=== PATIENT | male | born 1965 | race Caucasian/White ===

== ENCOUNTER 2016-10-05 01:08 | Inpatient (IN) | payer OTHER ==
[~2016-10-05] VITALS: Ht 188 cm; Wt 112.0 kg
[2016-10-05] VITALS (23 sets, daily range): BP systolic 124–156; BP diastolic 67–98; PULSE 71–119; RESP 16–17; TEMP 97.6–99.3; O2SAT 88–100
[2016-10-05] MEDS ORDERED: PROPOFOL 1000 MG/100 ML INJ 100 ML ONE (01:16)
[2016-10-05] MEDS ORDERED: ceFAZolin 2 GM PREMIX 50 ML ONE (01:23)
[2016-10-05] MEDS ORDERED: ceFAZolin 2 GM PREMIX 50 ML IV STA (01:26)
[2016-10-05] MEDS ORDERED: DIPHTH/TETANUS/ACEL PERTUSSIS (BOOSTER) 0.5 ML VIAL/PFS IM ONE (01:26)
[2016-10-05] MEDS ORDERED: SODIUM CHLOR 0.9% 1000 ML INJ 1,000 ML IV SCH (01:30)
[2016-10-05 01:36] LABS: AUTOMATED NEUTROPHIL # 5.9 TH/MM3 (1.8-7.7); BASOPHIL # 0.1 TH/MM3 (0-0.2); BASOPHIL % 1.1 % (0.0-2.0); EOSINOPHIL # 0.5 TH/MM3 (0-0.4); EOSINOPHIL % 3.7 % (0.0-4.0); HEMATOCRIT 43.5 % (39.0-51.0); HEMOGLOBIN 14.7 GM/DL (13.0-17.0); LYMPH % 42.4 % (9.0-44.0); LYMPHOCYTE # 5.8 TH/MM3 (1.0-4.8); MEAN CELL VOLUME 90.4 FL (80.0-100.0); MEAN CORPUSCULAR HEMOGLOBIN 30.5 PG (27.0-34.0); MEAN CORPUSCULAR HGB CONC 33.7 % (32.0-36.0); MEAN PLATELET VOLUME 9.5 FL (7.0-11.0); MONO % 9.3 % (0.0-8.0); MONOCYTE # 1.3 TH/MM3 (0-0.9); NEUT % 43.5 % (16.0-70.0); PLATELET COUNT 236 TH/MM3 (150-450); RED BLOOD COUNT 4.82 MIL/MM3 (4.50-5.90); RED CELL DISTRIBUTION WIDTH 13.2 % (11.6-17.2); WHITE BLOOD COUNT 13.6 TH/MM3 (4.0-11.0)
--- NOTE | 2016-10-05 01:38 | PD ---
HPI Chief Complaint: Trauma (Alert) Time Seen by Provider: 01:10 Travel History International Travel<30 days: No Contact w/Intl Traveler<30days: No History of Present Illness HPI The patient is a 51 year old male who presents to the [facility] emergency department with a history of being brought in as a trauma alert due to a head injury with altered mental status and a diminished GCS. According to ambulance services the patient was in the bathroom and fell and hit his head. This was an unwitnessed fall. According to the patient's the patient had been unresponsive for approximately 15 minutes by the time ambulance services arrived. When they arrived the patient was noted to be a GCS of 14, however his mentation would wax and wane and go down as low as 3 again. On arrival, the only thing that the patient would say is that he felt nauseated. The patient proceeded to have an episode of emesis. The patient was log rolled while connected to the backboard during his episode of emesis. Zofran 4 mg IV was given. Preparations were made to intubate the patient. No other history was available to be provided by the patient at this time. According to the patient's , the patient has a history of chronic daily headaches and hypertension. [facility] Past Medical History Narrative Medical The patient's past medical history is significant for pancreatitis, hypertension , chronic headaches, stroke 5 years ago. Past Surgical History Narrative Surgical The patient's past surgical history is reportedly none. Social History Alcohol Use: No Tobacco Use: No Substance Use: No Allergies-Medications (Allergen,Severity, Reaction): Coded Allergies: Penicillin (Verified Allergy, Unknown, 10/05/16) Sulfa (Verified Allergy, Unknown, 10/05/16) Comments The patient is noted to have an allergy to penicillin and sulfa according to his . Narrative Medication The patient takes one blood pressure medication twice a day, and was previously on a baby aspirin, however he has not been taking this recently. Review of Systems ROS Limitations: Clinical Condition, Unresponsive HENT: Positive: Headaches Gastrointestinal: Positive: Nausea, Vomiting Physical Exam Narrative General: The patient is a well-developed well-nourished male, uncomfortable appearing on arrival, reportedly stating that he is nauseated. The patient is brought in on a back board in full c-spine immobilization by emergency services. Head and Neck exam: Head is normocephalic atraumatic. No facial bone tenderness or increased facial bone mobility noted on palpation. Eyes: Pupils are equal round and reactive to light. Nose: Midline septum with pink mucous membranes Mouth: Dentition unremarkable. Moist mucus membranes. Posterior oropharynx is not erythematous. No tonsillar hypertrophy. Uvula midline. Airway patent. Neck: The patient is immobilized in a cervical collar. No tracheal deviation. The trachea appears midline. Cardiovascular: Regular rate and rhythm without murmurs, gallops, or rubs. No pulse deficit to the extremities. Lungs: Clear to auscultation bilaterally. No wheezes, rhonchi, or rales. No chest wall tenderness to palpation. No erythema or ecchymosis noted. No crepitus , step off, or flail segment noted. Abdomen: Soft, without tenderness to palpation in all 4 quadrants of the abdomen. No guarding, rebound, or rigidity. Normal bowel sounds are audible. Extremities: No clubbing, cyanosis, or edema. 2+ pulses in all 4 extremities. No extremity tenderness or deformity noted on palpation or passive/ active range of motion. Neurologic Exam: The patient is uncooperative with formal neurologic testing although he has no evidence of facial asymmetry. He is moving all extremities equally with 5 over 5 strength. Skin Exam: No rash noted. Intact skin that is warm and dry. Data Data Last Documented VS Vital Signs Date Time Temp Pulse Resp B/P Pulse Ox O2 Delivery O2 Flow Rate FiO2 10/05/16 02:18 96 100 10/05/16 02:00 15.00 Orders I-Stat Profile (10/05/16 01:10) I-Stat Creatinine (10/05/16 01:10) Complete Blood Count With Diff (10/05/16 01:10) Prothrombin Time / Inr (Pt) (10/05/16 01:10) Act Partial Throm Time (Ptt) (10/05/16 01:10) Type And Screen (10/05/16 01:10) Fibrinogen (10/05/16 01:10) Alcohol (Ethanol) (10/05/16 01:10) Urinalysis - C+S If Indicated (10/05/16 01:10) Drug Screen, Random Urine (10/05/16 01:10) Chest, Single Ap (10/05/16 01:10) Pelvis, Ap Only (Routine) (10/05/16 01:10) Ct Brain W/O Iv Contrast(Rout) (10/05/16 01:10) Ct Cerv Spine W/O Contrast (10/05/16 01:10) Ct Abd/Pel W Iv Contrast(Rout) (10/05/16 01:10) Ct Thorax/ Chest W Iv Contrast (10/05/16 01:10) Iv Access Insert/Monitor (10/05/16 01:10) Ecg Monitoring (10/05/16 01:10) Oximetry (10/05/16 01:10) Oxygen Administration (10/05/16 01:10) Propofol 1000 Mg/100 Ml Inj (Diprivan 10 (10/05/16 01:16) Cefazolin 2 Gm Premix (Ancef 2 Gm Premix (10/05/16 01:23) Nicardipine Inj (Cardene Inj) (10/05/16 01:26) Nicardipine Inj (Cardene Inj) (10/05/16 01:27) Cefazolin 2 Gm Premix (Ancef 2 Gm Premix (10/05/16 01:26) Skgk-Cxj-Mlhwuj (Booster) Inj (Boostrix (10/05/16 01:26) Sodium Chlor 0.9% 1000 Ml Inj (Ns 1000 M (10/05/16 01:30) Nicardipine Inj (Cardene Inj) (10/05/16 02:00) Iohexol 350 Inj (Omnipaque 350 Inj) (10/05/16 02:11) Etomidate Inj (Amidate Inj) (10/05/16 02:13) Admit Order (Ed Use Only) (10/05/16 02:24) Troponin I (10/05/16 00:15) Labs Laboratory Tests Test 10/05/16 00:15 White Blood Count 13.6 TH/MM3 Red Blood Count 4.82 MIL/MM3 Hemoglobin 14.7 GM/DL Bedside Hemoglobin 15.6 G/DL Hematocrit 43.5 % Bedside Hematocrit 46.0 % Mean Corpuscular Volume 90.4 FL Mean Corpuscular Hemoglobin 30.5 PG Mean Corpuscular Hemoglobin 33.7 % Concent Red Cell Distribution Width 13.2 % Platelet Count 236 TH/MM3 Mean Platelet Volume 9.5 FL Neutrophils (%) (Auto) 43.5 % Lymphocytes (%) (Auto) 42.4 % Monocytes (%) (Auto) 9.3 % Eosinophils (%) (Auto) 3.7 % Basophils (%) (Auto) 1.1 % Neutrophils # (Auto) 5.9 TH/MM3 Lymphocytes # (Auto) 5.8 TH/MM3 Monocytes # (Auto) 1.3 TH/MM3 Eosinophils # (Auto) 0.5 TH/MM3 Basophils # (Auto) 0.1 TH/MM3 CBC Comment AUTO DIFF Differential Total Cells 100 Counted Neutrophils % (Manual) 42 % Lymphocytes % 46 % Monocytes % 5 % Eosinophils % 5 % Basophils % 2 % Neutrophils # (Manual) 5.7 TH/MM3 Differential Comment FINAL DIFF MANUAL Atypical Lymphocytes % Platelet Estimate NORMAL Platelet Morphology Comment NORMAL Ovalocytes 1+ Prothrombin Time 10.2 SEC Prothromb Time International 0.9 RATIO Ratio Activated Partial 21.0 SEC Thromboplast Time Fibrinogen 249 mg/dL Bedside Sodium 146 MMOL/L Bedside Potassium 4.4 MMOL/L Bedside Chloride 105 MMOL/L Bedside Blood Urea Nitrogen 30 MG/DL Bedside Creatinine 1.3 MG/DL Bedside Glucose 145 MG/DL Troponin I LESS THAN 0.02 NG/ML Ethyl Alcohol Level LESS THAN 3 MG/DL Blood Type A POSITIVE Antibody Screen NEGATIVE MDM Medical Decision Making Medical Screen Exam Complete: Yes Emergency Medical Condition: Yes Medical Record Reviewed: Yes Interpretation(s) Last Impressions Pelvis X-Ray 10/05/16109 Signed Impressions: Service Date/Time: Wednesday, October 05, 2016 01:22 - CONCLUSION: Unremarkable examination of the pelvis. Ruben Acuña Jr., MD Head CT 10/05/16109 Signed Impressions: Service Date/Time: Wednesday, October 05, 2016 01:38 - CONCLUSION: Diffuse subarachnoid hemorrhage. Ruben Acuña Jr., MD Chest X-Ray 10/05/16109 Signed Impressions: Service Date/Time: Wednesday, October 05, 2016 01:22 - CONCLUSION: No acute disease. Ruben Acuña Jr., MD Chest CT 10/05/16109 Signed Impressions: Service Date/Time: Wednesday, October 05, 2016 01:46 - CONCLUSION: 1. No acute intrathoracic abnormality. 2. Bibasilar atelectasis. 3. Cardiomegaly. 4. Prior granulomatous disease. Ruben Acuña Jr., MD Cervical Spine CT 10/05/16109 Signed Impressions: Service Date/Time: Wednesday, October 05, 2016 01:40 - CONCLUSION: 1. No fracture or dislocation. 2. Multilevel degenerative changes. Ruben Acuña Jr., MD Abdomen/Pelvis CT 10/05/16109 Signed Impressions: Service Date/Time: Wednesday, October 05, 2016 01:46 - CONCLUSION: 1. No acute trauma. 2. Rounded area of decreased density involving the pancreatic head. I cannot completely exclude pancreatic head mass. At some point MRI of the pancreas is suggested to further evaluate. 3. Focal area of poor enhancement involving the left kidney. This may relate to an area of parenchymal scarring. I cannot completely exclude a mass. This can be further assessed with MRI as well. Ruben Acuña Jr., MD Neck CTA 10/05/16 Signed Impressions: Service Date/Time: Wednesday, October 05, 2016 03:13 - CONCLUSION: Normal examination. Ruben Acuña Jr., MD Head CTA 10/05/16 Signed Impressions: Service Date/Time: Wednesday, October 05, 2016 03:13 - CONCLUSION: 3 mm basilar tip aneurysm. Ruben Acuña Jr., MD Differential Diagnosis Intracranial hemorrhage, versus cervical spine fracture, versus intrathoracic trauma, versus intra-abdominal trauma. Narrative Course During the course of the patients emergency department visit, the patients history, examination, and differential diagnosis were reviewed with the patient. The patient had IV access obtained prior to arrival. The patient was reporting nausea. The patient had Zofran ordered, however prior to this being given the patient began to have vomiting. The patient was log rolled off the backboard and suctioned during vomiting. The patient was prepared for RSI to protect his airway and for his waxing and waning mentation. An i-STAT with creatinine was ordered. Chest x-ray, pelvic x-ray was ordered. The patient was intubated by ia with an 8 size endotracheal tube. The patient was sedated with propofol. The patient's blood pressure continued to be very high systolic 240/120. The patient was placed on a Cardene drip. The patients laboratory studies were reviewed and remarkable for a white count of 13.6, hemoglobin 14.7, platelets 236 with 9.3 monocytes, i-STAT with creatinine reveals a sodium of 146, potassium 4.4, BUN 30, creatinine 1.3, glucose 145, troponin I less than 0.02, PT 10.2, PTT 21, urine drug screen is negative, alcohol less than 3, urinalysis shows 300 glucose small occult blood. Radiology studies were reviewed and remarkable for chest x-ray that shows no acute abnormality, pelvic x-ray shows no acute abnormality. The patient was called as a trauma alert to this facility and was called at 12:58 AM, however he is in the process of taking the patient to the OR , therefore he recommended that I call the backup trauma surgeon. I spoke to Dr. Marina at 1 AM. He agreed that we would come in the trauma alert. The patient was accompanied to CT by Dr. Marina who assumed care of the patient. The patients results were discussed with the patient, including the plan of care. I explained that further testing and/ or monitoring is indicated based on the patients history, examination, and/ or laboratory findings. Therefore, I recommended admission for additional evaluation. The patient expressed understanding and was agreeable with this plan. The patient was admitted to the hospital in critical condition and sent to a bed under the care of the machine paint mixer. Critical Care Narrative Aggregate critical care time was 33 minutes. Time to perform other separately billable procedures was not included in the critical care time. My time did not include minutes spent treating any other patients simultaneously or on activities that did not directly contribute to the patient's treatment. The services I provided to this patient were to treat and/or prevent clinically significant deterioration that could result in: Hypoxic encephalopathy, versus respiratory failure, versus cardiovascular collapse. I provided critical care services requiring my management, as noted below: Chart data review, documentation time, medication orders and management, vital sign assessments/reviewing monitor data, ordering and reviewing lab tests, ordering and interpreting/reviewing x-rays and diagnostic studies, care of the patient and discussion of the patient with the admitting physicians. Procedures Procedure Narrative The patient was put in optimal position for the procedure. Rapid sequence intubation was initiated by me using 20 milligrams of etomidate IV and 100 milligrams of succinylcholine IV. The patient was intubated with the glide scope with a 8 cuffed endotracheal tube. Tube placement was confirmed by visualization of the tube and balloon passing through the cords, capnometry and subsequent chest x-ray. Breath sounds were equal and well aerated bilaterally postintubation. No breath sounds over stomach. Patient tolerated procedure well. Physician Communication Physician Communication The patient's case was discussed with Dr. Marina who arrives in the trauma bay and assumed care of the patient when the patient was transported to CT. Diagnosis Primary Impression: Intracranial hemorrhage Additional Impression: Hypertension Qualified Code: I10 - Essential hypertension Admitting Information Admitting Physician Requests: Admit Anabela Jack MD Oct 05, 2016 01:38
[2016-10-05 01:51] LABS: INTERNATIONAL NORMALIZED RATIO 0.9 RATIO; PROTHROMBIN TIME - PATIENT 10.2 SEC (9.8-11.6)
--- NOTE | 2016-10-05 01:53 | RADRPT ---
EXAM DATE/TIME: 10/05/2016 01:22 [facility] COMPARISON: No previous studies available for comparison. INDICATIONS : Trauma alert. Fall. MEDICAL HISTORY : Non-responsive SURGICAL HISTORY : Non-responsive ENCOUNTER: Initial ACUITY: 1 day PAIN SCORE: Non-responsive. LOCATION: Bilateral chest FINDINGS: A single view of the chest demonstrates the lungs to be symmetrically aerated without evidence of mas s, infiltrate or effusion. The cardiomediastinal contours are unremarkable. Osseous structures are intact. CONCLUSION: No acute disease. Ruben Acuña Jr., MD on October 05, 2016 at 1:51 Board Certified Radiologist. This report was verified electronically.
--- NOTE | 2016-10-05 01:53 | RADRPT ---
EXAM DATE/TIME: 10/05/2016 01:22 [facility] COMPARISON: No previous studies available for comparison. INDICATIONS : Trauma alert. Fall. MEDICAL HISTORY : Non-responsive SURGICAL HISTORY : Non-responsive ENCOUNTER: Initial ACUITY: 1 day PAIN SCORE: Non-responsive. LOCATION: Bilateral pelvis FINDINGS: 2 frontal views of the pelvis demonstrate no evidence of fracture. The bony pelvic ring is intact. Bony mineralization is normal. The soft tissues are intact. CONCLUSION: Unremarkable examination of the pelvis. Ruben Acuña Jr., MD on October 05, 2016 at 1:51 Board Certified Radiologist. This report was verified electronically.
[2016-10-05] MEDS ORDERED: niCARdipine INJ 25 MG in SODIUM CHLOR 0.9% 250 ML INJ 250 ML IV ONE (02:00)
[2016-10-05] MEDS ORDERED: IOHEXOL 350 MG/ML 10 ML VIAL (for RAD DIAG) IV ONE ×2 (02:11→04:15)
--- NOTE | 2016-10-05 02:11 | RADRPT ---
EXAM DATE/TIME: 10/05/2016 01:46 [facility] COMPARISON: CT BRAIN W/O CONTRAST, October 05, 2016, 1:38. INDICATIONS : Trauma alert. Fall. IV CONTRAST: 97 cc Omnipaque 350 (iohexol) IV ; Cumulative dose for multiple exams. RADIATION DOSE: 15.86 CTDIvol (mGy) ; Combined studies - Thorax/Abdomen/Pelvis MEDICAL HISTORY : Non-responsive. SURGICAL HISTORY : Non-responsive. ENCOUNTER: Initial ACUITY: 1 day PAIN SCALE: Non-responsive LOCATION: chest TECHNIQUE: Volumetric scanning of the chest was performed. Using automated exposure control and adjustment of t he mA and/or kV according to patient size, radiation dose was kept as low as reasonably achievable to obtain optimal diagnostic quality images. FINDINGS: LUNGS: Calcified granulomas are noted. Dependent atelectasis observed bilaterally. No infiltrate. Tip of the endotracheal tube at the danika. PLEURA: There is no pleural thickening or pleural effusion. MEDIASTINUM: The heart is moderately enlarged. A small amount of fluid is seen within the superior pericardial rec ess. The aorta is at the upper range of normal in terms of size with the ascending aorta measuring 4 cm in diameter. Homogeneously calcified lymph nodes are seen within the middle mediastinum. Pulmonary arteries are normal in caliber. No adenopathy or hematoma. AXILLAE: Within normal limits. No lymphadenopathy. SKELETAL: Within normal limits for patient age. MISCELLANEOUS: See the CT of the abdomen and pelvis reported separately. CONCLUSION: 1. No acute intrathoracic abnormality. 2. Bibasilar atelectasis. 3. Cardiomegaly. 4. Prior granulomatous disease. Ruben Acuña Jr., MD on October 05, 2016 at 2:04 Board Certified Radiologist. This report was verified electronically.
--- NOTE | 2016-10-05 02:12 | RADRPT ---
EXAM DATE/TIME: 10/05/2016 01:38 [facility] COMPARISON: No previous studies available for comparison. INDICATIONS : Trauma alert. Fall. RADIATION DOSE: 69.15 CTDIvol (mGy) MEDICAL HISTORY : Non-responsive. SURGICAL HISTORY : Non-responsive. ENCOUNTER: Initial ACUITY: 1 day PAIN SCALE: Non-responsive LOCATION: cranial TECHNIQUE: Multiple contiguous axial images were obtained of the head. Using automated exposure control and adj ustment of the mA and/or kV according to patient size, radiation dose was kept as low as reasonably a chievable to obtain optimal diagnostic quality images. FINDINGS: Extensive subarachnoid hemorrhage is observed. The epicenter appears to be within the suprasellar cis tern. It tracks in the sylvian fissures, along the falx, and over both cerebral convexities. No intra parenchymal or intraventricular hemorrhage is observed. Brain parenchyma shows normal attenuation oth erwise. The calvarium is intact. Paranasal sinuses and mastoid air cells are clear. CONCLUSION: Diffuse subarachnoid hemorrhage. Ruben Acuña Jr., MD on October 05, 2016 at 2:10 Board Certified Radiologist. This report was verified electronically.
[2016-10-05] MEDS ORDERED: ETOMIDATE 20 MG/10 ML VIAL ONE (02:13)
[2016-10-05] MEDS ORDERED: NS + KCL 20 MEQ INJ 1,000 ML IV SCH (02:15)
--- NOTE | 2016-10-05 02:15 | RADRPT ---
EXAM DATE/TIME: 10/05/2016 01:40 [facility] COMPARISON: No previous studies available for comparison. INDICATIONS : Trauma alert. Fall. RADIATION DOSE: 50.92 CTDIvol (mGy) MEDICAL HISTORY : Non-responsive. SURGICAL HISTORY : Non-responsive. ENCOUNTER: Initial ACUITY: 1 day PAIN SCALE: Non-responsive LOCATION: neck TECHNIQUE: Volumetric scanning of the cervical spine was performed. Multiplanar reconstructions in the sagittal, coronal and oblique axial planes were performed. Using automated exposure control and adjustment o f the mA and/or kV according to patient size, radiation dose was kept as low as reasonably achievable to obtain optimal diagnostic quality images. FINDINGS: VERTEBRAE: Normal vertebral body height. ALIGNMENT: No evidence of subluxation. C2-C3: The bony spinal canal is normal in size. No evidence of disc bulge or herniation. The neural forami na are bilaterally patent. C3-C4: The bony spinal canal is normal in size. No evidence of disc bulge or herniation. The neural forami na are bilaterally patent. C4-C5: The bony spinal canal is normal in size. No evidence of disc bulge or herniation. The neural forami na are bilaterally patent. C5-C6: The bony spinal canal is normal in size. No evidence of disc bulge or herniation. Bony uncovertebral hypertrophy generates mild left neural foraminal narrowing. The right remains patent. C6-C7: A broad-based disc osteophyte complex. This flattens the ventral portion of the thecal space. Bony un covertebral hypertrophy generates significant bilateral neural foraminal narrowing. C7-T1: The bony spinal canal is normal in size. No evidence of disc bulge or herniation. The neural forami na are bilaterally patent. CONCLUSION: 1. No fracture or dislocation. 2. Multilevel degenerative changes. Ruben Acuña Jr., MD on October 05, 2016 at 2:11 Board Certified Radiologist. This report was verified electronically.
--- NOTE | 2016-10-05 02:20 | RADRPT ---
EXAM DATE/TIME: 10/05/2016 01:46 [facility] COMPARISON: No previous studies available for comparison. INDICATIONS : Trauma alert. Fall. IV CONTRAST: 97 cc Omnipaque 350 (iohexol) IV ; Cumulative dose for multiple exams. ORAL CONTRAST: No oral contrast ingested. RADIATION DOSE: 15.86 CTDIvol (mGy) ; Combined studies - Thorax/Abdomen/Pelvis MEDICAL HISTORY : Non-responsive. SURGICAL HISTORY : Non-responsive. ENCOUNTER: Initial ACUITY: 1 day PAIN SCALE: Non-responsive LOCATION: Abdomen. TECHNIQUE: Volumetric scanning of the abdomen and pelvis was performed. Using automated exposure control and ad justment of the mA and/or kV according to patient size, radiation dose was kept as low as reasonably achievable to obtain optimal diagnostic quality images. FINDINGS: LOWER LUNGS: See the CT of the thorax dictated separately. LIVER: Homogeneous low density without lesion. There is no dilation of the biliary tree. No calcified gall stones. SPLEEN: Normal size without lesion. PANCREAS: There is a 3.5 x 2.7 cm area of decreased density involving the pancreatic head. No ductal dilatation . The remaining pancreas is unremarkable. KIDNEYS: There is a 4.0 x 3.7 x 1.6 cm area of decreased density involving the anterolateral aspects of the mi dpole the left kidney. This area shows poor enhancement. No contour irregularity is observed. The rig ht kidney is unremarkable. ADRENAL GLANDS: Within normal limits. VASCULAR: There is no aortic aneurysm. BOWEL/MESENTERY: The stomach, small bowel, and colon demonstrate no acute abnormality. There is no free intraperitone al air or fluid. ABDOMINAL WALL: Within normal limits. RETROPERITONEUM: There is no lymphadenopathy. BLADDER: No wall thickening or mass. REPRODUCTIVE: Within normal limits. INGUINAL: There is no lymphadenopathy or hernia. MUSCULOSKELETAL: Within normal limits for patient age. CONCLUSION: 1. No acute trauma. 2. Rounded area of decreased density involving the pancreatic head. I cannot completely exclude pancr eatic head mass. At some point MRI of the pancreas is suggested to further evaluate. 3. Focal area of poor enhancement involving the left kidney. This may relate to an area of parenchyma l scarring. I cannot completely exclude a mass. This can be further assessed with MRI as well. Ruben Acuña Jr., MD on October 05, 2016 at 2:14 Board Certified Radiologist. This report was verified electronically.
[2016-10-05 02:23] LABS: BASOPHILS 2 % (0-2); LYMPHOCYTES 46 % (9-44); MONOCYTES 5 % (0-8); NEUTROPHIL # MANUAL DIFF 5.7 TH/MM3 (1.8-7.7); POLYS (SEG NEUTROPHILS) 42 % (16-70)
[2016-10-05 02:24] LABS: OVALOCYTES 1+ (NORMAL)
[2016-10-05] MEDS: SODIUM CHLOR 0.9% 1000 ML INJ 1,000 ML IV SCH ×2 (02:31→17:19)
[2016-10-05] MEDS ORDERED: EPINEPHrine HCL (1:10,000) 1 MG/10 ML SYRINGE ONE (02:32)
[2016-10-05] MEDS ORDERED: LIDOCAINE HCL 2% 100 MG/5 ML SYRINGE ONE (02:33)
[2016-10-05] MEDS ORDERED: ATROPINE SULFATE 1 MG/10 ML SYRINGE ONE (02:33)
--- NOTE | 2016-10-05 02:43 | PD.CONS ---
History of Present Illness Service Neurosurgery Consult Requested By Gen.Surgery trauma service Reason for Consult [facility] Primary Care Physician Unknown Diagnoses: History of Present Illness 51-year-old male brought to the emergency room per EMS earlier this morning. According to the patient's , around midnight last night she heard a sound in the bathroom and found the patient lying unresponsive on the floor in the shower. Approximately 15 minutes unconscious. He was brought to the hospital by EMS with possible seizure activity in route to the hospital. Reported mental status improved initially on arrival to the emergency room with GCS 14. Positive nausea and emesis in the emergency room prior to intubation. The patient's states that he has had chronic headaches, not necessarily changed recently. Review of Systems unresponsive intubated No recent health complaints according to the patient's except for chronic headaches. Past Family Social History Allergies: Coded Allergies: Penicillin (Verified Allergy, Unknown, 10/05/16) Sulfa (Verified Allergy, Unknown, 10/05/16) Past Medical History Per the family, no cardiac, pulmonary, gastrointestinal disease, diabetes,. Positive Hypertension Previous CVA Past Surgical History No previous surgeries Reported Medications No prescription medications Family History Negative cardiac disease, cancer, neurologic disease, aneurysms Social History No cigarettes or significant alcohol for approximately 20 years. Physical Exam Vital Signs Vital Signs Date Time Temp Pulse Resp B/P Pulse Ox O2 Delivery O2 Flow Rate FiO2 10/05/16 02:05 95 100 10/05/16 02:00 99 15.00 100 Physical Exam Gen.: Mildly obese male, intubated in the intensive care Head: The scalp lacerations or contusions ENT: No CSF otorrhea or rhinorrhea. No facial edema or periorbital edema or ecchymosis. No palpable facial fracture or deformity. Intubated. Eyes: Sclerae are clear, nonicteric Respirations: Clear to auscultation Cardiac: Regular without murmur. No carotid bruit Neck: No nuchal rigidity. No ecchymosis or edema Extremities: No long bone or joint deformity. No extremity edema. Dorsalis pedis and posterior tibial pulses 2+ Skin: No significant lacerations contusions, lesions Neurologic: Pupils 3 mm nonreactive Minimal oculocephalic responses and corneal responses No facial grimacing to deep pain Positive mild cough with suctioning Minimal response to pain upper greater than lower extremities Sherine's response absent bilateral No ankle clonus Laboratory Laboratory Tests Test 10/05/16 00:15 White Blood Count 13.6 Red Blood Count 4.82 Hemoglobin 14.7 Bedside Hemoglobin 15.6 Hematocrit 43.5 Bedside Hematocrit 46.0 Mean Corpuscular Volume 90.4 Mean Corpuscular Hemoglobin 30.5 Mean Corpuscular Hemoglobin 33.7 Concent Red Cell Distribution Width 13.2 Platelet Count 236 Mean Platelet Volume 9.5 Neutrophils (%) (Auto) 43.5 Lymphocytes (%) (Auto) 42.4 Monocytes (%) (Auto) 9.3 Eosinophils (%) (Auto) 3.7 Basophils (%) (Auto) 1.1 Neutrophils # (Auto) 5.9 Lymphocytes # (Auto) 5.8 Monocytes # (Auto) 1.3 Eosinophils # (Auto) 0.5 Basophils # (Auto) 0.1 CBC Comment AUTO DIFF Differential Total Cells 100 Counted Neutrophils % (Manual) 42 Lymphocytes % 46 Monocytes % 5 Eosinophils % 5 Basophils % 2 Neutrophils # (Manual) 5.7 Differential Comment FINAL DIFF MANUAL Atypical Lymphocytes Platelet Estimate NORMAL Platelet Morphology Comment NORMAL Ovalocytes 1+ Prothrombin Time 10.2 Prothromb Time International 0.9 Ratio Activated Partial 21.0 Thromboplast Time Fibrinogen 249 Bedside Sodium 146 Bedside Potassium 4.4 Bedside Chloride 105 Bedside Blood Urea Nitrogen 30 Bedside Creatinine 1.3 Bedside Glucose 145 Ethyl Alcohol Level LESS THAN 3 Blood Type A POSITIVE Result Diagram: 10/05/1614 Imaging 10/05/16 CT Head images reviewed reveal diffuse SAH, Mild hydrocephalus Pelvis X-Ray 10/05/16109 Signed Impressions: Service Date/Time: Wednesday, October 05, 2016 01:22 - CONCLUSION: Unremarkable examination of the pelvis. Ruben Acuña Jr., MD Head CT 10/05/16109 Signed Impressions: Service Date/Time: Wednesday, October 05, 2016 01:38 - CONCLUSION: Diffuse subarachnoid hemorrhage. Ruben Acuña Jr., MD Chest X-Ray 10/05/16109 Signed Impressions: Service Date/Time: Wednesday, October 05, 2016 01:22 - CONCLUSION: No acute disease. Ruben Acuña Jr., MD Chest CT 10/05/16109 Signed Impressions: Service Date/Time: Wednesday, October 05, 2016 01:46 - CONCLUSION: 1. No acute intrathoracic abnormality. 2. Bibasilar atelectasis. 3. Cardiomegaly. 4. Prior granulomatous disease. Ruben Acuña Jr., MD Cervical Spine CT 10/05/16109 Signed Impressions: Service Date/Time: Wednesday, October 05, 2016 01:40 - CONCLUSION: 1. No fracture or dislocation. 2. Multilevel degenerative changes. Ruben Acuña Jr., MD Abdomen/Pelvis CT 10/05/16109 Signed Impressions: Service Date/Time: Wednesday, October 05, 2016 01:46 - CONCLUSION: 1. No acute trauma. 2. Rounded area of decreased density involving the pancreatic head. I cannot completely exclude pancreatic head mass. At some point MRI of the pancreas is suggested to further evaluate. 3. Focal area of poor enhancement involving the left kidney. This may relate to an area of parenchymal scarring. I cannot completely exclude a mass. This can be further assessed with MRI as well. Ruben Acuña Jr., MD Assessment and Plan Assessment and Plan Impression: Aneurysmal subarachnoid hemorrhage HTN Plan: Findings were initially discussed with the patient's on the telephone. Advised proceeding with ventriculostomy catheter placement. Patient's declined initial request for consent, preferring to wait until she arrives at the hospital for further discussion of the patient's findings and treatment plan. Further discussion with the patient's in the hospital this morning per the undersigned. She agrees to proceed with ventriculostomy catheter which will be dictated separately. Discussed with radiology regarding potential for endovascular coiling of aneurysm. 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 [place]. SBP 130 - 150 Nimodipine Ulcer prophylaxis Non-chemical DVT prophylaxis Cocktail Server consultation Gino Mace MD Oct 05, 2016 02:43
[2016-10-05] MEDS ORDERED: LORazepam 2 MG/ML VIAL IV PRN (02:45)
[2016-10-05] MEDS ORDERED: MISCELLANEOUS NURSING INFORMATION XX SCH (02:45)
[2016-10-05] MEDS ORDERED: CHLORHEXIDINE GLUCONATE 2 % 1 PACK (2 CLOTHS) TOP PRN (02:45)
--- NOTE | 2016-10-05 02:53 | HHI.HP ---
HPI Service Critical Care Medicine Primary Care Physician Unknown Admission Diagnosis Intracranial hemorrhage Diagnosis: Travel History International Travel<30 Days: No Contact w/Intl Traveler <30 Da: No History of Present Illness 51 year old male presents with being brought in as a trauma alert due to a head injury with altered mental status and a diminished GCS. The patient was in the bathroom and fell and hit his head. This was an unwitnessed fall. According to the patient's the patient had been unresponsive for approximately 15 minutes by the time ambulance services arrived. When they arrived the patient was noted to be a GCS of 14, however his mentation would wax and wane and go down as low as 3 again. On arrival to the emergency department he felt extremely nauseated. The CT of the head revealed diffuse subarachnoid bleed. Review of Systems ROS Unable to obtain patient is sedated and intubated Past Family Social History Allergies: Coded Allergies: Penicillin (Verified Allergy, Unknown, 10/05/16) Sulfa (Verified Allergy, Unknown, 10/05/16) Past Medical History Hypertension CVA 5 years ago Past Surgical History None Reported Medications Unable to obtain patient is sedated and intubated Active Ordered Medications Current Medications Medications (Trade) Dose Ordered Sig/Nava Route PRN Reason Start Time Stop Time Status Last Admin Dose Admin Sodium Chloride 1,000 ml @ 0 mls/hr Q0M IV 10/05/16 01:30 Sodium Chloride (NS 1000 ml Inj) 1,000 ml @ 84 mls/hr [id number] IV 10/05/16 02:31 UNV Acetaminophen (Tylenol) 650 mg Q6H PRN PO PAIN 1-10 AND/OR FEVER >101F 10/05/16 02:45 Morphine Sulfate (Morphine Inj) 2 mg Q2H PRN IV PAIN SCALE 6 TO 10 10/05/16 02:45 Pantoprazole Sodium (Protonix Inj) 40 mg DAILY IV 10/05/16 09:00 Lorazepam (Ativan Inj) 2 mg Q4H PRN IV Agitation/Sedation 10/05/16 02:45 Artificial Tears (Tears Naturale Opth Soln) 1 drop TID EACH EYE 10/05/16 09:00 Ondansetron HCl (Zofran Inj) 4 mg Q6H PRN IV NAUSEA OR VOMITING 10/05/16 02:45 Metoclopramide HCl (Reglan Inj) 10 mg Q6H PRN IV NAUSEA OR VOMITING 10/05/16 02:45 Docusate Sodium (Colace Liq) 100 mg Q12H G-TUBE 10/05/16 02:45 UNV Miscellaneous Information 1 [id number] XX 10/05/16 02:45 Chlorhexidine Gluconate (Chlorhexidine 2% Cloth) 3 pack Taper DAILY@04 TOP 10/05/16 04:00 10/01/17 03:59 Chlorhexidine Gluconate 3 pack 3 pack UNSCH PRN TOP HYGIENIC CARE 10/05/16 02:45 Propofol (Diprivan 1000 Mg/100ml Inj) 100 ml @ 0 mls/hr TITRATE IV 10/05/16 02:45 Nimodipine 60 mg 60 mg Q4HR PO 10/05/16 04:00 UNV Potassium Chloride/Sodium Chloride 1,000 ml @ 100 mls/hr Q10H IV 10/05/16 02:15 UNV Levetriacetam/ Sodium Chloride (Keppra Inj/NS Inj) 105 ml @ 420 mls/hr Q12HR IV 10/05/16 09:00 UNV Family History Unable to obtain Social History Negative 3 Physical Exam Vital Signs Vital Signs Date Time Temp Pulse Resp B/P Pulse Ox O2 Delivery O2 Flow Rate FiO2 10/05/16 02:18 96 100 10/05/16 02:05 95 100 10/05/16 02:00 99 15.00 100 Physical Exam GENERAL: Well-nourished, obese patient. SKIN: Warm and dry. HEAD: Normocephalic. EYES: No scleral icterus. No injection or drainage. Pupils are 3 mm and brisk bilaterally NECK: Supple, trachea midline. No JVD or lymphadenopathy. CARDIOVASCULAR: Regular rate and rhythm without murmurs, gallops, or rubs. RESPIRATORY: Breath sounds equal bilaterally. No accessory muscle use. GASTROINTESTINAL: Abdomen soft, non-tender, nondistended. MUSCULOSKELETAL: No cyanosis, or edema. BACK: Nontender without obvious deformity. No CVA tenderness. EXTREMITIES: Nonfocal clubbing cyanosis or edema Laboratory Laboratory Tests Test 10/05/16 00:15 White Blood Count 13.6 Red Blood Count 4.82 Hemoglobin 14.7 Bedside Hemoglobin 15.6 Hematocrit 43.5 Bedside Hematocrit 46.0 Mean Corpuscular Volume 90.4 Mean Corpuscular Hemoglobin 30.5 Mean Corpuscular Hemoglobin 33.7 Concent Red Cell Distribution Width 13.2 Platelet Count 236 Mean Platelet Volume 9.5 Neutrophils (%) (Auto) 43.5 Lymphocytes (%) (Auto) 42.4 Monocytes (%) (Auto) 9.3 Eosinophils (%) (Auto) 3.7 Basophils (%) (Auto) 1.1 Neutrophils # (Auto) 5.9 Lymphocytes # (Auto) 5.8 Monocytes # (Auto) 1.3 Eosinophils # (Auto) 0.5 Basophils # (Auto) 0.1 CBC Comment AUTO DIFF Differential Total Cells 100 Counted Neutrophils % (Manual) 42 Lymphocytes % 46 Monocytes % 5 Eosinophils % 5 Basophils % 2 Neutrophils # (Manual) 5.7 Differential Comment FINAL DIFF MANUAL Atypical Lymphocytes Platelet Estimate NORMAL Platelet Morphology Comment NORMAL Ovalocytes 1+ Prothrombin Time 10.2 Prothromb Time International 0.9 Ratio Activated Partial 21.0 Thromboplast Time Fibrinogen 249 Bedside Sodium 146 Bedside Potassium 4.4 Bedside Chloride 105 Bedside Blood Urea Nitrogen 30 Bedside Creatinine 1.3 Bedside Glucose 145 Ethyl Alcohol Level LESS THAN 3 Blood Type A POSITIVE Antibody Screen NEGATIVE Result Diagram: 10/05/1614 Imaging Last 24 hours Impressions Pelvis X-Ray 10/05/16109 Signed Impressions: Service Date/Time: Wednesday, October 05, 2016 01:22 - CONCLUSION: Unremarkable examination of the pelvis. Ruben Acuña Jr., MD Head CT 10/05/16109 Signed Impressions: Service Date/Time: Wednesday, October 05, 2016 01:38 - CONCLUSION: Diffuse subarachnoid hemorrhage. Ruben Acuña Jr., MD Chest X-Ray 10/05/16109 Signed Impressions: Service Date/Time: Wednesday, October 05, 2016 01:22 - CONCLUSION: No acute disease. Ruben Acuña Jr., MD Chest CT 10/05/16109 Signed Impressions: Service Date/Time: Wednesday, October 05, 2016 01:46 - CONCLUSION: 1. No acute intrathoracic abnormality. 2. Bibasilar atelectasis. 3. Cardiomegaly. 4. Prior granulomatous disease. Ruben Acuña Jr., MD Cervical Spine CT 10/05/16109 Signed Impressions: Service Date/Time: Wednesday, October 05, 2016 01:40 - CONCLUSION: 1. No fracture or dislocation. 2. Multilevel degenerative changes. Ruben Acuña Jr., MD Abdomen/Pelvis CT 10/05/16 0110 Signed Impressions: Service Date/Time: Wednesday, October 05, 2016 01:46 - CONCLUSION: 1. No acute trauma. 2. Rounded area of decreased density involving the pancreatic head. I cannot completely exclude pancreatic head mass. At some point MRI of the pancreas is suggested to further evaluate. 3. Focal area of poor enhancement involving the left kidney. This may relate to an area of parenchymal scarring. I cannot completely exclude a mass. This can be further assessed with MRI as well. Ruben Acuña Jr., MD Assessment and Plan Problem List: (1) Intracranial hemorrhage ICD Code: I62.9 Status: Acute (2) Hypertension ICD Code: I10 Status: Acute Assessment and Plan Respiratory failure - Intubated for airway protection - No weaning until neurologically improved and stable - ABGs chest x-rays daily - DuoNeb's as needed for wheezing Subarachnoid bleed - [place]úñ[place] 5 Lucas grade 3 - Most likely an aneurysm - CTA - Possibly angiogram - Nimodipine. - Pravachol - SBP goal less than 140 - Daily TCD's Hypertension - Nimodipine drip to keep SBP less than 140 - Labetalol when necessary DVT GI prophylaxis - Teds SCDs - No pharmacological prophylaxis due to ICH - Protonix IV Critical Care: The total critical care time was 35 minutes. Time to perform other separately billable procedures was not included in the critical care time. Problem Qualifiers (1) Hypertension: Qualified Code: I10 - Essential hypertension David Del Rio MD Oct 05, 2016 02:53
[2016-10-05 03:07] LABS: BILIRUBIN, URINE NEG (NEG); BLOOD, URINE SMALL (NEG); GLUCOSE,URINE 300 mg/dL (NEG); KETONE, URINE NEG (NEG); MUCUS URINE FEW /lpf (OCC); NITRITE,URINE NEG (NEG); URINE COLOR COLORLESS (YELLW/STRAW); URINE LEUKOCYTE ESTERASE NEG (NEG)
[2016-10-05 03:58] LABS: TROPONIN I LESS THAN 0.02 NG/ML (0.02-0.05)
[2016-10-05] MEDS ORDERED: niMODipine 30 MG CAP PO SCH (04:00)
[2016-10-05] MEDS: DOCUSATE SODIUM 100 MG CAP G-TUBE SCH ×2 (04:42→17:19)
[2016-10-05] MEDS: niCARdipine INJ 25 MG in SODIUM CHLOR 0.9% 250 ML INJ 250 ML IV SCH (04:42)
[2016-10-05] MEDS: niMODipine 30 MG CAP PO SCH ×6 (04:42→23:54)
[2016-10-05] MEDS: CHLORHEXIDINE GLUCONATE 2 % 1 PACK (2 CLOTHS) TOP SCH (04:43)
[2016-10-05] MEDS: PROPOFOL 1000 MG/100 ML INJ 100 ML IV SCH ×4 (04:58→19:18)
--- NOTE | 2016-10-05 05:37 | MB ---
cc: HARMAN WALDEN MD DATE OF CONSULTATION 10/05/[address] Walden HISTORY OF PRESENT DISEASE This 51-year-old male was brought in as a Priority One Trauma Alert on spinal board with C-collar in place. According to the medics, the patient fell in the bathtub, lost consciousness. Jesus coma scale on arrival was 3 to 5, then improved in transfer. On arrival to the hospital Jesus Coma Scale was maybe 12 or so and, according to Dr. Jack, she managed to talk to the patient a little bit and then he again lost consciousness. He started vomiting and was intubated and ventilated, after which he was taken to CAT scan. PAST MEDICAL HISTORY 1. Uncontrolled hypertension. 2. Previous stroke. 3. Obesity. PAST SURGICAL HISTORY Unknown. MEDICATIONS Unknown. ALLERGIES Unknown. PHYSICAL EXAMINATION GENERAL: A 51-year-old obese male. HEENT: Normocephalic. No trauma to the head. Pupils are equal, poorly reactive. Extraocular muscles cannot be tested. No hemotympanum. No Saenz sign. No raccoon's sign. No signs of trauma to the head. NECK: C-collar is in place. There is no signs of trauma to the neck. CHEST: Bilateral breath sounds. No signs of trauma to the chest. The patient is intubated and ventilated. HEART: Regular rhythm. The patient's blood pressure is 250/130 and the patient is placed on Cardene drip. ABDOMEN: Soft, obese. Hypoactive bowel sounds. No signs of trauma to the abdomen. No rebound, no guarding, no masses. EXTREMITIES: The patient has proximal and distal pulses. No signs of vascular acute deficit. BACK: Normal. No signs of trauma to the back. NEUROLOGIC EXAMINATION: The patient is now intubated and ventilated. [place] Coma Scale is now about 5; the patient is withdrawing to pain. IMPRESSION AND RECOMMENDATIONS I reviewed laboratory and diagnostic procedures. This gentleman was brought in as a Trauma Alert. However, not everybody that falls in the bathtub has a trauma and with current presentation by history clinical exam and presenting scenario there is no question my mind that patient had a hypertensive bleed. There is diffuse subarachnoid bleed over the base of the brain which is consistent with hypertensive bleed and likely a small aneurysm. The patient would benefit from CTA at some point in next 12 hours to rule out or localized an aneurysm, and if such is detected patient should have coiling of the same. I spoke to Dr. Mace. We will hand over the patient to medical woolen suiting shrinker for further care. Harman BENÍTEZ/JUSTINA /2:12 AM /5:25 AM KATLYN
--- NOTE | 2016-10-05 05:57 | RADRPT ---
EXAM DATE/TIME: 10/05/2016 03:13 [facility] COMPARISON: No previous studies available for comparison. INDICATIONS : Aneurysm/ Head injury with altered mental status. IV CONTRAST: 75 cc Omnipaque 350 (iohexol) IV ; Cumulative dose for multiple exams. RADIATION DOSE: 27.27 CTDIvol (mGy) ; Combined studies MEDICAL HISTORY : unknown SURGICAL HISTORY : unresponsive ENCOUNTER: Initial ACUITY: 1 day PAIN SCALE: Non-responsive LOCATION: cranial Elevated flow velocities and ICA/CCA ratios have been found to correlate with increased degrees of vessel stenosis, calculated as percentage of diameter relative to a normal segment of distal ICA/CCA. TECHNIQUE: Volumetric scanning was performed using a multirow detector CT scanner. The data was post processed with a variety of visualization algorithms including full-volume maximum intensity projection, multip lanar sliding thin-slab reformation, curved-planar reformation, and surface-rendering techniques. Us ing automated exposure control and adjustment of the mA and/or kV according to patient size, radiatio n dose was kept as low as reasonably achievable to obtain optimal diagnostic quality images. FINDINGS: AORTIC ARCH: There is a three-vessel origin of the great vessels from the aorta. No evidence of ostial narrowing. RIGHT CAROTID: The common carotid artery is intact. The carotid bulb has a normal configuration without ulceration o r narrowing. The internal carotid artery lumen is smooth without stenosis. The external carotid be ry is intact. LEFT CAROTID: The common carotid artery is intact. The carotid bulb has a normal configuration without ulceration or narrowing. The internal carotid artery lumen is smooth without stenosis. The external carotid ar velasquez is intact. VERTEBRALS: The vertebral arteries have a symmetric diameter. No stenotic lesions are seen. CONCLUSION: Normal examination. Ruben Acuña Jr., MD on October 05, 2016 at 5:53 Board Certified Radiologist. This report was verified electronically.
--- NOTE | 2016-10-05 06:00 | RADRPT ---
EXAM DATE/TIME: 10/05/2016 03:13 [facility] COMPARISON: No previous studies available for comparison. INDICATIONS : Aneurysm/ Head injury with altered mental status. IV CONTRAST: 75 cc Omnipaque 350 (iohexol) IV RADIATION DOSE: 27.27 CTDIvol (mGy) ; Combined studies Dose Comments: MEDICAL HISTORY : unknown SURGICAL HISTORY : unknown ENCOUNTER: Initial ACUITY: 1 day PAIN SCALE: Non-responsive LOCATION: cranial TECHNIQUE: Volumetric scanning was performed using a multi-row detector CT scanner. The data was post processed with a variety of visualization algorithms including full volume maximum intensity projection, multi -planar sliding thin slab reformation, curved planar reformation, and surface rendering techniques. Using automated exposure control and adjustment of the mA and/or kV according to patient size, radiat ion dose was kept as low as reasonably achievable to obtain optimal diagnostic quality images. FINDINGS: There is excellent visualization of the major intracranial arteries out to the second-order branch ve ssels. A 3 x 3 mm saccular aneurysm is seen arising from the basilar tip. It projects cephalad. It is relatively broad-based in nature. No other aneurysms. No vasospasm. CONCLUSION: 3 mm basilar tip aneurysm. Ruben Acuña Jr., MD on October 05, 2016 at 5:55 Board Certified Radiologist. This report was verified electronically.
[2016-10-05] MEDS: ARTIFICIAL TEARS OPTH SOLN 15 ML BTL EACH EYE SCH ×3 (09:00→18:00)
[2016-10-05] MEDS: levETIRAcetam INJ 500 MG in SODIUM CHLORIDE 0.9% INJ 100 ML IV SCH ×2 (09:06→20:13)
--- NOTE | 2016-10-05 09:07 | EKG ---
Date Performed: 10/05/2016 Time Performed: 02:30:56 PTAGE: 89 years EKG: Sinus arrhythmia. Abnormal ECG NO PREVIOUS TRACING DOCTOR: Mynor Llanos Interpretating Date/Time 01/09/2017 13:23:16
--- NOTE | 2016-10-05 09:07 | EKG ---
Date Performed: 10/05/2016 Time Performed: 02:30:56 PTAGE: 89 years EKG: Sinus arrhythmia. Abnormal ECG NO PREVIOUS TRACING DOCTOR: Mynor Llanos Interpretating Date/Time 01/09/2017 13:23:16
--- NOTE | 2016-10-05 09:07 | EKG ---
Date Performed: 10/05/2016 Time Performed: 02:30:56 PTAGE: 89 years EKG: Sinus arrhythmia. Abnormal ECG NO PREVIOUS TRACING DOCTOR: Mynor Llanos Interpretating Date/Time 01/09/2017 13:23:16
[2016-10-05] MEDS: PANTOPRAZOLE SODIUM 40 MG VIAL IV SCH (09:14)
[2016-10-05] MEDS: PRAVASTATIN SOD 40 MG TAB PO SCH (09:14)
[2016-10-05] MEDS ORDERED: VERAPAMIL HCL 5 MG/2 ML VIAL ONE (13:04)
[2016-10-05] MEDS ORDERED: IODIXANOL 320 MG/ML 50 ML VIAL (for RAD SPEC) I-ARTERIAL ONE (16:18)
--- NOTE | 2016-10-05 16:34 | PD.RAD ---
Post Procedure Progress Note Pre Procedure Diagnosis: (1) Intracranial hemorrhage Post Procedure Diagnosis: (1) Intracranial hemorrhage Procedure Date: Oct 05, 2016 Supervising Radiologist: Gume Mckeon Proceduralist/Assist: Denia Mccracken, RT(R), Marta Connell RT(R)(CV), Laurence Shaa RT(R) Anesthesia: General Plan of Activity Patient to Unit: Critical Care Patient Condition: Poor See PACS Report for procedural detail/treatment Vascular-Arterial Procedure Procedure 1 Procedure Site: Cerebral (right vertebral) Procedure(s): Angiogram, Embolization (Basilar tip aneurysm) Access Access Site(s): Right Femoral Artery Closure Site(s): Right vascular closure device (PerClose) Findings: 3.2mm Basilar tip aneurysm. Coil embolization with 3 coils (1, 3mm framing and 2, 2mm fill) Gume Mckeon MD Oct 05, 2016 16:34
--- NOTE | 2016-10-05 19:18 | PD.OP ---
Operative Report Date of Surgery: Oct 05, 2016 Preoperative Diagnosis: (1) Hypertension (2) 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 1. Subarachnoid hemorrhage 2. Basilar tip aneurysm 3. 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 Subarachnoid hemorrhage 2. Basilar tip aneurysm 3. Hypertension Procedure: Right frontal twist drill for ventriculostomy placement Anesthesia: Intravenous sedation with propofol. 1% Xylocaine epinephrine local anesthetic Surgeon: Gino Mace Ct Mri Technologist(s): None Operation and Findings: Findings: Opening pressure 12 mm water. Procedure in detail: The procedure was performed in the surgical intensive care unit. The procedure, risks, and possible complications were fully explained to the patient's family prior to the procedure and consent obtained and witnessed. Appropriate timeout procedure was performed with all personnel present and in agreement The patient was placed in supine position with the head and neck in neutral position and the head of the bed elevated approximately 20. The right frontal region was shaved with clippers and sterilely prepped and draped. One percent Xylocaine without epinephrine was used for local infiltration over the small incision site which was made approximately 9-10 cm above the right supraorbital rim, approximately 3-1/2 to 4 cm lateral to the midline, in the mid pupillary line just anterior to the coronal suture. The hand drill was used to make a single twist drill opening in the cranium and the dura was perforated with the trocar. The Codman Bactiseal ventriculostomy catheter was advanced to a depth of 6-7 cm intracranial in a single pass with good return of moderately blood-tinged spinal fluid. Opening pressure was 12 centimeter water The catheter was tunneled to the posterior frontal region with a trocar and secured to the skin with 3-0 nylon suture which was also used to close the small incision. A sterile bactericidal dressing was applied The catheter was connected to the drainage reservoir, and there was good drainage of fluid. The patient's neurologic exam remained stable following the procedure No specimen was sent There was no significant bleeding Gino Mace MD Oct 05, 2016 19:17
[2016-10-05] MEDS: fentaNYL 2,500 MCG/NS 250 ML IV SCH (22:23)
[2016-10-06] VITALS (18 sets, daily range): BP systolic 120–158; BP diastolic 62–86; PULSE 65–75; RESP 18; TEMP 98–99.9; O2SAT 92–100
[2016-10-06] MEDS: PROPOFOL 1000 MG/100 ML INJ 100 ML IV SCH ×7 (00:53→20:34)
[2016-10-06] MEDS: SODIUM CHLOR 0.9% 1000 ML INJ 1,000 ML IV SCH ×2 (02:21→12:26)
[2016-10-06] MEDS: CHLORHEXIDINE GLUCONATE 2 % 1 PACK (2 CLOTHS) TOP SCH (03:20)
[2016-10-06] MEDS: DOCUSATE SODIUM 100 MG CAP G-TUBE SCH ×2 (03:35→16:06)
[2016-10-06] MEDS: niMODipine 30 MG CAP PO SCH ×5 (03:35→20:14)
[2016-10-06 04:02] LABS: AUTOMATED NEUTROPHIL # 11.5 TH/MM3 (1.8-7.7); BASOPHIL # 0.1 TH/MM3 (0-0.2); BASOPHIL % 0.4 % (0.0-2.0); EOSINOPHIL # 0.1 TH/MM3 (0-0.4); EOSINOPHIL % 0.4 % (0.0-4.0); HEMATOCRIT 34.6 % (39.0-51.0); HEMOGLOBIN 11.7 GM/DL (13.0-17.0); LYMPH % 8.1 % (9.0-44.0); LYMPHOCYTE # 1.1 TH/MM3 (1.0-4.8); MEAN CELL VOLUME 89.6 FL (80.0-100.0); MEAN CORPUSCULAR HEMOGLOBIN 30.3 PG (27.0-34.0); MEAN CORPUSCULAR HGB CONC 33.9 % (32.0-36.0); MEAN PLATELET VOLUME 9.3 FL (7.0-11.0); MONO % 8.5 % (0.0-8.0); MONOCYTE # 1.2 TH/MM3 (0-0.9); NEUT % 82.6 % (16.0-70.0); PLATELET COUNT 162 TH/MM3 (150-450); RED BLOOD COUNT 3.86 MIL/MM3 (4.50-5.90); RED CELL DISTRIBUTION WIDTH 13.4 % (11.6-17.2); WHITE BLOOD COUNT 13.9 TH/MM3 (4.0-11.0)
[2016-10-06] MEDS ORDERED: NOREPINEPHRINE 4 MG/4 ML AMP ONE ×2 (04:03→17:30)
[2016-10-06 04:14] LABS: PROTHROMBIN TIME - PATIENT 10.9 SEC (9.8-11.6)
[2016-10-06 04:37] LABS: BICARBONATE 25.1 MEQ/L (21.0-32.0); CALCIUM 7.4 MG/DL (8.5-10.1); CALCIUM-PROTEIN CORRECTED 7.9 MG/DL (8.5-10.1); CREATININE 1.54 MG/DL (0.60-1.30); MAGNESIUM 2.1 MG/DL (1.5-2.5); PHOSPHORUS 3.1 MG/DL (2.5-4.9); TOTAL BILIRUBIN ADULT 0.6 MG/DL (0.2-1.0); TOTAL PROTEIN 6.2 GM/DL (6.4-8.2)
--- NOTE | 2016-10-06 04:51 | RADRPT ---
EXAM DATE/TIME: 10/06/2016 04:28 [facility] COMPARISON: CT BRAIN W/O CONTRAST, October 05, 2016, 1:38. INDICATIONS : Aneurysm , post coiling RADIATION DOSE: 61.23 CTDIvol (mGy) MEDICAL HISTORY : Unobtainable SURGICAL HISTORY : Unobtainable ENCOUNTER: Subsequent ACUITY: 2 days PAIN SCALE: Non-responsive LOCATION: cranial TECHNIQUE: Multiple contiguous axial images were obtained of the head. Using automated exposure control and adj ustment of the mA and/or kV according to patient size, radiation dose was kept as low as reasonably a chievable to obtain optimal diagnostic quality images. FINDINGS: There has been interval coiling of an aneurysm within the suprasellar cistern. Beam hardening artifac t from the aneurysm clips noted. Diffuse subarachnoid hemorrhage again seen and unchanged. New small volume hemorrhage within the atria of the lateral ventricles bilaterally. Right-sided ventriculostomy . Ventricles are normal in size. No herniation observed. Brain parenchyma shows normal attenuation. P aranasal sinuses and mastoid air cells are clear. CONCLUSION: 1. Interval coil embolization of an intracranial aneurysm. 2. Unchanged diffuse subarachnoid hemorrhage. 3. New intraventricular hemorrhage without hydrocephalus. Ruben Acuña Jr., MD on October 06, 2016 at 4:46 Board Certified Radiologist. This report was verified electronically.
[2016-10-06] MEDS ORDERED: SODIUM CHLOR 0.9% 1000 ML INJ 999 ML IV ONE (06:45)
[2016-10-06] MEDS: PANTOPRAZOLE SODIUM 40 MG VIAL IV SCH (08:22)
[2016-10-06] MEDS: levETIRAcetam INJ 500 MG in SODIUM CHLORIDE 0.9% INJ 100 ML IV SCH ×2 (08:23→20:15)
[2016-10-06] MEDS: PRAVASTATIN SOD 40 MG TAB PO SCH (08:23)
[2016-10-06] MEDS: ARTIFICIAL TEARS OPTH SOLN 15 ML BTL EACH EYE SCH ×3 (08:24→17:34)
[2016-10-06] MEDS ORDERED: SODIUM CHLORIDE 0.9% FLUSH 10 ML FLUSH IV FLUSH PRN (12:00)
--- NOTE | 2016-10-06 12:32 | RADRPT ---
EXAM DATE/TIME: 10/06/2016 12:06 [facility] COMPARISON: PELVIS AP ONLY, October 05, 2016, 1:22. INDICATIONS : Post PICC line placement MEDICAL HISTORY : Aneurysm, intracranial. ICH SURGICAL HISTORY : aneurysm coiling ENCOUNTER: Subsequent ACUITY: 2 days PAIN SCORE: Non-responsive. LOCATION: Bilateral chest FINDINGS: The heart is mildly enlarged. There is an ET tube in good position. As PICC which enters from the rig ht. The catheter tip is in good position. The lungs are clear.. The visualized bony structures are intact. CONCLUSION: 1. PICC in good position catheter tip at the level of the right atrium. 2. ET tube and NG tube in good position. Magen Song MD on October 06, 2016 at 12:30 Board Certified Radiologist. This report was verified electronically.
--- NOTE | 2016-10-06 13:54 | HHI.CCPN ---
Subjective Remarks/Hospital Course 51 year old male presents with being brought in as a trauma alert due to a head injury with altered mental status and a diminished GCS. The patient was in the bathroom and fell and hit his head. This was an unwitnessed fall. According to the patient's the patient had been unresponsive for approximately 15 minutes by the time ambulance services arrived. When they arrived the patient was noted to be a GCS of 14, however his mentation would wax and wane and go down as low as 3 again. On arrival to the emergency department he felt extremely nauseated. The CT of the head revealed diffuse subarachnoid bleed. 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 CT head today with some ventricular blood. ICP controlled and patient tolerates lightening of sedation. Volume loaded to maintain SBP > 130s. Opens eyes to voice. Objective Vital Signs Date Time Temp Pulse Resp B/P Pulse Ox O2 Delivery O2 Flow Rate FiO2 10/06/16 12:00 73 10/06/16 12:00 50 10/06/16 12:00 99.3 18 152/72 98 10/05/16 07:00 Mechanical Ventilator 10/05/16 02:00 15.00 Intake and Output 10/05/16 10/05/16 10/06/16 08:00 16:00 00:00 Intake Total 379 ml 1350 ml 787 ml Output Total 1350 ml 1032 ml 692 ml Balance -971 ml 318 ml 95 ml Result Diagram: 10/06/16 0345 10/06/16 0345 Other Results Laboratory Tests Test 10/05/16 17:15 Blood Gas Puncture Site ART LINE Blood Gas Patient Temperature 98.6 Blood Gas HCO3 23 mmol/L (22-26) Blood Gas Base Excess -1.0 mmol/L (-2-2) Blood Gas Oxygen Saturation 98 % (90-100) Arterial Blood pH 7.40 (7.380-7.420) Arterial Blood Partial 38 mmHg (38-42) Pressure CO2 Arterial Blood Partial 235 mmHg Pressure O2 (61-120) Arterial Blood Oxygen Content 17.9 Vol % (12.0-20.0) Arterial Blood 1.1 % (0-4) Carboxyhemoglobin Arterial Blood Methemoglobin 1.0 % (0-2) Blood Gas Hemoglobin 12.7 G/DL (12.0-16.0) Oxygen Delivery Device VENTILATOR Blood Gas Ventilator Setting AC/RR14/VT700/PEEP10 Blood Gas Inspired Oxygen 80 % Imaging Last 24 hours Impressions Pelvis X-Ray 10/05/16109 Signed Impressions: Service Date/Time: Wednesday, October 05, 2016 01:22 - CONCLUSION: Unremarkable examination of the pelvis. Ruben Acuña Jr., MD Head CT 10/05/16109 Signed Impressions: Service Date/Time: Wednesday, October 05, 2016 01:38 - CONCLUSION: Diffuse subarachnoid hemorrhage. Ruben Acuña Jr., MD Chest X-Ray 10/05/16109 Signed Impressions: Service Date/Time: Wednesday, October 05, 2016 01:22 - CONCLUSION: No acute disease. Ruben Acuña Jr., MD Chest CT 10/05/16109 Signed Impressions: Service Date/Time: Wednesday, October 05, 2016 01:46 - CONCLUSION: 1. No acute intrathoracic abnormality. 2. Bibasilar atelectasis. 3. Cardiomegaly. 4. Prior granulomatous disease. Ruben Acuña Jr., MD Cervical Spine CT 10/05/16109 Signed Impressions: Service Date/Time: Wednesday, October 05, 2016 01:40 - CONCLUSION: 1. No fracture or dislocation. 2. Multilevel degenerative changes. Ruben Acuña Jr., MD Abdomen/Pelvis CT 10/05/16109 Signed Impressions: Service Date/Time: Wednesday, October 05, 2016 01:46 - CONCLUSION: 1. No acute trauma. 2. Rounded area of decreased density involving the pancreatic head. I cannot completely exclude pancreatic head mass. At some point MRI of the pancreas is suggested to further evaluate. 3. Focal area of poor enhancement involving the left kidney. This may relate to an area of parenchymal scarring. I cannot completely exclude a mass. This can be further assessed with MRI as well. Ruben Acuña Jr., MD Objective Remarks GENERAL: Calm SKIN: Warm and dry. HEAD: Normocephalic. EYES: Pupils are 3 mm and briskly reactive bilaterally. NECK: Supple, trachea midline. Orally intubated. CARDIOVASCULAR: Regular rate and rhythm without murmurs, gallops, or rubs. No JVD. RESPIRATORY: Breath sounds equal bilaterally.Clear, no wheezes or crackles. GASTROINTESTINAL: Abdomen soft, non-tender, nondistended. BS active. MUSCULOSKELETAL: No cyanosis, or edema. BACK: Nontender without obvious deformity. No CVA tenderness. EXTREMITIES: Nonfocal clubbing cyanosis or edema, well perfused. NEURO: Opens eyes, appwears to respond to voices. A/P Problem List: (1) 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 ICD Code: I60.8 Status: Acute (2) Intracranial hemorrhage ICD Code: I62.9 Status: Acute (3) Hypertension ICD Code: I10 Status: Acute Assessment and Plan Respiratory failure - Intubated for airway protection - No weaning until neurologically improved and stable - ABGs - DuoNeb's as needed for wheezing Subarachnoid bleed - Núñez Veliz 5 Lucas grade 3 - Most likely an aneurysm - CTA - Nimodipine. - Pravachol - SBP goal less than 140 - Daily TCD's - Basilar tip coiled. Hypertension - Nimodipine drip to keep SBP 130 -150 s/p coiling. - Labetalol when necessary. DVT GI prophylaxis - Teds SCDs - No pharmacological prophylaxis due to ICH - Protonix IV Overall impression: Spontaneous subarachnoid hemorrhage, now s/p coiling of aneurysm. Critically ill for the next 5-10 days as we remain vigilant for vasospasm and control hemodynamics. Discussed in detail with his sister at the bedside. Critical Care 40 mins Problem Qualifiers (1) Hypertension: Qualified Code: I10 - Essential hypertension Dave Barragan MD Oct 06, 2016 13:54
[2016-10-06] MEDS: NOREPINEPHRINE INJ 4 MG in SODIUM CHLOR 0.9% 250 ML INJ 250 ML IV SCH ×2 (17:53→21:54)
--- NOTE | 2016-10-06 20:03 | HHI.NSPN ---
History Chief Complaint: intubated and sedated Interval History 51-year-old male admitted with positive subarachnoid hemorrhage. Possible seizure activity. Intubated in the emergency room. 10/05/16: Endovascular coiling Exam Results Vital Signs Date Time Temp Pulse Resp B/P Pulse Ox O2 Delivery O2 Flow Rate FiO2 10/06/16 18:00 70 10/06/16 16:00 50 10/06/16 16:00 99.9 18 120/74 99 10/05/16 07:00 Mechanical Ventilator 10/05/16 02:00 15.00 Intake and Output 10/05/16 10/05/16 10/06/16 08:00 16:00 00:00 Intake Total 379 ml 1350 ml 787 ml Output Total 1350 ml 1032 ml 692 ml Balance -971 ml 318 ml 95 ml Physical Examination Intubated and sedated. Respirations clear to auscultation Cardiac regular without murmur Ventricular catheter in place with drainage of slightly blood-tinged CSF. ICPs less than 10 Pupils 3 mm nonreactive. Mild corneal responses Minimal oculocephalic Minimal flexion deep pain upper extremities Lab, Micro, Other Results 10/06/16 CT scan head images reviewed by the undersigned. Agree with findings as noted below: Head CT 10/06/16 0600 Signed Impressions: Service Date/Time: October 04:28 - CONCLUSION: 1. Interval coil embolization of an intracranial aneurysm. 2. Unchanged diffuse subarachnoid hemorrhage. 3. New intraventricular hemorrhage without hydrocephalus. Ruben Acuña Jr., MD Chest X-Ray 10/06/16 0000 Signed Impressions: Service Date/Time: October 12:06 - CONCLUSION: 1. PICC in good position catheter tip at the level of the right atrium. 2. ET tube and NG tube in good position. Magen Song MD Medical Decision Making Impression and Plan Impression: 1. Stable neurologic status following endovascular coiling for subarachnoid hemorrhage-ruptured basilar tip aneurysm. Plan: Patient on norepinephrine for maintenance of systolic blood pressure 130-150 Monitor for vasospasm-transcranial Doppler with follow-up CT angiogram as needed Continuing Keppra due to probable seizure activity reported. Continue ventriculostomy catheter Non- chemical DVT prophylaxis Ulcer prophylaxis Okay to begin weaning sedation from neurosurgery standpoint Gino Mace MD Oct 06, 2016 20:03
[2016-10-07] VITALS (19 sets, daily range): BP systolic 136–148; BP diastolic 62–70; PULSE 62–74; RESP 18–20; TEMP 98.7–100.3; O2SAT 95–100
[2016-10-07] MEDS: niMODipine 30 MG CAP PO SCH ×6 (00:32→20:32)
[2016-10-07] MEDS: fentaNYL 2,500 MCG/NS 250 ML IV SCH (00:32)
[2016-10-07] MEDS: PROPOFOL 1000 MG/100 ML INJ 100 ML IV SCH ×3 (00:32→20:34)
[2016-10-07] MEDS: SODIUM CHLOR 0.9% 1000 ML INJ 1,000 ML IV SCH ×2 (02:11→08:36)
[2016-10-07] MEDS: CHLORHEXIDINE GLUCONATE 2 % 1 PACK (2 CLOTHS) TOP SCH (04:00)
[2016-10-07] MEDS: DOCUSATE SODIUM 100 MG CAP G-TUBE SCH ×2 (04:11→15:57)
[2016-10-07 05:19] LABS: HEMATOCRIT 32.4 % (39.0-51.0); HEMOGLOBIN 10.5 GM/DL (13.0-17.0); MEAN CELL VOLUME 90.9 FL (80.0-100.0); MEAN CORPUSCULAR HEMOGLOBIN 29.5 PG (27.0-34.0); MEAN CORPUSCULAR HGB CONC 32.5 % (32.0-36.0); MEAN PLATELET VOLUME 9.6 FL (7.0-11.0); PLATELET COUNT 144 TH/MM3 (150-450); RED BLOOD COUNT 3.56 MIL/MM3 (4.50-5.90); RED CELL DISTRIBUTION WIDTH 13.1 % (11.6-17.2); WHITE BLOOD COUNT 12.5 TH/MM3 (4.0-11.0)
[2016-10-07 05:42] LABS: BICARBONATE 22.7 MEQ/L (21.0-32.0); CALCIUM 7.5 MG/DL (8.5-10.1); CREATININE 1.25 MG/DL (0.60-1.30); MAGNESIUM 2.2 MG/DL (1.5-2.5); PHOSPHORUS 1.8 MG/DL (2.5-4.9)
--- NOTE | 2016-10-07 07:55 | HHI.CCPN ---
Subjective Remarks/Hospital Course 51 year old male presents with being brought in as a trauma alert due to a head injury with altered mental status and a diminished GCS. The patient was in the bathroom and fell and hit his head. This was an unwitnessed fall. According to the patient's the patient had been unresponsive for approximately 15 minutes by the time ambulance services arrived. When they arrived the patient was noted to be a GCS of 14, however his mentation would wax and wane and go down as low as 3 again. On arrival to the emergency department he felt extremely nauseated. The CT of the head revealed diffuse subarachnoid bleed. 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 CT head today with some ventricular blood. ICP controlled and patient tolerates lightening of sedation. Volume loaded to maintain SBP > 130s. Opens eyes to voice. 10/07: BP controlled. TCDs to be done today. Objective Vital Signs Date Time Temp Pulse Resp B/P Pulse Ox O2 Delivery O2 Flow Rate FiO2 10/07/16 06:00 64 10/07/16 04:31 97 45 10/07/16 04:00 99.1 18 136/70 10/05/16 07:00 Mechanical Ventilator 10/05/16 02:00 15.00 Intake and Output 10/06/16 10/06/16 10/07/16 08:00 16:00 00:00 Intake Total 987 ml 1839 ml 1536 ml Output Total 380 ml 518 ml 462 ml Balance 607 ml 1321 ml 1074 ml Result Diagram: 10/07/16 0454 10/07/16 0454 Imaging Last 24 hours Impressions Pelvis X-Ray 10/05/16109 Signed Impressions: Service Date/Time: Wednesday, October 05, 2016 01:22 - CONCLUSION: Unremarkable examination of the pelvis. Ruben Acuña Jr., MD Head CT 10/05/16109 Signed Impressions: Service Date/Time: Wednesday, October 05, 2016 01:38 - CONCLUSION: Diffuse subarachnoid hemorrhage. Ruben Acuña Jr., MD Chest X-Ray 10/05/16109 Signed Impressions: Service Date/Time: Wednesday, October 05, 2016 01:22 - CONCLUSION: No acute disease. Ruben Acuña Jr., MD Chest CT 10/05/16109 Signed Impressions: Service Date/Time: Wednesday, October 05, 2016 01:46 - CONCLUSION: 1. No acute intrathoracic abnormality. 2. Bibasilar atelectasis. 3. Cardiomegaly. 4. Prior granulomatous disease. Ruben Acuña Jr., MD Cervical Spine CT 10/05/16109 Signed Impressions: Service Date/Time: Wednesday, October 05, 2016 01:40 - CONCLUSION: 1. No fracture or dislocation. 2. Multilevel degenerative changes. Ruben Acuña Jr., MD Abdomen/Pelvis CT 10/05/16109 Signed Impressions: Service Date/Time: Wednesday, October 05, 2016 01:46 - CONCLUSION: 1. No acute trauma. 2. Rounded area of decreased density involving the pancreatic head. I cannot completely exclude pancreatic head mass. At some point MRI of the pancreas is suggested to further evaluate. 3. Focal area of poor enhancement involving the left kidney. This may relate to an area of parenchymal scarring. I cannot completely exclude a mass. This can be further assessed with MRI as well. Ruben Acuña Jr., MD Objective Remarks GENERAL: Calm SKIN: Warm and dry. HEAD: Normocephalic. EYES: Pupils are 3 mm and briskly reactive bilaterally. NECK: Supple, trachea midline. Orally intubated. CARDIOVASCULAR: Regular rate and rhythm without murmurs, gallops, or rubs. No JVD. RESPIRATORY: Breath sounds equal bilaterally.Clear, no wheezes or crackles. GASTROINTESTINAL: Abdomen soft, non-tender, nondistended. BS active. MUSCULOSKELETAL: No cyanosis, or edema. BACK: Nontender without obvious deformity. No CVA tenderness. EXTREMITIES: Nonfocal clubbing cyanosis or edema, well perfused. NEURO: Opens eyes, appwears to respond to voices. A/P Problem List: (1) 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 ICD Code: I60.8 Status: Acute (2) Intracranial hemorrhage ICD Code: I62.9 Status: Acute (3) Hypertension ICD Code: I10 Status: Acute Assessment and Plan Respiratory failure - Intubated for airway protection - No weaning until neurologically improved and stable - ABGs - DuoNeb's as needed for wheezing Subarachnoid bleed - Núñez Veliz 5 Lucas grade 3 - Most likely an aneurysm - CTA - Nimodipine. - Pravachol - SBP goal less than 140 - Daily TCD's - Basilar tip coiled. Hypertension - Nimodipine drip to keep SBP 130 -150 s/p coiling. - Labetalol when necessary. DVT GI prophylaxis - Teds SCDs - No pharmacological prophylaxis due to ICH - Protonix IV Overall impression: Spontaneous subarachnoid hemorrhage, now s/p coiling of aneurysm. Critically ill for the next 5-10 days as we remain vigilant for vasospasm and control hemodynamics. Critical Care 36 mins Problem Qualifiers (1) Hypertension: Qualified Code: I10 - Essential hypertension Dave Barragan MD Oct 07, 2016 07:55
[2016-10-07] MEDS ORDERED: MAGNESIUM OXIDE 400 MG TAB PO PRN (08:00)
[2016-10-07] MEDS ORDERED: SODIUM PHOSPHATE INJ 30 MMOL in SODIUM CHLOR 0.9% 250 ML INJ 240 ML IV PRN (08:00)
[2016-10-07] MEDS ORDERED: POTASSIUM CHLOR 40 MEQ PREMIX 100 ML IV PRN ×2 (08:00)
[2016-10-07] MEDS ORDERED: MAGNESIUM SULFATE INJ 4 GM in SODIUM CHLORIDE 0.9% INJ 92 ML IV PRN (08:00)
[2016-10-07] MEDS ORDERED: MAGNESIUM SULFATE INJ 2 GM in SODIUM CHLORIDE 0.9% INJ 96 ML IV PRN (08:00)
[2016-10-07] MEDS ORDERED: POTASSIUM PHOSPHATE INJ 30 MMOL in SODIUM CHLOR 0.9% 250 ML INJ 250 ML IV PRN (08:00)
[2016-10-07] MEDS ORDERED: POTASSIUM CHLOR 20 MEQ PREMIX 100 ML IV PRN (08:00)
[2016-10-07] MEDS ORDERED: POTASSIUM PHOSPHATE MONOBASIC 500 MG TAB PO PRN (08:00)
[2016-10-07] MEDS ORDERED: POTASSIUM PHOSPHATE MONOBASIC 500 MG TAB PO/TUBE PRN (08:00)
[2016-10-07] MEDS: PANTOPRAZOLE SODIUM 40 MG VIAL IV SCH (08:34)
[2016-10-07] MEDS: ARTIFICIAL TEARS OPTH SOLN 15 ML BTL EACH EYE SCH ×3 (08:34→18:04)
[2016-10-07] MEDS: PRAVASTATIN SOD 40 MG TAB PO SCH (08:34)
[2016-10-07] MEDS: levETIRAcetam INJ 500 MG in SODIUM CHLORIDE 0.9% INJ 100 ML IV SCH ×2 (08:34→20:32)
[2016-10-07] MEDS: SODIUM CHLORIDE 0.9% FLUSH 10 ML FLUSH IV FLUSH SCH (08:35)
--- NOTE | 2016-10-07 09:46 | RADRPT ---
EXAM DATE/TIME: 10/07/2016 07:38 [facility] COMPARISON: TRANSCATH IV OCCLUSSION, CEREBRAL ANEURYSM, RIGHT, October 05, 2016, 11:19. INDICATIONS : Subarachnoid hemorrhage. MEDICAL HISTORY : Hypertension. Pancreatitis. Chronic headaches. SURGICAL HISTORY : None. ENCOUNTER: Initial ACUITY: 1 day PAIN SCORE: Nonresponsive. LOCATION: Bilateral cranial Current Exam: Oct 07, 2016 [place] Ratio: Right: 2.0 Left: 2.7 [place] Ratio: Right: 1.9 Left: 2.5 FINDINGS: Examination performed at bedside. Real-time ultrasound with the assistance of color and spectral Dop pler was utilized to evaluate the intracerebral circulation. Time-averaged maximal velocities are ca lculated in cm/s. There is good visualization of the intercranial circulation. Systolic colostomies are within normal l imits. Velocity ratios are within normal limits. CONCLUSION: 1. No definite findings to indicate vasospasm identified. Peak systolic velocity and velocity ratios are within normal limits. Magen Song MD on October 07, 2016 at 9:40 Board Certified Radiologist. This report was verified electronically.
--- NOTE | 2016-10-07 10:54 | RADRPT ---
EXAM DATE/TIME: 10/05/2016 11:19 [facility] COMPARISON: CT BRAIN W/O CONTRAST, October 06, 2016, 4:28. INDICATIONS : Intercranial hemorhage. MEDICAL HISTORY : 1.HTN 2. CVA 5 yrs aog 3. Subarachnoid bleed SURGICAL HISTORY : 1.none ENCOUNTER: Initial ACUITY: 1 day PAIN SCORE: Nonresponsive. FLUORO TIME: 37.8 minutes IMAGE SERIES: 20 ACCESS SITE: Right Femoral artery CONTRAST: 120 cc Visipaque (iodixanol) MEDICATION(S): 1.) 7000 units Heparin IV 2.) 2 g cefazolin (Ancef) IV Intra-procedural antibiotics were given as prescribed above. DEVICE(S): 1.) Right common femoral artery Perclose 2.) Right Basilar artery 3mm x5 cm embolic coil(s) 3.) Right Basilar artery 2mm x 2 cm ( x2) embolic coil(s) Anesthesia and pain control was provided by the Anesthesia department. PROCEDURE : 1. Ultrasound-guided puncture of the access site. 2. Angiography of the access site prior to closure device. 3. Conscious sedation with continuous EKG and Oximetry monitoring. 4. Percutaneous closure of the access site. 5. Angiography of the basilar tip aneurysm 6. Coil embolization of the basilar tip aneurysm The risks, benefits and alternatives to the procedure were explained and verbal and written consent w as obtained. The site was prepped in sterile fashion. Full sterile technique was used, including ca p, mask, sterile gloves and gown and a large sterile sheet. Hand hygiene and 2% chlorhexidine and/or betadine/alcohol prep was utilized per protocol for cutaneous antisepsis. The skin and subcutaneous tissues were infiltrated with local anesthetic solution. With ultrasound and fluoroscopic guidance the selected artery was punctured and a vascular sheath was placed. Angiography of the common femoral artery was performed for evaluation prior to percutaneous closure device placement. JB2 catheter was used to select the brachiocephalic artery. This was subsequently used to access the right subclavian. Position was confirmed the positive contrast. The catheter and wire were advanced u p the subclavian and the wire exchanged for a stiff exchange glide. Over the glide, a 90 cm, 6 Vietnamese Rabbe sheath was advanced into the subclavian. A hockey-stick catheter and wire were then advanced i nto the right vertebral artery. The Rabbe sheath was then advanced into the ostium of the right verte bral and the side port of the sheath connected to a verapamil pressure drip. Over the stiff Glidewire, a Navien guide catheter was advanced into the vertebral artery as it exits the vertebral canal. The guide catheter was also connected to a pressure sheath infusion. Through the guide catheter, a straight Prowler catheter and agility wire were then manipulated through the verte bral into the 3 mm basilar tip aneurysm. Aneurysmal gram confirmed position. First coil deployment was a 3 mm framing coil. Once successfully deployed, a 2 mm x 2 cm extra soft c oil was deployed successfully. Contrast injection confirmed appropriate retention within the aneurysm sac. A third 2 mm x 1.5 cm coil was advanced out one of the loops appear to advanced through the ane urysm dome and was withdrawn. Contrast injection did show a small amount of subarachnoid bleed. Immed iately, an additional 2 mm x 2 cm extra soft coil was deployed successfully. Repeat angiogram showed cessation of the previous subarachnoid hemorrhage. Hemostasis was obtained with the prescribed medicated closure device. Conscious sedation was perform ed with the prescribed dosages and duration as above in the presence of an independent trained radiol ogy nurse to assist in the monitoring of the patient. EKG and oximetry remained stable throughout th e procedure. CONCLUSION: Successful coil embolization of a 3 mm basilar tip aneurysm as detailed above. Gume Mckeon MD on October 07, 2016 at 8:52 Board Certified Radiologist. This report was verified electronically.
[2016-10-07] MEDS: niCARdipine INJ 25 MG in SODIUM CHLOR 0.9% 250 ML INJ 250 ML IV SCH ×2 (13:31→20:34)
--- NOTE | 2016-10-07 20:49 | HHI.NSPN ---
History Chief Complaint: intubated and sedated Interval History 51-year-old male admitted with positive subarachnoid hemorrhage. Possible seizure activity. Intubated in the emergency room. 10/05/16: Endovascular coiling 10/07/16 rinse intubated and sedated. Ventriculostomy in place Exam Results Vital Signs Date Time Temp Pulse Resp B/P Pulse Ox O2 Delivery O2 Flow Rate FiO2 10/07/16 20:01 98 40 10/07/16 18:00 74 10/07/16 16:00 100.2 20 144/66 10/05/16 07:00 Mechanical Ventilator 10/05/16 02:00 15.00 Intake and Output 10/06/16 10/06/16 10/07/16 08:00 16:00 00:00 Intake Total 987 ml 1839 ml 1536 ml Output Total 380 ml 518 ml 462 ml Balance 607 ml 1321 ml 1074 ml Physical Examination Intubated and sedated. Pupils 3 mm nonreactive. Minimal corneal and oculocephalic response Minimal movement of her extremities to pain Ventriculostomy in good position with moderate blood tinged CSF output Lab, Micro, Other Results Transcranial Doppler Study Complete 10/07/16 0000 Signed Impressions: Service Date/Time: Friday, October 07, 2016 07:38 - CONCLUSION: 1. No definite findings to indicate vasospasm identified. Peak systolic velocity and velocity ratios are within normal limits. Magen Song MD Head CT 10/06/16 0600 Signed Impressions: Service Date/Time: October 04:28 - CONCLUSION: 1. Interval coil embolization of an intracranial aneurysm. 2. Unchanged diffuse subarachnoid hemorrhage. 3. New intraventricular hemorrhage without hydrocephalus. Ruben Acuña Jr., MD Chest X-Ray 10/06/16 0000 Signed Impressions: Service Date/Time: October 12:06 - CONCLUSION: 1. PICC in good position catheter tip at the level of the right atrium. 2. ET tube and NG tube in good position. Magen Song MD Medical Decision Making Impression and Plan Impression: 1. Stable neurologic status following endovascular coiling for subarachnoid hemorrhage-ruptured basilar tip aneurysm.. 10/07/16 Transcranial Doppler negative for definite vasospasm Plan: maintenance of systolic blood pressure 130-150 Monitor for vasospasm-transcranial Doppler with follow-up CT angiogram as needed Continuing Keppra due to probable seizure activity reported. Continue ventriculostomy catheter Non- chemical DVT prophylaxis Ulcer prophylaxis Okay to begin weaning sedation from neurosurgery standpoint Discussed with family room today Gino Mace MD Oct 07, 2016 20:49
[2016-10-08] VITALS (19 sets, daily range): BP systolic 132–157; BP diastolic 60–80; PULSE 64–82; RESP 20–24; TEMP 98.8–100.4; O2SAT 94–99
[2016-10-08] MEDS: niMODipine 30 MG CAP PO SCH ×7 (00:11→23:29)
[2016-10-08] MEDS: SODIUM CHLOR 0.9% 1000 ML INJ 1,000 ML IV SCH ×3 (02:01→23:30)
[2016-10-08] MEDS: DOCUSATE SODIUM 100 MG CAP G-TUBE SCH ×2 (03:44→16:10)
[2016-10-08] MEDS: CHLORHEXIDINE GLUCONATE 2 % 1 PACK (2 CLOTHS) TOP SCH (03:45)
[2016-10-08] MEDS: PROPOFOL 1000 MG/100 ML INJ 100 ML IV SCH ×7 (03:46→23:30)
[2016-10-08] MEDS: fentaNYL 2,500 MCG/NS 250 ML IV SCH ×2 (03:46→19:00)
[2016-10-08 04:48] LABS: BICARBONATE 22.9 MEQ/L (21.0-32.0); CALCIUM 7.9 MG/DL (8.5-10.1); CREATININE 0.94 MG/DL (0.60-1.30)
[2016-10-08 05:07] LABS: HEMATOCRIT 31.2 % (39.0-51.0); HEMOGLOBIN 10.5 GM/DL (13.0-17.0); MEAN CELL VOLUME 90.2 FL (80.0-100.0); MEAN CORPUSCULAR HEMOGLOBIN 30.5 PG (27.0-34.0); MEAN CORPUSCULAR HGB CONC 33.8 % (32.0-36.0); PLATELET COUNT 128 TH/MM3 (150-450); RED BLOOD COUNT 3.46 MIL/MM3 (4.50-5.90); RED CELL DISTRIBUTION WIDTH 13.3 % (11.6-17.2); WHITE BLOOD COUNT 11.4 TH/MM3 (4.0-11.0)
[2016-10-08] MEDS: niCARdipine INJ 25 MG in SODIUM CHLOR 0.9% 250 ML INJ 250 ML IV SCH ×7 (05:45→21:27)
[2016-10-08] MEDS: POTASSIUM CHLOR 20 MEQ PREMIX 100 ML IV PRN ×2 (06:24→08:08)
--- NOTE | 2016-10-08 07:43 | HHI.CCPN ---
Subjective Remarks/Hospital Course 51 year old male presents with being brought in as a trauma alert due to a head injury with altered mental status and a diminished GCS. The patient was in the bathroom and fell and hit his head. This was an unwitnessed fall. According to the patient's the patient had been unresponsive for approximately 15 minutes by the time ambulance services arrived. When they arrived the patient was noted to be a GCS of 14, however his mentation would wax and wane and go down as low as 3 again. On arrival to the emergency department he felt extremely nauseated. The CT of the head revealed diffuse subarachnoid bleed. 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 CT head today with some ventricular blood. ICP controlled and patient tolerates lightening of sedation. Volume loaded to maintain SBP > 130s. Opens eyes to voice. 10/07: BP controlled. TCDs to be done today. 10/08: BP control good. Well hydrated. No TCD evidence of spasm. Objective Vital Signs Date Time Temp Pulse Resp B/P Pulse Ox O2 Delivery O2 Flow Rate FiO2 10/08/16 07:37 95 40 10/08/16 06:00 76 10/08/16 04:00 99.0 20 157/69 10/05/16 07:00 Mechanical Ventilator 10/05/16 02:00 15.00 Intake and Output 10/07/16 10/07/16 10/08/16 08:00 16:00 00:00 Intake Total 1407 ml 1374 ml 1569 ml Output Total 527 ml 568 ml 619 ml Balance 880 ml 806 ml 950 ml Result Diagram: 10/08/16 0404 10/08/16 0404 Imaging Last 24 hours Impressions Pelvis X-Ray 10/05/16109 Signed Impressions: Service Date/Time: Wednesday, October 05, 2016 01:22 - CONCLUSION: Unremarkable examination of the pelvis. Ruben Acuña Jr., MD Head CT 10/05/16109 Signed Impressions: Service Date/Time: Wednesday, October 05, 2016 01:38 - CONCLUSION: Diffuse subarachnoid hemorrhage. Ruben Acuña Jr., MD Chest X-Ray 10/05/16109 Signed Impressions: Service Date/Time: Wednesday, October 05, 2016 01:22 - CONCLUSION: No acute disease. Ruben Acuña Jr., MD Chest CT 10/05/16109 Signed Impressions: Service Date/Time: Wednesday, October 05, 2016 01:46 - CONCLUSION: 1. No acute intrathoracic abnormality. 2. Bibasilar atelectasis. 3. Cardiomegaly. 4. Prior granulomatous disease. Ruben Acuañ Jr., MD Cervical Spine CT 10/05/16109 Signed Impressions: Service Date/Time: Wednesday, October 05, 2016 01:40 - CONCLUSION: 1. No fracture or dislocation. 2. Multilevel degenerative changes. Ruben Acuña Jr., MD Abdomen/Pelvis CT 10/05/16109 Signed Impressions: Service Date/Time: Wednesday, October 05, 2016 01:46 - CONCLUSION: 1. No acute trauma. 2. Rounded area of decreased density involving the pancreatic head. I cannot completely exclude pancreatic head mass. At some point MRI of the pancreas is suggested to further evaluate. 3. Focal area of poor enhancement involving the left kidney. This may relate to an area of parenchymal scarring. I cannot completely exclude a mass. This can be further assessed with MRI as well. Ruben Acuña Jr., MD Objective Remarks GENERAL: Calm SKIN: Warm and dry. HEAD: Normocephalic. EYES: Pupils are 2 mm and briskly reactive bilaterally. NECK: Supple, trachea midline. Orally intubated. CARDIOVASCULAR: Regular rate and rhythm without murmurs, gallops, or rubs. No JVD. RESPIRATORY: Breath sounds equal bilaterally.Clear, no wheezes or crackles. GASTROINTESTINAL: Abdomen soft, non-tender, nondistended. BS active. MUSCULOSKELETAL: No cyanosis, or edema. BACK: Nontender without obvious deformity. No CVA tenderness. EXTREMITIES: Nonfocal clubbing cyanosis or edema, well perfused. NEURO: Opens eyes when light. A/P Problem List: (1) 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 ICD Code: I60.8 Status: Acute (2) Intracranial hemorrhage ICD Code: I62.9 Status: Acute (3) Hypertension ICD Code: I10 Status: Acute Assessment and Plan Respiratory failure - Intubated for airway protection - No weaning until neurologically improved and stable - ABGs - DuoNeb's as needed for wheezing Subarachnoid bleed - Núñez Veliz 5 Lucas grade 3 - Most likely an aneurysm - CTA - Nimodipine. - Pravachol - SBP goal less than 140 - Daily TCD's - Basilar tip coiled. Hypertension - Nimodipine drip to keep SBP 130 -150 s/p coiling. - Labetalol when necessary. DVT GI prophylaxis - Teds SCDs - No pharmacological prophylaxis due to ICH - Protonix IV Overall impression: Spontaneous subarachnoid hemorrhage, now s/p coiling of aneurysm. Critically ill for the next 5-10 days as we remain vigilant for vasospasm and control hemodynamics. Critical Care 35 mins Problem Qualifiers (1) Hypertension: Qualified Code: I10 - Essential hypertension Dave Barragan MD Oct 08, 2016 07:43
[2016-10-08] MEDS: levETIRAcetam INJ 500 MG in SODIUM CHLORIDE 0.9% INJ 100 ML IV SCH ×2 (08:07→21:26)
[2016-10-08] MEDS: PRAVASTATIN SOD 40 MG TAB PO SCH (08:07)
[2016-10-08] MEDS: PANTOPRAZOLE SODIUM 40 MG VIAL IV SCH (08:07)
[2016-10-08] MEDS: ARTIFICIAL TEARS OPTH SOLN 15 ML BTL EACH EYE SCH ×3 (08:07→19:57)
[2016-10-08] MEDS: SODIUM CHLORIDE 0.9% FLUSH 10 ML FLUSH IV FLUSH SCH (09:00)
--- NOTE | 2016-10-08 15:04 | RADRPT ---
EXAM DATE/TIME: 10/08/2016 07:48 [facility] COMPARISON: US TRANSCRANIAL DOPPLER COMPLETE, October 07, 2016, 7:38. INDICATIONS : Subarachnoid hemorrhage. MEDICAL HISTORY : Hypertension. Pancreatitis. TIA. SURGICAL HISTORY : Ventriculostomy drain. Endovascular coiling. ENCOUNTER: Subsequent ACUITY: 1 day PAIN SCORE: Nonresponsive. LOCATION: Bilateral cranial Current Exam: Oct 08, 2016 [place] Ratio: Right: 1.7 Left: 2.1 Gregorio Ratio: Right: 1.7 Left: 1.4 Previous Exam: Oct 07, 2016 [place] Ratio: Right: 2.0 Left: 2.7 Gregorio Ratio: Right: 1.9 Left: 2.5 FINDINGS: Examination performed at bedside. Real-time ultrasound with the assistance of color and spectral Dop pler was utilized to evaluate the intracerebral circulation. Time-averaged maximal velocities are ca lculated in cm/s. The velocities remain within normal limits. CONCLUSION: No definite findings to indicate vasospasm. Selwyn Bui MD on October 08, 2016 at 14:57 Board Certified Radiologist. This report was verified electronically.
--- NOTE | 2016-10-08 23:50 | HHI.NSPN ---
History Chief Complaint: intubated and sedated Interval History 51-year-old male admitted with positive subarachnoid hemorrhage. Possible seizure activity. Intubated in the emergency room. 10/05/16: Endovascular coiling 10/07/16 rinse intubated and sedated. Ventriculostomy in place Exam Results Vital Signs Date Time Temp Pulse Resp B/P Pulse Ox O2 Delivery O2 Flow Rate FiO2 10/08/16 19:40 97 40 10/08/16 16:00 100.4 82 24 132/80 10/05/16 07:00 Mechanical Ventilator 10/05/16 02:00 15.00 Intake and Output 10/07/16 10/07/16 10/08/16 08:00 16:00 00:00 Intake Total 1407 ml 1374 ml 1569 ml Output Total 527 ml 568 ml 619 ml Balance 880 ml 806 ml 950 ml Physical Examination Intubated and sedated. Pupils 3 mm nonreactive. Minimal corneal and oculocephalic response Minimal movement of her extremities to pain Ventriculostomy in good position with moderate blood tinged CSF output Lab, Micro, Other Results Last 24 hours Impressions Transcranial Doppler Study Complete 10/08/16 0000 Signed Impressions: Service Date/Time: Saturday, October 08, 2016 07:48 - CONCLUSION: No definite findings to indicate vasospasm. Selwyn Bui MD Laboratory Tests Test 10/08/16 10/08/16 04:04 15:43 White Blood Count 11.4 TH/MM3 Red Blood Count 3.46 MIL/MM3 Hemoglobin 10.5 GM/DL Hematocrit 31.2 % Mean Corpuscular Volume 90.2 FL Mean Corpuscular Hemoglobin 30.5 PG Mean Corpuscular Hemoglobin 33.8 % Concent Red Cell Distribution Width 13.3 % Platelet Count 128 TH/MM3 Mean Platelet Volume 10.0 FL Sodium Level 146 MEQ/L 148 MEQ/L Potassium Level 3.5 MEQ/L Chloride Level 115 MEQ/L Carbon Dioxide Level 22.9 MEQ/L Anion Gap 8 MEQ/L Blood Urea Nitrogen 23 MG/DL Creatinine 0.94 MG/DL Estimat Glomerular Filtration 85 ML/MIN Rate Random Glucose 124 MG/DL Calcium Level 7.9 MG/DL Phosphorus Level 2.3 MG/DL Medical Decision Making Impression and Plan Impression: 1. Stable neurologic status following endovascular coiling for subarachnoid hemorrhage-ruptured basilar tip aneurysm.. 10/07/16 Transcranial Doppler negative for definite vasospasm Plan: maintenance of systolic blood pressure 130-150 Monitor for vasospasm-transcranial Doppler with follow-up CT angiogram as needed Continuing Keppra due to probable seizure activity reported. Continue ventriculostomy catheter Non- chemical DVT prophylaxis Ulcer prophylaxis Okay to begin weaning sedation from neurosurgery standpoint Discussed with family room today Gino Mace MD Oct 08, 2016 23:50
[2016-10-09] VITALS (18 sets, daily range): BP systolic 120–155; BP diastolic 52–93; PULSE 70–87; RESP 20–25; TEMP 99.3–100.8; O2SAT 91–98
[2016-10-09] MEDS: PROPOFOL 1000 MG/100 ML INJ 100 ML IV SCH ×8 (01:49→23:57)
[2016-10-09] MEDS: niCARdipine INJ 25 MG in SODIUM CHLOR 0.9% 250 ML INJ 250 ML IV SCH ×8 (01:50→23:56)
[2016-10-09 04:32] LABS: BICARBONATE 23.2 MEQ/L (21.0-32.0); CALCIUM 7.4 MG/DL (8.5-10.1); CREATININE 1.01 MG/DL (0.60-1.30)
[2016-10-09 04:50] LABS: CALCIUM-PROTEIN CORRECTED 8.2 MG/DL (8.5-10.1); TOTAL PROTEIN 5.6 GM/DL (6.4-8.2)
[2016-10-09] MEDS: niMODipine 30 MG CAP PO SCH ×6 (04:58→23:51)
[2016-10-09] MEDS: CHLORHEXIDINE GLUCONATE 2 % 1 PACK (2 CLOTHS) TOP SCH (04:58)
[2016-10-09] MEDS: DOCUSATE SODIUM 100 MG CAP G-TUBE SCH ×2 (04:58→16:41)
[2016-10-09] MEDS: PANTOPRAZOLE SODIUM 40 MG VIAL IV SCH (08:41)
[2016-10-09] MEDS: ACETAMINOPHEN 325 MG TAB PO PRN (08:42)
[2016-10-09] MEDS: PRAVASTATIN SOD 40 MG TAB PO SCH (08:42)
[2016-10-09] MEDS: SODIUM CHLORIDE 0.9% FLUSH 10 ML FLUSH IV FLUSH SCH (08:43)
[2016-10-09] MEDS: levETIRAcetam INJ 500 MG in SODIUM CHLORIDE 0.9% INJ 100 ML IV SCH ×2 (08:43→20:09)
[2016-10-09] MEDS: ARTIFICIAL TEARS OPTH SOLN 15 ML BTL EACH EYE SCH ×3 (08:43→16:41)
[2016-10-09] MEDS: fentaNYL 2,500 MCG/NS 250 ML IV SCH (09:15)
--- NOTE | 2016-10-09 11:04 | HHI.CCPN ---
Subjective Remarks/Hospital Course 51 year old male presents with being brought in as a trauma alert due to a head injury with altered mental status and a diminished GCS. The patient was in the bathroom and fell and hit his head. This was an unwitnessed fall. According to the patient's the patient had been unresponsive for approximately 15 minutes by the time ambulance services arrived. When they arrived the patient was noted to be a GCS of 14, however his mentation would wax and wane and go down as low as 3 again. On arrival to the emergency department he felt extremely nauseated. The CT of the head revealed diffuse subarachnoid bleed. 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 CT head today with some ventricular blood. ICP controlled and patient tolerates lightening of sedation. Volume loaded to maintain SBP > 130s. Opens eyes to voice. 10/07: BP controlled. TCDs to be done today. 10/08: BP control good. Well hydrated. No TCD evidence of spasm. 10/09: TCD today pending. CPP good. No seizure activity. Remains well hydrated. Objective Vital Signs Date Time Temp Pulse Resp B/P Pulse Ox O2 Delivery O2 Flow Rate FiO2 10/09/16 10:00 70 10/09/16 08:00 100.1 22 145/64 94 10/09/16 08:00 50 10/05/16 07:00 Mechanical Ventilator Intake and Output 10/08/16 10/08/16 10/09/16 08:00 16:00 00:00 Intake Total 1446 ml 2491 ml 2485 ml Output Total 867.0 ml 1276.0 ml 1063 ml Balance 579.0 ml 1215.0 ml 1422 ml Result Diagram: 10/08/16 0404 10/09/16 0340 Imaging Last 24 hours Impressions Pelvis X-Ray 10/05/16109 Signed Impressions: Service Date/Time: Wednesday, October 05, 2016 01:22 - CONCLUSION: Unremarkable examination of the pelvis. Ruben Acuña Jr., MD Head CT 10/05/16109 Signed Impressions: Service Date/Time: Wednesday, October 05, 2016 01:38 - CONCLUSION: Diffuse subarachnoid hemorrhage. Ruben Acuña Jr., MD Chest X-Ray 10/05/16109 Signed Impressions: Service Date/Time: Wednesday, October 05, 2016 01:22 - CONCLUSION: No acute disease. Ruben Acuña Jr., MD Chest CT 10/05/16109 Signed Impressions: Service Date/Time: Wednesday, October 05, 2016 01:46 - CONCLUSION: 1. No acute intrathoracic abnormality. 2. Bibasilar atelectasis. 3. Cardiomegaly. 4. Prior granulomatous disease. Ruben Acuña Jr., MD Cervical Spine CT 10/05/16109 Signed Impressions: Service Date/Time: Wednesday, October 05, 2016 01:40 - CONCLUSION: 1. No fracture or dislocation. 2. Multilevel degenerative changes. Ruben Acuña Jr., MD Abdomen/Pelvis CT 10/05/16109 Signed Impressions: Service Date/Time: Wednesday, October 05, 2016 01:46 - CONCLUSION: 1. No acute trauma. 2. Rounded area of decreased density involving the pancreatic head. I cannot completely exclude pancreatic head mass. At some point MRI of the pancreas is suggested to further evaluate. 3. Focal area of poor enhancement involving the left kidney. This may relate to an area of parenchymal scarring. I cannot completely exclude a mass. This can be further assessed with MRI as well. Ruben Acuña Jr., MD Objective Remarks GENERAL: Calm, sedated. SKIN: Warm and dry. HEAD: Normocephalic. EYES: Pupils are 2 mm and reactive bilaterally. NECK: Supple, trachea midline. Orally intubated. CARDIOVASCULAR: Regular rate and rhythm without murmurs, gallops, or rubs. No JVD. RESPIRATORY: Breath sounds equal bilaterally.Clear, no wheezes or crackles. Good soha excursions. GASTROINTESTINAL: Abdomen soft, non-tender, nondistended. BS active. MUSCULOSKELETAL: No cyanosis, or edema. EXTREMITIES: Nonfocal clubbing cyanosis or edema, well perfused. NEURO: Opens eyes when light. COURTNEY. A/P Problem List: (1) 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 ICD Code: I60.8 Status: Acute (2) Intracranial hemorrhage ICD Code: I62.9 Status: Acute (3) Hypertension ICD Code: I10 Status: Acute Assessment and Plan Respiratory failure - Intubated for airway protection - No weaning until neurologically improved and stable - ABGs - DuoNeb's as needed for wheezing - Follow EtCO2 Subarachnoid bleed - Núñez Veliz 5 Lucas grade 3 - Most likely an aneurysm - CTA - Nimodipine. - Pravachol - SBP goal less than 140 - Daily TCD's - Basilar tip coiled. Hypertension - Nimodipine drip to keep SBP 130 -150 s/p coiling. - Labetalol when necessary. DVT GI prophylaxis - Teds SCDs - No pharmacological prophylaxis due to ICH - Protonix IV Overall impression: Spontaneous subarachnoid hemorrhage, now s/p coiling of basilar tip aneurysm. Critically ill for the next 5-10 days as we remain vigilant for vasospasm and control hemodynamics.BP control acceptable. Critical Care 37 mins Problem Qualifiers (1) Hypertension: Qualified Code: I10 - Essential hypertension Dave Barragan MD Oct 09, 2016 11:04
[2016-10-09] MEDS: SODIUM CHLOR 0.9% 1000 ML INJ 1,000 ML IV SCH (13:45)
--- NOTE | 2016-10-09 16:19 | HHI.NSPN ---
History Chief Complaint: intubated and sedated Interval History 51-year-old male admitted with positive subarachnoid hemorrhage. Possible seizure activity. Intubated in the emergency room. 10/05/16: Endovascular coiling 10/07/16 rinse intubated and sedated. Ventriculostomy in place 10/09/16: Remains intubated and sedated. Increased agitation with attempts at sedation vacation Exam Results Vital Signs Date Time Temp Pulse Resp B/P Pulse Ox O2 Delivery O2 Flow Rate FiO2 10/09/16 14:56 95 50 10/09/16 14:00 74 10/09/16 12:00 99.3 22 149/62 10/05/16 07:00 Mechanical Ventilator Intake and Output 10/08/16 10/08/16 10/09/16 08:00 16:00 00:00 Intake Total 1446 ml 2491 ml 2485 ml Output Total 867.0 ml 1276.0 ml 1063 ml Balance 579.0 ml 1215.0 ml 1422 ml Physical Examination Intubated and sedated. Respirations clear to auscultation Cardiac regular without murmur Abdomen soft, nondistended Ventricular catheter in place with drainage of slightly blood-tinged CSF. ICPs less than 15 Pupils 3 mm nonreactive. Mild corneal responses Minimal oculocephalic Minimal flexion deep pain upper extremities Lab, Micro, Other Results Laboratory Tests Test 10/09/16 03:40 Sodium Level 147 MEQ/L Potassium Level 3.8 MEQ/L Chloride Level 116 MEQ/L Carbon Dioxide Level 23.2 MEQ/L Anion Gap 8 MEQ/L Blood Urea Nitrogen 25 MG/DL Creatinine 1.01 MG/DL Estimat Glomerular Filtration 78 ML/MIN Rate Random Glucose 135 MG/DL Calcium Level 7.4 MG/DL Protein Corrected Calcium 8.2 MG/DL Total Protein 5.6 GM/DL Medical Decision Making Impression and Plan Impression: 1. Stable neurologic status following endovascular coiling for subarachnoid hemorrhage-ruptured basilar tip aneurysm.. 10/07/16 Transcranial Doppler negative for definite vasospasm Plan: maintenance of systolic blood pressure 130-170. Monitor for vasospasm-transcranial Doppler with follow-up CT angiogram as needed Continuing Keppra due to probable seizure activity reported. Continue ventriculostomy catheter Non- chemical DVT prophylaxis Ulcer prophylaxis Okay to begin weaning sedation from neurosurgery standpoint Discussed with nursing staff in the room today. Patient reportedly agitated with increased hypertension with attempts at sedation vacation. We will add additional when necessary antihypertensive to try to improve excessive hypertension with sedation wean Gino Mace MD Oct 09, 2016 16:19
--- NOTE | 2016-10-09 16:38 | RADRPT ---
EXAM DATE/TIME: 10/09/2016 07:59 [facility] COMPARISON: No previous studies available for comparison. INDICATIONS : Subarachnoid hemorrhage. MEDICAL HISTORY : Hypertension. Pancreatitis. TIA. SURGICAL HISTORY : Ventriculostomy drain. Endovascular coiling. ENCOUNTER: [place] ACUITY: 1 day PAIN SCORE: Nonresponsive. LOCATION: Bilateral cranial Current Exam: Oct 09, 2016 [place] Ratio: Right: 1.9 Left: 1.9 Gregorio Ratio: Right: 1.9 Left: 1.5 Previous Exam: Oct 08, 2016 [place] Ratio: Right: 1.7 Left: 2.1 Gregorio Ratio: Right: 1.7 Left: 1.4 FINDINGS: Examination performed at bedside. Real-time ultrasound with the assistance of color and spectral Dop pler was utilized to evaluate the intracerebral circulation. Time-averaged maximal velocities are ca lculated in cm/s. Velocities remain within normal limits. CONCLUSION: 1. No definite findings to indicate vasospasm. No significant change from October 08. Tip Harris MD on October 09, 2016 at 16:33 Board Certified Radiologist. This report was verified electronically.
[2016-10-09] MEDS: cloNIDine HCL 0.1 MG TAB NG PRN (21:04)
[2016-10-10] VITALS (18 sets, daily range): BP systolic 146–162; BP diastolic 58–68; PULSE 85–113; RESP 22–25; TEMP 100–101.8; O2SAT 91–100
[2016-10-10] MEDS: SODIUM CHLOR 0.9% 1000 ML INJ 1,000 ML IV SCH ×2 (00:49→11:49)
[2016-10-10] MEDS: niMODipine 30 MG CAP PO SCH ×6 (03:26→23:21)
[2016-10-10] MEDS: DOCUSATE SODIUM 100 MG CAP G-TUBE SCH ×2 (03:26→15:24)
[2016-10-10] MEDS: PROPOFOL 1000 MG/100 ML INJ 100 ML IV SCH ×2 (03:26→06:48)
[2016-10-10] MEDS: LABETALOL HCL 100 MG/20 ML VIAL IV PUSH PRN ×5 (03:26→21:33)
[2016-10-10] MEDS: CHLORHEXIDINE GLUCONATE 2 % 1 PACK (2 CLOTHS) TOP SCH (04:00)
[2016-10-10 04:45] LABS: BICARBONATE 23.7 MEQ/L (21.0-32.0); CALCIUM 7.3 MG/DL (8.5-10.1); CREATININE 0.93 MG/DL (0.60-1.30)
[2016-10-10 05:02] LABS: CALCIUM-PROTEIN CORRECTED 7.8 MG/DL (8.5-10.1); TOTAL PROTEIN 6.1 GM/DL (6.4-8.2)
[2016-10-10] MEDS: fentaNYL 2,500 MCG/NS 250 ML IV SCH ×2 (05:28→21:33)
[2016-10-10] MEDS: niCARdipine INJ 25 MG in SODIUM CHLOR 0.9% 250 ML INJ 250 ML IV SCH ×8 (05:28→23:21)
[2016-10-10] MEDS: SODIUM CHLORIDE 0.9% FLUSH 10 ML FLUSH IV FLUSH SCH (07:29)
[2016-10-10] MEDS: ARTIFICIAL TEARS OPTH SOLN 15 ML BTL EACH EYE SCH ×3 (09:00→17:35)
[2016-10-10] MEDS: PANTOPRAZOLE SODIUM 40 MG VIAL IV SCH (09:05)
[2016-10-10] MEDS: levETIRAcetam INJ 500 MG in SODIUM CHLORIDE 0.9% INJ 100 ML IV SCH ×2 (09:05→20:14)
[2016-10-10] MEDS: PRAVASTATIN SOD 40 MG TAB PO SCH (09:06)
--- NOTE | 2016-10-10 11:25 | RADRPT ---
EXAM DATE/TIME: 10/10/2016 08:32 [facility] COMPARISON: US TRANSCRANIAL DOPPLER COMPLETE, October 09, 2016, 7:59. INDICATIONS : Subarachnoid hemorrhage. MEDICAL HISTORY : Hypertension. Pancreatitis. TIA. SURGICAL HISTORY : Ventriculostomy drain. Endovascular coiling. ENCOUNTER: Sequela ACUITY: 1 day PAIN SCORE: Nonresponsive. LOCATION: cranial Current Exam: Oct 10, 2016 [place] Ratio: Right: 2.1 Left: 2.1 Gregorio Ratio: Right: 1.5 Left: 1.9 Previous Exam: Oct 09, 2016 [place] Ratio: Right: 1.9 Left: 1.9 Gregorio Ratio: Right: 1.9 Left: 1.5 FINDINGS: Examination performed at bedside. Real-time ultrasound with the assistance of color and spectral Dop pler was utilized to evaluate the intracerebral circulation. Time-averaged maximal velocities are ca lculated in cm/s. Velocities remain within normal limits without findings to indicate vasospasm. CONCLUSION: Velocities remain within normal limits without findings to indicate vasospasm. Tim Montgomery MD on October 10, 2016 at 11:23 Board Certified Radiologist. This report was verified electronically.
--- NOTE | 2016-10-10 11:47 | HHI.CCPN ---
Subjective Remarks/Hospital Course 51 year old male presents with being brought in as a trauma alert due to a head injury with altered mental status and a diminished GCS. The patient was in the bathroom and fell and hit his head. This was an unwitnessed fall. According to the patient's the patient had been unresponsive for approximately 15 minutes by the time ambulance services arrived. When they arrived the patient was noted to be a GCS of 14, however his mentation would wax and wane and go down as low as 3 again. On arrival to the emergency department he felt extremely nauseated. The CT of the head revealed diffuse subarachnoid bleed. 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 CT head today with some ventricular blood. ICP controlled and patient tolerates lightening of sedation. Volume loaded to maintain SBP > 130s. Opens eyes to voice. 10/07: BP controlled. TCDs to be done today. 10/08: BP control good. Well hydrated. No TCD evidence of spasm. 10/09: TCD today pending. CPP good. No seizure activity. Remains well hydrated. 10/10: TCDs no vasospasm. Remains well hydrated, well perfused. Some peripheral edema as expected. Objective Vital Signs Date Time Temp Pulse Resp B/P Pulse Ox O2 Delivery O2 Flow Rate FiO2 10/10/16 10:00 85 10/10/16 08:00 100.7 24 158/59 95 10/10/16 08:00 50 Intake and Output 10/09/16 10/09/16 10/10/16 08:00 16:00 00:00 Intake Total 2073 ml 2254 ml 2807 ml Output Total 716 ml 1057 ml 1157 ml Balance 1357 ml 1197 ml 1650 ml Result Diagram: 10/08/16 0404 10/10/16 0415 Imaging Last 24 hours Impressions Pelvis X-Ray 10/05/16109 Signed Impressions: Service Date/Time: Wednesday, October 05, 2016 01:22 - CONCLUSION: Unremarkable examination of the pelvis. Ruben Acuña Jr., MD Head CT 10/05/16109 Signed Impressions: Service Date/Time: Wednesday, October 05, 2016 01:38 - CONCLUSION: Diffuse subarachnoid hemorrhage. Ruben Acuña Jr., MD Chest X-Ray 10/05/16109 Signed Impressions: Service Date/Time: Wednesday, October 05, 2016 01:22 - CONCLUSION: No acute disease. Ruben Acuña Jr., MD Chest CT 10/05/16109 Signed Impressions: Service Date/Time: Wednesday, October 05, 2016 01:46 - CONCLUSION: 1. No acute intrathoracic abnormality. 2. Bibasilar atelectasis. 3. Cardiomegaly. 4. Prior granulomatous disease. Ruben Acuña Jr., MD Cervical Spine CT 10/05/16109 Signed Impressions: Service Date/Time: Wednesday, October 05, 2016 01:40 - CONCLUSION: 1. No fracture or dislocation. 2. Multilevel degenerative changes. Ruben Acuña Jr., MD Abdomen/Pelvis CT 10/05/16109 Signed Impressions: Service Date/Time: Wednesday, October 05, 2016 01:46 - CONCLUSION: 1. No acute trauma. 2. Rounded area of decreased density involving the pancreatic head. I cannot completely exclude pancreatic head mass. At some point MRI of the pancreas is suggested to further evaluate. 3. Focal area of poor enhancement involving the left kidney. This may relate to an area of parenchymal scarring. I cannot completely exclude a mass. This can be further assessed with MRI as well. Ruben Acuña Jr., MD Objective Remarks GENERAL: Calm, sedated. SKIN: Warm and dry. HEAD: Normocephalic. EYES: Pupils are 2 mm and reactive bilaterally. NECK: Supple, trachea midline. Orally intubated. CARDIOVASCULAR: Regular rate and rhythm without murmurs, gallops, or rubs. No JVD. RESPIRATORY: Breath sounds equal bilaterally.Clear, no wheezes or crackles. Good soha excursions. GASTROINTESTINAL: Abdomen soft, non-tender, nondistended. BS active. MUSCULOSKELETAL: No cyanosis, or edema. EXTREMITIES: Nonfocal clubbing cyanosis or edema, well perfused. NEURO: Opens eyes when light. COURTNEY. A/P Problem List: (1) 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 ICD Code: I60.8 Status: Acute (2) Intracranial hemorrhage ICD Code: I62.9 Status: Acute (3) Hypertension ICD Code: I10 Status: Acute Assessment and Plan Respiratory failure - Intubated for airway protection - No weaning until neurologically improved and stable - ABGs - DuoNeb's as needed for wheezing - Follow EtCO2 Subarachnoid bleed - Núñez Veliz 5 Lucas grade 3 - Most likely an aneurysm - CTA - Nimodipine. - Pravachol - SBP goal less than 140 - Daily TCD's - Basilar tip coiled. Hypertension - Nimodipine drip to keep SBP 130 -150 s/p coiling. - Labetalol when necessary. DVT GI prophylaxis - Teds SCDs - No pharmacological prophylaxis due to ICH - Protonix IV Overall impression: Spontaneous subarachnoid hemorrhage, s/p coiling of basilar tip aneurysm. Critically ill for the next 5-10 days as we remain vigilant for vasospasm and control hemodynamics. BP control acceptable. Some peripheral edema accumulating. Critical Care 34 mins Problem Qualifiers (1) Hypertension: Qualified Code: I10 - Essential hypertension Dave Barragan MD Oct 10, 2016 11:47
[2016-10-10] MEDS: ACETAMINOPHEN 325 MG TAB PO PRN ×2 (11:49→20:13)
[2016-10-10 12:03] LABS: MAGNESIUM 2.4 MG/DL (1.5-2.5); PHOSPHORUS 2.9 MG/DL (2.5-4.9)
[2016-10-10] MEDS: LACTULOSE SYRUP 20 GM/30 ML CUP PO SCH (14:29)
[2016-10-10] MEDS: METOCLOPRAMIDE HCL 10 MG/2 ML VIAL IV PRN (14:29)
[2016-10-10] MEDS: POLYETHYLENE GLYCOL 17 GM PKG PO SCH (14:29)
[2016-10-10] MEDS: METOPROLOL TARTRATE 25 MG TAB PO SCH ×2 (15:24→20:14)
[2016-10-10] MEDS ORDERED: LABETALOL INJ 500 MG in SODIUM CHLORIDE 0.9% INJ 150 ML IV SCH (17:00)
--- NOTE | 2016-10-10 19:59 | HHI.NSPN ---
History Chief Complaint: intubated and sedated Interval History 51-year-old male admitted with positive subarachnoid hemorrhage. Possible seizure activity. Intubated in the emergency room. 10/05/16: Endovascular coiling 10/07/16 rinse intubated and sedated. Ventriculostomy in place 10/09/16: Remains intubated and sedated. Increased agitation with attempts at sedation vacation Exam Results Vital Signs Date Time Temp Pulse Resp B/P Pulse Ox O2 Delivery O2 Flow Rate FiO2 10/10/16 18:00 97 10/10/16 16:00 100.6 24 154/58 100 10/10/16 16:00 50 Intake and Output 10/09/16 10/09/16 10/10/16 08:00 16:00 00:00 Intake Total 2073 ml 2254 ml 2807 ml Output Total 716 ml 1057 ml 1157 ml Balance 1357 ml 1197 ml 1650 ml Physical Examination Intubated and sedated. Respirations clear to auscultation Cardiac regular without murmur Abdomen soft, nondistended Ventricular catheter in place with drainage of slightly blood-tinged CSF. ICPs less than 15 Pupils approximately 3 mm, nonreactive, slightly greater on the right side today. Mild corneal responses Minimal oculocephalic Minimal flexion deep pain upper extremities Lab, Micro, Other Results Laboratory Tests Test 10/10/16 10/10/16 10/10/16 04:15 11:13 16:00 Sodium Level 145 MEQ/L 145 MEQ/L Potassium Level 3.9 MEQ/L 3.9 MEQ/L Chloride Level 111 MEQ/L Carbon Dioxide Level 23.7 MEQ/L Anion Gap 10 MEQ/L Blood Urea Nitrogen 25 MG/DL Creatinine 0.93 MG/DL Estimat Glomerular Filtration 86 ML/MIN Rate Random Glucose 155 MG/DL Calcium Level 7.3 MG/DL Protein Corrected Calcium 7.8 MG/DL Total Protein 6.1 GM/DL Phosphorus Level 2.9 MG/DL Magnesium Level 2.4 MG/DL Medical Decision Making Impression and Plan Impression: 1. Stable neurologic status following endovascular coiling for subarachnoid hemorrhage-ruptured basilar tip aneurysm.. 10/07/16 Transcranial Doppler negative for definite vasospasm Slight pupil change today Plan: maintenance of systolic blood pressure 130-170. Monitor for vasospasm-transcranial Doppler with follow-up CT angiogram to confirm TCD results in a.m. in view of slight pupil change and generalized decreased level of consciousness despite decreased sedation. Continuing Keppra due to probable seizure activity reported. Continue ventriculostomy catheter. EVD reservoir increased to 15 cm pressure on 10/10/2016 Non- chemical DVT prophylaxis Ulcer prophylaxis Okay to begin weaning sedation from neurosurgery standpoint Discussed with nursing staff in the room today. Patient reportedly agitated with increased hypertension with attempts at sedation vacation. We will add additional when necessary antihypertensive to try to improve excessive hypertension with sedation wean Gino Mace MD Oct 10, 2016 19:59
[2016-10-11] VITALS (19 sets, daily range): BP systolic 122–168; BP diastolic 60–82; PULSE 98–123; RESP 24–28; TEMP 100.4–102; O2SAT 92–99
[2016-10-11] MEDS: SODIUM CHLOR 0.9% 1000 ML INJ 1,000 ML IV SCH ×2 (00:28→13:26)
[2016-10-11] MEDS: LABETALOL HCL 100 MG/20 ML VIAL IV PUSH PRN (01:15)
[2016-10-11] MEDS: METOPROLOL TARTRATE 25 MG TAB PO SCH ×4 (01:15→19:33)
[2016-10-11] MEDS ORDERED: SODIUM CHLOR 0.9% 250 ML INJ 250 ML ONE (02:29)
[2016-10-11] MEDS: niCARdipine INJ 25 MG in SODIUM CHLOR 0.9% 250 ML INJ 250 ML IV SCH ×6 (02:30→19:34)
[2016-10-11] MEDS: ACETAMINOPHEN 325 MG TAB PO PRN ×3 (03:37→19:33)
[2016-10-11] MEDS: DOCUSATE SODIUM 100 MG CAP G-TUBE SCH ×2 (03:37→16:00)
[2016-10-11] MEDS: CHLORHEXIDINE GLUCONATE 2 % 1 PACK (2 CLOTHS) TOP SCH (03:37)
[2016-10-11] MEDS: niMODipine 30 MG CAP PO SCH ×5 (03:37→19:33)
[2016-10-11] MEDS: MORPHINE SULFATE 4 MG/ML INJ IV PRN (04:59)
[2016-10-11 05:05] LABS: AUTOMATED NEUTROPHIL # 11.9 TH/MM3 (1.8-7.7); BASOPHIL % 0.3 % (0.0-2.0); EOSINOPHIL % 0.3 % (0.0-4.0); HEMATOCRIT 27.9 % (39.0-51.0); HEMOGLOBIN 9.5 GM/DL (13.0-17.0); LYMPH % 6.6 % (9.0-44.0); LYMPHOCYTE # 0.9 TH/MM3 (1.0-4.8); MEAN CELL VOLUME 90.9 FL (80.0-100.0); MEAN CORPUSCULAR HEMOGLOBIN 30.8 PG (27.0-34.0); MEAN CORPUSCULAR HGB CONC 33.9 % (32.0-36.0); MEAN PLATELET VOLUME 9.2 FL (7.0-11.0); MONO % 8.8 % (0.0-8.0); MONOCYTE # 1.2 TH/MM3 (0-0.9); PLATELET COUNT 174 TH/MM3 (150-450); RED BLOOD COUNT 3.07 MIL/MM3 (4.50-5.90); RED CELL DISTRIBUTION WIDTH 13.5 % (11.6-17.2); WHITE BLOOD COUNT 14.1 TH/MM3 (4.0-11.0)
[2016-10-11 05:23] LABS: BICARBONATE 20.5 MEQ/L (21.0-32.0); CALCIUM 7.1 MG/DL (8.5-10.1); CREATININE 1.12 MG/DL (0.60-1.30)
[2016-10-11] MEDS: POTASSIUM CHLOR 20 MEQ PREMIX 100 ML IV PRN ×2 (05:33→07:41)
[2016-10-11 05:41] LABS: CALCIUM-PROTEIN CORRECTED 7.9 MG/DL (8.5-10.1); TOTAL PROTEIN 5.5 GM/DL (6.4-8.2)
[2016-10-11] MEDS: PROPOFOL 1000 MG/100 ML INJ 100 ML IV SCH ×4 (06:40→18:20)
--- NOTE | 2016-10-11 07:17 | HHI.CCPN ---
Subjective Remarks/Hospital Course 51 year old male presents with being brought in as a trauma alert due to a head injury with altered mental status and a diminished GCS. The patient was in the bathroom and fell and hit his head. This was an unwitnessed fall. According to the patient's the patient had been unresponsive for approximately 15 minutes by the time ambulance services arrived. When they arrived the patient was noted to be a GCS of 14, however his mentation would wax and wane and go down as low as 3 again. On arrival to the emergency department he felt extremely nauseated. The CT of the head revealed diffuse subarachnoid bleed. 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 CT head today with some ventricular blood. ICP controlled and patient tolerates lightening of sedation. Volume loaded to maintain SBP > 130s. Opens eyes to voice. 10/07: BP controlled. TCDs to be done today. 10/08: BP control good. Well hydrated. No TCD evidence of spasm. 10/09: TCD today pending. CPP good. No seizure activity. Remains well hydrated. 10/10: TCDs no vasospasm. Remains well hydrated, well perfused. Some peripheral edema as expected. 10/11: Hemodynamics good. Bladder spasm continues. Try Flomax - an alpha kendall , will not impair cerebral vessels. Objective Vital Signs Date Time Temp Pulse Resp B/P Pulse Ox O2 Delivery O2 Flow Rate FiO2 10/11/16 03:58 97 50 10/11/16 02:00 106 10/11/16 00:00 101.3 24 144/60 Intake and Output 10/10/16 10/10/16 10/11/16 08:00 16:00 00:00 Intake Total 2911 ml 2153 ml 1640 ml Output Total 1019 ml 64 ml 50 ml Balance 1892 ml 2089 ml 1590 ml Result Diagram: 10/11/16 0430 10/11/16 043 Imaging Last 24 hours Impressions Pelvis X-Ray 10/05/16109 Signed Impressions: Service Date/Time: Wednesday, October 05, 2016 01:22 - CONCLUSION: Unremarkable examination of the pelvis. Ruben Acuña Jr., MD Head CT 10/05/16109 Signed Impressions: Service Date/Time: Wednesday, October 05, 2016 01:38 - CONCLUSION: Diffuse subarachnoid hemorrhage. Ruben Acuña Jr., MD Chest X-Ray 10/05/16109 Signed Impressions: Service Date/Time: Wednesday, October 05, 2016 01:22 - CONCLUSION: No acute disease. Ruben Acuña Jr., MD Chest CT 10/05/16109 Signed Impressions: Service Date/Time: Wednesday, October 05, 2016 01:46 - CONCLUSION: 1. No acute intrathoracic abnormality. 2. Bibasilar atelectasis. 3. Cardiomegaly. 4. Prior granulomatous disease. Ruben Acuña Jr., MD Cervical Spine CT 10/05/16109 Signed Impressions: Service Date/Time: Wednesday, October 05, 2016 01:40 - CONCLUSION: 1. No fracture or dislocation. 2. Multilevel degenerative changes. Ruben Acuña Jr., MD Abdomen/Pelvis CT 10/05/16109 Signed Impressions: Service Date/Time: Wednesday, October 05, 2016 01:46 - CONCLUSION: 1. No acute trauma. 2. Rounded area of decreased density involving the pancreatic head. I cannot completely exclude pancreatic head mass. At some point MRI of the pancreas is suggested to further evaluate. 3. Focal area of poor enhancement involving the left kidney. This may relate to an area of parenchymal scarring. I cannot completely exclude a mass. This can be further assessed with MRI as well. Ruben Acuña Jr., MD Objective Remarks GENERAL: Calm, sedated. SKIN: Warm and dry. HEAD: Normocephalic. EYES: Pupils are 2 mm and reactive bilaterally. NECK: Supple, trachea midline. Orally intubated. CARDIOVASCULAR: Regular rate and rhythm without murmurs, gallops, or rubs. No JVD. RESPIRATORY: Breath sounds equal bilaterally.Clear, no wheezes or crackles. Good soha excursions. GASTROINTESTINAL: Abdomen soft, non-tender, nondistended. BS active. No guarding. MUSCULOSKELETAL: No cyanosis, or edema. EXTREMITIES: Nonfocal clubbing cyanosis or edema, well perfused. NEURO: Opens eyes when light. COURTNEY. A/P Problem List: (1) 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 ICD Code: I60.8 Status: Acute (2) Intracranial hemorrhage ICD Code: I62.9 Status: Acute (3) Hypertension ICD Code: I10 Status: Acute Assessment and Plan Respiratory failure - Intubated for airway protection - No weaning until neurologically improved and stable - ABGs - DuoNeb's as needed for wheezing - Follow EtCO2 Subarachnoid bleed - Núñez Veliz 5 Lucas grade 3 - Most likely an aneurysm - CTA - Nimodipine. - Pravachol - SBP goal less than 140 - Daily TCD's - Basilar tip coiled. Hypertension - Nimodipine drip to keep SBP 130 -150 s/p coiling. - Labetalol when necessary. DVT GI prophylaxis - Teds SCDs - No pharmacological prophylaxis due to ICH - Protonix IV Bladder Spasms - Start Flomax Overall impression: Spontaneous subarachnoid hemorrhage, s/p coiling of basilar tip aneurysm. Critically ill for the next 5-10 days as we remain vigilant for vasospasm and control hemodynamics. BP control acceptable. Some peripheral edema accumulating. Flomax is an alpha kendall, will not cause cerebral vessel vasospasm. Critical Care 38 mins Problem Qualifiers (1) Hypertension: Qualified Code: I10 - Essential hypertension Dave Barragan MD Oct 11, 2016 07:17
[2016-10-11] MEDS: PRAVASTATIN SOD 40 MG TAB PO SCH (08:00)
[2016-10-11] MEDS: LACTULOSE SYRUP 20 GM/30 ML CUP PO SCH (08:00)
[2016-10-11] MEDS: TAMSULOSIN HCL 0.4 MG CAP PO SCH ×2 (08:00→19:33)
[2016-10-11] MEDS: levETIRAcetam INJ 500 MG in SODIUM CHLORIDE 0.9% INJ 100 ML IV SCH ×2 (08:01→19:33)
[2016-10-11] MEDS: PANTOPRAZOLE SODIUM 40 MG VIAL IV SCH (08:01)
[2016-10-11] MEDS: SODIUM CHLORIDE 0.9% FLUSH 10 ML FLUSH IV FLUSH SCH (08:02)
[2016-10-11] MEDS: POLYETHYLENE GLYCOL 17 GM PKG PO SCH (08:02)
[2016-10-11] MEDS: ARTIFICIAL TEARS OPTH SOLN 15 ML BTL EACH EYE SCH ×3 (08:02→17:34)
[2016-10-11] MEDS ORDERED: ATROPINE SULFATE 1 MG/10 ML SYRINGE ONE (09:51)
[2016-10-11] MEDS ORDERED: LIDOCAINE HCL 2% 100 MG/5 ML SYRINGE ONE (09:51)
[2016-10-11] MEDS ORDERED: EPINEPHrine HCL (1:10,000) 1 MG/10 ML SYRINGE ONE (09:51)
[2016-10-11] MEDS ORDERED: IOHEXOL 350 MG/ML 10 ML VIAL (for RAD DIAG) IV ONE (10:56)
--- NOTE | 2016-10-11 11:08 | RADRPT ---
EXAM DATE/TIME: 10/11/2016 10:17 [facility] COMPARISON: TRANSCATH IV OCCLUSSION, CEREBRAL ANEURYSM, RIGHT, October 05, 2016, 11:19. ANGIOGRAM,SELECT ADD VESSE L,RT, October 05, 2016, 16:17. CT BRAIN W/O CONTRAST, October 06, 2016, 4:28. INDICATIONS : Aneurysm. Pupil change. RADIATION DOSE: 56.35 CTDIvol (mGy) MEDICAL HISTORY : Cardiovascular disease. Hypertension. Aneurysm, intracranial.Subarachnoid hemorrhage. SURGICAL HISTORY : None. ENCOUNTER: Subsequent ACUITY: 4 - 6 days PAIN SCALE: Non-responsive LOCATION: cranial TECHNIQUE: Multiple contiguous axial images were obtained of the head. Using automated exposure control and adj ustment of the mA and/or kV according to patient size, radiation dose was kept as low as reasonably a chievable to obtain optimal diagnostic quality images. FINDINGS: Ventriculostomy is stable in position. Ventricular size and configuration is stable. Evolving subarac hnoid blood is slightly less conspicuous. Intraventricular blood is again noted. There are no new acu te findings identified.. CONCLUSION: Evolving intracranial hemorrhage. No definite new acute intracranial findings. Tim Granado MD on October 11, 2016 at 11:01 Board Certified Radiologist. This report was verified electronically.
--- NOTE | 2016-10-11 11:34 | RADRPT ---
EXAM DATE/TIME: 10/11/2016 10:15 [facility] COMPARISON: CTA BRAIN W 3D RECON, October 05, 2016, 3:13. INDICATIONS : Follow up aneurysm. Pupil change. IV CONTRAST: 100 cc Omnipaque 350 (iohexol) IV RADIATION DOSE: 21.67 CTDIvol (mGy) MEDICAL HISTORY : Cardiovascular disease. Hypertension. Aneurysm, intracranial.Subarachnoid hemorrhage. SURGICAL HISTORY : None. ENCOUNTER: Subsequent ACUITY: 4 - 6 days PAIN SCALE: 0/10 LOCATION: cranial TECHNIQUE: Volumetric scanning was performed using a multi-row detector CT scanner. The data was post processed with a variety of visualization algorithms including full volume maximum intensity projection, multi -planar sliding thin slab reformation, curved planar reformation, and surface rendering techniques. Using automated exposure control and adjustment of the mA and/or kV according to patient size, radiat ion dose was kept as low as reasonably achievable to obtain optimal diagnostic quality images. FINDINGS: There has been interval coiling of a basilar tip aneurysm. The coils do create some local artifact at the [place] of [place] level. The major vessels are patent throughout with no evidence of significant vasospasm at present. CONCLUSION: Satisfactory CTA appearance post basilar tip aneurysm coiling. Tim Granado MD on October 11, 2016 at 11:28 Board Certified Radiologist. This report was verified electronically.
[2016-10-11] MEDS: cloNIDine HCL 0.1 MG TAB NG PRN (12:20)
[2016-10-11] MEDS: fentaNYL 2,500 MCG/NS 250 ML IV SCH (12:50)
--- NOTE | 2016-10-11 15:41 | RADRPT ---
EXAM DATE/TIME: 10/11/2016 08:03 [facility] COMPARISON: US TRANSCRANIAL DOPPLER COMPLETE, October 10, 2016, 8:32. INDICATIONS : Subarachnoid hemorrhage. MEDICAL HISTORY : Hypertension. Pancreatitis. TIA. SURGICAL HISTORY : Ventriculostomy drain. Endovascular coiling. ENCOUNTER: Subsequent ACUITY: 4-6 days PAIN SCORE: Nonresponsive. LOCATION: Bilateral cranial Current Exam: Oct 11, 2016 [place] Ratio: Right: 2.3 Left: 3.3 Gregorio Ratio: Right: 1.6 Left: 1.8 Previous Exam: Oct 10, 2016 [place] Ratio: Right: 2.1 Left: 2.1 Gregorio Ratio: Right: 1.5 Left: 1.9 FINDINGS: Examination performed at bedside. Real-time ultrasound with the assistance of color and spectral Dop pler was utilized to evaluate the intracerebral circulation. Time-averaged maximal velocities are ca lculated in cm/s. CONCLUSION: Mild increase left MCA velocity and Lindegard ratio characteristic of mild vasospasm. Interval increase right Lindegard ratio which remains within normal limits. Leonel Alva MD on October 11, 2016 at 15:32 Board Certified Radiologist. This report was verified electronically.
--- NOTE | 2016-10-11 19:31 | HHI.NSPN ---
History Chief Complaint: intubated and sedated Interval History 51-year-old male admitted with positive subarachnoid hemorrhage. Possible seizure activity. Intubated in the emergency room. 10/05/16: Endovascular coiling 10/07/16 rinse intubated and sedated. Ventriculostomy in place 10/09/16: Remains intubated and sedated. Increased agitation with attempts at sedation vacation Exam Results Vital Signs Date Time Temp Pulse Resp B/P Pulse Ox O2 Delivery O2 Flow Rate FiO2 10/11/16 18:00 113 10/11/16 16:00 101.1 25 135/75 97 10/11/16 16:00 50 Intake and Output 10/10/16 10/10/16 10/11/16 08:00 16:00 00:00 Intake Total 2911 ml 2153 ml 1640 ml Output Total 1019 ml 64 ml 50 ml Balance 1892 ml 2089 ml 1590 ml Physical Examination Intubated and sedated. Respirations clear to auscultation Cardiac regular without murmur Abdomen soft, nondistended Ventricular catheter in place with drainage of slightly blood-tinged CSF. ICPs less than 15 Pupils approximately 3 mm, nonreactive, slightly greater on the right side today. Mild corneal responses Minimal oculocephalic Minimal flexion deep pain upper extremities Lab, Micro, Other Results 10/11/2016 CT scan head and CT angiogram brain images are reviewed. No evidence of vasospasm or increased edema. Head CTA 10/11/16 0600 Signed Impressions: Service Date/Time: Tuesday, October 11, 2016 10:15 - CONCLUSION: Satisfactory CTA appearance post basilar tip aneurysm coiling. Tim Granado MD Head CT 10/11/16 0600 Signed Impressions: Service Date/Time: Tuesday, October 11, 2016 10:17 - CONCLUSION: Evolving intracranial hemorrhage. No definite new acute intracranial findings. Tim Granado MD Transcranial Doppler Study Complete 10/11/16 0000 Signed Impressions: Service Date/Time: Tuesday, October 11, 2016 08:03 - CONCLUSION: Mild increase left MCA velocity and Lindegard ratio characteristic of mild vasospasm. Interval increase right Lindegard ratio which remains within normal limits. Leonel Alva MD Medical Decision Making Impression and Plan Impression: 1. Stable neurologic status following endovascular coiling for subarachnoid hemorrhage-ruptured basilar tip aneurysm.. 10/07/16 Transcranial Doppler negative for definite vasospasm Slight pupil change today Plan: maintenance of systolic blood pressure 130-170. Continue to wean ventriculostomy Continuing Keppra due to probable seizure activity reported. Continue ventriculostomy catheter. EVD reservoir increased to 15 cm pressure on 10/10/2016 Non- chemical DVT prophylaxis Ulcer prophylaxis Okay to begin weaning sedation from neurosurgery standpoint Gino Mace MD Oct 11, 2016 19:31
[2016-10-11] MEDS ORDERED: NOREPINEPHRINE 4 MG/4 ML AMP ONE (20:25)
--- NOTE | 2016-10-11 21:28 | RADRPT ---
EXAM DATE/TIME: 10/11/2016 20:57 [facility] COMPARISON: CHEST SINGLE AP, October 06, 2016, 12:06. INDICATIONS : Decreased oxygen saturation. Known intracranial hemorrhage. MEDICAL HISTORY : Aneurysm, intracranial. ICH SURGICAL HISTORY : aneurysm coiling ENCOUNTER: Subsequent ACUITY: 1 week PAIN SCORE: Non-responsive. LOCATION: Bilateral chest FINDINGS: A single AP supine portable view of the chest was obtained and again demonstrates an endotracheal tub e in place with the tip approximately 4 cm above the danika. A nasogastric tube is seen coursing thro ugh the esophagus into the stomach. The heart size remains mildly prominent. There is mild hazy opaci ty at the left lung base with apparent subtle air bronchograms. There is no perihilar edema. There is no effusion. The bony thorax is intact. CONCLUSION: 1. Mild hazy opacity at the left medial lung base with subtle air bronchograms. This could represent a mild pneumonia. 2. The patient remains intubated with nasogastric tube in place. Teo Weiss MD on October 11, 2016 at 21:24 Board Certified Radiologist. This report was verified electronically.
[2016-10-12] VITALS (20 sets, daily range): BP systolic 120–166; BP diastolic 52–70; PULSE 68–103; RESP 21–28; TEMP 99.3–100.9; O2SAT 94–100
[2016-10-12] MEDS: PROPOFOL 1000 MG/100 ML INJ 100 ML IV SCH ×5 (00:32→23:02)
[2016-10-12] MEDS: fentaNYL 2,500 MCG/NS 250 ML IV SCH ×2 (00:33→12:36)
[2016-10-12] MEDS: niMODipine 30 MG CAP PO SCH ×6 (00:33→19:51)
[2016-10-12] MEDS: SODIUM CHLOR 0.9% 1000 ML INJ 1,000 ML IV SCH ×2 (00:49→13:16)
[2016-10-12] MEDS: METOPROLOL TARTRATE 25 MG TAB PO SCH ×4 (02:00→21:02)
[2016-10-12 02:12] LABS: BACTERIA, URINE MOD /hpf; BILIRUBIN, URINE NEG (NEG); BLOOD, URINE LARGE (NEG); GLUCOSE,URINE NEG (NEG); KETONE, URINE NEG (NEG); MUCUS URINE FEW /lpf (OCC); NITRITE,URINE NEG (NEG); PH, URINE 5.5 (5.0-8.5); SQUAMOUS EPITHELIAL CELL URINE 1 /hpf (0-5); URINE COLOR YELLOW (YELLW/STRAW); URINE LEUKOCYTE ESTERASE LARGE (NEG); WHITE BLOOD CELL CLUMPS MANY
[2016-10-12] MEDS ORDERED: Vancomycin Consult Pharmacy 1 EA OTHER SCH (02:15)
[2016-10-12] MEDS: AZTREONAM INJ 2,000 MG in SODIUM CHLORIDE 0.9% INJ 100 ML IV SCH ×3 (02:34→18:00)
[2016-10-12] MEDS: CHLORHEXIDINE GLUCONATE 2 % 1 PACK (2 CLOTHS) TOP SCH (04:00)
[2016-10-12] MEDS ORDERED: VANCOMYCIN INJ 2,500 MG in SODIUM CHLORID 0.9% 500 ML INJ 500 ML IV ONE (04:00)
[2016-10-12] MEDS: metroNIDAZOLE 500 MG INJ 100 ML IV SCH ×4 (04:04→19:52)
[2016-10-12] MEDS: DOCUSATE SODIUM 100 MG CAP G-TUBE SCH ×2 (04:04→16:00)
[2016-10-12 04:58] LABS: AUTOMATED NEUTROPHIL # 21.8 TH/MM3 (1.8-7.7); BASOPHIL # 0.1 TH/MM3 (0-0.2); BASOPHIL % 0.3 % (0.0-2.0); EOSINOPHIL # 0.1 TH/MM3 (0-0.4); EOSINOPHIL % 0.4 % (0.0-4.0); HEMATOCRIT 28.3 % (39.0-51.0); HEMOGLOBIN 9.3 GM/DL (13.0-17.0); LYMPH % 3.2 % (9.0-44.0); LYMPHOCYTE # 0.8 TH/MM3 (1.0-4.8); MEAN CELL VOLUME 91.2 FL (80.0-100.0); MEAN CORPUSCULAR HEMOGLOBIN 29.8 PG (27.0-34.0); MEAN CORPUSCULAR HGB CONC 32.7 % (32.0-36.0); MEAN PLATELET VOLUME 9.4 FL (7.0-11.0); MONO % 6.1 % (0.0-8.0); MONOCYTE # 1.5 TH/MM3 (0-0.9); PLATELET COUNT 146 TH/MM3 (150-450); RED BLOOD COUNT 3.11 MIL/MM3 (4.50-5.90); RED CELL DISTRIBUTION WIDTH 13.2 % (11.6-17.2); WHITE BLOOD COUNT 24.3 TH/MM3 (4.0-11.0)
[2016-10-12 05:31] LABS: BICARBONATE 19.4 MEQ/L (21.0-32.0); CALCIUM 8.1 MG/DL (8.5-10.1); CREATININE 2.86 MG/DL (0.60-1.30)
[2016-10-12 07:14] LABS: BANDS 16 % (0-6); LYMPHOCYTES 5 % (9-44); MONOCYTES 2 % (0-8); NEUTROPHIL # MANUAL DIFF 22.6 TH/MM3 (1.8-7.7); POLYS (SEG NEUTROPHILS) 77 % (16-70)
[2016-10-12] MEDS: RESP: ALBUTEROL 2.5 MG/IPRATROPIUM 0.5 MG NEB (PRN) INH ×2 (08:21→16:48)
[2016-10-12] MEDS: LACTULOSE SYRUP 20 GM/30 ML CUP PO SCH (08:42)
[2016-10-12] MEDS: POLYETHYLENE GLYCOL 17 GM PKG PO SCH (08:42)
[2016-10-12] MEDS: ARTIFICIAL TEARS OPTH SOLN 15 ML BTL EACH EYE SCH ×3 (08:43→18:00)
[2016-10-12] MEDS: levETIRAcetam INJ 500 MG in SODIUM CHLORIDE 0.9% INJ 100 ML IV SCH ×2 (08:43→19:52)
[2016-10-12] MEDS: PRAVASTATIN SOD 40 MG TAB PO SCH (08:43)
[2016-10-12] MEDS: SODIUM CHLORIDE 0.9% FLUSH 10 ML FLUSH IV FLUSH SCH (08:44)
[2016-10-12] MEDS: PANTOPRAZOLE SODIUM 40 MG VIAL IV SCH (08:44)
--- NOTE | 2016-10-12 08:44 | HHI.CCPN ---
Subjective Remarks/Hospital Course 51 year old male presents with being brought in as a trauma alert due to a head injury with altered mental status and a diminished GCS. The patient was in the bathroom and fell and hit his head. This was an unwitnessed fall. According to the patient's the patient had been unresponsive for approximately 15 minutes by the time ambulance services arrived. When they arrived the patient was noted to be a GCS of 14, however his mentation would wax and wane and go down as low as 3 again. On arrival to the emergency department he felt extremely nauseated. The CT of the head revealed diffuse subarachnoid bleed. 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 CT head today with some ventricular blood. ICP controlled and patient tolerates lightening of sedation. Volume loaded to maintain SBP > 130s. Opens eyes to voice. 10/07: BP controlled. TCDs to be done today. 10/08: BP control good. Well hydrated. No TCD evidence of spasm. 10/09: TCD today pending. CPP good. No seizure activity. Remains well hydrated. 10/10: TCDs no vasospasm. Remains well hydrated, well perfused. Some peripheral edema as expected. 10/11: Hemodynamics good. Bladder spasm continues. Try Flomax - an alpha kendall , will not impair cerebral vessels. 10/12: Episode of sepsis last night from obstructed Paul, JONH evident. Much improved now. Objective Vital Signs Date Time Temp Pulse Resp B/P Pulse Ox O2 Delivery O2 Flow Rate FiO2 10/12/16 08:09 96 45 10/12/16 06:00 90 10/12/16 04:00 100.0 28 120/58 Intake and Output 10/11/16 10/11/16 10/12/16 08:00 16:00 00:00 Intake Total 2230 ml 1916 ml 1466 ml Output Total 50 ml 100 ml 62 ml Balance 2180 ml 1816 ml 1404 ml Result Diagram: 10/12/16 0445 10/12/16 044 Imaging Last 24 hours Impressions Pelvis X-Ray 10/05/16109 Signed Impressions: Service Date/Time: Wednesday, October 05, 2016 01:22 - CONCLUSION: Unremarkable examination of the pelvis. Ruben Acuña Jr., MD Head CT 10/05/16109 Signed Impressions: Service Date/Time: Wednesday, October 05, 2016 01:38 - CONCLUSION: Diffuse subarachnoid hemorrhage. Ruben Acuña Jr., MD Chest X-Ray 10/05/16109 Signed Impressions: Service Date/Time: Wednesday, October 05, 2016 01:22 - CONCLUSION: No acute disease. Ruben Acuña Jr., MD Chest CT 10/05/16109 Signed Impressions: Service Date/Time: Wednesday, October 05, 2016 01:46 - CONCLUSION: 1. No acute intrathoracic abnormality. 2. Bibasilar atelectasis. 3. Cardiomegaly. 4. Prior granulomatous disease. Ruben Acuña Jr., MD Cervical Spine CT 10/05/16109 Signed Impressions: Service Date/Time: Wednesday, October 05, 2016 01:40 - CONCLUSION: 1. No fracture or dislocation. 2. Multilevel degenerative changes. Ruben Acuña Jr., MD Abdomen/Pelvis CT 10/05/16109 Signed Impressions: Service Date/Time: Wednesday, October 05, 2016 01:46 - CONCLUSION: 1. No acute trauma. 2. Rounded area of decreased density involving the pancreatic head. I cannot completely exclude pancreatic head mass. At some point MRI of the pancreas is suggested to further evaluate. 3. Focal area of poor enhancement involving the left kidney. This may relate to an area of parenchymal scarring. I cannot completely exclude a mass. This can be further assessed with MRI as well. Ruben Acuña Jr., MD Objective Remarks GENERAL: Calm, sedated. SKIN: Warm, flushed, damp HEAD: Normocephalic. EYES: Pupils are 2 mm and reactive bilaterally. NECK: Supple, trachea midline. Orally intubated. CARDIOVASCULAR: Regular rate and rhythm without murmurs, gallops, or rubs. No JVD. RESPIRATORY: Breath sounds equal bilaterally. Clear, no wheezes or crackles. Good soha excursions. Tachypnea. GASTROINTESTINAL: Abdomen soft, non-tender, nondistended. BS active. No guarding. EXTREMITIES: Nonfocal clubbing cyanosis or edema, well perfused. Flushed. NEURO: Opens eyes when light. COURTNEY. A/P Problem List: (1) 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 ICD Code: I60.8 Status: Acute (2) Intracranial hemorrhage ICD Code: I62.9 Status: Acute (3) Hypertension ICD Code: I10 Status: Acute Assessment and Plan Respiratory failure - Intubated for airway protection - No weaning until neurologically improved and stable - ABGs - DuoNeb's as needed for wheezing - Follow EtCO2 Subarachnoid bleed - Núñez Veliz 5 Lucas grade 3 - Most likely an aneurysm - CTA - Nimodipine. - Pravachol - SBP goal less than 140 - Daily TCD's - Basilar tip coiled. Hypertension - Nimodipine drip to keep SBP 140 -170 s/p coiling. - Labetalol when necessary. DVT GI prophylaxis - Teds SCDs - No pharmacological prophylaxis due to ICH - Protonix IV Bladder Spasms - Start Flomax -Urinary sepsis. Broad abx coverage started -Taper off vasopressors. Overall impression: Spontaneous subarachnoid hemorrhage, s/p coiling of basilar tip aneurysm. Critically ill for the next 5-10 days as we remain vigilant for vasospasm and control hemodynamics. BP control acceptable. Some peripheral edema accumulating. Resuscitated from septic state, remains critically ill with new JONH. Critical Care 42 mins Problem Qualifiers (1) Hypertension: Qualified Code: I10 - Essential hypertension Dave Barragan MD Oct 12, 2016 08:44
[2016-10-12] MEDS: TAMSULOSIN HCL 0.4 MG CAP PO SCH ×2 (09:00→19:51)
--- NOTE | 2016-10-12 11:00 | RADRPT ---
EXAM DATE/TIME: 10/12/2016 07:26 [facility] COMPARISON: CT BRAIN W/O CONTRAST, October 11, 2016, 10:17. US TRANSCRANIAL DOPPLER COMPLETE, October 11, 2016, 8:03 . INDICATIONS : Subarachnoid hemorrhage. MEDICAL HISTORY : Hypertension. Pancreatitis. TIA. SURGICAL HISTORY : Ventriculostomy drain. Endovascular coiling. ENCOUNTER: [facility] ACUITY: 1 day PAIN SCORE: Nonresponsive. LOCATION: Bilateral cranial Current Exam: Oct 12, 2016 [place] Ratio: Right: 2.4 Left: 4.7 Gregorio Ratio: Right: 1.3 Left: 2.1 Previous Exam: Oct 11, 2016 [place] Ratio: Right: 2.3 Left: 3.3 Gregorio Ratio: Right: 1.6 Left: 1.8 FINDINGS: Examination performed at bedside. Real-time ultrasound with the assistance of color and spectral Dop pler was utilized to evaluate the intracerebral circulation. Time-averaged maximal velocities are ca lculated in cm/s. Mean flow velocity and Lindegard ratio is mildly elevated in the left middle cerebral artery territor y and has increased from yesterday's exam. CONCLUSION: 1. Abnormal velocity and Lindegard ratio in the left middle cerebral artery territory indicating mild to moderate vasospasm. Velocity measurements and ratios have increased compared to yesterday's study . 2. Remaining vessels demonstrate no findings to indicate vasospasm. Tim Montgomery MD on October 12, 2016 at 10:56 Board Certified Radiologist. This report was verified electronically.
[2016-10-12 19:53] LABS: BICARBONATE 21.4 MEQ/L (21.0-32.0); CALCIUM 8.1 MG/DL (8.5-10.1); CREATININE 1.78 MG/DL (0.60-1.30)
[2016-10-12] MEDS: ACETAMINOPHEN 325 MG TAB PO PRN (21:01)
--- NOTE | 2016-10-12 21:18 | HHI.NSPN ---
History Chief Complaint: intubated and sedated Interval History 51-year-old male admitted with positive subarachnoid hemorrhage. Possible seizure activity. Intubated in the emergency room. 10/05/16: Endovascular coiling 10/07/16 rinse intubated and sedated. Ventriculostomy in place 10/09/16: Remains intubated and sedated. Increased agitation with attempts at sedation vacation Exam Results Vital Signs Date Time Temp Pulse Resp B/P Pulse Ox O2 Delivery O2 Flow Rate FiO2 10/12/16 20:04 99 45 10/12/16 18:00 84 10/12/16 16:00 100.0 21 166/70 Intake and Output 10/11/16 10/11/16 10/12/16 08:00 16:00 00:00 Intake Total 2230 ml 1916 ml 1466 ml Output Total 50 ml 100 ml 62 ml Balance 2180 ml 1816 ml 1404 ml Physical Examination Intubated and sedated. Respirations clear to auscultation Cardiac regular without murmur Abdomen soft, nondistended Ventricular catheter in place with drainage of slightly blood-tinged CSF. ICP 15 Pupils approximately 3 mm, nonreactive, slightly greater on the right side today. Mild corneal responses Minimal oculocephalic Minimal flexion deep pain upper extremities Lab, Micro, Other Results Last 24 hours Impressions Transcranial Doppler Study Complete 10/12/16 0000 Signed Impressions: Service Date/Time: Wednesday, October 12, 2016 07:26 - CONCLUSION: 1. Abnormal velocity and Lindegard ratio in the left middle cerebral artery territory indicating mild to moderate vasospasm. Velocity measurements and ratios have increased compared to yesterday's study. 2. Remaining vessels demonstrate no findings to indicate vasospasm. Tim Montgomery MD Laboratory Tests Test 10/12/16 10/12/16 10/12/16 01:45 04:45 18:40 Urine Color YELLOW Urine Turbidity CLOUDY Urine pH 5.5 Urine Specific [place] 1.025 Urine Protein 100 mg/dL Urine Glucose (UA) NEG mg/dL Urine Ketones NEG mg/dL Urine Occult Blood LARGE Urine Nitrite NEG Urine Bilirubin NEG Urine Urobilinogen LESS THAN 2.0 MG/DL Urine Leukocyte Esterase LARGE Urine RBC /hpf Urine WBC /hpf Urine WBC Clumps MANY Urine Squamous Epithelial 1 /hpf Cells Urine Bacteria MOD /hpf Urine Mucus FEW /lpf Microscopic Urinalysis Comment CATH-CULTURE IND White Blood Count 24.3 TH/MM3 Red Blood Count 3.11 MIL/MM3 Hemoglobin 9.3 GM/DL Hematocrit 28.3 % Mean Corpuscular Volume 91.2 FL Mean Corpuscular Hemoglobin 29.8 PG Mean Corpuscular Hemoglobin 32.7 % Concent Red Cell Distribution Width 13.2 % Platelet Count 146 TH/MM3 Mean Platelet Volume 9.4 FL Neutrophils (%) (Auto) 90.0 % Lymphocytes (%) (Auto) 3.2 % Monocytes (%) (Auto) 6.1 % Eosinophils (%) (Auto) 0.4 % Basophils (%) (Auto) 0.3 % Neutrophils # (Auto) 21.8 TH/MM3 Lymphocytes # (Auto) 0.8 TH/MM3 Monocytes # (Auto) 1.5 TH/MM3 Eosinophils # (Auto) 0.1 TH/MM3 Basophils # (Auto) 0.1 TH/MM3 CBC Comment AUTO DIFF Differential Total Cells 100 Counted Neutrophils % (Manual) 77 % Band Neutrophils % 16 % Lymphocytes % 5 % Monocytes % 2 % Neutrophils # (Manual) 22.6 TH/MM3 Differential Comment FINAL DIFF MANUAL Platelet Estimate NORMAL Platelet Morphology Comment NORMAL Red Cell Morphology Comment NORMAL Sodium Level 148 MEQ/L 147 MEQ/L Potassium Level 4.0 MEQ/L 3.9 MEQ/L Chloride Level 116 MEQ/L 117 MEQ/L Carbon Dioxide Level 19.4 MEQ/L 21.4 MEQ/L Anion Gap 13 MEQ/L 9 MEQ/L Blood Urea Nitrogen 67 MG/DL 54 MG/DL Creatinine 2.86 MG/DL 1.78 MG/DL Estimat Glomerular Filtration 23 ML/MIN 40 ML/MIN Rate Random Glucose 155 MG/DL 148 MG/DL Calcium Level 8.1 MG/DL 8.1 MG/DL Medical Decision Making Impression and Plan Impression: 1. Stable neurologic status following endovascular coiling for subarachnoid hemorrhage-ruptured basilar tip aneurysm.. 10/12/16 Transcranial Doppler negative for definite vasospasm Plan: maintenance of systolic blood pressure 130-170. Continue to wean ventriculostomy. EVD at 15 cm water. Continuing Keppra due to probable seizure activity reported. Okay for Lovenox from neurosurgery standpoint Ulcer prophylaxis Okay to begin weaning sedation from neurosurgery standpoint Gino Mace MD Oct 12, 2016 21:18
[2016-10-13] VITALS (20 sets, daily range): BP systolic 162–181; BP diastolic 63–76; PULSE 65–100; RESP 20–23; TEMP 98.3–101.4; O2SAT 95–100
[2016-10-13] MEDS: niMODipine 30 MG CAP PO SCH ×7 (00:09→23:50)
[2016-10-13] MEDS: METOPROLOL TARTRATE 25 MG TAB PO SCH ×4 (01:07→20:23)
[2016-10-13] MEDS: SODIUM CHLOR 0.9% 1000 ML INJ 1,000 ML IV SCH ×2 (01:07→08:09)
[2016-10-13] MEDS: AZTREONAM INJ 2,000 MG in SODIUM CHLORIDE 0.9% INJ 100 ML IV SCH ×3 (01:07→16:57)
[2016-10-13] MEDS: metroNIDAZOLE 500 MG INJ 100 ML IV SCH ×4 (02:06→20:24)
[2016-10-13] MEDS: fentaNYL 2,500 MCG/NS 250 ML IV SCH (02:06)
[2016-10-13] MEDS: CHLORHEXIDINE GLUCONATE 2 % 1 PACK (2 CLOTHS) TOP SCH (03:48)
[2016-10-13] MEDS: PROPOFOL 1000 MG/100 ML INJ 100 ML IV SCH ×3 (03:56→16:58)
[2016-10-13] MEDS: DOCUSATE SODIUM 100 MG CAP G-TUBE SCH ×2 (03:56→15:42)
[2016-10-13 04:23] LABS: AUTOMATED NEUTROPHIL # 12.3 TH/MM3 (1.8-7.7); BASOPHIL # 0.1 TH/MM3 (0-0.2); BASOPHIL % 0.7 % (0.0-2.0); EOSINOPHIL # 0.5 TH/MM3 (0-0.4); EOSINOPHIL % 3.2 % (0.0-4.0); HEMATOCRIT 30.7 % (39.0-51.0); HEMOGLOBIN 9.9 GM/DL (13.0-17.0); LYMPH % 4.3 % (9.0-44.0); LYMPHOCYTE # 0.6 TH/MM3 (1.0-4.8); MEAN CELL VOLUME 91.3 FL (80.0-100.0); MEAN CORPUSCULAR HEMOGLOBIN 29.3 PG (27.0-34.0); MEAN CORPUSCULAR HGB CONC 32.1 % (32.0-36.0); MEAN PLATELET VOLUME 9.5 FL (7.0-11.0); MONO % 7.5 % (0.0-8.0); MONOCYTE # 1.1 TH/MM3 (0-0.9); NEUT % 84.3 % (16.0-70.0); PLATELET COUNT 142 TH/MM3 (150-450); RED BLOOD COUNT 3.37 MIL/MM3 (4.50-5.90); RED CELL DISTRIBUTION WIDTH 13.5 % (11.6-17.2); WHITE BLOOD COUNT 14.6 TH/MM3 (4.0-11.0)
[2016-10-13 04:52] LABS: BICARBONATE 21.7 MEQ/L (21.0-32.0); CALCIUM 8.1 MG/DL (8.5-10.1); CREATININE 1.55 MG/DL (0.60-1.30)
[2016-10-13 04:53] LABS: RANDOM VANCOMYCIN 7.4 COMMENT
[2016-10-13] MEDS: SODIUM CHLORIDE 0.9% FLUSH 10 ML FLUSH IV FLUSH SCH (08:08)
[2016-10-13] MEDS: RESP: ALBUTEROL 2.5 MG/IPRATROPIUM 0.5 MG NEB (PRN) INH (08:59)
[2016-10-13] MEDS: POLYETHYLENE GLYCOL 17 GM PKG PO SCH (09:00)
[2016-10-13] MEDS: levETIRAcetam INJ 500 MG in SODIUM CHLORIDE 0.9% INJ 100 ML IV SCH ×2 (09:00→20:24)
[2016-10-13] MEDS: LACTULOSE SYRUP 20 GM/30 ML CUP PO SCH (09:00)
[2016-10-13] MEDS: TAMSULOSIN HCL 0.4 MG CAP PO SCH ×2 (09:00→20:23)
[2016-10-13] MEDS: PANTOPRAZOLE SODIUM 40 MG VIAL IV SCH (09:00)
[2016-10-13] MEDS: ARTIFICIAL TEARS OPTH SOLN 15 ML BTL EACH EYE SCH ×3 (09:00→16:57)
[2016-10-13] MEDS: PRAVASTATIN SOD 40 MG TAB PO SCH (09:44)
[2016-10-13] MEDS: METOCLOPRAMIDE HCL 10 MG/2 ML VIAL IV PRN (09:48)
[2016-10-13] MEDS ORDERED: VANCOMYCIN INJ 2,000 MG in SODIUM CHLORID 0.9% 500 ML INJ 500 ML IV ONE (11:00)
[2016-10-13] MEDS: niCARdipine INJ 25 MG in SODIUM CHLOR 0.9% 250 ML INJ 250 ML IV SCH ×2 (11:39→23:50)
--- NOTE | 2016-10-13 11:45 | RADRPT ---
EXAM DATE/TIME: 10/13/2016 07:48 [facility] COMPARISON: CT BRAIN W/O CONTRAST, October 11, 2016, 10:17. US TRANSCRANIAL DOPPLER COMPLETE, October 07, 2016, 7:38 . US TRANSCRANIAL DOPPLER COMPLETE, October 12, 2016, 7:26. INDICATIONS : Subarachnoid hemorrhage. MEDICAL HISTORY : Hypertension. Pancreatitis. TIA. SURGICAL HISTORY : Ventriculostomy drain. Endovascular coiling. ENCOUNTER: Sequela ACUITY: 1 week PAIN SCORE: Nonresponsive. LOCATION: cranial Current Exam: Oct 13, 2016 [place] Ratio: Right: 1.74 Left: 2.5 Gregorio Ratio: Right: 1.24 Left: 1.5 Previous Exam: Oct 12, 2016 [place] Ratio: Right: 2.4 Left: 4.7 Gregorio Ratio: Right: 1.3 Left: 2.1 FINDINGS: Examination performed at bedside. Real-time ultrasound with the assistance of color and spectral Dop pler was utilized to evaluate the intracerebral circulation. Time-averaged maximal velocities are ca lculated in cm/s. Velocities and ratios are now within normal limits. CONCLUSION: There are no findings to indicate vasospasm. The findings previously suggesting vasospasm on the left have resolved. Tim Montgomery MD on October 13, 2016 at 11:28 Board Certified Radiologist. This report was verified electronically.
--- NOTE | 2016-10-13 17:20 | HHI.CCPN ---
Subjective Remarks/Hospital Course 51 year old male presents with being brought in as a trauma alert due to a head injury with altered mental status and a diminished GCS. The patient was in the bathroom and fell and hit his head. This was an unwitnessed fall. According to the patient's the patient had been unresponsive for approximately 15 minutes by the time ambulance services arrived. When they arrived the patient was noted to be a GCS of 14, however his mentation would wax and wane and go down as low as 3 again. On arrival to the emergency department he felt extremely nauseated. The CT of the head revealed diffuse subarachnoid bleed. 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 CT head today with some ventricular blood. ICP controlled and patient tolerates lightening of sedation. Volume loaded to maintain SBP > 130s. Opens eyes to voice. 10/07: BP controlled. TCDs to be done today. 10/08: BP control good. Well hydrated. No TCD evidence of spasm. 10/09: TCD today pending. CPP good. No seizure activity. Remains well hydrated. 10/10: TCDs no vasospasm. Remains well hydrated, well perfused. Some peripheral edema as expected. 10/11: Hemodynamics good. Bladder spasm continues. Try Flomax - an alpha kendall , will not impair cerebral vessels. 10/12: Episode of sepsis last night from obstructed Paul, JONH evident. Much improved now. 10/13: JONH improving. Narrow abx to GNR. Objective Vital Signs Date Time Temp Pulse Resp B/P Pulse Ox O2 Delivery O2 Flow Rate FiO2 10/13/16 16:00 45 10/13/16 16:00 65 10/13/16 16:00 98.5 20 164/67 95 Intake and Output 10/12/16 10/12/16 10/13/16 08:00 16:00 00:00 Intake Total 853 ml 1457 ml 1050 ml Output Total 2135 ml 3055 ml 2250 ml Balance -1282 ml -1598 ml -1200 ml Result Diagram: 10/13/16 0405 10/13/16404 Imaging Last 24 hours Impressions Pelvis X-Ray 10/05/16109 Signed Impressions: Service Date/Time: Wednesday, October 05, 2016 01:22 - CONCLUSION: Unremarkable examination of the pelvis. Ruben Acuña Jr., MD Head CT 10/05/16109 Signed Impressions: Service Date/Time: Wednesday, October 05, 2016 01:38 - CONCLUSION: Diffuse subarachnoid hemorrhage. Ruben Acuña Jr., MD Chest X-Ray 10/05/16109 Signed Impressions: Service Date/Time: Wednesday, October 05, 2016 01:22 - CONCLUSION: No acute disease. Ruben Acuña Jr., MD Chest CT 10/05/16109 Signed Impressions: Service Date/Time: Wednesday, October 05, 2016 01:46 - CONCLUSION: 1. No acute intrathoracic abnormality. 2. Bibasilar atelectasis. 3. Cardiomegaly. 4. Prior granulomatous disease. Ruben Acuña Jr., MD Cervical Spine CT 10/05/16109 Signed Impressions: Service Date/Time: Wednesday, October 05, 2016 01:40 - CONCLUSION: 1. No fracture or dislocation. 2. Multilevel degenerative changes. Ruben Acuña Jr., MD Abdomen/Pelvis CT 10/05/16109 Signed Impressions: Service Date/Time: Wednesday, October 05, 2016 01:46 - CONCLUSION: 1. No acute trauma. 2. Rounded area of decreased density involving the pancreatic head. I cannot completely exclude pancreatic head mass. At some point MRI of the pancreas is suggested to further evaluate. 3. Focal area of poor enhancement involving the left kidney. This may relate to an area of parenchymal scarring. I cannot completely exclude a mass. This can be further assessed with MRI as well. Ruben Acuña Jr., MD Objective Remarks GENERAL: Calm, sedated. SKIN: Dry HEAD: Normocephalic. EYES: Pupils are 2 mm and reactive bilaterally. NECK: Supple, trachea midline. Orally intubated. CARDIOVASCULAR: Regular rate and rhythm without murmurs, gallops, or rubs. No JVD. RESPIRATORY: Breath sounds equal bilaterally. Clear, no wheezes or crackles. Good soha excursions. Tachypnea. GASTROINTESTINAL: Abdomen soft, non-tender, nondistended. BS active. No guarding. EXTREMITIES: Nonfocal clubbing cyanosis or edema, well perfused. NEURO: Opens eyes when light. COURTNEY. A/P Problem List: (1) 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 ICD Code: I60.8 Status: Acute (2) Intracranial hemorrhage ICD Code: I62.9 Status: Acute (3) Hypertension ICD Code: I10 Status: Acute Assessment and Plan Respiratory failure - Intubated for airway protection - No weaning until neurologically improved and stable - ABGs - DuoNeb's as needed for wheezing - Follow EtCO2 Subarachnoid bleed - Núñez Veliz 5 Lucas grade 3 - Most likely an aneurysm - CTA - Nimodipine. - Pravachol - SBP goal less than 140 - Daily TCD's - Basilar tip coiled. Hypertension - Nimodipine drip to keep SBP 140 -170 s/p coiling. - Labetalol when necessary. DVT GI prophylaxis - Teds SCDs - No pharmacological prophylaxis due to ICH - Protonix IV Bladder Spasms - Start Flomax -Urinary sepsis. Broad abx coverage started -Taper off vasopressors. Overall impression: Spontaneous subarachnoid hemorrhage, s/p coiling of basilar tip aneurysm. Critically ill for the next 5-10 days as we remain vigilant for vasospasm and control hemodynamics. BP control acceptable. Some peripheral edema accumulating. Resuscitated from septic state, remains critically ill with new JONH. Blood pressure control acceptable. Critical Care 33 mins Problem Qualifiers (1) Hypertension: Qualified Code: I10 - Essential hypertension Dave Barragan MD Oct 13, 2016 17:20
--- NOTE | 2016-10-13 22:28 | HHI.NSPN ---
History Chief Complaint: intubated and sedated Interval History 51-year-old male admitted with positive subarachnoid hemorrhage. Possible seizure activity. Intubated in the emergency room. 10/05/16: Endovascular coiling 10/07/16 rinse intubated and sedated. Ventriculostomy in place 10/09/16: Remains intubated and sedated. Increased agitation with attempts at sedation vacation Exam Results Vital Signs Date Time Temp Pulse Resp B/P Pulse Ox O2 Delivery O2 Flow Rate FiO2 10/13/16 20:34 95 45 10/13/16 18:00 71 10/13/16 16:00 98.5 20 164/67 Intake and Output 10/12/16 10/12/16 10/13/16 08:00 16:00 00:00 Intake Total 853 ml 1457 ml 1050 ml Output Total 2135 ml 3055 ml 2250 ml Balance -1282 ml -1598 ml -1200 ml Physical Examination Intubated and sedated. Respirations clear to auscultation Cardiac regular without murmur Abdomen soft, nondistended Ventricular catheter in place with drainage of slightly blood-tinged CSF. ICP 15 Pupils approximately 3 mm, nonreactive, slightly greater on the right side today. Mild corneal responses Minimal oculocephalic Minimal flexion deep pain upper extremities Lab, Micro, Other Results Laboratory Tests Test 10/13/16 04:05 White Blood Count 14.6 TH/MM3 Red Blood Count 3.37 MIL/MM3 Hemoglobin 9.9 GM/DL Hematocrit 30.7 % Mean Corpuscular Volume 91.3 FL Mean Corpuscular Hemoglobin 29.3 PG Mean Corpuscular Hemoglobin 32.1 % Concent Red Cell Distribution Width 13.5 % Platelet Count 142 TH/MM3 Mean Platelet Volume 9.5 FL Neutrophils (%) (Auto) 84.3 % Lymphocytes (%) (Auto) 4.3 % Monocytes (%) (Auto) 7.5 % Eosinophils (%) (Auto) 3.2 % Basophils (%) (Auto) 0.7 % Neutrophils # (Auto) 12.3 TH/MM3 Lymphocytes # (Auto) 0.6 TH/MM3 Monocytes # (Auto) 1.1 TH/MM3 Eosinophils # (Auto) 0.5 TH/MM3 Basophils # (Auto) 0.1 TH/MM3 CBC Comment DIFF FINAL Differential Comment Sodium Level 149 MEQ/L Potassium Level 3.8 MEQ/L Chloride Level 118 MEQ/L Carbon Dioxide Level 21.7 MEQ/L Anion Gap 9 MEQ/L Blood Urea Nitrogen 47 MG/DL Creatinine 1.55 MG/DL Estimat Glomerular Filtration 48 ML/MIN Rate Random Glucose 148 MG/DL Calcium Level 8.1 MG/DL Random Vancomycin Level 7.4 COMMENT Medical Decision Making Impression and Plan Impression: 1. Stable neurologic status following endovascular coiling for subarachnoid hemorrhage-ruptured basilar tip aneurysm.. 10/12/16 Transcranial Doppler negative for definite vasospasm Plan: maintenance of systolic blood pressure 130-170. Continue to wean ventriculostomy. Increase reservoir to 20 cm water today repeat CT AM to assess ventricular size Continuing Keppra due to probable seizure activity reported. Okay for Lovenox from neurosurgery standpoint Ulcer prophylaxis Okay to begin weaning sedation from neurosurgery standpoint Gino Mace MD Oct 13, 2016 22:28
[2016-10-14] VITALS (18 sets, daily range): BP systolic 136–188; BP diastolic 66–80; PULSE 62–82; RESP 18–22; TEMP 99.9–101; O2SAT 97–100
[2016-10-14] MEDS: SODIUM CHLOR 0.9% 1000 ML INJ 1,000 ML IV SCH ×3 (01:01→23:55)
[2016-10-14] MEDS: METOPROLOL TARTRATE 25 MG TAB PO SCH ×4 (02:06→20:17)
[2016-10-14] MEDS: AZTREONAM INJ 2,000 MG in SODIUM CHLORIDE 0.9% INJ 100 ML IV SCH ×3 (02:06→16:26)
[2016-10-14] MEDS: niCARdipine INJ 25 MG in SODIUM CHLOR 0.9% 250 ML INJ 250 ML IV SCH ×5 (02:06→23:07)
[2016-10-14] MEDS ORDERED: EPINEPHrine HCL (1:10,000) 1 MG/10 ML SYRINGE ONE (03:26)
[2016-10-14] MEDS ORDERED: ATROPINE SULFATE 1 MG/10 ML SYRINGE ONE (03:26)
[2016-10-14] MEDS ORDERED: LIDOCAINE HCL 2% 100 MG/5 ML SYRINGE ONE (03:27)
[2016-10-14] MEDS: metroNIDAZOLE 500 MG INJ 100 ML IV SCH ×4 (03:30→20:17)
[2016-10-14] MEDS: niMODipine 30 MG CAP PO SCH ×6 (03:30→23:55)
[2016-10-14] MEDS: DOCUSATE SODIUM 100 MG CAP G-TUBE SCH ×2 (03:30→16:26)
[2016-10-14] MEDS: ACETAMINOPHEN 325 MG TAB PO PRN ×3 (03:31→20:54)
[2016-10-14] MEDS: CHLORHEXIDINE GLUCONATE 2 % 1 PACK (2 CLOTHS) TOP SCH (03:31)
[2016-10-14] MEDS: fentaNYL 2,500 MCG/NS 250 ML IV SCH ×2 (03:34→16:28)
--- NOTE | 2016-10-14 05:20 | RADRPT ---
EXAM DATE/TIME: 10/14/2016 04:25 [facility] COMPARISON: CT BRAIN W/O CONTRAST, October 11, 2016, 10:17. INDICATIONS : Follow up subarachnoid hemorrhage RADIATION DOSE: 42.64 CTDIvol (mGy) MEDICAL HISTORY : Cerebrovascular disease. Hypertension. SURGICAL HISTORY : None. ENCOUNTER: Subsequent ACUITY: 2 weeks PAIN SCALE: Non-responsive LOCATION: cranial TECHNIQUE: Multiple contiguous axial images were obtained of the head. Using automated exposure control and adj ustment of the mA and/or kV according to patient size, radiation dose was kept as low as reasonably a chievable to obtain optimal diagnostic quality images. FINDINGS: Today's exam is compared to the prior study. The ventricular catheter is stable in position. Ventricl es are stable in size. There appears to be less subarachnoid hemorrhage on today's exam compared to t prior study. No significant mass effect or midline shift. There is intraventricular hemorrhage in the posterior horn of the lateral ventricles. This is stable compared to the prior study. The posteri or fossa stable. CONCLUSION: Improving subarachnoid hemorrhage compared to the prior exam. Otherwise, no significant changes julia red to the prior study. Selwyn Bui MD on October 14, 2016 at 5:16 Board Certified Radiologist. This report was verified electronically.
[2016-10-14 05:41] LABS: AUTOMATED NEUTROPHIL # 11.7 TH/MM3 (1.8-7.7); BASOPHIL % 0.3 % (0.0-2.0); EOSINOPHIL # 0.3 TH/MM3 (0-0.4); EOSINOPHIL % 2.1 % (0.0-4.0); HEMATOCRIT 29.3 % (39.0-51.0); HEMOGLOBIN 9.8 GM/DL (13.0-17.0); LYMPH % 4.7 % (9.0-44.0); LYMPHOCYTE # 0.6 TH/MM3 (1.0-4.8); MEAN CELL VOLUME 89.7 FL (80.0-100.0); MEAN CORPUSCULAR HEMOGLOBIN 30.1 PG (27.0-34.0); MEAN CORPUSCULAR HGB CONC 33.6 % (32.0-36.0); MEAN PLATELET VOLUME 9.8 FL (7.0-11.0); MONOCYTE # 1.1 TH/MM3 (0-0.9); NEUT % 84.9 % (16.0-70.0); PLATELET COUNT 166 TH/MM3 (150-450); RED BLOOD COUNT 3.26 MIL/MM3 (4.50-5.90); RED CELL DISTRIBUTION WIDTH 13.1 % (11.6-17.2); WHITE BLOOD COUNT 13.8 TH/MM3 (4.0-11.0)
[2016-10-14 06:14] LABS: BICARBONATE 23.4 MEQ/L (21.0-32.0); CALCIUM 7.7 MG/DL (8.5-10.1); CREATININE 1.15 MG/DL (0.60-1.30); RANDOM VANCOMYCIN 7.4 COMMENT
--- NOTE | 2016-10-14 09:20 | HHI.CCPN ---
Subjective Remarks/Hospital Course 51 year old male presents with being brought in as a trauma alert due to a head injury with altered mental status and a diminished GCS. The patient was in the bathroom and fell and hit his head. This was an unwitnessed fall. According to the patient's the patient had been unresponsive for approximately 15 minutes by the time ambulance services arrived. When they arrived the patient was noted to be a GCS of 14, however his mentation would wax and wane and go down as low as 3 again. On arrival to the emergency department he felt extremely nauseated. The CT of the head revealed diffuse subarachnoid bleed. 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 CT head today with some ventricular blood. ICP controlled and patient tolerates lightening of sedation. Volume loaded to maintain SBP > 130s. Opens eyes to voice. 10/07: BP controlled. TCDs to be done today. 10/08: BP control good. Well hydrated. No TCD evidence of spasm. 10/09: TCD today pending. CPP good. No seizure activity. Remains well hydrated. 10/10: TCDs no vasospasm. Remains well hydrated, well perfused. Some peripheral edema as expected. 10/11: Hemodynamics good. Bladder spasm continues. Try Flomax - an alpha kendall , will not impair cerebral vessels. 10/12: Episode of sepsis last night from obstructed Paul, JONH evident. Much improved now. 10/13: JONH improving. Narrow abx to GNR. 10/14: Aztreonam started for sputum, urine. CT Head acceptable. Objective Vital Signs Date Time Temp Pulse Resp B/P Pulse Ox O2 Delivery O2 Flow Rate FiO2 10/14/16 06:00 66 10/14/16 04:00 100 100 10/14/16 04:00 101.0 20 158/66 Intake and Output 10/13/16 10/13/16 10/14/16 08:00 16:00 00:00 Intake Total 924 ml 1676 ml 1654 ml Output Total 2401 ml 2450 ml 2201 ml Balance -1477 ml -774 ml -547 ml Result Diagram: 10/14/16 0515 10/14/16 0515 Other Results Microbiology Date/Time Procedure Status Source Growth 10/12/16 01:45 Urine Culture - Final Complete Urine Catheterized Urine Enterobacter Cloacae 10/12/16 04:00 Gram Stain - Final Complete Sputum Endotracheal 10/12/16 04:00 Sputum Culture - Final Complete Enterobacter Cloacae Imaging Last 24 hours Impressions Pelvis X-Ray 10/05/16109 Signed Impressions: Service Date/Time: Wednesday, October 05, 2016 01:22 - CONCLUSION: Unremarkable examination of the pelvis. Ruben Acuña Jr., MD Head CT 10/05/16109 Signed Impressions: Service Date/Time: Wednesday, October 05, 2016 01:38 - CONCLUSION: Diffuse subarachnoid hemorrhage. Ruben Acuña Jr., MD Chest X-Ray 10/05/16109 Signed Impressions: Service Date/Time: Wednesday, October 05, 2016 01:22 - CONCLUSION: No acute disease. Ruben Acuña Jr., MD Chest CT 10/05/16109 Signed Impressions: Service Date/Time: Wednesday, October 05, 2016 01:46 - CONCLUSION: 1. No acute intrathoracic abnormality. 2. Bibasilar atelectasis. 3. Cardiomegaly. 4. Prior granulomatous disease. Ruben Acuña Jr., MD Cervical Spine CT 10/05/16109 Signed Impressions: Service Date/Time: Wednesday, October 05, 2016 01:40 - CONCLUSION: 1. No fracture or dislocation. 2. Multilevel degenerative changes. Ruben Acuña Jr., MD Abdomen/Pelvis CT 10/05/16109 Signed Impressions: Service Date/Time: Wednesday, October 05, 2016 01:46 - CONCLUSION: 1. No acute trauma. 2. Rounded area of decreased density involving the pancreatic head. I cannot completely exclude pancreatic head mass. At some point MRI of the pancreas is suggested to further evaluate. 3. Focal area of poor enhancement involving the left kidney. This may relate to an area of parenchymal scarring. I cannot completely exclude a mass. This can be further assessed with MRI as well. Ruben Acuña Jr., MD Objective Remarks GENERAL: Calm, sedated. SKIN: Dry HEAD: Normocephalic. EYES: Pupils are 2 mm and reactive bilaterally. NECK: Supple, trachea midline. Orally intubated. CARDIOVASCULAR: Regular rate and rhythm without murmurs, gallops, or rubs. No JVD. RESPIRATORY: Breath sounds equal bilaterally. Clear, no wheezes or crackles. Good soha excursions. Tachypnea. GASTROINTESTINAL: Abdomen soft, non-tender, nondistended. BS active. No guarding. EXTREMITIES: Nonfocal clubbing cyanosis or edema, well perfused. NEURO: Opens eyes when light. COURTNEY. A/P Problem List: (1) 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 ICD Code: I60.8 Status: Acute (2) Intracranial hemorrhage ICD Code: I62.9 Status: Acute (3) Hypertension ICD Code: I10 Status: Acute Assessment and Plan Respiratory failure - Intubated for airway protection - No weaning until neurologically improved and stable - ABGs - DuoNeb's as needed for wheezing - Follow EtCO2 Subarachnoid bleed - Núñez Veliz 5 Lucas grade 3 - Most likely an aneurysm - CTA - Nimodipine. - Pravachol - SBP goal less than 140 - Daily TCD's - Basilar tip coiled. Hypertension - Nimodipine drip to keep SBP 140 -170 s/p coiling. - Labetalol when necessary. DVT GI prophylaxis - Teds SCDs - No pharmacological prophylaxis due to ICH - Protonix IV Bladder Spasms - Start Flomax -Urinary sepsis. Broad abx coverage started -Taper off vasopressors. Overall impression: Spontaneous subarachnoid hemorrhage, s/p coiling of basilar tip aneurysm. Critically ill as we remain vigilant for vasospasm and control hemodynamics. BP control acceptable. Some peripheral edema accumulating. Resuscitated from septic state, remains critically ill with new JONH. Blood pressure control acceptable. Urine and lungs similar organism, good coverage. Critical Care 35 mins Problem Qualifiers (1) Hypertension: Qualified Code: I10 - Essential hypertension Dave Barragan MD Oct 14, 2016 09:20
[2016-10-14] MEDS: PANTOPRAZOLE SODIUM 40 MG VIAL IV SCH (09:37)
[2016-10-14] MEDS: PRAVASTATIN SOD 40 MG TAB PO SCH (09:37)
[2016-10-14] MEDS: LACTULOSE SYRUP 20 GM/30 ML CUP PO SCH (09:37)
[2016-10-14] MEDS: SODIUM CHLORIDE 0.9% FLUSH 10 ML FLUSH IV FLUSH SCH (09:38)
[2016-10-14] MEDS: levETIRAcetam INJ 500 MG in SODIUM CHLORIDE 0.9% INJ 100 ML IV SCH ×2 (09:38→20:17)
[2016-10-14] MEDS: TAMSULOSIN HCL 0.4 MG CAP PO SCH ×2 (09:38→20:17)
[2016-10-14] MEDS: POLYETHYLENE GLYCOL 17 GM PKG PO SCH (09:38)
[2016-10-14] MEDS: ARTIFICIAL TEARS OPTH SOLN 15 ML BTL EACH EYE SCH ×3 (09:38→16:26)
--- NOTE | 2016-10-14 11:36 | RADRPT ---
EXAM DATE/TIME: 10/14/2016 07:43 [facility] COMPARISON: US TRANSCRANIAL DOPPLER COMPLETE, October 13, 2016, 7:48. INDICATIONS : Subarachnoid hemorrhage. MEDICAL HISTORY : Hypertension. Pancreatitis. TIA. SURGICAL HISTORY : Ventriculostomy drain. Endovascular coiling. ENCOUNTER: Sequela ACUITY: 1 week PAIN SCORE: Nonresponsive. LOCATION: Bilateral cranial Current Exam: Oct 14, 2016 [place] Ratio: Right: 2.6 Left: 2.6 Gregorio Ratio: Right: 1.6 Left: 1.7 Previous Exam: Oct 13, 2016 [place] Ratio: Right: 1.7 Left: 2.5 Gregorio Ratio: Right: 1.2 Left: 1.6 FINDINGS: Examination performed at bedside. Real-time ultrasound with the assistance of color and spectral Dop pler was utilized to evaluate the intracerebral circulation. Time-averaged maximal velocities are ca lculated in cm/s. No significant interval change is noted. CONCLUSION: No evidence of significant change or developing vasospasm. Leonel Alva MD on October 14, 2016 at 11:33 Board Certified Radiologist. This report was verified electronically.
[2016-10-14] MEDS: LABETALOL HCL 100 MG/20 ML VIAL IV PUSH PRN (14:33)
[2016-10-14] MEDS ORDERED: MAGNESIUM SULFATE INJ 4 GM in SODIUM CHLORIDE 0.9% INJ 92 ML IV PRN (16:00)
[2016-10-14] MEDS ORDERED: SODIUM PHOSPHATE INJ 30 MMOL in SODIUM CHLOR 0.9% 250 ML INJ 240 ML IV PRN (16:00)
[2016-10-14] MEDS ORDERED: POTASSIUM PHOSPHATE INJ 30 MMOL in SODIUM CHLOR 0.9% 250 ML INJ 250 ML IV PRN (16:00)
[2016-10-14] MEDS ORDERED: MAGNESIUM SULFATE INJ 2 GM in SODIUM CHLORIDE 0.9% INJ 96 ML IV PRN (16:00)
[2016-10-14] MEDS ORDERED: MAGNESIUM OXIDE 400 MG TAB PO PRN (16:00)
[2016-10-14] MEDS: POTASSIUM CHLOR 20 MEQ PREMIX 100 ML IV PRN ×2 (16:49→16:50)
--- NOTE | 2016-10-14 23:59 | HHI.NSPN ---
History Chief Complaint: intubated and sedated Interval History 51-year-old male admitted with positive subarachnoid hemorrhage. Possible seizure activity. Intubated in the emergency room. 10/05/16: Endovascular coiling 10/07/16 rinse intubated and sedated. Ventriculostomy in place 10/09/16: Remains intubated and sedated. Increased agitation with attempts at sedation vacation Exam Results Vital Signs Date Time Temp Pulse Resp B/P Pulse Ox O2 Delivery O2 Flow Rate FiO2 10/14/16 22:27 97 40 10/14/16 22:00 67 10/14/16 20:00 101.0 22 176/70 Intake and Output 10/13/16 10/13/16 10/14/16 08:00 16:00 00:00 Intake Total 924 ml 1676 ml 1654 ml Output Total 2401 ml 2450 ml 2201 ml Balance -1477 ml -774 ml -547 ml Physical Examination Intubated and sedated. Respirations clear to auscultation Cardiac regular without murmur Abdomen soft, nondistended Ventricular catheter in place with drainage of slightly blood-tinged CSF. ICP 15 No eye opening to deep pain or voice or spontaneous Pupils approximately 3 mm, nonreactive, slightly greater on the right side today. Mild corneal responses Minimal oculocephalic Minimal flexion deep pain upper extremities Medical Decision Making Impression and Plan Impression: 1. Stable neurologic status following endovascular coiling for subarachnoid hemorrhage-ruptured basilar tip aneurysm.. 10/12/16 Transcranial Doppler negative for definite vasospasm Plan: maintenance of systolic blood pressure 130-170. Continue to wean ventriculostomy. Ventriculostomy close to reservoir today. repeat CT AM to assess ventricular size Plan discontinuation ventriculostomy drain over weekend if CT scan head and ICPs satisfactory. Continuing Keppra due to probable seizure activity reported. Okay for Lovenox from neurosurgery standpoint Ulcer prophylaxis Okay to begin weaning sedation from neurosurgery standpoint Gino Mace MD Oct 14, 2016 23:59
[2016-10-15] VITALS (18 sets, daily range): BP systolic 141–210; BP diastolic 61–87; PULSE 60–91; RESP 17–25; TEMP 98.2–101.4; O2SAT 95–100
[2016-10-15] MEDS: niCARdipine INJ 25 MG in SODIUM CHLOR 0.9% 250 ML INJ 250 ML IV SCH ×8 (02:20→22:55)
[2016-10-15] MEDS: AZTREONAM INJ 2,000 MG in SODIUM CHLORIDE 0.9% INJ 100 ML IV SCH ×3 (02:20→17:29)
[2016-10-15] MEDS: METOPROLOL TARTRATE 25 MG TAB PO SCH ×4 (02:20→20:04)
[2016-10-15] MEDS: metroNIDAZOLE 500 MG INJ 100 ML IV SCH ×4 (02:20→20:04)
[2016-10-15] MEDS: CHLORHEXIDINE GLUCONATE 2 % 1 PACK (2 CLOTHS) TOP SCH (04:00)
[2016-10-15] MEDS: DOCUSATE SODIUM 100 MG CAP G-TUBE SCH ×2 (04:45→12:49)
[2016-10-15] MEDS: niMODipine 30 MG CAP PO SCH ×6 (04:46→23:22)
[2016-10-15 05:33] LABS: AUTOMATED NEUTROPHIL # 13.1 TH/MM3 (1.8-7.7); BASOPHIL % 0.3 % (0.0-2.0); EOSINOPHIL # 0.1 TH/MM3 (0-0.4); EOSINOPHIL % 0.7 % (0.0-4.0); HEMATOCRIT 31.3 % (39.0-51.0); HEMOGLOBIN 10.2 GM/DL (13.0-17.0); LYMPH % 6.5 % (9.0-44.0); MEAN CELL VOLUME 89.9 FL (80.0-100.0); MEAN CORPUSCULAR HEMOGLOBIN 29.4 PG (27.0-34.0); MEAN CORPUSCULAR HGB CONC 32.7 % (32.0-36.0); MEAN PLATELET VOLUME 9.9 FL (7.0-11.0); MONO % 8.6 % (0.0-8.0); MONOCYTE # 1.3 TH/MM3 (0-0.9); NEUT % 83.9 % (16.0-70.0); PLATELET COUNT 175 TH/MM3 (150-450); RED BLOOD COUNT 3.48 MIL/MM3 (4.50-5.90); RED CELL DISTRIBUTION WIDTH 13.3 % (11.6-17.2); WHITE BLOOD COUNT 15.6 TH/MM3 (4.0-11.0)
[2016-10-15 05:53] LABS: CALCIUM 7.5 MG/DL (8.5-10.1); CREATININE 1.08 MG/DL (0.60-1.30)
[2016-10-15] MEDS: POTASSIUM CHLOR 20 MEQ PREMIX 100 ML IV PRN ×3 (09:42→17:29)
[2016-10-15] MEDS: levETIRAcetam INJ 500 MG in SODIUM CHLORIDE 0.9% INJ 100 ML IV SCH ×2 (09:42→20:04)
[2016-10-15] MEDS: PANTOPRAZOLE SODIUM 40 MG VIAL IV SCH (09:43)
[2016-10-15] MEDS: POLYETHYLENE GLYCOL 17 GM PKG PO SCH (09:43)
[2016-10-15] MEDS: ARTIFICIAL TEARS OPTH SOLN 15 ML BTL EACH EYE SCH ×3 (09:44→17:29)
[2016-10-15] MEDS: TAMSULOSIN HCL 0.4 MG CAP PO SCH ×2 (09:44→20:04)
[2016-10-15] MEDS: PRAVASTATIN SOD 40 MG TAB PO SCH (09:44)
[2016-10-15] MEDS: LACTULOSE SYRUP 20 GM/30 ML CUP PO SCH (09:44)
[2016-10-15] MEDS: SODIUM CHLORIDE 0.9% FLUSH 10 ML FLUSH IV FLUSH SCH (09:45)
--- NOTE | 2016-10-15 09:52 | HHI.NSPN ---
(Kathy Blanton) Note Status Status: Progress Note (Kathy Blanton) Interval History Interval History 51-year-old male admitted with positive subarachnoid hemorrhage. Possible seizure activity. Intubated in the emergency room. He underwent endovascular coiling on 10/05/16, a ventriculostomy is placed. Ventriculostomy being challenged, now clamped. Follow up CT Head ordered for tomorrow. Intubated and mildly sedated on fentanyl. ICPs remains < 15. (Kathy Blanton) Labs, Micro, & Vital Signs Results Date Time Temp Pulse Resp B/P Pulse Ox O2 Delivery O2 Flow Rate FiO2 10/15/16 09:05 40 10/15/16 08:19 95 40 10/15/16 06:00 60 10/15/16 04:00 99.9 64 22 154/68 97 10/15/16 04:00 64 10/15/16 04:00 40 10/15/16 03:47 98 40 10/15/16 02:00 86 10/15/16 01:10 99 40 10/15/16 00:00 101.4 68 25 168/68 98 10/15/16 00:00 68 10/15/16 00:00 40 10/14/16 22:27 97 40 10/14/16 22:00 67 10/14/16 20:00 40 10/14/16 20:00 101.0 72 22 176/70 99 10/14/16 20:00 72 10/14/16 18:00 62 10/14/16 17:12 100 40 10/14/16 16:00 100.7 79 20 188/80 99 10/14/16 16:00 40 10/14/16 16:00 79 10/14/16 14:00 67 10/14/16 12:29 45 10/14/16 12:26 98 45 10/14/16 12:23 98 45 10/14/16 12:20 40 10/14/16 12:00 71 10/14/16 12:00 100.1 71 18 136/68 97 10/14/16 12:00 45 10/14/16 10:00 78 10/15/16 07:00 Intake Total 4043 ml Output Total 6075.0 ml Balance -2032.0 ml Constitutional Vital Signs Date Time Temp Pulse Resp B/P Pulse Ox O2 Delivery O2 Flow Rate FiO2 10/15/16 09:05 40 10/15/16 08:19 95 40 10/15/16 06:00 60 10/15/16 04:00 99.9 64 22 154/68 97 10/15/16 04:00 64 10/15/16 04:00 40 10/15/16 03:47 98 40 10/15/16 02:00 86 10/15/16 01:10 99 40 10/15/16 00:00 101.4 68 25 168/68 98 10/15/16 00:00 68 10/15/16 00:00 40 10/14/16 22:27 97 40 10/14/16 22:00 67 10/14/16 20:00 40 10/14/16 20:00 101.0 72 22 176/70 99 10/14/16 20:00 72 10/14/16 18:00 62 10/14/16 17:12 100 40 10/14/16 16:00 100.7 79 20 188/80 99 10/14/16 16:00 40 10/14/16 16:00 79 10/14/16 14:00 67 10/14/16 12:29 45 10/14/16 12:26 98 45 10/14/16 12:23 98 45 10/14/16 12:20 40 10/14/16 12:00 71 10/14/16 12:00 100.1 71 18 136/68 97 10/14/16 12:00 45 10/14/16 10:00 78 10/15/16 07:00 Intake Total 4043 ml Output Total 6075.0 ml Balance -2032.0 ml (Kathy Blanton) Review of Systems/Exam Exam Intubated and mildly sedated. No eye opening to deep pain or voice or spontaneous Ventricular catheter in place, EVD clamped, slightly blood-tinged CSF seen in reservoir bag. ICPs 13 CN: Pupils 4 mm reactive b/l Mild corneal responses Motor: Minimal withdrawal in both feet to local stimuli, no response to UE b/l, nursing reports saw brief 3/5 right arm movement. Cerebellar: cannot assess. (Kathy Blanton) Medications Current Medications Current Medications Medications (Trade) Dose Ordered Sig/Nava Route PRN Reason Start Time Stop Time Status Last Admin Dose Admin Sodium Chloride (NS 1000 ml Inj) 1,000 ml @ 84 mls/hr [id number] IV 10/05/16 02:31 10/14/16 23:55 Acetaminophen (Tylenol) 650 mg Q6H PRN PO PAIN 1-10 AND/OR FEVER >101F 10/05/16 02:45 10/14/16 20:54 Morphine Sulfate (Morphine Inj) 2 mg Q2H PRN IV PAIN SCALE 6 TO 10 10/05/16 02:45 10/11/16 04:59 Pantoprazole Sodium (Protonix Inj) 40 mg DAILY IV 10/05/16 09:00 10/15/16 09:43 Lorazepam (Ativan Inj) 2 mg Q4H PRN IV Agitation/Sedation 10/05/16 02:45 10/11/16 12:27 Artificial Tears (Tears Naturale Opth Soln) 1 drop TID EACH EYE 10/05/16 09:00 10/15/16 09:44 Ondansetron HCl (Zofran Inj) 4 mg Q6H PRN IV NAUSEA OR VOMITING 10/05/16 02:45 Metoclopramide HCl (Reglan Inj) 10 mg Q6H PRN IV NAUSEA OR VOMITING 10/05/16 02:45 10/13/16 09:48 Docusate Sodium (Colace) 100 mg Q12H G-TUBE 10/05/16 04:00 10/15/16 04:45 Miscellaneous Information 1 [id number] XX 10/05/16 02:45 10/05/16 02:45 Chlorhexidine Gluconate (Chlorhexidine 2% Cloth) Taper DAILY@04 TOP 10/05/16 04:00 10/01/17 03:59 10/09/16 04:58 Chlorhexidine Gluconate 3 pack 3 pack UNSCH PRN TOP HYGIENIC CARE 10/05/16 02:45 Propofol 100 ml @ 0 mls/hr TITRATE IV 10/05/16 02:45 10/13/16 16:58 Levetriacetam 500 mg/Sodium Chloride 105 ml @ 420 mls/hr Q12HR IV 10/05/16 09:00 10/15/16 09:42 Nicardipine HCl/ Sodium Chloride (Cardene Inj/NS 250 ml Inj) 260 ml @ 0 mls/hr TITRATE IV 10/05/16 02:45 10/15/16 09:43 Labetalol HCl (Trandate Inj) 10 mg Q4H PRN IV PUSH SBP>140, DBP>90 10/05/16 02:45 10/14/16 14:33 Nimodipine (Nimotop) 60 mg Q4HR PO 10/05/16 04:00 10/15/16 09:44 Pravastatin Sodium 40 mg 40 mg DAILY PO 10/05/16 09:00 10/15/16 09:44 Fentanyl Citrate (fentaNYL DRIP) 250 ml @ 0 mls/hr TITRATE IV 10/05/16 22:15 10/14/16 16:28 Sodium Chloride (NS Flush) See Protocol DAILY IV FLUSH 10/07/16 09:00 10/15/16 09:45 Sodium Chloride (NS Flush) See Protocol UNSCH PRN IV FLUSH SEE PROTOCOL TABLE 10/06/16 12:00 Heparin Sodium (Porcine) (Heparin Central Flush) See Protocol DAILY IV FLUSH 10/07/16 09:00 10/13/16 09:00 Heparin Sodium (Porcine) (Heparin Central Flush) See Protocol UNSCH PRN IV FLUSH SEE PROTOCOL TABLE 10/06/16 12:00 10/11/16 08:00 Sodium Chloride UNSCH PRN IV FLUSH SEE PROTOCOL TABLE 10/06/16 12:00 Norepinephrine Bitartrate/Sodium Chloride (Levophed Inj/NS 250 ml Inj) 254 ml @ 0 mls/hr TITRATE IV 10/06/16 18:00 10/06/16 21:54 Clonidine (Catapres) 0.1 mg Q8H PRN NG SBP>170, DBP>90 10/09/16 16:15 10/11/16 12:20 Polyethylene Glycol (Miralax) 17 gm DAILY PO 10/10/16 14:00 10/15/16 09:43 Lactulose (Lactulose Liq) 30 ml DAILY PO 10/10/16 14:00 10/15/16 09:44 Metoprolol Tartrate 25 mg 25 mg Q6H PO 10/10/16 14:00 10/15/16 09:44 Labetalol HCl/ Sodium Chloride (Trandate Inj/NS Inj) 250 ml @ 0 mls/hr TITRATE IV 10/10/16 17:00 Tamsulosin HCl 0.4 mg 0.4 mg Q12HR PO 10/11/16 09:00 10/15/16 09:44 Aztreonam 2000 mg/ Sodium Chloride 100 ml @ 200 mls/hr Q8H IV 10/12/16 02:00 10/15/16 02:20 Metronidazole 100 ml @ 100 mls/hr Q6H IV 10/12/16 03:00 10/15/16 09:43 Potassium Chloride 100 ml @ 50 mls/hr Q2H PRN IV For Potassium 2.8 - 3.2 mEq/L 10/14/16 16:00 Potassium Chloride (KCl 20 Meq Premix Inj) 100 ml @ 50 mls/hr Q2H PRN IV For Potassium 2.8 - 3.2 mEq/L 10/14/16 16:00 10/15/16 09:42 Potassium Bicarb/ Potassium Chloride 50 meq 50 meq UNSCH PRN PO For Potassium 3.3 - 3.5 mEq/L 10/14/16 16:00 Potassium Chloride 100 ml @ 25 mls/hr UNSCH PRN IV For Potassium 3.3 - 3.5 mEq/L 10/14/16 16:00 Potassium Chloride 100 ml @ 50 mls/hr Q2H PRN IV For Potassium 3.3 - 3.5 mEq/L 10/14/16 16:00 Magnesium Sulfate/ Sodium Chloride (Magnesium Sulfate Inj/NS Inj) 100 ml @ 50 mls/hr UNSCH PRN IV For Magnesium 0.9 - 1.1 mg/dL 10/14/16 16:00 Magnesium Oxide 800 mg 800 mg UNSCH PRN PO For Magnesium 1.2 - 1.6 mg/dL 10/14/16 16:00 Magnesium Sulfate/ Sodium Chloride (Magnesium Sulfate Inj/NS Inj) 100 ml @ 50 mls/hr UNSCH PRN IV For Magnesium 1.2 - 1.6 mg/dL 10/14/16 16:00 Potassium Phosphate 2000 mg 2,000 mg Q4H PRN PO For Phosphorus < 2.5 mg/dL 10/14/16 16:00 Sodium Phosphate/ Sodium Chloride (Sodium Phosphate Inj/NS 250 ml Inj) 250 ml @ 42 mls/hr UNSCH PRN IV For Phosphorus < 2.5 mg/dL 10/14/16 16:00 Potassium Phosphate 2000 mg 2,000 mg UNSCH PRN PO/TUBE SEE LABEL COMMENTS 10/14/16 16:00 Potassium Phosphate/Sodium Chloride (Potassium Phosphate Inj/NS 250 ml Inj) 260 ml @ 42 mls/hr UNSCH PRN IV SEE LABEL COMMENTS 10/14/16 16:00 (Kathy Blanton) Medical Decision Making MDM Remarks 51 y/o male presented 10/05/16 with SAH, basilar tip aneurysm s/p endovascular coiling, ventriculostomy drain placement (Kathy Blanton) Plan Plan Remarks EVD clamped with ICP monitoring, f/u CT Brain tomorrow am, if stable will dc drain cont serial neuro checks critical care mgt f/u TCDs cont Nimodipine (Kathy Blanton) Attending Statement TCD showed vasospasm I have ordered an emergency cerebral angiography with angioplasty. If this is not done, he will have a stroke I have discussed with with the neuroradiologist enterprise applications manager The exam, history, and the medical decision-making described in the above note were completed with the assistance of the mid-level provider. I reviewed and agree with the findings presented. I attest that I had a [id number] encounter with the patient on the same day, and personally performed and documented my assessment and findings in the medical record. (Mj Muhammad MD) Kathy Blanton Oct 15, 2016 09:52 Mj Muhammad MD Oct 15, 2016 12:09
--- NOTE | 2016-10-15 10:07 | HHI.CCPN ---
Subjective Remarks/Hospital Course 51 year old male presents with being brought in as a trauma alert due to a head injury with altered mental status and a diminished GCS. The patient was in the bathroom and fell and hit his head. This was an unwitnessed fall. According to the patient's the patient had been unresponsive for approximately 15 minutes by the time ambulance services arrived. When they arrived the patient was noted to be a GCS of 14, however his mentation would wax and wane and go down as low as 3 again. On arrival to the emergency department he felt extremely nauseated. The CT of the head revealed diffuse subarachnoid bleed. 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 CT head today with some ventricular blood. ICP controlled and patient tolerates lightening of sedation. Volume loaded to maintain SBP > 130s. Opens eyes to voice. 10/07: BP controlled. TCDs to be done today. 10/08: BP control good. Well hydrated. No TCD evidence of spasm. 10/09: TCD today pending. CPP good. No seizure activity. Remains well hydrated. 10/10: TCDs no vasospasm. Remains well hydrated, well perfused. Some peripheral edema as expected. 10/11: Hemodynamics good. Bladder spasm continues. Try Flomax - an alpha kendall , will not impair cerebral vessels. 10/12: Episode of sepsis last night from obstructed Guzman, JONH evident. Much improved now. 10/13: JONH improving. Narrow abx to GNR. 10/14: Aztreonam started for sputum, urine. CT Head acceptable. 10/15: No change in neuro status. BP control good. Objective Vital Signs Date Time Temp Pulse Resp B/P Pulse Ox O2 Delivery O2 Flow Rate FiO2 10/15/16 09:05 40 10/15/16 08:19 95 10/15/16 06:00 60 10/15/16 04:00 99.9 22 154/68 Intake and Output 10/14/16 10/14/16 10/15/16 08:00 16:00 00:00 Intake Total 1064 ml 1148 ml 1359 ml Output Total 1951.0 ml 1650.0 ml 2325.0 ml Balance -887.0 ml -502.0 ml -966.0 ml Result Diagram: 10/15/16 0500 10/15/16 0500 Imaging Last 24 hours Impressions Pelvis X-Ray 10/05/16109 Signed Impressions: Service Date/Time: Wednesday, October 05, 2016 01:22 - CONCLUSION: Unremarkable examination of the pelvis. Ruben Acuña Jr., MD Head CT 10/05/16109 Signed Impressions: Service Date/Time: Wednesday, October 05, 2016 01:38 - CONCLUSION: Diffuse subarachnoid hemorrhage. Ruben Acuña Jr., MD Chest X-Ray 10/05/16109 Signed Impressions: Service Date/Time: Wednesday, October 05, 2016 01:22 - CONCLUSION: No acute disease. Ruben Acuña Jr., MD Chest CT 10/05/16109 Signed Impressions: Service Date/Time: Wednesday, October 05, 2016 01:46 - CONCLUSION: 1. No acute intrathoracic abnormality. 2. Bibasilar atelectasis. 3. Cardiomegaly. 4. Prior granulomatous disease. Ruben Acuña Jr., MD Cervical Spine CT 10/05/16109 Signed Impressions: Service Date/Time: Wednesday, October 05, 2016 01:40 - CONCLUSION: 1. No fracture or dislocation. 2. Multilevel degenerative changes. Ruben Acuña Jr., MD Abdomen/Pelvis CT 10/05/16109 Signed Impressions: Service Date/Time: Wednesday, October 05, 2016 01:46 - CONCLUSION: 1. No acute trauma. 2. Rounded area of decreased density involving the pancreatic head. I cannot completely exclude pancreatic head mass. At some point MRI of the pancreas is suggested to further evaluate. 3. Focal area of poor enhancement involving the left kidney. This may relate to an area of parenchymal scarring. I cannot completely exclude a mass. This can be further assessed with MRI as well. Ruben Acuña Jr., MD Objective Remarks GENERAL: Calm, sedated. SKIN: Dry HEAD: Normocephalic. EYES: Pupils are 2 mm and reactive bilaterally. NECK: Supple, trachea midline. Orally intubated. CARDIOVASCULAR: Regular rate and rhythm without murmurs, gallops, or rubs. No JVD. RESPIRATORY: Breath sounds equal bilaterally. Clear, no wheezes or crackles. Good soha excursions. Tachypnea. GASTROINTESTINAL: Abdomen soft, non-tender, nondistended. BS active. No guarding. EXTREMITIES: Nonfocal clubbing cyanosis or edema, well perfused. NEURO: Opens eyes when light. COURTNEY. A/P Problem List: (1) 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 ICD Code: I60.8 Status: Acute (2) Intracranial hemorrhage ICD Code: I62.9 Status: Acute (3) Hypertension ICD Code: I10 Status: Acute Assessment and Plan Respiratory failure - Intubated for airway protection - No weaning until neurologically improved and stable - ABGs - DuoNeb's as needed for wheezing - D/C EtCO2 Subarachnoid bleed - Núñez Veliz 5 Lucas grade 3 - Most likely an aneurysm - CTA - Nimodipine. - Pravachol - SBP goal less than 140 - Daily TCD's - Basilar tip coiled. Hypertension - Nimodipine drip to keep SBP 140 -170 s/p coiling. - Labetalol when necessary. DVT GI prophylaxis - Teds SCDs - No pharmacological prophylaxis due to ICH - Protonix IV Bladder Spasms - Start Flomax -Urinary sepsis. Broad abx coverage started -Taper off vasopressors. Overall impression: Spontaneous subarachnoid hemorrhage, s/p coiling of basilar tip aneurysm. Critically ill as we remain vigilant for vasospasm and control hemodynamics. BP control acceptable. Some peripheral edema accumulating. Resuscitated from septic state 3 days ago after guzman obstructed, remains critically ill with new JONH, now improving. Blood pressure control acceptable. Urine and lungs similar organism, good coverage. Critical Care 38 mins Problem Qualifiers (1) Hypertension: Qualified Code: I10 - Essential hypertension Dave Barragan MD Oct 15, 2016 10:07
--- NOTE | 2016-10-15 11:30 | RADRPT ---
EXAM DATE/TIME: 10/15/2016 07:43 [facility] COMPARISON: No previous studies available for comparison. INDICATIONS : Subarachnoid hemorrhage. MEDICAL HISTORY : Hypertension. Pancreatitis. TIA. SURGICAL HISTORY : Ventriculostomy drain. Endovascular coiling. ENCOUNTER: Sequela ACUITY: 1 week PAIN SCORE: Nonresponsive. LOCATION: Bilateral cranial Current Exam: Oct 15, 2016 [place] Ratio: Right: 2.4 Left: 3.0 Gregorio Ratio: Right: 1.5 Left: 1.9 Previous Exam: Oct 14, 2016 [place] Ratio: Right: 2.5 Left: 2.6 Gregorio Ratio: Right: 1.6 Left: 1.7 FINDINGS: Examination performed at bedside. Real-time ultrasound with the assistance of color and spectral Dop pler was utilized to evaluate the intracerebral circulation. Time-averaged maximal velocities are ca lculated in cm/s. Compared to the study from one day ago there is mild increase in left MCA Lindegaard ratio, however t his ratio is less as compared to the studies from 2 and 3 days ago. It is of the borderline significa nt for mild spasm. CONCLUSION: Borderline mild spasm involving the left MCA not present on the study from one day ago. Rosemarie Sagastume MD on October 15, 2016 at 11:15 Board Certified Radiologist. This report was verified electronically.
[2016-10-15] MEDS: ACETAMINOPHEN 325 MG TAB PO PRN (11:51)
[2016-10-15] MEDS: SODIUM CHLOR 0.9% 1000 ML INJ 1,000 ML IV SCH (12:46)
[2016-10-15] MEDS ORDERED: VERAPAMIL HCL 5 MG/2 ML VIAL ONE ×2 (12:55→13:33)
--- NOTE | 2016-10-15 13:45 | PD.RAD ---
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 Post Procedure Diagnosis: (1) 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 Procedure Date: Oct 15, 2016 Supervising Radiologist: Leonel Alva Proceduralist/Assist: Marta Connell, RT(R)(CV), Cynthia Singer RT(R)() Anesthesia: Local Plan of Activity Patient to Unit: Critical Care Patient Condition: Poor See PACS Report for procedural detail/treatment Vascular-Arterial Procedure Procedure 1 Procedure Site: Cerebral Procedure(s): Angiogram Access Access Site(s): Right Femoral Artery Closure Site(s): Right hemostasis patch Findings: 4-vessel cerebral angiogram performed. No significant proximal spasm but increase in circulation time. Treament Area: Intracranial Verapamil 5mg Rt ICA, 5mg Lt ICA, 5mg Rt vertebral A and 5mg Lt vertebral A. Total of 20mg. Leonel Alva MD Oct 15, 2016 13:44
[2016-10-15] MEDS ORDERED: IODIXANOL 320 MG/ML 50 ML VIAL (for RAD SPEC) I-ARTERIAL ONE (13:52)
[2016-10-15] MEDS: fentaNYL 2,500 MCG/NS 250 ML IV SCH (15:56)
[2016-10-15] MEDS: MORPHINE SULFATE 4 MG/ML INJ IV PRN (19:04)
[2016-10-15] MEDS ORDERED: SODIUM CHLOR 0.9% 250 ML INJ 250 ML ONE ×2 (20:40→22:51)
[2016-10-15] MEDS: cloNIDine HCL 0.1 MG TAB NG PRN (23:23)
[2016-10-16] VITALS (19 sets, daily range): BP systolic 131–172; BP diastolic 64–97; PULSE 59–76; RESP 16–20; TEMP 98.6–100.5; O2SAT 98–100
[2016-10-16] MEDS ORDERED: SODIUM CHLOR 0.9% 250 ML INJ 250 ML ONE ×2 (01:03→01:47)
[2016-10-16] MEDS: niCARdipine INJ 25 MG in SODIUM CHLOR 0.9% 250 ML INJ 250 ML IV SCH ×5 (01:04→16:31)
[2016-10-16] MEDS: METOPROLOL TARTRATE 25 MG TAB PO SCH ×4 (01:15→20:02)
[2016-10-16] MEDS: AZTREONAM INJ 2,000 MG in SODIUM CHLORIDE 0.9% INJ 100 ML IV SCH ×3 (01:15→18:17)
[2016-10-16] MEDS: fentaNYL 2,500 MCG/NS 250 ML IV SCH (01:39)
[2016-10-16] MEDS: metroNIDAZOLE 500 MG INJ 100 ML IV SCH ×4 (02:32→20:02)
[2016-10-16 03:00] LABS: AUTOMATED NEUTROPHIL # 11.6 TH/MM3 (1.8-7.7); BASOPHIL # 0.1 TH/MM3 (0-0.2); BASOPHIL % 0.6 % (0.0-2.0); EOSINOPHIL # 0.2 TH/MM3 (0-0.4); EOSINOPHIL % 1.4 % (0.0-4.0); HEMATOCRIT 31.9 % (39.0-51.0); HEMOGLOBIN 10.3 GM/DL (13.0-17.0); LYMPH % 8.3 % (9.0-44.0); LYMPHOCYTE # 1.2 TH/MM3 (1.0-4.8); MEAN CELL VOLUME 90.6 FL (80.0-100.0); MEAN CORPUSCULAR HEMOGLOBIN 29.3 PG (27.0-34.0); MEAN CORPUSCULAR HGB CONC 32.3 % (32.0-36.0); MEAN PLATELET VOLUME 9.6 FL (7.0-11.0); MONOCYTE # 1.3 TH/MM3 (0-0.9); NEUT % 80.7 % (16.0-70.0); PLATELET COUNT 179 TH/MM3 (150-450); RED BLOOD COUNT 3.52 MIL/MM3 (4.50-5.90); RED CELL DISTRIBUTION WIDTH 13.1 % (11.6-17.2); WHITE BLOOD COUNT 14.3 TH/MM3 (4.0-11.0)
[2016-10-16 03:42] LABS: AST (GOT) 63 U/L (15-37); BICARBONATE 24.6 MEQ/L (21.0-32.0); BLOOD UREA NITROGEN 30 MG/DL (7-18); CALCIUM 7.6 MG/DL (8.5-10.1); CHLORIDE 118 MEQ/L (98-107); CREATININE 0.86 MG/DL (0.60-1.30); GLOMERULAR FILTRATION RATE 94 ML/MIN (>89); GLUCOSE,RANDOM 180 MG/DL (74-106); MAGNESIUM 2.1 MG/DL (1.5-2.5); SODIUM (NA) 151 MEQ/L (136-145)
[2016-10-16 03:46] LABS: ALKALINE PHOSPHATASE 68 U/L (45-117); ALT (GPT) 102 U/L (12-78); TOTAL BILIRUBIN ADULT 0.4 MG/DL (0.2-1.0)
[2016-10-16] MEDS: CHLORHEXIDINE GLUCONATE 2 % 1 PACK (2 CLOTHS) TOP SCH (03:54)
[2016-10-16] MEDS: DOCUSATE SODIUM 100 MG CAP G-TUBE SCH ×2 (03:54→16:16)
[2016-10-16] MEDS: niMODipine 30 MG CAP PO SCH ×5 (03:54→20:02)
[2016-10-16] MEDS ORDERED: EPINEPHrine HCL (1:10,000) 1 MG/10 ML SYRINGE ONE (03:57)
[2016-10-16] MEDS ORDERED: ATROPINE SULFATE 1 MG/10 ML SYRINGE ONE (03:57)
[2016-10-16] MEDS ORDERED: LIDOCAINE HCL 2% 100 MG/5 ML SYRINGE ONE (03:57)
--- NOTE | 2016-10-16 04:58 | RADRPT ---
EXAM DATE/TIME: 10/16/2016 04:20 [facility] COMPARISON: CT BRAIN W/O CONTRAST, October 14, 2016, 4:25. INDICATIONS : Post-op. Ventriculostomy clamp RADIATION DOSE: 56.35 CTDIvol (mGy) MEDICAL HISTORY : Pancreatitis. Hypertension. Cardiovascular disease SURGICAL HISTORY : None. ENCOUNTER: Subsequent ACUITY: 2 weeks PAIN SCALE: Non-responsive LOCATION: cranial TECHNIQUE: Multiple contiguous axial images were obtained of the head. Using automated exposure control and adj ustment of the mA and/or kV according to patient size, radiation dose was kept as low as reasonably a chievable to obtain optimal diagnostic quality images. FINDINGS: There continues to be subarachnoid hemorrhage as well as effacement of the sulci compatible with diff use edema. No acute hemorrhage is seen. There is hypodensity in the left thalamus with May reflect ed erik or infarction. Ventriculostomy is in place. Aneurysm coil is in place in the basilar apex. No hyd rocephalus is seen. CONCLUSION: 1. Continued findings of cerebral edema similar to the prior study without evidence of herniation. No evidence of hydrocephalus. 2. Evolving left thalamic infarct Trevin De León MD on October 16, 2016 at 4:52 Board Certified Radiologist. This report was verified electronically.
[2016-10-16] MEDS: PANTOPRAZOLE SODIUM 40 MG VIAL IV SCH (08:38)
[2016-10-16] MEDS: levETIRAcetam INJ 500 MG in SODIUM CHLORIDE 0.9% INJ 100 ML IV SCH ×2 (08:38→20:02)
[2016-10-16] MEDS: SODIUM CHLORIDE 0.9% FLUSH 10 ML FLUSH IV FLUSH SCH (08:38)
[2016-10-16] MEDS: POLYETHYLENE GLYCOL 17 GM PKG PO SCH (08:39)
[2016-10-16] MEDS: PRAVASTATIN SOD 40 MG TAB PO SCH (08:39)
[2016-10-16] MEDS: TAMSULOSIN HCL 0.4 MG CAP PO SCH ×2 (08:39→20:03)
[2016-10-16] MEDS: LACTULOSE SYRUP 20 GM/30 ML CUP PO SCH (08:39)
[2016-10-16] MEDS: ARTIFICIAL TEARS OPTH SOLN 15 ML BTL EACH EYE SCH ×3 (08:40→18:16)
--- NOTE | 2016-10-16 09:42 | HHI.CCPN ---
Subjective Remarks/Hospital Course 51 year old male presents with being brought in as a trauma alert due to a head injury with altered mental status and a diminished GCS. The patient was in the bathroom and fell and hit his head. This was an unwitnessed fall. According to the patient's the patient had been unresponsive for approximately 15 minutes by the time ambulance services arrived. When they arrived the patient was noted to be a GCS of 14, however his mentation would wax and wane and go down as low as 3 again. On arrival to the emergency department he felt extremely nauseated. The CT of the head revealed diffuse subarachnoid bleed. 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 CT head today with some ventricular blood. ICP controlled and patient tolerates lightening of sedation. Volume loaded to maintain SBP > 130s. Opens eyes to voice. 10/07: BP controlled. TCDs to be done today. 10/08: BP control good. Well hydrated. No TCD evidence of spasm. 10/09: TCD today pending. CPP good. No seizure activity. Remains well hydrated. 10/10: TCDs no vasospasm. Remains well hydrated, well perfused. Some peripheral edema as expected. 10/11: Hemodynamics good. Bladder spasm continues. Try Flomax - an alpha kendall , will not impair cerebral vessels. 10/12: Episode of sepsis last night from obstructed Guzman, JONH evident. Much improved now. 10/13: JONH improving. Narrow abx to GNR. 10/14: Aztreonam started for sputum, urine. CT Head acceptable. 10/15: No change in neuro status. BP control good. 10/16: Remains sedated, orally intubated on mechanical ventilation. Ventriculostomy in place. Underwent angiogram with injection of verapamil intra -arterial for minimal vasospasm on 10/15 Objective Vital Signs Date Time Temp Pulse Resp B/P Pulse Ox O2 Delivery O2 Flow Rate FiO2 10/16/16 08:00 59 10/16/16 04:52 98 40 10/16/16 04:00 98.6 16 160/68 Intake and Output 10/15/16 10/15/16 10/16/16 08:00 16:00 00:00 Intake Total 1536 ml 1196 ml 1952 ml Output Total 2100.0 ml 1700 ml 4057 ml Balance -564.0 ml -504 ml -2105 ml Result Diagram: 10/16/16 0248 10/16/16 0248 Imaging Last 24 hours Impressions Pelvis X-Ray 10/05/16109 Signed Impressions: Service Date/Time: Wednesday, October 05, 2016 01:22 - CONCLUSION: Unremarkable examination of the pelvis. Ruben Acuña Jr., MD Head CT 10/05/16109 Signed Impressions: Service Date/Time: Wednesday, October 05, 2016 01:38 - CONCLUSION: Diffuse subarachnoid hemorrhage. Ruben Acuña Jr., MD Chest X-Ray 10/05/16109 Signed Impressions: Service Date/Time: Wednesday, October 05, 2016 01:22 - CONCLUSION: No acute disease. Ruben cAuña Jr., MD Chest CT 10/05/16109 Signed Impressions: Service Date/Time: Wednesday, October 05, 2016 01:46 - CONCLUSION: 1. No acute intrathoracic abnormality. 2. Bibasilar atelectasis. 3. Cardiomegaly. 4. Prior granulomatous disease. Ruben Acuña Jr., MD Cervical Spine CT 10/05/16109 Signed Impressions: Service Date/Time: Wednesday, October 05, 2016 01:40 - CONCLUSION: 1. No fracture or dislocation. 2. Multilevel degenerative changes. Ruben Acuña Jr., MD Abdomen/Pelvis CT 10/05/16109 Signed Impressions: Service Date/Time: Wednesday, October 05, 2016 01:46 - CONCLUSION: 1. No acute trauma. 2. Rounded area of decreased density involving the pancreatic head. I cannot completely exclude pancreatic head mass. At some point MRI of the pancreas is suggested to further evaluate. 3. Focal area of poor enhancement involving the left kidney. This may relate to an area of parenchymal scarring. I cannot completely exclude a mass. This can be further assessed with MRI as well. Ruben Acuña Jr., MD Objective Remarks GENERAL: Calm, sedated. SKIN: Dry HEAD: Normocephalic. EYES: Pupils are 2 mm and reactive bilaterally. NECK: Supple, trachea midline. Orally intubated. CARDIOVASCULAR: Regular rate and rhythm without murmurs, gallops, or rubs. No JVD. RESPIRATORY: Breath sounds equal bilaterally. Clear, no wheezes or crackles. Good soha excursions. Tachypnea. GASTROINTESTINAL: Abdomen soft, non-tender, nondistended. BS active. No guarding. EXTREMITIES: Nonfocal clubbing cyanosis or edema, well perfused. NEURO: Opens eyes when light. COURTNEY. Ventric in place A/P Problem List: (1) 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 ICD Code: I60.8 Status: Acute (2) Intracranial hemorrhage ICD Code: I62.9 Status: Acute (3) Hypertension ICD Code: I10 Status: Acute Assessment and Plan Respiratory failure - Intubated for airway protection - No weaning until neurologically improved and stable - ABGs - DuoNeb's as needed for wheezing - D/C EtCO2 Subarachnoid bleed - Núñez Veliz 5 Lucas grade 3 - Most likely an aneurysm - CTA - Nimodipine. Status post intra-arterial verapamil for vasospasm on 10/15. - Pravachol - SBP goal less than 140 - Daily TCD's - Basilar tip coiled. Hypertension - Nimodipine drip to keep SBP 140 -170 s/p coiling. - Labetalol when necessary. DVT GI prophylaxis - Teds SCDs - No pharmacological prophylaxis due to ICH - Protonix IV Bladder Spasms - Start Flomax -Urinary sepsis. Broad abx coverage started -Taper off vasopressors. Overall impression: Spontaneous subarachnoid hemorrhage, s/p coiling of basilar tip aneurysm. Critically ill as we remain vigilant for vasospasm and control hemodynamics. BP control acceptable. Some peripheral edema accumulating. Resuscitated from septic state 3 days ago after guzman obstructed, remains critically ill with new JONH, now improving. Blood pressure control acceptable. Urine and lungs similar organism, good coverage. Critical Care 40 mins Problem Qualifiers (1) Hypertension: Qualified Code: I10 - Essential hypertension Edmundo Yoo MD Oct 16, 2016 09:42
--- NOTE | 2016-10-16 09:43 | HHI.NSPN ---
(Kathy Blanton) Note Status Status: Progress Note (Kathy Blanton) Interval History Interval History 51-year-old male admitted with positive subarachnoid hemorrhage. Possible seizure activity. Intubated in the emergency room. He underwent endovascular coiling on 10/05/16, a ventriculostomy is placed. Ventriculostomy being challenged, now clamped. Follow up CT Head ordered for tomorrow. Intubated and mildly sedated on fentanyl. ICPs remains < 15. 10/16: s/p intra-arterial administration of verapamil yesterday, ICPs intermittently elevated in the low 20's, sedated on fentanyl, no changes to neuro checks (Kathy Blanton) Labs, Micro, & Vital Signs Results Date Time Temp Pulse Resp B/P Pulse Ox O2 Delivery O2 Flow Rate FiO2 10/16/16 08:00 59 10/16/16 06:00 68 10/16/16 04:52 98 40 10/16/16 04:10 100 100 10/16/16 04:00 76 10/16/16 04:00 98.6 76 16 160/68 100 10/16/16 04:00 40 10/16/16 02:00 62 10/16/16 00:21 100 40 10/16/16 00:00 40 10/16/16 00:00 99.5 62 19 152/64 100 10/16/16 00:00 62 10/15/16 22:00 68 10/15/16 20:09 100 40 10/15/16 20:00 40 10/15/16 20:00 76 10/15/16 20:00 99.6 76 17 170/68 100 10/15/16 18:00 91 10/15/16 16:21 100 40 10/15/16 16:00 69 10/15/16 16:00 98.2 69 19 141/68 100 10/15/16 16:00 40 10/15/16 14:45 40 10/15/16 12:30 40 10/15/16 12:30 100 100 10/15/16 12:15 146/61 10/15/16 12:00 75 10/15/16 12:00 100.7 75 22 210/87 100 10/15/16 12:00 40 10/15/16 10:00 66 10/16/16 07:00 Intake Total 5287 ml Output Total 7697 ml Balance -2410 ml Constitutional Vital Signs Date Time Temp Pulse Resp B/P Pulse Ox O2 Delivery O2 Flow Rate FiO2 10/16/16 08:00 59 10/16/16 06:00 68 10/16/16 04:52 98 40 10/16/16 04:10 100 100 10/16/16 04:00 76 10/16/16 04:00 98.6 76 16 160/68 100 10/16/16 04:00 40 10/16/16 02:00 62 10/16/16 00:21 100 40 10/16/16 00:00 40 10/16/16 00:00 99.5 62 19 152/64 100 10/16/16 00:00 62 10/15/16 22:00 68 10/15/16 20:09 100 40 10/15/16 20:00 40 10/15/16 20:00 76 10/15/16 20:00 99.6 76 17 170/68 100 10/15/16 18:00 91 10/15/16 16:21 100 40 10/15/16 16:00 69 10/15/16 16:00 98.2 69 19 141/68 100 10/15/16 16:00 40 10/15/16 14:45 40 10/15/16 12:30 40 10/15/16 12:30 100 100 10/15/16 12:15 146/61 10/15/16 12:00 75 10/15/16 12:00 100.7 75 22 210/87 100 10/15/16 12:00 40 10/15/16 10:00 66 10/16/16 07:00 Intake Total 5287 ml Output Total 7697 ml Balance -2410 ml (Kathy Blanton) Review of Systems/Exam Exam Intubated and mildly sedated. No eye opening to deep pain or voice or spontaneous Ventricular catheter in place, EVD clamped, ICPs currently labile from 13 to 19 , EVD reopened and dropped to 15cm H20 CN: Pupils 4 mm reactive b/l Mild corneal responses Motor: Minimal withdrawal in both feet to local stimuli, no response to UE b/l, nursing reports saw brief 3/5 right arm movement. Cerebellar: cannot assess. (Kathy Blanton) Medications Current Medications Current Medications Medications (Trade) Dose Ordered Sig/Nava Route PRN Reason Start Time Stop Time Status Last Admin Dose Admin Acetaminophen (Tylenol) 650 mg Q6H PRN PO PAIN 1-10 AND/OR FEVER >101F 10/05/16 02:45 10/15/16 11:51 Morphine Sulfate (Morphine Inj) 2 mg Q2H PRN IV PAIN SCALE 6 TO 10 10/05/16 02:45 10/15/16 19:04 Pantoprazole Sodium (Protonix Inj) 40 mg DAILY IV 10/05/16 09:00 10/16/16 08:38 Lorazepam (Ativan Inj) 2 mg Q4H PRN IV Agitation/Sedation 10/05/16 02:45 10/11/16 12:27 Artificial Tears (Tears Naturale Opth Soln) 1 drop TID EACH EYE 10/05/16 09:00 10/16/16 08:40 Ondansetron HCl (Zofran Inj) 4 mg Q6H PRN IV NAUSEA OR VOMITING 10/05/16 02:45 Metoclopramide HCl (Reglan Inj) 10 mg Q6H PRN IV NAUSEA OR VOMITING 10/05/16 02:45 10/13/16 09:48 Docusate Sodium (Colace) 100 mg Q12H G-TUBE 10/05/16 04:00 10/15/16 04:45 Miscellaneous Information 1 Q361D XX 10/05/16 02:45 10/05/16 02:45 Chlorhexidine Gluconate (Chlorhexidine 2% Cloth) Taper DAILY@04 TOP 10/05/16 04:00 10/01/17 03:59 10/09/16 04:58 Chlorhexidine Gluconate 3 pack 3 pack UNSCH PRN TOP HYGIENIC CARE 10/05/16 02:45 Propofol 100 ml @ 0 mls/hr TITRATE IV 10/05/16 02:45 10/13/16 16:58 Levetriacetam 500 mg/Sodium Chloride 105 ml @ 420 mls/hr Q12HR IV 10/05/16 09:00 10/16/16 08:38 Nicardipine HCl/ Sodium Chloride (Cardene Inj/NS 250 ml Inj) 260 ml @ 0 mls/hr TITRATE IV 10/05/16 02:45 10/16/16 04:50 Labetalol HCl (Trandate Inj) 10 mg Q4H PRN IV PUSH SBP>140, DBP>90 10/05/16 02:45 10/14/16 14:33 Nimodipine (Nimotop) 60 mg Q4HR PO 10/05/16 04:00 10/16/16 08:39 Pravastatin Sodium 40 mg 40 mg DAILY PO 10/05/16 09:00 10/16/16 08:39 Fentanyl Citrate (fentaNYL DRIP) 250 ml @ 0 mls/hr TITRATE IV 10/05/16 22:15 10/16/16 01:39 Sodium Chloride (NS Flush) See Protocol DAILY IV FLUSH 10/07/16 09:00 10/16/16 08:38 Sodium Chloride (NS Flush) See Protocol UNSCH PRN IV FLUSH SEE PROTOCOL TABLE 10/06/16 12:00 Heparin Sodium (Porcine) (Heparin Central Flush) See Protocol DAILY IV FLUSH 10/07/16 09:00 10/13/16 09:00 Heparin Sodium (Porcine) (Heparin Central Flush) See Protocol UNSCH PRN IV FLUSH SEE PROTOCOL TABLE 10/06/16 12:00 10/11/16 08:00 Sodium Chloride UNSCH PRN IV FLUSH SEE PROTOCOL TABLE 10/06/16 12:00 Norepinephrine Bitartrate/Sodium Chloride (Levophed Inj/NS 250 ml Inj) 254 ml @ 0 mls/hr TITRATE IV 10/06/16 18:00 10/06/16 21:54 Clonidine (Catapres) 0.1 mg Q8H PRN NG SBP>170, DBP>90 10/09/16 16:15 10/15/16 23:23 Polyethylene Glycol (Miralax) 17 gm DAILY PO 10/10/16 14:00 10/16/16 08:39 Lactulose (Lactulose Liq) 30 ml DAILY PO 10/10/16 14:00 10/16/16 08:39 Metoprolol Tartrate 25 mg 25 mg Q6H PO 10/10/16 14:00 10/16/16 08:39 Labetalol HCl/ Sodium Chloride (Trandate Inj/NS Inj) 250 ml @ 0 mls/hr TITRATE IV 10/10/16 17:00 Tamsulosin HCl 0.4 mg 0.4 mg Q12HR PO 10/11/16 09:00 10/16/16 08:39 Aztreonam 2000 mg/ Sodium Chloride 100 ml @ 200 mls/hr Q8H IV 10/12/16 02:00 10/16/16 09:30 Metronidazole 100 ml @ 100 mls/hr Q6H IV 10/12/16 03:00 10/16/16 08:37 Potassium Chloride 100 ml @ 50 mls/hr Q2H PRN IV For Potassium 2.8 - 3.2 mEq/L 10/14/16 16:00 Potassium Chloride (KCl 20 Meq Premix Inj) 100 ml @ 50 mls/hr Q2H PRN IV For Potassium 2.8 - 3.2 mEq/L 10/14/16 16:00 10/15/16 17:29 Potassium Bicarb/ Potassium Chloride 50 meq 50 meq UNSCH PRN PO For Potassium 3.3 - 3.5 mEq/L 10/14/16 16:00 Potassium Chloride 100 ml @ 25 mls/hr UNSCH PRN IV For Potassium 3.3 - 3.5 mEq/L 10/14/16 16:00 Potassium Chloride 100 ml @ 50 mls/hr Q2H PRN IV For Potassium 3.3 - 3.5 mEq/L 10/14/16 16:00 Magnesium Sulfate/ Sodium Chloride (Magnesium Sulfate Inj/NS Inj) 100 ml @ 50 mls/hr UNSCH PRN IV For Magnesium 0.9 - 1.1 mg/dL 10/14/16 16:00 Magnesium Oxide 800 mg 800 mg UNSCH PRN PO For Magnesium 1.2 - 1.6 mg/dL 10/14/16 16:00 Magnesium Sulfate/ Sodium Chloride (Magnesium Sulfate Inj/NS Inj) 100 ml @ 50 mls/hr UNSCH PRN IV For Magnesium 1.2 - 1.6 mg/dL 10/14/16 16:00 Potassium Phosphate 2000 mg 2,000 mg Q4H PRN PO For Phosphorus < 2.5 mg/dL 10/14/16 16:00 Sodium Phosphate/ Sodium Chloride (Sodium Phosphate Inj/NS 250 ml Inj) 250 ml @ 42 mls/hr UNSCH PRN IV For Phosphorus < 2.5 mg/dL 10/14/16 16:00 Potassium Phosphate 2000 mg 2,000 mg UNSCH PRN PO/TUBE SEE LABEL COMMENTS 10/14/16 16:00 Potassium Phosphate/Sodium Chloride (Potassium Phosphate Inj/NS 250 ml Inj) 260 ml @ 42 mls/hr UNSCH PRN IV SEE LABEL COMMENTS 10/14/16 16:00 Diphenhydramine HCl (Benadryl Inj) 25 mg Q6H PRN IV RASH 10/16/16 08:15 (Kathy Blanton) Medical Decision Making MDM Remarks 51 y/o male presented 10/05/16 with SAH, basilar tip aneurysm s/p endovascular coiling, ventriculostomy drain placement TCD 10/16 showed evidence of vasospasm, s/p intra-arterial verapamil 10/16 (Kathy Blanton) Plan Plan Remarks f/u CT Brain today reviewed, ICPs intermittently elevated as high as 24, reopen EVD to 15 cm H20, cont ICP monitoring cont serial neuro checks critical care mgt f/u daily TCDs (Kathy Blanton) Attending Statement The exam, history, and the medical decision-making described in the above note were completed with the assistance of the mid-level provider. I reviewed and agree with the findings presented. I attest that I had a [id number] encounter with the patient on the same day, and personally performed and documented my assessment and findings in the medical record. (Mj Muhammad MD) Kathy Blanton Oct 16, 2016 09:43 Mj Muhammad MD Oct 18, 2016 12:17
--- NOTE | 2016-10-16 10:01 | RADRPT ---
EXAM DATE/TIME: 10/16/2016 07:23 [facility] COMPARISON: No previous studies available for comparison. INDICATIONS : Subarachnoid hemorrhage. MEDICAL HISTORY : Hypertension. Pancreatitis. Cardiovascular disease. SURGICAL HISTORY : Ventriculostomy clamp.Ventriculostomy drain. Endovascular coiling. ENCOUNTER: Sequela ACUITY: 1 week PAIN SCORE: Nonresponsive. LOCATION: cranial Current Exam: Oct 16, 2016 [place] Ratio: Right: 2.59 Left: 3.47 Gregorio Ratio: Right: 1.36 Left: 1.97 Previous Exam: Oct 15, 2016 [place] Ratio: Right: 2.4 Left: 3.0 Gregorio Ratio: Right: 1.5 Left: 1.9 FINDINGS: Examination performed at bedside. Real-time ultrasound with the assistance of color and spectral Dop pler was utilized to evaluate the intracerebral circulation. Time-averaged maximal velocities are ca lculated in cm/s. The Lindegaard Ratio on the left side has increased from 3.0-3.5. CONCLUSION: There is more spasm involving the left MCA since the study from one day ago. Rosemarie Sagastume MD on October 16, 2016 at 9:58 Board Certified Radiologist. This report was verified electronically.
[2016-10-16] MEDS: ACETAMINOPHEN 325 MG TAB PO PRN ×2 (11:41→18:32)
[2016-10-16] MEDS: POTASSIUM CHLOR 20 MEQ PREMIX 100 ML IV PRN ×2 (11:42→12:41)
--- NOTE | 2016-10-16 11:43 | RADRPT ---
EXAM DATE/TIME: 10/15/2016 13:03 [facility] COMPARISON: US TRANSCRANIAL DOPPLER COMPLETE, October 16, 2016, 7:23. ANGIOGRAM, CEREBRAL WO ARCH, October 05, 2016, 0:00. INDICATIONS : Patient is in need of a cerebral angiogram with vasospasm therapy s/p cerebral ane urysm coiling. MEDICAL HISTORY : History of SMH, CVA, HTN, pancreatitis, respiratory failure. SURGICAL HISTORY : History of cerebral coiling, ventriculostomy drain placement. ENCOUNTER: Subsequent ACUITY: 2 weeks PAIN SCORE: 0/10 LOCATION: Patient is vented. FLUORO TIME: 7.3 minutes IMAGE SERIES: 6 ACCESS SITE: Right Femoral artery CONTRAST: 75 cc Visipaque (iodixanol) MEDICATION(S): 1.) 20 mg verapamil IART DEVICE(S): 1.) Right common femoral artery VPad Syvek pad PROCEDURE : 1. Ultrasound-guided puncture of the access site. 2. Conscious sedation with continuous EKG and Oximetry monitoring. 3. Angiography of the right cerebral circulation 4. Angiography of the left cerebral circulation 5. Angiography of the left vertebral basilar circulation. 6. Angiography of the right vertebrobasilar circulation 7. Intra-arterial spasmolytic therapy with verapamil injection into the right internal carotid arter y (5 mg), left internal carotid artery (5 mg), left vertebral artery (5 mg) and right vertebral arter y (5 mg). The risks, benefits and alternatives to the procedure were explained and verbal and written consent w as obtained. The site was prepped in sterile fashion. Full sterile technique was used, including ca p, mask, sterile gloves and gown and a large sterile sheet. Hand hygiene and 2% chlorhexidine and/or betadine/alcohol prep was utilized per protocol for cutaneous antisepsis. The skin and subcutaneous tissues were infiltrated with local anesthetic solution. With ultrasound and fluoroscopic guidance the selected artery was punctured and a vascular sheath was placed A cerebral diagnostic catheter was advanced over a guidewire into the aortic arch. Selective catheter izations and angiography were performed of the right cerebral circulation, left cerebral circulation, left vertebrobasilar circulation and right vertebrobasilar circulation. 4 vessel cerebral arteriogram demonstrates mild spasm in the M1 segment of left middle cerebral arter y. No other significant spasm is noted. Coiled anterior communicating artery aneurysm appear stable w ithout evidence of extravasation. Decreased circulation time was identified. A total of 20 mg of intra-arterial verapamil were administ ered. 5 mg injections were performed into the right internal carotid artery, left internal carotid ar velasquez, left vertebral artery and right vertebral artery. The puncture site was closed with manual pressure and hemostasis was obtained. The patient tolerated the procedure well and there were no complications. Conscious sedation was performed with the prescribed dosages and duration as above in the presence of an independent trained radiology nurse to assist in the monitoring of the patient. EKG and oximetry remained stable throughout the procedure. CONCLUSION: 4 vessel cerebral arteriogram demonstrates minimal spasm in the M1 segment of the lef t cerebral artery and stable coiled anterior communicating artery aneurysm. Spasmolytic therapy as described above was completed without complication. Leonel Alva MD on October 16, 2016 at 11:33 Board Certified Radiologist. This report was verified electronically.
[2016-10-16] MEDS: POTASSIUM PHOSPHATE MONOBASIC 500 MG TAB PO/TUBE PRN (12:31)
[2016-10-16] MEDS: diphenhydrAMINE HCL 50 MG/ML VIAL IV PRN (18:32)
[2016-10-16 20:18] LABS: PHOSPHORUS 2.4 MG/DL (2.5-4.9)
[2016-10-16] MEDS: POTASSIUM CHLOR 40 MEQ PREMIX 100 ML IV PRN (22:01)
[2016-10-16] MEDS: POTASSIUM PHOSPHATE MONOBASIC 500 MG TAB PO PRN (22:01)
[2016-10-17] VITALS (18 sets, daily range): BP systolic 153–182; BP diastolic 73–92; PULSE 62–95; RESP 19–23; TEMP 99.3–100.2; O2SAT 98–100
[2016-10-17] MEDS: niMODipine 30 MG CAP PO SCH ×10 (00:14→22:29)
[2016-10-17] MEDS: cloNIDine HCL 0.1 MG TAB NG PRN (00:28)
[2016-10-17] MEDS: LABETALOL HCL 100 MG/20 ML VIAL IV PUSH PRN (00:29)
[2016-10-17] MEDS: fentaNYL 2,500 MCG/NS 250 ML IV SCH (00:29)
[2016-10-17] MEDS: AZTREONAM INJ 2,000 MG in SODIUM CHLORIDE 0.9% INJ 100 ML IV SCH ×3 (01:09→16:50)
[2016-10-17] MEDS: METOPROLOL TARTRATE 25 MG TAB PO SCH ×4 (01:09→20:01)
[2016-10-17] MEDS: POTASSIUM PHOSPHATE MONOBASIC 500 MG TAB PO PRN (02:00)
[2016-10-17] MEDS: metroNIDAZOLE 500 MG INJ 100 ML IV SCH ×4 (02:00→20:01)
[2016-10-17] MEDS: DOCUSATE SODIUM 100 MG CAP G-TUBE SCH ×2 (03:28→13:00)
[2016-10-17] MEDS: CHLORHEXIDINE GLUCONATE 2 % 1 PACK (2 CLOTHS) TOP SCH (03:30)
[2016-10-17] MEDS: PRAVASTATIN SOD 40 MG TAB PO SCH (07:15)
[2016-10-17] MEDS: levETIRAcetam INJ 500 MG in SODIUM CHLORIDE 0.9% INJ 100 ML IV SCH ×2 (07:16→21:17)
[2016-10-17] MEDS: TAMSULOSIN HCL 0.4 MG CAP PO SCH ×3 (07:16→21:17)
[2016-10-17] MEDS: PANTOPRAZOLE SODIUM 40 MG VIAL IV SCH (07:16)
[2016-10-17] MEDS: LACTULOSE SYRUP 20 GM/30 ML CUP PO SCH (07:17)
[2016-10-17] MEDS: SODIUM CHLORIDE 0.9% FLUSH 10 ML FLUSH IV FLUSH SCH (07:17)
[2016-10-17] MEDS: ARTIFICIAL TEARS OPTH SOLN 15 ML BTL EACH EYE SCH ×3 (07:17→16:50)
[2016-10-17] MEDS: POLYETHYLENE GLYCOL 17 GM PKG PO SCH (07:18)
[2016-10-17] MEDS: diphenhydrAMINE HCL 50 MG/ML VIAL IV PRN ×2 (08:20→18:16)
[2016-10-17 09:07] LABS: PHOSPHORUS 2.9 MG/DL (2.5-4.9)
[2016-10-17] MEDS: ACETAMINOPHEN 325 MG TAB PO PRN ×2 (09:36→18:16)
--- NOTE | 2016-10-17 11:17 | RADRPT ---
EXAM DATE/TIME: 10/17/2016 08:30 [facility] COMPARISON: US TRANSCRANIAL DOPPLER COMPLETE, October 16, 2016, 7:23. INDICATIONS : Subarachnoid hemorrhage. MEDICAL HISTORY : Hypertension. Pancreatitis. TIA. Migraines. Cardiovascular disease. Subarachnoid hemorrhage. SURGICAL HISTORY : Ventriculostomy clamp. Ventriculostomy drain. Endovascular coiling. ENCOUNTER: [facility] ACUITY: 1 week PAIN SCORE: Nonresponsive. LOCATION: Bilateral cranial Current Exam: Oct 17, 2016 [place] Ratio: Right: 2.5 Left: 2.0 Gregorio Ratio: Right: 1.3 Left: 1.1 Previous Exam: Oct 16, 2016 [place] Ratio: Right: 2.59 Left: 3.47 Gregorio Ratio: Right: 1.36 Left: 1.97 FINDINGS: Examination performed at bedside. Real-time ultrasound with the assistance of color and spectral Dop pler was utilized to evaluate the intracerebral circulation. Time-averaged maximal velocities are ca lculated in cm/s. On the prior examination, there was slight elevation of the Lindegard ratio on the left. This has now normalized. Lindegard and Gregorio ratios are normal throughout. No elevated velocities. CONCLUSION: Negative exam with no Doppler findings of intracranial vasospasm. Gume Mckeon MD on October 17, 2016 at 11:12 Board Certified Radiologist. This report was verified electronically.
--- NOTE | 2016-10-17 11:30 | HHI.CCPN ---
Subjective Remarks/Hospital Course 51 year old male presents with being brought in as a trauma alert due to a head injury with altered mental status and a diminished GCS. The patient was in the bathroom and fell and hit his head. This was an unwitnessed fall. According to the patient's the patient had been unresponsive for approximately 15 minutes by the time ambulance services arrived. When they arrived the patient was noted to be a GCS of 14, however his mentation would wax and wane and go down as low as 3 again. On arrival to the emergency department he felt extremely nauseated. The CT of the head revealed diffuse subarachnoid bleed. 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 CT head today with some ventricular blood. ICP controlled and patient tolerates lightening of sedation. Volume loaded to maintain SBP > 130s. Opens eyes to voice. 10/07: BP controlled. TCDs to be done today. 10/08: BP control good. Well hydrated. No TCD evidence of spasm. 10/09: TCD today pending. CPP good. No seizure activity. Remains well hydrated. 10/10: TCDs no vasospasm. Remains well hydrated, well perfused. Some peripheral edema as expected. 10/11: Hemodynamics good. Bladder spasm continues. Try Flomax - an alpha kendall , will not impair cerebral vessels. 10/12: Episode of sepsis last night from obstructed Guzman, JONH evident. Much improved now. 10/13: JONH improving. Narrow abx to GNR. 10/14: Aztreonam started for sputum, urine. CT Head acceptable. 10/15: No change in neuro status. BP control good. 10/16: Remains sedated, orally intubated on mechanical ventilation. Ventriculostomy in place. Underwent angiogram with injection of verapamil intra -arterial for minimal vasospasm on 10/15 10/17: Remains sedated, orally intubated on mechanical ventilation. Ventriculostomy drained 65 cc over 8 hours overnight. Objective Vital Signs Date Time Temp Pulse Resp B/P Pulse Ox O2 Delivery O2 Flow Rate FiO2 10/17/16 11:05 100 40 10/17/16 10:00 62 10/17/16 08:00 100.1 21 182/87 Arterial Line Intake and Output 10/16/16 10/16/16 10/17/16 08:00 16:00 00:00 Intake Total 2139 ml 1611 ml 1213 ml Output Total 1940 ml 1792 ml 1797 ml Balance 199 ml -181 ml -584 ml Result Diagram: 10/16/16 0248 10/17/16 0800 Imaging Last 24 hours Impressions Pelvis X-Ray 10/05/16109 Signed Impressions: Service Date/Time: Wednesday, October 05, 2016 01:22 - CONCLUSION: Unremarkable examination of the pelvis. Ruben Acuña Jr., MD Head CT 10/05/16109 Signed Impressions: Service Date/Time: Wednesday, October 05, 2016 01:38 - CONCLUSION: Diffuse subarachnoid hemorrhage. Ruben Acuña Jr., MD Chest X-Ray 10/05/16109 Signed Impressions: Service Date/Time: Wednesday, October 05, 2016 01:22 - CONCLUSION: No acute disease. Ruben Acuña Jr., MD Chest CT 10/05/16109 Signed Impressions: Service Date/Time: Wednesday, October 05, 2016 01:46 - CONCLUSION: 1. No acute intrathoracic abnormality. 2. Bibasilar atelectasis. 3. Cardiomegaly. 4. Prior granulomatous disease. Ruben Acuña Jr., MD Cervical Spine CT 10/05/16109 Signed Impressions: Service Date/Time: Wednesday, October 05, 2016 01:40 - CONCLUSION: 1. No fracture or dislocation. 2. Multilevel degenerative changes. Ruben Acuña Jr., MD Abdomen/Pelvis CT 10/05/16109 Signed Impressions: Service Date/Time: Wednesday, October 05, 2016 01:46 - CONCLUSION: 1. No acute trauma. 2. Rounded area of decreased density involving the pancreatic head. I cannot completely exclude pancreatic head mass. At some point MRI of the pancreas is suggested to further evaluate. 3. Focal area of poor enhancement involving the left kidney. This may relate to an area of parenchymal scarring. I cannot completely exclude a mass. This can be further assessed with MRI as well. Ruben Acuña Jr., MD Objective Remarks GENERAL: Calm, sedated. SKIN: Dry HEAD: Normocephalic. EYES: Pupils are 2 mm and reactive bilaterally. NECK: Supple, trachea midline. CARDIOVASCULAR: Regular rate and rhythm without murmurs, gallops, or rubs. No JVD. RESPIRATORY: Orally intubated on mechanical ventilation, Breath sounds equal bilaterally. Clear, no wheezes or crackles. Good soha excursions. GASTROINTESTINAL: Abdomen soft, non-tender, nondistended. BS active. No guarding. EXTREMITIES: Nonfocal clubbing cyanosis or edema, well perfused. NEURO: Opens eyes when light. COURTNEY. Ventric in place A/P Problem List: (1) 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 ICD Code: I60.8 Status: Acute (2) Intracranial hemorrhage ICD Code: I62.9 Status: Acute (3) Hypertension ICD Code: I10 Status: Acute Assessment and Plan Respiratory failure - Intubated for airway protection - No weaning until neurologically improved and stable - ABGs - DuoNeb's as needed for wheezing - D/C EtCO2 Subarachnoid bleed - Núñez Veliz 5 Lucas grade 3 - Most likely an aneurysm - CTA - Nimodipine. Status post intra-arterial verapamil for vasospasm on 10/15. - Pravachol - SBP goal less than 140 - Daily TCD's - Basilar tip coiled. Hypertension - Nimodipine drip to keep SBP 140 -170 s/p coiling. - Labetalol when necessary. DVT GI prophylaxis - Teds SCDs - No pharmacological prophylaxis due to ICH - Protonix IV Bladder Spasms - Start Flomax -Urinary sepsis. Broad abx coverage started -Taper off vasopressors. Overall impression: Spontaneous subarachnoid hemorrhage, s/p coiling of basilar tip aneurysm. Critically ill as we remain vigilant for vasospasm and control hemodynamics. BP control acceptable. Some peripheral edema accumulating. Resuscitated from septic state 3 days ago after guzman obstructed, remains critically ill with new JONH, now improving. Blood pressure control acceptable. Urine and lungs similar organism, good coverage. Critical Care 40 mins Problem Qualifiers (1) Hypertension: Qualified Code: I10 - Essential hypertension Edmundo Yoo MD Oct 17, 2016 11:30
[2016-10-17] MEDS: POTASSIUM CHLOR 40 MEQ PREMIX 100 ML IV PRN ×3 (11:59→22:29)
--- NOTE | 2016-10-17 12:23 | HHI.NSPN ---
History Chief Complaint: intubated and sedated Interval History 51-year-old male admitted with positive subarachnoid hemorrhage. Possible seizure activity. Intubated in the emergency room. 10/05/16: Endovascular coiling 10/07/16 rinse intubated and sedated. Ventriculostomy in place 10/09/16: Remains intubated and sedated. Increased agitation with attempts at sedation vacation 10/17/16: Pupils 2 mm. Intubated and sedated. Somewhat more responsive with decreased sedation. External ventricular drain and closed to reservoir again today. Exam Results Vital Signs Date Time Temp Pulse Resp B/P Pulse Ox O2 Delivery O2 Flow Rate FiO2 10/17/16 11:05 100 40 10/17/16 10:00 62 10/17/16 08:00 100.1 21 182/87 Arterial Line Intake and Output 10/16/16 10/16/16 10/17/16 08:00 16:00 00:00 Intake Total 2139 ml 1611 ml 1213 ml Output Total 1940 ml 1792 ml 1797 ml Balance 199 ml -181 ml -584 ml Physical Examination Intubated and mildly sedated. No eye opening to deep pain or voice or spontaneous Ventricular catheter in place, EVD clamped, ICPs currently 13-15 CN: Pupils 4 mm reactive b/l Mild corneal responses Motor: Minimal withdrawal in both feet to local stimuli, minimal movement upper extremities to deep pain Cerebellar: cannot assess. Lab, Micro, Other Results 10/17/16 transcranial Doppler report indicates no definite vasospasm. Laboratory Tests Test 10/16/16 10/17/16 19:48 08:00 Potassium Level 3.3 MEQ/L 3.2 MEQ/L Phosphorus Level 2.4 MG/DL 2.9 MG/DL Medical Decision Making Impression and Plan Impression: 1. Stable neurologic status following endovascular coiling for subarachnoid hemorrhage-ruptured basilar tip aneurysm.. Patient underwent angiogram with verapamil injection over the weekend for mild MCA vasospasm. 10/17/16 Transcranial Doppler negative for definite vasospasm Plan: maintenance of systolic blood pressure 130-170. Continue to wean ventriculostomy. Ventriculostomy closed to reservoir again today. Continuing Keppra due to probable seizure activity reported. Okay for Lovenox from neurosurgery standpoint Ulcer prophylaxis Okay to begin weaning sedation from neurosurgery standpoint Gino Mace MD Oct 17, 2016 12:23
[2016-10-17] MEDS: niCARdipine INJ 25 MG in SODIUM CHLOR 0.9% 250 ML INJ 250 ML IV SCH ×3 (16:50→22:29)
[2016-10-17] MEDS: POTASSIUM CHLORIDE 25 MEQ EFFERVESCENT TAB PO PRN (22:34)
[2016-10-18] VITALS (16 sets, daily range): BP systolic 145–168; BP diastolic 77–82; PULSE 66–90; RESP 17–21; TEMP 98.4–99.6; O2SAT 100
[2016-10-18] MEDS: niMODipine 30 MG CAP PO SCH ×12 (00:49→23:28)
[2016-10-18] MEDS: AZTREONAM INJ 2,000 MG in SODIUM CHLORIDE 0.9% INJ 100 ML IV SCH ×3 (01:14→17:08)
[2016-10-18] MEDS: METOPROLOL TARTRATE 25 MG TAB PO SCH ×3 (01:14→14:38)
[2016-10-18] MEDS: niCARdipine INJ 25 MG in SODIUM CHLOR 0.9% 250 ML INJ 250 ML IV SCH ×5 (01:15→11:23)
[2016-10-18] MEDS: metroNIDAZOLE 500 MG INJ 100 ML IV SCH ×4 (03:12→21:00)
[2016-10-18] MEDS: diphenhydrAMINE HCL 50 MG/ML VIAL IV PRN (03:12)
[2016-10-18] MEDS: CHLORHEXIDINE GLUCONATE 2 % 1 PACK (2 CLOTHS) TOP SCH (03:13)
[2016-10-18] MEDS: DOCUSATE SODIUM 100 MG CAP G-TUBE SCH ×2 (03:13→14:35)
[2016-10-18 06:19] LABS: BICARBONATE 23.5 MEQ/L (21.0-32.0); CALCIUM 6.8 MG/DL (8.5-10.1); CREATININE 0.65 MG/DL (0.60-1.30); MAGNESIUM 1.9 MG/DL (1.5-2.5)
[2016-10-18 06:33] LABS: CALCIUM-PROTEIN CORRECTED 7.6 MG/DL (8.5-10.1); TOTAL PROTEIN 5.6 GM/DL (6.4-8.2)
[2016-10-18] MEDS: POTASSIUM CHLOR 40 MEQ PREMIX 100 ML IV PRN (06:50)
[2016-10-18] MEDS: POTASSIUM PHOSPHATE MONOBASIC 500 MG TAB PO/TUBE PRN (06:51)
[2016-10-18] MEDS: TAMSULOSIN HCL 0.4 MG CAP PO SCH (09:00)
[2016-10-18] MEDS: PANTOPRAZOLE SODIUM 40 MG VIAL IV SCH (09:37)
[2016-10-18] MEDS: levETIRAcetam INJ 500 MG in SODIUM CHLORIDE 0.9% INJ 100 ML IV SCH ×2 (09:37→21:00)
[2016-10-18] MEDS: POLYETHYLENE GLYCOL 17 GM PKG PO SCH (09:38)
[2016-10-18] MEDS: LACTULOSE SYRUP 20 GM/30 ML CUP PO SCH (09:38)
[2016-10-18] MEDS: PRAVASTATIN SOD 40 MG TAB PO SCH (09:38)
[2016-10-18] MEDS: SODIUM CHLORIDE 0.9% FLUSH 10 ML FLUSH IV FLUSH SCH (09:38)
[2016-10-18] MEDS: ARTIFICIAL TEARS OPTH SOLN 15 ML BTL EACH EYE SCH ×3 (09:43→17:08)
--- NOTE | 2016-10-18 11:29 | PD.HHIRCNE ---
Patient History Record/History Review Reason for Referral: The patient is a 51 year old unknown handed male status post traumatic brain injury secondary to a fall on 10/08/2016. The patient was in the bathroom and fell, and was unresponsive for a period of time but had a GCS of 14 when EMS arrived with waxing and waning presentation. Head CT was notable for diffuse SAH. There was questionable seizure activity which is treated prophylaxis Keppra. His hospital course is notable for emerging agitation issues. Neurosurgery is considering the process of weaning sedation. The patient is now referred for baseline neurobehavioral examination per trauma protocol to assess cognitive, behavioral and emotional aspects of the injury. Neuropsych Precautions: To be determined. Past Surgical/Medical History Past Surgery: No Major surgery in last 100 days: Unknown Hx of Neuro Prob: Yes Hx Seizures: No Cephalgia (Headaches): No Hx Migraines: Yes Hx Head Injury: No Hx Falls: Yes (THIS ADMISSION) Hx Cerebrovascular Accident: Yes (TIA IN THE PAST) Hx Dizziness: No Hx Numbness: No Hx of Musculoskeletal Pro: No Hx of Cardiovascular Prob: Yes Hypertension (High Blood Press: Yes Hx Clotting Problems: No Venous Thromboembolism Present: No Hx Chest Pain: No Hx Lightheadedness: No Hx Congestive Heart Failure: No Syncope (Fainting): No Hx of Respiratory Problem: No Hx of GI Problems: Yes (PANCREATITIS) Hx Heartburn: No Hx Gastroesophageal Reflux: No Hx Hiatal Hernia: No Hx Ulcer: No Hx Liver Disease: No Hx Gallbladder Disease: No Hx Inflammatory Bowel Disease: No Hx of Problems: No Hx of Immuno Disor: No Hx of Endocrine Problems: No Hx of Eye Probl: No Hx Psychiatric Problems: No Hx Blood Dyscrasias: No Hx of Body/Medical Devices: No Blood Transfusion History Will receive Blood /Blood prod: Yes Hx Blood Transfusions: No Mental Status Assessment Mental Status: Impaired: Thought processing, Language/Interactions, Attention, Learning/Memory, Problem-Solving, Visuospatial/Construction, Self-regulation, Other Observation The patient remains intubated and sedated. Adjustment/Coping Assessment Adjustment/Coping: Not Assessed: Depression, Anxiety, Pain, Apathy, Awareness, Insight Observation The patient is intubated and sedated. LTG Status: Deferred STG Status: Deferred Team Members: Neuropsychologist Behavior Assessment Treatment Engagement: No effort Observation Behaviorally, the patient has demonstrated increasing agitation as sedation has been lowered. LTG - Status: Deferred STG Status: Deferred Team Members: Neuropsychologist Diagnosis/Discharge Plan Impression This patient has suffered a significant traumatic brain injury secondary to a fall on 10/05/2016. He is expected to have residual neurocognitive deficits, and will likely require some level of neuro rehabilitation following his acute stay and medical stabilization. Diagnosis: (1) Major neurocognitive disorder as late effect of traumatic brain injury with behavioral disturbance Status: Acute [facility] Level: II:General response-total assist Maximizing acute care outcome It is recommended that the patient be monitored for emergent behavioral impulsivity as the medical condition evolves. This patients neuropathological challenges may limit their rehabilitation potential going forward, and these challenges will require specialized therapeutic skills to maximize outcome. Additionally, the patients family is experiencing ongoing issues of adjustment given the traumatic nature of the injury, and they may benefit from ongoing psychological assistance. Discharge Planning Anticipated Problems Ongoing areas of concern will include behavioral impulsivity, lack of insight and judgment, which is expected to improve with time and treatment. Treatment Plan This clinician will continue to follow with you throughout the course of this patients acute care treatment, and I will be available to meet with the patients family/support system to facilitate their understanding and the ongoing care of their family member. The goals of neuropsychological intervention shall be both educational and supportive to the family/support system as is deemed clinically appropriate. Discharge Needs To be determined. Thank you Thank you for the opportunity to assist in this patients care. Jeremy Workman, Ph.D., ABPP Board Certified in Clinical Neuropsychology [employer] [place] Licensed Psychologist [id number] Jeremy Workman PhD Oct 18, 2016 11:29
--- NOTE | 2016-10-18 14:20 | RADRPT ---
EXAM DATE/TIME: 10/18/2016 07:56 [facility] COMPARISON: US TRANSCRANIAL DOPPLER COMPLETE, October 17, 2016, 8:30. INDICATIONS : Subarachnoid hemorrhage. MEDICAL HISTORY : Hypertension. Pancreatitis. TIA. Migraine. Cardiovascular disease. SURGICAL HISTORY : Ventriculostomy clamp. Ventriculostomy drain. ENCOUNTER: Subsequent ACUITY: 1 week PAIN SCORE: Nonresponsive. LOCATION: cranial Current Exam: Oct 18, 2016 [place] Ratio: Right: 1.27 Left: 4.15 Gregorio Ratio: Right: 0.95 Left: 1.48 Previous Exam: Oct 17, 2016 [place] Ratio: Right: 2.5 Left: 2.0 Gregorio Ratio: Right: 1.36 Left: 1.1 FINDINGS: Examination performed at bedside. Real-time ultrasound with the assistance of color and spectral Dop pler was utilized to evaluate the intracerebral circulation. Time-averaged maximal velocities are ca lculated in cm/s. Current study shows significant increase in the velocities of the left MCA territory when compared to prior the previous M2 segment measuring 53.6 cm/s in today measuring 81.5 cm/s. In addition, [address] [address] ratio is elevated previously measuring 2.0 now measuring 4.2. CONCLUSION: Transcranial Doppler would suggest developing vasospasm in the left MCA territory. Gume Mckeon MD on October 18, 2016 at 14:13 Board Certified Radiologist. This report was verified electronically.
--- NOTE | 2016-10-18 14:56 | HHI.CCPN ---
Subjective Remarks/Hospital Course 51 year old male presents with being brought in as a trauma alert due to a head injury with altered mental status and a diminished GCS. The patient was in the bathroom and fell and hit his head. This was an unwitnessed fall. According to the patient's the patient had been unresponsive for approximately 15 minutes by the time ambulance services arrived. When they arrived the patient was noted to be a GCS of 14, however his mentation would wax and wane and go down as low as 3 again. On arrival to the emergency department he felt extremely nauseated. The CT of the head revealed diffuse subarachnoid bleed. 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 CT head today with some ventricular blood. ICP controlled and patient tolerates lightening of sedation. Volume loaded to maintain SBP > 130s. Opens eyes to voice. 10/07: BP controlled. TCDs to be done today. 10/08: BP control good. Well hydrated. No TCD evidence of spasm. 10/09: TCD today pending. CPP good. No seizure activity. Remains well hydrated. 10/10: TCDs no vasospasm. Remains well hydrated, well perfused. Some peripheral edema as expected. 10/11: Hemodynamics good. Bladder spasm continues. Try Flomax - an alpha kendall , will not impair cerebral vessels. 10/12: Episode of sepsis last night from obstructed Guzman, JONH evident. Much improved now. 10/13: JONH improving. Narrow abx to GNR. 10/14: Aztreonam started for sputum, urine. CT Head acceptable. 10/15: No change in neuro status. BP control good. 10/16: Remains sedated, orally intubated on mechanical ventilation. Ventriculostomy in place. Underwent angiogram with injection of verapamil intra -arterial for minimal vasospasm on 10/15 10/17: Remains sedated, orally intubated on mechanical ventilation. Ventriculostomy drained 65 cc over 8 hours overnight. 10/18: off sedation. withdraws to pain. does not follow commands. per nursing, this is an exam change and he was previously following commands. Objective Vital Signs Date Time Temp Pulse Resp B/P Pulse Ox O2 Delivery O2 Flow Rate FiO2 10/18/16 07:58 100 40 10/18/16 06:00 71 10/18/16 04:00 99.3 21 156/81 Intake and Output 10/17/16 10/17/16 10/18/16 08:00 16:00 00:00 Intake Total 1134 ml 927 ml 1844 ml Output Total 2015 ml 2799 ml 1700 ml Balance -881 ml -1872 ml 144 ml Result Diagram: 10/16/16 0248 10/18/16 0500 Imaging Last 24 hours Impressions Pelvis X-Ray 10/05/16109 Signed Impressions: Service Date/Time: Wednesday, October 05, 2016 01:22 - CONCLUSION: Unremarkable examination of the pelvis. Ruben Acuña Jr., MD Head CT 10/05/16109 Signed Impressions: Service Date/Time: Wednesday, October 05, 2016 01:38 - CONCLUSION: Diffuse subarachnoid hemorrhage. Ruben Acuña Jr., MD Chest X-Ray 10/05/16109 Signed Impressions: Service Date/Time: Wednesday, October 05, 2016 01:22 - CONCLUSION: No acute disease. Ruben Acuña Jr., MD Chest CT 10/05/16109 Signed Impressions: Service Date/Time: Wednesday, October 05, 2016 01:46 - CONCLUSION: 1. No acute intrathoracic abnormality. 2. Bibasilar atelectasis. 3. Cardiomegaly. 4. Prior granulomatous disease. Ruben Acuña Jr., MD Cervical Spine CT 10/05/16109 Signed Impressions: Service Date/Time: Wednesday, October 05, 2016 01:40 - CONCLUSION: 1. No fracture or dislocation. 2. Multilevel degenerative changes. Ruben Acuña Jr., MD Abdomen/Pelvis CT 10/05/16109 Signed Impressions: Service Date/Time: Wednesday, October 05, 2016 01:46 - CONCLUSION: 1. No acute trauma. 2. Rounded area of decreased density involving the pancreatic head. I cannot completely exclude pancreatic head mass. At some point MRI of the pancreas is suggested to further evaluate. 3. Focal area of poor enhancement involving the left kidney. This may relate to an area of parenchymal scarring. I cannot completely exclude a mass. This can be further assessed with MRI as well. Ruben Acuña Jr., MD Objective Remarks GENERAL: middle-aged male lying in bed, obtunded. SKIN: Dry HEAD: Normocephalic. EYES: Pupils are 2 mm and reactive bilaterally. NECK: Supple, trachea midline. CARDIOVASCULAR: Regular rate and rhythm without murmurs, gallops, or rubs. No JVD. RESPIRATORY: Orally intubated on mechanical ventilation, Breath sounds equal bilaterally. Clear, no wheezes or crackles. Good soha excursions. GASTROINTESTINAL: Abdomen soft, non-tender, nondistended. BS active. No guarding. EXTREMITIES: Nonfocal clubbing cyanosis or edema, well perfused. NEURO: does not open eyes. withdraws x 4. does not follow commands. grimace to pain only. Ventric in place A/P Problem List: (1) 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 ICD Code: I60.8 Status: Acute (2) Intracranial hemorrhage ICD Code: I62.9 Status: Acute (3) Hypertension ICD Code: I10 Status: Acute Assessment and Plan Assessment: 51yM with aneurysmal SAH, post-bleed day 13, s/p basilar artery coiling 10/05. He has had evidence of cerebral vasospasm on 10/15 s/p IA verapamil. He persists in severe encephalopathy, acute hypoxic respiratory failure. Respiratory failure - Intubated for airway protection - No weaning until neurologically improved and stable, not with high concern for cerebral vasospasm. - ABGs - DuoNeb's as needed for wheezing Aneurysmal Subarachnoid bleed 10/05 - Núñez Veliz 5 Lucas grade 3 - Nimodipine. Status post intra-arterial verapamil for vasospasm on 10/15. - Pravachol - liberalize SBP 140 - 180 given concern for cerebral vasospasm. - Daily TCD's - Basilar tip coiled. Possible Cerebral Vasospasm - discussed with Dr. Alva. will repeat TCDs, if persistently elevated, will get CTA head/neck. - liberalize SBP 140 - 180 Possible Cerebral Salt Wasting - re-send u/a, urine na, serum na, urine and serum osms. - goal euvolemia. Hypertension - nicardipine drip to keep SBP 140 -180 - Labetalol when necessary. DVT GI prophylaxis - Teds SCDs - No pharmacological prophylaxis due to ICH - Protonix IV Urinary Tract Infection -Urinary sepsis. Broad abx coverage started -Taper off vasopressors. Overall impression: Spontaneous subarachnoid hemorrhage, s/p coiling of basilar tip aneurysm. Critically ill as we remain vigilant for vasospasm and control hemodynamics. BP control acceptable. Some peripheral edema accumulating. Resuscitated from septic state 3 days ago after guzman obstructed, remains critically ill. Blood pressure control acceptable. Urine and lungs similar organism, good coverage. Critical Care time exclusive of separately billable procedures: 52 min. Problem Qualifiers (1) Hypertension: Qualified Code: I10 - Essential hypertension Barrett Mccullough MD Oct 18, 2016 14:56
[2016-10-18 16:27] LABS: SODIUM,RANDOM URINE 98 MEQ/L
[2016-10-18 16:30] LABS: OSMOLALITY,URINE 521 MOSM/KG (300-1300)
[2016-10-18 16:37] LABS: CALCIUM 7.9 MG/DL (8.5-10.1); CREATININE 0.8 MG/DL (0.60-1.30)
--- NOTE | 2016-10-18 18:33 | HHI.NSPN ---
History Chief Complaint: intubated and sedated Interval History 51-year-old male admitted with positive subarachnoid hemorrhage. Possible seizure activity. Intubated in the emergency room. 10/05/16: Endovascular coiling 10/07/16 rinse intubated and sedated. Ventriculostomy in place 10/09/16: Remains intubated and sedated. Increased agitation with attempts at sedation vacation 10/17/16: Pupils 2 mm. Intubated and sedated. Somewhat more responsive with decreased sedation. External ventricular drain and closed to reservoir again today. Exam Results Vital Signs Date Time Temp Pulse Resp B/P Pulse Ox O2 Delivery O2 Flow Rate FiO2 10/18/16 16:20 100 40 10/18/16 08:00 Mechanical Ventilator 10/18/16 06:00 71 10/18/16 04:00 99.3 21 156/81 Intake and Output 10/17/16 10/17/16 10/18/16 08:00 16:00 00:00 Intake Total 1134 ml 927 ml 1844 ml Output Total 2015 ml 2799 ml 1700 ml Balance -881 ml -1872 ml 144 ml Physical Examination Intubated and mildly sedated. No eye opening to deep pain or voice or spontaneous Ventricular catheter in place, EVD clamped, ICPs currently 12-15 CN: Pupils 3 mm reactive b/l Mild corneal responses Motor: Minimal withdrawal in both feet to local stimuli, minimal movement upper extremities to deep pain Medical Decision Making Impression and Plan Impression: 1. Stable neurologic status following endovascular coiling for subarachnoid hemorrhage-ruptured basilar tip aneurysm.. Patient underwent angiogram with verapamil injection over the weekend for mild MCA vasospasm. 10/17/16 Transcranial Doppler negative for definite vasospasm Plan: maintenance of systolic blood pressure 130-170. Follow-up CT scan head 10/19/16. Plan discontinue EVD if the CT stable Ventriculostomy closed to reservoir again today. Continuing Keppra due to probable seizure activity reported. Okay for Lovenox from neurosurgery standpoint Ulcer prophylaxis Okay to begin weaning sedation from neurosurgery standpoint Gino Mace MD Oct 18, 2016 18:33
[2016-10-18] MEDS: RESP: ALBUTEROL 2.5 MG/IPRATROPIUM 0.5 MG NEB (PRN) INH (23:55)
[2016-10-19] VITALS (19 sets, daily range): BP systolic 150–181; BP diastolic 82–97; PULSE 65–123; RESP 16–25; TEMP 98.9–100.4; O2SAT 97–100
[2016-10-19] MEDS: AZTREONAM INJ 2,000 MG in SODIUM CHLORIDE 0.9% INJ 100 ML IV SCH (01:39)
[2016-10-19] MEDS: niMODipine 30 MG CAP PO SCH ×12 (01:39→23:00)
[2016-10-19] MEDS: metroNIDAZOLE 500 MG INJ 100 ML IV SCH (03:33)
[2016-10-19] MEDS: DOCUSATE SODIUM 100 MG CAP G-TUBE SCH ×2 (03:33→08:20)
[2016-10-19] MEDS: CHLORHEXIDINE GLUCONATE 2 % 1 PACK (2 CLOTHS) TOP SCH (03:34)
[2016-10-19 04:34] LABS: SODIUM,RANDOM URINE 118 MEQ/L
[2016-10-19 04:35] LABS: OSMOLALITY,URINE 571 MOSM/KG (300-1300)
[2016-10-19 04:37] LABS: HEMATOCRIT 29.8 % (39.0-51.0); HEMOGLOBIN 9.6 GM/DL (13.0-17.0); MEAN CELL VOLUME 90.4 FL (80.0-100.0); MEAN CORPUSCULAR HEMOGLOBIN 29.2 PG (27.0-34.0); MEAN CORPUSCULAR HGB CONC 32.3 % (32.0-36.0); MEAN PLATELET VOLUME 9.6 FL (7.0-11.0); PLATELET COUNT 217 TH/MM3 (150-450); WHITE BLOOD COUNT 12.9 TH/MM3 (4.0-11.0)
--- NOTE | 2016-10-19 05:07 | RADRPT ---
EXAM DATE/TIME: 10/19/2016 04:53 [facility] COMPARISON: No previous studies available for comparison. INDICATIONS : Evaluate for hemorrrhage. RADIATION DOSE: 71.22 CTDIvol (mGy) MEDICAL HISTORY : Cardiovascular disease. Hypertension. Parkinsons. SURGICAL HISTORY : None. ENCOUNTER: Subsequent ACUITY: 2 weeks PAIN SCALE: Non-responsive LOCATION: cranial TECHNIQUE: Multiple contiguous axial images were obtained of the head. Using automated exposure control and adj ustment of the mA and/or kV according to patient size, radiation dose was kept as low as reasonably a chievable to obtain optimal diagnostic quality images. FINDINGS: CEREBRUM: The patient does have some scattered areas of subarachnoid hemorrhage and intraventricular hemorrhage similar to the previous study. The ventricles are normal for age. No evidence of midline shift, ma ss lesion, or acute infarction. No extra-axial fluid collections are seen. Right frontal catheter marques s been placed with its tip within the lateral ventricle on the left POSTERIOR FOSSA: The cerebellum and brainstem are intact. The 4th ventricle is midline. The cerebellopontine angle i s unremarkable. Status post aneurysm coiling EXTRACRANIAL: The visualized portion of the orbits is intact. SKULL: The calvaria is intact. No evidence of skull fracture. CONCLUSION: Chest was aneurysm coiling and with some residual subarachnoid hemorrhage in the right temporal regio n and in the intraventricular system. No new hemorrhage seen. Mynor Bennett MD on October 19, 2016 at 5:04 Board Certified Radiologist. This report was verified electronically.
[2016-10-19 05:36] LABS: BICARBONATE 23.9 MEQ/L (21.0-32.0); CALCIUM 6.8 MG/DL (8.5-10.1); CREATININE 0.84 MG/DL (0.60-1.30)
[2016-10-19 06:03] LABS: TOTAL PROTEIN 5.4 GM/DL (6.4-8.2)
[2016-10-19 06:04] LABS: CALCIUM-PROTEIN CORRECTED 7.7 MG/DL (8.5-10.1)
[2016-10-19] MEDS: POTASSIUM CHLORIDE 25 MEQ EFFERVESCENT TAB PO PRN (06:30)
[2016-10-19] MEDS: POTASSIUM CHLOR 40 MEQ PREMIX 100 ML IV PRN (06:30)
--- NOTE | 2016-10-19 07:37 | HHI.CCPN ---
Subjective Remarks/Hospital Course 51 year old male presents with being brought in as a trauma alert due to a head injury with altered mental status and a diminished GCS. The patient was in the bathroom and fell and hit his head. This was an unwitnessed fall. According to the patient's the patient had been unresponsive for approximately 15 minutes by the time ambulance services arrived. When they arrived the patient was noted to be a GCS of 14, however his mentation would wax and wane and go down as low as 3 again. On arrival to the emergency department he felt extremely nauseated. The CT of the head revealed diffuse subarachnoid bleed. 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 CT head today with some ventricular blood. ICP controlled and patient tolerates lightening of sedation. Volume loaded to maintain SBP > 130s. Opens eyes to voice. 10/07: BP controlled. TCDs to be done today. 10/08: BP control good. Well hydrated. No TCD evidence of spasm. 10/09: TCD today pending. CPP good. No seizure activity. Remains well hydrated. 10/10: TCDs no vasospasm. Remains well hydrated, well perfused. Some peripheral edema as expected. 10/11: Hemodynamics good. Bladder spasm continues. Try Flomax - an alpha kendall , will not impair cerebral vessels. 10/12: Episode of sepsis last night from obstructed Paul, JONH evident. Much improved now. 10/13: JONH improving. Narrow abx to GNR. 10/14: Aztreonam started for sputum, urine. CT Head acceptable. 10/15: No change in neuro status. BP control good. 10/16: Remains sedated, orally intubated on mechanical ventilation. Ventriculostomy in place. Underwent angiogram with injection of verapamil intra -arterial for minimal vasospasm on 10/15 10/17: Remains sedated, orally intubated on mechanical ventilation. Ventriculostomy drained 65 cc over 8 hours overnight. 10/18: off sedation. withdraws to pain. does not follow commands. per nursing, this is an exam change and he was previously following commands. 10/19: continues off sedation. ICP stable around 5. neuro exam stable. TCDs yesterday with questionable early spasm, but given stable neuro exam, decided to repeat TCD today to eval trend. Objective Vital Signs Date Time Temp Pulse Resp B/P Pulse Ox O2 Delivery O2 Flow Rate FiO2 10/19/16 06:00 86 10/19/16 05:10 98 100 10/19/16 04:00 98.9 19 166/89 10/18/16 19:00 Mechanical Ventilator Intake and Output 10/18/16 10/18/16 10/19/16 08:00 16:00 00:00 Intake Total 1847 ml 1383 ml 928 ml Output Total 2900 ml 2025 ml 1560 ml Balance -1053 ml -642 ml -632 ml Result Diagram: 10/19/16 0400 10/19/16399 Imaging Last 24 hours Impressions Pelvis X-Ray 10/05/16109 Signed Impressions: Service Date/Time: Wednesday, October 05, 2016 01:22 - CONCLUSION: Unremarkable examination of the pelvis. Ruben Acuña Jr., MD Head CT 10/05/16109 Signed Impressions: Service Date/Time: Wednesday, October 05, 2016 01:38 - CONCLUSION: Diffuse subarachnoid hemorrhage. Ruben Acuña Jr., MD Chest X-Ray 10/05/16109 Signed Impressions: Service Date/Time: Wednesday, October 05, 2016 01:22 - CONCLUSION: No acute disease. Ruben Acuña Jr., MD Chest CT 10/05/16109 Signed Impressions: Service Date/Time: Wednesday, October 05, 2016 01:46 - CONCLUSION: 1. No acute intrathoracic abnormality. 2. Bibasilar atelectasis. 3. Cardiomegaly. 4. Prior granulomatous disease. Ruben Acuña Jr., MD Cervical Spine CT 10/05/16109 Signed Impressions: Service Date/Time: Wednesday, October 05, 2016 01:40 - CONCLUSION: 1. No fracture or dislocation. 2. Multilevel degenerative changes. Ruben Acuña Jr., MD Abdomen/Pelvis CT 10/05/16109 Signed Impressions: Service Date/Time: Wednesday, October 05, 2016 01:46 - CONCLUSION: 1. No acute trauma. 2. Rounded area of decreased density involving the pancreatic head. I cannot completely exclude pancreatic head mass. At some point MRI of the pancreas is suggested to further evaluate. 3. Focal area of poor enhancement involving the left kidney. This may relate to an area of parenchymal scarring. I cannot completely exclude a mass. This can be further assessed with MRI as well. Ruben Acuña Jr., MD Objective Remarks GENERAL: middle-aged male lying in bed, obtunded. SKIN: Dry HEAD: Normocephalic. EYES: Pupils are 2 mm and reactive bilaterally. NECK: Supple, trachea midline. CARDIOVASCULAR: Regular rate and rhythm without murmurs, gallops, or rubs. No JVD. RESPIRATORY: Orally intubated on mechanical ventilation, Breath sounds equal bilaterally. Clear, no wheezes or crackles. Good soha excursions. GASTROINTESTINAL: Abdomen soft, non-tender, nondistended. BS active. No guarding. EXTREMITIES: Nonfocal clubbing cyanosis or edema, well perfused. NEURO: does not open eyes. localizes in left upper extremity. weakly purposeful in RUE. withdraw bilateral lower extremity. does not follow commands. grimace to pain only. Ventric in place A/P Problem List: (1) 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 ICD Code: I60.8 Status: Acute (2) Intracranial hemorrhage ICD Code: I62.9 Status: Acute (3) Hypertension ICD Code: I10 Status: Acute Assessment and Plan Assessment: 51yM with aneurysmal SAH, post-bleed day 14, s/p basilar artery coiling 10/05. He has had evidence of cerebral vasospasm on 10/15 s/p IA verapamil. He persists in severe encephalopathy, acute hypoxic respiratory failure. Respiratory failure - Intubated for airway protection - No weaning until neurologically improved and stable, not with high concern for cerebral vasospasm. - DuoNeb's as needed for wheezing Aneurysmal Subarachnoid bleed 10/05 - Núñez Veliz 5 Lucas grade 3 - Nimodipine. Status post intra-arterial verapamil for vasospasm on 10/15. - Pravachol - liberalize SBP 140 - 180 given concern for cerebral vasospasm. - Daily TCD's - Basilar tip coiled. Possible Cerebral Vasospasm - repeat TCDs today. if uptrending, will consider angio. - liberalize SBP 140 - 180 Possible Cerebral Salt Wasting - u/a, urine na, urine SG re-assuring. monitor closely. - goal euvolemia. Hypertension - nicardipine drip to keep SBP 140 -180 - Labetalol when necessary. DVT GI prophylaxis - Teds SCDs - No pharmacological prophylaxis due to ICH - Protonix IV Urinary Tract Infection -s/p full course of aztreonam/flagyl. Overall impression: Spontaneous subarachnoid hemorrhage, s/p coiling of basilar tip aneurysm. Critically ill as we remain vigilant for vasospasm and control hemodynamics. BP control acceptable. Critical Care time exclusive of separately billable procedures: 42 min. Problem Qualifiers (1) Hypertension: Qualified Code: I10 - Essential hypertension Barrett Mccullough MD Oct 19, 2016 07:37
[2016-10-19] MEDS: LACTULOSE SYRUP 20 GM/30 ML CUP PO SCH (08:19)
[2016-10-19] MEDS: ARTIFICIAL TEARS OPTH SOLN 15 ML BTL EACH EYE SCH ×3 (08:19→17:50)
[2016-10-19] MEDS: POLYETHYLENE GLYCOL 17 GM PKG PO SCH (08:19)
[2016-10-19] MEDS: SODIUM CHLORIDE 0.9% FLUSH 10 ML FLUSH IV FLUSH SCH (08:19)
[2016-10-19] MEDS: levETIRAcetam INJ 500 MG in SODIUM CHLORIDE 0.9% INJ 100 ML IV SCH ×2 (08:20→20:29)
[2016-10-19] MEDS: PRAVASTATIN SOD 40 MG TAB PO SCH (08:20)
[2016-10-19] MEDS: PANTOPRAZOLE SODIUM 40 MG VIAL IV SCH (08:20)
--- NOTE | 2016-10-19 10:59 | RADRPT ---
EXAM DATE/TIME: 10/19/2016 08:27 [facility] COMPARISON: US TRANSCRANIAL DOPPLER COMPLETE, October 18, 2016, 7:56. INDICATIONS : Subarachnoid hemorrhage. MEDICAL HISTORY : Hypertension. Pancreatitis. TIA. Migraine. Cardiovascular Disease. SURGICAL HISTORY : Ventriculostomy clamp. Ventriculostomy drain. ENCOUNTER: [facility] ACUITY: 2 weeks PAIN SCORE: Nonresponsive. LOCATION: Bilateral cranial Current Exam: Oct 19, 2016 [place] Ratio: Right: 3.5 Left: 6.1 Gregorio Ratio: Right: 1.4 Left: 1.8 Previous Exam: Oct 18, 2016 [place] Ratio: Right: 1.3 Left: 3.5 Gregorio Ratio: Right: 1.4 Left: 2.0 FINDINGS: Examination performed at bedside. Real-time ultrasound with the assistance of color and spectral Dop pler was utilized to evaluate the intracerebral circulation. Time-averaged maximal velocities are ca lculated in cm/s. Increasing velocities and ratios are identified in the middle cerebral arteries indicative of mild-to -moderate spasm of the right and moderate to severe spasm on the left. CONCLUSION: Developing vasospasm with mild/moderate spasm identified on the right and moderate to severe spasm on the left. Leonel Alva MD on October 19, 2016 at 10:40 Board Certified Radiologist. This report was verified electronically.
[2016-10-19] MEDS ORDERED: IOHEXOL 350 MG/ML 10 ML VIAL (for RAD DIAG) IV ONE (14:36)
[2016-10-19] MEDS ORDERED: VERAPAMIL HCL 5 MG/2 ML VIAL ONE ×2 (16:05→17:27)
--- NOTE | 2016-10-19 16:14 | RADRPT ---
EXAM DATE/TIME: 10/19/2016 14:19 [facility] COMPARISON: CTA CAROTID ARTERIES W 3D RECON, October 05, 2016, 3:13. INDICATIONS : Evlauate for vasospasm IV CONTRAST: 70 cc Omnipaque 350 (iohexol) IV RADIATION DOSE: 28.14 CTDIvol (mGy) MEDICAL HISTORY : Cardiovascular disease. Pancreatitis. Hypertension. SURGICAL HISTORY : None. ENCOUNTER: Initial ACUITY: 1 day PAIN SCALE: Non-responsive LOCATION: neck Elevated flow velocities and ICA/CCA ratios have been found to correlate with increased degrees of vessel stenosis, calculated as percentage of diameter relative to a normal segment of distal ICA/CCA. TECHNIQUE: Volumetric scanning was performed using a multirow detector CT scanner. The data was post processed with a variety of visualization algorithms including full-volume maximum intensity pro jection, multiplanar sliding thin-slab reformation, curved-planar reformation, and surface-rendering techniques. Using automated exposure control and adjustment of the mA and/or kV according to patient size, radiation dose was kept as low as reasonably achievable to obtain optimal diagnostic quality i mages. FINDINGS: AORTIC ARCH: There is a three-vessel origin of the great vessels from the aorta. No evidence of ostial narrowing. RIGHT CAROTID: The common carotid artery is intact. The carotid bulb has a normal configuration w ithout ulceration or narrowing. The internal carotid artery lumen is smooth without stenosis. The ex ternal carotid artery is intact. LEFT CAROTID: The common carotid artery is intact. The carotid bulb has a normal configuration w ithout ulceration or narrowing. The internal carotid artery lumen is smooth without stenosis. The e xternal carotid artery is intact. VERTEBRALS: The vertebral arteries have a symmetric diameter. No stenotic lesions are seen. CONCLUSION: Negative for dissection or significant stenosis. Christian Song MD FACR on October 19, 2016 at 16:11 Board Certified Radiologist. This report was verified electronically.
--- NOTE | 2016-10-19 16:51 | RADRPT ---
EXAM DATE/TIME: 10/19/2016 14:19 [facility] COMPARISON: CTA BRAIN W 3D RECON, October 11, 2016, 10:15. INDICATIONS : Evaluate for vasospasm IV CONTRAST: 70 cc Omnipaque 350 (iohexol) IV RADIATION DOSE: 28.14 CTDIvol (mGy) MEDICAL HISTORY : Cardiovascular disease. Hypertension. Pancreatitis. SURGICAL HISTORY : None. ENCOUNTER: Initial ACUITY: 1 day PAIN SCALE: Non-responsive LOCATION: cranial TECHNIQUE: Volumetric scanning was performed using a multi-row detector CT scanner. The data was post processed with a variety of visualization algorithms including full volume maximum intensity projection, multi -planar sliding thin slab reformation, curved planar reformation, and surface rendering techniques. Using automated exposure control and adjustment of the mA and/or kV according to patient size, radiat ion dose was kept as low as reasonably achievable to obtain optimal diagnostic quality images. FINDINGS: There is excellent visualization of the major intracranial arteries out to the second-order branch ve ssels. There is interval development of significant vasospasm in the left M1 and M2 segments as well as the left A1 and A2 segments. Mild spasm of the basilar. The right MCA territory remains patent. CONCLUSION: 1. Interval development of significant vasospasm in the left MCA and SRI territories. 2. Mild vasospasm in the basilar artery.. Gume Mckeon MD on October 19, 2016 at 16:39 Board Certified Radiologist. This report was verified electronically.
[2016-10-19] MEDS ORDERED: MIDAZOLAM HCL 2 MG/2 ML VIAL ONE (17:18)
[2016-10-19] MEDS ORDERED: IODIXANOL 320 MG/ML 50 ML VIAL (for RAD SPEC) I-ARTERIAL ONE (18:08)
--- NOTE | 2016-10-19 18:30 | PD.RAD ---
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 10mg Verapamil infused into left ICA Gume Mckeon MD Oct 19, 2016 18:30
[2016-10-19] MEDS: ALTEPLASE RECOMBINANT 2 MG VIAL IV FLUSH PRN (18:43)
[2016-10-19] MEDS: diphenhydrAMINE HCL 50 MG/ML VIAL IV PUSH PRN (20:30)
--- NOTE | 2016-10-19 21:47 | HHI.NSPN ---
History Chief Complaint: intubated and sedated Interval History 51-year-old male admitted with positive subarachnoid hemorrhage. Possible seizure activity. Intubated in the emergency room. 10/05/16: Endovascular coiling 10/07/16 rinse intubated and sedated. Ventriculostomy in place 10/09/16: Remains intubated and sedated. Increased agitation with attempts at sedation vacation 10/17/16: Pupils 2 mm. Intubated and sedated. Somewhat more responsive with decreased sedation. External ventricular drain and closed to reservoir again today. Exam Results Vital Signs Date Time Temp Pulse Resp B/P Pulse Ox O2 Delivery O2 Flow Rate FiO2 10/19/16 20:00 106 10/19/16 19:49 100 40 10/19/16 19:00 Mechanical Ventilator 10/19/16 18:45 99.5 16 176/97 Intake and Output 10/18/16 10/18/16 10/19/16 08:00 16:00 00:00 Intake Total 1847 ml 1383 ml 928 ml Output Total 2900 ml 2025 ml 1560 ml Balance -1053 ml -642 ml -632 ml Physical Examination Intubated and mildly sedated. No eye opening to deep pain or voice or spontaneous Ventricular catheter in place, EVD clamped, ICPs currently 12-15 CN: Pupils 3 mm reactive b/l Mild corneal responses Motor: Minimal withdrawal in both feet to local stimuli, minimal movement upper extremities to deep pain Lab, Micro, Other Results Last [address] 10/19/16 0600 Signed Impressions: Service Date/Time: Wednesday, October 19, 2016 04:53 - CONCLUSION: Chest was aneurysm coiling and with some residual subarachnoid hemorrhage in the right temporal region and in the intraventricular system. No new hemorrhage seen. Mynor Bennett MD Neck CTA 10/19/16 0000 Signed Impressions: Service Date/Time: Wednesday, October 19, 2016 14:19 - CONCLUSION: Negative for dissection or significant stenosis. Christian Song MD FACR Head CTA 10/19/16 0000 Signed Impressions: Service Date/Time: Wednesday, October 19, 2016 14:19 - CONCLUSION: 1. Interval development of significant vasospasm in the left MCA and SRI territories. 2. Mild vasospasm in the basilar artery.. Gume Mckeon MD Transcranial Doppler Study Complete 10/19/16 0000 Signed Impressions: Service Date/Time: Wednesday, October 19, 2016 08:27 - CONCLUSION: Developing vasospasm with mild/moderate spasm identified on the right and moderate to severe spasm on the left. Leonel Alva MD Laboratory Tests Test 10/19/16 10/19/16 04:00 12:45 White Blood Count 12.9 TH/MM3 Red Blood Count 3.30 MIL/MM3 Hemoglobin 9.6 GM/DL Hematocrit 29.8 % Mean Corpuscular Volume 90.4 FL Mean Corpuscular Hemoglobin 29.2 PG Mean Corpuscular Hemoglobin 32.3 % Concent Red Cell Distribution Width 13.0 % Platelet Count 217 TH/MM3 Mean Platelet Volume 9.6 FL Urine Specific [place] 1.015 Urine Osmolality 571 MOSM/KG Urine Random Sodium 118 MEQ/L Sodium Level 145 MEQ/L Potassium Level 3.1 MEQ/L 4.1 MEQ/L Chloride Level 112 MEQ/L Carbon Dioxide Level 23.9 MEQ/L Anion Gap 9 MEQ/L Blood Urea Nitrogen 25 MG/DL Creatinine 0.84 MG/DL Estimat Glomerular Filtration 96 ML/MIN Rate Random Glucose 213 MG/DL Serum Osmolality 303 MOSM/KG Calcium Level 6.8 MG/DL Protein Corrected Calcium 7.7 MG/DL Total Protein 5.4 GM/DL Medical Decision Making Impression and Plan Impression: 1. Stable neurologic status following endovascular coiling for subarachnoid hemorrhage-ruptured basilar tip aneurysm.. Patient underwent angiogram with verapamil injection again today for treatment of persistent left greater than right MCA vasospasm Plan: Continue systolic blood pressure 130-170. Continue EVD at present. CT scan head today reveals an evolving primarily left basal ganglia region CVA Continuing Keppra due to probable seizure activity reported. Okay for Lovenox from neurosurgery standpoint Ulcer prophylaxis Gino Mace MD Oct 19, 2016 21:47
[2016-10-19] MEDS: PHENYLEPHRINE INJ 40 MG in SODIUM CHLORID 0.9% 500 ML INJ 496 ML IV SCH (23:52)
[2016-10-20] VITALS (19 sets, daily range): BP systolic 155–190; BP diastolic 77–96; PULSE 58–83; RESP 17–21; TEMP 100.2–102.7; O2SAT 98–100
[2016-10-20] MEDS: niMODipine 30 MG CAP PO SCH ×12 (02:05→23:15)
[2016-10-20] MEDS: CHLORHEXIDINE GLUCONATE 2 % 1 PACK (2 CLOTHS) TOP SCH (03:05)
[2016-10-20] MEDS: PHENYLEPHRINE INJ 40 MG in SODIUM CHLORID 0.9% 500 ML INJ 496 ML IV SCH ×4 (03:27→16:29)
[2016-10-20] MEDS: DOCUSATE SODIUM 100 MG CAP G-TUBE SCH ×2 (05:55→15:00)
[2016-10-20] MEDS: ACETAMINOPHEN 325 MG TAB PO PRN ×5 (06:25→20:13)
[2016-10-20 06:28] LABS: HEMATOCRIT 24.8 % (39.0-51.0); HEMOGLOBIN 8.2 GM/DL (13.0-17.0); MEAN CORPUSCULAR HEMOGLOBIN 29.9 PG (27.0-34.0); MEAN CORPUSCULAR HGB CONC 33.2 % (32.0-36.0); MEAN PLATELET VOLUME 8.9 FL (7.0-11.0); PLATELET COUNT 277 TH/MM3 (150-450); RED BLOOD COUNT 2.76 MIL/MM3 (4.50-5.90); RED CELL DISTRIBUTION WIDTH 13.3 % (11.6-17.2); WHITE BLOOD COUNT 15.9 TH/MM3 (4.0-11.0)
[2016-10-20 06:53] LABS: BICARBONATE 21.3 MEQ/L (21.0-32.0); CALCIUM 6.3 MG/DL (8.5-10.1); CREATININE 0.72 MG/DL (0.60-1.30)
[2016-10-20] MEDS: diphenhydrAMINE HCL 50 MG/ML VIAL IV PUSH PRN (07:03)
[2016-10-20] MEDS: POTASSIUM CHLORIDE 25 MEQ EFFERVESCENT TAB PO PRN (07:04)
[2016-10-20 07:08] LABS: TOTAL PROTEIN 4.9 GM/DL (6.4-8.2)
[2016-10-20 07:25] LABS: CALCIUM-PROTEIN CORRECTED 7.4 MG/DL (8.5-10.1)
[2016-10-20] MEDS: NOREPINEPHRINE INJ 4 MG in SODIUM CHLOR 0.9% 250 ML INJ 250 ML IV SCH ×3 (08:56→16:29)
[2016-10-20] MEDS: PRAVASTATIN SOD 40 MG TAB PO SCH (08:56)
[2016-10-20] MEDS: levETIRAcetam INJ 500 MG in SODIUM CHLORIDE 0.9% INJ 100 ML IV SCH ×2 (08:56→21:09)
[2016-10-20] MEDS: PANTOPRAZOLE SODIUM 40 MG VIAL IV SCH (08:56)
[2016-10-20] MEDS: LACTULOSE SYRUP 20 GM/30 ML CUP PO SCH (08:56)
[2016-10-20] MEDS: ARTIFICIAL TEARS OPTH SOLN 15 ML BTL EACH EYE SCH ×3 (08:57→18:27)
[2016-10-20] MEDS: SODIUM CHLORIDE 0.9% FLUSH 10 ML FLUSH IV FLUSH SCH (08:57)
[2016-10-20] MEDS: POLYETHYLENE GLYCOL 17 GM PKG PO SCH (08:57)
--- NOTE | 2016-10-20 10:55 | RADRPT ---
EXAM DATE/TIME: 10/19/2016 16:06 [facility] COMPARISON: ANGIOGRAM, CEREBRAL WO ARCH, October 15, 2016, 13:03. INDICATIONS : Patient in need of cerebral angiogram for cerebral vasospasm, s/p cerebral aneurysm coiling MEDICAL HISTORY : History of SMH, CVA, HTN, pancreatitis, respiratory failure. SURGICAL HISTORY : History of cerebral coiling, ventriculostomy drain placement. ENCOUNTER: Subsequent ACUITY: 2 weeks PAIN SCORE: Nonresponsive. FLUORO TIME: 27.1 minutes IMAGE SERIES: 7 ACCESS SITE: Right Femoral artery SEDATION TIME: 45 minutes CONTRAST: 100 cc Visipaque (iodixanol) MEDICATION(S): 1.) 2 mg midazolam (Versed) IV 2.) 10 mg Verapamil IART PROCEDURE : 1. Ultrasound-guided puncture of the access site. 2. Conscious sedation with continuous EKG and Oximetry monitoring. 3. Angiography of the left internal carotid 4. Angiography of the brachiocephalic 5. Spasmolytic infusion, left internal carotid The risks, benefits and alternatives to the procedure were explained and verbal and written consent w as obtained. The site was prepped in sterile fashion. Full sterile technique was used, including ca p, mask, sterile gloves and gown and a large sterile sheet. Hand hygiene and 2% chlorhexidine and/or betadine/alcohol prep was utilized per protocol for cutaneous antisepsis. The skin and subcutaneous tissues were infiltrated with local anesthetic solution. With ultrasound and fluoroscopic guidance the selected artery was punctured and a vascular sheath was placed DILLON 2 catheter was used to initially select the right brachiocephalic. Contrast injection confirmed po sition. With the JB2 catheter, I had some difficulty selecting the left common carotid. Therefore, th e catheter was exchanged for a hockey-stick configuration which was used to select the common carotid artery. Position was confirmed the positive contrast. The catheter and wire were then manipulated in to the ICA. Contrast injection again confirmed position and demonstrated significant vasospasm within the MCA and SRI territories. A total of 10 mg of verapamil was infused IA The puncture site was closed with manual pressure and hemostasis was obtained. The patient tolerated the procedure well and there were no complications. Conscious sedation was performed with the prescribed dosages and duration as above in the presence of an independent trained radiology nurse to assist in the monitoring of the patient. EKG and oximetry remained stable throughout the procedure. CONCLUSION: 1. Vasospasm in the left MCA and SRI territories 2. Spasmolytic infusion, left internal carotid artery as above.. Gume Mckeon MD on October 20, 2016 at 10:48 Board Certified Radiologist. This report was verified electronically.
--- NOTE | 2016-10-20 10:55 | HHI.PR ---
Neuropsych Progress Notes/Response to Tx Contents of Sessions: Level of Consciousness Time with Patient: 15 minutes Premorbid psychological status Premorbid Cognitive, Emotional and Behavioral Status: Unable to Assess. The patient past history is unknown as there has been no family present. Behavioral Reactions of Patient and Family/Support System: Unable to Assess. The patients family is not present. Emotional/Behavioral Status of Patient and Family/Support System: Unable to Assess. Pertinent issues, if appropriate to this patients clinical care, are described in detail above. Maximizing acute care outcome It is recommended that the patient be monitored for emergent behavioral impulsivity as the medical condition evolves. This patients neuropathological challenges may limit their rehabilitation potential going forward, and these challenges will require specialized therapeutic skills to maximize outcome. Anticipated Problems Ongoing areas of concern will include behavioral impulsivity, lack of insight and judgment, which is expected to improve with time and treatment. Treatment Plan This clinician will continue to follow with you throughout the course of this patients acute care stay, and I will be available to meet with the patients family/support system to facilitate their understanding and the ongoing care of their family member. The goals of neuropsychological intervention shall be both educational and supportive to the family/support system as is deemed clinically appropriate. [facility] Level: I:No response-total assistance Impression This patient has suffered a significant traumatic brain injury secondary to a fall on 10/05/2016. He is expected to have residual neurocognitive deficits, and will likely require some level of neuro rehabilitation following his acute stay and medical stabilization. Diagnosis: (1) Major neurocognitive disorder as late effect of traumatic brain injury with behavioral disturbance Status: Acute Progress Note Narrative Ongoing follow-up of patient. This is day 16 post injury. He is reportedly off sedation and his ICPs are stable. Follow-up head CT showed an evolving left basal ganglia hemorrhagic stroke. He is on Keppra for prophylaxis. Neurobehaviorally he appears consistent with a Rancho I. I will continue to follow. Jeremy Workman PhD Oct 20, 2016 10:55
--- NOTE | 2016-10-20 12:24 | HHI.CCPN ---
Subjective Remarks/Hospital Course 51 year old male presents with being brought in as a trauma alert due to a head injury with altered mental status and a diminished GCS. The patient was in the bathroom and fell and hit his head. This was an unwitnessed fall. According to the patient's the patient had been unresponsive for approximately 15 minutes by the time ambulance services arrived. When they arrived the patient was noted to be a GCS of 14, however his mentation would wax and wane and go down as low as 3 again. On arrival to the emergency department he felt extremely nauseated. The CT of the head revealed diffuse subarachnoid bleed. 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 CT head today with some ventricular blood. ICP controlled and patient tolerates lightening of sedation. Volume loaded to maintain SBP > 130s. Opens eyes to voice. 10/07: BP controlled. TCDs to be done today. 10/08: BP control good. Well hydrated. No TCD evidence of spasm. 10/09: TCD today pending. CPP good. No seizure activity. Remains well hydrated. 10/10: TCDs no vasospasm. Remains well hydrated, well perfused. Some peripheral edema as expected. 10/11: Hemodynamics good. Bladder spasm continues. Try Flomax - an alpha kendall , will not impair cerebral vessels. 10/12: Episode of sepsis last night from obstructed Guzman, JONH evident. Much improved now. 10/13: JONH improving. Narrow abx to GNR. 10/14: Aztreonam started for sputum, urine. CT Head acceptable. 10/15: No change in neuro status. BP control good. 10/16: Remains sedated, orally intubated on mechanical ventilation. Ventriculostomy in place. Underwent angiogram with injection of verapamil intra -arterial for minimal vasospasm on 10/15 10/17: Remains sedated, orally intubated on mechanical ventilation. Ventriculostomy drained 65 cc over 8 hours overnight. 10/18: off sedation. withdraws to pain. does not follow commands. per nursing, this is an exam change and he was previously following commands. 10/19: continues off sedation. ICP stable around 5. neuro exam stable. TCDs yesterday with questionable early spasm, but given stable neuro exam, decided to repeat TCD today to eval trend. 10/20: off sedation. taken yesterday for angio with IA verapamil for left MCA, SRI spasm. Objective Vital Signs Date Time Temp Pulse Resp B/P Pulse Ox O2 Delivery O2 Flow Rate FiO2 10/20/16 10:00 68 10/20/16 08:00 101.5 21 165/90 99 10/20/16 08:00 100 10/20/16 07:00 Mechanical Ventilator Intake and Output 10/19/16 10/19/16 10/20/16 08:00 16:00 00:00 Intake Total 792 ml 875 ml 301 ml Output Total 1450 ml 1308 ml 2150 ml Balance -658 ml -433 ml -1849 ml Result Diagram: 10/20/16 0600 10/20/16 1120 Imaging Last 24 hours Impressions Pelvis X-Ray 10/05/16109 Signed Impressions: Service Date/Time: Wednesday, October 05, 2016 01:22 - CONCLUSION: Unremarkable examination of the pelvis. Ruben Acuña Jr., MD Head CT 10/05/16109 Signed Impressions: Service Date/Time: Wednesday, October 05, 2016 01:38 - CONCLUSION: Diffuse subarachnoid hemorrhage. Ruben Acuña Jr., MD Chest X-Ray 10/05/16109 Signed Impressions: Service Date/Time: Wednesday, October 05, 2016 01:22 - CONCLUSION: No acute disease. Ruben Acuña Jr., MD Chest CT 10/05/16109 Signed Impressions: Service Date/Time: Wednesday, October 05, 2016 01:46 - CONCLUSION: 1. No acute intrathoracic abnormality. 2. Bibasilar atelectasis. 3. Cardiomegaly. 4. Prior granulomatous disease. Ruben Acuña Jr., MD Cervical Spine CT 10/05/16109 Signed Impressions: Service Date/Time: Wednesday, October 05, 2016 01:40 - CONCLUSION: 1. No fracture or dislocation. 2. Multilevel degenerative changes. Ruben Acuña Jr., MD Abdomen/Pelvis CT 10/05/16109 Signed Impressions: Service Date/Time: Wednesday, October 05, 2016 01:46 - CONCLUSION: 1. No acute trauma. 2. Rounded area of decreased density involving the pancreatic head. I cannot completely exclude pancreatic head mass. At some point MRI of the pancreas is suggested to further evaluate. 3. Focal area of poor enhancement involving the left kidney. This may relate to an area of parenchymal scarring. I cannot completely exclude a mass. This can be further assessed with MRI as well. Ruben Acuña Jr., MD Objective Remarks GENERAL: middle-aged male lying in bed, obtunded. SKIN: Dry HEAD: Normocephalic. EYES: Pupils are 2 mm and reactive bilaterally. NECK: Supple, trachea midline. CARDIOVASCULAR: Regular rate and rhythm. No JVD. RESPIRATORY: Orally intubated on mechanical ventilation, Breath sounds equal bilaterally. Clear, no wheezes or crackles. Good soha excursions. GASTROINTESTINAL: Abdomen soft, non-tender, nondistended. BS active. No guarding. EXTREMITIES: Nonfocal clubbing cyanosis or edema, well perfused. NEURO: does not open eyes. purposeful LUE, withdraws RUE. withdraw bilateral lower extremity. does not follow commands. grimace to pain only. Ventric in place A/P Problem List: (1) 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 ICD Code: I60.8 Status: Acute (2) Intracranial hemorrhage ICD Code: I62.9 Status: Acute (3) Hypertension ICD Code: I10 Status: Acute Assessment and Plan Assessment: 51yM with aneurysmal SAH, post-bleed day 15, s/p basilar artery coiling 10/05. S/p IA Verapamil 10/15 and 10/19 for cerebral vasospasm. He persists in severe encephalopathy, acute hypoxic respiratory failure. New fever and relative hypotension requiring escalating vasopressors would suggest early septic shock, and patient clinically declining. off pathway. critically ill. Plan: Neuro: Acute encephalopathy Basilar Aneurysm Aneurysmal Subarachnoid Hemorrhage Aneurysmal Subarachnoid bleed 10/05 Cerebral Vasospasm - Núñez Veliz 5 Lucas grade 3 - Nimodipine. Status post intra-arterial verapamil for vasospasm on 10/15, 10/19 - Pravachol - press patient to SBP 180 - 200 given cerebral vasospasm. - Daily TCD's - Basilar tip coiled. - daily TCDs - s/p angio with IA verapamil 10/15, 10/19 - goal euvolemia Respiratory: Acute Hypoxic and Hypercarbic Respiratory Failure - Intubated for airway protection - No weaning until neurologically improved and stable, not with high concern for cerebral vasospasm. - requires tracheostomy, but not with evidence of ongoing cerebral vasospasm. - DuoNeb's as needed for wheezing CV: Inadequate Cerebral Perfusion - press patient to SBP 180 - 200 given cerebral vasospasm. - place arterial line - levophed, vasopressin for target blood pressure for cerebral perfusion. Renal: - goal euvolemia - guzman for accurate I/Os - strict I/Os FEN/GI: Acute Protein Calorie Malnutrition- mild -- vital high protein 40mL/hr. -- daily BMP -- ICU electrolyte protocol. Heme/ID: Fever Leukocytosis prior UTI- s/p full course abx -- white culture, including CSF -- start vancomycin with pharmacy dosing -- cefepime 2gm iv q8hr -- flagyl 500mg iv q6hr Endocrine: Hyperglycemia of critical illness -- SSI Prophylaxis: - Teds SCDs - No pharmacological prophylaxis due to ICH - Protonix IV Dispo: remain in the ICU. he remains critically ill. Critical Care time exclusive of separately billable procedures: 81 min. Problem Qualifiers (1) Hypertension: Qualified Code: I10 - Essential hypertension Barrett Mccullough MD Oct 20, 2016 12:24
[2016-10-20] MEDS ORDERED: VANCOMYCIN INJ 1,250 MG in SODIUM CHLOR 0.9% 250 ML INJ 250 ML IV ONE ×2 (12:30→15:00)
[2016-10-20] MEDS: metroNIDAZOLE 500 MG INJ 100 ML IV SCH ×2 (12:48→20:02)
[2016-10-20] MEDS: CEFEPIME INJ 2,000 MG in SODIUM CHLORIDE 0.9% INJ 100 ML IV SCH ×2 (12:48→20:57)
[2016-10-20 13:46] LABS: BACTERIA, URINE RARE /hpf; BILIRUBIN, URINE NEG (NEG); BLOOD, URINE SMALL (NEG); GLUCOSE,URINE 70 mg/dL (NEG); KETONE, URINE NEG (NEG); MUCUS URINE FEW /lpf (OCC); NITRITE,URINE NEG (NEG); SQUAMOUS EPITHELIAL CELL URINE <1 /hpf (0-5); URINE COLOR LIGHT-YELLOW (YELLW/STRAW); URINE LEUKOCYTE ESTERASE NEG (NEG)
[2016-10-20 14:12] LABS: TOTAL PROTEIN,CSF 27.8 MG/DL (15.0-45.0)
--- NOTE | 2016-10-20 14:43 | HHI.NSPN ---
(Meir Sánchez) Note Status Status: Progress Note (Meir Sánchez) Interval History Interval History 51 year old male presents with being brought in as a trauma alert due to a head injury with altered mental status and a diminished GCS. The patient was in the bathroom and fell and hit his head. This was an unwitnessed fall. According to the patient's the patient had been unresponsive for approximately 15 minutes by the time ambulance services arrived. When they arrived the patient was noted to be a GCS of 14, however his mentation would wax and wane and go down as low as 3 again. On arrival to the emergency department he felt extremely nauseated. The CT of the head revealed diffuse subarachnoid bleed. Emergently intubated in the trauma bay. Possible seizure activity. Intubated in the emergency room. 10/05/16: Endovascular coiling 10/07/16 rinse intubated and sedated. Ventriculostomy in place 10/09/16: Remains intubated and sedated. Increased agitation with attempts at sedation vacation 10/17/16: Pupils 2 mm. Intubated and sedated. Somewhat more responsive with decreased sedation. External ventricular drain and closed to reservoir again today. 10/19/16: TCD with vasospasm, to angio with 10 mg Verapamil IA given. 10/20/16: Patient with fevers up to 102.8 per Nursing and cultures sent, Nursing reports CSF milky & with sediment. TCD being repeated this afternoon due to vast difference from that done this morning and yesterday. 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 No increase in ICP. (Meir Sánchez) Labs, Micro, & Vital Signs Results Allergies Coded Allergies Type Severity Reaction Last Updated Verified Penicillin Allergy Unknown 10/06/16 Yes Sulfa Allergy Unknown 10/06/16 Yes Recent Impressions Head CT 10/19/16 0600 Signed Impressions: Service Date/Time: Wednesday, October 19, 2016 04:53 - CONCLUSION: Chest was aneurysm coiling and with some residual subarachnoid hemorrhage in the right temporal region and in the intraventricular system. No new hemorrhage seen. Mynor Bennett MD Neck CTA 10/19/16 0000 Signed Impressions: Service Date/Time: Wednesday, October 19, 2016 14:19 - CONCLUSION: Negative for dissection or significant stenosis. Christian Song MD FACR Head CTA 10/19/16 0000 Signed Impressions: Service Date/Time: Wednesday, October 19, 2016 14:19 - CONCLUSION: 1. Interval development of significant vasospasm in the left MCA and SRI territories. 2. Mild vasospasm in the basilar artery.. Gume Mckeon MD Cerebral Arteriogram 10/19/16 0000 Signed Impressions: Service Date/Time: Wednesday, October 19, 2016 16:06 - CONCLUSION: 1. Vasospasm in the left MCA and SRI territories 2. Spasmolytic infusion, left internal carotid artery as above.. Gume Mckeon MD Transcranial Doppler Study Complete 10/19/16 0000 Signed Impressions: Service Date/Time: Wednesday, October 19, 2016 08:27 - CONCLUSION: Developing vasospasm with mild/moderate spasm identified on the right and moderate to severe spasm on the left. Leonel Alva MD Transcranial Doppler Study Complete 10/18/16 0000 Signed Impressions: Service Date/Time: Tuesday, October 18, 2016 07:56 - CONCLUSION: Transcranial Doppler would suggest developing vasospasm in the left MCA territory. Gume Mckeon MD 10/18//18/174/19/174/19/174/20/174//17 06:00 18:00 06:00 18:00 06:00 18:00 Intake Total 3691 ml 1383 ml 1720 ml 875 ml 2026 ml Output Total 4600 ml 2025 ml 3010 ml 1308 ml 3750 ml 0 ml Balance -909 ml -642 ml -1290 ml -433 ml -1724 ml 0 ml IV Total 2742 ml 947 ml 898 ml 406 ml 1565 ml Tube Feeding 589 ml 276 ml 522 ml 269 ml 281 ml Other 360 ml 160 ml 300 ml 200 ml 180 ml Output Urine Total 4600 ml 2025 ml 3000 ml 1300 ml 3750 ml Tube Feeding Residual Discard 0 ml Drainage Total 0 ml 10 ml 8 ml 0 ml # Bowel Movements 1 2 1 1 Laboratory Tests Test 10/17/16 10/18/16 10/18/16 10/19/16 21:30 05:00 15:04 04:00 Potassium Level 3.1 MEQ/L 3.3 MEQ/L 3.7 MEQ/L 3.1 MEQ/L Urine Osmolality 520 MOSM/KG 521 MOSM/KG 571 MOSM/KG Sodium Level 147 MEQ/L 145 MEQ/L 145 MEQ/L Chloride Level 114 MEQ/L 109 MEQ/L 112 MEQ/L Carbon Dioxide Level 23.5 MEQ/L 27.0 MEQ/L 23.9 MEQ/L Anion Gap 10 MEQ/L 9 MEQ/L 9 MEQ/L Blood Urea Nitrogen 22 MG/DL 25 MG/DL 25 MG/DL Creatinine 0.65 MG/DL 0.80 MG/DL 0.84 MG/DL Estimat Glomerular Filtration 130 ML/MIN 102 ML/MIN 96 ML/MIN Rate Random Glucose 154 MG/DL 175 MG/DL 213 MG/DL Calcium Level 6.8 MG/DL 7.9 MG/DL 6.8 MG/DL Protein Corrected Calcium 7.6 MG/DL 7.7 MG/DL Phosphorus Level 2.0 MG/DL Magnesium Level 1.9 MG/DL Total Protein 5.6 GM/DL 5.4 GM/DL Urine Specific [place] 1.015 1.015 Urine Random Sodium 98 MEQ/L 118 MEQ/L Serum Osmolality 306 MOSM/KG 303 MOSM/KG White Blood Count 12.9 TH/MM3 Red Blood Count 3.30 MIL/MM3 Hemoglobin 9.6 GM/DL Hematocrit 29.8 % Mean Corpuscular Volume 90.4 FL Mean Corpuscular Hemoglobin 29.2 PG Mean Corpuscular Hemoglobin 32.3 % Concent Red Cell Distribution Width 13.0 % Platelet Count 217 TH/MM3 Mean Platelet Volume 9.6 FL Test 10/19/16 10/20/16 10/20/16 10/20/16 12:45 06:00 11:20 12:55 Potassium Level 4.1 MEQ/L 3.3 MEQ/L 3.7 MEQ/L White Blood Count 15.9 TH/MM3 Red Blood Count 2.76 MIL/MM3 Hemoglobin 8.2 GM/DL Hematocrit 24.8 % Mean Corpuscular Volume 90.0 FL Mean Corpuscular Hemoglobin 29.9 PG Mean Corpuscular Hemoglobin 33.2 % Concent Red Cell Distribution Width 13.3 % Platelet Count 277 TH/MM3 Mean Platelet Volume 8.9 FL Sodium Level 147 MEQ/L Chloride Level 118 MEQ/L Carbon Dioxide Level 21.3 MEQ/L Anion Gap 8 MEQ/L Blood Urea Nitrogen 24 MG/DL Creatinine 0.72 MG/DL Estimat Glomerular Filtration 115 ML/MIN Rate Random Glucose 119 MG/DL Calcium Level 6.3 MG/DL Protein Corrected Calcium 7.4 MG/DL Total Protein 4.9 GM/DL Urine Color LIGHT-YELLOW Urine Turbidity CLEAR Urine pH 5.0 Urine Specific [place] 1.013 Urine Protein TRACE mg/dL Urine Glucose (UA) 70 mg/dL Urine Ketones NEG mg/dL Urine Occult Blood SMALL Urine Nitrite NEG Urine Bilirubin NEG Urine Urobilinogen LESS THAN 2.0 MG/DL Urine Leukocyte Esterase NEG Urine RBC 15 /hpf Urine WBC 4 /hpf Urine Squamous Epithelial <1 /hpf Cells Urine Bacteria RARE /hpf Urine Mucus FEW /lpf Microscopic Urinalysis Comment CATH-CULTURE IND Test 10/20/16 13:03 CSF Glucose 111 MG/DL CSF Total Protein 27.8 MG/DL Procedure Category Date Status Time Vital High Protein DIETCHG 10/17/16 Logged 14:55 Potassium, Serum (K) LAB 10/17/16 Complete 21:45 Basic Metabolic Panel LAB 10/18/16 Complete (Bmp) 05:00 Magnesium (Mg) LAB 10/18/16 Complete 05:00 Phosphorus (Po4) LAB 10/18/16 Complete 05:00 Osmolality, Urine LAB 10/18/16 Complete 05:00 Specimen To Be DONAVON 10/18/16 In Process Collected 03:36 Protein Corrected LAB 10/18/16 Complete Calcium(Pcc) 05:00 Ct Brain W/O Iv RADCT 10/19/16 Resulted Contrast(Rout) 06:00 Central Venous Line ISC 10/11/16 Complete Specific [place], LAB 10/18/16 Complete Urine 14:37 Sodium, Random Urine LAB 10/18/16 Complete 14:37 Osmolality, Urine LAB 10/18/16 Complete 14:37 Osmolality,Serum LAB 10/18/16 Complete 14:37 Specimen To Be DONAVON 10/18/16 Complete Collected 14:37 Basic Metabolic Panel LAB 10/18/16 Complete (Bmp) 14:37 Vital High Protein DIETCHG 10/18/16 Logged 15:48 Cbc No Diff, Includes LAB 10/19/16 Complete Plts 05:00 Cbc No Diff, Includes LAB 10/20/16 Complete Plts 05:00 Cbc No Diff, Includes LAB 10/21/16 Verified Plts 05:00 Cbc No Diff, Includes LAB 10/22/16 Verified Plts 05:00 Cbc No Diff, Includes LAB 10/23/16 Verified Plts 05:00 Cbc No Diff, Includes LAB 10/24/16 Verified Plts 05:00 Cbc No Diff, Includes LAB 10/25/16 Verified Plts 05:00 Basic Metabolic Panel LAB 10/19/16 Complete (Bmp) 05:00 Basic Metabolic Panel LAB 10/20/16 Complete (Bmp) 05:00 Basic Metabolic Panel LAB 10/21/16 Verified (Bmp) 05:00 Basic Metabolic Panel LAB 10/22/16 Verified (Bmp) 05:00 Basic Metabolic Panel LAB 10/23/16 Verified (Bmp) 05:00 Basic Metabolic Panel LAB 10/24/16 Verified (Bmp) 05:00 Basic Metabolic Panel LAB 10/25/16 Verified (Bmp) 05:00 Specific [place], LAB 10/19/16 Complete Urine 06:00 Sodium, Random Urine LAB 10/19/16 Complete 06:00 Osmolality, Urine LAB 10/19/16 Complete 06:00 Osmolality,Serum LAB 10/19/16 Complete 06:00 Specimen To Be DONAVON 10/18/16 Complete Collected 16:30 Continue Urinary DONAVON 10/18/16 In Process Catheter 17:00 Protein Corrected LAB 10/19/16 Complete Calcium(Pcc) 04:00 Potassium, Serum (K) LAB 10/19/16 Complete 12:45 Cta Neck W Iv RADCT 10/19/16 Resulted Contrast W 3d Cta Brain W Iv RADCT 10/19/16 Resulted Contrast W 3d Iohexol 350 Inj MED 10/19/16 Complete (Omnipaque 350 Inj) 14:36 Vital High Protein DIETCHG 10/19/16 Logged 14:54 ^ Pulse Checks DONAVON 10/19/16 In Process ^ Notify Radiology DONAVON 10/19/16 In Process Vital Signs (Adult) DONAVON 10/19/16 In Process 15:20 ^ Notify Radiology DONAVON 10/19/16 In Process 15:20 Phenylephrine Inj MED 10/19/16 In Process (Neosynephrine Inj) 16:30 ^ Other Nursing Orders DONAVON 10/19/16 In Process 15:25 Cathflo Activase Inj MED 10/19/16 In Process (Cathflo Activase I 16:15 Verapamil Inj MED 10/19/16 Complete (Isoptin Inj) 16:05 Midazolam Inj (Versed MED 10/19/16 Complete Inj) 17:18 Verapamil Inj MED 10/19/16 Complete (Isoptin Inj) 17:27 Angiogram, Cerebral RADINV 10/19/16 Resulted Wo Arch Angiogram, Select + RADINV 10/19/16 Taken Vessel Us Guided Vascular RADINV 10/19/16 Taken Access Spasmolytic RADINV 10/19/16 Taken Therapy,Intracrani Iodixanol 320 Inj MED 10/19/16 Complete (Visipaque 320 Inj) 18:08 Vital Signs (Adult) DONAVON 10/19/16 Complete 18:26 Notify Parameters DONAVON 10/19/16 In Process 18:26 ^ Apply Pressure DONAVON 10/19/16 In Process 18:26 ^ Dressings DONAVON 10/19/16 In Process 18:26 Activity Bed Rest DONAVON 10/19/16 In Process 18:26 Remove Urinary DONAVON 10/19/16 In Process Catheter 18:26 Diphenhydramine Inj MED 10/19/16 In Process (Benadryl Inj) 19:15 Protein Corrected LAB 10/20/16 Complete Calcium(Pcc) 06:00 Us Transcranial RADUS 10/20/16 Taken Doppler Comp Us Transcranial RADUS 10/21/16 Verified Doppler Comp 07:00 Us Transcranial RADUS 10/22/16 Verified Doppler Comp 07:00 Us Transcranial RADUS 10/23/16 Verified Doppler Comp 07:00 Us Transcranial RADUS 10/24/16 Verified Doppler Comp 07:00 Us Transcranial RADUS 10/25/16 Verified Doppler Comp 07:00 Us Transcranial RADUS 10/26/16 Verified Doppler Comp 07:00 Us Transcranial RADUS 10/27/16 Verified Doppler Comp 07:00 Blood Culture CASSIDY 10/20/16 In Process 10:43 Sputum Culture And CASSIDY 10/20/16 In Process Gram Stain 10:43 Urinalysis - C+S If LAB 10/20/16 Complete Indicated 10:43 Specimen To Be DONAVON 10/20/16 In Process Collected 10:43 Specimen To Be DONAVON 10/20/16 In Process Collected 10:43 Cf Bacterial LAB 10/20/16 In Process Menigitis Profile 10:43 Csf Afb Culture And CASSIDY 10/20/16 In Process Stain 10:43 Csf Cell Count + LAB 10/20/16 In Process Differential 10:43 Csf Culture And Gram CASSIDY 10/20/16 In Process Stain 10:43 Glucose, Csf LAB 10/20/16 Complete 10:43 Total Protein, Csf LAB 10/20/16 Complete 10:43 Potassium, Serum (K) LAB 10/20/16 Complete 11:10 Vancomycin Inj MED 10/20/16 Complete (Vancomycin Inj) 12:30 Cefepime Inj MED 10/20/16 In Process (Maxipime Inj) 13:00 Metronidazole 500 Mg MED 10/20/16 In Process Inj (Flagyl 500 Mg 14:00 Vancomycin Inj MED 10/20/16 In Process (Vancomycin Inj) 15:00 Urine Culture CASSIDY 10/20/16 In Process 12:55 Vital High Protein DIETCHG 10/20/16 Logged 14:22 Vital Signs Date Time Temp Pulse Resp B/P Pulse Ox O2 Delivery O2 Flow Rate FiO2 10/20/16 12:00 100 10/20/16 12:00 102.7 75 21 170/77 99 10/20/16 12:00 83 10/20/16 10:00 68 10/20/16 08:00 71 10/20/16 08:00 101.5 71 21 165/90 99 10/20/16 08:00 100 10/20/16 07:58 99 40 10/20/16 07:00 99 Mechanical Ventilator 40 10/20/16 06:00 58 10/20/16 04:12 99 40 10/20/16 04:00 78 10/20/16 04:00 100.8 78 19 159/81 98 10/20/16 04:00 100 10/20/16 02:00 64 10/20/16 01:10 98 40 10/20/16 00:15 168/96 10/20/16 00:00 100 10/20/16 00:00 79 10/20/16 00:00 100.2 79 17 155/83 100 10/19/16 22:00 65 10/19/16 20:00 100.4 106 20 181/97 100 10/19/16 20:00 100 10/19/16 20:00 106 10/19/16 19:49 100 40 10/19/16 19:00 100 Mechanical Ventilator 40 10/19/16 18:45 99.5 96 16 176/97 100 10/19/16 18:45 96 10/19/16 16:00 99 100 10/19/16 16:00 100 10/19/16 14:40 98 100 10/19/16 14:00 103 10/19/16 12:00 97 10/19/16 12:00 40 10/19/16 12:00 99.7 97 20 150/83 100 10/19/16 11:23 99 40 10/19/16 10:00 123 10/19/16 08:30 100 40 10/19/16 08:00 40 10/19/16 08:00 99.8 84 25 158/82 97 10/19/16 08:00 82 10/19/16 07:00 100 Mechanical Ventilator 40 10/19/16 06:00 86 10/19/16 05:10 98 100 10/19/16 04:01 100 40 10/19/16 04:00 98.9 84 19 166/89 100 10/19/16 04:00 84 10/19/16 04:00 40 10/19/16 02:00 78 10/19/16 01:19 97 40 10/19/16 00:00 91 10/19/16 00:00 99.3 91 20 166/89 100 10/19/16 00:00 40 10/18/16 22:00 79 10/18/16 20:00 40 10/18/16 20:00 77 10/18/16 20:00 99.3 77 18 153/80 100 10/18/16 19:00 100 Mechanical Ventilator 40 10/18/16 18:00 80 10/18/16 16:20 100 40 10/18/16 16:00 99.3 76 17 153/80 100 10/18/16 16:00 76 10/18/16 16:00 40 10/18/16 14:00 77 10/18/16 12:00 40 10/18/16 12:00 98.4 75 17 145/82 100 10/18/16 12:00 75 10/18/16 10:00 66 10/18/16 08:00 100 Mechanical Ventilator 40 10/18/16 08:00 80 10/18/16 08:00 98.6 80 21 150/79 100 10/18/16 08:00 40 10/18/16 07:58 100 40 10/18/16 06:00 71 10/18/16 04:16 100 40 10/18/16 04:00 99.3 83 21 156/81 100 10/18/16 04:00 83 10/18/16 04:00 40 10/18/16 02:00 68 10/18/16 01:13 100 40 10/18/16 00:00 99.6 90 20 168/77 100 10/18/16 00:00 90 10/18/16 00:00 40 10/17/16 22:00 82 10/17/16 20:10 98 40 10/17/16 20:00 40 10/17/16 20:00 86 10/17/16 20:00 99.8 86 19 171/79 100 10/17/16 18:00 84 10/17/16 16:00 40 10/17/16 16:00 99.4 69 19 166/77 100 10/17/16 16:00 69 10/17/16 15:32 99 40 Date Time Temp Pulse Resp B/P Pulse Ox O2 Delivery O2 Flow Rate FiO2 10/20/16 12:00 100 10/20/16 12:00 102.7 75 21 170/77 99 10/20/16 12:00 83 10/20/16 10:00 68 10/20/16 08:00 71 10/20/16 08:00 101.5 71 21 165/90 99 10/20/16 08:00 100 10/20/16 07:58 99 40 10/20/16 07:00 99 Mechanical Ventilator 40 10/20/16 06:00 58 10/20/16 04:12 99 40 10/20/16 04:00 78 10/20/16 04:00 100.8 78 19 159/81 98 10/20/16 04:00 100 10/20/16 02:00 64 10/20/16 01:10 98 40 10/20/16 00:15 168/96 10/20/16 00:00 100 10/20/16 00:00 79 10/20/16 00:00 100.2 79 17 155/83 100 10/19/16 22:00 65 10/19/16 20:00 100.4 106 20 181/97 100 10/19/16 20:00 100 10/19/16 20:00 106 10/19/16 19:49 100 40 10/19/16 19:00 100 Mechanical Ventilator 40 10/19/16 18:45 99.5 96 16 176/97 100 10/19/16 18:45 96 10/19/16 16:00 99 100 10/19/16 16:00 100 10/19/16 14:40 98 100 10/20/16 07:00 Intake Total 2901 ml Output Total 5058 ml Balance -2157 ml Constitutional Vital Signs Date Time Temp Pulse Resp B/P Pulse Ox O2 Delivery O2 Flow Rate FiO2 10/20/16 12:00 100 10/20/16 12:00 102.7 75 21 170/77 99 10/20/16 12:00 83 10/20/16 10:00 68 10/20/16 08:00 71 10/20/16 08:00 101.5 71 21 165/90 99 10/20/16 08:00 100 10/20/16 07:58 99 40 10/20/16 07:00 99 Mechanical Ventilator 40 10/20/16 06:00 58 10/20/16 04:12 99 40 10/20/16 04:00 78 10/20/16 04:00 100.8 78 19 159/81 98 10/20/16 04:00 100 10/20/16 02:00 64 10/20/16 01:10 98 40 10/20/16 00:15 168/96 10/20/16 00:00 100 10/20/16 00:00 79 10/20/16 00:00 100.2 79 17 155/83 100 10/19/16 22:00 65 10/19/16 20:00 100.4 106 20 181/97 100 10/19/16 20:00 100 10/19/16 20:00 106 10/19/16 19:49 100 40 10/19/16 19:00 100 Mechanical Ventilator 40 10/19/16 18:45 99.5 96 16 176/97 100 10/19/16 18:45 96 10/19/16 16:00 99 100 10/19/16 16:00 100 10/19/16 14:40 98 100 10/20/16 07:00 Intake Total 2901 ml Output Total 5058 ml Balance -2157 ml (Meir Sánchez) Review of Systems/Exam ROS Unable to obtain ROS due to mental status & being intubated. Exam Clear to ausculation bilaterally w/o wheeze, rhonchi or rales, equal excursion, non-labored, intubated & mechanically ventilated. Regular rate & rhythm w/o murmur, gallop or rub, radial & pedal pulses 2+ bilaterally, sinus rhythm on the monitor. Abdomen soft, nontender, positive bowel sounds all quads, OGT w/enteral feeds. No eye opening spontaneously, to voice or noxious stimuli. The patient is noted to twist his head from [id number] spontaneously and with noxious stimuli. PERRLA 3 mm bilaterally Withdraws feet to noxious stimuli but with minimal movement to upper extremities Ventricular catheter in place, EVD clamped, ICP 9 SBP 203 (Meir Sánchez) Medications Current Medications Current Medications Medications (Trade) Dose Ordered Sig/Nava Route Start Time Stop Time Status Last Admin (Tylenol) 650 mg Q6H PRN PO 10/05/16 02:45 10/20/16 12:26 (Morphine Inj) 2 mg Q2H PRN IV 10/05/16 02:45 10/15/16 19:04 (Protonix Inj) 40 mg DAILY IV 10/05/16 09:00 10/20/16 08:56 (Tears Naturale Opth Soln) 1 drop TID EACH EYE 10/05/16 09:00 10/20/16 12:31 (Zofran Inj) 4 mg Q6H PRN IV 10/05/16 02:45 (Colace) 100 mg Q12H G-TUBE 10/05/16 04:00 10/20/16 05:55 Miscellaneous Information 1 Q361D XX 10/05/16 02:45 10/05/16 02:45 (Chlorhexidine 2% Cloth) Taper DAILY@04 TOP 10/05/16 04:00 10/01/17 03:59 10/18/16 03:13 Chlorhexidine Gluconate 3 pack 3 pack UNSCH PRN TOP 10/05/16 02:45 Levetriacetam 500 mg/Sodium Chloride 105 ml @ 420 mls/hr Q12HR IV 10/05/16 09:00 10/20/16 08:56 (Cardene Inj/NS 250 ml Inj) 260 ml @ 0 mls/hr TITRATE IV 4/5/17 02:45 10/18/16 11:23 (Trandate Inj) 10 mg Q4H PRN IV PUSH 10/05/16 02:45 10/17/16 00:29 (Pravachol) 40 mg DAILY PO 10/05/16 09:00 10/20/16 08:56 (NS Flush) See Protocol DAILY IV FLUSH 10/07/16 09:00 10/20/16 08:57 (NS Flush) See Protocol UNSCH PRN IV FLUSH 10/06/16 12:00 Sodium Chloride UNSCH PRN IV FLUSH 10/06/16 12:00 (Levophed Inj/NS 250 ml Inj) 254 ml @ 0 mls/hr TITRATE IV 10/06/16 18:00 10/20/16 12:27 (Miralax) 17 gm DAILY PO 10/10/16 14:00 10/20/16 08:57 Lactulose 30 ml 30 ml DAILY PO 10/10/16 14:00 10/20/16 08:56 Potassium Chloride 100 ml @ 50 mls/hr Q2H PRN IV 10/14/16 16:00 10/19/16 06:30 (KCl 20 Meq Premix Inj) 100 ml @ 50 mls/hr Q2H PRN IV 10/14/16 16:00 10/15/16 17:29 Potassium Bicarb/ Potassium Chloride 50 meq 50 meq UNSCH PRN PO 10/14/16 16:00 10/20/16 07:04 Potassium Chloride 100 ml @ 25 mls/hr UNSCH PRN IV 10/14/16 16:00 10/18/16 06:50 Potassium Chloride 100 ml @ 50 mls/hr Q2H PRN IV 10/14/16 16:00 10/16/16 12:41 (Magnesium Sulfate Inj/NS Inj) 100 ml @ 50 mls/hr UNSCH PRN IV 10/14/16 16:00 Magnesium Oxide 800 mg 800 mg UNSCH PRN PO 10/14/16 16:00 (Magnesium Sulfate Inj/NS Inj) 100 ml @ 50 mls/hr UNSCH PRN IV 10/14/16 16:00 Potassium Phosphate 2000 mg 2,000 mg Q4H PRN PO 10/14/16 16:00 10/17/16 02:00 (Sodium Phosphate Inj/NS 250 ml Inj) 250 ml @ 42 mls/hr UNSCH PRN IV 10/14/16 16:00 Potassium Phosphate 2000 mg 2,000 mg UNSCH PRN PO/TUBE 10/14/16 16:00 10/18/16 06:51 (Potassium Phosphate Inj/NS 250 ml Inj) 260 ml @ 42 mls/hr UNSCH PRN IV 10/14/16 16:00 Nimodipine 30 mg 30 mg Q2H PO 10/17/16 11:00 10/20/16 12:30 (Neosynephrine Inj/NS 500 ml Inj) 500 ml @ 0 mls/hr TITRATE IV 10/19/16 16:30 10/20/16 11:24 (Cathflo Activase Inj) 2 mg UNSCH PRN IV FLUSH 10/19/16 16:15 10/19/16 18:43 Diphenhydramine HCl 6.25 mg 6.25 mg Q4H PRN IV PUSH 10/19/16 19:15 10/20/16 07:03 Cefepime HCl 2000 mg/Sodium Chloride 100 ml @ 200 mls/hr Q8H IV 10/20/16 13:00 10/20/16 12:48 Metronidazole 100 ml @ 100 mls/hr Q6H IV 10/20/16 14:00 10/20/16 12:48 (Vancomycin Inj/ NS 250 ml Inj) 262.5 ml @ 250 mls/hr ONCE ONCE IV 10/20/16 15:00 10/20/16 16:02 (Meir Sánchez) Medical Decision Making MDM Remarks 1. Minimal neurologic decline most likely r/t infection a. Probable infected EVD 2. 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 Evolving primarily left basal ganglia region CVA primarily per CT 4. Recurring cerebral vasospasms left > right MCA (Meir Sánchez) Plan Plan Remarks Continue SBP 180-200 mm Hg per Surgical [employer] Super[employer] Continue EVD at present Monitor ICP Continue Keppra for probable seizure activity Okay for Lovenox from NSGY standpoint Ulcer prophylaxis (Meir Sánchez) Attending Statement I have personally seen and examined the patient on the date of this note. Pertinent documentation and study results have been reviewed by the undersigned. I have personally developed the treatment plan and performed medical decision making. Agree with findings, exam, and treatment plan as noted above. Patient was evidence of mesial left hemisphere ischemia/CVA on recent CT head. Remains relatively responsive compared to prior examinations. ICP stable Plan DC ventriculostomy drain in a.m. if no further neurologic changes. (Gino Mace MD) Meir Sánchez Oct 20, 2016 14:43 Gino Mace MD Oct 21, 2016 19:41 1. Minimal neurologic decline most likely r/t infection a. Probable infected EVD 2. 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 Evolving primarily left basal ganglia region CVA primarily per CT 4. Recurring cerebral vasospasms left > right MCA Plan Plan Remarks Continue SBP 180-200 mm Hg per Surgical [employer] Supervisor Continue EVD at present Monitor ICP Continue Keppra for probable seizure activity Okay for Lovenox from NSGY standpoint Ulcer prophylaxis Meir Sánchez Oct 20, 2016 14:43
--- NOTE | 2016-10-20 15:12 | RADRPT ---
EXAM DATE/TIME: 10/20/2016 11:23 [facility] COMPARISON: US TRANSCRANIAL DOPPLER COMPLETE, October 19, 2016, 8:27. INDICATIONS : Subarachnoid hemorrhage. MEDICAL HISTORY : Hypertension. Pancreatitis. TIA. Migraine. Cardiovascular disease. SURGICAL HISTORY : Ventriculostomy clamp. Ventriculostomy drain. ENCOUNTER: Sequela ACUITY: 3 weeks PAIN SCORE: 0/10 LOCATION: cranial Current Exam: Oct 20, 2016 [place] Ratio: Right: 1.9 Left: 1.1 [place] Ratio: Right: 0.8 Left: 1.1 Previous Exam: Oct 19, 2016 [place] Ratio: Right: 3.5 Left: 6.1 [place] Ratio: Right: 1.4 Left: 1.8 FINDINGS: Examination performed at bedside. Real-time ultrasound with the assistance of color and spectral Dop pler was utilized to evaluate the intracerebral circulation. Time-averaged maximal velocities are ca lculated in cm/s. Measured velocities have significantly changed resulting in decrease [place] ratios. CONCLUSION: Significant interval change in [place] ratios suggesting resolution of vasospasm. Leonel Alva MD on October 20, 2016 at 15:07 Board Certified Radiologist. This report was verified electronically.
[2016-10-20] MEDS: VASOPRESSIN INJ 40 UNITS in DEXTROSE 5% IN WATER 100ML INJ 98 ML IV SCH ×2 (16:29)
[2016-10-20 16:33] LABS: CSF LYMPHOCYTES 0 %; CSF NEUTROPHILS 0 %; RBC TUBE #1 23 /MM3; WBC TUBE #1 0 /MM3 (0-10)
[2016-10-20 16:34] LABS: SUPERNATE COLOR TUBE #1 CLEAR (CLEAR)
[2016-10-20] MEDS ORDERED: DEXTROSE 50% IN WATER 50 ML VIAL(D50) IV PUSH PRN (17:15)
[2016-10-20] MEDS ORDERED: SODIUM CHLORID 0.9% 500 ML INJ 500 ML IV ONE (17:15)
[2016-10-20] MEDS: INSULIN NovoLIN REGULAR SUPPLEMENTAL SCALE SQ SCH (18:27)
[2016-10-21] VITALS (18 sets, daily range): BP systolic 160–185; BP diastolic 69–89; PULSE 65–110; RESP 16–20; TEMP 99.7–100.4; O2SAT 97–100
[2016-10-21] MEDS: niMODipine 30 MG CAP PO SCH ×12 (00:16→22:54)
[2016-10-21] MEDS: metroNIDAZOLE 500 MG INJ 100 ML IV SCH ×4 (02:06→20:06)
[2016-10-21] MEDS: ACETAMINOPHEN 325 MG TAB PO PRN (02:16)
[2016-10-21] MEDS: CHLORHEXIDINE GLUCONATE 2 % 1 PACK (2 CLOTHS) TOP SCH (04:00)
[2016-10-21] MEDS: CEFEPIME INJ 2,000 MG in SODIUM CHLORIDE 0.9% INJ 100 ML IV SCH ×3 (05:31→21:08)
[2016-10-21] MEDS: DOCUSATE SODIUM 100 MG CAP G-TUBE SCH ×2 (05:31→15:01)
--- NOTE | 2016-10-21 06:25 | PD.PROCEDR ---
Procedure Note Procedure I performed the service on 10/20. Delayed procedural note entry. Procedure: Arterial Line Placement Right radial arterial line Diagnosis: Aneurysmal subarachnoid hemorrhage Indications: Need for beat to beat hemodynamic monitoring Consent: Consent is deemed emergent or medically necessary Description of the Procedure: The right wrist was prepped and draped sterilely. 1% lidocaine was used for local anesthesia. The pulse was located and a needle was advanced into the artery. A 20 gauge, 12 cm catheter was advanced into the artery using a modified Seldinger technique. The catheter was sutured to the skin and a sterile dressing was applied. The catheter was connected to a pressure transducer and an arterial waveform was noted. There were no immediate complications noted. There was minimal EBL. I personally performed the procedure. Barrett Mccullough MD Oct 21, 2016 06:25
[2016-10-21 06:33] LABS: HEMATOCRIT 26.7 % (39.0-51.0); HEMOGLOBIN 8.9 GM/DL (13.0-17.0); MEAN CELL VOLUME 89.4 FL (80.0-100.0); MEAN CORPUSCULAR HEMOGLOBIN 29.9 PG (27.0-34.0); MEAN CORPUSCULAR HGB CONC 33.4 % (32.0-36.0); MEAN PLATELET VOLUME 9.3 FL (7.0-11.0); PLATELET COUNT 214 TH/MM3 (150-450); RED BLOOD COUNT 2.99 MIL/MM3 (4.50-5.90); RED CELL DISTRIBUTION WIDTH 13.2 % (11.6-17.2); WHITE BLOOD COUNT 14.4 TH/MM3 (4.0-11.0)
[2016-10-21] MEDS: INSULIN NovoLIN REGULAR SUPPLEMENTAL SCALE SQ SCH ×4 (06:42→16:53)
[2016-10-21 06:58] LABS: BICARBONATE 27.9 MEQ/L (21.0-32.0); CALCIUM 7.8 MG/DL (8.5-10.1); CREATININE 0.96 MG/DL (0.60-1.30)
[2016-10-21] MEDS: NOREPINEPHRINE INJ 4 MG in SODIUM CHLOR 0.9% 250 ML INJ 250 ML IV SCH (08:12)
[2016-10-21] MEDS ORDERED: SODIUM CHLOR 0.9% 1000 ML INJ 1,000 ML IV ONE (08:30)
[2016-10-21] MEDS: POLYETHYLENE GLYCOL 17 GM PKG PO SCH (09:00)
[2016-10-21] MEDS: LACTULOSE SYRUP 20 GM/30 ML CUP PO SCH (09:00)
--- NOTE | 2016-10-21 09:25 | HHI.CCPN ---
Subjective Remarks/Hospital Course 51 year old male presents with being brought in as a trauma alert due to a head injury with altered mental status and a diminished GCS. The patient was in the bathroom and fell and hit his head. This was an unwitnessed fall. According to the patient's the patient had been unresponsive for approximately 15 minutes by the time ambulance services arrived. When they arrived the patient was noted to be a GCS of 14, however his mentation would wax and wane and go down as low as 3 again. On arrival to the emergency department he felt extremely nauseated. The CT of the head revealed diffuse subarachnoid bleed. 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 CT head today with some ventricular blood. ICP controlled and patient tolerates lightening of sedation. Volume loaded to maintain SBP > 130s. Opens eyes to voice. 10/07: BP controlled. TCDs to be done today. 10/08: BP control good. Well hydrated. No TCD evidence of spasm. 10/09: TCD today pending. CPP good. No seizure activity. Remains well hydrated. 10/10: TCDs no vasospasm. Remains well hydrated, well perfused. Some peripheral edema as expected. 10/11: Hemodynamics good. Bladder spasm continues. Try Flomax - an alpha kendall , will not impair cerebral vessels. 10/12: Episode of sepsis last night from obstructed Guzman, JONH evident. Much improved now. 10/13: JONH improving. Narrow abx to GNR. 10/14: Aztreonam started for sputum, urine. CT Head acceptable. 10/15: No change in neuro status. BP control good. 10/16: Remains sedated, orally intubated on mechanical ventilation. Ventriculostomy in place. Underwent angiogram with injection of verapamil intra -arterial for minimal vasospasm on 10/15 10/17: Remains sedated, orally intubated on mechanical ventilation. Ventriculostomy drained 65 cc over 8 hours overnight. 10/18: off sedation. withdraws to pain. does not follow commands. per nursing, this is an exam change and he was previously following commands. 10/19: continues off sedation. ICP stable around 5. neuro exam stable. TCDs yesterday with questionable early spasm, but given stable neuro exam, decided to repeat TCD today to eval trend. 10/20: off sedation. taken yesterday for angio with IA verapamil for left MCA, SRI spasm. 10/21: spiked fever yesterday, white cultured. empirically started on broad spectrum abx. CSF sent for culture. initial CSF appeared cloudy but cell count and gram stain reassuring. TCDs yesterday without evidence of vasospasm. this AM sodium dropped from 147 to 139 with net -1L. likely early salt wasting, although up to this point urine studies have not shown concern for this up to now. Objective Vital Signs Date Time Temp Pulse Resp B/P Pulse Ox O2 Delivery O2 Flow Rate FiO2 10/21/16 08:24 100 40 10/21/16 08:00 100.2 86 18 175/85 10/20/16 19:00 Mechanical Ventilator Intake and Output 10/20/16 10/20/16 10/21/16 08:00 16:00 00:00 Intake Total 1725 ml 1754 ml 1784 ml Output Total 1600.0 ml 2450 ml 2300 ml Balance 125.0 ml -696 ml -516 ml Result Diagram: 10/21/16 0555 10/21/16 0555 Imaging Last 24 hours Impressions Pelvis X-Ray 10/05/16109 Signed Impressions: Service Date/Time: Wednesday, October 05, 2016 01:22 - CONCLUSION: Unremarkable examination of the pelvis. Ruben Acuña Jr., MD Head CT 10/05/16109 Signed Impressions: Service Date/Time: Wednesday, October 05, 2016 01:38 - CONCLUSION: Diffuse subarachnoid hemorrhage. Ruben Acuña Jr., MD Chest X-Ray 10/05/16109 Signed Impressions: Service Date/Time: Wednesday, October 05, 2016 01:22 - CONCLUSION: No acute disease. Ruben Acuña Jr., MD Chest CT 10/05/16109 Signed Impressions: Service Date/Time: Wednesday, October 05, 2016 01:46 - CONCLUSION: 1. No acute intrathoracic abnormality. 2. Bibasilar atelectasis. 3. Cardiomegaly. 4. Prior granulomatous disease. Ruben Acuña Jr., MD Cervical Spine CT 10/05/16109 Signed Impressions: Service Date/Time: Wednesday, October 05, 2016 01:40 - CONCLUSION: 1. No fracture or dislocation. 2. Multilevel degenerative changes. uRben Acuña Jr., MD Abdomen/Pelvis CT 10/05/160 Signed Impressions: Service Date/Time: Wednesday, October 05, 2016 01:46 - CONCLUSION: 1. No acute trauma. 2. Rounded area of decreased density involving the pancreatic head. I cannot completely exclude pancreatic head mass. At some point MRI of the pancreas is suggested to further evaluate. 3. Focal area of poor enhancement involving the left kidney. This may relate to an area of parenchymal scarring. I cannot completely exclude a mass. This can be further assessed with MRI as well. Ruben Acuña Jr., MD Objective Remarks GENERAL: middle-aged male lying in bed, obtunded. SKIN: Dry HEAD: Normocephalic. EYES: Pupils are 2 mm and reactive bilaterally. NECK: Supple, trachea midline. CARDIOVASCULAR: Regular rate and rhythm. No JVD. RESPIRATORY: Orally intubated on mechanical ventilation, Breath sounds equal bilaterally. Clear, no wheezes or crackles. Good soha excursions. GASTROINTESTINAL: Abdomen soft, non-tender, nondistended. BS active. No guarding. EXTREMITIES: Nonfocal clubbing cyanosis or edema, well perfused. NEURO: does not open eyes. purposeful LUE, withdraws RUE. withdraw bilateral lower extremity. does not follow commands. grimace to pain only. Ventric in place A/P Problem List: (1) 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 ICD Code: I60.8 Status: Acute (2) Intracranial hemorrhage ICD Code: I62.9 Status: Acute (3) Hypertension ICD Code: I10 Status: Acute Assessment and Plan Assessment: 51yM with aneurysmal SAH, post-bleed day 16, s/p basilar artery coiling 10/05. S/p IA Verapamil 10/15 and 10/19 for cerebral vasospasm. He persists in severe encephalopathy, acute hypoxic respiratory failure. Septic shock on vasopressors. off pathway. critically ill. now appears to be in early cerebral salt wasting. will aggressively treat hypovolemia. add salt tabs, and he may require 3% nacl. Plan: Neuro: Acute encephalopathy Basilar Aneurysm Aneurysmal Subarachnoid Hemorrhage Aneurysmal Subarachnoid bleed 10/05 Cerebral Vasospasm - Núñez Veliz 5 Lucas grade 3 - Nimodipine. Status post intra-arterial verapamil for vasospasm on 10/15, 10/19 - Pravachol - press patient to SBP 160 - 200 given cerebral vasospasm. - Daily TCD's - Basilar tip coiled. - s/p angio with IA verapamil 10/15, 10/19 - goal euvolemia Respiratory: Acute Hypoxic and Hypercarbic Respiratory Failure - Intubated for airway protection - No weaning until neurologically improved and stable, not with high concern for cerebral vasospasm. - requires tracheostomy, but not with evidence of ongoing cerebral vasospasm. - DuoNeb's as needed for wheezing CV: Inadequate Cerebral Perfusion Septic Shock - press patient to SBP 180 - 200 given cerebral vasospasm. - levophed, vasopressin for target blood pressure for cerebral perfusion. Renal: Cerebral Salt Wasting - goal euvolemia - guzman for accurate I/Os - strict I/Os - nacl tabs 2gm q8h - repeat sodium at 1200 - urine Na, urine osm, urine SG - 1L NS bolus - NS @ 125 cc/hr. - strict q1h I/Os. FEN/GI: Acute Protein Calorie Malnutrition- mild -- vital high protein 40mL/hr. -- daily BMP -- ICU electrolyte protocol. Heme/ID: Fever Leukocytosis prior UTI- s/p full course abx -- 10/20 sputum culture- NGTD -- 10/20 urine culture- NGTD -- 10/20 CSF: 0 wbc, glu 111, prot 27.8, culture NGTD -- 10/20 Blood cx: NGTD -- resend CSF today -- Dr. Mace d/c EVD today. -- vancomycin with pharmacy dosing -- cefepime 2gm iv q8hr -- flagyl 500mg iv q6hr Endocrine: Hyperglycemia of critical illness -- SSI Prophylaxis: - Teds SCDs - No pharmacological prophylaxis due to ICH - Protonix IV Dispo: remain in the ICU. he remains critically ill. Critical Care time exclusive of separately billable procedures: 79 min. Problem Qualifiers (1) Hypertension: Qualified Code: I10 - Essential hypertension Barrett Mccullough MD Oct 21, 2016 09:25
[2016-10-21] MEDS: SODIUM CHLORIDE 0.9% FLUSH 10 ML FLUSH IV FLUSH SCH (09:59)
[2016-10-21] MEDS: levETIRAcetam INJ 500 MG in SODIUM CHLORIDE 0.9% INJ 100 ML IV SCH ×2 (09:59→21:07)
[2016-10-21] MEDS: ARTIFICIAL TEARS OPTH SOLN 15 ML BTL EACH EYE SCH ×3 (10:00→16:54)
[2016-10-21 10:04] LABS: TOTAL PROTEIN,CSF 28.8 MG/DL (15.0-45.0)
[2016-10-21] MEDS: PANTOPRAZOLE SODIUM 40 MG VIAL IV SCH (10:29)
[2016-10-21] MEDS: PRAVASTATIN SOD 40 MG TAB PO SCH (10:29)
[2016-10-21] MEDS: SODIUM CHLOR 0.9% 1000 ML INJ 1,000 ML IV SCH ×2 (10:30→17:55)
[2016-10-21 10:42] LABS: SUPERNATE COLOR TUBE #1 CLEAR (CLEAR)
[2016-10-21 10:43] LABS: CSF LYMPHOCYTES 60 %; CSF MONOCYTES 30 %; CSF NEUTROPHILS 10 %
[2016-10-21 10:44] LABS: RBC TUBE #1 112 /MM3; WBC TUBE #1 4 /MM3 (0-10)
[2016-10-21 11:23] LABS: SODIUM,RANDOM URINE 126 MEQ/L
--- NOTE | 2016-10-21 11:31 | RADRPT ---
EXAM DATE/TIME: 10/21/2016 07:54 [facility] COMPARISON: US TRANSCRANIAL DOPPLER COMPLETE, October 20, 2016, 11:23. INDICATIONS : Subarachnoid hemorrhage. MEDICAL HISTORY : Hypertension. Pancreatitis. TIA. Migraines. Cardiovascular disease. Subarachnoid hemorrhage. SURGICAL HISTORY : Ventriculostomy clamp. Ventriculostomy drain. ENCOUNTER: Sequela ACUITY: 2 weeks PAIN SCORE: Nonresponsive. LOCATION: Bilateral cranial Current Exam: Oct 21, 2016 [place] Ratio: Right: 2.9 Left: 1.5 Gregorio Ratio: Right: 3.5 Left: 1.2 Previous Exam: Oct 20, 2016 [place] Ratio: Right: 1.9 Left: 1.1 Gregorio Ratio: Right: 0.8 Left: 1.1 FINDINGS: Examination performed at bedside. Real-time ultrasound with the assistance of color and spectral Dop pler was utilized to evaluate the intracerebral circulation. Time-averaged maximal velocities are ca lculated in cm/s. Significant increased velocity is identified in the right anterior cerebral artery resulting in a Slo an ratio of 3.5. The right [place] ratio is 2.9 which is borderline for mild spasm. CONCLUSION: Increase in [place] ratio on the right which is borderline for mild vasospasm. Significant elevation of Gregorio ratio on the right indicative of mild vasospasm. No evidence of significant vasospasm involving the left cerebral circulation. Leonel Alva MD on October 21, 2016 at 11:22 Board Certified Radiologist. This report was verified electronically.
[2016-10-21 11:33] LABS: OSMOLALITY,URINE 712 MOSM/KG (300-1300)
[2016-10-21] MEDS: SODIUM CHLORIDE 1 GRAM TAB PO SCH ×3 (11:52→22:34)
--- NOTE | 2016-10-21 12:35 | HHI.NSPN ---
(Meir Sánchez) Note Status Status: Progress Note (Meir Sánchez) Interval History Interval History 51 year old male presents with being brought in as a trauma alert due to a head injury with altered mental status and a diminished GCS. The patient was in the bathroom and fell and hit his head. This was an unwitnessed fall. According to the patient's the patient had been unresponsive for approximately 15 minutes by the time ambulance services arrived. When they arrived the patient was noted to be a GCS of 14, however his mentation would wax and wane and go down as low as 3 again. On arrival to the emergency department he felt extremely nauseated. The CT of the head revealed diffuse subarachnoid bleed. Emergently intubated in the trauma bay. Possible seizure activity. Intubated in the emergency room. 10/05/16: Endovascular coiling 10/07/16 rinse intubated and sedated. Ventriculostomy in place 10/09/16: Remains intubated and sedated. Increased agitation with attempts at sedation vacation 10/17/16: Pupils 2 mm. Intubated and sedated. Somewhat more responsive with decreased sedation. External ventricular drain and closed to reservoir again today. 10/19/16: TCD with vasospasm, to angio with 10 mg Verapamil IA given. 10/20/16: Patient with fevers up to 102.8 per Nursing and cultures sent, Nursing reports CSF milky & with sediment. TCD being repeated this afternoon due to vast difference from that done this morning and yesterday. Medical Equipment Technician increased SBP parameters to 180-200 mm Hg to help overcome vasospasms. No increase in ICP. 10/21/16: Still with elevated temp but not as high. TCD yesterday demonstrated resolution of vasospasms but today it demonstrated a right SRI vasospasm. Patient with facial grimacing and attempted eye opening. CSF specimen sent yesterday w/o any organisms or WBCs seen on Gram stain. (Meir Sánchez) Labs, Micro, & Vital Signs Results Allergies Coded Allergies Type Severity Reaction Last Updated Verified Penicillin Allergy Unknown 10/06/16 Yes Sulfa Allergy Unknown 10/06/16 Yes Recent Impressions Transcranial Doppler Study Complete 10/21/16 0700 Signed Impressions: Service Date/Time: Friday, October 21, 2016 07:54 - CONCLUSION: Increase in Lind[place]ard ratio on the right which is borderline for mild vasospasm. Significant elevation of Gregorio ratio on the right indicative of mild vasospasm. No evidence of significant vasospasm involving the left cerebral circulation. Leonel Alva MD Transcranial Doppler Study Complete 10/20/16 0000 Signed Impressions: Service Date/Time: October 11:23 - CONCLUSION: Significant interval change in Lind[place]ard ratios suggesting resolution of vasospasm. Leonel Alva MD Head CT 10/19/16 0600 Signed Impressions: Service Date/Time: Wednesday, October 19, 2016 04:53 - CONCLUSION: Chest was aneurysm coiling and with some residual subarachnoid hemorrhage in the right temporal region and in the intraventricular system. No new hemorrhage seen. Mynor Bennett MD Neck CTA 10/19/16 0000 Signed Impressions: Service Date/Time: Wednesday, October 19, 2016 14:19 - CONCLUSION: Negative for dissection or significant stenosis. Christian Song MD FACR Head CTA 10/19/16 0000 Signed Impressions: Service Date/Time: Wednesday, October 19, 2016 14:19 - CONCLUSION: 1. Interval development of significant vasospasm in the left MCA and SRI territories. 2. Mild vasospasm in the basilar artery.. Gume Mckeon MD Cerebral Arteriogram 10/19/16 0000 Signed Impressions: Service Date/Time: Wednesday, October 19, 2016 16:06 - CONCLUSION: 1. Vasospasm in the left MCA and SRI territories 2. Spasmolytic infusion, left internal carotid artery as above.. Gume Mckeon MD Transcranial Doppler Study Complete 10/19/16 0000 Signed Impressions: Service Date/Time: Wednesday, October 19, 2016 08:27 - CONCLUSION: Developing vasospasm with mild/moderate spasm identified on the right and moderate to severe spasm on the left. Leonel Alva MD 10/19/16 10/19/16 10/20/16 10/20/1610/21/17 4/21/17 06:00 18:00 06:00 18:00 06:00 18:00 Intake Total 1720 ml 875 ml 2026 ml 1754 ml 3089 ml 130 ml Output Total 3010 ml 1308 ml 3750 ml 2450 ml 3500 ml 770 ml Balance -1290 ml -433 ml -1724 ml -696 ml -411 ml -640 ml IV Total 898 ml 406 ml 1565 ml 1443 ml 2197 ml Tube Feeding 522 ml 269 ml 281 ml 311 ml 592 ml Other 300 ml 200 ml 180 ml 300 ml 130 ml Output Urine Total 3000 ml 1300 ml 3750 ml 2450 ml 3500 ml 770 ml Tube Feeding Residual Discard 0 ml 0 ml Drainage Total 10 ml 8 ml 0 ml 0 ml 0 ml # Bowel Movements 1 1 1 2 Laboratory Tests Test 10/18/16 10/19/16 10/19/16 10/20/16 15:04 04:00 12:45 06:00 Urine Specific [place] 1.015 1.015 Urine Osmolality 521 MOSM/KG 571 MOSM/KG Urine Random Sodium 98 MEQ/L 118 MEQ/L Sodium Level 145 MEQ/L 145 MEQ/L 147 MEQ/L Potassium Level 3.7 MEQ/L 3.1 MEQ/L 4.1 MEQ/L 3.3 MEQ/L Chloride Level 109 MEQ/L 112 MEQ/L 118 MEQ/L Carbon Dioxide Level 27.0 MEQ/L 23.9 MEQ/L 21.3 MEQ/L Anion Gap 9 MEQ/L 9 MEQ/L 8 MEQ/L Blood Urea Nitrogen 25 MG/DL 25 MG/DL 24 MG/DL Creatinine 0.80 MG/DL 0.84 MG/DL 0.72 MG/DL Estimat Glomerular Filtration 102 ML/MIN 96 ML/MIN 115 ML/MIN Rate Random Glucose 175 MG/DL 213 MG/DL 119 MG/DL Serum Osmolality 306 MOSM/KG 303 MOSM/KG Calcium Level 7.9 MG/DL 6.8 MG/DL 6.3 MG/DL White Blood Count 12.9 TH/MM3 15.9 TH/MM3 Red Blood Count 3.30 MIL/MM3 2.76 MIL/MM3 Hemoglobin 9.6 GM/DL 8.2 GM/DL Hematocrit 29.8 % 24.8 % Mean Corpuscular Volume 90.4 FL 90.0 FL Mean Corpuscular Hemoglobin 29.2 PG 29.9 PG Mean Corpuscular Hemoglobin 32.3 % 33.2 % Concent Red Cell Distribution Width 13.0 % 13.3 % Platelet Count 217 TH/MM3 277 TH/MM3 Mean Platelet Volume 9.6 FL 8.9 FL Protein Corrected Calcium 7.7 MG/DL 7.4 MG/DL Total Protein 5.4 GM/DL 4.9 GM/DL Test 10/20/16 10/20/16 10/20/16 10/21/16 11:20 12:55 13:03 05:55 Potassium Level 3.7 MEQ/L 3.9 MEQ/L Urine Color LIGHT-YELLOW Urine Turbidity CLEAR Urine pH 5.0 Urine Specific [place] 1.013 Urine Protein TRACE mg/dL Urine Glucose (UA) 70 mg/dL Urine Ketones NEG mg/dL Urine Occult Blood SMALL Urine Nitrite NEG Urine Bilirubin NEG Urine Urobilinogen LESS THAN 2.0 MG/DL Urine Leukocyte Esterase NEG Urine RBC 15 /hpf Urine WBC 4 /hpf Urine Squamous Epithelial <1 /hpf Cells Urine Bacteria RARE /hpf Urine Mucus FEW /lpf Microscopic Urinalysis Comment CATH-CULTURE IND CSF Volume (Tube 1) 4.0 ML CSF Supernatant Color (tube 1) CLEAR CSF Gross Blood (Tube 1) 0 CSF WBC (Tube 1) 0 /MM3 CSF RBC (Tube 1) 23 /MM3 CSF Neutrophils 0 % CSF Lymphocytes 0 % CSF Glucose 111 MG/DL CSF Total Protein 27.8 MG/DL White Blood Count 14.4 TH/MM3 Red Blood Count 2.99 MIL/MM3 Hemoglobin 8.9 GM/DL Hematocrit 26.7 % Mean Corpuscular Volume 89.4 FL Mean Corpuscular Hemoglobin 29.9 PG Mean Corpuscular Hemoglobin 33.4 % Concent Red Cell Distribution Width 13.2 % Platelet Count 214 TH/MM3 Mean Platelet Volume 9.3 FL Sodium Level 139 MEQ/L Chloride Level 106 MEQ/L Carbon Dioxide Level 27.9 MEQ/L Anion Gap 5 MEQ/L Blood Urea Nitrogen 28 MG/DL Creatinine 0.96 MG/DL Estimat Glomerular Filtration 83 ML/MIN Rate Random Glucose 192 MG/DL Calcium Level 7.8 MG/DL Test 10/21/16 10/21/16 09:20 10:40 CSF Volume (Tube 1) 9.0 ML CSF Supernatant Color (tube 1) CLEAR CSF Gross Blood (Tube 1) TRACE CSF WBC (Tube 1) 4 /MM3 CSF RBC (Tube 1) 112 /MM3 CSF Neutrophils 10 % CSF Lymphocytes 60 % CSF Monocytes 30 % CSF Glucose 112 MG/DL CSF Total Protein 28.8 MG/DL Urine Specific [place] 1.022 Urine Osmolality 712 MOSM/KG Urine Random Sodium 126 MEQ/L Constitutional Vital Signs Date Time Temp Pulse Resp B/P Pulse Ox O2 Delivery O2 Flow Rate FiO2 10/21/16 11:58 100 40 10/21/16 08:24 100 40 10/21/16 08:00 100.2 86 18 99 175/85 10/21/16 06:00 91 10/21/16 04:11 98 40 10/21/16 04:00 110 10/21/16 04:00 100.0 66 20 171/81 98 10/21/16 04:00 100 10/21/16 02:00 104 10/21/16 01:24 99 40 10/21/16 00:00 70 10/21/16 00:00 100.4 70 18 167/81 100 10/21/16 00:00 100 10/20/16 22:12 99 40 10/20/16 22:00 77 10/20/16 20:11 100 40 10/20/16 20:00 100 10/20/16 20:00 73 10/20/16 20:00 101.3 73 20 182/90 100 10/20/16 19:00 100 Mechanical Ventilator 40 10/20/16 18:00 64 10/20/16 16:23 100 40 10/20/16 16:00 100 10/20/16 16:00 71 10/20/16 16:00 100.9 71 21 190/92 100 10/20/16 14:00 63 10/21/16 07:00 Intake Total 4843 ml Output Total 5950.0 ml Balance -1107.0 ml (Meir Sánchez) Review of Systems/Exam ROS Unable to obtain ROS due to mental status & being intubated. Exam Intubated & mechanically ventilated Patient with eyelid movement to verbal & noxious stimuli Facial grimacing to noxious stimuli PERRLA 3 mm bilaterally Trace movement to of extremities to noxious stimuli Ventricular catheter in place, EVD clamped (Meir Sánchez) Medications Current Medications Current Medications Medications (Trade) Dose Ordered Sig/Nava Route Start Time Stop Time Status Last Admin (Tylenol) 650 mg Q6H PRN PO 10/05/16 02:45 10/21/16 02:16 (Morphine Inj) 2 mg Q2H PRN IV 10/05/16 02:45 10/15/16 19:04 (Protonix Inj) 40 mg DAILY IV 10/05/16 09:00 10/21/16 10:29 (Tears Naturale Opth Soln) 1 drop TID EACH EYE 10/05/16 09:00 10/21/16 10:00 (Zofran Inj) 4 mg Q6H PRN IV 10/05/16 02:45 (Colace) 100 mg Q12H G-TUBE 10/05/16 04:00 10/21/16 05:31 Miscellaneous Information 1 Q361D XX 10/05/16 02:45 10/05/16 02:45 (Chlorhexidine 2% Cloth) Taper DAILY@04 TOP 10/05/16 04:00 10/01/17 03:59 10/21/16 04:00 Chlorhexidine Gluconate 3 pack 3 pack UNSCH PRN TOP 10/05/16 02:45 Levetriacetam 500 mg/Sodium Chloride 105 ml @ 420 mls/hr Q12HR IV 10/05/16 09:00 10/21/16 09:59 (Cardene Inj/NS 250 ml Inj) 260 ml @ 0 mls/hr TITRATE IV 10/05/16 02:45 10/18/16 11:23 (Trandate Inj) 10 mg Q4H PRN IV PUSH 10/05/16 02:45 10/17/16 00:29 (Pravachol) 40 mg DAILY PO 10/05/16 09:00 10/21/16 10:29 (NS Flush) See Protocol DAILY IV FLUSH 10/07/16 09:00 10/21/16 09:59 (NS Flush) See Protocol UNSCH PRN IV FLUSH 10/06/16 12:00 Sodium Chloride UNSCH PRN IV FLUSH 10/06/16 12:00 (Levophed Inj/NS 250 ml Inj) 254 ml @ 0 mls/hr TITRATE IV 10/06/16 18:00 10/21/16 08:12 (Miralax) 17 gm DAILY PO 10/10/16 14:00 10/20/16 08:57 Lactulose 30 ml 30 ml DAILY PO 10/10/16 14:00 10/20/16 08:56 Potassium Chloride 100 ml @ 50 mls/hr Q2H PRN IV 10/14/16 16:00 10/19/16 06:30 (KCl 20 Meq Premix Inj) 100 ml @ 50 mls/hr Q2H PRN IV 10/14/16 16:00 10/15/16 17:29 Potassium Bicarb/ Potassium Chloride 50 meq 50 meq UNSCH PRN PO 10/14/16 16:00 10/20/16 07:04 Potassium Chloride 100 ml @ 25 mls/hr UNSCH PRN IV 10/14/16 16:00 10/18/16 06:50 Potassium Chloride 100 ml @ 50 mls/hr Q2H PRN IV 10/14/16 16:00 10/16/16 12:41 (Magnesium Sulfate Inj/NS Inj) 100 ml @ 50 mls/hr UNSCH PRN IV 10/14/16 16:00 Magnesium Oxide 800 mg 800 mg UNSCH PRN PO 10/14/16 16:00 (Magnesium Sulfate Inj/NS Inj) 100 ml @ 50 mls/hr UNSCH PRN IV 10/14/16 16:00 Potassium Phosphate 2000 mg 2,000 mg Q4H PRN PO 10/14/16 16:00 10/17/16 02:00 (Sodium Phosphate Inj/NS 250 ml Inj) 250 ml @ 42 mls/hr UNSCH PRN IV 10/14/16 16:00 Potassium Phosphate 2000 mg 2,000 mg UNSCH PRN PO/TUBE 10/14/16 16:00 10/18/16 06:51 (Potassium Phosphate Inj/NS 250 ml Inj) 260 ml @ 42 mls/hr UNSCH PRN IV 10/14/16 16:00 Nimodipine 30 mg 30 mg Q2H PO 10/17/16 11:00 10/21/16 11:52 (Neosynephrine Inj/NS 500 ml Inj) 500 ml @ 0 mls/hr TITRATE IV 10/19/16 16:30 10/20/16 16:29 (Cathflo Activase Inj) 2 mg UNSCH PRN IV FLUSH 10/19/16 16:15 10/19/16 18:43 Diphenhydramine HCl 6.25 mg 6.25 mg Q4H PRN IV PUSH 10/19/16 19:15 10/20/16 07:03 Cefepime HCl 2000 mg/Sodium Chloride 100 ml @ 200 mls/hr Q8H IV 10/20/16 13:00 10/21/16 05:31 Metronidazole 100 ml @ 100 mls/hr Q6H IV 10/20/16 14:00 10/21/16 08:21 (Pitressin Inj/ D5W 100 ml Inj) 100 ml @ 6 mls/hr [id number] IV 10/20/16 15:23 10/20/16 16:29 (D50w (Vial) Inj) 25 ml UNSCH PRN IV PUSH 10/20/16 17:15 Insulin Human Regular 1 1 Q6HR SQ 10/20/16 18:00 10/21/16 06:42 (NS 1000 ml Inj) 1,000 ml @ 125 mls/hr Q8H IV 10/21/16 08:30 10/21/16 10:30 (Sodium Chloride) 2 gm Q8HR PO 10/21/16 08:30 10/21/16 11:52 (Meir Sánchez) Medical Decision Making MDM Remarks 1. Minimal neurologic decline most likely r/t infection A. CSF w/o organisms or WBC on Gram stain from yesterday 2. 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 Evolving primarily left basal ganglia region CVA primarily per CT 4. Mild vasospasm right SRI on TCD today 5. No evidence of left-sided vasospasm today (Meir Sánchez) Plan Plan Remarks Will d/c EVD CSF for culture & gram stain Replace sodium per Surgical Medical Equipment Technician Continue abx per Surgical Medical Equipment Technician Continue SBP 160-180 mm Hg per Surgical Medical Equipment Technician Continue Keppra for probable seizure activity Okay for Lovenox from NSGY standpoint Ulcer prophylaxis (Meir Sánchez) Attending Statement I have personally seen and examined the patient on the date of this note. Pertinent documentation and study results have been reviewed by the undersigned. I have personally developed the treatment plan and performed medical decision making. Agree with findings, exam, and treatment plan as noted above. ICPs less than 10 with good waveform. Patient more responsive today. Ventricular drain removed. The undersigned this morning. Continue ISC neurologic checks Continuing nimodipine Discussed with research scholar. Maintain mean arterial pressure elevated for vasospasm. (Gino Mace MD) Meir Sánchez Oct 21, 2016 12:35 Gino Mace MD Oct 21, 2016 19:44
[2016-10-21] MEDS ORDERED: SODIUM CHLORID 0.9% 500 ML INJ 500 ML IV ONE (19:15)
[2016-10-21] MEDS: VASOPRESSIN INJ 40 UNITS in DEXTROSE 5% IN WATER 100ML INJ 98 ML IV SCH ×2 (21:07)
[2016-10-22] VITALS (18 sets, daily range): BP systolic 161–177; BP diastolic 74–102; PULSE 65–84; RESP 17–28; TEMP 99.1–99.7; O2SAT 97–99
[2016-10-22] MEDS: INSULIN NovoLIN REGULAR SUPPLEMENTAL SCALE SQ SCH ×5 (00:06→23:37)
[2016-10-22] MEDS: SODIUM CHLOR 0.9% 1000 ML INJ 1,000 ML IV SCH ×4 (00:30→20:53)
[2016-10-22] MEDS: NOREPINEPHRINE INJ 4 MG in SODIUM CHLOR 0.9% 250 ML INJ 250 ML IV SCH ×2 (00:33→23:29)
[2016-10-22] MEDS: niMODipine 30 MG CAP PO SCH ×12 (00:33→22:15)
[2016-10-22] MEDS: VASOPRESSIN INJ 40 UNITS in DEXTROSE 5% IN WATER 100ML INJ 98 ML IV SCH ×4 (01:26→16:49)
[2016-10-22] MEDS: metroNIDAZOLE 500 MG INJ 100 ML IV SCH ×4 (01:27→20:51)
[2016-10-22] MEDS: DOCUSATE SODIUM 100 MG CAP G-TUBE SCH ×2 (03:00→15:02)
[2016-10-22] MEDS: CHLORHEXIDINE GLUCONATE 2 % 1 PACK (2 CLOTHS) TOP SCH (04:00)
[2016-10-22] MEDS: CEFEPIME INJ 2,000 MG in SODIUM CHLORIDE 0.9% INJ 100 ML IV SCH ×3 (04:16→20:50)
[2016-10-22 04:36] LABS: HEMATOCRIT 25.5 % (39.0-51.0); HEMOGLOBIN 8.5 GM/DL (13.0-17.0); MEAN CELL VOLUME 89.5 FL (80.0-100.0); MEAN CORPUSCULAR HEMOGLOBIN 29.7 PG (27.0-34.0); MEAN CORPUSCULAR HGB CONC 33.2 % (32.0-36.0); MEAN PLATELET VOLUME 9.4 FL (7.0-11.0); PLATELET COUNT 185 TH/MM3 (150-450); RED BLOOD COUNT 2.85 MIL/MM3 (4.50-5.90); RED CELL DISTRIBUTION WIDTH 13.2 % (11.6-17.2); WHITE BLOOD COUNT 13.7 TH/MM3 (4.0-11.0)
[2016-10-22] MEDS: SODIUM CHLORIDE 1 GRAM TAB PO SCH ×3 (04:56→20:51)
[2016-10-22 05:01] LABS: BICARBONATE 25.7 MEQ/L (21.0-32.0); CALCIUM 7.7 MG/DL (8.5-10.1); CREATININE 0.79 MG/DL (0.60-1.30)
[2016-10-22] MEDS ORDERED: 3% SALINE INJ 500 ML IV ONE (06:15)
[2016-10-22] MEDS ORDERED: SODIUM CHLOR 0.9% 1000 ML INJ 1,000 ML IV ONE ×2 (06:15→16:30)
[2016-10-22] MEDS ORDERED: FLUDROCORTISONE ACETATE 0.1 MG TAB PO SCH (09:00)
[2016-10-22] MEDS: levETIRAcetam INJ 500 MG in SODIUM CHLORIDE 0.9% INJ 100 ML IV SCH ×2 (09:11→20:53)
[2016-10-22] MEDS: POLYETHYLENE GLYCOL 17 GM PKG PO SCH (09:11)
[2016-10-22] MEDS: LACTULOSE SYRUP 20 GM/30 ML CUP PO SCH (09:12)
[2016-10-22] MEDS: SODIUM CHLORIDE 0.9% FLUSH 10 ML FLUSH IV FLUSH SCH (09:13)
[2016-10-22] MEDS: PANTOPRAZOLE SODIUM 40 MG VIAL IV SCH (09:13)
[2016-10-22] MEDS: ARTIFICIAL TEARS OPTH SOLN 15 ML BTL EACH EYE SCH ×3 (09:13→16:49)
[2016-10-22] MEDS: PRAVASTATIN SOD 40 MG TAB PO SCH (09:13)
--- NOTE | 2016-10-22 10:03 | HHI.CCPN ---
Subjective Remarks/Hospital Course 51 year old male presents with being brought in as a trauma alert due to a head injury with altered mental status and a diminished GCS. The patient was in the bathroom and fell and hit his head. This was an unwitnessed fall. According to the patient's the patient had been unresponsive for approximately 15 minutes by the time ambulance services arrived. When they arrived the patient was noted to be a GCS of 14, however his mentation would wax and wane and go down as low as 3 again. On arrival to the emergency department he felt extremely nauseated. The CT of the head revealed diffuse subarachnoid bleed. 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 CT head today with some ventricular blood. ICP controlled and patient tolerates lightening of sedation. Volume loaded to maintain SBP > 130s. Opens eyes to voice. 10/07: BP controlled. TCDs to be done today. 10/08: BP control good. Well hydrated. No TCD evidence of spasm. 10/09: TCD today pending. CPP good. No seizure activity. Remains well hydrated. 10/10: TCDs no vasospasm. Remains well hydrated, well perfused. Some peripheral edema as expected. 10/11: Hemodynamics good. Bladder spasm continues. Try Flomax - an alpha kendall , will not impair cerebral vessels. 10/12: Episode of sepsis last night from obstructed Guzman, JONH evident. Much improved now. 10/13: JONH improving. Narrow abx to GNR. 10/14: Aztreonam started for sputum, urine. CT Head acceptable. 10/15: No change in neuro status. BP control good. 10/16: Remains sedated, orally intubated on mechanical ventilation. Ventriculostomy in place. Underwent angiogram with injection of verapamil intra -arterial for minimal vasospasm on 10/15 10/17: Remains sedated, orally intubated on mechanical ventilation. Ventriculostomy drained 65 cc over 8 hours overnight. 10/18: off sedation. withdraws to pain. does not follow commands. per nursing, this is an exam change and he was previously following commands. 10/19: continues off sedation. ICP stable around 5. neuro exam stable. TCDs yesterday with questionable early spasm, but given stable neuro exam, decided to repeat TCD today to eval trend. 10/20: off sedation. taken yesterday for angio with IA verapamil for left MCA, SRI spasm. 10/21: spiked fever yesterday, white cultured. empirically started on broad spectrum abx. CSF sent for culture. initial CSF appeared cloudy but cell count and gram stain reassuring. TCDs yesterday without evidence of vasospasm. this AM sodium dropped from 147 to 139 with net -1L. likely early salt wasting, although up to this point urine studies have not shown concern for this up to now. 10/22: uop increased and sodium continues to downtrend despite salt tabs and ivf. still net -1L. urine studies concerning for salt wasting. sputum with enterobacter. neuro exam still stable. TCDs today without overt evidence of spasm. Objective Vital Signs Date Time Temp Pulse Resp B/P Pulse Ox O2 Delivery O2 Flow Rate FiO2 10/22/16 08:09 99 40 10/22/16 06:00 72 10/22/16 04:00 99.7 17 174/83 10/21/16 19:00 Mechanical Ventilator Intake and Output 10/21/16 10/21/16 10/22/16 08:00 16:00 00:00 Intake Total 1325 ml 2432 ml 2609 ml Output Total 1200 ml 2115 ml 3945 ml Balance 125 ml 317 ml -1336 ml Result Diagram: 10/22/16 0420 10/22/16 0420 Other Results Microbiology Date/Time Procedure Status Source Growth 10/20/16 12:55 Urine Culture - Final Complete Urine Clean Catch NO GROWTH IN 48 HOURS. Imaging Last 24 hours Impressions Pelvis X-Ray 10/05/16109 Signed Impressions: Service Date/Time: Wednesday, October 05, 2016 01:22 - CONCLUSION: Unremarkable examination of the pelvis. Ruben Acuña Jr., MD Head CT 10/05/16109 Signed Impressions: Service Date/Time: Wednesday, October 05, 2016 01:38 - CONCLUSION: Diffuse subarachnoid hemorrhage. Ruben Acuña Jr., MD Chest X-Ray 10/05/16109 Signed Impressions: Service Date/Time: Wednesday, October 05, 2016 01:22 - CONCLUSION: No acute disease. Ruben Acuña Jr., MD Chest CT 10/05/16109 Signed Impressions: Service Date/Time: Wednesday, October 05, 2016 01:46 - CONCLUSION: 1. No acute intrathoracic abnormality. 2. Bibasilar atelectasis. 3. Cardiomegaly. 4. Prior granulomatous disease. Ruben Acuña Jr., MD Cervical Spine CT 10/05/16109 Signed Impressions: Service Date/Time: Wednesday, October 05, 2016 01:40 - CONCLUSION: 1. No fracture or dislocation. 2. Multilevel degenerative changes. Ruben Acuña Jr., MD Abdomen/Pelvis CT 10/05/16109 Signed Impressions: Service Date/Time: Wednesday, October 05, 2016 01:46 - CONCLUSION: 1. No acute trauma. 2. Rounded area of decreased density involving the pancreatic head. I cannot completely exclude pancreatic head mass. At some point MRI of the pancreas is suggested to further evaluate. 3. Focal area of poor enhancement involving the left kidney. This may relate to an area of parenchymal scarring. I cannot completely exclude a mass. This can be further assessed with MRI as well. Ruben Acuña Jr., MD Objective Remarks GENERAL: middle-aged male lying in bed, obtunded. SKIN: Dry HEAD: Normocephalic. EYES: Pupils are 2 mm and reactive bilaterally. NECK: Supple, trachea midline. CARDIOVASCULAR: Regular rate and rhythm. No JVD. RESPIRATORY: Orally intubated on mechanical ventilation, Breath sounds equal bilaterally. Clear, no wheezes or crackles. Good soha excursions. GASTROINTESTINAL: Abdomen soft, non-tender, nondistended. BS active. No guarding. EXTREMITIES: Nonfocal clubbing cyanosis or edema, well perfused. NEURO: does not open eyes. purposeful LUE, withdraws RUE. withdraw bilateral lower extremity. does not follow commands. grimace to pain only. Ventric in place A/P Problem List: (1) 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 ICD Code: I60.8 Status: Acute (2) Intracranial hemorrhage ICD Code: I62.9 Status: Acute (3) Hypertension ICD Code: I10 Status: Acute Assessment and Plan Assessment: 51yM with aneurysmal SAH, post-bleed day 17, s/p basilar artery coiling 10/05. S/p IA Verapamil 10/15 and 10/19 for cerebral vasospasm. He persists in severe encephalopathy, acute hypoxic respiratory failure. Resolving sepsis. off pathway. critically ill. Now in cerebral salt wasting and difficulty in maintaining euvolemia despite aggressive ivf and sodium load. Will increase salt tabs. start 3% nacl. start florinef. strict I/Os. daily TCDs. Also needs trach/peg and while we are in a window without overt vasospasm , will look towards trach in near future. Plan: Neuro: Acute encephalopathy Basilar Aneurysm Aneurysmal Subarachnoid Hemorrhage Aneurysmal Subarachnoid bleed 10/05 Cerebral Vasospasm - Núñez Veliz 5 Lucas grade 3 - Nimodipine. Status post intra-arterial verapamil for vasospasm on 10/15, 10/19 - Pravachol - liberalize SBP 160 - 180 given recent cerebral vasospasm. - Daily TCD's - Basilar tip coiled. - s/p angio with IA verapamil 10/15, 10/19 - goal euvolemia Respiratory: Acute Hypoxic and Hypercarbic Respiratory Failure - Intubated for airway protection - No weaning until neurologically improved and stable, not with high concern for cerebral vasospasm. - requires tracheostomy, will coordinate this with general surgery. likely early next week as long as no ongoing evidence of vasospasm. - DuoNeb's as needed for wheezing CV: Inadequate Cerebral Perfusion Septic Shock- resolving. - goal SBP 160- 180 given recent cerebral vasospasm. - levophed, vasopressin for target blood pressure for cerebral perfusion. Renal: Cerebral Salt Wasting - goal euvolemia - guzman for accurate I/Os - strict I/Os - increase nacl tabs 3gm q8h - florinef 0.2mg q12h - NS bolus - increase NS to 200cc/hr - strict I/Os q1h - urine studies 10/21 consistent with cerebral salt wasting: patient intravascularly hypovolemic on clinical exam - q6h sodium. FEN/GI: Acute Protein Calorie Malnutrition- mild -- vital high protein 40mL/hr. -- daily BMP -- ICU electrolyte protocol. Heme/ID: Fever Leukocytosis prior UTI- s/p full course abx -- 10/20 sputum culture- enterobacter -- 10/20 urine culture- NGTD -- 10/20 CSF: 0 wbc, glu 111, prot 27.8, culture NGTD -- 10/20 Blood cx: NGTD -- 10/21 CSF: NGTD. -- Dr. Mace d/c EVD 10/21 -- vancomycin with pharmacy dosing -- cefepime 2gm iv q8hr -- flagyl 500mg iv q6hr Endocrine: Hyperglycemia of critical illness -- SSI Prophylaxis: - Teds SCDs - No pharmacological prophylaxis due to ICH - Protonix IV Dispo: remain in the ICU. he remains critically ill. Critical Care time exclusive of separately billable procedures: 76 min. Problem Qualifiers (1) Hypertension: Qualified Code: I10 - Essential hypertension Barrett Mccullough MD Oct 22, 2016 10:03
--- NOTE | 2016-10-22 10:52 | RADRPT ---
EXAM DATE/TIME: 10/22/2016 07:40 [facility] COMPARISON: US TRANSCRANIAL DOPPLER COMPLETE, October 21, 2016, 7:54. INDICATIONS : Subarachnoid hemorrhage. MEDICAL HISTORY : Hypertension. Pancreatitis. TIA. Migraines. Cardiovascular disease. Subarachnoid hemorrhage. SURGICAL HISTORY : Ventriculostomy clamp. Ventriculostomy drain. ENCOUNTER: Sequela ACUITY: 2 weeks PAIN SCORE: Nonresponsive. LOCATION: Bilateral cranial Current Exam: Oct 22, 2016 [place] Ratio: Right: 2.4 Left: 2.1 Gregorio Ratio: Right: 1.8 Left: 1.5 Previous Exam: Oct 22, 2016 [place] Ratio: Right: 2.9 Left: 1.5 Gregorio Ratio: Right: 3.5 Left: 1.2 FINDINGS: Examination performed at bedside. Real-time ultrasound with the assistance of color and spectral Dop pler was utilized to evaluate the intracerebral circulation. Time-averaged maximal velocities are ca lculated in cm/s. There is persistent mild elevation of velocity at the right middle cerebral artery. The velocities ar e grossly normal throughout the rest of the examination. The Lindegaard and Gregorio ratios are improved from the prior exam. CONCLUSION: Persistent mild elevation of the velocities in the right middle cerebral artery with improving Lindeg aard and Gregorio ratios. This can be seen with hyperdynamic flow. Vasospasm is not suspected. Tim Garcia MD on October 22, 2016 at 10:36 Board Certified Radiologist. This report was verified electronically.
[2016-10-22] MEDS ORDERED: 3% SALINE INJ 500 ML IV SCH (16:30)
--- NOTE | 2016-10-22 17:06 | HHI.NSPN ---
History Chief Complaint: intubated and sedated Interval History 51-year-old male admitted with positive subarachnoid hemorrhage. Possible seizure activity. Intubated in the emergency room. 10/05/16: Endovascular coiling 10/07/16 rinse intubated and sedated. Ventriculostomy in place 10/09/16: Remains intubated and sedated. Increased agitation with attempts at sedation vacation 10/17/16: Pupils 2 mm. Intubated and sedated. Somewhat more responsive with decreased sedation. External ventricular drain and closed to reservoir again today. 10/21/16: Ventricular drain removed Exam Results Vital Signs Date Time Temp Pulse Resp B/P Pulse Ox O2 Delivery O2 Flow Rate FiO2 10/22/16 16:57 99 35 10/22/16 16:00 99.3 76 28 165/80 10/22/16 09:00 Mechanical Ventilator Intake and Output 10/21/16 10/21/16 10/22/16 08:00 16:00 00:00 Intake Total 1325 ml 2432 ml 2609 ml Output Total 1200 ml 2115 ml 3945 ml Balance 125 ml 317 ml -1336 ml Physical Examination Intubated & mechanically ventilated IV sedation Patient with eyelid movement to verbal & noxious stimuli Facial grimacing to noxious stimuli PERRLA 3 mm bilaterally Right conjugate gaze Moderate grasp bilateral to command and stimulated Ventriculostomy incision site dry Lab, Micro, Other Results Laboratory Tests Test 10/21/16 10/22/16 10/22/16 22:45 04:20 12:03 Sodium Level 138 MEQ/L 137 MEQ/L 136 MEQ/L White Blood Count 13.7 TH/MM3 Red Blood Count 2.85 MIL/MM3 Hemoglobin 8.5 GM/DL Hematocrit 25.5 % Mean Corpuscular Volume 89.5 FL Mean Corpuscular Hemoglobin 29.7 PG Mean Corpuscular Hemoglobin 33.2 % Concent Red Cell Distribution Width 13.2 % Platelet Count 185 TH/MM3 Mean Platelet Volume 9.4 FL Potassium Level 3.8 MEQ/L Chloride Level 104 MEQ/L Carbon Dioxide Level 25.7 MEQ/L Anion Gap 7 MEQ/L Blood Urea Nitrogen 24 MG/DL Creatinine 0.79 MG/DL Estimat Glomerular Filtration 103 ML/MIN Rate Random Glucose 176 MG/DL Calcium Level 7.7 MG/DL Medical Decision Making Impression and Plan Impression: 1. Stable neurologic status following endovascular coiling for subarachnoid hemorrhage-ruptured basilar tip aneurysm.. Patient underwent angiogram with verapamil injection this week for treatment of persistent left greater than right MCA vasospasm Plan: Continue systolic blood pressure 130-170. Stable exam following removal EVD Continuing Keppra due to probable seizure activity reported. Okay for Lovenox from neurosurgery standpoint Ulcer prophylaxis Gino Mace MD Oct 22, 2016 17:06
[2016-10-22] MEDS: FLUDROCORTISONE ACETATE 0.1 MG TAB PO SCH (20:51)
[2016-10-22] MEDS: ACETAMINOPHEN 325 MG TAB PO PRN (22:15)
[2016-10-23] VITALS (19 sets, daily range): BP systolic 167–189; BP diastolic 75–87; PULSE 62–90; RESP 14–28; TEMP 98.4–99.5; O2SAT 98–100
[2016-10-23] MEDS: niMODipine 30 MG CAP PO SCH ×12 (00:02→23:26)
[2016-10-23] MEDS: metroNIDAZOLE 500 MG INJ 100 ML IV SCH ×2 (00:02→08:13)
[2016-10-23] MEDS: SODIUM CHLOR 0.9% 1000 ML INJ 1,000 ML IV SCH ×6 (00:03→23:26)
[2016-10-23] MEDS: CHLORHEXIDINE GLUCONATE 2 % 1 PACK (2 CLOTHS) TOP SCH (02:47)
[2016-10-23] MEDS: DOCUSATE SODIUM 100 MG CAP G-TUBE SCH ×2 (03:17→14:37)
[2016-10-23] MEDS: CEFEPIME INJ 2,000 MG in SODIUM CHLORIDE 0.9% INJ 100 ML IV SCH ×3 (03:17→20:51)
[2016-10-23] MEDS: VASOPRESSIN INJ 40 UNITS in DEXTROSE 5% IN WATER 100ML INJ 98 ML IV SCH ×2 (04:16)
[2016-10-23 05:00] LABS: HEMATOCRIT 23.8 % (39.0-51.0); MEAN CELL VOLUME 89.6 FL (80.0-100.0); MEAN CORPUSCULAR HEMOGLOBIN 30.1 PG (27.0-34.0); MEAN CORPUSCULAR HGB CONC 33.6 % (32.0-36.0); MEAN PLATELET VOLUME 9.7 FL (7.0-11.0); PLATELET COUNT 165 TH/MM3 (150-450); RED BLOOD COUNT 2.66 MIL/MM3 (4.50-5.90); RED CELL DISTRIBUTION WIDTH 12.9 % (11.6-17.2); WHITE BLOOD COUNT 9.7 TH/MM3 (4.0-11.0)
[2016-10-23 05:18] LABS: BICARBONATE 22.3 MEQ/L (21.0-32.0); CALCIUM 7.6 MG/DL (8.5-10.1); CREATININE 0.62 MG/DL (0.60-1.30)
[2016-10-23] MEDS: SODIUM CHLORIDE 1 GRAM TAB PO SCH ×3 (05:19→20:51)
[2016-10-23] MEDS: POTASSIUM CHLOR 40 MEQ PREMIX 100 ML IV PRN ×2 (05:38→08:03)
[2016-10-23] MEDS: INSULIN NovoLIN REGULAR SUPPLEMENTAL SCALE SQ SCH ×4 (05:39→23:16)
[2016-10-23] MEDS ORDERED: SODIUM CHLORID 0.9% 500 ML INJ 500 ML IV ONE (06:45)
[2016-10-23] MEDS: POLYETHYLENE GLYCOL 17 GM PKG PO SCH (08:13)
[2016-10-23] MEDS: PRAVASTATIN SOD 40 MG TAB PO SCH (08:13)
[2016-10-23] MEDS: PANTOPRAZOLE SODIUM 40 MG VIAL IV SCH (08:13)
[2016-10-23] MEDS: FLUDROCORTISONE ACETATE 0.1 MG TAB PO SCH ×2 (08:13→20:51)
[2016-10-23] MEDS: SODIUM CHLORIDE 0.9% FLUSH 10 ML FLUSH IV FLUSH SCH (08:15)
[2016-10-23] MEDS: LACTULOSE SYRUP 20 GM/30 ML CUP PO SCH (08:15)
[2016-10-23] MEDS: ARTIFICIAL TEARS OPTH SOLN 15 ML BTL EACH EYE SCH ×3 (08:15→16:04)
[2016-10-23] MEDS: levETIRAcetam INJ 500 MG in SODIUM CHLORIDE 0.9% INJ 100 ML IV SCH ×2 (08:15→20:50)
--- NOTE | 2016-10-23 08:28 | HHI.CCPN ---
Subjective Remarks/Hospital Course 51 year old male presents with being brought in as a trauma alert due to a head injury with altered mental status and a diminished GCS. The patient was in the bathroom and fell and hit his head. This was an unwitnessed fall. According to the patient's the patient had been unresponsive for approximately 15 minutes by the time ambulance services arrived. When they arrived the patient was noted to be a GCS of 14, however his mentation would wax and wane and go down as low as 3 again. On arrival to the emergency department he felt extremely nauseated. The CT of the head revealed diffuse subarachnoid bleed. 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 CT head today with some ventricular blood. ICP controlled and patient tolerates lightening of sedation. Volume loaded to maintain SBP > 130s. Opens eyes to voice. 10/07: BP controlled. TCDs to be done today. 10/08: BP control good. Well hydrated. No TCD evidence of spasm. 10/09: TCD today pending. CPP good. No seizure activity. Remains well hydrated. 10/10: TCDs no vasospasm. Remains well hydrated, well perfused. Some peripheral edema as expected. 10/11: Hemodynamics good. Bladder spasm continues. Try Flomax - an alpha kendall , will not impair cerebral vessels. 10/12: Episode of sepsis last night from obstructed Guzman, JONH evident. Much improved now. 10/13: JONH improving. Narrow abx to GNR. 10/14: Aztreonam started for sputum, urine. CT Head acceptable. 10/15: No change in neuro status. BP control good. 10/16: Remains sedated, orally intubated on mechanical ventilation. Ventriculostomy in place. Underwent angiogram with injection of verapamil intra -arterial for minimal vasospasm on 10/15 10/17: Remains sedated, orally intubated on mechanical ventilation. Ventriculostomy drained 65 cc over 8 hours overnight. 10/18: off sedation. withdraws to pain. does not follow commands. per nursing, this is an exam change and he was previously following commands. 10/19: continues off sedation. ICP stable around 5. neuro exam stable. TCDs yesterday with questionable early spasm, but given stable neuro exam, decided to repeat TCD today to eval trend. 10/20: off sedation. taken yesterday for angio with IA verapamil for left MCA, SRI spasm. 10/21: spiked fever yesterday, white cultured. empirically started on broad spectrum abx. CSF sent for culture. initial CSF appeared cloudy but cell count and gram stain reassuring. TCDs yesterday without evidence of vasospasm. this AM sodium dropped from 147 to 139 with net -1L. likely early salt wasting, although up to this point urine studies have not shown concern for this up to now. 10/22: uop increased and sodium continues to downtrend despite salt tabs and ivf. still net -1L. urine studies concerning for salt wasting. sputum with enterobacter. neuro exam still stable. TCDs today without overt evidence of spasm. 10/23: still salt wasting. net -500cc/24h. aggressively replacing volume loss and sodium. TCDs today without any evidence of spasm and PI/LI now down to normal ranges. talked with Dr. Prater and while we have a window without spasm, will proceed with tracheostomy today. Likely PEG tube tomorrow. stable neurologic exam. Objective Vital Signs Date Time Temp Pulse Resp B/P Pulse Ox O2 Delivery O2 Flow Rate FiO2 10/23/16 07:47 98 35 10/23/16 06:00 68 10/23/16 04:00 98.6 16 167/75 10/22/16 19:00 Mechanical Ventilator Intake and Output 10/22/16 10/22/16 10/23/16 08:00 16:00 00:00 Intake Total 1419 ml 1977 ml 5478 ml Output Total 3475 ml 3775 ml 4475 ml Balance -2056 ml -1798 ml 1003 ml Result Diagram: 10/23/16 0440 10/23/16 0440 Other Results Microbiology Date/Time Procedure Status Source Growth 10/20/16 12:50 Gram Stain - Final Complete Sputum Endotracheal 10/20/16 12:50 Sputum Culture - Final Complete Enterobacter Cloacae 10/20/16 12:55 Urine Culture - Final Complete Urine Clean Catch NO GROWTH IN 48 HOURS. 10/20/16 13:03 Gram Stain - Final Complete Cerebral Spinal Fluid Lumbar Puncture 10/20/16 13:03 CSF Culture - Final Complete Cerebral Spinal Fluid Lumbar Puncture NO GROWTH IN 72 HOURS Imaging Last 24 hours Impressions Transcranial Doppler Study Complete 10/23/16 0700 Signed Impressions: Service Date/Time: Sunday, October 23, 2016 07:36 - CONCLUSION: Normal Lindegaard and Gregorio ratios, spasm is not suspected. Tim Garcia MD Objective Remarks GENERAL: middle-aged male lying in bed, intubated. SKIN: Dry HEAD: Normocephalic. EYES: Pupils are 2 mm and reactive bilaterally. NECK: Supple, trachea midline. CARDIOVASCULAR: Regular rate and rhythm. No JVD. RESPIRATORY: Orally intubated on mechanical ventilation, Breath sounds equal bilaterally. Clear, no wheezes or crackles. Good soha excursions. GASTROINTESTINAL: Abdomen soft, non-tender, nondistended. BS active. No guarding. EXTREMITIES: Nonfocal clubbing cyanosis or edema, well perfused. NEURO: does not open eyes. purposeful LUE, withdraws RUE. withdraw bilateral lower extremity. does not follow commands. grimace to pain only. A/P Problem List: (1) 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 ICD Code: I60.8 Status: Acute (2) Intracranial hemorrhage ICD Code: I62.9 Status: Acute (3) Hypertension ICD Code: I10 Status: Acute Assessment and Plan Assessment: 51yM with aneurysmal SAH, post-bleed day 18, s/p basilar artery coiling 10/05. S/p IA Verapamil 10/15 and 10/19 for cerebral vasospasm. He persists in severe encephalopathy, acute hypoxic respiratory failure. Resolving sepsis. off pathway. critically ill. Now in cerebral salt wasting and difficulty in maintaining euvolemia despite aggressive ivf and sodium load. Continue salt tabs, 3%, florinef, and increased NS mivf. strict I/Os. daily TCDs. while we have a window without evidence of spasm yesterday or today, will pursue Trach today and likely PEG tomorrow. Also continues to grow enterobacter in the sputum, but now developing resistance. Will narrow abx therapy and set full course of abx. Plan: Neuro: Acute encephalopathy Basilar Aneurysm Aneurysmal Subarachnoid Hemorrhage Aneurysmal Subarachnoid bleed 10/05 Cerebral Vasospasm - Núñez Veliz 5 Lucas grade 3 - Nimodipine. Status post intra-arterial verapamil for vasospasm on 10/15, 10/19 - Pravachol - liberalize SBP 160 - 180 given recent cerebral vasospasm. - Daily TCD's - Basilar tip coiled. - s/p angio with IA verapamil 10/15, 10/19 - goal euvolemia Respiratory: Acute Hypoxic and Hypercarbic Respiratory Failure - Intubated for airway protection - No weaning until neurologically improved and stable, not with high concern for cerebral vasospasm. - trach today given window in vasospasm. - DuoNeb's as needed for wheezing CV: Inadequate Cerebral Perfusion Septic Shock- resolving. - goal SBP 160- 180 given recent cerebral vasospasm. - levophed for target blood pressure for cerebral perfusion. Renal: Cerebral Salt Wasting - goal euvolemia - guzman for accurate I/Os - strict I/Os - nacl tabs 3gm q8h - florinef 0.2mg q12h - NS @ 200cc/hr - strict I/Os q1h - urine studies 10/21 consistent with cerebral salt wasting: patient intravascularly hypovolemic on clinical exam - q6h sodium. - NaCl boluses as needed to maintain euvolemia. FEN/GI: Acute Protein Calorie Malnutrition- mild -- vital high protein 40mL/hr. -- daily BMP -- ICU electrolyte protocol. Heme/ID: Fever Leukocytosis prior UTI- s/p full course abx -- 10/20 sputum culture- enterobacter, some reistance. sensitive to Cefepime. -- 10/20 urine culture- NGTD -- 10/20 CSF: 0 wbc, glu 111, prot 27.8, culture NGTD -- 10/20 Blood cx: NGTD -- 10/21 CSF: NGTD. -- Dr. Mace d/c EVD 10/21 -- d/c vancomycin and flagyl. -- Continue cefepime 2gm iv q8hr for total 10 day course given early resistance of bacteria. anticipated stop date 10/29 Endocrine: Hyperglycemia of critical illness -- SSI Prophylaxis: - Teds SCDs - start Lovenox per nsgy. - Protonix IV Dispo: remain in the ICU. he remains critically ill. Critical Care time exclusive of separately billable procedures: 51 min. Problem Qualifiers (1) Hypertension: Qualified Code: I10 - Essential hypertension Barrett Mccullough MD Oct 23, 2016 08:28 - strict I/Os - increase nacl tabs 3gm q8h - florinef 0.2mg q12h - NS bolus - increase NS to 200cc/hr - strict I/Os q1h - urine studies 10/21 consistent with cerebral salt wasting: patient intravascularly hypovolemic on clinical exam - q6h sodium. FEN/GI: Acute Protein Calorie Malnutrition- mild -- vital high protein 40mL/hr. -- daily BMP -- ICU electrolyte protocol. Heme/ID: Fever Leukocytosis prior UTI- s/p full course abx -- 10/20 sputum culture- enterobacter -- 10/20 urine culture- NGTD -- 10/20 CSF: 0 wbc, glu 111, prot 27.8, culture NGTD -- 10/20 Blood cx: NGTD -- 10/21 CSF: NGTD. -- Dr. Mace d/c EVD 10/21 -- vancomycin with pharmacy dosing -- cefepime 2gm iv q8hr -- flagyl 500mg iv q6hr Endocrine: Hyperglycemia of critical illness -- SSI Prophylaxis: - Teds SCDs - No pharmacological prophylaxis due to ICH - Protonix IV Dispo: remain in the ICU. he remains critically ill. Critical Care time exclusive of separately billable procedures: 76 min. Problem Qualifiers (1) Hypertension: Qualified Code: I10 - Essential hypertension Barrett Mccullough MD Oct 23, 2016 08:28
--- NOTE | 2016-10-23 10:04 | RADRPT ---
EXAM DATE/TIME: 10/23/2016 07:36 [facility] COMPARISON: US TRANSCRANIAL DOPPLER COMPLETE, October 19, 2016, 8:27. ANGIOGRAM, CEREBRAL WO ARCH, October 19, 2016, 16:06. US TRANSCRANIAL DOPPLER COMPLETE, October 20, 2016, 11:23. US TRANSCRANIAL DOPPLER COMPLETE, October 21, 2016, 7:54. US TRANSCRANIAL DOPPLER COMPLETE, October 22, 2016, 7:40. INDICATIONS : Subarachnoid hemorrhage. MEDICAL HISTORY : Hypertension. Pancreatitis. TIA. Subarachnoid hemorrhage. SURGICAL HISTORY : Ventriculostomy clamp. Ventriculostomy drain. ENCOUNTER: Subsequent ACUITY: 1 month PAIN SCORE: Nonresponsive. LOCATION: Bilateral cranial Current Exam: Oct 23, 2016 [place] Ratio: Right: 2.2 Left: 2.8 Gregorio Ratio: Right: 1.1 Left: 1.6 Previous Exam: Oct 22, 2016 [place] Ratio: Right: 2.4 Left: 2.1 Gregorio Ratio: Right: 1.8 Left: 1.5 FINDINGS: Examination performed at bedside. Real-time ultrasound with the assistance of color and spectral Dop pler was utilized to evaluate the intracerebral circulation. Time-averaged maximal velocities are ca lculated in cm/s. There is persistent mild elevation of the peak systolic velocities in the middle cerebral artery terr itories being more prominent right than the left. This pattern is stable when compared to the most re cent transcranial Doppler. Over the last several days, the peak systolic velocity on the right has de creased while the peak systolic velocity on the left has increased.. The ratios are within normal grayson its. CONCLUSION: Normal Lindegaard and Gregorio ratios, spasm is not suspected. Tim Garcia MD on October 23, 2016 at 9:56 Board Certified Radiologist. This report was verified electronically.
[2016-10-23] MEDS ORDERED: CISATRACURIUM BESYLATE 200 MG/20 ML VIAL IV ONE (10:30)
[2016-10-23] MEDS ORDERED: PROPOFOL 1000 MG/100 ML INJ 100 ML IV SCH (10:30)
--- NOTE | 2016-10-23 11:18 | HHI.PR ---
Immediate Post Op Note Procedure Date: Oct 23, 2016 Pre Op Diagnosis: acute respiratory failure Post Op Diagnosis: same Surgeon: Darrin Prater MD Body Line Finisher(s): Dr. Mccullough Procedure: bedside perc trach Findings: good end tidal Complications: none Specimen(s) removed: none Anesthesia: General Drains: None Patient to: Other (icu) Patient Condition: Darrin Cruz MD Oct 23, 2016 11:18
--- NOTE | 2016-10-23 12:17 | RADRPT ---
EXAM DATE/TIME: 10/23/2016 11:18 [facility] COMPARISON: CHEST SINGLE AP, October 11, 2016, 20:57. INDICATIONS : Evaluate for trach placement. MEDICAL HISTORY : Hypertension. SURGICAL HISTORY : None. ENCOUNTER: Initial ACUITY: 1 day PAIN SCORE: Non-responsive. LOCATION: Bilateral chest FINDINGS: A single view of the chest demonstrates the lungs to be symmetrically aerated without evidence of mas s, infiltrate or effusion. The heart size is mildly enlarged. Osseous structures are intact. There is a tracheostomy tube and a right PICC line in good position. The tip of the PICC line is in the rig ht innominate vein region. CONCLUSION: Mild cardiomegaly. The lungs are clear. Tim Garcia MD on October 23, 2016 at 12:14 Board Certified Radiologist. This report was verified electronically.
--- NOTE | 2016-10-23 12:27 | PD.PROCEDR ---
Procedure Note Procedure Procedure: Diagnostic Fiberoptic Bronchoscopy Diagnosis: Chronic respiratory failure Indications: For percutaneous dilation tracheostomy Consent: Written consent was obtained Anesthesia: Propofol IV, cisatracurium IV, fentanyl IV Description of the Procedure: The patient was sedated and mechanically ventilated. The patient was placed on 100% FIO2 and a volume control mode of ventilation. The fiberoptic bronchoscopy was inserted via 8.0 oral endotracheal tube. The trachea, right and left mainstem bronchi, and sub- segmental bronchi were evaluated. The endobronchial anatomy was normal. Findings: There was a minimal amount of very thin clear secretions in the main airways. Under direct bronchoscopic visualization, the needle, guidewire, serial dilators, and percutaneous tracheostomy was performed. Please see separate procedure for details. Prior to any positive pressure ventilation, the tracheostomy was confirmed in the lumen of the trachea by direct bronchoscopic visualization. After the tracheostomy, there was minimal bloody secretions in the main airways which was suctioned aggressively. BAL samples: Samples were not sent. The patient tolerated the procedure well with no hemodynamic instability or hypoxia. There were no immediate complications noted. At the conclusion of the procedure, the patient was placed back on their pre-procedure ventilatory settings. There was minimal EBL. A chest x-ray has been ordered. I personally performed the procedure. Barrett Mccullough MD Oct 23, 2016 12:27
--- NOTE | 2016-10-23 16:36 | MB ---
cc: DANNY MALHOTRA MD DATE OF CONSULTATION: 10/23/2016. REASON FOR CONSULTATION: Tracheostomy, PEG. HISTORY OF PRESENT ILLNESS: The patient is a 51-year-old male who initially presented with a fall. He was noted unresponsive lying in the shower. He was unconscious for approximately 15 minutes and was brought to the hospital with questionable seizure activity en route. Initial GCS in the emergency room was 14; however, he did end up getting intubated for airway protection and has currently had a prolonged acute respiratory failure with failure to wean from the ventilator. The patient also needed feeding access. PAST MEDICAL HISTORY: 1. Hypertension. 2. Previous stroke. PAST SURGICAL HISTORY: No prior surgeries. MEDICATIONS: See the electronic medical record. FAMILY HISTORY: Per chart, denies any cardiac or neurologic diseases. SOCIAL HISTORY: Per chart, denies smoking, EtOH or IV drug abuse. ALLERGIES: 1. PENICILLIN. 2. SULFA. REVIEW OF SYSTEMS: GENERAL: Unable to document. HEAD, EYES, EARS, NOSE, THROAT: Unable to document. NEUROLOGIC: Stroke and intracranial hemorrhage. RESPIRATORY: Acute respiratory failure. Otherwise unable to document. CARDIAC: Unable to document. Hypertension. ABDOMEN: Unable to document. EXTREMITIES: Unable to document. GENITOURINARY: Unable to document. ENDOCRINE: Unable to document. PSYCHIATRIC: Unable to document. PHYSICAL EXAMINATION: GENERAL: In no acute distress. VITAL SIGNS: Temperature 98.4, pulse 68, blood pressure 169/83, pulse oximetry 99%, respiratory rate 16 on 35% FIO2. HEAD, EYES, EARS, NOSE, THROAT: Eyes closed. ET tube in place. Nasogastric tube in place. Moist mucous membranes. NECK: The neck is supple. LUNGS: Bilateral expansion. Clear. HEART: S1 and S2. Regular. ABDOMEN: The abdomen is soft, nontender and nondistended. EXTREMITIES: Warm and well-perfused. 2+ pulses lower extremities. NEUROLOGIC: GCS of . PSYCHIATRIC: Unable to obtain. INTEGUMENT: No obvious masses or skin lesions. LABORATORY AND DIAGNOSTIC DATA: WBC is 9.7, hemoglobin 8.0, hematocrit 22.8, platelets 165,000. Sodium 135, potassium 3.2, chloride 105, BUN and creatinine 0.62, calcium 7.6. INR is 0.09. CT head: Aneurysm coils placed. Some residual subarachnoid hemorrhage temporal region. No new hemorrhages. ASSESSMENT: The patient is 51 years old with intracranial hemorrhage, acute respiratory failure, prolonged intubation, needing feeding access. After full clinical, laboratory and radiologic workup, the patient with above-named issue including a prolonged intubation and failure to wean from vent. At this point, discussed with medical staff and consent obtained for both tracheostomy placement and PEG-tube. The risks, benefits, and alternatives were discussed. Continue supportive care, ICU management and will plan for the above procedures. MD OC Pastrana/PRANAY /3:09 PM /4:25 PM MTDYsabel
[2016-10-23] MEDS: LABETALOL HCL 100 MG/20 ML VIAL IV PUSH PRN (17:17)
--- NOTE | 2016-10-23 17:37 | HHI.NSPN ---
History Chief Complaint: intubated and sedated Interval History 51-year-old male admitted with positive subarachnoid hemorrhage. Possible seizure activity. Intubated in the emergency room. 10/05/16: Endovascular coiling 10/07/16 rinse intubated and sedated. Ventriculostomy in place 10/09/16: Remains intubated and sedated. Increased agitation with attempts at sedation vacation 10/17/16: Pupils 2 mm. Intubated and sedated. Somewhat more responsive with decreased sedation. External ventricular drain and closed to reservoir again today. 10/21/16: Ventricular drain removed Exam Results Vital Signs Date Time Temp Pulse Resp B/P Pulse Ox O2 Delivery O2 Flow Rate FiO2 10/23/16 16:53 100 35 10/23/16 16:00 98.6 76 14 189/87 10/23/16 07:00 Mechanical Ventilator Intake and Output 10/22/16 10/22/16 10/23/16 08:00 16:00 00:00 Intake Total 1419 ml 1977 ml 5478 ml Output Total 3475 ml 3775 ml 4475 ml Balance -2056 ml -1798 ml 1003 ml Physical Examination Intubated & mechanically ventilated IV sedation Mild opening to voice Facial grimacing to noxious stimuli PERRLA 4 mm bilaterally Moderate conjugate extraocular movements Moderate grasp bilateral to command. Ventriculostomy incision site dry Lab, Micro, Other Results Laboratory Tests Test 10/22/16 10/23/16 10/23/16 10/23/16 19:30 00:18 04:40 12:00 Sodium Level 135 MEQ/L 138 MEQ/L 137 MEQ/L 137 MEQ/L White Blood Count 9.7 TH/MM3 Red Blood Count 2.66 MIL/MM3 Hemoglobin 8.0 GM/DL Hematocrit 23.8 % Mean Corpuscular Volume 89.6 FL Mean Corpuscular Hemoglobin 30.1 PG Mean Corpuscular Hemoglobin 33.6 % Concent Red Cell Distribution Width 12.9 % Platelet Count 165 TH/MM3 Mean Platelet Volume 9.7 FL Potassium Level 3.2 MEQ/L 3.7 MEQ/L Chloride Level 105 MEQ/L Carbon Dioxide Level 22.3 MEQ/L Anion Gap 10 MEQ/L Blood Urea Nitrogen 20 MG/DL Creatinine 0.62 MG/DL Estimat Glomerular Filtration 137 ML/MIN Rate Random Glucose 172 MG/DL Calcium Level 7.6 MG/DL Medical Decision Making Impression and Plan Impression: 1. Stable neurologic status following endovascular coiling for subarachnoid hemorrhage-ruptured basilar tip aneurysm.. Patient underwent angiogram with verapamil injection this week for treatment of persistent left greater than right MCA vasospasm Plan: Continue systolic blood pressure 130-170. Change sodium monitoring to daily Stable exam following removal EVD Continuing Keppra due to probable seizure activity reported. Okay for Lovenox from neurosurgery standpoint Ulcer prophylaxis Gino Mace MD Oct 23, 2016 17:37
[2016-10-23] MEDS: ENOXAPARIN SODIUM 40 MG/0.4 ML SYRINGE SQ SCH (20:40)
[2016-10-24] VITALS (19 sets, daily range): BP systolic 163–194; BP diastolic 73–93; PULSE 70–99; RESP 18–21; TEMP 98.6–99.7; O2SAT 97–100
[2016-10-24] MEDS: niMODipine 30 MG CAP PO SCH ×12 (01:12→23:03)
[2016-10-24] MEDS: DOCUSATE SODIUM 100 MG CAP G-TUBE SCH ×2 (02:45→15:55)
[2016-10-24] MEDS: 3% SALINE INJ 500 ML IV SCH ×2 (02:45→10:32)
[2016-10-24] MEDS: CHLORHEXIDINE GLUCONATE 2 % 1 PACK (2 CLOTHS) TOP SCH (03:19)
[2016-10-24] MEDS: CEFEPIME INJ 2,000 MG in SODIUM CHLORIDE 0.9% INJ 100 ML IV SCH ×3 (04:25→19:56)
[2016-10-24 05:01] LABS: MEAN CORPUSCULAR HEMOGLOBIN 30.6 PG (27.0-34.0); MEAN CORPUSCULAR HGB CONC 34.4 % (32.0-36.0); MEAN PLATELET VOLUME 9.5 FL (7.0-11.0); PLATELET COUNT 234 TH/MM3 (150-450); RED BLOOD COUNT 2.93 MIL/MM3 (4.50-5.90); RED CELL DISTRIBUTION WIDTH 13.4 % (11.6-17.2)
[2016-10-24] MEDS: SODIUM CHLORIDE 1 GRAM TAB PO SCH ×3 (05:12→19:56)
[2016-10-24 05:54] LABS: BICARBONATE 25.7 MEQ/L (21.0-32.0); CREATININE 0.74 MG/DL (0.60-1.30)
[2016-10-24] MEDS: INSULIN NovoLIN REGULAR SUPPLEMENTAL SCALE SQ SCH ×4 (06:00→23:43)
[2016-10-24] MEDS: POTASSIUM CHLOR 20 MEQ PREMIX 100 ML IV PRN (06:02)
[2016-10-24] MEDS ORDERED: PROPOFOL 200 MG/20 ML AMP IV ONE (08:53)
[2016-10-24] MEDS: FLUDROCORTISONE ACETATE 0.1 MG TAB PO SCH ×2 (09:00→19:56)
[2016-10-24] MEDS: PRAVASTATIN SOD 40 MG TAB PO SCH (09:00)
[2016-10-24] MEDS: ARTIFICIAL TEARS OPTH SOLN 15 ML BTL EACH EYE SCH ×3 (09:00→17:12)
[2016-10-24] MEDS: POLYETHYLENE GLYCOL 17 GM PKG PO SCH (09:00)
[2016-10-24] MEDS: LACTULOSE SYRUP 20 GM/30 ML CUP PO SCH (09:00)
--- NOTE | 2016-10-24 09:26 | HHI.PR ---
Immediate Post Op Note Procedure Date: Oct 24, 2016 Pre Op Diagnosis: SDH, feeding difficulty adult Post Op Diagnosis: same Surgeon: Darrin Prater MD Agronomy Manager(s): Jenny HAWKINS Procedure: PEG Findings: Good placement, Complications: none Specimen(s) removed: none Estimated blood loss: none Anesthesia: Other (propofal 130) Patient to: Other (ICU) Patient Condition: Fair Darrin Prater MD Oct 24, 2016 09:26
--- NOTE | 2016-10-24 10:28 | HHI.NSPN ---
(Meir Sánchez [employer] K[employer] OPERATOR) Note Status Status: Progress Note (Meir Sánchez) Interval History Interval History 51 year old male presents with being brought in as a trauma alert due to a head injury with altered mental status and a diminished GCS. The patient was in the bathroom and fell and hit his head. This was an unwitnessed fall. According to the patient's the patient had been unresponsive for approximately 15 minutes by the time ambulance services arrived. When they arrived the patient was noted to be a GCS of 14, however his mentation would wax and wane and go down as low as 3 again. On arrival to the emergency department he felt extremely nauseated. The CT of the head revealed diffuse subarachnoid bleed. Emergently intubated in the trauma bay. Possible seizure activity. Intubated in the emergency room. 10/05/16: Endovascular coiling 10/07/16 rinse intubated and sedated. Ventriculostomy in place 10/09/16: Remains intubated and sedated. Increased agitation with attempts at sedation vacation 10/17/16: Pupils 2 mm. Intubated and sedated. Somewhat more responsive with decreased sedation. External ventricular drain and closed to reservoir again today. 10/19/16: TCD with vasospasm, to angio with 10 mg Verapamil IA given. 10/20/16: Patient with fevers up to 102.8 per Nursing and cultures sent, Nursing reports CSF milky & with sediment. TCD being repeated this afternoon due to vast difference from that done this morning and yesterday. Geological Engineering Teacher increased SBP parameters to 180-200 mm Hg to help overcome vasospasms. No increase in ICP. 10/21/16: Still with elevated temp but not as high. TCD yesterday demonstrated resolution of vasospasms but today it demonstrated a right SRI vasospasm. Patient with facial grimacing and attempted eye opening. CSF specimen sent yesterday w/o any organisms or WBCs seen on Gram stain. 10/23/16: Trach done 10/24/16: PEG done at bedside prior to being seen. Nursing reports prior to sedation he was following commands to all extremities although right was weaker. (Meir Sánchez) Labs, Micro, & Vital Signs Constitutional Vital Signs Date Time Temp Pulse Resp B/P Pulse Ox O2 Delivery O2 Flow Rate FiO2 10/24/16 07:51 99 35 10/24/16 07:00 100 Mechanical Ventilator 35 10/24/16 06:00 70 10/24/16 04:53 98 35 10/24/16 04:00 98.8 80 18 163/78 98 10/24/16 04:00 80 10/24/16 04:00 35 10/24/16 02:00 76 10/24/16 00:20 98 35 10/24/16 00:00 35 10/24/16 00:00 91 10/24/16 00:00 99.7 91 19 168/73 98 10/23/16 22:00 88 10/23/16 20:46 99 35 10/23/16 20:00 90 10/23/16 20:00 35 10/23/16 20:00 99.5 82 28 179/82 100 10/23/16 19:00 100 Mechanical Ventilator 35 10/23/16 18:00 82 10/23/16 16:53 100 35 10/23/16 16:00 98.6 76 14 189/87 100 10/23/16 16:00 35 10/23/16 16:00 76 10/23/16 14:00 35 10/23/16 14:00 79 10/23/16 12:19 100 35 10/23/16 12:00 71 10/23/16 12:00 100 10/23/16 12:00 98.4 71 20 180/83 99 10/23/16 11:30 99 100 10/24/16 07:00 Intake Total 11156 ml Output Total 97747 ml Balance -1582 ml (Meir Sánchez) Review of Systems/Exam ROS Unable to obtain ROS due to mental status & being intubated. Exam Respirations slightly coarse, equal excursion, trached & mechanically ventilated. RRR w/o M/G/R but slightly fast, monitor is sinus tachycardia w/o any ectopy noted Abdomen distended, bowel sounds not appreciated, s/p PEG tube LUQ this morning. Attempted eye opening to command, PERRLA 4 mm bilaterally. Weak hand grasp to command, most likely due to residual sedation, does wiggle toes on command. Ventriculostomy incision site dry. (Meir Sánchez) Medications Current Medications Current Medications Medications (Trade) Dose Ordered Sig/Nava Route Start Time Stop Time Status Last Admin (Tylenol) 650 mg Q6H PRN PO 10/05/16 02:45 10/22/16 22:15 (Protonix Inj) 40 mg DAILY IV 10/05/16 09:00 10/23/16 08:13 (Tears Naturale Opth Soln) 1 drop TID EACH EYE 10/05/16 09:00 10/23/16 16:04 (Zofran Inj) 4 mg Q6H PRN IV 10/05/16 02:45 (Colace) 100 mg Q12H G-TUBE 10/05/16 04:00 10/23/16 03:17 Miscellaneous Information 1 Q361D XX 10/05/16 02:45 10/05/16 02:45 (Chlorhexidine 2% Cloth) 3 pack Taper DAILY@04 TOP 10/05/16 04:00 10/01/17 03:59 10/24/16 03:19 Chlorhexidine Gluconate 3 pack 3 pack UNSCH PRN TOP 10/05/16 02:45 Levetriacetam 500 mg/Sodium Chloride 105 ml @ 420 mls/hr Q12HR IV 10/05/16 09:00 10/23/16 20:50 (Cardene Inj/NS 250 ml Inj) 260 ml @ 0 mls/hr TITRATE IV 10/05/16 02:45 10/18/16 11:23 (Trandate Inj) 10 mg Q4H PRN IV PUSH 10/05/16 02:45 10/23/16 17:17 (Pravachol) 40 mg DAILY PO 10/05/16 09:00 10/23/16 08:13 (NS Flush) See Protocol DAILY IV FLUSH 10/07/16 09:00 10/23/16 08:15 (NS Flush) See Protocol UNSCH PRN IV FLUSH 10/06/16 12:00 Sodium Chloride UNSCH PRN IV FLUSH 10/06/16 12:00 (Levophed Inj/NS 250 ml Inj) 254 ml @ 0 mls/hr TITRATE IV 10/06/16 18:00 10/22/16 23:29 (Miralax) 17 gm DAILY PO 10/10/16 14:00 10/23/16 08:13 Lactulose 30 ml 30 ml DAILY PO 10/10/16 14:00 10/22/16 09:12 Potassium Chloride 100 ml @ 50 mls/hr Q2H PRN IV 10/14/16 16:00 10/23/16 08:03 (KCl 20 Meq Premix Inj) 100 ml @ 50 mls/hr Q2H PRN IV 10/14/16 16:00 10/15/16 17:29 Potassium Bicarb/ Potassium Chloride 50 meq 50 meq UNSCH PRN PO 10/14/16 16:00 10/20/16 07:04 Potassium Chloride 100 ml @ 25 mls/hr UNSCH PRN IV 10/14/16 16:00 10/18/16 06:50 Potassium Chloride 100 ml @ 50 mls/hr Q2H PRN IV 10/14/16 16:00 10/24/16 06:02 (Magnesium Sulfate Inj/NS Inj) 100 ml @ 50 mls/hr UNSCH PRN IV 10/14/16 16:00 Magnesium Oxide 800 mg 800 mg UNSCH PRN PO 10/14/16 16:00 (Magnesium Sulfate Inj/NS Inj) 100 ml @ 50 mls/hr UNSCH PRN IV 10/14/16 16:00 Potassium Phosphate 2000 mg 2,000 mg Q4H PRN PO 10/14/16 16:00 10/17/16 02:00 (Sodium Phosphate Inj/NS 250 ml Inj) 250 ml @ 42 mls/hr UNSCH PRN IV 10/14/16 16:00 Potassium Phosphate 2000 mg 2,000 mg UNSCH PRN PO/TUBE 10/14/16 16:00 10/18/16 06:51 (Potassium Phosphate Inj/NS 250 ml Inj) 260 ml @ 42 mls/hr UNSCH PRN IV 10/14/16 16:00 (Nimotop) 30 mg Q2H PO 10/17/16 11:00 10/24/16 06:01 (Cathflo Activase Inj) 2 mg UNSCH PRN IV FLUSH 10/19/16 16:15 10/19/16 18:43 Diphenhydramine HCl 6.25 mg 6.25 mg Q4H PRN IV PUSH 10/19/16 19:15 10/20/16 07:03 (Maxipime Inj/NS Inj) 100 ml @ 200 mls/hr Q8H IV 10/20/16 13:00 10/29/16 23:59 10/24/16 04:25 (D50w (Vial) Inj) 25 ml UNSCH PRN IV PUSH 10/20/16 17:15 Insulin Human Regular 1 1 Q6HR SQ 10/20/16 18:00 10/23/16 05:39 (NS 1000 ml Inj) 1,000 ml @ 200 mls/hr Q5H IV 10/21/16 08:30 10/23/16 23:26 (Sodium Chloride) 3 gm Q8HR PO 10/22/16 14:00 10/24/16 05:12 Fludrocortisone Acetate 0.2 mg 0.2 mg Q12HR PO 10/22/16 21:00 10/23/16 20:51 (Diprivan 1000 Mg/100ml Inj) 100 ml @ 0 mls/hr TITRATE IV 10/23/16 10:30 Enoxaparin Sodium 40 mg 40 mg Q24H SQ 10/23/16 21:00 (Sodium Chloride 3% Inj) 500 ml @ 10 mls/hr CONTINUOUS IV 10/23/16 20:00 10/24/16 02:45 (Meir Sánchez) Medical Decision Making MDM Remarks 1. Neurologic function improving slowly 2. 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 Evolving primarily left basal ganglia region CVA primarily per CT 4. CSF w/o any growth (Meir Sánchez) Plan Plan Remarks Replace sodium per Surgical Geological Engineering Teacher Continue abx per Surgical Geological Engineering Teacher Continue SBP 160-180 mm Hg per Surgical Geological Engineering Teacher Continue Keppra for probable seizure activity Okay for Lovenox from NSGY standpoint Ulcer prophylaxis (Meir Sánchez) Attending Statement I have personally seen and examined the patient on the date of this note. Pertinent documentation and study results have been reviewed by the undersigned. I have personally developed the treatment plan and performed medical decision making. Agree with findings, exam, and treatment plan as noted above. Not following commands today, but remains reasonably responsive, mild to moderate spontaneous eye opening. (Gino Mace MD) Meir Sánchez Oct 24, 2016 10:28 Gino Mace MD Oct 24, 2016 21:10
[2016-10-24] MEDS: levETIRAcetam INJ 500 MG in SODIUM CHLORIDE 0.9% INJ 100 ML IV SCH ×2 (10:30→19:56)
[2016-10-24] MEDS: PANTOPRAZOLE SODIUM 40 MG VIAL IV SCH (10:30)
[2016-10-24] MEDS: SODIUM CHLORIDE 0.9% FLUSH 10 ML FLUSH IV FLUSH SCH (10:31)
--- NOTE | 2016-10-24 10:32 | RADRPT ---
EXAM DATE/TIME: 10/24/2016 07:48 [facility] COMPARISON: US TRANSCRANIAL DOPPLER COMPLETE, October 23, 2016, 7:36. INDICATIONS : Subarachnoid hemorrhage. MEDICAL HISTORY : Hypertension. Pancreatitis. TIA. Subarachnoid hemorrhage. SURGICAL HISTORY : Ventriculostomy clamp. Ventriculostomy drain. ENCOUNTER: [facility] ACUITY: 1 day PAIN SCORE: Nonresponsive. LOCATION: Bilateral cranial Current Exam: Oct 24, 2016 [place] Ratio: Right: 3.0 Left: 2.3 Gregorio Ratio: Right: 2.4 Left: 1.1 Previous Exam: Oct 23, 2016 [place] Ratio: Right: 2.2 Left: 2.8 Gregorio Ratio: Right: 1.1 Left: 1.6 FINDINGS: Examination performed at bedside. Real-time ultrasound with the assistance of color and spectral Dop pler was utilized to evaluate the intracerebral circulation. Time-averaged maximal velocities are ca lculated in cm/s. CONCLUSION: 1. Slightly elevated [place] ratio on the right characteristic of mild vasospasm. 2. [place] and Gregorio ratios are otherwise negative. Gume Mckeon MD on October 24, 2016 at 9:55 Board Certified Radiologist. This report was verified electronically.
[2016-10-24] MEDS: NOREPINEPHRINE INJ 4 MG in SODIUM CHLOR 0.9% 250 ML INJ 250 ML IV SCH ×2 (10:53→22:49)
[2016-10-24] MEDS: SODIUM CHLOR 0.9% 1000 ML INJ 1,000 ML IV SCH ×2 (11:22→20:28)
--- NOTE | 2016-10-24 15:13 | HHI.CCPN ---
Subjective Remarks/Hospital Course 51 year old male presents with being brought in as a trauma alert due to a head injury with altered mental status and a diminished GCS. The patient was in the bathroom and fell and hit his head. This was an unwitnessed fall. According to the patient's the patient had been unresponsive for approximately 15 minutes by the time ambulance services arrived. When they arrived the patient was noted to be a GCS of 14, however his mentation would wax and wane and go down as low as 3 again. On arrival to the emergency department he felt extremely nauseated. The CT of the head revealed diffuse subarachnoid bleed. 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 CT head today with some ventricular blood. ICP controlled and patient tolerates lightening of sedation. Volume loaded to maintain SBP > 130s. Opens eyes to voice. 10/07: BP controlled. TCDs to be done today. 10/08: BP control good. Well hydrated. No TCD evidence of spasm. 10/09: TCD today pending. CPP good. No seizure activity. Remains well hydrated. 10/10: TCDs no vasospasm. Remains well hydrated, well perfused. Some peripheral edema as expected. 10/11: Hemodynamics good. Bladder spasm continues. Try Flomax - an alpha kendall , will not impair cerebral vessels. 10/12: Episode of sepsis last night from obstructed Guzman, JONH evident. Much improved now. 10/13: JONH improving. Narrow abx to GNR. 10/14: Aztreonam started for sputum, urine. CT Head acceptable. 10/15: No change in neuro status. BP control good. 10/16: Remains sedated, orally intubated on mechanical ventilation. Ventriculostomy in place. Underwent angiogram with injection of verapamil intra -arterial for minimal vasospasm on 10/15 10/17: Remains sedated, orally intubated on mechanical ventilation. Ventriculostomy drained 65 cc over 8 hours overnight. 10/18: off sedation. withdraws to pain. does not follow commands. per nursing, this is an exam change and he was previously following commands. 10/19: continues off sedation. ICP stable around 5. neuro exam stable. TCDs yesterday with questionable early spasm, but given stable neuro exam, decided to repeat TCD today to eval trend. 10/20: off sedation. taken yesterday for angio with IA verapamil for left MCA, SRI spasm. 10/21: spiked fever yesterday, white cultured. empirically started on broad spectrum abx. CSF sent for culture. initial CSF appeared cloudy but cell count and gram stain reassuring. TCDs yesterday without evidence of vasospasm. this AM sodium dropped from 147 to 139 with net -1L. likely early salt wasting, although up to this point urine studies have not shown concern for this up to now. 10/22: uop increased and sodium continues to downtrend despite salt tabs and ivf. still net -1L. urine studies concerning for salt wasting. sputum with enterobacter. neuro exam still stable. TCDs today without overt evidence of spasm. 10/23: still salt wasting. net -500cc/24h. aggressively replacing volume loss and sodium. TCDs today without any evidence of spasm and PI/LI now down to normal ranges. talked with Dr. Prater and while we have a window without spasm, will proceed with tracheostomy today. Likely PEG tube tomorrow. stable neurologic exam. 10/24: Na today 149, 3% at 10 ml per hour. s/p PEG today and still under heavy sedation. Was following commands to RN prior to receiving propofol for sedation. Trach done yesterday. -[id number] UO , getting IVF replacement Objective Vital Signs Date Time Temp Pulse Resp B/P Pulse Ox O2 Delivery O2 Flow Rate FiO2 10/24/16 14:23 100 35 10/24/16 12:00 99.0 96 18 180/87 10/24/16 07:00 Mechanical Ventilator Intake and Output 10/23/16 10/23/16 10/24/16 08:00 16:00 00:00 Intake Total 4897 ml 5415 ml 4906 ml Output Total 4300 ml 5600 ml 6180 ml Balance 597 ml -185 ml -1274 ml Result Diagram: 10/24/16 0445 10/24/16 1230 Imaging Last 24 hours Impressions Transcranial Doppler Study Complete 10/23/16 0700 Signed Impressions: Service Date/Time: Sunday, October 23, 2016 07:36 - CONCLUSION: Normal Lindegaard and Gregorio ratios, spasm is not suspected. Tim Garcia MD Objective Remarks GENERAL: middle-aged male lying in bed, s/p trach SKIN: Dry HEAD: Normocephalic. EYES: Pupils are 2 mm and reactive bilaterally. NECK: Supple, trachea midline. CARDIOVASCULAR: Regular rate and rhythm. No JVD. RESPIRATORY: Orally intubated on mechanical ventilation, Breath sounds equal bilaterally. Clear, no wheezes or crackles. Good soha excursions. GASTROINTESTINAL: Abdomen soft, non-tender, nondistended. BS active. No guarding. EXTREMITIES: Nonfocal clubbing cyanosis or edema, well perfused. NEURO: does not open eyes. purposeful LUE, withdraws RUE. withdraw bilateral lower extremity. does not follow commands to me (received propofol) Apparently followed for the RN A/P Problem List: (1) 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 ICD Code: I60.8 Status: Acute (2) Intracranial hemorrhage ICD Code: I62.9 Status: Acute (3) Hypertension ICD Code: I10 Status: Acute Assessment and Plan Assessment: 51yM with aneurysmal SAH, post-bleed day 19, s/p basilar artery coiling 10/05. S/p IA Verapamil 10/15 and 10/19 for cerebral vasospasm. There is some improvement in severe encephalopathy, acute hypoxic respiratory failure. Resolving sepsis. off pathway. critically ill. Now in cerebral salt wasting and difficulty in maintaining euvolemia despite aggressive ivf and sodium load. Continue salt tabs, 3%, florinef, and increased NS mivf. strict I/Os. daily TCDs. while we have a window without evidence of spasm , s/p Trach 10/23 and PEG . Also continues to grow enterobacter in the sputum, but now developing resistance. Will narrow abx therapy and set full course of abx. Plan: Neuro: Acute encephalopathy Basilar Aneurysm Aneurysmal Subarachnoid Hemorrhage Aneurysmal Subarachnoid bleed 10/05 Cerebral Vasospasm - Núñez Veliz 5 Lucas grade 3 - Nimodipine. Status post intra-arterial verapamil for vasospasm on 10/15, 10/19 - Pravachol - liberalize SBP 160 - 180 given recent cerebral vasospasm. - Daily TCD's - Basilar tip coiled. - s/p angio with IA verapamil 10/15, 10/19 - goal euvolemia Respiratory: Acute Hypoxic and Hypercarbic Respiratory Failure - Intubated for airway protection - No weaning until neurologically improved and stable, not with high concern for cerebral vasospasm. - trach 10/23 given window in vasospasm. - DuoNeb's as needed for wheezing CV: Inadequate Cerebral Perfusion Septic Shock- resolving. - goal SBP 160- 180 given recent cerebral vasospasm. - levophed for target blood pressure for cerebral perfusion. Renal: Cerebral Salt Wasting - goal euvolemia - guzman for accurate I/Os - strict I/Os - nacl tabs 3gm q8h - florinef 0.2mg q12h - NS @ 200cc/hr-reduce to 1503 - strict I/Os q1h - urine studies 10/21 consistent with cerebral salt wasting: patient intravascularly hypovolemic on clinical exam - q6h sodium. - NaCl boluses as needed to maintain euvolemia. FEN/GI: Acute Protein Calorie Malnutrition- mild -- vital high protein 40mL/hr. -- daily BMP -- ICU electrolyte protocol. Heme/ID: Fever Leukocytosis prior UTI- s/p full course abx -- 10/20 sputum culture- enterobacter, some reistance. sensitive to Cefepime. -- 10/20 urine culture- NGTD -- 10/20 CSF: 0 wbc, glu 111, prot 27.8, culture NGTD -- 10/20 Blood cx: NGTD -- 10/21 CSF: NGTD. -- Dr. Mace d/c EVD 10/21 -- d/cd vancomycin and flagyl. -- Continue cefepime 2gm iv q8hr for total 10 day course given early resistance of bacteria. anticipated stop date 10/29 Endocrine: Hyperglycemia of critical illness -- SSI Prophylaxis: - Teds SCDs - started Lovenox per nsgy. - Protonix IV Dispo: remain in the ICU. he remains critically ill. Critical Care time exclusive of separately billable procedures: 40 min. Problem Qualifiers (1) Hypertension: Qualified Code: I10 - Essential hypertension James Dumont MD Oct 24, 2016 15:13 James Dumont MD Oct 24, 2016 15:13
[2016-10-24] MEDS ORDERED: POTASSIUM CHLOR 40 MEQ PREMIX 100 ML IV PRN (15:15)
[2016-10-24] MEDS ORDERED: POTASSIUM CHLOR 20 MEQ PREMIX 100 ML IV PRN (15:15)
[2016-10-24] MEDS ORDERED: POTASSIUM PHOSPHATE MONOBASIC 500 MG TAB PO PRN (15:15)
[2016-10-24] MEDS ORDERED: SODIUM PHOSPHATE INJ 30 MMOL in SODIUM CHLOR 0.9% 250 ML INJ 240 ML IV PRN (15:15)
[2016-10-24] MEDS ORDERED: MAGNESIUM SULFATE INJ 2 GM in SODIUM CHLORIDE 0.9% INJ 96 ML IV PRN (15:15)
[2016-10-24] MEDS ORDERED: POTASSIUM CHLORIDE 25 MEQ EFFERVESCENT TAB PO PRN (15:15)
[2016-10-24] MEDS ORDERED: POTASSIUM PHOSPHATE INJ 30 MMOL in SODIUM CHLOR 0.9% 250 ML INJ 250 ML IV PRN (15:15)
[2016-10-24] MEDS ORDERED: POTASSIUM PHOSPHATE MONOBASIC 500 MG TAB PO/TUBE PRN (15:15)
[2016-10-24] MEDS ORDERED: MAGNESIUM OXIDE 400 MG TAB PO PRN (15:15)
[2016-10-24] MEDS ORDERED: MAGNESIUM SULFATE INJ 4 GM in SODIUM CHLORIDE 0.9% INJ 92 ML IV PRN (15:15)
[2016-10-24 19:31] LABS: PHOSPHORUS 2.4 MG/DL (2.5-4.9)
[2016-10-24] MEDS: ENOXAPARIN SODIUM 40 MG/0.4 ML SYRINGE SQ SCH (19:56)
[2016-10-24] MEDS: LABETALOL HCL 100 MG/20 ML VIAL IV PUSH PRN (21:41)
[2016-10-25] VITALS (21 sets, daily range): BP systolic 166–193; BP diastolic 79–97; PULSE 65–180; RESP 14–22; TEMP 98.8–100; O2SAT 97–100
[2016-10-25] MEDS: niMODipine 30 MG CAP PO SCH ×12 (00:40→23:00)
[2016-10-25] MEDS: DOCUSATE SODIUM 100 MG CAP G-TUBE SCH ×2 (02:51→15:32)
[2016-10-25] MEDS: SODIUM CHLORIDE 1 GRAM TAB PO SCH ×3 (02:52→21:45)
[2016-10-25] MEDS: CHLORHEXIDINE GLUCONATE 2 % 1 PACK (2 CLOTHS) TOP SCH (04:00)
[2016-10-25 04:22] LABS: HEMATOCRIT 25.8 % (39.0-51.0); HEMOGLOBIN 8.7 GM/DL (13.0-17.0); MEAN CORPUSCULAR HEMOGLOBIN 30.2 PG (27.0-34.0); MEAN CORPUSCULAR HGB CONC 33.9 % (32.0-36.0); MEAN PLATELET VOLUME 9.3 FL (7.0-11.0); PLATELET COUNT 238 TH/MM3 (150-450); RED CELL DISTRIBUTION WIDTH 13.2 % (11.6-17.2); WHITE BLOOD COUNT 10.7 TH/MM3 (4.0-11.0)
[2016-10-25 04:50] LABS: BICARBONATE 25.5 MEQ/L (21.0-32.0); CALCIUM 7.7 MG/DL (8.5-10.1); CREATININE 0.68 MG/DL (0.60-1.30); PHOSPHORUS 3.3 MG/DL (2.5-4.9)
[2016-10-25] MEDS: CEFEPIME INJ 2,000 MG in SODIUM CHLORIDE 0.9% INJ 100 ML IV SCH ×3 (05:02→21:14)
[2016-10-25] MEDS: SODIUM CHLOR 0.9% 1000 ML INJ 1,000 ML IV SCH ×3 (05:03→18:44)
[2016-10-25] MEDS: POTASSIUM CHLOR 20 MEQ PREMIX 100 ML IV PRN (05:03)
[2016-10-25] MEDS: INSULIN NovoLIN REGULAR SUPPLEMENTAL SCALE SQ SCH ×4 (05:03→23:30)
[2016-10-25] MEDS: levETIRAcetam INJ 500 MG in SODIUM CHLORIDE 0.9% INJ 100 ML IV SCH ×2 (08:43→21:21)
[2016-10-25] MEDS: PANTOPRAZOLE SODIUM 40 MG VIAL IV SCH (08:43)
[2016-10-25] MEDS: ARTIFICIAL TEARS OPTH SOLN 15 ML BTL EACH EYE SCH ×3 (08:44→17:38)
[2016-10-25] MEDS: SODIUM CHLORIDE 0.9% FLUSH 10 ML FLUSH IV FLUSH SCH (08:44)
--- NOTE | 2016-10-25 08:48 | HHI.NSPN ---
(Meir Sánchez IMMERSION METALCLEANER) Note Status Status: Progress Note (Meir Sánchez) Interval History Interval History 51 year old male presents with being brought in as a trauma alert due to a head injury with altered mental status and a diminished GCS. The patient was in the bathroom and fell and hit his head. This was an unwitnessed fall. According to the patient's the patient had been unresponsive for approximately 15 minutes by the time ambulance services arrived. When they arrived the patient was noted to be a GCS of 14, however his mentation would wax and wane and go down as low as 3 again. On arrival to the emergency department he felt extremely nauseated. The CT of the head revealed diffuse subarachnoid bleed. Emergently intubated in the trauma bay. Possible seizure activity. Intubated in the emergency room. 10/05/16: Endovascular coiling 10/07/16 rinse intubated and sedated. Ventriculostomy in place 10/09/16: Remains intubated and sedated. Increased agitation with attempts at sedation vacation 10/17/16: Pupils 2 mm. Intubated and sedated. Somewhat more responsive with decreased sedation. External ventricular drain and closed to reservoir again today. 10/19/16: TCD with vasospasm, to angio with 10 mg Verapamil IA given. 10/20/16: Patient with fevers up to 102.8 per Nursing and cultures sent, Nursing reports CSF milky & with sediment. TCD being repeated this afternoon due to vast difference from that done this morning and yesterday. Production Honing Machine Operator increased SBP parameters to 180-200 mm Hg to help overcome vasospasms. No increase in ICP. 10/21/16: Still with elevated temp but not as high. TCD yesterday demonstrated resolution of vasospasms but today it demonstrated a right SRI vasospasm. Patient with facial grimacing and attempted eye opening. CSF specimen sent yesterday w/o any organisms or WBCs seen on Gram stain. 10/23/16: Trach done 10/24/16: PEG done at bedside prior to being seen. Nursing reports prior to sedation he was following commands to all extremities although right was weaker. Mild vasospasm per TCD. 10/25/16: No evident distress. Noted to move BLE & slight LUE spontaneously. Did open eyes partially after having been stimulated. TCD being done. (Meir Sánchez) Labs, Micro, & Vital Signs Results Allergies Coded Allergies Type Severity Reaction Last Updated Verified Penicillin Allergy Unknown 10/06/16 Yes Sulfa Allergy Unknown 10/06/16 Yes Recent Impressions Transcranial Doppler Study Complete 10/24/16 07 Signed Impressions: Service Date/Time: Monday, October 24, 2016 07:48 - CONCLUSION: 1. Slightly elevated Lindegard ratio on the right characteristic of mild vasospasm. 2. Lindegard and Gregorio ratios are otherwise negative. Gume Mckeon MD Transcranial Doppler Study Complete 10/23/16 0700 Signed Impressions: Service Date/Time: Sunday, October 23, 2016 07:36 - CONCLUSION: Normal Lindegaard and Gregorio ratios, spasm is not suspected. Tim Garcia MD Chest X-Ray 10/23/16 0000 Signed Impressions: Service Date/Time: Sunday, October 23, 2016 11:18 - CONCLUSION: Mild cardiomegaly. The lungs are clear. Tim Garcia MD //// 06:00 18:00 06:00 18:00 06:00 18:00 Intake Total 8369 ml 6631 ml 7610 ml 2982 ml 4368 ml 1732 ml Output Total 7475 ml 7200 ml 8560 ml 4805 ml 5825 ml 2080 ml Balance 894 ml -569 ml -950 ml -1823 ml -1457 ml -348 ml IV Total 6441 ml 6104 ml 6236 ml 2852 ml 4018 ml 1602 ml Tube Feeding 1008 ml 167 ml 594 ml Other 920 ml 360 ml 780 ml 130 ml 350 ml 130 ml Output Urine Total 7475 ml 7200 ml 8560 ml 4805 ml 5825 ml 2080 ml # Bowel Movements 0 2 1 1 1 Laboratory Tests Test 10/22/16 10/22/16 10/23/16 10/23/16 12:03 19:30 00:18 04:40 Sodium Level 136 MEQ/L 135 MEQ/L 138 MEQ/L 137 MEQ/L White Blood Count 9.7 TH/MM3 Red Blood Count 2.66 MIL/MM3 Hemoglobin 8.0 GM/DL Hematocrit 23.8 % Mean Corpuscular Volume 89.6 FL Mean Corpuscular Hemoglobin 30.1 PG Mean Corpuscular Hemoglobin 33.6 % Concent Red Cell Distribution Width 12.9 % Platelet Count 165 TH/MM3 Mean Platelet Volume 9.7 FL Potassium Level 3.2 MEQ/L Chloride Level 105 MEQ/L Carbon Dioxide Level 22.3 MEQ/L Anion Gap 10 MEQ/L Blood Urea Nitrogen 20 MG/DL Creatinine 0.62 MG/DL Estimat Glomerular Filtration 137 ML/MIN Rate Random Glucose 172 MG/DL Calcium Level 7.6 MG/DL Test 10/23/16 10/23/16 10/23/16 10/24/16 12:00 18:00 23:58 04:45 Sodium Level 137 MEQ/L 154 MEQ/L 148 MEQ/L 148 MEQ/L Potassium Level 3.7 MEQ/L 3.3 MEQ/L White Blood Count 11.0 TH/MM3 Red Blood Count 2.93 MIL/MM3 Hemoglobin 9.0 GM/DL Hematocrit 26.0 % Mean Corpuscular Volume 89.0 FL Mean Corpuscular Hemoglobin 30.6 PG Mean Corpuscular Hemoglobin 34.4 % Concent Red Cell Distribution Width 13.4 % Platelet Count 234 TH/MM3 Mean Platelet Volume 9.5 FL Chloride Level 116 MEQ/L Carbon Dioxide Level 25.7 MEQ/L Anion Gap 6 MEQ/L Blood Urea Nitrogen 18 MG/DL Creatinine 0.74 MG/DL Estimat Glomerular Filtration 112 ML/MIN Rate Random Glucose 119 MG/DL Calcium Level 8.0 MG/DL Test 10/24/16 10/24/16 10/25/16 10/25/16 12:30 18:50 00:15 04:05 Sodium Level 149 MEQ/L 147 MEQ/L 146 MEQ/L 145 MEQ/L Phosphorus Level 2.4 MG/DL 3.3 MG/DL White Blood Count 10.7 TH/MM3 Red Blood Count 2.90 MIL/MM3 Hemoglobin 8.7 GM/DL Hematocrit 25.8 % Mean Corpuscular Volume 89.0 FL Mean Corpuscular Hemoglobin 30.2 PG Mean Corpuscular Hemoglobin 33.9 % Concent Red Cell Distribution Width 13.2 % Platelet Count 238 TH/MM3 Mean Platelet Volume 9.3 FL Potassium Level 3.5 MEQ/L Chloride Level 112 MEQ/L Carbon Dioxide Level 25.5 MEQ/L Anion Gap 8 MEQ/L Blood Urea Nitrogen 15 MG/DL Creatinine 0.68 MG/DL Estimat Glomerular Filtration 123 ML/MIN Rate Random Glucose 119 MG/DL Calcium Level 7.7 MG/DL Constitutional Vital Signs Date Time Temp Pulse Resp B/P Pulse Ox O2 Delivery O2 Flow Rate FiO2 10/25/16 07:57 100 35 10/25/16 06:00 98 10/25/16 04:27 99 35 10/25/16 04:00 66 10/25/16 04:00 98.9 66 16 171/79 99 10/25/16 04:00 35 10/25/16 02:00 73 10/25/16 00:02 99 35 10/25/16 00:00 71 10/25/16 00:00 35 10/25/16 00:00 99.0 71 17 174/79 100 10/24/16 22:00 78 10/24/16 20:00 99.7 92 19 194/93 100 10/24/16 20:00 95 10/24/16 20:00 35 10/24/16 19:52 99 35 10/24/16 19:00 98 Mechanical Ventilator 35 10/24/16 18:00 82 10/24/16 16:06 99 35 10/24/16 16:00 35 10/24/16 16:00 99.0 92 21 183/82 100 10/24/16 16:00 92 10/24/16 14:23 100 35 10/24/16 14:23 35 10/24/16 14:15 35 10/24/16 14:00 88 10/24/16 12:00 99.0 96 18 180/87 97 10/24/16 12:00 96 10/24/16 12:00 35 10/24/16 10:56 98 35 10/24/16 10:00 87 10/25/16 07:00 Intake Total 8838 ml Output Total 85052 ml Balance -3622 ml (Meir Sánchez) Review of Systems/Exam ROS Unable to obtain ROS due to mental status & being intubated. Exam Resp: Respirations CTAB w/o W/R/R, equal excursion, non-laboured, trached & mechanically ventilated. CV: RRR w/o M/G/R but slightly fast, monitor is sinus tachycardia w/o any ectopy noted GI: Abdomen distended, bowel sounds all quads, PEG tube LUQ clamped this morning. : Paul cath to BSD. Neuro: Partial eye opening after noxious stimuli, PERRLA 4 mm bilaterally. Did not initially follow commands, withdrew to noxious stimuli applied to toes, later noted to move BLE spontaneously, slight spontaneous movement left hand with weak hand grasp to command but none on right.Ventriculostomy incision site dry w/o any evident drainage, erythema or streaking. (Meir Sánchez) Medications Current Medications Current Medications Medications (Trade) Dose Ordered Sig/Nava Route Start Time Stop Time Status Last Admin (Tylenol) 650 mg Q6H PRN PO 10/05/16 02:45 10/22/16 22:15 (Protonix Inj) 40 mg DAILY IV 10/05/16 09:00 10/24/16 10:30 (Tears Naturale Opth Soln) 1 drop TID EACH EYE 10/05/16 09:00 10/24/16 17:12 (Zofran Inj) 4 mg Q6H PRN IV 10/05/16 02:45 (Colace) 100 mg Q12H G-TUBE 10/05/16 04:00 10/23/16 03:17 Miscellaneous Information 1 Q361D XX 10/05/16 02:45 10/05/16 02:45 (Chlorhexidine 2% Cloth) 3 pack Taper DAILY@04 TOP 10/05/16 04:00 10/01/17 03:59 10/25/16 04:00 Chlorhexidine Gluconate 3 pack 3 pack UNSCH PRN TOP 10/05/16 02:45 Levetriacetam 500 mg/Sodium Chloride 105 ml @ 420 mls/hr Q12HR IV 10/05/16 09:00 10/24/16 19:56 (Cardene Inj/NS 250 ml Inj) 260 ml @ 0 mls/hr TITRATE IV 10/05/16 02:45 10/18/16 11:23 (Trandate Inj) 10 mg Q4H PRN IV PUSH 10/05/16 02:45 10/24/16 21:41 (Pravachol) 40 mg DAILY PO 10/05/16 09:00 10/23/16 08:13 (NS Flush) See Protocol DAILY IV FLUSH 10/07/16 09:00 10/24/16 10:31 (NS Flush) See Protocol UNSCH PRN IV FLUSH 10/06/16 12:00 Sodium Chloride UNSCH PRN IV FLUSH 10/06/16 12:00 (Levophed Inj/NS 250 ml Inj) 254 ml @ 0 mls/hr TITRATE IV 10/06/16 18:00 10/24/16 22:49 (Miralax) 17 gm DAILY PO 10/10/16 14:00 10/23/16 08:13 Lactulose 30 ml 30 ml DAILY PO 10/10/16 14:00 10/22/16 09:12 Potassium Chloride 100 ml @ 50 mls/hr Q2H PRN IV 10/14/16 16:00 10/23/16 08:03 (KCl 20 Meq Premix Inj) 100 ml @ 50 mls/hr Q2H PRN IV 10/14/16 16:00 10/15/16 17:29 Potassium Bicarb/ Potassium Chloride 50 meq 50 meq UNSCH PRN PO 10/14/16 16:00 10/20/16 07:04 Potassium Chloride 100 ml @ 25 mls/hr UNSCH PRN IV 10/14/16 16:00 10/18/16 06:50 Potassium Chloride 100 ml @ 50 mls/hr Q2H PRN IV 10/14/16 16:00 10/25/16 05:03 (Magnesium Sulfate Inj/NS Inj) 100 ml @ 50 mls/hr UNSCH PRN IV 10/14/16 16:00 Magnesium Oxide 800 mg 800 mg UNSCH PRN PO 10/14/16 16:00 (Magnesium Sulfate Inj/NS Inj) 100 ml @ 50 mls/hr UNSCH PRN IV 10/14/16 16:00 Potassium Phosphate 2000 mg 2,000 mg Q4H PRN PO 10/14/16 16:00 10/17/16 02:00 (Sodium Phosphate Inj/NS 250 ml Inj) 250 ml @ 42 mls/hr UNSCH PRN IV 10/14/16 16:00 10/24/16 20:31 Potassium Phosphate 2000 mg 2,000 mg UNSCH PRN PO/TUBE 10/14/16 16:00 10/18/16 06:51 (Potassium Phosphate Inj/NS 250 ml Inj) 260 ml @ 42 mls/hr UNSCH PRN IV 10/14/16 16:00 (Nimotop) 30 mg Q2H PO 10/17/16 11:00 10/25/16 06:16 (Cathflo Activase Inj) 2 mg UNSCH PRN IV FLUSH 10/19/16 16:15 10/19/16 18:43 Diphenhydramine HCl 6.25 mg 6.25 mg Q4H PRN IV PUSH 10/19/16 19:15 10/20/16 07:03 (Maxipime Inj/NS Inj) 100 ml @ 200 mls/hr Q8H IV 10/20/16 13:00 10/29/16 23:59 10/25/16 05:02 (D50w (Vial) Inj) 25 ml UNSCH PRN IV PUSH 10/20/16 17:15 Insulin Human Regular 1 1 Q6HR SQ 10/20/16 18:00 10/23/16 05:39 (NS 1000 ml Inj) 1,000 ml @ 150 mls/hr Q6H40M IV 10/21/16 08:30 10/25/16 05:03 (Sodium Chloride) 3 gm Q8HR PO 10/22/16 14:00 10/24/16 05:12 Fludrocortisone Acetate 0.2 mg 0.2 mg Q12HR PO 10/22/16 21:00 10/23/16 20:51 (Diprivan 1000 Mg/100ml Inj) 100 ml @ 0 mls/hr TITRATE IV 10/23/16 10:30 Enoxaparin Sodium 40 mg 40 mg Q24H SQ 10/23/16 21:00 10/24/16 19:56 Sodium Chloride 500 ml @ 10 mls/hr CONTINUOUS IV 10/23/16 20:00 10/24/16 10:32 Potassium Chloride 100 ml @ 50 mls/hr Q2H PRN IV 10/24/16 15:15 (KCl 20 Meq Premix Inj) 100 ml @ 50 mls/hr Q2H PRN IV 10/24/16 15:15 Potassium Bicarb/ Potassium Chloride 50 meq 50 meq UNSCH PRN PO 10/24/16 15:15 Potassium Chloride 100 ml @ 25 mls/hr UNSCH PRN IV 10/24/16 15:15 Potassium Chloride 100 ml @ 50 mls/hr Q2H PRN IV 10/24/16 15:15 (Magnesium Sulfate Inj/NS Inj) 100 ml @ 50 mls/hr UNSCH PRN IV 10/24/16 15:15 Magnesium Oxide 800 mg 800 mg UNSCH PRN PO 10/24/16 15:15 (Magnesium Sulfate Inj/NS Inj) 100 ml @ 50 mls/hr UNSCH PRN IV 10/24/16 15:15 Potassium Phosphate 2000 mg 2,000 mg Q4H PRN PO 10/24/16 15:15 (Sodium Phosphate Inj/NS 250 ml Inj) 250 ml @ 42 mls/hr UNSCH PRN IV 10/24/16 15:15 Potassium Phosphate 2000 mg 2,000 mg UNSCH PRN PO/TUBE 10/24/16 15:15 (Potassium Phosphate Inj/NS 250 ml Inj) 260 ml @ 42 mls/hr UNSCH PRN IV 10/24/16 15:15 (Meir Sánchez) Medical Decision Making MDM Remarks 1. Neurologic function improving slowly 2. 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 Evolving primarily left basal ganglia region CVA primarily per CT 4. CSF w/o any growth 5. Mild vasospasm per TCD yesterday (Meir Sánchez) Plan Plan Remarks Will d/c Nimotop in AM Change activity to OOB to cardiac chair Replace sodium per Surgical Production Honing Machine Operator Continue abx per Surgical Production Honing Machine Operator Continue SBP 160-180 mm Hg per Surgical Production Honing Machine Operator Continue Keppra for probable seizure activity Okay for Lovenox from NSGY standpoint Ulcer prophylaxis (Meir Sánchez) Attending Statement I have personally seen and examined the patient on the date of this note. Pertinent documentation and study results have been reviewed by the undersigned. I have personally developed the treatment plan and performed medical decision making. Agree with findings, exam, and treatment plan as noted above. Discontinue nimodipine 10/26/16 Mental status slowly improving (Gino Mace MD) Meir Sánchez Oct 25, 2016 08:48 Gino Mace MD Oct 26, 2016 00:18
[2016-10-25] MEDS: POLYETHYLENE GLYCOL 17 GM PKG PO SCH (09:00)
[2016-10-25] MEDS: LACTULOSE SYRUP 20 GM/30 ML CUP PO SCH (09:00)
--- NOTE | 2016-10-25 09:56 | MP ---
cc: DANNY PRATER MD DATE OF SURGERY 10/23/2016 PREOPERATIVE DIAGNOSIS Acute respiratory failure, need for tracheostomy POSTOPERATIVE DIAGNOSIS Acute respiratory failure, need for tracheostomy PROCEDURE PERFORMED Bedside percutaneous tracheostomy under direct bronchoscopic visualization. DENTAL HYGIENE ADMINISTRATIVE ASSISTANT Dr. Ignacio Mccullough SURGEON Dr. Danny Prater FINDINGS Good end-tidal COMPLICATIONS None SPECIMENS None WOUND CLASSIFICATION Clean INDICATION This is a 61 year-old male who presented with a hypertensive intracranial hemorrhage. He underwent IR coiling, prolonged ventilator dependence, acute respiratory failure in need of tracheostomy. PROCEDURE IN DETAIL The patient was in the ICU. He was prepped and draped in the usual sterile fashion. After administer of adequate sedation including propofol 150, Nimbex 20 and Fentanyl 100, a brief time-out done stating correct patient, procedure surgical site, and all were in agreement with this. Attention directed to the midline trachea. Sternal notch identified. Local anesthetic injected. A small vertical incision made above the sternal notch. Further dissection with a hemostat. This was done at the trachea. Trachea palpated and identified. A cannula introducer needle over an Angiocath was obtained. The ET tube was retracted back by respiratory and Dr. Mccullough had bronchoscope to the ET tube for directed visualization. The trachea was penetrated with the needle Angiocath and the needle removed. The catheter remained in place. A percutaneous wire was advanced under direct visualization. The Angiocath was then removed. The punch dilator was used three returns for dilation of the trachea followed by a 28 blue rhino dilator done three times. The blue rhino was removed. A #8 cuffed tracheostomy was used and threaded over the wire into the trachea. End-tidal was hooked up with good purple to gold changing confirming entitle CO2, good placement. Bronchoscope evaluated and confirmed good placement as well and suctioned of any loose drainage. The trache balloon was inflated and it was secured with a Prolene suture in four places and then secured with a neck tied. The patient tolerated the procedure well. There were no operative complications. The patient remains on vent via trache now. Also note, prior to the procedure FIO2 was titrated up to 100%. The patient's saturation was at 100%. MD OC Pastrana/KUNAL /10:06 PM /9:44 AM
[2016-10-25] MEDS: PRAVASTATIN SOD 40 MG TAB PO SCH (10:19)
[2016-10-25] MEDS: FLUDROCORTISONE ACETATE 0.1 MG TAB PO SCH ×2 (10:19→21:21)
--- NOTE | 2016-10-25 10:40 | RADRPT ---
EXAM DATE/TIME: 10/25/2016 08:10 [facility] COMPARISON: US TRANSCRANIAL DOPPLER COMPLETE, October 24, 2016, 7:48. INDICATIONS : Subarachnoid hemorrhage. MEDICAL HISTORY : Hypertension. Pancreatitis. TIA. Subarachnoid hemorrhage. SURGICAL HISTORY : Ventriculostomy clamp. Ventriculostomy drain. ENCOUNTER: Sequela ACUITY: 3 weeks PAIN SCORE: Nonresponsive. LOCATION: Bilateral cranial Current Exam: Oct 25, 2016 Lindegaard Ratio: Right: 2.1 Left: 1.5 Gregorio Ratio: Right: 2.8 Left: 1.3 Previous Exam: Oct 24, 2016 Lindegaard Ratio: Right: 3.0 Left: 2.3 Gregorio Ratio: Right: 2.4 Left: 1.1 FINDINGS: Examination performed at bedside. Real-time ultrasound with the assistance of color and spectral Dop pler was utilized to evaluate the intracerebral circulation. Time-averaged maximal velocities are ca lculated in cm/s. CONCLUSION: 1. There is normalization of the ratios when compare with the prior study. There are no findings of v asospasm Trevin De León MD on October 25, 2016 at 10:32 Board Certified Radiologist. This report was verified electronically.
--- NOTE | 2016-10-25 11:28 | HHI.CCPN ---
Subjective Remarks/Hospital Course 51 year old male presents with being brought in as a trauma alert due to a head injury with altered mental status and a diminished GCS. The patient was in the bathroom and fell and hit his head. This was an unwitnessed fall. According to the patient's the patient had been unresponsive for approximately 15 minutes by the time ambulance services arrived. When they arrived the patient was noted to be a GCS of 14, however his mentation would wax and wane and go down as low as 3 again. On arrival to the emergency department he felt extremely nauseated. The CT of the head revealed diffuse subarachnoid bleed. 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 CT head today with some ventricular blood. ICP controlled and patient tolerates lightening of sedation. Volume loaded to maintain SBP > 130s. Opens eyes to voice. 10/07: BP controlled. TCDs to be done today. 10/08: BP control good. Well hydrated. No TCD evidence of spasm. 10/09: TCD today pending. CPP good. No seizure activity. Remains well hydrated. 10/10: TCDs no vasospasm. Remains well hydrated, well perfused. Some peripheral edema as expected. 10/11: Hemodynamics good. Bladder spasm continues. Try Flomax - an alpha kendall , will not impair cerebral vessels. 10/12: Episode of sepsis last night from obstructed Guzman, JONH evident. Much improved now. 10/13: JONH improving. Narrow abx to GNR. 10/14: Aztreonam started for sputum, urine. CT Head acceptable. 10/15: No change in neuro status. BP control good. 10/16: Remains sedated, orally intubated on mechanical ventilation. Ventriculostomy in place. Underwent angiogram with injection of verapamil intra -arterial for minimal vasospasm on 10/15 10/17: Remains sedated, orally intubated on mechanical ventilation. Ventriculostomy drained 65 cc over 8 hours overnight. 10/18: off sedation. withdraws to pain. does not follow commands. per nursing, this is an exam change and he was previously following commands. 10/19: continues off sedation. ICP stable around 5. neuro exam stable. TCDs yesterday with questionable early spasm, but given stable neuro exam, decided to repeat TCD today to eval trend. 10/20: off sedation. taken yesterday for angio with IA verapamil for left MCA, SRI spasm. 10/21: spiked fever yesterday, white cultured. empirically started on broad spectrum abx. CSF sent for culture. initial CSF appeared cloudy but cell count and gram stain reassuring. TCDs yesterday without evidence of vasospasm. this AM sodium dropped from 147 to 139 with net -1L. likely early salt wasting, although up to this point urine studies have not shown concern for this up to now. 10/22: uop increased and sodium continues to downtrend despite salt tabs and ivf. still net -1L. urine studies concerning for salt wasting. sputum with enterobacter. neuro exam still stable. TCDs today without overt evidence of spasm. 10/23: still salt wasting. net -500cc/24h. aggressively replacing volume loss and sodium. TCDs today without any evidence of spasm and PI/LI now down to normal ranges. talked with Dr. Prater and while we have a window without spasm, will proceed with tracheostomy today. Likely PEG tube tomorrow. stable neurologic exam. 10/24: Na today 149, 3% at 10 ml per hour. s/p PEG today and still under heavy sedation. Was following commands to RN prior to receiving propofol for sedation. Trach done yesterday. -21989 UO , getting IVF replacement 10/25: continues to have high UO 12L in 24 hours. D/w Dr. Mace -probably antidiuresis. Na 145. Remains on NS at 150 ml per hour and 3% at 10 ml per hour (increased 3% to 20 ml pr hour)/ weekly following commands in all 4 extremities , partial eye opening to command. Remains on Levophed at 8 mcg per min Objective Vital Signs Date Time Temp Pulse Resp B/P Pulse Ox O2 Delivery O2 Flow Rate FiO2 10/25/16 10:00 82 10/25/16 09:53 97 T-piece 35 10/25/16 08:00 98.8 18 172/97 Intake and Output 10/24/16 10/24/16 10/25/16 08:00 16:00 00:00 Intake Total 3733 ml 2111 ml 3520 ml Output Total 3605 ml 3725 ml 5080 ml Balance 128 ml -1614 ml -1560 ml Result Diagram: 10/25/1640410/25/16 040 Imaging Last 24 hours Impressions Transcranial Doppler Study Complete 4/23/17 0700 Signed Impressions: Service Date/Time: Sunday, October 23, 2016 07:36 - CONCLUSION: Normal Lindegaard and Gregorio ratios, spasm is not suspected. Tim Garcia MD Objective Remarks GENERAL: middle-aged male lying in bed, s/p trach SKIN: Dry HEAD: Normocephalic. EYES: Pupils are 2 mm and reactive bilaterally. NECK: Supple, trachea midline. CARDIOVASCULAR: Regular rate and rhythm. No JVD. RESPIRATORY:On TP, Breath sounds equal bilaterally. Clear, no wheezes or crackles. Good soha excursions. GASTROINTESTINAL: Abdomen soft, non-tender, nondistended. BS active. No guarding. EXTREMITIES: Nonfocal clubbing cyanosis or edema, well perfused. NEURO: Partial eye opening to command. Weekly follows commands in all 4 extremities. A/P Problem List: (1) 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 ICD Code: I60.8 Status: Acute (2) Intracranial hemorrhage ICD Code: I62.9 Status: Acute (3) Hypertension ICD Code: I10 Status: Acute Assessment and Plan Assessment: 51yM with aneurysmal SAH, post-bleed day 20, s/p basilar artery coiling 10/05. S/p IA Verapamil 10/15 and 10/19 for cerebral vasospasm. There is some improvement in encephalopathy, acute hypoxic respiratory failure. Resolving sepsis. critically ill. Now in possible cerebral salt wasting. Continue salt tabs, 3% saline, florinef, and increased NS 150 ml per hour. strict I/Os. TCDs per N/S. s/p Trach 10/23 and PEG 10/24. Also continues to grow Enterobacter in the sputum , but now developing resistance. Will narrow abx therapy and set full course of abx. Plan: Neuro: Acute encephalopathy Basilar Aneurysm Aneurysmal Subarachnoid Hemorrhage Aneurysmal Subarachnoid bleed 10/05 Cerebral Vasospasm - Núñez Veliz 5 Lucas grade 3 - Nimodipine. Status post intra-arterial verapamil for vasospasm on 10/15, 10/19 - Pravachol - liberalize SBP 160 - 180 given recent cerebral vasospasm. - TCD's per N/S Dr Mace - Basilar tip coiled. - s/p angio with IA verapamil 10/15, 10/19 - goal euvolemia - Neuro exam improving, weakly following commands all 4 ext Respiratory: Acute Hypoxic and Hypercarbic Respiratory Failure - Intubated for airway protection - s/p trach 10/23 now on TP - DuoNeb's as needed for wheezing CV: Inadequate Cerebral Perfusion Septic Shock- resolving. - goal SBP 160- 180 given recent cerebral vasospasm. - levophed for target blood pressure for cerebral perfusion. Renal: Possible Cerebral Salt Wasting - At this time its unclear whether patient is antidiuresing - Check CMP, uric acid, ser and urine osm and ser osm and urine Na - goal euvolemia - guzman for accurate I/Os - strict I/Os - nacl tabs 3gm q8h - florinef 0.2mg q12h - NS @ 150-cc/hr - strict I/Os q1h - urine studies 10/21 consistent with cerebral salt wasting: st that time was patient intravascularly hypovolemic on clinical exam - q6h sodium. - NaCl boluses as needed to maintain euvolemia. FEN/GI: Acute Protein Calorie Malnutrition- mild -- vital high protein 40mL/hr. -- daily BMP -- ICU electrolyte protocol. Heme/ID: Fever Leukocytosis prior UTI- s/p full course abx -- 10/20 sputum culture- enterobacter, some reistance. sensitive to Cefepime. -- 10/20 urine culture- NGTD -- 10/20 CSF: 0 wbc, glu 111, prot 27.8, culture NGTD -- 10/20 Blood cx: NGTD -- 10/21 CSF: NGTD. -- Dr. Mace d/c EVD 10/21 -- d/cd vancomycin and flagyl. -- Continue cefepime 2gm iv q8hr for total 10 day course given early resistance of bacteria. anticipated stop date 10/29 Endocrine: Hyperglycemia of critical illness -- SSI Prophylaxis: - Teds SCDs - started Lovenox per nsgy. - Protonix IV Dispo: remain in the ICU. he remains critically ill. Critical Care time exclusive of separately billable procedures: 40 min. Problem Qualifiers (1) Hypertension: Qualified Code: I10 - Essential hypertension James Dumont MD Oct 25, 2016 11:28 James Dumont MD Oct 25, 2016 11:28
[2016-10-25 12:04] LABS: SODIUM,RANDOM URINE 119 MEQ/L
[2016-10-25 12:12] LABS: ALBUMIN 2.3 GM/DL (3.4-5.0); AST (GOT) 28 U/L (15-37); BLOOD UREA NITROGEN 16 MG/DL (7-18); CALCIUM 7.8 MG/DL (8.5-10.1); CHLORIDE 112 MEQ/L (98-107); CREATININE 0.71 MG/DL (0.60-1.30); GLOMERULAR FILTRATION RATE 117 ML/MIN (>89); GLUCOSE,RANDOM 127 MG/DL (74-106); MAGNESIUM 2.3 MG/DL (1.5-2.5); SODIUM (NA) 147 MEQ/L (136-145)
[2016-10-25 12:16] LABS: ALKALINE PHOSPHATASE 67 U/L (45-117); ALT (GPT) 67 U/L (12-78); TOTAL BILIRUBIN ADULT 0.5 MG/DL (0.2-1.0); TOTAL PROTEIN 6.6 GM/DL (6.4-8.2)
[2016-10-25 12:25] LABS: OSMOLALITY,URINE 290 MOSM/KG (300-1300)
[2016-10-25] MEDS: NOREPINEPHRINE INJ 4 MG in SODIUM CHLOR 0.9% 250 ML INJ 250 ML IV SCH (12:41)
[2016-10-25] MEDS: ACETAMINOPHEN 325 MG TAB PO PRN (13:35)
--- NOTE | 2016-10-25 14:04 | HHI.PR ---
Subjective Subjective Notes no acute issues, on cpap, tf on hold Objective Vitals/I&O Vital Signs Date Time Temp Pulse Resp B/P Pulse Ox O2 Delivery O2 Flow Rate FiO2 10/25/16 12:00 98 10/25/16 12:00 98.8 22 193/83 98 10/25/16 11:51 T-piece 28 Labs Laboratory Tests Test 10/24/16 10/25/16 10/25/16 10/25/16 18:50 00:15 04:05 11:10 Sodium Level 147 146 145 147 Phosphorus Level 2.4 3.3 White Blood Count 10.7 Red Blood Count 2.90 Hemoglobin 8.7 Hematocrit 25.8 Mean Corpuscular Volume 89.0 Mean Corpuscular Hemoglobin 30.2 Mean Corpuscular Hemoglobin 33.9 Concent Red Cell Distribution Width 13.2 Platelet Count 238 Mean Platelet Volume 9.3 Potassium Level 3.5 3.4 Chloride Level 112 112 Carbon Dioxide Level 25.5 26.0 Anion Gap 8 9 Blood Urea Nitrogen 15 16 Creatinine 0.68 0.71 Estimat Glomerular Filtration 123 117 Rate Random Glucose 119 127 Calcium Level 7.7 7.8 Urine Osmolality 290 Urine Random Sodium 119 Serum Osmolality 303 Uric Acid 2.5 Magnesium Level 2.3 Total Bilirubin 0.5 Aspartate Amino Transf 28 (AST/SGOT) Alanine Aminotransferase 67 (ALT/SGPT) Alkaline Phosphatase 67 Total Protein 6.6 Albumin 2.3 Date/Time Procedure Status Source Growth 10/21/16 09:20 Gram Stain - Final Complete Cerebral Spinal Fluid Shunt Fluid 10/21/16 09:20 CSF Culture - Final Complete Cerebral Spinal Fluid Shunt Fluid NO GROWTH IN 72 HRS.--AEROBICALLY OR ... 10/21/16 09:20 Acid Fast Stain - Final Resulted Cerebral Spinal Fluid Shunt Fluid NO ACID FAST BACILLI SEEN 10/21/16 09:20 Mycobacterial Culture Resulted Cerebral Spinal Fluid Shunt Fluid Pending 10/20/16 15:32 Aerobic Blood Culture - Final Complete Blood Peripheral NO GROWTH IN 5 DAYS 10/20/16 15:32 Anaerobic Blood Culture - Final Complete Blood Peripheral NO GROWTH IN 5 DAYS Cardiovascular: Other (bilateral expansion, coarse) Abdomen: Other (soft mild ttp peg in place c/d/i) A/P Assessment and Plan 51 years old with intracranial hemorrhage, acute respiratory failure, prolonged intubation, needing feeding access PLAN Wean vent as tolerated ok to use peg, trickle TF 12hours then advance as tolerated reconsult as needed Darrin Prater MD Oct 25, 2016 14:03
[2016-10-25] MEDS: ENOXAPARIN SODIUM 40 MG/0.4 ML SYRINGE SQ SCH (21:13)
[2016-10-25] MEDS: 3% SALINE INJ 500 ML IV SCH (21:25)
[2016-10-26] VITALS (18 sets, daily range): BP systolic 150–185; BP diastolic 89–96; PULSE 72–127; RESP 17–30; TEMP 99.3–99.9; O2SAT 98–100
[2016-10-26] MEDS: niMODipine 30 MG CAP PO SCH ×4 (00:49→06:53)
[2016-10-26] MEDS: DOCUSATE SODIUM 100 MG CAP G-TUBE SCH ×2 (02:31→14:07)
[2016-10-26] MEDS: CHLORHEXIDINE GLUCONATE 2 % 1 PACK (2 CLOTHS) TOP SCH (04:00)
[2016-10-26] MEDS: SODIUM CHLORIDE 1 GRAM TAB PO SCH ×3 (04:53→21:50)
[2016-10-26] MEDS: CEFEPIME INJ 2,000 MG in SODIUM CHLORIDE 0.9% INJ 100 ML IV SCH ×3 (04:53→20:18)
[2016-10-26] MEDS: INSULIN NovoLIN REGULAR SUPPLEMENTAL SCALE SQ SCH ×3 (06:00→18:00)
[2016-10-26 06:07] LABS: BASOPHIL # 0.1 TH/MM3 (0-0.2); BASOPHIL % 0.7 % (0.0-2.0); EOSINOPHIL # 0.2 TH/MM3 (0-0.4); EOSINOPHIL % 1.8 % (0.0-4.0); HEMATOCRIT 27.7 % (39.0-51.0); HEMOGLOBIN 9.4 GM/DL (13.0-17.0); LYMPHOCYTE # 1.5 TH/MM3 (1.0-4.8); MEAN CELL VOLUME 89.1 FL (80.0-100.0); MEAN CORPUSCULAR HEMOGLOBIN 30.1 PG (27.0-34.0); MEAN CORPUSCULAR HGB CONC 33.8 % (32.0-36.0); MEAN PLATELET VOLUME 9.1 FL (7.0-11.0); MONO % 8.8 % (0.0-8.0); NEUT % 75.7 % (16.0-70.0); PLATELET COUNT 273 TH/MM3 (150-450); RED BLOOD COUNT 3.11 MIL/MM3 (4.50-5.90); RED CELL DISTRIBUTION WIDTH 13.6 % (11.6-17.2); WHITE BLOOD COUNT 11.8 TH/MM3 (4.0-11.0)
[2016-10-26 06:31] LABS: ALBUMIN 2.3 GM/DL (3.4-5.0); ALKALINE PHOSPHATASE 68 U/L (45-117); ALT (GPT) 60 U/L (12-78); AST (GOT) 27 U/L (15-37); BICARBONATE 25.9 MEQ/L (21.0-32.0); BLOOD UREA NITROGEN 20 MG/DL (7-18); CALCIUM 8.1 MG/DL (8.5-10.1); CHLORIDE 109 MEQ/L (98-107); GLOMERULAR FILTRATION RATE 102 ML/MIN (>89); GLUCOSE,RANDOM 133 MG/DL (74-106); MAGNESIUM 2.1 MG/DL (1.5-2.5); SODIUM (NA) 144 MEQ/L (136-145); TOTAL BILIRUBIN ADULT 0.5 MG/DL (0.2-1.0); TOTAL PROTEIN 6.6 GM/DL (6.4-8.2)
[2016-10-26] MEDS: SODIUM CHLORIDE 0.9% FLUSH 10 ML FLUSH IV FLUSH SCH (08:09)
[2016-10-26] MEDS: PANTOPRAZOLE SODIUM 40 MG VIAL IV SCH (08:09)
[2016-10-26] MEDS: FLUDROCORTISONE ACETATE 0.1 MG TAB PO SCH ×2 (08:09→20:19)
[2016-10-26] MEDS: POLYETHYLENE GLYCOL 17 GM PKG PO SCH (08:09)
[2016-10-26] MEDS: PRAVASTATIN SOD 40 MG TAB PO SCH (08:09)
[2016-10-26] MEDS: LACTULOSE SYRUP 20 GM/30 ML CUP PO SCH (08:09)
[2016-10-26] MEDS: SODIUM CHLOR 0.9% 1000 ML INJ 1,000 ML IV SCH ×2 (08:10→14:07)
[2016-10-26] MEDS: ARTIFICIAL TEARS OPTH SOLN 15 ML BTL EACH EYE SCH ×3 (08:10→18:23)
[2016-10-26] MEDS: levETIRAcetam INJ 500 MG in SODIUM CHLORIDE 0.9% INJ 100 ML IV SCH ×2 (08:10→20:19)
--- NOTE | 2016-10-26 08:47 | HHI.NSPN ---
(Meir Sánchez W[employer] INSTALLER) Note Status Status: Progress Note (Meir Sánchez) Interval History Interval History 51 year old male presents with being brought in as a trauma alert due to a head injury with altered mental status and a diminished GCS. The patient was in the bathroom and fell and hit his head. This was an unwitnessed fall. According to the patient's the patient had been unresponsive for approximately 15 minutes by the time ambulance services arrived. When they arrived the patient was noted to be a GCS of 14, however his mentation would wax and wane and go down as low as 3 again. On arrival to the emergency department he felt extremely nauseated. The CT of the head revealed diffuse subarachnoid bleed. Emergently intubated in the trauma bay. Possible seizure activity. Intubated in the emergency room. 10/05/16: Endovascular coiling 10/07/16 rinse intubated and sedated. Ventriculostomy in place 10/09/16: Remains intubated and sedated. Increased agitation with attempts at sedation vacation 10/17/16: Pupils 2 mm. Intubated and sedated. Somewhat more responsive with decreased sedation. External ventricular drain and closed to reservoir again today. 10/19/16: TCD with vasospasm, to angio with 10 mg Verapamil IA given. 10/20/16: Patient with fevers up to 102.8 per Nursing and cultures sent, Nursing reports CSF milky & with sediment. TCD being repeated this afternoon due to vast difference from that done this morning and yesterday. [employer] increased SBP parameters to 180-200 mm Hg to help overcome vasospasms. No increase in ICP. 10/21/16: Still with elevated temp but not as high. TCD yesterday demonstrated resolution of vasospasms but today it demonstrated a right SRI vasospasm. Patient with facial grimacing and attempted eye opening. CSF specimen sent yesterday w/o any organisms or WBCs seen on Gram stain. 10/23/16: Trach done 10/24/16: PEG done at bedside prior to being seen. Nursing reports prior to sedation he was following commands to all extremities although right was weaker. Mild vasospasm per TCD. 10/25/16: No evident distress. Noted to move BLE & slight LUE spontaneously. Did open eyes partially after having been stimulated. TCD being done. 10/26/16: No evident distress, attempted eye opening to verbal & attempted to follow some commands, some spontaneous movements noted BLE & LUE. TCD being done. (Meir Sánchez) Labs, Micro, & Vital Signs Results Allergies Coded Allergies Type Severity Reaction Last Updated Verified Penicillin Allergy Unknown 10/06/16 Yes Sulfa Allergy Unknown 10/06/16 Yes Recent Impressions Transcranial Doppler Study Complete 10/25/16 07 Signed Impressions: Service Date/Time: Tuesday, October 25, 2016 08:10 - CONCLUSION: 1. There is normalization of the ratios when compare with the prior study. There are no findings of vasospasm Trevin De León MD Transcranial Doppler Study Complete 10/24/16 07 Signed Impressions: Service Date/Time: Monday, October 24, 2016 07:48 - CONCLUSION: 1. Slightly elevated Lindegard ratio on the right characteristic of mild vasospasm. 2. Lindegard and Gregorio ratios are otherwise negative. Gume Mckeon MD //// 06:00 18:00 06:00 18:00 06:00 18:00 Intake Total 7610 ml 2982 ml 4368 ml 3881 ml 2256 ml Output Total 8560 ml 4805 ml 5825 ml 6805 ml 2200 ml Balance -950 ml -1823 ml -1457 ml -2924 ml 56 ml IV Total 6236 ml 2852 ml 4018 ml 3638 ml 2076 ml Tube Feeding 594 ml 113 ml 180 ml Other 780 ml 130 ml 350 ml 130 ml Output Urine Total 8560 ml 4805 ml 5825 ml 6805 ml 2200 ml # Bowel Movements 1 1 1 0 Laboratory Tests Test 10/23/16 10/23/16 10/23/16 10/24/16 12:00 18:00 23:58 04:45 Sodium Level 137 MEQ/L 154 MEQ/L 148 MEQ/L 148 MEQ/L Potassium Level 3.7 MEQ/L 3.3 MEQ/L White Blood Count 11.0 TH/MM3 Red Blood Count 2.93 MIL/MM3 Hemoglobin 9.0 GM/DL Hematocrit 26.0 % Mean Corpuscular Volume 89.0 FL Mean Corpuscular Hemoglobin 30.6 PG Mean Corpuscular Hemoglobin 34.4 % Concent Red Cell Distribution Width 13.4 % Platelet Count 234 TH/MM3 Mean Platelet Volume 9.5 FL Chloride Level 116 MEQ/L Carbon Dioxide Level 25.7 MEQ/L Anion Gap 6 MEQ/L Blood Urea Nitrogen 18 MG/DL Creatinine 0.74 MG/DL Estimat Glomerular Filtration 112 ML/MIN Rate Random Glucose 119 MG/DL Calcium Level 8.0 MG/DL Test 10/24/16 10/24/16 10/25/16 10/25/16 12:30 18:50 00:15 04:05 Sodium Level 149 MEQ/L 147 MEQ/L 146 MEQ/L 145 MEQ/L Phosphorus Level 2.4 MG/DL 3.3 MG/DL White Blood Count 10.7 TH/MM3 Red Blood Count 2.90 MIL/MM3 Hemoglobin 8.7 GM/DL Hematocrit 25.8 % Mean Corpuscular Volume 89.0 FL Mean Corpuscular Hemoglobin 30.2 PG Mean Corpuscular Hemoglobin 33.9 % Concent Red Cell Distribution Width 13.2 % Platelet Count 238 TH/MM3 Mean Platelet Volume 9.3 FL Potassium Level 3.5 MEQ/L Chloride Level 112 MEQ/L Carbon Dioxide Level 25.5 MEQ/L Anion Gap 8 MEQ/L Blood Urea Nitrogen 15 MG/DL Creatinine 0.68 MG/DL Estimat Glomerular Filtration 123 ML/MIN Rate Random Glucose 119 MG/DL Calcium Level 7.7 MG/DL Test 10/25/16 10/25/16 10/26/16 11:10 22:13 05:46 Urine Osmolality 290 MOSM/KG Urine Random Sodium 119 MEQ/L Sodium Level 147 MEQ/L 144 MEQ/L Potassium Level 3.4 MEQ/L 3.5 MEQ/L 3.3 MEQ/L Chloride Level 112 MEQ/L 109 MEQ/L Carbon Dioxide Level 26.0 MEQ/L 25.9 MEQ/L Anion Gap 9 MEQ/L 9 MEQ/L Blood Urea Nitrogen 16 MG/DL 20 MG/DL Creatinine 0.71 MG/DL 0.80 MG/DL Estimat Glomerular Filtration 117 ML/MIN 102 ML/MIN Rate Random Glucose 127 MG/DL 133 MG/DL Serum Osmolality 303 MOSM/KG Uric Acid 2.5 MG/DL Calcium Level 7.8 MG/DL 8.1 MG/DL Magnesium Level 2.3 MG/DL 2.1 MG/DL Total Bilirubin 0.5 MG/DL 0.5 MG/DL Aspartate Amino Transf 28 U/L 27 U/L (AST/SGOT) Alanine Aminotransferase 67 U/L 60 U/L (ALT/SGPT) Alkaline Phosphatase 67 U/L 68 U/L Total Protein 6.6 GM/DL 6.6 GM/DL Albumin 2.3 GM/DL 2.3 GM/DL White Blood Count 11.8 TH/MM3 Red Blood Count 3.11 MIL/MM3 Hemoglobin 9.4 GM/DL Hematocrit 27.7 % Mean Corpuscular Volume 89.1 FL Mean Corpuscular Hemoglobin 30.1 PG Mean Corpuscular Hemoglobin 33.8 % Concent Red Cell Distribution Width 13.6 % Platelet Count 273 TH/MM3 Mean Platelet Volume 9.1 FL Neutrophils (%) (Auto) 75.7 % Lymphocytes (%) (Auto) 13.0 % Monocytes (%) (Auto) 8.8 % Eosinophils (%) (Auto) 1.8 % Basophils (%) (Auto) 0.7 % Neutrophils # (Auto) 9.0 TH/MM3 Lymphocytes # (Auto) 1.5 TH/MM3 Monocytes # (Auto) 1.0 TH/MM3 Eosinophils # (Auto) 0.2 TH/MM3 Basophils # (Auto) 0.1 TH/MM3 CBC Comment DIFF FINAL Differential Comment Constitutional Vital Signs Date Time Temp Pulse Resp B/P Pulse Ox O2 Delivery O2 Flow Rate FiO2 10/26/16 07:41 98 35 10/26/16 06:00 75 10/26/16 04:20 100 35 10/26/16 04:00 35 10/26/16 04:00 99.5 87 22 150/90 100 10/26/16 04:00 72 10/26/16 02:00 80 10/26/16 00:57 99 35 10/26/16 00:00 35 10/26/16 00:00 99.7 97 17 159/89 100 10/26/16 00:00 97 10/25/16 22:34 100 35 10/25/16 22:00 92 10/25/16 20:00 100 Mechanical Ventilator 35 10/25/16 20:00 99.9 102 14 166/87 100 10/25/16 20:00 35 10/25/16 20:00 102 10/25/16 19:22 100 35 10/25/16 18:00 91 10/25/16 16:11 100 35 10/25/16 16:00 100 10/25/16 16:00 35 10/25/16 16:00 100.0 180 17 180/83 100 10/25/16 14:00 103 10/25/16 13:15 99 35 10/25/16 13:15 35 10/25/16 12:00 98 10/25/16 12:00 98.8 98 22 193/83 98 10/25/16 11:51 98 T-piece 28 10/25/16 10:00 82 10/25/16 09:53 97 T-piece 35 10/26/16 07:00 Intake Total 4240 ml Output Total 6625 ml Balance -2385 ml (Meir Sánchez) Review of Systems/Exam ROS Unable to obtain ROS due to mental status & being intubated. Exam Resp: Respirations CTAB w/o W/R/R, equal excursion, non-laboured, trached & mechanically ventilated. CV: RRR w/o M/G/R but slightly fast, monitor is sinus tachycardia w/o any ectopy noted GI: Abdomen distended, bowel sounds all quads, PEG tube LUQ with enteral feeds at 20 mL/hr. : Paul cath to BSD. Neuro: Attempts to open eyes to verbal stimuli, PERRLA 4 mm bilaterally, appear conjugate. Spontaneous movement of BLE & LUE, trace movement to command to squeeze with left hand but not right. Ventriculostomy incision site dry w/o any evident drainage, erythema or streaking. (Meir Sánchez) Medications Current Medications Current Medications Medications (Trade) Dose Ordered Sig/Nava Route Start Time Stop Time Status Last Admin (Tylenol) 650 mg Q6H PRN PO 10/05/16 02:45 10/25/16 13:35 (Protonix Inj) 40 mg DAILY IV 10/05/16 09:00 10/26/16 08:09 (Tears Naturale Opth Soln) 1 drop TID EACH EYE 10/05/16 09:00 10/26/16 08:10 (Zofran Inj) 4 mg Q6H PRN IV 10/05/16 02:45 (Colace) 100 mg Q12H G-TUBE 10/05/16 04:00 10/26/16 02:31 Miscellaneous Information 1 Q361D XX 10/05/16 02:45 10/05/16 02:45 (Chlorhexidine 2% Cloth) 3 pack Taper DAILY@04 TOP 10/05/16 04:00 10/01/17 03:59 10/26/16 04:00 Chlorhexidine Gluconate 3 pack 3 pack UNSCH PRN TOP 10/05/16 02:45 Levetriacetam 500 mg/Sodium Chloride 105 ml @ 420 mls/hr Q12HR IV 10/05/16 09:00 10/26/16 08:10 (Cardene Inj/NS 250 ml Inj) 260 ml @ 0 mls/hr TITRATE IV 10/05/16 02:45 10/18/16 11:23 (Trandate Inj) 10 mg Q4H PRN IV PUSH 10/05/16 02:45 10/24/16 21:41 (Pravachol) 40 mg DAILY PO 10/05/16 09:00 10/26/16 08:09 (NS Flush) See Protocol DAILY IV FLUSH 10/07/16 09:00 10/26/16 08:09 (NS Flush) See Protocol UNSCH PRN IV FLUSH 10/06/16 12:00 Sodium Chloride UNSCH PRN IV FLUSH 10/06/16 12:00 (Levophed Inj/NS 250 ml Inj) 254 ml @ 0 mls/hr TITRATE IV 10/06/16 18:00 10/25/16 12:41 (Miralax) 17 gm DAILY PO 10/10/16 14:00 10/26/16 08:09 Lactulose 30 ml 30 ml DAILY PO 10/10/16 14:00 10/26/16 08:09 Potassium Chloride 100 ml @ 50 mls/hr Q2H PRN IV 10/14/16 16:00 10/23/16 08:03 (KCl 20 Meq Premix Inj) 100 ml @ 50 mls/hr Q2H PRN IV 10/14/16 16:00 10/15/16 17:29 Potassium Bicarb/ Potassium Chloride 50 meq 50 meq UNSCH PRN PO 10/14/16 16:00 10/20/16 07:04 Potassium Chloride 100 ml @ 25 mls/hr UNSCH PRN IV 10/14/16 16:00 10/18/16 06:50 Potassium Chloride 100 ml @ 50 mls/hr Q2H PRN IV 10/14/16 16:00 10/25/16 05:03 (Magnesium Sulfate Inj/NS Inj) 100 ml @ 50 mls/hr UNSCH PRN IV 10/14/16 16:00 Magnesium Oxide 800 mg 800 mg UNSCH PRN PO 10/14/16 16:00 (Magnesium Sulfate Inj/NS Inj) 100 ml @ 50 mls/hr UNSCH PRN IV 10/14/16 16:00 Potassium Phosphate 2000 mg 2,000 mg Q4H PRN PO 10/14/16 16:00 10/17/16 02:00 (Sodium Phosphate Inj/NS 250 ml Inj) 250 ml @ 42 mls/hr UNSCH PRN IV 10/14/16 16:00 10/24/16 20:31 Potassium Phosphate 2000 mg 2,000 mg UNSCH PRN PO/TUBE 10/14/16 16:00 10/18/16 06:51 (Potassium Phosphate Inj/NS 250 ml Inj) 260 ml @ 42 mls/hr UNSCH PRN IV 10/14/16 16:00 (Nimotop) 30 mg Q2H PO 10/17/16 11:00 10/26/16 06:53 (Cathflo Activase Inj) 2 mg UNSCH PRN IV FLUSH 10/19/16 16:15 10/19/16 18:43 Diphenhydramine HCl 6.25 mg 6.25 mg Q4H PRN IV PUSH 10/19/16 19:15 10/20/16 07:03 (Maxipime Inj/NS Inj) 100 ml @ 200 mls/hr Q8H IV 10/20/16 13:00 10/29/16 23:59 10/26/16 04:53 (D50w (Vial) Inj) 25 ml UNSCH PRN IV PUSH 10/20/16 17:15 Insulin Human Regular 1 1 Q6HR SQ 10/20/16 18:00 10/23/16 05:39 (NS 1000 ml Inj) 1,000 ml @ 150 mls/hr Q6H40M IV 10/21/16 08:30 10/26/16 08:10 (Sodium Chloride) 3 gm Q8HR PO 10/22/16 14:00 10/26/16 04:53 (Florinef) 0.2 mg Q12HR PO 10/22/16 21:00 10/26/16 08:09 Enoxaparin Sodium 40 mg 40 mg Q24H SQ 10/23/16 21:00 10/25/16 21:13 Potassium Chloride 100 ml @ 50 mls/hr Q2H PRN IV 10/24/16 15:15 (KCl 20 Meq Premix Inj) 100 ml @ 50 mls/hr Q2H PRN IV 10/24/16 15:15 Potassium Bicarb/ Potassium Chloride 50 meq 50 meq UNSCH PRN PO 10/24/16 15:15 Potassium Chloride 100 ml @ 25 mls/hr UNSCH PRN IV 10/24/16 15:15 Potassium Chloride 100 ml @ 50 mls/hr Q2H PRN IV 10/24/16 15:15 (Magnesium Sulfate Inj/NS Inj) 100 ml @ 50 mls/hr UNSCH PRN IV 10/24/16 15:15 Magnesium Oxide 800 mg 800 mg UNSCH PRN PO 10/24/16 15:15 (Magnesium Sulfate Inj/NS Inj) 100 ml @ 50 mls/hr UNSCH PRN IV 10/24/16 15:15 Potassium Phosphate 2000 mg 2,000 mg Q4H PRN PO 10/24/16 15:15 (Sodium Phosphate Inj/NS 250 ml Inj) 250 ml @ 42 mls/hr UNSCH PRN IV 10/24/16 15:15 Potassium Phosphate 2000 mg 2,000 mg UNSCH PRN PO/TUBE 10/24/16 15:15 Potassium Phosphate 30 mmol/ Sodium Chloride 260 ml @ 42 mls/hr UNSCH PRN IV 10/24/16 15:15 (Sodium Chloride 3% Inj) 500 ml @ 10 mls/hr Q24H IV 10/25/16 21:00 10/25/16 21:25 (Meir Sánchez) Medical Decision Making MDM Remarks 1. Stable neurologic function 2. 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 Left basal ganglia region CVA primarily per CT 4. CSF cultures w/o any growth to date 5. No vasospasm per TCD yesterday 6. Max temp 100.0 (Meir Sánchez) Plan Plan Remarks D/C Nimotop this morning Activity to OOB to cardiac chair Continue therapy Replace sodium per [employer] Continue abx per [employer] Continue SBP 160-180 mm Hg per [employer] Continue Keppra for probable seizure activity Okay for Lovenox from NSGY standpoint Ulcer prophylaxis (Meir Sánchez) Attending Statement I have personally seen and examined the patient on the date of this note. Pertinent documentation and study results have been reviewed by the undersigned. I have personally developed the treatment plan and performed medical decision making. Agree with findings, exam, and treatment plan as noted above. Neurologic exam slowly improving Discontinue transcranial Doppler studies (Gino Mace MD) Meir Sánchez Oct 26, 2016 08:47 Gino Mace MD Oct 26, 2016 18:57
--- NOTE | 2016-10-26 09:22 | RADRPT ---
EXAM DATE/TIME: 10/26/2016 08:20 [place] COMPARISON: US TRANSCRANIAL DOPPLER COMPLETE, October 25, 2016, 8:10. INDICATIONS : Subarachnoid hemorrhage. MEDICAL HISTORY : Hypertension. Pancreatitis. TIA. Subarachnoid hemorrhage. SURGICAL HISTORY : Ventriculostomy clamp. Ventriculostomy drain. ENCOUNTER: Sequela ACUITY: 3 weeks PAIN SCORE: Nonresponsive. LOCATION: Bilateral cranial Current Exam: Oct 26, 2016 [place] Ratio: Right: 1.5 Left: 1.6 Gregorio Ratio: Right: 1.7 Left: 1.2 Previous Exam: Oct 25, 2016 [place] Ratio: Right: 2.1 Left: 1.5 Gregorio Ratio: Right: 2.8 Left: 1.3 FINDINGS: Examination performed at bedside. Real-time ultrasound with the assistance of color and spectral Dop pler was utilized to evaluate the intracerebral circulation. Time-averaged maximal velocities are ca lculated in cm/s. There is slow improvement when compared to the previous velocities and ratios. CONCLUSION: Minimal interval improvement with no evidence for vasospasm. Christian Song MD FACR on October 26, 2016 at 9:18 Board Certified Radiologist. This report was verified electronically.
--- NOTE | 2016-10-26 09:22 | MP ---
cc: DANNY PRATER MD DATE OF SURGERY: 10/24/2016 PREOPERATIVE DIAGNOSIS Hypertensive subdural hematoma, feeding difficulties in adult. POSTOPERATIVE DIAGNOSIS Hypertensive subdural hematoma, feeding difficulties in adult. PROCEDURE PERFORMED Percutaneous endoscopic gastrostomy tube placement at bedside. SURGEON Dr. Danny Prater [employer] Jenny Cardona ANESTHESIA 130 propofol. DRAINS None. COMPLICATIONS None. WOUND CLASSIFICATION Clean contaminated. FINDINGS Good dunk, good transillumination of abdominal wall, PEG tube placement visualized. INDICATION The patient is a 51-year-old male status post a hypertensive subdural hematoma, hypertensive brain bleed, presented a prolonged time on the ventilator and neurologic impairment. The patient with feeding difficulties in adult, necessary for gastrostomy tube. Discussed with family and consent obtained. DETAILS OF PROCEDURE The patient was already on tracheostomy vent anesthesia and administered propofol sedation. After a brief timeout the correct, procedure and surgical site were identified and all were in agreement with this. The patient was prepped and draped in the left upper quadrant to the PEG tube site. EGD was done. The scope was advanced through the mouth, oropharynx, down the esophagus to the stomach. The stomach was insufflated with air. Left upper quadrant location, index finger used to dunk and verify the location of the anterior abdominal wall of the stomach. The endoscope light was maximum transilluminated to show good transillumination. An introducer needle was used over an Angiocath, aspiration on entry into the stomach, in order to facilitate guidewire placement. The needle was removed and the Angiocath remained in place within the stomach. The guidewire was introduced and placed in this manner, advanced the endoscope and grasped the guidewire and brought through the stomach, esophagus and oropharynx. The gastrostomy tube was obtained and interlinked to the wire and then the endoscope was used with snare at the end of the gastrostomy tube and followed the gastrostomy down under direct visualization. A stab iftikhar incision was done at the guidewire site to facilitate the gastrostomy tube retrieval. Local anesthetic was injected as well. The gastrostomy tube wire was then re-grasped through the anterior abdominal wall and pulled through the abdominal wall and secured. The scope was reinserted and followed the tube down, noted to be satisfactory endogastric placement. The tube was then cut to length and the stopcock and adaptor was placed. The footplate was put at 5 and secured snugly to the anterior abdominal wall. The abdomen was then desufflated. Pictures were taken. The patient tolerated the procedure well. There was no complication. The patient remained in the ICU on the ventilator. Specimens were none. MD OC Pastrana/JOZEF /9:51 PM /9:03 AM
--- NOTE | 2016-10-26 09:49 | HHI.CCPN ---
Subjective Remarks/Hospital Course 51 year old male presents with being brought in as a trauma alert due to a head injury with altered mental status and a diminished GCS. The patient was in the bathroom and fell and hit his head. This was an unwitnessed fall. According to the patient's the patient had been unresponsive for approximately 15 minutes by the time ambulance services arrived. When they arrived the patient was noted to be a GCS of 14, however his mentation would wax and wane and go down as low as 3 again. On arrival to the emergency department he felt extremely nauseated. The CT of the head revealed diffuse subarachnoid bleed. 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 CT head today with some ventricular blood. ICP controlled and patient tolerates lightening of sedation. Volume loaded to maintain SBP > 130s. Opens eyes to voice. 10/07: BP controlled. TCDs to be done today. 10/08: BP control good. Well hydrated. No TCD evidence of spasm. 10/09: TCD today pending. CPP good. No seizure activity. Remains well hydrated. 10/10: TCDs no vasospasm. Remains well hydrated, well perfused. Some peripheral edema as expected. 10/11: Hemodynamics good. Bladder spasm continues. Try Flomax - an alpha kendall , will not impair cerebral vessels. 10/12: Episode of sepsis last night from obstructed Paul, JONH evident. Much improved now. 10/13: JONH improving. Narrow abx to GNR. 10/14: Aztreonam started for sputum, urine. CT Head acceptable. 10/15: No change in neuro status. BP control good. 10/16: Remains sedated, orally intubated on mechanical ventilation. Ventriculostomy in place. Underwent angiogram with injection of verapamil intra -arterial for minimal vasospasm on 10/15 10/17: Remains sedated, orally intubated on mechanical ventilation. Ventriculostomy drained 65 cc over 8 hours overnight. 10/18: off sedation. withdraws to pain. does not follow commands. per nursing, this is an exam change and he was previously following commands. 10/19: continues off sedation. ICP stable around 5. neuro exam stable. TCDs yesterday with questionable early spasm, but given stable neuro exam, decided to repeat TCD today to eval trend. 10/20: off sedation. taken yesterday for angio with IA verapamil for left MCA, SRI spasm. 10/21: spiked fever yesterday, white cultured. empirically started on broad spectrum abx. CSF sent for culture. initial CSF appeared cloudy but cell count and gram stain reassuring. TCDs yesterday without evidence of vasospasm. this AM sodium dropped from 147 to 139 with net -1L. likely early salt wasting, although up to this point urine studies have not shown concern for this up to now. 10/22: uop increased and sodium continues to downtrend despite salt tabs and ivf. still net -1L. urine studies concerning for salt wasting. sputum with enterobacter. neuro exam still stable. TCDs today without overt evidence of spasm. 10/23: still salt wasting. net -500cc/24h. aggressively replacing volume loss and sodium. TCDs today without any evidence of spasm and PI/LI now down to normal ranges. talked with Dr. Prater and while we have a window without spasm, will proceed with tracheostomy today. Likely PEG tube tomorrow. stable neurologic exam. 10/24: Na today 149, 3% at 10 ml per hour. s/p PEG today and still under heavy sedation. Was following commands to RN prior to receiving propofol for sedation. Trach done yesterday. -[id number] UO , getting IVF replacement 10/25: continues to have high UO 12L in 24 hours. D/w Dr. Mace -probably antidiuresis. Na 145. Remains on NS at 150 ml per hour and 3% at 10 ml per hour (increased 3% to 20 ml pr hour)/ weekly following commands in all 4 extremities , partial eye opening to command. Remains on Levophed at 8 mcg per min 10/26: Slightly less responsive today, getting TCDs. UO 7L -decreased from yesterday. Na 144 today. Remains on 8 mcg/min of Levophed to maintain cerebral perfusion. Objective Vital Signs Date Time Temp Pulse Resp B/P Pulse Ox O2 Delivery O2 Flow Rate FiO2 10/26/16 08:00 92 10/26/16 08:00 35 10/26/16 07:41 98 10/26/16 07:00 Mechanical Ventilator 10/26/16 04:00 99.5 22 150/90 Intake and Output 10/25/16 10/25/16 10/26/16 08:00 16:00 00:00 Intake Total 3333 ml 1806 ml 1535 ml Output Total 4155 ml 4150 ml 1500 ml Balance -822 ml -2344 ml 35 ml Result Diagram: 10/26/16 0546 10/26/16 0546 Imaging Last 24 hours Impressions Transcranial Doppler Study Complete 10/23/16 0700 Signed Impressions: Service Date/Time: Sunday, October 23, 2016 07:36 - CONCLUSION: Normal [place] and Gregorio ratios, spasm is not suspected. Tim Garcia MD Objective Remarks GENERAL: middle-aged male lying in bed, s/p trach SKIN: Dry HEAD: Normocephalic. EYES: Pupils are 2 mm and reactive bilaterally. NECK: Supple, trachea midline. CARDIOVASCULAR: Regular rate and rhythm. No JVD. RESPIRATORY:On TP, Breath sounds equal bilaterally. Clear, no wheezes or crackles. Good bilateral excursions. GASTROINTESTINAL: Abdomen soft, non-tender, nondistended. BS active. No guarding. EXTREMITIES: Nonfocal clubbing cyanosis or edema, well perfused. NEURO: Partial eye opening to command. Weakly follows commands in lower extremities. (Was weakly following in all 4 ext 10/25/16) A/P Problem List: (1) 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 ICD Code: I60.8 Status: Acute (2) Intracranial hemorrhage ICD Code: I62.9 Status: Acute (3) Hypertension ICD Code: I10 Status: Acute Assessment and Plan Assessment: 51yM with aneurysmal SAH, post-bleed day 21, s/p basilar artery coiling 10/05. S/p IA Verapamil 10/15 and 10/19 for cerebral vasospasm. There is some improvement in encephalopathy, acute hypoxic respiratory failure. Resolving sepsis. critically ill. Now in possible cerebral salt wasting. Continue salt tabs, 3% saline, florinef, and NS 150 ml per hour. strict I/Os. TCDs per N/S. s/p Trach 10/23 and PEG 10/24. Also continues to grow Enterobacter in the sputum , but now developing resistance. Will narrow abx therapy and set full course of abx. Plan: Neuro: Acute encephalopathy Basilar Aneurysm Aneurysmal Subarachnoid Hemorrhage Aneurysmal Subarachnoid bleed 10/05 Cerebral Vasospasm - Núñez Veliz 5 Lucas grade 3 - Nimodipine. Status post intra-arterial verapamil for vasospasm on 10/15, 10/19 - Pravachol - SBP 160 - 180 given recent cerebral vasospasm. - TCD's per N/S Dr Mace - Basilar tip coiled. - s/p angio with IA verapamil 10/15, 10/19 - goal euvolemia - Neuro exam improving, weakly following commands all 4 ext Respiratory: Acute Hypoxic and Hypercarbic Respiratory Failure - Intubated for airway protection - s/p trach 10/23 now on TP - DuoNeb's as needed for wheezing CV: Inadequate Cerebral Perfusion Septic Shock- resolving. - goal SBP 160- 180 given recent cerebral vasospasm. - Levophed for target blood pressure for cerebral perfusion. Renal: Possible Cerebral Salt Wasting - At this time its unclear whether patient is autodiuresing vs [employer] - Check CMP, uric acid, ser and urine osm and ser osm and urine Na - Goal euvolemia - Paul for accurate I/Os - strict I/Os - NaCl tabs 3gm q8h - Florinef 0.2mg q12h - NS @ 150-cc/hr - strict I/Os q1h - urine studies 10/21 consistent with cerebral salt wasting: at that time was patient intravascularly hypovolemic on clinical exam - q6h sodium. - NaCl boluses as needed to maintain euvolemia. FEN/GI: Acute Protein Calorie Malnutrition- mild -- vital high protein 40mL/hr. -- daily BMP -- ICU electrolyte protocol. Heme/ID: Fever Leukocytosis prior UTI- s/p full course abx -- 10/20 sputum culture- enterobacter, some reistance. sensitive to Cefepime. -- 10/20 urine culture- NGTD -- 10/20 CSF: 0 wbc, glu 111, prot 27.8, culture NGTD -- 10/20 Blood cx: NGTD -- 10/21 CSF: NGTD. -- Dr. Mace d/c EVD 10/21 -- d/cd vancomycin and flagyl. -- Continue cefepime 2gm iv q8hr for total 10 day course given early resistance of bacteria. anticipated stop date 10/29 Endocrine: Hyperglycemia of critical illness -- SSI Prophylaxis: - Teds SCDs - started Lovenox per nsgy. - Protonix IV Dispo: remain in the ICU. he remains critically ill. Critical Care time exclusive of separately billable procedures: 40 min. Problem Qualifiers (1) Hypertension: Qualified Code: I10 - Essential hypertension James Dumont MD Oct 26, 2016 09:49
--- NOTE | 2016-10-26 12:27 | HHI.PR ---
Subjective Subjective Notes MV via trach Objective Vitals/I&O Vital Signs Date Time Temp Pulse Resp B/P Pulse Ox O2 Delivery O2 Flow Rate FiO2 10/26/16 08:00 92 10/26/16 08:00 35 10/26/16 07:41 98 10/26/16 07:00 Mechanical Ventilator 10/26/16 04:00 99.5 22 150/90 Labs Laboratory Tests Test 10/25/16 10/26/16 22:13 05:46 Potassium Level 3.5 3.3 White Blood Count 11.8 Red Blood Count 3.11 Hemoglobin 9.4 Hematocrit 27.7 Mean Corpuscular Volume 89.1 Mean Corpuscular Hemoglobin 30.1 Mean Corpuscular Hemoglobin 33.8 Concent Red Cell Distribution Width 13.6 Platelet Count 273 Mean Platelet Volume 9.1 Neutrophils (%) (Auto) 75.7 Lymphocytes (%) (Auto) 13.0 Monocytes (%) (Auto) 8.8 Eosinophils (%) (Auto) 1.8 Basophils (%) (Auto) 0.7 Neutrophils # (Auto) 9.0 Lymphocytes # (Auto) 1.5 Monocytes # (Auto) 1.0 Eosinophils # (Auto) 0.2 Basophils # (Auto) 0.1 CBC Comment DIFF FINAL Differential Comment Sodium Level 144 Chloride Level 109 Carbon Dioxide Level 25.9 Anion Gap 9 Blood Urea Nitrogen 20 Creatinine 0.80 Estimat Glomerular Filtration 102 Rate Random Glucose 133 Calcium Level 8.1 Magnesium Level 2.1 Total Bilirubin 0.5 Aspartate Amino Transf 27 (AST/SGOT) Alanine Aminotransferase 60 (ALT/SGPT) Alkaline Phosphatase 68 Total Protein 6.6 Albumin 2.3 Cardiovascular: Regular Lungs: Clear Abdomen: Other (PEG in place; abdomen obese, soft; non tender to palpation ) Extremities: Other (generalized edema) A/P Assessment and Plan 51 year old male s/p trauma with head injury -S/P trach placement----vent per [facility] -S/P PEG placement---advance TF as tolerated -Trauma and Neurosurgery following -GS will sign off; please call with questions Attending Statement patient seen at bedside advance tf stable from surgery standpoint Attestation The exam, history, and the medical decision-making described in the above note were completed with the assistance of the mid-level provider. I reviewed and agree with the findings presented. I attest that I had a [id number] encounter with the patient on the same day, and personally performed and documented my assessment and findings in the medical record. Jonelle Mckeon Oct 26, 2016 12:27 Darrin Prater MD November 08, 2016 13:42
--- NOTE | 2016-10-26 12:27 | HHI.PR ---
Subjective Subjective Notes MV via trach Objective Vitals/I&O Vital Signs Date Time Temp Pulse Resp B/P Pulse Ox O2 Delivery O2 Flow Rate FiO2 10/26/16 08:00 92 10/26/16 08:00 35 10/26/16 07:41 98 10/26/16 07:00 Mechanical Ventilator 10/26/16 04:00 99.5 22 150/90 Labs Laboratory Tests Test 10/25/16 10/26/16 22:13 05:46 Potassium Level 3.5 3.3 White Blood Count 11.8 Red Blood Count 3.11 Hemoglobin 9.4 Hematocrit 27.7 Mean Corpuscular Volume 89.1 Mean Corpuscular Hemoglobin 30.1 Mean Corpuscular Hemoglobin 33.8 Concent Red Cell Distribution Width 13.6 Platelet Count 273 Mean Platelet Volume 9.1 Neutrophils (%) (Auto) 75.7 Lymphocytes (%) (Auto) 13.0 Monocytes (%) (Auto) 8.8 Eosinophils (%) (Auto) 1.8 Basophils (%) (Auto) 0.7 Neutrophils # (Auto) 9.0 Lymphocytes # (Auto) 1.5 Monocytes # (Auto) 1.0 Eosinophils # (Auto) 0.2 Basophils # (Auto) 0.1 CBC Comment DIFF FINAL Differential Comment Sodium Level 144 Chloride Level 109 Carbon Dioxide Level 25.9 Anion Gap 9 Blood Urea Nitrogen 20 Creatinine 0.80 Estimat Glomerular Filtration 102 Rate Random Glucose 133 Calcium Level 8.1 Magnesium Level 2.1 Total Bilirubin 0.5 Aspartate Amino Transf 27 (AST/SGOT) Alanine Aminotransferase 60 (ALT/SGPT) Alkaline Phosphatase 68 Total Protein 6.6 Albumin 2.3 Cardiovascular: Regular Lungs: Clear Abdomen: Other (PEG in place; abdomen obese, soft; non tender to palpation ) Extremities: Other (generalized edema) A/P Assessment and Plan 51 year old male s/p trauma with head injury -S/P trach placement----vent per [facility] -S/P PEG placement---advance TF as tolerated -Trauma and Neurosurgery following -GS will sign off; please call with questions Attending Statement patient seen at bedside advance tf stable from surgery standpoint Attestation The exam, history, and the medical decision-making described in the above note were completed with the assistance of the mid-level provider. I reviewed and agree with the findings presented. I attest that I had a [id number] encounter with the patient on the same day, and personally performed and documented my assessment and findings in the medical record. Jonelle Mckeon Oct 26, 2016 12:27 Darrin Prater MD November 08, 2016 13:42
[2016-10-26] MEDS: ENOXAPARIN SODIUM 40 MG/0.4 ML SYRINGE SQ SCH (20:19)
[2016-10-27] VITALS (17 sets, daily range): BP systolic 151–168; BP diastolic 90–98; PULSE 95–130; RESP 16–40; TEMP 99.3–100.2; O2SAT 96–100
[2016-10-27] MEDS: CHLORHEXIDINE GLUCONATE 2 % 1 PACK (2 CLOTHS) TOP SCH (04:00)
[2016-10-27] MEDS: CEFEPIME INJ 2,000 MG in SODIUM CHLORIDE 0.9% INJ 100 ML IV SCH ×3 (05:47→19:54)
[2016-10-27] MEDS: SODIUM CHLORIDE 1 GRAM TAB PO SCH ×3 (05:48→20:55)
[2016-10-27] MEDS: DOCUSATE SODIUM 100 MG CAP G-TUBE SCH ×2 (05:48→16:24)
[2016-10-27] MEDS: INSULIN NovoLIN REGULAR SUPPLEMENTAL SCALE SQ SCH ×4 (06:00→17:38)
[2016-10-27 06:11] LABS: AUTOMATED NEUTROPHIL # 8.9 TH/MM3 (1.8-7.7); BASOPHIL # 0.1 TH/MM3 (0-0.2); BASOPHIL % 1.1 % (0.0-2.0); EOSINOPHIL # 0.2 TH/MM3 (0-0.4); EOSINOPHIL % 1.8 % (0.0-4.0); HEMATOCRIT 27.5 % (39.0-51.0); HEMOGLOBIN 9.3 GM/DL (13.0-17.0); LYMPHOCYTE # 1.3 TH/MM3 (1.0-4.8); MEAN CELL VOLUME 88.6 FL (80.0-100.0); MEAN CORPUSCULAR HEMOGLOBIN 29.9 PG (27.0-34.0); MEAN CORPUSCULAR HGB CONC 33.8 % (32.0-36.0); MEAN PLATELET VOLUME 9.1 FL (7.0-11.0); MONO % 7.7 % (0.0-8.0); MONOCYTE # 0.9 TH/MM3 (0-0.9); NEUT % 78.4 % (16.0-70.0); PLATELET COUNT 246 TH/MM3 (150-450); RED BLOOD COUNT 3.11 MIL/MM3 (4.50-5.90); WHITE BLOOD COUNT 11.4 TH/MM3 (4.0-11.0)
[2016-10-27 06:37] LABS: ALBUMIN 2.3 GM/DL (3.4-5.0); ALKALINE PHOSPHATASE 61 U/L (45-117); ALT (GPT) 54 U/L (12-78); AST (GOT) 22 U/L (15-37); BLOOD UREA NITROGEN 21 MG/DL (7-18); CHLORIDE 110 MEQ/L (98-107); CREATININE 0.83 MG/DL (0.60-1.30); GLOMERULAR FILTRATION RATE 98 ML/MIN (>89); GLUCOSE,RANDOM 125 MG/DL (74-106); SODIUM (NA) 144 MEQ/L (136-145); TOTAL BILIRUBIN ADULT 0.4 MG/DL (0.2-1.0); TOTAL PROTEIN 6.3 GM/DL (6.4-8.2)
[2016-10-27] MEDS: 3% SALINE INJ 500 ML IV SCH ×2 (07:39→19:54)
[2016-10-27] MEDS: ARTIFICIAL TEARS OPTH SOLN 15 ML BTL EACH EYE SCH ×3 (07:40→16:25)
[2016-10-27] MEDS: FLUDROCORTISONE ACETATE 0.1 MG TAB PO SCH ×2 (07:40→19:55)
[2016-10-27] MEDS: PRAVASTATIN SOD 40 MG TAB PO SCH (07:40)
[2016-10-27] MEDS: POLYETHYLENE GLYCOL 17 GM PKG PO SCH (07:40)
[2016-10-27] MEDS: LACTULOSE SYRUP 20 GM/30 ML CUP PO SCH (07:40)
[2016-10-27] MEDS: SODIUM CHLOR 0.9% 1000 ML INJ 1,000 ML IV SCH ×2 (07:40→16:24)
[2016-10-27] MEDS: PANTOPRAZOLE SODIUM 40 MG VIAL IV SCH (07:40)
[2016-10-27] MEDS: levETIRAcetam INJ 500 MG in SODIUM CHLORIDE 0.9% INJ 100 ML IV SCH ×2 (07:41→19:54)
[2016-10-27] MEDS: SODIUM CHLORIDE 0.9% FLUSH 10 ML FLUSH IV FLUSH SCH (07:41)
[2016-10-27] MEDS: POTASSIUM CHLOR 20 MEQ PREMIX 100 ML IV PRN (07:41)
--- NOTE | 2016-10-27 10:08 | HHI.NSPN ---
(Meir Sánchez MANUFACTURING AUTOMATION ENGINEER) Note Status Status: Progress Note (Meir Sánchez) Interval History Interval History 51 year old male presents with being brought in as a trauma alert due to a head injury with altered mental status and a diminished GCS. The patient was in the bathroom and fell and hit his head. This was an unwitnessed fall. According to the patient's the patient had been unresponsive for approximately 15 minutes by the time ambulance services arrived. When they arrived the patient was noted to be a GCS of 14, however his mentation would wax and wane and go down as low as 3 again. On arrival to the emergency department he felt extremely nauseated. The CT of the head revealed diffuse subarachnoid bleed. Emergently intubated in the trauma bay. Possible seizure activity. Intubated in the emergency room. 10/05/16: Endovascular coiling 10/07/16 rinse intubated and sedated. Ventriculostomy in place 10/09/16: Remains intubated and sedated. Increased agitation with attempts at sedation vacation 10/17/16: Pupils 2 mm. Intubated and sedated. Somewhat more responsive with decreased sedation. External ventricular drain and closed to reservoir again today. 10/19/16: TCD with vasospasm, to angio with 10 mg Verapamil IA given. 10/20/16: Patient with fevers up to 102.8 per Nursing and cultures sent, Nursing reports CSF milky & with sediment. TCD being repeated this afternoon due to vast difference from that done this morning and yesterday. Corporate Wellness Coordinator increased SBP parameters to 180-200 mm Hg to help overcome vasospasms. No increase in ICP. 10/21/16: Still with elevated temp but not as high. TCD yesterday demonstrated resolution of vasospasms but today it demonstrated a right SRI vasospasm. Patient with facial grimacing and attempted eye opening. CSF specimen sent yesterday w/o any organisms or WBCs seen on Gram stain. 10/23/16: Trach done 10/24/16: PEG done at bedside prior to being seen. Nursing reports prior to sedation he was following commands to all extremities although right was weaker. Mild vasospasm per TCD. 10/25/16: No evident distress. Noted to move BLE & slight LUE spontaneously. Did open eyes partially after having been stimulated. TCD being done. 10/26/16: No evident distress, attempted eye opening to verbal & attempted to follow some commands, some spontaneous movements noted BLE & LUE. TCD being done. 10/27/16: No apparent distress, no eye opening, follows some commands. (Meir Sánchez) Labs, Micro, & Vital Signs Results Allergies Coded Allergies Type Severity Reaction Last Updated Verified Penicillin Allergy Unknown 10/06/16 Yes Sulfa Allergy Unknown 10/06/16 Yes Recent Impressions Transcranial Doppler Study Complete 10/26/16 07 Signed Impressions: Service Date/Time: Wednesday, October 26, 2016 08:20 - CONCLUSION: Minimal interval improvement with no evidence for vasospasm. Christian Song MD FACR Transcranial Doppler Study Complete 10/25/16 07 Signed Impressions: Service Date/Time: Tuesday, October 25, 2016 08:10 - CONCLUSION: 1. There is normalization of the ratios when compare with the prior study. There are no findings of vasospasm Trevin De León MD 10/25////// 06:00 18:00 06:00 18:00 06:00 18:00 Intake Total 4368 ml 3881 ml 2256 ml 2932 ml 1617 ml 516 ml Output Total 5825 ml 6805 ml 2200 ml 1950 ml 1250 ml 350 ml Balance -1457 ml -2924 ml 56 ml 982 ml 367 ml 166 ml IV Total 4018 ml 3638 ml 2076 ml 2495 ml 1300 ml 428 ml Tube Feeding 113 ml 180 ml 437 ml 317 ml 88 ml Other 350 ml 130 ml Output Urine Total 5825 ml 6805 ml 2200 ml 1950 ml 1000 ml 350 ml Stool Total 250 ml # Bowel Movements 1 1 0 2 Laboratory Tests Test 10/24/16 10/24/16 10/25/16 10/25/16 12:30 18:50 00:15 04:05 Sodium Level 149 MEQ/L 147 MEQ/L 146 MEQ/L 145 MEQ/L Phosphorus Level 2.4 MG/DL 3.3 MG/DL White Blood Count 10.7 TH/MM3 Red Blood Count 2.90 MIL/MM3 Hemoglobin 8.7 GM/DL Hematocrit 25.8 % Mean Corpuscular Volume 89.0 FL Mean Corpuscular Hemoglobin 30.2 PG Mean Corpuscular Hemoglobin 33.9 % Concent Red Cell Distribution Width 13.2 % Platelet Count 238 TH/MM3 Mean Platelet Volume 9.3 FL Potassium Level 3.5 MEQ/L Chloride Level 112 MEQ/L Carbon Dioxide Level 25.5 MEQ/L Anion Gap 8 MEQ/L Blood Urea Nitrogen 15 MG/DL Creatinine 0.68 MG/DL Estimat Glomerular Filtration 123 ML/MIN Rate Random Glucose 119 MG/DL Calcium Level 7.7 MG/DL Test 10/25/16 10/25/16 10/26/16 10/27/16 11:10 22:13 05:46 05:57 Urine Osmolality 290 MOSM/KG Urine Random Sodium 119 MEQ/L Sodium Level 147 MEQ/L 144 MEQ/L 144 MEQ/L Potassium Level 3.4 MEQ/L 3.5 MEQ/L 3.3 MEQ/L 3.3 MEQ/L Chloride Level 112 MEQ/L 109 MEQ/L 110 MEQ/L Carbon Dioxide Level 26.0 MEQ/L 25.9 MEQ/L 26.0 MEQ/L Anion Gap 9 MEQ/L 9 MEQ/L 8 MEQ/L Blood Urea Nitrogen 16 MG/DL 20 MG/DL 21 MG/DL Creatinine 0.71 MG/DL 0.80 MG/DL 0.83 MG/DL Estimat Glomerular Filtration 117 ML/MIN 102 ML/MIN 98 ML/MIN Rate Random Glucose 127 MG/DL 133 MG/DL 125 MG/DL Serum Osmolality 303 MOSM/KG Uric Acid 2.5 MG/DL Calcium Level 7.8 MG/DL 8.1 MG/DL 8.0 MG/DL Magnesium Level 2.3 MG/DL 2.1 MG/DL Total Bilirubin 0.5 MG/DL 0.5 MG/DL 0.4 MG/DL Aspartate Amino Transf 28 U/L 27 U/L 22 U/L (AST/SGOT) Alanine Aminotransferase 67 U/L 60 U/L 54 U/L (ALT/SGPT) Alkaline Phosphatase 67 U/L 68 U/L 61 U/L Total Protein 6.6 GM/DL 6.6 GM/DL 6.3 GM/DL Albumin 2.3 GM/DL 2.3 GM/DL 2.3 GM/DL White Blood Count 11.8 TH/MM3 11.4 TH/MM3 Red Blood Count 3.11 MIL/MM3 3.11 MIL/MM3 Hemoglobin 9.4 GM/DL 9.3 GM/DL Hematocrit 27.7 % 27.5 % Mean Corpuscular Volume 89.1 FL 88.6 FL Mean Corpuscular Hemoglobin 30.1 PG 29.9 PG Mean Corpuscular Hemoglobin 33.8 % 33.8 % Concent Red Cell Distribution Width 13.6 % 13.0 % Platelet Count 273 TH/MM3 246 TH/MM3 Mean Platelet Volume 9.1 FL 9.1 FL Neutrophils (%) (Auto) 75.7 % 78.4 % Lymphocytes (%) (Auto) 13.0 % 11.0 % Monocytes (%) (Auto) 8.8 % 7.7 % Eosinophils (%) (Auto) 1.8 % 1.8 % Basophils (%) (Auto) 0.7 % 1.1 % Neutrophils # (Auto) 9.0 TH/MM3 8.9 TH/MM3 Lymphocytes # (Auto) 1.5 TH/MM3 1.3 TH/MM3 Monocytes # (Auto) 1.0 TH/MM3 0.9 TH/MM3 Eosinophils # (Auto) 0.2 TH/MM3 0.2 TH/MM3 Basophils # (Auto) 0.1 TH/MM3 0.1 TH/MM3 CBC Comment DIFF FINAL DIFF FINAL Differential Comment Constitutional Vital Signs Date Time Temp Pulse Resp B/P Pulse Ox O2 Delivery O2 Flow Rate FiO2 10/27/16 10:00 108 10/27/16 08:00 100.2 112 25 163/93 98 10/27/16 08:00 35 10/27/16 08:00 98 35 10/27/16 08:00 95 10/27/16 07:00 99 Mechanical Ventilator 35 10/27/16 06:00 109 10/27/16 04:31 97 35 10/27/16 04:00 127 10/27/16 04:00 99.9 103 20 151/90 100 10/27/16 04:00 35 10/27/16 02:00 127 10/27/16 01:03 98 35 10/27/16 00:00 100.0 107 28 155/98 100 10/27/16 00:00 35 10/27/16 00:00 127 10/26/16 22:55 99 35 10/26/16 22:00 98 35 10/26/16 22:00 127 10/26/16 20:00 96 T-Piece 28 10/26/16 20:00 107 10/26/16 20:00 99.5 107 30 166/96 100 10/26/16 18:00 104 10/26/16 16:00 99.5 92 22 160/91 100 10/26/16 16:00 104 10/26/16 14:00 98 10/26/16 13:45 100 T-piece 6.00 40 10/26/16 12:00 99.3 78 28 159/89 100 10/26/16 12:00 35 10/26/16 12:00 99 10/26/16 11:30 99 35 10/27/16 07:00 Intake Total 4549 ml Output Total 3200 ml Balance 1349 ml (Meir Sánchez) Review of Systems/Exam ROS Unable to obtain ROS due to mental status & being intubated. Exam Resp: Respirations CTAB w/o W/R/R, equal excursion, non-laboured, trached & mechanically ventilated. CV: RRR w/o M/G/R but fast, radial & pedal pulses 2+ bilaterally, cap refill < 2 sec. Monitor is sinus tachycardia w/o any ectopy noted GI: Abdomen distended, bowel sounds all quads, PEG tube LUQ with enteral feeds at 20 mL/hr. : Paul cath to BSD. Neuro: Attempts to open eyes to verbal stimuli, PERRLA 5 to 3 mm bilaterally, EOM intact, conjugate gaze. 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 Ventriculostomy incision site dry w/o any evident drainage, erythema or streaking. (Meir Sánchez) Medications Current Medications Current Medications Medications (Trade) Dose Ordered Sig/Nava Route Start Time Stop Time Status Last Admin (Tylenol) 650 mg Q6H PRN PO 10/05/16 02:45 10/25/16 13:35 (Protonix Inj) 40 mg DAILY IV 10/05/16 09:00 10/27/16 07:40 (Tears Naturale Opth Soln) 1 drop TID EACH EYE 10/05/16 09:00 10/27/16 07:40 (Zofran Inj) 4 mg Q6H PRN IV 10/05/16 02:45 (Colace) 100 mg Q12H G-TUBE 10/05/16 04:00 10/27/16 05:48 Miscellaneous Information 1 Q361D XX 10/05/16 02:45 10/05/16 02:45 (Chlorhexidine 2% Cloth) 3 pack Taper DAILY@04 TOP 10/05/16 04:00 10/01/17 03:59 10/27/16 04:00 Chlorhexidine Gluconate 3 pack 3 pack UNSCH PRN TOP 10/05/16 02:45 Levetriacetam 500 mg/Sodium Chloride 105 ml @ 420 mls/hr Q12HR IV 10/05/16 09:00 10/27/16 07:41 (Cardene Inj/NS 250 ml Inj) 260 ml @ 0 mls/hr TITRATE IV 10/05/16 02:45 10/18/16 11:23 (Trandate Inj) 10 mg Q4H PRN IV PUSH 10/05/16 02:45 10/24/16 21:41 (Pravachol) 40 mg DAILY PO 10/05/16 09:00 10/27/16 07:40 (NS Flush) See Protocol DAILY IV FLUSH 10/07/16 09:00 10/27/16 07:41 (NS Flush) See Protocol UNSCH PRN IV FLUSH 10/06/16 12:00 Sodium Chloride UNSCH PRN IV FLUSH 10/06/16 12:00 (Levophed Inj/NS 250 ml Inj) 254 ml @ 0 mls/hr TITRATE IV 10/06/16 18:00 10/25/16 12:41 (Miralax) 17 gm DAILY PO 10/10/16 14:00 10/27/16 07:40 Lactulose 30 ml 30 ml DAILY PO 10/10/16 14:00 10/27/16 07:40 Potassium Chloride 100 ml @ 50 mls/hr Q2H PRN IV 10/14/16 16:00 10/23/16 08:03 (KCl 20 Meq Premix Inj) 100 ml @ 50 mls/hr Q2H PRN IV 10/14/16 16:00 10/15/16 17:29 Potassium Bicarb/ Potassium Chloride 50 meq 50 meq UNSCH PRN PO 10/14/16 16:00 10/20/16 07:04 Potassium Chloride 100 ml @ 25 mls/hr UNSCH PRN IV 10/14/16 16:00 10/18/16 06:50 Potassium Chloride 100 ml @ 50 mls/hr Q2H PRN IV 10/14/16 16:00 10/27/16 07:41 (Magnesium Sulfate Inj/NS Inj) 100 ml @ 50 mls/hr UNSCH PRN IV 10/14/16 16:00 Magnesium Oxide 800 mg 800 mg UNSCH PRN PO 10/14/16 16:00 (Magnesium Sulfate Inj/NS Inj) 100 ml @ 50 mls/hr UNSCH PRN IV 10/14/16 16:00 Potassium Phosphate 2000 mg 2,000 mg Q4H PRN PO 10/14/16 16:00 10/17/16 02:00 (Sodium Phosphate Inj/NS 250 ml Inj) 250 ml @ 42 mls/hr UNSCH PRN IV 10/14/16 16:00 10/24/16 20:31 Potassium Phosphate 2000 mg 2,000 mg UNSCH PRN PO/TUBE 10/14/16 16:00 10/18/16 06:51 (Potassium Phosphate Inj/NS 250 ml Inj) 260 ml @ 42 mls/hr UNSCH PRN IV 10/14/16 16:00 (Cathflo Activase Inj) 2 mg UNSCH PRN IV FLUSH 10/19/16 16:15 10/19/16 18:43 Diphenhydramine HCl 6.25 mg 6.25 mg Q4H PRN IV PUSH 10/19/16 19:15 10/20/16 07:03 (Maxipime Inj/NS Inj) 100 ml @ 200 mls/hr Q8H IV 10/20/16 13:00 10/29/16 23:59 10/27/16 05:47 (D50w (Vial) Inj) 25 ml UNSCH PRN IV PUSH 10/20/16 17:15 Insulin Human Regular 1 1 Q6HR SQ 10/20/16 18:00 10/23/16 05:39 (NS 1000 ml Inj) 1,000 ml @ 150 mls/hr Q6H40M IV 10/21/16 08:30 10/27/16 07:40 (Sodium Chloride) 3 gm Q8HR PO 10/22/16 14:00 10/27/16 05:48 (Florinef) 0.2 mg Q12HR PO 10/22/16 21:00 10/27/16 07:40 Enoxaparin Sodium 40 mg 40 mg Q24H SQ 10/23/16 21:00 10/26/16 20:19 Potassium Chloride 100 ml @ 50 mls/hr Q2H PRN IV 10/24/16 15:15 (KCl 20 Meq Premix Inj) 100 ml @ 50 mls/hr Q2H PRN IV 10/24/16 15:15 Potassium Bicarb/ Potassium Chloride 50 meq 50 meq UNSCH PRN PO 10/24/16 15:15 Potassium Chloride 100 ml @ 25 mls/hr UNSCH PRN IV 10/24/16 15:15 10/26/16 21:47 Potassium Chloride 100 ml @ 50 mls/hr Q2H PRN IV 10/24/16 15:15 (Magnesium Sulfate Inj/NS Inj) 100 ml @ 50 mls/hr UNSCH PRN IV 10/24/16 15:15 Magnesium Oxide 800 mg 800 mg UNSCH PRN PO 10/24/16 15:15 (Magnesium Sulfate Inj/NS Inj) 100 ml @ 50 mls/hr UNSCH PRN IV 10/24/16 15:15 Potassium Phosphate 2000 mg 2,000 mg Q4H PRN PO 10/24/16 15:15 (Sodium Phosphate Inj/NS 250 ml Inj) 250 ml @ 42 mls/hr UNSCH PRN IV 10/24/16 15:15 Potassium Phosphate 2000 mg 2,000 mg UNSCH PRN PO/TUBE 10/24/16 15:15 Potassium Phosphate 30 mmol/ Sodium Chloride 260 ml @ 42 mls/hr UNSCH PRN IV 10/24/16 15:15 (Sodium Chloride 3% Inj) 500 ml @ 10 mls/hr Q24H IV 10/25/16 21:00 10/27/16 07:39 (Meir Sánchez) Medical Decision Making MDM Remarks 1. Stable neurologic function 2. 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 Left basal ganglia region CVA primarily per CT 4. CSF cultures w/o any growth to date 5. No vasospasm per TCD yesterday 6. Max temp 100.2 (Meir Sánchez) Plan Plan Remarks CT brain w/o contrast in AM Activity to OOB to cardiac chair Continue therapy Replace sodium per Surgical Corporate Wellness Coordinator Continue abx per Surgical Corporate Wellness Coordinator Continue SBP 160-180 mm Hg per Surgical Corporate Wellness Coordinator Continue Keppra for probable seizure activity Okay for Lovenox from NSGY standpoint Ulcer prophylaxis (Meir Sánchez) Attending Statement I have personally seen and examined the patient on the date of this note. Pertinent documentation and study results have been reviewed by the undersigned. I have personally developed the treatment plan and performed medical decision making. Agree with findings, exam, and treatment plan as noted above. May normalize blood pressure at this point Off nimodipine Mental status slowly improving. (Gino Mace MD) Meir Sánchez Oct 27, 2016 10:08 Gino Mace MD Oct 28, 2016 20:45
--- NOTE | 2016-10-27 11:21 | HHI.PR ---
Neuropsych Progress Notes/Response to Tx Contents of Sessions: Level of Consciousness Time with Patient: 15 minutes Premorbid psychological status Premorbid Cognitive, Emotional and Behavioral Status: Unable to Assess. The patient past history is unknown as there has been no family present. Behavioral Reactions of Patient and Family/Support System: Unable to Assess. The patients family is not present. Emotional/Behavioral Status of Patient and Family/Support System: Unable to Assess. Pertinent issues, if appropriate to this patients clinical care, are described in detail above. Maximizing acute care outcome It is recommended that the patient be monitored for emergent behavioral impulsivity as the medical condition evolves. This patients neuropathological challenges may limit their rehabilitation potential going forward, and these challenges will require specialized therapeutic skills to maximize outcome. Anticipated Problems Ongoing areas of concern will include behavioral impulsivity, lack of insight and judgment, which is expected to improve with time and treatment. Treatment Plan This clinician will continue to follow with you throughout the course of this patients acute care stay, and I will be available to meet with the patients family/support system to facilitate their understanding and the ongoing care of their family member. The goals of neuropsychological intervention shall be both educational and supportive to the family/support system as is deemed clinically appropriate. [facility] ([place], [place]) Level: I:No response-total assistance Impression This patient has suffered a significant traumatic brain injury secondary to a fall on 10/05/2016. He is expected to have residual neurocognitive deficits, and will likely require some level of neuro rehabilitation following his acute stay and medical stabilization. Diagnosis: (1) Major neurocognitive disorder as late effect of traumatic brain injury with behavioral disturbance Status: Acute Progress Note Narrative Ongoing follow-up of patient seen in hospital room. This is day 23 post injury. The patient is reported to be less responsive today, compared to reports yesterday that he was demonstrating partial eye opening and following x 4. I was unable to get patient awake during my visit. Neurobehaviorally, he is consistent with a Rancho I at present. I will continue to follow. Jeremy Workman PhD Oct 27, 2016 11:21
--- NOTE | 2016-10-27 15:37 | HHI.CCPN ---
Subjective Remarks/Hospital Course 51 year old male presents with being brought in as a trauma alert due to a head injury with altered mental status and a diminished GCS. The patient was in the bathroom and fell and hit his head. This was an unwitnessed fall. According to the patient's the patient had been unresponsive for approximately 15 minutes by the time ambulance services arrived. When they arrived the patient was noted to be a GCS of 14, however his mentation would wax and wane and go down as low as 3 again. On arrival to the emergency department he felt extremely nauseated. The CT of the head revealed diffuse subarachnoid bleed. 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 CT head today with some ventricular blood. ICP controlled and patient tolerates lightening of sedation. Volume loaded to maintain SBP > 130s. Opens eyes to voice. 10/07: BP controlled. TCDs to be done today. 10/08: BP control good. Well hydrated. No TCD evidence of spasm. 10/09: TCD today pending. CPP good. No seizure activity. Remains well hydrated. 10/10: TCDs no vasospasm. Remains well hydrated, well perfused. Some peripheral edema as expected. 10/11: Hemodynamics good. Bladder spasm continues. Try Flomax - an alpha kendall , will not impair cerebral vessels. 10/12: Episode of sepsis last night from obstructed Paul, JONH evident. Much improved now. 10/13: JONH improving. Narrow abx to GNR. 10/14: Aztreonam started for sputum, urine. CT Head acceptable. 10/15: No change in neuro status. BP control good. 10/16: Remains sedated, orally intubated on mechanical ventilation. Ventriculostomy in place. Underwent angiogram with injection of verapamil intra -arterial for minimal vasospasm on 10/15 10/17: Remains sedated, orally intubated on mechanical ventilation. Ventriculostomy drained 65 cc over 8 hours overnight. 10/18: off sedation. withdraws to pain. does not follow commands. per nursing, this is an exam change and he was previously following commands. 10/19: continues off sedation. ICP stable around 5. neuro exam stable. TCDs yesterday with questionable early spasm, but given stable neuro exam, decided to repeat TCD today to eval trend. 10/20: off sedation. taken yesterday for angio with IA verapamil for left MCA, SRI spasm. 10/21: spiked fever yesterday, white cultured. empirically started on broad spectrum abx. CSF sent for culture. initial CSF appeared cloudy but cell count and gram stain reassuring. TCDs yesterday without evidence of vasospasm. this AM sodium dropped from 147 to 139 with net -1L. likely early salt wasting, although up to this point urine studies have not shown concern for this up to now. 10/22: uop increased and sodium continues to downtrend despite salt tabs and ivf. still net -1L. urine studies concerning for salt wasting. sputum with enterobacter. neuro exam still stable. TCDs today without overt evidence of spasm. 10/23: still salt wasting. net -500cc/24h. aggressively replacing volume loss and sodium. TCDs today without any evidence of spasm and PI/LI now down to normal ranges. talked with Dr. Prater and while we have a window without spasm, will proceed with tracheostomy today. Likely PEG tube tomorrow. stable neurologic exam. 10/24: Na today 149, 3% at 10 ml per hour. s/p PEG today and still under heavy sedation. Was following commands to RN prior to receiving propofol for sedation. Trach done yesterday. -[id number] UO , getting IVF replacement 10/25: continues to have high UO 12L in 24 hours. D/w Dr. Mace -probably antidiuresis. Na 145. Remains on NS at 150 ml per hour and 3% at 10 ml per hour (increased 3% to 20 ml pr hour)/ weekly following commands in all 4 extremities , partial eye opening to command. Remains on Levophed at 8 mcg per min 10/26: Slightly less responsive today, getting TCDs. UO 7L -decreased from yesterday. Na 144 today. Remains on 8 mcg/min of Levophed to maintain cerebral perfusion. SUBJECTIVE 10/27: Currently on T piece. Remains somnolent. Intermittently follows commands for the nurses. Remains on 1.5 mcg/min Levophed to maintain cerebral perfusion Objective Vital Signs Date Time Temp Pulse Resp B/P Pulse Ox O2 Delivery O2 Flow Rate FiO2 10/27/16 14:00 119 10/27/16 10:15 96 T-piece 6.00 40 10/27/16 08:00 100.2 25 163/93 Intake and Output 10/26/16 10/26/16 10/27/16 08:00 16:00 00:00 Intake Total 1672 ml 1631 ml 1296 ml Output Total 1250 ml 1135 ml 915 ml Balance 422 ml 496 ml 381 ml Result Diagram: 10/27/16 0557 10/27/16 0557 Imaging Last 24 hours Impressions Transcranial Doppler Study Complete 10/23/16 0700 Signed Impressions: Service Date/Time: Sunday, October 23, 2016 07:36 - CONCLUSION: Normal [place] and Gregorio ratios, spasm is not suspected. Tim Garcia MD Objective Remarks GENERAL: Middle-aged male lying in bed, s/p trach SKIN: Dry. HEAD: Normocephalic. EYES: Pupils are 2 mm and reactive bilaterally. NECK: Supple, trachea midline. CARDIOVASCULAR: Regular rate and rhythm. No JVD. RESPIRATORY:On TP, Breath sounds equal bilaterally. Clear, no wheezes or crackles. Good bilateral excursions. GASTROINTESTINAL: Abdomen soft, non-tender, nondistended. BS active. No guarding. EXTREMITIES: Nonfocal clubbing cyanosis or edema, well perfused. NEURO: No eye opening to command. Intermittently follows commands in lower extremities to RN. Withdraws to pain Urinary Catheter: Yes Assessment to: Continue A/P Problem List: (1) 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 ICD Code: I60.8 Status: Acute (2) Intracranial hemorrhage ICD Code: I62.9 Status: Acute (3) Hypertension ICD Code: I10 Status: Acute Assessment and Plan Assessment: 51yM with aneurysmal SAH, post-bleed day 21, s/p basilar artery coiling 10/05. S/p IA Verapamil 10/15 and 10/19 for cerebral vasospasm. There is some improvement in encephalopathy, acute hypoxic respiratory failure. Resolving sepsis. critically ill. Now in possible cerebral salt wasting. Continue salt tabs, 3% saline, florinef, and NS 150 ml per hour. strict I/Os. TCDs per N/S. s/p Trach 10/23 and PEG 10/24. Also continues to grow Enterobacter in the sputum , but now developing resistance. Will narrow abx therapy and set full course of abx. Plan: Neuro: Acute encephalopathy Basilar Aneurysm Aneurysmal Subarachnoid Hemorrhage Aneurysmal Subarachnoid bleed 10/05 Cerebral Vasospasm - Núñez Veliz 5 Lucas grade 3 - Nimodipine. Status post intra-arterial verapamil for vasospasm on 10/15, 10/19 - Pravachol - SBP 160 - 180 given recent cerebral vasospasm. - TCD's per N/S Dr Mace - Basilar tip coiled. - s/p angio with IA verapamil 10/15, 10/19 - goal euvolemia - Neuro exam improving, weakly following commands all 4 ext Respiratory: Acute Hypoxic and Hypercarbic Respiratory Failure - Intubated for airway protection - s/p trach 10/23 now on TP - DuoNeb's as needed for wheezing CV: Inadequate Cerebral Perfusion Septic Shock- resolving. - goal SBP 160- 180 given recent cerebral vasospasm. - Levophed for target blood pressure for cerebral perfusion. Renal: Possible Cerebral Salt Wasting - UO has decreased now to normal range. - Goal euvolemia - Paul for accurate I/Os - Strict I/Os - NaCl tabs 3gm q8h - Florinef 0.2mg q12h - NS @ 150-cc/hr - strict I/Os q1h - urine studies 10/21 consistent with cerebral salt wasting: at that time was patient intravascularly hypovolemic on clinical exam - q6h sodium-DC - NaCl boluses as needed to maintain euvolemia. FEN/GI: Acute Protein Calorie Malnutrition- mild -- vital high protein 40mL/hr. -- daily BMP -- ICU electrolyte protocol. Heme/ID: Fever Leukocytosis prior UTI -- s/p full course abx -- 10/20 sputum culture- enterobacter, some reistance. sensitive to Cefepime. -- 10/20 urine culture- NGTD -- 10/20 CSF: 0 wbc, glu 111, prot 27.8, culture NGTD -- 10/20 Blood cx: NGTD -- 10/21 CSF: NGTD. -- Dr. Mace d/c EVD 10/21 -- d/cd vancomycin and flagyl. -- Continue cefepime 2gm iv q8hr for total 10 day course given early resistance of bacteria. anticipated stop date 10/29 Endocrine: Hyperglycemia of critical illness -- SSI Prophylaxis: - Teds SCDs - started Lovenox per nsgy. - Protonix IV Dispo: remain in the ICU. he remains critically ill. CCT 30 Problem Qualifiers (1) Hypertension: Qualified Code: I10 - Essential hypertension James Dumont MD Oct 27, 2016 15:37
[2016-10-27] MEDS: ENOXAPARIN SODIUM 40 MG/0.4 ML SYRINGE SQ SCH (19:55)
[2016-10-27] MEDS: NOREPINEPHRINE INJ 4 MG in SODIUM CHLOR 0.9% 250 ML INJ 250 ML IV SCH (19:58)
[2016-10-27] MEDS: POTASSIUM CHLOR 40 MEQ PREMIX 100 ML IV PRN ×2 (20:55→22:25)
[2016-10-27] MEDS: ACETAMINOPHEN 325 MG TAB PO PRN (22:24)
[2016-10-28] VITALS (19 sets, daily range): BP systolic 151–180; BP diastolic 74–104; PULSE 74–130; RESP 11–33; TEMP 98.4–99.7; O2SAT 95–100
[2016-10-28] MEDS: SODIUM CHLOR 0.9% 1000 ML INJ 1,000 ML IV SCH ×3 (00:30→17:28)
[2016-10-28] MEDS: CHLORHEXIDINE GLUCONATE 2 % 1 PACK (2 CLOTHS) TOP SCH (04:00)
[2016-10-28] MEDS: DOCUSATE SODIUM 100 MG CAP G-TUBE SCH ×2 (04:36→16:00)
[2016-10-28] MEDS: CEFEPIME INJ 2,000 MG in SODIUM CHLORIDE 0.9% INJ 100 ML IV SCH ×3 (04:38→20:13)
[2016-10-28] MEDS: SODIUM CHLORIDE 1 GRAM TAB PO SCH ×3 (04:44→22:17)
--- NOTE | 2016-10-28 05:58 | RADRPT ---
EXAM DATE/TIME: 10/28/2016 05:32 [place] COMPARISON: CT BRAIN W/O CONTRAST, October 16, 2016, 4:20. CT BRAIN W/O CONTRAST, October 19, 2016, 4:53. INDICATIONS : Intracerebral hemorrhage. RADIATION DOSE: 45.52 CTDIvol (mGy) MEDICAL HISTORY : Cardiovascular disease. Hypertension. Pancreatitis. SURGICAL HISTORY : None. ENCOUNTER: Subsequent ACUITY: 3 weeks PAIN SCALE: Non-responsive LOCATION: cranial TECHNIQUE: Multiple contiguous axial images were obtained of the head. Using automated exposure control and adj ustment of the mA and/or kV according to patient size, radiation dose was kept as low as reasonably a chievable to obtain optimal diagnostic quality images. FINDINGS: Subarachnoid blood within the sulci of posterior bral hemispheres is less conspicuous in the interim. There is unchanged small subacute blood dependently in both lateral ventricles. A left parietal subd ural hematoma again noted, measures about 5 mm in maximal thickness; attenuation decreasing. Mass eff ect is minimal. No midline shift. Low-attenuation again seen in the anterior half of the left thalamus. Right ventriculostomy cath eter has been removed. There is focal low attenuation around its track. Lateral ventricles appear mil dly more prominent in the interim, especially the anterior horns. Third and fourth ventricles do not appear distended. No mass lesion. No evidence of a new or acute ischemic event. CONCLUSION: 1. Slowly resolving subarachnoid blood. 2. No significant change small intraventricular blood. 3. No significant change in the small left parietal subdural hemorrhage. 4. Evolving left thalamic hemorrhage not significantly changed in size. 5. Right ventriculostomy catheter removed in the interim. Mildly prominent lateral ventricles as abov e. 6. No new blood or new infarct. Tim Hammonds MD on October 28, 2016 at 5:48 Board Certified Radiologist. This report was verified electronically.
[2016-10-28] MEDS: INSULIN NovoLIN REGULAR SUPPLEMENTAL SCALE SQ SCH ×4 (06:00→18:00)
--- NOTE | 2016-10-28 08:45 | HHI.NSPN ---
(Meir Sánchez GENERAL STORE MANAGER) Note Status Status: Progress Note (Meir Sánchez) Interval History Interval History 51 year old male presents with being brought in as a trauma alert due to a head injury with altered mental status and a diminished GCS. The patient was in the bathroom and fell and hit his head. This was an unwitnessed fall. According to the patient's the patient had been unresponsive for approximately 15 minutes by the time ambulance services arrived. When they arrived the patient was noted to be a GCS of 14, however his mentation would wax and wane and go down as low as 3 again. On arrival to the emergency department he felt extremely nauseated. The CT of the head revealed diffuse subarachnoid bleed. Emergently intubated in the trauma bay. Possible seizure activity. Intubated in the emergency room. 10/05/16: Endovascular coiling 10/07/16 rinse intubated and sedated. Ventriculostomy in place 10/09/16: Remains intubated and sedated. Increased agitation with attempts at sedation vacation 10/17/16: Pupils 2 mm. Intubated and sedated. Somewhat more responsive with decreased sedation. External ventricular drain and closed to reservoir again today. 10/19/16: TCD with vasospasm, to angio with 10 mg Verapamil IA given. 10/20/16: Patient with fevers up to 102.8 per Nursing and cultures sent, Nursing reports CSF milky & with sediment. TCD being repeated this afternoon due to vast difference from that done this morning and yesterday. Geotechnical Field Technician increased SBP parameters to 180-200 mm Hg to help overcome vasospasms. No increase in ICP. 10/21/16: Still with elevated temp but not as high. TCD yesterday demonstrated resolution of vasospasms but today it demonstrated a right SRI vasospasm. Patient with facial grimacing and attempted eye opening. CSF specimen sent yesterday w/o any organisms or WBCs seen on Gram stain. 10/23/16: Trach done 10/24/16: PEG done at bedside prior to being seen. Nursing reports prior to sedation he was following commands to all extremities although right was weaker. Mild vasospasm per TCD. 10/25/16: No evident distress. Noted to move BLE & slight LUE spontaneously. Did open eyes partially after having been stimulated. TCD being done. 10/26/16: No evident distress, attempted eye opening to verbal & attempted to follow some commands, some spontaneous movements noted BLE & LUE. TCD being done. 10/27/16: No apparent distress, no eye opening, follows some commands. 10/28/16: Remains tracheed, NAD, follows some commands, spontaneous movement of BLE & LUE noted. (Meir Sánchez) Labs, Micro, & Vital Signs Results Allergies Coded Allergies Type Severity Reaction Last Updated Verified Penicillin Allergy Unknown 10/06/16 Yes Sulfa Allergy Unknown 10/06/16 Yes Recent Impressions Head CT 10/28/16 0000 Signed Impressions: Service Date/Time: Friday, October 28, 2016 05:32 - CONCLUSION: 1. Slowly resolving subarachnoid blood. 2. No significant change small intraventricular blood. 3. No significant change in the small left parietal subdural hemorrhage. 4. Evolving left thalamic hemorrhage not significantly changed in size. 5. Right ventriculostomy catheter removed in the interim. Mildly prominent lateral ventricles as above. 6. No new blood or new infarct. Tim Hammonds MD Transcranial Doppler Study Complete 10/26/16 0700 Signed Impressions: Service Date/Time: Wednesday, October 26, 2016 08:20 - CONCLUSION: Minimal interval improvement with no evidence for vasospasm. Christian Song MD FACR ///// 06:00 18:00 06:00 18:00 06:00 18:00 Intake Total 2256 ml 2932 ml 1617 ml 1790 ml 2673 ml Output Total 2200 ml 1950 ml 1250 ml 1950 ml 2400 ml Balance 56 ml 982 ml 367 ml -160 ml 273 ml IV Total 2076 ml 2495 ml 1300 ml 1480 ml 2008 ml Tube Feeding 180 ml 437 ml 317 ml 310 ml 545 ml Tube Irrigant 120 ml Output Urine Total 2200 ml 1950 ml 1000 ml 1350 ml 1900 ml Stool Total 250 ml 600 ml 500 ml # Bowel Movements 0 2 Laboratory Tests Test 10/25/16 10/25/16 10/26/16 10/27/16 11:10 22:13 05:46 05:57 Urine Osmolality 290 MOSM/KG Urine Random Sodium 119 MEQ/L Sodium Level 147 MEQ/L 144 MEQ/L 144 MEQ/L Potassium Level 3.4 MEQ/L 3.5 MEQ/L 3.3 MEQ/L 3.3 MEQ/L Chloride Level 112 MEQ/L 109 MEQ/L 110 MEQ/L Carbon Dioxide Level 26.0 MEQ/L 25.9 MEQ/L 26.0 MEQ/L Anion Gap 9 MEQ/L 9 MEQ/L 8 MEQ/L Blood Urea Nitrogen 16 MG/DL 20 MG/DL 21 MG/DL Creatinine 0.71 MG/DL 0.80 MG/DL 0.83 MG/DL Estimat Glomerular Filtration 117 ML/MIN 102 ML/MIN 98 ML/MIN Rate Random Glucose 127 MG/DL 133 MG/DL 125 MG/DL Serum Osmolality 303 MOSM/KG Uric Acid 2.5 MG/DL Calcium Level 7.8 MG/DL 8.1 MG/DL 8.0 MG/DL Magnesium Level 2.3 MG/DL 2.1 MG/DL Total Bilirubin 0.5 MG/DL 0.5 MG/DL 0.4 MG/DL Aspartate Amino Transf 28 U/L 27 U/L 22 U/L (AST/SGOT) Alanine Aminotransferase 67 U/L 60 U/L 54 U/L (ALT/SGPT) Alkaline Phosphatase 67 U/L 68 U/L 61 U/L Total Protein 6.6 GM/DL 6.6 GM/DL 6.3 GM/DL Albumin 2.3 GM/DL 2.3 GM/DL 2.3 GM/DL White Blood Count 11.8 TH/MM3 11.4 TH/MM3 Red Blood Count 3.11 MIL/MM3 3.11 MIL/MM3 Hemoglobin 9.4 GM/DL 9.3 GM/DL Hematocrit 27.7 % 27.5 % Mean Corpuscular Volume 89.1 FL 88.6 FL Mean Corpuscular Hemoglobin 30.1 PG 29.9 PG Mean Corpuscular Hemoglobin 33.8 % 33.8 % Concent Red Cell Distribution Width 13.6 % 13.0 % Platelet Count 273 TH/MM3 246 TH/MM3 Mean Platelet Volume 9.1 FL 9.1 FL Neutrophils (%) (Auto) 75.7 % 78.4 % Lymphocytes (%) (Auto) 13.0 % 11.0 % Monocytes (%) (Auto) 8.8 % 7.7 % Eosinophils (%) (Auto) 1.8 % 1.8 % Basophils (%) (Auto) 0.7 % 1.1 % Neutrophils # (Auto) 9.0 TH/MM3 8.9 TH/MM3 Lymphocytes # (Auto) 1.5 TH/MM3 1.3 TH/MM3 Monocytes # (Auto) 1.0 TH/MM3 0.9 TH/MM3 Eosinophils # (Auto) 0.2 TH/MM3 0.2 TH/MM3 Basophils # (Auto) 0.1 TH/MM3 0.1 TH/MM3 CBC Comment DIFF FINAL DIFF FINAL Differential Comment Test 10/27/16 10/28/16 19:45 05:00 Potassium Level 3.2 MEQ/L 3.5 MEQ/L Constitutional Vital Signs Date Time Temp Pulse Resp B/P Pulse Ox O2 Delivery O2 Flow Rate FiO2 10/28/16 08:24 99 35 10/28/16 06:00 92 10/28/16 05:50 100 100 10/28/16 05:25 100 100 10/28/16 04:00 82 10/28/16 04:00 100 35 10/28/16 04:00 99.3 79 11 151/88 99 10/28/16 04:00 35 10/28/16 02:00 130 10/28/16 00:00 35 10/28/16 00:00 99.7 109 19 160/74 95 10/28/16 00:00 130 10/27/16 23:57 98 35 10/27/16 22:03 98 35 10/27/16 22:00 130 10/27/16 22:00 35 10/27/16 20:00 119 10/27/16 20:00 97 T-Piece 40 10/27/16 20:00 99.5 119 16 162/90 97 10/27/16 20:00 40 10/27/16 18:00 110 10/27/16 16:00 115 10/27/16 16:00 99.5 114 21 168/97 98 10/27/16 14:00 119 10/27/16 12:00 110 10/27/16 12:00 99.3 112 40 166/94 98 10/27/16 10:15 96 T-piece 6.00 40 10/27/16 10:00 108 10/28/16 07:00 Intake Total 4463 ml Output Total 4350 ml Balance 113 ml (Meir Sánchez) Review of Systems/Exam ROS Unable to obtain ROS due to mental status & being intubated. Exam Resp: Respirations CTAB w/o W/R/R, equal excursion, non-laboured, trached & mechanically ventilated. CV: RRR w/o M/G/R, radial & pedal pulses 2+ bilaterally, cap refill < 2 sec. Monitor is sinus rhythm w/o any ectopy noted GI: Abdomen distended, bowel sounds all quads, PEG tube LUQ with enteral feeds at 40 mL/hr. : Paul cath to BSD. Neuro: No evident attempt to open eyes to stimuli, PERRLA 5 to 3 mm bilaterally , EOM intact, conjugate gaze. Spontaneous movement of BLE & LUE, hand change house attendant with left hand but none to right, moves left foot when asked to wiggle toes. Facial grimacing to noxious stimuli to RUE. Ventriculostomy incision site dry w/o any evident drainage, erythema or streaking. (Meir Sánchez) Medications Current Medications Current Medications Medications (Trade) Dose Ordered Sig/Nava Route Start Time Stop Time Status Last Admin (Tylenol) 650 mg Q6H PRN PO 10/05/16 02:45 10/27/16 22:24 (Protonix Inj) 40 mg DAILY IV 10/05/16 09:00 10/27/16 07:40 (Tears Naturale Opth Soln) 1 drop TID EACH EYE 10/05/16 09:00 10/27/16 16:25 (Zofran Inj) 4 mg Q6H PRN IV 10/05/16 02:45 (Colace) 100 mg Q12H G-TUBE 10/05/16 04:00 10/28/16 04:36 Miscellaneous Information 1 Q361D XX 10/05/16 02:45 10/05/16 02:45 (Chlorhexidine 2% Cloth) 3 pack Taper DAILY@04 TOP 10/05/16 04:00 10/01/17 03:59 10/28/16 04:00 Chlorhexidine Gluconate 3 pack 3 pack UNSCH PRN TOP 10/05/16 02:45 Levetriacetam 500 mg/Sodium Chloride 105 ml @ 420 mls/hr Q12HR IV 10/05/16 09:00 10/27/16 19:54 (Cardene Inj/NS 250 ml Inj) 260 ml @ 0 mls/hr TITRATE IV 10/05/16 02:45 10/18/16 11:23 (Trandate Inj) 10 mg Q4H PRN IV PUSH 10/05/16 02:45 10/24/16 21:41 (Pravachol) 40 mg DAILY PO 10/05/16 09:00 10/27/16 07:40 (NS Flush) See Protocol DAILY IV FLUSH 10/07/16 09:00 10/27/16 07:41 (NS Flush) See Protocol UNSCH PRN IV FLUSH 10/06/16 12:00 Sodium Chloride UNSCH PRN IV FLUSH 10/06/16 12:00 (Levophed Inj/NS 250 ml Inj) 254 ml @ 0 mls/hr TITRATE IV 10/06/16 18:00 10/27/16 19:58 (Miralax) 17 gm DAILY PO 10/10/16 14:00 10/27/16 07:40 Lactulose 30 ml 30 ml DAILY PO 10/10/16 14:00 10/27/16 07:40 Potassium Chloride 100 ml @ 50 mls/hr Q2H PRN IV 10/14/16 16:00 10/27/16 22:25 (KCl 20 Meq Premix Inj) 100 ml @ 50 mls/hr Q2H PRN IV 10/14/16 16:00 10/15/16 17:29 Potassium Bicarb/ Potassium Chloride 50 meq 50 meq UNSCH PRN PO 10/14/16 16:00 10/20/16 07:04 Potassium Chloride 100 ml @ 25 mls/hr UNSCH PRN IV 10/14/16 16:00 10/18/16 06:50 Potassium Chloride 100 ml @ 50 mls/hr Q2H PRN IV 10/14/16 16:00 10/27/16 07:41 (Magnesium Sulfate Inj/NS Inj) 100 ml @ 50 mls/hr UNSCH PRN IV 10/14/16 16:00 Magnesium Oxide 800 mg 800 mg UNSCH PRN PO 10/14/16 16:00 (Magnesium Sulfate Inj/NS Inj) 100 ml @ 50 mls/hr UNSCH PRN IV 10/14/16 16:00 Potassium Phosphate 2000 mg 2,000 mg Q4H PRN PO 10/14/16 16:00 10/17/16 02:00 (Sodium Phosphate Inj/NS 250 ml Inj) 250 ml @ 42 mls/hr UNSCH PRN IV 10/14/16 16:00 10/24/16 20:31 Potassium Phosphate 2000 mg 2,000 mg UNSCH PRN PO/TUBE 10/14/16 16:00 10/18/16 06:51 (Potassium Phosphate Inj/NS 250 ml Inj) 260 ml @ 42 mls/hr UNSCH PRN IV 10/14/16 16:00 (Cathflo Activase Inj) 2 mg UNSCH PRN IV FLUSH 10/19/16 16:15 10/19/16 18:43 Diphenhydramine HCl 6.25 mg 6.25 mg Q4H PRN IV PUSH 10/19/16 19:15 10/20/16 07:03 (Maxipime Inj/NS Inj) 100 ml @ 200 mls/hr Q8H IV 10/20/16 13:00 10/29/16 23:59 10/28/16 04:38 (D50w (Vial) Inj) 25 ml UNSCH PRN IV PUSH 10/20/16 17:15 Insulin Human Regular 1 1 Q6HR SQ 10/20/16 18:00 10/23/16 05:39 (NS 1000 ml Inj) 1,000 ml @ 150 mls/hr Q6H40M IV 10/21/16 08:30 10/28/16 00:30 (Sodium Chloride) 3 gm Q8HR PO 10/22/16 14:00 10/28/16 04:44 (Florinef) 0.2 mg Q12HR PO 10/22/16 21:00 10/27/16 19:55 Enoxaparin Sodium 40 mg 40 mg Q24H SQ 10/23/16 21:00 10/27/16 19:55 Potassium Chloride 100 ml @ 50 mls/hr Q2H PRN IV 10/24/16 15:15 (KCl 20 Meq Premix Inj) 100 ml @ 50 mls/hr Q2H PRN IV 10/24/16 15:15 Potassium Bicarb/ Potassium Chloride 50 meq 50 meq UNSCH PRN PO 10/24/16 15:15 Potassium Chloride 100 ml @ 25 mls/hr UNSCH PRN IV 10/24/16 15:15 10/26/16 21:47 Potassium Chloride 100 ml @ 50 mls/hr Q2H PRN IV 10/24/16 15:15 (Magnesium Sulfate Inj/NS Inj) 100 ml @ 50 mls/hr UNSCH PRN IV 10/24/16 15:15 Magnesium Oxide 800 mg 800 mg UNSCH PRN PO 10/24/16 15:15 (Magnesium Sulfate Inj/NS Inj) 100 ml @ 50 mls/hr UNSCH PRN IV 10/24/16 15:15 Potassium Phosphate 2000 mg 2,000 mg Q4H PRN PO 10/24/16 15:15 (Sodium Phosphate Inj/NS 250 ml Inj) 250 ml @ 42 mls/hr UNSCH PRN IV 10/24/16 15:15 Potassium Phosphate 2000 mg 2,000 mg UNSCH PRN PO/TUBE 10/24/16 15:15 Potassium Phosphate 30 mmol/ Sodium Chloride 260 ml @ 42 mls/hr UNSCH PRN IV 10/24/16 15:15 (Sodium Chloride 3% Inj) 500 ml @ 10 mls/hr Q24H IV 10/25/16 21:00 10/27/16 19:54 (Meir Sánchez) Medical Decision Making MDM Remarks 1. Stable neurologic function 2. 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 Left basal ganglia region CVA primarily per CT 4. CSF cultures w/o any growth to date 5. Max temp 99.7 (Meir Sánchez) Plan Plan Remarks Activity OOB to cardiac chair Continue therapy Replace sodium per Surgical Geotechnical Field Technician Continue abx per Surgical Geotechnical Field Technician Continue SBP 160-180 mm Hg per Surgical Geotechnical Field Technician Continue Keppra for probable seizure activity Okay for Lovenox from NSGY standpoint Ulcer prophylaxis (Meir Sánchez) Attending Statement I have personally seen and examined the patient on the date of this note. Pertinent documentation and study results have been reviewed by the undersigned. I have personally developed the treatment plan and performed medical decision making. Agree with findings, exam, and treatment plan as noted above. Bilateral grasp to command Moderate conjugate extraocular movements Moves all extremities spontaneous Weaning ventilator-CPAP trials normalize blood pressure and sodium (Gino Mace MD) Meir Sánchez Oct 28, 2016 08:45 Gino Mace MD Oct 28, 2016 20:47
[2016-10-28] MEDS: ARTIFICIAL TEARS OPTH SOLN 15 ML BTL EACH EYE SCH ×3 (09:00→18:00)
[2016-10-28] MEDS: SODIUM CHLORIDE 0.9% FLUSH 10 ML FLUSH IV FLUSH SCH (09:00)
[2016-10-28] MEDS: levETIRAcetam INJ 500 MG in SODIUM CHLORIDE 0.9% INJ 100 ML IV SCH ×2 (09:09→20:13)
[2016-10-28] MEDS: LACTULOSE SYRUP 20 GM/30 ML CUP PO SCH (09:09)
[2016-10-28] MEDS: POLYETHYLENE GLYCOL 17 GM PKG PO SCH (09:09)
[2016-10-28] MEDS: PANTOPRAZOLE SODIUM 40 MG VIAL IV SCH (09:10)
[2016-10-28] MEDS: PRAVASTATIN SOD 40 MG TAB PO SCH (09:11)
[2016-10-28] MEDS: FLUDROCORTISONE ACETATE 0.1 MG TAB PO SCH ×2 (09:28→20:14)
--- NOTE | 2016-10-28 12:03 | HHI.PR ---
Neuropsych Emotional Emotional: UnabletoAssess: Emotional, Anxious/Fearful, Depressed/Sad, Hostile/ Resentful, Irritable/Angry/Frustrate, Labile, Constricted/Blunted Behavior Behavior: Unable to Asses: Behavior, Coping/Acceptance, Cooperative w/ Treatment, Motivation, Frustration Tolerance/[place], Impulsive/Agitated, Suicidal/ Homicidal Risk Cognitive Cognitive: Unable to Asses: Cognitive, Attention/Concentration, Confused/ Orientation, Insight/Awareness, Judgement/Problem-Solving, Memory Psychosocial Psychosocial: Unable to Asses: Psychosocial, Family/Other Adjustment, Realistic Expectation, Self-Esteem/Confidence Progress Notes/Response to Tx Contents of Sessions: Level of Consciousness Time with Patient: 30 minutes Premorbid psychological status Premorbid Cognitive, Emotional and Behavioral Status: Unable to Assess. The patient past history is unknown as there has been no family present. Behavioral Reactions of Patient and Family/Support System: Unable to Assess. The patients family is not present. Emotional/Behavioral Status of Patient and Family/Support System: Unable to Assess. Pertinent issues, if appropriate to this patients clinical care, are described in detail above. Maximizing acute care outcome It is recommended that the patient be monitored for emergent behavioral impulsivity as the medical condition evolves. This patients neuropathological challenges may limit their rehabilitation potential going forward, and these challenges will require specialized therapeutic skills to maximize outcome. Anticipated Problems Ongoing areas of concern will include behavioral impulsivity, lack of insight and judgment, which is expected to improve with time and treatment. Treatment Plan This clinician will continue to follow with you throughout the course of this patients acute care stay, and I will be available to meet with the patients family/support system to facilitate their understanding and the ongoing care of their family member. The goals of neuropsychological intervention shall be both educational and supportive to the family/support system as is deemed clinically appropriate. Impression This patient has suffered a significant traumatic brain injury secondary to a fall on 10/05/2016. He is expected to have residual neurocognitive deficits, and will likely require some level of neuro rehabilitation following his acute stay and medical stabilization. Diagnosis: (1) Major neurocognitive disorder as late effect of traumatic brain injury with behavioral disturbance Status: Acute Progress Note Narrative Ongoing follow-up of patient. Spoke briefly with Dr. Dumont concerning potential suggestions for future treatment. This is day 24 post injury. Neurobehaviorally, this patient was unable to open his eyes, but did move all extremities to command. He is generally somnolent. I will continue to follow. Jeremy Workman PhD Oct 28, 2016 12:03
--- NOTE | 2016-10-28 15:36 | HHI.CCPN ---
Subjective Remarks/Hospital Course 51 year old male presents with being brought in as a trauma alert due to a head injury with altered mental status and a diminished GCS. The patient was in the bathroom and fell and hit his head. This was an unwitnessed fall. According to the patient's the patient had been unresponsive for approximately 15 minutes by the time ambulance services arrived. When they arrived the patient was noted to be a GCS of 14, however his mentation would wax and wane and go down as low as 3 again. On arrival to the emergency department he felt extremely nauseated. The CT of the head revealed diffuse subarachnoid bleed. 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 CT head today with some ventricular blood. ICP controlled and patient tolerates lightening of sedation. Volume loaded to maintain SBP > 130s. Opens eyes to voice. 10/07: BP controlled. TCDs to be done today. 10/08: BP control good. Well hydrated. No TCD evidence of spasm. 10/09: TCD today pending. CPP good. No seizure activity. Remains well hydrated. 10/10: TCDs no vasospasm. Remains well hydrated, well perfused. Some peripheral edema as expected. 10/11: Hemodynamics good. Bladder spasm continues. Try Flomax - an alpha kendall , will not impair cerebral vessels. 10/12: Episode of sepsis last night from obstructed Paul, JONH evident. Much improved now. 10/13: JONH improving. Narrow abx to GNR. 10/14: Aztreonam started for sputum, urine. CT Head acceptable. 10/15: No change in neuro status. BP control good. 10/16: Remains sedated, orally intubated on mechanical ventilation. Ventriculostomy in place. Underwent angiogram with injection of verapamil intra -arterial for minimal vasospasm on 10/15 10/17: Remains sedated, orally intubated on mechanical ventilation. Ventriculostomy drained 65 cc over 8 hours overnight. 10/18: off sedation. withdraws to pain. does not follow commands. per nursing, this is an exam change and he was previously following commands. 10/19: continues off sedation. ICP stable around 5. neuro exam stable. TCDs yesterday with questionable early spasm, but given stable neuro exam, decided to repeat TCD today to eval trend. 10/20: off sedation. taken yesterday for angio with IA verapamil for left MCA, SRI spasm. 10/21: spiked fever yesterday, white cultured. empirically started on broad spectrum abx. CSF sent for culture. initial CSF appeared cloudy but cell count and gram stain reassuring. TCDs yesterday without evidence of vasospasm. this AM sodium dropped from 147 to 139 with net -1L. likely early salt wasting, although up to this point urine studies have not shown concern for this up to now. 10/22: uop increased and sodium continues to downtrend despite salt tabs and ivf. still net -1L. urine studies concerning for salt wasting. sputum with enterobacter. neuro exam still stable. TCDs today without overt evidence of spasm. 10/23: still salt wasting. net -500cc/24h. aggressively replacing volume loss and sodium. TCDs today without any evidence of spasm and PI/LI now down to normal ranges. talked with Dr. Prater and while we have a window without spasm, will proceed with tracheostomy today. Likely PEG tube tomorrow. stable neurologic exam. 10/24: Na today 149, 3% at 10 ml per hour. s/p PEG today and still under heavy sedation. Was following commands to RN prior to receiving propofol for sedation. Trach done yesterday. -[id number] UO , getting IVF replacement 10/25: continues to have high UO 12L in 24 hours. D/w Dr. Mace -probably antidiuresis. Na 145. Remains on NS at 150 ml per hour and 3% at 10 ml per hour (increased 3% to 20 ml pr hour)/ weekly following commands in all 4 extremities , partial eye opening to command. Remains on Levophed at 8 mcg per min 10/26: Slightly less responsive today, getting TCDs. UO 7L -decreased from yesterday. Na 144 today. Remains on 8 mcg/min of Levophed to maintain cerebral perfusion. SUBJECTIVE 10/27: Currently on T piece. Remains somnolent. Intermittently follows commands for the nurses. Remains on 1.5 mcg/min Levophed to maintain cerebral perfusion 10/28/16: Remains on CPAP today. Followed commands in upper extremities for RN today. More somnolent and not following commands to me. On 6 mcg per min of Levophed to maintain CPP Objective Vital Signs Date Time Temp Pulse Resp B/P Pulse Ox O2 Delivery O2 Flow Rate FiO2 10/28/16 12:23 99 35 10/28/16 06:00 92 10/28/16 04:00 99.3 11 151/88 10/27/16 20:00 T-Piece 10/27/16 10:15 6.00 Intake and Output 10/27/16 10/27/16 10/28/16 08:00 16:00 00:00 Intake Total 1187 ml 1274 ml 1290 ml Output Total 950 ml 1600 ml 1200 ml Balance 237 ml -326 ml 90 ml Result Diagram: 10/27/16 0557 10/28/16 0500 Imaging Last 24 hours Impressions Transcranial Doppler Study Complete 10/23/16 0700 Signed Impressions: Service Date/Time: Sunday, October 23, 2016 07:36 - CONCLUSION: Normal Lindegaard and Gregorio ratios, spasm is not suspected. Tim Garcia MD Objective Remarks GENERAL: Middle-aged male lying in bed, s/p trach SKIN: Dry. HEAD: Normocephalic. EYES: Pupils are 2 mm and reactive bilaterally. NECK: Supple, trachea midline. CARDIOVASCULAR: Regular rate and rhythm. No JVD. RESPIRATORY:On CPAP, Breath sounds equal bilaterally. Clear, no wheezes or crackles. Good bilateral excursions. GASTROINTESTINAL: Abdomen soft, non-tender, nondistended. BS active. No guarding. EXTREMITIES: Nonfocal clubbing cyanosis or edema, well perfused. NEURO: No eye opening to command. Intermittently follows commands in lower extremities to RN. Withdraws to pain A/P Problem List: (1) 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 ICD Code: I60.8 Status: Acute (2) Intracranial hemorrhage ICD Code: I62.9 Status: Acute (3) Hypertension ICD Code: I10 Status: Acute Assessment and Plan Assessment: 51yM with aneurysmal SAH, post-bleed day 22, s/p basilar artery coiling 10/05. S/p IA Verapamil 10/15 and 10/19 for cerebral vasospasm. There is some improvement in encephalopathy, acute hypoxic respiratory failure. Resolving sepsis. critically ill. Now in possible cerebral salt wasting. Continue salt tabs, 3% saline, florinef, and NS 150 ml per hour. strict I/Os. TCDs per N/S. s/p Trach 10/23 and PEG 10/24. Also continues to grow Enterobacter in the sputum , but now developing resistance. Will narrow abx therapy and set full course of abx. Plan: Neuro: Acute encephalopathy Basilar Aneurysm Aneurysmal Subarachnoid bleed 10/05 Cerebral Vasospasm - Núñez Veliz 5 Lucas grade 3 - Nimodipine. Status post intra-arterial verapamil for vasospasm on 10/15, 10/19 - Pravachol - SBP 160 - 180 given recent cerebral vasospasm. Levophed at 6 mcg/min - TCD's per N/S Dr Mace - Basilar tip coiled. - s/p angio with IA verapamil 10/15, 10/19 - goal euvolemia - Neuro exam improving, weakly following commands all 4 ext intermittently Respiratory: Acute Hypoxic and Hypercarbic Respiratory Failure - Intubated for airway protection - s/p trach 10/23 now on CPAP/intermittent TP - DuoNeb's as needed for wheezing CV: Inadequate Cerebral Perfusion Septic Shock- resolving. - goal SBP 160- 180 given recent cerebral vasospasm. - Levophed for target blood pressure for cerebral perfusion. Renal: Possible Cerebral Salt Wasting - UO has decreased now to normal range. 3250 in 24 hours - Goal euvolemia - Paul for accurate I/Os Strict I/Os - NaCl tabs 3gm q8h - Florinef 0.2mg q12h - NS @ 150-cc/hr - strict I/Os q1h - urine studies 10/21 consistent with cerebral salt wasting: at that time was patient intravascularly hypovolemic on clinical exam - NaCl boluses as needed to maintain euvolemia. FEN/GI: Acute Protein Calorie Malnutrition- mild -- vital high protein 40mL/hr. -- daily BMP -- ICU electrolyte protocol. Heme/ID: Fever Leukocytosis prior UTI -- s/p full course abx -- 10/20 sputum culture- enterobacter, some reistance. sensitive to Cefepime. -- 10/20 urine culture- NGTD -- 10/20 CSF: 0 wbc, glu 111, prot 27.8, culture NGTD -- 10/20 Blood cx: NGTD -- 10/21 CSF: NGTD. -- Dr. Mace d/c EVD 10/21 -- d/c d vancomycin and flagyl. -- Continue cefepime 2gm iv q8hr for total 10 day course given early resistance of bacteria. anticipated stop date 10/29 Endocrine: Hyperglycemia of critical illness -- SSI Prophylaxis: - Teds SCDs - started Lovenox per nsgy 10/23/16 - Protonix IV Dispo: remain in the ICU. he remains critically ill. CCT 30 Problem Qualifiers (1) Hypertension: Qualified Code: I10 - Essential hypertension James Dumont MD Oct 28, 2016 15:36
[2016-10-28] MEDS: NOREPINEPHRINE INJ 4 MG in SODIUM CHLOR 0.9% 250 ML INJ 250 ML IV SCH ×2 (16:58→20:14)
[2016-10-28] MEDS: RESP: ALBUTEROL 2.5 MG/IPRATROPIUM 0.5 MG NEB (PRN) INH (20:08)
[2016-10-28] MEDS: ENOXAPARIN SODIUM 40 MG/0.4 ML SYRINGE SQ SCH (20:15)
[2016-10-28] MEDS: ACETAMINOPHEN 325 MG TAB PO PRN (22:17)
--- NOTE | 2016-10-28 23:00 | RADRPT ---
EXAM DATE/TIME: 10/28/2016 22:26 [facility] COMPARISON: CHEST SINGLE AP, October 23, 2016, 11:18. INDICATIONS : Shortness of breath MEDICAL HISTORY : Hypertension. SURGICAL HISTORY : None. ENCOUNTER: Initial ACUITY: 1 day PAIN SCORE: Non-responsive. LOCATION: Bilateral chest FINDINGS: There is a tracheostomy tube and right PICC line in good position. The heart size is normal. The kylie gs are grossly clear. CONCLUSION: Tracheostomy tube and PICC line in good position. Tim Garcia MD on October 28, 2016 at 22:51 Board Certified Radiologist. This report was verified electronically.
[2016-10-29] VITALS (16 sets, daily range): BP systolic 138–150; BP diastolic 83–94; PULSE 89–114; RESP 11–34; TEMP 97–98.8; O2SAT 95–100
[2016-10-29] MEDS: SODIUM CHLOR 0.9% 1000 ML INJ 1,000 ML IV SCH ×4 (01:06→18:28)
[2016-10-29] MEDS: CHLORHEXIDINE GLUCONATE 2 % 1 PACK (2 CLOTHS) TOP SCH (03:28)
[2016-10-29] MEDS: DOCUSATE SODIUM 100 MG CAP G-TUBE SCH ×2 (03:29→16:00)
[2016-10-29] MEDS: CEFEPIME INJ 2,000 MG in SODIUM CHLORIDE 0.9% INJ 100 ML IV SCH ×3 (04:38→21:00)
[2016-10-29] MEDS: SODIUM CHLORIDE 1 GRAM TAB PO SCH ×3 (05:16→20:55)
[2016-10-29 05:17] LABS: BICARBONATE 28.2 MEQ/L (21.0-32.0); CREATININE 0.7 MG/DL (0.60-1.30)
[2016-10-29] MEDS: 3% SALINE INJ 500 ML IV SCH ×2 (05:25→20:54)
[2016-10-29] MEDS: INSULIN NovoLIN REGULAR SUPPLEMENTAL SCALE SQ SCH ×4 (06:00→18:00)
[2016-10-29] MEDS: POTASSIUM CHLOR 40 MEQ PREMIX 100 ML IV PRN ×3 (07:01→22:15)
[2016-10-29] MEDS: POLYETHYLENE GLYCOL 17 GM PKG PO SCH (08:33)
[2016-10-29] MEDS: PANTOPRAZOLE SODIUM 40 MG VIAL IV SCH (08:42)
[2016-10-29] MEDS: FLUDROCORTISONE ACETATE 0.1 MG TAB PO SCH ×2 (08:42→20:55)
[2016-10-29] MEDS: ARTIFICIAL TEARS OPTH SOLN 15 ML BTL EACH EYE SCH ×3 (08:42→18:00)
[2016-10-29] MEDS: PRAVASTATIN SOD 40 MG TAB PO SCH (08:42)
[2016-10-29] MEDS: SODIUM CHLORIDE 0.9% FLUSH 10 ML FLUSH IV FLUSH SCH (08:42)
[2016-10-29] MEDS: LACTULOSE SYRUP 20 GM/30 ML CUP PO SCH (08:42)
[2016-10-29] MEDS: levETIRAcetam INJ 500 MG in SODIUM CHLORIDE 0.9% INJ 100 ML IV SCH ×2 (08:42→20:54)
--- NOTE | 2016-10-29 12:06 | HHI.NSPN ---
Note Status Status: Progress Note Interval History Interval History 51 year old male presents with being brought in as a trauma alert due to a head injury with altered mental status and a diminished GCS. The patient was in the bathroom and fell and hit his head. This was an unwitnessed fall. According to the patient's the patient had been unresponsive for approximately 15 minutes by the time ambulance services arrived. When they arrived the patient was noted to be a GCS of 14, however his mentation would wax and wane and go down as low as 3 again. On arrival to the emergency department he felt extremely nauseated. The CT of the head revealed diffuse subarachnoid bleed. Emergently intubated in the trauma bay. Possible seizure activity. Intubated in the emergency room. 10/05/16: Endovascular coiling 10/07/16 rinse intubated and sedated. Ventriculostomy in place 10/09/16: Remains intubated and sedated. Increased agitation with attempts at sedation vacation 10/17/16: Pupils 2 mm. Intubated and sedated. Somewhat more responsive with decreased sedation. External ventricular drain and closed to reservoir again today. 10/19/16: TCD with vasospasm, to angio with 10 mg Verapamil IA given. 10/20/16: Patient with fevers up to 102.8 per Nursing and cultures sent, Nursing reports CSF milky & with sediment. TCD being repeated this afternoon due to vast difference from that done this morning and yesterday. Chimney Supervisor Brick increased SBP parameters to 180-200 mm Hg to help overcome vasospasms. No increase in ICP. 10/21/16: Still with elevated temp but not as high. TCD yesterday demonstrated resolution of vasospasms but today it demonstrated a right SRI vasospasm. Patient with facial grimacing and attempted eye opening. CSF specimen sent yesterday w/o any organisms or WBCs seen on Gram stain. 10/23/16: Trach done 10/24/16: PEG done at bedside prior to being seen. Nursing reports prior to sedation he was following commands to all extremities although right was weaker. Mild vasospasm per TCD. 10/25/16: No evident distress. Noted to move BLE & slight LUE spontaneously. Did open eyes partially after having been stimulated. TCD being done. 10/26/16: No evident distress, attempted eye opening to verbal & attempted to follow some commands, some spontaneous movements noted BLE & LUE. TCD being done. 10/27/16: No apparent distress, no eye opening, follows some commands. 10/28/16: Remains tracheed, NAD, follows some commands, spontaneous movement of BLE & LUE noted 10/29/16: Remains stable follows some commands, spontaneous movement of BLE & LUE noted Labs, Micro, & Vital Signs Results Date Time Temp Pulse Resp B/P Pulse Ox O2 Delivery O2 Flow Rate FiO2 10/29/16 11:15 98 T-piece 40 10/29/16 10:00 94 10/29/16 10:00 98 35 10/29/16 08:00 103 10/29/16 08:00 96 Mechanical Ventilator 35 10/29/16 08:00 98.6 103 11 150/87 96 10/29/16 08:00 35 10/29/16 06:00 94 10/29/16 06:00 35 10/29/16 05:00 35 10/29/16 04:00 97.5 89 15 144/94 100 10/29/16 04:00 35 10/29/16 04:00 89 10/29/16 03:54 100 35 10/29/16 02:00 96 10/29/16 00:00 35 10/29/16 00:00 110 10/29/16 00:00 98.6 110 18 149/88 100 10/28/16 23:53 100 35 10/28/16 22:00 119 10/28/16 21:42 97 35 10/28/16 20:08 100 35 10/28/16 20:00 99.0 100 33 180/104 100 Arterial Line 10/28/16 20:00 101 10/28/16 20:00 35 10/28/16 19:00 100 Mechanical Ventilator 10/28/16 16:06 100 35 10/28/16 16:00 35 10/28/16 16:00 98.4 78 23 169/86 100 10/28/16 16:00 78 10/28/16 14:00 94 10/28/16 12:23 99 35 10/28/16 12:00 35 10/28/16 12:00 82 10/28/16 12:00 99.3 82 19 173/99 99 10/29/16 07:00 Intake Total 5380 ml Output Total 4750 ml Balance 630 ml Constitutional Vital Signs Date Time Temp Pulse Resp B/P Pulse Ox O2 Delivery O2 Flow Rate FiO2 10/29/16 11:15 98 T-piece 40 10/29/16 10:00 94 10/29/16 10:00 98 35 10/29/16 08:00 103 10/29/16 08:00 96 Mechanical Ventilator 35 10/29/16 08:00 98.6 103 11 150/87 96 10/29/16 08:00 35 10/29/16 06:00 94 10/29/16 06:00 35 10/29/16 05:00 35 10/29/16 04:00 97.5 89 15 144/94 100 10/29/16 04:00 35 10/29/16 04:00 89 10/29/16 03:54 100 35 10/29/16 02:00 96 10/29/16 00:00 35 10/29/16 00:00 110 10/29/16 00:00 98.6 110 18 149/88 100 10/28/16 23:53 100 35 10/28/16 22:00 119 10/28/16 21:42 97 35 10/28/16 20:08 100 35 10/28/16 20:00 99.0 100 33 180/104 100 Arterial Line 10/28/16 20:00 101 10/28/16 20:00 35 10/28/16 19:00 100 Mechanical Ventilator 10/28/16 16:06 100 35 10/28/16 16:00 35 10/28/16 16:00 98.4 78 23 169/86 100 10/28/16 16:00 78 10/28/16 14:00 94 10/28/16 12:23 99 35 10/28/16 12:00 35 10/28/16 12:00 82 10/28/16 12:00 99.3 82 19 173/99 99 10/29/16 07:00 Intake Total 5380 ml Output Total 4750 ml Balance 630 ml Review of Systems/Exam Exam Resp: Respirations CTAB w/o W/R/R, equal excursion, non-laboured, trached & mechanically ventilated. CV: RRR w/o M/G/R, radial & pedal pulses 2+ bilaterally, cap refill < 2 sec. Monitor is sinus rhythm w/o any ectopy noted GI: Abdomen distended, bowel sounds all quads, PEG tube LUQ with enteral feeds at 40 mL/hr. : Paul cath to BSD. Neuro: No evident attempt to open eyes to stimuli, PERRLA 5 to 3 mm bilaterally , EOM intact, conjugate gaze. Spontaneous movement of BLE & LUE, hand editorial specialist with left hand but none to right, moves left foot when asked to wiggle toes. Facial grimacing to noxious stimuli to RUE. Ventriculostomy incision site dry w/o any evident drainage, erythema or streaking. Medical Decision Making MDM Remarks MDM Remarks 1. Stable neurologic function 2. 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 Left basal ganglia region CVA primarily per CT Plan Plan Remarks Activity OOB to cardiac chair Replace sodium per Surgical Chimney Supervisor Brick Continue abx per Surgical Chimney Supervisor Brick Continue SBP 160-180 mm Hg per Surgical Chimney Supervisor Brick Continue Keppra for probable seizure activity Okay for Lovenox from NSGY standpoint Ulcer prophylaxis Jose Rm MD Oct 29, 2016 12:06
[2016-10-29] MEDS: ACETAMINOPHEN 325 MG TAB PO PRN (12:56)
--- NOTE | 2016-10-29 15:06 | HHI.CCPN ---
Subjective Remarks/Hospital Course 51 year old male presents with being brought in as a trauma alert due to a head injury with altered mental status and a diminished GCS. The patient was in the bathroom and fell and hit his head. This was an unwitnessed fall. According to the patient's the patient had been unresponsive for approximately 15 minutes by the time ambulance services arrived. When they arrived the patient was noted to be a GCS of 14, however his mentation would wax and wane and go down as low as 3 again. On arrival to the emergency department he felt extremely nauseated. The CT of the head revealed diffuse subarachnoid bleed. 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 CT head today with some ventricular blood. ICP controlled and patient tolerates lightening of sedation. Volume loaded to maintain SBP > 130s. Opens eyes to voice. 10/07: BP controlled. TCDs to be done today. 10/08: BP control good. Well hydrated. No TCD evidence of spasm. 10/09: TCD today pending. CPP good. No seizure activity. Remains well hydrated. 10/10: TCDs no vasospasm. Remains well hydrated, well perfused. Some peripheral edema as expected. 10/11: Hemodynamics good. Bladder spasm continues. Try Flomax - an alpha kendall , will not impair cerebral vessels. 10/12: Episode of sepsis last night from obstructed Paul, JONH evident. Much improved now. 10/13: JONH improving. Narrow abx to GNR. 10/14: Aztreonam started for sputum, urine. CT Head acceptable. 10/15: No change in neuro status. BP control good. 10/16: Remains sedated, orally intubated on mechanical ventilation. Ventriculostomy in place. Underwent angiogram with injection of verapamil intra -arterial for minimal vasospasm on 10/15 10/17: Remains sedated, orally intubated on mechanical ventilation. Ventriculostomy drained 65 cc over 8 hours overnight. 10/18: off sedation. withdraws to pain. does not follow commands. per nursing, this is an exam change and he was previously following commands. 10/19: continues off sedation. ICP stable around 5. neuro exam stable. TCDs yesterday with questionable early spasm, but given stable neuro exam, decided to repeat TCD today to eval trend. 10/20: off sedation. taken yesterday for angio with IA verapamil for left MCA, SRI spasm. 10/21: spiked fever yesterday, white cultured. empirically started on broad spectrum abx. CSF sent for culture. initial CSF appeared cloudy but cell count and gram stain reassuring. TCDs yesterday without evidence of vasospasm. this AM sodium dropped from 147 to 139 with net -1L. likely early salt wasting, although up to this point urine studies have not shown concern for this up to now. 10/22: uop increased and sodium continues to downtrend despite salt tabs and ivf. still net -1L. urine studies concerning for salt wasting. sputum with enterobacter. neuro exam still stable. TCDs today without overt evidence of spasm. 10/23: still salt wasting. net -500cc/24h. aggressively replacing volume loss and sodium. TCDs today without any evidence of spasm and PI/LI now down to normal ranges. talked with Dr. Prater and while we have a window without spasm, will proceed with tracheostomy today. Likely PEG tube tomorrow. stable neurologic exam. 10/24: Na today 149, 3% at 10 ml per hour. s/p PEG today and still under heavy sedation. Was following commands to RN prior to receiving propofol for sedation. Trach done yesterday. -00603 UO , getting IVF replacement 10/25: continues to have high UO 12L in 24 hours. D/w Dr. Mace -probably antidiuresis. Na 145. Remains on NS at 150 ml per hour and 3% at 10 ml per hour (increased 3% to 20 ml pr hour)/ weekly following commands in all 4 extremities , partial eye opening to command. Remains on Levophed at 8 mcg per min 10/26: Slightly less responsive today, getting TCDs. UO 7L -decreased from yesterday. Na 144 today. Remains on 8 mcg/min of Levophed to maintain cerebral perfusion. SUBJECTIVE 10/27: Currently on T piece. Remains somnolent. Intermittently follows commands for the nurses. Remains on 1.5 mcg/min Levophed to maintain cerebral perfusion 10/28/16: Remains on CPAP today. Followed commands in upper extremities for RN today. More somnolent and not following commands to me. On 6 mcg per min of Levophed to maintain CPP 10/29/16: Tolerating T piece 2-3 hours a day. Currently on T piece. Somnolent. Patient did follow commands earlier for the nurse. Na 146. UO normalizing Objective Vital Signs Date Time Temp Pulse Resp B/P Pulse Ox O2 Delivery O2 Flow Rate FiO2 10/29/16 14:00 97 10/29/16 12:00 98.8 27 145/89 95 10/29/16 11:15 T-piece 40 10/27/16 10:15 6.00 Intake and Output 10/28/16 10/28/16 10/29/16 08:00 16:00 00:00 Intake Total 1383 ml 2222 ml 1599 ml Output Total 1200 ml 2000 ml 2000 ml Balance 183 ml 222 ml -401 ml Result Diagram: 10/27/16 0557 10/29/16 0430 Imaging Last 24 hours Impressions Transcranial Doppler Study Complete 10/23/16 0700 Signed Impressions: Service Date/Time: Sunday, October 23, 2016 07:36 - CONCLUSION: Normal Lindegaard and Gregorio ratios, spasm is not suspected. Tim Garcia MD Objective Remarks GENERAL: Middle-aged male lying in bed, s/p trach SKIN: Dry. HEAD: Normocephalic. EYES: Pupils are 2 mm and reactive bilaterally. NECK: Supple, trachea midline. CARDIOVASCULAR: Regular rate and rhythm. No JVD. RESPIRATORY:On CPAP, Breath sounds equal bilaterally. Clear, no wheezes or crackles. Good bilateral excursions. GASTROINTESTINAL: Abdomen soft, non-tender, nondistended. BS active. No guarding. EXTREMITIES: Nonfocal clubbing cyanosis or edema, well perfused. NEURO: No eye opening to command. Intermittently follows commands in lower extremities to RN. Withdraws to pain Urinary Catheter: Yes Assessment to: Continue A/P Problem List: (1) 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 ICD Code: I60.8 Status: Acute (2) Intracranial hemorrhage ICD Code: I62.9 Status: Acute (3) Hypertension ICD Code: I10 Status: Acute Assessment and Plan Assessment: 51yM with aneurysmal SAH, post-bleed day 22, s/p basilar artery coiling 10/05. S/p IA Verapamil 10/15 and 10/19 for cerebral vasospasm. There is some improvement in encephalopathy, acute hypoxic respiratory failure. Resolving sepsis. critically ill. Now in possible cerebral salt wasting. Continue salt tabs, 3% saline, florinef, and NS 150 ml per hour. strict I/Os. TCDs per N/S. s/p Trach 10/23 and PEG 10/24. Also continues to grow Enterobacter in the sputum , but now developing resistance. Will narrow abx therapy and set full course of abx. Plan: Neuro: Acute encephalopathy Basilar Aneurysm Aneurysmal Subarachnoid bleed 10/05 Cerebral Vasospasm - Núñez Veliz 5 Lucas grade 3 - Nimodipine. Status post intra-arterial verapamil for vasospasm on 10/15, 10/19 - Pravachol - SBP target reduced by Dr. Mace to 120-160. Off levophed now - TCD's per N/S Dr Mace - Basilar tip coiled. - s/p angio with IA verapamil 10/15, 10/19 - goal euvolemia - Neuro exam improving, weakly following commands all 4 ext intermittently Respiratory: Acute Hypoxic and Hypercarbic Respiratory Failure - Intubated for airway protection - s/p trach 10/23 now on CPAP/intermittent TP - tolerating TP 2-3 hours per day - DuoNeb's as needed for wheezing CV: Inadequate Cerebral Perfusion Septic Shock- resolving. - goal SBP 160- 180 given recent cerebral vasospasm. - Levophed for target blood pressure for cerebral perfusion. Renal: Possible Cerebral Salt Wasting - UO has decreased now to normal range. 3250 in 24 hours - Goal euvolemia - Paul for accurate I/Os Strict I/Os - NaCl tabs 3gm q8h - Florinef 0.2mg q12h - NS @ 150-cc/hr - strict I/Os q1h - urine studies 10/21 consistent with cerebral salt wasting: at that time was patient intravascularly hypovolemic on clinical exam - NaCl boluses as needed to maintain euvolemia. FEN/GI: Acute Protein Calorie Malnutrition- mild -- vital high protein 40mL/hr. -- daily BMP -- ICU electrolyte protocol. Heme/ID: Fever Leukocytosis prior UTI -- s/p full course abx -- 10/20 sputum culture- Enterobacter, some resistance. sensitive to Cefepime. -- 10/20 urine culture- NGTD -- 10/20 CSF: 0 wbc, glu 111, prot 27.8, culture NGTD -- 10/20 Blood cx: NGTD -- 10/21 CSF: NGTD. -- Dr. Mace d/c EVD 10/21 -- d/c d vancomycin and Flagyl. -- Continue cefepime 2gm iv q8hr for total 10 day course given early resistance of bacteria. anticipated stop date 10/29, repeat sputum cx GNR, ID pending Endocrine: Hyperglycemia of critical illness -- SSI Prophylaxis: - Teds SCDs - Started Lovenox per nsg 10/23/16 - Protonix IV Dispo: remain in the ICU. he remains critically ill. Level 3 Problem Qualifiers (1) Hypertension: Qualified Code: I10 - Essential hypertension James Dumont MD Oct 29, 2016 15:05
[2016-10-29] MEDS: ENOXAPARIN SODIUM 40 MG/0.4 ML SYRINGE SQ SCH (20:54)
[2016-10-29] MEDS: POTASSIUM CHLOR 20 MEQ PREMIX 100 ML IV PRN (20:57)
[2016-10-30] VITALS (16 sets, daily range): BP systolic 144–161; BP diastolic 84–93; PULSE 82–107; RESP 18–28; TEMP 97.5–98.8; O2SAT 97–100
[2016-10-30] MEDS: POTASSIUM CHLORIDE 25 MEQ EFFERVESCENT TAB PO PRN ×2 (00:58→05:12)
[2016-10-30] MEDS: SODIUM CHLOR 0.9% 1000 ML INJ 1,000 ML IV SCH ×3 (01:08→20:00)
[2016-10-30] MEDS: CHLORHEXIDINE GLUCONATE 2 % 1 PACK (2 CLOTHS) TOP SCH (04:00)
[2016-10-30] MEDS: POTASSIUM CHLOR 40 MEQ PREMIX 100 ML IV PRN (05:12)
[2016-10-30] MEDS: DOCUSATE SODIUM 100 MG CAP G-TUBE SCH ×2 (05:12→14:59)
[2016-10-30] MEDS: INSULIN NovoLIN REGULAR SUPPLEMENTAL SCALE SQ SCH ×3 (06:00→12:00)
[2016-10-30] MEDS: SODIUM CHLORIDE 1 GRAM TAB PO SCH ×3 (06:25→21:13)
[2016-10-30] MEDS: ARTIFICIAL TEARS OPTH SOLN 15 ML BTL EACH EYE SCH ×3 (09:00→17:45)
[2016-10-30] MEDS: LACTULOSE SYRUP 20 GM/30 ML CUP PO SCH (09:00)
[2016-10-30] MEDS: POLYETHYLENE GLYCOL 17 GM PKG PO SCH (09:00)
[2016-10-30] MEDS: SODIUM CHLORIDE 0.9% FLUSH 10 ML FLUSH IV FLUSH SCH (09:00)
[2016-10-30] MEDS: PANTOPRAZOLE SODIUM 40 MG VIAL IV SCH (09:26)
[2016-10-30] MEDS: levETIRAcetam INJ 500 MG in SODIUM CHLORIDE 0.9% INJ 100 ML IV SCH ×2 (09:26→20:01)
[2016-10-30] MEDS: FLUDROCORTISONE ACETATE 0.1 MG TAB PO SCH ×2 (09:26→20:01)
[2016-10-30] MEDS: PRAVASTATIN SOD 40 MG TAB PO SCH (09:26)
[2016-10-30] MEDS: LABETALOL HCL 100 MG/20 ML VIAL IV PUSH PRN (11:11)
--- NOTE | 2016-10-30 12:58 | HHI.CCPN ---
Subjective Remarks/Hospital Course 51 year old male presents with being brought in as a trauma alert due to a head injury with altered mental status and a diminished GCS. The patient was in the bathroom and fell and hit his head. This was an unwitnessed fall. According to the patient's the patient had been unresponsive for approximately 15 minutes by the time ambulance services arrived. When they arrived the patient was noted to be a GCS of 14, however his mentation would wax and wane and go down as low as 3 again. On arrival to the emergency department he felt extremely nauseated. The CT of the head revealed diffuse subarachnoid bleed. 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 CT head today with some ventricular blood. ICP controlled and patient tolerates lightening of sedation. Volume loaded to maintain SBP > 130s. Opens eyes to voice. 10/07: BP controlled. TCDs to be done today. 10/08: BP control good. Well hydrated. No TCD evidence of spasm. 10/09: TCD today pending. CPP good. No seizure activity. Remains well hydrated. 10/10: TCDs no vasospasm. Remains well hydrated, well perfused. Some peripheral edema as expected. 10/11: Hemodynamics good. Bladder spasm continues. Try Flomax - an alpha kendall , will not impair cerebral vessels. 10/12: Episode of sepsis last night from obstructed Paul, JONH evident. Much improved now. 10/13: JONH improving. Narrow abx to GNR. 10/14: Aztreonam started for sputum, urine. CT Head acceptable. 10/15: No change in neuro status. BP control good. 10/16: Remains sedated, orally intubated on mechanical ventilation. Ventriculostomy in place. Underwent angiogram with injection of verapamil intra -arterial for minimal vasospasm on 10/15 10/17: Remains sedated, orally intubated on mechanical ventilation. Ventriculostomy drained 65 cc over 8 hours overnight. 10/18: off sedation. withdraws to pain. does not follow commands. per nursing, this is an exam change and he was previously following commands. 10/19: continues off sedation. ICP stable around 5. neuro exam stable. TCDs yesterday with questionable early spasm, but given stable neuro exam, decided to repeat TCD today to eval trend. 10/20: off sedation. taken yesterday for angio with IA verapamil for left MCA, SRI spasm. 10/21: spiked fever yesterday, white cultured. empirically started on broad spectrum abx. CSF sent for culture. initial CSF appeared cloudy but cell count and gram stain reassuring. TCDs yesterday without evidence of vasospasm. this AM sodium dropped from 147 to 139 with net -1L. likely early salt wasting, although up to this point urine studies have not shown concern for this up to now. 10/22: uop increased and sodium continues to downtrend despite salt tabs and ivf. still net -1L. urine studies concerning for salt wasting. sputum with enterobacter. neuro exam still stable. TCDs today without overt evidence of spasm. 10/23: still salt wasting. net -500cc/24h. aggressively replacing volume loss and sodium. TCDs today without any evidence of spasm and PI/LI now down to normal ranges. talked with Dr. Prater and while we have a window without spasm, will proceed with tracheostomy today. Likely PEG tube tomorrow. stable neurologic exam. 10/24: Na today 149, 3% at 10 ml per hour. s/p PEG today and still under heavy sedation. Was following commands to RN prior to receiving propofol for sedation. Trach done yesterday. -[id number] UO , getting IVF replacement 10/25: continues to have high UO 12L in 24 hours. D/w Dr. Mace -probably antidiuresis. Na 145. Remains on NS at 150 ml per hour and 3% at 10 ml per hour (increased 3% to 20 ml pr hour)/ weekly following commands in all 4 extremities , partial eye opening to command. Remains on Levophed at 8 mcg per min 10/26: Slightly less responsive today, getting TCDs. UO 7L -decreased from yesterday. Na 144 today. Remains on 8 mcg/min of Levophed to maintain cerebral perfusion. SUBJECTIVE 10/27: Currently on T piece. Remains somnolent. Intermittently follows commands for the nurses. Remains on 1.5 mcg/min Levophed to maintain cerebral perfusion 10/28/16: Remains on CPAP today. Followed commands in upper extremities for RN today. More somnolent and not following commands to me. On 6 mcg per min of Levophed to maintain CPP 10/29/16: Tolerating T piece 2-3 hours a day. Currently on T piece. Somnolent. Patient did follow commands earlier for the nurse. Na 146. UO normalizing 10/30: More awake today with partial eye opening. Followed commands all 4 ext. Na 148. Will stop 3% saline Objective Vital Signs Date Time Temp Pulse Resp B/P Pulse Ox O2 Delivery O2 Flow Rate FiO2 10/30/16 11:44 100 35 10/30/16 06:00 86 10/30/16 04:00 97.5 25 144/84 10/29/16 20:18 T-piece 6.00 Intake and Output 10/29/16 10/29/16 10/30/16 08:00 16:00 00:00 Intake Total 1559 ml 1545 ml 1866 ml Output Total 750 ml 1150 ml 1850 ml Balance 809 ml 395 ml 16 ml Result Diagram: 10/27/16 0557 10/30/16 0930 Imaging Last 24 hours Impressions Transcranial Doppler Study Complete 10/23/16 0700 Signed Impressions: Service Date/Time: Sunday, October 23, 2016 07:36 - CONCLUSION: Normal Lindegaard and Gregorio ratios, spasm is not suspected. Tim Garcia MD Objective Remarks GENERAL: Middle-aged male lying in bed, s/p trach. +partial eye opening SKIN: Dry. HEAD: Normocephalic. EYES: Pupils are 2 mm and reactive bilaterally. NECK: Supple, trachea midline. CARDIOVASCULAR: Regular rate and rhythm. No JVD. RESPIRATORY:On CPAP, Breath sounds equal bilaterally. Clear, no wheezes or crackles. Good bilateral excursions. GASTROINTESTINAL: Abdomen soft, non-tender, nondistended. BS active. No guarding. EXTREMITIES: Nonfocal clubbing cyanosis or edema, well perfused. NEURO: Partial eye opening to sternal rub. Follows commands in bilateral upper and lower extremities. Withdraws to pain Urinary Catheter: Yes Assessment to: Continue A/P Problem List: (1) 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 ICD Code: I60.8 Status: Acute (2) Intracranial hemorrhage ICD Code: I62.9 Status: Acute (3) Hypertension ICD Code: I10 Status: Acute Assessment and Plan Assessment: 51yM with aneurysmal SAH, post-bleed day 23, s/p basilar artery coiling 10/05. S/p IA Verapamil 10/15 and 10/19 for cerebral vasospasm. There is some improvement in encephalopathy, acute hypoxic respiratory failure. Resolving sepsis. critically ill. Now in possible cerebral salt wasting. Continue salt tabs, 3% saline, florinef, and NS 150 ml per hour. strict I/Os. TCDs per N/S. s/p Trach 10/23 and PEG 10/24. Also continues to grow Enterobacter in the sputum , but now developing resistance. Will narrow abx therapy and set full course of abx. Plan: Neuro: Acute encephalopathy Aneurysmal Subarachnoid bleed 10/05, Basilar Aneurysm Cerebral Vasospasm - Núñez Veliz 5 Lucas grade 3 - Nimodipine. Status post intra-arterial verapamil for vasospasm on 10/15, 10/19 - Pravachol - SBP target reduced by Dr. Mace to 120-160. - TCD's per N/S Dr Mace. No recent vasospasm - Basilar tip coiled. - s/p angio with IA verapamil 10/15, 10/19 - goal euvolemia - Neuro exam improving, weakly following commands all 4 ext Respiratory: Acute Hypoxic and Hypercarbic Respiratory Failure - Intubated for airway protection - s/p trach 10/23 now on CPAP/intermittent TP - Tolerating TP 2-3 hours per day - DuoNeb's as needed for wheezing CV: Septic Shock- resolved. - goal SBP 120-[address] mace - Off Levophed Renal: Possible Cerebral Salt Wasting - UO has decreased now to normal range. About 4L in 24 hours - Goal euvolemia - Paul for accurate I/Os Strict I/Os - NaCl tabs 3gm q8h - Florinef 0.2mg q12h - NS @ 150-cc/hr reduce to 120 ml per hour 10/30. DC 3% - strict I/Os q1h - urine studies 10/21 consistent with cerebral salt wasting: at that time was patient intravascularly hypovolemic on clinical exam - NaCl boluses as needed to maintain euvolemia. FEN/GI: Acute Protein Calorie Malnutrition- mild -- vital high protein 40mL/hr. -- daily BMP -- ICU electrolyte protocol. Heme/ID: Fever Leukocytosis prior UTI -- s/p full course abx -- 10/20 sputum culture- Enterobacter, some resistance. sensitive to Cefepime. -- 10/20 urine culture- NGTD -- 10/20 CSF: 0 wbc, glu 111, prot 27.8, culture NGTD -- 10/20 Blood cx: NGTD -- 10/21 CSF: NGTD. -- Dr. Mace d/c EVD 10/21 -- d/c d vancomycin and Flagyl. -- Anticipated completion of 10 day course of cefepime 2gm iv q8hr was 10/29, repeat sputum cx GNR, ID pending. Continue cefepime for now Endocrine: Hyperglycemia of critical illness -- SSI Prophylaxis: - Teds SCDs - Started Lovenox per nsg 10/23/16 - Protonix IV Dispo: remain in the ICU. he remains critically ill. Level 3 Problem Qualifiers (1) Hypertension: Qualified Code: I10 - Essential hypertension James Dumont MD Oct 30, 2016 12:58
[2016-10-30] MEDS: POTASSIUM CHLOR 20 MEQ PREMIX 100 ML IV PRN ×4 (13:40→20:02)
[2016-10-30] MEDS: CEFEPIME INJ 2,000 MG in SODIUM CHLORIDE 0.9% INJ 100 ML IV SCH ×2 (13:41→21:13)
--- NOTE | 2016-10-30 14:25 | RADRPT ---
EXAM DATE/TIME: 10/30/2016 13:16 [facility] COMPARISON: CHEST SINGLE AP, October 28, 2016, 22:26. INDICATIONS : Evaluate lung status. MEDICAL HISTORY : Hypertension. SURGICAL HISTORY : None. ENCOUNTER: Initial ACUITY: 1 day PAIN SCORE: Non-responsive. LOCATION: Bilateral chest FINDINGS: Single AP view of the chest. Tracheostomy tube remains in place. Mild hazy opacity in the left mid to lower lung zone. Right lung clear. Right-sided PICC line in place. No pleural effusion or pneumothor ax. CONCLUSION: Mild hazy opacity left mid to lower lung zone indicating atelectasis versus mild consolidation. Rogelio Ramirez MD on October 30, 2016 at 14:23 Board Certified Radiologist. This report was verified electronically.
[2016-10-30] MEDS: ENOXAPARIN SODIUM 40 MG/0.4 ML SYRINGE SQ SCH (20:01)
[2016-10-31] VITALS (18 sets, daily range): BP systolic 138–177; BP diastolic 80–99; PULSE 80–110; RESP 16–34; TEMP 97.5–98.1; O2SAT 34–100
[2016-10-31] MEDS: DOCUSATE SODIUM 100 MG CAP G-TUBE SCH (04:00)
[2016-10-31] MEDS: CHLORHEXIDINE GLUCONATE 2 % 1 PACK (2 CLOTHS) TOP SCH (04:00)
[2016-10-31] MEDS: SODIUM CHLOR 0.9% 1000 ML INJ 1,000 ML IV SCH ×3 (04:48→20:29)
[2016-10-31] MEDS: CEFEPIME INJ 2,000 MG in SODIUM CHLORIDE 0.9% INJ 100 ML IV SCH ×3 (06:32→20:11)
[2016-10-31] MEDS: SODIUM CHLORIDE 1 GRAM TAB PO SCH ×3 (06:32→20:11)
[2016-10-31 06:48] LABS: AUTOMATED NEUTROPHIL # 4.1 TH/MM3 (1.8-7.7); BASOPHIL % 0.4 % (0.0-2.0); EOSINOPHIL # 0.2 TH/MM3 (0-0.4); EOSINOPHIL % 2.9 % (0.0-4.0); LYMPH % 14.8 % (9.0-44.0); LYMPHOCYTE # 0.8 TH/MM3 (1.0-4.8); MEAN CELL VOLUME 89.1 FL (80.0-100.0); MEAN CORPUSCULAR HEMOGLOBIN 30.3 PG (27.0-34.0); MONO % 7.7 % (0.0-8.0); MONOCYTE # 0.4 TH/MM3 (0-0.9); NEUT % 74.2 % (16.0-70.0); PLATELET COUNT 134 TH/MM3 (150-450); RED BLOOD COUNT 2.32 MIL/MM3 (4.50-5.90); RED CELL DISTRIBUTION WIDTH 13.5 % (11.6-17.2); WHITE BLOOD COUNT 5.5 TH/MM3 (4.0-11.0)
[2016-10-31 07:08] LABS: HEMATOCRIT 20.6 % (39.0-51.0)
[2016-10-31] MEDS: PANTOPRAZOLE SODIUM 40 MG VIAL IV SCH (09:15)
[2016-10-31] MEDS: FLUDROCORTISONE ACETATE 0.1 MG TAB PO SCH ×2 (09:15→20:10)
[2016-10-31] MEDS: PRAVASTATIN SOD 40 MG TAB PO SCH (09:15)
[2016-10-31] MEDS: levETIRAcetam INJ 500 MG in SODIUM CHLORIDE 0.9% INJ 100 ML IV SCH ×2 (09:16→20:16)
[2016-10-31] MEDS: SODIUM CHLORIDE 0.9% FLUSH 10 ML FLUSH IV FLUSH SCH (09:16)
[2016-10-31] MEDS: POTASSIUM CHLOR 20 MEQ PREMIX 100 ML IV PRN ×4 (09:16→16:39)
[2016-10-31] MEDS: ARTIFICIAL TEARS OPTH SOLN 15 ML BTL EACH EYE SCH ×3 (09:17→17:24)
--- NOTE | 2016-10-31 09:29 | HHI.NSPN ---
(Meir Sánchez LETTUCE TRIMMER) Note Status Status: Progress Note (Meir Sánchez) Interval History Interval History 51 year old male presents with being brought in as a trauma alert due to a head injury with altered mental status and a diminished GCS. The patient was in the bathroom and fell and hit his head. This was an unwitnessed fall. According to the patient's the patient had been unresponsive for approximately 15 minutes by the time ambulance services arrived. When they arrived the patient was noted to be a GCS of 14, however his mentation would wax and wane and go down as low as 3 again. On arrival to the emergency department he felt extremely nauseated. The CT of the head revealed diffuse subarachnoid bleed. Emergently intubated in the trauma bay. Possible seizure activity. Intubated in the emergency room. 10/05/16: Endovascular coiling 10/07/16 rinse intubated and sedated. Ventriculostomy in place 10/09/16: Remains intubated and sedated. Increased agitation with attempts at sedation vacation 10/17/16: Pupils 2 mm. Intubated and sedated. Somewhat more responsive with decreased sedation. External ventricular drain and closed to reservoir again today. 10/19/16: TCD with vasospasm, to angio with 10 mg Verapamil IA given. 10/20/16: Patient with fevers up to 102.8 per Nursing and cultures sent, Nursing reports CSF milky & with sediment. TCD being repeated this afternoon due to vast difference from that done this morning and yesterday. Development And Planning Engineer increased SBP parameters to 180-200 mm Hg to help overcome vasospasms. No increase in ICP. 10/21/16: Still with elevated temp but not as high. TCD yesterday demonstrated resolution of vasospasms but today it demonstrated a right SRI vasospasm. Patient with facial grimacing and attempted eye opening. CSF specimen sent yesterday w/o any organisms or WBCs seen on Gram stain. 10/23/16: Trach done 10/24/16: PEG done at bedside prior to being seen. Nursing reports prior to sedation he was following commands to all extremities although right was weaker. Mild vasospasm per TCD. 10/25/16: No evident distress. Noted to move BLE & slight LUE spontaneously. Did open eyes partially after having been stimulated. TCD being done. 10/26/16: No evident distress, attempted eye opening to verbal & attempted to follow some commands, some spontaneous movements noted BLE & LUE. TCD being done. 10/27/16: No apparent distress, no eye opening, follows some commands. 10/28/16: Remains tracheed, NAD, follows some commands, spontaneous movement of BLE & LUE noted. 10/29/16: Remains stable follows some commands, spontaneous movement of BLE & LUE noted 10/31/16: Patient trached and on T-piece when seen, follows commands, spontaneous movement of extremities noted. Did attempt to mouth words. (Meir Sánchez) Labs, Micro, & Vital Signs Results Allergies Coded Allergies Type Severity Reaction Last Updated Verified Penicillin Allergy Unknown 10/06/16 Yes Sulfa Allergy Unknown 10/06/16 Yes Recent Impressions Chest X-Ray 10/30/16 0000 Signed Impressions: Service Date/Time: Sunday, October 30, 2016 13:16 - CONCLUSION: Mild hazy opacity left mid to lower lung zone indicating atelectasis versus mild consolidation. Rogelio Ramirez MD 10/29/////// 06:00 18:00 06:00 18:00 06:00 18:00 Intake Total 3158 ml 1545 ml 3526 ml 1957 ml 3178 ml Output Total 2750 ml 1150 ml 3100 ml 1900 ml 3950 ml Balance 408 ml 395 ml 426 ml 57 ml -772 ml IV Total 2491 ml 1264 ml 2747 ml 1550 ml 2394 ml Tube Feeding 507 ml 221 ml 599 ml 347 ml 544 ml Tube Irrigant 160 ml 60 ml 180 ml 60 ml 240 ml Output Urine Total 2450 ml 1100 ml 3100 ml 1600 ml 3750 ml Stool Total 300 ml 50 ml 0 ml 300 ml 200 ml Laboratory Tests Test 10/29/16 10/29/16 10/30/16 10/30/16 04:30 20:00 04:00 09:30 Sodium Level 146 MEQ/L 148 MEQ/L 148 MEQ/L Potassium Level 3.1 MEQ/L 3.0 MEQ/L 3.2 MEQ/L 3.0 MEQ/L Chloride Level 112 MEQ/L Carbon Dioxide Level 28.2 MEQ/L Anion Gap 6 MEQ/L Blood Urea Nitrogen 17 MG/DL Creatinine 0.70 MG/DL Estimat Glomerular Filtration 119 ML/MIN Rate Random Glucose 115 MG/DL Calcium Level 8.0 MG/DL Test 10/30/16 10/30/16 10/31/16 13:58 23:30 06:02 Sodium Level 145 MEQ/L 146 MEQ/L White Blood Count 5.5 TH/MM3 Red Blood Count 2.32 MIL/MM3 Hemoglobin 7.0 GM/DL Hematocrit 20.6 % Mean Corpuscular Volume 89.1 FL Mean Corpuscular Hemoglobin 30.3 PG Mean Corpuscular Hemoglobin 34.0 % Concent Red Cell Distribution Width 13.5 % Platelet Count 134 TH/MM3 Mean Platelet Volume 9.0 FL Neutrophils (%) (Auto) 74.2 % Lymphocytes (%) (Auto) 14.8 % Monocytes (%) (Auto) 7.7 % Eosinophils (%) (Auto) 2.9 % Basophils (%) (Auto) 0.4 % Neutrophils # (Auto) 4.1 TH/MM3 Lymphocytes # (Auto) 0.8 TH/MM3 Monocytes # (Auto) 0.4 TH/MM3 Eosinophils # (Auto) 0.2 TH/MM3 Basophils # (Auto) 0.0 TH/MM3 CBC Comment DIFF FINAL Differential Comment Potassium Level 3.1 MEQ/L Constitutional Vital Signs Date Time Temp Pulse Resp B/P Pulse Ox O2 Delivery O2 Flow Rate FiO2 10/31/16 08:00 97.5 80 16 138/80 98 10/31/16 08:00 35 10/31/16 08:00 80 10/31/16 08:00 98 Mechanical Ventilator 35 10/31/16 06:00 89 10/31/16 04:35 98 35 10/31/16 04:00 35 10/31/16 04:00 85 10/31/16 04:00 97.7 100 21 157/82 100 10/31/16 02:28 99 35 10/31/16 02:00 96 10/31/16 00:00 35 10/31/16 00:00 97.9 97 20 157/85 99 10/31/16 00:00 97 10/30/16 22:00 96 10/30/16 20:48 100 35 10/30/16 20:00 35 10/30/16 20:00 89 10/30/16 20:00 98.1 89 18 159/92 100 10/30/16 19:00 99 Mechanical Ventilator 35 10/30/16 18:00 90 10/30/16 16:00 82 10/30/16 16:00 35 10/30/16 16:00 97.7 84 18 157/91 99 10/30/16 14:00 83 10/30/16 12:00 35 10/30/16 12:00 98.1 90 26 161/90 98 10/30/16 12:00 90 10/30/16 11:44 100 35 10/30/16 10:00 107 10/31/16 07:00 Intake Total 5135 ml Output Total 5850 ml Balance -715 ml (Meir Sánchez) Review of Systems/Exam ROS Unable to obtain ROS due to mental status & being intubated. Exam Resp: Respirations CTAB w/o W/R/R, equal excursion, non-laboured, trached & on T -piece. CV: RRR w/o M/G/R, radial & pedal pulses 2+ bilaterally, cap refill < 2 sec. Monitor is sinus tachycardia w/o any ectopy noted GI: Abdomen distended, bowel sounds all quads, PEG tube LUQ clamped at present. : Paul cath to BSD. Neuro: Partial eye opening right eye but attempted to open left, PERRLA 5 to 3 mm bilaterally, EOM intact, conjugate gaze. Spontaneous movement of BLE & BUE, bilateral hand railway patrol officer left > right, wiggle toes to command. Patient did attempt to mouth "hello" to command. Ventriculostomy incision site dry w/o any evident drainage, erythema or streaking. (Meir Sánchez) Medications Current Medications Current Medications Medications (Trade) Dose Ordered Sig/Nava Route Start Time Stop Time Status Last Admin (Tylenol) 650 mg Q6H PRN PO 10/05/16 02:45 10/29/16 12:56 (Protonix Inj) 40 mg DAILY IV 10/05/16 09:00 10/31/16 09:15 (Tears Naturale Opth Soln) 1 drop TID EACH EYE 10/05/16 09:00 10/31/16 09:17 (Zofran Inj) 4 mg Q6H PRN IV 10/05/16 02:45 (Colace) 100 mg Q12H G-TUBE 10/05/16 04:00 10/30/16 05:12 Miscellaneous Information 1 Q361D XX 10/05/16 02:45 10/05/16 02:45 (Chlorhexidine 2% Cloth) Taper DAILY@04 TOP 10/05/16 04:00 10/01/17 03:59 10/28/16 04:00 Chlorhexidine Gluconate 3 pack 3 pack UNSCH PRN TOP 10/05/16 02:45 Levetriacetam 500 mg/Sodium Chloride 105 ml @ 420 mls/hr Q12HR IV 10/05/16 09:00 10/31/16 09:16 (Cardene Inj/NS 250 ml Inj) 260 ml @ 0 mls/hr TITRATE IV 10/05/16 02:45 10/18/16 11:23 (Trandate Inj) 10 mg Q4H PRN IV PUSH 10/05/16 02:45 10/30/16 11:11 (Pravachol) 40 mg DAILY PO 10/05/16 09:00 10/31/16 09:15 (NS Flush) See Protocol DAILY IV FLUSH 10/07/16 09:00 10/31/16 09:16 (NS Flush) See Protocol UNSCH PRN IV FLUSH 10/06/16 12:00 Sodium Chloride UNSCH PRN IV FLUSH 10/06/16 12:00 (Levophed Inj/NS 250 ml Inj) 254 ml @ 0 mls/hr TITRATE IV 10/06/16 18:00 10/28/16 20:14 (Cathflo Activase Inj) 2 mg UNSCH PRN IV FLUSH 10/19/16 16:15 10/19/16 18:43 Diphenhydramine HCl 6.25 mg 6.25 mg Q4H PRN IV PUSH 10/19/16 19:15 10/20/16 07:03 (NS 1000 ml Inj) 1,000 ml @ 120 mls/hr Q8H20M IV 10/21/16 08:30 10/31/16 04:48 (Sodium Chloride) 3 gm Q8HR PO 10/22/16 14:00 10/31/16 06:32 (Florinef) 0.2 mg Q12HR PO 10/22/16 21:00 10/31/16 09:15 Enoxaparin Sodium 40 mg 40 mg Q24H SQ 10/23/16 21:00 10/30/16 20:01 Potassium Chloride 100 ml @ 50 mls/hr Q2H PRN IV 10/24/16 15:15 (KCl 20 Meq Premix Inj) 100 ml @ 50 mls/hr Q2H PRN IV 10/24/16 15:15 10/31/16 09:16 Potassium Bicarb/ Potassium Chloride 50 meq 50 meq UNSCH PRN PO 10/24/16 15:15 Potassium Chloride 100 ml @ 25 mls/hr UNSCH PRN IV 10/24/16 15:15 10/26/16 21:47 Potassium Chloride 100 ml @ 50 mls/hr Q2H PRN IV 10/24/16 15:15 (Magnesium Sulfate Inj/NS Inj) 100 ml @ 50 mls/hr UNSCH PRN IV 10/24/16 15:15 Magnesium Oxide 800 mg 800 mg UNSCH PRN PO 10/24/16 15:15 (Magnesium Sulfate Inj/NS Inj) 100 ml @ 50 mls/hr UNSCH PRN IV 10/24/16 15:15 Potassium Phosphate 2000 mg 2,000 mg Q4H PRN PO 10/24/16 15:15 (Sodium Phosphate Inj/NS 250 ml Inj) 250 ml @ 42 mls/hr UNSCH PRN IV 10/24/16 15:15 Potassium Phosphate 2000 mg 2,000 mg UNSCH PRN PO/TUBE 10/24/16 15:15 Potassium Phosphate 30 mmol/ Sodium Chloride 260 ml @ 42 mls/hr UNSCH PRN IV 10/24/16 15:15 (Maxipime Inj/NS Inj) 100 ml @ 200 mls/hr Q8HR IV 10/30/16 14:00 10/31/16 06:32 (fentaNYL INJ) 50 mcg Q3H PRN IV 10/30/16 15:15 10/30/16 15:59 (Meir Sánchez) Medical Decision Making MDM Remarks 1. Stable neurologic function 2. 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 Left basal ganglia region CVA primarily per CT 4. CSF cultures w/o any growth to date 5. Max temp 98.1 6. Gram negative rods in sputum from (Meir Sánchez) Plan Plan Remarks Will order cognitive/speech therapy eval & tx Will order OT eval & tx Activity OOB to cardiac chair Continue PT Replace sodium per Surgical Development And Planning Engineer Continue abx per Surgical Development And Planning Engineer Continue SBP 160-180 mm Hg per Surgical Development And Planning Engineer Continue Keppra for probable seizure activity Okay for Lovenox from NSGY standpoint Ulcer prophylaxis (Meir Sánchez) Attending Statement I have personally seen and examined the patient on the date of this note. Pertinent documentation and study results have been reviewed by the undersigned. I have personally developed the treatment plan and performed medical decision making. Agree with findings, exam, and treatment plan as noted above. Somewhat agitated again this evening. Ms. all extremities with moderate strength Not following commands Back on ventilator this evening May resume normal sodium and normotensive from neurosurgery standpoint. (Gino Mace MD) Meir Sánchez October 31, 2016 09:29 Gino Mace MD October 31, 2016 21:34
--- NOTE | 2016-10-31 12:35 | HHI.PR ---
Neuropsych Progress Notes/Response to Tx Contents of Sessions: Level of Consciousness Time with Patient: 15 minutes Premorbid psychological status Premorbid Cognitive, Emotional and Behavioral Status: Unable to Assess. The patient past history is unknown as there has been no family present. Behavioral Reactions of Patient and Family/Support System: Unable to Assess. The patients family is not present. Emotional/Behavioral Status of Patient and Family/Support System: Unable to Assess. Pertinent issues, if appropriate to this patients clinical care, are described in detail above. Maximizing acute care outcome It is recommended that the patient be monitored for emergent behavioral impulsivity as the medical condition evolves. This patients neuropathological challenges may limit their rehabilitation potential going forward, and these challenges will require specialized therapeutic skills to maximize outcome. Anticipated Problems Ongoing areas of concern will include behavioral impulsivity, lack of insight and judgment, which is expected to improve with time and treatment. Treatment Plan This clinician will continue to follow with you throughout the course of this patients acute care stay, and I will be available to meet with the patients family/support system to facilitate their understanding and the ongoing care of their family member. The goals of neuropsychological intervention shall be both educational and supportive to the family/support system as is deemed clinically appropriate. [facility] Level: III:Localized response-total assist Impression This patient has suffered a significant traumatic brain injury secondary to a fall on 10/05/2016. He is expected to have residual neurocognitive deficits, and will likely require some level of neuro rehabilitation following his acute stay and medical stabilization. Diagnosis: (1) Major neurocognitive disorder as late effect of traumatic brain injury with behavioral disturbance Status: Acute Progress Note Narrative Ongoing follow-up of patient seen during trauma rounds. This is day 27 post injury. The patient is reported to be more awake, and follows x 4. I will continue to follow. Jeremy Workman PhD October 31, 2016 12:35
--- NOTE | 2016-10-31 13:15 | HHI.CCPN ---
Subjective Remarks/Hospital Course 51 year old male presents with being brought in as a trauma alert due to a head injury with altered mental status and a diminished GCS. The patient was in the bathroom and fell and hit his head. This was an unwitnessed fall. According to the patient's the patient had been unresponsive for approximately 15 minutes by the time ambulance services arrived. When they arrived the patient was noted to be a GCS of 14, however his mentation would wax and wane and go down as low as 3 again. On arrival to the emergency department he felt extremely nauseated. The CT of the head revealed diffuse subarachnoid bleed. 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 CT head today with some ventricular blood. ICP controlled and patient tolerates lightening of sedation. Volume loaded to maintain SBP > 130s. Opens eyes to voice. 10/07: BP controlled. TCDs to be done today. 10/08: BP control good. Well hydrated. No TCD evidence of spasm. 10/09: TCD today pending. CPP good. No seizure activity. Remains well hydrated. 10/10: TCDs no vasospasm. Remains well hydrated, well perfused. Some peripheral edema as expected. 10/11: Hemodynamics good. Bladder spasm continues. Try Flomax - an alpha kendall , will not impair cerebral vessels. 10/12: Episode of sepsis last night from obstructed Paul, JONH evident. Much improved now. 10/13: JONH improving. Narrow abx to GNR. 10/14: Aztreonam started for sputum, urine. CT Head acceptable. 10/15: No change in neuro status. BP control good. 10/16: Remains sedated, orally intubated on mechanical ventilation. Ventriculostomy in place. Underwent angiogram with injection of verapamil intra -arterial for minimal vasospasm on 10/15 10/17: Remains sedated, orally intubated on mechanical ventilation. Ventriculostomy drained 65 cc over 8 hours overnight. 10/18: off sedation. withdraws to pain. does not follow commands. per nursing, this is an exam change and he was previously following commands. 10/19: continues off sedation. ICP stable around 5. neuro exam stable. TCDs yesterday with questionable early spasm, but given stable neuro exam, decided to repeat TCD today to eval trend. 10/20: off sedation. taken yesterday for angio with IA verapamil for left MCA, SRI spasm. 10/21: spiked fever yesterday, white cultured. empirically started on broad spectrum abx. CSF sent for culture. initial CSF appeared cloudy but cell count and gram stain reassuring. TCDs yesterday without evidence of vasospasm. this AM sodium dropped from 147 to 139 with net -1L. likely early salt wasting, although up to this point urine studies have not shown concern for this up to now. 10/22: uop increased and sodium continues to downtrend despite salt tabs and ivf. still net -1L. urine studies concerning for salt wasting. sputum with enterobacter. neuro exam still stable. TCDs today without overt evidence of spasm. 10/23: still salt wasting. net -500cc/24h. aggressively replacing volume loss and sodium. TCDs today without any evidence of spasm and PI/LI now down to normal ranges. talked with Dr. Prater and while we have a window without spasm, will proceed with tracheostomy today. Likely PEG tube tomorrow. stable neurologic exam. 10/24: Na today 149, 3% at 10 ml per hour. s/p PEG today and still under heavy sedation. Was following commands to RN prior to receiving propofol for sedation. Trach done yesterday. -[id number] UO , getting IVF replacement 10/25: continues to have high UO 12L in 24 hours. D/w Dr. Mace -probably antidiuresis. Na 145. Remains on NS at 150 ml per hour and 3% at 10 ml per hour (increased 3% to 20 ml pr hour)/ weekly following commands in all 4 extremities , partial eye opening to command. Remains on Levophed at 8 mcg per min 10/26: Slightly less responsive today, getting TCDs. UO 7L -decreased from yesterday. Na 144 today. Remains on 8 mcg/min of Levophed to maintain cerebral perfusion. SUBJECTIVE 10/27: Currently on T piece. Remains somnolent. Intermittently follows commands for the nurses. Remains on 1.5 mcg/min Levophed to maintain cerebral perfusion 10/28/16: Remains on CPAP today. Followed commands in upper extremities for RN today. More somnolent and not following commands to me. On 6 mcg per min of Levophed to maintain CPP 10/29/16: Tolerating T piece 2-3 hours a day. Currently on T piece. Somnolent. Patient did follow commands earlier for the nurse. Na 146. UO normalizing 10/30: More awake today with partial eye opening. Followed commands all 4 ext. Na 148. Will stop 3% saline 10/31: Tolerating TP well today. Neuro unchanged. No clinical evidence of vasospasm. Na today pending. Getting 1U PRBC for Hb 7 Objective Vital Signs Date Time Temp Pulse Resp B/P Pulse Ox O2 Delivery O2 Flow Rate FiO2 10/31/16 09:15 94 T-piece 6.00 40 10/31/16 08:00 97.5 80 16 138/80 Intake and Output 10/30/16 10/30/16 10/31/16 08:00 16:00 00:00 Intake Total 1660 ml 1957 ml 1826 ml Output Total 1250 ml 1900 ml 2000 ml Balance 410 ml 57 ml -174 ml Result Diagram: 10/31/16 0602 10/31/16 0602 Imaging Last 24 hours Impressions Transcranial Doppler Study Complete 10/23/16 0700 Signed Impressions: Service Date/Time: Sunday, October 23, 2016 07:36 - CONCLUSION: Normal Lindegaard and Gregorio ratios, spasm is not suspected. Tim Garcia MD Objective Remarks GENERAL: Middle-aged male lying in bed, s/p trach. +partial eye opening SKIN: Dry. HEAD: Normocephalic. EYES: Pupils are 2 mm and reactive bilaterally. NECK: Supple, trachea midline. CARDIOVASCULAR: Regular rate and rhythm. No JVD. RESPIRATORY:On Tp today, Breath sounds equal bilaterally. Clear, no wheezes or crackles. Good bilateral excursions. GASTROINTESTINAL: Abdomen soft, non-tender, nondistended. BS active. No guarding. EXTREMITIES: Nonfocal clubbing cyanosis or edema, well perfused. NEURO: Partial eye opening to sternal rub. Follows commands in bilateral upper and lower extremities. Withdraws to pain A/P Problem List: (1) 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 ICD Code: I60.8 Status: Acute (2) Intracranial hemorrhage ICD Code: I62.9 Status: Acute (3) Hypertension ICD Code: I10 Status: Acute Assessment and Plan Assessment: 51yM with aneurysmal SAH, post-bleed day 23, s/p basilar artery coiling 10/05. S/p IA Verapamil 10/15 and 10/19 for cerebral vasospasm. There is some improvement in encephalopathy, acute hypoxic respiratory failure. Resolving sepsis. critically ill. Now in possible cerebral salt wasting. Continue salt tabs, 3% saline, florinef, and NS 150 ml per hour. strict I/Os. TCDs per N/S. s/p Trach 10/23 and PEG 10/24. Also continues to grow Enterobacter in the sputum Plan: Neuro: Acute encephalopathy Aneurysmal Subarachnoid bleed 10/05, Basilar Aneurysm Cerebral Vasospasm - Núñze Veliz 5 Lucas grade 3. - Basilar tip coiled. - Nimodipine. Status post intra-arterial verapamil for vasospasm on 10/15, 10/19 - Pravachol - SBP target reduced by Dr. Mace to 120-160. - TCD's per N/S Dr Mace. No recent vasospasm - Neuro exam improving, weakly following commands all 4 ext Respiratory: Acute Hypoxic and Hypercarbic Respiratory Failure - Intubated for airway protection - s/p trach 10/23 now on CPAP/intermittent TP - Tolerating TP 2-3 hours per day - DuoNeb's as needed for wheezing, start scheduled DuoNeb as well CV: Septic Shock- resolved. - goal SBP 120-[address] mace - Off Levophed Renal: Possible Cerebral Salt Wasting - UO has decreased now to normal range. About 5L in 24 hours - Goal euvolemia - Paul for accurate I/Os Strict I/Os - NaCl tabs 3gm q8h - Florinef 0.2mg q12h - NS @ 120 ml per hour 10/30. DC 3% - strict I/Os q1h - urine studies 10/21 consistent with cerebral salt wasting: at that time was patient intravascularly hypovolemic on clinical exam - NaCl boluses as needed to maintain euvolemia. FEN/GI: Acute Protein Calorie Malnutrition- mild -- vital high protein 40mL/hr. -- daily BMP -- ICU electrolyte protocol. Heme/ID: Fever Leukocytosis prior UTI -- s/p full course abx -- 10/20 sputum culture- Enterobacter, some resistance. sensitive to Cefepime. -- 10/20 urine culture- NGTD -- 10/20 CSF: 0 wbc, glu 111, prot 27.8, culture NGTD -- 10/20 Blood cx: NGTD -- 10/21 CSF: NGTD. -- Dr. Mace d/c EVD 10/21 -- d/c d vancomycin and Flagyl. -- Anticipated completion of 10 day course of cefepime 2gm iv q8hr was on 10/29, repeat sputum cx GNR, ID pending. Continue cefepime for now Endocrine: Hyperglycemia of critical illness -- SSI Prophylaxis: - Teds SCDs - Started Lovenox per nsg 10/23/16 - Protonix IV Dispo: remain in the ICU. he remains critically ill. Level 3 Problem Qualifiers (1) Hypertension: Qualified Code: I10 - Essential hypertension James Dumont MD October 31, 2016 13:15 (1) Hypertension: Qualified Code: I10 - Essential hypertension James Dumont MD October 31, 2016 13:15
[2016-10-31] MEDS: RESP: ALBUTEROL 2.5 MG/IPRATROPIUM 0.5 MG NEB (PRN) INH (13:41)
[2016-10-31] MEDS: DOCUSATE SODIUM 100 MG/10 ML UDC G-TUBE SCH (17:24)
[2016-10-31] MEDS: ENOXAPARIN SODIUM 40 MG/0.4 ML SYRINGE SQ SCH (20:11)
[2016-10-31 20:12] LABS: AUTOMATED NEUTROPHIL # 6.2 TH/MM3 (1.8-7.7); BASOPHIL % 0.4 % (0.0-2.0); EOSINOPHIL # 0.2 TH/MM3 (0-0.4); EOSINOPHIL % 2.5 % (0.0-4.0); HEMATOCRIT 29.2 % (39.0-51.0); HEMOGLOBIN 9.8 GM/DL (13.0-17.0); LYMPH % 12.5 % (9.0-44.0); MEAN CELL VOLUME 86.1 FL (80.0-100.0); MEAN CORPUSCULAR HEMOGLOBIN 28.9 PG (27.0-34.0); MEAN CORPUSCULAR HGB CONC 33.6 % (32.0-36.0); MEAN PLATELET VOLUME 8.9 FL (7.0-11.0); MONOCYTE # 0.6 TH/MM3 (0-0.9); NEUT % 76.6 % (16.0-70.0); PLATELET COUNT 165 TH/MM3 (150-450); RED CELL DISTRIBUTION WIDTH 14.6 % (11.6-17.2); WHITE BLOOD COUNT 8.1 TH/MM3 (4.0-11.0)
[2016-10-31 20:38] LABS: ALBUMIN 2.6 GM/DL (3.4-5.0); AST (GOT) 53 U/L (15-37); BICARBONATE 30.2 MEQ/L (21.0-32.0); BLOOD UREA NITROGEN 10 MG/DL (7-18); CALCIUM 8.4 MG/DL (8.5-10.1); CHLORIDE 105 MEQ/L (98-107); CREATININE 0.68 MG/DL (0.60-1.30); GLOMERULAR FILTRATION RATE 123 ML/MIN (>89); GLUCOSE,RANDOM 115 MG/DL (74-106); SODIUM (NA) 144 MEQ/L (136-145)
[2016-10-31 20:41] LABS: ALKALINE PHOSPHATASE 66 U/L (45-117); ALT (GPT) 84 U/L (12-78); TOTAL BILIRUBIN ADULT 0.7 MG/DL (0.2-1.0); TOTAL PROTEIN 7.1 GM/DL (6.4-8.2)
[2016-10-31] MEDS: POTASSIUM CHLOR 40 MEQ PREMIX 100 ML IV PRN ×2 (21:10→21:33)
[2016-10-31] MEDS: LABETALOL HCL 100 MG/20 ML VIAL IV PUSH PRN (21:32)
[2016-10-31] MEDS: diphenhydrAMINE HCL 50 MG/ML VIAL IV PUSH PRN (22:43)
[2016-11-01] VITALS (16 sets, daily range): BP systolic 140–169; BP diastolic 82–107; PULSE 90–102; RESP 18–36; TEMP 97.5–98.6; O2SAT 95–99
[2016-11-01] MEDS: LABETALOL HCL 100 MG/20 ML VIAL IV PUSH PRN (01:30)
[2016-11-01] MEDS: diphenhydrAMINE HCL 50 MG/ML VIAL IV PUSH PRN ×4 (03:43→23:53)
[2016-11-01] MEDS: DOCUSATE SODIUM 100 MG/10 ML UDC G-TUBE SCH ×2 (03:43→17:00)
[2016-11-01] MEDS: CHLORHEXIDINE GLUCONATE 2 % 1 PACK (2 CLOTHS) TOP SCH (03:43)
[2016-11-01] MEDS: SODIUM CHLORIDE 1 GRAM TAB PO SCH ×3 (04:29→20:09)
[2016-11-01] MEDS: CEFEPIME INJ 2,000 MG in SODIUM CHLORIDE 0.9% INJ 100 ML IV SCH ×3 (04:29→20:09)
[2016-11-01 04:48] LABS: AUTOMATED NEUTROPHIL # 5.7 TH/MM3 (1.8-7.7); BASOPHIL # 0.1 TH/MM3 (0-0.2); BASOPHIL % 0.7 % (0.0-2.0); EOSINOPHIL # 0.1 TH/MM3 (0-0.4); HEMOGLOBIN 8.9 GM/DL (13.0-17.0); MEAN CELL VOLUME 85.9 FL (80.0-100.0); MEAN CORPUSCULAR HEMOGLOBIN 29.5 PG (27.0-34.0); MEAN CORPUSCULAR HGB CONC 34.4 % (32.0-36.0); MEAN PLATELET VOLUME 8.4 FL (7.0-11.0); MONOCYTE # 0.6 TH/MM3 (0-0.9); NEUT % 76.3 % (16.0-70.0); PLATELET COUNT 155 TH/MM3 (150-450); RED BLOOD COUNT 3.02 MIL/MM3 (4.50-5.90); RED CELL DISTRIBUTION WIDTH 15.1 % (11.6-17.2); WHITE BLOOD COUNT 7.5 TH/MM3 (4.0-11.0)
[2016-11-01 05:20] LABS: ALBUMIN 2.4 GM/DL (3.4-5.0); ALKALINE PHOSPHATASE 108 U/L (45-117); ALT (GPT) 81 U/L (12-78); AST (GOT) 50 U/L (15-37); BICARBONATE 28.2 MEQ/L (21.0-32.0); BLOOD UREA NITROGEN 14 MG/DL (7-18); CALCIUM 8.1 MG/DL (8.5-10.1); CHLORIDE 110 MEQ/L (98-107); CREATININE 0.83 MG/DL (0.60-1.30); GLOMERULAR FILTRATION RATE 98 ML/MIN (>89); GLUCOSE,RANDOM 109 MG/DL (74-106); SODIUM (NA) 145 MEQ/L (136-145); TOTAL BILIRUBIN ADULT 0.4 MG/DL (0.2-1.0); TOTAL PROTEIN 6.3 GM/DL (6.4-8.2)
[2016-11-01] MEDS: POTASSIUM CHLOR 40 MEQ PREMIX 100 ML IV PRN (05:48)
[2016-11-01] MEDS: SODIUM CHLOR 0.9% 1000 ML INJ 1,000 ML IV SCH ×2 (06:14→12:27)
--- NOTE | 2016-11-01 06:35 | RADRPT ---
EXAM DATE/TIME: 11/01/2016 04:37 [facility] COMPARISON: CHEST SINGLE AP, October 30, 2016, 13:16. INDICATIONS : Shortness of breath. MEDICAL HISTORY : Hypertension. Cardiovascular disease. SURGICAL HISTORY : None. ENCOUNTER: Subsequent ACUITY: 1 month PAIN SCORE: Non-responsive. LOCATION: Bilateral chest FINDINGS: The cardiac silhouette is normal in transverse diameter. A tracheostomy tube is in place in the midli ne. A PICC line is in place via right-sided approach with its tip in the region of the superior vena cava. The lungs are free of acute parenchymal opacity. No effusions are identified. CONCLUSION: 1. No acute cardiopulmonary disease. Trevin De León MD on November 01, 2016 at 6:33 Board Certified Radiologist. This report was verified electronically.
[2016-11-01] MEDS: PANTOPRAZOLE SODIUM 40 MG VIAL IV SCH (08:33)
[2016-11-01] MEDS: FLUDROCORTISONE ACETATE 0.1 MG TAB PO SCH ×2 (08:33→20:01)
[2016-11-01] MEDS: levETIRAcetam INJ 500 MG in SODIUM CHLORIDE 0.9% INJ 100 ML IV SCH ×2 (08:34→20:01)
[2016-11-01] MEDS: PRAVASTATIN SOD 40 MG TAB PO SCH (08:34)
[2016-11-01] MEDS: ARTIFICIAL TEARS OPTH SOLN 15 ML BTL EACH EYE SCH ×3 (08:34→17:30)
[2016-11-01] MEDS: SODIUM CHLORIDE 0.9% FLUSH 10 ML FLUSH IV FLUSH SCH (08:34)
--- NOTE | 2016-11-01 10:42 | HHI.NSPN ---
(Meir Sánchez WELL SERVICING RIG OPERATOR) Note Status Status: Progress Note (Meir Sánchez) Interval History Interval History 51 year old male presents with being brought in as a trauma alert due to a head injury with altered mental status and a diminished GCS. The patient was in the bathroom and fell and hit his head. This was an unwitnessed fall. According to the patient's the patient had been unresponsive for approximately 15 minutes by the time ambulance services arrived. When they arrived the patient was noted to be a GCS of 14, however his mentation would wax and wane and go down as low as 3 again. On arrival to the emergency department he felt extremely nauseated. The CT of the head revealed diffuse subarachnoid bleed. Emergently intubated in the trauma bay. Possible seizure activity. Intubated in the emergency room. 10/05/16: Endovascular coiling 10/07/16 rinse intubated and sedated. Ventriculostomy in place 10/09/16: Remains intubated and sedated. Increased agitation with attempts at sedation vacation 10/17/16: Pupils 2 mm. Intubated and sedated. Somewhat more responsive with decreased sedation. External ventricular drain and closed to reservoir again today. 10/19/16: TCD with vasospasm, to angio with 10 mg Verapamil IA given. 10/20/16: Patient with fevers up to 102.8 per Nursing and cultures sent, Nursing reports CSF milky & with sediment. TCD being repeated this afternoon due to vast difference from that done this morning and yesterday. Chainstitch Felled Seam Operator increased SBP parameters to 180-200 mm Hg to help overcome vasospasms. No increase in ICP. 10/21/16: Still with elevated temp but not as high. TCD yesterday demonstrated resolution of vasospasms but today it demonstrated a right SRI vasospasm. Patient with facial grimacing and attempted eye opening. CSF specimen sent yesterday w/o any organisms or WBCs seen on Gram stain. 10/23/16: Trach done 10/24/16: PEG done at bedside prior to being seen. Nursing reports prior to sedation he was following commands to all extremities although right was weaker. Mild vasospasm per TCD. 10/25/16: No evident distress. Noted to move BLE & slight LUE spontaneously. Did open eyes partially after having been stimulated. TCD being done. 10/26/16: No evident distress, attempted eye opening to verbal & attempted to follow some commands, some spontaneous movements noted BLE & LUE. TCD being done. 10/27/16: No apparent distress, no eye opening, follows some commands. 10/28/16: Remains tracheed, NAD, follows some commands, spontaneous movement of BLE & LUE noted. 10/29/16: Remains stable follows some commands, spontaneous movement of BLE & LUE noted 10/31/16: Patient trached and on T-piece when seen, follows commands, spontaneous movement of extremities noted. Did attempt to mouth words. 11/01/16: Patient doing well, on T-piece, follows commands, moving both feet spontaneously. Nursing reports he is intermittently following command and mouthing words. (Meir Sánchez) Labs, Micro, & Vital Signs Results Allergies Coded Allergies Type Severity Reaction Last Updated Verified Penicillin Allergy Unknown 10/06/16 Yes Sulfa Allergy Unknown 10/06/16 Yes Recent Impressions Chest X-Ray 11/01/16 0600 Signed Impressions: Service Date/Time: Tuesday, November 01, 2016 04:37 - CONCLUSION: 1. No acute cardiopulmonary disease. Trevin De León MD Chest X-Ray 10/30/16 0000 Signed Impressions: Service Date/Time: Sunday, October 30, 2016 13:16 - CONCLUSION: Mild hazy opacity left mid to lower lung zone indicating atelectasis versus mild consolidation. Rogelio Ramirez MD 10/30/174//175/1/175//175// 06:00 18:00 06:00 18:00 06:00 18:00 Intake Total 3526 ml 1957 ml 3178 ml 1010 ml 2669 ml Output Total 3100 ml 1900 ml 3950 ml 3300 ml 3700 ml Balance 426 ml 57 ml -772 ml -2290 ml -1031 ml IV Total 2747 ml 1550 ml 2394 ml 950 ml 2014 ml Tube Feeding 599 ml 347 ml 544 ml 445 ml Tube Irrigant 180 ml 60 ml 240 ml 60 ml 210 ml Output Urine Total 3100 ml 1600 ml 3750 ml 3200 ml 3700 ml Stool Total 0 ml 300 ml 200 ml 100 ml # Bowel Movements 3 Laboratory Tests Test 10/29/16 10/30/16 10/30/16 10/30/16 20:00 04:00 09:30 13:58 Sodium Level 148 MEQ/L 148 MEQ/L 145 MEQ/L Potassium Level 3.0 MEQ/L 3.2 MEQ/L 3.0 MEQ/L Test 10/30/16 10/31/16 10/31/16 10/31/16 23:30 06:02 09:45 19:30 Sodium Level 146 MEQ/L 144 MEQ/L White Blood Count 5.5 TH/MM3 8.1 TH/MM3 Red Blood Count 2.32 MIL/MM3 3.40 MIL/MM3 Hemoglobin 7.0 GM/DL 9.8 GM/DL Hematocrit 20.6 % 29.2 % Mean Corpuscular Volume 89.1 FL 86.1 FL Mean Corpuscular Hemoglobin 30.3 PG 28.9 PG Mean Corpuscular Hemoglobin 34.0 % 33.6 % Concent Red Cell Distribution Width 13.5 % 14.6 % Platelet Count 134 TH/MM3 165 TH/MM3 Mean Platelet Volume 9.0 FL 8.9 FL Neutrophils (%) (Auto) 74.2 % 76.6 % Lymphocytes (%) (Auto) 14.8 % 12.5 % Monocytes (%) (Auto) 7.7 % 8.0 % Eosinophils (%) (Auto) 2.9 % 2.5 % Basophils (%) (Auto) 0.4 % 0.4 % Neutrophils # (Auto) 4.1 TH/MM3 6.2 TH/MM3 Lymphocytes # (Auto) 0.8 TH/MM3 1.0 TH/MM3 Monocytes # (Auto) 0.4 TH/MM3 0.6 TH/MM3 Eosinophils # (Auto) 0.2 TH/MM3 0.2 TH/MM3 Basophils # (Auto) 0.0 TH/MM3 0.0 TH/MM3 CBC Comment DIFF FINAL DIFF FINAL Differential Comment Potassium Level 3.1 MEQ/L 3.2 MEQ/L Blood Type A POSITIVE Antibody Screen NEGATIVE Crossmatch Leukocyte-Reduced Red Blood Cells Blood Bank Comment Chloride Level 105 MEQ/L Carbon Dioxide Level 30.2 MEQ/L Anion Gap 9 MEQ/L Blood Urea Nitrogen 10 MG/DL Creatinine 0.68 MG/DL Estimat Glomerular Filtration 123 ML/MIN Rate Random Glucose 115 MG/DL Calcium Level 8.4 MG/DL Total Bilirubin 0.7 MG/DL Aspartate Amino Transf 53 U/L (AST/SGOT) Alanine Aminotransferase 84 U/L (ALT/SGPT) Alkaline Phosphatase 66 U/L Total Protein 7.1 GM/DL Albumin 2.6 GM/DL Test 11/01/16 04:40 White Blood Count 7.5 TH/MM3 Red Blood Count 3.02 MIL/MM3 Hemoglobin 8.9 GM/DL Hematocrit 26.0 % Mean Corpuscular Volume 85.9 FL Mean Corpuscular Hemoglobin 29.5 PG Mean Corpuscular Hemoglobin 34.4 % Concent Red Cell Distribution Width 15.1 % Platelet Count 155 TH/MM3 Mean Platelet Volume 8.4 FL Neutrophils (%) (Auto) 76.3 % Lymphocytes (%) (Auto) 13.0 % Monocytes (%) (Auto) 8.0 % Eosinophils (%) (Auto) 2.0 % Basophils (%) (Auto) 0.7 % Neutrophils # (Auto) 5.7 TH/MM3 Lymphocytes # (Auto) 1.0 TH/MM3 Monocytes # (Auto) 0.6 TH/MM3 Eosinophils # (Auto) 0.1 TH/MM3 Basophils # (Auto) 0.1 TH/MM3 CBC Comment DIFF FINAL Differential Comment Sodium Level 145 MEQ/L Potassium Level 3.4 MEQ/L Chloride Level 110 MEQ/L Carbon Dioxide Level 28.2 MEQ/L Anion Gap 7 MEQ/L Blood Urea Nitrogen 14 MG/DL Creatinine 0.83 MG/DL Estimat Glomerular Filtration 98 ML/MIN Rate Random Glucose 109 MG/DL Calcium Level 8.1 MG/DL Magnesium Level 2.0 MG/DL Total Bilirubin 0.4 MG/DL Aspartate Amino Transf 50 U/L (AST/SGOT) Alanine Aminotransferase 81 U/L (ALT/SGPT) Alkaline Phosphatase 108 U/L Total Protein 6.3 GM/DL Albumin 2.4 GM/DL Constitutional Vital Signs Date Time Temp Pulse Resp B/P Pulse Ox O2 Delivery O2 Flow Rate FiO2 11/01/16 10:00 97 11/01/16 08:00 98.1 96 18 154/94 99 11/01/16 08:00 35 11/01/16 08:00 96 11/01/16 07:00 98 Mechanical Ventilator 40 11/01/16 06:00 90 11/01/16 04:10 98 35 11/01/16 04:00 35 11/01/16 04:00 98.6 102 24 140/82 98 11/01/16 04:00 102 11/01/16 02:00 101 11/01/16 01:25 98 35 11/01/16 00:00 35 11/01/16 00:00 98.6 98 20 151/107 97 11/01/16 00:00 98 10/31/16 22:30 34 21 10/31/16 22:00 92 10/31/16 20:45 35 10/31/16 20:40 100 35 10/31/16 20:00 98.1 100 34 177/96 100 10/31/16 20:00 100 10/31/16 20:00 40 10/31/16 19:00 100 T-Piece 40 10/31/16 18:00 100 10/31/16 16:08 97 T-piece 6.00 40 10/31/16 16:00 40 10/31/16 16:00 104 10/31/16 16:00 97.9 110 29 158/91 97 10/31/16 14:00 107 10/31/16 12:00 35 10/31/16 12:00 99 10/31/16 12:00 98.1 99 25 168/99 95 11/01/16 07:00 Intake Total 3679 ml Output Total 7000 ml Balance -3321 ml (Meir Sánchez) Review of Systems/Exam ROS Unable to obtain ROS due to mental status & being intubated. Exam Resp: Respirations CTAB w/o W/R/R, equal excursion, non-laboured, trached & on T -piece. CV: RRR w/o M/G/R, radial & pedal pulses 2+ bilaterally, cap refill < 2 sec. Monitor is sinus rhythm w/o any ectopy noted GI: Abdomen soft, nontender, bowel sounds all quads, PEG tube w/enteral feeds, fecal mgmt system in place. : Paul cath to BSD. Neuro: No attempted eye opening to command, PERRLA. Nods appropriately to questions. Spontaneous movement of both feet noted. Weak bilateral hand grasp. Ventriculostomy incision site dry w/o any evident drainage, erythema or streaking. (Meir Sánchez) Medications Current Medications Current Medications Medications (Trade) Dose Ordered Sig/Nava Route Start Time Stop Time Status Last Admin (Tylenol) 650 mg Q6H PRN PO 10/05/16 02:45 10/29/16 12:56 (Protonix Inj) 40 mg DAILY IV 10/05/16 09:00 11/01/16 08:33 (Tears Naturale Opth Soln) 1 drop TID EACH EYE 10/05/16 09:00 11/01/16 08:34 (Zofran Inj) 4 mg Q6H PRN IV 10/05/16 02:45 Miscellaneous Information 1 Q361D XX 10/05/16 02:45 10/05/16 02:45 (Chlorhexidine 2% Cloth) Taper DAILY@04 TOP 10/05/16 04:00 10/01/17 03:59 10/28/16 04:00 Chlorhexidine Gluconate 3 pack 3 pack UNSCH PRN TOP 10/05/16 02:45 Levetriacetam 500 mg/Sodium Chloride 105 ml @ 420 mls/hr Q12HR IV 10/05/16 09:00 11/01/16 08:34 (Cardene Inj/NS 250 ml Inj) 260 ml @ 0 mls/hr TITRATE IV 10/05/16 02:45 10/18/16 11:23 (Trandate Inj) 10 mg Q4H PRN IV PUSH 10/05/16 02:45 11/01/16 01:30 (Pravachol) 40 mg DAILY PO 10/05/16 09:00 11/01/16 08:34 (NS Flush) See Protocol DAILY IV FLUSH 10/07/16 09:00 11/01/16 08:34 (NS Flush) See Protocol UNSCH PRN IV FLUSH 10/06/16 12:00 Sodium Chloride UNSCH PRN IV FLUSH 10/06/16 12:00 (Levophed Inj/NS 250 ml Inj) 254 ml @ 0 mls/hr TITRATE IV 10/06/16 18:00 10/28/16 20:14 (Cathflo Activase Inj) 2 mg UNSCH PRN IV FLUSH 10/19/16 16:15 10/19/16 18:43 Diphenhydramine HCl 6.25 mg 6.25 mg Q4H PRN IV PUSH 10/19/16 19:15 11/01/16 03:43 (NS 1000 ml Inj) 1,000 ml @ 120 mls/hr Q8H20M IV 10/21/16 08:30 11/01/16 06:14 (Sodium Chloride) 3 gm Q8HR PO 10/22/16 14:00 11/01/16 04:29 (Florinef) 0.2 mg Q12HR PO 10/22/16 21:00 11/01/16 08:33 Enoxaparin Sodium 40 mg 40 mg Q24H SQ 10/23/16 21:00 10/31/16 20:11 Potassium Chloride 100 ml @ 50 mls/hr Q2H PRN IV 10/24/16 15:15 11/01/16 05:48 (KCl 20 Meq Premix Inj) 100 ml @ 50 mls/hr Q2H PRN IV 10/24/16 15:15 10/31/16 16:39 Potassium Bicarb/ Potassium Chloride 50 meq 50 meq UNSCH PRN PO 10/24/16 15:15 Potassium Chloride 100 ml @ 25 mls/hr UNSCH PRN IV 10/24/16 15:15 10/26/16 21:47 Potassium Chloride 100 ml @ 50 mls/hr Q2H PRN IV 10/24/16 15:15 (Magnesium Sulfate Inj/NS Inj) 100 ml @ 50 mls/hr UNSCH PRN IV 10/24/16 15:15 Magnesium Oxide 800 mg 800 mg UNSCH PRN PO 10/24/16 15:15 (Magnesium Sulfate Inj/NS Inj) 100 ml @ 50 mls/hr UNSCH PRN IV 10/24/16 15:15 Potassium Phosphate 2000 mg 2,000 mg Q4H PRN PO 10/24/16 15:15 (Sodium Phosphate Inj/NS 250 ml Inj) 250 ml @ 42 mls/hr UNSCH PRN IV 10/24/16 15:15 Potassium Phosphate 2000 mg 2,000 mg UNSCH PRN PO/TUBE 10/24/16 15:15 Potassium Phosphate 30 mmol/ Sodium Chloride 260 ml @ 42 mls/hr UNSCH PRN IV 10/24/16 15:15 (Maxipime Inj/NS Inj) 100 ml @ 200 mls/hr Q8HR IV 10/30/16 14:00 11/01/16 04:29 (fentaNYL INJ) 50 mcg Q3H PRN IV 10/30/16 15:15 11/01/16 03:43 (Colace Liq) 100 mg Q12H G-TUBE 10/31/16 17:00 10/31/16 17:24 (Meir Sánchez) Medical Decision Making MDM Remarks 1. Stable neurologic function 2. 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 Left basal ganglia region CVA primarily per CT 4. CSF cultures w/o any growth to date 5. Max temp 98.6 6. Enterobacter cloacae in sputum from (Meir Sánchez) Plan Plan Remarks Cognitive/speech therapy eval & tx Activity OOB to cardiac chair Continue PT & OT Continue abx per Surgical Chainstitch Felled Seam Operator Continue SBP 160-180 mm Hg per Surgical Chainstitch Felled Seam Operator Continue Keppra for probable seizure activity Okay for Lovenox from NSGY standpoint Ulcer prophylaxis Will d/c q12h sodium level (Meir Sánchez) Attending Statement I have personally seen and examined the patient on the date of this note. Pertinent documentation and study results have been reviewed by the undersigned. I have personally developed the treatment plan and performed medical decision making. Agree with findings, exam, and treatment plan as noted above. Patient remains mildly responsive, moves all extremities with stimulation, questionably grasping to command today. May discontinue routine sodium. Maintain blood pressure and sodium within normal parameters.. (Gino Mace MD) Meir Sánchez November 01, 2016 10:42 Gino Mace MD November 01, 2016 18:47
--- NOTE | 2016-11-01 10:56 | HHI.CCPN ---
Subjective Remarks/Hospital Course 51 year old male presents with being brought in as a trauma alert due to a head injury with altered mental status and a diminished GCS. The patient was in the bathroom and fell and hit his head. This was an unwitnessed fall. According to the patient's the patient had been unresponsive for approximately 15 minutes by the time ambulance services arrived. When they arrived the patient was noted to be a GCS of 14, however his mentation would wax and wane and go down as low as 3 again. On arrival to the emergency department he felt extremely nauseated. The CT of the head revealed diffuse subarachnoid bleed. 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 CT head today with some ventricular blood. ICP controlled and patient tolerates lightening of sedation. Volume loaded to maintain SBP > 130s. Opens eyes to voice. 10/07: BP controlled. TCDs to be done today. 10/08: BP control good. Well hydrated. No TCD evidence of spasm. 10/09: TCD today pending. CPP good. No seizure activity. Remains well hydrated. 10/10: TCDs no vasospasm. Remains well hydrated, well perfused. Some peripheral edema as expected. 10/11: Hemodynamics good. Bladder spasm continues. Try Flomax - an alpha kendall , will not impair cerebral vessels. 10/12: Episode of sepsis last night from obstructed Paul, JONH evident. Much improved now. 10/13: JONH improving. Narrow abx to GNR. 10/14: Aztreonam started for sputum, urine. CT Head acceptable. 10/15: No change in neuro status. BP control good. 10/16: Remains sedated, orally intubated on mechanical ventilation. Ventriculostomy in place. Underwent angiogram with injection of verapamil intra -arterial for minimal vasospasm on 10/15 10/17: Remains sedated, orally intubated on mechanical ventilation. Ventriculostomy drained 65 cc over 8 hours overnight. 10/18: off sedation. withdraws to pain. does not follow commands. per nursing, this is an exam change and he was previously following commands. 10/19: continues off sedation. ICP stable around 5. neuro exam stable. TCDs yesterday with questionable early spasm, but given stable neuro exam, decided to repeat TCD today to eval trend. 10/20: off sedation. taken yesterday for angio with IA verapamil for left MCA, SRI spasm. 10/21: spiked fever yesterday, white cultured. empirically started on broad spectrum abx. CSF sent for culture. initial CSF appeared cloudy but cell count and gram stain reassuring. TCDs yesterday without evidence of vasospasm. this AM sodium dropped from 147 to 139 with net -1L. likely early salt wasting, although up to this point urine studies have not shown concern for this up to now. 10/22: uop increased and sodium continues to downtrend despite salt tabs and ivf. still net -1L. urine studies concerning for salt wasting. sputum with enterobacter. neuro exam still stable. TCDs today without overt evidence of spasm. 10/23: still salt wasting. net -500cc/24h. aggressively replacing volume loss and sodium. TCDs today without any evidence of spasm and PI/LI now down to normal ranges. talked with Dr. Prater and while we have a window without spasm, will proceed with tracheostomy today. Likely PEG tube tomorrow. stable neurologic exam. 10/24: Na today 149, 3% at 10 ml per hour. s/p PEG today and still under heavy sedation. Was following commands to RN prior to receiving propofol for sedation. Trach done yesterday. -[id number] UO , getting IVF replacement 10/25: continues to have high UO 12L in 24 hours. D/w Dr. Mace -probably antidiuresis. Na 145. Remains on NS at 150 ml per hour and 3% at 10 ml per hour (increased 3% to 20 ml pr hour)/ weekly following commands in all 4 extremities , partial eye opening to command. Remains on Levophed at 8 mcg per min 10/26: Slightly less responsive today, getting TCDs. UO 7L -decreased from yesterday. Na 144 today. Remains on 8 mcg/min of Levophed to maintain cerebral perfusion. SUBJECTIVE 10/27: Currently on T piece. Remains somnolent. Intermittently follows commands for the nurses. Remains on 1.5 mcg/min Levophed to maintain cerebral perfusion 10/28/16: Remains on CPAP today. Followed commands in upper extremities for RN today. More somnolent and not following commands to me. On 6 mcg per min of Levophed to maintain CPP 10/29/16: Tolerating T piece 2-3 hours a day. Currently on T piece. Somnolent. Patient did follow commands earlier for the nurse. Na 146. UO normalizing 10/30: More awake today with partial eye opening. Followed commands all 4 ext. Na 148. Will stop 3% saline 10/31: Tolerating TP well today. Neuro unchanged. No clinical evidence of vasospasm. Na today pending. Getting 1U PRBC for Hb 7 11/01: Sitting up, now on t-piece. Awaiting LTAC. Objective Vital Signs Date Time Temp Pulse Resp B/P Pulse Ox O2 Delivery O2 Flow Rate FiO2 11/01/16 10:10 95 T-piece 6.00 40 11/01/16 10:00 97 11/01/16 08:00 98.1 18 154/94 Intake and Output 10/31/16 10/31/16 11/01/16 08:00 16:00 00:00 Intake Total 1352 ml 1010 ml 1111 ml Output Total 1950 ml 3300 ml 3250 ml Balance -598 ml -2290 ml -2139 ml Result Diagram: 11/01/16 0440 11/01/16 0440 Imaging Last 24 hours Impressions Transcranial Doppler Study Complete 10/23/16 0700 Signed Impressions: Service Date/Time: Sunday, October 23, 2016 07:36 - CONCLUSION: Normal Lindegaard and Gregorio ratios, spasm is not suspected. Tim Garcia MD Objective Remarks GENERAL: Middle-aged male lying in bed, s/p trach. SKIN: Dry. HEAD: Normocephalic. EYES: Pupils are 2 mm and reactive bilaterally. NECK: Supple, trachea midline. Trach site clean, dry. CARDIOVASCULAR: Regular rate and rhythm. No JVD. RESPIRATORY:On Tp today, Breath sounds equal bilaterally. Clear, no wheezes or crackles. Good bilateral excursions. GASTROINTESTINAL: Abdomen soft, non-tender, nondistended. BS active. No guarding. EXTREMITIES: Nonfocal clubbing cyanosis or edema, well perfused. NEURO: Partial eye opening to sternal rub. Follows commands in bilateral upper and lower extremities. Withdraws to pain A/P Problem List: (1) 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 ICD Code: I60.8 Status: Acute (2) Intracranial hemorrhage ICD Code: I62.9 Status: Acute (3) Hypertension ICD Code: I10 Status: Acute Assessment and Plan Assessment: 51yM with aneurysmal SAH, post-bleed day , s/p basilar artery coiling 10/05. S/p IA Verapamil 10/15 and 10/19 for cerebral vasospasm. There is some improvement in encephalopathy, acute hypoxic respiratory failure. Resolving sepsis. critically ill. Now in possible cerebral salt wasting. Continue salt tabs, 3% saline, florinef, and NS 150 ml per hour. strict I/Os. TCDs per N/S. s/p Trach 10/23 and PEG 10/24. Also continues to grow Enterobacter in the sputum Plan: Neuro: Acute encephalopathy Aneurysmal Subarachnoid bleed 10/05, Basilar Aneurysm Cerebral Vasospasm - Núñez Veliz 5 Lucas grade 3. - Basilar tip coiled. - Nimodipine. Status post intra-arterial verapamil for vasospasm on 10/15, 10/19 - Pravachol - SBP target reduced by Dr. Mace to 120-160. - TCD's per N/S Dr Mace. No recent vasospasm - Neuro exam improving, weakly following commands all 4 ext Respiratory: Acute Hypoxic and Hypercarbic Respiratory Failure - Intubated for airway protection - s/p trach 10/23 now on CPAP/intermittent TP - Tolerating TP 2-3 hours per day - DuoNeb's as needed for wheezing, start scheduled DuoNeb as well CV: Septic Shock- resolved. - goal SBP 120-[address] mace - Off Levophed Renal: Possible Cerebral Salt Wasting - UO has decreased now to normal range. About 5L in 24 hours - Goal euvolemia - Paul for accurate I/Os Strict I/Os - NaCl tabs 3gm q8h - Florinef 0.2mg q12h - NS @ 120 ml per hour 10/30. DC 3% - strict I/Os q1h - urine studies 10/21 consistent with cerebral salt wasting: at that time was patient intravascularly hypovolemic on clinical exam - NaCl boluses as needed to maintain euvolemia. FEN/GI: Acute Protein Calorie Malnutrition- mild -- vital high protein 40mL/hr. -- daily BMP -- ICU electrolyte protocol. Heme/ID: Fever Leukocytosis prior UTI -- s/p full course abx -- 10/20 sputum culture- Enterobacter, some resistance. sensitive to Cefepime. -- 10/20 urine culture- NGTD -- 10/20 CSF: 0 wbc, glu 111, prot 27.8, culture NGTD -- 10/20 Blood cx: NGTD -- 10/21 CSF: NGTD. -- Dr. Mace d/c EVD 10/21 -- d/c d vancomycin and Flagyl. -- Anticipated completion of 10 day course of cefepime 2gm iv q8hr was on 10/29, repeat sputum cx GNR, ID pending. Continue cefepime for now Endocrine: Hyperglycemia of critical illness -- SSI Prophylaxis: - Teds SCDs - Started Lovenox per nsg 10/23/16 - Protonix IV Dispo: Awaiting LTAC approval. Stable respiratory and hemodynamic function. Problem Qualifiers (1) Hypertension: Qualified Code: I10 - Essential hypertension Dave Barragan MD November 01, 2016 10:56
--- NOTE | 2016-11-01 12:08 | HHI.PR ---
Neuropsych Progress Notes/Response to Tx Contents of Sessions: Level of Consciousness Time with Patient: 15 minutes Premorbid psychological status Premorbid Cognitive, Emotional and Behavioral Status: Unable to Assess. The patient past history is unknown as there has been no family present. Behavioral Reactions of Patient and Family/Support System: Unable to Assess. The patients family is not present. Emotional/Behavioral Status of Patient and Family/Support System: Unable to Assess. Pertinent issues, if appropriate to this patients clinical care, are described in detail above. Maximizing acute care outcome It is recommended that the patient be monitored for emergent behavioral impulsivity as the medical condition evolves. This patients neuropathological challenges may limit their rehabilitation potential going forward, and these challenges will require specialized therapeutic skills to maximize outcome. Anticipated Problems Ongoing areas of concern will include behavioral impulsivity, lack of insight and judgment, which is expected to improve with time and treatment. Treatment Plan This clinician will continue to follow with you throughout the course of this patients acute care stay, and I will be available to meet with the patients family/support system to facilitate their understanding and the ongoing care of their family member. The goals of neuropsychological intervention shall be both educational and supportive to the family/support system as is deemed clinically appropriate. Impression This patient has suffered a significant traumatic brain injury secondary to a fall on 10/05/2016. He is expected to have residual neurocognitive deficits, and will likely require some level of neuro rehabilitation following his acute stay and medical stabilization. Diagnosis: (1) Major neurocognitive disorder due to vascular disease, without behavioral disturbance, severe Status: Acute Progress Note Narrative Ongoing follow-up of patient seen bedside. This is day 28 post injury. His diagnosis was revised to reflect the cerebrovascular etiology of his major neurocognitive disorder. The patient was somnolent, and was moving x 4. Reports indicate that he is more awake and follows. I will continue to follow. Jeremy Workman PhD November 01, 2016 12:08
[2016-11-01] MEDS: ENOXAPARIN SODIUM 40 MG/0.4 ML SYRINGE SQ SCH (20:01)
[2016-11-01] MEDS: ALTEPLASE RECOMBINANT 2 MG VIAL IV FLUSH PRN (21:47)
[2016-11-02] VITALS (16 sets, daily range): BP systolic 132–166; BP diastolic 79–95; PULSE 89–100; RESP 22–32; TEMP 98.1–99.1; O2SAT 93–100
[2016-11-02] MEDS: SODIUM CHLOR 0.9% 1000 ML INJ 1,000 ML IV SCH ×2 (02:58→16:01)
[2016-11-02] MEDS: CHLORHEXIDINE GLUCONATE 2 % 1 PACK (2 CLOTHS) TOP SCH (02:58)
[2016-11-02] MEDS: LABETALOL HCL 100 MG/20 ML VIAL IV PUSH PRN ×3 (03:00→21:35)
[2016-11-02] MEDS: DOCUSATE SODIUM 100 MG/10 ML UDC G-TUBE SCH ×2 (04:50→16:01)
[2016-11-02] MEDS: SODIUM CHLORIDE 1 GRAM TAB PO SCH ×3 (04:50→21:34)
[2016-11-02] MEDS: CEFEPIME INJ 2,000 MG in SODIUM CHLORIDE 0.9% INJ 100 ML IV SCH ×3 (04:50→21:35)
[2016-11-02] MEDS: SODIUM CHLORIDE 0.9% FLUSH 10 ML FLUSH IV FLUSH SCH (08:39)
[2016-11-02] MEDS: ARTIFICIAL TEARS OPTH SOLN 15 ML BTL EACH EYE SCH ×3 (08:40→16:02)
[2016-11-02] MEDS: PRAVASTATIN SOD 40 MG TAB PO SCH (08:46)
[2016-11-02] MEDS: levETIRAcetam INJ 500 MG in SODIUM CHLORIDE 0.9% INJ 100 ML IV SCH ×2 (08:46→20:11)
[2016-11-02] MEDS: FLUDROCORTISONE ACETATE 0.1 MG TAB PO SCH ×2 (08:46→20:12)
[2016-11-02] MEDS: PANTOPRAZOLE SODIUM 40 MG VIAL IV SCH (08:46)
--- NOTE | 2016-11-02 08:57 | HHI.NSPN ---
(Meir Sánchez HAND BOOKED FOLDER AND STITCHER) Note Status Status: Progress Note (Meir Sánchez) Interval History Interval History 51 year old male presents with being brought in as a trauma alert due to a head injury with altered mental status and a diminished GCS. The patient was in the bathroom and fell and hit his head. This was an unwitnessed fall. According to the patient's the patient had been unresponsive for approximately 15 minutes by the time ambulance services arrived. When they arrived the patient was noted to be a GCS of 14, however his mentation would wax and wane and go down as low as 3 again. On arrival to the emergency department he felt extremely nauseated. The CT of the head revealed diffuse subarachnoid bleed. Emergently intubated in the trauma bay. Possible seizure activity. Intubated in the emergency room. 10/05/16: Endovascular coiling 10/07/16 rinse intubated and sedated. Ventriculostomy in place 10/09/16: Remains intubated and sedated. Increased agitation with attempts at sedation vacation 10/17/16: Pupils 2 mm. Intubated and sedated. Somewhat more responsive with decreased sedation. External ventricular drain and closed to reservoir again today. 10/19/16: TCD with vasospasm, to angio with 10 mg Verapamil IA given. 10/20/16: Patient with fevers up to 102.8 per Nursing and cultures sent, Nursing reports CSF milky & with sediment. TCD being repeated this afternoon due to vast difference from that done this morning and yesterday. Heavy Equipment Operator Apprentice increased SBP parameters to 180-200 mm Hg to help overcome vasospasms. No increase in ICP. 10/21/16: Still with elevated temp but not as high. TCD yesterday demonstrated resolution of vasospasms but today it demonstrated a right SRI vasospasm. Patient with facial grimacing and attempted eye opening. CSF specimen sent yesterday w/o any organisms or WBCs seen on Gram stain. 10/23/16: Trach done 10/24/16: PEG done at bedside prior to being seen. Nursing reports prior to sedation he was following commands to all extremities although right was weaker. Mild vasospasm per TCD. 10/25/16: No evident distress. Noted to move BLE & slight LUE spontaneously. Did open eyes partially after having been stimulated. TCD being done. 10/26/16: No evident distress, attempted eye opening to verbal & attempted to follow some commands, some spontaneous movements noted BLE & LUE. TCD being done. 10/27/16: No apparent distress, no eye opening, follows some commands. 10/28/16: Remains tracheed, NAD, follows some commands, spontaneous movement of BLE & LUE noted. 10/29/16: Remains stable follows some commands, spontaneous movement of BLE & LUE noted 10/31/16: Patient trached and on T-piece when seen, follows commands, spontaneous movement of extremities noted. Did attempt to mouth words. 11/01/16: Patient doing well, on T-piece, follows commands, moving both feet spontaneously. Nursing reports he is intermittently following command and mouthing words. 11/02/16: Patient continues to do well, on T-piece, follows some commands, he does turn his head in direction of practitioner's voice. (Meir Sánchez) Labs, Micro, & Vital Signs Constitutional Vital Signs Date Time Temp Pulse Resp B/P Pulse Ox O2 Delivery O2 Flow Rate FiO2 11/02/16 06:00 90 11/02/16 05:35 98 T-piece 40 11/02/16 04:00 92 11/02/16 04:00 98.6 92 32 139/81 94 11/02/16 04:00 40 11/02/16 02:00 100 11/02/16 00:00 99.0 100 32 161/91 93 11/02/16 00:00 100 11/02/16 00:00 40 11/01/16 22:00 102 11/01/16 20:13 97 T-piece 6.00 40 11/01/16 20:00 100 11/01/16 20:00 97.5 100 36 158/100 97 11/01/16 20:00 40 11/01/16 19:00 97 T-Piece 40 11/01/16 18:00 99 11/01/16 16:00 97 11/01/16 16:00 97.7 97 30 162/98 96 11/01/16 14:00 99 11/01/16 12:00 100 11/01/16 12:00 97.5 100 30 169/99 98 11/01/16 10:10 95 T-piece 6.00 40 11/01/16 10:00 97 11/02/16 07:00 Intake Total 3127 ml Output Total 4350 ml Balance -1223 ml (Meir Sánchez) Review of Systems/Exam ROS Unable to obtain ROS due to mental status & being intubated. Exam Resp: Respirations CTAB w/o W/R/R, equal excursion, non-laboured, trached & on T -piece. CV: RRR w/o M/G/R, radial & pedal pulses 2+ bilaterally, cap refill < 2 sec. Monitor is sinus rhythm w/o any ectopy noted GI: Abdomen soft, nontender, bowel sounds all quads, PEG tube w/enteral feeds, fecal mgmt system in place. : Paul cath to BSD. Appears to have scrotal & groin fungal infection, skin beefy red in appearance. Neuro: Turns head to sound of practitioner's voice. No attempted eye opening to command, PERRLA. Spontaneous movement of both feet noted as well as to command. Weak left hand grasp but no attempt on right. Ventriculostomy incision site dry w/o any evident drainage, erythema or streaking. (Meir Sánchez) Medications Current Medications Current Medications Medications (Trade) Dose Ordered Sig/Nava Route Start Time Stop Time Status Last Admin (Tylenol) 650 mg Q6H PRN PO 10/05/16 02:45 10/29/16 12:56 (Protonix Inj) 40 mg DAILY IV 10/05/16 09:00 11/01/16 08:33 (Tears Naturale Opth Soln) 1 drop TID EACH EYE 10/05/16 09:00 11/01/16 17:30 (Zofran Inj) 4 mg Q6H PRN IV 10/05/16 02:45 Miscellaneous Information 1 Q361D XX 10/05/16 02:45 10/05/16 02:45 (Chlorhexidine 2% Cloth) Taper DAILY@04 TOP 10/05/16 04:00 10/01/17 03:59 4/28/17 04:00 Chlorhexidine Gluconate 3 pack 3 pack UNSCH PRN TOP 10/05/16 02:45 Levetriacetam 500 mg/Sodium Chloride 105 ml @ 420 mls/hr Q12HR IV 10/05/16 09:00 11/01/16 20:01 (Cardene Inj/NS 250 ml Inj) 260 ml @ 0 mls/hr TITRATE IV 10/05/16 02:45 10/18/16 11:23 (Trandate Inj) 10 mg Q4H PRN IV PUSH 10/05/16 02:45 11/02/16 03:00 (Pravachol) 40 mg DAILY PO 10/05/16 09:00 11/01/16 08:34 (NS Flush) See Protocol DAILY IV FLUSH 10/07/16 09:00 11/01/16 08:34 (NS Flush) See Protocol UNSCH PRN IV FLUSH 10/06/16 12:00 Sodium Chloride UNSCH PRN IV FLUSH 10/06/16 12:00 (Levophed Inj/NS 250 ml Inj) 254 ml @ 0 mls/hr TITRATE IV 10/06/16 18:00 10/28/16 20:14 (Cathflo Activase Inj) 2 mg UNSCH PRN IV FLUSH 10/19/16 16:15 11/01/16 21:47 Diphenhydramine HCl 6.25 mg 6.25 mg Q4H PRN IV PUSH 10/19/16 19:15 11/01/16 23:53 (NS 1000 ml Inj) 1,000 ml @ 60 mls/hr [id number] IV 10/21/16 08:30 11/02/16 02:58 (Sodium Chloride) 3 gm Q8HR PO 10/22/16 14:00 11/02/16 04:50 (Florinef) 0.2 mg Q12HR PO 10/22/16 21:00 11/01/16 20:01 Enoxaparin Sodium 40 mg 40 mg Q24H SQ 10/23/16 21:00 11/01/16 20:01 Potassium Chloride 100 ml @ 50 mls/hr Q2H PRN IV 10/24/16 15:15 11/01/16 05:48 (KCl 20 Meq Premix Inj) 100 ml @ 50 mls/hr Q2H PRN IV 10/24/16 15:15 10/31/16 16:39 Potassium Bicarb/ Potassium Chloride 50 meq 50 meq UNSCH PRN PO 10/24/16 15:15 Potassium Chloride 100 ml @ 25 mls/hr UNSCH PRN IV 10/24/16 15:15 10/26/16 21:47 Potassium Chloride 100 ml @ 50 mls/hr Q2H PRN IV 10/24/16 15:15 (Magnesium Sulfate Inj/NS Inj) 100 ml @ 50 mls/hr UNSCH PRN IV 10/24/16 15:15 Magnesium Oxide 800 mg 800 mg UNSCH PRN PO 10/24/16 15:15 (Magnesium Sulfate Inj/NS Inj) 100 ml @ 50 mls/hr UNSCH PRN IV 10/24/16 15:15 Potassium Phosphate 2000 mg 2,000 mg Q4H PRN PO 10/24/16 15:15 (Sodium Phosphate Inj/NS 250 ml Inj) 250 ml @ 42 mls/hr UNSCH PRN IV 10/24/16 15:15 Potassium Phosphate 2000 mg 2,000 mg UNSCH PRN PO/TUBE 10/24/16 15:15 Potassium Phosphate 30 mmol/ Sodium Chloride 260 ml @ 42 mls/hr UNSCH PRN IV 10/24/16 15:15 (Maxipime Inj/NS Inj) 100 ml @ 200 mls/hr Q8HR IV 10/30/16 14:00 11/02/16 04:50 (fentaNYL INJ) 50 mcg Q3H PRN IV 10/30/16 15:15 11/02/16 02:57 (Colace Liq) 100 mg Q12H G-TUBE 10/31/16 17:00 10/31/16 17:24 (Meir Sánchez) Medical Decision Making MDM Remarks 1. Stable neurologic function 2. 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 Left basal ganglia region CVA primarily per CT 4. CSF cultures w/o any growth to date 5. Max temp 99.0 6. Enterobacter cloacae in sputum from (Meir Sánchez) Plan Plan Remarks Cognitive/speech therapy eval & tx Activity OOB to cardiac chair Continue PT & OT Continue abx per Surgical Heavy Equipment Operator Apprentice Continue Keppra for probable seizure activity Okay for Lovenox from NSGY standpoint Ulcer prophylaxis Okay to keep SBP between 120-160 mm Hg Okay for patient to be [facility] from NSGY's perspective ( Meir Sánchez) Attending Statement I have personally seen and examined the patient on the date of this note. Pertinent documentation and study results have been reviewed by the undersigned. I have personally developed the treatment plan and performed medical decision making. Agree with findings, exam, and treatment plan as noted above. Patient without significant improvement in neurologic exam over the past few days. No neurosurgical intervention planned at this point. Stable for discharge to LTAC (Gino Mace MD) Meir Sánchez November 02, 2016 08:57 Gino Mace MD November 02, 2016 19:38
--- NOTE | 2016-11-02 09:17 | HHI.CCPN ---
Subjective Remarks/Hospital Course 51 year old male presents with being brought in as a trauma alert due to a head injury with altered mental status and a diminished GCS. The patient was in the bathroom and fell and hit his head. This was an unwitnessed fall. According to the patient's the patient had been unresponsive for approximately 15 minutes by the time ambulance services arrived. When they arrived the patient was noted to be a GCS of 14, however his mentation would wax and wane and go down as low as 3 again. On arrival to the emergency department he felt extremely nauseated. The CT of the head revealed diffuse subarachnoid bleed. 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 CT head today with some ventricular blood. ICP controlled and patient tolerates lightening of sedation. Volume loaded to maintain SBP > 130s. Opens eyes to voice. 10/07: BP controlled. TCDs to be done today. 10/08: BP control good. Well hydrated. No TCD evidence of spasm. 10/09: TCD today pending. CPP good. No seizure activity. Remains well hydrated. 10/10: TCDs no vasospasm. Remains well hydrated, well perfused. Some peripheral edema as expected. 10/11: Hemodynamics good. Bladder spasm continues. Try Flomax - an alpha kendall , will not impair cerebral vessels. 10/12: Episode of sepsis last night from obstructed Paul, JONH evident. Much improved now. 10/13: JONH improving. Narrow abx to GNR. 10/14: Aztreonam started for sputum, urine. CT Head acceptable. 10/15: No change in neuro status. BP control good. 10/16: Remains sedated, orally intubated on mechanical ventilation. Ventriculostomy in place. Underwent angiogram with injection of verapamil intra -arterial for minimal vasospasm on 10/15 10/17: Remains sedated, orally intubated on mechanical ventilation. Ventriculostomy drained 65 cc over 8 hours overnight. 10/18: off sedation. withdraws to pain. does not follow commands. per nursing, this is an exam change and he was previously following commands. 10/19: continues off sedation. ICP stable around 5. neuro exam stable. TCDs yesterday with questionable early spasm, but given stable neuro exam, decided to repeat TCD today to eval trend. 10/20: off sedation. taken yesterday for angio with IA verapamil for left MCA, SRI spasm. 10/21: spiked fever yesterday, white cultured. empirically started on broad spectrum abx. CSF sent for culture. initial CSF appeared cloudy but cell count and gram stain reassuring. TCDs yesterday without evidence of vasospasm. this AM sodium dropped from 147 to 139 with net -1L. likely early salt wasting, although up to this point urine studies have not shown concern for this up to now. 10/22: uop increased and sodium continues to downtrend despite salt tabs and ivf. still net -1L. urine studies concerning for salt wasting. sputum with enterobacter. neuro exam still stable. TCDs today without overt evidence of spasm. 10/23: still salt wasting. net -500cc/24h. aggressively replacing volume loss and sodium. TCDs today without any evidence of spasm and PI/LI now down to normal ranges. talked with Dr. Prater and while we have a window without spasm, will proceed with tracheostomy today. Likely PEG tube tomorrow. stable neurologic exam. 10/24: Na today 149, 3% at 10 ml per hour. s/p PEG today and still under heavy sedation. Was following commands to RN prior to receiving propofol for sedation. Trach done yesterday. -21460 UO , getting IVF replacement 10/25: continues to have high UO 12L in 24 hours. D/w Dr. Mace -probably antidiuresis. Na 145. Remains on NS at 150 ml per hour and 3% at 10 ml per hour (increased 3% to 20 ml pr hour)/ weekly following commands in all 4 extremities , partial eye opening to command. Remains on Levophed at 8 mcg per min 10/26: Slightly less responsive today, getting TCDs. UO 7L -decreased from yesterday. Na 144 today. Remains on 8 mcg/min of Levophed to maintain cerebral perfusion. SUBJECTIVE 10/27: Currently on T piece. Remains somnolent. Intermittently follows commands for the nurses. Remains on 1.5 mcg/min Levophed to maintain cerebral perfusion 10/28/16: Remains on CPAP today. Followed commands in upper extremities for RN today. More somnolent and not following commands to me. On 6 mcg per min of Levophed to maintain CPP 10/29/16: Tolerating T piece 2-3 hours a day. Currently on T piece. Somnolent. Patient did follow commands earlier for the nurse. Na 146. UO normalizing 10/30: More awake today with partial eye opening. Followed commands all 4 ext. Na 148. Will stop 3% saline 10/31: Tolerating TP well today. Neuro unchanged. No clinical evidence of vasospasm. Na today pending. Getting 1U PRBC for Hb 7 11/01: Sitting up, now on t-piece. Awaiting LTAC. 11/02: Ni material change. Awaiting LTAC. Objective Vital Signs Date Time Temp Pulse Resp B/P Pulse Ox O2 Delivery O2 Flow Rate FiO2 11/02/16 06:00 90 11/02/16 05:35 98 T-piece 40 11/02/16 04:00 98.6 32 139/81 11/01/16 20:13 6.00 Intake and Output 11/01/16 11/01/16 11/02/16 08:00 16:00 00:00 Intake Total 1558 ml 1359 ml 842 ml Output Total 450 ml 1450 ml 1300 ml Balance 1108 ml -91 ml -458 ml Result Diagram: 11/01/16 0440 11/01/16 0440 Imaging Last 24 hours Impressions Transcranial Doppler Study Complete 10/23/16 0700 Signed Impressions: Service Date/Time: Sunday, October 23, 2016 07:36 - CONCLUSION: Normal Lindegaard and Gregorio ratios, spasm is not suspected. Tim Garcia MD Objective Remarks GENERAL: Middle-aged male lying in bed, s/p trach. SKIN: Dry. HEAD: Normocephalic. EYES: Pupils are 2 mm and reactive bilaterally. NECK: Supple, trachea midline. Trach site clean, dry. CARDIOVASCULAR: Regular rate and rhythm. No JVD. RESPIRATORY:On Tp today, Breath sounds equal bilaterally. Clear, no wheezes or crackles. Good bilateral excursions. GASTROINTESTINAL: Abdomen soft, non-tender, nondistended. BS active. No guarding. EXTREMITIES: Nonfocal clubbing cyanosis or edema, well perfused. NEURO: Partial eye opening to sternal rub. Follows commands in bilateral upper and lower extremities. Withdraws to pain A/P Problem List: (1) 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 ICD Code: I60.8 Status: Acute (2) Intracranial hemorrhage ICD Code: I62.9 Status: Acute (3) Hypertension ICD Code: I10 Status: Acute Assessment and Plan Assessment: 51yM with aneurysmal SAH, post-bleed day , s/p basilar artery coiling 10/05. S/p IA Verapamil 10/15 and 10/19 for cerebral vasospasm. There is some improvement in encephalopathy, acute hypoxic respiratory failure. Resolving sepsis. critically ill. Now in possible cerebral salt wasting. Continue salt tabs, 3% saline, florinef, and NS 150 ml per hour. strict I/Os. TCDs per N/S. s/p Trach 10/23 and PEG 10/24. Also continues to grow Enterobacter in the sputum Plan: Neuro: Acute encephalopathy Aneurysmal Subarachnoid bleed 10/05, Basilar Aneurysm Cerebral Vasospasm - Núñez Veliz 5 Lucas grade 3. - Basilar tip coiled. - Nimodipine. Status post intra-arterial verapamil for vasospasm on 10/15, 10/19 - Pravachol - SBP target reduced by Dr. Mace to 120-160. - TCD's per N/S Dr Mace. No recent vasospasm - Neuro exam improving, weakly following commands all 4 ext Respiratory: Acute Hypoxic and Hypercarbic Respiratory Failure - Intubated for airway protection - s/p trach 10/23 now on CPAP/intermittent TP - Tolerating TP 2-3 hours per day - DuoNeb's as needed for wheezing, start scheduled DuoNeb as well CV: Septic Shock- resolved. - goal SBP 120-[address] mace - Off Levophed Renal: Possible Cerebral Salt Wasting - UO has decreased now to normal range. About 5L in 24 hours - Goal euvolemia - Paul for accurate I/Os Strict I/Os - NaCl tabs 3gm q8h - Florinef 0.2mg q12h - NS @ 120 ml per hour 10/30. DC 3% - strict I/Os q1h - urine studies 10/21 consistent with cerebral salt wasting: at that time was patient intravascularly hypovolemic on clinical exam - NaCl boluses as needed to maintain euvolemia. FEN/GI: Acute Protein Calorie Malnutrition- mild -- vital high protein 40mL/hr. -- daily BMP -- ICU electrolyte protocol. Heme/ID: Fever Leukocytosis prior UTI -- s/p full course abx -- 10/20 sputum culture- Enterobacter, some resistance. sensitive to Cefepime. -- 10/20 urine culture- NGTD -- 10/20 CSF: 0 wbc, glu 111, prot 27.8, culture NGTD -- 10/20 Blood cx: NGTD -- 10/21 CSF: NGTD. -- Dr. Mace d/c EVD 10/21 -- d/c d vancomycin and Flagyl. -- Anticipated completion of 10 day course of cefepime 2gm iv q8hr was on 10/29, repeat sputum cx GNR, ID pending. Continue cefepime for now Endocrine: Hyperglycemia of critical illness -- SSI Prophylaxis: - Teds SCDs - Started Lovenox per nsg 10/23/16 - Protonix IV Dispo: Awaiting LTAC approval. Stable respiratory and hemodynamic function. Problem Qualifiers (1) Hypertension: Qualified Code: I10 - Essential hypertension Dave Barragan MD November 02, 2016 09:17
--- NOTE | 2016-11-02 14:57 | HHI.PR ---
Neuropsych Progress Notes/Response to Tx Premorbid psychological status Premorbid Cognitive, Emotional and Behavioral Status: Unable to Assess. The patient past history is unknown as there has been no family present. Behavioral Reactions of Patient and Family/Support System: Unable to Assess. The patients family is not present. Emotional/Behavioral Status of Patient and Family/Support System: Unable to Assess. Pertinent issues, if appropriate to this patients clinical care, are described in detail above. Maximizing acute care outcome It is recommended that the patient be monitored for emergent behavioral impulsivity as the medical condition evolves. This patients neuropathological challenges may limit their rehabilitation potential going forward, and these challenges will require specialized therapeutic skills to maximize outcome. Anticipated Problems Ongoing areas of concern will include behavioral impulsivity, lack of insight and judgment, which is expected to improve with time and treatment. Treatment Plan This clinician will continue to follow with you throughout the course of this patients acute care stay, and I will be available to meet with the patients family/support system to facilitate their understanding and the ongoing care of their family member. The goals of neuropsychological intervention shall be both educational and supportive to the family/support system as is deemed clinically appropriate. Impression This patient has suffered a significant traumatic brain injury secondary to a fall on 10/05/2016. He is expected to have residual neurocognitive deficits, and will likely require some level of neuro rehabilitation following his acute stay and medical stabilization. Diagnosis: (1) Major neurocognitive disorder due to vascular disease, without behavioral disturbance, severe Status: Acute Discharge Summary Reason for Referral: The patient is a 51 year old unknown handed male status post traumatic injury sustained on 10/05/2016. Reportedly this patient was in the bathroom and fell, and was unresponsive for a time. He had a GCS of 14 when EMS arrived with a waxing and waning presentation. Head CT was significant for diffuse SAH. Clinical course was notable for agitation. Eventually, it was determined that the patient had a cerebrovascular event. His course was notable for intermittent following of commands, and eventually improving to following x 4, although this examiner never observed such. At day 29, this patient was discharged from a neuropsychology perspective, as he was to be transferred to an LTAC. Diagnostic impressions at that time were that the patients cognitive and behavioral status met criteria for [place] Level III. Past Medical History: Please refer to the patient's history and physical concerning information about his past medical, surgical and psychiatric histories. Education/Learning Hx: This patient's educational history is unknown, as there were no family members present to discuss. The patient lives in [place], [place]. Premorbid Cognitive, Emotional and Behavioral Status: Unable to Assess. The patient past history is unknown as there has been no family present. Behavioral Reactions of Patient and Family/Support System: Unable to Assess. The patients family is not present. Emotional/Behavioral Status of Patient and Family/Support System: Unable to Assess. Pertinent issues, if appropriate to this patients clinical care, are described in detail above. Treatment Interventions: During the course of their acute care stay, this patient and their family/ support system were provided information concerning the neuropsychological aspects of the injury, education regarding course of recovery, and psychological support in the form of counseling with the person served and the family/support system as documented in the psychology service progress notes, as deemed clinically appropriate. Current, Cognitive, Emotional and Behavioral Status: Tenuous. This patient has experienced a severe injury, and will be adjusting to significant cognitive, emotional and behavioral challenges going forward. Impression at Discharge: The cognitive and behavioral status of this patient meets criteria for [place] Level III: Localized response - total assistance. Major Neurocognitive Disorder due to Stroke, with/without behavioral disturbance CODE: F02.8x (0 or 1) The above listed diagnoses are supported by the following clinical criteria: Major Neurocognitive Disorder: This person demonstrates a significant cognitive decline from a previous level of estimated baseline performance in one or more cognitive domains (complex attention, executive functioning, learning and memory, language, perceptual-motor, or social cognition) based on the patients /informants report, further documented by todays testing results , with these cognitive deficits interfering with the patients independence in everyday activities. Status of Family/Support System Adjustment: Deferred. The patients family/ support system was not present at any point while this examiner followed. Post Acute Recommendations: It is recommended that the patient continue to be monitored for behavioral impulsivity as they continue to be early in their course of recovery. This patients neuropathological challenges may limit their reintegration into work and family life going forward, and these challenges may require specialized therapeutic skills to maximize outcome. Thank you for the opportunity to assist in this patients care. Jeremy Workman, Ph.D., ABPP Board Certified in Clinical Neuropsychology [place] [employer] [place] Licensed Psychologist #[id number] Jeremy Workman PhD November 02, 2016 14:57
[2016-11-02] MEDS: ENOXAPARIN SODIUM 40 MG/0.4 ML SYRINGE SQ SCH (20:12)
[2016-11-03] VITALS (14 sets, daily range): BP systolic 144–173; BP diastolic 91–102; PULSE 97–116; RESP 18–32; TEMP 98.5–99.4; O2SAT 96–100
[2016-11-03] MEDS: ACETAMINOPHEN 325 MG TAB PO PRN (00:18)
[2016-11-03] MEDS: CHLORHEXIDINE GLUCONATE 2 % 1 PACK (2 CLOTHS) TOP SCH (04:00)
[2016-11-03] MEDS: DOCUSATE SODIUM 100 MG/10 ML UDC G-TUBE SCH ×2 (04:40→17:00)
[2016-11-03 04:54] LABS: BICARBONATE 31.2 MEQ/L (21.0-32.0); CALCIUM 8.1 MG/DL (8.5-10.1); CREATININE 0.78 MG/DL (0.60-1.30); MAGNESIUM 2.1 MG/DL (1.5-2.5)
[2016-11-03] MEDS ORDERED: POTASSIUM PHOSPHATE MONOBASIC 500 MG TAB PO PRN (05:15)
[2016-11-03] MEDS ORDERED: MAGNESIUM OXIDE 400 MG TAB PO PRN (05:15)
[2016-11-03] MEDS ORDERED: MAGNESIUM SULFATE INJ 2 GM in SODIUM CHLORIDE 0.9% INJ 96 ML IV PRN (05:15)
[2016-11-03] MEDS ORDERED: POTASSIUM PHOSPHATE MONOBASIC 500 MG TAB PO/TUBE PRN (05:15)
[2016-11-03] MEDS ORDERED: MAGNESIUM SULFATE INJ 4 GM in SODIUM CHLORIDE 0.9% INJ 92 ML IV PRN (05:15)
[2016-11-03] MEDS ORDERED: SODIUM PHOSPHATE INJ 30 MMOL in SODIUM CHLOR 0.9% 250 ML INJ 240 ML IV PRN (05:15)
[2016-11-03] MEDS: CEFEPIME INJ 2,000 MG in SODIUM CHLORIDE 0.9% INJ 100 ML IV SCH ×3 (05:17→22:14)
[2016-11-03] MEDS: POTASSIUM CHLOR 40 MEQ PREMIX 100 ML IV PRN (05:17)
[2016-11-03] MEDS: SODIUM CHLORIDE 1 GRAM TAB PO SCH ×3 (05:17→22:03)
[2016-11-03] MEDS: LABETALOL HCL 100 MG/20 ML VIAL IV PUSH PRN (05:45)
[2016-11-03 07:17] LABS: PHOSPHORUS 2.9 MG/DL (2.5-4.9)
--- NOTE | 2016-11-03 07:32 | HHI.CCPN ---
Subjective Remarks/Hospital Course 51 year old male presents with being brought in as a trauma alert due to a head injury with altered mental status and a diminished GCS. The patient was in the bathroom and fell and hit his head. This was an unwitnessed fall. According to the patient's the patient had been unresponsive for approximately 15 minutes by the time ambulance services arrived. When they arrived the patient was noted to be a GCS of 14, however his mentation would wax and wane and go down as low as 3 again. On arrival to the emergency department he felt extremely nauseated. The CT of the head revealed diffuse subarachnoid bleed. 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 CT head today with some ventricular blood. ICP controlled and patient tolerates lightening of sedation. Volume loaded to maintain SBP > 130s. Opens eyes to voice. 10/07: BP controlled. TCDs to be done today. 10/08: BP control good. Well hydrated. No TCD evidence of spasm. 10/09: TCD today pending. CPP good. No seizure activity. Remains well hydrated. 10/10: TCDs no vasospasm. Remains well hydrated, well perfused. Some peripheral edema as expected. 10/11: Hemodynamics good. Bladder spasm continues. Try Flomax - an alpha kendall , will not impair cerebral vessels. 10/12: Episode of sepsis last night from obstructed Paul, JONH evident. Much improved now. 10/13: JONH improving. Narrow abx to GNR. 10/14: Aztreonam started for sputum, urine. CT Head acceptable. 10/15: No change in neuro status. BP control good. 10/16: Remains sedated, orally intubated on mechanical ventilation. Ventriculostomy in place. Underwent angiogram with injection of verapamil intra -arterial for minimal vasospasm on 10/15 10/17: Remains sedated, orally intubated on mechanical ventilation. Ventriculostomy drained 65 cc over 8 hours overnight. 10/18: off sedation. withdraws to pain. does not follow commands. per nursing, this is an exam change and he was previously following commands. 10/19: continues off sedation. ICP stable around 5. neuro exam stable. TCDs yesterday with questionable early spasm, but given stable neuro exam, decided to repeat TCD today to eval trend. 10/20: off sedation. taken yesterday for angio with IA verapamil for left MCA, SRI spasm. 10/21: spiked fever yesterday, white cultured. empirically started on broad spectrum abx. CSF sent for culture. initial CSF appeared cloudy but cell count and gram stain reassuring. TCDs yesterday without evidence of vasospasm. this AM sodium dropped from 147 to 139 with net -1L. likely early salt wasting, although up to this point urine studies have not shown concern for this up to now. 10/22: uop increased and sodium continues to downtrend despite salt tabs and ivf. still net -1L. urine studies concerning for salt wasting. sputum with enterobacter. neuro exam still stable. TCDs today without overt evidence of spasm. 10/23: still salt wasting. net -500cc/24h. aggressively replacing volume loss and sodium. TCDs today without any evidence of spasm and PI/LI now down to normal ranges. talked with Dr. Prater and while we have a window without spasm, will proceed with tracheostomy today. Likely PEG tube tomorrow. stable neurologic exam. 10/24: Na today 149, 3% at 10 ml per hour. s/p PEG today and still under heavy sedation. Was following commands to RN prior to receiving propofol for sedation. Trach done yesterday. -85056 UO , getting IVF replacement 10/25: continues to have high UO 12L in 24 hours. D/w Dr. Mace -probably antidiuresis. Na 145. Remains on NS at 150 ml per hour and 3% at 10 ml per hour (increased 3% to 20 ml pr hour)/ weekly following commands in all 4 extremities , partial eye opening to command. Remains on Levophed at 8 mcg per min 10/26: Slightly less responsive today, getting TCDs. UO 7L -decreased from yesterday. Na 144 today. Remains on 8 mcg/min of Levophed to maintain cerebral perfusion. SUBJECTIVE 10/27: Currently on T piece. Remains somnolent. Intermittently follows commands for the nurses. Remains on 1.5 mcg/min Levophed to maintain cerebral perfusion 10/28/16: Remains on CPAP today. Followed commands in upper extremities for RN today. More somnolent and not following commands to me. On 6 mcg per min of Levophed to maintain CPP 10/29/16: Tolerating T piece 2-3 hours a day. Currently on T piece. Somnolent. Patient did follow commands earlier for the nurse. Na 146. UO normalizing 10/30: More awake today with partial eye opening. Followed commands all 4 ext. Na 148. Will stop 3% saline 10/31: Tolerating TP well today. Neuro unchanged. No clinical evidence of vasospasm. Na today pending. Getting 1U PRBC for Hb 7 11/01: Sitting up, now on t-piece. Awaiting LTAC. 11/02: Ni material change. Awaiting LTAC. 11/03: Tolerates sitting and moving around. Await LTAC. Objective Vital Signs Date Time Temp Pulse Resp B/P Pulse Ox O2 Delivery O2 Flow Rate FiO2 11/03/16 06:00 97 11/03/16 05:50 98 T-piece 28 11/03/16 04:00 98.9 18 161/92 11/02/16 19:00 5.00 Intake and Output 11/02/16 11/02/16 11/03/16 08:00 16:00 00:00 Intake Total 926 ml 981 ml 1219 ml Output Total 1600.0 ml 800 ml 1675 ml Balance -674.0 ml 181 ml -456 ml Result Diagram: 11/01/16 0440 11/03/16 0410 Imaging Last 24 hours Impressions Transcranial Doppler Study Complete 10/23/16 0700 Signed Impressions: Service Date/Time: Sunday, October 23, 2016 07:36 - CONCLUSION: Normal Lindegaard and Gregorio ratios, spasm is not suspected. Tim Garcia MD Objective Remarks GENERAL: Middle-aged male lying in bed, s/p trach. SKIN: Dry. HEAD: Normocephalic. EYES: Pupils are 2 mm and reactive bilaterally. NECK: Supple, trachea midline. Trach site clean, dry. CARDIOVASCULAR: Regular rate and rhythm. No JVD. RESPIRATORY:On Tp today, Breath sounds equal bilaterally. Clear, no wheezes or crackles. Good bilateral excursions. GASTROINTESTINAL: Abdomen soft, non-tender, nondistended. BS active. No guarding. EXTREMITIES: Nonfocal clubbing cyanosis or edema, well perfused. NEURO: Partial eye opening to sternal rub. Follows commands in bilateral upper and lower extremities. Withdraws to pain A/P Problem List: (1) 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 ICD Code: I60.8 Status: Acute (2) Intracranial hemorrhage ICD Code: I62.9 Status: Acute (3) Hypertension ICD Code: I10 Status: Acute Assessment and Plan Assessment: 51yM with aneurysmal SAH, post-bleed day , s/p basilar artery coiling 10/05. S/p IA Verapamil 10/15 and 10/19 for cerebral vasospasm. There is some improvement in encephalopathy, acute hypoxic respiratory failure. Resolving sepsis. critically ill. Now in possible cerebral salt wasting. Continue salt tabs, 3% saline, florinef, and NS 150 ml per hour. strict I/Os. TCDs per N/S. s/p Trach 10/23 and PEG 10/24. Also continues to grow Enterobacter in the sputum Plan: Neuro: Acute encephalopathy Aneurysmal Subarachnoid bleed 10/05, Basilar Aneurysm Cerebral Vasospasm - Núñez Veliz 5 Lucas grade 3. - Basilar tip coiled. - Nimodipine. Status post intra-arterial verapamil for vasospasm on 10/15, 10/19 - Pravachol - SBP target reduced by Dr. Mace to 120-160. - TCD's per N/S Dr Mace. No recent vasospasm - Neuro exam improving, weakly following commands all 4 ext Respiratory: Acute Hypoxic and Hypercarbic Respiratory Failure - Intubated for airway protection - s/p trach 10/23 now on CPAP/intermittent TP - Tolerating TP 2-3 hours per day - DuoNeb's as needed for wheezing, start scheduled DuoNeb as well CV: Septic Shock- resolved. - goal SBP 120-[address] mace - Off Levophed Renal: Possible Cerebral Salt Wasting - UO has decreased now to normal range. About 5L in 24 hours - Goal euvolemia - Paul for accurate I/Os Strict I/Os - NaCl tabs 3gm q8h - Florinef 0.2mg q12h - NS @ 120 ml per hour 10/30. DC 3% - strict I/Os q1h - urine studies 10/21 consistent with cerebral salt wasting: at that time was patient intravascularly hypovolemic on clinical exam - NaCl boluses as needed to maintain euvolemia. FEN/GI: Acute Protein Calorie Malnutrition- mild -- vital high protein 40mL/hr. -- daily BMP -- ICU electrolyte protocol. Heme/ID: Fever Leukocytosis prior UTI -- s/p full course abx -- 10/20 sputum culture- Enterobacter, some resistance. sensitive to Cefepime. -- 10/20 urine culture- NGTD -- 10/20 CSF: 0 wbc, glu 111, prot 27.8, culture NGTD -- 10/20 Blood cx: NGTD -- 10/21 CSF: NGTD. -- Dr. Mace d/c EVD 10/21 -- d/c d vancomycin and Flagyl. -- Anticipated completion of 10 day course of cefepime 2gm iv q8hr was on 10/29, repeat sputum cx GNR, ID pending. Continue cefepime for now Endocrine: Hyperglycemia of critical illness -- SSI Prophylaxis: - Teds SCDs - Started Lovenox per nsg 10/23/16 - Protonix IV Dispo: Awaiting LTAC approval. Stable respiratory and hemodynamic function. Problem Qualifiers (1) Hypertension: Qualified Code: I10 - Essential hypertension Dave Barragan MD November 03, 2016 07:32
--- NOTE | 2016-11-03 08:46 | HHI.NSPN ---
(Meir Sánchez [employer]) Note Status Status: Progress Note (Meir Sánchez) Interval History Interval History 51 year old male presents with being brought in as a trauma alert due to a head injury with altered mental status and a diminished GCS. The patient was in the bathroom and fell and hit his head. This was an unwitnessed fall. According to the patient's the patient had been unresponsive for approximately 15 minutes by the time ambulance services arrived. When they arrived the patient was noted to be a GCS of 14, however his mentation would wax and wane and go down as low as 3 again. On arrival to the emergency department he felt extremely nauseated. The CT of the head revealed diffuse subarachnoid bleed. Emergently intubated in the trauma bay. Possible seizure activity. Intubated in the emergency room. 10/05/16: Endovascular coiling 10/07/16 rinse intubated and sedated. Ventriculostomy in place 10/09/16: Remains intubated and sedated. Increased agitation with attempts at sedation vacation 10/17/16: Pupils 2 mm. Intubated and sedated. Somewhat more responsive with decreased sedation. External ventricular drain and closed to reservoir again today. 10/19/16: TCD with vasospasm, to angio with 10 mg Verapamil IA given. 10/20/16: Patient with fevers up to 102.8 per Nursing and cultures sent, Nursing reports CSF milky & with sediment. TCD being repeated this afternoon due to vast difference from that done this morning and yesterday. Injection Molding Machine Setter increased SBP parameters to 180-200 mm Hg to help overcome vasospasms. No increase in ICP. 10/21/16: Still with elevated temp but not as high. TCD yesterday demonstrated resolution of vasospasms but today it demonstrated a right SRI vasospasm. Patient with facial grimacing and attempted eye opening. CSF specimen sent yesterday w/o any organisms or WBCs seen on Gram stain. 10/23/16: Trach done 10/24/16: PEG done at bedside prior to being seen. Nursing reports prior to sedation he was following commands to all extremities although right was weaker. Mild vasospasm per TCD. 10/25/16: No evident distress. Noted to move BLE & slight LUE spontaneously. Did open eyes partially after having been stimulated. TCD being done. 10/26/16: No evident distress, attempted eye opening to verbal & attempted to follow some commands, some spontaneous movements noted BLE & LUE. TCD being done. 10/27/16: No apparent distress, no eye opening, follows some commands. 10/28/16: Remains tracheed, NAD, follows some commands, spontaneous movement of BLE & LUE noted. 10/29/16: Remains stable follows some commands, spontaneous movement of BLE & LUE noted 10/31/16: Patient trached and on T-piece when seen, follows commands, spontaneous movement of extremities noted. Did attempt to mouth words. 11/01/16: Patient doing well, on T-piece, follows commands, moving both feet spontaneously. Nursing reports he is intermittently following command and mouthing words. 11/02/16: Patient continues to do well, on T-piece, follows some commands, he does turn his head in direction of practitioner's voice. 11/03/16: Patient doing quite well today, on T-piece, follows commands, opens eyes briefly and holds up two fingers on left hand to command and tries with right. (Meir Sánchez) Labs, Micro, & Vital Signs Results Allergies Coded Allergies Type Severity Reaction Last Updated Verified Penicillin Allergy Unknown 10/06/16 Yes Sulfa Allergy Unknown 10/06/16 Yes Recent Impressions Chest X-Ray 11/01/16 0600 Signed Impressions: Service Date/Time: Tuesday, November 01, 2016 04:37 - CONCLUSION: 1. No acute cardiopulmonary disease. Trevin De León MD ////// 06:00 18:00 06:00 18:00 06:00 18:00 Intake Total 2669 ml 1359 ml 1768 ml 1031 ml 2247 ml Output Total 3700 ml 1450 ml 2900 ml 800 ml 2675 ml Balance -1031 ml -91 ml -1132 ml 231 ml -428 ml IV Total 2014 ml 1084 ml 1006 ml 545 ml 1369 ml Tube Feeding 445 ml 215 ml 542 ml 286 ml 678 ml Tube Irrigant 210 ml 60 ml 220 ml Other 200 ml 200 ml Output Urine Total 3700 ml 1250 ml 2600 ml 800 ml 2375 ml Stool Total 200 ml 300 ml 0 ml 300 ml Tube Feeding Residual Discard 0 ml # Bowel Movements 3 3 Laboratory Tests Test 10/31/16 10/31/16 11/01/16 11/03/16 09:45 19:30 04:40 04:10 Blood Type A POSITIVE Antibody Screen NEGATIVE Crossmatch Leukocyte-Reduced Red Blood Cells Blood Bank Comment White Blood Count 8.1 TH/MM3 7.5 TH/MM3 Red Blood Count 3.40 MIL/MM3 3.02 MIL/MM3 Hemoglobin 9.8 GM/DL 8.9 GM/DL Hematocrit 29.2 % 26.0 % Mean Corpuscular Volume 86.1 FL 85.9 FL Mean Corpuscular Hemoglobin 28.9 PG 29.5 PG Mean Corpuscular Hemoglobin 33.6 % 34.4 % Concent Red Cell Distribution Width 14.6 % 15.1 % Platelet Count 165 TH/MM3 155 TH/MM3 Mean Platelet Volume 8.9 FL 8.4 FL Neutrophils (%) (Auto) 76.6 % 76.3 % Lymphocytes (%) (Auto) 12.5 % 13.0 % Monocytes (%) (Auto) 8.0 % 8.0 % Eosinophils (%) (Auto) 2.5 % 2.0 % Basophils (%) (Auto) 0.4 % 0.7 % Neutrophils # (Auto) 6.2 TH/MM3 5.7 TH/MM3 Lymphocytes # (Auto) 1.0 TH/MM3 1.0 TH/MM3 Monocytes # (Auto) 0.6 TH/MM3 0.6 TH/MM3 Eosinophils # (Auto) 0.2 TH/MM3 0.1 TH/MM3 Basophils # (Auto) 0.0 TH/MM3 0.1 TH/MM3 CBC Comment DIFF FINAL DIFF FINAL Differential Comment Sodium Level 144 MEQ/L 145 MEQ/L 144 MEQ/L Potassium Level 3.2 MEQ/L 3.4 MEQ/L 2.6 MEQ/L Chloride Level 105 MEQ/L 110 MEQ/L 106 MEQ/L Carbon Dioxide Level 30.2 MEQ/L 28.2 MEQ/L 31.2 MEQ/L Anion Gap 9 MEQ/L 7 MEQ/L 7 MEQ/L Blood Urea Nitrogen 10 MG/DL 14 MG/DL 11 MG/DL Creatinine 0.68 MG/DL 0.83 MG/DL 0.78 MG/DL Estimat Glomerular Filtration 123 ML/MIN 98 ML/MIN 105 ML/MIN Rate Random Glucose 115 MG/DL 109 MG/DL 135 MG/DL Calcium Level 8.4 MG/DL 8.1 MG/DL 8.1 MG/DL Total Bilirubin 0.7 MG/DL 0.4 MG/DL Aspartate Amino Transf 53 U/L 50 U/L (AST/SGOT) Alanine Aminotransferase 84 U/L 81 U/L (ALT/SGPT) Alkaline Phosphatase 66 U/L 108 U/L Total Protein 7.1 GM/DL 6.3 GM/DL Albumin 2.6 GM/DL 2.4 GM/DL Magnesium Level 2.0 MG/DL 2.1 MG/DL Phosphorus Level 2.9 MG/DL Constitutional Vital Signs Date Time Temp Pulse Resp B/P Pulse Ox O2 Delivery O2 Flow Rate FiO2 11/03/16 06:00 97 11/03/16 05:50 98 T-piece 28 11/03/16 04:00 98.9 101 18 161/92 100 11/03/16 04:00 101 11/03/16 02:00 98 11/03/16 00:00 99 11/03/16 00:00 99.4 99 23 161/92 100 11/02/16 22:00 98 11/02/16 20:30 100 T-piece 28 11/02/16 20:00 99.1 100 30 151/88 100 11/02/16 20:00 100 11/02/16 19:00 100 T-Piece 5.00 40 11/02/16 18:00 98 11/02/16 16:50 96 T-piece 4.00 28 11/02/16 16:00 93 11/02/16 16:00 98.6 93 22 166/95 100 11/02/16 14:00 93 11/02/16 12:00 98.1 91 29 132/79 95 11/02/16 12:00 91 11/02/16 11:20 97 T-piece 5.00 40 11/02/16 10:00 89 11/03/16 07:00 Intake Total 3278 ml Output Total 3475 ml Balance -197 ml (Meir Sánchez) Review of Systems/Exam ROS Unable to obtain ROS due to mental status & being intubated. Exam Resp: Respirations CTAB w/o W/R/R, equal excursion, non-laboured, trached & on T -piece. CV: RRR w/o M/G/R, radial & pedal pulses 2+ bilaterally, cap refill < 2 sec. Monitor is sinus rhythm w/o any ectopy noted GI: Abdomen soft, nontender, bowel sounds all quads, PEG tube w/enteral feeds, fecal mgmt system in place. : Paul cath to BSD. Appears to have scrotal & groin fungal infection, skin beefy red in appearance. Neuro: Turns head to sound of practitioner's voice. Brief eye opening to command , PERRLA. Follows commands and wiggles toes on left foot and movement of right foot, wire weaver cloth with hands L>R, does hold up 2 fingers to command on left and tries with right. Did not try to mouth any words. Spontaneous movement of LLE also. ( Meir Sánchez) Medications Current Medications Current Medications Medications (Trade) Dose Ordered Sig/Nava Route Start Time Stop Time Status Last Admin (Tylenol) 650 mg Q6H PRN PO 10/05/16 02:45 11/03/16 00:18 (Protonix Inj) 40 mg DAILY IV 10/05/16 09:00 11/02/16 08:46 (Tears Naturale Opth Soln) 1 drop TID EACH EYE 10/05/16 09:00 11/02/16 16:02 (Zofran Inj) 4 mg Q6H PRN IV 10/05/16 02:45 Miscellaneous Information 1 Q361D XX 10/05/16 02:45 10/05/16 02:45 (Chlorhexidine 2% Cloth) Taper DAILY@04 TOP 10/05/16 04:00 10/01/17 03:59 10/28/16 04:00 Chlorhexidine Gluconate 3 pack 3 pack UNSCH PRN TOP 10/05/16 02:45 Levetriacetam 500 mg/Sodium Chloride 105 ml @ 420 mls/hr Q12HR IV 10/05/16 09:00 11/02/16 20:11 (Cardene Inj/NS 250 ml Inj) 260 ml @ 0 mls/hr TITRATE IV 10/05/16 02:45 10/18/16 11:23 (Trandate Inj) 10 mg Q4H PRN IV PUSH 10/05/16 02:45 11/03/16 05:45 (Pravachol) 40 mg DAILY PO 10/05/16 09:00 11/02/16 08:46 (NS Flush) See Protocol DAILY IV FLUSH 10/07/16 09:00 11/02/16 08:39 (NS Flush) See Protocol UNSCH PRN IV FLUSH 10/06/16 12:00 Sodium Chloride UNSCH PRN IV FLUSH 10/06/16 12:00 (Levophed Inj/NS 250 ml Inj) 254 ml @ 0 mls/hr TITRATE IV 10/06/16 18:00 10/28/16 20:14 (Cathflo Activase Inj) 2 mg UNSCH PRN IV FLUSH 10/19/16 16:15 11/01/16 21:47 Diphenhydramine HCl 6.25 mg 6.25 mg Q4H PRN IV PUSH 10/19/16 19:15 11/01/16 23:53 (NS 1000 ml Inj) 1,000 ml @ 60 mls/hr [id number] IV 10/21/16 08:30 11/02/16 16:01 (Sodium Chloride) 3 gm Q8HR PO 10/22/16 14:00 11/03/16 05:17 (Florinef) 0.2 mg Q12HR PO 10/22/16 21:00 11/02/16 20:12 Enoxaparin Sodium 40 mg 40 mg Q24H SQ 10/23/16 21:00 11/02/16 20:12 Potassium Chloride 100 ml @ 50 mls/hr Q2H PRN IV 10/24/16 15:15 11/03/16 05:17 (KCl 20 Meq Premix Inj) 100 ml @ 50 mls/hr Q2H PRN IV 10/24/16 15:15 10/31/16 16:39 Potassium Bicarb/ Potassium Chloride 50 meq 50 meq UNSCH PRN PO 10/24/16 15:15 Potassium Chloride 100 ml @ 25 mls/hr UNSCH PRN IV 10/24/16 15:15 10/26/16 21:47 Potassium Chloride 100 ml @ 50 mls/hr Q2H PRN IV 10/24/16 15:15 (Magnesium Sulfate Inj/NS Inj) 100 ml @ 50 mls/hr UNSCH PRN IV 10/24/16 15:15 Magnesium Oxide 800 mg 800 mg UNSCH PRN PO 10/24/16 15:15 (Magnesium Sulfate Inj/NS Inj) 100 ml @ 50 mls/hr UNSCH PRN IV 10/24/16 15:15 Potassium Phosphate 2000 mg 2,000 mg Q4H PRN PO 10/24/16 15:15 (Sodium Phosphate Inj/NS 250 ml Inj) 250 ml @ 42 mls/hr UNSCH PRN IV 10/24/16 15:15 Potassium Phosphate 2000 mg 2,000 mg UNSCH PRN PO/TUBE 10/24/16 15:15 Potassium Phosphate 30 mmol/ Sodium Chloride 260 ml @ 42 mls/hr UNSCH PRN IV 10/24/16 15:15 (Maxipime Inj/NS Inj) 100 ml @ 200 mls/hr Q8HR IV 10/30/16 14:00 11/06/16 12:00 11/03/16 05:17 (fentaNYL INJ) 50 mcg Q3H PRN IV 10/30/16 15:15 11/03/16 06:37 Docusate Sodium 100 mg 100 mg Q12H G-TUBE 10/31/16 17:00 11/02/16 16:01 Potassium Chloride 100 ml @ 50 mls/hr Q2H PRN IV 11/03/16 05:15 (KCl 20 Meq Premix Inj) 100 ml @ 50 mls/hr Q2H PRN IV 11/03/16 05:15 Potassium Bicarb/ Potassium Chloride 50 meq 50 meq UNSCH PRN PO 11/03/16 05:15 Potassium Chloride 100 ml @ 25 mls/hr UNSCH PRN IV 11/03/16 05:15 Potassium Chloride 100 ml @ 50 mls/hr Q2H PRN IV 11/03/16 05:15 (Magnesium Sulfate Inj/NS Inj) 100 ml @ 50 mls/hr UNSCH PRN IV 11/03/16 05:15 Magnesium Oxide 800 mg 800 mg UNSCH PRN PO 11/03/16 05:15 (Magnesium Sulfate Inj/NS Inj) 100 ml @ 50 mls/hr UNSCH PRN IV 11/03/16 05:15 Potassium Phosphate 2000 mg 2,000 mg Q4H PRN PO 11/03/16 05:15 (Sodium Phosphate Inj/NS 250 ml Inj) 250 ml @ 42 mls/hr UNSCH PRN IV 11/03/16 05:15 (K-Phos) 2,000 mg UNSCH PRN PO/TUBE 11/03/16 05:15 (Meir Sánchez) Medical Decision Making MDM Remarks 1. Neurological function seems to be slowly improving 2. 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 Left basal ganglia region CVA primarily per CT 4. CSF cultures w/o any growth to date 5. Max temp 99.4 6. Enterobacter cloacae in sputum from 7. Hypokalemia, being treated (Meir Sánchez) Plan Plan Remarks Cognitive/speech therapy eval & tx Activity OOB to cardiac chair Continue PT & OT Continue abx per Surgical Injection Molding Machine Setter Continue Keppra for probable seizure activity Okay for Lovenox from NSGY standpoint Ulcer prophylaxis Okay to keep SBP between 120-160 mm Hg Okay for patient to be [facility] from NSGY's perspective ( Meir Sánchez) Attending Statement I have personally seen and examined the patient on the date of this note. Pertinent documentation and study results have been reviewed by the undersigned. I have personally developed the treatment plan and performed medical decision making. Agree with findings, exam, and treatment plan as noted above. Discussed with the patient and his family in the room today. He is more alert today, following commands with all extremities intermittently and has had 15-20 minutes of spontaneous eye opening earlier today. He nods his head in response to some questions and grimaces occasionally. I advised the family that it is not unusual for patients with significant subarachnoid hemorrhage to not become more responsive until 3-4 weeks post hemorrhage. Continuing all therapies. He will need inpatient rehabilitation/LTAC, and is clear for discharge from a neurosurgical standpoint.. (Gino Mace MD) eMir Sánchez November 03, 2016 08:46 Gino Mace MD November 03, 2016 19:54
[2016-11-03] MEDS: ARTIFICIAL TEARS OPTH SOLN 15 ML BTL EACH EYE SCH ×3 (09:00→17:20)
[2016-11-03] MEDS: SODIUM CHLORIDE 0.9% FLUSH 10 ML FLUSH IV FLUSH SCH (09:00)
[2016-11-03] MEDS: FLUDROCORTISONE ACETATE 0.1 MG TAB PO SCH ×2 (09:02→20:33)
[2016-11-03] MEDS: PRAVASTATIN SOD 40 MG TAB PO SCH (09:03)
[2016-11-03] MEDS: PANTOPRAZOLE SODIUM 40 MG VIAL IV SCH (09:03)
[2016-11-03] MEDS: diphenhydrAMINE HCL 50 MG/ML VIAL IV PUSH PRN ×2 (09:03→18:17)
[2016-11-03] MEDS: levETIRAcetam INJ 500 MG in SODIUM CHLORIDE 0.9% INJ 100 ML IV SCH ×2 (09:04→20:34)
[2016-11-03] MEDS: SODIUM CHLOR 0.9% 1000 ML INJ 1,000 ML IV SCH (15:00)
[2016-11-03] MEDS ORDERED: FUROSEMIDE 40 MG/4 ML VIAL IV PUSH ONE (18:15)
[2016-11-03] MEDS: hydrALAZINE HCL 50 MG TAB PO SCH (18:18)
[2016-11-03] MEDS: POTASSIUM CHLORIDE INJ 30 MEQ in SODIUM CHLORIDE 0.9% INJ 100 ML IV-CENTRAL SCH ×2 (19:37→22:53)
[2016-11-03] MEDS: ENOXAPARIN SODIUM 40 MG/0.4 ML SYRINGE SQ SCH (20:34)
[2016-11-03] MEDS: LABETALOL HCL 100 MG TAB PO SCH (22:03)
[2016-11-04] VITALS (14 sets, daily range): BP systolic 130–163; BP diastolic 86–98; PULSE 95–112; RESP 23–33; TEMP 98.4–99; O2SAT 95–97
[2016-11-04] MEDS: SODIUM CHLOR 0.9% 1000 ML INJ 1,000 ML IV SCH ×2 (03:33→20:47)
[2016-11-04] MEDS: CHLORHEXIDINE GLUCONATE 2 % 1 PACK (2 CLOTHS) TOP SCH (04:00)
[2016-11-04] MEDS: DOCUSATE SODIUM 100 MG/10 ML UDC G-TUBE SCH ×2 (04:30→16:52)
[2016-11-04] MEDS: LABETALOL HCL 100 MG TAB PO SCH ×3 (04:32→20:38)
[2016-11-04] MEDS: CEFEPIME INJ 2,000 MG in SODIUM CHLORIDE 0.9% INJ 100 ML IV SCH ×3 (05:58→20:38)
[2016-11-04] MEDS: SODIUM CHLORIDE 1 GRAM TAB PO SCH ×3 (05:58→22:23)
--- NOTE | 2016-11-04 08:41 | HHI.CCPN ---
Subjective Remarks/Hospital Course 51 year old male presents with being brought in as a trauma alert due to a head injury with altered mental status and a diminished GCS. The patient was in the bathroom and fell and hit his head. This was an unwitnessed fall. According to the patient's the patient had been unresponsive for approximately 15 minutes by the time ambulance services arrived. When they arrived the patient was noted to be a GCS of 14, however his mentation would wax and wane and go down as low as 3 again. On arrival to the emergency department he felt extremely nauseated. The CT of the head revealed diffuse subarachnoid bleed. 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 CT head today with some ventricular blood. ICP controlled and patient tolerates lightening of sedation. Volume loaded to maintain SBP > 130s. Opens eyes to voice. 10/07: BP controlled. TCDs to be done today. 10/08: BP control good. Well hydrated. No TCD evidence of spasm. 10/09: TCD today pending. CPP good. No seizure activity. Remains well hydrated. 10/10: TCDs no vasospasm. Remains well hydrated, well perfused. Some peripheral edema as expected. 10/11: Hemodynamics good. Bladder spasm continues. Try Flomax - an alpha kendall , will not impair cerebral vessels. 10/12: Episode of sepsis last night from obstructed Paul, JONH evident. Much improved now. 10/13: JONH improving. Narrow abx to GNR. 10/14: Aztreonam started for sputum, urine. CT Head acceptable. 10/15: No change in neuro status. BP control good. 10/16: Remains sedated, orally intubated on mechanical ventilation. Ventriculostomy in place. Underwent angiogram with injection of verapamil intra -arterial for minimal vasospasm on 10/15 10/17: Remains sedated, orally intubated on mechanical ventilation. Ventriculostomy drained 65 cc over 8 hours overnight. 10/18: off sedation. withdraws to pain. does not follow commands. per nursing, this is an exam change and he was previously following commands. 10/19: continues off sedation. ICP stable around 5. neuro exam stable. TCDs yesterday with questionable early spasm, but given stable neuro exam, decided to repeat TCD today to eval trend. 10/20: off sedation. taken yesterday for angio with IA verapamil for left MCA, SRI spasm. 10/21: spiked fever yesterday, white cultured. empirically started on broad spectrum abx. CSF sent for culture. initial CSF appeared cloudy but cell count and gram stain reassuring. TCDs yesterday without evidence of vasospasm. this AM sodium dropped from 147 to 139 with net -1L. likely early salt wasting, although up to this point urine studies have not shown concern for this up to now. 10/22: uop increased and sodium continues to downtrend despite salt tabs and ivf. still net -1L. urine studies concerning for salt wasting. sputum with enterobacter. neuro exam still stable. TCDs today without overt evidence of spasm. 10/23: still salt wasting. net -500cc/24h. aggressively replacing volume loss and sodium. TCDs today without any evidence of spasm and PI/LI now down to normal ranges. talked with Dr. Prater and while we have a window without spasm, will proceed with tracheostomy today. Likely PEG tube tomorrow. stable neurologic exam. 10/24: Na today 149, 3% at 10 ml per hour. s/p PEG today and still under heavy sedation. Was following commands to RN prior to receiving propofol for sedation. Trach done yesterday. -[id number] UO , getting IVF replacement 10/25: continues to have high UO 12L in 24 hours. D/w Dr. Mace -probably antidiuresis. Na 145. Remains on NS at 150 ml per hour and 3% at 10 ml per hour (increased 3% to 20 ml pr hour)/ weekly following commands in all 4 extremities , partial eye opening to command. Remains on Levophed at 8 mcg per min 10/26: Slightly less responsive today, getting TCDs. UO 7L -decreased from yesterday. Na 144 today. Remains on 8 mcg/min of Levophed to maintain cerebral perfusion. SUBJECTIVE 10/27: Currently on T piece. Remains somnolent. Intermittently follows commands for the nurses. Remains on 1.5 mcg/min Levophed to maintain cerebral perfusion 10/28/16: Remains on CPAP today. Followed commands in upper extremities for RN today. More somnolent and not following commands to me. On 6 mcg per min of Levophed to maintain CPP 10/29/16: Tolerating T piece 2-3 hours a day. Currently on T piece. Somnolent. Patient did follow commands earlier for the nurse. Na 146. UO normalizing 10/30: More awake today with partial eye opening. Followed commands all 4 ext. Na 148. Will stop 3% saline 10/31: Tolerating TP well today. Neuro unchanged. No clinical evidence of vasospasm. Na today pending. Getting 1U PRBC for Hb 7 11/01: Sitting up, now on t-piece. Awaiting LTAC. 11/02: Ni material change. Awaiting LTAC. 11/03: Tolerates sitting and moving around. Await LTAC. 11/04: Tachypnea improved, still moderate. Increasing oral HTN meds. Objective Vital Signs Date Time Temp Pulse Resp B/P Pulse Ox O2 Delivery O2 Flow Rate FiO2 11/04/16 06:00 95 11/04/16 04:00 98.9 24 163/97 97 11/03/16 20:00 T-Piece 5.00 40 Intake and Output 11/03/16 11/03/16 11/04/16 08:00 16:00 00:00 Intake Total 1078 ml 1292 ml 1342 ml Output Total 1000 ml 1240 ml 1400 ml Balance 78 ml 52 ml -58 ml Result Diagram: 11/01/16 0440 11/03/16 0410 Imaging Last 24 hours Impressions Transcranial Doppler Study Complete 10/23/16 0700 Signed Impressions: Service Date/Time: Sunday, October 23, 2016 07:36 - CONCLUSION: Normal Lindegaard and Gregorio ratios, spasm is not suspected. Tim Garcia MD Objective Remarks GENERAL: Middle-aged male lying in bed, s/p trach. SKIN: Dry. HEAD: Normocephalic. EYES: Pupils are 2 mm and reactive bilaterally. NECK: Supple, trachea midline. Trach site clean, dry. CARDIOVASCULAR: Regular rate and rhythm. No JVD. RESPIRATORY:On Tp today, Breath sounds equal bilaterally. Clear, no wheezes or crackles. Good bilateral excursions. GASTROINTESTINAL: Abdomen soft, non-tender, nondistended. BS active. No guarding. EXTREMITIES: Nonfocal clubbing cyanosis or edema, well perfused. NEURO: Partial eye opening to sternal rub. Follows commands in bilateral upper and lower extremities. Withdraws to pain A/P Problem List: (1) 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 ICD Code: I60.8 Status: Acute (2) Intracranial hemorrhage ICD Code: I62.9 Status: Acute (3) Hypertension ICD Code: I10 Status: Acute Assessment and Plan Assessment: 51yM with aneurysmal SAH, post-bleed day , s/p basilar artery coiling 10/05. S/p IA Verapamil 10/15 and 10/19 for cerebral vasospasm. There is some improvement in encephalopathy, acute hypoxic respiratory failure. Resolving sepsis. critically ill. Now in possible cerebral salt wasting. Continue salt tabs, 3% saline, florinef, and NS 150 ml per hour. strict I/Os. TCDs per N/S. s/p Trach 10/23 and PEG 10/24. Also continues to grow Enterobacter in the sputum Plan: Neuro: Acute encephalopathy Aneurysmal Subarachnoid bleed 10/05, Basilar Aneurysm Cerebral Vasospasm - Núñez Veliz 5 Lucas grade 3. - Basilar tip coiled. - Nimodipine. Status post intra-arterial verapamil for vasospasm on 10/15, 10/19 - Pravachol - SBP target reduced by Dr. Mace to 120-160. - TCD's per N/S Dr Mace. No recent vasospasm - Neuro exam improving, weakly following commands all 4 ext Respiratory: Acute Hypoxic and Hypercarbic Respiratory Failure - Intubated for airway protection - s/p trach 10/23 now on CPAP/intermittent TP - Tolerating TP 2-3 hours per day - DuoNeb's as needed for wheezing, start scheduled DuoNeb as well T-piece well tolerated. CV: Septic Shock- resolved. - goal SBP 120-[address] mace - Off Levophed -Resolved Renal: Possible Cerebral Salt Wasting - UO has decreased now to normal range. About 5L in 24 hours - Goal euvolemia - Paul for accurate I/Os Strict I/Os - NaCl tabs 3gm q8h - Florinef 0.2mg q12h - NS @ 120 ml per hour 10/30. DC 3% - strict I/Os q1h - urine studies 10/21 consistent with cerebral salt wasting: at that time was patient intravascularly hypovolemic on clinical exam - NaCl boluses as needed to maintain euvolemia. FEN/GI: Acute Protein Calorie Malnutrition- mild -- vital high protein 40mL/hr. -- daily BMP -- ICU electrolyte protocol. Heme/ID: Fever Leukocytosis prior UTI -- s/p full course abx -- 10/20 sputum culture- Enterobacter, some resistance. sensitive to Cefepime. -- 10/20 urine culture- NGTD -- 10/20 CSF: 0 wbc, glu 111, prot 27.8, culture NGTD -- 10/20 Blood cx: NGTD -- 10/21 CSF: NGTD. -- Dr. Mace d/c EVD 10/21 -- d/c d vancomycin and Flagyl. -- Anticipated completion of 10 day course of cefepime 2gm iv q8hr was on 10/29, repeat sputum cx GNR, ID pending. Continue cefepime for now Endocrine: Hyperglycemia of critical illness -- SSI Prophylaxis: - Teds SCDs - Started Lovenox per nsg 10/23/16 - Protonix IV Overall: Fine-tuning hypertension control. Well diuresed. Attempting to rid bacterial bronchitis. Awaiting LTAC approval. Stable respiratory and hemodynamic function. Problem Qualifiers (1) Hypertension: Qualified Code: I10 - Essential hypertension Dave Barragan MD November 04, 2016 08:41
[2016-11-04] MEDS: ARTIFICIAL TEARS OPTH SOLN 15 ML BTL EACH EYE SCH ×3 (09:30→18:00)
[2016-11-04] MEDS: PANTOPRAZOLE SODIUM 40 MG VIAL IV SCH (09:47)
[2016-11-04] MEDS: PRAVASTATIN SOD 40 MG TAB PO SCH (09:48)
[2016-11-04] MEDS: hydrALAZINE HCL 50 MG TAB PO SCH ×2 (09:48→20:38)
[2016-11-04] MEDS: SODIUM CHLORIDE 0.9% FLUSH 10 ML FLUSH IV FLUSH SCH (09:48)
[2016-11-04] MEDS: levETIRAcetam INJ 500 MG in SODIUM CHLORIDE 0.9% INJ 100 ML IV SCH ×2 (09:48→21:36)
[2016-11-04] MEDS: amLODIPine BESYLATE 5 MG TAB PO SCH (09:48)
[2016-11-04] MEDS: FLUDROCORTISONE ACETATE 0.1 MG TAB PO SCH ×2 (09:48→20:38)
--- NOTE | 2016-11-04 11:16 | HHI.NSPN ---
(Meir Sánchez MECHANICAL MAINTENANCE FOREMAN) Note Status Status: Progress Note (Meir Sánchez) Interval History Interval History 51 year old male presents with being brought in as a trauma alert due to a head injury with altered mental status and a diminished GCS. The patient was in the bathroom and fell and hit his head. This was an unwitnessed fall. According to the patient's the patient had been unresponsive for approximately 15 minutes by the time ambulance services arrived. When they arrived the patient was noted to be a GCS of 14, however his mentation would wax and wane and go down as low as 3 again. On arrival to the emergency department he felt extremely nauseated. The CT of the head revealed diffuse subarachnoid bleed. Emergently intubated in the trauma bay. Possible seizure activity. Intubated in the emergency room. 10/05/16: Endovascular coiling 10/07/16 rinse intubated and sedated. Ventriculostomy in place 10/09/16: Remains intubated and sedated. Increased agitation with attempts at sedation vacation 10/17/16: Pupils 2 mm. Intubated and sedated. Somewhat more responsive with decreased sedation. External ventricular drain and closed to reservoir again today. 10/19/16: TCD with vasospasm, to angio with 10 mg Verapamil IA given. 10/20/16: Patient with fevers up to 102.8 per Nursing and cultures sent, Nursing reports CSF milky & with sediment. TCD being repeated this afternoon due to vast difference from that done this morning and yesterday. Reel Hooker increased SBP parameters to 180-200 mm Hg to help overcome vasospasms. No increase in ICP. 10/21/16: Still with elevated temp but not as high. TCD yesterday demonstrated resolution of vasospasms but today it demonstrated a right SRI vasospasm. Patient with facial grimacing and attempted eye opening. CSF specimen sent yesterday w/o any organisms or WBCs seen on Gram stain. 10/23/16: Trach done 10/24/16: PEG done at bedside prior to being seen. Nursing reports prior to sedation he was following commands to all extremities although right was weaker. Mild vasospasm per TCD. 10/25/16: No evident distress. Noted to move BLE & slight LUE spontaneously. Did open eyes partially after having been stimulated. TCD being done. 10/26/16: No evident distress, attempted eye opening to verbal & attempted to follow some commands, some spontaneous movements noted BLE & LUE. TCD being done. 10/27/16: No apparent distress, no eye opening, follows some commands. 10/28/16: Remains tracheed, NAD, follows some commands, spontaneous movement of BLE & LUE noted. 10/29/16: Remains stable follows some commands, spontaneous movement of BLE & LUE noted 10/31/16: Patient trached and on T-piece when seen, follows commands, spontaneous movement of extremities noted. Did attempt to mouth words. 11/01/16: Patient doing well, on T-piece, follows commands, moving both feet spontaneously. Nursing reports he is intermittently following command and mouthing words. 11/02/16: Patient continues to do well, on T-piece, follows some commands, he does turn his head in direction of practitioner's voice. 11/03/16: Patient doing quite well today, on T-piece, follows commands, opens eyes briefly and holds up two fingers on left hand to command and tries with right. 11/04/16: Patient initially seen this morning with Therapy at the bedside. He had his eyes open at the time and would do a hand squeeze to command. When seen later he would not open his eyes but did follow commands and was able to show two fingers with each hand to command. Nursing reported that the patient mouthed that the RUE was not working. (Meir Sánchez) Labs, Micro, & Vital Signs Constitutional Vital Signs Date Time Temp Pulse Resp B/P Pulse Ox O2 Delivery O2 Flow Rate FiO2 11/04/16 08:45 96 T-piece 5.00 28 11/04/16 06:00 95 11/04/16 04:00 100 11/04/16 04:00 98.9 100 24 163/97 97 11/04/16 02:00 107 11/04/16 00:00 104 11/04/16 00:00 98.6 104 24 147/97 97 11/03/16 22:00 116 11/03/16 20:00 98.5 108 30 144/102 97 11/03/16 20:00 108 11/03/16 20:00 100 T-Piece 5.00 40 11/03/16 20:00 96 6.00 28 11/03/16 18:00 109 11/03/16 16:00 103 11/03/16 16:00 98.6 103 32 169/99 98 11/03/16 14:00 100 11/03/16 12:00 98.9 102 29 159/91 98 11/03/16 12:00 102 11/04/16 07:00 Intake Total 3744 ml Output Total 3365 ml Balance 379 ml (Meir Sánchez) Review of Systems/Exam ROS Unable to obtain ROS due to mental status & being trached. Exam Resp: Respirations CTAB w/o W/R/R, equal excursion, non-laboured, trached & on T -piece. CV: S1S2 w/regular but fast rate w/o M/G/R, radial & pedal pulses 2+ bilaterally , cap refill < 2 sec. Monitor is sinus tachycardia w/o any ectopy noted GI: Abdomen soft, nontender, bowel sounds all quads, PEG tube w/enteral feeds, fecal mgmt system in place. : Paul cath to BSD. Appears to have scrotal & groin fungal infection, skin beefy red in appearance. Neuro: Turns head to sound of practitioner's voice. Eyes open earlier this morning but will not open to command at present, PERRLA. 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 Did not try to mouth any words. Spontaneous movement of LLE also. (Meir Sánchez) Medications Current Medications Current Medications Medications (Trade) Dose Ordered Sig/Nava Route Start Time Stop Time Status Last Admin (Tylenol) 650 mg Q6H PRN PO 10/05/16 02:45 11/03/16 00:18 (Protonix Inj) 40 mg DAILY IV 10/05/16 09:00 11/04/16 09:47 (Tears Naturale Opth Soln) 1 drop TID EACH EYE 10/05/16 09:00 11/04/16 09:30 (Zofran Inj) 4 mg Q6H PRN IV 10/05/16 02:45 Miscellaneous Information 1 Q361D XX 10/05/16 02:45 10/05/16 02:45 (Chlorhexidine 2% Cloth) Taper DAILY@04 TOP 10/05/16 04:00 10/01/17 03:59 10/28/16 04:00 Chlorhexidine Gluconate 3 pack 3 pack UNSCH PRN TOP 10/05/16 02:45 Levetriacetam 500 mg/Sodium Chloride 105 ml @ 420 mls/hr Q12HR IV 10/05/16 09:00 11/04/16 09:48 (Cardene Inj/NS 250 ml Inj) 260 ml @ 0 mls/hr TITRATE IV 10/05/16 02:45 10/18/16 11:23 (Trandate Inj) 10 mg Q4H PRN IV PUSH 10/05/16 02:45 11/03/16 05:45 (Pravachol) 40 mg DAILY PO 10/05/16 09:00 11/04/16 09:48 (NS Flush) See Protocol DAILY IV FLUSH 10/07/16 09:00 11/04/16 09:48 (NS Flush) See Protocol UNSCH PRN IV FLUSH 10/06/16 12:00 Sodium Chloride UNSCH PRN IV FLUSH 10/06/16 12:00 (Levophed Inj/NS 250 ml Inj) 254 ml @ 0 mls/hr TITRATE IV 10/06/16 18:00 10/28/16 20:14 (Cathflo Activase Inj) 2 mg UNSCH PRN IV FLUSH 10/19/16 16:15 11/01/16 21:47 Diphenhydramine HCl 6.25 mg 6.25 mg Q4H PRN IV PUSH 10/19/16 19:15 11/03/16 18:17 (NS 1000 ml Inj) 1,000 ml @ 60 mls/hr [id number] IV 10/21/16 08:30 11/04/16 03:33 (Sodium Chloride) 3 gm Q8HR PO 10/22/16 14:00 11/04/16 05:58 (Florinef) 0.2 mg Q12HR PO 10/22/16 21:00 11/04/16 09:48 Enoxaparin Sodium 40 mg 40 mg Q24H SQ 10/23/16 21:00 11/03/16 20:34 Potassium Chloride 100 ml @ 50 mls/hr Q2H PRN IV 10/24/16 15:15 11/03/16 05:17 (KCl 20 Meq Premix Inj) 100 ml @ 50 mls/hr Q2H PRN IV 10/24/16 15:15 10/31/16 16:39 Potassium Bicarb/ Potassium Chloride 50 meq 50 meq UNSCH PRN PO 10/24/16 15:15 Potassium Chloride 100 ml @ 25 mls/hr UNSCH PRN IV 10/24/16 15:15 10/26/16 21:47 Potassium Chloride 100 ml @ 50 mls/hr Q2H PRN IV 10/24/16 15:15 (Magnesium Sulfate Inj/NS Inj) 100 ml @ 50 mls/hr UNSCH PRN IV 10/24/16 15:15 Magnesium Oxide 800 mg 800 mg UNSCH PRN PO 10/24/16 15:15 (Magnesium Sulfate Inj/NS Inj) 100 ml @ 50 mls/hr UNSCH PRN IV 10/24/16 15:15 Potassium Phosphate 2000 mg 2,000 mg Q4H PRN PO 10/24/16 15:15 (Sodium Phosphate Inj/NS 250 ml Inj) 250 ml @ 42 mls/hr UNSCH PRN IV 10/24/16 15:15 Potassium Phosphate 2000 mg 2,000 mg UNSCH PRN PO/TUBE 10/24/16 15:15 Potassium Phosphate 30 mmol/ Sodium Chloride 260 ml @ 42 mls/hr UNSCH PRN IV 10/24/16 15:15 (Maxipime Inj/NS Inj) 100 ml @ 200 mls/hr Q8HR IV 10/30/16 14:00 11/06/16 12:00 11/04/16 05:58 (fentaNYL INJ) 50 mcg Q3H PRN IV 10/30/16 15:15 11/04/16 09:47 Docusate Sodium 100 mg 100 mg Q12H G-TUBE 10/31/16 17:00 11/03/16 17:00 Potassium Chloride 100 ml @ 50 mls/hr Q2H PRN IV 11/03/16 05:15 (KCl 20 Meq Premix Inj) 100 ml @ 50 mls/hr Q2H PRN IV 11/03/16 05:15 Potassium Bicarb/ Potassium Chloride 50 meq 50 meq UNSCH PRN PO 11/03/16 05:15 Potassium Chloride 100 ml @ 25 mls/hr UNSCH PRN IV 11/03/16 05:15 Potassium Chloride 100 ml @ 50 mls/hr Q2H PRN IV 11/03/16 05:15 (Magnesium Sulfate Inj/NS Inj) 100 ml @ 50 mls/hr UNSCH PRN IV 11/03/16 05:15 Magnesium Oxide 800 mg 800 mg UNSCH PRN PO 11/03/16 05:15 (Magnesium Sulfate Inj/NS Inj) 100 ml @ 50 mls/hr UNSCH PRN IV 11/03/16 05:15 Potassium Phosphate 2000 mg 2,000 mg Q4H PRN PO 11/03/16 05:15 (Sodium Phosphate Inj/NS 250 ml Inj) 250 ml @ 42 mls/hr UNSCH PRN IV 11/03/16 05:15 (K-Phos) 2,000 mg UNSCH PRN PO/TUBE 11/03/16 05:15 (Trandate) 100 mg Q8H PO 11/03/16 20:00 11/04/16 04:32 (Apresoline) 50 mg Q12HR PO 11/03/16 19:00 11/04/16 09:48 (Norvasc) 5 mg DAILY PO 11/04/16 09:00 11/04/16 09:48 (Meir Sánchez) Medical Decision Making MDM Remarks 1. Neurological function seems to be slowly improving 2. 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 Left basal ganglia region CVA primarily per CT 4. CSF cultures w/o any growth to date 5. Max temp 98.9 6. Enterobacter cloacae in sputum from 7. Hypokalemia, treated (Meir Sánchez) Plan Plan Remarks Cognitive/speech therapy eval & tx Activity OOB to cardiac chair Continue PT & OT Continue abx per Surgical Reel Hooker Continue Keppra for probable seizure activity Okay for Lovenox from NSGY standpoint Ulcer prophylaxis Okay to keep SBP between 120-160 mm Hg Okay for patient to be [facility] from NSGY's perspective ( Meir Sánchez) Attending Statement I have personally seen and examined the patient on the date of this note. Pertinent documentation and study results have been reviewed by the undersigned. I have personally developed the treatment plan and performed medical decision making. Agree with findings, exam, and treatment plan as noted above. Discussed with the patient family as well as nursing staff in the room today. He continues to slowly improve mental status. Following commands intermittently. Occasional spontaneous eye opening over the past 2 or 3 days. Continue to follow sodium intermittent. Stable for transfer to rehabilitation from neurosurgery standpoint. (Gino Mace MD) Meir Sánchez November 04, 2016 11:16 Gino Mace MD November 04, 2016 22:39
[2016-11-04] MEDS: ONDANSETRON HCL 4 MG/2 ML VIAL IV PRN (20:45)
[2016-11-04] MEDS: diphenhydrAMINE HCL 50 MG/ML VIAL IV PUSH PRN (20:45)
[2016-11-04] MEDS: ENOXAPARIN SODIUM 40 MG/0.4 ML SYRINGE SQ SCH (20:47)
[2016-11-04] MEDS: POTASSIUM CHLOR 40 MEQ PREMIX 100 ML IV PRN (22:23)
[2016-11-05] VITALS (14 sets, daily range): BP systolic 116–153; BP diastolic 79–96; PULSE 86–115; RESP 24–28; TEMP 98–99.8; O2SAT 92–97
[2016-11-05] MEDS: POTASSIUM CHLOR 40 MEQ PREMIX 100 ML IV PRN ×2 (01:45→04:42)
[2016-11-05] MEDS: DOCUSATE SODIUM 100 MG/10 ML UDC G-TUBE SCH ×3 (03:04→22:34)
[2016-11-05 03:48] LABS: AUTOMATED NEUTROPHIL # 5.9 TH/MM3 (1.8-7.7); BASOPHIL # 0.1 TH/MM3 (0-0.2); BASOPHIL % 0.6 % (0.0-2.0); EOSINOPHIL # 0.4 TH/MM3 (0-0.4); EOSINOPHIL % 4.4 % (0.0-4.0); HEMATOCRIT 29.8 % (39.0-51.0); HEMOGLOBIN 9.8 GM/DL (13.0-17.0); LYMPH % 16.5 % (9.0-44.0); LYMPHOCYTE # 1.4 TH/MM3 (1.0-4.8); MEAN CELL VOLUME 86.4 FL (80.0-100.0); MEAN CORPUSCULAR HEMOGLOBIN 28.6 PG (27.0-34.0); MEAN CORPUSCULAR HGB CONC 33.1 % (32.0-36.0); MEAN PLATELET VOLUME 9.1 FL (7.0-11.0); MONO % 9.3 % (0.0-8.0); MONOCYTE # 0.8 TH/MM3 (0-0.9); NEUT % 69.2 % (16.0-70.0); PLATELET COUNT 156 TH/MM3 (150-450); RED BLOOD COUNT 3.45 MIL/MM3 (4.50-5.90); RED CELL DISTRIBUTION WIDTH 14.8 % (11.6-17.2); WHITE BLOOD COUNT 8.6 TH/MM3 (4.0-11.0)
[2016-11-05] MEDS: CHLORHEXIDINE GLUCONATE 2 % 1 PACK (2 CLOTHS) TOP SCH (04:00)
[2016-11-05 04:19] LABS: BICARBONATE 28.5 MEQ/L (21.0-32.0); CALCIUM 8.2 MG/DL (8.5-10.1)
[2016-11-05 04:20] LABS: CREATININE 0.7 MG/DL (0.60-1.30); PHOSPHORUS 3.3 MG/DL (2.5-4.9)
[2016-11-05] MEDS: SODIUM CHLORIDE 1 GRAM TAB PO SCH ×3 (04:23→21:52)
[2016-11-05] MEDS: LABETALOL HCL 100 MG TAB PO SCH ×3 (04:40→21:53)
[2016-11-05] MEDS: CEFEPIME INJ 2,000 MG in SODIUM CHLORIDE 0.9% INJ 100 ML IV SCH ×3 (04:40→21:51)
[2016-11-05] MEDS: hydrALAZINE HCL 50 MG TAB PO SCH ×2 (08:06→21:52)
[2016-11-05] MEDS: PRAVASTATIN SOD 40 MG TAB PO SCH (08:07)
[2016-11-05] MEDS: amLODIPine BESYLATE 5 MG TAB PO SCH (08:07)
[2016-11-05] MEDS: PANTOPRAZOLE SODIUM 40 MG VIAL IV SCH (08:08)
[2016-11-05] MEDS: FLUDROCORTISONE ACETATE 0.1 MG TAB PO SCH ×2 (08:08→21:52)
[2016-11-05] MEDS: levETIRAcetam INJ 500 MG in SODIUM CHLORIDE 0.9% INJ 100 ML IV SCH ×2 (08:08→21:51)
[2016-11-05] MEDS: SODIUM CHLORIDE 0.9% FLUSH 10 ML FLUSH IV FLUSH SCH (08:08)
[2016-11-05] MEDS: ARTIFICIAL TEARS OPTH SOLN 15 ML BTL EACH EYE SCH ×3 (08:09→19:08)
--- NOTE | 2016-11-05 09:49 | HHI.CCPN ---
Subjective Remarks/Hospital Course 51 year old male presents with being brought in as a trauma alert due to a head injury with altered mental status and a diminished GCS. The patient was in the bathroom and fell and hit his head. This was an unwitnessed fall. According to the patient's the patient had been unresponsive for approximately 15 minutes by the time ambulance services arrived. When they arrived the patient was noted to be a GCS of 14, however his mentation would wax and wane and go down as low as 3 again. On arrival to the emergency department he felt extremely nauseated. The CT of the head revealed diffuse subarachnoid bleed. 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 CT head today with some ventricular blood. ICP controlled and patient tolerates lightening of sedation. Volume loaded to maintain SBP > 130s. Opens eyes to voice. 10/07: BP controlled. TCDs to be done today. 10/08: BP control good. Well hydrated. No TCD evidence of spasm. 10/09: TCD today pending. CPP good. No seizure activity. Remains well hydrated. 10/10: TCDs no vasospasm. Remains well hydrated, well perfused. Some peripheral edema as expected. 10/11: Hemodynamics good. Bladder spasm continues. Try Flomax - an alpha kendall , will not impair cerebral vessels. 10/12: Episode of sepsis last night from obstructed Paul, JONH evident. Much improved now. 10/13: JONH improving. Narrow abx to GNR. 10/14: Aztreonam started for sputum, urine. CT Head acceptable. 10/15: No change in neuro status. BP control good. 10/16: Remains sedated, orally intubated on mechanical ventilation. Ventriculostomy in place. Underwent angiogram with injection of verapamil intra -arterial for minimal vasospasm on 10/15 10/17: Remains sedated, orally intubated on mechanical ventilation. Ventriculostomy drained 65 cc over 8 hours overnight. 10/18: off sedation. withdraws to pain. does not follow commands. per nursing, this is an exam change and he was previously following commands. 10/19: continues off sedation. ICP stable around 5. neuro exam stable. TCDs yesterday with questionable early spasm, but given stable neuro exam, decided to repeat TCD today to eval trend. 10/20: off sedation. taken yesterday for angio with IA verapamil for left MCA, SRI spasm. 10/21: spiked fever yesterday, white cultured. empirically started on broad spectrum abx. CSF sent for culture. initial CSF appeared cloudy but cell count and gram stain reassuring. TCDs yesterday without evidence of vasospasm. this AM sodium dropped from 147 to 139 with net -1L. likely early salt wasting, although up to this point urine studies have not shown concern for this up to now. 10/22: uop increased and sodium continues to downtrend despite salt tabs and ivf. still net -1L. urine studies concerning for salt wasting. sputum with enterobacter. neuro exam still stable. TCDs today without overt evidence of spasm. 10/23: still salt wasting. net -500cc/24h. aggressively replacing volume loss and sodium. TCDs today without any evidence of spasm and PI/LI now down to normal ranges. talked with Dr. Prater and while we have a window without spasm, will proceed with tracheostomy today. Likely PEG tube tomorrow. stable neurologic exam. 10/24: Na today 149, 3% at 10 ml per hour. s/p PEG today and still under heavy sedation. Was following commands to RN prior to receiving propofol for sedation. Trach done yesterday. -[id number] UO , getting IVF replacement 10/25: continues to have high UO 12L in 24 hours. D/w Dr. Mace -probably antidiuresis. Na 145. Remains on NS at 150 ml per hour and 3% at 10 ml per hour (increased 3% to 20 ml pr hour)/ weekly following commands in all 4 extremities , partial eye opening to command. Remains on Levophed at 8 mcg per min 10/26: Slightly less responsive today, getting TCDs. UO 7L -decreased from yesterday. Na 144 today. Remains on 8 mcg/min of Levophed to maintain cerebral perfusion. SUBJECTIVE 10/27: Currently on T piece. Remains somnolent. Intermittently follows commands for the nurses. Remains on 1.5 mcg/min Levophed to maintain cerebral perfusion 10/28/16: Remains on CPAP today. Followed commands in upper extremities for RN today. More somnolent and not following commands to me. On 6 mcg per min of Levophed to maintain CPP 10/29/16: Tolerating T piece 2-3 hours a day. Currently on T piece. Somnolent. Patient did follow commands earlier for the nurse. Na 146. UO normalizing 10/30: More awake today with partial eye opening. Followed commands all 4 ext. Na 148. Will stop 3% saline 10/31: Tolerating TP well today. Neuro unchanged. No clinical evidence of vasospasm. Na today pending. Getting 1U PRBC for Hb 7 11/01: Sitting up, now on t-piece. Awaiting LTAC. 11/02: Ni material change. Awaiting LTAC. 11/03: Tolerates sitting and moving around. Await LTAC. 11/04: Tachypnea improved, still moderate. Increasing oral HTN meds. 11/05: Breathing much more comfortably after aggressive diuretics. Weight and fluid balance about right. Objective Vital Signs Date Time Temp Pulse Resp B/P Pulse Ox O2 Delivery O2 Flow Rate FiO2 11/05/16 07:47 95 T-piece 6.00 28 11/05/16 06:00 86 11/05/16 04:00 98.0 26 142/81 Intake and Output 11/04/16 11/04/16 11/05/16 08:00 16:00 00:00 Intake Total 1110 ml 1240 ml 1267 ml Output Total 725 ml 625 ml 600 ml Balance 385 ml 615 ml 667 ml Result Diagram: 11/05/16 0325 11/05/16 0325 Imaging Last 24 hours Impressions Transcranial Doppler Study Complete 10/23/16 0700 Signed Impressions: Service Date/Time: Sunday, October 23, 2016 07:36 - CONCLUSION: Normal Lindegaard and Gregorio ratios, spasm is not suspected. Tim Garcia MD Objective Remarks GENERAL: Middle-aged male lying in bed, s/p trach. SKIN: Dry. HEAD: Normocephalic. EYES: Pupils are 2 mm and reactive bilaterally. NECK: Supple, trachea midline. Trach site clean, dry. CARDIOVASCULAR: Regular rate and rhythm. No JVD. RESPIRATORY:On Tp today, Breath sounds equal bilaterally. Clear, no wheezes or crackles. Good bilateral excursions. Comfortable. GASTROINTESTINAL: Abdomen soft, non-tender, nondistended. BS active. No guarding. EXTREMITIES: Nonfocal clubbing cyanosis or edema, well perfused. NEURO: Partial eye opening to sternal rub. Follows commands in bilateral upper and lower extremities. Withdraws to pain A/P Problem List: (1) 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 ICD Code: I60.8 Status: Acute (2) Intracranial hemorrhage ICD Code: I62.9 Status: Acute (3) Hypertension ICD Code: I10 Status: Acute Assessment and Plan Assessment: 51yM with aneurysmal SAH, post-bleed day 23, s/p basilar artery coiling 10/05. S/p IA Verapamil 10/15 and 10/19 for cerebral vasospasm. There is some improvement in encephalopathy, acute hypoxic respiratory failure. Resolving sepsis. critically ill. Now in possible cerebral salt wasting. Continue salt tabs, 3% saline, florinef, and NS 150 ml per hour. strict I/Os. TCDs per N/S. s/p Trach 10/23 and PEG 10/24. Also continues to grow Enterobacter in the sputum Plan: Neuro: Acute encephalopathy Aneurysmal Subarachnoid bleed 10/05, Basilar Aneurysm Cerebral Vasospasm - Núñez Veliz 5 Lucas grade 3. - Basilar tip coiled. - Nimodipine. Status post intra-arterial verapamil for vasospasm on 10/15, 10/19 - Pravachol - SBP target reduced by Dr. Mace to 120-160. - TCD's per N/S Dr Mace. No recent vasospasm - Neuro exam improving, weakly following commands all 4 ext Respiratory: Acute Hypoxic and Hypercarbic Respiratory Failure - Intubated for airway protection - s/p trach 10/23 now on CPAP/intermittent TP - Tolerating TP 2-3 hours per day - DuoNeb's as needed for wheezing, start scheduled DuoNeb as well T-piece well tolerated. CV: Septic Shock- resolved. - goal SBP 120-[address] mace - Off Levophed -Resolved Renal: Possible Cerebral Salt Wasting - UO has decreased now to normal range. About 5L in 24 hours - Goal euvolemia - Humberto for accurate I/Os Strict I/Os - NaCl tabs 3gm q8h - Florinef 0.2mg q12h - NS @ 120 ml per hour 10/30. DC 3% - strict I/Os q1h - urine studies 10/21 consistent with cerebral salt wasting: at that time was patient intravascularly hypovolemic on clinical exam - NaCl boluses as needed to maintain euvolemia. FEN/GI: Acute Protein Calorie Malnutrition- mild -- vital high protein 40mL/hr. -- daily BMP -- ICU electrolyte protocol. Heme/ID: Fever Leukocytosis prior UTI -- s/p full course abx -- 10/20 sputum culture- Enterobacter, some resistance. sensitive to Cefepime. -- 10/20 urine culture- NGTD -- 10/20 CSF: 0 wbc, glu 111, prot 27.8, culture NGTD -- 10/20 Blood cx: NGTD -- 10/21 CSF: NGTD. -- Dr. Mace d/c EVD 10/21 -- d/c d vancomycin and Flagyl. -- Anticipated completion of 10 day course of cefepime 2gm iv q8hr was on 10/29, repeat sputum cx GNR, ID pending. Continue cefepime for now Endocrine: Hyperglycemia of critical illness -- SSI Prophylaxis: - Teds SCDs - Started Lovenox per nsg 10/23/16 - Protonix IV Overall: Fine-tuning hypertension control. Well diuresed. Attempting to rid bacterial bronchitis. Awaiting LTAC approval. Stable respiratory and hemodynamic function. Problem Qualifiers (1) Hypertension: Qualified Code: I10 - Essential hypertension Dave Barragan MD November 05, 2016 09:49
--- NOTE | 2016-11-05 10:59 | HHI.NSPN ---
(Kathy Blanton) Note Status Status: Progress Note (Kathy Blanton) Interval History Interval History 51-year-old male admitted with subarachnoid hemorrhage, s/p endovascular coiling on 10/05/16. His mental status is improving, he follows commands 4. He is awaiting transfer to group home care facility. No acute events overnight. ( Kathy Blanton) Labs, Micro, & Vital Signs Results Date Time Temp Pulse Resp B/P Pulse Ox O2 Delivery O2 Flow Rate FiO2 11/05/16 07:47 95 T-piece 6.00 28 11/05/16 07:00 95 T-Piece 28 11/05/16 06:00 86 11/05/16 05:10 97 T-piece 4.00 28 11/05/16 04:00 98.0 99 26 142/81 97 11/05/16 04:00 97 11/05/16 02:00 99 11/05/16 00:00 98.8 97 28 146/94 92 11/05/16 00:00 97 11/04/16 22:00 97 11/04/16 20:30 112 11/04/16 20:00 98 T-Piece 28 11/04/16 20:00 99.0 108 24 156/98 97 11/04/16 19:49 95 T-piece 28 11/04/16 18:00 101 11/04/16 16:00 98.9 103 33 130/86 96 11/04/16 16:00 103 11/04/16 14:00 100 11/04/16 13:47 34 11/04/16 12:00 98.4 102 33 156/92 96 11/04/16 12:00 102 11/05/16 07:00 Intake Total 3372 ml Output Total 1575 ml Balance 1797 ml Constitutional Vital Signs Date Time Temp Pulse Resp B/P Pulse Ox O2 Delivery O2 Flow Rate FiO2 11/05/16 07:47 95 T-piece 6.00 28 11/05/16 07:00 95 T-Piece 28 11/05/16 06:00 86 11/05/16 05:10 97 T-piece 4.00 28 11/05/16 04:00 98.0 99 26 142/81 97 11/05/16 04:00 97 11/05/16 02:00 99 11/05/16 00:00 98.8 97 28 146/94 92 11/05/16 00:00 97 11/04/16 22:00 97 11/04/16 20:30 112 11/04/16 20:00 98 T-Piece 28 11/04/16 20:00 99.0 108 24 156/98 97 11/04/16 19:49 95 T-piece 28 11/04/16 18:00 101 11/04/16 16:00 98.9 103 33 130/86 96 11/04/16 16:00 103 11/04/16 14:00 100 11/04/16 13:47 34 11/04/16 12:00 98.4 102 33 156/92 96 11/04/16 12:00 102 11/05/16 07:00 Intake Total 3372 ml Output Total 1575 ml Balance 1797 ml (Kathy Blanton) Review of Systems/Exam Exam Awake, nonverbal due to tracheostomy. Following commands. CN: pupils equal, EOMs intact. Facial motor appear symmetric, smiled for exam Motor: Moves all 4 extremities to command Cerebellar cannot be assessed due to clinical condition Plantars downgoing bilaterally Abdomen soft, PEG tube in place (Kathy Blanton) Medications Current Medications Current Medications Medications (Trade) Dose Ordered Sig/Nava Route PRN Reason Start Time Stop Time Status Last Admin Dose Admin Acetaminophen (Tylenol) 650 mg Q6H PRN PO PAIN 1-10 AND/OR FEVER >101F 10/05/16 02:45 11/03/16 00:18 Pantoprazole Sodium (Protonix Inj) 40 mg DAILY IV 10/05/16 09:00 11/05/16 08:08 Artificial Tears (Tears Naturale Opth Soln) 1 drop TID EACH EYE 10/05/16 09:00 11/05/16 08:09 Ondansetron HCl (Zofran Inj) 4 mg Q6H PRN IV NAUSEA OR VOMITING 10/05/16 02:45 11/04/16 20:45 Miscellaneous Information 1 Q361D XX 10/05/16 02:45 10/05/16 02:45 Chlorhexidine Gluconate (Chlorhexidine 2% Cloth) Taper DAILY@04 TOP 10/05/16 04:00 10/01/17 03:59 11/05/16 04:00 Chlorhexidine Gluconate 3 pack 3 pack UNSCH PRN TOP HYGIENIC CARE 10/05/16 02:45 Levetriacetam 500 mg/Sodium Chloride 105 ml @ 420 mls/hr Q12HR IV 10/05/16 09:00 11/05/16 08:08 Nicardipine HCl/ Sodium Chloride (Cardene Inj/NS 250 ml Inj) 260 ml @ 0 mls/hr TITRATE IV 10/05/16 02:45 10/18/16 11:23 Labetalol HCl (Trandate Inj) 10 mg Q4H PRN IV PUSH SBP>140, DBP>90 10/05/16 02:45 11/03/16 05:45 Pravastatin Sodium (Pravachol) 40 mg DAILY PO 10/05/16 09:00 11/05/16 08:07 Sodium Chloride (NS Flush) See Protocol DAILY IV FLUSH 10/07/16 09:00 11/05/16 08:08 Sodium Chloride (NS Flush) See Protocol UNSCH PRN IV FLUSH SEE PROTOCOL TABLE 10/06/16 12:00 Sodium Chloride UNSCH PRN IV FLUSH SEE PROTOCOL TABLE 10/06/16 12:00 11/04/16 20:46 Norepinephrine Bitartrate/Sodium Chloride (Levophed Inj/NS 250 ml Inj) 254 ml @ 0 mls/hr TITRATE IV 10/06/16 18:00 10/28/16 20:14 Alteplase, Recombinant (Cathflo Activase Inj) 2 mg UNSCH PRN IV FLUSH PICC LINE OCCLUSION 10/19/16 16:15 11/01/16 21:47 Diphenhydramine HCl 6.25 mg 6.25 mg Q4H PRN IV PUSH itching, rash 10/19/16 19:15 11/04/16 20:45 Sodium Chloride (NS 1000 ml Inj) 1,000 ml @ 60 mls/hr [id number] IV 10/21/16 08:30 11/04/16 20:47 Sodium Chloride (Sodium Chloride) 3 gm Q8HR PO 10/22/16 14:00 11/04/16 22:23 Fludrocortisone Acetate (Florinef) 0.2 mg Q12HR PO 10/22/16 21:00 11/05/16 08:08 Enoxaparin Sodium 40 mg 40 mg Q24H SQ 10/23/16 21:00 11/04/16 20:47 Potassium Phosphate 30 mmol/ Sodium Chloride 260 ml @ 42 mls/hr UNSCH PRN IV SEE LABEL COMMENTS 10/24/16 15:15 Cefepime HCl/ Sodium Chloride (Maxipime Inj/NS Inj) 100 ml @ 200 mls/hr Q8HR IV 10/30/16 14:00 11/06/16 12:00 11/05/16 04:40 Fentanyl Citrate (fentaNYL INJ) 50 mcg Q3H PRN IV PAIN 1-10 10/30/16 15:15 11/05/16 05:07 Docusate Sodium 100 mg 100 mg Q12H G-TUBE 10/31/16 17:00 11/03/16 17:00 Potassium Chloride 100 ml @ 50 mls/hr Q2H PRN IV For Potassium 2.8 - 3.2 mEq/L 11/03/16 05:15 11/05/16 01:45 Potassium Chloride (KCl 20 Meq Premix Inj) 100 ml @ 50 mls/hr Q2H PRN IV For Potassium 2.8 - 3.2 mEq/L 11/03/16 05:15 Potassium Bicarb/ Potassium Chloride 50 meq 50 meq UNSCH PRN PO For Potassium 3.3 - 3.5 mEq/L 11/03/16 05:15 Potassium Chloride 100 ml @ 25 mls/hr UNSCH PRN IV For Potassium 3.3 - 3.5 mEq/L 11/03/16 05:15 11/05/16 04:42 Potassium Chloride 100 ml @ 50 mls/hr Q2H PRN IV For Potassium 3.3 - 3.5 mEq/L 11/03/16 05:15 Magnesium Sulfate/ Sodium Chloride (Magnesium Sulfate Inj/NS Inj) 100 ml @ 50 mls/hr UNSCH PRN IV For Magnesium 0.9 - 1.1 mg/dL 11/03/16 05:15 Magnesium Oxide 800 mg 800 mg UNSCH PRN PO For Magnesium 1.2 - 1.6 mg/dL 11/03/16 05:15 Magnesium Sulfate/ Sodium Chloride (Magnesium Sulfate Inj/NS Inj) 100 ml @ 50 mls/hr UNSCH PRN IV For Magnesium 1.2 - 1.6 mg/dL 11/03/16 05:15 Potassium Phosphate 2000 mg 2,000 mg Q4H PRN PO For Phosphorus < 2.5 mg/dL 11/03/16 05:15 Sodium Phosphate/ Sodium Chloride (Sodium Phosphate Inj/NS 250 ml Inj) 250 ml @ 42 mls/hr UNSCH PRN IV For Phosphorus < 2.5 mg/dL 11/03/16 05:15 Potassium Phosphate (K-Phos) 2,000 mg UNSCH PRN PO/TUBE SEE LABEL COMMENTS 11/03/16 05:15 Labetalol HCl (Trandate) 100 mg Q8H PO 11/03/16 20:00 11/05/16 04:40 Hydralazine HCl (Apresoline) 50 mg Q12HR PO 11/03/16 19:00 11/05/16 08:06 Amlodipine Besylate (Norvasc) 5 mg DAILY PO 11/04/16 09:00 11/05/16 08:07 (Kathy Blanton) Medical Decision Making MDM Remarks 51 y/o male presented 10/05/16 with SAH, basilar tip aneurysm s/p endovascular coiling (Kathy Blanton) Plan Plan Remarks Neurologically improving Continue current care Continue therapy and rehabilitation Clear to discharge to LTAC from neurosurgical standpoint (Kathy lBanton) Attending Statement The exam, history, and the medical decision-making described in the above note were completed with the assistance of the mid-level provider. I reviewed and agree with the findings presented. I attest that I had a [id number] encounter with the patient on the same day, and personally performed and documented my assessment and findings in the medical record. (Mj Muhammad MD) Kathy Blanton November 05, 2016 10:59 Mj Muhammad MD November 06, 2016 21:05
[2016-11-05] MEDS: SODIUM CHLOR 0.9% 1000 ML INJ 1,000 ML IV SCH (13:00)
--- NOTE | 2016-11-05 13:44 | PD.TRANSFR ---
Transfer Summary Admission Date Oct 05, 2016 at 02:26 Transfer Date: November 06, 2016 Admitting Diagnosis Intracranial hemorrhage Diagnoses: (1) 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 Diagnosis: Principal (2) Hypertension Diagnosis: Secondary (3) Major neurocognitive disorder due to vascular disease, without behavioral disturbance, severe Diagnosis: Secondary Significant Findings Presented about 5 weeks ago obtunded and hypertensive. 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 Received usual subarachnoid care including coiling of aneurysm, Nimotop, intra-arterial verapamil, cardene infusion. Now moves four limbs spontaneously. Has tracheostomy for airway control, breathing spontaneously for 5 days on trach collar. Transfer Summary/Subjective Waiting for LTAC placement. Medical record has been reviewed. Objective Vital Signs Date Time Temp Pulse Resp B/P Pulse Ox O2 Delivery O2 Flow Rate FiO2 11/05/16 07:47 95 T-piece 6.00 28 11/05/16 06:00 86 11/05/16 04:00 98.0 26 142/81 Intake and Output 11/04/16 11/04/16 11/05/16 08:00 16:00 00:00 Intake Total 1110 ml 1240 ml 1267 ml Output Total 725 ml 625 ml 600 ml Balance 385 ml 615 ml 667 ml Result Diagram: 11/05/16 0325 11/05/16 0325 Imaging Last 24 hours Impressions Transcranial Doppler Study Complete 10/23/16 0700 Signed Impressions: Service Date/Time: Sunday, October 23, 2016 07:36 - CONCLUSION: Normal [place] and [place] ratios, spasm is not suspected. Tim Garcia MD Objective Remarks GENERAL: Middle-aged male lying in bed, s/p trach. SKIN: Dry. HEAD: Normocephalic. EYES: Pupils are 2 mm and reactive bilaterally. NECK: Supple, trachea midline. Trach site clean, dry. CARDIOVASCULAR: Regular rate and rhythm. No JVD. RESPIRATORY:On Tp today, Breath sounds equal bilaterally. Clear, no wheezes or crackles. Good bilateral excursions. Comfortable. GASTROINTESTINAL: Abdomen soft, non-tender, nondistended. BS active. No guarding. EXTREMITIES: Nonfocal clubbing cyanosis or edema, well perfused. NEURO: Partial eye opening to sternal rub. Follows commands in bilateral upper and lower extremities. Withdraws to pain A/P Problem List: (1) 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 ICD Code: I60.8 Status: Acute (2) Intracranial hemorrhage ICD Code: I62.9 Status: Acute (3) Hypertension ICD Code: I10 Status: Acute Assessment and Plan Assessment: 51yM with aneurysmal SAH, post-bleed day , s/p basilar artery coiling 10/05. S/p IA Verapamil 10/15 and 10/19 for cerebral vasospasm. There is some improvement in encephalopathy, acute hypoxic respiratory failure. Resolving sepsis. critically ill. Now in possible cerebral salt wasting. Continue salt tabs, 3% saline, florinef, and NS 150 ml per hour. strict I/Os. TCDs per N/S. s/p Trach 10/23 and PEG 10/24. Also continues to grow Enterobacter in the sputum Plan: Neuro: Acute encephalopathy Aneurysmal Subarachnoid bleed 10/05, Basilar Aneurysm Cerebral Vasospasm - Núñez Vel[place] 5 Lucas grade 3. - Basilar tip coiled. - Nimodipine. Status post intra-arterial verapamil for vasospasm on 10/15, 10/19 - Pravachol - SBP target reduced by Dr. Mace to 120-160. - TCD's per N/S Dr Mace. No recent vasospasm - Neuro exam improving, weakly following commands all 4 ext Respiratory: Acute Hypoxic and Hypercarbic Respiratory Failure - Intubated for airway protection - s/p trach 10/23 now on CPAP/intermittent TP - Tolerating TP 2-3 hours per day - DuoNeb's as needed for wheezing, start scheduled DuoNeb as well T-piece well tolerated. CV: Septic Shock- resolved. - goal SBP 120-[address] mace - Off Levophed -Resolved Renal: Possible Cerebral Salt Wasting - UO has decreased now to normal range. About 5L in 24 hours - Goal euvolemia - Paul for accurate I/Os Strict I/Os - NaCl tabs 3gm q8h - Florinef 0.2mg q12h - NS @ 120 ml per hour 10/30. DC 3% - strict I/Os q1h - urine studies 10/21 consistent with cerebral salt wasting: at that time was patient intravascularly hypovolemic on clinical exam - NaCl boluses as needed to maintain euvolemia. FEN/GI: Acute Protein Calorie Malnutrition- mild -- vital high protein 40mL/hr. -- daily BMP -- ICU electrolyte protocol. Heme/ID: Fever Leukocytosis prior UTI -- s/p full course abx -- 10/20 sputum culture- Enterobacter, some resistance. sensitive to Cefepime. -- 10/20 urine culture- NGTD -- 10/20 CSF: 0 wbc, glu 111, prot 27.8, culture NGTD -- 10/20 Blood cx: NGTD -- 10/21 CSF: NGTD. -- Dr. Mace d/c EVD 10/21 -- d/c d vancomycin and Flagyl. -- Anticipated completion of 10 day course of cefepime 2gm iv q8hr was on 10/29, repeat sputum cx GNR, ID pending. Continue cefepime for now Endocrine: Hyperglycemia of critical illness -- SSI Prophylaxis: - Teds SCDs - Started Lovenox per nsg 10/23/16 - Protonix IV Overall: Fine-tuning hypertension control. Well diuresed. Attempting to rid bacterial bronchitis. Awaiting LTAC approval. Stable respiratory and hemodynamic function. Problem Qualifiers (1) Hypertension: Qualified Code: I10 - Essential hypertension Dave Barragan MD November 05, 2016 13:44
[2016-11-05] MEDS: ENOXAPARIN SODIUM 40 MG/0.4 ML SYRINGE SQ SCH (21:52)
[2016-11-05] MEDS: ACETAMINOPHEN 325 MG TAB PO PRN (21:53)
[2016-11-06] VITALS (12 sets, daily range): BP systolic 128–153; BP diastolic 69–89; PULSE 92–111; RESP 22–26; TEMP 98.4–99; O2SAT 93–98
[2016-11-06] MEDS: CHLORHEXIDINE GLUCONATE 2 % 1 PACK (2 CLOTHS) TOP SCH (04:00)
[2016-11-06] MEDS: LABETALOL HCL 100 MG TAB PO SCH ×3 (04:02→19:57)
[2016-11-06] MEDS: NYSTATIN 100,000 U/GM PWD 15 GM BTL TOPICAL SCH ×3 (04:02→17:53)
[2016-11-06] MEDS: ACETAMINOPHEN 325 MG TAB PO PRN ×2 (05:04→19:56)
[2016-11-06] MEDS: SODIUM CHLORIDE 1 GRAM TAB PO SCH ×3 (05:05→20:58)
[2016-11-06] MEDS: CEFEPIME INJ 2,000 MG in SODIUM CHLORIDE 0.9% INJ 100 ML IV SCH (05:05)
[2016-11-06] MEDS: SODIUM CHLOR 0.9% 1000 ML INJ 1,000 ML IV SCH ×2 (05:05→20:59)
[2016-11-06] MEDS: levETIRAcetam INJ 500 MG in SODIUM CHLORIDE 0.9% INJ 100 ML IV SCH ×2 (09:13→19:57)
[2016-11-06] MEDS: hydrALAZINE HCL 50 MG TAB PO SCH ×2 (09:14→19:57)
[2016-11-06] MEDS: FLUDROCORTISONE ACETATE 0.1 MG TAB PO SCH ×2 (09:14→19:57)
[2016-11-06] MEDS: amLODIPine BESYLATE 5 MG TAB PO SCH (09:14)
[2016-11-06] MEDS: SODIUM CHLORIDE 0.9% FLUSH 10 ML FLUSH IV FLUSH SCH (09:14)
[2016-11-06] MEDS: PRAVASTATIN SOD 40 MG TAB PO SCH (09:14)
[2016-11-06] MEDS: PANTOPRAZOLE SODIUM 40 MG VIAL IV SCH (09:14)
[2016-11-06] MEDS: ARTIFICIAL TEARS OPTH SOLN 15 ML BTL EACH EYE SCH ×3 (09:16→17:53)
--- NOTE | 2016-11-06 09:48 | HHI.NSPN ---
(Kathy Blanton) Note Status Status: Progress Note (Kathy Blanton) Interval History Interval History 51-year-old male admitted with subarachnoid hemorrhage, s/p endovascular coiling on 10/05/16. 11/05: His mental status is improving, he follows commands 4. He is awaiting transfer to group home care facility. No acute events overnight. 11/06: slightly restless today, has transfer order out of unit pending. no changes to neuro checks overnight. (Kathy Blanton) Labs, Micro, & Vital Signs Results Date Time Temp Pulse Resp B/P Pulse Ox O2 Delivery O2 Flow Rate FiO2 11/06/16 07:40 95 T-piece 6.00 28 11/06/16 06:00 92 11/06/16 04:00 95 11/06/16 04:00 98.6 95 24 140/82 93 11/06/16 02:00 111 11/06/16 00:00 99.0 106 26 130/72 94 11/06/16 00:00 106 11/05/16 22:00 108 11/05/16 21:45 96 T-piece 5.00 28 11/05/16 20:00 103 11/05/16 20:00 106 11/05/16 20:00 99.8 106 26 153/92 96 11/05/16 20:00 96 T-Piece 28 11/05/16 16:00 98.3 115 25 116/79 92 11/05/16 16:00 115 11/05/16 14:00 114 11/05/16 12:00 98.6 98 25 151/96 96 11/05/16 12:00 98 11/05/16 10:00 98 11/06/16 07:00 Intake Total 2782 ml Output Total 2600 ml Balance 182 ml Constitutional Vital Signs Date Time Temp Pulse Resp B/P Pulse Ox O2 Delivery O2 Flow Rate FiO2 11/06/16 07:40 95 T-piece 6.00 28 11/06/16 06:00 92 11/06/16 04:00 95 11/06/16 04:00 98.6 95 24 140/82 93 11/06/16 02:00 111 11/06/16 00:00 99.0 106 26 130/72 94 11/06/16 00:00 106 11/05/16 22:00 108 11/05/16 21:45 96 T-piece 5.00 28 11/05/16 20:00 103 11/05/16 20:00 106 11/05/16 20:00 99.8 106 26 153/92 96 11/05/16 20:00 96 T-Piece 28 11/05/16 16:00 98.3 115 25 116/79 92 11/05/16 16:00 115 11/05/16 14:00 114 11/05/16 12:00 98.6 98 25 151/96 96 11/05/16 12:00 98 11/05/16 10:00 98 11/06/16 07:00 Intake Total 2782 ml Output Total 2600 ml Balance 182 ml (Kathy Blanton) Review of Systems/Exam Exam Awake, nonverbal due to tracheostomy. Slightly restless, following commands. CN: pupils equal, EOMs intact. Facial motor appear symmetric, smiled for exam Motor: Moves all 4 extremities to command Cerebellar cannot be assessed due to clinical condition Plantars downgoing bilaterally Abdomen soft, PEG tube in place (Kathy Blanton) Medications Current Medications Current Medications Medications (Trade) Dose Ordered Sig/Nava Route PRN Reason Start Time Stop Time Status Last Admin Dose Admin Acetaminophen (Tylenol) 650 mg Q6H PRN PO PAIN 1-10 AND/OR FEVER >101F 10/05/16 02:45 11/06/16 05:04 Pantoprazole Sodium (Protonix Inj) 40 mg DAILY IV 10/05/16 09:00 11/06/16 09:14 Artificial Tears (Tears Naturale Opth Soln) 1 drop TID EACH EYE 10/05/16 09:00 11/06/16 09:16 Ondansetron HCl (Zofran Inj) 4 mg Q6H PRN IV NAUSEA OR VOMITING 10/05/16 02:45 11/04/16 20:45 Miscellaneous Information 1 Q361D XX 10/05/16 02:45 10/05/16 02:45 Chlorhexidine Gluconate (Chlorhexidine 2% Cloth) Taper DAILY@04 TOP 4/5/17 04:00 10/01/17 03:59 11/06/16 04:00 Chlorhexidine Gluconate 3 pack 3 pack UNSCH PRN TOP HYGIENIC CARE 10/05/16 02:45 Levetriacetam/ Sodium Chloride (Keppra Inj/NS Inj) 105 ml @ 420 mls/hr Q12HR IV 10/05/16 09:00 11/06/16 09:13 Pravastatin Sodium (Pravachol) 40 mg DAILY PO 10/05/16 09:00 11/06/16 09:14 Sodium Chloride (NS Flush) See Protocol DAILY IV FLUSH 10/07/16 09:00 11/06/16 09:14 Sodium Chloride (NS Flush) See Protocol UNSCH PRN IV FLUSH SEE PROTOCOL TABLE 10/06/16 12:00 Sodium Chloride UNSCH PRN IV FLUSH SEE PROTOCOL TABLE 10/06/16 12:00 11/04/16 20:46 Norepinephrine Bitartrate 4 mg/ Sodium Chloride 254 ml @ 0 mls/hr TITRATE IV 10/06/16 18:00 10/28/16 20:14 Sodium Chloride (NS 1000 ml Inj) 1,000 ml @ 60 mls/hr [id number] IV 10/21/16 08:30 11/06/16 05:05 Sodium Chloride (Sodium Chloride) 3 gm Q8HR PO 10/22/16 14:00 11/06/16 05:05 Fludrocortisone Acetate (Florinef) 0.2 mg Q12HR PO 10/22/16 21:00 11/06/16 09:14 Enoxaparin Sodium 40 mg 40 mg Q24H SQ 10/23/16 21:00 11/05/16 21:52 Potassium Phosphate 30 mmol/ Sodium Chloride 260 ml @ 42 mls/hr UNSCH PRN IV SEE LABEL COMMENTS 10/24/16 15:15 Cefepime HCl/ Sodium Chloride (Maxipime Inj/NS Inj) 100 ml @ 200 mls/hr Q8HR IV 10/30/16 14:00 11/06/16 12:00 11/06/16 05:05 Docusate Sodium 100 mg 100 mg Q12H G-TUBE 10/31/16 17:00 11/03/16 17:00 Potassium Chloride 100 ml @ 50 mls/hr Q2H PRN IV For Potassium 2.8 - 3.2 mEq/L 11/03/16 05:15 11/05/16 01:45 Potassium Chloride (KCl 20 Meq Premix Inj) 100 ml @ 50 mls/hr Q2H PRN IV For Potassium 2.8 - 3.2 mEq/L 11/03/16 05:15 Potassium Bicarb/ Potassium Chloride 50 meq 50 meq UNSCH PRN PO For Potassium 3.3 - 3.5 mEq/L 11/03/16 05:15 Potassium Chloride 100 ml @ 25 mls/hr UNSCH PRN IV For Potassium 3.3 - 3.5 mEq/L 11/03/16 05:15 11/05/16 04:42 Potassium Chloride 100 ml @ 50 mls/hr Q2H PRN IV For Potassium 3.3 - 3.5 mEq/L 11/03/16 05:15 Magnesium Sulfate/ Sodium Chloride (Magnesium Sulfate Inj/NS Inj) 100 ml @ 50 mls/hr UNSCH PRN IV For Magnesium 0.9 - 1.1 mg/dL 11/03/16 05:15 Magnesium Oxide 800 mg 800 mg UNSCH PRN PO For Magnesium 1.2 - 1.6 mg/dL 11/03/16 05:15 Magnesium Sulfate/ Sodium Chloride (Magnesium Sulfate Inj/NS Inj) 100 ml @ 50 mls/hr UNSCH PRN IV For Magnesium 1.2 - 1.6 mg/dL 11/03/16 05:15 Potassium Phosphate 2000 mg 2,000 mg Q4H PRN PO For Phosphorus < 2.5 mg/dL 11/03/16 05:15 Sodium Phosphate/ Sodium Chloride (Sodium Phosphate Inj/NS 250 ml Inj) 250 ml @ 42 mls/hr UNSCH PRN IV For Phosphorus < 2.5 mg/dL 11/03/16 05:15 Potassium Phosphate (K-Phos) 2,000 mg UNSCH PRN PO/TUBE SEE LABEL COMMENTS 11/03/16 05:15 Labetalol HCl (Trandate) 100 mg Q8H PO 11/03/16 20:00 11/06/16 04:02 Hydralazine HCl (Apresoline) 50 mg Q12HR PO 11/03/16 19:00 11/06/16 09:14 Amlodipine Besylate (Norvasc) 5 mg DAILY PO 11/04/16 09:00 11/06/16 09:14 Nystatin (Mycostatin Powder) 1 applic TID TOPICAL 11/06/16 09:00 11/06/16 04:02 (Kathy Blanton) Medical Decision Making MDM Remarks 51 y/o male presented 10/05/16 with SAH, basilar tip aneurysm s/p endovascular coiling, stable neuro exam (Kathy Blanton) Plan Plan Remarks cont current care continue therapy and rehabilitation awaiting discharge to LTAC ok transfer out of unit near nursing station with tele pulse ox (Kathy Blanton) Attending Statement The exam, history, and the medical decision-making described in the above note were completed with the assistance of the mid-level provider. I reviewed and agree with the findings presented. I attest that I had a [id number] encounter with the patient on the same day, and personally performed and documented my assessment and findings in the medical record. (Mj Muhammad MD) Kathy Blanton November 06, 2016 09:48 Mj Muhammad MD November 06, 2016 21:29
--- NOTE | 2016-11-06 12:57 | HHI.PR ---
Subjective Remarks In restraints, patient is agitated on/off. Has diarrhea, rectal incontinence on /off with coughing especially. Denies any pain at this time. He is following commands, appears sleepy, takes time to answer questions. No fever or chills. No n/v. Patient doesn't appear in acute distress. Objective Vitals Vital Signs Date Time Temp Pulse Resp B/P Pulse Ox O2 Delivery O2 Flow Rate FiO2 11/06/16 10:00 102 11/06/16 08:00 98.4 100 24 145/80 96 11/06/16 08:00 95 11/06/16 07:40 95 T-piece 6.00 28 11/06/16 07:00 96 T-Piece 28 11/06/16 06:00 92 11/06/16 04:00 95 11/06/16 04:00 98.6 95 24 140/82 93 11/06/16 02:00 111 11/06/16 00:00 99.0 106 26 130/72 94 11/06/16 00:00 106 11/05/16 22:00 108 11/05/16 21:45 96 T-piece 5.00 28 11/05/16 20:00 103 11/05/16 20:00 106 11/05/16 20:00 99.8 106 26 153/92 96 11/05/16 20:00 96 T-Piece 28 11/05/16 16:00 98.3 115 25 116/79 92 11/05/16 16:00 115 11/05/16 14:00 114 I/O 11/05/16 11/05/16 11/05/16 11/06/16 11/06/16 11/06/16 07:00 15:00 23:00 07:00 15:00 23:00 Intake Total 865 ml 1150 ml 888 ml 744 ml Output Total 350 ml 1600 ml 550 ml 450 ml Balance 515 ml -450 ml 338 ml 294 ml IV Total 611 ml 763 ml 548 ml 422 ml Tube Feeding 254 ml 287 ml 220 ml 222 ml Other 100 ml 120 ml 100 ml Output Urine Total 350 ml 1000 ml 550 ml 450 ml Stool Total 0 ml 600 ml # Bowel Movements 2 3 Result Diagram: 11/05/16 0325 11/05/16 032 Imaging Last Impressions Chest X-Ray 11/01/16 0600 Signed Impressions: Service Date/Time: Tuesday, November 01, 2016 04:37 - CONCLUSION: 1. No acute cardiopulmonary disease. Trevin De eLón MD Head CT 10/28/16 0000 Signed Impressions: Service Date/Time: Friday, October 28, 2016 05:32 - CONCLUSION: 1. Slowly resolving subarachnoid blood. 2. No significant change small intraventricular blood. 3. No significant change in the small left parietal subdural hemorrhage. 4. Evolving left thalamic hemorrhage not significantly changed in size. 5. Right ventriculostomy catheter removed in the interim. Mildly prominent lateral ventricles as above. 6. No new blood or new infarct. Tim Hammonds MD Transcranial Doppler Study Complete 10/26/16 0700 Signed Impressions: Service Date/Time: Wednesday, October 26, 2016 08:20 - CONCLUSION: Minimal interval improvement with no evidence for vasospasm. Christian Song MD FACR Neck CTA 10/19/16 0000 Signed Impressions: Service Date/Time: Wednesday, October 19, 2016 14:19 - CONCLUSION: Negative for dissection or significant stenosis. Christian Song MD FACR Head CTA 10/19/16 0000 Signed Impressions: Service Date/Time: Wednesday, October 19, 2016 14:19 - CONCLUSION: 1. Interval development of significant vasospasm in the left MCA and SRI territories. 2. Mild vasospasm in the basilar artery.. Gume Mckeon MD Cerebral Arteriogram 10/19/16 0000 Signed Impressions: Service Date/Time: Wednesday, October 19, 2016 16:06 - CONCLUSION: 1. Vasospasm in the left MCA and SRI territories 2. Spasmolytic infusion, left internal carotid artery as above.. 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 Gume Mckeon MD Pelvis X-Ray 10/05/16109 Signed Impressions: Service Date/Time: Wednesday, October 05, 2016 01:22 - CONCLUSION: Unremarkable examination of the pelvis. Ruben Acuña Jr., MD Chest CT 10/05/16109 Signed Impressions: Service Date/Time: Wednesday, October 05, 2016 01:46 - CONCLUSION: 1. No acute intrathoracic abnormality. 2. Bibasilar atelectasis. 3. Cardiomegaly. 4. Prior granulomatous disease. Ruben Acuña Jr., MD Cervical Spine CT 10/05/16109 Signed Impressions: Service Date/Time: Wednesday, October 05, 2016 01:40 - CONCLUSION: 1. No fracture or dislocation. 2. Multilevel degenerative changes. Ruben Acuña Jr., MD Abdomen/Pelvis CT 10/05/16109 Signed Impressions: Service Date/Time: Wednesday, October 05, 2016 01:46 - CONCLUSION: 1. No acute trauma. 2. Rounded area of decreased density involving the pancreatic head. I cannot completely exclude pancreatic head mass. At some point MRI of the pancreas is suggested to further evaluate. 3. Focal area of poor enhancement involving the left kidney. This may relate to an area of parenchymal scarring. I cannot completely exclude a mass. This can be further assessed with MRI as well. Ruben Acuña Jr., MD Objective Remarks GENERAL: Middle-aged male lying in bed, s/p trach. Appears agitated/on off, following commands, takes time to answer questions., Appears chronically ill patient. SKIN: Dry. Oral thrush. HEAD: Normocephalic. EYES: Pupils are 2 mm and reactive bilaterally. NECK: Supple, trachea midline. Trach site clean, dry. CARDIOVASCULAR: Regular rate and rhythm. No JVD. RESPIRATORY:On Tp today, Breath sounds equal bilaterally. Clear, no wheezes or crackles. Good bilateral excursions. Comfortable. GASTROINTESTINAL: Abdomen soft, non-tender, nondistended. BS active. No guarding. EXTREMITIES: Nonfocal clubbing cyanosis or edema, well perfused. NEURO: Partial eye opening to sternal rub. Follows commands in bilateral upper and lower extremities. Withdraws to pain A/P Problem List: (1) 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 ICD Code: I60.8 Status: Acute (2) Hypertension ICD Code: I10 Status: Acute (3) Major neurocognitive disorder due to vascular disease, without behavioral disturbance, severe ICD Code: F01.50 Status: Acute Assessment and Plan Assessment: 51yM with aneurysmal SAH, post-bleed day 23, s/p basilar artery coiling 10/05. S/p IA Verapamil 10/15 and 10/19 for cerebral vasospasm. There is some improvement in encephalopathy, acute hypoxic respiratory failure. Resolving sepsis. critically ill. Now in possible cerebral salt wasting. Continue salt tabs, 3% saline, florinef, and NS 150 ml per hour. strict I/Os. TCDs per N/S. s/p Trach 10/23 and PEG 10/24. Also continues to grow Enterobacter in the sputum Plan: Neuro: Acute encephalopathy Aneurysmal Subarachnoid bleed 10/05, Basilar Aneurysm Cerebral Vasospasm - Núñez Veliz 5 Lucas grade 3. - Basilar tip coiled. - Nimodipine. Status post intra-arterial verapamil for vasospasm on 10/15, 10/19 - Pravachol - SBP target reduced by Dr. Mace to 120-160. - TCD's per N/S Dr Mace. No recent vasospasm - Neuro exam improving, weakly following commands all 4 ext - Agitated requiring restraints, start seroquel. Respiratory: Acute Hypoxic and Hypercarbic Respiratory Failure - Intubated for airway protection - s/p trach 10/23 now on CPAP/intermittent TP - Tolerating TP 2-3 hours per day - DuoNeb's as needed for wheezing, start scheduled DuoNeb as well T-piece well tolerated. CV: Septic Shock- resolved. - goal SBP 120-[address] mace - Off Levophed -Resolved Renal: Possible Cerebral Salt Wasting - UO has decreased now to normal range. About 5L in 24 hours - Goal euvolemia - Paul for accurate I/Os Strict I/Os - NaCl tabs 3gm q8h - Florinef 0.2mg q12h - NS @ 120 ml per hour 10/30. DC 3% - strict I/Os q1h - urine studies 10/21 consistent with cerebral salt wasting: at that time was patient intravascularly hypovolemic on clinical exam - NaCl boluses as needed to maintain euvolemia. FEN/GI: Acute Protein Calorie Malnutrition- mild -- vital high protein 40mL/hr. -- daily BMP -- ICU electrolyte protocol. Oral thrush -- Add magic mouth wash Heme/ID: Fever Leukocytosis prior UTI -- s/p full course abx -- 10/20 sputum culture- Enterobacter, some resistance. sensitive to Cefepime. -- 10/20 urine culture- NGTD -- 10/20 CSF: 0 wbc, glu 111, prot 27.8, culture NGTD -- 10/20 Blood cx: NGTD -- 10/21 CSF: NGTD. -- Dr. Mace d/c EVD 10/21 -- d/c d vancomycin and Flagyl. -- Anticipated completion of 10 day course of cefepime 2gm iv q8hr was on 10/29, repeat sputum cx GNR, ID pending. Continue cefepime for now Endocrine: Hyperglycemia of critical illness -- SSI Prophylaxis: - Teds SCDs - Started Lovenox per nsg 10/23/16 - Protonix IV Overview: Fine-tuning hypertension control. Well diuresed. Attempting to rid bacterial bronchitis. Awaiting LTAC approval. Stable respiratory and hemodynamic function. Discussed with the patient, nurse. Problem Qualifiers (1) Hypertension: Qualified Code: I10 - Essential hypertension Adele Cooper MD November 06, 2016 12:57
[2016-11-06] MEDS: DOCUSATE SODIUM 100 MG/10 ML UDC G-TUBE SCH (15:20)
[2016-11-06] MEDS: NYSTAT/DIPHENHY/LIDO MOUTHWASH (Adult) 120ML SWISH-SWAL SCH ×2 (17:52→19:57)
[2016-11-06] MEDS: POTASSIUM BICARBONATE 25 MEQ EFFERVESCENT TAB PO SCH (17:52)
[2016-11-06] MEDS: ENOXAPARIN SODIUM 40 MG/0.4 ML SYRINGE SQ SCH (19:57)
[2016-11-06] MEDS: LACTOBACILLUS ACIDOPHILUS TAB PO SCH (19:58)
[2016-11-06 20:54] LABS: BICARBONATE 24.1 MEQ/L (21.0-32.0); CALCIUM 6.7 MG/DL (8.5-10.1); CREATININE 0.52 MG/DL (0.60-1.30)
[2016-11-06] MEDS: ONDANSETRON HCL 4 MG/2 ML VIAL IV PRN (20:58)
[2016-11-06] MEDS: POTASSIUM CHLOR 40 MEQ PREMIX 100 ML IV PRN ×2 (21:01→21:58)
[2016-11-06] MEDS: POTASSIUM CHLORIDE 25 MEQ EFFERVESCENT TAB PO PRN (21:05)
[2016-11-06 21:17] LABS: CALCIUM-PROTEIN CORRECTED 7.8 MG/DL (8.5-10.1)
[2016-11-07] VITALS (8 sets, daily range): BP systolic 134–140; BP diastolic 70–90; PULSE 97–118; RESP 23–28; TEMP 98.4–99.2; O2SAT 93–98
[2016-11-07] MEDS: CHLORHEXIDINE GLUCONATE 2 % 1 PACK (2 CLOTHS) TOP SCH (03:57)
[2016-11-07] MEDS: LABETALOL HCL 100 MG TAB PO SCH ×3 (03:57→21:41)
[2016-11-07 04:17] LABS: AUTOMATED NEUTROPHIL # 5.8 TH/MM3 (1.8-7.7); BASOPHIL # 0.1 TH/MM3 (0-0.2); BASOPHIL % 0.9 % (0.0-2.0); EOSINOPHIL # 0.4 TH/MM3 (0-0.4); EOSINOPHIL % 4.3 % (0.0-4.0); HEMOGLOBIN 9.7 GM/DL (13.0-17.0); LYMPH % 16.1 % (9.0-44.0); LYMPHOCYTE # 1.3 TH/MM3 (1.0-4.8); MEAN CELL VOLUME 86.7 FL (80.0-100.0); MEAN CORPUSCULAR HGB CONC 33.4 % (32.0-36.0); MEAN PLATELET VOLUME 9.1 FL (7.0-11.0); MONO % 8.7 % (0.0-8.0); MONOCYTE # 0.7 TH/MM3 (0-0.9); PLATELET COUNT 150 TH/MM3 (150-450); RED BLOOD COUNT 3.35 MIL/MM3 (4.50-5.90); WHITE BLOOD COUNT 8.3 TH/MM3 (4.0-11.0)
[2016-11-07 04:49] LABS: BICARBONATE 27.1 MEQ/L (21.0-32.0); CALCIUM 8.3 MG/DL (8.5-10.1); CREATININE 0.72 MG/DL (0.60-1.30)
[2016-11-07] MEDS: SODIUM CHLORIDE 1 GRAM TAB PO SCH ×3 (05:15→21:33)
[2016-11-07] MEDS: POTASSIUM CHLOR 40 MEQ PREMIX 100 ML IV PRN ×3 (05:18→21:41)
[2016-11-07] MEDS: SODIUM CHLORIDE 0.9% FLUSH 10 ML FLUSH IV FLUSH SCH (09:00)
[2016-11-07] MEDS: ARTIFICIAL TEARS OPTH SOLN 15 ML BTL EACH EYE SCH ×3 (09:37→18:00)
[2016-11-07] MEDS: levETIRAcetam INJ 500 MG in SODIUM CHLORIDE 0.9% INJ 100 ML IV SCH ×2 (09:38→21:33)
[2016-11-07] MEDS: NYSTAT/DIPHENHY/LIDO MOUTHWASH (Adult) 120ML SWISH-SWAL SCH ×4 (09:39→21:34)
[2016-11-07] MEDS: amLODIPine BESYLATE 5 MG TAB PO SCH (09:39)
[2016-11-07] MEDS: hydrALAZINE HCL 50 MG TAB PO SCH ×2 (09:39→21:33)
[2016-11-07] MEDS: FLUDROCORTISONE ACETATE 0.1 MG TAB PO SCH ×2 (09:39→21:33)
[2016-11-07] MEDS: LACTOBACILLUS ACIDOPHILUS TAB PO SCH ×2 (09:39→21:33)
[2016-11-07] MEDS: NYSTATIN 100,000 U/GM PWD 15 GM BTL TOPICAL SCH ×3 (09:40→18:00)
[2016-11-07] MEDS: POTASSIUM BICARBONATE 25 MEQ EFFERVESCENT TAB PO SCH (09:43)
[2016-11-07] MEDS: PRAVASTATIN SOD 40 MG TAB PO SCH (09:44)
[2016-11-07] MEDS: PANTOPRAZOLE SODIUM 40 MG VIAL IV SCH (09:44)
[2016-11-07] MEDS: QUEtiapine FUMARATE 25 MG TAB PO SCH ×2 (09:44→13:20)
--- NOTE | 2016-11-07 10:02 | HHI.NSPN ---
(Meir Sánchez MANDREL PULLER) Note Status Status: Progress Note (Meir Sánchez) Interval History Interval History 51 year old male presents with being brought in as a trauma alert due to a head injury with altered mental status and a diminished GCS. The patient was in the bathroom and fell and hit his head. This was an unwitnessed fall. According to the patient's the patient had been unresponsive for approximately 15 minutes by the time ambulance services arrived. When they arrived the patient was noted to be a GCS of 14, however his mentation would wax and wane and go down as low as 3 again. On arrival to the emergency department he felt extremely nauseated. The CT of the head revealed diffuse subarachnoid bleed. Emergently intubated in the trauma bay. Possible seizure activity. Intubated in the emergency room. 10/05/16: Endovascular coiling 10/07/16 rinse intubated and sedated. Ventriculostomy in place 10/09/16: Remains intubated and sedated. Increased agitation with attempts at sedation vacation 10/17/16: Pupils 2 mm. Intubated and sedated. Somewhat more responsive with decreased sedation. External ventricular drain and closed to reservoir again today. 10/19/16: TCD with vasospasm, to angio with 10 mg Verapamil IA given. 10/20/16: Patient with fevers up to 102.8 per Nursing and cultures sent, Nursing reports CSF milky & with sediment. TCD being repeated this afternoon due to vast difference from that done this morning and yesterday. [employer] increased SBP parameters to 180-200 mm Hg to help overcome vasospasms. No increase in ICP. 10/21/16: Still with elevated temp but not as high. TCD yesterday demonstrated resolution of vasospasms but today it demonstrated a right SRI vasospasm. Patient with facial grimacing and attempted eye opening. CSF specimen sent yesterday w/o any organisms or WBCs seen on Gram stain. 10/23/16: Trach done 10/24/16: PEG done at bedside prior to being seen. Nursing reports prior to sedation he was following commands to all extremities although right was weaker. Mild vasospasm per TCD. 10/25/16: No evident distress. Noted to move BLE & slight LUE spontaneously. Did open eyes partially after having been stimulated. TCD being done. 10/26/16: No evident distress, attempted eye opening to verbal & attempted to follow some commands, some spontaneous movements noted BLE & LUE. TCD being done. 10/27/16: No apparent distress, no eye opening, follows some commands. 10/28/16: Remains tracheed, NAD, follows some commands, spontaneous movement of BLE & LUE noted. 10/29/16: Remains stable follows some commands, spontaneous movement of BLE & LUE noted 10/31/16: Patient trached and on T-piece when seen, follows commands, spontaneous movement of extremities noted. Did attempt to mouth words. 11/01/16: Patient doing well, on T-piece, follows commands, moving both feet spontaneously. Nursing reports he is intermittently following command and mouthing words. 11/02/16: Patient continues to do well, on T-piece, follows some commands, he does turn his head in direction of practitioner's voice. 11/03/16: Patient doing quite well today, on T-piece, follows commands, opens eyes briefly and holds up two fingers on left hand to command and tries with right. 11/04/16: Patient initially seen this morning with Therapy at the bedside. He had his eyes open at the time and would do a hand squeeze to command. When seen later he would not open his eyes but did follow commands and was able to show two fingers with each hand to command. Nursing reported that the patient mouthed that the RUE was not working. 11/05: His mental status is improving, he follows commands 4. He is awaiting transfer to senior care care facility. No acute events overnight. 11/06: slightly restless today, has transfer order out of unit pending. no changes to neuro checks overnight. 11/07: Patient doing well, follows some simple commands but not consistently ( Meir Sánchez) Labs, Micro, & Vital Signs Results Allergies Coded Allergies Type Severity Reaction Last Updated Verified Penicillin Allergy Unknown 10/06/16 Yes Sulfa Allergy Unknown 10/06/16 Yes ///// 06:00 18:00 06:00 18:00 06:00 18:00 Intake Total 2132 ml 1150 ml 888 ml 1814 ml 1766 ml Output Total 950 ml 1600 ml 550 ml 1150 ml 1100 ml Balance 1182 ml -450 ml 338 ml 664 ml 666 ml IV Total 1391 ml 763 ml 548 ml 1107 ml 946 ml Tube Feeding 541 ml 287 ml 220 ml 507 ml 540 ml Other 200 ml 100 ml 120 ml 200 ml 280 ml Output Urine Total 850 ml 1000 ml 550 ml 1150 ml 1100 ml Stool Total 100 ml 600 ml # Bowel Movements 2 9 3 Laboratory Tests Test 11/04/16 11/05/16 11/06/16 11/07/16 21:40 03:25 20:00 01:55 Potassium Level 3.0 MEQ/L 3.4 MEQ/L 2.3 MEQ/L 3.7 MEQ/L White Blood Count 8.6 TH/MM3 Red Blood Count 3.45 MIL/MM3 Hemoglobin 9.8 GM/DL Hematocrit 29.8 % Mean Corpuscular Volume 86.4 FL Mean Corpuscular Hemoglobin 28.6 PG Mean Corpuscular Hemoglobin 33.1 % Concent Red Cell Distribution Width 14.8 % Platelet Count 156 TH/MM3 Mean Platelet Volume 9.1 FL Neutrophils (%) (Auto) 69.2 % Lymphocytes (%) (Auto) 16.5 % Monocytes (%) (Auto) 9.3 % Eosinophils (%) (Auto) 4.4 % Basophils (%) (Auto) 0.6 % Neutrophils # (Auto) 5.9 TH/MM3 Lymphocytes # (Auto) 1.4 TH/MM3 Monocytes # (Auto) 0.8 TH/MM3 Eosinophils # (Auto) 0.4 TH/MM3 Basophils # (Auto) 0.1 TH/MM3 CBC Comment DIFF FINAL Differential Comment Sodium Level 149 MEQ/L 148 MEQ/L Chloride Level 113 MEQ/L 116 MEQ/L Carbon Dioxide Level 28.5 MEQ/L 24.1 MEQ/L Anion Gap 8 MEQ/L 8 MEQ/L Blood Urea Nitrogen 14 MG/DL 9 MG/DL Creatinine 0.70 MG/DL 0.52 MG/DL Estimat Glomerular Filtration 119 ML/MIN 168 ML/MIN Rate Random Glucose 102 MG/DL 100 MG/DL Calcium Level 8.2 MG/DL 6.7 MG/DL Phosphorus Level 3.3 MG/DL Protein Corrected Calcium 7.8 MG/DL Total Protein 5.0 GM/DL Test 11/07/16 04:00 White Blood Count 8.3 TH/MM3 Red Blood Count 3.35 MIL/MM3 Hemoglobin 9.7 GM/DL Hematocrit 29.0 % Mean Corpuscular Volume 86.7 FL Mean Corpuscular Hemoglobin 29.0 PG Mean Corpuscular Hemoglobin 33.4 % Concent Red Cell Distribution Width 15.0 % Platelet Count 150 TH/MM3 Mean Platelet Volume 9.1 FL Neutrophils (%) (Auto) 70.0 % Lymphocytes (%) (Auto) 16.1 % Monocytes (%) (Auto) 8.7 % Eosinophils (%) (Auto) 4.3 % Basophils (%) (Auto) 0.9 % Neutrophils # (Auto) 5.8 TH/MM3 Lymphocytes # (Auto) 1.3 TH/MM3 Monocytes # (Auto) 0.7 TH/MM3 Eosinophils # (Auto) 0.4 TH/MM3 Basophils # (Auto) 0.1 TH/MM3 CBC Comment DIFF FINAL Differential Comment Sodium Level 147 MEQ/L Potassium Level 3.1 MEQ/L Chloride Level 113 MEQ/L Carbon Dioxide Level 27.1 MEQ/L Anion Gap 7 MEQ/L Blood Urea Nitrogen 10 MG/DL Creatinine 0.72 MG/DL Estimat Glomerular Filtration 115 ML/MIN Rate Random Glucose 118 MG/DL Calcium Level 8.3 MG/DL Constitutional Vital Signs Date Time Temp Pulse Resp B/P Pulse Ox O2 Delivery O2 Flow Rate FiO2 11/07/16 08:17 97 T-piece 28 11/07/16 04:00 100 11/07/16 04:00 98.9 100 28 134/83 98 11/07/16 00:00 101 11/07/16 00:00 98.7 101 26 140/70 94 11/06/16 20:40 98 T-piece 6.00 28 11/06/16 20:00 103 11/06/16 20:00 98.7 103 26 151/86 98 11/06/16 20:00 96 T-Piece 28 11/06/16 16:00 98.5 100 22 153/89 95 11/06/16 16:00 100 11/06/16 14:00 96 11/06/16 12:00 98.7 92 22 128/69 94 11/06/16 12:00 92 11/06/16 10:00 102 11/07/16 07:00 Intake Total 2836 ml Output Total 1800 ml Balance 1036 ml (Meir Sánchez) Review of Systems/Exam ROS Unable to obtain ROS due to mental status & being trached. Exam Resp: Respirations CTAB w/o W/R/R but decreased, equal excursion, non-laboured, trached & on T-piece. CV: S1S2 w/regular but fast rate w/o M/G/R, radial & pedal pulses 2+ bilaterally , cap refill < 2 sec. Monitor is sinus tachycardia (101-102) w/o any ectopy noted GI: Abdomen soft, nontender, bowel sounds all quads, PEG tube w/enteral feeds, fecal mgmt system in place. : Paul cath to BSD. Appears to have scrotal & groin fungal infection, skin beefy red in appearance. Neuro: Turns head to sound of practitioner's voice. No eye opening, PERRLA. 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 Did not try to mouth any words. Spontaneous movement of BLE also. (Meir Sánchez) Medications Current Medications Current Medications Medications (Trade) Dose Ordered Sig/Nava Route Start Time Stop Time Status Last Admin (Tylenol) 650 mg Q6H PRN PO 10/05/16 02:45 11/06/16 19:56 (Protonix Inj) 40 mg DAILY IV 10/05/16 09:00 11/07/16 09:44 (Tears Naturale Opth Soln) 1 drop TID EACH EYE 10/05/16 09:00 11/07/16 09:37 (Zofran Inj) 4 mg Q6H PRN IV 10/05/16 02:45 11/06/16 20:58 Miscellaneous Information 1 Q361D XX 10/05/16 02:45 10/05/16 02:45 (Chlorhexidine 2% Cloth) Taper DAILY@04 TOP 10/05/16 04:00 10/01/17 03:59 11/07/16 03:57 Chlorhexidine Gluconate 3 pack 3 pack UNSCH PRN TOP 10/05/16 02:45 (Keppra Inj/NS Inj) 105 ml @ 420 mls/hr Q12HR IV 10/05/16 09:00 11/07/16 09:38 (Pravachol) 40 mg DAILY PO 10/05/16 09:00 11/07/16 09:44 (NS Flush) See Protocol DAILY IV FLUSH 10/07/16 09:00 11/07/16 09:00 (NS Flush) See Protocol UNSCH PRN IV FLUSH 10/06/16 12:00 Sodium Chloride UNSCH PRN IV FLUSH 10/06/16 12:00 11/04/16 20:46 Norepinephrine Bitartrate 4 mg/ Sodium Chloride 254 ml @ 0 mls/hr TITRATE IV 10/06/16 18:00 10/28/16 20:14 (NS 1000 ml Inj) 1,000 ml @ 60 mls/hr [id number] IV 10/21/16 08:30 11/06/16 05:05 (Sodium Chloride) 3 gm Q8HR PO 10/22/16 14:00 11/06/16 20:58 (Florinef) 0.2 mg Q12HR PO 10/22/16 21:00 11/07/16 09:39 Enoxaparin Sodium 40 mg 40 mg Q24H SQ 10/23/16 21:00 11/06/16 19:57 Potassium Phosphate 30 mmol/ Sodium Chloride 260 ml @ 42 mls/hr UNSCH PRN IV 10/24/16 15:15 Potassium Chloride 100 ml @ 50 mls/hr Q2H PRN IV 11/03/16 05:15 11/07/16 06:00 (KCl 20 Meq Premix Inj) 100 ml @ 50 mls/hr Q2H PRN IV 11/03/16 05:15 Potassium Bicarb/ Potassium Chloride 50 meq 50 meq UNSCH PRN PO 11/03/16 05:15 Potassium Chloride 100 ml @ 25 mls/hr UNSCH PRN IV 11/03/16 05:15 11/05/16 04:42 Potassium Chloride 100 ml @ 50 mls/hr Q2H PRN IV 11/03/16 05:15 (Magnesium Sulfate Inj/NS Inj) 100 ml @ 50 mls/hr UNSCH PRN IV 11/03/16 05:15 Magnesium Oxide 800 mg 800 mg UNSCH PRN PO 11/03/16 05:15 (Magnesium Sulfate Inj/NS Inj) 100 ml @ 50 mls/hr UNSCH PRN IV 11/03/16 05:15 Potassium Phosphate 2000 mg 2,000 mg Q4H PRN PO 11/03/16 05:15 (Sodium Phosphate Inj/NS 250 ml Inj) 250 ml @ 42 mls/hr UNSCH PRN IV 11/03/16 05:15 (K-Phos) 2,000 mg UNSCH PRN PO/TUBE 11/03/16 05:15 (Trandate) 100 mg Q8H PO 11/03/16 20:00 11/07/16 03:57 (Apresoline) 50 mg Q12HR PO 11/03/16 19:00 11/07/16 09:39 (Norvasc) 5 mg DAILY PO 11/04/16 09:00 11/07/16 09:39 (Mycostatin Powder) 1 applic TID TOPICAL 11/06/16 09:00 11/07/16 09:40 (Lactinex) 1 tab Q12HR PO 11/06/16 21:00 11/07/16 09:39 (SEROquel) 25 mg BID@09,12 PO 11/07/16 09:00 11/07/16 09:44 (Magic Mouthwash Adult Liq) 5 ml QID SWISH-SWAL 11/06/16 18:00 11/16/16 17:59 11/07/16 09:39 (Colace Liq) 100 mg Q12H PRN G-TUBE 11/06/16 17:00 (Effer-K Eff) 25 meq DAILY PO 11/06/16 17:00 11/09/16 16:59 11/07/16 09:43 (Meir Sánchez) Medical Decision Making MDM Remarks 1. Neurological function slowly improving 2. 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 Left basal ganglia region CVA primarily per CT 4. CSF cultures w/o any growth to date 5. Max temp 98.9 6. Enterobacter cloacae in sputum from 7. Hypokalemia 8. Hypernatremia (Meir Sánchez) Plan Plan Remarks CT brain w/o contrast Cognitive/speech therapy eval & tx Activity OOB to cardiac chair Continue PT & OT Continue abx per [employer] Continue Keppra for probable seizure activity Okay for Lovenox from NSGY standpoint Ulcer prophylaxis Okay to keep SBP between 120-160 mm Hg Okay for patient to be [facility] from NSGY's perspective ( Meir Sánchez) Attending Statement I have personally seen and examined the patient on the date of this note. Pertinent documentation and study results have been reviewed by the undersigned. I have personally developed the treatment plan and performed medical decision making. Agree with findings, exam, and treatment plan as noted above. No change neurologic exam over the past few days Repeat CT scan to assess for hydrocephalus, subdural hygroma (Gino Mace MD ) Meir Sánchez November 07, 2016 10:02 Gino Mace MD November 08, 2016 18:05
--- NOTE | 2016-11-07 11:24 | RADRPT ---
EXAM DATE/TIME: 11/07/2016 10:51 [facility] COMPARISON: US TRANSCRANIAL DOPPLER COMPLETE, October 26, 2016, 8:20. CT BRAIN W/O CONTRAST, October 28, 2016, 5:32. INDICATIONS : Follow up, subarachnoid hemorhage. RADIATION DOSE: 41.15 CTDIvol (mGy) MEDICAL HISTORY : Cardiovascular disease. Hypertension. Pancreatitis. SURGICAL HISTORY : None. ENCOUNTER: Subsequent ACUITY: 2 days PAIN SCALE: Non-responsive LOCATION: cranial TECH NOTE: pt appears to have an aneurysm clip or some type of ferrous metal in head that is not documented in E MR TECHNIQUE: Multiple contiguous axial images were obtained of the head. Using automated exposure control and adj ustment of the mA and/or kV according to patient size, radiation dose was kept as low as reasonably a chievable to obtain optimal diagnostic quality images. FINDINGS: Ventricles have significantly enlarged since the previous CT. Small amount of blood remains evident w ithin the occipital horns. Increasing periventricular hypodensity is noted. Minimal subarachnoid bloo d is again noted in the right sylvian fissure. Focal infarct is again identified in the left thalamus. There are no new areas of infarction. CONCLUSION: Enlarging ventricles with increasing periventricular hypodensity characteristic of developing hydroce phalus. Left thalamic infarct, minimal hemorrhage in the right sylvian fissure and minimal blood in the ventr icles is again noted. No evidence of new infarct or parenchymal hemorrhage. Leonel Alva MD on November 07, 2016 at 11:16 Board Certified Radiologist. This report was verified electronically.
[2016-11-07] MEDS: SODIUM CHLOR 0.9% 1000 ML INJ 1,000 ML IV SCH (16:27)
--- NOTE | 2016-11-07 17:32 | HHI.PR ---
Subjective Remarks The patient was seen in the morning. He is still with diarrhea. Satting well. He is agitated on/of but improved with seroquel. Doesn't answer to all questions , appears in nad. CT head today with hydrocephalus, neurosurgery notified, patient might benefit from shunt placement Objective Vitals Vital Signs Date Time Temp Pulse Resp B/P Pulse Ox O2 Delivery O2 Flow Rate FiO2 11/07/16 16:00 98.7 97 25 137/82 94 11/07/16 16:00 97 11/07/16 12:00 98.7 112 26 136/85 97 11/07/16 12:00 118 11/07/16 08:17 97 T-piece 28 11/07/16 08:00 98.4 107 27 135/90 94 11/07/16 08:00 102 11/07/16 07:00 94 T-Piece 6.00 Humidified 11/07/16 04:00 100 11/07/16 04:00 98.9 100 28 134/83 98 11/07/16 00:00 101 11/07/16 00:00 98.7 101 26 140/70 94 11/06/16 20:40 98 T-piece 6.00 28 11/06/16 20:00 103 11/06/16 20:00 98.7 103 26 151/86 98 11/06/16 20:00 96 T-Piece 28 I/O 11/06/16 11/06/16 11/06/16 11/07/16 11/07/16 11/07/16 07:00 15:00 23:00 07:00 15:00 23:00 Intake Total 744 ml 1070 ml 1007 ml 759 ml 1042 ml Output Total 450 ml 700 ml 750 ml 350 ml 1350 ml Balance 294 ml 370 ml 257 ml 409 ml -308 ml IV Total 422 ml 685 ml 556 ml 390 ml 702 ml Tube Feeding 222 ml 285 ml 291 ml 249 ml 340 ml Other 100 ml 100 ml 160 ml 120 ml Output Urine Total 450 ml 700 ml 750 ml 350 ml 1050 ml Stool Total 300 ml # Bowel Movements 3 6 2 1 Result Diagram: 11/07/16 0400 11/07/16 0400 Imaging Last Impressions Head CT 11/07/16 0000 Signed Impressions: Service Date/Time: Monday, November 07, 2016 10:51 - CONCLUSION: Enlarging ventricles with increasing periventricular hypodensity characteristic of developing hydrocephalus. Left thalamic infarct, minimal hemorrhage in the right sylvian fissure and minimal blood in the ventricles is again noted. No evidence of new infarct or parenchymal hemorrhage. Leonel Alva MD Chest X-Ray 11/01/16 0600 Signed Impressions: Service Date/Time: Tuesday, November 01, 2016 04:37 - CONCLUSION: 1. No acute cardiopulmonary disease. Trevin De León MD Transcranial Doppler Study Complete 10/26/16 0700 Signed Impressions: Service Date/Time: Wednesday, October 26, 2016 08:20 - CONCLUSION: Minimal interval improvement with no evidence for vasospasm. Christian Song MD FACR Neck CTA 10/19/16 0000 Signed Impressions: Service Date/Time: Wednesday, October 19, 2016 14:19 - CONCLUSION: Negative for dissection or significant stenosis. Christian Song MD FACR Head CTA 10/19/16 0000 Signed Impressions: Service Date/Time: Wednesday, October 19, 2016 14:19 - CONCLUSION: 1. Interval development of significant vasospasm in the left MCA and SRI territories. 2. Mild vasospasm in the basilar artery.. Gume Mckeon MD Cerebral Arteriogram 10/19/16 0000 Signed Impressions: Service Date/Time: Wednesday, October 19, 2016 16:06 - CONCLUSION: 1. Vasospasm in the left MCA and SRI territories 2. Spasmolytic infusion, left internal carotid artery as above.. 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 Gume Mckeon MD Pelvis X-Ray 10/05/16 0110 Signed Impressions: Service Date/Time: Wednesday, October 05, 2016 01:22 - CONCLUSION: Unremarkable examination of the pelvis. Ruben Acuña Jr., MD Chest CT 10/05/16 0110 Signed Impressions: Service Date/Time: Wednesday, October 05, 2016 01:46 - CONCLUSION: 1. No acute intrathoracic abnormality. 2. Bibasilar atelectasis. 3. Cardiomegaly. 4. Prior granulomatous disease. Ruben Acuña Jr., MD Cervical Spine CT 10/05/16109 Signed Impressions: Service Date/Time: Wednesday, October 05, 2016 01:40 - CONCLUSION: 1. No fracture or dislocation. 2. Multilevel degenerative changes. Ruben Acuña Jr., MD Abdomen/Pelvis CT 10/05/16109 Signed Impressions: Service Date/Time: Wednesday, October 05, 2016 01:46 - CONCLUSION: 1. No acute trauma. 2. Rounded area of decreased density involving the pancreatic head. I cannot completely exclude pancreatic head mass. At some point MRI of the pancreas is suggested to further evaluate. 3. Focal area of poor enhancement involving the left kidney. This may relate to an area of parenchymal scarring. I cannot completely exclude a mass. This can be further assessed with MRI as well. Ruben Acuña Jr., MD Objective Remarks GENERAL: Middle-aged male lying in bed, s/p trach. Appears agitated/on off, following commands, takes time to answer questions., Appears chronically ill patient. SKIN: Dry. Oral thrush. HEAD: Normocephalic. EYES: Pupils are 2 mm and reactive bilaterally. NECK: Supple, trachea midline. Trach site clean, dry. CARDIOVASCULAR: Regular rate and rhythm. No JVD. RESPIRATORY:On Tp today, Breath sounds equal bilaterally. Clear, no wheezes or crackles. Good bilateral excursions. Comfortable. GASTROINTESTINAL: Abdomen soft, non-tender, nondistended. BS active. No guarding. EXTREMITIES: Nonfocal clubbing cyanosis or edema, well perfused. NEURO: Partial eye opening to sternal rub. Follows commands in bilateral upper and lower extremities. Withdraws to pain A/P Problem List: (1) 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 ICD Code: I60.8 Status: Acute (2) Hypertension ICD Code: I10 Status: Acute (3) Major neurocognitive disorder due to vascular disease, without behavioral disturbance, severe ICD Code: F01.50 Status: Acute Assessment and Plan Assessment: 51yM with aneurysmal SAH, post-bleed day 23, s/p basilar artery coiling 10/05. S/p IA Verapamil 10/15 and 10/19 for cerebral vasospasm. There is some improvement in encephalopathy, acute hypoxic respiratory failure. Resolving sepsis. critically ill. Now in possible cerebral salt wasting. Continue salt tabs, 3% saline, florinef, and NS 150 ml per hour. strict I/Os. TCDs per N/S. s/p Trach 10/23 and PEG 10/24. 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 Thalamic infarct Cerebral Vasospasm Developing Hydrocephalus. neurosurgery evaluating for shunt - Núñez Veliz 5 Lucas grade 3. - Basilar tip coiled. - Nimodipine. Status post intra-arterial verapamil for vasospasm on 10/15, 10/19 - Pravachol - SBP target reduced by Dr. Mace to 120-160. - TCD's per N/S Dr Mace. No recent vasospasm - Neuro exam improving, weakly following commands all 4 ext - Agitated requiring restraints, start seroquel. - CT head 11/07 17 reviewed. Enlarging ventricles with increasing periventricular hypodensity characteristic of developing hydrocephalus. Left thalamic infarct, minimal hemorrhage in the right sylvian fissure and minimal blood in the ventricles is again noted. No evidence of new infarct or parenchymal hemorrhage. Respiratory: Acute Hypoxic and Hypercarbic Respiratory Failure - Intubated for airway protection - s/p trach 10/23 now on CPAP/intermittent TP - Tolerating TP 2-3 hours per day - DuoNeb's as needed for wheezing, start scheduled DuoNeb as well T-piece well tolerated. CV: Septic Shock- resolved. - goal SBP 120-[address] mace - Off Levophed -Resolved Renal: Possible Cerebral Salt Wasting - UO has decreased now to normal range. About 5L in 24 hours - Goal euvolemia - Paul for accurate I/Os Strict I/Os - NaCl tabs 3gm q8h - Florinef 0.2mg q12h - NS @ 120 ml per hour 10/30. DC 3% - strict I/Os q1h - urine studies 10/21 consistent with cerebral salt wasting: at that time was patient intravascularly hypovolemic on clinical exam - NaCl boluses as needed to maintain euvolemia. FEN/GI: Acute Protein Calorie Malnutrition- mild -- vital high protein 40mL/hr. -- daily BMP -- ICU electrolyte protocol. Oral thrush -- Add magic mouth wash Heme/ID: Fever Leukocytosis prior UTI -- s/p full course abx -- 10/20 sputum culture- Enterobacter, some resistance. sensitive to Cefepime. -- 10/20 urine culture- NGTD -- 10/20 CSF: 0 wbc, glu 111, prot 27.8, culture NGTD -- 10/20 Blood cx: NGTD -- 10/21 CSF: NGTD. -- Dr. Mace d/c EVD 10/21 -- d/c d vancomycin and Flagyl. -- Anticipated completion of 10 day course of cefepime 2gm iv q8hr was on 10/29, repeat sputum cx GNR, ID pending. Continue cefepime for now Endocrine: Hyperglycemia of critical illness -- SSI Prophylaxis: - Teds SCDs - Started Lovenox per nsg 10/23/16 - Protonix IV DC plan: Pending improvement, also difficult placement. Hypertension control. Well diuresed. Attempting to rid bacterial bronchitis. Awaiting LTAC approval. Stable respiratory and hemodynamic function. Developing hydrocephalus 11/07/16 , neurosurgery e\valuating for shunt placement. Hold transfering to the med/surg floor yet and DC at this time Discussed with the patient, nurse. Problem Qualifiers (1) Hypertension: Qualified Code: I10 - Essential hypertension Adele Cooper MD November 07, 2016 17:32
[2016-11-07] MEDS: ENOXAPARIN SODIUM 40 MG/0.4 ML SYRINGE SQ SCH (21:33)
[2016-11-07] MEDS: ACETAMINOPHEN 325 MG TAB PO PRN (21:49)
[2016-11-08] VITALS (8 sets, daily range): BP systolic 119–141; BP diastolic 66–94; PULSE 97–120; RESP 10–24; TEMP 97.7–98.8; O2SAT 92–98
[2016-11-08] MEDS ORDERED: diphenhydrAMINE HCL 50 MG/ML VIAL IV PUSH ONE (01:45)
[2016-11-08] MEDS: POTASSIUM CHLOR 40 MEQ PREMIX 100 ML IV PRN (01:55)
[2016-11-08] MEDS: CHLORHEXIDINE GLUCONATE 2 % 1 PACK (2 CLOTHS) TOP SCH (04:00)
[2016-11-08] MEDS: SODIUM CHLORIDE 1 GRAM TAB PO SCH ×3 (04:41→22:14)
[2016-11-08] MEDS: LABETALOL HCL 100 MG TAB PO SCH ×3 (04:41→20:00)
[2016-11-08] MEDS: SODIUM CHLOR 0.9% 1000 ML INJ 1,000 ML IV SCH ×2 (04:42→14:43)
[2016-11-08 04:58] LABS: AUTOMATED NEUTROPHIL # 5.9 TH/MM3 (1.8-7.7); BASOPHIL # 0.1 TH/MM3 (0-0.2); EOSINOPHIL # 0.3 TH/MM3 (0-0.4); EOSINOPHIL % 3.6 % (0.0-4.0); HEMATOCRIT 29.4 % (39.0-51.0); HEMOGLOBIN 9.9 GM/DL (13.0-17.0); LYMPH % 18.6 % (9.0-44.0); LYMPHOCYTE # 1.6 TH/MM3 (1.0-4.8); MEAN CELL VOLUME 86.6 FL (80.0-100.0); MEAN CORPUSCULAR HEMOGLOBIN 29.1 PG (27.0-34.0); MEAN CORPUSCULAR HGB CONC 33.6 % (32.0-36.0); MEAN PLATELET VOLUME 9.4 FL (7.0-11.0); MONO % 8.4 % (0.0-8.0); MONOCYTE # 0.7 TH/MM3 (0-0.9); NEUT % 68.4 % (16.0-70.0); PLATELET COUNT 152 TH/MM3 (150-450); RED BLOOD COUNT 3.39 MIL/MM3 (4.50-5.90); RED CELL DISTRIBUTION WIDTH 15.4 % (11.6-17.2); WHITE BLOOD COUNT 8.7 TH/MM3 (4.0-11.0)
[2016-11-08 05:20] LABS: BICARBONATE 27.1 MEQ/L (21.0-32.0); CALCIUM 8.2 MG/DL (8.5-10.1); CREATININE 0.69 MG/DL (0.60-1.30)
[2016-11-08 07:01] LABS: ACANTHOCYTES OCC (NORMAL); OVALOCYTES 1+ (NORMAL)
[2016-11-08] MEDS: NYSTAT/DIPHENHY/LIDO MOUTHWASH (Adult) 120ML SWISH-SWAL SCH ×4 (09:51→21:06)
[2016-11-08] MEDS: PRAVASTATIN SOD 40 MG TAB PO SCH (09:52)
[2016-11-08] MEDS: amLODIPine BESYLATE 5 MG TAB PO SCH (09:52)
[2016-11-08] MEDS: FLUDROCORTISONE ACETATE 0.1 MG TAB PO SCH ×2 (09:52→21:05)
[2016-11-08] MEDS: PANTOPRAZOLE SODIUM 40 MG VIAL IV SCH (09:52)
[2016-11-08] MEDS: hydrALAZINE HCL 50 MG TAB PO SCH ×2 (09:52→21:05)
[2016-11-08] MEDS: ARTIFICIAL TEARS OPTH SOLN 15 ML BTL EACH EYE SCH ×3 (09:52→17:44)
[2016-11-08] MEDS: SODIUM CHLORIDE 0.9% FLUSH 10 ML FLUSH IV FLUSH SCH (09:52)
[2016-11-08] MEDS: QUEtiapine FUMARATE 25 MG TAB PO SCH ×2 (09:52→12:07)
[2016-11-08] MEDS: LACTOBACILLUS ACIDOPHILUS TAB PO SCH ×2 (09:53→21:00)
[2016-11-08] MEDS: NYSTATIN 100,000 U/GM PWD 15 GM BTL TOPICAL SCH ×3 (09:54→17:44)
[2016-11-08] MEDS: levETIRAcetam INJ 500 MG in SODIUM CHLORIDE 0.9% INJ 100 ML IV SCH ×2 (09:56→21:07)
--- NOTE | 2016-11-08 10:24 | HHI.NSPN ---
(Meir Sánchez BRINE SUPERVISOR) Note Status Status: Progress Note (Meir Sánchez) Interval History Interval History 51 year old male presents with being brought in as a trauma alert due to a head injury with altered mental status and a diminished GCS. The patient was in the bathroom and fell and hit his head. This was an unwitnessed fall. According to the patient's the patient had been unresponsive for approximately 15 minutes by the time ambulance services arrived. When they arrived the patient was noted to be a GCS of 14, however his mentation would wax and wane and go down as low as 3 again. On arrival to the emergency department he felt extremely nauseated. The CT of the head revealed diffuse subarachnoid bleed. Emergently intubated in the trauma bay. Possible seizure activity. Intubated in the emergency room. 10/05/16: Endovascular coiling 10/07/16 rinse intubated and sedated. Ventriculostomy in place 10/09/16: Remains intubated and sedated. Increased agitation with attempts at sedation vacation 10/17/16: Pupils 2 mm. Intubated and sedated. Somewhat more responsive with decreased sedation. External ventricular drain and closed to reservoir again today. 10/19/16: TCD with vasospasm, to angio with 10 mg Verapamil IA given. 10/20/16: Patient with fevers up to 102.8 per Nursing and cultures sent, Nursing reports CSF milky & with sediment. TCD being repeated this afternoon due to vast difference from that done this morning and yesterday. Biological Science Technician Fish increased SBP parameters to 180-200 mm Hg to help overcome vasospasms. No increase in ICP. 10/21/16: Still with elevated temp but not as high. TCD yesterday demonstrated resolution of vasospasms but today it demonstrated a right SRI vasospasm. Patient with facial grimacing and attempted eye opening. CSF specimen sent yesterday w/o any organisms or WBCs seen on Gram stain. 10/23/16: Trach done 10/24/16: PEG done at bedside prior to being seen. Nursing reports prior to sedation he was following commands to all extremities although right was weaker. Mild vasospasm per TCD. 10/25/16: No evident distress. Noted to move BLE & slight LUE spontaneously. Did open eyes partially after having been stimulated. TCD being done. 10/26/16: No evident distress, attempted eye opening to verbal & attempted to follow some commands, some spontaneous movements noted BLE & LUE. TCD being done. 10/27/16: No apparent distress, no eye opening, follows some commands. 10/28/16: Remains tracheed, NAD, follows some commands, spontaneous movement of BLE & LUE noted. 10/29/16: Remains stable follows some commands, spontaneous movement of BLE & LUE noted 10/31/16: Patient trached and on T-piece when seen, follows commands, spontaneous movement of extremities noted. Did attempt to mouth words. 11/01/16: Patient doing well, on T-piece, follows commands, moving both feet spontaneously. Nursing reports he is intermittently following command and mouthing words. 11/02/16: Patient continues to do well, on T-piece, follows some commands, he does turn his head in direction of practitioner's voice. 11/03/16: Patient doing quite well today, on T-piece, follows commands, opens eyes briefly and holds up two fingers on left hand to command and tries with right. 11/04/16: Patient initially seen this morning with Therapy at the bedside. He had his eyes open at the time and would do a hand squeeze to command. When seen later he would not open his eyes but did follow commands and was able to show two fingers with each hand to command. Nursing reported that the patient mouthed that the RUE was not working. 11/05: His mental status is improving, he follows commands 4. He is awaiting transfer to care home care facility. No acute events overnight. 7: slightly restless today, has transfer order out of unit pending. no changes to neuro checks overnight. 8: Patient doing well, follows some simple commands but not consistently 5: Patient remains stable, eyes are open, he nods yes when asked if he has a headache. CTA brain yesterday demonstrates enlarging ventricles with periventricular hypodensity characteristic of developing hydrocephalus. (Meir Sánchez) Labs, Micro, & Vital Signs Results Allergies Coded Allergies Type Severity Reaction Last Updated Verified Penicillin Allergy Unknown 10/06/16 Yes Sulfa Allergy Unknown 10/06/16 Yes Recent Impressions Head CT 11/07/16 0000 Signed Impressions: Service Date/Time: Monday, November 07, 2016 10:51 - CONCLUSION: Enlarging ventricles with increasing periventricular hypodensity characteristic of developing hydrocephalus. Left thalamic infarct, minimal hemorrhage in the right sylvian fissure and minimal blood in the ventricles is again noted. No evidence of new infarct or parenchymal hemorrhage. Leonel Alva MD /////175// 06:00 18:00 06:00 18:00 06:00 18:00 Intake Total 888 ml 1814 ml 1766 ml 1042 ml 1426 ml Output Total 550 ml 1150 ml 1100 ml 1350 ml 1125 ml Balance 338 ml 664 ml 666 ml -308 ml 301 ml IV Total 548 ml 1107 ml 946 ml 702 ml 790 ml Tube Feeding 220 ml 507 ml 540 ml 340 ml 416 ml Other 120 ml 200 ml 280 ml 220 ml Output Urine Total 550 ml 1150 ml 1100 ml 1050 ml 725 ml Stool Total 300 ml 400 ml # Bowel Movements 2 9 3 Laboratory Tests Test 11/06/16 11/07/16 11/07/16 11/07/16 20:00 01:55 04:00 20:45 Sodium Level 148 MEQ/L 147 MEQ/L Potassium Level 2.3 MEQ/L 3.7 MEQ/L 3.1 MEQ/L 3.2 MEQ/L Chloride Level 116 MEQ/L 113 MEQ/L Carbon Dioxide Level 24.1 MEQ/L 27.1 MEQ/L Anion Gap 8 MEQ/L 7 MEQ/L Blood Urea Nitrogen 9 MG/DL 10 MG/DL Creatinine 0.52 MG/DL 0.72 MG/DL Estimat Glomerular Filtration 168 ML/MIN 115 ML/MIN Rate Random Glucose 100 MG/DL 118 MG/DL Calcium Level 6.7 MG/DL 8.3 MG/DL Protein Corrected Calcium 7.8 MG/DL Total Protein 5.0 GM/DL White Blood Count 8.3 TH/MM3 Red Blood Count 3.35 MIL/MM3 Hemoglobin 9.7 GM/DL Hematocrit 29.0 % Mean Corpuscular Volume 86.7 FL Mean Corpuscular Hemoglobin 29.0 PG Mean Corpuscular Hemoglobin 33.4 % Concent Red Cell Distribution Width 15.0 % Platelet Count 150 TH/MM3 Mean Platelet Volume 9.1 FL Neutrophils (%) (Auto) 70.0 % Lymphocytes (%) (Auto) 16.1 % Monocytes (%) (Auto) 8.7 % Eosinophils (%) (Auto) 4.3 % Basophils (%) (Auto) 0.9 % Neutrophils # (Auto) 5.8 TH/MM3 Lymphocytes # (Auto) 1.3 TH/MM3 Monocytes # (Auto) 0.7 TH/MM3 Eosinophils # (Auto) 0.4 TH/MM3 Basophils # (Auto) 0.1 TH/MM3 CBC Comment DIFF FINAL Differential Comment Test 11/08/16 04:45 White Blood Count 8.7 TH/MM3 Red Blood Count 3.39 MIL/MM3 Hemoglobin 9.9 GM/DL Hematocrit 29.4 % Mean Corpuscular Volume 86.6 FL Mean Corpuscular Hemoglobin 29.1 PG Mean Corpuscular Hemoglobin 33.6 % Concent Red Cell Distribution Width 15.4 % Platelet Count 152 TH/MM3 Mean Platelet Volume 9.4 FL Neutrophils (%) (Auto) 68.4 % Lymphocytes (%) (Auto) 18.6 % Monocytes (%) (Auto) 8.4 % Eosinophils (%) (Auto) 3.6 % Basophils (%) (Auto) 1.0 % Neutrophils # (Auto) 5.9 TH/MM3 Lymphocytes # (Auto) 1.6 TH/MM3 Monocytes # (Auto) 0.7 TH/MM3 Eosinophils # (Auto) 0.3 TH/MM3 Basophils # (Auto) 0.1 TH/MM3 CBC Comment AUTO DIFF Differential Comment AUTO DIFF CONFIRMED Ovalocytes 1+ Acanthocytes OCC Sodium Level 148 MEQ/L Potassium Level 3.7 MEQ/L Chloride Level 114 MEQ/L Carbon Dioxide Level 27.1 MEQ/L Anion Gap 7 MEQ/L Blood Urea Nitrogen 10 MG/DL Creatinine 0.69 MG/DL Estimat Glomerular Filtration 121 ML/MIN Rate Random Glucose 100 MG/DL Calcium Level 8.2 MG/DL Phosphorus Level 3.0 MG/DL Magnesium Level 2.0 MG/DL Constitutional Vital Signs Date Time Temp Pulse Resp B/P Pulse Ox O2 Delivery O2 Flow Rate FiO2 11/08/16 08:09 94 T-piece 28 11/08/16 04:00 98.8 98 10 121/66 97 11/08/16 04:00 101 11/08/16 00:00 98.6 110 17 141/75 95 11/08/16 00:00 110 11/07/16 20:00 94 T-Piece 28 11/07/16 20:00 107 11/07/16 20:00 99.2 108 23 139/88 93 11/07/16 19:04 95 T-piece 5.00 28 11/07/16 16:00 98.7 97 25 137/82 94 11/07/16 16:00 97 11/07/16 12:00 98.7 112 26 136/85 97 11/07/16 12:00 118 11/08/16 07:00 Intake Total 2468 ml Output Total 2475 ml Balance -7 ml (Meir Sánchez) Review of Systems/Exam ROS Unable to obtain ROS due to being trached. He does nod yes when asked if he has a headache. Exam Resp: Slightly coarse & decreased breath sounds, equal excursion, non-laboured, trached & on T-piece. CV: S1S2 w/regular but fast rate w/o M/G/R, radial & pedal pulses 2+ bilaterally , cap refill < 2 sec. Monitor is sinus rhythm to sinus tachycardia w/o any ectopy noted GI: Abdomen soft, nontender, bowel sounds all quads, PEG tube w/enteral feeds, fecal mgmt system in place. : Paul cath to BSD. Appears to have scrotal & groin fungal infection, skin beefy red in appearance. Neuro: Patient awake with eyes open. PERRLA. 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 Did not try to mouth any words. (Meir Sánchez) Medications Current Medications Current Medications Medications (Trade) Dose Ordered Sig/Nava Route Start Time Stop Time Status Last Admin (Tylenol) 650 mg Q6H PRN PO 10/05/16 02:45 11/07/16 21:49 (Protonix Inj) 40 mg DAILY IV 10/05/16 09:00 11/08/16 09:52 (Tears Naturale Opth Soln) 1 drop TID EACH EYE 10/05/16 09:00 11/08/16 09:52 (Zofran Inj) 4 mg Q6H PRN IV 10/05/16 02:45 11/06/16 20:58 Miscellaneous Information 1 [id number] XX 10/05/16 02:45 10/05/16 02:45 (Chlorhexidine 2% Cloth) Taper DAILY@04 TOP 10/05/16 04:00 10/01/17 03:59 11/07/16 03:57 Chlorhexidine Gluconate 3 pack 3 pack UNSCH PRN TOP 10/05/16 02:45 (Keppra Inj/NS Inj) 105 ml @ 420 mls/hr Q12HR IV 10/05/16 09:00 11/08/16 09:56 (Pravachol) 40 mg DAILY PO 10/05/16 09:00 11/08/16 09:52 (NS Flush) See Protocol DAILY IV FLUSH 10/07/16 09:00 11/08/16 09:52 (NS Flush) See Protocol UNSCH PRN IV FLUSH 10/06/16 12:00 Sodium Chloride UNSCH PRN IV FLUSH 10/06/16 12:00 11/04/16 20:46 Norepinephrine Bitartrate 4 mg/ Sodium Chloride 254 ml @ 0 mls/hr TITRATE IV 10/06/16 18:00 10/28/16 20:14 (NS 1000 ml Inj) 1,000 ml @ 60 mls/hr [id number] IV 10/21/16 08:30 11/08/16 04:42 (Sodium Chloride) 3 gm Q8HR PO 10/22/16 14:00 11/08/16 04:41 (Florinef) 0.2 mg Q12HR PO 10/22/16 21:00 11/08/16 09:52 Enoxaparin Sodium 40 mg 40 mg Q24H SQ 10/23/16 21:00 Future Hold 11/07/16 21:33 Potassium Phosphate 30 mmol/ Sodium Chloride 260 ml @ 42 mls/hr UNSCH PRN IV 10/24/16 15:15 Potassium Chloride 100 ml @ 50 mls/hr Q2H PRN IV 11/03/16 05:15 11/08/16 01:55 (KCl 20 Meq Premix Inj) 100 ml @ 50 mls/hr Q2H PRN IV 11/03/16 05:15 Potassium Bicarb/ Potassium Chloride 50 meq 50 meq UNSCH PRN PO 11/03/16 05:15 Potassium Chloride 100 ml @ 25 mls/hr UNSCH PRN IV 11/03/16 05:15 11/05/16 04:42 Potassium Chloride 100 ml @ 50 mls/hr Q2H PRN IV 11/03/16 05:15 (Magnesium Sulfate Inj/NS Inj) 100 ml @ 50 mls/hr UNSCH PRN IV 11/03/16 05:15 Magnesium Oxide 800 mg 800 mg UNSCH PRN PO 11/03/16 05:15 (Magnesium Sulfate Inj/NS Inj) 100 ml @ 50 mls/hr UNSCH PRN IV 11/03/16 05:15 Potassium Phosphate 2000 mg 2,000 mg Q4H PRN PO 11/03/16 05:15 (Sodium Phosphate Inj/NS 250 ml Inj) 250 ml @ 42 mls/hr UNSCH PRN IV 11/03/16 05:15 (K-Phos) 2,000 mg UNSCH PRN PO/TUBE 11/03/16 05:15 (Trandate) 100 mg Q8H PO 11/03/16 20:00 11/08/16 04:41 (Apresoline) 50 mg Q12HR PO 11/03/16 19:00 11/08/16 09:52 (Norvasc) 5 mg DAILY PO 11/04/16 09:00 11/08/16 09:52 (Mycostatin Powder) 1 applic TID TOPICAL 11/06/16 09:00 11/08/16 09:54 (Lactinex) 1 tab Q12HR PO 11/06/16 21:00 11/08/16 09:53 (SEROquel) 25 mg BID@09,12 PO 11/07/16 09:00 11/08/16 09:52 (Magic Mouthwash Adult Liq) 5 ml QID SWISH-SWAL 11/06/16 18:00 11/16/16 17:59 11/08/16 09:51 (Colace Liq) 100 mg Q12H PRN G-TUBE 11/06/16 17:00 (Effer-K Eff) 25 meq DAILY PO 11/06/16 17:00 11/09/16 16:59 11/07/16 09:43 (Mier Sánchez) Medical Decision Making MDM Remarks 1. Neurological function stable 2. 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 Left basal ganglia region CVA primarily per CT 4. CSF cultures w/o any growth 5. Max temp 99.2 6. Enterobacter cloacae in sputum from 7. Hypokalemia 8. Hypernatremia 9. Hydrocephalus (Meir Sánchez) Plan Plan Remarks Plan to take patient to OR on 11/10 for [facility]OR HOME shunt Cognitive/speech therapy eval & tx Activity OOB to cardiac chair Continue PT & OT Continue abx per Surgical Biological Science Technician Fish Continue Keppra for probable seizure activity Okay for Lovenox from NSGY standpoint but will hold after 11/09 evening dose Ulcer prophylaxis Okay to keep SBP between 120-160 mm Hg Will hold [facility], most likely will need to be in hospital for an additional 2 days post-op (Meir Sánchez) Attending Statement I have personally seen and examined the patient on the date of this note. Pertinent documentation and study results have been reviewed by the undersigned. I have personally developed the treatment plan and performed medical decision making. Agree with findings, exam, and treatment plan as noted above. He opens his eyes spontaneous Tracts a little with his eyes Moves all extremities to command Does not try to verbalize CT scan head with moderate progressive ventriculomegaly. It is felt that the patient would benefit from ventriculoperitoneal shunt placement to prevent progressive hydrocephalus which is apparent on his serial CT scans. (Gino Mace MD) Meir Sánchez November 08, 2016 10:24 Gino Mace MD November 08, 2016 18:07
--- NOTE | 2016-11-08 11:49 | HHI.PR ---
Subjective Remarks Seen earlier today. Patient is more awake and alert today. Seroquel is helping. Patient denies any pain at this time. Feels tired. Poor historian and poor interaction.Still with diarrhea. Plan for shunt on per neurosurgery Patient is noted with rash on his upper and lower extremities, itchy, raised borders, serpentiform, poss abx reaction vs parasite infx Objective Vitals Vital Signs Date Time Temp Pulse Resp B/P Pulse Ox O2 Delivery O2 Flow Rate FiO2 11/08/16 08:09 94 T-piece 28 11/08/16 04:00 98.8 98 10 121/66 97 11/08/16 04:00 101 11/08/16 00:00 98.6 110 17 141/75 95 11/08/16 00:00 110 11/07/16 20:00 94 T-Piece 28 11/07/16 20:00 107 11/07/16 20:00 99.2 108 23 139/88 93 11/07/16 19:04 95 T-piece 5.00 28 11/07/16 16:00 98.7 97 25 137/82 94 11/07/16 16:00 97 11/07/16 12:00 98.7 112 26 136/85 97 11/07/16 12:00 118 I/O 11/07/16 11/07/16 11/07/16 11/08/16 11/08/16 11/08/16 07:00 15:00 23:00 07:00 15:00 23:00 Intake Total 759 ml 1042 ml 632 ml 794 ml Output Total 350 ml 1350 ml 550 ml 575 ml Balance 409 ml -308 ml 82 ml 219 ml IV Total 390 ml 702 ml 382 ml 408 ml Tube Feeding 249 ml 340 ml 150 ml 266 ml Other 120 ml 100 ml 120 ml Output Urine Total 350 ml 1050 ml 350 ml 375 ml Stool Total 300 ml 200 ml 200 ml # Bowel Movements 1 Result Diagram: 11/08/16 0445 11/08/16 0445 Imaging Last Impressions Head CT 11/07/16 0000 Signed Impressions: Service Date/Time: Monday, November 07, 2016 10:51 - CONCLUSION: Enlarging ventricles with increasing periventricular hypodensity characteristic of developing hydrocephalus. Left thalamic infarct, minimal hemorrhage in the right sylvian fissure and minimal blood in the ventricles is again noted. No evidence of new infarct or parenchymal hemorrhage. Leonel Alva MD Chest X-Ray 11/01/16 0600 Signed Impressions: Service Date/Time: Tuesday, November 01, 2016 04:37 - CONCLUSION: 1. No acute cardiopulmonary disease. Trevin De León MD Transcranial Doppler Study Complete 10/26/16 0700 Signed Impressions: Service Date/Time: Wednesday, October 26, 2016 08:20 - CONCLUSION: Minimal interval improvement with no evidence for vasospasm. Christian Song MD FACR Neck CTA 10/19/16 0000 Signed Impressions: Service Date/Time: Wednesday, October 19, 2016 14:19 - CONCLUSION: Negative for dissection or significant stenosis. Christian Song MD FACR Head CTA 10/19/16 0000 Signed Impressions: Service Date/Time: Wednesday, October 19, 2016 14:19 - CONCLUSION: 1. Interval development of significant vasospasm in the left MCA and SRI territories. 2. Mild vasospasm in the basilar artery.. Gume Mckeon MD Cerebral Arteriogram 10/19/16 0000 Signed Impressions: Service Date/Time: Wednesday, October 19, 2016 16:06 - CONCLUSION: 1. Vasospasm in the left MCA and SRI territories 2. Spasmolytic infusion, left internal carotid artery as above.. 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 Gume Mckeon MD Pelvis X-Ray 10/05/16109 Signed Impressions: Service Date/Time: Wednesday, October 05, 2016 01:22 - CONCLUSION: Unremarkable examination of the pelvis. Ruben Acuña Jr., MD Chest CT 10/05/16109 Signed Impressions: Service Date/Time: Wednesday, October 05, 2016 01:46 - CONCLUSION: 1. No acute intrathoracic abnormality. 2. Bibasilar atelectasis. 3. Cardiomegaly. 4. Prior granulomatous disease. Ruben Acuña Jr., MD Cervical Spine CT 10/05/16109 Signed Impressions: Service Date/Time: Wednesday, October 05, 2016 01:40 - CONCLUSION: 1. No fracture or dislocation. 2. Multilevel degenerative changes. Ruben Acuña Jr., MD Abdomen/Pelvis CT 10/05/16 0110 Signed Impressions: Service Date/Time: Wednesday, October 05, 2016 01:46 - CONCLUSION: 1. No acute trauma. 2. Rounded area of decreased density involving the pancreatic head. I cannot completely exclude pancreatic head mass. At some point MRI of the pancreas is suggested to further evaluate. 3. Focal area of poor enhancement involving the left kidney. This may relate to an area of parenchymal scarring. I cannot completely exclude a mass. This can be further assessed with MRI as well. Ruben Acuña Jr., MD Objective Remarks GENERAL: Middle-aged male lying in bed, s/p trach. Appears agitated/on off, following commands, takes time to answer questions., Appears chronically ill patient. SKIN: Dry. Oral thrush. Noted rash on LE and upper extremities, with red borders , serpentiforn rash, raised and red borders. HEAD: Normocephalic. EYES: Pupils are 2 mm and reactive bilaterally. NECK: Supple, trachea midline. Trach site clean, dry. CARDIOVASCULAR: Regular rate and rhythm. No JVD. RESPIRATORY:On Tp today, Breath sounds equal bilaterally. Clear, no wheezes or crackles. Good bilateral excursions. Comfortable. GASTROINTESTINAL: Abdomen soft, non-tender, nondistended. BS active. No guarding. EXTREMITIES: Nonfocal clubbing cyanosis or edema, well perfused. NEURO: Partial eye opening to sternal rub. Follows commands in bilateral upper and lower extremities. Withdraws to pain A/P Problem List: (1) 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 ICD Code: I60.8 Status: Acute (2) Hypertension ICD Code: I10 Status: Acute (3) Major neurocognitive disorder due to vascular disease, without behavioral disturbance, severe ICD Code: F01.50 Status: Acute Assessment and Plan Assessment: 51yM with aneurysmal SAH, post-bleed day 23, s/p basilar artery coiling 10/05. S/p IA Verapamil 10/15 and 10/19 for cerebral vasospasm. There is some improvement in encephalopathy, acute hypoxic respiratory failure. Resolving sepsis. critically ill. Now in possible cerebral salt wasting. Continue salt tabs, 3% saline, florinef, and NS 150 ml per hour. strict I/Os. TCDs per N/S. s/p Trach 10/23 and PEG 10/24. 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 Thalamic infarct Cerebral Vasospasm Developing Hydrocephalus. Neurosurgery plans for shunt 11/10/16 - Núñez Veliz 5 Lucas grade 3. - Basilar tip coiled. - Nimodipine. Status post intra-arterial verapamil for vasospasm on 10/15, 10/19 - Pravachol - SBP target reduced by Dr. Mace to 120-160. - TCD's per N/S Dr Mace. No recent vasospasm - Neuro exam improving, weakly following commands all 4 ext - Agitated requiring restraints, start seroquel. - CT head 11/07 16 reviewed. Enlarging ventricles with increasing periventricular hypodensity characteristic of developing hydrocephalus. Left thalamic infarct, minimal hemorrhage in the right sylvian fissure and minimal blood in the ventricles is again noted. No evidence of new infarct or parenchymal hemorrhage. Respiratory: Acute Hypoxic and Hypercarbic Respiratory Failure - Intubated for airway protection - s/p trach 10/23 now on CPAP/intermittent TP - Tolerating TP 2-3 hours per day - DuoNeb's as needed for wheezing, start scheduled DuoNeb as well T-piece well tolerated. CV: Septic Shock- resolved. - goal SBP 120-[address] mace - Off Levophed -Resolved Renal: Possible Cerebral Salt Wasting - UO has decreased now to normal range. - Goal euvolemia - Paul for accurate I/Os Strict I/Os - NaCl tabs 3gm q8h - Florinef 0.2mg q12h - NS @ 120 ml per hour 10/30. DC 3% - strict I/Os q1h - urine studies 10/21 consistent with cerebral salt wasting: at that time was patient intravascularly hypovolemic on clinical exam - NaCl boluses as needed to maintain euvolemia. FEN/GI: Acute Protein Calorie Malnutrition- mild -- vital high protein 40mL/hr. -- daily BMP -- ICU electrolyte protocol. Oral thrush -- Add magic mouth wash Heme/ID: Sepsis ( tachy, leukocytosis,, fevers, poss PNA, UTI) Fever, Leukocytosis. Prior UTI. Pneumonia -- s/p full course abx -- 10/20 sputum culture- Enterobacter, some resistance. sensitive to Cefepime. -- 10/20 urine culture- NGTD -- 10/20 CSF: 0 wbc, glu 111, prot 27.8, culture NGTD -- 10/20 Blood cx: NGTD -- 10/21 CSF: NGTD. -- Dr. Mace d/c EVD 10/21 -- d/c d vancomycin and Flagyl. -- Anticipated completion of 10 day course of cefepime 2gm iv q8hr was on 10/29, repeat sputum cx GNR, ID pending. Continue cefepime for now -- Skin rash poss related to antibiotics vs parasite va fungal . Consult ID for further evaluation and treatment indications. Endocrine: Hyperglycemia of critical illness -- SSI Prophylaxis: - Teds SCDs - Started Lovenox per nsg 10/23/16 - Protonix IV DC plan: Pending improvement, also difficult placement. Hypertension control. Well diuresed. Attempting to rid bacterial bronchitis. Awaiting LTAC approval. Stable respiratory and hemodynamic function. Developing hydrocephalus 11/07/16 , neurosurgery evaluating for shunt placement, plan for shunt on 11/10/16 . Hold transferring to the med/surg floor yet and DC at this time Discussed with the patient, nurse. Problem Qualifiers (1) Hypertension: Qualified Code: I10 - Essential hypertension Adele Cooper MD November 08, 2016 11:49
[2016-11-08] MEDS: POTASSIUM BICARBONATE 25 MEQ EFFERVESCENT TAB PO SCH (14:44)
--- NOTE | 2016-11-08 14:59 | PD.ID.CON ---
History of Present Illness Service ID Consult Requested By Reason for Consult Evaluation and Mment of Rash ? drug rash ? antibiotic induced. Primary Care Physician Unknown Diagnoses: History of Present Illness is a 51 y/o CM who being brought in as a trauma alert due to a head injury with altered mental status and a diminished GCS. The patient was in the bathroom and fell and hit his head. This was an unwitnessed fall. According to the patient's the patient had been unresponsive for approximately 15 minutes by the time ambulance services arrived. When they arrived the patient was noted to be a GCS of 14, however his mentation would wax and wane and go down as low as 3 again. On arrival to the emergency department he felt extremely nauseated. The CT of the head revealed diffuse subarachnoid bleed. On October 05 patient underwent ventriculostomy placement for subarachnoid hemorrhage secondary to basilar tip aneurysm. On October 25 patient underwent a tracheostomy placement On October 26 patient underwent placement of a PEG tube It appears that patient has gradually improved neurologically but there has been concern more recently in the CT showed increasing hydrocephalus and there is a plan for further neurosurgical intervention. Infectious disease is consulted for evaluation and management of a rash which is thought to be needed drug rash or antibiotic induced rash. Upon careful review of the medication administration records the only drugs I found that can be implicated in the rash are Keppra. Patient is currently not on any antibiotics and cefepime has been discontinued on October 29, 2016. Review of Systems ROS Limitations: Altered Mental Status Past Family Social History Allergies: Coded Allergies: Penicillin (Verified Allergy, Unknown, 10/06/16) Sulfa (Verified Allergy, Unknown, 10/06/16) Past Medical History Per the family, no cardiac, pulmonary, gastrointestinal disease, diabetes,. Positive Hypertension Previous CVA Past Surgical History No previous surgeries Reported Medications None Active Ordered Medications Current Medications Medications (Trade) Dose Ordered Sig/Nava Route Start Time Stop Time Status Last Admin (Tylenol) 650 mg Q6H PRN PO 10/05/16 02:45 11/07/16 21:49 (Protonix Inj) 40 mg DAILY IV 10/05/16 09:00 11/08/16 09:52 (Tears Naturale Opth Soln) 1 drop TID EACH EYE 10/05/16 09:00 11/08/16 12:08 (Zofran Inj) 4 mg Q6H PRN IV 10/05/16 02:45 11/06/16 20:58 Miscellaneous Information 1 Q361D XX 10/05/16 02:45 10/05/16 02:45 (Chlorhexidine 2% Cloth) Taper DAILY@04 TOP 10/05/16 04:00 10/01/17 03:59 11/07/16 03:57 Chlorhexidine Gluconate 3 pack 3 pack UNSCH PRN TOP 10/05/16 02:45 (Keppra Inj/NS Inj) 105 ml @ 420 mls/hr Q12HR IV 10/05/16 09:00 11/08/16 09:56 (Pravachol) 40 mg DAILY PO 10/05/16 09:00 11/08/16 09:52 (NS Flush) See Protocol DAILY IV FLUSH 10/07/16 09:00 11/08/16 09:52 (NS Flush) See Protocol UNSCH PRN IV FLUSH 10/06/16 12:00 Sodium Chloride UNSCH PRN IV FLUSH 10/06/16 12:00 11/04/16 20:46 Norepinephrine Bitartrate 4 mg/ Sodium Chloride 254 ml @ 0 mls/hr TITRATE IV 10/06/16 18:00 10/28/16 20:14 (NS 1000 ml Inj) 1,000 ml @ 60 mls/hr [id number] IV 10/21/16 08:30 11/08/16 14:43 (Sodium Chloride) 3 gm Q8HR PO 10/22/16 14:00 11/08/16 14:43 (Florinef) 0.2 mg Q12HR PO 10/22/16 21:00 11/08/16 09:52 Enoxaparin Sodium 40 mg 40 mg Q24H SQ 10/23/16 21:00 Future Hold 11/07/16 21:33 Potassium Phosphate 30 mmol/ Sodium Chloride 260 ml @ 42 mls/hr UNSCH PRN IV 10/24/16 15:15 Potassium Chloride 100 ml @ 50 mls/hr Q2H PRN IV 11/03/16 05:15 11/08/16 01:55 (KCl 20 Meq Premix Inj) 100 ml @ 50 mls/hr Q2H PRN IV 11/03/16 05:15 Potassium Bicarb/ Potassium Chloride 50 meq 50 meq UNSCH PRN PO 11/03/16 05:15 Potassium Chloride 100 ml @ 25 mls/hr UNSCH PRN IV 11/03/16 05:15 11/05/16 04:42 Potassium Chloride 100 ml @ 50 mls/hr Q2H PRN IV 11/03/16 05:15 (Magnesium Sulfate Inj/NS Inj) 100 ml @ 50 mls/hr UNSCH PRN IV 11/03/16 05:15 Magnesium Oxide 800 mg 800 mg UNSCH PRN PO 11/03/16 05:15 (Magnesium Sulfate Inj/NS Inj) 100 ml @ 50 mls/hr UNSCH PRN IV 11/03/16 05:15 Potassium Phosphate 2000 mg 2,000 mg Q4H PRN PO 11/03/16 05:15 (Sodium Phosphate Inj/NS 250 ml Inj) 250 ml @ 42 mls/hr UNSCH PRN IV 11/03/16 05:15 (K-Phos) 2,000 mg UNSCH PRN PO/TUBE 11/03/16 05:15 (Trandate) 100 mg Q8H PO 11/03/16 20:00 11/08/16 12:07 (Apresoline) 50 mg Q12HR PO 11/03/16 19:00 11/08/16 09:52 (Norvasc) 5 mg DAILY PO 11/04/16 09:00 11/08/16 09:52 (Mycostatin Powder) 1 applic TID TOPICAL 11/06/16 09:00 11/08/16 12:08 (Lactinex) 1 tab Q12HR PO 11/06/16 21:00 11/08/16 09:53 (SEROquel) 25 mg BID@09,12 PO 11/07/16 09:00 11/08/16 12:07 (Magic Mouthwash Adult Liq) 5 ml QID SWISH-SWAL 11/06/16 18:00 11/16/16 17:59 11/08/16 12:07 (Colace Liq) 100 mg Q12H PRN G-TUBE 11/06/16 17:00 (Effer-K Eff) 25 meq DAILY PO 11/06/16 17:00 11/09/16 16:59 11/08/16 14:44 Family History Negative cardiac disease, cancer, neurologic disease, aneurysms. Social History No cigarettes or significant alcohol for approximately 20 years. Physical Exam Vital Signs Vital Signs Date Time Temp Pulse Resp B/P Pulse Ox O2 Delivery O2 Flow Rate FiO2 11/08/16 08:09 94 T-piece 28 11/08/16 04:00 98.8 98 10 121/66 97 11/08/16 04:00 101 11/08/16 00:00 98.6 110 17 141/75 95 11/08/16 00:00 110 11/07/16 20:00 94 T-Piece 28 11/07/16 20:00 107 11/07/16 20:00 99.2 108 23 139/88 93 11/07/16 19:04 95 T-piece 5.00 28 11/07/16 16:00 98.7 97 25 137/82 94 11/07/16 16:00 97 Physical Exam GENERAL: This is a well-nourished, well-developed patient, in no apparent distress. SKIN: Very faint rash on the upper extremities appears to be fading. HEAD: Atraumatic. Normocephalic. No temporal or scalp tenderness. EYES: Pupils equal round and reactive. Extraocular motions intact. No scleral icterus. No injection or drainage. ENT: Nose without bleeding, purulent drainage or septal hematoma. Throat without erythema, tonsillar hypertrophy or exudate. Uvula midline. Airway patent. NECK: Trachea midline. Supple, nontender, no meningeal signs. CARDIOVASCULAR: RRR RESPIRATORY: Clear to auscultation. Breath sounds equal bilaterally. No wheezes , rales, or rhonchi. GASTROINTESTINAL: Abdomen soft, non-tender, nondistended. No hepato-splenomegaly , or palpable masses. No guarding. MUSCULOSKELETAL: Extremities without clubbing, cyanosis, or edema. NEUROLOGICAL: Awake and alert. Grossly non focal Psych: cooperative IV line sites with no e.o infection. Laboratory Laboratory Tests Test 11/07/16 11/08/16 20:45 04:45 Potassium Level 3.2 3.7 White Blood Count 8.7 Red Blood Count 3.39 Hemoglobin 9.9 Hematocrit 29.4 Mean Corpuscular Volume 86.6 Mean Corpuscular Hemoglobin 29.1 Mean Corpuscular Hemoglobin 33.6 Concent Red Cell Distribution Width 15.4 Platelet Count 152 Mean Platelet Volume 9.4 Neutrophils (%) (Auto) 68.4 Lymphocytes (%) (Auto) 18.6 Monocytes (%) (Auto) 8.4 Eosinophils (%) (Auto) 3.6 Basophils (%) (Auto) 1.0 Neutrophils # (Auto) 5.9 Lymphocytes # (Auto) 1.6 Monocytes # (Auto) 0.7 Eosinophils # (Auto) 0.3 Basophils # (Auto) 0.1 CBC Comment AUTO DIFF Differential Comment AUTO DIFF CONFIRMED Ovalocytes 1+ Acanthocytes OCC Sodium Level 148 Chloride Level 114 Carbon Dioxide Level 27.1 Anion Gap 7 Blood Urea Nitrogen 10 Creatinine 0.69 Estimat Glomerular Filtration 121 Rate Random Glucose 100 Calcium Level 8.2 Phosphorus Level 3.0 Magnesium Level 2.0 Result Diagram: 11/08/16 0445 11/08/16 0445 Imaging Last Impressions Head CT 11/07/16 0000 Signed Impressions: Service Date/Time: Monday, November 07, 2016 10:51 - CONCLUSION: Enlarging ventricles with increasing periventricular hypodensity characteristic of developing hydrocephalus. Left thalamic infarct, minimal hemorrhage in the right sylvian fissure and minimal blood in the ventricles is again noted. No evidence of new infarct or parenchymal hemorrhage. Leonel Alva MD Chest X-Ray 11/01/16 0600 Signed Impressions: Service Date/Time: Tuesday, November 01, 2016 04:37 - CONCLUSION: 1. No acute cardiopulmonary disease. Trevin De León MD Transcranial Doppler Study Complete 10/26/16 0700 Signed Impressions: Service Date/Time: Wednesday, October 26, 2016 08:20 - CONCLUSION: Minimal interval improvement with no evidence for vasospasm. Christian Song MD FACR Neck CTA 10/19/16 0000 Signed Impressions: Service Date/Time: Wednesday, October 19, 2016 14:19 - CONCLUSION: Negative for dissection or significant stenosis. Christian Song MD FACR Head CTA 10/19/16 0000 Signed Impressions: Service Date/Time: Wednesday, October 19, 2016 14:19 - CONCLUSION: 1. Interval development of significant vasospasm in the left MCA and SRI territories. 2. Mild vasospasm in the basilar artery.. Gume Mckeon MD Cerebral Arteriogram 10/19/16 0000 Signed Impressions: Service Date/Time: Wednesday, October 19, 2016 16:06 - CONCLUSION: 1. Vasospasm in the left MCA and SRI territories 2. Spasmolytic infusion, left internal carotid artery as above.. 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 Gume Mckeon MD Pelvis X-Ray 10/05/16109 Signed Impressions: Service Date/Time: Wednesday, October 05, 2016 01:22 - CONCLUSION: Unremarkable examination of the pelvis. Ruben Acuña Jr., MD Chest CT 10/05/16109 Signed Impressions: Service Date/Time: Wednesday, October 05, 2016 01:46 - CONCLUSION: 1. No acute intrathoracic abnormality. 2. Bibasilar atelectasis. 3. Cardiomegaly. 4. Prior granulomatous disease. Ruben Acuña Jr., MD Cervical Spine CT 10/05/16109 Signed Impressions: Service Date/Time: Wednesday, October 05, 2016 01:40 - CONCLUSION: 1. No fracture or dislocation. 2. Multilevel degenerative changes. Ruben Acuña Jr., MD Abdomen/Pelvis CT 10/05/16109 Signed Impressions: Service Date/Time: Wednesday, October 05, 2016 01:46 - CONCLUSION: 1. No acute trauma. 2. Rounded area of decreased density involving the pancreatic head. I cannot completely exclude pancreatic head mass. At some point MRI of the pancreas is suggested to further evaluate. 3. Focal area of poor enhancement involving the left kidney. This may relate to an area of parenchymal scarring. I cannot completely exclude a mass. This can be further assessed with MRI as well. Ruben Acuña Jr., MD Assessment and Plan Assessment and Plan Rash ? Drug rash ? antibiotic rash fading. Drugs implicated: cefepime IV, Keppra If rash persists consider changing Keppra to Dilantin if ok with Neuro. or try benadryl Fungal diaper rash: on Nystatin. Enterobacter in sputum appears to be colonization. Last CXR was negative. No systemic antibiotics needed. Will sign off please call back if any change in clinical condition or questions. Ivette Yoo MD November 08, 2016 14:59
[2016-11-08] MEDS: ENOXAPARIN SODIUM 40 MG/0.4 ML SYRINGE SQ SCH (21:06)
[2016-11-09] VITALS (8 sets, daily range): BP systolic 137–153; BP diastolic 72–92; PULSE 94–113; RESP 17–25; TEMP 98.3–98.7; O2SAT 92–96
[2016-11-09] MEDS: CHLORHEXIDINE GLUCONATE 2 % 1 PACK (2 CLOTHS) TOP SCH (04:00)
[2016-11-09] MEDS: LABETALOL HCL 100 MG TAB PO SCH ×3 (04:16→20:57)
[2016-11-09] MEDS: SODIUM CHLORIDE 1 GRAM TAB PO SCH ×3 (06:00→21:09)
--- NOTE | 2016-11-09 08:48 | HHI.NSPN ---
(Meir Sánchez TOOL HONING MACHINE SET UP OPERATOR) Note Status Status: Progress Note (Meir Sánchez) Interval History Interval History 51 year old male presents with being brought in as a trauma alert due to a head injury with altered mental status and a diminished GCS. The patient was in the bathroom and fell and hit his head. This was an unwitnessed fall. According to the patient's the patient had been unresponsive for approximately 15 minutes by the time ambulance services arrived. When they arrived the patient was noted to be a GCS of 14, however his mentation would wax and wane and go down as low as 3 again. On arrival to the emergency department he felt extremely nauseated. The CT of the head revealed diffuse subarachnoid bleed. Emergently intubated in the trauma bay. Possible seizure activity. Intubated in the emergency room. 10/05/16: Endovascular coiling 10/07/16 rinse intubated and sedated. Ventriculostomy in place 10/09/16: Remains intubated and sedated. Increased agitation with attempts at sedation vacation 10/17/16: Pupils 2 mm. Intubated and sedated. Somewhat more responsive with decreased sedation. External ventricular drain and closed to reservoir again today. 10/19/16: TCD with vasospasm, to angio with 10 mg Verapamil IA given. 10/20/16: Patient with fevers up to 102.8 per Nursing and cultures sent, Nursing reports CSF milky & with sediment. TCD being repeated this afternoon due to vast difference from that done this morning and yesterday. Chief Librarian Branch increased SBP parameters to 180-200 mm Hg to help overcome vasospasms. No increase in ICP. 10/21/16: Still with elevated temp but not as high. TCD yesterday demonstrated resolution of vasospasms but today it demonstrated a right SRI vasospasm. Patient with facial grimacing and attempted eye opening. CSF specimen sent yesterday w/o any organisms or WBCs seen on Gram stain. 10/23/16: Trach done 10/24/16: PEG done at bedside prior to being seen. Nursing reports prior to sedation he was following commands to all extremities although right was weaker. Mild vasospasm per TCD. 10/25/16: No evident distress. Noted to move BLE & slight LUE spontaneously. Did open eyes partially after having been stimulated. TCD being done. 10/26/16: No evident distress, attempted eye opening to verbal & attempted to follow some commands, some spontaneous movements noted BLE & LUE. TCD being done. 10/27/16: No apparent distress, no eye opening, follows some commands. 10/28/16: Remains tracheed, NAD, follows some commands, spontaneous movement of BLE & LUE noted. 10/29/16: Remains stable follows some commands, spontaneous movement of BLE & LUE noted 10/31/16: Patient trached and on T-piece when seen, follows commands, spontaneous movement of extremities noted. Did attempt to mouth words. 11/01/16: Patient doing well, on T-piece, follows commands, moving both feet spontaneously. Nursing reports he is intermittently following command and mouthing words. 11/02/16: Patient continues to do well, on T-piece, follows some commands, he does turn his head in direction of practitioner's voice. 11/03/16: Patient doing quite well today, on T-piece, follows commands, opens eyes briefly and holds up two fingers on left hand to command and tries with right. 11/04/16: Patient initially seen this morning with Therapy at the bedside. He had his eyes open at the time and would do a hand squeeze to command. When seen later he would not open his eyes but did follow commands and was able to show two fingers with each hand to command. Nursing reported that the patient mouthed that the RUE was not working. 6: His mental status is improving, he follows commands 4. He is awaiting transfer to group home care facility. No acute events overnight. 7: slightly restless today, has transfer order out of unit pending. no changes to neuro checks overnight. 58: Patient doing well, follows some simple commands but not consistently 5: Patient remains stable, eyes are open, he nods yes when asked if he has a headache. CTA brain yesterday demonstrates enlarging ventricles with periventricular hypodensity characteristic of developing hydrocephalus. 5: Patient stable, does not open eyes to verbal stimuli but does follow commands. (Meir Sánchez) Labs, Micro, & Vital Signs Constitutional Vital Signs Date Time Temp Pulse Resp B/P Pulse Ox O2 Delivery O2 Flow Rate FiO2 11/09/16 08:00 95 11/09/16 08:00 98.7 94 25 141/83 96 11/09/16 07:00 93 T-Piece 4.00 28 11/09/16 04:00 98.5 97 17 141/92 94 11/09/16 04:00 103 11/09/16 00:00 103 11/09/16 00:00 98.5 103 24 144/76 96 11/08/16 22:03 92 T-piece 6.00 28 11/08/16 20:00 98.5 112 24 125/86 94 11/08/16 20:00 112 11/08/16 19:00 94 T-Piece 4.00 28 11/08/16 16:00 98.7 104 20 122/94 97 11/08/16 16:00 105 11/08/16 12:00 97.7 120 24 119/70 94 11/08/16 12:00 120 11/09/16 07:00 Intake Total 2958 ml Output Total 2415 ml Balance 543 ml (Meir Sánchez) Review of Systems/Exam ROS Unable to obtain ROS due to being trached. Exam Resp: Slightly coarse & decreased breath sounds, equal excursion, non-laboured, trached & on T-piece. CV: S1S2 w/RRR w/o M/G/R, radial & pedal pulses 2+ bilaterally, cap refill < 2 sec. Monitor is sinus rhythm w/o any ectopy noted GI: Abdomen soft, nontender, bowel sounds all quads, PEG tube w/enteral feeds, fecal mgmt system in place. : Paul cath to BSD. Appears to have scrotal & groin fungal infection, skin beefy red in appearance. Neuro: Patient keeps eyes closed. PERRLA when checked. Follows commands and dry pan feeder with hands L>R, appears he did attempt to show 2 fingers upon command, he did not move wiggle his toes to command but he was spontaneously moving the BLE. He did not try to mouth any words to command but did stick out his tongue to command. (Meir Sánchez) Medications Current Medications Current Medications Medications (Trade) Dose Ordered Sig/Nava Route Start Time Stop Time Status Last Admin (Tylenol) 650 mg Q6H PRN PO 10/05/16 02:45 11/07/16 21:49 (Protonix Inj) 40 mg DAILY IV 10/05/16 09:00 11/08/16 09:52 (Tears Naturale Opth Soln) 1 drop TID EACH EYE 10/05/16 09:00 11/08/16 17:44 (Zofran Inj) 4 mg Q6H PRN IV 10/05/16 02:45 11/06/16 20:58 Miscellaneous Information 1 Q361D XX 10/05/16 02:45 10/05/16 02:45 (Chlorhexidine 2% Cloth) Taper DAILY@04 TOP 10/05/16 04:00 10/01/17 03:59 11/09/16 04:00 Chlorhexidine Gluconate 3 pack 3 pack UNSCH PRN TOP 10/05/16 02:45 (Keppra Inj/NS Inj) 105 ml @ 420 mls/hr Q12HR IV 10/05/16 09:00 11/08/16 21:07 (Pravachol) 40 mg DAILY PO 10/05/16 09:00 11/08/16 09:52 (NS Flush) See Protocol DAILY IV FLUSH 10/07/16 09:00 11/08/16 09:52 (NS Flush) See Protocol UNSCH PRN IV FLUSH 10/06/16 12:00 Sodium Chloride UNSCH PRN IV FLUSH 10/06/16 12:00 11/04/16 20:46 Norepinephrine Bitartrate 4 mg/ Sodium Chloride 254 ml @ 0 mls/hr TITRATE IV 10/06/16 18:00 10/28/16 20:14 (NS 1000 ml Inj) 1,000 ml @ 60 mls/hr [id number] IV 10/21/16 08:30 11/08/16 14:43 (Sodium Chloride) 3 gm Q8HR PO 10/22/16 14:00 11/09/16 06:00 (Florinef) 0.2 mg Q12HR PO 10/22/16 21:00 11/08/16 21:05 Enoxaparin Sodium 40 mg 40 mg Q24H SQ 10/23/16 21:00 Future Hold 11/08/16 21:06 Potassium Phosphate 30 mmol/ Sodium Chloride 260 ml @ 42 mls/hr UNSCH PRN IV 10/24/16 15:15 Potassium Chloride 100 ml @ 50 mls/hr Q2H PRN IV 11/03/16 05:15 11/08/16 01:55 (KCl 20 Meq Premix Inj) 100 ml @ 50 mls/hr Q2H PRN IV 11/03/16 05:15 Potassium Bicarb/ Potassium Chloride 50 meq 50 meq UNSCH PRN PO 11/03/16 05:15 Potassium Chloride 100 ml @ 25 mls/hr UNSCH PRN IV 11/03/16 05:15 11/05/16 04:42 Potassium Chloride 100 ml @ 50 mls/hr Q2H PRN IV 11/03/16 05:15 (Magnesium Sulfate Inj/NS Inj) 100 ml @ 50 mls/hr UNSCH PRN IV 11/03/16 05:15 Magnesium Oxide 800 mg 800 mg UNSCH PRN PO 11/03/16 05:15 (Magnesium Sulfate Inj/NS Inj) 100 ml @ 50 mls/hr UNSCH PRN IV 11/03/16 05:15 Potassium Phosphate 2000 mg 2,000 mg Q4H PRN PO 11/03/16 05:15 (Sodium Phosphate Inj/NS 250 ml Inj) 250 ml @ 42 mls/hr UNSCH PRN IV 11/03/16 05:15 (K-Phos) 2,000 mg UNSCH PRN PO/TUBE 11/03/16 05:15 (Trandate) 100 mg Q8H PO 11/03/16 20:00 11/09/16 04:16 (Apresoline) 50 mg Q12HR PO 11/03/16 19:00 11/08/16 21:05 (Norvasc) 5 mg DAILY PO 11/04/16 09:00 11/08/16 09:52 (Mycostatin Powder) 1 applic TID TOPICAL 11/06/16 09:00 11/08/16 17:44 (Lactinex) 1 tab Q12HR PO 11/06/16 21:00 11/08/16 21:00 (SEROquel) 25 mg BID@,12 PO 11/07/16 09:00 11/08/16 12:07 (Magic Mouthwash Adult Liq) 5 ml QID SWISH-SWAL 11/06/16 18:00 11/16/16 17:59 11/08/16 21:06 (Colace Liq) 100 mg Q12H PRN G-TUBE 11/06/16 17:00 (Effer-K Eff) 25 meq DAILY PO 11/06/16 17:00 11/09/16 16:59 11/08/16 14:44 (Meir Sánchez) Medical Decision Making MDM Remarks 1. Neurological function stable 2. 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 Left basal ganglia region CVA primarily per CT 4. CSF cultures w/o any growth 5. Max temp 98.7 6. Enterobacter cloacae in sputum from 7. Hypokalemia, resolved 8. Hypernatremia 9. Hydrocephalus (Meir Sánchez) Plan Plan Remarks Plan to take patient to OR on 11/10 for RADIAL SAW OPERATOR shunt Cognitive/speech therapy eval & tx Activity OOB to cardiac chair Continue PT & OT Continue abx per Surgical Chief Librarian Branch Continue Keppra for probable seizure activity Okay for Lovenox from NSGY standpoint but will hold after 11/09 evening dose Ulcer prophylaxis Okay to keep SBP between 120-160 mm Hg Will hold [facility] at present, most likely will need to be in hospital for an additional 2 days post-op (Meir Sánchez) Attending Statement I have personally seen and examined the patient on the date of this note. Pertinent documentation and study results have been reviewed by the undersigned. I have personally developed the treatment plan and performed medical decision making. Agree with findings, exam, and treatment plan as noted above. No change in neurologic exam over the past couple of days. Most recent CT scan reveals progressive hydrocephalus. Discuss with family Plan ventriculoperitoneal shunt 11/10/16 (Gino Mace MD) Meir Sánchez November 09, 2016 08:48 Gino Mace MD November 09, 2016 22:10
[2016-11-09] MEDS: POTASSIUM BICARBONATE 25 MEQ EFFERVESCENT TAB PO SCH (09:00)
[2016-11-09] MEDS: QUEtiapine FUMARATE 25 MG TAB PO SCH ×2 (09:12→13:27)
[2016-11-09] MEDS: PRAVASTATIN SOD 40 MG TAB PO SCH (09:12)
[2016-11-09] MEDS: ARTIFICIAL TEARS OPTH SOLN 15 ML BTL EACH EYE SCH ×3 (09:12→18:07)
[2016-11-09] MEDS: PANTOPRAZOLE SODIUM 40 MG VIAL IV SCH (09:12)
[2016-11-09] MEDS: levETIRAcetam INJ 500 MG in SODIUM CHLORIDE 0.9% INJ 100 ML IV SCH ×2 (09:12→20:29)
[2016-11-09] MEDS: amLODIPine BESYLATE 5 MG TAB PO SCH (09:12)
[2016-11-09] MEDS: LACTOBACILLUS ACIDOPHILUS TAB PO SCH ×2 (09:12→20:28)
[2016-11-09] MEDS: hydrALAZINE HCL 50 MG TAB PO SCH ×2 (09:12→20:28)
[2016-11-09] MEDS: SODIUM CHLORIDE 0.9% FLUSH 10 ML FLUSH IV FLUSH SCH (09:12)
[2016-11-09] MEDS: NYSTAT/DIPHENHY/LIDO MOUTHWASH (Adult) 120ML SWISH-SWAL SCH ×4 (09:13→20:28)
[2016-11-09] MEDS: NYSTATIN 100,000 U/GM PWD 15 GM BTL TOPICAL SCH ×3 (09:13→18:07)
[2016-11-09] MEDS ORDERED: DIPHENOXYLATE/ATROPINE 2.5 MG/0.025 MG TAB PO PRN (09:45)
--- NOTE | 2016-11-09 09:47 | HHI.PR ---
Subjective Remarks More awake and alert today. With some secretions, suctioned by the nurse at bedside. Less agitated, appears in nad. Still with diarrhea. check c difff, add antidiarrhea agents. Objective Vitals Vital Signs Date Time Temp Pulse Resp B/P Pulse Ox O2 Delivery O2 Flow Rate FiO2 11/09/16 08:00 95 11/09/16 08:00 98.7 94 25 141/83 96 11/09/16 07:00 93 T-Piece 4.00 28 11/09/16 04:00 98.5 97 17 141/92 94 11/09/16 04:00 103 11/09/16 00:00 103 11/09/16 00:00 98.5 103 24 144/76 96 11/08/16 22:03 92 T-piece 6.00 28 11/08/16 20:00 98.5 112 24 125/86 94 11/08/16 20:00 112 11/08/16 19:00 94 T-Piece 4.00 28 11/08/16 16:00 98.7 104 20 122/94 97 11/08/16 16:00 105 11/08/16 12:00 97.7 120 24 119/70 94 11/08/16 12:00 120 I/O 11/08/16 11/08/16 11/08/16 11/09/16 11/09/16 11/09/16 06:59 14:59 22:59 06:59 14:59 22:59 Intake Total 794 ml 1088 ml 1296 ml 574 ml Output Total 575 ml 465 ml 1600 ml 350 ml Balance 219 ml 623 ml -304 ml 224 ml IV Total 408 ml 588 ml 598 ml 347 ml Tube Feeding 266 ml 500 ml 598 ml Tube Irrigant 227 ml Other 120 ml 100 ml Output Urine Total 375 ml 465 ml 750 ml 300 ml Stool Total 200 ml 850 ml 50 ml Result Diagram: 11/08/16 0445 11/08/16 0445 Imaging Last Impressions Head CT 11/07/16 0000 Signed Impressions: Service Date/Time: Monday, November 07, 2016 10:51 - CONCLUSION: Enlarging ventricles with increasing periventricular hypodensity characteristic of developing hydrocephalus. Left thalamic infarct, minimal hemorrhage in the right sylvian fissure and minimal blood in the ventricles is again noted. No evidence of new infarct or parenchymal hemorrhage. Leonel Alva MD Chest X-Ray 11/01/16 0600 Signed Impressions: Service Date/Time: Tuesday, November 01, 2016 04:37 - CONCLUSION: 1. No acute cardiopulmonary disease. Trevin De León MD Transcranial Doppler Study Complete 10/26/16 0700 Signed Impressions: Service Date/Time: Wednesday, October 26, 2016 08:20 - CONCLUSION: Minimal interval improvement with no evidence for vasospasm. Christian Song MD FACR Neck CTA 10/19/16 0000 Signed Impressions: Service Date/Time: Wednesday, October 19, 2016 14:19 - CONCLUSION: Negative for dissection or significant stenosis. Christian Song MD FACR Head CTA 10/19/16 0000 Signed Impressions: Service Date/Time: Wednesday, October 19, 2016 14:19 - CONCLUSION: 1. Interval development of significant vasospasm in the left MCA and SRI territories. 2. Mild vasospasm in the basilar artery.. Gume Mckeon MD Cerebral Arteriogram 10/19/16 0000 Signed Impressions: Service Date/Time: Wednesday, October 19, 2016 16:06 - CONCLUSION: 1. Vasospasm in the left MCA and SRI territories 2. Spasmolytic infusion, left internal carotid artery as above.. 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 Gume Mckeon MD Pelvis X-Ray 10/05/16109 Signed Impressions: Service Date/Time: Wednesday, October 05, 2016 01:22 - CONCLUSION: Unremarkable examination of the pelvis. Ruben Acuña Jr., MD Chest CT 10/05/16109 Signed Impressions: Service Date/Time: Wednesday, October 05, 2016 01:46 - CONCLUSION: 1. No acute intrathoracic abnormality. 2. Bibasilar atelectasis. 3. Cardiomegaly. 4. Prior granulomatous disease. Ruben Acuña Jr., MD Cervical Spine CT 10/05/16109 Signed Impressions: Service Date/Time: Wednesday, October 05, 2016 01:40 - CONCLUSION: 1. No fracture or dislocation. 2. Multilevel degenerative changes. Ruben Acuña Jr., MD Abdomen/Pelvis CT 10/05/16 0110 Signed Impressions: Service Date/Time: Wednesday, October 05, 2016 01:46 - CONCLUSION: 1. No acute trauma. 2. Rounded area of decreased density involving the pancreatic head. I cannot completely exclude pancreatic head mass. At some point MRI of the pancreas is suggested to further evaluate. 3. Focal area of poor enhancement involving the left kidney. This may relate to an area of parenchymal scarring. I cannot completely exclude a mass. This can be further assessed with MRI as well. Ruben Acuña Jr., MD Objective Remarks GENERAL: Middle-aged male lying in bed, s/p trach. Appears agitated/on off, following commands, takes time to answer questions., Appears chronically ill patient. SKIN: Dry. Oral thrush. Noted rash on LE and upper extremities, with red borders , serpentiforn rash, raised and red borders. HEAD: Normocephalic. EYES: Pupils are 2 mm and reactive bilaterally. NECK: Supple, trachea midline. Trach site clean, dry. CARDIOVASCULAR: Regular rate and rhythm. No JVD. RESPIRATORY:On Tp today, Breath sounds equal bilaterally. Clear, no wheezes or crackles. Good bilateral excursions. Comfortable. GASTROINTESTINAL: Abdomen soft, non-tender, nondistended. BS active. No guarding. EXTREMITIES: Nonfocal clubbing cyanosis or edema, well perfused. NEURO: Partial eye opening to sternal rub. Follows commands in bilateral upper and lower extremities. Withdraws to pain A/P Problem List: (1) 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 ICD Code: I60.8 Status: Acute (2) Hypertension ICD Code: I10 Status: Acute (3) Major neurocognitive disorder due to vascular disease, without behavioral disturbance, severe ICD Code: F01.50 Status: Acute Assessment and Plan Assessment: 51yM with aneurysmal SAH, post-bleed day 23, s/p basilar artery coiling 10/05. S/p IA Verapamil 10/15 and 10/19 for cerebral vasospasm. There is some improvement in encephalopathy, acute hypoxic respiratory failure. Resolving sepsis. critically ill. Now in possible cerebral salt wasting. Continue salt tabs, 3% saline, florinef, and NS 150 ml per hour. strict I/Os. TCDs per N/S. s/p Trach 4/23 and PEG 10/24. 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 Thalamic infarct Cerebral Vasospasm Developing Hydrocephalus. Neurosurgery plans for shunt 11/10/16 - Núñez Veliz 5 Lucas grade 3. - Basilar tip coiled. - Nimodipine. Status post intra-arterial verapamil for vasospasm on 10/15, 10/19 - Pravachol - SBP target reduced by Dr. Mace to 120-160. - TCD's per N/S Dr Mace. No recent vasospasm - Neuro exam improving, weakly following commands all 4 ext - Agitated requiring restraints, start seroquel. - CT head 11/07 16 reviewed. Enlarging ventricles with increasing periventricular hypodensity characteristic of developing hydrocephalus. Left thalamic infarct, minimal hemorrhage in the right sylvian fissure and minimal blood in the ventricles is again noted. No evidence of new infarct or parenchymal hemorrhage. Respiratory: Acute Hypoxic and Hypercarbic Respiratory Failure - Intubated for airway protection - s/p trach 10/23 now on CPAP/intermittent TP - Tolerating TP 2-3 hours per day - DuoNeb's as needed for wheezing, start scheduled DuoNeb as well T-piece well tolerated. CV: Septic Shock- resolved. - goal SBP 120-[address] mace - Off Levophed -Resolved Renal: Possible Cerebral Salt Wasting - UO has decreased now to normal range. - Goal euvolemia - Paul for accurate I/Os Strict I/Os - NaCl tabs 3gm q8h - Florinef 0.2mg q12h - NS @ 120 ml per hour 10/30. DC 3% - strict I/Os q1h - urine studies 10/21 consistent with cerebral salt wasting: at that time was patient intravascularly hypovolemic on clinical exam - NaCl boluses as needed to maintain euvolemia. FEN/GI: Acute Protein Calorie Malnutrition- mild -- vital high protein 40mL/hr. -- daily BMP -- ICU electrolyte protocol. Oral thrush -- Add magic mouth wash Heme/ID: Sepsis ( tachy, leukocytosis,, fevers, poss PNA, UTI) Fever, Leukocytosis. Prior UTI. Pneumonia -- s/p full course abx -- 10/20 sputum culture- Enterobacter, some resistance. sensitive to Cefepime. -- 10/20 urine culture- NGTD -- 10/20 CSF: 0 wbc, glu 111, prot 27.8, culture NGTD -- 10/20 Blood cx: NGTD -- 10/21 CSF: NGTD. -- Dr. Mace d/c EVD 10/21 -- d/c d vancomycin and Flagyl. -- Anticipated completion of 10 day course of cefepime 2gm iv q8hr was on 10/29, repeat sputum cx GNR, ID pending. Continue cefepime for now -- Skin rash poss related to antibiotics vs parasite va fungal . Consult ID for further evaluation and treatment indications. Endocrine: Hyperglycemia of critical illness -- SSI Diarrhea/ fecal incontinence: Check C diff. Add antidiarrhea agents. Prophylaxis: - Teds SCDs - Started Lovenox per nsg 10/23/16 - Protonix IV DC plan: Pending improvement, also difficult placement. Hypertension control. Well diuresed. Attempting to rid bacterial bronchitis. Awaiting LTAC approval. Stable respiratory and hemodynamic function. Developing hydrocephalus 11/07/16 , neurosurgery evaluating for shunt placement, plan for shunt on 11/10/16 . Hold transferring to the med/surg floor yet and DC at this time Discussed with the patient, nurse. Problem Qualifiers (1) Hypertension: Qualified Code: I10 - Essential hypertension Adele Cooper MD November 09, 2016 09:47
[2016-11-09] MEDS: FLUDROCORTISONE ACETATE 0.1 MG TAB PO SCH ×2 (13:27→20:28)
[2016-11-09] MEDS: metroNIDAZOLE 500 MG TAB PO SCH ×2 (17:37→23:36)
[2016-11-09] MEDS: SODIUM CHLOR 0.9% 1000 ML INJ 1,000 ML IV SCH (20:58)
[2016-11-10] VITALS (8 sets, daily range): BP systolic 138–163; BP diastolic 80–91; PULSE 97–113; RESP 16–27; TEMP 97.7–98.6; O2SAT 92–99
[2016-11-10] MEDS: CHLORHEXIDINE GLUCONATE 2 % 1 PACK (2 CLOTHS) TOP SCH (04:00)
[2016-11-10] MEDS: LABETALOL HCL 100 MG TAB PO SCH ×3 (04:24→21:14)
[2016-11-10] MEDS: SODIUM CHLORIDE 1 GRAM TAB PO SCH ×3 (05:18→21:14)
--- NOTE | 2016-11-10 06:54 | HHI.PR ---
Subjective Remarks Patient is more awake today. Some secretions. He doesn't appear in acute distress. Still with diarrhea, C diff positive started flagyl. Plan for shunt today. Objective Vitals Vital Signs Date Time Temp Pulse Resp B/P Pulse Ox O2 Delivery O2 Flow Rate FiO2 11/10/16 04:00 107 11/10/16 04:00 98.5 107 18 151/91 92 11/10/16 00:00 113 11/10/16 00:00 98.0 105 26 150/80 93 11/09/16 20:21 95 T-piece 28 11/09/16 20:00 98.4 113 23 153/83 94 11/09/16 20:00 113 11/09/16 20:00 93 T-Piece 4.00 28 11/09/16 16:00 100 11/09/16 16:00 98.3 102 25 137/72 92 11/09/16 12:00 110 11/09/16 12:00 98.7 102 19 140/83 95 11/09/16 08:00 95 11/09/16 08:00 98.7 94 25 141/83 96 11/09/16 07:44 95 T-piece 5.00 28 11/09/16 07:00 93 T-Piece 4.00 28 I/O 11/09/16 11/09/16 11/09/16 11/10/16 11/10/16 11/10/16 07:00 15:00 23:00 07:00 15:00 23:00 Intake Total 574 ml 604 ml 1913 ml Output Total 350 ml 875 ml 1695 ml Balance 224 ml -271 ml 218 ml IV Total 347 ml 362 ml 1425 ml Tube Feeding 242 ml 488 ml Tube Irrigant 227 ml Output Urine Total 300 ml 425 ml 1225 ml Stool Total 50 ml 450 ml 470 ml # Voids 1 Result Diagram: 11/08/165 11/08/16444 Objective Remarks GENERAL: Middle-aged male lying in bed, s/p trach. Less agitated, following commands, takes time to answer questions., Appears chronically ill patient. SKIN: Dry. Oral thrush improving. Noted rash on LE and upper extremities, with red borders, serpentiforn rash, raised and red borders. HEAD: Normocephalic. EYES: Pupils are 2 mm and reactive bilaterally. NECK: Supple, trachea midline. Trach site clean, dry. CARDIOVASCULAR: Regular rate and rhythm. No JVD. RESPIRATORY:On Tp today, Breath sounds equal bilaterally. Clear, no wheezes or crackles. Good bilateral excursions. Comfortable. GASTROINTESTINAL: Abdomen soft, non-tender, nondistended. BS active. No guarding. EXTREMITIES: Nonfocal clubbing cyanosis or edema, well perfused. NEURO: Partial eye opening to sternal rub. Follows commands in bilateral upper and lower extremities. Withdraws to pain A/P Problem List: (1) 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 ICD Code: I60.8 Status: Acute (2) Hypertension ICD Code: I10 Status: Acute (3) Major neurocognitive disorder due to vascular disease, without behavioral disturbance, severe ICD Code: F01.50 Status: Acute Assessment and Plan Assessment: 51yM with aneurysmal SAH, post-bleed day 23, s/p basilar artery coiling 10/05. S/p IA Verapamil 10/15 and 10/19 for cerebral vasospasm. There is some improvement in encephalopathy, acute hypoxic respiratory failure. Resolving sepsis. critically ill. Now in possible cerebral salt wasting. Continue salt tabs, 3% saline, florinef, and NS 150 ml per hour. strict I/Os. TCDs per N/S. s/p Trach 10/23 and PEG 10/24. 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 Thalamic infarct Cerebral Vasospasm Developing Hydrocephalus. Neurosurgery plans for shunt 11/10/16 - Núñez Veliz 5 Lucas grade 3. - Basilar tip coiled. - Nimodipine. Status post intra-arterial verapamil for vasospasm on 10/15, 10/19 - Pravachol - SBP target reduced by Dr. Mace to 120-160. - TCD's per N/S Dr Mace. No recent vasospasm - Neuro exam improving, weakly following commands all 4 ext - Agitated requiring restraints, start seroquel. - CT head 11/07 16 reviewed. Enlarging ventricles with increasing periventricular hypodensity characteristic of developing hydrocephalus. Left thalamic infarct, minimal hemorrhage in the right sylvian fissure and minimal blood in the ventricles is again noted. No evidence of new infarct or parenchymal hemorrhage. Respiratory: Acute Hypoxic and Hypercarbic Respiratory Failure - Intubated for airway protection - s/p trach 10/23 now on CPAP/intermittent TP - Tolerating TP 2-3 hours per day - DuoNeb's as needed for wheezing, start scheduled DuoNeb as well T-piece well tolerated. CV: Septic Shock- resolved. - goal SBP 120-[address] mace - Off Levophed -Resolved Renal: Possible Cerebral Salt Wasting - UO has decreased now to normal range. - Goal euvolemia - Paul for accurate I/Os Strict I/Os - NaCl tabs 3gm q8h - Florinef 0.2mg q12h - NS @ 120 ml per hour 10/30. DC 3% - strict I/Os q1h - urine studies 10/21 consistent with cerebral salt wasting: at that time was patient intravascularly hypovolemic on clinical exam - NaCl boluses as needed to maintain euvolemia. FEN/GI: Acute Protein Calorie Malnutrition- mild -- vital high protein 40mL/hr. -- daily BMP -- ICU electrolyte protocol. Oral thrush -- Add magic mouth wash Heme/ID: Sepsis ( tachy, leukocytosis,, fevers, poss PNA, UTI) Fever, Leukocytosis. Prior UTI. Pneumonia -- s/p full course abx -- 10/20 sputum culture- Enterobacter, some resistance. sensitive to Cefepime. -- 10/20 urine culture- NGTD -- 10/20 CSF: 0 wbc, glu 111, prot 27.8, culture NGTD -- 10/20 Blood cx: NGTD -- 10/21 CSF: NGTD. -- Dr. Mace d/c EVD 10/21 -- d/c d vancomycin and Flagyl. -- Anticipated completion of 10 day course of cefepime 2gm iv q8hr was on 10/29, repeat sputum cx GNR, ID pending. Continue cefepime for now -- Skin rash poss related to antibiotics vs parasite va fungal . Consult ID for further evaluation and treatment indications. -- Cdiff colitis: Start flagyl 500 mg TID Endocrine: Hyperglycemia of critical illness -- SSI Diarrhea/ fecal incontinence: Check C diff. Add antidiarrhea agents. Prophylaxis: - Teds SCDs - Started Lovenox per nsg 10/23/16 - Protonix IV DC plan: Pending improvement, also difficult placement. Hypertension control. Well diuresed. Attempting to rid bacterial bronchitis. Awaiting LTAC approval. Stable respiratory and hemodynamic function. Developing hydrocephalus 11/07/16 , neurosurgery evaluating for shunt placement, plan for shunt on 11/10/16 . Hold transferring to the med/surg floor yet and DC at this time Discussed with the patient, nurse. Problem Qualifiers (1) Hypertension: Qualified Code: I10 - Essential hypertension Adele Cooper MD November 10, 2016 06:54
[2016-11-10] MEDS: FLUDROCORTISONE ACETATE 0.1 MG TAB PO SCH ×2 (08:17→21:14)
[2016-11-10] MEDS: PRAVASTATIN SOD 40 MG TAB PO SCH (08:17)
[2016-11-10] MEDS: PANTOPRAZOLE SODIUM 40 MG VIAL IV SCH (08:17)
[2016-11-10] MEDS: levETIRAcetam INJ 500 MG in SODIUM CHLORIDE 0.9% INJ 100 ML IV SCH ×2 (08:17→21:48)
[2016-11-10] MEDS: hydrALAZINE HCL 50 MG TAB PO SCH ×2 (08:17→21:14)
[2016-11-10] MEDS: amLODIPine BESYLATE 5 MG TAB PO SCH (08:17)
[2016-11-10] MEDS: QUEtiapine FUMARATE 25 MG TAB PO SCH ×2 (08:17→11:29)
[2016-11-10] MEDS: NYSTATIN 100,000 U/GM PWD 15 GM BTL TOPICAL SCH ×3 (08:18→18:00)
[2016-11-10] MEDS: LACTOBACILLUS ACIDOPHILUS TAB PO SCH ×2 (08:18→21:15)
[2016-11-10] MEDS: ARTIFICIAL TEARS OPTH SOLN 15 ML BTL EACH EYE SCH ×3 (08:18→18:00)
[2016-11-10] MEDS: SODIUM CHLORIDE 0.9% FLUSH 10 ML FLUSH IV FLUSH SCH (08:18)
[2016-11-10] MEDS: metroNIDAZOLE 500 MG TAB PO SCH ×3 (08:18→23:29)
[2016-11-10] MEDS: NYSTAT/DIPHENHY/LIDO MOUTHWASH (Adult) 120ML SWISH-SWAL SCH ×4 (08:18→21:14)
[2016-11-10] MEDS ORDERED: GELFOAM SIZE 100 ONE (08:31)
[2016-11-10] MEDS ORDERED: THROMBIN (TOPICAL) 5,000 UNIT VIAL ONE (08:31)
--- NOTE | 2016-11-10 09:35 | HHI.NSPN ---
(Meir Sánchez [employer]IS[employer] WORKER) Note Status Status: Progress Note (Meir Sánchez) Interval History Interval History 51 year old male presents with being brought in as a trauma alert due to a head injury with altered mental status and a diminished GCS. The patient was in the bathroom and fell and hit his head. This was an unwitnessed fall. According to the patient's the patient had been unresponsive for approximately 15 minutes by the time ambulance services arrived. When they arrived the patient was noted to be a GCS of 14, however his mentation would wax and wane and go down as low as 3 again. On arrival to the emergency department he felt extremely nauseated. The CT of the head revealed diffuse subarachnoid bleed. Emergently intubated in the trauma bay. Possible seizure activity. Intubated in the emergency room. 10/05/16: Endovascular coiling 10/07/16 rinse intubated and sedated. Ventriculostomy in place 10/09/16: Remains intubated and sedated. Increased agitation with attempts at sedation vacation 10/17/16: Pupils 2 mm. Intubated and sedated. Somewhat more responsive with decreased sedation. External ventricular drain and closed to reservoir again today. 10/19/16: TCD with vasospasm, to angio with 10 mg Verapamil IA given. 10/20/16: Patient with fevers up to 102.8 per Nursing and cultures sent, Nursing reports CSF milky & with sediment. TCD being repeated this afternoon due to vast difference from that done this morning and yesterday. [employer] increased SBP parameters to 180-200 mm Hg to help overcome vasospasms. No increase in ICP. 10/21/16: Still with elevated temp but not as high. TCD yesterday demonstrated resolution of vasospasms but today it demonstrated a right SRI vasospasm. Patient with facial grimacing and attempted eye opening. CSF specimen sent yesterday w/o any organisms or WBCs seen on Gram stain. 10/23/16: Trach done 10/24/16: PEG done at bedside prior to being seen. Nursing reports prior to sedation he was following commands to all extremities although right was weaker. Mild vasospasm per TCD. 10/25/16: No evident distress. Noted to move BLE & slight LUE spontaneously. Did open eyes partially after having been stimulated. TCD being done. 10/26/16: No evident distress, attempted eye opening to verbal & attempted to follow some commands, some spontaneous movements noted BLE & LUE. TCD being done. 10/27/16: No apparent distress, no eye opening, follows some commands. 10/28/16: Remains tracheed, NAD, follows some commands, spontaneous movement of BLE & LUE noted. 10/29/16: Remains stable follows some commands, spontaneous movement of BLE & LUE noted 10/31/16: Patient trached and on T-piece when seen, follows commands, spontaneous movement of extremities noted. Did attempt to mouth words. 11/01/16: Patient doing well, on T-piece, follows commands, moving both feet spontaneously. Nursing reports he is intermittently following command and mouthing words. 11/02/16: Patient continues to do well, on T-piece, follows some commands, he does turn his head in direction of practitioner's voice. 11/03/16: Patient doing quite well today, on T-piece, follows commands, opens eyes briefly and holds up two fingers on left hand to command and tries with right. 11/04/16: Patient initially seen this morning with Therapy at the bedside. He had his eyes open at the time and would do a hand squeeze to command. When seen later he would not open his eyes but did follow commands and was able to show two fingers with each hand to command. Nursing reported that the patient mouthed that the RUE was not working. 6: His mental status is improving, he follows commands 4. He is awaiting transfer to [facility]. No acute events overnight. 7: slightly restless today, has transfer order out of unit pending. no changes to neuro checks overnight. 58: Patient doing well, follows some simple commands but not consistently 5: Patient remains stable, eyes are open, he nods yes when asked if he has a headache. CTA brain yesterday demonstrates enlarging ventricles with periventricular hypodensity characteristic of developing hydrocephalus. 5: Patient stable, does not open eyes to verbal stimuli but does follow commands. 11/10: Patient with stable neurological function. His eyes were initially open when seen but he kept them closed when examined although he did follow other commands. Infectious Disease saw the patient yesterday for a questionable drug- induced rash and signed off. Later in the day the patient had a positive PCR for Clostridium difficile and treatment was started. (Meir Sánchez) Labs, Micro, & Vital Signs Results Allergies Coded Allergies Type Severity Reaction Last Updated Verified Penicillin Allergy Unknown 10/06/16 Yes Sulfa Allergy Unknown 10/06/16 Yes / 06:00 18:00 06:00 18:00 06:00 18:00 Intake Total 1426 ml 1088 ml 1870 ml 604 ml 1913 ml Output Total 1125 ml 465 ml 1950 ml 875 ml 1695 ml Balance 301 ml 623 ml -80 ml -271 ml 218 ml IV Total 790 ml 588 ml 945 ml 362 ml 1425 ml Tube Feeding 416 ml 500 ml 598 ml 242 ml 488 ml Tube Irrigant 227 ml Other 220 ml 100 ml Output Urine Total 725 ml 465 ml 1050 ml 425 ml 1225 ml Stool Total 400 ml 900 ml 450 ml 470 ml # Voids 1 Laboratory Tests Test 11/07/16 11/08/16 11/09/16 20:45 04:45 13:30 Potassium Level 3.2 MEQ/L 3.7 MEQ/L White Blood Count 8.7 TH/MM3 Red Blood Count 3.39 MIL/MM3 Hemoglobin 9.9 GM/DL Hematocrit 29.4 % Mean Corpuscular Volume 86.6 FL Mean Corpuscular Hemoglobin 29.1 PG Mean Corpuscular Hemoglobin 33.6 % Concent Red Cell Distribution Width 15.4 % Platelet Count 152 TH/MM3 Mean Platelet Volume 9.4 FL Neutrophils (%) (Auto) 68.4 % Lymphocytes (%) (Auto) 18.6 % Monocytes (%) (Auto) 8.4 % Eosinophils (%) (Auto) 3.6 % Basophils (%) (Auto) 1.0 % Neutrophils # (Auto) 5.9 TH/MM3 Lymphocytes # (Auto) 1.6 TH/MM3 Monocytes # (Auto) 0.7 TH/MM3 Eosinophils # (Auto) 0.3 TH/MM3 Basophils # (Auto) 0.1 TH/MM3 CBC Comment AUTO DIFF Differential Comment AUTO DIFF CONFIRMED Ovalocytes 1+ Acanthocytes OCC Sodium Level 148 MEQ/L Chloride Level 114 MEQ/L Carbon Dioxide Level 27.1 MEQ/L Anion Gap 7 MEQ/L Blood Urea Nitrogen 10 MG/DL Creatinine 0.69 MG/DL Estimat Glomerular Filtration 121 ML/MIN Rate Random Glucose 100 MG/DL Calcium Level 8.2 MG/DL Phosphorus Level 3.0 MG/DL Magnesium Level 2.0 MG/DL Stool C. difficile Toxin (PCR) POSITIVE Stl C. difficile Toxin PRESUMPTIVE Epiderm 027 NEGATIVE Constitutional Vital Signs Date Time Temp Pulse Resp B/P Pulse Ox O2 Delivery O2 Flow Rate FiO2 11/10/16 08:00 98.6 100 23 163/89 94 11/10/16 08:00 107 11/10/16 07:00 94 T-Piece 4.00 28 11/10/16 04:00 107 11/10/16 04:00 98.5 107 18 151/91 92 11/10/16 00:00 113 11/10/16 00:00 98.0 105 26 150/80 93 11/09/16 20:21 95 T-piece 28 11/09/16 20:00 98.4 113 23 153/83 94 11/09/16 20:00 113 11/09/16 20:00 93 T-Piece 4.00 28 11/09/16 16:00 100 11/09/16 16:00 98.3 102 25 137/72 92 11/09/16 12:00 110 11/09/16 12:00 98.7 102 19 140/83 95 11/10/16 07:00 Intake Total 2517 ml Output Total 2570 ml Balance -53 ml (Meir Sánchez) Review of Systems/Exam ROS Unable to obtain ROS due to being trached. He does shake his head "no" when asked if he has a headache. Exam Resp: Essentially clear breath sounds bilaterally, equal excursion, non-laboured , trached & on T-piece. Some blood-tinged sputum noted in T-piece. CV: S1S2 w/RRR w/o M/G/R, radial & pedal pulses 2+ bilaterally, cap refill < 2 sec. Monitor is sinus rhythm w/o any ectopy noted GI: Abdomen soft, nontender, bowel sounds all quads, PEG tube clamped at present , fecal mgmt system in place. : Paul cath to BSD. Appears to have scrotal & groin fungal infection, skin beefy red in appearance. Neuro: Patient initially had his eyes open but when seen keeps them closed. PERRLA when checked. 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 He was spontaneously moving the BLE. (Meir Sánchez ) Medications Current Medications Current Medications Medications (Trade) Dose Ordered Sig/Nava Route Start Time Stop Time Status Last Admin (Tylenol) 650 mg Q6H PRN PO 10/05/16 02:45 11/07/16 21:49 (Protonix Inj) 40 mg DAILY IV 10/05/16 09:00 11/10/16 08:17 (Tears Naturale Opth Soln) 1 drop TID EACH EYE 10/05/16 09:00 11/10/16 08:18 (Zofran Inj) 4 mg Q6H PRN IV 10/05/16 02:45 11/06/16 20:58 Miscellaneous Information 1 Q361D XX 10/05/16 02:45 10/05/16 02:45 (Chlorhexidine 2% Cloth) Taper DAILY@04 TOP 10/05/16 04:00 10/01/17 03:59 11/10/16 04:00 Chlorhexidine Gluconate 3 pack 3 pack UNSCH PRN TOP 10/05/16 02:45 (Keppra Inj/NS Inj) 105 ml @ 420 mls/hr Q12HR IV 10/05/16 09:00 11/10/16 08:17 (Pravachol) 40 mg DAILY PO 10/05/16 09:00 11/10/16 08:17 (NS Flush) See Protocol DAILY IV FLUSH 10/07/16 09:00 11/10/16 08:18 (NS Flush) See Protocol UNSCH PRN IV FLUSH 10/06/16 12:00 Sodium Chloride UNSCH PRN IV FLUSH 10/06/16 12:00 11/04/16 20:46 Norepinephrine Bitartrate 4 mg/ Sodium Chloride 254 ml @ 0 mls/hr TITRATE IV 10/06/16 18:00 10/28/16 20:14 (NS 1000 ml Inj) 1,000 ml @ 60 mls/hr [id number] IV 10/21/16 08:30 11/09/16 20:58 (Sodium Chloride) 3 gm Q8HR PO 10/22/16 14:00 11/10/16 05:18 (Florinef) 0.2 mg Q12HR PO 10/22/16 21:00 11/10/16 08:17 Enoxaparin Sodium 40 mg 40 mg Q24H SQ 10/23/16 21:00 Hold 11/08/16 21:06 Potassium Phosphate 30 mmol/ Sodium Chloride 260 ml @ 42 mls/hr UNSCH PRN IV 10/24/16 15:15 Potassium Chloride 100 ml @ 50 mls/hr Q2H PRN IV 11/03/16 05:15 11/08/16 01:55 (KCl 20 Meq Premix Inj) 100 ml @ 50 mls/hr Q2H PRN IV 11/03/16 05:15 Potassium Bicarb/ Potassium Chloride 50 meq 50 meq UNSCH PRN PO 11/03/16 05:15 Potassium Chloride 100 ml @ 25 mls/hr UNSCH PRN IV 11/03/16 05:15 11/05/16 04:42 Potassium Chloride 100 ml @ 50 mls/hr Q2H PRN IV 11/03/16 05:15 (Magnesium Sulfate Inj/NS Inj) 100 ml @ 50 mls/hr UNSCH PRN IV 11/03/16 05:15 Magnesium Oxide 800 mg 800 mg UNSCH PRN PO 11/03/16 05:15 (Magnesium Sulfate Inj/NS Inj) 100 ml @ 50 mls/hr UNSCH PRN IV 11/03/16 05:15 Potassium Phosphate 2000 mg 2,000 mg Q4H PRN PO 11/03/16 05:15 (Sodium Phosphate Inj/NS 250 ml Inj) 250 ml @ 42 mls/hr UNSCH PRN IV 11/03/16 05:15 (K-Phos) 2,000 mg UNSCH PRN PO/TUBE 11/03/16 05:15 (Trandate) 100 mg Q8H PO 11/03/16 20:00 11/10/16 04:24 (Apresoline) 50 mg Q12HR PO 11/03/16 19:00 11/10/16 08:17 (Norvasc) 5 mg DAILY PO 11/04/16 09:00 11/10/16 08:17 (Mycostatin Powder) 1 applic TID TOPICAL 11/06/16 09:00 11/10/16 08:18 (Lactinex) 1 tab Q12HR PO 11/06/16 21:00 11/10/16 08:18 (SEROquel) 25 mg BID@09,12 PO 11/07/16 09:00 11/10/16 08:17 (Magic Mouthwash Adult Liq) 5 ml QID SWISH-SWAL 11/06/16 18:00 11/16/16 17:59 11/10/16 08:18 (Colace Liq) 100 mg Q12H PRN G-TUBE 11/06/16 17:00 (Imodium) 2 mg UNSCH PRN PO 11/09/16 09:45 (Lomotil Tab) 1 tab Q6H PRN PO 11/09/16 09:45 (Flagyl) 500 mg Q8H PO 11/09/16 16:00 11/10/16 08:18 (Meir Sánchez) Medical Decision Making MDM Remarks 1. Neurological function stable 2. 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 Left basal ganglia region CVA primarily per CT 4. CSF cultures w/o any growth 5. Max temp 98.7 6. Enterobacter cloacae in sputum from 7. Hypokalemia, resolved 8. Hypernatremia 9. Hydrocephalus 10. Clostridium difficile infection (Meir Sánchez) Plan Plan Remarks Plan was to take patient to OR today for [employer] shunt but will defer until next week due to C diff infection Dr Mace spoke with Dr Yoo who stated that C diff was not a contraindication for surgery but when Dr Mace spoke with the and explained the procedure she stated that the patient had previously pulled the FMS out and had stool on his hands and on the bed. Therefore it was felt best to defer surgery at this time to avoid any possible contamination of the surgical wound. Cognitive/speech therapy eval & tx Activity OOB to cardiac chair Continue PT & OT Continue abx per [employer] Continue Keppra for probable seizure activity Okay for Lovenox from NSGY standpoint but will hold after 05 evening dose Ulcer prophylaxis Okay to keep SBP between 120-160 mm Hg (Meir Sánchez) Attending Statement I have personally seen and examined the patient on the date of this note. Pertinent documentation and study results have been reviewed by the undersigned. I have personally developed the treatment plan and performed medical decision making. Agree with findings, exam, and treatment plan as noted above. Patient's CT scan findings and clinical course discussed with his on the telephone today. She is in agreement with ventriculoperitoneal shunt. Since this is elective procedure and he was just started on medications for C. difficile and per nursing report has had feces on his hands and abdomen and head areas when agitated, it is felt best to postpone the procedure until a possible sources of infection are well-controlled. Discussed with infectious disease today. (Gino Mace MD) Meir Sánchez November 10, 2016 09:35 Gino Mace MD November 10, 2016 22:49
[2016-11-10] MEDS: SODIUM CHLOR 0.9% 1000 ML INJ 1,000 ML IV SCH (22:35)
[2016-11-11] VITALS (8 sets, daily range): BP systolic 115–140; BP diastolic 53–79; PULSE 70–108; RESP 16–25; TEMP 98–99.2; O2SAT 94–97
[2016-11-11] MEDS: SODIUM CHLOR 0.9% 1000 ML INJ 1,000 ML IV SCH (02:13)
[2016-11-11] MEDS: CHLORHEXIDINE GLUCONATE 2 % 1 PACK (2 CLOTHS) TOP SCH (04:00)
[2016-11-11] MEDS: LABETALOL HCL 100 MG TAB PO SCH ×3 (05:05→21:39)
[2016-11-11] MEDS: SODIUM CHLORIDE 1 GRAM TAB PO SCH ×3 (05:09→21:39)
[2016-11-11] MEDS: PANTOPRAZOLE SODIUM 40 MG VIAL IV SCH (07:55)
[2016-11-11] MEDS: hydrALAZINE HCL 50 MG TAB PO SCH ×2 (07:55→21:39)
[2016-11-11] MEDS: FLUDROCORTISONE ACETATE 0.1 MG TAB PO SCH ×2 (07:55→21:39)
[2016-11-11] MEDS: PRAVASTATIN SOD 40 MG TAB PO SCH (07:55)
[2016-11-11] MEDS: levETIRAcetam INJ 500 MG in SODIUM CHLORIDE 0.9% INJ 100 ML IV SCH ×2 (07:55→21:39)
[2016-11-11] MEDS: QUEtiapine FUMARATE 25 MG TAB PO SCH ×2 (07:56→11:10)
[2016-11-11] MEDS: NYSTATIN 100,000 U/GM PWD 15 GM BTL TOPICAL SCH ×3 (07:56→18:00)
[2016-11-11] MEDS: LACTOBACILLUS ACIDOPHILUS TAB PO SCH ×2 (07:56→21:39)
[2016-11-11] MEDS: SODIUM CHLORIDE 0.9% FLUSH 10 ML FLUSH IV FLUSH SCH (07:56)
[2016-11-11] MEDS: metroNIDAZOLE 500 MG TAB PO SCH ×2 (07:56→15:52)
[2016-11-11] MEDS: NYSTAT/DIPHENHY/LIDO MOUTHWASH (Adult) 120ML SWISH-SWAL SCH ×4 (07:56→21:39)
[2016-11-11] MEDS: amLODIPine BESYLATE 5 MG TAB PO SCH (07:56)
--- NOTE | 2016-11-11 08:44 | HHI.NSPN ---
(Meir Sánchez KENNEL HAND) Note Status Status: Progress Note (Meir Sánchez) Interval History Interval History 51 year old male presents with being brought in as a trauma alert due to a head injury with altered mental status and a diminished GCS. The patient was in the bathroom and fell and hit his head. This was an unwitnessed fall. According to the patient's the patient had been unresponsive for approximately 15 minutes by the time ambulance services arrived. When they arrived the patient was noted to be a GCS of 14, however his mentation would wax and wane and go down as low as 3 again. On arrival to the emergency department he felt extremely nauseated. The CT of the head revealed diffuse subarachnoid bleed. Emergently intubated in the trauma bay. Possible seizure activity. Intubated in the emergency room. 10/05/16: Endovascular coiling 10/07/16 rinse intubated and sedated. Ventriculostomy in place 10/09/16: Remains intubated and sedated. Increased agitation with attempts at sedation vacation 10/17/16: Pupils 2 mm. Intubated and sedated. Somewhat more responsive with decreased sedation. External ventricular drain and closed to reservoir again today. 10/19/16: TCD with vasospasm, to angio with 10 mg Verapamil IA given. 10/20/16: Patient with fevers up to 102.8 per Nursing and cultures sent, Nursing reports CSF milky & with sediment. TCD being repeated this afternoon due to vast difference from that done this morning and yesterday. Film Tests Checker increased SBP parameters to 180-200 mm Hg to help overcome vasospasms. No increase in ICP. 10/21/16: Still with elevated temp but not as high. TCD yesterday demonstrated resolution of vasospasms but today it demonstrated a right SRI vasospasm. Patient with facial grimacing and attempted eye opening. CSF specimen sent yesterday w/o any organisms or WBCs seen on Gram stain. 10/23/16: Trach done 10/24/16: PEG done at bedside prior to being seen. Nursing reports prior to sedation he was following commands to all extremities although right was weaker. Mild vasospasm per TCD. 10/25/16: No evident distress. Noted to move BLE & slight LUE spontaneously. Did open eyes partially after having been stimulated. TCD being done. 10/26/16: No evident distress, attempted eye opening to verbal & attempted to follow some commands, some spontaneous movements noted BLE & LUE. TCD being done. 10/27/16: No apparent distress, no eye opening, follows some commands. 10/28/16: Remains tracheed, NAD, follows some commands, spontaneous movement of BLE & LUE noted. 10/29/16: Remains stable follows some commands, spontaneous movement of BLE & LUE noted 10/31/16: Patient trached and on T-piece when seen, follows commands, spontaneous movement of extremities noted. Did attempt to mouth words. 11/01/16: Patient doing well, on T-piece, follows commands, moving both feet spontaneously. Nursing reports he is intermittently following command and mouthing words. 11/02/16: Patient continues to do well, on T-piece, follows some commands, he does turn his head in direction of practitioner's voice. 11/03/16: Patient doing quite well today, on T-piece, follows commands, opens eyes briefly and holds up two fingers on left hand to command and tries with right. 11/04/16: Patient initially seen this morning with Therapy at the bedside. He had his eyes open at the time and would do a hand squeeze to command. When seen later he would not open his eyes but did follow commands and was able to show two fingers with each hand to command. Nursing reported that the patient mouthed that the RUE was not working. 6: His mental status is improving, he follows commands 4. He is awaiting transfer to skilled nursing care facility. No acute events overnight. 7: slightly restless today, has transfer order out of unit pending. no changes to neuro checks overnight. 58: Patient doing well, follows some simple commands but not consistently 5: Patient remains stable, eyes are open, he nods yes when asked if he has a headache. CTA brain yesterday demonstrates enlarging ventricles with periventricular hypodensity characteristic of developing hydrocephalus. 5: Patient stable, does not open eyes to verbal stimuli but does follow commands. 11/10: Patient with stable neurological function. His eyes were initially open when seen but he kept them closed when examined although he did follow other commands. Infectious Disease saw the patient yesterday for a questionable drug- induced rash and signed off. Later in the day the patient had a positive PCR for Clostridium difficile and treatment was started. 11/11: Patient continues to be stable neurologically. He is seen spontaneously moving the right leg. (Meir Sánchez) Labs, Micro, & Vital Signs Constitutional Vital Signs Date Time Temp Pulse Resp B/P Pulse Ox O2 Delivery O2 Flow Rate FiO2 11/11/16 04:00 98.0 70 115/53 11/11/16 04:00 97 11/11/16 00:00 99.2 95 16 95 11/11/16 00:00 97 11/10/16 20:00 97 11/10/16 20:00 98.5 97 16 98 11/10/16 19:02 95 T-piece 5.00 28 11/10/16 19:00 94 T-Piece 4.00 28 11/10/16 16:00 107 11/10/16 16:00 98.4 100 22 140/84 96 11/10/16 12:00 97.7 98 27 138/81 96 11/10/16 12:00 107 11/11/16 06:59 Intake Total 1979 ml Output Total 2200 ml Balance -221 ml (Meir Sánchez) Review of Systems/Exam ROS Unable to obtain ROS due to being trached. It appears he shakes his head "no" when asked if he has a headache. Exam Resp: Essentially clear breath sounds bilaterally, equal excursion, non-laboured , trached & on T-piece. CV: S1S2 w/RRR w/o M/G/R, radial & pedal pulses 2+ bilaterally, cap refill < 2 sec. Monitor is sinus tachycardia (101-102) w/o any ectopy noted GI: Abdomen soft, nontender, bowel sounds all quads, PEG tube w/enteral feeds going, fecal mgmt system in place. : Paul cath to BSD. Appears to have scrotal & groin fungal infection, skin beefy red in appearance. Neuro: Patient had his left eye open when seen and appears to try and open the right. 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 (Meir Sánchez) Medications Current Medications Current Medications Medications (Trade) Dose Ordered Sig/Nava Route Start Time Stop Time Status Last Admin (Tylenol) 650 mg Q6H PRN PO 10/05/16 02:45 11/07/16 21:49 (Protonix Inj) 40 mg DAILY IV 10/05/16 09:00 11/11/16 07:55 (Tears Naturale Opth Soln) 1 drop TID EACH EYE 10/05/16 09:00 11/11/16 09:00 (Zofran Inj) 4 mg Q6H PRN IV 10/05/16 02:45 11/06/16 20:58 Miscellaneous Information 1 Q361D XX 10/05/16 02:45 10/05/16 02:45 (Chlorhexidine 2% Cloth) Taper DAILY@04 TOP 10/05/16 04:00 10/01/17 03:59 11/11/16 04:00 Chlorhexidine Gluconate 3 pack 3 pack UNSCH PRN TOP 10/05/16 02:45 (Keppra Inj/NS Inj) 105 ml @ 420 mls/hr Q12HR IV 10/05/16 09:00 11/11/16 07:55 (Pravachol) 40 mg DAILY PO 10/05/16 09:00 11/11/16 07:55 (NS Flush) See Protocol DAILY IV FLUSH 10/07/16 09:00 11/11/16 07:56 (NS Flush) See Protocol UNSCH PRN IV FLUSH 10/06/16 12:00 Sodium Chloride UNSCH PRN IV FLUSH 10/06/16 12:00 11/04/16 20:46 Norepinephrine Bitartrate 4 mg/ Sodium Chloride 254 ml @ 0 mls/hr TITRATE IV 10/06/16 18:00 10/28/16 20:14 (NS 1000 ml Inj) 1,000 ml @ 60 mls/hr [id number] IV 10/21/16 08:30 5/12/17 02:13 (Sodium Chloride) 3 gm Q8HR PO 10/22/16 14:00 11/11/16 05:09 (Florinef) 0.2 mg Q12HR PO 10/22/16 21:00 11/11/16 07:55 Enoxaparin Sodium 40 mg 40 mg Q24H SQ 10/23/16 21:00 Hold 11/08/16 21:06 Potassium Phosphate 30 mmol/ Sodium Chloride 260 ml @ 42 mls/hr UNSCH PRN IV 10/24/16 15:15 Potassium Chloride 100 ml @ 50 mls/hr Q2H PRN IV 11/03/16 05:15 11/08/16 01:55 (KCl 20 Meq Premix Inj) 100 ml @ 50 mls/hr Q2H PRN IV 11/03/16 05:15 Potassium Bicarb/ Potassium Chloride 50 meq 50 meq UNSCH PRN PO 11/03/16 05:15 Potassium Chloride 100 ml @ 25 mls/hr UNSCH PRN IV 11/03/16 05:15 11/05/16 04:42 Potassium Chloride 100 ml @ 50 mls/hr Q2H PRN IV 11/03/16 05:15 (Magnesium Sulfate Inj/NS Inj) 100 ml @ 50 mls/hr UNSCH PRN IV 11/03/16 05:15 Magnesium Oxide 800 mg 800 mg UNSCH PRN PO 11/03/16 05:15 (Magnesium Sulfate Inj/NS Inj) 100 ml @ 50 mls/hr UNSCH PRN IV 11/03/16 05:15 Potassium Phosphate 2000 mg 2,000 mg Q4H PRN PO 11/03/16 05:15 (Sodium Phosphate Inj/NS 250 ml Inj) 250 ml @ 42 mls/hr UNSCH PRN IV 11/03/16 05:15 (K-Phos) 2,000 mg UNSCH PRN PO/TUBE 11/03/16 05:15 (Trandate) 100 mg Q8H PO 11/03/16 20:00 11/11/16 11:10 (Apresoline) 50 mg Q12HR PO 11/03/16 19:00 11/11/16 07:55 (Norvasc) 5 mg DAILY PO 11/04/16 09:00 11/11/16 07:56 (Mycostatin Powder) 1 applic TID TOPICAL 11/06/16 09:00 11/11/16 07:56 (Lactinex) 1 tab Q12HR PO 11/06/16 21:00 11/11/16 07:56 (SEROquel) 25 mg BID@09,12 PO 11/07/16 09:00 11/11/16 11:10 (Magic Mouthwash Adult Liq) 5 ml QID SWISH-SWAL 11/06/16 18:00 11/16/16 17:59 11/11/16 07:56 (Colace Liq) 100 mg Q12H PRN G-TUBE 11/06/16 17:00 (Imodium) 2 mg UNSCH PRN PO 11/09/16 09:45 (Lomotil Tab) 1 tab Q6H PRN PO 11/09/16 09:45 (Flagyl) 500 mg Q8H PO 11/09/16 16:00 11/11/16 07:56 (Meir Sánchez) Medical Decision Making MDM Remarks 1. Neurological function stable 2. 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 Left basal ganglia region CVA primarily per CT 4. CSF cultures w/o any growth 5. Max temp 98.5 6. Enterobacter cloacae in sputum from 7. Hypokalemia, resolved 8. Hypernatremia 9. Hydrocephalus 10. Clostridium difficile infection (Meir Sánchez) Plan Plan Remarks Plan is to take patient to OR for a STIFF LEG DERRICK OPERATOR shunt next week due to C diff infection Cognitive/speech therapy eval & tx Activity OOB to cardiac chair Continue PT & OT Continue abx per Surgical Film Tests Checker Continue Keppra for probable seizure activity Okay for Lovenox from NSGY standpoint but will hold after 11/09 evening dose Ulcer prophylaxis Okay to keep SBP between 120-160 mm Hg (Meir Sánchez) Attending Statement I have personally seen and examined the patient on the date of this note. Pertinent documentation and study results have been reviewed by the undersigned. I have personally developed the treatment plan and performed medical decision making. Agree with findings, exam, and treatment plan as noted above. Plan to OR next week for STIFF LEG DERRICK OPERATOR shunt depending on clinical course, initial C. difficile treatment (Gino Mace MD) Meir SánchezP November 11, 2016 08:44 Gino Mace MD November 11, 2016 19:52
[2016-11-11] MEDS: ARTIFICIAL TEARS OPTH SOLN 15 ML BTL EACH EYE SCH ×3 (09:00→18:00)
--- NOTE | 2016-11-11 09:01 | HHI.PR ---
Subjective Remarks He is in bed appears in not acute distress. He copious diarrhea. Poor historian. Follows commands. Has no complaints at this time. Shunt postponed per family/patient request Objective Vitals Vital Signs Date Time Temp Pulse Resp B/P Pulse Ox O2 Delivery O2 Flow Rate FiO2 11/11/16 04:00 98.0 70 115/53 11/11/16 04:00 97 11/11/16 00:00 99.2 95 16 95 11/11/16 00:00 97 11/10/16 20:00 97 11/10/16 20:00 98.5 97 16 98 11/10/16 19:02 95 T-piece 5.00 28 11/10/16 19:00 94 T-Piece 4.00 28 11/10/16 16:00 107 11/10/16 16:00 98.4 100 22 140/84 96 11/10/16 12:00 97.7 98 27 138/81 96 11/10/16 12:00 107 I/O 11/10/16 11/10/16 11/10/16 11/11/16 11/11/16 11/11/16 07:00 15:00 23:00 07:00 15:00 23:00 Intake Total 1913 ml 455 ml 910 ml 614 ml Output Total 1695 ml 1100 ml 700 ml 400 ml Balance 218 ml -645 ml 210 ml 214 ml IV Total 1425 ml 316 ml 564 ml 257 ml Tube Feeding 488 ml 139 ml 346 ml 357 ml Output Urine Total 1225 ml 1000 ml 650 ml 350 ml Stool Total 470 ml 100 ml 50 ml 50 ml # Voids 1 1 Result Diagram: 11/08/165 11/08/16 0445 Objective Remarks GENERAL: Middle-aged male lying in bed, s/p trach. Less agitated, following commands, takes time to answer questions., Appears chronically ill patient. SKIN: Dry. Oral thrush improving. Noted rash on LE and upper extremities, with red borders, serpentiforn rash, raised and red borders. HEAD: Normocephalic. EYES: Pupils are 2 mm and reactive bilaterally. NECK: Supple, trachea midline. Trach site clean, dry. CARDIOVASCULAR: Regular rate and rhythm. No JVD. RESPIRATORY:On Tp today, Breath sounds equal bilaterally. Clear, no wheezes or crackles. Good bilateral excursions. Comfortable. GASTROINTESTINAL: Abdomen soft, non-tender, nondistended. BS active. No guarding. EXTREMITIES: Nonfocal clubbing cyanosis or edema, well perfused. NEURO: Partial eye opening to sternal rub. Follows commands in bilateral upper and lower extremities. Withdraws to pain A/P Problem List: (1) 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 ICD Code: I60.8 Status: Acute (2) Hypertension ICD Code: I10 Status: Acute (3) Major neurocognitive disorder due to vascular disease, without behavioral disturbance, severe ICD Code: F01.50 Status: Acute Assessment and Plan 51yM with aneurysmal SAH, post-bleed day 23, s/p basilar artery coiling 10/05. S/ p IA Verapamil 10/15 and 10/19 for cerebral vasospasm. There is some improvement in encephalopathy, acute hypoxic respiratory failure. Resolving sepsis. critically ill. Now in possible cerebral salt wasting. Continue salt tabs, 3% saline, florinef, and NS 150 ml per hour. strict I/Os. TCDs per N/S. s/p Trach 10/23 and PEG 10/24. Also continues to grow Enterobacter in the sputum With hydrocephalus plan for shunt per [facility]. postponed per patient/family request until diarrhea resolves Plan: Neuro: Acute encephalopathy Aneurysmal Subarachnoid bleed 10/05, Basilar Aneurysm. Thalamic infarct Cerebral Vasospasm Developing Hydrocephalus. Neurosurgery plans for shunt 11/10/16 - Núñez Veliz 5 Lucas grade 3. - Basilar tip coiled. - Nimodipine. Status post intra-arterial verapamil for vasospasm on 10/15, 10/19 - Pravachol - SBP target reduced by Dr. Mace to 120-160. - TCD's per N/S Dr Mace. No recent vasospasm - Neuro exam improving, weakly following commands all 4 ext - Agitated requiring restraints, start seroquel. - CT head 11/07 16 reviewed. Enlarging ventricles with increasing periventricular hypodensity characteristic of developing hydrocephalus. Left thalamic infarct, minimal hemorrhage in the right sylvian fissure and minimal blood in the ventricles is again noted. No evidence of new infarct or parenchymal hemorrhage. Respiratory: Acute Hypoxic and Hypercarbic Respiratory Failure - Intubated for airway protection - s/p trach 10/23 now on CPAP/intermittent TP - Tolerating TP 2-3 hours per day - DuoNeb's as needed for wheezing, start scheduled DuoNeb as well T-piece well tolerated. CV: Septic Shock- resolved. - goal SBP 120-[address] mace - Off Levophed -Resolved Renal: Possible Cerebral Salt Wasting - UO has decreased now to normal range. - Goal euvolemia - Paul for accurate I/Os Strict I/Os - NaCl tabs 3gm q8h - Florinef 0.2mg q12h - NS @ 120 ml per hour 10/30. DC 3% - strict I/Os q1h - urine studies 10/21 consistent with cerebral salt wasting: at that time was patient intravascularly hypovolemic on clinical exam - NaCl boluses as needed to maintain euvolemia. FEN/GI: Acute Protein Calorie Malnutrition- mild -- vital high protein 40mL/hr. -- daily BMP -- ICU electrolyte protocol. Oral thrush -- Add magic mouth wash Heme/ID: Sepsis ( tachy, leukocytosis,, fevers, poss PNA, UTI) Fever, Leukocytosis. Prior UTI. Pneumonia -- s/p full course abx -- 10/20 sputum culture- Enterobacter, some resistance. sensitive to Cefepime. -- 10/20 urine culture- NGTD -- 10/20 CSF: 0 wbc, glu 111, prot 27.8, culture NGTD -- 10/20 Blood cx: NGTD -- 10/21 CSF: NGTD. -- Dr. Mace d/c EVD 10/21 -- d/c d vancomycin and Flagyl. -- Anticipated completion of 10 day course of cefepime 2gm iv q8hr was on 10/29, repeat sputum cx GNR, ID pending. Continue cefepime for now -- Skin rash poss related to antibiotics vs parasite va fungal . Consult ID for further evaluation and treatment indications. -- Cdiff colitis: Start flagyl 500 mg TID Endocrine: Hyperglycemia of critical illness -- SSI Diarrhea/ fecal incontinence: Check C diff. Add antidiarrhea agents. Prophylaxis: - Teds SCDs - Started Lovenox per nsg 10/23/16 - Protonix IV DC plan: Pending improvement, also difficult placement. Hypertension control. Well diuresed. Attempting to rid bacterial bronchitis. Awaiting LTAC approval. Stable respiratory and hemodynamic function. Developing hydrocephalus 11/07/16 , neurosurgery evaluating for shunt placement, plan for shunt on Th 11/10/16, however patient with C diff colitis/diarrhea, started flagyl . Patient /family decided to postpone shunt at this time for next week. Hold transferring to the med/surg floor yet and DC at this time Discussed with the patient, nurse. Problem Qualifiers (1) Hypertension: Qualified Code: I10 - Essential hypertension Adele Cooper MD November 11, 2016 09:00
[2016-11-12] VITALS (11 sets, daily range): BP systolic 117–149; BP diastolic 73–87; PULSE 96–114; RESP 15–24; TEMP 98.2–98.8; O2SAT 93–97
[2016-11-12] MEDS: metroNIDAZOLE 500 MG TAB PO SCH ×3 (01:07→16:00)
[2016-11-12] MEDS: CHLORHEXIDINE GLUCONATE 2 % 1 PACK (2 CLOTHS) TOP SCH ×2 (04:00→21:39)
[2016-11-12] MEDS: LABETALOL HCL 100 MG TAB PO SCH ×3 (04:24→20:00)
[2016-11-12] MEDS: SODIUM CHLORIDE 1 GRAM TAB PO SCH ×3 (06:32→22:09)
[2016-11-12] MEDS: SODIUM CHLOR 0.9% 1000 ML INJ 1,000 ML IV SCH (07:50)
--- NOTE | 2016-11-12 08:14 | HHI.NSPN ---
(Tyrese Membreno) History Chief Complaint: s/p aneurysm coiling. (Tyrese Membreno) Interval History 51 year old male presents with being brought in as a trauma alert due to a head injury with altered mental status and a diminished GCS. The patient was in the bathroom and fell and hit his head. This was an unwitnessed fall. According to the patient's the patient had been unresponsive for approximately 15 minutes by the time ambulance services arrived. When they arrived the patient was noted to be a GCS of 14, however his mentation would wax and wane and go down as low as 3 again. On arrival to the emergency department he felt extremely nauseated. The CT of the head revealed diffuse subarachnoid bleed. Emergently intubated in the trauma bay. Possible seizure activity. Intubated in the emergency room. 10/05/16: Endovascular coiling 10/07/16 rinse intubated and sedated. Ventriculostomy in place 10/09/16: Remains intubated and sedated. Increased agitation with attempts at sedation vacation 10/17/16: Pupils 2 mm. Intubated and sedated. Somewhat more responsive with decreased sedation. External ventricular drain and closed to reservoir again today. 10/19/16: TCD with vasospasm, to angio with 10 mg Verapamil IA given. 10/20/16: Patient with fevers up to 102.8 per Nursing and cultures sent, Nursing reports CSF milky & with sediment. TCD being repeated this afternoon due to vast difference from that done this morning and yesterday. Retail Sales Associate Seasonal increased SBP parameters to 180-200 mm Hg to help overcome vasospasms. No increase in ICP. 10/21/16: Still with elevated temp but not as high. TCD yesterday demonstrated resolution of vasospasms but today it demonstrated a right SRI vasospasm. Patient with facial grimacing and attempted eye opening. CSF specimen sent yesterday w/o any organisms or WBCs seen on Gram stain. 10/23/16: Trach done 10/24/16: PEG done at bedside prior to being seen. Nursing reports prior to sedation he was following commands to all extremities although right was weaker. Mild vasospasm per TCD. 10/25/16: No evident distress. Noted to move BLE & slight LUE spontaneously. Did open eyes partially after having been stimulated. TCD being done. 10/26/16: No evident distress, attempted eye opening to verbal & attempted to follow some commands, some spontaneous movements noted BLE & LUE. TCD being done. 10/27/16: No apparent distress, no eye opening, follows some commands. 10/28/16: Remains tracheed, NAD, follows some commands, spontaneous movement of BLE & LUE noted. 10/29/16: Remains stable follows some commands, spontaneous movement of BLE & LUE noted 10/31/16: Patient trached and on T-piece when seen, follows commands, spontaneous movement of extremities noted. Did attempt to mouth words. 11/01/16: Patient doing well, on T-piece, follows commands, moving both feet spontaneously. Nursing reports he is intermittently following command and mouthing words. 11/02/16: Patient continues to do well, on T-piece, follows some commands, he does turn his head in direction of practitioner's voice. 11/03/16: Patient doing quite well today, on T-piece, follows commands, opens eyes briefly and holds up two fingers on left hand to command and tries with right. 11/04/16: Patient initially seen this morning with Therapy at the bedside. He had his eyes open at the time and would do a hand squeeze to command. When seen later he would not open his eyes but did follow commands and was able to show two fingers with each hand to command. Nursing reported that the patient mouthed that the RUE was not working. 6: His mental status is improving, he follows commands 4. He is awaiting transfer to detention care facility. No acute events overnight. 57: slightly restless today, has transfer order out of unit pending. no changes to neuro checks overnight. 58: Patient doing well, follows some simple commands but not consistently 5: Patient remains stable, eyes are open, he nods yes when asked if he has a headache. CTA brain yesterday demonstrates enlarging ventricles with periventricular hypodensity characteristic of developing hydrocephalus. 5: Patient stable, does not open eyes to verbal stimuli but does follow commands. 11/10: Patient with stable neurological function. His eyes were initially open when seen but he kept them closed when examined although he did follow other commands. Infectious Disease saw the patient yesterday for a questionable drug- induced rash and signed off. Later in the day the patient had a positive PCR for Clostridium difficile and treatment was started. 11/11: Patient continues to be stable neurologically. He is seen spontaneously moving the right leg. 11/12/16: Pt opens eyes. Nods head to questions. Denies headache. States he is cold. (Tyrese Membreno) Review of Systems General: Positive for: chills, Negative for: fever, insomnia Respiratory: Negative for: shortness of breath, cough, sputum Cardiovascular: Negative for: chest pain Gastrointestinal: Negative for: nausea, vomitting, constipation (Tyrese Membreno) Exam Results Vital Signs Date Time Temp Pulse Resp B/P Pulse Ox O2 Delivery O2 Flow Rate FiO2 11/12/16 04:00 98.5 104 22 143/87 94 11/11/16 22:24 T-piece 28 11/11/16 19:00 4.00 Intake and Output 11/11/16 11/11/16 11/12/16 08:00 16:00 00:00 Intake Total 614 ml 1005 ml 929 ml Output Total 400 ml 850 ml 670 ml Balance 214 ml 155 ml 259 ml (Tyrese Membreno) Physical Examination Resp: CTA bilaterally. Trach in place. Heart: NSR no murmurs Abd: Soft positive bs Skin: No cyanosis or erythema Muscle: Moves toes and floor associate bilaterally Neuro: Pt opens eyes to voice. Pupils 3 mm bilaterally. Follows some simple commands. Nods head to questions. (Tyrese Membreno) Lab, Micro, Other Results Last Impressions Head CT 11/07/16 0000 Signed Impressions: Service Date/Time: Monday, November 07, 2016 10:51 - CONCLUSION: Enlarging ventricles with increasing periventricular hypodensity characteristic of developing hydrocephalus. Left thalamic infarct, minimal hemorrhage in the right sylvian fissure and minimal blood in the ventricles is again noted. No evidence of new infarct or parenchymal hemorrhage. Leonel Alva MD Chest X-Ray 11/01/16 0600 Signed Impressions: Service Date/Time: Tuesday, November 01, 2016 04:37 - CONCLUSION: 1. No acute cardiopulmonary disease. Trevin De León MD Transcranial Doppler Study Complete 10/26/16 0700 Signed Impressions: Service Date/Time: Wednesday, October 26, 2016 08:20 - CONCLUSION: Minimal interval improvement with no evidence for vasospasm. Christian Song MD FACR Neck CTA 10/19/16 0000 Signed Impressions: Service Date/Time: Wednesday, October 19, 2016 14:19 - CONCLUSION: Negative for dissection or significant stenosis. Christian Song MD FACR Head CTA 10/19/16 0000 Signed Impressions: Service Date/Time: Wednesday, October 19, 2016 14:19 - CONCLUSION: 1. Interval development of significant vasospasm in the left MCA and SRI territories. 2. Mild vasospasm in the basilar artery.. Gume Mckeon MD Cerebral Arteriogram 10/19/16 0000 Signed Impressions: Service Date/Time: Wednesday, October 19, 2016 16:06 - CONCLUSION: 1. Vasospasm in the left MCA and SRI territories 2. Spasmolytic infusion, left internal carotid artery as above.. 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 Gume Mckeon MD Pelvis X-Ray 10/05/16 011 Signed Impressions: Service Date/Time: Wednesday, October 05, 2016 01:22 - CONCLUSION: Unremarkable examination of the pelvis. Ruben Acuña Jr., MD Chest CT 10/05/16109 Signed Impressions: Service Date/Time: Wednesday, October 05, 2016 01:46 - CONCLUSION: 1. No acute intrathoracic abnormality. 2. Bibasilar atelectasis. 3. Cardiomegaly. 4. Prior granulomatous disease. Ruben Acuña Jr., MD Cervical Spine CT 10/05/16109 Signed Impressions: Service Date/Time: Wednesday, October 05, 2016 01:40 - CONCLUSION: 1. No fracture or dislocation. 2. Multilevel degenerative changes. Ruben Acuña Jr., MD Abdomen/Pelvis CT 10/05/16 0110 Signed Impressions: Service Date/Time: Wednesday, October 05, 2016 01:46 - CONCLUSION: 1. No acute trauma. 2. Rounded area of decreased density involving the pancreatic head. I cannot completely exclude pancreatic head mass. At some point MRI of the pancreas is suggested to further evaluate. 3. Focal area of poor enhancement involving the left kidney. This may relate to an area of parenchymal scarring. I cannot completely exclude a mass. This can be further assessed with MRI as well. Ruben Acuña Jr., MD 11/11/16 11/11/16 11/12/16 15:00 23:00 07:00 Intake Total 1005 ml 929 ml 903 ml Output Total 850 ml 670 ml 630 ml Balance 155 ml 259 ml 273 ml IV Total 591 ml 522 ml 516 ml Tube Feeding 294 ml 287 ml 267 ml Other 120 ml 120 ml 120 ml Output Urine Total 750 ml 550 ml 550 ml Stool Total 100 ml 120 ml 80 ml (Tyrese Membreno) Medical Decision Making Impression and Plan 1. 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 Hydrocephalus 4. Clostridium difficile infection Plan Remarks Plan is to take patient to OR for a [employer] shunt next week due to C diff infection Cognitive/speech therapy eval & tx Activity OOB to cardiac chair Continue PT & OT Continue abx per Surgical Retail Sales Associate Seasonal Continue Keppra for probable seizure activity Okay for Lovenox from NSGY standpoint but will hold after 11/09 evening dose Ulcer prophylaxis Okay to keep SBP between 120-160 mm Hg (Tyrese Membreno) Attending Statement The exam, history, and the medical decision-making described in the above note were completed with the assistance of the mid-level provider. I reviewed and agree with the findings presented. I attest that I had a [id number] encounter with the patient on the same day, and personally performed and documented my assessment and findings in the medical record. (Reddy Eaton MD) Tyrese Membreno November 12, 2016 08:14 Reddy Eaton MD November 12, 2016 12:38
[2016-11-12] MEDS: LACTOBACILLUS ACIDOPHILUS TAB PO SCH ×2 (08:56→22:07)
[2016-11-12] MEDS: PANTOPRAZOLE SODIUM 40 MG VIAL IV SCH (08:56)
[2016-11-12] MEDS: amLODIPine BESYLATE 5 MG TAB PO SCH (08:56)
[2016-11-12] MEDS: levETIRAcetam INJ 500 MG in SODIUM CHLORIDE 0.9% INJ 100 ML IV SCH ×2 (08:56→22:07)
[2016-11-12] MEDS: PRAVASTATIN SOD 40 MG TAB PO SCH (08:57)
[2016-11-12] MEDS: QUEtiapine FUMARATE 25 MG TAB PO SCH ×2 (08:57→12:03)
[2016-11-12] MEDS: FLUDROCORTISONE ACETATE 0.1 MG TAB PO SCH ×2 (08:57→22:10)
[2016-11-12] MEDS: hydrALAZINE HCL 50 MG TAB PO SCH ×2 (08:57→22:08)
[2016-11-12] MEDS: NYSTAT/DIPHENHY/LIDO MOUTHWASH (Adult) 120ML SWISH-SWAL SCH ×4 (08:57→21:00)
[2016-11-12] MEDS: ARTIFICIAL TEARS OPTH SOLN 15 ML BTL EACH EYE SCH ×3 (08:58→17:35)
[2016-11-12] MEDS: NYSTATIN 100,000 U/GM PWD 15 GM BTL TOPICAL SCH ×3 (08:58→17:35)
[2016-11-12] MEDS: SODIUM CHLORIDE 0.9% FLUSH 10 ML FLUSH IV FLUSH SCH (08:58)
--- NOTE | 2016-11-12 15:56 | HHI.PR ---
Subjective Remarks Implants, appears sleepy, not much interruption today. Diarrhea is less. No fever or chills. He has no complaints at this time. He follows commands. He is a very poor historian Objective Vitals Vital Signs Date Time Temp Pulse Resp B/P Pulse Ox O2 Delivery O2 Flow Rate FiO2 11/12/16 10:00 96 11/12/16 08:30 93 T-piece 5.00 28 11/12/16 08:00 94 T-Piece 4.00 28 11/12/16 08:00 96 11/12/16 08:00 98.2 96 16 138/82 94 11/12/16 04:00 98.5 104 22 143/87 94 11/12/16 04:00 104 11/12/16 00:00 103 11/12/16 00:00 98.6 103 24 124/73 95 11/11/16 22:24 97 T-piece 28 11/11/16 20:00 104 11/11/16 20:00 98.3 104 25 140/78 97 11/11/16 19:00 99 T-Piece 4.00 28 11/11/16 16:53 94 T-piece 5.00 28 11/11/16 16:00 98.2 102 21 131/63 94 11/11/16 16:00 102 I/O 11/11/16 11/11/16 11/11/16 11/12/16 11/12/16 11/12/16 07:00 15:00 23:00 07:00 15:00 23:00 Intake Total 614 ml 1005 ml 929 ml 903 ml 964 ml Output Total 400 ml 850 ml 670 ml 630 ml 1050 ml Balance 214 ml 155 ml 259 ml 273 ml -86 ml IV Total 257 ml 591 ml 522 ml 516 ml 644 ml Tube Feeding 357 ml 294 ml 287 ml 267 ml 260 ml Other 120 ml 120 ml 120 ml 60 ml Output Urine Total 350 ml 750 ml 550 ml 550 ml 650 ml Stool Total 50 ml 100 ml 120 ml 80 ml 400 ml # Voids 1 Result Diagram: 11/08/16 0445 11/08/16 0445 Imaging Last Impressions Head CT 11/07/16 0000 Signed Impressions: Service Date/Time: Monday, November 07, 2016 10:51 - CONCLUSION: Enlarging ventricles with increasing periventricular hypodensity characteristic of developing hydrocephalus. Left thalamic infarct, minimal hemorrhage in the right sylvian fissure and minimal blood in the ventricles is again noted. No evidence of new infarct or parenchymal hemorrhage. Leonel Alva MD Chest X-Ray 11/01/16 0600 Signed Impressions: Service Date/Time: Tuesday, November 01, 2016 04:37 - CONCLUSION: 1. No acute cardiopulmonary disease. Trevin De León MD Transcranial Doppler Study Complete 10/26/16 0700 Signed Impressions: Service Date/Time: Wednesday, October 26, 2016 08:20 - CONCLUSION: Minimal interval improvement with no evidence for vasospasm. Christian Song MD FACR Neck CTA 10/19/16 0000 Signed Impressions: Service Date/Time: Wednesday, October 19, 2016 14:19 - CONCLUSION: Negative for dissection or significant stenosis. Christian Song MD FACR Head CTA 10/19/16 0000 Signed Impressions: Service Date/Time: Wednesday, October 19, 2016 14:19 - CONCLUSION: 1. Interval development of significant vasospasm in the left MCA and SRI territories. 2. Mild vasospasm in the basilar artery.. Gume Mckeon MD Cerebral Arteriogram 10/19/16 0000 Signed Impressions: Service Date/Time: Wednesday, October 19, 2016 16:06 - CONCLUSION: 1. Vasospasm in the left MCA and SRI territories 2. Spasmolytic infusion, left internal carotid artery as above.. 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 Gume Mckeon MD Pelvis X-Ray 10/05/16 0110 Signed Impressions: Service Date/Time: Wednesday, October 05, 2016 01:22 - CONCLUSION: Unremarkable examination of the pelvis. Ruben Acuña Jr., MD Chest CT 10/05/16 0110 Signed Impressions: Service Date/Time: Wednesday, October 05, 2016 01:46 - CONCLUSION: 1. No acute intrathoracic abnormality. 2. Bibasilar atelectasis. 3. Cardiomegaly. 4. Prior granulomatous disease. Ruben Acuña Jr., MD Cervical Spine CT 10/05/16109 Signed Impressions: Service Date/Time: Wednesday, October 05, 2016 01:40 - CONCLUSION: 1. No fracture or dislocation. 2. Multilevel degenerative changes. Ruben Acuña Jr., MD Abdomen/Pelvis CT 10/05/16109 Signed Impressions: Service Date/Time: Wednesday, October 05, 2016 01:46 - CONCLUSION: 1. No acute trauma. 2. Rounded area of decreased density involving the pancreatic head. I cannot completely exclude pancreatic head mass. At some point MRI of the pancreas is suggested to further evaluate. 3. Focal area of poor enhancement involving the left kidney. This may relate to an area of parenchymal scarring. I cannot completely exclude a mass. This can be further assessed with MRI as well. Ruben Acuña Jr., MD Objective Remarks GENERAL: Middle-aged male lying in bed, s/p trach. Less agitated, following commands, takes time to answer questions., Appears chronically ill patient. SKIN: Dry. Oral thrush improving. Noted rash on LE and upper extremities, with red borders, serpentiforn rash, raised and red borders. HEAD: Normocephalic. EYES: Pupils are 2 mm and reactive bilaterally. NECK: Supple, trachea midline. Trach site clean, dry. CARDIOVASCULAR: Regular rate and rhythm. No JVD. RESPIRATORY:On Tp today, Breath sounds equal bilaterally. Clear, no wheezes or crackles. Good bilateral excursions. Comfortable. GASTROINTESTINAL: Abdomen soft, non-tender, nondistended. BS active. No guarding. EXTREMITIES: Nonfocal clubbing cyanosis or edema, well perfused. NEURO: Partial eye opening to sternal rub. Follows commands in bilateral upper and lower extremities. Withdraws to pain A/P Problem List: (1) 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 ICD Code: I60.8 Status: Acute (2) Hypertension ICD Code: I10 Status: Acute (3) Major neurocognitive disorder due to vascular disease, without behavioral disturbance, severe ICD Code: F01.50 Status: Acute Assessment and Plan 51yM with aneurysmal SAH, post-bleed day 23, s/p basilar artery coiling 10/05. S/ p IA Verapamil 10/15 and 10/19 for cerebral vasospasm. There is some improvement in encephalopathy, acute hypoxic respiratory failure. Resolving sepsis. critically ill. Now in possible cerebral salt wasting. Continue salt tabs, 3% saline, florinef, and NS 150 ml per hour. strict I/Os. TCDs per N/S. s/p Trach 10/23 and PEG 10/24. Also continues to grow Enterobacter in the sputum With hydrocephalus plan for shunt per [facility]. postponed per patient/family request until diarrhea resolves Plan: Neuro: Acute encephalopathy Aneurysmal Subarachnoid bleed 10/05, Basilar Aneurysm. Thalamic infarct Cerebral Vasospasm Developing Hydrocephalus. Neurosurgery plans for shunt 11/10/16 - Núñez Veliz 5 Lucas grade 3. - Basilar tip coiled. - Nimodipine. Status post intra-arterial verapamil for vasospasm on 10/15, 10/19 - Pravachol - SBP target reduced by Dr. Mace to 120-160. - TCD's per N/S Dr Mcae. No recent vasospasm - Neuro exam improving, weakly following commands all 4 ext - Agitated requiring restraints, start seroquel. - CT head 11/07 16 reviewed. Enlarging ventricles with increasing periventricular hypodensity characteristic of developing hydrocephalus. Left thalamic infarct, minimal hemorrhage in the right sylvian fissure and minimal blood in the ventricles is again noted. No evidence of new infarct or parenchymal hemorrhage. Respiratory: Acute Hypoxic and Hypercarbic Respiratory Failure - Intubated for airway protection - s/p trach 10/23 now on CPAP/intermittent TP - Tolerating TP 2-3 hours per day - DuoNeb's as needed for wheezing, start scheduled DuoNeb as well T-piece well tolerated. CV: Septic Shock- resolved. - goal SBP 120-[address] mace - Off Levophed -Resolved Renal: Possible Cerebral Salt Wasting - UO has decreased now to normal range. - Goal euvolemia - Paul for accurate I/Os Strict I/Os - NaCl tabs 3gm q8h - Florinef 0.2mg q12h - NS @ 120 ml per hour 10/30. DC 3% - strict I/Os q1h - urine studies 10/21 consistent with cerebral salt wasting: at that time was patient intravascularly hypovolemic on clinical exam - NaCl boluses as needed to maintain euvolemia. FEN/GI: Acute Protein Calorie Malnutrition- mild -- vital high protein 40mL/hr. -- daily BMP -- ICU electrolyte protocol. Oral thrush -- Add magic mouth wash Heme/ID: Sepsis ( tachy, leukocytosis,, fevers, poss PNA, UTI) Fever, Leukocytosis. Prior UTI. Pneumonia -- s/p full course abx -- 10/20 sputum culture- Enterobacter, some resistance. sensitive to Cefepime. -- 10/20 urine culture- NGTD -- 10/20 CSF: 0 wbc, glu 111, prot 27.8, culture NGTD -- 10/20 Blood cx: NGTD -- 10/21 CSF: NGTD. -- Dr. Mace d/c EVD 10/21 -- d/c d vancomycin and Flagyl. -- Anticipated completion of 10 day course of cefepime 2gm iv q8hr was on 10/29, repeat sputum cx GNR, ID pending. Continue cefepime for now -- Skin rash poss related to antibiotics vs parasite va fungal . Consult ID for further evaluation and treatment indications. -- Cdiff colitis: Start flagyl 500 mg TID Endocrine: Hyperglycemia of critical illness -- SSI Diarrhea/ fecal incontinence: Check C diff. Add antidiarrhea agents. Prophylaxis: - Teds SCDs - Started Lovenox per nsg 10/23/16 - Protonix IV DC plan: Pending improvement, also difficult placement. Hypertension control. Well diuresed. Attempting to rid bacterial bronchitis. Awaiting LTAC approval. Stable respiratory and hemodynamic function. Developing hydrocephalus 11/07/16 , neurosurgery evaluating for shunt placement, plan for shunt on Th 11/10/16, however patient with C diff colitis/diarrhea, started flagyl . Patient /family decided to postpone shunt at this time for next week. Hold transferring to the med/surg floor yet and DC at this time Discussed with the patient, nurse. Problem Qualifiers (1) Hypertension: Qualified Code: I10 - Essential hypertension Adele Cooper MD November 12, 2016 15:56
[2016-11-12] MEDS: ENOXAPARIN SODIUM 40 MG/0.4 ML SYRINGE SQ SCH (22:07)
[2016-11-12] MEDS: ACETAMINOPHEN 325 MG TAB PO PRN (22:08)
[2016-11-13] VITALS (11 sets, daily range): BP systolic 98–142; BP diastolic 69–96; PULSE 78–109; RESP 16–37; TEMP 97.6–98.8; O2SAT 94–99
[2016-11-13] MEDS: LABETALOL HCL 100 MG TAB PO SCH ×3 (05:12→22:08)
[2016-11-13] MEDS: SODIUM CHLORIDE 1 GRAM TAB PO SCH ×3 (06:58→22:04)
--- NOTE | 2016-11-13 08:01 | HHI.NSPN ---
(Tyrese Membreno) History Chief Complaint: s/p aneurysm coiling. (Tyrese Membreno) Interval History 51 year old male presents with being brought in as a trauma alert due to a head injury with altered mental status and a diminished GCS. The patient was in the bathroom and fell and hit his head. This was an unwitnessed fall. According to the patient's the patient had been unresponsive for approximately 15 minutes by the time ambulance services arrived. When they arrived the patient was noted to be a GCS of 14, however his mentation would wax and wane and go down as low as 3 again. On arrival to the emergency department he felt extremely nauseated. The CT of the head revealed diffuse subarachnoid bleed. Emergently intubated in the trauma bay. Possible seizure activity. Intubated in the emergency room. 10/05/16: Endovascular coiling 10/07/16 rinse intubated and sedated. Ventriculostomy in place 10/09/16: Remains intubated and sedated. Increased agitation with attempts at sedation vacation 10/17/16: Pupils 2 mm. Intubated and sedated. Somewhat more responsive with decreased sedation. External ventricular drain and closed to reservoir again today. 10/19/16: TCD with vasospasm, to angio with 10 mg Verapamil IA given. 10/20/16: Patient with fevers up to 102.8 per Nursing and cultures sent, Nursing reports CSF milky & with sediment. TCD being repeated this afternoon due to vast difference from that done this morning and yesterday. [employer] Windows Engineer increased SBP parameters to 180-200 mm Hg to help overcome vasospasms. No increase in ICP. 10/21/16: Still with elevated temp but not as high. TCD yesterday demonstrated resolution of vasospasms but today it demonstrated a right SRI vasospasm. Patient with facial grimacing and attempted eye opening. CSF specimen sent yesterday w/o any organisms or WBCs seen on Gram stain. 10/23/16: Trach done 10/24/16: PEG done at bedside prior to being seen. Nursing reports prior to sedation he was following commands to all extremities although right was weaker. Mild vasospasm per TCD. 10/25/16: No evident distress. Noted to move BLE & slight LUE spontaneously. Did open eyes partially after having been stimulated. TCD being done. 10/26/16: No evident distress, attempted eye opening to verbal & attempted to follow some commands, some spontaneous movements noted BLE & LUE. TCD being done. 10/27/16: No apparent distress, no eye opening, follows some commands. 10/28/16: Remains tracheed, NAD, follows some commands, spontaneous movement of BLE & LUE noted. 10/29/16: Remains stable follows some commands, spontaneous movement of BLE & LUE noted 10/31/16: Patient trached and on T-piece when seen, follows commands, spontaneous movement of extremities noted. Did attempt to mouth words. 11/01/16: Patient doing well, on T-piece, follows commands, moving both feet spontaneously. Nursing reports he is intermittently following command and mouthing words. 11/02/16: Patient continues to do well, on T-piece, follows some commands, he does turn his head in direction of practitioner's voice. 11/03/16: Patient doing quite well today, on T-piece, follows commands, opens eyes briefly and holds up two fingers on left hand to command and tries with right. 11/04/16: Patient initially seen this morning with Therapy at the bedside. He had his eyes open at the time and would do a hand squeeze to command. When seen later he would not open his eyes but did follow commands and was able to show two fingers with each hand to command. Nursing reported that the patient mouthed that the RUE was not working. 6: His mental status is improving, he follows commands 4. He is awaiting transfer to half-way care facility. No acute events overnight. 57: slightly restless today, has transfer order out of unit pending. no changes to neuro checks overnight. 58: Patient doing well, follows some simple commands but not consistently 5: Patient remains stable, eyes are open, he nods yes when asked if he has a headache. CTA brain yesterday demonstrates enlarging ventricles with periventricular hypodensity characteristic of developing hydrocephalus. 5: Patient stable, does not open eyes to verbal stimuli but does follow commands. 11/10: Patient with stable neurological function. His eyes were initially open when seen but he kept them closed when examined although he did follow other commands. Infectious Disease saw the patient yesterday for a questionable drug- induced rash and signed off. Later in the day the patient had a positive PCR for Clostridium difficile and treatment was started. 11/11: Patient continues to be stable neurologically. He is seen spontaneously moving the right leg. 11/12/16: Pt opens eyes. Nods head to questions. Denies headache. States he is cold. 11/13/16: Pt Not opening eyes. Not following commands. Mouths ouch to pain. Spontaneously moves LEs intermittently. (Tyrese Membreno) System Review Comments Not able to obtain given clinical exam. (Tyrese Membreno) Exam Results Vital Signs Date Time Temp Pulse Resp B/P Pulse Ox O2 Delivery O2 Flow Rate FiO2 11/13/16 04:00 103 11/13/16 04:00 97.6 16 112/73 99 11/12/16 22:07 T-piece 28 11/12/16 08:30 5.00 Intake and Output 11/12/16 11/12/16 11/13/16 08:00 16:00 00:00 Intake Total 903 ml 964 ml 750 ml Output Total 630 ml 1050 ml 620 ml Balance 273 ml -86 ml 130 ml (Tyrese Membreno) Physical Examination Resp: CTA bilaterally. Trach in place. Heart: NSR no murmurs Abd: Soft positive bs Skin: No cyanosis or erythema Muscle: Not following commands for muscle testing this morning. Neuro: Pt not opening eyes. Pupils 3 mm bilaterally. Not following commands this morning. (Tyrese Membreno) Lab, Micro, Other Results 11/12/16 11/12/16 11/13/16 15:00 23:00 07:00 Intake Total 964 ml 750 ml 970 ml Output Total 1050 ml 620 ml 52 ml Balance -86 ml 130 ml 918 ml Intake Oral 0 ml 0 ml IV Total 644 ml 330 ml 400 ml Tube Feeding 260 ml 300 ml 450 ml Other 60 ml 120 ml 120 ml Output Urine Total 650 ml 600 ml 50 ml Stool Total 400 ml 20 ml 2 ml (Tyrese Membreno) Medical Decision Making Impression and Plan 1. 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 Hydrocephalus 4. Clostridium difficile infection Plan Remarks Plan is to take patient to OR for a GEOGRAPHIC INFORMATION SYSTEM ANALYST shunt next week due to C diff infection Cognitive/speech therapy eval & tx Activity OOB to cardiac chair Continue PT & OT Continue abx per Surgical [employer] Windows Engineer Continue Keppra for probable seizure activity Okay for Lovenox from NSGY standpoint but will hold after 11/09 evening dose Ulcer prophylaxis Okay to keep SBP between 120-160 mm Hg (Tyrese Membreno) Attending Statement The exam, history, and the medical decision-making described in the above note were completed with the assistance of the mid-level provider. I reviewed and agree with the findings presented. I attest that I had a [id number] encounter with the patient on the same day, and personally performed and documented my assessment and findings in the medical record. (Reddy Eaton MD) Tyrese Membreno November 13, 2016 08:01 Reddy Eaton MD November 13, 2016 11:22
[2016-11-13] MEDS: hydrALAZINE HCL 50 MG TAB PO SCH ×2 (09:00→22:04)
[2016-11-13] MEDS: levETIRAcetam INJ 500 MG in SODIUM CHLORIDE 0.9% INJ 100 ML IV SCH ×2 (09:15→22:08)
[2016-11-13] MEDS: FLUDROCORTISONE ACETATE 0.1 MG TAB PO SCH ×2 (09:15→22:09)
[2016-11-13] MEDS: PRAVASTATIN SOD 40 MG TAB PO SCH (09:15)
[2016-11-13] MEDS: LACTOBACILLUS ACIDOPHILUS TAB PO SCH ×2 (09:15→22:10)
[2016-11-13] MEDS: QUEtiapine FUMARATE 25 MG TAB PO SCH ×2 (09:15→13:10)
[2016-11-13] MEDS: metroNIDAZOLE 500 MG TAB PO SCH ×3 (09:15→17:31)
[2016-11-13] MEDS: amLODIPine BESYLATE 5 MG TAB PO SCH (09:15)
[2016-11-13] MEDS: SODIUM CHLORIDE 0.9% FLUSH 10 ML FLUSH IV FLUSH SCH (09:16)
[2016-11-13] MEDS: PANTOPRAZOLE SODIUM 40 MG VIAL IV SCH (09:16)
[2016-11-13] MEDS: ARTIFICIAL TEARS OPTH SOLN 15 ML BTL EACH EYE SCH ×3 (09:16→17:32)
[2016-11-13] MEDS: NYSTATIN 100,000 U/GM PWD 15 GM BTL TOPICAL SCH ×3 (09:17→17:32)
[2016-11-13] MEDS: NYSTAT/DIPHENHY/LIDO MOUTHWASH (Adult) 120ML SWISH-SWAL SCH ×4 (09:17→21:00)
--- NOTE | 2016-11-13 12:42 | HHI.PR ---
Subjective Remarks Patient sleepy, arousable, poor historian. Appears in nad. Guzman is leaking, likely high pressure. Patient denies any n/v. Diarrhea improving. Objective Vitals Vital Signs Date Time Temp Pulse Resp B/P Pulse Ox O2 Delivery O2 Flow Rate FiO2 11/13/16 10:38 98 T-piece 5.00 28 11/13/16 04:00 103 11/13/16 04:00 97.6 109 16 112/73 99 11/13/16 00:00 104 11/13/16 00:00 98.8 102 37 122/69 95 11/12/16 23:08 25 11/12/16 22:07 95 T-piece 28 11/12/16 20:00 98 11/12/16 20:00 98.4 98 15 128/82 94 11/12/16 19:00 94 T-Piece 28 11/12/16 18:00 98 11/12/16 16:00 98.8 100 22 149/84 93 11/12/16 16:00 100 11/12/16 14:00 114 I/O 11/12/16 11/12/16 11/12/16 11/13/16 11/13/16 11/13/16 07:00 15:00 23:00 07:00 15:00 23:00 Intake Total 903 ml 964 ml 750 ml 970 ml Output Total 630 ml 1050 ml 620 ml 52 ml Balance 273 ml -86 ml 130 ml 918 ml Intake Oral 0 ml 0 ml IV Total 516 ml 644 ml 330 ml 400 ml Tube Feeding 267 ml 260 ml 300 ml 450 ml Other 120 ml 60 ml 120 ml 120 ml Output Urine Total 550 ml 650 ml 600 ml 50 ml Stool Total 80 ml 400 ml 20 ml 2 ml Imaging Last Impressions Head CT 11/07/16 0000 Signed Impressions: Service Date/Time: Monday, November 07, 2016 10:51 - CONCLUSION: Enlarging ventricles with increasing periventricular hypodensity characteristic of developing hydrocephalus. Left thalamic infarct, minimal hemorrhage in the right sylvian fissure and minimal blood in the ventricles is again noted. No evidence of new infarct or parenchymal hemorrhage. Leonel Alva MD Chest X-Ray 11/01/16 0600 Signed Impressions: Service Date/Time: Tuesday, November 01, 2016 04:37 - CONCLUSION: 1. No acute cardiopulmonary disease. Trevin De León MD Transcranial Doppler Study Complete 10/26/16 0700 Signed Impressions: Service Date/Time: Wednesday, October 26, 2016 08:20 - CONCLUSION: Minimal interval improvement with no evidence for vasospasm. Christian Song MD FACR Neck CTA 10/19/16 0000 Signed Impressions: Service Date/Time: Wednesday, October 19, 2016 14:19 - CONCLUSION: Negative for dissection or significant stenosis. Christian Song MD FACR Head CTA 10/19/16 0000 Signed Impressions: Service Date/Time: Wednesday, October 19, 2016 14:19 - CONCLUSION: 1. Interval development of significant vasospasm in the left MCA and SRI territories. 2. Mild vasospasm in the basilar artery.. Gume Mckeon MD Cerebral Arteriogram 10/19/16 0000 Signed Impressions: Service Date/Time: Wednesday, October 19, 2016 16:06 - CONCLUSION: 1. Vasospasm in the left MCA and SRI territories 2. Spasmolytic infusion, left internal carotid artery as above.. 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 Gume Mckeon MD Pelvis X-Ray 10/05/16109 Signed Impressions: Service Date/Time: Wednesday, October 05, 2016 01:22 - CONCLUSION: Unremarkable examination of the pelvis. Ruben Acuña Jr., MD Chest CT 10/05/16109 Signed Impressions: Service Date/Time: Wednesday, October 05, 2016 01:46 - CONCLUSION: 1. No acute intrathoracic abnormality. 2. Bibasilar atelectasis. 3. Cardiomegaly. 4. Prior granulomatous disease. Ruben Acuña Jr., MD Cervical Spine CT 10/05/16109 Signed Impressions: Service Date/Time: Wednesday, October 05, 2016 01:40 - CONCLUSION: 1. No fracture or dislocation. 2. Multilevel degenerative changes. Ruben Acuña Jr., MD Abdomen/Pelvis CT 10/05/16109 Signed Impressions: Service Date/Time: Wednesday, October 05, 2016 01:46 - CONCLUSION: 1. No acute trauma. 2. Rounded area of decreased density involving the pancreatic head. I cannot completely exclude pancreatic head mass. At some point MRI of the pancreas is suggested to further evaluate. 3. Focal area of poor enhancement involving the left kidney. This may relate to an area of parenchymal scarring. I cannot completely exclude a mass. This can be further assessed with MRI as well. Ruben Acuña Jr., MD Objective Remarks GENERAL: Middle-aged male lying in bed, s/p trach. Less agitated, following commands, takes time to answer questions., Appears chronically ill patient. SKIN: Dry. Oral thrush improving. Noted rash on LE and upper extremities, with red borders, serpentiforn rash, raised and red borders. HEAD: Normocephalic. EYES: Pupils are 2 mm and reactive bilaterally. NECK: Supple, trachea midline. Trach site clean, dry. CARDIOVASCULAR: Regular rate and rhythm. No JVD. RESPIRATORY:On Tp today, Breath sounds equal bilaterally. Clear, no wheezes or crackles. Good bilateral excursions. Comfortable. GASTROINTESTINAL: Abdomen soft, non-tender, nondistended. BS active. No guarding. EXTREMITIES: Nonfocal clubbing cyanosis or edema, well perfused. NEURO: Partial eye opening to sternal rub. Follows commands in bilateral upper and lower extremities. Withdraws to pain A/P Problem List: (1) 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 ICD Code: I60.8 Status: Acute (2) Hypertension ICD Code: I10 Status: Acute (3) Major neurocognitive disorder due to vascular disease, without behavioral disturbance, severe ICD Code: F01.50 Status: Acute Assessment and Plan 51yM with aneurysmal SAH, post-bleed day 23, s/p basilar artery coiling 10/05. S/ p IA Verapamil 10/15 and 10/19 for cerebral vasospasm. There is some improvement in encephalopathy, acute hypoxic respiratory failure. Resolving sepsis. critically ill. Now in possible cerebral salt wasting. Continue salt tabs, 3% saline, florinef, and NS 150 ml per hour. strict I/Os. TCDs per N/S. s/p Trach 10/23 and PEG 10/24. Also continues to grow Enterobacter in the sputum With hydrocephalus plan for shunt per Dr Eaton. postponed per patient/family request until diarrhea resolves Plan: Neuro: Acute encephalopathy Aneurysmal Subarachnoid bleed 10/05, Basilar Aneurysm. Thalamic infarct Cerebral Vasospasm Developing Hydrocephalus. Neurosurgery plans for shunt 11/10/16 - Núñez Veliz 5 Lucas grade 3. - Basilar tip coiled. - Nimodipine. Status post intra-arterial verapamil for vasospasm on 10/15, 10/19 - Pravachol - SBP target reduced by Dr. Mace to 120-160. - TCD's per N/S Dr Mace. No recent vasospasm - Neuro exam improving, weakly following commands all 4 ext - Agitated requiring restraints, start seroquel. - CT head 11/07 16 reviewed. Enlarging ventricles with increasing periventricular hypodensity characteristic of developing hydrocephalus. Left thalamic infarct, minimal hemorrhage in the right sylvian fissure and minimal blood in the ventricles is again noted. No evidence of new infarct or parenchymal hemorrhage. Respiratory: Acute Hypoxic and Hypercarbic Respiratory Failure - Intubated for airway protection - s/p trach 10/23 now on CPAP/intermittent TP - Tolerating TP 2-3 hours per day - DuoNeb's as needed for wheezing, start scheduled DuoNeb as well T-piece well tolerated. CV: Septic Shock- resolved. - goal SBP 120-[address] mace - Off Levophed -Resolved Renal: Possible Cerebral Salt Wasting - UO has decreased now to normal range. - Goal euvolemia - Guzman for accurate I/Os Strict I/Os - NaCl tabs 3gm q8h - Florinef 0.2mg q12h - NS @ 120 ml per hour 10/30. DC 3% - strict I/Os q1h - urine studies 10/21 consistent with cerebral salt wasting: at that time was patient intravascularly hypovolemic on clinical exam - NaCl boluses as needed to maintain euvolemia. FEN/GI: Acute Protein Calorie Malnutrition- mild -- vital high protein 40mL/hr. -- daily BMP -- ICU electrolyte protocol. Oral thrush -- Add magic mouth wash Heme/ID: Sepsis ( tachy, leukocytosis,, fevers, poss PNA, UTI) Fever, Leukocytosis. Prior UTI. Pneumonia -- s/p full course abx -- 10/20 sputum culture- Enterobacter, some resistance. sensitive to Cefepime. -- 10/20 urine culture- NGTD -- 10/20 CSF: 0 wbc, glu 111, prot 27.8, culture NGTD -- 10/20 Blood cx: NGTD -- 10/21 CSF: NGTD. -- Dr. Mace d/c EVD 10/21 -- d/c d vancomycin and Flagyl. -- Anticipated completion of 10 day course of cefepime 2gm iv q8hr was on 10/29, repeat sputum cx GNR, ID pending. Continue cefepime for now -- Skin rash poss related to antibiotics vs parasite va fungal . Consult ID for further evaluation and treatment indications. -- Cdiff colitis: Start flagyl 500 mg TID Endocrine: Hyperglycemia of critical illness -- SSI Diarrhea/ fecal incontinence: Check C diff. Add antidiarrhea agents. Prophylaxis: - Teds SCDs - Started Lovenox per nsg 10/23/16 - Protonix IV DC plan: Pending improvement, also difficult placement. Hypertension control. Well diuresed. Attempting to rid bacterial bronchitis. Awaiting LTAC approval. Stable respiratory and hemodynamic function. Developing hydrocephalus 11/07/16 , neurosurgery evaluating for shunt placement, plan for shunt on Th 11/10/16, however patient with C diff colitis/diarrhea, started flagyl . Patient /family decided to postpone shunt at this time for next week. Hold transferring to the med/surg floor yet and DC at this time 11/13 guzman is leaking poss high pressure. will change oley to see if improving otherwise arsenio start meds. Will check UA Discussed with the patient, nurse. Problem Qualifiers (1) Hypertension: Qualified Code: I10 - Essential hypertension Adele Cooper MD November 13, 2016 12:42
[2016-11-13] MEDS: SODIUM CHLOR 0.9% 1000 ML INJ 1,000 ML IV SCH (20:53)
[2016-11-13] MEDS: ENOXAPARIN SODIUM 40 MG/0.4 ML SYRINGE SQ SCH (22:08)
[2016-11-13] MEDS: ACETAMINOPHEN 325 MG TAB PO PRN (22:08)
[2016-11-14] VITALS (8 sets, daily range): BP systolic 119–148; BP diastolic 64–92; PULSE 82–99; RESP 18–26; TEMP 97.7–99.3; O2SAT 94–98
[2016-11-14] MEDS: metroNIDAZOLE 500 MG TAB PO SCH ×3 (00:06→16:53)
[2016-11-14] MEDS: CHLORHEXIDINE GLUCONATE 2 % 1 PACK (2 CLOTHS) TOP SCH (04:00)
[2016-11-14] MEDS: SODIUM CHLORIDE 1 GRAM TAB PO SCH ×3 (04:35→20:55)
[2016-11-14] MEDS: LABETALOL HCL 100 MG TAB PO SCH ×3 (04:35→20:54)
[2016-11-14 07:12] LABS: BACTERIA, URINE RARE /hpf; BILIRUBIN, URINE NEG (NEG); BLOOD, URINE NEG (NEG); CALCIUM OXALATE CRYSTALS,URINE RARE /hpf; GLUCOSE,URINE NEG (NEG); HYALINE CAST, URINE 11 /lpf (RARE); KETONE, URINE NEG (NEG); MUCUS URINE MOD /lpf (OCC); NITRITE,URINE NEG (NEG); TRANSITIONAL EPI CELLS, URINE <1 /hpf; URINE COLOR YELLOW (YELLW/STRAW); URINE LEUKOCYTE ESTERASE MOD (NEG)
[2016-11-14] MEDS: ARTIFICIAL TEARS OPTH SOLN 15 ML BTL EACH EYE SCH ×3 (09:00→16:53)
[2016-11-14] MEDS: NYSTATIN 100,000 U/GM PWD 15 GM BTL TOPICAL SCH ×3 (09:00→16:54)
--- NOTE | 2016-11-14 09:06 | HHI.NSPN ---
(Meir Sánchez OIL WELL CABLE TOOL DRILLER) Note Status Status: Progress Note (Meir Sánchez) Interval History Interval History 51 year old male presents with being brought in as a trauma alert due to a head injury with altered mental status and a diminished GCS. The patient was in the bathroom and fell and hit his head. This was an unwitnessed fall. According to the patient's the patient had been unresponsive for approximately 15 minutes by the time ambulance services arrived. When they arrived the patient was noted to be a GCS of 14, however his mentation would wax and wane and go down as low as 3 again. On arrival to the emergency department he felt extremely nauseated. The CT of the head revealed diffuse subarachnoid bleed. Emergently intubated in the trauma bay. Possible seizure activity. Intubated in the emergency room. 10/05/16: Endovascular coiling 10/07/16 rinse intubated and sedated. Ventriculostomy in place 10/09/16: Remains intubated and sedated. Increased agitation with attempts at sedation vacation 10/17/16: Pupils 2 mm. Intubated and sedated. Somewhat more responsive with decreased sedation. External ventricular drain and closed to reservoir again today. 10/19/16: TCD with vasospasm, to angio with 10 mg Verapamil IA given. 10/20/16: Patient with fevers up to 102.8 per Nursing and cultures sent, Nursing reports CSF milky & with sediment. TCD being repeated this afternoon due to vast difference from that done this morning and yesterday. Political Science Professor increased SBP parameters to 180-200 mm Hg to help overcome vasospasms. No increase in ICP. 10/21/16: Still with elevated temp but not as high. TCD yesterday demonstrated resolution of vasospasms but today it demonstrated a right SRI vasospasm. Patient with facial grimacing and attempted eye opening. CSF specimen sent yesterday w/o any organisms or WBCs seen on Gram stain. 10/23/16: Trach done 10/24/16: PEG done at bedside prior to being seen. Nursing reports prior to sedation he was following commands to all extremities although right was weaker. Mild vasospasm per TCD. 10/25/16: No evident distress. Noted to move BLE & slight LUE spontaneously. Did open eyes partially after having been stimulated. TCD being done. 10/26/16: No evident distress, attempted eye opening to verbal & attempted to follow some commands, some spontaneous movements noted BLE & LUE. TCD being done. 10/27/16: No apparent distress, no eye opening, follows some commands. 10/28/16: Remains tracheed, NAD, follows some commands, spontaneous movement of BLE & LUE noted. 10/29/16: Remains stable follows some commands, spontaneous movement of BLE & LUE noted 10/31/16: Patient trached and on T-piece when seen, follows commands, spontaneous movement of extremities noted. Did attempt to mouth words. 11/01/16: Patient doing well, on T-piece, follows commands, moving both feet spontaneously. Nursing reports he is intermittently following command and mouthing words. 11/02/16: Patient continues to do well, on T-piece, follows some commands, he does turn his head in direction of practitioner's voice. 11/03/16: Patient doing quite well today, on T-piece, follows commands, opens eyes briefly and holds up two fingers on left hand to command and tries with right. 11/04/16: Patient initially seen this morning with Therapy at the bedside. He had his eyes open at the time and would do a hand squeeze to command. When seen later he would not open his eyes but did follow commands and was able to show two fingers with each hand to command. Nursing reported that the patient mouthed that the RUE was not working. 6: His mental status is improving, he follows commands 4. He is awaiting transfer to [facility] care facility. No acute events overnight. 7: slightly restless today, has transfer order out of unit pending. no changes to neuro checks overnight. 58: Patient doing well, follows some simple commands but not consistently 5: Patient remains stable, eyes are open, he nods yes when asked if he has a headache. CTA brain yesterday demonstrates enlarging ventricles with periventricular hypodensity characteristic of developing hydrocephalus. 5: Patient stable, does not open eyes to verbal stimuli but does follow commands. 11/10: Patient with stable neurological function. His eyes were initially open when seen but he kept them closed when examined although he did follow other commands. Infectious Disease saw the patient yesterday for a questionable drug- induced rash and signed off. Later in the day the patient had a positive PCR for Clostridium difficile and treatment was started. 11/11: Patient continues to be stable neurologically. He is seen spontaneously moving the right leg. 11/12/16: Pt opens eyes. Nods head to questions. Denies headache. States he is cold. 11/13/16: Pt Not opening eyes. Not following commands. Mouths ouch to pain. Spontaneously moves LEs intermittently. 11/14: Awake & alert, tracks with his eyes. Moving all extremities spontaneously and follows commands. (Meir Sánchez) Labs, Micro, & Vital Signs Results Allergies Coded Allergies Type Severity Reaction Last Updated Verified Penicillin Allergy Unknown 10/06/16 Yes Sulfa Allergy Unknown 10/06/16 Yes 11/12////// 06:00 18:00 06:00 18:00 06:00 18:00 Intake Total 1832 ml 964 ml 1720 ml 1010 ml 1404 ml Output Total 1300 ml 1050 ml 672 ml 1200 ml 1750 ml Balance 532 ml -86 ml 1048 ml -190 ml -346 ml Intake Oral 0 ml 0 ml IV Total 1038 ml 644 ml 730 ml 630 ml 801 ml Tube Feeding 554 ml 260 ml 750 ml 320 ml 483 ml Other 240 ml 60 ml 240 ml 60 ml 120 ml Output Urine Total 1100 ml 650 ml 650 ml 600 ml 1700 ml Stool Total 200 ml 400 ml 22 ml 600 ml 50 ml Laboratory Tests Test 11/14/16 06:00 Urine Color YELLOW Urine Turbidity CLEAR Urine pH 6.0 Urine Specific Bryant 1.019 Urine Protein 30 mg/dL Urine Glucose (UA) NEG mg/dL Urine Ketones NEG mg/dL Urine Occult Blood NEG Urine Nitrite NEG Urine Bilirubin NEG Urine Urobilinogen LESS THAN 2.0 MG/DL Urine Leukocyte Esterase MOD Urine RBC 2 /hpf Urine WBC 12 /hpf Urine Transitional Epithelial <1 /hpf Cells Urine Calcium Oxalate Crystals RARE /hpf Urine Bacteria RARE /hpf Urine Hyaline Casts 11 /lpf Urine Mucus MOD /lpf Microscopic Urinalysis Comment CULTURE INDICATED Constitutional Vital Signs Date Time Temp Pulse Resp B/P Pulse Ox O2 Delivery O2 Flow Rate FiO2 11/14/16 08:28 98 T-piece 5.00 28 11/14/16 08:00 84 11/14/16 08:00 97.7 84 21 123/76 94 11/14/16 07:00 96 T-Piece 4.00 36 11/14/16 04:00 85 11/14/16 04:00 97.9 84 18 119/64 95 11/14/16 00:00 98.3 95 26 130/74 94 11/14/16 00:00 95 11/13/16 21:45 97 T-piece 97 11/13/16 20:00 103 11/13/16 20:00 98.3 97 26 142/82 97 11/13/16 19:00 96 T-Piece 4.00 28 11/13/16 18:00 94 11/13/16 16:00 94 11/13/16 16:00 98.8 94 23 141/82 97 11/13/16 14:00 78 11/13/16 12:00 98.2 81 19 98/96 96 11/13/16 12:00 81 11/13/16 10:38 98 T-piece 5.00 28 11/13/16 10:00 94 11/14/16 07:00 Intake Total 2414 ml Output Total 2950 ml Balance -536 ml (Meir Sánchez) Review of Systems/Exam ROS Unable to obtain ROS due to being trached. Exam Resp: Essentially clear breath sounds bilaterally, equal excursion, non-laboured , trached & on T-piece. CV: S1S2 w/RRR w/o M/G/R, radial & pedal pulses 2+ bilaterally, cap refill < 2 sec. Monitor is sinus tachycardia (low 100s) w/o any ectopy noted GI: Abdomen soft, nontender, bowel sounds all quads, PEG tube clamped. : Paul cath to BSD. Improving scrotal & groin fungal infection, pinkish in appearance. Neuro: Awake & alert. PERRLA, tracks. 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 (Meir Sánchez) Medications Current Medications Current Medications Medications (Trade) Dose Ordered Sig/Nava Route Start Time Stop Time Status Last Admin (Tylenol) 650 mg Q6H PRN PO 10/05/16 02:45 11/13/16 22:08 (Protonix Inj) 40 mg DAILY IV 10/05/16 09:00 11/13/16 09:16 (Tears Naturale Opth Soln) 1 drop TID EACH EYE 10/05/16 09:00 11/13/16 17:32 (Zofran Inj) 4 mg Q6H PRN IV 10/05/16 02:45 11/06/16 20:58 Miscellaneous Information 1 Q361D XX 10/05/16 02:45 10/05/16 02:45 (Chlorhexidine 2% Cloth) 3 pack Taper DAILY@04 TOP 10/05/16 04:00 10/01/17 03:59 11/14/16 04:00 Chlorhexidine Gluconate 3 pack 3 pack UNSCH PRN TOP 10/05/16 02:45 (Keppra Inj/NS Inj) 105 ml @ 420 mls/hr Q12HR IV 10/05/16 09:00 11/13/16 22:08 (Pravachol) 40 mg DAILY PO 10/05/16 09:00 11/13/16 09:15 (NS Flush) See Protocol DAILY IV FLUSH 10/07/16 09:00 11/13/16 09:16 (NS Flush) See Protocol UNSCH PRN IV FLUSH 10/06/16 12:00 Sodium Chloride UNSCH PRN IV FLUSH 10/06/16 12:00 11/04/16 20:46 Norepinephrine Bitartrate 4 mg/ Sodium Chloride 254 ml @ 0 mls/hr TITRATE IV 10/06/16 18:00 10/28/16 20:14 (NS 1000 ml Inj) 1,000 ml @ 60 mls/hr [id number] IV 10/21/16 08:30 11/13/16 20:53 (Sodium Chloride) 3 gm Q8HR PO 10/22/16 14:00 11/14/16 04:35 (Florinef) 0.2 mg Q12HR PO 10/22/16 21:00 11/13/16 22:09 Enoxaparin Sodium 40 mg 40 mg Q24H SQ 10/23/16 21:00 11/13/16 22:08 Potassium Phosphate 30 mmol/ Sodium Chloride 260 ml @ 42 mls/hr UNSCH PRN IV 10/24/16 15:15 Potassium Chloride 100 ml @ 50 mls/hr Q2H PRN IV 11/03/16 05:15 11/08/16 01:55 (KCl 20 Meq Premix Inj) 100 ml @ 50 mls/hr Q2H PRN IV 11/03/16 05:15 Potassium Bicarb/ Potassium Chloride 50 meq 50 meq UNSCH PRN PO 11/03/16 05:15 Potassium Chloride 100 ml @ 25 mls/hr UNSCH PRN IV 11/03/16 05:15 11/05/16 04:42 Potassium Chloride 100 ml @ 50 mls/hr Q2H PRN IV 11/03/16 05:15 (Magnesium Sulfate Inj/NS Inj) 100 ml @ 50 mls/hr UNSCH PRN IV 11/03/16 05:15 Magnesium Oxide 800 mg 800 mg UNSCH PRN PO 11/03/16 05:15 (Magnesium Sulfate Inj/NS Inj) 100 ml @ 50 mls/hr UNSCH PRN IV 11/03/16 05:15 Potassium Phosphate 2000 mg 2,000 mg Q4H PRN PO 11/03/16 05:15 (Sodium Phosphate Inj/NS 250 ml Inj) 250 ml @ 42 mls/hr UNSCH PRN IV 11/03/16 05:15 (K-Phos) 2,000 mg UNSCH PRN PO/TUBE 11/03/16 05:15 (Trandate) 100 mg Q8H PO 11/03/16 20:00 11/14/16 04:35 (Apresoline) 50 mg Q12HR PO 11/03/16 19:00 11/13/16 22:04 (Norvasc) 5 mg DAILY PO 11/04/16 09:00 11/13/16 09:15 (Mycostatin Powder) 1 applic TID TOPICAL 11/06/16 09:00 11/13/16 17:32 (Lactinex) 1 tab Q12HR PO 11/06/16 21:00 11/13/16 22:10 (SEROquel) 25 mg BID@09,12 PO 11/07/16 09:00 11/13/16 13:10 (Magic Mouthwash Adult Liq) 5 ml QID SWISH-SWAL 11/06/16 18:00 11/16/16 17:59 11/13/16 21:00 (Colace Liq) 100 mg Q12H PRN G-TUBE 11/06/16 17:00 (Imodium) 2 mg UNSCH PRN PO 11/09/16 09:45 (Lomotil Tab) 1 tab Q6H PRN PO 11/09/16 09:45 (Flagyl) 500 mg Q8H PO 11/09/16 16:00 11/14/16 00:06 (Meir Sánchez) Medical Decision Making MDM Remarks 1. Neurological function stable, slowly improving 2. 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 Left basal ganglia region CVA primarily per CT 4. CSF cultures w/o any growth 5. Max temp 98.8 6. Enterobacter cloacae in sputum from 7. Hypokalemia, resolved 8. Hypernatremia 9. Hydrocephalus 10. Clostridium difficile infection (Meir Sánchez) Plan Plan Remarks Plan is to take patient to OR for a MARINE ENGINEER shunt this week after tx'ing C diff infection Cognitive/speech therapy eval & tx Activity OOB to cardiac chair Continue PT & OT Continue abx per Surgical Political Science Professor Continue Keppra for probable seizure activity Okay for Lovenox from NSGY standpoint but will hold after 11/09 evening dose Ulcer prophylaxis Okay to keep SBP between 120-160 mm Hg (Meir Sánchez) Attending Statement I have personally seen and examined the patient on 11/14/16. Pertinent documentation and study results have been reviewed by the undersigned. I have personally developed the treatment plan and performed medical decision making. Agree with findings, exam, and treatment plan as noted above. Patient is quite a bit more alert and attempting to mobilize. Seems to respond appropriately to most questions and commands. Continuing treatment for C diff. His neurologic exam has improved over the past 2 or 3 days, and it appears reasonable to wait on ventriculoperitoneal shunt until the infection risk is reduced. (Gino Mace MD) Meir Sánchez November 14, 2016 09:06 Gino Mace MD November 15, 2016 00:35
[2016-11-14] MEDS: PRAVASTATIN SOD 40 MG TAB PO SCH (09:25)
[2016-11-14] MEDS: LACTOBACILLUS ACIDOPHILUS TAB PO SCH ×2 (09:25→20:54)
[2016-11-14] MEDS: FLUDROCORTISONE ACETATE 0.1 MG TAB PO SCH ×2 (09:26→20:54)
[2016-11-14] MEDS: PANTOPRAZOLE SODIUM 40 MG VIAL IV SCH (09:26)
[2016-11-14] MEDS: SODIUM CHLORIDE 0.9% FLUSH 10 ML FLUSH IV FLUSH SCH (09:26)
[2016-11-14] MEDS: amLODIPine BESYLATE 5 MG TAB PO SCH (09:26)
[2016-11-14] MEDS: QUEtiapine FUMARATE 25 MG TAB PO SCH ×2 (09:26→12:36)
[2016-11-14] MEDS: levETIRAcetam INJ 500 MG in SODIUM CHLORIDE 0.9% INJ 100 ML IV SCH ×2 (09:27→20:54)
--- NOTE | 2016-11-14 09:34 | HHI.PR ---
Subjective Remarks Patient is appears at his baseline. Per nurse he did not have much diarrhea overnight. No fever or chills. He has no complaints at this time is very poor historian keeps his eyes closed almost all the time, he follows commands Objective Vitals Vital Signs Date Time Temp Pulse Resp B/P Pulse Ox O2 Delivery O2 Flow Rate FiO2 11/14/16 08:28 98 T-piece 5.00 28 11/14/16 08:00 84 11/14/16 08:00 97.7 84 21 123/76 94 11/14/16 07:00 96 T-Piece 4.00 36 11/14/16 04:00 85 11/14/16 04:00 97.9 84 18 119/64 95 11/14/16 00:00 98.3 95 26 130/74 94 11/14/16 00:00 95 11/13/16 21:45 97 T-piece 97 11/13/16 20:00 103 11/13/16 20:00 98.3 97 26 142/82 97 11/13/16 19:00 96 T-Piece 4.00 28 11/13/16 18:00 94 11/13/16 16:00 94 11/13/16 16:00 98.8 94 23 141/82 97 11/13/16 14:00 78 11/13/16 12:00 98.2 81 19 98/96 96 11/13/16 12:00 81 11/13/16 10:38 98 T-piece 5.00 28 11/13/16 10:00 94 I/O 11/13/16 11/13/16 11/13/16 11/14/16 11/14/16 11/14/16 07:00 15:00 23:00 07:00 15:00 23:00 Intake Total 970 ml 1010 ml 700 ml 704 ml Output Total 52 ml 1200 ml 1400 ml 350 ml Balance 918 ml -190 ml -700 ml 354 ml Intake Oral 0 ml 0 ml IV Total 400 ml 630 ml 348 ml 453 ml Tube Feeding 450 ml 320 ml 292 ml 191 ml Other 120 ml 60 ml 60 ml 60 ml Output Urine Total 50 ml 600 ml 1350 ml 350 ml Stool Total 2 ml 600 ml 50 ml Imaging Last Impressions Head CT 11/07/16 0000 Signed Impressions: Service Date/Time: Monday, November 07, 2016 10:51 - CONCLUSION: Enlarging ventricles with increasing periventricular hypodensity characteristic of developing hydrocephalus. Left thalamic infarct, minimal hemorrhage in the right sylvian fissure and minimal blood in the ventricles is again noted. No evidence of new infarct or parenchymal hemorrhage. Leonel Alva MD Chest X-Ray 11/01/16 0600 Signed Impressions: Service Date/Time: Tuesday, November 01, 2016 04:37 - CONCLUSION: 1. No acute cardiopulmonary disease. Trevin De León MD Transcranial Doppler Study Complete 10/26/16 0700 Signed Impressions: Service Date/Time: Wednesday, October 26, 2016 08:20 - CONCLUSION: Minimal interval improvement with no evidence for vasospasm. Christian Song MD FACR Neck CTA 10/19/16 0000 Signed Impressions: Service Date/Time: Wednesday, October 19, 2016 14:19 - CONCLUSION: Negative for dissection or significant stenosis. Christian Song MD FACR Head CTA 10/19/16 0000 Signed Impressions: Service Date/Time: Wednesday, October 19, 2016 14:19 - CONCLUSION: 1. Interval development of significant vasospasm in the left MCA and SRI territories. 2. Mild vasospasm in the basilar artery.. Gume Mckeon MD Cerebral Arteriogram 10/19/16 0000 Signed Impressions: Service Date/Time: Wednesday, October 19, 2016 16:06 - CONCLUSION: 1. Vasospasm in the left MCA and SRI territories 2. Spasmolytic infusion, left internal carotid artery as above.. 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 Gume Mckeon MD Pelvis X-Ray 10/05/16 0110 Signed Impressions: Service Date/Time: Wednesday, October 05, 2016 01:22 - CONCLUSION: Unremarkable examination of the pelvis. Ruben Acuña Jr., MD Chest CT 10/05/16 0110 Signed Impressions: Service Date/Time: Wednesday, October 05, 2016 01:46 - CONCLUSION: 1. No acute intrathoracic abnormality. 2. Bibasilar atelectasis. 3. Cardiomegaly. 4. Prior granulomatous disease. Ruben Acuña Jr., MD Cervical Spine CT 10/05/16109 Signed Impressions: Service Date/Time: Wednesday, October 05, 2016 01:40 - CONCLUSION: 1. No fracture or dislocation. 2. Multilevel degenerative changes. Ruben Acuña Jr., MD Abdomen/Pelvis CT 10/05/16109 Signed Impressions: Service Date/Time: Wednesday, October 05, 2016 01:46 - CONCLUSION: 1. No acute trauma. 2. Rounded area of decreased density involving the pancreatic head. I cannot completely exclude pancreatic head mass. At some point MRI of the pancreas is suggested to further evaluate. 3. Focal area of poor enhancement involving the left kidney. This may relate to an area of parenchymal scarring. I cannot completely exclude a mass. This can be further assessed with MRI as well. Ruben Acuña Jr., MD Objective Remarks GENERAL: Middle-aged male lying in bed, s/p trach. Less agitated, following commands, takes time to answer questions., Appears chronically ill patient. SKIN: Dry. Oral thrush improving. Noted rash on LE and upper extremities, with red borders, serpentiforn rash, raised and red borders. HEAD: Normocephalic. EYES: Pupils are 2 mm and reactive bilaterally. NECK: Supple, trachea midline. Trach site clean, dry. CARDIOVASCULAR: Regular rate and rhythm. No JVD. RESPIRATORY:On Tp today, Breath sounds equal bilaterally. Clear, no wheezes or crackles. Good bilateral excursions. Comfortable. GASTROINTESTINAL: Abdomen soft, non-tender, nondistended. BS active. No guarding. EXTREMITIES: Nonfocal clubbing cyanosis or edema, well perfused. NEURO: Partial eye opening to sternal rub. Follows commands in bilateral upper and lower extremities. Withdraws to pain A/P Problem List: (1) 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 ICD Code: I60.8 Status: Acute (2) Hypertension ICD Code: I10 Status: Acute (3) Major neurocognitive disorder due to vascular disease, without behavioral disturbance, severe ICD Code: F01.50 Status: Acute Assessment and Plan 51yM with aneurysmal SAH, post-bleed day 23, s/p basilar artery coiling 10/05. S/ p IA Verapamil 10/15 and 10/19 for cerebral vasospasm. There is some improvement in encephalopathy, acute hypoxic respiratory failure. Resolving sepsis. critically ill. Now in possible cerebral salt wasting. Continue salt tabs, 3% saline, florinef, and NS 150 ml per hour. strict I/Os. TCDs per N/S. s/p Trach 10/23 and PEG 10/24. Also continues to grow Enterobacter in the sputum With hydrocephalus plan for shunt per Dr Eaton. postponed per patient/family request until diarrhea resolves Plan: Neuro: Acute encephalopathy Aneurysmal Subarachnoid bleed 10/05, Basilar Aneurysm. Thalamic infarct Cerebral Vasospasm Developing Hydrocephalus. Neurosurgery plans for shunt 11/10/16 - Núñez Veliz 5 Lucas grade 3. - Basilar tip coiled. - Nimodipine. Status post intra-arterial verapamil for vasospasm on 10/15, 10/19 - Pravachol - SBP target reduced by Dr. Mace to 120-160. - TCD's per N/S Dr Mace. No recent vasospasm - Neuro exam improving, weakly following commands all 4 ext - Agitated requiring restraints, start seroquel. - CT head 11/07 16 reviewed. Enlarging ventricles with increasing periventricular hypodensity characteristic of developing hydrocephalus. Left thalamic infarct, minimal hemorrhage in the right sylvian fissure and minimal blood in the ventricles is again noted. No evidence of new infarct or parenchymal hemorrhage. Respiratory: Acute Hypoxic and Hypercarbic Respiratory Failure - Intubated for airway protection - s/p trach 10/23 now on CPAP/intermittent TP - Tolerating TP 2-3 hours per day - DuoNeb's as needed for wheezing, start scheduled DuoNeb as well T-piece well tolerated. CV: Septic Shock- resolved. - goal SBP 120-[address] mace - Off Levophed -Resolved Renal: Possible Cerebral Salt Wasting - UO has decreased now to normal range. - Goal euvolemia - Guzman for accurate I/Os Strict I/Os - NaCl tabs 3gm q8h - Florinef 0.2mg q12h - NS @ 120 ml per hour 10/30. DC 3% - strict I/Os q1h - urine studies 10/21 consistent with cerebral salt wasting: at that time was patient intravascularly hypovolemic on clinical exam - NaCl boluses as needed to maintain euvolemia. FEN/GI: Acute Protein Calorie Malnutrition- mild -- vital high protein 40mL/hr. -- daily BMP -- ICU electrolyte protocol. Oral thrush -- Add magic mouth wash Heme/ID: Sepsis ( tachy, leukocytosis,, fevers, poss PNA, UTI) Fever, Leukocytosis. Prior UTI. Pneumonia -- s/p full course abx -- 10/20 sputum culture- Enterobacter, some resistance. sensitive to Cefepime. -- 10/20 urine culture- NGTD -- 10/20 CSF: 0 wbc, glu 111, prot 27.8, culture NGTD -- 10/20 Blood cx: NGTD -- 10/21 CSF: NGTD. -- Dr. Mace d/c EVD 10/21 -- d/c d vancomycin and Flagyl. -- Anticipated completion of 10 day course of cefepime 2gm iv q8hr was on 10/29, repeat sputum cx GNR, ID pending. Continue cefepime for now -- Skin rash poss related to antibiotics vs parasite va fungal . Consult ID for further evaluation and treatment indications. -- Cdiff colitis: Start flagyl 500 mg TID Endocrine: Hyperglycemia of critical illness -- SSI Diarrhea/ fecal incontinence: Check C diff. Add antidiarrhea agents. Prophylaxis: - Teds SCDs - Started Lovenox per nsg 10/23/16 - Protonix IV DC plan: Pending improvement, also difficult placement. Hypertension control. Well diuresed. Attempting to rid bacterial bronchitis. Awaiting LTAC approval. Stable respiratory and hemodynamic function. Developing hydrocephalus 11/07/16 , neurosurgery evaluating for shunt placement, plan for shunt on Th 11/10/16, however patient with C diff colitis/diarrhea, started flagyl . Patient /family decided to postpone shunt at this time for next week. Hold transferring to the med/surg floor yet and DC at this time 11/13 guzman is leaking poss high pressure. will change oley to see if improving otherwise arsenio start meds. Will check UA Discussed with the patient, nurse. Problem Qualifiers (1) Hypertension: Qualified Code: I10 - Essential hypertension Adele Cooper MD November 14, 2016 09:34
[2016-11-14] MEDS: hydrALAZINE HCL 50 MG TAB PO SCH ×2 (10:16→21:05)
[2016-11-14] MEDS: NYSTAT/DIPHENHY/LIDO MOUTHWASH (Adult) 120ML SWISH-SWAL SCH ×4 (10:16→20:55)
[2016-11-14] MEDS: SODIUM CHLOR 0.9% 1000 ML INJ 1,000 ML IV SCH (12:36)
[2016-11-14] MEDS: ENOXAPARIN SODIUM 40 MG/0.4 ML SYRINGE SQ SCH (20:54)
[2016-11-14] MEDS: LOPERAMIDE HCL 2 MG CAP PO PRN (23:00)
[2016-11-15] VITALS (10 sets, daily range): BP systolic 124–154; BP diastolic 67–83; PULSE 96–110; RESP 18–27; TEMP 98.5–99.4; O2SAT 92–99
[2016-11-15] MEDS: metroNIDAZOLE 500 MG TAB PO SCH ×4 (00:06→23:14)
[2016-11-15] MEDS: LABETALOL HCL 100 MG TAB PO SCH ×3 (04:40→20:13)
[2016-11-15] MEDS: SODIUM CHLORIDE 1 GRAM TAB PO SCH ×3 (04:42→20:42)
[2016-11-15] MEDS: CHLORHEXIDINE GLUCONATE 2 % 1 PACK (2 CLOTHS) TOP SCH (04:42)
[2016-11-15 06:27] LABS: AUTOMATED NEUTROPHIL # 6.6 TH/MM3 (1.8-7.7); BASOPHIL % 0.4 % (0.0-2.0); EOSINOPHIL # 0.2 TH/MM3 (0-0.4); EOSINOPHIL % 2.3 % (0.0-4.0); HEMATOCRIT 28.3 % (39.0-51.0); HEMOGLOBIN 9.2 GM/DL (13.0-17.0); LYMPH % 11.5 % (9.0-44.0); MEAN CELL VOLUME 86.3 FL (80.0-100.0); MEAN CORPUSCULAR HEMOGLOBIN 28.1 PG (27.0-34.0); MEAN CORPUSCULAR HGB CONC 32.6 % (32.0-36.0); MONOCYTE # 0.8 TH/MM3 (0-0.9); NEUT % 76.8 % (16.0-70.0); PLATELET COUNT 205 TH/MM3 (150-450); RED BLOOD COUNT 3.28 MIL/MM3 (4.50-5.90); RED CELL DISTRIBUTION WIDTH 14.9 % (11.6-17.2); WHITE BLOOD COUNT 8.6 TH/MM3 (4.0-11.0)
[2016-11-15 07:09] LABS: BICARBONATE 31.6 MEQ/L (21.0-32.0); CALCIUM 7.7 MG/DL (8.5-10.1); CREATININE 0.6 MG/DL (0.60-1.30); MAGNESIUM 1.8 MG/DL (1.5-2.5)
[2016-11-15] MEDS: SODIUM CHLOR 0.9% 1000 ML INJ 1,000 ML IV SCH ×2 (07:51→22:53)
[2016-11-15] MEDS: POTASSIUM CHLOR 40 MEQ PREMIX 100 ML IV PRN ×2 (07:51→09:08)
--- NOTE | 2016-11-15 07:58 | HHI.PR ---
Subjective Remarks Patient at baseline. Had one episode of diarrhea overnight. No nausea or vomiting. T piece in place. Low K , replaced Objective Vitals Vital Signs Date Time Temp Pulse Resp B/P Pulse Ox O2 Delivery O2 Flow Rate FiO2 11/15/16 04:00 98.8 110 22 136/69 97 11/15/16 04:00 108 11/15/16 00:00 104 11/15/16 00:00 99.4 102 20 142/83 92 11/14/16 20:23 96 T-piece 6.00 35 11/14/16 20:00 99.3 99 24 148/92 95 11/14/16 20:00 96 11/14/16 19:00 94 T-Piece 6.00 28 11/14/16 16:00 98 11/14/16 16:00 98.1 82 18 120/70 98 11/14/16 12:00 88 11/14/16 12:00 98.0 88 18 126/67 94 11/14/16 08:28 98 T-piece 5.00 28 11/14/16 08:00 84 11/14/16 08:00 97.7 84 21 123/76 94 I/O 11/14/16 11/14/16 11/14/16 11/15/16 11/15/16 11/15/16 07:00 15:00 23:00 07:00 15:00 23:00 Intake Total 704 ml 480 ml 1686 ml 600 ml Output Total 350 ml 525 ml 1000 ml 1350 ml Balance 354 ml -45 ml 686 ml -750 ml Intake Oral 60 ml IV Total 453 ml 340 ml 1186 ml 600 ml Tube Feeding 191 ml 80 ml 500 ml Other 60 ml Output Urine Total 350 ml 525 ml 1000 ml 1350 ml # Bowel Movements 1 Result Diagram: 11/15/16 0548 11/15/16 0548 Imaging Last Impressions Head CT 11/07/16 0000 Signed Impressions: Service Date/Time: Monday, November 07, 2016 10:51 - CONCLUSION: Enlarging ventricles with increasing periventricular hypodensity characteristic of developing hydrocephalus. Left thalamic infarct, minimal hemorrhage in the right sylvian fissure and minimal blood in the ventricles is again noted. No evidence of new infarct or parenchymal hemorrhage. Leonel Alva MD Chest X-Ray 11/01/16 0600 Signed Impressions: Service Date/Time: Tuesday, November 01, 2016 04:37 - CONCLUSION: 1. No acute cardiopulmonary disease. Trevin De León MD Transcranial Doppler Study Complete 10/26/16 0700 Signed Impressions: Service Date/Time: Wednesday, October 26, 2016 08:20 - CONCLUSION: Minimal interval improvement with no evidence for vasospasm. Christian Song MD FACR Neck CTA 10/19/16 0000 Signed Impressions: Service Date/Time: Wednesday, October 19, 2016 14:19 - CONCLUSION: Negative for dissection or significant stenosis. Christian Song MD FACR Head CTA 10/19/16 0000 Signed Impressions: Service Date/Time: Wednesday, October 19, 2016 14:19 - CONCLUSION: 1. Interval development of significant vasospasm in the left MCA and SRI territories. 2. Mild vasospasm in the basilar artery.. Gume Mckeon MD Cerebral Arteriogram 10/19/16 0000 Signed Impressions: Service Date/Time: Wednesday, October 19, 2016 16:06 - CONCLUSION: 1. Vasospasm in the left MCA and SRI territories 2. Spasmolytic infusion, left internal carotid artery as above.. 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 Gume Mckeon MD Pelvis X-Ray 10/05/16 011 Signed Impressions: Service Date/Time: Wednesday, October 05, 2016 01:22 - CONCLUSION: Unremarkable examination of the pelvis. Ruben Acuña Jr., MD Chest CT 10/05/16109 Signed Impressions: Service Date/Time: Wednesday, October 05, 2016 01:46 - CONCLUSION: 1. No acute intrathoracic abnormality. 2. Bibasilar atelectasis. 3. Cardiomegaly. 4. Prior granulomatous disease. Ruben Acuña Jr., MD Cervical Spine CT 10/05/16109 Signed Impressions: Service Date/Time: Wednesday, October 05, 2016 01:40 - CONCLUSION: 1. No fracture or dislocation. 2. Multilevel degenerative changes. Ruben Acuña Jr., MD Abdomen/Pelvis CT 10/05/16109 Signed Impressions: Service Date/Time: Wednesday, October 05, 2016 01:46 - CONCLUSION: 1. No acute trauma. 2. Rounded area of decreased density involving the pancreatic head. I cannot completely exclude pancreatic head mass. At some point MRI of the pancreas is suggested to further evaluate. 3. Focal area of poor enhancement involving the left kidney. This may relate to an area of parenchymal scarring. I cannot completely exclude a mass. This can be further assessed with MRI as well. Ruben Acuña Jr., MD Objective Remarks GENERAL: Middle-aged male lying in bed, s/p trach. Less agitated, following commands, takes time to answer questions., Appears chronically ill patient. SKIN: Dry. Oral thrush improving. Noted rash on LE and upper extremities, with red borders, serpentiforn rash, raised and red borders. HEAD: Normocephalic. EYES: Pupils are 2 mm and reactive bilaterally. NECK: Supple, trachea midline. Trach site clean, dry. CARDIOVASCULAR: Regular rate and rhythm. No JVD. RESPIRATORY:On Tp today, Breath sounds equal bilaterally. Clear, no wheezes or crackles. Good bilateral excursions. Comfortable. GASTROINTESTINAL: Abdomen soft, non-tender, nondistended. BS active. No guarding. EXTREMITIES: Nonfocal clubbing cyanosis or edema, well perfused. NEURO: Partial eye opening to sternal rub. Follows commands in bilateral upper and lower extremities. Withdraws to pain A/P Problem List: (1) 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 ICD Code: I60.8 Status: Acute (2) Hypertension ICD Code: I10 Status: Acute (3) Major neurocognitive disorder due to vascular disease, without behavioral disturbance, severe ICD Code: F01.50 Status: Acute Assessment and Plan 51yM with aneurysmal SAH, post-bleed day 23, s/p basilar artery coiling 10/05. S/ p IA Verapamil 10/15 and 10/19 for cerebral vasospasm. There is some improvement in encephalopathy, acute hypoxic respiratory failure. Resolving sepsis. critically ill. Now in possible cerebral salt wasting. Continue salt tabs, 3% saline, florinef, and NS 150 ml per hour. strict I/Os. TCDs per N/S. s/p Trach 10/23 and PEG 10/24. Also continues to grow Enterobacter in the sputum With hydrocephalus plan for shunt per Dr Eaton. postponed per patient/family request until diarrhea resolves Plan: Neuro: Acute encephalopathy Aneurysmal Subarachnoid bleed 10/05, Basilar Aneurysm. Thalamic infarct Cerebral Vasospasm Developing Hydrocephalus. Neurosurgery plans for shunt 11/10/16 - Núñez Veliz 5 Lucas grade 3. - Basilar tip coiled. - Nimodipine. Status post intra-arterial verapamil for vasospasm on 10/15, 10/19 - Pravachol - SBP target reduced by Dr. Mace to 120-160. - TCD's per N/S Dr Mace. No recent vasospasm - Neuro exam improving, weakly following commands all 4 ext - Agitated requiring restraints, start seroquel. - CT head 11/07 16 reviewed. Enlarging ventricles with increasing periventricular hypodensity characteristic of developing hydrocephalus. Left thalamic infarct, minimal hemorrhage in the right sylvian fissure and minimal blood in the ventricles is again noted. No evidence of new infarct or parenchymal hemorrhage. Respiratory: Acute Hypoxic and Hypercarbic Respiratory Failure - Intubated for airway protection - s/p trach 10/23 now on CPAP/intermittent TP - Tolerating TP 2-3 hours per day - DuoNeb's as needed for wheezing, start scheduled DuoNeb as well T-piece well tolerated. CV: Septic Shock- resolved. - goal SBP 120-[address] mace - Off Levophed -Resolved Renal: Possible Cerebral Salt Wasting - UO has decreased now to normal range. - Goal euvolemia - Guzman for accurate I/Os Strict I/Os - NaCl tabs 3gm q8h - Florinef 0.2mg q12h - NS @ 120 ml per hour 10/30. DC 3% - strict I/Os q1h - urine studies 10/21 consistent with cerebral salt wasting: at that time was patient intravascularly hypovolemic on clinical exam - NaCl boluses as needed to maintain euvolemia. FEN/GI: Acute Protein Calorie Malnutrition- mild -- vital high protein 40mL/hr. -- daily BMP -- ICU electrolyte protocol. Oral thrush -- Add magic mouth wash Heme/ID: Sepsis ( tachy, leukocytosis,, fevers, poss PNA, UTI) Fever, Leukocytosis. Prior UTI. Pneumonia -- s/p full course abx -- 10/20 sputum culture- Enterobacter, some resistance. sensitive to Cefepime. -- 10/20 urine culture- NGTD -- 10/20 CSF: 0 wbc, glu 111, prot 27.8, culture NGTD -- 10/20 Blood cx: NGTD -- 10/21 CSF: NGTD. -- Dr. Mace d/c EVD 10/21 -- d/c d vancomycin and Flagyl. -- Anticipated completion of 10 day course of cefepime 2gm iv q8hr was on 10/29, repeat sputum cx GNR, ID pending. Continue cefepime for now -- Skin rash poss related to antibiotics vs parasite va fungal . Consult ID for further evaluation and treatment indications. -- Cdiff colitis: Start flagyl 500 mg TID Endocrine: Hyperglycemia of critical illness -- SSI Diarrhea/ fecal incontinence: Check C diff. Add antidiarrhea agents. Prophylaxis: - Teds SCDs - Started Lovenox per nsg 10/23/16 - Protonix IV Discussed with the patient, nurse. DC plan: Pending improvement, also difficult placement. Hypertension control. Well diuresed. Attempting to rid bacterial bronchitis. Awaiting LTAC approval. Stable respiratory and hemodynamic function. Developing hydrocephalus 11/07/16 , neurosurgery evaluating for shunt placement, plan for shunt on 11/10/16, however patient with C diff colitis/diarrhea, started flagyl . Patient /family decided to postpone shunt at this time for next week. Hold transferring to the med/surg floor yet and DC at this time 11/13 guzman is leaking poss high pressure. will change guzman to see if improving otherwise arsenio start meds. 11/15 Recheck C diff. today. Patient with hydrocephalus and plan for shunt placement this week by Dr Eaton. . Patient/ wants shunt placed when C diffis negative. Problem Qualifiers (1) Hypertension: Qualified Code: I10 - Essential hypertension Adele Cooper MD November 15, 2016 07:58
--- NOTE | 2016-11-15 08:56 | HHI.NSPN ---
(Meir Sánchez ENGINEERING ASSOCIATE) Note Status Status: Progress Note (Meir Sánchez) Interval History Interval History 51 year old male presents with being brought in as a trauma alert due to a head injury with altered mental status and a diminished GCS. The patient was in the bathroom and fell and hit his head. This was an unwitnessed fall. According to the patient's the patient had been unresponsive for approximately 15 minutes by the time ambulance services arrived. When they arrived the patient was noted to be a GCS of 14, however his mentation would wax and wane and go down as low as 3 again. On arrival to the emergency department he felt extremely nauseated. The CT of the head revealed diffuse subarachnoid bleed. Emergently intubated in the trauma bay. Possible seizure activity. Intubated in the emergency room. 10/05/16: Endovascular coiling 10/07/16 rinse intubated and sedated. Ventriculostomy in place 10/09/16: Remains intubated and sedated. Increased agitation with attempts at sedation vacation 10/17/16: Pupils 2 mm. Intubated and sedated. Somewhat more responsive with decreased sedation. External ventricular drain and closed to reservoir again today. 10/19/16: TCD with vasospasm, to angio with 10 mg Verapamil IA given. 10/20/16: Patient with fevers up to 102.8 per Nursing and cultures sent, Nursing reports CSF milky & with sediment. TCD being repeated this afternoon due to vast difference from that done this morning and yesterday. Senior Technical Specialist increased SBP parameters to 180-200 mm Hg to help overcome vasospasms. No increase in ICP. 10/21/16: Still with elevated temp but not as high. TCD yesterday demonstrated resolution of vasospasms but today it demonstrated a right SRI vasospasm. Patient with facial grimacing and attempted eye opening. CSF specimen sent yesterday w/o any organisms or WBCs seen on Gram stain. 10/23/16: Trach done 10/24/16: PEG done at bedside prior to being seen. Nursing reports prior to sedation he was following commands to all extremities although right was weaker. Mild vasospasm per TCD. 10/25/16: No evident distress. Noted to move BLE & slight LUE spontaneously. Did open eyes partially after having been stimulated. TCD being done. 10/26/16: No evident distress, attempted eye opening to verbal & attempted to follow some commands, some spontaneous movements noted BLE & LUE. TCD being done. 10/27/16: No apparent distress, no eye opening, follows some commands. 10/28/16: Remains tracheed, NAD, follows some commands, spontaneous movement of BLE & LUE noted. 10/29/16: Remains stable follows some commands, spontaneous movement of BLE & LUE noted 10/31/16: Patient trached and on T-piece when seen, follows commands, spontaneous movement of extremities noted. Did attempt to mouth words. 11/01/16: Patient doing well, on T-piece, follows commands, moving both feet spontaneously. Nursing reports he is intermittently following command and mouthing words. 11/02/16: Patient continues to do well, on T-piece, follows some commands, he does turn his head in direction of practitioner's voice. 11/03/16: Patient doing quite well today, on T-piece, follows commands, opens eyes briefly and holds up two fingers on left hand to command and tries with right. 11/04/16: Patient initially seen this morning with Therapy at the bedside. He had his eyes open at the time and would do a hand squeeze to command. When seen later he would not open his eyes but did follow commands and was able to show two fingers with each hand to command. Nursing reported that the patient mouthed that the RUE was not working. 6: His mental status is improving, he follows commands 4. He is awaiting transfer to group home care facility. No acute events overnight. 7: slightly restless today, has transfer order out of unit pending. no changes to neuro checks overnight. 58: Patient doing well, follows some simple commands but not consistently 5: Patient remains stable, eyes are open, he nods yes when asked if he has a headache. CTA brain yesterday demonstrates enlarging ventricles with periventricular hypodensity characteristic of developing hydrocephalus. 5: Patient stable, does not open eyes to verbal stimuli but does follow commands. 11/10: Patient with stable neurological function. His eyes were initially open when seen but he kept them closed when examined although he did follow other commands. Infectious Disease saw the patient yesterday for a questionable drug- induced rash and signed off. Later in the day the patient had a positive PCR for Clostridium difficile and treatment was started. 11/11: Patient continues to be stable neurologically. He is seen spontaneously moving the right leg. 11/12/16: Pt opens eyes. Nods head to questions. Denies headache. States he is cold. 11/13/16: Pt Not opening eyes. Not following commands. Mouths ouch to pain. Spontaneously moves LEs intermittently. 11/14: Awake & alert, tracks with his eyes. Moving all extremities spontaneously and follows commands. 11/15: Awake & alert, moving all extremities spontaneously, follows commands. Pulse ox down to 85% due to T-piece being disconnected from trach when seen. Connected T-piece to trach and pulse ox up to 95%. (Meir Sánchez) Labs, Micro, & Vital Signs Results Allergies Coded Allergies Type Severity Reaction Last Updated Verified Penicillin Allergy Unknown 10/06/16 Yes Sulfa Allergy Unknown 10/06/16 Yes 11/13///////// 06:00 18:00 06:00 18:00 06:00 18:00 Intake Total 1720 ml 1010 ml 1404 ml 480 ml 2286 ml Output Total 672 ml 1200 ml 1750 ml 525 ml 2350 ml Balance 1048 ml -190 ml -346 ml -45 ml -64 ml Intake Oral 0 ml 0 ml 60 ml IV Total 730 ml 630 ml 801 ml 340 ml 1786 ml Tube Feeding 750 ml 320 ml 483 ml 80 ml 500 ml Other 240 ml 60 ml 120 ml Output Urine Total 650 ml 600 ml 1700 ml 525 ml 2350 ml Stool Total 22 ml 600 ml 50 ml # Bowel Movements 1 Laboratory Tests Test 11/14/16 11/15/16 06:00 05:48 Urine Color YELLOW Urine Turbidity CLEAR Urine pH 6.0 Urine Specific [place] 1.019 Urine Protein 30 mg/dL Urine Glucose (UA) NEG mg/dL Urine Ketones NEG mg/dL Urine Occult Blood NEG Urine Nitrite NEG Urine Bilirubin NEG Urine Urobilinogen LESS THAN 2.0 MG/DL Urine Leukocyte Esterase MOD Urine RBC 2 /hpf Urine WBC 12 /hpf Urine Transitional Epithelial <1 /hpf Cells Urine Calcium Oxalate Crystals RARE /hpf Urine Bacteria RARE /hpf Urine Hyaline Casts 11 /lpf Urine Mucus MOD /lpf Microscopic Urinalysis Comment CULTURE INDICATED White Blood Count 8.6 TH/MM3 Red Blood Count 3.28 MIL/MM3 Hemoglobin 9.2 GM/DL Hematocrit 28.3 % Mean Corpuscular Volume 86.3 FL Mean Corpuscular Hemoglobin 28.1 PG Mean Corpuscular Hemoglobin 32.6 % Concent Red Cell Distribution Width 14.9 % Platelet Count 205 TH/MM3 Mean Platelet Volume 9.0 FL Neutrophils (%) (Auto) 76.8 % Lymphocytes (%) (Auto) 11.5 % Monocytes (%) (Auto) 9.0 % Eosinophils (%) (Auto) 2.3 % Basophils (%) (Auto) 0.4 % Neutrophils # (Auto) 6.6 TH/MM3 Lymphocytes # (Auto) 1.0 TH/MM3 Monocytes # (Auto) 0.8 TH/MM3 Eosinophils # (Auto) 0.2 TH/MM3 Basophils # (Auto) 0.0 TH/MM3 CBC Comment DIFF FINAL Differential Comment Sodium Level 147 MEQ/L Potassium Level 2.2 MEQ/L Chloride Level 106 MEQ/L Carbon Dioxide Level 31.6 MEQ/L Anion Gap 9 MEQ/L Blood Urea Nitrogen 4 MG/DL Creatinine 0.60 MG/DL Estimat Glomerular Filtration 142 ML/MIN Rate Random Glucose 94 MG/DL Calcium Level 7.7 MG/DL Magnesium Level 1.8 MG/DL Constitutional Vital Signs Date Time Temp Pulse Resp B/P Pulse Ox O2 Delivery O2 Flow Rate FiO2 11/15/16 04:00 98.8 110 22 136/69 97 11/15/16 04:00 108 11/15/16 00:00 104 11/15/16 00:00 99.4 102 20 142/83 92 11/14/16 20:23 96 T-piece 6.00 35 11/14/16 20:00 99.3 99 24 148/92 95 11/14/16 20:00 96 11/14/16 19:00 94 T-Piece 6.00 28 11/14/16 16:00 98 11/14/16 16:00 98.1 82 18 120/70 98 11/14/16 12:00 88 11/14/16 12:00 98.0 88 18 126/67 94 11/15/16 07:00 Intake Total 2766 ml Output Total 2875 ml Balance -109 ml (Meir Sánchez) Review of Systems/Exam ROS Unable to obtain ROS due to being trached. Exam Resp: Essentially clear breath sounds bilaterally, equal excursion, non-laboured , trached & on T-piece. CV: S1S2 w/RRR w/o M/G/R, radial & pedal pulses 2+ bilaterally, cap refill < 2 sec. Monitor is sinus tachycardia (low 100s) w/o any ectopy noted GI: Abdomen soft, nontender, bowel sounds all quads, PEG tube with enteral feeds. : Paul cath to BSD. Improving scrotal & groin fungal infection, pinkish in appearance. Neuro: Awake & alert. PERRLA, tracks. 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 Patient was asked to wiggle toes to right foot after left and he kept wiggling the left toes, only after the right foot being touched did he wiggle the toes to the right foot. (Meir Sánchez) Medications Current Medications Current Medications Medications (Trade) Dose Ordered Sig/Nava Route Start Time Stop Time Status Last Admin (Tylenol) 650 mg Q6H PRN PO 10/05/16 02:45 11/13/16 22:08 (Protonix Inj) 40 mg DAILY IV 10/05/16 09:00 11/14/16 09:26 (Tears Naturale Opth Soln) 1 drop TID EACH EYE 10/05/16 09:00 11/14/16 16:53 (Zofran Inj) 4 mg Q6H PRN IV 10/05/16 02:45 11/06/16 20:58 Miscellaneous Information 1 [id number] XX 10/05/16 02:45 10/05/16 02:45 (Chlorhexidine 2% Cloth) 3 pack Taper DAILY@04 TOP 10/05/16 04:00 4/1/18 03:59 11/15/16 04:42 Chlorhexidine Gluconate 3 pack 3 pack UNSCH PRN TOP 10/05/16 02:45 (Keppra Inj/NS Inj) 105 ml @ 420 mls/hr Q12HR IV 10/05/16 09:00 11/14/16 20:54 (Pravachol) 40 mg DAILY PO 10/05/16 09:00 11/14/16 09:25 (NS Flush) See Protocol DAILY IV FLUSH 10/07/16 09:00 11/14/16 09:26 (NS Flush) See Protocol UNSCH PRN IV FLUSH 10/06/16 12:00 Sodium Chloride UNSCH PRN IV FLUSH 10/06/16 12:00 11/04/16 20:46 Norepinephrine Bitartrate 4 mg/ Sodium Chloride 254 ml @ 0 mls/hr TITRATE IV 10/06/16 18:00 10/28/16 20:14 (NS 1000 ml Inj) 1,000 ml @ 60 mls/hr [id number] IV 10/21/16 08:30 11/15/16 07:51 (Sodium Chloride) 3 gm Q8HR PO 10/22/16 14:00 11/15/16 04:42 (Florinef) 0.2 mg Q12HR PO 10/22/16 21:00 11/14/16 20:54 Enoxaparin Sodium 40 mg 40 mg Q24H SQ 10/23/16 21:00 11/14/16 20:54 Potassium Phosphate 30 mmol/ Sodium Chloride 260 ml @ 42 mls/hr UNSCH PRN IV 10/24/16 15:15 Potassium Chloride 100 ml @ 50 mls/hr Q2H PRN IV 11/03/16 05:15 11/15/16 07:51 (KCl 20 Meq Premix Inj) 100 ml @ 50 mls/hr Q2H PRN IV 11/03/16 05:15 Potassium Bicarb/ Potassium Chloride 50 meq 50 meq UNSCH PRN PO 11/03/16 05:15 Potassium Chloride 100 ml @ 25 mls/hr UNSCH PRN IV 11/03/16 05:15 11/05/16 04:42 Potassium Chloride 100 ml @ 50 mls/hr Q2H PRN IV 11/03/16 05:15 (Magnesium Sulfate Inj/NS Inj) 100 ml @ 50 mls/hr UNSCH PRN IV 11/03/16 05:15 Magnesium Oxide 800 mg 800 mg UNSCH PRN PO 11/03/16 05:15 (Magnesium Sulfate Inj/NS Inj) 100 ml @ 50 mls/hr UNSCH PRN IV 11/03/16 05:15 Potassium Phosphate 2000 mg 2,000 mg Q4H PRN PO 11/03/16 05:15 (Sodium Phosphate Inj/NS 250 ml Inj) 250 ml @ 42 mls/hr UNSCH PRN IV 11/03/16 05:15 (K-Phos) 2,000 mg UNSCH PRN PO/TUBE 11/03/16 05:15 (Trandate) 100 mg Q8H PO 11/03/16 20:00 11/15/16 04:40 (Apresoline) 50 mg Q12HR PO 11/03/16 19:00 11/14/16 21:05 (Norvasc) 5 mg DAILY PO 11/04/16 09:00 11/14/16 09:26 (Mycostatin Powder) 1 applic TID TOPICAL 11/06/16 09:00 11/14/16 16:54 (Lactinex) 1 tab Q12HR PO 11/06/16 21:00 11/14/16 20:54 (SEROquel) 25 mg BID@09,12 PO 11/07/16 09:00 11/14/16 12:36 (Magic Mouthwash Adult Liq) 5 ml QID SWISH-SWAL 11/06/16 18:00 11/16/16 17:59 11/14/16 20:55 (Colace Liq) 100 mg Q12H PRN G-TUBE 11/06/16 17:00 (Imodium) 2 mg UNSCH PRN PO 11/09/16 09:45 11/14/16 23:00 (Lomotil Tab) 1 tab Q6H PRN PO 11/09/16 09:45 (Flagyl) 500 mg Q8H PO 11/09/16 16:00 11/15/16 00:06 (Meir Sánchez) Medical Decision Making MDM Remarks 1. Neurological function stable, slowly improving 2. 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 Left basal ganglia region CVA primarily per CT 4. CSF cultures w/o any growth 5. Max temp 99.4 6. Enterobacter cloacae in sputum from 7. Hypokalemia, being treated 8. Hypernatremia 9. Hydrocephalus 10. Clostridium difficile infection (Meir Sánchez) Plan Plan Remarks Plan is to take patient to OR for a PHOTOCOPYING EQUIPMENT REPAIRER shunt this week after tx'ing C diff infection Cognitive/speech therapy eval & tx Activity OOB to cardiac chair Continue PT & OT Continue abx per Surgical Senior Technical Specialist Continue Keppra for probable seizure activity Okay for Lovenox from NSGY standpoint Ulcer prophylaxis Keep SBP between 120-160 mm Hg (Meir Sánchez) Attending Statement I have personally seen and examined the patient on the date of this note. Pertinent documentation and study results have been reviewed by the undersigned. I have personally developed the treatment plan and performed medical decision making. Agree with findings, exam, and treatment plan as noted above. The patient's mental status gradually improving. He will likely still need the ventriculoperitoneal shunt, however given his improving neurologic function, we will continue to observe for now and repeat a CT scan of the head next week. (Gino Mace MD) Meir Sánchez November 15, 2016 08:56 Gino Mace MD November 17, 2016 20:51
[2016-11-15] MEDS: PANTOPRAZOLE SODIUM 40 MG VIAL IV SCH (09:06)
[2016-11-15] MEDS: levETIRAcetam INJ 500 MG in SODIUM CHLORIDE 0.9% INJ 100 ML IV SCH ×2 (09:06→20:14)
[2016-11-15] MEDS: SODIUM CHLORIDE 0.9% FLUSH 10 ML FLUSH IV FLUSH SCH (09:06)
[2016-11-15] MEDS: ARTIFICIAL TEARS OPTH SOLN 15 ML BTL EACH EYE SCH ×3 (09:06→16:06)
[2016-11-15] MEDS: LACTOBACILLUS ACIDOPHILUS TAB PO SCH ×2 (09:07→20:14)
[2016-11-15] MEDS: QUEtiapine FUMARATE 25 MG TAB PO SCH ×2 (09:07→11:50)
[2016-11-15] MEDS: NYSTAT/DIPHENHY/LIDO MOUTHWASH (Adult) 120ML SWISH-SWAL SCH ×4 (09:07→20:14)
[2016-11-15] MEDS: FLUDROCORTISONE ACETATE 0.1 MG TAB PO SCH ×2 (09:07→20:14)
[2016-11-15] MEDS: PRAVASTATIN SOD 40 MG TAB PO SCH (09:07)
[2016-11-15] MEDS: amLODIPine BESYLATE 5 MG TAB PO SCH (09:07)
[2016-11-15] MEDS: hydrALAZINE HCL 50 MG TAB PO SCH ×2 (09:07→20:14)
[2016-11-15] MEDS: NYSTATIN 100,000 U/GM PWD 15 GM BTL TOPICAL SCH ×3 (09:08→16:06)
[2016-11-15] MEDS: ENOXAPARIN SODIUM 40 MG/0.4 ML SYRINGE SQ SCH (20:14)
[2016-11-15] MEDS: POTASSIUM CHLOR 40 MEQ PREMIX 100 ML IV SCH (20:42)
[2016-11-15] MEDS ORDERED: POTASSIUM CHLORIDE 25 MEQ EFFERVESCENT TAB NG ONE (20:45)
[2016-11-16] VITALS (14 sets, daily range): BP systolic 114–147; BP diastolic 64–95; PULSE 88–108; RESP 22–34; TEMP 98–99.3; O2SAT 94–100
[2016-11-16] MEDS: POTASSIUM CHLOR 40 MEQ PREMIX 100 ML IV SCH (01:13)
[2016-11-16] MEDS: CHLORHEXIDINE GLUCONATE 2 % 1 PACK (2 CLOTHS) TOP SCH (03:28)
[2016-11-16] MEDS: LABETALOL HCL 100 MG TAB PO SCH ×3 (05:48→20:25)
[2016-11-16] MEDS: SODIUM CHLORIDE 1 GRAM TAB PO SCH ×3 (05:48→20:25)
[2016-11-16 06:00] LABS: AUTOMATED NEUTROPHIL # 5.7 TH/MM3 (1.8-7.7); BASOPHIL % 0.4 % (0.0-2.0); EOSINOPHIL # 0.3 TH/MM3 (0-0.4); EOSINOPHIL % 3.4 % (0.0-4.0); HEMATOCRIT 27.8 % (39.0-51.0); HEMOGLOBIN 9.2 GM/DL (13.0-17.0); LYMPH % 12.9 % (9.0-44.0); MEAN CELL VOLUME 86.7 FL (80.0-100.0); MEAN CORPUSCULAR HEMOGLOBIN 28.8 PG (27.0-34.0); MEAN CORPUSCULAR HGB CONC 33.2 % (32.0-36.0); MEAN PLATELET VOLUME 8.8 FL (7.0-11.0); MONO % 10.4 % (0.0-8.0); MONOCYTE # 0.8 TH/MM3 (0-0.9); NEUT % 72.9 % (16.0-70.0); PLATELET COUNT 213 TH/MM3 (150-450); RED BLOOD COUNT 3.21 MIL/MM3 (4.50-5.90); RED CELL DISTRIBUTION WIDTH 15.6 % (11.6-17.2); WHITE BLOOD COUNT 7.8 TH/MM3 (4.0-11.0)
[2016-11-16 06:17] LABS: BICARBONATE 31.4 MEQ/L (21.0-32.0); CALCIUM 8.3 MG/DL (8.5-10.1); CREATININE 0.63 MG/DL (0.60-1.30)
[2016-11-16] MEDS: POTASSIUM CHLOR 40 MEQ PREMIX 100 ML IV PRN ×2 (06:26→10:06)
[2016-11-16] MEDS: metroNIDAZOLE 500 MG TAB PO SCH ×2 (08:10→16:30)
[2016-11-16] MEDS: levETIRAcetam INJ 500 MG in SODIUM CHLORIDE 0.9% INJ 100 ML IV SCH ×2 (08:10→20:25)
[2016-11-16] MEDS: PRAVASTATIN SOD 40 MG TAB PO SCH (08:10)
[2016-11-16] MEDS: FLUDROCORTISONE ACETATE 0.1 MG TAB PO SCH ×2 (08:10→20:25)
[2016-11-16] MEDS: PANTOPRAZOLE SODIUM 40 MG VIAL IV SCH (08:11)
[2016-11-16] MEDS: QUEtiapine FUMARATE 25 MG TAB PO SCH ×2 (08:11→12:00)
[2016-11-16] MEDS: LACTOBACILLUS ACIDOPHILUS TAB PO SCH ×2 (08:11→20:25)
[2016-11-16] MEDS: amLODIPine BESYLATE 5 MG TAB PO SCH (08:11)
[2016-11-16] MEDS: hydrALAZINE HCL 50 MG TAB PO SCH ×2 (08:11→20:25)
[2016-11-16] MEDS: SODIUM CHLORIDE 0.9% FLUSH 10 ML FLUSH IV FLUSH SCH (08:11)
[2016-11-16] MEDS: NYSTAT/DIPHENHY/LIDO MOUTHWASH (Adult) 120ML SWISH-SWAL SCH ×2 (08:12→13:00)
[2016-11-16] MEDS: ARTIFICIAL TEARS OPTH SOLN 15 ML BTL EACH EYE SCH ×3 (08:12→20:18)
[2016-11-16] MEDS: NYSTATIN 100,000 U/GM PWD 15 GM BTL TOPICAL SCH ×3 (08:12→20:19)
--- NOTE | 2016-11-16 09:05 | HHI.PR ---
Subjective Remarks Follow-up hypokalemia, C. difficile, hydrocephalus. Per nursing, no events overnight. Patient awakens, but does not answer questions this morning. No diarrhea reported. Objective Vitals Vital Signs Date Time Temp Pulse Resp B/P Pulse Ox O2 Delivery O2 Flow Rate FiO2 11/16/16 06:00 93 11/16/16 04:00 99.3 93 22 126/73 94 11/16/16 04:00 93 11/16/16 02:00 105 11/16/16 00:00 99.2 106 24 126/83 98 11/16/16 00:00 106 11/15/16 20:00 99.0 104 18 154/70 97 11/15/16 20:00 104 11/15/16 19:55 99 T-piece 5.00 35 11/15/16 19:00 98 T-Piece 5.00 35 11/15/16 18:00 96 11/15/16 16:00 98.7 100 20 124/67 99 11/15/16 16:00 100 11/15/16 14:00 96 11/15/16 12:00 109 11/15/16 12:00 98.5 109 27 133/71 99 11/15/16 10:00 106 I/O 11/15/16 11/15/16 11/15/16 11/16/16 11/16/16 11/16/16 07:00 15:00 23:00 07:00 15:00 23:00 Intake Total 600 ml 723 ml 895 ml 1002 ml Output Total 1350 ml 675 ml 550 ml 1000 ml Balance -750 ml 48 ml 345 ml 2 ml IV Total 600 ml 497 ml 682 ml 571 ml Tube Feeding 26 ml 213 ml 311 ml Tube Irrigant 120 ml Other 200 ml Output Urine Total 1350 ml 675 ml 550 ml 1000 ml Tube Feeding Residual Discard 0 ml 0 ml 0 ml # Bowel Movements 1 2 Result Diagram: 11/16/1651611/16/16516 Imaging Last Impressions Head CT 11/07/16 0000 Signed Impressions: Service Date/Time: Monday, November 07, 2016 10:51 - CONCLUSION: Enlarging ventricles with increasing periventricular hypodensity characteristic of developing hydrocephalus. Left thalamic infarct, minimal hemorrhage in the right sylvian fissure and minimal blood in the ventricles is again noted. No evidence of new infarct or parenchymal hemorrhage. Leonel Alva MD Chest X-Ray 11/01/16 0600 Signed Impressions: Service Date/Time: Tuesday, November 01, 2016 04:37 - CONCLUSION: 1. No acute cardiopulmonary disease. Trevin De León MD Transcranial Doppler Study Complete 10/26/16 0700 Signed Impressions: Service Date/Time: Wednesday, October 26, 2016 08:20 - CONCLUSION: Minimal interval improvement with no evidence for vasospasm. Christian Song MD FACR Neck CTA 10/19/16 0000 Signed Impressions: Service Date/Time: Wednesday, October 19, 2016 14:19 - CONCLUSION: Negative for dissection or significant stenosis. Christian Song MD FACR Head CTA 10/19/16 0000 Signed Impressions: Service Date/Time: Wednesday, October 19, 2016 14:19 - CONCLUSION: 1. Interval development of significant vasospasm in the left MCA and SRI territories. 2. Mild vasospasm in the basilar artery.. Gume Mckeon MD Cerebral Arteriogram 10/19/16 0000 Signed Impressions: Service Date/Time: Wednesday, October 19, 2016 16:06 - CONCLUSION: 1. Vasospasm in the left MCA and SRI territories 2. Spasmolytic infusion, left internal carotid artery as above.. 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 Gume Mckeon MD Pelvis X-Ray 10/05/16109 Signed Impressions: Service Date/Time: Wednesday, October 05, 2016 01:22 - CONCLUSION: Unremarkable examination of the pelvis. Ruben Acuña Jr., MD Chest CT 10/05/16109 Signed Impressions: Service Date/Time: Wednesday, October 05, 2016 01:46 - CONCLUSION: 1. No acute intrathoracic abnormality. 2. Bibasilar atelectasis. 3. Cardiomegaly. 4. Prior granulomatous disease. Ruben Acuña Jr., MD Cervical Spine CT 10/05/16109 Signed Impressions: Service Date/Time: Wednesday, October 05, 2016 01:40 - CONCLUSION: 1. No fracture or dislocation. 2. Multilevel degenerative changes. Ruben Acuña Jr., MD Abdomen/Pelvis CT 10/05/16 0110 Signed Impressions: Service Date/Time: Wednesday, October 05, 2016 01:46 - CONCLUSION: 1. No acute trauma. 2. Rounded area of decreased density involving the pancreatic head. I cannot completely exclude pancreatic head mass. At some point MRI of the pancreas is suggested to further evaluate. 3. Focal area of poor enhancement involving the left kidney. This may relate to an area of parenchymal scarring. I cannot completely exclude a mass. This can be further assessed with MRI as well. Ruben Acuña Jr., MD Objective Remarks General: No acute distress. Sitting up in a chair. In soft wrist restraints. Heart: Regular rate and rhythm. No murmur. Lungs: Clear to auscultation bilaterally. No wheezes, rales, or rhonchi. Breathing is nonlabored. Abdomen: Soft, nontender, nondistended. Positive bowel sounds. Extremities: No lower extremity edema. Psych: Awakens, but does not answer questions. 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 ICD Code: I60.8 Status: Acute (2) Hypertension ICD Code: I10 Status: Chronic (3) Major neurocognitive disorder due to vascular disease, without behavioral disturbance, severe ICD Code: F01.50 Status: Acute (4) Septic shock ICD Code: A41.9 Status: Resolved (5) Hydrocephalus ICD Code: G91.9 Status: Acute (6) Intracranial hemorrhage ICD Code: I62.9 Status: Acute (7) Major neurocognitive disorder as late effect of traumatic brain injury with behavioral disturbance ICD Code: S06.9X9S Status: Acute (8) Encephalopathy ICD Code: G93.40 Status: Acute (9) Sepsis ICD Code: A41.9 Status: Resolved (10) Pneumonia ICD Code: J18.9 Status: Acute (11) Protein-calorie malnutrition, mild ICD Code: E44.1 Status: Acute (12) Acute respiratory failure with hypoxia and hypercarbia ICD Code: J96.01 Status: Acute Assessment and Plan 1. Aneurysmal subarachnoid hemorrhage, occurred on 10/05/16: Appreciate neurosurgery recommendations. Okay for Lovenox per neurosurgery. Continue Keppra for seizure prophylaxis. 2. Encephalopathy: Secondary to above. Improving. 3. Acute hypoxic, hypercarbic respiratory failure: Tracheostomy 10/23/16. On T- piece. Continue supplemental oxygen. DuoNeb as needed, scheduled. Pulmonology consult for trach management. 4. Septic shock: Resolved. 5. Possible cerebral salt wasting: Continue sodium chloride tablets, Florinef, IV fluids. 6. Mild acute protein calorie malnutrition: Continue tube feedings. Monitor labs. 7. Pneumonia: Completed antibiotics. 8. C. difficile colitis: Continue Flagyl. Repeat C. difficile studies are negative. 9. Hyperglycemia of critical illness: Monitor Accu-Cheks and cover with sliding scale insulin. 10. DVT prophylaxis: SCDs, YOUSIF hose, Lovenox. 11. GI prophylaxis: Protonix. 12. Hydrocephalus: Plan for shunt placement per neurosurgery. Awaiting clearance of C. difficile. Problem Qualifiers (1) Hypertension: Qualified Code: I10 - Essential hypertension Enrique Mclain MD November 16, 2016 09:05
--- NOTE | 2016-11-16 12:19 | HHI.NSPN ---
(Meir Sánchez PNEUMATIC RIVETER) Note Status Status: Progress Note (Meir Sánchez) Interval History Interval History 51 year old male presents with being brought in as a trauma alert due to a head injury with altered mental status and a diminished GCS. The patient was in the bathroom and fell and hit his head. This was an unwitnessed fall. According to the patient's the patient had been unresponsive for approximately 15 minutes by the time ambulance services arrived. When they arrived the patient was noted to be a GCS of 14, however his mentation would wax and wane and go down as low as 3 again. On arrival to the emergency department he felt extremely nauseated. The CT of the head revealed diffuse subarachnoid bleed. Emergently intubated in the trauma bay. Possible seizure activity. Intubated in the emergency room. 10/05/16: Endovascular coiling 10/07/16 rinse intubated and sedated. Ventriculostomy in place 10/09/16: Remains intubated and sedated. Increased agitation with attempts at sedation vacation 10/17/16: Pupils 2 mm. Intubated and sedated. Somewhat more responsive with decreased sedation. External ventricular drain and closed to reservoir again today. 10/19/16: TCD with vasospasm, to angio with 10 mg Verapamil IA given. 10/20/16: Patient with fevers up to 102.8 per Nursing and cultures sent, Nursing reports CSF milky & with sediment. TCD being repeated this afternoon due to vast difference from that done this morning and yesterday. Health Data Analyst increased SBP parameters to 180-200 mm Hg to help overcome vasospasms. No increase in ICP. 10/21/16: Still with elevated temp but not as high. TCD yesterday demonstrated resolution of vasospasms but today it demonstrated a right SRI vasospasm. Patient with facial grimacing and attempted eye opening. CSF specimen sent yesterday w/o any organisms or WBCs seen on Gram stain. 10/23/16: Trach done 10/24/16: PEG done at bedside prior to being seen. Nursing reports prior to sedation he was following commands to all extremities although right was weaker. Mild vasospasm per TCD. 10/25/16: No evident distress. Noted to move BLE & slight LUE spontaneously. Did open eyes partially after having been stimulated. TCD being done. 10/26/16: No evident distress, attempted eye opening to verbal & attempted to follow some commands, some spontaneous movements noted BLE & LUE. TCD being done. 10/27/16: No apparent distress, no eye opening, follows some commands. 10/28/16: Remains tracheed, NAD, follows some commands, spontaneous movement of BLE & LUE noted. 10/29/16: Remains stable follows some commands, spontaneous movement of BLE & LUE noted 10/31/16: Patient trached and on T-piece when seen, follows commands, spontaneous movement of extremities noted. Did attempt to mouth words. 11/01/16: Patient doing well, on T-piece, follows commands, moving both feet spontaneously. Nursing reports he is intermittently following command and mouthing words. 11/02/16: Patient continues to do well, on T-piece, follows some commands, he does turn his head in direction of practitioner's voice. 11/03/16: Patient doing quite well today, on T-piece, follows commands, opens eyes briefly and holds up two fingers on left hand to command and tries with right. 11/04/16: Patient initially seen this morning with Therapy at the bedside. He had his eyes open at the time and would do a hand squeeze to command. When seen later he would not open his eyes but did follow commands and was able to show two fingers with each hand to command. Nursing reported that the patient mouthed that the RUE was not working. 6: His mental status is improving, he follows commands 4. He is awaiting transfer to shelter care facility. No acute events overnight. 7: slightly restless today, has transfer order out of unit pending. no changes to neuro checks overnight. 58: Patient doing well, follows some simple commands but not consistently 5: Patient remains stable, eyes are open, he nods yes when asked if he has a headache. CTA brain yesterday demonstrates enlarging ventricles with periventricular hypodensity characteristic of developing hydrocephalus. 5: Patient stable, does not open eyes to verbal stimuli but does follow commands. 11/10: Patient with stable neurological function. His eyes were initially open when seen but he kept them closed when examined although he did follow other commands. Infectious Disease saw the patient yesterday for a questionable drug- induced rash and signed off. Later in the day the patient had a positive PCR for Clostridium difficile and treatment was started. 11/11: Patient continues to be stable neurologically. He is seen spontaneously moving the right leg. 11/12/16: Pt opens eyes. Nods head to questions. Denies headache. States he is cold. 11/13/16: Pt Not opening eyes. Not following commands. Mouths ouch to pain. Spontaneously moves LEs intermittently. 11/14: Awake & alert, tracks with his eyes. Moving all extremities spontaneously and follows commands. 11/15: Awake & alert, moving all extremities spontaneously, follows commands. Pulse ox down to 85% due to T-piece being disconnected from trach when seen. Connected T-piece to trach and pulse ox up to 95%. 11/16: Patient awake & alert, watching TV, moving all extremities. (Meir Sánchez) Labs, Micro, & Vital Signs Results Allergies Coded Allergies Type Severity Reaction Last Updated Verified Penicillin Allergy Unknown 10/06/16 Yes Sulfa Allergy Unknown 10/06/16 Yes //// 06:00 18:00 06:00 18:00 06:00 18:00 Intake Total 1404 ml 480 ml 2286 ml 723 ml 1897 ml Output Total 1750 ml 525 ml 2350 ml 675.0 ml 1550.0 ml Balance -346 ml -45 ml -64 ml 48.0 ml 347.0 ml Intake Oral 60 ml IV Total 801 ml 340 ml 1786 ml 497 ml 1253 ml Tube Feeding 483 ml 80 ml 500 ml 26 ml 524 ml Tube Irrigant 120 ml Other 120 ml 200 ml Output Urine Total 1700 ml 525 ml 2350 ml 675 ml 1550 ml Stool Total 50 ml Tube Feeding Residual Discard 0 ml 0 ml # Bowel Movements 1 1 2 Laboratory Tests Test 11/14/16 11/15/16 11/15/16 11/15/16 06:00 05:48 12:10 15:55 Urine Color YELLOW Urine Turbidity CLEAR Urine pH 6.0 Urine Specific [place] 1.019 Urine Protein 30 mg/dL Urine Glucose (UA) NEG mg/dL Urine Ketones NEG mg/dL Urine Occult Blood NEG Urine Nitrite NEG Urine Bilirubin NEG Urine Urobilinogen LESS THAN 2.0 MG/DL Urine Leukocyte Esterase MOD Urine RBC 2 /hpf Urine WBC 12 /hpf Urine Transitional Epithelial <1 /hpf Cells Urine Calcium Oxalate Crystals RARE /hpf Urine Bacteria RARE /hpf Urine Hyaline Casts 11 /lpf Urine Mucus MOD /lpf Microscopic Urinalysis Comment CULTURE INDICATED White Blood Count 8.6 TH/MM3 Red Blood Count 3.28 MIL/MM3 Hemoglobin 9.2 GM/DL Hematocrit 28.3 % Mean Corpuscular Volume 86.3 FL Mean Corpuscular Hemoglobin 28.1 PG Mean Corpuscular Hemoglobin 32.6 % Concent Red Cell Distribution Width 14.9 % Platelet Count 205 TH/MM3 Mean Platelet Volume 9.0 FL Neutrophils (%) (Auto) 76.8 % Lymphocytes (%) (Auto) 11.5 % Monocytes (%) (Auto) 9.0 % Eosinophils (%) (Auto) 2.3 % Basophils (%) (Auto) 0.4 % Neutrophils # (Auto) 6.6 TH/MM3 Lymphocytes # (Auto) 1.0 TH/MM3 Monocytes # (Auto) 0.8 TH/MM3 Eosinophils # (Auto) 0.2 TH/MM3 Basophils # (Auto) 0.0 TH/MM3 CBC Comment DIFF FINAL Differential Comment Sodium Level 147 MEQ/L Potassium Level 2.2 MEQ/L 2.6 MEQ/L Chloride Level 106 MEQ/L Carbon Dioxide Level 31.6 MEQ/L Anion Gap 9 MEQ/L Blood Urea Nitrogen 4 MG/DL Creatinine 0.60 MG/DL Estimat Glomerular Filtration 142 ML/MIN Rate Random Glucose 94 MG/DL Calcium Level 7.7 MG/DL Magnesium Level 1.8 MG/DL Stool C. difficile Toxin (PCR) NEGATIVE Stl C. difficile Toxin PRESUMPTIVE Epiderm 027 NEGATIVE Test 11/15/16 11/15/16 11/16/16 19:17 23:00 05:17 Potassium Level 2.6 MEQ/L 3.1 MEQ/L Stool C. difficile Toxin (PCR) NEGATIVE Stl C. difficile Toxin PRESUMPTIVE Epiderm 027 NEGATIVE White Blood Count 7.8 TH/MM3 Red Blood Count 3.21 MIL/MM3 Hemoglobin 9.2 GM/DL Hematocrit 27.8 % Mean Corpuscular Volume 86.7 FL Mean Corpuscular Hemoglobin 28.8 PG Mean Corpuscular Hemoglobin 33.2 % Concent Red Cell Distribution Width 15.6 % Platelet Count 213 TH/MM3 Mean Platelet Volume 8.8 FL Neutrophils (%) (Auto) 72.9 % Lymphocytes (%) (Auto) 12.9 % Monocytes (%) (Auto) 10.4 % Eosinophils (%) (Auto) 3.4 % Basophils (%) (Auto) 0.4 % Neutrophils # (Auto) 5.7 TH/MM3 Lymphocytes # (Auto) 1.0 TH/MM3 Monocytes # (Auto) 0.8 TH/MM3 Eosinophils # (Auto) 0.3 TH/MM3 Basophils # (Auto) 0.0 TH/MM3 CBC Comment DIFF FINAL Differential Comment Sodium Level 148 MEQ/L Chloride Level 110 MEQ/L Carbon Dioxide Level 31.4 MEQ/L Anion Gap 7 MEQ/L Blood Urea Nitrogen 4 MG/DL Creatinine 0.63 MG/DL Estimat Glomerular Filtration 134 ML/MIN Rate Random Glucose 126 MG/DL Calcium Level 8.3 MG/DL Constitutional Vital Signs Date Time Temp Pulse Resp B/P Pulse Ox O2 Delivery O2 Flow Rate FiO2 11/16/16 09:28 95 T-piece 5.00 35 11/16/16 06:00 93 11/16/16 04:00 99.3 93 22 126/73 94 11/16/16 04:00 93 11/16/16 02:00 105 11/16/16 00:00 99.2 106 24 126/83 98 11/16/16 00:00 106 11/15/16 20:00 99.0 104 18 154/70 97 11/15/16 20:00 104 11/15/16 19:55 99 T-piece 5.00 35 11/15/16 19:00 98 T-Piece 5.00 35 11/15/16 18:00 96 11/15/16 16:00 98.7 100 20 124/67 99 11/15/16 16:00 100 11/15/16 14:00 96 11/15/16 12:00 109 11/15/16 12:00 98.5 109 27 133/71 99 11/16/16 07:00 Intake Total 2620 ml Output Total 2225.0 ml Balance 395.0 ml (Meir Sánchez) Review of Systems/Exam ROS He does mouth "yes" to having a headache, shortness of breath, chest pain and abdominal pain. He mouths "no" to dizziness, numbness, tingling, nausea or arm/leg pain. Exam Resp: Essentially clear breath sounds bilaterally, equal excursion, non-laboured , trached & on T-piece. CV: S1S2 w/regular rhythm but fast w/o M/G/R, radial & pedal pulses 2+ bilaterally, cap refill < 2 sec. Monitor is sinus tachycardia (low 100s) w/o any ectopy noted GI: Abdomen soft, nontender, bowel sounds not appreciated, PEG tube with enteral feeds. : Paul cath to BSD. Neuro: Awake & alert. PERRLA, tracks. Mouthing words. Follows commands, motor strength LUE & BLE strong but slightly weaker in RUE. Appears he does have some difficulty judging distances. (Meir Sánchez) Medications Current Medications Current Medications Medications (Trade) Dose Ordered Sig/Nava Route Start Time Stop Time Status Last Admin (Tylenol) 650 mg Q6H PRN PO 10/05/16 02:45 11/13/16 22:08 (Protonix Inj) 40 mg DAILY IV 10/05/16 09:00 11/16/16 08:11 (Tears Naturale Opth Soln) 1 drop TID EACH EYE 10/05/16 09:00 11/16/16 08:12 (Zofran Inj) 4 mg Q6H PRN IV 10/05/16 02:45 11/06/16 20:58 Miscellaneous Information 1 [id number] XX 10/05/16 02:45 10/05/16 02:45 (Chlorhexidine 2% Cloth) 3 pack Taper DAILY@04 TOP 10/05/16 04:00 10/01/17 03:59 11/16/16 03:28 Chlorhexidine Gluconate 3 pack 3 pack UNSCH PRN TOP 10/05/16 02:45 (Keppra Inj/NS Inj) 105 ml @ 420 mls/hr Q12HR IV 10/05/16 09:00 11/16/16 08:10 (Pravachol) 40 mg DAILY PO 10/05/16 09:00 11/16/16 08:10 (NS Flush) See Protocol DAILY IV FLUSH 10/07/16 09:00 11/16/16 08:11 (NS Flush) See Protocol UNSCH PRN IV FLUSH 10/06/16 12:00 Sodium Chloride UNSCH PRN IV FLUSH 10/06/16 12:00 11/04/16 20:46 Norepinephrine Bitartrate 4 mg/ Sodium Chloride 254 ml @ 0 mls/hr TITRATE IV 10/06/16 18:00 10/28/16 20:14 (NS 1000 ml Inj) 1,000 ml @ 60 mls/hr [id number] IV 10/21/16 08:30 11/15/16 07:51 (Florinef) 0.2 mg Q12HR PO 10/22/16 21:00 11/16/16 08:10 Enoxaparin Sodium 40 mg 40 mg Q24H SQ 10/23/16 21:00 11/15/16 20:14 Potassium Phosphate 30 mmol/ Sodium Chloride 260 ml @ 42 mls/hr UNSCH PRN IV 10/24/16 15:15 Potassium Chloride 100 ml @ 50 mls/hr Q2H PRN IV 11/03/16 05:15 11/16/16 10:06 (KCl 20 Meq Premix Inj) 100 ml @ 50 mls/hr Q2H PRN IV 11/03/16 05:15 Potassium Bicarb/ Potassium Chloride 50 meq 50 meq UNSCH PRN PO 11/03/16 05:15 Potassium Chloride 100 ml @ 25 mls/hr UNSCH PRN IV 11/03/16 05:15 11/05/16 04:42 Potassium Chloride 100 ml @ 50 mls/hr Q2H PRN IV 11/03/16 05:15 (Magnesium Sulfate Inj/NS Inj) 100 ml @ 50 mls/hr UNSCH PRN IV 11/03/16 05:15 Magnesium Oxide 800 mg 800 mg UNSCH PRN PO 11/03/16 05:15 (Magnesium Sulfate Inj/NS Inj) 100 ml @ 50 mls/hr UNSCH PRN IV 11/03/16 05:15 Potassium Phosphate 2000 mg 2,000 mg Q4H PRN PO 11/03/16 05:15 (Sodium Phosphate Inj/NS 250 ml Inj) 250 ml @ 42 mls/hr UNSCH PRN IV 11/03/16 05:15 (K-Phos) 2,000 mg UNSCH PRN PO/TUBE 11/03/16 05:15 (Trandate) 100 mg Q8H PO 11/03/16 20:00 11/16/16 05:48 (Apresoline) 50 mg Q12HR PO 11/03/16 19:00 11/16/16 08:11 (Norvasc) 5 mg DAILY PO 11/04/16 09:00 11/16/16 08:11 (Mycostatin Powder) 1 applic TID TOPICAL 11/06/16 09:00 11/16/16 08:12 (Lactinex) 1 tab Q12HR PO 11/06/16 21:00 11/16/16 08:11 (SEROquel) 25 mg BID@,12 PO 11/07/16 09:00 11/16/16 08:11 (Magic Mouthwash Adult Liq) 5 ml QID SWISH-SWAL 11/06/16 18:00 11/16/16 17:59 11/16/16 08:12 (Colace Liq) 100 mg Q12H PRN G-TUBE 11/06/16 17:00 (Imodium) 2 mg UNSCH PRN PO 11/09/16 09:45 11/14/16 23:00 (Lomotil Tab) 1 tab Q6H PRN PO 11/09/16 09:45 (Flagyl) 500 mg Q8H PO 11/09/16 16:00 11/16/16 08:10 (Sodium Chloride) 2 gm Q8HR PO 11/16/16 14:00 (Meir Sánchez) Medical Decision Making MDM Remarks 1. Neurological function stable, continues to improve 2. 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 Left basal ganglia region CVA primarily per CT 4. CSF cultures w/o any growth 5. Max temp 99.3 6. Enterobacter cloacae in sputum from 7. Hypokalemia, being treated 8. Hypernatremia 9. Hydrocephalus 10. Clostridium difficile infection, negative stool (Meir Sánchez) Plan Plan Remarks Plan is to take patient to OR for a [employer] shunt next week after tx'ing C diff infection Cognitive/speech therapy eval & tx Activity OOB to cardiac chair Continue PT & OT Continue abx per Surgical Health Data Analyst Continue Keppra for probable seizure activity Okay for Lovenox from NSGY standpoint Ulcer prophylaxis Keep SBP between 120-160 mm Hg (Meir Sánchez) Attending Statement I have personally seen and examined the patient on the date of this note. Pertinent documentation and study results have been reviewed by the undersigned. I have personally developed the treatment plan and performed medical decision making. Agree with findings, exam, and treatment plan as noted above. Remains relatively awake and alert, following commands consistently. Treating for C. difficile Plan follow-up CT scan had next week with probable shunt placement. (Gino Mace MD) Meir Sánchez November 16, 2016 11:39 Gino Mace MD November 17, 2016 20:52
[2016-11-16] MEDS: SODIUM CHLOR 0.9% 1000 ML INJ 1,000 ML IV SCH (15:33)
--- NOTE | 2016-11-16 19:09 | MB ---
cc: BUZZ FERNANDEZ DATE OF CONSULTATION 11/16/[address] Enrique Mclain. REASON FOR CONSULTATION Trache management. HISTORY OF THE PRESENT ILLNESS Mr. Nunez is a 51-year-old male with history of hypertension, chronic headache and history of pancreatitis. The patient was brought as a trauma alert. He was found down on the floor by his , he was unresponsive. He was brought to the emergency room. His initial GCS was 14 and then he went down to 3. The patient was intubated. He was found to have intracranial hemorrhage. He had an endovascular coiling done and he had ventriculostomy tube placed. The patient was on the ventilator, required tracheostomy tube placed. He has trache and PEG tube. He is on trache collar. He has thick secretions. No fever or chills. No night sweats. PAST MEDICAL HISTORY He has a past medical history of: 1. Hypertension. 2. Chronic headache. 3. Pancreatitis. MEDICATIONS He is currently takin. Ammonium 2 milligrams. 2. Flagyl 500 mg q.8h. 3. Seroquel 25 mg twice a day. 4. Lactinex 1 tablet twice a day. 5. Magic Mouthwash. 6. Amlodipine 5 mg a day. 7. Labetalol 100 mg q.8h. 8. Hydralazine 50 mg q.12h. ALLERGIES HE IS ALLERGIC TO PENICILLIN AND SULFA. SOCIAL HISTORY Not available. FAMILY HISTORY Not available. REVIEW OF SYSTEMS Cannot assess. PHYSICAL EXAMINATION GENERAL: Well built, well-nourished male. He is on trache collar. Opens eyes and follows simple commands. VITAL SIGNS: Blood pressure 141/78, heart rate 91, respirations 16, temperature 98.7. HEENT: Pupils are equal and reactive to light. He has trache in place. NECK: Supple. JVP not raised. CHEST: Air entry equal bilaterally. No rales. CARDIOVASCULAR: S1, S2 normal. ABDOMEN: Soft, nondistended. He has PEG tube in place. EXTREMITIES: No edema. IMPRESSION 1. Respiratory failure status post tracheostomy tube. 2. Intracranial hemorrhage status post endovascular coiling. 3. Hydrocephalus. 4. C diff positive. 5. Hypertension. PLAN He still has secretions from the tracheostomy. We will manage the secretions. When the secretions are done then we will downsize his tracheostomy tube and try [place] valve. Continue present antibiotic. He is on Flagyl for C diff. He is being planned for shunt placement. After the shunt is placed we will wean from the trache. Further treatment will depend on the course in the hospital. Thank you Dr. Mclain for this consultation. MD KAREN Carmichael/LAURO /5:37 PM /6:45 PM
[2016-11-16] MEDS: ENOXAPARIN SODIUM 40 MG/0.4 ML SYRINGE SQ SCH (20:26)
[2016-11-16] MEDS ORDERED: diphenhydrAMINE HCL 50 MG/ML VIAL ONE (22:55)
[2016-11-16] MEDS: diphenhydrAMINE HCL 50 MG/ML VIAL IV PRN (23:06)
[2016-11-17] VITALS (14 sets, daily range): BP systolic 127–157; BP diastolic 70–90; PULSE 86–102; RESP 13–25; TEMP 98.4–99.1; O2SAT 92–99
[2016-11-17] MEDS: metroNIDAZOLE 500 MG TAB PO SCH ×3 (00:32→15:48)
[2016-11-17] MEDS: CHLORHEXIDINE GLUCONATE 2 % 1 PACK (2 CLOTHS) TOP SCH (03:16)
[2016-11-17] MEDS: LABETALOL HCL 100 MG TAB PO SCH ×3 (03:18→21:14)
[2016-11-17 04:01] LABS: AUTOMATED NEUTROPHIL # 5.3 TH/MM3 (1.8-7.7); BASOPHIL % 0.5 % (0.0-2.0); EOSINOPHIL # 0.3 TH/MM3 (0-0.4); EOSINOPHIL % 3.5 % (0.0-4.0); HEMATOCRIT 27.6 % (39.0-51.0); HEMOGLOBIN 9.2 GM/DL (13.0-17.0); LYMPH % 16.1 % (9.0-44.0); LYMPHOCYTE # 1.2 TH/MM3 (1.0-4.8); MEAN CELL VOLUME 86.6 FL (80.0-100.0); MEAN CORPUSCULAR HGB CONC 33.4 % (32.0-36.0); MEAN PLATELET VOLUME 8.6 FL (7.0-11.0); MONO % 8.8 % (0.0-8.0); MONOCYTE # 0.7 TH/MM3 (0-0.9); NEUT % 71.1 % (16.0-70.0); PLATELET COUNT 214 TH/MM3 (150-450); RED BLOOD COUNT 3.19 MIL/MM3 (4.50-5.90); RED CELL DISTRIBUTION WIDTH 15.6 % (11.6-17.2); WHITE BLOOD COUNT 7.4 TH/MM3 (4.0-11.0)
[2016-11-17 04:23] LABS: CALCIUM 8.6 MG/DL (8.5-10.1); CREATININE 0.68 MG/DL (0.60-1.30)
[2016-11-17] MEDS: SODIUM CHLORIDE 1 GRAM TAB PO SCH ×3 (05:11→21:15)
[2016-11-17] MEDS: POTASSIUM CHLOR 40 MEQ PREMIX 100 ML IV PRN ×3 (05:13→22:54)
--- NOTE | 2016-11-17 07:54 | HHI.PR ---
Subjective Remarks Follow-up hypokalemia, C. difficile, hydrocephalus. Per nursing, the patient became agitated overnight. He has been trying to pull out lines. Soft wrist restraints were placed. Patient is alert, but does not answer questions. Objective Vitals Vital Signs Date Time Temp Pulse Resp B/P Pulse Ox O2 Delivery O2 Flow Rate FiO2 11/17/16 06:00 97 11/17/16 04:00 97 11/17/16 04:00 99.0 97 24 142/89 92 11/17/16 02:00 102 11/17/16 00:00 99.1 96 17 145/90 95 11/17/16 00:00 96 11/16/16 22:00 105 11/16/16 20:00 98 11/16/16 20:00 98.4 98 34 147/95 98 11/16/16 19:48 98 T-piece 28 11/16/16 19:00 95 T-Piece 5.00 35 11/16/16 18:00 88 11/16/16 16:00 90 11/16/16 16:00 98.0 90 22 114/64 99 11/16/16 14:00 88 11/16/16 12:00 106 11/16/16 12:00 98.9 106 26 114/76 97 11/16/16 10:00 108 11/16/16 09:28 95 T-piece 5.00 35 11/16/16 08:00 98.7 99 27 141/78 100 11/16/16 08:00 99 11/16/16 08:00 100 T-Piece 5.00 35 I/O 11/16/16 11/16/16 11/16/16 11/17/16 11/17/16 11/17/16 07:00 15:00 23:00 07:00 15:00 23:00 Intake Total 1002 ml 1087 ml 557 ml 950 ml Output Total 1000 ml 600 ml 350 ml 1100 ml Balance 2 ml 487 ml 207 ml -150 ml IV Total 571 ml 438 ml 377 ml 501 ml Tube Feeding 311 ml 589 ml 120 ml 389 ml Tube Irrigant 120 ml 60 ml 60 ml 60 ml Output Urine Total 1000 ml 600 ml 350 ml 1100 ml Tube Feeding Residual Discard 0 ml 0 ml 0 ml 0 ml # Bowel Movements 2 2 0 0 Result Diagram: 11/17/16 0345 11/17/16 034 Imaging Last Impressions Head CT 11/07/16 0000 Signed Impressions: Service Date/Time: Monday, November 07, 2016 10:51 - CONCLUSION: Enlarging ventricles with increasing periventricular hypodensity characteristic of developing hydrocephalus. Left thalamic infarct, minimal hemorrhage in the right sylvian fissure and minimal blood in the ventricles is again noted. No evidence of new infarct or parenchymal hemorrhage. Leonel Alva MD Chest X-Ray 11/01/16 0600 Signed Impressions: Service Date/Time: Tuesday, November 01, 2016 04:37 - CONCLUSION: 1. No acute cardiopulmonary disease. Trevin De León MD Transcranial Doppler Study Complete 10/26/16 0700 Signed Impressions: Service Date/Time: Wednesday, October 26, 2016 08:20 - CONCLUSION: Minimal interval improvement with no evidence for vasospasm. Christian Song MD FACR Neck CTA 10/19/16 0000 Signed Impressions: Service Date/Time: Wednesday, October 19, 2016 14:19 - CONCLUSION: Negative for dissection or significant stenosis. Christian Song MD FACR Head CTA 10/19/16 0000 Signed Impressions: Service Date/Time: Wednesday, October 19, 2016 14:19 - CONCLUSION: 1. Interval development of significant vasospasm in the left MCA and SRI territories. 2. Mild vasospasm in the basilar artery.. Gume Mckeon MD Cerebral Arteriogram 10/19/16 0000 Signed Impressions: Service Date/Time: Wednesday, October 19, 2016 16:06 - CONCLUSION: 1. Vasospasm in the left MCA and SRI territories 2. Spasmolytic infusion, left internal carotid artery as above.. 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 Gume Mckeon MD Pelvis X-Ray 10/05/16 0110 Signed Impressions: Service Date/Time: Wednesday, October 05, 2016 01:22 - CONCLUSION: Unremarkable examination of the pelvis. Ruben Acuña Jr., MD Chest CT 10/05/16 0110 Signed Impressions: Service Date/Time: Wednesday, October 05, 2016 01:46 - CONCLUSION: 1. No acute intrathoracic abnormality. 2. Bibasilar atelectasis. 3. Cardiomegaly. 4. Prior granulomatous disease. Ruben Acuña Jr., MD Cervical Spine CT 10/05/16109 Signed Impressions: Service Date/Time: Wednesday, October 05, 2016 01:40 - CONCLUSION: 1. No fracture or dislocation. 2. Multilevel degenerative changes. Ruben Acuña Jr., MD Abdomen/Pelvis CT 10/05/16109 Signed Impressions: Service Date/Time: Wednesday, October 05, 2016 01:46 - CONCLUSION: 1. No acute trauma. 2. Rounded area of decreased density involving the pancreatic head. I cannot completely exclude pancreatic head mass. At some point MRI of the pancreas is suggested to further evaluate. 3. Focal area of poor enhancement involving the left kidney. This may relate to an area of parenchymal scarring. I cannot completely exclude a mass. This can be further assessed with MRI as well. Ruben Acuña Jr., MD Objective Remarks General: No acute distress. In soft wrist restraints. T-piece. Heart: Regular rate and rhythm. No murmur. Lungs: Clear to auscultation bilaterally. No wheezes, rales, or rhonchi. Breathing is nonlabored. Abdomen: Soft, nontender, nondistended. Positive bowel sounds. Extremities: No lower extremity edema. Psych: Awakens, but does not answer questions. Procedures 10/05/16 right frontal twist drill for ventriculostomy placement 10/20/16 arterial line placement 10/23/16 bedside percutaneous tracheostomy under direct bronchoscopic visualization 10/24/16 PEG tube placement at bedside Urinary Catheter: Yes Assessment to: Continue Paul insert reason: Measure Accurate Output Vascular Central Line Catheter: Yes Assessment to: Continue Line: Central Venous Catheter Side: Right A/P Problem List: (1) 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 ICD Code: I60.8 Status: Acute (2) Hypertension ICD Code: I10 Status: Chronic (3) Major neurocognitive disorder due to vascular disease, without behavioral disturbance, severe ICD Code: F01.50 Status: Acute (4) Septic shock ICD Code: A41.9 Status: Resolved (5) Hydrocephalus ICD Code: G91.9 Status: Acute (6) Intracranial hemorrhage ICD Code: I62.9 Status: Acute (7) Major neurocognitive disorder as late effect of traumatic brain injury with behavioral disturbance ICD Code: S06.9X9S Status: Acute (8) Encephalopathy ICD Code: G93.40 Status: Acute (9) Sepsis ICD Code: A41.9 Status: Resolved (10) Pneumonia ICD Code: J18.9 Status: Acute (11) Protein-calorie malnutrition, mild ICD Code: E44.1 Status: Acute (12) Acute respiratory failure with hypoxia and hypercarbia ICD Code: J96.01 Status: Acute Assessment and Plan 1. Aneurysmal subarachnoid hemorrhage, occurred on 10/05/16: Appreciate neurosurgery recommendations. Okay for Lovenox per neurosurgery. Continue Keppra for seizure prophylaxis. 2. Encephalopathy: Secondary to above. 3. Acute hypoxic, hypercarbic respiratory failure: Tracheostomy 10/23/16. On T- piece. Continue supplemental oxygen. DuoNeb as needed, scheduled. Trach management per pulmonology. 4. Septic shock: Resolved. 5. Possible cerebral salt wasting: Continue sodium chloride tablets, Florinef, IV fluids. 6. Mild acute protein calorie malnutrition: Continue tube feedings. Monitor labs. 7. Pneumonia: Completed antibiotics. 8. C. difficile colitis: Continue Flagyl. Repeat C. difficile studies are negative. 9. Hyperglycemia of critical illness: Monitor Accu-Cheks and cover with sliding scale insulin. 10. DVT prophylaxis: SCDs, YOUSIF hose, Lovenox. 11. GI prophylaxis: Protonix. 12. Hydrocephalus: Plan for shunt placement per neurosurgery. Awaiting clearance of C. difficile. 13. Hypokalemia: Supplement potassium per electrolyte protocol. Problem Qualifiers (1) Hypertension: Qualified Code: I10 - Essential hypertension Enrique Mclain MD November 17, 2016 07:54
[2016-11-17] MEDS: ARTIFICIAL TEARS OPTH SOLN 15 ML BTL EACH EYE SCH ×3 (09:00→18:00)
[2016-11-17] MEDS: LACTOBACILLUS ACIDOPHILUS TAB PO SCH ×2 (09:41→21:15)
[2016-11-17] MEDS: hydrALAZINE HCL 50 MG TAB PO SCH ×2 (09:41→21:17)
[2016-11-17] MEDS: amLODIPine BESYLATE 5 MG TAB PO SCH (09:41)
[2016-11-17] MEDS: FLUDROCORTISONE ACETATE 0.1 MG TAB PO SCH ×2 (09:41→21:15)
[2016-11-17] MEDS: PRAVASTATIN SOD 40 MG TAB PO SCH (09:41)
[2016-11-17] MEDS: QUEtiapine FUMARATE 25 MG TAB PO SCH ×2 (09:41→13:24)
[2016-11-17] MEDS: NYSTATIN 100,000 U/GM PWD 15 GM BTL TOPICAL SCH ×3 (09:42→18:00)
[2016-11-17] MEDS: SODIUM CHLORIDE 0.9% FLUSH 10 ML FLUSH IV FLUSH SCH (09:42)
[2016-11-17] MEDS: PANTOPRAZOLE SODIUM 40 MG VIAL IV SCH (09:42)
[2016-11-17] MEDS: levETIRAcetam INJ 500 MG in SODIUM CHLORIDE 0.9% INJ 100 ML IV SCH ×2 (09:42→21:14)
--- NOTE | 2016-11-17 10:01 | HHI.NSPN ---
(Meir Sánchez ADMITTING COORDINATOR) Note Status Status: Progress Note (Meir Sánchez) Interval History Interval History 51 year old male presents with being brought in as a trauma alert due to a head injury with altered mental status and a diminished GCS. The patient was in the bathroom and fell and hit his head. This was an unwitnessed fall. According to the patient's the patient had been unresponsive for approximately 15 minutes by the time ambulance services arrived. When they arrived the patient was noted to be a GCS of 14, however his mentation would wax and wane and go down as low as 3 again. On arrival to the emergency department he felt extremely nauseated. The CT of the head revealed diffuse subarachnoid bleed. Emergently intubated in the trauma bay. Possible seizure activity. Intubated in the emergency room. 10/05/16: Endovascular coiling 10/07/16 rinse intubated and sedated. Ventriculostomy in place 10/09/16: Remains intubated and sedated. Increased agitation with attempts at sedation vacation 10/17/16: Pupils 2 mm. Intubated and sedated. Somewhat more responsive with decreased sedation. External ventricular drain and closed to reservoir again today. 10/19/16: TCD with vasospasm, to angio with 10 mg Verapamil IA given. 10/20/16: Patient with fevers up to 102.8 per Nursing and cultures sent, Nursing reports CSF milky & with sediment. TCD being repeated this afternoon due to vast difference from that done this morning and yesterday. Community Recreation Programmer increased SBP parameters to 180-200 mm Hg to help overcome vasospasms. No increase in ICP. 10/21/16: Still with elevated temp but not as high. TCD yesterday demonstrated resolution of vasospasms but today it demonstrated a right SRI vasospasm. Patient with facial grimacing and attempted eye opening. CSF specimen sent yesterday w/o any organisms or WBCs seen on Gram stain. 10/23/16: Trach done 10/24/16: PEG done at bedside prior to being seen. Nursing reports prior to sedation he was following commands to all extremities although right was weaker. Mild vasospasm per TCD. 10/25/16: No evident distress. Noted to move BLE & slight LUE spontaneously. Did open eyes partially after having been stimulated. TCD being done. 10/26/16: No evident distress, attempted eye opening to verbal & attempted to follow some commands, some spontaneous movements noted BLE & LUE. TCD being done. 10/27/16: No apparent distress, no eye opening, follows some commands. 10/28/16: Remains tracheed, NAD, follows some commands, spontaneous movement of BLE & LUE noted. 10/29/16: Remains stable follows some commands, spontaneous movement of BLE & LUE noted 10/31/16: Patient trached and on T-piece when seen, follows commands, spontaneous movement of extremities noted. Did attempt to mouth words. 11/01/16: Patient doing well, on T-piece, follows commands, moving both feet spontaneously. Nursing reports he is intermittently following command and mouthing words. 11/02/16: Patient continues to do well, on T-piece, follows some commands, he does turn his head in direction of practitioner's voice. 11/03/16: Patient doing quite well today, on T-piece, follows commands, opens eyes briefly and holds up two fingers on left hand to command and tries with right. 11/04/16: Patient initially seen this morning with Therapy at the bedside. He had his eyes open at the time and would do a hand squeeze to command. When seen later he would not open his eyes but did follow commands and was able to show two fingers with each hand to command. Nursing reported that the patient mouthed that the RUE was not working. 6: His mental status is improving, he follows commands 4. He is awaiting transfer to group home care facility. No acute events overnight. 7: slightly restless today, has transfer order out of unit pending. no changes to neuro checks overnight. 58: Patient doing well, follows some simple commands but not consistently 5: Patient remains stable, eyes are open, he nods yes when asked if he has a headache. CTA brain yesterday demonstrates enlarging ventricles with periventricular hypodensity characteristic of developing hydrocephalus. 5: Patient stable, does not open eyes to verbal stimuli but does follow commands. 11/10: Patient with stable neurological function. His eyes were initially open when seen but he kept them closed when examined although he did follow other commands. Infectious Disease saw the patient yesterday for a questionable drug- induced rash and signed off. Later in the day the patient had a positive PCR for Clostridium difficile and treatment was started. 11/11: Patient continues to be stable neurologically. He is seen spontaneously moving the right leg. 11/12/16: Pt opens eyes. Nods head to questions. Denies headache. States he is cold. 11/13/16: Pt Not opening eyes. Not following commands. Mouths ouch to pain. Spontaneously moves LEs intermittently. 11/14: Awake & alert, tracks with his eyes. Moving all extremities spontaneously and follows commands. 11/15: Awake & alert, moving all extremities spontaneously, follows commands. Pulse ox down to 85% due to T-piece being disconnected from trach when seen. Connected T-piece to trach and pulse ox up to 95%. 11/16: Patient awake & alert, watching TV, moving all extremities. 11/17: Patient awake & alert, fidgeting but no distress. (Meir Sánchez) Labs, Micro, & Vital Signs Results Allergies Coded Allergies Type Severity Reaction Last Updated Verified Penicillin Allergy Unknown 10/06/16 Yes Sulfa Allergy Unknown 10/06/16 Yes //175//175//175/// 06:00 18:00 06:00 18:00 06:00 18:00 Intake Total 2286 ml 723 ml 1897 ml 1087 ml 1507 ml Output Total 2350 ml 675.0 ml 1550.0 ml 600.0 ml 1450.0 ml Balance -64 ml 48.0 ml 347.0 ml 487.0 ml 57.0 ml IV Total 1786 ml 497 ml 1253 ml 438 ml 878 ml Tube Feeding 500 ml 26 ml 524 ml 589 ml 509 ml Tube Irrigant 120 ml 60 ml 120 ml Other 200 ml Output Urine Total 2350 ml 675 ml 1550 ml 600 ml 1450 ml Tube Feeding Residual Discard 0 ml 0 ml 0 ml 0 ml # Bowel Movements 1 1 2 2 0 Laboratory Tests Test 11/15/16 11/15/16 11/15/1616/17 05:48 12:10 15:55 19:17 White Blood Count 8.6 TH/MM3 Red Blood Count 3.28 MIL/MM3 Hemoglobin 9.2 GM/DL Hematocrit 28.3 % Mean Corpuscular Volume 86.3 FL Mean Corpuscular Hemoglobin 28.1 PG Mean Corpuscular Hemoglobin 32.6 % Concent Red Cell Distribution Width 14.9 % Platelet Count 205 TH/MM3 Mean Platelet Volume 9.0 FL Neutrophils (%) (Auto) 76.8 % Lymphocytes (%) (Auto) 11.5 % Monocytes (%) (Auto) 9.0 % Eosinophils (%) (Auto) 2.3 % Basophils (%) (Auto) 0.4 % Neutrophils # (Auto) 6.6 TH/MM3 Lymphocytes # (Auto) 1.0 TH/MM3 Monocytes # (Auto) 0.8 TH/MM3 Eosinophils # (Auto) 0.2 TH/MM3 Basophils # (Auto) 0.0 TH/MM3 CBC Comment DIFF FINAL Differential Comment Sodium Level 147 MEQ/L Potassium Level 2.2 MEQ/L 2.6 MEQ/L 2.6 MEQ/L Chloride Level 106 MEQ/L Carbon Dioxide Level 31.6 MEQ/L Anion Gap 9 MEQ/L Blood Urea Nitrogen 4 MG/DL Creatinine 0.60 MG/DL Estimat Glomerular Filtration 142 ML/MIN Rate Random Glucose 94 MG/DL Calcium Level 7.7 MG/DL Magnesium Level 1.8 MG/DL Stool C. difficile Toxin (PCR) NEGATIVE Stl C. difficile Toxin PRESUMPTIVE Epiderm 027 NEGATIVE Test 11/15/16 11/16/16 11/17/16 11/17/16 23:00 05:17 03:45 08:11 Stool C. difficile Toxin (PCR) NEGATIVE NEGATIVE Stl C. difficile Toxin PRESUMPTIVE PRESUMPTIVE Epiderm 027 NEGATIVE NEGATIVE White Blood Count 7.8 TH/MM3 7.4 TH/MM3 Red Blood Count 3.21 MIL/MM3 3.19 MIL/MM3 Hemoglobin 9.2 GM/DL 9.2 GM/DL Hematocrit 27.8 % 27.6 % Mean Corpuscular Volume 86.7 FL 86.6 FL Mean Corpuscular Hemoglobin 28.8 PG 29.0 PG Mean Corpuscular Hemoglobin 33.2 % 33.4 % Concent Red Cell Distribution Width 15.6 % 15.6 % Platelet Count 213 TH/MM3 214 TH/MM3 Mean Platelet Volume 8.8 FL 8.6 FL Neutrophils (%) (Auto) 72.9 % 71.1 % Lymphocytes (%) (Auto) 12.9 % 16.1 % Monocytes (%) (Auto) 10.4 % 8.8 % Eosinophils (%) (Auto) 3.4 % 3.5 % Basophils (%) (Auto) 0.4 % 0.5 % Neutrophils # (Auto) 5.7 TH/MM3 5.3 TH/MM3 Lymphocytes # (Auto) 1.0 TH/MM3 1.2 TH/MM3 Monocytes # (Auto) 0.8 TH/MM3 0.7 TH/MM3 Eosinophils # (Auto) 0.3 TH/MM3 0.3 TH/MM3 Basophils # (Auto) 0.0 TH/MM3 0.0 TH/MM3 CBC Comment DIFF FINAL DIFF FINAL Differential Comment Sodium Level 148 MEQ/L 146 MEQ/L Potassium Level 3.1 MEQ/L 3.1 MEQ/L Chloride Level 110 MEQ/L 110 MEQ/L Carbon Dioxide Level 31.4 MEQ/L 31.0 MEQ/L Anion Gap 7 MEQ/L 5 MEQ/L Blood Urea Nitrogen 4 MG/DL 5 MG/DL Creatinine 0.63 MG/DL 0.68 MG/DL Estimat Glomerular Filtration 134 ML/MIN 123 ML/MIN Rate Random Glucose 126 MG/DL 110 MG/DL Calcium Level 8.3 MG/DL 8.6 MG/DL Constitutional Vital Signs Date Time Temp Pulse Resp B/P Pulse Ox O2 Delivery O2 Flow Rate FiO2 11/17/16 09:20 99 T-piece 6.00 40 11/17/16 06:00 97 11/17/16 04:00 97 11/17/16 04:00 99.0 97 24 142/89 92 11/17/16 02:00 102 11/17/16 00:00 99.1 96 17 145/90 95 11/17/16 00:00 96 11/16/16 22:00 105 11/16/16 20:00 98 11/16/16 20:00 98.4 98 34 147/95 98 11/16/16 19:48 98 T-piece 28 11/16/16 19:00 95 T-Piece 5.00 35 11/16/16 18:00 88 11/16/16 16:00 90 11/16/16 16:00 98.0 90 22 114/64 99 11/16/16 14:00 88 11/16/16 12:00 106 11/16/16 12:00 98.9 106 26 114/76 97 11/16/16 10:00 108 11/17/16 07:00 Intake Total 2594 ml Output Total 2050.0 ml Balance 544.0 ml (Meir Sánchez) Review of Systems/Exam ROS He mouths "no" to headache, dizziness, numbness, tingling, shortness of breath, chest pain, abdominal pain, nausea or arm/leg pain. Exam Resp: Essentially clear breath sounds bilaterally, equal excursion, non-laboured , trached & on T-piece. CV: S1S2 w/RRR w/o M/G/R, radial & pedal pulses 2+ bilaterally, cap refill < 2 sec. Monitor is sinus rhythm w/o any ectopy noted GI: Abdomen soft, nontender, bowel sounds not appreciated, PEG tube with enteral feeds. : Paul cath to BSD. Neuro: Awake & alert. PERRLA, tracks. Mouthing words. Follows commands. Moving all extremities with some purpose. Shows thumbs up with right hand and two fingers with left hand to command. (Meir Sánchez) Medications Current Medications Current Medications Medications (Trade) Dose Ordered Sig/Nava Route Start Time Stop Time Status Last Admin (Tylenol) 650 mg Q6H PRN PO 10/05/16 02:45 11/13/16 22:08 (Protonix Inj) 40 mg DAILY IV 10/05/16 09:00 11/17/16 09:42 (Tears Naturale Opth Soln) 1 drop TID EACH EYE 10/05/16 09:00 11/16/16 20:18 (Zofran Inj) 4 mg Q6H PRN IV 10/05/16 02:45 11/06/16 20:58 Miscellaneous Information 1 [id number] XX 10/05/16 02:45 10/05/16 02:45 (Chlorhexidine 2% Cloth) Taper DAILY@04 TOP 10/05/16 04:00 10/01/17 03:59 11/16/16 03:28 Chlorhexidine Gluconate 3 pack 3 pack UNSCH PRN TOP 10/05/16 02:45 (Keppra Inj/NS Inj) 105 ml @ 420 mls/hr Q12HR IV 10/05/16 09:00 11/17/16 09:42 (Pravachol) 40 mg DAILY PO 10/05/16 09:00 11/17/16 09:41 (NS Flush) See Protocol DAILY IV FLUSH 10/07/16 09:00 11/17/16 09:42 (NS Flush) See Protocol UNSCH PRN IV FLUSH 10/06/16 12:00 Sodium Chloride UNSCH PRN IV FLUSH 10/06/16 12:00 11/04/16 20:46 Norepinephrine Bitartrate 4 mg/ Sodium Chloride 254 ml @ 0 mls/hr TITRATE IV 10/06/16 18:00 10/28/16 20:14 (NS 1000 ml Inj) 1,000 ml @ 60 mls/hr [id number] IV 10/21/16 08:30 11/16/16 15:33 (Florinef) 0.2 mg Q12HR PO 10/22/16 21:00 11/17/16 09:41 Enoxaparin Sodium 40 mg 40 mg Q24H SQ 10/23/16 21:00 11/16/16 20:26 Potassium Phosphate 30 mmol/ Sodium Chloride 260 ml @ 42 mls/hr UNSCH PRN IV 10/24/16 15:15 Potassium Chloride 100 ml @ 50 mls/hr Q2H PRN IV 11/03/16 05:15 11/17/16 08:27 (KCl 20 Meq Premix Inj) 100 ml @ 50 mls/hr Q2H PRN IV 11/03/16 05:15 Potassium Bicarb/ Potassium Chloride 50 meq 50 meq UNSCH PRN PO 11/03/16 05:15 Potassium Chloride 100 ml @ 25 mls/hr UNSCH PRN IV 11/03/16 05:15 11/05/16 04:42 Potassium Chloride 100 ml @ 50 mls/hr Q2H PRN IV 11/03/16 05:15 (Magnesium Sulfate Inj/NS Inj) 100 ml @ 50 mls/hr UNSCH PRN IV 11/03/16 05:15 Magnesium Oxide 800 mg 800 mg UNSCH PRN PO 11/03/16 05:15 (Magnesium Sulfate Inj/NS Inj) 100 ml @ 50 mls/hr UNSCH PRN IV 11/03/16 05:15 Potassium Phosphate 2000 mg 2,000 mg Q4H PRN PO 11/03/16 05:15 (Sodium Phosphate Inj/NS 250 ml Inj) 250 ml @ 42 mls/hr UNSCH PRN IV 11/03/16 05:15 (K-Phos) 2,000 mg UNSCH PRN PO/TUBE 11/03/16 05:15 (Trandate) 100 mg Q8H PO 11/03/16 20:00 11/17/16 03:18 (Apresoline) 50 mg Q12HR PO 11/03/16 19:00 11/17/16 09:41 (Norvasc) 5 mg DAILY PO 11/04/16 09:00 11/17/16 09:41 (Mycostatin Powder) 1 applic TID TOPICAL 11/06/16 09:00 11/17/16 09:42 (Lactinex) 1 tab Q12HR PO 11/06/16 21:00 11/17/16 09:41 (SEROquel) 25 mg BID@09,12 PO 11/07/16 09:00 11/17/16 09:41 (Colace Liq) 100 mg Q12H PRN G-TUBE 11/06/16 17:00 (Imodium) 2 mg UNSCH PRN PO 11/09/16 09:45 11/14/16 23:00 (Lomotil Tab) 1 tab Q6H PRN PO 11/09/16 09:45 (Flagyl) 500 mg Q8H PO 11/09/16 16:00 11/17/16 09:40 (Sodium Chloride) 2 gm Q8HR PO 11/16/16 14:00 11/17/16 05:11 (Benadryl Inj) 50 mg Q6H PRN IV 11/16/16 23:00 11/16/16 23:06 (Meir Sánchez) Medical Decision Making MDM Remarks 1. Neurological function stable, continues to improve 2. 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 Left basal ganglia region CVA primarily per CT 4. CSF cultures w/o any growth 5. Max temp 99.1 6. Enterobacter cloacae in sputum from 7. Hypokalemia 8. Hypernatremia 9. Hydrocephalus 10. Clostridium difficile infection, negative stool x3 (Meir Sánchez) Plan Plan Remarks Plan is to take patient to OR for a WAREHOUSE COORDINATOR shunt next week after tx'ing C diff infection Will obtain CT brain w/o contrast in AM Cognitive/speech therapy eval & tx Activity OOB to cardiac chair Continue PT & OT Continue abx per Surgical Community Recreation Programmer Continue Keppra for probable seizure activity Okay for Lovenox from NSGY standpoint Ulcer prophylaxis Keep SBP between 120-160 mm Hg From NSGY's perspective patient should be able to be transferred to inpatient rehab soon (Meir Sánchez) Attending Statement I have personally seen and examined the patient on the date of this note. Pertinent documentation and study results have been reviewed by the undersigned. I have personally developed the treatment plan and performed medical decision making. Agree with findings, exam, and treatment plan as noted above. Mental status improving steadily. Quite alert and interactive Plan follow-up CT scan head next week to determine if hydrocephalus persists, given his significant improvement in the past week. (Gino Mace MD) Meir Sánchez November 17, 2016 10:01 Gino Mace MD November 17, 2016 20:53
[2016-11-17] MEDS: SODIUM CHLOR 0.9% 1000 ML INJ 1,000 ML IV SCH (13:26)
--- NOTE | 2016-11-17 19:51 | HHI.PR ---
Subjective Remarks 51 YOWM with TBI,RF,Trach On trach collar Mod amount of trach secretions Opens eyes gets agitated Objective Vital Signs Vital Signs Date Time Temp Pulse Resp B/P Pulse Ox O2 Delivery O2 Flow Rate FiO2 11/17/16 19:24 96 T-piece 40 11/17/16 18:00 96 11/17/16 16:00 98.4 86 25 127/81 96 11/17/16 16:00 86 11/17/16 14:00 88 11/17/16 12:00 98.6 90 13 148/81 97 11/17/16 12:00 88 11/17/16 10:00 92 11/17/16 09:20 99 T-piece 6.00 40 11/17/16 08:00 96 11/17/16 08:00 98.4 96 17 152/70 96 11/17/16 07:00 96 T-Piece 5.00 35 11/17/16 06:00 97 11/17/16 04:00 97 11/17/16 04:00 99.0 97 24 142/89 92 11/17/16 02:00 102 11/17/16 00:00 99.1 96 17 145/90 95 11/17/16 00:00 96 11/16/16 22:00 105 11/16/16 20:00 98 11/16/16 20:00 98.4 98 34 147/95 98 I/O 11/16/16 11/16/16 11/16/16 11/17/16 11/17/16 11/17/16 07:00 15:00 23:00 07:00 15:00 23:00 Intake Total 1002 ml 1087 ml 557 ml 950 ml 1389 ml Output Total 1000 ml 600 ml 350 ml 1100 ml 1000 ml Balance 2 ml 487 ml 207 ml -150 ml 389 ml IV Total 571 ml 438 ml 377 ml 501 ml 844 ml Tube Feeding 311 ml 589 ml 120 ml 389 ml 395 ml Tube Irrigant 120 ml 60 ml 60 ml 60 ml 60 ml Other 90 ml Output Urine Total 1000 ml 600 ml 350 ml 1100 ml 1000 ml Tube Feeding Residual Discard 0 ml 0 ml 0 ml 0 ml # Bowel Movements 2 2 0 0 1 Result Diagram: 11/17/16 0345 11/17/16 0345 Objective Remarks GENERAL: WBWN male, on Trach collar SKIN: Warm and dry. HEAD: Normocephalic. EYES: No scleral icterus. No injection or drainage. NECK: Supple, trachea midline. No JVD or lymphadenopathy. Trach collar CARDIOVASCULAR: Regular rate and rhythm without murmurs, gallops, or rubs. RESPIRATORY: Breath sounds equal bilaterally. No accessory muscle use. GASTROINTESTINAL: Abdomen soft, non-tender, nondistended. PEG tube in place MUSCULOSKELETAL: No cyanosis, or edema. BACK: Nontender without obvious deformity. No CVA tenderness. A/P Assessment and Plan RF, s/p Trach Intracranial bleed Hydrocephalous HTN C.diff positive PLAN: Cont Flagyl Trach collar Plans for Shunt after C.diff clears Renard Virgen MD November 17, 2016 19:51
[2016-11-17] MEDS: ENOXAPARIN SODIUM 40 MG/0.4 ML SYRINGE SQ SCH (21:15)
[2016-11-18] VITALS (14 sets, daily range): BP systolic 124–156; BP diastolic 76–109; PULSE 86–97; RESP 15–29; TEMP 98.2–98.9; O2SAT 96–98
[2016-11-18] MEDS: metroNIDAZOLE 500 MG TAB PO SCH ×3 (00:21→15:36)
[2016-11-18] MEDS: SODIUM CHLOR 0.9% 1000 ML INJ 1,000 ML IV SCH (00:21)
[2016-11-18] MEDS: diphenhydrAMINE HCL 50 MG/ML VIAL IV PRN (00:25)
[2016-11-18] MEDS: POTASSIUM CHLOR 40 MEQ PREMIX 100 ML IV PRN (03:20)
[2016-11-18] MEDS: CHLORHEXIDINE GLUCONATE 2 % 1 PACK (2 CLOTHS) TOP SCH (03:21)
[2016-11-18] MEDS: LABETALOL HCL 100 MG TAB PO SCH ×3 (03:26→21:00)
[2016-11-18 04:18] LABS: BICARBONATE 31.8 MEQ/L (21.0-32.0); CALCIUM 8.5 MG/DL (8.5-10.1); CREATININE 0.68 MG/DL (0.60-1.30)
[2016-11-18 04:25] LABS: AUTOMATED NEUTROPHIL # 5.4 TH/MM3 (1.8-7.7); BASOPHIL % 0.6 % (0.0-2.0); EOSINOPHIL # 0.3 TH/MM3 (0-0.4); EOSINOPHIL % 4.5 % (0.0-4.0); HEMATOCRIT 28.3 % (39.0-51.0); HEMOGLOBIN 9.2 GM/DL (13.0-17.0); LYMPH % 15.9 % (9.0-44.0); LYMPHOCYTE # 1.2 TH/MM3 (1.0-4.8); MEAN CELL VOLUME 87.2 FL (80.0-100.0); MEAN CORPUSCULAR HEMOGLOBIN 28.3 PG (27.0-34.0); MEAN CORPUSCULAR HGB CONC 32.5 % (32.0-36.0); MEAN PLATELET VOLUME 8.9 FL (7.0-11.0); MONO % 8.8 % (0.0-8.0); MONOCYTE # 0.7 TH/MM3 (0-0.9); NEUT % 70.2 % (16.0-70.0); PLATELET COUNT 218 TH/MM3 (150-450); RED BLOOD COUNT 3.25 MIL/MM3 (4.50-5.90); RED CELL DISTRIBUTION WIDTH 15.1 % (11.6-17.2); WHITE BLOOD COUNT 7.7 TH/MM3 (4.0-11.0)
[2016-11-18] MEDS: SODIUM CHLORIDE 1 GRAM TAB PO SCH ×3 (06:11→21:05)
[2016-11-18] MEDS: PANTOPRAZOLE SODIUM 40 MG VIAL IV SCH (08:04)
[2016-11-18] MEDS: amLODIPine BESYLATE 5 MG TAB PO SCH (08:04)
[2016-11-18] MEDS: QUEtiapine FUMARATE 25 MG TAB PO SCH ×2 (08:05→13:01)
[2016-11-18] MEDS: hydrALAZINE HCL 50 MG TAB PO SCH ×2 (08:05→21:05)
[2016-11-18] MEDS: PRAVASTATIN SOD 40 MG TAB PO SCH (08:05)
[2016-11-18] MEDS: levETIRAcetam INJ 500 MG in SODIUM CHLORIDE 0.9% INJ 100 ML IV SCH ×2 (08:05→21:00)
[2016-11-18] MEDS: SODIUM CHLORIDE 0.9% FLUSH 10 ML FLUSH IV FLUSH SCH (08:05)
[2016-11-18] MEDS: LACTOBACILLUS ACIDOPHILUS TAB PO SCH ×2 (08:05→21:01)
[2016-11-18] MEDS: NYSTATIN 100,000 U/GM PWD 15 GM BTL TOPICAL SCH ×3 (08:06→18:45)
[2016-11-18] MEDS: FLUDROCORTISONE ACETATE 0.1 MG TAB PO SCH ×2 (08:06→21:01)
[2016-11-18] MEDS: ARTIFICIAL TEARS OPTH SOLN 15 ML BTL EACH EYE SCH ×3 (08:06→18:44)
--- NOTE | 2016-11-18 08:54 | HHI.PR ---
Subjective Remarks Follow up encephalopathy, hypokalemia, hydrocephalus, CDiff. Patient is more alert today. He answers questions by nodding. Denies pain. Objective Vitals Vital Signs Date Time Temp Pulse Resp B/P Pulse Ox O2 Delivery O2 Flow Rate FiO2 11/18/16 08:15 97 T-piece 5.00 40 11/18/16 06:00 96 11/18/16 04:00 98.6 97 17 143/82 97 11/18/16 04:00 97 11/18/16 02:00 94 11/18/16 00:00 95 11/18/16 00:00 98.8 95 29 142/86 96 11/17/16 22:00 94 11/17/16 20:00 91 11/17/16 20:00 98.4 92 23 157/89 97 11/17/16 19:24 96 T-piece 40 11/17/16 19:00 97 T-Piece 5.00 35 11/17/16 18:00 96 11/17/16 16:00 98.4 86 25 127/81 96 11/17/16 16:00 86 11/17/16 14:00 88 11/17/16 12:00 98.6 90 13 148/81 97 11/17/16 12:00 88 11/17/16 10:00 92 11/17/16 09:20 99 T-piece 6.00 40 I/O 11/17/16 11/17/16 11/17/16 11/18/16 11/18/16 11/18/16 07:00 15:00 23:00 07:00 15:00 23:00 Intake Total 950 ml 1389 ml 916 ml 1236 ml Output Total 1100 ml 1000 ml 1000 ml 1150 ml Balance -150 ml 389 ml -84 ml 86 ml IV Total 501 ml 844 ml 538 ml 617 ml Tube Feeding 389 ml 395 ml 318 ml 439 ml Tube Irrigant 60 ml 60 ml 60 ml 180 ml Other 90 ml Output Urine Total 1100 ml 1000 ml 1000 ml 1150 ml Tube Feeding Residual Discard 0 ml # Bowel Movements 0 1 1 0 Result Diagram: 11/18/16 0345 11/18/16 0345 Imaging Last Impressions Head CT 11/07/16 0000 Signed Impressions: Service Date/Time: Monday, November 07, 2016 10:51 - CONCLUSION: Enlarging ventricles with increasing periventricular hypodensity characteristic of developing hydrocephalus. Left thalamic infarct, minimal hemorrhage in the right sylvian fissure and minimal blood in the ventricles is again noted. No evidence of new infarct or parenchymal hemorrhage. Leonel Alva MD Chest X-Ray 11/01/16 0600 Signed Impressions: Service Date/Time: Tuesday, November 01, 2016 04:37 - CONCLUSION: 1. No acute cardiopulmonary disease. Trevin De León MD Transcranial Doppler Study Complete 10/26/16 0700 Signed Impressions: Service Date/Time: Wednesday, October 26, 2016 08:20 - CONCLUSION: Minimal interval improvement with no evidence for vasospasm. Christian oSng MD FACR Neck CTA 10/19/16 0000 Signed Impressions: Service Date/Time: Wednesday, October 19, 2016 14:19 - CONCLUSION: Negative for dissection or significant stenosis. Christian Song MD FACR Head CTA 10/19/16 0000 Signed Impressions: Service Date/Time: Wednesday, October 19, 2016 14:19 - CONCLUSION: 1. Interval development of significant vasospasm in the left MCA and SRI territories. 2. Mild vasospasm in the basilar artery.. Gume Mckeon MD Cerebral Arteriogram 10/19/16 0000 Signed Impressions: Service Date/Time: Wednesday, October 19, 2016 16:06 - CONCLUSION: 1. Vasospasm in the left MCA and SRI territories 2. Spasmolytic infusion, left internal carotid artery as above.. 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 Gume Mckeon MD Pelvis X-Ray 10/05/16 0110 Signed Impressions: Service Date/Time: Wednesday, October 05, 2016 01:22 - CONCLUSION: Unremarkable examination of the pelvis. Ruben Acuña Jr., MD Chest CT 10/05/16 0110 Signed Impressions: Service Date/Time: Wednesday, October 05, 2016 01:46 - CONCLUSION: 1. No acute intrathoracic abnormality. 2. Bibasilar atelectasis. 3. Cardiomegaly. 4. Prior granulomatous disease. Ruben Acuña Jr., MD Cervical Spine CT 10/05/16109 Signed Impressions: Service Date/Time: Wednesday, October 05, 2016 01:40 - CONCLUSION: 1. No fracture or dislocation. 2. Multilevel degenerative changes. Ruben Acuña Jr., MD Abdomen/Pelvis CT 10/05/16109 Signed Impressions: Service Date/Time: Wednesday, October 05, 2016 01:46 - CONCLUSION: 1. No acute trauma. 2. Rounded area of decreased density involving the pancreatic head. I cannot completely exclude pancreatic head mass. At some point MRI of the pancreas is suggested to further evaluate. 3. Focal area of poor enhancement involving the left kidney. This may relate to an area of parenchymal scarring. I cannot completely exclude a mass. This can be further assessed with MRI as well. Ruben Acuña Jr., MD Objective Remarks General: No acute distress. In soft wrist restraints. T-piece. Heart: Regular rate and rhythm. No murmur. Lungs: Clear to auscultation bilaterally. No wheezes, rales, or rhonchi. Breathing is nonlabored. Abdomen: Soft, nontender, nondistended. Positive bowel sounds. Extremities: No lower extremity edema. Psych: Awakens, but does not answer questions. Procedures 10/05/16 right frontal twist drill for ventriculostomy placement 10/20/16 arterial line placement 10/23/16 bedside percutaneous tracheostomy under direct bronchoscopic visualization 10/24/16 PEG tube placement at bedside Urinary Catheter: Yes Assessment to: Remove Vascular Central Line Catheter: Yes Assessment to: Continue Line: Central Venous Catheter Side: Right A/P Problem List: (1) 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 ICD Code: I60.8 Status: Acute (2) Hypertension ICD Code: I10 Status: Chronic (3) Major neurocognitive disorder due to vascular disease, without behavioral disturbance, severe ICD Code: F01.50 Status: Acute (4) Septic shock ICD Code: A41.9 Status: Resolved (5) Hydrocephalus ICD Code: G91.9 Status: Acute (6) Intracranial hemorrhage ICD Code: I62.9 Status: Acute (7) Major neurocognitive disorder as late effect of traumatic brain injury with behavioral disturbance ICD Code: S06.9X9S Status: Acute (8) Encephalopathy ICD Code: G93.40 Status: Acute (9) Sepsis ICD Code: A41.9 Status: Resolved (10) Pneumonia ICD Code: J18.9 Status: Acute (11) Protein-calorie malnutrition, mild ICD Code: E44.1 Status: Acute (12) Acute respiratory failure with hypoxia and hypercarbia ICD Code: J96.01 Status: Acute Assessment and Plan 1. Aneurysmal subarachnoid hemorrhage, occurred on 10/05/16: Appreciate neurosurgery recommendations. Okay for Lovenox per neurosurgery. Continue Keppra for seizure prophylaxis. 2. Encephalopathy: Secondary to above. Mental status is improving. 3. Acute hypoxic, hypercarbic respiratory failure: Tracheostomy 10/23/16. On T- piece. Continue supplemental oxygen. DuoNeb as needed, scheduled. Trach management per pulmonology. 4. Septic shock: Resolved. 5. Possible cerebral salt wasting: Continue sodium chloride tablets, Florinef. 6. Mild acute protein calorie malnutrition: Continue tube feedings. Monitor labs. 7. Pneumonia: Completed antibiotics. 8. C. difficile colitis: Continue Flagyl. Repeat C. difficile studies are negative. 9. Hyperglycemia of critical illness: Monitor Accu-Cheks and cover with sliding scale insulin. 10. DVT prophylaxis: SCDs, YOUSIF hose, Lovenox. 11. GI prophylaxis: Protonix. 12. Hydrocephalus: Plan for shunt placement per neurosurgery. Awaiting clearance of C. difficile. 13. Hypokalemia: Supplement potassium per electrolyte protocol. Problem Qualifiers (1) Hypertension: Qualified Code: I10 - Essential hypertension Enrique Mclain MD November 18, 2016 08:54
--- NOTE | 2016-11-18 09:16 | HHI.NSPN ---
(Meir Sánchez LUNCHEONETTE MANAGER) Note Status Status: Progress Note (Meir Sánchez) Interval History Interval History 51 year old male presents with being brought in as a trauma alert due to a head injury with altered mental status and a diminished GCS. The patient was in the bathroom and fell and hit his head. This was an unwitnessed fall. According to the patient's the patient had been unresponsive for approximately 15 minutes by the time ambulance services arrived. When they arrived the patient was noted to be a GCS of 14, however his mentation would wax and wane and go down as low as 3 again. On arrival to the emergency department he felt extremely nauseated. The CT of the head revealed diffuse subarachnoid bleed. Emergently intubated in the trauma bay. Possible seizure activity. Intubated in the emergency room. 10/05/16: Endovascular coiling 10/07/16 rinse intubated and sedated. Ventriculostomy in place 10/09/16: Remains intubated and sedated. Increased agitation with attempts at sedation vacation 10/17/16: Pupils 2 mm. Intubated and sedated. Somewhat more responsive with decreased sedation. External ventricular drain and closed to reservoir again today. 10/19/16: TCD with vasospasm, to angio with 10 mg Verapamil IA given. 10/20/16: Patient with fevers up to 102.8 per Nursing and cultures sent, Nursing reports CSF milky & with sediment. TCD being repeated this afternoon due to vast difference from that done this morning and yesterday. Supervisor Front increased SBP parameters to 180-200 mm Hg to help overcome vasospasms. No increase in ICP. 10/21/16: Still with elevated temp but not as high. TCD yesterday demonstrated resolution of vasospasms but today it demonstrated a right SRI vasospasm. Patient with facial grimacing and attempted eye opening. CSF specimen sent yesterday w/o any organisms or WBCs seen on Gram stain. 10/23/16: Trach done 10/24/16: PEG done at bedside prior to being seen. Nursing reports prior to sedation he was following commands to all extremities although right was weaker. Mild vasospasm per TCD. 10/25/16: No evident distress. Noted to move BLE & slight LUE spontaneously. Did open eyes partially after having been stimulated. TCD being done. 10/26/16: No evident distress, attempted eye opening to verbal & attempted to follow some commands, some spontaneous movements noted BLE & LUE. TCD being done. 10/27/16: No apparent distress, no eye opening, follows some commands. 10/28/16: Remains tracheed, NAD, follows some commands, spontaneous movement of BLE & LUE noted. 10/29/16: Remains stable follows some commands, spontaneous movement of BLE & LUE noted 10/31/16: Patient trached and on T-piece when seen, follows commands, spontaneous movement of extremities noted. Did attempt to mouth words. 11/01/16: Patient doing well, on T-piece, follows commands, moving both feet spontaneously. Nursing reports he is intermittently following command and mouthing words. 11/02/16: Patient continues to do well, on T-piece, follows some commands, he does turn his head in direction of practitioner's voice. 11/03/16: Patient doing quite well today, on T-piece, follows commands, opens eyes briefly and holds up two fingers on left hand to command and tries with right. 11/04/16: Patient initially seen this morning with Therapy at the bedside. He had his eyes open at the time and would do a hand squeeze to command. When seen later he would not open his eyes but did follow commands and was able to show two fingers with each hand to command. Nursing reported that the patient mouthed that the RUE was not working. 6: His mental status is improving, he follows commands 4. He is awaiting transfer to residential care facility. No acute events overnight. 7: slightly restless today, has transfer order out of unit pending. no changes to neuro checks overnight. 58: Patient doing well, follows some simple commands but not consistently 5: Patient remains stable, eyes are open, he nods yes when asked if he has a headache. CTA brain yesterday demonstrates enlarging ventricles with periventricular hypodensity characteristic of developing hydrocephalus. 5: Patient stable, does not open eyes to verbal stimuli but does follow commands. 11/10: Patient with stable neurological function. His eyes were initially open when seen but he kept them closed when examined although he did follow other commands. Infectious Disease saw the patient yesterday for a questionable drug- induced rash and signed off. Later in the day the patient had a positive PCR for Clostridium difficile and treatment was started. 11/11: Patient continues to be stable neurologically. He is seen spontaneously moving the right leg. 11/12/16: Pt opens eyes. Nods head to questions. Denies headache. States he is cold. 11/13/16: Pt Not opening eyes. Not following commands. Mouths ouch to pain. Spontaneously moves LEs intermittently. 11/14: Awake & alert, tracks with his eyes. Moving all extremities spontaneously and follows commands. 11/15: Awake & alert, moving all extremities spontaneously, follows commands. Pulse ox down to 85% due to T-piece being disconnected from trach when seen. Connected T-piece to trach and pulse ox up to 95%. 11/16: Patient awake & alert, watching TV, moving all extremities. 11/17: Patient awake & alert, fidgeting but no distress. 11/18: Patient seen this morning with eyes open prior to being seen but kept them shut when seen. He did follow commands and nodded appropriately to the ROS questions and mouthed words. (Meir Sánchez) Labs, Micro, & Vital Signs Results Allergies Coded Allergies Type Severity Reaction Last Updated Verified Penicillin Allergy Unknown 10/06/16 Yes Sulfa Allergy Unknown 10/06/16 Yes 11/16///175/18/175/18/175/19// 06: 18:00 06: 18: 06: 18:00 Intake Total 1897 ml 1087 ml 1507 ml 1389 ml 2152 ml 65 ml Output Total 1550.0 ml 600.0 ml 1450.0 ml 1000 ml 2150 ml Balance 347.0 ml 487.0 ml 57.0 ml 389 ml 2 ml 65 ml IV Total 1253 ml 438 ml 878 ml 844 ml 1155 ml Tube Feeding 524 ml 589 ml 509 ml 395 ml 757 ml Tube Irrigant 120 ml 60 ml 120 ml 60 ml 240 ml Other 90 ml 65 ml Output Urine Total 1550 ml 600 ml 1450 ml 1000 ml 2150 ml Tube Feeding Residual Discard 0 ml 0 ml 0 ml # Bowel Movements 2 2 0 1 1 Laboratory Tests Test 11/15/16 11/15/16 11/15/16 11/15/16 12:10 15:55 19:17 23:00 Stool C. difficile Toxin (PCR) NEGATIVE NEGATIVE Stl C. difficile Toxin PRESUMPTIVE PRESUMPTIVE Epiderm 027 NEGATIVE NEGATIVE Potassium Level 2.6 MEQ/L 2.6 MEQ/L Test 11/16/16 11/17/16 11/17/16 11/17/16 05:17 03:45 08:11 20:45 White Blood Count 7.8 TH/MM3 7.4 TH/MM3 Red Blood Count 3.21 MIL/MM3 3.19 MIL/MM3 Hemoglobin 9.2 GM/DL 9.2 GM/DL Hematocrit 27.8 % 27.6 % Mean Corpuscular Volume 86.7 FL 86.6 FL Mean Corpuscular Hemoglobin 28.8 PG 29.0 PG Mean Corpuscular Hemoglobin 33.2 % 33.4 % Concent Red Cell Distribution Width 15.6 % 15.6 % Platelet Count 213 TH/MM3 214 TH/MM3 Mean Platelet Volume 8.8 FL 8.6 FL Neutrophils (%) (Auto) 72.9 % 71.1 % Lymphocytes (%) (Auto) 12.9 % 16.1 % Monocytes (%) (Auto) 10.4 % 8.8 % Eosinophils (%) (Auto) 3.4 % 3.5 % Basophils (%) (Auto) 0.4 % 0.5 % Neutrophils # (Auto) 5.7 TH/MM3 5.3 TH/MM3 Lymphocytes # (Auto) 1.0 TH/MM3 1.2 TH/MM3 Monocytes # (Auto) 0.8 TH/MM3 0.7 TH/MM3 Eosinophils # (Auto) 0.3 TH/MM3 0.3 TH/MM3 Basophils # (Auto) 0.0 TH/MM3 0.0 TH/MM3 CBC Comment DIFF FINAL DIFF FINAL Differential Comment Sodium Level 148 MEQ/L 146 MEQ/L Potassium Level 3.1 MEQ/L 3.1 MEQ/L 3.3 MEQ/L Chloride Level 110 MEQ/L 110 MEQ/L Carbon Dioxide Level 31.4 MEQ/L 31.0 MEQ/L Anion Gap 7 MEQ/L 5 MEQ/L Blood Urea Nitrogen 4 MG/DL 5 MG/DL Creatinine 0.63 MG/DL 0.68 MG/DL Estimat Glomerular Filtration 134 ML/MIN 123 ML/MIN Rate Random Glucose 126 MG/DL 110 MG/DL Calcium Level 8.3 MG/DL 8.6 MG/DL Stool C. difficile Toxin (PCR) NEGATIVE Stl C. difficile Toxin PRESUMPTIVE Epiderm 027 NEGATIVE Test 11/18/16 03:45 White Blood Count 7.7 TH/MM3 Red Blood Count 3.25 MIL/MM3 Hemoglobin 9.2 GM/DL Hematocrit 28.3 % Mean Corpuscular Volume 87.2 FL Mean Corpuscular Hemoglobin 28.3 PG Mean Corpuscular Hemoglobin 32.5 % Concent Red Cell Distribution Width 15.1 % Platelet Count 218 TH/MM3 Mean Platelet Volume 8.9 FL Neutrophils (%) (Auto) 70.2 % Lymphocytes (%) (Auto) 15.9 % Monocytes (%) (Auto) 8.8 % Eosinophils (%) (Auto) 4.5 % Basophils (%) (Auto) 0.6 % Neutrophils # (Auto) 5.4 TH/MM3 Lymphocytes # (Auto) 1.2 TH/MM3 Monocytes # (Auto) 0.7 TH/MM3 Eosinophils # (Auto) 0.3 TH/MM3 Basophils # (Auto) 0.0 TH/MM3 CBC Comment DIFF FINAL Differential Comment Sodium Level 146 MEQ/L Potassium Level 3.3 MEQ/L Chloride Level 109 MEQ/L Carbon Dioxide Level 31.8 MEQ/L Anion Gap 5 MEQ/L Blood Urea Nitrogen 4 MG/DL Creatinine 0.68 MG/DL Estimat Glomerular Filtration 123 ML/MIN Rate Random Glucose 118 MG/DL Calcium Level 8.5 MG/DL Magnesium Level 2.0 MG/DL Constitutional Vital Signs Date Time Temp Pulse Resp B/P Pulse Ox O2 Delivery O2 Flow Rate FiO2 11/18/16 08:15 97 T-piece 5.00 40 11/18/16 08:00 98.9 92 16 140/96 97 11/18/16 06:00 96 11/18/16 04:00 98.6 97 17 143/82 97 11/18/16 04:00 97 11/18/16 02:00 94 11/18/16 00:00 95 11/18/16 00:00 98.8 95 29 142/86 96 11/17/16 22:00 94 11/17/16 20:00 91 11/17/16 20:00 98.4 92 23 157/89 97 11/17/16 19:24 96 T-piece 40 11/17/16 19:00 97 T-Piece 5.00 35 11/17/16 18:00 96 11/17/16 16:00 98.4 86 25 127/81 96 11/17/16 16:00 86 11/17/16 14:00 88 11/17/16 12:00 98.6 90 13 148/81 97 11/17/16 12:00 88 11/17/16 10:00 92 11/17/16 09:20 99 T-piece 6.00 40 11/18/16 07:00 Intake Total 3541 ml Output Total 3150 ml Balance 391 ml (Meir Sánchez) Review of Systems/Exam ROS He mouths "yes" to shortness of breath and some abdominal pain and "no" to headache, dizziness, numbness, tingling, chest pain, nausea or arm/leg pain. Exam Resp: Essentially clear breath sounds bilaterally, equal excursion, non-laboured , trached & on T-piece. CV: S1S2 w/RRR w/o M/G/R, radial & pedal pulses 2+ bilaterally, cap refill < 2 sec. Monitor is sinus rhythm w/o any ectopy noted GI: Abdomen soft, nontender, positive bowel sounds, PEG tube with enteral feeds. : Paul cath to BSD. Neuro: Awake & alert but does not open eyes. Nods head appropriately and mouthing words. Follows commands. Moving all extremities with some purpose. Shows thumbs up with left hand and two fingers with right hand and wiggles toes to command. (Meir Sánchez) Medications Current Medications Current Medications Medications (Trade) Dose Ordered Sig/Nava Route Start Time Stop Time Status Last Admin (Tylenol) 650 mg Q6H PRN PO 10/05/16 02:45 11/13/16 22:08 (Protonix Inj) 40 mg DAILY IV 10/05/16 09:00 11/18/16 08:04 (Tears Naturale Opth Soln) 1 drop TID EACH EYE 10/05/16 09:00 11/18/16 08:06 (Zofran Inj) 4 mg Q6H PRN IV 10/05/16 02:45 11/06/16 20:58 Miscellaneous Information 1 Q361D XX 10/05/16 02:45 10/05/16 02:45 (Chlorhexidine 2% Cloth) Taper DAILY@04 TOP 10/05/16 04:00 10/01/17 03:59 11/16/16 03:28 Chlorhexidine Gluconate 3 pack 3 pack UNSCH PRN TOP 10/05/16 02:45 (Keppra Inj/NS Inj) 105 ml @ 420 mls/hr Q12HR IV 10/05/16 09:00 11/18/16 08:05 (Pravachol) 40 mg DAILY PO 10/05/16 09:00 11/18/16 08:05 (NS Flush) See Protocol DAILY IV FLUSH 10/07/16 09:00 11/18/16 08:05 (NS Flush) See Protocol UNSCH PRN IV FLUSH 10/06/16 12:00 Sodium Chloride UNSCH PRN IV FLUSH 10/06/16 12:00 11/04/16 20:46 (Levophed Inj/NS 250 ml Inj) 254 ml @ 0 mls/hr TITRATE IV 10/06/16 18:00 10/28/16 20:14 (Florinef) 0.2 mg Q12HR PO 10/22/16 21:00 11/18/16 08:06 Enoxaparin Sodium 40 mg 40 mg Q24H SQ 10/23/16 21:00 11/17/16 21:15 Potassium Phosphate 30 mmol/ Sodium Chloride 260 ml @ 42 mls/hr UNSCH PRN IV 10/24/16 15:15 Potassium Chloride 100 ml @ 50 mls/hr Q2H PRN IV 11/03/16 05:15 11/17/16 08:27 (KCl 20 Meq Premix Inj) 100 ml @ 50 mls/hr Q2H PRN IV 11/03/16 05:15 Potassium Bicarb/ Potassium Chloride 50 meq 50 meq UNSCH PRN PO 11/03/16 05:15 Potassium Chloride 100 ml @ 25 mls/hr UNSCH PRN IV 11/03/16 05:15 11/18/16 03:20 Potassium Chloride 100 ml @ 50 mls/hr Q2H PRN IV 11/03/16 05:15 (Magnesium Sulfate Inj/NS Inj) 100 ml @ 50 mls/hr UNSCH PRN IV 11/03/16 05:15 Magnesium Oxide 800 mg 800 mg UNSCH PRN PO 11/03/16 05:15 (Magnesium Sulfate Inj/NS Inj) 100 ml @ 50 mls/hr UNSCH PRN IV 11/03/16 05:15 Potassium Phosphate 2000 mg 2,000 mg Q4H PRN PO 11/03/16 05:15 (Sodium Phosphate Inj/NS 250 ml Inj) 250 ml @ 42 mls/hr UNSCH PRN IV 11/03/16 05:15 (K-Phos) 2,000 mg UNSCH PRN PO/TUBE 11/03/16 05:15 (Trandate) 100 mg Q8H PO 11/03/16 20:00 11/18/16 03:26 (Apresoline) 50 mg Q12HR PO 11/03/16 19:00 11/18/16 08:05 (Norvasc) 5 mg DAILY PO 11/04/16 09:00 11/18/16 08:04 (Mycostatin Powder) 1 applic TID TOPICAL 11/06/16 09:00 11/18/16 08:06 (Lactinex) 1 tab Q12HR PO 11/06/16 21:00 11/18/16 08:05 (SEROquel) 25 mg BID@09,12 PO 11/07/16 09:00 11/18/16 08:05 (Colace Liq) 100 mg Q12H PRN G-TUBE 11/06/16 17:00 (Imodium) 2 mg UNSCH PRN PO 11/09/16 09:45 11/14/16 23:00 (Lomotil Tab) 1 tab Q6H PRN PO 11/09/16 09:45 (Flagyl) 500 mg Q8H PO 11/09/16 16:00 11/18/16 07:51 (Sodium Chloride) 2 gm Q8HR PO 11/16/16 14:00 11/18/16 06:11 (Benadryl Inj) 50 mg Q6H PRN IV 11/16/16 23:00 11/18/16 00:25 (Meir Sánchez) Medical Decision Making MDM Remarks 1. Neurological function stable, slowly improving 2. 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 Left basal ganglia region CVA primarily per CT 4. CSF cultures w/o any growth 5. Max temp 98.9 6. Enterobacter cloacae in sputum from 7. Hypokalemia 8. Hypernatremia 9. Hydrocephalus 10. Clostridium difficile infection, negative stool x3 after tx (Meir Sánchez) Plan Plan Remarks Plan is to take patient to OR for a ASSISTANT MANAGER QUALITY MANAGEMENT shunt next week after tx'ing C diff infection Will obtain CT brain w/o contrast on Cognitive/speech therapy eval & tx Activity OOB to cardiac chair Continue PT & OT Continue abx per Surgical Supervisor Front Continue Keppra for probable seizure activity Okay for Lovenox from NSGY standpoint Ulcer prophylaxis Keep SBP between 120-160 mm Hg From NSGY's perspective patient should be able to be transferred to inpatient rehab soon (Meir Sánchez) Attending Statement I have personally seen and examined the patient on 11/18/16. Pertinent documentation and study results have been reviewed by the undersigned. I have personally developed the treatment plan and performed medical decision making. Agree with findings, exam, and treatment plan as noted above. Mental status improved quite a bit over the past week. Repeat CT scan this week (Gino Mace MD) Meir Sánchze November 18, 2016 09:16 Gino Mace MD November 19, 2016 20:56
[2016-11-18] MEDS: POTASSIUM CHLOR 20 MEQ PREMIX 100 ML IV PRN ×2 (16:13→18:44)
--- NOTE | 2016-11-18 18:59 | HHI.PR ---
Subjective Remarks 51 YOWM with TBI,RF,Trach On trach collar Mod amount of trach secretions Opens eyes More awake, strong cough Objective Vital Signs Vital Signs Date Time Temp Pulse Resp B/P Pulse Ox O2 Delivery O2 Flow Rate FiO2 11/18/16 18:00 90 11/18/16 16:00 86 11/18/16 16:00 98.6 86 15 136/84 97 11/18/16 14:00 86 11/18/16 12:00 96 11/18/16 12:00 98.7 96 24 124/76 98 11/18/16 10:00 96 11/18/16 08:15 97 T-piece 5.00 40 11/18/16 08:00 98.9 92 16 140/96 97 11/18/16 08:00 92 11/18/16 07:00 97 T-Piece 5.00 35 11/18/16 06:00 96 11/18/16 04:00 98.6 97 17 143/82 97 11/18/16 04:00 97 11/18/16 02:00 94 11/18/16 00:00 95 11/18/16 00:00 98.8 95 29 142/86 96 11/17/16 22:00 94 11/17/16 20:00 91 11/17/16 20:00 98.4 92 23 157/89 97 11/17/16 19:24 96 T-piece 40 11/17/16 19:00 97 T-Piece 5.00 35 I/O 11/17/16 11/17/16 11/17/16 11/18/16 11/18/16 11/18/16 07:00 15:00 23:00 07:00 15:00 23:00 Intake Total 950 ml 1389 ml 916 ml 1236 ml 1092 ml 50 ml Output Total 1100 ml 1000 ml 1000 ml 1150 ml 560 ml Balance -150 ml 389 ml -84 ml 86 ml 532 ml 50 ml IV Total 501 ml 844 ml 538 ml 617 ml 484 ml Tube Feeding 389 ml 395 ml 318 ml 439 ml 483 ml Tube Irrigant 60 ml 60 ml 60 ml 180 ml Other 90 ml 125 ml 50 ml Output Urine Total 1100 ml 1000 ml 1000 ml 1150 ml 560 ml Tube Feeding Residual Discard 0 ml # Bowel Movements 0 1 1 0 0 1 Result Diagram: 11/18/16 0345 11/18/16 1320 Objective Remarks GENERAL: WBWN male, on Trach collar SKIN: Warm and dry. HEAD: Normocephalic. EYES: No scleral icterus. No injection or drainage. NECK: Supple, trachea midline. No JVD or lymphadenopathy. Trach collar CARDIOVASCULAR: Regular rate and rhythm without murmurs, gallops, or rubs. RESPIRATORY: Breath sounds equal bilaterally. No accessory muscle use. GASTROINTESTINAL: Abdomen soft, non-tender, nondistended. PEG tube in place MUSCULOSKELETAL: No cyanosis, or edema. BACK: Nontender without obvious deformity. No CVA tenderness. A/P Assessment and Plan RF, s/p Trach Intracranial bleed Hydrocephalous HTN C.diff positive PLAN: Cont Flagyl Trach collar Plans for Shunt after C.diff clears Renard Virgen MD November 18, 2016 18:58
[2016-11-18] MEDS: ENOXAPARIN SODIUM 40 MG/0.4 ML SYRINGE SQ SCH (21:01)
[2016-11-19] VITALS (14 sets, daily range): BP systolic 121–156; BP diastolic 73–90; PULSE 88–103; RESP 16–27; TEMP 97.2–99.4; O2SAT 92–97
[2016-11-19] MEDS: metroNIDAZOLE 500 MG TAB PO SCH ×3 (00:05→15:39)
[2016-11-19] MEDS: diphenhydrAMINE HCL 50 MG/ML VIAL IV PRN ×3 (00:05→20:17)
[2016-11-19] MEDS: POTASSIUM CHLOR 40 MEQ PREMIX 100 ML IV PRN (01:44)
[2016-11-19] MEDS: CHLORHEXIDINE GLUCONATE 2 % 1 PACK (2 CLOTHS) TOP SCH (03:38)
[2016-11-19] MEDS: LABETALOL HCL 100 MG TAB PO SCH ×3 (03:38→20:16)
[2016-11-19] MEDS: SODIUM CHLORIDE 1 GRAM TAB PO SCH ×3 (06:54→20:16)
[2016-11-19 07:12] LABS: AUTOMATED NEUTROPHIL # 6.3 TH/MM3 (1.8-7.7); BASOPHIL % 0.3 % (0.0-2.0); EOSINOPHIL # 0.3 TH/MM3 (0-0.4); EOSINOPHIL % 3.4 % (0.0-4.0); HEMATOCRIT 30.1 % (39.0-51.0); LYMPH % 11.8 % (9.0-44.0); MEAN CELL VOLUME 85.7 FL (80.0-100.0); MEAN CORPUSCULAR HEMOGLOBIN 28.5 PG (27.0-34.0); MEAN CORPUSCULAR HGB CONC 33.3 % (32.0-36.0); MONO % 8.2 % (0.0-8.0); MONOCYTE # 0.7 TH/MM3 (0-0.9); NEUT % 76.3 % (16.0-70.0); PLATELET COUNT 256 TH/MM3 (150-450); RED BLOOD COUNT 3.51 MIL/MM3 (4.50-5.90); WHITE BLOOD COUNT 8.2 TH/MM3 (4.0-11.0)
[2016-11-19 07:31] LABS: BICARBONATE 31.8 MEQ/L (21.0-32.0); CALCIUM 8.4 MG/DL (8.5-10.1); CREATININE 0.73 MG/DL (0.60-1.30)
[2016-11-19] MEDS: NYSTATIN 100,000 U/GM PWD 15 GM BTL TOPICAL SCH ×3 (08:02→18:07)
[2016-11-19] MEDS: amLODIPine BESYLATE 5 MG TAB PO SCH (08:02)
[2016-11-19] MEDS: PANTOPRAZOLE SODIUM 40 MG VIAL IV SCH (08:02)
[2016-11-19] MEDS: hydrALAZINE HCL 50 MG TAB PO SCH ×2 (08:02→20:16)
[2016-11-19] MEDS: QUEtiapine FUMARATE 25 MG TAB PO SCH ×2 (08:02→12:35)
[2016-11-19] MEDS: PRAVASTATIN SOD 40 MG TAB PO SCH (08:02)
[2016-11-19] MEDS: LACTOBACILLUS ACIDOPHILUS TAB PO SCH ×2 (08:02→20:16)
[2016-11-19] MEDS: levETIRAcetam INJ 500 MG in SODIUM CHLORIDE 0.9% INJ 100 ML IV SCH ×2 (08:02→20:16)
[2016-11-19] MEDS: ARTIFICIAL TEARS OPTH SOLN 15 ML BTL EACH EYE SCH ×3 (08:03→18:07)
[2016-11-19] MEDS: SODIUM CHLORIDE 0.9% FLUSH 10 ML FLUSH IV FLUSH SCH (08:03)
[2016-11-19] MEDS: FLUDROCORTISONE ACETATE 0.1 MG TAB PO SCH ×2 (09:07→20:16)
--- NOTE | 2016-11-19 10:09 | HHI.NSPN ---
(Meir Sánchez HIGH VALUE ASSOCIATE) Note Status Status: Progress Note (Meir Sánchez) Interval History Interval History 51 year old male presents with being brought in as a trauma alert due to a head injury with altered mental status and a diminished GCS. The patient was in the bathroom and fell and hit his head. This was an unwitnessed fall. According to the patient's the patient had been unresponsive for approximately 15 minutes by the time ambulance services arrived. When they arrived the patient was noted to be a GCS of 14, however his mentation would wax and wane and go down as low as 3 again. On arrival to the emergency department he felt extremely nauseated. The CT of the head revealed diffuse subarachnoid bleed. Emergently intubated in the trauma bay. Possible seizure activity. Intubated in the emergency room. 10/05/16: Endovascular coiling 10/07/16 rinse intubated and sedated. Ventriculostomy in place 10/09/16: Remains intubated and sedated. Increased agitation with attempts at sedation vacation 10/17/16: Pupils 2 mm. Intubated and sedated. Somewhat more responsive with decreased sedation. External ventricular drain and closed to reservoir again today. 10/19/16: TCD with vasospasm, to angio with 10 mg Verapamil IA given. 10/20/16: Patient with fevers up to 102.8 per Nursing and cultures sent, Nursing reports CSF milky & with sediment. TCD being repeated this afternoon due to vast difference from that done this morning and yesterday. Social Services Technician increased SBP parameters to 180-200 mm Hg to help overcome vasospasms. No increase in ICP. 10/21/16: Still with elevated temp but not as high. TCD yesterday demonstrated resolution of vasospasms but today it demonstrated a right SRI vasospasm. Patient with facial grimacing and attempted eye opening. CSF specimen sent yesterday w/o any organisms or WBCs seen on Gram stain. 10/23/16: Trach done 10/24/16: PEG done at bedside prior to being seen. Nursing reports prior to sedation he was following commands to all extremities although right was weaker. Mild vasospasm per TCD. 10/25/16: No evident distress. Noted to move BLE & slight LUE spontaneously. Did open eyes partially after having been stimulated. TCD being done. 10/26/16: No evident distress, attempted eye opening to verbal & attempted to follow some commands, some spontaneous movements noted BLE & LUE. TCD being done. 10/27/16: No apparent distress, no eye opening, follows some commands. 10/28/16: Remains tracheed, NAD, follows some commands, spontaneous movement of BLE & LUE noted. 10/29/16: Remains stable follows some commands, spontaneous movement of BLE & LUE noted 10/31/16: Patient trached and on T-piece when seen, follows commands, spontaneous movement of extremities noted. Did attempt to mouth words. 11/01/16: Patient doing well, on T-piece, follows commands, moving both feet spontaneously. Nursing reports he is intermittently following command and mouthing words. 11/02/16: Patient continues to do well, on T-piece, follows some commands, he does turn his head in direction of practitioner's voice. 11/03/16: Patient doing quite well today, on T-piece, follows commands, opens eyes briefly and holds up two fingers on left hand to command and tries with right. 11/04/16: Patient initially seen this morning with Therapy at the bedside. He had his eyes open at the time and would do a hand squeeze to command. When seen later he would not open his eyes but did follow commands and was able to show two fingers with each hand to command. Nursing reported that the patient mouthed that the RUE was not working. 6: His mental status is improving, he follows commands 4. He is awaiting transfer to longterm care facility. No acute events overnight. 7: slightly restless today, has transfer order out of unit pending. no changes to neuro checks overnight. 58: Patient doing well, follows some simple commands but not consistently 5: Patient remains stable, eyes are open, he nods yes when asked if he has a headache. CTA brain yesterday demonstrates enlarging ventricles with periventricular hypodensity characteristic of developing hydrocephalus. 5: Patient stable, does not open eyes to verbal stimuli but does follow commands. 11/10: Patient with stable neurological function. His eyes were initially open when seen but he kept them closed when examined although he did follow other commands. Infectious Disease saw the patient yesterday for a questionable drug- induced rash and signed off. Later in the day the patient had a positive PCR for Clostridium difficile and treatment was started. 11/11: Patient continues to be stable neurologically. He is seen spontaneously moving the right leg. 11/12/16: Pt opens eyes. Nods head to questions. Denies headache. States he is cold. 11/13/16: Pt Not opening eyes. Not following commands. Mouths ouch to pain. Spontaneously moves LEs intermittently. 11/14: Awake & alert, tracks with his eyes. Moving all extremities spontaneously and follows commands. 11/15: Awake & alert, moving all extremities spontaneously, follows commands. Pulse ox down to 85% due to T-piece being disconnected from trach when seen. Connected T-piece to trach and pulse ox up to 95%. 11/16: Patient awake & alert, watching TV, moving all extremities. 11/17: Patient awake & alert, fidgeting but no distress. 11/18: Patient seen this morning with eyes open prior to being seen but kept them shut when seen. He did follow commands and nodded appropriately to the ROS questions and mouthed words. 11/19: Patient wake this morning and fidgeting in bed. Nursing reports that during the night the patient was very agitated and pulling at his lines and remains restrained due to this. He receives Seroquel at 0900 and 1200 daily. He does follow commands. (Meir Sánchez) Labs, Micro, & Vital Signs Results Allergies Coded Allergies Type Severity Reaction Last Updated Verified Penicillin Allergy Unknown 10/06/16 Yes Sulfa Allergy Unknown 10/06/16 Yes 11/17/175/18/175/19/175/19/175/20// 06:00 18:00 06:00 18: 06: 18:00 Intake Total 1507 ml 1389 ml 2152 ml 1142 ml 1620 ml Output Total 1450.0 ml 1000 ml 2150 ml 560 ml 2275 ml Balance 57.0 ml 389 ml 2 ml 582 ml -655 ml IV Total 878 ml 844 ml 1155 ml 484 ml 603 ml Tube Feeding 509 ml 395 ml 757 ml 483 ml 777 ml Tube Irrigant 120 ml 60 ml 240 ml 240 ml Other 90 ml 175 ml Output Urine Total 1450 ml 1000 ml 2150 ml 560 ml 2275 ml Tube Feeding Residual Discard 0 ml # Voids 4 # Bowel Movements 0 1 1 1 3 Laboratory Tests Test 11/17/16 11/17/16 11/17/16 11/18/16 03:45 08:11 20:45 03:45 White Blood Count 7.4 TH/MM3 7.7 TH/MM3 Red Blood Count 3.19 MIL/MM3 3.25 MIL/MM3 Hemoglobin 9.2 GM/DL 9.2 GM/DL Hematocrit 27.6 % 28.3 % Mean Corpuscular Volume 86.6 FL 87.2 FL Mean Corpuscular Hemoglobin 29.0 PG 28.3 PG Mean Corpuscular Hemoglobin 33.4 % 32.5 % Concent Red Cell Distribution Width 15.6 % 15.1 % Platelet Count 214 TH/MM3 218 TH/MM3 Mean Platelet Volume 8.6 FL 8.9 FL Neutrophils (%) (Auto) 71.1 % 70.2 % Lymphocytes (%) (Auto) 16.1 % 15.9 % Monocytes (%) (Auto) 8.8 % 8.8 % Eosinophils (%) (Auto) 3.5 % 4.5 % Basophils (%) (Auto) 0.5 % 0.6 % Neutrophils # (Auto) 5.3 TH/MM3 5.4 TH/MM3 Lymphocytes # (Auto) 1.2 TH/MM3 1.2 TH/MM3 Monocytes # (Auto) 0.7 TH/MM3 0.7 TH/MM3 Eosinophils # (Auto) 0.3 TH/MM3 0.3 TH/MM3 Basophils # (Auto) 0.0 TH/MM3 0.0 TH/MM3 CBC Comment DIFF FINAL DIFF FINAL Differential Comment Sodium Level 146 MEQ/L 146 MEQ/L Potassium Level 3.1 MEQ/L 3.3 MEQ/L 3.3 MEQ/L Chloride Level 110 MEQ/L 109 MEQ/L Carbon Dioxide Level 31.0 MEQ/L 31.8 MEQ/L Anion Gap 5 MEQ/L 5 MEQ/L Blood Urea Nitrogen 5 MG/DL 4 MG/DL Creatinine 0.68 MG/DL 0.68 MG/DL Estimat Glomerular Filtration 123 ML/MIN 123 ML/MIN Rate Random Glucose 110 MG/DL 118 MG/DL Calcium Level 8.6 MG/DL 8.5 MG/DL Stool C. difficile Toxin (PCR) NEGATIVE Stl C. difficile Toxin PRESUMPTIVE Epiderm 027 NEGATIVE Magnesium Level 2.0 MG/DL Test 11/18/16 11/19/16 11/19/16 13:20 00:20 06:30 Potassium Level 3.4 MEQ/L 3.3 MEQ/L 3.7 MEQ/L White Blood Count 8.2 TH/MM3 Red Blood Count 3.51 MIL/MM3 Hemoglobin 10.0 GM/DL Hematocrit 30.1 % Mean Corpuscular Volume 85.7 FL Mean Corpuscular Hemoglobin 28.5 PG Mean Corpuscular Hemoglobin 33.3 % Concent Red Cell Distribution Width 15.0 % Platelet Count 256 TH/MM3 Mean Platelet Volume 9.0 FL Neutrophils (%) (Auto) 76.3 % Lymphocytes (%) (Auto) 11.8 % Monocytes (%) (Auto) 8.2 % Eosinophils (%) (Auto) 3.4 % Basophils (%) (Auto) 0.3 % Neutrophils # (Auto) 6.3 TH/MM3 Lymphocytes # (Auto) 1.0 TH/MM3 Monocytes # (Auto) 0.7 TH/MM3 Eosinophils # (Auto) 0.3 TH/MM3 Basophils # (Auto) 0.0 TH/MM3 CBC Comment DIFF FINAL Differential Comment Sodium Level 145 MEQ/L Chloride Level 105 MEQ/L Carbon Dioxide Level 31.8 MEQ/L Anion Gap 8 MEQ/L Blood Urea Nitrogen 5 MG/DL Creatinine 0.73 MG/DL Estimat Glomerular Filtration 113 ML/MIN Rate Random Glucose 127 MG/DL Calcium Level 8.4 MG/DL Constitutional Vital Signs Date Time Temp Pulse Resp B/P Pulse Ox O2 Delivery O2 Flow Rate FiO2 11/19/16 08:00 98.7 94 22 156/82 96 11/19/16 08:00 94 11/19/16 07:16 97 Trach Collar 28 11/19/16 07:00 96 Trach Collar 28 11/19/16 06:00 97 11/19/16 04:00 98.5 101 27 140/87 93 11/19/16 04:00 102 11/19/16 02:00 101 11/19/16 00:00 100 11/19/16 00:00 99.4 100 27 138/90 92 11/18/16 22:00 96 11/18/16 22:00 95 Trach Collar 5.00 28 11/18/16 20:28 98 Trach Collar 6.00 28 11/18/16 20:00 98.2 94 24 156/109 97 11/18/16 20:00 94 11/18/16 19:00 96 Trach Collar 5.00 35 11/18/16 18:00 90 11/18/16 16:00 86 11/18/16 16:00 98.6 86 15 136/84 97 11/18/16 14:00 86 11/18/16 12:00 96 11/18/16 12:00 98.7 96 24 124/76 98 11/18/16 10:00 96 11/19/16 07:00 Intake Total 2762 ml Output Total 2835 ml Balance -73 ml (Meir Sánchez) Review of Systems/Exam ROS Unable to obtain ROS, patient not responding to questions when seen. Exam Resp: Essentially clear breath sounds bilaterally, equal excursion, non-laboured , trached & on trach collar. CV: S1S2 w/RRR w/o M/G/R, radial & pedal pulses 2+ bilaterally, cap refill < 2 sec. Monitor is sinus rhythm w/o any ectopy noted GI: Abdomen soft, nontender, positive bowel sounds, PEG tube with enteral feeds. : Condom cath to BSD. Neuro: Awake & alert with eyes opne. Tried to mouth words once but stopped. Follows commands. Moving all extremities with some purpose. Shows thumbs up with both hands, wiggles toes and lifts knees off bed to command. (Meir Sánchez) Medications Current Medications Current Medications Medications (Trade) Dose Ordered Sig/Nava Route Start Time Stop Time Status Last Admin (Tylenol) 650 mg Q6H PRN PO 10/05/16 02:45 11/13/16 22:08 (Protonix Inj) 40 mg DAILY IV 10/05/16 09:00 11/19/16 08:02 (Tears Naturale Opth Soln) 1 drop TID EACH EYE 10/05/16 09:00 11/19/16 08:03 (Zofran Inj) 4 mg Q6H PRN IV 10/05/16 02:45 11/06/16 20:58 Miscellaneous Information 1 Q361D XX 10/05/16 02:45 10/05/16 02:45 (Chlorhexidine 2% Cloth) Taper DAILY@04 TOP 10/05/16 04:00 10/01/17 03:59 11/16/16 03:28 Chlorhexidine Gluconate 3 pack 3 pack UNSCH PRN TOP 10/05/16 02:45 (Keppra Inj/NS Inj) 105 ml @ 420 mls/hr Q12HR IV 10/05/16 09:00 11/19/16 08:02 (Pravachol) 40 mg DAILY PO 10/05/16 09:00 11/19/16 08:02 (NS Flush) See Protocol DAILY IV FLUSH 10/07/16 09:00 11/19/16 08:03 (NS Flush) See Protocol UNSCH PRN IV FLUSH 10/06/16 12:00 Sodium Chloride UNSCH PRN IV FLUSH 10/06/16 12:00 11/04/16 20:46 (Levophed Inj/NS 250 ml Inj) 254 ml @ 0 mls/hr TITRATE IV 10/06/16 18:00 10/28/16 20:14 (Florinef) 0.2 mg Q12HR PO 10/22/16 21:00 11/19/16 09:07 Enoxaparin Sodium 40 mg 40 mg Q24H SQ 10/23/16 21:00 11/18/16 21:01 Potassium Phosphate 30 mmol/ Sodium Chloride 260 ml @ 42 mls/hr UNSCH PRN IV 10/24/16 15:15 Potassium Chloride 100 ml @ 50 mls/hr Q2H PRN IV 11/03/16 05:15 11/17/16 08:27 (KCl 20 Meq Premix Inj) 100 ml @ 50 mls/hr Q2H PRN IV 11/03/16 05:15 Potassium Bicarb/ Potassium Chloride 50 meq 50 meq UNSCH PRN PO 11/03/16 05:15 Potassium Chloride 100 ml @ 25 mls/hr UNSCH PRN IV 11/03/16 05:15 11/19/16 01:44 Potassium Chloride 100 ml @ 50 mls/hr Q2H PRN IV 11/03/16 05:15 11/18/16 18:44 (Magnesium Sulfate Inj/NS Inj) 100 ml @ 50 mls/hr UNSCH PRN IV 11/03/16 05:15 Magnesium Oxide 800 mg 800 mg UNSCH PRN PO 11/03/16 05:15 (Magnesium Sulfate Inj/NS Inj) 100 ml @ 50 mls/hr UNSCH PRN IV 11/03/16 05:15 Potassium Phosphate 2000 mg 2,000 mg Q4H PRN PO 11/03/16 05:15 (Sodium Phosphate Inj/NS 250 ml Inj) 250 ml @ 42 mls/hr UNSCH PRN IV 11/03/16 05:15 (K-Phos) 2,000 mg UNSCH PRN PO/TUBE 11/03/16 05:15 (Trandate) 100 mg Q8H PO 11/03/16 20:00 11/19/16 03:38 (Apresoline) 50 mg Q12HR PO 11/03/16 19:00 11/19/16 08:02 (Norvasc) 5 mg DAILY PO 11/04/16 09:00 11/19/16 08:02 (Mycostatin Powder) 1 applic TID TOPICAL 11/06/16 09:00 11/19/16 08:02 (Lactinex) 1 tab Q12HR PO 11/06/16 21:00 11/19/16 08:02 (SEROquel) 25 mg BID@09,12 PO 11/07/16 09:00 11/19/16 08:02 (Colace Liq) 100 mg Q12H PRN G-TUBE 11/06/16 17:00 (Imodium) 2 mg UNSCH PRN PO 11/09/16 09:45 11/14/16 23:00 (Lomotil Tab) 1 tab Q6H PRN PO 11/09/16 09:45 (Flagyl) 500 mg Q8H PO 11/09/16 16:00 11/19/16 06:54 (Sodium Chloride) 2 gm Q8HR PO 11/16/16 14:00 11/19/16 06:54 (Benadryl Inj) 50 mg Q6H PRN IV 11/16/16 23:00 11/19/16 08:02 (Meir Sánchez) Medical Decision Making MDM Remarks 1. Neurological function stable, slowly improving 2. 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 Left basal ganglia region CVA primarily per CT 4. CSF cultures w/o any growth 5. Max temp 99.4 6. Enterobacter cloacae in sputum from 7. Hypokalemia, resolved 8. Hypernatremia, resolved 9. Hydrocephalus 10. Clostridium difficile infection, negative stool x3 after tx (Meir Sánchez) Plan Plan Remarks Plan is to take patient to OR for a [employer] shunt next week after tx'ing C diff infection Will obtain CT brain w/o contrast on Cognitive/speech therapy eval & tx Activity OOB to cardiac chair Continue PT & OT Continue abx per Surgical Social Services Technician Continue Keppra for probable seizure activity Okay for Lovenox from NSGY standpoint Ulcer prophylaxis Keep SBP between 120-160 mm Hg From NSGY's perspective patient should be able to be transferred to inpatient rehab soon (Meir Sánchez) Attending Statement I have personally seen and examined the patient on 11/19/16. Pertinent documentation and study results have been reviewed by the undersigned. I have personally developed the treatment plan and performed medical decision making. Agree with findings, exam, and treatment plan as noted above. Will proceed with repeat CT scan to make decision regarding ventriculoperitoneal shunt prior to rehabilitation placement. (Gino Mace MD) Meir Sánchez November 19, 2016 10:08 Gino Mace MD November 19, 2016 20:57
--- NOTE | 2016-11-19 14:06 | HHI.PR ---
Subjective Remarks Follow up hydrocephalus, hypokalemia, C. difficile, encephalopathy. Patient is sleeping. Nursing reports that the patient sleeps a lot during the day and is awake much of the night. He does awaken, but does not answer questions and falls right back to sleep. Objective Vitals Vital Signs Date Time Temp Pulse Resp B/P Pulse Ox O2 Delivery O2 Flow Rate FiO2 11/19/16 14:00 89 11/19/16 12:00 90 11/19/16 12:00 98.7 90 19 121/73 97 11/19/16 10:00 98 11/19/16 08:00 98.7 94 22 156/82 96 11/19/16 08:00 94 11/19/16 07:16 97 Trach Collar 28 11/19/16 07:00 96 Trach Collar 28 11/19/16 06:00 97 11/19/16 04:00 98.5 101 27 140/87 93 11/19/16 04:00 102 11/19/16 02:00 101 11/19/16 00:00 100 11/19/16 00:00 99.4 100 27 138/90 92 11/18/16 22:00 96 11/18/16 22:00 95 Trach Collar 5.00 28 11/18/16 20:28 98 Trach Collar 6.00 28 11/18/16 20:00 98.2 94 24 156/109 97 11/18/16 20:00 94 11/18/16 19:00 96 Trach Collar 5.00 35 11/18/16 18:00 90 11/18/16 16:00 86 11/18/16 16:00 98.6 86 15 136/84 97 I/O 11/18/16 11/18/16 11/18/16 11/19/16 11/19/16 11/19/16 07:00 15:00 23:00 07:00 15:00 23:00 Intake Total 1236 ml 1092 ml 990 ml 680 ml 552 ml Output Total 1150 ml 560 ml 800 ml 1475 ml 800 ml Balance 86 ml 532 ml 190 ml -795 ml -248 ml IV Total 617 ml 484 ml 428 ml 175 ml 123 ml Tube Feeding 439 ml 483 ml 392 ml 385 ml 369 ml Tube Irrigant 180 ml 120 ml 120 ml 60 ml Other 125 ml 50 ml Output Urine Total 1150 ml 560 ml 800 ml 1475 ml 800 ml # Voids 3 1 # Bowel Movements 0 0 3 1 0 Result Diagram: 11/19/16 0630 11/19/16 0630 Imaging Last Impressions Head CT 11/07/16 0000 Signed Impressions: Service Date/Time: Monday, November 07, 2016 10:51 - CONCLUSION: Enlarging ventricles with increasing periventricular hypodensity characteristic of developing hydrocephalus. Left thalamic infarct, minimal hemorrhage in the right sylvian fissure and minimal blood in the ventricles is again noted. No evidence of new infarct or parenchymal hemorrhage. Leonel Alva MD Chest X-Ray 11/01/16 0600 Signed Impressions: Service Date/Time: Tuesday, November 01, 2016 04:37 - CONCLUSION: 1. No acute cardiopulmonary disease. Trevin De León MD Transcranial Doppler Study Complete 10/26/16 0700 Signed Impressions: Service Date/Time: Wednesday, October 26, 2016 08:20 - CONCLUSION: Minimal interval improvement with no evidence for vasospasm. Christian Song MD FACR Neck CTA 10/19/16 0000 Signed Impressions: Service Date/Time: Wednesday, October 19, 2016 14:19 - CONCLUSION: Negative for dissection or significant stenosis. Christian Song MD FACR Head CTA 10/19/16 0000 Signed Impressions: Service Date/Time: Wednesday, October 19, 2016 14:19 - CONCLUSION: 1. Interval development of significant vasospasm in the left MCA and SRI territories. 2. Mild vasospasm in the basilar artery.. Gume Mckeon MD Cerebral Arteriogram 10/19/16 0000 Signed Impressions: Service Date/Time: Wednesday, October 19, 2016 16:06 - CONCLUSION: 1. Vasospasm in the left MCA and SRI territories 2. Spasmolytic infusion, left internal carotid artery as above.. 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 Gume Mckeon MD Pelvis X-Ray 10/05/16 0110 Signed Impressions: Service Date/Time: Wednesday, October 05, 2016 01:22 - CONCLUSION: Unremarkable examination of the pelvis. Ruben Acuña Jr., MD Chest CT 10/05/16109 Signed Impressions: Service Date/Time: Wednesday, October 05, 2016 01:46 - CONCLUSION: 1. No acute intrathoracic abnormality. 2. Bibasilar atelectasis. 3. Cardiomegaly. 4. Prior granulomatous disease. Ruben Acuña Jr., MD Cervical Spine CT 10/05/16109 Signed Impressions: Service Date/Time: Wednesday, October 05, 2016 01:40 - CONCLUSION: 1. No fracture or dislocation. 2. Multilevel degenerative changes. Ruben Acuña Jr., MD Abdomen/Pelvis CT 10/05/16109 Signed Impressions: Service Date/Time: Wednesday, October 05, 2016 01:46 - CONCLUSION: 1. No acute trauma. 2. Rounded area of decreased density involving the pancreatic head. I cannot completely exclude pancreatic head mass. At some point MRI of the pancreas is suggested to further evaluate. 3. Focal area of poor enhancement involving the left kidney. This may relate to an area of parenchymal scarring. I cannot completely exclude a mass. This can be further assessed with MRI as well. Ruben Acuña Jr., MD Objective Remarks General: No acute distress. In soft wrist restraints. T-piece. Heart: Regular rate and rhythm. No murmur. Lungs: Clear to auscultation bilaterally. No wheezes, rales, or rhonchi. Breathing is nonlabored. Abdomen: Soft, nontender, nondistended. Positive bowel sounds. Extremities: No lower extremity edema. Psych: Awakens, but does not answer questions. Procedures 10/05/16 right frontal twist drill for ventriculostomy placement 10/20/16 arterial line placement 10/23/16 bedside percutaneous tracheostomy under direct bronchoscopic visualization 10/24/16 PEG tube placement at bedside Urinary Catheter: No Vascular Central Line Catheter: Yes Line: Central Venous Catheter Side: Right A/P Problem List: (1) 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 ICD Code: I60.8 Status: Acute (2) Hypertension ICD Code: I10 Status: Chronic (3) Major neurocognitive disorder due to vascular disease, without behavioral disturbance, severe ICD Code: F01.50 Status: Acute (4) Septic shock ICD Code: A41.9 Status: Resolved (5) Hydrocephalus ICD Code: G91.9 Status: Acute (6) Intracranial hemorrhage ICD Code: I62.9 Status: Acute (7) Major neurocognitive disorder as late effect of traumatic brain injury with behavioral disturbance ICD Code: S06.9X9S Status: Acute (8) Encephalopathy ICD Code: G93.40 Status: Acute (9) Sepsis ICD Code: A41.9 Status: Resolved (10) Pneumonia ICD Code: J18.9 Status: Acute (11) Protein-calorie malnutrition, mild ICD Code: E44.1 Status: Acute (12) Acute respiratory failure with hypoxia and hypercarbia ICD Code: J96.01 Status: Acute Assessment and Plan 1. Aneurysmal subarachnoid hemorrhage, occurred on 10/05/16: Appreciate neurosurgery recommendations. Okay for Lovenox per neurosurgery. Continue Keppra for seizure prophylaxis. 2. Encephalopathy: Secondary to above. Mental status is improving slowly. 3. Acute hypoxic, hypercarbic respiratory failure: Tracheostomy 10/23/16. On T- piece. Continue supplemental oxygen. DuoNeb as needed, scheduled. Trach management per pulmonology. 4. Septic shock: Resolved. 5. Possible cerebral salt wasting: Continue sodium chloride tablets, Florinef. 6. Mild acute protein calorie malnutrition: Continue tube feedings. Monitor labs. 7. Pneumonia: Completed antibiotics. 8. C. difficile colitis: Continue Flagyl. Repeat C. difficile studies are negative. 9. Hyperglycemia of critical illness: Improved. 10. DVT prophylaxis: SCDs, YOUSIF hose, Lovenox. 11. GI prophylaxis: Protonix. 12. Hydrocephalus: Plan for shunt placement per neurosurgery. Awaiting clearance of C. difficile. 13. Hypokalemia: Improved. Problem Qualifiers (1) Hypertension: Qualified Code: I10 - Essential hypertension Enrique Mclain MD November 19, 2016 14:06
--- NOTE | 2016-11-19 16:15 | HHI.PR ---
Subjective Remarks ON O2 NO DISTRESS TRACH IN PLACE Objective Vital Signs Date Time Temp Pulse Resp B/P Pulse Ox O2 Delivery O2 Flow Rate FiO2 11/19/16 14:00 89 11/19/16 12:00 90 11/19/16 12:00 98.7 90 19 121/73 97 11/19/16 10:00 98 11/19/16 08:00 98.7 94 22 156/82 96 11/19/16 08:00 94 11/19/16 07:16 97 Trach Collar 28 11/19/16 07:00 96 Trach Collar 28 11/19/16 06:00 97 11/19/16 04:00 98.5 101 27 140/87 93 11/19/16 04:00 102 11/19/16 02:00 101 11/19/16 00:00 100 11/19/16 00:00 99.4 100 27 138/90 92 11/18/16 22:00 96 11/18/16 22:00 95 Trach Collar 5.00 28 11/18/16 20:28 98 Trach Collar 6.00 28 11/18/16 20:00 98.2 94 24 156/109 97 11/18/16 20:00 94 11/18/16 19:00 96 Trach Collar 5.00 35 11/18/16 18:00 90 I/O 11/18/16 11/18/16 11/18/16 11/19/16 11/19/16 11/19/16 06:59 14:59 22:59 06:59 14:59 22:59 Intake Total 1236 ml 1092 ml 990 ml 680 ml 552 ml Output Total 1150 ml 560 ml 800 ml 1475 ml 800 ml Balance 86 ml 532 ml 190 ml -795 ml -248 ml IV Total 617 ml 484 ml 428 ml 175 ml 123 ml Tube Feeding 439 ml 483 ml 392 ml 385 ml 369 ml Tube Irrigant 180 ml 120 ml 120 ml 60 ml Other 125 ml 50 ml Output Urine Total 1150 ml 560 ml 800 ml 1475 ml 800 ml # Voids 3 1 # Bowel Movements 0 0 3 1 0 Result Diagram: 11/19/16 0630 11/19/16 0630 Imaging Last Impressions Head CT 11/07/16 0000 Signed Impressions: Service Date/Time: Monday, November 07, 2016 10:51 - CONCLUSION: Enlarging ventricles with increasing periventricular hypodensity characteristic of developing hydrocephalus. Left thalamic infarct, minimal hemorrhage in the right sylvian fissure and minimal blood in the ventricles is again noted. No evidence of new infarct or parenchymal hemorrhage. Leonel Alva MD Chest X-Ray 11/01/16 0600 Signed Impressions: Service Date/Time: Tuesday, November 01, 2016 04:37 - CONCLUSION: 1. No acute cardiopulmonary disease. Trevin De León MD Transcranial Doppler Study Complete 10/26/16 0700 Signed Impressions: Service Date/Time: Wednesday, October 26, 2016 08:20 - CONCLUSION: Minimal interval improvement with no evidence for vasospasm. Christian Song MD FACR Neck CTA 10/19/16 0000 Signed Impressions: Service Date/Time: Wednesday, October 19, 2016 14:19 - CONCLUSION: Negative for dissection or significant stenosis. Christian Song MD FACR Head CTA 10/19/16 0000 Signed Impressions: Service Date/Time: Wednesday, October 19, 2016 14:19 - CONCLUSION: 1. Interval development of significant vasospasm in the left MCA and SRI territories. 2. Mild vasospasm in the basilar artery.. Gume Mckeon MD Cerebral Arteriogram 10/19/16 0000 Signed Impressions: Service Date/Time: Wednesday, October 19, 2016 16:06 - CONCLUSION: 1. Vasospasm in the left MCA and SRI territories 2. Spasmolytic infusion, left internal carotid artery as above.. 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 Gume Mckeon MD Pelvis X-Ray 10/05/16 0110 Signed Impressions: Service Date/Time: Wednesday, October 05, 2016 01:22 - CONCLUSION: Unremarkable examination of the pelvis. Ruben Acuña Jr., MD Chest CT 10/05/16 0110 Signed Impressions: Service Date/Time: Wednesday, October 05, 2016 01:46 - CONCLUSION: 1. No acute intrathoracic abnormality. 2. Bibasilar atelectasis. 3. Cardiomegaly. 4. Prior granulomatous disease. Ruben Acuña Jr., MD Cervical Spine CT 10/05/16109 Signed Impressions: Service Date/Time: Wednesday, October 05, 2016 01:40 - CONCLUSION: 1. No fracture or dislocation. 2. Multilevel degenerative changes. Ruben Acuña Jr., MD Abdomen/Pelvis CT 10/05/16109 Signed Impressions: Service Date/Time: Wednesday, October 05, 2016 01:46 - CONCLUSION: 1. No acute trauma. 2. Rounded area of decreased density involving the pancreatic head. I cannot completely exclude pancreatic head mass. At some point MRI of the pancreas is suggested to further evaluate. 3. Focal area of poor enhancement involving the left kidney. This may relate to an area of parenchymal scarring. I cannot completely exclude a mass. This can be further assessed with MRI as well. Ruben Acuña Jr., MD Assessment and Plan Assessment and Plan RESPIRATORY FAILUE S/P TRACHEOSTOMY IC BLEED PLAN O2 NEEDED PULM TOILET Elian Plummer MD November 19, 2016 16:15
[2016-11-19] MEDS: ENOXAPARIN SODIUM 40 MG/0.4 ML SYRINGE SQ SCH (20:16)
[2016-11-19] MEDS: ACETAMINOPHEN 325 MG TAB PO PRN (20:43)
[2016-11-20] VITALS (15 sets, daily range): BP systolic 111–154; BP diastolic 74–111; PULSE 87–103; RESP 16–26; TEMP 98–98.9; O2SAT 93–96
[2016-11-20] MEDS: metroNIDAZOLE 500 MG TAB PO SCH ×4 (00:06→22:33)
[2016-11-20] MEDS: diphenhydrAMINE HCL 50 MG/ML VIAL IV PRN ×3 (00:48→23:55)
[2016-11-20] MEDS: CHLORHEXIDINE GLUCONATE 2 % 1 PACK (2 CLOTHS) TOP SCH (04:00)
[2016-11-20] MEDS: SODIUM CHLORIDE 1 GRAM TAB PO SCH ×3 (04:16→22:33)
[2016-11-20] MEDS: LABETALOL HCL 100 MG TAB PO SCH ×3 (04:16→19:14)
[2016-11-20 04:20] LABS: AUTOMATED NEUTROPHIL # 5.2 TH/MM3 (1.8-7.7); BASOPHIL # 0.1 TH/MM3 (0-0.2); BASOPHIL % 0.8 % (0.0-2.0); EOSINOPHIL # 0.3 TH/MM3 (0-0.4); EOSINOPHIL % 4.2 % (0.0-4.0); HEMATOCRIT 29.8 % (39.0-51.0); HEMOGLOBIN 9.7 GM/DL (13.0-17.0); LYMPHOCYTE # 1.2 TH/MM3 (1.0-4.8); MEAN CELL VOLUME 86.2 FL (80.0-100.0); MEAN CORPUSCULAR HGB CONC 32.5 % (32.0-36.0); MEAN PLATELET VOLUME 8.7 FL (7.0-11.0); MONO % 9.2 % (0.0-8.0); MONOCYTE # 0.7 TH/MM3 (0-0.9); NEUT % 69.8 % (16.0-70.0); PLATELET COUNT 247 TH/MM3 (150-450); RED BLOOD COUNT 3.46 MIL/MM3 (4.50-5.90); RED CELL DISTRIBUTION WIDTH 15.4 % (11.6-17.2); WHITE BLOOD COUNT 7.5 TH/MM3 (4.0-11.0)
[2016-11-20 04:40] LABS: BICARBONATE 32.8 MEQ/L (21.0-32.0); CALCIUM 8.5 MG/DL (8.5-10.1); CREATININE 0.76 MG/DL (0.60-1.30)
[2016-11-20] MEDS: POTASSIUM CHLOR 40 MEQ PREMIX 100 ML IV PRN ×2 (05:42→07:31)
[2016-11-20] MEDS: levETIRAcetam INJ 500 MG in SODIUM CHLORIDE 0.9% INJ 100 ML IV SCH ×2 (09:00→19:14)
[2016-11-20] MEDS: FLUDROCORTISONE ACETATE 0.1 MG TAB PO SCH ×2 (09:10→19:20)
[2016-11-20] MEDS: PANTOPRAZOLE SODIUM 40 MG VIAL IV SCH (09:10)
[2016-11-20] MEDS: QUEtiapine FUMARATE 25 MG TAB PO SCH ×3 (09:11→19:14)
[2016-11-20] MEDS: SODIUM CHLORIDE 0.9% FLUSH 10 ML FLUSH IV FLUSH SCH (09:11)
[2016-11-20] MEDS: hydrALAZINE HCL 50 MG TAB PO SCH ×2 (09:11→19:13)
[2016-11-20] MEDS: PRAVASTATIN SOD 40 MG TAB PO SCH (09:11)
[2016-11-20] MEDS: amLODIPine BESYLATE 5 MG TAB PO SCH (09:11)
[2016-11-20] MEDS: LACTOBACILLUS ACIDOPHILUS TAB PO SCH ×2 (09:11→19:14)
--- NOTE | 2016-11-20 09:35 | HHI.NSPN ---
(Meir Sánchez LUNCHROOM ATTENDANT) Note Status Status: Progress Note (Meir Sánchez) Interval History Interval History 51 year old male presents with being brought in as a trauma alert due to a head injury with altered mental status and a diminished GCS. The patient was in the bathroom and fell and hit his head. This was an unwitnessed fall. According to the patient's the patient had been unresponsive for approximately 15 minutes by the time ambulance services arrived. When they arrived the patient was noted to be a GCS of 14, however his mentation would wax and wane and go down as low as 3 again. On arrival to the emergency department he felt extremely nauseated. The CT of the head revealed diffuse subarachnoid bleed. Emergently intubated in the trauma bay. Possible seizure activity. Intubated in the emergency room. 10/05/16: Endovascular coiling 10/07/16 rinse intubated and sedated. Ventriculostomy in place 10/09/16: Remains intubated and sedated. Increased agitation with attempts at sedation vacation 10/17/16: Pupils 2 mm. Intubated and sedated. Somewhat more responsive with decreased sedation. External ventricular drain and closed to reservoir again today. 10/19/16: TCD with vasospasm, to angio with 10 mg Verapamil IA given. 10/20/16: Patient with fevers up to 102.8 per Nursing and cultures sent, Nursing reports CSF milky & with sediment. TCD being repeated this afternoon due to vast difference from that done this morning and yesterday. Supervisor Byproducts increased SBP parameters to 180-200 mm Hg to help overcome vasospasms. No increase in ICP. 10/21/16: Still with elevated temp but not as high. TCD yesterday demonstrated resolution of vasospasms but today it demonstrated a right SRI vasospasm. Patient with facial grimacing and attempted eye opening. CSF specimen sent yesterday w/o any organisms or WBCs seen on Gram stain. 10/23/16: Trach done 10/24/16: PEG done at bedside prior to being seen. Nursing reports prior to sedation he was following commands to all extremities although right was weaker. Mild vasospasm per TCD. 10/25/16: No evident distress. Noted to move BLE & slight LUE spontaneously. Did open eyes partially after having been stimulated. TCD being done. 10/26/16: No evident distress, attempted eye opening to verbal & attempted to follow some commands, some spontaneous movements noted BLE & LUE. TCD being done. 10/27/16: No apparent distress, no eye opening, follows some commands. 10/28/16: Remains tracheed, NAD, follows some commands, spontaneous movement of BLE & LUE noted. 10/29/16: Remains stable follows some commands, spontaneous movement of BLE & LUE noted 10/31/16: Patient trached and on T-piece when seen, follows commands, spontaneous movement of extremities noted. Did attempt to mouth words. 11/01/16: Patient doing well, on T-piece, follows commands, moving both feet spontaneously. Nursing reports he is intermittently following command and mouthing words. 11/02/16: Patient continues to do well, on T-piece, follows some commands, he does turn his head in direction of practitioner's voice. 11/03/16: Patient doing quite well today, on T-piece, follows commands, opens eyes briefly and holds up two fingers on left hand to command and tries with right. 11/04/16: Patient initially seen this morning with Therapy at the bedside. He had his eyes open at the time and would do a hand squeeze to command. When seen later he would not open his eyes but did follow commands and was able to show two fingers with each hand to command. Nursing reported that the patient mouthed that the RUE was not working. 6: His mental status is improving, he follows commands 4. He is awaiting transfer to [facility] care facility. No acute events overnight. 7: slightly restless today, has transfer order out of unit pending. no changes to neuro checks overnight. 58: Patient doing well, follows some simple commands but not consistently 5: Patient remains stable, eyes are open, he nods yes when asked if he has a headache. CTA brain yesterday demonstrates enlarging ventricles with periventricular hypodensity characteristic of developing hydrocephalus. 5: Patient stable, does not open eyes to verbal stimuli but does follow commands. 11/10: Patient with stable neurological function. His eyes were initially open when seen but he kept them closed when examined although he did follow other commands. Infectious Disease saw the patient yesterday for a questionable drug- induced rash and signed off. Later in the day the patient had a positive PCR for Clostridium difficile and treatment was started. 11/11: Patient continues to be stable neurologically. He is seen spontaneously moving the right leg. 11/12/16: Pt opens eyes. Nods head to questions. Denies headache. States he is cold. 11/13/16: Pt Not opening eyes. Not following commands. Mouths ouch to pain. Spontaneously moves LEs intermittently. 11/14: Awake & alert, tracks with his eyes. Moving all extremities spontaneously and follows commands. 11/15: Awake & alert, moving all extremities spontaneously, follows commands. Pulse ox down to 85% due to T-piece being disconnected from trach when seen. Connected T-piece to trach and pulse ox up to 95%. 11/16: Patient awake & alert, watching TV, moving all extremities. 11/17: Patient awake & alert, fidgeting but no distress. 11/18: Patient seen this morning with eyes open prior to being seen but kept them shut when seen. He did follow commands and nodded appropriately to the ROS questions and mouthed words. 11/19: Patient wake this morning and fidgeting in bed. Nursing reports that during the night the patient was very agitated and pulling at his lines and remains restrained due to this. He receives Seroquel at 0900 and 1200 daily. He does follow commands. 11/20: Patient asleep but opens eyes to verbal stimuli. He does follow commands although he is fidgeting in bed and attempting to get out by himself. (Meir Sánchez) Labs, Micro, & Vital Signs Results Allergies Coded Allergies Type Severity Reaction Last Updated Verified Penicillin Allergy Unknown 10/06/16 Yes Sulfa Allergy Unknown 10/06/16 Yes 11/18///////// 05:59 17:59 05:59 17:59 05:59 17:59 Intake Total 916 ml 2378 ml 940 ml 1292 ml 523 ml 412 ml Output Total 1000 ml 1710 ml 800 ml 2275 ml 300 ml 200 ml Balance -84 ml 668 ml 140 ml -983 ml 223 ml 212 ml IV Total 538 ml 1101 ml 428 ml 298 ml 111 ml 0 ml Tube Feeding 318 ml 922 ml 392 ml 754 ml 312 ml 352 ml Tube Irrigant 60 ml 180 ml 120 ml 180 ml 100 ml 60 ml Other 175 ml 60 ml Output Urine Total 1000 ml 1710 ml 800 ml 2275 ml 300 ml 200 ml # Voids 3 2 1 4 # Bowel Movements 1 1 2 1 0 0 Laboratory Tests Test 11/17/16 11/18/16 11/18/16 11/19/16 20:45 03:45 13:20 00:20 Potassium Level 3.3 MEQ/L 3.3 MEQ/L 3.4 MEQ/L 3.3 MEQ/L White Blood Count 7.7 TH/MM3 Red Blood Count 3.25 MIL/MM3 Hemoglobin 9.2 GM/DL Hematocrit 28.3 % Mean Corpuscular Volume 87.2 FL Mean Corpuscular Hemoglobin 28.3 PG Mean Corpuscular Hemoglobin 32.5 % Concent Red Cell Distribution Width 15.1 % Platelet Count 218 TH/MM3 Mean Platelet Volume 8.9 FL Neutrophils (%) (Auto) 70.2 % Lymphocytes (%) (Auto) 15.9 % Monocytes (%) (Auto) 8.8 % Eosinophils (%) (Auto) 4.5 % Basophils (%) (Auto) 0.6 % Neutrophils # (Auto) 5.4 TH/MM3 Lymphocytes # (Auto) 1.2 TH/MM3 Monocytes # (Auto) 0.7 TH/MM3 Eosinophils # (Auto) 0.3 TH/MM3 Basophils # (Auto) 0.0 TH/MM3 CBC Comment DIFF FINAL Differential Comment Sodium Level 146 MEQ/L Chloride Level 109 MEQ/L Carbon Dioxide Level 31.8 MEQ/L Anion Gap 5 MEQ/L Blood Urea Nitrogen 4 MG/DL Creatinine 0.68 MG/DL Estimat Glomerular Filtration 123 ML/MIN Rate Random Glucose 118 MG/DL Calcium Level 8.5 MG/DL Magnesium Level 2.0 MG/DL Test 11/19/16 11/20/16 06:30 04:00 White Blood Count 8.2 TH/MM3 7.5 TH/MM3 Red Blood Count 3.51 MIL/MM3 3.46 MIL/MM3 Hemoglobin 10.0 GM/DL 9.7 GM/DL Hematocrit 30.1 % 29.8 % Mean Corpuscular Volume 85.7 FL 86.2 FL Mean Corpuscular Hemoglobin 28.5 PG 28.0 PG Mean Corpuscular Hemoglobin 33.3 % 32.5 % Concent Red Cell Distribution Width 15.0 % 15.4 % Platelet Count 256 TH/MM3 247 TH/MM3 Mean Platelet Volume 9.0 FL 8.7 FL Neutrophils (%) (Auto) 76.3 % 69.8 % Lymphocytes (%) (Auto) 11.8 % 16.0 % Monocytes (%) (Auto) 8.2 % 9.2 % Eosinophils (%) (Auto) 3.4 % 4.2 % Basophils (%) (Auto) 0.3 % 0.8 % Neutrophils # (Auto) 6.3 TH/MM3 5.2 TH/MM3 Lymphocytes # (Auto) 1.0 TH/MM3 1.2 TH/MM3 Monocytes # (Auto) 0.7 TH/MM3 0.7 TH/MM3 Eosinophils # (Auto) 0.3 TH/MM3 0.3 TH/MM3 Basophils # (Auto) 0.0 TH/MM3 0.1 TH/MM3 CBC Comment DIFF FINAL DIFF FINAL Differential Comment Sodium Level 145 MEQ/L 145 MEQ/L Potassium Level 3.7 MEQ/L 3.0 MEQ/L Chloride Level 105 MEQ/L 106 MEQ/L Carbon Dioxide Level 31.8 MEQ/L 32.8 MEQ/L Anion Gap 8 MEQ/L 6 MEQ/L Blood Urea Nitrogen 5 MG/DL 9 MG/DL Creatinine 0.73 MG/DL 0.76 MG/DL Estimat Glomerular Filtration 113 ML/MIN 108 ML/MIN Rate Random Glucose 127 MG/DL 118 MG/DL Calcium Level 8.4 MG/DL 8.5 MG/DL Constitutional Vital Signs Date Time Temp Pulse Resp B/P Pulse Ox O2 Delivery O2 Flow Rate FiO2 11/20/16 08:00 98.9 90 21 149/111 94 11/20/16 08:00 93 11/20/16 07:12 93 Trach Collar 28 11/20/16 07:00 95 Trach Collar 28 11/20/16 06:00 93 11/20/16 04:00 101 11/20/16 04:00 98.1 101 23 146/88 95 11/20/16 02:00 100 11/20/16 00:00 98.0 102 23 154/82 94 11/20/16 00:00 102 11/19/16 22:00 98 11/19/16 20:00 103 11/19/16 20:00 97.2 103 21 135/85 97 11/19/16 19:43 95 Trach Collar 6.00 28 11/19/16 19:00 94 Trach Collar 28 11/19/16 18:00 95 11/19/16 16:00 97.9 88 16 123/79 94 11/19/16 16:00 94 Trach Collar 28 11/19/16 16:00 88 11/19/16 14:00 89 11/19/16 12:00 90 11/19/16 12:00 98.7 90 19 121/73 97 11/19/16 10:00 98 11/20/16 06:59 Intake Total 1547 ml Output Total 1300 ml Balance 247 ml (Meir Sánchez) Review of Systems/Exam ROS Unable to obtain ROS, patient not responding to questions when seen. Exam Resp: Essentially clear breath sounds bilaterally, equal excursion, non-laboured , trached & on trach collar. CV: S1S2 w/RRR w/o M/G/R, radial & pedal pulses 2+ bilaterally, cap refill < 2 sec. Monitor is sinus rhythm to sinus tachycardia (95-102) w/o any ectopy noted GI: Abdomen soft, nontender, positive bowel sounds, PEG tube with enteral feeds. : Condom cath to BSD. Neuro: Asleep but awakens to verbal stimuli. Does not try to mouth words. Follows commands. Moving all extremities with some purpose. Motor strength 4+ to 5/5. (Meir Sánchez) Medications Current Medications Current Medications Medications (Trade) Dose Ordered Sig/Nava Route Start Time Stop Time Status Last Admin (Tylenol) 650 mg Q6H PRN PO 10/05/16 02:45 11/19/16 20:43 (Protonix Inj) 40 mg DAILY IV 10/05/16 09:00 11/20/16 09:10 (Tears Naturale Opth Soln) 1 drop TID EACH EYE 10/05/16 09:00 11/19/16 18:07 (Zofran Inj) 4 mg Q6H PRN IV 10/05/16 02:45 11/06/16 20:58 Miscellaneous Information 1 Q361D XX 10/05/16 02:45 10/05/16 02:45 (Chlorhexidine 2% Cloth) Taper DAILY@04 TOP 10/05/16 04:00 10/01/17 03:59 11/16/16 03:28 Chlorhexidine Gluconate 3 pack 3 pack UNSCH PRN TOP 10/05/16 02:45 (Keppra Inj/NS Inj) 105 ml @ 420 mls/hr Q12HR IV 10/05/16 09:00 11/19/16 20:16 (Pravachol) 40 mg DAILY PO 10/05/16 09:00 11/20/16 09:11 (NS Flush) See Protocol DAILY IV FLUSH 10/07/16 09:00 11/20/16 09:11 (NS Flush) See Protocol UNSCH PRN IV FLUSH 10/06/16 12:00 Sodium Chloride UNSCH PRN IV FLUSH 10/06/16 12:00 11/20/16 04:16 (Levophed Inj/NS 250 ml Inj) 254 ml @ 0 mls/hr TITRATE IV 10/06/16 18:00 10/28/16 20:14 (Florinef) 0.2 mg Q12HR PO 10/22/16 21:00 11/20/16 09:10 Enoxaparin Sodium 40 mg 40 mg Q24H SQ 10/23/16 21:00 11/19/16 20:16 Potassium Phosphate 30 mmol/ Sodium Chloride 260 ml @ 42 mls/hr UNSCH PRN IV 10/24/16 15:15 Potassium Chloride 100 ml @ 50 mls/hr Q2H PRN IV 11/03/16 05:15 11/20/16 07:31 (KCl 20 Meq Premix Inj) 100 ml @ 50 mls/hr Q2H PRN IV 11/03/16 05:15 Potassium Bicarb/ Potassium Chloride 50 meq 50 meq UNSCH PRN PO 11/03/16 05:15 Potassium Chloride 100 ml @ 25 mls/hr UNSCH PRN IV 11/03/16 05:15 11/19/16 01:44 Potassium Chloride 100 ml @ 50 mls/hr Q2H PRN IV 11/03/16 05:15 11/18/16 18:44 (Magnesium Sulfate Inj/NS Inj) 100 ml @ 50 mls/hr UNSCH PRN IV 11/03/16 05:15 Magnesium Oxide 800 mg 800 mg UNSCH PRN PO 11/03/16 05:15 (Magnesium Sulfate Inj/NS Inj) 100 ml @ 50 mls/hr UNSCH PRN IV 11/03/16 05:15 Potassium Phosphate 2000 mg 2,000 mg Q4H PRN PO 11/03/16 05:15 (Sodium Phosphate Inj/NS 250 ml Inj) 250 ml @ 42 mls/hr UNSCH PRN IV 11/03/16 05:15 (K-Phos) 2,000 mg UNSCH PRN PO/TUBE 11/03/16 05:15 (Trandate) 100 mg Q8H PO 11/03/16 20:00 11/20/16 04:16 (Apresoline) 50 mg Q12HR PO 11/03/16 19:00 11/20/16 09:11 (Norvasc) 5 mg DAILY PO 11/04/16 09:00 11/20/16 09:11 (Mycostatin Powder) 1 applic TID TOPICAL 11/06/16 09:00 11/19/16 18:07 (Lactinex) 1 tab Q12HR PO 11/06/16 21:00 11/20/16 09:11 (SEROquel) 25 mg BID@09,12 PO 11/07/16 09:00 11/20/16 09:11 (Colace Liq) 100 mg Q12H PRN G-TUBE 11/06/16 17:00 (Imodium) 2 mg UNSCH PRN PO 11/09/16 09:45 11/14/16 23:00 (Lomotil Tab) 1 tab Q6H PRN PO 11/09/16 09:45 (Flagyl) 500 mg Q8H PO 11/09/16 16:00 11/20/16 09:11 (Sodium Chloride) 2 gm Q8HR PO 11/16/16 14:00 11/20/16 04:16 (Benadryl Inj) 50 mg Q6H PRN IV 11/16/16 23:00 11/20/16 00:48 (Meir Sánchez) Medical Decision Making MDM Remarks 1. Neurological function stable, continues to slowly improve 2. 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 Left basal ganglia region CVA primarily per CT 4. CSF cultures w/o any growth 5. Max temp 98.7 6. Enterobacter cloacae in sputum from 7. Hypokalemia 8. Hypernatremia, resolved 9. Hydrocephalus 10. Clostridium difficile infection, negative stool x3 after tx (Meir Sánchez) Plan Plan Remarks Plan is to take patient to OR for a MONOGRAM AND LETTER PASTER shunt this week Will obtain CT brain w/o contrast on Cognitive/speech therapy eval & tx Activity OOB to cardiac chair Continue PT & OT Continue abx per Surgical Supervisor Byproducts Continue Keppra for probable seizure activity Okay for Lovenox from NSGY standpoint Ulcer prophylaxis Keep SBP between 120-160 mm Hg From NSGY's perspective patient should be able to be transferred to inpatient rehab soon (Meir Sánchez) Attending Statement I have personally seen and examined the patient on the date of this note. Pertinent documentation and study results have been reviewed by the undersigned. I have personally developed the treatment plan and performed medical decision making. Agree with findings, exam, and treatment plan as noted above. Patient up in chair out of bed today. No overall change in neurologic exam with the past few days. Recheck CT scan head in the a.m. (Gino Mace MD) Meir Sánchez November 20, 2016 09:34 Gino Mace MD November 20, 2016 15:53
[2016-11-20] MEDS: NYSTATIN 100,000 U/GM PWD 15 GM BTL TOPICAL SCH ×3 (09:53→17:27)
[2016-11-20] MEDS: ARTIFICIAL TEARS OPTH SOLN 15 ML BTL EACH EYE SCH ×3 (09:53→17:27)
--- NOTE | 2016-11-20 10:51 | HHI.PR ---
Subjective Remarks Follow up encephalopathy, hypokalemia. Patient is more alert. Answers some questions, but is confused. No complaints of chest pain, dyspnea. Objective Vitals Vital Signs Date Time Temp Pulse Resp B/P Pulse Ox O2 Delivery O2 Flow Rate FiO2 11/20/16 10:00 102 11/20/16 08:00 98.9 90 21 149/111 94 11/20/16 08:00 93 11/20/16 07:12 93 Trach Collar 28 11/20/16 07:00 95 Trach Collar 28 11/20/16 06:00 93 11/20/16 04:00 101 11/20/16 04:00 98.1 101 23 146/88 95 11/20/16 02:00 100 11/20/16 00:00 98.0 102 23 154/82 94 11/20/16 00:00 102 11/19/16 22:00 98 11/19/16 20:00 103 11/19/16 20:00 97.2 103 21 135/85 97 11/19/16 19:43 95 Trach Collar 6.00 28 11/19/16 19:00 94 Trach Collar 28 11/19/16 18:00 95 11/19/16 16:00 97.9 88 16 123/79 94 11/19/16 16:00 94 Trach Collar 28 11/19/16 16:00 88 11/19/16 14:00 89 11/19/16 12:00 90 11/19/16 12:00 98.7 90 19 121/73 97 I/O 11/19/16 11/19/16 11/19/16 11/20/16 11/20/16 11/20/16 06:59 14:59 22:59 06:59 14:59 22:59 Intake Total 680 ml 552 ml 583 ml 412 ml Output Total 1475 ml 800 ml 300 ml 200 ml Balance -795 ml -248 ml 283 ml 212 ml IV Total 175 ml 123 ml 111 ml 0 ml Tube Feeding 385 ml 369 ml 312 ml 352 ml Tube Irrigant 120 ml 60 ml 100 ml 60 ml Other 60 ml Output Urine Total 1475 ml 800 ml 300 ml 200 ml # Voids 1 2 4 # Bowel Movements 1 0 0 0 Result Diagram: 11/20/16 0400 11/20/16 0400 Imaging Last Impressions Head CT 11/07/16 0000 Signed Impressions: Service Date/Time: Monday, November 07, 2016 10:51 - CONCLUSION: Enlarging ventricles with increasing periventricular hypodensity characteristic of developing hydrocephalus. Left thalamic infarct, minimal hemorrhage in the right sylvian fissure and minimal blood in the ventricles is again noted. No evidence of new infarct or parenchymal hemorrhage. Leonel Alva MD Chest X-Ray 11/01/16 0600 Signed Impressions: Service Date/Time: Tuesday, November 01, 2016 04:37 - CONCLUSION: 1. No acute cardiopulmonary disease. Trevin De León MD Transcranial Doppler Study Complete 10/26/16 0700 Signed Impressions: Service Date/Time: Wednesday, October 26, 2016 08:20 - CONCLUSION: Minimal interval improvement with no evidence for vasospasm. Christian Song MD FACR Neck CTA 10/19/16 0000 Signed Impressions: Service Date/Time: Wednesday, October 19, 2016 14:19 - CONCLUSION: Negative for dissection or significant stenosis. Christian Song MD FACR Head CTA 10/19/16 0000 Signed Impressions: Service Date/Time: Wednesday, October 19, 2016 14:19 - CONCLUSION: 1. Interval development of significant vasospasm in the left MCA and SRI territories. 2. Mild vasospasm in the basilar artery.. Gume Mckeon MD Cerebral Arteriogram 10/19/16 0000 Signed Impressions: Service Date/Time: Wednesday, October 19, 2016 16:06 - CONCLUSION: 1. Vasospasm in the left MCA and SRI territories 2. Spasmolytic infusion, left internal carotid artery as above.. 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 Gume Mckeon MD Pelvis X-Ray 10/05/16109 Signed Impressions: Service Date/Time: Wednesday, October 05, 2016 01:22 - CONCLUSION: Unremarkable examination of the pelvis. Ruben Acuña Jr., MD Chest CT 10/05/16 011 Signed Impressions: Service Date/Time: Wednesday, October 05, 2016 01:46 - CONCLUSION: 1. No acute intrathoracic abnormality. 2. Bibasilar atelectasis. 3. Cardiomegaly. 4. Prior granulomatous disease. Ruben Acuña Jr., MD Cervical Spine CT 10/05/16109 Signed Impressions: Service Date/Time: Wednesday, October 05, 2016 01:40 - CONCLUSION: 1. No fracture or dislocation. 2. Multilevel degenerative changes. Ruben Acuña Jr., MD Abdomen/Pelvis CT 10/05/16109 Signed Impressions: Service Date/Time: Wednesday, October 05, 2016 01:46 - CONCLUSION: 1. No acute trauma. 2. Rounded area of decreased density involving the pancreatic head. I cannot completely exclude pancreatic head mass. At some point MRI of the pancreas is suggested to further evaluate. 3. Focal area of poor enhancement involving the left kidney. This may relate to an area of parenchymal scarring. I cannot completely exclude a mass. This can be further assessed with MRI as well. Ruben Acuña Jr., MD Objective Remarks General: No acute distress. In soft wrist restraints. T-piece. Sitting in chair. Heart: Regular rate and rhythm. No murmur. Lungs: Clear to auscultation bilaterally. No wheezes, rales, or rhonchi. Breathing is nonlabored. Abdomen: Soft, nontender, nondistended. Positive bowel sounds. Extremities: No lower extremity edema. Psych: Alert. Answers questions by nodding. Tries to speak, but unable to do so because of trach. Procedures 10/05/16 right frontal twist drill for ventriculostomy placement 10/20/16 arterial line placement 10/23/16 bedside percutaneous tracheostomy under direct bronchoscopic visualization 10/24/16 PEG tube placement at bedside Urinary Catheter: No Line: Central Venous Catheter Side: Right A/P Problem List: (1) 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 ICD Code: I60.8 Status: Acute (2) Hypertension ICD Code: I10 Status: Chronic (3) Major neurocognitive disorder due to vascular disease, without behavioral disturbance, severe ICD Code: F01.50 Status: Acute (4) Septic shock ICD Code: A41.9 Status: Resolved (5) Hydrocephalus ICD Code: G91.9 Status: Acute (6) Intracranial hemorrhage ICD Code: I62.9 Status: Acute (7) Major neurocognitive disorder as late effect of traumatic brain injury with behavioral disturbance ICD Code: S06.9X9S Status: Acute (8) Encephalopathy ICD Code: G93.40 Status: Acute (9) Sepsis ICD Code: A41.9 Status: Resolved (10) Pneumonia ICD Code: J18.9 Status: Acute (11) Protein-calorie malnutrition, mild ICD Code: E44.1 Status: Acute (12) Acute respiratory failure with hypoxia and hypercarbia ICD Code: J96.01 Status: Acute Assessment and Plan 1. Aneurysmal subarachnoid hemorrhage, occurred on 10/05/16: Appreciate neurosurgery recommendations. Okay for Lovenox per neurosurgery. Continue Keppra for seizure prophylaxis. 2. Encephalopathy: Secondary to above. Mental status is improving slowly. 3. Acute hypoxic, hypercarbic respiratory failure: Tracheostomy 10/23/16. On T- piece. Continue supplemental oxygen. DuoNeb as needed, scheduled. Trach management per pulmonology. 4. Septic shock: Resolved. 5. Possible cerebral salt wasting: Continue sodium chloride tablets, Florinef. 6. Mild acute protein calorie malnutrition: Continue tube feedings. Monitor labs. 7. Pneumonia: Completed antibiotics. 8. C. difficile colitis: Continue Flagyl. Repeat C. difficile studies are negative. 9. Hyperglycemia of critical illness: Improved. 10. DVT prophylaxis: SCDs, YOUSIF hose, Lovenox. 11. GI prophylaxis: Protonix. 12. Hydrocephalus: Plan for shunt placement per neurosurgery. Awaiting clearance of C. difficile. Repeat head CT on 11/21/16 per neurosurgery. 13. Hypokalemia: Improved. Problem Qualifiers (1) Hypertension: Qualified Code: I10 - Essential hypertension Enrique Mclain MD November 20, 2016 10:51
--- NOTE | 2016-11-20 14:20 | HHI.PR ---
Subjective Remarks ON O2 NO DISTRESS TRACH IN PLACE Objective Vital Signs Date Time Temp Pulse Resp B/P Pulse Ox O2 Delivery O2 Flow Rate FiO2 11/20/16 14:00 92 11/20/16 12:00 98.5 103 24 111/79 95 11/20/16 12:00 103 11/20/16 10:00 102 11/20/16 08:00 98.9 90 21 149/111 94 11/20/16 08:00 93 11/20/16 07:12 93 Trach Collar 28 11/20/16 07:00 95 Trach Collar 28 11/20/16 06:00 93 11/20/16 04:00 101 11/20/16 04:00 98.1 101 23 146/88 95 11/20/16 02:00 100 11/20/16 00:00 98.0 102 23 154/82 94 11/20/16 00:00 102 11/19/16 22:00 98 11/19/16 20:00 103 11/19/16 20:00 97.2 103 21 135/85 97 11/19/16 19:43 95 Trach Collar 6.00 28 11/19/16 19:00 94 Trach Collar 28 11/19/16 18:00 95 11/19/16 16:00 97.9 88 16 123/79 94 11/19/16 16:00 94 Trach Collar 28 11/19/16 16:00 88 I/O 11/19/16 11/19/16 11/19/16 11/20/16 11/20/16 11/20/16 07:00 15:00 23:00 07:00 15:00 23:00 Intake Total 680 ml 552 ml 583 ml 412 ml 800 ml Output Total 1475 ml 800 ml 300 ml 200 ml 100 ml Balance -795 ml -248 ml 283 ml 212 ml 700 ml IV Total 175 ml 123 ml 111 ml 0 ml 200 ml Tube Feeding 385 ml 369 ml 312 ml 352 ml 480 ml Tube Irrigant 120 ml 60 ml 100 ml 60 ml 120 ml Other 60 ml Output Urine Total 1475 ml 800 ml 300 ml 200 ml 100 ml # Voids 1 2 4 4 # Bowel Movements 1 0 0 0 1 Result Diagram: 11/20/16 0400 11/20/16 0400 Medications and IVs GENERAL: SKIN: Warm and dry. HEAD: Atraumatic. Normocephalic. EYES: Pupils equal and round. No scleral icterus. No injection or drainage. ENT: No nasal bleeding or discharge. Mucous membranes pink and moist. NECK: Trachea midline. No JVD. CARDIOVASCULAR: Regular rate and rhythm. RESPIRATORY: No accessory muscle use. Clear to auscultation. Breath sounds equal bilaterally. GASTROINTESTINAL: Abdomen soft, non-tender, nondistended. Hepatic and splenic margins not palpable. MUSCULOSKELETAL: Extremities without clubbing, cyanosis, or edema. No obvious deformities. NEUROLOGICAL: Awake and alert. No obvious cranial nerve deficits. Motor grossly within normal limits. Five out of 5 muscle strength in the arms and legs. Normal speech. PSYCHIATRIC: Appropriate mood and affect; insight and judgment normal. Assessment and Plan Assessment and Plan RESPIRATORY FAILUE S/P TRACHEOSTOMY IC BLEED PLAN O2 NEEDED PULM TOILET Physician Attestation GENERAL: SKIN: Warm and dry. HEAD: Atraumatic. Normocephalic. EYES: Pupils equal and round. No scleral icterus. No injection or drainage. ENT: No nasal bleeding or discharge. Mucous membranes pink and moist. NECK: Trachea midline. No JVD. CARDIOVASCULAR: Regular rate and rhythm. RESPIRATORY: No accessory muscle use. Clear to auscultation. Breath sounds equal bilaterally. GASTROINTESTINAL: Abdomen soft, non-tender, nondistended. Hepatic and splenic margins not palpable. MUSCULOSKELETAL: Extremities without clubbing, cyanosis, or edema. No obvious deformities. NEUROLOGICAL: Awake and alert. No obvious cranial nerve deficits. Motor grossly within normal limits. Five out of 5 muscle strength in the arms and legs. Normal speech. PSYCHIATRIC: Appropriate mood and affect; insight and judgment normal. Elian Plummer MD November 20, 2016 14:20
--- NOTE | 2016-11-20 16:58 | EKG ---
Date Performed: 11/20/2016 Time Performed: 01:15:46 PTAGE: 51 years EKG: Sinus tachycardia. Lateral T wave changes are nonspecific Borderline ECG NO PREVIOUS TRACING DOCTOR: Alexa Raphael Interpretating Date/Time 11/20/2016 16:57:15
[2016-11-20] MEDS: ENOXAPARIN SODIUM 40 MG/0.4 ML SYRINGE SQ SCH (19:14)
[2016-11-20] MEDS: POTASSIUM CHLOR 20 MEQ PREMIX 100 ML IV PRN (23:55)
[2016-11-21] VITALS (15 sets, daily range): BP systolic 126–152; BP diastolic 63–89; PULSE 91–100; RESP 17–24; TEMP 98.4–99.2; O2SAT 93–98
[2016-11-21] MEDS: POTASSIUM CHLOR 20 MEQ PREMIX 100 ML IV PRN (02:40)
[2016-11-21] MEDS: CHLORHEXIDINE GLUCONATE 2 % 1 PACK (2 CLOTHS) TOP SCH (02:40)
[2016-11-21] MEDS: LABETALOL HCL 100 MG TAB PO SCH ×3 (03:20→19:36)
[2016-11-21 04:20] LABS: AUTOMATED NEUTROPHIL # 5.5 TH/MM3 (1.8-7.7); BASOPHIL # 0.1 TH/MM3 (0-0.2); BASOPHIL % 0.7 % (0.0-2.0); EOSINOPHIL # 0.4 TH/MM3 (0-0.4); EOSINOPHIL % 4.8 % (0.0-4.0); HEMATOCRIT 31.2 % (39.0-51.0); LYMPHOCYTE # 1.4 TH/MM3 (1.0-4.8); MEAN CELL VOLUME 87.7 FL (80.0-100.0); MEAN PLATELET VOLUME 9.1 FL (7.0-11.0); MONO % 9.6 % (0.0-8.0); MONOCYTE # 0.8 TH/MM3 (0-0.9); NEUT % 67.9 % (16.0-70.0); PLATELET COUNT 241 TH/MM3 (150-450); RED BLOOD COUNT 3.56 MIL/MM3 (4.50-5.90); RED CELL DISTRIBUTION WIDTH 15.5 % (11.6-17.2); WHITE BLOOD COUNT 8.1 TH/MM3 (4.0-11.0)
[2016-11-21 04:49] LABS: BICARBONATE 32.1 MEQ/L (21.0-32.0); CALCIUM 8.7 MG/DL (8.5-10.1); CREATININE 0.92 MG/DL (0.60-1.30); MAGNESIUM 2.3 MG/DL (1.5-2.5)
--- NOTE | 2016-11-21 05:04 | RADRPT ---
EXAM DATE/TIME: 11/21/2016 04:29 [facility] COMPARISON: CT BRAIN W/O CONTRAST, October 28, 2016, 5:32. CT BRAIN W/O CONTRAST, November 07, 2016, 10:51. INDICATIONS : Follow up bleed. RADIATION DOSE: 64.26 CTDIvol (mGy) MEDICAL HISTORY : Pancreatitis. Hypertension. Cardiovascular disease SURGICAL HISTORY : None. ENCOUNTER: Subsequent ACUITY: 1 month PAIN SCALE: Non-responsive LOCATION: cranial TECHNIQUE: Multiple contiguous axial images were obtained of the head. Using automated exposure control and adj ustment of the mA and/or kV according to patient size, radiation dose was kept as low as reasonably a chievable to obtain optimal diagnostic quality images. FINDINGS: There is slight ventriculomegaly not changed and there is no evidence for intraventricular hemor rhage or subarachnoid hemorrhage. Encephalomalacia has developed in the left thalamus at the site of previous infarction. There is evidence for aneurysm clipping. No extra-axial fluid collections or mas s effect is seen. CONCLUSION: No change in ventriculomegaly without any hemorrhage or mass effect. Rosemarie Sagastume MD on November 21, 2016 at 4:59 Board Certified Radiologist. This report was verified electronically.
[2016-11-21] MEDS: SODIUM CHLORIDE 1 GRAM TAB PO SCH ×2 (05:27→13:21)
[2016-11-21] MEDS: metroNIDAZOLE 500 MG TAB PO SCH ×2 (07:43→15:15)
[2016-11-21] MEDS: PANTOPRAZOLE SODIUM 40 MG VIAL IV SCH (08:40)
[2016-11-21] MEDS: levETIRAcetam INJ 500 MG in SODIUM CHLORIDE 0.9% INJ 100 ML IV SCH ×2 (08:40→19:36)
[2016-11-21] MEDS: PRAVASTATIN SOD 40 MG TAB PO SCH (08:41)
[2016-11-21] MEDS: FLUDROCORTISONE ACETATE 0.1 MG TAB PO SCH ×2 (08:41→19:36)
[2016-11-21] MEDS: LACTOBACILLUS ACIDOPHILUS TAB PO SCH ×2 (08:41→19:36)
[2016-11-21] MEDS: QUEtiapine FUMARATE 25 MG TAB PO SCH ×3 (08:41→19:36)
[2016-11-21] MEDS: hydrALAZINE HCL 50 MG TAB PO SCH ×2 (08:41→19:36)
[2016-11-21] MEDS: amLODIPine BESYLATE 5 MG TAB PO SCH (08:41)
[2016-11-21] MEDS: SODIUM CHLORIDE 0.9% FLUSH 10 ML FLUSH IV FLUSH SCH (08:42)
[2016-11-21] MEDS: NYSTATIN 100,000 U/GM PWD 15 GM BTL TOPICAL SCH ×3 (08:43→18:09)
[2016-11-21] MEDS: ARTIFICIAL TEARS OPTH SOLN 15 ML BTL EACH EYE SCH ×3 (08:44→18:08)
--- NOTE | 2016-11-21 10:37 | HHI.NSPN ---
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 The patient was in the bathroom and fell and hit his head. This was an unwitnessed fall. According to the patient's the patient had been unresponsive for approximately 15 minutes by the time ambulance services arrived. When they arrived the patient was noted to be a GCS of 14, however his mentation would wax and wane and go down as low as 3 again. On arrival to the emergency department he felt extremely nauseated. The CT of the head revealed diffuse subarachnoid bleed. Emergently intubated in the trauma bay. Possible seizure activity. Intubated in the emergency room. 10/05/16: Endovascular coiling 10/07/16 rinse intubated and sedated. Ventriculostomy in place 10/09/16: Remains intubated and sedated. Increased agitation with attempts at sedation vacation 10/17/16: Pupils 2 mm. Intubated and sedated. Somewhat more responsive with decreased sedation. External ventricular drain and closed to reservoir again today. 10/19/16: TCD with vasospasm, to angio with 10 mg Verapamil IA given. 10/20/16: Patient with fevers up to 102.8 per Nursing and cultures sent, Nursing reports CSF milky & with sediment. TCD being repeated this afternoon due to vast difference from that done this morning and yesterday. Straight Line Press Setter increased SBP parameters to 180-200 mm Hg to help overcome vasospasms. No increase in ICP. 10/21/16: Still with elevated temp but not as high. TCD yesterday demonstrated resolution of vasospasms but today it demonstrated a right SRI vasospasm. Patient with facial grimacing and attempted eye opening. CSF specimen sent yesterday w/o any organisms or WBCs seen on Gram stain. 10/23/16: Trach done 10/24/16: PEG done at bedside prior to being seen. Nursing reports prior to sedation he was following commands to all extremities although right was weaker. Mild vasospasm per TCD. 10/25/16: No evident distress. Noted to move BLE & slight LUE spontaneously. Did open eyes partially after having been stimulated. TCD being done. 10/26/16: No evident distress, attempted eye opening to verbal & attempted to follow some commands, some spontaneous movements noted BLE & LUE. TCD being done. 10/27/16: No apparent distress, no eye opening, follows some commands. 10/28/16: Remains tracheed, NAD, follows some commands, spontaneous movement of BLE & LUE noted. 10/29/16: Remains stable follows some commands, spontaneous movement of BLE & LUE noted 10/31/16: Patient trached and on T-piece when seen, follows commands, spontaneous movement of extremities noted. Did attempt to mouth words. 11/01/16: Patient doing well, on T-piece, follows commands, moving both feet spontaneously. Nursing reports he is intermittently following command and mouthing words. 11/02/16: Patient continues to do well, on T-piece, follows some commands, he does turn his head in direction of practitioner's voice. 11/03/16: Patient doing quite well today, on T-piece, follows commands, opens eyes briefly and holds up two fingers on left hand to command and tries with right. 11/04/16: Patient initially seen this morning with Therapy at the bedside. He had his eyes open at the time and would do a hand squeeze to command. When seen later he would not open his eyes but did follow commands and was able to show two fingers with each hand to command. Nursing reported that the patient mouthed that the RUE was not working. 6: His mental status is improving, he follows commands 4. He is awaiting transfer to [facility]. No acute events overnight. 7: slightly restless today, has transfer order out of unit pending. no changes to neuro checks overnight. 58: Patient doing well, follows some simple commands but not consistently 5: Patient remains stable, eyes are open, he nods yes when asked if he has a headache. CTA brain yesterday demonstrates enlarging ventricles with periventricular hypodensity characteristic of developing hydrocephalus. 5: Patient stable, does not open eyes to verbal stimuli but does follow commands. 11/10: Patient with stable neurological function. His eyes were initially open when seen but he kept them closed when examined although he did follow other commands. Infectious Disease saw the patient yesterday for a questionable drug- induced rash and signed off. Later in the day the patient had a positive PCR for Clostridium difficile and treatment was started. 11/11: Patient continues to be stable neurologically. He is seen spontaneously moving the right leg. 11/12/16: Pt opens eyes. Nods head to questions. Denies headache. States he is cold. 11/13/16: Pt Not opening eyes. Not following commands. Mouths ouch to pain. Spontaneously moves LEs intermittently. 11/14: Awake & alert, tracks with his eyes. Moving all extremities spontaneously and follows commands. 11/15: Awake & alert, moving all extremities spontaneously, follows commands. Pulse ox down to 85% due to T-piece being disconnected from trach when seen. Connected T-piece to trach and pulse ox up to 95%. 11/16: Patient awake & alert, watching TV, moving all extremities. 11/17: Patient awake & alert, fidgeting but no distress. 11/18: Patient seen this morning with eyes open prior to being seen but kept them shut when seen. He did follow commands and nodded appropriately to the ROS questions and mouthed words. 11/19: Patient wake this morning and fidgeting in bed. Nursing reports that during the night the patient was very agitated and pulling at his lines and remains restrained due to this. He receives Seroquel at 0900 and 1200 daily. He does follow commands. 11/20: Patient asleep but opens eyes to verbal stimuli. He does follow commands although he is fidgeting in bed and attempting to get out by himself. 11/21: Patient awake & alert in cardiac chair. He does verbalise and denies any complaint. He is following commands. Nursing reported that he stood 3 times this morning with Therapy. He went for a repeat CT brain this morning which demonstrated stable ventriculomegaly. (Meir Sánchez) Labs, Micro, & Vital Signs Results This practitioner reviewed the CT brain from this morning and did not see any increase in the size of the ventricles. No haemorrhage or midline shift was noted. Allergies Coded Allergies Type Severity Reaction Last Updated Verified Penicillin Allergy Unknown 10/06/16 Yes Sulfa Allergy Unknown 10/06/16 Yes Recent Impressions Head CT 11/21/16 0500 Signed Impressions: Service Date/Time: Monday, November 21, 2016 04:29 - CONCLUSION: No change in ventriculomegaly without any hemorrhage or mass effect. Rosemarie Sagastume MD / 06:00 18:00 06:00 18:00 06:00 18:00 Intake Total 1620 ml 612 ml 935 ml 800 ml 1538 ml Output Total 2275 ml 800 ml 300 ml 300 ml Balance -655 ml -188 ml 635 ml 500 ml 1538 ml IV Total 603 ml 123 ml 111 ml 200 ml 698 ml Tube Feeding 777 ml 369 ml 664 ml 480 ml 720 ml Tube Irrigant 240 ml 60 ml 160 ml 120 ml 120 ml Other 60 ml Output Urine Total 2275 ml 800 ml 300 ml 300 ml # Voids 4 1 5 4 5 # Bowel Movements 3 0 0 1 0 Laboratory Tests Test 11/18/16 11/19/16 11/19/16 11/20/16 13:20 00:20 06:30 04:00 Potassium Level 3.4 MEQ/L 3.3 MEQ/L 3.7 MEQ/L 3.0 MEQ/L White Blood Count 8.2 TH/MM3 7.5 TH/MM3 Red Blood Count 3.51 MIL/MM3 3.46 MIL/MM3 Hemoglobin 10.0 GM/DL 9.7 GM/DL Hematocrit 30.1 % 29.8 % Mean Corpuscular Volume 85.7 FL 86.2 FL Mean Corpuscular Hemoglobin 28.5 PG 28.0 PG Mean Corpuscular Hemoglobin 33.3 % 32.5 % Concent Red Cell Distribution Width 15.0 % 15.4 % Platelet Count 256 TH/MM3 247 TH/MM3 Mean Platelet Volume 9.0 FL 8.7 FL Neutrophils (%) (Auto) 76.3 % 69.8 % Lymphocytes (%) (Auto) 11.8 % 16.0 % Monocytes (%) (Auto) 8.2 % 9.2 % Eosinophils (%) (Auto) 3.4 % 4.2 % Basophils (%) (Auto) 0.3 % 0.8 % Neutrophils # (Auto) 6.3 TH/MM3 5.2 TH/MM3 Lymphocytes # (Auto) 1.0 TH/MM3 1.2 TH/MM3 Monocytes # (Auto) 0.7 TH/MM3 0.7 TH/MM3 Eosinophils # (Auto) 0.3 TH/MM3 0.3 TH/MM3 Basophils # (Auto) 0.0 TH/MM3 0.1 TH/MM3 CBC Comment DIFF FINAL DIFF FINAL Differential Comment Sodium Level 145 MEQ/L 145 MEQ/L Chloride Level 105 MEQ/L 106 MEQ/L Carbon Dioxide Level 31.8 MEQ/L 32.8 MEQ/L Anion Gap 8 MEQ/L 6 MEQ/L Blood Urea Nitrogen 5 MG/DL 9 MG/DL Creatinine 0.73 MG/DL 0.76 MG/DL Estimat Glomerular Filtration 113 ML/MIN 108 ML/MIN Rate Random Glucose 127 MG/DL 118 MG/DL Calcium Level 8.4 MG/DL 8.5 MG/DL Test 11/20/16 11/21/16 21:30 03:45 Potassium Level 3.5 MEQ/L 3.8 MEQ/L White Blood Count 8.1 TH/MM3 Red Blood Count 3.56 MIL/MM3 Hemoglobin 10.0 GM/DL Hematocrit 31.2 % Mean Corpuscular Volume 87.7 FL Mean Corpuscular Hemoglobin 28.0 PG Mean Corpuscular Hemoglobin 32.0 % Concent Red Cell Distribution Width 15.5 % Platelet Count 241 TH/MM3 Mean Platelet Volume 9.1 FL Neutrophils (%) (Auto) 67.9 % Lymphocytes (%) (Auto) 17.0 % Monocytes (%) (Auto) 9.6 % Eosinophils (%) (Auto) 4.8 % Basophils (%) (Auto) 0.7 % Neutrophils # (Auto) 5.5 TH/MM3 Lymphocytes # (Auto) 1.4 TH/MM3 Monocytes # (Auto) 0.8 TH/MM3 Eosinophils # (Auto) 0.4 TH/MM3 Basophils # (Auto) 0.1 TH/MM3 CBC Comment DIFF FINAL Differential Comment Sodium Level 147 MEQ/L Chloride Level 110 MEQ/L Carbon Dioxide Level 32.1 MEQ/L Anion Gap 5 MEQ/L Blood Urea Nitrogen 12 MG/DL Creatinine 0.92 MG/DL Estimat Glomerular Filtration 87 ML/MIN Rate Random Glucose 99 MG/DL Calcium Level 8.7 MG/DL Magnesium Level 2.3 MG/DL Constitutional Vital Signs Date Time Temp Pulse Resp B/P Pulse Ox O2 Delivery O2 Flow Rate FiO2 11/21/16 08:00 99.2 99 24 126/87 94 11/21/16 08:00 99 11/21/16 07:56 93 T-piece 5.00 28 11/21/16 07:00 93 Trach Collar 28 11/21/16 06:00 95 11/21/16 04:00 91 11/21/16 04:00 98.9 91 23 129/81 96 11/21/16 02:00 97 11/21/16 00:00 98.9 100 24 149/89 96 11/21/16 00:00 100 11/20/16 22:00 94 11/20/16 20:12 98 11/20/16 20:00 98.6 96 26 149/85 94 11/20/16 20:00 94 Trach Collar 28 11/20/16 20:00 98 11/20/16 19:48 96 T-piece 28 11/20/16 18:00 87 11/20/16 16:00 98.6 97 16 120/74 11/20/16 16:00 96 11/20/16 14:00 92 11/20/16 12:00 98.5 103 24 111/79 95 11/20/16 12:00 103 11/21/16 07:00 Intake Total 2338 ml Output Total 100 ml Balance 2238 ml (Meir Sánchez) Review of Systems/Exam ROS Constitutional: Patient denies any fever or chills. Respiratory: Patient denies any shortness of breath or productive cough. Cardiovascular: Patient denies any chest pain, palpitations or irregular heart beat. Gastrointestinal: Patient denies any abdominal pain, nausea or vomiting. Extremities: Patient denies any arm or leg pain or weakness. Neurological: Patient denies any headache, dizziness, numbness or tingling. Exam Resp: CTAB w/o W/R/R, equal excursion, non-laboured, trached & on trach collar. CV: S1S2 w/RRR w/o M/G/R, radial & pedal pulses 2+ bilaterally, cap refill < 2 sec. Monitor is sinus rhythm to sinus tachycardia (96-101) w/o any ectopy noted GI: Abdomen soft, nontender, positive bowel sounds, PEG tube clamped. : Condom cath to BSD. Neuro: Awake & alert. Speech slightly garbled Follows simple commands Moving all extremities with some purpose, motor strength 4+ to 5/5 (Meir Sánchez) Medications Current Medications Current Medications Medications (Trade) Dose Ordered Sig/Nava Route Start Time Stop Time Status Last Admin (Tylenol) 650 mg Q6H PRN PO 10/05/16 02:45 11/19/16 20:43 (Protonix Inj) 40 mg DAILY IV 10/05/16 09:00 11/21/16 08:40 (Tears Naturale Opth Soln) 1 drop TID EACH EYE 10/05/16 09:00 11/21/16 08:44 (Zofran Inj) 4 mg Q6H PRN IV 10/05/16 02:45 11/06/16 20:58 Miscellaneous Information 1 Q361D XX 10/05/16 02:45 10/05/16 02:45 (Chlorhexidine 2% Cloth) Taper DAILY@04 TOP 10/05/16 04:00 10/01/17 03:59 11/16/16 03:28 Chlorhexidine Gluconate 3 pack 3 pack UNSCH PRN TOP 10/05/16 02:45 (Keppra Inj/NS Inj) 105 ml @ 420 mls/hr Q12HR IV 10/05/16 09:00 11/21/16 08:40 (Pravachol) 40 mg DAILY PO 10/05/16 09:00 11/21/16 08:41 (NS Flush) See Protocol DAILY IV FLUSH 10/07/16 09:00 11/21/16 08:42 (NS Flush) See Protocol UNSCH PRN IV FLUSH 10/06/16 12:00 Sodium Chloride UNSCH PRN IV FLUSH 10/06/16 12:00 11/20/16 19:14 (Levophed Inj/NS 250 ml Inj) 254 ml @ 0 mls/hr TITRATE IV 10/06/16 18:00 10/28/16 20:14 (Florinef) 0.2 mg Q12HR PO 10/22/16 21:00 11/21/16 08:41 Enoxaparin Sodium 40 mg 40 mg Q24H SQ 10/23/16 21:00 11/20/16 19:14 Potassium Phosphate 30 mmol/ Sodium Chloride 260 ml @ 42 mls/hr UNSCH PRN IV 10/24/16 15:15 Potassium Chloride 100 ml @ 50 mls/hr Q2H PRN IV 11/03/16 05:15 11/20/16 07:31 (KCl 20 Meq Premix Inj) 100 ml @ 50 mls/hr Q2H PRN IV 11/03/16 05:15 11/21/16 02:40 Potassium Bicarb/ Potassium Chloride 50 meq 50 meq UNSCH PRN PO 11/03/16 05:15 Potassium Chloride 100 ml @ 25 mls/hr UNSCH PRN IV 11/03/16 05:15 11/19/16 01:44 Potassium Chloride 100 ml @ 50 mls/hr Q2H PRN IV 11/03/16 05:15 11/18/16 18:44 (Magnesium Sulfate Inj/NS Inj) 100 ml @ 50 mls/hr UNSCH PRN IV 11/03/16 05:15 Magnesium Oxide 800 mg 800 mg UNSCH PRN PO 11/03/16 05:15 (Magnesium Sulfate Inj/NS Inj) 100 ml @ 50 mls/hr UNSCH PRN IV 11/03/16 05:15 Potassium Phosphate 2000 mg 2,000 mg Q4H PRN PO 11/03/16 05:15 (Sodium Phosphate Inj/NS 250 ml Inj) 250 ml @ 42 mls/hr UNSCH PRN IV 11/03/16 05:15 (K-Phos) 2,000 mg UNSCH PRN PO/TUBE 11/03/16 05:15 (Trandate) 100 mg Q8H PO 11/03/16 20:00 11/21/16 03:20 (Apresoline) 50 mg Q12HR PO 11/03/16 19:00 11/21/16 08:41 (Norvasc) 5 mg DAILY PO 11/04/16 09:00 11/21/16 08:41 (Mycostatin Powder) 1 applic TID TOPICAL 11/06/16 09:00 11/21/16 08:43 (Lactinex) 1 tab Q12HR PO 11/06/16 21:00 11/21/16 08:41 (SEROquel) 25 mg BID@09,12 PO 11/07/16 09:00 11/21/16 08:41 (Colace Liq) 100 mg Q12H PRN G-TUBE 11/06/16 17:00 (Imodium) 2 mg UNSCH PRN PO 11/09/16 09:45 11/14/16 23:00 (Lomotil Tab) 1 tab Q6H PRN PO 11/09/16 09:45 (Flagyl) 500 mg Q8H PO 11/09/16 16:00 11/21/16 07:43 (Sodium Chloride) 2 gm Q8HR PO 11/16/16 14:00 11/21/16 05:27 (Benadryl Inj) 50 mg Q6H PRN IV 11/16/16 23:00 11/20/16 23:55 (SEROquel) 25 mg HS PO 11/20/16 21:00 11/20/16 19:14 (Meir Sánchez) Medical Decision Making MDM Remarks 1. Neurological function stable, continues to slowly improve 2. 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 Left basal ganglia region CVA primarily per CT 4. CSF cultures w/o any growth 5. Max temp 99.2 6. Enterobacter cloacae in sputum from 7. Hypokalemia 8. Hypernatremia, resolved 9. Hydrocephalus 10. Clostridium difficile infection, negative stool x3 after tx CT brain without change in ventriculomegaly, no haemorrhage or mass effect (Meir Sánchez) Plan Plan Remarks Plan is to take patient to OR for a ANNUAL GIVING OFFICER shunt this week Cognitive/speech therapy eval & tx Activity OOB to cardiac chair Continue PT & OT Continue abx per Surgical Straight Line Press Setter Continue Keppra for probable seizure activity Okay for Lovenox from NSGY standpoint Ulcer prophylaxis Keep SBP between 120-160 mm Hg From NSGY's perspective patient should be able to be transferred to inpatient rehab soon (Meir Sánchez) Attending Statement I have personally seen and examined the patient on the date of this note. Pertinent documentation and study results have been reviewed by the undersigned. I have personally developed the treatment plan and performed medical decision making. Agree with findings, exam, and treatment plan as noted above. Neurologic exam stable past few days Anticipate shunt placement this week. (Gino Mace MD) Meir Sánchez November 21, 2016 10:37 Gino Mace MD November 24, 2016 20:30
[2016-11-21] MEDS: diphenhydrAMINE HCL 50 MG/ML VIAL IV PRN (14:35)
--- NOTE | 2016-11-21 17:30 | HHI.PR ---
Subjective Remarks Follow up encephalopathy, hypokalemia. Patient is more alert. Per nursing, he has been less agitated. Denies dyspnea, pain. Objective Vitals Vital Signs Date Time Temp Pulse Resp B/P Pulse Ox O2 Delivery O2 Flow Rate FiO2 11/21/16 16:00 94 11/21/16 16:00 98.4 93 21 128/78 95 11/21/16 14:00 99 11/21/16 12:00 98.7 95 17 133/83 97 11/21/16 12:00 96 11/21/16 10:00 95 11/21/16 08:00 99.2 99 24 126/87 94 11/21/16 08:00 99 11/21/16 07:56 93 T-piece 5.00 28 11/21/16 07:00 93 Trach Collar 28 11/21/16 06:00 95 11/21/16 04:00 91 11/21/16 04:00 98.9 91 23 129/81 96 11/21/16 02:00 97 11/21/16 00:00 98.9 100 24 149/89 96 11/21/16 00:00 100 11/20/16 22:00 94 11/20/16 20:12 98 11/20/16 20:00 98.6 96 26 149/85 94 11/20/16 20:00 94 Trach Collar 28 11/20/16 20:00 98 11/20/16 19:48 96 T-piece 28 11/20/16 18:00 87 I/O 11/20/16 11/20/16 11/20/16 11/21/16 11/21/16 11/21/16 06:59 14:59 22:59 06:59 14:59 22:59 Intake Total 412 ml 800 ml 762 ml 776 ml 680 ml Output Total 200 ml 100 ml Balance 212 ml 700 ml 762 ml 776 ml 680 ml IV Total 0 ml 200 ml 298 ml 400 ml 100 ml Tube Feeding 352 ml 480 ml 404 ml 316 ml 480 ml Tube Irrigant 60 ml 120 ml 60 ml 60 ml 100 ml Output Urine Total 200 ml 100 ml # Voids 4 4 2 3 2 # Bowel Movements 0 1 0 0 0 Result Diagram: 11/21/16 0345 11/21/16 0345 Imaging Last Impressions Head CT 11/21/16 0500 Signed Impressions: Service Date/Time: Monday, November 21, 2016 04:29 - CONCLUSION: No change in ventriculomegaly without any hemorrhage or mass effect. Rosemarie Sagastume MD Chest X-Ray 11/01/16 0600 Signed Impressions: Service Date/Time: Tuesday, November 01, 2016 04:37 - CONCLUSION: 1. No acute cardiopulmonary disease. Trevin De León MD Transcranial Doppler Study Complete 10/26/16 0700 Signed Impressions: Service Date/Time: Wednesday, October 26, 2016 08:20 - CONCLUSION: Minimal interval improvement with no evidence for vasospasm. Christian Song MD FACR Neck CTA 10/19/16 0000 Signed Impressions: Service Date/Time: Wednesday, October 19, 2016 14:19 - CONCLUSION: Negative for dissection or significant stenosis. Christian Song MD FACR Head CTA 10/19/16 0000 Signed Impressions: Service Date/Time: Wednesday, October 19, 2016 14:19 - CONCLUSION: 1. Interval development of significant vasospasm in the left MCA and SRI territories. 2. Mild vasospasm in the basilar artery.. Gume Mckeon MD Cerebral Arteriogram 10/19/16 0000 Signed Impressions: Service Date/Time: Wednesday, October 19, 2016 16:06 - CONCLUSION: 1. Vasospasm in the left MCA and SRI territories 2. Spasmolytic infusion, left internal carotid artery as above.. 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 Gume Mckeon MD Pelvis X-Ray 10/05/16 0110 Signed Impressions: Service Date/Time: Wednesday, October 05, 2016 01:22 - CONCLUSION: Unremarkable examination of the pelvis. Ruben Acuña Jr., MD Chest CT 10/05/16 0110 Signed Impressions: Service Date/Time: Wednesday, October 05, 2016 01:46 - CONCLUSION: 1. No acute intrathoracic abnormality. 2. Bibasilar atelectasis. 3. Cardiomegaly. 4. Prior granulomatous disease. Ruben Acuña Jr., MD Cervical Spine CT 10/05/16109 Signed Impressions: Service Date/Time: Wednesday, October 05, 2016 01:40 - CONCLUSION: 1. No fracture or dislocation. 2. Multilevel degenerative changes. Ruben Acuña Jr., MD Abdomen/Pelvis CT 10/05/16109 Signed Impressions: Service Date/Time: Wednesday, October 05, 2016 01:46 - CONCLUSION: 1. No acute trauma. 2. Rounded area of decreased density involving the pancreatic head. I cannot completely exclude pancreatic head mass. At some point MRI of the pancreas is suggested to further evaluate. 3. Focal area of poor enhancement involving the left kidney. This may relate to an area of parenchymal scarring. I cannot completely exclude a mass. This can be further assessed with MRI as well. Ruben Acuña Jr., MD Objective Remarks General: No acute distress. In soft wrist restraints. T-piece. Sitting in chair. Heart: Regular rate and rhythm. No murmur. Lungs: Clear to auscultation bilaterally. No wheezes, rales, or rhonchi. Breathing is nonlabored. Abdomen: Soft, nontender, nondistended. Positive bowel sounds. Extremities: No lower extremity edema. Psych: Alert. Answers questions by nodding. Tries to speak, but unable to do so because of trach. Procedures 10/05/16 right frontal twist drill for ventriculostomy placement 10/20/16 arterial line placement 10/23/16 bedside percutaneous tracheostomy under direct bronchoscopic visualization 10/24/16 PEG tube placement at bedside Urinary Catheter: No Vascular Central Line Catheter: No Line: Central Venous Catheter Side: Right A/P Problem List: (1) 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 ICD Code: I60.8 Status: Acute (2) Hypertension ICD Code: I10 Status: Chronic (3) Major neurocognitive disorder due to vascular disease, without behavioral disturbance, severe ICD Code: F01.50 Status: Acute (4) Septic shock ICD Code: A41.9 Status: Resolved (5) Hydrocephalus ICD Code: G91.9 Status: Acute (6) Intracranial hemorrhage ICD Code: I62.9 Status: Acute (7) Major neurocognitive disorder as late effect of traumatic brain injury with behavioral disturbance ICD Code: S06.9X9S Status: Acute (8) Encephalopathy ICD Code: G93.40 Status: Acute (9) Sepsis ICD Code: A41.9 Status: Resolved (10) Pneumonia ICD Code: J18.9 Status: Acute (11) Protein-calorie malnutrition, mild ICD Code: E44.1 Status: Acute (12) Acute respiratory failure with hypoxia and hypercarbia ICD Code: J96.01 Status: Acute Assessment and Plan 1. Aneurysmal subarachnoid hemorrhage, occurred on 10/05/16: Appreciate neurosurgery recommendations. Okay for Lovenox per neurosurgery. Continue Keppra for seizure prophylaxis. 2. Encephalopathy: Secondary to above. Mental status is improving slowly. 3. Acute hypoxic, hypercarbic respiratory failure: Tracheostomy 10/23/16. On T- piece. Continue supplemental oxygen. DuoNeb as needed, scheduled. Trach management per pulmonology. 4. Septic shock: Resolved. 5. Possible cerebral salt wasting: Continue sodium chloride tablets, Florinef. 6. Mild acute protein calorie malnutrition: Continue tube feedings. Monitor labs. 7. Pneumonia: Completed antibiotics. 8. C. difficile colitis: Continue Flagyl. Repeat C. difficile studies are negative. 9. Hyperglycemia of critical illness: Improved. 10. DVT prophylaxis: SCDs, YOUSIF hose, Lovenox. 11. GI prophylaxis: Protonix. 12. Hydrocephalus: Plan for shunt placement this week per neurosurgery. Awaiting clearance of C. difficile. Repeat head CT unchanged. 13. Hypokalemia: Improved. Problem Qualifiers (1) Hypertension: Qualified Code: I10 - Essential hypertension Enrique Mclain MD November 21, 2016 17:30
--- NOTE | 2016-11-21 19:21 | HHI.PR ---
Subjective Remarks 51 YOWM with TBI,RF,Trach On trach collar Mod amount of trach secretions Opens eyes More awake, strong cough No Fever Objective Vital Signs Vital Signs Date Time Temp Pulse Resp B/P Pulse Ox O2 Delivery O2 Flow Rate FiO2 11/21/16 18:00 94 11/21/16 16:00 94 11/21/16 16:00 98.4 93 21 128/78 95 11/21/16 14:00 99 11/21/16 12:00 98.7 95 17 133/83 97 11/21/16 12:00 96 11/21/16 10:00 95 11/21/16 08:00 99.2 99 24 126/87 94 11/21/16 08:00 99 11/21/16 07:56 93 T-piece 5.00 28 11/21/16 07:00 93 Trach Collar 28 11/21/16 06:00 95 11/21/16 04:00 91 11/21/16 04:00 98.9 91 23 129/81 96 11/21/16 02:00 97 11/21/16 00:00 98.9 100 24 149/89 96 11/21/16 00:00 100 11/20/16 22:00 94 11/20/16 20:12 98 11/20/16 20:00 98.6 96 26 149/85 94 11/20/16 20:00 94 Trach Collar 28 11/20/16 20:00 98 11/20/16 19:48 96 T-piece 28 I/O 11/20/16 11/20/16 11/20/16 11/21/16 11/21/16 11/21/16 07:00 15:00 23:00 07:00 15:00 23:00 Intake Total 412 ml 800 ml 762 ml 776 ml 680 ml Output Total 200 ml 100 ml Balance 212 ml 700 ml 762 ml 776 ml 680 ml IV Total 0 ml 200 ml 298 ml 400 ml 100 ml Tube Feeding 352 ml 480 ml 404 ml 316 ml 480 ml Tube Irrigant 60 ml 120 ml 60 ml 60 ml 100 ml Output Urine Total 200 ml 100 ml # Voids 4 4 2 3 2 # Bowel Movements 0 1 0 0 0 Result Diagram: 11/21/1634411/21/16344 Objective Remarks GENERAL: WBWN male, on Trach collar SKIN: Warm and dry. HEAD: Normocephalic. EYES: No scleral icterus. No injection or drainage. NECK: Supple, trachea midline. No JVD or lymphadenopathy. Trach collar CARDIOVASCULAR: Regular rate and rhythm without murmurs, gallops, or rubs. RESPIRATORY: Breath sounds equal bilaterally. No accessory muscle use. GASTROINTESTINAL: Abdomen soft, non-tender, nondistended. PEG tube in place MUSCULOSKELETAL: No cyanosis, or edema. BACK: Nontender without obvious deformity. No CVA tenderness. A/P Assessment and Plan RF, s/p Trach Intracranial bleed Hydrocephalous HTN C.diff positive PLAN: Cont Flagyl Trach collar Plans for Shunt after C.diff clears Renard Virgen MD November 21, 2016 19:21
[2016-11-21] MEDS: ENOXAPARIN SODIUM 40 MG/0.4 ML SYRINGE SQ SCH (19:36)
[2016-11-22] VITALS (14 sets, daily range): BP systolic 124–154; BP diastolic 78–97; PULSE 92–106; RESP 16–26; TEMP 98–99.1; O2SAT 95–100
[2016-11-22] MEDS: metroNIDAZOLE 500 MG TAB PO SCH ×4 (00:14→22:52)
[2016-11-22] MEDS: diphenhydrAMINE HCL 50 MG/ML VIAL IV PRN ×3 (00:14→22:52)
[2016-11-22] MEDS: CHLORHEXIDINE GLUCONATE 2 % 1 PACK (2 CLOTHS) TOP SCH (03:16)
[2016-11-22] MEDS: LABETALOL HCL 100 MG TAB PO SCH ×3 (03:41→21:17)
[2016-11-22 06:51] LABS: BICARBONATE 31.4 MEQ/L (21.0-32.0); CALCIUM 8.3 MG/DL (8.5-10.1); CREATININE 0.84 MG/DL (0.60-1.30)
[2016-11-22] MEDS: POTASSIUM CHLORIDE 25 MEQ EFFERVESCENT TAB PO PRN (07:07)
[2016-11-22] MEDS: ARTIFICIAL TEARS OPTH SOLN 15 ML BTL EACH EYE SCH ×3 (08:03→15:54)
[2016-11-22] MEDS: PANTOPRAZOLE SODIUM 40 MG VIAL IV SCH (08:04)
[2016-11-22] MEDS: levETIRAcetam INJ 500 MG in SODIUM CHLORIDE 0.9% INJ 100 ML IV SCH ×2 (08:04→21:19)
[2016-11-22] MEDS: SODIUM CHLORIDE 0.9% FLUSH 10 ML FLUSH IV FLUSH SCH (08:04)
[2016-11-22] MEDS: FLUDROCORTISONE ACETATE 0.1 MG TAB PO SCH ×2 (08:05→21:18)
[2016-11-22] MEDS: hydrALAZINE HCL 50 MG TAB PO SCH ×2 (08:05→21:18)
[2016-11-22] MEDS: amLODIPine BESYLATE 5 MG TAB PO SCH (08:05)
[2016-11-22] MEDS: LACTOBACILLUS ACIDOPHILUS TAB PO SCH ×2 (08:05→21:17)
[2016-11-22] MEDS: PRAVASTATIN SOD 40 MG TAB PO SCH (08:05)
[2016-11-22] MEDS: QUEtiapine FUMARATE 25 MG TAB PO SCH ×3 (08:05→21:18)
[2016-11-22] MEDS: SODIUM CHLORIDE 1 GRAM TAB PO SCH ×2 (08:06→22:52)
[2016-11-22] MEDS: NYSTATIN 100,000 U/GM PWD 15 GM BTL TOPICAL SCH ×3 (08:07→15:54)
--- NOTE | 2016-11-22 10:35 | HHI.NSPN ---
(Meir Sánchez PLANER HAND) Note Status Status: Progress Note (Meir Sánchez) Interval History Interval History 51 year old male presents with being brought in as a trauma alert due to a head injury with altered mental status and a diminished GCS. The patient was in the bathroom and fell and hit his head. This was an unwitnessed fall. According to the patient's the patient had been unresponsive for approximately 15 minutes by the time ambulance services arrived. When they arrived the patient was noted to be a GCS of 14, however his mentation would wax and wane and go down as low as 3 again. On arrival to the emergency department he felt extremely nauseated. The CT of the head revealed diffuse subarachnoid bleed. Emergently intubated in the trauma bay. Possible seizure activity. Intubated in the emergency room. 10/05/16: Endovascular coiling 10/07/16 rinse intubated and sedated. Ventriculostomy in place 10/09/16: Remains intubated and sedated. Increased agitation with attempts at sedation vacation 10/17/16: Pupils 2 mm. Intubated and sedated. Somewhat more responsive with decreased sedation. External ventricular drain and closed to reservoir again today. 10/19/16: TCD with vasospasm, to angio with 10 mg Verapamil IA given. 10/20/16: Patient with fevers up to 102.8 per Nursing and cultures sent, Nursing reports CSF milky & with sediment. TCD being repeated this afternoon due to vast difference from that done this morning and yesterday. Police Or [employer] Officer increased SBP parameters to 180-200 mm Hg to help overcome vasospasms. No increase in ICP. 10/21/16: Still with elevated temp but not as high. TCD yesterday demonstrated resolution of vasospasms but today it demonstrated a right SRI vasospasm. Patient with facial grimacing and attempted eye opening. CSF specimen sent yesterday w/o any organisms or WBCs seen on Gram stain. 10/23/16: Trach done 10/24/16: PEG done at bedside prior to being seen. Nursing reports prior to sedation he was following commands to all extremities although right was weaker. Mild vasospasm per TCD. 10/25/16: No evident distress. Noted to move BLE & slight LUE spontaneously. Did open eyes partially after having been stimulated. TCD being done. 10/26/16: No evident distress, attempted eye opening to verbal & attempted to follow some commands, some spontaneous movements noted BLE & LUE. TCD being done. 10/27/16: No apparent distress, no eye opening, follows some commands. 10/28/16: Remains tracheed, NAD, follows some commands, spontaneous movement of BLE & LUE noted. 10/29/16: Remains stable follows some commands, spontaneous movement of BLE & LUE noted 10/31/16: Patient trached and on T-piece when seen, follows commands, spontaneous movement of extremities noted. Did attempt to mouth words. 11/01/16: Patient doing well, on T-piece, follows commands, moving both feet spontaneously. Nursing reports he is intermittently following command and mouthing words. 11/02/16: Patient continues to do well, on T-piece, follows some commands, he does turn his head in direction of practitioner's voice. 11/03/16: Patient doing quite well today, on T-piece, follows commands, opens eyes briefly and holds up two fingers on left hand to command and tries with right. 11/04/16: Patient initially seen this morning with Therapy at the bedside. He had his eyes open at the time and would do a hand squeeze to command. When seen later he would not open his eyes but did follow commands and was able to show two fingers with each hand to command. Nursing reported that the patient mouthed that the RUE was not working. 6: His mental status is improving, he follows commands 4. He is awaiting transfer to senior living care facility. No acute events overnight. 7: slightly restless today, has transfer order out of unit pending. no changes to neuro checks overnight. 58: Patient doing well, follows some simple commands but not consistently 5: Patient remains stable, eyes are open, he nods yes when asked if he has a headache. CTA brain yesterday demonstrates enlarging ventricles with periventricular hypodensity characteristic of developing hydrocephalus. 5: Patient stable, does not open eyes to verbal stimuli but does follow commands. 11/10: Patient with stable neurological function. His eyes were initially open when seen but he kept them closed when examined although he did follow other commands. Infectious Disease saw the patient yesterday for a questionable drug- induced rash and signed off. Later in the day the patient had a positive PCR for Clostridium difficile and treatment was started. 11/11: Patient continues to be stable neurologically. He is seen spontaneously moving the right leg. 11/12/16: Pt opens eyes. Nods head to questions. Denies headache. States he is cold. 11/13/16: Pt Not opening eyes. Not following commands. Mouths ouch to pain. Spontaneously moves LEs intermittently. 11/14: Awake & alert, tracks with his eyes. Moving all extremities spontaneously and follows commands. 11/15: Awake & alert, moving all extremities spontaneously, follows commands. Pulse ox down to 85% due to T-piece being disconnected from trach when seen. Connected T-piece to trach and pulse ox up to 95%. 11/16: Patient awake & alert, watching TV, moving all extremities. 11/17: Patient awake & alert, fidgeting but no distress. 11/18: Patient seen this morning with eyes open prior to being seen but kept them shut when seen. He did follow commands and nodded appropriately to the ROS questions and mouthed words. 11/19: Patient wake this morning and fidgeting in bed. Nursing reports that during the night the patient was very agitated and pulling at his lines and remains restrained due to this. He receives Seroquel at 0900 and 1200 daily. He does follow commands. 11/20: Patient asleep but opens eyes to verbal stimuli. He does follow commands although he is fidgeting in bed and attempting to get out by himself. 11/21: Patient awake & alert in cardiac chair. He does verbalise and denies any complaint. He is following commands. Nursing reported that he stood 3 times this morning with Therapy. He went for a repeat CT brain this morning which demonstrated stable ventriculomegaly. 11/22: The patient is asleep in bed. He does not open his eyes but does attempt to verbalise when seen. He is following commands. (Meir Sánchez) Labs, Micro, & Vital Signs Constitutional Vital Signs Date Time Temp Pulse Resp B/P Pulse Ox O2 Delivery O2 Flow Rate FiO2 11/22/16 07:30 95 T-piece 28 11/22/16 06:00 97 11/22/16 04:00 96 11/22/16 04:00 98.7 96 22 146/84 99 11/22/16 02:00 96 11/22/16 00:00 106 11/22/16 00:00 98.9 106 16 125/89 96 11/21/16 22:00 95 11/21/16 20:00 98 11/21/16 20:00 98.7 98 24 152/63 98 11/21/16 20:00 98 Trach Collar 28 11/21/16 19:58 96 Trach Collar 6.00 28 11/21/16 19:04 93 11/21/16 18:00 94 11/21/16 16:00 94 11/21/16 16:00 98.4 93 21 128/78 95 11/21/16 14:00 99 11/21/16 12:00 98.7 95 17 133/83 97 11/21/16 12:00 96 11/22/16 06:59 Intake Total 1724 ml Balance 1724 ml (Meir Sánchez) Review of Systems/Exam ROS Unable to obtain a ROS due to patient being drowsy. Exam Resp: CTAB w/o W/R/R, equal excursion, non-laboured, trached & on trach collar. CV: S1S2 w/RRR w/o M/G/R, radial & pedal pulses 2+ bilaterally, cap refill < 2 sec. Monitor is sinus rhythm w/o any ectopy noted GI: Abdomen soft, nontender, positive bowel sounds, PEG tube with enteral feeds. : Condom cath to BSD. Neuro: Drowsy, does try to mouth some words, no eye opening Follows simple commands Moving all extremities (Meir Sánchez) Medications Current Medications Current Medications Medications (Trade) Dose Ordered Sig/Nava Route Start Time Stop Time Status Last Admin (Tylenol) 650 mg Q6H PRN PO 10/05/16 02:45 11/19/16 20:43 (Protonix Inj) 40 mg DAILY IV 10/05/16 09:00 11/22/16 08:04 (Tears Naturale Opth Soln) 1 drop TID EACH EYE 10/05/16 09:00 11/22/16 08:03 (Zofran Inj) 4 mg Q6H PRN IV 10/05/16 02:45 11/06/16 20:58 Miscellaneous Information 1 Q361D XX 10/05/16 02:45 10/05/16 02:45 (Chlorhexidine 2% Cloth) Taper DAILY@04 TOP 10/05/16 04:00 10/01/17 03:59 11/16/16 03:28 Chlorhexidine Gluconate 3 pack 3 pack UNSCH PRN TOP 10/05/16 02:45 (Keppra Inj/NS Inj) 105 ml @ 420 mls/hr Q12HR IV 10/05/16 09:00 11/22/16 08:04 (Pravachol) 40 mg DAILY PO 10/05/16 09:00 11/22/16 08:05 (NS Flush) See Protocol DAILY IV FLUSH 10/07/16 09:00 11/22/16 08:04 (NS Flush) See Protocol UNSCH PRN IV FLUSH 10/06/16 12:00 Sodium Chloride UNSCH PRN IV FLUSH 10/06/16 12:00 11/21/16 19:37 (Levophed Inj/NS 250 ml Inj) 254 ml @ 0 mls/hr TITRATE IV 10/06/16 18:00 10/28/16 20:14 (Florinef) 0.2 mg Q12HR PO 10/22/16 21:00 11/22/16 08:05 Enoxaparin Sodium 40 mg 40 mg Q24H SQ 10/23/16 21:00 11/21/16 19:36 Potassium Phosphate 30 mmol/ Sodium Chloride 260 ml @ 42 mls/hr UNSCH PRN IV 10/24/16 15:15 Potassium Chloride 100 ml @ 50 mls/hr Q2H PRN IV 11/03/16 05:15 11/20/16 07:31 (KCl 20 Meq Premix Inj) 100 ml @ 50 mls/hr Q2H PRN IV 11/03/16 05:15 11/21/16 02:40 Potassium Bicarb/ Potassium Chloride 50 meq 50 meq UNSCH PRN PO 11/03/16 05:15 11/22/16 07:07 Potassium Chloride 100 ml @ 25 mls/hr UNSCH PRN IV 11/03/16 05:15 11/19/16 01:44 Potassium Chloride 100 ml @ 50 mls/hr Q2H PRN IV 11/03/16 05:15 11/18/16 18:44 (Magnesium Sulfate Inj/NS Inj) 100 ml @ 50 mls/hr UNSCH PRN IV 11/03/16 05:15 Magnesium Oxide 800 mg 800 mg UNSCH PRN PO 11/03/16 05:15 (Magnesium Sulfate Inj/NS Inj) 100 ml @ 50 mls/hr UNSCH PRN IV 11/03/16 05:15 Potassium Phosphate 2000 mg 2,000 mg Q4H PRN PO 11/03/16 05:15 (Sodium Phosphate Inj/NS 250 ml Inj) 250 ml @ 42 mls/hr UNSCH PRN IV 11/03/16 05:15 (K-Phos) 2,000 mg UNSCH PRN PO/TUBE 11/03/16 05:15 (Trandate) 100 mg Q8H PO 11/03/16 20:00 11/22/16 03:41 (Apresoline) 50 mg Q12HR PO 11/03/16 19:00 11/22/16 08:05 (Norvasc) 5 mg DAILY PO 11/04/16 09:00 11/22/16 08:05 (Mycostatin Powder) 1 applic TID TOPICAL 11/06/16 09:00 11/22/16 08:07 (Lactinex) 1 tab Q12HR PO 11/06/16 21:00 11/22/16 08:05 (SEROquel) 25 mg BID@09,12 PO 11/07/16 09:00 11/22/16 08:05 (Colace Liq) 100 mg Q12H PRN G-TUBE 11/06/16 17:00 (Imodium) 2 mg UNSCH PRN PO 11/09/16 09:45 11/14/16 23:00 (Lomotil Tab) 1 tab Q6H PRN PO 11/09/16 09:45 (Flagyl) 500 mg Q8H PO 11/09/16 16:00 11/22/16 08:03 (Benadryl Inj) 50 mg Q6H PRN IV 11/16/16 23:00 11/22/16 00:14 (SEROquel) 25 mg HS PO 11/20/16 21:00 11/21/16 19:36 (Sodium Chloride) 2 gm BID PO 11/22/16 09:00 11/22/16 08:06 (Meir Sánchez) Medical Decision Making MDM Remarks 1. Neurological function appears stable this morning 2. 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 Left basal ganglia region CVA primarily per CT 4. CSF cultures w/o any growth 5. Max temp 98.9 6. Enterobacter cloacae in sputum from 7. Hypokalemia, resolved 8. Hypernatremia 9. Hydrocephalus 10. Clostridium difficile infection, negative stool x3 after tx CT brain without change in ventriculomegaly, no haemorrhage or mass effect (Meir Sánchez) Plan Plan Remarks Plan is to take patient to OR for a VERIFICATION SPECIALIST shunt on Thur Cognitive/speech therapy eval & tx Activity OOB to cardiac chair Continue PT & OT Continue abx per Surgical [employer] Officer Continue Keppra for probable seizure activity Okay for Lovenox from NSGY standpoint Ulcer prophylaxis Keep SBP between 120-160 mm Hg (Meir Sánchez) Attending Statement I have personally seen and examined the patient on the date of this note. Pertinent documentation and study results have been reviewed by the undersigned. I have personally developed the treatment plan and performed medical decision making. Agree with findings, exam, and treatment plan as noted above. No change in neurologic exam. Remains afebrile Plan ventriculoperitoneal shunt placement this week. (Gino Mace MD) Meir Sánchez November 22, 2016 10:35 Gino Mace MD November 24, 2016 20:33
--- NOTE | 2016-11-22 11:32 | HHI.PR ---
Subjective Remarks Follow up encephalopathy, hypokalemia, hypernatremia. Patient is sleeping. No events reported by nursing. Objective Vitals Vital Signs Date Time Temp Pulse Resp B/P Pulse Ox O2 Delivery O2 Flow Rate FiO2 11/22/16 10:00 92 11/22/16 08:00 95 11/22/16 08:00 95 Trach Collar 28 Humidified 11/22/16 08:00 98.0 95 22 145/85 95 11/22/16 07:30 95 T-piece 28 11/22/16 06:00 97 11/22/16 04:00 96 11/22/16 04:00 98.7 96 22 146/84 99 11/22/16 02:00 96 11/22/16 00:00 106 11/22/16 00:00 98.9 106 16 125/89 96 11/21/16 22:00 95 11/21/16 20:00 98 11/21/16 20:00 98.7 98 24 152/63 98 11/21/16 20:00 98 Trach Collar 28 11/21/16 19:58 96 Trach Collar 6.00 28 11/21/16 19:04 93 11/21/16 18:00 94 11/21/16 16:00 94 11/21/16 16:00 98.4 93 21 128/78 95 11/21/16 14:00 99 11/21/16 12:00 98.7 95 17 133/83 97 11/21/16 12:00 96 I/O 11/21/16 11/21/16 11/21/16 11/22/16 11/22/16 11/22/16 06:59 14:59 22:59 06:59 14:59 22:59 Intake Total 776 ml 680 ml 553 ml 491 ml Output Total 0 ml Balance 776 ml 680 ml 553 ml 491 ml 0 ml IV Total 400 ml 100 ml 125 ml 0 ml Tube Feeding 316 ml 480 ml 328 ml 391 ml Tube Irrigant 60 ml 100 ml 100 ml 100 ml Tube Feeding Residual Discard 0 ml # Voids 3 2 3 2 # Bowel Movements 0 0 1 0 Result Diagram: 11/21/16 0345 11/22/16 0608 Imaging Last Impressions Head CT 11/21/16 0500 Signed Impressions: Service Date/Time: Monday, November 21, 2016 04:29 - CONCLUSION: No change in ventriculomegaly without any hemorrhage or mass effect. Rosemarie Sagastume MD Chest X-Ray 11/01/16 0600 Signed Impressions: Service Date/Time: Tuesday, November 01, 2016 04:37 - CONCLUSION: 1. No acute cardiopulmonary disease. Trevin De León MD Transcranial Doppler Study Complete 10/26/16 0700 Signed Impressions: Service Date/Time: Wednesday, October 26, 2016 08:20 - CONCLUSION: Minimal interval improvement with no evidence for vasospasm. Christian Song MD FACR Neck CTA 10/19/16 0000 Signed Impressions: Service Date/Time: Wednesday, October 19, 2016 14:19 - CONCLUSION: Negative for dissection or significant stenosis. Christian Song MD FACR Head CTA 10/19/16 0000 Signed Impressions: Service Date/Time: Wednesday, October 19, 2016 14:19 - CONCLUSION: 1. Interval development of significant vasospasm in the left MCA and SRI territories. 2. Mild vasospasm in the basilar artery.. Gume Mckeon MD Cerebral Arteriogram 10/19/16 0000 Signed Impressions: Service Date/Time: Wednesday, October 19, 2016 16:06 - CONCLUSION: 1. Vasospasm in the left MCA and SRI territories 2. Spasmolytic infusion, left internal carotid artery as above.. 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 Gume Mckeon MD Pelvis X-Ray 10/05/16109 Signed Impressions: Service Date/Time: Wednesday, October 05, 2016 01:22 - CONCLUSION: Unremarkable examination of the pelvis. Ruben Acuña Jr., MD Chest CT 10/05/16109 Signed Impressions: Service Date/Time: Wednesday, October 05, 2016 01:46 - CONCLUSION: 1. No acute intrathoracic abnormality. 2. Bibasilar atelectasis. 3. Cardiomegaly. 4. Prior granulomatous disease. Ruben Acuña Jr., MD Cervical Spine CT 10/05/16109 Signed Impressions: Service Date/Time: Wednesday, October 05, 2016 01:40 - CONCLUSION: 1. No fracture or dislocation. 2. Multilevel degenerative changes. Ruben Acuña Jr., MD Abdomen/Pelvis CT 10/05/16 0110 Signed Impressions: Service Date/Time: Wednesday, October 05, 2016 01:46 - CONCLUSION: 1. No acute trauma. 2. Rounded area of decreased density involving the pancreatic head. I cannot completely exclude pancreatic head mass. At some point MRI of the pancreas is suggested to further evaluate. 3. Focal area of poor enhancement involving the left kidney. This may relate to an area of parenchymal scarring. I cannot completely exclude a mass. This can be further assessed with MRI as well. Ruben Acuña Jr., MD Objective Remarks General: No acute distress. In soft wrist restraints. T-piece. Heart: Regular rate and rhythm. No murmur. Lungs: Clear to auscultation bilaterally. No wheezes, rales, or rhonchi. Breathing is nonlabored. Abdomen: Soft, nontender, nondistended. Positive bowel sounds. Extremities: No lower extremity edema. Psych: Sleeping. Procedures 10/05/16 right frontal twist drill for ventriculostomy placement 10/20/16 arterial line placement 10/23/16 bedside percutaneous tracheostomy under direct bronchoscopic visualization 10/24/16 PEG tube placement at bedside Urinary Catheter: No Line: Central Venous Catheter Side: Right A/P Problem List: (1) 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 ICD Code: I60.8 Status: Acute (2) Hypertension ICD Code: I10 Status: Chronic (3) Major neurocognitive disorder due to vascular disease, without behavioral disturbance, severe ICD Code: F01.50 Status: Acute (4) Septic shock ICD Code: A41.9 Status: Resolved (5) Hydrocephalus ICD Code: G91.9 Status: Acute (6) Intracranial hemorrhage ICD Code: I62.9 Status: Acute (7) Major neurocognitive disorder as late effect of traumatic brain injury with behavioral disturbance ICD Code: S06.9X9S Status: Acute (8) Encephalopathy ICD Code: G93.40 Status: Acute (9) Sepsis ICD Code: A41.9 Status: Resolved (10) Pneumonia ICD Code: J18.9 Status: Acute (11) Protein-calorie malnutrition, mild ICD Code: E44.1 Status: Acute (12) Acute respiratory failure with hypoxia and hypercarbia ICD Code: J96.01 Status: Acute Assessment and Plan 1. Aneurysmal subarachnoid hemorrhage, occurred on 10/05/16: Appreciate neurosurgery recommendations. Okay for Lovenox per neurosurgery. Continue Keppra for seizure prophylaxis. 2. Encephalopathy: Secondary to above. Mental status is improving slowly. 3. Acute hypoxic, hypercarbic respiratory failure: Tracheostomy 10/23/16. On T- piece. Continue supplemental oxygen. DuoNeb as needed, scheduled. Trach management per pulmonology. 4. Septic shock: Resolved. 5. Possible cerebral salt wasting: Continue sodium chloride tablets, Florinef. 6. Mild acute protein calorie malnutrition: Continue tube feedings. Monitor labs. 7. Pneumonia: Completed antibiotics. 8. C. difficile colitis: Continue Flagyl. Repeat C. difficile studies are negative. 9. Hyperglycemia of critical illness: Improved. 10. DVT prophylaxis: SCDs, YOUSIF hose, Lovenox. 11. GI prophylaxis: Protonix. 12. Hydrocephalus: Plan for shunt placement on . Repeat head CT unchanged. 13. Hypokalemia: Supplement potassium per electrolyte protocol. Problem Qualifiers (1) Hypertension: Qualified Code: I10 - Essential hypertension Enrique Mclain MD November 22, 2016 11:32
--- NOTE | 2016-11-22 19:25 | HHI.PR ---
Subjective Remarks 51 YOWM with TBI,RF,Trach On trach collar Mod amount of trach secretions More awake, strong cough No Fever restless Objective Vital Signs Vital Signs Date Time Temp Pulse Resp B/P Pulse Ox O2 Delivery O2 Flow Rate FiO2 11/22/16 19:23 100 T-piece 28 11/22/16 18:00 93 11/22/16 16:00 98.8 102 26 154/97 96 11/22/16 16:00 102 11/22/16 14:00 97 11/22/16 12:00 103 11/22/16 12:00 98.2 103 23 124/78 100 11/22/16 10:00 92 11/22/16 08:00 95 11/22/16 08:00 95 Trach Collar 28 Humidified 11/22/16 08:00 98.0 95 22 145/85 95 11/22/16 07:30 95 T-piece 28 11/22/16 06:00 97 11/22/16 04:00 96 11/22/16 04:00 98.7 96 22 146/84 99 11/22/16 02:00 96 11/22/16 00:00 106 11/22/16 00:00 98.9 106 16 125/89 96 11/21/16 22:00 95 11/21/16 20:00 98 11/21/16 20:00 98.7 98 24 152/63 98 11/21/16 20:00 98 Trach Collar 28 11/21/16 19:58 96 Trach Collar 6.00 28 I/O 11/21/16 11/21/16 11/21/16 11/22/16 11/22/16 11/22/16 07:00 15:00 23:00 07:00 15:00 23:00 Intake Total 776 ml 680 ml 553 ml 491 ml 834 ml 100 ml Output Total 150 ml 0 ml Balance 776 ml 680 ml 553 ml 491 ml 684 ml 100 ml IV Total 400 ml 100 ml 125 ml 0 ml 100 ml Tube Feeding 316 ml 480 ml 328 ml 391 ml 434 ml Tube Irrigant 60 ml 100 ml 100 ml 100 ml Other 300 ml 100 ml Output Urine Total 150 ml Tube Feeding Residual Discard 0 ml 0 ml # Voids 3 2 3 2 3 # Bowel Movements 0 0 1 0 0 Result Diagram: 11/21/16 0345 11/22/16 0608 Objective Remarks GENERAL: WBWN male, on Trach collar SKIN: Warm and dry. HEAD: Normocephalic. EYES: No scleral icterus. No injection or drainage. NECK: Supple, trachea midline. No JVD or lymphadenopathy. Trach collar CARDIOVASCULAR: Regular rate and rhythm without murmurs, gallops, or rubs. RESPIRATORY: Breath sounds equal bilaterally. No accessory muscle use. GASTROINTESTINAL: Abdomen soft, non-tender, nondistended. PEG tube in place MUSCULOSKELETAL: No cyanosis, or edema. BACK: Nontender without obvious deformity. No CVA tenderness. A/P Assessment and Plan RF, s/p Trach Intracranial bleed Hydrocephalous HTN C.diff positive PLAN: Cont Flagyl Trach collar Plans for Shunt after C.diff clears Secretions decreased Renard Virgen MD November 22, 2016 19:25
[2016-11-22] MEDS: ENOXAPARIN SODIUM 40 MG/0.4 ML SYRINGE SQ SCH (21:19)
[2016-11-23] VITALS (14 sets, daily range): BP systolic 114–178; BP diastolic 74–90; PULSE 73–108; RESP 17–42; TEMP 98.1–98.7; O2SAT 95–98
[2016-11-23] MEDS: CHLORHEXIDINE GLUCONATE 2 % 1 PACK (2 CLOTHS) TOP SCH (04:00)
[2016-11-23 04:22] LABS: AUTOMATED NEUTROPHIL # 4.7 TH/MM3 (1.8-7.7); BASOPHIL % 0.6 % (0.0-2.0); EOSINOPHIL # 0.4 TH/MM3 (0-0.4); EOSINOPHIL % 5.1 % (0.0-4.0); HEMATOCRIT 29.9 % (39.0-51.0); HEMOGLOBIN 9.8 GM/DL (13.0-17.0); LYMPH % 18.7 % (9.0-44.0); LYMPHOCYTE # 1.3 TH/MM3 (1.0-4.8); MEAN CELL VOLUME 87.3 FL (80.0-100.0); MEAN CORPUSCULAR HEMOGLOBIN 28.5 PG (27.0-34.0); MEAN CORPUSCULAR HGB CONC 32.6 % (32.0-36.0); MEAN PLATELET VOLUME 9.2 FL (7.0-11.0); MONO % 9.5 % (0.0-8.0); MONOCYTE # 0.7 TH/MM3 (0-0.9); NEUT % 66.1 % (16.0-70.0); PLATELET COUNT 234 TH/MM3 (150-450); RED BLOOD COUNT 3.43 MIL/MM3 (4.50-5.90); RED CELL DISTRIBUTION WIDTH 15.1 % (11.6-17.2); WHITE BLOOD COUNT 7.1 TH/MM3 (4.0-11.0)
[2016-11-23 04:48] LABS: BICARBONATE 30.8 MEQ/L (21.0-32.0); CALCIUM 8.4 MG/DL (8.5-10.1); CREATININE 0.84 MG/DL (0.60-1.30)
[2016-11-23] MEDS: LABETALOL HCL 100 MG TAB PO SCH ×3 (05:43→21:16)
[2016-11-23] MEDS: POTASSIUM CHLOR 20 MEQ PREMIX 100 ML IV PRN ×4 (06:02→16:05)
[2016-11-23] MEDS: ARTIFICIAL TEARS OPTH SOLN 15 ML BTL EACH EYE SCH ×3 (07:25→16:05)
[2016-11-23] MEDS: metroNIDAZOLE 500 MG TAB PO SCH ×3 (07:25→23:33)
[2016-11-23] MEDS: PANTOPRAZOLE SODIUM 40 MG VIAL IV SCH (07:26)
[2016-11-23] MEDS: FLUDROCORTISONE ACETATE 0.1 MG TAB PO SCH ×2 (07:26→21:16)
[2016-11-23] MEDS: levETIRAcetam INJ 500 MG in SODIUM CHLORIDE 0.9% INJ 100 ML IV SCH ×2 (07:26→21:16)
[2016-11-23] MEDS: SODIUM CHLORIDE 0.9% FLUSH 10 ML FLUSH IV FLUSH SCH (07:26)
[2016-11-23] MEDS: hydrALAZINE HCL 50 MG TAB PO SCH ×2 (07:26→21:17)
[2016-11-23] MEDS: QUEtiapine FUMARATE 25 MG TAB PO SCH ×3 (07:27→21:16)
[2016-11-23] MEDS: amLODIPine BESYLATE 5 MG TAB PO SCH (07:27)
[2016-11-23] MEDS: LACTOBACILLUS ACIDOPHILUS TAB PO SCH ×2 (07:27→21:16)
[2016-11-23] MEDS: PRAVASTATIN SOD 40 MG TAB PO SCH (07:27)
[2016-11-23] MEDS: SODIUM CHLORIDE 1 GRAM TAB PO SCH (07:28)
[2016-11-23] MEDS: diphenhydrAMINE HCL 50 MG/ML VIAL IV PRN ×2 (07:28→21:16)
[2016-11-23] MEDS: NYSTATIN 100,000 U/GM PWD 15 GM BTL TOPICAL SCH ×3 (07:28→16:05)
[2016-11-23] MEDS: POTASSIUM CHLORIDE 20 MEQ CONTROLLED RELEASE TAB PO SCH ×2 (08:31→21:16)
--- NOTE | 2016-11-23 08:54 | HHI.NSPN ---
(Meir Sánchez SWING DRIVER) Note Status Status: Progress Note (Meir Sánchez) Interval History Interval History 51 year old male presents with being brought in as a trauma alert due to a head injury with altered mental status and a diminished GCS. The patient was in the bathroom and fell and hit his head. This was an unwitnessed fall. According to the patient's the patient had been unresponsive for approximately 15 minutes by the time ambulance services arrived. When they arrived the patient was noted to be a GCS of 14, however his mentation would wax and wane and go down as low as 3 again. On arrival to the emergency department he felt extremely nauseated. The CT of the head revealed diffuse subarachnoid bleed. Emergently intubated in the trauma bay. Possible seizure activity. Intubated in the emergency room. 10/05/16: Endovascular coiling 10/07/16 rinse intubated and sedated. Ventriculostomy in place 10/09/16: Remains intubated and sedated. Increased agitation with attempts at sedation vacation 10/17/16: Pupils 2 mm. Intubated and sedated. Somewhat more responsive with decreased sedation. External ventricular drain and closed to reservoir again today. 10/19/16: TCD with vasospasm, to angio with 10 mg Verapamil IA given. 10/20/16: Patient with fevers up to 102.8 per Nursing and cultures sent, Nursing reports CSF milky & with sediment. TCD being repeated this afternoon due to vast difference from that done this morning and yesterday. General Practitioner increased SBP parameters to 180-200 mm Hg to help overcome vasospasms. No increase in ICP. 10/21/16: Still with elevated temp but not as high. TCD yesterday demonstrated resolution of vasospasms but today it demonstrated a right SRI vasospasm. Patient with facial grimacing and attempted eye opening. CSF specimen sent yesterday w/o any organisms or WBCs seen on Gram stain. 10/23/16: Trach done 10/24/16: PEG done at bedside prior to being seen. Nursing reports prior to sedation he was following commands to all extremities although right was weaker. Mild vasospasm per TCD. 10/25/16: No evident distress. Noted to move BLE & slight LUE spontaneously. Did open eyes partially after having been stimulated. TCD being done. 10/26/16: No evident distress, attempted eye opening to verbal & attempted to follow some commands, some spontaneous movements noted BLE & LUE. TCD being done. 10/27/16: No apparent distress, no eye opening, follows some commands. 10/28/16: Remains tracheed, NAD, follows some commands, spontaneous movement of BLE & LUE noted. 10/29/16: Remains stable follows some commands, spontaneous movement of BLE & LUE noted 10/31/16: Patient trached and on T-piece when seen, follows commands, spontaneous movement of extremities noted. Did attempt to mouth words. 11/01/16: Patient doing well, on T-piece, follows commands, moving both feet spontaneously. Nursing reports he is intermittently following command and mouthing words. 11/02/16: Patient continues to do well, on T-piece, follows some commands, he does turn his head in direction of practitioner's voice. 11/03/16: Patient doing quite well today, on T-piece, follows commands, opens eyes briefly and holds up two fingers on left hand to command and tries with right. 11/04/16: Patient initially seen this morning with Therapy at the bedside. He had his eyes open at the time and would do a hand squeeze to command. When seen later he would not open his eyes but did follow commands and was able to show two fingers with each hand to command. Nursing reported that the patient mouthed that the RUE was not working. 6: His mental status is improving, he follows commands 4. [facility]. No acute events overnight. 7: slightly restless today, has transfer order out of unit pending. no changes to neuro checks overnight. 58: Patient doing well, follows some simple commands but not consistently 5: Patient remains stable, eyes are open, he nods yes when asked if he has a headache. CTA brain yesterday demonstrates enlarging ventricles with periventricular hypodensity characteristic of developing hydrocephalus. 5: Patient stable, does not open eyes to verbal stimuli but does follow commands. 11/10: Patient with stable neurological function. His eyes were initially open when seen but he kept them closed when examined although he did follow other commands. Infectious Disease saw the patient yesterday for a questionable drug- induced rash and signed off. Later in the day the patient had a positive PCR for Clostridium difficile and treatment was started. 11/11: Patient continues to be stable neurologically. He is seen spontaneously moving the right leg. 11/12/16: Pt opens eyes. Nods head to questions. Denies headache. States he is cold. 11/13/16: Pt Not opening eyes. Not following commands. Mouths ouch to pain. Spontaneously moves LEs intermittently. 11/14: Awake & alert, tracks with his eyes. Moving all extremities spontaneously and follows commands. 11/15: Awake & alert, moving all extremities spontaneously, follows commands. Pulse ox down to 85% due to T-piece being disconnected from trach when seen. Connected T-piece to trach and pulse ox up to 95%. 11/16: Patient awake & alert, watching TV, moving all extremities. 11/17: Patient awake & alert, fidgeting but no distress. 11/18: Patient seen this morning with eyes open prior to being seen but kept them shut when seen. He did follow commands and nodded appropriately to the ROS questions and mouthed words. 11/19: Patient wake this morning and fidgeting in bed. Nursing reports that during the night the patient was very agitated and pulling at his lines and remains restrained due to this. He receives Seroquel at 0900 and 1200 daily. He does follow commands. 11/20: Patient asleep but opens eyes to verbal stimuli. He does follow commands although he is fidgeting in bed and attempting to get out by himself. 11/21: Patient awake & alert in cardiac chair. He does verbalise and denies any complaint. He is following commands. Nursing reported that he stood 3 times this morning with Therapy. He went for a repeat CT brain this morning which demonstrated stable ventriculomegaly. 11/22: The patient is asleep in bed. He does not open his eyes but does attempt to verbalise when seen. He is following commands. 11/23: The patient is awake & alert. He follows commands and attempts to verbalise. (Meir Sánchez) Labs, Micro, & Vital Signs Constitutional Vital Signs Date Time Temp Pulse Resp B/P Pulse Ox O2 Delivery O2 Flow Rate FiO2 11/23/16 06:00 73 11/23/16 04:00 98.2 90 18 135/84 97 11/23/16 04:00 90 11/23/16 02:00 98 11/23/16 00:00 98.4 93 22 130/90 95 11/23/16 00:00 93 11/22/16 22:00 99 11/22/16 20:00 99.1 99 22 138/81 95 11/22/16 20:00 96 11/22/16 19:23 100 Trach Collar 28 11/22/16 19:00 97 Trach Collar 28 Humidified 11/22/16 18:00 93 11/22/16 16:00 98.8 102 26 154/97 96 11/22/16 16:00 102 11/22/16 14:00 97 11/22/16 12:00 103 11/22/16 12:00 98.2 103 23 124/78 100 11/22/16 10:00 92 11/23/16 07:00 Intake Total 2016 ml Output Total 1150.0 ml Balance 866.0 ml (Meir Sánchez) Review of Systems/Exam ROS Unable to obtain a ROS due to patient being trached and limited ability to verbalise. Exam Resp: CTAB w/o W/R/R, equal excursion, non-laboured, trached & on trach collar. CV: S1S2 w/RRR w/o M/G/R, radial & pedal pulses 2+ bilaterally, cap refill < 2 sec. Monitor is sinus rhythm w/o any ectopy noted GI: Abdomen soft, nontender, positive bowel sounds, PEG tube with enteral feeds. : Condom cath to BSD. Neuro: Awake & alert Attempts to verbalise Follows simple commands Moving all extremities Good muscle strength (Meir Sánchez) Medications Current Medications Current Medications Medications (Trade) Dose Ordered Sig/Nava Route Start Time Stop Time Status Last Admin (Tylenol) 650 mg Q6H PRN PO 10/05/16 02:45 11/19/16 20:43 (Protonix Inj) 40 mg DAILY IV 10/05/16 09:00 11/23/16 07:26 (Tears Naturale Opth Soln) 1 drop TID EACH EYE 10/05/16 09:00 11/23/16 07:25 (Zofran Inj) 4 mg Q6H PRN IV 10/05/16 02:45 11/06/16 20:58 Miscellaneous Information 1 Q361D XX 10/05/16 02:45 10/05/16 02:45 (Chlorhexidine 2% Cloth) Taper DAILY@04 TOP 10/05/16 04:00 10/01/17 03:59 11/16/16 03:28 Chlorhexidine Gluconate 3 pack 3 pack UNSCH PRN TOP 10/05/16 02:45 (Keppra Inj/NS Inj) 105 ml @ 420 mls/hr Q12HR IV 10/05/16 09:00 11/23/16 07:26 (Pravachol) 40 mg DAILY PO 10/05/16 09:00 11/23/16 07:27 (NS Flush) See Protocol DAILY IV FLUSH 10/07/16 09:00 11/23/16 07:26 (NS Flush) See Protocol UNSCH PRN IV FLUSH 10/06/16 12:00 Sodium Chloride UNSCH PRN IV FLUSH 10/06/16 12:00 11/21/16 19:37 (Levophed Inj/NS 250 ml Inj) 254 ml @ 0 mls/hr TITRATE IV 10/06/16 18:00 10/28/16 20:14 (Florinef) 0.2 mg Q12HR PO 10/22/16 21:00 11/23/16 07:26 Enoxaparin Sodium 40 mg 40 mg Q24H SQ 10/23/16 21:00 11/22/16 21:19 Potassium Phosphate 30 mmol/ Sodium Chloride 260 ml @ 42 mls/hr UNSCH PRN IV 10/24/16 15:15 Potassium Chloride 100 ml @ 50 mls/hr Q2H PRN IV 11/03/16 05:15 11/20/16 07:31 (KCl 20 Meq Premix Inj) 100 ml @ 50 mls/hr Q2H PRN IV 11/03/16 05:15 11/23/16 07:28 Potassium Bicarb/ Potassium Chloride 50 meq 50 meq UNSCH PRN PO 11/03/16 05:15 11/22/16 07:07 Potassium Chloride 100 ml @ 25 mls/hr UNSCH PRN IV 11/03/16 05:15 11/19/16 01:44 Potassium Chloride 100 ml @ 50 mls/hr Q2H PRN IV 11/03/16 05:15 11/18/16 18:44 (Magnesium Sulfate Inj/NS Inj) 100 ml @ 50 mls/hr UNSCH PRN IV 11/03/16 05:15 Magnesium Oxide 800 mg 800 mg UNSCH PRN PO 11/03/16 05:15 (Magnesium Sulfate Inj/NS Inj) 100 ml @ 50 mls/hr UNSCH PRN IV 11/03/16 05:15 Potassium Phosphate 2000 mg 2,000 mg Q4H PRN PO 11/03/16 05:15 (Sodium Phosphate Inj/NS 250 ml Inj) 250 ml @ 42 mls/hr UNSCH PRN IV 11/03/16 05:15 (K-Phos) 2,000 mg UNSCH PRN PO/TUBE 11/03/16 05:15 (Trandate) 100 mg Q8H PO 11/03/16 20:00 11/23/16 05:43 (Apresoline) 50 mg Q12HR PO 11/03/16 19:00 11/23/16 07:26 (Norvasc) 5 mg DAILY PO 11/04/16 09:00 11/23/16 07:27 (Mycostatin Powder) 1 applic TID TOPICAL 11/06/16 09:00 11/23/16 07:28 (Lactinex) 1 tab Q12HR PO 11/06/16 21:00 11/23/16 07:27 (SEROquel) 25 mg BID@09,12 PO 11/07/16 09:00 11/23/16 07:27 (Colace Liq) 100 mg Q12H PRN G-TUBE 11/06/16 17:00 (Imodium) 2 mg UNSCH PRN PO 11/09/16 09:45 11/14/16 23:00 (Lomotil Tab) 1 tab Q6H PRN PO 11/09/16 09:45 (Flagyl) 500 mg Q8H PO 11/09/16 16:00 11/23/16 07:25 (Benadryl Inj) 50 mg Q6H PRN IV 11/16/16 23:00 11/23/16 07:28 (SEROquel) 25 mg HS PO 11/20/16 21:00 11/22/16 21:18 (Sodium Chloride) 2 gm BID PO 11/22/16 09:00 11/23/16 07:28 (KCl) 20 meq BID PO 11/23/16 09:00 11/23/16 08:31 (Meir Sánchez) Medical Decision Making MDM Remarks 1. Neurological function stable 2. 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 Left basal ganglia region CVA primarily per CT 4. CSF cultures w/o any growth 5. Max temp 99.1 6. Enterobacter cloacae in sputum from 7. Hypokalemia, resolved 8. Hypernatremia 9. Hydrocephalus 10. 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 pertinent documentation and study results have been reviewed by the undersigned. I have personally developed the treatment plan and performed medical decision making. Agree with findings, exam, and treatment plan as noted above. Stable neurologic exam Most recent follow-up CT scan with persistent at least moderate ventriculomegaly. Plan to proceed with ventriculoperitoneal shunt on 11/24/16 (Gino Mace MD) Meir Sánchez November 23, 2016 08:53 Gino Mace MD November 23, 2016 23:58
--- NOTE | 2016-11-23 11:54 | HHI.PR ---
Subjective Remarks Follow up encephalopathy. Patient awakens to voice. Does not answer questions today. Objective Vitals Vital Signs Date Time Temp Pulse Resp B/P Pulse Ox O2 Delivery O2 Flow Rate FiO2 11/23/16 07:45 98 Trach Collar 5.00 28 11/23/16 06:00 73 11/23/16 04:00 98.2 90 18 135/84 97 11/23/16 04:00 90 11/23/16 02:00 98 11/23/16 00:00 98.4 93 22 130/90 95 11/23/16 00:00 93 11/22/16 22:00 99 11/22/16 20:00 99.1 99 22 138/81 95 11/22/16 20:00 96 11/22/16 19:23 100 Trach Collar 28 11/22/16 19:00 97 Trach Collar 28 Humidified 11/22/16 18:00 93 11/22/16 16:00 98.8 102 26 154/97 96 11/22/16 16:00 102 11/22/16 14:00 97 11/22/16 12:00 103 11/22/16 12:00 98.2 103 23 124/78 100 I/O 11/22/16 11/22/16 11/22/16 11/23/16 11/23/16 11/23/16 06:59 14:59 22:59 06:59 14:59 22:59 Intake Total 491 ml 834 ml 675 ml 507 ml Output Total 150 ml 450 ml 550 ml Balance 491 ml 684 ml 225 ml -43 ml IV Total 0 ml 100 ml 100 ml Tube Feeding 391 ml 434 ml 385 ml 447 ml Tube Irrigant 100 ml Other 300 ml 190 ml 60 ml Output Urine Total 150 ml 450 ml 550 ml Tube Feeding Residual Discard 0 ml 0 ml # Voids 2 3 # Bowel Movements 0 0 1 0 Result Diagram: 11/23/164 11/23/164 Imaging Last Impressions Head CT 11/21/16 0500 Signed Impressions: Service Date/Time: Monday, November 21, 2016 04:29 - CONCLUSION: No change in ventriculomegaly without any hemorrhage or mass effect. Rosemarie Sagastume MD Chest X-Ray 11/01/16 0600 Signed Impressions: Service Date/Time: Tuesday, November 01, 2016 04:37 - CONCLUSION: 1. No acute cardiopulmonary disease. Trevin De León MD Transcranial Doppler Study Complete 10/26/16 0700 Signed Impressions: Service Date/Time: Wednesday, October 26, 2016 08:20 - CONCLUSION: Minimal interval improvement with no evidence for vasospasm. Christian Song MD FACR Neck CTA 10/19/16 0000 Signed Impressions: Service Date/Time: Wednesday, October 19, 2016 14:19 - CONCLUSION: Negative for dissection or significant stenosis. Christian Song MD FACR Head CTA 10/19/16 0000 Signed Impressions: Service Date/Time: Wednesday, October 19, 2016 14:19 - CONCLUSION: 1. Interval development of significant vasospasm in the left MCA and SRI territories. 2. Mild vasospasm in the basilar artery.. Gume Mckeon MD Cerebral Arteriogram 10/19/16 0000 Signed Impressions: Service Date/Time: Wednesday, October 19, 2016 16:06 - CONCLUSION: 1. Vasospasm in the left MCA and SRI territories 2. Spasmolytic infusion, left internal carotid artery as above.. 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 Gume Mckeon MD Pelvis X-Ray 10/05/16109 Signed Impressions: Service Date/Time: Wednesday, October 05, 2016 01:22 - CONCLUSION: Unremarkable examination of the pelvis. Ruben Acuña Jr., MD Chest CT 10/05/16109 Signed Impressions: Service Date/Time: Wednesday, October 05, 2016 01:46 - CONCLUSION: 1. No acute intrathoracic abnormality. 2. Bibasilar atelectasis. 3. Cardiomegaly. 4. Prior granulomatous disease. Ruben Acuña Jr., MD Cervical Spine CT 10/05/16109 Signed Impressions: Service Date/Time: Wednesday, October 05, 2016 01:40 - CONCLUSION: 1. No fracture or dislocation. 2. Multilevel degenerative changes. Ruben Acuña Jr., MD Abdomen/Pelvis CT 10/05/16109 Signed Impressions: Service Date/Time: Wednesday, October 05, 2016 01:46 - CONCLUSION: 1. No acute trauma. 2. Rounded area of decreased density involving the pancreatic head. I cannot completely exclude pancreatic head mass. At some point MRI of the pancreas is suggested to further evaluate. 3. Focal area of poor enhancement involving the left kidney. This may relate to an area of parenchymal scarring. I cannot completely exclude a mass. This can be further assessed with MRI as well. Ruben Acuña Jr., MD Objective Remarks General: No acute distress. In soft wrist restraints. Trach collar. Heart: Regular rate and rhythm. No murmur. Lungs: Clear to auscultation bilaterally. No wheezes, rales, or rhonchi. Breathing is nonlabored. Abdomen: Soft, nontender, nondistended. Positive bowel sounds. Extremities: No lower extremity edema. SCDs. Psych: Sleeping, but awakens easily. Procedures 10/05/16 right frontal twist drill for ventriculostomy placement 10/20/16 arterial line placement 10/23/16 bedside percutaneous tracheostomy under direct bronchoscopic visualization 10/24/16 PEG tube placement at bedside Urinary Catheter: No Vascular Central Line Catheter: No A/P Problem List: (1) 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 ICD Code: I60.8 Status: Acute (2) Hypertension ICD Code: I10 Status: Chronic (3) Major neurocognitive disorder due to vascular disease, without behavioral disturbance, severe ICD Code: F01.50 Status: Acute (4) Septic shock ICD Code: A41.9 Status: Resolved (5) Hydrocephalus ICD Code: G91.9 Status: Acute (6) Intracranial hemorrhage ICD Code: I62.9 Status: Acute (7) Major neurocognitive disorder as late effect of traumatic brain injury with behavioral disturbance ICD Code: S06.9X9S Status: Acute (8) Encephalopathy ICD Code: G93.40 Status: Acute (9) Sepsis ICD Code: A41.9 Status: Resolved (10) Pneumonia ICD Code: J18.9 Status: Acute (11) Protein-calorie malnutrition, mild ICD Code: E44.1 Status: Acute (12) Acute respiratory failure with hypoxia and hypercarbia ICD Code: J96.01 Status: Acute Assessment and Plan 1. Aneurysmal subarachnoid hemorrhage, occurred on 10/05/16: Appreciate neurosurgery recommendations. Okay for Lovenox per neurosurgery. Continue Keppra for seizure prophylaxis. 2. Encephalopathy: Secondary to above. Mental status is improving slowly. 3. Acute hypoxic, hypercarbic respiratory failure: Tracheostomy 10/23/16. Continue supplemental oxygen. DuoNeb as needed, scheduled. Trach management per pulmonology. 4. Septic shock: Resolved. 5. Possible cerebral salt wasting: Continue Florinef. Decrease sodium chloride tablets. 6. Mild acute protein calorie malnutrition: Continue tube feedings. Monitor labs. 7. Pneumonia: Completed antibiotics. 8. C. difficile colitis: Continue Flagyl. Repeat C. difficile studies are negative. 9. Hyperglycemia of critical illness: Improved. 10. DVT prophylaxis: SCDs, YOUSIF hose, Lovenox. 11. GI prophylaxis: Protonix. 12. Hydrocephalus: Plan for shunt placement tomorrow. Repeat head CT unchanged. 13. Hypokalemia: Still low. Supplement potassium per electrolyte protocol. Problem Qualifiers (1) Hypertension: Qualified Code: I10 - Essential hypertension Enrique Mclain MD November 23, 2016 11:54
--- NOTE | 2016-11-23 16:04 | HHI.PR ---
Subjective Remarks 51 YOWM with TBI,RF,Trach On trach collar Mod amount of trach secretions More awake, strong cough No Fever Objective Vital Signs Vital Signs Date Time Temp Pulse Resp B/P Pulse Ox O2 Delivery O2 Flow Rate FiO2 11/23/16 14:00 93 11/23/16 12:00 108 11/23/16 12:00 98.1 108 22 135/83 97 11/23/16 10:00 100 11/23/16 08:00 96 11/23/16 08:00 98.5 96 25 128/83 96 11/23/16 08:00 96 Trach Collar 28 Humidified 11/23/16 07:45 98 Trach Collar 5.00 28 11/23/16 06:00 73 11/23/16 04:00 98.2 90 18 135/84 97 11/23/16 04:00 90 11/23/16 02:00 98 11/23/16 00:00 98.4 93 22 130/90 95 11/23/16 00:00 93 11/22/16 22:00 99 11/22/16 20:00 99.1 99 22 138/81 95 11/22/16 20:00 96 11/22/16 19:23 100 Trach Collar 28 11/22/16 19:00 97 Trach Collar 28 Humidified 11/22/16 18:00 93 I/O 11/22/16 11/22/16 11/22/16 11/23/16 11/23/16 11/23/16 07:00 15:00 23:00 07:00 15:00 23:00 Intake Total 491 ml 834 ml 675 ml 507 ml 960 ml Output Total 150 ml 450 ml 550 ml 500 ml Balance 491 ml 684 ml 225 ml -43 ml 460 ml IV Total 0 ml 100 ml 100 ml 378 ml Tube Feeding 391 ml 434 ml 385 ml 447 ml 382 ml Tube Irrigant 100 ml Other 300 ml 190 ml 60 ml 200 ml Output Urine Total 150 ml 450 ml 550 ml 500 ml Tube Feeding Residual Discard 0 ml 0 ml 0 ml # Voids 2 3 # Bowel Movements 0 0 1 0 1 Result Diagram: 11/23/1631311/23/16313 Objective Remarks GENERAL: WBWN male, on Trach collar SKIN: Warm and dry. HEAD: Normocephalic. EYES: No scleral icterus. No injection or drainage. NECK: Supple, trachea midline. No JVD or lymphadenopathy. Trach collar CARDIOVASCULAR: Regular rate and rhythm without murmurs, gallops, or rubs. RESPIRATORY: Breath sounds equal bilaterally. No accessory muscle use. GASTROINTESTINAL: Abdomen soft, non-tender, nondistended. PEG tube in place MUSCULOSKELETAL: No cyanosis, or edema. BACK: Nontender without obvious deformity. No CVA tenderness. A/P Assessment and Plan RF, s/p Trach Intracranial bleed Hydrocephalous HTN C.diff positive PLAN: Cont Flagyl Trach collar Plans for Shunt in AM Secretions decreased Renard Virgen MD November 23, 2016 16:04
[2016-11-23] MEDS: ENOXAPARIN SODIUM 40 MG/0.4 ML SYRINGE SQ SCH (21:15)
[2016-11-23] MEDS: LOPERAMIDE HCL 2 MG CAP PO PRN (21:16)
[2016-11-24] VITALS (13 sets, daily range): BP systolic 129–150; BP diastolic 74–93; PULSE 84–104; RESP 17–42; TEMP 97.5–98.6; O2SAT 94–99
[2016-11-24] MEDS: CHLORHEXIDINE GLUCONATE 2 % 1 PACK (2 CLOTHS) TOP SCH (03:11)
[2016-11-24] MEDS: ENOXAPARIN SODIUM 40 MG/0.4 ML SYRINGE SQ SCH (03:38)
[2016-11-24] MEDS: LABETALOL HCL 100 MG TAB PO SCH ×3 (04:16→20:46)
[2016-11-24 04:47] LABS: BICARBONATE 31.2 MEQ/L (21.0-32.0); CALCIUM 8.4 MG/DL (8.5-10.1); CREATININE 0.79 MG/DL (0.60-1.30)
[2016-11-24] MEDS ORDERED: THROMBIN (TOPICAL) 5,000 UNIT VIAL ONE (07:55)
[2016-11-24] MEDS ORDERED: GENTAMICIN SULFATE 80 MG/2 ML VIAL ONE (07:56)
[2016-11-24] MEDS ORDERED: LIDOCAINE 1%/EPINEPHrine 1:100,000 SOLN 50 ML VIAL ONE (07:56)
[2016-11-24] MEDS ORDERED: GELFOAM SIZE 100 ONE (07:56)
--- NOTE | 2016-11-24 08:58 | HHI.NSPN ---
(Meir Sánchez WATER HAULER) Note Status Status: Progress Note (Meir Sánchez) Interval History Interval History 51 year old male presents with being brought in as a trauma alert due to a head injury with altered mental status and a diminished GCS. The patient was in the bathroom and fell and hit his head. This was an unwitnessed fall. According to the patient's the patient had been unresponsive for approximately 15 minutes by the time ambulance services arrived. When they arrived the patient was noted to be a GCS of 14, however his mentation would wax and wane and go down as low as 3 again. On arrival to the emergency department he felt extremely nauseated. The CT of the head revealed diffuse subarachnoid bleed. Emergently intubated in the trauma bay. Possible seizure activity. Intubated in the emergency room. 10/05/16: Endovascular coiling 10/07/16 rinse intubated and sedated. Ventriculostomy in place 10/09/16: Remains intubated and sedated. Increased agitation with attempts at sedation vacation 10/17/16: Pupils 2 mm. Intubated and sedated. Somewhat more responsive with decreased sedation. External ventricular drain and closed to reservoir again today. 10/19/16: TCD with vasospasm, to angio with 10 mg Verapamil IA given. 10/20/16: Patient with fevers up to 102.8 per Nursing and cultures sent, Nursing reports CSF milky & with sediment. TCD being repeated this afternoon due to vast difference from that done this morning and yesterday. Disaster Or Damage Control Specialist increased SBP parameters to 180-200 mm Hg to help overcome vasospasms. No increase in ICP. 10/21/16: Still with elevated temp but not as high. TCD yesterday demonstrated resolution of vasospasms but today it demonstrated a right SRI vasospasm. Patient with facial grimacing and attempted eye opening. CSF specimen sent yesterday w/o any organisms or WBCs seen on Gram stain. 10/23/16: Trach done 10/24/16: PEG done at bedside prior to being seen. Nursing reports prior to sedation he was following commands to all extremities although right was weaker. Mild vasospasm per TCD. 10/25/16: No evident distress. Noted to move BLE & slight LUE spontaneously. Did open eyes partially after having been stimulated. TCD being done. 10/26/16: No evident distress, attempted eye opening to verbal & attempted to follow some commands, some spontaneous movements noted BLE & LUE. TCD being done. 10/27/16: No apparent distress, no eye opening, follows some commands. 10/28/16: Remains tracheed, NAD, follows some commands, spontaneous movement of BLE & LUE noted. 10/29/16: Remains stable follows some commands, spontaneous movement of BLE & LUE noted 10/31/16: Patient trached and on T-piece when seen, follows commands, spontaneous movement of extremities noted. Did attempt to mouth words. 11/01/16: Patient doing well, on T-piece, follows commands, moving both feet spontaneously. Nursing reports he is intermittently following command and mouthing words. 11/02/16: Patient continues to do well, on T-piece, follows some commands, he does turn his head in direction of practitioner's voice. 11/03/16: Patient doing quite well today, on T-piece, follows commands, opens eyes briefly and holds up two fingers on left hand to command and tries with right. 11/04/16: Patient initially seen this morning with Therapy at the bedside. He had his eyes open at the time and would do a hand squeeze to command. When seen later he would not open his eyes but did follow commands and was able to show two fingers with each hand to command. Nursing reported that the patient mouthed that the RUE was not working. 6: His mental status is improving, he follows commands 4. He is awaiting transfer to longterm care facility. No acute events overnight. 7: slightly restless today, has transfer order out of unit pending. no changes to neuro checks overnight. 58: Patient doing well, follows some simple commands but not consistently 5: Patient remains stable, eyes are open, he nods yes when asked if he has a headache. CTA brain yesterday demonstrates enlarging ventricles with periventricular hypodensity characteristic of developing hydrocephalus. 5: Patient stable, does not open eyes to verbal stimuli but does follow commands. 11/10: Patient with stable neurological function. His eyes were initially open when seen but he kept them closed when examined although he did follow other commands. Infectious Disease saw the patient yesterday for a questionable drug- induced rash and signed off. Later in the day the patient had a positive PCR for Clostridium difficile and treatment was started. 11/11: Patient continues to be stable neurologically. He is seen spontaneously moving the right leg. 11/12/16: Pt opens eyes. Nods head to questions. Denies headache. States he is cold. 11/13/16: Pt Not opening eyes. Not following commands. Mouths ouch to pain. Spontaneously moves LEs intermittently. 11/14: Awake & alert, tracks with his eyes. Moving all extremities spontaneously and follows commands. 11/15: Awake & alert, moving all extremities spontaneously, follows commands. Pulse ox down to 85% due to T-piece being disconnected from trach when seen. Connected T-piece to trach and pulse ox up to 95%. 11/16: Patient awake & alert, watching TV, moving all extremities. 11/17: Patient awake & alert, fidgeting but no distress. 11/18: Patient seen this morning with eyes open prior to being seen but kept them shut when seen. He did follow commands and nodded appropriately to the ROS questions and mouthed words. 11/19: Patient wake this morning and fidgeting in bed. Nursing reports that during the night the patient was very agitated and pulling at his lines and remains restrained due to this. He receives Seroquel at 0900 and 1200 daily. He does follow commands. 11/20: Patient asleep but opens eyes to verbal stimuli. He does follow commands although he is fidgeting in bed and attempting to get out by himself. 11/21: Patient awake & alert in cardiac chair. He does verbalise and denies any complaint. He is following commands. Nursing reported that he stood 3 times this morning with Therapy. He went for a repeat CT brain this morning which demonstrated stable ventriculomegaly. 11/22: The patient is asleep in bed. He does not open his eyes but does attempt to verbalise when seen. He is following commands. 11/23: The patient is awake & alert. He follows commands and attempts to verbalise. 11/24: The patient is awake. He is restless in the bed at times. He does follow commands and is able to vocalise some. (Meir Sánchez) Labs, Micro, & Vital Signs Results Allergies Coded Allergies Type Severity Reaction Last Updated Verified Penicillin Allergy Unknown 10/06/16 Yes Sulfa Allergy Unknown 10/06/16 Yes //// 06:00 18:00 06:00 18:00 06:00 18:00 Intake Total 553 ml 1425 ml 1082 ml 1230 ml 498 ml Output Total 150.0 ml 1000 ml 500 ml 1150 ml Balance 553 ml 1275.0 ml 82 ml 730 ml -652 ml IV Total 125 ml 100 ml 100 ml 598 ml 88 ml Tube Feeding 328 ml 825 ml 832 ml 382 ml 320 ml Tube Irrigant 100 ml 100 ml Other 400 ml 150 ml 250 ml 90 ml Output Urine Total 150 ml 1000 ml 500 ml 1150 ml Tube Feeding Residual Discard 0 ml 0 ml 0 ml # Voids 3 5 # Bowel Movements 1 0 1 1 1 Laboratory Tests Test 11/22/16 11/23/16 11/24/16 06:08 03:14 04:20 Sodium Level 147 MEQ/L 147 MEQ/L 144 MEQ/L Potassium Level 3.3 MEQ/L 3.2 MEQ/L 3.6 MEQ/L Chloride Level 108 MEQ/L 109 MEQ/L 107 MEQ/L Carbon Dioxide Level 31.4 MEQ/L 30.8 MEQ/L 31.2 MEQ/L Anion Gap 8 MEQ/L 7 MEQ/L 6 MEQ/L Blood Urea Nitrogen 11 MG/DL 12 MG/DL 10 MG/DL Creatinine 0.84 MG/DL 0.84 MG/DL 0.79 MG/DL Estimat Glomerular Filtration 96 ML/MIN 96 ML/MIN 103 ML/MIN Rate Random Glucose 112 MG/DL 109 MG/DL 94 MG/DL Calcium Level 8.3 MG/DL 8.4 MG/DL 8.4 MG/DL White Blood Count 7.1 TH/MM3 Red Blood Count 3.43 MIL/MM3 Hemoglobin 9.8 GM/DL Hematocrit 29.9 % Mean Corpuscular Volume 87.3 FL Mean Corpuscular Hemoglobin 28.5 PG Mean Corpuscular Hemoglobin 32.6 % Concent Red Cell Distribution Width 15.1 % Platelet Count 234 TH/MM3 Mean Platelet Volume 9.2 FL Neutrophils (%) (Auto) 66.1 % Lymphocytes (%) (Auto) 18.7 % Monocytes (%) (Auto) 9.5 % Eosinophils (%) (Auto) 5.1 % Basophils (%) (Auto) 0.6 % Neutrophils # (Auto) 4.7 TH/MM3 Lymphocytes # (Auto) 1.3 TH/MM3 Monocytes # (Auto) 0.7 TH/MM3 Eosinophils # (Auto) 0.4 TH/MM3 Basophils # (Auto) 0.0 TH/MM3 CBC Comment DIFF FINAL Differential Comment Constitutional Vital Signs Date Time Temp Pulse Resp B/P Pulse Ox O2 Delivery O2 Flow Rate FiO2 11/24/16 07:16 95 Trach Collar 28 11/24/16 06:00 92 11/24/16 04:00 98.5 104 29 130/84 97 11/24/16 04:00 104 11/24/16 02:00 90 11/24/16 00:00 98 11/24/16 00:00 98.5 98 42 143/74 95 11/23/16 22:00 98 11/23/16 20:37 97 Trach Collar 28 11/23/16 20:00 98 11/23/16 20:00 98.2 98 42 178/86 95 11/23/16 19:00 Trach Collar 28 Humidified 11/23/16 18:00 98 11/23/16 16:00 86 11/23/16 16:00 98.7 86 17 114/74 95 11/23/16 14:00 93 11/23/16 12:00 108 11/23/16 12:00 98.1 108 22 135/83 97 11/23/16 10:00 100 11/24/16 07:00 Intake Total 1728 ml Output Total 1650 ml Balance 78 ml (Meir Sánchez) Review of Systems/Exam ROS Unable to obtain a ROS due to patient being trached and limited ability to verbalise. He does shake his head "no" to any headache or dizziness but does not respond to any other questions. Exam Resp: CTAB w/o W/R/R, equal excursion, non-laboured, trached & on trach collar. CV: S1S2 w/RRR w/o M/G/R, radial & pedal pulses 2+ bilaterally, cap refill < 2 sec. Monitor is sinus rhythm w/o any ectopy noted GI: Abdomen soft, nontender, positive bowel sounds, PEG tube clamped. : Condom cath to BSD. Neuro: Awake & alert Does mouth words and limited vocalisation Follows simple commands Moving all extremities Good muscle strength (Meir Sánchez) Medications Current Medications Current Medications Medications (Trade) Dose Ordered Sig/Nava Route Start Time Stop Time Status Last Admin (Tylenol) 650 mg Q6H PRN PO 10/05/16 02:45 11/19/16 20:43 (Protonix Inj) 40 mg DAILY IV 10/05/16 09:00 11/23/16 07:26 (Tears Naturale Opth Soln) 1 drop TID EACH EYE 10/05/16 09:00 11/23/16 16:05 (Zofran Inj) 4 mg Q6H PRN IV 10/05/16 02:45 11/06/16 20:58 Miscellaneous Information 1 Q361D XX 10/05/16 02:45 10/05/16 02:45 (Chlorhexidine 2% Cloth) Taper DAILY@04 TOP 10/05/16 04:00 10/01/17 03:59 11/16/16 03:28 Chlorhexidine Gluconate 3 pack 3 pack UNSCH PRN TOP 10/05/16 02:45 (Keppra Inj/NS Inj) 105 ml @ 420 mls/hr Q12HR IV 10/05/16 09:00 11/23/16 21:16 (Pravachol) 40 mg DAILY PO 10/05/16 09:00 11/23/16 07:27 (NS Flush) See Protocol DAILY IV FLUSH 10/07/16 09:00 11/23/16 07:26 (NS Flush) See Protocol UNSCH PRN IV FLUSH 10/06/16 12:00 Sodium Chloride UNSCH PRN IV FLUSH 10/06/16 12:00 11/21/16 19:37 (Levophed Inj/NS 250 ml Inj) 254 ml @ 0 mls/hr TITRATE IV 10/06/16 18:00 10/28/16 20:14 (Florinef) 0.2 mg Q12HR PO 10/22/16 21:00 11/23/16 21:16 Enoxaparin Sodium 40 mg 40 mg Q24H SQ 10/23/16 21:00 11/22/16 21:19 Potassium Phosphate 30 mmol/ Sodium Chloride 260 ml @ 42 mls/hr UNSCH PRN IV 10/24/16 15:15 Potassium Chloride 100 ml @ 50 mls/hr Q2H PRN IV 11/03/16 05:15 11/20/16 07:31 (KCl 20 Meq Premix Inj) 100 ml @ 50 mls/hr Q2H PRN IV 11/03/16 05:15 11/23/16 16:05 Potassium Bicarb/ Potassium Chloride 50 meq 50 meq UNSCH PRN PO 11/03/16 05:15 11/22/16 07:07 Potassium Chloride 100 ml @ 25 mls/hr UNSCH PRN IV 11/03/16 05:15 11/19/16 01:44 Potassium Chloride 100 ml @ 50 mls/hr Q2H PRN IV 11/03/16 05:15 11/18/16 18:44 (Magnesium Sulfate Inj/NS Inj) 100 ml @ 50 mls/hr UNSCH PRN IV 11/03/16 05:15 Magnesium Oxide 800 mg 800 mg UNSCH PRN PO 11/03/16 05:15 (Magnesium Sulfate Inj/NS Inj) 100 ml @ 50 mls/hr UNSCH PRN IV 11/03/16 05:15 Potassium Phosphate 2000 mg 2,000 mg Q4H PRN PO 11/03/16 05:15 (Sodium Phosphate Inj/NS 250 ml Inj) 250 ml @ 42 mls/hr UNSCH PRN IV 11/03/16 05:15 (K-Phos) 2,000 mg UNSCH PRN PO/TUBE 11/03/16 05:15 (Trandate) 100 mg Q8H PO 11/03/16 20:00 11/24/16 04:16 (Apresoline) 50 mg Q12HR PO 11/03/16 19:00 11/23/16 21:17 (Norvasc) 5 mg DAILY PO 11/04/16 09:00 11/23/16 07:27 (Mycostatin Powder) 1 applic TID TOPICAL 11/06/16 09:00 11/23/16 16:05 (Lactinex) 1 tab Q12HR PO 11/06/16 21:00 11/23/16 21:16 (SEROquel) 25 mg BID@09,12 PO 11/07/16 09:00 11/23/16 12:48 (Colace Liq) 100 mg Q12H PRN G-TUBE 11/06/16 17:00 (Imodium) 2 mg UNSCH PRN PO 11/09/16 09:45 11/23/16 21:16 (Lomotil Tab) 1 tab Q6H PRN PO 11/09/16 09:45 (Flagyl) 500 mg Q8H PO 11/09/16 16:00 11/23/16 23:33 (Benadryl Inj) 50 mg Q6H PRN IV 11/16/16 23:00 11/23/16 21:16 (SEROquel) 25 mg HS PO 11/20/16 21:00 11/23/16 21:16 (KCl) 20 meq BID PO 11/23/16 09:00 11/23/16 21:16 (Sodium Chloride) 2 gm DAILY PO 11/24/16 09:00 (Meir Sánchez) Medical Decision Making MDM Remarks 1. Neurological function stable 2. 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 Left basal ganglia region CVA primarily per CT 4. CSF cultures w/o any growth 5. Max temp 98.7 6. Enterobacter cloacae in sputum from 7. Hypokalemia, resolved 8. Hypernatremia, resolved 9. Hydrocephalus 10. Clostridium difficile infection, negative stool x3 after tx CT brain without change in ventriculomegaly, no haemorrhage or mass effect (Meir Sánchez) Plan Plan Remarks Plan is to take patient to OR for a DISTRICT SUPERINTENDENT shunt this afternoon Cognitive/speech therapy eval & tx Activity OOB to cardiac chair Continue PT & OT Continue abx per Surgical Disaster Or Damage Control Specialist Continue Keppra for probable seizure activity Okay for Lovenox from NSGY standpoint Ulcer prophylaxis Keep SBP between 120-160 mm Hg (Meir Sánchez) Attending Statement I have personally seen and examined the patient on 11/24/16. Pertinent documentation and study results have been reviewed by the undersigned. I have personally developed the treatment plan and performed medical decision making. Agree with findings, exam, and treatment plan as noted above. Plan ventriculoperitoneal shunt placement today. (Gino Mace MD) Meir Sánchez November 24, 2016 08:58 Gino Mace MD November 24, 2016 20:33
[2016-11-24] MEDS: ARTIFICIAL TEARS OPTH SOLN 15 ML BTL EACH EYE SCH ×3 (09:00→18:00)
[2016-11-24] MEDS: PRAVASTATIN SOD 40 MG TAB PO SCH (09:00)
[2016-11-24] MEDS: NYSTATIN 100,000 U/GM PWD 15 GM BTL TOPICAL SCH ×3 (09:00→18:00)
[2016-11-24] MEDS: POTASSIUM CHLORIDE 20 MEQ CONTROLLED RELEASE TAB PO SCH ×2 (09:00→20:18)
[2016-11-24] MEDS: diphenhydrAMINE HCL 50 MG/ML VIAL IV PRN (09:25)
[2016-11-24] MEDS: hydrALAZINE HCL 50 MG TAB PO SCH ×2 (09:26→20:18)
[2016-11-24] MEDS: FLUDROCORTISONE ACETATE 0.1 MG TAB PO SCH ×2 (09:26→20:19)
[2016-11-24] MEDS: PANTOPRAZOLE SODIUM 40 MG VIAL IV SCH (09:26)
[2016-11-24] MEDS: QUEtiapine FUMARATE 25 MG TAB PO SCH ×3 (09:27→20:19)
[2016-11-24] MEDS: amLODIPine BESYLATE 5 MG TAB PO SCH (09:27)
[2016-11-24] MEDS: levETIRAcetam INJ 500 MG in SODIUM CHLORIDE 0.9% INJ 100 ML IV SCH ×2 (09:27→20:41)
[2016-11-24] MEDS: metroNIDAZOLE 500 MG TAB PO SCH ×2 (09:27→16:00)
[2016-11-24] MEDS: LACTOBACILLUS ACIDOPHILUS TAB PO SCH ×2 (09:27→20:18)
[2016-11-24] MEDS: SODIUM CHLORIDE 1 GRAM TAB PO SCH (09:27)
[2016-11-24] MEDS: SODIUM CHLORIDE 0.9% FLUSH 10 ML FLUSH IV FLUSH SCH (09:28)
--- NOTE | 2016-11-24 13:18 | HHI.PR ---
Subjective Remarks Follow up encephalopathy. No changes per nursing. He has remained agitated and is still requiring restraints. Going for shunt placement this afternoon. Objective Vitals Vital Signs Date Time Temp Pulse Resp B/P Pulse Ox O2 Delivery O2 Flow Rate FiO2 11/24/16 12:00 99 11/24/16 10:00 88 11/24/16 08:00 95 11/24/16 08:00 98.6 84 17 129/93 94 11/24/16 07:16 95 Trach Collar 28 11/24/16 07:00 98 Trach Collar 28 Humidified 11/24/16 06:00 92 11/24/16 04:00 98.5 104 29 130/84 97 11/24/16 04:00 104 11/24/16 02:00 90 11/24/16 00:00 98 11/24/16 00:00 98.5 98 42 143/74 95 11/23/16 22:00 98 11/23/16 20:37 97 Trach Collar 28 11/23/16 20:00 98 11/23/16 20:00 98.2 98 42 178/86 95 11/23/16 19:00 Trach Collar 28 Humidified 11/23/16 18:00 98 11/23/16 16:00 86 11/23/16 16:00 98.7 86 17 114/74 95 11/23/16 14:00 93 I/O 11/23/16 11/23/16 11/23/16 11/24/16 11/24/16 11/24/16 07:00 15:00 23:00 07:00 15:00 23:00 Intake Total 507 ml 960 ml 738 ml 30 ml Output Total 550 ml 500 ml 775 ml 375 ml Balance -43 ml 460 ml -37 ml -345 ml IV Total 378 ml 308 ml Tube Feeding 447 ml 382 ml 320 ml Other 60 ml 200 ml 110 ml 30 ml Output Urine Total 550 ml 500 ml 775 ml 375 ml Tube Feeding Residual Discard 0 ml # Bowel Movements 0 1 1 Result Diagram: 11/23/16 0314 11/24/16 0420 Imaging Last Impressions Head CT 11/21/16 0500 Signed Impressions: Service Date/Time: Monday, November 21, 2016 04:29 - CONCLUSION: No change in ventriculomegaly without any hemorrhage or mass effect. Rosemarie Sagastume MD Chest X-Ray 11/01/16 0600 Signed Impressions: Service Date/Time: Tuesday, November 01, 2016 04:37 - CONCLUSION: 1. No acute cardiopulmonary disease. Trevin De León MD Transcranial Doppler Study Complete 10/26/16 0700 Signed Impressions: Service Date/Time: Wednesday, October 26, 2016 08:20 - CONCLUSION: Minimal interval improvement with no evidence for vasospasm. Christian Song MD FACR Neck CTA 10/19/16 0000 Signed Impressions: Service Date/Time: Wednesday, October 19, 2016 14:19 - CONCLUSION: Negative for dissection or significant stenosis. Christian Song MD FACR Head CTA 10/19/16 0000 Signed Impressions: Service Date/Time: Wednesday, October 19, 2016 14:19 - CONCLUSION: 1. Interval development of significant vasospasm in the left MCA and SRI territories. 2. Mild vasospasm in the basilar artery.. Gume Mckeon MD Cerebral Arteriogram 10/19/16 0000 Signed Impressions: Service Date/Time: Wednesday, October 19, 2016 16:06 - CONCLUSION: 1. Vasospasm in the left MCA and SRI territories 2. Spasmolytic infusion, left internal carotid artery as above.. 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 Gume Mckeon MD Pelvis X-Ray 10/05/16 011 Signed Impressions: Service Date/Time: Wednesday, October 05, 2016 01:22 - CONCLUSION: Unremarkable examination of the pelvis. Ruben Acuña Jr., MD Chest CT 10/05/16109 Signed Impressions: Service Date/Time: Wednesday, October 05, 2016 01:46 - CONCLUSION: 1. No acute intrathoracic abnormality. 2. Bibasilar atelectasis. 3. Cardiomegaly. 4. Prior granulomatous disease. Ruben Acuña Jr., MD Cervical Spine CT 10/05/16109 Signed Impressions: Service Date/Time: Wednesday, October 05, 2016 01:40 - CONCLUSION: 1. No fracture or dislocation. 2. Multilevel degenerative changes. Ruben Acuña Jr., MD Abdomen/Pelvis CT 10/05/16 0110 Signed Impressions: Service Date/Time: Wednesday, October 05, 2016 01:46 - CONCLUSION: 1. No acute trauma. 2. Rounded area of decreased density involving the pancreatic head. I cannot completely exclude pancreatic head mass. At some point MRI of the pancreas is suggested to further evaluate. 3. Focal area of poor enhancement involving the left kidney. This may relate to an area of parenchymal scarring. I cannot completely exclude a mass. This can be further assessed with MRI as well. Ruben Acuña Jr., MD Objective Remarks General: No acute distress. In soft wrist and mitten restraints. Trach collar. Heart: Regular rate and rhythm. No murmur. Lungs: Clear to auscultation bilaterally. No wheezes, rales, or rhonchi. Breathing is nonlabored. Abdomen: Soft, nontender, nondistended. Positive bowel sounds. Extremities: No lower extremity edema. SCDs. Psych: Sleeping, but awakens easily. Procedures 10/05/16 right frontal twist drill for ventriculostomy placement 10/20/16 arterial line placement 10/23/16 bedside percutaneous tracheostomy under direct bronchoscopic visualization 10/24/16 PEG tube placement at bedside Urinary Catheter: No Vascular Central Line Catheter: No A/P Problem List: (1) 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 ICD Code: I60.8 Status: Acute (2) Hypertension ICD Code: I10 Status: Chronic (3) Major neurocognitive disorder due to vascular disease, without behavioral disturbance, severe ICD Code: F01.50 Status: Acute (4) Septic shock ICD Code: A41.9 Status: Resolved (5) Hydrocephalus ICD Code: G91.9 Status: Acute (6) Intracranial hemorrhage ICD Code: I62.9 Status: Acute (7) Major neurocognitive disorder as late effect of traumatic brain injury with behavioral disturbance ICD Code: S06.9X9S Status: Acute (8) Encephalopathy ICD Code: G93.40 Status: Acute (9) Sepsis ICD Code: A41.9 Status: Resolved (10) Pneumonia ICD Code: J18.9 Status: Acute (11) Protein-calorie malnutrition, mild ICD Code: E44.1 Status: Acute (12) Acute respiratory failure with hypoxia and hypercarbia ICD Code: J96.01 Status: Acute Assessment and Plan 1. Aneurysmal subarachnoid hemorrhage, occurred on 10/05/16: Appreciate neurosurgery recommendations. Okay for Lovenox per neurosurgery. Continue Keppra for seizure prophylaxis. 2. Encephalopathy: Secondary to above. Mental status is improving slowly. 3. Acute hypoxic, hypercarbic respiratory failure: Tracheostomy 10/23/16. Continue supplemental oxygen. DuoNeb as needed, scheduled. Trach management per pulmonology. 4. Septic shock: Resolved. 5. Possible cerebral salt wasting: Continue Florinef, sodium chloride tablets. 6. Mild acute protein calorie malnutrition: Continue tube feedings. Monitor labs. 7. Pneumonia: Completed antibiotics. 8. C. difficile colitis: Continue Flagyl. Repeat C. difficile studies are negative. 9. Hyperglycemia of critical illness: Improved. 10. DVT prophylaxis: SCDs, YOUSIF azeeme, Lovenox. 11. GI prophylaxis: Protonix. 12. Hydrocephalus: Repeat head CT unchanged. EXTRACORPOREAL CIRCULATION SPECIALIST shunt placement today. 13. Hypokalemia: Improved. Problem Qualifiers (1) Hypertension: Qualified Code: I10 - Essential hypertension Enrique Mclain MD November 24, 2016 13:18
[2016-11-24] MEDS ORDERED: PHENYLEPH/NS 1000 MCG/10 ML SYR IV ONE (14:31)
[2016-11-24] MEDS ORDERED: ePHEDrine/NS 25 MG/5 ML SYR IV ONE (14:31)
[2016-11-24] MEDS ORDERED: PROPOFOL 200 MG/20 ML AMP IV ONE (14:31)
[2016-11-24] MEDS ORDERED: NEOSTIGMINE 3 MG/3 ML SYR IV ONE (14:31)
[2016-11-24] MEDS ORDERED: ONDANSETRON HCL 4 MG/2 ML VIAL IV PUSH ONE (14:31)
[2016-11-24] MEDS ORDERED: VASOPRESSIN 20 UNITS/ML VIAL (IVTITR) IV ONE (14:31)
[2016-11-24] MEDS ORDERED: SODIUM CHLOR 0.9% 250 ML INJ 250 ML ONE (14:41)
[2016-11-24] MEDS ORDERED: VANCOMYCIN HCL 1000 MG VIAL ONE (14:41)
[2016-11-24] MEDS ORDERED: fentaNYL CITRATE 250 MCG/5 ML AMP ONE (17:28)
[2016-11-24] MEDS ORDERED: 1/2 NS + KCL 20 MEQ INJ 1,000 ML IV SCH (17:45)
[2016-11-24] MEDS ORDERED: DO NOT ADM ANY ANTICOAGULANT DRUGS PRN (18:15)
--- NOTE | 2016-11-24 19:04 | HHI.PR ---
Subjective Remarks 51 YOWM with TBI,RF,Trach On trach collar Mod amount of trach secretions More awake, strong cough No Fever Has rash, hives on lower ext Objective Vital Signs Vital Signs Date Time Temp Pulse Resp B/P Pulse Ox O2 Delivery O2 Flow Rate FiO2 11/24/16 17:45 85 14 113/67 95 Venturi Mask 35 Trach Collar 11/24/16 17:30 83 16 109/66 95 Venturi Mask 35 Trach Collar 11/24/16 17:15 97.5 85 16 116/67 97 Venturi Mask 35 Trach Collar 11/24/16 14:00 88 11/24/16 12:00 98.3 102 22 140/81 95 11/24/16 12:00 99 11/24/16 10:00 88 11/24/16 08:00 95 11/24/16 08:00 98.6 84 17 129/93 94 11/24/16 07:16 95 Trach Collar 28 11/24/16 07:00 98 Trach Collar 28 Humidified 11/24/16 06:00 92 11/24/16 04:00 98.5 104 29 130/84 97 11/24/16 04:00 104 11/24/16 02:00 90 11/24/16 00:00 98 11/24/16 00:00 98.5 98 42 143/74 95 11/23/16 22:00 98 11/23/16 20:37 97 Trach Collar 28 11/23/16 20:00 98 11/23/16 20:00 98.2 98 42 178/86 95 I/O 11/23/16 11/23/16 11/23/16 11/24/16 11/24/16 11/24/16 07:00 15:00 23:00 07:00 15:00 23:00 Intake Total 507 ml 960 ml 738 ml 30 ml 160 ml 1200 ml Output Total 550 ml 500 ml 775 ml 375 ml 850 ml 50 ml Balance -43 ml 460 ml -37 ml -345 ml -690 ml 1150 ml IV Total 378 ml 308 ml 100 ml Tube Feeding 447 ml 382 ml 320 ml 0 ml Other 60 ml 200 ml 110 ml 30 ml 60 ml 1200 ml Output Urine Total 550 ml 500 ml 775 ml 375 ml 850 ml Tube Feeding Residual Discard 0 ml Estimated Blood Loss 50 ml # Bowel Movements 0 1 1 0 Result Diagram: 11/23/16 0314 11/24/16 0420 Objective Remarks GENERAL: WBWN male, on Trach collar SKIN: Warm and dry. HEAD: Normocephalic. EYES: No scleral icterus. No injection or drainage. NECK: Supple, trachea midline. No JVD or lymphadenopathy. Trach collar CARDIOVASCULAR: Regular rate and rhythm without murmurs, gallops, or rubs. RESPIRATORY: Breath sounds equal bilaterally. No accessory muscle use. GASTROINTESTINAL: Abdomen soft, non-tender, nondistended. PEG tube in place MUSCULOSKELETAL: No cyanosis, or edema. BACK: Nontender without obvious deformity. No CVA tenderness. A/P Assessment and Plan RF, s/p Trach Intracranial bleed Hydrocephalous HTN C.diff positive PLAN: Cont Flagyl Trach collar Secretions decreased Benadryl prn for skin rash. Renard Virgen MD November 24, 2016 19:04
[2016-11-24] MEDS: ACETAMINOPHEN 325 MG TAB PO PRN (20:17)
--- NOTE | 2016-11-24 22:48 | RADRPT ---
EXAM DATE/TIME: 11/24/2016 22:29 [facility] COMPARISON: ANGIOGRAM,SELECT ADD VESSEL,RT, October 05, 2016, 16:17. CT BRAIN W/O CONTRAST, November 21, 2016, 4:29. INDICATIONS : Post op, LEAD RETAIL SALES ASSOCIATE shunt. RADIATION DOSE: 41.57 CTDIvol (mGy) MEDICAL HISTORY : Pancreatitis. Hypertension. SURGICAL HISTORY : LEAD RETAIL SALES ASSOCIATE shunt. ENCOUNTER: Subsequent ACUITY: 1 month PAIN SCALE: Non-responsive LOCATION: cranial TECHNIQUE: Multiple contiguous axial images were obtained of the head. Using automated exposure control and adj ustment of the mA and/or kV according to patient size, radiation dose was kept as low as reasonably a chievable to obtain optimal diagnostic quality images. FINDINGS: Ventricular shunt placed in the interim via a right frontal approach. Tip slightly crosses the midlin e near the foramen of Monro, series 2 image 14. Ventricles are smaller than on the nd, now essentia lly normal size. Tiny subdural pneumocephaly near the catheter track. No intracranial hemorrhage or hematoma. No mass, mass effect or midline shift. No evidence of an acute ischemic event. 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 CONCLUSION: Patient is now shunted. Normal ventricular size. No bleed or other acute complication. Tim Hammonds MD on November 24, 2016 at 22:43 Board Certified Radiologist. This report was verified electronically.
--- NOTE | 2016-11-24 22:48 | RADRPT ---
EXAM DATE/TIME: 11/24/2016 22:29 [facility] COMPARISON: ANGIOGRAM,SELECT ADD VESSEL,RT, October 05, 2016, 16:17. CT BRAIN W/O CONTRAST, November 21, 2016, 4:29. INDICATIONS : Post op, AMBULATORY CARE shunt. RADIATION DOSE: 41.57 CTDIvol (mGy) MEDICAL HISTORY : Pancreatitis. Hypertension. SURGICAL HISTORY : AMBULATORY CARE shunt. ENCOUNTER: Subsequent ACUITY: 1 month PAIN SCALE: Non-responsive LOCATION: cranial TECHNIQUE: Multiple contiguous axial images were obtained of the head. Using automated exposure control and adj ustment of the mA and/or kV according to patient size, radiation dose was kept as low as reasonably a chievable to obtain optimal diagnostic quality images. FINDINGS: Ventricular shunt placed in the interim via a right frontal approach. Tip slightly crosses the midlin e near the foramen of Monro, series 2 image 14. Ventricles are smaller than on the nd, now essentia lly normal size. Tiny subdural pneumocephaly near the catheter track. No intracranial hemorrhage or hematoma. No mass, mass effect or midline shift. No evidence of an acute ischemic event. 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 CONCLUSION: Patient is now shunted. Normal ventricular size. No bleed or other acute complication. Tim Hammonds MD on November 24, 2016 at 22:43 Board Certified Radiologist. This report was verified electronically.
--- NOTE | 2016-11-24 22:48 | RADRPT ---
EXAM DATE/TIME: 11/24/2016 22:29 [facility] COMPARISON: ANGIOGRAM,SELECT ADD VESSEL,RT, October 05, 2016, 16:17. CT BRAIN W/O CONTRAST, November 21, 2016, 4:29. 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 RADIATION DOSE: 41.57 CTDIvol (mGy) MEDICAL HISTORY : Pancreatitis. Hypertension. SURGICAL HISTORY : TANKER DRIVER shunt. ENCOUNTER: Subsequent ACUITY: 1 month PAIN SCALE: Non-responsive LOCATION: cranial TECHNIQUE: Multiple contiguous axial images were obtained of the head. Using automated exposure control and adj ustment of the mA and/or kV according to patient size, radiation dose was kept as low as reasonably a chievable to obtain optimal diagnostic quality images. FINDINGS: Ventricular shunt placed in the interim via a right frontal approach. Tip slightly crosses the midlin e near the foramen of Monro, series 2 image 14. Ventricles are smaller than on the nd, now essentia lly normal size. Tiny subdural pneumocephaly near the catheter track. No intracranial hemorrhage or hematoma. No mass, mass effect or midline shift. No evidence of an acute ischemic event. 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 CONCLUSION: Patient is now shunted. Normal ventricular size. No bleed or other acute complication. Tim Hammonds MD on November 24, 2016 at 22:43 Board Certified Radiologist. This report was verified electronically.
[2016-11-25] VITALS (14 sets, daily range): BP systolic 117–155; BP diastolic 70–89; PULSE 91–116; RESP 20–23; TEMP 97–98.5; O2SAT 94–100
[2016-11-25] MEDS: metroNIDAZOLE 500 MG TAB PO SCH ×3 (00:54→16:10)
[2016-11-25] MEDS: LABETALOL HCL 100 MG TAB PO SCH ×3 (03:33→20:00)
[2016-11-25] MEDS: diphenhydrAMINE HCL 50 MG/ML VIAL IV PRN ×3 (03:37→20:46)
[2016-11-25] MEDS: CHLORHEXIDINE GLUCONATE 2 % 1 PACK (2 CLOTHS) TOP SCH (04:00)
[2016-11-25 05:11] LABS: AUTOMATED NEUTROPHIL # 7.5 TH/MM3 (1.8-7.7); BASOPHIL % 0.3 % (0.0-2.0); EOSINOPHIL # 0.2 TH/MM3 (0-0.4); EOSINOPHIL % 2.2 % (0.0-4.0); HEMATOCRIT 33.1 % (39.0-51.0); HEMOGLOBIN 10.7 GM/DL (13.0-17.0); LYMPH % 11.3 % (9.0-44.0); LYMPHOCYTE # 1.1 TH/MM3 (1.0-4.8); MEAN CELL VOLUME 87.6 FL (80.0-100.0); MEAN CORPUSCULAR HEMOGLOBIN 28.3 PG (27.0-34.0); MEAN CORPUSCULAR HGB CONC 32.3 % (32.0-36.0); MONO % 6.2 % (0.0-8.0); MONOCYTE # 0.6 TH/MM3 (0-0.9); PLATELET COUNT 254 TH/MM3 (150-450); RED BLOOD COUNT 3.78 MIL/MM3 (4.50-5.90); WHITE BLOOD COUNT 9.3 TH/MM3 (4.0-11.0)
[2016-11-25 05:18] LABS: BICARBONATE 29.3 MEQ/L (21.0-32.0); CALCIUM 8.5 MG/DL (8.5-10.1); CREATININE 0.76 MG/DL (0.60-1.30)
[2016-11-25] MEDS: POTASSIUM CHLOR 20 MEQ PREMIX 100 ML IV PRN ×2 (05:49→08:51)
[2016-11-25] MEDS: levETIRAcetam INJ 500 MG in SODIUM CHLORIDE 0.9% INJ 100 ML IV SCH ×2 (08:49→20:47)
[2016-11-25] MEDS: ARTIFICIAL TEARS OPTH SOLN 15 ML BTL EACH EYE SCH ×3 (08:49→17:30)
[2016-11-25] MEDS: LACTOBACILLUS ACIDOPHILUS TAB PO SCH ×2 (08:50→20:46)
[2016-11-25] MEDS: PANTOPRAZOLE SODIUM 40 MG VIAL IV SCH (08:50)
[2016-11-25] MEDS: hydrALAZINE HCL 50 MG TAB PO SCH ×2 (08:50→20:46)
[2016-11-25] MEDS: PRAVASTATIN SOD 40 MG TAB PO SCH (08:50)
[2016-11-25] MEDS: QUEtiapine FUMARATE 25 MG TAB PO SCH ×3 (08:51→20:46)
[2016-11-25] MEDS: amLODIPine BESYLATE 5 MG TAB PO SCH (08:51)
[2016-11-25] MEDS: SODIUM CHLORIDE 0.9% FLUSH 10 ML FLUSH IV FLUSH SCH (08:51)
[2016-11-25] MEDS: SODIUM CHLORIDE 1 GRAM TAB PO SCH (08:51)
[2016-11-25] MEDS: NYSTATIN 100,000 U/GM PWD 15 GM BTL TOPICAL SCH ×3 (08:51→17:30)
[2016-11-25] MEDS: FLUDROCORTISONE ACETATE 0.1 MG TAB PO SCH ×2 (08:51→20:46)
[2016-11-25] MEDS: POTASSIUM CHLORIDE 20 MEQ CONTROLLED RELEASE TAB PO SCH (08:51)
--- NOTE | 2016-11-25 09:12 | HHI.NSPN ---
(Meir Sánchez [employer]) Note Status Status: Progress Note (Meir Sánchez) Interval History Interval History 51 year old male presents with being brought in as a trauma alert due to a head injury with altered mental status and a diminished GCS. The patient was in the bathroom and fell and hit his head. This was an unwitnessed fall. According to the patient's the patient had been unresponsive for approximately 15 minutes by the time ambulance services arrived. When they arrived the patient was noted to be a GCS of 14, however his mentation would wax and wane and go down as low as 3 again. On arrival to the emergency department he felt extremely nauseated. The CT of the head revealed diffuse subarachnoid bleed. Emergently intubated in the trauma bay. Possible seizure activity. Intubated in the emergency room. 10/05/16: Endovascular coiling 10/07/16 rinse intubated and sedated. Ventriculostomy in place 10/09/16: Remains intubated and sedated. Increased agitation with attempts at sedation vacation 10/17/16: Pupils 2 mm. Intubated and sedated. Somewhat more responsive with decreased sedation. External ventricular drain and closed to reservoir again today. 10/19/16: TCD with vasospasm, to angio with 10 mg Verapamil IA given. 10/20/16: Patient with fevers up to 102.8 per Nursing and cultures sent, Nursing reports CSF milky & with sediment. TCD being repeated this afternoon due to vast difference from that done this morning and yesterday. Territory Sales Representative increased SBP parameters to 180-200 mm Hg to help overcome vasospasms. No increase in ICP. 10/21/16: Still with elevated temp but not as high. TCD yesterday demonstrated resolution of vasospasms but today it demonstrated a right SRI vasospasm. Patient with facial grimacing and attempted eye opening. CSF specimen sent yesterday w/o any organisms or WBCs seen on Gram stain. 10/23/16: Trach done 10/24/16: PEG done at bedside prior to being seen. Nursing reports prior to sedation he was following commands to all extremities although right was weaker. Mild vasospasm per TCD. 10/25/16: No evident distress. Noted to move BLE & slight LUE spontaneously. Did open eyes partially after having been stimulated. TCD being done. 10/26/16: No evident distress, attempted eye opening to verbal & attempted to follow some commands, some spontaneous movements noted BLE & LUE. TCD being done. 10/27/16: No apparent distress, no eye opening, follows some commands. 10/28/16: Remains tracheed, NAD, follows some commands, spontaneous movement of BLE & LUE noted. 10/29/16: Remains stable follows some commands, spontaneous movement of BLE & LUE noted 10/31/16: Patient trached and on T-piece when seen, follows commands, spontaneous movement of extremities noted. Did attempt to mouth words. 11/01/16: Patient doing well, on T-piece, follows commands, moving both feet spontaneously. Nursing reports he is intermittently following command and mouthing words. 11/02/16: Patient continues to do well, on T-piece, follows some commands, he does turn his head in direction of practitioner's voice. 11/03/16: Patient doing quite well today, on T-piece, follows commands, opens eyes briefly and holds up two fingers on left hand to command and tries with right. 11/04/16: Patient initially seen this morning with Therapy at the bedside. He had his eyes open at the time and would do a hand squeeze to command. When seen later he would not open his eyes but did follow commands and was able to show two fingers with each hand to command. Nursing reported that the patient mouthed that the RUE was not working. 6: His mental status is improving, he follows commands 4. He is awaiting transfer to residential care facility. No acute events overnight. 7: slightly restless today, has transfer order out of unit pending. no changes to neuro checks overnight. 58: Patient doing well, follows some simple commands but not consistently 5: Patient remains stable, eyes are open, he nods yes when asked if he has a headache. CTA brain yesterday demonstrates enlarging ventricles with periventricular hypodensity characteristic of developing hydrocephalus. 5: Patient stable, does not open eyes to verbal stimuli but does follow commands. 11/10: Patient with stable neurological function. His eyes were initially open when seen but he kept them closed when examined although he did follow other commands. Infectious Disease saw the patient yesterday for a questionable drug- induced rash and signed off. Later in the day the patient had a positive PCR for Clostridium difficile and treatment was started. 11/11: Patient continues to be stable neurologically. He is seen spontaneously moving the right leg. 11/12/16: Pt opens eyes. Nods head to questions. Denies headache. States he is cold. 11/13/16: Pt Not opening eyes. Not following commands. Mouths ouch to pain. Spontaneously moves LEs intermittently. 11/14: Awake & alert, tracks with his eyes. Moving all extremities spontaneously and follows commands. 11/15: Awake & alert, moving all extremities spontaneously, follows commands. Pulse ox down to 85% due to T-piece being disconnected from trach when seen. Connected T-piece to trach and pulse ox up to 95%. 11/16: Patient awake & alert, watching TV, moving all extremities. 11/17: Patient awake & alert, fidgeting but no distress. 11/18: Patient seen this morning with eyes open prior to being seen but kept them shut when seen. He did follow commands and nodded appropriately to the ROS questions and mouthed words. 11/19: Patient wake this morning and fidgeting in bed. Nursing reports that during the night the patient was very agitated and pulling at his lines and remains restrained due to this. He receives Seroquel at 0900 and 1200 daily. He does follow commands. 11/20: Patient asleep but opens eyes to verbal stimuli. He does follow commands although he is fidgeting in bed and attempting to get out by himself. 11/21: Patient awake & alert in cardiac chair. He does verbalise and denies any complaint. He is following commands. Nursing reported that he stood 3 times this morning with Therapy. He went for a repeat CT brain this morning which demonstrated stable ventriculomegaly. 11/22: The patient is asleep in bed. He does not open his eyes but does attempt to verbalise when seen. He is following commands. 11/23: The patient is awake & alert. He follows commands and attempts to verbalise. 11/24: The patient is awake. He is restless in the bed at times. He does follow commands and is able to vocalise some. 11/25: The patient is awake & alert, fidgeting in bed as usual. He does follow commands and shakes his head no when asked if he has a headache. He went for a CERTIFIED OPHTHALMIC ASSISTANT shunt yesterday afternoon. (Meir Sánchez) Labs, Micro, & Vital Signs Results Allergies Coded Allergies Type Severity Reaction Last Updated Verified Penicillin Allergy Unknown 10/06/16 Yes Sulfa Allergy Unknown 10/06/16 Yes Recent Impressions Head CT 11/24/16 0000 Signed Impressions: Service Date/Time: October 22:29 - CONCLUSION: Patient is now shunted. Normal ventricular size. No bleed or other acute complication. Tim Hammonds MD //// 06:00 18:00 06:00 18:00 06:00 18:00 Intake Total 1082 ml 1230 ml 498 ml 1360 ml 1046 ml Output Total 1000 ml 500 ml 1150 ml 900 ml 600 ml Balance 82 ml 730 ml -652 ml 460 ml 446 ml IV Total 100 ml 598 ml 88 ml 100 ml 513 ml Tube Feeding 832 ml 382 ml 320 ml 0 ml 433 ml Other 150 ml 250 ml 90 ml 1260 ml 100 ml Output Urine Total 1000 ml 500 ml 1150 ml 850 ml 600 ml Tube Feeding Residual Discard 0 ml 0 ml Estimated Blood Loss 50 ml # Bowel Movements 1 1 1 0 5 Laboratory Tests Test 11/23/16 11/24/16 11/25/16 03:14 04:20 04:30 White Blood Count 7.1 TH/MM3 9.3 TH/MM3 Red Blood Count 3.43 MIL/MM3 3.78 MIL/MM3 Hemoglobin 9.8 GM/DL 10.7 GM/DL Hematocrit 29.9 % 33.1 % Mean Corpuscular Volume 87.3 FL 87.6 FL Mean Corpuscular Hemoglobin 28.5 PG 28.3 PG Mean Corpuscular Hemoglobin 32.6 % 32.3 % Concent Red Cell Distribution Width 15.1 % 15.0 % Platelet Count 234 TH/MM3 254 TH/MM3 Mean Platelet Volume 9.2 FL 9.0 FL Neutrophils (%) (Auto) 66.1 % 80.0 % Lymphocytes (%) (Auto) 18.7 % 11.3 % Monocytes (%) (Auto) 9.5 % 6.2 % Eosinophils (%) (Auto) 5.1 % 2.2 % Basophils (%) (Auto) 0.6 % 0.3 % Neutrophils # (Auto) 4.7 TH/MM3 7.5 TH/MM3 Lymphocytes # (Auto) 1.3 TH/MM3 1.1 TH/MM3 Monocytes # (Auto) 0.7 TH/MM3 0.6 TH/MM3 Eosinophils # (Auto) 0.4 TH/MM3 0.2 TH/MM3 Basophils # (Auto) 0.0 TH/MM3 0.0 TH/MM3 CBC Comment DIFF FINAL DIFF FINAL Differential Comment Sodium Level 147 MEQ/L 144 MEQ/L 143 MEQ/L Potassium Level 3.2 MEQ/L 3.6 MEQ/L 3.5 MEQ/L Chloride Level 109 MEQ/L 107 MEQ/L 106 MEQ/L Carbon Dioxide Level 30.8 MEQ/L 31.2 MEQ/L 29.3 MEQ/L Anion Gap 7 MEQ/L 6 MEQ/L 8 MEQ/L Blood Urea Nitrogen 12 MG/DL 10 MG/DL 11 MG/DL Creatinine 0.84 MG/DL 0.79 MG/DL 0.76 MG/DL Estimat Glomerular Filtration 96 ML/MIN 103 ML/MIN 108 ML/MIN Rate Random Glucose 109 MG/DL 94 MG/DL 97 MG/DL Calcium Level 8.4 MG/DL 8.4 MG/DL 8.5 MG/DL Constitutional Vital Signs Date Time Temp Pulse Resp B/P Pulse Ox O2 Delivery O2 Flow Rate FiO2 11/25/16 08:00 91 11/25/16 08:00 98.2 92 20 141/80 96 11/25/16 07:08 99 Trach Collar 28 11/25/16 07:00 95 Trach Collar 28 Humidified 11/25/16 06:00 94 11/25/16 04:00 116 11/25/16 04:00 98.5 113 20 138/89 97 11/25/16 02:00 108 11/25/16 00:00 108 11/25/16 00:00 97.0 99 22 155/70 100 11/24/16 22:00 103 11/24/16 21:17 25 11/24/16 20:00 97.5 100 20 150/80 98 11/24/16 20:00 90 11/24/16 19:23 99 Trach Collar 28 11/24/16 19:00 98 Trach Collar 28 Humidified 11/24/16 18:00 90 11/24/16 17:45 85 14 113/67 95 Venturi Mask 35 Trach Collar 11/24/16 17:30 83 16 109/66 95 Venturi Mask 35 Trach Collar 11/24/16 17:15 97.5 85 16 116/67 97 Venturi Mask 35 Trach Collar 11/24/16 14:00 88 11/24/16 12:00 98.3 102 22 140/81 95 11/24/16 12:00 99 11/24/16 10:00 88 11/25/16 07:00 Intake Total 2406 ml Output Total 1500 ml Balance 906 ml (Meir Sánchez) Review of Systems/Exam ROS Unable to obtain a ROS due to patient being trached and limited ability to verbalise. He does shake his head "no" to any headache or dizziness. Exam HEENT: Right parietal surgical wounds with intact dressings, shadowing noted on the inferior dressing, well-approximated with steri-strips, no active drainage, erythema or streaking evident Resp: CTAB w/o W/R/R, equal excursion, non-laboured, trached & on trach collar. CV: S1S2 w/RRR w/o M/G/R, radial & pedal pulses 2+ bilaterally, cap refill < 2 sec. Monitor is sinus rhythm w/o any ectopy noted GI: Abdomen soft, nontender, positive bowel sounds, PEG tube enteral feeds. RUQ surgical incision with intact dressing, no shadowing noted. : Condom cath to BSD. Neuro: Awake & alert Does mouth a few words in response to questions Follows simple commands Moving all extremities Good muscle strength (Meir Sánchez) Medications Current Medications Current Medications Medications (Trade) Dose Ordered Sig/Nava Route Start Time Stop Time Status Last Admin (Tylenol) 650 mg Q6H PRN PO 10/05/16 02:45 11/24/16 20:17 (Protonix Inj) 40 mg DAILY IV 10/05/16 09:00 11/24/16 09:26 (Tears Naturale Opth Soln) 1 drop TID EACH EYE 10/05/16 09:00 11/24/16 18:00 (Zofran Inj) 4 mg Q6H PRN IV 10/05/16 02:45 11/06/16 20:58 Miscellaneous Information 1 Q361D XX 10/05/16 02:45 10/05/16 02:45 (Chlorhexidine 2% Cloth) Taper DAILY@04 TOP 10/05/16 04:00 10/01/17 03:59 11/16/16 03:28 Chlorhexidine Gluconate 3 pack 3 pack UNSCH PRN TOP 10/05/16 02:45 (Keppra Inj/NS Inj) 105 ml @ 420 mls/hr Q12HR IV 10/05/16 09:00 11/24/16 20:41 (Pravachol) 40 mg DAILY PO 10/05/16 09:00 11/24/16 09:00 (NS Flush) See Protocol DAILY IV FLUSH 10/07/16 09:00 11/24/16 09:28 (NS Flush) See Protocol UNSCH PRN IV FLUSH 10/06/16 12:00 Sodium Chloride UNSCH PRN IV FLUSH 10/06/16 12:00 11/21/16 19:37 (Levophed Inj/NS 250 ml Inj) 254 ml @ 0 mls/hr TITRATE IV 10/06/16 18:00 10/28/16 20:14 (Florinef) 0.2 mg Q12HR PO 10/22/16 21:00 11/24/16 20:19 Enoxaparin Sodium 40 mg 40 mg Q24H SQ 10/23/16 21:00 11/22/16 21:19 Potassium Phosphate 30 mmol/ Sodium Chloride 260 ml @ 42 mls/hr UNSCH PRN IV 10/24/16 15:15 Potassium Chloride 100 ml @ 50 mls/hr Q2H PRN IV 11/03/16 05:15 11/20/16 07:31 (KCl 20 Meq Premix Inj) 100 ml @ 50 mls/hr Q2H PRN IV 11/03/16 05:15 11/25/16 05:49 Potassium Bicarb/ Potassium Chloride 50 meq 50 meq UNSCH PRN PO 11/03/16 05:15 11/22/16 07:07 Potassium Chloride 100 ml @ 25 mls/hr UNSCH PRN IV 11/03/16 05:15 11/19/16 01:44 Potassium Chloride 100 ml @ 50 mls/hr Q2H PRN IV 11/03/16 05:15 11/18/16 18:44 (Magnesium Sulfate Inj/NS Inj) 100 ml @ 50 mls/hr UNSCH PRN IV 11/03/16 05:15 Magnesium Oxide 800 mg 800 mg UNSCH PRN PO 11/03/16 05:15 (Magnesium Sulfate Inj/NS Inj) 100 ml @ 50 mls/hr UNSCH PRN IV 11/03/16 05:15 Potassium Phosphate 2000 mg 2,000 mg Q4H PRN PO 11/03/16 05:15 (Sodium Phosphate Inj/NS 250 ml Inj) 250 ml @ 42 mls/hr UNSCH PRN IV 11/03/16 05:15 (K-Phos) 2,000 mg UNSCH PRN PO/TUBE 11/03/16 05:15 (Trandate) 100 mg Q8H PO 11/03/16 20:00 11/25/16 03:33 (Apresoline) 50 mg Q12HR PO 11/03/16 19:00 11/24/16 20:18 (Norvasc) 5 mg DAILY PO 11/04/16 09:00 11/24/16 09:27 (Mycostatin Powder) 1 applic TID TOPICAL 11/06/16 09:00 11/24/16 18:00 (Lactinex) 1 tab Q12HR PO 11/06/16 21:00 11/24/16 20:18 (SEROquel) 25 mg BID@09,12 PO 11/07/16 09:00 11/24/16 12:27 (Colace Liq) 100 mg Q12H PRN G-TUBE 11/06/16 17:00 (Imodium) 2 mg UNSCH PRN PO 11/09/16 09:45 11/23/16 21:16 (Lomotil Tab) 1 tab Q6H PRN PO 11/09/16 09:45 (Flagyl) 500 mg Q8H PO 11/09/16 16:00 11/25/16 00:54 (Benadryl Inj) 50 mg Q6H PRN IV 11/16/16 23:00 11/25/16 03:37 (SEROquel) 25 mg HS PO 11/20/16 21:00 11/24/16 20:19 (KCl) 20 meq BID PO 11/23/16 09:00 11/24/16 20:18 (Sodium Chloride) 2 gm DAILY PO 11/24/16 09:00 11/24/16 09:27 Miscellaneous Information ALL NURSING DEPARTME... UNSCH PRN .XX 11/24/16 18:15 11/25/16 18:14 (Meir Sánchez) Medical Decision Making MDM Remarks 1. Neurological function stable s/p CERTIFIED OPHTHALMIC ASSISTANT shunt 2. 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 Left basal ganglia region CVA primarily per CT 4. CSF cultures w/o any growth 5. Max temp 98.5 6. Enterobacter cloacae in sputum from 7. Hypokalemia, resolved 8. Hypernatremia, resolved 9. Hydrocephalus 10. Clostridium difficile infection, negative stool x3 after tx CT brain demonstrates CERTIFIED OPHTHALMIC ASSISTANT shunt in place with normal sized ventricles CSF from without any findings upon Gram stain POD #1 () s/p: CERTIFIED OPHTHALMIC ASSISTANT shunt placement (Meir Sánchez) Plan Plan Remarks Cognitive/speech therapy eval & tx Activity OOB to cardiac chair Continue PT & OT Continue abx per Surgical Territory Sales Representative Okay for Lovenox from NSGY standpoint Ulcer prophylaxis Keep SBP between 120-160 mm Hg Consider d/c'ing Kerocaelra (Meir Sánchez) Attending Statement The exam, history, and the medical decision-making described in the above note were completed with the assistance of the mid-level provider. I reviewed and agree with the findings presented. I attest that I had a [id number] encounter with the patient on the same day, and personally performed and documented my assessment and findings in the medical record. Stable postop neuro exam. OK for Lovenox Mobilize OOB with PT (Gino Mace MD) Meir Sánchez November 25, 2016 09:12 Gino Mace MD Jan 03, 2017 16:40
--- NOTE | 2016-11-25 16:12 | HHI.PR ---
Subjective Remarks patient follows commands but does not answer question. per nurse this is his baseline. he shock his head no when I asked him if he has any pain. No acute. Objective Vitals Vital Signs Date Time Temp Pulse Resp B/P Pulse Ox O2 Delivery O2 Flow Rate FiO2 11/25/16 14:00 92 11/25/16 12:00 97.7 100 21 117/78 97 11/25/16 12:00 100 11/25/16 10:00 94 11/25/16 08:00 91 11/25/16 08:00 98.2 92 20 141/80 96 11/25/16 07:08 99 Trach Collar 28 11/25/16 07:00 95 Trach Collar 28 Humidified 11/25/16 06:00 94 11/25/16 04:00 116 11/25/16 04:00 98.5 113 20 138/89 97 11/25/16 02:00 108 11/25/16 00:00 108 11/25/16 00:00 97.0 99 22 155/70 100 11/24/16 22:00 103 11/24/16 21:17 25 11/24/16 20:00 97.5 100 20 150/80 98 11/24/16 20:00 90 11/24/16 19:23 99 Trach Collar 28 11/24/16 19:00 98 Trach Collar 28 Humidified 11/24/16 18:00 90 11/24/16 17:45 85 14 113/67 95 Venturi Mask 35 Trach Collar 11/24/16 17:30 83 16 109/66 95 Venturi Mask 35 Trach Collar 11/24/16 17:15 97.5 85 16 116/67 97 Venturi Mask 35 Trach Collar I/O 11/24/16 11/24/16 11/24/16 11/25/16 11/25/16 11/25/16 07:00 15:00 23:00 07:00 15:00 23:00 Intake Total 30 ml 160 ml 1508 ml 738 ml 1142 ml Output Total 375 ml 850 ml 650 ml 450 ml Balance -345 ml -690 ml 858 ml 738 ml 692 ml IV Total 100 ml 18 ml 495 ml 496 ml Tube Feeding 0 ml 190 ml 243 ml 526 ml Other 30 ml 60 ml 1300 ml 120 ml Output Urine Total 375 ml 850 ml 600 ml 450 ml Estimated Blood Loss 50 ml # Bowel Movements 0 5 0 Result Diagram: 11/25/16 0430 11/25/16 0430 Objective Remarks General: No acute distress. In soft wrist and mitten restraints. Trach collar. Heart: Regular rate and rhythm. No murmur. Lungs: Clear to auscultation bilaterally. No wheezes, rales, or rhonchi. Abdomen: Soft, nontender, nondistended. Positive bowel sounds. Extremities: No lower extremity edema. SCDs. Psych: awake and follow commands Procedures 10/05/16 right frontal twist drill for ventriculostomy placement 10/20/16 arterial line placement 10/23/16 bedside percutaneous tracheostomy under direct bronchoscopic visualization 10/24/16 PEG tube placement at bedside Medications and IVs Current Medications Propofol 100 ml @ As Directed STK-MED ONCE .ROUTE ; Start 10/05/16 at 01:16; Stop 10/05/16 at :; Status DC Cefazolin Sodium/ Dextrose 50 ml @ As Directed STK-MED ONCE .ROUTE ; Start at 01:23; Stop 10/05/16 at 01:24; Status DC Cefazolin Sodium/ Dextrose (Ancef 2 Gm Premix) 50 ml @ 100 mls/hr ONCE STAT IV ; Start 10/05/16 at 01:26; Stop 10/05/16 at 01:55; Status DC Diphtheria/ Tetanus/Acell Pertussis (Boostrix Inj) 0.5 ml ONCE ONCE IM ; Start 10/05/16 at 01:26; Stop 10/05/16 at 01:28; Status DC Nicardipine HCl (Cardene Inj) 25 mg STK-MED ONCE .ROUTE ; Start 10/05/16 at 01:26 ; Stop 10/05/16 at 01:27; Status DC Nicardipine HCl 25 mg 25 mg STK-MED ONCE .ROUTE ; Start 10/05/16 at 01:27; Stop 10/05/16 at 01:28; Status DC Sodium Chloride 1,000 ml @ 0 mls/hr Q0M IV ; Start 10/05/16 at 01:30; Stop at 02:57; Status DC Nicardipine HCl/ Sodium Chloride (Cardene Inj/NS 250 ml Inj) 260 ml @ 0 mls/hr TITRATE ONCE IV Last administered on 10/05/16t 02:00; Start 10/05/16 at 02:00; Stop 10/05/16 at 02:01; Status DC Iohexol (Omnipaque 350 Inj) 97 ml STK-MED ONCE IV Last administered on 02:11; Start 10/05/16 at 02:11; Stop 10/05/16 at 02:12; Status DC Etomidate (Amidate Inj) 20 mg STK-MED ONCE .ROUTE ; Start 10/05/16 at 02:13; Stop 10/05/16 at 02:14; Status DC Epinephrine HCl (EPINEPHrine (1:10,000) INJ) 1 mg STK-MED ONCE .ROUTE ; Start at 02:32; Stop 10/05/16 at 02:33; Status DC Atropine Sulfate (Atropine Inj) 1 mg STK-MED ONCE .ROUTE ; Start 10/05/16 at 02: 33; Stop 10/05/16 at 02:34; Status DC Lidocaine HCl 100 mg 100 mg STK-MED ONCE .ROUTE ; Start 10/05/16 at 02:33; Stop 10/05/16 at 02:34; Status DC Sodium Chloride (NS 1000 ml Inj) 1,000 ml @ 84 mls/hr [id number] IV Last administered on 10/14/16 23:55; Start 10/05/16 at 02:31; Stop 10/15/16 at 22:17 ; Status DC Acetaminophen (Tylenol) 650 mg Q6H PRN PO PAIN 1-10 AND/OR FEVER >101F Last administered on 11/24/16 20:17; Start 10/05/16 at 02:45 Morphine Sulfate (Morphine Inj) 2 mg Q2H PRN IV PAIN SCALE 6 TO 10 Last administered on 10/15/16 19:04; Start 10/05/16 at 02:45; Stop 10/22/16 at 06:04 ; Status DC Pantoprazole Sodium (Protonix Inj) 40 mg DAILY IV Last administered on 08:50; Start 10/05/16 at 09:00 Lorazepam (Ativan Inj) 2 mg Q4H PRN IV Agitation/Sedation Last administered on 10/11/16 12:27; Start 10/05/16 at 02:45; Stop 10/18/16 at 14:41; Status DC Artificial Tears (Tears Naturale Opth Soln) 1 drop TID EACH EYE Last administered on 11/25/16 12:20; Start 10/05/16 at 09:00 Ondansetron HCl (Zofran Inj) 4 mg Q6H PRN IV NAUSEA OR VOMITING Last administered on 11/06/16 20:58; Start 10/05/16 at 02:45 Metoclopramide HCl (Reglan Inj) 10 mg Q6H PRN IV NAUSEA OR VOMITING Last administered on 10/13/16 09:48; Start 10/05/16 at 02:45; Stop 10/19/16 at 07:38 ; Status DC Docusate Sodium (Colace) 100 mg Q12H G-TUBE Last administered on 10/30/16 05: 12; Start 10/05/16 at 04:00; Stop 10/31/16 at 16:41; Status DC Albuterol/ Ipratropium (Duoneb Neb) 1 ampule Q2HR NEB PRN INH WHEEZING Last administered on 10/31/16 13:41; Start 10/05/16 at 02:45 Miscellaneous Information 1 [id number] Last administered on 10/05/16 02:45; Start 10/05/16 at 02:45 Chlorhexidine Gluconate (Chlorhexidine 2% Cloth) Taper DAILY@04 TOP Last administered on 11/16/16 03:28; Start 10/05/16 at 04:00; Stop 10/01/17 at 03:59 Chlorhexidine Gluconate 3 pack 3 pack UNSCH PRN TOP HYGIENIC CARE; Start at 02:45 Propofol (Diprivan 1000 Mg/100ml Inj) 100 ml @ 0 mls/hr TITRATE IV Last administered on 10/13/16 16:58; Start 10/05/16 at 02:45; Stop 10/18/16 at 14:41 ; Status DC Nimodipine 60 mg 60 mg Q4HR PO ; Start 10/05/16 at 04:00; Stop 10/05/16 at 04:00; Status DC Potassium Chloride/Sodium Chloride 1,000 ml @ 100 mls/hr Q10H IV ; Start at 02:15; Stop 10/05/16 at 02:56; Status DC Levetriacetam 500 mg/Sodium Chloride 105 ml @ 420 mls/hr Q12HR IV Last administered on 11/25/16 08:49; Start 10/05/16 at 09:00 Nicardipine HCl/ Sodium Chloride (Cardene Inj/NS 250 ml Inj) 260 ml @ 0 mls/hr TITRATE IV Last administered on 10/18/16 11:23; Start 10/05/16 at 02:45; Stop 11/05/16 at 13:47; Status DC Labetalol HCl (Trandate Inj) 10 mg Q4H PRN IV PUSH SBP>140, DBP>90 Last administered on 11/03/16 05:45; Start 10/05/16 at 02:45; Stop 11/05/16 at 13:47; Status DC Nimodipine (Nimotop) 60 mg Q4HR PO Last administered on 10/17/16 07:16; Start 10/05/16 at 04:00; Stop 10/17/16 at 10:55; Status DC Pravastatin Sodium (Pravachol) 40 mg DAILY PO Last administered on 11/25/16 08 :50; Start 10/05/16 at 09:00 Iohexol (Omnipaque 350 Inj) 75 ml STK-MED ONCE IV Last administered on 04:15; Start 10/05/16 at 04:15; Stop 10/05/16 at 04:16; Status DC Verapamil HCl (Isoptin Inj) 10 mg STK-MED ONCE .ROUTE Last administered on 13:04; Start 10/05/16 at 13:04; Stop 10/05/16 at 13:05; Status DC Heparin Sodium (Porcine) (*HEPARIN INJ Periprocedural ONLY) 10,000 units STK- MED ONCE .ROUTE Last administered on 10/05/16 14:16; Start 10/05/16 at 15:05; Stop 10/05/16 at 15:06; Status DC Iodixanol (Visipaque 320 Inj) 120 ml STK-MED ONCE I-ARTERIAL Last administered on 10/05/16 16:18; Start 10/05/16 at 16:18; Stop 10/05/16 at 16:19; Status DC Fentanyl Citrate 100 mcg 100 mcg STK-MED ONCE .ROUTE ; Start 10/05/16 at 16:49; Stop 10/05/16 at 16:50; Status DC Fentanyl Citrate (fentaNYL DRIP) 250 ml @ 0 mls/hr TITRATE IV Last administered on 10/17/16 00:29; Start 10/05/16 at 22:15; Stop 10/17/16 at 11:30 ; Status DC Norepinephrine Bitartrate 4 mg 4 mg STK-MED ONCE .ROUTE ; Start 10/06/16 at 04:03 ; Stop 10/06/16 at 04:04; Status DC Sodium Chloride (NS 1000 ml Inj) 999 ml @ 0 mls/hr BOLUS ONCE IV Last administered on 10/06/16 06:38; Start 10/06/16 at 06:45; Stop 10/06/16 at 06:46; Status DC Sodium Chloride (NS Flush) See Protocol DAILY IV FLUSH Last administered on 08:51; Start 10/07/16 at 09:00 Sodium Chloride (NS Flush) See Protocol UNSCH PRN IV FLUSH SEE PROTOCOL TABLE; Start 10/06/16 at 12:00 Heparin Sodium (Porcine) (Heparin Central Flush) See Protocol DAILY IV FLUSH Last administered on 10/13/16 09:00; Start 10/07/16 at 09:00; Stop 10/18/16 at 14:41; Status DC Heparin Sodium (Porcine) (Heparin Central Flush) See Protocol UNSCH PRN IV FLUSH SEE PROTOCOL TABLE Last administered on 10/11/16 08:00; Start 10/06/16 at 12:00; Stop 10/18/16 at 14:41; Status DC Sodium Chloride (NS Flush) UNSCH PRN IV FLUSH SEE PROTOCOL TABLE Last administered on 11/21/16 19:37; Start 10/06/16 at 12:00 Norepinephrine Bitartrate 4 mg 4 mg STK-MED ONCE .ROUTE ; Start 10/06/16 at 17:30 ; Stop 10/06/16 at 17:31; Status DC Norepinephrine Bitartrate 4 mg/ Sodium Chloride 254 ml @ 0 mls/hr TITRATE IV Last administered on 10/28/16 20:14; Start 10/06/16 at 18:00 Potassium Chloride 100 ml @ 50 mls/hr Q2H PRN IV For Potassium 2.8 - 3.2 mEq/L ; Start 10/07/16 at 08:00; Stop 10/12/16 at 13:11; Status DC Potassium Chloride 100 ml @ 50 mls/hr Q2H PRN IV For Potassium 2.8 - 3.2 mEq/L ; Start 10/07/16 at 08:00; Stop 10/12/16 at 13:11; Status DC Potassium Chloride 100 ml @ 25 mls/hr UNSCH PRN IV For Potassium 3.3 - 3.5 mEq /L Last administered on 10/07/16 15:56; Start 10/07/16 at 08:00; Stop 10/12/16 at 13:11; Status DC Potassium Chloride 100 ml @ 50 mls/hr Q2H PRN IV For Potassium 3.3 - 3.5 mEq/ L Last administered on 10/11/16 07:41; Start 10/07/16 at 08:00; Stop 10/12/16 at 13:11; Status DC Magnesium Sulfate/ Sodium Chloride (Magnesium Sulfate Inj/NS Inj) 100 ml @ 50 mls/hr UNSCH PRN IV For Magnesium 0.9 - 1.1 mg/dL; Start 10/07/16 at 08:00; Stop 10/12/16 at 13:11; Status DC Magnesium Oxide 800 mg 800 mg UNSCH PRN PO For Magnesium 1.2 - 1.6 mg/dL; Start 10/07/16 at 08:00; Stop 10/12/16 at 13:11; Status DC Magnesium Sulfate/ Sodium Chloride (Magnesium Sulfate Inj/NS Inj) 100 ml @ 50 mls/hr UNSCH PRN IV For Magnesium 1.2 - 1.6 mg/dL; Start 10/07/16 at 08:00; Stop 10/12/16 at 13:11; Status DC Potassium Phosphate 2000 mg 2,000 mg Q4H PRN PO For Phosphorus < 2.5 mg/dL; Start 10/07/16 at 08:00; Stop 10/12/16 at 13:11; Status DC Sodium Phosphate/ Sodium Chloride (Sodium Phosphate Inj/NS 250 ml Inj) 250 ml @ 42 mls/hr UNSCH PRN IV For Phosphorus < 2.5 mg/dL; Start 10/07/16 at 08:00; Stop 10/12/16 at 13:11; Status DC Potassium Phosphate 2000 mg 2,000 mg UNSCH PRN PO/TUBE SEE LABEL COMMENTS Last administered on 10/07/16 15:56; Start 10/07/16 at 08:00; Stop 10/12/16 at 13:11; Status DC Potassium Phosphate/Sodium Chloride (Potassium Phosphate Inj/NS 250 ml Inj) 260 ml @ 42 mls/hr UNSCH PRN IV SEE LABEL COMMENTS Last administered on 10/08/16 11:23; Start 10/07/16 at 08:00; Stop 10/12/16 at 13:11; Status DC Clonidine (Catapres) 0.1 mg Q8H PRN NG SBP>170, DBP>90 Last administered on 00:28; Start 10/09/16 at 16:15; Stop 10/18/16 at 14:41; Status DC Polyethylene Glycol (Miralax) 17 gm DAILY PO Last administered on 10/28/16 09: 09; Start 10/10/16 at 14:00; Stop 10/30/16 at 15:12; Status DC Lactulose (Lactulose Liq) 30 ml DAILY PO Last administered on 10/28/16 09:09; Start 10/10/16 at 14:00; Stop 10/30/16 at 15:12; Status DC Metoprolol Tartrate 25 mg 25 mg Q6H PO Last administered on 10/18/16 09:36; Start 10/10/16 at 14:00; Stop 10/18/16 at 14:41; Status DC Labetalol HCl 500 mg/Sodium Chloride 250 ml @ 0 mls/hr TITRATE IV ; Start at 17:00; Stop 10/18/16 at 14:41; Status DC Sodium Chloride (NS 250 ml Inj) 250 ml @ As Directed STK-MED ONCE .ROUTE ; Start 10/11/16 at 02:29; Stop 10/11/16 at 02:30; Status DC Nicardipine HCl (Cardene Inj) 25 mg STK-MED ONCE .ROUTE ; Start 10/11/16 at 02: 29; Stop 10/11/16 at 02:30; Status DC Tamsulosin HCl (Flomax) 0.4 mg Q12HR PO Last administered on 10/17/16 07:16; Start 10/11/16 at 09:00; Stop 10/18/16 at 14:41; Status DC Epinephrine HCl (EPINEPHrine (1:10,000) INJ) 1 mg STK-MED ONCE .ROUTE ; Start at 09:51; Stop 10/11/16 at 09:52; Status DC Atropine Sulfate (Atropine Inj) 1 mg STK-MED ONCE .ROUTE ; Start 10/11/16 at 09: 51; Stop 10/11/16 at 09:52; Status DC Lidocaine HCl (Xylocaine 2% Inj) 100 mg STK-MED ONCE .ROUTE ; Start 10/11/16 at 09:51; Stop 10/11/16 at 09:52; Status DC Iohexol (Omnipaque 350 Inj) 100 ml STK-MED ONCE IV Last administered on 10:56; Start 10/11/16 at 10:56; Stop 10/11/16 at 10:57; Status DC Norepinephrine Bitartrate 4 mg 4 mg STK-MED ONCE .ROUTE ; Start 10/11/16 at 20: 25; Stop 10/11/16 at 20:26; Status DC Aztreonam 2000 mg/ Sodium Chloride 100 ml @ 200 mls/hr Q8H IV Last administered on 10/19/16 01:39; Start 10/12/16 at 02:00; Stop 10/19/16 at 07:38 ; Status DC Pharmacy Profile Note 0 ml @ 0 mls/hr UNSCH OTHER ; Start 10/12/16 at 02:15; Stop 10/13/16 at 17:17; Status DC Metronidazole 100 ml @ 100 mls/hr Q6H IV Last administered on 10/19/16 03:33 ; Start 10/12/16 at 03:00; Stop 10/19/16 at 07:39; Status DC Vancomycin HCl 2500 mg/Sodium Chloride 525 ml @ 250 mls/hr ONCE ONCE IV Last administered on 10/12/16 04:00; Start 10/12/16 at 04:00; Stop 10/12/16 at 06:05 ; Status DC Vancomycin HCl/ Sodium Chloride (Vancomycin Inj/ NS 500 ml Inj) 520 ml @ 250 mls/hr ONCE ONCE IV Last administered on 10/13/16 11:30; Start 10/13/16 at 11 :00; Stop 10/13/16 at 17:17; Status DC Epinephrine HCl (EPINEPHrine (1:10,000) INJ) 1 mg STK-MED ONCE .ROUTE ; Start at 03:26; Stop 10/14/16 at 03:27; Status DC Atropine Sulfate (Atropine Inj) 1 mg STK-MED ONCE .ROUTE ; Start 10/14/16 at 03: 26; Stop 10/14/16 at 03:27; Status DC Lidocaine HCl 100 mg 100 mg STK-MED ONCE .ROUTE ; Start 10/14/16 at 03:27; Stop 10/14/16 at 03:28; Status DC Potassium Chloride 100 ml @ 50 mls/hr Q2H PRN IV For Potassium 2.8 - 3.2 mEq/ L Last administered on 10/30/16 05:12; Start 10/14/16 at 16:00; Stop 10/30/16 at 15:11; Status DC Potassium Chloride (KCl 20 Meq Premix Inj) 100 ml @ 50 mls/hr Q2H PRN IV For Potassium 2.8 - 3.2 mEq/L Last administered on 10/30/16 13:40; Start 10/14/16 at 16:00; Stop 10/30/16 at 15:11; Status DC Potassium Bicarb/ Potassium Chloride 50 meq 50 meq UNSCH PRN PO For Potassium 3.3 - 3.5 mEq/L Last administered on 10/30/16 05:12; Start 10/14/16 at 16:00; Stop 10/30/16 at 15:11; Status DC Potassium Chloride 100 ml @ 25 mls/hr UNSCH PRN IV For Potassium 3.3 - 3.5 mEq /L Last administered on 10/18/16 06:50; Start 10/14/16 at 16:00; Stop 10/30/16 at 15:11; Status DC Potassium Chloride 100 ml @ 50 mls/hr Q2H PRN IV For Potassium 3.3 - 3.5 mEq/ L Last administered on 10/27/16 07:41; Start 10/14/16 at 16:00; Stop 10/30/16 at 15:11; Status DC Magnesium Sulfate/ Sodium Chloride (Magnesium Sulfate Inj/NS Inj) 100 ml @ 50 mls/hr UNSCH PRN IV For Magnesium 0.9 - 1.1 mg/dL; Start 10/14/16 at 16:00; Stop 10/30/16 at 15:11; Status DC Magnesium Oxide 800 mg 800 mg UNSCH PRN PO For Magnesium 1.2 - 1.6 mg/dL; Start 10/14/16 at 16:00; Stop 10/30/16 at 15:11; Status DC Magnesium Sulfate/ Sodium Chloride (Magnesium Sulfate Inj/NS Inj) 100 ml @ 50 mls/hr UNSCH PRN IV For Magnesium 1.2 - 1.6 mg/dL; Start 10/14/16 at 16:00; Stop 10/30/16 at 15:11; Status DC Potassium Phosphate 2000 mg 2,000 mg Q4H PRN PO For Phosphorus < 2.5 mg/dL Last administered on 10/17/16 02:00; Start 10/14/16 at 16:00; Stop 10/30/16 at 15:11; Status DC Sodium Phosphate/ Sodium Chloride (Sodium Phosphate Inj/NS 250 ml Inj) 250 ml @ 42 mls/hr UNSCH PRN IV For Phosphorus < 2.5 mg/dL Last administered on 20:31; Start 10/14/16 at 16:00; Stop 10/30/16 at 15:11; Status DC Potassium Phosphate 2000 mg 2,000 mg UNSCH PRN PO/TUBE SEE LABEL COMMENTS Last administered on 10/18/16 06:51; Start 10/14/16 at 16:00; Stop 10/30/16 at 15:11 ; Status DC Potassium Phosphate/Sodium Chloride (Potassium Phosphate Inj/NS 250 ml Inj) 260 ml @ 42 mls/hr UNSCH PRN IV SEE LABEL COMMENTS; Start 10/14/16 at 16:00; Stop 10/30/16 at 15:11; Status DC Verapamil HCl (Isoptin Inj) 15 mg STK-MED ONCE .ROUTE Last administered on 10/15 12:55; Start 10/15/16 at 12:55; Stop 10/15/16 at 12:56; Status DC Verapamil HCl (Isoptin Inj) 5 mg STK-MED ONCE .ROUTE Last administered on 13:33; Start 10/15/16 at 13:33; Stop 10/15/16 at 13:34; Status DC Iodixanol 75 ml 75 ml STK-MED ONCE I-ARTERIAL Last administered on 4/15/17at 13 :52; Start 10/15/16 at 13:52; Stop 10/15/16 at 13:53; Status DC Sodium Chloride (NS 250 ml Inj) 250 ml @ As Directed STK-MED ONCE .ROUTE ; Start 10/15/16 at 20:40; Stop 10/15/16 at 20:41; Status DC Nicardipine HCl 25 mg 25 mg STK-MED ONCE .ROUTE ; Start 10/15/16 at 20:40; Stop 10/15/16 at 20:41; Status DC Sodium Chloride (NS 250 ml Inj) 250 ml @ As Directed STK-MED ONCE .ROUTE ; Start 10/15/16 at 22:51; Stop 10/15/16 at 22:52; Status DC Nicardipine HCl 25 mg 25 mg STK-MED ONCE .ROUTE ; Start 10/15/16 at 22:51; Stop 10/15/16 at 22:52; Status DC Sodium Chloride (NS 250 ml Inj) 250 ml @ As Directed STK-MED ONCE .ROUTE ; Start 10/16/16 at 01:03; Stop 10/16/16 at 01:04; Status DC Nicardipine HCl 25 mg 25 mg STK-MED ONCE .ROUTE ; Start 10/16/16 at 01:03; Stop 10/16/16 at 01:05; Status DC Sodium Chloride (NS 250 ml Inj) 250 ml @ As Directed STK-MED ONCE .ROUTE ; Start 10/16/16 at 01:47; Stop 10/16/16 at 01:48; Status DC Nicardipine HCl (Cardene Inj) 25 mg STK-MED ONCE .ROUTE ; Start 10/16/16 at 01: 47; Stop 10/16/16 at 01:48; Status DC Nicardipine HCl (Cardene Inj) 25 mg STK-MED ONCE .ROUTE ; Start 10/16/16 at 03: 51; Stop 10/16/16 at 03:52; Status DC Epinephrine HCl (EPINEPHrine (1:10,000) INJ) 1 mg STK-MED ONCE .ROUTE ; Start at 03:57; Stop 10/16/16 at 03:58; Status DC Atropine Sulfate (Atropine Inj) 1 mg STK-MED ONCE .ROUTE ; Start 10/16/16 at 03: 57; Stop 10/16/16 at 03:58; Status DC Lidocaine HCl (Xylocaine 2% Inj) 100 mg STK-MED ONCE .ROUTE ; Start 10/16/16 at 03:57; Stop 10/16/16 at 03:58; Status DC Diphenhydramine HCl (Benadryl Inj) 25 mg Q6H PRN IV RASH Last administered on 03:12; Start 10/16/16 at 08:15; Stop 10/18/16 at 14:41; Status DC Nimodipine (Nimotop) 30 mg Q2H PO Last administered on 10/26/16 06:53; Start 10/17/16 at 11:00; Stop 10/26/16 at 08:46; Status DC Iohexol 70 ml 70 ml STK-MED ONCE IV Last administered on 10/19/16 14:36; Start 10/19/16 at 14:36; Stop 10/19/16 at 14:37; Status DC Phenylephrine HCl/ Sodium Chloride (Neosynephrine Inj/NS 500 ml Inj) 500 ml @ 0 mls/hr TITRATE IV Last administered on 10/20/16 16:29; Start 10/19/16 at 16:30 ; Stop 10/23/16 at 10:42; Status DC Alteplase, Recombinant (Cathflo Activase Inj) 2 mg UNSCH PRN IV FLUSH PICC LINE OCCLUSION Last administered on 11/01/16 21:47; Start 10/19/16 at 16:15; Stop 11/05/16 at 13:47; Status DC Verapamil HCl (Isoptin Inj) 5 mg STK-MED ONCE .ROUTE Last administered on 17:20; Start 10/19/16 at 16:05; Stop 10/19/16 at 16:06; Status DC Midazolam HCl (Versed Inj) 2 mg STK-MED ONCE .ROUTE Last administered on 17:18; Start 10/19/16 at 17:18; Stop 10/19/16 at 17:19; Status DC Verapamil HCl (Isoptin Inj) 5 mg STK-MED ONCE .ROUTE Last administered on 17:27; Start 10/19/16 at 17:27; Stop 10/19/16 at 17:28; Status DC Iodixanol (Visipaque 320 Inj) 100 ml STK-MED ONCE I-ARTERIAL Last administered on 10/19/16 18:08; Start 10/19/16 at 18:08; Stop 10/19/16 at 18:09; Status DC Diphenhydramine HCl 6.25 mg 6.25 mg Q4H PRN IV PUSH itching, rash Last administered on 11/04/16 20:45; Start 10/19/16 at 19:15; Stop 11/05/16 at 13:47; Status DC Vancomycin HCl 1250 mg/Sodium Chloride 262.5 ml @ 250 mls/hr ONCE ONCE IV ; Start 10/20/16 at 12:30; Stop 10/20/16 at 12:33; Status DC Cefepime HCl 2000 mg/Sodium Chloride 100 ml @ 200 mls/hr Q8H IV Last administered on 10/29/16 21:00; Start 10/20/16 at 13:00; Stop 10/29/16 at 23:59 ; Status DC Metronidazole 100 ml @ 100 mls/hr Q6H IV Last administered on 10/23/16 08:13 ; Start 10/20/16 at 14:00; Stop 10/23/16 at 10:43; Status DC Vancomycin HCl 1250 mg/Sodium Chloride 262.5 ml @ 250 mls/hr ONCE ONCE IV Last administered on 10/20/16 15:00; Start 10/20/16 at 15:00; Stop 10/20/16 at 16:02; Status DC Vasopressin/ Dextrose (Pitressin Inj/ D5W 100 ml Inj) 100 ml @ 6 mls/hr [id number] IV Last administered on 10/23/16 04:16; Start 10/20/16 at 15:23; Stop at 10:43; Status DC Dextrose (D50w (Vial) Inj) 25 ml UNSCH PRN IV PUSH HYPOGLYCEMIA-SEE COMMENTS; Start 10/20/16 at 17:15; Stop 10/30/16 at 15:07; Status DC Insulin Human Regular 1 1 Q6HR SQ Last administered on 10/23/16 05:39; Start 10/20/16 at 18:00; Stop 10/30/16 at 15:07; Status DC Sodium Chloride 500 ml @ 500 mls/hr BOLUS ONCE IV Last administered on 18:27; Start 10/20/16 at 17:15; Stop 10/20/16 at 18:14; Status DC Sodium Chloride 1,000 ml @ 999 mls/hr BOLUS ONCE IV Last administered on 10/21 10:01; Start 10/21/16 at 08:30; Stop 10/21/16 at 09:30; Status DC Sodium Chloride (NS 1000 ml Inj) 1,000 ml @ 60 mls/hr [id number] IV Last administered on 11/18/16 00:21; Start 10/21/16 at 08:30; Stop 11/18/16 at 08:54 ; Status DC Sodium Chloride 2 gm 2 gm Q8HR PO Last administered on 10/22/16 04:56; Start 10/21/16 at 08:30; Stop 10/22/16 at 10:01; Status DC Sodium Chloride (NS 500 ml Inj) 500 ml @ 500 mls/hr BOLUS ONCE IV Last administered on 10/21/16 20:06; Start 10/21/16 at 19:15; Stop 10/21/16 at 20:14 ; Status DC Fludrocortisone Acetate 0.1 mg 0.1 mg Q12HR PO Last administered on 10/22/16 09:13; Start 10/22/16 at 09:00; Stop 10/22/16 at 16:26; Status DC Sodium Chloride 500 ml @ 20 mls/hr ONCE ONCE IV Last administered on 06:15; Start 10/22/16 at 06:15; Stop 10/23/16 at 07:14; Status DC Sodium Chloride (NS 1000 ml Inj) 1,000 ml @ 999 mls/hr BOLUS ONCE IV Last administered on 10/22/16 06:15; Start 10/22/16 at 06:15; Stop 10/22/16 at 07:15 ; Status DC Sodium Chloride (Sodium Chloride) 3 gm Q8HR PO Last administered on 11/16/16 05:48; Start 10/22/16 at 14:00; Stop 11/16/16 at 09:16; Status DC Fludrocortisone Acetate 0.2 mg 0.2 mg Q12HR PO Last administered on 11/25/16 08:51; Start 10/22/16 at 21:00 Sodium Chloride 1,000 ml @ 999 mls/hr BOLUS ONCE IV Last administered on 10/22 16:49; Start 10/22/16 at 16:30; Stop 10/22/16 at 17:30; Status DC Sodium Chloride 500 ml @ 40 mls/hr CONTINUOUS IV Last administered on 18:50; Start 10/22/16 at 16:30; Stop 10/23/16 at 19:54; Status DC Sodium Chloride (NS 500 ml Inj) 500 ml @ 500 mls/hr BOLUS ONCE IV Last administered on 10/23/16 06:46; Start 10/23/16 at 06:45; Stop 10/23/16 at 07:44 ; Status DC Cisatracurium Besylate 20 mg 20 mg STAT ONCE IV Last administered on 11:35; Start 10/23/16 at 10:30; Stop 10/23/16 at 11:01; Status DC Propofol (Diprivan 1000 Mg/100ml Inj) 100 ml @ 0 mls/hr TITRATE IV ; Start 10/23 at 10:30; Stop 10/25/16 at 11:27; Status DC Fentanyl Citrate (fentaNYL INJ) 100 mcg STAT ONCE IV PUSH Last administered on 10/23/16 11:35; Start 10/23/16 at 10:30; Stop 10/23/16 at 11:02; Status DC Enoxaparin Sodium 40 mg 40 mg Q24H SQ Last administered on 11/22/16 21:19; Start 10/23/16 at 21:00 Sodium Chloride (Sodium Chloride 3% Inj) 500 ml @ 20 mls/hr CONTINUOUS IV Last administered on 10/24/16 10:32; Start 10/23/16 at 20:00; Stop 10/25/16 at 20:01; Status DC Propofol 130 mg 130 mg STK-MED ONCE IV ; Start 10/24/16 at 08:53; Stop 10/24/16 at 10:11; Status DC Potassium Chloride 100 ml @ 50 mls/hr Q2H PRN IV For Potassium 2.8 - 3.2 mEq/ L Last administered on 11/03/16 05:17; Start 10/24/16 at 15:15; Stop 11/04/16 at 12:19; Status DC Potassium Chloride (KCl 20 Meq Premix Inj) 100 ml @ 50 mls/hr Q2H PRN IV For Potassium 2.8 - 3.2 mEq/L Last administered on 10/31/16 16:39; Start 10/24/16 at 15:15; Stop 11/04/16 at 12:19; Status DC Potassium Bicarb/ Potassium Chloride 50 meq 50 meq UNSCH PRN PO For Potassium 3.3 - 3.5 mEq/L; Start 10/24/16 at 15:15; Stop 11/04/16 at 12:19; Status DC Potassium Chloride 100 ml @ 25 mls/hr UNSCH PRN IV For Potassium 3.3 - 3.5 mEq /L Last administered on 10/26/16 21:47; Start 10/24/16 at 15:15; Stop 11/04/16 at 12:19; Status DC Potassium Chloride 100 ml @ 50 mls/hr Q2H PRN IV For Potassium 3.3 - 3.5 mEq/L ; Start 10/24/16 at 15:15; Stop 11/04/16 at 12:19; Status DC Magnesium Sulfate/ Sodium Chloride (Magnesium Sulfate Inj/NS Inj) 100 ml @ 50 mls/hr UNSCH PRN IV For Magnesium 0.9 - 1.1 mg/dL; Start 10/24/16 at 15:15; Stop 11/04/16 at 12:19; Status DC Magnesium Oxide 800 mg 800 mg UNSCH PRN PO For Magnesium 1.2 - 1.6 mg/dL; Start 10/24/16 at 15:15; Stop 11/04/16 at 12:19; Status DC Magnesium Sulfate/ Sodium Chloride (Magnesium Sulfate Inj/NS Inj) 100 ml @ 50 mls/hr UNSCH PRN IV For Magnesium 1.2 - 1.6 mg/dL; Start 10/24/16 at 15:15; Stop 11/04/16 at 12:19; Status DC Potassium Phosphate 2000 mg 2,000 mg Q4H PRN PO For Phosphorus < 2.5 mg/dL; Start 10/24/16 at 15:15; Stop 11/04/16 at 12:19; Status DC Sodium Phosphate/ Sodium Chloride (Sodium Phosphate Inj/NS 250 ml Inj) 250 ml @ 42 mls/hr UNSCH PRN IV For Phosphorus < 2.5 mg/dL; Start 10/24/16 at 15:15; Stop 11/04/16 at 12:19; Status DC Potassium Phosphate 2000 mg 2,000 mg UNSCH PRN PO/TUBE SEE LABEL COMMENTS; Start 10/24/16 at 15:15; Stop 11/04/16 at 12:19; Status DC Potassium Phosphate 30 mmol/ Sodium Chloride 260 ml @ 42 mls/hr UNSCH PRN IV SEE LABEL COMMENTS; Start 10/24/16 at 15:15 Sodium Chloride 500 ml @ 10 mls/hr Q24H IV Last administered on 10/29/16 20: 54; Start 10/25/16 at 21:00; Stop 10/30/16 at 12:48; Status DC Cefepime HCl/ Sodium Chloride (Maxipime Inj/NS Inj) 100 ml @ 200 mls/hr Q8HR IV Last administered on 11/06/16 05:05; Start 10/30/16 at 14:00; Stop 11/06/16 at 12:00; Status DC Fentanyl Citrate (fentaNYL INJ) 50 mcg Q3H PRN IV PAIN 1-10 Last administered on 11/05/16 05:07; Start 10/30/16 at 15:15; Stop 11/05/16 at 13:47; Status DC Docusate Sodium 100 mg 100 mg Q12H G-TUBE Last administered on 11/03/16 17:00; Start 10/31/16 at 17:00; Stop 11/06/16 at 16:48; Status DC Potassium Chloride 100 ml @ 50 mls/hr Q2H PRN IV For Potassium 2.8 - 3.2 mEq/ L Last administered on 11/20/16 07:31; Start 11/03/16 at 05:15 Potassium Chloride (KCl 20 Meq Premix Inj) 100 ml @ 50 mls/hr Q2H PRN IV For Potassium 2.8 - 3.2 mEq/L Last administered on 11/25/16 05:49; Start 11/03/16 at 05:15 Potassium Bicarb/ Potassium Chloride 50 meq 50 meq UNSCH PRN PO For Potassium 3.3 - 3.5 mEq/L Last administered on 11/22/16 07:07; Start 11/03/16 at 05:15 Potassium Chloride 100 ml @ 25 mls/hr UNSCH PRN IV For Potassium 3.3 - 3.5 mEq /L Last administered on 11/19/16 01:44; Start 11/03/16 at 05:15 Potassium Chloride 100 ml @ 50 mls/hr Q2H PRN IV For Potassium 3.3 - 3.5 mEq/ L Last administered on 11/25/16 08:51; Start 11/03/16 at 05:15 Magnesium Sulfate/ Sodium Chloride (Magnesium Sulfate Inj/NS Inj) 100 ml @ 50 mls/hr UNSCH PRN IV For Magnesium 0.9 - 1.1 mg/dL; Start 11/03/16 at 05:15 Magnesium Oxide 800 mg 800 mg UNSCH PRN PO For Magnesium 1.2 - 1.6 mg/dL; Start 11/03/16 at 05:15 Magnesium Sulfate/ Sodium Chloride (Magnesium Sulfate Inj/NS Inj) 100 ml @ 50 mls/hr UNSCH PRN IV For Magnesium 1.2 - 1.6 mg/dL; Start 11/03/16 at 05:15 Potassium Phosphate 2000 mg 2,000 mg Q4H PRN PO For Phosphorus < 2.5 mg/dL; Start 11/03/16 at 05:15 Sodium Phosphate/ Sodium Chloride (Sodium Phosphate Inj/NS 250 ml Inj) 250 ml @ 42 mls/hr UNSCH PRN IV For Phosphorus < 2.5 mg/dL; Start 11/03/16 at 05:15 Potassium Phosphate (K-Phos) 2,000 mg UNSCH PRN PO/TUBE SEE LABEL COMMENTS; Start 11/03/16 at 05:15 Furosemide 40 mg 40 mg ONCE ONCE IV PUSH Last administered on 11/03/16 18:16; Start 11/03/16 at 18:15; Stop 11/03/16 at 18:16; Status DC Potassium Chloride/Sodium Chloride (KCl Inj/NS Inj) 115 ml @ 38.333 mls/ hr Q3H IV-CENTRAL Last administered on 11/03/16 22:53; Start 11/03/16 at 20:00; Stop 11/04/16 at 01:59; Status DC Labetalol HCl (Trandate) 100 mg Q8H PO Last administered on 11/25/16 11:37; Start 11/03/16 at 20:00 Hydralazine HCl (Apresoline) 50 mg Q12HR PO Last administered on 11/25/16 08: 50; Start 11/03/16 at 19:00 Amlodipine Besylate (Norvasc) 5 mg DAILY PO Last administered on 11/25/16 08: 51; Start 11/04/16 at 09:00 Nystatin (Mycostatin Powder) 1 applic TID TOPICAL Last administered on 12:20; Start 11/06/16 at 09:00 Lactobacillus Acidophilus (Lactinex) 1 tab Q12HR PO Last administered on 08:50; Start 11/06/16 at 21:00 Quetiapine Fumarate (SEROquel) 25 mg BID@09,12 PO Last administered on 11:37; Start 11/07/16 at 09:00 Multi-Ingredient Mouthwash/Gargle (Magic Mouthwash Adult Liq) 5 ml QID SWISH- SWAL Last administered on 11/16/16 13:00; Start 11/06/16 at 18:00; Stop at 17:59; Status DC Docusate Sodium (Colace Liq) 100 mg Q12H PRN G-TUBE constipation; Start at 17:00 Potassium Bicarbonate (Effer-K Eff) 25 meq DAILY PO Last administered on 09:00; Start 11/06/16 at 17:00; Stop 11/09/16 at 16:59; Status DC Diphenhydramine HCl (Benadryl Inj) 25 mg ONCE ONCE IV PUSH Last administered on 11/08/16 01:55; Start 11/08/16 at 01:45; Stop 11/08/16 at 01:46; Status DC Loperamide HCl (Imodium) 2 mg UNSCH PRN PO DIARRHEA Last administered on 21:16; Start 11/09/16 at 09:45 Diphenoxylate HCl/ Atropine (Lomotil Tab) 1 tab Q6H PRN PO severe diarrhea ; Start 11/09/16 at 09:45 Metronidazole (Flagyl) 500 mg Q8H PO Last administered on 11/25/16 08:50; Start 11/09/16 at 16:00 Thrombin (Thrombin Top Soln) 10,000 units STK-MED ONCE .ROUTE ; Start 11/10/16 at 08:31; Stop 11/10/16 at 08:32; Status DC Gelatin (Gelfoam 100 Top) 1 foam STK-MED ONCE .ROUTE ; Start 11/10/16 at 08:31; Stop 11/10/16 at 08:32; Status DC Potassium Bicarb/ Potassium Chloride 50 meq 50 meq NOW ONCE NG Last administered on 11/15/16 20:42; Start 11/15/16 at 20:45; Stop 11/15/16 at 20:46 ; Status DC Potassium Chloride (KCl 40 Meq Premix Inj) 100 ml @ 25 mls/hr Q4H IV Last administered on 11/16/16 01:13; Start 11/15/16 at 21:00; Stop 11/16/16 at 04:59 ; Status DC Sodium Chloride (Sodium Chloride) 2 gm Q8HR PO Last administered on 11/21/16 13:21; Start 11/16/16 at 14:00; Stop 11/21/16 at 17:30; Status DC Diphenhydramine HCl (Benadryl Inj) 50 mg Q6H PRN IV ITCHING Last administered on 11/25/16 12:20; Start 11/16/16 at 23:00 Diphenhydramine HCl (Benadryl Inj) 50 mg STK-MED ONCE .ROUTE ; Start 11/16/16 at 22:55; Stop 11/16/16 at 22:56; Status DC Quetiapine Fumarate (SEROquel) 25 mg HS PO Last administered on 11/24/16 20:19 ; Start 11/20/16 at 21:00 Sodium Chloride (Sodium Chloride) 2 gm BID PO Last administered on 11/23/16 07 :28; Start 11/22/16 at 09:00; Stop 11/23/16 at 11:40; Status DC Potassium Chloride (KCl) 20 meq BID PO Last administered on 11/24/16 20:18; Start 11/23/16 at 09:00; Stop 11/25/16 at 14:47; Status DC Sodium Chloride (Sodium Chloride) 2 gm DAILY PO Last administered on 11/25/16 08:51; Start 11/24/16 at 09:00 Thrombin (Thrombin Top Soln) 10,000 units STK-MED ONCE .ROUTE Last administered on 11/24/16 15:50; Start 11/24/16 at 07:55; Stop 11/24/16 at 07:56 ; Status DC Gelatin (Gelfoam 100 Top) 1 foam STK-MED ONCE .ROUTE Last administered on 15:50; Start 11/24/16 at 07:56; Stop 11/24/16 at 07:57; Status DC Lidocaine/ Epinephrine (Xylocaine-Epi 1%-1:100,000 Inj) 50 ml STK-MED ONCE .ROUTE Last administered on 11/24/16 15:50; Start 11/24/16 at 07:56; Stop at 07:57; Status DC Gentamicin Sulfate (Gentamicin Inj) 240 mg STK-MED ONCE .ROUTE Last administered on 11/24/16 15:50; Start 11/24/16 at 07:56; Stop 11/24/16 at 07:57 ; Status DC Vancomycin HCl 1000 mg 1,000 mg STK-MED ONCE .ROUTE Last administered on 15:40; Start 11/24/16 at 14:41; Stop 11/24/16 at 14:42; Status DC Sodium Chloride (NS 250 ml Inj) 250 ml @ As Directed STK-MED ONCE .ROUTE ; Start 11/24/16 at 14:41; Stop 11/24/16 at 14:42; Status DC Fentanyl Citrate 250 mcg 250 mcg STK-MED ONCE .ROUTE ; Start 11/24/16 at 17:28; Stop 11/24/16 at 17:29; Status DC Potassium Chloride/Sodium Chloride (1/2 NS + KCl 20 Meq Inj) 1,000 ml @ 84 mls/ hr [id number] IV Last administered on 11/24/16 20:52; Start 11/24/16 at 17:45; Stop 11/24/16 at 23:44; Status DC Miscellaneous Information ALL NURSING DEPARTME... 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 ICD Code: I60.8 Status: Acute (2) Hypertension ICD Code: I10 Status: Chronic (3) Major neurocognitive disorder due to vascular disease, without behavioral disturbance, severe ICD Code: F01.50 Status: Acute (4) Septic shock ICD Code: A41.9 Status: Resolved (5) Hydrocephalus ICD Code: G91.9 Status: Acute (6) Intracranial hemorrhage ICD Code: I62.9 Status: Acute (7) Major neurocognitive disorder as late effect of traumatic brain injury with behavioral disturbance ICD Code: S06.9X9S Status: Acute (8) Encephalopathy ICD Code: G93.40 Status: Acute (9) Sepsis ICD Code: A41.9 Status: Resolved (10) Pneumonia ICD Code: J18.9 Status: Acute (11) Protein-calorie malnutrition, mild ICD Code: E44.1 Status: Acute (12) Acute respiratory failure with hypoxia and hypercarbia ICD Code: J96.01 Status: Acute Assessment and Plan Aneurysmal subarachnoid hemorrhage, occurred on 10/05/16: -Appreciate neurosurgery recommendations. Okay for Lovenox per neurosurgery. Continue Keppra for seizure prophylaxis. Encephalopathy: -Secondary to above. Mental status is improving slowly. Acute hypoxic, hypercarbic respiratory failure: -Tracheostomy 10/23/16. Continue supplemental oxygen. DuoNeb as needed, scheduled. Trach management per pulmonology. Septic shock: Resolved. Possible cerebral salt wasting: - Continue Florinef, sodium chloride tablets. Mild acute protein calorie malnutrition -Continue tube feedings. Monitor labs. Pneumonia: - Completed antibiotics. C. difficile colitis: Continue Flagyl. Repeat C. difficile studies are negative. Hyperglycemia of critical illness: - Improved. Hydrocephalus: -Repeat head CT unchanged. [employer] shunt placement today. Hypokalemia -: Improved DVT prophylaxis: SCDs, YOUSIF hose, Lovenox. GI prophylaxis: Protonix. . Problem Qualifiers (1) Hypertension: Qualified Code: I10 - Essential hypertension Sandra Ramos MD November 25, 2016 16:12
--- NOTE | 2016-11-25 17:05 | HHI.PR ---
Subjective Remarks 51 YOWM with TBI,RF,Trach On trach collar Mod amount of trach secretions More awake, strong cough No Fever Rash improved Objective Vital Signs Vital Signs Date Time Temp Pulse Resp B/P Pulse Ox O2 Delivery O2 Flow Rate FiO2 11/25/16 14:00 92 11/25/16 12:00 97.7 100 21 117/78 97 11/25/16 12:00 100 11/25/16 10:00 94 11/25/16 08:00 91 11/25/16 08:00 98.2 92 20 141/80 96 11/25/16 07:08 99 Trach Collar 28 11/25/16 07:00 95 Trach Collar 28 Humidified 11/25/16 06:00 94 11/25/16 04:00 116 11/25/16 04:00 98.5 113 20 138/89 97 11/25/16 02:00 108 11/25/16 00:00 108 11/25/16 00:00 97.0 99 22 155/70 100 11/24/16 22:00 103 11/24/16 21:17 25 11/24/16 20:00 97.5 100 20 150/80 98 11/24/16 20:00 90 11/24/16 19:23 99 Trach Collar 28 11/24/16 19:00 98 Trach Collar 28 Humidified 11/24/16 18:00 90 11/24/16 17:45 85 14 113/67 95 Venturi Mask 35 Trach Collar 11/24/16 17:30 83 16 109/66 95 Venturi Mask 35 Trach Collar 11/24/16 17:15 97.5 85 16 116/67 97 Venturi Mask 35 Trach Collar I/O 11/24/16 11/24/16 11/24/16 11/25/16 11/25/16 11/25/16 07:00 15:00 23:00 07:00 15:00 23:00 Intake Total 30 ml 160 ml 1508 ml 738 ml 1142 ml Output Total 375 ml 850 ml 650 ml 450 ml Balance -345 ml -690 ml 858 ml 738 ml 692 ml IV Total 100 ml 18 ml 495 ml 496 ml Tube Feeding 0 ml 190 ml 243 ml 526 ml Other 30 ml 60 ml 1300 ml 120 ml Output Urine Total 375 ml 850 ml 600 ml 450 ml Estimated Blood Loss 50 ml # Bowel Movements 0 5 0 Result Diagram: 11/25/1642911/25/16429 Objective Remarks GENERAL: WBWN male, on Trach collar SKIN: Warm and dry. HEAD: Normocephalic. EYES: No scleral icterus. No injection or drainage. NECK: Supple, trachea midline. No JVD or lymphadenopathy. Trach collar CARDIOVASCULAR: Regular rate and rhythm without murmurs, gallops, or rubs. RESPIRATORY: Breath sounds equal bilaterally. No accessory muscle use. GASTROINTESTINAL: Abdomen soft, non-tender, nondistended. PEG tube in place MUSCULOSKELETAL: No cyanosis, or edema. BACK: Nontender without obvious deformity. No CVA tenderness. A/P Assessment and Plan RF, s/p Trach Intracranial bleed Hydrocephalous HTN C.diff positive PLAN: Cont Flagyl Trach collar Secretions decreased Benadryl prn for skin rash. Renard Virgen MD November 25, 2016 17:05
[2016-11-25] MEDS: ENOXAPARIN SODIUM 40 MG/0.4 ML SYRINGE SQ SCH (20:46)
[2016-11-25] MEDS: POTASSIUM CHLORIDE 25 MEQ EFFERVESCENT TAB NG SCH (20:47)
[2016-11-26] VITALS (13 sets, daily range): BP systolic 127–155; BP diastolic 69–99; PULSE 96–107; RESP 19–22; TEMP 97.5–98.7; O2SAT 94–98
[2016-11-26] MEDS: metroNIDAZOLE 500 MG TAB PO SCH ×3 (00:27→16:17)
[2016-11-26] MEDS: CHLORHEXIDINE GLUCONATE 2 % 1 PACK (2 CLOTHS) TOP SCH (04:00)
[2016-11-26] MEDS: LABETALOL HCL 100 MG TAB PO SCH ×3 (04:21→20:08)
[2016-11-26] MEDS: diphenhydrAMINE HCL 50 MG/ML VIAL IV PRN ×2 (04:21→20:09)
[2016-11-26] MEDS: NYSTATIN 100,000 U/GM PWD 15 GM BTL TOPICAL SCH ×3 (09:00→18:00)
[2016-11-26] MEDS: ARTIFICIAL TEARS OPTH SOLN 15 ML BTL EACH EYE SCH ×3 (09:00→18:00)
[2016-11-26] MEDS: PRAVASTATIN SOD 40 MG TAB PO SCH (09:00)
[2016-11-26] MEDS: SODIUM CHLORIDE 0.9% FLUSH 10 ML FLUSH IV FLUSH SCH (09:00)
[2016-11-26] MEDS: POTASSIUM CHLORIDE 25 MEQ EFFERVESCENT TAB NG SCH ×2 (09:28→20:09)
[2016-11-26] MEDS: PANTOPRAZOLE SODIUM 40 MG VIAL IV SCH (09:29)
[2016-11-26] MEDS: amLODIPine BESYLATE 5 MG TAB PO SCH (09:29)
[2016-11-26] MEDS: SODIUM CHLORIDE 1 GRAM TAB PO SCH (09:29)
[2016-11-26] MEDS: QUEtiapine FUMARATE 25 MG TAB PO SCH ×3 (09:30→20:08)
[2016-11-26] MEDS: hydrALAZINE HCL 50 MG TAB PO SCH ×2 (09:30→20:11)
[2016-11-26] MEDS: FLUDROCORTISONE ACETATE 0.1 MG TAB PO SCH ×2 (09:30→20:08)
[2016-11-26] MEDS: levETIRAcetam INJ 500 MG in SODIUM CHLORIDE 0.9% INJ 100 ML IV SCH ×2 (09:31→20:08)
[2016-11-26] MEDS: LACTOBACILLUS ACIDOPHILUS TAB PO SCH ×2 (09:31→20:08)
--- NOTE | 2016-11-26 11:59 | HHI.PR ---
Subjective Remarks Patient is very sleepy today. He just got his dose of Seroquel. Per nurse patient is stable and he still following commands. She stated there has been no issues. Patient remains afebrile. Objective Vitals Vital Signs Date Time Temp Pulse Resp B/P Pulse Ox O2 Delivery O2 Flow Rate FiO2 11/26/16 07:00 97 Trach Collar 6.00 28 11/26/16 06:00 100 11/26/16 04:00 100 11/26/16 04:00 97.5 96 22 141/69 96 11/26/16 02:00 100 11/26/16 00:00 100 11/26/16 00:00 103 11/26/16 00:00 98.0 102 21 155/99 96 11/25/16 22:00 100 11/25/16 20:13 94 Trach Collar 28 11/25/16 20:00 96 11/25/16 20:00 98.4 94 22 135/76 96 11/25/16 19:00 97 Trach Collar 28 Humidified 11/25/16 18:00 96 11/25/16 16:00 96 11/25/16 16:00 98.5 96 23 119/74 98 11/25/16 14:00 92 11/25/16 12:00 97.7 100 21 117/78 97 11/25/16 12:00 100 I/O 11/25/16 11/25/16 11/25/16 11/26/16 11/26/16 11/26/16 07:00 15:00 23:00 07:00 15:00 23:00 Intake Total 738 ml 1142 ml 590 ml 361 ml Output Total 450 ml 300 ml 300 ml Balance 738 ml 692 ml 290 ml 61 ml IV Total 495 ml 496 ml 100 ml 100 ml Tube Feeding 243 ml 526 ml 490 ml 261 ml Other 120 ml Output Urine Total 450 ml 300 ml 300 ml # Bowel Movements 5 0 1 1 Result Diagram: 11/25/1642911/25/16429 Objective Remarks General: No acute distress. In soft wrist and mitten restraints. Trach collar. Heart: Regular rate and rhythm. No murmur. Lungs: Clear to auscultation bilaterally. No wheezes, rales, or rhonchi. Abdomen: Soft, nontender, nondistended. Positive bowel sounds. Extremities: No lower extremity edema. SCDs. Psych: Sleeping and while not wake up for me due to medication. Procedures 10/05/16 right frontal twist drill for ventriculostomy placement 10/20/16 arterial line placement 10/23/16 bedside percutaneous tracheostomy under direct bronchoscopic visualization 10/24/16 PEG tube placement at bedside Medications and IVs Current Medications Propofol 100 ml @ As Directed STK-MED ONCE .ROUTE ; Start 10/05/16 at 01:16; Stop 10/05/16 at :; Status DC Cefazolin Sodium/ Dextrose 50 ml @ As Directed STK-MED ONCE .ROUTE ; Start at 01:23; Stop 10/05/16 at 01:24; Status DC Cefazolin Sodium/ Dextrose (Ancef 2 Gm Premix) 50 ml @ 100 mls/hr ONCE STAT IV ; Start 10/05/16 at 01:26; Stop 10/05/16 at 01:55; Status DC Diphtheria/ Tetanus/Acell Pertussis (Boostrix Inj) 0.5 ml ONCE ONCE IM ; Start 10/05/16 at 01:26; Stop 10/05/16 at 01:28; Status DC Nicardipine HCl (Cardene Inj) 25 mg STK-MED ONCE .ROUTE ; Start 10/05/16 at 01:26 ; Stop 10/05/16 at 01:27; Status DC Nicardipine HCl 25 mg 25 mg STK-MED ONCE .ROUTE ; Start 10/05/16 at 01:27; Stop 10/05/16 at 01:28; Status DC Sodium Chloride 1,000 ml @ 0 mls/hr Q0M IV ; Start 10/05/16 at 01:30; Stop at 02:57; Status DC Nicardipine HCl/ Sodium Chloride (Cardene Inj/NS 250 ml Inj) 260 ml @ 0 mls/hr TITRATE ONCE IV Last administered on 10/05/16 02:00; Start 10/05/16 at 02:00; Stop 10/05/16 at 02:01; Status DC Iohexol (Omnipaque 350 Inj) 97 ml STK-MED ONCE IV Last administered on 02:11; Start 10/05/16 at 02:11; Stop 10/05/16 at 02:12; Status DC Etomidate (Amidate Inj) 20 mg STK-MED ONCE .ROUTE ; Start 10/05/16 at 02:13; Stop 10/05/16 at 02:14; Status DC Epinephrine HCl (EPINEPHrine (1:10,000) INJ) 1 mg STK-MED ONCE .ROUTE ; Start at 02:32; Stop 10/05/16 at 02:33; Status DC Atropine Sulfate (Atropine Inj) 1 mg STK-MED ONCE .ROUTE ; Start 10/05/16 at 02: 33; Stop 10/05/16 at 02:34; Status DC Lidocaine HCl 100 mg 100 mg STK-MED ONCE .ROUTE ; Start 10/05/16 at 02:33; Stop 10/05/16 at 02:34; Status DC Sodium Chloride (NS 1000 ml Inj) 1,000 ml @ 84 mls/hr [id number] IV Last administered on 10/14/16 23:55; Start 10/05/16 at 02:31; Stop 10/15/16 at 22:17 ; Status DC Acetaminophen (Tylenol) 650 mg Q6H PRN PO PAIN 1-10 AND/OR FEVER >101F Last administered on 11/24/16 20:17; Start 10/05/16 at 02:45 Morphine Sulfate (Morphine Inj) 2 mg Q2H PRN IV PAIN SCALE 6 TO 10 Last administered on 10/15/16 19:04; Start 10/05/16 at 02:45; Stop 10/22/16 at 06:04 ; Status DC Pantoprazole Sodium (Protonix Inj) 40 mg DAILY IV Last administered on 09:29; Start 10/05/16 at 09:00 Lorazepam (Ativan Inj) 2 mg Q4H PRN IV Agitation/Sedation Last administered on 10/11/16 12:27; Start 10/05/16 at 02:45; Stop 10/18/16 at 14:41; Status DC Artificial Tears (Tears Naturale Opth Soln) 1 drop TID EACH EYE Last administered on 11/26/16 09:00; Start 10/05/16 at 09:00 Ondansetron HCl (Zofran Inj) 4 mg Q6H PRN IV NAUSEA OR VOMITING Last administered on 11/06/16 20:58; Start 10/05/16 at 02:45 Metoclopramide HCl (Reglan Inj) 10 mg Q6H PRN IV NAUSEA OR VOMITING Last administered on 10/13/16 09:48; Start 10/05/16 at 02:45; Stop 10/19/16 at 07:38 ; Status DC Docusate Sodium (Colace) 100 mg Q12H G-TUBE Last administered on 10/30/16 05: 12; Start 10/05/16 at 04:00; Stop 10/31/16 at 16:41; Status DC Albuterol/ Ipratropium (Duoneb Neb) 1 ampule Q2HR NEB PRN INH WHEEZING Last administered on 10/31/16 13:41; Start 10/05/16 at 02:45 Miscellaneous Information 1 [id number] Last administered on 10/05/16 02:45; Start 10/05/16 at 02:45 Chlorhexidine Gluconate (Chlorhexidine 2% Cloth) Taper DAILY@04 TOP Last administered on 11/16/16 03:28; Start 10/05/16 at 04:00; Stop 10/01/17 at 03:59 Chlorhexidine Gluconate 3 pack 3 pack UNSCH PRN TOP HYGIENIC CARE; Start at 02:45 Propofol (Diprivan 1000 Mg/100ml Inj) 100 ml @ 0 mls/hr TITRATE IV Last administered on 10/13/16 16:58; Start 10/05/16 at 02:45; Stop 10/18/16 at 14:41 ; Status DC Nimodipine 60 mg 60 mg Q4HR PO ; Start 10/05/16 at 04:00; Stop 10/05/16 at 04:00; Status DC Potassium Chloride/Sodium Chloride 1,000 ml @ 100 mls/hr Q10H IV ; Start at 02:15; Stop 10/05/16 at 02:56; Status DC Levetriacetam 500 mg/Sodium Chloride 105 ml @ 420 mls/hr Q12HR IV Last administered on 11/26/16 09:31; Start 10/05/16 at 09:00 Nicardipine HCl/ Sodium Chloride (Cardene Inj/NS 250 ml Inj) 260 ml @ 0 mls/hr TITRATE IV Last administered on 10/18/16 11:23; Start 10/05/16 at 02:45; Stop 11/05/16 at 13:47; Status DC Labetalol HCl (Trandate Inj) 10 mg Q4H PRN IV PUSH SBP>140, DBP>90 Last administered on 11/03/16 05:45; Start 10/05/16 at 02:45; Stop 11/05/16 at 13:47; Status DC Nimodipine (Nimotop) 60 mg Q4HR PO Last administered on 10/17/16 07:16; Start 10/05/16 at 04:00; Stop 10/17/16 at 10:55; Status DC Pravastatin Sodium (Pravachol) 40 mg DAILY PO Last administered on 11/26/16 09 :00; Start 10/05/16 at 09:00 Iohexol (Omnipaque 350 Inj) 75 ml STK-MED ONCE IV Last administered on 04:15; Start 10/05/16 at 04:15; Stop 10/05/16 at 04:16; Status DC Verapamil HCl (Isoptin Inj) 10 mg STK-MED ONCE .ROUTE Last administered on 13:04; Start 10/05/16 at 13:04; Stop 10/05/16 at 13:05; Status DC Heparin Sodium (Porcine) (*HEPARIN INJ Periprocedural ONLY) 10,000 units STK- MED ONCE .ROUTE Last administered on 10/05/16 14:16; Start 10/05/16 at 15:05; Stop 10/05/16 at 15:06; Status DC Iodixanol (Visipaque 320 Inj) 120 ml STK-MED ONCE I-ARTERIAL Last administered on 10/05/16 16:18; Start 10/05/16 at 16:18; Stop 10/05/16 at 16:19; Status DC Fentanyl Citrate 100 mcg 100 mcg STK-MED ONCE .ROUTE ; Start 10/05/16 at 16:49; Stop 10/05/16 at 16:50; Status DC Fentanyl Citrate (fentaNYL DRIP) 250 ml @ 0 mls/hr TITRATE IV Last administered on 10/17/16 00:29; Start 10/05/16 at 22:15; Stop 10/17/16 at 11:30 ; Status DC Norepinephrine Bitartrate 4 mg 4 mg STK-MED ONCE .ROUTE ; Start 10/06/16 at 04:03 ; Stop 10/06/16 at 04:04; Status DC Sodium Chloride (NS 1000 ml Inj) 999 ml @ 0 mls/hr BOLUS ONCE IV Last administered on 10/06/16 06:38; Start 10/06/16 at 06:45; Stop 10/06/16 at 06:46; Status DC Sodium Chloride (NS Flush) See Protocol DAILY IV FLUSH Last administered on 09:00; Start 10/07/16 at 09:00 Sodium Chloride (NS Flush) See Protocol UNSCH PRN IV FLUSH SEE PROTOCOL TABLE; Start 10/06/16 at 12:00 Heparin Sodium (Porcine) (Heparin Central Flush) See Protocol DAILY IV FLUSH Last administered on 10/13/16 09:00; Start 10/07/16 at 09:00; Stop 10/18/16 at 14:41; Status DC Heparin Sodium (Porcine) (Heparin Central Flush) See Protocol UNSCH PRN IV FLUSH SEE PROTOCOL TABLE Last administered on 10/11/16 08:00; Start 10/06/16 at 12:00; Stop 10/18/16 at 14:41; Status DC Sodium Chloride (NS Flush) UNSCH PRN IV FLUSH SEE PROTOCOL TABLE Last administered on 11/21/16 19:37; Start 10/06/16 at 12:00 Norepinephrine Bitartrate 4 mg 4 mg STK-MED ONCE .ROUTE ; Start 10/06/16 at 17:30 ; Stop 10/06/16 at 17:31; Status DC Norepinephrine Bitartrate 4 mg/ Sodium Chloride 254 ml @ 0 mls/hr TITRATE IV Last administered on 10/28/16 20:14; Start 10/06/16 at 18:00 Potassium Chloride 100 ml @ 50 mls/hr Q2H PRN IV For Potassium 2.8 - 3.2 mEq/L ; Start 10/07/16 at 08:00; Stop 10/12/16 at 13:11; Status DC Potassium Chloride 100 ml @ 50 mls/hr Q2H PRN IV For Potassium 2.8 - 3.2 mEq/L ; Start 10/07/16 at 08:00; Stop 10/12/16 at 13:11; Status DC Potassium Chloride 100 ml @ 25 mls/hr UNSCH PRN IV For Potassium 3.3 - 3.5 mEq /L Last administered on 10/07/16 15:56; Start 10/07/16 at 08:00; Stop 10/12/16 at 13:11; Status DC Potassium Chloride 100 ml @ 50 mls/hr Q2H PRN IV For Potassium 3.3 - 3.5 mEq/ L Last administered on 10/11/16 07:41; Start 10/07/16 at 08:00; Stop 10/12/16 at 13:11; Status DC Magnesium Sulfate/ Sodium Chloride (Magnesium Sulfate Inj/NS Inj) 100 ml @ 50 mls/hr UNSCH PRN IV For Magnesium 0.9 - 1.1 mg/dL; Start 10/07/16 at 08:00; Stop 10/12/16 at 13:11; Status DC Magnesium Oxide 800 mg 800 mg UNSCH PRN PO For Magnesium 1.2 - 1.6 mg/dL; Start 10/07/16 at 08:00; Stop 10/12/16 at 13:11; Status DC Magnesium Sulfate/ Sodium Chloride (Magnesium Sulfate Inj/NS Inj) 100 ml @ 50 mls/hr UNSCH PRN IV For Magnesium 1.2 - 1.6 mg/dL; Start 10/07/16 at 08:00; Stop 10/12/16 at 13:11; Status DC Potassium Phosphate 2000 mg 2,000 mg Q4H PRN PO For Phosphorus < 2.5 mg/dL; Start 10/07/16 at 08:00; Stop 10/12/16 at 13:11; Status DC Sodium Phosphate/ Sodium Chloride (Sodium Phosphate Inj/NS 250 ml Inj) 250 ml @ 42 mls/hr UNSCH PRN IV For Phosphorus < 2.5 mg/dL; Start 10/07/16 at 08:00; Stop 10/12/16 at 13:11; Status DC Potassium Phosphate 2000 mg 2,000 mg UNSCH PRN PO/TUBE SEE LABEL COMMENTS Last administered on 10/07/16 15:56; Start 10/07/16 at 08:00; Stop 10/12/16 at 13:11; Status DC Potassium Phosphate/Sodium Chloride (Potassium Phosphate Inj/NS 250 ml Inj) 260 ml @ 42 mls/hr UNSCH PRN IV SEE LABEL COMMENTS Last administered on 10/08/16 11:23; Start 10/07/16 at 08:00; Stop 10/12/16 at 13:11; Status DC Clonidine (Catapres) 0.1 mg Q8H PRN NG SBP>170, DBP>90 Last administered on 00:28; Start 10/09/16 at 16:15; Stop 10/18/16 at 14:41; Status DC Polyethylene Glycol (Miralax) 17 gm DAILY PO Last administered on 10/28/16 09: 09; Start 10/10/16 at 14:00; Stop 10/30/16 at 15:12; Status DC Lactulose (Lactulose Liq) 30 ml DAILY PO Last administered on 10/28/16 09:09; Start 10/10/16 at 14:00; Stop 10/30/16 at 15:12; Status DC Metoprolol Tartrate 25 mg 25 mg Q6H PO Last administered on 10/18/16 09:36; Start 10/10/16 at 14:00; Stop 10/18/16 at 14:41; Status DC Labetalol HCl 500 mg/Sodium Chloride 250 ml @ 0 mls/hr TITRATE IV ; Start at 17:00; Stop 10/18/16 at 14:41; Status DC Sodium Chloride (NS 250 ml Inj) 250 ml @ As Directed STK-MED ONCE .ROUTE ; Start 10/11/16 at 02:29; Stop 10/11/16 at 02:30; Status DC Nicardipine HCl (Cardene Inj) 25 mg STK-MED ONCE .ROUTE ; Start 10/11/16 at 02: 29; Stop 10/11/16 at 02:30; Status DC Tamsulosin HCl (Flomax) 0.4 mg Q12HR PO Last administered on 10/17/16 07:16; Start 10/11/16 at 09:00; Stop 10/18/16 at 14:41; Status DC Epinephrine HCl (EPINEPHrine (1:10,000) INJ) 1 mg STK-MED ONCE .ROUTE ; Start at 09:51; Stop 10/11/16 at 09:52; Status DC Atropine Sulfate (Atropine Inj) 1 mg STK-MED ONCE .ROUTE ; Start 10/11/16 at 09: 51; Stop 10/11/16 at 09:52; Status DC Lidocaine HCl (Xylocaine 2% Inj) 100 mg STK-MED ONCE .ROUTE ; Start 10/11/16 at 09:51; Stop 10/11/16 at 09:52; Status DC Iohexol (Omnipaque 350 Inj) 100 ml STK-MED ONCE IV Last administered on 10:56; Start 10/11/16 at 10:56; Stop 10/11/16 at 10:57; Status DC Norepinephrine Bitartrate 4 mg 4 mg STK-MED ONCE .ROUTE ; Start 10/11/16 at 20: 25; Stop 10/11/16 at 20:26; Status DC Aztreonam 2000 mg/ Sodium Chloride 100 ml @ 200 mls/hr Q8H IV Last administered on 10/19/16 01:39; Start 10/12/16 at 02:00; Stop 10/19/16 at 07:38 ; Status DC Pharmacy Profile Note 0 ml @ 0 mls/hr UNSCH OTHER ; Start 10/12/16 at 02:15; Stop 10/13/16 at 17:17; Status DC Metronidazole 100 ml @ 100 mls/hr Q6H IV Last administered on 10/19/16 03:33 ; Start 10/12/16 at 03:00; Stop 10/19/16 at 07:39; Status DC Vancomycin HCl 2500 mg/Sodium Chloride 525 ml @ 250 mls/hr ONCE ONCE IV Last administered on 10/12/16 04:00; Start 10/12/16 at 04:00; Stop 10/12/16 at 06:05 ; Status DC Vancomycin HCl/ Sodium Chloride (Vancomycin Inj/ NS 500 ml Inj) 520 ml @ 250 mls/hr ONCE ONCE IV Last administered on 10/13/16 11:30; Start 10/13/16 at 11 :00; Stop 10/13/16 at 17:17; Status DC Epinephrine HCl (EPINEPHrine (1:10,000) INJ) 1 mg STK-MED ONCE .ROUTE ; Start at 03:26; Stop 10/14/16 at 03:27; Status DC Atropine Sulfate (Atropine Inj) 1 mg STK-MED ONCE .ROUTE ; Start 10/14/16 at 03: 26; Stop 10/14/16 at 03:27; Status DC Lidocaine HCl 100 mg 100 mg STK-MED ONCE .ROUTE ; Start 10/14/16 at 03:27; Stop 10/14/16 at 03:28; Status DC Potassium Chloride 100 ml @ 50 mls/hr Q2H PRN IV For Potassium 2.8 - 3.2 mEq/ L Last administered on 10/30/16 05:12; Start 10/14/16 at 16:00; Stop 10/30/16 at 15:11; Status DC Potassium Chloride (KCl 20 Meq Premix Inj) 100 ml @ 50 mls/hr Q2H PRN IV For Potassium 2.8 - 3.2 mEq/L Last administered on 10/30/16 13:40; Start 10/14/16 at 16:00; Stop 10/30/16 at 15:11; Status DC Potassium Bicarb/ Potassium Chloride 50 meq 50 meq UNSCH PRN PO For Potassium 3.3 - 3.5 mEq/L Last administered on 10/30/16 05:12; Start 10/14/16 at 16:00; Stop 10/30/16 at 15:11; Status DC Potassium Chloride 100 ml @ 25 mls/hr UNSCH PRN IV For Potassium 3.3 - 3.5 mEq /L Last administered on 10/18/16 06:50; Start 10/14/16 at 16:00; Stop 10/30/16 at 15:11; Status DC Potassium Chloride 100 ml @ 50 mls/hr Q2H PRN IV For Potassium 3.3 - 3.5 mEq/ L Last administered on 10/27/16 07:41; Start 10/14/16 at 16:00; Stop 10/30/16 at 15:11; Status DC Magnesium Sulfate/ Sodium Chloride (Magnesium Sulfate Inj/NS Inj) 100 ml @ 50 mls/hr UNSCH PRN IV For Magnesium 0.9 - 1.1 mg/dL; Start 10/14/16 at 16:00; Stop 10/30/16 at 15:11; Status DC Magnesium Oxide 800 mg 800 mg UNSCH PRN PO For Magnesium 1.2 - 1.6 mg/dL; Start 10/14/16 at 16:00; Stop 10/30/16 at 15:11; Status DC Magnesium Sulfate/ Sodium Chloride (Magnesium Sulfate Inj/NS Inj) 100 ml @ 50 mls/hr UNSCH PRN IV For Magnesium 1.2 - 1.6 mg/dL; Start 10/14/16 at 16:00; Stop 10/30/16 at 15:11; Status DC Potassium Phosphate 2000 mg 2,000 mg Q4H PRN PO For Phosphorus < 2.5 mg/dL Last administered on 10/17/16 02:00; Start 10/14/16 at 16:00; Stop 10/30/16 at 15:11; Status DC Sodium Phosphate/ Sodium Chloride (Sodium Phosphate Inj/NS 250 ml Inj) 250 ml @ 42 mls/hr UNSCH PRN IV For Phosphorus < 2.5 mg/dL Last administered on 20:31; Start 10/14/16 at 16:00; Stop 10/30/16 at 15:11; Status DC Potassium Phosphate 2000 mg 2,000 mg UNSCH PRN PO/TUBE SEE LABEL COMMENTS Last administered on 10/18/16 06:51; Start 10/14/16 at 16:00; Stop 10/30/16 at 15:11 ; Status DC Potassium Phosphate/Sodium Chloride (Potassium Phosphate Inj/NS 250 ml Inj) 260 ml @ 42 mls/hr UNSCH PRN IV SEE LABEL COMMENTS; Start 10/14/16 at 16:00; Stop 10/30/16 at 15:11; Status DC Verapamil HCl (Isoptin Inj) 15 mg STK-MED ONCE .ROUTE Last administered on 10/15 12:55; Start 10/15/16 at 12:55; Stop 10/15/16 at 12:56; Status DC Verapamil HCl (Isoptin Inj) 5 mg STK-MED ONCE .ROUTE Last administered on 13:33; Start 10/15/16 at 13:33; Stop 10/15/16 at 13:34; Status DC Iodixanol 75 ml 75 ml STK-MED ONCE I-ARTERIAL Last administered on 10/15/16 13 :52; Start 10/15/16 at 13:52; Stop 10/15/16 at 13:53; Status DC Sodium Chloride (NS 250 ml Inj) 250 ml @ As Directed STK-MED ONCE .ROUTE ; Start 10/15/16 at 20:40; Stop 10/15/16 at 20:41; Status DC Nicardipine HCl 25 mg 25 mg STK-MED ONCE .ROUTE ; Start 10/15/16 at 20:40; Stop 10/15/16 at 20:41; Status DC Sodium Chloride (NS 250 ml Inj) 250 ml @ As Directed STK-MED ONCE .ROUTE ; Start 10/15/16 at 22:51; Stop 10/15/16 at 22:52; Status DC Nicardipine HCl 25 mg 25 mg STK-MED ONCE .ROUTE ; Start 10/15/16 at 22:51; Stop 10/15/16 at 22:52; Status DC Sodium Chloride (NS 250 ml Inj) 250 ml @ As Directed STK-MED ONCE .ROUTE ; Start 10/16/16 at 01:03; Stop 10/16/16 at 01:04; Status DC Nicardipine HCl 25 mg 25 mg STK-MED ONCE .ROUTE ; Start 10/16/16 at 01:03; Stop 10/16/16 at 01:05; Status DC Sodium Chloride (NS 250 ml Inj) 250 ml @ As Directed STK-MED ONCE .ROUTE ; Start 10/16/16 at 01:47; Stop 10/16/16 at 01:48; Status DC Nicardipine HCl (Cardene Inj) 25 mg STK-MED ONCE .ROUTE ; Start 10/16/16 at 01: 47; Stop 10/16/16 at 01:48; Status DC Nicardipine HCl (Cardene Inj) 25 mg STK-MED ONCE .ROUTE ; Start 10/16/16 at 03: 51; Stop 10/16/16 at 03:52; Status DC Epinephrine HCl (EPINEPHrine (1:10,000) INJ) 1 mg STK-MED ONCE .ROUTE ; Start at 03:57; Stop 10/16/16 at 03:58; Status DC Atropine Sulfate (Atropine Inj) 1 mg STK-MED ONCE .ROUTE ; Start 10/16/16 at 03: 57; Stop 10/16/16 at 03:58; Status DC Lidocaine HCl (Xylocaine 2% Inj) 100 mg STK-MED ONCE .ROUTE ; Start 10/16/16 at 03:57; Stop 10/16/16 at 03:58; Status DC Diphenhydramine HCl (Benadryl Inj) 25 mg Q6H PRN IV RASH Last administered on t 03:12; Start 10/16/16 at 08:15; Stop 10/18/16 at 14:41; Status DC Nimodipine (Nimotop) 30 mg Q2H PO Last administered on 10/26/16 06:53; Start 10/17/16 at 11:00; Stop 10/26/16 at 08:46; Status DC Iohexol 70 ml 70 ml STK-MED ONCE IV Last administered on 10/19/16 14:36; Start 10/19/16 at 14:36; Stop 10/19/16 at 14:37; Status DC Phenylephrine HCl/ Sodium Chloride (Neosynephrine Inj/NS 500 ml Inj) 500 ml @ 0 mls/hr TITRATE IV Last administered on 10/20/16 16:29; Start 10/19/16 at 16:30 ; Stop 10/23/16 at 10:42; Status DC Alteplase, Recombinant (Cathflo Activase Inj) 2 mg UNSCH PRN IV FLUSH PICC LINE OCCLUSION Last administered on 11/01/16 21:47; Start 10/19/16 at 16:15; Stop 11/05/16 at 13:47; Status DC Verapamil HCl (Isoptin Inj) 5 mg STK-MED ONCE .ROUTE Last administered on 17:20; Start 10/19/16 at 16:05; Stop 10/19/16 at 16:06; Status DC Midazolam HCl (Versed Inj) 2 mg STK-MED ONCE .ROUTE Last administered on 17:18; Start 10/19/16 at 17:18; Stop 10/19/16 at 17:19; Status DC Verapamil HCl (Isoptin Inj) 5 mg STK-MED ONCE .ROUTE Last administered on 17:27; Start 10/19/16 at 17:27; Stop 10/19/16 at 17:28; Status DC Iodixanol (Visipaque 320 Inj) 100 ml STK-MED ONCE I-ARTERIAL Last administered on 10/19/16 18:08; Start 10/19/16 at 18:08; Stop 10/19/16 at 18:09; Status DC Diphenhydramine HCl 6.25 mg 6.25 mg Q4H PRN IV PUSH itching, rash Last administered on 11/04/16 20:45; Start 10/19/16 at 19:15; Stop 11/05/16 at 13:47; Status DC Vancomycin HCl 1250 mg/Sodium Chloride 262.5 ml @ 250 mls/hr ONCE ONCE IV ; Start 10/20/16 at 12:30; Stop 10/20/16 at 12:33; Status DC Cefepime HCl 2000 mg/Sodium Chloride 100 ml @ 200 mls/hr Q8H IV Last administered on 10/29/16 21:00; Start 10/20/16 at 13:00; Stop 10/29/16 at 23:59 ; Status DC Metronidazole 100 ml @ 100 mls/hr Q6H IV Last administered on 10/23/16 08:13 ; Start 10/20/16 at 14:00; Stop 10/23/16 at 10:43; Status DC Vancomycin HCl 1250 mg/Sodium Chloride 262.5 ml @ 250 mls/hr ONCE ONCE IV Last administered on 10/20/16 15:00; Start 10/20/16 at 15:00; Stop 10/20/16 at 16:02; Status DC Vasopressin/ Dextrose (Pitressin Inj/ D5W 100 ml Inj) 100 ml @ 6 mls/hr [id number] IV Last administered on 10/23/16 04:16; Start 10/20/16 at 15:23; Stop at 10:43; Status DC Dextrose (D50w (Vial) Inj) 25 ml UNSCH PRN IV PUSH HYPOGLYCEMIA-SEE COMMENTS; Start 10/20/16 at 17:15; Stop 10/30/16 at 15:07; Status DC Insulin Human Regular 1 1 Q6HR SQ Last administered on 10/23/16 05:39; Start 10/20/16 at 18:00; Stop 10/30/16 at 15:07; Status DC Sodium Chloride 500 ml @ 500 mls/hr BOLUS ONCE IV Last administered on 18:27; Start 10/20/16 at 17:15; Stop 10/20/16 at 18:14; Status DC Sodium Chloride 1,000 ml @ 999 mls/hr BOLUS ONCE IV Last administered on 10/21 10:01; Start 10/21/16 at 08:30; Stop 10/21/16 at 09:30; Status DC Sodium Chloride (NS 1000 ml Inj) 1,000 ml @ 60 mls/hr [id number] IV Last administered on 11/18/16 00:21; Start 10/21/16 at 08:30; Stop 11/18/16 at 08:54 ; Status DC Sodium Chloride 2 gm 2 gm Q8HR PO Last administered on 10/22/16 04:56; Start 10/21/16 at 08:30; Stop 10/22/16 at 10:01; Status DC Sodium Chloride (NS 500 ml Inj) 500 ml @ 500 mls/hr BOLUS ONCE IV Last administered on 10/21/16 20:06; Start 10/21/16 at 19:15; Stop 10/21/16 at 20:14 ; Status DC Fludrocortisone Acetate 0.1 mg 0.1 mg Q12HR PO Last administered on 10/22/16 09:13; Start 10/22/16 at 09:00; Stop 10/22/16 at 16:26; Status DC Sodium Chloride 500 ml @ 20 mls/hr ONCE ONCE IV Last administered on 06:15; Start 10/22/16 at 06:15; Stop 10/23/16 at 07:14; Status DC Sodium Chloride (NS 1000 ml Inj) 1,000 ml @ 999 mls/hr BOLUS ONCE IV Last administered on 10/22/16 06:15; Start 10/22/16 at 06:15; Stop 10/22/16 at 07:15 ; Status DC Sodium Chloride (Sodium Chloride) 3 gm Q8HR PO Last administered on 11/16/16 05:48; Start 10/22/16 at 14:00; Stop 11/16/16 at 09:16; Status DC Fludrocortisone Acetate 0.2 mg 0.2 mg Q12HR PO Last administered on 11/26/16 09:30; Start 10/22/16 at 21:00 Sodium Chloride 1,000 ml @ 999 mls/hr BOLUS ONCE IV Last administered on 10/22 16:49; Start 10/22/16 at 16:30; Stop 10/22/16 at 17:30; Status DC Sodium Chloride 500 ml @ 40 mls/hr CONTINUOUS IV Last administered on 18:50; Start 10/22/16 at 16:30; Stop 10/23/16 at 19:54; Status DC Sodium Chloride (NS 500 ml Inj) 500 ml @ 500 mls/hr BOLUS ONCE IV Last administered on 10/23/16 06:46; Start 10/23/16 at 06:45; Stop 10/23/16 at 07:44 ; Status DC Cisatracurium Besylate 20 mg 20 mg STAT ONCE IV Last administered on 11:35; Start 10/23/16 at 10:30; Stop 10/23/16 at 11:01; Status DC Propofol (Diprivan 1000 Mg/100ml Inj) 100 ml @ 0 mls/hr TITRATE IV ; Start 10/23 at 10:30; Stop 10/25/16 at 11:27; Status DC Fentanyl Citrate (fentaNYL INJ) 100 mcg STAT ONCE IV PUSH Last administered on 10/23/16 11:35; Start 10/23/16 at 10:30; Stop 10/23/16 at 11:02; Status DC Enoxaparin Sodium 40 mg 40 mg Q24H SQ Last administered on 11/25/16 20:46; Start 10/23/16 at 21:00 Sodium Chloride (Sodium Chloride 3% Inj) 500 ml @ 20 mls/hr CONTINUOUS IV Last administered on 10/24/16 10:32; Start 10/23/16 at 20:00; Stop 10/25/16 at 20:01; Status DC Propofol 130 mg 130 mg STK-MED ONCE IV ; Start 10/24/16 at 08:53; Stop 10/24/16 at 10:11; Status DC Potassium Chloride 100 ml @ 50 mls/hr Q2H PRN IV For Potassium 2.8 - 3.2 mEq/ L Last administered on 11/03/16 05:17; Start 10/24/16 at 15:15; Stop 11/04/16 at 12:19; Status DC Potassium Chloride (KCl 20 Meq Premix Inj) 100 ml @ 50 mls/hr Q2H PRN IV For Potassium 2.8 - 3.2 mEq/L Last administered on 10/31/16 16:39; Start 10/24/16 at 15:15; Stop 11/04/16 at 12:19; Status DC Potassium Bicarb/ Potassium Chloride 50 meq 50 meq UNSCH PRN PO For Potassium 3.3 - 3.5 mEq/L; Start 10/24/16 at 15:15; Stop 11/04/16 at 12:19; Status DC Potassium Chloride 100 ml @ 25 mls/hr UNSCH PRN IV For Potassium 3.3 - 3.5 mEq /L Last administered on 10/26/16t 21:47; Start 10/24/16 at 15:15; Stop 11/04/16 at 12:19; Status DC Potassium Chloride 100 ml @ 50 mls/hr Q2H PRN IV For Potassium 3.3 - 3.5 mEq/L ; Start 10/24/16 at 15:15; Stop 11/04/16 at 12:19; Status DC Magnesium Sulfate/ Sodium Chloride (Magnesium Sulfate Inj/NS Inj) 100 ml @ 50 mls/hr UNSCH PRN IV For Magnesium 0.9 - 1.1 mg/dL; Start 10/24/16 at 15:15; Stop 11/04/16 at 12:19; Status DC Magnesium Oxide 800 mg 800 mg UNSCH PRN PO For Magnesium 1.2 - 1.6 mg/dL; Start 10/24/16 at 15:15; Stop 11/04/16 at 12:19; Status DC Magnesium Sulfate/ Sodium Chloride (Magnesium Sulfate Inj/NS Inj) 100 ml @ 50 mls/hr UNSCH PRN IV For Magnesium 1.2 - 1.6 mg/dL; Start 10/24/16 at 15:15; Stop 11/04/16 at 12:19; Status DC Potassium Phosphate 2000 mg 2,000 mg Q4H PRN PO For Phosphorus < 2.5 mg/dL; Start 10/24/16 at 15:15; Stop 11/04/16 at 12:19; Status DC Sodium Phosphate/ Sodium Chloride (Sodium Phosphate Inj/NS 250 ml Inj) 250 ml @ 42 mls/hr UNSCH PRN IV For Phosphorus < 2.5 mg/dL; Start 10/24/16 at 15:15; Stop 11/04/16 at 12:19; Status DC Potassium Phosphate 2000 mg 2,000 mg UNSCH PRN PO/TUBE SEE LABEL COMMENTS; Start 10/24/16 at 15:15; Stop 11/04/16 at 12:19; Status DC Potassium Phosphate 30 mmol/ Sodium Chloride 260 ml @ 42 mls/hr UNSCH PRN IV SEE LABEL COMMENTS; Start 10/24/16 at 15:15 Sodium Chloride 500 ml @ 10 mls/hr Q24H IV Last administered on 10/29/16 20: 54; Start 10/25/16 at 21:00; Stop 10/30/16 at 12:48; Status DC Cefepime HCl/ Sodium Chloride (Maxipime Inj/NS Inj) 100 ml @ 200 mls/hr Q8HR IV Last administered on 11/06/16 05:05; Start 10/30/16 at 14:00; Stop 11/06/16 at 12:00; Status DC Fentanyl Citrate (fentaNYL INJ) 50 mcg Q3H PRN IV PAIN 1-10 Last administered on 11/05/16 05:07; Start 10/30/16 at 15:15; Stop 11/05/16 at 13:47; Status DC Docusate Sodium 100 mg 100 mg Q12H G-TUBE Last administered on 11/03/16 17:00; Start 10/31/16 at 17:00; Stop 11/06/16 at 16:48; Status DC Potassium Chloride 100 ml @ 50 mls/hr Q2H PRN IV For Potassium 2.8 - 3.2 mEq/ L Last administered on 11/20/16 07:31; Start 11/03/16 at 05:15 Potassium Chloride (KCl 20 Meq Premix Inj) 100 ml @ 50 mls/hr Q2H PRN IV For Potassium 2.8 - 3.2 mEq/L Last administered on 11/25/16 05:49; Start 11/03/16 at 05:15 Potassium Bicarb/ Potassium Chloride 50 meq 50 meq UNSCH PRN PO For Potassium 3.3 - 3.5 mEq/L Last administered on 11/22/16 07:07; Start 11/03/16 at 05:15 Potassium Chloride 100 ml @ 25 mls/hr UNSCH PRN IV For Potassium 3.3 - 3.5 mEq /L Last administered on 11/19/16 01:44; Start 11/03/16 at 05:15 Potassium Chloride 100 ml @ 50 mls/hr Q2H PRN IV For Potassium 3.3 - 3.5 mEq/ L Last administered on 11/25/16 08:51; Start 11/03/16 at 05:15 Magnesium Sulfate/ Sodium Chloride (Magnesium Sulfate Inj/NS Inj) 100 ml @ 50 mls/hr UNSCH PRN IV For Magnesium 0.9 - 1.1 mg/dL; Start 11/03/16 at 05:15 Magnesium Oxide 800 mg 800 mg UNSCH PRN PO For Magnesium 1.2 - 1.6 mg/dL; Start 11/03/16 at 05:15 Magnesium Sulfate/ Sodium Chloride (Magnesium Sulfate Inj/NS Inj) 100 ml @ 50 mls/hr UNSCH PRN IV For Magnesium 1.2 - 1.6 mg/dL; Start 11/03/16 at 05:15 Potassium Phosphate 2000 mg 2,000 mg Q4H PRN PO For Phosphorus < 2.5 mg/dL; Start 11/03/16 at 05:15 Sodium Phosphate/ Sodium Chloride (Sodium Phosphate Inj/NS 250 ml Inj) 250 ml @ 42 mls/hr UNSCH PRN IV For Phosphorus < 2.5 mg/dL; Start 11/03/16 at 05:15 Potassium Phosphate (K-Phos) 2,000 mg UNSCH PRN PO/TUBE SEE LABEL COMMENTS; Start 11/03/16 at 05:15 Furosemide 40 mg 40 mg ONCE ONCE IV PUSH Last administered on 11/03/16 18:16; Start 11/03/16 at 18:15; Stop 11/03/16 at 18:16; Status DC Potassium Chloride/Sodium Chloride (KCl Inj/NS Inj) 115 ml @ 38.333 mls/ hr Q3H IV-CENTRAL Last administered on 11/03/16 22:53; Start 11/03/16 at 20:00; Stop 11/04/16 at 01:59; Status DC Labetalol HCl (Trandate) 100 mg Q8H PO Last administered on 11/26/16 11:16; Start 11/03/16 at 20:00 Hydralazine HCl (Apresoline) 50 mg Q12HR PO Last administered on 11/26/16 09: 30; Start 11/03/16 at 19:00 Amlodipine Besylate (Norvasc) 5 mg DAILY PO Last administered on 11/26/16 09: 29; Start 11/04/16 at 09:00 Nystatin (Mycostatin Powder) 1 applic TID TOPICAL Last administered on 09:00; Start 11/06/16 at 09:00 Lactobacillus Acidophilus (Lactinex) 1 tab Q12HR PO Last administered on 09:31; Start 11/06/16 at 21:00 Quetiapine Fumarate (SEROquel) 25 mg BID@09,12 PO Last administered on 11:16; Start 11/07/16 at 09:00 Multi-Ingredient Mouthwash/Gargle (Magic Mouthwash Adult Liq) 5 ml QID SWISH- SWAL Last administered on 11/16/16 13:00; Start 11/06/16 at 18:00; Stop at 17:59; Status DC Docusate Sodium (Colace Liq) 100 mg Q12H PRN G-TUBE constipation; Start at 17:00 Potassium Bicarbonate (Effer-K Eff) 25 meq DAILY PO Last administered on 09:00; Start 11/06/16 at 17:00; Stop 11/09/16 at 16:59; Status DC Diphenhydramine HCl (Benadryl Inj) 25 mg ONCE ONCE IV PUSH Last administered on 11/08/16 01:55; Start 11/08/16 at 01:45; Stop 11/08/16 at 01:46; Status DC Loperamide HCl (Imodium) 2 mg UNSCH PRN PO DIARRHEA Last administered on 21:16; Start 11/09/16 at 09:45 Diphenoxylate HCl/ Atropine (Lomotil Tab) 1 tab Q6H PRN PO severe diarrhea ; Start 11/09/16 at 09:45 Metronidazole (Flagyl) 500 mg Q8H PO Last administered on 11/26/16 09:30; Start 11/09/16 at 16:00 Thrombin (Thrombin Top Soln) 10,000 units STK-MED ONCE .ROUTE ; Start 11/10/16 at 08:31; Stop 11/10/16 at 08:32; Status DC Gelatin (Gelfoam 100 Top) 1 foam STK-MED ONCE .ROUTE ; Start 11/10/16 at 08:31; Stop 11/10/16 at 08:32; Status DC Potassium Bicarb/ Potassium Chloride 50 meq 50 meq NOW ONCE NG Last administered on 11/15/16 20:42; Start 11/15/16 at 20:45; Stop 11/15/16 at 20:46 ; Status DC Potassium Chloride (KCl 40 Meq Premix Inj) 100 ml @ 25 mls/hr Q4H IV Last administered on 11/16/16 01:13; Start 11/15/16 at 21:00; Stop 11/16/16 at 04:59 ; Status DC Sodium Chloride (Sodium Chloride) 2 gm Q8HR PO Last administered on 11/21/16 13:21; Start 11/16/16 at 14:00; Stop 11/21/16 at 17:30; Status DC Diphenhydramine HCl (Benadryl Inj) 50 mg Q6H PRN IV ITCHING Last administered on 11/26/16 04:21; Start 11/16/16 at 23:00 Diphenhydramine HCl (Benadryl Inj) 50 mg STK-MED ONCE .ROUTE ; Start 11/16/16 at 22:55; Stop 11/16/16 at 22:56; Status DC Quetiapine Fumarate (SEROquel) 25 mg HS PO Last administered on 11/25/16 20:46 ; Start 11/20/16 at 21:00 Sodium Chloride (Sodium Chloride) 2 gm BID PO Last administered on 11/23/16 07 :28; Start 11/22/16 at 09:00; Stop 11/23/16 at 11:40; Status DC Potassium Chloride (KCl) 20 meq BID PO Last administered on 11/24/16 20:18; Start 11/23/16 at 09:00; Stop 11/25/16 at 14:47; Status DC Sodium Chloride (Sodium Chloride) 2 gm DAILY PO Last administered on 11/26/16 09:29; Start 11/24/16 at 09:00 Thrombin (Thrombin Top Soln) 10,000 units STK-MED ONCE .ROUTE Last administered on 11/24/16 15:50; Start 11/24/16 at 07:55; Stop 11/24/16 at 07:56 ; Status DC Gelatin (Gelfoam 100 Top) 1 foam STK-MED ONCE .ROUTE Last administered on 15:50; Start 11/24/16 at 07:56; Stop 11/24/16 at 07:57; Status DC Lidocaine/ Epinephrine (Xylocaine-Epi 1%-1:100,000 Inj) 50 ml STK-MED ONCE .ROUTE Last administered on 11/24/16 15:50; Start 11/24/16 at 07:56; Stop at 07:57; Status DC Gentamicin Sulfate (Gentamicin Inj) 240 mg STK-MED ONCE .ROUTE Last administered on 11/24/16 15:50; Start 11/24/16 at 07:56; Stop 11/24/16 at 07:57 ; Status DC Vancomycin HCl 1000 mg 1,000 mg STK-MED ONCE .ROUTE Last administered on 15:40; Start 11/24/16 at 14:41; Stop 11/24/16 at 14:42; Status DC Sodium Chloride (NS 250 ml Inj) 250 ml @ As Directed STK-MED ONCE .ROUTE ; Start 11/24/16 at 14:41; Stop 11/24/16 at 14:42; Status DC Fentanyl Citrate 250 mcg 250 mcg STK-MED ONCE .ROUTE ; Start 11/24/16 at 17:28; Stop 11/24/16 at 17:29; Status DC Potassium Chloride/Sodium Chloride (1/2 NS + KCl 20 Meq Inj) 1,000 ml @ 84 mls/ hr [id number] IV Last administered on 11/24/16 20:52; Start 11/24/16 at 17:45; Stop 11/24/16 at 23:44; Status DC Miscellaneous Information ALL NURSING DEPARTME... UNSCH PRN .XX SEE LABEL COMMENTS; Start 11/24/16 at 18:15; Stop 11/25/16 at 18:14; Status DC Potassium Bicarb/ Potassium Chloride (K-Lyte Cl Eff) 25 meq Q12HR NG Last administered on 11/26/16 09:28; Start 11/25/16 at 21:00 A/P Problem List: (1) 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 ICD Code: I60.8 Status: Acute (2) Hypertension ICD Code: I10 Status: Chronic (3) Major neurocognitive disorder due to vascular disease, without behavioral disturbance, severe ICD Code: F01.50 Status: Acute (4) Septic shock ICD Code: A41.9 Status: Resolved (5) Hydrocephalus ICD Code: G91.9 Status: Acute (6) Intracranial hemorrhage ICD Code: I62.9 Status: Acute (7) Major neurocognitive disorder as late effect of traumatic brain injury with behavioral disturbance ICD Code: S06.9X9S Status: Acute (8) Encephalopathy ICD Code: G93.40 Status: Acute (9) Sepsis ICD Code: A41.9 Status: Resolved (10) Pneumonia ICD Code: J18.9 Status: Acute (11) Protein-calorie malnutrition, mild ICD Code: E44.1 Status: Acute (12) Acute respiratory failure with hypoxia and hypercarbia ICD Code: J96.01 Status: Acute Assessment and Plan Aneurysmal subarachnoid hemorrhage, occurred on 10/05/16: -Appreciate neurosurgery recommendations. Okay for Lovenox per neurosurgery. Continue Keppra for seizure prophylaxis. -Status post ACID CORRECTION HAND shunt on 11/24/2016 Encephalopathy: -Secondary to above. Mental status is improving slowly. Acute hypoxic, hypercarbic respiratory failure: -Tracheostomy 10/23/16. Continue supplemental oxygen. DuoNeb as needed, scheduled. Trach management per pulmonology. Septic shock: Resolved. Possible cerebral salt wasting: - Continue Florinef, sodium chloride tablets. Mild acute protein calorie malnutrition -Continue tube feedings. Monitor labs. Pneumonia: - Completed antibiotics. C. difficile colitis: Continue Flagyl. Repeat C. difficile studies are negative. Hyperglycemia of critical illness: - Improved. Hydrocephalus: -Repeat head CT unchanged. ACID CORRECTION HAND shunt placement today. Hypokalemia -: Improved DVT prophylaxis: SCDs, YOUSIF hose, Lovenox. GI prophylaxis: Protonix. . Problem Qualifiers (1) Hypertension: Qualified Code: I10 - Essential hypertension Sandra Ramos MD November 26, 2016 11:59
--- NOTE | 2016-11-26 16:16 | HHI.PR ---
Subjective Remarks 51 YOWM with TBI,RF,Trach On trach collar Mod amount of trach secretions More awake, strong cough No Fever Had seraquil, sleeping Objective Vital Signs Vital Signs Date Time Temp Pulse Resp B/P Pulse Ox O2 Delivery O2 Flow Rate FiO2 11/26/16 14:00 100 11/26/16 12:00 96 11/26/16 12:00 98.3 96 22 127/74 94 11/26/16 10:00 107 11/26/16 08:00 104 11/26/16 08:00 98.7 104 20 140/83 94 11/26/16 07:00 Trach Collar 6.00 28 11/26/16 07:00 97 Trach Collar 6.00 28 11/26/16 06:00 100 11/26/16 04:00 100 11/26/16 04:00 97.5 96 22 141/69 96 11/26/16 02:00 100 11/26/16 00:00 100 11/26/16 00:00 103 11/26/16 00:00 98.0 102 21 155/99 96 11/25/16 22:00 100 11/25/16 20:13 94 Trach Collar 28 11/25/16 20:00 96 11/25/16 20:00 98.4 94 22 135/76 96 11/25/16 19:00 97 Trach Collar 28 Humidified 11/25/16 18:00 96 I/O 11/25/16 11/25/16 11/25/16 11/26/16 11/26/16 11/26/16 07:00 15:00 23:00 07:00 15:00 23:00 Intake Total 738 ml 1142 ml 590 ml 361 ml 550 ml Output Total 450 ml 300 ml 300 ml 675 ml Balance 738 ml 692 ml 290 ml 61 ml -125 ml IV Total 495 ml 496 ml 100 ml 100 ml 100 ml Tube Feeding 243 ml 526 ml 490 ml 261 ml 330 ml Tube Irrigant 120 ml Other 120 ml Output Urine Total 450 ml 300 ml 300 ml 675 ml # Bowel Movements 5 0 1 1 0 Result Diagram: 11/25/1642911/25/16429 Objective Remarks GENERAL: WBWN male, on Trach collar SKIN: Warm and dry. HEAD: Normocephalic. EYES: No scleral icterus. No injection or drainage. NECK: Supple, trachea midline. No JVD or lymphadenopathy. Trach collar CARDIOVASCULAR: Regular rate and rhythm without murmurs, gallops, or rubs. RESPIRATORY: Breath sounds equal bilaterally. No accessory muscle use. GASTROINTESTINAL: Abdomen soft, non-tender, nondistended. PEG tube in place MUSCULOSKELETAL: No cyanosis, or edema. BACK: Nontender without obvious deformity. No CVA tenderness. A/P Assessment and Plan RF, s/p Trach Intracranial bleed Hydrocephalous HTN C.diff positive PLAN: Cont Flagyl Trach collar Secretions decreased Benadryl prn for skin rash. Renard Virgen MD November 26, 2016 16:16
[2016-11-26] MEDS: ENOXAPARIN SODIUM 40 MG/0.4 ML SYRINGE SQ SCH (20:08)
--- NOTE | 2016-11-26 21:57 | HHI.NSPN ---
History Chief Complaint: s/p aneurysm coiling. Interval History 51-year-old male admitted with positive subarachnoid hemorrhage. Possible seizure activity. Intubated in the emergency room. 10/05/16: Endovascular coiling 10/07/16 rinse intubated and sedated. Ventriculostomy in place 10/09/16: Remains intubated and sedated. Increased agitation with attempts at sedation vacation 10/17/16: Pupils 2 mm. Intubated and sedated. Somewhat more responsive with decreased sedation. External ventricular drain and closed to reservoir again today. 10/21/16: Ventricular drain removed 11/24/16: Ventricular peritoneal shunt placed Exam Results Vital Signs Date Time Temp Pulse Resp B/P Pulse Ox O2 Delivery O2 Flow Rate FiO2 11/26/16 18:00 105 11/26/16 16:00 97.7 20 141/82 97 11/26/16 07:00 Trach Collar 6.00 28 Intake and Output 11/25/16 11/25/16 11/26/16 08:00 16:00 00:00 Intake Total 738 ml 1142 ml 590 ml Output Total 450 ml 300 ml Balance 738 ml 692 ml 290 ml Physical Examination HEENT: Right parietal surgical wounds with intact dressings, shadowing noted on the inferior dressing, well-approximated with steri-strips, no active drainage, erythema or streaking evident Resp: CTAB w/o W/R/R, equal excursion, non-laboured, trached & on trach collar. CV: S1S2 w/RRR w/o M/G/R, radial & pedal pulses 2+ bilaterally, cap refill < 2 sec. Monitor is sinus rhythm w/o any ectopy noted GI: Abdomen soft, nontender, positive bowel sounds, PEG tube enteral feeds. RUQ surgical incision with intact dressing, no shadowing noted. : Condom cath to BSD. Neuro: Awake & alert Does mouth a few words in response to questions . Indicates no headache or abdominal pain. Follows simple commands Moving all extremities Good muscle strength in all extremities Medical Decision Making Impression and Plan Impression: 1. 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 Neurologic exam is stable following INVESTMENT REPRESENTATIVE shunt placement 11/24/16. Postoperative CT scan reveals decreasing size of ventricles. Plan: Discussed with the patient's in the intensive surgical care unit today. He is stable following shunt placement. Continue therapy. He is stable for transfer from the intensive surgical care unit from a neurosurgical standpoint. Gino Mace MD November 26, 2016 21:57
[2016-11-27] VITALS (14 sets, daily range): BP systolic 127–149; BP diastolic 68–84; PULSE 98–114; RESP 19–28; TEMP 98.2–99; O2SAT 93–99
[2016-11-27] MEDS: metroNIDAZOLE 500 MG TAB PO SCH ×4 (00:29→23:25)
[2016-11-27] MEDS: LABETALOL HCL 100 MG TAB PO SCH ×3 (04:00→19:41)
[2016-11-27] MEDS: CHLORHEXIDINE GLUCONATE 2 % 1 PACK (2 CLOTHS) TOP SCH (04:00)
[2016-11-27 04:43] LABS: HEMATOCRIT 32.4 % (39.0-51.0); HEMOGLOBIN 10.3 GM/DL (13.0-17.0); MEAN CELL VOLUME 87.4 FL (80.0-100.0); MEAN CORPUSCULAR HEMOGLOBIN 27.9 PG (27.0-34.0); MEAN CORPUSCULAR HGB CONC 31.9 % (32.0-36.0); MEAN PLATELET VOLUME 9.2 FL (7.0-11.0); PLATELET COUNT 261 TH/MM3 (150-450); RED BLOOD COUNT 3.71 MIL/MM3 (4.50-5.90); RED CELL DISTRIBUTION WIDTH 15.1 % (11.6-17.2)
[2016-11-27 04:53] LABS: CALCIUM 8.6 MG/DL (8.5-10.1); CREATININE 0.68 MG/DL (0.60-1.30)
[2016-11-27] MEDS: LACTOBACILLUS ACIDOPHILUS TAB PO SCH ×2 (08:38→19:42)
[2016-11-27] MEDS: POTASSIUM CHLOR 20 MEQ PREMIX 100 ML IV PRN (08:38)
[2016-11-27] MEDS: DOCUSATE SODIUM 100 MG/10 ML UDC G-TUBE PRN (08:39)
[2016-11-27] MEDS: diphenhydrAMINE HCL 50 MG/ML VIAL IV PRN ×2 (08:39→20:11)
[2016-11-27] MEDS: FLUDROCORTISONE ACETATE 0.1 MG TAB PO SCH ×2 (08:39→19:41)
[2016-11-27] MEDS: amLODIPine BESYLATE 5 MG TAB PO SCH (08:39)
[2016-11-27] MEDS: hydrALAZINE HCL 50 MG TAB PO SCH ×2 (08:39→19:42)
[2016-11-27] MEDS: NYSTATIN 100,000 U/GM PWD 15 GM BTL TOPICAL SCH ×3 (08:40→18:12)
[2016-11-27] MEDS: ARTIFICIAL TEARS OPTH SOLN 15 ML BTL EACH EYE SCH ×3 (09:00→18:13)
[2016-11-27] MEDS: PANTOPRAZOLE SODIUM 40 MG VIAL IV SCH (09:00)
[2016-11-27] MEDS: POTASSIUM CHLORIDE 25 MEQ EFFERVESCENT TAB NG SCH ×2 (09:00→19:40)
[2016-11-27] MEDS: SODIUM CHLORIDE 1 GRAM TAB PO SCH (09:00)
[2016-11-27] MEDS: PRAVASTATIN SOD 40 MG TAB PO SCH (09:00)
[2016-11-27] MEDS: SODIUM CHLORIDE 0.9% FLUSH 10 ML FLUSH IV FLUSH SCH (09:00)
[2016-11-27] MEDS: QUEtiapine FUMARATE 25 MG TAB PO SCH ×3 (09:00→19:41)
--- NOTE | 2016-11-27 14:28 | HHI.PR ---
Subjective Remarks Follow-up for subarachnoid hemorrhage Patient has no complaints. He denies any pain or shortness of breathing. Per nurse patient does not have any diarrhea. Patient's nurse is at the bedside. He had no acute events. Objective Vitals Vital Signs Date Time Temp Pulse Resp B/P Pulse Ox O2 Delivery O2 Flow Rate FiO2 11/27/16 07:00 98 Trach Collar 6.00 28 11/27/16 06:00 113 11/27/16 04:00 98.7 113 25 149/68 98 11/27/16 04:00 113 11/27/16 02:45 96 Trach Collar 6.00 28 11/27/16 00:00 98 11/27/16 00:00 98.4 98 19 141/84 99 11/26/16 22:00 103 11/26/16 20:00 96 Trach Collar 6.00 28 11/26/16 20:00 105 11/26/16 20:00 98.5 102 19 152/94 98 11/26/16 18:00 105 11/26/16 16:00 97.7 100 20 141/82 97 11/26/16 16:00 100 I/O 11/26/16 11/26/16 11/26/16 11/27/16 11/27/16 11/27/16 07:00 15:00 23:00 07:00 15:00 23:00 Intake Total 361 ml 550 ml 501 ml 350 ml Output Total 300 ml 675 ml 700 ml 1000 ml Balance 61 ml -125 ml -199 ml -650 ml IV Total 100 ml 100 ml 101 ml 0 ml Tube Feeding 261 ml 330 ml 400 ml 350 ml Tube Irrigant 120 ml Output Urine Total 300 ml 675 ml 700 ml 1000 ml # Bowel Movements 1 0 Result Diagram: 11/27/16 0413 11/27/16 0413 Objective Remarks General: No acute distress. In soft wrist and mitten restraints. Trach collar. Heart: Regular rate and rhythm. No murmur. Lungs: Clear to auscultation bilaterally. No wheezes, rales, or rhonchi. Abdomen: Soft, nontender, nondistended. Positive bowel sounds. Extremities: No lower extremity edema. SCDs. Psych: Patient is awake and very alert. Procedures 10/05/16 right frontal twist drill for ventriculostomy placement 10/20/16 arterial line placement 10/23/16 bedside percutaneous tracheostomy under direct bronchoscopic visualization 10/24/16 PEG tube placement at bedside Medications and IVs Current Medications Propofol 100 ml @ As Directed STK-MED ONCE .ROUTE ; Start 10/05/16 at 01:16; Stop 10/05/16 at :17; Status DC Cefazolin Sodium/ Dextrose 50 ml @ As Directed STK-MED ONCE .ROUTE ; Start at 01:23; Stop 10/05/16 at 01:24; Status DC Cefazolin Sodium/ Dextrose (Ancef 2 Gm Premix) 50 ml @ 100 mls/hr ONCE STAT IV ; Start 10/05/16 at 01:26; Stop 10/05/16 at 01:55; Status DC Diphtheria/ Tetanus/Acell Pertussis (Boostrix Inj) 0.5 ml ONCE ONCE IM ; Start 10/05/16 at 01:26; Stop 10/05/16 at 01:28; Status DC Nicardipine HCl (Cardene Inj) 25 mg STK-MED ONCE .ROUTE ; Start 10/05/16 at 01:26 ; Stop 10/05/16 at 01:27; Status DC Nicardipine HCl 25 mg 25 mg STK-MED ONCE .ROUTE ; Start 10/05/16 at 01:27; Stop 10/05/16 at 01:28; Status DC Sodium Chloride 1,000 ml @ 0 mls/hr Q0M IV ; Start 10/05/16 at 01:30; Stop at 02:57; Status DC Nicardipine HCl/ Sodium Chloride (Cardene Inj/NS 250 ml Inj) 260 ml @ 0 mls/hr TITRATE ONCE IV Last administered on 10/05/16 02:00; Start 10/05/16 at 02:00; Stop 10/05/16 at 02:01; Status DC Iohexol (Omnipaque 350 Inj) 97 ml STK-MED ONCE IV Last administered on 02:11; Start 10/05/16 at 02:11; Stop 10/05/16 at 02:12; Status DC Etomidate (Amidate Inj) 20 mg STK-MED ONCE .ROUTE ; Start 10/05/16 at 02:13; Stop 10/05/16 at 02:14; Status DC Epinephrine HCl (EPINEPHrine (1:10,000) INJ) 1 mg STK-MED ONCE .ROUTE ; Start at 02:32; Stop 10/05/16 at 02:33; Status DC Atropine Sulfate (Atropine Inj) 1 mg STK-MED ONCE .ROUTE ; Start 10/05/16 at 02: 33; Stop 10/05/16 at 02:34; Status DC Lidocaine HCl 100 mg 100 mg STK-MED ONCE .ROUTE ; Start 10/05/16 at 02:33; Stop 10/05/16 at 02:34; Status DC Sodium Chloride (NS 1000 ml Inj) 1,000 ml @ 84 mls/hr [id number] IV Last administered on 10/14/16 23:55; Start 10/05/16 at 02:31; Stop 10/15/16 at 22:17 ; Status DC Acetaminophen (Tylenol) 650 mg Q6H PRN PO PAIN 1-10 AND/OR FEVER >101F Last administered on 11/24/16 20:17; Start 10/05/16 at 02:45 Morphine Sulfate (Morphine Inj) 2 mg Q2H PRN IV PAIN SCALE 6 TO 10 Last administered on 10/15/16 19:04; Start 10/05/16 at 02:45; Stop 10/22/16 at 06:04 ; Status DC Pantoprazole Sodium (Protonix Inj) 40 mg DAILY IV Last administered on 09:00; Start 10/05/16 at 09:00 Lorazepam (Ativan Inj) 2 mg Q4H PRN IV Agitation/Sedation Last administered on 10/11/16 12:27; Start 10/05/16 at 02:45; Stop 10/18/16 at 14:41; Status DC Artificial Tears (Tears Naturale Opth Soln) 1 drop TID EACH EYE Last administered on 11/27/16 09:00; Start 10/05/16 at 09:00 Ondansetron HCl (Zofran Inj) 4 mg Q6H PRN IV NAUSEA OR VOMITING Last administered on 11/06/16 20:58; Start 10/05/16 at 02:45 Metoclopramide HCl (Reglan Inj) 10 mg Q6H PRN IV NAUSEA OR VOMITING Last administered on 10/13/16 09:48; Start 10/05/16 at 02:45; Stop 10/19/16 at 07:38 ; Status DC Docusate Sodium (Colace) 100 mg Q12H G-TUBE Last administered on 10/30/16 05: 12; Start 10/05/16 at 04:00; Stop 10/31/16 at 16:41; Status DC Albuterol/ Ipratropium (Duoneb Neb) 1 ampule Q2HR NEB PRN INH WHEEZING Last administered on 10/31/16 13:41; Start 10/05/16 at 02:45 Miscellaneous Information 1 [id number] Last administered on 10/05/16 02:45; Start 10/05/16 at 02:45 Chlorhexidine Gluconate (Chlorhexidine 2% Cloth) Taper DAILY@04 TOP Last administered on 11/16/16 03:28; Start 10/05/16 at 04:00; Stop 10/01/17 at 03:59 Chlorhexidine Gluconate 3 pack 3 pack UNSCH PRN TOP HYGIENIC CARE; Start at 02:45 Propofol (Diprivan 1000 Mg/100ml Inj) 100 ml @ 0 mls/hr TITRATE IV Last administered on 10/13/16 16:58; Start 10/05/16 at 02:45; Stop 10/18/16 at 14:41 ; Status DC Nimodipine 60 mg 60 mg Q4HR PO ; Start 10/05/16 at 04:00; Stop 10/05/16 at 04:00; Status DC Potassium Chloride/Sodium Chloride 1,000 ml @ 100 mls/hr Q10H IV ; Start at 02:15; Stop 10/05/16 at 02:56; Status DC Levetriacetam 500 mg/Sodium Chloride 105 ml @ 420 mls/hr Q12HR IV Last administered on 11/26/16 20:08; Start 10/05/16 at 09:00; Stop 11/26/16 at 22:02 ; Status DC Nicardipine HCl/ Sodium Chloride (Cardene Inj/NS 250 ml Inj) 260 ml @ 0 mls/hr TITRATE IV Last administered on 10/18/16 11:23; Start 10/05/16 at 02:45; Stop 11/05/16 at 13:47; Status DC Labetalol HCl (Trandate Inj) 10 mg Q4H PRN IV PUSH SBP>140, DBP>90 Last administered on 11/03/16 05:45; Start 10/05/16 at 02:45; Stop 11/05/16 at 13:47; Status DC Nimodipine (Nimotop) 60 mg Q4HR PO Last administered on 10/17/16 07:16; Start 10/05/16 at 04:00; Stop 10/17/16 at 10:55; Status DC Pravastatin Sodium (Pravachol) 40 mg DAILY PO Last administered on 11/27/16 09 :00; Start 10/05/16 at 09:00 Iohexol (Omnipaque 350 Inj) 75 ml STK-MED ONCE IV Last administered on 04:15; Start 10/05/16 at 04:15; Stop 10/05/16 at 04:16; Status DC Verapamil HCl (Isoptin Inj) 10 mg STK-MED ONCE .ROUTE Last administered on 13:04; Start 10/05/16 at 13:04; Stop 10/05/16 at 13:05; Status DC Heparin Sodium (Porcine) (*HEPARIN INJ Periprocedural ONLY) 10,000 units STK- MED ONCE .ROUTE Last administered on 10/05/16 14:16; Start 10/05/16 at 15:05; Stop 10/05/16 at 15:06; Status DC Iodixanol (Visipaque 320 Inj) 120 ml STK-MED ONCE I-ARTERIAL Last administered on 10/05/16 16:18; Start 10/05/16 at 16:18; Stop 10/05/16 at 16:19; Status DC Fentanyl Citrate 100 mcg 100 mcg STK-MED ONCE .ROUTE ; Start 10/05/16 at 16:49; Stop 10/05/16 at 16:50; Status DC Fentanyl Citrate (fentaNYL DRIP) 250 ml @ 0 mls/hr TITRATE IV Last administered on 10/17/16 00:29; Start 10/05/16 at 22:15; Stop 10/17/16 at 11:30 ; Status DC Norepinephrine Bitartrate 4 mg 4 mg STK-MED ONCE .ROUTE ; Start 10/06/16 at 04:03 ; Stop 10/06/16 at 04:04; Status DC Sodium Chloride (NS 1000 ml Inj) 999 ml @ 0 mls/hr BOLUS ONCE IV Last administered on 10/06/16 06:38; Start 10/06/16 at 06:45; Stop 10/06/16 at 06:46; Status DC Sodium Chloride (NS Flush) See Protocol DAILY IV FLUSH Last administered on 09:00; Start 10/07/16 at 09:00 Sodium Chloride (NS Flush) See Protocol UNSCH PRN IV FLUSH SEE PROTOCOL TABLE; Start 10/06/16 at 12:00 Heparin Sodium (Porcine) (Heparin Central Flush) See Protocol DAILY IV FLUSH Last administered on 10/13/16 09:00; Start 10/07/16 at 09:00; Stop 10/18/16 at 14:41; Status DC Heparin Sodium (Porcine) (Heparin Central Flush) See Protocol UNSCH PRN IV FLUSH SEE PROTOCOL TABLE Last administered on 10/11/16 08:00; Start 10/06/16 at 12:00; Stop 10/18/16 at 14:41; Status DC Sodium Chloride (NS Flush) UNSCH PRN IV FLUSH SEE PROTOCOL TABLE Last administered on 11/21/16 19:37; Start 10/06/16 at 12:00 Norepinephrine Bitartrate 4 mg 4 mg STK-MED ONCE .ROUTE ; Start 10/06/16 at 17:30 ; Stop 10/06/16 at 17:31; Status DC Norepinephrine Bitartrate 4 mg/ Sodium Chloride 254 ml @ 0 mls/hr TITRATE IV Last administered on 10/28/16 20:14; Start 10/06/16 at 18:00; Stop 11/26/16 at 22:03; Status DC Potassium Chloride 100 ml @ 50 mls/hr Q2H PRN IV For Potassium 2.8 - 3.2 mEq/L ; Start 10/07/16 at 08:00; Stop 10/12/16 at 13:11; Status DC Potassium Chloride 100 ml @ 50 mls/hr Q2H PRN IV For Potassium 2.8 - 3.2 mEq/L ; Start 10/07/16 at 08:00; Stop 10/12/16 at 13:11; Status DC Potassium Chloride 100 ml @ 25 mls/hr UNSCH PRN IV For Potassium 3.3 - 3.5 mEq /L Last administered on 10/07/16 15:56; Start 10/07/16 at 08:00; Stop 10/12/16 at 13:11; Status DC Potassium Chloride 100 ml @ 50 mls/hr Q2H PRN IV For Potassium 3.3 - 3.5 mEq/ L Last administered on 10/11/16 07:41; Start 10/07/16 at 08:00; Stop 10/12/16 at 13:11; Status DC Magnesium Sulfate/ Sodium Chloride (Magnesium Sulfate Inj/NS Inj) 100 ml @ 50 mls/hr UNSCH PRN IV For Magnesium 0.9 - 1.1 mg/dL; Start 10/07/16 at 08:00; Stop 10/12/16 at 13:11; Status DC Magnesium Oxide 800 mg 800 mg UNSCH PRN PO For Magnesium 1.2 - 1.6 mg/dL; Start 10/07/16 at 08:00; Stop 10/12/16 at 13:11; Status DC Magnesium Sulfate/ Sodium Chloride (Magnesium Sulfate Inj/NS Inj) 100 ml @ 50 mls/hr UNSCH PRN IV For Magnesium 1.2 - 1.6 mg/dL; Start 10/07/16 at 08:00; Stop 10/12/16 at 13:11; Status DC Potassium Phosphate 2000 mg 2,000 mg Q4H PRN PO For Phosphorus < 2.5 mg/dL; Start 10/07/16 at 08:00; Stop 10/12/16 at 13:11; Status DC Sodium Phosphate/ Sodium Chloride (Sodium Phosphate Inj/NS 250 ml Inj) 250 ml @ 42 mls/hr UNSCH PRN IV For Phosphorus < 2.5 mg/dL; Start 10/07/16 at 08:00; Stop 10/12/16 at 13:11; Status DC Potassium Phosphate 2000 mg 2,000 mg UNSCH PRN PO/TUBE SEE LABEL COMMENTS Last administered on 10/07/16 15:56; Start 10/07/16 at 08:00; Stop 10/12/16 at 13:11; Status DC Potassium Phosphate/Sodium Chloride (Potassium Phosphate Inj/NS 250 ml Inj) 260 ml @ 42 mls/hr UNSCH PRN IV SEE LABEL COMMENTS Last administered on 10/08/16 11:23; Start 10/07/16 at 08:00; Stop 10/12/16 at 13:11; Status DC Clonidine (Catapres) 0.1 mg Q8H PRN NG SBP>170, DBP>90 Last administered on 00:28; Start 10/09/16 at 16:15; Stop 10/18/16 at 14:41; Status DC Polyethylene Glycol (Miralax) 17 gm DAILY PO Last administered on 10/28/16 09: 09; Start 10/10/16 at 14:00; Stop 10/30/16 at 15:12; Status DC Lactulose (Lactulose Liq) 30 ml DAILY PO Last administered on 10/28/16 09:09; Start 10/10/16 at 14:00; Stop 10/30/16 at 15:12; Status DC Metoprolol Tartrate 25 mg 25 mg Q6H PO Last administered on 10/18/16 09:36; Start 10/10/16 at 14:00; Stop 10/18/16 at 14:41; Status DC Labetalol HCl 500 mg/Sodium Chloride 250 ml @ 0 mls/hr TITRATE IV ; Start at 17:00; Stop 10/18/16 at 14:41; Status DC Sodium Chloride (NS 250 ml Inj) 250 ml @ As Directed STK-MED ONCE .ROUTE ; Start 10/11/16 at 02:29; Stop 10/11/16 at 02:30; Status DC Nicardipine HCl (Cardene Inj) 25 mg STK-MED ONCE .ROUTE ; Start 10/11/16 at 02: 29; Stop 10/11/16 at 02:30; Status DC Tamsulosin HCl (Flomax) 0.4 mg Q12HR PO Last administered on 10/17/16 07:16; Start 10/11/16 at 09:00; Stop 10/18/16 at 14:41; Status DC Epinephrine HCl (EPINEPHrine (1:10,000) INJ) 1 mg STK-MED ONCE .ROUTE ; Start at 09:51; Stop 10/11/16 at 09:52; Status DC Atropine Sulfate (Atropine Inj) 1 mg STK-MED ONCE .ROUTE ; Start 10/11/16 at 09: 51; Stop 10/11/16 at 09:52; Status DC Lidocaine HCl (Xylocaine 2% Inj) 100 mg STK-MED ONCE .ROUTE ; Start 10/11/16 at 09:51; Stop 10/11/16 at 09:52; Status DC Iohexol (Omnipaque 350 Inj) 100 ml STK-MED ONCE IV Last administered on 10:56; Start 10/11/16 at 10:56; Stop 10/11/16 at 10:57; Status DC Norepinephrine Bitartrate 4 mg 4 mg STK-MED ONCE .ROUTE ; Start 10/11/16 at 20: 25; Stop 10/11/16 at 20:26; Status DC Aztreonam 2000 mg/ Sodium Chloride 100 ml @ 200 mls/hr Q8H IV Last administered on 10/19/16 01:39; Start 10/12/16 at 02:00; Stop 10/19/16 at 07:38 ; Status DC Pharmacy Profile Note 0 ml @ 0 mls/hr UNSCH OTHER ; Start 10/12/16 at 02:15; Stop 10/13/16 at 17:17; Status DC Metronidazole 100 ml @ 100 mls/hr Q6H IV Last administered on 10/19/16 03:33 ; Start 10/12/16 at 03:00; Stop 10/19/16 at 07:39; Status DC Vancomycin HCl 2500 mg/Sodium Chloride 525 ml @ 250 mls/hr ONCE ONCE IV Last administered on 10/12/16 04:00; Start 10/12/16 at 04:00; Stop 10/12/16 at 06:05 ; Status DC Vancomycin HCl/ Sodium Chloride (Vancomycin Inj/ NS 500 ml Inj) 520 ml @ 250 mls/hr ONCE ONCE IV Last administered on 10/13/16 11:30; Start 10/13/16 at 11 :00; Stop 10/13/16 at 17:17; Status DC Epinephrine HCl (EPINEPHrine (1:10,000) INJ) 1 mg STK-MED ONCE .ROUTE ; Start at 03:26; Stop 10/14/16 at 03:27; Status DC Atropine Sulfate (Atropine Inj) 1 mg STK-MED ONCE .ROUTE ; Start 10/14/16 at 03: 26; Stop 10/14/16 at 03:27; Status DC Lidocaine HCl 100 mg 100 mg STK-MED ONCE .ROUTE ; Start 10/14/16 at 03:27; Stop 10/14/16 at 03:28; Status DC Potassium Chloride 100 ml @ 50 mls/hr Q2H PRN IV For Potassium 2.8 - 3.2 mEq/ L Last administered on 10/30/16 05:12; Start 10/14/16 at 16:00; Stop 10/30/16 at 15:11; Status DC Potassium Chloride (KCl 20 Meq Premix Inj) 100 ml @ 50 mls/hr Q2H PRN IV For Potassium 2.8 - 3.2 mEq/L Last administered on 10/30/16 13:40; Start 10/14/16 at 16:00; Stop 10/30/16 at 15:11; Status DC Potassium Bicarb/ Potassium Chloride 50 meq 50 meq UNSCH PRN PO For Potassium 3.3 - 3.5 mEq/L Last administered on 10/30/16 05:12; Start 10/14/16 at 16:00; Stop 10/30/16 at 15:11; Status DC Potassium Chloride 100 ml @ 25 mls/hr UNSCH PRN IV For Potassium 3.3 - 3.5 mEq /L Last administered on 10/18/16 06:50; Start 10/14/16 at 16:00; Stop 10/30/16 at 15:11; Status DC Potassium Chloride 100 ml @ 50 mls/hr Q2H PRN IV For Potassium 3.3 - 3.5 mEq/ L Last administered on 10/27/16 07:41; Start 10/14/16 at 16:00; Stop 10/30/16 at 15:11; Status DC Magnesium Sulfate/ Sodium Chloride (Magnesium Sulfate Inj/NS Inj) 100 ml @ 50 mls/hr UNSCH PRN IV For Magnesium 0.9 - 1.1 mg/dL; Start 10/14/16 at 16:00; Stop 10/30/16 at 15:11; Status DC Magnesium Oxide 800 mg 800 mg UNSCH PRN PO For Magnesium 1.2 - 1.6 mg/dL; Start 10/14/16 at 16:00; Stop 10/30/16 at 15:11; Status DC Magnesium Sulfate/ Sodium Chloride (Magnesium Sulfate Inj/NS Inj) 100 ml @ 50 mls/hr UNSCH PRN IV For Magnesium 1.2 - 1.6 mg/dL; Start 10/14/16 at 16:00; Stop 10/30/16 at 15:11; Status DC Potassium Phosphate 2000 mg 2,000 mg Q4H PRN PO For Phosphorus < 2.5 mg/dL Last administered on 10/17/16 02:00; Start 10/14/16 at 16:00; Stop 10/30/16 at 15:11; Status DC Sodium Phosphate/ Sodium Chloride (Sodium Phosphate Inj/NS 250 ml Inj) 250 ml @ 42 mls/hr UNSCH PRN IV For Phosphorus < 2.5 mg/dL Last administered on 20:31; Start 10/14/16 at 16:00; Stop 10/30/16 at 15:11; Status DC Potassium Phosphate 2000 mg 2,000 mg UNSCH PRN PO/TUBE SEE LABEL COMMENTS Last administered on 10/18/16 06:51; Start 10/14/16 at 16:00; Stop 10/30/16 at 15:11 ; Status DC Potassium Phosphate/Sodium Chloride (Potassium Phosphate Inj/NS 250 ml Inj) 260 ml @ 42 mls/hr UNSCH PRN IV SEE LABEL COMMENTS; Start 10/14/16 at 16:00; Stop 10/30/16 at 15:11; Status DC Verapamil HCl (Isoptin Inj) 15 mg STK-MED ONCE .ROUTE Last administered on 10/15 12:55; Start 10/15/16 at 12:55; Stop 10/15/16 at 12:56; Status DC Verapamil HCl (Isoptin Inj) 5 mg STK-MED ONCE .ROUTE Last administered on 13:33; Start 10/15/16 at 13:33; Stop 10/15/16 at 13:34; Status DC Iodixanol 75 ml 75 ml STK-MED ONCE I-ARTERIAL Last administered on 10/15/16 13 :52; Start 10/15/16 at 13:52; Stop 10/15/16 at 13:53; Status DC Sodium Chloride (NS 250 ml Inj) 250 ml @ As Directed STK-MED ONCE .ROUTE ; Start 10/15/16 at 20:40; Stop 10/15/16 at 20:41; Status DC Nicardipine HCl 25 mg 25 mg STK-MED ONCE .ROUTE ; Start 10/15/16 at 20:40; Stop 10/15/16 at 20:41; Status DC Sodium Chloride (NS 250 ml Inj) 250 ml @ As Directed STK-MED ONCE .ROUTE ; Start 10/15/16 at 22:51; Stop 10/15/16 at 22:52; Status DC Nicardipine HCl 25 mg 25 mg STK-MED ONCE .ROUTE ; Start 10/15/16 at 22:51; Stop 10/15/16 at 22:52; Status DC Sodium Chloride (NS 250 ml Inj) 250 ml @ As Directed STK-MED ONCE .ROUTE ; Start 10/16/16 at 01:03; Stop 10/16/16 at 01:04; Status DC Nicardipine HCl 25 mg 25 mg STK-MED ONCE .ROUTE ; Start 10/16/16 at 01:03; Stop 10/16/16 at 01:05; Status DC Sodium Chloride (NS 250 ml Inj) 250 ml @ As Directed STK-MED ONCE .ROUTE ; Start 10/16/16 at 01:47; Stop 10/16/16 at 01:48; Status DC Nicardipine HCl (Cardene Inj) 25 mg STK-MED ONCE .ROUTE ; Start 10/16/16 at 01: 47; Stop 10/16/16 at 01:48; Status DC Nicardipine HCl (Cardene Inj) 25 mg STK-MED ONCE .ROUTE ; Start 10/16/16 at 03: 51; Stop 10/16/16 at 03:52; Status DC Epinephrine HCl (EPINEPHrine (1:10,000) INJ) 1 mg STK-MED ONCE .ROUTE ; Start at 03:57; Stop 10/16/16 at 03:58; Status DC Atropine Sulfate (Atropine Inj) 1 mg STK-MED ONCE .ROUTE ; Start 10/16/16 at 03: 57; Stop 10/16/16 at 03:58; Status DC Lidocaine HCl (Xylocaine 2% Inj) 100 mg STK-MED ONCE .ROUTE ; Start 10/16/16 at 03:57; Stop 10/16/16 at 03:58; Status DC Diphenhydramine HCl (Benadryl Inj) 25 mg Q6H PRN IV RASH Last administered on t 03:12; Start 10/16/16 at 08:15; Stop 10/18/16 at 14:41; Status DC Nimodipine (Nimotop) 30 mg Q2H PO Last administered on 10/26/16 06:53; Start 10/17/16 at 11:00; Stop 10/26/16 at 08:46; Status DC Iohexol 70 ml 70 ml STK-MED ONCE IV Last administered on 10/19/16 14:36; Start 10/19/16 at 14:36; Stop 10/19/16 at 14:37; Status DC Phenylephrine HCl/ Sodium Chloride (Neosynephrine Inj/NS 500 ml Inj) 500 ml @ 0 mls/hr TITRATE IV Last administered on 10/20/16 16:29; Start 10/19/16 at 16:30 ; Stop 10/23/16 at 10:42; Status DC Alteplase, Recombinant (Cathflo Activase Inj) 2 mg UNSCH PRN IV FLUSH PICC LINE OCCLUSION Last administered on 11/01/16 21:47; Start 10/19/16 at 16:15; Stop 11/05/16 at 13:47; Status DC Verapamil HCl (Isoptin Inj) 5 mg STK-MED ONCE .ROUTE Last administered on 17:20; Start 10/19/16 at 16:05; Stop 10/19/16 at 16:06; Status DC Midazolam HCl (Versed Inj) 2 mg STK-MED ONCE .ROUTE Last administered on 17:18; Start 10/19/16 at 17:18; Stop 10/19/16 at 17:19; Status DC Verapamil HCl (Isoptin Inj) 5 mg STK-MED ONCE .ROUTE Last administered on 17:27; Start 10/19/16 at 17:27; Stop 10/19/16 at 17:28; Status DC Iodixanol (Visipaque 320 Inj) 100 ml STK-MED ONCE I-ARTERIAL Last administered on 10/19/16 18:08; Start 10/19/16 at 18:08; Stop 10/19/16 at 18:09; Status DC Diphenhydramine HCl 6.25 mg 6.25 mg Q4H PRN IV PUSH itching, rash Last administered on 11/04/16 20:45; Start 10/19/16 at 19:15; Stop 11/05/16 at 13:47; Status DC Vancomycin HCl 1250 mg/Sodium Chloride 262.5 ml @ 250 mls/hr ONCE ONCE IV ; Start 10/20/16 at 12:30; Stop 10/20/16 at 12:33; Status DC Cefepime HCl 2000 mg/Sodium Chloride 100 ml @ 200 mls/hr Q8H IV Last administered on 10/29/16 21:00; Start 10/20/16 at 13:00; Stop 10/29/16 at 23:59 ; Status DC Metronidazole 100 ml @ 100 mls/hr Q6H IV Last administered on 10/23/16 08:13 ; Start 10/20/16 at 14:00; Stop 10/23/16 at 10:43; Status DC Vancomycin HCl 1250 mg/Sodium Chloride 262.5 ml @ 250 mls/hr ONCE ONCE IV Last administered on 10/20/16 15:00; Start 10/20/16 at 15:00; Stop 10/20/16 at 16:02; Status DC Vasopressin/ Dextrose (Pitressin Inj/ D5W 100 ml Inj) 100 ml @ 6 mls/hr [id number] IV Last administered on 10/23/16 04:16; Start 10/20/16 at 15:23; Stop at 10:43; Status DC Dextrose (D50w (Vial) Inj) 25 ml UNSCH PRN IV PUSH HYPOGLYCEMIA-SEE COMMENTS; Start 10/20/16 at 17:15; Stop 10/30/16 at 15:07; Status DC Insulin Human Regular 1 1 Q6HR SQ Last administered on 10/23/16 05:39; Start 10/20/16 at 18:00; Stop 10/30/16 at 15:07; Status DC Sodium Chloride 500 ml @ 500 mls/hr BOLUS ONCE IV Last administered on 18:27; Start 10/20/16 at 17:15; Stop 10/20/16 at 18:14; Status DC Sodium Chloride 1,000 ml @ 999 mls/hr BOLUS ONCE IV Last administered on 10/21 10:01; Start 10/21/16 at 08:30; Stop 10/21/16 at 09:30; Status DC Sodium Chloride (NS 1000 ml Inj) 1,000 ml @ 60 mls/hr [id number] IV Last administered on 11/18/16 00:21; Start 10/21/16 at 08:30; Stop 11/18/16 at 08:54 ; Status DC Sodium Chloride 2 gm 2 gm Q8HR PO Last administered on 10/22/16 04:56; Start 10/21/16 at 08:30; Stop 10/22/16 at 10:01; Status DC Sodium Chloride (NS 500 ml Inj) 500 ml @ 500 mls/hr BOLUS ONCE IV Last administered on 10/21/16 20:06; Start 10/21/16 at 19:15; Stop 10/21/16 at 20:14 ; Status DC Fludrocortisone Acetate 0.1 mg 0.1 mg Q12HR PO Last administered on 10/22/16 09:13; Start 10/22/16 at 09:00; Stop 10/22/16 at 16:26; Status DC Sodium Chloride 500 ml @ 20 mls/hr ONCE ONCE IV Last administered on 06:15; Start 10/22/16 at 06:15; Stop 10/23/16 at 07:14; Status DC Sodium Chloride (NS 1000 ml Inj) 1,000 ml @ 999 mls/hr BOLUS ONCE IV Last administered on 10/22/16 06:15; Start 10/22/16 at 06:15; Stop 10/22/16 at 07:15 ; Status DC Sodium Chloride (Sodium Chloride) 3 gm Q8HR PO Last administered on 11/16/16 05:48; Start 10/22/16 at 14:00; Stop 11/16/16 at 09:16; Status DC Fludrocortisone Acetate 0.2 mg 0.2 mg Q12HR PO Last administered on 11/27/16 08:39; Start 10/22/16 at 21:00 Sodium Chloride 1,000 ml @ 999 mls/hr BOLUS ONCE IV Last administered on 10/22 16:49; Start 10/22/16 at 16:30; Stop 10/22/16 at 17:30; Status DC Sodium Chloride 500 ml @ 40 mls/hr CONTINUOUS IV Last administered on 18:50; Start 10/22/16 at 16:30; Stop 10/23/16 at 19:54; Status DC Sodium Chloride (NS 500 ml Inj) 500 ml @ 500 mls/hr BOLUS ONCE IV Last administered on 10/23/16 06:46; Start 10/23/16 at 06:45; Stop 10/23/16 at 07:44 ; Status DC Cisatracurium Besylate 20 mg 20 mg STAT ONCE IV Last administered on 11:35; Start 10/23/16 at 10:30; Stop 10/23/16 at 11:01; Status DC Propofol (Diprivan 1000 Mg/100ml Inj) 100 ml @ 0 mls/hr TITRATE IV ; Start 10/23 at 10:30; Stop 10/25/16 at 11:27; Status DC Fentanyl Citrate (fentaNYL INJ) 100 mcg STAT ONCE IV PUSH Last administered on 10/23/16 11:35; Start 10/23/16 at 10:30; Stop 10/23/16 at 11:02; Status DC Enoxaparin Sodium 40 mg 40 mg Q24H SQ Last administered on 11/26/16 20:08; Start 10/23/16 at 21:00 Sodium Chloride (Sodium Chloride 3% Inj) 500 ml @ 20 mls/hr CONTINUOUS IV Last administered on 10/24/16 10:32; Start 10/23/16 at 20:00; Stop 10/25/16 at 20:01; Status DC Propofol 130 mg 130 mg STK-MED ONCE IV ; Start 10/24/16 at 08:53; Stop 10/24/16 at 10:11; Status DC Potassium Chloride 100 ml @ 50 mls/hr Q2H PRN IV For Potassium 2.8 - 3.2 mEq/ L Last administered on 11/03/16 05:17; Start 10/24/16 at 15:15; Stop 11/04/16 at 12:19; Status DC Potassium Chloride (KCl 20 Meq Premix Inj) 100 ml @ 50 mls/hr Q2H PRN IV For Potassium 2.8 - 3.2 mEq/L Last administered on 10/31/16 16:39; Start 10/24/16 at 15:15; Stop 11/04/16 at 12:19; Status DC Potassium Bicarb/ Potassium Chloride 50 meq 50 meq UNSCH PRN PO For Potassium 3.3 - 3.5 mEq/L; Start 10/24/16 at 15:15; Stop 11/04/16 at 12:19; Status DC Potassium Chloride 100 ml @ 25 mls/hr UNSCH PRN IV For Potassium 3.3 - 3.5 mEq /L Last administered on 10/26/16t 21:47; Start 10/24/16 at 15:15; Stop 11/04/16 at 12:19; Status DC Potassium Chloride 100 ml @ 50 mls/hr Q2H PRN IV For Potassium 3.3 - 3.5 mEq/L ; Start 10/24/16 at 15:15; Stop 11/04/16 at 12:19; Status DC Magnesium Sulfate/ Sodium Chloride (Magnesium Sulfate Inj/NS Inj) 100 ml @ 50 mls/hr UNSCH PRN IV For Magnesium 0.9 - 1.1 mg/dL; Start 10/24/16 at 15:15; Stop 11/04/16 at 12:19; Status DC Magnesium Oxide 800 mg 800 mg UNSCH PRN PO For Magnesium 1.2 - 1.6 mg/dL; Start 10/24/16 at 15:15; Stop 11/04/16 at 12:19; Status DC Magnesium Sulfate/ Sodium Chloride (Magnesium Sulfate Inj/NS Inj) 100 ml @ 50 mls/hr UNSCH PRN IV For Magnesium 1.2 - 1.6 mg/dL; Start 10/24/16 at 15:15; Stop 11/04/16 at 12:19; Status DC Potassium Phosphate 2000 mg 2,000 mg Q4H PRN PO For Phosphorus < 2.5 mg/dL; Start 10/24/16 at 15:15; Stop 11/04/16 at 12:19; Status DC Sodium Phosphate/ Sodium Chloride (Sodium Phosphate Inj/NS 250 ml Inj) 250 ml @ 42 mls/hr UNSCH PRN IV For Phosphorus < 2.5 mg/dL; Start 10/24/16 at 15:15; Stop 11/04/16 at 12:19; Status DC Potassium Phosphate 2000 mg 2,000 mg UNSCH PRN PO/TUBE SEE LABEL COMMENTS; Start 10/24/16 at 15:15; Stop 11/04/16 at 12:19; Status DC Potassium Phosphate 30 mmol/ Sodium Chloride 260 ml @ 42 mls/hr UNSCH PRN IV SEE LABEL COMMENTS; Start 10/24/16 at 15:15 Sodium Chloride 500 ml @ 10 mls/hr Q24H IV Last administered on 10/29/16 20: 54; Start 10/25/16 at 21:00; Stop 10/30/16 at 12:48; Status DC Cefepime HCl/ Sodium Chloride (Maxipime Inj/NS Inj) 100 ml @ 200 mls/hr Q8HR IV Last administered on 11/06/16 05:05; Start 10/30/16 at 14:00; Stop 11/06/16 at 12:00; Status DC Fentanyl Citrate (fentaNYL INJ) 50 mcg Q3H PRN IV PAIN 1-10 Last administered on 11/05/16 05:07; Start 10/30/16 at 15:15; Stop 11/05/16 at 13:47; Status DC Docusate Sodium 100 mg 100 mg Q12H G-TUBE Last administered on 11/03/16 17:00; Start 10/31/16 at 17:00; Stop 11/06/16 at 16:48; Status DC Potassium Chloride 100 ml @ 50 mls/hr Q2H PRN IV For Potassium 2.8 - 3.2 mEq/ L Last administered on 11/20/16 07:31; Start 11/03/16 at 05:15 Potassium Chloride (KCl 20 Meq Premix Inj) 100 ml @ 50 mls/hr Q2H PRN IV For Potassium 2.8 - 3.2 mEq/L Last administered on 11/27/16 08:38; Start 11/03/16 at 05:15 Potassium Bicarb/ Potassium Chloride 50 meq 50 meq UNSCH PRN PO For Potassium 3.3 - 3.5 mEq/L Last administered on 11/22/16 07:07; Start 11/03/16 at 05:15 Potassium Chloride 100 ml @ 25 mls/hr UNSCH PRN IV For Potassium 3.3 - 3.5 mEq /L Last administered on 11/19/16 01:44; Start 11/03/16 at 05:15 Potassium Chloride 100 ml @ 50 mls/hr Q2H PRN IV For Potassium 3.3 - 3.5 mEq/ L Last administered on 11/25/16 08:51; Start 11/03/16 at 05:15 Magnesium Sulfate/ Sodium Chloride (Magnesium Sulfate Inj/NS Inj) 100 ml @ 50 mls/hr UNSCH PRN IV For Magnesium 0.9 - 1.1 mg/dL; Start 11/03/16 at 05:15 Magnesium Oxide 800 mg 800 mg UNSCH PRN PO For Magnesium 1.2 - 1.6 mg/dL; Start 11/03/16 at 05:15 Magnesium Sulfate/ Sodium Chloride (Magnesium Sulfate Inj/NS Inj) 100 ml @ 50 mls/hr UNSCH PRN IV For Magnesium 1.2 - 1.6 mg/dL; Start 11/03/16 at 05:15 Potassium Phosphate 2000 mg 2,000 mg Q4H PRN PO For Phosphorus < 2.5 mg/dL; Start 11/03/16 at 05:15 Sodium Phosphate/ Sodium Chloride (Sodium Phosphate Inj/NS 250 ml Inj) 250 ml @ 42 mls/hr UNSCH PRN IV For Phosphorus < 2.5 mg/dL; Start 11/03/16 at 05:15 Potassium Phosphate (K-Phos) 2,000 mg UNSCH PRN PO/TUBE SEE LABEL COMMENTS; Start 11/03/16 at 05:15 Furosemide 40 mg 40 mg ONCE ONCE IV PUSH Last administered on 11/03/16 18:16; Start 11/03/16 at 18:15; Stop 11/03/16 at 18:16; Status DC Potassium Chloride/Sodium Chloride (KCl Inj/NS Inj) 115 ml @ 38.333 mls/ hr Q3H IV-CENTRAL Last administered on 11/03/16 22:53; Start 11/03/16 at 20:00; Stop 11/04/16 at 01:59; Status DC Labetalol HCl (Trandate) 100 mg Q8H PO Last administered on 11/27/16 12:45; Start 11/03/16 at 20:00 Hydralazine HCl (Apresoline) 50 mg Q12HR PO Last administered on 11/27/16 08: 39; Start 11/03/16 at 19:00 Amlodipine Besylate (Norvasc) 5 mg DAILY PO Last administered on 11/27/16 08: 39; Start 11/04/16 at 09:00 Nystatin (Mycostatin Powder) 1 applic TID TOPICAL Last administered on 08:40; Start 11/06/16 at 09:00 Lactobacillus Acidophilus (Lactinex) 1 tab Q12HR PO Last administered on 08:38; Start 11/06/16 at 21:00 Quetiapine Fumarate (SEROquel) 25 mg BID@09,12 PO Last administered on 12:45; Start 11/07/16 at 09:00 Multi-Ingredient Mouthwash/Gargle (Magic Mouthwash Adult Liq) 5 ml QID SWISH- SWAL Last administered on 11/16/16 13:00; Start 11/06/16 at 18:00; Stop at 17:59; Status DC Docusate Sodium (Colace Liq) 100 mg Q12H PRN G-TUBE constipation; Start at 17:00 Potassium Bicarbonate (Effer-K Eff) 25 meq DAILY PO Last administered on 09:00; Start 11/06/16 at 17:00; Stop 11/09/16 at 16:59; Status DC Diphenhydramine HCl (Benadryl Inj) 25 mg ONCE ONCE IV PUSH Last administered on 11/08/16 01:55; Start 11/08/16 at 01:45; Stop 11/08/16 at 01:46; Status DC Loperamide HCl (Imodium) 2 mg UNSCH PRN PO DIARRHEA Last administered on 21:16; Start 11/09/16 at 09:45 Diphenoxylate HCl/ Atropine (Lomotil Tab) 1 tab Q6H PRN PO severe diarrhea ; Start 11/09/16 at 09:45 Metronidazole (Flagyl) 500 mg Q8H PO Last administered on 11/27/16 08:39; Start 11/09/16 at 16:00 Thrombin (Thrombin Top Soln) 10,000 units STK-MED ONCE .ROUTE ; Start 11/10/16 at 08:31; Stop 11/10/16 at 08:32; Status DC Gelatin (Gelfoam 100 Top) 1 foam STK-MED ONCE .ROUTE ; Start 11/10/16 at 08:31; Stop 11/10/16 at 08:32; Status DC Potassium Bicarb/ Potassium Chloride 50 meq 50 meq NOW ONCE NG Last administered on 11/15/16 20:42; Start 11/15/16 at 20:45; Stop 11/15/16 at 20:46 ; Status DC Potassium Chloride (KCl 40 Meq Premix Inj) 100 ml @ 25 mls/hr Q4H IV Last administered on 11/16/16 01:13; Start 11/15/16 at 21:00; Stop 11/16/16 at 04:59 ; Status DC Sodium Chloride (Sodium Chloride) 2 gm Q8HR PO Last administered on 11/21/16 13:21; Start 11/16/16 at 14:00; Stop 11/21/16 at 17:30; Status DC Diphenhydramine HCl (Benadryl Inj) 50 mg Q6H PRN IV ITCHING Last administered on 11/27/16 08:39; Start 11/16/16 at 23:00 Diphenhydramine HCl (Benadryl Inj) 50 mg STK-MED ONCE .ROUTE ; Start 11/16/16 at 22:55; Stop 11/16/16 at 22:56; Status DC Quetiapine Fumarate (SEROquel) 25 mg HS PO Last administered on 11/26/16 20:08 ; Start 11/20/16 at 21:00 Sodium Chloride (Sodium Chloride) 2 gm BID PO Last administered on 11/23/16 07 :28; Start 11/22/16 at 09:00; Stop 11/23/16 at 11:40; Status DC Potassium Chloride (KCl) 20 meq BID PO Last administered on 11/24/16 20:18; Start 11/23/16 at 09:00; Stop 11/25/16 at 14:47; Status DC Sodium Chloride (Sodium Chloride) 2 gm DAILY PO Last administered on 11/27/16 09:00; Start 11/24/16 at 09:00 Thrombin (Thrombin Top Soln) 10,000 units STK-MED ONCE .ROUTE Last administered on 11/24/16 15:50; Start 11/24/16 at 07:55; Stop 11/24/16 at 07:56 ; Status DC Gelatin (Gelfoam 100 Top) 1 foam STK-MED ONCE .ROUTE Last administered on 15:50; Start 11/24/16 at 07:56; Stop 11/24/16 at 07:57; Status DC Lidocaine/ Epinephrine (Xylocaine-Epi 1%-1:100,000 Inj) 50 ml STK-MED ONCE .ROUTE Last administered on 11/24/16 15:50; Start 11/24/16 at 07:56; Stop at 07:57; Status DC Gentamicin Sulfate (Gentamicin Inj) 240 mg STK-MED ONCE .ROUTE Last administered on 11/24/16 15:50; Start 11/24/16 at 07:56; Stop 11/24/16 at 07:57 ; Status DC Vancomycin HCl 1000 mg 1,000 mg STK-MED ONCE .ROUTE Last administered on 15:40; Start 11/24/16 at 14:41; Stop 11/24/16 at 14:42; Status DC Sodium Chloride (NS 250 ml Inj) 250 ml @ As Directed STK-MED ONCE .ROUTE ; Start 11/24/16 at 14:41; Stop 11/24/16 at 14:42; Status DC Fentanyl Citrate 250 mcg 250 mcg STK-MED ONCE .ROUTE ; Start 11/24/16 at 17:28; Stop 11/24/16 at 17:29; Status DC Potassium Chloride/Sodium Chloride (1/2 NS + KCl 20 Meq Inj) 1,000 ml @ 84 mls/ hr [id number] IV Last administered on 11/24/16 20:52; Start 11/24/16 at 17:45; Stop 11/24/16 at 23:44; Status DC Miscellaneous Information ALL NURSING DEPARTME... 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 ICD Code: I60.8 Status: Acute (2) Hypertension ICD Code: I10 Status: Chronic (3) Major neurocognitive disorder due to vascular disease, without behavioral disturbance, severe ICD Code: F01.50 Status: Acute (4) Septic shock ICD Code: A41.9 Status: Resolved (5) Hydrocephalus ICD Code: G91.9 Status: Acute (6) Intracranial hemorrhage ICD Code: I62.9 Status: Acute (7) Major neurocognitive disorder as late effect of traumatic brain injury with behavioral disturbance ICD Code: S06.9X9S Status: Acute (8) Encephalopathy ICD Code: G93.40 Status: Acute (9) Sepsis ICD Code: A41.9 Status: Resolved (10) Pneumonia ICD Code: J18.9 Status: Acute (11) Protein-calorie malnutrition, mild ICD Code: E44.1 Status: Acute (12) Acute respiratory failure with hypoxia and hypercarbia ICD Code: J96.01 Status: Acute Assessment and Plan Aneurysmal subarachnoid hemorrhage, occurred on 10/05/16: -Appreciate neurosurgery recommendations. Okay for Lovenox per neurosurgery. Continue Keppra for seizure prophylaxis. -Status post P[employer]CH MACHINE [employer] shunt on 11/24/2016 Encephalopathy: -Secondary to above. Mental status is improving slowly. Acute hypoxic, hypercarbic respiratory failure: -Tracheostomy 10/23/16. Continue supplemental oxygen. DuoNeb as needed, scheduled. Trach management per pulmonology. Septic shock: Resolved. Possible cerebral salt wasting: - Continue Florinef, sodium chloride tablets. Mild acute protein calorie malnutrition -Continue tube feedings. Monitor labs. Pneumonia: - Completed antibiotics. C. difficile colitis: Continue Flagyl. Repeat C. difficile studies are negative. Hyperglycemia of critical illness: - Improved. Hydrocephalus: -Repeat head CT unchanged. 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 Hypokalemia -: Improved DVT prophylaxis: SCDs, YOUSIF azeeme, Lovenox. GI prophylaxis: Protonix. . Discharge Planning Patient stable to be transferred out of [facility]. Problem Qualifiers (1) Hypertension: Qualified Code: I10 - Essential hypertension Sandra Ramos MD November 27, 2016 14:28
--- NOTE | 2016-11-27 16:19 | HHI.NSPN ---
History Chief Complaint: s/p aneurysm coiling. Interval History 51-year-old male admitted with positive subarachnoid hemorrhage. Possible seizure activity. Intubated in the emergency room. 10/05/16: Endovascular coiling 10/07/16 rinse intubated and sedated. Ventriculostomy in place 10/09/16: Remains intubated and sedated. Increased agitation with attempts at sedation vacation 10/17/16: Pupils 2 mm. Intubated and sedated. Somewhat more responsive with decreased sedation. External ventricular drain and closed to reservoir again today. 10/21/16: Ventricular drain removed 11/24/16: Ventricular peritoneal shunt placed Exam Results Vital Signs Date Time Temp Pulse Resp B/P Pulse Ox O2 Delivery O2 Flow Rate FiO2 11/27/16 07:00 98 Trach Collar 6.00 28 11/27/16 06:00 113 11/27/16 04:00 98.7 25 149/68 Intake and Output 11/26/16 11/26/16 11/27/16 08:00 16:00 00:00 Intake Total 361 ml 550 ml 501 ml Output Total 300 ml 675 ml 700 ml Balance 61 ml -125 ml -199 ml Physical Examination HEENT: Right parietal surgical wounds with intact dressings, shadowing noted on the inferior dressing, well-approximated with steri-strips, no active drainage, erythema or streaking evident. No nuchal rigidity. Scalp incision dry and intact Resp: Clear to auscultation. Nonlabored CV: Regular rhythm without murmur. GI: Abdomen soft, nontender, positive bowel sounds, PEG tube enteral feeds. RUQ surgical incision with intact dressing : Condom cath to BSD. Neuro: Awake & alert Does mouth a few words in response to questions . Indicates no headache or abdominal pain. Follows simple commands Moving all extremities Good muscle strength in all extremities Extraocular movements intact Lab, Micro, Other Results Laboratory Tests Test 11/27/16 04:13 White Blood Count 10.0 TH/MM3 Red Blood Count 3.71 MIL/MM3 Hemoglobin 10.3 GM/DL Hematocrit 32.4 % Mean Corpuscular Volume 87.4 FL Mean Corpuscular Hemoglobin 27.9 PG Mean Corpuscular Hemoglobin 31.9 % Concent Red Cell Distribution Width 15.1 % Platelet Count 261 TH/MM3 Mean Platelet Volume 9.2 FL Sodium Level 143 MEQ/L Potassium Level 3.2 MEQ/L Chloride Level 105 MEQ/L Carbon Dioxide Level 31.0 MEQ/L Anion Gap 7 MEQ/L Blood Urea Nitrogen 10 MG/DL Creatinine 0.68 MG/DL Estimat Glomerular Filtration 123 ML/MIN Rate Random Glucose 79 MG/DL Calcium Level 8.6 MG/DL Medical Decision Making Impression and Plan Impression: 1. 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 Postoperative CT scan reveals decreasing size of ventricles. Plan: He is stable following shunt placement. Continue PT/OT/ST He is stable for transfer from the intensive surgical care unit from a neurosurgical standpoint. We will follow him intermittently in the hospital Gino Maec MD November 27, 2016 16:19
[2016-11-27] MEDS: ENOXAPARIN SODIUM 40 MG/0.4 ML SYRINGE SQ SCH (19:42)
[2016-11-27] MEDS: ONDANSETRON HCL 4 MG/2 ML VIAL IV PRN (23:26)
[2016-11-28] VITALS (11 sets, daily range): BP systolic 108–162; BP diastolic 65–92; PULSE 91–119; RESP 15–26; TEMP 97.8–98.8; O2SAT 90–97
[2016-11-28] MEDS: CHLORHEXIDINE GLUCONATE 2 % 1 PACK (2 CLOTHS) TOP SCH ×2 (04:00→20:09)
[2016-11-28] MEDS: LABETALOL HCL 100 MG TAB PO SCH ×3 (04:17→21:37)
[2016-11-28] MEDS: diphenhydrAMINE HCL 50 MG/ML VIAL IV PRN ×2 (04:17→21:36)
[2016-11-28] MEDS: POTASSIUM CHLORIDE 25 MEQ EFFERVESCENT TAB NG SCH ×2 (08:15→21:37)
[2016-11-28] MEDS: SODIUM CHLORIDE 1 GRAM TAB PO SCH (08:15)
[2016-11-28] MEDS: hydrALAZINE HCL 50 MG TAB PO SCH ×2 (08:17→21:37)
[2016-11-28] MEDS: FLUDROCORTISONE ACETATE 0.1 MG TAB PO SCH ×2 (08:17→21:37)
[2016-11-28] MEDS: LACTOBACILLUS ACIDOPHILUS TAB PO SCH ×2 (08:17→21:37)
[2016-11-28] MEDS: metroNIDAZOLE 500 MG TAB PO SCH ×2 (08:17→16:52)
[2016-11-28] MEDS: amLODIPine BESYLATE 5 MG TAB PO SCH (08:18)
[2016-11-28] MEDS: PANTOPRAZOLE SODIUM 40 MG VIAL IV SCH (08:18)
[2016-11-28] MEDS: ARTIFICIAL TEARS OPTH SOLN 15 ML BTL EACH EYE SCH ×3 (08:18→18:00)
[2016-11-28] MEDS: QUEtiapine FUMARATE 25 MG TAB PO SCH ×3 (08:18→21:37)
[2016-11-28] MEDS: SODIUM CHLORIDE 0.9% FLUSH 10 ML FLUSH IV FLUSH SCH (08:18)
[2016-11-28] MEDS: PRAVASTATIN SOD 40 MG TAB PO SCH (08:19)
[2016-11-28] MEDS: NYSTATIN 100,000 U/GM PWD 15 GM BTL TOPICAL SCH ×3 (08:21→18:00)
--- NOTE | 2016-11-28 15:27 | HHI.PR ---
Subjective Remarks Follow-up for intracranial bleed Dealt with patient's nurse at the bedside. Patient is very sleepy and would not wake up for me. Per nurse patient did very well with physical therapist this morning. She also stated about 2 days ago patient had one episode. Check Tylenol vomiting. Since then patient has not had any vomiting. No bowel movements for 2 days. When I asked patient had abdominal pain he did not his head yes. Abdominal pain seems to be in the epigastric area very mild. Otherwise no acute events. Patient remains afebrile. Objective Vitals Vital Signs Date Time Temp Pulse Resp B/P Pulse Ox O2 Delivery O2 Flow Rate FiO2 11/28/16 15:07 90 T-piece 21 11/28/16 12:00 115 11/28/16 10:00 119 11/28/16 08:00 108 11/28/16 07:00 98 Trach Collar 6.00 28 11/28/16 06:00 91 11/28/16 04:00 98.2 110 26 160/90 93 11/28/16 04:00 110 11/28/16 02:00 110 11/28/16 00:00 98.5 114 25 146/92 95 11/28/16 00:00 106 11/27/16 22:00 106 11/27/16 21:05 95 Trach Collar 7.00 21 11/27/16 20:00 99.0 114 24 140/70 93 11/27/16 20:00 106 11/27/16 20:00 98 Trach Collar 6.00 28 11/27/16 18:00 106 11/27/16 16:00 98.8 102 21 127/76 96 11/27/16 16:00 112 11/27/16 15:52 94 Trach Collar 21 I/O 11/27/16 11/27/16 11/27/16 11/28/16 11/28/16 11/28/16 07:00 15:00 23:00 07:00 15:00 23:00 Intake Total 350 ml 627 ml 567 ml 476 ml 780 ml Output Total 1000 ml 325 ml 350 ml 600 ml 350 ml Balance -650 ml 302 ml 217 ml -124 ml 430 ml IV Total 0 ml 107 ml 0 ml Tube Feeding 350 ml 395 ml 467 ml 376 ml 450 ml Tube Irrigant 125 ml 100 ml 100 ml 330 ml Output Urine Total 1000 ml 325 ml 350 ml 600 ml 350 ml # Bowel Movements 0 2 0 Result Diagram: 11/27/16 0413 11/27/16 0413 Objective Remarks General: No acute distress. In soft wrist and mitten restraints. Trach collar. Heart: Regular rate and rhythm. No murmur. Lungs: Clear to auscultation bilaterally. No wheezes, rales, or rhonchi. Abdomen: Soft, +mild TTP in epigastric area with deep palpation. , nondistended. Positive bowel sounds but mildly hypoactive. Extremities: No lower extremity edema. SCDs. Psych: Patient is sleeping and will not wake up for me. Procedures 10/05/16 right frontal twist drill for ventriculostomy placement 10/20/16 arterial line placement 10/23/16 bedside percutaneous tracheostomy under direct bronchoscopic visualization 10/24/16 PEG tube placement at bedside Medications and IVs Current Medications Propofol 100 ml @ As Directed STK-MED ONCE .ROUTE ; Start 10/05/16 at 01:16; Stop 10/05/16 at :17; Status DC Cefazolin Sodium/ Dextrose 50 ml @ As Directed STK-MED ONCE .ROUTE ; Start at 01:23; Stop 10/05/16 at 01:24; Status DC Cefazolin Sodium/ Dextrose (Ancef 2 Gm Premix) 50 ml @ 100 mls/hr ONCE STAT IV ; Start 10/05/16 at 01:26; Stop 10/05/16 at 01:55; Status DC Diphtheria/ Tetanus/Acell Pertussis (Boostrix Inj) 0.5 ml ONCE ONCE IM ; Start 10/05/16 at 01:26; Stop 10/05/16 at 01:28; Status DC Nicardipine HCl (Cardene Inj) 25 mg STK-MED ONCE .ROUTE ; Start 10/05/16 at 01:26 ; Stop 10/05/16 at 01:27; Status DC Nicardipine HCl 25 mg 25 mg STK-MED ONCE .ROUTE ; Start 10/05/16 at 01:27; Stop 10/05/16 at 01:28; Status DC Sodium Chloride 1,000 ml @ 0 mls/hr Q0M IV ; Start 10/05/16 at 01:30; Stop at 02:57; Status DC Nicardipine HCl/ Sodium Chloride (Cardene Inj/NS 250 ml Inj) 260 ml @ 0 mls/hr TITRATE ONCE IV Last administered on 10/05/16 02:00; Start 10/05/16 at 02:00; Stop 10/05/16 at 02:01; Status DC Iohexol (Omnipaque 350 Inj) 97 ml STK-MED ONCE IV Last administered on 02:11; Start 10/05/16 at 02:11; Stop 10/05/16 at 02:12; Status DC Etomidate (Amidate Inj) 20 mg STK-MED ONCE .ROUTE ; Start 10/05/16 at 02:13; Stop 10/05/16 at 02:14; Status DC Epinephrine HCl (EPINEPHrine (1:10,000) INJ) 1 mg STK-MED ONCE .ROUTE ; Start at 02:32; Stop 10/05/16 at 02:33; Status DC Atropine Sulfate (Atropine Inj) 1 mg STK-MED ONCE .ROUTE ; Start 10/05/16 at 02: 33; Stop 10/05/16 at 02:34; Status DC Lidocaine HCl 100 mg 100 mg STK-MED ONCE .ROUTE ; Start 10/05/16 at 02:33; Stop 10/05/16 at 02:34; Status DC Sodium Chloride (NS 1000 ml Inj) 1,000 ml @ 84 mls/hr [id number] IV Last administered on 10/14/16 23:55; Start 10/05/16 at 02:31; Stop 10/15/16 at 22:17 ; Status DC Acetaminophen (Tylenol) 650 mg Q6H PRN PO PAIN 1-10 AND/OR FEVER >101F Last administered on 11/24/16 20:17; Start 10/05/16 at 02:45 Morphine Sulfate (Morphine Inj) 2 mg Q2H PRN IV PAIN SCALE 6 TO 10 Last administered on 10/15/16 19:04; Start 10/05/16 at 02:45; Stop 10/22/16 at 06:04 ; Status DC Pantoprazole Sodium (Protonix Inj) 40 mg DAILY IV Last administered on 08:18; Start 10/05/16 at 09:00 Lorazepam (Ativan Inj) 2 mg Q4H PRN IV Agitation/Sedation Last administered on 10/11/16 12:27; Start 10/05/16 at 02:45; Stop 10/18/16 at 14:41; Status DC Artificial Tears (Tears Naturale Opth Soln) 1 drop TID EACH EYE Last administered on 11/28/16 13:00; Start 10/05/16 at 09:00 Ondansetron HCl (Zofran Inj) 4 mg Q6H PRN IV NAUSEA OR VOMITING Last administered on 11/27/16 23:26; Start 10/05/16 at 02:45 Metoclopramide HCl (Reglan Inj) 10 mg Q6H PRN IV NAUSEA OR VOMITING Last administered on 10/13/16 09:48; Start 10/05/16 at 02:45; Stop 10/19/16 at 07:38 ; Status DC Docusate Sodium (Colace) 100 mg Q12H G-TUBE Last administered on 10/30/16 05: 12; Start 10/05/16 at 04:00; Stop 10/31/16 at 16:41; Status DC Albuterol/ Ipratropium (Duoneb Neb) 1 ampule Q2HR NEB PRN INH WHEEZING Last administered on 10/31/16 13:41; Start 10/05/16 at 02:45 Miscellaneous Information 1 [id number] Last administered on 10/05/16 02:45; Start 10/05/16 at 02:45 Chlorhexidine Gluconate (Chlorhexidine 2% Cloth) Taper DAILY@04 TOP Last administered on 11/16/16 03:28; Start 10/05/16 at 04:00; Stop 10/01/17 at 03:59 Chlorhexidine Gluconate 3 pack 3 pack UNSCH PRN TOP HYGIENIC CARE; Start at 02:45 Propofol (Diprivan 1000 Mg/100ml Inj) 100 ml @ 0 mls/hr TITRATE IV Last administered on 10/13/16 16:58; Start 10/05/16 at 02:45; Stop 10/18/16 at 14:41 ; Status DC Nimodipine 60 mg 60 mg Q4HR PO ; Start 10/05/16 at 04:00; Stop 10/05/16 at 04:00; Status DC Potassium Chloride/Sodium Chloride 1,000 ml @ 100 mls/hr Q10H IV ; Start at 02:15; Stop 10/05/16 at 02:56; Status DC Levetriacetam 500 mg/Sodium Chloride 105 ml @ 420 mls/hr Q12HR IV Last administered on 11/26/16 20:08; Start 10/05/16 at 09:00; Stop 11/26/16 at 22:02 ; Status DC Nicardipine HCl/ Sodium Chloride (Cardene Inj/NS 250 ml Inj) 260 ml @ 0 mls/hr TITRATE IV Last administered on 10/18/16 11:23; Start 10/05/16 at 02:45; Stop 11/05/16 at 13:47; Status DC Labetalol HCl (Trandate Inj) 10 mg Q4H PRN IV PUSH SBP>140, DBP>90 Last administered on 11/03/16 05:45; Start 10/05/16 at 02:45; Stop 11/05/16 at 13:47; Status DC Nimodipine (Nimotop) 60 mg Q4HR PO Last administered on 10/17/16 07:16; Start 10/05/16 at 04:00; Stop 10/17/16 at 10:55; Status DC Pravastatin Sodium (Pravachol) 40 mg DAILY PO Last administered on 11/28/16 08 :19; Start 10/05/16 at 09:00 Iohexol (Omnipaque 350 Inj) 75 ml STK-MED ONCE IV Last administered on 04:15; Start 10/05/16 at 04:15; Stop 10/05/16 at 04:16; Status DC Verapamil HCl (Isoptin Inj) 10 mg STK-MED ONCE .ROUTE Last administered on 13:04; Start 10/05/16 at 13:04; Stop 10/05/16 at 13:05; Status DC Heparin Sodium (Porcine) (*HEPARIN INJ Periprocedural ONLY) 10,000 units STK- MED ONCE .ROUTE Last administered on 10/05/16 14:16; Start 10/05/16 at 15:05; Stop 10/05/16 at 15:06; Status DC Iodixanol (Visipaque 320 Inj) 120 ml STK-MED ONCE I-ARTERIAL Last administered on 10/05/16 16:18; Start 10/05/16 at 16:18; Stop 10/05/16 at 16:19; Status DC Fentanyl Citrate 100 mcg 100 mcg STK-MED ONCE .ROUTE ; Start 10/05/16 at 16:49; Stop 10/05/16 at 16:50; Status DC Fentanyl Citrate (fentaNYL DRIP) 250 ml @ 0 mls/hr TITRATE IV Last administered on 10/17/16 00:29; Start 10/05/16 at 22:15; Stop 10/17/16 at 11:30 ; Status DC Norepinephrine Bitartrate 4 mg 4 mg STK-MED ONCE .ROUTE ; Start 10/06/16 at 04:03 ; Stop 10/06/16 at 04:04; Status DC Sodium Chloride (NS 1000 ml Inj) 999 ml @ 0 mls/hr BOLUS ONCE IV Last administered on 10/06/16 06:38; Start 10/06/16 at 06:45; Stop 10/06/16 at 06:46; Status DC Sodium Chloride (NS Flush) See Protocol DAILY IV FLUSH Last administered on 08:18; Start 10/07/16 at 09:00 Sodium Chloride (NS Flush) See Protocol UNSCH PRN IV FLUSH SEE PROTOCOL TABLE; Start 10/06/16 at 12:00 Heparin Sodium (Porcine) (Heparin Central Flush) See Protocol DAILY IV FLUSH Last administered on 10/13/16 09:00; Start 10/07/16 at 09:00; Stop 10/18/16 at 14:41; Status DC Heparin Sodium (Porcine) (Heparin Central Flush) See Protocol UNSCH PRN IV FLUSH SEE PROTOCOL TABLE Last administered on 10/11/16 08:00; Start 10/06/16 at 12:00; Stop 10/18/16 at 14:41; Status DC Sodium Chloride (NS Flush) UNSCH PRN IV FLUSH SEE PROTOCOL TABLE Last administered on 11/21/16 19:37; Start 10/06/16 at 12:00 Norepinephrine Bitartrate 4 mg 4 mg STK-MED ONCE .ROUTE ; Start 10/06/16 at 17:30 ; Stop 10/06/16 at 17:31; Status DC Norepinephrine Bitartrate 4 mg/ Sodium Chloride 254 ml @ 0 mls/hr TITRATE IV Last administered on 10/28/16 20:14; Start 10/06/16 at 18:00; Stop 11/26/16 at 22:03; Status DC Potassium Chloride 100 ml @ 50 mls/hr Q2H PRN IV For Potassium 2.8 - 3.2 mEq/L ; Start 10/07/16 at 08:00; Stop 10/12/16 at 13:11; Status DC Potassium Chloride 100 ml @ 50 mls/hr Q2H PRN IV For Potassium 2.8 - 3.2 mEq/L ; Start 10/07/16 at 08:00; Stop 10/12/16 at 13:11; Status DC Potassium Chloride 100 ml @ 25 mls/hr UNSCH PRN IV For Potassium 3.3 - 3.5 mEq /L Last administered on 10/07/16 15:56; Start 10/07/16 at 08:00; Stop 10/12/16 at 13:11; Status DC Potassium Chloride 100 ml @ 50 mls/hr Q2H PRN IV For Potassium 3.3 - 3.5 mEq/ L Last administered on 10/11/16 07:41; Start 10/07/16 at 08:00; Stop 10/12/16 at 13:11; Status DC Magnesium Sulfate/ Sodium Chloride (Magnesium Sulfate Inj/NS Inj) 100 ml @ 50 mls/hr UNSCH PRN IV For Magnesium 0.9 - 1.1 mg/dL; Start 10/07/16 at 08:00; Stop 10/12/16 at 13:11; Status DC Magnesium Oxide 800 mg 800 mg UNSCH PRN PO For Magnesium 1.2 - 1.6 mg/dL; Start 10/07/16 at 08:00; Stop 10/12/16 at 13:11; Status DC Magnesium Sulfate/ Sodium Chloride (Magnesium Sulfate Inj/NS Inj) 100 ml @ 50 mls/hr UNSCH PRN IV For Magnesium 1.2 - 1.6 mg/dL; Start 10/07/16 at 08:00; Stop 10/12/16 at 13:11; Status DC Potassium Phosphate 2000 mg 2,000 mg Q4H PRN PO For Phosphorus < 2.5 mg/dL; Start 10/07/16 at 08:00; Stop 10/12/16 at 13:11; Status DC Sodium Phosphate/ Sodium Chloride (Sodium Phosphate Inj/NS 250 ml Inj) 250 ml @ 42 mls/hr UNSCH PRN IV For Phosphorus < 2.5 mg/dL; Start 10/07/16 at 08:00; Stop 10/12/16 at 13:11; Status DC Potassium Phosphate 2000 mg 2,000 mg UNSCH PRN PO/TUBE SEE LABEL COMMENTS Last administered on 10/07/16 15:56; Start 10/07/16 at 08:00; Stop 10/12/16 at 13:11; Status DC Potassium Phosphate/Sodium Chloride (Potassium Phosphate Inj/NS 250 ml Inj) 260 ml @ 42 mls/hr UNSCH PRN IV SEE LABEL COMMENTS Last administered on 10/08/16 11:23; Start 10/07/16 at 08:00; Stop 10/12/16 at 13:11; Status DC Clonidine (Catapres) 0.1 mg Q8H PRN NG SBP>170, DBP>90 Last administered on 00:28; Start 10/09/16 at 16:15; Stop 10/18/16 at 14:41; Status DC Polyethylene Glycol (Miralax) 17 gm DAILY PO Last administered on 10/28/16 09: 09; Start 10/10/16 at 14:00; Stop 10/30/16 at 15:12; Status DC Lactulose (Lactulose Liq) 30 ml DAILY PO Last administered on 10/28/16 09:09; Start 10/10/16 at 14:00; Stop 10/30/16 at 15:12; Status DC Metoprolol Tartrate 25 mg 25 mg Q6H PO Last administered on 10/18/16 09:36; Start 10/10/16 at 14:00; Stop 10/18/16 at 14:41; Status DC Labetalol HCl 500 mg/Sodium Chloride 250 ml @ 0 mls/hr TITRATE IV ; Start at 17:00; Stop 10/18/16 at 14:41; Status DC Sodium Chloride (NS 250 ml Inj) 250 ml @ As Directed STK-MED ONCE .ROUTE ; Start 10/11/16 at 02:29; Stop 10/11/16 at 02:30; Status DC Nicardipine HCl (Cardene Inj) 25 mg STK-MED ONCE .ROUTE ; Start 10/11/16 at 02: 29; Stop 10/11/16 at 02:30; Status DC Tamsulosin HCl (Flomax) 0.4 mg Q12HR PO Last administered on 10/17/16 07:16; Start 10/11/16 at 09:00; Stop 10/18/16 at 14:41; Status DC Epinephrine HCl (EPINEPHrine (1:10,000) INJ) 1 mg STK-MED ONCE .ROUTE ; Start at 09:51; Stop 10/11/16 at 09:52; Status DC Atropine Sulfate (Atropine Inj) 1 mg STK-MED ONCE .ROUTE ; Start 10/11/16 at 09: 51; Stop 10/11/16 at 09:52; Status DC Lidocaine HCl (Xylocaine 2% Inj) 100 mg STK-MED ONCE .ROUTE ; Start 10/11/16 at 09:51; Stop 10/11/16 at 09:52; Status DC Iohexol (Omnipaque 350 Inj) 100 ml STK-MED ONCE IV Last administered on 10:56; Start 10/11/16 at 10:56; Stop 10/11/16 at 10:57; Status DC Norepinephrine Bitartrate 4 mg 4 mg STK-MED ONCE .ROUTE ; Start 10/11/16 at 20: 25; Stop 10/11/16 at 20:26; Status DC Aztreonam 2000 mg/ Sodium Chloride 100 ml @ 200 mls/hr Q8H IV Last administered on 10/19/16 01:39; Start 10/12/16 at 02:00; Stop 10/19/16 at 07:38 ; Status DC Pharmacy Profile Note 0 ml @ 0 mls/hr UNSCH OTHER ; Start 10/12/16 at 02:15; Stop 10/13/16 at 17:17; Status DC Metronidazole 100 ml @ 100 mls/hr Q6H IV Last administered on 10/19/16 03:33 ; Start 10/12/16 at 03:00; Stop 10/19/16 at 07:39; Status DC Vancomycin HCl 2500 mg/Sodium Chloride 525 ml @ 250 mls/hr ONCE ONCE IV Last administered on 10/12/16 04:00; Start 10/12/16 at 04:00; Stop 10/12/16 at 06:05 ; Status DC Vancomycin HCl/ Sodium Chloride (Vancomycin Inj/ NS 500 ml Inj) 520 ml @ 250 mls/hr ONCE ONCE IV Last administered on 10/13/16 11:30; Start 10/13/16 at 11 :00; Stop 10/13/16 at 17:17; Status DC Epinephrine HCl (EPINEPHrine (1:10,000) INJ) 1 mg STK-MED ONCE .ROUTE ; Start at 03:26; Stop 10/14/16 at 03:27; Status DC Atropine Sulfate (Atropine Inj) 1 mg STK-MED ONCE .ROUTE ; Start 10/14/16 at 03: 26; Stop 10/14/16 at 03:27; Status DC Lidocaine HCl 100 mg 100 mg STK-MED ONCE .ROUTE ; Start 10/14/16 at 03:27; Stop 10/14/16 at 03:28; Status DC Potassium Chloride 100 ml @ 50 mls/hr Q2H PRN IV For Potassium 2.8 - 3.2 mEq/ L Last administered on 10/30/16 05:12; Start 10/14/16 at 16:00; Stop 10/30/16 at 15:11; Status DC Potassium Chloride (KCl 20 Meq Premix Inj) 100 ml @ 50 mls/hr Q2H PRN IV For Potassium 2.8 - 3.2 mEq/L Last administered on 10/30/16 13:40; Start 10/14/16 at 16:00; Stop 10/30/16 at 15:11; Status DC Potassium Bicarb/ Potassium Chloride 50 meq 50 meq UNSCH PRN PO For Potassium 3.3 - 3.5 mEq/L Last administered on 10/30/16 05:12; Start 10/14/16 at 16:00; Stop 10/30/16 at 15:11; Status DC Potassium Chloride 100 ml @ 25 mls/hr UNSCH PRN IV For Potassium 3.3 - 3.5 mEq /L Last administered on 10/18/16 06:50; Start 10/14/16 at 16:00; Stop 10/30/16 at 15:11; Status DC Potassium Chloride 100 ml @ 50 mls/hr Q2H PRN IV For Potassium 3.3 - 3.5 mEq/ L Last administered on 10/27/16 07:41; Start 10/14/16 at 16:00; Stop 10/30/16 at 15:11; Status DC Magnesium Sulfate/ Sodium Chloride (Magnesium Sulfate Inj/NS Inj) 100 ml @ 50 mls/hr UNSCH PRN IV For Magnesium 0.9 - 1.1 mg/dL; Start 10/14/16 at 16:00; Stop 10/30/16 at 15:11; Status DC Magnesium Oxide 800 mg 800 mg UNSCH PRN PO For Magnesium 1.2 - 1.6 mg/dL; Start 10/14/16 at 16:00; Stop 10/30/16 at 15:11; Status DC Magnesium Sulfate/ Sodium Chloride (Magnesium Sulfate Inj/NS Inj) 100 ml @ 50 mls/hr UNSCH PRN IV For Magnesium 1.2 - 1.6 mg/dL; Start 10/14/16 at 16:00; Stop 10/30/16 at 15:11; Status DC Potassium Phosphate 2000 mg 2,000 mg Q4H PRN PO For Phosphorus < 2.5 mg/dL Last administered on 10/17/16 02:00; Start 10/14/16 at 16:00; Stop 10/30/16 at 15:11; Status DC Sodium Phosphate/ Sodium Chloride (Sodium Phosphate Inj/NS 250 ml Inj) 250 ml @ 42 mls/hr UNSCH PRN IV For Phosphorus < 2.5 mg/dL Last administered on 20:31; Start 10/14/16 at 16:00; Stop 10/30/16 at 15:11; Status DC Potassium Phosphate 2000 mg 2,000 mg UNSCH PRN PO/TUBE SEE LABEL COMMENTS Last administered on 10/18/16 06:51; Start 10/14/16 at 16:00; Stop 10/30/16 at 15:11 ; Status DC Potassium Phosphate/Sodium Chloride (Potassium Phosphate Inj/NS 250 ml Inj) 260 ml @ 42 mls/hr UNSCH PRN IV SEE LABEL COMMENTS; Start 10/14/16 at 16:00; Stop 10/30/16 at 15:11; Status DC Verapamil HCl (Isoptin Inj) 15 mg STK-MED ONCE .ROUTE Last administered on 10/15 12:55; Start 10/15/16 at 12:55; Stop 10/15/16 at 12:56; Status DC Verapamil HCl (Isoptin Inj) 5 mg STK-MED ONCE .ROUTE Last administered on t 13:33; Start 10/15/16 at 13:33; Stop 10/15/16 at 13:34; Status DC Iodixanol 75 ml 75 ml STK-MED ONCE I-ARTERIAL Last administered on 10/15/16t 13 :52; Start 10/15/16 at 13:52; Stop 10/15/16 at 13:53; Status DC Sodium Chloride (NS 250 ml Inj) 250 ml @ As Directed STK-MED ONCE .ROUTE ; Start 10/15/16 at 20:40; Stop 10/15/16 at 20:41; Status DC Nicardipine HCl 25 mg 25 mg STK-MED ONCE .ROUTE ; Start 10/15/16 at 20:40; Stop 10/15/16 at 20:41; Status DC Sodium Chloride (NS 250 ml Inj) 250 ml @ As Directed STK-MED ONCE .ROUTE ; Start 10/15/16 at 22:51; Stop 10/15/16 at 22:52; Status DC Nicardipine HCl 25 mg 25 mg STK-MED ONCE .ROUTE ; Start 10/15/16 at 22:51; Stop 10/15/16 at 22:52; Status DC Sodium Chloride (NS 250 ml Inj) 250 ml @ As Directed STK-MED ONCE .ROUTE ; Start 10/16/16 at 01:03; Stop 10/16/16 at 01:04; Status DC Nicardipine HCl 25 mg 25 mg STK-MED ONCE .ROUTE ; Start 10/16/16 at 01:03; Stop 10/16/16 at 01:05; Status DC Sodium Chloride (NS 250 ml Inj) 250 ml @ As Directed STK-MED ONCE .ROUTE ; Start 10/16/16 at 01:47; Stop 10/16/16 at 01:48; Status DC Nicardipine HCl (Cardene Inj) 25 mg STK-MED ONCE .ROUTE ; Start 10/16/16 at 01: 47; Stop 10/16/16 at 01:48; Status DC Nicardipine HCl (Cardene Inj) 25 mg STK-MED ONCE .ROUTE ; Start 10/16/16 at 03: 51; Stop 10/16/16 at 03:52; Status DC Epinephrine HCl (EPINEPHrine (1:10,000) INJ) 1 mg STK-MED ONCE .ROUTE ; Start at 03:57; Stop 10/16/16 at 03:58; Status DC Atropine Sulfate (Atropine Inj) 1 mg STK-MED ONCE .ROUTE ; Start 10/16/16 at 03: 57; Stop 10/16/16 at 03:58; Status DC Lidocaine HCl (Xylocaine 2% Inj) 100 mg STK-MED ONCE .ROUTE ; Start 10/16/16 at 03:57; Stop 10/16/16 at 03:58; Status DC Diphenhydramine HCl (Benadryl Inj) 25 mg Q6H PRN IV RASH Last administered on 03:12; Start 10/16/16 at 08:15; Stop 10/18/16 at 14:41; Status DC Nimodipine (Nimotop) 30 mg Q2H PO Last administered on 10/26/16 06:53; Start 10/17/16 at 11:00; Stop 10/26/16 at 08:46; Status DC Iohexol 70 ml 70 ml STK-MED ONCE IV Last administered on 10/19/16 14:36; Start 10/19/16 at 14:36; Stop 10/19/16 at 14:37; Status DC Phenylephrine HCl/ Sodium Chloride (Neosynephrine Inj/NS 500 ml Inj) 500 ml @ 0 mls/hr TITRATE IV Last administered on 10/20/16 16:29; Start 10/19/16 at 16:30 ; Stop 10/23/16 at 10:42; Status DC Alteplase, Recombinant (Cathflo Activase Inj) 2 mg UNSCH PRN IV FLUSH PICC LINE OCCLUSION Last administered on 11/01/16 21:47; Start 10/19/16 at 16:15; Stop 11/05/16 at 13:47; Status DC Verapamil HCl (Isoptin Inj) 5 mg STK-MED ONCE .ROUTE Last administered on 17:20; Start 10/19/16 at 16:05; Stop 10/19/16 at 16:06; Status DC Midazolam HCl (Versed Inj) 2 mg STK-MED ONCE .ROUTE Last administered on 17:18; Start 10/19/16 at 17:18; Stop 10/19/16 at 17:19; Status DC Verapamil HCl (Isoptin Inj) 5 mg STK-MED ONCE .ROUTE Last administered on 17:27; Start 10/19/16 at 17:27; Stop 10/19/16 at 17:28; Status DC Iodixanol (Visipaque 320 Inj) 100 ml STK-MED ONCE I-ARTERIAL Last administered on 10/19/16 18:08; Start 10/19/16 at 18:08; Stop 10/19/16 at 18:09; Status DC Diphenhydramine HCl 6.25 mg 6.25 mg Q4H PRN IV PUSH itching, rash Last administered on 11/04/16 20:45; Start 10/19/16 at 19:15; Stop 11/05/16 at 13:47; Status DC Vancomycin HCl 1250 mg/Sodium Chloride 262.5 ml @ 250 mls/hr ONCE ONCE IV ; Start 10/20/16 at 12:30; Stop 10/20/16 at 12:33; Status DC Cefepime HCl 2000 mg/Sodium Chloride 100 ml @ 200 mls/hr Q8H IV Last administered on 10/29/16 21:00; Start 10/20/16 at 13:00; Stop 10/29/16 at 23:59 ; Status DC Metronidazole 100 ml @ 100 mls/hr Q6H IV Last administered on 10/23/16 08:13 ; Start 10/20/16 at 14:00; Stop 10/23/16 at 10:43; Status DC Vancomycin HCl 1250 mg/Sodium Chloride 262.5 ml @ 250 mls/hr ONCE ONCE IV Last administered on 10/20/16 15:00; Start 10/20/16 at 15:00; Stop 10/20/16 at 16:02; Status DC Vasopressin/ Dextrose (Pitressin Inj/ D5W 100 ml Inj) 100 ml @ 6 mls/hr [id number] IV Last administered on 10/23/16 04:16; Start 10/20/16 at 15:23; Stop at 10:43; Status DC Dextrose (D50w (Vial) Inj) 25 ml UNSCH PRN IV PUSH HYPOGLYCEMIA-SEE COMMENTS; Start 10/20/16 at 17:15; Stop 10/30/16 at 15:07; Status DC Insulin Human Regular 1 1 Q6HR SQ Last administered on 10/23/16 05:39; Start 10/20/16 at 18:00; Stop 10/30/16 at 15:07; Status DC Sodium Chloride 500 ml @ 500 mls/hr BOLUS ONCE IV Last administered on 18:27; Start 10/20/16 at 17:15; Stop 10/20/16 at 18:14; Status DC Sodium Chloride 1,000 ml @ 999 mls/hr BOLUS ONCE IV Last administered on 10/21 10:01; Start 10/21/16 at 08:30; Stop 10/21/16 at 09:30; Status DC Sodium Chloride (NS 1000 ml Inj) 1,000 ml @ 60 mls/hr [id number] IV Last administered on 11/18/16 00:21; Start 10/21/16 at 08:30; Stop 11/18/16 at 08:54 ; Status DC Sodium Chloride 2 gm 2 gm Q8HR PO Last administered on 10/22/16 04:56; Start 10/21/16 at 08:30; Stop 10/22/16 at 10:01; Status DC Sodium Chloride (NS 500 ml Inj) 500 ml @ 500 mls/hr BOLUS ONCE IV Last administered on 10/21/16 20:06; Start 10/21/16 at 19:15; Stop 10/21/16 at 20:14 ; Status DC Fludrocortisone Acetate 0.1 mg 0.1 mg Q12HR PO Last administered on 10/22/16 09:13; Start 10/22/16 at 09:00; Stop 10/22/16 at 16:26; Status DC Sodium Chloride 500 ml @ 20 mls/hr ONCE ONCE IV Last administered on 06:15; Start 10/22/16 at 06:15; Stop 10/23/16 at 07:14; Status DC Sodium Chloride (NS 1000 ml Inj) 1,000 ml @ 999 mls/hr BOLUS ONCE IV Last administered on 10/22/16 06:15; Start 10/22/16 at 06:15; Stop 10/22/16 at 07:15 ; Status DC Sodium Chloride (Sodium Chloride) 3 gm Q8HR PO Last administered on 11/16/16 05:48; Start 10/22/16 at 14:00; Stop 11/16/16 at 09:16; Status DC Fludrocortisone Acetate 0.2 mg 0.2 mg Q12HR PO Last administered on 11/28/16 08:17; Start 10/22/16 at 21:00 Sodium Chloride 1,000 ml @ 999 mls/hr BOLUS ONCE IV Last administered on 10/22 16:49; Start 10/22/16 at 16:30; Stop 10/22/16 at 17:30; Status DC Sodium Chloride 500 ml @ 40 mls/hr CONTINUOUS IV Last administered on 18:50; Start 10/22/16 at 16:30; Stop 10/23/16 at 19:54; Status DC Sodium Chloride (NS 500 ml Inj) 500 ml @ 500 mls/hr BOLUS ONCE IV Last administered on 10/23/16 06:46; Start 10/23/16 at 06:45; Stop 10/23/16 at 07:44 ; Status DC Cisatracurium Besylate 20 mg 20 mg STAT ONCE IV Last administered on 11:35; Start 10/23/16 at 10:30; Stop 10/23/16 at 11:01; Status DC Propofol (Diprivan 1000 Mg/100ml Inj) 100 ml @ 0 mls/hr TITRATE IV ; Start 10/23 at 10:30; Stop 10/25/16 at 11:27; Status DC Fentanyl Citrate (fentaNYL INJ) 100 mcg STAT ONCE IV PUSH Last administered on 10/23/16 11:35; Start 10/23/16 at 10:30; Stop 10/23/16 at 11:02; Status DC Enoxaparin Sodium 40 mg 40 mg Q24H SQ Last administered on 11/27/16 19:42; Start 10/23/16 at 21:00 Sodium Chloride (Sodium Chloride 3% Inj) 500 ml @ 20 mls/hr CONTINUOUS IV Last administered on 10/24/16 10:32; Start 10/23/16 at 20:00; Stop 10/25/16 at 20:01; Status DC Propofol 130 mg 130 mg STK-MED ONCE IV ; Start 10/24/16 at 08:53; Stop 10/24/16 at 10:11; Status DC Potassium Chloride 100 ml @ 50 mls/hr Q2H PRN IV For Potassium 2.8 - 3.2 mEq/ L Last administered on 11/03/16 05:17; Start 10/24/16 at 15:15; Stop 11/04/16 at 12:19; Status DC Potassium Chloride (KCl 20 Meq Premix Inj) 100 ml @ 50 mls/hr Q2H PRN IV For Potassium 2.8 - 3.2 mEq/L Last administered on 10/31/16 16:39; Start 10/24/16 at 15:15; Stop 11/04/16 at 12:19; Status DC Potassium Bicarb/ Potassium Chloride 50 meq 50 meq UNSCH PRN PO For Potassium 3.3 - 3.5 mEq/L; Start 10/24/16 at 15:15; Stop 11/04/16 at 12:19; Status DC Potassium Chloride 100 ml @ 25 mls/hr UNSCH PRN IV For Potassium 3.3 - 3.5 mEq /L Last administered on 10/26/16 21:47; Start 10/24/16 at 15:15; Stop 11/04/16 at 12:19; Status DC Potassium Chloride 100 ml @ 50 mls/hr Q2H PRN IV For Potassium 3.3 - 3.5 mEq/L ; Start 10/24/16 at 15:15; Stop 11/04/16 at 12:19; Status DC Magnesium Sulfate/ Sodium Chloride (Magnesium Sulfate Inj/NS Inj) 100 ml @ 50 mls/hr UNSCH PRN IV For Magnesium 0.9 - 1.1 mg/dL; Start 10/24/16 at 15:15; Stop 11/04/16 at 12:19; Status DC Magnesium Oxide 800 mg 800 mg UNSCH PRN PO For Magnesium 1.2 - 1.6 mg/dL; Start 10/24/16 at 15:15; Stop 11/04/16 at 12:19; Status DC Magnesium Sulfate/ Sodium Chloride (Magnesium Sulfate Inj/NS Inj) 100 ml @ 50 mls/hr UNSCH PRN IV For Magnesium 1.2 - 1.6 mg/dL; Start 10/24/16 at 15:15; Stop 11/04/16 at 12:19; Status DC Potassium Phosphate 2000 mg 2,000 mg Q4H PRN PO For Phosphorus < 2.5 mg/dL; Start 10/24/16 at 15:15; Stop 11/04/16 at 12:19; Status DC Sodium Phosphate/ Sodium Chloride (Sodium Phosphate Inj/NS 250 ml Inj) 250 ml @ 42 mls/hr UNSCH PRN IV For Phosphorus < 2.5 mg/dL; Start 10/24/16 at 15:15; Stop 11/04/16 at 12:19; Status DC Potassium Phosphate 2000 mg 2,000 mg UNSCH PRN PO/TUBE SEE LABEL COMMENTS; Start 10/24/16 at 15:15; Stop 11/04/16 at 12:19; Status DC Potassium Phosphate 30 mmol/ Sodium Chloride 260 ml @ 42 mls/hr UNSCH PRN IV SEE LABEL COMMENTS; Start 10/24/16 at 15:15 Sodium Chloride 500 ml @ 10 mls/hr Q24H IV Last administered on 10/29/16 20: 54; Start 10/25/16 at 21:00; Stop 10/30/16 at 12:48; Status DC Cefepime HCl/ Sodium Chloride (Maxipime Inj/NS Inj) 100 ml @ 200 mls/hr Q8HR IV Last administered on 11/06/16 05:05; Start 10/30/16 at 14:00; Stop 11/06/16 at 12:00; Status DC Fentanyl Citrate (fentaNYL INJ) 50 mcg Q3H PRN IV PAIN 1-10 Last administered on 11/05/16 05:07; Start 10/30/16 at 15:15; Stop 11/05/16 at 13:47; Status DC Docusate Sodium 100 mg 100 mg Q12H G-TUBE Last administered on 11/03/16 17:00; Start 10/31/16 at 17:00; Stop 11/06/16 at 16:48; Status DC Potassium Chloride 100 ml @ 50 mls/hr Q2H PRN IV For Potassium 2.8 - 3.2 mEq/ L Last administered on 11/20/16 07:31; Start 11/03/16 at 05:15 Potassium Chloride (KCl 20 Meq Premix Inj) 100 ml @ 50 mls/hr Q2H PRN IV For Potassium 2.8 - 3.2 mEq/L Last administered on 11/27/16 08:38; Start 11/03/16 at 05:15 Potassium Bicarb/ Potassium Chloride 50 meq 50 meq UNSCH PRN PO For Potassium 3.3 - 3.5 mEq/L Last administered on 11/22/16 07:07; Start 11/03/16 at 05:15 Potassium Chloride 100 ml @ 25 mls/hr UNSCH PRN IV For Potassium 3.3 - 3.5 mEq /L Last administered on 11/19/16 01:44; Start 11/03/16 at 05:15 Potassium Chloride 100 ml @ 50 mls/hr Q2H PRN IV For Potassium 3.3 - 3.5 mEq/ L Last administered on 11/25/16 08:51; Start 11/03/16 at 05:15 Magnesium Sulfate/ Sodium Chloride (Magnesium Sulfate Inj/NS Inj) 100 ml @ 50 mls/hr UNSCH PRN IV For Magnesium 0.9 - 1.1 mg/dL; Start 11/03/16 at 05:15 Magnesium Oxide 800 mg 800 mg UNSCH PRN PO For Magnesium 1.2 - 1.6 mg/dL; Start 11/03/16 at 05:15 Magnesium Sulfate/ Sodium Chloride (Magnesium Sulfate Inj/NS Inj) 100 ml @ 50 mls/hr UNSCH PRN IV For Magnesium 1.2 - 1.6 mg/dL; Start 11/03/16 at 05:15 Potassium Phosphate 2000 mg 2,000 mg Q4H PRN PO For Phosphorus < 2.5 mg/dL; Start 11/03/16 at 05:15 Sodium Phosphate/ Sodium Chloride (Sodium Phosphate Inj/NS 250 ml Inj) 250 ml @ 42 mls/hr UNSCH PRN IV For Phosphorus < 2.5 mg/dL; Start 11/03/16 at 05:15 Potassium Phosphate (K-Phos) 2,000 mg UNSCH PRN PO/TUBE SEE LABEL COMMENTS; Start 11/03/16 at 05:15 Furosemide 40 mg 40 mg ONCE ONCE IV PUSH Last administered on 11/03/16 18:16; Start 11/03/16 at 18:15; Stop 11/03/16 at 18:16; Status DC Potassium Chloride/Sodium Chloride (KCl Inj/NS Inj) 115 ml @ 38.333 mls/ hr Q3H IV-CENTRAL Last administered on 11/03/16 22:53; Start 11/03/16 at 20:00; Stop 11/04/16 at 01:59; Status DC Labetalol HCl (Trandate) 100 mg Q8H PO Last administered on 11/28/16 13:22; Start 11/03/16 at 20:00 Hydralazine HCl (Apresoline) 50 mg Q12HR PO Last administered on 11/28/16 08: 17; Start 11/03/16 at 19:00 Amlodipine Besylate (Norvasc) 5 mg DAILY PO Last administered on 11/28/16 08: 18; Start 11/04/16 at 09:00 Nystatin (Mycostatin Powder) 1 applic TID TOPICAL Last administered on 13:00; Start 11/06/16 at 09:00 Lactobacillus Acidophilus (Lactinex) 1 tab Q12HR PO Last administered on 08:17; Start 11/06/16 at 21:00 Quetiapine Fumarate (SEROquel) 25 mg BID@09,12 PO Last administered on 13:22; Start 11/07/16 at 09:00 Multi-Ingredient Mouthwash/Gargle (Magic Mouthwash Adult Liq) 5 ml QID SWISH- SWAL Last administered on 11/16/16 13:00; Start 11/06/16 at 18:00; Stop at 17:59; Status DC Docusate Sodium (Colace Liq) 100 mg Q12H PRN G-TUBE constipation; Start at 17:00 Potassium Bicarbonate (Effer-K Eff) 25 meq DAILY PO Last administered on 09:00; Start 11/06/16 at 17:00; Stop 11/09/16 at 16:59; Status DC Diphenhydramine HCl (Benadryl Inj) 25 mg ONCE ONCE IV PUSH Last administered on 11/08/16 01:55; Start 11/08/16 at 01:45; Stop 11/08/16 at 01:46; Status DC Loperamide HCl (Imodium) 2 mg UNSCH PRN PO DIARRHEA Last administered on 21:16; Start 11/09/16 at 09:45 Diphenoxylate HCl/ Atropine (Lomotil Tab) 1 tab Q6H PRN PO severe diarrhea ; Start 11/09/16 at 09:45 Metronidazole (Flagyl) 500 mg Q8H PO Last administered on 11/28/16 08:17; Start 11/09/16 at 16:00 Thrombin (Thrombin Top Soln) 10,000 units STK-MED ONCE .ROUTE ; Start 11/10/16 at 08:31; Stop 11/10/16 at 08:32; Status DC Gelatin (Gelfoam 100 Top) 1 foam STK-MED ONCE .ROUTE ; Start 11/10/16 at 08:31; Stop 11/10/16 at 08:32; Status DC Potassium Bicarb/ Potassium Chloride 50 meq 50 meq NOW ONCE NG Last administered on 11/15/16 20:42; Start 11/15/16 at 20:45; Stop 11/15/16 at 20:46 ; Status DC Potassium Chloride (KCl 40 Meq Premix Inj) 100 ml @ 25 mls/hr Q4H IV Last administered on 11/16/16 01:13; Start 11/15/16 at 21:00; Stop 11/16/16 at 04:59 ; Status DC Sodium Chloride (Sodium Chloride) 2 gm Q8HR PO Last administered on 11/21/16 13:21; Start 11/16/16 at 14:00; Stop 11/21/16 at 17:30; Status DC Diphenhydramine HCl (Benadryl Inj) 50 mg Q6H PRN IV ITCHING Last administered on 11/28/16 04:17; Start 11/16/16 at 23:00 Diphenhydramine HCl (Benadryl Inj) 50 mg STK-MED ONCE .ROUTE ; Start 11/16/16 at 22:55; Stop 11/16/16 at 22:56; Status DC Quetiapine Fumarate (SEROquel) 25 mg HS PO Last administered on 11/27/16 19:41 ; Start 11/20/16 at 21:00 Sodium Chloride (Sodium Chloride) 2 gm BID PO Last administered on 11/23/16 07 :28; Start 11/22/16 at 09:00; Stop 11/23/16 at 11:40; Status DC Potassium Chloride (KCl) 20 meq BID PO Last administered on 11/24/16 20:18; Start 11/23/16 at 09:00; Stop 11/25/16 at 14:47; Status DC Sodium Chloride (Sodium Chloride) 2 gm DAILY PO Last administered on 11/28/16 08:15; Start 11/24/16 at 09:00 Thrombin (Thrombin Top Soln) 10,000 units STK-MED ONCE .ROUTE Last administered on 11/24/16 15:50; Start 11/24/16 at 07:55; Stop 11/24/16 at 07:56 ; Status DC Gelatin (Gelfoam 100 Top) 1 foam STK-MED ONCE .ROUTE Last administered on 15:50; Start 11/24/16 at 07:56; Stop 11/24/16 at 07:57; Status DC Lidocaine/ Epinephrine (Xylocaine-Epi 1%-1:100,000 Inj) 50 ml STK-MED ONCE .ROUTE Last administered on 11/24/16 15:50; Start 11/24/16 at 07:56; Stop at 07:57; Status DC Gentamicin Sulfate (Gentamicin Inj) 240 mg STK-MED ONCE .ROUTE Last administered on 11/24/16 15:50; Start 11/24/16 at 07:56; Stop 11/24/16 at 07:57 ; Status DC Vancomycin HCl 1000 mg 1,000 mg STK-MED ONCE .ROUTE Last administered on 15:40; Start 11/24/16 at 14:41; Stop 11/24/16 at 14:42; Status DC Sodium Chloride (NS 250 ml Inj) 250 ml @ As Directed STK-MED ONCE .ROUTE ; Start 11/24/16 at 14:41; Stop 11/24/16 at 14:42; Status DC Fentanyl Citrate 250 mcg 250 mcg STK-MED ONCE .ROUTE ; Start 11/24/16 at 17:28; Stop 11/24/16 at 17:29; Status DC Potassium Chloride/Sodium Chloride (1/2 NS + KCl 20 Meq Inj) 1,000 ml @ 84 mls/ hr [id number] IV Last administered on 11/24/16 20:52; Start 11/24/16 at 17:45; Stop 11/24/16 at 23:44; Status DC Miscellaneous Information ALL NURSING DEPARTME... 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 ICD Code: I60.8 Status: Acute (2) Hypertension ICD Code: I10 Status: Chronic (3) Major neurocognitive disorder due to vascular disease, without behavioral disturbance, severe ICD Code: F01.50 Status: Acute (4) Septic shock ICD Code: A41.9 Status: Resolved (5) Hydrocephalus ICD Code: G91.9 Status: Acute (6) Intracranial hemorrhage ICD Code: I62.9 Status: Acute (7) Major neurocognitive disorder as late effect of traumatic brain injury with behavioral disturbance ICD Code: S06.9X9S Status: Acute (8) Encephalopathy ICD Code: G93.40 Status: Acute (9) Sepsis ICD Code: A41.9 Status: Resolved (10) Pneumonia ICD Code: J18.9 Status: Acute (11) Protein-calorie malnutrition, mild ICD Code: E44.1 Status: Acute (12) Acute respiratory failure with hypoxia and hypercarbia ICD Code: J96.01 Status: Acute Assessment and Plan Aneurysmal subarachnoid hemorrhage, occurred on 10/05/16: -Appreciate neurosurgery recommendations. Okay for Lovenox per neurosurgery. Continue Keppra for seizure prophylaxis. -Status post FURNITURE REMOVALIST shunt on 11/24/2016 Projectile vomiting on 11/26/2016 with mild epigastric pain -We'll get a KUB. He has been asymptomatic since then. -Patient is on a PPI. -Continue to monitor clinically. Encephalopathy: -Secondary to above. Mental status is improving slowly. Acute hypoxic, hypercarbic respiratory failure: -Tracheostomy 10/23/16. Continue supplemental oxygen. DuoNeb as needed, scheduled. Trach management per pulmonology. Septic shock: Resolved. Possible cerebral salt wasting: - Continue Florinef, sodium chloride tablets. Mild acute protein calorie malnutrition -Continue tube feedings. Monitor labs. Pneumonia: - Completed antibiotics. C. difficile colitis: Continue Flagyl. Repeat C. difficile studies are negative. Hyperglycemia of critical illness: - Improved. Hydrocephalus: -Repeat head CT unchanged. FURNITURE REMOVALIST shunt placement today. Hypokalemia -: Improved DVT prophylaxis: SCDs, YOUSIF hose, Lovenox. GI prophylaxis: Protonix. . Discharge Planning Patient stable to be transferred out of [facility]. Problem Qualifiers (1) Hypertension: Qualified Code: I10 - Essential hypertension Snadra Ramos MD November 28, 2016 15:27
--- NOTE | 2016-11-28 16:46 | RADRPT ---
EXAM DATE/TIME: 11/28/2016 16:00 [facility] COMPARISON: No previous studies available for comparison. INDICATIONS : Abdominal pain. MEDICAL HISTORY : None. SURGICAL HISTORY : None. ENCOUNTER: Initial ACUITY: 1 day PAIN SCORE: Non-responsive. LOCATION: Bilateral abdomen. FINDINGS: There is no evidence of bowel obstruction, ileus or perforation. Degenerative changes and scoliosis of the thoracolumbar spine are noted. Degenerative changes are also noted involving the hip joints b ilaterally. CONCLUSION: 1. No evidence of bowel obstruction, ileus or perforation. 2. Degenerative changes and scoliosis of the thoracolumbar spine. 3. Degenerative changes involving the hip joints bilaterally. Juan Worley MD on November 28, 2016 at 16:32 Board Certified Radiologist. This report was verified electronically.
--- NOTE | 2016-11-28 17:11 | HHI.PR ---
Subjective Remarks 51 YOWM with TBI,RF,Trach On trach collar Mod amount of trach secretions More awake, strong cough No Fever Objective Vital Signs Vital Signs Date Time Temp Pulse Resp B/P Pulse Ox O2 Delivery O2 Flow Rate FiO2 11/28/16 15:07 90 T-piece 21 11/28/16 12:00 115 11/28/16 10:00 119 11/28/16 08:00 108 11/28/16 07:00 98 Trach Collar 6.00 28 11/28/16 06:00 91 11/28/16 04:00 98.2 110 26 160/90 93 11/28/16 04:00 110 11/28/16 02:00 110 11/28/16 00:00 98.5 114 25 146/92 95 11/28/16 00:00 106 11/27/16 22:00 106 11/27/16 21:05 95 Trach Collar 7.00 21 11/27/16 20:00 99.0 114 24 140/70 93 11/27/16 20:00 106 11/27/16 20:00 98 Trach Collar 6.00 28 11/27/16 18:00 106 I/O 11/27/16 11/27/16 11/27/16 11/28/16 11/28/16 11/28/16 06:59 14:59 22:59 06:59 14:59 22:59 Intake Total 350 ml 627 ml 567 ml 476 ml 780 ml Output Total 1000 ml 325 ml 350 ml 600 ml 350 ml Balance -650 ml 302 ml 217 ml -124 ml 430 ml IV Total 0 ml 107 ml 0 ml Tube Feeding 350 ml 395 ml 467 ml 376 ml 450 ml Tube Irrigant 125 ml 100 ml 100 ml 330 ml Output Urine Total 1000 ml 325 ml 350 ml 600 ml 350 ml # Bowel Movements 0 2 0 Result Diagram: 11/27/1641211/27/16412 Objective Remarks GENERAL: WBWN male, on Trach collar SKIN: Warm and dry. HEAD: Normocephalic. EYES: No scleral icterus. No injection or drainage. NECK: Supple, trachea midline. No JVD or lymphadenopathy. Trach collar CARDIOVASCULAR: Regular rate and rhythm without murmurs, gallops, or rubs. RESPIRATORY: Breath sounds equal bilaterally. No accessory muscle use. GASTROINTESTINAL: Abdomen soft, non-tender, nondistended. PEG tube in place MUSCULOSKELETAL: No cyanosis, or edema. BACK: Nontender without obvious deformity. No CVA tenderness. A/P Assessment and Plan RF, s/p Trach Intracranial bleed Hydrocephalous HTN C.diff positive PLAN: Cont Flagyl Trach collar Secretions decreased DC Plans underway. Renard Virgen MD November 28, 2016 17:11
[2016-11-28] MEDS: ENOXAPARIN SODIUM 40 MG/0.4 ML SYRINGE SQ SCH (21:36)
[2016-11-29] VITALS (7 sets, daily range): BP systolic 100–160; BP diastolic 69–105; PULSE 23–114; RESP 20–30; TEMP 97.5–98.9; O2SAT 92–100
[2016-11-29] MEDS: metroNIDAZOLE 500 MG TAB PO SCH ×4 (00:19→23:30)
[2016-11-29 04:40] LABS: CALCIUM 8.5 MG/DL (8.5-10.1); CREATININE 0.85 MG/DL (0.60-1.30)
[2016-11-29 04:42] LABS: HEMATOCRIT 32.3 % (39.0-51.0); HEMOGLOBIN 10.3 GM/DL (13.0-17.0); MEAN CORPUSCULAR HEMOGLOBIN 27.8 PG (27.0-34.0); MEAN PLATELET VOLUME 8.7 FL (7.0-11.0); PLATELET COUNT 284 TH/MM3 (150-450); RED BLOOD COUNT 3.71 MIL/MM3 (4.50-5.90); WHITE BLOOD COUNT 10.1 TH/MM3 (4.0-11.0)
[2016-11-29] MEDS: LABETALOL HCL 100 MG TAB PO SCH ×3 (05:36→20:57)
[2016-11-29] MEDS: POTASSIUM CHLOR 20 MEQ PREMIX 100 ML IV PRN (06:01)
[2016-11-29] MEDS: NYSTATIN 100,000 U/GM PWD 15 GM BTL TOPICAL SCH ×3 (09:00→18:00)
[2016-11-29] MEDS: ARTIFICIAL TEARS OPTH SOLN 15 ML BTL EACH EYE SCH ×3 (09:00→18:00)
[2016-11-29] MEDS: SODIUM CHLORIDE 1 GRAM TAB PO SCH (09:00)
[2016-11-29] MEDS: PRAVASTATIN SOD 40 MG TAB PO SCH (09:00)
[2016-11-29] MEDS: POTASSIUM CHLORIDE 25 MEQ EFFERVESCENT TAB NG SCH ×2 (09:21→20:58)
[2016-11-29] MEDS: QUEtiapine FUMARATE 25 MG TAB PO SCH ×3 (09:21→20:57)
[2016-11-29] MEDS: diphenhydrAMINE HCL 50 MG/ML VIAL IV PRN ×2 (09:21→23:29)
[2016-11-29] MEDS: LACTOBACILLUS ACIDOPHILUS TAB PO SCH ×2 (09:21→20:57)
[2016-11-29] MEDS: hydrALAZINE HCL 50 MG TAB PO SCH ×2 (09:22→20:57)
[2016-11-29] MEDS: amLODIPine BESYLATE 5 MG TAB PO SCH (09:22)
[2016-11-29] MEDS: PANTOPRAZOLE SODIUM 40 MG VIAL IV SCH (09:22)
[2016-11-29] MEDS: SODIUM CHLORIDE 0.9% FLUSH 10 ML FLUSH IV FLUSH SCH (09:23)
[2016-11-29] MEDS: FLUDROCORTISONE ACETATE 0.1 MG TAB PO SCH ×2 (09:23→20:57)
--- NOTE | 2016-11-29 12:47 | HHI.PR ---
Subjective Remarks Follow-up for intracranial bleed. Nurse had no complaints. Patient denies any pain. She denies any sinus of breathing. Patient follows commands. He remains afebrile. At night/when he is sleeping he continues to pull IVs and lines so restraints remain. Objective Vitals Vital Signs Date Time Temp Pulse Resp B/P Pulse Ox O2 Delivery O2 Flow Rate FiO2 11/29/16 08:09 98 Trach Collar 5.00 28 11/29/16 08:00 98.2 97 26 152/105 95 11/29/16 07:00 98 Trach Collar 6.00 28 11/29/16 04:00 98.2 114 25 160/92 95 11/29/16 04:00 112 11/29/16 00:00 98.7 114 20 146/92 95 11/29/16 00:00 100 11/28/16 20:00 100 11/28/16 20:00 98.3 95 15 115/69 95 11/28/16 19:59 93 Trach Collar 28 11/28/16 19:00 98 Trach Collar 6.00 28 11/28/16 16:00 95 11/28/16 16:00 97.8 95 23 108/65 90 11/28/16 15:07 90 T-piece 21 I/O 11/28/16 11/28/16 11/28/16 11/29/16 11/29/16 11/29/16 07:00 15:00 23:00 07:00 15:00 23:00 Intake Total 476 ml 780 ml 780 ml 600 ml Output Total 600 ml 350 ml 300 ml 400 ml Balance -124 ml 430 ml 480 ml 200 ml IV Total 0 ml Tube Feeding 376 ml 450 ml 630 ml 500 ml Tube Irrigant 100 ml 330 ml 150 ml 100 ml Output Urine Total 600 ml 350 ml 300 ml 400 ml # Bowel Movements 2 0 1 1 Result Diagram: 11/29/1641511/29/16415 Objective Remarks General: No acute distress. In soft wrist and mitten restraints. Trach collar. Heart: Regular rate and rhythm. No murmur. Lungs: Clear to auscultation bilaterally. No wheezes, rales, or rhonchi. Abdomen: Soft, +mild TTP in epigastric area with deep palpation. , nondistended. Positive bowel sounds but mildly hypoactive. Extremities: No lower extremity edema. SCDs. Psych: Patient is alert and following commands. Procedures 10/05/16 right frontal twist drill for ventriculostomy placement 10/20/16 arterial line placement 10/23/16 bedside percutaneous tracheostomy under direct bronchoscopic visualization 10/24/16 PEG tube placement at bedside Medications and IVs Current Medications Propofol 100 ml @ As Directed STK-MED ONCE .ROUTE ; Start 10/05/16 at 01:16; Stop 10/05/16 at :17; Status DC Cefazolin Sodium/ Dextrose 50 ml @ As Directed STK-MED ONCE .ROUTE ; Start at 01:23; Stop 10/05/16 at 01:24; Status DC Cefazolin Sodium/ Dextrose (Ancef 2 Gm Premix) 50 ml @ 100 mls/hr ONCE STAT IV ; Start 10/05/16 at 01:26; Stop 10/05/16 at 01:55; Status DC Diphtheria/ Tetanus/Acell Pertussis (Boostrix Inj) 0.5 ml ONCE ONCE IM ; Start 10/05/16 at 01:26; Stop 10/05/16 at 01:28; Status DC Nicardipine HCl (Cardene Inj) 25 mg STK-MED ONCE .ROUTE ; Start 10/05/16 at 01:26 ; Stop 10/05/16 at 01:27; Status DC Nicardipine HCl 25 mg 25 mg STK-MED ONCE .ROUTE ; Start 10/05/16 at 01:27; Stop 10/05/16 at 01:28; Status DC Sodium Chloride 1,000 ml @ 0 mls/hr Q0M IV ; Start 10/05/16 at 01:30; Stop at 02:57; Status DC Nicardipine HCl/ Sodium Chloride (Cardene Inj/NS 250 ml Inj) 260 ml @ 0 mls/hr TITRATE ONCE IV Last administered on 10/05/16 02:00; Start 10/05/16 at 02:00; Stop 10/05/16 at 02:01; Status DC Iohexol (Omnipaque 350 Inj) 97 ml STK-MED ONCE IV Last administered on 02:11; Start 10/05/16 at 02:11; Stop 10/05/16 at 02:12; Status DC Etomidate (Amidate Inj) 20 mg STK-MED ONCE .ROUTE ; Start 10/05/16 at 02:13; Stop 10/05/16 at 02:14; Status DC Epinephrine HCl (EPINEPHrine (1:10,000) INJ) 1 mg STK-MED ONCE .ROUTE ; Start at 02:32; Stop 10/05/16 at 02:33; Status DC Atropine Sulfate (Atropine Inj) 1 mg STK-MED ONCE .ROUTE ; Start 10/05/16 at 02: 33; Stop 10/05/16 at 02:34; Status DC Lidocaine HCl 100 mg 100 mg STK-MED ONCE .ROUTE ; Start 10/05/16 at 02:33; Stop 10/05/16 at 02:34; Status DC Sodium Chloride (NS 1000 ml Inj) 1,000 ml @ 84 mls/hr [id number] IV Last administered on 10/14/16 23:55; Start 10/05/16 at 02:31; Stop 10/15/16 at 22:17 ; Status DC Acetaminophen (Tylenol) 650 mg Q6H PRN PO PAIN 1-10 AND/OR FEVER >101F Last administered on 11/24/16 20:17; Start 10/05/16 at 02:45 Morphine Sulfate (Morphine Inj) 2 mg Q2H PRN IV PAIN SCALE 6 TO 10 Last administered on 10/15/16 19:04; Start 10/05/16 at 02:45; Stop 10/22/16 at 06:04 ; Status DC Pantoprazole Sodium (Protonix Inj) 40 mg DAILY IV Last administered on 09:22; Start 10/05/16 at 09:00 Lorazepam (Ativan Inj) 2 mg Q4H PRN IV Agitation/Sedation Last administered on 10/11/16 12:27; Start 10/05/16 at 02:45; Stop 10/18/16 at 14:41; Status DC Artificial Tears (Tears Naturale Opth Soln) 1 drop TID EACH EYE Last administered on 11/29/16 12:57; Start 10/05/16 at 09:00 Ondansetron HCl (Zofran Inj) 4 mg Q6H PRN IV NAUSEA OR VOMITING Last administered on 11/27/16 23:26; Start 10/05/16 at 02:45 Metoclopramide HCl (Reglan Inj) 10 mg Q6H PRN IV NAUSEA OR VOMITING Last administered on 10/13/16 09:48; Start 10/05/16 at 02:45; Stop 10/19/16 at 07:38 ; Status DC Docusate Sodium (Colace) 100 mg Q12H G-TUBE Last administered on 10/30/16 05: 12; Start 10/05/16 at 04:00; Stop 10/31/16 at 16:41; Status DC Albuterol/ Ipratropium (Duoneb Neb) 1 ampule Q2HR NEB PRN INH WHEEZING Last administered on 10/31/16 13:41; Start 10/05/16 at 02:45 Miscellaneous Information 1 [id number] Last administered on 10/05/16 02:45; Start 10/05/16 at 02:45 Chlorhexidine Gluconate (Chlorhexidine 2% Cloth) Taper DAILY@04 TOP Last administered on 11/16/16 03:28; Start 10/05/16 at 04:00; Stop 10/01/17 at 03:59 Chlorhexidine Gluconate 3 pack 3 pack UNSCH PRN TOP HYGIENIC CARE; Start at 02:45 Propofol (Diprivan 1000 Mg/100ml Inj) 100 ml @ 0 mls/hr TITRATE IV Last administered on 10/13/16 16:58; Start 10/05/16 at 02:45; Stop 10/18/16 at 14:41 ; Status DC Nimodipine 60 mg 60 mg Q4HR PO ; Start 10/05/16 at 04:00; Stop 10/05/16 at 04:00; Status DC Potassium Chloride/Sodium Chloride 1,000 ml @ 100 mls/hr Q10H IV ; Start at 02:15; Stop 10/05/16 at 02:56; Status DC Levetriacetam 500 mg/Sodium Chloride 105 ml @ 420 mls/hr Q12HR IV Last administered on 11/26/16 20:08; Start 10/05/16 at 09:00; Stop 11/26/16 at 22:02 ; Status DC Nicardipine HCl/ Sodium Chloride (Cardene Inj/NS 250 ml Inj) 260 ml @ 0 mls/hr TITRATE IV Last administered on 10/18/16 11:23; Start 10/05/16 at 02:45; Stop 11/05/16 at 13:47; Status DC Labetalol HCl (Trandate Inj) 10 mg Q4H PRN IV PUSH SBP>140, DBP>90 Last administered on 11/03/16 05:45; Start 10/05/16 at 02:45; Stop 11/05/16 at 13:47; Status DC Nimodipine (Nimotop) 60 mg Q4HR PO Last administered on 10/17/16 07:16; Start 10/05/16 at 04:00; Stop 10/17/16 at 10:55; Status DC Pravastatin Sodium (Pravachol) 40 mg DAILY PO Last administered on 11/29/16 09 :00; Start 10/05/16 at 09:00 Iohexol (Omnipaque 350 Inj) 75 ml STK-MED ONCE IV Last administered on 04:15; Start 10/05/16 at 04:15; Stop 10/05/16 at 04:16; Status DC Verapamil HCl (Isoptin Inj) 10 mg STK-MED ONCE .ROUTE Last administered on 13:04; Start 10/05/16 at 13:04; Stop 10/05/16 at 13:05; Status DC Heparin Sodium (Porcine) (*HEPARIN INJ Periprocedural ONLY) 10,000 units STK- MED ONCE .ROUTE Last administered on 10/05/16 14:16; Start 10/05/16 at 15:05; Stop 10/05/16 at 15:06; Status DC Iodixanol (Visipaque 320 Inj) 120 ml STK-MED ONCE I-ARTERIAL Last administered on 10/05/16 16:18; Start 10/05/16 at 16:18; Stop 10/05/16 at 16:19; Status DC Fentanyl Citrate 100 mcg 100 mcg STK-MED ONCE .ROUTE ; Start 10/05/16 at 16:49; Stop 10/05/16 at 16:50; Status DC Fentanyl Citrate (fentaNYL DRIP) 250 ml @ 0 mls/hr TITRATE IV Last administered on 10/17/16 00:29; Start 10/05/16 at 22:15; Stop 10/17/16 at 11:30 ; Status DC Norepinephrine Bitartrate 4 mg 4 mg STK-MED ONCE .ROUTE ; Start 10/06/16 at 04:03 ; Stop 10/06/16 at 04:04; Status DC Sodium Chloride (NS 1000 ml Inj) 999 ml @ 0 mls/hr BOLUS ONCE IV Last administered on 10/06/16 06:38; Start 10/06/16 at 06:45; Stop 10/06/16 at 06:46; Status DC Sodium Chloride (NS Flush) See Protocol DAILY IV FLUSH Last administered on 09:23; Start 10/07/16 at 09:00 Sodium Chloride (NS Flush) See Protocol UNSCH PRN IV FLUSH SEE PROTOCOL TABLE; Start 10/06/16 at 12:00 Heparin Sodium (Porcine) (Heparin Central Flush) See Protocol DAILY IV FLUSH Last administered on 10/13/16 09:00; Start 10/07/16 at 09:00; Stop 10/18/16 at 14:41; Status DC Heparin Sodium (Porcine) (Heparin Central Flush) See Protocol UNSCH PRN IV FLUSH SEE PROTOCOL TABLE Last administered on 10/11/16 08:00; Start 10/06/16 at 12:00; Stop 10/18/16 at 14:41; Status DC Sodium Chloride (NS Flush) UNSCH PRN IV FLUSH SEE PROTOCOL TABLE Last administered on 11/21/16 19:37; Start 10/06/16 at 12:00 Norepinephrine Bitartrate 4 mg 4 mg STK-MED ONCE .ROUTE ; Start 10/06/16 at 17:30 ; Stop 10/06/16 at 17:31; Status DC Norepinephrine Bitartrate 4 mg/ Sodium Chloride 254 ml @ 0 mls/hr TITRATE IV Last administered on 10/28/16 20:14; Start 10/06/16 at 18:00; Stop 11/26/16 at 22:03; Status DC Potassium Chloride 100 ml @ 50 mls/hr Q2H PRN IV For Potassium 2.8 - 3.2 mEq/L ; Start 10/07/16 at 08:00; Stop 10/12/16 at 13:11; Status DC Potassium Chloride 100 ml @ 50 mls/hr Q2H PRN IV For Potassium 2.8 - 3.2 mEq/L ; Start 10/07/16 at 08:00; Stop 10/12/16 at 13:11; Status DC Potassium Chloride 100 ml @ 25 mls/hr UNSCH PRN IV For Potassium 3.3 - 3.5 mEq /L Last administered on 10/07/16 15:56; Start 10/07/16 at 08:00; Stop 10/12/16 at 13:11; Status DC Potassium Chloride 100 ml @ 50 mls/hr Q2H PRN IV For Potassium 3.3 - 3.5 mEq/ L Last administered on 10/11/16 07:41; Start 10/07/16 at 08:00; Stop 10/12/16 at 13:11; Status DC Magnesium Sulfate/ Sodium Chloride (Magnesium Sulfate Inj/NS Inj) 100 ml @ 50 mls/hr UNSCH PRN IV For Magnesium 0.9 - 1.1 mg/dL; Start 10/07/16 at 08:00; Stop 10/12/16 at 13:11; Status DC Magnesium Oxide 800 mg 800 mg UNSCH PRN PO For Magnesium 1.2 - 1.6 mg/dL; Start 10/07/16 at 08:00; Stop 10/12/16 at 13:11; Status DC Magnesium Sulfate/ Sodium Chloride (Magnesium Sulfate Inj/NS Inj) 100 ml @ 50 mls/hr UNSCH PRN IV For Magnesium 1.2 - 1.6 mg/dL; Start 10/07/16 at 08:00; Stop 10/12/16 at 13:11; Status DC Potassium Phosphate 2000 mg 2,000 mg Q4H PRN PO For Phosphorus < 2.5 mg/dL; Start 10/07/16 at 08:00; Stop 10/12/16 at 13:11; Status DC Sodium Phosphate/ Sodium Chloride (Sodium Phosphate Inj/NS 250 ml Inj) 250 ml @ 42 mls/hr UNSCH PRN IV For Phosphorus < 2.5 mg/dL; Start 10/07/16 at 08:00; Stop 10/12/16 at 13:11; Status DC Potassium Phosphate 2000 mg 2,000 mg UNSCH PRN PO/TUBE SEE LABEL COMMENTS Last administered on 10/07/16 15:56; Start 10/07/16 at 08:00; Stop 10/12/16 at 13:11; Status DC Potassium Phosphate/Sodium Chloride (Potassium Phosphate Inj/NS 250 ml Inj) 260 ml @ 42 mls/hr UNSCH PRN IV SEE LABEL COMMENTS Last administered on 10/08/16 11:23; Start 10/07/16 at 08:00; Stop 10/12/16 at 13:11; Status DC Clonidine (Catapres) 0.1 mg Q8H PRN NG SBP>170, DBP>90 Last administered on 00:28; Start 10/09/16 at 16:15; Stop 10/18/16 at 14:41; Status DC Polyethylene Glycol (Miralax) 17 gm DAILY PO Last administered on 10/28/16 09: 09; Start 10/10/16 at 14:00; Stop 10/30/16 at 15:12; Status DC Lactulose (Lactulose Liq) 30 ml DAILY PO Last administered on 10/28/16 09:09; Start 10/10/16 at 14:00; Stop 10/30/16 at 15:12; Status DC Metoprolol Tartrate 25 mg 25 mg Q6H PO Last administered on 10/18/16 09:36; Start 10/10/16 at 14:00; Stop 10/18/16 at 14:41; Status DC Labetalol HCl 500 mg/Sodium Chloride 250 ml @ 0 mls/hr TITRATE IV ; Start at 17:00; Stop 10/18/16 at 14:41; Status DC Sodium Chloride (NS 250 ml Inj) 250 ml @ As Directed STK-MED ONCE .ROUTE ; Start 10/11/16 at 02:29; Stop 10/11/16 at 02:30; Status DC Nicardipine HCl (Cardene Inj) 25 mg STK-MED ONCE .ROUTE ; Start 10/11/16 at 02: 29; Stop 10/11/16 at 02:30; Status DC Tamsulosin HCl (Flomax) 0.4 mg Q12HR PO Last administered on 10/17/16 07:16; Start 10/11/16 at 09:00; Stop 10/18/16 at 14:41; Status DC Epinephrine HCl (EPINEPHrine (1:10,000) INJ) 1 mg STK-MED ONCE .ROUTE ; Start at 09:51; Stop 10/11/16 at 09:52; Status DC Atropine Sulfate (Atropine Inj) 1 mg STK-MED ONCE .ROUTE ; Start 10/11/16 at 09: 51; Stop 10/11/16 at 09:52; Status DC Lidocaine HCl (Xylocaine 2% Inj) 100 mg STK-MED ONCE .ROUTE ; Start 10/11/16 at 09:51; Stop 10/11/16 at 09:52; Status DC Iohexol (Omnipaque 350 Inj) 100 ml STK-MED ONCE IV Last administered on 10:56; Start 10/11/16 at 10:56; Stop 10/11/16 at 10:57; Status DC Norepinephrine Bitartrate 4 mg 4 mg STK-MED ONCE .ROUTE ; Start 10/11/16 at 20: 25; Stop 10/11/16 at 20:26; Status DC Aztreonam 2000 mg/ Sodium Chloride 100 ml @ 200 mls/hr Q8H IV Last administered on 10/19/16 01:39; Start 10/12/16 at 02:00; Stop 10/19/16 at 07:38 ; Status DC Pharmacy Profile Note 0 ml @ 0 mls/hr UNSCH OTHER ; Start 10/12/16 at 02:15; Stop 10/13/16 at 17:17; Status DC Metronidazole 100 ml @ 100 mls/hr Q6H IV Last administered on 10/19/16 03:33 ; Start 10/12/16 at 03:00; Stop 10/19/16 at 07:39; Status DC Vancomycin HCl 2500 mg/Sodium Chloride 525 ml @ 250 mls/hr ONCE ONCE IV Last administered on 10/12/16 04:00; Start 10/12/16 at 04:00; Stop 10/12/16 at 06:05 ; Status DC Vancomycin HCl/ Sodium Chloride (Vancomycin Inj/ NS 500 ml Inj) 520 ml @ 250 mls/hr ONCE ONCE IV Last administered on 10/13/16 11:30; Start 10/13/16 at 11 :00; Stop 10/13/16 at 17:17; Status DC Epinephrine HCl (EPINEPHrine (1:10,000) INJ) 1 mg STK-MED ONCE .ROUTE ; Start at 03:26; Stop 10/14/16 at 03:27; Status DC Atropine Sulfate (Atropine Inj) 1 mg STK-MED ONCE .ROUTE ; Start 10/14/16 at 03: 26; Stop 10/14/16 at 03:27; Status DC Lidocaine HCl 100 mg 100 mg STK-MED ONCE .ROUTE ; Start 10/14/16 at 03:27; Stop 10/14/16 at 03:28; Status DC Potassium Chloride 100 ml @ 50 mls/hr Q2H PRN IV For Potassium 2.8 - 3.2 mEq/ L Last administered on 10/30/16 05:12; Start 10/14/16 at 16:00; Stop 10/30/16 at 15:11; Status DC Potassium Chloride (KCl 20 Meq Premix Inj) 100 ml @ 50 mls/hr Q2H PRN IV For Potassium 2.8 - 3.2 mEq/L Last administered on 10/30/16 13:40; Start 10/14/16 at 16:00; Stop 10/30/16 at 15:11; Status DC Potassium Bicarb/ Potassium Chloride 50 meq 50 meq UNSCH PRN PO For Potassium 3.3 - 3.5 mEq/L Last administered on 10/30/16 05:12; Start 10/14/16 at 16:00; Stop 10/30/16 at 15:11; Status DC Potassium Chloride 100 ml @ 25 mls/hr UNSCH PRN IV For Potassium 3.3 - 3.5 mEq /L Last administered on 10/18/16 06:50; Start 10/14/16 at 16:00; Stop 10/30/16 at 15:11; Status DC Potassium Chloride 100 ml @ 50 mls/hr Q2H PRN IV For Potassium 3.3 - 3.5 mEq/ L Last administered on 10/27/16 07:41; Start 10/14/16 at 16:00; Stop 10/30/16 at 15:11; Status DC Magnesium Sulfate/ Sodium Chloride (Magnesium Sulfate Inj/NS Inj) 100 ml @ 50 mls/hr UNSCH PRN IV For Magnesium 0.9 - 1.1 mg/dL; Start 10/14/16 at 16:00; Stop 10/30/16 at 15:11; Status DC Magnesium Oxide 800 mg 800 mg UNSCH PRN PO For Magnesium 1.2 - 1.6 mg/dL; Start 10/14/16 at 16:00; Stop 10/30/16 at 15:11; Status DC Magnesium Sulfate/ Sodium Chloride (Magnesium Sulfate Inj/NS Inj) 100 ml @ 50 mls/hr UNSCH PRN IV For Magnesium 1.2 - 1.6 mg/dL; Start 10/14/16 at 16:00; Stop 10/30/16 at 15:11; Status DC Potassium Phosphate 2000 mg 2,000 mg Q4H PRN PO For Phosphorus < 2.5 mg/dL Last administered on 10/17/16 02:00; Start 10/14/16 at 16:00; Stop 10/30/16 at 15:11; Status DC Sodium Phosphate/ Sodium Chloride (Sodium Phosphate Inj/NS 250 ml Inj) 250 ml @ 42 mls/hr UNSCH PRN IV For Phosphorus < 2.5 mg/dL Last administered on 20:31; Start 10/14/16 at 16:00; Stop 10/30/16 at 15:11; Status DC Potassium Phosphate 2000 mg 2,000 mg UNSCH PRN PO/TUBE SEE LABEL COMMENTS Last administered on 10/18/16 06:51; Start 10/14/16 at 16:00; Stop 10/30/16 at 15:11 ; Status DC Potassium Phosphate/Sodium Chloride (Potassium Phosphate Inj/NS 250 ml Inj) 260 ml @ 42 mls/hr UNSCH PRN IV SEE LABEL COMMENTS; Start 10/14/16 at 16:00; Stop 10/30/16 at 15:11; Status DC Verapamil HCl (Isoptin Inj) 15 mg STK-MED ONCE .ROUTE Last administered on 10/15 12:55; Start 10/15/16 at 12:55; Stop 10/15/16 at 12:56; Status DC Verapamil HCl (Isoptin Inj) 5 mg STK-MED ONCE .ROUTE Last administered on 13:33; Start 10/15/16 at 13:33; Stop 10/15/16 at 13:34; Status DC Iodixanol 75 ml 75 ml STK-MED ONCE I-ARTERIAL Last administered on 10/15/16 13 :52; Start 10/15/16 at 13:52; Stop 10/15/16 at 13:53; Status DC Sodium Chloride (NS 250 ml Inj) 250 ml @ As Directed STK-MED ONCE .ROUTE ; Start 10/15/16 at 20:40; Stop 10/15/16 at 20:41; Status DC Nicardipine HCl 25 mg 25 mg STK-MED ONCE .ROUTE ; Start 10/15/16 at 20:40; Stop 10/15/16 at 20:41; Status DC Sodium Chloride (NS 250 ml Inj) 250 ml @ As Directed STK-MED ONCE .ROUTE ; Start 10/15/16 at 22:51; Stop 10/15/16 at 22:52; Status DC Nicardipine HCl 25 mg 25 mg STK-MED ONCE .ROUTE ; Start 10/15/16 at 22:51; Stop 10/15/16 at 22:52; Status DC Sodium Chloride (NS 250 ml Inj) 250 ml @ As Directed STK-MED ONCE .ROUTE ; Start 10/16/16 at 01:03; Stop 10/16/16 at 01:04; Status DC Nicardipine HCl 25 mg 25 mg STK-MED ONCE .ROUTE ; Start 10/16/16 at 01:03; Stop 10/16/16 at 01:05; Status DC Sodium Chloride (NS 250 ml Inj) 250 ml @ As Directed STK-MED ONCE .ROUTE ; Start 10/16/16 at 01:47; Stop 10/16/16 at 01:48; Status DC Nicardipine HCl (Cardene Inj) 25 mg STK-MED ONCE .ROUTE ; Start 10/16/16 at 01: 47; Stop 10/16/16 at 01:48; Status DC Nicardipine HCl (Cardene Inj) 25 mg STK-MED ONCE .ROUTE ; Start 10/16/16 at 03: 51; Stop 10/16/16 at 03:52; Status DC Epinephrine HCl (EPINEPHrine (1:10,000) INJ) 1 mg STK-MED ONCE .ROUTE ; Start at 03:57; Stop 10/16/16 at 03:58; Status DC Atropine Sulfate (Atropine Inj) 1 mg STK-MED ONCE .ROUTE ; Start 10/16/16 at 03: 57; Stop 10/16/16 at 03:58; Status DC Lidocaine HCl (Xylocaine 2% Inj) 100 mg STK-MED ONCE .ROUTE ; Start 10/16/16 at 03:57; Stop 10/16/16 at 03:58; Status DC Diphenhydramine HCl (Benadryl Inj) 25 mg Q6H PRN IV RASH Last administered on 03:12; Start 10/16/16 at 08:15; Stop 10/18/16 at 14:41; Status DC Nimodipine (Nimotop) 30 mg Q2H PO Last administered on 10/26/16 06:53; Start 10/17/16 at 11:00; Stop 10/26/16 at 08:46; Status DC Iohexol 70 ml 70 ml STK-MED ONCE IV Last administered on 10/19/16 14:36; Start 10/19/16 at 14:36; Stop 10/19/16 at 14:37; Status DC Phenylephrine HCl/ Sodium Chloride (Neosynephrine Inj/NS 500 ml Inj) 500 ml @ 0 mls/hr TITRATE IV Last administered on 10/20/16 16:29; Start 10/19/16 at 16:30 ; Stop 10/23/16 at 10:42; Status DC Alteplase, Recombinant (Cathflo Activase Inj) 2 mg UNSCH PRN IV FLUSH PICC LINE OCCLUSION Last administered on 11/01/16 21:47; Start 10/19/16 at 16:15; Stop 11/05/16 at 13:47; Status DC Verapamil HCl (Isoptin Inj) 5 mg STK-MED ONCE .ROUTE Last administered on 17:20; Start 10/19/16 at 16:05; Stop 10/19/16 at 16:06; Status DC Midazolam HCl (Versed Inj) 2 mg STK-MED ONCE .ROUTE Last administered on 17:18; Start 10/19/16 at 17:18; Stop 10/19/16 at 17:19; Status DC Verapamil HCl (Isoptin Inj) 5 mg STK-MED ONCE .ROUTE Last administered on 17:27; Start 10/19/16 at 17:27; Stop 10/19/16 at 17:28; Status DC Iodixanol (Visipaque 320 Inj) 100 ml STK-MED ONCE I-ARTERIAL Last administered on 10/19/16 18:08; Start 10/19/16 at 18:08; Stop 10/19/16 at 18:09; Status DC Diphenhydramine HCl 6.25 mg 6.25 mg Q4H PRN IV PUSH itching, rash Last administered on 11/04/16 20:45; Start 10/19/16 at 19:15; Stop 11/05/16 at 13:47; Status DC Vancomycin HCl 1250 mg/Sodium Chloride 262.5 ml @ 250 mls/hr ONCE ONCE IV ; Start 10/20/16 at 12:30; Stop 10/20/16 at 12:33; Status DC Cefepime HCl 2000 mg/Sodium Chloride 100 ml @ 200 mls/hr Q8H IV Last administered on 10/29/16 21:00; Start 10/20/16 at 13:00; Stop 10/29/16 at 23:59 ; Status DC Metronidazole 100 ml @ 100 mls/hr Q6H IV Last administered on 10/23/16 08:13 ; Start 10/20/16 at 14:00; Stop 10/23/16 at 10:43; Status DC Vancomycin HCl 1250 mg/Sodium Chloride 262.5 ml @ 250 mls/hr ONCE ONCE IV Last administered on 10/20/16 15:00; Start 10/20/16 at 15:00; Stop 10/20/16 at 16:02; Status DC Vasopressin/ Dextrose (Pitressin Inj/ D5W 100 ml Inj) 100 ml @ 6 mls/hr [id number] IV Last administered on 10/23/16 04:16; Start 10/20/16 at 15:23; Stop at 10:43; Status DC Dextrose (D50w (Vial) Inj) 25 ml UNSCH PRN IV PUSH HYPOGLYCEMIA-SEE COMMENTS; Start 10/20/16 at 17:15; Stop 10/30/16 at 15:07; Status DC Insulin Human Regular 1 1 Q6HR SQ Last administered on 10/23/16 05:39; Start 10/20/16 at 18:00; Stop 10/30/16 at 15:07; Status DC Sodium Chloride 500 ml @ 500 mls/hr BOLUS ONCE IV Last administered on 18:27; Start 10/20/16 at 17:15; Stop 10/20/16 at 18:14; Status DC Sodium Chloride 1,000 ml @ 999 mls/hr BOLUS ONCE IV Last administered on 10/21 10:01; Start 10/21/16 at 08:30; Stop 10/21/16 at 09:30; Status DC Sodium Chloride (NS 1000 ml Inj) 1,000 ml @ 60 mls/hr [id number] IV Last administered on 11/18/16 00:21; Start 10/21/16 at 08:30; Stop 11/18/16 at 08:54 ; Status DC Sodium Chloride 2 gm 2 gm Q8HR PO Last administered on 10/22/16 04:56; Start 10/21/16 at 08:30; Stop 10/22/16 at 10:01; Status DC Sodium Chloride (NS 500 ml Inj) 500 ml @ 500 mls/hr BOLUS ONCE IV Last administered on 10/21/16 20:06; Start 10/21/16 at 19:15; Stop 10/21/16 at 20:14 ; Status DC Fludrocortisone Acetate 0.1 mg 0.1 mg Q12HR PO Last administered on 10/22/16 09:13; Start 10/22/16 at 09:00; Stop 10/22/16 at 16:26; Status DC Sodium Chloride 500 ml @ 20 mls/hr ONCE ONCE IV Last administered on 06:15; Start 10/22/16 at 06:15; Stop 10/23/16 at 07:14; Status DC Sodium Chloride (NS 1000 ml Inj) 1,000 ml @ 999 mls/hr BOLUS ONCE IV Last administered on 10/22/16 06:15; Start 10/22/16 at 06:15; Stop 10/22/16 at 07:15 ; Status DC Sodium Chloride (Sodium Chloride) 3 gm Q8HR PO Last administered on 11/16/16 05:48; Start 10/22/16 at 14:00; Stop 11/16/16 at 09:16; Status DC Fludrocortisone Acetate 0.2 mg 0.2 mg Q12HR PO Last administered on 11/29/16 09:23; Start 10/22/16 at 21:00 Sodium Chloride 1,000 ml @ 999 mls/hr BOLUS ONCE IV Last administered on 10/22 16:49; Start 10/22/16 at 16:30; Stop 10/22/16 at 17:30; Status DC Sodium Chloride 500 ml @ 40 mls/hr CONTINUOUS IV Last administered on 18:50; Start 10/22/16 at 16:30; Stop 10/23/16 at 19:54; Status DC Sodium Chloride (NS 500 ml Inj) 500 ml @ 500 mls/hr BOLUS ONCE IV Last administered on 10/23/16 06:46; Start 10/23/16 at 06:45; Stop 10/23/16 at 07:44 ; Status DC Cisatracurium Besylate 20 mg 20 mg STAT ONCE IV Last administered on 11:35; Start 10/23/16 at 10:30; Stop 10/23/16 at 11:01; Status DC Propofol (Diprivan 1000 Mg/100ml Inj) 100 ml @ 0 mls/hr TITRATE IV ; Start 10/23 at 10:30; Stop 10/25/16 at 11:27; Status DC Fentanyl Citrate (fentaNYL INJ) 100 mcg STAT ONCE IV PUSH Last administered on 10/23/16 11:35; Start 10/23/16 at 10:30; Stop 10/23/16 at 11:02; Status DC Enoxaparin Sodium 40 mg 40 mg Q24H SQ Last administered on 11/28/16 21:36; Start 10/23/16 at 21:00 Sodium Chloride (Sodium Chloride 3% Inj) 500 ml @ 20 mls/hr CONTINUOUS IV Last administered on 10/24/16 10:32; Start 10/23/16 at 20:00; Stop 10/25/16 at 20:01; Status DC Propofol 130 mg 130 mg STK-MED ONCE IV ; Start 10/24/16 at 08:53; Stop 10/24/16 at 10:11; Status DC Potassium Chloride 100 ml @ 50 mls/hr Q2H PRN IV For Potassium 2.8 - 3.2 mEq/ L Last administered on 11/03/16 05:17; Start 10/24/16 at 15:15; Stop 11/04/16 at 12:19; Status DC Potassium Chloride (KCl 20 Meq Premix Inj) 100 ml @ 50 mls/hr Q2H PRN IV For Potassium 2.8 - 3.2 mEq/L Last administered on 10/31/16 16:39; Start 10/24/16 at 15:15; Stop 11/04/16 at 12:19; Status DC Potassium Bicarb/ Potassium Chloride 50 meq 50 meq UNSCH PRN PO For Potassium 3.3 - 3.5 mEq/L; Start 10/24/16 at 15:15; Stop 11/04/16 at 12:19; Status DC Potassium Chloride 100 ml @ 25 mls/hr UNSCH PRN IV For Potassium 3.3 - 3.5 mEq /L Last administered on 10/26/16t 21:47; Start 10/24/16 at 15:15; Stop 11/04/16 at 12:19; Status DC Potassium Chloride 100 ml @ 50 mls/hr Q2H PRN IV For Potassium 3.3 - 3.5 mEq/L ; Start 10/24/16 at 15:15; Stop 11/04/16 at 12:19; Status DC Magnesium Sulfate/ Sodium Chloride (Magnesium Sulfate Inj/NS Inj) 100 ml @ 50 mls/hr UNSCH PRN IV For Magnesium 0.9 - 1.1 mg/dL; Start 10/24/16 at 15:15; Stop 11/04/16 at 12:19; Status DC Magnesium Oxide 800 mg 800 mg UNSCH PRN PO For Magnesium 1.2 - 1.6 mg/dL; Start 10/24/16 at 15:15; Stop 11/04/16 at 12:19; Status DC Magnesium Sulfate/ Sodium Chloride (Magnesium Sulfate Inj/NS Inj) 100 ml @ 50 mls/hr UNSCH PRN IV For Magnesium 1.2 - 1.6 mg/dL; Start 10/24/16 at 15:15; Stop 11/04/16 at 12:19; Status DC Potassium Phosphate 2000 mg 2,000 mg Q4H PRN PO For Phosphorus < 2.5 mg/dL; Start 10/24/16 at 15:15; Stop 11/04/16 at 12:19; Status DC Sodium Phosphate/ Sodium Chloride (Sodium Phosphate Inj/NS 250 ml Inj) 250 ml @ 42 mls/hr UNSCH PRN IV For Phosphorus < 2.5 mg/dL; Start 10/24/16 at 15:15; Stop 11/04/16 at 12:19; Status DC Potassium Phosphate 2000 mg 2,000 mg UNSCH PRN PO/TUBE SEE LABEL COMMENTS; Start 10/24/16 at 15:15; Stop 11/04/16 at 12:19; Status DC Potassium Phosphate 30 mmol/ Sodium Chloride 260 ml @ 42 mls/hr UNSCH PRN IV SEE LABEL COMMENTS; Start 10/24/16 at 15:15 Sodium Chloride 500 ml @ 10 mls/hr Q24H IV Last administered on 10/29/16 20: 54; Start 10/25/16 at 21:00; Stop 10/30/16 at 12:48; Status DC Cefepime HCl/ Sodium Chloride (Maxipime Inj/NS Inj) 100 ml @ 200 mls/hr Q8HR IV Last administered on 11/06/16 05:05; Start 10/30/16 at 14:00; Stop 11/06/16 at 12:00; Status DC Fentanyl Citrate (fentaNYL INJ) 50 mcg Q3H PRN IV PAIN 1-10 Last administered on 11/05/16 05:07; Start 10/30/16 at 15:15; Stop 11/05/16 at 13:47; Status DC Docusate Sodium 100 mg 100 mg Q12H G-TUBE Last administered on 11/03/16 17:00; Start 10/31/16 at 17:00; Stop 11/06/16 at 16:48; Status DC Potassium Chloride 100 ml @ 50 mls/hr Q2H PRN IV For Potassium 2.8 - 3.2 mEq/ L Last administered on 11/20/16 07:31; Start 11/03/16 at 05:15 Potassium Chloride (KCl 20 Meq Premix Inj) 100 ml @ 50 mls/hr Q2H PRN IV For Potassium 2.8 - 3.2 mEq/L Last administered on 11/29/16 06:01; Start 11/03/16 at 05:15 Potassium Bicarb/ Potassium Chloride 50 meq 50 meq UNSCH PRN PO For Potassium 3.3 - 3.5 mEq/L Last administered on 11/22/16 07:07; Start 11/03/16 at 05:15 Potassium Chloride 100 ml @ 25 mls/hr UNSCH PRN IV For Potassium 3.3 - 3.5 mEq /L Last administered on 11/19/16 01:44; Start 11/03/16 at 05:15 Potassium Chloride 100 ml @ 50 mls/hr Q2H PRN IV For Potassium 3.3 - 3.5 mEq/ L Last administered on 11/25/16 08:51; Start 11/03/16 at 05:15 Magnesium Sulfate/ Sodium Chloride (Magnesium Sulfate Inj/NS Inj) 100 ml @ 50 mls/hr UNSCH PRN IV For Magnesium 0.9 - 1.1 mg/dL; Start 11/03/16 at 05:15 Magnesium Oxide 800 mg 800 mg UNSCH PRN PO For Magnesium 1.2 - 1.6 mg/dL; Start 11/03/16 at 05:15 Magnesium Sulfate/ Sodium Chloride (Magnesium Sulfate Inj/NS Inj) 100 ml @ 50 mls/hr UNSCH PRN IV For Magnesium 1.2 - 1.6 mg/dL; Start 11/03/16 at 05:15 Potassium Phosphate 2000 mg 2,000 mg Q4H PRN PO For Phosphorus < 2.5 mg/dL; Start 11/03/16 at 05:15 Sodium Phosphate/ Sodium Chloride (Sodium Phosphate Inj/NS 250 ml Inj) 250 ml @ 42 mls/hr UNSCH PRN IV For Phosphorus < 2.5 mg/dL; Start 11/03/16 at 05:15 Potassium Phosphate (K-Phos) 2,000 mg UNSCH PRN PO/TUBE SEE LABEL COMMENTS; Start 11/03/16 at 05:15 Furosemide 40 mg 40 mg ONCE ONCE IV PUSH Last administered on 11/03/16 18:16; Start 11/03/16 at 18:15; Stop 11/03/16 at 18:16; Status DC Potassium Chloride/Sodium Chloride (KCl Inj/NS Inj) 115 ml @ 38.333 mls/ hr Q3H IV-CENTRAL Last administered on 11/03/16 22:53; Start 11/03/16 at 20:00; Stop 11/04/16 at 01:59; Status DC Labetalol HCl (Trandate) 100 mg Q8H PO Last administered on 11/29/16 12:57; Start 11/03/16 at 20:00 Hydralazine HCl (Apresoline) 50 mg Q12HR PO Last administered on 11/29/16 09: 22; Start 11/03/16 at 19:00 Amlodipine Besylate (Norvasc) 5 mg DAILY PO Last administered on 11/29/16 09: 22; Start 11/04/16 at 09:00 Nystatin (Mycostatin Powder) 1 applic TID TOPICAL Last administered on 12:58; Start 11/06/16 at 09:00 Lactobacillus Acidophilus (Lactinex) 1 tab Q12HR PO Last administered on 09:21; Start 11/06/16 at 21:00 Quetiapine Fumarate (SEROquel) 25 mg BID@09,12 PO Last administered on 12:57; Start 11/07/16 at 09:00 Multi-Ingredient Mouthwash/Gargle (Magic Mouthwash Adult Liq) 5 ml QID SWISH- SWAL Last administered on 11/16/16 13:00; Start 11/06/16 at 18:00; Stop at 17:59; Status DC Docusate Sodium (Colace Liq) 100 mg Q12H PRN G-TUBE constipation; Start at 17:00 Potassium Bicarbonate (Effer-K Eff) 25 meq DAILY PO Last administered on 09:00; Start 11/06/16 at 17:00; Stop 11/09/16 at 16:59; Status DC Diphenhydramine HCl (Benadryl Inj) 25 mg ONCE ONCE IV PUSH Last administered on 11/08/16 01:55; Start 11/08/16 at 01:45; Stop 11/08/16 at 01:46; Status DC Loperamide HCl (Imodium) 2 mg UNSCH PRN PO DIARRHEA Last administered on 12:57; Start 11/09/16 at 09:45 Diphenoxylate HCl/ Atropine (Lomotil Tab) 1 tab Q6H PRN PO severe diarrhea ; Start 11/09/16 at 09:45 Metronidazole (Flagyl) 500 mg Q8H PO Last administered on 11/29/16 09:23; Start 11/09/16 at 16:00 Thrombin (Thrombin Top Soln) 10,000 units STK-MED ONCE .ROUTE ; Start 11/10/16 at 08:31; Stop 11/10/16 at 08:32; Status DC Gelatin (Gelfoam 100 Top) 1 foam STK-MED ONCE .ROUTE ; Start 11/10/16 at 08:31; Stop 11/10/16 at 08:32; Status DC Potassium Bicarb/ Potassium Chloride 50 meq 50 meq NOW ONCE NG Last administered on 11/15/16 20:42; Start 11/15/16 at 20:45; Stop 11/15/16 at 20:46 ; Status DC Potassium Chloride (KCl 40 Meq Premix Inj) 100 ml @ 25 mls/hr Q4H IV Last administered on 11/16/16 01:13; Start 11/15/16 at 21:00; Stop 11/16/16 at 04:59 ; Status DC Sodium Chloride (Sodium Chloride) 2 gm Q8HR PO Last administered on 11/21/16 13:21; Start 11/16/16 at 14:00; Stop 11/21/16 at 17:30; Status DC Diphenhydramine HCl (Benadryl Inj) 50 mg Q6H PRN IV ITCHING Last administered on 11/29/16 09:21; Start 11/16/16 at 23:00 Diphenhydramine HCl (Benadryl Inj) 50 mg STK-MED ONCE .ROUTE ; Start 11/16/16 at 22:55; Stop 11/16/16 at 22:56; Status DC Quetiapine Fumarate (SEROquel) 25 mg HS PO Last administered on 11/28/16 21:37 ; Start 11/20/16 at 21:00 Sodium Chloride (Sodium Chloride) 2 gm BID PO Last administered on 11/23/16 07 :28; Start 11/22/16 at 09:00; Stop 11/23/16 at 11:40; Status DC Potassium Chloride (KCl) 20 meq BID PO Last administered on 11/24/16 20:18; Start 11/23/16 at 09:00; Stop 11/25/16 at 14:47; Status DC Sodium Chloride (Sodium Chloride) 2 gm DAILY PO Last administered on 11/28/16 08:15; Start 11/24/16 at 09:00 Thrombin (Thrombin Top Soln) 10,000 units STK-MED ONCE .ROUTE Last administered on 11/24/16 15:50; Start 11/24/16 at 07:55; Stop 11/24/16 at 07:56 ; Status DC Gelatin (Gelfoam 100 Top) 1 foam STK-MED ONCE .ROUTE Last administered on 15:50; Start 11/24/16 at 07:56; Stop 11/24/16 at 07:57; Status DC Lidocaine/ Epinephrine (Xylocaine-Epi 1%-1:100,000 Inj) 50 ml STK-MED ONCE .ROUTE Last administered on 11/24/16 15:50; Start 11/24/16 at 07:56; Stop at 07:57; Status DC Gentamicin Sulfate (Gentamicin Inj) 240 mg STK-MED ONCE .ROUTE Last administered on 11/24/16 15:50; Start 11/24/16 at 07:56; Stop 11/24/16 at 07:57 ; Status DC Vancomycin HCl 1000 mg 1,000 mg STK-MED ONCE .ROUTE Last administered on 15:40; Start 11/24/16 at 14:41; Stop 11/24/16 at 14:42; Status DC Sodium Chloride (NS 250 ml Inj) 250 ml @ As Directed STK-MED ONCE .ROUTE ; Start 11/24/16 at 14:41; Stop 11/24/16 at 14:42; Status DC Fentanyl Citrate 250 mcg 250 mcg STK-MED ONCE .ROUTE ; Start 11/24/16 at 17:28; Stop 11/24/16 at 17:29; Status DC Potassium Chloride/Sodium Chloride (1/2 NS + KCl 20 Meq Inj) 1,000 ml @ 84 mls/ hr [id number] IV Last administered on 11/24/16 20:52; Start 11/24/16 at 17:45; Stop 11/24/16 at 23:44; Status DC Miscellaneous Information ALL NURSING DEPARTME... UNSCH PRN .XX SEE LABEL COMMENTS; Start 11/24/16 at 18:15; Stop 11/25/16 at 18:14; Status DC Potassium Bicarb/ Potassium Chloride (K-Lyte Cl Eff) 25 meq Q12HR NG Last administered on 11/29/16 09:21; Start 11/25/16 at 21:00 Propofol (Diprivan 200 Mg/20 ml Inj) 200 mg STK-MED ONCE IV ; Start 11/24/16 at 14:31; Stop 11/29/16 at 14:34; Status DC Ephedrine Sulfate (ePHEDrine/NS 25 MG/5 ML SYR) 25 mg STK-MED ONCE IV ; Start at 14:31; Stop 11/29/16 at 14:34; Status DC Neostigmine Methylsulfate (Prostigmin Inj) 3 mg STK-MED ONCE IV ; Start at 14:31; Stop 11/29/16 at 14:34; Status DC Phenylephrine HCl (Neosynephrine/ NS 1000 Mcg/10ml Syr) 2,000 mcg STK-MED ONCE IV ; Start 11/24/16 at 14:31; Stop 11/29/16 at 14:34; Status DC Ondansetron HCl (Zofran Inj) 4 mg STK-MED ONCE IV PUSH ; Start 11/24/16 at 14:31 ; Stop 11/29/16 at 14:34; Status DC Vasopressin (Pitressin Inj) 20 units STK-MED ONCE IV ; Start 11/24/16 at 14:31; Stop 11/29/16 at 14:34; Status DC A/P Problem List: (1) 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 ICD Code: I60.8 Status: Acute (2) Hypertension ICD Code: I10 Status: Chronic (3) Major neurocognitive disorder due to vascular disease, without behavioral disturbance, severe ICD Code: F01.50 Status: Acute (4) Septic shock ICD Code: A41.9 Status: Resolved (5) Hydrocephalus ICD Code: G91.9 Status: Acute (6) Intracranial hemorrhage ICD Code: I62.9 Status: Acute (7) Major neurocognitive disorder as late effect of traumatic brain injury with behavioral disturbance ICD Code: S06.9X9S Status: Acute (8) Encephalopathy ICD Code: G93.40 Status: Acute (9) Sepsis ICD Code: A41.9 Status: Resolved (10) Pneumonia ICD Code: J18.9 Status: Acute (11) Protein-calorie malnutrition, mild ICD Code: E44.1 Status: Acute (12) Acute respiratory failure with hypoxia and hypercarbia ICD Code: J96.01 Status: Acute Assessment and Plan Aneurysmal subarachnoid hemorrhage, occurred on 10/05/16: -Appreciate neurosurgery recommendations. Okay for Lovenox per neurosurgery. Continue Keppra for seizure prophylaxis. -Status post CODING CLERKS SUPERVISOR shunt on 11/24/2016 + Streptococcus viridans in the CSF broth, media was negative. -Clinically patient looks well. -d/w Dr. Mace over the phone and he stated that CSF fluid was obtain as routine when he does have CODING CLERKS SUPERVISOR shunt. -Dr. aMce stated most likely a contaminant but wants me to reconsult infectious disease. Consult placed. Projectile vomiting on 11/26/2016 with mild epigastric pain -Patient has been asymptomatic since then. KUB negative for any small bowel obstruction or ileus. -Patient is on a PPI. -Continue to monitor clinically. Encephalopathy: -Secondary to above. Mental status is improving slowly. Acute hypoxic, hypercarbic respiratory failure: -Tracheostomy 10/23/16. Continue supplemental oxygen. DuoNeb as needed, scheduled. Trach management per pulmonology. Septic shock: Resolved. Possible cerebral salt wasting: - Continue Florinef, sodium chloride tablets. Mild acute protein calorie malnutrition -Continue tube feedings. Monitor labs. Pneumonia: - Completed antibiotics. C. difficile colitis: -Continue Flagyl. Repeat C. difficile studies are negative. -Patient needs 1 more repeat in order to be off of isolation. Hyperglycemia of critical illness: - Improved. Hydrocephalus: -Repeat head CT unchanged. CODING CLERKS SUPERVISOR shunt placement today. Hypokalemia -: Improved DVT prophylaxis: SCDs, YOUSIF hose, Lovenox. GI prophylaxis: Protonix. . Discharge Planning Patient stable to be transferred out of [facility] Since patient is following commands now he may qualify for [facility]. Will reconsult case management.. Problem Qualifiers (1) Hypertension: Qualified Code: I10 - Essential hypertension Sandra Ramos MD November 29, 2016 12:47
[2016-11-29] MEDS: LOPERAMIDE HCL 2 MG CAP PO PRN (12:57)
--- NOTE | 2016-11-29 19:14 | HHI.PR ---
Subjective Remarks 51 YOWM with TBI,RF,Trach On trach collar Mod amount of trach secretions More awake, strong cough No Fever tries to talk Strong cough, coughed out trach, reinserted Objective Vital Signs Vital Signs Date Time Temp Pulse Resp B/P Pulse Ox O2 Delivery O2 Flow Rate FiO2 11/29/16 16:00 97.5 104 24 122/70 100 11/29/16 12:00 98.9 114 30 122/69 98 11/29/16 08:09 98 Trach Collar 5.00 28 11/29/16 08:00 98.2 97 26 152/105 95 11/29/16 07:00 98 Trach Collar 6.00 28 11/29/16 04:00 98.2 114 25 160/92 95 11/29/16 04:00 112 11/29/16 00:00 98.7 114 20 146/92 95 11/29/16 00:00 100 11/28/16 20:00 100 11/28/16 20:00 98.3 95 15 115/69 95 11/28/16 19:59 93 Trach Collar 28 I/O 11/28/16 11/28/16 11/28/16 11/29/16 11/29/16 11/29/16 07:00 15:00 23:00 07:00 15:00 23:00 Intake Total 476 ml 780 ml 780 ml 600 ml 563 ml Output Total 600 ml 350 ml 300 ml 400 ml 2 ml Balance -124 ml 430 ml 480 ml 200 ml 561 ml IV Total 0 ml Tube Feeding 376 ml 450 ml 630 ml 500 ml 563 ml Tube Irrigant 100 ml 330 ml 150 ml 100 ml Output Urine Total 600 ml 350 ml 300 ml 400 ml Stool Total 2 ml # Voids 3 # Bowel Movements 2 0 1 1 Result Diagram: 11/29/16 0416 11/29/16 041 Objective Remarks GENERAL: WBWN male, on Trach collar SKIN: Warm and dry. HEAD: Normocephalic. EYES: No scleral icterus. No injection or drainage. NECK: Supple, trachea midline. No JVD or lymphadenopathy. Trach collar CARDIOVASCULAR: Regular rate and rhythm without murmurs, gallops, or rubs. RESPIRATORY: Breath sounds equal bilaterally. No accessory muscle use. GASTROINTESTINAL: Abdomen soft, non-tender, nondistended. PEG tube in place MUSCULOSKELETAL: No cyanosis, or edema. BACK: Nontender without obvious deformity. No CVA tenderness. A/P Assessment and Plan RF, s/p Trach Intracranial bleed Hydrocephalous HTN C.diff positive PLAN: Cont Flagyl Trach collar Secretions decreased DC Plans underway. PMV trial Renard Virgen MD November 29, 2016 19:14
[2016-11-29] MEDS: ENOXAPARIN SODIUM 40 MG/0.4 ML SYRINGE SQ SCH (20:57)
[2016-11-30] VITALS (8 sets, daily range): BP systolic 113–147; BP diastolic 56–98; PULSE 6–114; RESP 23–30; TEMP 97.9–99.1; O2SAT 95–97
[2016-11-30] MEDS: LABETALOL HCL 100 MG TAB PO SCH ×3 (04:35→21:04)
[2016-11-30] MEDS: CHLORHEXIDINE GLUCONATE 2 % 1 PACK (2 CLOTHS) TOP SCH (04:35)
[2016-11-30] MEDS: PRAVASTATIN SOD 40 MG TAB PO SCH (09:00)
[2016-11-30] MEDS: NYSTATIN 100,000 U/GM PWD 15 GM BTL TOPICAL SCH ×3 (09:00→17:13)
[2016-11-30] MEDS: ARTIFICIAL TEARS OPTH SOLN 15 ML BTL EACH EYE SCH ×3 (09:00→17:13)
[2016-11-30] MEDS: QUEtiapine FUMARATE 25 MG TAB PO SCH ×3 (09:27→21:04)
[2016-11-30] MEDS: SODIUM CHLORIDE 1 GRAM TAB PO SCH (09:27)
[2016-11-30] MEDS: amLODIPine BESYLATE 5 MG TAB PO SCH (09:27)
[2016-11-30] MEDS: LACTOBACILLUS ACIDOPHILUS TAB PO SCH ×2 (09:28→21:04)
[2016-11-30] MEDS: metroNIDAZOLE 500 MG TAB PO SCH (09:28)
[2016-11-30] MEDS: PANTOPRAZOLE SODIUM 40 MG VIAL IV SCH (09:28)
[2016-11-30] MEDS: FLUDROCORTISONE ACETATE 0.1 MG TAB PO SCH ×2 (09:28→21:05)
[2016-11-30] MEDS: POTASSIUM CHLORIDE 25 MEQ EFFERVESCENT TAB NG SCH ×2 (09:28→21:05)
[2016-11-30] MEDS: SODIUM CHLORIDE 0.9% FLUSH 10 ML FLUSH IV FLUSH SCH (09:29)
[2016-11-30] MEDS: hydrALAZINE HCL 50 MG TAB PO SCH ×2 (09:33→21:05)
--- NOTE | 2016-11-30 10:18 | HHI.NSPN ---
(Meir Sánchez) History Chief Complaint: Headache & trach pain (Meir Sánchez) Interval History 11/19: Patient wake this morning and fidgeting in bed. Nursing reports that during the night the patient was very agitated and pulling at his lines and remains restrained due to this. He receives Seroquel at 0900 and 1200 daily. He does follow commands. 11/20: Patient asleep but opens eyes to verbal stimuli. He does follow commands although he is fidgeting in bed and attempting to get out by himself. 11/21: Patient awake & alert in cardiac chair. He does verbalise and denies any complaint. He is following commands. Nursing reported that he stood 3 times this morning with Therapy. He went for a repeat CT brain this morning which demonstrated stable ventriculomegaly. 11/22: The patient is asleep in bed. He does not open his eyes but does attempt to verbalise when seen. He is following commands. 11/23: The patient is awake & alert. He follows commands and attempts to verbalise. 11/24: The patient is awake. He is restless in the bed at times. He does follow commands and is able to vocalise some. 11/25: The patient is awake & alert, fidgeting in bed as usual. He does follow commands and shakes his head no when asked if he has a headache. He went for a MEDICAID BILLER shunt yesterday afternoon. 11/30: The patient is awake & alert. He does follow commands. He complains of a headache and pain to the trach. (Meir Sánchez) System Review Comments HEENT: The patient complains of pain to the trach site. Respiratory: The patient denies any shortness of breath. Cardiovascular: The patient denies any chest pain, palpitations or irregular heartbeat. Gastrointestinal: The patient denies any abdominal pain or nausea. Extremities: The patient denies any arm or leg pain or weakness. Neurological: The patient complains of a headache. He denies any dizziness, numbness or tingling. (Meir Sánchez) Exam Results Vital Signs Date Time Temp Pulse Resp B/P Pulse Ox O2 Delivery O2 Flow Rate FiO2 11/30/16 08:29 96 Trach Collar 28 11/30/16 08:00 99.0 100 30 143/81 11/30/16 07:00 6.00 Intake and Output 11/29/16 11/29/16 11/30/16 08:00 16:00 00:00 Intake Total 600 ml 563 ml 502 ml Output Total 400 ml 2 ml 0 ml Balance 200 ml 561 ml 502 ml (Meir Sánchez) Physical Examination HEENT: Right parietal surgical incisions well-approximated with steri-strips, no evident drainage, erythema or streaking evident. Neck: Active ROM, no nuchal rigidity, no JVD, trached. Respiratory: CTAB w/o W/R/R, equal excursion, non-laboured, trached & on trach collar. Cardiovascular: S1S2 w/regular rate but fast w/o M/G/R, radial & pedal pulses 2 + bilaterally, cap refill < 2 sec. Monitor is sinus tachycardia (100s to low 110s) w/o any ectopy noted Gastrointestinal: Abdomen soft, nontender, positive bowel sounds, PEG tube w/ enteral feeds. RUQ surgical incision well-approximated with steri-strips, no evident drainage, erythema or streaking evident. Genitournary: Condom cath to BSD. Neurological: Awake & alert Does mouth a few words in response to questions with some verbalisation Follows simple commands Moving all extremities Good muscle strength (Meir Sánchez) Medical Decision Making Impression and Plan Impression: 1. 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 Hydrocephalus Postoperative CT scan reveals decreasing size of ventricles. Neurologic exam is stable following MEDICAID BILLER shunt placement POD #6 () s/p: MEDICAID BILLER shunt placement Plan: Cognitive/speech therapy eval & tx Activity OOB to cardiac chair Continue PT & OT Continue abx per Surgical Quality Assurance Supervisor Okay for Lovenox from NSGY standpoint Ulcer prophylaxis Keep SBP between 120-160 mm Hg He is stable for transfer from the intensive surgical care unit from a neurosurgical standpoint. We will follow him intermittently in the hospital (Meir Sánhcez) Attending Statement The exam, history, and the medical decision-making described in the above note were completed with the assistance of the mid-level provider. I reviewed and agree with the findings presented. I attest that I had a [id number] encounter with the patient on the same day, and personally performed and documented my assessment and findings in the medical record. (Mj Muhammad MD) Meir Sánchez November 30, 2016 10:17 Mj Muhammad MD Dec 03, 2016 14:48
--- NOTE | 2016-11-30 10:18 | HHI.NSPN ---
(Meir Sánchez) History Chief Complaint: Headache & trach pain (Meir Sánchez) Interval History 11/19: Patient wake this morning and fidgeting in bed. Nursing reports that during the night the patient was very agitated and pulling at his lines and remains restrained due to this. He receives Seroquel at 0900 and 1200 daily. He does follow commands. 11/20: Patient asleep but opens eyes to verbal stimuli. He does follow commands although he is fidgeting in bed and attempting to get out by himself. 11/21: Patient awake & alert in cardiac chair. He does verbalise and denies any complaint. He is following commands. Nursing reported that he stood 3 times this morning with Therapy. He went for a repeat CT brain this morning which demonstrated stable ventriculomegaly. 11/22: The patient is asleep in bed. He does not open his eyes but does attempt to verbalise when seen. He is following commands. 11/23: The patient is awake & alert. He follows commands and attempts to verbalise. 11/24: The patient is awake. He is restless in the bed at times. He does follow commands and is able to vocalise some. 11/25: The patient is awake & alert, fidgeting in bed as usual. He does follow commands and shakes his head no when asked if he has a headache. He went for a SUGAR CANE PLANTER MACHINE OPERATOR shunt yesterday afternoon. 11/30: The patient is awake & alert. He does follow commands. He complains of a headache and pain to the trach. (Meir Sánchez) System Review Comments HEENT: The patient complains of pain to the trach site. Respiratory: The patient denies any shortness of breath. Cardiovascular: The patient denies any chest pain, palpitations or irregular heartbeat. Gastrointestinal: The patient denies any abdominal pain or nausea. Extremities: The patient denies any arm or leg pain or weakness. Neurological: The patient complains of a headache. He denies any dizziness, numbness or tingling. (Meir Sánchez) Exam Results Vital Signs Date Time Temp Pulse Resp B/P Pulse Ox O2 Delivery O2 Flow Rate FiO2 11/30/16 08:29 96 Trach Collar 28 11/30/16 08:00 99.0 100 30 143/81 11/30/16 07:00 6.00 Intake and Output 11/29/16 11/29/16 11/30/16 08:00 16:00 00:00 Intake Total 600 ml 563 ml 502 ml Output Total 400 ml 2 ml 0 ml Balance 200 ml 561 ml 502 ml (Meir Sánchez) Physical Examination HEENT: Right parietal surgical incisions well-approximated with steri-strips, no evident drainage, erythema or streaking evident. Neck: Active ROM, no nuchal rigidity, no JVD, trached. Respiratory: CTAB w/o W/R/R, equal excursion, non-laboured, trached & on trach collar. Cardiovascular: S1S2 w/regular rate but fast w/o M/G/R, radial & pedal pulses 2 + bilaterally, cap refill < 2 sec. Monitor is sinus tachycardia (100s to low 110s) w/o any ectopy noted Gastrointestinal: Abdomen soft, nontender, positive bowel sounds, PEG tube w/ enteral feeds. RUQ surgical incision well-approximated with steri-strips, no evident drainage, erythema or streaking evident. Genitournary: Condom cath to BSD. Neurological: Awake & alert Does mouth a few words in response to questions with some verbalisation Follows simple commands Moving all extremities Good muscle strength (Meir Sánchez) Medical Decision Making Impression and Plan Impression: 1. 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 Hydrocephalus Postoperative CT scan reveals decreasing size of ventricles. Neurologic exam is stable following SUGAR CANE PLANTER MACHINE OPERATOR shunt placement POD #6 () s/p: SUGAR CANE PLANTER MACHINE OPERATOR shunt placement Plan: Cognitive/speech therapy eval & tx Activity OOB to cardiac chair Continue PT & OT Continue abx per Surgical Fruit Or Nut Farmer Okay for Lovenox from NSGY standpoint Ulcer prophylaxis Keep SBP between 120-160 mm Hg He is stable for transfer from the intensive surgical care unit from a neurosurgical standpoint. We will follow him intermittently in the hospital (Meir Sánchez) Attending Statement The exam, history, and the medical decision-making described in the above note were completed with the assistance of the mid-level provider. I reviewed and agree with the findings presented. I attest that I had a [id number] encounter with the patient on the same day, and personally performed and documented my assessment and findings in the medical record. (Mj Muhammad MD) Meir Sánchez November 30, 2016 10:17 Mj Muhammad MD Dec 03, 2016 14:48
--- NOTE | 2016-11-30 10:18 | HHI.NSPN ---
(Meir Sánchez) History Chief Complaint: Headache & trach pain (Meir Sánchez) Interval History 11/19: Patient wake this morning and fidgeting in bed. Nursing reports that during the night the patient was very agitated and pulling at his lines and remains restrained due to this. He receives Seroquel at 0900 and 1200 daily. He does follow commands. 11/20: Patient asleep but opens eyes to verbal stimuli. He does follow commands although he is fidgeting in bed and attempting to get out by himself. 11/21: Patient awake & alert in cardiac chair. He does verbalise and denies any complaint. He is following commands. Nursing reported that he stood 3 times this morning with Therapy. He went for a repeat CT brain this morning which demonstrated stable ventriculomegaly. 11/22: The patient is asleep in bed. He does not open his eyes but does attempt to verbalise when seen. He is following commands. 11/23: The patient is awake & alert. He follows commands and attempts to verbalise. 11/24: The patient is awake. He is restless in the bed at times. He does follow commands and is able to vocalise some. 11/25: The patient is awake & alert, fidgeting in bed as usual. He does follow commands and shakes his head no when asked if he has a headache. He went for a PRIMER INSPECTOR shunt yesterday afternoon. 11/30: The patient is awake & alert. He does follow commands. He complains of a headache and pain to the trach. (Meir Sánchez) System Review Comments HEENT: The patient complains of pain to the trach site. Respiratory: The patient denies any shortness of breath. Cardiovascular: The patient denies any chest pain, palpitations or irregular heartbeat. Gastrointestinal: The patient denies any abdominal pain or nausea. Extremities: The patient denies any arm or leg pain or weakness. Neurological: The patient complains of a headache. He denies any dizziness, numbness or tingling. (Meir Sánchez) Exam Results Vital Signs Date Time Temp Pulse Resp B/P Pulse Ox O2 Delivery O2 Flow Rate FiO2 11/30/16 08:29 96 Trach Collar 28 11/30/16 08:00 99.0 100 30 143/81 11/30/16 07:00 6.00 Intake and Output 11/29/16 11/29/16 11/30/16 08:00 16:00 00:00 Intake Total 600 ml 563 ml 502 ml Output Total 400 ml 2 ml 0 ml Balance 200 ml 561 ml 502 ml (Meir Sánchez) Physical Examination HEENT: Right parietal surgical incisions well-approximated with steri-strips, no evident drainage, erythema or streaking evident. Neck: Active ROM, no nuchal rigidity, no JVD, trached. Respiratory: CTAB w/o W/R/R, equal excursion, non-laboured, trached & on trach collar. Cardiovascular: S1S2 w/regular rate but fast w/o M/G/R, radial & pedal pulses 2 + bilaterally, cap refill < 2 sec. Monitor is sinus tachycardia (100s to low 110s) w/o any ectopy noted Gastrointestinal: Abdomen soft, nontender, positive bowel sounds, PEG tube w/ enteral feeds. RUQ surgical incision well-approximated with steri-strips, no evident drainage, erythema or streaking evident. Genitournary: Condom cath to BSD. Neurological: Awake & alert Does mouth a few words in response to questions with some verbalisation Follows simple commands Moving all extremities Good muscle strength (Meir Sánchez) Medical Decision Making Impression and Plan Impression: 1. 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 Hydrocephalus Postoperative CT scan reveals decreasing size of ventricles. Neurologic exam is stable following PRIMER INSPECTOR shunt placement POD #6 () s/p: PRIMER INSPECTOR shunt placement Plan: Cognitive/speech therapy eval & tx Activity OOB to cardiac chair Continue PT & OT Continue abx per Surgical Orthopedics Teacher Okay for Lovenox from NSGY standpoint Ulcer prophylaxis Keep SBP between 120-160 mm Hg He is stable for transfer from the intensive surgical care unit from a neurosurgical standpoint. We will follow him intermittently in the hospital (Meir Sánchez) Attending Statement The exam, history, and the medical decision-making described in the above note were completed with the assistance of the mid-level provider. I reviewed and agree with the findings presented. I attest that I had a [id number] encounter with the patient on the same day, and personally performed and documented my assessment and findings in the medical record. (Mj Muhammad MD) Meir Sánchez November 30, 2016 10:17 Mj Muhammad MD Dec 03, 2016 14:48
--- NOTE | 2016-11-30 12:49 | HHI.PR ---
Subjective Remarks Follow-up for intracranial bleed. Patient is following commands. She denies any shortness of breathing or pain. Per nurse he has been doing very well and is ambulating with assistance. Patient is impulsive in which he'll try to get out of bed on his own. He has a sitter at the bedside. d/w patient's nurse who had no complaints. He remains afebrile. Objective Vitals Vital Signs Date Time Temp Pulse Resp B/P Pulse Ox O2 Delivery O2 Flow Rate FiO2 11/30/16 08:29 96 Trach Collar 28 11/30/16 08:00 99.0 100 30 143/81 95 11/30/16 08:00 106 11/30/16 07:00 95 Trach Collar 6.00 28 11/30/16 04:00 106 11/30/16 04:00 98.1 106 23 138/89 96 11/30/16 00:00 106 11/30/16 00:00 97.9 106 28 144/85 96 11/29/16 20:00 98.5 103 25 138/80 95 11/29/16 20:00 103 11/29/16 19:00 96 Trach Collar 6.00 28 11/29/16 16:00 97.5 104 24 122/70 100 I/O 11/29/16 11/29/16 11/29/16 11/30/16 11/30/16 11/30/16 07:00 15:00 23:00 07:00 15:00 23:00 Intake Total 600 ml 563 ml 502 ml 458 ml Output Total 400 ml 2 ml 0 ml 0 ml Balance 200 ml 561 ml 502 ml 458 ml Tube Feeding 500 ml 563 ml 412 ml 358 ml Tube Irrigant 100 ml 90 ml 100 ml Output Urine Total 400 ml Stool Total 2 ml 0 ml 0 ml # Voids 3 4 2 # Bowel Movements 1 Result Diagram: 11/29/16 0416 11/29/16 0416 Objective Remarks General: No acute distress. In soft wrist and mitten restraints. Trach collar. Heart: Regular rate and rhythm. No murmur. Lungs: Clear to auscultation bilaterally. No wheezes, rales, or rhonchi. Abdomen: Soft, +mild TTP in epigastric area with deep palpation. , nondistended. Positive bowel sounds but mildly hypoactive. Extremities: No lower extremity edema. SCDs. Psych: Patient is alert and following commands. Procedures 10/05/16 right frontal twist drill for ventriculostomy placement 10/20/16 arterial line placement 10/23/16 bedside percutaneous tracheostomy under direct bronchoscopic visualization 10/24/16 PEG tube placement at bedside Medications and IVs Current Medications Propofol 100 ml @ As Directed STK-MED ONCE .ROUTE ; Start 10/05/16 at 01:16; Stop 10/05/16 at :17; Status DC Cefazolin Sodium/ Dextrose 50 ml @ As Directed STK-MED ONCE .ROUTE ; Start at 01:23; Stop 10/05/16 at 01:24; Status DC Cefazolin Sodium/ Dextrose (Ancef 2 Gm Premix) 50 ml @ 100 mls/hr ONCE STAT IV ; Start 10/05/16 at 01:26; Stop 10/05/16 at 01:55; Status DC Diphtheria/ Tetanus/Acell Pertussis (Boostrix Inj) 0.5 ml ONCE ONCE IM ; Start 10/05/16 at 01:26; Stop 10/05/16 at 01:28; Status DC Nicardipine HCl (Cardene Inj) 25 mg STK-MED ONCE .ROUTE ; Start 10/05/16 at 01:26 ; Stop 10/05/16 at 01:27; Status DC Nicardipine HCl 25 mg 25 mg STK-MED ONCE .ROUTE ; Start 10/05/16 at 01:27; Stop 10/05/16 at 01:28; Status DC Sodium Chloride 1,000 ml @ 0 mls/hr Q0M IV ; Start 10/05/16 at 01:30; Stop at 02:57; Status DC Nicardipine HCl/ Sodium Chloride (Cardene Inj/NS 250 ml Inj) 260 ml @ 0 mls/hr TITRATE ONCE IV Last administered on 10/05/16 02:00; Start 10/05/16 at 02:00; Stop 10/05/16 at 02:01; Status DC Iohexol (Omnipaque 350 Inj) 97 ml STK-MED ONCE IV Last administered on 02:11; Start 10/05/16 at 02:11; Stop 10/05/16 at 02:12; Status DC Etomidate (Amidate Inj) 20 mg STK-MED ONCE .ROUTE ; Start 10/05/16 at 02:13; Stop 10/05/16 at 02:14; Status DC Epinephrine HCl (EPINEPHrine (1:10,000) INJ) 1 mg STK-MED ONCE .ROUTE ; Start at 02:32; Stop 10/05/16 at 02:33; Status DC Atropine Sulfate (Atropine Inj) 1 mg STK-MED ONCE .ROUTE ; Start 10/05/16 at 02: 33; Stop 10/05/16 at 02:34; Status DC Lidocaine HCl 100 mg 100 mg STK-MED ONCE .ROUTE ; Start 10/05/16 at 02:33; Stop 10/05/16 at 02:34; Status DC Sodium Chloride (NS 1000 ml Inj) 1,000 ml @ 84 mls/hr [id number] IV Last administered on 10/14/16 23:55; Start 10/05/16 at 02:31; Stop 10/15/16 at 22:17 ; Status DC Acetaminophen (Tylenol) 650 mg Q6H PRN PO PAIN 1-10 AND/OR FEVER >101F Last administered on 11/24/16 20:17; Start 10/05/16 at 02:45 Morphine Sulfate (Morphine Inj) 2 mg Q2H PRN IV PAIN SCALE 6 TO 10 Last administered on 10/15/16 19:04; Start 10/05/16 at 02:45; Stop 10/22/16 at 06:04 ; Status DC Pantoprazole Sodium (Protonix Inj) 40 mg DAILY IV Last administered on 09:28; Start 10/05/16 at 09:00 Lorazepam (Ativan Inj) 2 mg Q4H PRN IV Agitation/Sedation Last administered on 10/11/16 12:27; Start 10/05/16 at 02:45; Stop 10/18/16 at 14:41; Status DC Artificial Tears (Tears Naturale Opth Soln) 1 drop TID EACH EYE Last administered on 11/30/16 09:00; Start 10/05/16 at 09:00 Ondansetron HCl (Zofran Inj) 4 mg Q6H PRN IV NAUSEA OR VOMITING Last administered on 11/27/16 23:26; Start 10/05/16 at 02:45 Metoclopramide HCl (Reglan Inj) 10 mg Q6H PRN IV NAUSEA OR VOMITING Last administered on 10/13/16 09:48; Start 10/05/16 at 02:45; Stop 10/19/16 at 07:38 ; Status DC Docusate Sodium (Colace) 100 mg Q12H G-TUBE Last administered on 10/30/16 05: 12; Start 10/05/16 at 04:00; Stop 10/31/16 at 16:41; Status DC Albuterol/ Ipratropium (Duoneb Neb) 1 ampule Q2HR NEB PRN INH WHEEZING Last administered on 10/31/16 13:41; Start 10/05/16 at 02:45 Miscellaneous Information 1 [id number] Last administered on 10/05/16 02:45; Start 10/05/16 at 02:45 Chlorhexidine Gluconate (Chlorhexidine 2% Cloth) Taper DAILY@04 TOP Last administered on 11/30/16 04:35; Start 10/05/16 at 04:00; Stop 10/01/17 at 03:59 Chlorhexidine Gluconate 3 pack 3 pack UNSCH PRN TOP HYGIENIC CARE; Start at 02:45 Propofol (Diprivan 1000 Mg/100ml Inj) 100 ml @ 0 mls/hr TITRATE IV Last administered on 10/13/16 16:58; Start 10/05/16 at 02:45; Stop 10/18/16 at 14:41 ; Status DC Nimodipine 60 mg 60 mg Q4HR PO ; Start 10/05/16 at 04:00; Stop 10/05/16 at 04:00; Status DC Potassium Chloride/Sodium Chloride 1,000 ml @ 100 mls/hr Q10H IV ; Start at 02:15; Stop 10/05/16 at 02:56; Status DC Levetriacetam 500 mg/Sodium Chloride 105 ml @ 420 mls/hr Q12HR IV Last administered on 11/26/16 20:08; Start 10/05/16 at 09:00; Stop 11/26/16 at 22:02 ; Status DC Nicardipine HCl/ Sodium Chloride (Cardene Inj/NS 250 ml Inj) 260 ml @ 0 mls/hr TITRATE IV Last administered on 10/18/16 11:23; Start 10/05/16 at 02:45; Stop 11/05/16 at 13:47; Status DC Labetalol HCl (Trandate Inj) 10 mg Q4H PRN IV PUSH SBP>140, DBP>90 Last administered on 11/03/16 05:45; Start 10/05/16 at 02:45; Stop 11/05/16 at 13:47; Status DC Nimodipine (Nimotop) 60 mg Q4HR PO Last administered on 10/17/16 07:16; Start 10/05/16 at 04:00; Stop 10/17/16 at 10:55; Status DC Pravastatin Sodium (Pravachol) 40 mg DAILY PO Last administered on 11/30/16 09 :00; Start 10/05/16 at 09:00 Iohexol (Omnipaque 350 Inj) 75 ml STK-MED ONCE IV Last administered on 04:15; Start 10/05/16 at 04:15; Stop 10/05/16 at 04:16; Status DC Verapamil HCl (Isoptin Inj) 10 mg STK-MED ONCE .ROUTE Last administered on 13:04; Start 10/05/16 at 13:04; Stop 10/05/16 at 13:05; Status DC Heparin Sodium (Porcine) (*HEPARIN INJ Periprocedural ONLY) 10,000 units STK- MED ONCE .ROUTE Last administered on 10/05/16 14:16; Start 10/05/16 at 15:05; Stop 10/05/16 at 15:06; Status DC Iodixanol (Visipaque 320 Inj) 120 ml STK-MED ONCE I-ARTERIAL Last administered on 10/05/16 16:18; Start 10/05/16 at 16:18; Stop 10/05/16 at 16:19; Status DC Fentanyl Citrate 100 mcg 100 mcg STK-MED ONCE .ROUTE ; Start 10/05/16 at 16:49; Stop 10/05/16 at 16:50; Status DC Fentanyl Citrate (fentaNYL DRIP) 250 ml @ 0 mls/hr TITRATE IV Last administered on 10/17/16 00:29; Start 10/05/16 at 22:15; Stop 10/17/16 at 11:30 ; Status DC Norepinephrine Bitartrate 4 mg 4 mg STK-MED ONCE .ROUTE ; Start 10/06/16 at 04:03 ; Stop 10/06/16 at 04:04; Status DC Sodium Chloride (NS 1000 ml Inj) 999 ml @ 0 mls/hr BOLUS ONCE IV Last administered on 10/06/16 06:38; Start 10/06/16 at 06:45; Stop 10/06/16 at 06:46; Status DC Sodium Chloride (NS Flush) See Protocol DAILY IV FLUSH Last administered on 09:29; Start 10/07/16 at 09:00 Sodium Chloride (NS Flush) See Protocol UNSCH PRN IV FLUSH SEE PROTOCOL TABLE; Start 10/06/16 at 12:00 Heparin Sodium (Porcine) (Heparin Central Flush) See Protocol DAILY IV FLUSH Last administered on 10/13/16 09:00; Start 10/07/16 at 09:00; Stop 10/18/16 at 14:41; Status DC Heparin Sodium (Porcine) (Heparin Central Flush) See Protocol UNSCH PRN IV FLUSH SEE PROTOCOL TABLE Last administered on 10/11/16 08:00; Start 10/06/16 at 12:00; Stop 10/18/16 at 14:41; Status DC Sodium Chloride (NS Flush) UNSCH PRN IV FLUSH SEE PROTOCOL TABLE Last administered on 11/21/16 19:37; Start 10/06/16 at 12:00 Norepinephrine Bitartrate 4 mg 4 mg STK-MED ONCE .ROUTE ; Start 10/06/16 at 17:30 ; Stop 10/06/16 at 17:31; Status DC Norepinephrine Bitartrate 4 mg/ Sodium Chloride 254 ml @ 0 mls/hr TITRATE IV Last administered on 10/28/16 20:14; Start 10/06/16 at 18:00; Stop 11/26/16 at 22:03; Status DC Potassium Chloride 100 ml @ 50 mls/hr Q2H PRN IV For Potassium 2.8 - 3.2 mEq/L ; Start 10/07/16 at 08:00; Stop 10/12/16 at 13:11; Status DC Potassium Chloride 100 ml @ 50 mls/hr Q2H PRN IV For Potassium 2.8 - 3.2 mEq/L ; Start 10/07/16 at 08:00; Stop 10/12/16 at 13:11; Status DC Potassium Chloride 100 ml @ 25 mls/hr UNSCH PRN IV For Potassium 3.3 - 3.5 mEq /L Last administered on 10/07/16 15:56; Start 10/07/16 at 08:00; Stop 10/12/16 at 13:11; Status DC Potassium Chloride 100 ml @ 50 mls/hr Q2H PRN IV For Potassium 3.3 - 3.5 mEq/ L Last administered on 10/11/16 07:41; Start 10/07/16 at 08:00; Stop 10/12/16 at 13:11; Status DC Magnesium Sulfate/ Sodium Chloride (Magnesium Sulfate Inj/NS Inj) 100 ml @ 50 mls/hr UNSCH PRN IV For Magnesium 0.9 - 1.1 mg/dL; Start 10/07/16 at 08:00; Stop 10/12/16 at 13:11; Status DC Magnesium Oxide 800 mg 800 mg UNSCH PRN PO For Magnesium 1.2 - 1.6 mg/dL; Start 10/07/16 at 08:00; Stop 10/12/16 at 13:11; Status DC Magnesium Sulfate/ Sodium Chloride (Magnesium Sulfate Inj/NS Inj) 100 ml @ 50 mls/hr UNSCH PRN IV For Magnesium 1.2 - 1.6 mg/dL; Start 10/07/16 at 08:00; Stop 10/12/16 at 13:11; Status DC Potassium Phosphate 2000 mg 2,000 mg Q4H PRN PO For Phosphorus < 2.5 mg/dL; Start 10/07/16 at 08:00; Stop 10/12/16 at 13:11; Status DC Sodium Phosphate/ Sodium Chloride (Sodium Phosphate Inj/NS 250 ml Inj) 250 ml @ 42 mls/hr UNSCH PRN IV For Phosphorus < 2.5 mg/dL; Start 10/07/16 at 08:00; Stop 10/12/16 at 13:11; Status DC Potassium Phosphate 2000 mg 2,000 mg UNSCH PRN PO/TUBE SEE LABEL COMMENTS Last administered on 10/07/16 15:56; Start 10/07/16 at 08:00; Stop 10/12/16 at 13:11; Status DC Potassium Phosphate/Sodium Chloride (Potassium Phosphate Inj/NS 250 ml Inj) 260 ml @ 42 mls/hr UNSCH PRN IV SEE LABEL COMMENTS Last administered on 10/08/16 11:23; Start 10/07/16 at 08:00; Stop 10/12/16 at 13:11; Status DC Clonidine (Catapres) 0.1 mg Q8H PRN NG SBP>170, DBP>90 Last administered on 00:28; Start 10/09/16 at 16:15; Stop 10/18/16 at 14:41; Status DC Polyethylene Glycol (Miralax) 17 gm DAILY PO Last administered on 10/28/16 09: 09; Start 10/10/16 at 14:00; Stop 10/30/16 at 15:12; Status DC Lactulose (Lactulose Liq) 30 ml DAILY PO Last administered on 10/28/16 09:09; Start 10/10/16 at 14:00; Stop 10/30/16 at 15:12; Status DC Metoprolol Tartrate 25 mg 25 mg Q6H PO Last administered on 10/18/16 09:36; Start 10/10/16 at 14:00; Stop 10/18/16 at 14:41; Status DC Labetalol HCl 500 mg/Sodium Chloride 250 ml @ 0 mls/hr TITRATE IV ; Start at 17:00; Stop 10/18/16 at 14:41; Status DC Sodium Chloride (NS 250 ml Inj) 250 ml @ As Directed STK-MED ONCE .ROUTE ; Start 10/11/16 at 02:29; Stop 10/11/16 at 02:30; Status DC Nicardipine HCl (Cardene Inj) 25 mg STK-MED ONCE .ROUTE ; Start 10/11/16 at 02: 29; Stop 10/11/16 at 02:30; Status DC Tamsulosin HCl (Flomax) 0.4 mg Q12HR PO Last administered on 10/17/16 07:16; Start 10/11/16 at 09:00; Stop 10/18/16 at 14:41; Status DC Epinephrine HCl (EPINEPHrine (1:10,000) INJ) 1 mg STK-MED ONCE .ROUTE ; Start at 09:51; Stop 10/11/16 at 09:52; Status DC Atropine Sulfate (Atropine Inj) 1 mg STK-MED ONCE .ROUTE ; Start 10/11/16 at 09: 51; Stop 10/11/16 at 09:52; Status DC Lidocaine HCl (Xylocaine 2% Inj) 100 mg STK-MED ONCE .ROUTE ; Start 10/11/16 at 09:51; Stop 10/11/16 at 09:52; Status DC Iohexol (Omnipaque 350 Inj) 100 ml STK-MED ONCE IV Last administered on 10:56; Start 10/11/16 at 10:56; Stop 10/11/16 at 10:57; Status DC Norepinephrine Bitartrate 4 mg 4 mg STK-MED ONCE .ROUTE ; Start 10/11/16 at 20: 25; Stop 10/11/16 at 20:26; Status DC Aztreonam 2000 mg/ Sodium Chloride 100 ml @ 200 mls/hr Q8H IV Last administered on 10/19/16 01:39; Start 10/12/16 at 02:00; Stop 10/19/16 at 07:38 ; Status DC Pharmacy Profile Note 0 ml @ 0 mls/hr UNSCH OTHER ; Start 10/12/16 at 02:15; Stop 10/13/16 at 17:17; Status DC Metronidazole 100 ml @ 100 mls/hr Q6H IV Last administered on 10/19/16 03:33 ; Start 10/12/16 at 03:00; Stop 10/19/16 at 07:39; Status DC Vancomycin HCl 2500 mg/Sodium Chloride 525 ml @ 250 mls/hr ONCE ONCE IV Last administered on 10/12/16 04:00; Start 10/12/16 at 04:00; Stop 10/12/16 at 06:05 ; Status DC Vancomycin HCl/ Sodium Chloride (Vancomycin Inj/ NS 500 ml Inj) 520 ml @ 250 mls/hr ONCE ONCE IV Last administered on 10/13/16 11:30; Start 10/13/16 at 11 :00; Stop 10/13/16 at 17:17; Status DC Epinephrine HCl (EPINEPHrine (1:10,000) INJ) 1 mg STK-MED ONCE .ROUTE ; Start at 03:26; Stop 10/14/16 at 03:27; Status DC Atropine Sulfate (Atropine Inj) 1 mg STK-MED ONCE .ROUTE ; Start 10/14/16 at 03: 26; Stop 10/14/16 at 03:27; Status DC Lidocaine HCl 100 mg 100 mg STK-MED ONCE .ROUTE ; Start 10/14/16 at 03:27; Stop 10/14/16 at 03:28; Status DC Potassium Chloride 100 ml @ 50 mls/hr Q2H PRN IV For Potassium 2.8 - 3.2 mEq/ L Last administered on 10/30/16 05:12; Start 10/14/16 at 16:00; Stop 10/30/16 at 15:11; Status DC Potassium Chloride (KCl 20 Meq Premix Inj) 100 ml @ 50 mls/hr Q2H PRN IV For Potassium 2.8 - 3.2 mEq/L Last administered on 10/30/16 13:40; Start 10/14/16 at 16:00; Stop 10/30/16 at 15:11; Status DC Potassium Bicarb/ Potassium Chloride 50 meq 50 meq UNSCH PRN PO For Potassium 3.3 - 3.5 mEq/L Last administered on 10/30/16 05:12; Start 10/14/16 at 16:00; Stop 10/30/16 at 15:11; Status DC Potassium Chloride 100 ml @ 25 mls/hr UNSCH PRN IV For Potassium 3.3 - 3.5 mEq /L Last administered on 10/18/16 06:50; Start 10/14/16 at 16:00; Stop 10/30/16 at 15:11; Status DC Potassium Chloride 100 ml @ 50 mls/hr Q2H PRN IV For Potassium 3.3 - 3.5 mEq/ L Last administered on 10/27/16 07:41; Start 10/14/16 at 16:00; Stop 10/30/16 at 15:11; Status DC Magnesium Sulfate/ Sodium Chloride (Magnesium Sulfate Inj/NS Inj) 100 ml @ 50 mls/hr UNSCH PRN IV For Magnesium 0.9 - 1.1 mg/dL; Start 10/14/16 at 16:00; Stop 10/30/16 at 15:11; Status DC Magnesium Oxide 800 mg 800 mg UNSCH PRN PO For Magnesium 1.2 - 1.6 mg/dL; Start 10/14/16 at 16:00; Stop 10/30/16 at 15:11; Status DC Magnesium Sulfate/ Sodium Chloride (Magnesium Sulfate Inj/NS Inj) 100 ml @ 50 mls/hr UNSCH PRN IV For Magnesium 1.2 - 1.6 mg/dL; Start 10/14/16 at 16:00; Stop 10/30/16 at 15:11; Status DC Potassium Phosphate 2000 mg 2,000 mg Q4H PRN PO For Phosphorus < 2.5 mg/dL Last administered on 10/17/16 02:00; Start 10/14/16 at 16:00; Stop 10/30/16 at 15:11; Status DC Sodium Phosphate/ Sodium Chloride (Sodium Phosphate Inj/NS 250 ml Inj) 250 ml @ 42 mls/hr UNSCH PRN IV For Phosphorus < 2.5 mg/dL Last administered on 20:31; Start 10/14/16 at 16:00; Stop 10/30/16 at 15:11; Status DC Potassium Phosphate 2000 mg 2,000 mg UNSCH PRN PO/TUBE SEE LABEL COMMENTS Last administered on 10/18/16 06:51; Start 10/14/16 at 16:00; Stop 10/30/16 at 15:11 ; Status DC Potassium Phosphate/Sodium Chloride (Potassium Phosphate Inj/NS 250 ml Inj) 260 ml @ 42 mls/hr UNSCH PRN IV SEE LABEL COMMENTS; Start 10/14/16 at 16:00; Stop 10/30/16 at 15:11; Status DC Verapamil HCl (Isoptin Inj) 15 mg STK-MED ONCE .ROUTE Last administered on 10/15 12:55; Start 10/15/16 at 12:55; Stop 10/15/16 at 12:56; Status DC Verapamil HCl (Isoptin Inj) 5 mg STK-MED ONCE .ROUTE Last administered on 13:33; Start 10/15/16 at 13:33; Stop 10/15/16 at 13:34; Status DC Iodixanol 75 ml 75 ml STK-MED ONCE I-ARTERIAL Last administered on 10/15/16 13 :52; Start 10/15/16 at 13:52; Stop 10/15/16 at 13:53; Status DC Sodium Chloride (NS 250 ml Inj) 250 ml @ As Directed STK-MED ONCE .ROUTE ; Start 10/15/16 at 20:40; Stop 10/15/16 at 20:41; Status DC Nicardipine HCl 25 mg 25 mg STK-MED ONCE .ROUTE ; Start 10/15/16 at 20:40; Stop 10/15/16 at 20:41; Status DC Sodium Chloride (NS 250 ml Inj) 250 ml @ As Directed STK-MED ONCE .ROUTE ; Start 10/15/16 at 22:51; Stop 10/15/16 at 22:52; Status DC Nicardipine HCl 25 mg 25 mg STK-MED ONCE .ROUTE ; Start 10/15/16 at 22:51; Stop 10/15/16 at 22:52; Status DC Sodium Chloride (NS 250 ml Inj) 250 ml @ As Directed STK-MED ONCE .ROUTE ; Start 10/16/16 at 01:03; Stop 10/16/16 at 01:04; Status DC Nicardipine HCl 25 mg 25 mg STK-MED ONCE .ROUTE ; Start 10/16/16 at 01:03; Stop 10/16/16 at 01:05; Status DC Sodium Chloride (NS 250 ml Inj) 250 ml @ As Directed STK-MED ONCE .ROUTE ; Start 10/16/16 at 01:47; Stop 10/16/16 at 01:48; Status DC Nicardipine HCl (Cardene Inj) 25 mg STK-MED ONCE .ROUTE ; Start 10/16/16 at 01: 47; Stop 10/16/16 at 01:48; Status DC Nicardipine HCl (Cardene Inj) 25 mg STK-MED ONCE .ROUTE ; Start 10/16/16 at 03: 51; Stop 10/16/16 at 03:52; Status DC Epinephrine HCl (EPINEPHrine (1:10,000) INJ) 1 mg STK-MED ONCE .ROUTE ; Start at 03:57; Stop 10/16/16 at 03:58; Status DC Atropine Sulfate (Atropine Inj) 1 mg STK-MED ONCE .ROUTE ; Start 10/16/16 at 03: 57; Stop 10/16/16 at 03:58; Status DC Lidocaine HCl (Xylocaine 2% Inj) 100 mg STK-MED ONCE .ROUTE ; Start 10/16/16 at 03:57; Stop 10/16/16 at 03:58; Status DC Diphenhydramine HCl (Benadryl Inj) 25 mg Q6H PRN IV RASH Last administered on 03:12; Start 10/16/16 at 08:15; Stop 10/18/16 at 14:41; Status DC Nimodipine (Nimotop) 30 mg Q2H PO Last administered on 10/26/16 06:53; Start 10/17/16 at 11:00; Stop 10/26/16 at 08:46; Status DC Iohexol 70 ml 70 ml STK-MED ONCE IV Last administered on 10/19/16 14:36; Start 10/19/16 at 14:36; Stop 10/19/16 at 14:37; Status DC Phenylephrine HCl/ Sodium Chloride (Neosynephrine Inj/NS 500 ml Inj) 500 ml @ 0 mls/hr TITRATE IV Last administered on 10/20/16 16:29; Start 10/19/16 at 16:30 ; Stop 10/23/16 at 10:42; Status DC Alteplase, Recombinant (Cathflo Activase Inj) 2 mg UNSCH PRN IV FLUSH PICC LINE OCCLUSION Last administered on 11/01/16 21:47; Start 10/19/16 at 16:15; Stop 11/05/16 at 13:47; Status DC Verapamil HCl (Isoptin Inj) 5 mg STK-MED ONCE .ROUTE Last administered on 17:20; Start 10/19/16 at 16:05; Stop 10/19/16 at 16:06; Status DC Midazolam HCl (Versed Inj) 2 mg STK-MED ONCE .ROUTE Last administered on 17:18; Start 10/19/16 at 17:18; Stop 10/19/16 at 17:19; Status DC Verapamil HCl (Isoptin Inj) 5 mg STK-MED ONCE .ROUTE Last administered on 17:27; Start 10/19/16 at 17:27; Stop 10/19/16 at 17:28; Status DC Iodixanol (Visipaque 320 Inj) 100 ml STK-MED ONCE I-ARTERIAL Last administered on 10/19/16 18:08; Start 10/19/16 at 18:08; Stop 10/19/16 at 18:09; Status DC Diphenhydramine HCl 6.25 mg 6.25 mg Q4H PRN IV PUSH itching, rash Last administered on 11/04/16 20:45; Start 10/19/16 at 19:15; Stop 11/05/16 at 13:47; Status DC Vancomycin HCl 1250 mg/Sodium Chloride 262.5 ml @ 250 mls/hr ONCE ONCE IV ; Start 10/20/16 at 12:30; Stop 10/20/16 at 12:33; Status DC Cefepime HCl 2000 mg/Sodium Chloride 100 ml @ 200 mls/hr Q8H IV Last administered on 10/29/16 21:00; Start 10/20/16 at 13:00; Stop 10/29/16 at 23:59 ; Status DC Metronidazole 100 ml @ 100 mls/hr Q6H IV Last administered on 10/23/16 08:13 ; Start 10/20/16 at 14:00; Stop 10/23/16 at 10:43; Status DC Vancomycin HCl 1250 mg/Sodium Chloride 262.5 ml @ 250 mls/hr ONCE ONCE IV Last administered on 10/20/16 15:00; Start 10/20/16 at 15:00; Stop 10/20/16 at 16:02; Status DC Vasopressin/ Dextrose (Pitressin Inj/ D5W 100 ml Inj) 100 ml @ 6 mls/hr [id number] IV Last administered on 10/23/16 04:16; Start 10/20/16 at 15:23; Stop at 10:43; Status DC Dextrose (D50w (Vial) Inj) 25 ml UNSCH PRN IV PUSH HYPOGLYCEMIA-SEE COMMENTS; Start 10/20/16 at 17:15; Stop 10/30/16 at 15:07; Status DC Insulin Human Regular 1 1 Q6HR SQ Last administered on 10/23/16 05:39; Start 10/20/16 at 18:00; Stop 10/30/16 at 15:07; Status DC Sodium Chloride 500 ml @ 500 mls/hr BOLUS ONCE IV Last administered on 18:27; Start 10/20/16 at 17:15; Stop 10/20/16 at 18:14; Status DC Sodium Chloride 1,000 ml @ 999 mls/hr BOLUS ONCE IV Last administered on 10/21 10:01; Start 10/21/16 at 08:30; Stop 10/21/16 at 09:30; Status DC Sodium Chloride (NS 1000 ml Inj) 1,000 ml @ 60 mls/hr [id number] IV Last administered on 11/18/16 00:21; Start 10/21/16 at 08:30; Stop 11/18/16 at 08:54 ; Status DC Sodium Chloride 2 gm 2 gm Q8HR PO Last administered on 10/22/16 04:56; Start 10/21/16 at 08:30; Stop 10/22/16 at 10:01; Status DC Sodium Chloride (NS 500 ml Inj) 500 ml @ 500 mls/hr BOLUS ONCE IV Last administered on 10/21/16 20:06; Start 10/21/16 at 19:15; Stop 10/21/16 at 20:14 ; Status DC Fludrocortisone Acetate 0.1 mg 0.1 mg Q12HR PO Last administered on 10/22/16 09:13; Start 10/22/16 at 09:00; Stop 10/22/16 at 16:26; Status DC Sodium Chloride 500 ml @ 20 mls/hr ONCE ONCE IV Last administered on 06:15; Start 10/22/16 at 06:15; Stop 10/23/16 at 07:14; Status DC Sodium Chloride (NS 1000 ml Inj) 1,000 ml @ 999 mls/hr BOLUS ONCE IV Last administered on 10/22/16 06:15; Start 10/22/16 at 06:15; Stop 10/22/16 at 07:15 ; Status DC Sodium Chloride (Sodium Chloride) 3 gm Q8HR PO Last administered on 11/16/16 05:48; Start 10/22/16 at 14:00; Stop 11/16/16 at 09:16; Status DC Fludrocortisone Acetate 0.2 mg 0.2 mg Q12HR PO Last administered on 11/30/16 09:28; Start 10/22/16 at 21:00 Sodium Chloride 1,000 ml @ 999 mls/hr BOLUS ONCE IV Last administered on 10/22 16:49; Start 10/22/16 at 16:30; Stop 10/22/16 at 17:30; Status DC Sodium Chloride 500 ml @ 40 mls/hr CONTINUOUS IV Last administered on 18:50; Start 10/22/16 at 16:30; Stop 10/23/16 at 19:54; Status DC Sodium Chloride (NS 500 ml Inj) 500 ml @ 500 mls/hr BOLUS ONCE IV Last administered on 10/23/16 06:46; Start 10/23/16 at 06:45; Stop 10/23/16 at 07:44 ; Status DC Cisatracurium Besylate 20 mg 20 mg STAT ONCE IV Last administered on 11:35; Start 10/23/16 at 10:30; Stop 10/23/16 at 11:01; Status DC Propofol (Diprivan 1000 Mg/100ml Inj) 100 ml @ 0 mls/hr TITRATE IV ; Start 10/23 at 10:30; Stop 10/25/16 at 11:27; Status DC Fentanyl Citrate (fentaNYL INJ) 100 mcg STAT ONCE IV PUSH Last administered on 10/23/16 11:35; Start 10/23/16 at 10:30; Stop 10/23/16 at 11:02; Status DC Enoxaparin Sodium 40 mg 40 mg Q24H SQ Last administered on 11/29/16 20:57; Start 10/23/16 at 21:00 Sodium Chloride (Sodium Chloride 3% Inj) 500 ml @ 20 mls/hr CONTINUOUS IV Last administered on 10/24/16 10:32; Start 10/23/16 at 20:00; Stop 10/25/16 at 20:01; Status DC Propofol 130 mg 130 mg STK-MED ONCE IV ; Start 10/24/16 at 08:53; Stop 10/24/16 at 10:11; Status DC Potassium Chloride 100 ml @ 50 mls/hr Q2H PRN IV For Potassium 2.8 - 3.2 mEq/ L Last administered on 11/03/16 05:17; Start 10/24/16 at 15:15; Stop 11/04/16 at 12:19; Status DC Potassium Chloride (KCl 20 Meq Premix Inj) 100 ml @ 50 mls/hr Q2H PRN IV For Potassium 2.8 - 3.2 mEq/L Last administered on 10/31/16 16:39; Start 10/24/16 at 15:15; Stop 11/04/16 at 12:19; Status DC Potassium Bicarb/ Potassium Chloride 50 meq 50 meq UNSCH PRN PO For Potassium 3.3 - 3.5 mEq/L; Start 10/24/16 at 15:15; Stop 11/04/16 at 12:19; Status DC Potassium Chloride 100 ml @ 25 mls/hr UNSCH PRN IV For Potassium 3.3 - 3.5 mEq /L Last administered on 10/26/16t 21:47; Start 10/24/16 at 15:15; Stop 11/04/16 at 12:19; Status DC Potassium Chloride 100 ml @ 50 mls/hr Q2H PRN IV For Potassium 3.3 - 3.5 mEq/L ; Start 10/24/16 at 15:15; Stop 11/04/16 at 12:19; Status DC Magnesium Sulfate/ Sodium Chloride (Magnesium Sulfate Inj/NS Inj) 100 ml @ 50 mls/hr UNSCH PRN IV For Magnesium 0.9 - 1.1 mg/dL; Start 10/24/16 at 15:15; Stop 11/04/16 at 12:19; Status DC Magnesium Oxide 800 mg 800 mg UNSCH PRN PO For Magnesium 1.2 - 1.6 mg/dL; Start 10/24/16 at 15:15; Stop 11/04/16 at 12:19; Status DC Magnesium Sulfate/ Sodium Chloride (Magnesium Sulfate Inj/NS Inj) 100 ml @ 50 mls/hr UNSCH PRN IV For Magnesium 1.2 - 1.6 mg/dL; Start 10/24/16 at 15:15; Stop 11/04/16 at 12:19; Status DC Potassium Phosphate 2000 mg 2,000 mg Q4H PRN PO For Phosphorus < 2.5 mg/dL; Start 10/24/16 at 15:15; Stop 11/04/16 at 12:19; Status DC Sodium Phosphate/ Sodium Chloride (Sodium Phosphate Inj/NS 250 ml Inj) 250 ml @ 42 mls/hr UNSCH PRN IV For Phosphorus < 2.5 mg/dL; Start 10/24/16 at 15:15; Stop 11/04/16 at 12:19; Status DC Potassium Phosphate 2000 mg 2,000 mg UNSCH PRN PO/TUBE SEE LABEL COMMENTS; Start 10/24/16 at 15:15; Stop 11/04/16 at 12:19; Status DC Potassium Phosphate 30 mmol/ Sodium Chloride 260 ml @ 42 mls/hr UNSCH PRN IV SEE LABEL COMMENTS; Start 10/24/16 at 15:15 Sodium Chloride 500 ml @ 10 mls/hr Q24H IV Last administered on 10/29/16 20: 54; Start 10/25/16 at 21:00; Stop 10/30/16 at 12:48; Status DC Cefepime HCl/ Sodium Chloride (Maxipime Inj/NS Inj) 100 ml @ 200 mls/hr Q8HR IV Last administered on 11/06/16 05:05; Start 10/30/16 at 14:00; Stop 11/06/16 at 12:00; Status DC Fentanyl Citrate (fentaNYL INJ) 50 mcg Q3H PRN IV PAIN 1-10 Last administered on 11/05/16 05:07; Start 10/30/16 at 15:15; Stop 11/05/16 at 13:47; Status DC Docusate Sodium 100 mg 100 mg Q12H G-TUBE Last administered on 11/03/16 17:00; Start 10/31/16 at 17:00; Stop 11/06/16 at 16:48; Status DC Potassium Chloride 100 ml @ 50 mls/hr Q2H PRN IV For Potassium 2.8 - 3.2 mEq/ L Last administered on 11/20/16 07:31; Start 11/03/16 at 05:15 Potassium Chloride (KCl 20 Meq Premix Inj) 100 ml @ 50 mls/hr Q2H PRN IV For Potassium 2.8 - 3.2 mEq/L Last administered on 11/29/16 06:01; Start 11/03/16 at 05:15 Potassium Bicarb/ Potassium Chloride 50 meq 50 meq UNSCH PRN PO For Potassium 3.3 - 3.5 mEq/L Last administered on 11/22/16 07:07; Start 11/03/16 at 05:15 Potassium Chloride 100 ml @ 25 mls/hr UNSCH PRN IV For Potassium 3.3 - 3.5 mEq /L Last administered on 11/19/16 01:44; Start 11/03/16 at 05:15 Potassium Chloride 100 ml @ 50 mls/hr Q2H PRN IV For Potassium 3.3 - 3.5 mEq/ L Last administered on 11/25/16 08:51; Start 11/03/16 at 05:15 Magnesium Sulfate/ Sodium Chloride (Magnesium Sulfate Inj/NS Inj) 100 ml @ 50 mls/hr UNSCH PRN IV For Magnesium 0.9 - 1.1 mg/dL; Start 11/03/16 at 05:15 Magnesium Oxide 800 mg 800 mg UNSCH PRN PO For Magnesium 1.2 - 1.6 mg/dL; Start 11/03/16 at 05:15 Magnesium Sulfate/ Sodium Chloride (Magnesium Sulfate Inj/NS Inj) 100 ml @ 50 mls/hr UNSCH PRN IV For Magnesium 1.2 - 1.6 mg/dL; Start 11/03/16 at 05:15 Potassium Phosphate 2000 mg 2,000 mg Q4H PRN PO For Phosphorus < 2.5 mg/dL; Start 11/03/16 at 05:15 Sodium Phosphate/ Sodium Chloride (Sodium Phosphate Inj/NS 250 ml Inj) 250 ml @ 42 mls/hr UNSCH PRN IV For Phosphorus < 2.5 mg/dL; Start 11/03/16 at 05:15 Potassium Phosphate (K-Phos) 2,000 mg UNSCH PRN PO/TUBE SEE LABEL COMMENTS; Start 11/03/16 at 05:15 Furosemide 40 mg 40 mg ONCE ONCE IV PUSH Last administered on 11/03/16 18:16; Start 11/03/16 at 18:15; Stop 11/03/16 at 18:16; Status DC Potassium Chloride/Sodium Chloride (KCl Inj/NS Inj) 115 ml @ 38.333 mls/ hr Q3H IV-CENTRAL Last administered on 11/03/16 22:53; Start 11/03/16 at 20:00; Stop 11/04/16 at 01:59; Status DC Labetalol HCl (Trandate) 100 mg Q8H PO Last administered on 11/30/16 11:39; Start 11/03/16 at 20:00 Hydralazine HCl (Apresoline) 50 mg Q12HR PO Last administered on 11/30/16 09: 33; Start 11/03/16 at 19:00 Amlodipine Besylate (Norvasc) 5 mg DAILY PO Last administered on 11/30/16 09: 27; Start 11/04/16 at 09:00 Nystatin (Mycostatin Powder) 1 applic TID TOPICAL Last administered on 09:00; Start 11/06/16 at 09:00 Lactobacillus Acidophilus (Lactinex) 1 tab Q12HR PO Last administered on 09:28; Start 11/06/16 at 21:00 Quetiapine Fumarate (SEROquel) 25 mg BID@09,12 PO Last administered on 11:39; Start 11/07/16 at 09:00 Multi-Ingredient Mouthwash/Gargle (Magic Mouthwash Adult Liq) 5 ml QID SWISH- SWAL Last administered on 11/16/16 13:00; Start 11/06/16 at 18:00; Stop at 17:59; Status DC Docusate Sodium (Colace Liq) 100 mg Q12H PRN G-TUBE constipation; Start at 17:00 Potassium Bicarbonate (Effer-K Eff) 25 meq DAILY PO Last administered on 09:00; Start 11/06/16 at 17:00; Stop 11/09/16 at 16:59; Status DC Diphenhydramine HCl (Benadryl Inj) 25 mg ONCE ONCE IV PUSH Last administered on 11/08/16 01:55; Start 11/08/16 at 01:45; Stop 11/08/16 at 01:46; Status DC Loperamide HCl (Imodium) 2 mg UNSCH PRN PO DIARRHEA Last administered on 12:57; Start 11/09/16 at 09:45 Diphenoxylate HCl/ Atropine (Lomotil Tab) 1 tab Q6H PRN PO severe diarrhea ; Start 11/09/16 at 09:45 Metronidazole (Flagyl) 500 mg Q8H PO Last administered on 11/30/16 09:28; Start 11/09/16 at 16:00 Thrombin (Thrombin Top Soln) 10,000 units STK-MED ONCE .ROUTE ; Start 11/10/16 at 08:31; Stop 11/10/16 at 08:32; Status DC Gelatin (Gelfoam 100 Top) 1 foam STK-MED ONCE .ROUTE ; Start 11/10/16 at 08:31; Stop 11/10/16 at 08:32; Status DC Potassium Bicarb/ Potassium Chloride 50 meq 50 meq NOW ONCE NG Last administered on 11/15/16 20:42; Start 11/15/16 at 20:45; Stop 11/15/16 at 20:46 ; Status DC Potassium Chloride (KCl 40 Meq Premix Inj) 100 ml @ 25 mls/hr Q4H IV Last administered on 11/16/16 01:13; Start 11/15/16 at 21:00; Stop 11/16/16 at 04:59 ; Status DC Sodium Chloride (Sodium Chloride) 2 gm Q8HR PO Last administered on 11/21/16 13:21; Start 11/16/16 at 14:00; Stop 11/21/16 at 17:30; Status DC Diphenhydramine HCl (Benadryl Inj) 50 mg Q6H PRN IV ITCHING Last administered on 11/29/16 23:29; Start 11/16/16 at 23:00 Diphenhydramine HCl (Benadryl Inj) 50 mg STK-MED ONCE .ROUTE ; Start 11/16/16 at 22:55; Stop 11/16/16 at 22:56; Status DC Quetiapine Fumarate (SEROquel) 25 mg HS PO Last administered on 11/29/16 20:57 ; Start 11/20/16 at 21:00 Sodium Chloride (Sodium Chloride) 2 gm BID PO Last administered on 11/23/16 07 :28; Start 11/22/16 at 09:00; Stop 11/23/16 at 11:40; Status DC Potassium Chloride (KCl) 20 meq BID PO Last administered on 11/24/16 20:18; Start 11/23/16 at 09:00; Stop 11/25/16 at 14:47; Status DC Sodium Chloride (Sodium Chloride) 2 gm DAILY PO Last administered on 11/30/16 09:27; Start 11/24/16 at 09:00 Thrombin (Thrombin Top Soln) 10,000 units STK-MED ONCE .ROUTE Last administered on 11/24/16 15:50; Start 11/24/16 at 07:55; Stop 11/24/16 at 07:56 ; Status DC Gelatin (Gelfoam 100 Top) 1 foam STK-MED ONCE .ROUTE Last administered on 15:50; Start 11/24/16 at 07:56; Stop 11/24/16 at 07:57; Status DC Lidocaine/ Epinephrine (Xylocaine-Epi 1%-1:100,000 Inj) 50 ml STK-MED ONCE .ROUTE Last administered on 11/24/16 15:50; Start 11/24/16 at 07:56; Stop at 07:57; Status DC Gentamicin Sulfate (Gentamicin Inj) 240 mg STK-MED ONCE .ROUTE Last administered on 11/24/16 15:50; Start 11/24/16 at 07:56; Stop 11/24/16 at 07:57 ; Status DC Vancomycin HCl 1000 mg 1,000 mg STK-MED ONCE .ROUTE Last administered on 15:40; Start 11/24/16 at 14:41; Stop 11/24/16 at 14:42; Status DC Sodium Chloride (NS 250 ml Inj) 250 ml @ As Directed STK-MED ONCE .ROUTE ; Start 11/24/16 at 14:41; Stop 11/24/16 at 14:42; Status DC Fentanyl Citrate 250 mcg 250 mcg STK-MED ONCE .ROUTE ; Start 11/24/16 at 17:28; Stop 11/24/16 at 17:29; Status DC Potassium Chloride/Sodium Chloride (1/2 NS + KCl 20 Meq Inj) 1,000 ml @ 84 mls/ hr [id number] IV Last administered on 11/24/16 20:52; Start 11/24/16 at 17:45; Stop 11/24/16 at 23:44; Status DC Miscellaneous Information ALL NURSING DEPARTME... UNSCH PRN .XX SEE LABEL COMMENTS; Start 11/24/16 at 18:15; Stop 11/25/16 at 18:14; Status DC Potassium Bicarb/ Potassium Chloride (K-Lyte Cl Eff) 25 meq Q12HR NG Last administered on 11/30/16 09:28; Start 11/25/16 at 21:00 Propofol (Diprivan 200 Mg/20 ml Inj) 200 mg STK-MED ONCE IV ; Start 11/24/16 at 14:31; Stop 11/29/16 at 14:34; Status DC Ephedrine Sulfate (ePHEDrine/NS 25 MG/5 ML SYR) 25 mg STK-MED ONCE IV ; Start at 14:31; Stop 11/29/16 at 14:34; Status DC Neostigmine Methylsulfate (Prostigmin Inj) 3 mg STK-MED ONCE IV ; Start at 14:31; Stop 11/29/16 at 14:34; Status DC Phenylephrine HCl (Neosynephrine/ NS 1000 Mcg/10ml Syr) 2,000 mcg STK-MED ONCE IV ; Start 11/24/16 at 14:31; Stop 11/29/16 at 14:34; Status DC Ondansetron HCl (Zofran Inj) 4 mg STK-MED ONCE IV PUSH ; Start 11/24/16 at 14:31 ; Stop 11/29/16 at 14:34; Status DC Vasopressin (Pitressin Inj) 20 units STK-MED ONCE IV ; Start 11/24/16 at 14:31; Stop 11/29/16 at 14:34; Status DC A/P Problem List: (1) 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 ICD Code: I60.8 Status: Acute (2) Hypertension ICD Code: I10 Status: Chronic (3) Major neurocognitive disorder due to vascular disease, without behavioral disturbance, severe ICD Code: F01.50 Status: Acute (4) Septic shock ICD Code: A41.9 Status: Resolved (5) Hydrocephalus ICD Code: G91.9 Status: Acute (6) Intracranial hemorrhage ICD Code: I62.9 Status: Acute (7) Major neurocognitive disorder as late effect of traumatic brain injury with behavioral disturbance ICD Code: S06.9X9S Status: Acute (8) Encephalopathy ICD Code: G93.40 Status: Acute (9) Sepsis ICD Code: A41.9 Status: Resolved (10) Pneumonia ICD Code: J18.9 Status: Acute (11) Protein-calorie malnutrition, mild ICD Code: E44.1 Status: Acute (12) Acute respiratory failure with hypoxia and hypercarbia ICD Code: J96.01 Status: Acute Assessment and Plan Aneurysmal subarachnoid hemorrhage, occurred on 10/05/16: -Appreciate neurosurgery recommendations. Okay for Lovenox per neurosurgery. Continue Keppra for seizure prophylaxis. -Status post METAL TURNER shunt on 11/24/2016 + Streptococcus viridans in the CSF broth, media was negative. -Clinically patient is doing well. -d/w Dr. Mace over the phone and he stated that CSF fluid was obtain as routine when he does have METAL TURNER shunt. -Dr. Mace stated most likely a contaminant but wants me to reconsult infectious disease. Consult placed. Pending recommendations. Projectile vomiting on 11/26/2016 with mild epigastric pain -Patient has been asymptomatic since then. KUB negative for any small bowel obstruction or ileus. -Patient is on a PPI. -Continue to monitor clinically. Encephalopathy: -Secondary to above. Mental status is improving slowly. Acute hypoxic, hypercarbic respiratory failure: -Tracheostomy 10/23/16. Continue supplemental oxygen. DuoNeb as needed, scheduled. Trach management per pulmonology. Septic shock: Resolved. Possible cerebral salt wasting: - Continue Florinef, sodium chloride tablets. Mild acute protein calorie malnutrition -Continue tube feedings. Monitor labs. Pneumonia: - Completed antibiotics. C. difficile colitis: -Continue Flagyl. Repeat C. difficile studies are negative. -Patient needs 1 more repeat in order to be off of isolation. Hyperglycemia of critical illness: - Improved. Hydrocephalus: -Repeat head CT unchanged. METAL TURNER shunt placement today. Hypokalemia -: Improved DVT prophylaxis: SCDs, YOUSIF hose, Lovenox. GI prophylaxis: Protonix. . Discharge Planning Patient stable to be transferred out of [facility] but no beds available. pending SSI and medicaid for placement. Problem Qualifiers (1) Hypertension: Qualified Code: I10 - Essential hypertension Sandra Ramos MD November 30, 2016 12:49
--- NOTE | 2016-11-30 14:37 | HHI.IDPN ---
Subjective Subjective Remarks X cover for DDr Namni chart reviwed 51 yo M is a 51 y/o CM with traumatic brain ijury 2 mos ago sp [employer] shunt placement on 11/24 has NO WBC'S, NO ORGANISMS on G stain; CSF CULTURE Final has NO GROWTH ON ORIGINAL SOLID MEDIA. + GROWTH VIRIDANS STREPTOCOCCUS GRP FROM BROTH ONLY Fluid was obtained as a part of procedural protocol, dw Dr Mace - there wer no clinical concerns for infx prior to obtaining the specimen Pt chart was reviewed, no fever, no leukocytosis doc'd Stable neurologivcal changes He also was diagnosed with C.diff and is on flagyl x 3 wks He is afebrile WBC are normal Antibiotics flagyl - started on 11/09 Allergies: Coded Allergies: Penicillin (Verified Allergy, Unknown, 10/06/16) Sulfa (Verified Allergy, Unknown, 10/06/16) Objective . Vital Signs Date Time Temp Pulse Resp B/P Pulse Ox O2 Delivery O2 Flow Rate FiO2 11/30/16 12:00 105 11/30/16 12:00 98.3 105 24 113/56 97 11/30/16 08:29 96 Trach Collar 28 11/30/16 08:00 99.0 100 30 143/81 95 11/30/16 08:00 106 11/30/16 07:00 95 Trach Collar 6.00 28 11/30/16 04:00 106 11/30/16 04:00 98.1 106 23 138/89 96 11/30/16 00:00 106 11/30/16 00:00 97.9 106 28 144/85 96 11/29/16 20:00 98.5 103 25 138/80 95 11/29/16 20:00 103 11/29/16 19:00 96 Trach Collar 6.00 28 11/29/16 16:00 97.5 104 24 122/70 100 11/29/16 11/29/16 11/30/16 15:00 23:00 07:00 Intake Total 563 ml 502 ml 458 ml Output Total 2 ml 0 ml 0 ml Balance 561 ml 502 ml 458 ml Tube Feeding 563 ml 412 ml 358 ml Tube Irrigant 90 ml 100 ml Stool Total 2 ml 0 ml 0 ml # Voids 3 4 2 . Laboratory Tests Test 11/29/16 04:16 White Blood Count 10.1 TH/MM3 Red Blood Count 3.71 MIL/MM3 Hemoglobin 10.3 GM/DL Hematocrit 32.3 % Mean Corpuscular Volume 87.0 FL Mean Corpuscular Hemoglobin 27.8 PG Mean Corpuscular Hemoglobin 32.0 % Concent Red Cell Distribution Width 15.0 % Platelet Count 284 TH/MM3 Mean Platelet Volume 8.7 FL Laboratory Tests Test 11/29/16 04:16 Sodium Level 146 MEQ/L Potassium Level 3.5 MEQ/L Chloride Level 108 MEQ/L Carbon Dioxide Level 32.0 MEQ/L Anion Gap 6 MEQ/L Blood Urea Nitrogen 15 MG/DL Creatinine 0.85 MG/DL Estimat Glomerular Filtration 95 ML/MIN Rate Random Glucose 103 MG/DL Calcium Level 8.5 MG/DL Imaging Last Impressions Abdomen X-Ray 11/28/16 0000 Signed Impressions: Service Date/Time: Monday, November 28, 2016 16:00 - CONCLUSION: 1. No evidence of bowel obstruction, ileus or perforation. 2. Degenerative changes and scoliosis of the thoracolumbar spine. 3. Degenerative changes involving the hip joints bilaterally. Juan Worley MD Head CT 11/24/16 0000 Signed Impressions: Service Date/Time: October 22:29 - CONCLUSION: Patient is now shunted. Normal ventricular size. No bleed or other acute complication. Tim Hammonds MD Chest X-Ray 11/01/16 0600 Signed Impressions: Service Date/Time: Tuesday, November 01, 2016 04:37 - CONCLUSION: 1. No acute cardiopulmonary disease. Trevin De León MD Transcranial Doppler Study Complete 10/26/16 0700 Signed Impressions: Service Date/Time: Wednesday, October 26, 2016 08:20 - CONCLUSION: Minimal interval improvement with no evidence for vasospasm. Christian Song MD FACR Neck CTA 10/19/16 0000 Signed Impressions: Service Date/Time: Wednesday, October 19, 2016 14:19 - CONCLUSION: Negative for dissection or significant stenosis. Christian Song MD FACR Head CTA 10/19/16 0000 Signed Impressions: Service Date/Time: Wednesday, October 19, 2016 14:19 - CONCLUSION: 1. Interval development of significant vasospasm in the left MCA and SRI territories. 2. Mild vasospasm in the basilar artery.. Gume Mckeon MD Cerebral Arteriogram 10/19/16 0000 Signed Impressions: Service Date/Time: Wednesday, October 19, 2016 16:06 - CONCLUSION: 1. Vasospasm in the left MCA and SRI territories 2. Spasmolytic infusion, left internal carotid artery as above.. 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 Gume Mckeon MD Pelvis X-Ray 10/05/16109 Signed Impressions: Service Date/Time: Wednesday, October 05, 2016 01:22 - CONCLUSION: Unremarkable examination of the pelvis. Ruben Acuña Jr., MD Chest CT 10/05/16109 Signed Impressions: Service Date/Time: Wednesday, October 05, 2016 01:46 - CONCLUSION: 1. No acute intrathoracic abnormality. 2. Bibasilar atelectasis. 3. Cardiomegaly. 4. Prior granulomatous disease. Ruben Acuña Jr., MD Cervical Spine CT 10/05/16109 Signed Impressions: Service Date/Time: Wednesday, October 05, 2016 01:40 - CONCLUSION: 1. No fracture or dislocation. 2. Multilevel degenerative changes. Ruben Acuña Jr., MD Abdomen/Pelvis CT 10/05/16109 Signed Impressions: Service Date/Time: Wednesday, October 05, 2016 01:46 - CONCLUSION: 1. No acute trauma. 2. Rounded area of decreased density involving the pancreatic head. I cannot completely exclude pancreatic head mass. At some point MRI of the pancreas is suggested to further evaluate. 3. Focal area of poor enhancement involving the left kidney. This may relate to an area of parenchymal scarring. I cannot completely exclude a mass. This can be further assessed with MRI as well. Ruben Acuña Jr., MD Physical Exam GENERAL: This is a well-nourished, well-developed patient, in no apparent distress. SKIN: no rash HEAD: R parietal incision clean ands dry reed in, no drainage EYES: Pupils equal round and reactive. Extraocular motions intact. No scleral icterus. No injection or drainage. ENT: oral mucosa moist NECK: Trachea midline. Supple, nontender, no meningeal signs. CARDIOVASCULAR: RRR RESPIRATORY: Clear to auscultation. Breath sounds equal bilaterally. No wheezes , rales, or rhonchi. GASTROINTESTINAL: Abdomen soft, non-tender, nondistended. No hepato-splenomegaly , or palpable masses. No guarding. Incision druy and clean PEG in place MUSCULOSKELETAL: Extremities without clubbing, cyanosis, or edema. NEUROLOGICAL: Awake and alert. moves all 4 extremeties confused, oriented x 1 only, follows commands intermittenly Psych: calm IV line sites with no e.o infection. Assessment & Plan Remarks TBI Sp [employer] shunt placement CSF clx positive for bacteria cw contamination -Viridans strep on broth only in CSF clx - no clinical s/o - C.diff not 027 sp 3 wks of flagyl _ observe pt off abx - if any signs of [employer] shunt infx (fever, leukocytosis, MS change etc) will obtaine another shunt CSF specument - Jodie Goldstein Dr, MD November 30, 2016 14:36
--- NOTE | 2016-11-30 20:28 | HHI.PR ---
Subjective Remarks 51 YOWM with TBI,RF,Trach On trach collar Mod amount of trach secretions More awake, strong cough No Fever Objective Vital Signs Vital Signs Date Time Temp Pulse Resp B/P Pulse Ox O2 Delivery O2 Flow Rate FiO2 11/30/16 16:00 105 11/30/16 16:00 98.3 105 24 113/56 97 11/30/16 12:00 105 11/30/16 12:00 98.3 105 24 113/56 97 11/30/16 08:29 96 Trach Collar 28 11/30/16 08:00 99.0 100 30 143/81 95 11/30/16 08:00 106 11/30/16 07:00 95 Trach Collar 6.00 28 11/30/16 04:00 106 11/30/16 04:00 98.1 106 23 138/89 96 11/30/16 00:00 106 11/30/16 00:00 97.9 106 28 144/85 96 I/O 11/29/16 11/29/16 11/29/16 11/30/16 11/30/16 11/30/16 07:00 15:00 23:00 07:00 15:00 23:00 Intake Total 600 ml 563 ml 502 ml 458 ml 681 ml Output Total 400 ml 2 ml 0 ml 0 ml 3 ml Balance 200 ml 561 ml 502 ml 458 ml 678 ml Tube Feeding 500 ml 563 ml 412 ml 358 ml 581 ml Tube Irrigant 100 ml 90 ml 100 ml 100 ml Output Urine Total 400 ml 3 ml Stool Total 2 ml 0 ml 0 ml 0 ml # Voids 3 4 2 0 # Bowel Movements 1 Result Diagram: 11/29/16 0416 11/29/16 041 Objective Remarks GENERAL: WBWN male, on Trach collar SKIN: Warm and dry. HEAD: Normocephalic. EYES: No scleral icterus. No injection or drainage. NECK: Supple, trachea midline. No JVD or lymphadenopathy. Trach collar CARDIOVASCULAR: Regular rate and rhythm without murmurs, gallops, or rubs. RESPIRATORY: Breath sounds equal bilaterally. No accessory muscle use. GASTROINTESTINAL: Abdomen soft, non-tender, nondistended. PEG tube in place MUSCULOSKELETAL: No cyanosis, or edema. BACK: Nontender without obvious deformity. No CVA tenderness. A/P Assessment and Plan RF, s/p Trach Intracranial bleed Hydrocephalous HTN C.diff positive PLAN: Cont Flagyl Trach collar Secretions decreased DC Plans underway. Renard Virgen MD November 30, 2016 20:28
[2016-11-30] MEDS: ENOXAPARIN SODIUM 40 MG/0.4 ML SYRINGE SQ SCH (21:05)
[2016-12-01] VITALS (10 sets, daily range): BP systolic 124–156; BP diastolic 70–98; PULSE 88–104; RESP 22–28; TEMP 98.1–99.5; O2SAT 95–100
[2016-12-01] MEDS: CHLORHEXIDINE GLUCONATE 2 % 1 PACK (2 CLOTHS) TOP SCH (04:00)
[2016-12-01] MEDS: LABETALOL HCL 100 MG TAB PO SCH ×3 (04:48→20:39)
[2016-12-01 05:00] LABS: HEMATOCRIT 30.1 % (39.0-51.0); HEMOGLOBIN 10.1 GM/DL (13.0-17.0); MEAN CELL VOLUME 86.9 FL (80.0-100.0); MEAN CORPUSCULAR HEMOGLOBIN 29.1 PG (27.0-34.0); MEAN CORPUSCULAR HGB CONC 33.5 % (32.0-36.0); MEAN PLATELET VOLUME 9.2 FL (7.0-11.0); PLATELET COUNT 294 TH/MM3 (150-450); RED BLOOD COUNT 3.46 MIL/MM3 (4.50-5.90); RED CELL DISTRIBUTION WIDTH 14.9 % (11.6-17.2); WHITE BLOOD COUNT 10.1 TH/MM3 (4.0-11.0)
[2016-12-01 05:27] LABS: BICARBONATE 30.6 MEQ/L (21.0-32.0); CALCIUM 8.9 MG/DL (8.5-10.1); CREATININE 0.83 MG/DL (0.60-1.30); MAGNESIUM 2.3 MG/DL (1.5-2.5)
[2016-12-01] MEDS: NYSTATIN 100,000 U/GM PWD 15 GM BTL TOPICAL SCH ×3 (09:00→18:00)
[2016-12-01] MEDS: ARTIFICIAL TEARS OPTH SOLN 15 ML BTL EACH EYE SCH ×3 (09:00→18:00)
[2016-12-01] MEDS: PRAVASTATIN SOD 40 MG TAB PO SCH (09:00)
[2016-12-01] MEDS: PANTOPRAZOLE SODIUM 40 MG VIAL IV SCH (09:02)
[2016-12-01] MEDS: LACTOBACILLUS ACIDOPHILUS TAB PO SCH ×2 (09:02→20:39)
[2016-12-01] MEDS: hydrALAZINE HCL 50 MG TAB PO SCH ×2 (09:03→20:39)
[2016-12-01] MEDS: QUEtiapine FUMARATE 25 MG TAB PO SCH ×3 (09:03→20:39)
[2016-12-01] MEDS: SODIUM CHLORIDE 1 GRAM TAB PO SCH ×2 (09:03→09:08)
[2016-12-01] MEDS: FLUDROCORTISONE ACETATE 0.1 MG TAB PO SCH ×2 (09:03→20:39)
[2016-12-01] MEDS: POTASSIUM CHLORIDE 25 MEQ EFFERVESCENT TAB NG SCH ×2 (09:03→20:40)
[2016-12-01] MEDS: amLODIPine BESYLATE 5 MG TAB PO SCH (09:03)
[2016-12-01] MEDS: SODIUM CHLORIDE 0.9% FLUSH 10 ML FLUSH IV FLUSH SCH (09:04)
--- NOTE | 2016-12-01 11:32 | HHI.PR ---
Subjective Remarks Patient in bed , he appears in nad. No feevr or chills. He is alsert and oriented. Denies any chest pain or sob. Follows commands. no more diarrhea, he is off flagyl. No sob, less secretions. No n/v/d/c. Objective Vitals Vital Signs Date Time Temp Pulse Resp B/P Pulse Ox O2 Delivery O2 Flow Rate FiO2 12/01/16 09:37 98 Trach Collar 5.00 28 12/01/16 08:00 92 12/01/16 08:00 98.6 92 22 156/70 100 12/01/16 07:00 99 Trach Collar 6.00 28 12/01/16 06:00 92 12/01/16 04:00 100 12/01/16 04:00 99.1 100 24 128/85 95 12/01/16 02:00 104 12/01/16 00:00 104 12/01/16 00:00 99.5 104 23 124/76 96 11/30/16 20:38 97 Trach Collar 6.00 28 11/30/16 20:00 99.1 114 23 147/98 96 11/30/16 20:00 114 11/30/16 19:00 96 Trach Collar 6.00 28 11/30/16 16:00 105 11/30/16 16:00 98.3 105 24 113/56 97 11/30/16 12:00 105 11/30/16 12:00 98.3 105 24 113/56 97 I/O 11/30/16 11/30/16 11/30/16 12/01/16 12/01/16 12/01/16 07:00 15:00 23:00 07:00 15:00 23:00 Intake Total 458 ml 681 ml 748 ml 693 ml Output Total 0 ml 3 ml 1 ml 0 ml Balance 458 ml 678 ml 747 ml 693 ml Tube Feeding 358 ml 581 ml 548 ml 493 ml Tube Irrigant 100 ml 100 ml 200 ml 200 ml Output Urine Total 3 ml Stool Total 0 ml 0 ml 1 ml 0 ml # Voids 2 0 2 3 Result Diagram: 12/01/16 0333 12/01/16 0333 Imaging Last Impressions Abdomen X-Ray 11/28/16 0000 Signed Impressions: Service Date/Time: Monday, November 28, 2016 16:00 - CONCLUSION: 1. No evidence of bowel obstruction, ileus or perforation. 2. Degenerative changes and scoliosis of the thoracolumbar spine. 3. Degenerative changes involving the hip joints bilaterally. Juan Worley MD Head CT 11/24/16 0000 Signed Impressions: Service Date/Time: October 22:29 - CONCLUSION: Patient is now shunted. Normal ventricular size. No bleed or other acute complication. Tim Hammonds MD Chest X-Ray 11/01/16 0600 Signed Impressions: Service Date/Time: Tuesday, November 01, 2016 04:37 - CONCLUSION: 1. No acute cardiopulmonary disease. Trevin De León MD Transcranial Doppler Study Complete 10/26/16 0700 Signed Impressions: Service Date/Time: Wednesday, October 26, 2016 08:20 - CONCLUSION: Minimal interval improvement with no evidence for vasospasm. Christian Song MD FACR Neck CTA 10/19/16 0000 Signed Impressions: Service Date/Time: Wednesday, October 19, 2016 14:19 - CONCLUSION: Negative for dissection or significant stenosis. Christian Song MD FACR Head CTA 10/19/16 0000 Signed Impressions: Service Date/Time: Wednesday, October 19, 2016 14:19 - CONCLUSION: 1. Interval development of significant vasospasm in the left MCA and SRI territories. 2. Mild vasospasm in the basilar artery.. Gume Mckeon MD Cerebral Arteriogram 10/19/16 0000 Signed Impressions: Service Date/Time: Wednesday, October 19, 2016 16:06 - CONCLUSION: 1. Vasospasm in the left MCA and SRI territories 2. Spasmolytic infusion, left internal carotid artery as above.. 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 Gume Mckeon MD Pelvis X-Ray 10/05/16 0110 Signed Impressions: Service Date/Time: Wednesday, October 05, 2016 01:22 - CONCLUSION: Unremarkable examination of the pelvis. Ruben Acuña Jr., MD Chest CT 10/05/16 0110 Signed Impressions: Service Date/Time: Wednesday, October 05, 2016 01:46 - CONCLUSION: 1. No acute intrathoracic abnormality. 2. Bibasilar atelectasis. 3. Cardiomegaly. 4. Prior granulomatous disease. Ruben Acuña Jr., MD Cervical Spine CT 10/05/16109 Signed Impressions: Service Date/Time: Wednesday, October 05, 2016 01:40 - CONCLUSION: 1. No fracture or dislocation. 2. Multilevel degenerative changes. Ruben Acuña Jr., MD Abdomen/Pelvis CT 10/05/16109 Signed Impressions: Service Date/Time: Wednesday, October 05, 2016 01:46 - CONCLUSION: 1. No acute trauma. 2. Rounded area of decreased density involving the pancreatic head. I cannot completely exclude pancreatic head mass. At some point MRI of the pancreas is suggested to further evaluate. 3. Focal area of poor enhancement involving the left kidney. This may relate to an area of parenchymal scarring. I cannot completely exclude a mass. This can be further assessed with MRI as well. Ruben Acuña Jr., MD Objective Remarks GENERAL: Middle-aged male lying in bed, with trach. Less agitated, following commands, appears in nad. SKIN: Dry. Oral thrush improved. HEAD: Normocephalic. NECK: Supple, trachea midline. Trach site clean, dry. CARDIOVASCULAR: Regular rate and rhythm. No JVD. RESPIRATORY: Trach patient. Breath sounds equal bilaterally. Clear, no wheezes or crackles. Good bilateral excursions. Comfortable. GASTROINTESTINAL: Abdomen soft, non-tender, nondistended. BS active. No guarding. EXTREMITIES: Nonfocal clubbing cyanosis or edema, well perfused. NEURO:Eys opened, EOMI. Follows commands in bilateral upper and lower extremities. 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 ICD Code: I60.8 Status: Acute (2) Hypertension ICD Code: I10 Status: Chronic (3) Major neurocognitive disorder due to vascular disease, without behavioral disturbance, severe ICD Code: F01.50 Status: Acute (4) Septic shock ICD Code: A41.9 Status: Resolved (5) Hydrocephalus ICD Code: G91.9 Status: Acute (6) Intracranial hemorrhage ICD Code: I62.9 Status: Acute (7) Major neurocognitive disorder as late effect of traumatic brain injury with behavioral disturbance ICD Code: S06.9X9S Status: Acute (8) Encephalopathy ICD Code: G93.40 Status: Acute (9) Sepsis ICD Code: A41.9 Status: Resolved (10) Pneumonia ICD Code: J18.9 Status: Acute (11) Protein-calorie malnutrition, mild ICD Code: E44.1 Status: Acute (12) Acute respiratory failure with hypoxia and hypercarbia ICD Code: J96.01 Status: Acute Assessment and Plan 51 yo M with aneurysmal SAH, s/p basilar artery coiling 10/05. S/p IA Verapamil and 10/19 for cerebral vasospasm. There is some improvement in encephalopathy , acute hypoxic respiratory failure on trach pulm following. . Resolved sepsis. Possible cerebral salt wasting. Was started on salt tabs, 3% saline, florinef, and NS . strict I/Os. TCDs per N/S. s/p Trach 10/23 and PEG 10/24. Had Enterobacter in the sputum. Finished ABX With hydrocephalus s/p shunt on 11/24/[address] Eaton. Viridans strep in CSF culture --> contaminant per [facility] and Dr Mace , patient is not having symptoms if infection, monitor if altered mental status, fevers or leukocytosis developed then will need repeat CSF cultures. Had C diff resolved post flayl , now off abx. Aneurysmal subarachnoid hemorrhage, occurred on 10/05/16: -Appreciate neurosurgery recommendations. Okay for Lovenox per neurosurgery. Continue Keppra for seizure prophylaxis. -Status post APPLICATION DESIGN ENGINEER shunt on 11/24/2016 + Streptococcus viridans in the CSF broth, media was negative. -Clinically patient is doing well. -Dr. Mace stated that CSF fluid was obtain as routine when he does have APPLICATION DESIGN ENGINEER shunt. -Dr. Mace stated most likely a contaminant recommends reconsult infectious disease. Consult placed. Discussed with Dr Servin ID also thinks is contaminant. Patient is not having symptoms if infection, monitor if altered mental status, fevers or leukocytosis developed then will need repeat CSF cultures. Projectile vomiting on 11/26/2016 with mild epigastric pain. Resolved. -Patient has been asymptomatic since then. KUB negative for any small bowel obstruction or ileus. -Patient is on a PPI. -Continue to monitor clinically. Encephalopathy: -Secondary to above. Mental status is improving slowly. Acute hypoxic, hypercarbic respiratory failure: -Tracheostomy 10/23/16. Continue supplemental oxygen. DuoNeb as needed, scheduled. Trach management per pulmonology. Septic shock: Resolved. Possible cerebral salt wasting: - Continue Florinef, sodium chloride tablets. Mild acute protein calorie malnutrition -Continue tube feedings. Monitor labs. Pneumonia: - Completed antibiotics. C. difficile colitis: -Continue Flagyl. Repeat C. difficile studies are negative. -Patient needs 1 more repeat in order to be off of isolation. Hyperglycemia of critical illness: - Improved. Hydrocephalus: -Repeat head CT unchanged. APPLICATION DESIGN ENGINEER shunt placement today. Hypokalemia -: Improved DVT prophylaxis: SCDs, YOUSIF hose, Lovenox. GI prophylaxis: Protonix. . Discharge Planning Patient stable to be transferred out of [facility] but no beds available. Pending SSI and medicaid for placement. Patient with CSF fluid with Viridans strep likely contaminant. Monitor for fever , leukocytosis, altered mental status and repeat CSF analysis if occurs. Problem Qualifiers (1) Hypertension: Qualified Code: I10 - Essential hypertension Adele Cooper MD Dec 01, 2016 11:32
--- NOTE | 2016-12-01 20:22 | HHI.PR ---
Subjective Remarks 51 YOWM with TBI,RF,Trach On trach collar Mod amount of trach secretions More awake, strong cough No Fever Objective Vital Signs Vital Signs Date Time Temp Pulse Resp B/P Pulse Ox O2 Delivery O2 Flow Rate FiO2 12/01/16 16:00 98.1 102 28 138/74 97 12/01/16 16:00 102 12/01/16 12:00 98.1 88 23 131/77 95 12/01/16 12:00 88 12/01/16 09:37 98 Trach Collar 5.00 28 12/01/16 08:00 92 12/01/16 08:00 98.6 92 22 156/70 100 12/01/16 07:00 99 Trach Collar 6.00 28 12/01/16 06:00 92 12/01/16 04:00 100 12/01/16 04:00 99.1 100 24 128/85 95 12/01/16 02:00 104 12/01/16 00:00 104 12/01/16 00:00 99.5 104 23 124/76 96 11/30/16 20:38 97 Trach Collar 6.00 28 I/O 11/30/16 11/30/16 11/30/16 12/01/16 12/01/16 12/01/16 07:00 15:00 23:00 07:00 15:00 23:00 Intake Total 458 ml 681 ml 748 ml 693 ml 626 ml Output Total 0 ml 3 ml 1 ml 0 ml 0 ml Balance 458 ml 678 ml 747 ml 693 ml 626 ml Tube Feeding 358 ml 581 ml 548 ml 493 ml 476 ml Tube Irrigant 100 ml 100 ml 200 ml 200 ml 150 ml Output Urine Total 3 ml Stool Total 0 ml 0 ml 1 ml 0 ml 0 ml # Voids 2 0 2 3 3 Result Diagram: 12/01/16 0333 12/01/16 0333 Objective Remarks GENERAL: WBWN male, on Trach collar SKIN: Warm and dry. HEAD: Normocephalic. EYES: No scleral icterus. No injection or drainage. NECK: Supple, trachea midline. No JVD or lymphadenopathy. Trach collar CARDIOVASCULAR: Regular rate and rhythm without murmurs, gallops, or rubs. RESPIRATORY: Breath sounds equal bilaterally. No accessory muscle use. GASTROINTESTINAL: Abdomen soft, non-tender, nondistended. PEG tube in place MUSCULOSKELETAL: No cyanosis, or edema. BACK: Nontender without obvious deformity. No CVA tenderness. A/P Assessment and Plan RF, s/p Trach Intracranial bleed Hydrocephalous HTN C.diff positive PLAN: Cont Flagyl Trach collar Secretions decreased Will try PMV Renard Virgen MD Dec 01, 2016 20:22
[2016-12-01] MEDS: ENOXAPARIN SODIUM 40 MG/0.4 ML SYRINGE SQ SCH (20:39)
[2016-12-02] VITALS (8 sets, daily range): BP systolic 123–145; BP diastolic 72–87; PULSE 86–106; RESP 19–24; TEMP 98.3–99.3; O2SAT 95–99
[2016-12-02] MEDS: CHLORHEXIDINE GLUCONATE 2 % 1 PACK (2 CLOTHS) TOP SCH (03:55)
[2016-12-02] MEDS: LABETALOL HCL 100 MG TAB PO SCH ×3 (03:55→20:00)
[2016-12-02] MEDS: LACTOBACILLUS ACIDOPHILUS TAB PO SCH ×2 (08:02→20:00)
[2016-12-02] MEDS: POTASSIUM CHLORIDE 25 MEQ EFFERVESCENT TAB NG SCH ×2 (08:03→20:00)
[2016-12-02] MEDS: FLUDROCORTISONE ACETATE 0.1 MG TAB PO SCH ×2 (08:03→20:00)
[2016-12-02] MEDS: hydrALAZINE HCL 50 MG TAB PO SCH ×2 (08:03→20:00)
[2016-12-02] MEDS: amLODIPine BESYLATE 5 MG TAB PO SCH (08:03)
[2016-12-02] MEDS: PRAVASTATIN SOD 40 MG TAB PO SCH (08:03)
[2016-12-02] MEDS: SODIUM CHLORIDE 0.9% FLUSH 10 ML FLUSH IV FLUSH SCH (08:04)
[2016-12-02] MEDS: ARTIFICIAL TEARS OPTH SOLN 15 ML BTL EACH EYE SCH ×3 (08:04→18:28)
[2016-12-02] MEDS: PANTOPRAZOLE SODIUM 40 MG VIAL IV SCH (08:04)
[2016-12-02] MEDS: NYSTATIN 100,000 U/GM PWD 15 GM BTL TOPICAL SCH ×3 (08:04→18:28)
[2016-12-02] MEDS: QUEtiapine FUMARATE 25 MG TAB PO SCH ×3 (08:04→20:00)
--- NOTE | 2016-12-02 09:31 | HHI.NSPN ---
(Meir Sánchez) History Chief Complaint: Headache (Meir Sánchez) Interval History 11/19: Patient wake this morning and fidgeting in bed. Nursing reports that during the night the patient was very agitated and pulling at his lines and remains restrained due to this. He receives Seroquel at 0900 and 1200 daily. He does follow commands. 11/20: Patient asleep but opens eyes to verbal stimuli. He does follow commands although he is fidgeting in bed and attempting to get out by himself. 11/21: Patient awake & alert in cardiac chair. He does verbalise and denies any complaint. He is following commands. Nursing reported that he stood 3 times this morning with Therapy. He went for a repeat CT brain this morning which demonstrated stable ventriculomegaly. 11/22: The patient is asleep in bed. He does not open his eyes but does attempt to verbalise when seen. He is following commands. 11/23: The patient is awake & alert. He follows commands and attempts to verbalise. 11/24: The patient is awake. He is restless in the bed at times. He does follow commands and is able to vocalise some. 11/25: The patient is awake & alert, fidgeting in bed as usual. He does follow commands and shakes his head no when asked if he has a headache. He went for a CABINET MOUNTER shunt yesterday afternoon. 11/30: The patient is awake & alert. He does follow commands. He complains of a headache and pain to the trach. 12/02: The patient was seen to be alert & impulsive prior to being examined this morning. He kept trying to get up out of bed even though there was a sitter with him. When seen the patient did state that he had a headache but no nausea. (Meir Sánchez) System Review Comments Limited ROS due to patient being drowsy, he does endorse a headache but no nausea. (Meir Sánchez) Exam Results Vital Signs Date Time Temp Pulse Resp B/P Pulse Ox O2 Delivery O2 Flow Rate FiO2 6/2/17 08:00 98.6 94 24 134/75 99 12/02/16 07:00 Trach Collar 6.00 28 Intake and Output 12/01/16 12/01/16 12/02/16 08:00 16:00 00:00 Intake Total 693 ml 626 ml 576 ml Output Total 0 ml 0 ml Balance 693 ml 626 ml 576 ml (Meir Sánchez) Physical Examination HEENT: Right parietal surgical incisions well-approximated with steri-strips, no evident drainage, erythema or streaking evident. Neck: Active ROM, no nuchal rigidity, no JVD, trached. Respiratory: CTAB w/o W/R/R, equal excursion, non-laboured, trached & on trach collar. Cardiovascular: S1S2 w/RRR w/o M/G/R, radial & pedal pulses 2+ bilaterally, cap refill < 2 sec. Monitor is sinus rhythm w/o any ectopy noted Gastrointestinal: Abdomen soft, nontender, positive bowel sounds, PEG tube w/ enteral feeds. RUQ surgical incision well-approximated with skin adhesive, no evident drainage, erythema or streaking evident. Neurological: Awake & alert Does mouth a few words in response to questions with some verbalisation Follows simple commands Moving all extremities Good muscle strength Sensation grossly intact to light touch to all extremities (Meir Sánchez ) Medical Decision Making Impression and Plan Impression: 1. 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 Hydrocephalus Postoperative CT scan reveals decreasing size of ventricles. Neurologic exam is stable following CABINET MOUNTER shunt placement POD #8 () s/p: CABINET MOUNTER shunt placement Plan: Cognitive/speech therapy eval & tx Activity OOB to cardiac chair Continue PT & OT Continue abx per Surgical Nuclear Licensing Engineer Howie for Ciaranox from NSGY standpoint Ulcer prophylaxis Keep SBP between 120-160 mm Hg He is stable for transfer from the intensive surgical care unit from a neurosurgical standpoint. We will follow him intermittently in the hospital (Meir Sánchez) Attending Statement The exam, history, and the medical decision-making described in the above note were completed with the assistance of the mid-level provider. I reviewed and agree with the findings presented. I attest that I had a [id number] encounter with the patient on the same day, and personally performed and documented my assessment and findings in the medical record. Incisions dry Remains confused Stable for rehab (Gino Mace MD) Meir Sánchez Dec 02, 2016 09:31 Gino Mace MD Jan 03, 2017 17:04
--- NOTE | 2016-12-02 09:31 | HHI.NSPN ---
(eMir Sánchez) History Chief Complaint: Headache (Meir Sánchez) Interval History 11/19: Patient wake this morning and fidgeting in bed. Nursing reports that during the night the patient was very agitated and pulling at his lines and remains restrained due to this. He receives Seroquel at 0900 and 1200 daily. He does follow commands. 11/20: Patient asleep but opens eyes to verbal stimuli. He does follow commands although he is fidgeting in bed and attempting to get out by himself. 11/21: Patient awake & alert in cardiac chair. He does verbalise and denies any complaint. He is following commands. Nursing reported that he stood 3 times this morning with Therapy. He went for a repeat CT brain this morning which demonstrated stable ventriculomegaly. 11/22: The patient is asleep in bed. He does not open his eyes but does attempt to verbalise when seen. He is following commands. 11/23: The patient is awake & alert. He follows commands and attempts to verbalise. 11/24: The patient is awake. He is restless in the bed at times. He does follow commands and is able to vocalise some. 11/25: The patient is awake & alert, fidgeting in bed as usual. He does follow commands and shakes his head no when asked if he has a headache. He went for a TRIBAL COUNCIL MEMBER shunt yesterday afternoon. 11/30: The patient is awake & alert. He does follow commands. He complains of a headache and pain to the trach. 12/02: The patient was seen to be alert & impulsive prior to being examined this morning. He kept trying to get up out of bed even though there was a sitter with him. When seen the patient did state that he had a headache but no nausea. (Meir Sánchez) System Review Comments Limited ROS due to patient being drowsy, he does endorse a headache but no nausea. (Meir Sánchez) Exam Results Vital Signs Date Time Temp Pulse Resp B/P Pulse Ox O2 Delivery O2 Flow Rate FiO2 6/2/17 08:00 98.6 94 24 134/75 99 12/02/16 07:00 Trach Collar 6.00 28 Intake and Output 12/01/16 12/01/16 12/02/16 08:00 16:00 00:00 Intake Total 693 ml 626 ml 576 ml Output Total 0 ml 0 ml Balance 693 ml 626 ml 576 ml (Mier Sánchez) Physical Examination HEENT: Right parietal surgical incisions well-approximated with steri-strips, no evident drainage, erythema or streaking evident. Neck: Active ROM, no nuchal rigidity, no JVD, trached. Respiratory: CTAB w/o W/R/R, equal excursion, non-laboured, trached & on trach collar. Cardiovascular: S1S2 w/RRR w/o M/G/R, radial & pedal pulses 2+ bilaterally, cap refill < 2 sec. Monitor is sinus rhythm w/o any ectopy noted Gastrointestinal: Abdomen soft, nontender, positive bowel sounds, PEG tube w/ enteral feeds. RUQ surgical incision well-approximated with skin adhesive, no evident drainage, erythema or streaking evident. Neurological: Awake & alert Does mouth a few words in response to questions with some verbalisation Follows simple commands Moving all extremities Good muscle strength Sensation grossly intact to light touch to all extremities (Meir Sánchez ) Medical Decision Making Impression and Plan Impression: 1. 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 Hydrocephalus Postoperative CT scan reveals decreasing size of ventricles. Neurologic exam is stable following TRIBAL COUNCIL MEMBER shunt placement POD #8 () s/p: TRIBAL COUNCIL MEMBER shunt placement Plan: Cognitive/speech therapy eval & tx Activity OOB to cardiac chair Continue PT & OT Continue abx per Surgical Physiatrist Howie for Ciaranox from NSGY standpoint Ulcer prophylaxis Keep SBP between 120-160 mm Hg He is stable for transfer from the intensive surgical care unit from a neurosurgical standpoint. We will follow him intermittently in the hospital (Meir Sánchez) Attending Statement The exam, history, and the medical decision-making described in the above note were completed with the assistance of the mid-level provider. I reviewed and agree with the findings presented. I attest that I had a [id number] encounter with the patient on the same day, and personally performed and documented my assessment and findings in the medical record. Incisions dry Remains confused Stable for rehab (Gino Mace MD) Meir Sánchez Dec 02, 2016 09:31 Gino Mace MD Jan 03, 2017 17:04
--- NOTE | 2016-12-02 09:31 | HHI.NSPN ---
(Meir Sánchez) History Chief Complaint: Headache (Meir Sánchez) Interval History 11/19: Patient wake this morning and fidgeting in bed. Nursing reports that during the night the patient was very agitated and pulling at his lines and remains restrained due to this. He receives Seroquel at 0900 and 1200 daily. He does follow commands. 11/20: Patient asleep but opens eyes to verbal stimuli. He does follow commands although he is fidgeting in bed and attempting to get out by himself. 11/21: Patient awake & alert in cardiac chair. He does verbalise and denies any complaint. He is following commands. Nursing reported that he stood 3 times this morning with Therapy. He went for a repeat CT brain this morning which demonstrated stable ventriculomegaly. 11/22: The patient is asleep in bed. He does not open his eyes but does attempt to verbalise when seen. He is following commands. 11/23: The patient is awake & alert. He follows commands and attempts to verbalise. 11/24: The patient is awake. He is restless in the bed at times. He does follow commands and is able to vocalise some. 11/25: The patient is awake & alert, fidgeting in bed as usual. He does follow commands and shakes his head no when asked if he has a headache. He went for a SLEEP SCIENTIST shunt yesterday afternoon. 11/30: The patient is awake & alert. He does follow commands. He complains of a headache and pain to the trach. 12/02: The patient was seen to be alert & impulsive prior to being examined this morning. He kept trying to get up out of bed even though there was a sitter with him. When seen the patient did state that he had a headache but no nausea. (Meir Sánchez) System Review Comments Limited ROS due to patient being drowsy, he does endorse a headache but no nausea. (Meir Sánchez) Exam Results Vital Signs Date Time Temp Pulse Resp B/P Pulse Ox O2 Delivery O2 Flow Rate FiO2 6/2/17 08:00 98.6 94 24 134/75 99 12/02/16 07:00 Trach Collar 6.00 28 Intake and Output 12/01/16 12/01/16 12/02/16 08:00 16:00 00:00 Intake Total 693 ml 626 ml 576 ml Output Total 0 ml 0 ml Balance 693 ml 626 ml 576 ml (Meir Sánchez) Physical Examination HEENT: Right parietal surgical incisions well-approximated with steri-strips, no evident drainage, erythema or streaking evident. Neck: Active ROM, no nuchal rigidity, no JVD, trached. Respiratory: CTAB w/o W/R/R, equal excursion, non-laboured, trached & on trach collar. Cardiovascular: S1S2 w/RRR w/o M/G/R, radial & pedal pulses 2+ bilaterally, cap refill < 2 sec. Monitor is sinus rhythm w/o any ectopy noted Gastrointestinal: Abdomen soft, nontender, positive bowel sounds, PEG tube w/ enteral feeds. RUQ surgical incision well-approximated with skin adhesive, no evident drainage, erythema or streaking evident. Neurological: Awake & alert Does mouth a few words in response to questions with some verbalisation Follows simple commands Moving all extremities Good muscle strength Sensation grossly intact to light touch to all extremities (Meir Sánchez ) Medical Decision Making Impression and Plan Impression: 1. 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 Hydrocephalus Postoperative CT scan reveals decreasing size of ventricles. Neurologic exam is stable following SLEEP SCIENTIST shunt placement POD #8 () s/p: SLEEP SCIENTIST shunt placement Plan: Cognitive/speech therapy eval & tx Activity OOB to cardiac chair Continue PT & OT Continue abx per Surgical Backend Python Developer Howie for Ciaranox from NSGY standpoint Ulcer prophylaxis Keep SBP between 120-160 mm Hg He is stable for transfer from the intensive surgical care unit from a neurosurgical standpoint. We will follow him intermittently in the hospital (Meir Sánchez) Attending Statement The exam, history, and the medical decision-making described in the above note were completed with the assistance of the mid-level provider. I reviewed and agree with the findings presented. I attest that I had a [id number] encounter with the patient on the same day, and personally performed and documented my assessment and findings in the medical record. Incisions dry Remains confused Stable for rehab (Gino Mace MD) Meir Sánchez Dec 02, 2016 09:31 Gino Mace MD Jan 03, 2017 17:04
--- NOTE | 2016-12-02 14:00 | HHI.PR ---
Subjective Remarks Seen earlier in the morning. He seems sleepy. No fever or chills. No n/v/d/c. Objective Vitals Vital Signs Date Time Temp Pulse Resp B/P Pulse Ox O2 Delivery O2 Flow Rate FiO2 12/02/16 12:09 97 21 12/02/16 12:00 99.3 94 20 124/76 97 12/02/16 12:00 94 12/02/16 08:00 98.6 94 24 134/75 99 12/02/16 08:00 94 12/02/16 07:00 99 Trach Collar 6.00 28 12/02/16 04:00 97 12/02/16 04:00 98.4 97 20 138/87 95 12/02/16 00:00 106 12/02/16 00:00 98.3 106 20 123/72 96 12/01/16 22:22 98 Trach Collar 28 12/01/16 20:00 98 Trach Collar 6.00 28 12/01/16 20:00 98 12/01/16 20:00 98.6 98 22 143/98 98 12/01/16 16:00 98.1 102 28 138/74 97 12/01/16 16:00 102 I/O 12/01/16 12/01/16 12/01/16 12/02/16 12/02/16 12/02/16 07:00 15:00 23:00 07:00 15:00 23:00 Intake Total 693 ml 626 ml 576 ml 534 ml Output Total 0 ml 0 ml Balance 693 ml 626 ml 576 ml 534 ml Tube Feeding 493 ml 476 ml 376 ml 434 ml Tube Irrigant 200 ml 150 ml 200 ml 100 ml Stool Total 0 ml 0 ml # Voids 3 3 1 3 # Bowel Movements 0 1 Result Diagram: 12/01/16 0333 12/01/16 0333 Imaging Last Impressions Abdomen X-Ray 11/28/16 0000 Signed Impressions: Service Date/Time: Monday, November 28, 2016 16:00 - CONCLUSION: 1. No evidence of bowel obstruction, ileus or perforation. 2. Degenerative changes and scoliosis of the thoracolumbar spine. 3. Degenerative changes involving the hip joints bilaterally. Juan Worley MD Head CT 11/24/16 0000 Signed Impressions: Service Date/Time: October 22:29 - CONCLUSION: Patient is now shunted. Normal ventricular size. No bleed or other acute complication. Tim Hammonds MD Chest X-Ray 11/01/16 0600 Signed Impressions: Service Date/Time: Tuesday, November 01, 2016 04:37 - CONCLUSION: 1. No acute cardiopulmonary disease. Trevin De León MD Transcranial Doppler Study Complete 10/26/16 0700 Signed Impressions: Service Date/Time: Wednesday, October 26, 2016 08:20 - CONCLUSION: Minimal interval improvement with no evidence for vasospasm. Christian Song MD FACR Neck CTA 10/19/16 0000 Signed Impressions: Service Date/Time: Wednesday, October 19, 2016 14:19 - CONCLUSION: Negative for dissection or significant stenosis. Christian Song MD FACR Head CTA 10/19/16 0000 Signed Impressions: Service Date/Time: Wednesday, October 19, 2016 14:19 - CONCLUSION: 1. Interval development of significant vasospasm in the left MCA and SRI territories. 2. Mild vasospasm in the basilar artery.. Gume Mckeon MD Cerebral Arteriogram 10/19/16 0000 Signed Impressions: Service Date/Time: Wednesday, October 19, 2016 16:06 - CONCLUSION: 1. Vasospasm in the left MCA and SRI territories 2. Spasmolytic infusion, left internal carotid artery as above.. 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 Gume Mckeon MD Pelvis X-Ray 10/05/16109 Signed Impressions: Service Date/Time: Wednesday, October 05, 2016 01:22 - CONCLUSION: Unremarkable examination of the pelvis. Ruben Acuña Jr., MD Chest CT 10/05/16109 Signed Impressions: Service Date/Time: Wednesday, October 05, 2016 01:46 - CONCLUSION: 1. No acute intrathoracic abnormality. 2. Bibasilar atelectasis. 3. Cardiomegaly. 4. Prior granulomatous disease. Ruben Acuña Jr., MD Cervical Spine CT 10/05/16109 Signed Impressions: Service Date/Time: Wednesday, October 05, 2016 01:40 - CONCLUSION: 1. No fracture or dislocation. 2. Multilevel degenerative changes. Ruben Acuña Jr., MD Abdomen/Pelvis CT 10/05/16109 Signed Impressions: Service Date/Time: Wednesday, October 05, 2016 01:46 - CONCLUSION: 1. No acute trauma. 2. Rounded area of decreased density involving the pancreatic head. I cannot completely exclude pancreatic head mass. At some point MRI of the pancreas is suggested to further evaluate. 3. Focal area of poor enhancement involving the left kidney. This may relate to an area of parenchymal scarring. I cannot completely exclude a mass. This can be further assessed with MRI as well. Ruben Acuña Jr., MD Objective Remarks GENERAL: Middle-aged male lying in bed, with trach. Less agitated, following commands, appears in nad. SKIN: Dry. Oral thrush improved. HEAD: Normocephalic. NECK: Supple, trachea midline. Trach site clean, dry. CARDIOVASCULAR: Regular rate and rhythm. No JVD. RESPIRATORY: Trach patient. Breath sounds equal bilaterally. Clear, no wheezes or crackles. Good bilateral excursions. Comfortable. GASTROINTESTINAL: Abdomen soft, non-tender, nondistended. BS active. No guarding. EXTREMITIES: Nonfocal clubbing cyanosis or edema, well perfused. NEURO:Eys opened, EOMI. Follows commands in bilateral upper and lower extremities. 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 ICD Code: I60.8 Status: Acute (2) Hypertension ICD Code: I10 Status: Chronic (3) Major neurocognitive disorder due to vascular disease, without behavioral disturbance, severe ICD Code: F01.50 Status: Acute (4) Septic shock ICD Code: A41.9 Status: Resolved (5) Hydrocephalus ICD Code: G91.9 Status: Acute (6) Intracranial hemorrhage ICD Code: I62.9 Status: Acute (7) Major neurocognitive disorder as late effect of traumatic brain injury with behavioral disturbance ICD Code: S06.9X9S Status: Acute (8) Encephalopathy ICD Code: G93.40 Status: Acute (9) Sepsis ICD Code: A41.9 Status: Resolved (10) Pneumonia ICD Code: J18.9 Status: Acute (11) Protein-calorie malnutrition, mild ICD Code: E44.1 Status: Acute (12) Acute respiratory failure with hypoxia and hypercarbia ICD Code: J96.01 Status: Acute Assessment and Plan 51 yo M with aneurysmal SAH, s/p basilar artery coiling 10/05. S/p IA Verapamil and 10/19 for cerebral vasospasm. There is some improvement in encephalopathy , acute hypoxic respiratory failure on trach pulm following. . Resolved sepsis. Possible cerebral salt wasting. Was started on salt tabs, 3% saline, florinef, and NS . strict I/Os. TCDs per N/S. s/p Trach 10/23 and PEG 10/24. Had Enterobacter in the sputum. Finished ABX With hydrocephalus s/p shunt on 11/24/[address] Eaton. Viridans strep in CSF culture --> contaminant per ID and Dr Mace , patient is not having symptoms if infection, monitor if altered mental status, fevers or leukocytosis developed then will need repeat CSF cultures. Had C diff resolved post flayl , now off abx. Aneurysmal subarachnoid hemorrhage, occurred on 10/05/16: -Appreciate neurosurgery recommendations. Okay for Lovenox per neurosurgery. Continue Keppra for seizure prophylaxis. -Status post [employer] shunt on 11/24/2016 + Streptococcus viridans in the CSF broth, media was negative. -Clinically patient is doing well. -Dr. Mace stated that CSF fluid was obtain as routine when he does have [employer] shunt. -Dr. Mace stated most likely a contaminant recommends reconsult infectious disease. Consult placed. Discussed with Dr Servin ID also thinks is contaminant. Patient is not having symptoms if infection, monitor if altered mental status, fevers or leukocytosis developed then will need repeat CSF cultures. Projectile vomiting on 11/26/2016 with mild epigastric pain. Resolved. -Patient has been asymptomatic since then. KUB negative for any small bowel obstruction or ileus. -Patient is on a PPI. -Continue to monitor clinically. Encephalopathy: -Secondary to above. Mental status is improving slowly. Acute hypoxic, hypercarbic respiratory failure: -Tracheostomy 10/23/16. Continue supplemental oxygen. DuoNeb as needed, scheduled. Trach management per pulmonology. Septic shock: Resolved. Possible cerebral salt wasting: - Continue Florinef, sodium chloride tablets. Mild acute protein calorie malnutrition -Continue tube feedings. Monitor labs. Pneumonia: - Completed antibiotics. C. difficile colitis: -Continue Flagyl. Repeat C. difficile studies are negative. -Patient needs 1 more repeat in order to be off of isolation. Hyperglycemia of critical illness: - Improved. Hydrocephalus: -Repeat head CT unchanged. [employer] shunt placement today. Hypokalemia -: Improved DVT prophylaxis: SCDs, YOUSIF han, Lovenox. GI prophylaxis: Protonix. . Discharge Planning Patient stable to be transferred out of [facility] but no beds available. Pending SSI and medicaid for placement. Patient with CSF fluid with Viridans strep likely contaminant. Monitor for fever , leukocytosis, altered mental status and repeat CSF analysis if occurs. Problem Qualifiers (1) Hypertension: Qualified Code: I10 - Essential hypertension Adele Cooper MD Dec 02, 2016 13:59
--- NOTE | 2016-12-02 17:10 | HHI.IDPN ---
Subjective Subjective Remarks Chart reviewed is a 51 y/o CM with traumatic brain ijury 2 mos ago sp [employer] shunt placement on 11/24 has NO WBC'S, NO ORGANISMS on G stain; CSF CULTURE Final has NO GROWTH ON ORIGINAL SOLID MEDIA. + GROWTH VIRIDANS STREPTOCOCCUS GRP FROM BROTH ONLY Fluid was obtained as a part of procedural protocol, Dr.A.Crossman jarrett Mace - there were no clinical concerns for infx prior to obtaining the specimen Pt chart was reviewed, no fever, no leukocytosis doc'd Stable neurological changes He also was diagnosed with C.diff and is on flagyl x 3 wks He is afebrile WBC are normal Antibiotics flagyl - started on 11/09 Lines Line sites with no e.o infection Past Medical History reviewed Allergies: Coded Allergies: Penicillin (Verified Allergy, Unknown, 10/06/16) Sulfa (Verified Allergy, Unknown, 10/06/16) Objective . Vital Signs Date Time Temp Pulse Resp B/P Pulse Ox O2 Delivery O2 Flow Rate FiO2 12/02/16 16:00 86 12/02/16 12:09 97 21 12/02/16 12:00 99.3 94 20 124/76 97 12/02/16 12:00 94 12/02/16 08:00 98.6 94 24 134/75 99 12/02/16 08:00 94 12/02/16 07:00 99 Trach Collar 6.00 28 12/02/16 04:00 97 12/02/16 04:00 98.4 97 20 138/87 95 12/02/16 00:00 106 12/02/16 00:00 98.3 106 20 123/72 96 12/01/16 22:22 98 Trach Collar 28 12/01/16 20:00 98 Trach Collar 6.00 28 12/01/16 20:00 98 12/01/16 20:00 98.6 98 22 143/98 98 12/01/16 12/01/16 12/02/16 15:00 23:00 07:00 Intake Total 626 ml 576 ml 534 ml Output Total 0 ml Balance 626 ml 576 ml 534 ml Tube Feeding 476 ml 376 ml 434 ml Tube Irrigant 150 ml 200 ml 100 ml Stool Total 0 ml # Voids 3 1 3 # Bowel Movements 0 1 . Laboratory Tests Test 12/01/16 03:33 White Blood Count 10.1 TH/MM3 Red Blood Count 3.46 MIL/MM3 Hemoglobin 10.1 GM/DL Hematocrit 30.1 % Mean Corpuscular Volume 86.9 FL Mean Corpuscular Hemoglobin 29.1 PG Mean Corpuscular Hemoglobin 33.5 % Concent Red Cell Distribution Width 14.9 % Platelet Count 294 TH/MM3 Mean Platelet Volume 9.2 FL Laboratory Tests Test 12/01/16 03:33 Sodium Level 146 MEQ/L Potassium Level 3.5 MEQ/L Chloride Level 108 MEQ/L Carbon Dioxide Level 30.6 MEQ/L Anion Gap 7 MEQ/L Blood Urea Nitrogen 16 MG/DL Creatinine 0.83 MG/DL Estimat Glomerular Filtration 98 ML/MIN Rate Random Glucose 97 MG/DL Calcium Level 8.9 MG/DL Magnesium Level 2.3 MG/DL Imaging Last Impressions Abdomen X-Ray 11/28/16 0000 Signed Impressions: Service Date/Time: Monday, November 28, 2016 16:00 - CONCLUSION: 1. No evidence of bowel obstruction, ileus or perforation. 2. Degenerative changes and scoliosis of the thoracolumbar spine. 3. Degenerative changes involving the hip joints bilaterally. Juan Worley MD Head CT 11/24/16 0000 Signed Impressions: Service Date/Time: October 22:29 - CONCLUSION: Patient is now shunted. Normal ventricular size. No bleed or other acute complication. Tim Hammonds MD Chest X-Ray 11/01/16 0600 Signed Impressions: Service Date/Time: Tuesday, November 01, 2016 04:37 - CONCLUSION: 1. No acute cardiopulmonary disease. Trevin De León MD Transcranial Doppler Study Complete 10/26/16 0700 Signed Impressions: Service Date/Time: Wednesday, October 26, 2016 08:20 - CONCLUSION: Minimal interval improvement with no evidence for vasospasm. Christian Song MD FACR Neck CTA 10/19/16 0000 Signed Impressions: Service Date/Time: Wednesday, October 19, 2016 14:19 - CONCLUSION: Negative for dissection or significant stenosis. Christian Song MD FACR Head CTA 10/19/16 0000 Signed Impressions: Service Date/Time: Wednesday, October 19, 2016 14:19 - CONCLUSION: 1. Interval development of significant vasospasm in the left MCA and SRI territories. 2. Mild vasospasm in the basilar artery.. Gume Mckeon MD Cerebral Arteriogram 10/19/16 0000 Signed Impressions: Service Date/Time: Wednesday, October 19, 2016 16:06 - CONCLUSION: 1. Vasospasm in the left MCA and SRI territories 2. Spasmolytic infusion, left internal carotid artery as above.. 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 Gume Mckeon MD Pelvis X-Ray 10/05/16109 Signed Impressions: Service Date/Time: Wednesday, October 05, 2016 01:22 - CONCLUSION: Unremarkable examination of the pelvis. Ruben Acuña Jr., MD Chest CT 10/05/16109 Signed Impressions: Service Date/Time: Wednesday, October 05, 2016 01:46 - CONCLUSION: 1. No acute intrathoracic abnormality. 2. Bibasilar atelectasis. 3. Cardiomegaly. 4. Prior granulomatous disease. Ruben Acuña Jr., MD Cervical Spine CT 10/05/16109 Signed Impressions: Service Date/Time: Wednesday, October 05, 2016 01:40 - CONCLUSION: 1. No fracture or dislocation. 2. Multilevel degenerative changes. Ruben Acuña Jr., MD Abdomen/Pelvis CT 10/05/16109 Signed Impressions: Service Date/Time: Wednesday, October 05, 2016 01:46 - CONCLUSION: 1. No acute trauma. 2. Rounded area of decreased density involving the pancreatic head. I cannot completely exclude pancreatic head mass. At some point MRI of the pancreas is suggested to further evaluate. 3. Focal area of poor enhancement involving the left kidney. This may relate to an area of parenchymal scarring. I cannot completely exclude a mass. This can be further assessed with MRI as well. Ruben Acuña Jr., MD Physical Exam GENERAL: This is a well-nourished, well-developed patient, in no apparent distress. SKIN: no rash HEAD: R parietal incision clean ands dry reed in, no drainage EYES: Pupils equal round and reactive. Extraocular motions intact. No scleral icterus. No injection or drainage. ENT: oral mucosa moist NECK: Trachea midline. Supple, nontender, no meningeal signs. CARDIOVASCULAR: RRR RESPIRATORY: Clear to auscultation. Breath sounds equal bilaterally. No wheezes , rales, or rhonchi. GASTROINTESTINAL: Abdomen soft, non-tender, nondistended. No hepato-splenomegaly , or palpable masses. No guarding. Incision druy and clean PEG in place MUSCULOSKELETAL: Extremities without clubbing, cyanosis, or edema. NEUROLOGICAL: Awake and alert. moves all 4 extremities confused, oriented x 1 only, follows commands intermittently Psych: calm IV line sites with no e.o infection. Assessment & Plan Remarks TBI Sp [employer] shunt placement CSF clx positive for bacteria cw contamination -Viridans strep on broth only in CSF clx - no clinical s/o - C.diff not 027 sp 3 wks of flagyl - dc flagyl Observe off antibiotics as clinically doing well and will result in recurrent Cdiff. Will sign off please call back if any change in clinical condition or questions. Ivette Yoo MD Dec 02, 2016 17:10
--- NOTE | 2016-12-02 18:48 | HHI.PR ---
Subjective Remarks 51 YOWM with TBI,RF,Trach On trach collar Mod amount of trach secretions More awake, strong cough No Fever Trach capped Objective Vital Signs Vital Signs Date Time Temp Pulse Resp B/P Pulse Ox O2 Delivery O2 Flow Rate FiO2 12/02/16 16:00 98.6 88 20 124/72 96 12/02/16 16:00 86 12/02/16 12:09 97 21 12/02/16 12:00 99.3 94 20 124/76 97 12/02/16 12:00 94 12/02/16 08:00 98.6 94 24 134/75 99 12/02/16 08:00 94 12/02/16 07:00 99 Trach Collar 6.00 28 12/02/16 04:00 97 12/02/16 04:00 98.4 97 20 138/87 95 12/02/16 00:00 106 12/02/16 00:00 98.3 106 20 123/72 96 12/01/16 22:22 98 Trach Collar 28 12/01/16 20:00 98 Trach Collar 6.00 28 12/01/16 20:00 98 12/01/16 20:00 98.6 98 22 143/98 98 I/O 12/01/16 12/01/16 12/01/16 12/02/16 12/02/16 12/02/16 07:00 15:00 23:00 07:00 15:00 23:00 Intake Total 693 ml 626 ml 576 ml 534 ml 554 ml Output Total 0 ml 0 ml Balance 693 ml 626 ml 576 ml 534 ml 554 ml Tube Feeding 493 ml 476 ml 376 ml 434 ml 494 ml Tube Irrigant 200 ml 150 ml 200 ml 100 ml 60 ml Stool Total 0 ml 0 ml # Voids 3 3 1 3 1 # Bowel Movements 0 1 1 Result Diagram: 12/01/16 0333 12/01/16 033 Objective Remarks GENERAL: WBWN male, on Trach collar SKIN: Warm and dry. HEAD: Normocephalic. EYES: No scleral icterus. No injection or drainage. NECK: Supple, trachea midline. No JVD or lymphadenopathy. Trach collar CARDIOVASCULAR: Regular rate and rhythm without murmurs, gallops, or rubs. RESPIRATORY: Breath sounds equal bilaterally. No accessory muscle use. GASTROINTESTINAL: Abdomen soft, non-tender, nondistended. PEG tube in place MUSCULOSKELETAL: No cyanosis, or edema. BACK: Nontender without obvious deformity. No CVA tenderness. A/P Assessment and Plan RF, s/p Trach Intracranial bleed Hydrocephalous HTN C.diff positive PLAN: Cont Flagyl Secretions decreased Cont Trach cappining as tolerated Renard Virgen MD Dec 02, 2016 18:48
[2016-12-02] MEDS: ENOXAPARIN SODIUM 40 MG/0.4 ML SYRINGE SQ SCH (20:00)
[2016-12-03] VITALS (7 sets, daily range): BP systolic 129–161; BP diastolic 70–90; PULSE 87–104; RESP 14–26; TEMP 97.9–98.7; O2SAT 93–96
[2016-12-03] MEDS: CHLORHEXIDINE GLUCONATE 2 % 1 PACK (2 CLOTHS) TOP SCH (04:00)
[2016-12-03] MEDS: LABETALOL HCL 100 MG TAB PO SCH ×3 (04:48→20:25)
[2016-12-03] MEDS: POTASSIUM CHLORIDE 25 MEQ EFFERVESCENT TAB NG SCH ×2 (08:38→20:25)
[2016-12-03] MEDS: amLODIPine BESYLATE 5 MG TAB PO SCH (08:38)
[2016-12-03] MEDS: FLUDROCORTISONE ACETATE 0.1 MG TAB PO SCH ×2 (08:39→20:43)
[2016-12-03] MEDS: LACTOBACILLUS ACIDOPHILUS TAB PO SCH ×2 (08:39→20:25)
[2016-12-03] MEDS: hydrALAZINE HCL 50 MG TAB PO SCH ×2 (08:39→20:25)
[2016-12-03] MEDS: QUEtiapine FUMARATE 25 MG TAB PO SCH ×3 (08:39→20:25)
[2016-12-03] MEDS: PANTOPRAZOLE SODIUM 40 MG VIAL IV SCH (08:40)
[2016-12-03] MEDS: PRAVASTATIN SOD 40 MG TAB PO SCH (08:40)
[2016-12-03] MEDS: SODIUM CHLORIDE 1 GRAM TAB PO SCH (08:40)
[2016-12-03] MEDS: ARTIFICIAL TEARS OPTH SOLN 15 ML BTL EACH EYE SCH ×3 (08:41→18:24)
[2016-12-03] MEDS: NYSTATIN 100,000 U/GM PWD 15 GM BTL TOPICAL SCH ×3 (09:00→18:00)
[2016-12-03] MEDS: SODIUM CHLORIDE 0.9% FLUSH 10 ML FLUSH IV FLUSH SCH (09:00)
--- NOTE | 2016-12-03 13:41 | HHI.PR ---
Subjective Remarks 51 YOWM with TBI,RF,Trach On trach collar Mod amount of trach secretions More awake, strong cough No Fever Trach capped and tolerates it Objective Vital Signs Vital Signs Date Time Temp Pulse Resp B/P Pulse Ox O2 Delivery O2 Flow Rate FiO2 12/03/16 12:00 104 12/03/16 10:00 95 12/03/16 08:00 88 12/03/16 07:00 93 Room Air 12/03/16 04:00 98.6 97 18 132/83 94 12/03/16 04:00 97 12/03/16 00:00 97 12/03/16 00:00 98.7 97 26 129/79 96 12/02/16 21:24 96 21 12/02/16 20:00 98.7 92 19 145/85 95 12/02/16 20:00 92 12/02/16 19:00 94 Room Air 12/02/16 16:00 98.6 88 20 124/72 96 12/02/16 16:00 86 I/O 12/02/16 12/02/16 12/02/16 12/03/16 12/03/16 12/03/16 07:00 15:00 23:00 07:00 15:00 23:00 Intake Total 534 ml 554 ml 572 ml 524 ml Balance 534 ml 554 ml 572 ml 524 ml Tube Feeding 434 ml 494 ml 452 ml 464 ml Tube Irrigant 100 ml 60 ml 120 ml 60 ml # Voids 3 1 2 4 # Bowel Movements 1 1 2 0 Result Diagram: 12/01/16 0333 12/01/16 0333 Objective Remarks GENERAL: WBWN male, on Trach collar SKIN: Warm and dry. HEAD: Normocephalic. EYES: No scleral icterus. No injection or drainage. NECK: Supple, trachea midline. No JVD or lymphadenopathy. Trach collar CARDIOVASCULAR: Regular rate and rhythm without murmurs, gallops, or rubs. RESPIRATORY: Breath sounds equal bilaterally. No accessory muscle use. GASTROINTESTINAL: Abdomen soft, non-tender, nondistended. PEG tube in place MUSCULOSKELETAL: No cyanosis, or edema. BACK: Nontender without obvious deformity. No CVA tenderness. A/P Assessment and Plan RF, s/p Trach Intracranial bleed Hydrocephalous HTN C.diff positive PLAN: Cont Flagyl Secretions decreased Cont Trach cappining as tolerated hope to decannulate in AM Renard Virgen MD Dec 03, 2016 13:41
--- NOTE | 2016-12-03 13:53 | HHI.PR ---
Subjective Remarks Followed for TBI Pt denied fever, body ache,chills, N/V/D, cough, shortness of breath. He did endorse sore throat; not associated with his T-Tube. Discussed with his RN (Dariela) who noted pt had no acute events over night. Otherwise, no new issues noted or reported.. Objective Vitals Vital Signs Date Time Temp Pulse Resp B/P Pulse Ox O2 Delivery O2 Flow Rate FiO2 12/03/16 08:00 88 12/03/16 07:00 93 Room Air 12/03/16 04:00 98.6 97 18 132/83 94 12/03/16 04:00 97 12/03/16 00:00 97 12/03/16 00:00 98.7 97 26 129/79 96 12/02/16 21:24 96 21 12/02/16 20:00 98.7 92 19 145/85 95 12/02/16 20:00 92 12/02/16 19:00 94 Room Air 12/02/16 16:00 98.6 88 20 124/72 96 12/02/16 16:00 86 I/O 12/02/16 12/02/16 12/02/16 12/03/16 12/03/16 12/03/16 06:59 14:59 22:59 06:59 14:59 22:59 Intake Total 534 ml 554 ml 572 ml 524 ml Balance 534 ml 554 ml 572 ml 524 ml Tube Feeding 434 ml 494 ml 452 ml 464 ml Tube Irrigant 100 ml 60 ml 120 ml 60 ml # Voids 3 1 2 4 # Bowel Movements 1 1 2 0 Result Diagram: 12/01/16 0333 12/01/16 0333 Imaging Last Impressions Abdomen X-Ray 11/28/16 0000 Signed Impressions: Service Date/Time: Monday, November 28, 2016 16:00 - CONCLUSION: 1. No evidence of bowel obstruction, ileus or perforation. 2. Degenerative changes and scoliosis of the thoracolumbar spine. 3. Degenerative changes involving the hip joints bilaterally. Juan Worley MD Head CT 11/24/16 0000 Signed Impressions: Service Date/Time: October 22:29 - CONCLUSION: Patient is now shunted. Normal ventricular size. No bleed or other acute complication. Tim Hammonds MD Chest X-Ray 11/01/16 0600 Signed Impressions: Service Date/Time: Tuesday, November 01, 2016 04:37 - CONCLUSION: 1. No acute cardiopulmonary disease. Trevin De León MD Transcranial Doppler Study Complete 10/26/16 0700 Signed Impressions: Service Date/Time: Wednesday, October 26, 2016 08:20 - CONCLUSION: Minimal interval improvement with no evidence for vasospasm. Christian Song MD FACR Neck CTA 10/19/16 0000 Signed Impressions: Service Date/Time: Wednesday, October 19, 2016 14:19 - CONCLUSION: Negative for dissection or significant stenosis. Christian Song MD FACR Head CTA 10/19/16 0000 Signed Impressions: Service Date/Time: Wednesday, October 19, 2016 14:19 - CONCLUSION: 1. Interval development of significant vasospasm in the left MCA and SRI territories. 2. Mild vasospasm in the basilar artery.. Gume Mckeon MD Cerebral Arteriogram 10/19/16 0000 Signed Impressions: Service Date/Time: Wednesday, October 19, 2016 16:06 - CONCLUSION: 1. Vasospasm in the left MCA and SRI territories 2. Spasmolytic infusion, left internal carotid artery as above.. 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 Gume Mckeon MD Pelvis X-Ray 10/05/16109 Signed Impressions: Service Date/Time: Wednesday, October 05, 2016 01:22 - CONCLUSION: Unremarkable examination of the pelvis. Ruben Acuña Jr., MD Chest CT 10/05/16109 Signed Impressions: Service Date/Time: Wednesday, October 05, 2016 01:46 - CONCLUSION: 1. No acute intrathoracic abnormality. 2. Bibasilar atelectasis. 3. Cardiomegaly. 4. Prior granulomatous disease. Ruben Acuña Jr., MD Cervical Spine CT 10/05/16109 Signed Impressions: Service Date/Time: Wednesday, October 05, 2016 01:40 - CONCLUSION: 1. No fracture or dislocation. 2. Multilevel degenerative changes. Ruben Acuña Jr., MD Abdomen/Pelvis CT 10/05/16 0110 Signed Impressions: Service Date/Time: Wednesday, October 05, 2016 01:46 - CONCLUSION: 1. No acute trauma. 2. Rounded area of decreased density involving the pancreatic head. I cannot completely exclude pancreatic head mass. At some point MRI of the pancreas is suggested to further evaluate. 3. Focal area of poor enhancement involving the left kidney. This may relate to an area of parenchymal scarring. I cannot completely exclude a mass. This can be further assessed with MRI as well. Ruben Acuña Jr., MD Objective Remarks GENERAL: Pt encountered laying a bed, sleeping ,easily awakened SKIN: Warm and dry.Right side of skull evidencing recent surgery. HEAD: Normocephalic. EYES: No scleral icterus. No injection or drainage. NECK: Supple, trachea midline. No lymphadenopathy. CARDIOVASCULAR: Regular rate and rhythm without murmurs, gallops, or rubs. RESPIRATORY: Breath sounds equal bilaterally. No accessory muscle use. GASTROINTESTINAL: Abdomen soft, non-tender, nondistended. Feeding tube present. MUSCULOSKELETAL: No cyanosis, or edema. PSYCHIATRIC: Pt alert and oriented to self. Said he was unaware of where he was and felt he was 'in a bar". He did not evidence overt signs of anxiety or depression. Procedures 10/05/16 right frontal twist drill for ventriculostomy placement 10/20/16 arterial line placement 10/23/16 bedside percutaneous tracheostomy under direct bronchoscopic visualization 10/24/16 PEG tube placement at bedside Medications and IVs Current Medications Medications (Trade) Dose Ordered Sig/Nava Route Start Time Stop Time Status Last Admin (Tylenol) 650 mg Q6H PRN PO 10/05/16 02:45 11/24/16 20:17 (Protonix Inj) 40 mg DAILY IV 10/05/16 09:00 12/03/16 08:40 (Tears Naturale Opth Soln) 1 drop TID EACH EYE 10/05/16 09:00 12/03/16 08:41 (Zofran Inj) 4 mg Q6H PRN IV 10/05/16 02:45 11/27/16 23:26 Miscellaneous Information 1 Q361D XX 10/05/16 02:45 10/05/16 02:45 (Chlorhexidine 2% Cloth) 3 pack Taper DAILY@04 TOP 10/05/16 04:00 10/01/17 03:59 12/03/16 04:00 (Chlorhexidine 2% Cloth) 3 pack UNSCH PRN TOP 10/05/16 02:45 (Pravachol) 40 mg DAILY PO 10/05/16 09:00 12/03/16 08:40 (NS Flush) See Protocol DAILY IV FLUSH 10/07/16 09:00 12/03/16 09:00 (NS Flush) See Protocol UNSCH PRN IV FLUSH 10/06/16 12:00 (NS Flush) UNSCH PRN IV FLUSH 10/06/16 12:00 11/21/16 19:37 (Florinef) 0.2 mg Q12HR PO 10/22/16 21:00 12/03/16 08:39 Enoxaparin Sodium 40 mg 40 mg Q24H SQ 10/23/16 21:00 12/02/16 20:00 Potassium Phosphate 30 mmol/ Sodium Chloride 260 ml @ 42 mls/hr UNSCH PRN IV 10/24/16 15:15 Potassium Chloride 100 ml @ 50 mls/hr Q2H PRN IV 11/03/16 05:15 11/20/16 07:31 (KCl 20 Meq Premix Inj) 100 ml @ 50 mls/hr Q2H PRN IV 11/03/16 05:15 11/29/16 06:01 Potassium Bicarb/ Potassium Chloride 50 meq 50 meq UNSCH PRN PO 11/03/16 05:15 11/22/16 07:07 Potassium Chloride 100 ml @ 25 mls/hr UNSCH PRN IV 11/03/16 05:15 11/19/16 01:44 Potassium Chloride 100 ml @ 50 mls/hr Q2H PRN IV 11/03/16 05:15 11/25/16 08:51 (Magnesium Sulfate Inj/NS Inj) 100 ml @ 50 mls/hr UNSCH PRN IV 11/03/16 05:15 Magnesium Oxide 800 mg 800 mg UNSCH PRN PO 11/03/16 05:15 (Magnesium Sulfate Inj/NS Inj) 100 ml @ 50 mls/hr UNSCH PRN IV 11/03/16 05:15 Potassium Phosphate 2000 mg 2,000 mg Q4H PRN PO 11/03/16 05:15 (Sodium Phosphate Inj/NS 250 ml Inj) 250 ml @ 42 mls/hr UNSCH PRN IV 11/03/16 05:15 (K-Phos) 2,000 mg UNSCH PRN PO/TUBE 11/03/16 05:15 (Trandate) 100 mg Q8H PO 11/03/16 20:00 12/03/16 04:48 (Apresoline) 50 mg Q12HR PO 11/03/16 19:00 12/03/16 08:39 (Norvasc) 5 mg DAILY PO 11/04/16 09:00 12/03/16 08:38 (Mycostatin Powder) 1 applic TID TOPICAL 11/06/16 09:00 12/03/16 09:00 (Lactinex) 1 tab Q12HR PO 11/06/16 21:00 12/03/16 08:39 (SEROquel) 25 mg BID@09,12 PO 11/07/16 09:00 12/03/16 08:39 (Colace Liq) 100 mg Q12H PRN G-TUBE 11/06/16 17:00 (Imodium) 2 mg UNSCH PRN PO 11/09/16 09:45 11/29/16 12:57 (Lomotil Tab) 1 tab Q6H PRN PO 11/09/16 09:45 (Benadryl Inj) 50 mg Q6H PRN IV 11/16/16 23:00 11/29/16 23:29 (SEROquel) 25 mg HS PO 11/20/16 21:00 12/02/16 20:00 (Sodium Chloride) 2 gm DAILY PO 11/24/16 09:00 12/03/16 08:40 (K-Lyte Cl Eff) 25 meq Q12HR NG 11/25/16 21:00 12/03/16 08:38 Urinary Catheter: No Vascular Central Line Catheter: No A/P Problem List: (1) 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 ICD Code: I60.8 Status: Acute (2) Hypertension ICD Code: I10 Status: Chronic (3) Major neurocognitive disorder due to vascular disease, without behavioral disturbance, severe ICD Code: F01.50 Status: Acute (4) Septic shock ICD Code: A41.9 Status: Resolved (5) Hydrocephalus ICD Code: G91.9 Status: Acute (6) Intracranial hemorrhage ICD Code: I62.9 Status: Acute (7) Major neurocognitive disorder as late effect of traumatic brain injury with behavioral disturbance ICD Code: S06.9X9S Status: Acute (8) Encephalopathy ICD Code: G93.40 Status: Acute (9) Sepsis ICD Code: A41.9 Status: Resolved (10) Pneumonia ICD Code: J18.9 Status: Acute (11) Protein-calorie malnutrition, mild ICD Code: E44.1 Status: Acute (12) Acute respiratory failure with hypoxia and hypercarbia ICD Code: J96.01 Status: Acute Assessment and Plan 51 yo M with aneurysmal SAH, s/p basilar artery coiling 10/05. S/p IA Verapamil and 10/19 for cerebral vasospasm. There is some improvement in encephalopathy , acute hypoxic respiratory failure on trach pulm following. . Resolved sepsis. Possible cerebral salt wasting. Was started on salt tabs, 3% saline, florinef, and NS . strict I/Os. TCDs per N/S. s/p Trach 10/23 and PEG 10/24. Had Enterobacter in the sputum. Finished ABX With hydrocephalus s/p shunt on 11/24/[address] Eaton. Viridans strep in CSF culture --> contaminant per [facility] and Dr Mace , patient is not having symptoms if infection, monitor if altered mental status, fevers or leukocytosis developed then will need repeat CSF cultures. Had C diff resolved post flayl , now off abx. Aneurysmal subarachnoid hemorrhage, occurred on 10/05/16: -Appreciate neurosurgery recommendations. Okay for Lovenox per neurosurgery. Continue Keppra for seizure prophylaxis. -Status post PIPEFITTER WELDER shunt on 11/24/2016 + Streptococcus viridans in the CSF broth, media was negative. -Clinically patient is doing well. -Dr. Mace stated that CSF fluid was obtain as routine when he does have PIPEFITTER WELDER shunt. -Dr. Mace stated most likely a contaminant recommends reconsult infectious disease. Consult placed. Discussed with Dr Servin ID also thinks is contaminant. Patient is not having symptoms if infection, monitor if altered mental status, fevers or leukocytosis developed then will need repeat CSF cultures. -Monitoring labs Projectile vomiting on 11/26/2016 with mild epigastric pain. Resolved. -Patient has been asymptomatic since then. KUB negative for any small bowel obstruction or ileus. -Patient is on a PPI. -Continue to monitor clinically. Encephalopathy: -Secondary to above. Mental status is improving slowly. Acute hypoxic, hypercarbic respiratory failure: -Tracheostomy 10/23/16. Continue supplemental oxygen. DuoNeb as needed, scheduled. Trach management per pulmonology. Septic shock: Resolved. Possible cerebral salt wasting: - Continue Florinef, sodium chloride tablets. Mild acute protein calorie malnutrition -Continue tube feedings. Monitor labs. Pneumonia: - Completed antibiotics. C. difficile colitis: -Continue Flagyl. Repeat C. difficile studies are negative. -Patient needs 1 more repeat in order to be off of isolation. Hyperglycemia of critical illness: - Improved. Hydrocephalus: -Repeat head CT unchanged. PIPEFITTER WELDER shunt placement today. Hypokalemia -: Improved DVT prophylaxis: SCDs, YOUSIF hose, Lovenox. GI prophylaxis: Protonix. Discharge Planning Patient stable to be transferred out of [facility] but no beds available. Pending SSI and medicaid for placement. Patient with CSF fluid with Viridans strep likely contaminant. Monitor for fever , leukocytosis, altered mental status and repeat CSF analysis if occurs. Problem Qualifiers (1) Hypertension: Qualified Code: I10 - Essential hypertension Manolo Alvarez Jr. Dec 03, 2016 13:53
[2016-12-03] MEDS: ENOXAPARIN SODIUM 40 MG/0.4 ML SYRINGE SQ SCH (20:25)
[2016-12-04] VITALS (8 sets, daily range): BP systolic 130–149; BP diastolic 84–91; PULSE 89–98; RESP 17–23; TEMP 97.8–98.6; O2SAT 94–97
[2016-12-04] MEDS: CHLORHEXIDINE GLUCONATE 2 % 1 PACK (2 CLOTHS) TOP SCH (04:00)
[2016-12-04 04:17] LABS: HEMATOCRIT 31.5 % (39.0-51.0); HEMOGLOBIN 10.7 GM/DL (13.0-17.0); MEAN CELL VOLUME 85.5 FL (80.0-100.0); MEAN CORPUSCULAR HGB CONC 33.9 % (32.0-36.0); MEAN PLATELET VOLUME 8.8 FL (7.0-11.0); PLATELET COUNT 303 TH/MM3 (150-450); RED BLOOD COUNT 3.68 MIL/MM3 (4.50-5.90); RED CELL DISTRIBUTION WIDTH 14.7 % (11.6-17.2); WHITE BLOOD COUNT 7.5 TH/MM3 (4.0-11.0)
[2016-12-04] MEDS: LABETALOL HCL 100 MG TAB PO SCH ×3 (04:40→21:00)
[2016-12-04 04:48] LABS: CALCIUM 8.8 MG/DL (8.5-10.1); CREATININE 0.84 MG/DL (0.60-1.30)
[2016-12-04] MEDS: NYSTATIN 100,000 U/GM PWD 15 GM BTL TOPICAL SCH ×3 (08:55→17:24)
[2016-12-04] MEDS: SODIUM CHLORIDE 0.9% FLUSH 10 ML FLUSH IV FLUSH SCH (08:55)
[2016-12-04] MEDS: ARTIFICIAL TEARS OPTH SOLN 15 ML BTL EACH EYE SCH ×3 (08:55→17:24)
[2016-12-04] MEDS: POTASSIUM CHLORIDE 25 MEQ EFFERVESCENT TAB NG SCH ×2 (08:55→20:57)
[2016-12-04] MEDS: PANTOPRAZOLE SODIUM 40 MG VIAL IV SCH (08:56)
[2016-12-04] MEDS: PRAVASTATIN SOD 40 MG TAB PO SCH (08:56)
[2016-12-04] MEDS: hydrALAZINE HCL 50 MG TAB PO SCH ×2 (08:56→20:58)
[2016-12-04] MEDS: SODIUM CHLORIDE 1 GRAM TAB PO SCH (08:57)
[2016-12-04] MEDS: amLODIPine BESYLATE 5 MG TAB PO SCH (08:57)
[2016-12-04] MEDS: LACTOBACILLUS ACIDOPHILUS TAB PO SCH ×2 (08:57→20:58)
[2016-12-04] MEDS: FLUDROCORTISONE ACETATE 0.1 MG TAB PO SCH ×2 (08:57→20:58)
[2016-12-04] MEDS: QUEtiapine FUMARATE 25 MG TAB PO SCH ×3 (08:57→20:58)
--- NOTE | 2016-12-04 11:47 | HHI.PR ---
Subjective Remarks Followed for TBI Pt denied fever, body ache,chills, N/V/D, cough, shortness of breath. He denied sore throat; which he endorsed yesterday. Discussed with his RN (Nery) who noted pt had no acute events over night. RN stated pt is "impulsive" and remains in two point soft wrist restraints Otherwise, no new issues noted or reported.. Objective Vitals Vital Signs Date Time Temp Pulse Resp B/P Pulse Ox O2 Delivery O2 Flow Rate FiO2 12/04/16 08:00 89 12/04/16 08:00 98.4 94 23 136/84 94 12/04/16 07:13 97 21 12/04/16 07:00 95 Room Air 12/04/16 04:00 98.3 98 23 149/85 95 12/04/16 04:00 98 12/04/16 00:00 98.4 98 23 148/86 94 12/04/16 00:00 98 12/03/16 20:00 92 12/03/16 20:00 98.1 92 14 131/90 96 12/03/16 19:00 96 Room Air 12/03/16 16:00 88 12/03/16 16:00 97.9 88 18 131/76 95 12/03/16 12:00 104 I/O 12/03/16 12/03/16 12/03/16 12/04/16 12/04/16 12/04/16 07:00 15:00 23:00 07:00 15:00 23:00 Intake Total 524 ml 557 ml 547 ml 533 ml Balance 524 ml 557 ml 547 ml 533 ml Tube Feeding 464 ml 457 ml 427 ml 413 ml Tube Irrigant 60 ml 120 ml 120 ml Other 100 ml # Voids 4 4 2 4 # Bowel Movements 0 1 0 Result Diagram: 12/04/1631612/04/16316 Imaging No new imaging, oridered, pending, or resulted within past 24 hours. Objective Remarks GENERAL: Pt encountered laying a bed, sleeping ,easily awakened. SKIN: Warm and dry.Right side of skull evidencing recent surgery. HEAD: Normocephalic. EYES: No scleral icterus. No injection or drainage. NECK: Supple, trachea midline. No lymphadenopathy. T-tube psychiatric registered nurse in place. CARDIOVASCULAR: Regular rate and rhythm without murmurs, gallops, or rubs. RESPIRATORY: Breath sounds equal bilaterally. No accessory muscle use. GASTROINTESTINAL: Abdomen soft, non-tender, nondistended. Feeding tube present. MUSCULOSKELETAL: No cyanosis, or edema. PSYCHIATRIC: Pt alert and oriented to self. Said he was unaware of where he was and the year was "1983". He did not evidence overt signs of anxiety or depression. Per nursing pt is reportd to be impulsive, pulling at lines and tubing. He has a sitter with him and is in two point, soft, wrist restraints. Procedures 10/05/16 right frontal twist drill for ventriculostomy placement 10/20/16 arterial line placement 10/23/16 bedside percutaneous tracheostomy under direct bronchoscopic visualization 10/24/16 PEG tube placement at bedside Medications and IVs Current Medications Medications (Trade) Dose Ordered Sig/Nava Route Start Time Stop Time Status Last Admin (Tylenol) 650 mg Q6H PRN PO 10/05/16 02:45 11/24/16 20:17 (Protonix Inj) 40 mg DAILY IV 10/05/16 09:00 12/04/16 08:56 (Tears Naturale Opth Soln) 1 drop TID EACH EYE 10/05/16 09:00 12/04/16 08:55 (Zofran Inj) 4 mg Q6H PRN IV 10/05/16 02:45 11/27/16 23:26 Miscellaneous Information 1 Q361D XX 10/05/16 02:45 10/05/16 02:45 (Chlorhexidine 2% Cloth) 3 pack Taper DAILY@04 TOP 10/05/16 04:00 10/01/17 03:59 12/03/16 04:00 (Chlorhexidine 2% Cloth) 3 pack UNSCH PRN TOP 10/05/16 02:45 (Pravachol) 40 mg DAILY PO 10/05/16 09:00 12/04/16 08:56 (NS Flush) See Protocol DAILY IV FLUSH 10/07/16 09:00 12/04/16 08:55 (NS Flush) See Protocol UNSCH PRN IV FLUSH 10/06/16 12:00 (NS Flush) UNSCH PRN IV FLUSH 10/06/16 12:00 11/21/16 19:37 (Florinef) 0.2 mg Q12HR PO 10/22/16 21:00 12/04/16 08:57 Enoxaparin Sodium 40 mg 40 mg Q24H SQ 10/23/16 21:00 12/03/16 20:25 Potassium Phosphate 30 mmol/ Sodium Chloride 260 ml @ 42 mls/hr UNSCH PRN IV 10/24/16 15:15 Potassium Chloride 100 ml @ 50 mls/hr Q2H PRN IV 11/03/16 05:15 11/20/16 07:31 (KCl 20 Meq Premix Inj) 100 ml @ 50 mls/hr Q2H PRN IV 11/03/16 05:15 11/29/16 06:01 Potassium Bicarb/ Potassium Chloride 50 meq 50 meq UNSCH PRN PO 11/03/16 05:15 11/22/16 07:07 Potassium Chloride 100 ml @ 25 mls/hr UNSCH PRN IV 11/03/16 05:15 11/19/16 01:44 Potassium Chloride 100 ml @ 50 mls/hr Q2H PRN IV 11/03/16 05:15 11/25/16 08:51 (Magnesium Sulfate Inj/NS Inj) 100 ml @ 50 mls/hr UNSCH PRN IV 11/03/16 05:15 Magnesium Oxide 800 mg 800 mg UNSCH PRN PO 11/03/16 05:15 (Magnesium Sulfate Inj/NS Inj) 100 ml @ 50 mls/hr UNSCH PRN IV 11/03/16 05:15 Potassium Phosphate 2000 mg 2,000 mg Q4H PRN PO 11/03/16 05:15 (Sodium Phosphate Inj/NS 250 ml Inj) 250 ml @ 42 mls/hr UNSCH PRN IV 11/03/16 05:15 (K-Phos) 2,000 mg UNSCH PRN PO/TUBE 11/03/16 05:15 (Trandate) 100 mg Q8H PO 11/03/16 20:00 12/04/16 04:40 (Apresoline) 50 mg Q12HR PO 11/03/16 19:00 12/04/16 08:56 (Norvasc) 5 mg DAILY PO 11/04/16 09:00 12/04/16 08:57 (Mycostatin Powder) 1 applic TID TOPICAL 11/06/16 09:00 12/04/16 08:55 (Lactinex) 1 tab Q12HR PO 11/06/16 21:00 12/04/16 08:57 (SEROquel) 25 mg BID@09,12 PO 11/07/16 09:00 12/04/16 08:57 (Colace Liq) 100 mg Q12H PRN G-TUBE 11/06/16 17:00 (Imodium) 2 mg UNSCH PRN PO 11/09/16 09:45 11/29/16 12:57 (Lomotil Tab) 1 tab Q6H PRN PO 11/09/16 09:45 (Benadryl Inj) 50 mg Q6H PRN IV 11/16/16 23:00 11/29/16 23:29 (SEROquel) 25 mg HS PO 11/20/16 21:00 12/03/16 20:25 (Sodium Chloride) 2 gm DAILY PO 11/24/16 09:00 12/04/16 08:57 (K-Lyte Cl Eff) 25 meq Q12HR NG 11/25/16 21:00 12/04/16 08:55 Urinary Catheter: Yes Assessment to: Continue Paul insert reason: Prolonged Immobilization A/P Problem List: (1) 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 ICD Code: I60.8 Status: Acute (2) Hypertension ICD Code: I10 Status: Chronic (3) Major neurocognitive disorder due to vascular disease, without behavioral disturbance, severe ICD Code: F01.50 Status: Acute (4) Septic shock ICD Code: A41.9 Status: Resolved (5) Hydrocephalus ICD Code: G91.9 Status: Acute (6) Intracranial hemorrhage ICD Code: I62.9 Status: Acute (7) Major neurocognitive disorder as late effect of traumatic brain injury with behavioral disturbance ICD Code: S06.9X9S Status: Acute (8) Encephalopathy ICD Code: G93.40 Status: Acute (9) Sepsis ICD Code: A41.9 Status: Resolved (10) Pneumonia ICD Code: J18.9 Status: Acute (11) Protein-calorie malnutrition, mild ICD Code: E44.1 Status: Acute (12) Acute respiratory failure with hypoxia and hypercarbia ICD Code: J96.01 Status: Acute Assessment and Plan 51 yo M with aneurysmal SAH, s/p basilar artery coiling 10/05. S/p IA Verapamil and 10/19 for cerebral vasospasm. There is some improvement in encephalopathy , acute hypoxic respiratory failure on trach pulm following. . Resolved sepsis. Possible cerebral salt wasting. Was started on salt tabs, 3% saline, florinef, and NS . strict I/Os. TCDs per N/S. s/p Trach 10/23 and PEG 10/24. Had Enterobacter in the sputum. Finished ABX With hydrocephalus s/p shunt on 11/24/[address] Eaton. Viridans strep in CSF culture --> contaminant per ID and Dr Mace , patient is not having symptoms if infection, monitor if altered mental status, fevers or leukocytosis developed then will need repeat CSF cultures. Had C diff resolved post flayl , now off abx. Aneurysmal subarachnoid hemorrhage, occurred on 10/05/16: -Appreciate neurosurgery recommendations. Okay for Lovenox per neurosurgery. Continue Keppra for seizure prophylaxis. -Status post SEED CLEANING MACHINE OPERATOR shunt on 11/24/2016 + Streptococcus viridans in the CSF broth, media was negative. -Clinically patient is doing well. -Dr. Mace stated that CSF fluid was obtain as routine when he does have SEED CLEANING MACHINE OPERATOR shunt. -Dr. Mace stated most likely a contaminant recommends reconsult infectious disease. Consult placed. Discussed with Dr Servin ID also thinks is contaminant. Patient is not having symptoms if infection, monitor if altered mental status, fevers or leukocytosis developed then will need repeat CSF cultures. -Monitoring labs Projectile vomiting on 11/26/2016 with mild epigastric pain. Resolved. -Patient has been asymptomatic since then. KUB negative for any small bowel obstruction or ileus. -Patient is on a PPI. -Continue to monitor clinically. Encephalopathy: -Secondary to above. Mental status is improving slowly. Acute hypoxic, hypercarbic respiratory failure: -Tracheostomy 10/23/16. Continue supplemental oxygen. DuoNeb as needed, scheduled. Trach management per pulmonology. -Pulmonology note of indicated pt may be decannulated today (12/04/16). Septic shock: Resolved. Possible cerebral salt wasting: - Continue Florinef, sodium chloride tablets. Mild acute protein calorie malnutrition -Continue tube feedings. Monitor labs. Pneumonia: - Completed antibiotics. C. difficile colitis: -Continue Flagyl. Repeat C. difficile studies are negative. -Patient needs 1 more repeat in order to be off of isolation. Hyperglycemia of critical illness: - Improved. Hydrocephalus: -Repeat head CT unchanged. SEED CLEANING MACHINE OPERATOR shunt placement today. Hypokalemia -: Improved DVT prophylaxis: SCDs, YOUSIF hose, Lovenox. GI prophylaxis: Protonix. Case discussed with pt, RN (Nery), and Dr. Cooper. Discharge Planning Patient stable to be transferred out of [facility] but no beds available. Pending SSI and medicaid for placement. Patient with CSF fluid with Viridans strep likely contaminant. Monitor for fever , leukocytosis, altered mental status and repeat CSF analysis if occurs. Problem Qualifiers (1) Hypertension: Qualified Code: I10 - Essential hypertension Manolo Alvarez Jr. Dec 04, 2016 11:47
--- NOTE | 2016-12-04 14:36 | HHI.PR ---
Subjective Remarks 51 YOWM with TBI,RF,Trach On trach collar Mod amount of trach secretions More awake, strong cough No Fever Pulled out trach Doing well on RA Objective Vital Signs Vital Signs Date Time Temp Pulse Resp B/P Pulse Ox O2 Delivery O2 Flow Rate FiO2 12/04/16 12:00 96 12/04/16 12:00 97.8 96 22 130/89 95 12/04/16 08:00 89 12/04/16 08:00 98.4 94 23 136/84 94 12/04/16 07:13 97 21 12/04/16 07:00 95 Room Air 12/04/16 04:00 98.3 98 23 149/85 95 12/04/16 04:00 98 12/04/16 00:00 98.4 98 23 148/86 94 12/04/16 00:00 98 12/03/16 20:00 92 12/03/16 20:00 98.1 92 14 131/90 96 12/03/16 19:00 96 Room Air 12/03/16 16:00 88 12/03/16 16:00 97.9 88 18 131/76 95 I/O 12/03/16 12/03/16 12/03/16 12/04/16 12/04/16 12/04/16 06:59 14:59 22:59 06:59 14:59 22:59 Intake Total 524 ml 557 ml 547 ml 533 ml 592 ml Output Total 150 ml Balance 524 ml 557 ml 547 ml 533 ml 442 ml IV Total 0 ml Tube Feeding 464 ml 457 ml 427 ml 413 ml 472 ml Tube Irrigant 60 ml 120 ml 120 ml 120 ml Other 100 ml Output Urine Total 150 ml # Voids 4 4 2 4 2 # Bowel Movements 0 1 0 0 Result Diagram: 12/04/1631612/04/16316 Objective Remarks GENERAL: WBWN male, on Trach collar SKIN: Warm and dry. HEAD: Normocephalic. EYES: No scleral icterus. No injection or drainage. NECK: Supple, trachea midline. No JVD or lymphadenopathy. CARDIOVASCULAR: Regular rate and rhythm without murmurs, gallops, or rubs. RESPIRATORY: Breath sounds equal bilaterally. No accessory muscle use. GASTROINTESTINAL: Abdomen soft, non-tender, nondistended. PEG tube in place MUSCULOSKELETAL: No cyanosis, or edema. BACK: Nontender without obvious deformity. No CVA tenderness. A/P Assessment and Plan RF, s/p Trach remoal Intracranial bleed Hydrocephalous HTN C.diff positive PLAN: Cont Flagyl Secretions decreased Stable on RA Trach site care. LISA RN and RT Renard Virgen MD Dec 04, 2016 14:36
[2016-12-04] MEDS: ENOXAPARIN SODIUM 40 MG/0.4 ML SYRINGE SQ SCH (20:58)
[2016-12-05] VITALS (9 sets, daily range): BP systolic 131–152; BP diastolic 82–85; PULSE 79–102; RESP 15–26; TEMP 96.5–98.6; O2SAT 95–98
[2016-12-05] MEDS: CHLORHEXIDINE GLUCONATE 2 % 1 PACK (2 CLOTHS) TOP SCH (04:00)
[2016-12-05] MEDS: LABETALOL HCL 100 MG TAB PO SCH ×3 (04:34→21:34)
[2016-12-05] MEDS: SODIUM CHLORIDE 0.9% FLUSH 10 ML FLUSH IV FLUSH SCH (09:00)
[2016-12-05] MEDS: PRAVASTATIN SOD 40 MG TAB PO SCH (09:00)
[2016-12-05] MEDS: ARTIFICIAL TEARS OPTH SOLN 15 ML BTL EACH EYE SCH ×3 (09:00→17:51)
[2016-12-05] MEDS: SODIUM CHLORIDE 1 GRAM TAB PO SCH (09:00)
[2016-12-05] MEDS: NYSTATIN 100,000 U/GM PWD 15 GM BTL TOPICAL SCH ×3 (09:00→17:51)
[2016-12-05] MEDS: FLUDROCORTISONE ACETATE 0.1 MG TAB PO SCH ×2 (09:55→21:00)
[2016-12-05] MEDS: QUEtiapine FUMARATE 25 MG TAB PO SCH ×3 (09:55→21:00)
[2016-12-05] MEDS: LACTOBACILLUS ACIDOPHILUS TAB PO SCH ×2 (09:55→21:00)
[2016-12-05] MEDS: hydrALAZINE HCL 50 MG TAB PO SCH ×2 (09:55→21:00)
[2016-12-05] MEDS: amLODIPine BESYLATE 5 MG TAB PO SCH (09:55)
[2016-12-05] MEDS: PANTOPRAZOLE SODIUM 40 MG VIAL IV SCH (09:56)
[2016-12-05] MEDS: POTASSIUM CHLORIDE 25 MEQ EFFERVESCENT TAB NG SCH ×2 (10:10→21:00)
--- NOTE | 2016-12-05 10:41 | HHI.PR ---
Subjective Remarks Follow up TBI. Patient seen and examined today. Awake and alert, pleasantly confused. Denies any new complaints. Spoke to RN, no new acute complaints overnight. Has been having continued diarrhea. Patient decannulated himself yesterday, doing well on RA. Denies any recent fever, chills, cough, shortness of breath, chest pain, palpitations, abdominal pain ,n/v or dysuria. Afebrile. VSS. Objective Vitals Vital Signs Date Time Temp Pulse Resp B/P Pulse Ox O2 Delivery O2 Flow Rate FiO2 12/05/16 07:53 95 21 12/05/16 04:00 87 12/05/16 04:00 96.5 87 24 152/82 98 12/05/16 02:00 87 12/05/16 02:00 12/05/16 00:00 98.1 95 24 144/82 95 12/05/16 00:00 95 12/04/16 20:00 94 12/04/16 20:00 98.2 94 19 138/88 96 12/04/16 19:44 95 12/04/16 19:00 96 Room Air 12/04/16 16:00 90 12/04/16 16:00 98.6 90 17 134/91 96 12/04/16 12:00 96 12/04/16 12:00 97.8 96 22 130/89 95 I/O 12/04/16 12/04/16 12/04/16 12/05/16 12/05/16 12/05/16 07:00 15:00 23:00 07:00 15:00 23:00 Intake Total 533 ml 592 ml 556 ml 569 ml Output Total 150 ml Balance 533 ml 442 ml 556 ml 569 ml IV Total 0 ml 0 ml Tube Feeding 413 ml 472 ml 436 ml 529 ml Tube Irrigant 120 ml 120 ml 120 ml 40 ml Output Urine Total 150 ml # Voids 4 2 1 2 # Bowel Movements 0 0 0 1 Result Diagram: 12/04/1631612/04/16316 Imaging Last Impressions Abdomen X-Ray 11/28/16 0000 Signed Impressions: Service Date/Time: Monday, November 28, 2016 16:00 - CONCLUSION: 1. No evidence of bowel obstruction, ileus or perforation. 2. Degenerative changes and scoliosis of the thoracolumbar spine. 3. Degenerative changes involving the hip joints bilaterally. Juan Worley MD Head CT 11/24/16 0000 Signed Impressions: Service Date/Time: October 22:29 - CONCLUSION: Patient is now shunted. Normal ventricular size. No bleed or other acute complication. Tim Hammonds MD Chest X-Ray 11/01/16 0600 Signed Impressions: Service Date/Time: Tuesday, November 01, 2016 04:37 - CONCLUSION: 1. No acute cardiopulmonary disease. Trevin De León MD Transcranial Doppler Study Complete 10/26/16 0700 Signed Impressions: Service Date/Time: Wednesday, October 26, 2016 08:20 - CONCLUSION: Minimal interval improvement with no evidence for vasospasm. Christian Song MD FACR Neck CTA 10/19/16 0000 Signed Impressions: Service Date/Time: Wednesday, October 19, 2016 14:19 - CONCLUSION: Negative for dissection or significant stenosis. Christian Song MD FACR Head CTA 10/19/16 0000 Signed Impressions: Service Date/Time: Wednesday, October 19, 2016 14:19 - CONCLUSION: 1. Interval development of significant vasospasm in the left MCA and SRI territories. 2. Mild vasospasm in the basilar artery.. Gume Mckeon MD Cerebral Arteriogram 10/19/16 0000 Signed Impressions: Service Date/Time: Wednesday, October 19, 2016 16:06 - CONCLUSION: 1. Vasospasm in the left MCA and SRI territories 2. Spasmolytic infusion, left internal carotid artery as above.. 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 Gume Mckeon MD Pelvis X-Ray 10/05/16 011 Signed Impressions: Service Date/Time: Wednesday, October 05, 2016 01:22 - CONCLUSION: Unremarkable examination of the pelvis. Ruben Acuña Jr., MD Chest CT 10/05/16 0110 Signed Impressions: Service Date/Time: Wednesday, October 05, 2016 01:46 - CONCLUSION: 1. No acute intrathoracic abnormality. 2. Bibasilar atelectasis. 3. Cardiomegaly. 4. Prior granulomatous disease. Ruben Acuña Jr., MD Cervical Spine CT 10/05/16109 Signed Impressions: Service Date/Time: Wednesday, October 05, 2016 01:40 - CONCLUSION: 1. No fracture or dislocation. 2. Multilevel degenerative changes. Ruben Acuña Jr., MD Abdomen/Pelvis CT 10/05/16109 Signed Impressions: Service Date/Time: Wednesday, October 05, 2016 01:46 - CONCLUSION: 1. No acute trauma. 2. Rounded area of decreased density involving the pancreatic head. I cannot completely exclude pancreatic head mass. At some point MRI of the pancreas is suggested to further evaluate. 3. Focal area of poor enhancement involving the left kidney. This may relate to an area of parenchymal scarring. I cannot completely exclude a mass. This can be further assessed with MRI as well. Ruben Acuña Jr., MD Objective Remarks GENERAL: Well-nourished, well-developed male patient, in no apparent distress lying in bed comfortably. Pleasantly confused, oriented x 1. SKIN: No rash. Warm and dry. HEENT: R parietal incision clean ands dry reed in, no drainage. Pupils equal round and reactive. Extraocular motions intact. No scleral icterus. No injection or drainage. Oral mucosa moist. NECK: Trachea midline. Supple. CARDIOVASCULAR: RRR. No murmur appreciated. RESPIRATORY: Clear to auscultation. Breath sounds equal bilaterally. No wheezes , rales, or rhonchi. GASTROINTESTINAL: Abdomen soft, non-tender, nondistended. No guarding. Abdominal binder in place. PEG in place. MUSCULOSKELETAL: Extremities without clubbing, cyanosis, or edema. NEUROLOGICAL: Awake and alert. Moves all 4 extremities, equal no weakness noted. 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 ICD Code: I60.8 Status: Acute (2) Hypertension ICD Code: I10 Status: Chronic (3) Major neurocognitive disorder due to vascular disease, without behavioral disturbance, severe ICD Code: F01.50 Status: Acute (4) Septic shock ICD Code: A41.9 Status: Resolved (5) Hydrocephalus ICD Code: G91.9 Status: Acute (6) Intracranial hemorrhage ICD Code: I62.9 Status: Acute (7) Major neurocognitive disorder as late effect of traumatic brain injury with behavioral disturbance ICD Code: S06.9X9S Status: Acute (8) Encephalopathy ICD Code: G93.40 Status: Acute (9) Sepsis ICD Code: A41.9 Status: Resolved (10) Pneumonia ICD Code: J18.9 Status: Acute (11) Protein-calorie malnutrition, mild ICD Code: E44.1 Status: Acute (12) Acute respiratory failure with hypoxia and hypercarbia ICD Code: J96.01 Status: Acute Assessment and Plan 51 yo M with aneurysmal SAH, s/p basilar artery coiling 10/05; with hydrocephalus s/p shunt on 11/24/[address] Eaton. Viridans strep in CSF culture contaminant per ID and Dr Mace s/p Trach 10/23 and PEG 10/24. Had Enterobacter in the sputum. Patient decannulated on 12/04/16. Aneurysmal subarachnoid hemorrhage, occurred on 10/05/16 Encephalopathy secondary to above. Possible cerebral salt wasting + Streptococcus viridans in the CSF from broth only, no growth on original solid media - Appreciate neurosurgery following, appreciate recommendations. - Continue Keppra for seizure prophylaxis. - Status post SENIOR INTERNATIONAL TAX MANAGER shunt on 11/24/2016. - Continue Florinef 0.2mg PO Q12h and sodium chloride 2 gram tablets PO daily. - Per neurosurgery, likely a contaminant. Infectious disease signed off for now. Patient asymptomatic, monitor for altered mental status, fevers or leukocytosis. If occurs, will need repeat CSF cultures. C diff negative. Acute hypoxic, hypercarbic respiratory failure: Status post intubation. Tracheostomy placed on 10/23/16. Supplemental oxygen as needed. DuoNeondina scheduled and PRN. Pulmonary following, appreciate input. Patient decannulated self 12/04/16, doing well on RA. Mild acute protein calorie malnutrition: Continue Jevity 1.5 at 60ml/hr per dietary recommendations. Pneumonia: Previously on Cefepime, Azactam and Vanco, completed course. C. difficile colitis: Previously on Flagyl, end date 11/30. Repeat C. difficile studies are negative. Hydrocephalus: Repeat head CT unchanged. SENIOR INTERNATIONAL TAX MANAGER shunt placement today. DVT prophylaxis: SCDs/YOUSIF hose. Lovenox 40 mg sq Q24hr. GI prophylaxis: Continue Protonix 40 mg IV daily. Case discussed with patient, nursing and Dr. Cooper. Discharge Planning Pending [facility] and medicaid for placement. Problem Qualifiers (1) Hypertension: Qualified Code: I10 - Essential hypertension Dariela Del Cid Dec 05, 2016 10:40 Adele Cooper MD Dec 05, 2016 18:32
--- NOTE | 2016-12-05 11:16 | HHI.NSPN ---
(Meir Sánchez) History Chief Complaint: Some pain to the head (Meir Sánchez) Interval History 11/19: Patient wake this morning and fidgeting in bed. Nursing reports that during the night the patient was very agitated and pulling at his lines and remains restrained due to this. He receives Seroquel at 0900 and 1200 daily. He does follow commands. 11/20: Patient asleep but opens eyes to verbal stimuli. He does follow commands although he is fidgeting in bed and attempting to get out by himself. 11/21: Patient awake & alert in cardiac chair. He does verbalise and denies any complaint. He is following commands. Nursing reported that he stood 3 times this morning with Therapy. He went for a repeat CT brain this morning which demonstrated stable ventriculomegaly. 11/22: The patient is asleep in bed. He does not open his eyes but does attempt to verbalise when seen. He is following commands. 11/23: The patient is awake & alert. He follows commands and attempts to verbalise. 11/24: The patient is awake. He is restless in the bed at times. He does follow commands and is able to vocalise some. 11/25: The patient is awake & alert, fidgeting in bed as usual. He does follow commands and shakes his head no when asked if he has a headache. He went for a TROLLEY CAR OPERATOR shunt yesterday afternoon. 11/30: The patient is awake & alert. He does follow commands. He complains of a headache and pain to the trach. 12/02: The patient was seen to be alert & impulsive prior to being examined this morning. He kept trying to get up out of bed even though there was a sitter with him. When seen the patient did state that he had a headache but no nausea. 12/03: The patient is seen with Dr Mace this morning. He has had a bowel movement in the bed. When asked he does mouth he has some pain to the head. He is disoriented, when asked where he was he said at the doc ([facility]?) but did not answer yes when asked if he was in the hospital. (Meir Sánchez) System Review Comments Unable to obtain due to patient having trach in and limited ability to read his lips. He does say he has some pain to the head. (Meir Sánchez) Exam Results Vital Signs Date Time Temp Pulse Resp B/P Pulse Ox O2 Delivery O2 Flow Rate FiO2 12/05/16 07:53 95 21 12/05/16 04:00 87 12/05/16 04:00 96.5 24 152/82 12/04/16 19:00 Room Air 12/02/16 07:00 6.00 Intake and Output 12/04/16 12/04/16 12/05/16 08:00 16:00 00:00 Intake Total 533 ml 592 ml 556 ml Output Total 150 ml Balance 533 ml 442 ml 556 ml (Meir Sánchez) Physical Examination HEENT: Right parietal & right frontoparietal surgical incisions well- approximated with sutures, no evident drainage, erythema or streaking. Neck: Active ROM, no nuchal rigidity, no JVD, trached. Respiratory: CTAB w/o W/R/R, equal excursion, non-laboured, trached & on trach collar. Cardiovascular: S1S2 w/RRR w/o M/G/R, radial & pedal pulses 2+ bilaterally, cap refill < 2 sec. Monitor is sinus tachycardia (low 100s) w/o any ectopy noted Gastrointestinal: Abdomen soft, nontender, positive bowel sounds, PEG tube w/ enteral feeds. RUQ surgical incision well-approximated with skin adhesive, no evident drainage, erythema or streaking evident. Neurological: Awake & alert Does mouth a few words in response to questions with some verbalisation Follows simple commands Moving all extremities Sensation to light touch grossly intact to all extremities Motor strength 5/5 to all major flexion & extension muscle groups (Meir Sánchez) Medical Decision Making Impression and Plan Impression: 1. 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 Hydrocephalus Postoperative CT scan reveals decreasing size of ventricles. Neurologic exam is stable following TROLLEY CAR OPERATOR shunt placement As not is being completed the patient has been decannulated and a dressing placed over the trach site. He is able to verbalise. Initially the patient did not know he was in a hospital when seen but was able to say he was in a hospital after the trach was removed. When asked what year it was he said 1998 and that it was August. He thought Giovanny Larose was still the president. POD #10 () s/p: TROLLEY CAR OPERATOR shunt placement Plan: Cognitive/speech therapy eval & tx Activity OOB to cardiac chair Continue PT & OT Continue abx per Surgical Saw Straightener Howie for [place] from NSGY standpoint Ulcer prophylaxis Keep SBP between 120-160 mm Hg He is stable for transfer from the intensive surgical care unit from a neurosurgical standpoint. We will follow him intermittently in the hospital Remove sutures from right-sided surgical insertions Swallow eval (Meir Sánchez) Attending Statement I have personally seen and examined the patient on the date of this note. Pertinent documentation and study results have been reviewed by the undersigned. I have personally developed the treatment plan and performed medical decision making. Agree with findings, exam, and treatment plan as noted above. Neurologic exam remained stable. Incision is healing well. (Gino Mace MD) Meir Sánchez Dec 05, 2016 11:16 Gino Mace MD Dec 07, 2016 18:35
--- NOTE | 2016-12-05 18:32 | HHI.PR ---
Subjective Remarks 51 YOWM with TBI,RF,Trach On trach collar Mod amount of trach secretions More awake, strong cough No Fever Doing well on RA trach site healing Objective Vital Signs Vital Signs Date Time Temp Pulse Resp B/P Pulse Ox O2 Delivery O2 Flow Rate FiO2 12/05/16 16:00 98.3 79 17 142/82 97 12/05/16 16:00 79 12/05/16 12:00 98.6 102 20 131/82 95 12/05/16 12:00 102 12/05/16 08:00 101 12/05/16 08:00 98.6 101 26 142/82 96 12/05/16 07:53 95 21 12/05/16 07:00 96 Room Air 12/05/16 04:00 87 12/05/16 04:00 96.5 87 24 152/82 98 12/05/16 02:00 87 12/05/16 02:00 12/05/16 00:00 98.1 95 24 144/82 95 12/05/16 00:00 95 12/04/16 20:00 94 12/04/16 20:00 98.2 94 19 138/88 96 12/04/16 19:44 95 12/04/16 19:00 96 Room Air I/O 12/04/16 12/04/16 12/04/16 12/05/16 12/05/16 12/05/16 07:00 15:00 23:00 07:00 15:00 23:00 Intake Total 533 ml 592 ml 556 ml 569 ml 564 ml Output Total 150 ml Balance 533 ml 442 ml 556 ml 569 ml 564 ml IV Total 0 ml 0 ml Tube Feeding 413 ml 472 ml 436 ml 529 ml 464 ml Tube Irrigant 120 ml 120 ml 120 ml 40 ml 100 ml Output Urine Total 150 ml # Voids 4 2 1 2 3 # Bowel Movements 0 0 0 1 1 Result Diagram: 12/04/1631612/04/16316 Objective Remarks GENERAL: WBWN male, on Trach collar SKIN: Warm and dry. HEAD: Normocephalic. EYES: No scleral icterus. No injection or drainage. NECK: Supple, trachea midline. No JVD or lymphadenopathy. CARDIOVASCULAR: Regular rate and rhythm without murmurs, gallops, or rubs. RESPIRATORY: Breath sounds equal bilaterally. No accessory muscle use. GASTROINTESTINAL: Abdomen soft, non-tender, nondistended. PEG tube in place MUSCULOSKELETAL: No cyanosis, or edema. BACK: Nontender without obvious deformity. No CVA tenderness. A/P Assessment and Plan RF, s/p Trach remoal Intracranial bleed Hydrocephalous HTN C.diff positive PLAN: Cont Flagyl Secretions decreased Stable on RA Trach site care. Renard Madrid RN, MD Dec 05, 2016 18:32
[2016-12-05] MEDS: ENOXAPARIN SODIUM 40 MG/0.4 ML SYRINGE SQ SCH (21:01)
[2016-12-06] VITALS (9 sets, daily range): BP systolic 117–135; BP diastolic 70–88; PULSE 82–103; RESP 12–26; TEMP 96.7–98.6; O2SAT 92–99
[2016-12-06] MEDS: CHLORHEXIDINE GLUCONATE 2 % 1 PACK (2 CLOTHS) TOP SCH ×2 (03:47→23:10)
[2016-12-06] MEDS: LABETALOL HCL 100 MG TAB PO SCH ×3 (03:47→23:08)
[2016-12-06] MEDS: POTASSIUM CHLORIDE 25 MEQ EFFERVESCENT TAB NG SCH ×2 (08:44→23:09)
[2016-12-06] MEDS: LACTOBACILLUS ACIDOPHILUS TAB PO SCH ×2 (08:44→23:08)
[2016-12-06] MEDS: PANTOPRAZOLE SODIUM 40 MG VIAL IV SCH (08:44)
[2016-12-06] MEDS: SODIUM CHLORIDE 1 GRAM TAB PO SCH (08:44)
[2016-12-06] MEDS: hydrALAZINE HCL 50 MG TAB PO SCH ×2 (08:45→23:08)
[2016-12-06] MEDS: amLODIPine BESYLATE 5 MG TAB PO SCH (08:45)
[2016-12-06] MEDS: QUEtiapine FUMARATE 25 MG TAB PO SCH ×3 (08:45→23:08)
[2016-12-06] MEDS: FLUDROCORTISONE ACETATE 0.1 MG TAB PO SCH ×2 (08:45→23:12)
[2016-12-06] MEDS: PRAVASTATIN SOD 40 MG TAB PO SCH (08:45)
[2016-12-06] MEDS: ARTIFICIAL TEARS OPTH SOLN 15 ML BTL EACH EYE SCH ×3 (09:00→18:05)
[2016-12-06] MEDS: NYSTATIN 100,000 U/GM PWD 15 GM BTL TOPICAL SCH ×3 (09:00→18:05)
--- NOTE | 2016-12-06 09:57 | HHI.PR ---
Subjective Remarks Follow up TBI. Patient seen and examined today. Awake and alert, confused. Sitter at bedside. Patient attempting to get out of bed and pulling at cardiac leads. Denies any new acute complaints. Tolerating TF, no residuals. Diarrhea has slowed down. Afebrile. Spoke to RN no acute complaints overnight. Objective Vitals Vital Signs Date Time Temp Pulse Resp B/P Pulse Ox O2 Delivery O2 Flow Rate FiO2 12/06/16 08:03 97 21 12/06/16 04:00 97.5 96 26 135/88 92 12/06/16 04:00 96 12/06/16 00:00 97.8 92 20 133/78 93 12/06/16 00:00 92 12/05/16 20:00 92 12/05/16 20:00 98.2 92 15 135/85 96 12/05/16 19:29 97 21 12/05/16 19:00 96 Room Air 12/05/16 16:00 98.3 79 17 142/82 97 12/05/16 16:00 79 12/05/16 12:00 98.6 102 20 131/82 95 12/05/16 12:00 102 I/O 12/05/16 12/05/16 12/05/16 12/06/16 12/06/16 12/06/16 07:00 15:00 23:00 07:00 15:00 23:00 Intake Total 569 ml 564 ml 303 ml 492 ml Output Total 150 ml Balance 569 ml 564 ml 153 ml 492 ml Tube Feeding 529 ml 464 ml 183 ml 432 ml Tube Irrigant 40 ml 100 ml 120 ml 60 ml Output Urine Total 150 ml # Voids 2 3 3 3 # Bowel Movements 1 1 0 0 Result Diagram: 12/04/167 12/04/16 0317 Imaging Last Impressions Abdomen X-Ray 11/28/16 0000 Signed Impressions: Service Date/Time: Monday, November 28, 2016 16:00 - CONCLUSION: 1. No evidence of bowel obstruction, ileus or perforation. 2. Degenerative changes and scoliosis of the thoracolumbar spine. 3. Degenerative changes involving the hip joints bilaterally. Juan Worley MD Head CT 11/24/16 0000 Signed Impressions: Service Date/Time: October 22:29 - CONCLUSION: Patient is now shunted. Normal ventricular size. No bleed or other acute complication. Tim Hammonds MD Chest X-Ray 11/01/16 0600 Signed Impressions: Service Date/Time: Tuesday, November 01, 2016 04:37 - CONCLUSION: 1. No acute cardiopulmonary disease. Trevin De León MD Transcranial Doppler Study Complete 10/26/16 0700 Signed Impressions: Service Date/Time: Wednesday, October 26, 2016 08:20 - CONCLUSION: Minimal interval improvement with no evidence for vasospasm. Christian Song MD FACR Neck CTA 10/19/16 0000 Signed Impressions: Service Date/Time: Wednesday, October 19, 2016 14:19 - CONCLUSION: Negative for dissection or significant stenosis. Christian Song MD FACR Head CTA 10/19/16 0000 Signed Impressions: Service Date/Time: Wednesday, October 19, 2016 14:19 - CONCLUSION: 1. Interval development of significant vasospasm in the left MCA and SRI territories. 2. Mild vasospasm in the basilar artery.. Gume Mckeon MD Cerebral Arteriogram 10/19/16 0000 Signed Impressions: Service Date/Time: Wednesday, October 19, 2016 16:06 - CONCLUSION: 1. Vasospasm in the left MCA and SRI territories 2. Spasmolytic infusion, left internal carotid artery as above.. 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 Gume Mckeon MD Pelvis X-Ray 10/05/16109 Signed Impressions: Service Date/Time: Wednesday, October 05, 2016 01:22 - CONCLUSION: Unremarkable examination of the pelvis. Ruben Acuña Jr., MD Chest CT 10/05/16109 Signed Impressions: Service Date/Time: Wednesday, October 05, 2016 01:46 - CONCLUSION: 1. No acute intrathoracic abnormality. 2. Bibasilar atelectasis. 3. Cardiomegaly. 4. Prior granulomatous disease. Ruben Acuña Jr., MD Cervical Spine CT 10/05/16109 Signed Impressions: Service Date/Time: Wednesday, October 05, 2016 01:40 - CONCLUSION: 1. No fracture or dislocation. 2. Multilevel degenerative changes. Ruben Acuña Jr., MD Abdomen/Pelvis CT 10/05/16 0110 Signed Impressions: Service Date/Time: Wednesday, October 05, 2016 01:46 - CONCLUSION: 1. No acute trauma. 2. Rounded area of decreased density involving the pancreatic head. I cannot completely exclude pancreatic head mass. At some point MRI of the pancreas is suggested to further evaluate. 3. Focal area of poor enhancement involving the left kidney. This may relate to an area of parenchymal scarring. I cannot completely exclude a mass. This can be further assessed with MRI as well. Ruben Acuña Jr., MD Objective Remarks GENERAL: Well-nourished, well-developed male patient, in no apparent distress lying in bed comfortably. Pleasantly confused, oriented x 1. SKIN: No rash. Warm and dry. HEENT: R parietal incision clean ands dry reed in, no drainage. Pupils equal round and reactive. Extraocular motions intact. No scleral icterus. No injection or drainage. Oral mucosa moist. NECK: Trachea midline. Supple. CARDIOVASCULAR: RRR. No murmur appreciated. RESPIRATORY: Clear to auscultation. Breath sounds equal bilaterally. No wheezes , rales, or rhonchi. GASTROINTESTINAL: Abdomen soft, non-tender, nondistended. No guarding. Abdominal binder in place. PEG in place. MUSCULOSKELETAL: Extremities without clubbing, cyanosis, or edema. NEUROLOGICAL: Awake and alert. Moves all 4 extremities, equal no weakness noted. 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 ICD Code: I60.8 Status: Acute (2) Hypertension ICD Code: I10 Status: Chronic (3) Major neurocognitive disorder due to vascular disease, without behavioral disturbance, severe ICD Code: F01.50 Status: Acute (4) Septic shock ICD Code: A41.9 Status: Resolved (5) Hydrocephalus ICD Code: G91.9 Status: Acute (6) Intracranial hemorrhage ICD Code: I62.9 Status: Acute (7) Major neurocognitive disorder as late effect of traumatic brain injury with behavioral disturbance ICD Code: S06.9X9S Status: Acute (8) Encephalopathy ICD Code: G93.40 Status: Acute (9) Sepsis ICD Code: A41.9 Status: Resolved (10) Pneumonia ICD Code: J18.9 Status: Acute (11) Protein-calorie malnutrition, mild ICD Code: E44.1 Status: Acute (12) Acute respiratory failure with hypoxia and hypercarbia ICD Code: J96.01 Status: Acute Assessment and Plan 51 yo M with aneurysmal SAH, s/p basilar artery coiling 10/05; with hydrocephalus s/p shunt on 11/24/[address] Eaton. Viridans strep in CSF culture contaminant per ID and Dr Mace s/p Trach 10/23 and PEG 10/24. Had Enterobacter in the sputum. Patient decannulated on 12/04/16. Aneurysmal subarachnoid hemorrhage, occurred on 10/05/16 Encephalopathy secondary to above. Possible cerebral salt wasting + Streptococcus viridans in the CSF from broth only, no growth on original solid media - Appreciate neurosurgery following, appreciate recommendations. - Continue Keppra for seizure prophylaxis. - Status post SWITCHBOARD OPERATOR HELPER shunt on 11/24/2016. - Continue Florinef 0.2mg PO Q12h and sodium chloride 2 gram tablets PO daily. - Per neurosurgery, likely a contaminant. Infectious disease signed off for now. Patient asymptomatic, monitor for altered mental status, fevers or leukocytosis. If occurs, will need repeat CSF cultures. C diff negative. Acute hypoxic, hypercarbic respiratory failure: Status post intubation. Tracheostomy placed on 10/23/16. Supplemental oxygen as needed. Evelyn scheduled and PRN. Pulmonary following, appreciate input. Patient decannulated self 12/04/16, doing well on RA. Mild acute protein calorie malnutrition: Continue Jevity 1.5 at 60ml/hr per dietary recommendations. Pneumonia: Previously on Cefepime, Azactam and Vanco, completed course. C. difficile colitis: Previously on Flagyl, end date 11/30. Repeat C. difficile studies are negative. May dc isolation. Hydrocephalus: Repeat head CT unchanged. SWITCHBOARD OPERATOR HELPER shunt placement 11/24/16 DVT prophylaxis: SCDs/YOUSIF hose. Lovenox 40 mg sq Q24hr. GI prophylaxis: Continue Protonix 40 mg IV daily. Case discussed with patient, nursing and Dr. Cosma. Discharge Planning Pending SSI and medicaid for placement. Problem Qualifiers (1) Hypertension: Qualified Code: I10 - Essential hypertension Dariela Del Cid Dec 06, 2016 09:57
--- NOTE | 2016-12-06 19:26 | HHI.PR ---
Subjective Remarks 51 YOWM with TBI,RF,Trach More awake, strong cough No Fever Doing well on RA trach site healing Alert, awake, follows commands Objective Vital Signs Vital Signs Date Time Temp Pulse Resp B/P Pulse Ox O2 Delivery O2 Flow Rate FiO2 12/06/16 17:30 96.7 94 17 126/79 97 12/06/16 16:00 98.6 103 12 132/83 96 12/06/16 16:00 103 12/06/16 12:00 100 12/06/16 12:00 98.4 100 18 117/70 99 12/06/16 08:03 97 21 12/06/16 08:00 98.0 82 22 134/78 92 12/06/16 08:00 82 12/06/16 08:00 Room Air 12/06/16 04:00 97.5 96 26 135/88 92 12/06/16 04:00 96 12/06/16 00:00 97.8 92 20 133/78 93 12/06/16 00:00 92 12/05/16 20:00 92 12/05/16 20:00 98.2 92 15 135/85 96 12/05/16 19:29 97 21 I/O 12/05/16 12/05/16 12/05/16 12/06/16 12/06/16 12/06/16 07:00 15:00 23:00 07:00 15:00 23:00 Intake Total 569 ml 564 ml 303 ml 492 ml 501 ml Output Total 150 ml Balance 569 ml 564 ml 153 ml 492 ml 501 ml Tube Feeding 529 ml 464 ml 183 ml 432 ml 401 ml Tube Irrigant 40 ml 100 ml 120 ml 60 ml 100 ml Output Urine Total 150 ml # Voids 2 3 3 3 2 # Bowel Movements 1 1 0 0 0 Result Diagram: 12/04/1631612/04/16316 Objective Remarks GENERAL: WBWN male, on Trach collar SKIN: Warm and dry. HEAD: Normocephalic. EYES: No scleral icterus. No injection or drainage. NECK: Supple, trachea midline. No JVD or lymphadenopathy. CARDIOVASCULAR: Regular rate and rhythm without murmurs, gallops, or rubs. RESPIRATORY: Breath sounds equal bilaterally. No accessory muscle use. GASTROINTESTINAL: Abdomen soft, non-tender, nondistended. PEG tube in place MUSCULOSKELETAL: No cyanosis, or edema. BACK: Nontender without obvious deformity. No CVA tenderness. A/P Assessment and Plan RF, s/p Trach remoal Intracranial bleed Hydrocephalous HTN C.diff positive PLAN: Cont Flagyl Secretions decreased Stable on RA Trach site care. Renard Madrid RN, MD Dec 06, 2016 19:26
[2016-12-06] MEDS: ENOXAPARIN SODIUM 40 MG/0.4 ML SYRINGE SQ SCH (23:10)
[2016-12-07] VITALS (9 sets, daily range): BP systolic 125–156; BP diastolic 76–89; PULSE 88–102; RESP 16–20; TEMP 95.9–99.1; O2SAT 94–100
[2016-12-07] MEDS: LABETALOL HCL 100 MG TAB PO SCH ×3 (04:41→22:43)
[2016-12-07] MEDS: QUEtiapine FUMARATE 25 MG TAB PO SCH ×3 (08:51→22:43)
[2016-12-07] MEDS: PRAVASTATIN SOD 40 MG TAB PO SCH (08:51)
[2016-12-07] MEDS: FLUDROCORTISONE ACETATE 0.1 MG TAB PO SCH ×2 (08:51→22:42)
[2016-12-07] MEDS: PANTOPRAZOLE SODIUM 40 MG VIAL IV SCH (08:51)
[2016-12-07] MEDS: LACTOBACILLUS ACIDOPHILUS TAB PO SCH ×2 (08:52→22:43)
[2016-12-07] MEDS: SODIUM CHLORIDE 1 GRAM TAB PO SCH (08:52)
[2016-12-07] MEDS: amLODIPine BESYLATE 5 MG TAB PO SCH (08:52)
[2016-12-07] MEDS: POTASSIUM CHLORIDE 25 MEQ EFFERVESCENT TAB NG SCH ×2 (08:52→22:41)
[2016-12-07] MEDS: hydrALAZINE HCL 50 MG TAB PO SCH ×2 (08:52→22:42)
[2016-12-07] MEDS: NYSTATIN 100,000 U/GM PWD 15 GM BTL TOPICAL SCH ×3 (08:59→17:26)
[2016-12-07] MEDS: ARTIFICIAL TEARS OPTH SOLN 15 ML BTL EACH EYE SCH ×3 (08:59→17:26)
--- NOTE | 2016-12-07 11:29 | HHI.NSPN ---
(Meir Sánchez) History Chief Complaint: Pain to right side of head (Meir Sánchez) Interval History 11/19: Patient wake this morning and fidgeting in bed. Nursing reports that during the night the patient was very agitated and pulling at his lines and remains restrained due to this. He receives Seroquel at 0900 and 1200 daily. He does follow commands. 11/20: Patient asleep but opens eyes to verbal stimuli. He does follow commands although he is fidgeting in bed and attempting to get out by himself. 11/21: Patient awake & alert in cardiac chair. He does verbalise and denies any complaint. He is following commands. Nursing reported that he stood 3 times this morning with Therapy. He went for a repeat CT brain this morning which demonstrated stable ventriculomegaly. 11/22: The patient is asleep in bed. He does not open his eyes but does attempt to verbalise when seen. He is following commands. 11/23: The patient is awake & alert. He follows commands and attempts to verbalise. 11/24: The patient is awake. He is restless in the bed at times. He does follow commands and is able to vocalise some. 11/25: The patient is awake & alert, fidgeting in bed as usual. He does follow commands and shakes his head no when asked if he has a headache. He went for a INSTRUCTIONAL TECHNOLOGY FACILITATOR shunt yesterday afternoon. 11/30: The patient is awake & alert. He does follow commands. He complains of a headache and pain to the trach. 12/02: The patient was seen to be alert & impulsive prior to being examined this morning. He kept trying to get up out of bed even though there was a sitter with him. When seen the patient did state that he had a headache but no nausea. 12/03: The patient is seen with Dr Mace this morning. He has had a bowel movement in the bed. When asked he does mouth he has some pain to the head. He is disoriented, when asked where he was he said at the doc ([facility]?) but did not answer yes when asked if he was in the hospital. 12/05: Patient initially seen with Dr Mace this morning. He denied any headache but had some pain to the right side of the head. Trauma notified this practitioner that the patient was complaining of a snowball effect in the peripheral left eye with fog centrally. When seen again the patient stated he had double vision earlier after doing something but no then. He denied any blurry vision or other visual problem and stated his vision was normal. After further questioning the patient states that intermittently when he tries to "upgrade" his vision he sees double/blurry. Nursing reports that the patient has not had any visual complaints for her. (Meir Sánchez) System Review Comments Head: The patient complains of some pain to the right side of the head. HEENT: The patient states he had double vision earlier but not at present. Trauma notified this practitioner that the patient complained of snowball effect in peripheral left eye with fog centrally. After further questioning the patient did endorse intermittent double/blurry vision when he tries to "upgrade " his vision. Respiratory: The patient denies any shortness of breath. Cardiovascular: The patient denies any chest pain, palpitations or irregular heartbeat. Gastrointestinal: The patient denies any abdominal pain or nausea. Extremities: The patient denies any arm or leg pain or weakness. Neurological: The patient complains of pain to the right side of the head but denied any headache. He denies any dizziness, numbness or tingling. (Meir Sánchez) Exam Results Vital Signs Date Time Temp Pulse Resp B/P Pulse Ox O2 Delivery O2 Flow Rate FiO2 12/07/16 11:03 99 21 12/07/16 09:33 92 12/07/16 09:10 Room Air 12/07/16 09:05 97.1 20 155/89 Intake and Output 12/06/16 12/06/16 12/07/16 08:00 16:00 00:00 Intake Total 492 ml 501 ml Balance 492 ml 501 ml (Meir Sánchez) Physical Examination HEENT: Right parietal & right frontoparietal surgical incisions well- approximated with sutures, no evident drainage, erythema or streaking. PERRLA, EOM intact. Neck: Active ROM, no nuchal rigidity, no JVD, trached. Respiratory: CTAB w/o W/R/R, equal excursion, non-laboured, on RA, trach site covered. Cardiovascular: S1S2 w/RRR w/o M/G/R, radial & pedal pulses 2+ bilaterally, cap refill < 2 sec. Gastrointestinal: Abdomen soft, nontender, positive bowel sounds, PEG tube clamped. RUQ surgical incision well-approximated with skin adhesive, no evident drainage, erythema or streaking evident. Neurological: Awake & alert Oriented to self & place but confused as to date. Follows simple commands Moving all extremities Sensation to light touch grossly intact to all extremities Motor strength 5/5 to all major flexion & extension muscle groups (Meir Sánchez) Medical Decision Making Impression and Plan Impression: 1. 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 Hydrocephalus Postoperative CT scan reveals decreasing size of ventricles. Neurologic exam is stable following INSTRUCTIONAL TECHNOLOGY FACILITATOR shunt placement Intermittent periods of double/blurry vision POD #12 () s/p: INSTRUCTIONAL TECHNOLOGY FACILITATOR shunt placement Plan: Cognitive/speech therapy eval & tx Activity OOB to cardiac chair Continue PT & OT Okay for Lovenox from NSGY standpoint Ulcer prophylaxis Keep SBP between 120-160 mm Hg Diet per ST We will follow him intermittently in the hospital (Meir Sánchez) Attending Statement I have personally seen and examined the patient on the date of this note. Pertinent documentation and study results have been reviewed by the undersigned. I have personally developed the treatment plan and performed medical decision making. Agree with findings, exam, and treatment plan as noted above. Patient with some visual complaints today. No definite change in neurologic exam. Appears neurologically stable Possible ophthalmology evaluation if further visual complaints. (Gino Mace MD) Meir Sánchez Dec 07, 2016 11:28 Gino Mace MD Dec 07, 2016 18:36
--- NOTE | 2016-12-07 12:39 | HHI.PR ---
Subjective Remarks Follow up TBI. Patient seen and examined today. Patient awake lying in bed, oriented to person and place. Follows all commands appropriately. Patient does state that he has a snowball effect in left peripheral eye with a fog appearance in his left central vision. Spoke to RN at bedside with no known complaints of vision changes overnight. Call placed to neurosurgery GROUP LEADER and updated regarding complaints. Patient reassessed with no similar complaints. No new orders from neurosurgery standpoint, will continue to monitor. Otherwise, patient denies any recent fever, chills, headache, dizziness, cough, shortness of breath, abdominal pain, nausea, vomiting, or dysuria. Objective Vitals Vital Signs Date Time Temp Pulse Resp B/P Pulse Ox O2 Delivery O2 Flow Rate FiO2 12/07/16 12:14 95.9 102 20 136/84 100 12/07/16 12:06 97.9 99 17 135/81 95 12/07/16 11:03 99 21 12/07/16 09:33 92 12/07/16 09:10 99 Room Air 12/07/16 09:05 97.1 88 20 155/89 99 12/07/16 06:13 98.2 98 17 125/78 96 12/07/16 00:15 98.0 100 17 156/82 96 12/06/16 20:46 96 21 12/06/16 20:36 97.7 98 17 127/81 96 12/06/16 17:30 96.7 94 17 126/79 97 12/06/16 16:00 98.6 103 12 132/83 96 12/06/16 16:00 103 I/O 12/06/16 12/06/16 12/06/16 12/07/16 12/07/16 12/07/16 07:00 15:00 23:00 07:00 15:00 23:00 Intake Total 492 ml 501 ml 690 ml Balance 492 ml 501 ml 690 ml Tube Feeding 432 ml 401 ml 690 ml Tube Irrigant 60 ml 100 ml # Voids 3 2 3 3 # Bowel Movements 0 0 1 Result Diagram: 12/04/167 12/04/167 Imaging Last Impressions Abdomen X-Ray 11/28/16 0000 Signed Impressions: Service Date/Time: Monday, November 28, 2016 16:00 - CONCLUSION: 1. No evidence of bowel obstruction, ileus or perforation. 2. Degenerative changes and scoliosis of the thoracolumbar spine. 3. Degenerative changes involving the hip joints bilaterally. Juan Worley MD Head CT 11/24/16 0000 Signed Impressions: Service Date/Time: October 22:29 - CONCLUSION: Patient is now shunted. Normal ventricular size. No bleed or other acute complication. Tim Hammonds MD Chest X-Ray 11/01/16 0600 Signed Impressions: Service Date/Time: Tuesday, November 01, 2016 04:37 - CONCLUSION: 1. No acute cardiopulmonary disease. Trevin De León MD Transcranial Doppler Study Complete 10/26/16 0700 Signed Impressions: Service Date/Time: Wednesday, October 26, 2016 08:20 - CONCLUSION: Minimal interval improvement with no evidence for vasospasm. Christian Song MD FACR Neck CTA 10/19/16 0000 Signed Impressions: Service Date/Time: Wednesday, October 19, 2016 14:19 - CONCLUSION: Negative for dissection or significant stenosis. Christian Song MD FACR Head CTA 10/19/16 0000 Signed Impressions: Service Date/Time: Wednesday, October 19, 2016 14:19 - CONCLUSION: 1. Interval development of significant vasospasm in the left MCA and SRI territories. 2. Mild vasospasm in the basilar artery.. Gume Mckeon MD Cerebral Arteriogram 10/19/16 0000 Signed Impressions: Service Date/Time: Wednesday, October 19, 2016 16:06 - CONCLUSION: 1. Vasospasm in the left MCA and SRI territories 2. Spasmolytic infusion, left internal carotid artery as above.. 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 Gume Mckeon MD Pelvis X-Ray 10/05/16 0110 Signed Impressions: Service Date/Time: Wednesday, October 05, 2016 01:22 - CONCLUSION: Unremarkable examination of the pelvis. Ruben Acuña Jr., MD Chest CT 10/05/16 0110 Signed Impressions: Service Date/Time: Wednesday, October 05, 2016 01:46 - CONCLUSION: 1. No acute intrathoracic abnormality. 2. Bibasilar atelectasis. 3. Cardiomegaly. 4. Prior granulomatous disease. Ruben Acuña Jr., MD Cervical Spine CT 10/05/16109 Signed Impressions: Service Date/Time: Wednesday, October 05, 2016 01:40 - CONCLUSION: 1. No fracture or dislocation. 2. Multilevel degenerative changes. Ruben Acuña Jr., MD Abdomen/Pelvis CT 10/05/16109 Signed Impressions: Service Date/Time: Wednesday, October 05, 2016 01:46 - CONCLUSION: 1. No acute trauma. 2. Rounded area of decreased density involving the pancreatic head. I cannot completely exclude pancreatic head mass. At some point MRI of the pancreas is suggested to further evaluate. 3. Focal area of poor enhancement involving the left kidney. This may relate to an area of parenchymal scarring. I cannot completely exclude a mass. This can be further assessed with MRI as well. Ruben Acuña Jr., MD Objective Remarks GENERAL: Well-nourished, well-developed male patient, in no apparent distress lying in bed comfortably. Pleasantly confused, oriented x 2. SKIN: No rash. Warm and dry. HEENT: R parietal incision clean ands dry reed in, no drainage. Pupils equal round and reactive. Extraocular motions intact. No scleral icterus. No injection or drainage. Oral mucosa moist. NECK: Trachea midline. Supple. CARDIOVASCULAR: RRR. No murmur appreciated. RESPIRATORY: Clear to auscultation. Breath sounds equal bilaterally. No wheezes , rales, or rhonchi. GASTROINTESTINAL: Abdomen soft, non-tender, nondistended. No guarding. Abdominal binder in place. PEG in place. MUSCULOSKELETAL: Extremities without clubbing, cyanosis, or edema. NEUROLOGICAL: Awake and alert. Moves all 4 extremities, equal no weakness noted. 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 ICD Code: I60.8 Status: Acute (2) Hypertension ICD Code: I10 Status: Chronic (3) Major neurocognitive disorder due to vascular disease, without behavioral disturbance, severe ICD Code: F01.50 Status: Acute (4) Septic shock ICD Code: A41.9 Status: Resolved (5) Hydrocephalus ICD Code: G91.9 Status: Acute (6) Intracranial hemorrhage ICD Code: I62.9 Status: Acute (7) Major neurocognitive disorder as late effect of traumatic brain injury with behavioral disturbance ICD Code: S06.9X9S Status: Acute (8) Encephalopathy ICD Code: G93.40 Status: Acute (9) Sepsis ICD Code: A41.9 Status: Resolved (10) Pneumonia ICD Code: J18.9 Status: Acute (11) Protein-calorie malnutrition, mild ICD Code: E44.1 Status: Acute (12) Acute respiratory failure with hypoxia and hypercarbia ICD Code: J96.01 Status: Acute Assessment and Plan 51 yo M with aneurysmal SAH, s/p basilar artery coiling 10/05; with hydrocephalus s/p shunt on 11/24/[address] Eaton. Viridans strep in CSF culture contaminant per ID and Dr Mace s/p Trach 10/23 and PEG 10/24. Had Enterobacter in the sputum. Patient decannulated on 12/04/16. Aneurysmal subarachnoid hemorrhage, occurred on 10/05/16 Encephalopathy secondary to above. Possible cerebral salt wasting + Streptococcus viridans in the CSF from broth only, no growth on original solid media - Neurosurgery following, appreciate recommendations. New intermittent vision changes this am, but currently denies any complaints. Will continue to follow, neurosurgery updated. - Continue Keppra for seizure prophylaxis. - Status post ELECTRIC GOLF CART REPAIRER shunt on 11/24/2016. - Continue Florinef 0.2mg PO Q12h and sodium chloride 2 gram tablets PO daily. - Per neurosurgery, likely a contaminant. Infectious disease signed off for now. Patient asymptomatic, monitor for altered mental status, fevers or leukocytosis. If occurs, will need repeat CSF cultures. C diff negative. Acute hypoxic, hypercarbic respiratory failure: Status post intubation. Tracheostomy placed on 10/23/16. Supplemental oxygen as needed. DuoNebs scheduled and PRN. Pulmonary following, appreciate input. Patient decannulated self 12/04/16, doing well on RA. Trach dressing c/d/i. Mild acute protein calorie malnutrition: Increase Jevity 1.5 to 70ml/hr per dietary recommendations with tray. Monitor intake. Pneumonia: Previously on Cefepime, Azactam and Vanco, completed course. C. difficile colitis: Previously on Flagyl, end date 11/30. Repeat C. difficile studies are negative. May dc isolation. Hydrocephalus: Repeat head CT unchanged. ELECTRIC GOLF CART REPAIRER shunt placement 11/24/16 DVT prophylaxis: SCDs/YOUSIF hose. Lovenox 40 mg sq Q24hr. GI prophylaxis: Continue Protonix 40 mg IV daily. Case discussed with patient, nursing and Dr. Cooper. Discharge Planning Pending SSI and medicaid for placement. Problem Qualifiers (1) Hypertension: Qualified Code: I10 - Essential hypertension Dariela Del Cid Dec 07, 2016 12:39
--- NOTE | 2016-12-07 18:29 | HHI.PR ---
Subjective Remarks 51 YOWM with TBI,RF,Trach More awake, strong cough No Fever Doing well on RA trach site healing Alert, awake, follows commands Tolerates PO diet. Objective Vital Signs Vital Signs Date Time Temp Pulse Resp B/P Pulse Ox O2 Delivery O2 Flow Rate FiO2 12/07/16 16:51 97.2 91 20 134/79 100 12/07/16 12:14 95.9 102 20 136/84 100 12/07/16 12:06 97.9 99 17 135/81 95 12/07/16 11:03 99 21 12/07/16 09:33 92 12/07/16 09:10 99 Room Air 12/07/16 09:05 97.1 88 20 155/89 99 12/07/16 06:13 98.2 98 17 125/78 96 12/07/16 00:15 98.0 100 17 156/82 96 12/06/16 20:46 96 21 12/06/16 20:36 97.7 98 17 127/81 96 I/O 12/06/16 12/06/16 12/06/16 12/07/16 12/07/16 12/07/16 07:00 15:00 23:00 07:00 15:00 23:00 Intake Total 492 ml 501 ml 690 ml Balance 492 ml 501 ml 690 ml Tube Feeding 432 ml 401 ml 690 ml Tube Irrigant 60 ml 100 ml # Voids 3 2 3 3 1 # Bowel Movements 0 0 1 Result Diagram: 12/04/1631612/04/16316 Objective Remarks GENERAL: WBWN male, on Trach collar SKIN: Warm and dry. HEAD: Normocephalic. EYES: No scleral icterus. No injection or drainage. NECK: Supple, trachea midline. No JVD or lymphadenopathy. CARDIOVASCULAR: Regular rate and rhythm without murmurs, gallops, or rubs. RESPIRATORY: Breath sounds equal bilaterally. No accessory muscle use. GASTROINTESTINAL: Abdomen soft, non-tender, nondistended. PEG tube in place MUSCULOSKELETAL: No cyanosis, or edema. BACK: Nontender without obvious deformity. No CVA tenderness. A/P Assessment and Plan RF, s/p Trach remoal Intracranial bleed Hydrocephalous HTN C.diff positive PLAN: Stable on RA Trach site care. LISA Virgen,Renard Shine MD Dec 07, 2016 18:29
[2016-12-07] MEDS: ENOXAPARIN SODIUM 40 MG/0.4 ML SYRINGE SQ SCH (22:41)
[2016-12-07] MEDS: CHLORHEXIDINE GLUCONATE 2 % 1 PACK (2 CLOTHS) TOP SCH (22:43)
[2016-12-08] VITALS (11 sets, daily range): BP systolic 116–141; BP diastolic 76–89; PULSE 84–103; RESP 16–22; TEMP 96.7–98.8; O2SAT 94–98
[2016-12-08] MEDS: CHLORHEXIDINE GLUCONATE 2 % 1 PACK (2 CLOTHS) TOP SCH (04:46)
[2016-12-08] MEDS: LABETALOL HCL 100 MG TAB PO SCH ×3 (05:00→22:15)
[2016-12-08 06:39] LABS: BICARBONATE 27.4 MEQ/L (21.0-32.0); CALCIUM 8.9 MG/DL (8.5-10.1); CREATININE 0.89 MG/DL (0.60-1.30); MAGNESIUM 2.2 MG/DL (1.5-2.5)
[2016-12-08] MEDS ORDERED: POTASSIUM CHLORIDE 25 MEQ EFFERVESCENT TAB PO ONE (08:00)
[2016-12-08] MEDS: SODIUM CHLORIDE 1 GRAM TAB PO SCH (09:54)
[2016-12-08] MEDS: amLODIPine BESYLATE 5 MG TAB PO SCH (09:55)
[2016-12-08] MEDS: QUEtiapine FUMARATE 25 MG TAB PO SCH ×3 (09:55→22:14)
[2016-12-08] MEDS: LACTOBACILLUS ACIDOPHILUS TAB PO SCH ×2 (09:56→22:14)
[2016-12-08] MEDS: PRAVASTATIN SOD 40 MG TAB PO SCH (09:56)
[2016-12-08] MEDS: hydrALAZINE HCL 50 MG TAB PO SCH ×2 (09:56→22:14)
[2016-12-08] MEDS: PANTOPRAZOLE SODIUM 40 MG VIAL IV SCH (09:59)
[2016-12-08] MEDS: POTASSIUM CHLORIDE 25 MEQ EFFERVESCENT TAB NG SCH ×2 (10:10→22:14)
[2016-12-08] MEDS: ARTIFICIAL TEARS OPTH SOLN 15 ML BTL EACH EYE SCH ×3 (10:12→18:50)
[2016-12-08] MEDS: NYSTATIN 100,000 U/GM PWD 15 GM BTL TOPICAL SCH ×3 (10:13→18:00)
[2016-12-08] MEDS: FLUDROCORTISONE ACETATE 0.1 MG TAB PO SCH ×2 (10:18→22:14)
--- NOTE | 2016-12-08 11:01 | HHI.PR ---
Subjective Remarks Follow up TBI. Patient seen and examined today. Patient awake lying in bed comfortably. Oriented x 2. Follows all commands appropriately. Denies any vision change complaints today. Denies any recent fever, chills, headache, dizziness, cough, shortness of breath, abdominal pain, nausea, vomiting, or dysuria. Tolerating PO intake. Spoke to RN and did mention a run of VTACH overnight. Strips reviewed, patient asymptomatic at the time and now currently with no complaints. Will continue cardiac telemetry and monitor. Objective Vitals Vital Signs Date Time Temp Pulse Resp B/P Pulse Ox O2 Delivery O2 Flow Rate FiO2 12/08/16 08:20 98.1 88 18 138/83 95 12/08/16 04:06 97.9 102 16 141/77 98 12/08/16 00:00 98.7 100 16 141/80 95 12/07/16 20:41 99.1 100 16 142/76 94 12/07/16 16:51 97.2 91 20 134/79 100 12/07/16 12:14 95.9 102 20 136/84 100 12/07/16 12:06 97.9 99 17 135/81 95 12/07/16 11:03 99 21 I/O 12/07/16 12/07/16 12/07/16 12/08/16 12/08/16 12/08/16 07:00 15:00 23:00 07:00 15:00 23:00 Intake Total 690 ml 840 ml Balance 690 ml 840 ml Tube Feeding 690 ml 840 ml # Voids 3 1 2 2 # Bowel Movements 1 0 0 Result Diagram: 12/04/16 0317 12/08/16 0552 Imaging Last Impressions Abdomen X-Ray 11/28/16 0000 Signed Impressions: Service Date/Time: Monday, November 28, 2016 16:00 - CONCLUSION: 1. No evidence of bowel obstruction, ileus or perforation. 2. Degenerative changes and scoliosis of the thoracolumbar spine. 3. Degenerative changes involving the hip joints bilaterally. Juan Worley MD Head CT 11/24/16 0000 Signed Impressions: Service Date/Time: October 22:29 - CONCLUSION: Patient is now shunted. Normal ventricular size. No bleed or other acute complication. Tim Hammonds MD Chest X-Ray 11/01/16 0600 Signed Impressions: Service Date/Time: Tuesday, November 01, 2016 04:37 - CONCLUSION: 1. No acute cardiopulmonary disease. Trevin De León MD Transcranial Doppler Study Complete 10/26/16 0700 Signed Impressions: Service Date/Time: Wednesday, October 26, 2016 08:20 - CONCLUSION: Minimal interval improvement with no evidence for vasospasm. Christian Song MD FACR Neck CTA 10/19/16 0000 Signed Impressions: Service Date/Time: Wednesday, October 19, 2016 14:19 - CONCLUSION: Negative for dissection or significant stenosis. Christian Song MD FACR Head CTA 10/19/16 0000 Signed Impressions: Service Date/Time: Wednesday, October 19, 2016 14:19 - CONCLUSION: 1. Interval development of significant vasospasm in the left MCA and SRI territories. 2. Mild vasospasm in the basilar artery.. Gume Mckeon MD Cerebral Arteriogram 10/19/16 0000 Signed Impressions: Service Date/Time: Wednesday, October 19, 2016 16:06 - CONCLUSION: 1. Vasospasm in the left MCA and SRI territories 2. Spasmolytic infusion, left internal carotid artery as above.. 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 Gume Mckeon MD Pelvis X-Ray 10/05/16 011 Signed Impressions: Service Date/Time: Wednesday, October 05, 2016 01:22 - CONCLUSION: Unremarkable examination of the pelvis. Ruben Acuña Jr., MD Chest CT 10/05/16109 Signed Impressions: Service Date/Time: Wednesday, October 05, 2016 01:46 - CONCLUSION: 1. No acute intrathoracic abnormality. 2. Bibasilar atelectasis. 3. Cardiomegaly. 4. Prior granulomatous disease. Ruben Acuña Jr., MD Cervical Spine CT 10/05/16109 Signed Impressions: Service Date/Time: Wednesday, October 05, 2016 01:40 - CONCLUSION: 1. No fracture or dislocation. 2. Multilevel degenerative changes. Ruben Acuña Jr., MD Abdomen/Pelvis CT 10/05/16 0110 Signed Impressions: Service Date/Time: Wednesday, October 05, 2016 01:46 - CONCLUSION: 1. No acute trauma. 2. Rounded area of decreased density involving the pancreatic head. I cannot completely exclude pancreatic head mass. At some point MRI of the pancreas is suggested to further evaluate. 3. Focal area of poor enhancement involving the left kidney. This may relate to an area of parenchymal scarring. I cannot completely exclude a mass. This can be further assessed with MRI as well. Ruben Acuña Jr., MD Objective Remarks GENERAL: Well-nourished, well-developed male patient, in no apparent distress lying in bed comfortably. Pleasantly confused, oriented x 2. SKIN: No rash. Warm and dry. HEENT: R parietal incision clean ands dry reed in, no drainage. Pupils equal round and reactive. Extraocular motions intact. No scleral icterus. No injection or drainage. Oral mucosa moist. NECK: Trachea midline. Supple. CARDIOVASCULAR: RRR. No murmur appreciated. RESPIRATORY: Clear to auscultation. Breath sounds equal bilaterally. No wheezes , rales, or rhonchi. GASTROINTESTINAL: Abdomen soft, non-tender, nondistended. No guarding. Abdominal binder in place. PEG in place. MUSCULOSKELETAL: Extremities without clubbing, cyanosis, or edema. NEUROLOGICAL: Awake and alert. Moves all 4 extremities, equal no weakness noted. 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 ICD Code: I60.8 Status: Acute (2) Hypertension ICD Code: I10 Status: Chronic (3) Major neurocognitive disorder due to vascular disease, without behavioral disturbance, severe ICD Code: F01.50 Status: Acute (4) Septic shock ICD Code: A41.9 Status: Resolved (5) Hydrocephalus ICD Code: G91.9 Status: Acute (6) Intracranial hemorrhage ICD Code: I62.9 Status: Acute (7) Major neurocognitive disorder as late effect of traumatic brain injury with behavioral disturbance ICD Code: S06.9X9S Status: Acute (8) Encephalopathy ICD Code: G93.40 Status: Acute (9) Sepsis ICD Code: A41.9 Status: Resolved (10) Pneumonia ICD Code: J18.9 Status: Acute (11) Protein-calorie malnutrition, mild ICD Code: E44.1 Status: Acute (12) Acute respiratory failure with hypoxia and hypercarbia ICD Code: J96.01 Status: Acute Assessment and Plan 51 yo M with aneurysmal SAH, s/p basilar artery coiling 10/05; with hydrocephalus s/p shunt on 11/24/[address] Eaton. Viridans strep in CSF culture contaminant per ID and Dr Mace s/p Trach 10/23 and PEG 10/24. Had Enterobacter in the sputum. Patient decannulated on 12/04/16. Aneurysmal subarachnoid hemorrhage, occurred on 10/05/16 Encephalopathy secondary to above. Possible cerebral salt wasting + Streptococcus viridans in the CSF from broth only, no growth on original solid media - Neurosurgery following, appreciate recommendations. No vision complaints this am. - Status post COLLATERAL CLERK shunt on 11/24/2016. - Continue Florinef 0.2mg PO Q12h and sodium chloride 2 gram tablets PO daily. - Per neurosurgery, likely a contaminant. Infectious disease signed off for now. Patient asymptomatic, monitor for altered mental status, fevers or leukocytosis. If occurs, will need repeat CSF cultures. C diff negative. Acute hypoxic, hypercarbic respiratory failure: Status post intubation. Tracheostomy placed on 10/23/16. Supplemental oxygen as needed. DuoNebs scheduled and PRN. Pulmonary following, appreciate input. Patient decannulated self 12/04/16, doing well on RA. Trach dressing c/d/i. Mild acute protein calorie malnutrition: Increase Jevity 1.5 to 70ml/hr per dietary recommendations with tray. Monitor intake. Pneumonia: Previously on Cefepime, Azactam and Vanco, completed course. C. difficile colitis: Previously on Flagyl, end date 11/30. Repeat C. difficile studies are negative. Hydrocephalus: Repeat head CT unchanged. COLLATERAL CLERK shunt placement 11/24/16 DVT prophylaxis: SCDs/YOUSIF hose. Lovenox 40 mg sq Q24hr. GI prophylaxis: Continue Protonix 40 mg IV daily. Case discussed with patient, nursing and Dr. Cooper. Discharge Planning Pending SSI and medicaid for placement. Problem Qualifiers (1) Hypertension: Qualified Code: I10 - Essential hypertension Nehemias,Dariela [employer]ILWAY YARD ASSISTANT Dec 08, 2016 11:01 Dariela Del Cid Dec 08, 2016 11:01
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
[2016-12-08] MEDS: ENOXAPARIN SODIUM 40 MG/0.4 ML SYRINGE SQ SCH (22:14)
[2016-12-09] VITALS (8 sets, daily range): BP systolic 118–146; BP diastolic 77–84; PULSE 86–105; RESP 17–22; TEMP 96.9–97.9; O2SAT 93–97
[2016-12-09] MEDS: LABETALOL HCL 100 MG TAB PO SCH ×3 (05:21→21:27)
[2016-12-09] MEDS: ARTIFICIAL TEARS OPTH SOLN 15 ML BTL EACH EYE SCH ×3 (09:00→17:05)
[2016-12-09] MEDS: NYSTATIN 100,000 U/GM PWD 15 GM BTL TOPICAL SCH ×3 (09:00→17:05)
[2016-12-09] MEDS: PRAVASTATIN SOD 40 MG TAB PO SCH (09:18)
[2016-12-09] MEDS: amLODIPine BESYLATE 5 MG TAB PO SCH (09:18)
[2016-12-09] MEDS: POTASSIUM CHLORIDE 25 MEQ EFFERVESCENT TAB NG SCH ×2 (09:19→21:27)
[2016-12-09] MEDS: FLUDROCORTISONE ACETATE 0.1 MG TAB PO SCH ×2 (09:19→21:27)
[2016-12-09] MEDS: SODIUM CHLORIDE 1 GRAM TAB PO SCH (09:20)
[2016-12-09] MEDS: LACTOBACILLUS ACIDOPHILUS TAB PO SCH ×2 (09:20→21:27)
[2016-12-09] MEDS: QUEtiapine FUMARATE 25 MG TAB PO SCH ×3 (09:21→21:27)
[2016-12-09] MEDS: hydrALAZINE HCL 50 MG TAB PO SCH ×2 (09:21→21:27)
[2016-12-09] MEDS: PANTOPRAZOLE SODIUM 40 MG VIAL IV SCH (09:21)
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
[2016-12-09] MEDS ORDERED: LACTULOSE SYRUP 20 GM/30 ML CUP PO PRN (13:45)
[2016-12-09 16:13] LABS: AUTOMATED NEUTROPHIL # 3.8 TH/MM3 (1.8-7.7); BASOPHIL % 0.7 % (0.0-2.0); EOSINOPHIL # 0.6 TH/MM3 (0-0.4); EOSINOPHIL % 9.1 % (0.0-4.0); HEMATOCRIT 33.5 % (39.0-51.0); HEMOGLOBIN 11.3 GM/DL (13.0-17.0); LYMPH % 21.2 % (9.0-44.0); LYMPHOCYTE # 1.3 TH/MM3 (1.0-4.8); MEAN CELL VOLUME 86.9 FL (80.0-100.0); MEAN CORPUSCULAR HEMOGLOBIN 29.4 PG (27.0-34.0); MEAN CORPUSCULAR HGB CONC 33.8 % (32.0-36.0); MEAN PLATELET VOLUME 9.8 FL (7.0-11.0); MONO % 8.3 % (0.0-8.0); MONOCYTE # 0.5 TH/MM3 (0-0.9); NEUT % 60.7 % (16.0-70.0); PLATELET COUNT 264 TH/MM3 (150-450); RED BLOOD COUNT 3.86 MIL/MM3 (4.50-5.90); RED CELL DISTRIBUTION WIDTH 14.7 % (11.6-17.2); WHITE BLOOD COUNT 6.2 TH/MM3 (4.0-11.0)
[2016-12-09 16:39] LABS: ALKALINE PHOSPHATASE 72 U/L (45-117); TOTAL BILIRUBIN ADULT 0.3 MG/DL (0.2-1.0); TOTAL PROTEIN 7.4 GM/DL (6.4-8.2)
[2016-12-09 16:42] LABS: ALT (GPT) 39 U/L (12-78); AST (GOT) 50 U/L (15-37); BICARBONATE 27.9 MEQ/L (21.0-32.0); BLOOD UREA NITROGEN 17 MG/DL (7-18); CALCIUM 8.9 MG/DL (8.5-10.1); CHLORIDE 111 MEQ/L (98-107); CREATININE 0.82 MG/DL (0.60-1.30); GLOMERULAR FILTRATION RATE 99 ML/MIN (>89); GLUCOSE,RANDOM 118 MG/DL (74-106); SODIUM (NA) 146 MEQ/L (136-145)
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
--- NOTE | 2016-12-09 17:54 | EKG ---
Date Performed: 12/08/2016 Time Performed: 13:17:24 PTAGE: 51 years EKG: Sinus rhythm WITH OCCASIONAL VENTRICULAR PREMATURE COMPLEXES MODERATE INTRAVENTRICULAR CONDUCTION DELAY BORDERLIN E ECG PREVIOUS TRACING : 11/20/2016 01.15 Compared to prior tracing no significant change DOCTOR: Sriram Pñia Interpretating Date/Time 12/09/2016 17:52:43
--- NOTE | 2016-12-09 18:24 | RADRPT ---
EXAM DATE/TIME: 12/09/2016 17:36 [facility] COMPARISON: No previous studies available for comparison. INDICATIONS : Hydrocephalus. Aneurysm. RADIATION DOSE: CTDIvol (mGy) MEDICAL HISTORY : Hypertension. Cardiovascular disease Cerebrovascular disease. SURGICAL HISTORY : aneurysm clipping ENCOUNTER: Subsequent ACUITY: 2 months PAIN SCALE: Non-responsive LOCATION: cranial TECHNIQUE: Multiple contiguous axial images were obtained of the head. Using automated exposure control and adj ustment of the mA and/or kV according to patient size, radiation dose was kept as low as reasonably a chievable to obtain optimal diagnostic quality images. FINDINGS: Compare November 24. Right frontal ventriculostomy tube unchanged. Aneurysm clip unchanged. Ventricular si ze has decreased since November 24. No new hemorrhage, mass effect or shift. No new bony abnormality. Para nasal sinuses are clear. CONCLUSION: 1. Right ventriculostomy tube remains in place with decrease in ventricular size since November 24. There is some encephalomalacia around the shunt and a probable small infarct in the left basal ganglia. No new hemorrhage or shift. Tip Harris MD on December 09, 2016 at 18:19 Board Certified Radiologist. This report was verified electronically.
[2016-12-09] MEDS: ENOXAPARIN SODIUM 40 MG/0.4 ML SYRINGE SQ SCH (21:27)
[2016-12-10] VITALS (9 sets, daily range): BP systolic 122–153; BP diastolic 82–91; PULSE 89–101; RESP 18–20; TEMP 96.3–97.4; O2SAT 94–97
[2016-12-10] MEDS: CHLORHEXIDINE GLUCONATE 2 % 1 PACK (2 CLOTHS) TOP SCH (03:27)
[2016-12-10] MEDS: LABETALOL HCL 100 MG TAB PO SCH ×3 (04:49→22:34)
[2016-12-10] MEDS: NYSTATIN 100,000 U/GM PWD 15 GM BTL TOPICAL SCH ×3 (09:00→18:00)
[2016-12-10] MEDS: ARTIFICIAL TEARS OPTH SOLN 15 ML BTL EACH EYE SCH ×3 (09:00→18:00)
[2016-12-10] MEDS: SODIUM CHLORIDE 1 GRAM TAB PO SCH (09:00)
[2016-12-10] MEDS: FLUDROCORTISONE ACETATE 0.1 MG TAB PO SCH ×2 (09:22→22:33)
[2016-12-10] MEDS: hydrALAZINE HCL 50 MG TAB PO SCH ×2 (09:22→22:33)
[2016-12-10] MEDS: amLODIPine BESYLATE 5 MG TAB PO SCH (09:22)
[2016-12-10] MEDS: LACTOBACILLUS ACIDOPHILUS TAB PO SCH ×2 (09:22→22:32)
[2016-12-10] MEDS: PANTOPRAZOLE SODIUM 40 MG VIAL IV SCH (09:24)
[2016-12-10] MEDS: QUEtiapine FUMARATE 25 MG TAB PO SCH ×3 (09:24→22:35)
[2016-12-10] MEDS: POTASSIUM CHLORIDE 25 MEQ EFFERVESCENT TAB NG SCH ×2 (09:25→22:34)
[2016-12-10] MEDS: PRAVASTATIN SOD 40 MG TAB PO SCH (09:25)
[2016-12-10 09:28] LABS: AUTOMATED NEUTROPHIL # 4.6 TH/MM3 (1.8-7.7); BASOPHIL % 0.7 % (0.0-2.0); EOSINOPHIL # 0.6 TH/MM3 (0-0.4); EOSINOPHIL % 8.1 % (0.0-4.0); HEMATOCRIT 32.5 % (39.0-51.0); HEMOGLOBIN 10.4 GM/DL (13.0-17.0); LYMPH % 17.8 % (9.0-44.0); LYMPHOCYTE # 1.2 TH/MM3 (1.0-4.8); MEAN CELL VOLUME 87.7 FL (80.0-100.0); MEAN CORPUSCULAR HGB CONC 31.9 % (32.0-36.0); MEAN PLATELET VOLUME 9.6 FL (7.0-11.0); MONO % 7.4 % (0.0-8.0); MONOCYTE # 0.5 TH/MM3 (0-0.9); PLATELET COUNT 227 TH/MM3 (150-450); RED BLOOD COUNT 3.71 MIL/MM3 (4.50-5.90)
[2016-12-10 10:05] LABS: BICARBONATE 25.3 MEQ/L (21.0-32.0); CALCIUM 8.4 MG/DL (8.5-10.1); CREATININE 0.77 MG/DL (0.60-1.30)
--- NOTE | 2016-12-10 16:14 | HHI.PR ---
Subjective Remarks The patient is noted agitated on and off. He is on restraints. He is however noted more awake today. He has poor insight and judgment. No fever or chills. No nausea, vomiting, diarrhea or constipation. He is eating well. Objective Vitals Vital Signs Date Time Temp Pulse Resp B/P Pulse Ox O2 Delivery O2 Flow Rate FiO2 12/10/16 12:00 96.5 96 20 122/91 97 12/10/16 08:00 97.4 89 20 147/82 96 12/10/16 07:00 Room Air 12/10/16 07:00 89 12/10/16 04:00 96.7 89 18 153/89 95 12/10/16 01:35 Room Air 12/10/16 00:32 101 12/10/16 00:00 97.2 90 18 150/88 94 12/09/16 20:17 97.6 100 17 146/84 96 I/O 12/09/16 12/09/16 12/09/16 12/10/16 12/10/16 12/10/16 07:00 15:00 23:00 07:00 15:00 23:00 Intake Total 1320 ml 1130 ml Balance 1320 ml 1130 ml Intake Oral 480 ml 720 ml IV Total 840 ml Tube Feeding 350 ml Tube Irrigant 60 ml # Voids 4 4 2 # Bowel Movements 1 Result Diagram: 12/10/16 0859 12/10/16 0859 Imaging Last Impressions Head CT 12/09/16 0000 Signed Impressions: Service Date/Time: Friday, December 09, 2016 17:36 - CONCLUSION: 1. Right ventriculostomy tube remains in place with decrease in ventricular size since November 24. There is some encephalomalacia around the shunt and a probable small infarct in the left basal ganglia. No new hemorrhage or shift. Tip Harris MD Abdomen X-Ray 11/28/16 0000 Signed Impressions: Service Date/Time: Monday, November 28, 2016 16:00 - CONCLUSION: 1. No evidence of bowel obstruction, ileus or perforation. 2. Degenerative changes and scoliosis of the thoracolumbar spine. 3. Degenerative changes involving the hip joints bilaterally. Juan Worley MD Chest X-Ray 11/01/16 0600 Signed Impressions: Service Date/Time: Tuesday, November 01, 2016 04:37 - CONCLUSION: 1. No acute cardiopulmonary disease. Trevin De León MD Transcranial Doppler Study Complete 10/26/16 0700 Signed Impressions: Service Date/Time: Wednesday, October 26, 2016 08:20 - CONCLUSION: Minimal interval improvement with no evidence for vasospasm. Christian Song MD FACR Neck CTA 10/19/16 0000 Signed Impressions: Service Date/Time: Wednesday, October 19, 2016 14:19 - CONCLUSION: Negative for dissection or significant stenosis. Christian Song MD FACR Head CTA 10/19/16 0000 Signed Impressions: Service Date/Time: Wednesday, October 19, 2016 14:19 - CONCLUSION: 1. Interval development of significant vasospasm in the left MCA and SRI territories. 2. Mild vasospasm in the basilar artery.. Gume Mckeon MD Cerebral Arteriogram 10/19/16 0000 Signed Impressions: Service Date/Time: Wednesday, October 19, 2016 16:06 - CONCLUSION: 1. Vasospasm in the left MCA and SRI territories 2. Spasmolytic infusion, left internal carotid artery as above.. 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 Gume Mckeon MD Pelvis X-Ray 10/05/16109 Signed Impressions: Service Date/Time: Wednesday, October 05, 2016 01:22 - CONCLUSION: Unremarkable examination of the pelvis. Ruben Acuña Jr., MD Chest CT 10/05/16109 Signed Impressions: Service Date/Time: Wednesday, October 05, 2016 01:46 - CONCLUSION: 1. No acute intrathoracic abnormality. 2. Bibasilar atelectasis. 3. Cardiomegaly. 4. Prior granulomatous disease. Ruben Acuña Jr., MD Cervical Spine CT 10/05/16109 Signed Impressions: Service Date/Time: Wednesday, October 05, 2016 01:40 - CONCLUSION: 1. No fracture or dislocation. 2. Multilevel degenerative changes. Ruben Acuña Jr., MD Abdomen/Pelvis CT 10/05/16109 Signed Impressions: Service Date/Time: Wednesday, October 05, 2016 01:46 - CONCLUSION: 1. No acute trauma. 2. Rounded area of decreased density involving the pancreatic head. I cannot completely exclude pancreatic head mass. At some point MRI of the pancreas is suggested to further evaluate. 3. Focal area of poor enhancement involving the left kidney. This may relate to an area of parenchymal scarring. I cannot completely exclude a mass. This can be further assessed with MRI as well. Ruben Acuña Jr., MD Objective Remarks GENERAL: Middle-aged male lying in bed, with trach.Noted agitated, and h eis more confused. In restraints. SKIN: Dry. HEAD: Normocephalic. NECK: Supple, trachea midline. Trach site clean, dry. CARDIOVASCULAR: Regular rate and rhythm. No JVD. RESPIRATORY: Breath sounds equal bilaterally. Clear, no wheezes or crackles. Good bilateral excursions. Comfortable. GASTROINTESTINAL: Abdomen soft, non-tender, nondistended. BS active. No guarding. EXTREMITIES: Nonfocal clubbing cyanosis or edema, well perfused. NEURO: Eyes opened, EOMI. Follows some commands in bilateral upper and lower extremities. More confused. Poor insight and judgement. 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 ICD Code: I60.8 Status: Acute (2) Hypertension ICD Code: I10 Status: Chronic (3) Major neurocognitive disorder due to vascular disease, without behavioral disturbance, severe ICD Code: F01.50 Status: Acute (4) Septic shock ICD Code: A41.9 Status: Resolved (5) Hydrocephalus ICD Code: G91.9 Status: Acute (6) Intracranial hemorrhage ICD Code: I62.9 Status: Acute (7) Major neurocognitive disorder as late effect of traumatic brain injury with behavioral disturbance ICD Code: S06.9X9S Status: Acute (8) Encephalopathy ICD Code: G93.40 Status: Acute (9) Sepsis ICD Code: A41.9 Status: Resolved (10) Pneumonia ICD Code: J18.9 Status: Acute (11) Protein-calorie malnutrition, mild ICD Code: E44.1 Status: Acute (12) Acute respiratory failure with hypoxia and hypercarbia ICD Code: J96.01 Status: Acute Assessment and Plan 51 yo M with aneurysmal SAH, s/p basilar artery coiling 10/05. S/p IA Verapamil and 10/19 for cerebral vasospasm. There is some improvement in encephalopathy , acute hypoxic respiratory failure on trach pulm following. . Resolved sepsis. Possible cerebral salt wasting. Was started on salt tabs, 3% saline, florinef, and NS . strict I/Os. TCDs per N/S. s/p Trach 10/23 and PEG 10/24. Had Enterobacter in the sputum. Finished ABX With hydrocephalus s/p shunt on 11/24/[address] Eaton. Viridans strep in CSF culture --> contaminant per ID and Dr Mace , patient is not having symptoms if infection, monitor if altered mental status, fevers or leukocytosis developed then will need repeat CSF cultures. Had C diff resolved post flayl , now off abx. 12/09/16 Noted more agitated and confused. Will check shunt fluid for analysis. Keyshawn do CT head. Check cbc, cmp, ammonia. 12/10/16 patient seems improved today, he is more alert and oriented. However is noted agitated at times requiring strains. Currently off restraints. He has poor mentation, poor insight and judgment. CT scan 12/09/16 reviewed , shows some improvement after shunt placement. Dr. Mace was notified of changes. Aneurysmal subarachnoid hemorrhage, occurred on 10/05/16: -Appreciate neurosurgery recommendations. Okay for Lovenox per neurosurgery. Continue Keppra for seizure prophylaxis. -Status post REGENERATION OPERATOR shunt on 11/24/2016 + Streptococcus viridans in the CSF broth, media was negative. -Clinically patient is doing well. -Dr. Mace stated that CSF fluid was obtain as routine when he does have REGENERATION OPERATOR shunt. -Dr. Mace stated most likely a contaminant recommends reconsult infectious disease. Consult placed. Discussed with Dr Servin ID also thinks is contaminant. Patient is not having symptoms if infection, monitor if altered mental status, fevers or leukocytosis developed then will need repeat CSF cultures. Projectile vomiting on 11/26/2016 with mild epigastric pain. Resolved. -Patient has been asymptomatic since then. KUB negative for any small bowel obstruction or ileus. -Patient is on a PPI. -Continue to monitor clinically. Encephalopathy: -Secondary to above. Mental status is improving slowly. Acute hypoxic, hypercarbic respiratory failure: -Tracheostomy 10/23/16. Continue supplemental oxygen. DuoNeb as needed, scheduled. Trach management per pulmonology. Septic shock: Resolved. Possible cerebral salt wasting: - Continue Florinef, sodium chloride tablets. Mild acute protein calorie malnutrition -Continue tube feedings. Monitor labs. Pneumonia: - Completed antibiotics. C. difficile colitis: -Continue Flagyl. Repeat C. difficile studies are negative. -Patient needs 1 more repeat in order to be off of isolation. Hyperglycemia of critical illness: - Improved. Hydrocephalus: -Repeat head CT unchanged. REGENERATION OPERATOR shunt placement today. Hypokalemia -: Improved DVT prophylaxis: SCDs, YOUSIF hose, Lovenox. GI prophylaxis: Protonix. Discharge Planning Patient stable to be transferred out of [facility] but no beds available. Pending SSI and medicaid for placement. Patient with CSF fluid with Viridans strep likely contaminant. Monitor for fever , leukocytosis, altered mental status and repeat CSF analysis if occurs. 12/09/16 Noted more agitated and confused. CT head no change , shows some improvement. Ordered cultures from shunt. Neurosurgery notified. Problem Qualifiers (1) Hypertension: Qualified Code: I10 - Essential hypertension Adele Cooper MD Dec 10, 2016 16:14
[2016-12-10] MEDS: ENOXAPARIN SODIUM 40 MG/0.4 ML SYRINGE SQ SCH (22:33)
[2016-12-11] VITALS (8 sets, daily range): BP systolic 136–149; BP diastolic 78–92; PULSE 84–104; RESP 18–20; TEMP 96.5–98.2; O2SAT 93–97
[2016-12-11] MEDS: CHLORHEXIDINE GLUCONATE 2 % 1 PACK (2 CLOTHS) TOP SCH (03:09)
[2016-12-11] MEDS: LABETALOL HCL 100 MG TAB PO SCH ×3 (05:00→21:58)
[2016-12-11] MEDS: QUEtiapine FUMARATE 25 MG TAB PO SCH ×3 (08:30→21:58)
[2016-12-11] MEDS: LACTOBACILLUS ACIDOPHILUS TAB PO SCH ×2 (08:30→21:58)
[2016-12-11] MEDS: SODIUM CHLORIDE 1 GRAM TAB PO SCH (08:30)
[2016-12-11] MEDS: hydrALAZINE HCL 50 MG TAB PO SCH ×2 (08:30→21:58)
[2016-12-11] MEDS: PRAVASTATIN SOD 40 MG TAB PO SCH (08:30)
[2016-12-11] MEDS: amLODIPine BESYLATE 5 MG TAB PO SCH (08:30)
[2016-12-11] MEDS: FLUDROCORTISONE ACETATE 0.1 MG TAB PO SCH ×2 (08:31→21:58)
[2016-12-11] MEDS: POTASSIUM CHLORIDE 25 MEQ EFFERVESCENT TAB NG SCH ×2 (08:31→21:59)
[2016-12-11] MEDS: PANTOPRAZOLE SODIUM 40 MG VIAL IV SCH (08:31)
[2016-12-11] MEDS: ARTIFICIAL TEARS OPTH SOLN 15 ML BTL EACH EYE SCH ×3 (08:37→15:12)
[2016-12-11] MEDS: NYSTATIN 100,000 U/GM PWD 15 GM BTL TOPICAL SCH ×3 (08:38→15:12)
--- NOTE | 2016-12-11 13:55 | HHI.PR ---
Objective Vital Signs Date Time Temp Pulse Resp B/P Pulse Ox O2 Delivery O2 Flow Rate FiO2 12/11/16 11:52 97.8 95 20 141/87 97 12/11/16 10:33 94 Room Air 12/11/16 08:47 95 12/11/16 08:03 98.2 84 18 149/87 94 12/11/16 04:00 96.5 92 20 136/78 96 12/11/16 00:00 96.8 88 20 136/86 96 12/10/16 23:49 90 12/10/16 21:08 Room Air 12/10/16 20:00 96.3 90 20 140/83 95 12/10/16 16:00 97.2 98 20 137/86 96 I/O 12/10/16 12/10/16 12/10/16 12/11/16 12/11/16 12/11/16 07:00 15:00 23:00 07:00 15:00 23:00 Intake Total 1130 ml 120 ml Output Total 800 ml Balance 1130 ml 120 ml -800 ml Intake Oral 720 ml 120 ml Tube Feeding 350 ml Tube Irrigant 60 ml Output Urine Total 800 ml # Voids 2 1 # Bowel Movements 1 0 0 Result Diagram: 12/10/16 0859 12/10/16 0859 A/P Problem List: (1) Acute respiratory failure with hypoxia and hypercarbia ICD Code: J96.01 (2) Intracranial hemorrhage ICD Code: I62.9 Assessment and Plan Assessment and Plan 51-year-old male status post aneurysm related acute intracranial hemorrhage. Intracranial hemorrhage Chronic encephalopathy Hydrocephalus Slow improvement Keppra Status post basilar artery coiling 10/05 Status post MANAGER MEDICAL WRITING shunt on 11/24/2016 Acute hypoxic hypercarbic respiratory failure Tracheostomy 10/23/16 Follow respiratory status Trach management per pulmonology. cerebral salt wasting: Follow sodium levels Continue Florinef By mouth sodium tablets C. difficile colitis: Continue Flagyl Follow for diarrhea Hyperglycemia Follow blood sugars Hypokalemia Follow and replace as needed DVT prophylaxis SCDs, YOUSIF han Lovenox. GI prophylaxis Protonix. Discharge Planning Pending SSI and medicaid for placement. [id number] likely needed Magen James MD Dec 11, 2016 13:55
[2016-12-11] MEDS: ENOXAPARIN SODIUM 40 MG/0.4 ML SYRINGE SQ SCH (21:59)
[2016-12-11] MEDS: DOCUSATE SODIUM 100 MG/10 ML UDC G-TUBE PRN (21:59)
[2016-12-12] VITALS (8 sets, daily range): BP systolic 120–147; BP diastolic 72–94; PULSE 87–104; RESP 18–22; TEMP 97.1–97.9; O2SAT 93–98
[2016-12-12] MEDS: CHLORHEXIDINE GLUCONATE 2 % 1 PACK (2 CLOTHS) TOP SCH (02:15)
[2016-12-12] MEDS: LABETALOL HCL 100 MG TAB PO SCH ×3 (04:37→22:05)
--- NOTE | 2016-12-12 08:50 | HHI.NSPN ---
(Meir Sánchez) History Chief Complaint: No complaints this morning (Meir Sánchez) Interval History 11/19: Patient wake this morning and fidgeting in bed. Nursing reports that during the night the patient was very agitated and pulling at his lines and remains restrained due to this. He receives Seroquel at 0900 and 1200 daily. He does follow commands. 11/20: Patient asleep but opens eyes to verbal stimuli. He does follow commands although he is fidgeting in bed and attempting to get out by himself. 11/21: Patient awake & alert in cardiac chair. He does verbalise and denies any complaint. He is following commands. Nursing reported that he stood 3 times this morning with Therapy. He went for a repeat CT brain this morning which demonstrated stable ventriculomegaly. 11/22: The patient is asleep in bed. He does not open his eyes but does attempt to verbalise when seen. He is following commands. 11/23: The patient is awake & alert. He follows commands and attempts to verbalise. 11/24: The patient is awake. He is restless in the bed at times. He does follow commands and is able to vocalise some. 11/25: The patient is awake & alert, fidgeting in bed as usual. He does follow commands and shakes his head no when asked if he has a headache. He went for a ENGINEERING PSYCHOLOGIST shunt yesterday afternoon. 11/30: The patient is awake & alert. He does follow commands. He complains of a headache and pain to the trach. 12/02: The patient was seen to be alert & impulsive prior to being examined this morning. He kept trying to get up out of bed even though there was a sitter with him. When seen the patient did state that he had a headache but no nausea. 12/03: The patient is seen with Dr Mace this morning. He has had a bowel movement in the bed. When asked he does mouth he has some pain to the head. He is disoriented, when asked where he was he said at the doc (dock?) but did not answer yes when asked if he was in the hospital. 12/05: Patient initially seen with Dr Mace this morning. He denied any headache but had some pain to the right side of the head. Trauma notified this practitioner that the patient was complaining of a snowball effect in the peripheral left eye with fog centrally. When seen again the patient stated he had double vision earlier after doing something but no then. He denied any blurry vision or other visual problem and stated his vision was normal. After further questioning the patient states that intermittently when he tries to "upgrade" his vision he sees double/blurry. Nursing reports that the patient has not had any visual complaints for her. 12/12: Patient asleep but awakens to verbal stimuli. He does interact and follows commands but keeps wanting to go back to sleep. He is disoriented as to place and time. (Meir Sánchez) System Review Comments Limited ROS due to patient drifting off to sleep. He did have some nausea earlier this morning but denies any headache, dizziness, vomiting. (Meir Sánchez) Exam Results Vital Signs Date Time Temp Pulse Resp B/P Pulse Ox O2 Delivery O2 Flow Rate FiO2 12/12/16 04:00 97.2 96 20 141/87 94 12/11/16 23:50 Room Air Intake and Output 12/11/16 12/11/16 12/12/16 08:00 16:00 00:00 Intake Total 480 ml 1070 ml Output Total 800 ml Balance -800 ml 480 ml 1070 ml (Meir Sánchez) Physical Examination HEENT: Right parietal & right frontoparietal surgical incisions well healed w/o evident drainage, erythema or streaking. Neck: Active ROM, no nuchal rigidity, no JVD, trached. Respiratory: CTAB w/o W/R/R, equal excursion, non-laboured, on RA, trach decannulated & site covered. Cardiovascular: S1S2 w/RRR w/o M/G/R, radial & pedal pulses 2+ bilaterally, cap refill < 2 sec. Gastrointestinal: Abdomen soft, nontender, positive bowel sounds, PEG tube w/ enteral feeds. RUQ surgical incision well-approximated with skin adhesive, no evident drainage, erythema or streaking evident. Neurological: Awake & alert Oriented to self only and disoriented as to place & date. Follows simple commands Moving all extremities Sensation to light touch grossly intact to all extremities Motor strength 5/5 to all major flexion & extension muscle groups (Meir Sánchez) Medical Decision Making Impression and Plan Impression: 1. 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 Hydrocephalus Postoperative CT scan demonstrates decreased ventricular size w/ encephalomalacia around shunt, a probable small left basal ganglia infarct is note Neurologic exam with gradual improvement, patient intermittently agitated and unaware of situation POD #17 () s/p: ENGINEERING PSYCHOLOGIST shunt placement Plan: Cognitive/speech therapy eval & tx Activity OOB to cardiac chair Continue PT & OT Okay for Lovenox from NSGY standpoint Ulcer prophylaxis Keep SBP between 120-160 mm Hg Diet per ST We will follow him intermittently in the hospital (Meir Sánchez) Attending Statement I have personally seen and examined the patient on the date of this note. Pertinent documentation and study results have been reviewed by the undersigned. I have personally developed the treatment plan and performed medical decision making. Agree with findings, exam, and treatment plan as noted above. No significant neurologic changes over the past week Continue therapies (Gino Mace MD) Meir Sánchez Dec 12, 2016 08:50 Gino Mace MD Dec 12, 2016 19:02
[2016-12-12] MEDS: NYSTATIN 100,000 U/GM PWD 15 GM BTL TOPICAL SCH ×3 (09:00→17:59)
[2016-12-12] MEDS: SODIUM CHLORIDE 1 GRAM TAB PO SCH (09:24)
[2016-12-12] MEDS: POTASSIUM CHLORIDE 25 MEQ EFFERVESCENT TAB NG SCH ×2 (09:24→22:08)
[2016-12-12] MEDS: FLUDROCORTISONE ACETATE 0.1 MG TAB PO SCH ×2 (09:25→22:01)
[2016-12-12] MEDS: LACTOBACILLUS ACIDOPHILUS TAB PO SCH ×2 (09:26→22:05)
[2016-12-12] MEDS: QUEtiapine FUMARATE 25 MG TAB PO SCH ×3 (09:26→22:02)
[2016-12-12] MEDS: PRAVASTATIN SOD 40 MG TAB PO SCH (09:27)
[2016-12-12] MEDS: amLODIPine BESYLATE 5 MG TAB PO SCH (09:27)
[2016-12-12] MEDS: hydrALAZINE HCL 50 MG TAB PO SCH ×2 (09:27→22:04)
[2016-12-12] MEDS: ARTIFICIAL TEARS OPTH SOLN 15 ML BTL EACH EYE SCH ×3 (09:29→17:59)
[2016-12-12] MEDS: PANTOPRAZOLE SODIUM 40 MG VIAL IV SCH (09:29)
--- NOTE | 2016-12-12 09:32 | HHI.PR ---
Subjective Remarks Follow up. Patient is resting, able to open eyes to verbal stimuli but does not seem to want to interact. He does follow some commands. No complaints at this time. Objective Vitals Vital Signs Date Time Temp Pulse Resp B/P Pulse Ox O2 Delivery O2 Flow Rate FiO2 12/12/16 08:00 97.3 91 20 143/85 96 12/12/16 04:00 97.2 96 20 141/87 94 12/12/16 00:00 97.5 104 20 147/94 93 12/11/16 23:50 95 Room Air 12/11/16 21:45 99 12/11/16 20:00 97.5 104 20 141/92 93 12/11/16 16:00 96.9 92 20 140/89 95 12/11/16 11:52 97.8 95 20 141/87 97 12/11/16 10:33 94 Room Air I/O 12/11/16 12/11/16 12/11/16 12/12/16 12/12/16 12/12/16 07:00 15:00 23:00 07:00 15:00 23:00 Intake Total 480 ml 1070 ml 940 ml Output Total 800 ml Balance -800 ml 480 ml 1070 ml 940 ml Intake Oral 480 ml 240 ml 0 ml Tube Feeding 770 ml 880 ml Other 60 ml 60 ml Output Urine Total 800 ml # Voids 2 4 # Bowel Movements 0 0 Result Diagram: 12/10/1685812/10/1659 Objective Remarks GENERAL: patient is resting in restraints, known to pull at his tube SKIN: Warm and dry. HEAD: Atraumatic. Normocephalic. EYES: Pupils equal and round. No scleral icterus. ENT: No nasal bleeding or discharge. Mucous membranes pink and moist. NECK: Trachea midline. No JVD. CARDIOVASCULAR: Regular rate and rhythm. RESPIRATORY: No accessory muscle use. Clear to auscultation. Breath sounds equal bilaterally. Trach site open to air. GASTROINTESTINAL: Abdomen soft, non-tender, nondistended.BS x4. Peg in place. MUSCULOSKELETAL: Extremities without clubbing, cyanosis, or edema. No obvious deformities. NEUROLOGICAL: Alert x 1-2, follows simple comands. Motor grossly within normal limits. Normal speech. Procedures 10/05/16 right frontal twist drill for ventriculostomy placement 10/20/16 arterial line placement 10/23/16 bedside percutaneous tracheostomy under direct bronchoscopic visualization 10/24/16 PEG tube placement at bedside Medications and IVs Current Medications Medications (Trade) Dose Ordered Sig/Nava Route Start Time Stop Time Status Last Admin (Tylenol) 650 mg Q6H PRN PO 10/05/16 02:45 11/24/16 20:17 (Protonix Inj) 40 mg DAILY IV 10/05/16 09:00 12/11/16 08:31 (Tears Naturale Opth Soln) 1 drop TID EACH EYE 10/05/16 09:00 12/11/16 08:37 (Zofran Inj) 4 mg Q6H PRN IV 10/05/16 02:45 11/27/16 23:26 Miscellaneous Information 1 Q361D XX 10/05/16 02:45 10/05/16 02:45 (Chlorhexidine 2% Cloth) Taper DAILY@04 TOP 10/05/16 04:00 10/01/17 03:59 12/05/16 04:00 (Chlorhexidine 2% Cloth) 3 pack UNSCH PRN TOP 10/05/16 02:45 (Pravachol) 40 mg DAILY PO 10/05/16 09:00 12/11/16 08:30 (Florinef) 0.2 mg Q12HR PO 10/22/16 21:00 12/11/16 21:58 (Lovenox Inj) 40 mg Q24H SQ 10/23/16 21:00 12/11/16 21:59 (Trandate) 100 mg Q8H PO 11/03/16 20:00 12/12/16 04:37 (Apresoline) 50 mg Q12HR PO 11/03/16 19:00 12/11/16 21:58 (Norvasc) 5 mg DAILY PO 11/04/16 09:00 12/11/16 08:30 (Mycostatin Powder) 1 applic TID TOPICAL 11/06/16 09:00 12/11/16 08:38 (Lactinex) 1 tab Q12HR PO 11/06/16 21:00 12/11/16 21:58 (SEROquel) 25 mg BID@09,12 PO 11/07/16 09:00 12/11/16 12:33 (Colace Liq) 100 mg Q12H PRN G-TUBE 11/06/16 17:00 12/11/16 21:59 (Imodium) 2 mg UNSCH PRN PO 11/09/16 09:45 11/29/16 12:57 (Lomotil Tab) 1 tab Q6H PRN PO 11/09/16 09:45 (Benadryl Inj) 50 mg Q6H PRN IV 11/16/16 23:00 11/29/16 23:29 (SEROquel) 25 mg HS PO 11/20/16 21:00 12/11/16 21:58 (Sodium Chloride) 2 gm DAILY PO 11/24/16 09:00 12/11/16 08:30 (K-Lyte Cl Eff) 25 meq Q12HR NG 11/25/16 21:00 12/11/16 21:59 (Lactulose Liq) 30 ml QID PRN PO 12/09/16 13:45 A/P Problem List: (1) 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 ICD Code: I60.8 Status: Acute (2) Hypertension ICD Code: I10 Status: Chronic (3) Major neurocognitive disorder due to vascular disease, without behavioral disturbance, severe ICD Code: F01.50 Status: Acute (4) Septic shock ICD Code: A41.9 Status: Resolved (5) Hydrocephalus ICD Code: G91.9 Status: Acute (6) Intracranial hemorrhage ICD Code: I62.9 Status: Acute (7) Major neurocognitive disorder as late effect of traumatic brain injury with behavioral disturbance ICD Code: S06.9X9S Status: Acute (8) Encephalopathy ICD Code: G93.40 Status: Acute (9) Sepsis ICD Code: A41.9 Status: Resolved (10) Pneumonia ICD Code: J18.9 Status: Acute (11) Protein-calorie malnutrition, mild ICD Code: E44.1 Status: Acute (12) Acute respiratory failure with hypoxia and hypercarbia ICD Code: J96.01 Status: Acute Assessment and Plan 51-year-old male status post aneurysm related acute intracranial hemorrhage. Intracranial hemorrhage, Status post basilar artery coiling 10/05, Status post SPORTS MARKETING SPECIALIST shunt on 11/24/2016 Chronic encephalopathy Hydrocephalus, Slow improvement -Cont Keppra -Followed by neurology -Speech therapy recommends regular diet with thin liquids, TF 6p-6a, if patient is not consuming most of his tray, will restart TF during the day. -Cont PT/OT Acute hypoxic hypercarbic respiratory failure -Tracheostomy 10/23/16, removed, old trach site open to air -Follow respiratory status Cerebral salt wasting: -Follow sodium levels, labs stable -Continue Florinef -By mouth sodium tablets C. difficile colitis, resolved -Completed Flagyl on 10/23 -Follow for diarrhea -Cont Lactinex Hyperglycemia, resolve -Follow blood sugars Hypokalemia, 3.4 12/12 -20meq given po -Follow and replace as needed DVT prophylaxis: SCDs, YOUSIF hose, Lovenox. GI prophylaxis: Protonix. Discharge Planning As of 12/06/16 Placement pending Medicaid and SSI approval. Problem Qualifiers (1) Hypertension: Qualified Code: I10 - Essential hypertension Yamini Putnam Dec 12, 2016 09:32
[2016-12-12 09:39] LABS: BICARBONATE 26.2 MEQ/L (21.0-32.0); CALCIUM 8.8 MG/DL (8.5-10.1); CREATININE 0.68 MG/DL (0.60-1.30)
[2016-12-12] MEDS ORDERED: POTASSIUM CHLORIDE 20 MEQ CONTROLLED RELEASE TAB PO ONE (12:30)
--- NOTE | 2016-12-12 20:19 | HHI.PR ---
Subjective Remarks 51 YOWM with TBI,RF,Trach removal No Fever Doing well on RA Alert, awake, follows commands Tolerates PO diet. No new complaint Objective Vital Signs Vital Signs Date Time Temp Pulse Resp B/P Pulse Ox O2 Delivery O2 Flow Rate FiO2 12/12/16 20:13 97.9 98 22 120/80 95 12/12/16 17:02 87 12/12/16 16:00 97.1 88 18 126/72 98 12/12/16 12:00 97.9 89 18 140/85 96 12/12/16 09:27 98 Room Air 12/12/16 08:00 97.3 91 20 143/85 96 12/12/16 04:00 97.2 96 20 141/87 94 12/12/16 00:00 97.5 104 20 147/94 93 12/11/16 23:50 95 Room Air 12/11/16 21:45 99 I/O 12/11/16 12/11/16 12/11/16 12/12/16 12/12/16 12/12/16 06:59 14:59 22:59 06:59 14:59 22:59 Intake Total 480 ml 1070 ml 940 ml 480 ml Output Total 800 ml Balance -800 ml 480 ml 1070 ml 940 ml 480 ml Intake Oral 480 ml 240 ml 0 ml 480 ml Tube Feeding 770 ml 880 ml Other 60 ml 60 ml Output Urine Total 800 ml # Voids 2 4 2 # Bowel Movements 0 0 1 Result Diagram: 12/10/16 0859 12/12/16 0816 Objective Remarks GENERAL: WBWN male, on Trach collar SKIN: Warm and dry. HEAD: Normocephalic. EYES: No scleral icterus. No injection or drainage. NECK: Supple, trachea midline. No JVD or lymphadenopathy. CARDIOVASCULAR: Regular rate and rhythm without murmurs, gallops, or rubs. RESPIRATORY: Breath sounds equal bilaterally. No accessory muscle use. GASTROINTESTINAL: Abdomen soft, non-tender, nondistended. PEG tube in place MUSCULOSKELETAL: No cyanosis, or edema. BACK: Nontender without obvious deformity. No CVA tenderness. A/P Assessment and Plan RF, s/p Trach remoal Intracranial bleed Hydrocephalous HTN C.diff positive PLAN: Stable on RA Trach site care. LISA RN Stable from pulm standpoint Renard Virgen MD Dec 12, 2016 20:19
[2016-12-12] MEDS: ENOXAPARIN SODIUM 40 MG/0.4 ML SYRINGE SQ SCH (22:01)
[2016-12-13] VITALS (8 sets, daily range): BP systolic 121–148; BP diastolic 75–89; PULSE 88–104; RESP 18–20; TEMP 96.4–98.7; O2SAT 94–97
[2016-12-13] MEDS: CHLORHEXIDINE GLUCONATE 2 % 1 PACK (2 CLOTHS) TOP SCH (04:00)
[2016-12-13] MEDS: LABETALOL HCL 100 MG TAB PO SCH ×3 (04:45→22:06)
[2016-12-13 07:33] LABS: BICARBONATE 26.2 MEQ/L (21.0-32.0); CALCIUM 8.5 MG/DL (8.5-10.1); CREATININE 0.82 MG/DL (0.60-1.30)
[2016-12-13] MEDS: POTASSIUM CHLORIDE 25 MEQ EFFERVESCENT TAB NG SCH ×2 (08:43→22:06)
[2016-12-13] MEDS: FLUDROCORTISONE ACETATE 0.1 MG TAB PO SCH ×2 (08:44→22:06)
[2016-12-13] MEDS: SODIUM CHLORIDE 1 GRAM TAB PO SCH (08:45)
[2016-12-13] MEDS: LACTOBACILLUS ACIDOPHILUS TAB PO SCH ×2 (08:46→22:06)
[2016-12-13] MEDS: QUEtiapine FUMARATE 25 MG TAB PO SCH ×3 (08:47→22:06)
[2016-12-13] MEDS: amLODIPine BESYLATE 5 MG TAB PO SCH (08:47)
[2016-12-13] MEDS: hydrALAZINE HCL 50 MG TAB PO SCH ×2 (08:49→22:06)
[2016-12-13] MEDS: PANTOPRAZOLE SODIUM 40 MG VIAL IV SCH (08:50)
[2016-12-13] MEDS: PRAVASTATIN SOD 40 MG TAB PO SCH (08:50)
[2016-12-13] MEDS: NYSTATIN 100,000 U/GM PWD 15 GM BTL TOPICAL SCH ×3 (08:51→17:37)
[2016-12-13] MEDS: ARTIFICIAL TEARS OPTH SOLN 15 ML BTL EACH EYE SCH ×3 (08:51→17:36)
--- NOTE | 2016-12-13 09:35 | HHI.PR ---
Subjective Remarks Follow up. [facility] Alert, oriented only to self today, states he is at work and the year is 3092. Denies any chest pain , sob, fever or chills. Nurse stated he does get more confused at night time. No new complaints over night. Objective Vitals Vital Signs Date Time Temp Pulse Resp B/P Pulse Ox O2 Delivery O2 Flow Rate FiO2 12/13/16 08:27 97.1 88 20 139/82 94 12/13/16 04:42 98.2 101 20 139/82 94 12/13/16 00:07 98.7 104 20 134/86 94 12/12/16 20:13 97.9 98 22 120/80 95 12/12/16 19:00 93 12/12/16 17:02 87 12/12/16 16:00 97.1 88 18 126/72 98 12/12/16 12:00 97.9 89 18 140/85 96 I/O 12/12/16 12/12/16 12/12/16 12/13/16 12/13/16 12/13/16 07:00 15:00 23:00 07:00 15:00 23:00 Intake Total 940 ml 480 ml Output Total 0 ml Balance 940 ml 480 ml 0 ml Intake Oral 0 ml 480 ml Tube Feeding 880 ml Other 60 ml Tube Feeding Residual Discard 0 ml # Voids 4 2 2 2 # Bowel Movements 0 1 Result Diagram: 12/10/16 0859 12/13/16 0627 Objective Remarks GENERAL: patient is sitting at nurses station in [facility] SKIN: Warm and dry. HEAD: Atraumatic. Normocephalic. EYES: Pupils equal and round. No scleral icterus. ENT: No nasal bleeding or discharge. Mucous membranes pink and moist. NECK: Trachea midline. No JVD. CARDIOVASCULAR: Regular rate and rhythm. RESPIRATORY: No accessory muscle use. Clear to auscultation. Breath sounds equal bilaterally. Trach site open to air. GASTROINTESTINAL: Abdomen soft, non-tender, nondistended.BS x4. Peg in place. MUSCULOSKELETAL: Extremities without clubbing, cyanosis, or edema. No obvious deformities. NEUROLOGICAL: Alert x 1, follows simple commands. Motor grossly within normal limits. Normal speech. Procedures 10/05/16 right frontal twist drill for ventriculostomy placement 10/20/16 arterial line placement 10/23/16 bedside percutaneous tracheostomy under direct bronchoscopic visualization 10/24/16 PEG tube placement at bedside Medications and IVs Current Medications Medications (Trade) Dose Ordered Sig/Nava Route Start Time Stop Time Status Last Admin (Tylenol) 650 mg Q6H PRN PO 10/05/16 02:45 11/24/16 20:17 (Protonix Inj) 40 mg DAILY IV 10/05/16 09:00 12/13/16 08:50 (Tears Naturale Opth Soln) 1 drop TID EACH EYE 10/05/16 09:00 12/13/16 08:51 (Zofran Inj) 4 mg Q6H PRN IV 10/05/16 02:45 11/27/16 23:26 Miscellaneous Information 1 Q361D XX 10/05/16 02:45 10/05/16 02:45 (Chlorhexidine 2% Cloth) Taper DAILY@04 TOP 10/05/16 04:00 10/01/17 03:59 12/05/16 04:00 (Chlorhexidine 2% Cloth) 3 pack UNSCH PRN TOP 10/05/16 02:45 (Pravachol) 40 mg DAILY PO 10/05/16 09:00 12/13/16 08:50 (Florinef) 0.2 mg Q12HR PO 10/22/16 21:00 12/13/16 08:44 (Lovenox Inj) 40 mg Q24H SQ 10/23/16 21:00 12/12/16 22:01 (Trandate) 100 mg Q8H PO 11/03/16 20:00 12/13/16 04:45 (Apresoline) 50 mg Q12HR PO 11/03/16 19:00 12/13/16 08:49 (Norvasc) 5 mg DAILY PO 11/04/16 09:00 12/13/16 08:47 (Mycostatin Powder) 1 applic TID TOPICAL 11/06/16 09:00 12/11/16 08:38 (Lactinex) 1 tab Q12HR PO 11/06/16 21:00 12/13/16 08:46 (SEROquel) 25 mg BID@09,12 PO 11/07/16 09:00 12/13/16 08:47 (Colace Liq) 100 mg Q12H PRN G-TUBE 11/06/16 17:00 12/11/16 21:59 (Imodium) 2 mg UNSCH PRN PO 11/09/16 09:45 11/29/16 12:57 (Lomotil Tab) 1 tab Q6H PRN PO 11/09/16 09:45 (Benadryl Inj) 50 mg Q6H PRN IV 11/16/16 23:00 11/29/16 23:29 (SEROquel) 25 mg HS PO 11/20/16 21:00 12/12/16 22:02 (Sodium Chloride) 2 gm DAILY PO 11/24/16 09:00 12/13/16 08:45 (Lactulose Liq) 30 ml QID PRN PO 12/09/16 13:45 (K-Lyte Cl Eff) 50 meq Q12HR NG 12/13/16 09:00 12/13/16 08:43 A/P Problem List: (1) 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 ICD Code: I60.8 Status: Acute (2) Hypertension ICD Code: I10 Status: Chronic (3) Major neurocognitive disorder due to vascular disease, without behavioral disturbance, severe ICD Code: F01.50 Status: Acute (4) Septic shock ICD Code: A41.9 Status: Resolved (5) Hydrocephalus ICD Code: G91.9 Status: Acute (6) Intracranial hemorrhage ICD Code: I62.9 Status: Acute (7) Major neurocognitive disorder as late effect of traumatic brain injury with behavioral disturbance ICD Code: S06.9X9S Status: Acute (8) Encephalopathy ICD Code: G93.40 Status: Acute (9) Sepsis ICD Code: A41.9 Status: Resolved (10) Pneumonia ICD Code: J18.9 Status: Acute (11) Protein-calorie malnutrition, mild ICD Code: E44.1 Status: Acute (12) Acute respiratory failure with hypoxia and hypercarbia ICD Code: J96.01 Status: Acute Assessment and Plan 51-year-old male status post aneurysm related acute intracranial hemorrhage. 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 -Cont PT/OT Acute hypoxic hypercarbic respiratory failure -Tracheostomy 10/23/16, removed, old trach site open to air -Follow respiratory status Cerebral salt wasting: -Follow sodium levels, labs stable -Continue Florinef -By mouth sodium tablets C. difficile colitis, resolved -Completed Flagyl on 10/23 -Follow for diarrhea -Cont Lactinex Hyperglycemia, resolve -Follow blood sugars Hypokalemia, 3.4 12/12. 3.2 12/13 -Increased supplement to 50meq eff BID, labs in am -Follow and replace as needed DVT prophylaxis: SCDs, YOUSIF emely, Lovenox. GI prophylaxis: Protonix. Discharge Planning As of 12/06/16 Placement pending Medicaid and SSI approval. Problem Qualifiers (1) Hypertension: Qualified Code: I10 - Essential hypertension Yamini Putnam Dec 13, 2016 09:35
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
[2016-12-13] MEDS: ENOXAPARIN SODIUM 40 MG/0.4 ML SYRINGE SQ SCH (22:07)
[2016-12-14] VITALS (7 sets, daily range): BP systolic 122–141; BP diastolic 66–90; PULSE 86–114; RESP 20–21; TEMP 96–98.1; O2SAT 92–97
[2016-12-14] MEDS: CHLORHEXIDINE GLUCONATE 2 % 1 PACK (2 CLOTHS) TOP SCH (03:09)
[2016-12-14] MEDS: LABETALOL HCL 100 MG TAB PO SCH ×3 (03:32→22:38)
[2016-12-14] MEDS ORDERED: POTASSIUM CHLORIDE 10 MEQ CONTROLLED RELEASE TAB PO ONE (07:45)
[2016-12-14] MEDS: SODIUM CHLORIDE 1 GRAM TAB PO SCH (08:35)
[2016-12-14] MEDS: QUEtiapine FUMARATE 25 MG TAB PO SCH ×3 (08:36→22:39)
[2016-12-14] MEDS: PRAVASTATIN SOD 40 MG TAB PO SCH (08:36)
[2016-12-14] MEDS: hydrALAZINE HCL 50 MG TAB PO SCH ×2 (08:36→22:38)
[2016-12-14] MEDS: FLUDROCORTISONE ACETATE 0.1 MG TAB PO SCH ×2 (08:36→22:39)
[2016-12-14] MEDS: amLODIPine BESYLATE 5 MG TAB PO SCH (08:36)
[2016-12-14] MEDS: LACTOBACILLUS ACIDOPHILUS TAB PO SCH ×2 (08:36→22:38)
[2016-12-14] MEDS: PANTOPRAZOLE SODIUM 40 MG VIAL IV SCH (08:37)
[2016-12-14] MEDS: ARTIFICIAL TEARS OPTH SOLN 15 ML BTL EACH EYE SCH ×3 (08:37→16:36)
[2016-12-14] MEDS: NYSTATIN 100,000 U/GM PWD 15 GM BTL TOPICAL SCH ×3 (08:37→16:36)
[2016-12-14] MEDS: POTASSIUM CHLORIDE 25 MEQ EFFERVESCENT TAB NG SCH ×2 (08:37→22:40)
[2016-12-14 09:19] LABS: CALCIUM 8.8 MG/DL (8.5-10.1); CREATININE 0.67 MG/DL (0.60-1.30)
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
[2016-12-14] MEDS: ENOXAPARIN SODIUM 40 MG/0.4 ML SYRINGE SQ SCH (22:40)
[2016-12-15] VITALS (7 sets, daily range): BP systolic 127–137; BP diastolic 80–86; PULSE 80–105; RESP 17–20; TEMP 97–98.8; O2SAT 92–96
[2016-12-15] MEDS: CHLORHEXIDINE GLUCONATE 2 % 1 PACK (2 CLOTHS) TOP SCH (04:00)
[2016-12-15] MEDS: LABETALOL HCL 100 MG TAB PO SCH ×3 (04:37→22:24)
[2016-12-15 09:50] LABS: BICARBONATE 22.6 MEQ/L (21.0-32.0); CALCIUM 8.8 MG/DL (8.5-10.1); CREATININE 0.87 MG/DL (0.60-1.30)
[2016-12-15] MEDS: ARTIFICIAL TEARS OPTH SOLN 15 ML BTL EACH EYE SCH ×3 (10:20→18:23)
[2016-12-15] MEDS: POTASSIUM CHLORIDE 25 MEQ EFFERVESCENT TAB NG SCH (10:21)
[2016-12-15] MEDS: FLUDROCORTISONE ACETATE 0.1 MG TAB PO SCH ×2 (10:22→22:24)
[2016-12-15] MEDS: LACTOBACILLUS ACIDOPHILUS TAB PO SCH ×2 (10:22→22:24)
[2016-12-15] MEDS: amLODIPine BESYLATE 5 MG TAB PO SCH (10:23)
[2016-12-15] MEDS: PRAVASTATIN SOD 40 MG TAB PO SCH (10:23)
[2016-12-15] MEDS: SODIUM CHLORIDE 1 GRAM TAB PO SCH (10:23)
[2016-12-15] MEDS: QUEtiapine FUMARATE 25 MG TAB PO SCH ×3 (10:23→22:24)
[2016-12-15] MEDS: hydrALAZINE HCL 50 MG TAB PO SCH ×2 (10:23→22:24)
[2016-12-15] MEDS: NYSTATIN 100,000 U/GM PWD 15 GM BTL TOPICAL SCH ×3 (10:28→18:23)
--- NOTE | 2016-12-15 10:32 | HHI.NSPN ---
(Meir Sánchez) History Chief Complaint: Numbness to foot (Meir Sánchez) Interval History 11/19: Patient wake this morning and fidgeting in bed. Nursing reports that during the night the patient was very agitated and pulling at his lines and remains restrained due to this. He receives Seroquel at 0900 and 1200 daily. He does follow commands. 11/20: Patient asleep but opens eyes to verbal stimuli. He does follow commands although he is fidgeting in bed and attempting to get out by himself. 11/21: Patient awake & alert in cardiac chair. He does verbalise and denies any complaint. He is following commands. Nursing reported that he stood 3 times this morning with Therapy. He went for a repeat CT brain this morning which demonstrated stable ventriculomegaly. 11/22: The patient is asleep in bed. He does not open his eyes but does attempt to verbalise when seen. He is following commands. 11/23: The patient is awake & alert. He follows commands and attempts to verbalise. 11/24: The patient is awake. He is restless in the bed at times. He does follow commands and is able to vocalise some. 11/25: The patient is awake & alert, fidgeting in bed as usual. He does follow commands and shakes his head no when asked if he has a headache. He went for a HIGHER EDUCATION ADMINISTRATOR shunt yesterday afternoon. 11/30: The patient is awake & alert. He does follow commands. He complains of a headache and pain to the trach. 12/02: The patient was seen to be alert & impulsive prior to being examined this morning. He kept trying to get up out of bed even though there was a sitter with him. When seen the patient did state that he had a headache but no nausea. 12/03: The patient is seen with Dr Mace this morning. He has had a bowel movement in the bed. When asked he does mouth he has some pain to the head. He is disoriented, when asked where he was he said at the doc ([facility]?) but did not answer yes when asked if he was in the hospital. 12/05: Patient initially seen with Dr Mace this morning. He denied any headache but had some pain to the right side of the head. Trauma notified this practitioner that the patient was complaining of a snowball effect in the peripheral left eye with fog centrally. When seen again the patient stated he had double vision earlier after doing something but no then. He denied any blurry vision or other visual problem and stated his vision was normal. After further questioning the patient states that intermittently when he tries to "upgrade" his vision he sees double/blurry. Nursing reports that the patient has not had any visual complaints for her. 12/12: Patient asleep but awakens to verbal stimuli. He does interact and follows commands but keeps wanting to go back to sleep. He is disoriented as to place and time. 12/15: The patient is doing well this morning. He endorsed numbness to the foot but when he rubbed the other foot over it stated the numbness had resolved. He is still confused, especially to time. (Meir Sánchez) System Review Comments Head: The patient denies any head pain. HEENT: The patient denies any visual problems. Respiratory: The patient states that he does have some shortness of breath but denies any productive cough. Cardiovascular: The patient denies any chest pain, palpitations or irregular heartbeat. Gastrointestinal: The patient denies any abdominal pain or nausea. Extremities: The patient denies any arm or leg pain or weakness. Neurological: The patient complains of numbness to the foot but then rubs the other foot over it and states it has gone. He denies any headache, dizziness or tingling. (Meir Sánchez) Exam Results Vital Signs Date Time Temp Pulse Resp B/P Pulse Ox O2 Delivery O2 Flow Rate FiO2 12/15/16 08:48 97.0 105 18 132/85 95 12/13/16 08:47 Room Air Intake and Output 12/14/16 12/14/16 12/15/16 08:00 16:00 00:00 Intake Total 0 ml 780 ml 400 ml Output Total 200 ml 0 ml Balance -200 ml 780 ml 400 ml (Meir Sánchez) Physical Examination HEENT: Right parietal & right frontoparietal surgical incisions well healed w/o evident drainage, erythema or streaking. Neck: Active ROM, no nuchal rigidity, no JVD, trached. Respiratory: CTAB w/o W/R/R, equal excursion, non-laboured, on RA, trach decannulated & site covered. Cardiovascular: S1S2 w/RRR w/o M/G/R, radial & pedal pulses 2+ bilaterally, cap refill < 2 sec. Gastrointestinal: Abdomen soft, nontender, positive bowel sounds, PEG tube clamped. Neurological: Awake & alert Oriented to self only and disoriented as to place & date although when asked if this is a hospital he states yes. Follows simple commands Moving all extremities Sensation to light touch grossly intact to all extremities Motor strength 5/5 to all major flexion & extension muscle groups (Meir Sánchez) Lab, Micro, Other Results Allergies Coded Allergies Type Severity Reaction Last Updated Verified Penicillin Allergy Unknown 10/06/16 Yes Sulfa Allergy Unknown 10/06/16 Yes 12/13////// 06:00 18:00 06:00 18:00 06:00 18:00 Intake Total 840 ml 0 ml 780 ml 500 ml 200 ml Output Total 0 ml 400 ml 200 ml 0 ml Balance 0 ml 840 ml -400 ml 580 ml 500 ml 200 ml Intake Oral 840 ml 0 ml 780 ml 500 ml 200 ml Output Urine Total 400 ml 200 ml 0 ml Tube Feeding Residual Discard 0 ml # Voids 4 3 5 2 3 1 # Bowel Movements 2 2 0 0 1 Laboratory Tests Test 12/13/16 12/14/16 12/15/16 06:27 07:36 08:21 Sodium Level 144 MEQ/L 143 MEQ/L 139 MEQ/L Potassium Level 3.2 MEQ/L 3.3 MEQ/L 5.2 MEQ/L Chloride Level 106 MEQ/L 107 MEQ/L 107 MEQ/L Carbon Dioxide Level 26.2 MEQ/L 25.0 MEQ/L 22.6 MEQ/L Anion Gap 12 MEQ/L 11 MEQ/L 9 MEQ/L Blood Urea Nitrogen 18 MG/DL 14 MG/DL 18 MG/DL Creatinine 0.82 MG/DL 0.67 MG/DL 0.87 MG/DL Estimat Glomerular Filtration 99 ML/MIN 125 ML/MIN 93 ML/MIN Rate Random Glucose 119 MG/DL 91 MG/DL 96 MG/DL Calcium Level 8.5 MG/DL 8.8 MG/DL 8.8 MG/DL Magnesium Level 2.0 MG/DL Vital Signs Date Time Temp Pulse Resp B/P Pulse Ox O2 Delivery O2 Flow Rate FiO2 12/15/16 08:48 97.0 105 18 132/85 95 12/15/16 05:00 98.8 101 20 135/84 92 12/15/16 04:00 98.8 101 20 135/84 92 12/15/16 00:00 97.9 80 17 128/80 94 12/14/16 20:00 97.9 114 20 131/87 95 12/14/16 16:00 96.0 92 21 126/66 96 12/14/16 12:00 98.1 105 21 122/76 97 12/14/16 08:00 98.0 101 21 141/90 92 12/14/16 04:30 97.2 91 20 140/85 96 12/14/16 03:30 86 12/14/16 00:00 98.0 99 20 137/90 94 12/13/16 20:40 97.9 90 18 148/89 95 12/13/16 16:16 96.4 96 18 127/75 95 12/13/16 12:23 90 12/13/16 12:00 96.9 98 20 121/82 97 12/13/16 08:47 94 Room Air 12/13/16 08:43 90 12/13/16 08:27 97.1 88 20 139/82 94 12/13/16 04:42 98.2 101 20 139/82 94 12/13/16 00:07 98.7 104 20 134/86 94 12/12/16 20:13 97.9 98 22 120/80 95 12/12/16 19:00 93 12/12/16 17:02 87 12/12/16 16:00 97.1 88 18 126/72 98 12/12/16 12:00 97.9 89 18 140/85 96 (Meir Sánchez) Medical Decision Making Impression and Plan Impression: 1. 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 Hydrocephalus Postoperative CT scan demonstrates decreased ventricular size w/ encephalomalacia around shunt, a probable small left basal ganglia infarct is note Neurologic exam with gradual improvement, patient intermittently agitated and unaware of situation, still with cognitive deficits POD #20 () s/p: HIGHER EDUCATION ADMINISTRATOR shunt placement Plan: Cognitive/speech therapy eval & tx Activity OOB to cardiac chair Continue PT & OT Okay for Lovenox from NSGY standpoint Ulcer prophylaxis Keep SBP between 120-160 mm Hg Diet per ST We will follow him intermittently in the hospital (Meir Sánchez) Attending Statement I have personally seen and examined the patient on the date of this note. Pertinent documentation and study results have been reviewed by the undersigned. I have personally developed the treatment plan and performed medical decision making. Agree with findings, exam, and treatment plan as noted above. Neurologic exam stable over the past week. (Gino Mace MD) Meir Sánchez Dec 15, 2016 10:32 Gino Mace MD Dec 15, 2016 14:24
--- NOTE | 2016-12-15 13:40 | HHI.PR ---
Subjective Remarks Followed for TBI Pt denied fever, body ache,chills, N/V/D, cough, shortness of breath. Pt reported having a headache from "drinking too much last night." When asked what he drank he "didn't know." Pt reported currently being in "[place]" and the year is "1983". pt said he moved to [place] in 1979. 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 Discussed pt's cognitive status and reported history with Speech Language Pathologist (Sommer) Objective Vitals Vital Signs Date Time Temp Pulse Resp B/P Pulse Ox O2 Delivery O2 Flow Rate FiO2 12/15/16 12:46 97.7 100 18 128/85 94 12/15/16 08:48 97.0 105 18 132/85 95 12/15/16 05:00 98.8 101 20 135/84 92 12/15/16 04:00 98.8 101 20 135/84 92 12/15/16 00:00 97.9 80 17 128/80 94 12/14/16 20:00 97.9 114 20 131/87 95 12/14/16 16:00 96.0 92 21 126/66 96 I/O 12/14/16 12/14/16 12/14/16 12/15/16 12/15/16 12/15/16 07:00 15:00 23:00 07:00 15:00 23:00 Intake Total 0 ml 780 ml 400 ml 100 ml 680 ml Output Total 200 ml 0 ml Balance 0 ml 580 ml 400 ml 100 ml 680 ml Intake Oral 0 ml 780 ml 400 ml 100 ml 680 ml Output Urine Total 200 ml 0 ml # Voids 5 2 3 1 # Bowel Movements 0 0 0 0 1 Result Diagram: 12/15/16 0821 Imaging Last Impressions Head CT 12/09/16 0000 Signed Impressions: Service Date/Time: Friday, December 09, 2016 17:36 - CONCLUSION: 1. Right ventriculostomy tube remains in place with decrease in ventricular size since November 24. There is some encephalomalacia around the shunt and a probable small infarct in the left basal ganglia. No new hemorrhage or shift. Tip Harris MD Abdomen X-Ray 11/28/16 0000 Signed Impressions: Service Date/Time: Monday, November 28, 2016 16:00 - CONCLUSION: 1. No evidence of bowel obstruction, ileus or perforation. 2. Degenerative changes and scoliosis of the thoracolumbar spine. 3. Degenerative changes involving the hip joints bilaterally. Juan Worley MD Chest X-Ray 11/01/16 0600 Signed Impressions: Service Date/Time: Tuesday, November 01, 2016 04:37 - CONCLUSION: 1. No acute cardiopulmonary disease. Trevin De León MD Transcranial Doppler Study Complete 10/26/16 0700 Signed Impressions: Service Date/Time: Wednesday, October 26, 2016 08:20 - CONCLUSION: Minimal interval improvement with no evidence for vasospasm. Christian Song MD FACR Neck CTA 10/19/16 0000 Signed Impressions: Service Date/Time: Wednesday, October 19, 2016 14:19 - CONCLUSION: Negative for dissection or significant stenosis. Christian Song MD FACR Head CTA 10/19/16 0000 Signed Impressions: Service Date/Time: Wednesday, October 19, 2016 14:19 - CONCLUSION: 1. Interval development of significant vasospasm in the left MCA and SRI territories. 2. Mild vasospasm in the basilar artery.. Gume Mckeon MD Cerebral Arteriogram 10/19/16 0000 Signed Impressions: Service Date/Time: Wednesday, October 19, 2016 16:06 - CONCLUSION: 1. Vasospasm in the left MCA and SRI territories 2. Spasmolytic infusion, left internal carotid artery as above.. 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 Gume Mckeon MD Pelvis X-Ray 10/05/16 011 Signed Impressions: Service Date/Time: Wednesday, October 05, 2016 01:22 - CONCLUSION: Unremarkable examination of the pelvis. Ruben Acuña Jr., MD Chest CT 10/05/16 011 Signed Impressions: Service Date/Time: Wednesday, October 05, 2016 01:46 - CONCLUSION: 1. No acute intrathoracic abnormality. 2. Bibasilar atelectasis. 3. Cardiomegaly. 4. Prior granulomatous disease. Ruben Acuña Jr., MD Cervical Spine CT 10/05/16109 Signed Impressions: Service Date/Time: Wednesday, October 05, 2016 01:40 - CONCLUSION: 1. No fracture or dislocation. 2. Multilevel degenerative changes. Ruben Acuña Jr., MD Abdomen/Pelvis CT 10/05/16109 Signed Impressions: Service Date/Time: Wednesday, October 05, 2016 01:46 - CONCLUSION: 1. No acute trauma. 2. Rounded area of decreased density involving the pancreatic head. I cannot completely exclude pancreatic head mass. At some point MRI of the pancreas is suggested to further evaluate. 3. Focal area of poor enhancement involving the left kidney. This may relate to an area of parenchymal scarring. I cannot completely exclude a mass. This can be further assessed with MRI as well. Ruben Acuña Jr., MD Objective Remarks GENERAL: Pt encountered sitting at nurse's station in a recliner, resting, with eyes closed. He easily awakened. SKIN: Warm and dry.Right side of skull evidencing recent surgery. HEAD: Normocephalic. EYES: No scleral icterus. No injection or drainage. NECK: Supple, trachea midline. No lymphadenopathy. Site of recent T-Tube healing. CARDIOVASCULAR: Regular rate and rhythm without murmurs, gallops, or rubs. RESPIRATORY: Breath sounds equal bilaterally. No accessory muscle use. GASTROINTESTINAL: Abdomen soft, non-tender, nondistended. MUSCULOSKELETAL: No cyanosis, or edema. PSYCHIATRIC: Pt alert and oriented to self. Said he was in [place] and the year was "1983". He did not evidence overt signs of anxiety or depression. Affect flat. Mood good. Pleasant and cooperative. Procedures 10/05/16 right frontal twist drill for ventriculostomy placement 10/20/16 arterial line placement 10/23/16 bedside percutaneous tracheostomy under direct bronchoscopic visualization 10/24/16 PEG tube placement at bedside Medications and IVs Current Medications Medications (Trade) Dose Ordered Sig/Nava Route Start Time Stop Time Status Last Admin (Tylenol) 650 mg Q6H PRN PO 10/05/16 02:45 11/24/16 20:17 (Tears Naturale Opth Soln) 1 drop TID EACH EYE 10/05/16 09:00 12/15/16 10:20 (Zofran Inj) 4 mg Q6H PRN IV 10/05/16 02:45 11/27/16 23:26 Miscellaneous Information 1 Q361D XX 10/05/16 02:45 10/05/16 02:45 (Chlorhexidine 2% Cloth) Taper DAILY@04 TOP 10/05/16 04:00 10/01/17 03:59 12/05/16 04:00 (Chlorhexidine 2% Cloth) 3 pack UNSCH PRN TOP 10/05/16 02:45 (Pravachol) 40 mg DAILY PO 10/05/16 09:00 12/15/16 10:23 (Florinef) 0.2 mg Q12HR PO 10/22/16 21:00 12/15/16 10:22 (Lovenox Inj) 40 mg Q24H SQ 10/23/16 21:00 12/14/16 22:40 (Trandate) 100 mg Q8H PO 11/03/16 20:00 12/15/16 04:37 (Apresoline) 50 mg Q12HR PO 11/03/16 19:00 12/15/16 10:23 (Norvasc) 5 mg DAILY PO 11/04/16 09:00 12/15/16 10:23 (Mycostatin Powder) 1 applic TID TOPICAL 11/06/16 09:00 12/15/16 10:28 (Lactinex) 1 tab Q12HR PO 11/06/16 21:00 12/15/16 10:22 (SEROquel) 25 mg BID@09,12 PO 11/07/16 09:00 12/15/16 10:23 (Colace Liq) 100 mg Q12H PRN G-TUBE 11/06/16 17:00 12/11/16 21:59 (Imodium) 2 mg UNSCH PRN PO 11/09/16 09:45 11/29/16 12:57 (Lomotil Tab) 1 tab Q6H PRN PO 11/09/16 09:45 (Benadryl Inj) 50 mg Q6H PRN IV 11/16/16 23:00 11/29/16 23:29 (SEROquel) 25 mg HS PO 11/20/16 21:00 6/14/17 22:39 (Sodium Chloride) 2 gm DAILY PO 11/24/16 09:00 12/15/16 10:23 (Lactulose Liq) 30 ml QID PRN PO 12/09/16 13:45 (K-Lyte Cl Eff) 50 meq Q12HR NG 12/13/16 09:00 12/15/16 10:21 (Protonix) 40 mg DAILY PO 12/16/16 09:00 Urinary Catheter: No Vascular Central Line Catheter: No A/P Problem List: (1) 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 ICD Code: I60.8 Status: Acute (2) Hypertension ICD Code: I10 Status: Chronic (3) Major neurocognitive disorder due to vascular disease, without behavioral disturbance, severe ICD Code: F01.50 Status: Acute (4) Septic shock ICD Code: A41.9 Status: Resolved (5) Hydrocephalus ICD Code: G91.9 Status: Acute (6) Intracranial hemorrhage ICD Code: I62.9 Status: Acute (7) Major neurocognitive disorder as late effect of traumatic brain injury with behavioral disturbance ICD Code: S06.9X9S Status: Acute (8) Encephalopathy ICD Code: G93.40 Status: Acute (9) Sepsis ICD Code: A41.9 Status: Resolved (10) Pneumonia ICD Code: J18.9 Status: Acute (11) Protein-calorie malnutrition, mild ICD Code: E44.1 Status: Acute (12) Acute respiratory failure with hypoxia and hypercarbia ICD Code: J96.01 Status: Acute Assessment and Plan 51-year-old male status post aneurysm related acute intracranial hemorrhage. Intracranial hemorrhage, Status post basilar artery coiling 10/05, Status post FASHION CONSULTANT shunt on 11/24/2016 Chronic encephalopathy Hydrocephalus, Slow improvement -Cont Keppra -Followed by neurology -Speech therapy recommends regular diet with thin liquids, Patient is eating well, D/c TF. -Cont PT/OT -Hematology inquiring about CSF samples. While ordered, samples not available at this time. Order cancelled at direction of Dr. James. Acute hypoxic hypercarbic respiratory failure -Tracheostomy 10/23/16, removed, old trach site open to air -Follow respiratory status Cerebral salt wasting: -Follow sodium levels, labs stable -Continue Florinef -By mouth sodium tablets C. difficile colitis, resolved -Completed Flagyl on 10/23 -Follow for diarrhea -Cont Lactinex Hyperglycemia, resolve -Follow blood sugars Hypokalemia, 3.4 12/12. 3.2 12/13, 3.3 12/14, 5.2 12/15 -Increased supplement to 50meq eff BID, labs in am -Follow and replace as needed DVT prophylaxis: SCDs, YOUSIF hose, Lovenox. GI prophylaxis: Protonix. Case discussed with pt, RN (Gume), Speech language Pathologist (Sommer), and Dr. James. Discharge Planning As of 12/06/16 Placement pending Medicaid and SSI approval. Problem Qualifiers (1) Hypertension: Qualified Code: I10 - Essential hypertension Manolo Alvarez Jr. Dec 15, 2016 13:40
--- NOTE | 2016-12-15 19:29 | HHI.PR ---
Subjective Remarks 51 YOWM with TBI,RF,Trach removal No Fever Doing well on RA Tolerates PO diet. No new complaint Up sitting at Nursing station Objective Vital Signs Vital Signs Date Time Temp Pulse Resp B/P Pulse Ox O2 Delivery O2 Flow Rate FiO2 12/15/16 17:45 97.0 103 19 137/83 96 12/15/16 12:46 97.7 100 18 128/85 94 12/15/16 08:48 97.0 105 18 132/85 95 12/15/16 05:00 98.8 101 20 135/84 92 12/15/16 04:00 98.8 101 20 135/84 92 12/15/16 00:00 97.9 80 17 128/80 94 12/14/16 20:00 97.9 114 20 131/87 95 I/O 12/14/16 12/14/16 12/14/16 12/15/16 12/15/16 12/15/16 07:00 15:00 23:00 07:00 15:00 23:00 Intake Total 0 ml 780 ml 400 ml 100 ml 680 ml Output Total 200 ml 0 ml Balance 0 ml 580 ml 400 ml 100 ml 680 ml Intake Oral 0 ml 780 ml 400 ml 100 ml 680 ml Output Urine Total 200 ml 0 ml # Voids 5 2 3 1 # Bowel Movements 0 0 0 0 1 Result Diagram: 12/15/16820 Objective Remarks GENERAL: WBWN male, on Trach collar SKIN: Warm and dry. HEAD: Normocephalic. EYES: No scleral icterus. No injection or drainage. NECK: Supple, trachea midline. No JVD or lymphadenopathy. CARDIOVASCULAR: Regular rate and rhythm without murmurs, gallops, or rubs. RESPIRATORY: Breath sounds equal bilaterally. No accessory muscle use. GASTROINTESTINAL: Abdomen soft, non-tender, nondistended. PEG tube in place MUSCULOSKELETAL: No cyanosis, or edema. BACK: Nontender without obvious deformity. No CVA tenderness. A/P Assessment and Plan RF, s/p Trach remoal Intracranial bleed Hydrocephalous HTN C.diff positive PLAN: Stable on RA DW RN Stable from pulm standpoint Renard Virgen MD Dec 15, 2016 19:29
[2016-12-15] MEDS: ENOXAPARIN SODIUM 40 MG/0.4 ML SYRINGE SQ SCH (22:23)
[2016-12-16] VITALS: BP 126/80; PULSE 105; RESP 20; TEMP 98.4; O2SAT 92
[2016-12-16 03:57] VITALS: BP 126/74; PULSE 94; RESP 20; TEMP 98.5; O2SAT 92
[2016-12-16] MEDS: CHLORHEXIDINE GLUCONATE 2 % 1 PACK (2 CLOTHS) TOP SCH (04:00)
[2016-12-16] MEDS: LABETALOL HCL 100 MG TAB PO SCH ×3 (05:53→21:45)
[2016-12-16 08:00] VITALS: BP 136/89; PULSE 90; RESP 18; TEMP 96.6; O2SAT 98
[2016-12-16] MEDS: QUEtiapine FUMARATE 25 MG TAB PO SCH ×3 (09:52→21:46)
[2016-12-16] MEDS: FLUDROCORTISONE ACETATE 0.1 MG TAB PO SCH ×2 (09:53→21:45)
[2016-12-16] MEDS: amLODIPine BESYLATE 5 MG TAB PO SCH (09:53)
[2016-12-16] MEDS: PRAVASTATIN SOD 40 MG TAB PO SCH (09:53)
[2016-12-16] MEDS: SODIUM CHLORIDE 1 GRAM TAB PO SCH (09:53)
[2016-12-16] MEDS: hydrALAZINE HCL 50 MG TAB PO SCH ×2 (09:53→21:46)
[2016-12-16] MEDS: PANTOPRAZOLE SOD 40 MG DELAYED RELEASE TAB PO SCH (09:53)
[2016-12-16] MEDS: LACTOBACILLUS ACIDOPHILUS TAB PO SCH ×2 (09:53→21:46)
[2016-12-16] MEDS: ARTIFICIAL TEARS OPTH SOLN 15 ML BTL EACH EYE SCH ×3 (09:59→17:38)
[2016-12-16] MEDS: NYSTATIN 100,000 U/GM PWD 15 GM BTL TOPICAL SCH ×3 (09:59→17:38)
[2016-12-16 11:47] LABS: BICARBONATE 25.1 MEQ/L (21.0-32.0); CREATININE 0.88 MG/DL (0.60-1.30)
[2016-12-16 12:39] VITALS: BP 133/81; PULSE 92; RESP 18; TEMP 96.9; O2SAT 96
--- NOTE | 2016-12-16 14:38 | HHI.PR ---
Subjective Remarks Followed for TBI Pt denied fever, body ache,chills, N/V/D, cough, shortness of breath,throat pain , bowel or bladder issues. Pt reported having a "rough night" last evening due to "trying to get involved with" a woman and "going to the aid of number 3". Pt reported currently being in "[place], [place]" and the year is "1995 or 1996". Pt denied fever, cough, shortness of breath, NVD, Discussed with his RN (Gume) who noted pt had no acute events over night. RN said pt still evidences some "impulsive" behavior as evidenced by pt "keeps pulling off his telemetry wires and pulled out his IV last night." No other issues noted or reported. Objective Vitals Vital Signs Date Time Temp Pulse Resp B/P Pulse Ox O2 Delivery O2 Flow Rate FiO2 12/16/16 12:39 96.9 92 18 133/81 96 12/16/16 08:00 96.6 90 18 136/89 98 12/16/16 03:57 98.5 94 20 126/74 92 12/16/16 00:00 98.4 105 20 126/80 92 12/15/16 20:00 97.0 102 20 127/86 96 12/15/16 17:45 97.0 103 19 137/83 96 I/O 12/15/16 12/15/16 12/15/16 12/16/16 12/16/16 12/16/16 07:00 15:00 23:00 07:00 15:00 23:00 Intake Total 100 ml 680 ml 840 ml Balance 100 ml 680 ml 840 ml Intake Oral 100 ml 680 ml 840 ml # Voids 3 1 2 1 # Bowel Movements 0 1 1 Result Diagram: 12/16/16 1013 Imaging No new imaging ordered, pending, or resulted within the past 24 hours. Objective Remarks GENERAL: Pt encountered sitting at nurse's station in a recliner, resting, with eyes closed. He easily awakened. SKIN: Warm and dry.Right side of skull evidencing recent surgery. HEAD: Normocephalic. EYES: No scleral icterus. No injection or drainage. NECK: Supple, trachea midline. No lymphadenopathy. Site of recent T-Tube healing. CARDIOVASCULAR: Regular rate and rhythm without murmurs, gallops, or rubs. RESPIRATORY: Breath sounds equal bilaterally. No accessory muscle use. GASTROINTESTINAL: Abdomen soft, non-tender, nondistended. MUSCULOSKELETAL: No cyanosis, or edema. PSYCHIATRIC: Pt alert and oriented to self. Said he was in [place], [place] and the year was "1995 or 1996". He did not evidence overt signs of anxiety or depression. Affect flat. Mood good. Pleasant and cooperative. Procedures 10/05/16 right frontal twist drill for ventriculostomy placement 10/20/16 arterial line placement 10/23/16 bedside percutaneous tracheostomy under direct bronchoscopic visualization 10/24/16 PEG tube placement at bedside Medications and IVs Current Medications Medications (Trade) Dose Ordered Sig/Nava Route Start Time Stop Time Status Last Admin (Tylenol) 650 mg Q6H PRN PO 10/05/16 02:45 11/24/16 20:17 (Tears Naturale Opth Soln) 1 drop TID EACH EYE 10/05/16 09:00 12/16/16 13:00 (Zofran Inj) 4 mg Q6H PRN IV 10/05/16 02:45 11/27/16 23:26 Miscellaneous Information 1 Q361D XX 10/05/16 02:45 10/05/16 02:45 (Chlorhexidine 2% Cloth) Taper DAILY@04 TOP 10/05/16 04:00 10/01/17 03:59 12/05/16 04:00 (Chlorhexidine 2% Cloth) 3 pack UNSCH PRN TOP 10/05/16 02:45 (Pravachol) 40 mg DAILY PO 10/05/16 09:00 12/16/16 09:53 (Florinef) 0.2 mg Q12HR PO 10/22/16 21:00 12/16/16 09:53 (Lovenox Inj) 40 mg Q24H SQ 10/23/16 21:00 12/15/16 22:23 (Trandate) 100 mg Q8H PO 11/03/16 20:00 12/16/16 13:56 (Apresoline) 50 mg Q12HR PO 11/03/16 19:00 12/16/16 09:53 (Norvasc) 5 mg DAILY PO 11/04/16 09:00 12/16/16 09:53 (Mycostatin Powder) 1 applic TID TOPICAL 11/06/16 09:00 12/16/16 13:00 (Lactinex) 1 tab Q12HR PO 11/06/16 21:00 12/16/16 09:53 (SEROquel) 25 mg BID@09,12 PO 11/07/16 09:00 12/16/16 13:56 (Colace Liq) 100 mg Q12H PRN G-TUBE 11/06/16 17:00 12/11/16 21:59 (Imodium) 2 mg UNSCH PRN PO 11/09/16 09:45 11/29/16 12:57 (Lomotil Tab) 1 tab Q6H PRN PO 11/09/16 09:45 (Benadryl Inj) 50 mg Q6H PRN IV 11/16/16 23:00 11/29/16 23:29 (SEROquel) 25 mg HS PO 11/20/16 21:00 12/15/16 22:24 (Sodium Chloride) 2 gm DAILY PO 11/24/16 09:00 12/16/16 09:53 (Lactulose Liq) 30 ml QID PRN PO 12/09/16 13:45 (K-Lyte Cl Eff) 50 meq Q12HR NG 12/13/16 09:00 Hold 12/15/16 10:21 (Protonix) 40 mg DAILY PO 12/16/16 09:00 12/16/16 09:53 Urinary Catheter: No Vascular Central Line Catheter: No A/P Problem List: (1) 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 ICD Code: I60.8 Status: Acute (2) Hypertension ICD Code: I10 Status: Chronic (3) Major neurocognitive disorder due to vascular disease, without behavioral disturbance, severe ICD Code: F01.50 Status: Acute (4) Septic shock ICD Code: A41.9 Status: Resolved (5) Hydrocephalus ICD Code: G91.9 Status: Acute (6) Intracranial hemorrhage ICD Code: I62.9 Status: Acute (7) Major neurocognitive disorder as late effect of traumatic brain injury with behavioral disturbance ICD Code: S06.9X9S Status: Acute (8) Encephalopathy ICD Code: G93.40 Status: Acute (9) Sepsis ICD Code: A41.9 Status: Resolved (10) Pneumonia ICD Code: J18.9 Status: Acute (11) Protein-calorie malnutrition, mild ICD Code: E44.1 Status: Acute (12) Acute respiratory failure with hypoxia and hypercarbia ICD Code: J96.01 Status: Acute Assessment and Plan 51-year-old male status post aneurysm related acute intracranial hemorrhage. Intracranial hemorrhage, Status post basilar artery coiling 10/05, Status post ENGINEER RF DEPLOYMENT shunt on 11/24/2016 Chronic encephalopathy Hydrocephalus, Slow improvement -Cont Keppra -Followed by neurology -Speech therapy recommends regular diet with thin liquids, Patient is eating well, D/c TF. -Cont PT/OT -Hematology inquiring about CSF samples. While ordered, samples not available at this time. Order cancelled at direction of Dr. James. Acute hypoxic hypercarbic respiratory failure -Tracheostomy 10/23/16, removed, old trach site open to air -Follow respiratory status Cerebral salt wasting: -Follow sodium levels, labs stable -Continue Florinef -By mouth sodium tablets C. difficile colitis, resolved -Completed Flagyl on 10/23 -Follow for diarrhea -Cont Lactinex Hyperglycemia, resolve -Follow blood sugars Hypokalemia, 3.4 12/12. 3.2 12/13, 3.3 12/14, 5.2 12/15, 3.3 12/16 -Increased supplement to 50meq eff BID, labs in am -Follow and replace as needed -Elevation of 12/15 related to hemolysis of sample. Results of 12/16 indicated pt is again hypokalemic. Resume potassium administration. DVT prophylaxis: SCDs, YOUSIF hose, Lovenox. GI prophylaxis: Protonix. Case discussed with pt, RN (Gume) and Dr. James. Discharge Planning As of 12/06/16 Placement pending Medicaid and SSI approval. Problem Qualifiers (1) Hypertension: Qualified Code: I10 - Essential hypertension Manolo Alvarez Jr. PA Dec 16, 2016 14:38
[2016-12-16 15:17] VITALS: BP 114/69; PULSE 93; RESP 16; TEMP 97.2; O2SAT 94
--- NOTE | 2016-12-16 18:18 | HHI.PR ---
Subjective Remarks 51 YOWM with TBI,RF,Trach removal No Fever Doing well on RA Tolerates PO diet. No new complaint Objective Vital Signs Vital Signs Date Time Temp Pulse Resp B/P Pulse Ox O2 Delivery O2 Flow Rate FiO2 12/16/16 15:17 97.2 93 16 114/69 94 12/16/16 12:39 96.9 92 18 133/81 96 12/16/16 08:00 96.6 90 18 136/89 98 12/16/16 03:57 98.5 94 20 126/74 92 12/16/16 00:00 98.4 105 20 126/80 92 12/15/16 20:00 97.0 102 20 127/86 96 I/O 12/15/16 12/15/16 12/15/16 12/16/16 12/16/16 12/16/16 07:00 15:00 23:00 07:00 15:00 23:00 Intake Total 100 ml 680 ml 840 ml Output Total 1 ml Balance 100 ml 680 ml 839 ml Intake Oral 100 ml 680 ml 840 ml Stool Total 1 ml # Voids 3 1 2 2 # Bowel Movements 0 1 1 Result Diagram: 12/16/16 1013 Objective Remarks GENERAL: WBWN male, on Trach collar SKIN: Warm and dry. HEAD: Normocephalic. EYES: No scleral icterus. No injection or drainage. NECK: Supple, trachea midline. No JVD or lymphadenopathy. CARDIOVASCULAR: Regular rate and rhythm without murmurs, gallops, or rubs. RESPIRATORY: Breath sounds equal bilaterally. No accessory muscle use. GASTROINTESTINAL: Abdomen soft, non-tender, nondistended. PEG tube in place MUSCULOSKELETAL: No cyanosis, or edema. BACK: Nontender without obvious deformity. No CVA tenderness. A/P Assessment and Plan RF, s/p Trach remoal Intracranial bleed Hydrocephalous HTN C.diff positive PLAN: Stable on RA DW RN Stable from pulm standpoint Available prn Renard Virgen MD Dec 16, 2016 18:18
[2016-12-16 20:28] VITALS: BP 136/81; PULSE 100; RESP 18; TEMP 97.8; O2SAT 97
[2016-12-16] MEDS: ENOXAPARIN SODIUM 40 MG/0.4 ML SYRINGE SQ SCH (21:45)
[2016-12-16] MEDS: POTASSIUM CHLORIDE 25 MEQ EFFERVESCENT TAB NG SCH (21:46)
[2016-12-17] VITALS: BP 134/78; PULSE 92; RESP 18; TEMP 97.3; O2SAT 97
[2016-12-17] MEDS: CHLORHEXIDINE GLUCONATE 2 % 1 PACK (2 CLOTHS) TOP SCH (03:31)
[2016-12-17 04:30] VITALS: BP 139/85; PULSE 95; RESP 19; TEMP 97.7; O2SAT 100
[2016-12-17] MEDS: LABETALOL HCL 100 MG TAB PO SCH ×3 (04:44→20:32)
[2016-12-17 08:59] VITALS: BP 124/88; PULSE 106; RESP 19; TEMP 97.9; O2SAT 94
[2016-12-17] MEDS: NYSTATIN 100,000 U/GM PWD 15 GM BTL TOPICAL SCH ×3 (09:00→17:24)
[2016-12-17] MEDS: ARTIFICIAL TEARS OPTH SOLN 15 ML BTL EACH EYE SCH ×3 (09:00→17:24)
[2016-12-17] MEDS: hydrALAZINE HCL 50 MG TAB PO SCH ×2 (09:00→20:33)
[2016-12-17] MEDS: POTASSIUM CHLORIDE 25 MEQ EFFERVESCENT TAB NG SCH ×2 (09:00→20:27)
[2016-12-17] MEDS: amLODIPine BESYLATE 5 MG TAB PO SCH (09:00)
[2016-12-17] MEDS: SODIUM CHLORIDE 1 GRAM TAB PO SCH (09:00)
[2016-12-17] MEDS: PRAVASTATIN SOD 40 MG TAB PO SCH (09:01)
[2016-12-17] MEDS: LACTOBACILLUS ACIDOPHILUS TAB PO SCH ×2 (09:01→20:26)
[2016-12-17] MEDS: QUEtiapine FUMARATE 25 MG TAB PO SCH ×3 (09:01→20:33)
[2016-12-17] MEDS: PANTOPRAZOLE SOD 40 MG DELAYED RELEASE TAB PO SCH (09:01)
[2016-12-17] MEDS: FLUDROCORTISONE ACETATE 0.1 MG TAB PO SCH ×2 (09:01→20:26)
[2016-12-17 10:02] LABS: BICARBONATE 27.4 MEQ/L (21.0-32.0); CALCIUM 9.1 MG/DL (8.5-10.1); CREATININE 0.87 MG/DL (0.60-1.30)
[2016-12-17 12:00] VITALS: BP 134/90; PULSE 98; RESP 18; TEMP 98.7; O2SAT 96
--- NOTE | 2016-12-17 13:45 | HHI.PR ---
Subjective Remarks Followed for TBI Pt denied fever, body ache,chills, N/V/D, cough, shortness of breath,throat pain , bowel or bladder issues. Pt reported having an upper back ache that was interfering with sleep. Onset was reported to be late last night early this morning rated as 3-4/10. Pt reported currently located in "[facility] if [facility] know" yet stated the state was "[place]" and the year is "1995 or 1996". Pt denied fever, cough, shortness of breath, NVD, Discussed with his RN (Liana) who noted pt had no acute events over night. RN said pt continues to evidence "impulsive" behavior. No other issues noted or reported. Objective Vitals Vital Signs Date Time Temp Pulse Resp B/P Pulse Ox O2 Delivery O2 Flow Rate FiO2 12/17/16 12:00 98.7 98 18 134/90 96 12/17/16 08:59 97.9 106 19 124/88 94 12/17/16 04:30 97.7 95 19 139/85 100 12/17/16 00:00 97.3 92 18 134/78 97 12/16/16 20:28 97.8 100 18 136/81 97 12/16/16 15:17 97.2 93 16 114/69 94 I/O 12/16/16 12/16/16 12/16/16 12/17/16 12/17/16 12/17/16 07:00 15:00 23:00 07:00 15:00 23:00 Intake Total 840 ml 240 ml Output Total 1 ml Balance 839 ml 240 ml Intake Oral 840 ml 240 ml Stool Total 1 ml # Voids 2 2 5 # Bowel Movements 1 0 Result Diagram: 12/17/16 0908 Imaging No new imaging ordered, pedning, or resulted within the past 24 hours. Objective Remarks GENERAL: Pt encountered laying a bed, resting, with eyes closed. He easily awakened. SKIN: Warm and dry. HEAD: Normocephalic. EYES: No scleral icterus. No injection or drainage. NECK: Supple, trachea midline. No lymphadenopathy. Site of recent T-Tube healing. CARDIOVASCULAR: Regular rate and rhythm without murmurs, gallops, or rubs. RESPIRATORY: Breath sounds equal bilaterally. No accessory muscle use. GASTROINTESTINAL: Abdomen soft, non-tender, nondistended. MUSCULOSKELETAL: No cyanosis, or edema. Slight muscle tightness noted upper thoracic and lower cervical region. PSYCHIATRIC: Pt alert and oriented to self. Pt continues to evidence confusion regarding orientation. He did not evidence overt signs of anxiety or depression. Affect flat. Mood good. Pleasant and cooperative. Procedures 10/05/16 right frontal twist drill for ventriculostomy placement 10/20/16 arterial line placement 10/23/16 bedside percutaneous tracheostomy under direct bronchoscopic visualization 10/24/16 PEG tube placement at bedside Medications and IVs Current Medications Medications (Trade) Dose Ordered Sig/Nava Route Start Time Stop Time Status Last Admin (Tylenol) 650 mg Q6H PRN PO 10/05/16 02:45 11/24/16 20:17 (Tears Naturale Opth Soln) 1 drop TID EACH EYE 10/05/16 09:00 12/17/16 09:00 (Zofran Inj) 4 mg Q6H PRN IV 10/05/16 02:45 11/27/16 23:26 Miscellaneous Information 1 Q361D XX 10/05/16 02:45 10/05/16 02:45 (Chlorhexidine 2% Cloth) Taper DAILY@04 TOP 10/05/16 04:00 10/01/17 03:59 12/05/16 04:00 (Chlorhexidine 2% Cloth) 3 pack UNSCH PRN TOP 10/05/16 02:45 (Pravachol) 40 mg DAILY PO 10/05/16 09:00 12/17/16 09:01 (Florinef) 0.2 mg Q12HR PO 10/22/16 21:00 12/17/16 09:01 (Lovenox Inj) 40 mg Q24H SQ 10/23/16 21:00 12/16/16 21:45 (Trandate) 100 mg Q8H PO 11/03/16 20:00 12/17/16 12:24 (Apresoline) 50 mg Q12HR PO 11/03/16 19:00 12/17/16 09:00 (Norvasc) 5 mg DAILY PO 11/04/16 09:00 12/17/16 09:00 (Mycostatin Powder) 1 applic TID TOPICAL 11/06/16 09:00 12/17/16 09:00 (Lactinex) 1 tab Q12HR PO 11/06/16 21:00 12/17/16 09:01 (SEROquel) 25 mg BID@09,12 PO 11/07/16 09:00 12/17/16 12:24 (Colace Liq) 100 mg Q12H PRN G-TUBE 11/06/16 17:00 12/11/16 21:59 (Imodium) 2 mg UNSCH PRN PO 11/09/16 09:45 11/29/16 12:57 (Lomotil Tab) 1 tab Q6H PRN PO 11/09/16 09:45 (Benadryl Inj) 50 mg Q6H PRN IV 11/16/16 23:00 11/29/16 23:29 (SEROquel) 25 mg HS PO 11/20/16 21:00 12/16/16 21:46 (Sodium Chloride) 2 gm DAILY PO 11/24/16 09:00 12/17/16 09:00 (Lactulose Liq) 30 ml QID PRN PO 12/09/16 13:45 (K-Lyte Cl Eff) 50 meq Q12HR NG 12/13/16 09:00 12/17/16 09:00 (Protonix) 40 mg DAILY PO 12/16/16 09:00 12/17/16 09:01 Urinary Catheter: No A/P Problem List: (1) 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 ICD Code: I60.8 Status: Acute (2) Hypertension ICD Code: I10 Status: Chronic (3) Major neurocognitive disorder due to vascular disease, without behavioral disturbance, severe ICD Code: F01.50 Status: Acute (4) Septic shock ICD Code: A41.9 Status: Resolved (5) Hydrocephalus ICD Code: G91.9 Status: Acute (6) Intracranial hemorrhage ICD Code: I62.9 Status: Acute (7) Major neurocognitive disorder as late effect of traumatic brain injury with behavioral disturbance ICD Code: S06.9X9S Status: Acute (8) Encephalopathy ICD Code: G93.40 Status: Acute (9) Sepsis ICD Code: A41.9 Status: Resolved (10) Pneumonia ICD Code: J18.9 Status: Acute (11) Protein-calorie malnutrition, mild ICD Code: E44.1 Status: Acute (12) Acute respiratory failure with hypoxia and hypercarbia ICD Code: J96.01 Status: Acute Assessment and Plan 51-year-old male status post aneurysm related acute intracranial hemorrhage. 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 -Cont PT/OT -Hematology inquiring about CSF samples. While ordered, samples not available at this time. Order cancelled at direction of Dr. James. Acute hypoxic hypercarbic respiratory failure -Tracheostomy 10/23/16, removed, old trach site open to air -Follow respiratory status Cerebral salt wasting: -Follow sodium levels, labs stable -Continue Florinef -By mouth sodium tablets C. difficile colitis, resolved -Completed Flagyl on 10/23 -Follow for diarrhea -Cont Lactinex Hyperglycemia, resolve -Follow blood sugars Hypokalemia, 3.4 12/12. 3.2 12/13, 3.3 /14, 5.2 /15, 3.3 /16, 3.2 6.17 -Increased supplement to 50meq eff BID, labs in am -Follow and replace as needed -Elevation of 12/15 related to hemolysis of sample. Results of 12/16 indicated pt is again hypokalemic. Resume potassium administration. DVT prophylaxis: SCDs, YOUSIF hose, Lovenox. GI prophylaxis: Protonix. Case discussed with pt, RN (Liana) and Dr. James. Discharge Planning As of 12/06/16 Placement pending Medicaid and SSI approval. Per CM note of 12/13, discharge plan may include discharge to home. Problem Qualifiers (1) Hypertension: Qualified Code: I10 - Essential hypertension Manolo Alvarez Jr. Dec 17, 2016 13:45
[2016-12-17 16:00] VITALS: BP 159/84; PULSE 84; RESP 18; TEMP 96.9; O2SAT 97
[2016-12-17] MEDS: ENOXAPARIN SODIUM 40 MG/0.4 ML SYRINGE SQ SCH (20:33)
[2016-12-17 22:00] VITALS: BP 130/90; PULSE 98; RESP 20; TEMP 98.4; O2SAT 100
[2016-12-18] VITALS (7 sets, daily range): BP systolic 106–148; BP diastolic 64–92; PULSE 78–118; RESP 18–20; TEMP 96.5–99.1; O2SAT 93–100
[2016-12-18] MEDS: CHLORHEXIDINE GLUCONATE 2 % 1 PACK (2 CLOTHS) TOP SCH (04:00)
[2016-12-18] MEDS: LABETALOL HCL 100 MG TAB PO SCH ×3 (05:14→19:50)
[2016-12-18] MEDS: PANTOPRAZOLE SOD 40 MG DELAYED RELEASE TAB PO SCH (08:41)
[2016-12-18] MEDS: QUEtiapine FUMARATE 25 MG TAB PO SCH ×3 (08:41→19:50)
[2016-12-18] MEDS: hydrALAZINE HCL 50 MG TAB PO SCH ×2 (08:41→19:50)
[2016-12-18] MEDS: amLODIPine BESYLATE 5 MG TAB PO SCH (08:41)
[2016-12-18] MEDS: FLUDROCORTISONE ACETATE 0.1 MG TAB PO SCH ×2 (08:41→19:50)
[2016-12-18] MEDS: PRAVASTATIN SOD 40 MG TAB PO SCH (08:41)
[2016-12-18] MEDS: LACTOBACILLUS ACIDOPHILUS TAB PO SCH ×2 (08:41→19:50)
[2016-12-18] MEDS: POTASSIUM CHLORIDE 25 MEQ EFFERVESCENT TAB NG SCH ×2 (08:42→19:50)
[2016-12-18] MEDS: ARTIFICIAL TEARS OPTH SOLN 15 ML BTL EACH EYE SCH ×3 (09:00→18:00)
[2016-12-18] MEDS: NYSTATIN 100,000 U/GM PWD 15 GM BTL TOPICAL SCH ×3 (09:00→18:00)
[2016-12-18] MEDS: SODIUM CHLORIDE 1 GRAM TAB PO SCH (09:00)
[2016-12-18 09:52] LABS: BICARBONATE 25.5 MEQ/L (21.0-32.0); CALCIUM 8.8 MG/DL (8.5-10.1); CREATININE 0.76 MG/DL (0.60-1.30)
--- NOTE | 2016-12-18 14:20 | HHI.PR ---
Subjective Remarks Followed for TBI. Pt reproted feeling "sleepy" this morning. Back pain he endorsed yesterday is improved and "very mild" this visit. Pt denied fever, body ache,chills, N/V/D, cough, shortness of breath,throat pain , bowel or bladder issues. Pt reported currently located in "[place], [place]." Pt denied fever, cough, shortness of breath, NVD, Discussed with his RN ( Piero) who noted pt had no acute events over night. No other issues noted or reported. Objective Vitals Vital Signs Date Time Temp Pulse Resp B/P Pulse Ox O2 Delivery O2 Flow Rate FiO2 12/18/16 12:00 97.0 94 18 116/64 96 12/18/16 08:30 97.6 91 18 131/92 96 12/18/16 03:15 98.6 92 18 134/65 100 12/18/16 01:44 99.1 95 20 139/88 100 12/17/16 22:00 98.4 98 20 130/90 100 12/17/16 16:00 96.9 84 18 159/84 97 I/O 12/17/16 12/17/16 12/17/16 12/18/16 12/18/16 12/18/16 06:59 14:59 22:59 06:59 14:59 22:59 Intake Total 240 ml Balance 240 ml Intake Oral 240 ml # Voids 5 3 1 # Bowel Movements 0 0 Result Diagram: 12/18/16 0823 Imaging Last Impressions Head CT 12/09/16 0000 Signed Impressions: Service Date/Time: Friday, December 09, 2016 17:36 - CONCLUSION: 1. Right ventriculostomy tube remains in place with decrease in ventricular size since November 24. There is some encephalomalacia around the shunt and a probable small infarct in the left basal ganglia. No new hemorrhage or shift. Tip Harris MD Abdomen X-Ray 11/28/16 0000 Signed Impressions: Service Date/Time: Monday, November 28, 2016 16:00 - CONCLUSION: 1. No evidence of bowel obstruction, ileus or perforation. 2. Degenerative changes and scoliosis of the thoracolumbar spine. 3. Degenerative changes involving the hip joints bilaterally. Juan Worley MD Chest X-Ray 11/01/16 0600 Signed Impressions: Service Date/Time: Tuesday, November 01, 2016 04:37 - CONCLUSION: 1. No acute cardiopulmonary disease. Trevin De León MD Transcranial Doppler Study Complete 10/26/16 0700 Signed Impressions: Service Date/Time: Wednesday, October 26, 2016 08:20 - CONCLUSION: Minimal interval improvement with no evidence for vasospasm. Christian Song MD FACR Neck CTA 10/19/16 0000 Signed Impressions: Service Date/Time: Wednesday, October 19, 2016 14:19 - CONCLUSION: Negative for dissection or significant stenosis. Christian Song MD FACR Head CTA 10/19/16 0000 Signed Impressions: Service Date/Time: Wednesday, October 19, 2016 14:19 - CONCLUSION: 1. Interval development of significant vasospasm in the left MCA and SRI territories. 2. Mild vasospasm in the basilar artery.. Gume Mckeon MD Cerebral Arteriogram 10/19/16 0000 Signed Impressions: Service Date/Time: Wednesday, October 19, 2016 16:06 - CONCLUSION: 1. Vasospasm in the left MCA and SRI territories 2. Spasmolytic infusion, left internal carotid artery as above.. 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 Gume Mckeon MD Pelvis X-Ray 10/05/16109 Signed Impressions: Service Date/Time: Wednesday, October 05, 2016 01:22 - CONCLUSION: Unremarkable examination of the pelvis. Ruben Acuña Jr., MD Chest CT 10/05/16109 Signed Impressions: Service Date/Time: Wednesday, October 05, 2016 01:46 - CONCLUSION: 1. No acute intrathoracic abnormality. 2. Bibasilar atelectasis. 3. Cardiomegaly. 4. Prior granulomatous disease. Ruben Acuña Jr., MD Cervical Spine CT 10/05/16109 Signed Impressions: Service Date/Time: Wednesday, October 05, 2016 01:40 - CONCLUSION: 1. No fracture or dislocation. 2. Multilevel degenerative changes. Ruben Acuña Jr., MD Abdomen/Pelvis CT 10/05/16109 Signed Impressions: Service Date/Time: Wednesday, October 05, 2016 01:46 - CONCLUSION: 1. No acute trauma. 2. Rounded area of decreased density involving the pancreatic head. I cannot completely exclude pancreatic head mass. At some point MRI of the pancreas is suggested to further evaluate. 3. Focal area of poor enhancement involving the left kidney. This may relate to an area of parenchymal scarring. I cannot completely exclude a mass. This can be further assessed with MRI as well. Ruben Acuña Jr., MD Objective Remarks GENERAL: Pt encountered laying a bed, resting, with eyes closed. He easily awakened but pt not maintaining high degree of wakefulness. SKIN: Warm and dry. HEAD: Normocephalic. EYES: No scleral icterus. No injection or drainage. NECK: Supple, trachea midline. No lymphadenopathy. Site of recent T-Tube healing. CARDIOVASCULAR: Regular rate and rhythm without murmurs, gallops, or rubs. RESPIRATORY: Breath sounds equal bilaterally. No accessory muscle use. GASTROINTESTINAL: Abdomen soft, non-tender, nondistended. MUSCULOSKELETAL: No cyanosis, or edema. Slight muscle tightness noted upper thoracic and lower cervical region. PSYCHIATRIC: Pt alert and oriented to self and place . He did not evidence overt signs of anxiety or depression. Procedures 10/05/16 right frontal twist drill for ventriculostomy placement 10/20/16 arterial line placement 10/23/16 bedside percutaneous tracheostomy under direct bronchoscopic visualization 10/24/16 PEG tube placement at bedside Medications and IVs Current Medications Medications (Trade) Dose Ordered Sig/Nava Route Start Time Stop Time Status Last Admin (Tylenol) 650 mg Q6H PRN PO 10/05/16 02:45 11/24/16 20:17 (Tears Naturale Opth Soln) 1 drop TID EACH EYE 10/05/16 09:00 12/18/16 09:00 (Zofran Inj) 4 mg Q6H PRN IV 10/05/16 02:45 11/27/16 23:26 Miscellaneous Information 1 Q361D XX 10/05/16 02:45 10/05/16 02:45 (Chlorhexidine 2% Cloth) Taper DAILY@04 TOP 10/05/16 04:00 10/01/17 03:59 12/05/16 04:00 (Chlorhexidine 2% Cloth) 3 pack UNSCH PRN TOP 10/05/16 02:45 (Pravachol) 40 mg DAILY PO 10/05/16 09:00 12/18/16 08:41 (Florinef) 0.2 mg Q12HR PO 10/22/16 21:00 12/18/16 08:41 (Lovenox Inj) 40 mg Q24H SQ 10/23/16 21:00 12/17/16 20:33 (Trandate) 100 mg Q8H PO 11/03/16 20:00 12/18/16 13:49 (Apresoline) 50 mg Q12HR PO 11/03/16 19:00 12/18/16 08:41 (Norvasc) 5 mg DAILY PO 11/04/16 09:00 12/18/16 08:41 (Mycostatin Powder) 1 applic TID TOPICAL 11/06/16 09:00 12/17/16 09:00 (Lactinex) 1 tab Q12HR PO 11/06/16 21:00 12/18/16 08:41 (SEROquel) 25 mg BID@09,12 PO 11/07/16 09:00 12/18/16 08:41 (Colace Liq) 100 mg Q12H PRN G-TUBE 11/06/16 17:00 12/11/16 21:59 (Imodium) 2 mg UNSCH PRN PO 11/09/16 09:45 11/29/16 12:57 (Lomotil Tab) 1 tab Q6H PRN PO 11/09/16 09:45 (Benadryl Inj) 50 mg Q6H PRN IV 11/16/16 23:00 11/29/16 23:29 (SEROquel) 25 mg HS PO 11/20/16 21:00 12/17/16 20:33 (Sodium Chloride) 2 gm DAILY PO 11/24/16 09:00 12/18/16 09:00 (Lactulose Liq) 30 ml QID PRN PO 12/09/16 13:45 (K-Lyte Cl Eff) 50 meq Q12HR NG 12/13/16 09:00 12/18/16 08:42 (Protonix) 40 mg DAILY PO 12/16/16 09:00 12/18/16 08:41 Urinary Catheter: No Vascular Central Line Catheter: No A/P Problem List: (1) 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 ICD Code: I60.8 Status: Acute (2) Hypertension ICD Code: I10 Status: Chronic (3) Major neurocognitive disorder due to vascular disease, without behavioral disturbance, severe ICD Code: F01.50 Status: Acute (4) Septic shock ICD Code: A41.9 Status: Resolved (5) Hydrocephalus ICD Code: G91.9 Status: Acute (6) Intracranial hemorrhage ICD Code: I62.9 Status: Acute (7) Major neurocognitive disorder as late effect of traumatic brain injury with behavioral disturbance ICD Code: S06.9X9S Status: Acute (8) Encephalopathy ICD Code: G93.40 Status: Acute (9) Sepsis ICD Code: A41.9 Status: Resolved (10) Pneumonia ICD Code: J18.9 Status: Acute (11) Protein-calorie malnutrition, mild ICD Code: E44.1 Status: Acute (12) Acute respiratory failure with hypoxia and hypercarbia ICD Code: J96.01 Status: Acute Assessment and Plan 51-year-old male status post aneurysm related acute intracranial hemorrhage. 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 -Cont PT/OT -Hematology inquiring about CSF samples. While ordered, samples not available at this time. Order cancelled at direction of Dr. James. Acute hypoxic hypercarbic respiratory failure -Tracheostomy 10/23/16, removed, old trach site open to air -Follow respiratory status Cerebral salt wasting: -Follow sodium levels, labs stable -Continue Florinef -By mouth sodium tablets C. difficile colitis, resolved -Completed Flagyl on 10/23 -Follow for diarrhea -Cont Lactinex Hyperglycemia, resolve -Follow blood sugars Hypokalemia, 3.4 12/12. 3.2 12/13, 3.3 12/14, 5.2 12/15, 3.3 12/16, 3.2 12/17, 3.2 -Increased supplement to 50meq eff BID, labs in am -Follow and replace as needed -Elevation of 12/15 related to hemolysis of sample. Results of 12/16 indicated pt is again hypokalemic. Resume potassium administration. DVT prophylaxis: SCDs, YOUSIF hose, Lovenox. GI prophylaxis: Protonix. Case discussed with pt, RN (Piero) and Dr. James. Discharge Planning As of 12/06/16 Placement pending Medicaid and SSI approval. Per CM note of 12/13, discharge plan may include discharge to home. Problem Qualifiers (1) Hypertension: Qualified Code: I10 - Essential hypertension Manolo Alvarez Jr. Dec 18, 2016 14:20
[2016-12-18] MEDS: ENOXAPARIN SODIUM 40 MG/0.4 ML SYRINGE SQ SCH (19:49)
[2016-12-19] VITALS (7 sets, daily range): BP systolic 101–144; BP diastolic 58–84; PULSE 82–103; RESP 18–20; TEMP 96.9–98.7; O2SAT 92–96
[2016-12-19] MEDS: CHLORHEXIDINE GLUCONATE 2 % 1 PACK (2 CLOTHS) TOP SCH ×2 (04:00→21:10)
[2016-12-19] MEDS: LABETALOL HCL 100 MG TAB PO SCH ×4 (05:16→21:09)
[2016-12-19] MEDS: LACTOBACILLUS ACIDOPHILUS TAB PO SCH ×2 (09:00→21:09)
[2016-12-19] MEDS: SODIUM CHLORIDE 1 GRAM TAB PO SCH (09:00)
[2016-12-19] MEDS: ARTIFICIAL TEARS OPTH SOLN 15 ML BTL EACH EYE SCH ×3 (09:00→17:28)
[2016-12-19] MEDS: NYSTATIN 100,000 U/GM PWD 15 GM BTL TOPICAL SCH ×3 (09:00→17:28)
[2016-12-19] MEDS: FLUDROCORTISONE ACETATE 0.1 MG TAB PO SCH (09:01)
[2016-12-19] MEDS: PANTOPRAZOLE SOD 40 MG DELAYED RELEASE TAB PO SCH (09:01)
[2016-12-19] MEDS: hydrALAZINE HCL 50 MG TAB PO SCH (09:01)
[2016-12-19] MEDS: PRAVASTATIN SOD 40 MG TAB PO SCH (09:01)
[2016-12-19] MEDS: QUEtiapine FUMARATE 25 MG TAB PO SCH ×3 (09:02→21:09)
[2016-12-19] MEDS: amLODIPine BESYLATE 5 MG TAB PO SCH (09:02)
[2016-12-19] MEDS: POTASSIUM CHLORIDE 25 MEQ EFFERVESCENT TAB NG SCH ×2 (09:05→21:09)
[2016-12-19 10:09] LABS: BICARBONATE 24.7 MEQ/L (21.0-32.0); CALCIUM 9.1 MG/DL (8.5-10.1); CREATININE 0.83 MG/DL (0.60-1.30)
--- NOTE | 2016-12-19 10:10 | HHI.NSPN ---
(Meir Sánchez) History Chief Complaint: Abdominal pain (Meir Sánchez) Interval History 11/19: Patient wake this morning and fidgeting in bed. Nursing reports that during the night the patient was very agitated and pulling at his lines and remains restrained due to this. He receives Seroquel at 0900 and 1200 daily. He does follow commands. 11/20: Patient asleep but opens eyes to verbal stimuli. He does follow commands although he is fidgeting in bed and attempting to get out by himself. 11/21: Patient awake & alert in cardiac chair. He does verbalise and denies any complaint. He is following commands. Nursing reported that he stood 3 times this morning with Therapy. He went for a repeat CT brain this morning which demonstrated stable ventriculomegaly. 11/22: The patient is asleep in bed. He does not open his eyes but does attempt to verbalise when seen. He is following commands. 11/23: The patient is awake & alert. He follows commands and attempts to verbalise. 11/24: The patient is awake. He is restless in the bed at times. He does follow commands and is able to vocalise some. 11/25: The patient is awake & alert, fidgeting in bed as usual. He does follow commands and shakes his head no when asked if he has a headache. He went for a CLINICAL DOCUMENTATION DEVELOPER shunt yesterday afternoon. 11/30: The patient is awake & alert. He does follow commands. He complains of a headache and pain to the trach. 12/02: The patient was seen to be alert & impulsive prior to being examined this morning. He kept trying to get up out of bed even though there was a sitter with him. When seen the patient did state that he had a headache but no nausea. 12/03: The patient is seen with Dr Mace this morning. He has had a bowel movement in the bed. When asked he does mouth he has some pain to the head. He is disoriented, when asked where he was he said at the doc (dock?) but did not answer yes when asked if he was in the hospital. 12/05: Patient initially seen with Dr Mace this morning. He denied any headache but had some pain to the right side of the head. Trauma notified this practitioner that the patient was complaining of a snowball effect in the peripheral left eye with fog centrally. When seen again the patient stated he had double vision earlier after doing something but no then. He denied any blurry vision or other visual problem and stated his vision was normal. After further questioning the patient states that intermittently when he tries to "upgrade" his vision he sees double/blurry. Nursing reports that the patient has not had any visual complaints for her. 12/12: Patient asleep but awakens to verbal stimuli. He does interact and follows commands but keeps wanting to go back to sleep. He is disoriented as to place and time. 12/15: The patient is doing well this morning. He endorsed numbness to the foot but when he rubbed the other foot over it stated the numbness had resolved. He is still confused, especially to time. 12/19: The patient states he is doing good this morning when seen. He states that he has some abdominal pain but no nausea. He also endorsed some chest pain and shortness of breath earlier but none at present. (Meir Sánchez) System Review Comments HEENT: The patient denies pain to the head or any visual problems. Respiratory: The patient states that he did have some shortness of breath earlier but none at present. He denies any productive cough. Cardiovascular: The patient states he did have some chest pain earlier but none at present. He denies any palpitations or irregular heartbeat. Gastrointestinal: The patient states he does have abdominal pain but denies any nausea. Extremities: The patient denies any arm or leg pain or weakness. Neurological: The patient denies any headache, dizziness, numbness or tingling. (Meir Sánchez) Exam Results Vital Signs Date Time Temp Pulse Resp B/P Pulse Ox O2 Delivery O2 Flow Rate FiO2 12/19/16 08:28 98.5 82 20 115/66 95 Intake and Output 12/18/16 12/18/16 12/19/16 08:00 16:00 00:00 Intake Total 480 ml Balance 480 ml (Meir Sánchez) Physical Examination HEENT: Right parietal & right frontoparietal surgical incisions well healed w/o evident drainage, erythema or streaking. Neck: Active ROM, no nuchal rigidity, no JVD, trached. Respiratory: CTAB w/o W/R/R, equal excursion, non-laboured, on RA, trach decannulated and site closed and healing w/o complication. Cardiovascular: S1S2 w/RRR w/o M/G/R, radial & pedal pulses 2+ bilaterally, cap refill < 2 sec. Gastrointestinal: Abdomen soft, nontender, positive bowel sounds, PEG tube clamped. Neurological: Awake & alert Oriented to self, knows in hospital but not which one, disoriented as to time Follows simple commands Moving all extremities Sensation to light touch grossly intact to all extremities Motor strength 5/5 to all major flexion & extension muscle groups (Meir Sánchez) Medical Decision Making Impression and Plan Impression: 1. 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 Hydrocephalus Postoperative CT scan demonstrates decreased ventricular size w/ encephalomalacia around shunt, a probable small left basal ganglia infarct is note Stable neurologically, with cognitive deficits POD #24 () s/p: CLINICAL DOCUMENTATION DEVELOPER shunt placement Plan: Cognitive/speech therapy eval & tx Activity OOB to cardiac chair Continue PT & OT Okay for Lovenox from NSGY standpoint Ulcer prophylaxis Keep SBP between 120-160 mm Hg Diet per ST Will sign off since no active issues for NSGY. If we may be of further assistance please consult the service as needed. Thank you for allowing us to participate in your patient's care. (Meir Sánchez) Attending Statement I have personally seen and examined the patient on the date of this note. Pertinent documentation and study results have been reviewed by the undersigned. I have personally developed the treatment plan and performed medical decision making. Agree with findings, exam, and treatment plan as noted above. Continues with mild confusion but speech relatively fluent, answering questions appropriately. He knows the date and where he is. He responds appropriately to simple questions and follows commands well with all extremities. Gait is improving Stable from neurosurgery standpoint. No further neurosurgical intervention or follow-up plan at the present time. His shunt appears to be in good position, working well. (Gino Mace MD) Meir Sánchez Dec 19, 2016 10:10 Gino Mace MD Dec 19, 2016 19:23
--- NOTE | 2016-12-19 15:25 | HHI.PR ---
Subjective Remarks Follow-up for intracranial hemorrhage, basilar tip aneurysm. Patient is currently doing well. Initially he appears to be coherent. However during this interview it becomes obvious that he is not coherent in his speech. He denies any chest pain, shortness of breath, fever or chills. Objective Vitals Vital Signs Date Time Temp Pulse Resp B/P Pulse Ox O2 Delivery O2 Flow Rate FiO2 12/19/16 12:52 98.0 88 20 101/58 96 12/19/16 08:28 98.5 82 20 115/66 95 12/19/16 08:05 85 12/19/16 04:00 96.9 83 18 127/75 92 12/19/16 00:00 98.4 90 18 144/84 94 12/18/16 21:51 97 12/18/16 20:00 97.2 118 18 148/81 93 12/18/16 16:00 96.5 78 19 106/68 96 I/O 12/18/16 12/18/16 12/18/16 12/19/16 12/19/16 12/19/16 07:00 15:00 23:00 07:00 15:00 23:00 Intake Total 480 ml 240 ml Balance 480 ml 240 ml Intake Oral 480 ml 240 ml # Voids 3 4 # Bowel Movements 2 1 Result Diagram: 12/19/16 0919 Imaging Last Impressions Head CT 12/09/16 0000 Signed Impressions: Service Date/Time: Friday, December 09, 2016 17:36 - CONCLUSION: 1. Right ventriculostomy tube remains in place with decrease in ventricular size since November 24. There is some encephalomalacia around the shunt and a probable small infarct in the left basal ganglia. No new hemorrhage or shift. Tip Harris MD Abdomen X-Ray 11/28/16 0000 Signed Impressions: Service Date/Time: Monday, November 28, 2016 16:00 - CONCLUSION: 1. No evidence of bowel obstruction, ileus or perforation. 2. Degenerative changes and scoliosis of the thoracolumbar spine. 3. Degenerative changes involving the hip joints bilaterally. Juan Worley MD Chest X-Ray 11/01/16 0600 Signed Impressions: Service Date/Time: Tuesday, November 01, 2016 04:37 - CONCLUSION: 1. No acute cardiopulmonary disease. Trevin De León MD Transcranial Doppler Study Complete 10/26/16 0700 Signed Impressions: Service Date/Time: Wednesday, October 26, 2016 08:20 - CONCLUSION: Minimal interval improvement with no evidence for vasospasm. Christian Sogn MD FACR Neck CTA 10/19/16 0000 Signed Impressions: Service Date/Time: Wednesday, October 19, 2016 14:19 - CONCLUSION: Negative for dissection or significant stenosis. Christian Song MD FACR Head CTA 10/19/16 0000 Signed Impressions: Service Date/Time: Wednesday, October 19, 2016 14:19 - CONCLUSION: 1. Interval development of significant vasospasm in the left MCA and SRI territories. 2. Mild vasospasm in the basilar artery.. Gume Mckeon MD Cerebral Arteriogram 10/19/16 0000 Signed Impressions: Service Date/Time: Wednesday, October 19, 2016 16:06 - CONCLUSION: 1. Vasospasm in the left MCA and SRI territories 2. Spasmolytic infusion, left internal carotid artery as above.. 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 Gume Mckeon MD Pelvis X-Ray 10/05/16109 Signed Impressions: Service Date/Time: Wednesday, October 05, 2016 01:22 - CONCLUSION: Unremarkable examination of the pelvis. Ruben Acuña Jr., MD Chest CT 10/05/16109 Signed Impressions: Service Date/Time: Wednesday, October 05, 2016 01:46 - CONCLUSION: 1. No acute intrathoracic abnormality. 2. Bibasilar atelectasis. 3. Cardiomegaly. 4. Prior granulomatous disease. Ruben Acuña Jr., MD Cervical Spine CT 10/05/16109 Signed Impressions: Service Date/Time: Wednesday, October 05, 2016 01:40 - CONCLUSION: 1. No fracture or dislocation. 2. Multilevel degenerative changes. Ruben Acuña Jr., MD Abdomen/Pelvis CT 10/05/16109 Signed Impressions: Service Date/Time: Wednesday, October 05, 2016 01:46 - CONCLUSION: 1. No acute trauma. 2. Rounded area of decreased density involving the pancreatic head. I cannot completely exclude pancreatic head mass. At some point MRI of the pancreas is suggested to further evaluate. 3. Focal area of poor enhancement involving the left kidney. This may relate to an area of parenchymal scarring. I cannot completely exclude a mass. This can be further assessed with MRI as well. Ruben Acuña Jr., MD Objective Remarks GENERAL: Alert, oriented to self, NAD. SKIN: Warm and dry. HEAD: Normocephalic. EYES: No scleral icterus. No injection or drainage. NECK: Supple, trachea midline. No JVD or lymphadenopathy. CARDIOVASCULAR: Regular rate and rhythm without murmurs, gallops, or rubs. RESPIRATORY: Breath sounds equal bilaterally. No accessory muscle use. GASTROINTESTINAL: Abdomen soft, non-tender, nondistended. MUSCULOSKELETAL: No cyanosis, or edema. BACK: Nontender without obvious deformity. No CVA tenderness. 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 ICD Code: I60.8 Status: Acute (2) Hypertension ICD Code: I10 Status: Chronic (3) Major neurocognitive disorder due to vascular disease, without behavioral disturbance, severe ICD Code: F01.50 Status: Acute (4) Septic shock ICD Code: A41.9 Status: Resolved (5) Hydrocephalus ICD Code: G91.9 Status: Acute (6) Intracranial hemorrhage ICD Code: I62.9 Status: Acute (7) Major neurocognitive disorder as late effect of traumatic brain injury with behavioral disturbance ICD Code: S06.9X9S Status: Acute (8) Encephalopathy ICD Code: G93.40 Status: Acute (9) Sepsis ICD Code: A41.9 Status: Resolved (10) Pneumonia ICD Code: J18.9 Status: Acute (11) Protein-calorie malnutrition, mild ICD Code: E44.1 Status: Acute (12) Acute respiratory failure with hypoxia and hypercarbia ICD Code: J96.01 Status: Acute Assessment and Plan Mr. Nunez is a 51 year old male who was brought to the hospital as a trauma alert due to head injury after he fell in the bathroom and hit his head. Patient was unresponsive for approximately 15 minutes by the time ambulance services arrived. His mentation waxed and waned with GCS ranging from [address] head indicated subarachnoid hemorrhage.Acute - Intracranial hemorrhage - Basilar tip aneurysm - Status post basilar artery coiling on 10/05/2016 and TELE MARKETING EXECUTIVE shunt on 11/24/2016. - Neurosurgery signed off on 12/19/2016. - Acute hypoxic, hypercarbic respiratory failure - s/p tracheostomy 10/23/2016, later removed. Old trach site open to air. - Currently stable on room air. - Cerebral salt wasting - Currently patient is on fludrocortisone 0.2 mg by mouth every 12 hours. - We'll reduce fludrocortisone to 0.2 mg daily. - Continue sodium chloride 2 g by mouth daily. Discontinue Sodium Chloride. - Hypertension - Currently blood pressure 115/66, 101/58. - Patient is on amlodipine 5 mg daily, hydralazine 50 mg every 12 hours, labetalol 100 mg by mouth every 8 hours. - Will try to keep BP below 150/90, preferably closer to 130s systolic. - We will discontinue Hydralazine and evaluate need for other anti- hypertensives. - Hyperlipidemia - Continue Pravastatin - GERD - Continue Protonix Full code. Lovenox. Problem Qualifiers (1) Hypertension: Qualified Code: I10 - Essential hypertension Jessica Martin DO Dec 19, 2016 3:25 pm
[2016-12-19] MEDS: ENOXAPARIN SODIUM 40 MG/0.4 ML SYRINGE SQ SCH (21:09)
[2016-12-20] VITALS: BP 130/80; PULSE 110; RESP 19; TEMP 97.9; O2SAT 98
[2016-12-20 05:11] VITALS: BP 128/88; PULSE 105; RESP 20; TEMP 98.1; O2SAT 97
[2016-12-20] MEDS: LABETALOL HCL 100 MG TAB PO SCH ×3 (05:28→22:22)
[2016-12-20 07:35] VITALS: BP 134/75; PULSE 86; RESP 20; TEMP 98.6; O2SAT 96
[2016-12-20] MEDS: POTASSIUM CHLORIDE 25 MEQ EFFERVESCENT TAB NG SCH ×2 (09:09→22:21)
[2016-12-20] MEDS: PANTOPRAZOLE SOD 40 MG DELAYED RELEASE TAB PO SCH (09:10)
[2016-12-20] MEDS: FLUDROCORTISONE ACETATE 0.1 MG TAB PO SCH (09:10)
[2016-12-20] MEDS: PRAVASTATIN SOD 40 MG TAB PO SCH (09:10)
[2016-12-20] MEDS: QUEtiapine FUMARATE 25 MG TAB PO SCH ×3 (09:10→22:22)
[2016-12-20] MEDS: amLODIPine BESYLATE 5 MG TAB PO SCH (09:10)
[2016-12-20] MEDS: LACTOBACILLUS ACIDOPHILUS TAB PO SCH ×2 (09:10→22:21)
[2016-12-20] MEDS: ARTIFICIAL TEARS OPTH SOLN 15 ML BTL EACH EYE SCH ×3 (09:10→18:00)
[2016-12-20] MEDS: NYSTATIN 100,000 U/GM PWD 15 GM BTL TOPICAL SCH ×3 (09:11→18:00)
--- NOTE | 2016-12-20 11:23 | HHI.PR ---
Subjective Remarks Follow-up for intracranial hemorrhage, basilar tip aneurysm. Patient seen and examined. Patient lying comfortably in bed in no apparent distress. Alert and oriented x 1 to self. Follows all commands. Denies any new acute events overnight. Denies any recent fever, chills, cough, shortness of breath, headache , abdominal pain, nausea, vomiting, diarrhea or dysuria. Tolerating PO intake. Vital signs stable. Objective Vitals Vital Signs Date Time Temp Pulse Resp B/P Pulse Ox O2 Delivery O2 Flow Rate FiO2 12/20/16 07:35 98.6 86 20 134/75 96 12/20/16 05:11 98.1 105 20 128/88 97 12/20/16 00:00 97.9 110 19 130/80 98 12/19/16 20:00 98.7 103 20 140/83 94 12/19/16 17:16 97.8 84 20 143/84 94 12/19/16 12:52 98.0 88 20 101/58 96 I/O 12/19/16 12/19/16 12/19/16 12/20/16 12/20/16 12/20/16 07:00 15:00 23:00 07:00 15:00 23:00 Intake Total 240 ml 660 ml Output Total 125 ml 400 ml Balance 240 ml 535 ml -400 ml Intake Oral 240 ml 660 ml IV Total 0 ml Output Urine Total 125 ml 400 ml # Voids 4 4 # Bowel Movements 1 0 Result Diagram: 12/19/16 0919 Imaging Last Impressions Head CT 12/09/16 0000 Signed Impressions: Service Date/Time: Friday, December 09, 2016 17:36 - CONCLUSION: 1. Right ventriculostomy tube remains in place with decrease in ventricular size since November 24. There is some encephalomalacia around the shunt and a probable small infarct in the left basal ganglia. No new hemorrhage or shift. Tip Harris MD Abdomen X-Ray 11/28/16 0000 Signed Impressions: Service Date/Time: Monday, November 28, 2016 16:00 - CONCLUSION: 1. No evidence of bowel obstruction, ileus or perforation. 2. Degenerative changes and scoliosis of the thoracolumbar spine. 3. Degenerative changes involving the hip joints bilaterally. Juan Worley MD Chest X-Ray 11/01/16 0600 Signed Impressions: Service Date/Time: Tuesday, November 01, 2016 04:37 - CONCLUSION: 1. No acute cardiopulmonary disease. Trevin DeL eón MD Transcranial Doppler Study Complete 10/26/16 0700 Signed Impressions: Service Date/Time: Wednesday, October 26, 2016 08:20 - CONCLUSION: Minimal interval improvement with no evidence for vasospasm. Christian Song MD FACR Neck CTA 10/19/16 0000 Signed Impressions: Service Date/Time: Wednesday, October 19, 2016 14:19 - CONCLUSION: Negative for dissection or significant stenosis. Christian Song MD FACR Head CTA 10/19/16 0000 Signed Impressions: Service Date/Time: Wednesday, October 19, 2016 14:19 - CONCLUSION: 1. Interval development of significant vasospasm in the left MCA and SRI territories. 2. Mild vasospasm in the basilar artery.. Gume Mckeon MD Cerebral Arteriogram 10/19/16 0000 Signed Impressions: Service Date/Time: Wednesday, October 19, 2016 16:06 - CONCLUSION: 1. Vasospasm in the left MCA and SRI territories 2. Spasmolytic infusion, left internal carotid artery as above.. 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 Gume Mckeon MD Pelvis X-Ray 10/05/16109 Signed Impressions: Service Date/Time: Wednesday, October 05, 2016 01:22 - CONCLUSION: Unremarkable examination of the pelvis. Ruben Acuña Jr., MD Chest CT 10/05/16109 Signed Impressions: Service Date/Time: Wednesday, October 05, 2016 01:46 - CONCLUSION: 1. No acute intrathoracic abnormality. 2. Bibasilar atelectasis. 3. Cardiomegaly. 4. Prior granulomatous disease. Ruben Acuña Jr., MD Cervical Spine CT 10/05/16109 Signed Impressions: Service Date/Time: Wednesday, October 05, 2016 01:40 - CONCLUSION: 1. No fracture or dislocation. 2. Multilevel degenerative changes. Ruben Acuña Jr., MD Abdomen/Pelvis CT 10/05/16109 Signed Impressions: Service Date/Time: Wednesday, October 05, 2016 01:46 - CONCLUSION: 1. No acute trauma. 2. Rounded area of decreased density involving the pancreatic head. I cannot completely exclude pancreatic head mass. At some point MRI of the pancreas is suggested to further evaluate. 3. Focal area of poor enhancement involving the left kidney. This may relate to an area of parenchymal scarring. I cannot completely exclude a mass. This can be further assessed with MRI as well. Ruben Acuña Jr., MD Objective Remarks GENERAL: Well-nourished, well-developed male patient, in no apparent distress lying in bed comfortably. Pleasantly confused, oriented x 1 to self. SKIN: No rash. Warm and dry. HEENT: Pupils equal round and reactive. Normocephalic. Extraocular motions intact. No scleral icterus. No injection or drainage. Oral mucosa moist. NECK: Trachea midline. Supple. CARDIOVASCULAR: RRR. No murmur appreciated. RESPIRATORY: Clear to auscultation. Breath sounds equal bilaterally. No wheezes , rales, or rhonchi. GASTROINTESTINAL: Abdomen soft, non-tender, nondistended. No guarding. Abdominal binder in place. PEG in place. MUSCULOSKELETAL: Extremities without clubbing, cyanosis, or edema. NEUROLOGICAL: Awake and alert. Moves all 4 extremities, equal no weakness noted. 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 ICD Code: I60.8 Status: Acute (2) Hypertension ICD Code: I10 Status: Chronic (3) Major neurocognitive disorder due to vascular disease, without behavioral disturbance, severe ICD Code: F01.50 Status: Acute (4) Septic shock ICD Code: A41.9 Status: Resolved (5) Hydrocephalus ICD Code: G91.9 Status: Acute (6) Intracranial hemorrhage ICD Code: I62.9 Status: Acute (7) Major neurocognitive disorder as late effect of traumatic brain injury with behavioral disturbance ICD Code: S06.9X9S Status: Acute (8) Encephalopathy ICD Code: G93.40 Status: Acute (9) Sepsis ICD Code: A41.9 Status: Resolved (10) Pneumonia ICD Code: J18.9 Status: Acute (11) Protein-calorie malnutrition, mild ICD Code: E44.1 Status: Acute (12) Acute respiratory failure with hypoxia and hypercarbia ICD Code: J96.01 Status: Acute Assessment and Plan Mr. Nunez is a 51 year old male who was brought to the hospital as a trauma alert due to head injury after he fell in the bathroom and hit his head. Patient was unresponsive for approximately 15 minutes by the time ambulance services arrived. His mentation waxed and waned with GCS ranging from [address] head indicated subarachnoid hemorrhage, acute. Intracranial hemorrhage Basilar tip aneurysm - Status post basilar artery coiling on 10/05/[address] REGISTRY OFFICER shunt on 11/24/2016. - Neurosurgery signed off on 12/19/2016. Acute hypoxic, hypercarbic respiratory failure - s/p tracheostomy 10/23/2016, later removed. Old trach site open to air. - Currently stable on room air. Cerebral salt wasting - Fludrocortisone to 0.2 mg daily. Sodium chloride discontinued. Hypertension - Currently blood pressure 128/88, 134/75 - Continue amlodipine 5 mg daily, hydralazine 50 mg every 12 hours, labetalol 100 mg by mouth every 8 hours. - Will try to keep BP below 150/90, preferably closer to 130s systolic. - We will discontinue Hydralazine and evaluate need for other anti- hypertensives. Hyperlipidemia - Continue Pravastatin GERD - Continue Protonix DVT Prophylaxis: Lovenox. Full code. Discussed with patient, RN, and Dr. Martin. Discharge Planning Last CM note: 12/20/16 9:35am: CM checked BAR and Medicaid has not changed. It appears that pt continues to wait for Medicaid. CM will discuss with Sou[employer] to get an update on benefits. Problem Qualifiers (1) Hypertension: Qualified Code: I10 - Essential hypertension Dariela Del Cid Dec 20, 2016 11:23
[2016-12-20 11:46] VITALS: BP 136/96; PULSE 93; RESP 20; TEMP 97.8; O2SAT 96
[2016-12-20 16:10] VITALS: BP 129/91; PULSE 90; RESP 20; TEMP 97; O2SAT 96
[2016-12-20 20:45] VITALS: BP 133/90; PULSE 105; RESP 18; TEMP 97.8; O2SAT 95
[2016-12-20] MEDS: ENOXAPARIN SODIUM 40 MG/0.4 ML SYRINGE SQ SCH (22:22)
[2016-12-21 00:16] VITALS: BP 125/81; PULSE 87; RESP 18; TEMP 97.8; O2SAT 95
[2016-12-21] MEDS: CHLORHEXIDINE GLUCONATE 2 % 1 PACK (2 CLOTHS) TOP SCH (03:27)
[2016-12-21] MEDS: LABETALOL HCL 100 MG TAB PO SCH ×3 (03:27→20:32)
[2016-12-21 04:47] VITALS: BP 128/79; PULSE 86; RESP 19; TEMP 96.2; O2SAT 94
[2016-12-21 08:25] VITALS: BP 137/80; PULSE 88; RESP 17; TEMP 97.7; O2SAT 96
--- NOTE | 2016-12-21 08:27 | HHI.PR ---
Subjective Remarks Follow-up for intracranial hemorrhage, basilar tip aneurysm. Mr. Nunez is currently doing well. His thought process is somewhat incoherent. Her speech is clear. He has any chest pain, shortness of breath, fever or chills. Objective Vitals Vital Signs Date Time Temp Pulse Resp B/P Pulse Ox O2 Delivery O2 Flow Rate FiO2 12/21/16 04:47 96.2 86 19 128/79 94 12/21/16 00:16 97.8 87 18 125/81 95 12/20/16 20:45 97.8 105 18 133/90 95 12/20/16 16:10 97.0 90 20 129/91 96 12/20/16 11:46 97.8 93 20 136/96 96 I/O 12/20/16 12/20/16 12/20/16 12/21/16 12/21/16 12/21/16 07:00 15:00 23:00 07:00 15:00 23:00 Intake Total 360 ml 480 ml Output Total 400 ml Balance -400 ml 360 ml 480 ml Intake Oral 360 ml 480 ml Output Urine Total 400 ml # Voids 4 1 3 # Bowel Movements 0 Result Diagram: 12/19/16 0919 Imaging Last Impressions Head CT 12/09/16 0000 Signed Impressions: Service Date/Time: Friday, December 09, 2016 17:36 - CONCLUSION: 1. Right ventriculostomy tube remains in place with decrease in ventricular size since November 24. There is some encephalomalacia around the shunt and a probable small infarct in the left basal ganglia. No new hemorrhage or shift. Tip Harris MD Abdomen X-Ray 11/28/16 0000 Signed Impressions: Service Date/Time: Monday, November 28, 2016 16:00 - CONCLUSION: 1. No evidence of bowel obstruction, ileus or perforation. 2. Degenerative changes and scoliosis of the thoracolumbar spine. 3. Degenerative changes involving the hip joints bilaterally. Juan Worley MD Chest X-Ray 11/01/16 0600 Signed Impressions: Service Date/Time: Tuesday, November 01, 2016 04:37 - CONCLUSION: 1. No acute cardiopulmonary disease. Trevin De León MD Transcranial Doppler Study Complete 10/26/16 0700 Signed Impressions: Service Date/Time: Wednesday, October 26, 2016 08:20 - CONCLUSION: Minimal interval improvement with no evidence for vasospasm. Christian Song MD FACR Neck CTA 10/19/16 0000 Signed Impressions: Service Date/Time: Wednesday, October 19, 2016 14:19 - CONCLUSION: Negative for dissection or significant stenosis. Christian Song MD FACR Head CTA 10/19/16 0000 Signed Impressions: Service Date/Time: Wednesday, October 19, 2016 14:19 - CONCLUSION: 1. Interval development of significant vasospasm in the left MCA and SRI territories. 2. Mild vasospasm in the basilar artery.. Gume Mckeon MD Cerebral Arteriogram 10/19/16 0000 Signed Impressions: Service Date/Time: Wednesday, October 19, 2016 16:06 - CONCLUSION: 1. Vasospasm in the left MCA and SRI territories 2. Spasmolytic infusion, left internal carotid artery as above.. 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 Gume Mckeon MD Pelvis X-Ray 10/05/16109 Signed Impressions: Service Date/Time: Wednesday, October 05, 2016 01:22 - CONCLUSION: Unremarkable examination of the pelvis. Ruben Acuña Jr., MD Chest CT 10/05/16109 Signed Impressions: Service Date/Time: Wednesday, October 05, 2016 01:46 - CONCLUSION: 1. No acute intrathoracic abnormality. 2. Bibasilar atelectasis. 3. Cardiomegaly. 4. Prior granulomatous disease. Ruben Acuña Jr., MD Cervical Spine CT 10/05/16109 Signed Impressions: Service Date/Time: Wednesday, October 05, 2016 01:40 - CONCLUSION: 1. No fracture or dislocation. 2. Multilevel degenerative changes. Ruben Acuña Jr., MD Abdomen/Pelvis CT 10/05/16109 Signed Impressions: Service Date/Time: Wednesday, October 05, 2016 01:46 - CONCLUSION: 1. No acute trauma. 2. Rounded area of decreased density involving the pancreatic head. I cannot completely exclude pancreatic head mass. At some point MRI of the pancreas is suggested to further evaluate. 3. Focal area of poor enhancement involving the left kidney. This may relate to an area of parenchymal scarring. I cannot completely exclude a mass. This can be further assessed with MRI as well. Ruben Acuña Jr., MD Objective Remarks GENERAL: Alert, oriented to self, NAD. SKIN: Warm and dry. HEAD: Normocephalic. EYES: No scleral icterus. No injection or drainage. NECK: Supple, trachea midline. No JVD or lymphadenopathy. CARDIOVASCULAR: Regular rate and rhythm without murmurs, gallops, or rubs. RESPIRATORY: Breath sounds equal bilaterally. No accessory muscle use. GASTROINTESTINAL: Abdomen soft, non-tender, nondistended. MUSCULOSKELETAL: No cyanosis, or edema. BACK: Nontender without obvious deformity. No CVA tenderness. 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 ICD Code: I60.8 Status: Acute (2) Hypertension ICD Code: I10 Status: Chronic (3) Major neurocognitive disorder due to vascular disease, without behavioral disturbance, severe ICD Code: F01.50 Status: Acute (4) Septic shock ICD Code: A41.9 Status: Resolved (5) Hydrocephalus ICD Code: G91.9 Status: Acute (6) Intracranial hemorrhage ICD Code: I62.9 Status: Acute (7) Major neurocognitive disorder as late effect of traumatic brain injury with behavioral disturbance ICD Code: S06.9X9S Status: Acute (8) Encephalopathy ICD Code: G93.40 Status: Acute (9) Sepsis ICD Code: A41.9 Status: Resolved (10) Pneumonia ICD Code: J18.9 Status: Acute (11) Protein-calorie malnutrition, mild ICD Code: E44.1 Status: Acute (12) Acute respiratory failure with hypoxia and hypercarbia ICD Code: J96.01 Status: Acute Assessment and Plan Mr. Nunez is a 51 year old male who was brought to the hospital as a trauma alert due to head injury after he fell in the bathroom and hit his head. Patient was unresponsive for approximately 15 minutes by the time ambulance services arrived. His mentation waxed and waned with GCS ranging from [address] head indicated subarachnoid hemorrhage, acute. 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 - Neurosurgery signed off on 12/19/2016. Acute hypoxic, hypercarbic respiratory failure - s/p tracheostomy 10/23/2016, later removed. Old trach site open to air. - Currently stable on room air. Cerebral salt wasting - Fludrocortisone to 0.2 mg daily. Sodium chloride discontinued. Hypertension - Currently blood pressure 128/92, 137/80. - Continue amlodipine 5 mg daily, labetalol 100 mg by mouth every 8 hours. - Will try to keep BP below 150/90, preferably closer to 130s systolic. - discontinued Hydralazine and evaluate need for other anti-hypertensives. Hyperlipidemia - Continue Pravastatin GERD - Continue Protonix DVT Prophylaxis: Lovenox. Full code. We will transfer patient to [facility]. Problem Qualifiers (1) Hypertension: Qualified Code: I10 - Essential hypertension Jessica Martin DO Dec 21, 2016 8:26 am
[2016-12-21] MEDS: ARTIFICIAL TEARS OPTH SOLN 15 ML BTL EACH EYE SCH ×3 (08:50→17:54)
[2016-12-21] MEDS: POTASSIUM CHLORIDE 25 MEQ EFFERVESCENT TAB NG SCH ×2 (08:51→20:32)
[2016-12-21] MEDS: NYSTATIN 100,000 U/GM PWD 15 GM BTL TOPICAL SCH ×3 (08:52→17:54)
[2016-12-21] MEDS: PRAVASTATIN SOD 40 MG TAB PO SCH (08:52)
[2016-12-21] MEDS: QUEtiapine FUMARATE 25 MG TAB PO SCH ×3 (08:52→20:32)
[2016-12-21] MEDS: amLODIPine BESYLATE 5 MG TAB PO SCH (08:52)
[2016-12-21] MEDS: LACTOBACILLUS ACIDOPHILUS TAB PO SCH ×2 (08:52→20:32)
[2016-12-21] MEDS: FLUDROCORTISONE ACETATE 0.1 MG TAB PO SCH (08:52)
[2016-12-21] MEDS: PANTOPRAZOLE SOD 40 MG DELAYED RELEASE TAB PO SCH (08:52)
[2016-12-21 11:50] VITALS: BP 128/92; PULSE 92; RESP 17; TEMP 99.8; O2SAT 97
[2016-12-21 15:30] VITALS: BP 134/94; PULSE 84; RESP 17; TEMP 96.9; O2SAT 94
[2016-12-21 20:00] VITALS: BP 127/70; PULSE 88; RESP 20; TEMP 98.3; O2SAT 94
[2016-12-21] MEDS: ENOXAPARIN SODIUM 40 MG/0.4 ML SYRINGE SQ SCH (20:32)
[2016-12-22] VITALS: BP 140/81; PULSE 86; RESP 20; TEMP 97.9; O2SAT 92
[2016-12-22] MEDS: CHLORHEXIDINE GLUCONATE 2 % 1 PACK (2 CLOTHS) TOP SCH (03:29)
[2016-12-22 04:00] VITALS: BP 137/86; PULSE 85; RESP 20; TEMP 97.7; O2SAT 90; O2SAT 95
[2016-12-22] MEDS: LABETALOL HCL 100 MG TAB PO SCH ×3 (04:56→20:31)
[2016-12-22 08:35] VITALS: BP 127/85; PULSE 91; RESP 17; TEMP 97.4; O2SAT 96
--- NOTE | 2016-12-22 10:21 | HHI.PR ---
Subjective Remarks Follow-up for intracranial hemorrhage, basilar tip aneurysm. Patient seen and examined sleeping in bed, awakens to voice. He is alert to self, disoriented to time, place and situation. Follows all commands appropriately. States he slept well. Denies any new acute complaints. Afebrile. VSS. Positive BM. Patient does ambulate well in room, PT following. Objective Vitals Vital Signs Date Time Temp Pulse Resp B/P Pulse Ox O2 Delivery O2 Flow Rate FiO2 12/22/16 08:35 97.4 91 17 127/85 96 12/22/16 04:00 97.7 85 20 137/86 95 12/22/16 00:00 97.9 86 20 140/81 92 12/21/16 20:00 98.3 88 20 127/70 94 12/21/16 15:30 96.9 84 17 134/94 94 12/21/16 11:50 99.8 92 17 128/92 97 I/O 12/21/16 12/21/16 12/21/16 12/22/16 12/22/16 12/22/16 07:00 15:00 23:00 07:00 15:00 23:00 Intake Total 480 ml 480 ml 240 ml Balance 480 ml 480 ml 240 ml Intake Oral 480 ml 480 ml 240 ml # Voids 3 3 2 1 # Bowel Movements 1 Result Diagram: 12/19/16 0919 Imaging Last Impressions Head CT 12/09/16 0000 Signed Impressions: Service Date/Time: Friday, December 09, 2016 17:36 - CONCLUSION: 1. Right ventriculostomy tube remains in place with decrease in ventricular size since November 24. There is some encephalomalacia around the shunt and a probable small infarct in the left basal ganglia. No new hemorrhage or shift. Tip Harris MD Abdomen X-Ray 11/28/16 0000 Signed Impressions: Service Date/Time: Monday, November 28, 2016 16:00 - CONCLUSION: 1. No evidence of bowel obstruction, ileus or perforation. 2. Degenerative changes and scoliosis of the thoracolumbar spine. 3. Degenerative changes involving the hip joints bilaterally. Juan Worley MD Chest X-Ray 11/01/16 0600 Signed Impressions: Service Date/Time: Tuesday, November 01, 2016 04:37 - CONCLUSION: 1. No acute cardiopulmonary disease. Trevin De León MD Transcranial Doppler Study Complete 10/26/16 0700 Signed Impressions: Service Date/Time: Wednesday, October 26, 2016 08:20 - CONCLUSION: Minimal interval improvement with no evidence for vasospasm. Christian Song MD FACR Neck CTA 10/19/16 0000 Signed Impressions: Service Date/Time: Wednesday, October 19, 2016 14:19 - CONCLUSION: Negative for dissection or significant stenosis. Christian Song MD FACR Head CTA 10/19/16 0000 Signed Impressions: Service Date/Time: Wednesday, October 19, 2016 14:19 - CONCLUSION: 1. Interval development of significant vasospasm in the left MCA and SRI territories. 2. Mild vasospasm in the basilar artery.. Gume Mckeon MD Cerebral Arteriogram 10/19/16 0000 Signed Impressions: Service Date/Time: Wednesday, October 19, 2016 16:06 - CONCLUSION: 1. Vasospasm in the left MCA and SRI territories 2. Spasmolytic infusion, left internal carotid artery as above.. 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 Gume Mckeon MD Pelvis X-Ray 10/05/16109 Signed Impressions: Service Date/Time: Wednesday, October 05, 2016 01:22 - CONCLUSION: Unremarkable examination of the pelvis. Ruben Acuña Jr., MD Chest CT 10/05/16109 Signed Impressions: Service Date/Time: Wednesday, October 05, 2016 01:46 - CONCLUSION: 1. No acute intrathoracic abnormality. 2. Bibasilar atelectasis. 3. Cardiomegaly. 4. Prior granulomatous disease. Ruben Acuña Jr., MD Cervical Spine CT 10/05/16109 Signed Impressions: Service Date/Time: Wednesday, October 05, 2016 01:40 - CONCLUSION: 1. No fracture or dislocation. 2. Multilevel degenerative changes. Ruben Acuña Jr., MD Abdomen/Pelvis CT 10/05/16109 Signed Impressions: Service Date/Time: Wednesday, October 05, 2016 01:46 - CONCLUSION: 1. No acute trauma. 2. Rounded area of decreased density involving the pancreatic head. I cannot completely exclude pancreatic head mass. At some point MRI of the pancreas is suggested to further evaluate. 3. Focal area of poor enhancement involving the left kidney. This may relate to an area of parenchymal scarring. I cannot completely exclude a mass. This can be further assessed with MRI as well. Ruben Acuña Jr., MD Objective Remarks GENERAL: Well-nourished, well-developed male patient, in no apparent distress lying in bed comfortably. Pleasantly confused, oriented x 1 to self. SKIN: No rash. Warm and dry. HEENT: Pupils equal round and reactive. Normocephalic. Extraocular motions intact. No scleral icterus. No injection or drainage. Oral mucosa moist. NECK: Trachea midline. Supple. CARDIOVASCULAR: RRR. No murmur appreciated. RESPIRATORY: Clear to auscultation. Breath sounds equal bilaterally. No wheezes , rales, or rhonchi. GASTROINTESTINAL: Abdomen soft, non-tender, nondistended. No guarding. Abdominal binder in place. PEG in place. MUSCULOSKELETAL: Extremities without clubbing, cyanosis, or edema. NEUROLOGICAL: Awake and alert. Moves all 4 extremities, equal no weakness noted. 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 ICD Code: I60.8 Status: Acute (2) Hypertension ICD Code: I10 Status: Chronic (3) Major neurocognitive disorder due to vascular disease, without behavioral disturbance, severe ICD Code: F01.50 Status: Acute (4) Septic shock ICD Code: A41.9 Status: Resolved (5) Hydrocephalus ICD Code: G91.9 Status: Acute (6) Intracranial hemorrhage ICD Code: I62.9 Status: Acute (7) Major neurocognitive disorder as late effect of traumatic brain injury with behavioral disturbance ICD Code: S06.9X9S Status: Acute (8) Encephalopathy ICD Code: G93.40 Status: Acute (9) Sepsis ICD Code: A41.9 Status: Resolved (10) Pneumonia ICD Code: J18.9 Status: Acute (11) Protein-calorie malnutrition, mild ICD Code: E44.1 Status: Acute (12) Acute respiratory failure with hypoxia and hypercarbia ICD Code: J96.01 Status: Acute Assessment and Plan Mr. Nunez is a 51 year old male who was brought to the hospital as a trauma alert due to head injury after he fell in the bathroom and hit his head. Patient was unresponsive for approximately 15 minutes by the time ambulance services arrived. His mentation waxed and waned with GCS ranging from [address] head indicated subarachnoid hemorrhage, acute. 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 - Neurosurgery signed off on 12/19/2016. Acute hypoxic, hypercarbic respiratory failure - s/p tracheostomy 10/23/2016, later removed. Old trach site open to air. - Currently stable on room air. Cerebral salt wasting - Fludrocortisone to 0.2 mg daily. Sodium chloride discontinued. Hypertension - Currently blood pressure 127/85, 136/85 - Continue amlodipine 5 mg daily, hydralazine 50 mg every 12 hours, labetalol 100 mg by mouth every 8 hours. - Will try to keep BP below 150/90, preferably closer to 130s systolic. Hyperlipidemia - Continue Pravastatin GERD - Continue Protonix DVT Prophylaxis: Lovenox. Full code. Discharge Planning Last CM note: 12/20/16 9:35am: CM checked BAR and Medicaid has not changed. It appears that pt continues to wait for Medicaid. CM will discuss with [facility] to get an update on benefits. Problem Qualifiers (1) Hypertension: Qualified Code: I10 - Essential hypertension Dariela Del Cid Dec 22, 2016 10:21 (1) Hypertension: Qualified Code: I10 - Essential hypertension Dariela Del Cid Dec 22, 2016 10:21
[2016-12-22] MEDS: QUEtiapine FUMARATE 25 MG TAB PO SCH ×2 (10:39→20:31)
[2016-12-22] MEDS: FLUDROCORTISONE ACETATE 0.1 MG TAB PO SCH (10:39)
[2016-12-22] MEDS: PANTOPRAZOLE SOD 40 MG DELAYED RELEASE TAB PO SCH (10:39)
[2016-12-22] MEDS: amLODIPine BESYLATE 5 MG TAB PO SCH (10:40)
[2016-12-22] MEDS: PRAVASTATIN SOD 40 MG TAB PO SCH (10:40)
[2016-12-22] MEDS: LACTOBACILLUS ACIDOPHILUS TAB PO SCH ×2 (10:40→20:31)
[2016-12-22 12:39] VITALS: BP 136/85; PULSE 85; RESP 17; TEMP 97.2; O2SAT 95
[2016-12-22 12:46] LABS: BICARBONATE 26.1 MEQ/L (21.0-32.0); CALCIUM 9.5 MG/DL (8.5-10.1); CREATININE 0.97 MG/DL (0.60-1.30)
[2016-12-22 16:45] VITALS: BP 118/73; PULSE 86; RESP 17; TEMP 97.2; O2SAT 96
[2016-12-22 20:00] VITALS: BP 138/81; PULSE 87; RESP 20; TEMP 96.9; O2SAT 95
[2016-12-22] MEDS: diphenhydrAMINE HCL 50 MG CAP PO PRN (20:31)
[2016-12-22] MEDS: POTASSIUM CHLORIDE 25 MEQ EFFERVESCENT TAB NG SCH (20:31)
[2016-12-22] MEDS: ENOXAPARIN SODIUM 40 MG/0.4 ML SYRINGE SQ SCH (20:31)
[2016-12-22] MEDS ORDERED: HALOPERIDOL LACTATE 5 MG/ML AMP IM ONE (22:30)
[2016-12-23] MEDS: CHLORHEXIDINE GLUCONATE 2 % 1 PACK (2 CLOTHS) TOP SCH (03:14)
[2016-12-23] MEDS: LABETALOL HCL 100 MG TAB PO SCH ×3 (04:00→20:27)
[2016-12-23 04:32] VITALS: BP 92/53; PULSE 75; RESP 15; TEMP 96.6; O2SAT 95
[2016-12-23 08:00] VITALS: BP 132/87; PULSE 86; RESP 18; TEMP 97.3; O2SAT 95
[2016-12-23] MEDS: NYSTATIN 100,000 U/GM PWD 15 GM BTL TOPICAL SCH ×3 (08:48→17:09)
[2016-12-23] MEDS: amLODIPine BESYLATE 5 MG TAB PO SCH (08:48)
[2016-12-23] MEDS: POTASSIUM CHLORIDE 25 MEQ EFFERVESCENT TAB NG SCH ×2 (08:48→20:27)
[2016-12-23] MEDS: PANTOPRAZOLE SOD 40 MG DELAYED RELEASE TAB PO SCH (08:48)
[2016-12-23] MEDS: PRAVASTATIN SOD 40 MG TAB PO SCH (08:48)
[2016-12-23] MEDS: LACTOBACILLUS ACIDOPHILUS TAB PO SCH ×2 (08:48→20:27)
[2016-12-23] MEDS: ARTIFICIAL TEARS OPTH SOLN 15 ML BTL EACH EYE SCH ×3 (08:48→17:09)
[2016-12-23] MEDS: FLUDROCORTISONE ACETATE 0.1 MG TAB PO SCH (08:48)
[2016-12-23] MEDS: QUEtiapine FUMARATE 25 MG TAB PO SCH ×3 (08:49→20:27)
--- NOTE | 2016-12-23 09:05 | HHI.PR ---
Subjective Remarks Follow-up for intracranial hemorrhage, basilar tip aneurysm. Patient seen and examined sitting up in chair eating breakfast at nurses station. Patient awake and alert, pleasantly confused. Oriented to self only. Denies any new acute events overnight. Denies any recent fever, chills, cough, sore throat, abdominal pain, n/v, diarrhea or dysuria. Ambulating well. Objective Vitals Vital Signs Date Time Temp Pulse Resp B/P Pulse Ox O2 Delivery O2 Flow Rate FiO2 12/23/16 04:32 96.6 75 15 92/53 95 12/22/16 20:00 96.9 87 20 138/81 95 12/22/16 16:45 97.2 86 17 118/73 96 12/22/16 12:39 97.2 85 17 136/85 95 I/O 12/22/16 12/22/16 12/22/16 12/23/16 12/23/16 12/23/16 07:00 15:00 23:00 07:00 15:00 23:00 Intake Total 240 ml 240 ml Balance 240 ml 240 ml Intake Oral 240 ml 240 ml # Voids 1 3 2 2 # Bowel Movements 0 1 1 Result Diagram: 12/22/16 0956 Imaging Last Impressions Head CT 12/09/16 0000 Signed Impressions: Service Date/Time: Friday, December 09, 2016 17:36 - CONCLUSION: 1. Right ventriculostomy tube remains in place with decrease in ventricular size since November 24. There is some encephalomalacia around the shunt and a probable small infarct in the left basal ganglia. No new hemorrhage or shift. Tip Harris MD Abdomen X-Ray 11/28/16 0000 Signed Impressions: Service Date/Time: Monday, November 28, 2016 16:00 - CONCLUSION: 1. No evidence of bowel obstruction, ileus or perforation. 2. Degenerative changes and scoliosis of the thoracolumbar spine. 3. Degenerative changes involving the hip joints bilaterally. Juan Worley MD Chest X-Ray 11/01/16 0600 Signed Impressions: Service Date/Time: Tuesday, November 01, 2016 04:37 - CONCLUSION: 1. No acute cardiopulmonary disease. Trevin De León MD Transcranial Doppler Study Complete 10/26/16 0700 Signed Impressions: Service Date/Time: Wednesday, October 26, 2016 08:20 - CONCLUSION: Minimal interval improvement with no evidence for vasospasm. Christian Song MD FACR Neck CTA 10/19/16 0000 Signed Impressions: Service Date/Time: Wednesday, October 19, 2016 14:19 - CONCLUSION: Negative for dissection or significant stenosis. Christian Song MD FACR Head CTA 10/19/16 0000 Signed Impressions: Service Date/Time: Wednesday, October 19, 2016 14:19 - CONCLUSION: 1. Interval development of significant vasospasm in the left MCA and SRI territories. 2. Mild vasospasm in the basilar artery.. Gume Mckeon MD Cerebral Arteriogram 10/19/16 0000 Signed Impressions: Service Date/Time: Wednesday, October 19, 2016 16:06 - CONCLUSION: 1. Vasospasm in the left MCA and SRI territories 2. Spasmolytic infusion, left internal carotid artery as above.. 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 Gume Mckeon MD Pelvis X-Ray 10/05/16109 Signed Impressions: Service Date/Time: Wednesday, October 05, 2016 01:22 - CONCLUSION: Unremarkable examination of the pelvis. Ruben Acuña Jr., MD Chest CT 10/05/16109 Signed Impressions: Service Date/Time: Wednesday, October 05, 2016 01:46 - CONCLUSION: 1. No acute intrathoracic abnormality. 2. Bibasilar atelectasis. 3. Cardiomegaly. 4. Prior granulomatous disease. Ruben Acuña Jr., MD Cervical Spine CT 10/05/16109 Signed Impressions: Service Date/Time: Wednesday, October 05, 2016 01:40 - CONCLUSION: 1. No fracture or dislocation. 2. Multilevel degenerative changes. Ruben Acuña Jr., MD Abdomen/Pelvis CT 10/05/16109 Signed Impressions: Service Date/Time: Wednesday, October 05, 2016 01:46 - CONCLUSION: 1. No acute trauma. 2. Rounded area of decreased density involving the pancreatic head. I cannot completely exclude pancreatic head mass. At some point MRI of the pancreas is suggested to further evaluate. 3. Focal area of poor enhancement involving the left kidney. This may relate to an area of parenchymal scarring. I cannot completely exclude a mass. This can be further assessed with MRI as well. Ruben Acuña Jr., MD Objective Remarks GENERAL: Well-nourished, well-developed male patient, in no apparent distress lying in bed comfortably. Pleasantly confused, oriented x 1 to self. SKIN: No rash. Warm and dry. HEENT: Pupils equal round and reactive. Normocephalic. Extraocular motions intact. No scleral icterus. No injection or drainage. Oral mucosa moist. NECK: Trachea midline. Supple. CARDIOVASCULAR: RRR. No murmur appreciated. RESPIRATORY: Clear to auscultation. Breath sounds equal bilaterally. No wheezes , rales, or rhonchi. GASTROINTESTINAL: Abdomen soft, non-tender, nondistended. No guarding. Abdominal binder in place. PEG in place. MUSCULOSKELETAL: Extremities without clubbing, cyanosis, or edema. NEUROLOGICAL: Awake and alert. Moves all 4 extremities, equal no weakness noted. 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 ICD Code: I60.8 Status: Acute (2) Hypertension ICD Code: I10 Status: Chronic (3) Major neurocognitive disorder due to vascular disease, without behavioral disturbance, severe ICD Code: F01.50 Status: Acute (4) Septic shock ICD Code: A41.9 Status: Resolved (5) Hydrocephalus ICD Code: G91.9 Status: Acute (6) Intracranial hemorrhage ICD Code: I62.9 Status: Acute (7) Major neurocognitive disorder as late effect of traumatic brain injury with behavioral disturbance ICD Code: S06.9X9S Status: Acute (8) Encephalopathy ICD Code: G93.40 Status: Acute (9) Sepsis ICD Code: A41.9 Status: Resolved (10) Pneumonia ICD Code: J18.9 Status: Acute (11) Protein-calorie malnutrition, mild ICD Code: E44.1 Status: Acute (12) Acute respiratory failure with hypoxia and hypercarbia ICD Code: J96.01 Status: Acute Assessment and Plan Mr. Nunez is a 51 year old male who was brought to the hospital as a trauma alert due to head injury after he fell in the bathroom and hit his head. Patient was unresponsive for approximately 15 minutes by the time ambulance services arrived. His mentation waxed and waned with GCS ranging from [address] head indicated subarachnoid hemorrhage, acute. 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 - Neurosurgery signed off on 12/19/2016. Acute hypoxic, hypercarbic respiratory failure - s/p tracheostomy 10/23/2016, later removed. Old trach site open to air. - Currently stable on room air. Cerebral salt wasting - Fludrocortisone to 0.2 mg daily. Sodium chloride discontinued. Hypertension - Currently blood pressure is systolic in the 130's. - Continue amlodipine 5 mg daily, hydralazine 50 mg every 12 hours, labetalol 100 mg by mouth every 8 hours. - Will try to keep BP below 150/90, preferably closer to 130s systolic. Hyperlipidemia - Continue Pravastatin GERD - Continue Protonix DVT Prophylaxis: Lovenox. Full code. Plan is to transfer [facility] to [facility] residential care while awaiting placement. Discharge Planning Last CM note: 12/20/16 9:35am: CM checked BAR and Medicaid has not changed. It appears that pt continues to wait for Medicaid. CM will discuss with [employer] to get an update on benefits. Problem Qualifiers (1) Hypertension: Qualified Code: I10 - Essential hypertension Dariela Del Cid Dec 23, 2016 09:05
[2016-12-23 12:00] VITALS: BP 124/75; PULSE 90; RESP 18; TEMP 96.7; O2SAT 98
[2016-12-23 16:00] VITALS: BP 118/67; PULSE 78; RESP 18; TEMP 96.9; O2SAT 97
[2016-12-23 20:14] VITALS: BP 138/88; PULSE 93; RESP 20; TEMP 97.6; O2SAT 100
[2016-12-23] MEDS: ENOXAPARIN SODIUM 40 MG/0.4 ML SYRINGE SQ SCH (20:28)
[2016-12-23] MEDS: diphenhydrAMINE HCL 50 MG CAP PO PRN (20:28)
[2016-12-24 02:11] VITALS: BP 105/61; PULSE 95; RESP 20; TEMP 97.8; O2SAT 100
[2016-12-24] MEDS: LABETALOL HCL 100 MG TAB PO SCH ×3 (03:44→21:44)
[2016-12-24] MEDS: CHLORHEXIDINE GLUCONATE 2 % 1 PACK (2 CLOTHS) TOP SCH (03:45)
[2016-12-24 05:47] VITALS: BP 127/82; PULSE 94; RESP 18; TEMP 97.8; O2SAT 100
[2016-12-24 07:52] VITALS: BP 106/57; PULSE 81; RESP 18; TEMP 96; O2SAT 95
[2016-12-24] MEDS: POTASSIUM CHLORIDE 25 MEQ EFFERVESCENT TAB NG SCH ×2 (08:51→21:45)
[2016-12-24] MEDS: LACTOBACILLUS ACIDOPHILUS TAB PO SCH ×2 (08:51→21:44)
[2016-12-24] MEDS: PANTOPRAZOLE SOD 40 MG DELAYED RELEASE TAB PO SCH (08:51)
[2016-12-24] MEDS: amLODIPine BESYLATE 5 MG TAB PO SCH (08:52)
[2016-12-24] MEDS: FLUDROCORTISONE ACETATE 0.1 MG TAB PO SCH (08:52)
[2016-12-24] MEDS: QUEtiapine FUMARATE 25 MG TAB PO SCH ×3 (08:52→21:44)
[2016-12-24] MEDS: PRAVASTATIN SOD 40 MG TAB PO SCH (08:52)
[2016-12-24] MEDS: NYSTATIN 100,000 U/GM PWD 15 GM BTL TOPICAL SCH ×3 (08:53→18:17)
[2016-12-24] MEDS: ARTIFICIAL TEARS OPTH SOLN 15 ML BTL EACH EYE SCH ×3 (08:53→18:17)
[2016-12-24 12:18] VITALS: BP 120/64; PULSE 83; RESP 18; TEMP 98.3; O2SAT 94
--- NOTE | 2016-12-24 13:18 | HHI.PR ---
Subjective Remarks Follow-up for intracranial hemorrhage, basilar tip aneurysm. Patient seen and examined today sleeping in bed, awakens to voice. Pleasant. Confused to time, place and situation. Denies any new acute complaints. Afebrile. Positive BM. Ambulating well. Objective Vitals Vital Signs Date Time Temp Pulse Resp B/P Pulse Ox O2 Delivery O2 Flow Rate FiO2 12/24/16 12:18 98.3 83 18 120/64 94 12/24/16 07:52 96.0 81 18 106/57 95 12/24/16 05:47 97.8 94 18 127/82 100 12/24/16 02:11 97.8 95 20 105/61 100 12/23/16 20:14 97.6 93 20 138/88 100 12/23/16 16:00 96.9 78 18 118/67 97 I/O 12/23/16 12/23/16 12/23/16 12/24/16 12/24/16 12/24/16 07:00 15:00 23:00 07:00 15:00 23:00 Intake Total 600 ml 0 ml Balance 600 ml 0 ml Intake Oral 600 ml IV Total 0 ml 0 ml # Voids 2 2 3 # Bowel Movements 1 Result Diagram: 12/22/16 0956 Imaging Last Impressions Head CT 12/09/16 0000 Signed Impressions: Service Date/Time: Friday, December 09, 2016 17:36 - CONCLUSION: 1. Right ventriculostomy tube remains in place with decrease in ventricular size since November 24. There is some encephalomalacia around the shunt and a probable small infarct in the left basal ganglia. No new hemorrhage or shift. Tip Harris MD Abdomen X-Ray 11/28/16 0000 Signed Impressions: Service Date/Time: Monday, November 28, 2016 16:00 - CONCLUSION: 1. No evidence of bowel obstruction, ileus or perforation. 2. Degenerative changes and scoliosis of the thoracolumbar spine. 3. Degenerative changes involving the hip joints bilaterally. Juan Worley MD Chest X-Ray 11/01/16 0600 Signed Impressions: Service Date/Time: Tuesday, November 01, 2016 04:37 - CONCLUSION: 1. No acute cardiopulmonary disease. Trevin De León MD Transcranial Doppler Study Complete 10/26/16 0700 Signed Impressions: Service Date/Time: Wednesday, October 26, 2016 08:20 - CONCLUSION: Minimal interval improvement with no evidence for vasospasm. Christian Song MD FACR Neck CTA 10/19/16 0000 Signed Impressions: Service Date/Time: Wednesday, October 19, 2016 14:19 - CONCLUSION: Negative for dissection or significant stenosis. Christian Song MD FACR Head CTA 10/19/16 0000 Signed Impressions: Service Date/Time: Wednesday, October 19, 2016 14:19 - CONCLUSION: 1. Interval development of significant vasospasm in the left MCA and SRI territories. 2. Mild vasospasm in the basilar artery.. Gume Mckeon MD Cerebral Arteriogram 10/19/16 0000 Signed Impressions: Service Date/Time: Wednesday, October 19, 2016 16:06 - CONCLUSION: 1. Vasospasm in the left MCA and SRI territories 2. Spasmolytic infusion, left internal carotid artery as above.. 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 Gume Mckeon MD Pelvis X-Ray 10/05/16109 Signed Impressions: Service Date/Time: Wednesday, October 05, 2016 01:22 - CONCLUSION: Unremarkable examination of the pelvis. Ruben Acuña Jr., MD Chest CT 10/05/16109 Signed Impressions: Service Date/Time: Wednesday, October 05, 2016 01:46 - CONCLUSION: 1. No acute intrathoracic abnormality. 2. Bibasilar atelectasis. 3. Cardiomegaly. 4. Prior granulomatous disease. Ruben Acuña Jr., MD Cervical Spine CT 10/05/16109 Signed Impressions: Service Date/Time: Wednesday, October 05, 2016 01:40 - CONCLUSION: 1. No fracture or dislocation. 2. Multilevel degenerative changes. Ruben Acuña Jr., MD Abdomen/Pelvis CT 10/05/16109 Signed Impressions: Service Date/Time: Wednesday, October 05, 2016 01:46 - CONCLUSION: 1. No acute trauma. 2. Rounded area of decreased density involving the pancreatic head. I cannot completely exclude pancreatic head mass. At some point MRI of the pancreas is suggested to further evaluate. 3. Focal area of poor enhancement involving the left kidney. This may relate to an area of parenchymal scarring. I cannot completely exclude a mass. This can be further assessed with MRI as well. Ruben Acuña Jr., MD Objective Remarks GENERAL: Well-nourished, well-developed male patient, in no apparent distress lying in bed comfortably. Pleasantly confused, oriented x 1 to self. SKIN: No rash. Warm and dry. HEENT: Pupils equal round and reactive. Normocephalic. Extraocular motions intact. No scleral icterus. No injection or drainage. Oral mucosa moist. NECK: Trachea midline. Supple. CARDIOVASCULAR: RRR. No murmur appreciated. RESPIRATORY: Clear to auscultation. Breath sounds equal bilaterally. No wheezes , rales, or rhonchi. GASTROINTESTINAL: Abdomen soft, non-tender, nondistended. No guarding. Abdominal binder in place. PEG in place. MUSCULOSKELETAL: Extremities without clubbing, cyanosis, or edema. NEUROLOGICAL: Awake and alert. Moves all 4 extremities, equal no weakness noted. 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 ICD Code: I60.8 Status: Acute (2) Hypertension ICD Code: I10 Status: Chronic (3) Major neurocognitive disorder due to vascular disease, without behavioral disturbance, severe ICD Code: F01.50 Status: Acute (4) Septic shock ICD Code: A41.9 Status: Resolved (5) Hydrocephalus ICD Code: G91.9 Status: Acute (6) Intracranial hemorrhage ICD Code: I62.9 Status: Acute (7) Major neurocognitive disorder as late effect of traumatic brain injury with behavioral disturbance ICD Code: S06.9X9S Status: Acute (8) Encephalopathy ICD Code: G93.40 Status: Acute (9) Sepsis ICD Code: A41.9 Status: Resolved (10) Pneumonia ICD Code: J18.9 Status: Acute (11) Protein-calorie malnutrition, mild ICD Code: E44.1 Status: Acute (12) Acute respiratory failure with hypoxia and hypercarbia ICD Code: J96.01 Status: Acute Assessment and Plan Mr. Nunez is a 51 year old male who was brought to the hospital as a trauma alert due to head injury after he fell in the bathroom and hit his head. Patient was unresponsive for approximately 15 minutes by the time ambulance services arrived. His mentation waxed and waned with GCS ranging from [address] head indicated subarachnoid hemorrhage, acute. 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 - Neurosurgery signed off on 12/19/2016. Acute hypoxic, hypercarbic respiratory failure - s/p tracheostomy 10/23/2016, later removed. Old trach site open to air. - Currently stable on room air. Cerebral salt wasting - Fludrocortisone to 0.2 mg daily. Hypertension - Currently blood pressure is systolic in the 120's. - Continue amlodipine 5 mg daily, hydralazine 50 mg every 12 hours, labetalol 100 mg by mouth every 8 hours. Hyperlipidemia - Continue Pravastatin GERD - Continue Protonix DVT Prophylaxis: Lovenox. Full code. Plan is to transfer patient to [place] for terminal worker care while awaiting placement. Discharge Planning Last CM note: 12/20/16 9:35am: CM checked BAR and Medicaid has not changed. It appears that pt continues to wait for Medicaid. CM will discuss with [facility] to get an update on benefits. Problem Qualifiers (1) Hypertension: Qualified Code: I10 - Essential hypertension Dariela Del Cid Dec 24, 2016 13:18
[2016-12-24 20:56] VITALS: BP 130/71; PULSE 79; RESP 18; TEMP 98.1; O2SAT 99
[2016-12-24] MEDS: ENOXAPARIN SODIUM 40 MG/0.4 ML SYRINGE SQ SCH (21:45)
[2016-12-25 01:07] VITALS: BP 115/67; PULSE 77; RESP 18; TEMP 97.9; O2SAT 100
[2016-12-25] MEDS: CHLORHEXIDINE GLUCONATE 2 % 1 PACK (2 CLOTHS) TOP SCH (04:00)
[2016-12-25 04:32] VITALS: BP 127/79; PULSE 77; RESP 18; TEMP 97.8; O2SAT 100
[2016-12-25] MEDS: LABETALOL HCL 100 MG TAB PO SCH ×3 (04:40→22:04)
[2016-12-25 08:00] VITALS: BP 133/84; PULSE 80; RESP 18; TEMP 96.7; O2SAT 97
[2016-12-25] MEDS: ARTIFICIAL TEARS OPTH SOLN 15 ML BTL EACH EYE SCH ×3 (08:07→16:39)
[2016-12-25] MEDS: amLODIPine BESYLATE 5 MG TAB PO SCH (08:09)
[2016-12-25] MEDS: NYSTATIN 100,000 U/GM PWD 15 GM BTL TOPICAL SCH ×3 (08:09→16:39)
[2016-12-25] MEDS: PANTOPRAZOLE SOD 40 MG DELAYED RELEASE TAB PO SCH (08:09)
[2016-12-25] MEDS: QUEtiapine FUMARATE 25 MG TAB PO SCH ×3 (08:09→22:05)
[2016-12-25] MEDS: PRAVASTATIN SOD 40 MG TAB PO SCH (08:09)
[2016-12-25] MEDS: FLUDROCORTISONE ACETATE 0.1 MG TAB PO SCH (08:09)
[2016-12-25] MEDS: LACTOBACILLUS ACIDOPHILUS TAB PO SCH ×2 (08:09→22:04)
[2016-12-25] MEDS: POTASSIUM CHLORIDE 25 MEQ EFFERVESCENT TAB NG SCH ×2 (08:09→22:04)
[2016-12-25 08:14] LABS: BASOPHIL # 0.1 TH/MM3 (0-0.2); BASOPHIL % 0.9 % (0.0-2.0); EOSINOPHIL # 0.5 TH/MM3 (0-0.4); EOSINOPHIL % 8.3 % (0.0-4.0); HEMATOCRIT 35.1 % (39.0-51.0); HEMOGLOBIN 11.7 GM/DL (13.0-17.0); LYMPH % 27.5 % (9.0-44.0); LYMPHOCYTE # 1.6 TH/MM3 (1.0-4.8); MEAN CORPUSCULAR HGB CONC 33.3 % (32.0-36.0); MEAN PLATELET VOLUME 9.5 FL (7.0-11.0); MONO % 9.6 % (0.0-8.0); MONOCYTE # 0.5 TH/MM3 (0-0.9); NEUT % 53.7 % (16.0-70.0); PLATELET COUNT 216 TH/MM3 (150-450); RED BLOOD COUNT 4.04 MIL/MM3 (4.50-5.90); RED CELL DISTRIBUTION WIDTH 15.4 % (11.6-17.2); WHITE BLOOD COUNT 5.6 TH/MM3 (4.0-11.0)
[2016-12-25 08:23] LABS: BICARBONATE 27.4 MEQ/L (21.0-32.0)
--- NOTE | 2016-12-25 11:36 | HHI.PR ---
Subjective Remarks Follow-up for intracranial hemorrhage, basilar tip aneurysm. Patient seen and examined today sleeping in bed. Awakens to voice, denies any new complaints. Patient up in chair this am eating breakfast at nursing station. No acute events overnight. Vitals stable. Denies pain. Positive BM. Ambulating well. Objective Vitals Vital Signs Date Time Temp Pulse Resp B/P Pulse Ox O2 Delivery O2 Flow Rate FiO2 12/25/16 08:00 96.7 80 18 133/84 97 12/25/16 04:32 97.8 77 18 127/79 100 12/25/16 01:07 97.9 77 18 115/67 100 12/24/16 20:56 98.1 79 18 130/71 99 12/24/16 12:18 98.3 83 18 120/64 94 I/O 12/24/16 12/24/16 12/24/16 12/25/16 12/25/16 12/25/16 07:00 15:00 23:00 07:00 15:00 23:00 Intake Total 0 ml 480 ml Balance 0 ml 480 ml Intake Oral 480 ml IV Total 0 ml # Voids 3 2 2 # Bowel Movements 1 Result Diagram: 12/25/16 0657 12/25/16 0657 Imaging Last Impressions Head CT 12/09/16 0000 Signed Impressions: Service Date/Time: Friday, December 09, 2016 17:36 - CONCLUSION: 1. Right ventriculostomy tube remains in place with decrease in ventricular size since November 24. There is some encephalomalacia around the shunt and a probable small infarct in the left basal ganglia. No new hemorrhage or shift. Tip Harris MD Abdomen X-Ray 11/28/16 0000 Signed Impressions: Service Date/Time: Monday, November 28, 2016 16:00 - CONCLUSION: 1. No evidence of bowel obstruction, ileus or perforation. 2. Degenerative changes and scoliosis of the thoracolumbar spine. 3. Degenerative changes involving the hip joints bilaterally. Juan Worley MD Chest X-Ray 11/01/16 0600 Signed Impressions: Service Date/Time: Tuesday, November 01, 2016 04:37 - CONCLUSION: 1. No acute cardiopulmonary disease. Trevin De León MD Transcranial Doppler Study Complete 10/26/16 0700 Signed Impressions: Service Date/Time: Wednesday, October 26, 2016 08:20 - CONCLUSION: Minimal interval improvement with no evidence for vasospasm. Christian Song MD FACR Neck CTA 10/19/16 0000 Signed Impressions: Service Date/Time: Wednesday, October 19, 2016 14:19 - CONCLUSION: Negative for dissection or significant stenosis. Christian Song MD FACR Head CTA 10/19/16 0000 Signed Impressions: Service Date/Time: Wednesday, October 19, 2016 14:19 - CONCLUSION: 1. Interval development of significant vasospasm in the left MCA and SRI territories. 2. Mild vasospasm in the basilar artery.. Gume Mckeon MD Cerebral Arteriogram 10/19/16 0000 Signed Impressions: Service Date/Time: Wednesday, October 19, 2016 16:06 - CONCLUSION: 1. Vasospasm in the left MCA and SRI territories 2. Spasmolytic infusion, left internal carotid artery as above.. 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 Gume Mckeon MD Pelvis X-Ray 10/05/16109 Signed Impressions: Service Date/Time: Wednesday, October 05, 2016 01:22 - CONCLUSION: Unremarkable examination of the pelvis. Ruben Acuña Jr., MD Chest CT 10/05/16109 Signed Impressions: Service Date/Time: Wednesday, October 05, 2016 01:46 - CONCLUSION: 1. No acute intrathoracic abnormality. 2. Bibasilar atelectasis. 3. Cardiomegaly. 4. Prior granulomatous disease. Ruben Acuña Jr., MD Cervical Spine CT 10/05/16109 Signed Impressions: Service Date/Time: Wednesday, October 05, 2016 01:40 - CONCLUSION: 1. No fracture or dislocation. 2. Multilevel degenerative changes. Ruben Acuña Jr., MD Abdomen/Pelvis CT 10/05/16109 Signed Impressions: Service Date/Time: Wednesday, October 05, 2016 01:46 - CONCLUSION: 1. No acute trauma. 2. Rounded area of decreased density involving the pancreatic head. I cannot completely exclude pancreatic head mass. At some point MRI of the pancreas is suggested to further evaluate. 3. Focal area of poor enhancement involving the left kidney. This may relate to an area of parenchymal scarring. I cannot completely exclude a mass. This can be further assessed with MRI as well. Ruben Acuña Jr., MD Objective Remarks GENERAL: Well-nourished, well-developed male patient, in no apparent distress sleeping in bed comfortably. Pleasantly confused, oriented x 1 to self. SKIN: No rash. Warm and dry. HEENT: Pupils equal round and reactive. Normocephalic. Extraocular motions intact. No scleral icterus. No injection or drainage. Oral mucosa moist. NECK: Trachea midline. Supple. CARDIOVASCULAR: RRR. No murmur appreciated. RESPIRATORY: Clear to auscultation. Breath sounds equal bilaterally. No wheezes , rales, or rhonchi. GASTROINTESTINAL: Abdomen soft, non-tender, nondistended. No guarding. Abdominal binder in place. PEG in place. MUSCULOSKELETAL: Extremities without clubbing, cyanosis, or edema. NEUROLOGICAL: Awake and alert. Moves all 4 extremities, equal no weakness noted. 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 ICD Code: I60.8 Status: Acute (2) Hypertension ICD Code: I10 Status: Chronic (3) Major neurocognitive disorder due to vascular disease, without behavioral disturbance, severe ICD Code: F01.50 Status: Acute (4) Septic shock ICD Code: A41.9 Status: Resolved (5) Hydrocephalus ICD Code: G91.9 Status: Acute (6) Intracranial hemorrhage ICD Code: I62.9 Status: Acute (7) Major neurocognitive disorder as late effect of traumatic brain injury with behavioral disturbance ICD Code: S06.9X9S Status: Acute (8) Encephalopathy ICD Code: G93.40 Status: Acute (9) Sepsis ICD Code: A41.9 Status: Resolved (10) Pneumonia ICD Code: J18.9 Status: Acute (11) Protein-calorie malnutrition, mild ICD Code: E44.1 Status: Acute (12) Acute respiratory failure with hypoxia and hypercarbia ICD Code: J96.01 Status: Acute Assessment and Plan Mr. Nunez is a 51 year old male who was brought to the hospital as a trauma alert due to head injury after he fell in the bathroom and hit his head. Patient was unresponsive for approximately 15 minutes by the time ambulance services arrived. His mentation waxed and waned with GCS ranging from [address] head indicated subarachnoid hemorrhage, acute. 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 - Neurosurgery signed off on 12/19/2016. Acute hypoxic, hypercarbic respiratory failure - s/p tracheostomy 10/23/2016, later removed. Old trach site open to air. - Currently stable on room air. Cerebral salt wasting - Fludrocortisone to 0.2 mg daily. Hypertension - Currently blood pressure is systolic in the 120's. - Continue amlodipine 5 mg daily, hydralazine 50 mg every 12 hours, labetalol 100 mg by mouth every 8 hours. Hyperlipidemia - Continue Pravastatin GERD - Continue Protonix DVT Prophylaxis: Lovenox. Full code. Plan is to transfer patient to [place] for fpc care while awaiting placement. Discharge Planning Difficulty placement outpatient case manager following Problem Qualifiers (1) Hypertension: Qualified Code: I10 - Essential hypertension Dariela Del Cid Dec 25, 2016 11:36 Maggy Chi MD Dec 25, 2016 15:24 Problem Qualifiers (1) Hypertension: Qualified Code: I10 - Essential hypertension Dariela Del Cid Dec 25, 2016 11:36 Maggy Chi MD Dec 25, 2016 15:24
[2016-12-25 12:09] VITALS: BP 118/75; PULSE 84; RESP 18; TEMP 97.3; O2SAT 97
[2016-12-25 16:00] VITALS: BP 119/78; PULSE 82; RESP 18; TEMP 97.7; O2SAT 97
[2016-12-25 20:21] VITALS: BP 130/87; PULSE 78; RESP 18; TEMP 96; O2SAT 97
[2016-12-25] MEDS: ENOXAPARIN SODIUM 40 MG/0.4 ML SYRINGE SQ SCH (22:05)
[2016-12-26 00:31] VITALS: BP 125/76; PULSE 92; RESP 18; TEMP 97; O2SAT 96
[2016-12-26] MEDS: CHLORHEXIDINE GLUCONATE 2 % 1 PACK (2 CLOTHS) TOP SCH (02:40)
[2016-12-26] MEDS: LABETALOL HCL 100 MG TAB PO SCH ×3 (03:35→19:54)
[2016-12-26 04:09] VITALS: BP 104/66; PULSE 91; RESP 20; TEMP 98.1; O2SAT 93
[2016-12-26 08:16] VITALS: BP 135/76; PULSE 79; RESP 18; TEMP 97.5; O2SAT 94
[2016-12-26] MEDS: NYSTATIN 100,000 U/GM PWD 15 GM BTL TOPICAL SCH (09:00)
[2016-12-26] MEDS: ARTIFICIAL TEARS OPTH SOLN 15 ML BTL EACH EYE SCH (09:00)
[2016-12-26] MEDS: PANTOPRAZOLE SOD 40 MG DELAYED RELEASE TAB PO SCH (10:23)
[2016-12-26] MEDS: POTASSIUM CHLORIDE 25 MEQ EFFERVESCENT TAB NG SCH ×2 (10:23→19:54)
[2016-12-26] MEDS: FLUDROCORTISONE ACETATE 0.1 MG TAB PO SCH (10:24)
[2016-12-26] MEDS: LACTOBACILLUS ACIDOPHILUS TAB PO SCH ×2 (10:24→19:54)
[2016-12-26] MEDS: PRAVASTATIN SOD 40 MG TAB PO SCH (10:24)
[2016-12-26] MEDS: amLODIPine BESYLATE 5 MG TAB PO SCH (10:24)
[2016-12-26] MEDS: QUEtiapine FUMARATE 25 MG TAB PO SCH ×3 (10:24→19:54)
[2016-12-26 14:00] LABS: HEMATOCRIT 37.1 % (39.0-51.0); HEMOGLOBIN 11.9 GM/DL (13.0-17.0); MEAN CELL VOLUME 88.2 FL (80.0-100.0); MEAN CORPUSCULAR HEMOGLOBIN 28.2 PG (27.0-34.0); MEAN PLATELET VOLUME 9.6 FL (7.0-11.0); PLATELET COUNT 222 TH/MM3 (150-450); RED BLOOD COUNT 4.21 MIL/MM3 (4.50-5.90); RED CELL DISTRIBUTION WIDTH 15.6 % (11.6-17.2); WHITE BLOOD COUNT 6.1 TH/MM3 (4.0-11.0)
[2016-12-26 14:21] LABS: BICARBONATE 24.3 MEQ/L (21.0-32.0); CALCIUM 8.9 MG/DL (8.5-10.1); CREATININE 1.04 MG/DL (0.60-1.30)
[2016-12-26 16:00] VITALS: BP 108/62; PULSE 71; RESP 17; TEMP 97.2; O2SAT 98
--- NOTE | 2016-12-26 18:32 | HHI.PR ---
Subjective Remarks Follow-up for intracranial hemorrhage, basilar tip aneurysm. Patient seen and examined today, resting in bed. Pt reported he was in [facility] dn the year was 1986. Denies any new complaints. Denied fever, cough, shortness of breath, NVD, bloody urine or stool. reported ongoing low back pain. Per RN (Art) no acute events overnight or since start of shift. RN stated pt continues to have impulsive behaviors and is "unsteady on his feet " when walking. Objective Vitals Vital Signs Date Time Temp Pulse Resp B/P Pulse Ox O2 Delivery O2 Flow Rate FiO2 12/26/16 16:00 97.2 71 17 108/62 98 12/26/16 08:16 97.5 79 18 135/76 94 12/26/16 04:09 98.1 91 20 104/66 93 12/26/16 00:31 97.0 92 18 125/76 96 12/25/16 20:21 96.0 78 18 130/87 97 I/O 12/25/16 12/25/16 12/25/16 12/26/16 12/26/16 12/26/16 07:00 15:00 23:00 07:00 15:00 23:00 Intake Total 600 ml 240 ml Balance 600 ml 240 ml Intake Oral 600 ml 240 ml # Voids 2 4 4 # Bowel Movements 1 0 Result Diagram: 12/26/16 1306 12/26/16 1306 Imaging Last Impressions Head CT 12/09/16 0000 Signed Impressions: Service Date/Time: Friday, December 09, 2016 17:36 - CONCLUSION: 1. Right ventriculostomy tube remains in place with decrease in ventricular size since November 24. There is some encephalomalacia around the shunt and a probable small infarct in the left basal ganglia. No new hemorrhage or shift. Tip Harris MD Abdomen X-Ray 11/28/16 0000 Signed Impressions: Service Date/Time: Monday, November 28, 2016 16:00 - CONCLUSION: 1. No evidence of bowel obstruction, ileus or perforation. 2. Degenerative changes and scoliosis of the thoracolumbar spine. 3. Degenerative changes involving the hip joints bilaterally. Juan Worley MD Chest X-Ray 11/01/16 0600 Signed Impressions: Service Date/Time: Tuesday, November 01, 2016 04:37 - CONCLUSION: 1. No acute cardiopulmonary disease. Trevin De León MD Transcranial Doppler Study Complete 10/26/16 0700 Signed Impressions: Service Date/Time: Wednesday, October 26, 2016 08:20 - CONCLUSION: Minimal interval improvement with no evidence for vasospasm. Christian Song MD FACR Neck CTA 10/19/16 0000 Signed Impressions: Service Date/Time: Wednesday, October 19, 2016 14:19 - CONCLUSION: Negative for dissection or significant stenosis. Christian Song MD FACR Head CTA 10/19/16 0000 Signed Impressions: Service Date/Time: Wednesday, October 19, 2016 14:19 - CONCLUSION: 1. Interval development of significant vasospasm in the left MCA and SRI territories. 2. Mild vasospasm in the basilar artery.. Gume Mckeon MD Cerebral Arteriogram 10/19/16 0000 Signed Impressions: Service Date/Time: Wednesday, October 19, 2016 16:06 - CONCLUSION: 1. Vasospasm in the left MCA and SRI territories 2. Spasmolytic infusion, left internal carotid artery as above.. 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 Gume Mckeon MD Pelvis X-Ray 10/05/16109 Signed Impressions: Service Date/Time: Wednesday, October 05, 2016 01:22 - CONCLUSION: Unremarkable examination of the pelvis. Ruben Acuña Jr., MD Chest CT 10/05/16109 Signed Impressions: Service Date/Time: Wednesday, October 05, 2016 01:46 - CONCLUSION: 1. No acute intrathoracic abnormality. 2. Bibasilar atelectasis. 3. Cardiomegaly. 4. Prior granulomatous disease. Ruben Acuña Jr., MD Cervical Spine CT 10/05/16109 Signed Impressions: Service Date/Time: Wednesday, October 05, 2016 01:40 - CONCLUSION: 1. No fracture or dislocation. 2. Multilevel degenerative changes. Ruben Acuña Jr., MD Abdomen/Pelvis CT 10/05/16109 Signed Impressions: Service Date/Time: Wednesday, October 05, 2016 01:46 - CONCLUSION: 1. No acute trauma. 2. Rounded area of decreased density involving the pancreatic head. I cannot completely exclude pancreatic head mass. At some point MRI of the pancreas is suggested to further evaluate. 3. Focal area of poor enhancement involving the left kidney. This may relate to an area of parenchymal scarring. I cannot completely exclude a mass. This can be further assessed with MRI as well. Ruben Acuña Jr., MD Objective Remarks GENERAL: Pt encountered laying a bed, awaeke and having just returned to the bathroom. SKIN: Warm and dry. HEAD: Normocephalic. EYES: No scleral icterus. No injection or drainage. NECK: Supple, trachea midline. No lymphadenopathy. Site of recent T-Tube healing. CARDIOVASCULAR: Regular rate and rhythm without murmurs, gallops, or rubs. RESPIRATORY: Breath sounds equal bilaterally. No accessory muscle use. GASTROINTESTINAL: Abdomen soft, non-tender, nondistended. Feeding tube is present and per RN is not used. MUSCULOSKELETAL: No cyanosis, or edema. PSYCHIATRIC: Pt alert and oriented to self and state ([place]) . He did not evidence overt signs of anxiety or depression. Procedures 10/05/16 right frontal twist drill for ventriculostomy placement 10/20/16 arterial line placement 10/23/16 bedside percutaneous tracheostomy under direct bronchoscopic visualization 10/24/16 PEG tube placement at bedside Medications and IVs Current Medications Medications (Trade) Dose Ordered Sig/Nava Route Start Time Stop Time Status Last Admin (Tylenol) 650 mg Q6H PRN PO 10/05/16 02:45 11/24/16 20:17 (Tears Naturale Opth Soln) 1 drop TID EACH EYE 10/05/16 09:00 12/26/16 09:00 (Zofran Inj) 4 mg Q6H PRN IV 10/05/16 02:45 11/27/16 23:26 Miscellaneous Information 1 Q361D XX 10/05/16 02:45 10/05/16 02:45 (Chlorhexidine 2% Cloth) Taper DAILY@04 TOP 10/05/16 04:00 10/01/17 03:59 12/05/16 04:00 (Chlorhexidine 2% Cloth) 3 pack UNSCH PRN TOP 10/05/16 02:45 (Pravachol) 40 mg DAILY PO 10/05/16 09:00 12/26/16 10:24 (Lovenox Inj) 40 mg Q24H SQ 10/23/16 21:00 12/25/16 22:05 (Trandate) 100 mg Q8H PO 11/03/16 20:00 12/26/16 12:30 (Norvasc) 5 mg DAILY PO 11/04/16 09:00 12/26/16 10:24 (Mycostatin Powder) 1 applic TID TOPICAL 11/06/16 09:00 12/26/16 09:00 (Lactinex) 1 tab Q12HR PO 11/06/16 21:00 12/26/16 10:24 (SEROquel) 25 mg BID@09,12 PO 11/07/16 09:00 12/26/16 12:30 (Colace Liq) 100 mg Q12H PRN G-TUBE 11/06/16 17:00 12/11/16 21:59 (Imodium) 2 mg UNSCH PRN PO 11/09/16 09:45 11/29/16 12:57 (Lomotil Tab) 1 tab Q6H PRN PO 11/09/16 09:45 (SEROquel) 25 mg HS PO 11/20/16 21:00 12/25/16 22:05 (Lactulose Liq) 30 ml QID PRN PO 12/09/16 13:45 (K-Lyte Cl Eff) 50 meq Q12HR NG 12/13/16 09:00 12/26/16 10:23 (Protonix) 40 mg DAILY PO 12/16/16 09:00 12/26/16 10:23 (Florinef) 0.2 mg DAILY PO 12/20/16 09:00 12/26/16 10:24 (Benadryl) 50 mg Q6H PRN PO 12/20/16 17:45 12/23/16 20:28 Urinary Catheter: No Vascular Central Line Catheter: No A/P Problem List: (1) 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 ICD Code: I60.8 Status: Acute (2) Hypertension ICD Code: I10 Status: Chronic (3) Major neurocognitive disorder due to vascular disease, without behavioral disturbance, severe ICD Code: F01.50 Status: Acute (4) Septic shock ICD Code: A41.9 Status: Resolved (5) Hydrocephalus ICD Code: G91.9 Status: Acute (6) Intracranial hemorrhage ICD Code: I62.9 Status: Acute (7) Major neurocognitive disorder as late effect of traumatic brain injury with behavioral disturbance ICD Code: S06.9X9S Status: Acute (8) Encephalopathy ICD Code: G93.40 Status: Acute (9) Sepsis ICD Code: A41.9 Status: Resolved (10) Pneumonia ICD Code: J18.9 Status: Acute (11) Protein-calorie malnutrition, mild ICD Code: E44.1 Status: Acute (12) Acute respiratory failure with hypoxia and hypercarbia ICD Code: J96.01 Status: Acute Assessment and Plan 51-year-old male status post aneurysm related acute intracranial hemorrhage. Intracranial hemorrhage, Status post basilar artery coiling 10/05, Status post [employer]ER shunt on 11/24/2016 Chronic encephalopathy Hydrocephalus, Slow improvement -Cont Keppra -Followed by neurology -Speech therapy recommends regular diet with thin liquids, Patient is eating well, D/c TF. -Cont PT/OT -Hematology inquiring about CSF samples. While ordered, samples not available at this time. Order cancelled at direction of Dr. James. Acute hypoxic hypercarbic respiratory failure -Tracheostomy 10/23/16, removed, old trach site open to air -Follow respiratory status Cerebral salt wasting: -Follow sodium levels, labs stable -Continue Florinef -By mouth sodium tablets C. difficile colitis, resolved -Completed Flagyl on 10/23 -Follow for diarrhea -Cont Lactinex Hyperglycemia, resolve -Follow blood sugars Hypokalemia, 3.4 12/12. 3.2 12/13, 3.3 12/14, 5.2 12/15, 3.3 12/16, 3.2 12/17, 3.2 -Increased supplement to 50meq eff BID, labs in am -Follow and replace as needed -Elevation of 12/15 related to hemolysis of sample. Results of 12/16 indicated pt is again hypokalemic. Resume potassium administration. DVT prophylaxis: SCDs, YOUSIF hose, Lovenox. GI prophylaxis: Protonix. Case discussed with pt, RN (Art) and Dr. Cortes. Discharge Planning As of 12/06/16 Placement pending Medicaid and SSI approval. Per CM note of 12/13, discharge plan may include discharge to home. Problem Qualifiers (1) Hypertension: Qualified Code: I10 - Essential hypertension Manolo Alvarez Jr. Dec 26, 2016 18:32
[2016-12-26] MEDS: ENOXAPARIN SODIUM 40 MG/0.4 ML SYRINGE SQ SCH (19:54)
[2016-12-26 20:00] VITALS: BP 126/73; PULSE 85; RESP 18; TEMP 97.9; O2SAT 85; O2SAT 95
[2016-12-27 01:25] VITALS: BP 129/77; PULSE 83; RESP 20; TEMP 96.8; O2SAT 93
[2016-12-27] MEDS: CHLORHEXIDINE GLUCONATE 2 % 1 PACK (2 CLOTHS) TOP SCH (04:00)
[2016-12-27] MEDS: LABETALOL HCL 100 MG TAB PO SCH ×3 (05:01→21:46)
[2016-12-27 05:23] VITALS: BP 128/79; PULSE 77; RESP 20; TEMP 96.5; O2SAT 93
[2016-12-27 08:18] VITALS: BP 121/78; PULSE 84; RESP 20; TEMP 96.7; O2SAT 96
[2016-12-27] MEDS: amLODIPine BESYLATE 5 MG TAB PO SCH (09:27)
[2016-12-27] MEDS: LACTOBACILLUS ACIDOPHILUS TAB PO SCH ×2 (09:27→21:45)
[2016-12-27] MEDS: PANTOPRAZOLE SOD 40 MG DELAYED RELEASE TAB PO SCH (09:27)
[2016-12-27] MEDS: PRAVASTATIN SOD 40 MG TAB PO SCH (09:27)
[2016-12-27] MEDS: NYSTATIN 100,000 U/GM PWD 15 GM BTL TOPICAL SCH ×3 (09:28→17:23)
[2016-12-27] MEDS: QUEtiapine FUMARATE 25 MG TAB PO SCH ×3 (09:28→21:45)
[2016-12-27] MEDS: POTASSIUM CHLORIDE 25 MEQ EFFERVESCENT TAB NG SCH ×2 (09:28→21:45)
[2016-12-27] MEDS: ARTIFICIAL TEARS OPTH SOLN 15 ML BTL EACH EYE SCH ×3 (09:28→17:23)
[2016-12-27] MEDS: FLUDROCORTISONE ACETATE 0.1 MG TAB PO SCH (09:28)
[2016-12-27 12:09] VITALS: BP 130/76; PULSE 92; RESP 20; TEMP 97.1; O2SAT 98
--- NOTE | 2016-12-27 13:57 | HHI.PR ---
Subjective Remarks Follow-up for intracranial hemorrhage, basilar tip aneurysm. Patient seen and examined today, resting in bed. Pt reported he was in "[place]" and"somewhere in [place]." He was uncertain of the year and declined to respond to that question. Denies any new complaints. Denied fever, cough, shortness of breath, NVD, bloody urine or stool. Denied presence of ongoing low back pain. Per RN (Margot) no acute events overnight or since start of shift. She stated pt has limited vision and sees shadows. Pt did state his vision is poor, bilaterally and could see swirls of black between his eyes. He was able to correctly state there were three people in the room. No other issues noted or reported. Objective Vitals Vital Signs Date Time Temp Pulse Resp B/P Pulse Ox O2 Delivery O2 Flow Rate FiO2 12/27/16 12:09 97.1 92 20 130/76 98 12/27/16 08:18 96.7 84 20 121/78 96 12/27/16 05:23 96.5 77 20 128/79 93 12/27/16 01:25 96.8 83 20 129/77 93 12/26/16 20:00 97.9 85 18 126/73 95 12/26/16 16:00 97.2 71 17 108/62 98 I/O 12/26/16 12/26/16 12/26/16 12/27/16 12/27/16 12/27/16 07:00 15:00 23:00 07:00 15:00 23:00 Intake Total 240 ml Balance 240 ml Intake Oral 240 ml # Voids 4 2 # Bowel Movements 0 Result Diagram: 12/26/16 1306 12/26/16 1306 Objective Remarks GENERAL: Pt encountered laying a bed, awake and alert. SKIN: Warm and dry. HEAD: Normocephalic. EYES: No scleral icterus. No injection or drainage. NECK: Supple, trachea midline. No lymphadenopathy. Site of recent T-Tube healing. CARDIOVASCULAR: Regular rate and rhythm without murmurs, gallops, or rubs. RESPIRATORY: Breath sounds equal bilaterally. No accessory muscle use. GASTROINTESTINAL: Abdomen soft, non-tender, nondistended. Feeding tube is present and per RN is not used. MUSCULOSKELETAL: No cyanosis, or edema. PSYCHIATRIC: Pt alert and oriented to self and state ([place]) . He did not evidence overt signs of anxiety or depression. Pt reported he had not slept in his room last evening and was unable to say he slept "but it wasn't here." Procedures 10/05/16 right frontal twist drill for ventriculostomy placement 10/20/16 arterial line placement 10/23/16 bedside percutaneous tracheostomy under direct bronchoscopic visualization 10/24/16 PEG tube placement at bedside Medications and IVs Current Medications Medications (Trade) Dose Ordered Sig/Nava Route Start Time Stop Time Status Last Admin (Tylenol) 650 mg Q6H PRN PO 10/05/16 02:45 11/24/16 20:17 (Tears Naturale Opth Soln) 1 drop TID EACH EYE 10/05/16 09:00 12/27/16 09:28 (Zofran Inj) 4 mg Q6H PRN IV 10/05/16 02:45 11/27/16 23:26 Miscellaneous Information 1 Q361D XX 10/05/16 02:45 10/05/16 02:45 (Chlorhexidine 2% Cloth) Taper DAILY@04 TOP 10/05/16 04:00 10/01/17 03:59 12/05/16 04:00 (Chlorhexidine 2% Cloth) 3 pack UNSCH PRN TOP 10/05/16 02:45 (Pravachol) 40 mg DAILY PO 10/05/16 09:00 12/27/16 09:27 (Lovenox Inj) 40 mg Q24H SQ 10/23/16 21:00 12/26/16 19:54 (Trandate) 100 mg Q8H PO 11/03/16 20:00 12/27/16 11:30 (Norvasc) 5 mg DAILY PO 11/04/16 09:00 12/27/16 09:27 (Mycostatin Powder) 1 applic TID TOPICAL 11/06/16 09:00 12/27/16 09:28 (Lactinex) 1 tab Q12HR PO 11/06/16 21:00 12/27/16 09:27 (SEROquel) 25 mg BID@09,12 PO 11/07/16 09:00 12/27/16 11:30 (Colace Liq) 100 mg Q12H PRN G-TUBE 11/06/16 17:00 12/11/16 21:59 (Imodium) 2 mg UNSCH PRN PO 11/09/16 09:45 11/29/16 12:57 (Lomotil Tab) 1 tab Q6H PRN PO 11/09/16 09:45 (SEROquel) 25 mg HS PO 11/20/16 21:00 12/26/16 19:54 (Lactulose Liq) 30 ml QID PRN PO 12/09/16 13:45 (K-Lyte Cl Eff) 50 meq Q12HR NG 12/13/16 09:00 12/27/16 09:28 (Protonix) 40 mg DAILY PO 12/16/16 09:00 12/27/16 09:27 (Florinef) 0.2 mg DAILY PO 12/20/16 09:00 12/27/16 09:28 (Benadryl) 50 mg Q6H PRN PO 12/20/16 17:45 12/23/16 20:28 Urinary Catheter: No A/P Problem List: (1) 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 ICD Code: I60.8 Status: Acute (2) Hypertension ICD Code: I10 Status: Chronic (3) Major neurocognitive disorder due to vascular disease, without behavioral disturbance, severe ICD Code: F01.50 Status: Acute (4) Septic shock ICD Code: A41.9 Status: Resolved (5) Hydrocephalus ICD Code: G91.9 Status: Acute (6) Intracranial hemorrhage ICD Code: I62.9 Status: Acute (7) Major neurocognitive disorder as late effect of traumatic brain injury with behavioral disturbance ICD Code: S06.9X9S Status: Acute (8) Encephalopathy ICD Code: G93.40 Status: Acute (9) Sepsis ICD Code: A41.9 Status: Resolved (10) Pneumonia ICD Code: J18.9 Status: Acute (11) Protein-calorie malnutrition, mild ICD Code: E44.1 Status: Acute (12) Acute respiratory failure with hypoxia and hypercarbia ICD Code: J96.01 Status: Acute Assessment and Plan 51-year-old male status post aneurysm related acute intracranial hemorrhage. Intracranial hemorrhage, Status post basilar artery coiling 10/05, Status post ACCOUNTS PAYABLE ACCOUNTANT shunt on 11/24/2016 Chronic encephalopathy Hydrocephalus, Slow improvement -Cont Keppra -Followed by neurology -Speech therapy recommends regular diet with thin liquids, Patient is eating well, D/c TF. -Cont PT/OT -Hematology inquiring about CSF samples. While ordered, samples not available at this time. Order cancelled at direction of Dr. James. Acute hypoxic hypercarbic respiratory failure -Tracheostomy 10/23/16, removed, old trach site open to air -Follow respiratory status Cerebral salt wasting: -Follow sodium levels, labs stable -Continue Florinef -By mouth sodium tablets C. difficile colitis, resolved -Completed Flagyl on 10/23 -Follow for diarrhea -Cont Lactinex Hyperglycemia, resolve -Follow blood sugars Hypokalemia, 3.4 12/12. 3.2 12/13, 3.3 12/14, 5.2 12/15, 3.3 12/16, 3.2 12/17, 3.2 -Increased supplement to 50meq eff BID, labs in am -Follow and replace as needed -Elevation of 12/15 related to hemolysis of sample. Results of 12/16 indicated pt is again hypokalemic. Resume potassium administration. DVT prophylaxis: SCDs, YOUSIF hose, Lovenox. GI prophylaxis: Protonix. Case discussed with pt, RN (Margot) and Dr. Cortes. Discharge Planning Discharge planning ongoing. Issues seem to be related to finding an accepting facility as well as payor source. It was noted pt may be discharged to home, CM continues to address this possibility. Problem Qualifiers (1) Hypertension: Qualified Code: I10 - Essential hypertension Manolo Alvarez Jr. Dec 27, 2016 13:57
[2016-12-27 16:11] VITALS: BP 112/69; PULSE 77; RESP 20; TEMP 97.4; O2SAT 93
[2016-12-27 20:00] VITALS: BP 126/73; PULSE 83; RESP 18; TEMP 96.4; O2SAT 95
[2016-12-27] MEDS: ENOXAPARIN SODIUM 40 MG/0.4 ML SYRINGE SQ SCH (21:46)
[2016-12-28 01:00] VITALS: BP 107/75; PULSE 96; RESP 18; TEMP 98; O2SAT 98
[2016-12-28 04:00] VITALS: BP 115/75; PULSE 80; RESP 20; TEMP 97.8; O2SAT 98
[2016-12-28] MEDS: LABETALOL HCL 100 MG TAB PO SCH ×3 (04:00→21:27)
[2016-12-28] MEDS: CHLORHEXIDINE GLUCONATE 2 % 1 PACK (2 CLOTHS) TOP SCH ×2 (04:00→21:28)
[2016-12-28 08:00] VITALS: BP 112/70; PULSE 82; RESP 18; TEMP 98.9; O2SAT 93
[2016-12-28] MEDS: FLUDROCORTISONE ACETATE 0.1 MG TAB PO SCH (08:25)
[2016-12-28] MEDS: PANTOPRAZOLE SOD 40 MG DELAYED RELEASE TAB PO SCH (08:26)
[2016-12-28] MEDS: LACTOBACILLUS ACIDOPHILUS TAB PO SCH ×2 (08:26→21:28)
[2016-12-28] MEDS: QUEtiapine FUMARATE 25 MG TAB PO SCH ×3 (08:26→21:28)
[2016-12-28] MEDS: PRAVASTATIN SOD 40 MG TAB PO SCH (08:27)
[2016-12-28] MEDS: amLODIPine BESYLATE 5 MG TAB PO SCH (08:27)
[2016-12-28] MEDS: NYSTATIN 100,000 U/GM PWD 15 GM BTL TOPICAL SCH ×3 (08:29→18:00)
[2016-12-28] MEDS: ARTIFICIAL TEARS OPTH SOLN 15 ML BTL EACH EYE SCH ×3 (08:29→18:18)
[2016-12-28] MEDS: POTASSIUM CHLORIDE 25 MEQ EFFERVESCENT TAB NG SCH ×2 (08:29→21:27)
[2016-12-28 12:00] VITALS: BP 116/75; PULSE 91; RESP 20; TEMP 97.9; O2SAT 98
--- NOTE | 2016-12-28 15:31 | HHI.PR ---
Subjective Remarks Follow-up for intracranial hemorrhage, basilar tip aneurysm. Patient seen and examined today, resting in bed. Pt reported he was in "[place]" and" [place]." He was stated the year as 1986. Pt reported he was out late last night at a local swimming pool and said that was the reason why he was "tired this morning." Denies any new complaints. Denied fever, cough, shortness of breath, NVD, bloody urine or stool. Per RN (Lyric) no acute events overnight or since start of shift. No other issues noted or reported. Objective Vitals Vital Signs Date Time Temp Pulse Resp B/P Pulse Ox O2 Delivery O2 Flow Rate FiO2 12/28/16 12:00 97.9 91 20 116/75 98 12/28/16 08:00 98.9 82 18 112/70 93 12/28/16 04:00 97.8 80 20 115/75 98 12/28/16 01:00 98.0 96 18 107/75 98 12/27/16 20:00 96.4 83 18 126/73 95 12/27/16 16:11 97.4 77 20 112/69 93 I/O 12/27/16 12/27/16 12/27/16 12/28/16 12/28/16 12/28/16 07:00 15:00 23:00 07:00 15:00 23:00 Intake Total 720 ml Balance 720 ml Intake Oral 720 ml # Voids 2 5 4 # Bowel Movements 1 Result Diagram: 12/26/16 1306 12/26/16 1306 Imaging Last Impressions Head CT 12/09/16 0000 Signed Impressions: Service Date/Time: Friday, December 09, 2016 17:36 - CONCLUSION: 1. Right ventriculostomy tube remains in place with decrease in ventricular size since November 24. There is some encephalomalacia around the shunt and a probable small infarct in the left basal ganglia. No new hemorrhage or shift. Tip Harris MD Abdomen X-Ray 11/28/16 0000 Signed Impressions: Service Date/Time: Monday, November 28, 2016 16:00 - CONCLUSION: 1. No evidence of bowel obstruction, ileus or perforation. 2. Degenerative changes and scoliosis of the thoracolumbar spine. 3. Degenerative changes involving the hip joints bilaterally. Juan Worley MD Chest X-Ray 11/01/16 0600 Signed Impressions: Service Date/Time: Tuesday, November 01, 2016 04:37 - CONCLUSION: 1. No acute cardiopulmonary disease. Trevin De León MD Transcranial Doppler Study Complete 10/26/16 0700 Signed Impressions: Service Date/Time: Wednesday, October 26, 2016 08:20 - CONCLUSION: Minimal interval improvement with no evidence for vasospasm. Christian Song MD FACR Neck CTA 10/19/16 0000 Signed Impressions: Service Date/Time: Wednesday, October 19, 2016 14:19 - CONCLUSION: Negative for dissection or significant stenosis. Christian Song MD FACR Head CTA 10/19/16 0000 Signed Impressions: Service Date/Time: Wednesday, October 19, 2016 14:19 - CONCLUSION: 1. Interval development of significant vasospasm in the left MCA and SRI territories. 2. Mild vasospasm in the basilar artery.. Gume Mckeon MD Cerebral Arteriogram 10/19/16 0000 Signed Impressions: Service Date/Time: Wednesday, October 19, 2016 16:06 - CONCLUSION: 1. Vasospasm in the left MCA and SRI territories 2. Spasmolytic infusion, left internal carotid artery as above.. 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 Gume Mckeon MD Pelvis X-Ray 10/05/16109 Signed Impressions: Service Date/Time: Wednesday, October 05, 2016 01:22 - CONCLUSION: Unremarkable examination of the pelvis. Ruben Acuña Jr., MD Chest CT 10/05/16109 Signed Impressions: Service Date/Time: Wednesday, October 05, 2016 01:46 - CONCLUSION: 1. No acute intrathoracic abnormality. 2. Bibasilar atelectasis. 3. Cardiomegaly. 4. Prior granulomatous disease. Ruben Acuña Jr., MD Cervical Spine CT 10/05/16109 Signed Impressions: Service Date/Time: Wednesday, October 05, 2016 01:40 - CONCLUSION: 1. No fracture or dislocation. 2. Multilevel degenerative changes. Ruben Acuña Jr., MD Abdomen/Pelvis CT 10/05/16 0110 Signed Impressions: Service Date/Time: Wednesday, October 05, 2016 01:46 - CONCLUSION: 1. No acute trauma. 2. Rounded area of decreased density involving the pancreatic head. I cannot completely exclude pancreatic head mass. At some point MRI of the pancreas is suggested to further evaluate. 3. Focal area of poor enhancement involving the left kidney. This may relate to an area of parenchymal scarring. I cannot completely exclude a mass. This can be further assessed with MRI as well. Ruben Acuña Jr., MD Objective Remarks GENERAL: Pt encountered laying a bed, awake and alert. SKIN: Warm and dry. HEAD: Normocephalic. EYES: No scleral icterus. No injection or drainage. NECK: Supple, trachea midline. No lymphadenopathy. Site of recent T-Tube healing. CARDIOVASCULAR: Regular rate and rhythm without murmurs, gallops, or rubs. RESPIRATORY: Breath sounds equal bilaterally. No accessory muscle use. GASTROINTESTINAL: Abdomen soft, non-tender, nondistended. Feeding tube is present and per RN is not used. MUSCULOSKELETAL: No cyanosis, or edema. PSYCHIATRIC: Pt alert and oriented to self and state ([place]) . He did not evidence overt signs of anxiety or depression. As noted in subjective section, pt reported having gone swimming late last night. Pt is pleasant and cooperative. Procedures 10/05/16 right frontal twist drill for ventriculostomy placement 10/20/16 arterial line placement 10/23/16 bedside percutaneous tracheostomy under direct bronchoscopic visualization 10/24/16 PEG tube placement at bedside Medications and IVs Current Medications Medications (Trade) Dose Ordered Sig/Nava Route Start Time Stop Time Status Last Admin (Tylenol) 650 mg Q6H PRN PO 10/05/16 02:45 11/24/16 20:17 (Tears Naturale Opth Soln) 1 drop TID EACH EYE 10/05/16 09:00 12/28/16 13:12 (Zofran Inj) 4 mg Q6H PRN IV 10/05/16 02:45 11/27/16 23:26 Miscellaneous Information 1 Q361D XX 10/05/16 02:45 10/05/16 02:45 (Chlorhexidine 2% Cloth) Taper DAILY@04 TOP 10/05/16 04:00 10/01/17 03:59 12/05/16 04:00 (Chlorhexidine 2% Cloth) 3 pack UNSCH PRN TOP 10/05/16 02:45 (Pravachol) 40 mg DAILY PO 10/05/16 09:00 12/28/16 08:27 (Lovenox Inj) 40 mg Q24H SQ 10/23/16 21:00 12/27/16 21:46 (Trandate) 100 mg Q8H PO 11/03/16 20:00 12/28/16 13:08 (Norvasc) 5 mg DAILY PO 11/04/16 09:00 12/28/16 08:27 (Mycostatin Powder) 1 applic TID TOPICAL 11/06/16 09:00 12/28/16 13:00 (Lactinex) 1 tab Q12HR PO 11/06/16 21:00 12/28/16 08:26 (SEROquel) 25 mg BID@09,12 PO 11/07/16 09:00 12/28/16 13:08 (Colace Liq) 100 mg Q12H PRN G-TUBE 11/06/16 17:00 12/11/16 21:59 (Imodium) 2 mg UNSCH PRN PO 11/09/16 09:45 11/29/16 12:57 (Lomotil Tab) 1 tab Q6H PRN PO 11/09/16 09:45 (SEROquel) 25 mg HS PO 11/20/16 21:00 12/27/16 21:45 (Lactulose Liq) 30 ml QID PRN PO 12/09/16 13:45 (K-Lyte Cl Eff) 50 meq Q12HR NG 12/13/16 09:00 12/28/16 08:29 (Protonix) 40 mg DAILY PO 12/16/16 09:00 12/28/16 08:26 (Florinef) 0.2 mg DAILY PO 12/20/16 09:00 12/28/16 08:25 (Benadryl) 50 mg Q6H PRN PO 12/20/16 17:45 12/23/16 20:28 Urinary Catheter: No A/P Problem List: (1) 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 ICD Code: I60.8 Status: Acute (2) Hypertension ICD Code: I10 Status: Chronic (3) Major neurocognitive disorder due to vascular disease, without behavioral disturbance, severe ICD Code: F01.50 Status: Acute (4) Septic shock ICD Code: A41.9 Status: Resolved (5) Hydrocephalus ICD Code: G91.9 Status: Acute (6) Intracranial hemorrhage ICD Code: I62.9 Status: Acute (7) Major neurocognitive disorder as late effect of traumatic brain injury with behavioral disturbance ICD Code: S06.9X9S Status: Acute (8) Encephalopathy ICD Code: G93.40 Status: Acute (9) Sepsis ICD Code: A41.9 Status: Resolved (10) Pneumonia ICD Code: J18.9 Status: Acute (11) Protein-calorie malnutrition, mild ICD Code: E44.1 Status: Acute (12) Acute respiratory failure with hypoxia and hypercarbia ICD Code: J96.01 Status: Acute Assessment and Plan 51-year-old male status post aneurysm related acute intracranial hemorrhage. 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 -Cont PT/OT -Hematology inquiring about CSF samples. While ordered, samples not available at this time. Order cancelled at direction of Dr. James. Acute hypoxic hypercarbic respiratory failure -Tracheostomy 10/23/16, removed, old trach site open to air -Follow respiratory status Cerebral salt wasting: -Follow sodium levels, labs stable -Continue Florinef -By mouth sodium tablets C. difficile colitis, resolved -Completed Flagyl on 10/23 -Follow for diarrhea -Cont Lactinex Hyperglycemia, resolve -Follow blood sugars Hypokalemia, 3.4 12/12. 3.2 12/13, 3.3 12/14, 5.2 12/15, 3.3 12/16, 3.2 12/17, 3.2 -Increased supplement to 50meq eff BID, labs in am -Follow and replace as needed -Elevation of 12/15 related to hemolysis of sample. Results of 12/16 indicated pt is again hypokalemic. Resume potassium administration. DVT prophylaxis: SCDs, YOUSIF hose, Lovenox. GI prophylaxis: Protonix. Case discussed with pt, RN ([facility]) and Dr. Cortes. Discharge Planning Discharge planning ongoing. Issues seem to be related to finding an accepting facility as well as payor source. It was noted pt may be discharged to home, CM continues to address this possibility. Pt's is pursuing guardianship of pt, based on documents she is requesting to be completed. Problem Qualifiers (1) Hypertension: Qualified Code: I10 - Essential hypertension Manolo Alvarez Jr. Dec 28, 2016 15:31
[2016-12-28 16:00] VITALS: BP 127/72; PULSE 79; RESP 20; TEMP 97.2; O2SAT 97
[2016-12-28 20:00] VITALS: BP 122/74; PULSE 78; RESP 20; TEMP 96.7; O2SAT 95
[2016-12-28] MEDS: ENOXAPARIN SODIUM 40 MG/0.4 ML SYRINGE SQ SCH (21:28)
[2016-12-29] VITALS (7 sets, daily range): BP systolic 112–124; BP diastolic 62–78; PULSE 75–95; RESP 18–20; TEMP 97.2–98.6; O2SAT 93–98
[2016-12-29] MEDS: LABETALOL HCL 100 MG TAB PO SCH ×3 (03:04→21:38)
[2016-12-29] MEDS: POTASSIUM CHLORIDE 25 MEQ EFFERVESCENT TAB NG SCH ×2 (08:24→21:38)
[2016-12-29] MEDS: PRAVASTATIN SOD 40 MG TAB PO SCH (08:24)
[2016-12-29] MEDS: ARTIFICIAL TEARS OPTH SOLN 15 ML BTL EACH EYE SCH ×3 (08:24→16:19)
[2016-12-29] MEDS: LACTOBACILLUS ACIDOPHILUS TAB PO SCH ×2 (08:24→21:38)
[2016-12-29] MEDS: FLUDROCORTISONE ACETATE 0.1 MG TAB PO SCH (08:25)
[2016-12-29] MEDS: amLODIPine BESYLATE 5 MG TAB PO SCH (08:25)
[2016-12-29] MEDS: PANTOPRAZOLE SOD 40 MG DELAYED RELEASE TAB PO SCH (08:25)
[2016-12-29] MEDS: QUEtiapine FUMARATE 25 MG TAB PO SCH ×3 (08:25→21:38)
[2016-12-29] MEDS: NYSTATIN 100,000 U/GM PWD 15 GM BTL TOPICAL SCH ×3 (08:25→16:19)
--- NOTE | 2016-12-29 18:26 | HHI.PR ---
Subjective Remarks Follow-up for intracranial hemorrhage, basilar tip aneurysm. Patient seen and examined today, resting in bed. Pt reported he was in "[place], [place]." He was stated the year as 1996. He said he was 35 years old and noted he was born in 1964. Identified his as Celia Nunez. 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 Denied fever, cough, shortness of breath, NVD, bloody urine or stool. Per RN () no acute events overnight or since start of shift. No other issues noted or reported. Objective Vitals Vital Signs Date Time Temp Pulse Resp B/P Pulse Ox O2 Delivery O2 Flow Rate FiO2 12/29/16 16:18 97.2 75 18 112/69 98 12/29/16 11:49 97.4 77 18 116/76 95 12/29/16 08:12 98.1 79 20 120/77 97 12/29/16 04:00 97.5 85 18 124/78 97 12/29/16 01:00 97.3 85 20 115/62 98 12/28/16 20:00 96.7 78 20 122/74 95 I/O 12/28/16 12/28/16 12/28/16 12/29/16 12/29/16 12/29/16 06:59 14:59 22:59 06:59 14:59 22:59 Intake Total 720 ml Balance 720 ml Intake Oral 720 ml # Voids 4 5 6 3 # Bowel Movements 1 1 0 Result Diagram: 12/26/16 1306 12/26/16 1306 Objective Remarks GENERAL: Pt encountered sitting at the nurse's station, awake and alert. SKIN: Warm and dry. HEAD: Normocephalic. EYES: No scleral icterus. No injection or drainage. NECK: Supple, trachea midline. No lymphadenopathy. Site of recent T-Tube healing. CARDIOVASCULAR: Regular rate and rhythm without murmurs, gallops, or rubs. RESPIRATORY: Breath sounds equal bilaterally. No accessory muscle use. GASTROINTESTINAL: Abdomen soft, non-tender, nondistended. Feeding tube is present and per RN is not used. MUSCULOSKELETAL: No cyanosis, or edema. PSYCHIATRIC: Pt alert and oriented to self. He did not evidence overt signs of anxiety or depression. As noted in subjective section, pt reported having gone swimming late last night. Pt is pleasant and cooperative. Procedures 10/05/16 right frontal twist drill for ventriculostomy placement 10/20/16 arterial line placement 10/23/16 bedside percutaneous tracheostomy under direct bronchoscopic visualization 10/24/16 PEG tube placement at bedside Medications and IVs Current Medications Medications (Trade) Dose Ordered Sig/Nava Route Start Time Stop Time Status Last Admin (Tylenol) 650 mg Q6H PRN PO 10/05/16 02:45 11/24/16 20:17 (Tears Naturale Opth Soln) 1 drop TID EACH EYE 10/05/16 09:00 12/29/16 16:19 (Zofran Inj) 4 mg Q6H PRN IV 10/05/16 02:45 11/27/16 23:26 Miscellaneous Information 1 Q361D XX 10/05/16 02:45 10/05/16 02:45 (Chlorhexidine 2% Cloth) Taper DAILY@04 TOP 10/05/16 04:00 10/01/17 03:59 12/05/16 04:00 (Chlorhexidine 2% Cloth) 3 pack UNSCH PRN TOP 10/05/16 02:45 (Pravachol) 40 mg DAILY PO 10/05/16 09:00 12/29/16 08:24 (Lovenox Inj) 40 mg Q24H SQ 10/23/16 21:00 12/28/16 21:28 (Trandate) 100 mg Q8H PO 11/03/16 20:00 12/29/16 11:27 (Norvasc) 5 mg DAILY PO 11/04/16 09:00 12/29/16 08:25 (Mycostatin Powder) 1 applic TID TOPICAL 11/06/16 09:00 12/29/16 16:19 (Lactinex) 1 tab Q12HR PO 11/06/16 21:00 12/29/16 08:24 (SEROquel) 25 mg BID@09,12 PO 11/07/16 09:00 12/29/16 11:27 (Colace Liq) 100 mg Q12H PRN G-TUBE 11/06/16 17:00 12/11/16 21:59 (Imodium) 2 mg UNSCH PRN PO 11/09/16 09:45 11/29/16 12:57 (Lomotil Tab) 1 tab Q6H PRN PO 11/09/16 09:45 (SEROquel) 25 mg HS PO 11/20/16 21:00 12/28/16 21:28 (Lactulose Liq) 30 ml QID PRN PO 12/09/16 13:45 (K-Lyte Cl Eff) 50 meq Q12HR NG 12/13/16 09:00 12/29/16 08:24 (Protonix) 40 mg DAILY PO 12/16/16 09:00 12/29/16 08:25 (Florinef) 0.2 mg DAILY PO 12/20/16 09:00 12/29/16 08:25 (Benadryl) 50 mg Q6H PRN PO 12/20/16 17:45 12/23/16 20:28 Urinary Catheter: No A/P Problem List: (1) 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 ICD Code: I60.8 Status: Acute (2) Hypertension ICD Code: I10 Status: Chronic (3) Major neurocognitive disorder due to vascular disease, without behavioral disturbance, severe ICD Code: F01.50 Status: Acute (4) Septic shock ICD Code: A41.9 Status: Resolved (5) Hydrocephalus ICD Code: G91.9 Status: Acute (6) Intracranial hemorrhage ICD Code: I62.9 Status: Acute (7) Major neurocognitive disorder as late effect of traumatic brain injury with behavioral disturbance ICD Code: S06.9X9S Status: Acute (8) Encephalopathy ICD Code: G93.40 Status: Acute (9) Sepsis ICD Code: A41.9 Status: Resolved (10) Pneumonia ICD Code: J18.9 Status: Acute (11) Protein-calorie malnutrition, mild ICD Code: E44.1 Status: Acute (12) Acute respiratory failure with hypoxia and hypercarbia ICD Code: J96.01 Status: Acute Assessment and Plan 51-year-old male status post aneurysm related acute intracranial hemorrhage. 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 -Cont PT/OT -Hematology inquiring about CSF samples. While ordered, samples not available at this time. Order cancelled at direction of Dr. James. Acute hypoxic hypercarbic respiratory failure -Tracheostomy 10/23/16, removed, old trach site open to air -Follow respiratory status Cerebral salt wasting: -Follow sodium levels, labs stable -Continue Florinef -By mouth sodium tablets C. difficile colitis, resolved -Completed Flagyl on 10/23 -Follow for diarrhea -Cont Lactinex Hyperglycemia, resolve -Follow blood sugars Hypokalemia, 3.4 12/12. 3.2 12/13, 3.3 12/14, 5.2 12/15, 3.3 12/16, 3.2 12/17, 3.2 -Increased supplement to 50meq eff BID, labs in am -Follow and replace as needed -Elevation of 12/15 related to hemolysis of sample. Results of 12/16 indicated pt is again hypokalemic. Resume potassium administration. DVT prophylaxis: SCDs, YOUSIF hose, Lovenox. GI prophylaxis: Protonix. Case discussed with pt, RN (Alexis) and Dr. Cortes. Discharge Planning Discharge planning ongoing. Issues seem to be related to finding an accepting facility as well as payor source. It was noted pt may be discharged to home, CM continues to address this possibility. Pt's is pursuing guardianship of pt, based on documents she is requesting to be completed. Problem Qualifiers (1) Hypertension: Qualified Code: I10 - Essential hypertension Manolo Alvarez Jr. Dec 29, 2016 18:26
[2016-12-29] MEDS: ENOXAPARIN SODIUM 40 MG/0.4 ML SYRINGE SQ SCH (21:38)
[2016-12-30] MEDS: CHLORHEXIDINE GLUCONATE 2 % 1 PACK (2 CLOTHS) TOP SCH (03:31)
[2016-12-30] MEDS: LABETALOL HCL 100 MG TAB PO SCH ×3 (03:49→21:21)
[2016-12-30 03:53] VITALS: BP 126/75; PULSE 81; RESP 18; TEMP 98.2; O2SAT 92
[2016-12-30 08:00] VITALS: BP 132/78; PULSE 78; RESP 16; O2SAT 96
[2016-12-30] MEDS: NYSTATIN 100,000 U/GM PWD 15 GM BTL TOPICAL SCH ×3 (09:00→17:26)
[2016-12-30] MEDS: PANTOPRAZOLE SOD 40 MG DELAYED RELEASE TAB PO SCH (09:06)
[2016-12-30] MEDS: POTASSIUM CHLORIDE 25 MEQ EFFERVESCENT TAB NG SCH ×2 (09:06→21:19)
[2016-12-30] MEDS: FLUDROCORTISONE ACETATE 0.1 MG TAB PO SCH (09:06)
[2016-12-30] MEDS: QUEtiapine FUMARATE 25 MG TAB PO SCH ×3 (09:06→21:21)
[2016-12-30] MEDS: PRAVASTATIN SOD 40 MG TAB PO SCH (09:06)
[2016-12-30] MEDS: LACTOBACILLUS ACIDOPHILUS TAB PO SCH ×2 (09:06→21:21)
[2016-12-30] MEDS: amLODIPine BESYLATE 5 MG TAB PO SCH (09:06)
[2016-12-30] MEDS: ARTIFICIAL TEARS OPTH SOLN 15 ML BTL EACH EYE SCH ×3 (09:09→17:26)
[2016-12-30 10:01] LABS: BICARBONATE 26.6 MEQ/L (21.0-32.0); CALCIUM 9.5 MG/DL (8.5-10.1); CREATININE 0.99 MG/DL (0.60-1.30)
[2016-12-30 12:00] VITALS: BP 125/84; PULSE 84; RESP 17; O2SAT 95
--- NOTE | 2016-12-30 16:56 | HHI.PR ---
Subjective Remarks Follow-up for intracranial hemorrhage, basilar tip aneurysm. Patient seen and examined today, resting in bed. Pt reported he was in "[place], [place]" He was stated the year as 2015. Pt reported being tired this morning as he was "out last night doing something. " Denies any new complaints. Denied fever, cough, shortness of breath, NVD, bloody urine or stool. Per RN (Gabriella) no acute events overnight or since start of shift. No other issues noted or reported. Objective Vitals Vital Signs Date Time Temp Pulse Resp B/P Pulse Ox O2 Delivery O2 Flow Rate FiO2 12/30/16 12:00 84 17 125/84 95 12/30/16 08:00 78 16 132/78 96 12/30/16 03:53 98.2 81 18 126/75 92 12/29/16 23:51 98.6 95 18 123/73 93 12/29/16 20:11 98.2 82 20 118/73 95 I/O 12/29/16 12/29/16 12/29/16 12/30/16 12/30/16 12/30/16 07:00 15:00 23:00 07:00 15:00 23:00 Output Total 2 ml Balance -2 ml Output Urine Total 2 ml # Voids 6 3 2 # Bowel Movements 1 1 0 Result Diagram: 12/26/16 1306 12/30/16 0825 Objective Remarks GENERAL: Pt encountered laying abed, awake and alert. SKIN: Warm and dry. HEAD: Normocephalic. EYES: No scleral icterus. No injection or drainage. NECK: Supple, trachea midline. No lymphadenopathy. Site of recent T-Tube healing. CARDIOVASCULAR: Regular rate and rhythm without murmurs, gallops, or rubs. RESPIRATORY: Breath sounds equal bilaterally. No accessory muscle use. GASTROINTESTINAL: Abdomen soft, non-tender, nondistended. Feeding tube is present and per RN is not used. MUSCULOSKELETAL: No cyanosis, or edema. PSYCHIATRIC: Pt alert and oriented to self. He did not evidence overt signs of anxiety or depression. Pt is pleasant and cooperative. Procedures 10/05/16 right frontal twist drill for ventriculostomy placement 10/20/16 arterial line placement 10/23/16 bedside percutaneous tracheostomy under direct bronchoscopic visualization 10/24/16 PEG tube placement at bedside Medications and IVs Current Medications Medications (Trade) Dose Ordered Sig/Nava Route Start Time Stop Time Status Last Admin (Tylenol) 650 mg Q6H PRN PO 10/05/16 02:45 11/24/16 20:17 (Tears Naturale Opth Soln) 1 drop TID EACH EYE 10/05/16 09:00 12/30/16 13:27 (Zofran Inj) 4 mg Q6H PRN IV 10/05/16 02:45 11/27/16 23:26 Miscellaneous Information 1 Q361D XX 10/05/16 02:45 10/05/16 02:45 (Chlorhexidine 2% Cloth) Taper DAILY@04 TOP 10/05/16 04:00 10/01/17 03:59 12/05/16 04:00 (Chlorhexidine 2% Cloth) 3 pack UNSCH PRN TOP 10/05/16 02:45 (Pravachol) 40 mg DAILY PO 10/05/16 09:00 12/30/16 09:06 (Lovenox Inj) 40 mg Q24H SQ 10/23/16 21:00 12/29/16 21:38 (Trandate) 100 mg Q8H PO 11/03/16 20:00 12/30/16 13:25 (Norvasc) 5 mg DAILY PO 11/04/16 09:00 12/30/16 09:06 (Mycostatin Powder) 1 applic TID TOPICAL 11/06/16 09:00 12/29/16 16:19 (Lactinex) 1 tab Q12HR PO 11/06/16 21:00 12/30/16 09:06 (SEROquel) 25 mg BID@09,12 PO 11/07/16 09:00 12/30/16 13:25 (Colace Liq) 100 mg Q12H PRN G-TUBE 11/06/16 17:00 12/11/16 21:59 (Imodium) 2 mg UNSCH PRN PO 11/09/16 09:45 11/29/16 12:57 (Lomotil Tab) 1 tab Q6H PRN PO 11/09/16 09:45 (SEROquel) 25 mg HS PO 11/20/16 21:00 12/29/16 21:38 (Lactulose Liq) 30 ml QID PRN PO 12/09/16 13:45 (K-Lyte Cl Eff) 50 meq Q12HR NG 12/13/16 09:00 12/30/16 09:06 (Protonix) 40 mg DAILY PO 12/16/16 09:00 12/30/16 09:06 (Florinef) 0.2 mg DAILY PO 12/20/16 09:00 12/30/16 09:06 (Benadryl) 50 mg Q6H PRN PO 12/20/16 17:45 12/23/16 20:28 Urinary Catheter: No A/P Problem List: (1) 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 ICD Code: I60.8 Status: Acute (2) Hypertension ICD Code: I10 Status: Chronic (3) Major neurocognitive disorder due to vascular disease, without behavioral disturbance, severe ICD Code: F01.50 Status: Acute (4) Septic shock ICD Code: A41.9 Status: Resolved (5) Hydrocephalus ICD Code: G91.9 Status: Acute (6) Intracranial hemorrhage ICD Code: I62.9 Status: Acute (7) Major neurocognitive disorder as late effect of traumatic brain injury with behavioral disturbance ICD Code: S06.9X9S Status: Acute (8) Encephalopathy ICD Code: G93.40 Status: Acute (9) Sepsis ICD Code: A41.9 Status: Resolved (10) Pneumonia ICD Code: J18.9 Status: Acute (11) Protein-calorie malnutrition, mild ICD Code: E44.1 Status: Acute (12) Acute respiratory failure with hypoxia and hypercarbia ICD Code: J96.01 Status: Acute Assessment and Plan 51-year-old male status post aneurysm related acute intracranial hemorrhage. 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 -Cont PT/OT -Hematology inquiring about CSF samples. While ordered, samples not available at this time. Order cancelled at direction of Dr. James. -Noted that speech and language pathologist has signed off on 12/27/16 as pt has hit a cognitive plateau. Acute hypoxic hypercarbic respiratory failure -Tracheostomy 10/23/16, removed, old trach site open to air -Follow respiratory status Cerebral salt wasting: -Follow sodium levels, labs stable -Continue Florinef -By mouth sodium tablets C. difficile colitis, resolved -Completed Flagyl on 10/23 -Follow for diarrhea -Cont Lactinex Hyperglycemia, resolve -Follow blood sugars Hypokalemia, 3.4 12/12. 3.2 12/13, 3.3 12/14, 5.2 12/15, 3.3 12/16, 3.2 12/17, 3.2 -Increased supplement to 50meq eff BID, labs in am -Follow and replace as needed -Elevation of 12/15 related to hemolysis of sample. Results of 12/16 indicated pt is again hypokalemic. Resume potassium administration. DVT prophylaxis: SCDs, YOUSIF hose, Lovenox. GI prophylaxis: Protonix. Case discussed with pt, RN (Gabriella) and Dr. Cortes. Discharge Planning Discharge planning ongoing. Issues seem to be related to finding an accepting facility as well as payor source. It was noted pt may be discharged to home, CM continues to address this possibility. Pt's is pursuing guardianship of pt, based on documents she is requesting to be completed. Problem Qualifiers (1) Hypertension: Qualified Code: I10 - Essential hypertension Manolo Alvarez Jr. Dec 30, 2016 16:56
[2016-12-30 20:00] VITALS: BP 123/78; PULSE 86; RESP 16; TEMP 97.9; O2SAT 98
[2016-12-30] MEDS: ENOXAPARIN SODIUM 40 MG/0.4 ML SYRINGE SQ SCH (21:19)
[2016-12-31 00:14] VITALS: BP 120/72; PULSE 89; RESP 16; TEMP 97.6; O2SAT 98
[2016-12-31] MEDS: CHLORHEXIDINE GLUCONATE 2 % 1 PACK (2 CLOTHS) TOP SCH (04:00)
[2016-12-31 04:27] VITALS: BP 131/76; PULSE 80; RESP 17; TEMP 97.1; O2SAT 97
[2016-12-31] MEDS: LABETALOL HCL 100 MG TAB PO SCH ×3 (05:10→21:04)
[2016-12-31 07:44] VITALS: BP 125/77; PULSE 84; RESP 20; TEMP 97.5; O2SAT 94
[2016-12-31] MEDS: LACTOBACILLUS ACIDOPHILUS TAB PO SCH ×2 (08:55→21:04)
[2016-12-31] MEDS: amLODIPine BESYLATE 5 MG TAB PO SCH (08:56)
[2016-12-31] MEDS: QUEtiapine FUMARATE 25 MG TAB PO SCH ×3 (08:56→21:04)
[2016-12-31] MEDS: PANTOPRAZOLE SOD 40 MG DELAYED RELEASE TAB PO SCH (08:56)
[2016-12-31] MEDS: PRAVASTATIN SOD 40 MG TAB PO SCH (08:56)
[2016-12-31] MEDS: FLUDROCORTISONE ACETATE 0.1 MG TAB PO SCH (08:56)
[2016-12-31] MEDS: POTASSIUM CHLORIDE 25 MEQ EFFERVESCENT TAB NG SCH ×2 (08:57→21:04)
[2016-12-31] MEDS: ARTIFICIAL TEARS OPTH SOLN 15 ML BTL EACH EYE SCH ×2 (09:00→18:00)
[2016-12-31 12:20] VITALS: BP 134/80; PULSE 78; RESP 18; TEMP 97.3; O2SAT 95
[2016-12-31 16:07] VITALS: BP 117/80; PULSE 86; RESP 20; TEMP 96.9; O2SAT 97
--- NOTE | 2016-12-31 17:34 | HHI.PR ---
Subjective Remarks Follow-up for intracranial hemorrhage, basilar tip aneurysm. Patient seen and examined today, resting in bed. Pt reported he was in "[place], [place]" He was stated the year as 1986. Pt reported being tired this morning. Denies any new complaints. Denied fever, cough, shortness of breath, NVD, bloody urine or stool. Per RN (Zamzam) no acute events overnight or since start of shift. No other issues noted or reported. Objective Vitals Vital Signs Date Time Temp Pulse Resp B/P Pulse Ox O2 Delivery O2 Flow Rate FiO2 12/31/16 16:07 96.9 86 20 117/80 97 12/31/16 12:20 97.3 78 18 134/80 95 12/31/16 07:44 97.5 84 20 125/77 94 12/31/16 04:27 97.1 80 17 131/76 97 12/31/16 00:14 97.6 89 16 120/72 98 12/30/16 20:00 97.9 86 16 123/78 98 I/O 12/30/16 12/30/16 12/30/16 12/31/16 12/31/16 12/31/16 07:00 15:00 23:00 07:00 15:00 23:00 Intake Total 600 ml 480 ml 480 ml Balance 600 ml 480 ml 480 ml Intake Oral 600 ml 480 ml 480 ml # Voids 2 4 4 2 # Bowel Movements 0 1 1 Result Diagram: 12/30/16 0825 Objective Remarks GENERAL: Pt encountered sitting in recliner chair at observation nurse's station , awake and alert. SKIN: Warm and dry. HEAD: Normocephalic. EYES: No scleral icterus. No injection or drainage. NECK: Supple, trachea midline. No lymphadenopathy. Site of recent T-Tube healing. CARDIOVASCULAR: Regular rate and rhythm without murmurs, gallops, or rubs. RESPIRATORY: Breath sounds equal bilaterally. No accessory muscle use. GASTROINTESTINAL: Abdomen soft, non-tender, nondistended. Feeding tube is present and per RN is not used. MUSCULOSKELETAL: No cyanosis, or edema. PSYCHIATRIC: Pt alert and oriented to self. He did not evidence overt signs of anxiety or depression. Pt is pleasant and cooperative. Procedures 10/05/16 right frontal twist drill for ventriculostomy placement 10/20/16 arterial line placement 10/23/16 bedside percutaneous tracheostomy under direct bronchoscopic visualization 10/24/16 PEG tube placement at bedside Medications and IVs Current Medications Medications (Trade) Dose Ordered Sig/Nava Route Start Time Stop Time Status Last Admin (Tylenol) 650 mg Q6H PRN PO 10/05/16 02:45 11/24/16 20:17 (Tears Naturale Opth Soln) 1 drop TID EACH EYE 10/05/16 09:00 12/31/16 09:00 (Zofran Inj) 4 mg Q6H PRN IV 10/05/16 02:45 11/27/16 23:26 Miscellaneous Information 1 Q361D XX 10/05/16 02:45 10/05/16 02:45 (Chlorhexidine 2% Cloth) Taper DAILY@04 TOP 10/05/16 04:00 10/01/17 03:59 12/31/16 04:00 (Chlorhexidine 2% Cloth) 3 pack UNSCH PRN TOP 10/05/16 02:45 (Pravachol) 40 mg DAILY PO 10/05/16 09:00 12/31/16 08:56 (Lovenox Inj) 40 mg Q24H SQ 10/23/16 21:00 12/30/16 21:19 (Trandate) 100 mg Q8H PO 11/03/16 20:00 12/31/16 12:42 (Norvasc) 5 mg DAILY PO 11/04/16 09:00 12/31/16 08:56 (Mycostatin Powder) 1 applic TID TOPICAL 11/06/16 09:00 12/29/16 16:19 (Lactinex) 1 tab Q12HR PO 11/06/16 21:00 12/31/16 08:55 (SEROquel) 25 mg BID@09,12 PO 11/07/16 09:00 12/31/16 12:42 (Colace Liq) 100 mg Q12H PRN G-TUBE 11/06/16 17:00 12/11/16 21:59 (Imodium) 2 mg UNSCH PRN PO 11/09/16 09:45 11/29/16 12:57 (Lomotil Tab) 1 tab Q6H PRN PO 11/09/16 09:45 (SEROquel) 25 mg HS PO 11/20/16 21:00 12/30/16 21:21 (Lactulose Liq) 30 ml QID PRN PO 12/09/16 13:45 (K-Lyte Cl Eff) 50 meq Q12HR NG 12/13/16 09:00 12/31/16 08:57 (Protonix) 40 mg DAILY PO 12/16/16 09:00 12/31/16 08:56 (Florinef) 0.2 mg DAILY PO 12/20/16 09:00 12/31/16 08:56 (Benadryl) 50 mg Q6H PRN PO 12/20/16 17:45 12/23/16 20:28 Urinary Catheter: No A/P Problem List: (1) 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 ICD Code: I60.8 Status: Acute (2) Hypertension ICD Code: I10 Status: Chronic (3) Major neurocognitive disorder due to vascular disease, without behavioral disturbance, severe ICD Code: F01.50 Status: Acute (4) Septic shock ICD Code: A41.9 Status: Resolved (5) Hydrocephalus ICD Code: G91.9 Status: Acute (6) Intracranial hemorrhage ICD Code: I62.9 Status: Acute (7) Major neurocognitive disorder as late effect of traumatic brain injury with behavioral disturbance ICD Code: S06.9X9S Status: Acute (8) Encephalopathy ICD Code: G93.40 Status: Acute (9) Sepsis ICD Code: A41.9 Status: Resolved (10) Pneumonia ICD Code: J18.9 Status: Acute (11) Protein-calorie malnutrition, mild ICD Code: E44.1 Status: Acute (12) Acute respiratory failure with hypoxia and hypercarbia ICD Code: J96.01 Status: Acute Assessment and Plan 51-year-old male status post aneurysm related acute intracranial hemorrhage. 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 -Cont PT/OT -Hematology inquiring about CSF samples. While ordered, samples not available at this time. Order cancelled at direction of Dr. James. -Noted that speech and language pathologist has signed off on 12/27/16 as pt has hit a cognitive plateau. -Discussed with Dr. Cortes removal of PEG tube as pt has not been using it for some time. He requested the team that placed it be contacted and asked to remove it.pt is eating without difficulty. Acute hypoxic hypercarbic respiratory failure -Tracheostomy 10/23/16, removed, old trach site open to air -Follow respiratory status Cerebral salt wasting: -Follow sodium levels, labs stable -Continue Florinef -By mouth sodium tablets C. difficile colitis, resolved -Completed Flagyl on 10/23 -Follow for diarrhea -Cont Lactinex Hyperglycemia, resolve -Follow blood sugars Hypokalemia, 3.4 12/12. 3.2 12/13, 3.3 12/14, 5.2 12/15, 3.3 12/16, 3.2 12/17, 3.2 -Increased supplement to 50meq eff BID, labs in am -Follow and replace as needed -Elevation of 12/15 related to hemolysis of sample. Results of 12/16 indicated pt is again hypokalemic. Resume potassium administration. DVT prophylaxis: SCDs, YOUSIF hose, Lovenox. GI prophylaxis: Protonix. Case discussed with pt, RN (Zamzam) and Dr. Cortes. Discharge Planning Discharge planning ongoing. Issues seem to be related to finding an accepting facility as well as payor source. It was noted pt may be discharged to home, CM continues to address this possibility. Pt's is pursuing guardianship of pt, based on documents she is requesting to be completed. Problem Qualifiers (1) Hypertension: Qualified Code: I10 - Essential hypertension Manolo Alvarez Jr. Dec 31, 2016 17:34
[2016-12-31] MEDS: NYSTATIN 100,000 U/GM PWD 15 GM BTL TOPICAL SCH (18:00)
[2016-12-31 20:06] VITALS: BP 122/77; PULSE 78; RESP 17; TEMP 97.9; O2SAT 96
[2016-12-31] MEDS: ENOXAPARIN SODIUM 40 MG/0.4 ML SYRINGE SQ SCH (21:04)
[2017-01-01] MEDS: ACETAMINOPHEN 325 MG TAB PO PRN (00:08)
[2017-01-01 00:10] VITALS: BP 155/82; PULSE 82; RESP 17; TEMP 98.2; O2SAT 98
[2017-01-01] MEDS: CHLORHEXIDINE GLUCONATE 2 % 1 PACK (2 CLOTHS) TOP SCH (03:31)
[2017-01-01] MEDS: LABETALOL HCL 100 MG TAB PO SCH ×3 (03:31→20:29)
[2017-01-01 04:24] VITALS: BP 137/78; PULSE 82; RESP 17; TEMP 98; O2SAT 98
[2017-01-01 08:08] VITALS: BP 118/77; PULSE 88; RESP 20; TEMP 96.8; O2SAT 97
[2017-01-01] MEDS: POTASSIUM CHLORIDE 25 MEQ EFFERVESCENT TAB NG SCH ×2 (08:24→20:30)
[2017-01-01] MEDS: PANTOPRAZOLE SOD 40 MG DELAYED RELEASE TAB PO SCH (08:24)
[2017-01-01] MEDS: ARTIFICIAL TEARS OPTH SOLN 15 ML BTL EACH EYE SCH ×3 (08:24→16:24)
[2017-01-01] MEDS: amLODIPine BESYLATE 5 MG TAB PO SCH (08:25)
[2017-01-01] MEDS: FLUDROCORTISONE ACETATE 0.1 MG TAB PO SCH (08:25)
[2017-01-01] MEDS: QUEtiapine FUMARATE 25 MG TAB PO SCH ×3 (08:25→20:29)
[2017-01-01] MEDS: LACTOBACILLUS ACIDOPHILUS TAB PO SCH ×2 (08:25→20:29)
[2017-01-01] MEDS: PRAVASTATIN SOD 40 MG TAB PO SCH (08:26)
[2017-01-01] MEDS: NYSTATIN 100,000 U/GM PWD 15 GM BTL TOPICAL SCH ×3 (08:26→16:24)
[2017-01-01 12:14] VITALS: BP 135/80; PULSE 82; RESP 20; TEMP 96.9; O2SAT 97
[2017-01-01 15:56] VITALS: BP 115/74; PULSE 78; RESP 20; TEMP 97; O2SAT 98
--- NOTE | 2017-01-01 16:28 | HHI.PR ---
Subjective Remarks Follow-up for intracranial hemorrhage, basilar tip aneurysm. Patient seen and examined today, resting in bed. [place] [facility] [place] [facility] He was able to identify the year and could report his age. Pt reported being tired this morning. Reported having middle back that was "mild." Denied fever, cough, shortness of breath, NVD, bloody urine or stool. Per RN (Soniya) no acute events overnight or since start of shift. No other issues noted or reported. Objective Vitals Vital Signs Date Time Temp Pulse Resp B/P Pulse Ox O2 Delivery O2 Flow Rate FiO2 01/01/17 15:56 97.0 78 20 115/74 98 01/01/17 12:14 96.9 82 20 135/80 97 01/01/17 08:08 96.8 88 20 118/77 97 01/01/17 04:24 98.0 82 17 137/78 98 01/01/17 01:08 20 01/01/17 00:10 98.2 82 17 155/82 98 12/31/16 20:06 97.9 78 17 122/77 96 I/O 12/31/16 12/31/16 12/31/16 01/01/17 01/01/17 01/01/17 06:59 14:59 22:59 06:59 14:59 22:59 Intake Total 480 ml 480 ml 240 ml 240 ml 480 ml Balance 480 ml 480 ml 240 ml 240 ml 480 ml Intake Oral 480 ml 480 ml 240 ml 240 ml 480 ml # Voids 4 2 2 3 2 # Bowel Movements 1 1 1 Result Diagram: 12/30/16 0825 Objective Remarks GENERAL: Pt encountered sitting in recliner chair at observation nurse's station , awake and alert. eating lunch. SKIN: Warm and dry. HEAD: Normocephalic. EYES: No scleral icterus. No injection or drainage. NECK: Supple, trachea midline. No lymphadenopathy. Site of recent T-Tube healing. CARDIOVASCULAR: Regular rate and rhythm without murmurs, gallops, or rubs. RESPIRATORY: Breath sounds equal bilaterally. No accessory muscle use. GASTROINTESTINAL: Abdomen soft, non-tender, nondistended. Feeding tube is present and per RN is not used. MUSCULOSKELETAL: No cyanosis, or edema. PSYCHIATRIC: Pt alert and oriented to self. He did not evidence overt signs of anxiety or depression. Pt is pleasant and cooperative. Pt could not recall what he ate for lunch which he had just finished and the tray was immediately in front of him. Procedures 10/05/16 right frontal twist drill for ventriculostomy placement 10/20/16 arterial line placement 10/23/16 bedside percutaneous tracheostomy under direct bronchoscopic visualization 10/24/16 PEG tube placement at bedside Medications and IVs Current Medications Medications (Trade) Dose Ordered Sig/Nava Route Start Time Stop Time Status Last Admin (Tylenol) 650 mg Q6H PRN PO 10/05/16 02:45 01/01/17 00:08 (Tears Naturale Opth Soln) 1 drop TID EACH EYE 10/05/16 09:00 12/31/16 18:00 (Zofran Inj) 4 mg Q6H PRN IV 10/05/16 02:45 11/27/16 23:26 Miscellaneous Information 1 Q361D XX 10/05/16 02:45 10/05/16 02:45 (Chlorhexidine 2% Cloth) Taper DAILY@04 TOP 10/05/16 04:00 10/01/17 03:59 12/31/16 04:00 (Chlorhexidine 2% Cloth) 3 pack UNSCH PRN TOP 10/05/16 02:45 (Pravachol) 40 mg DAILY PO 10/05/16 09:00 01/01/17 08:26 (Lovenox Inj) 40 mg Q24H SQ 10/23/16 21:00 12/31/16 21:04 (Trandate) 100 mg Q8H PO 11/03/16 20:00 01/01/17 11:00 (Norvasc) 5 mg DAILY PO 11/04/16 09:00 01/01/17 08:25 (Mycostatin Powder) 1 applic TID TOPICAL 11/06/16 09:00 12/29/16 16:19 (Lactinex) 1 tab Q12HR PO 11/06/16 21:00 01/01/17 08:25 (SEROquel) 25 mg BID@09,12 PO 11/07/16 09:00 01/01/17 11:00 (Colace Liq) 100 mg Q12H PRN G-TUBE 11/06/16 17:00 12/11/16 21:59 (Imodium) 2 mg UNSCH PRN PO 11/09/16 09:45 11/29/16 12:57 (Lomotil Tab) 1 tab Q6H PRN PO 11/09/16 09:45 (SEROquel) 25 mg HS PO 11/20/16 21:00 12/31/16 21:04 (Lactulose Liq) 30 ml QID PRN PO 12/09/16 13:45 (K-Lyte Cl Eff) 50 meq Q12HR NG 12/13/16 09:00 01/01/17 08:24 (Protonix) 40 mg DAILY PO 12/16/16 09:00 01/01/17 08:24 (Florinef) 0.2 mg DAILY PO 12/20/16 09:00 01/01/17 08:25 (Benadryl) 50 mg Q6H PRN PO 12/20/16 17:45 12/23/16 20:28 Urinary Catheter: No A/P Problem List: (1) 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 ICD Code: I60.8 Status: Acute (2) Hypertension ICD Code: I10 Status: Chronic (3) Major neurocognitive disorder due to vascular disease, without behavioral disturbance, severe ICD Code: F01.50 Status: Acute (4) Septic shock ICD Code: A41.9 Status: Resolved (5) Hydrocephalus ICD Code: G91.9 Status: Acute (6) Intracranial hemorrhage ICD Code: I62.9 Status: Acute (7) Major neurocognitive disorder as late effect of traumatic brain injury with behavioral disturbance ICD Code: S06.9X9S Status: Acute (8) Encephalopathy ICD Code: G93.40 Status: Acute (9) Sepsis ICD Code: A41.9 Status: Resolved (10) Pneumonia ICD Code: J18.9 Status: Acute (11) Protein-calorie malnutrition, mild ICD Code: E44.1 Status: Acute (12) Acute respiratory failure with hypoxia and hypercarbia ICD Code: J96.01 Status: Acute Assessment and Plan 51-year-old male status post aneurysm related acute intracranial hemorrhage. 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 -Cont PT/OT -Hematology inquiring about CSF samples. While ordered, samples not available at this time. Order cancelled at direction of Dr. James. -Noted that speech and language pathologist has signed off on 12/27/16 as pt has hit a cognitive plateau. -Discussed with Dr. Cortes removal of PEG tube as pt has not been using it for some time. He requested the team that placed it be contacted and asked to remove it.pt is eating without difficulty. Will request RN to contact Dr. Prater. Acute hypoxic hypercarbic respiratory failure -Tracheostomy 10/23/16, removed, old trach site open to air -Follow respiratory status Cerebral salt wasting: -Follow sodium levels, labs stable -Continue Florinef -By mouth sodium tablets C. difficile colitis, resolved -Completed Flagyl on 10/23 -Follow for diarrhea -Cont Lactinex Hyperglycemia, resolve -Follow blood sugars Hypokalemia, 3.4 12/12. 3.2 12/13, 3.3 12/14, 5.2 12/15, 3.3 12/16, 3.2 12/17, 3.2 -Increased supplement to 50meq eff BID, labs in am -Follow and replace as needed -Elevation of 12/15 related to hemolysis of sample. Results of 12/16 indicated pt is again hypokalemic. Resume potassium administration. DVT prophylaxis: SCDs, YOUSIF hose, Lovenox. GI prophylaxis: Protonix. Case discussed with pt, RN (Soniya) and Dr. Cortes. Discharge Planning Discharge planning ongoing. Issues seem to be related to finding an accepting facility as well as payor source. It was noted pt may be discharged to home, CM continues to address this possibility. Pt's is pursuing guardianship of pt, based on documents she is requesting to be completed. Problem Qualifiers (1) Hypertension: Qualified Code: I10 - Essential hypertension Manolo Alvarez Jr. Jan 01, 2017 16:28
[2017-01-01] MEDS: ENOXAPARIN SODIUM 40 MG/0.4 ML SYRINGE SQ SCH (20:30)
[2017-01-01 20:44] VITALS: BP 141/79; PULSE 79; RESP 20; TEMP 96.9; O2SAT 93
[2017-01-02] MEDS: CHLORHEXIDINE GLUCONATE 2 % 1 PACK (2 CLOTHS) TOP SCH (04:00)
[2017-01-02] MEDS: LABETALOL HCL 100 MG TAB PO SCH ×3 (04:38→20:52)
[2017-01-02 08:09] VITALS: BP 125/72; PULSE 77; RESP 20; TEMP 97.2; O2SAT 93
--- NOTE | 2017-01-02 08:17 | HHI.PR ---
Subjective Remarks Follow-up for intracranial hemorrhage, basilar tip aneurysm. Patient seen and examined today sleeping in bed. Awakens to voice, denies any new complaints. No acute events overnight. Vitals stable. Denies pain. Positive BM. Ambulating well. Objective Vitals Vital Signs Date Time Temp Pulse Resp B/P Pulse Ox O2 Delivery O2 Flow Rate FiO2 01/02/17 08:09 97.2 77 20 125/72 93 01/01/17 20:44 96.9 79 20 141/79 93 01/01/17 15:56 97.0 78 20 115/74 98 01/01/17 12:14 96.9 82 20 135/80 97 I/O 01/01/17 01/01/17 01/01/17 01/02/17 01/02/17 01/02/17 07:00 15:00 23:00 07:00 15:00 23:00 Intake Total 240 ml 480 ml 400 ml Balance 240 ml 480 ml 400 ml Intake Oral 240 ml 480 ml 400 ml # Voids 3 2 1 # Bowel Movements 1 0 Result Diagram: 12/30/16 0825 Imaging Last Impressions Head CT 12/09/16 0000 Signed Impressions: Service Date/Time: Friday, December 09, 2016 17:36 - CONCLUSION: 1. Right ventriculostomy tube remains in place with decrease in ventricular size since November 24. There is some encephalomalacia around the shunt and a probable small infarct in the left basal ganglia. No new hemorrhage or shift. Tip Harris MD Abdomen X-Ray 11/28/16 0000 Signed Impressions: Service Date/Time: Monday, November 28, 2016 16:00 - CONCLUSION: 1. No evidence of bowel obstruction, ileus or perforation. 2. Degenerative changes and scoliosis of the thoracolumbar spine. 3. Degenerative changes involving the hip joints bilaterally. Juan Worley MD Chest X-Ray 11/01/16 0600 Signed Impressions: Service Date/Time: Tuesday, November 01, 2016 04:37 - CONCLUSION: 1. No acute cardiopulmonary disease. Trevin De León MD Transcranial Doppler Study Complete 10/26/16 0700 Signed Impressions: Service Date/Time: Wednesday, October 26, 2016 08:20 - CONCLUSION: Minimal interval improvement with no evidence for vasospasm. Christian Song MD FACR Neck CTA 10/19/16 0000 Signed Impressions: Service Date/Time: Wednesday, October 19, 2016 14:19 - CONCLUSION: Negative for dissection or significant stenosis. Christian Song MD FACR Head CTA 10/19/16 Signed Impressions: Service Date/Time: Wednesday, October 19, 2016 14:19 - CONCLUSION: 1. Interval development of significant vasospasm in the left MCA and SRI territories. 2. Mild vasospasm in the basilar artery.. Gume Mckeon MD Cerebral Arteriogram 10/19/16 Signed Impressions: Service Date/Time: Wednesday, October 19, 2016 16:06 - CONCLUSION: 1. Vasospasm in the left MCA and SRI territories 2. Spasmolytic infusion, left internal carotid artery as above.. 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 Gume Mckeon MD Pelvis X-Ray 10/05/16109 Signed Impressions: Service Date/Time: Wednesday, October 05, 2016 01:22 - CONCLUSION: Unremarkable examination of the pelvis. Ruben Acuña Jr., MD Chest CT 10/05/16109 Signed Impressions: Service Date/Time: Wednesday, October 05, 2016 01:46 - CONCLUSION: 1. No acute intrathoracic abnormality. 2. Bibasilar atelectasis. 3. Cardiomegaly. 4. Prior granulomatous disease. Ruben Acuña Jr., MD Cervical Spine CT 10/05/16109 Signed Impressions: Service Date/Time: Wednesday, October 05, 2016 01:40 - CONCLUSION: 1. No fracture or dislocation. 2. Multilevel degenerative changes. Ruben Acuña Jr., MD Abdomen/Pelvis CT 10/05/16109 Signed Impressions: Service Date/Time: Wednesday, October 05, 2016 01:46 - CONCLUSION: 1. No acute trauma. 2. Rounded area of decreased density involving the pancreatic head. I cannot completely exclude pancreatic head mass. At some point MRI of the pancreas is suggested to further evaluate. 3. Focal area of poor enhancement involving the left kidney. This may relate to an area of parenchymal scarring. I cannot completely exclude a mass. This can be further assessed with MRI as well. Ruben Acuña Jr., MD Objective Remarks GENERAL: Well-nourished, well-developed male patient, in no apparent distress sleeping in bed comfortably. Pleasantly confused, oriented x 1 to self. SKIN: No rash. Warm and dry. HEENT: Pupils equal round and reactive. Normocephalic. Extraocular motions intact. No scleral icterus. No injection or drainage. Oral mucosa moist. NECK: Trachea midline. Supple. CARDIOVASCULAR: RRR. No murmur appreciated. RESPIRATORY: Clear to auscultation. Breath sounds equal bilaterally. No wheezes , rales, or rhonchi. GASTROINTESTINAL: Abdomen soft, non-tender, nondistended. No guarding. Abdominal binder in place. PEG in place. MUSCULOSKELETAL: Extremities without clubbing, cyanosis, or edema. NEUROLOGICAL: Awake and alert. Moves all 4 extremities, equal no weakness noted. Procedures 10/05/16 right frontal twist drill for ventriculostomy placement 10/20/16 arterial line placement 10/23/16 bedside percutaneous tracheostomy under direct bronchoscopic visualization 10/24/16 PEG tube placement at bedside Urinary Catheter: No Vascular Central Line Catheter: No A/P Problem List: (1) 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 ICD Code: I60.8 Status: Acute (2) Hypertension ICD Code: I10 Status: Chronic (3) Major neurocognitive disorder due to vascular disease, without behavioral disturbance, severe ICD Code: F01.50 Status: Acute (4) Septic shock ICD Code: A41.9 Status: Resolved (5) Hydrocephalus ICD Code: G91.9 Status: Acute (6) Intracranial hemorrhage ICD Code: I62.9 Status: Acute (7) Major neurocognitive disorder as late effect of traumatic brain injury with behavioral disturbance ICD Code: S06.9X9S Status: Acute (8) Encephalopathy ICD Code: G93.40 Status: Acute (9) Sepsis ICD Code: A41.9 Status: Resolved (10) Pneumonia ICD Code: J18.9 Status: Acute (11) Protein-calorie malnutrition, mild ICD Code: E44.1 Status: Acute (12) Acute respiratory failure with hypoxia and hypercarbia ICD Code: J96.01 Status: Acute Assessment and Plan Mr. Nunez is a 51 year old male who was brought to the hospital as a trauma alert due to head injury after he fell in the bathroom and hit his head. Patient was unresponsive for approximately 15 minutes by the time ambulance services arrived. His mentation waxed and waned with GCS ranging from [address] head indicated subarachnoid hemorrhage, acute. 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 -Cont PT/OT - Awaiting surgery for PEG removal recommendations. Acute hypoxic hypercarbic respiratory failure -Tracheostomy 10/23/16, removed, old trach site open to air -Follow respiratory status Cerebral salt wasting: -Follow sodium levels, labs stable -Continue Florinef -By mouth sodium tablets C. difficile colitis, resolved -Completed Flagyl on 10/23 -Follow for diarrhea -Cont Lactinex Hypokalemia, resolved. - Continue supplementation. -Follow and replace as needed DVT prophylaxis: SCDs, YOUSIF hose, Lovenox. GI prophylaxis: Protonix. Discharge Planning Last CM note: 12/29/16 2:40pm: According to [facility] pt's account remains the same. CM was shone paperwork that pt's spouse is applying for guardianship. Problem Qualifiers (1) Hypertension: Qualified Code: I10 - Essential hypertension Dariela Del Cid Jan 02, 2017 08:17
[2017-01-02] MEDS: NYSTATIN 100,000 U/GM PWD 15 GM BTL TOPICAL SCH ×3 (09:00→18:00)
[2017-01-02] MEDS: ARTIFICIAL TEARS OPTH SOLN 15 ML BTL EACH EYE SCH ×3 (09:00→18:00)
[2017-01-02] MEDS: FLUDROCORTISONE ACETATE 0.1 MG TAB PO SCH (09:55)
[2017-01-02] MEDS: QUEtiapine FUMARATE 25 MG TAB PO SCH ×3 (09:55→20:52)
[2017-01-02] MEDS: LACTOBACILLUS ACIDOPHILUS TAB PO SCH ×2 (09:55→20:51)
[2017-01-02] MEDS: PANTOPRAZOLE SOD 40 MG DELAYED RELEASE TAB PO SCH (09:55)
[2017-01-02] MEDS: POTASSIUM CHLORIDE 25 MEQ EFFERVESCENT TAB NG SCH ×2 (09:55→20:52)
[2017-01-02] MEDS: PRAVASTATIN SOD 40 MG TAB PO SCH (09:55)
[2017-01-02] MEDS: amLODIPine BESYLATE 5 MG TAB PO SCH (09:55)
[2017-01-02 12:00] VITALS: BP 121/80; PULSE 86; RESP 20; TEMP 97.6; O2SAT 94
[2017-01-02 16:07] VITALS: BP 117/79; PULSE 89; RESP 18; TEMP 98.3; O2SAT 97
[2017-01-02 20:02] VITALS: BP 129/74; PULSE 82; RESP 18; TEMP 97.3; O2SAT 95
[2017-01-02] MEDS: ENOXAPARIN SODIUM 40 MG/0.4 ML SYRINGE SQ SCH (20:52)
[2017-01-03 00:34] VITALS: BP 116/72; PULSE 75; RESP 18; TEMP 96.4; O2SAT 94
[2017-01-03] MEDS: CHLORHEXIDINE GLUCONATE 2 % 1 PACK (2 CLOTHS) TOP SCH (04:00)
[2017-01-03] MEDS: LABETALOL HCL 100 MG TAB PO SCH ×3 (04:14→20:14)
[2017-01-03 04:47] VITALS: BP 121/74; PULSE 67; RESP 18; TEMP 96.2; O2SAT 94
[2017-01-03 08:00] VITALS: BP 129/85; PULSE 73; RESP 20; TEMP 97.2; O2SAT 91
[2017-01-03] MEDS: ARTIFICIAL TEARS OPTH SOLN 15 ML BTL EACH EYE SCH ×3 (09:00→18:00)
[2017-01-03] MEDS: NYSTATIN 100,000 U/GM PWD 15 GM BTL TOPICAL SCH ×3 (09:00→18:00)
[2017-01-03] MEDS: POTASSIUM CHLORIDE 25 MEQ EFFERVESCENT TAB NG SCH ×2 (09:06→20:14)
[2017-01-03] MEDS: PRAVASTATIN SOD 40 MG TAB PO SCH (09:06)
[2017-01-03] MEDS: FLUDROCORTISONE ACETATE 0.1 MG TAB PO SCH (09:06)
[2017-01-03] MEDS: amLODIPine BESYLATE 5 MG TAB PO SCH (09:07)
[2017-01-03] MEDS: PANTOPRAZOLE SOD 40 MG DELAYED RELEASE TAB PO SCH (09:07)
[2017-01-03] MEDS: LACTOBACILLUS ACIDOPHILUS TAB PO SCH ×2 (09:07→20:14)
[2017-01-03] MEDS: QUEtiapine FUMARATE 25 MG TAB PO SCH ×3 (09:07→20:14)
--- NOTE | 2017-01-03 10:40 | HHI.PR ---
Subjective Remarks Follow-up for intracranial hemorrhage, basilar tip aneurysm. Patient seen and examined laying in bed awake and comfortable. Alert, pleasantly confused. Tolerating PO intake. Denies any recent fever, chills, cough, headache, ab pain , n/v, diarrhea or dysuria. Requested RN please notify general surgery to remove PEG today. Objective Vitals Vital Signs Date Time Temp Pulse Resp B/P Pulse Ox O2 Delivery O2 Flow Rate FiO2 01/03/17 08:00 97.2 73 20 129/85 91 01/03/17 04:47 96.2 67 18 121/74 94 01/03/17 00:34 96.4 75 18 116/72 94 01/02/17 20:02 97.3 82 18 129/74 95 01/02/17 16:07 98.3 89 18 117/79 97 01/02/17 12:00 97.6 86 20 121/80 94 I/O 01/02/17 01/02/17 01/02/17 01/03/17 01/03/17 01/03/17 07:00 15:00 23:00 07:00 15:00 23:00 Intake Total 720 ml 240 ml 120 ml Balance 720 ml 240 ml 120 ml Intake Oral 720 ml 240 ml 120 ml # Voids 2 # Bowel Movements 0 Result Diagram: 12/30/16 0825 Imaging Last Impressions Head CT 12/09/16 0000 Signed Impressions: Service Date/Time: Friday, December 09, 2016 17:36 - CONCLUSION: 1. Right ventriculostomy tube remains in place with decrease in ventricular size since November 24. There is some encephalomalacia around the shunt and a probable small infarct in the left basal ganglia. No new hemorrhage or shift. Tip Harris MD Abdomen X-Ray 11/28/16 0000 Signed Impressions: Service Date/Time: Monday, November 28, 2016 16:00 - CONCLUSION: 1. No evidence of bowel obstruction, ileus or perforation. 2. Degenerative changes and scoliosis of the thoracolumbar spine. 3. Degenerative changes involving the hip joints bilaterally. Juan Worley MD Chest X-Ray 11/01/16 0600 Signed Impressions: Service Date/Time: Tuesday, November 01, 2016 04:37 - CONCLUSION: 1. No acute cardiopulmonary disease. Trevin De León MD Transcranial Doppler Study Complete 10/26/16 0700 Signed Impressions: Service Date/Time: Wednesday, October 26, 2016 08:20 - CONCLUSION: Minimal interval improvement with no evidence for vasospasm. Christian Song MD FACR Neck CTA 10/19/16 0000 Signed Impressions: Service Date/Time: Wednesday, October 19, 2016 14:19 - CONCLUSION: Negative for dissection or significant stenosis. Christian Song MD FACR Head CTA 10/19/16 0000 Signed Impressions: Service Date/Time: Wednesday, October 19, 2016 14:19 - CONCLUSION: 1. Interval development of significant vasospasm in the left MCA and SRI territories. 2. Mild vasospasm in the basilar artery.. Gume Mckeon MD Cerebral Arteriogram 10/19/16 0000 Signed Impressions: Service Date/Time: Wednesday, October 19, 2016 16:06 - CONCLUSION: 1. Vasospasm in the left MCA and SRI territories 2. Spasmolytic infusion, left internal carotid artery as above.. 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 Gume Mckeon MD Pelvis X-Ray 10/05/16109 Signed Impressions: Service Date/Time: Wednesday, October 05, 2016 01:22 - CONCLUSION: Unremarkable examination of the pelvis. Ruben Acuña Jr., MD Chest CT 10/05/16109 Signed Impressions: Service Date/Time: Wednesday, October 05, 2016 01:46 - CONCLUSION: 1. No acute intrathoracic abnormality. 2. Bibasilar atelectasis. 3. Cardiomegaly. 4. Prior granulomatous disease. Ruben Acuña Jr., MD Cervical Spine CT 10/05/16109 Signed Impressions: Service Date/Time: Wednesday, October 05, 2016 01:40 - CONCLUSION: 1. No fracture or dislocation. 2. Multilevel degenerative changes. Ruben Acuña Jr., MD Abdomen/Pelvis CT 10/05/16109 Signed Impressions: Service Date/Time: Wednesday, October 05, 2016 01:46 - CONCLUSION: 1. No acute trauma. 2. Rounded area of decreased density involving the pancreatic head. I cannot completely exclude pancreatic head mass. At some point MRI of the pancreas is suggested to further evaluate. 3. Focal area of poor enhancement involving the left kidney. This may relate to an area of parenchymal scarring. I cannot completely exclude a mass. This can be further assessed with MRI as well. Ruben Acuña Jr., MD Objective Remarks GENERAL: Well-nourished, well-developed male patient, in no apparent distress sleeping in bed comfortably. Pleasantly confused, oriented x 1 to self. SKIN: No rash. Warm and dry. HEENT: Pupils equal round and reactive. Normocephalic. Extraocular motions intact. No scleral icterus. No injection or drainage. Oral mucosa moist. NECK: Trachea midline. Supple. CARDIOVASCULAR: RRR. No murmur appreciated. RESPIRATORY: Clear to auscultation. Breath sounds equal bilaterally. No wheezes , rales, or rhonchi. GASTROINTESTINAL: Abdomen soft, non-tender, nondistended. No guarding. Abdominal binder in place. PEG in place. MUSCULOSKELETAL: Extremities without clubbing, cyanosis, or edema. NEUROLOGICAL: Awake and alert. Moves all 4 extremities, equal no weakness noted. Procedures 10/05/16 right frontal twist drill for ventriculostomy placement 10/20/16 arterial line placement 10/23/16 bedside percutaneous tracheostomy under direct bronchoscopic visualization 10/24/16 PEG tube placement at bedside Urinary Catheter: No Vascular Central Line Catheter: No A/P Problem List: (1) 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 ICD Code: I60.8 Status: Acute (2) Hypertension ICD Code: I10 Status: Chronic (3) Major neurocognitive disorder due to vascular disease, without behavioral disturbance, severe ICD Code: F01.50 Status: Acute (4) Septic shock ICD Code: A41.9 Status: Resolved (5) Hydrocephalus ICD Code: G91.9 Status: Acute (6) Intracranial hemorrhage ICD Code: I62.9 Status: Acute (7) Major neurocognitive disorder as late effect of traumatic brain injury with behavioral disturbance ICD Code: S06.9X9S Status: Acute (8) Encephalopathy ICD Code: G93.40 Status: Acute (9) Sepsis ICD Code: A41.9 Status: Resolved (10) Pneumonia ICD Code: J18.9 Status: Acute (11) Protein-calorie malnutrition, mild ICD Code: E44.1 Status: Acute (12) Acute respiratory failure with hypoxia and hypercarbia ICD Code: J96.01 Status: Acute Assessment and Plan Mr. Nunez is a 51 year old male who was brought to the hospital as a trauma alert due to head injury after he fell in the bathroom and hit his head. Patient was unresponsive for approximately 15 minutes by the time ambulance services arrived. His mentation waxed and waned with GCS ranging from [address] head indicated subarachnoid hemorrhage, acute. 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 Requested to have general surgery remove PEG tube. - Cont PT/OT Acute hypoxic hypercarbic respiratory failure -Tracheostomy 10/23/16, removed, old trach site open to air -Follow respiratory status Cerebral salt wasting: -Follow sodium levels, labs stable -Continue Florinef -By mouth sodium tablets C. difficile colitis, resolved -Completed Flagyl on 10/23 -Follow for diarrhea -Cont Lactinex Hypokalemia, resolved. - Continue supplementation. -Follow and replace as needed DVT prophylaxis: SCDs, YOUSIF hose, Lovenox. GI prophylaxis: Protonix. Discharge Planning Last CM note: 12/29/16 2:40pm: According to [facility] pt's account remains the same. CM was shone paperwork that pt's spouse is applying for guardianship. Problem Qualifiers (1) Hypertension: Qualified Code: I10 - Essential hypertension Dariela Del Cid Jan 03, 2017 10:40
[2017-01-03 12:00] VITALS: BP 110/70; PULSE 79; RESP 20; TEMP 96.4; O2SAT 97
[2017-01-03 16:00] VITALS: BP 118/82; PULSE 80; RESP 20; TEMP 98.9; O2SAT 99
[2017-01-03 20:00] VITALS: BP 145/81; PULSE 89; RESP 18; TEMP 97.2; O2SAT 92
[2017-01-03] MEDS: ENOXAPARIN SODIUM 40 MG/0.4 ML SYRINGE SQ SCH (20:15)
[2017-01-04] VITALS: BP 115/64; PULSE 71; RESP 17; TEMP 98.2; O2SAT 99
[2017-01-04] MEDS: LABETALOL HCL 100 MG TAB PO SCH ×3 (03:51→20:53)
[2017-01-04 04:00] VITALS: BP 118/73; PULSE 71; RESP 18; TEMP 97; O2SAT 93
[2017-01-04] MEDS: CHLORHEXIDINE GLUCONATE 2 % 1 PACK (2 CLOTHS) TOP SCH (04:00)
[2017-01-04 07:35] VITALS: BP 120/78; PULSE 73; RESP 17; TEMP 96.8; O2SAT 97
[2017-01-04] MEDS: PRAVASTATIN SOD 40 MG TAB PO SCH (08:48)
[2017-01-04] MEDS: FLUDROCORTISONE ACETATE 0.1 MG TAB PO SCH (08:48)
[2017-01-04] MEDS: amLODIPine BESYLATE 5 MG TAB PO SCH (08:48)
[2017-01-04] MEDS: QUEtiapine FUMARATE 25 MG TAB PO SCH ×3 (08:48→20:48)
[2017-01-04] MEDS: PANTOPRAZOLE SOD 40 MG DELAYED RELEASE TAB PO SCH (08:48)
[2017-01-04] MEDS: POTASSIUM CHLORIDE 25 MEQ EFFERVESCENT TAB NG SCH ×2 (08:49→20:49)
[2017-01-04] MEDS: LACTOBACILLUS ACIDOPHILUS TAB PO SCH ×2 (08:56→20:48)
[2017-01-04] MEDS: ARTIFICIAL TEARS OPTH SOLN 15 ML BTL EACH EYE SCH ×3 (09:00→18:00)
[2017-01-04] MEDS: NYSTATIN 100,000 U/GM PWD 15 GM BTL TOPICAL SCH ×3 (09:00→18:00)
--- NOTE | 2017-01-04 09:33 | HHI.PR ---
Subjective Remarks Follow-up for intracranial hemorrhage, basilar tip aneurysm. Patient seen and examined, sitting at nursing station in chair comfortably. Denies any new acute events overnight. Still pleasantly confused, oriented to self only. Afebrile. Objective Vitals Vital Signs Date Time Temp Pulse Resp B/P Pulse Ox O2 Delivery O2 Flow Rate FiO2 01/04/17 07:35 96.8 73 17 120/78 97 01/04/17 04:00 97.0 71 18 118/73 93 01/04/17 00:00 98.2 71 17 115/64 99 01/03/17 20:00 97.2 89 18 145/81 92 01/03/17 16:00 98.9 80 20 118/82 99 01/03/17 12:00 96.4 79 20 110/70 97 I/O 01/03/17 01/03/17 01/03/17 01/04/17 01/04/17 01/04/17 07:00 15:00 23:00 07:00 15:00 23:00 Intake Total 120 ml Balance 120 ml Intake Oral 120 ml # Voids 2 4 5 # Bowel Movements 0 1 1 Imaging Last Impressions Head CT 12/09/16 0000 Signed Impressions: Service Date/Time: Friday, December 09, 2016 17:36 - CONCLUSION: 1. Right ventriculostomy tube remains in place with decrease in ventricular size since November 24. There is some encephalomalacia around the shunt and a probable small infarct in the left basal ganglia. No new hemorrhage or shift. Tip Harris MD Abdomen X-Ray 11/28/16 0000 Signed Impressions: Service Date/Time: Monday, November 28, 2016 16:00 - CONCLUSION: 1. No evidence of bowel obstruction, ileus or perforation. 2. Degenerative changes and scoliosis of the thoracolumbar spine. 3. Degenerative changes involving the hip joints bilaterally. Juan Worley MD Chest X-Ray 11/01/16 0600 Signed Impressions: Service Date/Time: Tuesday, November 01, 2016 04:37 - CONCLUSION: 1. No acute cardiopulmonary disease. Trevin De León MD Transcranial Doppler Study Complete 10/26/16 0700 Signed Impressions: Service Date/Time: Wednesday, October 26, 2016 08:20 - CONCLUSION: Minimal interval improvement with no evidence for vasospasm. Christian Song MD FACR Neck CTA 10/19/16 0000 Signed Impressions: Service Date/Time: Wednesday, October 19, 2016 14:19 - CONCLUSION: Negative for dissection or significant stenosis. Christian Song MD FACR Head CTA 10/19/16 0000 Signed Impressions: Service Date/Time: Wednesday, October 19, 2016 14:19 - CONCLUSION: 1. Interval development of significant vasospasm in the left MCA and SRI territories. 2. Mild vasospasm in the basilar artery.. Gume Mckeon MD Cerebral Arteriogram 10/19/16 Signed Impressions: Service Date/Time: Wednesday, October 19, 2016 16:06 - CONCLUSION: 1. Vasospasm in the left MCA and SRI territories 2. Spasmolytic infusion, left internal carotid artery as above.. 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 Gume Mckeon MD Pelvis X-Ray 10/05/16109 Signed Impressions: Service Date/Time: Wednesday, October 05, 2016 01:22 - CONCLUSION: Unremarkable examination of the pelvis. Ruben Acuña Jr., MD Chest CT 10/05/16109 Signed Impressions: Service Date/Time: Wednesday, October 05, 2016 01:46 - CONCLUSION: 1. No acute intrathoracic abnormality. 2. Bibasilar atelectasis. 3. Cardiomegaly. 4. Prior granulomatous disease. Ruben Acuña Jr., MD Cervical Spine CT 10/05/16109 Signed Impressions: Service Date/Time: Wednesday, October 05, 2016 01:40 - CONCLUSION: 1. No fracture or dislocation. 2. Multilevel degenerative changes. Ruben Acuña Jr., MD Abdomen/Pelvis CT 10/05/16109 Signed Impressions: Service Date/Time: Wednesday, October 05, 2016 01:46 - CONCLUSION: 1. No acute trauma. 2. Rounded area of decreased density involving the pancreatic head. I cannot completely exclude pancreatic head mass. At some point MRI of the pancreas is suggested to further evaluate. 3. Focal area of poor enhancement involving the left kidney. This may relate to an area of parenchymal scarring. I cannot completely exclude a mass. This can be further assessed with MRI as well. Ruben Acuña Jr., MD Objective Remarks GENERAL: Well-nourished, well-developed male patient, in no apparent distress sleeping in bed comfortably. Pleasantly confused, oriented x 1 to self. SKIN: No rash. Warm and dry. HEENT: Pupils equal round and reactive. Normocephalic. Extraocular motions intact. No scleral icterus. No injection or drainage. Oral mucosa moist. NECK: Trachea midline. Supple. CARDIOVASCULAR: RRR. No murmur appreciated. RESPIRATORY: Clear to auscultation. Breath sounds equal bilaterally. No wheezes , rales, or rhonchi. GASTROINTESTINAL: Abdomen soft, non-tender, nondistended. No guarding. Abdominal binder in place. PEG in place. MUSCULOSKELETAL: Extremities without clubbing, cyanosis, or edema. NEUROLOGICAL: Awake and alert. Moves all 4 extremities, equal no weakness noted. 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 ICD Code: I60.8 Status: Acute (2) Hypertension ICD Code: I10 Status: Chronic (3) Major neurocognitive disorder due to vascular disease, without behavioral disturbance, severe ICD Code: F01.50 Status: Acute (4) Septic shock ICD Code: A41.9 Status: Resolved (5) Hydrocephalus ICD Code: G91.9 Status: Acute (6) Intracranial hemorrhage ICD Code: I62.9 Status: Acute (7) Major neurocognitive disorder as late effect of traumatic brain injury with behavioral disturbance ICD Code: S06.9X9S Status: Acute (8) Encephalopathy ICD Code: G93.40 Status: Acute (9) Sepsis ICD Code: A41.9 Status: Resolved (10) Pneumonia ICD Code: J18.9 Status: Acute (11) Protein-calorie malnutrition, mild ICD Code: E44.1 Status: Acute (12) Acute respiratory failure with hypoxia and hypercarbia ICD Code: J96.01 Status: Acute Assessment and Plan Mr. Nunez is a 51 year old male who was brought to the hospital as a trauma alert due to head injury after he fell in the bathroom and hit his head. Patient was unresponsive for approximately 15 minutes by the time ambulance services arrived. His mentation waxed and waned with GCS ranging from [address] head indicated subarachnoid hemorrhage, acute. Intracranial hemorrhage, Status post basilar artery coiling 10/05, Status post SUPPORT MANAGER shunt on 11/24/2016 Chronic encephalopathy Hydrocephalus, Slow improvement -Continue Keppra -Followed by neurology - Speech therapy recommends regular diet with thin liquids, Patient is eating well, D/c TF. Requested to have general surgery remove PEG tube. - Cont PT/OT Acute hypoxic hypercarbic respiratory failure -Tracheostomy 10/23/16, removed, old trach site open to air -Follow respiratory status Cerebral salt wasting: -Follow sodium levels, labs stable -Continue Florinef -By mouth sodium tablets C. difficile colitis, resolved -Completed Flagyl on 10/23 -Follow for diarrhea -Cont Lactinex Hypokalemia, resolved. - Continue supplementation. -Follow and replace as needed DVT prophylaxis: SCDs, YOUSIF hose, Lovenox. GI prophylaxis: Protonix. Discharge Planning Last CM note: 12/29/16 2:40pm: According to [facility] pt's account remains the same. CM was shone paperwork that pt's spouse is applying for guardianship. Problem Qualifiers (1) Hypertension: Qualified Code: I10 - Essential hypertension Dariela Del Cid Jan 04, 2017 09:33
[2017-01-04 12:05] VITALS: BP 125/68; PULSE 82; RESP 17; TEMP 97.2; O2SAT 96
[2017-01-04 16:11] VITALS: BP 124/72; PULSE 84; RESP 17; TEMP 97; O2SAT 96
[2017-01-04] MEDS: ACETAMINOPHEN 325 MG TAB PO PRN (17:17)
[2017-01-04 19:46] VITALS: BP 116/71; PULSE 80; RESP 18; TEMP 96.3; O2SAT 97
[2017-01-04] MEDS: diphenhydrAMINE HCL 50 MG CAP PO PRN (20:49)
[2017-01-04] MEDS: ENOXAPARIN SODIUM 40 MG/0.4 ML SYRINGE SQ SCH (20:50)
[2017-01-05] VITALS: BP 107/58; PULSE 74; RESP 18; TEMP 96.8; O2SAT 94
[2017-01-05] MEDS: CHLORHEXIDINE GLUCONATE 2 % 1 PACK (2 CLOTHS) TOP SCH (03:33)
[2017-01-05 04:00] VITALS: BP 119/75; PULSE 70; RESP 20; TEMP 96.3; O2SAT 94
[2017-01-05] MEDS: LABETALOL HCL 100 MG TAB PO SCH ×3 (04:53→20:44)
[2017-01-05] MEDS: PRAVASTATIN SOD 40 MG TAB PO SCH (08:05)
[2017-01-05] MEDS: FLUDROCORTISONE ACETATE 0.1 MG TAB PO SCH (08:05)
[2017-01-05] MEDS: LACTOBACILLUS ACIDOPHILUS TAB PO SCH ×2 (08:05→20:48)
[2017-01-05] MEDS: QUEtiapine FUMARATE 25 MG TAB PO SCH ×3 (08:05→20:44)
[2017-01-05] MEDS: amLODIPine BESYLATE 5 MG TAB PO SCH (08:05)
[2017-01-05] MEDS: PANTOPRAZOLE SOD 40 MG DELAYED RELEASE TAB PO SCH (08:05)
[2017-01-05] MEDS: ARTIFICIAL TEARS OPTH SOLN 15 ML BTL EACH EYE SCH ×3 (08:07→17:14)
[2017-01-05] MEDS: POTASSIUM CHLORIDE 25 MEQ EFFERVESCENT TAB NG SCH ×2 (08:07→20:44)
[2017-01-05 08:10] VITALS: BP 118/80; PULSE 99; RESP 17; TEMP 97.6; O2SAT 98
[2017-01-05] MEDS: NYSTATIN 100,000 U/GM PWD 15 GM BTL TOPICAL SCH ×3 (08:55→17:14)
[2017-01-05 11:16] LABS: AUTOMATED NEUTROPHIL # 2.8 TH/MM3 (1.8-7.7); BASOPHIL # 0.1 TH/MM3 (0-0.2); BASOPHIL % 1.3 % (0.0-2.0); EOSINOPHIL # 0.2 TH/MM3 (0-0.4); EOSINOPHIL % 5.5 % (0.0-4.0); HEMATOCRIT 38.6 % (39.0-51.0); HEMOGLOBIN 12.4 GM/DL (13.0-17.0); LYMPH % 23.4 % (9.0-44.0); LYMPHOCYTE # 1.1 TH/MM3 (1.0-4.8); MEAN CELL VOLUME 89.3 FL (80.0-100.0); MEAN CORPUSCULAR HEMOGLOBIN 28.6 PG (27.0-34.0); MEAN PLATELET VOLUME 9.9 FL (7.0-11.0); MONO % 8.5 % (0.0-8.0); MONOCYTE # 0.4 TH/MM3 (0-0.9); NEUT % 61.3 % (16.0-70.0); PLATELET COUNT 186 TH/MM3 (150-450); RED BLOOD COUNT 4.32 MIL/MM3 (4.50-5.90); RED CELL DISTRIBUTION WIDTH 15.3 % (11.6-17.2); WHITE BLOOD COUNT 4.6 TH/MM3 (4.0-11.0)
--- NOTE | 2017-01-05 11:26 | HHI.PR ---
Subjective Remarks Follow-up for intracranial hemorrhage, basilar tip aneurysm. Patient seen and examined, sitting up in chair eating breakfast at by nurses station. Pleasantly confused today, oriented only to self. Follows all commands. Denies any new acute complaints overnight. Afebrile. Denies any headache, lightheadedness, chest pain, ab pain, n/v, diarrhea or dysuria. Objective Vitals Vital Signs Date Time Temp Pulse Resp B/P Pulse Ox O2 Delivery O2 Flow Rate FiO2 01/05/17 08:10 97.6 99 17 118/80 98 01/05/17 04:00 96.3 70 20 119/75 94 01/05/17 00:00 96.8 74 18 107/58 94 01/04/17 19:46 96.3 80 18 116/71 97 01/04/17 16:11 97.0 84 17 124/72 96 01/04/17 12:05 97.2 82 17 125/68 96 I/O 01/04/17 01/04/17 01/04/17 01/05/17 01/05/17 01/05/17 07:00 15:00 23:00 07:00 15:00 23:00 Intake Total 840 ml 120 ml Balance 840 ml 120 ml Intake Oral 840 ml 120 ml # Voids 5 3 1 3 # Bowel Movements 1 0 Result Diagram: 01/05/17 1044 Imaging Last Impressions Head CT 12/09/16 0000 Signed Impressions: Service Date/Time: Friday, December 09, 2016 17:36 - CONCLUSION: 1. Right ventriculostomy tube remains in place with decrease in ventricular size since November 24. There is some encephalomalacia around the shunt and a probable small infarct in the left basal ganglia. No new hemorrhage or shift. Tip Harris MD Abdomen X-Ray 11/28/16 0000 Signed Impressions: Service Date/Time: Monday, November 28, 2016 16:00 - CONCLUSION: 1. No evidence of bowel obstruction, ileus or perforation. 2. Degenerative changes and scoliosis of the thoracolumbar spine. 3. Degenerative changes involving the hip joints bilaterally. Juan Worley MD Chest X-Ray 11/01/16 0600 Signed Impressions: Service Date/Time: Tuesday, November 01, 2016 04:37 - CONCLUSION: 1. No acute cardiopulmonary disease. Trevin De León MD Transcranial Doppler Study Complete 10/26/16 0700 Signed Impressions: Service Date/Time: Wednesday, October 26, 2016 08:20 - CONCLUSION: Minimal interval improvement with no evidence for vasospasm. Christian Song MD FACR Neck CTA 10/19/16 0000 Signed Impressions: Service Date/Time: Wednesday, October 19, 2016 14:19 - CONCLUSION: Negative for dissection or significant stenosis. Christian Song MD FACR Head CTA 10/19/16 0000 Signed Impressions: Service Date/Time: Wednesday, October 19, 2016 14:19 - CONCLUSION: 1. Interval development of significant vasospasm in the left MCA and SRI territories. 2. Mild vasospasm in the basilar artery.. Gume Mckeon MD Cerebral Arteriogram 10/19/16 0000 Signed Impressions: Service Date/Time: Wednesday, October 19, 2016 16:06 - CONCLUSION: 1. Vasospasm in the left MCA and SRI territories 2. Spasmolytic infusion, left internal carotid artery as above.. 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 Gume Mckeon MD Pelvis X-Ray 10/05/16109 Signed Impressions: Service Date/Time: Wednesday, October 05, 2016 01:22 - CONCLUSION: Unremarkable examination of the pelvis. Ruben Acuña Jr., MD Chest CT 10/05/16109 Signed Impressions: Service Date/Time: Wednesday, October 05, 2016 01:46 - CONCLUSION: 1. No acute intrathoracic abnormality. 2. Bibasilar atelectasis. 3. Cardiomegaly. 4. Prior granulomatous disease. Ruben Acuña Jr., MD Cervical Spine CT 10/05/16109 Signed Impressions: Service Date/Time: Wednesday, October 05, 2016 01:40 - CONCLUSION: 1. No fracture or dislocation. 2. Multilevel degenerative changes. Ruben Acuña Jr., MD Abdomen/Pelvis CT 10/05/16109 Signed Impressions: Service Date/Time: Wednesday, October 05, 2016 01:46 - CONCLUSION: 1. No acute trauma. 2. Rounded area of decreased density involving the pancreatic head. I cannot completely exclude pancreatic head mass. At some point MRI of the pancreas is suggested to further evaluate. 3. Focal area of poor enhancement involving the left kidney. This may relate to an area of parenchymal scarring. I cannot completely exclude a mass. This can be further assessed with MRI as well. Ruben Acuña Jr., MD Objective Remarks GENERAL: Well-nourished, well-developed male patient, in no apparent distress sleeping in bed comfortably. Pleasantly confused, oriented x 1 to self. SKIN: No rash. Warm and dry. HEENT: Pupils equal round and reactive. Normocephalic. Extraocular motions intact. No scleral icterus. No injection or drainage. Oral mucosa moist. NECK: Trachea midline. Supple. CARDIOVASCULAR: RRR. No murmur appreciated. RESPIRATORY: Clear to auscultation. Breath sounds equal bilaterally. No wheezes , rales, or rhonchi. GASTROINTESTINAL: Abdomen soft, non-tender, nondistended. No guarding. MUSCULOSKELETAL: Extremities without clubbing, cyanosis, or edema. NEUROLOGICAL: Awake and alert. Moves all 4 extremities, equal no weakness noted. 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 ICD Code: I60.8 Status: Acute (2) Hypertension ICD Code: I10 Status: Chronic (3) Major neurocognitive disorder due to vascular disease, without behavioral disturbance, severe ICD Code: F01.50 Status: Acute (4) Septic shock ICD Code: A41.9 Status: Resolved (5) Hydrocephalus ICD Code: G91.9 Status: Acute (6) Intracranial hemorrhage ICD Code: I62.9 Status: Acute (7) Major neurocognitive disorder as late effect of traumatic brain injury with behavioral disturbance ICD Code: S06.9X9S Status: Acute (8) Encephalopathy ICD Code: G93.40 Status: Acute (9) Sepsis ICD Code: A41.9 Status: Resolved (10) Pneumonia ICD Code: J18.9 Status: Acute (11) Protein-calorie malnutrition, mild ICD Code: E44.1 Status: Acute (12) Acute respiratory failure with hypoxia and hypercarbia ICD Code: J96.01 Status: Acute Assessment and Plan Mr. Nunez is a 51 year old male who was brought to the hospital as a trauma alert due to head injury after he fell in the bathroom and hit his head. Patient was unresponsive for approximately 15 minutes by the time ambulance services arrived. His mentation waxed and waned with GCS ranging from [address] head indicated subarachnoid hemorrhage, acute. 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 Requested to have general surgery remove PEG tube. - Cont PT/OT Acute hypoxic hypercarbic respiratory failure -Tracheostomy 10/23/16, removed, old trach site open to air -Follow respiratory status Cerebral salt wasting: -Follow sodium levels, labs stable -Continue Florinef C. difficile colitis, resolved -Completed Flagyl on 10/23 -Follow for diarrhea, denies any at this time. -Cont Lactinex Hypokalemia, resolved. - Awaiting BMP today, follow. - Follow and replace as needed. DVT prophylaxis: SCDs, YOUSIF hose, Lovenox. Ambulation. GI prophylaxis: Protonix. Discharge Planning Last CM note: 12/29/16 2:40pm: According to [facility] pt's account remains the same. CM was shone paperwork that pt's spouse is applying for guardianship. Attending Statement Patient seen in her bedroom, discussed with PA MrsAlisha Dariela Nehemias evaluated and read chart, has stable vital signs and Laboratory evaluated and also within normal limits, patient is confused with fugue of ideas, not yet able to be discharged awaiting for placement. Problem Qualifiers (1) Hypertension: Qualified Code: I10 - Essential hypertension Dariela Del Cid Jan 05, 2017 11:26 Luciano Gomez MD Jan 06, 2017 15:45
[2017-01-05 11:35] LABS: BICARBONATE 25.6 MEQ/L (21.0-32.0); CALCIUM 8.9 MG/DL (8.5-10.1); CREATININE 1.12 MG/DL (0.60-1.30)
[2017-01-05 12:38] VITALS: BP 120/88; PULSE 90; RESP 17; TEMP 95.7; O2SAT 95
[2017-01-05 16:06] VITALS: BP 118/79; PULSE 78; RESP 17; TEMP 96.1; O2SAT 96
[2017-01-05 20:00] VITALS: BP 124/81; PULSE 81; RESP 20; TEMP 96.1; O2SAT 98
[2017-01-05] MEDS: ENOXAPARIN SODIUM 40 MG/0.4 ML SYRINGE SQ SCH (20:44)
[2017-01-06] MEDS: CHLORHEXIDINE GLUCONATE 2 % 1 PACK (2 CLOTHS) TOP SCH (02:41)
[2017-01-06] MEDS: LABETALOL HCL 100 MG TAB PO SCH ×3 (03:51→21:41)
[2017-01-06 04:00] VITALS: BP 124/79; PULSE 74; RESP 20; TEMP 95.9; O2SAT 94
[2017-01-06 08:00] VITALS: BP 107/55; PULSE 76; RESP 17; TEMP 98.4; O2SAT 96
[2017-01-06] MEDS: QUEtiapine FUMARATE 25 MG TAB PO SCH ×3 (08:55→21:41)
[2017-01-06] MEDS: PRAVASTATIN SOD 40 MG TAB PO SCH (08:55)
[2017-01-06] MEDS: PANTOPRAZOLE SOD 40 MG DELAYED RELEASE TAB PO SCH (08:55)
[2017-01-06] MEDS: FLUDROCORTISONE ACETATE 0.1 MG TAB PO SCH (08:55)
[2017-01-06] MEDS: LACTOBACILLUS ACIDOPHILUS TAB PO SCH ×2 (08:55→21:41)
[2017-01-06] MEDS: amLODIPine BESYLATE 5 MG TAB PO SCH (08:55)
[2017-01-06] MEDS: NYSTATIN 100,000 U/GM PWD 15 GM BTL TOPICAL SCH ×3 (08:56→17:23)
[2017-01-06] MEDS: ARTIFICIAL TEARS OPTH SOLN 15 ML BTL EACH EYE SCH ×3 (08:57→17:23)
[2017-01-06] MEDS: POTASSIUM CHLORIDE 25 MEQ EFFERVESCENT TAB NG SCH ×2 (09:00→21:41)
--- NOTE | 2017-01-06 09:43 | HHI.PR ---
Subjective Remarks Follow-up for intracranial hemorrhage, basilar tip aneurysm. Patient seen and examined, lying in bed using his patient Avatar. Pleasant. Awake and alert, oriented to self only. Follows all commands. Ambulating well with standby assist. Tolerating PO intake. Denies any new acute events. Objective Vitals Vital Signs Date Time Temp Pulse Resp B/P Pulse Ox O2 Delivery O2 Flow Rate FiO2 01/06/17 04:00 95.9 74 20 124/79 94 01/05/17 20:00 96.1 81 20 124/81 98 01/05/17 16:06 96.1 78 17 118/79 96 01/05/17 12:38 95.7 90 17 120/88 95 I/O 01/05/17 01/05/17 01/05/17 01/06/17 01/06/17 01/06/17 07:00 15:00 23:00 07:00 15:00 23:00 Intake Total 120 ml 600 ml 240 ml Balance 120 ml 600 ml 240 ml Intake Oral 120 ml 600 ml 240 ml # Voids 3 4 2 1 # Bowel Movements 0 2 1 Result Diagram: 01/05/17 1044 01/05/17 1044 Imaging Last Impressions Head CT 12/09/16 0000 Signed Impressions: Service Date/Time: Friday, December 09, 2016 17:36 - CONCLUSION: 1. Right ventriculostomy tube remains in place with decrease in ventricular size since November 24. There is some encephalomalacia around the shunt and a probable small infarct in the left basal ganglia. No new hemorrhage or shift. Tip Harris MD Abdomen X-Ray 11/28/16 0000 Signed Impressions: Service Date/Time: Monday, November 28, 2016 16:00 - CONCLUSION: 1. No evidence of bowel obstruction, ileus or perforation. 2. Degenerative changes and scoliosis of the thoracolumbar spine. 3. Degenerative changes involving the hip joints bilaterally. Juan Worley MD Chest X-Ray 11/01/16 0600 Signed Impressions: Service Date/Time: Tuesday, November 01, 2016 04:37 - CONCLUSION: 1. No acute cardiopulmonary disease. Trevin De León MD Transcranial Doppler Study Complete 10/26/16 0700 Signed Impressions: Service Date/Time: Wednesday, October 26, 2016 08:20 - CONCLUSION: Minimal interval improvement with no evidence for vasospasm. Christian Song MD FACR Neck CTA 10/19/16 0000 Signed Impressions: Service Date/Time: Wednesday, October 19, 2016 14:19 - CONCLUSION: Negative for dissection or significant stenosis. Christian Song MD FACR Head CTA 10/19/16 0000 Signed Impressions: Service Date/Time: Wednesday, October 19, 2016 14:19 - CONCLUSION: 1. Interval development of significant vasospasm in the left MCA and SRI territories. 2. Mild vasospasm in the basilar artery.. Gume Mckeon MD Cerebral Arteriogram 10/19/16 0000 Signed Impressions: Service Date/Time: Wednesday, October 19, 2016 16:06 - CONCLUSION: 1. Vasospasm in the left MCA and SRI territories 2. Spasmolytic infusion, left internal carotid artery as above.. 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 Gume Mckeon MD Pelvis X-Ray 10/05/16109 Signed Impressions: Service Date/Time: Wednesday, October 05, 2016 01:22 - CONCLUSION: Unremarkable examination of the pelvis. Ruben Acuña Jr., MD Chest CT 10/05/16109 Signed Impressions: Service Date/Time: Wednesday, October 05, 2016 01:46 - CONCLUSION: 1. No acute intrathoracic abnormality. 2. Bibasilar atelectasis. 3. Cardiomegaly. 4. Prior granulomatous disease. Ruben Acuña Jr., MD Cervical Spine CT 10/05/16109 Signed Impressions: Service Date/Time: Wednesday, October 05, 2016 01:40 - CONCLUSION: 1. No fracture or dislocation. 2. Multilevel degenerative changes. Ruben Acuña Jr., MD Abdomen/Pelvis CT 10/05/16109 Signed Impressions: Service Date/Time: Wednesday, October 05, 2016 01:46 - CONCLUSION: 1. No acute trauma. 2. Rounded area of decreased density involving the pancreatic head. I cannot completely exclude pancreatic head mass. At some point MRI of the pancreas is suggested to further evaluate. 3. Focal area of poor enhancement involving the left kidney. This may relate to an area of parenchymal scarring. I cannot completely exclude a mass. This can be further assessed with MRI as well. Ruben Acuña Jr., MD Objective Remarks GENERAL: Well-nourished, well-developed male patient, in no apparent distress sleeping in bed comfortably. Pleasantly confused, oriented x 1 to self. SKIN: No rash. Warm and dry. HEENT: Pupils equal round and reactive. Normocephalic. Extraocular motions intact. No scleral icterus. No injection or drainage. Oral mucosa moist. NECK: Trachea midline. Supple. CARDIOVASCULAR: RRR. No murmur appreciated. RESPIRATORY: Clear to auscultation. Breath sounds equal bilaterally. No wheezes , rales, or rhonchi. GASTROINTESTINAL: Abdomen soft, non-tender, nondistended. No guarding. MUSCULOSKELETAL: Extremities without clubbing, cyanosis, or edema. NEUROLOGICAL: Awake and alert. Moves all 4 extremities, equal no weakness noted. 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 ICD Code: I60.8 Status: Acute (2) Hypertension ICD Code: I10 Status: Chronic (3) Major neurocognitive disorder due to vascular disease, without behavioral disturbance, severe ICD Code: F01.50 Status: Acute (4) Septic shock ICD Code: A41.9 Status: Resolved (5) Hydrocephalus ICD Code: G91.9 Status: Acute (6) Intracranial hemorrhage ICD Code: I62.9 Status: Acute (7) Major neurocognitive disorder as late effect of traumatic brain injury with behavioral disturbance ICD Code: S06.9X9S Status: Acute (8) Encephalopathy ICD Code: G93.40 Status: Acute (9) Sepsis ICD Code: A41.9 Status: Resolved (10) Pneumonia ICD Code: J18.9 Status: Acute (11) Protein-calorie malnutrition, mild ICD Code: E44.1 Status: Acute (12) Acute respiratory failure with hypoxia and hypercarbia ICD Code: J96.01 Status: Acute Assessment and Plan Mr. Nunez is a 51 year old male who was brought to the hospital as a trauma alert due to head injury after he fell in the bathroom and hit his head. Patient was unresponsive for approximately 15 minutes by the time ambulance services arrived. His mentation waxed and waned with GCS ranging from [address] head indicated subarachnoid hemorrhage, acute. 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 Requested to have trauma to remove PEG tube. - Cont PT/OT Acute hypoxic hypercarbic respiratory failure -Tracheostomy 10/23/16, removed, old trach site open to air -Follow respiratory status Cerebral salt wasting: -Follow sodium levels, labs stable -Continue Florinef C. difficile colitis, resolved -Completed Flagyl on 10/23 -Follow for diarrhea, denies any at this time. -Cont Lactinex Hypokalemia, resolved: Follow and replace as needed. DVT prophylaxis: SCDs, YOUSIF hose, Lovenox. Ambulation. GI prophylaxis: Protonix. Discharge Planning Last CM note:Pt not a safe dc at this time. Attending Statement Patient seen in her bedroom, discussed with PA . Dariela Alvarezoten evaluated and read chart, has stable vital signs and Laboratory evaluated and also within normal limits, patient is confused with fugue of ideas, not yet able to be discharged awaiting for placement. Problem Qualifiers (1) Hypertension: Qualified Code: I10 - Essential hypertension Dariela Del Cid Jan 06, 2017 09:43 Luciano Gomez MD Jan 06, 2017 15:45
[2017-01-06 12:00] VITALS: BP 120/77; PULSE 86; RESP 18; TEMP 98.1; O2SAT 97
[2017-01-06 16:00] VITALS: BP 120/75; PULSE 89; RESP 17; TEMP 96.7; O2SAT 95
[2017-01-06 20:17] VITALS: BP 117/68; PULSE 90; RESP 16; TEMP 97.4; O2SAT 96
[2017-01-06] MEDS: ENOXAPARIN SODIUM 40 MG/0.4 ML SYRINGE SQ SCH (21:41)
[2017-01-07] VITALS (7 sets, daily range): BP systolic 100–133; BP diastolic 64–79; PULSE 71–98; RESP 16–18; TEMP 96.1–98.1; O2SAT 92–98
[2017-01-07] MEDS: CHLORHEXIDINE GLUCONATE 2 % 1 PACK (2 CLOTHS) TOP SCH (03:02)
[2017-01-07] MEDS: LABETALOL HCL 100 MG TAB PO SCH ×3 (03:11→21:43)
[2017-01-07] MEDS: amLODIPine BESYLATE 5 MG TAB PO SCH (08:32)
[2017-01-07] MEDS: PRAVASTATIN SOD 40 MG TAB PO SCH (08:32)
[2017-01-07] MEDS: QUEtiapine FUMARATE 25 MG TAB PO SCH ×3 (08:32→21:43)
[2017-01-07] MEDS: FLUDROCORTISONE ACETATE 0.1 MG TAB PO SCH (08:32)
[2017-01-07] MEDS: PANTOPRAZOLE SOD 40 MG DELAYED RELEASE TAB PO SCH (08:32)
[2017-01-07] MEDS: NYSTATIN 100,000 U/GM PWD 15 GM BTL TOPICAL SCH ×3 (08:32→17:36)
[2017-01-07] MEDS: LACTOBACILLUS ACIDOPHILUS TAB PO SCH ×2 (08:32→21:43)
[2017-01-07] MEDS: POTASSIUM CHLORIDE 25 MEQ EFFERVESCENT TAB NG SCH ×2 (08:33→21:43)
[2017-01-07] MEDS: ARTIFICIAL TEARS OPTH SOLN 15 ML BTL EACH EYE SCH ×3 (08:35→17:36)
--- NOTE | 2017-01-07 10:55 | HHI.PR ---
Subjective Remarks Follow-up for intracranial hemorrhage, basilar tip aneurysm. Patient seen and examined. Sitting up in chair at nursing station. Denies any new acute events overnight. Oriented to self, confused today to situation, place and time. Objective Vitals Vital Signs Date Time Temp Pulse Resp B/P Pulse Ox O2 Delivery O2 Flow Rate FiO2 01/07/17 07:42 97.6 80 18 119/69 96 01/07/17 04:41 97.6 71 17 106/65 94 01/07/17 03:06 78 17 111/67 94 01/07/17 00:28 98.1 77 17 100/64 92 01/06/17 20:17 97.4 90 16 117/68 96 01/06/17 16:00 96.7 89 17 120/75 95 01/06/17 12:00 98.1 86 18 120/77 97 I/O 01/06/17 01/06/17 01/06/17 01/07/17 01/07/17 01/07/17 07:00 15:00 23:00 07:00 15:00 23:00 Intake Total 240 ml 600 ml Output Total 240 ml Balance 240 ml 360 ml Intake Oral 240 ml 600 ml Output Urine Total 240 ml # Voids 1 2 1 1 # Bowel Movements 2 Result Diagram: 01/05/17 1044 01/05/17 1044 Imaging Last Impressions Head CT 12/09/16 0000 Signed Impressions: Service Date/Time: Friday, December 09, 2016 17:36 - CONCLUSION: 1. Right ventriculostomy tube remains in place with decrease in ventricular size since November 24. There is some encephalomalacia around the shunt and a probable small infarct in the left basal ganglia. No new hemorrhage or shift. Tip Harris MD Abdomen X-Ray 11/28/16 0000 Signed Impressions: Service Date/Time: Monday, November 28, 2016 16:00 - CONCLUSION: 1. No evidence of bowel obstruction, ileus or perforation. 2. Degenerative changes and scoliosis of the thoracolumbar spine. 3. Degenerative changes involving the hip joints bilaterally. Juan Worley MD Chest X-Ray 11/01/16 0600 Signed Impressions: Service Date/Time: Tuesday, November 01, 2016 04:37 - CONCLUSION: 1. No acute cardiopulmonary disease. Trevin De León MD Transcranial Doppler Study Complete 10/26/16 0700 Signed Impressions: Service Date/Time: Wednesday, October 26, 2016 08:20 - CONCLUSION: Minimal interval improvement with no evidence for vasospasm. Christian Song MD FACR Neck CTA 10/19/16 0000 Signed Impressions: Service Date/Time: Wednesday, October 19, 2016 14:19 - CONCLUSION: Negative for dissection or significant stenosis. Christian oSng MD FACR Head CTA 10/19/16 0000 Signed Impressions: Service Date/Time: Wednesday, October 19, 2016 14:19 - CONCLUSION: 1. Interval development of significant vasospasm in the left MCA and SRI territories. 2. Mild vasospasm in the basilar artery.. Gume Mckeon MD Cerebral Arteriogram 10/19/16 0000 Signed Impressions: Service Date/Time: Wednesday, October 19, 2016 16:06 - CONCLUSION: 1. Vasospasm in the left MCA and SRI territories 2. Spasmolytic infusion, left internal carotid artery as above.. 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 Gume Mckeon MD Pelvis X-Ray 10/05/16109 Signed Impressions: Service Date/Time: Wednesday, October 05, 2016 01:22 - CONCLUSION: Unremarkable examination of the pelvis. Ruben Acuña Jr., MD Chest CT 10/05/16109 Signed Impressions: Service Date/Time: Wednesday, October 05, 2016 01:46 - CONCLUSION: 1. No acute intrathoracic abnormality. 2. Bibasilar atelectasis. 3. Cardiomegaly. 4. Prior granulomatous disease. Ruben Acuña Jr., MD Cervical Spine CT 10/05/16109 Signed Impressions: Service Date/Time: Wednesday, October 05, 2016 01:40 - CONCLUSION: 1. No fracture or dislocation. 2. Multilevel degenerative changes. Ruben Acuña Jr., MD Abdomen/Pelvis CT 10/05/16109 Signed Impressions: Service Date/Time: Wednesday, October 05, 2016 01:46 - CONCLUSION: 1. No acute trauma. 2. Rounded area of decreased density involving the pancreatic head. I cannot completely exclude pancreatic head mass. At some point MRI of the pancreas is suggested to further evaluate. 3. Focal area of poor enhancement involving the left kidney. This may relate to an area of parenchymal scarring. I cannot completely exclude a mass. This can be further assessed with MRI as well. Ruben Acuña Jr., MD Objective Remarks GENERAL: Well-nourished, well-developed male patient, in no apparent distress sleeping in bed comfortably. Pleasantly confused, oriented x 1 to self. SKIN: No rash. Warm and dry. HEENT: Pupils equal round and reactive. Normocephalic. Extraocular motions intact. No scleral icterus. No injection or drainage. Oral mucosa moist. NECK: Trachea midline. Supple. CARDIOVASCULAR: RRR. No murmur appreciated. RESPIRATORY: Clear to auscultation. Breath sounds equal bilaterally. No wheezes , rales, or rhonchi. GASTROINTESTINAL: Abdomen soft, non-tender, nondistended. No guarding. MUSCULOSKELETAL: Extremities without clubbing, cyanosis, or edema. NEUROLOGICAL: Awake and alert. Moves all 4 extremities, equal no weakness noted. 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 ICD Code: I60.8 Status: Acute (2) Hypertension ICD Code: I10 Status: Chronic (3) Major neurocognitive disorder due to vascular disease, without behavioral disturbance, severe ICD Code: F01.50 Status: Acute (4) Septic shock ICD Code: A41.9 Status: Resolved (5) Hydrocephalus ICD Code: G91.9 Status: Acute (6) Intracranial hemorrhage ICD Code: I62.9 Status: Acute (7) Major neurocognitive disorder as late effect of traumatic brain injury with behavioral disturbance ICD Code: S06.9X9S Status: Acute (8) Encephalopathy ICD Code: G93.40 Status: Acute (9) Sepsis ICD Code: A41.9 Status: Resolved (10) Pneumonia ICD Code: J18.9 Status: Acute (11) Protein-calorie malnutrition, mild ICD Code: E44.1 Status: Acute (12) Acute respiratory failure with hypoxia and hypercarbia ICD Code: J96.01 Status: Acute Assessment and Plan Mr. Nunez is a 51 year old male who was brought to the hospital as a trauma alert due to head injury after he fell in the bathroom and hit his head. Patient was unresponsive for approximately 15 minutes by the time ambulance services arrived. His mentation waxed and waned with GCS ranging from [address] head indicated subarachnoid hemorrhage, acute. 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 Requested to have trauma to remove PEG tube. - Cont PT/OT Acute hypoxic hypercarbic respiratory failure -Tracheostomy 10/23/16, removed, old trach site open to air -Follow respiratory status Cerebral salt wasting: -Follow sodium levels, labs stable -Continue Florinef C. difficile colitis, resolved -Completed Flagyl on 10/23 -Follow for diarrhea, denies any at this time. -Cont Lactinex Hypokalemia, resolved: Follow and replace as needed. DVT prophylaxis: SCDs, YOUSIF hose, Lovenox. Ambulation. GI prophylaxis: Protonix. Discharge Planning Last CM note:Pt not a safe dc at this time. Problem Qualifiers (1) Hypertension: Qualified Code: I10 - Essential hypertension Dariela Del Cid Jan 07, 2017 10:55
[2017-01-07] MEDS: ENOXAPARIN SODIUM 40 MG/0.4 ML SYRINGE SQ SCH (21:42)
[2017-01-08 00:06] VITALS: BP 110/71; PULSE 76; RESP 18; TEMP 97.1; O2SAT 96
[2017-01-08 03:54] VITALS: BP 113/63; PULSE 70; RESP 16; TEMP 96.1; O2SAT 94
[2017-01-08] MEDS: CHLORHEXIDINE GLUCONATE 2 % 1 PACK (2 CLOTHS) TOP SCH (04:00)
[2017-01-08] MEDS: LABETALOL HCL 100 MG TAB PO SCH ×3 (04:37→20:27)
[2017-01-08] MEDS: PRAVASTATIN SOD 40 MG TAB PO SCH (08:17)
[2017-01-08] MEDS: POTASSIUM CHLORIDE 25 MEQ EFFERVESCENT TAB NG SCH ×2 (08:17→20:28)
[2017-01-08] MEDS: PANTOPRAZOLE SOD 40 MG DELAYED RELEASE TAB PO SCH (08:17)
[2017-01-08] MEDS: FLUDROCORTISONE ACETATE 0.1 MG TAB PO SCH (08:17)
[2017-01-08] MEDS: LACTOBACILLUS ACIDOPHILUS TAB PO SCH ×2 (08:17→20:27)
[2017-01-08] MEDS: QUEtiapine FUMARATE 25 MG TAB PO SCH ×3 (08:17→20:27)
[2017-01-08] MEDS: amLODIPine BESYLATE 5 MG TAB PO SCH (08:18)
[2017-01-08] MEDS: ARTIFICIAL TEARS OPTH SOLN 15 ML BTL EACH EYE SCH ×3 (08:18→18:00)
[2017-01-08] MEDS: NYSTATIN 100,000 U/GM PWD 15 GM BTL TOPICAL SCH ×3 (08:18→18:00)
[2017-01-08 08:24] VITALS: BP 119/69; PULSE 80; RESP 18; TEMP 97.2; O2SAT 96
[2017-01-08 11:59] VITALS: BP 114/76; PULSE 83; RESP 18; TEMP 97.5; O2SAT 96
--- NOTE | 2017-01-08 12:07 | HHI.PR ---
Subjective Remarks Follow-up for intracranial hemorrhage, basilar tip aneurysm. Patient seen and examined. Sitting comfortably up in chair at nurses station. Denies any new acute complaints. Oriented to self. States that year is 2004. Follows all commands. Denies any recent fever, chills, cough, shortness of breath, abdominal pain, n/v, diarrhea or dysuria. Objective Vitals Vital Signs Date Time Temp Pulse Resp B/P Pulse Ox O2 Delivery O2 Flow Rate FiO2 01/08/17 08:24 97.2 80 18 119/69 96 01/08/17 03:54 96.1 70 16 113/63 94 01/08/17 00:06 97.1 76 18 110/71 96 01/07/17 20:31 97.0 75 16 125/79 97 01/07/17 16:37 96.8 98 18 133/78 95 I/O 01/07/17 01/07/17 01/07/17 01/08/17 01/08/17 01/08/17 07:00 15:00 23:00 07:00 15:00 23:00 Intake Total 1200 ml 1250 ml 480 ml Output Total 240 ml 1600 ml Balance 960 ml -350 ml 480 ml Intake Oral 1200 ml 1250 ml 480 ml Output Urine Total 240 ml 1600 ml Stool Total 0 ml # Voids 2 1 3 1 # Bowel Movements 0 1 Result Diagram: 01/05/17 1044 01/05/17 1044 Imaging Last Impressions Head CT 12/09/16 0000 Signed Impressions: Service Date/Time: Friday, December 09, 2016 17:36 - CONCLUSION: 1. Right ventriculostomy tube remains in place with decrease in ventricular size since November 24. There is some encephalomalacia around the shunt and a probable small infarct in the left basal ganglia. No new hemorrhage or shift. Tip Harrsi MD Abdomen X-Ray 11/28/16 0000 Signed Impressions: Service Date/Time: Monday, November 28, 2016 16:00 - CONCLUSION: 1. No evidence of bowel obstruction, ileus or perforation. 2. Degenerative changes and scoliosis of the thoracolumbar spine. 3. Degenerative changes involving the hip joints bilaterally. Juan Worley MD Chest X-Ray 11/01/16 0600 Signed Impressions: Service Date/Time: Tuesday, November 01, 2016 04:37 - CONCLUSION: 1. No acute cardiopulmonary disease. Trevin De León MD Transcranial Doppler Study Complete 10/26/16 0700 Signed Impressions: Service Date/Time: Wednesday, October 26, 2016 08:20 - CONCLUSION: Minimal interval improvement with no evidence for vasospasm. Christian Song MD FACR Neck CTA 10/19/16 0000 Signed Impressions: Service Date/Time: Wednesday, October 19, 2016 14:19 - CONCLUSION: Negative for dissection or significant stenosis. Christian Song MD FACR Head CTA 10/19/16 0000 Signed Impressions: Service Date/Time: Wednesday, October 19, 2016 14:19 - CONCLUSION: 1. Interval development of significant vasospasm in the left MCA and SRI territories. 2. Mild vasospasm in the basilar artery.. Gume Mckeon MD Cerebral Arteriogram 10/19/16 0000 Signed Impressions: Service Date/Time: Wednesday, October 19, 2016 16:06 - CONCLUSION: 1. Vasospasm in the left MCA and SRI territories 2. Spasmolytic infusion, left internal carotid artery as above.. 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 Gume Mckeon MD Pelvis X-Ray 10/05/16109 Signed Impressions: Service Date/Time: Wednesday, October 05, 2016 01:22 - CONCLUSION: Unremarkable examination of the pelvis. Ruben Acuña Jr., MD Chest CT 10/05/16109 Signed Impressions: Service Date/Time: Wednesday, October 05, 2016 01:46 - CONCLUSION: 1. No acute intrathoracic abnormality. 2. Bibasilar atelectasis. 3. Cardiomegaly. 4. Prior granulomatous disease. Ruben Acuña Jr., MD Cervical Spine CT 10/05/16109 Signed Impressions: Service Date/Time: Wednesday, October 05, 2016 01:40 - CONCLUSION: 1. No fracture or dislocation. 2. Multilevel degenerative changes. Ruben Acuña Jr., MD Abdomen/Pelvis CT 10/05/16109 Signed Impressions: Service Date/Time: Wednesday, October 05, 2016 01:46 - CONCLUSION: 1. No acute trauma. 2. Rounded area of decreased density involving the pancreatic head. I cannot completely exclude pancreatic head mass. At some point MRI of the pancreas is suggested to further evaluate. 3. Focal area of poor enhancement involving the left kidney. This may relate to an area of parenchymal scarring. I cannot completely exclude a mass. This can be further assessed with MRI as well. Ruben Acuña Jr., MD Objective Remarks GENERAL: Well-nourished, well-developed male patient, in no apparent distress sleeping in bed comfortably. Pleasantly confused, oriented x 1 to self. SKIN: No rash. Warm and dry. HEENT: Pupils equal round and reactive. Normocephalic. Extraocular motions intact. No scleral icterus. No injection or drainage. Oral mucosa moist. NECK: Trachea midline. Supple. CARDIOVASCULAR: RRR. No murmur appreciated. RESPIRATORY: Clear to auscultation. Breath sounds equal bilaterally. No wheezes , rales, or rhonchi. GASTROINTESTINAL: Abdomen soft, non-tender, nondistended. No guarding. MUSCULOSKELETAL: Extremities without clubbing, cyanosis, or edema. NEUROLOGICAL: Awake and alert. Moves all 4 extremities, equal no weakness noted. 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 ICD Code: I60.8 Status: Acute (2) Hypertension ICD Code: I10 Status: Chronic (3) Major neurocognitive disorder due to vascular disease, without behavioral disturbance, severe ICD Code: F01.50 Status: Acute (4) Septic shock ICD Code: A41.9 Status: Resolved (5) Hydrocephalus ICD Code: G91.9 Status: Acute (6) Intracranial hemorrhage ICD Code: I62.9 Status: Acute (7) Major neurocognitive disorder as late effect of traumatic brain injury with behavioral disturbance ICD Code: S06.9X9S Status: Acute (8) Encephalopathy ICD Code: G93.40 Status: Acute (9) Sepsis ICD Code: A41.9 Status: Resolved (10) Pneumonia ICD Code: J18.9 Status: Acute (11) Protein-calorie malnutrition, mild ICD Code: E44.1 Status: Acute (12) Acute respiratory failure with hypoxia and hypercarbia ICD Code: J96.01 Status: Acute Assessment and Plan Mr. Nunez is a 51 year old male who was brought to the hospital as a trauma alert due to head injury after he fell in the bathroom and hit his head. Patient was unresponsive for approximately 15 minutes by the time ambulance services arrived. His mentation waxed and waned with GCS ranging from [address] head indicated subarachnoid hemorrhage, acute. 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 - PEG still in place. Will consult GI to remove. - Cont PT/OT Acute hypoxic hypercarbic respiratory failure -Tracheostomy 10/23/16, removed, old trach site open to air -Follow respiratory status Cerebral salt wasting: -Follow sodium levels, labs stable -Continue Florinef C. difficile colitis, resolved -Completed Flagyl on 10/23 -Follow for diarrhea, denies any at this time. -Cont Lactinex Hypokalemia, resolved: Follow and replace as needed. DVT prophylaxis: SCDs, YOUSIF hose, Lovenox. Ambulation. GI prophylaxis: Protonix. Discharge Planning Last CM note:Pt not a safe dc at this time. Problem Qualifiers (1) Hypertension: Qualified Code: I10 - Essential hypertension Dariela Del Cid Jan 08, 2017 12:06
[2017-01-08 15:41] VITALS: BP 116/70; PULSE 74; RESP 18; TEMP 97; O2SAT 98
[2017-01-08 20:00] VITALS: BP 130/78; PULSE 84; RESP 20; TEMP 96.6; O2SAT 97
[2017-01-08] MEDS: ACETAMINOPHEN 325 MG TAB PO PRN (20:27)
[2017-01-08] MEDS: ENOXAPARIN SODIUM 40 MG/0.4 ML SYRINGE SQ SCH (20:28)
--- NOTE | 2017-01-08 22:07 | HHI.PR ---
Subjective Subjective Notes reconsult for PEG removal, pt tolerating diet, +bms Objective Vitals/I&O Vital Signs Date Time Temp Pulse Resp B/P Pulse Ox O2 Delivery O2 Flow Rate FiO2 01/08/17 21:41 18 01/08/17 15:41 97.0 74 116/70 98 Cardiovascular: Regular Lungs: Clear Abdomen: Other (soft peg tube c/d/i) A/P Assessment and Plan 51 years old with intracranial hemorrhage, acute respiratory failure, prolonged intubation, needing feeding access, s/p PEG placement 10/24/16 PLAN PEG removed at bedside, dressing place, no complication will follow Darrin Hernandez MD Jan 08, 2017 22:07
[2017-01-09 04:00] VITALS: BP 121/72; PULSE 82; RESP 20; TEMP 96.9; O2SAT 98
[2017-01-09] MEDS: LABETALOL HCL 100 MG TAB PO SCH ×3 (04:45→21:05)
[2017-01-09 08:00] VITALS: BP 120/75; PULSE 82; RESP 20; TEMP 97.7; O2SAT 94
[2017-01-09] MEDS: PANTOPRAZOLE SOD 40 MG DELAYED RELEASE TAB PO SCH (08:48)
[2017-01-09] MEDS: PRAVASTATIN SOD 40 MG TAB PO SCH (08:48)
[2017-01-09] MEDS: LACTOBACILLUS ACIDOPHILUS TAB PO SCH ×2 (08:48→21:05)
[2017-01-09] MEDS: QUEtiapine FUMARATE 25 MG TAB PO SCH ×3 (08:48→21:06)
[2017-01-09] MEDS: amLODIPine BESYLATE 5 MG TAB PO SCH (08:48)
[2017-01-09] MEDS: FLUDROCORTISONE ACETATE 0.1 MG TAB PO SCH (08:48)
[2017-01-09] MEDS: POTASSIUM CHLORIDE 25 MEQ EFFERVESCENT TAB NG SCH ×2 (08:49→21:05)
[2017-01-09] MEDS: ARTIFICIAL TEARS OPTH SOLN 15 ML BTL EACH EYE SCH ×3 (08:51→17:26)
[2017-01-09] MEDS: NYSTATIN 100,000 U/GM PWD 15 GM BTL TOPICAL SCH ×3 (08:52→17:26)
[2017-01-09 12:00] VITALS: BP 122/76; PULSE 86; RESP 22; TEMP 97.4; O2SAT 96
--- NOTE | 2017-01-09 15:22 | HHI.PR ---
Subjective Remarks Follow-up for intracranial hemorrhage, basilar tip aneurysm. Patient seen and examined. Sitting comfortably up in chair at bedside. Denies any new acute complaints. Oriented to self. States the year is "1984 or 1985" and he is "somewhere in [place]." Stated he is to Jenny, yet noted "she is also known as Rachel." Follows all commands. Denies any recent fever, chills, cough, shortness of breath, abdominal pain, NVD When asked about his vision, pt stated "I can't see sh*t". Pt denied abdominal pain from where PEG tube was removed. Per RN (Clarisa) reported pt evidencing increased impulsiveness this morning. Otherwise, pt is without new issues or concerns from last night or since start of shift. Objective Vitals Vital Signs Date Time Temp Pulse Resp B/P Pulse Ox O2 Delivery O2 Flow Rate FiO2 01/09/17 12:00 97.4 86 22 122/76 96 01/09/17 08:00 97.7 82 20 120/75 94 01/09/17 04:00 96.9 82 20 121/72 98 01/08/17 21:41 18 01/08/17 20:00 96.6 84 20 130/78 97 01/08/17 15:41 97.0 74 18 116/70 98 I/O 01/08/17 01/08/17 01/08/17 01/09/17 01/09/17 01/09/17 07:00 15:00 23:00 07:00 15:00 23:00 Intake Total 1250 ml 480 ml 580 ml 600 ml Output Total 1600 ml 600 ml Balance -350 ml 480 ml -20 ml 600 ml Intake Oral 1250 ml 480 ml 580 ml 600 ml Output Urine Total 1600 ml 600 ml Stool Total 0 ml # Voids 3 1 2 5 # Bowel Movements 0 1 0 3 Result Diagram: 01/05/17 1044 01/05/17 1044 Imaging Last Impressions Head CT 12/09/16 0000 Signed Impressions: Service Date/Time: Friday, December 09, 2016 17:36 - CONCLUSION: 1. Right ventriculostomy tube remains in place with decrease in ventricular size since November 24. There is some encephalomalacia around the shunt and a probable small infarct in the left basal ganglia. No new hemorrhage or shift. Tip Harris MD Abdomen X-Ray 11/28/16 0000 Signed Impressions: Service Date/Time: Monday, November 28, 2016 16:00 - CONCLUSION: 1. No evidence of bowel obstruction, ileus or perforation. 2. Degenerative changes and scoliosis of the thoracolumbar spine. 3. Degenerative changes involving the hip joints bilaterally. Juan Worley MD Chest X-Ray 11/01/16 0600 Signed Impressions: Service Date/Time: Tuesday, November 01, 2016 04:37 - CONCLUSION: 1. No acute cardiopulmonary disease. Trevin De León MD Transcranial Doppler Study Complete 10/26/16 0700 Signed Impressions: Service Date/Time: Wednesday, October 26, 2016 08:20 - CONCLUSION: Minimal interval improvement with no evidence for vasospasm. Christian Song MD FACR Neck CTA 10/19/16 0000 Signed Impressions: Service Date/Time: Wednesday, October 19, 2016 14:19 - CONCLUSION: Negative for dissection or significant stenosis. Christian Song MD FACR Head CTA 10/19/16 0000 Signed Impressions: Service Date/Time: Wednesday, October 19, 2016 14:19 - CONCLUSION: 1. Interval development of significant vasospasm in the left MCA and SRI territories. 2. Mild vasospasm in the basilar artery.. Gume Mckeon MD Cerebral Arteriogram 10/19/16 0000 Signed Impressions: Service Date/Time: Wednesday, October 19, 2016 16:06 - CONCLUSION: 1. Vasospasm in the left MCA and SRI territories 2. Spasmolytic infusion, left internal carotid artery as above.. 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 Gume Mckeon MD Pelvis X-Ray 10/05/16 011 Signed Impressions: Service Date/Time: Wednesday, October 05, 2016 01:22 - CONCLUSION: Unremarkable examination of the pelvis. Ruben Acuña Jr., MD Chest CT 10/05/16 011 Signed Impressions: Service Date/Time: Wednesday, October 05, 2016 01:46 - CONCLUSION: 1. No acute intrathoracic abnormality. 2. Bibasilar atelectasis. 3. Cardiomegaly. 4. Prior granulomatous disease. Ruben Acuña Jr., MD Cervical Spine CT 10/05/16109 Signed Impressions: Service Date/Time: Wednesday, October 05, 2016 01:40 - CONCLUSION: 1. No fracture or dislocation. 2. Multilevel degenerative changes. Ruben Acuña Jr., MD Abdomen/Pelvis CT 10/05/16109 Signed Impressions: Service Date/Time: Wednesday, October 05, 2016 01:46 - CONCLUSION: 1. No acute trauma. 2. Rounded area of decreased density involving the pancreatic head. I cannot completely exclude pancreatic head mass. At some point MRI of the pancreas is suggested to further evaluate. 3. Focal area of poor enhancement involving the left kidney. This may relate to an area of parenchymal scarring. I cannot completely exclude a mass. This can be further assessed with MRI as well. Ruben Acuña Jr., MD Objective Remarks GENERAL: Pt encountered sitting in bedside chair, awake and alert. breakfast tray was at his bedside. SKIN: Warm and dry. Hands evidenced syrup from his recently eaten breakfast. HEAD: Normocephalic. EYES: No scleral icterus. No injection or drainage. NECK: Supple, trachea midline. No lymphadenopathy. Site of recent T-Tube healing. CARDIOVASCULAR: Regular rate and rhythm without murmurs, gallops, or rubs. RESPIRATORY: Breath sounds equal bilaterally. No accessory muscle use. GASTROINTESTINAL: Abdomen soft, non-tender, nondistended. MUSCULOSKELETAL: No cyanosis, or edema. PSYCHIATRIC: Pt alert and oriented to self. He did not evidence overt signs of anxiety or depression. Pt is pleasant and cooperative. Procedures 10/05/16 right frontal twist drill for ventriculostomy placement 10/20/16 arterial line placement 10/23/16 bedside percutaneous tracheostomy under direct bronchoscopic visualization 10/24/16 PEG tube placement at bedside Urinary Catheter: No A/P Problem List: (1) 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 ICD Code: I60.8 Status: Acute (2) Hypertension ICD Code: I10 Status: Chronic (3) Major neurocognitive disorder due to vascular disease, without behavioral disturbance, severe ICD Code: F01.50 Status: Acute (4) Septic shock ICD Code: A41.9 Status: Resolved (5) Hydrocephalus ICD Code: G91.9 Status: Acute (6) Intracranial hemorrhage ICD Code: I62.9 Status: Acute (7) Major neurocognitive disorder as late effect of traumatic brain injury with behavioral disturbance ICD Code: S06.9X9S Status: Acute (8) Encephalopathy ICD Code: G93.40 Status: Acute (9) Sepsis ICD Code: A41.9 Status: Resolved (10) Pneumonia ICD Code: J18.9 Status: Acute (11) Protein-calorie malnutrition, mild ICD Code: E44.1 Status: Acute (12) Acute respiratory failure with hypoxia and hypercarbia ICD Code: J96.01 Status: Acute Assessment and Plan 51-year-old male status post aneurysm related acute intracranial hemorrhage. 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 -Cont PT/OT -Hematology inquiring about CSF samples. While ordered, samples not available at this time. Order cancelled at direction of Dr. James. -Noted that speech and language pathologist has signed off on 12/27/16 as pt has hit a cognitive plateau. -Discussed with Dr. Cortes removal of PEG tube as pt has not been using it for some time. He requested the team that placed it be contacted and asked to remove it.pt is eating without difficulty. Will request RN to contact Dr. Prater. - Dr. Prater removed PEG tube on 01/08/17. Acute hypoxic hypercarbic respiratory failure -Tracheostomy 10/23/16, removed, old trach site open to air -Follow respiratory status Cerebral salt wasting: -Follow sodium levels, labs stable -Continue Florinef -By mouth sodium tablets C. difficile colitis, resolved -Completed Flagyl on 10/23 -Follow for diarrhea -Cont Lactinex Hyperglycemia, resolve -Follow blood sugars Hypokalemia, 3.4 12/12. 3.2 12/13, 3.3 12/14, 5.2 12/15, 3.3 12/16, 3.2 12/17, 3.2 -Increased supplement to 50meq eff BID, labs in am -Follow and replace as needed -Elevation of 12/15 related to hemolysis of sample. Results of 12/16 indicated pt is again hypokalemic. Resume potassium administration. DVT prophylaxis: SCDs, YOUSIF hose, Lovenox. GI prophylaxis: Protonix. Case discussed with pt, RN (Clarisa), ЕКАТЕРИНА Lyle, and Dr. Gibbs. Discharge Planning Discharge planning ongoing. Issues seem to be related to finding an accepting facility as well as payor source. It was noted pt may be discharged to home, CM continues to address this possibility. Pt's is pursuing guardianship of pt, based on documents she is requesting to be completed. Problem Qualifiers (1) Hypertension: Qualified Code: I10 - Essential hypertension Manolo Alvarez Jr. Jan 09, 2017 15:22
[2017-01-09 16:00] VITALS: BP 130/78; PULSE 77; RESP 20; TEMP 96.9; O2SAT 94
[2017-01-09 20:00] VITALS: BP 125/71; PULSE 74; RESP 18; TEMP 97.4; O2SAT 95
[2017-01-09] MEDS: ENOXAPARIN SODIUM 40 MG/0.4 ML SYRINGE SQ SCH (21:05)
[2017-01-10] VITALS (7 sets, daily range): BP systolic 100–131; BP diastolic 56–83; PULSE 71–98; RESP 17–20; TEMP 96.4–98; O2SAT 93–97
[2017-01-10] MEDS: LABETALOL HCL 100 MG TAB PO SCH ×3 (04:42→21:38)
[2017-01-10] MEDS: ARTIFICIAL TEARS OPTH SOLN 15 ML BTL EACH EYE SCH ×3 (08:47→17:33)
[2017-01-10] MEDS: FLUDROCORTISONE ACETATE 0.1 MG TAB PO SCH (08:48)
[2017-01-10] MEDS: QUEtiapine FUMARATE 25 MG TAB PO SCH ×3 (08:48→21:39)
[2017-01-10] MEDS: PANTOPRAZOLE SOD 40 MG DELAYED RELEASE TAB PO SCH (08:48)
[2017-01-10] MEDS: amLODIPine BESYLATE 5 MG TAB PO SCH (08:49)
[2017-01-10] MEDS: LACTOBACILLUS ACIDOPHILUS TAB PO SCH ×2 (08:49→21:38)
[2017-01-10] MEDS: NYSTATIN 100,000 U/GM PWD 15 GM BTL TOPICAL SCH ×3 (08:49→17:33)
[2017-01-10] MEDS: PRAVASTATIN SOD 40 MG TAB PO SCH (08:49)
[2017-01-10] MEDS: POTASSIUM CHLORIDE 25 MEQ EFFERVESCENT TAB NG SCH ×2 (09:21→21:38)
--- NOTE | 2017-01-10 14:56 | HHI.PR ---
Subjective Remarks Follow-up for intracranial hemorrhage, basilar tip aneurysm. Patient seen and examined. Sitting comfortably up in chair at nurse's station. Denies any new acute complaints. Oriented to self. States the year is "1913 or 1914" and he is "[place], [place]." Pt reported he did not sleep well last evening as there wa a "ruckus here." Pt stated he was "brought to this place last night by EMS." Denies any recent fever, chills, cough, shortness of breath, abdominal pain, NVD Pt stated he still has visual impairment. However, he was able to see the breakfast tray that was brought to him this morning and could identify the three food items on his plate. He described his vision at that time as being "blurry." Pt denied fever, cough, shortness of breath, NVD, bloody urine or stool. Per HAND SPRING REPAIRER (Dariela) pt is "less impulsive this morning" and is following directions. Per RN (Clarisa) reported pt evidencing increased impulsiveness this morning. Otherwise, pt is without new issues or concerns from last night or since start of shift. Objective Vitals Vital Signs Date Time Temp Pulse Resp B/P Pulse Ox O2 Delivery O2 Flow Rate FiO2 01/10/17 12:30 96.4 76 20 113/73 94 01/10/17 08:00 97.4 71 20 127/83 95 01/10/17 06:49 97.0 74 20 109/67 95 01/10/17 00:00 98.0 83 20 100/56 93 01/09/17 20:00 97.4 74 18 125/71 95 01/09/17 16:00 96.9 77 20 130/78 94 I/O 01/09/17 01/09/17 01/09/17 01/10/17 01/10/17 01/10/17 07:00 15:00 23:00 07:00 15:00 23:00 Intake Total 600 ml 480 ml Balance 600 ml 480 ml Intake Oral 600 ml 480 ml # Voids 5 1 2 # Bowel Movements 3 1 0 Objective Remarks GENERAL: Pt encountered sitting in chair at nurses station, awake and alert. Breakfast tray was brought to station while pt was being interviewed; pt could readily identify it and food items. SKIN: Warm and dry. HEAD: Normocephalic. EYES: No scleral icterus. No injection or drainage. NECK: Supple, trachea midline. No lymphadenopathy. Site of recent T-Tube healing. CARDIOVASCULAR: Regular rate and rhythm without murmurs, gallops, or rubs. RESPIRATORY: Breath sounds equal bilaterally. No accessory muscle use. GASTROINTESTINAL: Abdomen soft, non-tender, nondistended. MUSCULOSKELETAL: No cyanosis, or edema. PSYCHIATRIC: Pt alert and oriented to self only. He did not evidence overt signs of anxiety or depression. Pt is pleasant and cooperative. Procedures 10/05/16 right frontal twist drill for ventriculostomy placement 10/20/16 arterial line placement 10/23/16 bedside percutaneous tracheostomy under direct bronchoscopic visualization 10/24/16 PEG tube placement at bedside Medications and IVs Current Medications Medications (Trade) Dose Ordered Sig/Nava Route Start Time Stop Time Status Last Admin (Tylenol) 650 mg Q6H PRN PO 10/05/16 02:45 01/08/17 20:27 (Tears Naturale Opth Soln) 1 drop TID EACH EYE 10/05/16 09:00 01/10/17 13:49 (Zofran Inj) 4 mg Q6H PRN IV 10/05/16 02:45 11/27/16 23:26 Miscellaneous Information 1 Q361D XX 10/05/16 02:45 10/05/16 02:45 (Chlorhexidine 2% Cloth) 3 pack Taper DAILY@04 TOP 10/05/16 04:00 10/01/17 03:59 01/02/17 04:00 (Chlorhexidine 2% Cloth) 3 pack UNSCH PRN TOP 10/05/16 02:45 (Pravachol) 40 mg DAILY PO 10/05/16 09:00 01/10/17 08:49 (Lovenox Inj) 40 mg Q24H SQ 10/23/16 21:00 01/09/17 21:05 (Trandate) 100 mg Q8H PO 11/03/16 20:00 01/10/17 13:49 (Norvasc) 5 mg DAILY PO 11/04/16 09:00 01/10/17 08:49 (Mycostatin Powder) 1 applic TID TOPICAL 11/06/16 09:00 01/10/17 13:49 (Lactinex) 1 tab Q12HR PO 11/06/16 21:00 01/10/17 08:49 (SEROquel) 25 mg BID@09,12 PO 11/07/16 09:00 01/10/17 13:49 (Colace Liq) 100 mg Q12H PRN G-TUBE 11/06/16 17:00 12/11/16 21:59 (Imodium) 2 mg UNSCH PRN PO 11/09/16 09:45 11/29/16 12:57 (Lomotil Tab) 1 tab Q6H PRN PO 11/09/16 09:45 (SEROquel) 25 mg HS PO 11/20/16 21:00 01/09/17 21:06 (Lactulose Liq) 30 ml QID PRN PO 12/09/16 13:45 (K-Lyte Cl Eff) 50 meq Q12HR NG 12/13/16 09:00 01/10/17 09:21 (Protonix) 40 mg DAILY PO 12/16/16 09:00 01/10/17 08:48 (Florinef) 0.2 mg DAILY PO 12/20/16 09:00 01/10/17 08:48 (Benadryl) 50 mg Q6H PRN PO 12/20/16 17:45 01/04/17 20:49 Urinary Catheter: No A/P Problem List: (1) 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 ICD Code: I60.8 Status: Acute (2) Hypertension ICD Code: I10 Status: Chronic (3) Major neurocognitive disorder due to vascular disease, without behavioral disturbance, severe ICD Code: F01.50 Status: Acute (4) Septic shock ICD Code: A41.9 Status: Resolved (5) Hydrocephalus ICD Code: G91.9 Status: Acute (6) Intracranial hemorrhage ICD Code: I62.9 Status: Acute (7) Major neurocognitive disorder as late effect of traumatic brain injury with behavioral disturbance ICD Code: S06.9X9S Status: Acute (8) Encephalopathy ICD Code: G93.40 Status: Acute (9) Sepsis ICD Code: A41.9 Status: Resolved (10) Pneumonia ICD Code: J18.9 Status: Acute (11) Protein-calorie malnutrition, mild ICD Code: E44.1 Status: Acute (12) Acute respiratory failure with hypoxia and hypercarbia ICD Code: J96.01 Status: Acute Assessment and Plan 51-year-old male status post aneurysm related acute intracranial hemorrhage. 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 -Cont PT/OT -Hematology inquiring about CSF samples. While ordered, samples not available at this time. Order cancelled at direction of Dr. James. -Noted that speech and language pathologist has signed off on 12/27/16 as pt has hit a cognitive plateau. -Discussed with Dr. Cortes removal of PEG tube as pt has not been using it for some time. He requested the team that placed it be contacted and asked to remove it.pt is eating without difficulty. Will request RN to contact Dr. Prater. - Dr. Prater removed PEG tube on 01/08/17. Acute hypoxic hypercarbic respiratory failure -Tracheostomy 10/23/16, removed, old trach site open to air -Follow respiratory status Cerebral salt wasting: -Follow sodium levels, labs stable -Continue Florinef -By mouth sodium tablets C. difficile colitis, resolved -Completed Flagyl on 10/23 -Follow for diarrhea -Cont Lactinex Hyperglycemia, resolve -Follow blood sugars Hypokalemia, 3.4 12/12. 3.2 12/13, 3.3 12/14, 5.2 12/15, 3.3 12/16, 3.2 12/17, 3.2 -Increased supplement to 50meq eff BID, labs in am -Follow and replace as needed -Elevation of 12/15 related to hemolysis of sample. Results of 12/16 indicated pt is again hypokalemic. Resume potassium administration. DVT prophylaxis: SCDs, YOUSIF hose, Lovenox. GI prophylaxis: Protonix. Case discussed with pt, RN (Ana), ЕКАТЕРИНА Lyle, and Dr. Gibbs. Discharge Planning Discharge planning ongoing. Issues seem to be related to finding an accepting facility as well as payor source. It was noted pt may be discharged to home, CM continues to address this possibility. Pt's is pursuing guardianship of pt, based on documents she is requesting to be completed. Pt's safety is also in question due to his cognitive status. Problem Qualifiers (1) Hypertension: Qualified Code: I10 - Essential hypertension Manolo Alvarez Jr. Jan 10, 2017 14:56
[2017-01-10] MEDS: ENOXAPARIN SODIUM 40 MG/0.4 ML SYRINGE SQ SCH (21:39)
[2017-01-11] MEDS: LABETALOL HCL 100 MG TAB PO SCH ×3 (04:54→21:11)
[2017-01-11 06:43] VITALS: BP 120/74; PULSE 75; RESP 18; TEMP 97.6; O2SAT 94
[2017-01-11] MEDS: FLUDROCORTISONE ACETATE 0.1 MG TAB PO SCH (09:12)
[2017-01-11] MEDS: QUEtiapine FUMARATE 25 MG TAB PO SCH ×3 (09:12→21:10)
[2017-01-11] MEDS: LACTOBACILLUS ACIDOPHILUS TAB PO SCH ×2 (09:12→21:10)
[2017-01-11] MEDS: POTASSIUM CHLORIDE 25 MEQ EFFERVESCENT TAB NG SCH ×2 (09:12→21:11)
[2017-01-11] MEDS: PRAVASTATIN SOD 40 MG TAB PO SCH (09:12)
[2017-01-11] MEDS: amLODIPine BESYLATE 5 MG TAB PO SCH (09:12)
[2017-01-11] MEDS: PANTOPRAZOLE SOD 40 MG DELAYED RELEASE TAB PO SCH (09:12)
[2017-01-11] MEDS: ARTIFICIAL TEARS OPTH SOLN 15 ML BTL EACH EYE SCH ×3 (09:14→17:06)
[2017-01-11] MEDS: NYSTATIN 100,000 U/GM PWD 15 GM BTL TOPICAL SCH ×3 (09:15→17:06)
[2017-01-11 12:27] VITALS: BP 127/79; PULSE 88; RESP 16; TEMP 96.8; O2SAT 94
--- NOTE | 2017-01-11 14:34 | HHI.PR ---
Subjective Remarks Follow-up for intracranial hemorrhage, basilar tip aneurysm. Patient seen and examined. Sitting comfortably up in chair at nurse's station. Denies any new acute complaints. Oriented to self. States he does not know what year it is, he is in "[place], [place]", and he is "35 years old." Pt reported he did not sleep well last evening as he was "kept awake by kittens. " Denies any recent fever, chills, cough, shortness of breath, abdominal pain, NVD Pt stated he still has visual impairment. Pt denied fever, cough, shortness of breath, NVD, bloody urine or stool. Per RN (Ana) reported pt evidencing decreased impulsiveness this morning. Pt is without new issues or concerns from last night or since start of shift. Objective Vitals Vital Signs Date Time Temp Pulse Resp B/P Pulse Ox O2 Delivery O2 Flow Rate FiO2 01/11/17 12:27 96.8 88 16 127/79 94 01/11/17 06:43 97.6 75 18 120/74 94 01/10/17 22:57 97.7 97 17 120/78 96 01/10/17 20:00 97.1 98 17 131/83 97 01/10/17 16:00 97.7 89 20 119/80 97 I/O 01/10/17 01/10/17 01/10/17 01/11/17 01/11/17 01/11/17 07:00 15:00 23:00 07:00 15:00 23:00 Intake Total 950 ml 950 ml Balance 950 ml 950 ml Intake Oral 950 ml 950 ml # Voids 7 4 2 # Bowel Movements 0 0 Objective Remarks GENERAL: Pt encountered sitting in chair at nurses station, awake and alert. Pt eating breakfast at nurse's station. SKIN: Warm and dry. HEAD: Normocephalic. EYES: No scleral icterus. No injection or drainage. NECK: Supple, trachea midline. No lymphadenopathy. CARDIOVASCULAR: Regular rate and rhythm without murmurs, gallops, or rubs. RESPIRATORY: Breath sounds equal bilaterally. No accessory muscle use. GASTROINTESTINAL: Abdomen soft, non-tender, nondistended. MUSCULOSKELETAL: No cyanosis, or edema. PSYCHIATRIC: Pt alert and oriented to self only. He did not evidence overt signs of anxiety or depression. Pt is pleasant and cooperative. Procedures 10/05/16 right frontal twist drill for ventriculostomy placement 10/20/16 arterial line placement 10/23/16 bedside percutaneous tracheostomy under direct bronchoscopic visualization 10/24/16 PEG tube placement at bedside Medications and IVs Current Medications Medications (Trade) Dose Ordered Sig/Nava Route Start Time Stop Time Status Last Admin (Tylenol) 650 mg Q6H PRN PO 10/05/16 02:45 01/08/17 20:27 (Tears Naturale Opth Soln) 1 drop TID EACH EYE 10/05/16 09:00 01/11/17 12:47 (Zofran Inj) 4 mg Q6H PRN IV 10/05/16 02:45 11/27/16 23:26 Miscellaneous Information 1 Q361D XX 10/05/16 02:45 10/05/16 02:45 (Chlorhexidine 2% Cloth) 3 pack Taper DAILY@04 TOP 10/05/16 04:00 10/01/17 03:59 01/02/17 04:00 (Chlorhexidine 2% Cloth) 3 pack UNSCH PRN TOP 10/05/16 02:45 (Pravachol) 40 mg DAILY PO 10/05/16 09:00 01/11/17 09:12 (Lovenox Inj) 40 mg Q24H SQ 10/23/16 21:00 01/10/17 21:39 (Trandate) 100 mg Q8H PO 11/03/16 20:00 01/11/17 12:47 (Norvasc) 5 mg DAILY PO 11/04/16 09:00 01/11/17 09:12 (Mycostatin Powder) 1 applic TID TOPICAL 11/06/16 09:00 01/11/17 12:47 (Lactinex) 1 tab Q12HR PO 11/06/16 21:00 01/11/17 09:12 (SEROquel) 25 mg BID@09,12 PO 11/07/16 09:00 01/11/17 12:47 (Colace Liq) 100 mg Q12H PRN G-TUBE 11/06/16 17:00 12/11/16 21:59 (Imodium) 2 mg UNSCH PRN PO 11/09/16 09:45 11/29/16 12:57 (Lomotil Tab) 1 tab Q6H PRN PO 11/09/16 09:45 (SEROquel) 25 mg HS PO 11/20/16 21:00 01/10/17 21:39 (Lactulose Liq) 30 ml QID PRN PO 12/09/16 13:45 (K-Lyte Cl Eff) 50 meq Q12HR NG 12/13/16 09:00 01/11/17 09:12 (Protonix) 40 mg DAILY PO 12/16/16 09:00 01/11/17 09:12 (Florinef) 0.2 mg DAILY PO 12/20/16 09:00 01/11/17 09:12 (Benadryl) 50 mg Q6H PRN PO 12/20/16 17:45 01/04/17 20:49 Urinary Catheter: No A/P Problem List: (1) 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 ICD Code: I60.8 Status: Acute (2) Hypertension ICD Code: I10 Status: Chronic (3) Major neurocognitive disorder due to vascular disease, without behavioral disturbance, severe ICD Code: F01.50 Status: Acute (4) Septic shock ICD Code: A41.9 Status: Resolved (5) Hydrocephalus ICD Code: G91.9 Status: Acute (6) Intracranial hemorrhage ICD Code: I62.9 Status: Acute (7) Major neurocognitive disorder as late effect of traumatic brain injury with behavioral disturbance ICD Code: S06.9X9S Status: Acute (8) Encephalopathy ICD Code: G93.40 Status: Acute (9) Sepsis ICD Code: A41.9 Status: Resolved (10) Pneumonia ICD Code: J18.9 Status: Acute (11) Protein-calorie malnutrition, mild ICD Code: E44.1 Status: Acute (12) Acute respiratory failure with hypoxia and hypercarbia ICD Code: J96.01 Status: Acute Assessment and Plan 51-year-old male status post aneurysm related acute intracranial hemorrhage. Intracranial hemorrhage, Status post basilar artery coiling 10/05, Status post [employer] shunt on 11/24/2016 Chronic encephalopathy Hydrocephalus, Slow improvement -Cont Keppra -Followed by neurology -Speech therapy recommends regular diet with thin liquids, Patient is eating well, D/c TF. -Cont PT/OT -Hematology inquiring about CSF samples. While ordered, samples not available at this time. Order cancelled at direction of Dr. James. -Noted that speech and language pathologist has signed off on 12/27/16 as pt has hit a cognitive plateau. -Discussed with Dr. Cortes removal of PEG tube as pt has not been using it for some time. He requested the team that placed it be contacted and asked to remove it.pt is eating without difficulty. Will request RN to contact Dr. Prater. - Dr. Prater removed PEG tube on 01/08/17. -Requesting neuropsychiatric evaluation in order to determine pt's strengths , deficits, insight. results to be used to assist with discharge planning to safe environment/setting. Acute hypoxic hypercarbic respiratory failure -Tracheostomy 10/23/16, removed, old trach site open to air -Follow respiratory status Cerebral salt wasting: -Follow sodium levels, labs stable -Continue Florinef -By mouth sodium tablets C. difficile colitis, resolved -Completed Flagyl on 10/23 -Follow for diarrhea -Cont Lactinex Hyperglycemia, resolve -Follow blood sugars Hypokalemia, 3.4 12/12. 3.2 12/13, 3.3 12/14, 5.2 12/15, 3.3 12/16, 3.2 12/17, 3.2 -Increased supplement to 50meq eff BID, labs in am -Follow and replace as needed -Elevation of 12/15 related to hemolysis of sample. Results of 12/16 indicated pt is again hypokalemic. Resume potassium administration. DVT prophylaxis: SCDs, YOUSIF hose, Lovenox. GI prophylaxis: Protonix. Case discussed with pt, RN (Ana), and Dr. James. Discharge Planning Discharge planning ongoing. Issues seem to be related to finding an accepting facility as well as payor source. It was noted pt may be discharged to home, CM continues to address this possibility. Pt's is pursuing guardianship of pt, based on documents she is requesting to be completed. Pt's safety is also in question due to his cognitive status. Neuropsychological testing requested to address these issues. Problem Qualifiers (1) Hypertension: Qualified Code: I10 - Essential hypertension Manolo Alvarez Jr. Jan 11, 2017 14:34
--- NOTE | 2017-01-11 15:56 | HHI.PR ---
Progress Notes/Response to Tx Premorbid psychological status Premorbid Cognitive, Emotional and Behavioral Status: Unable to Assess. The patient past history is unknown as there has been no family present. Behavioral Reactions of Patient and Family/Support System: Unable to Assess. The patients family is not present. Emotional/Behavioral Status of Patient and Family/Support System: Unable to Assess. Pertinent issues, if appropriate to this patients clinical care, are described in detail above. Maximizing acute care outcome It is recommended that the patient be monitored for emergent behavioral impulsivity as the medical condition evolves. This patients neuropathological challenges may limit their rehabilitation potential going forward, and these challenges will require specialized therapeutic skills to maximize outcome. Anticipated Problems Ongoing areas of concern will include behavioral impulsivity, lack of insight and judgment, which is expected to improve with time and treatment. Treatment Plan This clinician will continue to follow with you throughout the course of this patients acute care stay, and I will be available to meet with the patients family/support system to facilitate their understanding and the ongoing care of their family member. The goals of neuropsychological intervention shall be both educational and supportive to the family/support system as is deemed clinically appropriate. Diagnosis: (1) Major neurocognitive disorder due to vascular disease, without behavioral disturbance, severe Status: Acute Progress Note Narrative Performed outside normal limits during neuropsychological testing. He is a poor historian and reports it is 1989 and he is in "[facility]." He is pleasant , verbal, and engaged. Mood is stable. Vane Van PhD Jan 11, 2017 15:56
[2017-01-11 16:22] VITALS: BP 125/81; PULSE 89; RESP 16; TEMP 96.8; O2SAT 98
[2017-01-11 20:15] VITALS: BP 124/82; PULSE 83; RESP 18; TEMP 97.8; O2SAT 96
[2017-01-11] MEDS: ENOXAPARIN SODIUM 40 MG/0.4 ML SYRINGE SQ SCH (21:10)
[2017-01-12 00:15] VITALS: BP 118/80; PULSE 64; RESP 17; TEMP 98.1; O2SAT 96
[2017-01-12] MEDS: LABETALOL HCL 100 MG TAB PO SCH ×3 (04:11→20:40)
[2017-01-12 04:30] VITALS: BP 128/64; PULSE 67; RESP 19; TEMP 97.9; O2SAT 97
[2017-01-12 08:32] VITALS: BP 125/73; PULSE 71; RESP 16; TEMP 96.7; O2SAT 95
[2017-01-12] MEDS: PANTOPRAZOLE SOD 40 MG DELAYED RELEASE TAB PO SCH (08:41)
[2017-01-12] MEDS: LACTOBACILLUS ACIDOPHILUS TAB PO SCH ×2 (08:41→20:40)
[2017-01-12] MEDS: amLODIPine BESYLATE 5 MG TAB PO SCH (08:41)
[2017-01-12] MEDS: POTASSIUM CHLORIDE 25 MEQ EFFERVESCENT TAB NG SCH ×2 (08:41→20:41)
[2017-01-12] MEDS: PRAVASTATIN SOD 40 MG TAB PO SCH (08:41)
[2017-01-12] MEDS: QUEtiapine FUMARATE 25 MG TAB PO SCH ×3 (08:42→20:40)
[2017-01-12] MEDS: ARTIFICIAL TEARS OPTH SOLN 15 ML BTL EACH EYE SCH ×3 (08:43→17:04)
[2017-01-12] MEDS: FLUDROCORTISONE ACETATE 0.1 MG TAB PO SCH (08:43)
[2017-01-12] MEDS: NYSTATIN 100,000 U/GM PWD 15 GM BTL TOPICAL SCH ×3 (08:44→17:01)
[2017-01-12 12:25] VITALS: BP 113/78; PULSE 84; RESP 18; TEMP 97.1; O2SAT 94
[2017-01-12 12:40] LABS: HEMATOCRIT 39.5 % (39.0-51.0); HEMOGLOBIN 12.6 GM/DL (13.0-17.0); MEAN CELL VOLUME 87.9 FL (80.0-100.0); MEAN CORPUSCULAR HGB CONC 31.8 % (32.0-36.0); MEAN PLATELET VOLUME 9.6 FL (7.0-11.0); PLATELET COUNT 200 TH/MM3 (150-450); WHITE BLOOD COUNT 6.2 TH/MM3 (4.0-11.0)
[2017-01-12 14:15] LABS: BICARBONATE 27.6 MEQ/L (21.0-32.0); CALCIUM 9.3 MG/DL (8.5-10.1); CREATININE 1.05 MG/DL (0.60-1.30)
--- NOTE | 2017-01-12 14:55 | HHI.PR ---
Subjective Remarks Follow-up for intracranial hemorrhage, basilar tip aneurysm. Patient seen and examined. Laying a bed, awake. Reported back pain caused by "little blue man." Oriented to self. States he does not know what year it is, he is in "[place], [place]", and he is "30 years old." Pt reported he did not sleep well last evening as he was "kept awake by some people." Denies any recent fever, chills, cough, shortness of breath, abdominal pain, NVD , bloody urine or stool Pt stated he still has visual impairment. Per RN (Gabriella) reported pt is without new issues or concerns from last night or since start of shift. Objective Vitals Vital Signs Date Time Temp Pulse Resp B/P Pulse Ox O2 Delivery O2 Flow Rate FiO2 01/12/17 12:25 97.1 84 18 113/78 94 01/12/17 08:32 96.7 71 16 125/73 95 01/12/17 04:30 97.9 67 19 128/64 97 01/12/17 00:15 98.1 64 17 118/80 96 01/11/17 20:15 97.8 83 18 124/82 96 01/11/17 16:22 96.8 89 16 125/81 98 I/O 01/11/17 01/11/17 01/11/17 01/12/17 01/12/17 01/12/17 07:00 15:00 23:00 07:00 15:00 23:00 Intake Total 1080 ml 650 ml Output Total 650 ml Balance 1080 ml 0 ml Intake Oral 1080 ml 650 ml Output Urine Total 650 ml # Voids 2 7 4 2 # Bowel Movements 2 1 Result Diagram: 01/12/17 1135 01/12/17 1135 Objective Remarks GENERAL: Pt encountered laying a bed, awake and alert. SKIN: Warm and dry. HEAD: Normocephalic. EYES: No scleral icterus. No injection or drainage. NECK: Supple, trachea midline. No lymphadenopathy. CARDIOVASCULAR: Regular rate and rhythm without murmurs, gallops, or rubs. RESPIRATORY: Breath sounds equal bilaterally. No accessory muscle use. GASTROINTESTINAL: Abdomen soft, non-tender, nondistended. MUSCULOSKELETAL: No cyanosis, or edema. PSYCHIATRIC: Pt alert and oriented to self only. Continues to not accurately report location or year. He did not evidence overt signs of anxiety or depression. Pt is pleasant and cooperative. Procedures 10/05/16 right frontal twist drill for ventriculostomy placement 10/20/16 arterial line placement 10/23/16 bedside percutaneous tracheostomy under direct bronchoscopic visualization 10/24/16 PEG tube placement at bedside Medications and IVs Current Medications Medications (Trade) Dose Ordered Sig/Nava Route Start Time Stop Time Status Last Admin (Tylenol) 650 mg Q6H PRN PO 10/05/16 02:45 01/08/17 20:27 (Tears Naturale Opth Soln) 1 drop TID EACH EYE 10/05/16 09:00 01/12/17 11:56 (Zofran Inj) 4 mg Q6H PRN IV 10/05/16 02:45 11/27/16 23:26 Miscellaneous Information 1 Q361D XX 10/05/16 02:45 10/05/16 02:45 (Chlorhexidine 2% Cloth) 3 pack Taper DAILY@04 TOP 10/05/16 04:00 10/01/17 03:59 01/02/17 04:00 (Chlorhexidine 2% Cloth) 3 pack UNSCH PRN TOP 10/05/16 02:45 (Pravachol) 40 mg DAILY PO 10/05/16 09:00 01/12/17 08:41 (Lovenox Inj) 40 mg Q24H SQ 10/23/16 21:00 01/11/17 21:10 (Trandate) 100 mg Q8H PO 11/03/16 20:00 01/12/17 11:55 (Norvasc) 5 mg DAILY PO 11/04/16 09:00 01/12/17 08:41 (Mycostatin Powder) 1 applic TID TOPICAL 11/06/16 09:00 01/12/17 11:56 (Lactinex) 1 tab Q12HR PO 11/06/16 21:00 01/12/17 08:41 (SEROquel) 25 mg BID@09,12 PO 11/07/16 09:00 01/12/17 11:56 (Colace Liq) 100 mg Q12H PRN G-TUBE 11/06/16 17:00 12/11/16 21:59 (Imodium) 2 mg UNSCH PRN PO 11/09/16 09:45 11/29/16 12:57 (Lomotil Tab) 1 tab Q6H PRN PO 11/09/16 09:45 (SEROquel) 25 mg HS PO 11/20/16 21:00 01/11/17 21:10 (Lactulose Liq) 30 ml QID PRN PO 12/09/16 13:45 (K-Lyte Cl Eff) 50 meq Q12HR NG 12/13/16 09:00 01/12/17 08:41 (Protonix) 40 mg DAILY PO 12/16/16 09:00 01/12/17 08:41 (Florinef) 0.2 mg DAILY PO 12/20/16 09:00 01/12/17 08:43 (Benadryl) 50 mg Q6H PRN PO 12/20/16 17:45 01/04/17 20:49 Urinary Catheter: No A/P Problem List: (1) 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 ICD Code: I60.8 Status: Acute (2) Hypertension ICD Code: I10 Status: Chronic (3) Major neurocognitive disorder due to vascular disease, without behavioral disturbance, severe ICD Code: F01.50 Status: Acute (4) Septic shock ICD Code: A41.9 Status: Resolved (5) Hydrocephalus ICD Code: G91.9 Status: Acute (6) Intracranial hemorrhage ICD Code: I62.9 Status: Acute (7) Major neurocognitive disorder as late effect of traumatic brain injury with behavioral disturbance ICD Code: S06.9X9S Status: Acute (8) Encephalopathy ICD Code: G93.40 Status: Acute (9) Sepsis ICD Code: A41.9 Status: Resolved (10) Pneumonia ICD Code: J18.9 Status: Acute (11) Protein-calorie malnutrition, mild ICD Code: E44.1 Status: Acute (12) Acute respiratory failure with hypoxia and hypercarbia ICD Code: J96.01 Status: Acute Assessment and Plan 51-year-old male status post aneurysm related acute intracranial hemorrhage. Intracranial hemorrhage, Status post basilar artery coiling 10/05, Status post [employer] shunt on 11/24/2016 Chronic encephalopathy Hydrocephalus, Slow improvement -Cont Keppra -Followed by neurology -Speech therapy recommends regular diet with thin liquids, Patient is eating well, D/c TF. -Cont PT/OT -Hematology inquiring about CSF samples. While ordered, samples not available at this time. Order cancelled at direction of Dr. James. -Noted that speech and language pathologist has signed off on 12/27/16 as pt has hit a cognitive plateau. -Discussed with Dr. Cortes removal of PEG tube as pt has not been using it for some time. He requested the team that placed it be contacted and asked to remove it.pt is eating without difficulty. Will request RN to contact Dr. Prater. - Dr. Prater removed PEG tube on 01/08/17. -Requesting neuropsychiatric evaluation in order to determine pt's strengths , deficits, insight. results to be used to assist with discharge planning to safe environment/setting. -Neuropsychology saw pt on 01/11/17; awaiting report and recommendations. Acute hypoxic hypercarbic respiratory failure -Tracheostomy 10/23/16, removed, old trach site open to air -Follow respiratory status Cerebral salt wasting: -Follow sodium levels, labs stable -Continue Florinef -By mouth sodium tablets C. difficile colitis, resolved -Completed Flagyl on 10/23 -Follow for diarrhea -Cont Lactinex Hyperglycemia, resolve Normocytic anemia -Follow blood sugars -Anemia resolving as noted with HCT WNL and improved HGB level. Hypokalemia, 3.4 12/12. 3.2 12/13, 3.3 /, 5.2 12/15, 3.3 12/16, 3.2 12/17, 3.2 -Increased supplement to 50meq eff BID, labs in am -Follow and replace as needed -Elevation of 12/15 related to hemolysis of sample. Results of 12/16 indicated pt is again hypokalemic. Resume potassium administration. DVT prophylaxis: SCDs, YOUSIF hose, Lovenox. GI prophylaxis: Protonix. Case discussed with pt, RN (Gabriella), and Dr. James. Discharge Planning Discharge planning ongoing. Issues seem to be related to finding an accepting facility as well as payor source. It was noted pt may be discharged to home, CM continues to address this possibility. Pt's is pursuing guardianship of pt, based on documents she is requesting to be completed. Pt's safety is also in question due to his cognitive status. Neuropsychological testing requested to address these issues. Problem Qualifiers (1) Hypertension: Qualified Code: I10 - Essential hypertension Manolo Alvarez Jr. ANTELMO Jan 12, 2017 14:55
[2017-01-12 16:13] VITALS: BP 117/78; PULSE 109; RESP 19; TEMP 98.3; O2SAT 95
--- NOTE | 2017-01-12 17:26 | HHI.PR ---
Progress Notes/Response to Tx Premorbid psychological status Premorbid Cognitive, Emotional and Behavioral Status: Unable to Assess. The patient past history is unknown as there has been no family present. Behavioral Reactions of Patient and Family/Support System: Unable to Assess. The patients family is not present. Emotional/Behavioral Status of Patient and Family/Support System: Unable to Assess. Pertinent issues, if appropriate to this patients clinical care, are described in detail above. Maximizing acute care outcome It is recommended that the patient be monitored for emergent behavioral impulsivity as the medical condition evolves. This patients neuropathological challenges may limit their rehabilitation potential going forward, and these challenges will require specialized therapeutic skills to maximize outcome. Anticipated Problems Ongoing areas of concern will include behavioral impulsivity, lack of insight and judgment, which is expected to improve with time and treatment. Treatment Plan This clinician will continue to follow with you throughout the course of this patients acute care stay, and I will be available to meet with the patients family/support system to facilitate their understanding and the ongoing care of their family member. The goals of neuropsychological intervention shall be both educational and supportive to the family/support system as is deemed clinically appropriate. Diagnosis: (1) Major neurocognitive disorder due to vascular disease, without behavioral disturbance, severe Status: Acute Progress Note Narrative Patient pleasant and alert. Reports no psychological distress presently. Vane Van PhD Jan 12, 2017 17:26
[2017-01-12 20:00] VITALS: BP 130/75; PULSE 95; RESP 18; TEMP 97.3; O2SAT 97
[2017-01-12] MEDS: diphenhydrAMINE HCL 50 MG CAP PO PRN (20:40)
[2017-01-12] MEDS: ENOXAPARIN SODIUM 40 MG/0.4 ML SYRINGE SQ SCH (20:41)
[2017-01-13] MEDS: LABETALOL HCL 100 MG TAB PO SCH ×3 (03:55→20:52)
[2017-01-13] MEDS: CHLORHEXIDINE GLUCONATE 2 % 1 PACK (2 CLOTHS) TOP SCH (04:00)
[2017-01-13 04:19] VITALS: BP 121/74; PULSE 73; RESP 18; TEMP 96.3; O2SAT 95
[2017-01-13 08:00] VITALS: BP 138/87; PULSE 80; RESP 20; TEMP 96.9; O2SAT 94
[2017-01-13] MEDS: POTASSIUM CHLORIDE 25 MEQ EFFERVESCENT TAB NG SCH ×2 (08:49→20:53)
[2017-01-13] MEDS: QUEtiapine FUMARATE 25 MG TAB PO SCH ×3 (08:50→21:03)
[2017-01-13] MEDS: PANTOPRAZOLE SOD 40 MG DELAYED RELEASE TAB PO SCH (08:50)
[2017-01-13] MEDS: PRAVASTATIN SOD 40 MG TAB PO SCH (08:50)
[2017-01-13] MEDS: LACTOBACILLUS ACIDOPHILUS TAB PO SCH ×2 (08:50→20:52)
[2017-01-13] MEDS: FLUDROCORTISONE ACETATE 0.1 MG TAB PO SCH (08:51)
[2017-01-13] MEDS: amLODIPine BESYLATE 5 MG TAB PO SCH (08:51)
[2017-01-13] MEDS: NYSTATIN 100,000 U/GM PWD 15 GM BTL TOPICAL SCH ×3 (08:51→17:05)
[2017-01-13] MEDS: ARTIFICIAL TEARS OPTH SOLN 15 ML BTL EACH EYE SCH ×3 (08:54→17:05)
--- NOTE | 2017-01-13 12:07 | HHI.PR ---
Subjective Remarks Follow-up for intracranial hemorrhage, basilar tip aneurysm. Patient seen and examined. Laying a bed, awake. Reported back pain caused by "little blue man." Oriented to self. States he does not know what year it is and "it doesn't matter to me, said he was in a "[place]urb somewhere" didn't identify the state. When asked about his age, he said "I am 30 or 31." Denies any recent fever, chills, cough, shortness of breath, abdominal pain, NVD , bloody urine or stool Per RN (Gabriella) reported pt is without new issues or concerns from last night or since start of shift. Objective Vitals Vital Signs Date Time Temp Pulse Resp B/P Pulse Ox O2 Delivery O2 Flow Rate FiO2 01/13/17 08:00 96.9 80 20 138/87 94 01/13/17 04:19 96.3 73 18 121/74 95 01/12/17 20:00 97.3 95 18 130/75 97 01/12/17 16:13 98.3 109 19 117/78 95 01/12/17 12:25 97.1 84 18 113/78 94 I/O 01/12/17 01/12/17 01/12/17 01/13/17 01/13/17 01/13/17 07:00 15:00 23:00 07:00 15:00 23:00 Intake Total 650 ml 480 ml 0 ml Output Total 650 ml Balance 0 ml 480 ml 0 ml Intake Oral 650 ml 480 ml IV Total 0 ml Output Urine Total 650 ml # Voids 4 2 6 # Bowel Movements 1 0 Result Diagram: 01/12/17 1135 01/12/17 1135 Objective Remarks GENERAL: Pt encountered sitting at nurse's observation station, finishing breakfast, awake and alert. SKIN: Warm and dry. HEAD: Normocephalic. EYES: No scleral icterus. No injection or drainage. NECK: Supple, trachea midline. No lymphadenopathy. CARDIOVASCULAR: Regular rate and rhythm without murmurs, gallops, or rubs. RESPIRATORY: Breath sounds equal bilaterally. No accessory muscle use. GASTROINTESTINAL: Abdomen soft, non-tender, nondistended. Bowel sounds diminished in all quadrants. MUSCULOSKELETAL: No cyanosis, or edema. PSYCHIATRIC: Pt alert and oriented to self only. He did not evidence overt signs of anxiety or depression. Pt is cooperative. Procedures 10/05/16 right frontal twist drill for ventriculostomy placement 10/20/16 arterial line placement 10/23/16 bedside percutaneous tracheostomy under direct bronchoscopic visualization 10/24/16 PEG tube placement at bedside Medications and IVs Current Medications Medications (Trade) Dose Ordered Sig/Nava Route Start Time Stop Time Status Last Admin (Tylenol) 650 mg Q6H PRN PO 10/05/16 02:45 01/08/17 20:27 (Tears Naturale Opth Soln) 1 drop TID EACH EYE 10/05/16 09:00 01/13/17 08:54 (Zofran Inj) 4 mg Q6H PRN IV 10/05/16 02:45 11/27/16 23:26 Miscellaneous Information 1 Q361D XX 10/05/16 02:45 10/05/16 02:45 (Chlorhexidine 2% Cloth) Taper DAILY@04 TOP 10/05/16 04:00 10/01/17 03:59 01/02/17 04:00 (Chlorhexidine 2% Cloth) 3 pack UNSCH PRN TOP 10/05/16 02:45 (Pravachol) 40 mg DAILY PO 10/05/16 09:00 01/13/17 08:50 (Lovenox Inj) 40 mg Q24H SQ 10/23/16 21:00 01/12/17 20:41 (Trandate) 100 mg Q8H PO 11/03/16 20:00 01/13/17 11:25 (Norvasc) 5 mg DAILY PO 11/04/16 09:00 01/13/17 08:51 (Mycostatin Powder) 1 applic TID TOPICAL 11/06/16 09:00 01/12/17 11:56 (Lactinex) 1 tab Q12HR PO 11/06/16 21:00 01/13/17 08:50 (SEROquel) 25 mg BID@09,12 PO 11/07/16 09:00 01/13/17 11:25 (Colace Liq) 100 mg Q12H PRN G-TUBE 11/06/16 17:00 12/11/16 21:59 (Imodium) 2 mg UNSCH PRN PO 11/09/16 09:45 11/29/16 12:57 (Lomotil Tab) 1 tab Q6H PRN PO 11/09/16 09:45 (SEROquel) 25 mg HS PO 11/20/16 21:00 01/12/17 20:40 (Lactulose Liq) 30 ml QID PRN PO 12/09/16 13:45 (K-Lyte Cl Eff) 50 meq Q12HR NG 12/13/16 09:00 01/13/17 08:49 (Protonix) 40 mg DAILY PO 12/16/16 09:00 01/13/17 08:50 (Florinef) 0.2 mg DAILY PO 12/20/16 09:00 01/13/17 08:51 (Benadryl) 50 mg Q6H PRN PO 12/20/16 17:45 01/12/17 20:40 Urinary Catheter: No A/P Problem List: (1) 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 ICD Code: I60.8 Status: Acute (2) Hypertension ICD Code: I10 Status: Chronic (3) Major neurocognitive disorder due to vascular disease, without behavioral disturbance, severe ICD Code: F01.50 Status: Acute (4) Septic shock ICD Code: A41.9 Status: Resolved (5) Hydrocephalus ICD Code: G91.9 Status: Acute (6) Intracranial hemorrhage ICD Code: I62.9 Status: Acute (7) Major neurocognitive disorder as late effect of traumatic brain injury with behavioral disturbance ICD Code: S06.9X9S Status: Acute (8) Encephalopathy ICD Code: G93.40 Status: Acute (9) Sepsis ICD Code: A41.9 Status: Resolved (10) Pneumonia ICD Code: J18.9 Status: Acute (11) Protein-calorie malnutrition, mild ICD Code: E44.1 Status: Acute (12) Acute respiratory failure with hypoxia and hypercarbia ICD Code: J96.01 Status: Acute Assessment and Plan 51-year-old male status post aneurysm related acute intracranial hemorrhage. 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 -Cont PT/OT -Hematology inquiring about CSF samples. While ordered, samples not available at this time. Order cancelled at direction of Dr. James. -Noted that speech and language pathologist has signed off on 12/27/16 as pt has hit a cognitive plateau. -Discussed with Dr. Fontanezo removal of PEG tube as pt has not been using it for some time. He requested the team that placed it be contacted and asked to remove it.pt is eating without difficulty. Will request RN to contact Dr. Prater. - Dr. Prater removed PEG tube on 01/08/17. -Requesting neuropsychiatric evaluation in order to determine pt's strengths , deficits, insight. results to be used to assist with discharge planning to safe environment/setting. -Neuropsychology saw pt on 01/11/17; awaiting report and recommendations. Acute hypoxic hypercarbic respiratory failure -Tracheostomy 10/23/16, removed, old trach site open to air -Follow respiratory status Cerebral salt wasting: -Follow sodium levels, labs stable -Continue Florinef -By mouth sodium tablets C. difficile colitis, resolved -Completed Flagyl on 10/23 -Follow for diarrhea -Cont Lactinex Hyperglycemia, resolve Normocytic anemia -Follow blood sugars -Anemia resolving as noted with HCT WNL and improved HGB level. Hypokalemia, 3.4 12/12. 3.2 /, 3.3 /14, 5.2 /15, 3.3 /16, 3.2 /, 3.2 -Increased supplement to 50meq eff BID, labs in am -Follow and replace as needed -Elevation of 12/15 related to hemolysis of sample. Results of 12/16 indicated pt is again hypokalemic. Resume potassium administration. DVT prophylaxis: SCDs, YOUSIF hose, Lovenox. GI prophylaxis: Protonix. Case discussed with pt, RN (Gabriella), and Dr. James. Discharge Planning Discharge planning ongoing. Issues seem to be related to finding an accepting facility as well as payor source. It was noted pt may be discharged to home, CM continues to address this possibility. Pt's is pursuing guardianship of pt, based on documents she is requesting to be completed. Pt's safety is also in question due to his cognitive status. Neuropsychological testing requested to address these issues. Problem Qualifiers (1) Hypertension: Qualified Code: I10 - Essential hypertension Manolo Alvarez Jr. Jan 13, 2017 12:07
[2017-01-13 12:27] VITALS: BP 118/70; PULSE 95; RESP 20; TEMP 97.4; O2SAT 95
[2017-01-13 16:00] VITALS: BP 128/78; PULSE 88; RESP 20; TEMP 96.6; O2SAT 98
[2017-01-13 20:00] VITALS: BP 130/74; PULSE 91; RESP 20; TEMP 97.4; O2SAT 96
[2017-01-13] MEDS: ENOXAPARIN SODIUM 40 MG/0.4 ML SYRINGE SQ SCH (20:52)
[2017-01-14] VITALS: BP 122/81; PULSE 84; RESP 20; TEMP 96.7; O2SAT 94
[2017-01-14 04:00] VITALS: BP 131/81; PULSE 76; RESP 20; TEMP 96.7; O2SAT 94
[2017-01-14] MEDS: CHLORHEXIDINE GLUCONATE 2 % 1 PACK (2 CLOTHS) TOP SCH (04:00)
[2017-01-14] MEDS: LABETALOL HCL 100 MG TAB PO SCH ×3 (04:00→21:59)
[2017-01-14 08:05] VITALS: BP 129/68; PULSE 80; RESP 19; TEMP 97.2; O2SAT 96
[2017-01-14] MEDS: LACTOBACILLUS ACIDOPHILUS TAB PO SCH ×2 (09:09→21:59)
[2017-01-14] MEDS: POTASSIUM CHLORIDE 25 MEQ EFFERVESCENT TAB NG SCH ×2 (09:09→21:59)
[2017-01-14] MEDS: ARTIFICIAL TEARS OPTH SOLN 15 ML BTL EACH EYE SCH ×3 (09:09→17:04)
[2017-01-14] MEDS: PANTOPRAZOLE SOD 40 MG DELAYED RELEASE TAB PO SCH (09:10)
[2017-01-14] MEDS: QUEtiapine FUMARATE 25 MG TAB PO SCH ×3 (09:10→21:59)
[2017-01-14] MEDS: amLODIPine BESYLATE 5 MG TAB PO SCH (09:10)
[2017-01-14] MEDS: NYSTATIN 100,000 U/GM PWD 15 GM BTL TOPICAL SCH ×3 (09:10→17:04)
[2017-01-14] MEDS: PRAVASTATIN SOD 40 MG TAB PO SCH (09:10)
[2017-01-14 12:24] VITALS: BP 129/87; PULSE 93; RESP 19; TEMP 97.1; O2SAT 98
--- NOTE | 2017-01-14 13:48 | HHI.PR ---
Subjective Remarks Follow-up for intracranial hemorrhage, basilar tip aneurysm. Patient seen and examined. He was seated at observational nurse's station finishing breakfast. Oriented to self. States the year as "1984" and is currently located in [place], [place]". He reportedly is 31yo (he is 51 yo). Pt spoke of poor sleep last night due to "going on a raid." Denies any recent fever, chills, cough, shortness of breath, abdominal pain, NVD , bloody urine or stool Per RN (Margot) reported pt is without new issues or concerns from last night or since start of shift. Objective Vitals Vital Signs Date Time Temp Pulse Resp B/P Pulse Ox O2 Delivery O2 Flow Rate FiO2 01/14/17 12:24 97.1 93 19 129/87 98 01/14/17 08:05 97.2 80 19 129/68 96 01/14/17 04:00 96.7 76 20 131/81 94 01/14/17 00:00 96.7 84 20 122/81 94 01/13/17 20:00 97.4 91 20 130/74 96 01/13/17 16:00 96.6 88 20 128/78 98 I/O 01/13/17 01/13/17 01/13/17 01/14/17 01/14/17 01/14/17 07:00 15:00 23:00 07:00 15:00 23:00 Intake Total 0 ml 240 ml Balance 0 ml 240 ml Intake Oral 240 ml IV Total 0 ml # Voids 2 2 1 # Bowel Movements 0 0 0 1 Result Diagram: 01/12/17 1135 01/12/17 1135 Objective Remarks GENERAL: Pt encountered sitting at nurse's observation station, finishing breakfast, awake and alert. SKIN: Warm and dry. HEAD: Normocephalic. EYES: No scleral icterus. No injection or drainage. Wearing glasses this morning. NECK: Supple, trachea midline. No lymphadenopathy. CARDIOVASCULAR: Regular rate and rhythm without murmurs, gallops, or rubs. RESPIRATORY: Breath sounds equal bilaterally. No accessory muscle use. GASTROINTESTINAL: Abdomen soft, non-tender, nondistended. Bowel sounds diminished in all quadrants. MUSCULOSKELETAL: No cyanosis, or edema. PSYCHIATRIC: Pt alert and oriented to self only. He did not evidence overt signs of anxiety or depression. Pt is cooperative. Procedures 4/5/17 right frontal twist drill for ventriculostomy placement 10/20/16 arterial line placement 10/23/16 bedside percutaneous tracheostomy under direct bronchoscopic visualization 10/24/16 PEG tube placement at bedside Medications and IVs Current Medications Medications (Trade) Dose Ordered Sig/Nava Route Start Time Stop Time Status Last Admin (Tylenol) 650 mg Q6H PRN PO 10/05/16 02:45 01/08/17 20:27 (Tears Naturale Opth Soln) 1 drop TID EACH EYE 10/05/16 09:00 01/13/17 17:05 (Zofran Inj) 4 mg Q6H PRN IV 10/05/16 02:45 11/27/16 23:26 Miscellaneous Information 1 Q361D XX 10/05/16 02:45 10/05/16 02:45 (Chlorhexidine 2% Cloth) Taper DAILY@04 TOP 10/05/16 04:00 10/01/17 03:59 01/02/17 04:00 (Chlorhexidine 2% Cloth) 3 pack UNSCH PRN TOP 10/05/16 02:45 (Pravachol) 40 mg DAILY PO 10/05/16 09:00 01/14/17 09:10 (Lovenox Inj) 40 mg Q24H SQ 10/23/16 21:00 01/13/17 20:52 (Trandate) 100 mg Q8H PO 11/03/16 20:00 01/14/17 11:39 (Norvasc) 5 mg DAILY PO 11/04/16 09:00 01/14/17 09:10 (Mycostatin Powder) 1 applic TID TOPICAL 11/06/16 09:00 01/14/17 12:19 (Lactinex) 1 tab Q12HR PO 11/06/16 21:00 01/14/17 09:09 (SEROquel) 25 mg BID@09,12 PO 11/07/16 09:00 01/14/17 11:39 (Colace Liq) 100 mg Q12H PRN G-TUBE 11/06/16 17:00 12/11/16 21:59 (Imodium) 2 mg UNSCH PRN PO 11/09/16 09:45 11/29/16 12:57 (Lomotil Tab) 1 tab Q6H PRN PO 11/09/16 09:45 (SEROquel) 25 mg HS PO 11/20/16 21:00 01/13/17 21:03 (Lactulose Liq) 30 ml QID PRN PO 12/09/16 13:45 (K-Lyte Cl Eff) 50 meq Q12HR NG 12/13/16 09:00 01/14/17 09:09 (Protonix) 40 mg DAILY PO 12/16/16 09:00 01/14/17 09:10 (Benadryl) 50 mg Q6H PRN PO 12/20/16 17:45 01/12/17 20:40 (Florinef) 0.2 mg Q48H PO 01/15/17 09:00 A/P Problem List: (1) 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 ICD Code: I60.8 Status: Acute (2) Hypertension ICD Code: I10 Status: Chronic (3) Major neurocognitive disorder due to vascular disease, without behavioral disturbance, severe ICD Code: F01.50 Status: Acute (4) Septic shock ICD Code: A41.9 Status: Resolved (5) Hydrocephalus ICD Code: G91.9 Status: Acute (6) Intracranial hemorrhage ICD Code: I62.9 Status: Acute (7) Major neurocognitive disorder as late effect of traumatic brain injury with behavioral disturbance ICD Code: S06.9X9S Status: Acute (8) Encephalopathy ICD Code: G93.40 Status: Acute (9) Sepsis ICD Code: A41.9 Status: Resolved (10) Pneumonia ICD Code: J18.9 Status: Acute (11) Protein-calorie malnutrition, mild ICD Code: E44.1 Status: Acute (12) Acute respiratory failure with hypoxia and hypercarbia ICD Code: J96.01 Status: Acute Assessment and Plan 51-year-old male status post aneurysm related acute intracranial hemorrhage. Awaiting results of neuropsychology report. Pt continues to evidence impulsiveness and unaware of surroundings.. Labs ordered in am. Fludrocortisone to be administered q 48 hrs first dose new schedule to be given on 01/15/17. 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 -Cont PT/OT -Hematology inquiring about CSF samples. While ordered, samples not available at this time. Order cancelled at direction of Dr. James. -Noted that speech and language pathologist has signed off on 12/27/16 as pt has hit a cognitive plateau. -Discussed with Dr. Cortes removal of PEG tube as pt has not been using it for some time. He requested the team that placed it be contacted and asked to remove it.pt is eating without difficulty. Will request RN to contact Dr. Prater. - Dr. Prater removed PEG tube on 01/08/17. -Requesting neuropsychiatric evaluation in order to determine pt's strengths , deficits, insight. results to be used to assist with discharge planning to safe environment/setting. -Neuropsychology saw pt on 01/11/17; awaiting report and recommendations. Acute hypoxic hypercarbic respiratory failure -Tracheostomy 10/23/16, removed, old trach site open to air -Follow respiratory status Cerebral salt wasting: -Follow sodium levels, labs stable -Continue Florinef -By mouth sodium tablets C. difficile colitis, resolved -Completed Flagyl on 10/23 -Follow for diarrhea -Cont Lactinex Hyperglycemia, resolve Normocytic anemia -Follow blood sugars -Anemia resolving as noted with HCT WNL and improved HGB level. Hypokalemia, 3.4 12/12. 3.2 12/13, 3.3 12/14, 5.2 12/15, 3.3 12/16, 3.2 12/17, 3.2 -Increased supplement to 50meq eff BID, labs in am -Follow and replace as needed -Elevation of 12/15 related to hemolysis of sample. Results of 12/16 indicated pt is again hypokalemic. Resume potassium administration. DVT prophylaxis: SCDs, YOUSIF hose, Lovenox. GI prophylaxis: Protonix. Case discussed with pt, RN, and Dr. James. Discharge Planning Discharge planning ongoing. Issues seem to be related to finding an accepting facility as well as payor source. It was noted pt may be discharged to home, CM continues to address this possibility. Pt's is pursuing guardianship of pt, based on documents she is requesting to be completed. Pt's safety is also in question due to his cognitive status. Neuropsychological testing requested to address these issues. Problem Qualifiers (1) Hypertension: Qualified Code: I10 - Essential hypertension Manolo Alvarez Jr. Jan 14, 2017 13:48
[2017-01-14 16:00] VITALS: BP 134/79; PULSE 79; RESP 19; TEMP 97.7; O2SAT 95
[2017-01-14 21:40] VITALS: BP 140/80; PULSE 89; RESP 22; TEMP 98.1; O2SAT 95
[2017-01-14] MEDS: ENOXAPARIN SODIUM 40 MG/0.4 ML SYRINGE SQ SCH (22:01)
[2017-01-15] MEDS: CHLORHEXIDINE GLUCONATE 2 % 1 PACK (2 CLOTHS) TOP SCH ×2 (04:00→20:09)
[2017-01-15] MEDS: LABETALOL HCL 100 MG TAB PO SCH ×3 (04:45→20:00)
[2017-01-15 05:40] VITALS: BP 134/74; PULSE 80; RESP 20; TEMP 98; O2SAT 97
[2017-01-15 08:00] VITALS: BP 134/86; PULSE 81; RESP 17; TEMP 97.7; O2SAT 95
[2017-01-15] MEDS: PANTOPRAZOLE SOD 40 MG DELAYED RELEASE TAB PO SCH (09:00)
[2017-01-15 09:08] LABS: BICARBONATE 27.4 MEQ/L (21.0-32.0); CREATININE 1.11 MG/DL (0.60-1.30)
[2017-01-15] MEDS: LACTOBACILLUS ACIDOPHILUS TAB PO SCH ×2 (09:26→20:43)
[2017-01-15] MEDS: POTASSIUM CHLORIDE 25 MEQ EFFERVESCENT TAB NG SCH ×2 (09:26→20:43)
[2017-01-15] MEDS: PRAVASTATIN SOD 40 MG TAB PO SCH (09:27)
[2017-01-15] MEDS: QUEtiapine FUMARATE 25 MG TAB PO SCH ×3 (09:28→20:43)
[2017-01-15] MEDS: amLODIPine BESYLATE 5 MG TAB PO SCH (09:28)
[2017-01-15] MEDS: ARTIFICIAL TEARS OPTH SOLN 15 ML BTL EACH EYE SCH ×3 (09:29→17:55)
[2017-01-15] MEDS: NYSTATIN 100,000 U/GM PWD 15 GM BTL TOPICAL SCH ×3 (09:30→17:55)
[2017-01-15] MEDS: FLUDROCORTISONE ACETATE 0.1 MG TAB PO SCH (09:34)
[2017-01-15 12:00] VITALS: BP 140/82; PULSE 85; RESP 17; TEMP 97.3; O2SAT 94
--- NOTE | 2017-01-15 12:18 | HHI.PR ---
Subjective Remarks Follow-up for intracranial hemorrhage, basilar tip aneurysm. Patient seen and examined. He was laying in bed, resting, awake. Oriented to self. States the year as "1985" and is currently located in [place], [place]". He reportedly is 49 yo (he is 51 yo). Pt spoke of poor sleep last night. Denies any recent fever, chills, cough, shortness of breath, abdominal pain, NVD , bloody urine or stool Per RN (Irving) reported pt is without new issues or concerns from last night or since start of shift. Objective Vitals Vital Signs Date Time Temp Pulse Resp B/P Pulse Ox O2 Delivery O2 Flow Rate FiO2 01/15/17 08:00 97.7 81 17 134/86 95 01/15/17 05:40 98.0 80 20 134/74 97 01/14/17 21:40 98.1 89 22 140/80 95 01/14/17 16:00 97.7 79 19 134/79 95 01/14/17 12:24 97.1 93 19 129/87 98 I/O 01/14/17 01/14/17 01/14/17 01/15/17 01/15/17 01/15/17 06:59 14:59 22:59 06:59 14:59 22:59 Intake Total 840 ml 600 ml Balance 840 ml 600 ml Intake Oral 840 ml 600 ml # Voids 1 8 3 # Bowel Movements 0 1 1 0 Result Diagram: 01/12/17 1135 01/15/17 0711 Objective Remarks GENERAL: Pt encountered laying a bed, awake and alert. SKIN: Warm and dry. HEAD: Normocephalic. EYES: No scleral icterus. No injection or drainage. NECK: Supple, trachea midline. No lymphadenopathy. CARDIOVASCULAR: Regular rate and rhythm without murmurs, gallops, or rubs. RESPIRATORY: Breath sounds equal bilaterally. No accessory muscle use. GASTROINTESTINAL: Abdomen soft, non-tender, nondistended. Bowel sounds diminished in all quadrants. MUSCULOSKELETAL: No cyanosis, or edema. PSYCHIATRIC: Pt alert and oriented to self only. He did not evidence overt signs of anxiety or depression. Pt is pleasant and cooperative. Procedures 10/05/16 right frontal twist drill for ventriculostomy placement 10/20/16 arterial line placement 10/23/16 bedside percutaneous tracheostomy under direct bronchoscopic visualization 10/24/16 PEG tube placement at bedside Medications and IVs Current Medications Medications (Trade) Dose Ordered Sig/Nava Route Start Time Stop Time Status Last Admin (Tylenol) 650 mg Q6H PRN PO 10/05/16 02:45 01/08/17 20:27 (Tears Naturale Opth Soln) 1 drop TID EACH EYE 10/05/16 09:00 01/15/17 09:29 (Zofran Inj) 4 mg Q6H PRN IV 10/05/16 02:45 11/27/16 23:26 Miscellaneous Information 1 Q361D XX 10/05/16 02:45 10/05/16 02:45 (Chlorhexidine 2% Cloth) Taper DAILY@04 TOP 10/05/16 04:00 10/01/17 03:59 01/02/17 04:00 (Chlorhexidine 2% Cloth) 3 pack UNSCH PRN TOP 10/05/16 02:45 (Pravachol) 40 mg DAILY PO 10/05/16 09:00 01/15/17 09:27 (Lovenox Inj) 40 mg Q24H SQ 10/23/16 21:00 01/14/17 22:01 (Trandate) 100 mg Q8H PO 11/03/16 20:00 01/15/17 04:45 (Norvasc) 5 mg DAILY PO 11/04/16 09:00 01/15/17 09:28 (Mycostatin Powder) 1 applic TID TOPICAL 11/06/16 09:00 01/15/17 09:30 (Lactinex) 1 tab Q12HR PO 11/06/16 21:00 01/15/17 09:26 (SEROquel) 25 mg BID@09,12 PO 11/07/16 09:00 01/15/17 09:28 (Colace Liq) 100 mg Q12H PRN G-TUBE 11/06/16 17:00 12/11/16 21:59 (Imodium) 2 mg UNSCH PRN PO 11/09/16 09:45 11/29/16 12:57 (Lomotil Tab) 1 tab Q6H PRN PO 11/09/16 09:45 (SEROquel) 25 mg HS PO 11/20/16 21:00 01/14/17 21:59 (Lactulose Liq) 30 ml QID PRN PO 12/09/16 13:45 (K-Lyte Cl Eff) 50 meq Q12HR NG 12/13/16 09:00 01/15/17 09:26 (Protonix) 40 mg DAILY PO 12/16/16 09:00 01/15/17 09:00 (Benadryl) 50 mg Q6H PRN PO 12/20/16 17:45 01/12/17 20:40 (Florinef) 0.2 mg Q48H PO 01/15/17 09:00 01/15/17 09:34 Urinary Catheter: No A/P Problem List: (1) 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 ICD Code: I60.8 Status: Acute (2) Hypertension ICD Code: I10 Status: Chronic (3) Major neurocognitive disorder due to vascular disease, without behavioral disturbance, severe ICD Code: F01.50 Status: Acute (4) Septic shock ICD Code: A41.9 Status: Resolved (5) Hydrocephalus ICD Code: G91.9 Status: Acute (6) Intracranial hemorrhage ICD Code: I62.9 Status: Acute (7) Major neurocognitive disorder as late effect of traumatic brain injury with behavioral disturbance ICD Code: S06.9X9S Status: Acute (8) Encephalopathy ICD Code: G93.40 Status: Acute (9) Sepsis ICD Code: A41.9 Status: Resolved (10) Pneumonia ICD Code: J18.9 Status: Acute (11) Protein-calorie malnutrition, mild ICD Code: E44.1 Status: Acute (12) Acute respiratory failure with hypoxia and hypercarbia ICD Code: J96.01 Status: Acute Assessment and Plan 51-year-old male status post aneurysm related acute intracranial hemorrhage. Labs resulted and reviewed. Sodium is 144. Fludrocortisone now to be given q 48 hrs. 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 -Cont PT/OT -Hematology inquiring about CSF samples. While ordered, samples not available at this time. Order cancelled at direction of Dr. James. -Noted that speech and language pathologist has signed off on 12/27/16 as pt has hit a cognitive plateau. -Discussed with Dr. Cortes removal of PEG tube as pt has not been using it for some time. He requested the team that placed it be contacted and asked to remove it.pt is eating without difficulty. Will request RN to contact Dr. Prater. - Dr. Prater removed PEG tube on 01/08/17. -Requesting neuropsychiatric evaluation in order to determine pt's strengths , deficits, insight. results to be used to assist with discharge planning to safe environment/setting. -Neuropsychology saw pt on 01/11/17; awaiting report and recommendations. Acute hypoxic hypercarbic respiratory failure -Tracheostomy 10/23/16, removed, old trach site open to air -Follow respiratory status Cerebral salt wasting: -Follow sodium levels, labs stable -Continue Florinef -By mouth sodium tablets C. difficile colitis, resolved -Completed Flagyl on 10/23 -Follow for diarrhea -Cont Lactinex Hyperglycemia, resolve Normocytic anemia -Follow blood sugars -Anemia resolving as noted with HCT WNL and improved HGB level. Hypokalemia, 3.4 12/12. 3.2 12/13, 3.3 12/14, 5.2 12/15, 3.3 12/16, 3.2 12/17, 3.2 -Increased supplement to 50meq eff BID, labs in am -Follow and replace as needed -Elevation of 12/15 related to hemolysis of sample. Results of 12/16 indicated pt is again hypokalemic. Resume potassium administration. DVT prophylaxis: SCDs, YOUSIF hose, Lovenox. GI prophylaxis: Protonix. Case discussed with pt, RN, and Dr. James. Discharge Planning Discharge planning ongoing. Issues seem to be related to finding an accepting facility as well as payor source. It was noted pt may be discharged to home, CM continues to address this possibility. Pt's is pursuing guardianship of pt, based on documents she is requesting to be completed. Pt's safety is also in question due to his cognitive status. Neuropsychological testing requested to address these issues. Problem Qualifiers (1) Hypertension: Qualified Code: I10 - Essential hypertension Manolo Alvarez Jr. Jan 15, 2017 12:18
[2017-01-15 16:00] VITALS: BP 116/74; PULSE 83; RESP 17; TEMP 96.8; O2SAT 94
[2017-01-15] MEDS: ENOXAPARIN SODIUM 40 MG/0.4 ML SYRINGE SQ SCH (20:43)
[2017-01-16] VITALS (7 sets, daily range): BP systolic 112–144; BP diastolic 70–87; PULSE 73–93; RESP 17–20; TEMP 96.6–98; O2SAT 94–100
[2017-01-16] MEDS: LABETALOL HCL 100 MG TAB PO SCH ×3 (05:31→22:17)
[2017-01-16] MEDS: PANTOPRAZOLE SOD 40 MG DELAYED RELEASE TAB PO SCH (08:02)
[2017-01-16] MEDS: LACTOBACILLUS ACIDOPHILUS TAB PO SCH ×2 (08:02→22:16)
[2017-01-16] MEDS: POTASSIUM CHLORIDE 25 MEQ EFFERVESCENT TAB NG SCH ×2 (08:02→22:16)
[2017-01-16] MEDS: amLODIPine BESYLATE 5 MG TAB PO SCH (08:03)
[2017-01-16] MEDS: PRAVASTATIN SOD 40 MG TAB PO SCH (08:03)
[2017-01-16] MEDS: QUEtiapine FUMARATE 25 MG TAB PO SCH ×3 (08:03→22:16)
[2017-01-16] MEDS: NYSTATIN 100,000 U/GM PWD 15 GM BTL TOPICAL SCH ×3 (08:04→18:00)
[2017-01-16] MEDS: ARTIFICIAL TEARS OPTH SOLN 15 ML BTL EACH EYE SCH ×3 (08:04→18:00)
--- NOTE | 2017-01-16 11:29 | HHI.PR ---
Subjective Remarks Follow-up for intracranial hemorrhage, basilar tip aneurysm. Patient seen and examined today, lying in bed sleeping. Awakens to voice. Patient continues to be pleasantly confused. Spoke with RN, denies any new acute events overnight. Tolerating PO intake. Afebrile. VSS. Objective Vitals Vital Signs Date Time Temp Pulse Resp B/P Pulse Ox O2 Delivery O2 Flow Rate FiO2 01/16/17 08:00 96.6 73 17 144/87 95 01/16/17 04:00 97.4 78 18 123/78 100 01/16/17 00:00 97.5 85 18 126/80 100 01/15/17 16:00 96.8 83 17 116/74 94 01/15/17 12:00 97.3 85 17 140/82 94 I/O 01/15/17 01/15/17 01/15/17 01/16/17 01/16/17 01/16/17 07:00 15:00 23:00 07:00 15:00 23:00 Intake Total 600 ml 840 ml Balance 600 ml 840 ml Intake Oral 600 ml 840 ml # Voids 3 11 4 # Bowel Movements 0 2 Result Diagram: 01/12/17 1135 01/15/17 0711 Imaging Last Impressions Head CT 12/09/16 0000 Signed Impressions: Service Date/Time: Friday, December 09, 2016 17:36 - CONCLUSION: 1. Right ventriculostomy tube remains in place with decrease in ventricular size since November 24. There is some encephalomalacia around the shunt and a probable small infarct in the left basal ganglia. No new hemorrhage or shift. Tip Harris MD Abdomen X-Ray 11/28/16 0000 Signed Impressions: Service Date/Time: Monday, November 28, 2016 16:00 - CONCLUSION: 1. No evidence of bowel obstruction, ileus or perforation. 2. Degenerative changes and scoliosis of the thoracolumbar spine. 3. Degenerative changes involving the hip joints bilaterally. Juan Worley MD Chest X-Ray 11/01/16 0600 Signed Impressions: Service Date/Time: Tuesday, November 01, 2016 04:37 - CONCLUSION: 1. No acute cardiopulmonary disease. Trevin De León MD Transcranial Doppler Study Complete 10/26/16 0700 Signed Impressions: Service Date/Time: Wednesday, October 26, 2016 08:20 - CONCLUSION: Minimal interval improvement with no evidence for vasospasm. Christian Song MD FACR Neck CTA 10/19/16 0000 Signed Impressions: Service Date/Time: Wednesday, October 19, 2016 14:19 - CONCLUSION: Negative for dissection or significant stenosis. Christian Song MD FACR Head CTA 10/19/16 0000 Signed Impressions: Service Date/Time: Wednesday, October 19, 2016 14:19 - CONCLUSION: 1. Interval development of significant vasospasm in the left MCA and SRI territories. 2. Mild vasospasm in the basilar artery.. Gume Mckeon MD Cerebral Arteriogram 10/19/16 0000 Signed Impressions: Service Date/Time: Wednesday, October 19, 2016 16:06 - CONCLUSION: 1. Vasospasm in the left MCA and SRI territories 2. Spasmolytic infusion, left internal carotid artery as above.. 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 Gume Mckeon MD Pelvis X-Ray 10/05/16109 Signed Impressions: Service Date/Time: Wednesday, October 05, 2016 01:22 - CONCLUSION: Unremarkable examination of the pelvis. Ruben Acuña Jr., MD Chest CT 10/05/16109 Signed Impressions: Service Date/Time: Wednesday, October 05, 2016 01:46 - CONCLUSION: 1. No acute intrathoracic abnormality. 2. Bibasilar atelectasis. 3. Cardiomegaly. 4. Prior granulomatous disease. Ruben Acuña Jr., MD Cervical Spine CT 10/05/16109 Signed Impressions: Service Date/Time: Wednesday, October 05, 2016 01:40 - CONCLUSION: 1. No fracture or dislocation. 2. Multilevel degenerative changes. Ruben Acuña Jr., MD Abdomen/Pelvis CT 10/05/16109 Signed Impressions: Service Date/Time: Wednesday, October 05, 2016 01:46 - CONCLUSION: 1. No acute trauma. 2. Rounded area of decreased density involving the pancreatic head. I cannot completely exclude pancreatic head mass. At some point MRI of the pancreas is suggested to further evaluate. 3. Focal area of poor enhancement involving the left kidney. This may relate to an area of parenchymal scarring. I cannot completely exclude a mass. This can be further assessed with MRI as well. Ruben Acuña Jr., MD Objective Remarks GENERAL: Well-nourished, well-developed male patient, in no apparent distress sleeping in bed comfortably. Pleasantly confused, oriented x 1 to self. SKIN: No rash. Warm and dry. HEENT: Pupils equal round and reactive. Normocephalic. Extraocular motions intact. No scleral icterus. No injection or drainage. Oral mucosa moist. NECK: Trachea midline. Supple. CARDIOVASCULAR: RRR. No murmur appreciated. RESPIRATORY: Clear to auscultation. Breath sounds equal bilaterally. No wheezes , rales, or rhonchi. GASTROINTESTINAL: Abdomen soft, non-tender, nondistended. No guarding. MUSCULOSKELETAL: Extremities without clubbing, cyanosis, or edema. NEUROLOGICAL: Awake and alert. Moves all 4 extremities, equal no weakness noted. 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 ICD Code: I60.8 Status: Acute (2) Hypertension ICD Code: I10 Status: Chronic (3) Major neurocognitive disorder due to vascular disease, without behavioral disturbance, severe ICD Code: F01.50 Status: Acute (4) Septic shock ICD Code: A41.9 Status: Resolved (5) Hydrocephalus ICD Code: G91.9 Status: Acute (6) Intracranial hemorrhage ICD Code: I62.9 Status: Acute (7) Major neurocognitive disorder as late effect of traumatic brain injury with behavioral disturbance ICD Code: S06.9X9S Status: Acute (8) Encephalopathy ICD Code: G93.40 Status: Acute (9) Sepsis ICD Code: A41.9 Status: Resolved (10) Pneumonia ICD Code: J18.9 Status: Acute (11) Protein-calorie malnutrition, mild ICD Code: E44.1 Status: Acute (12) Acute respiratory failure with hypoxia and hypercarbia ICD Code: J96.01 Status: Acute Assessment and Plan Mr. Nunez is a 51 year old male who was brought to the hospital as a trauma alert due to head injury after he fell in the bathroom and hit his head. Patient was unresponsive for approximately 15 minutes by the time ambulance services arrived. His mentation waxed and waned with GCS ranging from [address] head indicated subarachnoid hemorrhage, acute. Intracranial hemorrhage, status post basilar artery coiling 10/05, Status post [employer] shunt on 11/24/2016 Chronic encephalopathy Hydrocephalus - Continue Keppra. - Neurology signed off for now. Neuropsychology following patient ultimately for discharge placement and assistance with recommendations. Per neuropsych note , ongoing areas of concern include behavioral impulsivity, lack of insight and judgement. - Speech therapy recommends regular diet with thin liquids, Patient is eating well. PEG dc'd 01/08/17. - Cont PT/OT. Acute hypoxic hypercarbic respiratory failure - Tracheostomy 10/23/16, removed, old trach site healed. - Follow respiratory status Cerebral salt wasting: - Follow sodium levels, labs stable - Decrease Florinef to 0.2 mg PO q48hrs. C. difficile colitis, resolved -Completed Flagyl on 10/23 -Follow for diarrhea, denies any at this time. -Cont Lactinex Hypokalemia, resolved: Continue scheduled KCL 50 meq PO BID. Follow and replace as needed. DVT prophylaxis: SCDs, YOUSIF hose, Lovenox. Ambulation. GI prophylaxis: Protonix. Discussed with RN and Dr. James Discharge Planning Discharge planning ongoing. Issues seem to be related to finding an accepting facility as well as payor source. It was noted pt may be discharged to home, CM continues to address this possibility. Pt's is pursuing guardianship of pt, based on documents she is requesting to be completed. Pt's safety is also in question due to his cognitive status. Neuropsychological testing requested to address these issues. Last CM note: 01/12/17 2:30pm: Pt being evaluated by neuropsych to assist with placement Problem Qualifiers (1) Hypertension: Qualified Code: I10 - Essential hypertension Dariela Del Cid Jan 16, 2017 11:29
[2017-01-16] MEDS: ENOXAPARIN SODIUM 40 MG/0.4 ML SYRINGE SQ SCH (22:16)
[2017-01-17] MEDS: CHLORHEXIDINE GLUCONATE 2 % 1 PACK (2 CLOTHS) TOP SCH (01:37)
[2017-01-17] MEDS: LABETALOL HCL 100 MG TAB PO SCH ×4 (03:11→22:25)
[2017-01-17 04:15] VITALS: BP 123/74; PULSE 72; RESP 20; TEMP 96.8; O2SAT 98
[2017-01-17 08:10] VITALS: BP 123/81; PULSE 76; RESP 17; TEMP 97.1; O2SAT 94
[2017-01-17] MEDS: POTASSIUM CHLORIDE 25 MEQ EFFERVESCENT TAB NG SCH ×2 (09:00→22:26)
[2017-01-17] MEDS: ARTIFICIAL TEARS OPTH SOLN 15 ML BTL EACH EYE SCH ×3 (09:00→18:00)
[2017-01-17] MEDS: NYSTATIN 100,000 U/GM PWD 15 GM BTL TOPICAL SCH ×3 (09:00→18:00)
[2017-01-17] MEDS: PRAVASTATIN SOD 40 MG TAB PO SCH (09:39)
[2017-01-17] MEDS: LACTOBACILLUS ACIDOPHILUS TAB PO SCH ×2 (09:39→22:25)
[2017-01-17] MEDS: QUEtiapine FUMARATE 25 MG TAB PO SCH ×3 (09:39→22:26)
[2017-01-17] MEDS: PANTOPRAZOLE SOD 40 MG DELAYED RELEASE TAB PO SCH (09:39)
[2017-01-17] MEDS: amLODIPine BESYLATE 5 MG TAB PO SCH (09:39)
[2017-01-17] MEDS: FLUDROCORTISONE ACETATE 0.1 MG TAB PO SCH (09:40)
--- NOTE | 2017-01-17 10:02 | HHI.PR ---
Subjective Remarks Follow-up for intracranial hemorrhage, basilar tip aneurysm. Patient seen and examined, sitting up in chair at nursing station. Awake, pleasantly confused. Speech clear. Denies any new acute events overnight. Denies any recent fever, chills, cough, headache, abdominal pain, n/v, diarrhea or dysuria. Eating well. Afebrile. VSS. Objective Vitals Vital Signs Date Time Temp Pulse Resp B/P Pulse Ox O2 Delivery O2 Flow Rate FiO2 01/17/17 08:10 97.1 76 17 123/81 94 01/17/17 04:15 96.8 72 20 123/74 98 01/16/17 23:32 98.0 81 20 117/70 94 01/16/17 20:07 97.9 78 19 128/77 95 01/16/17 16:29 97.4 75 20 125/81 95 01/16/17 12:00 97.4 93 17 112/80 94 I/O 01/16/17 01/16/17 01/16/17 01/17/17 01/17/17 01/17/17 07:00 15:00 23:00 07:00 15:00 23:00 Intake Total 480 ml 120 ml Balance 480 ml 120 ml Intake Oral 480 ml 120 ml # Voids 4 1 2 # Bowel Movements 0 0 Result Diagram: 01/15/17 0711 Imaging Last Impressions Head CT 12/09/16 0000 Signed Impressions: Service Date/Time: Friday, December 09, 2016 17:36 - CONCLUSION: 1. Right ventriculostomy tube remains in place with decrease in ventricular size since November 24. There is some encephalomalacia around the shunt and a probable small infarct in the left basal ganglia. No new hemorrhage or shift. Tip Harris MD Abdomen X-Ray 11/28/16 0000 Signed Impressions: Service Date/Time: Monday, November 28, 2016 16:00 - CONCLUSION: 1. No evidence of bowel obstruction, ileus or perforation. 2. Degenerative changes and scoliosis of the thoracolumbar spine. 3. Degenerative changes involving the hip joints bilaterally. Juan Worley MD Chest X-Ray 11/01/16 0600 Signed Impressions: Service Date/Time: Tuesday, November 01, 2016 04:37 - CONCLUSION: 1. No acute cardiopulmonary disease. Trevin De León MD Transcranial Doppler Study Complete 10/26/16 0700 Signed Impressions: Service Date/Time: Wednesday, October 26, 2016 08:20 - CONCLUSION: Minimal interval improvement with no evidence for vasospasm. Christian Song MD FACR Neck CTA 10/19/16 0000 Signed Impressions: Service Date/Time: Wednesday, October 19, 2016 14:19 - CONCLUSION: Negative for dissection or significant stenosis. Christian Song MD FACR Head CTA 10/19/16 0000 Signed Impressions: Service Date/Time: Wednesday, October 19, 2016 14:19 - CONCLUSION: 1. Interval development of significant vasospasm in the left MCA and SRI territories. 2. Mild vasospasm in the basilar artery.. Gume Mckeon MD Cerebral Arteriogram 10/19/16 0000 Signed Impressions: Service Date/Time: Wednesday, October 19, 2016 16:06 - CONCLUSION: 1. Vasospasm in the left MCA and SRI territories 2. Spasmolytic infusion, left internal carotid artery as above.. 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 Gume Mckeon MD Pelvis X-Ray 10/05/16109 Signed Impressions: Service Date/Time: Wednesday, October 05, 2016 01:22 - CONCLUSION: Unremarkable examination of the pelvis. Ruben Acuña Jr., MD Chest CT 10/05/16109 Signed Impressions: Service Date/Time: Wednesday, October 05, 2016 01:46 - CONCLUSION: 1. No acute intrathoracic abnormality. 2. Bibasilar atelectasis. 3. Cardiomegaly. 4. Prior granulomatous disease. Ruben Acuña Jr., MD Cervical Spine CT 10/05/16109 Signed Impressions: Service Date/Time: Wednesday, October 05, 2016 01:40 - CONCLUSION: 1. No fracture or dislocation. 2. Multilevel degenerative changes. Ruben Acuña Jr., MD Abdomen/Pelvis CT 10/05/16109 Signed Impressions: Service Date/Time: Wednesday, October 05, 2016 01:46 - CONCLUSION: 1. No acute trauma. 2. Rounded area of decreased density involving the pancreatic head. I cannot completely exclude pancreatic head mass. At some point MRI of the pancreas is suggested to further evaluate. 3. Focal area of poor enhancement involving the left kidney. This may relate to an area of parenchymal scarring. I cannot completely exclude a mass. This can be further assessed with MRI as well. Ruben Acuña Jr., MD Objective Remarks GENERAL: Well-nourished, well-developed male patient, in no apparent distress sitting up in chair at nursing station. Pleasantly confused, oriented x 1 to self. SKIN: No rash. Warm and dry. HEENT: Pupils equal round and reactive. Normocephalic. Extraocular motions intact. No scleral icterus. No injection or drainage. NECK: Trachea midline. Supple. CARDIOVASCULAR: RRR. No murmur appreciated. RESPIRATORY: Clear to auscultation. Breath sounds equal bilaterally. No wheezes , rales, or rhonchi. GASTROINTESTINAL: Abdomen soft, non-tender, nondistended. No guarding. MUSCULOSKELETAL: Extremities without clubbing, cyanosis, or edema. NEUROLOGICAL: Awake and alert. Moves all 4 extremities, equal no weakness noted. 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 ICD Code: I60.8 Status: Acute (2) Hypertension ICD Code: I10 Status: Chronic (3) Major neurocognitive disorder due to vascular disease, without behavioral disturbance, severe ICD Code: F01.50 Status: Acute (4) Septic shock ICD Code: A41.9 Status: Resolved (5) Hydrocephalus ICD Code: G91.9 Status: Acute (6) Intracranial hemorrhage ICD Code: I62.9 Status: Acute (7) Major neurocognitive disorder as late effect of traumatic brain injury with behavioral disturbance ICD Code: S06.9X9S Status: Acute (8) Encephalopathy ICD Code: G93.40 Status: Acute (9) Sepsis ICD Code: A41.9 Status: Resolved (10) Pneumonia ICD Code: J18.9 Status: Acute (11) Protein-calorie malnutrition, mild ICD Code: E44.1 Status: Acute (12) Acute respiratory failure with hypoxia and hypercarbia ICD Code: J96.01 Status: Acute Assessment and Plan Mr. Nunez is a 51 year old male who was brought to the hospital as a trauma alert due to head injury after he fell in the bathroom and hit his head. Patient was unresponsive for approximately 15 minutes by the time ambulance services arrived. His mentation waxed and waned with GCS ranging from [address] head indicated subarachnoid hemorrhage, acute. 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 - Neurology signed off for now. Neuropsychology following patient ultimately for discharge placement and assistance with recommendations. Per neuropsych note , ongoing areas of concern include behavioral impulsivity, lack of insight and judgement. - Speech therapy recommends regular diet with thin liquids, Patient is eating well. PEG dc'd 01/08/17. - Cont PT/OT. Acute hypoxic hypercarbic respiratory failure - Tracheostomy 10/23/16, removed, old trach site healed. - Follow respiratory status Cerebral salt wasting: - Follow sodium levels, labs stable - Florinef to 0.2 mg PO q48hrs. C. difficile colitis, resolved -Completed Flagyl on 10/23 -Follow for diarrhea, denies any at this time. -Cont Lactinex Hypokalemia, resolved: Continue scheduled KCL 50 meq PO BID. Follow and replace as needed. DVT prophylaxis: SCDs, YOUSIF hose, Lovenox. Ambulation. GI prophylaxis: Protonix. Discussed with RN and Dr. James Discharge Planning Discharge planning ongoing. Issues seem to be related to finding an accepting facility as well as payor source. It was noted pt may be discharged to home, CM continues to address this possibility. Pt's is pursuing guardianship of pt, based on documents she is requesting to be completed. Pt's safety is also in question due to his cognitive status. Neuropsychological testing requested to address these issues. Last CM note: 01/16/17 3:13pm: Pt not a safe discharge. No neuropsychic recommendations noted Problem Qualifiers (1) Hypertension: Qualified Code: I10 - Essential hypertension Dariela Del Cid Jan 17, 2017 10:02
[2017-01-17 12:00] VITALS: BP 126/85; PULSE 88; RESP 17; TEMP 97.8; O2SAT 94
[2017-01-17 16:00] VITALS: BP 105/74; PULSE 87; RESP 17; TEMP 97.6; O2SAT 94
[2017-01-17 20:46] VITALS: BP 121/67; PULSE 91; RESP 19; TEMP 98.4; O2SAT 93
[2017-01-17] MEDS: ENOXAPARIN SODIUM 40 MG/0.4 ML SYRINGE SQ SCH (22:25)
[2017-01-18] VITALS (7 sets, daily range): BP systolic 121–148; BP diastolic 77–92; PULSE 68–96; RESP 16–20; TEMP 97.5–98.6; O2SAT 93–98
[2017-01-18] MEDS: CHLORHEXIDINE GLUCONATE 2 % 1 PACK (2 CLOTHS) TOP SCH (04:00)
[2017-01-18] MEDS: LABETALOL HCL 100 MG TAB PO SCH ×4 (04:34→21:05)
[2017-01-18] MEDS: NYSTATIN 100,000 U/GM PWD 15 GM BTL TOPICAL SCH ×3 (09:00→18:36)
[2017-01-18] MEDS: ARTIFICIAL TEARS OPTH SOLN 15 ML BTL EACH EYE SCH ×3 (09:00→18:00)
[2017-01-18] MEDS: amLODIPine BESYLATE 5 MG TAB PO SCH (09:04)
[2017-01-18] MEDS: QUEtiapine FUMARATE 25 MG TAB PO SCH ×4 (09:04→21:04)
[2017-01-18] MEDS: PANTOPRAZOLE SOD 40 MG DELAYED RELEASE TAB PO SCH (09:04)
[2017-01-18] MEDS: LACTOBACILLUS ACIDOPHILUS TAB PO SCH ×3 (09:04→21:05)
[2017-01-18] MEDS: PRAVASTATIN SOD 40 MG TAB PO SCH (09:04)
[2017-01-18] MEDS: POTASSIUM CHLORIDE 25 MEQ EFFERVESCENT TAB NG SCH ×3 (09:09→21:05)
--- NOTE | 2017-01-18 11:43 | HHI.PR ---
Subjective Remarks Follow-up for intracranial hemorrhage, basilar tip aneurysm. Patient seen and examined, sitting up at nursing station. Patient is displaying more episodes of increasing confusion, paranoia that is close by and has been more difficult to reorient and calm down. Per nursing staff these episodes are intermittent but now increasing in frequency. Denies any new acute complaints overnight. VSS. Afebrile. Eating well. Positive BM. Ambulating well. Objective Vitals Vital Signs Date Time Temp Pulse Resp B/P Pulse Ox O2 Delivery O2 Flow Rate FiO2 01/18/17 08:00 98.3 69 16 137/92 93 01/18/17 04:00 97.6 68 16 137/84 96 01/18/17 00:00 97.9 84 18 130/83 98 01/17/17 20:46 98.4 91 19 121/67 93 01/17/17 16:00 97.6 87 17 105/74 94 01/17/17 12:00 97.8 88 17 126/85 94 I/O 01/17/17 01/17/17 01/17/17 01/18/17 01/18/17 01/18/17 07:00 15:00 23:00 07:00 15:00 23:00 Intake Total 120 ml 720 ml Balance 120 ml 720 ml Intake Oral 120 ml 720 ml # Voids 2 6 2 2 # Bowel Movements 0 2 1 0 Result Diagram: 01/15/17 0711 Imaging Last Impressions Head CT 12/09/16 0000 Signed Impressions: Service Date/Time: Friday, December 09, 2016 17:36 - CONCLUSION: 1. Right ventriculostomy tube remains in place with decrease in ventricular size since November 24. There is some encephalomalacia around the shunt and a probable small infarct in the left basal ganglia. No new hemorrhage or shift. Tip Harris MD Abdomen X-Ray 11/28/16 0000 Signed Impressions: Service Date/Time: Monday, November 28, 2016 16:00 - CONCLUSION: 1. No evidence of bowel obstruction, ileus or perforation. 2. Degenerative changes and scoliosis of the thoracolumbar spine. 3. Degenerative changes involving the hip joints bilaterally. Juan Worley MD Chest X-Ray 11/01/16 0600 Signed Impressions: Service Date/Time: Tuesday, November 01, 2016 04:37 - CONCLUSION: 1. No acute cardiopulmonary disease. Trevin De León MD Transcranial Doppler Study Complete 10/26/16 0700 Signed Impressions: Service Date/Time: Wednesday, October 26, 2016 08:20 - CONCLUSION: Minimal interval improvement with no evidence for vasospasm. Christian Song MD FACR Neck CTA 10/19/16 0000 Signed Impressions: Service Date/Time: Wednesday, October 19, 2016 14:19 - CONCLUSION: Negative for dissection or significant stenosis. Christian Song MD FACR Head CTA 10/19/16 0000 Signed Impressions: Service Date/Time: Wednesday, October 19, 2016 14:19 - CONCLUSION: 1. Interval development of significant vasospasm in the left MCA and SRI territories. 2. Mild vasospasm in the basilar artery.. Gume cMkeon MD Cerebral Arteriogram 10/19/16 0000 Signed Impressions: Service Date/Time: Wednesday, October 19, 2016 16:06 - CONCLUSION: 1. Vasospasm in the left MCA and SRI territories 2. Spasmolytic infusion, left internal carotid artery as above.. 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 Gume Mckeon MD Pelvis X-Ray 10/05/16109 Signed Impressions: Service Date/Time: Wednesday, October 05, 2016 01:22 - CONCLUSION: Unremarkable examination of the pelvis. Ruben Acuña Jr., MD Chest CT 10/05/16109 Signed Impressions: Service Date/Time: Wednesday, October 05, 2016 01:46 - CONCLUSION: 1. No acute intrathoracic abnormality. 2. Bibasilar atelectasis. 3. Cardiomegaly. 4. Prior granulomatous disease. Ruben Acuña Jr., MD Cervical Spine CT 10/05/16109 Signed Impressions: Service Date/Time: Wednesday, October 05, 2016 01:40 - CONCLUSION: 1. No fracture or dislocation. 2. Multilevel degenerative changes. Ruben Acuña Jr., MD Abdomen/Pelvis CT 10/05/16109 Signed Impressions: Service Date/Time: Wednesday, October 05, 2016 01:46 - CONCLUSION: 1. No acute trauma. 2. Rounded area of decreased density involving the pancreatic head. I cannot completely exclude pancreatic head mass. At some point MRI of the pancreas is suggested to further evaluate. 3. Focal area of poor enhancement involving the left kidney. This may relate to an area of parenchymal scarring. I cannot completely exclude a mass. This can be further assessed with MRI as well. Ruben Acuña Jr., MD Objective Remarks GENERAL: Well-nourished, well-developed male patient, in no apparent distress sitting up in chair at nursing station. Confused. SKIN: No rash. Warm and dry. HEENT: Pupils equal round and reactive. Normocephalic. Extraocular motions intact. No scleral icterus. No injection or drainage. NECK: Trachea midline. Supple. CARDIOVASCULAR: RRR. No murmur appreciated. RESPIRATORY: Clear to auscultation. Breath sounds equal bilaterally. No wheezes , rales, or rhonchi. GASTROINTESTINAL: Abdomen soft, non-tender, nondistended. No guarding. MUSCULOSKELETAL: Extremities without clubbing, cyanosis, or edema. NEUROLOGICAL: Awake and alert. Moves all 4 extremities, equal no weakness noted. 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 ICD Code: I60.8 Status: Acute (2) Hypertension ICD Code: I10 Status: Chronic (3) Major neurocognitive disorder due to vascular disease, without behavioral disturbance, severe ICD Code: F01.50 Status: Acute (4) Septic shock ICD Code: A41.9 Status: Resolved (5) Hydrocephalus ICD Code: G91.9 Status: Acute (6) Intracranial hemorrhage ICD Code: I62.9 Status: Acute (7) Major neurocognitive disorder as late effect of traumatic brain injury with behavioral disturbance ICD Code: S06.9X9S Status: Acute (8) Encephalopathy ICD Code: G93.40 Status: Acute (9) Sepsis ICD Code: A41.9 Status: Resolved (10) Pneumonia ICD Code: J18.9 Status: Acute (11) Protein-calorie malnutrition, mild ICD Code: E44.1 Status: Acute (12) Acute respiratory failure with hypoxia and hypercarbia ICD Code: J96.01 Status: Acute Assessment and Plan Mr. Nunez is a 51 year old male who was brought to the hospital as a trauma alert due to head injury after he fell in the bathroom and hit his head. Patient was unresponsive for approximately 15 minutes by the time ambulance services arrived. His mentation waxed and waned with GCS ranging from [address] head indicated subarachnoid hemorrhage, acute. Intracranial hemorrhage, status post basilar artery coiling 10/05, Status post [employer] shunt on 11/24/2016 Chronic encephalopathy Hydrocephalus - Continue Keppra. - Neurology signed off for now. Neuropsychology following patient ultimately for discharge placement and assistance with recommendations. Per neuropsych note , ongoing areas of concern include behavioral impulsivity, lack of insight and judgement. - Speech therapy recommends regular diet with thin liquids, Patient is eating well. PEG dc'd 01/08/17. - Cont PT/OT. Acute hypoxic hypercarbic respiratory failure - Tracheostomy 10/23/16, removed, old trach site healed. - Follow respiratory status Cerebral salt wasting: - Follow sodium levels, labs stable - Florinef to 0.2 mg PO q48hrs. C. difficile colitis, resolved -Completed Flagyl on 10/23 -Follow for diarrhea, denies any at this time. -Cont Lactinex Hypokalemia, resolved: Continue scheduled KCL 50 meq PO BID. Follow and replace as needed. DVT prophylaxis: SCDs, YOUSIF hose, Lovenox. Ambulation. GI prophylaxis: Protonix. Discussed with RN and Dr. James Discharge Planning Discharge planning ongoing. Issues seem to be related to finding an accepting facility as well as payor source. It was noted pt may be discharged to home, CM continues to address this possibility. Pt's is pursuing guardianship of pt, based on documents she is requesting to be completed. Pt's safety is also in question due to his cognitive status. Neuropsychological testing requested to address these issues. Last CM note: 01/16/17 3:13pm: Pt not a safe discharge. No neuropsychic recommendations noted Problem Qualifiers (1) Hypertension: Qualified Code: I10 - Essential hypertension Dariela Del Cid Jan 18, 2017 11:43
[2017-01-18] MEDS: ENOXAPARIN SODIUM 40 MG/0.4 ML SYRINGE SQ SCH ×2 (21:00→21:05)
[2017-01-19] VITALS (7 sets, daily range): BP systolic 114–139; BP diastolic 68–84; PULSE 72–105; RESP 18–20; TEMP 97.6–98.7; O2SAT 94–97
[2017-01-19] MEDS: CHLORHEXIDINE GLUCONATE 2 % 1 PACK (2 CLOTHS) TOP SCH (04:00)
[2017-01-19] MEDS: LABETALOL HCL 100 MG TAB PO SCH ×3 (04:00→20:32)
[2017-01-19 08:32] LABS: BICARBONATE 25.6 MEQ/L (21.0-32.0); CALCIUM 9.1 MG/DL (8.5-10.1); CREATININE 1.18 MG/DL (0.60-1.30)
[2017-01-19] MEDS: POTASSIUM CHLORIDE 25 MEQ EFFERVESCENT TAB NG SCH ×2 (08:42→20:30)
[2017-01-19] MEDS: PANTOPRAZOLE SOD 40 MG DELAYED RELEASE TAB PO SCH (08:43)
[2017-01-19] MEDS: amLODIPine BESYLATE 5 MG TAB PO SCH (08:43)
[2017-01-19] MEDS: PRAVASTATIN SOD 40 MG TAB PO SCH (08:43)
[2017-01-19] MEDS: NYSTATIN 100,000 U/GM PWD 15 GM BTL TOPICAL SCH ×3 (08:43→16:36)
[2017-01-19] MEDS: FLUDROCORTISONE ACETATE 0.1 MG TAB PO SCH (08:43)
[2017-01-19] MEDS: ARTIFICIAL TEARS OPTH SOLN 15 ML BTL EACH EYE SCH ×3 (08:43→16:36)
[2017-01-19] MEDS: LACTOBACILLUS ACIDOPHILUS TAB PO SCH ×2 (08:43→20:31)
[2017-01-19] MEDS: QUEtiapine FUMARATE 25 MG TAB PO SCH ×3 (08:43→20:31)
--- NOTE | 2017-01-19 11:09 | HHI.PR ---
Subjective Remarks Follow-up for intracranial hemorrhage, basilar tip aneurysm. Patient seen and examined. Patient awake and alert. Sitting at the nurse's station. Patient reports some dizziness with standing. Denies any other complaints. Denies any headaches. No fever or chills. No chest pain or SOB. Eating well. No N/V or abdominal pain. Objective Vitals Vital Signs Date Time Temp Pulse Resp B/P Pulse Ox O2 Delivery O2 Flow Rate FiO2 01/19/17 08:00 98.6 105 20 115/72 94 01/19/17 04:50 97.9 83 20 134/83 94 01/18/17 23:59 98.6 96 18 134/84 97 01/18/17 20:17 97.6 84 20 134/88 96 01/18/17 16:00 98.5 95 16 148/92 97 01/18/17 12:00 97.5 85 16 121/77 96 I/O 01/18/17 01/18/17 01/18/17 01/19/17 01/19/17 01/19/17 06:59 14:59 22:59 06:59 14:59 22:59 Intake Total 720 ml Balance 720 ml Intake Oral 720 ml # Voids 2 4 3 # Bowel Movements 0 1 Result Diagram: 01/19/17 0733 Imaging Last Impressions Head CT 12/09/16 0000 Signed Impressions: Service Date/Time: Friday, December 09, 2016 17:36 - CONCLUSION: 1. Right ventriculostomy tube remains in place with decrease in ventricular size since November 24. There is some encephalomalacia around the shunt and a probable small infarct in the left basal ganglia. No new hemorrhage or shift. Tip Harris MD Abdomen X-Ray 11/28/16 0000 Signed Impressions: Service Date/Time: Monday, November 28, 2016 16:00 - CONCLUSION: 1. No evidence of bowel obstruction, ileus or perforation. 2. Degenerative changes and scoliosis of the thoracolumbar spine. 3. Degenerative changes involving the hip joints bilaterally. Juan Worley MD Chest X-Ray 11/01/16 0600 Signed Impressions: Service Date/Time: Tuesday, November 01, 2016 04:37 - CONCLUSION: 1. No acute cardiopulmonary disease. Trevin De León MD Transcranial Doppler Study Complete 10/26/16 0700 Signed Impressions: Service Date/Time: Wednesday, October 26, 2016 08:20 - CONCLUSION: Minimal interval improvement with no evidence for vasospasm. Christian Song MD FACR Neck CTA 10/19/16 0000 Signed Impressions: Service Date/Time: Wednesday, October 19, 2016 14:19 - CONCLUSION: Negative for dissection or significant stenosis. Christian Song MD FACR Head CTA 10/19/16 0000 Signed Impressions: Service Date/Time: Wednesday, October 19, 2016 14:19 - CONCLUSION: 1. Interval development of significant vasospasm in the left MCA and SRI territories. 2. Mild vasospasm in the basilar artery.. Gume Mckeon MD Cerebral Arteriogram 10/19/16 0000 Signed Impressions: Service Date/Time: Wednesday, October 19, 2016 16:06 - CONCLUSION: 1. Vasospasm in the left MCA and SRI territories 2. Spasmolytic infusion, left internal carotid artery as above.. 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 Gume Mckeon MD Pelvis X-Ray 10/05/16109 Signed Impressions: Service Date/Time: Wednesday, October 05, 2016 01:22 - CONCLUSION: Unremarkable examination of the pelvis. Ruben Acuña Jr., MD Chest CT 10/05/16109 Signed Impressions: Service Date/Time: Wednesday, October 05, 2016 01:46 - CONCLUSION: 1. No acute intrathoracic abnormality. 2. Bibasilar atelectasis. 3. Cardiomegaly. 4. Prior granulomatous disease. Ruben Acuña Jr., MD Cervical Spine CT 10/05/16109 Signed Impressions: Service Date/Time: Wednesday, October 05, 2016 01:40 - CONCLUSION: 1. No fracture or dislocation. 2. Multilevel degenerative changes. Ruben Acuña Jr., MD Abdomen/Pelvis CT 10/05/16109 Signed Impressions: Service Date/Time: Wednesday, October 05, 2016 01:46 - CONCLUSION: 1. No acute trauma. 2. Rounded area of decreased density involving the pancreatic head. I cannot completely exclude pancreatic head mass. At some point MRI of the pancreas is suggested to further evaluate. 3. Focal area of poor enhancement involving the left kidney. This may relate to an area of parenchymal scarring. I cannot completely exclude a mass. This can be further assessed with MRI as well. Ruben Acuña Jr., MD Objective Remarks GENERAL: Well-nourished, well-developed male patient, in no apparent distress sitting up in chair at nursing station. Awake and alert. SKIN: No rash. Warm and dry. HEENT: Normocephalic. Extraocular motions intact. No scleral icterus. No injection or drainage. MMM. NECK: Trachea midline. Supple. CARDIOVASCULAR: RRR. No murmur appreciated. RESPIRATORY: Clear to auscultation. Breath sounds equal bilaterally. No wheezes , rales, or rhonchi. GASTROINTESTINAL: Abdomen soft, non-tender, nondistended. No guarding. MUSCULOSKELETAL: Extremities without clubbing, cyanosis, or edema. NEUROLOGICAL: Awake and alert. Moves all 4 extremities. Motor and sensory function grossly intact. Procedures 10/05/16 right frontal twist drill for ventriculostomy placement 10/20/16 arterial line placement 10/23/16 bedside percutaneous tracheostomy under direct bronchoscopic visualization 10/24/16 PEG tube placement at bedside Medications and IVs Current Medications Medications (Trade) Dose Ordered Sig/Nava Route Start Time Stop Time Status Last Admin (Tylenol) 650 mg Q6H PRN PO 10/05/16 02:45 01/08/17 20:27 (Tears Naturale Opth Soln) 1 drop TID EACH EYE 10/05/16 09:00 01/18/17 18:00 (Zofran Inj) 4 mg Q6H PRN IV 10/05/16 02:45 11/27/16 23:26 Miscellaneous Information 1 Q361D XX 10/05/16 02:45 10/05/16 02:45 (Chlorhexidine 2% Cloth) Taper DAILY@04 TOP 10/05/16 04:00 10/01/17 03:59 01/02/17 04:00 (Chlorhexidine 2% Cloth) 3 pack UNSCH PRN TOP 10/05/16 02:45 (Pravachol) 40 mg DAILY PO 10/05/16 09:00 01/19/17 08:43 (Lovenox Inj) 40 mg Q24H SQ 10/23/16 21:00 01/17/17 22:25 (Trandate) 100 mg Q8H PO 11/03/16 20:00 01/18/17 04:34 (Norvasc) 5 mg DAILY PO 11/04/16 09:00 01/19/17 08:43 (Mycostatin Powder) 1 applic TID TOPICAL 11/06/16 09:00 01/18/17 18:36 (Lactinex) 1 tab Q12HR PO 11/06/16 21:00 01/19/17 08:43 (SEROquel) 25 mg BID@09,12 PO 11/07/16 09:00 01/19/17 08:43 (Colace Liq) 100 mg Q12H PRN G-TUBE 11/06/16 17:00 12/11/16 21:59 (Imodium) 2 mg UNSCH PRN PO 11/09/16 09:45 11/29/16 12:57 (Lomotil Tab) 1 tab Q6H PRN PO 11/09/16 09:45 (SEROquel) 25 mg HS PO 11/20/16 21:00 01/17/17 22:26 (Lactulose Liq) 30 ml QID PRN PO 12/09/16 13:45 (K-Lyte Cl Eff) 50 meq Q12HR NG 12/13/16 09:00 01/19/17 08:42 (Protonix) 40 mg DAILY PO 12/16/16 09:00 01/19/17 08:43 (Benadryl) 50 mg Q6H PRN PO 12/20/16 17:45 01/12/17 20:40 (Florinef) 0.2 mg Q48H PO 01/15/17 09:00 01/19/17 08:43 A/P Problem List: (1) 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 ICD Code: I60.8 Status: Acute (2) Hypertension ICD Code: I10 Status: Chronic (3) Major neurocognitive disorder due to vascular disease, without behavioral disturbance, severe ICD Code: F01.50 Status: Acute (4) Septic shock ICD Code: A41.9 Status: Resolved (5) Hydrocephalus ICD Code: G91.9 Status: Acute (6) Intracranial hemorrhage ICD Code: I62.9 Status: Acute (7) Major neurocognitive disorder as late effect of traumatic brain injury with behavioral disturbance ICD Code: S06.9X9S Status: Acute (8) Encephalopathy ICD Code: G93.40 Status: Acute (9) Sepsis ICD Code: A41.9 Status: Resolved (10) Pneumonia ICD Code: J18.9 Status: Acute (11) Protein-calorie malnutrition, mild ICD Code: E44.1 Status: Acute (12) Acute respiratory failure with hypoxia and hypercarbia ICD Code: J96.01 Status: Acute Assessment and Plan Mr. Nunez is a 51 year old male who was brought to the hospital as a trauma alert due to head injury after he fell in the bathroom and hit his head. Patient was unresponsive for approximately 15 minutes by the time ambulance services arrived. His mentation waxed and waned with GCS ranging from [address] head indicated subarachnoid hemorrhage, acute. Intracranial hemorrhage, status post basilar artery coiling 10/05, Status post [employer] shunt on 11/24/2016 Chronic encephalopathy Hydrocephalus - Continue Keppra. Obtain level. - Neurology signed off for now. Neuropsychology following patient ultimately for discharge placement and assistance with recommendations. Per neuropsych note , ongoing areas of concern include behavioral impulsivity, lack of insight and judgement. - Speech therapy recommends regular diet with thin liquids, Patient is eating well. PEG dc'd 01/08/17. - Cont PT/OT. - Continue Seroquel. - c/o postural dizziness, check orthostatic BP measurements Acute hypoxic hypercarbic respiratory failure - Tracheostomy 10/23/16, removed, old trach site healed. - Follow respiratory status Cerebral salt wasting: - Follow sodium levels, labs stable - Continue Florinef to 0.2 mg PO q48hrs. C. difficile colitis, resolved -Completed Flagyl on 10/23 -Follow for diarrhea, denies any at this time. -Cont Lactinex Hypokalemia, resolved - Continue scheduled KCL 50 meq PO BID. Follow and replace as needed. DVT prophylaxis: SCDs, YOUSIF hose, Lovenox. Ambulation. GI prophylaxis: Protonix. Discussed with RN, patient and Dr. James Discharge Planning Per last CM note 01/16/17 - patient not a safe discharge. No neuropsych recommendations noted. Problem Qualifiers (1) Hypertension: Qualified Code: I10 - Essential hypertension Debra Krause Jan 19, 2017 11:09
[2017-01-19] MEDS: ENOXAPARIN SODIUM 40 MG/0.4 ML SYRINGE SQ SCH (20:30)
[2017-01-19] MEDS ORDERED: HALOPERIDOL LACTATE 5 MG/ML AMP IM ONE (22:00)
[2017-01-20] VITALS: BP 127/78; PULSE 89; RESP 20; TEMP 97.6; O2SAT 92
[2017-01-20 04:00] VITALS: BP 122/83; PULSE 66; RESP 20; TEMP 97.5; O2SAT 94
[2017-01-20] MEDS: CHLORHEXIDINE GLUCONATE 2 % 1 PACK (2 CLOTHS) TOP SCH (04:00)
[2017-01-20] MEDS: LABETALOL HCL 100 MG TAB PO SCH ×3 (04:00→20:18)
[2017-01-20 08:20] VITALS: BP 144/89; PULSE 63; RESP 18; TEMP 97.8; O2SAT 98
--- NOTE | 2017-01-20 08:28 | HHI.PR ---
Subjective Remarks Follow-up for intracranial hemorrhage, basilar tip aneurysm. Patient seen and examined. Patient awake and alert. C/O some left lower abdominal pain. Denies any fever or chills. Denies any dysuria, hematuria or urinary difficulties. Reports BM last night that was normal. Denies any blood in the stool. Patient in four point restraints. Discussed with nursing staff, patient became very agitated overnight and aggressive with nursing staff. Given Haldol and placed in restraints. Patient is afebrile. VSS. Objective Vitals Vital Signs Date Time Temp Pulse Resp B/P Pulse Ox O2 Delivery O2 Flow Rate FiO2 01/20/17 08:20 97.8 63 18 144/89 98 01/20/17 04:00 97.5 66 20 122/83 94 01/20/17 00:00 97.6 89 20 127/78 92 01/19/17 20:00 97.9 81 18 139/73 95 01/19/17 15:36 114/68 01/19/17 15:35 130/82 01/19/17 15:34 97.6 72 20 135/77 97 01/19/17 12:06 98.7 98 19 122/84 97 I/O 01/19/17 01/19/17 01/19/17 01/20/17 01/20/17 01/20/17 07:00 15:00 23:00 07:00 15:00 23:00 Intake Total 600 ml Balance 600 ml Intake Oral 600 ml # Voids 3 3 2 2 # Bowel Movements 2 Result Diagram: 01/19/17 0733 Imaging Last Impressions Head CT 12/09/16 0000 Signed Impressions: Service Date/Time: Friday, December 09, 2016 17:36 - CONCLUSION: 1. Right ventriculostomy tube remains in place with decrease in ventricular size since November 24. There is some encephalomalacia around the shunt and a probable small infarct in the left basal ganglia. No new hemorrhage or shift. Tip Harris MD Abdomen X-Ray 11/28/16 0000 Signed Impressions: Service Date/Time: Monday, November 28, 2016 16:00 - CONCLUSION: 1. No evidence of bowel obstruction, ileus or perforation. 2. Degenerative changes and scoliosis of the thoracolumbar spine. 3. Degenerative changes involving the hip joints bilaterally. Juan Worley MD Chest X-Ray 11/01/16 0600 Signed Impressions: Service Date/Time: Tuesday, November 01, 2016 04:37 - CONCLUSION: 1. No acute cardiopulmonary disease. Trevin De León MD Transcranial Doppler Study Complete 10/26/16 0700 Signed Impressions: Service Date/Time: Wednesday, October 26, 2016 08:20 - CONCLUSION: Minimal interval improvement with no evidence for vasospasm. Christian Song MD FACR Neck CTA 10/19/16 0000 Signed Impressions: Service Date/Time: Wednesday, October 19, 2016 14:19 - CONCLUSION: Negative for dissection or significant stenosis. Christian Song MD FACR Head CTA 10/19/16 0000 Signed Impressions: Service Date/Time: Wednesday, October 19, 2016 14:19 - CONCLUSION: 1. Interval development of significant vasospasm in the left MCA and SRI territories. 2. Mild vasospasm in the basilar artery.. Gume Mckeon MD Cerebral Arteriogram 10/19/16 0000 Signed Impressions: Service Date/Time: Wednesday, October 19, 2016 16:06 - CONCLUSION: 1. Vasospasm in the left MCA and SRI territories 2. Spasmolytic infusion, left internal carotid artery as above.. 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 Gume Mckeon MD Pelvis X-Ray 10/05/16 011 Signed Impressions: Service Date/Time: Wednesday, October 05, 2016 01:22 - CONCLUSION: Unremarkable examination of the pelvis. Ruben Acuña Jr., MD Chest CT 10/05/16109 Signed Impressions: Service Date/Time: Wednesday, October 05, 2016 01:46 - CONCLUSION: 1. No acute intrathoracic abnormality. 2. Bibasilar atelectasis. 3. Cardiomegaly. 4. Prior granulomatous disease. Ruben Acuña Jr., MD Cervical Spine CT 10/05/16 011 Signed Impressions: Service Date/Time: Wednesday, October 05, 2016 01:40 - CONCLUSION: 1. No fracture or dislocation. 2. Multilevel degenerative changes. Ruben Acuña Jr., MD Abdomen/Pelvis CT 10/05/16 0110 Signed Impressions: Service Date/Time: Wednesday, October 05, 2016 01:46 - CONCLUSION: 1. No acute trauma. 2. Rounded area of decreased density involving the pancreatic head. I cannot completely exclude pancreatic head mass. At some point MRI of the pancreas is suggested to further evaluate. 3. Focal area of poor enhancement involving the left kidney. This may relate to an area of parenchymal scarring. I cannot completely exclude a mass. This can be further assessed with MRI as well. Ruben Acuña Jr., MD Objective Remarks GENERAL: Well-nourished, well-developed male patient, in no apparent distress. Awake and alert. In 4 point restraints. SKIN: No rash. Warm and dry. HEENT: Normocephalic. Extraocular motions intact. No scleral icterus. No injection or drainage. MMM. NECK: Trachea midline. Supple. CARDIOVASCULAR: RRR. No murmur appreciated. RESPIRATORY: Clear to auscultation. Breath sounds equal bilaterally. No wheezes , rales, or rhonchi. GASTROINTESTINAL: Abdomen soft,nondistended. (+)tender to palpation over LLQ and suprapubic area. No rigidity. MUSCULOSKELETAL: Extremities without clubbing, cyanosis, or edema. NEUROLOGICAL: Awake and alert. Oriented to self only. Moves all 4 extremities. Motor and sensory function grossly intact. Procedures 10/05/16 right frontal twist drill for ventriculostomy placement 10/20/16 arterial line placement 10/23/16 bedside percutaneous tracheostomy under direct bronchoscopic visualization 10/24/16 PEG tube placement at bedside Medications and IVs Current Medications Medications (Trade) Dose Ordered Sig/Nava Route Start Time Stop Time Status Last Admin (Tylenol) 650 mg Q6H PRN PO 10/05/16 02:45 01/08/17 20:27 (Tears Naturale Opth Soln) 1 drop TID EACH EYE 10/05/16 09:00 01/18/17 18:00 (Zofran Inj) 4 mg Q6H PRN IV 10/05/16 02:45 11/27/16 23:26 Miscellaneous Information 1 Q361D XX 10/05/16 02:45 10/05/16 02:45 (Chlorhexidine 2% Cloth) Taper DAILY@04 TOP 10/05/16 04:00 10/01/17 03:59 01/02/17 04:00 (Chlorhexidine 2% Cloth) 3 pack UNSCH PRN TOP 10/05/16 02:45 (Pravachol) 40 mg DAILY PO 10/05/16 09:00 01/19/17 08:43 (Lovenox Inj) 40 mg Q24H SQ 10/23/16 21:00 01/19/17 20:30 (Trandate) 100 mg Q8H PO 11/03/16 20:00 01/19/17 20:32 (Norvasc) 5 mg DAILY PO 11/04/16 09:00 01/19/17 08:43 (Mycostatin Powder) 1 applic TID TOPICAL 11/06/16 09:00 01/18/17 18:36 (Lactinex) 1 tab Q12HR PO 11/06/16 21:00 01/19/17 20:31 (SEROquel) 25 mg BID@09,12 PO 11/07/16 09:00 01/19/17 11:25 (Colace Liq) 100 mg Q12H PRN G-TUBE 11/06/16 17:00 12/11/16 21:59 (Imodium) 2 mg UNSCH PRN PO 11/09/16 09:45 11/29/16 12:57 (Lomotil Tab) 1 tab Q6H PRN PO 11/09/16 09:45 (Lactulose Liq) 30 ml QID PRN PO 12/09/16 13:45 (K-Lyte Cl Eff) 50 meq Q12HR NG 12/13/16 09:00 01/19/17 20:30 (Protonix) 40 mg DAILY PO 12/16/16 09:00 01/19/17 08:43 (Benadryl) 50 mg Q6H PRN PO 12/20/16 17:45 01/12/17 20:40 (Florinef) 0.2 mg Q48H PO 01/15/17 09:00 01/19/17 08:43 (SEROquel) 50 mg HS PO 01/19/17 21:00 01/19/17 20:31 A/P Problem List: (1) 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 ICD Code: I60.8 Status: Acute (2) Hypertension ICD Code: I10 Status: Chronic (3) Major neurocognitive disorder due to vascular disease, without behavioral disturbance, severe ICD Code: F01.50 Status: Acute (4) Septic shock ICD Code: A41.9 Status: Resolved (5) Hydrocephalus ICD Code: G91.9 Status: Acute (6) Intracranial hemorrhage ICD Code: I62.9 Status: Acute (7) Major neurocognitive disorder as late effect of traumatic brain injury with behavioral disturbance ICD Code: S06.9X9S Status: Acute (8) Encephalopathy ICD Code: G93.40 Status: Acute (9) Sepsis ICD Code: A41.9 Status: Resolved (10) Pneumonia ICD Code: J18.9 Status: Acute (11) Protein-calorie malnutrition, mild ICD Code: E44.1 Status: Acute (12) Acute respiratory failure with hypoxia and hypercarbia ICD Code: J96.01 Status: Acute Assessment and Plan Mr. Nunez is a 51 year old male who was brought to the hospital as a trauma alert due to head injury after he fell in the bathroom and hit his head. Patient was unresponsive for approximately 15 minutes by the time ambulance services arrived. His mentation waxed and waned with GCS ranging from [address] head indicated subarachnoid hemorrhage, acute. Intracranial hemorrhage, status post basilar artery coiling 10/05, Status post JIG AND FIXTURE BUILDER APPRENTICE shunt on 11/24/2016 Chronic encephalopathy Hydrocephalus Cortical blindness - Continue Keppra. Level pending. - Neurology signed off for now. Neuropsychology following patient ultimately for discharge placement and assistance with recommendations. Per neuropsych note , ongoing areas of concern include behavioral impulsivity, lack of insight and judgement. - Speech therapy recommends regular diet with thin liquids, Patient is eating well. PEG dc'd 01/08/17. - Cont PT/OT. - Continue Seroquel. Dose increased to 50mg qhs. Increased agitation and some aggression with nursing staff last night. Given Haldol and placed in restraints. Allow time for increase Seroquel dose to take effect. - c/o postural dizziness, no e/o orthostasis on BP checks LLQ and suprapubic abdominal pain - uncertain etiology. Good BMs. Patient is afebrile. - UA, KUB and CBC ordered. Will follow up on results. Acute hypoxic hypercarbic respiratory failure, resolved - Tracheostomy 10/23/16, removed, old trach site healed. - Follow respiratory status Cerebral salt wasting - Follow sodium levels, labs stable. Na 143 on 10/20/16 - Continue Florinef to 0.2 mg PO q48hrs. C. difficile colitis, resolved -Completed Flagyl on 10/23 -Follow for diarrhea, denies any at this time. -Cont Lactinex DVT prophylaxis: SCDs, YOUSIF hose, Lovenox. Ambulation. GI prophylaxis: Protonix. Discussed with RN, patient and Dr. James Discharge Planning Per last CM note 01/16/17 - patient not a safe discharge. No neuropsych recommendations noted. Problem Qualifiers (1) Hypertension: Qualified Code: I10 - Essential hypertension Debra Krause Jan 20, 2017 08:28
[2017-01-20] MEDS: NYSTATIN 100,000 U/GM PWD 15 GM BTL TOPICAL SCH ×3 (09:00→16:42)
[2017-01-20] MEDS: ARTIFICIAL TEARS OPTH SOLN 15 ML BTL EACH EYE SCH ×3 (09:00→16:42)
[2017-01-20] MEDS: amLODIPine BESYLATE 5 MG TAB PO SCH (09:40)
[2017-01-20] MEDS: PANTOPRAZOLE SOD 40 MG DELAYED RELEASE TAB PO SCH (09:40)
[2017-01-20] MEDS: POTASSIUM CHLORIDE 25 MEQ EFFERVESCENT TAB NG SCH ×2 (09:40→20:19)
[2017-01-20] MEDS: LACTOBACILLUS ACIDOPHILUS TAB PO SCH ×2 (09:40→20:18)
[2017-01-20] MEDS: PRAVASTATIN SOD 40 MG TAB PO SCH (09:40)
[2017-01-20] MEDS: QUEtiapine FUMARATE 25 MG TAB PO SCH ×3 (09:40→20:18)
[2017-01-20 09:55] LABS: BILIRUBIN, URINE NEG (NEG); BLOOD, URINE NEG (NEG); GLUCOSE,URINE NEG (NEG); KETONE, URINE NEG (NEG); MUCUS URINE FEW /lpf (OCC); NITRITE,URINE NEG (NEG); URINE COLOR LIGHT-YELLOW (YELLW/STRAW); URINE LEUKOCYTE ESTERASE NEG (NEG)
[2017-01-20 11:37] LABS: AUTOMATED NEUTROPHIL # 3.9 TH/MM3 (1.8-7.7); BASOPHIL # 0.1 TH/MM3 (0-0.2); BASOPHIL % 1.3 % (0.0-2.0); EOSINOPHIL # 0.3 TH/MM3 (0-0.4); EOSINOPHIL % 5.2 % (0.0-4.0); HEMATOCRIT 39.4 % (39.0-51.0); HEMOGLOBIN 13.2 GM/DL (13.0-17.0); LYMPH % 22.6 % (9.0-44.0); LYMPHOCYTE # 1.4 TH/MM3 (1.0-4.8); MEAN CELL VOLUME 87.7 FL (80.0-100.0); MEAN CORPUSCULAR HEMOGLOBIN 29.4 PG (27.0-34.0); MEAN CORPUSCULAR HGB CONC 33.5 % (32.0-36.0); MEAN PLATELET VOLUME 9.4 FL (7.0-11.0); MONO % 8.4 % (0.0-8.0); MONOCYTE # 0.5 TH/MM3 (0-0.9); NEUT % 62.5 % (16.0-70.0); PLATELET COUNT 185 TH/MM3 (150-450); RED BLOOD COUNT 4.49 MIL/MM3 (4.50-5.90); RED CELL DISTRIBUTION WIDTH 14.6 % (11.6-17.2); WHITE BLOOD COUNT 6.2 TH/MM3 (4.0-11.0)
[2017-01-20 12:07] VITALS: BP 118/80; PULSE 86; RESP 18; TEMP 97.8; O2SAT 95
--- NOTE | 2017-01-20 14:27 | PD.HHIRCNE ---
Patient History Record/History Review Reason for Referral: The patient is a 51 year old unknown handed male status post traumatic brain injury secondary to a fall on 10/05/2016. He was found in the bathroom, was unresponsive for a time but had a GCS of 14 when EMS arrives with waxing and waning presentation. He was followed for a time while he was in the ICU but was discharged from trauma service. He was referred for follow-up neurobehavioral status examination to assess cognitive, behavioral and emotional aspects of the injury and to provide treatment recommendations most recently, given his clinical presentation and concerns that he is having visual hallucinations. While on the 5th floor unit, he was observed over several days and lengthy discussions with RN/HOT STRIP MILL INSPECTOR occurred. Neuropsych Precautions: To be determined. Past Surgical/Medical History Past Surgery: No Major surgery in last 100 days: Yes Hx of Neuro Prob: Yes Hx Seizures: No Cephalgia (Headaches): No Hx Migraines: Yes Hx Head Injury: No Hx Falls: Yes (THIS ADMISSION) Hx Cerebrovascular Accident: Yes (TIA IN THE PAST) Hx Dizziness: No Hx Numbness: No Hx of Musculoskeletal Pro: No Hx of Cardiovascular Prob: Yes Hypertension (High Blood Press: Yes Hx Clotting Problems: No Venous Thromboembolism Present: No Hx Chest Pain: No Hx Lightheadedness: No Hx Congestive Heart Failure: No Syncope (Fainting): No Hx of Respiratory Problem: No Hx of GI Problems: Yes (PANCREATITIS) Hx Heartburn: No Hx Gastroesophageal Reflux: No Hx Hiatal Hernia: No Hx Ulcer: No Hx Liver Disease: No Hx Gallbladder Disease: No Hx Inflammatory Bowel Disease: No Hx of Problems: No Hx of Immuno Disor: No Hx of Endocrine Problems: No Hx of Eye Probl: No Hx Psychiatric Problems: No Hx Blood Dyscrasias: No Hx of Body/Medical Devices: No Blood Transfusion History Will receive Blood /Blood prod: Yes Hx Blood Transfusions: No Medication Active Medications Haloperidol Lactate (Haldol Inj) 5 mg ONCE ONCE IM Last administered on 22:05; Admin Dose 5 MG; Start 01/19/17 at 22:00; Stop 01/19/17 at 22:01; Status DC Quetiapine Fumarate (SEROquel) 50 mg HS PO Last administered on 01/19/17 20:31 ; Admin Dose 50 MG; Start 01/19/17 at 21:00 Mental Status Assessment Orientation: oriented to Self, disoriented to Place, disoriented to Time, disoriented to Situation Mental Status: Impaired: Thought processing, Language/Interactions, Attention, Learning/Memory, Problem-Solving, Visuospatial/Construction, Self-regulation, Other Observation The patient is alert and oriented only to person, not place, time or circumstance. His attentional skills are impaired for complex tasks, and he demonstrates minimal carryover of information. He does engage in spontaneous conversation, with normal prosody, grammar, articulation, volume and rate. No dysnomic or paraphasic errors are noted in his speech. He is unable to name common objects presented to him 2T visual disturbance, although he is able to discern and count fingers presented in his visual field. His comprehension for basic commands is intact. His complex reasoning skills and abstraction abilities are impaired. He demonstrated impaired insight and awareness and he demonstrated impaired judgment. Impression Major neurocognitive disorder Adjustment/Coping Assessment Adjustment/Coping: None: Depression, Anxiety, Pain, Apathy, Severe: Awareness , Insight Observation In terms of emotional functioning, the patient demonstrated no signs of agitation, impulsivity, or disinhibition, however it is reported that he has become agitated at times, specifically at night. There were no signs of a formal thought disorder or psychosis. He denied feelings of depression and anxiety. He was specifically asked whether he felt suicidal or homicidal, and he reported that he did not. He appears well motivated to complete this evaluation. Furthermore, X did not manifest any overt signs of psychotic thought processes, although his thought processes were clearly disorganized. His thought content was free from suicidal, homicidal and paranoid ideation, and thought processes were characterized as tangential and concrete. He manifested no evidence of perceptual abnormalities as characterized by psychiatric qualifications, although he is clearly misperceiving visual perceptions. His mood was euthymic, and his affect was stable and appropriate. LTG Status: Deferred STG Status: Deferred Team Members: Neuropsychologist Behavior Assessment Treatment Engagement: No effort Observation The patient becomes increasingly restless and agitated at night, as he reacted to misperceptions due to cortical blindness and compromised neurocognitive functioning. LTG - Status: Deferred STG Status: Deferred Team Members: Neuropsychologist Diagnosis/Discharge Plan Impression This patient has suffered a significant traumatic brain injury secondary to a fall on 10/05/2016. 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 A consequence of this is that he is misperceiving objects in his environment, and his altered cognition is "filling in the gaps." Diagnosis: (1) Major neurocognitive disorder due to vascular disease, without behavioral disturbance, severe Status: Acute (2) Cortical blindness Status: Acute [facility] Level: V:Confused-non agitated Maximizing acute care outcome It is recommended that the patient be monitored for emergent behavioral impulsivity as the medical condition evolves. This patients neuropathological challenges may limit their rehabilitation potential going forward, and these challenges will require specialized therapeutic skills to maximize outcome. Pharmacological management of his recovery from his brain injury is recommended , unless medically contraindicated. Discharge Planning Anticipated Problems Ongoing areas of concern will include behavioral impulsivity, lack of insight and judgment, which is expected to improve with time and treatment. Presently , the patient is following commands. Additional problems will be related to his cortical blindness, which is unlikely to improve. Treatment Plan This clinician will continue to follow with you throughout the course of this patients acute care treatment, and I will be available to meet with the patient s family/support system to facilitate their understanding and the ongoing care of their family member. The goals of neuropsychological intervention shall be both educational and supportive to the family/support system as is deemed clinically appropriate. Discharge Needs To be determined. Thank you Thank you for the opportunity to assist in this patients care. Jeremy Workman, Ph.D., ABPP Board Certified in Clinical Neuropsychology [employer] [employer] [place] Licensed Psychologist #[id number] Jeremy Workman PhD Jan 20, 2017 14:27
[2017-01-20 15:21] VITALS: BP 105/68; PULSE 95; RESP 18; TEMP 98.1; O2SAT 96
--- NOTE | 2017-01-20 17:20 | RADRPT ---
EXAM DATE/TIME: 01/20/2017 10:46 [facility] COMPARISON: ABDOMEN KUB ONLY, November 28, 2016, 16:00. INDICATIONS : Abdominal pain. MEDICAL HISTORY : Hypertension. Pancreatitis. TIA. Subarachnoid hemorrhage. SURGICAL HISTORY : Ventriculostomy clamp. Ventriculostomy drain. ENCOUNTER: Subsequent ACUITY: 4 - 6 months PAIN SCORE: 0/10 LOCATION: abdomen FINDINGS: 2 supine frontal views of the abdomen demonstrate air within bowel in a nonobstructive pattern. MORGUE ATTENDANT sh unt tubing tip overlies the right lower quadrant. No organomegaly or abnormal calcifications are seen . Bones demonstrate no acute finding. CONCLUSION: No acute abnormality is identified. Tim Montgomery MD on January 20, 2017 at 17:18 Board Certified Radiologist. This report was verified electronically.
--- NOTE | 2017-01-20 17:20 | RADRPT ---
EXAM DATE/TIME: 01/20/2017 10:46 [facility] COMPARISON: ABDOMEN KUB ONLY, November 28, 2016, 16:00. INDICATIONS : Abdominal pain. MEDICAL HISTORY : Hypertension. Pancreatitis. TIA. Subarachnoid hemorrhage. SURGICAL HISTORY : Ventriculostomy clamp. Ventriculostomy drain. ENCOUNTER: Subsequent ACUITY: 4 - 6 months PAIN SCORE: 0/10 LOCATION: abdomen FINDINGS: 2 supine frontal views of the abdomen demonstrate air within bowel in a nonobstructive pattern. HYDRAMATIC SPECIALIST sh unt tubing tip overlies the right lower quadrant. No organomegaly or abnormal calcifications are seen . Bones demonstrate no acute finding. CONCLUSION: No acute abnormality is identified. Tim Montgomery MD on January 20, 2017 at 17:18 Board Certified Radiologist. This report was verified electronically.
--- NOTE | 2017-01-20 17:20 | RADRPT ---
EXAM DATE/TIME: 01/20/2017 10:46 [facility] COMPARISON: ABDOMEN KUB ONLY, November 28, 2016, 16:00. INDICATIONS : Abdominal pain. MEDICAL HISTORY : Hypertension. Pancreatitis. TIA. Subarachnoid hemorrhage. SURGICAL HISTORY : Ventriculostomy clamp. Ventriculostomy drain. ENCOUNTER: Subsequent ACUITY: 4 - 6 months PAIN SCORE: 0/10 LOCATION: abdomen FINDINGS: 2 supine frontal views of the abdomen demonstrate air within bowel in a nonobstructive pattern. COUNSELING CASE MANAGER sh unt tubing tip overlies the right lower quadrant. No organomegaly or abnormal calcifications are seen . Bones demonstrate no acute finding. CONCLUSION: No acute abnormality is identified. Tim Montgomery MD on January 20, 2017 at 17:18 Board Certified Radiologist. This report was verified electronically.
[2017-01-20 20:00] VITALS: BP 114/79; PULSE 94; RESP 20; TEMP 98.9; O2SAT 96
[2017-01-20] MEDS: ENOXAPARIN SODIUM 40 MG/0.4 ML SYRINGE SQ SCH (20:18)
[2017-01-21] VITALS: BP 102/56; PULSE 83; RESP 20; TEMP 98.1; O2SAT 91
[2017-01-21 04:00] VITALS: BP_SYST 111; BP_SYST 99; BP_DIAS 60; BP_DIAS 70; PULSE 81; RESP 20; TEMP 97.8; O2SAT 91
[2017-01-21] MEDS: LABETALOL HCL 100 MG TAB PO SCH ×3 (04:00→22:20)
[2017-01-21] MEDS: CHLORHEXIDINE GLUCONATE 2 % 1 PACK (2 CLOTHS) TOP SCH (04:00)
[2017-01-21 08:00] VITALS: BP 153/85; PULSE 85; RESP 20; TEMP 98; O2SAT 95
[2017-01-21] MEDS: NYSTATIN 100,000 U/GM PWD 15 GM BTL TOPICAL SCH ×3 (09:00→18:00)
[2017-01-21] MEDS: ARTIFICIAL TEARS OPTH SOLN 15 ML BTL EACH EYE SCH ×3 (09:00→18:00)
[2017-01-21] MEDS: PANTOPRAZOLE SOD 40 MG DELAYED RELEASE TAB PO SCH (09:08)
[2017-01-21] MEDS: PRAVASTATIN SOD 40 MG TAB PO SCH (09:08)
[2017-01-21] MEDS: LACTOBACILLUS ACIDOPHILUS TAB PO SCH ×2 (09:08→22:17)
[2017-01-21] MEDS: POTASSIUM CHLORIDE 25 MEQ EFFERVESCENT TAB NG SCH ×2 (09:08→22:17)
[2017-01-21] MEDS: FLUDROCORTISONE ACETATE 0.1 MG TAB PO SCH (09:09)
[2017-01-21] MEDS: QUEtiapine FUMARATE 25 MG TAB PO SCH ×3 (09:10→22:17)
[2017-01-21] MEDS: amLODIPine BESYLATE 5 MG TAB PO SCH (09:10)
[2017-01-21 12:00] VITALS: BP 110/55; PULSE 78; RESP 20; TEMP 97.6; O2SAT 93
[2017-01-21 16:00] VITALS: BP 132/75; PULSE 87; RESP 16; TEMP 98; O2SAT 96
--- NOTE | 2017-01-21 16:41 | HHI.PR ---
Subjective Remarks Follow-up for intracranial hemorrhage, basilar tip aneurysm. Patient seen and examined. Sitting up in recliner chair at nursing station. No new acute complaints. Restraints are off. Patient calm, and pleasantly confused. VSS. Afebrile. Positive BM. Objective Vitals Vital Signs Date Time Temp Pulse Resp B/P Pulse Ox O2 Delivery O2 Flow Rate FiO2 01/21/17 12:00 97.6 78 20 110/55 93 01/21/17 08:00 98.0 85 20 153/85 95 01/21/17 04:00 97.8 81 20 99/60 91 01/21/17 00:00 98.1 83 20 102/56 91 01/20/17 20:00 98.9 94 20 114/79 96 I/O 01/20/17 01/20/17 01/20/17 01/21/17 01/21/17 01/21/17 07:00 15:00 23:00 07:00 15:00 23:00 # Voids 2 2 # Bowel Movements 1 Result Diagram: 01/20/17 1116 01/19/17 0733 Imaging Last Impressions Abdomen X-Ray 01/20/17 0000 Signed Impressions: Service Date/Time: Friday, January 20, 2017 10:46 - CONCLUSION: No acute abnormality is identified. Tim Montgomery MD Head CT 12/09/16 0000 Signed Impressions: Service Date/Time: Friday, December 09, 2016 17:36 - CONCLUSION: 1. Right ventriculostomy tube remains in place with decrease in ventricular size since November 24. There is some encephalomalacia around the shunt and a probable small infarct in the left basal ganglia. No new hemorrhage or shift. Tip Harris MD Chest X-Ray 11/01/16 0600 Signed Impressions: Service Date/Time: Tuesday, November 01, 2016 04:37 - CONCLUSION: 1. No acute cardiopulmonary disease. Trevin De León MD Transcranial Doppler Study Complete 10/26/16 0700 Signed Impressions: Service Date/Time: Wednesday, October 26, 2016 08:20 - CONCLUSION: Minimal interval improvement with no evidence for vasospasm. Christian Song MD FACR Neck CTA 10/19/16 0000 Signed Impressions: Service Date/Time: Wednesday, October 19, 2016 14:19 - CONCLUSION: Negative for dissection or significant stenosis. Christian Song MD FACR Head CTA 10/19/16 0000 Signed Impressions: Service Date/Time: Wednesday, October 19, 2016 14:19 - CONCLUSION: 1. Interval development of significant vasospasm in the left MCA and SRI territories. 2. Mild vasospasm in the basilar artery.. Gume Mckeon MD Cerebral Arteriogram 10/19/16 0000 Signed Impressions: Service Date/Time: Wednesday, October 19, 2016 16:06 - CONCLUSION: 1. Vasospasm in the left MCA and SRI territories 2. Spasmolytic infusion, left internal carotid artery as above.. 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 Gume Mckeon MD Pelvis X-Ray 10/05/16109 Signed Impressions: Service Date/Time: Wednesday, October 05, 2016 01:22 - CONCLUSION: Unremarkable examination of the pelvis. Ruben Acuña Jr., MD Chest CT 10/05/16109 Signed Impressions: Service Date/Time: Wednesday, October 05, 2016 01:46 - CONCLUSION: 1. No acute intrathoracic abnormality. 2. Bibasilar atelectasis. 3. Cardiomegaly. 4. Prior granulomatous disease. Ruben Acuña Jr., MD Cervical Spine CT 10/05/16109 Signed Impressions: Service Date/Time: Wednesday, October 05, 2016 01:40 - CONCLUSION: 1. No fracture or dislocation. 2. Multilevel degenerative changes. Ruben Acuña Jr., MD Abdomen/Pelvis CT 10/05/16109 Signed Impressions: Service Date/Time: Wednesday, October 05, 2016 01:46 - CONCLUSION: 1. No acute trauma. 2. Rounded area of decreased density involving the pancreatic head. I cannot completely exclude pancreatic head mass. At some point MRI of the pancreas is suggested to further evaluate. 3. Focal area of poor enhancement involving the left kidney. This may relate to an area of parenchymal scarring. I cannot completely exclude a mass. This can be further assessed with MRI as well. Ruben Acuña Jr., MD Objective Remarks GENERAL: Well-nourished, well-developed male patient, in no apparent distress sitting up in chair at nursing station. Pleasantly confused. SKIN: No rash. Warm and dry. HEENT: Pupils equal round and reactive. Normocephalic. Extraocular motions intact. No scleral icterus. No injection or drainage. NECK: Trachea midline. Supple. CARDIOVASCULAR: RRR. No murmur appreciated. RESPIRATORY: Clear to auscultation. Breath sounds equal bilaterally. No wheezes , rales, or rhonchi. GASTROINTESTINAL: Abdomen soft, non-tender, nondistended. No guarding. MUSCULOSKELETAL: Extremities without clubbing, cyanosis, or edema. NEUROLOGICAL: Awake and alert. Moves all 4 extremities, equal no weakness noted. 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 ICD Code: I60.8 Status: Acute (2) Hypertension ICD Code: I10 Status: Chronic (3) Major neurocognitive disorder due to vascular disease, without behavioral disturbance, severe ICD Code: F01.50 Status: Acute (4) Septic shock ICD Code: A41.9 Status: Resolved (5) Hydrocephalus ICD Code: G91.9 Status: Acute (6) Intracranial hemorrhage ICD Code: I62.9 Status: Acute (7) Major neurocognitive disorder as late effect of traumatic brain injury with behavioral disturbance ICD Code: S06.9X9S Status: Acute (8) Encephalopathy ICD Code: G93.40 Status: Acute (9) Sepsis ICD Code: A41.9 Status: Resolved (10) Pneumonia ICD Code: J18.9 Status: Acute (11) Protein-calorie malnutrition, mild ICD Code: E44.1 Status: Acute (12) Acute respiratory failure with hypoxia and hypercarbia ICD Code: J96.01 Status: Acute Assessment and Plan Mr. Nunez is a 51 year old male who was brought to the hospital as a trauma alert due to head injury after he fell in the bathroom and hit his head. Patient was unresponsive for approximately 15 minutes by the time ambulance services arrived. His mentation waxed and waned with GCS ranging from [address] head indicated subarachnoid hemorrhage, acute. Intracranial hemorrhage, status post basilar artery coiling 10/05, Status post HAIR SAMPLE MATCHER shunt on 11/24/2016 Chronic encephalopathy Hydrocephalus Cortical blindness - Continue Keppra. Level pending. Follow. - Neurology signed off. Neuropsychology following patient ultimately for discharge placement and assistance with recommendations. Per neuropsych note, ongoing areas of concern include behavioral impulsivity, lack of insight and judgement. - Speech therapy recommends regular diet with thin liquids, Patient is eating well. PEG dc'd 01/08/17. - Cont PT/OT. - Continue Seroquel 50mg qhs. Intermittent agitation. Allow time for increase Seroquel dose to take effect. - c/o postural dizziness, no e/o orthostasis on BP checks LLQ and suprapubic abdominal pain, resolved. - Denies any abdominal pain today. - UA negative, KUB unremarkable and CBC unremarkable. Acute hypoxic hypercarbic respiratory failure, resovled - Tracheostomy 10/23/16, removed, old trach site healed. - Follow respiratory status Cerebral salt wasting: - Follow sodium levels, labs stable - Florinef to 0.2 mg PO q48hrs. C. difficile colitis, resolved -Completed Flagyl on 10/23 -Follow for diarrhea, denies any at this time. -Cont Lactinex Hypokalemia, resolved: Continue scheduled KCL 50 meq PO BID. Follow and replace as needed. DVT prophylaxis: SCDs, YOUSIF hose, Lovenox. Ambulation. GI prophylaxis: Protonix. Discussed with RN and Dr. Cortes Discharge Planning Discharge planning ongoing. Issues seem to be related to finding an accepting facility as well as payor source. It was noted pt may be discharged to home, CM continues to address this possibility. Pt's is pursuing guardianship of pt, based on documents she is requesting to be completed. Pt's safety is also in question due to his cognitive status. Neuropsychological testing requested to address these issues. Last CM note: * 01/19/17 Patient discharge disposition unchanged. CM will continue to follow for neuropsych recommendations/ MD orders. Problem Qualifiers (1) Hypertension: Qualified Code: I10 - Essential hypertension NehemiasDarielamai HAWKINS Jan 21, 2017 16:41
[2017-01-21 20:28] VITALS: BP_SYST 124; BP_SYST 131; BP_SYST 139; BP_DIAS 71; BP_DIAS 72; BP_DIAS 75; PULSE 88; RESP 18; TEMP 98; O2SAT 95
[2017-01-21] MEDS: ENOXAPARIN SODIUM 40 MG/0.4 ML SYRINGE SQ SCH (22:16)
[2017-01-22 00:34] VITALS: BP 110/66; PULSE 80; RESP 18; TEMP 97.8; O2SAT 97
[2017-01-22] MEDS: CHLORHEXIDINE GLUCONATE 2 % 1 PACK (2 CLOTHS) TOP SCH (03:28)
[2017-01-22] MEDS: LABETALOL HCL 100 MG TAB PO SCH ×3 (03:43→21:02)
[2017-01-22 04:00] VITALS: BP 124/81; PULSE 77; RESP 16; TEMP 98.2; O2SAT 97
[2017-01-22 08:00] VITALS: BP 131/75; PULSE 73; RESP 18; TEMP 97.8; O2SAT 95
[2017-01-22] MEDS: PANTOPRAZOLE SOD 40 MG DELAYED RELEASE TAB PO SCH (08:49)
[2017-01-22] MEDS: amLODIPine BESYLATE 5 MG TAB PO SCH (08:49)
[2017-01-22] MEDS: QUEtiapine FUMARATE 25 MG TAB PO SCH ×3 (08:49→21:02)
[2017-01-22] MEDS: PRAVASTATIN SOD 40 MG TAB PO SCH (08:49)
[2017-01-22] MEDS: LACTOBACILLUS ACIDOPHILUS TAB PO SCH ×2 (08:49→21:01)
[2017-01-22] MEDS: POTASSIUM CHLORIDE 25 MEQ EFFERVESCENT TAB NG SCH ×2 (08:50→21:01)
[2017-01-22] MEDS: NYSTATIN 100,000 U/GM PWD 15 GM BTL TOPICAL SCH ×3 (08:50→17:53)
[2017-01-22] MEDS: ARTIFICIAL TEARS OPTH SOLN 15 ML BTL EACH EYE SCH ×3 (08:50→17:53)
--- NOTE | 2017-01-22 09:01 | HHI.PR ---
Subjective Remarks Follow-up for intracranial hemorrhage, basilar tip aneurysm. Patient seen and examined. Patient sleeping comfortably. Denies dizziness. with standing. Denies any headaches. No chest pain or SOB. Eating well. No N/V or abdominal pain. Spoke to bedside RN, no new acute events overnight. States less agitation and slept well all night. Objective Vitals Vital Signs Date Time Temp Pulse Resp B/P Pulse Ox O2 Delivery O2 Flow Rate FiO2 01/22/17 08:00 97.8 73 18 131/75 95 01/22/17 04:00 98.2 77 16 124/81 97 01/22/17 00:34 97.8 80 18 110/66 97 01/21/17 20:28 98.0 88 18 131/72 95 139/75 124/71 01/21/17 16:00 98.0 87 16 132/75 96 01/21/17 12:00 97.6 78 20 110/55 93 I/O 01/21/17 01/21/17 01/21/17 01/22/17 01/22/17 01/22/17 06:59 14:59 22:59 06:59 14:59 22:59 # Voids 5 # Bowel Movements 0 Result Diagram: 01/20/17 1116 01/19/17 0733 Imaging Last Impressions Abdomen X-Ray 01/20/17 0000 Signed Impressions: Service Date/Time: Friday, January 20, 2017 10:46 - CONCLUSION: No acute abnormality is identified. Tim Montgomery MD Head CT 12/09/16 0000 Signed Impressions: Service Date/Time: Friday, December 09, 2016 17:36 - CONCLUSION: 1. Right ventriculostomy tube remains in place with decrease in ventricular size since November 24. There is some encephalomalacia around the shunt and a probable small infarct in the left basal ganglia. No new hemorrhage or shift. Tip Harris MD Chest X-Ray 11/01/16 0600 Signed Impressions: Service Date/Time: Tuesday, November 01, 2016 04:37 - CONCLUSION: 1. No acute cardiopulmonary disease. Trevin De León MD Transcranial Doppler Study Complete 10/26/16 0700 Signed Impressions: Service Date/Time: Wednesday, October 26, 2016 08:20 - CONCLUSION: Minimal interval improvement with no evidence for vasospasm. Christian Song MD FACR Neck CTA 10/19/16 0000 Signed Impressions: Service Date/Time: Wednesday, October 19, 2016 14:19 - CONCLUSION: Negative for dissection or significant stenosis. Christian Song MD FACR Head CTA 10/19/16 0000 Signed Impressions: Service Date/Time: Wednesday, October 19, 2016 14:19 - CONCLUSION: 1. Interval development of significant vasospasm in the left MCA and SRI territories. 2. Mild vasospasm in the basilar artery.. Gume Mckeon MD Cerebral Arteriogram 10/19/16 0000 Signed Impressions: Service Date/Time: Wednesday, October 19, 2016 16:06 - CONCLUSION: 1. Vasospasm in the left MCA and SRI territories 2. Spasmolytic infusion, left internal carotid artery as above.. 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 Gume Mckeon MD Pelvis X-Ray 10/05/16109 Signed Impressions: Service Date/Time: Wednesday, October 05, 2016 01:22 - CONCLUSION: Unremarkable examination of the pelvis. Ruben Acuña Jr., MD Chest CT 10/05/16109 Signed Impressions: Service Date/Time: Wednesday, October 05, 2016 01:46 - CONCLUSION: 1. No acute intrathoracic abnormality. 2. Bibasilar atelectasis. 3. Cardiomegaly. 4. Prior granulomatous disease. Ruben Acuña Jr., MD Cervical Spine CT 10/05/16109 Signed Impressions: Service Date/Time: Wednesday, October 05, 2016 01:40 - CONCLUSION: 1. No fracture or dislocation. 2. Multilevel degenerative changes. Ruben Acuña Jr., MD Abdomen/Pelvis CT 10/05/16109 Signed Impressions: Service Date/Time: Wednesday, October 05, 2016 01:46 - CONCLUSION: 1. No acute trauma. 2. Rounded area of decreased density involving the pancreatic head. I cannot completely exclude pancreatic head mass. At some point MRI of the pancreas is suggested to further evaluate. 3. Focal area of poor enhancement involving the left kidney. This may relate to an area of parenchymal scarring. I cannot completely exclude a mass. This can be further assessed with MRI as well. Ruben Acuña Jr., MD Objective Remarks GENERAL: Well-nourished, well-developed male patient, resting in bed. Pleasantly confused. SKIN: No rash. Warm and dry. HEENT: Pupils equal round and reactive. Normocephalic. Extraocular motions intact. No scleral icterus. No injection or drainage. NECK: Trachea midline. Supple. CARDIOVASCULAR: RRR. No murmur appreciated. RESPIRATORY: Clear to auscultation. Breath sounds equal bilaterally. No wheezes , rales, or rhonchi. GASTROINTESTINAL: Abdomen soft, non-tender, nondistended. No guarding. MUSCULOSKELETAL: Extremities without clubbing, cyanosis, or edema. NEUROLOGICAL: Awake and alert. Moves all 4 extremities, equal no weakness noted. 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 ICD Code: I60.8 Status: Acute (2) Hypertension ICD Code: I10 Status: Chronic (3) Major neurocognitive disorder due to vascular disease, without behavioral disturbance, severe ICD Code: F01.50 Status: Acute (4) Septic shock ICD Code: A41.9 Status: Resolved (5) Hydrocephalus ICD Code: G91.9 Status: Acute (6) Intracranial hemorrhage ICD Code: I62.9 Status: Acute (7) Major neurocognitive disorder as late effect of traumatic brain injury with behavioral disturbance ICD Code: S06.9X9S Status: Acute (8) Encephalopathy ICD Code: G93.40 Status: Acute (9) Sepsis ICD Code: A41.9 Status: Resolved (10) Pneumonia ICD Code: J18.9 Status: Acute (11) Protein-calorie malnutrition, mild ICD Code: E44.1 Status: Acute (12) Acute respiratory failure with hypoxia and hypercarbia ICD Code: J96.01 Status: Acute Assessment and Plan Mr. Nunez is a 51 year old male who was brought to the hospital as a trauma alert due to head injury after he fell in the bathroom and hit his head. Patient was unresponsive for approximately 15 minutes by the time ambulance services arrived. His mentation waxed and waned with GCS ranging from [address] head indicated subarachnoid hemorrhage, acute. Intracranial hemorrhage, status post basilar artery coiling 10/05, Status post [employer] COMPLIANCE COORDINATOR shunt on 11/24/2016 Chronic encephalopathy Hydrocephalus Cortical blindness - Continue Keppra. Level <2.0. - Neurology signed off. Neuropsychology following patient ultimately for discharge placement and assistance with recommendations. Per neuropsych note, ongoing areas of concern include behavioral impulsivity, lack of insight and judgement. - Speech therapy recommends regular diet with thin liquids, Patient is eating well. PEG dc'd 01/08/17. - Cont PT/OT. - Continue Seroquel 50mg qhs. Intermittent agitation, less reported. - Orthostatic BP's documented and normal. Denies any continued dizziness. LLQ and suprapubic abdominal pain, resolved. - Denies any abdominal pain today. - UA negative, KUB unremarkable and CBC unremarkable. Acute hypoxic hypercarbic respiratory failure, resolved - Tracheostomy 10/23/16, removed, old trach site healed. - Follow respiratory status Cerebral salt wasting: - Follow sodium levels, labs stable - Florinef to 0.2 mg PO q48hrs. C. difficile colitis, resolved -Completed Flagyl on 10/23 -Follow for diarrhea, denies any at this time. -Cont Lactinex Hypokalemia, resolved: Continue scheduled KCL 50 meq PO BID. Follow and replace as needed. DVT prophylaxis: SCDs, YOUSIF hose, Lovenox. Ambulation. GI prophylaxis: Protonix. Discussed with RN and Dr. Cortes Discharge Planning Discharge planning ongoing. Issues seem to be related to finding an accepting facility as well as payor source. It was noted pt may be discharged to home, CM continues to address this possibility. Pt's is pursuing guardianship of pt, based on documents she is requesting to be completed. Pt's safety is also in question due to his cognitive status. Neuropsychological testing requested to address these issues. Last CM note: * 01/19/17 Patient discharge disposition unchanged. CM will continue to follow for neuropsych recommendations/ MD orders. Problem Qualifiers (1) Hypertension: Qualified Code: I10 - Essential hypertension NehemiasDariela seals SHRUTHI Jan 22, 2017 09:01
[2017-01-22 12:00] VITALS: BP 121/78; PULSE 77; RESP 18; TEMP 98.2; O2SAT 95
[2017-01-22 16:00] VITALS: BP 119/77; PULSE 83; RESP 20; TEMP 99; O2SAT 94
[2017-01-22] MEDS: ENOXAPARIN SODIUM 40 MG/0.4 ML SYRINGE SQ SCH (21:03)
[2017-01-22 22:28] VITALS: BP_SYST 114; BP_SYST 132; BP_SYST 136; BP_DIAS 75; BP_DIAS 82; BP_DIAS 87; PULSE 88; RESP 20; TEMP 97.7; O2SAT 97
[2017-01-23 00:38] VITALS: BP 132/82; PULSE 92; RESP 20; TEMP 98.4; O2SAT 100
[2017-01-23] MEDS: CHLORHEXIDINE GLUCONATE 2 % 1 PACK (2 CLOTHS) TOP SCH (03:15)
[2017-01-23] MEDS: LABETALOL HCL 100 MG TAB PO SCH ×3 (03:15→20:45)
[2017-01-23 05:22] VITALS: BP 124/83; PULSE 94; RESP 19; TEMP 98.3; O2SAT 98
[2017-01-23] MEDS: LACTOBACILLUS ACIDOPHILUS TAB PO SCH ×2 (08:15→20:45)
[2017-01-23] MEDS: FLUDROCORTISONE ACETATE 0.1 MG TAB PO SCH (08:15)
[2017-01-23] MEDS: QUEtiapine FUMARATE 25 MG TAB PO SCH ×3 (08:15→20:45)
[2017-01-23] MEDS: amLODIPine BESYLATE 5 MG TAB PO SCH (08:15)
[2017-01-23] MEDS: PRAVASTATIN SOD 40 MG TAB PO SCH (08:15)
[2017-01-23] MEDS: PANTOPRAZOLE SOD 40 MG DELAYED RELEASE TAB PO SCH (08:15)
[2017-01-23] MEDS: ARTIFICIAL TEARS OPTH SOLN 15 ML BTL EACH EYE SCH ×3 (08:16→17:31)
[2017-01-23] MEDS: POTASSIUM CHLORIDE 25 MEQ EFFERVESCENT TAB NG SCH ×2 (08:16→20:44)
[2017-01-23] MEDS: NYSTATIN 100,000 U/GM PWD 15 GM BTL TOPICAL SCH ×3 (08:16→17:31)
[2017-01-23 08:17] VITALS: BP 138/85; PULSE 80; RESP 20; TEMP 97.6; O2SAT 95
[2017-01-23 12:16] VITALS: BP 128/83; PULSE 83; RESP 20; TEMP 97.1; O2SAT 95
[2017-01-23 16:00] VITALS: BP 135/76; PULSE 86; RESP 20; TEMP 97; O2SAT 95
--- NOTE | 2017-01-23 16:13 | HHI.PR ---
Subjective Remarks Follow-up for intracranial hemorrhage, basilar tip aneurysm. Patient seen and examined. Patient sitting at observation nurse's station. He reports not having eaten breakfast when his empty breakfast tray is in front of him. Reported being in [place] but not certain of the city "[place]where [place] of [place]". Pt stated the year was 1919 and he was 20 years old. 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 Per RN (Margot), no new acute events overnight or since start of shift. Objective Vitals Vital Signs Date Time Temp Pulse Resp B/P Pulse Ox O2 Delivery O2 Flow Rate FiO2 01/23/17 16:00 97.0 86 20 135/76 95 01/23/17 12:16 97.1 83 20 128/83 95 01/23/17 08:17 97.6 80 20 138/85 95 01/23/17 05:22 98.3 94 19 124/83 98 01/23/17 00:38 98.4 92 20 132/82 100 01/22/17 22:28 97.7 88 20 132/82 97 114/75 136/87 I/O 01/22/17 01/22/17 01/22/17 01/23/17 01/23/17 01/23/17 07:00 15:00 23:00 07:00 15:00 23:00 Intake Total 240 ml 838 ml Balance 240 ml 838 ml Intake Oral 240 ml 838 ml # Voids 5 2 3 2 2 1 # Bowel Movements 0 1 1 Result Diagram: 01/20/17 1116 01/19/17 0733 Objective Remarks GENERAL: Pt encountered sitting at observational nurse's station, awake and alert. SKIN: Warm and dry. HEAD: Normocephalic. EYES: No scleral icterus. No injection or drainage. NECK: Supple, trachea midline. No lymphadenopathy. CARDIOVASCULAR: Regular rate and rhythm without murmurs, gallops, or rubs. RESPIRATORY: Breath sounds equal bilaterally. No accessory muscle use. GASTROINTESTINAL: Abdomen soft, non-tender, nondistended. Bowel sounds present in all quadrants. MUSCULOSKELETAL: No cyanosis, or edema. PSYCHIATRIC: Pt alert and oriented to self only. He did not evidence overt signs of anxiety or depression. Pt is pleasant and cooperative. Procedures 10/05/16 right frontal twist drill for ventriculostomy placement 10/20/16 arterial line placement 10/23/16 bedside percutaneous tracheostomy under direct bronchoscopic visualization 10/24/16 PEG tube placement at bedside Medications and IVs Current Medications Medications (Trade) Dose Ordered Sig/Nava Route Start Time Stop Time Status Last Admin (Tylenol) 650 mg Q6H PRN PO 10/05/16 02:45 01/08/17 20:27 (Tears Naturale Opth Soln) 1 drop TID EACH EYE 10/05/16 09:00 01/22/17 17:53 (Zofran Inj) 4 mg Q6H PRN IV 10/05/16 02:45 11/27/16 23:26 Miscellaneous Information 1 Q361D XX 10/05/16 02:45 10/05/16 02:45 (Chlorhexidine 2% Cloth) Taper DAILY@04 TOP 10/05/16 04:00 10/01/17 03:59 01/02/17 04:00 (Chlorhexidine 2% Cloth) 3 pack UNSCH PRN TOP 10/05/16 02:45 (Pravachol) 40 mg DAILY PO 10/05/16 09:00 01/23/17 08:15 (Lovenox Inj) 40 mg Q24H SQ 10/23/16 21:00 01/22/17 21:03 (Trandate) 100 mg Q8H PO 11/03/16 20:00 01/23/17 12:19 (Norvasc) 5 mg DAILY PO 11/04/16 09:00 01/23/17 08:15 (Mycostatin Powder) 1 applic TID TOPICAL 11/06/16 09:00 01/18/17 18:36 (Lactinex) 1 tab Q12HR PO 11/06/16 21:00 01/23/17 08:15 (SEROquel) 25 mg BID@09,12 PO 11/07/16 09:00 01/23/17 12:19 (Colace Liq) 100 mg Q12H PRN G-TUBE 11/06/16 17:00 12/11/16 21:59 (Imodium) 2 mg UNSCH PRN PO 11/09/16 09:45 11/29/16 12:57 (Lomotil Tab) 1 tab Q6H PRN PO 11/09/16 09:45 (Lactulose Liq) 30 ml QID PRN PO 12/09/16 13:45 (K-Lyte Cl Eff) 50 meq Q12HR NG 12/13/16 09:00 01/23/17 08:16 (Protonix) 40 mg DAILY PO 12/16/16 09:00 01/23/17 08:15 (Benadryl) 50 mg Q6H PRN PO 12/20/16 17:45 01/12/17 20:40 (Florinef) 0.2 mg Q48H PO 01/15/17 09:00 01/23/17 08:15 (SEROquel) 50 mg HS PO 01/19/17 21:00 01/22/17 21:02 Urinary Catheter: No A/P Problem List: (1) 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 ICD Code: I60.8 Status: Acute (2) Hypertension ICD Code: I10 Status: Chronic (3) Major neurocognitive disorder due to vascular disease, without behavioral disturbance, severe ICD Code: F01.50 Status: Acute (4) Septic shock ICD Code: A41.9 Status: Resolved (5) Hydrocephalus ICD Code: G91.9 Status: Acute (6) Intracranial hemorrhage ICD Code: I62.9 Status: Acute (7) Major neurocognitive disorder as late effect of traumatic brain injury with behavioral disturbance ICD Code: S06.9X9S Status: Acute (8) Encephalopathy ICD Code: G93.40 Status: Acute (9) Sepsis ICD Code: A41.9 Status: Resolved (10) Pneumonia ICD Code: J18.9 Status: Acute (11) Protein-calorie malnutrition, mild ICD Code: E44.1 Status: Acute (12) Acute respiratory failure with hypoxia and hypercarbia ICD Code: J96.01 Status: Acute Assessment and Plan Mr. Nunez is a 51 year old male who was brought to the hospital as a trauma alert due to head injury after he fell in the bathroom and hit his head. Patient was unresponsive for approximately 15 minutes by the time ambulance services arrived. His mentation waxed and waned with GCS ranging from [address] head indicated subarachnoid hemorrhage, acute. Neuropsychological evaluation results noted; results and implications appreciated. Pt's behavior continues to be improved since initiation of Seroquel. 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 Level <2.0. - Neurology signed off. Neuropsychology following patient ultimately for discharge placement and assistance with recommendations. Per neuropsych note, ongoing areas of concern include behavioral impulsivity, lack of insight and judgement. - Speech therapy recommends regular diet with thin liquids, Patient is eating well. PEG dc'd 01/08/17. - Cont PT/OT. - Continue Seroquel 50mg qhs. Intermittent agitation, less reported. - Orthostatic BP's documented and normal. Denies any continued dizziness. LLQ and suprapubic abdominal pain, resolved. - Denies any abdominal pain today. - UA negative, KUB unremarkable and CBC unremarkable. Acute hypoxic hypercarbic respiratory failure, resolved - Tracheostomy 10/23/16, removed, old trach site healed. - Follow respiratory status Cerebral salt wasting: - Follow sodium levels, labs stable - Florinef to 0.2 mg PO q48hrs. C. difficile colitis, resolved -Completed Flagyl on 10/23 -Follow for diarrhea, denies any at this time. -Cont Lactinex Hypokalemia, resolved: Continue scheduled KCL 50 meq PO BID. Follow and replace as needed. DVT prophylaxis: SCDs, YOUSIF hose, Lovenox. Ambulation. GI prophylaxis: Protonix. Discussed with RN and Dr. Cortes Discharge Planning Discharge planning ongoing. Issues seem to be related to finding an accepting facility as well as payor source. It was noted pt may be discharged to home, CM continues to address this possibility. Pt's is pursuing guardianship of pt, based on documents she is requesting to be completed. Pt's safety is also in question due to his cognitive status. Neuropsychological testing results in EMR. Insight and awareness are greatly impaired. Problem Qualifiers (1) Hypertension: Qualified Code: I10 - Essential hypertension Manolo Alvarez Jr. Jan 23, 2017 16:13
[2017-01-23 20:00] VITALS: BP 130/81; PULSE 84; RESP 18; TEMP 97.6; O2SAT 96
[2017-01-23] MEDS: ENOXAPARIN SODIUM 40 MG/0.4 ML SYRINGE SQ SCH (20:45)
[2017-01-24] VITALS: BP 122/68; PULSE 79; RESP 18; TEMP 97.8; O2SAT 94
[2017-01-24] MEDS: LABETALOL HCL 100 MG TAB PO SCH ×3 (03:21→21:49)
[2017-01-24] MEDS: CHLORHEXIDINE GLUCONATE 2 % 1 PACK (2 CLOTHS) TOP SCH (03:21)
[2017-01-24 04:00] VITALS: BP 149/79; PULSE 70; RESP 18; TEMP 97.6; O2SAT 95
[2017-01-24 08:00] VITALS: BP 134/83; PULSE 75; RESP 18; TEMP 97.9; O2SAT 97
[2017-01-24] MEDS: NYSTATIN 100,000 U/GM PWD 15 GM BTL TOPICAL SCH ×3 (09:00→17:15)
[2017-01-24] MEDS: QUEtiapine FUMARATE 25 MG TAB PO SCH ×3 (09:30→21:48)
[2017-01-24] MEDS: PANTOPRAZOLE SOD 40 MG DELAYED RELEASE TAB PO SCH (09:30)
[2017-01-24] MEDS: LACTOBACILLUS ACIDOPHILUS TAB PO SCH ×2 (09:30→21:47)
[2017-01-24] MEDS: POTASSIUM CHLORIDE 25 MEQ EFFERVESCENT TAB NG SCH ×2 (09:30→21:00)
[2017-01-24] MEDS: amLODIPine BESYLATE 5 MG TAB PO SCH (09:30)
[2017-01-24] MEDS: PRAVASTATIN SOD 40 MG TAB PO SCH (09:30)
[2017-01-24] MEDS: ARTIFICIAL TEARS OPTH SOLN 15 ML BTL EACH EYE SCH ×3 (09:32→17:15)
[2017-01-24 12:00] VITALS: BP 130/84; PULSE 78; RESP 17; TEMP 98.2; O2SAT 97
[2017-01-24 12:17] LABS: BICARBONATE 27.3 MEQ/L (21.0-32.0); CALCIUM 9.2 MG/DL (8.5-10.1); CREATININE 1.1 MG/DL (0.60-1.30)
--- NOTE | 2017-01-24 15:21 | HHI.PR ---
Subjective Remarks Follow-up for intracranial hemorrhage, basilar tip aneurysm. Patient seen and examined. Patient laying a bed, awake and alert Reported being in "[place], [place] " and stated the year was "1992". 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 Pt reported not knowing how he got to "this place." He could not name the city, after having been told he was in [place]. He said he could not recall moving to [facility]. No new issues noted or reported by patient. Denies dizziness with standing, any headaches, chest pain or SOB, N/V or abdominal pain. Per RN (Tete), no new acute events overnight or since start of shift. Objective Vitals Vital Signs Date Time Temp Pulse Resp B/P Pulse Ox O2 Delivery O2 Flow Rate FiO2 01/24/17 12:00 98.2 78 17 130/84 97 01/24/17 08:00 97.9 75 18 134/83 97 01/24/17 04:00 97.6 70 18 149/79 95 01/24/17 00:00 97.8 79 18 122/68 94 01/23/17 20:00 97.6 84 18 130/81 96 01/23/17 16:00 97.0 86 20 135/76 95 I/O 01/23/17 01/23/17 01/23/17 01/24/17 01/24/17 01/24/17 06:59 14:59 22:59 06:59 14:59 22:59 Intake Total 240 ml 838 ml Balance 240 ml 838 ml Intake Oral 240 ml 838 ml # Voids 2 2 1 2 # Bowel Movements 1 Result Diagram: 01/20/17 1116 01/24/17 1107 Objective Remarks GENERAL: Pt encountered laying a bed, awake and alert. SKIN: Warm and dry. HEAD: Normocephalic. EYES: No scleral icterus. No injection or drainage. NECK: Supple, trachea midline. No lymphadenopathy. CARDIOVASCULAR: Regular rate and rhythm without murmurs, gallops, or rubs. RESPIRATORY: Breath sounds equal bilaterally. No accessory muscle use. GASTROINTESTINAL: Abdomen soft, non-tender, nondistended. Bowel sounds present in all quadrants. MUSCULOSKELETAL: No cyanosis, or edema. PSYCHIATRIC: Pt alert and oriented to self only. He did not evidence overt signs of anxiety or depression. Pt is pleasant and cooperative. Procedures 10/05/16 right frontal twist drill for ventriculostomy placement 10/20/16 arterial line placement 10/23/16 bedside percutaneous tracheostomy under direct bronchoscopic visualization 10/24/16 PEG tube placement at bedside Medications and IVs Current Medications Medications (Trade) Dose Ordered Sig/Nava Route Start Time Stop Time Status Last Admin (Tylenol) 650 mg Q6H PRN PO 10/05/16 02:45 01/08/17 20:27 (Tears Naturale Opth Soln) 1 drop TID EACH EYE 10/05/16 09:00 01/24/17 12:20 (Zofran Inj) 4 mg Q6H PRN IV 10/05/16 02:45 11/27/16 23:26 Miscellaneous Information 1 Q361D XX 10/05/16 02:45 10/05/16 02:45 (Chlorhexidine 2% Cloth) Taper DAILY@04 TOP 10/05/16 04:00 10/01/17 03:59 01/02/17 04:00 (Chlorhexidine 2% Cloth) 3 pack UNSCH PRN TOP 10/05/16 02:45 (Pravachol) 40 mg DAILY PO 10/05/16 09:00 01/24/17 09:30 (Lovenox Inj) 40 mg Q24H SQ 10/23/16 21:00 01/23/17 20:45 (Trandate) 100 mg Q8H PO 11/03/16 20:00 01/24/17 12:20 (Norvasc) 5 mg DAILY PO 11/04/16 09:00 01/24/17 09:30 (Mycostatin Powder) 1 applic TID TOPICAL 11/06/16 09:00 01/18/17 18:36 (Lactinex) 1 tab Q12HR PO 11/06/16 21:00 01/24/17 09:30 (SEROquel) 25 mg BID@09,12 PO 11/07/16 09:00 01/24/17 12:20 (Colace Liq) 100 mg Q12H PRN G-TUBE 11/06/16 17:00 12/11/16 21:59 (Imodium) 2 mg UNSCH PRN PO 11/09/16 09:45 11/29/16 12:57 (Lomotil Tab) 1 tab Q6H PRN PO 11/09/16 09:45 (Lactulose Liq) 30 ml QID PRN PO 12/09/16 13:45 (K-Lyte Cl Eff) 50 meq Q12HR NG 12/13/16 09:00 01/24/17 09:30 (Protonix) 40 mg DAILY PO 12/16/16 09:00 01/24/17 09:30 (Benadryl) 50 mg Q6H PRN PO 12/20/16 17:45 01/12/17 20:40 (Florinef) 0.2 mg Q48H PO 01/15/17 09:00 01/23/17 08:15 (SEROquel) 50 mg HS PO 01/19/17 21:00 01/23/17 20:45 Urinary Catheter: No A/P Problem List: (1) 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 ICD Code: I60.8 Status: Acute (2) Hypertension ICD Code: I10 Status: Chronic (3) Major neurocognitive disorder due to vascular disease, without behavioral disturbance, severe ICD Code: F01.50 Status: Acute (4) Septic shock ICD Code: A41.9 Status: Resolved (5) Hydrocephalus ICD Code: G91.9 Status: Acute (6) Intracranial hemorrhage ICD Code: I62.9 Status: Acute (7) Major neurocognitive disorder as late effect of traumatic brain injury with behavioral disturbance ICD Code: S06.9X9S Status: Acute (8) Encephalopathy ICD Code: G93.40 Status: Acute (9) Sepsis ICD Code: A41.9 Status: Resolved (10) Pneumonia ICD Code: J18.9 Status: Acute (11) Protein-calorie malnutrition, mild ICD Code: E44.1 Status: Acute (12) Acute respiratory failure with hypoxia and hypercarbia ICD Code: J96.01 Status: Acute Assessment and Plan Mr. Nunez is a 51 year old male who was brought to the hospital as a trauma alert due to head injury after he fell in the bathroom and hit his head. Patient was unresponsive for approximately 15 minutes by the time ambulance services arrived. His mentation waxed and waned with GCS ranging from [address] head indicated subarachnoid hemorrhage, acute. Sodium level stable, will d/c Florinef. Check labs later in week. Intracranial hemorrhage, status post basilar artery coiling 10/05, Status post INCIDENT COORDINATOR shunt on 11/24/2016 Chronic encephalopathy Hydrocephalus Cortical blindness - Continue Keppra. Level <2.0. - Neurology signed off. Neuropsychology following patient ultimately for discharge placement and assistance with recommendations. Per neuropsych note, ongoing areas of concern include behavioral impulsivity, lack of insight and judgement. - Speech therapy recommends regular diet with thin liquids, Patient is eating well. PEG dc'd 01/08/17. - Cont PT/OT. - Continue Seroquel 50mg qhs. Intermittent agitation, less reported. LLQ and suprapubic abdominal pain, resolved. - Denies any abdominal pain today. - UA negative, KUB unremarkable and CBC unremarkable. Acute hypoxic hypercarbic respiratory failure, resolved - Tracheostomy 10/23/16, removed, old trach site healed. - Follow respiratory status Cerebral salt wasting: - Follow sodium levels, labs stable - Florinef to 0.2 mg PO q48hrs. -labs stable, d/c Florinef (01/24/17). C. difficile colitis, resolved -Completed Flagyl on 10/23 -Follow for diarrhea, denies any at this time. -Cont Lactinex Hypokalemia, resolved: Continue scheduled KCL 50 meq PO BID. Follow and replace as needed. DVT prophylaxis: SCDs, YOUSIF hose, Lovenox. Ambulation. GI prophylaxis: Protonix. Discussed with Pt, RN, [facility] nurse coordinator and Dr. Cortes Discharge Planning Discharge planning ongoing. Issues seem to be related to finding an accepting facility as well as payor source. It was noted pt may be discharged to home, CM continues to address this possibility. Pt's is pursuing guardianship of pt, based on documents she is requesting to be completed. Pt's safety is also in question due to his cognitive status. Neuropsychological testing results in EMR. Insight and awareness are greatly impaired. Problem Qualifiers (1) Hypertension: Qualified Code: I10 - Essential hypertension Manolo Alvarez Jr. Jan 24, 2017 15:21
[2017-01-24 16:00] VITALS: BP 106/65; PULSE 74; RESP 18; TEMP 97.7; O2SAT 96
[2017-01-24 20:00] VITALS: BP 148/91; PULSE 89; RESP 18; TEMP 97.8; O2SAT 95
[2017-01-24] MEDS: ENOXAPARIN SODIUM 40 MG/0.4 ML SYRINGE SQ SCH (21:48)
[2017-01-25] VITALS: BP 139/88; PULSE 84; RESP 18; TEMP 97.6; O2SAT 94
[2017-01-25] MEDS: CHLORHEXIDINE GLUCONATE 2 % 1 PACK (2 CLOTHS) TOP SCH (04:00)
[2017-01-25] MEDS: LABETALOL HCL 100 MG TAB PO SCH ×3 (04:57→22:10)
[2017-01-25 07:47] VITALS: BP 126/68; PULSE 88; RESP 17; TEMP 98.2; O2SAT 94
[2017-01-25] MEDS: PANTOPRAZOLE SOD 40 MG DELAYED RELEASE TAB PO SCH (08:32)
[2017-01-25] MEDS: LACTOBACILLUS ACIDOPHILUS TAB PO SCH ×2 (08:32→22:10)
[2017-01-25] MEDS: QUEtiapine FUMARATE 25 MG TAB PO SCH ×3 (08:32→22:10)
[2017-01-25] MEDS: amLODIPine BESYLATE 5 MG TAB PO SCH (08:33)
[2017-01-25] MEDS: POTASSIUM CHLORIDE 25 MEQ EFFERVESCENT TAB NG SCH ×2 (08:33→22:10)
[2017-01-25] MEDS: PRAVASTATIN SOD 40 MG TAB PO SCH (08:33)
[2017-01-25] MEDS: NYSTATIN 100,000 U/GM PWD 15 GM BTL TOPICAL SCH ×3 (08:34→18:00)
[2017-01-25] MEDS: ARTIFICIAL TEARS OPTH SOLN 15 ML BTL EACH EYE SCH ×3 (08:35→18:00)
[2017-01-25 12:00] VITALS: BP 115/71; PULSE 91; RESP 18; TEMP 97.3; O2SAT 98
--- NOTE | 2017-01-25 14:43 | HHI.PR ---
Subjective Remarks Follow-up for intracranial hemorrhage, basilar tip aneurysm. Patient seen and examined. Patient laying a bed, awake and alert eating lunch. Reported being in "[place], [place] " and stated the year was "1990". pt reported poor sleep and said it was "broken." No new issues noted or reported by patient. Denies dizziness with standing, any headaches, chest pain or SOB, N/V, abdominal pain bloody urine or stool. Per RN (Zafar), no new acute events overnight or since start of shift. Objective Vitals Vital Signs Date Time Temp Pulse Resp B/P Pulse Ox O2 Delivery O2 Flow Rate FiO2 01/25/17 12:00 97.3 91 18 115/71 98 01/25/17 08:37 Room Air 01/25/17 07:47 98.2 88 17 126/68 94 01/25/17 04:00 Room Air 01/25/17 00:00 Room Air 01/25/17 00:00 97.6 84 18 139/88 94 01/24/17 20:00 Room Air 01/24/17 20:00 97.8 89 18 148/91 95 01/24/17 16:00 97.7 74 18 106/65 96 I/O 01/24/17 01/24/17 01/24/17 01/25/17 01/25/17 01/25/17 07:00 15:00 23:00 07:00 15:00 23:00 Intake Total 780 ml 480 ml Balance 780 ml 480 ml Intake Oral 780 ml 480 ml # Voids 2 6 2 # Bowel Movements 0 Result Diagram: 01/24/17 1107 Objective Remarks GENERAL: Pt encountered laying a bed, awake and alert, eating lunch. SKIN: Warm and dry. HEAD: Normocephalic. EYES: No scleral icterus. No injection or drainage. NECK: Supple, trachea midline. No lymphadenopathy. CARDIOVASCULAR: Regular rate and rhythm without murmurs, gallops, or rubs. RESPIRATORY: Breath sounds equal bilaterally. No accessory muscle use. GASTROINTESTINAL: Abdomen soft, non-tender, nondistended. Bowel sounds present in all quadrants. MUSCULOSKELETAL: No cyanosis, or edema. PSYCHIATRIC: Pt alert and oriented to self only. He did not evidence overt signs of anxiety or depression. Pt is pleasant and cooperative. 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 ICD Code: I60.8 Status: Acute (2) Hypertension ICD Code: I10 Status: Chronic (3) Major neurocognitive disorder due to vascular disease, without behavioral disturbance, severe ICD Code: F01.50 Status: Acute (4) Septic shock ICD Code: A41.9 Status: Resolved (5) Hydrocephalus ICD Code: G91.9 Status: Acute (6) Intracranial hemorrhage ICD Code: I62.9 Status: Acute (7) Major neurocognitive disorder as late effect of traumatic brain injury with behavioral disturbance ICD Code: S06.9X9S Status: Acute (8) Encephalopathy ICD Code: G93.40 Status: Acute (9) Sepsis ICD Code: A41.9 Status: Resolved (10) Pneumonia ICD Code: J18.9 Status: Acute (11) Protein-calorie malnutrition, mild ICD Code: E44.1 Status: Acute (12) Acute respiratory failure with hypoxia and hypercarbia ICD Code: J96.01 Status: Acute Assessment and Plan Mr. Nunez is a 51 year old male who was brought to the hospital as a trauma alert due to head injury after he fell in the bathroom and hit his head. Patient was unresponsive for approximately 15 minutes by the time ambulance services arrived. His mentation waxed and waned with GCS ranging from [address] head indicated subarachnoid hemorrhage, acute. Florinef discontinued on 01/25. Check labs on 01/29. Potassium WNL. 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 Level <2.0. - Neurology signed off. Neuropsychology following patient ultimately for discharge placement and assistance with recommendations. Per neuropsych note, ongoing areas of concern include behavioral impulsivity, lack of insight and judgement. - Speech therapy recommends regular diet with thin liquids, Patient is eating well. PEG dc'd 01/08/17. - Cont PT/OT. - Continue Seroquel 50mg qhs. Intermittent agitation, less reported. LLQ and suprapubic abdominal pain, resolved. - Denies any abdominal pain today. - UA negative, KUB unremarkable and CBC unremarkable. Acute hypoxic hypercarbic respiratory failure, resolved - Tracheostomy 10/23/16, removed, old trach site healed. - Follow respiratory status Cerebral salt wasting: - Follow sodium levels, labs stable - Florinef to 0.2 mg PO q48hrs. -labs stable, d/c Florinef (01/25/17). C. difficile colitis, resolved -Completed Flagyl on 10/23 -Follow for diarrhea, denies any at this time. -Cont Lactinex Hypokalemia, resolved: Continue scheduled KCL 50 meq PO BID. Follow and replace as needed. DVT prophylaxis: SCDs, YOUSIF hose, Lovenox. Ambulation. GI prophylaxis: Protonix. Discussed with Pt, RN, and Dr. Cortes Discharge Planning Discharge planning ongoing. Issues seem to be related to finding an accepting facility as well as payor source. It was noted pt may be discharged to home, CM continues to address this possibility. Pt's is pursuing guardianship of pt, based on documents she is requesting to be completed. Pt's safety is also in question due to his cognitive status. Neuropsychological testing results in EMR. Insight and awareness are greatly impaired. Problem Qualifiers (1) Hypertension: Qualified Code: I10 - Essential hypertension Manolo Alvarez Jr. Jan 25, 2017 14:43
[2017-01-25 16:00] VITALS: BP 126/74; PULSE 62; RESP 19; TEMP 97.9; O2SAT 96
[2017-01-25 20:00] VITALS: BP 127/79; PULSE 81; RESP 20; TEMP 98; O2SAT 99
[2017-01-25] MEDS: ENOXAPARIN SODIUM 40 MG/0.4 ML SYRINGE SQ SCH (22:10)
[2017-01-26] VITALS: BP 113/76; PULSE 84; RESP 20; TEMP 98.2; O2SAT 94
[2017-01-26 04:00] VITALS: BP 112/64; PULSE 67; RESP 20; TEMP 97.6; O2SAT 94
[2017-01-26] MEDS: CHLORHEXIDINE GLUCONATE 2 % 1 PACK (2 CLOTHS) TOP SCH (04:00)
[2017-01-26] MEDS: LABETALOL HCL 100 MG TAB PO SCH ×3 (04:30→22:06)
[2017-01-26 08:00] VITALS: BP 127/84; PULSE 84; RESP 20; TEMP 98.1; O2SAT 95
[2017-01-26] MEDS: ARTIFICIAL TEARS OPTH SOLN 15 ML BTL EACH EYE SCH ×3 (08:38→16:12)
[2017-01-26] MEDS: PANTOPRAZOLE SOD 40 MG DELAYED RELEASE TAB PO SCH (08:38)
[2017-01-26] MEDS: POTASSIUM CHLORIDE 25 MEQ EFFERVESCENT TAB NG SCH ×2 (08:38→22:06)
[2017-01-26] MEDS: amLODIPine BESYLATE 5 MG TAB PO SCH (08:38)
[2017-01-26] MEDS: NYSTATIN 100,000 U/GM PWD 15 GM BTL TOPICAL SCH ×3 (08:38→16:12)
[2017-01-26] MEDS: QUEtiapine FUMARATE 25 MG TAB PO SCH ×3 (08:38→22:06)
[2017-01-26] MEDS: PRAVASTATIN SOD 40 MG TAB PO SCH (08:38)
[2017-01-26] MEDS: LACTOBACILLUS ACIDOPHILUS TAB PO SCH ×2 (08:38→22:06)
[2017-01-26 12:06] VITALS: BP 110/70; PULSE 73; RESP 17; TEMP 97.8; O2SAT 95
--- NOTE | 2017-01-26 15:44 | HHI.PR ---
Subjective Remarks Follow-up for intracranial hemorrhage, basilar tip aneurysm. Patient seen and examined. Patient laying in recliner chair at [facility] nurses station sleeping. Easily awakened. Reported being in "[place], [place]" and stated the year was "1990". Pt reported poor sleep and he got "creamed" last night. No new issues noted or reported by patient. Denies dizziness with standing, any headaches, chest pain or SOB, N/V, abdominal pain bloody urine or stool. Per RN (Alexis), pt was aggressive, requiring secutiry to be called and was placed in bilateral wrist restraints earlier in the morning (before current shift). Pt was reported to be "out of restraints and behavior was good." no new acute events since start of shift. Objective Vitals Vital Signs Date Time Temp Pulse Resp B/P Pulse Ox O2 Delivery O2 Flow Rate FiO2 01/26/17 12:06 97.8 73 17 110/70 95 01/26/17 08:00 98.1 84 20 127/84 95 01/26/17 07:00 Room Air 01/26/17 04:00 97.6 67 20 112/64 94 01/26/17 00:00 98.2 84 20 113/76 94 01/25/17 23:38 Room Air 01/25/17 20:00 98.0 81 20 127/79 99 01/25/17 16:00 97.9 62 19 126/74 96 I/O 01/25/17 01/25/17 01/25/17 01/26/17 01/26/17 01/26/17 07:00 15:00 23:00 07:00 15:00 23:00 Intake Total 480 ml 480 ml Balance 480 ml 480 ml Intake Oral 480 ml 480 ml # Voids 6 3 2 # Bowel Movements 0 0 0 Result Diagram: 01/24/17 1107 Objective Remarks GENERAL: Pt encountered laying in recliner chair,sleeping, easily awakened. SKIN: Warm and dry. HEAD: Normocephalic. EYES: No scleral icterus. No injection or drainage. NECK: Supple, trachea midline. No lymphadenopathy. CARDIOVASCULAR: Regular rate and rhythm without murmurs, gallops, or rubs. RESPIRATORY: Breath sounds equal bilaterally. No accessory muscle use. GASTROINTESTINAL: Abdomen soft, non-tender, nondistended. Bowel sounds present in all quadrants. MUSCULOSKELETAL: No cyanosis, or edema. PSYCHIATRIC: Pt alert and oriented to self only. He did not evidence overt signs of anxiety or depression. Pt is pleasant and cooperative. Procedures 10/05/16 right frontal twist drill for ventriculostomy placement 10/20/16 arterial line placement 10/23/16 bedside percutaneous tracheostomy under direct bronchoscopic visualization 10/24/16 PEG tube placement at bedside Medications and IVs Current Medications Medications (Trade) Dose Ordered Sig/Nava Route Start Time Stop Time Status Last Admin (Tylenol) 650 mg Q6H PRN PO 10/05/16 02:45 01/08/17 20:27 (Tears Naturale Opth Soln) 1 drop TID EACH EYE 10/05/16 09:00 01/26/17 12:08 (Zofran Inj) 4 mg Q6H PRN IV 10/05/16 02:45 11/27/16 23:26 Miscellaneous Information 1 Q361D XX 10/05/16 02:45 10/05/16 02:45 (Chlorhexidine 2% Cloth) Taper DAILY@04 TOP 10/05/16 04:00 10/01/17 03:59 01/02/17 04:00 (Chlorhexidine 2% Cloth) 3 pack UNSCH PRN TOP 10/05/16 02:45 (Pravachol) 40 mg DAILY PO 10/05/16 09:00 01/26/17 08:38 (Lovenox Inj) 40 mg Q24H SQ 10/23/16 21:00 01/25/17 22:10 (Trandate) 100 mg Q8H PO 11/03/16 20:00 01/26/17 04:30 (Norvasc) 5 mg DAILY PO 11/04/16 09:00 01/26/17 08:38 (Mycostatin Powder) 1 applic TID TOPICAL 11/06/16 09:00 01/18/17 18:36 (Lactinex) 1 tab Q12HR PO 11/06/16 21:00 01/26/17 08:38 (SEROquel) 25 mg BID@09,12 PO 11/07/16 09:00 01/26/17 12:00 (Colace Liq) 100 mg Q12H PRN G-TUBE 11/06/16 17:00 12/11/16 21:59 (Imodium) 2 mg UNSCH PRN PO 11/09/16 09:45 11/29/16 12:57 (Lomotil Tab) 1 tab Q6H PRN PO 11/09/16 09:45 (Lactulose Liq) 30 ml QID PRN PO 12/09/16 13:45 (K-Lyte Cl Eff) 50 meq Q12HR NG 12/13/16 09:00 01/26/17 08:38 (Protonix) 40 mg DAILY PO 12/16/16 09:00 01/26/17 08:38 (Benadryl) 50 mg Q6H PRN PO 12/20/16 17:45 01/12/17 20:40 (SEROquel) 50 mg HS PO 01/19/17 21:00 01/25/17 22:10 Urinary Catheter: No A/P Problem List: (1) 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 ICD Code: I60.8 Status: Acute (2) Hypertension ICD Code: I10 Status: Chronic (3) Major neurocognitive disorder due to vascular disease, without behavioral disturbance, severe ICD Code: F01.50 Status: Acute (4) Septic shock ICD Code: A41.9 Status: Resolved (5) Hydrocephalus ICD Code: G91.9 Status: Acute (6) Intracranial hemorrhage ICD Code: I62.9 Status: Acute (7) Major neurocognitive disorder as late effect of traumatic brain injury with behavioral disturbance ICD Code: S06.9X9S Status: Acute (8) Encephalopathy ICD Code: G93.40 Status: Acute (9) Sepsis ICD Code: A41.9 Status: Resolved (10) Pneumonia ICD Code: J18.9 Status: Acute (11) Protein-calorie malnutrition, mild ICD Code: E44.1 Status: Acute (12) Acute respiratory failure with hypoxia and hypercarbia ICD Code: J96.01 Status: Acute Assessment and Plan Mr. Nunez is a 51 year old male who was brought to the hospital as a trauma alert due to head injury after he fell in the bathroom and hit his head. Patient was unresponsive for approximately 15 minutes by the time ambulance services arrived. His mentation waxed and waned with GCS ranging from [address] head indicated subarachnoid hemorrhage, acute. Behavioral event noted early this am. Monitor behavior. Labs ordered 01/29. 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 Level <2.0. - Neurology signed off. Neuropsychology following patient ultimately for discharge placement and assistance with recommendations. Per neuropsych note, ongoing areas of concern include behavioral impulsivity, lack of insight and judgement. - Speech therapy recommends regular diet with thin liquids, Patient is eating well. PEG dc'd 01/08/17. - Cont PT/OT. - Continue Seroquel 50mg qhs. Intermittent agitation, less reported. LLQ and suprapubic abdominal pain, resolved. - Denies any abdominal pain today. - UA negative, KUB unremarkable and CBC unremarkable. Acute hypoxic hypercarbic respiratory failure, resolved - Tracheostomy 10/23/16, removed, old trach site healed. - Follow respiratory status Cerebral salt wasting: - Follow sodium levels, labs stable - Florinef to 0.2 mg PO q48hrs. -labs stable, d/c Florinef (01/25/17). C. difficile colitis, resolved -Completed Flagyl on 10/23 -Follow for diarrhea, denies any at this time. -Cont Lactinex Hypokalemia, resolved: Continue scheduled KCL 50 meq PO BID. Follow and replace as needed. DVT prophylaxis: SCDs, YOUSIF hose, Lovenox. Ambulation. GI prophylaxis: Protonix. Discussed with Pt, RN, and Dr. James Discharge Planning Discharge planning ongoing. Issues seem to be related to finding an accepting facility as well as payor source. It was noted pt may be discharged to home, CM continues to address this possibility. Pt's is pursuing guardianship of pt, based on documents she is requesting to be completed. Pt's safety is also in question due to his cognitive status. Neuropsychological testing results in EMR. Insight and awareness are greatly impaired. Problem Qualifiers (1) Hypertension: Qualified Code: I10 - Essential hypertension Manolo Alvarez Jr. Jan 26, 2017 15:44
[2017-01-26 16:31] VITALS: BP 120/81; PULSE 86; RESP 20; TEMP 97.2; O2SAT 96
[2017-01-26 20:00] VITALS: BP 134/83; PULSE 87; RESP 18; TEMP 97.6; O2SAT 97
[2017-01-26] MEDS: ENOXAPARIN SODIUM 40 MG/0.4 ML SYRINGE SQ SCH (22:06)
[2017-01-27] VITALS: BP 112/70; PULSE 86; RESP 16; TEMP 97.6; O2SAT 93
[2017-01-27 04:00] VITALS: BP 125/72; PULSE 91; RESP 16; TEMP 98.8; O2SAT 93
[2017-01-27] MEDS: CHLORHEXIDINE GLUCONATE 2 % 1 PACK (2 CLOTHS) TOP SCH (04:00)
[2017-01-27] MEDS: LABETALOL HCL 100 MG TAB PO SCH ×3 (05:20→21:48)
[2017-01-27] MEDS: ARTIFICIAL TEARS OPTH SOLN 15 ML BTL EACH EYE SCH ×3 (08:22→16:20)
[2017-01-27 08:23] VITALS: BP 128/81; PULSE 74; RESP 20; TEMP 97.5; O2SAT 94
[2017-01-27] MEDS: NYSTATIN 100,000 U/GM PWD 15 GM BTL TOPICAL SCH ×3 (08:23→16:20)
[2017-01-27] MEDS: PANTOPRAZOLE SOD 40 MG DELAYED RELEASE TAB PO SCH (08:23)
[2017-01-27] MEDS: amLODIPine BESYLATE 5 MG TAB PO SCH (08:23)
[2017-01-27] MEDS: LACTOBACILLUS ACIDOPHILUS TAB PO SCH ×2 (08:23→21:46)
[2017-01-27] MEDS: POTASSIUM CHLORIDE 25 MEQ EFFERVESCENT TAB NG SCH ×2 (08:23→21:47)
[2017-01-27] MEDS: PRAVASTATIN SOD 40 MG TAB PO SCH (08:23)
[2017-01-27] MEDS: QUEtiapine FUMARATE 25 MG TAB PO SCH ×3 (08:23→21:46)
[2017-01-27 12:36] VITALS: BP 121/74; PULSE 77; RESP 20; TEMP 98.1; O2SAT 95
[2017-01-27 16:00] VITALS: BP 127/76; PULSE 83; RESP 19; TEMP 97.7; O2SAT 97
--- NOTE | 2017-01-27 16:26 | HHI.PR ---
Subjective Remarks Follow-up for intracranial hemorrhage, basilar tip aneurysm. Patient seen and examined. Patient laying in bed sleeping. Easily awakened. Reported not knowing where he was and stated the year was "1998". Pt reported aches in various places. He attributed them to "starting football practice." No new issues noted or reported by patient. Denies dizziness with standing, any headaches, chest pain or SOB, N/V, abdominal pain bloody urine or stool. Per RN (), no acute events overnight or since start of shift. Objective Vitals Vital Signs Date Time Temp Pulse Resp B/P Pulse Ox O2 Delivery O2 Flow Rate FiO2 01/27/17 16:00 97.7 83 19 127/76 97 01/27/17 12:36 98.1 77 20 121/74 95 01/27/17 08:23 97.5 74 20 128/81 94 01/27/17 07:00 Room Air 01/27/17 04:00 98.8 91 16 125/72 93 01/27/17 00:00 97.6 86 16 112/70 93 01/26/17 23:37 Room Air 01/26/17 20:00 97.6 87 18 134/83 97 01/26/17 16:31 97.2 86 20 120/81 96 I/O 01/26/17 01/26/17 01/26/17 01/27/17 01/27/17 01/27/17 06:59 14:59 22:59 06:59 14:59 22:59 Intake Total 480 ml 780 ml Balance 480 ml 780 ml Intake Oral 480 ml 780 ml # Voids 2 3 2 # Bowel Movements 0 Result Diagram: 01/24/17 1107 Objective Remarks GENERAL: Pt encountered laying a bed,sleeping, easily awakened. SKIN: Warm and dry. HEAD: Normocephalic. EYES: No scleral icterus. No injection or drainage. NECK: Supple, trachea midline. No lymphadenopathy. CARDIOVASCULAR: Regular rate and rhythm without murmurs, gallops, or rubs. RESPIRATORY: Breath sounds equal bilaterally. No accessory muscle use. GASTROINTESTINAL: Abdomen soft, non-tender, nondistended. Bowel sounds present in all quadrants. MUSCULOSKELETAL: No cyanosis, or edema. PSYCHIATRIC: Pt alert and oriented to self only. He did not evidence overt signs of anxiety or depression. Pt is pleasant and cooperative. Procedures 10/05/16 right frontal twist drill for ventriculostomy placement 10/20/16 arterial line placement 10/23/16 bedside percutaneous tracheostomy under direct bronchoscopic visualization 10/24/16 PEG tube placement at bedside Medications and IVs Current Medications Medications (Trade) Dose Ordered Sig/Nava Route Start Time Stop Time Status Last Admin (Tylenol) 650 mg Q6H PRN PO 10/05/16 02:45 01/08/17 20:27 (Tears Naturale Opth Soln) 1 drop TID EACH EYE 10/05/16 09:00 01/27/17 16:20 (Zofran Inj) 4 mg Q6H PRN IV 10/05/16 02:45 11/27/16 23:26 Miscellaneous Information 1 Q361D XX 10/05/16 02:45 10/05/16 02:45 (Chlorhexidine 2% Cloth) 3 pack Taper DAILY@04 TOP 10/05/16 04:00 10/01/17 03:59 01/02/17 04:00 (Chlorhexidine 2% Cloth) 3 pack UNSCH PRN TOP 10/05/16 02:45 (Pravachol) 40 mg DAILY PO 10/05/16 09:00 01/27/17 08:23 (Lovenox Inj) 40 mg Q24H SQ 10/23/16 21:00 01/26/17 22:06 (Trandate) 100 mg Q8H PO 11/03/16 20:00 01/27/17 11:42 (Norvasc) 5 mg DAILY PO 11/04/16 09:00 01/27/17 08:23 (Mycostatin Powder) 1 applic TID TOPICAL 11/06/16 09:00 01/18/17 18:36 (Lactinex) 1 tab Q12HR PO 11/06/16 21:00 01/27/17 08:23 (SEROquel) 25 mg BID@09,12 PO 11/07/16 09:00 01/27/17 11:42 (Colace Liq) 100 mg Q12H PRN G-TUBE 11/06/16 17:00 12/11/16 21:59 (Imodium) 2 mg UNSCH PRN PO 11/09/16 09:45 11/29/16 12:57 (Lomotil Tab) 1 tab Q6H PRN PO 11/09/16 09:45 (Lactulose Liq) 30 ml QID PRN PO 12/09/16 13:45 (K-Lyte Cl Eff) 50 meq Q12HR NG 12/13/16 09:00 01/27/17 08:23 (Protonix) 40 mg DAILY PO 12/16/16 09:00 01/27/17 08:23 (Benadryl) 50 mg Q6H PRN PO 12/20/16 17:45 01/12/17 20:40 (SEROquel) 50 mg HS PO 01/19/17 21:00 01/26/17 22:06 Urinary Catheter: No A/P Problem List: (1) 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 ICD Code: I60.8 Status: Acute (2) Hypertension ICD Code: I10 Status: Chronic (3) Major neurocognitive disorder due to vascular disease, without behavioral disturbance, severe ICD Code: F01.50 Status: Acute (4) Septic shock ICD Code: A41.9 Status: Resolved (5) Hydrocephalus ICD Code: G91.9 Status: Acute (6) Intracranial hemorrhage ICD Code: I62.9 Status: Acute (7) Major neurocognitive disorder as late effect of traumatic brain injury with behavioral disturbance ICD Code: S06.9X9S Status: Acute (8) Encephalopathy ICD Code: G93.40 Status: Acute (9) Sepsis ICD Code: A41.9 Status: Resolved (10) Pneumonia ICD Code: J18.9 Status: Acute (11) Protein-calorie malnutrition, mild ICD Code: E44.1 Status: Acute (12) Acute respiratory failure with hypoxia and hypercarbia ICD Code: J96.01 Status: Acute Assessment and Plan Mr. Nunez is a 51 year old male who was brought to the hospital as a trauma alert due to head injury after he fell in the bathroom and hit his head. Patient was unresponsive for approximately 15 minutes by the time ambulance services arrived. His mentation waxed and waned with GCS ranging from [address] head indicated subarachnoid hemorrhage, acute. No recurrence of behavioral issues noted. No PRN behavioral medications or restraints used within past 24 hours. Intracranial hemorrhage, status post basilar artery coiling 10/05, Status post GUARD ENTRANCE REGISTRAR shunt on 11/24/2016 Chronic encephalopathy Hydrocephalus Cortical blindness - Continue Keppra. Level <2.0. - Neurology signed off. Neuropsychology following patient ultimately for discharge placement and assistance with recommendations. Per neuropsych note, ongoing areas of concern include behavioral impulsivity, lack of insight and judgement. - Speech therapy recommends regular diet with thin liquids, Patient is eating well. PEG dc'd 01/08/17. - Cont PT/OT. - Continue Seroquel 50mg qhs. Intermittent agitation, less reported. LLQ and suprapubic abdominal pain, resolved. - Denies any abdominal pain today. - UA negative, KUB unremarkable and CBC unremarkable. Acute hypoxic hypercarbic respiratory failure, resolved - Tracheostomy 10/23/16, removed, old trach site healed. - Follow respiratory status Cerebral salt wasting: - Follow sodium levels, labs stable - Florinef to 0.2 mg PO q48hrs. -labs stable, d/c Florinef (01/25/17). C. difficile colitis, resolved -Completed Flagyl on 10/23 -Follow for diarrhea, denies any at this time. -Cont Lactinex Hypokalemia, resolved: Continue scheduled KCL 50 meq PO BID. Follow and replace as needed. DVT prophylaxis: SCDs, YOUSIF hose, Lovenox. Ambulation. GI prophylaxis: Protonix. Discussed with Pt, RN, and Dr. James Discharge Planning Discharge planning ongoing. Issues seem to be related to finding an accepting facility as well as payor source. It was noted pt may be discharged to home, CM continues to address this possibility. Pt's is pursuing guardianship of pt, based on documents she is requesting to be completed. Pt's safety is also in question due to his cognitive status. Neuropsychological testing results in EMR. Insight and awareness are greatly impaired. Problem Qualifiers (1) Hypertension: Qualified Code: I10 - Essential hypertension Manolo Alvarez Jr. Jan 27, 2017 16:26
[2017-01-27 20:00] VITALS: BP 137/87; PULSE 100; RESP 12; TEMP 98.4; O2SAT 96
[2017-01-27] MEDS: ENOXAPARIN SODIUM 40 MG/0.4 ML SYRINGE SQ SCH (21:46)
[2017-01-27] MEDS: diphenhydrAMINE HCL 50 MG CAP PO PRN (22:45)
[2017-01-28] VITALS: BP 134/78; PULSE 89; RESP 20; TEMP 96.4; O2SAT 95
[2017-01-28] MEDS: CHLORHEXIDINE GLUCONATE 2 % 1 PACK (2 CLOTHS) TOP SCH (03:38)
[2017-01-28] MEDS: LABETALOL HCL 100 MG TAB PO SCH ×3 (04:15→20:33)
[2017-01-28] MEDS: POTASSIUM CHLORIDE 25 MEQ EFFERVESCENT TAB NG SCH ×2 (08:41→20:33)
[2017-01-28] MEDS: LACTOBACILLUS ACIDOPHILUS TAB PO SCH ×2 (08:42→20:33)
[2017-01-28] MEDS: PRAVASTATIN SOD 40 MG TAB PO SCH (08:42)
[2017-01-28] MEDS: ARTIFICIAL TEARS OPTH SOLN 15 ML BTL EACH EYE SCH ×3 (08:42→17:08)
[2017-01-28] MEDS: PANTOPRAZOLE SOD 40 MG DELAYED RELEASE TAB PO SCH (08:42)
[2017-01-28] MEDS: NYSTATIN 100,000 U/GM PWD 15 GM BTL TOPICAL SCH ×3 (08:42→17:08)
[2017-01-28] MEDS: amLODIPine BESYLATE 5 MG TAB PO SCH (08:42)
[2017-01-28] MEDS: QUEtiapine FUMARATE 25 MG TAB PO SCH ×3 (08:42→20:32)
[2017-01-28 12:22] VITALS: BP 125/78; PULSE 93; RESP 17; TEMP 98; O2SAT 96
--- NOTE | 2017-01-28 14:57 | HHI.PR ---
Subjective Remarks Follow-up for intracranial hemorrhage, basilar tip aneurysm. Patient seen and examined. Patient sitting in recliner at observational nurses station. Reported he was in "[place], [place]" and stated the year was "2015". Pt reported aches in various places. No new issues noted or reported by patient. Denies dizziness with standing, any headaches, chest pain or SOB, N/V, abdominal pain bloody urine or stool. Per RN (Soniya), reported increased agitation over night with standing order for physical restraints placed. Otherwise no acute events overnight or since start of shift. Objective Vitals Vital Signs Date Time Temp Pulse Resp B/P Pulse Ox O2 Delivery O2 Flow Rate FiO2 01/28/17 12:22 98.0 93 17 125/78 96 01/28/17 00:00 96.4 89 20 134/78 95 01/27/17 22:51 Room Air 01/27/17 20:00 98.4 100 12 137/87 96 01/27/17 16:00 97.7 83 19 127/76 97 I/O 01/27/17 01/27/17 01/27/17 01/28/17 01/28/17 01/28/17 07:00 15:00 23:00 07:00 15:00 23:00 Intake Total 780 ml 380 ml 380 ml 1080 ml Balance 780 ml 380 ml 380 ml 1080 ml Intake Oral 780 ml 380 ml 380 ml 1080 ml # Voids 2 1 2 3 # Bowel Movements 1 2 Result Diagram: 01/24/17 1107 Objective Remarks GENERAL: Pt encountered sitting in reclining chair at observational nurses's station, awake and alert. SKIN: Warm and dry. HEAD: Normocephalic. EYES: No scleral icterus. No injection or drainage. NECK: Supple, trachea midline. No lymphadenopathy. CARDIOVASCULAR: Regular rate and rhythm without murmurs, gallops, or rubs. RESPIRATORY: Breath sounds equal bilaterally. No accessory muscle use. GASTROINTESTINAL: Abdomen soft, non-tender, nondistended. Bowel sounds present in all quadrants. MUSCULOSKELETAL: No cyanosis, or edema. PSYCHIATRIC: Pt alert and oriented to self only. He did not evidence overt signs of anxiety or depression. Pt seemed irritable this morning, not his usual pleasant and cooperative self. Answered questions in terse manner. Procedures 10/05/16 right frontal twist drill for ventriculostomy placement 10/20/16 arterial line placement 10/23/16 bedside percutaneous tracheostomy under direct bronchoscopic visualization 10/24/16 PEG tube placement at bedside Medications and IVs Current Medications Medications (Trade) Dose Ordered Sig/Nava Route Start Time Stop Time Status Last Admin (Tylenol) 650 mg Q6H PRN PO 10/05/16 02:45 01/08/17 20:27 (Tears Naturale Opth Soln) 1 drop TID EACH EYE 10/05/16 09:00 01/27/17 16:20 (Zofran Inj) 4 mg Q6H PRN IV 10/05/16 02:45 11/27/16 23:26 Miscellaneous Information 1 Q361D XX 10/05/16 02:45 10/05/16 02:45 (Chlorhexidine 2% Cloth) 3 pack Taper DAILY@04 TOP 10/05/16 04:00 10/01/17 03:59 01/02/17 04:00 (Chlorhexidine 2% Cloth) 3 pack UNSCH PRN TOP 10/05/16 02:45 (Pravachol) 40 mg DAILY PO 10/05/16 09:00 01/28/17 08:42 (Lovenox Inj) 40 mg Q24H SQ 10/23/16 21:00 01/27/17 21:46 (Trandate) 100 mg Q8H PO 11/03/16 20:00 01/28/17 11:01 (Norvasc) 5 mg DAILY PO 11/04/16 09:00 01/28/17 08:42 (Mycostatin Powder) 1 applic TID TOPICAL 11/06/16 09:00 01/18/17 18:36 (Lactinex) 1 tab Q12HR PO 11/06/16 21:00 01/28/17 08:42 (SEROquel) 25 mg BID@09,12 PO 11/07/16 09:00 01/28/17 11:01 (Colace Liq) 100 mg Q12H PRN G-TUBE 11/06/16 17:00 12/11/16 21:59 (Imodium) 2 mg UNSCH PRN PO 11/09/16 09:45 11/29/16 12:57 (Lomotil Tab) 1 tab Q6H PRN PO 11/09/16 09:45 (Lactulose Liq) 30 ml QID PRN PO 12/09/16 13:45 (K-Lyte Cl Eff) 50 meq Q12HR NG 12/13/16 09:00 01/28/17 08:41 (Protonix) 40 mg DAILY PO 12/16/16 09:00 01/28/17 08:42 (Benadryl) 50 mg Q6H PRN PO 12/20/16 17:45 01/27/17 22:45 (SEROquel) 50 mg HS PO 01/19/17 21:00 01/27/17 21:46 Urinary Catheter: No A/P Problem List: (1) 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 ICD Code: I60.8 Status: Acute (2) Hypertension ICD Code: I10 Status: Chronic (3) Major neurocognitive disorder due to vascular disease, without behavioral disturbance, severe ICD Code: F01.50 Status: Acute (4) Septic shock ICD Code: A41.9 Status: Resolved (5) Hydrocephalus ICD Code: G91.9 Status: Acute (6) Intracranial hemorrhage ICD Code: I62.9 Status: Acute (7) Major neurocognitive disorder as late effect of traumatic brain injury with behavioral disturbance ICD Code: S06.9X9S Status: Acute (8) Encephalopathy ICD Code: G93.40 Status: Acute (9) Sepsis ICD Code: A41.9 Status: Resolved (10) Pneumonia ICD Code: J18.9 Status: Acute (11) Protein-calorie malnutrition, mild ICD Code: E44.1 Status: Acute (12) Acute respiratory failure with hypoxia and hypercarbia ICD Code: J96.01 Status: Acute Assessment and Plan Mr. Nunez is a 51 year old male who was brought to the hospital as a trauma alert due to head injury after he fell in the bathroom and hit his head. Patient was unresponsive for approximately 15 minutes by the time ambulance services arrived. His mentation waxed and waned with GCS ranging from [address] head indicated subarachnoid hemorrhage, acute. Behavioral change noted overnight. Order placed for restraints by night team. Monitor behavior. 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 Level <2.0. - Neurology signed off. Neuropsychology following patient ultimately for discharge placement and assistance with recommendations. Per neuropsych note, ongoing areas of concern include behavioral impulsivity, lack of insight and judgement. - Speech therapy recommends regular diet with thin liquids, Patient is eating well. PEG dc'd 01/08/17. - Cont PT/OT. - Continue Seroquel 50mg qhs. Intermittent agitation, less reported. LLQ and suprapubic abdominal pain, resolved. - Denies any abdominal pain today. - UA negative, KUB unremarkable and CBC unremarkable. Acute hypoxic hypercarbic respiratory failure, resolved - Tracheostomy 10/23/16, removed, old trach site healed. - Follow respiratory status Cerebral salt wasting: - Follow sodium levels, labs stable - Florinef to 0.2 mg PO q48hrs. -labs stable, d/c Florinef (01/25/17). C. difficile colitis, resolved -Completed Flagyl on 10/23 -Follow for diarrhea, denies any at this time. -Cont Lactinex Hypokalemia, resolved: Continue scheduled KCL 50 meq PO BID. Follow and replace as needed. DVT prophylaxis: SCDs, YOUSIF han, Lovenox. Ambulation. GI prophylaxis: Protonix. Discussed with Pt, RN, and Dr. James Discharge Planning Discharge planning ongoing. Issues seem to be related to finding an accepting facility as well as payor source. It was noted pt may be discharged to home, CM continues to address this possibility. Pt's is pursuing guardianship of pt, based on documents she is requesting to be completed. Pt's safety is also in question due to his cognitive status. Neuropsychological testing results in EMR. Insight and awareness are greatly impaired. Problem Qualifiers (1) Hypertension: Qualified Code: I10 - Essential hypertension Manolo Alvarez Jr. Jan 28, 2017 14:57
[2017-01-28 16:26] VITALS: BP 132/179; PULSE 99; RESP 18; TEMP 97.3; O2SAT 96
[2017-01-28 20:00] VITALS: BP 129/74; PULSE 107; RESP 20; TEMP 98.1; O2SAT 96
[2017-01-28] MEDS: ENOXAPARIN SODIUM 40 MG/0.4 ML SYRINGE SQ SCH (20:33)
[2017-01-28] MEDS: diphenhydrAMINE HCL 50 MG CAP PO PRN (20:37)
[2017-01-29] VITALS: BP 125/81; PULSE 89; RESP 20; TEMP 97.6; O2SAT 99
[2017-01-29] MEDS: CHLORHEXIDINE GLUCONATE 2 % 1 PACK (2 CLOTHS) TOP SCH (03:47)
[2017-01-29 06:12] VITALS: BP 121/71; PULSE 71; PULSE 97; RESP 18; TEMP 97
[2017-01-29] MEDS: LABETALOL HCL 100 MG TAB PO SCH ×3 (06:15→20:15)
[2017-01-29 07:56] LABS: BICARBONATE 26.6 MEQ/L (21.0-32.0); CREATININE 1.08 MG/DL (0.60-1.30)
[2017-01-29 08:14] VITALS: BP 111/76; PULSE 84; RESP 20; TEMP 97.6; O2SAT 93
[2017-01-29] MEDS: LACTOBACILLUS ACIDOPHILUS TAB PO SCH ×2 (09:00→20:15)
[2017-01-29] MEDS: NYSTATIN 100,000 U/GM PWD 15 GM BTL TOPICAL SCH ×3 (09:00→16:20)
[2017-01-29] MEDS: PRAVASTATIN SOD 40 MG TAB PO SCH (09:00)
[2017-01-29] MEDS: ARTIFICIAL TEARS OPTH SOLN 15 ML BTL EACH EYE SCH ×3 (09:00→16:19)
[2017-01-29] MEDS: POTASSIUM CHLORIDE 25 MEQ EFFERVESCENT TAB NG SCH ×2 (09:00→20:18)
[2017-01-29] MEDS: PANTOPRAZOLE SOD 40 MG DELAYED RELEASE TAB PO SCH (09:00)
[2017-01-29] MEDS: amLODIPine BESYLATE 5 MG TAB PO SCH (09:00)
[2017-01-29] MEDS: QUEtiapine FUMARATE 25 MG TAB PO SCH ×3 (09:00→20:15)
[2017-01-29 12:14] VITALS: BP 105/66; PULSE 105; RESP 17; TEMP 97.9; O2SAT 95
--- NOTE | 2017-01-29 14:59 | HHI.PR ---
Subjective Remarks Follow-up for intracranial hemorrhage, basilar tip aneurysm. Patient seen and examined. Patient sitting in recliner at [facility] nurses station. Reported he was in "[place]" and stated the year was "2002". When told location and year pt asked who he should believe the clinician or "the guys who told me earlier today it was 2002?" Pt noted his vision was "off this morning" He said he had "foggy vision" and that it "was like a veil was over my eyes and behind the veil there is sea grass and fish." If the sea grass was removed he's see the fish. He also reported hearing "through a bubble" and could hear screams. Upon questioning he said he could make out words from the scream. He denied the voice(s) associated with the scream was "bad" and he said "I feel safe when I hear that voice" and was "scared" when he didn't hear it. He denied feeling afraid from staff members. Pt denied body aches. No new issues noted or reported by patient. Denies dizziness with standing, any headaches, chest pain or SOB, N/V, abdominal pain bloody urine or stool. Per RN (Soniya), reported decreased agitation over night and requested discontinuation of restrain order. Otherwise no acute events overnight or since start of shift. Objective Vitals Vital Signs Date Time Temp Pulse Resp B/P Pulse Ox O2 Delivery O2 Flow Rate FiO2 01/29/17 12:14 97.9 105 17 105/66 95 01/29/17 08:14 97.6 84 20 111/76 93 01/29/17 06:12 97.0 97 18 01/29/17 06:12 71 121/71 01/29/17 00:00 97.6 89 20 125/81 99 01/28/17 20:00 98.1 107 20 129/74 96 01/28/17 16:26 97.3 99 18 132/179 96 I/O 01/28/17 01/28/17 01/28/17 01/29/17 01/29/17 01/29/17 06:59 14:59 22:59 06:59 14:59 22:59 Intake Total 380 ml 1080 ml 800 ml Balance 380 ml 1080 ml 800 ml Intake Oral 380 ml 1080 ml 800 ml # Voids 2 3 4 4 # Bowel Movements 2 Result Diagram: 01/29/17 0616 Objective Remarks GENERAL: Pt encountered sitting in reclining chair at observational nurses's station, awake and alert. SKIN: Warm and dry. HEAD: Normocephalic. EYES: No scleral icterus. No injection or drainage. NECK: Supple, trachea midline. No lymphadenopathy. CARDIOVASCULAR: Regular rate and rhythm without murmurs, gallops, or rubs. RESPIRATORY: Breath sounds equal bilaterally. No accessory muscle use. GASTROINTESTINAL: Abdomen soft, non-tender, nondistended. Bowel sounds present in all quadrants. MUSCULOSKELETAL: No cyanosis, or edema. PSYCHIATRIC: Pt alert and oriented to self only. He did not evidence overt signs of anxiety or depression. Auditory hallucination noted (see Subjective portion of report). Pt was pleasant and cooperative. Procedures 10/05/16 right frontal twist drill for ventriculostomy placement 10/20/16 arterial line placement 10/23/16 bedside percutaneous tracheostomy under direct bronchoscopic visualization 10/24/16 PEG tube placement at bedside Medications and IVs Current Medications Medications (Trade) Dose Ordered Sig/Nava Route Start Time Stop Time Status Last Admin (Tylenol) 650 mg Q6H PRN PO 10/05/16 02:45 01/08/17 20:27 (Tears Naturale Opth Soln) 1 drop TID EACH EYE 10/05/16 09:00 01/27/17 16:20 (Zofran Inj) 4 mg Q6H PRN IV 10/05/16 02:45 11/27/16 23:26 Miscellaneous Information 1 Q361D XX 10/05/16 02:45 10/05/16 02:45 (Chlorhexidine 2% Cloth) 3 pack Taper DAILY@04 TOP 10/05/16 04:00 10/01/17 03:59 01/02/17 04:00 (Chlorhexidine 2% Cloth) 3 pack UNSCH PRN TOP 10/05/16 02:45 (Pravachol) 40 mg DAILY PO 10/05/16 09:00 01/29/17 09:00 (Lovenox Inj) 40 mg Q24H SQ 10/23/16 21:00 01/28/17 20:33 (Trandate) 100 mg Q8H PO 11/03/16 20:00 01/29/17 06:15 (Norvasc) 5 mg DAILY PO 11/04/16 09:00 01/29/17 09:00 (Mycostatin Powder) 1 applic TID TOPICAL 11/06/16 09:00 01/18/17 18:36 (Lactinex) 1 tab Q12HR PO 11/06/16 21:00 01/29/17 09:00 (SEROquel) 25 mg BID@09,12 PO 11/07/16 09:00 01/29/17 11:04 (Colace Liq) 100 mg Q12H PRN G-TUBE 11/06/16 17:00 12/11/16 21:59 (Imodium) 2 mg UNSCH PRN PO 11/09/16 09:45 11/29/16 12:57 (Lomotil Tab) 1 tab Q6H PRN PO 11/09/16 09:45 (Lactulose Liq) 30 ml QID PRN PO 12/09/16 13:45 (K-Lyte Cl Eff) 50 meq Q12HR NG 12/13/16 09:00 01/29/17 09:00 (Protonix) 40 mg DAILY PO 12/16/16 09:00 01/29/17 09:00 (Benadryl) 50 mg Q6H PRN PO 12/20/16 17:45 01/28/17 20:37 (SEROquel) 50 mg HS PO 01/19/17 21:00 01/28/17 20:32 Urinary Catheter: No A/P Problem List: (1) 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 ICD Code: I60.8 Status: Acute (2) Hypertension ICD Code: I10 Status: Chronic (3) Major neurocognitive disorder due to vascular disease, without behavioral disturbance, severe ICD Code: F01.50 Status: Acute (4) Septic shock ICD Code: A41.9 Status: Resolved (5) Hydrocephalus ICD Code: G91.9 Status: Acute (6) Intracranial hemorrhage ICD Code: I62.9 Status: Acute (7) Major neurocognitive disorder as late effect of traumatic brain injury with behavioral disturbance ICD Code: S06.9X9S Status: Acute (8) Encephalopathy ICD Code: G93.40 Status: Acute (9) Sepsis ICD Code: A41.9 Status: Resolved (10) Pneumonia ICD Code: J18.9 Status: Acute (11) Protein-calorie malnutrition, mild ICD Code: E44.1 Status: Acute (12) Acute respiratory failure with hypoxia and hypercarbia ICD Code: J96.01 Status: Acute Assessment and Plan Mr. Nunez is a 51 year old male who was brought to the hospital as a trauma alert due to head injury after he fell in the bathroom and hit his head. Patient was unresponsive for approximately 15 minutes by the time ambulance services arrived. His mentation waxed and waned with GCS ranging from [address] head indicated subarachnoid hemorrhage, acute. Auditory hallucinations: psychiatry consult placed. Intracranial hemorrhage, status post basilar artery coiling 10/05, Status post RESIDENTIAL INSTRUCTOR shunt on 11/24/2016 Chronic encephalopathy Hydrocephalus Cortical blindness - Continue Keppra. Level <2.0. - Neurology signed off. Neuropsychology following patient ultimately for discharge placement and assistance with recommendations. Per neuropsych note, ongoing areas of concern include behavioral impulsivity, lack of insight and judgement. - Speech therapy recommends regular diet with thin liquids, Patient is eating well. PEG dc'd 01/08/17. - Cont PT/OT. - Continue Seroquel 50mg qhs. Intermittent agitation, less reported. LLQ and suprapubic abdominal pain, resolved. - Denies any abdominal pain today. - UA negative, KUB unremarkable and CBC unremarkable. Acute hypoxic hypercarbic respiratory failure, resolved - Tracheostomy 10/23/16, removed, old trach site healed. - Follow respiratory status Cerebral salt wasting: - Follow sodium levels, labs stable - Florinef to 0.2 mg PO q48hrs. -labs stable, d/c Florinef (01/25/17). C. difficile colitis, resolved -Completed Flagyl on 10/23 -Follow for diarrhea, denies any at this time. -Cont Lactinex Hypokalemia, resolved: Continue scheduled KCL 50 meq PO BID. Follow and replace as needed. Auditory Hallucinations: Psychiatry consulted. DVT prophylaxis: SCDs, YOUSIF hose, Lovenox. Ambulation. GI prophylaxis: Protonix. Discussed with Pt, RN, and Dr. James Discharge Planning Discharge planning ongoing. Issues seem to be related to finding an accepting facility as well as payor source. It was noted pt may be discharged to home, CM continues to address this possibility. Pt's is pursuing guardianship of pt, based on documents she is requesting to be completed. Pt's safety is also in question due to his cognitive status. Neuropsychological testing results in EMR. Insight and awareness are greatly impaired. Problem Qualifiers (1) Hypertension: Qualified Code: I10 - Essential hypertension Manolo Alvarez Jr. Jan 29, 2017 14:59
[2017-01-29 16:00] VITALS: BP 117/62; PULSE 99; RESP 18; TEMP 97.8; O2SAT 96
[2017-01-29 19:51] VITALS: BP 145/83; PULSE 102; RESP 19; TEMP 97.8; O2SAT 100
[2017-01-29] MEDS: diphenhydrAMINE HCL 50 MG CAP PO PRN (20:15)
[2017-01-29] MEDS: ENOXAPARIN SODIUM 40 MG/0.4 ML SYRINGE SQ SCH (20:15)
[2017-01-30 04:00] VITALS: BP 116/69; PULSE 80; RESP 20; TEMP 98.3; O2SAT 95
[2017-01-30] MEDS: CHLORHEXIDINE GLUCONATE 2 % 1 PACK (2 CLOTHS) TOP SCH (04:00)
[2017-01-30] MEDS: LABETALOL HCL 100 MG TAB PO SCH ×3 (05:03→20:23)
[2017-01-30 07:52] VITALS: BP 127/91; PULSE 82; RESP 18; TEMP 97.4; O2SAT 98
[2017-01-30] MEDS: NYSTATIN 100,000 U/GM PWD 15 GM BTL TOPICAL SCH ×3 (09:00→18:00)
[2017-01-30] MEDS: ARTIFICIAL TEARS OPTH SOLN 15 ML BTL EACH EYE SCH ×3 (09:00→18:00)
[2017-01-30] MEDS: amLODIPine BESYLATE 5 MG TAB PO SCH (09:19)
[2017-01-30] MEDS: PANTOPRAZOLE SOD 40 MG DELAYED RELEASE TAB PO SCH (09:19)
[2017-01-30] MEDS: PRAVASTATIN SOD 40 MG TAB PO SCH (09:19)
[2017-01-30] MEDS: LACTOBACILLUS ACIDOPHILUS TAB PO SCH ×2 (09:19→20:23)
[2017-01-30] MEDS: POTASSIUM CHLORIDE 25 MEQ EFFERVESCENT TAB NG SCH ×2 (09:19→20:29)
[2017-01-30] MEDS: QUEtiapine FUMARATE 25 MG TAB PO SCH (09:19)
--- NOTE | 2017-01-30 11:35 | HHI.PR ---
Subjective Remarks Follow-up for intracranial hemorrhage, basilar tip aneurysm. Patient seen and examined. Patient sitting in recliner at nurses station with MACHINE WHITENER. Patient alert to person only. asking where the first battalion is located. No new issues noted or reported by patient or nursing Denies dizziness with standing, any headaches, chest pain or SOB, N/V, abdominal pain bloody urine or stool. Objective Vitals Vital Signs Date Time Temp Pulse Resp B/P Pulse Ox O2 Delivery O2 Flow Rate FiO2 01/30/17 07:52 97.4 82 18 127/91 98 01/30/17 04:00 98.3 80 20 116/69 95 01/29/17 19:51 97.8 102 19 145/83 100 01/29/17 16:00 97.8 99 18 117/62 96 01/29/17 12:14 97.9 105 17 105/66 95 I/O 01/29/17 01/29/17 01/29/17 01/30/17 01/30/17 01/30/17 07:00 15:00 23:00 07:00 15:00 23:00 Intake Total 960 ml 480 ml Balance 960 ml 480 ml Intake Oral 960 ml 480 ml # Voids 4 5 2 # Bowel Movements 1 Result Diagram: 01/29/17 0616 Objective Remarks GENERAL: Pt encountered sitting in reclining chair at observational nurses's station, awake and alert. SKIN: Warm and dry. HEAD: Normocephalic. EYES: No scleral icterus. No injection or drainage. NECK: Supple, trachea midline. No lymphadenopathy. CARDIOVASCULAR: Regular rate and rhythm without murmurs, gallops, or rubs. RESPIRATORY: Breath sounds equal bilaterally. No accessory muscle use. GASTROINTESTINAL: Abdomen soft, non-tender, nondistended. Bowel sounds present in all quadrants. MUSCULOSKELETAL: No cyanosis, or edema. PSYCHIATRIC: Pt alert and oriented to self only. He did not evidence overt signs of anxiety or depression. 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 ICD Code: I60.8 Status: Acute (2) Hypertension ICD Code: I10 Status: Chronic (3) Major neurocognitive disorder due to vascular disease, without behavioral disturbance, severe ICD Code: F01.50 Status: Acute (4) Septic shock ICD Code: A41.9 Status: Resolved (5) Hydrocephalus ICD Code: G91.9 Status: Acute (6) Intracranial hemorrhage ICD Code: I62.9 Status: Acute (7) Major neurocognitive disorder as late effect of traumatic brain injury with behavioral disturbance ICD Code: S06.9X9S Status: Acute (8) Encephalopathy ICD Code: G93.40 Status: Acute (9) Sepsis ICD Code: A41.9 Status: Resolved (10) Pneumonia ICD Code: J18.9 Status: Acute (11) Protein-calorie malnutrition, mild ICD Code: E44.1 Status: Acute (12) Acute respiratory failure with hypoxia and hypercarbia ICD Code: J96.01 Status: Acute Assessment and Plan Mr. Nunez is a 51 year old male who was brought to the hospital as a trauma alert due to head injury after he fell in the bathroom and hit his head. Patient was unresponsive for approximately 15 minutes by the time ambulance services arrived. His mentation waxed and waned with GCS ranging from [address] head indicated subarachnoid hemorrhage, acute. Auditory hallucinations: psychiatry consulted Intracranial hemorrhage, status post basilar artery coiling 10/05, Status post ARMORED TRANSPORT SERVICE MANAGER shunt on 11/24/2016 Chronic encephalopathy Hydrocephalus Cortical blindness - Continue Keppra. Level <2.0. - Neurology signed off. Neuropsychology following patient ultimately for discharge placement and assistance with recommendations. Per neuropsych note, ongoing areas of concern include behavioral impulsivity, lack of insight and judgement. - Speech therapy recommends regular diet with thin liquids, Patient is eating well. PEG dc'd 01/08/17. - Cont PT/OT. - Continue Seroquel 50mg qhs. Intermittent agitation, less reported. LLQ and suprapubic abdominal pain, resolved. - Denies any abdominal pain today. - UA negative, KUB unremarkable and CBC unremarkable. Acute hypoxic hypercarbic respiratory failure, resolved - Tracheostomy 10/23/16, removed, old trach site healed. - Follow respiratory status Cerebral salt wasting: - Follow sodium levels, labs stable - Florinef to 0.2 mg PO q48hrs. -labs stable, d/c Florinef (01/25/17). -Repeat BMP in AM C. difficile colitis, resolved -Completed Flagyl on 10/23 -Follow for diarrhea, denies any at this time. -Cont Lactinex Hypokalemia, resolved: Continue scheduled KCL 50 meq PO BID. Follow and replace as needed. Auditory Hallucinations: Psychiatry consulted. DVT prophylaxis: SCDs, YOUSIF hose, Lovenox. Ambulation. GI prophylaxis: Protonix. Discussed with Pt, RN, and Dr. James Discharge Planning Discharge planning ongoing. CM continues to address Pt's safety is also in question due to his cognitive status. Neuropsychological testing results in EMR. Insight and awareness are greatly impaired. Problem Qualifiers (1) Hypertension: Qualified Code: I10 - Essential hypertension Vane Celestin Jan 30, 2017 11:35
[2017-01-30 12:03] VITALS: BP 131/81; PULSE 106; RESP 18; TEMP 97.5; O2SAT 94
--- NOTE | 2017-01-30 12:15 | PD.PSY.CON ---
Provisional Diagnosis Admission Date Oct 05, 2016 at 02:26 [place] I. Unspecified psychosis, Major neurocognitive disorder due to TBI without behavioral disturbances, [place] II. Deferred [place] III. HTN History of Present Illness Service Psychiatry Consult Requested By Major neurocognitive disorder due to TBI Primary Care Physician HPI The patient 51-year-old man, , unemployed, domicile with his in [facility], father of 2 kids, without any previous psychiatric history, no previous psychiatric hospitalizations, no previous suicidal attempts, medical history hypertension, headaches, who was brought to the hospital as a trauma alert due to head injury after he fell in the bathroom and hit his head. Patient was unresponsive for approximately 15 minutes by the time ambulance services arrived. His mentation waxed and waned with GCS ranging from [address] head indicated subarachnoid hemorrhage, acute. Patient has been presenting Auditory hallucinations. On psychiatric evaluation patient is found in the nurse station sitting down. He is calm and cooperative, but confused and disoriented and with frequent confabulatory statements. Patient does not know the reason of his hospitalization, he says that he is here in the hospital because his girlfriend I yesterday in a car accident. As the patient tells us this he starts crying. But he was easily redirectable and goes back to initial mood. Patient reports good mood, he says that he is happy and he is waiting for his uncle to bring him a jacket form [place]. He actually thinks he is right now in [place] In prison because I have killed over 30 people". Patient is disoriented in time and place. Recent and immediate recall impaired. He also seems to be having with vision and executive function related with visual activities. However, his language, naming, abstract thinking, concentration seems to be conserved. He denies visual and auditory hallucinations, he denies suicidal and homicidal ideation. But, during the conversation in multiple occasions he says that people are coming inside his room "coming form the window". No agitation, no aggressive behavior, no hostility, no acute paranoia are observed at this moment. 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 He never had any psychiatric history, he did not use any drugs or alcohol. He described him as a very hard-working man, sleeping , good father. Never had any problems with the law. There have any suicidal ideation or attempts, never took any psychotropic. Patient was never an aggressive person. Review of Systems Constitutional: DENIES: Diaphoretic episodes, Fatigue, Fever, Weight gain, Weight loss, Chills, Dizziness, Change in appetite, Night Sweats Endocrine: DENIES: Heat/cold intolerance, Polydipsia, Polyuria, Polyphagia Eyes: DENIES: Blurred vision, Diplopia, Eye inflammation, Eye pain, Vision loss , Photosensitivity, Double Vision Ears, nose, mouth, throat: DENIES: Tinnitus, Hearing loss, Vertigo, Nasal discharge, Oral lesions, Throat pain, Hoarseness, Ear Pain, Running Nose, Epistaxis, Sinus Pain, Toothache, Odynophagia Respiratory: DENIES: Apneas, Cough, Snoring, Wheezing, Hemoptysis, Sputum production, Shortness of breath Cardiovascular: DENIES: Chest pain, Palpitations, Syncope, Dyspnea on Exertion , PND, Lower Extremity Edema, Orthopnea, Claudication Gastrointestinal: DENIES: Abdominal pain, Black stools, Bloody stools, Constipation, Diarrhea, Nausea, Vomiting, Difficulty Swallowing, Anorexia Musculoskeletal: DENIES: Joint pain, Muscle aches, Stiffness, Joint Swelling, Back pain, Neck pain Integumentary: DENIES: Abnormal pigmentation, Nail changes, Pruritus, Rash Hematologic/lymphatic: DENIES: Bruising, Lymphadenopathy Immunologic/allergic: DENIES: Eczema, Urticaria Neurologic: DENIES: Abnormal gait, Headache, Localized weakness, Paresthesias, Seizures, Speech Problems, Tremor, Poor Balance Psychiatric: DENIES: Anxiety, Confusion, Mood changes, Depression, Hallucinations, Agitation, Suicidal Ideation, Homicidal Ideation, Delusions Past Family Social History Coded Allergies: Penicillin (Verified Allergy, Unknown, 10/06/16) Sulfa (Verified Allergy, Unknown, 10/06/16) Current Medications Medications (Trade) Dose Ordered Sig/Nava Route Start Time Stop Time Status Last Admin (Tylenol) 650 mg Q6H PRN PO 10/05/16 02:45 01/08/17 20:27 (Tears Naturale Opth Soln) 1 drop TID EACH EYE 10/05/16 09:00 01/27/17 16:20 (Zofran Inj) 4 mg Q6H PRN IV 10/05/16 02:45 11/27/16 23:26 Miscellaneous Information 1 Q361D XX 10/05/16 02:45 10/05/16 02:45 (Chlorhexidine 2% Cloth) 3 pack Taper DAILY@04 TOP 10/05/16 04:00 10/01/17 03:59 01/02/17 04:00 (Chlorhexidine 2% Cloth) 3 pack UNSCH PRN TOP 10/05/16 02:45 (Pravachol) 40 mg DAILY PO 10/05/16 09:00 01/30/17 09:19 (Lovenox Inj) 40 mg Q24H SQ 10/23/16 21:00 01/29/17 20:15 (Trandate) 100 mg Q8H PO 11/03/16 20:00 01/30/17 05:03 (Norvasc) 5 mg DAILY PO 11/04/16 09:00 01/30/17 09:19 (Mycostatin Powder) 1 applic TID TOPICAL 11/06/16 09:00 01/18/17 18:36 (Lactinex) 1 tab Q12HR PO 11/06/16 21:00 01/30/17 09:19 (SEROquel) 25 mg BID@09,12 PO 11/07/16 09:00 01/30/17 09:19 (Colace Liq) 100 mg Q12H PRN G-TUBE 11/06/16 17:00 12/11/16 21:59 (Imodium) 2 mg UNSCH PRN PO 11/09/16 09:45 11/29/16 12:57 (Lomotil Tab) 1 tab Q6H PRN PO 11/09/16 09:45 (Lactulose Liq) 30 ml QID PRN PO 12/09/16 13:45 (K-Lyte Cl Eff) 50 meq Q12HR NG 12/13/16 09:00 01/30/17 09:19 (Protonix) 40 mg DAILY PO 12/16/16 09:00 01/30/17 09:19 (Benadryl) 50 mg Q6H PRN PO 12/20/16 17:45 01/29/17 20:15 (SEROquel) 50 mg HS PO 01/19/17 21:00 01/29/17 20:15 Family History No family psychiatric history as per Social History Patient was born and raised in [place], he lives in [place] was , has 2 kids, unemployed this moment, 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 2) Support of his Physical Exam On physical exam, no aggressive behavior, no psychomotor agitation or retardation, no irritability, no generalized weakness, EPS, withdrawal symptoms , tremors present. Vital Signs Vital Signs Date Time Temp Pulse Resp B/P Pulse Ox O2 Delivery O2 Flow Rate FiO2 01/30/17 07:52 97.4 82 18 127/91 98 01/27/17 22:51 Room Air I/O 01/29/17 01/29/17 01/30/17 08:00 16:00 00:00 Intake Total 960 ml Balance 960 ml Lab Results 01/29/17 0616 Mental Status Examination Appearance man, tall, athletic complexity, good hygiene, age appearing, calm, superficially cooperative Speech: Hesitant, Slow Orientation: Person Thought Process: Flight of Ideas, Loose Association Thought Content: Bizarre thinking Language Appropriate grammar, fluent and spontaneous Fund of Knowledge Limited due to cognitive impairment Attention and Concentration: Good Suicidal Ideation: No Previous Suicide Attempts: No Homicidal Ideation: No Previous Homicide Attempts: No Judgment: Impulsive, Poor Affect: Irritable Affect if Inappropriate: Labile Mood: Irritable Motor Activity: Normal gait Assessment & Plan Problem List: (1) Major neurocognitive disorder due to vascular disease, without behavioral disturbance, severe Assessment & Plan: Patient presents with increased visual and auditory hallucinations. Evident cognitive impairment consistent in disorientation, recent and immediate memory impairment, executive function, confabulation and judgment, but fair abstraction, language, naming, recognition, attention and concentration. no agitation or aggressive behavior reported. Current presentation seems to be related with neurocognitive disorder secondary to his brain injury and visual hallucination maybe exacerbated by visual impairment. Will increase Seroquel to 100 mg twice a day for psychotic symptoms. Extensive support, motivation and psychoeducation provided. Avoid benzodiazepines/ anticholinergics much is possible since this medication can actually worsen crop and soil technician and induce paradoxical agitation. Will follow up. ICD Code: F01.50 Assessment & Plan Estimated LOS: Glenn Kahn MD Jan 30, 2017 12:15
--- NOTE | 2017-01-30 12:15 | PD.PSY.CON ---
Provisional Diagnosis Admission Date Oct 05, 2016 at 02:26 [place] I. Unspecified psychosis, Major neurocognitive disorder due to TBI without behavioral disturbances, [place] II. Deferred [place] III. HTN History of Present Illness Service Psychiatry Consult Requested By Major neurocognitive disorder due to TBI Primary Care Physician HPI The patient 51-year-old man, , unemployed, domicile with his in [facility], father of 2 kids, without any previous psychiatric history, no previous psychiatric hospitalizations, no previous suicidal attempts, medical history hypertension, headaches, who was brought to the hospital as a trauma alert due to head injury after he fell in the bathroom and hit his head. Patient was unresponsive for approximately 15 minutes by the time ambulance services arrived. His mentation waxed and waned with GCS ranging from [address] head indicated subarachnoid hemorrhage, acute. Patient has been presenting Auditory hallucinations. On psychiatric evaluation patient is found in the nurse station sitting down. He is calm and cooperative, but confused and disoriented and with frequent confabulatory statements. Patient does not know the reason of his hospitalization, he says that he is here in the hospital because his girlfriend I yesterday in a car accident. As the patient tells us this he starts crying. But he was easily redirectable and goes back to initial mood. Patient reports good mood, he says that he is happy and he is waiting for his uncle to bring him a jacket form [place]. He actually thinks he is right now in [place] In half-way because I have killed over 30 people". Patient is disoriented in time and place. Recent and immediate recall impaired. He also seems to be having with vision and executive function related with visual activities. However, his language, naming, abstract thinking, concentration seems to be conserved. He denies visual and auditory hallucinations, he denies suicidal and homicidal ideation. But, during the conversation in multiple occasions he says that people are coming inside his room "coming form the window". No agitation, no aggressive behavior, no hostility, no acute paranoia are observed at this moment. 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 He never had any psychiatric history, he did not use any drugs or alcohol. He described him as a very hard-working man, sleeping , good father. Never had any problems with the law. There have any suicidal ideation or attempts, never took any psychotropic. Patient was never an aggressive person. Review of Systems Constitutional: DENIES: Diaphoretic episodes, Fatigue, Fever, Weight gain, Weight loss, Chills, Dizziness, Change in appetite, Night Sweats Endocrine: DENIES: Heat/cold intolerance, Polydipsia, Polyuria, Polyphagia Eyes: DENIES: Blurred vision, Diplopia, Eye inflammation, Eye pain, Vision loss , Photosensitivity, Double Vision Ears, nose, mouth, throat: DENIES: Tinnitus, Hearing loss, Vertigo, Nasal discharge, Oral lesions, Throat pain, Hoarseness, Ear Pain, Running Nose, Epistaxis, Sinus Pain, Toothache, Odynophagia Respiratory: DENIES: Apneas, Cough, Snoring, Wheezing, Hemoptysis, Sputum production, Shortness of breath Cardiovascular: DENIES: Chest pain, Palpitations, Syncope, Dyspnea on Exertion , PND, Lower Extremity Edema, Orthopnea, Claudication Gastrointestinal: DENIES: Abdominal pain, Black stools, Bloody stools, Constipation, Diarrhea, Nausea, Vomiting, Difficulty Swallowing, Anorexia Musculoskeletal: DENIES: Joint pain, Muscle aches, Stiffness, Joint Swelling, Back pain, Neck pain Integumentary: DENIES: Abnormal pigmentation, Nail changes, Pruritus, Rash Hematologic/lymphatic: DENIES: Bruising, Lymphadenopathy Immunologic/allergic: DENIES: Eczema, Urticaria Neurologic: DENIES: Abnormal gait, Headache, Localized weakness, Paresthesias, Seizures, Speech Problems, Tremor, Poor Balance Psychiatric: DENIES: Anxiety, Confusion, Mood changes, Depression, Hallucinations, Agitation, Suicidal Ideation, Homicidal Ideation, Delusions Past Family Social History Coded Allergies: Penicillin (Verified Allergy, Unknown, 10/06/16) Sulfa (Verified Allergy, Unknown, 10/06/16) Current Medications Medications (Trade) Dose Ordered Sig/Nava Route Start Time Stop Time Status Last Admin (Tylenol) 650 mg Q6H PRN PO 10/05/16 02:45 01/08/17 20:27 (Tears Naturale Opth Soln) 1 drop TID EACH EYE 10/05/16 09:00 01/27/17 16:20 (Zofran Inj) 4 mg Q6H PRN IV 10/05/16 02:45 11/27/16 23:26 Miscellaneous Information 1 Q361D XX 10/05/16 02:45 10/05/16 02:45 (Chlorhexidine 2% Cloth) 3 pack Taper DAILY@04 TOP 10/05/16 04:00 10/01/17 03:59 01/02/17 04:00 (Chlorhexidine 2% Cloth) 3 pack UNSCH PRN TOP 10/05/16 02:45 (Pravachol) 40 mg DAILY PO 10/05/16 09:00 01/30/17 09:19 (Lovenox Inj) 40 mg Q24H SQ 10/23/16 21:00 01/29/17 20:15 (Trandate) 100 mg Q8H PO 11/03/16 20:00 01/30/17 05:03 (Norvasc) 5 mg DAILY PO 11/04/16 09:00 01/30/17 09:19 (Mycostatin Powder) 1 applic TID TOPICAL 11/06/16 09:00 01/18/17 18:36 (Lactinex) 1 tab Q12HR PO 11/06/16 21:00 01/30/17 09:19 (SEROquel) 25 mg BID@09,12 PO 11/07/16 09:00 01/30/17 09:19 (Colace Liq) 100 mg Q12H PRN G-TUBE 11/06/16 17:00 12/11/16 21:59 (Imodium) 2 mg UNSCH PRN PO 11/09/16 09:45 11/29/16 12:57 (Lomotil Tab) 1 tab Q6H PRN PO 11/09/16 09:45 (Lactulose Liq) 30 ml QID PRN PO 12/09/16 13:45 (K-Lyte Cl Eff) 50 meq Q12HR NG 12/13/16 09:00 01/30/17 09:19 (Protonix) 40 mg DAILY PO 12/16/16 09:00 01/30/17 09:19 (Benadryl) 50 mg Q6H PRN PO 12/20/16 17:45 01/29/17 20:15 (SEROquel) 50 mg HS PO 01/19/17 21:00 01/29/17 20:15 Family History No family psychiatric history as per Social History Patient was born and raised in [place], he lives in [place] was , has 2 kids, unemployed this moment, 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 2) Support of his Physical Exam On physical exam, no aggressive behavior, no psychomotor agitation or retardation, no irritability, no generalized weakness, EPS, withdrawal symptoms , tremors present. Vital Signs Vital Signs Date Time Temp Pulse Resp B/P Pulse Ox O2 Delivery O2 Flow Rate FiO2 01/30/17 07:52 97.4 82 18 127/91 98 01/27/17 22:51 Room Air I/O 01/29/17 01/29/17 01/30/17 08:00 16:00 00:00 Intake Total 960 ml Balance 960 ml Lab Results 01/29/17 0616 Mental Status Examination Appearance man, tall, athletic complexity, good hygiene, age appearing, calm, superficially cooperative Speech: Hesitant, Slow Orientation: Person Thought Process: Flight of Ideas, Loose Association Thought Content: Bizarre thinking Language Appropriate grammar, fluent and spontaneous Fund of Knowledge Limited due to cognitive impairment Attention and Concentration: Good Suicidal Ideation: No Previous Suicide Attempts: No Homicidal Ideation: No Previous Homicide Attempts: No Judgment: Impulsive, Poor Affect: Irritable Affect if Inappropriate: Labile Mood: Irritable Motor Activity: Normal gait Assessment & Plan Problem List: (1) Major neurocognitive disorder due to vascular disease, without behavioral disturbance, severe Assessment & Plan: Patient presents with increased visual and auditory hallucinations. Evident cognitive impairment consistent in disorientation, recent and immediate memory impairment, executive function, confabulation and judgment, but fair abstraction, language, naming, recognition, attention and concentration. no agitation or aggressive behavior reported. Current presentation seems to be related with neurocognitive disorder secondary to his brain injury and visual hallucination maybe exacerbated by visual impairment. Will increase Seroquel to 100 mg twice a day for psychotic symptoms. Extensive support, motivation and psychoeducation provided. Avoid benzodiazepines/ anticholinergics much is possible since this medication can actually worsen hydrometeorological technician and induce paradoxical agitation. Will follow up. ICD Code: F01.50 Assessment & Plan Estimated LOS: Glenn Kahn MD Jan 30, 2017 12:15
[2017-01-30] MEDS: QUEtiapine FUMARATE 100 MG TAB PO SCH (13:00)
[2017-01-30 15:25] VITALS: BP 130/82; PULSE 98; RESP 16; TEMP 98.1; O2SAT 97
[2017-01-30 20:13] VITALS: BP 136/79; PULSE 88; RESP 20; TEMP 97.6; O2SAT 96
[2017-01-30] MEDS: ENOXAPARIN SODIUM 40 MG/0.4 ML SYRINGE SQ SCH (20:23)
[2017-01-30] MEDS: diphenhydrAMINE HCL 50 MG CAP PO PRN (22:24)
[2017-01-31 00:34] VITALS: BP 105/68; PULSE 90; RESP 20; TEMP 98.2; O2SAT 93
[2017-01-31 04:41] VITALS: BP 113/61; PULSE 73
[2017-01-31] MEDS: LABETALOL HCL 100 MG TAB PO SCH ×3 (04:46→20:49)
[2017-01-31] MEDS: CHLORHEXIDINE GLUCONATE 2 % 1 PACK (2 CLOTHS) TOP SCH (04:49)
[2017-01-31 08:00] VITALS: BP 130/78; PULSE 74; RESP 20; TEMP 98.2; O2SAT 95
[2017-01-31] MEDS: PRAVASTATIN SOD 40 MG TAB PO SCH (08:54)
[2017-01-31] MEDS: amLODIPine BESYLATE 5 MG TAB PO SCH (08:54)
[2017-01-31] MEDS: LACTOBACILLUS ACIDOPHILUS TAB PO SCH ×2 (08:54→20:49)
[2017-01-31] MEDS: QUEtiapine FUMARATE 100 MG TAB PO SCH ×2 (08:55→12:31)
[2017-01-31] MEDS: POTASSIUM CHLORIDE 25 MEQ EFFERVESCENT TAB NG SCH ×2 (08:55→20:49)
[2017-01-31] MEDS: PANTOPRAZOLE SOD 40 MG DELAYED RELEASE TAB PO SCH (08:55)
[2017-01-31] MEDS: NYSTATIN 100,000 U/GM PWD 15 GM BTL TOPICAL SCH ×3 (08:59→18:30)
[2017-01-31] MEDS: ARTIFICIAL TEARS OPTH SOLN 15 ML BTL EACH EYE SCH ×3 (08:59→18:30)
[2017-01-31 11:33] VITALS: BP 116/73; PULSE 95; RESP 18; TEMP 98.2; O2SAT 97
[2017-01-31 15:39] VITALS: BP 123/83; PULSE 81; RESP 18; TEMP 97.6; O2SAT 98
--- NOTE | 2017-01-31 16:35 | HHI.PR ---
Subjective Remarks Follow-up for intracranial hemorrhage, basilar tip aneurysm. Patient seen and examined sitting up in recliner chair at nursing station. Patient is awake and alert. Pleasantly confused. Oriented to self, states we are in [place], [place]. Follows commands appropriately. Wearing glasses, patient states this helps his central vision some. Eating well. Ambulating well. Denies any new acute complaints overnight. Spoke to bedside RN, no new events. Objective Vitals Vital Signs Date Time Temp Pulse Resp B/P Pulse Ox O2 Delivery O2 Flow Rate FiO2 01/31/17 15:39 97.6 81 18 123/83 98 01/31/17 11:33 98.2 95 18 116/73 97 01/31/17 08:00 98.2 74 20 130/78 95 01/31/17 04:41 73 113/61 01/31/17 00:34 98.2 90 20 105/68 93 01/30/17 20:13 97.6 88 20 136/79 96 I/O 01/30/17 01/30/17 01/30/17 01/31/17 01/31/17 01/31/17 07:00 15:00 23:00 07:00 15:00 23:00 Intake Total 480 ml 480 ml 720 ml 1200 ml Balance 480 ml 480 ml 720 ml 1200 ml Intake Oral 480 ml 480 ml 720 ml 1200 ml # Voids 3 1 4 4 1 # Bowel Movements 0 2 Result Diagram: 01/29/17 0616 Imaging Last Impressions Abdomen X-Ray 01/20/17 0000 Signed Impressions: Service Date/Time: Friday, January 20, 2017 10:46 - CONCLUSION: No acute abnormality is identified. Tim Montgomery MD Head CT 12/09/16 0000 Signed Impressions: Service Date/Time: Friday, December 09, 2016 17:36 - CONCLUSION: 1. Right ventriculostomy tube remains in place with decrease in ventricular size since November 24. There is some encephalomalacia around the shunt and a probable small infarct in the left basal ganglia. No new hemorrhage or shift. Tip Harris MD Chest X-Ray 11/01/16 0600 Signed Impressions: Service Date/Time: Tuesday, November 01, 2016 04:37 - CONCLUSION: 1. No acute cardiopulmonary disease. Trevin De León MD Transcranial Doppler Study Complete 10/26/16 0700 Signed Impressions: Service Date/Time: Wednesday, October 26, 2016 08:20 - CONCLUSION: Minimal interval improvement with no evidence for vasospasm. Christian Song MD FACR Neck CTA 10/19/16 0000 Signed Impressions: Service Date/Time: Wednesday, October 19, 2016 14:19 - CONCLUSION: Negative for dissection or significant stenosis. Christian Song MD FACR Head CTA 10/19/16 0000 Signed Impressions: Service Date/Time: Wednesday, October 19, 2016 14:19 - CONCLUSION: 1. Interval development of significant vasospasm in the left MCA and SRI territories. 2. Mild vasospasm in the basilar artery.. Gume Mckeon MD Cerebral Arteriogram 10/19/16 0000 Signed Impressions: Service Date/Time: Wednesday, October 19, 2016 16:06 - CONCLUSION: 1. Vasospasm in the left MCA and SRI territories 2. Spasmolytic infusion, left internal carotid artery as above.. 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 Gume Mckeon MD Pelvis X-Ray 10/05/16109 Signed Impressions: Service Date/Time: Wednesday, October 05, 2016 01:22 - CONCLUSION: Unremarkable examination of the pelvis. Ruben Acuña Jr., MD Chest CT 10/05/16109 Signed Impressions: Service Date/Time: Wednesday, October 05, 2016 01:46 - CONCLUSION: 1. No acute intrathoracic abnormality. 2. Bibasilar atelectasis. 3. Cardiomegaly. 4. Prior granulomatous disease. Ruben Acuña Jr., MD Cervical Spine CT 10/05/16109 Signed Impressions: Service Date/Time: Wednesday, October 05, 2016 01:40 - CONCLUSION: 1. No fracture or dislocation. 2. Multilevel degenerative changes. Ruben Acuña Jr., MD Abdomen/Pelvis CT 10/05/16109 Signed Impressions: Service Date/Time: Wednesday, October 05, 2016 01:46 - CONCLUSION: 1. No acute trauma. 2. Rounded area of decreased density involving the pancreatic head. I cannot completely exclude pancreatic head mass. At some point MRI of the pancreas is suggested to further evaluate. 3. Focal area of poor enhancement involving the left kidney. This may relate to an area of parenchymal scarring. I cannot completely exclude a mass. This can be further assessed with MRI as well. Ruben Acuña Jr., MD Objective Remarks GENERAL: Well-nourished, well-developed male patient, resting in recliner chair at nursing station. Pleasantly confused. SKIN: No rash. Warm and dry. HEENT: Pupils equal round and reactive. Normocephalic. Extraocular motions intact. No scleral icterus. No injection or drainage. NECK: Trachea midline. Supple. CARDIOVASCULAR: RRR. No murmur appreciated. RESPIRATORY: Clear to auscultation. Breath sounds equal bilaterally. No wheezes , rales, or rhonchi. GASTROINTESTINAL: Abdomen soft, non-tender, nondistended. No guarding. MUSCULOSKELETAL: Extremities without clubbing, cyanosis, or edema. NEUROLOGICAL: Awake and alert. Moves all 4 extremities, equal no weakness noted. 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 ICD Code: I60.8 Status: Acute (2) Hypertension ICD Code: I10 Status: Chronic (3) Major neurocognitive disorder due to vascular disease, without behavioral disturbance, severe ICD Code: F01.50 Status: Acute (4) Septic shock ICD Code: A41.9 Status: Resolved (5) Hydrocephalus ICD Code: G91.9 Status: Acute (6) Intracranial hemorrhage ICD Code: I62.9 Status: Acute (7) Major neurocognitive disorder as late effect of traumatic brain injury with behavioral disturbance ICD Code: S06.9X9S Status: Acute (8) Encephalopathy ICD Code: G93.40 Status: Acute (9) Sepsis ICD Code: A41.9 Status: Resolved (10) Pneumonia ICD Code: J18.9 Status: Acute (11) Protein-calorie malnutrition, mild ICD Code: E44.1 Status: Acute (12) Acute respiratory failure with hypoxia and hypercarbia ICD Code: J96.01 Status: Acute Assessment and Plan Mr. Nunez is a 51 year old male who was brought to the hospital as a trauma alert due to head injury after he fell in the bathroom and hit his head. Patient was unresponsive for approximately 15 minutes by the time ambulance services arrived. His mentation waxed and waned with GCS ranging from [address] head indicated subarachnoid hemorrhage, acute. Intracranial hemorrhage, status post basilar artery coiling 10/05, Status post LEAD EMBEDDED SOFTWARE ENGINEER shunt on 11/24/2016 Chronic encephalopathy Hydrocephalus Cortical blindness Auditory hallucinations, not apparent today. - Continue Keppra. Level <2.0. - Neurology signed off. Neuropsychology following patient ultimately for discharge placement and assistance with recommendations. Per neuropsych note, ongoing areas of concern include behavioral impulsivity, lack of insight and judgement. Continues to follow. - Speech therapy recommends regular diet with thin liquids, Patient is eating well. PEG dc'd 01/08/17. - Cont PT/OT. - Continue Seroquel 100mg BID. - Psychiatry has been consulted, seen patient and following. Dx: Major neurocognitive disorder due to vascular disease, without behavioral disturbance , severe. Recommend extensive support, motivation and psychoeducation. Continue Seroquel. Acute hypoxic hypercarbic respiratory failure, resolved - Tracheostomy 10/23/16, removed, old trach site healed. - Follow respiratory status. On RA. Cerebral salt wasting: - Follow sodium levels, labs stable - Florinef to 0.2 mg PO q48hrs. Follow BMP intermittently. DVT prophylaxis: SCDs, YOUSIF hose, Lovenox. Ambulation. GI prophylaxis: Protonix. Discussed with RN and Dr. Robbins Discharge Planning Discharge planning ongoing. Issues seem to be related to finding an accepting facility as well as payor source. It was noted pt may be discharged to home, CM continues to address this possibility. Last CM note: * 01/30/17 345pm: Pt continues to be a funding and placement issue. CM continues to follow. Problem Qualifiers (1) Hypertension: Qualified Code: I10 - Essential hypertension Dariela Del Cid Jan 31, 2017 16:35
[2017-01-31 20:00] VITALS: BP 146/87; PULSE 83; RESP 20; TEMP 98; O2SAT 97
[2017-01-31] MEDS: ENOXAPARIN SODIUM 40 MG/0.4 ML SYRINGE SQ SCH (20:49)
[2017-02-01] VITALS: BP 125/79; PULSE 87; RESP 20; TEMP 97.4; O2SAT 93
[2017-02-01] MEDS: diphenhydrAMINE HCL 50 MG CAP PO PRN (00:37)
[2017-02-01 04:00] VITALS: BP 128/75; PULSE 85; RESP 20; TEMP 98; O2SAT 93
[2017-02-01] MEDS: CHLORHEXIDINE GLUCONATE 2 % 1 PACK (2 CLOTHS) TOP SCH (04:00)
[2017-02-01] MEDS: LABETALOL HCL 100 MG TAB PO SCH ×3 (06:16→21:59)
[2017-02-01 08:00] VITALS: BP 148/86; PULSE 79; RESP 18; TEMP 97.9; O2SAT 94
[2017-02-01] MEDS: PRAVASTATIN SOD 40 MG TAB PO SCH (08:50)
[2017-02-01] MEDS: NYSTATIN 100,000 U/GM PWD 15 GM BTL TOPICAL SCH ×3 (08:50→17:24)
[2017-02-01] MEDS: amLODIPine BESYLATE 5 MG TAB PO SCH (08:50)
[2017-02-01] MEDS: QUEtiapine FUMARATE 100 MG TAB PO SCH ×2 (08:50→11:56)
[2017-02-01] MEDS: LACTOBACILLUS ACIDOPHILUS TAB PO SCH ×2 (08:50→21:59)
[2017-02-01] MEDS: ARTIFICIAL TEARS OPTH SOLN 15 ML BTL EACH EYE SCH ×3 (08:50→17:24)
[2017-02-01] MEDS: POTASSIUM CHLORIDE 25 MEQ EFFERVESCENT TAB NG SCH ×2 (08:50→21:59)
[2017-02-01] MEDS: PANTOPRAZOLE SOD 40 MG DELAYED RELEASE TAB PO SCH (08:50)
[2017-02-01 12:00] VITALS: BP_SYST 122; BP_SYST 148; BP_DIAS 77; BP_DIAS 86; PULSE 79; PULSE 94; RESP 16; RESP 18; TEMP 97.8; TEMP 97.9; O2SAT 94; O2SAT 96
--- NOTE | 2017-02-01 12:35 | HHI.PR ---
Subjective Remarks Follow-up for intracranial hemorrhage, basilar tip aneurysm. Patient seen and examined. 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 Patient alert to person and place only, appears more oriented today No new issues noted or reported by patient or nursing Denies dizziness with standing, any headaches, chest pain or SOB, N/V, abdominal pain bloody urine or stool. Objective Vitals Vital Signs Date Time Temp Pulse Resp B/P Pulse Ox O2 Delivery O2 Flow Rate FiO2 02/01/17 12:00 97.8 94 16 122/77 96 02/01/17 08:00 97.9 79 18 148/86 94 02/01/17 04:00 98.0 85 20 128/75 93 02/01/17 00:00 97.4 87 20 125/79 93 01/31/17 20:00 98.0 83 20 146/87 97 01/31/17 15:39 97.6 81 18 123/83 98 I/O 01/31/17 01/31/17 01/31/17 02/01/17 02/01/17 02/01/17 07:00 15:00 23:00 07:00 15:00 23:00 Intake Total 720 ml 1200 ml 240 ml Balance 720 ml 1200 ml 240 ml Intake Oral 720 ml 1200 ml 240 ml # Voids 4 4 5 3 # Bowel Movements 0 2 0 Result Diagram: 01/29/17 0616 Objective Remarks GENERAL: Pt encountered sitting in reclining chair at observational nurses's station, awake and alert. SKIN: Warm and dry. HEAD: Normocephalic. EYES: No scleral icterus. No injection or drainage. NECK: Supple, trachea midline. No lymphadenopathy. CARDIOVASCULAR: Regular rate and rhythm without murmurs, gallops, or rubs. RESPIRATORY: Breath sounds equal bilaterally. No accessory muscle use. GASTROINTESTINAL: Abdomen soft, non-tender, nondistended. Bowel sounds present in all quadrants. MUSCULOSKELETAL: No cyanosis, or edema. PSYCHIATRIC: Pt alert and oriented to self only. He did not evidence overt signs of anxiety or depression. 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 ICD Code: I60.8 Status: Acute (2) Hypertension ICD Code: I10 Status: Chronic (3) Major neurocognitive disorder due to vascular disease, without behavioral disturbance, severe ICD Code: F01.50 Status: Acute (4) Septic shock ICD Code: A41.9 Status: Resolved (5) Hydrocephalus ICD Code: G91.9 Status: Acute (6) Intracranial hemorrhage ICD Code: I62.9 Status: Acute (7) Major neurocognitive disorder as late effect of traumatic brain injury with behavioral disturbance ICD Code: S06.9X9S Status: Acute (8) Encephalopathy ICD Code: G93.40 Status: Acute (9) Sepsis ICD Code: A41.9 Status: Resolved (10) Pneumonia ICD Code: J18.9 Status: Acute (11) Protein-calorie malnutrition, mild ICD Code: E44.1 Status: Acute (12) Acute respiratory failure with hypoxia and hypercarbia ICD Code: J96.01 Status: Acute Assessment and Plan Mr. Nunez is a 51 year old male who was brought to the hospital as a trauma alert due to head injury after he fell in the bathroom and hit his head. Patient was unresponsive for approximately 15 minutes by the time ambulance services arrived. His mentation waxed and waned with GCS ranging from [address] head indicated subarachnoid hemorrhage, acute. 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 Level <2.0. - Neurology signed off. Neuropsychology following patient ultimately for discharge placement and assistance with recommendations. Per neuropsych note, ongoing areas of concern include behavioral impulsivity, lack of insight and judgement. - Speech therapy recommends regular diet with thin liquids, Patient is eating well. PEG dc'd 01/08/17. - Cont PT/OT. - Continue Seroquel 100mg BID per psychiatry LLQ and suprapubic abdominal pain, resolved. - Denies any abdominal pain today. - UA negative, KUB unremarkable and CBC unremarkable. Acute hypoxic hypercarbic respiratory failure, resolved - Tracheostomy 10/23/16, removed, old trach site healed. - Follow respiratory status Cerebral salt wasting: - Follow sodium levels, labs stable - Florinef to 0.2 mg PO q48hrs. -labs stable, d/c Florinef (7/26/17). -Na on 01/29/17 144, continue to monitor C. difficile colitis, resolved -Completed Flagyl on 10/23 -Follow for diarrhea, denies any at this time. -Cont Lactinex Hypokalemia, resolved: Continue scheduled KCL 50 meq PO BID. Follow and replace as needed. Auditory Hallucinations: Psychiatry consulted, appreciated assistance DVT prophylaxis: SCDs, YOUSIF hose, Lovenox. Ambulation. GI prophylaxis: Protonix. Discussed with Pt, RN, and Dr. Robbins Discharge Planning Discharge planning ongoing. CM continues to address Pt's safety is also in question due to his cognitive status. Neuropsychological testing results in EMR. Insight and awareness are greatly impaired. Problem Qualifiers (1) Hypertension: Qualified Code: I10 - Essential hypertension Vane Celestin Feb 01, 2017 12:35
[2017-02-01 16:00] VITALS: BP 121/73; PULSE 91; RESP 17; TEMP 97.5; O2SAT 96
[2017-02-01 20:00] VITALS: BP 146/82; PULSE 93; RESP 20; TEMP 97.8; O2SAT 98
[2017-02-01] MEDS: ENOXAPARIN SODIUM 40 MG/0.4 ML SYRINGE SQ SCH (21:58)
[2017-02-02] VITALS: BP 128/72; PULSE 91; RESP 20; TEMP 98.3; O2SAT 96
[2017-02-02 04:00] VITALS: BP 141/81; PULSE 80; RESP 20; TEMP 98; O2SAT 95
[2017-02-02] MEDS: CHLORHEXIDINE GLUCONATE 2 % 1 PACK (2 CLOTHS) TOP SCH (04:00)
[2017-02-02] MEDS: LABETALOL HCL 100 MG TAB PO SCH ×3 (04:14→21:36)
[2017-02-02 07:59] VITALS: BP 125/76; PULSE 92; RESP 17; TEMP 98.5; O2SAT 98
[2017-02-02] MEDS: ARTIFICIAL TEARS OPTH SOLN 15 ML BTL EACH EYE SCH ×3 (09:00→21:35)
[2017-02-02] MEDS: NYSTATIN 100,000 U/GM PWD 15 GM BTL TOPICAL SCH ×3 (09:00→21:36)
[2017-02-02] MEDS: POTASSIUM CHLORIDE 25 MEQ EFFERVESCENT TAB NG SCH ×2 (10:45→21:37)
[2017-02-02] MEDS: PRAVASTATIN SOD 40 MG TAB PO SCH (10:46)
[2017-02-02] MEDS: LACTOBACILLUS ACIDOPHILUS TAB PO SCH ×2 (10:46→21:37)
[2017-02-02] MEDS: PANTOPRAZOLE SOD 40 MG DELAYED RELEASE TAB PO SCH (10:47)
[2017-02-02] MEDS: amLODIPine BESYLATE 5 MG TAB PO SCH (10:48)
[2017-02-02] MEDS: QUEtiapine FUMARATE 100 MG TAB PO SCH ×2 (10:48→14:00)
--- NOTE | 2017-02-02 11:14 | HHI.PR ---
Subjective Remarks Follow-up for intracranial hemorrhage, basilar tip aneurysm. Patient seen and examined. Patient resting in bed with nurse at bedside Patient alert to person only No new issues noted or reported by patient or nursing Denies dizziness with standing, any headaches, chest pain or SOB, N/V, abdominal pain bloody urine or stool. Objective Vitals Vital Signs Date Time Temp Pulse Resp B/P Pulse Ox O2 Delivery O2 Flow Rate FiO2 02/02/17 07:59 98.5 92 17 125/76 98 02/02/17 04:00 98.0 80 20 141/81 95 02/02/17 00:00 98.3 91 20 128/72 96 02/01/17 20:00 97.8 93 20 146/82 98 02/01/17 16:00 97.5 91 17 121/73 96 02/01/17 12:00 97.8 94 16 122/77 96 I/O 02/01/17 02/01/17 02/01/17 02/02/17 02/02/17 02/02/17 07:00 15:00 23:00 07:00 15:00 23:00 Intake Total 480 ml 240 ml Balance 480 ml 240 ml Intake Oral 480 ml 240 ml # Voids 3 5 1 5 # Bowel Movements 0 Result Diagram: 01/29/17 0616 Objective Remarks GENERAL: Pt resting in bed awakes easily with voice, in no acute distress SKIN: Warm and dry. HEAD: Normocephalic. EYES: No scleral icterus. No injection or drainage. NECK: Supple, trachea midline. No lymphadenopathy. CARDIOVASCULAR: Regular rate and rhythm without murmurs, gallops, or rubs. RESPIRATORY: Breath sounds equal bilaterally. No accessory muscle use. GASTROINTESTINAL: Abdomen soft, non-tender, nondistended. Bowel sounds present in all quadrants. MUSCULOSKELETAL: No cyanosis, or edema. PSYCHIATRIC: Pt alert and oriented to self only. No evidence overt signs of anxiety or depression. 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 ICD Code: I60.8 Status: Acute (2) Hypertension ICD Code: I10 Status: Chronic (3) Major neurocognitive disorder due to vascular disease, without behavioral disturbance, severe ICD Code: F01.50 Status: Acute (4) Septic shock ICD Code: A41.9 Status: Resolved (5) Hydrocephalus ICD Code: G91.9 Status: Acute (6) Intracranial hemorrhage ICD Code: I62.9 Status: Acute (7) Major neurocognitive disorder as late effect of traumatic brain injury with behavioral disturbance ICD Code: S06.9X9S Status: Acute (8) Encephalopathy ICD Code: G93.40 Status: Acute (9) Sepsis ICD Code: A41.9 Status: Resolved (10) Pneumonia ICD Code: J18.9 Status: Acute (11) Protein-calorie malnutrition, mild ICD Code: E44.1 Status: Acute (12) Acute respiratory failure with hypoxia and hypercarbia ICD Code: J96.01 Status: Acute Assessment and Plan Mr. Nunez is a 51 year old male who was brought to the hospital as a trauma alert due to head injury after he fell in the bathroom and hit his head. Patient was unresponsive for approximately 15 minutes by the time ambulance services arrived. His mentation waxed and waned with GCS ranging from [address] head indicated subarachnoid hemorrhage, acute. 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 Level <2.0. - Neurology signed off. Neuropsychology following patient ultimately for discharge placement and assistance with recommendations. Per neuropsych note, ongoing areas of concern include behavioral impulsivity, lack of insight and judgement. - Speech therapy recommends regular diet with thin liquids, Patient is eating well. PEG dc'd 01/08/17. - Cont PT/OT. - Continue Seroquel 100mg BID per psychiatry LLQ and suprapubic abdominal pain, resolved. - Denies any abdominal pain today. - UA negative, KUB unremarkable and CBC unremarkable. Acute hypoxic hypercarbic respiratory failure, resolved - Tracheostomy 10/23/16, removed, old trach site healed. - Follow respiratory status Cerebral salt wasting: - Follow sodium levels, labs stable - Florinef to 0.2 mg PO q48hrs. -labs stable, d/c Florinef (01/25/17). -Na on 01/29/17 144, continue to monitor recheck BMP in AM C. difficile colitis, resolved -Completed Flagyl on 10/23 -Follow for diarrhea, denies any at this time. -Cont Lactinex Hypokalemia, resolved: Continue scheduled KCL 50 meq PO BID. Follow and replace as needed. Auditory Hallucinations: Psychiatry consulted, appreciated assistance DVT prophylaxis: SCDs, YOUSIF han, Lovenox. Ambulation. GI prophylaxis: Protonix. Discussed with Pt, RN, and Dr. Robbins Discharge Planning Discharge planning ongoing. CM continues to address Pt's safety is also in question due to his cognitive status. Neuropsychological testing results in EMR. Insight and awareness are greatly impaired. Problem Qualifiers (1) Hypertension: Qualified Code: I10 - Essential hypertension Vane Celestin Feb 02, 2017 11:14
[2017-02-02 12:00] VITALS: BP 120/69; PULSE 81; RESP 18; TEMP 97.8; O2SAT 99
[2017-02-02 16:02] VITALS: BP 118/73; PULSE 84; RESP 18; TEMP 98.7; O2SAT 96
[2017-02-02 20:00] VITALS: BP 124/74; PULSE 89; RESP 18; TEMP 97.1; O2SAT 94
[2017-02-02] MEDS: ENOXAPARIN SODIUM 40 MG/0.4 ML SYRINGE SQ SCH (21:37)
[2017-02-03] VITALS: BP 123/75; PULSE 69; RESP 18; TEMP 97.9; O2SAT 95
[2017-02-03] MEDS: CHLORHEXIDINE GLUCONATE 2 % 1 PACK (2 CLOTHS) TOP SCH (04:00)
[2017-02-03 04:40] VITALS: BP 127/78; PULSE 75; RESP 18; TEMP 97.7; O2SAT 93
[2017-02-03] MEDS: LABETALOL HCL 100 MG TAB PO SCH ×3 (05:29→22:01)
[2017-02-03 08:00] VITALS: BP 117/62; PULSE 81; RESP 16; TEMP 97.8; O2SAT 98
[2017-02-03] MEDS: ARTIFICIAL TEARS OPTH SOLN 15 ML BTL EACH EYE SCH ×3 (08:35→16:23)
[2017-02-03] MEDS: LACTOBACILLUS ACIDOPHILUS TAB PO SCH ×2 (08:36→22:01)
[2017-02-03] MEDS: PANTOPRAZOLE SOD 40 MG DELAYED RELEASE TAB PO SCH (08:36)
[2017-02-03] MEDS: NYSTATIN 100,000 U/GM PWD 15 GM BTL TOPICAL SCH ×3 (08:36→16:23)
[2017-02-03] MEDS: POTASSIUM CHLORIDE 25 MEQ EFFERVESCENT TAB NG SCH ×2 (08:36→22:01)
[2017-02-03] MEDS: amLODIPine BESYLATE 5 MG TAB PO SCH (08:36)
[2017-02-03] MEDS: PRAVASTATIN SOD 40 MG TAB PO SCH (08:36)
[2017-02-03] MEDS: QUEtiapine FUMARATE 100 MG TAB PO SCH ×2 (08:36→11:40)
[2017-02-03 12:00] VITALS: BP 125/79; PULSE 78; RESP 18; TEMP 96.6; O2SAT 97
[2017-02-03 12:42] LABS: BICARBONATE 28.8 MEQ/L (21.0-32.0); CALCIUM 9.1 MG/DL (8.5-10.1); CREATININE 1.19 MG/DL (0.60-1.30)
--- NOTE | 2017-02-03 14:17 | HHI.PR ---
Subjective Remarks Follow-up for intracranial hemorrhage, basilar tip aneurysm. Patient seen and examined. Patient resting in recliner chair Patient alert to person and place only No new issues noted or reported by patient or nursing Denies dizziness with standing, any headaches, chest pain or SOB, N/V, abdominal pain bloody urine or stool. Objective Vitals Vital Signs Date Time Temp Pulse Resp B/P Pulse Ox O2 Delivery O2 Flow Rate FiO2 02/03/17 12:00 96.6 78 18 125/79 97 02/03/17 08:00 97.8 81 16 117/62 98 02/03/17 04:40 97.7 75 18 127/78 93 02/03/17 00:00 97.9 69 18 123/75 95 02/02/17 20:00 97.1 89 18 124/74 94 02/02/17 16:02 98.7 84 18 118/73 96 I/O 02/02/17 02/02/17 02/02/17 02/03/17 02/03/17 02/03/17 07:00 15:00 23:00 07:00 15:00 23:00 Intake Total 560 ml Balance 560 ml Intake Oral 560 ml # Voids 5 4 # Bowel Movements 0 Result Diagram: 02/03/17 1116 Objective Remarks GENERAL: Pt resting in recliner chair awakes easily with voice, in no acute distress SKIN: Warm and dry. HEAD: Normocephalic. EYES: No scleral icterus. No injection or drainage. NECK: Supple, trachea midline. No lymphadenopathy. CARDIOVASCULAR: Regular rate and rhythm without murmurs, gallops, or rubs. RESPIRATORY: Breath sounds equal bilaterally. No accessory muscle use. GASTROINTESTINAL: Abdomen soft, non-tender, nondistended. Bowel sounds present in all quadrants. MUSCULOSKELETAL: No cyanosis, or edema. PSYCHIATRIC: Pt alert and oriented to person and place only. No evidence overt signs of anxiety or depression. 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 ICD Code: I60.8 Status: Acute (2) Hypertension ICD Code: I10 Status: Chronic (3) Major neurocognitive disorder due to vascular disease, without behavioral disturbance, severe ICD Code: F01.50 Status: Acute (4) Septic shock ICD Code: A41.9 Status: Resolved (5) Hydrocephalus ICD Code: G91.9 Status: Acute (6) Intracranial hemorrhage ICD Code: I62.9 Status: Acute (7) Major neurocognitive disorder as late effect of traumatic brain injury with behavioral disturbance ICD Code: S06.9X9S Status: Acute (8) Encephalopathy ICD Code: G93.40 Status: Acute (9) Sepsis ICD Code: A41.9 Status: Resolved (10) Pneumonia ICD Code: J18.9 Status: Acute (11) Protein-calorie malnutrition, mild ICD Code: E44.1 Status: Acute (12) Acute respiratory failure with hypoxia and hypercarbia ICD Code: J96.01 Status: Acute Assessment and Plan Mr. Nunez is a 51 year old male who was brought to the hospital as a trauma alert due to head injury after he fell in the bathroom and hit his head. Patient was unresponsive for approximately 15 minutes by the time ambulance services arrived. His mentation waxed and waned with GCS ranging from [address] head indicated subarachnoid hemorrhage, acute. 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 Level <2.0. - Neurology signed off. Neuropsychology following patient ultimately for discharge placement and assistance with recommendations. Per neuropsych note, ongoing areas of concern include behavioral impulsivity, lack of insight and judgement. - Speech therapy recommends regular diet with thin liquids, Patient is eating well. PEG dc'd 01/08/17. - Cont PT/OT. - Continue Seroquel 100mg BID per psychiatry LLQ and suprapubic abdominal pain, resolved. - Denies any abdominal pain today. - UA negative, KUB unremarkable and CBC unremarkable. Acute hypoxic hypercarbic respiratory failure, resolved - Tracheostomy 10/23/16, removed, old trach site healed. - Follow respiratory status Cerebral salt wasting- stable - Follow sodium levels, labs stable - Florinef to 0.2 mg PO q48hrs. -labs stable, d/c Florinef (01/25/17). -Na on 01/29/17 144, 02/03/17 144 C. difficile colitis, resolved -Completed Flagyl on 10/23 -Follow for diarrhea, denies any at this time. -Cont Lactinex Hypokalemia, resolved: Continue scheduled KCL 50 meq PO BID. Follow and replace as needed. Auditory Hallucinations: Psychiatry consulted, appreciated assistance DVT prophylaxis: SCDs, YOUSIF han, Lovenox. Ambulation. GI prophylaxis: Protonix. Discussed with Pt, RN, and Dr. Robbins Discharge Planning Discharge planning ongoing. CM continues to address Pt's safety is also in question due to his cognitive status. Neuropsychological testing results in EMR. Insight and awareness are greatly impaired. Problem Qualifiers (1) Hypertension: Qualified Code: I10 - Essential hypertension Vane Celestin Feb 03, 2017 14:17
[2017-02-03 16:00] VITALS: BP 136/67; PULSE 97; RESP 18; TEMP 98.5; O2SAT 98
[2017-02-03 20:00] VITALS: BP 132/82; PULSE 90; RESP 17; TEMP 97.7; O2SAT 98
[2017-02-03] MEDS: ENOXAPARIN SODIUM 40 MG/0.4 ML SYRINGE SQ SCH (22:01)
[2017-02-04] VITALS: BP 128/80; PULSE 64; RESP 19; TEMP 97.1; O2SAT 97
[2017-02-04] MEDS: CHLORHEXIDINE GLUCONATE 2 % 1 PACK (2 CLOTHS) TOP SCH (01:07)
[2017-02-04 04:00] VITALS: BP 125/87; PULSE 92; RESP 17; TEMP 98.1; O2SAT 97
[2017-02-04] MEDS: LABETALOL HCL 100 MG TAB PO SCH ×3 (04:51→20:00)
[2017-02-04 08:00] VITALS: BP 124/76; PULSE 84; RESP 20; TEMP 97.8; O2SAT 98
[2017-02-04] MEDS: PANTOPRAZOLE SOD 40 MG DELAYED RELEASE TAB PO SCH (08:08)
[2017-02-04] MEDS: ARTIFICIAL TEARS OPTH SOLN 15 ML BTL EACH EYE SCH ×3 (08:08→16:03)
[2017-02-04] MEDS: LACTOBACILLUS ACIDOPHILUS TAB PO SCH ×2 (08:08→20:32)
[2017-02-04] MEDS: PRAVASTATIN SOD 40 MG TAB PO SCH (08:09)
[2017-02-04] MEDS: amLODIPine BESYLATE 5 MG TAB PO SCH (08:09)
[2017-02-04] MEDS: QUEtiapine FUMARATE 100 MG TAB PO SCH ×2 (08:09→12:18)
[2017-02-04] MEDS: NYSTATIN 100,000 U/GM PWD 15 GM BTL TOPICAL SCH ×3 (08:09→16:03)
[2017-02-04] MEDS: POTASSIUM CHLORIDE 25 MEQ EFFERVESCENT TAB NG SCH ×2 (08:09→20:31)
[2017-02-04 12:00] VITALS: BP 114/71; PULSE 91; RESP 20; TEMP 98; O2SAT 97
--- NOTE | 2017-02-04 12:37 | HHI.PR ---
Subjective Remarks Follow-up for intracranial hemorrhage, basilar tip aneurysm. Patient seen and examined. Patient resting in bed Patient alert to person only No new issues noted or reported by patient or nursing Denies dizziness with standing, any headaches, chest pain or SOB, N/V, abdominal pain bloody urine or stool. Objective Vitals Vital Signs Date Time Temp Pulse Resp B/P Pulse Ox O2 Delivery O2 Flow Rate FiO2 02/04/17 08:00 97.8 84 20 124/76 98 02/04/17 04:00 98.1 92 17 125/87 97 02/04/17 00:00 97.1 64 19 128/80 97 02/03/17 20:00 97.7 90 17 132/82 98 02/03/17 16:00 98.5 97 18 136/67 98 I/O 02/03/17 02/03/17 02/03/17 02/04/17 02/04/17 02/04/17 07:00 15:00 23:00 07:00 15:00 23:00 Intake Total 900 ml 1000 ml Balance 900 ml 1000 ml Intake Oral 900 ml 1000 ml # Voids 5 Result Diagram: 02/03/17 1116 Objective Remarks GENERAL: Pt resting in recliner chair awakes easily with voice, in no acute distress SKIN: Warm and dry. HEAD: Normocephalic. EYES: No scleral icterus. No injection or drainage. NECK: Supple, trachea midline. No lymphadenopathy. CARDIOVASCULAR: Regular rate and rhythm without murmurs, gallops, or rubs. RESPIRATORY: Breath sounds equal bilaterally. No accessory muscle use. GASTROINTESTINAL: Abdomen soft, non-tender, nondistended. Bowel sounds present in all quadrants. MUSCULOSKELETAL: No cyanosis, or edema. PSYCHIATRIC: Pt alert and oriented to person and place only. No evidence overt signs of anxiety or depression. 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 ICD Code: I60.8 Status: Acute (2) Hypertension ICD Code: I10 Status: Chronic (3) Major neurocognitive disorder due to vascular disease, without behavioral disturbance, severe ICD Code: F01.50 Status: Acute (4) Septic shock ICD Code: A41.9 Status: Resolved (5) Hydrocephalus ICD Code: G91.9 Status: Acute (6) Intracranial hemorrhage ICD Code: I62.9 Status: Acute (7) Major neurocognitive disorder as late effect of traumatic brain injury with behavioral disturbance ICD Code: S06.9X9S Status: Acute (8) Encephalopathy ICD Code: G93.40 Status: Acute (9) Sepsis ICD Code: A41.9 Status: Resolved (10) Pneumonia ICD Code: J18.9 Status: Acute (11) Protein-calorie malnutrition, mild ICD Code: E44.1 Status: Acute (12) Acute respiratory failure with hypoxia and hypercarbia ICD Code: J96.01 Status: Acute Assessment and Plan Mr. Nunez is a 51 year old male who was brought to the hospital as a trauma alert due to head injury after he fell in the bathroom and hit his head. Patient was unresponsive for approximately 15 minutes by the time ambulance services arrived. His mentation waxed and waned with GCS ranging from [address] head indicated subarachnoid hemorrhage, acute. 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 Level <2.0. - Neurology signed off. Neuropsychology following patient ultimately for discharge placement and assistance with recommendations. Per neuropsych note, ongoing areas of concern include behavioral impulsivity, lack of insight and judgement. - Speech therapy recommends regular diet with thin liquids, Patient is eating well. PEG dc'd 01/08/17. - Cont PT/OT. - Continue Seroquel 100mg BID per psychiatry LLQ and suprapubic abdominal pain, resolved. - Denies any abdominal pain today. - UA negative, KUB unremarkable and CBC unremarkable. Acute hypoxic hypercarbic respiratory failure, resolved - Tracheostomy 10/23/16, removed, old trach site healed. - Follow respiratory status Cerebral salt wasting- stable - Follow sodium levels, labs stable - Florinef to 0.2 mg PO q48hrs. -labs stable, d/c Florinef (01/25/17). -Na on 01/29/17 144, 02/03/17 144 C. difficile colitis, resolved -Completed Flagyl on 10/23 -Follow for diarrhea, denies any at this time. -Cont Lactinex Hypokalemia, resolved: Continue scheduled KCL 50 meq PO BID. Follow and replace as needed. Auditory Hallucinations: Psychiatry consulted, appreciated assistance DVT prophylaxis: SCDs, YOUSIF han, Lovenox. Ambulation. GI prophylaxis: Protonix. Discussed with Pt, RN, and Dr. Robbins Discharge Planning Discharge planning ongoing. CM continues to address Pt's safety is also in question due to his cognitive status. Neuropsychological testing results in EMR. Insight and awareness are greatly impaired. Problem Qualifiers (1) Hypertension: Qualified Code: I10 - Essential hypertension Vane Celestin Feb 04, 2017 12:37
[2017-02-04 16:00] VITALS: BP 115/65; PULSE 111; RESP 20; TEMP 98.1; O2SAT 96
[2017-02-04 20:27] VITALS: BP 108/75; PULSE 102; RESP 18; TEMP 98.3; O2SAT 98
[2017-02-04] MEDS: ENOXAPARIN SODIUM 40 MG/0.4 ML SYRINGE SQ SCH (20:32)
[2017-02-05] VITALS: BP 129/83; PULSE 94; RESP 20; TEMP 98.1; O2SAT 95
[2017-02-05] MEDS: CHLORHEXIDINE GLUCONATE 2 % 1 PACK (2 CLOTHS) TOP SCH (03:12)
[2017-02-05 05:54] VITALS: BP 134/83; PULSE 92; RESP 20; TEMP 98.2; O2SAT 94
[2017-02-05] MEDS: LABETALOL HCL 100 MG TAB PO SCH ×3 (06:40→21:02)
[2017-02-05 08:43] VITALS: BP 145/86; PULSE 86; RESP 17; TEMP 97.9; O2SAT 93
[2017-02-05] MEDS: NYSTATIN 100,000 U/GM PWD 15 GM BTL TOPICAL SCH ×3 (09:00→17:04)
[2017-02-05] MEDS: POTASSIUM CHLORIDE 25 MEQ EFFERVESCENT TAB NG SCH ×2 (09:20→21:02)
[2017-02-05] MEDS: LACTOBACILLUS ACIDOPHILUS TAB PO SCH ×2 (09:20→21:02)
[2017-02-05] MEDS: ARTIFICIAL TEARS OPTH SOLN 15 ML BTL EACH EYE SCH ×3 (09:20→17:04)
[2017-02-05] MEDS: PANTOPRAZOLE SOD 40 MG DELAYED RELEASE TAB PO SCH (09:20)
[2017-02-05] MEDS: PRAVASTATIN SOD 40 MG TAB PO SCH (09:20)
[2017-02-05] MEDS: QUEtiapine FUMARATE 100 MG TAB PO SCH ×2 (09:20→13:55)
[2017-02-05] MEDS: amLODIPine BESYLATE 5 MG TAB PO SCH (09:20)
[2017-02-05 12:07] VITALS: BP_SYST 122; PULSE 94; RESP 20; TEMP 98.2; O2SAT 93
--- NOTE | 2017-02-05 12:13 | HHI.PR ---
Subjective Remarks Follow-up for intracranial hemorrhage, basilar tip aneurysm. Patient seen and examined. Patient resting in bed wakes easily with verbal stimuli Patient alert to person only No new issues noted or reported by patient or nursing Denies dizziness with standing, any headaches, chest pain or SOB, N/V, abdominal pain bloody urine or stool. Objective Vitals Vital Signs Date Time Temp Pulse Resp B/P Pulse Ox O2 Delivery O2 Flow Rate FiO2 02/05/17 12:07 98.2 94 20 122/ 93 02/05/17 08:43 97.9 86 17 145/86 93 02/05/17 05:54 98.2 92 20 134/83 94 02/05/17 00:00 98.1 94 20 129/83 95 02/04/17 20:27 98.3 102 18 108/75 98 02/04/17 16:00 98.1 111 20 115/65 96 I/O 02/04/17 02/04/17 02/04/17 02/05/17 02/05/17 02/05/17 07:00 15:00 23:00 07:00 15:00 23:00 Intake Total 1000 ml 1200 ml Balance 1000 ml 1200 ml Intake Oral 1000 ml 1200 ml # Voids 5 3 4 # Bowel Movements 1 1 1 Result Diagram: 02/03/17 1116 Objective Remarks GENERAL: Pt resting in bed awakes easily with voice, in no acute distress SKIN: Warm and dry. HEAD: Normocephalic. EYES: No scleral icterus. No injection or drainage. NECK: Supple, trachea midline. No lymphadenopathy. CARDIOVASCULAR: Regular rate and rhythm without murmurs, gallops, or rubs. RESPIRATORY: Breath sounds equal bilaterally. No accessory muscle use. GASTROINTESTINAL: Abdomen soft, non-tender, nondistended. Bowel sounds present in all quadrants. MUSCULOSKELETAL: No cyanosis, or edema. PSYCHIATRIC: Pt alert and oriented to person only. No evidence overt signs of anxiety or depression. 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 ICD Code: I60.8 Status: Acute (2) Hypertension ICD Code: I10 Status: Chronic (3) Major neurocognitive disorder due to vascular disease, without behavioral disturbance, severe ICD Code: F01.50 Status: Acute (4) Septic shock ICD Code: A41.9 Status: Resolved (5) Hydrocephalus ICD Code: G91.9 Status: Acute (6) Intracranial hemorrhage ICD Code: I62.9 Status: Acute (7) Major neurocognitive disorder as late effect of traumatic brain injury with behavioral disturbance ICD Code: S06.9X9S Status: Acute (8) Encephalopathy ICD Code: G93.40 Status: Acute (9) Sepsis ICD Code: A41.9 Status: Resolved (10) Pneumonia ICD Code: J18.9 Status: Acute (11) Protein-calorie malnutrition, mild ICD Code: E44.1 Status: Acute (12) Acute respiratory failure with hypoxia and hypercarbia ICD Code: J96.01 Status: Acute Assessment and Plan Mr. Nunez is a 51 year old male who was brought to the hospital as a trauma alert due to head injury after he fell in the bathroom and hit his head. Patient was unresponsive for approximately 15 minutes by the time ambulance services arrived. His mentation waxed and waned with GCS ranging from [address] head indicated subarachnoid hemorrhage, acute. 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 recheck level in AM - Neurology signed off. Neuropsychology following patient ultimately for discharge placement and assistance with recommendations. Per neuropsych note, ongoing areas of concern include behavioral impulsivity, lack of insight and judgement. - Speech therapy recommends regular diet with thin liquids, Patient is eating well. PEG dc'd 01/08/17. - Cont PT/OT. - Continue Seroquel 100mg BID per psychiatry LLQ and suprapubic abdominal pain, resolved. - Denies any abdominal pain today. - UA negative, KUB unremarkable and CBC unremarkable. Acute hypoxic hypercarbic respiratory failure, resolved - Tracheostomy 10/23/16, removed, old trach site healed. - Follow respiratory status Cerebral salt wasting- stable - Follow sodium levels, labs stable - Florinef to 0.2 mg PO q48hrs. -labs stable, d/c Florinef (01/25/17). -Na on 01/29/17 144, 02/03/17 144 C. difficile colitis, resolved -Completed Flagyl on 10/23 -Follow for diarrhea, denies any at this time. -Cont Lactinex Hypokalemia, resolved: Continue scheduled KCL 50 meq PO BID. Follow and replace as needed. Auditory Hallucinations: Psychiatry consulted, appreciated assistance DVT prophylaxis: SCDs, YOUSIF han, Lovenox. Ambulation. GI prophylaxis: Protonix. Discussed with Pt, RN, and Dr. Robbins Discharge Planning Discharge planning ongoing. CM continues to address Pt's safety is also in question due to his cognitive status. Neuropsychological testing results in EMR. Insight and awareness are greatly impaired. Problem Qualifiers (1) Hypertension: Qualified Code: I10 - Essential hypertension Vane Celestin Feb 05, 2017 12:13
[2017-02-05 15:24] VITALS: BP 127/88; PULSE 99; RESP 17; TEMP 98.1; O2SAT 96
[2017-02-05 20:03] VITALS: BP 154/83; PULSE 93; RESP 20; TEMP 97.8; O2SAT 96
[2017-02-05] MEDS: ENOXAPARIN SODIUM 40 MG/0.4 ML SYRINGE SQ SCH (21:02)
[2017-02-06 00:26] VITALS: BP 118/73; PULSE 84; RESP 21; TEMP 97.8; O2SAT 93
[2017-02-06] MEDS: CHLORHEXIDINE GLUCONATE 2 % 1 PACK (2 CLOTHS) TOP SCH (03:10)
[2017-02-06] MEDS: LABETALOL HCL 100 MG TAB PO SCH ×3 (03:41→21:23)
[2017-02-06 04:38] VITALS: BP 107/63; PULSE 79; RESP 20; TEMP 97.9; O2SAT 92
[2017-02-06 08:10] VITALS: BP 118/75; PULSE 92; RESP 20; TEMP 98.1; O2SAT 95
[2017-02-06] MEDS: ARTIFICIAL TEARS OPTH SOLN 15 ML BTL EACH EYE SCH ×3 (09:00→18:00)
[2017-02-06] MEDS: NYSTATIN 100,000 U/GM PWD 15 GM BTL TOPICAL SCH ×3 (09:00→18:00)
[2017-02-06 09:05] LABS: HEMOGLOBIN 13.6 GM/DL (13.0-17.0); MEAN CELL VOLUME 86.5 FL (80.0-100.0); MEAN CORPUSCULAR HEMOGLOBIN 29.3 PG (27.0-34.0); MEAN CORPUSCULAR HGB CONC 33.9 % (32.0-36.0); MEAN PLATELET VOLUME 9.3 FL (7.0-11.0); PLATELET COUNT 204 TH/MM3 (150-450); RED BLOOD COUNT 4.62 MIL/MM3 (4.50-5.90); RED CELL DISTRIBUTION WIDTH 14.4 % (11.6-17.2); WHITE BLOOD COUNT 5.6 TH/MM3 (4.0-11.0)
[2017-02-06] MEDS: POTASSIUM CHLORIDE 25 MEQ EFFERVESCENT TAB NG SCH ×2 (09:13→21:23)
[2017-02-06] MEDS: LACTOBACILLUS ACIDOPHILUS TAB PO SCH ×2 (09:13→21:23)
[2017-02-06] MEDS: PANTOPRAZOLE SOD 40 MG DELAYED RELEASE TAB PO SCH (09:13)
[2017-02-06] MEDS: PRAVASTATIN SOD 40 MG TAB PO SCH (09:13)
[2017-02-06] MEDS: QUEtiapine FUMARATE 100 MG TAB PO SCH ×2 (09:14→12:47)
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
[2017-02-06 11:41] VITALS: BP 114/71; PULSE 79; RESP 17; TEMP 97.2; O2SAT 93
[2017-02-06 20:00] VITALS: BP 131/76; PULSE 99; RESP 18; TEMP 98.3; O2SAT 95
[2017-02-06] MEDS: ENOXAPARIN SODIUM 40 MG/0.4 ML SYRINGE SQ SCH (21:23)
[2017-02-07] VITALS: BP 148/92; PULSE 92; RESP 18; TEMP 97.4; O2SAT 93
[2017-02-07 04:00] VITALS: BP 111/66; PULSE 85; RESP 20; TEMP 98; O2SAT 92
[2017-02-07] MEDS: CHLORHEXIDINE GLUCONATE 2 % 1 PACK (2 CLOTHS) TOP SCH (04:00)
[2017-02-07] MEDS: LABETALOL HCL 100 MG TAB PO SCH ×3 (04:43→20:52)
[2017-02-07 08:00] VITALS: BP 131/90; PULSE 89; RESP 17; TEMP 97.1; O2SAT 93
--- NOTE | 2017-02-07 08:55 | HHI.PR ---
Subjective Remarks Follow-up visit intracranial hemorrhage, basilar tip aneurysm, Status post TRAY CASTING MACHINE OPERATOR shunt. Patient seen and examined today. Patient states he is doing well. Denies any complaints. Denies pain and discomfort. Denies SOB/ dyspnea. Denies chest pain, palpitations, headaches, dizziness. Denies fevers, chills, n/ v/d. Denies dysuria. Objective Vitals Vital Signs Date Time Temp Pulse Resp B/P Pulse Ox O2 Delivery O2 Flow Rate FiO2 02/07/17 04:00 98.0 85 20 111/66 92 02/07/17 00:00 97.4 92 18 148/92 93 02/06/17 20:00 98.3 99 18 131/76 95 02/06/17 11:41 97.2 79 17 114/71 93 I/O 02/06/17 02/06/17 02/06/17 02/07/17 02/07/17 02/07/17 07:00 15:00 23:00 07:00 15:00 23:00 Intake Total 720 ml 1200 ml 240 ml Balance 720 ml 1200 ml 240 ml Intake Oral 720 ml 1200 ml 240 ml # Voids 4 5 3 3 # Bowel Movements 1 Result Diagram: 02/06/17 0820 02/03/17 1116 Imaging Last Impressions Abdomen X-Ray 01/20/17 0000 Signed Impressions: Service Date/Time: Friday, January 20, 2017 10:46 - CONCLUSION: No acute abnormality is identified. Tim Montgomery MD Head CT 12/09/16 0000 Signed Impressions: Service Date/Time: Friday, December 09, 2016 17:36 - CONCLUSION: 1. Right ventriculostomy tube remains in place with decrease in ventricular size since November 24. There is some encephalomalacia around the shunt and a probable small infarct in the left basal ganglia. No new hemorrhage or shift. Tip Harris MD Chest X-Ray 11/01/16 0600 Signed Impressions: Service Date/Time: Tuesday, November 01, 2016 04:37 - CONCLUSION: 1. No acute cardiopulmonary disease. Trevin De León MD Transcranial Doppler Study Complete 10/26/16 0700 Signed Impressions: Service Date/Time: Wednesday, October 26, 2016 08:20 - CONCLUSION: Minimal interval improvement with no evidence for vasospasm. Christian Song MD FACR Neck CTA 4/19/17 0000 Signed Impressions: Service Date/Time: Wednesday, October 19, 2016 14:19 - CONCLUSION: Negative for dissection or significant stenosis. Christian Song MD FACR Head CTA 10/19/16 0000 Signed Impressions: Service Date/Time: Wednesday, October 19, 2016 14:19 - CONCLUSION: 1. Interval development of significant vasospasm in the left MCA and RSI territories. 2. Mild vasospasm in the basilar artery.. Gume Mckeon MD Cerebral Arteriogram 10/19/16 0000 Signed Impressions: Service Date/Time: Wednesday, October 19, 2016 16:06 - CONCLUSION: 1. Vasospasm in the left MCA and SRI territories 2. Spasmolytic infusion, left internal carotid artery as above.. 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 Gume Mckeon MD Pelvis X-Ray 10/05/16109 Signed Impressions: Service Date/Time: Wednesday, October 05, 2016 01:22 - CONCLUSION: Unremarkable examination of the pelvis. Ruben Acuña Jr., MD Chest CT 10/05/16109 Signed Impressions: Service Date/Time: Wednesday, October 05, 2016 01:46 - CONCLUSION: 1. No acute intrathoracic abnormality. 2. Bibasilar atelectasis. 3. Cardiomegaly. 4. Prior granulomatous disease. Ruben Acuña Jr., MD Cervical Spine CT 10/05/16109 Signed Impressions: Service Date/Time: Wednesday, October 05, 2016 01:40 - CONCLUSION: 1. No fracture or dislocation. 2. Multilevel degenerative changes. Ruben Acuña Jr., MD Abdomen/Pelvis CT 10/05/16109 Signed Impressions: Service Date/Time: Wednesday, October 05, 2016 01:46 - CONCLUSION: 1. No acute trauma. 2. Rounded area of decreased density involving the pancreatic head. I cannot completely exclude pancreatic head mass. At some point MRI of the pancreas is suggested to further evaluate. 3. Focal area of poor enhancement involving the left kidney. This may relate to an area of parenchymal scarring. I cannot completely exclude a mass. This can be further assessed with MRI as well. Ruben Acuña Jr., MD Objective Remarks GENERAL: This is a well-nourished, well-developed patient, in no apparent distress. SKIN: Warm and dry. HEENT: Normocephalic. Pupils equal round and reactive. Nose without bleeding. Airway patent. NECK: Trachea midline. No JVD. Supple. CARDIOVASCULAR: Regular rate and rhythm without murmurs, gallops, or rubs. RESPIRATORY: Clear to auscultation. Breath sounds equal bilaterally. No wheezes , rales, or rhonchi. GASTROINTESTINAL: Abdomen soft, non-tender, nondistended. Bowel Sounds normoactive x4.. MUSCULOSKELETAL: Extremities without clubbing, cyanosis, or edema. NEUROLOGICAL: Awake and alert. Oriented to person, periods of confusion. Moves all extremities. Normal speech. 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 ICD Code: I60.8 Status: Acute (2) Hypertension ICD Code: I10 Status: Chronic (3) Major neurocognitive disorder due to vascular disease, without behavioral disturbance, severe ICD Code: F01.50 Status: Acute (4) Septic shock ICD Code: A41.9 Status: Resolved (5) Hydrocephalus ICD Code: G91.9 Status: Acute (6) Intracranial hemorrhage ICD Code: I62.9 Status: Acute (7) Major neurocognitive disorder as late effect of traumatic brain injury with behavioral disturbance ICD Code: S06.9X9S Status: Acute (8) Encephalopathy ICD Code: G93.40 Status: Acute (9) Sepsis ICD Code: A41.9 Status: Resolved (10) Pneumonia ICD Code: J18.9 Status: Acute (11) Protein-calorie malnutrition, mild ICD Code: E44.1 Status: Acute (12) Acute respiratory failure with hypoxia and hypercarbia ICD Code: J96.01 Status: Acute Assessment and Plan Mr. Nunez is a 51 year old male who was brought to the hospital as a trauma alert due to head injury after he fell in the bathroom and hit his head. Patient was unresponsive for approximately 15 minutes by the time ambulance services arrived. His mentation waxed and waned with GCS ranging from [address] head indicated subarachnoid hemorrhage, acute. Auditory hallucinations: psychiatry consulted, appreciate recommendations and assistance Intracranial hemorrhage, status post basilar artery coiling 10/05, Status post TRAY CASTING MACHINE OPERATOR shunt on 11/24/2016 Chronic encephalopathy Hydrocephalus Cortical blindness - Neurology signed off. Neuropsychology following patient ultimately for discharge placement and assistance with recommendations. Per neuropsych note, ongoing areas of concern include behavioral impulsivity, lack of insight and judgement. - Speech therapy recommends regular diet with thin liquids, Patient is eating well. PEG dc'd 01/08/17. - Cont PT/OT. - Continue Seroquel 100mg BID per psychiatry - Improving behaviors. LLQ and suprapubic abdominal pain, resolved. - Denies any abdominal pain today. - UA negative, KUB unremarkable and CBC unremarkable. Acute hypoxic hypercarbic respiratory failure, resolved - Tracheostomy 10/23/16, removed, old trach site healed. - Follow respiratory status C. difficile colitis, resolved - Completed Flagyl on 10/23 -Decreased Lactinex to daily Hypokalemia, resolved: Continue scheduled KCL 50 meq PO BID. Follow and replace as needed. Auditory Hallucinations: Psychiatry consulted, appreciated assistance. DVT prophylaxis: SCDs, YOUSIF hose, Lovenox. Ambulation. GI prophylaxis: Protonix. Discussed with Pt, RN, and Dr. Robbins Discharge Planning Discharge planning ongoing. CM continues to address funding and placement issue. Pt's safety is also in question due to his cognitive status. Neuropsychological testing results in EMR. Insight and awareness are greatly impaired. Problem Qualifiers (1) Hypertension: Qualified Code: I10 - Essential hypertension Tenzin Bronson Feb 07, 2017 08:55
[2017-02-07] MEDS: amLODIPine BESYLATE 5 MG TAB PO SCH ×2 (09:00→09:18)
[2017-02-07] MEDS: NYSTATIN 100,000 U/GM PWD 15 GM BTL TOPICAL SCH ×3 (09:00→16:07)
[2017-02-07] MEDS: ARTIFICIAL TEARS OPTH SOLN 15 ML BTL EACH EYE SCH ×3 (09:00→16:07)
[2017-02-07] MEDS: LACTOBACILLUS ACIDOPHILUS TAB PO SCH (09:17)
[2017-02-07] MEDS: PANTOPRAZOLE SOD 40 MG DELAYED RELEASE TAB PO SCH (09:17)
[2017-02-07] MEDS: PRAVASTATIN SOD 40 MG TAB PO SCH (09:17)
[2017-02-07] MEDS: QUEtiapine FUMARATE 100 MG TAB PO SCH ×2 (09:17→11:48)
[2017-02-07] MEDS: POTASSIUM CHLORIDE 25 MEQ EFFERVESCENT TAB NG SCH ×2 (09:18→20:52)
[2017-02-07 12:00] VITALS: BP 126/81; PULSE 95; RESP 17; TEMP 98.3; O2SAT 95
[2017-02-07 16:00] VITALS: BP 107/61; PULSE 91; RESP 17; TEMP 97.7; O2SAT 93
[2017-02-07 20:00] VITALS: BP 120/71; PULSE 95; RESP 18; TEMP 98.2; O2SAT 92
[2017-02-07] MEDS: ENOXAPARIN SODIUM 40 MG/0.4 ML SYRINGE SQ SCH (20:52)
[2017-02-07] MEDS: diphenhydrAMINE HCL 50 MG CAP PO PRN (20:52)
[2017-02-08 00:45] VITALS: BP 114/68; PULSE 74; RESP 20; TEMP 98.1; O2SAT 94
[2017-02-08] MEDS: LABETALOL HCL 100 MG TAB PO SCH ×3 (04:00→21:11)
[2017-02-08] MEDS: CHLORHEXIDINE GLUCONATE 2 % 1 PACK (2 CLOTHS) TOP SCH (04:00)
[2017-02-08 08:09] VITALS: BP 146/68; PULSE 86; RESP 20; TEMP 98.3; O2SAT 98
[2017-02-08] MEDS: PANTOPRAZOLE SOD 40 MG DELAYED RELEASE TAB PO SCH (08:26)
[2017-02-08] MEDS: PRAVASTATIN SOD 40 MG TAB PO SCH (08:26)
[2017-02-08] MEDS: LACTOBACILLUS ACIDOPHILUS TAB PO SCH (08:27)
[2017-02-08] MEDS: POTASSIUM CHLORIDE 25 MEQ EFFERVESCENT TAB NG SCH ×2 (08:27→21:00)
[2017-02-08] MEDS: amLODIPine BESYLATE 5 MG TAB PO SCH (08:27)
[2017-02-08] MEDS: ARTIFICIAL TEARS OPTH SOLN 15 ML BTL EACH EYE SCH ×3 (08:27→17:49)
[2017-02-08] MEDS: NYSTATIN 100,000 U/GM PWD 15 GM BTL TOPICAL SCH ×3 (08:27→17:49)
[2017-02-08] MEDS: QUEtiapine FUMARATE 100 MG TAB PO SCH ×2 (08:27→12:21)
--- NOTE | 2017-02-08 11:40 | HHI.PR ---
Subjective Remarks Follow-up visit intracranial hemorrhage, basilar tip aneurysm, Status post BAG MACHINE HELPER shunt. Patient seen and examined today. Reports he is okay. Denies any denies any complaints. As per nursing, no acute issues overnight, continues to be confused from post times on and off. Objective Vitals Vital Signs Date Time Temp Pulse Resp B/P Pulse Ox O2 Delivery O2 Flow Rate FiO2 02/08/17 08:09 98.3 86 20 146/68 98 02/08/17 00:45 98.1 74 20 114/68 94 02/07/17 20:00 98.2 95 18 120/71 92 02/07/17 16:00 97.7 91 17 107/61 93 02/07/17 12:00 98.3 95 17 126/81 95 I/O 02/07/17 02/07/17 02/07/17 02/08/17 02/08/17 02/08/17 07:00 15:00 23:00 07:00 15:00 23:00 Intake Total 960 ml Balance 960 ml Intake Oral 960 ml # Voids 3 3 2 1 # Bowel Movements 0 0 0 Result Diagram: 02/06/17 0820 Imaging Last Impressions Abdomen X-Ray 01/20/17 0000 Signed Impressions: Service Date/Time: Friday, January 20, 2017 10:46 - CONCLUSION: No acute abnormality is identified. Tim Montgomery MD Head CT 12/09/16 0000 Signed Impressions: Service Date/Time: Friday, December 09, 2016 17:36 - CONCLUSION: 1. Right ventriculostomy tube remains in place with decrease in ventricular size since November 24. There is some encephalomalacia around the shunt and a probable small infarct in the left basal ganglia. No new hemorrhage or shift. Tip Harris MD Chest X-Ray 11/01/16 0600 Signed Impressions: Service Date/Time: Tuesday, November 01, 2016 04:37 - CONCLUSION: 1. No acute cardiopulmonary disease. Trevin De León MD Transcranial Doppler Study Complete 10/26/16 0700 Signed Impressions: Service Date/Time: Wednesday, October 26, 2016 08:20 - CONCLUSION: Minimal interval improvement with no evidence for vasospasm. Christian Song MD FACR Neck CTA 10/19/16 0000 Signed Impressions: Service Date/Time: Wednesday, October 19, 2016 14:19 - CONCLUSION: Negative for dissection or significant stenosis. Christian Song MD FACR Head CTA 10/19/16 0000 Signed Impressions: Service Date/Time: Wednesday, October 19, 2016 14:19 - CONCLUSION: 1. Interval development of significant vasospasm in the left MCA and SRI territories. 2. Mild vasospasm in the basilar artery.. Gume Mckeon MD Cerebral Arteriogram 10/19/16 0000 Signed Impressions: Service Date/Time: Wednesday, October 19, 2016 16:06 - CONCLUSION: 1. Vasospasm in the left MCA and SRI territories 2. Spasmolytic infusion, left internal carotid artery as above.. 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 Gume Mckeon MD Pelvis X-Ray 10/05/16109 Signed Impressions: Service Date/Time: Wednesday, October 05, 2016 01:22 - CONCLUSION: Unremarkable examination of the pelvis. Ruben Acuña Jr., MD Chest CT 10/05/16109 Signed Impressions: Service Date/Time: Wednesday, October 05, 2016 01:46 - CONCLUSION: 1. No acute intrathoracic abnormality. 2. Bibasilar atelectasis. 3. Cardiomegaly. 4. Prior granulomatous disease. Ruben Acuña Jr., MD Cervical Spine CT 10/05/16109 Signed Impressions: Service Date/Time: Wednesday, October 05, 2016 01:40 - CONCLUSION: 1. No fracture or dislocation. 2. Multilevel degenerative changes. Ruben Acuña Jr., MD Abdomen/Pelvis CT 10/05/16109 Signed Impressions: Service Date/Time: Wednesday, October 05, 2016 01:46 - CONCLUSION: 1. No acute trauma. 2. Rounded area of decreased density involving the pancreatic head. I cannot completely exclude pancreatic head mass. At some point MRI of the pancreas is suggested to further evaluate. 3. Focal area of poor enhancement involving the left kidney. This may relate to an area of parenchymal scarring. I cannot completely exclude a mass. This can be further assessed with MRI as well. Ruben Acuña Jr., MD Objective Remarks GENERAL: This is a well-nourished, well-developed patient, in no apparent distress. SKIN: Warm and dry. HEENT: Normocephalic. Pupils equal round and reactive. Nose without bleeding. Airway patent. NECK: Trachea midline. No JVD. Supple. CARDIOVASCULAR: Regular rate and rhythm without murmurs, gallops, or rubs. RESPIRATORY: Clear to auscultation. Breath sounds equal bilaterally. No wheezes , rales, or rhonchi. GASTROINTESTINAL: Abdomen soft, non-tender, nondistended. Bowel Sounds normoactive x4.. MUSCULOSKELETAL: Extremities without clubbing, cyanosis, or edema. NEUROLOGICAL: Awake and alert. Oriented to person, periods of confusion. Moves all extremities. Normal speech. 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 ICD Code: I60.8 Status: Acute (2) Hypertension ICD Code: I10 Status: Chronic (3) Major neurocognitive disorder due to vascular disease, without behavioral disturbance, severe ICD Code: F01.50 Status: Acute (4) Septic shock ICD Code: A41.9 Status: Resolved (5) Hydrocephalus ICD Code: G91.9 Status: Acute (6) Intracranial hemorrhage ICD Code: I62.9 Status: Acute (7) Major neurocognitive disorder as late effect of traumatic brain injury with behavioral disturbance ICD Code: S06.9X9S Status: Acute (8) Encephalopathy ICD Code: G93.40 Status: Acute (9) Sepsis ICD Code: A41.9 Status: Resolved (10) Pneumonia ICD Code: J18.9 Status: Acute (11) Protein-calorie malnutrition, mild ICD Code: E44.1 Status: Acute (12) Acute respiratory failure with hypoxia and hypercarbia ICD Code: J96.01 Status: Acute Assessment and Plan Mr. Nunez is a 51 year old male who was brought to the hospital as a trauma alert due to head injury after he fell in the bathroom and hit his head. Patient was unresponsive for approximately 15 minutes by the time ambulance services arrived. His mentation waxed and waned with GCS ranging from [address] head indicated subarachnoid hemorrhage, acute. Auditory hallucinations: psychiatry consulted, appreciate recommendations and assistance Intracranial hemorrhage, status post basilar artery coiling 10/05, Status post BAG MACHINE HELPER shunt on 11/24/2016 Chronic encephalopathy Hydrocephalus Cortical blindness - Neurology signed off. Neuropsychology following patient ultimately for discharge placement and assistance with recommendations. Per neuropsych note, ongoing areas of concern include behavioral impulsivity, lack of insight and judgement. - Speech therapy recommends regular diet with thin liquids, Patient is eating well. PEG dc'd 01/08/17. - Cont PT/OT. - Continue Seroquel 100mg BID per psychiatry - Improving behaviors. LLQ and suprapubic abdominal pain, resolved. - Denies any abdominal pain today. - UA negative, KUB unremarkable and CBC unremarkable. Acute hypoxic hypercarbic respiratory failure, resolved - Tracheostomy 10/23/16, removed, old trach site healed. - Monitor respiratory status C. difficile colitis, resolved - Completed Flagyl on 10/23 - Decreased Lactinex to daily - No diarrhea reported Hypokalemia, resolved: Continue scheduled KCL 50 meq PO BID. Follow and replace as needed. - Recheck BMP tomorrow Auditory Hallucinations: Psychiatry consulted, appreciated assistance. DVT prophylaxis: SCDs, YOUSIF hose, Lovenox. Ambulation. GI prophylaxis: Protonix. Discussed with Pt, RN, and Dr. Cortes Discharge Planning Discharge planning ongoing. CM continues to address funding and placement issue. Pt's safety is also in question due to his cognitive status. Neuropsychological testing results in EMR. Insight and awareness are greatly impaired. Problem Qualifiers (1) Hypertension: Qualified Code: I10 - Essential hypertension Tenzin Bronson Feb 08, 2017 11:40
[2017-02-08 12:19] VITALS: BP 133/78; PULSE 72; RESP 20; TEMP 98.3; O2SAT 95
[2017-02-08 20:24] VITALS: BP 114/67; PULSE 85; RESP 16; TEMP 97.6; O2SAT 94
[2017-02-08] MEDS: ENOXAPARIN SODIUM 40 MG/0.4 ML SYRINGE SQ SCH (21:11)
[2017-02-08] MEDS: diphenhydrAMINE HCL 50 MG CAP PO PRN (21:11)
[2017-02-09] VITALS: BP 124/76; PULSE 81; RESP 20; TEMP 98.1; O2SAT 94
[2017-02-09 03:30] VITALS: BP 131/85; PULSE 77; RESP 18; TEMP 98.1; O2SAT 96
[2017-02-09] MEDS: CHLORHEXIDINE GLUCONATE 2 % 1 PACK (2 CLOTHS) TOP SCH (03:32)
[2017-02-09] MEDS: LABETALOL HCL 100 MG TAB PO SCH ×3 (03:32→21:05)
[2017-02-09 08:25] VITALS: BP 122/85; PULSE 82; RESP 20; TEMP 98.3; O2SAT 97
[2017-02-09] MEDS: NYSTATIN 100,000 U/GM PWD 15 GM BTL TOPICAL SCH ×3 (09:00→16:48)
[2017-02-09] MEDS: ARTIFICIAL TEARS OPTH SOLN 15 ML BTL EACH EYE SCH ×3 (09:00→16:48)
[2017-02-09] MEDS: QUEtiapine FUMARATE 100 MG TAB PO SCH ×2 (09:55→13:34)
[2017-02-09] MEDS: PRAVASTATIN SOD 40 MG TAB PO SCH (09:55)
[2017-02-09] MEDS: PANTOPRAZOLE SOD 40 MG DELAYED RELEASE TAB PO SCH (09:55)
[2017-02-09] MEDS: amLODIPine BESYLATE 5 MG TAB PO SCH (09:55)
[2017-02-09] MEDS: LACTOBACILLUS ACIDOPHILUS TAB PO SCH (09:55)
[2017-02-09] MEDS: POTASSIUM CHLORIDE 25 MEQ EFFERVESCENT TAB NG SCH ×2 (09:56→21:05)
[2017-02-09 12:06] VITALS: BP 123/73; PULSE 88; RESP 22; TEMP 98.2; O2SAT 97
--- NOTE | 2017-02-09 12:10 | HHI.PR ---
Subjective Remarks Follow-up visit intracranial hemorrhage, basilar tip aneurysm, Status post SUPERVISOR TELEPHONE INFORMATION shunt. Patient is seen laying in bed today. States he wanted to go to sleep and is now sleeping on and off. Denies pain and discomfort. Denies SOB/ dyspnea. Denies chest pain. Denies fevers, chills, n/v/d. As per nursing, no acute issues overnight. Objective Vitals Vital Signs Date Time Temp Pulse Resp B/P Pulse Ox O2 Delivery O2 Flow Rate FiO2 02/09/17 08:25 98.3 82 20 122/85 97 02/09/17 03:30 98.1 77 18 131/85 96 02/09/17 00:00 98.1 81 20 124/76 94 02/08/17 20:24 97.6 85 16 114/67 94 02/08/17 12:19 98.3 72 20 133/78 95 I/O 02/08/17 02/08/17 02/08/17 02/09/17 02/09/17 02/09/17 06:59 14:59 22:59 06:59 14:59 22:59 Intake Total 1440 ml Balance 1440 ml Intake Oral 1440 ml # Voids 1 4 2 # Bowel Movements 0 1 0 Result Diagram: 02/06/17 0820 Imaging Last Impressions Abdomen X-Ray 01/20/17 0000 Signed Impressions: Service Date/Time: Friday, January 20, 2017 10:46 - CONCLUSION: No acute abnormality is identified. Tim Montgomery MD Head CT 12/09/16 0000 Signed Impressions: Service Date/Time: Friday, December 09, 2016 17:36 - CONCLUSION: 1. Right ventriculostomy tube remains in place with decrease in ventricular size since November 24. There is some encephalomalacia around the shunt and a probable small infarct in the left basal ganglia. No new hemorrhage or shift. Tip Harris MD Chest X-Ray 11/01/16 0600 Signed Impressions: Service Date/Time: Tuesday, November 01, 2016 04:37 - CONCLUSION: 1. No acute cardiopulmonary disease. Trevin De León MD Transcranial Doppler Study Complete 10/26/16 0700 Signed Impressions: Service Date/Time: Wednesday, October 26, 2016 08:20 - CONCLUSION: Minimal interval improvement with no evidence for vasospasm. Christian Song MD FACR Neck CTA 10/19/16 0000 Signed Impressions: Service Date/Time: Wednesday, October 19, 2016 14:19 - CONCLUSION: Negative for dissection or significant stenosis. Christian Song MD FACR Head CTA 10/19/16 0000 Signed Impressions: Service Date/Time: Wednesday, October 19, 2016 14:19 - CONCLUSION: 1. Interval development of significant vasospasm in the left MCA and SRI territories. 2. Mild vasospasm in the basilar artery.. Gume Mckeon MD Cerebral Arteriogram 10/19/16 0000 Signed Impressions: Service Date/Time: Wednesday, October 19, 2016 16:06 - CONCLUSION: 1. Vasospasm in the left MCA and SRI territories 2. Spasmolytic infusion, left internal carotid artery as above.. 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 Gume Mckeon MD Pelvis X-Ray 10/05/16109 Signed Impressions: Service Date/Time: Wednesday, October 05, 2016 01:22 - CONCLUSION: Unremarkable examination of the pelvis. Ruben Acuña Jr., MD Chest CT 10/05/16109 Signed Impressions: Service Date/Time: Wednesday, October 05, 2016 01:46 - CONCLUSION: 1. No acute intrathoracic abnormality. 2. Bibasilar atelectasis. 3. Cardiomegaly. 4. Prior granulomatous disease. Ruben Acuña Jr., MD Cervical Spine CT 10/05/16109 Signed Impressions: Service Date/Time: Wednesday, October 05, 2016 01:40 - CONCLUSION: 1. No fracture or dislocation. 2. Multilevel degenerative changes. Ruben Acuña Jr., MD Abdomen/Pelvis CT 10/05/16109 Signed Impressions: Service Date/Time: Wednesday, October 05, 2016 01:46 - CONCLUSION: 1. No acute trauma. 2. Rounded area of decreased density involving the pancreatic head. I cannot completely exclude pancreatic head mass. At some point MRI of the pancreas is suggested to further evaluate. 3. Focal area of poor enhancement involving the left kidney. This may relate to an area of parenchymal scarring. I cannot completely exclude a mass. This can be further assessed with MRI as well. Ruben Acuña Jr., MD Objective Remarks GENERAL: This is a well-nourished, well-developed patient, in no apparent distress. SKIN: Warm and dry. HEENT: Normocephalic. Pupils equal round and reactive. Nose without bleeding. Airway patent. NECK: Trachea midline. No JVD. Supple. CARDIOVASCULAR: Regular rate and rhythm without murmurs, gallops, or rubs. RESPIRATORY: Clear to auscultation. Breath sounds equal bilaterally. No wheezes , rales, or rhonchi. GASTROINTESTINAL: Abdomen soft, non-tender, nondistended. Bowel Sounds normoactive x4.. MUSCULOSKELETAL: Extremities without clubbing, cyanosis, or edema. NEUROLOGICAL: Awake and alert. Oriented to person, periods of confusion. Moves all extremities. Normal speech. 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 ICD Code: I60.8 Status: Acute (2) Hypertension ICD Code: I10 Status: Chronic (3) Major neurocognitive disorder due to vascular disease, without behavioral disturbance, severe ICD Code: F01.50 Status: Acute (4) Septic shock ICD Code: A41.9 Status: Resolved (5) Hydrocephalus ICD Code: G91.9 Status: Acute (6) Intracranial hemorrhage ICD Code: I62.9 Status: Acute (7) Major neurocognitive disorder as late effect of traumatic brain injury with behavioral disturbance ICD Code: S06.9X9S Status: Acute (8) Encephalopathy ICD Code: G93.40 Status: Acute (9) Sepsis ICD Code: A41.9 Status: Resolved (10) Pneumonia ICD Code: J18.9 Status: Acute (11) Protein-calorie malnutrition, mild ICD Code: E44.1 Status: Acute (12) Acute respiratory failure with hypoxia and hypercarbia ICD Code: J96.01 Status: Acute Assessment and Plan Mr. Nunez is a 51 year old male who was brought to the hospital as a trauma alert due to head injury after he fell in the bathroom and hit his head. Patient was unresponsive for approximately 15 minutes by the time ambulance services arrived. His mentation waxed and waned with GCS ranging from [address] head indicated subarachnoid hemorrhage, acute. Auditory hallucinations: psychiatry consulted, appreciate recommendations and assistance Intracranial hemorrhage, status post basilar artery coiling 10/05, Status post SUPERVISOR TELEPHONE INFORMATION shunt on 11/24/2016 Chronic encephalopathy Hydrocephalus Cortical blindness - Neurology signed off. Neuropsychology following patient ultimately for discharge placement and assistance with recommendations. Per neuropsych note, ongoing areas of concern include behavioral impulsivity, lack of insight and judgement. - Speech therapy recommends regular diet with thin liquids, Patient is eating well. PEG dc'd 01/08/17. - Cont PT/OT. - Continue Seroquel 100mg BID per psychiatry - Improving behaviors. LLQ and suprapubic abdominal pain, resolved. - Denies any abdominal pain today. - UA negative, KUB unremarkable and CBC unremarkable. Acute hypoxic hypercarbic respiratory failure, resolved - Tracheostomy 10/23/16, removed, old trach site healed. - Monitor respiratory status C. difficile colitis, resolved - Completed Flagyl on 10/23 - Decreased Lactinex to daily - No diarrhea reported Hypokalemia, resolved: Continue scheduled KCL 50 meq PO BID. Follow and replace as needed. - Pending results Auditory Hallucinations: Psychiatry consulted, appreciated assistance. DVT prophylaxis: SCDs, YOUSIF hose, Lovenox. Ambulation. GI prophylaxis: Protonix. Discussed with Pt, RN, and Dr. Cortes Discharge Planning Discharge planning ongoing. CM continues to address funding and placement issue. Pending SSI. Pt's safety is also in question due to his cognitive status. Neuropsychological testing results in EMR. Insight and awareness are greatly impaired. Problem Qualifiers (1) Hypertension: Qualified Code: I10 - Essential hypertension Tenzin Bronson [facility] Feb 09, 2017 12:10
[2017-02-09 13:36] LABS: BICARBONATE 26.4 MEQ/L (21.0-32.0); CREATININE 0.98 MG/DL (0.60-1.30)
[2017-02-09 15:54] VITALS: BP 119/74; PULSE 89; RESP 20; TEMP 97.8; O2SAT 94
[2017-02-09 20:00] VITALS: BP 130/87; PULSE 91; RESP 20; TEMP 98.6; O2SAT 96
[2017-02-09] MEDS: ENOXAPARIN SODIUM 40 MG/0.4 ML SYRINGE SQ SCH (21:05)
[2017-02-09] MEDS: diphenhydrAMINE HCL 50 MG CAP PO PRN (21:05)
[2017-02-10 01:44] VITALS: BP 126/82; PULSE 85; RESP 18; TEMP 98.3; O2SAT 95
[2017-02-10] MEDS: CHLORHEXIDINE GLUCONATE 2 % 1 PACK (2 CLOTHS) TOP SCH (03:39)
[2017-02-10 04:00] VITALS: BP 118/83; PULSE 74; RESP 20; TEMP 97.8; O2SAT 95
[2017-02-10] MEDS: LABETALOL HCL 100 MG TAB PO SCH ×3 (04:05→21:22)
[2017-02-10 08:08] VITALS: BP 129/89; PULSE 81; RESP 20; TEMP 97.7; O2SAT 95
[2017-02-10] MEDS: NYSTATIN 100,000 U/GM PWD 15 GM BTL TOPICAL SCH ×3 (09:00→17:18)
[2017-02-10] MEDS: ARTIFICIAL TEARS OPTH SOLN 15 ML BTL EACH EYE SCH ×3 (09:00→17:18)
[2017-02-10] MEDS: PRAVASTATIN SOD 40 MG TAB PO SCH (09:02)
[2017-02-10] MEDS: LACTOBACILLUS ACIDOPHILUS TAB PO SCH (09:02)
[2017-02-10] MEDS: PANTOPRAZOLE SOD 40 MG DELAYED RELEASE TAB PO SCH (09:02)
[2017-02-10] MEDS: QUEtiapine FUMARATE 100 MG TAB PO SCH ×2 (09:02→12:02)
[2017-02-10] MEDS: POTASSIUM CHLORIDE 25 MEQ EFFERVESCENT TAB NG SCH ×2 (09:02→21:22)
[2017-02-10] MEDS: amLODIPine BESYLATE 5 MG TAB PO SCH (09:02)
--- NOTE | 2017-02-10 09:05 | HHI.PR ---
Subjective Remarks Follow-up visit intracranial hemorrhage, basilar tip aneurysm, Status post VETERINARY LABORATORY TECHNICIAN shunt. Patient is seen sitting in the chair at the nurses station. Reports he is doing okay. Requesting to have coffee and return his snake. "I want my snake back, he is in the closet and they locked him up." Patient reoriented that we don't keep snakes the hospital. Denies pain or discomfort, shortness of breath, chest pain, dizziness, palpitations, nausea, vomiting, diarrhea. Denies fevers, chills. Objective Vitals Vital Signs Date Time Temp Pulse Resp B/P Pulse Ox O2 Delivery O2 Flow Rate FiO2 02/10/17 08:08 97.7 81 20 129/89 95 02/10/17 04:00 97.8 74 20 118/83 95 02/10/17 01:44 98.3 85 18 126/82 95 02/09/17 20:00 98.6 91 20 130/87 96 02/09/17 15:54 97.8 89 20 119/74 94 02/09/17 12:06 98.2 88 22 123/73 97 I/O 02/09/17 02/09/17 02/09/17 02/10/17 02/10/17 02/10/17 06:59 14:59 22:59 06:59 14:59 22:59 # Voids 2 3 # Bowel Movements 0 Result Diagram: 02/06/17 0820 02/09/17 1228 Imaging Last Impressions Abdomen X-Ray 01/20/17 0000 Signed Impressions: Service Date/Time: Friday, January 20, 2017 10:46 - CONCLUSION: No acute abnormality is identified. Tim Montgomery MD Head CT 12/09/16 0000 Signed Impressions: Service Date/Time: Friday, December 09, 2016 17:36 - CONCLUSION: 1. Right ventriculostomy tube remains in place with decrease in ventricular size since November 24. There is some encephalomalacia around the shunt and a probable small infarct in the left basal ganglia. No new hemorrhage or shift. Tip Harris MD Chest X-Ray 11/01/16 0600 Signed Impressions: Service Date/Time: Tuesday, November 01, 2016 04:37 - CONCLUSION: 1. No acute cardiopulmonary disease. Trevin De León MD Transcranial Doppler Study Complete 10/26/16 0700 Signed Impressions: Service Date/Time: Wednesday, October 26, 2016 08:20 - CONCLUSION: Minimal interval improvement with no evidence for vasospasm. Christian Song MD FACR Neck CTA 10/19/16 0000 Signed Impressions: Service Date/Time: Wednesday, October 19, 2016 14:19 - CONCLUSION: Negative for dissection or significant stenosis. Christian Song MD FACR Head CTA 10/19/16 0000 Signed Impressions: Service Date/Time: Wednesday, October 19, 2016 14:19 - CONCLUSION: 1. Interval development of significant vasospasm in the left MCA and SRI territories. 2. Mild vasospasm in the basilar artery.. Gume Mckeon MD Cerebral Arteriogram 10/19/16 0000 Signed Impressions: Service Date/Time: Wednesday, October 19, 2016 16:06 - CONCLUSION: 1. Vasospasm in the left MCA and SRI territories 2. Spasmolytic infusion, left internal carotid artery as above.. 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 Gume Mckeon MD Pelvis X-Ray 10/05/16109 Signed Impressions: Service Date/Time: Wednesday, October 05, 2016 01:22 - CONCLUSION: Unremarkable examination of the pelvis. Ruben Acuña Jr., MD Chest CT 10/05/16109 Signed Impressions: Service Date/Time: Wednesday, October 05, 2016 01:46 - CONCLUSION: 1. No acute intrathoracic abnormality. 2. Bibasilar atelectasis. 3. Cardiomegaly. 4. Prior granulomatous disease. Ruben Acuña Jr., MD Cervical Spine CT 10/05/16109 Signed Impressions: Service Date/Time: Wednesday, October 05, 2016 01:40 - CONCLUSION: 1. No fracture or dislocation. 2. Multilevel degenerative changes. Ruben Acuña Jr., MD Abdomen/Pelvis CT 10/05/16109 Signed Impressions: Service Date/Time: Wednesday, October 05, 2016 01:46 - CONCLUSION: 1. No acute trauma. 2. Rounded area of decreased density involving the pancreatic head. I cannot completely exclude pancreatic head mass. At some point MRI of the pancreas is suggested to further evaluate. 3. Focal area of poor enhancement involving the left kidney. This may relate to an area of parenchymal scarring. I cannot completely exclude a mass. This can be further assessed with MRI as well. Ruben Acuña Jr., MD Objective Remarks GENERAL: This is a well-nourished, well-developed patient, in no apparent distress. SKIN: Warm and dry. HEENT: Normocephalic. Pupils equal round and reactive. Nose without bleeding. Airway patent. NECK: Trachea midline. No JVD. Supple. CARDIOVASCULAR: Regular rate and rhythm without murmurs, gallops, or rubs. RESPIRATORY: Clear to auscultation. Breath sounds equal bilaterally. No wheezes , rales, or rhonchi. GASTROINTESTINAL: Abdomen soft, non-tender, nondistended. Bowel Sounds normoactive x4.. MUSCULOSKELETAL: Extremities without clubbing, cyanosis, or edema. NEUROLOGICAL: Awake and alert. Oriented to person, periods of confusion. Moves all extremities. Normal speech. 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 ICD Code: I60.8 Status: Acute (2) Hypertension ICD Code: I10 Status: Chronic (3) Major neurocognitive disorder due to vascular disease, without behavioral disturbance, severe ICD Code: F01.50 Status: Acute (4) Septic shock ICD Code: A41.9 Status: Resolved (5) Hydrocephalus ICD Code: G91.9 Status: Acute (6) Intracranial hemorrhage ICD Code: I62.9 Status: Acute (7) Major neurocognitive disorder as late effect of traumatic brain injury with behavioral disturbance ICD Code: S06.9X9S Status: Acute (8) Encephalopathy ICD Code: G93.40 Status: Acute (9) Sepsis ICD Code: A41.9 Status: Resolved (10) Pneumonia ICD Code: J18.9 Status: Acute (11) Protein-calorie malnutrition, mild ICD Code: E44.1 Status: Acute (12) Acute respiratory failure with hypoxia and hypercarbia ICD Code: J96.01 Status: Acute Assessment and Plan Mr. Nunez is a 51 year old male who was brought to the hospital as a trauma alert due to head injury after he fell in the bathroom and hit his head. Patient was unresponsive for approximately 15 minutes by the time ambulance services arrived. His mentation waxed and waned with GCS ranging from [address] head indicated subarachnoid hemorrhage, acute. Auditory hallucinations: psychiatry consulted, appreciate recommendations and assistance Intracranial hemorrhage, status post basilar artery coiling 10/05, Status post VETERINARY LABORATORY TECHNICIAN shunt on 11/24/2016 Chronic encephalopathy Hydrocephalus Cortical blindness - Neurology signed off. Neuropsychology following patient ultimately for discharge placement and assistance with recommendations. Per neuropsych note, ongoing areas of concern include behavioral impulsivity, lack of insight and judgement. - Speech therapy recommends regular diet with thin liquids, Patient is eating well. PEG dc'd 01/08/17. - Cont PT/OT. - Continue Seroquel 100mg BID per psychiatry - Continue with reorientation LLQ and suprapubic abdominal pain, resolved. - Denies any abdominal pain today. - UA negative, KUB unremarkable and CBC unremarkable. Acute hypoxic hypercarbic respiratory failure, resolved - Tracheostomy 10/23/16, removed, old trach site healed. - Monitor respiratory status C. difficile colitis, resolved - Completed Flagyl on 10/23 - Decreased Lactinex to daily - No diarrhea reported Hypokalemia, resolved: Continue scheduled KCL 50 meq PO BID. Follow and replace as needed. - K+ 3.7 Auditory Hallucinations: Psychiatry consulted, appreciated assistance. DVT prophylaxis: SCDs, YOUSIF hose, Lovenox. Ambulation. GI prophylaxis: Protonix. Discussed with Pt, RN, and Dr. Cortes Discharge Planning Discharge planning ongoing. CM continues to address funding and placement issue. Pending SSI. Pt's safety is also in question due to his cognitive status. Neuropsychological testing results in EMR. Insight and awareness are greatly impaired. Problem Qualifiers (1) Hypertension: Qualified Code: I10 - Essential hypertension Tenzin Bronson Feb 10, 2017 09:05
[2017-02-10 12:04] VITALS: BP 129/87; PULSE 77; RESP 20; TEMP 97.6; O2SAT 96
[2017-02-10 16:04] VITALS: BP 102/55; PULSE 72; RESP 20; TEMP 97.7; O2SAT 93
[2017-02-10 20:00] VITALS: BP 136/79; PULSE 53; RESP 18; TEMP 98.7; O2SAT 97
[2017-02-10] MEDS: ENOXAPARIN SODIUM 40 MG/0.4 ML SYRINGE SQ SCH (21:23)
[2017-02-11] VITALS: BP 132/76; PULSE 78; RESP 18; TEMP 98.2; O2SAT 97
[2017-02-11] MEDS: CHLORHEXIDINE GLUCONATE 2 % 1 PACK (2 CLOTHS) TOP SCH (03:31)
[2017-02-11 04:00] VITALS: BP 132/76; PULSE 78; RESP 18; TEMP 98.3; O2SAT 97
[2017-02-11] MEDS: LABETALOL HCL 100 MG TAB PO SCH ×3 (04:00→20:53)
[2017-02-11 07:44] VITALS: BP 128/83; PULSE 79; RESP 20; TEMP 97.7; O2SAT 96
[2017-02-11] MEDS: ARTIFICIAL TEARS OPTH SOLN 15 ML BTL EACH EYE SCH ×3 (09:00→18:00)
[2017-02-11] MEDS: PANTOPRAZOLE SOD 40 MG DELAYED RELEASE TAB PO SCH (09:07)
[2017-02-11] MEDS: POTASSIUM CHLORIDE 25 MEQ EFFERVESCENT TAB NG SCH ×2 (09:07→20:53)
[2017-02-11] MEDS: LACTOBACILLUS ACIDOPHILUS TAB PO SCH (09:07)
[2017-02-11] MEDS: amLODIPine BESYLATE 5 MG TAB PO SCH (09:07)
[2017-02-11] MEDS: PRAVASTATIN SOD 40 MG TAB PO SCH (09:07)
--- NOTE | 2017-02-11 09:11 | HHI.PR ---
Subjective Remarks Follow-up visit intracranial hemorrhage, basilar tip aneurysm, Status post PRODUCTION LINE OPERATOR shunt. Patient is seen sitting in the chair at the nurses station. When asked about ADLs and ambulating in the hallway patient states " yes, I am walking, around and have been walking around since 2010." Reoriented patient to place, time. Denies pain and discomfort. Denies SOB/ dyspnea. Denies chest pain, palpitations, headaches, dizziness. Denies fevers, chills, n/v/d. Denies dysuria. Objective Vitals Vital Signs Date Time Temp Pulse Resp B/P Pulse Ox O2 Delivery O2 Flow Rate FiO2 02/11/17 07:44 97.7 79 20 128/83 96 02/11/17 04:00 98.3 78 18 132/76 97 02/11/17 00:00 98.2 78 18 132/76 97 02/10/17 20:00 98.7 53 18 136/79 97 02/10/17 16:04 97.7 72 20 102/55 93 02/10/17 12:04 97.6 77 20 129/87 96 I/O 02/10/17 02/10/17 02/10/17 02/11/17 02/11/17 02/11/17 07:00 15:00 23:00 07:00 15:00 23:00 Intake Total 480 ml Balance 480 ml Intake Oral 480 ml # Voids 3 1 # Bowel Movements 1 Result Diagram: 02/09/17 1228 Imaging Last Impressions Abdomen X-Ray 01/20/17 0000 Signed Impressions: Service Date/Time: Friday, January 20, 2017 10:46 - CONCLUSION: No acute abnormality is identified. Tim Montgomery MD Head CT 12/09/16 0000 Signed Impressions: Service Date/Time: Friday, December 09, 2016 17:36 - CONCLUSION: 1. Right ventriculostomy tube remains in place with decrease in ventricular size since November 24. There is some encephalomalacia around the shunt and a probable small infarct in the left basal ganglia. No new hemorrhage or shift. Tip Harris MD Chest X-Ray 11/01/16 0600 Signed Impressions: Service Date/Time: Tuesday, November 01, 2016 04:37 - CONCLUSION: 1. No acute cardiopulmonary disease. Trevin De León MD Transcranial Doppler Study Complete 10/26/16 0700 Signed Impressions: Service Date/Time: Wednesday, October 26, 2016 08:20 - CONCLUSION: Minimal interval improvement with no evidence for vasospasm. Christian Sogn MD FACR Neck CTA 10/19/16 0000 Signed Impressions: Service Date/Time: Wednesday, October 19, 2016 14:19 - CONCLUSION: Negative for dissection or significant stenosis. Christian Song MD FACR Head CTA 10/19/16 0000 Signed Impressions: Service Date/Time: Wednesday, October 19, 2016 14:19 - CONCLUSION: 1. Interval development of significant vasospasm in the left MCA and SRI territories. 2. Mild vasospasm in the basilar artery.. Gume Mckeon MD Cerebral Arteriogram 10/19/16 0000 Signed Impressions: Service Date/Time: Wednesday, October 19, 2016 16:06 - CONCLUSION: 1. Vasospasm in the left MCA and SRI territories 2. Spasmolytic infusion, left internal carotid artery as above.. 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 Gume Mckeon MD Pelvis X-Ray 10/05/16109 Signed Impressions: Service Date/Time: Wednesday, October 05, 2016 01:22 - CONCLUSION: Unremarkable examination of the pelvis. Ruben Acuña Jr., MD Chest CT 10/05/16109 Signed Impressions: Service Date/Time: Wednesday, October 05, 2016 01:46 - CONCLUSION: 1. No acute intrathoracic abnormality. 2. Bibasilar atelectasis. 3. Cardiomegaly. 4. Prior granulomatous disease. Ruben Acuña Jr., MD Cervical Spine CT 10/05/16109 Signed Impressions: Service Date/Time: Wednesday, October 05, 2016 01:40 - CONCLUSION: 1. No fracture or dislocation. 2. Multilevel degenerative changes. Ruben Acuña Jr., MD Abdomen/Pelvis CT 10/05/16109 Signed Impressions: Service Date/Time: Wednesday, October 05, 2016 01:46 - CONCLUSION: 1. No acute trauma. 2. Rounded area of decreased density involving the pancreatic head. I cannot completely exclude pancreatic head mass. At some point MRI of the pancreas is suggested to further evaluate. 3. Focal area of poor enhancement involving the left kidney. This may relate to an area of parenchymal scarring. I cannot completely exclude a mass. This can be further assessed with MRI as well. Ruben Acuña Jr., MD Objective Remarks GENERAL: This is a well-nourished, well-developed patient, in no apparent distress. SKIN: Warm and dry. HEENT: Normocephalic. Nonicteric. No injection or drainage. Nose without bleeding. Airway patent. NECK: Trachea midline. Supple. CARDIOVASCULAR: Regular rate and rhythm without murmurs, gallops, or rubs. RESPIRATORY: Clear to auscultation. Breath sounds equal bilaterally. No wheezes , rales, or rhonchi. GASTROINTESTINAL: Abdomen soft, non-tender, nondistended. Bowel Sounds normoactive x4.. MUSCULOSKELETAL: Extremities without clubbing, cyanosis, or edema. NEUROLOGICAL: Awake and alert. Oriented to person, periods of confusion. Moves all extremities. Normal speech. 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 ICD Code: I60.8 Status: Acute (2) Hypertension ICD Code: I10 Status: Chronic (3) Major neurocognitive disorder due to vascular disease, without behavioral disturbance, severe ICD Code: F01.50 Status: Acute (4) Septic shock ICD Code: A41.9 Status: Resolved (5) Hydrocephalus ICD Code: G91.9 Status: Acute (6) Intracranial hemorrhage ICD Code: I62.9 Status: Acute (7) Major neurocognitive disorder as late effect of traumatic brain injury with behavioral disturbance ICD Code: S06.9X9S Status: Acute (8) Encephalopathy ICD Code: G93.40 Status: Acute (9) Sepsis ICD Code: A41.9 Status: Resolved (10) Pneumonia ICD Code: J18.9 Status: Acute (11) Protein-calorie malnutrition, mild ICD Code: E44.1 Status: Acute (12) Acute respiratory failure with hypoxia and hypercarbia ICD Code: J96.01 Status: Acute Assessment and Plan Mr. Nunez is a 51 year old male who was brought to the hospital as a trauma alert due to head injury after he fell in the bathroom and hit his head. Patient was unresponsive for approximately 15 minutes by the time ambulance services arrived. His mentation waxed and waned with GCS ranging from [address] head indicated subarachnoid hemorrhage, acute. Auditory hallucinations: psychiatry consulted, appreciate recommendations and assistance Intracranial hemorrhage, status post basilar artery coiling 10/05, Status post PRODUCTION LINE OPERATOR shunt on 11/24/2016 Chronic encephalopathy Hydrocephalus Cortical blindness - Neurology signed off. Neuropsychology following patient ultimately for discharge placement and assistance with recommendations. Per neuropsych note, ongoing areas of concern include behavioral impulsivity, lack of insight and judgement. - Speech therapy recommends regular diet with thin liquids, Patient is eating well. PEG dc'd 01/08/17. - Cont PT/OT. - Continue Seroquel 100mg BID per psychiatry - Continue with reorientation - Encourage daily activities LLQ and suprapubic abdominal pain, resolved. - Denies any abdominal pain today. - UA negative, KUB unremarkable and CBC unremarkable. Acute hypoxic hypercarbic respiratory failure, resolved - Tracheostomy 10/23/16, removed, old trach site healed. - Monitor respiratory status C. difficile colitis, resolved - Completed Flagyl on 10/23 - No diarrhea reported - Will DC Lactinex Hypokalemia, resolved: Continue scheduled KCL 50 meq PO BID. Follow and replace as needed. - K+ 3.7 Auditory Hallucinations: Psychiatry consulted, appreciated assistance. DVT prophylaxis: SCDs, YOUSIF hose, Lovenox. Ambulation. GI prophylaxis: Protonix. Discussed with Pt, RN, and Dr. Cortes Discharge Planning Discharge planning ongoing. CM continues to address funding and placement issue. Pending SSI. Pt's safety is also in question due to his cognitive status. Neuropsychological testing results in EMR. Insight and awareness are greatly impaired. Problem Qualifiers (1) Hypertension: Qualified Code: I10 - Essential hypertension Tenzin Bronson Feb 11, 2017 09:11
[2017-02-11] MEDS: QUEtiapine FUMARATE 100 MG TAB PO SCH ×2 (09:45→12:49)
[2017-02-11 11:41] VITALS: BP 108/72; PULSE 104; RESP 16; TEMP 98.6; O2SAT 96
[2017-02-11] MEDS: NYSTATIN 100,000 U/GM PWD 15 GM BTL TOPICAL SCH ×3 (12:49→18:00)
[2017-02-11 16:00] VITALS: BP 130/75; PULSE 88; RESP 18; TEMP 99.2; O2SAT 95
[2017-02-11 20:00] VITALS: BP 135/82; PULSE 80; RESP 18; TEMP 97.8; O2SAT 97
[2017-02-11] MEDS: ENOXAPARIN SODIUM 40 MG/0.4 ML SYRINGE SQ SCH (20:54)
[2017-02-12] VITALS: BP 116/68; PULSE 94; RESP 18; TEMP 97.8; O2SAT 92
[2017-02-12] MEDS ORDERED: DOCUSATE SODIUM 100 MG CAP PO PRN (00:15)
[2017-02-12] MEDS: CHLORHEXIDINE GLUCONATE 2 % 1 PACK (2 CLOTHS) TOP SCH (03:25)
[2017-02-12 04:00] VITALS: BP 130/73; PULSE 75; RESP 16; TEMP 97.6; O2SAT 93
[2017-02-12] MEDS: LABETALOL HCL 100 MG TAB PO SCH ×3 (04:43→23:15)
[2017-02-12 08:00] VITALS: BP 121/80; PULSE 86; RESP 18; TEMP 97.7; O2SAT 96
[2017-02-12] MEDS ORDERED: POTASSIUM CHLORIDE 25 MEQ EFFERVESCENT TAB PO SCH (09:00)
[2017-02-12] MEDS: QUEtiapine FUMARATE 100 MG TAB PO SCH ×2 (09:02→11:52)
[2017-02-12] MEDS: PANTOPRAZOLE SOD 40 MG DELAYED RELEASE TAB PO SCH (09:02)
[2017-02-12] MEDS: PRAVASTATIN SOD 40 MG TAB PO SCH (09:02)
[2017-02-12] MEDS: amLODIPine BESYLATE 5 MG TAB PO SCH (09:02)
--- NOTE | 2017-02-12 09:25 | HHI.PR ---
Subjective Remarks Follow-up visit intracranial hemorrhage, basilar tip aneurysm, Status post FRANCHISE BUSINESS CONSULTANT shunt. Patient is laying in bed. States " I'm doing okay as long as I don't need to go near the security system." As per nursing no acute issues overnight. Objective Vitals Vital Signs Date Time Temp Pulse Resp B/P Pulse Ox O2 Delivery O2 Flow Rate FiO2 02/12/17 08:00 97.7 86 18 121/80 96 02/12/17 04:00 97.6 75 16 130/73 93 02/12/17 00:00 97.8 94 18 116/68 92 02/11/17 20:00 97.8 80 18 135/82 97 02/11/17 16:00 99.2 88 18 130/75 95 02/11/17 11:41 98.6 104 16 108/72 96 I/O 02/11/17 02/11/17 02/11/17 02/12/17 02/12/17 02/12/17 07:00 15:00 23:00 07:00 15:00 23:00 Intake Total 355 ml 0 ml Balance 355 ml 0 ml Intake Oral 355 ml 0 ml # Voids 4 2 1 # Bowel Movements 1 0 1 Result Diagram: 02/09/17 1228 Imaging Last Impressions Abdomen X-Ray 01/20/17 0000 Signed Impressions: Service Date/Time: Friday, January 20, 2017 10:46 - CONCLUSION: No acute abnormality is identified. Tim Montgomery MD Head CT 12/09/16 0000 Signed Impressions: Service Date/Time: Friday, December 09, 2016 17:36 - CONCLUSION: 1. Right ventriculostomy tube remains in place with decrease in ventricular size since November 24. There is some encephalomalacia around the shunt and a probable small infarct in the left basal ganglia. No new hemorrhage or shift. Tip Harris MD Chest X-Ray 11/01/16 0600 Signed Impressions: Service Date/Time: Tuesday, November 01, 2016 04:37 - CONCLUSION: 1. No acute cardiopulmonary disease. Trevin De León MD Transcranial Doppler Study Complete 10/26/16 0700 Signed Impressions: Service Date/Time: Wednesday, October 26, 2016 08:20 - CONCLUSION: Minimal interval improvement with no evidence for vasospasm. Christian Song MD FACR Neck CTA 10/19/16 0000 Signed Impressions: Service Date/Time: Wednesday, October 19, 2016 14:19 - CONCLUSION: Negative for dissection or significant stenosis. Christian Song MD FACR Head CTA 10/19/16 0000 Signed Impressions: Service Date/Time: Wednesday, October 19, 2016 14:19 - CONCLUSION: 1. Interval development of significant vasospasm in the left MCA and SRI territories. 2. Mild vasospasm in the basilar artery.. Gume Mckeon MD Cerebral Arteriogram 10/19/16 Signed Impressions: Service Date/Time: Wednesday, October 19, 2016 16:06 - CONCLUSION: 1. Vasospasm in the left MCA and SRI territories 2. Spasmolytic infusion, left internal carotid artery as above.. 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 Gume Mckeon MD Pelvis X-Ray 10/05/16109 Signed Impressions: Service Date/Time: Wednesday, October 05, 2016 01:22 - CONCLUSION: Unremarkable examination of the pelvis. Ruben Acuña Jr., MD Chest CT 10/05/16109 Signed Impressions: Service Date/Time: Wednesday, October 05, 2016 01:46 - CONCLUSION: 1. No acute intrathoracic abnormality. 2. Bibasilar atelectasis. 3. Cardiomegaly. 4. Prior granulomatous disease. Ruben Acuña Jr., MD Cervical Spine CT 10/05/16109 Signed Impressions: Service Date/Time: Wednesday, October 05, 2016 01:40 - CONCLUSION: 1. No fracture or dislocation. 2. Multilevel degenerative changes. Ruben Acuña Jr., MD Abdomen/Pelvis CT 10/05/16109 Signed Impressions: Service Date/Time: Wednesday, October 05, 2016 01:46 - CONCLUSION: 1. No acute trauma. 2. Rounded area of decreased density involving the pancreatic head. I cannot completely exclude pancreatic head mass. At some point MRI of the pancreas is suggested to further evaluate. 3. Focal area of poor enhancement involving the left kidney. This may relate to an area of parenchymal scarring. I cannot completely exclude a mass. This can be further assessed with MRI as well. Ruben Acuña Jr., MD Objective Remarks GENERAL: This is a well-nourished, well-developed patient, in no apparent distress. SKIN: Warm and dry. HEENT: Normocephalic. Nonicteric. No injection or drainage. Nose without bleeding. Airway patent. NECK: Trachea midline. Supple. CARDIOVASCULAR: Regular rate and rhythm without murmurs, gallops, or rubs. RESPIRATORY: Clear to auscultation. Breath sounds equal bilaterally. No wheezes , rales, or rhonchi. GASTROINTESTINAL: Abdomen soft, non-tender, nondistended. Bowel Sounds normoactive x4.. MUSCULOSKELETAL: Extremities without clubbing, cyanosis, or edema. NEUROLOGICAL: Awake and alert. Oriented to person, periods of confusion. Moves all extremities. Normal speech. 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 ICD Code: I60.8 Status: Acute (2) Hypertension ICD Code: I10 Status: Chronic (3) Major neurocognitive disorder due to vascular disease, without behavioral disturbance, severe ICD Code: F01.50 Status: Acute (4) Septic shock ICD Code: A41.9 Status: Resolved (5) Hydrocephalus ICD Code: G91.9 Status: Acute (6) Intracranial hemorrhage ICD Code: I62.9 Status: Acute (7) Major neurocognitive disorder as late effect of traumatic brain injury with behavioral disturbance ICD Code: S06.9X9S Status: Acute (8) Encephalopathy ICD Code: G93.40 Status: Acute (9) Sepsis ICD Code: A41.9 Status: Resolved (10) Pneumonia ICD Code: J18.9 Status: Acute (11) Protein-calorie malnutrition, mild ICD Code: E44.1 Status: Acute (12) Acute respiratory failure with hypoxia and hypercarbia ICD Code: J96.01 Status: Acute Assessment and Plan Mr. Nunez is a 51 year old male who was brought to the hospital as a trauma alert due to head injury after he fell in the bathroom and hit his head. Patient was unresponsive for approximately 15 minutes by the time ambulance services arrived. His mentation waxed and waned with GCS ranging from [address] head indicated subarachnoid hemorrhage, acute. Auditory hallucinations - Psychiatry consulted - Continues to have hallucinations but patients behavior has been much improved with seroquel use. Intracranial hemorrhage, status post basilar artery coiling 10/05, Status post FRANCHISE BUSINESS CONSULTANT shunt on 11/24/2016 Chronic encephalopathy Hydrocephalus Cortical blindness - Neurology signed off. Neuropsychology following patient ultimately for discharge placement and assistance with recommendations. Per neuropsych note, ongoing areas of concern include behavioral impulsivity, lack of insight and judgement. - Speech therapy recommends regular diet with thin liquids, Patient is eating well. PEG dc'd 01/08/17. - Cont PT/OT. - Continue Seroquel 100mg BID per psychiatry - Continue with reorientation - Encourage daily activities LLQ and suprapubic abdominal pain, resolved. - Denies any abdominal pain today. - UA negative, KUB unremarkable and CBC unremarkable. Acute hypoxic hypercarbic respiratory failure, resolved - Tracheostomy 10/23/16, removed, old trach site healed. - Monitor respiratory status C. difficile colitis, resolved - Completed Flagyl on 10/23 - No diarrhea reported - Will DC Lactinex Hypokalemia, resolved: Continue scheduled KCL 40 meq PO BID. Follow and replace as needed. - K+ 3.7 Auditory Hallucinations: Psychiatry consulted, appreciated assistance. DVT prophylaxis: SCDs, YOUSIF hose, Lovenox. Ambulation. GI prophylaxis: Protonix. Discussed with Pt, RN, and Dr. Cortes Discharge Planning Discharge planning ongoing. CM continues to address funding and placement issue. Pending SSI. Pt's safety is also in question due to his cognitive status. Neuropsychological testing results in EMR. Insight and awareness are greatly impaired. Problem Qualifiers (1) Hypertension: Qualified Code: I10 - Essential hypertension Tenzin Bronson MASKING MACHINE OPERATOR Feb 12, 2017 09:25
[2017-02-12 12:00] VITALS: BP 134/82; PULSE 73; RESP 16; O2SAT 95
[2017-02-12] MEDS ORDERED: RESP: ALBUTEROL 2.5 MG/IPRATROPIUM 0.5 MG NEB (PRN) INH (12:00)
[2017-02-12 16:00] VITALS: BP 132/83; PULSE 81; RESP 18; TEMP 97.3; O2SAT 98
[2017-02-12 19:48] VITALS: BP 123/70; PULSE 95; RESP 18; TEMP 98.3; O2SAT 97
[2017-02-12] MEDS: ENOXAPARIN SODIUM 40 MG/0.4 ML SYRINGE SQ SCH (23:15)
[2017-02-13] VITALS (7 sets, daily range): BP systolic 114–168; BP diastolic 66–89; PULSE 80–99; RESP 16–20; TEMP 97.3–98.3; O2SAT 94–97
[2017-02-13] MEDS: LABETALOL HCL 100 MG TAB PO SCH ×3 (04:51→22:03)
--- NOTE | 2017-02-13 09:35 | HHI.PR ---
Subjective Remarks Follow-up visit intracranial hemorrhage, basilar tip aneurysm, Status post [employer] shunt. Patient seen and examined today. States he is doing well. As per nursing, no acute issues. Patient denies any complaints. Objective Vitals Vital Signs Date Time Temp Pulse Resp B/P Pulse Ox O2 Delivery O2 Flow Rate FiO2 02/13/17 08:08 97.6 80 16 135/82 95 02/13/17 04:00 98.1 84 18 164/73 97 02/13/17 00:00 98.3 86 18 168/70 97 02/12/17 19:48 98.3 95 18 123/70 97 02/12/17 16:00 97.3 81 18 132/83 98 02/12/17 12:00 73 16 134/82 95 I/O 02/12/17 02/12/17 02/12/17 02/13/17 02/13/17 02/13/17 07:00 15:00 23:00 07:00 15:00 23:00 Intake Total 0 ml 500 ml Balance 0 ml 500 ml Intake Oral 0 ml 500 ml # Voids 1 3 4 # Bowel Movements 1 0 Result Diagram: 02/09/17 1228 Imaging Last Impressions Abdomen X-Ray 01/20/17 0000 Signed Impressions: Service Date/Time: Friday, January 20, 2017 10:46 - CONCLUSION: No acute abnormality is identified. Tim Montgomery MD Head CT 12/09/16 0000 Signed Impressions: Service Date/Time: Friday, December 09, 2016 17:36 - CONCLUSION: 1. Right ventriculostomy tube remains in place with decrease in ventricular size since November 24. There is some encephalomalacia around the shunt and a probable small infarct in the left basal ganglia. No new hemorrhage or shift. Tip Harris MD Chest X-Ray 11/01/16 0600 Signed Impressions: Service Date/Time: Tuesday, November 01, 2016 04:37 - CONCLUSION: 1. No acute cardiopulmonary disease. Trevin De León MD Transcranial Doppler Study Complete 10/26/16 0700 Signed Impressions: Service Date/Time: Wednesday, October 26, 2016 08:20 - CONCLUSION: Minimal interval improvement with no evidence for vasospasm. Christian Song MD FACR Neck CTA 10/19/16 0000 Signed Impressions: Service Date/Time: Wednesday, October 19, 2016 14:19 - CONCLUSION: Negative for dissection or significant stenosis. Christian Song MD FACR Head CTA 10/19/16 0000 Signed Impressions: Service Date/Time: Wednesday, October 19, 2016 14:19 - CONCLUSION: 1. Interval development of significant vasospasm in the left MCA and SRI territories. 2. Mild vasospasm in the basilar artery.. Gume Mckeon MD Cerebral Arteriogram 10/19/16 0000 Signed Impressions: Service Date/Time: Wednesday, October 19, 2016 16:06 - CONCLUSION: 1. Vasospasm in the left MCA and SRI territories 2. Spasmolytic infusion, left internal carotid artery as above.. 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 Gume Mckeon MD Pelvis X-Ray 10/05/16109 Signed Impressions: Service Date/Time: Wednesday, October 05, 2016 01:22 - CONCLUSION: Unremarkable examination of the pelvis. Ruben Acuña Jr., MD Chest CT 10/05/16109 Signed Impressions: Service Date/Time: Wednesday, October 05, 2016 01:46 - CONCLUSION: 1. No acute intrathoracic abnormality. 2. Bibasilar atelectasis. 3. Cardiomegaly. 4. Prior granulomatous disease. Ruben Acuña Jr., MD Cervical Spine CT 10/05/16109 Signed Impressions: Service Date/Time: Wednesday, October 05, 2016 01:40 - CONCLUSION: 1. No fracture or dislocation. 2. Multilevel degenerative changes. Ruben Acuña Jr., MD Abdomen/Pelvis CT 10/05/16109 Signed Impressions: Service Date/Time: Wednesday, October 05, 2016 01:46 - CONCLUSION: 1. No acute trauma. 2. Rounded area of decreased density involving the pancreatic head. I cannot completely exclude pancreatic head mass. At some point MRI of the pancreas is suggested to further evaluate. 3. Focal area of poor enhancement involving the left kidney. This may relate to an area of parenchymal scarring. I cannot completely exclude a mass. This can be further assessed with MRI as well. Ruben Acuña Jr., MD Objective Remarks GENERAL: This is a well-nourished, well-developed patient, in no apparent distress. SKIN: Warm and dry. HEENT: Normocephalic. Nonicteric. No injection or drainage. Nose without bleeding. Airway patent. NECK: Trachea midline. Supple. CARDIOVASCULAR: Regular rate and rhythm without murmurs, gallops, or rubs. RESPIRATORY: Clear to auscultation. Breath sounds equal bilaterally. No wheezes , rales, or rhonchi. GASTROINTESTINAL: Abdomen soft, non-tender, nondistended. Bowel Sounds normoactive x4.. MUSCULOSKELETAL: Extremities without clubbing, cyanosis, or edema. NEUROLOGICAL: Awake and alert. Oriented to person, periods of confusion. Moves all extremities. Normal speech. 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 ICD Code: I60.8 Status: Acute (2) Hypertension ICD Code: I10 Status: Chronic (3) Major neurocognitive disorder due to vascular disease, without behavioral disturbance, severe ICD Code: F01.50 Status: Acute (4) Septic shock ICD Code: A41.9 Status: Resolved (5) Hydrocephalus ICD Code: G91.9 Status: Acute (6) Intracranial hemorrhage ICD Code: I62.9 Status: Acute (7) Major neurocognitive disorder as late effect of traumatic brain injury with behavioral disturbance ICD Code: S06.9X9S Status: Acute (8) Encephalopathy ICD Code: G93.40 Status: Acute (9) Sepsis ICD Code: A41.9 Status: Resolved (10) Pneumonia ICD Code: J18.9 Status: Acute (11) Protein-calorie malnutrition, mild ICD Code: E44.1 Status: Acute (12) Acute respiratory failure with hypoxia and hypercarbia ICD Code: J96.01 Status: Acute Assessment and Plan Mr. Nunez is a 51 year old male who was brought to the hospital as a trauma alert due to head injury after he fell in the bathroom and hit his head. Patient was unresponsive for approximately 15 minutes by the time ambulance services arrived. His mentation waxed and waned with GCS ranging from [address] head indicated subarachnoid hemorrhage, acute. Auditory hallucinations - Psychiatry consulted - Continues to have hallucinations but patients behavior has been much improved with seroquel use. - Continue to monitor with ADLs Intracranial hemorrhage, status post basilar artery coiling 10/05, Status post [employer] shunt on 11/24/2016 Chronic encephalopathy Hydrocephalus Cortical blindness - Neurology signed off. Neuropsychology following patient ultimately for discharge placement and assistance with recommendations. Per neuropsych note, ongoing areas of concern include behavioral impulsivity, lack of insight and judgement. - Speech therapy recommends regular diet with thin liquids, Patient is eating well. PEG dc'd 01/08/17. - Cont PT/OT. - Continue Seroquel 100mg BID per psychiatry - Continue with reorientation - Encourage daily activities LLQ and suprapubic abdominal pain, resolved. - Denies any abdominal pain today. - UA negative, KUB unremarkable and CBC unremarkable. Acute hypoxic hypercarbic respiratory failure, resolved - Tracheostomy 10/23/16, removed, old trach site healed. - Monitor respiratory status C. difficile colitis, resolved - Completed Flagyl on 10/23 - No diarrhea reported - off Lactinex Hypokalemia, resolved: Continue scheduled KCL 40 meq PO BID. Follow and replace as needed. - K+ 3.7 Auditory Hallucinations: Psychiatry consulted, appreciated assistance. DVT prophylaxis: SCDs, YOUSIF hose, Lovenox. Ambulation. GI prophylaxis: Protonix. Discussed with Pt, RN, and Dr. Cortes Discharge Planning Discharge planning ongoing. CM continues to address funding and placement issue. Pending SSI. Pt's safety is also in question due to his cognitive status. Neuropsychological testing results in EMR. Insight and awareness are greatly impaired. Problem Qualifiers (1) Hypertension: Qualified Code: I10 - Essential hypertension Tenzin Bronson Feb 13, 2017 09:35
[2017-02-13] MEDS: PANTOPRAZOLE SOD 40 MG DELAYED RELEASE TAB PO SCH (09:57)
[2017-02-13] MEDS: QUEtiapine FUMARATE 100 MG TAB PO SCH ×2 (09:58→12:04)
[2017-02-13] MEDS: amLODIPine BESYLATE 5 MG TAB PO SCH (09:58)
[2017-02-13] MEDS: PRAVASTATIN SOD 40 MG TAB PO SCH (09:58)
[2017-02-13] MEDS: POTASSIUM CHLORIDE 20 MEQ CONTROLLED RELEASE TAB PO SCH (09:58)
[2017-02-13] MEDS: ENOXAPARIN SODIUM 40 MG/0.4 ML SYRINGE SQ SCH (22:04)
[2017-02-14 04:11] VITALS: BP 118/66; PULSE 74; RESP 19; TEMP 97.7; O2SAT 94
[2017-02-14] MEDS: LABETALOL HCL 100 MG TAB PO SCH ×3 (05:02→20:19)
[2017-02-14 08:09] VITALS: BP 132/80; PULSE 79; RESP 18; TEMP 97.7; O2SAT 94
[2017-02-14] MEDS: amLODIPine BESYLATE 5 MG TAB PO SCH (08:23)
[2017-02-14] MEDS: PRAVASTATIN SOD 40 MG TAB PO SCH (08:23)
[2017-02-14] MEDS: POTASSIUM CHLORIDE 20 MEQ CONTROLLED RELEASE TAB PO SCH (08:23)
[2017-02-14] MEDS: QUEtiapine FUMARATE 100 MG TAB PO SCH ×2 (08:23→11:51)
[2017-02-14] MEDS: PANTOPRAZOLE SOD 40 MG DELAYED RELEASE TAB PO SCH (08:23)
[2017-02-14 11:59] VITALS: BP 108/66; PULSE 94; RESP 18; TEMP 98.2; O2SAT 95
--- NOTE | 2017-02-14 14:33 | HHI.PR ---
Subjective Remarks Follow-up visit intracranial hemorrhage, basilar tip aneurysm, Status post [employer] shunt. Patient seen and examined today. Patient has no complaints today. He denies any fever or chills. Denies any chest pain or shortness of breath. He denies any nausea, vomiting or abdominal pain. Reports having a good appetite. Denies any dysuria or diarrhea. Objective Vitals Vital Signs Date Time Temp Pulse Resp B/P Pulse Ox O2 Delivery O2 Flow Rate FiO2 02/14/17 11:59 98.2 94 18 108/66 95 02/14/17 08:09 97.7 79 18 132/80 94 02/14/17 04:11 97.7 74 19 118/66 94 02/13/17 20:12 97.7 99 18 125/89 96 02/13/17 16:15 97.6 98 20 114/76 95 I/O 02/13/17 02/13/17 02/13/17 02/14/17 02/14/17 02/14/17 07:00 15:00 23:00 07:00 15:00 23:00 Intake Total 960 ml Balance 960 ml Intake Oral 960 ml # Voids 4 5 1 # Bowel Movements 1 Imaging Last Impressions Abdomen X-Ray 01/20/17 0000 Signed Impressions: Service Date/Time: Friday, January 20, 2017 10:46 - CONCLUSION: No acute abnormality is identified. Tim Montgomery MD Head CT 12/09/16 0000 Signed Impressions: Service Date/Time: Friday, December 09, 2016 17:36 - CONCLUSION: 1. Right ventriculostomy tube remains in place with decrease in ventricular size since November 24. There is some encephalomalacia around the shunt and a probable small infarct in the left basal ganglia. No new hemorrhage or shift. Tip Harris MD Chest X-Ray 11/01/16 0600 Signed Impressions: Service Date/Time: Tuesday, November 01, 2016 04:37 - CONCLUSION: 1. No acute cardiopulmonary disease. Trevin De León MD Transcranial Doppler Study Complete 10/26/16 0700 Signed Impressions: Service Date/Time: Wednesday, October 26, 2016 08:20 - CONCLUSION: Minimal interval improvement with no evidence for vasospasm. Christian Song MD FACR Neck CTA 10/19/16 0000 Signed Impressions: Service Date/Time: Wednesday, October 19, 2016 14:19 - CONCLUSION: Negative for dissection or significant stenosis. Christian Song MD FACR Head CTA 10/19/16 0000 Signed Impressions: Service Date/Time: Wednesday, October 19, 2016 14:19 - CONCLUSION: 1. Interval development of significant vasospasm in the left MCA and SRI territories. 2. Mild vasospasm in the basilar artery.. Gume Mckeon MD Cerebral Arteriogram 10/19/16 0000 Signed Impressions: Service Date/Time: Wednesday, October 19, 2016 16:06 - CONCLUSION: 1. Vasospasm in the left MCA and SRI territories 2. Spasmolytic infusion, left internal carotid artery as above.. 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 Gume Mckeon MD Pelvis X-Ray 10/05/16109 Signed Impressions: Service Date/Time: Wednesday, October 05, 2016 01:22 - CONCLUSION: Unremarkable examination of the pelvis. Ruben Acuña Jr., MD Chest CT 10/05/16109 Signed Impressions: Service Date/Time: Wednesday, October 05, 2016 01:46 - CONCLUSION: 1. No acute intrathoracic abnormality. 2. Bibasilar atelectasis. 3. Cardiomegaly. 4. Prior granulomatous disease. Ruben Acuña Jr., MD Cervical Spine CT 10/05/16109 Signed Impressions: Service Date/Time: Wednesday, October 05, 2016 01:40 - CONCLUSION: 1. No fracture or dislocation. 2. Multilevel degenerative changes. Ruben Acuña Jr., MD Abdomen/Pelvis CT 10/05/16109 Signed Impressions: Service Date/Time: Wednesday, October 05, 2016 01:46 - CONCLUSION: 1. No acute trauma. 2. Rounded area of decreased density involving the pancreatic head. I cannot completely exclude pancreatic head mass. At some point MRI of the pancreas is suggested to further evaluate. 3. Focal area of poor enhancement involving the left kidney. This may relate to an area of parenchymal scarring. I cannot completely exclude a mass. This can be further assessed with MRI as well. Ruben Acuña Jr., MD Last Impressions Abdomen X-Ray 01/20/17 0000 Signed Impressions: Service Date/Time: Friday, January 20, 2017 10:46 - CONCLUSION: No acute abnormality is identified. Tim Montgomery MD Head CT 12/09/16 0000 Signed Impressions: Service Date/Time: Friday, December 09, 2016 17:36 - CONCLUSION: 1. Right ventriculostomy tube remains in place with decrease in ventricular size since November 24. There is some encephalomalacia around the shunt and a probable small infarct in the left basal ganglia. No new hemorrhage or shift. Tip Harris MD Chest X-Ray 11/01/16 0600 Signed Impressions: Service Date/Time: Tuesday, November 01, 2016 04:37 - CONCLUSION: 1. No acute cardiopulmonary disease. Trevin De León MD Transcranial Doppler Study Complete 10/26/16 0700 Signed Impressions: Service Date/Time: Wednesday, October 26, 2016 08:20 - CONCLUSION: Minimal interval improvement with no evidence for vasospasm. Christian Song MD FACR Neck CTA 10/19/16 0000 Signed Impressions: Service Date/Time: Wednesday, October 19, 2016 14:19 - CONCLUSION: Negative for dissection or significant stenosis. Christian Song MD FACR Head CTA 10/19/16 0000 Signed Impressions: Service Date/Time: Wednesday, October 19, 2016 14:19 - CONCLUSION: 1. Interval development of significant vasospasm in the left MCA and SRI territories. 2. Mild vasospasm in the basilar artery.. Gume Mckeon MD Cerebral Arteriogram 10/19/16 0000 Signed Impressions: Service Date/Time: Wednesday, October 19, 2016 16:06 - CONCLUSION: 1. Vasospasm in the left MCA and SRI territories 2. Spasmolytic infusion, left internal carotid artery as above.. 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 Gume Mckeon MD Pelvis X-Ray 10/05/16 0110 Signed Impressions: Service Date/Time: Wednesday, October 05, 2016 01:22 - CONCLUSION: Unremarkable examination of the pelvis. Ruben Acuña Jr., MD Chest CT 10/05/16109 Signed Impressions: Service Date/Time: Wednesday, October 05, 2016 01:46 - CONCLUSION: 1. No acute intrathoracic abnormality. 2. Bibasilar atelectasis. 3. Cardiomegaly. 4. Prior granulomatous disease. Ruben Acuña Jr., MD Cervical Spine CT 10/05/16109 Signed Impressions: Service Date/Time: Wednesday, October 05, 2016 01:40 - CONCLUSION: 1. No fracture or dislocation. 2. Multilevel degenerative changes. Ruben Acuña Jr., MD Abdomen/Pelvis CT 10/05/16109 Signed Impressions: Service Date/Time: Wednesday, October 05, 2016 01:46 - CONCLUSION: 1. No acute trauma. 2. Rounded area of decreased density involving the pancreatic head. I cannot completely exclude pancreatic head mass. At some point MRI of the pancreas is suggested to further evaluate. 3. Focal area of poor enhancement involving the left kidney. This may relate to an area of parenchymal scarring. I cannot completely exclude a mass. This can be further assessed with MRI as well. Ruben Acuña Jr., MD Objective Remarks GENERAL: Well-nourished, well-developed male patient, in no apparent distress. Awake and alert. Sitting up at nurses station eating breakfast. SKIN: No rash. Warm and dry. HEENT: Normocephalic. Extraocular motions intact. No scleral icterus. No injection or drainage. Nose without bleeding. MMM. Airway patent. NECK: Trachea midline. Supple. CARDIOVASCULAR: RRR. No murmur appreciated. RESPIRATORY: Clear to auscultation. Breath sounds equal bilaterally. No wheezes , rales, or rhonchi. GASTROINTESTINAL: Abdomen soft, nondistended and nontender. BS x 4. MUSCULOSKELETAL: Extremities without clubbing, cyanosis, or edema. NEUROLOGICAL: Awake and alert. Oriented to self only. Moves all 4 extremities. Motor and sensory function grossly intact. Normal speech. Procedures 10/05/16 right frontal twist drill for ventriculostomy placement 10/20/16 arterial line placement 10/23/16 bedside percutaneous tracheostomy under direct bronchoscopic visualization 10/24/16 PEG tube placement at bedside Medications and IVs Current Medications Medications (Trade) Dose Ordered Sig/Nava Route Start Time Stop Time Status Last Admin (Tylenol) 650 mg Q6H PRN PO 10/05/16 02:45 01/08/17 20:27 (Zofran Inj) 4 mg Q6H PRN IV 10/05/16 02:45 11/27/16 23:26 Miscellaneous Information 1 Q361D XX 10/05/16 02:45 10/05/16 02:45 (Pravachol) 40 mg DAILY PO 10/05/16 09:00 02/14/17 08:23 (Lovenox Inj) 40 mg Q24H SQ 10/23/16 21:00 02/13/17 22:04 (Trandate) 100 mg Q8H PO 11/03/16 20:00 02/14/17 11:51 (Norvasc) 5 mg DAILY PO 11/04/16 09:00 02/14/17 08:23 (Imodium) 2 mg UNSCH PRN PO 11/09/16 09:45 11/29/16 12:57 (Lomotil Tab) 1 tab Q6H PRN PO 11/09/16 09:45 (Lactulose Liq) 30 ml QID PRN PO 12/09/16 13:45 (Protonix) 40 mg DAILY PO 12/16/16 09:00 02/14/17 08:23 (Benadryl) 50 mg Q6H PRN PO 12/20/16 17:45 02/09/17 21:05 (SEROquel) 100 mg BID@09,12 PO 01/30/17 12:00 02/14/17 11:51 (Colace) 100 mg Q12H PRN PO 02/12/17 00:15 (KCl) 40 meq DAILY PO 02/13/17 09:00 02/14/17 08:23 A/P Problem List: (1) 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 ICD Code: I60.8 Status: Acute (2) Hypertension ICD Code: I10 Status: Chronic (3) Major neurocognitive disorder due to vascular disease, without behavioral disturbance, severe ICD Code: F01.50 Status: Acute (4) Septic shock ICD Code: A41.9 Status: Resolved (5) Hydrocephalus ICD Code: G91.9 Status: Acute (6) Intracranial hemorrhage ICD Code: I62.9 Status: Acute (7) Major neurocognitive disorder as late effect of traumatic brain injury with behavioral disturbance ICD Code: S06.9X9S Status: Acute (8) Encephalopathy ICD Code: G93.40 Status: Acute (9) Sepsis ICD Code: A41.9 Status: Resolved (10) Pneumonia ICD Code: J18.9 Status: Acute (11) Protein-calorie malnutrition, mild ICD Code: E44.1 Status: Acute (12) Acute respiratory failure with hypoxia and hypercarbia ICD Code: J96.01 Status: Acute Assessment and Plan Mr. Nunez is a 51 year old male who was brought to the hospital as a trauma alert due to head injury after he fell in the bathroom and hit his head. Patient was unresponsive for approximately 15 minutes by the time ambulance services arrived. His mentation waxed and waned with GCS ranging from [address] head indicated subarachnoid hemorrhage, acute. Auditory hallucinations - Psychiatry consulted - Continues to have hallucinations but patients behavior has been much improved with Seroquel use. - Continue to monitor with ADLs Intracranial hemorrhage, status post basilar artery coiling 10/05, Status post [employer] shunt on 11/24/2016 Chronic encephalopathy Hydrocephalus Cortical blindness - Neurology signed off. Neuropsychology following patient ultimately for discharge placement and assistance with recommendations. Per neuropsych note, ongoing areas of concern include behavioral impulsivity, lack of insight and judgement. - Speech therapy recommends regular diet with thin liquids, Patient is eating well. PEG dc'd 01/08/17. - Cont PT/OT. - Continue Seroquel 100mg BID per psychiatry - Continue with reorientation - Encourage daily activities HTN - controlled - continue on Norvasc 5mg daily and Labetalol 100mg q8h LLQ and suprapubic abdominal pain, resolved. - UA negative, KUB unremarkable and CBC unremarkable. Acute hypoxic hypercarbic respiratory failure, resolved - Tracheostomy 10/23/16, removed, old trach site healed. - Monitor respiratory status C. difficile colitis, resolved - Completed Flagyl on 10/23 - No diarrhea reported - off Lactinex Hypokalemia, resolved - Continue scheduled KCL 40 meq PO daily. - Follow and replace as needed. - K+ 3.7 - repeat K in am DVT prophylaxis: SCDs, YOUSIF hose, Lovenox. Ambulation. GI prophylaxis: Protonix. Discussed with patient and Dr. Cortes Discharge Planning Discharge planning ongoing. CM continues to address funding and placement issue. Pending SSI. Problem Qualifiers (1) Hypertension: Qualified Code: I10 - Essential hypertension Debra Krause Feb 14, 2017 14:33
[2017-02-14 15:23] VITALS: BP 121/76; PULSE 94; RESP 17; TEMP 98.3; O2SAT 95
[2017-02-14 20:12] VITALS: BP 128/67; PULSE 97; RESP 18; TEMP 98.3; O2SAT 92
[2017-02-14] MEDS: ENOXAPARIN SODIUM 40 MG/0.4 ML SYRINGE SQ SCH (20:19)
[2017-02-15] VITALS: BP 119/68; PULSE 84; RESP 18; TEMP 97.6; O2SAT 94
[2017-02-15] MEDS: LABETALOL HCL 100 MG TAB PO SCH ×3 (03:39→20:00)
[2017-02-15 04:09] VITALS: BP 113/74; PULSE 79; RESP 20; TEMP 97.3; O2SAT 93
[2017-02-15] MEDS: amLODIPine BESYLATE 5 MG TAB PO SCH (08:08)
[2017-02-15] MEDS: QUEtiapine FUMARATE 100 MG TAB PO SCH ×2 (08:08→13:51)
[2017-02-15] MEDS: PANTOPRAZOLE SOD 40 MG DELAYED RELEASE TAB PO SCH (08:08)
[2017-02-15] MEDS: POTASSIUM CHLORIDE 20 MEQ CONTROLLED RELEASE TAB PO SCH (08:08)
[2017-02-15] MEDS: PRAVASTATIN SOD 40 MG TAB PO SCH (08:08)
[2017-02-15 08:25] VITALS: BP 124/83; PULSE 94; RESP 22; TEMP 97.9; O2SAT 94
[2017-02-15 12:00] VITALS: BP 98/53; PULSE 87; RESP 20; TEMP 97.6; O2SAT 96
--- NOTE | 2017-02-15 12:52 | HHI.PR ---
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 Patient seen and examined. Patient is confused. He denies any acute complaints today. He denies any fever or chills. Denies any chest pain or SOB. Denies any N/V or abdominal pain. Objective Vitals Vital Signs Date Time Temp Pulse Resp B/P Pulse Ox O2 Delivery O2 Flow Rate FiO2 02/15/17 12:00 97.6 87 20 98/53 96 02/15/17 08:25 97.9 94 22 124/83 94 02/15/17 04:09 97.3 79 20 113/74 93 02/15/17 00:00 97.6 84 18 119/68 94 02/14/17 20:12 98.3 97 18 128/67 92 02/14/17 15:23 98.3 94 17 121/76 95 I/O 02/14/17 02/14/17 02/14/17 02/15/17 02/15/17 02/15/17 06:59 14:59 22:59 06:59 14:59 22:59 Intake Total 2400 ml Balance 2400 ml Intake Oral 2400 ml # Voids 1 3 4 1 # Bowel Movements 0 2 Result Diagram: 02/15/17 0845 Imaging Last Impressions Abdomen X-Ray 01/20/17 0000 Signed Impressions: Service Date/Time: Friday, January 20, 2017 10:46 - CONCLUSION: No acute abnormality is identified. Tim Montgomery MD Head CT 12/09/16 0000 Signed Impressions: Service Date/Time: Friday, December 09, 2016 17:36 - CONCLUSION: 1. Right ventriculostomy tube remains in place with decrease in ventricular size since November 24. There is some encephalomalacia around the shunt and a probable small infarct in the left basal ganglia. No new hemorrhage or shift. Tip Harris MD Chest X-Ray 11/01/16 0600 Signed Impressions: Service Date/Time: Tuesday, November 01, 2016 04:37 - CONCLUSION: 1. No acute cardiopulmonary disease. Trevin De León MD Transcranial Doppler Study Complete 10/26/16 0700 Signed Impressions: Service Date/Time: Wednesday, October 26, 2016 08:20 - CONCLUSION: Minimal interval improvement with no evidence for vasospasm. Christian Song MD FACR Neck CTA 10/19/16 0000 Signed Impressions: Service Date/Time: Wednesday, October 19, 2016 14:19 - CONCLUSION: Negative for dissection or significant stenosis. Christian Song MD FACR Head CTA 10/19/16 0000 Signed Impressions: Service Date/Time: Wednesday, October 19, 2016 14:19 - CONCLUSION: 1. Interval development of significant vasospasm in the left MCA and SRI territories. 2. Mild vasospasm in the basilar artery.. Gume Mckeon MD Cerebral Arteriogram 10/19/16 0000 Signed Impressions: Service Date/Time: Wednesday, October 19, 2016 16:06 - CONCLUSION: 1. Vasospasm in the left MCA and SRI territories 2. Spasmolytic infusion, left internal carotid artery as above.. 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 Gume Mckeon MD Pelvis X-Ray 10/05/16109 Signed Impressions: Service Date/Time: Wednesday, October 05, 2016 01:22 - CONCLUSION: Unremarkable examination of the pelvis. Ruben Acuña Jr., MD Chest CT 10/05/16109 Signed Impressions: Service Date/Time: Wednesday, October 05, 2016 01:46 - CONCLUSION: 1. No acute intrathoracic abnormality. 2. Bibasilar atelectasis. 3. Cardiomegaly. 4. Prior granulomatous disease. Ruben Acuña Jr., MD Cervical Spine CT 10/05/16109 Signed Impressions: Service Date/Time: Wednesday, October 05, 2016 01:40 - CONCLUSION: 1. No fracture or dislocation. 2. Multilevel degenerative changes. Ruben Acuña Jr., MD Abdomen/Pelvis CT 10/05/16109 Signed Impressions: Service Date/Time: Wednesday, October 05, 2016 01:46 - CONCLUSION: 1. No acute trauma. 2. Rounded area of decreased density involving the pancreatic head. I cannot completely exclude pancreatic head mass. At some point MRI of the pancreas is suggested to further evaluate. 3. Focal area of poor enhancement involving the left kidney. This may relate to an area of parenchymal scarring. I cannot completely exclude a mass. This can be further assessed with MRI as well. Ruben Acuña Jr., MD Objective Remarks GENERAL: Well-nourished, well-developed male patient, in no apparent distress. Awake and alert. Lying in hospital bed. SKIN: No rash. Warm and dry. HEENT: Normocephalic. Extraocular motions intact. No scleral icterus. No injection or drainage. Nose without bleeding. MMM. Airway patent. NECK: Trachea midline. Supple. CARDIOVASCULAR: RRR. No murmur appreciated. RESPIRATORY: Clear to auscultation. Breath sounds equal bilaterally. No wheezes , rales, or rhonchi. GASTROINTESTINAL: Abdomen soft, nondistended and nontender. BS x 4. MUSCULOSKELETAL: Extremities without clubbing, cyanosis, or edema. NEUROLOGICAL: Awake and alert. Oriented to self only. Moves all 4 extremities. Motor and sensory function grossly intact. Normal speech. Procedures 10/05/16 right frontal twist drill for ventriculostomy placement 10/20/16 arterial line placement 10/23/16 bedside percutaneous tracheostomy under direct bronchoscopic visualization 10/24/16 PEG tube placement at bedside Medications and IVs Current Medications Medications (Trade) Dose Ordered Sig/Nava Route Start Time Stop Time Status Last Admin (Tylenol) 650 mg Q6H PRN PO 10/05/16 02:45 01/08/17 20:27 (Zofran Inj) 4 mg Q6H PRN IV 10/05/16 02:45 11/27/16 23:26 Miscellaneous Information 1 Q361D XX 10/05/16 02:45 10/05/16 02:45 (Pravachol) 40 mg DAILY PO 10/05/16 09:00 02/15/17 08:08 (Lovenox Inj) 40 mg Q24H SQ 10/23/16 21:00 02/14/17 20:19 (Trandate) 100 mg Q8H PO 11/03/16 20:00 02/14/17 20:19 (Norvasc) 5 mg DAILY PO 11/04/16 09:00 02/15/17 08:08 (Imodium) 2 mg UNSCH PRN PO 11/09/16 09:45 11/29/16 12:57 (Lomotil Tab) 1 tab Q6H PRN PO 11/09/16 09:45 (Lactulose Liq) 30 ml QID PRN PO 12/09/16 13:45 (Protonix) 40 mg DAILY PO 12/16/16 09:00 02/15/17 08:08 (Benadryl) 50 mg Q6H PRN PO 12/20/16 17:45 02/09/17 21:05 (SEROquel) 100 mg BID@09,12 PO 01/30/17 12:00 02/15/17 08:08 (Colace) 100 mg Q12H PRN PO 02/12/17 00:15 (KCl) 40 meq DAILY PO 02/13/17 09:00 02/15/17 08:08 A/P Problem List: (1) 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 ICD Code: I60.8 Status: Acute (2) Hypertension ICD Code: I10 Status: Chronic (3) Major neurocognitive disorder due to vascular disease, without behavioral disturbance, severe ICD Code: F01.50 Status: Acute (4) Septic shock ICD Code: A41.9 Status: Resolved (5) Hydrocephalus ICD Code: G91.9 Status: Acute (6) Intracranial hemorrhage ICD Code: I62.9 Status: Acute (7) Major neurocognitive disorder as late effect of traumatic brain injury with behavioral disturbance ICD Code: S06.9X9S Status: Acute (8) Encephalopathy ICD Code: G93.40 Status: Acute (9) Sepsis ICD Code: A41.9 Status: Resolved (10) Pneumonia ICD Code: J18.9 Status: Acute (11) Protein-calorie malnutrition, mild ICD Code: E44.1 Status: Acute (12) Acute respiratory failure with hypoxia and hypercarbia ICD Code: J96.01 Status: Acute Assessment and Plan Mr. Nunez is a 51 year old male who was brought to the hospital as a trauma alert due to head injury after he fell in the bathroom and hit his head. Patient was unresponsive for approximately 15 minutes by the time ambulance services arrived. His mentation waxed and waned with GCS ranging from [address] head indicated subarachnoid hemorrhage, acute. Auditory hallucinations - Psychiatry consulted - Continues to have hallucinations but patients behavior has been much improved with Seroquel use. 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 Neuropsychology following patient ultimately for discharge placement and assistance with recommendations. Per neuropsych note, ongoing areas of concern include behavioral impulsivity, lack of insight and judgement. - Speech therapy recommends regular diet with thin liquids, Patient is eating well. PEG dc'd 01/08/17. - Cont PT/OT. - Continue Seroquel 100mg BID per psychiatry - Continue with reorientation - Encourage daily activities HTN - controlled - continue on Norvasc 5mg daily and Labetalol 100mg q8h LLQ and suprapubic abdominal pain, resolved. - UA negative, KUB unremarkable and CBC unremarkable. Acute hypoxic hypercarbic respiratory failure, resolved - Tracheostomy 10/23/16, removed, old trach site healed. - Monitor respiratory status C. difficile colitis, resolved - Completed Flagyl on 10/23 - No diarrhea reported - off Lactinex Hypokalemia, resolved - Continue scheduled KCL 40 meq PO daily. - Follow and replace as needed. - K+ 3.7 - today's potassium 4.2 DVT prophylaxis: SCDs, YOUSIF hose, Lovenox. Ambulation. GI prophylaxis: Protonix. Discussed with patient and Dr. Cortes Discharge Planning Discharge planning ongoing. CM continues to address funding and placement issue. Pending SSI. Problem Qualifiers (1) Hypertension: Qualified Code: I10 - Essential hypertension Debra Krause Feb 15, 2017 12:52
[2017-02-15 15:53] VITALS: BP 120/75; PULSE 91; RESP 18; TEMP 98.3; O2SAT 95
[2017-02-15] MEDS: ENOXAPARIN SODIUM 40 MG/0.4 ML SYRINGE SQ SCH (20:00)
[2017-02-15 20:44] VITALS: BP 139/83; PULSE 85; RESP 18; TEMP 98.1; O2SAT 95
[2017-02-16] VITALS: BP 133/80; PULSE 78; RESP 20; TEMP 97.8; O2SAT 94
[2017-02-16] MEDS: LABETALOL HCL 100 MG TAB PO SCH ×3 (03:41→21:37)
[2017-02-16 05:01] VITALS: BP 124/79; PULSE 79; RESP 20; TEMP 98.1; O2SAT 94
[2017-02-16 08:00] VITALS: BP 123/82; PULSE 83; RESP 17; TEMP 97.6; O2SAT 94
[2017-02-16] MEDS: POTASSIUM CHLORIDE 20 MEQ CONTROLLED RELEASE TAB PO SCH (09:10)
[2017-02-16] MEDS: PANTOPRAZOLE SOD 40 MG DELAYED RELEASE TAB PO SCH (09:10)
[2017-02-16] MEDS: PRAVASTATIN SOD 40 MG TAB PO SCH (09:10)
[2017-02-16] MEDS: QUEtiapine FUMARATE 100 MG TAB PO SCH ×2 (09:11→12:03)
[2017-02-16] MEDS: amLODIPine BESYLATE 5 MG TAB PO SCH (09:11)
[2017-02-16 12:09] VITALS: BP 130/80; PULSE 82; RESP 17; TEMP 97.8; O2SAT 95
--- NOTE | 2017-02-16 12:30 | HHI.PR ---
Subjective Remarks Follow-up visit intracranial hemorrhage, basilar tip aneurysm, Status post [employer] TRA[employer]IC [employer]IST shunt. Patient seen and examined. Patient sitting up at nurses station. He is awake and alert. Oriented to self only. No acute issues overnight. Objective Vitals Vital Signs Date Time Temp Pulse Resp B/P Pulse Ox O2 Delivery O2 Flow Rate FiO2 02/16/17 12:09 97.8 82 17 130/80 95 02/16/17 08:00 97.6 83 17 123/82 94 02/16/17 05:01 98.1 79 20 124/79 94 02/16/17 00:00 97.8 78 20 133/80 94 02/15/17 20:44 98.1 85 18 139/83 95 02/15/17 15:53 98.3 91 18 120/75 95 I/O 02/15/17 02/15/17 02/15/17 02/16/17 02/16/17 02/16/17 07:00 15:00 23:00 07:00 15:00 23:00 # Voids 4 1 2 2 # Bowel Movements 2 0 1 Result Diagram: 02/15/17 0845 Imaging Last Impressions Abdomen X-Ray 01/20/17 0000 Signed Impressions: Service Date/Time: Friday, January 20, 2017 10:46 - CONCLUSION: No acute abnormality is identified. Tim Montgomery MD Head CT 12/09/16 0000 Signed Impressions: Service Date/Time: Friday, December 09, 2016 17:36 - CONCLUSION: 1. Right ventriculostomy tube remains in place with decrease in ventricular size since November 24. There is some encephalomalacia around the shunt and a probable small infarct in the left basal ganglia. No new hemorrhage or shift. Tip Harris MD Chest X-Ray 11/01/16 0600 Signed Impressions: Service Date/Time: Tuesday, November 01, 2016 04:37 - CONCLUSION: 1. No acute cardiopulmonary disease. Trevin De León MD Transcranial Doppler Study Complete 10/26/16 0700 Signed Impressions: Service Date/Time: Wednesday, October 26, 2016 08:20 - CONCLUSION: Minimal interval improvement with no evidence for vasospasm. Christian Song MD FACR Neck CTA 10/19/16 0000 Signed Impressions: Service Date/Time: Wednesday, October 19, 2016 14:19 - CONCLUSION: Negative for dissection or significant stenosis. Christian Song MD FACR Head CTA 10/19/16 0000 Signed Impressions: Service Date/Time: Wednesday, October 19, 2016 14:19 - CONCLUSION: 1. Interval development of significant vasospasm in the left MCA and SRI territories. 2. Mild vasospasm in the basilar artery.. Gume Mckeon MD Cerebral Arteriogram 10/19/16 0000 Signed Impressions: Service Date/Time: Wednesday, October 19, 2016 16:06 - CONCLUSION: 1. Vasospasm in the left MCA and SRI territories 2. Spasmolytic infusion, left internal carotid artery as above.. 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 Gume Mckeon MD Pelvis X-Ray 10/05/16109 Signed Impressions: Service Date/Time: Wednesday, October 05, 2016 01:22 - CONCLUSION: Unremarkable examination of the pelvis. Ruben Acuña Jr., MD Chest CT 10/05/16109 Signed Impressions: Service Date/Time: Wednesday, October 05, 2016 01:46 - CONCLUSION: 1. No acute intrathoracic abnormality. 2. Bibasilar atelectasis. 3. Cardiomegaly. 4. Prior granulomatous disease. Ruben Acuña Jr., MD Cervical Spine CT 10/05/16109 Signed Impressions: Service Date/Time: Wednesday, October 05, 2016 01:40 - CONCLUSION: 1. No fracture or dislocation. 2. Multilevel degenerative changes. Ruben Acuña Jr., MD Abdomen/Pelvis CT 10/05/16109 Signed Impressions: Service Date/Time: Wednesday, October 05, 2016 01:46 - CONCLUSION: 1. No acute trauma. 2. Rounded area of decreased density involving the pancreatic head. I cannot completely exclude pancreatic head mass. At some point MRI of the pancreas is suggested to further evaluate. 3. Focal area of poor enhancement involving the left kidney. This may relate to an area of parenchymal scarring. I cannot completely exclude a mass. This can be further assessed with MRI as well. Ruben Acuña Jr., MD Objective Remarks GENERAL: Well-nourished, well-developed male patient, in no apparent distress. Awake and alert. Sitting up in nurses station. SKIN: No rash. Warm and dry. HEENT: Normocephalic. Extraocular motions intact. No scleral icterus. No injection or drainage. Nose without bleeding. MMM. Airway patent. NECK: Trachea midline. Supple. CARDIOVASCULAR: RRR. No murmur appreciated. RESPIRATORY: Clear to auscultation. Breath sounds equal bilaterally. No wheezes , rales, or rhonchi. GASTROINTESTINAL: Abdomen soft, nondistended and nontender. BS x 4. MUSCULOSKELETAL: Extremities without clubbing, cyanosis, or edema. NEUROLOGICAL: Awake and alert. Oriented to self only. Moves all 4 extremities. Motor and sensory function grossly intact. Normal speech. Procedures 10/05/16 right frontal twist drill for ventriculostomy placement 10/20/16 arterial line placement 10/23/16 bedside percutaneous tracheostomy under direct bronchoscopic visualization 10/24/16 PEG tube placement at bedside Medications and IVs Current Medications Medications (Trade) Dose Ordered Sig/Nava Route Start Time Stop Time Status Last Admin (Tylenol) 650 mg Q6H PRN PO 10/05/16 02:45 01/08/17 20:27 (Zofran Inj) 4 mg Q6H PRN IV 10/05/16 02:45 11/27/16 23:26 Miscellaneous Information 1 Q361D XX 10/05/16 02:45 10/05/16 02:45 (Pravachol) 40 mg DAILY PO 10/05/16 09:00 02/16/17 09:10 (Lovenox Inj) 40 mg Q24H SQ 10/23/16 21:00 02/15/17 20:00 (Trandate) 100 mg Q8H PO 11/03/16 20:00 02/16/17 12:03 (Norvasc) 5 mg DAILY PO 11/04/16 09:00 02/16/17 09:11 (Imodium) 2 mg UNSCH PRN PO 11/09/16 09:45 11/29/16 12:57 (Lomotil Tab) 1 tab Q6H PRN PO 11/09/16 09:45 (Lactulose Liq) 30 ml QID PRN PO 12/09/16 13:45 (Protonix) 40 mg DAILY PO 12/16/16 09:00 02/16/17 09:10 (Benadryl) 50 mg Q6H PRN PO 12/20/16 17:45 02/09/17 21:05 (SEROquel) 100 mg BID@09,12 PO 01/30/17 12:00 02/16/17 12:03 (Colace) 100 mg Q12H PRN PO 02/12/17 00:15 (KCl) 40 meq DAILY PO 02/13/17 09:00 02/16/17 09:10 A/P Problem List: (1) 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 ICD Code: I60.8 Status: Acute (2) Hypertension ICD Code: I10 Status: Chronic (3) Major neurocognitive disorder due to vascular disease, without behavioral disturbance, severe ICD Code: F01.50 Status: Acute (4) Septic shock ICD Code: A41.9 Status: Resolved (5) Hydrocephalus ICD Code: G91.9 Status: Acute (6) Intracranial hemorrhage ICD Code: I62.9 Status: Acute (7) Major neurocognitive disorder as late effect of traumatic brain injury with behavioral disturbance ICD Code: S06.9X9S Status: Acute (8) Encephalopathy ICD Code: G93.40 Status: Acute (9) Sepsis ICD Code: A41.9 Status: Resolved (10) Pneumonia ICD Code: J18.9 Status: Acute (11) Protein-calorie malnutrition, mild ICD Code: E44.1 Status: Acute (12) Acute respiratory failure with hypoxia and hypercarbia ICD Code: J96.01 Status: Acute Assessment and Plan Mr. Nunez is a 51 year old male who was brought to the hospital as a trauma alert due to head injury after he fell in the bathroom and hit his head. Patient was unresponsive for approximately 15 minutes by the time ambulance services arrived. His mentation waxed and waned with GCS ranging from [address] head indicated subarachnoid hemorrhage, acute. Auditory hallucinations - Psychiatry consulted - Continues to have hallucinations but patients behavior has been much improved with Seroquel use. - Continue to monitor with ADLs Intracranial hemorrhage, status post basilar artery coiling 10/05, Status post [employer]IST shunt on 11/24/2016 Chronic encephalopathy Hydrocephalus Cortical blindness - Neurology signed off. Neuropsychology following patient ultimately for discharge placement and assistance with recommendations. Per neuropsych note, ongoing areas of concern include behavioral impulsivity, lack of insight and judgement. - Speech therapy recommends regular diet with thin liquids, Patient is eating well. PEG dc'd 01/08/17. - Cont PT/OT. - Continue Seroquel 100mg BID per psychiatry - Continue with reorientation - Encourage daily activities HTN - controlled - continue on Norvasc 5mg daily and Labetalol 100mg q8h LLQ and suprapubic abdominal pain, resolved. - UA negative, KUB unremarkable and CBC unremarkable. Acute hypoxic hypercarbic respiratory failure, resolved - Tracheostomy 10/23/16, removed, old trach site healed. - Monitor respiratory status C. difficile colitis, resolved - Completed Flagyl on 10/23 - No diarrhea reported - off Lactinex Hypokalemia, resolved - Continue scheduled KCL 40 meq PO daily. - Follow and replace as needed. - potassium levels stable DVT prophylaxis: SCDs, YOUSIF hose, Lovenox. Ambulation. GI prophylaxis: Protonix. Discussed with patient and Dr. James Discharge Planning Discharge planning ongoing. CM continues to address funding and placement issue. Pending SSI. Problem Qualifiers (1) Hypertension: Qualified Code: I10 - Essential hypertension Debra Krause Feb 16, 2017 12:30
[2017-02-16 16:00] VITALS: BP 129/78; PULSE 87; RESP 17; TEMP 97.3; O2SAT 95
[2017-02-16 20:30] VITALS: BP 120/74; PULSE 89; RESP 16; TEMP 98.3; O2SAT 96
[2017-02-16] MEDS: ENOXAPARIN SODIUM 40 MG/0.4 ML SYRINGE SQ SCH (21:37)
[2017-02-17] VITALS: BP 123/80; PULSE 78; RESP 18; TEMP 97.7; O2SAT 93
[2017-02-17] MEDS: LABETALOL HCL 100 MG TAB PO SCH ×3 (03:32→21:20)
[2017-02-17] MEDS: diphenhydrAMINE HCL 50 MG CAP PO PRN ×2 (03:32→21:21)
[2017-02-17 08:00] VITALS: BP 127/68; PULSE 81; RESP 16; TEMP 98.4; O2SAT 95
--- NOTE | 2017-02-17 08:57 | HHI.PR ---
Subjective Remarks Follow-up visit intracranial hemorrhage, basilar tip aneurysm, Status post COMMERCIAL [employer] E[employer] PARALEGAL shunt. Patient seen and examined today. Patient complaining of abdominal pain. Denies any fever or chills. Denies any N/V. (+)BM yesterday. No diarrhea. Patients states "he is doubled up and then there is the usual stuff" . Discussed with nursing staff. Patient much more agitated. Went thru one of the nurses purse and took a bunch of items out. Took four people to get the items back. Patient appeared more confused. Patient denies any chest pain. States he is always short of breath because he smoked for too long. Objective Vitals Vital Signs Date Time Temp Pulse Resp B/P Pulse Ox O2 Delivery O2 Flow Rate FiO2 02/17/17 08:00 98.4 81 16 127/68 95 02/17/17 00:00 97.7 78 18 123/80 93 02/16/17 20:30 98.3 89 16 120/74 96 02/16/17 16:00 97.3 87 17 129/78 95 02/16/17 12:09 97.8 82 17 130/80 95 I/O 02/16/17 02/16/17 02/16/17 02/17/17 02/17/17 02/17/17 07:00 15:00 23:00 07:00 15:00 23:00 Intake Total 960 ml Balance 960 ml Intake Oral 960 ml # Voids 2 5 3 # Bowel Movements 1 0 Result Diagram: 02/15/17 0845 Imaging Current Medications Medications (Trade) Dose Ordered Sig/Nava Route Start Time Stop Time Status Last Admin (Tylenol) 650 mg Q6H PRN PO 10/05/16 02:45 01/08/17 20:27 (Zofran Inj) 4 mg Q6H PRN IV 10/05/16 02:45 11/27/16 23:26 Miscellaneous Information 1 Q361D XX 10/05/16 02:45 10/05/16 02:45 (Pravachol) 40 mg DAILY PO 10/05/16 09:00 02/16/17 09:10 (Lovenox Inj) 40 mg Q24H SQ 10/23/16 21:00 02/16/17 21:37 (Trandate) 100 mg Q8H PO 11/03/16 20:00 02/17/17 03:32 (Norvasc) 5 mg DAILY PO 11/04/16 09:00 02/16/17 09:11 (Imodium) 2 mg UNSCH PRN PO 11/09/16 09:45 11/29/16 12:57 (Lomotil Tab) 1 tab Q6H PRN PO 11/09/16 09:45 (Lactulose Liq) 30 ml QID PRN PO 12/09/16 13:45 (Protonix) 40 mg DAILY PO 12/16/16 09:00 02/16/17 09:10 (Benadryl) 50 mg Q6H PRN PO 12/20/16 17:45 02/17/17 03:32 (SEROquel) 100 mg BID@,12 PO 01/30/17 12:00 02/16/17 12:03 (Colace) 100 mg Q12H PRN PO 02/12/17 00:15 (KCl) 40 meq DAILY PO 02/13/17 09:00 02/16/17 09:10 Objective Remarks GENERAL: Well-nourished, well-developed male patient, in no apparent distress. Awake and alert. Lying in hospital bed. Appears comfortable. SKIN: No rash. Warm and dry. HEENT: Normocephalic. Extraocular motions intact. No scleral icterus. No injection or drainage. Nose without bleeding. MMM. Airway patent. NECK: Trachea midline. Supple. CARDIOVASCULAR: RRR. No murmur appreciated. RESPIRATORY: Nonlabored. Clear to auscultation. Breath sounds equal bilaterally. No wheezes, rales, or rhonchi. GASTROINTESTINAL: Abdomen soft, nondistended. Tenderness elicited to palpation of RUQ. BS x 4. MUSCULOSKELETAL: Extremities without clubbing, cyanosis, or edema. NEUROLOGICAL: Awake and alert. Oriented to self only. Moves all 4 extremities. Motor and sensory function grossly intact. Normal speech. Procedures 10/05/16 right frontal twist drill for ventriculostomy placement 10/20/16 arterial line placement 10/23/16 bedside percutaneous tracheostomy under direct bronchoscopic visualization 10/24/16 PEG tube placement at bedside Medications and IVs Current Medications Medications (Trade) Dose Ordered Sig/Nava Route Start Time Stop Time Status Last Admin (Tylenol) 650 mg Q6H PRN PO 10/05/16 02:45 01/08/17 20:27 (Zofran Inj) 4 mg Q6H PRN IV 10/05/16 02:45 11/27/16 23:26 Miscellaneous Information 1 Q361D XX 10/05/16 02:45 10/05/16 02:45 (Pravachol) 40 mg DAILY PO 10/05/16 09:00 02/16/17 09:10 (Lovenox Inj) 40 mg Q24H SQ 10/23/16 21:00 02/16/17 21:37 (Trandate) 100 mg Q8H PO 11/03/16 20:00 02/17/17 03:32 (Norvasc) 5 mg DAILY PO 11/04/16 09:00 02/16/17 09:11 (Imodium) 2 mg UNSCH PRN PO 11/09/16 09:45 11/29/16 12:57 (Lomotil Tab) 1 tab Q6H PRN PO 11/09/16 09:45 (Lactulose Liq) 30 ml QID PRN PO 12/09/16 13:45 (Protonix) 40 mg DAILY PO 12/16/16 09:00 02/16/17 09:10 (Benadryl) 50 mg Q6H PRN PO 12/20/16 17:45 02/17/17 03:32 (SEROquel) 100 mg BID@09,12 PO 01/30/17 12:00 02/16/17 12:03 (Colace) 100 mg Q12H PRN PO 02/12/17 00:15 (KCl) 40 meq DAILY PO 02/13/17 09:00 02/16/17 09:10 A/P Problem List: (1) 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 ICD Code: I60.8 Status: Acute (2) Hypertension ICD Code: I10 Status: Chronic (3) Major neurocognitive disorder due to vascular disease, without behavioral disturbance, severe ICD Code: F01.50 Status: Acute (4) Septic shock ICD Code: A41.9 Status: Resolved (5) Hydrocephalus ICD Code: G91.9 Status: Acute (6) Intracranial hemorrhage ICD Code: I62.9 Status: Acute (7) Major neurocognitive disorder as late effect of traumatic brain injury with behavioral disturbance ICD Code: S06.9X9S Status: Acute (8) Encephalopathy ICD Code: G93.40 Status: Acute (9) Sepsis ICD Code: A41.9 Status: Resolved (10) Pneumonia ICD Code: J18.9 Status: Acute (11) Protein-calorie malnutrition, mild ICD Code: E44.1 Status: Acute (12) Acute respiratory failure with hypoxia and hypercarbia ICD Code: J96.01 Status: Acute Assessment and Plan Mr. Nunez is a 51 year old male who was brought to the hospital as a trauma alert due to head injury after he fell in the bathroom and hit his head. Patient was unresponsive for approximately 15 minutes by the time ambulance services arrived. His mentation waxed and waned with GCS ranging from [address] head indicated subarachnoid hemorrhage, acute. Auditory hallucinations - Psychiatry consulted - Continues to have hallucinations but patients behavior has been much improved with Seroquel use. - Continue to monitor with ADLs Increased agitation overnight, more confusion - Patient complaining of abdominal pain. Tenderness elicited to palpation of RUQ. No N/V. No diarrhea. Patient is afebrile. - CBC, CMP and lipase ordered - UA ordered - Gallbladder US Intracranial hemorrhage, status post basilar artery coiling 10/05, Status post COMMERCIAL [employer] E[employer]GAL shunt on 11/24/2016 Chronic encephalopathy Hydrocephalus Cortical blindness - Neurology signed off. Neuropsychology following patient ultimately for discharge placement and assistance with recommendations. Per neuropsych note, ongoing areas of concern include behavioral impulsivity, lack of insight and judgement. - Speech therapy recommends regular diet with thin liquids, Patient is eating well. PEG dc'd 01/08/17. - Cont PT/OT. - Continue Seroquel 100mg BID per psychiatry HTN - controlled - continue on Norvasc 5mg daily and Labetalol 100mg q8h Acute hypoxic hypercarbic respiratory failure, resolved - Tracheostomy 10/23/16, removed, old trach site healed. - Monitor respiratory status - 95% on RA C. difficile colitis, resolved - Completed Flagyl on 10/23 - No diarrhea reported - off Lactinex Hypokalemia, resolved - Continue scheduled KCL 40 meq PO daily. - Follow and replace as needed. - potassium levels stable DVT prophylaxis: SCDs, YOUSIF hose, Lovenox. Ambulation. GI prophylaxis: Protonix. Discussed with patient and Dr. James Discharge Planning Discharge planning ongoing. CM continues to address funding and placement issue. Pending SSI. Problem Qualifiers (1) Hypertension: Qualified Code: I10 - Essential hypertension Debra Krause Feb 17, 2017 08:57
[2017-02-17] MEDS: PANTOPRAZOLE SOD 40 MG DELAYED RELEASE TAB PO SCH (09:39)
[2017-02-17] MEDS: QUEtiapine FUMARATE 100 MG TAB PO SCH ×2 (09:39→12:22)
[2017-02-17] MEDS: PRAVASTATIN SOD 40 MG TAB PO SCH (09:41)
[2017-02-17] MEDS: amLODIPine BESYLATE 5 MG TAB PO SCH (09:41)
[2017-02-17] MEDS: POTASSIUM CHLORIDE 20 MEQ CONTROLLED RELEASE TAB PO SCH (09:41)
[2017-02-17 11:00] LABS: BILIRUBIN, URINE NEG (NEG); BLOOD, URINE NEG (NEG); GLUCOSE,URINE NEG (NEG); KETONE, URINE NEG (NEG); NITRITE,URINE NEG (NEG); PH, URINE 6.5 (5.0-8.5); URINE COLOR LIGHT-YELLOW (YELLW/STRAW); URINE LEUKOCYTE ESTERASE NEG (NEG)
[2017-02-17 12:00] VITALS: BP 112/59; PULSE 100; RESP 16; TEMP 98.3; O2SAT 95
[2017-02-17 16:00] VITALS: BP 108/63; PULSE 89; RESP 16; TEMP 97.8; O2SAT 93
[2017-02-17 18:41] LABS: AUTOMATED NEUTROPHIL # 2.8 TH/MM3 (1.8-7.7); BASOPHIL # 0.1 TH/MM3 (0-0.2); EOSINOPHIL # 0.4 TH/MM3 (0-0.4); EOSINOPHIL % 6.1 % (0.0-4.0); HEMATOCRIT 43.4 % (39.0-51.0); HEMOGLOBIN 14.4 GM/DL (13.0-17.0); LYMPH % 35.2 % (9.0-44.0); LYMPHOCYTE # 2.1 TH/MM3 (1.0-4.8); MEAN CORPUSCULAR HEMOGLOBIN 29.2 PG (27.0-34.0); MEAN CORPUSCULAR HGB CONC 33.2 % (32.0-36.0); MEAN PLATELET VOLUME 9.4 FL (7.0-11.0); MONO % 9.5 % (0.0-8.0); MONOCYTE # 0.6 TH/MM3 (0-0.9); NEUT % 48.2 % (16.0-70.0); PLATELET COUNT 173 TH/MM3 (150-450); RED BLOOD COUNT 4.93 MIL/MM3 (4.50-5.90); RED CELL DISTRIBUTION WIDTH 14.5 % (11.6-17.2); WHITE BLOOD COUNT 5.8 TH/MM3 (4.0-11.0)
[2017-02-17 18:57] LABS: ALBUMIN 3.6 GM/DL (3.4-5.0); AST (GOT) 11 U/L (15-37); BICARBONATE 24.8 MEQ/L (21.0-32.0); BLOOD UREA NITROGEN 18 MG/DL (7-18); CALCIUM 8.5 MG/DL (8.5-10.1); CHLORIDE 110 MEQ/L (98-107); CREATININE 1.17 MG/DL (0.60-1.30); GLOMERULAR FILTRATION RATE 65 ML/MIN (>89); GLUCOSE,RANDOM 81 MG/DL (74-106); LIPASE 85 U/L (73-393); SODIUM (NA) 141 MEQ/L (136-145)
[2017-02-17 18:58] LABS: ALT (GPT) 24 U/L (12-78)
[2017-02-17 19:00] LABS: ALKALINE PHOSPHATASE 58 U/L (45-117); TOTAL BILIRUBIN ADULT 0.4 MG/DL (0.2-1.0); TOTAL PROTEIN 7.1 GM/DL (6.4-8.2)
[2017-02-17 20:00] VITALS: BP 105/63; PULSE 103; RESP 18; TEMP 98.4; O2SAT 93
--- NOTE | 2017-02-17 20:28 | RADRPT ---
EXAM DATE/TIME: 02/17/2017 17:45 [facility] COMPARISON: No previous studies available for comparison. INDICATIONS : Right upper quadrant pain. MEDICAL HISTORY : Pancreatitis. Cardiac disorders. Hypertension. CVA. Intracranial hemorrhage. SURGICAL HISTORY : ACQUISITIONS ANALYST shunt. Ventriculostomy clamp. Ventriculostomy drain. ENCOUNTER: Subsequent ACUITY: 1 day PAIN SCORE: 2/10 LOCATION: Right upper quadrant MEASUREMENTS: LIVER: 18.3 cm length COMMON DUCT: 4 mm RIGHT KIDNEY: 9.9 x 4.6 x 5.6 cm FINDINGS: LIVER: Mildly enlarged and possibly mildly edematous. No focal hepatic lesion seen. No biliary distention. COMMON DUCT: No intraluminal mass or stone visualized. GALLBLADDER: Small sludge suspected. No measurable stones. No gallbladder wall thickening or pericholecystic fluid . Negative sonographic Dial's sign. PANCREAS: The visualized portions are within normal limits. RIGHT KIDNEY: No evidence of hydronephrosis, stone, or mass. CONCLUSION: Mildly enlarged liver and small amount of gallbladder sludge. Tim Hammonds MD on February 17, 2017 at 20:24 Board Certified Radiologist. This report was verified electronically.
--- NOTE | 2017-02-17 20:28 | RADRPT ---
EXAM DATE/TIME: 02/17/2017 17:45 [facility] COMPARISON: No previous studies available for comparison. INDICATIONS : Right upper quadrant pain. MEDICAL HISTORY : Pancreatitis. Cardiac disorders. Hypertension. CVA. Intracranial hemorrhage. SURGICAL HISTORY : BANK CREDIT CARD COLLECTION CLERK shunt. Ventriculostomy clamp. Ventriculostomy drain. ENCOUNTER: Subsequent ACUITY: 1 day PAIN SCORE: 2/10 LOCATION: Right upper quadrant MEASUREMENTS: LIVER: 18.3 cm length COMMON DUCT: 4 mm RIGHT KIDNEY: 9.9 x 4.6 x 5.6 cm FINDINGS: LIVER: Mildly enlarged and possibly mildly edematous. No focal hepatic lesion seen. No biliary distention. COMMON DUCT: No intraluminal mass or stone visualized. GALLBLADDER: Small sludge suspected. No measurable stones. No gallbladder wall thickening or pericholecystic fluid . Negative sonographic Dial's sign. PANCREAS: The visualized portions are within normal limits. RIGHT KIDNEY: No evidence of hydronephrosis, stone, or mass. CONCLUSION: Mildly enlarged liver and small amount of gallbladder sludge. Tim Hammonds MD on February 17, 2017 at 20:24 Board Certified Radiologist. This report was verified electronically.
--- NOTE | 2017-02-17 20:28 | RADRPT ---
EXAM DATE/TIME: 02/17/2017 17:45 [facility] COMPARISON: No previous studies available for comparison. INDICATIONS : Right upper quadrant pain. MEDICAL HISTORY : Pancreatitis. Cardiac disorders. Hypertension. CVA. Intracranial hemorrhage. SURGICAL HISTORY : SHOP CLERK shunt. Ventriculostomy clamp. Ventriculostomy drain. ENCOUNTER: Subsequent ACUITY: 1 day PAIN SCORE: 2/10 LOCATION: Right upper quadrant MEASUREMENTS: LIVER: 18.3 cm length COMMON DUCT: 4 mm RIGHT KIDNEY: 9.9 x 4.6 x 5.6 cm FINDINGS: LIVER: Mildly enlarged and possibly mildly edematous. No focal hepatic lesion seen. No biliary distention. COMMON DUCT: No intraluminal mass or stone visualized. GALLBLADDER: Small sludge suspected. No measurable stones. No gallbladder wall thickening or pericholecystic fluid . Negative sonographic Dial's sign. PANCREAS: The visualized portions are within normal limits. RIGHT KIDNEY: No evidence of hydronephrosis, stone, or mass. CONCLUSION: Mildly enlarged liver and small amount of gallbladder sludge. Tim Hammonds MD on February 17, 2017 at 20:24 Board Certified Radiologist. This report was verified electronically.
[2017-02-17] MEDS: ENOXAPARIN SODIUM 40 MG/0.4 ML SYRINGE SQ SCH (21:20)
[2017-02-17] MEDS: ACETAMINOPHEN 325 MG TAB PO PRN (21:21)
[2017-02-18] VITALS: BP 127/72; PULSE 87; RESP 18; TEMP 97; O2SAT 98
[2017-02-18 05:01] VITALS: BP 132/74; PULSE 83; RESP 17; TEMP 98.1; O2SAT 96
[2017-02-18] MEDS: LABETALOL HCL 100 MG TAB PO SCH ×3 (05:04→21:51)
[2017-02-18] MEDS: PANTOPRAZOLE SOD 40 MG DELAYED RELEASE TAB PO SCH (07:40)
[2017-02-18] MEDS: PRAVASTATIN SOD 40 MG TAB PO SCH (07:40)
[2017-02-18] MEDS: QUEtiapine FUMARATE 100 MG TAB PO SCH ×2 (07:40→12:36)
[2017-02-18] MEDS: amLODIPine BESYLATE 5 MG TAB PO SCH (07:41)
[2017-02-18] MEDS: POTASSIUM CHLORIDE 20 MEQ CONTROLLED RELEASE TAB PO SCH (07:41)
[2017-02-18 07:57] VITALS: BP 117/69; PULSE 81; RESP 18; TEMP 98.4; O2SAT 96
--- NOTE | 2017-02-18 09:20 | HHI.PR ---
Subjective Remarks Follow-up visit intracranial hemorrhage, basilar tip aneurysm, Status post GEOTHERMAL FIELD TECHNICIAN shunt. Patient seen and examined today. Patient complaining his "lungs hurt" . Reports he always is short of breath. Also complaining of left anterior chest pain and right sided abdominal pain. Discussed with nursing staff. No issues over night. Much less agitated. Patient denies any dizziness or headache. Denies any N/V or abdominal pain. (+)BM 02/16. Objective Vitals Vital Signs Date Time Temp Pulse Resp B/P Pulse Ox O2 Delivery O2 Flow Rate FiO2 02/18/17 07:57 98.4 81 18 117/69 96 02/18/17 05:01 98.1 83 17 132/74 96 02/18/17 00:00 97.0 87 18 127/72 98 02/17/17 20:00 98.4 103 18 105/63 93 02/17/17 16:00 97.8 89 16 108/63 93 02/17/17 12:00 98.3 100 16 112/59 95 I/O 02/17/17 02/17/17 02/17/17 02/18/17 02/18/17 02/18/17 07:00 15:00 23:00 07:00 15:00 23:00 Intake Total 480 ml Balance 480 ml Intake Oral 480 ml # Voids 5 3 # Bowel Movements 0 Result Diagram: 02/17/17 1804 02/17/17 1804 Imaging Last Impressions Gall Bladder Ultrasound 02/17/17 0000 Signed Impressions: Service Date/Time: Friday, February 17, 2017 17:45 - CONCLUSION: Mildly enlarged liver and small amount of gallbladder sludge. Tim Hammonds MD Abdomen X-Ray 01/20/17 0000 Signed Impressions: Service Date/Time: Friday, January 20, 2017 10:46 - CONCLUSION: No acute abnormality is identified. Tim Montgomery MD Head CT 12/09/16 0000 Signed Impressions: Service Date/Time: Friday, December 09, 2016 17:36 - CONCLUSION: 1. Right ventriculostomy tube remains in place with decrease in ventricular size since November 24. There is some encephalomalacia around the shunt and a probable small infarct in the left basal ganglia. No new hemorrhage or shift. Tip Harris MD Chest X-Ray 11/01/16 0600 Signed Impressions: Service Date/Time: Tuesday, November 01, 2016 04:37 - CONCLUSION: 1. No acute cardiopulmonary disease. Trevin De León MD Transcranial Doppler Study Complete 10/26/16 0700 Signed Impressions: Service Date/Time: Wednesday, October 26, 2016 08:20 - CONCLUSION: Minimal interval improvement with no evidence for vasospasm. Christian Song MD FACR Neck CTA 10/19/16 0000 Signed Impressions: Service Date/Time: Wednesday, October 19, 2016 14:19 - CONCLUSION: Negative for dissection or significant stenosis. Christian Song MD FACR Head CTA 10/19/16 0000 Signed Impressions: Service Date/Time: Wednesday, October 19, 2016 14:19 - CONCLUSION: 1. Interval development of significant vasospasm in the left MCA and SRI territories. 2. Mild vasospasm in the basilar artery.. Gume Mckeon MD Cerebral Arteriogram 10/19/16 0000 Signed Impressions: Service Date/Time: Wednesday, October 19, 2016 16:06 - CONCLUSION: 1. Vasospasm in the left MCA and SRI territories 2. Spasmolytic infusion, left internal carotid artery as above.. 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 Gume Mckeon MD Pelvis X-Ray 10/05/16 011 Signed Impressions: Service Date/Time: Wednesday, October 05, 2016 01:22 - CONCLUSION: Unremarkable examination of the pelvis. Ruben Acuña Jr., MD Chest CT 10/05/16109 Signed Impressions: Service Date/Time: Wednesday, October 05, 2016 01:46 - CONCLUSION: 1. No acute intrathoracic abnormality. 2. Bibasilar atelectasis. 3. Cardiomegaly. 4. Prior granulomatous disease. Ruben Acuña Jr., MD Cervical Spine CT 10/05/16109 Signed Impressions: Service Date/Time: Wednesday, October 05, 2016 01:40 - CONCLUSION: 1. No fracture or dislocation. 2. Multilevel degenerative changes. Ruben Acuña Jr., MD Abdomen/Pelvis CT 10/05/16109 Signed Impressions: Service Date/Time: Wednesday, October 05, 2016 01:46 - CONCLUSION: 1. No acute trauma. 2. Rounded area of decreased density involving the pancreatic head. I cannot completely exclude pancreatic head mass. At some point MRI of the pancreas is suggested to further evaluate. 3. Focal area of poor enhancement involving the left kidney. This may relate to an area of parenchymal scarring. I cannot completely exclude a mass. This can be further assessed with MRI as well. Ruben Acuña Jr., MD Objective Remarks GENERAL: Well-nourished, well-developed male patient, in no apparent distress. Awake and alert. Sitting up at the nurses station. Appears comfortable. SKIN: No rash. Warm and dry. HEENT: Normocephalic. Extraocular motions intact. No scleral icterus. No injection or drainage. Nose without bleeding. MMM. Airway patent. NECK: Trachea midline. Supple. CARDIOVASCULAR: RRR. No murmur appreciated. No tenderness to palpation of chest wall. RESPIRATORY: Nonlabored. Clear to auscultation. Breath sounds equal bilaterally. No wheezes, rales, or rhonchi. GASTROINTESTINAL: Abdomen soft, nondistended. Tenderness elicited to palpation of RUQ. BS x 4. MUSCULOSKELETAL: Extremities without clubbing, cyanosis, or edema. NEUROLOGICAL: Awake and alert. Oriented to self only. Moves all 4 extremities. Motor and sensory function grossly intact. Normal speech. Procedures 10/05/16 right frontal twist drill for ventriculostomy placement 10/20/16 arterial line placement 10/23/16 bedside percutaneous tracheostomy under direct bronchoscopic visualization 10/24/16 PEG tube placement at bedside Medications and IVs Current Medications Medications (Trade) Dose Ordered Sig/Nava Route Start Time Stop Time Status Last Admin (Tylenol) 650 mg Q6H PRN PO 10/05/16 02:45 02/17/17 21:21 (Zofran Inj) 4 mg Q6H PRN IV 10/05/16 02:45 11/27/16 23:26 Miscellaneous Information 1 Q361D XX 10/05/16 02:45 10/05/16 02:45 (Pravachol) 40 mg DAILY PO 10/05/16 09:00 02/18/17 07:40 (Lovenox Inj) 40 mg Q24H SQ 10/23/16 21:00 8/18/17 21:20 (Trandate) 100 mg Q8H PO 11/03/16 20:00 02/18/17 05:04 (Norvasc) 5 mg DAILY PO 11/04/16 09:00 02/18/17 07:41 (Imodium) 2 mg UNSCH PRN PO 11/09/16 09:45 11/29/16 12:57 (Lomotil Tab) 1 tab Q6H PRN PO 11/09/16 09:45 (Lactulose Liq) 30 ml QID PRN PO 12/09/16 13:45 (Protonix) 40 mg DAILY PO 12/16/16 09:00 02/18/17 07:40 (Benadryl) 50 mg Q6H PRN PO 12/20/16 17:45 02/17/17 21:21 (SEROquel) 100 mg BID@09,12 PO 01/30/17 12:00 02/18/17 07:40 (Colace) 100 mg Q12H PRN PO 02/12/17 00:15 (KCl) 40 meq DAILY PO 02/13/17 09:00 02/18/17 07:41 A/P Problem List: (1) 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 ICD Code: I60.8 Status: Acute (2) Hypertension ICD Code: I10 Status: Chronic (3) Major neurocognitive disorder due to vascular disease, without behavioral disturbance, severe ICD Code: F01.50 Status: Acute (4) Septic shock ICD Code: A41.9 Status: Resolved (5) Hydrocephalus ICD Code: G91.9 Status: Acute (6) Intracranial hemorrhage ICD Code: I62.9 Status: Acute (7) Major neurocognitive disorder as late effect of traumatic brain injury with behavioral disturbance ICD Code: S06.9X9S Status: Acute (8) Encephalopathy ICD Code: G93.40 Status: Acute (9) Sepsis ICD Code: A41.9 Status: Resolved (10) Pneumonia ICD Code: J18.9 Status: Acute (11) Protein-calorie malnutrition, mild ICD Code: E44.1 Status: Acute (12) Acute respiratory failure with hypoxia and hypercarbia ICD Code: J96.01 Status: Acute Assessment and Plan Mr. Nunez is a 51 year old male who was brought to the hospital as a trauma alert due to head injury after he fell in the bathroom and hit his head. Patient was unresponsive for approximately 15 minutes by the time ambulance services arrived. His mentation waxed and waned with GCS ranging from [address] head indicated subarachnoid hemorrhage, acute. Auditory hallucinations - Psychiatry consulted - Continues to have hallucinations but patients behavior has been much improved with Seroquel use. - Continue to monitor with ADLs Increased agitation, more confusion - improved Abdominal pain - Patient still complaining of RUQ abdominal pain. Tenderness elicited to palpation of RUQ. No N/V. No diarrhea. Patient is afebrile. Gallbladder US personally reviewed and showed only mildly enlarged liver and small amount of gallbladder sludge. Labs unremarkable. UA negative. - no BM x 2 days. Begin scheduled Tonie Colace BID. - KUB ordered C/O left anterior chest pain, chronic SOB and "lungs hurting" - troponin ordered - EKG - CXR - monitor Intracranial hemorrhage, status post basilar artery coiling 10/05, Status post GEOTHERMAL FIELD TECHNICIAN shunt on 11/24/2016 Chronic encephalopathy Hydrocephalus Cortical blindness - Neurology signed off. Neuropsychology following patient ultimately for discharge placement and assistance with recommendations. Per neuropsych note, ongoing areas of concern include behavioral impulsivity, lack of insight and judgement. - Speech therapy recommends regular diet with thin liquids, Patient is eating well. PEG dc'd 01/08/17. - Cont PT/OT. - Continue Seroquel 100mg BID per psychiatry HTN - controlled - continue on Norvasc 5mg daily and Labetalol 100mg q8h Acute hypoxic hypercarbic respiratory failure, resolved - Tracheostomy 10/23/16, removed, old trach site healed. - Monitor respiratory status - 95% on RA C. difficile colitis, resolved - Completed Flagyl on 10/23 - No diarrhea reported - off Lactinex Hypokalemia, resolved - Continue scheduled KCL 40 meq PO daily. - Follow and replace as needed. - potassium levels stable DVT prophylaxis: SCDs, YOUSIF hose, Lovenox. Ambulation. GI prophylaxis: Protonix. Discussed with patient, nursing staff and Dr. James Discharge Planning Discharge planning ongoing. CM continues to address funding and placement issue. Pending SSI. Problem Qualifiers (1) Hypertension: Qualified Code: I10 - Essential hypertension Debra Krause Feb 18, 2017 09:20
--- NOTE | 2017-02-18 11:36 | RADRPT ---
EXAM DATE/TIME: 02/18/2017 10:51 [facility] COMPARISON: CHEST SINGLE AP, November 01, 2016, 4:37. INDICATIONS : Chest pain. MEDICAL HISTORY : Hypertension. Pancreatitis. TIA. Subarachnoid hemorrhage. SURGICAL HISTORY : Ventriculostomy clamp. Ventriculostomy drain. ENCOUNTER: Initial ACUITY: 1 day PAIN SCORE: Non-responsive. LOCATION: chest FINDINGS: A single view of the chest demonstrates diminished lung volumes without evidence of mass, infiltrate or effusion. The cardiomediastinal contours are unremarkable. Osseous structures are intact. Right- sided FIELD CROP TECHNICAL OFFICER shunt noted. CONCLUSION: Diminished lung volumes. No infiltrate. Tyrese Raymond MD on February 18, 2017 at 11:34 Board Certified Radiologist. This report was verified electronically.
--- NOTE | 2017-02-18 11:36 | RADRPT ---
EXAM DATE/TIME: 02/18/2017 10:51 [facility] COMPARISON: CHEST SINGLE AP, November 01, 2016, 4:37. INDICATIONS : Chest pain. MEDICAL HISTORY : Hypertension. Pancreatitis. TIA. Subarachnoid hemorrhage. SURGICAL HISTORY : Ventriculostomy clamp. Ventriculostomy drain. ENCOUNTER: Initial ACUITY: 1 day PAIN SCORE: Non-responsive. LOCATION: chest FINDINGS: A single view of the chest demonstrates diminished lung volumes without evidence of mass, infiltrate or effusion. The cardiomediastinal contours are unremarkable. Osseous structures are intact. Right- sided FORENSIC PSYCHIATRIST shunt noted. CONCLUSION: Diminished lung volumes. No infiltrate. Tyrese Raymond MD on February 18, 2017 at 11:34 Board Certified Radiologist. This report was verified electronically.
--- NOTE | 2017-02-18 11:36 | RADRPT ---
EXAM DATE/TIME: 02/18/2017 10:51 [facility] COMPARISON: CHEST SINGLE AP, November 01, 2016, 4:37. INDICATIONS : Chest pain. MEDICAL HISTORY : Hypertension. Pancreatitis. TIA. Subarachnoid hemorrhage. SURGICAL HISTORY : Ventriculostomy clamp. Ventriculostomy drain. ENCOUNTER: Initial ACUITY: 1 day PAIN SCORE: Non-responsive. LOCATION: chest FINDINGS: A single view of the chest demonstrates diminished lung volumes without evidence of mass, infiltrate or effusion. The cardiomediastinal contours are unremarkable. Osseous structures are intact. Right- sided SHIRT SEWER shunt noted. CONCLUSION: Diminished lung volumes. No infiltrate. Tyrese Raymond MD on February 18, 2017 at 11:34 Board Certified Radiologist. This report was verified electronically.
--- NOTE | 2017-02-18 11:38 | RADRPT ---
EXAM DATE/TIME: 02/18/2017 10:56 CORRECTION Corrected on: February 19, 2017; [facility] COMPARISON: ABDOMEN KUB ONLY, January 20, 2017, 10:46. INDICATIONS : Abdominal pain. MEDICAL HISTORY : None. SURGICAL HISTORY : None. ENCOUNTER: Subsequent ACUITY: 1 week PAIN SCORE: 4/10 LOCATION: Abdomen FINDINGS: Supine view of the abdomen was performed. The abdominal bowel gas pattern is normal. No abnormal ma sses, calcifications, or organomegaly is seen. The osseous structures are unremarkable. Presumed phl eboliths in the pelvis. SPECIAL EDUCATION [employer]ERGARTEN TEACHER shunt catheter seen on the right. CONCLUSION: Unremarkable abdomen. Tyrese Raymond MD on February 19, 2017 at 15:02 Board Certified Radiologist. This report was verified electronically.
--- NOTE | 2017-02-18 11:38 | RADRPT ---
EXAM DATE/TIME: 02/18/2017 10:56 CORRECTION Corrected on: February 19, 2017; [facility] COMPARISON: ABDOMEN KUB ONLY, January 20, 2017, 10:46. INDICATIONS : Abdominal pain. MEDICAL HISTORY : None. SURGICAL HISTORY : None. ENCOUNTER: Subsequent ACUITY: 1 week PAIN SCORE: 4/10 LOCATION: Abdomen FINDINGS: Supine view of the abdomen was performed. The abdominal bowel gas pattern is normal. No abnormal ma sses, calcifications, or organomegaly is seen. The osseous structures are unremarkable. Presumed phl eboliths in the pelvis. PORTFOLIO ADMINISTRATOR shunt catheter seen on the right. CONCLUSION: Unremarkable abdomen. Tyrese Raymond MD on February 19, 2017 at 15:02 Board Certified Radiologist. This report was verified electronically.
--- NOTE | 2017-02-18 11:38 | RADRPT ---
EXAM DATE/TIME: 02/18/2017 10:56 CORRECTION Corrected on: February 19, 2017; [facility] COMPARISON: ABDOMEN KUB ONLY, January 20, 2017, 10:46. INDICATIONS : Abdominal pain. MEDICAL HISTORY : None. SURGICAL HISTORY : None. ENCOUNTER: Subsequent ACUITY: 1 week PAIN SCORE: 4/10 LOCATION: Abdomen FINDINGS: Supine view of the abdomen was performed. The abdominal bowel gas pattern is normal. No abnormal ma sses, calcifications, or organomegaly is seen. The osseous structures are unremarkable. Presumed phl eboliths in the pelvis. HEAVY COIL WINDER shunt catheter seen on the right. CONCLUSION: Unremarkable abdomen. Tyrese Raymond MD on February 19, 2017 at 15:02 Board Certified Radiologist. This report was verified electronically.
[2017-02-18 12:29] VITALS: BP 93/55; PULSE 71; RESP 20; TEMP 97.7; O2SAT 93
[2017-02-18] MEDS: DOCUSATE SODIUM 50 MG/SENNA 8.6 MG TAB PO SCH ×3 (15:30→21:51)
[2017-02-18 16:00] VITALS: BP 114/70; PULSE 90; RESP 18; TEMP 97.3; O2SAT 95
[2017-02-18 19:53] VITALS: BP 126/72; PULSE 79; RESP 20; TEMP 97.5; O2SAT 96
[2017-02-18] MEDS: ENOXAPARIN SODIUM 40 MG/0.4 ML SYRINGE SQ SCH (21:51)
[2017-02-19] VITALS: BP 122/73; PULSE 79; RESP 20; TEMP 97.5; O2SAT 93
[2017-02-19 04:00] VITALS: BP 132/82; PULSE 80; RESP 20; TEMP 97.5; O2SAT 97
[2017-02-19] MEDS: LABETALOL HCL 100 MG TAB PO SCH ×3 (05:40→21:49)
[2017-02-19 07:46] VITALS: BP 130/83; PULSE 88; RESP 18; TEMP 98; O2SAT 93
[2017-02-19] MEDS: DOCUSATE SODIUM 50 MG/SENNA 8.6 MG TAB PO SCH ×2 (09:20→21:00)
[2017-02-19] MEDS: PRAVASTATIN SOD 40 MG TAB PO SCH (09:20)
[2017-02-19] MEDS: PANTOPRAZOLE SOD 40 MG DELAYED RELEASE TAB PO SCH (09:20)
[2017-02-19] MEDS: QUEtiapine FUMARATE 100 MG TAB PO SCH ×2 (09:20→13:44)
[2017-02-19] MEDS: POTASSIUM CHLORIDE 20 MEQ CONTROLLED RELEASE TAB PO SCH (09:20)
[2017-02-19] MEDS: amLODIPine BESYLATE 5 MG TAB PO SCH (09:20)
[2017-02-19 13:45] VITALS: BP 130/87; PULSE 97; RESP 18; TEMP 98.8; O2SAT 94
--- NOTE | 2017-02-19 14:54 | HHI.PR ---
Subjective Remarks Follow-up visit intracranial hemorrhage, basilar tip aneurysm, Status post LINK TRAINER MECHANIC shunt. Patient seen and examined today. Patient reports he is doing well today. States he is having a good day. He denies any complaints of pain today. He denies any fever or chills. No chest pain or SOB. No N/V or abdominal pain. Denies any diarrhea or voiding difficulties. Objective Vitals Vital Signs Date Time Temp Pulse Resp B/P (MAP) Pulse Ox O2 Delivery O2 Flow Rate FiO2 02/19/17 13:45 98.8 97 18 130/87 (101) 94 02/19/17 07:46 98.0 88 18 130/83 (99) 93 02/19/17 04:00 97.5 80 20 132/82 (99) 97 02/19/17 00:00 97.5 79 20 122/73 (89) 93 02/18/17 19:53 97.5 79 20 126/72 (90) 96 02/18/17 16:00 97.3 90 18 114/70 (85) 95 I/O 02/18/17 02/18/17 02/18/17 02/19/17 02/19/17 02/19/17 07:00 15:00 23:00 07:00 15:00 23:00 Intake Total 960 ml 200 ml 960 ml Output Total 400 ml Balance 960 ml -200 ml 960 ml Intake Oral 960 ml 200 ml 960 ml Output Urine Total 400 ml # Voids 3 3 3 # Bowel Movements 1 0 0 Result Diagram: 02/17/17 1804 02/17/17 1804 Imaging Last Impressions Chest X-Ray 02/18/17 0000 Signed Impressions: Service Date/Time: Saturday, February 18, 2017 10:51 - CONCLUSION: Diminished lung volumes. No infiltrate. Tyrese Raymond MD Gall Bladder Ultrasound 02/17/17 0000 Signed Impressions: Service Date/Time: Friday, February 17, 2017 17:45 - CONCLUSION: Mildly enlarged liver and small amount of gallbladder sludge. Tim Hammonds MD Abdomen X-Ray 01/20/17 0000 Signed Impressions: Service Date/Time: Friday, January 20, 2017 10:46 - CONCLUSION: No acute abnormality is identified. Tim Montgomery MD Head CT 12/09/16 0000 Signed Impressions: Service Date/Time: Friday, December 09, 2016 17:36 - CONCLUSION: 1. Right ventriculostomy tube remains in place with decrease in ventricular size since November 24. There is some encephalomalacia around the shunt and a probable small infarct in the left basal ganglia. No new hemorrhage or shift. Tip Harris MD Transcranial Doppler Study Complete 10/26/16 0700 Signed Impressions: Service Date/Time: Wednesday, October 26, 2016 08:20 - CONCLUSION: Minimal interval improvement with no evidence for vasospasm. Christian Song MD FACR Neck CTA 10/19/16 0000 Signed Impressions: Service Date/Time: Wednesday, October 19, 2016 14:19 - CONCLUSION: Negative for dissection or significant stenosis. Christian Song MD FACR Head CTA 10/19/16 0000 Signed Impressions: Service Date/Time: Wednesday, October 19, 2016 14:19 - CONCLUSION: 1. Interval development of significant vasospasm in the left MCA and SRI territories. 2. Mild vasospasm in the basilar artery.. Gume Mckeon MD Cerebral Arteriogram 10/19/16 0000 Signed Impressions: Service Date/Time: Wednesday, October 19, 2016 16:06 - CONCLUSION: 1. Vasospasm in the left MCA and SRI territories 2. Spasmolytic infusion, left internal carotid artery as above.. 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 Gume Mckeon MD Pelvis X-Ray 10/05/16109 Signed Impressions: Service Date/Time: Wednesday, October 05, 2016 01:22 - CONCLUSION: Unremarkable examination of the pelvis. Ruben Acuña Jr., MD Chest CT 10/05/16109 Signed Impressions: Service Date/Time: Wednesday, October 05, 2016 01:46 - CONCLUSION: 1. No acute intrathoracic abnormality. 2. Bibasilar atelectasis. 3. Cardiomegaly. 4. Prior granulomatous disease. Ruben Acuña Jr., MD Cervical Spine CT 10/05/16109 Signed Impressions: Service Date/Time: Wednesday, October 05, 2016 01:40 - CONCLUSION: 1. No fracture or dislocation. 2. Multilevel degenerative changes. Ruben Acuña Jr., MD Abdomen/Pelvis CT 10/05/16 0110 Signed Impressions: Service Date/Time: Wednesday, October 05, 2016 01:46 - CONCLUSION: 1. No acute trauma. 2. Rounded area of decreased density involving the pancreatic head. I cannot completely exclude pancreatic head mass. At some point MRI of the pancreas is suggested to further evaluate. 3. Focal area of poor enhancement involving the left kidney. This may relate to an area of parenchymal scarring. I cannot completely exclude a mass. This can be further assessed with MRI as well. Ruben Acuña Jr., MD Objective Remarks GENERAL: Well-nourished, well-developed male patient, in no apparent distress. Awake and alert. Lying in hospital bed. Appears comfortable. SKIN: No rash. Warm and dry. HEENT: Normocephalic. Extraocular motions intact. No scleral icterus. No injection or drainage. Nose without bleeding. MMM. Airway patent. NECK: Trachea midline. Supple. CARDIOVASCULAR: RRR. No murmur appreciated. No tenderness to palpation of chest wall. RESPIRATORY: Nonlabored. Clear to auscultation. Breath sounds equal bilaterally. No wheezes, rales, or rhonchi. GASTROINTESTINAL: Abdomen soft, nondistended and nontender. BS x 4. MUSCULOSKELETAL: Extremities without clubbing, cyanosis, or edema. NEUROLOGICAL: Awake and alert. Oriented to self only. Moves all 4 extremities. Motor and sensory function grossly intact. Normal speech. Procedures 10/05/16 right frontal twist drill for ventriculostomy placement 10/20/16 arterial line placement 10/23/16 bedside percutaneous tracheostomy under direct bronchoscopic visualization 10/24/16 PEG tube placement at bedside Medications and IVs Current Medications Medications (Trade) Dose Ordered Sig/Nava Route Start Time Stop Time Status Last Admin (Tylenol) 650 mg Q6H PRN PO 10/05/16 02:45 02/17/17 21:21 (Zofran Inj) 4 mg Q6H PRN IV 10/05/16 02:45 11/27/16 23:26 Miscellaneous Information 1 Q361D XX 10/05/16 02:45 10/05/16 02:45 (Pravachol) 40 mg DAILY PO 10/05/16 09:00 02/19/17 09:20 (Lovenox Inj) 40 mg Q24H SQ 10/23/16 21:00 Future hold 02/18/17 21:51 (Trandate) 100 mg Q8H PO 11/03/16 20:00 02/19/17 13:44 (Norvasc) 5 mg DAILY PO 11/04/16 09:00 02/19/17 09:20 (Imodium) 2 mg UNSCH PRN PO 11/09/16 09:45 11/29/16 12:57 (Lomotil Tab) 1 tab Q6H PRN PO 11/09/16 09:45 (Lactulose Liq) 30 ml QID PRN PO 12/09/16 13:45 (Protonix) 40 mg DAILY PO 12/16/16 09:00 02/19/17 09:20 (Benadryl) 50 mg Q6H PRN PO 12/20/16 17:45 02/17/17 21:21 (SEROquel) 100 mg BID@09,12 PO 01/30/17 12:00 02/19/17 13:44 (Colace) 100 mg Q12H PRN PO 02/12/17 00:15 (Duoneb Neb) 1 ampule Q4HR NEB PRN INH 02/12/17 12:00 (KCl) 40 meq DAILY PO 02/13/17 09:00 02/19/17 09:20 (Tonie-Colace) 1 tab BID PO 02/18/17 09:30 02/18/17 15:30 A/P Problem List: (1) 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 ICD Code: I60.8 - Other nontraumatic subarachnoid hemorrhage Status: Acute (2) Hypertension ICD Code: I10 - Essential (primary) hypertension Status: Chronic (3) Major neurocognitive disorder due to vascular disease, without behavioral disturbance, severe ICD Code: F01.50 - Vascular dementia without behavioral disturbance Status: Acute (4) Septic shock ICD Code: A41.9 - Sepsis, unspecified organism; R65.21 - Severe sepsis with septic shock Status: Resolved (5) Hydrocephalus ICD Code: G91.9 - Hydrocephalus, unspecified Status: Acute (6) Intracranial hemorrhage ICD Code: I62.9 - Nontraumatic intracranial hemorrhage, unspecified Status: Acute (7) Major neurocognitive disorder as late effect of traumatic brain injury with behavioral disturbance ICD Code: S06.9X9S - Unspecified intracranial injury with loss of consciousness of unspecified duration, sequela; F02.81 - Dementia in other diseases classified elsewhere with behavioral disturbance Status: Acute (8) Encephalopathy ICD Code: G93.40 - Encephalopathy, unspecified Status: Acute (9) Sepsis ICD Code: A41.9 - Sepsis, unspecified organism Status: Resolved (10) Pneumonia ICD Code: J18.9 - Pneumonia, unspecified organism Status: Acute (11) Protein-calorie malnutrition, mild ICD Code: E44.1 - Mild protein-calorie malnutrition Status: Acute (12) Acute respiratory failure with hypoxia and hypercarbia ICD Code: J96.01 - Acute respiratory failure with hypoxia; J96.02 - Acute respiratory failure with hypercapnia Status: Acute Assessment and Plan Mr. Nunez is a 51 year old male who was brought to the hospital as a trauma alert due to head injury after he fell in the bathroom and hit his head. Patient was unresponsive for approximately 15 minutes by the time ambulance services arrived. His mentation waxed and waned with GCS ranging from [address] head indicated subarachnoid hemorrhage, acute. Auditory hallucinations - Psychiatry consulted - Continues to have hallucinations but patients behavior has been much improved with Seroquel use. - Continue to monitor with ADLs Increased agitation, more confusion - improved - Continue on Seroquel Abdominal pain - resolved - (+)BM yesterday - Continue scheduled Tonie Colace BID. - KUB personally reviewed and unremarkable. C/O left anterior chest pain, chronic SOB and "lungs hurting" - resolved - troponin negative - EKG personally reviewed, normal sinus rhythm. - CXR personally reviewed, diminished lung volumes otherwise unremarkable. Intracranial hemorrhage, status post basilar artery coiling 10/05, Status post LINK TRAINER MECHANIC shunt on 11/24/2016 Chronic encephalopathy Hydrocephalus Cortical blindness - Neurology signed off. Neuropsychology following patient ultimately for discharge placement and assistance with recommendations. Per neuropsych note, ongoing areas of concern include behavioral impulsivity, lack of insight and judgement. - Speech therapy recommends regular diet with thin liquids, Patient is eating well. PEG dc'd 01/08/17. - Cont PT/OT. - Continue Seroquel 100mg BID per psychiatry HTN - controlled - continue on Norvasc 5mg daily and Labetalol 100mg q8h Acute hypoxic hypercarbic respiratory failure, resolved - Tracheostomy 10/23/16, removed, old trach site healed. - Monitor respiratory status - 95% on RA C. difficile colitis, resolved - Completed Flagyl on 10/23 - No diarrhea reported - off Lactinex Hypokalemia, resolved - Continue scheduled KCL 40 meq PO daily. - Follow and replace as needed. - potassium levels stable DVT prophylaxis: SCDs, YOUSIF hose, Lovenox. Ambulation. GI prophylaxis: Protonix. Discussed with patient, nursing staff and Dr. James Discharge Planning Discharge planning ongoing. CM continues to address funding and placement issue. Pending SSI. Problem Qualifiers (1) Hypertension: Debra Krause Feb 19, 2017 14:54
--- NOTE | 2017-02-19 16:08 | EKG ---
Date Performed: 02/18/2017 Time Performed: 12:42:47 PTAGE: 52 years EKG: Sinus rhythm Compared to previous tracing, PVCs have resolved NORMAL ECG PREVIOUS TRACING : 12/08/2016 13.17 DOCTOR: Milton Hauser Interpretating Date/Time 02/19/2017 16:06:49
[2017-02-19 16:12] VITALS: BP 112/72; PULSE 81; RESP 19; TEMP 97.6; O2SAT 94
[2017-02-19 20:45] VITALS: BP 132/79; PULSE 82; RESP 19; TEMP 98.3; O2SAT 94
[2017-02-19] MEDS: ENOXAPARIN SODIUM 40 MG/0.4 ML SYRINGE SQ SCH (21:49)
[2017-02-20 01:04] VITALS: BP 100/57; PULSE 70; RESP 20; TEMP 97.8; O2SAT 93
[2017-02-20] MEDS: LABETALOL HCL 100 MG TAB PO SCH ×3 (04:00→23:37)
[2017-02-20 04:49] VITALS: BP 109/68; PULSE 64; RESP 20; TEMP 97.9; O2SAT 94
[2017-02-20 07:53] VITALS: BP 120/80; PULSE 90; RESP 18; TEMP 97.5; O2SAT 94
[2017-02-20] MEDS: amLODIPine BESYLATE 5 MG TAB PO SCH (08:16)
[2017-02-20] MEDS: POTASSIUM CHLORIDE 20 MEQ CONTROLLED RELEASE TAB PO SCH (08:16)
[2017-02-20] MEDS: PANTOPRAZOLE SOD 40 MG DELAYED RELEASE TAB PO SCH (08:16)
[2017-02-20] MEDS: QUEtiapine FUMARATE 100 MG TAB PO SCH ×2 (08:16→12:18)
[2017-02-20] MEDS: DOCUSATE SODIUM 50 MG/SENNA 8.6 MG TAB PO SCH ×2 (08:16→21:00)
[2017-02-20] MEDS: PRAVASTATIN SOD 40 MG TAB PO SCH (08:16)
--- NOTE | 2017-02-20 08:55 | HHI.PR ---
Subjective Remarks Follow-up visit intracranial hemorrhage, basilar tip aneurysm, Status post PHARMACY BILLING ADJUDICATOR shunt. Patient seen and examined today. Patients only complaint today is he did not sleep well. Denies any complaints of pain. Denies any fever or chills. No chest pain or SOB. No N/V or abdominal pain. Objective Vitals Vital Signs Date Time Temp Pulse Resp B/P (MAP) Pulse Ox O2 Delivery O2 Flow Rate FiO2 02/20/17 07:53 97.5 90 18 120/80 (93) 94 02/20/17 04:49 97.9 64 20 109/68 (82) 94 02/20/17 01:04 97.8 70 20 100/57 (71) 93 02/19/17 20:45 98.3 82 19 132/79 (96) 94 02/19/17 16:12 97.6 81 19 112/72 (85) 94 02/19/17 13:45 98.8 97 18 130/87 (101) 94 I/O 02/19/17 02/19/17 02/19/17 02/20/17 02/20/17 02/20/17 07:00 15:00 23:00 07:00 15:00 23:00 Intake Total 200 ml 960 ml Output Total 400 ml Balance -200 ml 960 ml Intake Oral 200 ml 960 ml Output Urine Total 400 ml # Voids 3 4 # Bowel Movements 0 0 Result Diagram: 02/17/17 1804 02/17/17 1804 Imaging Last Impressions Chest X-Ray 02/18/17 0000 Signed Impressions: Service Date/Time: Saturday, February 18, 2017 10:51 - CONCLUSION: Diminished lung volumes. No infiltrate. Tyrese Raymond MD Gall Bladder Ultrasound 02/17/17 0000 Signed Impressions: Service Date/Time: Friday, February 17, 2017 17:45 - CONCLUSION: Mildly enlarged liver and small amount of gallbladder sludge. Tim Hammonds MD Abdomen X-Ray 01/20/17 0000 Signed Impressions: Service Date/Time: Friday, January 20, 2017 10:46 - CONCLUSION: No acute abnormality is identified. Tim Montgomery MD Head CT 12/09/16 0000 Signed Impressions: Service Date/Time: Friday, December 09, 2016 17:36 - CONCLUSION: 1. Right ventriculostomy tube remains in place with decrease in ventricular size since November 24. There is some encephalomalacia around the shunt and a probable small infarct in the left basal ganglia. No new hemorrhage or shift. Tip Harris MD Transcranial Doppler Study Complete 10/26/16 0700 Signed Impressions: Service Date/Time: Wednesday, October 26, 2016 08:20 - CONCLUSION: Minimal interval improvement with no evidence for vasospasm. Christian Song MD FACR Neck CTA 10/19/16 0000 Signed Impressions: Service Date/Time: Wednesday, October 19, 2016 14:19 - CONCLUSION: Negative for dissection or significant stenosis. Christian Song MD FACR Head CTA 10/19/16 0000 Signed Impressions: Service Date/Time: Wednesday, October 19, 2016 14:19 - CONCLUSION: 1. Interval development of significant vasospasm in the left MCA and SRI territories. 2. Mild vasospasm in the basilar artery.. Gume Mckeon MD Cerebral Arteriogram 10/19/16 0000 Signed Impressions: Service Date/Time: Wednesday, October 19, 2016 16:06 - CONCLUSION: 1. Vasospasm in the left MCA and SRI territories 2. Spasmolytic infusion, left internal carotid artery as above.. 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 Gume Mckeon MD Pelvis X-Ray 10/05/16109 Signed Impressions: Service Date/Time: Wednesday, October 05, 2016 01:22 - CONCLUSION: Unremarkable examination of the pelvis. Ruben Acuña Jr., MD Chest CT 10/05/16109 Signed Impressions: Service Date/Time: Wednesday, October 05, 2016 01:46 - CONCLUSION: 1. No acute intrathoracic abnormality. 2. Bibasilar atelectasis. 3. Cardiomegaly. 4. Prior granulomatous disease. Ruben Acuña Jr., MD Cervical Spine CT 10/05/16109 Signed Impressions: Service Date/Time: Wednesday, October 05, 2016 01:40 - CONCLUSION: 1. No fracture or dislocation. 2. Multilevel degenerative changes. Ruben Acuña Jr., MD Abdomen/Pelvis CT 10/05/16 0110 Signed Impressions: Service Date/Time: Wednesday, October 05, 2016 01:46 - CONCLUSION: 1. No acute trauma. 2. Rounded area of decreased density involving the pancreatic head. I cannot completely exclude pancreatic head mass. At some point MRI of the pancreas is suggested to further evaluate. 3. Focal area of poor enhancement involving the left kidney. This may relate to an area of parenchymal scarring. I cannot completely exclude a mass. This can be further assessed with MRI as well. Ruben Acuña Jr., MD Objective Remarks GENERAL: Well-nourished, well-developed male patient, in no apparent distress. Awake and alert. Sitting up at nurses station. SKIN: No rash. Warm and dry. HEENT: Normocephalic. Extraocular motions intact. No scleral icterus. No injection or drainage. Nose without bleeding. MMM. Airway patent. NECK: Trachea midline. Supple. CARDIOVASCULAR: RRR. No murmur appreciated. RESPIRATORY: Nonlabored. Clear to auscultation. Breath sounds equal bilaterally. No wheezes, rales, or rhonchi. GASTROINTESTINAL: Abdomen soft, nondistended and nontender. BS x 4. MUSCULOSKELETAL: Extremities without clubbing, cyanosis, or edema. NEUROLOGICAL: Awake and alert. Oriented to self only. Moves all 4 extremities. Motor and sensory function grossly intact. Normal speech. Procedures 10/05/16 right frontal twist drill for ventriculostomy placement 10/20/16 arterial line placement 10/23/16 bedside percutaneous tracheostomy under direct bronchoscopic visualization 10/24/16 PEG tube placement at bedside Medications and IVs Current Medications Medications (Trade) Dose Ordered Sig/Nava Route Start Time Stop Time Status Last Admin (Tylenol) 650 mg Q6H PRN PO 10/05/16 02:45 02/17/17 21:21 (Zofran Inj) 4 mg Q6H PRN IV 10/05/16 02:45 11/27/16 23:26 Miscellaneous Information 1 Q361D XX 10/05/16 02:45 10/05/16 02:45 (Pravachol) 40 mg DAILY PO 10/05/16 09:00 02/20/17 08:16 (Lovenox Inj) 40 mg Q24H SQ 10/23/16 21:00 Future hold 02/19/17 21:49 (Trandate) 100 mg Q8H PO 11/03/16 20:00 02/19/17 21:49 (Norvasc) 5 mg DAILY PO 11/04/16 09:00 02/20/17 08:16 (Imodium) 2 mg UNSCH PRN PO 11/09/16 09:45 11/29/16 12:57 (Lomotil Tab) 1 tab Q6H PRN PO 11/09/16 09:45 (Lactulose Liq) 30 ml QID PRN PO 12/09/16 13:45 (Protonix) 40 mg DAILY PO 12/16/16 09:00 02/20/17 08:16 (Benadryl) 50 mg Q6H PRN PO 12/20/16 17:45 02/17/17 21:21 (SEROquel) 100 mg BID@09,12 PO 01/30/17 12:00 02/20/17 08:16 (Colace) 100 mg Q12H PRN PO 02/12/17 00:15 (Duoneb Neb) 1 ampule Q4HR NEB PRN INH 02/12/17 12:00 (KCl) 40 meq DAILY PO 02/13/17 09:00 02/20/17 08:16 (Tonie-Colace) 1 tab BID PO 02/18/17 09:30 02/20/17 08:16 A/P Problem List: (1) 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 ICD Code: I60.8 - Other nontraumatic subarachnoid hemorrhage Status: Acute (2) Hypertension ICD Code: I10 - Essential (primary) hypertension Status: Chronic (3) Major neurocognitive disorder due to vascular disease, without behavioral disturbance, severe ICD Code: F01.50 - Vascular dementia without behavioral disturbance Status: Acute (4) Septic shock ICD Code: A41.9 - Sepsis, unspecified organism; R65.21 - Severe sepsis with septic shock Status: Resolved (5) Hydrocephalus ICD Code: G91.9 - Hydrocephalus, unspecified Status: Acute (6) Intracranial hemorrhage ICD Code: I62.9 - Nontraumatic intracranial hemorrhage, unspecified Status: Acute (7) Major neurocognitive disorder as late effect of traumatic brain injury with behavioral disturbance ICD Code: S06.9X9S - Unspecified intracranial injury with loss of consciousness of unspecified duration, sequela; F02.81 - Dementia in other diseases classified elsewhere with behavioral disturbance Status: Acute (8) Encephalopathy ICD Code: G93.40 - Encephalopathy, unspecified Status: Acute (9) Sepsis ICD Code: A41.9 - Sepsis, unspecified organism Status: Resolved (10) Pneumonia ICD Code: J18.9 - Pneumonia, unspecified organism Status: Acute (11) Protein-calorie malnutrition, mild ICD Code: E44.1 - Mild protein-calorie malnutrition Status: Acute (12) Acute respiratory failure with hypoxia and hypercarbia ICD Code: J96.01 - Acute respiratory failure with hypoxia; J96.02 - Acute respiratory failure with hypercapnia Status: Acute Assessment and Plan Mr. Nunez is a 51 year old male who was brought to the hospital as a trauma alert due to head injury after he fell in the bathroom and hit his head. Patient was unresponsive for approximately 15 minutes by the time ambulance services arrived. His mentation waxed and waned with GCS ranging from [address] head indicated subarachnoid hemorrhage, acute. Auditory hallucinations - Psychiatry consulted - Continues to have hallucinations but patients behavior has been much improved with Seroquel use. - Continue to monitor with ADLs Intracranial hemorrhage, status post basilar artery coiling 10/05, Status post PHARMACY BILLING ADJUDICATOR shunt on 11/24/2016 Chronic encephalopathy Hydrocephalus Cortical blindness - Neurology signed off. Neuropsychology following patient ultimately for discharge placement and assistance with recommendations. Per neuropsych note, ongoing areas of concern include behavioral impulsivity, lack of insight and judgement. - Speech therapy recommends regular diet with thin liquids, Patient is eating well. PEG dc'd 01/08/17. - Continue Seroquel 100mg BID per psychiatry HTN - controlled - continue on Norvasc 5mg daily and Labetalol 100mg q8h - Labetalol held today due to low BP. Better now. Acute hypoxic hypercarbic respiratory failure, resolved - Tracheostomy 10/23/16, removed, old trach site healed. - Monitor respiratory status - 95% on RA C. difficile colitis, resolved - Completed Flagyl on 10/23 - No diarrhea reported - off Lactinex Hypokalemia, resolved - Continue scheduled KCL 40 meq PO daily. - Follow and replace as needed. - potassium levels stable DVT prophylaxis: SCDs, YOUSIF hose, Lovenox. Ambulation. GI prophylaxis: Protonix. Discussed with patient, nursing staff and Dr. James Discharge Planning Discharge planning ongoing. CM continues to address funding and placement issue. Pending SSI. Problem Qualifiers (1) Hypertension: Debra Krause Feb 20, 2017 08:55
[2017-02-20 11:28] VITALS: BP 123/84; PULSE 88; RESP 18; TEMP 97.6; O2SAT 95
[2017-02-20 16:38] VITALS: BP 137/82; PULSE 87; RESP 18; TEMP 98.8; O2SAT 95
[2017-02-20 20:00] VITALS: BP 135/80; PULSE 85; RESP 18; TEMP 98.3; O2SAT 92
[2017-02-20] MEDS: ENOXAPARIN SODIUM 40 MG/0.4 ML SYRINGE SQ SCH (23:37)
[2017-02-21 05:58] VITALS: BP 131/79; PULSE 79; RESP 20; TEMP 98.3; O2SAT 95
[2017-02-21] MEDS: LABETALOL HCL 100 MG TAB PO SCH ×3 (05:59→21:09)
[2017-02-21 08:07] VITALS: BP 134/88; PULSE 63; RESP 20; TEMP 98.4; O2SAT 93
[2017-02-21] MEDS: QUEtiapine FUMARATE 100 MG TAB PO SCH ×2 (08:50→12:03)
[2017-02-21] MEDS: POTASSIUM CHLORIDE 20 MEQ CONTROLLED RELEASE TAB PO SCH (08:50)
[2017-02-21] MEDS: DOCUSATE SODIUM 50 MG/SENNA 8.6 MG TAB PO SCH ×2 (08:50→21:00)
[2017-02-21] MEDS: PANTOPRAZOLE SOD 40 MG DELAYED RELEASE TAB PO SCH (08:50)
[2017-02-21] MEDS: amLODIPine BESYLATE 5 MG TAB PO SCH (08:50)
[2017-02-21] MEDS: PRAVASTATIN SOD 40 MG TAB PO SCH (08:50)
[2017-02-21 12:04] VITALS: BP 123/81; PULSE 110; RESP 20; TEMP 98.6; O2SAT 94
--- NOTE | 2017-02-21 12:37 | HHI.PR ---
Subjective Remarks Follow-up visit intracranial hemorrhage, basilar tip aneurysm, Status post BRANCH SERVICE SPECIALIST shunt. Patient seen and examined today. Patients only complaint today is he did not sleep well. Pt denied hearing "voices'" and stated "voices care me if I can't identify where they are coming from." Denies any complaints of pain as well as fever, chills, cough, SOB, chest pain, NVD. Per RN (Ana) pt is without acute issues that have developed last night or since start of shift." Per RN, short term memory continues to be lacking. Objective Vitals Vital Signs Date Time Temp Pulse Resp B/P (MAP) Pulse Ox O2 Delivery O2 Flow Rate FiO2 02/21/17 12:04 98.6 110 20 123/81 (95) 94 02/21/17 08:07 98.4 63 20 134/88 (103) 93 02/21/17 05:58 98.3 79 20 131/79 (96) 95 02/20/17 20:00 98.3 85 18 135/80 (98) 92 02/20/17 16:38 98.8 87 18 137/82 (100) 95 I/O 02/20/17 02/20/17 02/20/17 02/21/17 02/21/17 02/21/17 07:00 15:00 23:00 07:00 15:00 23:00 Intake Total 480 ml Balance 480 ml Intake Oral 480 ml # Voids 4 3 1 # Bowel Movements 1 Result Diagram: 02/17/17180302/17/171803 Objective Remarks GENERAL: Pt encountered laying a bed, awake and alert. SKIN: Warm and dry. Tattoos noted. HEAD: Normocephalic. EYES: No scleral icterus. No injection or drainage. NECK: Supple, trachea midline. No lymphadenopathy. CARDIOVASCULAR: Regular rate and rhythm without murmurs, gallops, or rubs. RESPIRATORY: Breath sounds equal bilaterally. No accessory muscle use. GASTROINTESTINAL: Abdomen soft, non-tender, nondistended. Bowel sounds present in all quadrants. MUSCULOSKELETAL: No cyanosis, or edema. PSYCHIATRIC: Pt alert and oriented to self only. Reported he was in [place] [facility]" and stated the year was 2006. Stated he was in his "30's" though he correctly identified his date of . He did not evidence overt signs of anxiety or depression. Pt was pleasant and cooperative. Procedures 10/05/16 right frontal twist drill for ventriculostomy placement 10/20/16 arterial line placement 10/23/16 bedside percutaneous tracheostomy under direct bronchoscopic visualization 10/24/16 PEG tube placement at bedside Medications and IVs Current Medications Medications (Trade) Dose Ordered Sig/Nava Route Start Time Stop Time Status Last Admin (Tylenol) 650 mg Q6H PRN PO 10/05/16 02:45 02/17/17 21:21 (Zofran Inj) 4 mg Q6H PRN IV 10/05/16 02:45 11/27/16 23:26 Miscellaneous Information 1 Q361D XX 10/05/16 02:45 10/05/16 02:45 (Pravachol) 40 mg DAILY PO 10/05/16 09:00 02/21/17 08:50 (Lovenox Inj) 40 mg Q24H SQ 10/23/16 21:00 Future hold 02/20/17 23:37 (Trandate) 100 mg Q8H PO 11/03/16 20:00 02/21/17 12:03 (Norvasc) 5 mg DAILY PO 11/04/16 09:00 02/21/17 08:50 (Imodium) 2 mg UNSCH PRN PO 11/09/16 09:45 11/29/16 12:57 (Lomotil Tab) 1 tab Q6H PRN PO 11/09/16 09:45 (Lactulose Liq) 30 ml QID PRN PO 12/09/16 13:45 (Protonix) 40 mg DAILY PO 12/16/16 09:00 02/21/17 08:50 (Benadryl) 50 mg Q6H PRN PO 12/20/16 17:45 02/17/17 21:21 (SEROquel) 100 mg BID@09,12 PO 01/30/17 12:00 02/21/17 12:03 (Colace) 100 mg Q12H PRN PO 02/12/17 00:15 (Duoneb Neb) 1 ampule Q4HR NEB PRN INH 02/12/17 12:00 (KCl) 40 meq DAILY PO 02/13/17 09:00 02/21/17 08:50 (Tonie-Colace) 1 tab BID PO 02/18/17 09:30 02/21/17 08:50 A/P Problem List: (1) 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 ICD Code: I60.8 - Other nontraumatic subarachnoid hemorrhage Status: Acute (2) Hypertension ICD Code: I10 - Essential (primary) hypertension Status: Chronic (3) Major neurocognitive disorder due to vascular disease, without behavioral disturbance, severe ICD Code: F01.50 - Vascular dementia without behavioral disturbance Status: Acute (4) Septic shock ICD Code: A41.9 - Sepsis, unspecified organism; R65.21 - Severe sepsis with septic shock Status: Resolved (5) Hydrocephalus ICD Code: G91.9 - Hydrocephalus, unspecified Status: Acute (6) Intracranial hemorrhage ICD Code: I62.9 - Nontraumatic intracranial hemorrhage, unspecified Status: Acute (7) Major neurocognitive disorder as late effect of traumatic brain injury with behavioral disturbance ICD Code: S06.9X9S - Unspecified intracranial injury with loss of consciousness of unspecified duration, sequela; F02.81 - Dementia in other diseases classified elsewhere with behavioral disturbance Status: Acute (8) Encephalopathy ICD Code: G93.40 - Encephalopathy, unspecified Status: Acute (9) Sepsis ICD Code: A41.9 - Sepsis, unspecified organism Status: Resolved (10) Pneumonia ICD Code: J18.9 - Pneumonia, unspecified organism Status: Acute (11) Protein-calorie malnutrition, mild ICD Code: E44.1 - Mild protein-calorie malnutrition Status: Acute (12) Acute respiratory failure with hypoxia and hypercarbia ICD Code: J96.01 - Acute respiratory failure with hypoxia; J96.02 - Acute respiratory failure with hypercapnia Status: Acute Assessment and Plan Mr. Nunez is a 51 year old male who was brought to the hospital as a trauma alert due to head injury after he fell in the bathroom and hit his head. Patient was unresponsive for approximately 15 minutes by the time ambulance services arrived. His mentation waxed and waned with GCS ranging from [address] head indicated subarachnoid hemorrhage, acute. Auditory Hallucinations: currently denied by pt. Hyponatremia: daily supplementation continues. Check labs 02/24. Auditory hallucinations - Psychiatry consulted - Continues to have hallucinations but patients behavior has been much improved with Seroquel use. - Continue to monitor with ADLs Intracranial hemorrhage, status post basilar artery coiling 10/05, Status post BRANCH SERVICE SPECIALIST shunt on 11/24/2016 Chronic encephalopathy Hydrocephalus Cortical blindness - Neurology signed off. Neuropsychology following patient ultimately for discharge placement and assistance with recommendations. Per neuropsych note, ongoing areas of concern include behavioral impulsivity, lack of insight and judgement. - Speech therapy recommends regular diet with thin liquids, Patient is eating well. PEG dc'd 01/08/17. - Continue Seroquel 100mg BID per psychiatry HTN - controlled - continue on Norvasc 5mg daily and Labetalol 100mg q8h Acute hypoxic hypercarbic respiratory failure, resolved - Tracheostomy 10/23/16, removed, old trach site healed. - Monitor respiratory status - 95% on RA C. difficile colitis, resolved - Completed Flagyl on 10/23 - No diarrhea reported - off Lactinex since 02/11/17 Hypokalemia, resolved - Continue scheduled KCL 40 meq PO daily. - Follow and replace as needed. - potassium levels stable DVT prophylaxis: SCDs, YOUSIF hose, Lovenox. Ambulation. GI prophylaxis: Protonix. Discussed with patient, nursing staff and Dr. James Discharge Planning Discharge planning ongoing. CM continues to address funding and placement issue. Pending SSI. Problem Qualifiers (1) Hypertension: Manolo Alvarez Jr. Feb 21, 2017 12:36
[2017-02-21 20:00] VITALS: BP 120/74; PULSE 99; RESP 20; TEMP 97.4; O2SAT 96
[2017-02-21] MEDS: ENOXAPARIN SODIUM 40 MG/0.4 ML SYRINGE SQ SCH (21:09)
[2017-02-21] MEDS: ACETAMINOPHEN 325 MG TAB PO PRN (21:09)
[2017-02-21] MEDS: diphenhydrAMINE HCL 50 MG CAP PO PRN (21:09)
[2017-02-22] MEDS: LABETALOL HCL 100 MG TAB PO SCH ×3 (03:24→19:37)
[2017-02-22 04:00] VITALS: BP 134/79; PULSE 87; RESP 20; TEMP 97; O2SAT 97
[2017-02-22 08:26] VITALS: BP 124/77; PULSE 69; RESP 20; TEMP 98.2; O2SAT 93
[2017-02-22] MEDS: DOCUSATE SODIUM 50 MG/SENNA 8.6 MG TAB PO SCH ×2 (09:00→19:37)
[2017-02-22] MEDS: POTASSIUM CHLORIDE 20 MEQ CONTROLLED RELEASE TAB PO SCH (10:01)
[2017-02-22] MEDS: QUEtiapine FUMARATE 100 MG TAB PO SCH ×2 (10:02→14:46)
[2017-02-22] MEDS: PANTOPRAZOLE SOD 40 MG DELAYED RELEASE TAB PO SCH (10:02)
[2017-02-22] MEDS: PRAVASTATIN SOD 40 MG TAB PO SCH (10:02)
[2017-02-22] MEDS: amLODIPine BESYLATE 5 MG TAB PO SCH (10:03)
--- NOTE | 2017-02-22 10:33 | HHI.PR ---
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 Pt seen and examined. Pt reported poor sleep last night. Discussed memory issues, stated he has "good memory: of events into his 20's and said more recent memories are "spotty". Pt stated he was hearing clinician "like I have two cans strapped to my ears.' Pt said he has to "cancel out one of the ears to hear one voice" and does so "with a little man in my head. He does whatever I want him to." Pt denied hearing other voices. Pt spoke of having some right forearm pain. No other issues noted or reported by pt. He denied fever, cough, shortness of breath, chest/abdominal pain, NVD. Per RN (Lyric) pt without issues overnight or since start of shift. Objective Vitals Vital Signs Date Time Temp Pulse Resp B/P (MAP) Pulse Ox O2 Delivery O2 Flow Rate FiO2 02/22/17 08:26 98.2 69 20 124/77 (93) 93 02/22/17 04:00 97.0 87 20 134/79 (97) 97 02/21/17 20:00 97.4 99 20 120/74 (89) 96 02/21/17 12:04 98.6 110 20 123/81 (95) 94 I/O 02/21/17 02/21/17 02/21/17 02/22/17 02/22/17 02/22/17 06:59 14:59 22:59 06:59 14:59 22:59 Intake Total 820 ml Balance 820 ml Intake Oral 820 ml # Voids 3 4 # Bowel Movements 1 Objective Remarks GENERAL: Pt encountered sitting up in bedside chair, remnants of recently eaten breakfast on tray in front of him, awake and alert. SKIN: Warm and dry. Tattoos noted. HEAD: Normocephalic. EYES: No scleral icterus. No injection or drainage. NECK: Supple, trachea midline. No lymphadenopathy. CARDIOVASCULAR: Regular rate and rhythm without murmurs, gallops, or rubs. RESPIRATORY: Breath sounds equal bilaterally. No accessory muscle use. GASTROINTESTINAL: Abdomen soft, non-tender, nondistended. Bowel sounds present in all quadrants. MUSCULOSKELETAL: No cyanosis, or edema. PSYCHIATRIC: Pt alert and oriented to self only. Reported he was in [place] "in [place]" and stated the year was 1996. Pt recalled he was in the [employer] [facility] [employer] from [age] yrs old, served mostly in [place] and [place]. Memory issues noted in subjective portion of report. Pt was pleasant and cooperative. Procedures 10/05/16 right frontal twist drill for ventriculostomy placement 10/20/16 arterial line placement 10/23/16 bedside percutaneous tracheostomy under direct bronchoscopic visualization 10/24/16 PEG tube placement at bedside Medications and IVs Current Medications Medications (Trade) Dose Ordered Sig/Nava Route Start Time Stop Time Status Last Admin (Tylenol) 650 mg Q6H PRN PO 10/05/16 02:45 02/21/17 21:09 (Zofran Inj) 4 mg Q6H PRN IV 10/05/16 02:45 11/27/16 23:26 Miscellaneous Information 1 Q361D XX 10/05/16 02:45 10/05/16 02:45 (Pravachol) 40 mg DAILY PO 10/05/16 09:00 02/22/17 10:02 (Lovenox Inj) 40 mg Q24H SQ 10/23/16 21:00 Future hold 02/21/17 21:09 (Trandate) 100 mg Q8H PO 11/03/16 20:00 02/21/17 21:09 (Norvasc) 5 mg DAILY PO 11/04/16 09:00 02/22/17 10:03 (Imodium) 2 mg UNSCH PRN PO 11/09/16 09:45 11/29/16 12:57 (Lomotil Tab) 1 tab Q6H PRN PO 11/09/16 09:45 (Lactulose Liq) 30 ml QID PRN PO 12/09/16 13:45 (Protonix) 40 mg DAILY PO 12/16/16 09:00 02/22/17 10:02 (Benadryl) 50 mg Q6H PRN PO 12/20/16 17:45 02/21/17 21:09 (SEROquel) 100 mg BID@09,12 PO 01/30/17 12:00 02/22/17 10:02 (Colace) 100 mg Q12H PRN PO 02/12/17 00:15 (Duoneb Neb) 1 ampule Q4HR NEB PRN INH 02/12/17 12:00 (KCl) 40 meq DAILY PO 02/13/17 09:00 02/22/17 10:01 (Tonie-Colace) 1 tab BID PO 02/18/17 09:30 02/21/17 08:50 Urinary Catheter: No A/P Problem List: (1) 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 ICD Code: I60.8 - Other nontraumatic subarachnoid hemorrhage Status: Acute (2) Hypertension ICD Code: I10 - Essential (primary) hypertension Status: Chronic (3) Major neurocognitive disorder due to vascular disease, without behavioral disturbance, severe ICD Code: F01.50 - Vascular dementia without behavioral disturbance Status: Acute (4) Septic shock ICD Code: A41.9 - Sepsis, unspecified organism; R65.21 - Severe sepsis with septic shock Status: Resolved (5) Hydrocephalus ICD Code: G91.9 - Hydrocephalus, unspecified Status: Acute (6) Intracranial hemorrhage ICD Code: I62.9 - Nontraumatic intracranial hemorrhage, unspecified Status: Acute (7) Major neurocognitive disorder as late effect of traumatic brain injury with behavioral disturbance ICD Code: S06.9X9S - Unspecified intracranial injury with loss of consciousness of unspecified duration, sequela; F02.81 - Dementia in other diseases classified elsewhere with behavioral disturbance Status: Acute (8) Encephalopathy ICD Code: G93.40 - Encephalopathy, unspecified Status: Acute (9) Sepsis ICD Code: A41.9 - Sepsis, unspecified organism Status: Resolved (10) Pneumonia ICD Code: J18.9 - Pneumonia, unspecified organism Status: Acute (11) Protein-calorie malnutrition, mild ICD Code: E44.1 - Mild protein-calorie malnutrition Status: Acute (12) Acute respiratory failure with hypoxia and hypercarbia ICD Code: J96.01 - Acute respiratory failure with hypoxia; J96.02 - Acute respiratory failure with hypercapnia Status: Acute Assessment and Plan Mr. Nunez is a 51 year old male who was brought to the hospital as a trauma alert due to head injury after he fell in the bathroom and hit his head. Patient was unresponsive for approximately 15 minutes by the time ambulance services arrived. His mentation waxed and waned with GCS ranging from [address] head indicated subarachnoid hemorrhage, acute. Auditory Hallucinations: currently denied by pt. However, verbalized delusional process. Psychiatric medications. Will reconsult psychiatry should mental condition worsen. Auditory hallucinations - Psychiatry consulted - Continues to have hallucinations but patients behavior has been much improved with Seroquel use. - Continue to monitor with ADLs Intracranial hemorrhage, status post basilar artery coiling 10/05, Status post ENTERPRISE RECORDS ANALYST shunt on 11/24/2016 Chronic encephalopathy Hydrocephalus Cortical blindness - Neurology signed off. Neuropsychology following patient ultimately for discharge placement and assistance with recommendations. Per neuropsych note, ongoing areas of concern include behavioral impulsivity, lack of insight and judgement. - Speech therapy recommends regular diet with thin liquids, Patient is eating well. PEG dc'd 01/08/17. - Continue Seroquel 100mg BID per psychiatry HTN - controlled - continue on Norvasc 5mg daily and Labetalol 100mg q8h Acute hypoxic hypercarbic respiratory failure, resolved - Tracheostomy 10/23/16, removed, old trach site healed. - Monitor respiratory status - 95% on RA C. difficile colitis, resolved - Completed Flagyl on 10/23 - No diarrhea reported - off Lactinex since 02/11/17 Hypokalemia, resolved - Continue scheduled KCL 40 meq PO daily. - Follow and replace as needed. - potassium levels stable DVT prophylaxis: SCDs, YOUSIF hose, Lovenox. Ambulation. GI prophylaxis: Protonix. Discussed with patient, nursing staff and Dr. James Discharge Planning Discharge planning ongoing. CM continues to address funding and placement issue. Pending SSI. Problem Qualifiers (1) Hypertension: Manolo Alvarez Jr. Feb 22, 2017 10:33
[2017-02-22 12:50] VITALS: BP 132/81; PULSE 81; RESP 20; TEMP 97.9; O2SAT 97
[2017-02-22 16:24] VITALS: BP 130/75; PULSE 91; RESP 20; TEMP 97.9; O2SAT 93
[2017-02-22] MEDS: diphenhydrAMINE HCL 50 MG CAP PO PRN (19:36)
[2017-02-22] MEDS: ACETAMINOPHEN 325 MG TAB PO PRN (19:37)
[2017-02-22] MEDS: ENOXAPARIN SODIUM 40 MG/0.4 ML SYRINGE SQ SCH (19:37)
[2017-02-22 20:00] VITALS: BP 131/99; PULSE 88; RESP 20; TEMP 98.5; O2SAT 95
[2017-02-22 23:42] VITALS: BP 120/74; PULSE 81; RESP 18; TEMP 98.5; O2SAT 98
[2017-02-23] MEDS: LABETALOL HCL 100 MG TAB PO SCH ×3 (05:01→22:12)
[2017-02-23 05:19] VITALS: BP 118/81; PULSE 72; RESP 16; TEMP 97.8; O2SAT 93
[2017-02-23 07:44] VITALS: BP 127/79; PULSE 85; RESP 16; TEMP 98.7; O2SAT 93
[2017-02-23] MEDS: POTASSIUM CHLORIDE 20 MEQ CONTROLLED RELEASE TAB PO SCH (07:48)
[2017-02-23] MEDS: PRAVASTATIN SOD 40 MG TAB PO SCH (07:48)
[2017-02-23] MEDS: QUEtiapine FUMARATE 100 MG TAB PO SCH ×2 (07:48→12:38)
[2017-02-23] MEDS: amLODIPine BESYLATE 5 MG TAB PO SCH (07:48)
[2017-02-23] MEDS: DOCUSATE SODIUM 50 MG/SENNA 8.6 MG TAB PO SCH ×2 (07:48→22:12)
[2017-02-23] MEDS: PANTOPRAZOLE SOD 40 MG DELAYED RELEASE TAB PO SCH (07:48)
[2017-02-23 12:00] VITALS: BP 127/85; PULSE 93; RESP 18; TEMP 98.1; O2SAT 92
--- NOTE | 2017-02-23 12:58 | PD.PSY.CON ---
Provisional Diagnosis Admission Date Oct 05, 2016 at 02:26 [place] I. Unspecified psychosis, Major neurocognitive disorder due to TBI without behavioral disturbances, [place] II. Deferred [place] III. HTN History of Present Illness Service Psychiatry Consult Requested By Mike Reason for Consult Behavioral dyscontrol Primary Care Physician HPI The patient 51-year-old man, , unemployed, domicile with his in [facility], father of 2 kids, without any previous psychiatric history, no previous psychiatric hospitalizations, no previous suicidal attempts, medical history hypertension, headaches, who was brought to the hospital as a trauma alert due to head injury after he fell in the bathroom and hit his head. Patient was unresponsive for approximately 15 minutes by the time ambulance services arrived. His mentation waxed and waned with GCS ranging from [address] head indicated subarachnoid hemorrhage, acute. Patient has been presenting Auditory hallucinations. On psychiatric evaluation patient is found in the nurse station sitting down. He is calm and cooperative, but confused and disoriented and with frequent confabulatory statements. Patient does not know the reason of his hospitalization, he says that he is here in the hospital because his girlfriend I yesterday in a car accident. As the patient tells us this he starts crying. But he was easily redirectable and goes back to initial mood. Patient reports good mood, he says that he is happy and he is waiting for his uncle to bring him a jacket form [place]. He actually thinks he is right now in [place] In senior living because I have killed over 30 people". Patient is disoriented in time and place. Recent and immediate recall impaired. He also seems to be having with vision and executive function related with visual activities. However, his language, naming, abstract thinking, concentration seems to be conserved. He denies visual and auditory hallucinations, he denies suicidal and homicidal ideation. But, during the conversation in multiple occasions he says that people are coming inside his room "coming form the window". No agitation, no aggressive behavior, no hostility, no acute paranoia are observed at this moment. 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 He never had any psychiatric history, he did not use any drugs or alcohol. He described him as a very hard-working man, sleeping , good father. Never had any problems with the law. There have any suicidal ideation or attempts, never took any psychotropic. Patient was never an aggressive person. Patient seen by Dr. Milton Van on February 23, 2017. Dr. Workman informs me the patient has intermittent and unpredictable episodes of agitation and the current medications are not as helpful to stabilize his mood and behavior as they once were. Patient noted to be on Seroquel but dose can certainly be increased. Review of Systems ROS Limitations: Clinical Condition Except as stated in HPI: all other systems reviewed are Neg Past Family Social History Coded Allergies: Sulfa (Sulfonamide Antibiotics) (Unverified Allergy, Unknown, 02/14/17) penicillin G (Unverified Allergy, Unknown, 02/14/17) Current Medications Medications (Trade) Dose Ordered Sig/Nava Route Start Time Stop Time Status Last Admin (Tylenol) 650 mg Q6H PRN PO 10/05/16 02:45 02/22/17 19:37 (Zofran Inj) 4 mg Q6H PRN IV 10/05/16 02:45 11/27/16 23:26 Miscellaneous Information 1 Q361D XX 10/05/16 02:45 10/05/16 02:45 (Pravachol) 40 mg DAILY PO 10/05/16 09:00 02/23/17 07:48 (Lovenox Inj) 40 mg Q24H SQ 10/23/16 21:00 Future hold 02/22/17 19:37 (Trandate) 100 mg Q8H PO 11/03/16 20:00 02/23/17 12:38 (Norvasc) 5 mg DAILY PO 11/04/16 09:00 02/23/17 07:48 (Imodium) 2 mg UNSCH PRN PO 11/09/16 09:45 11/29/16 12:57 (Lomotil Tab) 1 tab Q6H PRN PO 11/09/16 09:45 (Lactulose Liq) 30 ml QID PRN PO 12/09/16 13:45 (Protonix) 40 mg DAILY PO 12/16/16 09:00 02/23/17 07:48 (Benadryl) 50 mg Q6H PRN PO 12/20/16 17:45 02/22/17 19:36 (SEROquel) 100 mg BID@09,12 PO 7/31/17 12:00 02/23/17 12:38 (Colace) 100 mg Q12H PRN PO 02/12/17 00:15 (Duoneb Neb) 1 ampule Q4HR NEB PRN INH 02/12/17 12:00 (KCl) 40 meq DAILY PO 02/13/17 09:00 02/23/17 07:48 (Tonie-Colace) 1 tab BID PO 02/18/17 09:30 02/23/17 07:48 Patient's Strengths (min. 2) Support of his Physical Exam Vital Signs Vital Signs Date Time Temp Pulse Resp B/P (MAP) Pulse Ox O2 Delivery O2 Flow Rate FiO2 02/23/17 12:00 98.1 93 18 127/85 (99) 92 Lab Results Date/Time Source Procedure Growth Status 10/20/16 15:32 Blood Peripheral Aerobic Blood Culture - Final NO GROWTH IN 5 DAYS Complete 10/20/16 15:32 Blood Peripheral Anaerobic Blood Culture - Final NO GROWTH IN 5 DAYS Complete 11/24/16 16:25 Cerebral Spinal Fluid Shunt Fluid Gram Stain - Final Complete 11/24/16 16:25 CSF Culture - Final Viridans Streptococcus Grp Complete 10/28/16 22:00 Sputum Endotracheal Gram Stain - Final Complete 10/28/16 22:00 Sputum Culture - Final Enterobacter Cloacae Complete 11/14/16 06:00 Urine Clean Catch Urine Culture - Final NO GROWTH IN 48 HOURS. Complete Mental Status Examination Speech: Hesitant, Slow Orientation: Person Memory: Impaired (describe) Thought Process: Flight of Ideas, Loose Association Thought Content: Bizarre thinking Hallucination Type: Auditory, Visual Attention and Concentration: Easily Distracted Suicidal Ideation: No Previous Suicide Attempts: No Homicidal Ideation: No Previous Homicide Attempts: No Insight: Fair Judgment: Impulsive, Poor Affect: Irritable Affect if Inappropriate: Labile Mood: Irritable Motor Activity: Normal gait Assessment & Plan Problem List: (1) Major neurocognitive disorder due to vascular disease, without behavioral disturbance, severe ICD Codes: F01.50 - Vascular dementia without behavioral disturbance Status: Acute Assessment & Plan Estimated LOS: days. Patient's cognitive status is primarily unchanged. He may be developing tolerance to his psychotropic medications. This physician plans to increase the dose of his mood stabilizer. Milton Van MD Feb 23, 2017 12:58
[2017-02-23 16:00] VITALS: BP 129/75; PULSE 83; RESP 18; TEMP 97.6; O2SAT 96
--- NOTE | 2017-02-23 16:07 | HHI.PR ---
Subjective Remarks Follow-up visit intracranial hemorrhage, basilar tip aneurysm, Status post OPERATIONS AND MAINTENANCE SPECIALIST shunt. Pt seen and examined. Pt reported poor sleep last night. Pt asked about comments made yesterday about a "little man in my head". Pt denied having made the comment. Pt again denied hearing other voices. Pt spoke of having some left great toe and back pain No other issues noted or reported by pt. He denied fever, cough, shortness of breath, chest/abdominal pain, NVD. Per RN (Ana) pt without issues overnight or since start of shift. Nurse voiced concerns about pt being on unit requested pt being able to take "field trip" to [facility] area. Objective Vitals Vital Signs Date Time Temp Pulse Resp B/P (MAP) Pulse Ox O2 Delivery O2 Flow Rate FiO2 02/23/17 12:00 98.1 93 18 127/85 (99) 92 02/23/17 07:44 98.7 85 16 127/79 (95) 93 02/23/17 05:19 97.8 72 16 118/81 (93) 93 02/22/17 23:42 98.5 81 18 120/74 (89) 98 02/22/17 20:00 98.5 88 20 131/99 (110) 95 02/22/17 16:24 97.9 91 20 130/75 (93) 93 I/O 02/22/17 02/22/17 02/22/17 02/23/17 02/23/17 02/23/17 07:00 15:00 23:00 07:00 15:00 23:00 Intake Total 600 ml Balance 600 ml Intake Oral 600 ml # Voids 4 4 2 # Bowel Movements 1 Objective Remarks GENERAL: Pt encountered laying a bed, initially asleep yet quickly wakened. SKIN: Warm and dry. Tattoos noted. HEAD: Normocephalic. EYES: No scleral icterus. No injection or drainage. NECK: Supple, trachea midline. No lymphadenopathy. CARDIOVASCULAR: Regular rate and rhythm without murmurs, gallops, or rubs. RESPIRATORY: Breath sounds equal bilaterally. No accessory muscle use. GASTROINTESTINAL: Abdomen soft, non-tender, nondistended. Bowel sounds present in all quadrants. MUSCULOSKELETAL: No cyanosis, or edema. PSYCHIATRIC: Pt alert and oriented to self only. Reported he "don;t know where I am "and stated the year was 1994. Pt was pleasant and cooperative. Procedures 10/05/16 right frontal twist drill for ventriculostomy placement 10/20/16 arterial line placement 10/23/16 bedside percutaneous tracheostomy under direct bronchoscopic visualization 10/24/16 PEG tube placement at bedside Medications and IVs Current Medications Medications (Trade) Dose Ordered Sig/Nava Route Start Time Stop Time Status Last Admin (Tylenol) 650 mg Q6H PRN PO 10/05/16 02:45 02/22/17 19:37 (Zofran Inj) 4 mg Q6H PRN IV 10/05/16 02:45 11/27/16 23:26 Miscellaneous Information 1 Q361D XX 10/05/16 02:45 10/05/16 02:45 (Pravachol) 40 mg DAILY PO 10/05/16 09:00 02/23/17 07:48 (Lovenox Inj) 40 mg Q24H SQ 10/23/16 21:00 Future hold 02/22/17 19:37 (Trandate) 100 mg Q8H PO 11/03/16 20:00 02/23/17 12:38 (Norvasc) 5 mg DAILY PO 11/04/16 09:00 02/23/17 07:48 (Imodium) 2 mg UNSCH PRN PO 11/09/16 09:45 11/29/16 12:57 (Lomotil Tab) 1 tab Q6H PRN PO 11/09/16 09:45 (Lactulose Liq) 30 ml QID PRN PO 12/09/16 13:45 (Protonix) 40 mg DAILY PO 12/16/16 09:00 02/23/17 07:48 (Benadryl) 50 mg Q6H PRN PO 12/20/16 17:45 02/22/17 19:36 (Colace) 100 mg Q12H PRN PO 02/12/17 00:15 (Duoneb Neb) 1 ampule Q4HR NEB PRN INH 02/12/17 12:00 (KCl) 40 meq DAILY PO 02/13/17 09:00 02/23/17 07:48 (Tonie-Colace) 1 tab BID PO 02/18/17 09:30 02/23/17 07:48 (SEROquel) 200 mg BID@09,12 PO 02/24/17 09:00 Urinary Catheter: No A/P Problem List: (1) 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 ICD Code: I60.8 - Other nontraumatic subarachnoid hemorrhage Status: Acute (2) Hypertension ICD Code: I10 - Essential (primary) hypertension Status: Chronic (3) Major neurocognitive disorder due to vascular disease, without behavioral disturbance, severe ICD Code: F01.50 - Vascular dementia without behavioral disturbance Status: Acute (4) Septic shock ICD Code: A41.9 - Sepsis, unspecified organism; R65.21 - Severe sepsis with septic shock Status: Resolved (5) Hydrocephalus ICD Code: G91.9 - Hydrocephalus, unspecified Status: Acute (6) Intracranial hemorrhage ICD Code: I62.9 - Nontraumatic intracranial hemorrhage, unspecified Status: Acute (7) Major neurocognitive disorder as late effect of traumatic brain injury with behavioral disturbance ICD Code: S06.9X9S - Unspecified intracranial injury with loss of consciousness of unspecified duration, sequela; F02.81 - Dementia in other diseases classified elsewhere with behavioral disturbance Status: Acute (8) Encephalopathy ICD Code: G93.40 - Encephalopathy, unspecified Status: Acute (9) Sepsis ICD Code: A41.9 - Sepsis, unspecified organism Status: Resolved (10) Pneumonia ICD Code: J18.9 - Pneumonia, unspecified organism Status: Acute (11) Protein-calorie malnutrition, mild ICD Code: E44.1 - Mild protein-calorie malnutrition Status: Acute (12) Acute respiratory failure with hypoxia and hypercarbia ICD Code: J96.01 - Acute respiratory failure with hypoxia; J96.02 - Acute respiratory failure with hypercapnia Status: Acute Assessment and Plan Mr. Nunez is a 51 year old male who was brought to the hospital as a trauma alert due to head injury after he fell in the bathroom and hit his head. Patient was unresponsive for approximately 15 minutes by the time ambulance services arrived. His mentation waxed and waned with GCS ranging from [address] head indicated subarachnoid hemorrhage, acute. Hallucinations and delusions: denied by pt and not readily apparent. Continue psychiatric medications. Neuropsychologist consulted psychiatry, dose adjustment noted for Seroquel now 200 mg BID. Therapy courtyard visits placed. Auditory hallucinations - Psychiatry consulted - Continues to have hallucinations but patients behavior has been much improved with Seroquel use. - Continue to monitor with ADLs -Seroquel; 200 mg BID Intracranial hemorrhage, status post basilar artery coiling 10/05, Status post OPERATIONS AND MAINTENANCE SPECIALIST shunt on 11/24/2016 Chronic encephalopathy Hydrocephalus Cortical blindness - Neurology signed off. Neuropsychology following patient ultimately for discharge placement and assistance with recommendations. Per neuropsych note, ongoing areas of concern include behavioral impulsivity, lack of insight and judgement. - Speech therapy recommends regular diet with thin liquids, Patient is eating well. PEG dc'd 01/08/17. - Continue Seroquel 100mg BID per psychiatry HTN - controlled - continue on Norvasc 5mg daily and Labetalol 100mg q8h Acute hypoxic hypercarbic respiratory failure, resolved - Tracheostomy 10/23/16, removed, old trach site healed. - Monitor respiratory status - 95% on RA C. difficile colitis, resolved - Completed Flagyl on 10/23 - No diarrhea reported - off Lactinex since 02/11/17 Hypokalemia, resolved - Continue scheduled KCL 40 meq PO daily. - Follow and replace as needed. - potassium levels stable DVT prophylaxis: SCDs, YOUSIF han, Lovenox. Ambulation. GI prophylaxis: Protonix. Discussed with patient, nursing staff and Dr. James Discharge Planning Discharge planning ongoing. CM continues to address funding and placement issue. Pending SSI. Problem Qualifiers (1) Hypertension: Manolo Alvarez Jr. Feb 23, 2017 16:07
[2017-02-23] MEDS: ACETAMINOPHEN 325 MG TAB PO PRN (17:02)
[2017-02-23] MEDS: ENOXAPARIN SODIUM 40 MG/0.4 ML SYRINGE SQ SCH (22:12)
[2017-02-24] VITALS (7 sets, daily range): BP systolic 93–137; BP diastolic 56–80; PULSE 68–97; RESP 18–20; TEMP 97.3–98.7; O2SAT 94–100
[2017-02-24] MEDS: LABETALOL HCL 100 MG TAB PO SCH ×3 (06:09→20:10)
[2017-02-24] MEDS: QUEtiapine FUMARATE 100 MG TAB PO SCH ×2 (08:39→12:39)
[2017-02-24] MEDS: PRAVASTATIN SOD 40 MG TAB PO SCH (08:39)
[2017-02-24] MEDS: amLODIPine BESYLATE 5 MG TAB PO SCH (08:39)
[2017-02-24] MEDS: PANTOPRAZOLE SOD 40 MG DELAYED RELEASE TAB PO SCH (08:39)
[2017-02-24] MEDS: DOCUSATE SODIUM 50 MG/SENNA 8.6 MG TAB PO SCH ×2 (08:39→20:10)
[2017-02-24] MEDS: POTASSIUM CHLORIDE 20 MEQ CONTROLLED RELEASE TAB PO SCH (08:40)
[2017-02-24 10:10] LABS: HEMATOCRIT 41.3 % (39.0-51.0); HEMOGLOBIN 13.5 GM/DL (13.0-17.0); MEAN CELL VOLUME 87.7 FL (80.0-100.0); MEAN CORPUSCULAR HEMOGLOBIN 28.8 PG (27.0-34.0); MEAN CORPUSCULAR HGB CONC 32.8 % (32.0-36.0); MEAN PLATELET VOLUME 9.1 FL (7.0-11.0); PLATELET COUNT 206 TH/MM3 (150-450); RED BLOOD COUNT 4.71 MIL/MM3 (4.50-5.90); RED CELL DISTRIBUTION WIDTH 14.4 % (11.6-17.2); WHITE BLOOD COUNT 6.8 TH/MM3 (4.0-11.0)
[2017-02-24 10:48] LABS: BICARBONATE 25.3 MEQ/L (21.0-32.0); CALCIUM 8.4 MG/DL (8.5-10.1); CREATININE 1.12 MG/DL (0.60-1.30)
--- NOTE | 2017-02-24 15:05 | HHI.PR ---
Subjective Remarks Follow-up visit intracranial hemorrhage, basilar tip aneurysm, Status post OBSTETRICS GYN PHYSICIAN shunt. Pt seen and examined. Pt reported adequate sleep last night. Pt asked about comments made two days ago about a "little man in my head". Pt reported having "him there since grade school." Pt stated the man was present while he was in the [employer]. Pt was asked if he reported it to the [employer]. and he denied. Saying "it would have gotten me the [facility] discharge." Pt denied the "man" speaks to him yet "does what I ask him to do." No other issues noted or reported by pt. He denied fever, cough, shortness of breath, chest/abdominal/back pain, NVD. Per RN (Ana) pt without issues overnight or since start of shift. Objective Vitals Vital Signs Date Time Temp Pulse Resp B/P (MAP) Pulse Ox O2 Delivery O2 Flow Rate FiO2 02/24/17 12:41 97.3 97 18 121/80 (94) 95 02/24/17 09:41 96 02/24/17 08:45 98.0 84 18 137/72 (93) 94 02/24/17 04:00 97.6 84 18 112/70 (84) 98 02/24/17 00:00 98.7 73 20 110/56 (74) 94 02/23/17 16:00 97.6 83 18 129/75 (93) 96 I/O 02/23/17 02/23/17 02/23/17 02/24/17 02/24/17 02/24/17 06:59 14:59 22:59 06:59 14:59 22:59 Intake Total 570 ml Balance 570 ml Intake Oral 570 ml # Voids 3 6 # Bowel Movements 1 1 Result Diagram: 02/24/1782702/24/17827 Objective Remarks GENERAL: Pt encountered being walked to observational nurse's station to a reclining chair, awake and alert SKIN: Warm and dry. Tattoos noted. HEAD: Normocephalic. EYES: No scleral icterus. No injection or drainage. NECK: Supple, trachea midline. No lymphadenopathy. CARDIOVASCULAR: Regular rate and rhythm without murmurs, gallops, or rubs. RESPIRATORY: Breath sounds equal bilaterally. No accessory muscle use. GASTROINTESTINAL: Abdomen soft, non-tender, nondistended. Bowel sounds present in all quadrants. MUSCULOSKELETAL: No cyanosis, or edema. PSYCHIATRIC: Pt alert and oriented to self only. Reported "I don't know" when asked about the current city. He stated he was in [place] and said the year was 1994. Pt was pleasant and cooperative. Procedures 10/05/16 right frontal twist drill for ventriculostomy placement 10/20/16 arterial line placement 10/23/16 bedside percutaneous tracheostomy under direct bronchoscopic visualization 10/24/16 PEG tube placement at bedside Medications and IVs Current Medications Medications (Trade) Dose Ordered Sig/Nava Route Start Time Stop Time Status Last Admin (Tylenol) 650 mg Q6H PRN PO 10/05/16 02:45 02/23/17 17:02 (Zofran Inj) 4 mg Q6H PRN IV 10/05/16 02:45 11/27/16 23:26 Miscellaneous Information 1 Q361D XX 10/05/16 02:45 10/05/16 02:45 (Pravachol) 40 mg DAILY PO 10/05/16 09:00 02/24/17 08:39 (Lovenox Inj) 40 mg Q24H SQ 10/23/16 21:00 Future hold 02/23/17 22:12 (Trandate) 100 mg Q8H PO 11/03/16 20:00 02/24/17 12:39 (Norvasc) 5 mg DAILY PO 11/04/16 09:00 02/24/17 08:39 (Imodium) 2 mg UNSCH PRN PO 11/09/16 09:45 11/29/16 12:57 (Lomotil Tab) 1 tab Q6H PRN PO 11/09/16 09:45 (Lactulose Liq) 30 ml QID PRN PO 12/09/16 13:45 (Protonix) 40 mg DAILY PO 12/16/16 09:00 02/24/17 08:39 (Benadryl) 50 mg Q6H PRN PO 12/20/16 17:45 02/22/17 19:36 (Colace) 100 mg Q12H PRN PO 02/12/17 00:15 (Duoneb Neb) 1 ampule Q4HR NEB PRN INH 02/12/17 12:00 (KCl) 40 meq DAILY PO 02/13/17 09:00 02/24/17 08:40 (Tonie-Colace) 1 tab BID PO 02/18/17 09:30 02/24/17 08:39 (SEROquel) 200 mg BID@09,12 PO 02/24/17 09:00 02/24/17 12:39 A/P Problem List: (1) 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 ICD Code: I60.8 - Other nontraumatic subarachnoid hemorrhage Status: Acute (2) Hypertension ICD Code: I10 - Essential (primary) hypertension Status: Chronic (3) Major neurocognitive disorder due to vascular disease, without behavioral disturbance, severe ICD Code: F01.50 - Vascular dementia without behavioral disturbance Status: Acute (4) Septic shock ICD Code: A41.9 - Sepsis, unspecified organism; R65.21 - Severe sepsis with septic shock Status: Resolved (5) Hydrocephalus ICD Code: G91.9 - Hydrocephalus, unspecified Status: Acute (6) Intracranial hemorrhage ICD Code: I62.9 - Nontraumatic intracranial hemorrhage, unspecified Status: Acute (7) Major neurocognitive disorder as late effect of traumatic brain injury with behavioral disturbance ICD Code: S06.9X9S - Unspecified intracranial injury with loss of consciousness of unspecified duration, sequela; F02.81 - Dementia in other diseases classified elsewhere with behavioral disturbance Status: Acute (8) Encephalopathy ICD Code: G93.40 - Encephalopathy, unspecified Status: Acute (9) Sepsis ICD Code: A41.9 - Sepsis, unspecified organism Status: Resolved (10) Pneumonia ICD Code: J18.9 - Pneumonia, unspecified organism Status: Acute (11) Protein-calorie malnutrition, mild ICD Code: E44.1 - Mild protein-calorie malnutrition Status: Acute (12) Acute respiratory failure with hypoxia and hypercarbia ICD Code: J96.01 - Acute respiratory failure with hypoxia; J96.02 - Acute respiratory failure with hypercapnia Status: Acute Assessment and Plan Mr. Nunez is a 51 year old male who was brought to the hospital as a trauma alert due to head injury after he fell in the bathroom and hit his head. Patient was unresponsive for approximately 15 minutes by the time ambulance services arrived. His mentation waxed and waned with GCS ranging from [address] head indicated subarachnoid hemorrhage, acute. Hallucinations and delusions: endorsed by pt. Continue psychiatric medications. Auditory hallucinations - Psychiatry consulted - Continues to have hallucinations but patients behavior has been much improved with Seroquel use. - Continue to monitor with ADLs -Seroquel; 200 mg BID Intracranial hemorrhage, status post basilar artery coiling 10/05, Status post OBSTETRICS GYN PHYSICIAN shunt on 11/24/2016 Chronic encephalopathy Hydrocephalus Cortical blindness - Neurology signed off. Neuropsychology following patient ultimately for discharge placement and assistance with recommendations. Per neuropsych note, ongoing areas of concern include behavioral impulsivity, lack of insight and judgement. - Speech therapy recommends regular diet with thin liquids, Patient is eating well. PEG dc'd 01/08/17. - Continue Seroquel 100mg BID per psychiatry HTN - controlled - continue on Norvasc 5mg daily and Labetalol 100mg q8h Acute hypoxic hypercarbic respiratory failure, resolved - Tracheostomy 10/23/16, removed, old trach site healed. - Monitor respiratory status - 95% on RA C. difficile colitis, resolved - Completed Flagyl on 10/23 - No diarrhea reported - off Lactinex since 02/11/17 Hypokalemia, resolved - Continue scheduled KCL 40 meq PO daily. - Follow and replace as needed. - potassium levels stable DVT prophylaxis: SCDs, YOUSIF hose, Lovenox. Ambulation. GI prophylaxis: Protonix. Discussed with patient, nursing staff and Dr. James Discharge Planning Discharge planning ongoing. CM continues to address funding and placement issue. Pending SSI. Problem Qualifiers (1) Hypertension: Manolo Alvarez Jr. Feb 24, 2017 15:05
[2017-02-24] MEDS: ENOXAPARIN SODIUM 40 MG/0.4 ML SYRINGE SQ SCH (20:10)
[2017-02-25] VITALS: BP 121/70; PULSE 77; RESP 18; TEMP 97.8; O2SAT 100
[2017-02-25 04:00] VITALS: BP 124/74; PULSE 18; RESP 18; TEMP 97.3; O2SAT 100
[2017-02-25] MEDS: LABETALOL HCL 100 MG TAB PO SCH ×3 (04:51→20:24)
[2017-02-25 08:00] VITALS: BP 115/73; PULSE 80; RESP 18; TEMP 97.3; O2SAT 94
[2017-02-25] MEDS: amLODIPine BESYLATE 5 MG TAB PO SCH (09:09)
[2017-02-25] MEDS: PRAVASTATIN SOD 40 MG TAB PO SCH (09:09)
[2017-02-25] MEDS: POTASSIUM CHLORIDE 20 MEQ CONTROLLED RELEASE TAB PO SCH (09:09)
[2017-02-25] MEDS: DOCUSATE SODIUM 50 MG/SENNA 8.6 MG TAB PO SCH ×2 (09:10→20:24)
[2017-02-25] MEDS: PANTOPRAZOLE SOD 40 MG DELAYED RELEASE TAB PO SCH (09:10)
[2017-02-25] MEDS: QUEtiapine FUMARATE 100 MG TAB PO SCH ×2 (09:10→11:52)
--- NOTE | 2017-02-25 10:12 | HHI.PR ---
Subjective Remarks Follow-up visit intracranial hemorrhage, basilar tip aneurysm, Status post WET MACHINE OPERATOR shunt. Pt seen and examined. Pt reported poor sleep last night. Pt asked about the "little man" in pt's head". Pt today stated the "man" speaks to him and "helps me do things." Pt denied the "man" is critical of pt. Pt reported back ache this morning and had recently taken "an Advil" for the pain. No other issues noted or reported by pt. He denied fever, cough, shortness of breath, chest/abdominal/back pain, NVD. Per RN Giovana) pt without issues overnight or since start of shift. Objective Vitals Vital Signs Date Time Temp Pulse Resp B/P (MAP) Pulse Ox O2 Delivery O2 Flow Rate FiO2 02/25/17 08:00 97.3 80 18 115/73 (87) 94 02/25/17 04:00 97.3 18 18 124/74 (91) 100 02/25/17 00:00 97.8 77 18 121/70 (87) 100 02/24/17 20:00 97.4 81 18 93/57 (69) 100 02/24/17 17:01 97.9 68 18 116/67 (83) 95 02/24/17 12:41 97.3 97 18 121/80 (94) 95 I/O 02/24/17 02/24/17 02/24/17 02/25/17 02/25/17 02/25/17 06:59 14:59 22:59 06:59 14:59 22:59 Intake Total 594 ml Balance 594 ml Intake Oral 594 ml # Voids 6 3 3 # Bowel Movements 1 Result Diagram: 02/24/1782702/24/17827 Objective Remarks GENERAL: Pt encountered laying a bed, awake and alert SKIN: Warm and dry. Tattoos noted. HEAD: Normocephalic. EYES: No scleral icterus. No injection or drainage. NECK: Supple, trachea midline. No lymphadenopathy. CARDIOVASCULAR: Regular rate and rhythm without murmurs, gallops, or rubs. RESPIRATORY: Breath sounds equal bilaterally. No accessory muscle use. GASTROINTESTINAL: Abdomen soft, non-tender, nondistended. Bowel sounds present in all quadrants. MUSCULOSKELETAL: No cyanosis, or edema. PSYCHIATRIC: Pt alert and oriented to self only. Reported "I can't name the city" when asked about the current city. He stated he was in [place] and stated the year was 1994. Pt said he was raised in [place] (though he could not recall the name of his home town and moved to [place] when "I was 16." Pt was pleasant and cooperative. Procedures 10/05/16 right frontal twist drill for ventriculostomy placement 10/20/16 arterial line placement 10/23/16 bedside percutaneous tracheostomy under direct bronchoscopic visualization 10/24/16 PEG tube placement at bedside Medications and IVs Current Medications Medications (Trade) Dose Ordered Sig/Nava Route Start Time Stop Time Status Last Admin (Tylenol) 650 mg Q6H PRN PO 10/05/16 02:45 02/23/17 17:02 (Zofran Inj) 4 mg Q6H PRN IV 10/05/16 02:45 11/27/16 23:26 Miscellaneous Information 1 Q361D XX 10/05/16 02:45 10/05/16 02:45 (Pravachol) 40 mg DAILY PO 10/05/16 09:00 02/25/17 09:09 (Lovenox Inj) 40 mg Q24H SQ 10/23/16 21:00 Future hold 02/24/17 20:10 (Trandate) 100 mg Q8H PO 11/03/16 20:00 02/25/17 04:51 (Norvasc) 5 mg DAILY PO 11/04/16 09:00 02/25/17 09:09 (Imodium) 2 mg UNSCH PRN PO 11/09/16 09:45 11/29/16 12:57 (Lomotil Tab) 1 tab Q6H PRN PO 11/09/16 09:45 (Lactulose Liq) 30 ml QID PRN PO 12/09/16 13:45 (Protonix) 40 mg DAILY PO 12/16/16 09:00 02/25/17 09:10 (Benadryl) 50 mg Q6H PRN PO 12/20/16 17:45 02/22/17 19:36 (Colace) 100 mg Q12H PRN PO 02/12/17 00:15 (Duoneb Neb) 1 ampule Q4HR NEB PRN INH 02/12/17 12:00 (KCl) 40 meq DAILY PO 02/13/17 09:00 02/25/17 09:09 (Otnie-Colace) 1 tab BID PO 02/18/17 09:30 02/25/17 09:10 (SEROquel) 200 mg BID@09,12 PO 02/24/17 09:00 02/25/17 09:10 Urinary Catheter: No A/P Problem List: (1) 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 ICD Code: I60.8 - Other nontraumatic subarachnoid hemorrhage Status: Acute (2) Hypertension ICD Code: I10 - Essential (primary) hypertension Status: Chronic (3) Major neurocognitive disorder due to vascular disease, without behavioral disturbance, severe ICD Code: F01.50 - Vascular dementia without behavioral disturbance Status: Acute (4) Septic shock ICD Code: A41.9 - Sepsis, unspecified organism; R65.21 - Severe sepsis with septic shock Status: Resolved (5) Hydrocephalus ICD Code: G91.9 - Hydrocephalus, unspecified Status: Acute (6) Intracranial hemorrhage ICD Code: I62.9 - Nontraumatic intracranial hemorrhage, unspecified Status: Acute (7) Major neurocognitive disorder as late effect of traumatic brain injury with behavioral disturbance ICD Code: S06.9X9S - Unspecified intracranial injury with loss of consciousness of unspecified duration, sequela; F02.81 - Dementia in other diseases classified elsewhere with behavioral disturbance Status: Acute (8) Encephalopathy ICD Code: G93.40 - Encephalopathy, unspecified Status: Acute (9) Sepsis ICD Code: A41.9 - Sepsis, unspecified organism Status: Resolved (10) Pneumonia ICD Code: J18.9 - Pneumonia, unspecified organism Status: Acute (11) Protein-calorie malnutrition, mild ICD Code: E44.1 - Mild protein-calorie malnutrition Status: Acute (12) Acute respiratory failure with hypoxia and hypercarbia ICD Code: J96.01 - Acute respiratory failure with hypoxia; J96.02 - Acute respiratory failure with hypercapnia Status: Acute Assessment and Plan Mr. Nunez is a 51 year old male who was brought to the hospital as a trauma alert due to head injury after he fell in the bathroom and hit his head. Patient was unresponsive for approximately 15 minutes by the time ambulance services arrived. His mentation waxed and waned with GCS ranging from [address] head indicated subarachnoid hemorrhage, acute. Hallucinations and delusions: continues to be endorsed by pt. Continue psychiatric medications. Hypertension: continues to be controlled with current medication regimen. Auditory hallucinations - Psychiatry consulted - Continues to have hallucinations but patients behavior has been much improved with Seroquel use. - Continue to monitor with ADLs -Seroquel; 200 mg BID Intracranial hemorrhage, status post basilar artery coiling 10/05, Status post WET MACHINE OPERATOR shunt on 11/24/2016 Chronic encephalopathy Hydrocephalus Cortical blindness - Neurology signed off. Neuropsychology following patient ultimately for discharge placement and assistance with recommendations. Per neuropsych note, ongoing areas of concern include behavioral impulsivity, lack of insight and judgement. - Speech therapy recommends regular diet with thin liquids, Patient is eating well. PEG dc'd 01/08/17. - Continue Seroquel 100mg BID per psychiatry HTN - controlled - continue on Norvasc 5mg daily and Labetalol 100mg q8h Acute hypoxic hypercarbic respiratory failure, resolved - Tracheostomy 10/23/16, removed, old trach site healed. - Monitor respiratory status - 95% on RA C. difficile colitis, resolved - Completed Flagyl on 10/23 - No diarrhea reported - off Lactinex since 02/11/17 Hypokalemia, resolved - Continue scheduled KCL 40 meq PO daily. - Follow and replace as needed. - potassium levels stable DVT prophylaxis: SCDs, YOUSIF hose, Lovenox. Ambulation. GI prophylaxis: Protonix. Discussed with patient, nursing staff and Dr. Gibbs Discharge Planning CM notes reviewed. Discharge planning ongoing. CM continues to address funding and placement issue. Pending SSI. CM notes indicates working with family to address financial and placement issues. Problem Qualifiers (1) Hypertension: Manolo Alvarez Jr. Feb 25, 2017 10:12
[2017-02-25 12:00] VITALS: BP 112/62; PULSE 72; RESP 19; TEMP 97; O2SAT 96
[2017-02-25 16:00] VITALS: BP 134/71; PULSE 76; RESP 18; TEMP 98.2; O2SAT 97
[2017-02-25] MEDS: ENOXAPARIN SODIUM 40 MG/0.4 ML SYRINGE SQ SCH (20:25)
[2017-02-25 21:02] VITALS: BP 136/65; PULSE 89; RESP 18; TEMP 98; O2SAT 100
[2017-02-26 00:38] VITALS: BP 126/70; PULSE 85; RESP 18; TEMP 98.1; O2SAT 100
[2017-02-26] MEDS: LABETALOL HCL 100 MG TAB PO SCH ×3 (05:20→21:02)
[2017-02-26 08:00] VITALS: BP 125/77; PULSE 76; RESP 18; TEMP 98.1; O2SAT 94
[2017-02-26] MEDS: DOCUSATE SODIUM 50 MG/SENNA 8.6 MG TAB PO SCH ×2 (08:34→21:02)
[2017-02-26] MEDS: PRAVASTATIN SOD 40 MG TAB PO SCH (08:34)
[2017-02-26] MEDS: POTASSIUM CHLORIDE 20 MEQ CONTROLLED RELEASE TAB PO SCH (08:34)
[2017-02-26] MEDS: QUEtiapine FUMARATE 100 MG TAB PO SCH ×2 (08:34→12:00)
[2017-02-26] MEDS: amLODIPine BESYLATE 5 MG TAB PO SCH (08:34)
[2017-02-26] MEDS: PANTOPRAZOLE SOD 40 MG DELAYED RELEASE TAB PO SCH (08:34)
[2017-02-26] MEDS: ACETAMINOPHEN 325 MG TAB PO PRN (09:52)
[2017-02-26 12:00] VITALS: BP 111/72; PULSE 80; RESP 18; TEMP 98.7; O2SAT 94
--- NOTE | 2017-02-26 13:46 | HHI.PR ---
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 Pt seen and examined. Pt reported adequate sleep last night. This morning he reproted there was a "snake in the line between your people and mine." Pt could not state where the "snake" was located "just that its there." Pt was asked about the "little man" in pt's head". Pt today stated the "man" was asleep and not "directing me to do anything." He stated in the past the "man " wanted " some of us that were connected to him to get something for him really fast." When to clarify, pt stated he was being asked to "get him a car." Pt denied back pain this morning put said he felt discomfort uin his left elbow and had "metal in the back of my left leg." Pt noted the metal "hadn't been there before." No other issues noted or reported by pt. He denied fever, cough, shortness of breath, chest/abdominal/back pain, NVD. Per RN (Piero) pt without issues overnight or since start of shift. Objective Vitals Vital Signs Date Time Temp Pulse Resp B/P (MAP) Pulse Ox O2 Delivery O2 Flow Rate FiO2 02/26/17 12:00 98.7 80 18 111/72 (85) 94 02/26/17 08:00 98.1 76 18 125/77 (93) 94 02/26/17 00:38 98.1 85 18 126/70 (88) 100 02/25/17 21:02 98.0 89 18 136/65 (88) 100 02/25/17 16:00 98.2 76 18 134/71 (92) 97 I/O 02/25/17 02/25/17 02/25/17 02/26/17 02/26/17 02/26/17 06:59 14:59 22:59 06:59 14:59 22:59 Intake Total 480 ml Balance 480 ml Intake Oral 480 ml # Voids 3 5 # Bowel Movements 1 Result Diagram: 02/24/1782702/24/17827 Objective Remarks GENERAL: Pt encountered laying a bed, awake and alert SKIN: Warm and dry. Tattoos noted. HEAD: Normocephalic. EYES: No scleral icterus. No injection or drainage. NECK: Supple, trachea midline. No lymphadenopathy. CARDIOVASCULAR: Regular rate and rhythm without murmurs, gallops, or rubs. RESPIRATORY: Breath sounds equal bilaterally. No accessory muscle use. GASTROINTESTINAL: Abdomen soft, non-tender, nondistended. Bowel sounds present in all quadrants. MUSCULOSKELETAL: No cyanosis, or edema. PSYCHIATRIC: Pt alert and oriented to self only. Reported being in "[place], [place]" and the year was "2001". Pt was pleasant and cooperative. Procedures 10/05/16 right frontal twist drill for ventriculostomy placement 10/20/16 arterial line placement 10/23/16 bedside percutaneous tracheostomy under direct bronchoscopic visualization 10/24/16 PEG tube placement at bedside Medications and IVs Current Medications Medications (Trade) Dose Ordered Sig/Nava Route Start Time Stop Time Status Last Admin (Tylenol) 650 mg Q6H PRN PO 10/05/16 02:45 02/26/17 09:52 (Zofran Inj) 4 mg Q6H PRN IV 10/05/16 02:45 11/27/16 23:26 Miscellaneous Information 1 Q361D XX 10/05/16 02:45 10/05/16 02:45 (Pravachol) 40 mg DAILY PO 10/05/16 09:00 02/26/17 08:34 (Lovenox Inj) 40 mg Q24H SQ 10/23/16 21:00 Future hold 02/25/17 20:25 (Trandate) 100 mg Q8H PO 11/03/16 20:00 02/26/17 05:20 (Norvasc) 5 mg DAILY PO 11/04/16 09:00 02/26/17 08:34 (Imodium) 2 mg UNSCH PRN PO 11/09/16 09:45 11/29/16 12:57 (Lomotil Tab) 1 tab Q6H PRN PO 11/09/16 09:45 (Lactulose Liq) 30 ml QID PRN PO 12/09/16 13:45 (Protonix) 40 mg DAILY PO 12/16/16 09:00 02/26/17 08:34 (Benadryl) 50 mg Q6H PRN PO 12/20/16 17:45 02/22/17 19:36 (Colace) 100 mg Q12H PRN PO 02/12/17 00:15 (Duoneb Neb) 1 ampule Q4HR NEB PRN INH 02/12/17 12:00 (KCl) 40 meq DAILY PO 02/13/17 09:00 02/26/17 08:34 (Tonie-Colace) 1 tab BID PO 02/18/17 09:30 02/26/17 08:34 (SEROquel) 200 mg BID@09,12 PO 02/24/17 09:00 02/26/17 08:34 Urinary Catheter: No A/P Problem List: (1) 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 ICD Code: I60.8 - Other nontraumatic subarachnoid hemorrhage Status: Acute (2) Hypertension ICD Code: I10 - Essential (primary) hypertension Status: Chronic (3) Major neurocognitive disorder due to vascular disease, without behavioral disturbance, severe ICD Code: F01.50 - Vascular dementia without behavioral disturbance Status: Acute (4) Septic shock ICD Code: A41.9 - Sepsis, unspecified organism; R65.21 - Severe sepsis with septic shock Status: Resolved (5) Hydrocephalus ICD Code: G91.9 - Hydrocephalus, unspecified Status: Acute (6) Intracranial hemorrhage ICD Code: I62.9 - Nontraumatic intracranial hemorrhage, unspecified Status: Acute (7) Major neurocognitive disorder as late effect of traumatic brain injury with behavioral disturbance ICD Code: S06.9X9S - Unspecified intracranial injury with loss of consciousness of unspecified duration, sequela; F02.81 - Dementia in other diseases classified elsewhere with behavioral disturbance Status: Acute (8) Encephalopathy ICD Code: G93.40 - Encephalopathy, unspecified Status: Acute (9) Sepsis ICD Code: A41.9 - Sepsis, unspecified organism Status: Resolved (10) Pneumonia ICD Code: J18.9 - Pneumonia, unspecified organism Status: Acute (11) Protein-calorie malnutrition, mild ICD Code: E44.1 - Mild protein-calorie malnutrition Status: Acute (12) Acute respiratory failure with hypoxia and hypercarbia ICD Code: J96.01 - Acute respiratory failure with hypoxia; J96.02 - Acute respiratory failure with hypercapnia Status: Acute Assessment and Plan Mr. Nunez is a 51 year old male who was brought to the hospital as a trauma alert due to head injury after he fell in the bathroom and hit his head. Patient was unresponsive for approximately 15 minutes by the time ambulance services arrived. His mentation waxed and waned with GCS ranging from [address] head indicated subarachnoid hemorrhage, acute. Hallucinations and delusions: continue to be endorsed by pt. Continue psychiatric medications. Psychotic process vs. confabulation. Will reconsult psychiatry. Auditory hallucinations - Psychiatry consulted - Continues to have hallucinations but patients behavior has been much improved with Seroquel use. - Continue to monitor with ADLs -Seroquel; 200 mg BID Intracranial hemorrhage, status post basilar artery coiling 10/05, Status post SENIOR INVESTMENT ANALYST shunt on 11/24/2016 Chronic encephalopathy Hydrocephalus Cortical blindness - Neurology signed off. Neuropsychology following patient ultimately for discharge placement and assistance with recommendations. Per neuropsych note, ongoing areas of concern include behavioral impulsivity, lack of insight and judgement. - Speech therapy recommends regular diet with thin liquids, Patient is eating well. PEG dc'd 01/08/17. - Continue Seroquel 100mg BID per psychiatry HTN - controlled - continue on Norvasc 5mg daily and Labetalol 100mg q8h Acute hypoxic hypercarbic respiratory failure, resolved - Tracheostomy 10/23/16, removed, old trach site healed. - Monitor respiratory status - 95% on RA C. difficile colitis, resolved - Completed Flagyl on 10/23 - No diarrhea reported - off Lactinex since 02/11/17 Hypokalemia, resolved - Continue scheduled KCL 40 meq PO daily. - Follow and replace as needed. - potassium levels stable DVT prophylaxis: SCDs, YOUSIF hose, Lovenox. Ambulation. GI prophylaxis: Protonix. Discussed with patient, nursing staff and Dr. Gibbs Discharge Planning CM notes reviewed. Discharge planning ongoing. CM continues to address funding and placement issue. Pending SSI. CM notes indicates working with family to address financial and placement issues. Problem Qualifiers (1) Hypertension: Manolo Alvarez Jr. Feb 26, 2017 13:46
[2017-02-26 16:00] VITALS: BP 108/64; PULSE 82; RESP 19; TEMP 96.7; O2SAT 96
[2017-02-26 20:34] VITALS: BP 103/68; PULSE 84; RESP 16; TEMP 98.5; O2SAT 94
[2017-02-26] MEDS: ENOXAPARIN SODIUM 40 MG/0.4 ML SYRINGE SQ SCH (21:02)
[2017-02-27] VITALS (7 sets, daily range): BP systolic 115–131; BP diastolic 69–83; PULSE 83–101; RESP 16–22; TEMP 97.7–98.7; O2SAT 94–96
[2017-02-27] MEDS ORDERED: HALOPERIDOL LACTATE 5 MG/ML AMP IM ONE (03:15)
[2017-02-27] MEDS: LABETALOL HCL 100 MG TAB PO SCH ×3 (03:32→20:31)
[2017-02-27] MEDS: amLODIPine BESYLATE 5 MG TAB PO SCH (09:23)
[2017-02-27] MEDS: QUEtiapine FUMARATE 100 MG TAB PO SCH ×2 (09:23→13:21)
[2017-02-27] MEDS: PANTOPRAZOLE SOD 40 MG DELAYED RELEASE TAB PO SCH (09:23)
[2017-02-27] MEDS: DOCUSATE SODIUM 50 MG/SENNA 8.6 MG TAB PO SCH ×2 (09:23→20:30)
[2017-02-27] MEDS: POTASSIUM CHLORIDE 20 MEQ CONTROLLED RELEASE TAB PO SCH (09:23)
[2017-02-27] MEDS: PRAVASTATIN SOD 40 MG TAB PO SCH (09:23)
--- NOTE | 2017-02-27 10:27 | HHI.PR ---
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 Pt seen and examined. Pt reported poor sleep last night due to "killing 4 people." Pt was asked about the "little man" in his head". Pt today stated the "man" " was quiet this morning" and "not talking to me". Pt denied pain and discomfort this morning. Pt was asked about being and having children; both were denied. Pt stated "at least 8 years are out of my life. Like they were on paper and went into a bag and I don't know what happened." No other issues noted or reported by pt. He denied fever, cough, shortness of breath, chest/abdominal/back pain, NVD. Per RN (Danielle) pt was combative early this morning, "running down the halls and threatening to run out the back door." She stated security was called and pt received 5 mg of Haldol. Objective Vitals Vital Signs Date Time Temp Pulse Resp B/P (MAP) Pulse Ox O2 Delivery O2 Flow Rate FiO2 02/27/17 10:11 96 02/27/17 10:08 95 02/27/17 08:00 98.5 86 16 118/79 (92) 94 02/27/17 04:33 98.7 98 22 119/83 (95) 96 02/27/17 00:34 98.4 83 20 125/79 (94) 95 02/26/17 20:34 98.5 84 16 103/68 (80) 94 02/26/17 16:00 96.7 82 19 108/64 (79) 96 02/26/17 12:00 98.7 80 18 111/72 (85) 94 I/O 02/26/17 02/26/17 02/26/17 02/27/17 02/27/17 02/27/17 06:59 14:59 22:59 06:59 14:59 22:59 Intake Total 1440 ml 720 ml Balance 1440 ml 720 ml Intake Oral 1440 ml 720 ml # Voids 5 3 3 # Bowel Movements 0 0 0 Result Diagram: 02/24/1782702/24/17827 Objective Remarks GENERAL: Pt encountered sitting at observational nurse's station, awake and alert SKIN: Warm and dry. Tattoos noted. HEAD: Normocephalic. EYES: No scleral icterus. No injection or drainage. NECK: Supple, trachea midline. No lymphadenopathy. CARDIOVASCULAR: Regular rate and rhythm without murmurs, gallops, or rubs. RESPIRATORY: Breath sounds equal bilaterally. No accessory muscle use. GASTROINTESTINAL: Abdomen soft, non-tender, nondistended. Bowel sounds present in all quadrants. MUSCULOSKELETAL: No cyanosis, or edema. PSYCHIATRIC: Pt alert and oriented to self only. He was unable to identify the current city. The state is "[place]" and the year is "1993". Pt was pleasant and cooperative.Noted to laugh when speaking about killing 4 people. Procedures 10/05/16 right frontal twist drill for ventriculostomy placement 10/20/16 arterial line placement 10/23/16 bedside percutaneous tracheostomy under direct bronchoscopic visualization 10/24/16 PEG tube placement at bedside Medications and IVs Current Medications Medications (Trade) Dose Ordered Sig/Nava Route Start Time Stop Time Status Last Admin (Tylenol) 650 mg Q6H PRN PO 10/05/16 02:45 02/26/17 09:52 (Zofran Inj) 4 mg Q6H PRN IV 10/05/16 02:45 11/27/16 23:26 Miscellaneous Information 1 Q361D XX 10/05/16 02:45 10/05/16 02:45 (Pravachol) 40 mg DAILY PO 10/05/16 09:00 02/27/17 09:23 (Lovenox Inj) 40 mg Q24H SQ 10/23/16 21:00 Future hold 02/26/17 21:02 (Trandate) 100 mg Q8H PO 11/03/16 20:00 02/27/17 03:32 (Norvasc) 5 mg DAILY PO 11/04/16 09:00 02/27/17 09:23 (Imodium) 2 mg UNSCH PRN PO 11/09/16 09:45 11/29/16 12:57 (Lomotil Tab) 1 tab Q6H PRN PO 11/09/16 09:45 (Lactulose Liq) 30 ml QID PRN PO 12/09/16 13:45 (Protonix) 40 mg DAILY PO 12/16/16 09:00 02/27/17 09:23 (Benadryl) 50 mg Q6H PRN PO 12/20/16 17:45 02/22/17 19:36 (Colace) 100 mg Q12H PRN PO 02/12/17 00:15 (Duoneb Neb) 1 ampule Q4HR NEB PRN INH 02/12/17 12:00 (KCl) 40 meq DAILY PO 02/13/17 09:00 02/27/17 09:23 (Tonie-Colace) 1 tab BID PO 02/18/17 09:30 02/27/17 09:23 (SEROquel) 200 mg BID@09,12 PO 02/24/17 09:00 02/27/17 09:23 Urinary Catheter: No A/P Problem List: (1) 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 ICD Code: I60.8 - Other nontraumatic subarachnoid hemorrhage Status: Acute (2) Hypertension ICD Code: I10 - Essential (primary) hypertension Status: Chronic (3) Major neurocognitive disorder due to vascular disease, without behavioral disturbance, severe ICD Code: F01.50 - Vascular dementia without behavioral disturbance Status: Acute (4) Septic shock ICD Code: A41.9 - Sepsis, unspecified organism; R65.21 - Severe sepsis with septic shock Status: Resolved (5) Hydrocephalus ICD Code: G91.9 - Hydrocephalus, unspecified Status: Acute (6) Intracranial hemorrhage ICD Code: I62.9 - Nontraumatic intracranial hemorrhage, unspecified Status: Acute (7) Major neurocognitive disorder as late effect of traumatic brain injury with behavioral disturbance ICD Code: S06.9X9S - Unspecified intracranial injury with loss of consciousness of unspecified duration, sequela; F02.81 - Dementia in other diseases classified elsewhere with behavioral disturbance Status: Acute (8) Encephalopathy ICD Code: G93.40 - Encephalopathy, unspecified Status: Acute (9) Sepsis ICD Code: A41.9 - Sepsis, unspecified organism Status: Resolved (10) Pneumonia ICD Code: J18.9 - Pneumonia, unspecified organism Status: Acute (11) Protein-calorie malnutrition, mild ICD Code: E44.1 - Mild protein-calorie malnutrition Status: Acute (12) Acute respiratory failure with hypoxia and hypercarbia ICD Code: J96.01 - Acute respiratory failure with hypoxia; J96.02 - Acute respiratory failure with hypercapnia Status: Acute Assessment and Plan Mr. Nunez is a 51 year old male who was brought to the hospital as a trauma alert due to head injury after he fell in the bathroom and hit his head. Patient was unresponsive for approximately 15 minutes by the time ambulance services arrived. His mentation waxed and waned with GCS ranging from [address] head indicated subarachnoid hemorrhage, acute. Hallucinations and delusions: continue to be endorsed by pt. Awaiting psychiatry input. Behavior issue: pt received Haldol 5 mg overnight. Pt did not receive yesterday's noon dose of Seroquel. Auditory hallucinations - Psychiatry consulted - Continues to have hallucinations but patients behavior has been much improved with Seroquel use. 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 Neuropsychology following patient ultimately for discharge placement and assistance with recommendations. Per neuropsych note, ongoing areas of concern include behavioral impulsivity, lack of insight and judgement. - Speech therapy recommends regular diet with thin liquids, Patient is eating well. PEG dc'd 01/08/17. - Continue Seroquel 100mg BID per psychiatry HTN - controlled - continue on Norvasc 5mg daily and Labetalol 100mg q8h Acute hypoxic hypercarbic respiratory failure, resolved - Tracheostomy 10/23/16, removed, old trach site healed. - Monitor respiratory status - 95% on RA C. difficile colitis, resolved - Completed Flagyl on 10/23 - No diarrhea reported - off Lactinex since 02/11/17 Hypokalemia, resolved - Continue scheduled KCL 40 meq PO daily. - Follow and replace as needed. - potassium levels stable DVT prophylaxis: SCDs, YOUSIF hose, Lovenox. Ambulation. GI prophylaxis: Protonix. Discussed with patient, nursing staff and Dr. Gibbs Discharge Planning CM notes reviewed. Discharge planning ongoing. CM continues to address funding and placement issue. Pending SSI. CM notes indicates working with family to address financial and placement issues. Problem Qualifiers (1) Hypertension: Manolo Alvarez Jr. Feb 27, 2017 10:27
--- NOTE | 2017-02-27 16:09 | HHI.PYPN ---
Subjective Remarks *See patient today because it appears she showed some increased signs of psychosis yesterday evening feeling was this small man in his head with auditory hallucinations. I did discuss this with the nursing staff. It appears the patient was drowsy yesterday evening and it did not give his evening dose of Seroquel. This may contributed to this brief psychotic outburst. This also let the patient being given 2 mg of Haldol last night. Today patient is drowsy to arousable calm and cooperative with me stating the voices are just about gone and he feels a little management his head is just about gone. She has states he's been doing well today. For now I would suggest continuing the medications but making an effort to have his medications be given exactly as prescribed. We will continue to follow Review of Systems Except as stated in HPI: all other systems reviewed are Neg Objective Alert: No (drowsy to alert) [place]: Person Mood: Calm Affect: Restricted Memory Intact: Comment (very poor) Hallucinations: Auditory (states decreased today), Visual (states decreased) Delusions: No Delusion Type: Other (difficult to ascertain due to sedation) Suicidal: Ideation (unable to ascertain due to sedation) Homicidal: Ideation (unable to ascertain due to sedation) Insight/Judgment Very poor Labs Date/Time Source Procedure Growth Status 10/20/16 15:32 Blood Peripheral Aerobic Blood Culture - Final NO GROWTH IN 5 DAYS Complete 10/20/16 15:32 Blood Peripheral Anaerobic Blood Culture - Final NO GROWTH IN 5 DAYS Complete 11/24/16 16:25 Cerebral Spinal Fluid Shunt Fluid Gram Stain - Final Complete 11/24/16 16:25 CSF Culture - Final Viridans Streptococcus Grp Complete 10/28/16 22:00 Sputum Endotracheal Gram Stain - Final Complete 10/28/16 22:00 Sputum Culture - Final Enterobacter Cloacae Complete 11/14/16 06:00 Urine Clean Catch Urine Culture - Final NO GROWTH IN 48 HOURS. Complete Vitals/IOs Vital Signs Date Time Temp Pulse Resp B/P (MAP) Pulse Ox O2 Delivery O2 Flow Rate FiO2 02/27/17 12:00 101 16 115/75 (88) 95 02/27/17 08:00 98.5 Intake and Output 02/27/17 02/27/17 02/28/17 08:00 16:00 00:00 Intake Total 600 ml Balance 600 ml Assessment & Plan Problem List: (1) Major neurocognitive disorder due to vascular disease, without behavioral disturbance, severe ICD Codes: F01.50 - Vascular dementia without behavioral disturbance Status: Acute Assessment & Plan Estimated LOS: days now would suggest continuing medication no change but being cognizant of the fact that is necessary to give the medication as prescribed Justification for Cont. Inpt. At this time patient would significantly decompensate if placed in the lower level of care Discharge Planning To be determined Tim Mccormick MD Feb 27, 2017 16:09
[2017-02-27] MEDS: ENOXAPARIN SODIUM 40 MG/0.4 ML SYRINGE SQ SCH (20:31)
[2017-02-28 01:07] VITALS: BP 122/74; PULSE 75; RESP 20; TEMP 98.3; O2SAT 93
[2017-02-28] MEDS: LABETALOL HCL 100 MG TAB PO SCH ×3 (03:59→21:01)
[2017-02-28 05:45] VITALS: BP 115/73; PULSE 76; RESP 20; TEMP 98.2; O2SAT 94
[2017-02-28 08:10] VITALS: BP 123/72; PULSE 76; RESP 20; TEMP 98.3; O2SAT 95
[2017-02-28] MEDS: amLODIPine BESYLATE 5 MG TAB PO SCH (09:06)
[2017-02-28] MEDS: PRAVASTATIN SOD 40 MG TAB PO SCH (09:06)
[2017-02-28] MEDS: DOCUSATE SODIUM 50 MG/SENNA 8.6 MG TAB PO SCH ×2 (09:06→21:02)
[2017-02-28] MEDS: PANTOPRAZOLE SOD 40 MG DELAYED RELEASE TAB PO SCH (09:07)
[2017-02-28] MEDS: QUEtiapine FUMARATE 100 MG TAB PO SCH ×2 (09:07→12:07)
[2017-02-28] MEDS: POTASSIUM CHLORIDE 20 MEQ CONTROLLED RELEASE TAB PO SCH (09:07)
[2017-02-28 12:08] VITALS: BP 114/68; PULSE 76; RESP 20; TEMP 98.2; O2SAT 94
--- NOTE | 2017-02-28 13:22 | HHI.PR ---
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 Patient seen and examined today. Patient denies any complaints. No issues overnight per nursing staff. He denies any fever, chills, SOB, cough, chest pain, N/V or abdominal pain. Objective Vitals Vital Signs Date Time Temp Pulse Resp B/P (MAP) Pulse Ox O2 Delivery O2 Flow Rate FiO2 02/28/17 12:08 98.2 76 20 114/68 (83) 94 02/28/17 08:10 98.3 76 20 123/72 (89) 95 02/28/17 05:45 98.2 76 20 115/73 (87) 94 02/28/17 01:07 98.3 75 20 122/74 (90) 93 02/27/17 20:36 97.7 84 20 131/69 (89) 94 I/O 02/27/17 02/27/17 02/27/17 02/28/17 02/28/17 02/28/17 06:59 14:59 22:59 06:59 14:59 22:59 Intake Total 600 ml 0 ml Balance 600 ml 0 ml Intake Oral 600 ml IV Total 0 ml # Voids 3 1 1 1 # Bowel Movements 0 Result Diagram: 02/24/1782702/24/17827 Imaging Last Impressions Chest X-Ray 02/18/17 0000 Signed Impressions: Service Date/Time: Saturday, February 18, 2017 10:51 - CONCLUSION: Diminished lung volumes. No infiltrate. Tyrese Raymond MD Abdomen X-Ray 02/18/17 0000 Signed Impressions: Service Date/Time: Saturday, February 18, 2017 10:56 - CONCLUSION: Unremarkable abdomen. Tyrese Raymond MD Gall Bladder Ultrasound 02/17/17 0000 Signed Impressions: Service Date/Time: Friday, February 17, 2017 17:45 - CONCLUSION: Mildly enlarged liver and small amount of gallbladder sludge. Tim Hammonds MD Head CT 12/09/16 0000 Signed Impressions: Service Date/Time: Friday, December 09, 2016 17:36 - CONCLUSION: 1. Right ventriculostomy tube remains in place with decrease in ventricular size since November 24. There is some encephalomalacia around the shunt and a probable small infarct in the left basal ganglia. No new hemorrhage or shift. Tip Harris MD Transcranial Doppler Study Complete 10/26/16 0700 Signed Impressions: Service Date/Time: Wednesday, October 26, 2016 08:20 - CONCLUSION: Minimal interval improvement with no evidence for vasospasm. Christian Song MD FACR Neck CTA 10/19/16 0000 Signed Impressions: Service Date/Time: Wednesday, October 19, 2016 14:19 - CONCLUSION: Negative for dissection or significant stenosis. Christian Song MD FACR Head CTA 10/19/16 0000 Signed Impressions: Service Date/Time: Wednesday, October 19, 2016 14:19 - CONCLUSION: 1. Interval development of significant vasospasm in the left MCA and SRI territories. 2. Mild vasospasm in the basilar artery.. Gume Mckeon MD Cerebral Arteriogram 10/19/16 0000 Signed Impressions: Service Date/Time: Wednesday, October 19, 2016 16:06 - CONCLUSION: 1. Vasospasm in the left MCA and SRI territories 2. Spasmolytic infusion, left internal carotid artery as above.. 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 Gume Mckeon MD Pelvis X-Ray 10/05/16109 Signed Impressions: Service Date/Time: Wednesday, October 05, 2016 01:22 - CONCLUSION: Unremarkable examination of the pelvis. Ruben Acuña Jr., MD Chest CT 10/05/16109 Signed Impressions: Service Date/Time: Wednesday, October 05, 2016 01:46 - CONCLUSION: 1. No acute intrathoracic abnormality. 2. Bibasilar atelectasis. 3. Cardiomegaly. 4. Prior granulomatous disease. Ruben Acuña Jr., MD Cervical Spine CT 10/05/16109 Signed Impressions: Service Date/Time: Wednesday, October 05, 2016 01:40 - CONCLUSION: 1. No fracture or dislocation. 2. Multilevel degenerative changes. Ruben Acuña Jr., MD Abdomen/Pelvis CT 10/05/16109 Signed Impressions: Service Date/Time: Wednesday, October 05, 2016 01:46 - CONCLUSION: 1. No acute trauma. 2. Rounded area of decreased density involving the pancreatic head. I cannot completely exclude pancreatic head mass. At some point MRI of the pancreas is suggested to further evaluate. 3. Focal area of poor enhancement involving the left kidney. This may relate to an area of parenchymal scarring. I cannot completely exclude a mass. This can be further assessed with MRI as well. Ruben Acuña Jr., MD Objective Remarks GENERAL: Well-nourished, well-developed male patient, in no apparent distress. Awake and alert. Sitting up at nurses station eating breakfast. SKIN: No rash. Warm and dry. HEENT: Normocephalic. Extraocular motions intact. No scleral icterus. No injection or drainage. Nose without bleeding. MMM. Airway patent. NECK: Trachea midline. Supple. CARDIOVASCULAR: RRR. No murmur appreciated. RESPIRATORY: Nonlabored. Clear to auscultation. Breath sounds equal bilaterally. No wheezes, rales, or rhonchi. GASTROINTESTINAL: Abdomen soft, nondistended and nontender. BS x 4. MUSCULOSKELETAL: Extremities without clubbing, cyanosis, or edema. NEUROLOGICAL: Awake and alert. Oriented to self only. Moves all 4 extremities spontaneously. Motor and sensory function grossly intact. Normal speech. Procedures 10/05/16 right frontal twist drill for ventriculostomy placement 10/20/16 arterial line placement 10/23/16 bedside percutaneous tracheostomy under direct bronchoscopic visualization 10/24/16 PEG tube placement at bedside Medications and IVs Current Medications Medications (Trade) Dose Ordered Sig/Nava Route Start Time Stop Time Status Last Admin (Tylenol) 650 mg Q6H PRN PO 10/05/16 02:45 02/26/17 09:52 (Zofran Inj) 4 mg Q6H PRN IV 10/05/16 02:45 11/27/16 23:26 Miscellaneous Information 1 Q361D XX 10/05/16 02:45 10/05/16 02:45 (Pravachol) 40 mg DAILY PO 10/05/16 09:00 02/28/17 09:06 (Lovenox Inj) 40 mg Q24H SQ 10/23/16 21:00 Future hold 02/27/17 20:31 (Trandate) 100 mg Q8H PO 11/03/16 20:00 02/28/17 12:07 (Norvasc) 5 mg DAILY PO 11/04/16 09:00 02/28/17 09:06 (Imodium) 2 mg UNSCH PRN PO 11/09/16 09:45 11/29/16 12:57 (Lomotil Tab) 1 tab Q6H PRN PO 11/09/16 09:45 (Lactulose Liq) 30 ml QID PRN PO 12/09/16 13:45 (Protonix) 40 mg DAILY PO 12/16/16 09:00 02/28/17 09:07 (Benadryl) 50 mg Q6H PRN PO 12/20/16 17:45 02/22/17 19:36 (Colace) 100 mg Q12H PRN PO 02/12/17 00:15 (Duoneb Neb) 1 ampule Q4HR NEB PRN INH 02/12/17 12:00 (KCl) 40 meq DAILY PO 02/13/17 09:00 02/28/17 09:07 (Tonie-Colace) 1 tab BID PO 02/18/17 09:30 02/28/17 09:06 (SEROquel) 200 mg BID@09,12 PO 02/24/17 09:00 02/28/17 12:07 A/P Problem List: (1) 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 ICD Code: I60.8 - Other nontraumatic subarachnoid hemorrhage Status: Acute (2) Hypertension ICD Code: I10 - Essential (primary) hypertension Status: Chronic (3) Major neurocognitive disorder due to vascular disease, without behavioral disturbance, severe ICD Code: F01.50 - Vascular dementia without behavioral disturbance Status: Acute (4) Septic shock ICD Code: A41.9 - Sepsis, unspecified organism; R65.21 - Severe sepsis with septic shock Status: Resolved (5) Hydrocephalus ICD Code: G91.9 - Hydrocephalus, unspecified Status: Acute (6) Intracranial hemorrhage ICD Code: I62.9 - Nontraumatic intracranial hemorrhage, unspecified Status: Acute (7) Major neurocognitive disorder as late effect of traumatic brain injury with behavioral disturbance ICD Code: S06.9X9S - Unspecified intracranial injury with loss of consciousness of unspecified duration, sequela; F02.81 - Dementia in other diseases classified elsewhere with behavioral disturbance Status: Acute (8) Encephalopathy ICD Code: G93.40 - Encephalopathy, unspecified Status: Acute (9) Sepsis ICD Code: A41.9 - Sepsis, unspecified organism Status: Resolved (10) Pneumonia ICD Code: J18.9 - Pneumonia, unspecified organism Status: Acute (11) Protein-calorie malnutrition, mild ICD Code: E44.1 - Mild protein-calorie malnutrition Status: Acute (12) Acute respiratory failure with hypoxia and hypercarbia ICD Code: J96.01 - Acute respiratory failure with hypoxia; J96.02 - Acute respiratory failure with hypercapnia Status: Acute Assessment and Plan Mr. Nunez is a 51 year old male who was brought to the hospital as a trauma alert due to head injury after he fell in the bathroom and hit his head. Patient was unresponsive for approximately 15 minutes by the time ambulance services arrived. His mentation waxed and waned with GCS ranging from [address] head indicated subarachnoid hemorrhage, acute. 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 Neuropsychology following patient ultimately for discharge placement and assistance with recommendations. Per neuropsych note, ongoing areas of concern include behavioral impulsivity, lack of insight and judgement. - Speech therapy recommends regular diet with thin liquids. Patient is eating well. PEG dc'd 01/08/17. - Continue Seroquel 100mg BID per psychiatry HTN - controlled - continue on Norvasc 5mg daily and Labetalol 100mg q8h Acute hypoxic hypercarbic respiratory failure, resolved - Tracheostomy 10/23/16, removed, old trach site healed. - Monitor respiratory status - 95% on RA C. difficile colitis, resolved - Completed Flagyl on 10/23 - No diarrhea reported - off Lactinex Hypokalemia, resolved - Continue scheduled KCL 40 meq PO daily. - Follow and replace as needed. - potassium levels stable - monitor intermittenly DVT prophylaxis: SCDs, YOUSIF hose, Lovenox. Ambulation. GI prophylaxis: Protonix. Discussed with patient, nursing staff and Dr. Gibbs Discharge Planning Discharge planning ongoing. CM continues to address funding and placement issue. Pending SSI. Problem Qualifiers (1) Hypertension: Debra Krause Feb 28, 2017 13:22
[2017-02-28 16:06] VITALS: BP 103/65; PULSE 78; RESP 20; TEMP 98.2; O2SAT 96
[2017-02-28 20:59] VITALS: BP 108/60; PULSE 83; RESP 15; TEMP 98.7; O2SAT 95
[2017-02-28] MEDS: ENOXAPARIN SODIUM 40 MG/0.4 ML SYRINGE SQ SCH (21:02)
[2017-03-01 01:28] VITALS: BP 109/69; PULSE 76; RESP 18; TEMP 97.7; O2SAT 93
[2017-03-01] MEDS: LABETALOL HCL 100 MG TAB PO SCH ×3 (04:20→21:24)
[2017-03-01 05:21] VITALS: BP 121/74; PULSE 69; RESP 18; TEMP 97.5; O2SAT 92
[2017-03-01 08:24] VITALS: BP 130/84; PULSE 80; RESP 20; TEMP 97.6; O2SAT 95
[2017-03-01] MEDS: amLODIPine BESYLATE 5 MG TAB PO SCH (09:24)
[2017-03-01] MEDS: DOCUSATE SODIUM 50 MG/SENNA 8.6 MG TAB PO SCH ×2 (09:24→21:25)
[2017-03-01] MEDS: POTASSIUM CHLORIDE 20 MEQ CONTROLLED RELEASE TAB PO SCH (09:24)
[2017-03-01] MEDS: QUEtiapine FUMARATE 100 MG TAB PO SCH ×2 (09:24→12:16)
[2017-03-01] MEDS: PANTOPRAZOLE SOD 40 MG DELAYED RELEASE TAB PO SCH (09:24)
[2017-03-01] MEDS: PRAVASTATIN SOD 40 MG TAB PO SCH (09:24)
--- NOTE | 2017-03-01 09:27 | HHI.PR ---
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 Patient seen and examined today. Patient reports total body pain. Appears comfortable sitting at nurses station. Discussed with RN, no acute issues. Objective Vitals Vital Signs Date Time Temp Pulse Resp B/P (MAP) Pulse Ox O2 Delivery O2 Flow Rate FiO2 03/01/17 08:24 97.6 80 20 130/84 (99) 95 03/01/17 05:21 97.5 69 18 121/74 (90) 92 03/01/17 01:28 97.7 76 18 109/69 (82) 93 02/28/17 20:59 98.7 83 15 108/60 (76) 95 02/28/17 16:06 98.2 78 20 103/65 (78) 96 02/28/17 12:08 98.2 76 20 114/68 (83) 94 I/O 02/28/17 02/28/17 02/28/17 03/01/17 03/01/17 03/01/17 07:00 15:00 23:00 07:00 15:00 23:00 Intake Total 840 ml Balance 840 ml Intake Oral 840 ml IV Total 0 ml # Voids 1 3 3 # Bowel Movements 1 1 Imaging Last Impressions Chest X-Ray 02/18/17 0000 Signed Impressions: Service Date/Time: Saturday, February 18, 2017 10:51 - CONCLUSION: Diminished lung volumes. No infiltrate. Tyrese Raymond MD Abdomen X-Ray 02/18/17 0000 Signed Impressions: Service Date/Time: Saturday, February 18, 2017 10:56 - CONCLUSION: Unremarkable abdomen. Tyrese Raymond MD Gall Bladder Ultrasound 02/17/17 0000 Signed Impressions: Service Date/Time: Friday, February 17, 2017 17:45 - CONCLUSION: Mildly enlarged liver and small amount of gallbladder sludge. Tim Hammonds MD Head CT 12/09/16 0000 Signed Impressions: Service Date/Time: Friday, December 09, 2016 17:36 - CONCLUSION: 1. Right ventriculostomy tube remains in place with decrease in ventricular size since November 24. There is some encephalomalacia around the shunt and a probable small infarct in the left basal ganglia. No new hemorrhage or shift. Tip Harris MD Transcranial Doppler Study Complete 10/26/16 0700 Signed Impressions: Service Date/Time: Wednesday, October 26, 2016 08:20 - CONCLUSION: Minimal interval improvement with no evidence for vasospasm. Christian Song MD FACR Neck CTA 10/19/16 0000 Signed Impressions: Service Date/Time: Wednesday, October 19, 2016 14:19 - CONCLUSION: Negative for dissection or significant stenosis. Christian Song MD FACR Head CTA 10/19/16 0000 Signed Impressions: Service Date/Time: Wednesday, October 19, 2016 14:19 - CONCLUSION: 1. Interval development of significant vasospasm in the left MCA and SRI territories. 2. Mild vasospasm in the basilar artery.. Gume Mckeon MD Cerebral Arteriogram 10/19/16 0000 Signed Impressions: Service Date/Time: Wednesday, October 19, 2016 16:06 - CONCLUSION: 1. Vasospasm in the left MCA and SRI territories 2. Spasmolytic infusion, left internal carotid artery as above.. 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 Gume Mckeon MD Pelvis X-Ray 10/05/16109 Signed Impressions: Service Date/Time: Wednesday, October 05, 2016 01:22 - CONCLUSION: Unremarkable examination of the pelvis. Ruben Acuña Jr., MD Chest CT 10/05/16109 Signed Impressions: Service Date/Time: Wednesday, October 05, 2016 01:46 - CONCLUSION: 1. No acute intrathoracic abnormality. 2. Bibasilar atelectasis. 3. Cardiomegaly. 4. Prior granulomatous disease. Ruben Acuña Jr., MD Cervical Spine CT 10/05/16109 Signed Impressions: Service Date/Time: Wednesday, October 05, 2016 01:40 - CONCLUSION: 1. No fracture or dislocation. 2. Multilevel degenerative changes. Ruben Acuña Jr., MD Abdomen/Pelvis CT 10/05/16109 Signed Impressions: Service Date/Time: Wednesday, October 05, 2016 01:46 - CONCLUSION: 1. No acute trauma. 2. Rounded area of decreased density involving the pancreatic head. I cannot completely exclude pancreatic head mass. At some point MRI of the pancreas is suggested to further evaluate. 3. Focal area of poor enhancement involving the left kidney. This may relate to an area of parenchymal scarring. I cannot completely exclude a mass. This can be further assessed with MRI as well. Ruben Acuña Jr., MD Objective Remarks GENERAL: Well-nourished, well-developed male patient, in no apparent distress. Awake and alert. Sitting up at nurses station. Calm and pleasant. SKIN: No rash. Warm and dry. HEENT: Normocephalic. Extraocular motions intact. No scleral icterus. No injection or drainage. Nose without bleeding. MMM. Airway patent. NECK: Trachea midline. Supple. CARDIOVASCULAR: RRR. No murmur appreciated. RESPIRATORY: Nonlabored. Clear to auscultation. Breath sounds equal bilaterally. No wheezes, rales, or rhonchi. GASTROINTESTINAL: Abdomen soft, nondistended and nontender. BS x 4. MUSCULOSKELETAL: Extremities without clubbing, cyanosis, or edema. NEUROLOGICAL: Awake and alert. Oriented to self only. Moves all 4 extremities spontaneously. Motor and sensory function grossly intact. Normal speech. Procedures 10/05/16 right frontal twist drill for ventriculostomy placement 10/20/16 arterial line placement 10/23/16 bedside percutaneous tracheostomy under direct bronchoscopic visualization 10/24/16 PEG tube placement at bedside Medications and IVs Current Medications Medications (Trade) Dose Ordered Sig/Nava Route Start Time Stop Time Status Last Admin (Tylenol) 650 mg Q6H PRN PO 10/05/16 02:45 02/26/17 09:52 (Zofran Inj) 4 mg Q6H PRN IV 10/05/16 02:45 11/27/16 23:26 Miscellaneous Information 1 Q361D XX 10/05/16 02:45 10/05/16 02:45 (Pravachol) 40 mg DAILY PO 10/05/16 09:00 02/28/17 09:06 (Lovenox Inj) 40 mg Q24H SQ 10/23/16 21:00 Future hold 02/28/17 21:02 (Trandate) 100 mg Q8H PO 11/03/16 20:00 03/01/17 04:20 (Norvasc) 5 mg DAILY PO 11/04/16 09:00 02/28/17 09:06 (Imodium) 2 mg UNSCH PRN PO 11/09/16 09:45 11/29/16 12:57 (Lomotil Tab) 1 tab Q6H PRN PO 11/09/16 09:45 (Lactulose Liq) 30 ml QID PRN PO 12/09/16 13:45 (Protonix) 40 mg DAILY PO 12/16/16 09:00 02/28/17 09:07 (Benadryl) 50 mg Q6H PRN PO 12/20/16 17:45 02/22/17 19:36 (Colace) 100 mg Q12H PRN PO 02/12/17 00:15 (Duoneb Neb) 1 ampule Q4HR NEB PRN INH 02/12/17 12:00 (KCl) 40 meq DAILY PO 02/13/17 09:00 02/28/17 09:07 (Tonie-Colace) 1 tab BID PO 02/18/17 09:30 02/28/17 21:02 (SEROquel) 200 mg BID@09,12 PO 02/24/17 09:00 02/28/17 12:07 A/P Problem List: (1) 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 ICD Code: I60.8 - Other nontraumatic subarachnoid hemorrhage Status: Acute (2) Hypertension ICD Code: I10 - Essential (primary) hypertension Status: Chronic (3) Major neurocognitive disorder due to vascular disease, without behavioral disturbance, severe ICD Code: F01.50 - Vascular dementia without behavioral disturbance Status: Acute (4) Septic shock ICD Code: A41.9 - Sepsis, unspecified organism; R65.21 - Severe sepsis with septic shock Status: Resolved (5) Hydrocephalus ICD Code: G91.9 - Hydrocephalus, unspecified Status: Acute (6) Intracranial hemorrhage ICD Code: I62.9 - Nontraumatic intracranial hemorrhage, unspecified Status: Acute (7) Major neurocognitive disorder as late effect of traumatic brain injury with behavioral disturbance ICD Code: S06.9X9S - Unspecified intracranial injury with loss of consciousness of unspecified duration, sequela; F02.81 - Dementia in other diseases classified elsewhere with behavioral disturbance Status: Acute (8) Encephalopathy ICD Code: G93.40 - Encephalopathy, unspecified Status: Acute (9) Sepsis ICD Code: A41.9 - Sepsis, unspecified organism Status: Resolved (10) Pneumonia ICD Code: J18.9 - Pneumonia, unspecified organism Status: Acute (11) Protein-calorie malnutrition, mild ICD Code: E44.1 - Mild protein-calorie malnutrition Status: Acute (12) Acute respiratory failure with hypoxia and hypercarbia ICD Code: J96.01 - Acute respiratory failure with hypoxia; J96.02 - Acute respiratory failure with hypercapnia Status: Acute Assessment and Plan Mr. Nunez is a 51 year old male who was brought to the hospital as a trauma alert due to head injury after he fell in the bathroom and hit his head. Patient was unresponsive for approximately 15 minutes by the time ambulance services arrived. His mentation waxed and waned with GCS ranging from [address] head indicated subarachnoid hemorrhage, acute. 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 Neuropsychology following patient ultimately for discharge placement and assistance with recommendations. Per neuropsych note, ongoing areas of concern include behavioral impulsivity, lack of insight and judgement. - Speech therapy recommends regular diet with thin liquids. Patient is eating well. PEG dc'd 01/08/17. - Continue Seroquel 100mg BID per psychiatry HTN - controlled - continue on Norvasc 5mg daily and Labetalol 100mg q8h Acute hypoxic hypercarbic respiratory failure, resolved - Tracheostomy 10/23/16, removed, old trach site healed. - Monitor respiratory status - 95% on RA C. difficile colitis, resolved - Completed Flagyl on 10/23 - No diarrhea reported - off Lactinex Hypokalemia, resolved - Continue scheduled KCL 40 meq PO daily. - Follow and replace as needed. - potassium levels stable - monitor intermittenly DVT prophylaxis: SCDs, YOUSIF hose, Lovenox. Ambulation. GI prophylaxis: Protonix. Discussed with patient, nursing staff and Dr. Gibbs Discharge Planning Discharge planning ongoing. CM continues to address funding and placement issue. Pending SSI. Problem Qualifiers (1) Hypertension: Debra Krause Mar 01, 2017 09:27
[2017-03-01 12:04] VITALS: BP 110/75; PULSE 94; RESP 20; TEMP 98.1; O2SAT 96
[2017-03-01 16:08] VITALS: BP 126/79; PULSE 91; RESP 20; TEMP 98.1; O2SAT 92
[2017-03-01 20:00] VITALS: BP 127/71; PULSE 97; RESP 18; TEMP 97.9; O2SAT 92
[2017-03-01] MEDS: ENOXAPARIN SODIUM 40 MG/0.4 ML SYRINGE SQ SCH (21:24)
[2017-03-02] VITALS: BP 126/72; PULSE 82; RESP 18; TEMP 97.6; O2SAT 93
[2017-03-02] MEDS: LABETALOL HCL 100 MG TAB PO SCH ×3 (04:53→20:20)
[2017-03-02 08:02] VITALS: BP 123/84; PULSE 89; RESP 20; TEMP 98; O2SAT 95
[2017-03-02] MEDS: amLODIPine BESYLATE 5 MG TAB PO SCH (08:57)
[2017-03-02] MEDS: DOCUSATE SODIUM 50 MG/SENNA 8.6 MG TAB PO SCH ×2 (08:57→20:20)
[2017-03-02] MEDS: PANTOPRAZOLE SOD 40 MG DELAYED RELEASE TAB PO SCH (08:57)
[2017-03-02] MEDS: POTASSIUM CHLORIDE 20 MEQ CONTROLLED RELEASE TAB PO SCH (08:58)
[2017-03-02] MEDS: PRAVASTATIN SOD 40 MG TAB PO SCH (08:58)
[2017-03-02] MEDS: QUEtiapine FUMARATE 100 MG TAB PO SCH ×2 (08:58→13:31)
--- NOTE | 2017-03-02 10:56 | HHI.PR ---
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 Patient seen and examined today. Patient denies any complaints of pain today. When asked if he has any shortness of breath, patient reports "I feel like I'm standing on a breathing platform and I'm on the other side". Patient denies any fever or chills. Denies any chest pain. Denies any N/V or abdominal pain. Discussed with CARI Dunaway - no acute issues reported. O2 sats 95% on RA. Objective Vitals Vital Signs Date Time Temp Pulse Resp B/P (MAP) Pulse Ox O2 Delivery O2 Flow Rate FiO2 03/02/17 08:02 98.0 89 20 123/84 (97) 95 03/02/17 00:00 97.6 82 18 126/72 (90) 93 03/01/17 20:00 97.9 97 18 127/71 (89) 92 03/01/17 16:08 98.1 91 20 126/79 (95) 92 03/01/17 12:04 98.1 94 20 110/75 (87) 96 I/O 03/01/17 03/01/17 03/01/17 03/02/17 03/02/17 03/02/17 07:00 15:00 23:00 07:00 15:00 23:00 Intake Total 600 ml Balance 600 ml Intake Oral 600 ml # Voids 8 2 # Bowel Movements 3 Imaging Last Impressions Chest X-Ray 02/18/17 0000 Signed Impressions: Service Date/Time: Saturday, February 18, 2017 10:51 - CONCLUSION: Diminished lung volumes. No infiltrate. Tyrese Raymond MD Abdomen X-Ray 02/18/17 0000 Signed Impressions: Service Date/Time: Saturday, February 18, 2017 10:56 - CONCLUSION: Unremarkable abdomen. Tyrese Raymond MD Gall Bladder Ultrasound 02/17/17 0000 Signed Impressions: Service Date/Time: Friday, February 17, 2017 17:45 - CONCLUSION: Mildly enlarged liver and small amount of gallbladder sludge. Tim Hammonds MD Head CT 12/09/16 0000 Signed Impressions: Service Date/Time: Friday, December 09, 2016 17:36 - CONCLUSION: 1. Right ventriculostomy tube remains in place with decrease in ventricular size since May 25. There is some encephalomalacia around the shunt and a probable small infarct in the left basal ganglia. No new hemorrhage or shift. Tip Harris MD Transcranial Doppler Study Complete 10/26/16 0700 Signed Impressions: Service Date/Time: Wednesday, October 26, 2016 08:20 - CONCLUSION: Minimal interval improvement with no evidence for vasospasm. Christian Song MD FACR Neck CTA 10/19/16 0000 Signed Impressions: Service Date/Time: Wednesday, October 19, 2016 14:19 - CONCLUSION: Negative for dissection or significant stenosis. Christian Song MD FACR Head CTA 10/19/16 0000 Signed Impressions: Service Date/Time: Wednesday, October 19, 2016 14:19 - CONCLUSION: 1. Interval development of significant vasospasm in the left MCA and SRI territories. 2. Mild vasospasm in the basilar artery.. Gume Mckeon MD Cerebral Arteriogram 10/19/16 0000 Signed Impressions: Service Date/Time: Wednesday, October 19, 2016 16:06 - CONCLUSION: 1. Vasospasm in the left MCA and SRI territories 2. Spasmolytic infusion, left internal carotid artery as above.. 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 Gume Mckeon MD Pelvis X-Ray 10/05/16109 Signed Impressions: Service Date/Time: Wednesday, October 05, 2016 01:22 - CONCLUSION: Unremarkable examination of the pelvis. Ruben Acuña Jr., MD Chest CT 10/05/16109 Signed Impressions: Service Date/Time: Wednesday, October 05, 2016 01:46 - CONCLUSION: 1. No acute intrathoracic abnormality. 2. Bibasilar atelectasis. 3. Cardiomegaly. 4. Prior granulomatous disease. Ruben Acuña Jr., MD Cervical Spine CT 10/05/16109 Signed Impressions: Service Date/Time: Wednesday, October 05, 2016 01:40 - CONCLUSION: 1. No fracture or dislocation. 2. Multilevel degenerative changes. Ruben Acuña Jr., MD Abdomen/Pelvis CT 10/05/16109 Signed Impressions: Service Date/Time: Wednesday, October 05, 2016 01:46 - CONCLUSION: 1. No acute trauma. 2. Rounded area of decreased density involving the pancreatic head. I cannot completely exclude pancreatic head mass. At some point MRI of the pancreas is suggested to further evaluate. 3. Focal area of poor enhancement involving the left kidney. This may relate to an area of parenchymal scarring. I cannot completely exclude a mass. This can be further assessed with MRI as well. Ruben Acuña Jr., MD Objective Remarks GENERAL: Well-nourished, well-developed male patient, in no apparent distress. Awake and alert. Sitting up at nurses station. Appears comfortable. SKIN: No rash. Warm and dry. HEENT: Normocephalic. Extraocular motions intact. No scleral icterus. No injection or drainage. Nose without bleeding. MMM. Airway patent. NECK: Trachea midline. Supple. CARDIOVASCULAR: RRR. No murmur appreciated. RESPIRATORY: Nonlabored. Clear to auscultation. Breath sounds equal bilaterally. No wheezes, rales, or rhonchi. GASTROINTESTINAL: Abdomen soft, nondistended and nontender. BS x 4. MUSCULOSKELETAL: Extremities without clubbing, cyanosis, or edema. NEUROLOGICAL: Awake and alert. Oriented to self only. Moves all 4 extremities spontaneously. Motor and sensory function grossly intact. Normal speech. Procedures 10/05/16 right frontal twist drill for ventriculostomy placement 10/20/16 arterial line placement 10/23/16 bedside percutaneous tracheostomy under direct bronchoscopic visualization 10/24/16 PEG tube placement at bedside Medications and IVs Current Medications Medications (Trade) Dose Ordered Sig/Nava Route Start Time Stop Time Status Last Admin (Tylenol) 650 mg Q6H PRN PO 10/05/16 02:45 02/26/17 09:52 (Zofran Inj) 4 mg Q6H PRN IV 10/05/16 02:45 11/27/16 23:26 Miscellaneous Information 1 Q361D XX 10/05/16 02:45 10/05/16 02:45 (Pravachol) 40 mg DAILY PO 10/05/16 09:00 03/02/17 08:58 (Lovenox Inj) 40 mg Q24H SQ 10/23/16 21:00 Future hold 03/01/17 21:24 (Trandate) 100 mg Q8H PO 11/03/16 20:00 03/02/17 04:53 (Norvasc) 5 mg DAILY PO 11/04/16 09:00 03/02/17 08:57 (Imodium) 2 mg UNSCH PRN PO 11/09/16 09:45 11/29/16 12:57 (Lomotil Tab) 1 tab Q6H PRN PO 11/09/16 09:45 (Lactulose Liq) 30 ml QID PRN PO 12/09/16 13:45 (Protonix) 40 mg DAILY PO 12/16/16 09:00 03/02/17 08:57 (Benadryl) 50 mg Q6H PRN PO 12/20/16 17:45 02/22/17 19:36 (Colace) 100 mg Q12H PRN PO 02/12/17 00:15 (Duoneb Neb) 1 ampule Q4HR NEB PRN INH 02/12/17 12:00 (KCl) 40 meq DAILY PO 02/13/17 09:00 03/02/17 08:58 (Tonie-Colace) 1 tab BID PO 02/18/17 09:30 03/02/17 08:57 (SEROquel) 200 mg BID@09,12 PO 02/24/17 09:00 03/02/17 08:58 A/P Problem List: (1) 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 ICD Code: I60.8 - Other nontraumatic subarachnoid hemorrhage Status: Acute (2) Hypertension ICD Code: I10 - Essential (primary) hypertension Status: Chronic (3) Major neurocognitive disorder due to vascular disease, without behavioral disturbance, severe ICD Code: F01.50 - Vascular dementia without behavioral disturbance Status: Acute (4) Septic shock ICD Code: A41.9 - Sepsis, unspecified organism; R65.21 - Severe sepsis with septic shock Status: Resolved (5) Hydrocephalus ICD Code: G91.9 - Hydrocephalus, unspecified Status: Acute (6) Intracranial hemorrhage ICD Code: I62.9 - Nontraumatic intracranial hemorrhage, unspecified Status: Acute (7) Major neurocognitive disorder as late effect of traumatic brain injury with behavioral disturbance ICD Code: S06.9X9S - Unspecified intracranial injury with loss of consciousness of unspecified duration, sequela; F02.81 - Dementia in other diseases classified elsewhere with behavioral disturbance Status: Acute (8) Encephalopathy ICD Code: G93.40 - Encephalopathy, unspecified Status: Acute (9) Sepsis ICD Code: A41.9 - Sepsis, unspecified organism Status: Resolved (10) Pneumonia ICD Code: J18.9 - Pneumonia, unspecified organism Status: Acute (11) Protein-calorie malnutrition, mild ICD Code: E44.1 - Mild protein-calorie malnutrition Status: Acute (12) Acute respiratory failure with hypoxia and hypercarbia ICD Code: J96.01 - Acute respiratory failure with hypoxia; J96.02 - Acute respiratory failure with hypercapnia Status: Acute Assessment and Plan Mr. Nunez is a 51 year old male who was brought to the hospital as a trauma alert due to head injury after he fell in the bathroom and hit his head. Patient was unresponsive for approximately 15 minutes by the time ambulance services arrived. His mentation waxed and waned with GCS ranging from [address] head indicated subarachnoid hemorrhage, acute. Auditory hallucinations - Psychiatry consulted, appreciate their assistance - Continues to have hallucinations - recent episode of increased psychosis likely due to not receiving his evening dose of Seroquel. No recurrence taking Seroquel as prescribed. - Continue to monitor with ADLs Intracranial hemorrhage, status post basilar artery coiling 10/05, Status post METAL FABRICATOR shunt on 11/24/2016 Chronic encephalopathy Hydrocephalus Cortical blindness - Neurology signed off. Neuropsychology following patient ultimately for discharge placement and assistance with recommendations. Per neuropsych note, ongoing areas of concern include behavioral impulsivity, lack of insight and judgement. - Speech therapy recommends regular diet with thin liquids. Patient is eating well. PEG dc'd 01/08/17. - Continue Seroquel 100mg BID per psychiatry HTN - controlled - continue on Norvasc 5mg daily and Labetalol 100mg q8h Acute hypoxic hypercarbic respiratory failure, resolved - Tracheostomy 10/23/16, removed, old trach site healed. - Monitor respiratory status - 95% on RA C. difficile colitis, resolved - Completed Flagyl on 10/23 - No diarrhea reported - off Lactinex Hypokalemia, resolved - Continue scheduled KCL 40 meq PO daily. - Follow and replace as needed. - potassium levels stable - monitor intermittenly DVT prophylaxis: SCDs, YOUSIF hose, Lovenox. Ambulation. GI prophylaxis: Protonix. Discussed with patient, nursing staff and Dr. Gibbs Discharge Planning Discharge planning ongoing. CM continues to address funding and placement issue. Pending SSI and medicaid. Problem Qualifiers (1) Hypertension: Debra Krause Mar 02, 2017 10:56
[2017-03-02 12:42] VITALS: BP 102/60; PULSE 88; RESP 20; TEMP 97.5; O2SAT 93
[2017-03-02 16:00] VITALS: BP 108/68; PULSE 87; RESP 20; TEMP 97.5; O2SAT 94
[2017-03-02 20:00] VITALS: BP 124/70; PULSE 86; RESP 18; TEMP 97.3; O2SAT 95
[2017-03-02] MEDS: diphenhydrAMINE HCL 50 MG CAP PO PRN (20:20)
[2017-03-02] MEDS: ENOXAPARIN SODIUM 40 MG/0.4 ML SYRINGE SQ SCH (20:21)
[2017-03-03] VITALS: BP 129/85; PULSE 81; RESP 18; TEMP 97.3; O2SAT 94
[2017-03-03] MEDS: LABETALOL HCL 100 MG TAB PO SCH ×3 (04:35→23:53)
[2017-03-03 04:44] VITALS: BP 114/80; PULSE 78; RESP 18; TEMP 97.6; O2SAT 96
[2017-03-03 07:47] VITALS: BP 111/62; PULSE 81; RESP 16; TEMP 99; O2SAT 93
[2017-03-03] MEDS: DOCUSATE SODIUM 50 MG/SENNA 8.6 MG TAB PO SCH ×2 (10:06→23:53)
[2017-03-03] MEDS: QUEtiapine FUMARATE 100 MG TAB PO SCH ×2 (10:07→13:47)
[2017-03-03] MEDS: POTASSIUM CHLORIDE 20 MEQ CONTROLLED RELEASE TAB PO SCH (10:07)
[2017-03-03] MEDS: amLODIPine BESYLATE 5 MG TAB PO SCH (10:07)
[2017-03-03] MEDS: PRAVASTATIN SOD 40 MG TAB PO SCH (10:07)
[2017-03-03] MEDS: PANTOPRAZOLE SOD 40 MG DELAYED RELEASE TAB PO SCH (10:07)
[2017-03-03 11:43] VITALS: BP 123/72; PULSE 89; RESP 20; TEMP 98.6; O2SAT 94
--- NOTE | 2017-03-03 12:30 | HHI.PR ---
Subjective Remarks Follow up on patient with intracranial hemorrhage, basilar tip aneurysm s/p [employer] shunt. Stable seen and denied any pain, no nausea, vomit or diarrhea. Objective Vital Signs Date Time Temp Pulse Resp B/P (MAP) Pulse Ox O2 Delivery O2 Flow Rate FiO2 03/03/17 11:43 98.6 89 20 123/72 (89) 94 03/03/17 07:47 99.0 81 16 111/62 (78) 93 03/03/17 04:44 97.6 78 18 114/80 (91) 96 03/03/17 00:00 97.3 81 18 129/85 (100) 94 03/02/17 20:00 97.3 86 18 124/70 (88) 95 03/02/17 16:00 97.5 87 20 108/68 (81) 94 03/02/17 12:42 97.5 88 20 102/60 (74) 93 I/O 03/02/17 03/02/17 03/02/17 03/03/17 03/03/17 03/03/17 07:00 15:00 23:00 07:00 15:00 23:00 Intake Total 480 ml 236 ml Output Total 0 ml Balance 480 ml 0 ml 236 ml Intake Oral 480 ml 236 ml Stool Total 0 ml # Voids 3 3 2 # Bowel Movements 0 1 Result Diagram: 03/03/17 0934 Imaging Last Impressions Chest X-Ray 02/18/17 0000 Signed Impressions: Service Date/Time: Saturday, February 18, 2017 10:51 - CONCLUSION: Diminished lung volumes. No infiltrate. Tyrese Raymond MD Abdomen X-Ray 02/18/17 0000 Signed Impressions: Service Date/Time: Saturday, February 18, 2017 10:56 - CONCLUSION: Unremarkable abdomen. Tyrese Raymond MD Gall Bladder Ultrasound 02/17/17 0000 Signed Impressions: Service Date/Time: Friday, February 17, 2017 17:45 - CONCLUSION: Mildly enlarged liver and small amount of gallbladder sludge. Tim Hammonds MD Head CT 12/09/16 0000 Signed Impressions: Service Date/Time: Friday, December 09, 2016 17:36 - CONCLUSION: 1. Right ventriculostomy tube remains in place with decrease in ventricular size since November 24. There is some encephalomalacia around the shunt and a probable small infarct in the left basal ganglia. No new hemorrhage or shift. Tip Harris MD Transcranial Doppler Study Complete 10/26/16 0700 Signed Impressions: Service Date/Time: Wednesday, October 26, 2016 08:20 - CONCLUSION: Minimal interval improvement with no evidence for vasospasm. Christian Song MD FACR Neck CTA 10/19/16 0000 Signed Impressions: Service Date/Time: Wednesday, October 19, 2016 14:19 - CONCLUSION: Negative for dissection or significant stenosis. Christian Song MD FACR Head CTA 10/19/16 0000 Signed Impressions: Service Date/Time: Wednesday, October 19, 2016 14:19 - CONCLUSION: 1. Interval development of significant vasospasm in the left MCA and SRI territories. 2. Mild vasospasm in the basilar artery.. Gume Mckeon MD Cerebral Arteriogram 10/19/16 0000 Signed Impressions: Service Date/Time: Wednesday, October 19, 2016 16:06 - CONCLUSION: 1. Vasospasm in the left MCA and SRI territories 2. Spasmolytic infusion, left internal carotid artery as above.. 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 Gume Mckeon MD Pelvis X-Ray 10/05/16109 Signed Impressions: Service Date/Time: Wednesday, October 05, 2016 01:22 - CONCLUSION: Unremarkable examination of the pelvis. Ruben Acuña Jr., MD Chest CT 10/05/16109 Signed Impressions: Service Date/Time: Wednesday, October 05, 2016 01:46 - CONCLUSION: 1. No acute intrathoracic abnormality. 2. Bibasilar atelectasis. 3. Cardiomegaly. 4. Prior granulomatous disease. Ruben Acuña Jr., MD Cervical Spine CT 10/05/16109 Signed Impressions: Service Date/Time: Wednesday, October 05, 2016 01:40 - CONCLUSION: 1. No fracture or dislocation. 2. Multilevel degenerative changes. Ruben Acuña Jr., MD Abdomen/Pelvis CT 10/05/16109 Signed Impressions: Service Date/Time: Wednesday, October 05, 2016 01:46 - CONCLUSION: 1. No acute trauma. 2. Rounded area of decreased density involving the pancreatic head. I cannot completely exclude pancreatic head mass. At some point MRI of the pancreas is suggested to further evaluate. 3. Focal area of poor enhancement involving the left kidney. This may relate to an area of parenchymal scarring. I cannot completely exclude a mass. This can be further assessed with MRI as well. Ruben Acuña Jr., MD Procedures 10/05/16 right frontal twist drill for ventriculostomy placement 10/20/16 arterial line placement 10/23/16 bedside percutaneous tracheostomy under direct bronchoscopic visualization 10/24/16 PEG tube placement at bedside Other Results Laboratory Tests Test 10/05/16 00:15 10/05/16 02:45 10/05/16 17:15 10/06/16 03:45 Bedside Hemoglobin 15.6 G/DL Bedside Hematocrit 46.0 % Eosinophils % 5 % Basophils % 2 % Atypical Lymphocytes % Activated Partial Thromboplast Time 21.0 SEC Fibrinogen 249 mg/dL Bedside Sodium 146 MMOL/L Bedside Potassium 4.4 MMOL/L Bedside Chloride 105 MMOL/L Bedside Blood Urea Nitrogen 30 MG/DL Bedside Creatinine 1.3 MG/DL Bedside Glucose 145 MG/DL Ethyl Alcohol Level LESS THAN 3 MG/DL Nasal Screen MRSA (PCR) NEGATIVE Urine Opiates Screen NEG Urine Barbiturates Screen NEG Urine Amphetamines Screen NEG Urine Benzodiazepines Screen NEG Urine Cocaine Screen NEG Urine Cannabinoids Screen NEG Blood Gas Puncture Site ART LINE Blood Gas Patient Temperature 98.6 Blood Gas HCO3 23 mmol/L Blood Gas Base Excess -1.0 mmol/L Blood Gas Oxygen Saturation 98 % Arterial Blood pH 7.40 Arterial Blood Partial Pressure CO2 38 mmHg Arterial Blood Partial Pressure O2 235 mmHg Arterial Blood Oxygen Content 17.9 Vol % Arterial Blood Carboxyhemoglobin 1.1 % Arterial Blood Methemoglobin 1.0 % Blood Gas Hemoglobin 12.7 G/DL Oxygen Delivery Device VENTILATOR Blood Gas Ventilator Setting AC/RR14/VT700/[id number] Blood Gas Inspired Oxygen 80 % Prothrombin Time 10.9 SEC Prothromb Time International Ratio 1.0 RATIO Lactic Acid Level 1.1 mmol/L Test 10/12/16 01:45 10/12/16 04:45 10/14/16 05:15 10/20/16 12:55 Urine WBC Clumps MANY Differential Total Cells Counted 100 Neutrophils % (Manual) 77 % Band Neutrophils % 16 % Lymphocytes % 5 % Monocytes % 2 % Neutrophils # (Manual) 22.6 TH/MM3 Platelet Estimate NORMAL Platelet Morphology Comment NORMAL Red Cell Morphology Comment NORMAL Random Vancomycin Level 7.4 COMMENT Urine Squamous Epithelial Cells <1 /hpf Test 10/21/16 09:20 10/25/16 11:10 11/06/16 20:00 11/08/16 04:45 CSF Volume (Tube 1) 9.0 ML CSF Supernatant Color (tube 1) CLEAR CSF Gross Blood (Tube 1) TRACE CSF WBC (Tube 1) 4 /MM3 CSF RBC (Tube 1) 112 /MM3 CSF Neutrophils 10 % CSF Lymphocytes 60 % CSF Monocytes 30 % CSF Glucose 112 MG/DL CSF Total Protein 28.8 MG/DL Urine Osmolality 290 MOSM/KG Urine Random Sodium 119 MEQ/L Serum Osmolality 303 MOSM/KG Blood Urea Nitrogen 16 MG/DL 10 MG/DL Creatinine 0.71 MG/DL 0.69 MG/DL Random Glucose 127 MG/DL 100 MG/DL Total Protein 6.6 GM/DL Albumin 2.3 GM/DL Calcium Level 7.8 MG/DL 8.2 MG/DL Magnesium Level 2.3 MG/DL 2.0 MG/DL Uric Acid 2.5 MG/DL Alkaline Phosphatase 67 U/L Aspartate Amino Transf (AST/SGOT) 28 U/L Alanine Aminotransferase (ALT/SGPT) 67 U/L Total Bilirubin 0.5 MG/DL Sodium Level 147 MEQ/L 148 MEQ/L Potassium Level 3.4 MEQ/L 3.7 MEQ/L Chloride Level 112 MEQ/L 114 MEQ/L Carbon Dioxide Level 26.0 MEQ/L 27.1 MEQ/L Protein Corrected Calcium 7.8 MG/DL Ovalocytes 1+ Acanthocytes OCC Phosphorus Level 3.0 MG/DL Test 11/14/16 06:00 11/17/16 08:11 12/14/16 07:36 01/18/17 18:19 Urine Transitional Epithelial Cells <1 /hpf Urine Calcium Oxalate Crystals RARE /hpf Urine Bacteria RARE /hpf Urine Hyaline Casts 11 /lpf Stool C. difficile Toxin (PCR) NEGATIVE Stl C. difficile Toxin Epiderm 027 PRESUMPTIVE NEGATIVE Blood Urea Nitrogen 14 MG/DL Creatinine 0.67 MG/DL Random Glucose 91 MG/DL Calcium Level 8.8 MG/DL Magnesium Level 2.0 MG/DL Sodium Level 143 MEQ/L Potassium Level 3.3 MEQ/L Chloride Level 107 MEQ/L Carbon Dioxide Level 25.0 MEQ/L Ammonia 26 MCMOL/L Test 01/20/17 09:35 02/06/17 08:20 02/17/17 09:45 02/17/17 18:04 Urine Mucus FEW /lpf Levetiracetam (Keppra) Level <2.0 mcg/mL Urine Color LIGHT-YELLOW Urine Turbidity CLEAR Urine pH 6.5 Urine Specific [place] 1.009 Urine Protein NEG mg/dL Urine Glucose (UA) NEG mg/dL Urine Ketones NEG mg/dL Urine Occult Blood NEG Urine Nitrite NEG Urine Bilirubin NEG Urine Urobilinogen LESS THAN 2.0 MG/DL Urine Leukocyte Esterase NEG Urine RBC LESS THAN 1 /hpf Urine WBC 1 /hpf Microscopic Urinalysis Comment CULT NOT INDICATED Neutrophils (%) (Auto) 48.2 % Lymphocytes (%) (Auto) 35.2 % Monocytes (%) (Auto) 9.5 % Eosinophils (%) (Auto) 6.1 % Basophils (%) (Auto) 1.0 % Neutrophils # (Auto) 2.8 TH/MM3 Lymphocytes # (Auto) 2.1 TH/MM3 Monocytes # (Auto) 0.6 TH/MM3 Eosinophils # (Auto) 0.4 TH/MM3 Basophils # (Auto) 0.1 TH/MM3 CBC Comment DIFF FINAL Differential Comment Blood Urea Nitrogen 18 MG/DL Creatinine 1.17 MG/DL Random Glucose 81 MG/DL Total Protein 7.1 GM/DL Albumin 3.6 GM/DL Calcium Level 8.5 MG/DL Alkaline Phosphatase 58 U/L Aspartate Amino Transf (AST/SGOT) 11 U/L Alanine Aminotransferase (ALT/SGPT) 24 U/L Total Bilirubin 0.4 MG/DL Sodium Level 141 MEQ/L Potassium Level 4.1 MEQ/L Chloride Level 110 MEQ/L Carbon Dioxide Level 24.8 MEQ/L Lipase 85 U/L Test 02/18/17 17:10 02/24/17 08:28 03/03/17 09:34 Troponin I LESS THAN 0.02 NG/ML White Blood Count 6.8 TH/MM3 Red Blood Count 4.71 MIL/MM3 Hemoglobin 13.5 GM/DL Hematocrit 41.3 % Mean Corpuscular Volume 87.7 FL Mean Corpuscular Hemoglobin 28.8 PG Mean Corpuscular Hemoglobin Concent 32.8 % Red Cell Distribution Width 14.4 % Platelet Count 206 TH/MM3 Mean Platelet Volume 9.1 FL Blood Urea Nitrogen 19 MG/DL Creatinine 1.12 MG/DL Random Glucose 76 MG/DL Calcium Level 8.4 MG/DL Sodium Level 143 MEQ/L Potassium Level 3.7 MEQ/L 3.8 MEQ/L Chloride Level 110 MEQ/L Carbon Dioxide Level 25.3 MEQ/L Anion Gap 8 MEQ/L Estimat Glomerular Filtration Rate 69 ML/MIN Objective Remarks GENERAL: Well-nourished, well-developed male patient, in no apparent distress. Awake and alert. Sitting up at nurses station. Appears comfortable. SKIN: No rash. Warm and dry. HEENT: Normocephalic. Extraocular motions intact. No scleral icterus. No injection or drainage. Nose without bleeding. MMM. Airway patent. NECK: Trachea midline. Supple. CARDIOVASCULAR: RRR. No murmur appreciated. RESPIRATORY: Nonlabored. Clear to auscultation. Breath sounds equal bilaterally. No wheezes, rales, or rhonchi. GASTROINTESTINAL: Abdomen soft, nondistended and nontender. BS x 4. MUSCULOSKELETAL: Extremities without clubbing, cyanosis, or edema. NEUROLOGICAL: Awake and alert. Oriented to self only. Moves all 4 extremities spontaneously. Motor and sensory function grossly intact. Normal speech. Medications and IVs Current Medications Medications (Trade) Dose Ordered Sig/Nava Route Start Time Stop Time Status Last Admin (Tylenol) 650 mg Q6H PRN PO 10/05/16 02:45 02/26/17 09:52 (Zofran Inj) 4 mg Q6H PRN IV 10/05/16 02:45 11/27/16 23:26 Miscellaneous Information 1 Q361D XX 10/05/16 02:45 10/05/16 02:45 (Pravachol) 40 mg DAILY PO 10/05/16 09:00 03/03/17 10:07 (Lovenox Inj) 40 mg Q24H SQ 10/23/16 21:00 Future hold 03/02/17 20:21 (Trandate) 100 mg Q8H PO 11/03/16 20:00 03/03/17 04:35 (Norvasc) 5 mg DAILY PO 11/04/16 09:00 03/03/17 10:07 (Imodium) 2 mg UNSCH PRN PO 11/09/16 09:45 11/29/16 12:57 (Lomotil Tab) 1 tab Q6H PRN PO 11/09/16 09:45 (Lactulose Liq) 30 ml QID PRN PO 12/09/16 13:45 (Protonix) 40 mg DAILY PO 12/16/16 09:00 03/03/17 10:07 (Benadryl) 50 mg Q6H PRN PO 12/20/16 17:45 03/02/17 20:20 (Colace) 100 mg Q12H PRN PO 02/12/17 00:15 (Duoneb Neb) 1 ampule Q4HR NEB PRN INH 02/12/17 12:00 (KCl) 40 meq DAILY PO 02/13/17 09:00 03/03/17 10:07 (Tonie-Colace) 1 tab BID PO 02/18/17 09:30 03/03/17 10:06 (SEROquel) 200 mg BID@09,12 PO 02/24/17 09:00 03/03/17 10:07 A/P Assessment and Plan Mr. Nunez is a 51 year old male who was brought to the hospital as a trauma alert due to head injury after he fell in the bathroom and hit his head. Patient was unresponsive for approximately 15 minutes by the time ambulance services arrived. His mentation waxed and waned with GCS ranging from [address] head indicated subarachnoid hemorrhage, acute. Auditory hallucinations - Psychiatry consulted, recommended Seroquel, no new Episodes of Hallucinations. Intracranial hemorrhage, status post basilar artery coiling 10/05, Status post [employer] shunt on 11/24/2016 Chronic encephalopathy Hydrocephalus Cortical blindness - Neurology signed off. Neuropsychology following patient ultimately for discharge placement and assistance with recommendations. Per neuropsychology note, ongoing areas of concern include behavioral impulsivity, lack of insight and judgement. - Speech therapy recommends regular diet with thin liquids. Patient is eating well. PEG dc'd 01/08/17. - Continue Seroquel 100mg BID per psychiatry HTN - controlled - continue on Norvasc 5mg daily and Labetalol 100mg q8h Acute hypoxic hypercarbic respiratory failure, resolved - Tracheostomy 10/23/16, removed, old trach site healed. - Monitor respiratory status - 95% on RA C. difficile colitis, resolved - Completed Flagyl on 10/23 - No diarrhea reported - off Lactinex Hypokalemia, resolved - Continue scheduled KCL 40 meq PO daily. - Follow and replace as needed. - potassium levels stable - monitor intermittently DVT prophylaxis: SCDs, YOUSIF han Lovenox. Ambulation. GI prophylaxis: Protonix. Discharge Planning Discharge planning ongoing. CM continues to address funding and placement issue. Pending SSI and medicaid. Luciano Gomez MD Mar 03, 2017 12:30
[2017-03-03 15:43] VITALS: BP 116/73; PULSE 99; RESP 20; TEMP 98.6; O2SAT 94
[2017-03-03 21:09] VITALS: BP 132/72; PULSE 81; RESP 18; TEMP 97.6; O2SAT 95
[2017-03-03] MEDS: ENOXAPARIN SODIUM 40 MG/0.4 ML SYRINGE SQ SCH (23:57)
[2017-03-04] VITALS: BP 124/70; PULSE 81; RESP 18; TEMP 97.6; O2SAT 95
[2017-03-04] MEDS: LABETALOL HCL 100 MG TAB PO SCH ×3 (04:00→22:07)
[2017-03-04 06:00] VITALS: BP 121/75; PULSE 79; RESP 18; TEMP 98.2; O2SAT 95
[2017-03-04 08:00] VITALS: BP 121/81; PULSE 87; RESP 16; TEMP 98; O2SAT 99
[2017-03-04] MEDS: QUEtiapine FUMARATE 100 MG TAB PO SCH ×2 (08:55→11:56)
[2017-03-04] MEDS: PRAVASTATIN SOD 40 MG TAB PO SCH (08:55)
[2017-03-04] MEDS: amLODIPine BESYLATE 5 MG TAB PO SCH (08:55)
[2017-03-04] MEDS: PANTOPRAZOLE SOD 40 MG DELAYED RELEASE TAB PO SCH (08:56)
[2017-03-04] MEDS: POTASSIUM CHLORIDE 20 MEQ CONTROLLED RELEASE TAB PO SCH (08:56)
[2017-03-04] MEDS: DOCUSATE SODIUM 50 MG/SENNA 8.6 MG TAB PO SCH ×2 (08:56→22:07)
--- NOTE | 2017-03-04 11:16 | HHI.PR ---
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 No complaints at this time. Afebrile, vital signs stable Objective Vitals Vital Signs Date Time Temp Pulse Resp B/P (MAP) Pulse Ox O2 Delivery O2 Flow Rate FiO2 03/04/17 08:00 98.0 87 16 121/81 (94) 99 03/04/17 06:00 98.2 79 18 121/75 (90) 95 03/04/17 00:00 97.6 81 18 124/70 (88) 95 03/03/17 21:09 97.6 81 18 132/72 (92) 95 03/03/17 15:43 98.6 99 20 116/73 (87) 94 03/03/17 11:43 98.6 89 20 123/72 (89) 94 I/O 03/03/17 03/03/17 03/03/17 03/04/17 03/04/17 03/04/17 06:59 14:59 22:59 06:59 14:59 22:59 Intake Total 236 ml 240 ml 120 ml Output Total 0 ml 0 ml Balance 0 ml 236 ml 240 ml 120 ml Intake Oral 236 ml 240 ml 120 ml Output Urine Total 0 ml Stool Total 0 ml # Voids 3 2 1 1 # Bowel Movements 0 1 Result Diagram: 03/03/17 0934 Objective Remarks GENERAL: Well-nourished, well-developed male patient, in no apparent distress. Awake and alert. Sitting up at nurses station. Appears comfortable. SKIN: No rash. Warm and dry. HEENT: Normocephalic. Extraocular motions intact. No scleral icterus. No injection or drainage. Nose without bleeding. MMM. Airway patent. NECK: Trachea midline. Supple. CARDIOVASCULAR: RRR. No murmur appreciated. RESPIRATORY: Nonlabored. Clear to auscultation. Breath sounds equal bilaterally. No wheezes, rales, or rhonchi. GASTROINTESTINAL: Abdomen soft, nondistended and nontender. BS x 4. MUSCULOSKELETAL: Extremities without clubbing, cyanosis, or edema. NEUROLOGICAL: Awake and alert. Oriented to self only. Moves all 4 extremities spontaneously. Motor and sensory function grossly intact. Normal speech. Procedures 10/05/16 right frontal twist drill for ventriculostomy placement 4/20/17 arterial line placement 10/23/16 bedside percutaneous tracheostomy under direct bronchoscopic visualization 10/24/16 PEG tube placement at bedside A/P Problem List: (1) 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 ICD Code: I60.8 - Other nontraumatic subarachnoid hemorrhage Status: Acute (2) Hypertension ICD Code: I10 - Essential (primary) hypertension Status: Chronic (3) Major neurocognitive disorder due to vascular disease, without behavioral disturbance, severe ICD Code: F01.50 - Vascular dementia without behavioral disturbance Status: Acute (4) Septic shock ICD Code: A41.9 - Sepsis, unspecified organism; R65.21 - Severe sepsis with septic shock Status: Resolved (5) Hydrocephalus ICD Code: G91.9 - Hydrocephalus, unspecified Status: Acute (6) Intracranial hemorrhage ICD Code: I62.9 - Nontraumatic intracranial hemorrhage, unspecified Status: Acute (7) Major neurocognitive disorder as late effect of traumatic brain injury with behavioral disturbance ICD Code: S06.9X9S - Unspecified intracranial injury with loss of consciousness of unspecified duration, sequela; F02.81 - Dementia in other diseases classified elsewhere with behavioral disturbance Status: Acute (8) Encephalopathy ICD Code: G93.40 - Encephalopathy, unspecified Status: Acute (9) Sepsis ICD Code: A41.9 - Sepsis, unspecified organism Status: Resolved (10) Pneumonia ICD Code: J18.9 - Pneumonia, unspecified organism Status: Acute (11) Protein-calorie malnutrition, mild ICD Code: E44.1 - Mild protein-calorie malnutrition Status: Acute (12) Acute respiratory failure with hypoxia and hypercarbia ICD Code: J96.01 - Acute respiratory failure with hypoxia; J96.02 - Acute respiratory failure with hypercapnia Status: Acute Assessment and Plan Mr. Nunez is a 51 year old male who was brought to the hospital as a trauma alert due to head injury after he fell in the bathroom and hit his head. Patient was unresponsive for approximately 15 minutes by the time ambulance services arrived. His mentation waxed and waned with GCS ranging from [address] head indicated subarachnoid hemorrhage, acute. Auditory hallucinations - Psychiatry consulted, recommended Seroquel, no new Episodes of Hallucinations. Intracranial hemorrhage, status post basilar artery coiling 10/05, Status post REVENUE CYCLE ADMINISTRATOR shunt on 11/24/2016 Chronic encephalopathy Hydrocephalus Cortical blindness - Neurology signed off. Neuropsychology following patient ultimately for discharge placement and assistance with recommendations. Per neuropsychology note, ongoing areas of concern include behavioral impulsivity, lack of insight and judgement. - Speech therapy recommends regular diet with thin liquids. Patient is eating well. PEG dc'd 01/08/17. - Continue Seroquel 100mg BID per psychiatry HTN - controlled - continue on Norvasc 5mg daily and Labetalol 100mg q8h Acute hypoxic hypercarbic respiratory failure, resolved - Tracheostomy 10/23/16, removed, old trach site healed. - Monitor respiratory status - stable on RA C. difficile colitis, resolved - Completed Flagyl on 10/23 - No diarrhea reported - off Lactinex Hypokalemia, resolved - Continue scheduled KCL 40 meq PO daily. - Follow and replace as needed. - potassium levels stable - monitor intermittently DVT prophylaxis: SCDs, YOUSIF han, Lovenox. Ambulation. GI prophylaxis: Protonix. Discharge Planning Discharge planning ongoing. CM continues to address funding and placement issue. Pending SSI and medicaid. Problem Qualifiers (1) Hypertension: Areli Lane MD R3 Mar 04, 2017 11:16
[2017-03-04 12:00] VITALS: BP 128/80; PULSE 98; RESP 17; TEMP 98.2; O2SAT 94
[2017-03-04 16:00] VITALS: BP 105/67; PULSE 87; RESP 16; TEMP 97.9; O2SAT 94
[2017-03-04 20:55] VITALS: BP 128/76; PULSE 92; RESP 19; TEMP 97.8; O2SAT 92
[2017-03-04] MEDS: diphenhydrAMINE HCL 50 MG CAP PO PRN (22:07)
[2017-03-04] MEDS: ENOXAPARIN SODIUM 40 MG/0.4 ML SYRINGE SQ SCH (22:08)
[2017-03-05 00:26] VITALS: BP 130/76; PULSE 89; RESP 18; TEMP 98; O2SAT 93
[2017-03-05 04:34] VITALS: BP 128/81; PULSE 87; RESP 18; TEMP 97.5; O2SAT 94
[2017-03-05] MEDS: LABETALOL HCL 100 MG TAB PO SCH ×3 (05:29→22:36)
[2017-03-05 07:45] VITALS: BP 126/77; PULSE 82; RESP 20; TEMP 98.6; O2SAT 95
[2017-03-05] MEDS: PRAVASTATIN SOD 40 MG TAB PO SCH (09:14)
[2017-03-05] MEDS: DOCUSATE SODIUM 50 MG/SENNA 8.6 MG TAB PO SCH ×2 (09:14→21:00)
[2017-03-05] MEDS: POTASSIUM CHLORIDE 20 MEQ CONTROLLED RELEASE TAB PO SCH (09:15)
[2017-03-05] MEDS: QUEtiapine FUMARATE 100 MG TAB PO SCH ×2 (09:15→13:03)
[2017-03-05] MEDS: PANTOPRAZOLE SOD 40 MG DELAYED RELEASE TAB PO SCH (09:15)
[2017-03-05] MEDS: amLODIPine BESYLATE 5 MG TAB PO SCH (09:15)
[2017-03-05 09:29] VITALS: O2SAT 95
--- NOTE | 2017-03-05 10:28 | HHI.PR ---
Subjective Remarks 03/05/2017: Follow up on patient with intracranial hemorrhage, basilar tip aneurysm s/p FUNERAL ARRANGER shunt. No complaints at this time. Afebrile, vital signs stable Objective Vitals Vital Signs Date Time Temp Pulse Resp B/P (MAP) Pulse Ox O2 Delivery O2 Flow Rate FiO2 03/05/17 09:29 95 03/05/17 07:45 98.6 82 20 126/77 (93) 95 03/05/17 04:34 97.5 87 18 128/81 (97) 94 03/05/17 00:26 98.0 89 18 130/76 (94) 93 03/04/17 20:55 97.8 92 19 128/76 (93) 92 03/04/17 16:00 97.9 87 16 105/67 (80) 94 03/04/17 12:00 98.2 98 17 128/80 (96) 94 I/O 03/04/17 03/04/17 03/04/17 03/05/17 03/05/17 03/05/17 06:59 14:59 22:59 06:59 14:59 22:59 Intake Total 120 ml 1200 ml 240 ml Output Total 0 ml 3 ml Balance 120 ml 1197 ml 240 ml Intake Oral 120 ml 1200 ml 240 ml Output Urine Total 0 ml 3 ml # Voids 1 1 Result Diagram: 03/03/17 0934 Objective Remarks GENERAL: Well-nourished, well-developed male patient, in no apparent distress. Awake and alert. Appears comfortable. SKIN: No rash. Warm and dry. HEENT: Normocephalic. Extraocular motions intact. No scleral icterus. No injection or drainage. Nose without bleeding. MMM. Airway patent. NECK: Trachea midline. Supple. CARDIOVASCULAR: RRR. No murmur appreciated. RESPIRATORY: Nonlabored. Clear to auscultation. Breath sounds equal bilaterally. No wheezes, rales, or rhonchi. GASTROINTESTINAL: Abdomen soft, nondistended and nontender. BS x 4. MUSCULOSKELETAL: Extremities without clubbing, cyanosis, or edema. NEUROLOGICAL: Awake and alert. Oriented to self only. Moves all 4 extremities spontaneously. Motor and sensory function grossly intact. Normal speech. 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 ICD Code: I60.8 - Other nontraumatic subarachnoid hemorrhage Status: Acute (2) Hypertension ICD Code: I10 - Essential (primary) hypertension Status: Chronic (3) Major neurocognitive disorder due to vascular disease, without behavioral disturbance, severe ICD Code: F01.50 - Vascular dementia without behavioral disturbance Status: Acute (4) Septic shock ICD Code: A41.9 - Sepsis, unspecified organism; R65.21 - Severe sepsis with septic shock Status: Resolved (5) Hydrocephalus ICD Code: G91.9 - Hydrocephalus, unspecified Status: Acute (6) Intracranial hemorrhage ICD Code: I62.9 - Nontraumatic intracranial hemorrhage, unspecified Status: Acute (7) Major neurocognitive disorder as late effect of traumatic brain injury with behavioral disturbance ICD Code: S06.9X9S - Unspecified intracranial injury with loss of consciousness of unspecified duration, sequela; F02.81 - Dementia in other diseases classified elsewhere with behavioral disturbance Status: Acute (8) Encephalopathy ICD Code: G93.40 - Encephalopathy, unspecified Status: Acute (9) Sepsis ICD Code: A41.9 - Sepsis, unspecified organism Status: Resolved (10) Pneumonia ICD Code: J18.9 - Pneumonia, unspecified organism Status: Acute (11) Protein-calorie malnutrition, mild ICD Code: E44.1 - Mild protein-calorie malnutrition Status: Acute (12) Acute respiratory failure with hypoxia and hypercarbia ICD Code: J96.01 - Acute respiratory failure with hypoxia; J96.02 - Acute respiratory failure with hypercapnia Status: Acute Assessment and Plan Mr. Nunez is a 51 year old male who was brought to the hospital as a trauma alert due to head injury after he fell in the bathroom and hit his head. Patient was unresponsive for approximately 15 minutes by the time ambulance services arrived. His mentation waxed and waned with GCS ranging from [address] head indicated subarachnoid hemorrhage, acute. Auditory hallucinations - Psychiatry consulted, recommended Seroquel, no new Episodes of Hallucinations. Intracranial hemorrhage, status post basilar artery coiling 10/05, Status post FUNERAL ARRANGER shunt on 11/24/2016 Chronic encephalopathy Hydrocephalus Cortical blindness - Neurology signed off. Neuropsychology following patient ultimately for discharge placement and assistance with recommendations. Per neuropsychology note, ongoing areas of concern include behavioral impulsivity, lack of insight and judgement. - Speech therapy recommends regular diet with thin liquids. Patient is eating well. PEG dc'd 01/08/17. - Continue Seroquel 100mg BID per psychiatry HTN - controlled - continue on Norvasc 5mg daily and Labetalol 100mg q8h Acute hypoxic hypercarbic respiratory failure, resolved - Tracheostomy 10/23/16, removed, old trach site healed. - Monitor respiratory status - stable on RA C. difficile colitis, resolved - Completed Flagyl on 10/23 - No diarrhea reported - off Lactinex Hypokalemia, resolved - Continue scheduled KCL 40 meq PO daily. - Follow and replace as needed. - potassium levels stable - monitor intermittently DVT prophylaxis: SCDs, YOUSIF emely, Lovenox. Ambulation. GI prophylaxis: Protonix. Discharge Planning Discharge planning ongoing. CM continues to address funding and placement issue. Pending SSI and medicaid. Problem Qualifiers (1) Hypertension: Areli Lane MD R3 Mar 05, 2017 10:28
[2017-03-05 12:30] VITALS: BP 134/82; PULSE 80; RESP 20; TEMP 98; O2SAT 94
[2017-03-05 21:16] VITALS: BP 127/77; PULSE 87; RESP 20; TEMP 97.8; O2SAT 93
[2017-03-05] MEDS: ENOXAPARIN SODIUM 40 MG/0.4 ML SYRINGE SQ SCH (22:36)
[2017-03-05] MEDS: diphenhydrAMINE HCL 50 MG CAP PO PRN (22:36)
[2017-03-06 01:03] VITALS: BP 119/73; PULSE 77; RESP 20; TEMP 97.5; O2SAT 93
[2017-03-06] MEDS: LABETALOL HCL 100 MG TAB PO SCH ×3 (04:00→23:43)
[2017-03-06 05:22] VITALS: BP 113/68; PULSE 69; RESP 20; TEMP 97.4; O2SAT 93
--- NOTE | 2017-03-06 08:11 | HHI.PR ---
Subjective Remarks Follow up on patient with intracranial hemorrhage, basilar tip aneurysm s/p AOC OPERATIONS INTELLIGENCE CHIEF shunt. Stable denied any pain, no nausea, vomit or diarrhea. Objective Vital Signs Date Time Temp Pulse Resp B/P (MAP) Pulse Ox O2 Delivery O2 Flow Rate FiO2 03/06/17 05:22 97.4 69 20 113/68 (83) 93 03/06/17 01:03 97.5 77 20 119/73 (88) 93 03/05/17 21:16 97.8 87 20 127/77 (94) 93 03/05/17 12:30 98.0 80 20 134/82 (99) 94 03/05/17 09:29 95 I/O 03/05/17 03/05/17 03/05/17 03/06/17 03/06/17 03/06/17 07:00 15:00 23:00 07:00 15:00 23:00 Intake Total 720 ml Balance 720 ml Intake Oral 720 ml # Voids 5 2 # Bowel Movements 1 Result Diagram: 03/03/17 0934 Imaging Last Impressions Chest X-Ray 02/18/17 0000 Signed Impressions: Service Date/Time: Saturday, February 18, 2017 10:51 - CONCLUSION: Diminished lung volumes. No infiltrate. Tyrese Raymond MD Abdomen X-Ray 02/18/17 0000 Signed Impressions: Service Date/Time: Saturday, February 18, 2017 10:56 - CONCLUSION: Unremarkable abdomen. Tyrese Raymond MD Gall Bladder Ultrasound 02/17/17 0000 Signed Impressions: Service Date/Time: Friday, February 17, 2017 17:45 - CONCLUSION: Mildly enlarged liver and small amount of gallbladder sludge. Tim Hammonds MD Head CT 12/09/16 0000 Signed Impressions: Service Date/Time: Friday, December 09, 2016 17:36 - CONCLUSION: 1. Right ventriculostomy tube remains in place with decrease in ventricular size since November 24. There is some encephalomalacia around the shunt and a probable small infarct in the left basal ganglia. No new hemorrhage or shift. Tip Harris MD Transcranial Doppler Study Complete 10/26/16 0700 Signed Impressions: Service Date/Time: Wednesday, October 26, 2016 08:20 - CONCLUSION: Minimal interval improvement with no evidence for vasospasm. Christian Song MD FACR Neck CTA 10/19/16 0000 Signed Impressions: Service Date/Time: Wednesday, October 19, 2016 14:19 - CONCLUSION: Negative for dissection or significant stenosis. Christian Song MD FACR Head CTA 10/19/16 Signed Impressions: Service Date/Time: Wednesday, October 19, 2016 14:19 - CONCLUSION: 1. Interval development of significant vasospasm in the left MCA and SRI territories. 2. Mild vasospasm in the basilar artery.. Gume Mckeon MD Cerebral Arteriogram 10/19/16 Signed Impressions: Service Date/Time: Wednesday, October 19, 2016 16:06 - CONCLUSION: 1. Vasospasm in the left MCA and SRI territories 2. Spasmolytic infusion, left internal carotid artery as above.. 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 Gume Mckeon MD Pelvis X-Ray 10/05/16109 Signed Impressions: Service Date/Time: Wednesday, October 05, 2016 01:22 - CONCLUSION: Unremarkable examination of the pelvis. Ruben Acuña Jr., MD Chest CT 10/05/16109 Signed Impressions: Service Date/Time: Wednesday, October 05, 2016 01:46 - CONCLUSION: 1. No acute intrathoracic abnormality. 2. Bibasilar atelectasis. 3. Cardiomegaly. 4. Prior granulomatous disease. Ruben Acuña Jr., MD Cervical Spine CT 10/05/16109 Signed Impressions: Service Date/Time: Wednesday, October 05, 2016 01:40 - CONCLUSION: 1. No fracture or dislocation. 2. Multilevel degenerative changes. Ruben Acuña Jr., MD Abdomen/Pelvis CT 10/05/16109 Signed Impressions: Service Date/Time: Wednesday, October 05, 2016 01:46 - CONCLUSION: 1. No acute trauma. 2. Rounded area of decreased density involving the pancreatic head. I cannot completely exclude pancreatic head mass. At some point MRI of the pancreas is suggested to further evaluate. 3. Focal area of poor enhancement involving the left kidney. This may relate to an area of parenchymal scarring. I cannot completely exclude a mass. This can be further assessed with MRI as well. Ruben Acuña Jr., MD Procedures 10/05/16 right frontal twist drill for ventriculostomy placement 10/20/16 arterial line placement 10/23/16 bedside percutaneous tracheostomy under direct bronchoscopic visualization 10/24/16 PEG tube placement at bedside Other Results Laboratory Tests Test 10/05/16 00:15 10/05/16 02:45 10/05/16 17:15 10/06/16 03:45 Bedside Hemoglobin 15.6 G/DL Bedside Hematocrit 46.0 % Eosinophils % 5 % Basophils % 2 % Atypical Lymphocytes % Activated Partial Thromboplast Time 21.0 SEC Fibrinogen 249 mg/dL Bedside Sodium 146 MMOL/L Bedside Potassium 4.4 MMOL/L Bedside Chloride 105 MMOL/L Bedside Blood Urea Nitrogen 30 MG/DL Bedside Creatinine 1.3 MG/DL Bedside Glucose 145 MG/DL Ethyl Alcohol Level LESS THAN 3 MG/DL Nasal Screen MRSA (PCR) NEGATIVE Urine Opiates Screen NEG Urine Barbiturates Screen NEG Urine Amphetamines Screen NEG Urine Benzodiazepines Screen NEG Urine Cocaine Screen NEG Urine Cannabinoids Screen NEG Blood Gas Puncture Site ART LINE Blood Gas Patient Temperature 98.6 Blood Gas HCO3 23 mmol/L Blood Gas Base Excess -1.0 mmol/L Blood Gas Oxygen Saturation 98 % Arterial Blood pH 7.40 Arterial Blood Partial Pressure CO2 38 mmHg Arterial Blood Partial Pressure O2 235 mmHg Arterial Blood Oxygen Content 17.9 Vol % Arterial Blood Carboxyhemoglobin 1.1 % Arterial Blood Methemoglobin 1.0 % Blood Gas Hemoglobin 12.7 G/DL Oxygen Delivery Device VENTILATOR Blood Gas Ventilator Setting AC/RR14/VT700/[id number] Blood Gas Inspired Oxygen 80 % Prothrombin Time 10.9 SEC Prothromb Time International Ratio 1.0 RATIO Lactic Acid Level 1.1 mmol/L Test 10/12/16 01:45 10/12/16 04:45 10/14/16 05:15 10/20/16 12:55 Urine WBC Clumps MANY Differential Total Cells Counted 100 Neutrophils % (Manual) 77 % Band Neutrophils % 16 % Lymphocytes % 5 % Monocytes % 2 % Neutrophils # (Manual) 22.6 TH/MM3 Platelet Estimate NORMAL Platelet Morphology Comment NORMAL Red Cell Morphology Comment NORMAL Random Vancomycin Level 7.4 COMMENT Urine Squamous Epithelial Cells <1 /hpf Test 10/21/16 09:20 10/25/16 11:10 11/06/16 20:00 11/08/16 04:45 CSF Volume (Tube 1) 9.0 ML CSF Supernatant Color (tube 1) CLEAR CSF Gross Blood (Tube 1) TRACE CSF WBC (Tube 1) 4 /MM3 CSF RBC (Tube 1) 112 /MM3 CSF Neutrophils 10 % CSF Lymphocytes 60 % CSF Monocytes 30 % CSF Glucose 112 MG/DL CSF Total Protein 28.8 MG/DL Urine Osmolality 290 MOSM/KG Urine Random Sodium 119 MEQ/L Serum Osmolality 303 MOSM/KG Blood Urea Nitrogen 16 MG/DL 10 MG/DL Creatinine 0.71 MG/DL 0.69 MG/DL Random Glucose 127 MG/DL 100 MG/DL Total Protein 6.6 GM/DL Albumin 2.3 GM/DL Calcium Level 7.8 MG/DL 8.2 MG/DL Magnesium Level 2.3 MG/DL 2.0 MG/DL Uric Acid 2.5 MG/DL Alkaline Phosphatase 67 U/L Aspartate Amino Transf (AST/SGOT) 28 U/L Alanine Aminotransferase (ALT/SGPT) 67 U/L Total Bilirubin 0.5 MG/DL Sodium Level 147 MEQ/L 148 MEQ/L Potassium Level 3.4 MEQ/L 3.7 MEQ/L Chloride Level 112 MEQ/L 114 MEQ/L Carbon Dioxide Level 26.0 MEQ/L 27.1 MEQ/L Protein Corrected Calcium 7.8 MG/DL Ovalocytes 1+ Acanthocytes OCC Phosphorus Level 3.0 MG/DL Test 11/14/16 06:00 11/17/16 08:11 12/14/16 07:36 01/18/17 18:19 Urine Transitional Epithelial Cells <1 /hpf Urine Calcium Oxalate Crystals RARE /hpf Urine Bacteria RARE /hpf Urine Hyaline Casts 11 /lpf Stool C. difficile Toxin (PCR) NEGATIVE Stl C. difficile Toxin Epiderm 027 PRESUMPTIVE NEGATIVE Blood Urea Nitrogen 14 MG/DL Creatinine 0.67 MG/DL Random Glucose 91 MG/DL Calcium Level 8.8 MG/DL Magnesium Level 2.0 MG/DL Sodium Level 143 MEQ/L Potassium Level 3.3 MEQ/L Chloride Level 107 MEQ/L Carbon Dioxide Level 25.0 MEQ/L Ammonia 26 MCMOL/L Test 01/20/17 09:35 02/06/17 08:20 02/17/17 09:45 02/17/17 18:04 Urine Mucus FEW /lpf Levetiracetam (Keppra) Level <2.0 mcg/mL Urine Color LIGHT-YELLOW Urine Turbidity CLEAR Urine pH 6.5 Urine Specific Floyd 1.009 Urine Protein NEG mg/dL Urine Glucose (UA) NEG mg/dL Urine Ketones NEG mg/dL Urine Occult Blood NEG Urine Nitrite NEG Urine Bilirubin NEG Urine Urobilinogen LESS THAN 2.0 MG/DL Urine Leukocyte Esterase NEG Urine RBC LESS THAN 1 /hpf Urine WBC 1 /hpf Microscopic Urinalysis Comment CULT NOT INDICATED Neutrophils (%) (Auto) 48.2 % Lymphocytes (%) (Auto) 35.2 % Monocytes (%) (Auto) 9.5 % Eosinophils (%) (Auto) 6.1 % Basophils (%) (Auto) 1.0 % Neutrophils # (Auto) 2.8 TH/MM3 Lymphocytes # (Auto) 2.1 TH/MM3 Monocytes # (Auto) 0.6 TH/MM3 Eosinophils # (Auto) 0.4 TH/MM3 Basophils # (Auto) 0.1 TH/MM3 CBC Comment DIFF FINAL Differential Comment Blood Urea Nitrogen 18 MG/DL Creatinine 1.17 MG/DL Random Glucose 81 MG/DL Total Protein 7.1 GM/DL Albumin 3.6 GM/DL Calcium Level 8.5 MG/DL Alkaline Phosphatase 58 U/L Aspartate Amino Transf (AST/SGOT) 11 U/L Alanine Aminotransferase (ALT/SGPT) 24 U/L Total Bilirubin 0.4 MG/DL Sodium Level 141 MEQ/L Potassium Level 4.1 MEQ/L Chloride Level 110 MEQ/L Carbon Dioxide Level 24.8 MEQ/L Lipase 85 U/L Test 02/18/17 17:10 02/24/17 08:28 03/03/17 09:34 Troponin I LESS THAN 0.02 NG/ML White Blood Count 6.8 TH/MM3 Red Blood Count 4.71 MIL/MM3 Hemoglobin 13.5 GM/DL Hematocrit 41.3 % Mean Corpuscular Volume 87.7 FL Mean Corpuscular Hemoglobin 28.8 PG Mean Corpuscular Hemoglobin Concent 32.8 % Red Cell Distribution Width 14.4 % Platelet Count 206 TH/MM3 Mean Platelet Volume 9.1 FL Blood Urea Nitrogen 19 MG/DL Creatinine 1.12 MG/DL Random Glucose 76 MG/DL Calcium Level 8.4 MG/DL Sodium Level 143 MEQ/L Potassium Level 3.7 MEQ/L 3.8 MEQ/L Chloride Level 110 MEQ/L Carbon Dioxide Level 25.3 MEQ/L Anion Gap 8 MEQ/L Estimat Glomerular Filtration Rate 69 ML/MIN Objective Remarks GENERAL: Well-nourished, well-developed male patient, in no apparent distress. Awake and alert. Sitting up at nurses station. Appears comfortable. SKIN: No rash. Warm and dry. HEENT: Normocephalic. Extraocular motions intact. No scleral icterus. No injection or drainage. Nose without bleeding. MMM. Airway patent. NECK: Trachea midline. Supple. CARDIOVASCULAR: RRR. No murmur appreciated. RESPIRATORY: Nonlabored. Clear to auscultation. Breath sounds equal bilaterally. No wheezes, rales, or rhonchi. GASTROINTESTINAL: Abdomen soft, nondistended and nontender. BS x 4. MUSCULOSKELETAL: Extremities without clubbing, cyanosis, or edema. NEUROLOGICAL: Awake and alert. Oriented to self only. Moves all 4 extremities spontaneously. Motor and sensory function grossly intact. Normal speech. Medications and IVs Current Medications Medications (Trade) Dose Ordered Sig/Nava Route Start Time Stop Time Status Last Admin (Tylenol) 650 mg Q6H PRN PO 10/05/16 02:45 02/26/17 09:52 (Zofran Inj) 4 mg Q6H PRN IV 10/05/16 02:45 11/27/16 23:26 Miscellaneous Information 1 Q361D XX 10/05/16 02:45 10/05/16 02:45 (Pravachol) 40 mg DAILY PO 10/05/16 09:00 03/05/17 09:14 (Lovenox Inj) 40 mg Q24H SQ 10/23/16 21:00 Future hold 03/05/17 22:36 (Trandate) 100 mg Q8H PO 11/03/16 20:00 03/05/17 22:36 (Norvasc) 5 mg DAILY PO 11/04/16 09:00 03/05/17 09:15 (Imodium) 2 mg UNSCH PRN PO 11/09/16 09:45 11/29/16 12:57 (Lomotil Tab) 1 tab Q6H PRN PO 11/09/16 09:45 (Lactulose Liq) 30 ml QID PRN PO 12/09/16 13:45 (Protonix) 40 mg DAILY PO 12/16/16 09:00 9/3/17 09:15 (Benadryl) 50 mg Q6H PRN PO 12/20/16 17:45 03/05/17 22:36 (Colace) 100 mg Q12H PRN PO 02/12/17 00:15 (Duoneb Neb) 1 ampule Q4HR NEB PRN INH 02/12/17 12:00 (KCl) 40 meq DAILY PO 02/13/17 09:00 03/05/17 09:15 (Tonie-Colace) 1 tab BID PO 02/18/17 09:30 03/05/17 09:14 (SEROquel) 200 mg BID@09,12 PO 02/24/17 09:00 03/05/17 13:03 A/P Assessment and Plan Mr. Nunez is a 51 year old male who was brought to the hospital as a trauma alert due to head injury after he fell in the bathroom and hit his head. Patient was unresponsive for approximately 15 minutes by the time ambulance services arrived. His mentation waxed and waned with GCS ranging from [address] head indicated subarachnoid hemorrhage, acute. Auditory hallucinations - Psychiatry consulted, recommended Seroquel, no new Episodes of Hallucinations. Intracranial hemorrhage, status post basilar artery coiling 10/05, Status post [employer] INTELLIGENCE CHIEF shunt on 11/24/2016 Chronic encephalopathy Hydrocephalus Cortical blindness - Neurology signed off. Neuropsychology following patient ultimately for discharge placement and assistance with recommendations. Per neuropsychology note, ongoing areas of concern include behavioral impulsivity, lack of insight and judgement. - Speech therapy recommends regular diet with thin liquids. Patient is eating well. PEG dc'd 01/08/17. - Continue Seroquel 100mg BID per psychiatry HTN - controlled - continue on Norvasc 5mg daily and Labetalol 100mg q8h Acute hypoxic hypercarbic respiratory failure, resolved - Tracheostomy 10/23/16, removed, old trach site healed. - Monitor respiratory status - stable on RA C. difficile colitis, resolved - Completed Flagyl on 10/23 - No diarrhea reported - off Lactinex Hypokalemia, resolved - Continue scheduled KCL 40 meq PO daily. - Follow and replace as needed. - potassium levels stable - monitor intermittently DVT prophylaxis: SCDs, YOUSIF hose, Lovenox. Ambulation. GI prophylaxis: Protonix. Discharge Planning Discharge planning ongoing. CM continues to address funding and placement issue. Pending SSI and medicaid. Luciano Gomez MD Mar 06, 2017 08:11
[2017-03-06] MEDS: QUEtiapine FUMARATE 100 MG TAB PO SCH ×2 (08:14→12:15)
[2017-03-06] MEDS: DOCUSATE SODIUM 50 MG/SENNA 8.6 MG TAB PO SCH ×2 (08:15→23:42)
[2017-03-06] MEDS: POTASSIUM CHLORIDE 20 MEQ CONTROLLED RELEASE TAB PO SCH (08:15)
[2017-03-06] MEDS: PANTOPRAZOLE SOD 40 MG DELAYED RELEASE TAB PO SCH (08:15)
[2017-03-06] MEDS: PRAVASTATIN SOD 40 MG TAB PO SCH (08:15)
[2017-03-06] MEDS: amLODIPine BESYLATE 5 MG TAB PO SCH (08:15)
[2017-03-06 08:30] VITALS: BP 125/86; PULSE 74; RESP 20; TEMP 97.5; O2SAT 95
[2017-03-06 12:18] VITALS: BP 124/80; PULSE 90; RESP 20; TEMP 97.6; O2SAT 93
[2017-03-06 16:35] VITALS: BP 129/83; PULSE 89; RESP 18; TEMP 98.3; O2SAT 93
[2017-03-06 20:45] VITALS: BP 130/60; PULSE 100; RESP 17; TEMP 98.1; O2SAT 97
[2017-03-06] MEDS: diphenhydrAMINE HCL 50 MG CAP PO PRN (23:42)
[2017-03-06] MEDS: ENOXAPARIN SODIUM 40 MG/0.4 ML SYRINGE SQ SCH (23:50)
[2017-03-07] VITALS (7 sets, daily range): BP systolic 113–130; BP diastolic 59–88; PULSE 18–95; RESP 18–20; TEMP 97.5–98.8; O2SAT 94–98
[2017-03-07] MEDS: LABETALOL HCL 100 MG TAB PO SCH ×3 (04:00→21:13)
--- NOTE | 2017-03-07 08:53 | HHI.PR ---
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 Stable denied any pain. 03/07: Seen in his bedroom discussed with nurse Miss Frost, eating at this time. Objective Vital Signs Date Time Temp Pulse Resp B/P (MAP) Pulse Ox O2 Delivery O2 Flow Rate FiO2 03/07/17 08:48 97.5 18 18 129/79 (96) 94 03/07/17 04:00 98.1 80 20 122/62 (82) 03/07/17 00:30 98.8 69 18 120/59 (79) 98 03/06/17 20:45 98.1 100 17 130/60 (83) 97 03/06/17 16:35 98.3 89 18 129/83 (98) 93 03/06/17 12:18 97.6 90 20 124/80 (95) 93 I/O 03/06/17 03/06/17 03/06/17 03/07/17 03/07/17 03/07/17 06:59 14:59 22:59 06:59 14:59 22:59 Intake Total 1500 ml 1000 ml Balance 1500 ml 1000 ml Intake Oral 1500 ml 1000 ml # Voids 2 5 4 # Bowel Movements 1 0 Result Diagram: 03/03/17 0934 Imaging Last Impressions Chest X-Ray 02/18/17 0000 Signed Impressions: Service Date/Time: Saturday, February 18, 2017 10:51 - CONCLUSION: Diminished lung volumes. No infiltrate. Tyrese Raymond MD Abdomen X-Ray 02/18/17 0000 Signed Impressions: Service Date/Time: Saturday, February 18, 2017 10:56 - CONCLUSION: Unremarkable abdomen. Tyrese Raymond MD Gall Bladder Ultrasound 02/17/17 0000 Signed Impressions: Service Date/Time: Friday, February 17, 2017 17:45 - CONCLUSION: Mildly enlarged liver and small amount of gallbladder sludge. Tim Hammonds MD Head CT 12/09/16 0000 Signed Impressions: Service Date/Time: Friday, December 09, 2016 17:36 - CONCLUSION: 1. Right ventriculostomy tube remains in place with decrease in ventricular size since November 24. There is some encephalomalacia around the shunt and a probable small infarct in the left basal ganglia. No new hemorrhage or shift. Tip Harris MD Transcranial Doppler Study Complete 10/26/16 0700 Signed Impressions: Service Date/Time: Wednesday, October 26, 2016 08:20 - CONCLUSION: Minimal interval improvement with no evidence for vasospasm. Christian Song MD FACR Neck CTA 10/19/16 0000 Signed Impressions: Service Date/Time: Wednesday, October 19, 2016 14:19 - CONCLUSION: Negative for dissection or significant stenosis. Christian Song MD FACR Head CTA 10/19/16 0000 Signed Impressions: Service Date/Time: Wednesday, October 19, 2016 14:19 - CONCLUSION: 1. Interval development of significant vasospasm in the left MCA and SRI territories. 2. Mild vasospasm in the basilar artery.. Gume Mckeon MD Cerebral Arteriogram 10/19/16 0000 Signed Impressions: Service Date/Time: Wednesday, October 19, 2016 16:06 - CONCLUSION: 1. Vasospasm in the left MCA and SRI territories 2. Spasmolytic infusion, left internal carotid artery as above.. 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 Gume Mckeon MD Pelvis X-Ray 10/05/16109 Signed Impressions: Service Date/Time: Wednesday, October 05, 2016 01:22 - CONCLUSION: Unremarkable examination of the pelvis. Ruben Acuña Jr., MD Chest CT 10/05/16109 Signed Impressions: Service Date/Time: Wednesday, October 05, 2016 01:46 - CONCLUSION: 1. No acute intrathoracic abnormality. 2. Bibasilar atelectasis. 3. Cardiomegaly. 4. Prior granulomatous disease. Ruben Acuña Jr., MD Cervical Spine CT 10/05/16109 Signed Impressions: Service Date/Time: Wednesday, October 05, 2016 01:40 - CONCLUSION: 1. No fracture or dislocation. 2. Multilevel degenerative changes. Ruben Acuña Jr., MD Abdomen/Pelvis CT 10/05/16109 Signed Impressions: Service Date/Time: Wednesday, October 05, 2016 01:46 - CONCLUSION: 1. No acute trauma. 2. Rounded area of decreased density involving the pancreatic head. I cannot completely exclude pancreatic head mass. At some point MRI of the pancreas is suggested to further evaluate. 3. Focal area of poor enhancement involving the left kidney. This may relate to an area of parenchymal scarring. I cannot completely exclude a mass. This can be further assessed with MRI as well. Ruben Acuña Jr., MD Procedures 10/05/16 right frontal twist drill for ventriculostomy placement 10/20/16 arterial line placement 10/23/16 bedside percutaneous tracheostomy under direct bronchoscopic visualization 10/24/16 PEG tube placement at bedside Other Results Laboratory Tests Test 10/05/16 00:15 10/05/16 02:45 10/05/16 17:15 10/06/16 03:45 Bedside Hemoglobin 15.6 G/DL Bedside Hematocrit 46.0 % Eosinophils % 5 % Basophils % 2 % Atypical Lymphocytes % Activated Partial Thromboplast Time 21.0 SEC Fibrinogen 249 mg/dL Bedside Sodium 146 MMOL/L Bedside Potassium 4.4 MMOL/L Bedside Chloride 105 MMOL/L Bedside Blood Urea Nitrogen 30 MG/DL Bedside Creatinine 1.3 MG/DL Bedside Glucose 145 MG/DL Ethyl Alcohol Level LESS THAN 3 MG/DL Nasal Screen MRSA (PCR) NEGATIVE Urine Opiates Screen NEG Urine Barbiturates Screen NEG Urine Amphetamines Screen NEG Urine Benzodiazepines Screen NEG Urine Cocaine Screen NEG Urine Cannabinoids Screen NEG Blood Gas Puncture Site ART LINE Blood Gas Patient Temperature 98.6 Blood Gas HCO3 23 mmol/L Blood Gas Base Excess -1.0 mmol/L Blood Gas Oxygen Saturation 98 % Arterial Blood pH 7.40 Arterial Blood Partial Pressure CO2 38 mmHg Arterial Blood Partial Pressure O2 235 mmHg Arterial Blood Oxygen Content 17.9 Vol % Arterial Blood Carboxyhemoglobin 1.1 % Arterial Blood Methemoglobin 1.0 % Blood Gas Hemoglobin 12.7 G/DL Oxygen Delivery Device VENTILATOR Blood Gas Ventilator Setting [id number]/RR14/VT700/[id number] Blood Gas Inspired Oxygen 80 % Prothrombin Time 10.9 SEC Prothromb Time International Ratio 1.0 RATIO Lactic Acid Level 1.1 mmol/L Test 10/12/16 01:45 10/12/16 04:45 10/14/16 05:15 10/20/16 12:55 Urine WBC Clumps MANY Differential Total Cells Counted 100 Neutrophils % (Manual) 77 % Band Neutrophils % 16 % Lymphocytes % 5 % Monocytes % 2 % Neutrophils # (Manual) 22.6 TH/MM3 Platelet Estimate NORMAL Platelet Morphology Comment NORMAL Red Cell Morphology Comment NORMAL Random Vancomycin Level 7.4 COMMENT Urine Squamous Epithelial Cells <1 /hpf Test 10/21/16 09:20 10/25/16 11:10 11/06/16 20:00 11/08/16 04:45 CSF Volume (Tube 1) 9.0 ML CSF Supernatant Color (tube 1) CLEAR CSF Gross Blood (Tube 1) TRACE CSF WBC (Tube 1) 4 /MM3 CSF RBC (Tube 1) 112 /MM3 CSF Neutrophils 10 % CSF Lymphocytes 60 % CSF Monocytes 30 % CSF Glucose 112 MG/DL CSF Total Protein 28.8 MG/DL Urine Osmolality 290 MOSM/KG Urine Random Sodium 119 MEQ/L Serum Osmolality 303 MOSM/KG Blood Urea Nitrogen 16 MG/DL 10 MG/DL Creatinine 0.71 MG/DL 0.69 MG/DL Random Glucose 127 MG/DL 100 MG/DL Total Protein 6.6 GM/DL Albumin 2.3 GM/DL Calcium Level 7.8 MG/DL 8.2 MG/DL Magnesium Level 2.3 MG/DL 2.0 MG/DL Uric Acid 2.5 MG/DL Alkaline Phosphatase 67 U/L Aspartate Amino Transf (AST/SGOT) 28 U/L Alanine Aminotransferase (ALT/SGPT) 67 U/L Total Bilirubin 0.5 MG/DL Sodium Level 147 MEQ/L 148 MEQ/L Potassium Level 3.4 MEQ/L 3.7 MEQ/L Chloride Level 112 MEQ/L 114 MEQ/L Carbon Dioxide Level 26.0 MEQ/L 27.1 MEQ/L Protein Corrected Calcium 7.8 MG/DL Ovalocytes 1+ Acanthocytes OCC Phosphorus Level 3.0 MG/DL Test 11/14/16 06:00 11/17/16 08:11 12/14/16 07:36 01/18/17 18:19 Urine Transitional Epithelial Cells <1 /hpf Urine Calcium Oxalate Crystals RARE /hpf Urine Bacteria RARE /hpf Urine Hyaline Casts 11 /lpf Stool C. difficile Toxin (PCR) NEGATIVE Stl C. difficile Toxin Epiderm 027 PRESUMPTIVE NEGATIVE Blood Urea Nitrogen 14 MG/DL Creatinine 0.67 MG/DL Random Glucose 91 MG/DL Calcium Level 8.8 MG/DL Magnesium Level 2.0 MG/DL Sodium Level 143 MEQ/L Potassium Level 3.3 MEQ/L Chloride Level 107 MEQ/L Carbon Dioxide Level 25.0 MEQ/L Ammonia 26 MCMOL/L Test 01/20/17 09:35 02/06/17 08:20 02/17/17 09:45 02/17/17 18:04 Urine Mucus FEW /lpf Levetiracetam (Keppra) Level <2.0 mcg/mL Urine Color LIGHT-YELLOW Urine Turbidity CLEAR Urine pH 6.5 Urine Specific [place] 1.009 Urine Protein NEG mg/dL Urine Glucose (UA) NEG mg/dL Urine Ketones NEG mg/dL Urine Occult Blood NEG Urine Nitrite NEG Urine Bilirubin NEG Urine Urobilinogen LESS THAN 2.0 MG/DL Urine Leukocyte Esterase NEG Urine RBC LESS THAN 1 /hpf Urine WBC 1 /hpf Microscopic Urinalysis Comment CULT NOT INDICATED Neutrophils (%) (Auto) 48.2 % Lymphocytes (%) (Auto) 35.2 % Monocytes (%) (Auto) 9.5 % Eosinophils (%) (Auto) 6.1 % Basophils (%) (Auto) 1.0 % Neutrophils # (Auto) 2.8 TH/MM3 Lymphocytes # (Auto) 2.1 TH/MM3 Monocytes # (Auto) 0.6 TH/MM3 Eosinophils # (Auto) 0.4 TH/MM3 Basophils # (Auto) 0.1 TH/MM3 CBC Comment DIFF FINAL Differential Comment Blood Urea Nitrogen 18 MG/DL Creatinine 1.17 MG/DL Random Glucose 81 MG/DL Total Protein 7.1 GM/DL Albumin 3.6 GM/DL Calcium Level 8.5 MG/DL Alkaline Phosphatase 58 U/L Aspartate Amino Transf (AST/SGOT) 11 U/L Alanine Aminotransferase (ALT/SGPT) 24 U/L Total Bilirubin 0.4 MG/DL Sodium Level 141 MEQ/L Potassium Level 4.1 MEQ/L Chloride Level 110 MEQ/L Carbon Dioxide Level 24.8 MEQ/L Lipase 85 U/L Test 02/18/17 17:10 02/24/17 08:28 03/03/17 09:34 Troponin I LESS THAN 0.02 NG/ML White Blood Count 6.8 TH/MM3 Red Blood Count 4.71 MIL/MM3 Hemoglobin 13.5 GM/DL Hematocrit 41.3 % Mean Corpuscular Volume 87.7 FL Mean Corpuscular Hemoglobin 28.8 PG Mean Corpuscular Hemoglobin Concent 32.8 % Red Cell Distribution Width 14.4 % Platelet Count 206 TH/MM3 Mean Platelet Volume 9.1 FL Blood Urea Nitrogen 19 MG/DL Creatinine 1.12 MG/DL Random Glucose 76 MG/DL Calcium Level 8.4 MG/DL Sodium Level 143 MEQ/L Potassium Level 3.7 MEQ/L 3.8 MEQ/L Chloride Level 110 MEQ/L Carbon Dioxide Level 25.3 MEQ/L Anion Gap 8 MEQ/L Estimat Glomerular Filtration Rate 69 ML/MIN Objective Remarks GENERAL: Well-nourished, well-developed male patient, in no apparent distress. Awake and alert. Sitting up at nurses station. Appears comfortable. SKIN: No rash. Warm and dry. HEENT: Normocephalic. Extraocular motions intact. No scleral icterus. No injection or drainage. Nose without bleeding. MMM. Airway patent. NECK: Trachea midline. Supple. CARDIOVASCULAR: RRR. No murmur appreciated. RESPIRATORY: Nonlabored. Clear to auscultation. Breath sounds equal bilaterally. No wheezes, rales, or rhonchi. GASTROINTESTINAL: Abdomen soft, nondistended and nontender. BS x 4. MUSCULOSKELETAL: Extremities without clubbing, cyanosis, or edema. NEUROLOGICAL: Awake and alert. Oriented to self only. Moves all 4 extremities spontaneously. Motor and sensory function grossly intact. Normal speech. Medications and IVs Current Medications Medications (Trade) Dose Ordered Sig/Nava Route Start Time Stop Time Status Last Admin (Tylenol) 650 mg Q6H PRN PO 10/05/16 02:45 02/26/17 09:52 (Zofran Inj) 4 mg Q6H PRN IV 10/05/16 02:45 11/27/16 23:26 Miscellaneous Information 1 Q361D XX 10/05/16 02:45 10/05/16 02:45 (Pravachol) 40 mg DAILY PO 10/05/16 09:00 03/06/17 08:15 (Lovenox Inj) 40 mg Q24H SQ 10/23/16 21:00 Future hold 03/06/17 23:50 (Trandate) 100 mg Q8H PO 11/03/16 20:00 03/06/17 23:43 (Norvasc) 5 mg DAILY PO 11/04/16 09:00 03/06/17 08:15 (Imodium) 2 mg UNSCH PRN PO 11/09/16 09:45 11/29/16 12:57 (Lomotil Tab) 1 tab Q6H PRN PO 11/09/16 09:45 (Lactulose Liq) 30 ml QID PRN PO 12/09/16 13:45 (Protonix) 40 mg DAILY PO 12/16/16 09:00 03/06/17 08:15 (Benadryl) 50 mg Q6H PRN PO 12/20/16 17:45 03/06/17 23:42 (Colace) 100 mg Q12H PRN PO 02/12/17 00:15 (Duoneb Neb) 1 ampule Q4HR NEB PRN INH 02/12/17 12:00 (KCl) 40 meq DAILY PO 02/13/17 09:00 03/06/17 08:15 (Tonie-Colace) 1 tab BID PO 02/18/17 09:30 03/06/17 23:42 (SEROquel) 200 mg BID@09,12 PO 02/24/17 09:00 03/06/17 12:15 A/P Assessment and Plan Mr. Nunez is a 51 year old male who was brought to the hospital as a trauma alert due to head injury after he fell in the bathroom and hit his head. Patient was unresponsive for approximately 15 minutes by the time ambulance services arrived. His mentation waxed and waned with GCS ranging from [address] head indicated subarachnoid hemorrhage, acute. Auditory hallucinations - Psychiatry consulted, recommended Seroquel, no new Episodes of Hallucinations. Intracranial hemorrhage, status post basilar artery coiling 10/05, Status post CONTENT SPECIALIST shunt on 11/24/2016 Chronic encephalopathy Hydrocephalus Cortical blindness - Neurology signed off. Neuropsychology following patient ultimately for discharge placement and assistance with recommendations. Per neuropsychology note, ongoing areas of concern include behavioral impulsivity, lack of insight and judgement. - Speech therapy recommends regular diet with thin liquids. Patient is eating well. PEG dc'd 01/08/17. - Continue Seroquel 100mg BID per psychiatry HTN - controlled - continue on Norvasc 5mg daily and Labetalol 100mg q8h Acute hypoxic hypercarbic respiratory failure, resolved - Tracheostomy 10/23/16, removed, old trach site healed. - Monitor respiratory status - stable on RA C. difficile colitis, resolved - Completed Flagyl on 10/23 - No diarrhea reported - off Lactinex Hypokalemia, resolved - Continue scheduled KCL 40 meq PO daily. - Follow and replace as needed. - potassium levels stable - monitor intermittently DVT prophylaxis: SCDs, YOUSIF han, Lovenox. Ambulation. GI prophylaxis: Protonix. Discharge Planning Discharge planning ongoing. CM continues to address funding and placement issue. Pending SSI and medicaid. Luciano Gomez MD Mar 07, 2017 08:53
[2017-03-07] MEDS: amLODIPine BESYLATE 5 MG TAB PO SCH (09:10)
[2017-03-07] MEDS: PANTOPRAZOLE SOD 40 MG DELAYED RELEASE TAB PO SCH (09:10)
[2017-03-07] MEDS: QUEtiapine FUMARATE 100 MG TAB PO SCH ×2 (09:10→11:54)
[2017-03-07] MEDS: POTASSIUM CHLORIDE 20 MEQ CONTROLLED RELEASE TAB PO SCH (09:10)
[2017-03-07] MEDS: PRAVASTATIN SOD 40 MG TAB PO SCH (09:11)
[2017-03-07] MEDS: DOCUSATE SODIUM 50 MG/SENNA 8.6 MG TAB PO SCH ×2 (09:11→21:13)
[2017-03-07] MEDS: ENOXAPARIN SODIUM 40 MG/0.4 ML SYRINGE SQ SCH (21:12)
[2017-03-07] MEDS: ACETAMINOPHEN 325 MG TAB PO PRN (21:12)
[2017-03-08] VITALS: BP 125/88; PULSE 86; RESP 19; TEMP 98; O2SAT 98
[2017-03-08] MEDS: LABETALOL HCL 100 MG TAB PO SCH ×3 (04:21→22:42)
[2017-03-08 04:30] VITALS: BP 104/70; PULSE 70; RESP 18; TEMP 98.3; O2SAT 94
[2017-03-08 08:06] VITALS: BP 104/84; PULSE 88; RESP 18; TEMP 98; O2SAT 95
[2017-03-08] MEDS: PANTOPRAZOLE SOD 40 MG DELAYED RELEASE TAB PO SCH (08:11)
[2017-03-08] MEDS: POTASSIUM CHLORIDE 20 MEQ CONTROLLED RELEASE TAB PO SCH (08:11)
[2017-03-08] MEDS: DOCUSATE SODIUM 50 MG/SENNA 8.6 MG TAB PO SCH ×2 (08:11→22:43)
[2017-03-08] MEDS: QUEtiapine FUMARATE 100 MG TAB PO SCH ×2 (08:11→11:58)
[2017-03-08] MEDS: amLODIPine BESYLATE 5 MG TAB PO SCH (08:11)
[2017-03-08] MEDS: PRAVASTATIN SOD 40 MG TAB PO SCH (08:11)
--- NOTE | 2017-03-08 08:20 | HHI.PR ---
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 Stable denied any pain. 03/08: Stable no complaint. Objective Vital Signs Date Time Temp Pulse Resp B/P (MAP) Pulse Ox O2 Delivery O2 Flow Rate FiO2 03/08/17 08:06 98.0 88 18 104/84 (91) 95 03/08/17 00:00 98.0 86 19 125/88 (100) 98 03/07/17 22:50 18 03/07/17 20:50 98.4 88 18 130/72 (91) 94 03/07/17 15:46 97.8 95 18 113/79 (90) 94 03/07/17 12:02 97.8 85 18 117/77 (90) 94 03/07/17 08:48 97.5 18 18 129/79 (96) 94 I/O 03/07/17 03/07/17 03/07/17 03/08/17 03/08/17 03/08/17 07:00 15:00 23:00 07:00 15:00 23:00 Intake Total 1000 ml 240 ml 1000 ml Balance 1000 ml 240 ml 1000 ml Intake Oral 1000 ml 240 ml 1000 ml # Voids 4 4 2 # Bowel Movements 0 1 0 Imaging Last Impressions Chest X-Ray 02/18/17 0000 Signed Impressions: Service Date/Time: Saturday, February 18, 2017 10:51 - CONCLUSION: Diminished lung volumes. No infiltrate. Tyrese Raymond MD Abdomen X-Ray 02/18/17 0000 Signed Impressions: Service Date/Time: Saturday, February 18, 2017 10:56 - CONCLUSION: Unremarkable abdomen. Tyrese Raymond MD Gall Bladder Ultrasound 02/17/17 0000 Signed Impressions: Service Date/Time: Friday, February 17, 2017 17:45 - CONCLUSION: Mildly enlarged liver and small amount of gallbladder sludge. Tim Hammonds MD Head CT 12/09/16 0000 Signed Impressions: Service Date/Time: Friday, December 09, 2016 17:36 - CONCLUSION: 1. Right ventriculostomy tube remains in place with decrease in ventricular size since November 24. There is some encephalomalacia around the shunt and a probable small infarct in the left basal ganglia. No new hemorrhage or shift. Tip Harris MD Transcranial Doppler Study Complete 10/26/16 0700 Signed Impressions: Service Date/Time: Wednesday, October 26, 2016 08:20 - CONCLUSION: Minimal interval improvement with no evidence for vasospasm. Christian Song MD FACR Neck CTA 10/19/16 0000 Signed Impressions: Service Date/Time: Wednesday, October 19, 2016 14:19 - CONCLUSION: Negative for dissection or significant stenosis. Christian Song MD FACR Head CTA 10/19/16 0000 Signed Impressions: Service Date/Time: Wednesday, October 19, 2016 14:19 - CONCLUSION: 1. Interval development of significant vasospasm in the left MCA and SRI territories. 2. Mild vasospasm in the basilar artery.. Gume Mckeon MD Cerebral Arteriogram 10/19/16 0000 Signed Impressions: Service Date/Time: Wednesday, October 19, 2016 16:06 - CONCLUSION: 1. Vasospasm in the left MCA and SRI territories 2. Spasmolytic infusion, left internal carotid artery as above.. 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 Gume Mckeon MD Pelvis X-Ray 10/05/16109 Signed Impressions: Service Date/Time: Wednesday, October 05, 2016 01:22 - CONCLUSION: Unremarkable examination of the pelvis. Ruben Acuña Jr., MD Chest CT 10/05/16109 Signed Impressions: Service Date/Time: Wednesday, October 05, 2016 01:46 - CONCLUSION: 1. No acute intrathoracic abnormality. 2. Bibasilar atelectasis. 3. Cardiomegaly. 4. Prior granulomatous disease. Ruben Acuña Jr., MD Cervical Spine CT 10/05/16109 Signed Impressions: Service Date/Time: Wednesday, October 05, 2016 01:40 - CONCLUSION: 1. No fracture or dislocation. 2. Multilevel degenerative changes. Ruben Acuña Jr., MD Abdomen/Pelvis CT 10/05/16109 Signed Impressions: Service Date/Time: Wednesday, October 05, 2016 01:46 - CONCLUSION: 1. No acute trauma. 2. Rounded area of decreased density involving the pancreatic head. I cannot completely exclude pancreatic head mass. At some point MRI of the pancreas is suggested to further evaluate. 3. Focal area of poor enhancement involving the left kidney. This may relate to an area of parenchymal scarring. I cannot completely exclude a mass. This can be further assessed with MRI as well. Ruben Acuña Jr., MD Procedures 10/05/16 right frontal twist drill for ventriculostomy placement 10/20/16 arterial line placement 10/23/16 bedside percutaneous tracheostomy under direct bronchoscopic visualization 10/24/16 PEG tube placement at bedside Other Results Laboratory Tests Test 10/05/16 00:15 10/05/16 02:45 10/05/16 17:15 10/06/16 03:45 Bedside Hemoglobin 15.6 G/DL Bedside Hematocrit 46.0 % Eosinophils % 5 % Basophils % 2 % Atypical Lymphocytes % Activated Partial Thromboplast Time 21.0 SEC Fibrinogen 249 mg/dL Bedside Sodium 146 MMOL/L Bedside Potassium 4.4 MMOL/L Bedside Chloride 105 MMOL/L Bedside Blood Urea Nitrogen 30 MG/DL Bedside Creatinine 1.3 MG/DL Bedside Glucose 145 MG/DL Ethyl Alcohol Level LESS THAN 3 MG/DL Nasal Screen MRSA (PCR) NEGATIVE Urine Opiates Screen NEG Urine Barbiturates Screen NEG Urine Amphetamines Screen NEG Urine Benzodiazepines Screen NEG Urine Cocaine Screen NEG Urine Cannabinoids Screen NEG Blood Gas Puncture Site ART LINE Blood Gas Patient Temperature 98.6 Blood Gas HCO3 23 mmol/L Blood Gas Base Excess -1.0 mmol/L Blood Gas Oxygen Saturation 98 % Arterial Blood pH 7.40 Arterial Blood Partial Pressure CO2 38 mmHg Arterial Blood Partial Pressure O2 235 mmHg Arterial Blood Oxygen Content 17.9 Vol % Arterial Blood Carboxyhemoglobin 1.1 % Arterial Blood Methemoglobin 1.0 % Blood Gas Hemoglobin 12.7 G/DL Oxygen Delivery Device VENTILATOR Blood Gas Ventilator Setting AC/RR14/VT700/[id number] Blood Gas Inspired Oxygen 80 % Prothrombin Time 10.9 SEC Prothromb Time International Ratio 1.0 RATIO Lactic Acid Level 1.1 mmol/L Test 10/12/16 01:45 10/12/16 04:45 10/14/16 05:15 10/20/16 12:55 Urine WBC Clumps MANY Differential Total Cells Counted 100 Neutrophils % (Manual) 77 % Band Neutrophils % 16 % Lymphocytes % 5 % Monocytes % 2 % Neutrophils # (Manual) 22.6 TH/MM3 Platelet Estimate NORMAL Platelet Morphology Comment NORMAL Red Cell Morphology Comment NORMAL Random Vancomycin Level 7.4 COMMENT Urine Squamous Epithelial Cells <1 /hpf Test 10/21/16 09:20 10/25/16 11:10 11/06/16 20:00 11/08/16 04:45 CSF Volume (Tube 1) 9.0 ML CSF Supernatant Color (tube 1) CLEAR CSF Gross Blood (Tube 1) TRACE CSF WBC (Tube 1) 4 /MM3 CSF RBC (Tube 1) 112 /MM3 CSF Neutrophils 10 % CSF Lymphocytes 60 % CSF Monocytes 30 % CSF Glucose 112 MG/DL CSF Total Protein 28.8 MG/DL Urine Osmolality 290 MOSM/KG Urine Random Sodium 119 MEQ/L Serum Osmolality 303 MOSM/KG Blood Urea Nitrogen 16 MG/DL 10 MG/DL Creatinine 0.71 MG/DL 0.69 MG/DL Random Glucose 127 MG/DL 100 MG/DL Total Protein 6.6 GM/DL Albumin 2.3 GM/DL Calcium Level 7.8 MG/DL 8.2 MG/DL Magnesium Level 2.3 MG/DL 2.0 MG/DL Uric Acid 2.5 MG/DL Alkaline Phosphatase 67 U/L Aspartate Amino Transf (AST/SGOT) 28 U/L Alanine Aminotransferase (ALT/SGPT) 67 U/L Total Bilirubin 0.5 MG/DL Sodium Level 147 MEQ/L 148 MEQ/L Potassium Level 3.4 MEQ/L 3.7 MEQ/L Chloride Level 112 MEQ/L 114 MEQ/L Carbon Dioxide Level 26.0 MEQ/L 27.1 MEQ/L Protein Corrected Calcium 7.8 MG/DL Ovalocytes 1+ Acanthocytes OCC Phosphorus Level 3.0 MG/DL Test 11/14/16 06:00 11/17/16 08:11 12/14/16 07:36 01/18/17 18:19 Urine Transitional Epithelial Cells <1 /hpf Urine Calcium Oxalate Crystals RARE /hpf Urine Bacteria RARE /hpf Urine Hyaline Casts 11 /lpf Stool C. difficile Toxin (PCR) NEGATIVE Stl C. difficile Toxin Epiderm 027 PRESUMPTIVE NEGATIVE Blood Urea Nitrogen 14 MG/DL Creatinine 0.67 MG/DL Random Glucose 91 MG/DL Calcium Level 8.8 MG/DL Magnesium Level 2.0 MG/DL Sodium Level 143 MEQ/L Potassium Level 3.3 MEQ/L Chloride Level 107 MEQ/L Carbon Dioxide Level 25.0 MEQ/L Ammonia 26 MCMOL/L Test 01/20/17 09:35 8/17 08:20 02/17/17 09:45 02/17/17 18:04 Urine Mucus FEW /lpf Levetiracetam (Keppra) Level <2.0 mcg/mL Urine Color LIGHT-YELLOW Urine Turbidity CLEAR Urine pH 6.5 Urine Specific [place] 1.009 Urine Protein NEG mg/dL Urine Glucose (UA) NEG mg/dL Urine Ketones NEG mg/dL Urine Occult Blood NEG Urine Nitrite NEG Urine Bilirubin NEG Urine Urobilinogen LESS THAN 2.0 MG/DL Urine Leukocyte Esterase NEG Urine RBC LESS THAN 1 /hpf Urine WBC 1 /hpf Microscopic Urinalysis Comment CULT NOT INDICATED Neutrophils (%) (Auto) 48.2 % Lymphocytes (%) (Auto) 35.2 % Monocytes (%) (Auto) 9.5 % Eosinophils (%) (Auto) 6.1 % Basophils (%) (Auto) 1.0 % Neutrophils # (Auto) 2.8 TH/MM3 Lymphocytes # (Auto) 2.1 TH/MM3 Monocytes # (Auto) 0.6 TH/MM3 Eosinophils # (Auto) 0.4 TH/MM3 Basophils # (Auto) 0.1 TH/MM3 CBC Comment DIFF FINAL Differential Comment Blood Urea Nitrogen 18 MG/DL Creatinine 1.17 MG/DL Random Glucose 81 MG/DL Total Protein 7.1 GM/DL Albumin 3.6 GM/DL Calcium Level 8.5 MG/DL Alkaline Phosphatase 58 U/L Aspartate Amino Transf (AST/SGOT) 11 U/L Alanine Aminotransferase (ALT/SGPT) 24 U/L Total Bilirubin 0.4 MG/DL Sodium Level 141 MEQ/L Potassium Level 4.1 MEQ/L Chloride Level 110 MEQ/L Carbon Dioxide Level 24.8 MEQ/L Lipase 85 U/L Test 02/18/17 17:10 02/24/17 08:28 03/03/17 09:34 Troponin I LESS THAN 0.02 NG/ML White Blood Count 6.8 TH/MM3 Red Blood Count 4.71 MIL/MM3 Hemoglobin 13.5 GM/DL Hematocrit 41.3 % Mean Corpuscular Volume 87.7 FL Mean Corpuscular Hemoglobin 28.8 PG Mean Corpuscular Hemoglobin Concent 32.8 % Red Cell Distribution Width 14.4 % Platelet Count 206 TH/MM3 Mean Platelet Volume 9.1 FL Blood Urea Nitrogen 19 MG/DL Creatinine 1.12 MG/DL Random Glucose 76 MG/DL Calcium Level 8.4 MG/DL Sodium Level 143 MEQ/L Potassium Level 3.7 MEQ/L 3.8 MEQ/L Chloride Level 110 MEQ/L Carbon Dioxide Level 25.3 MEQ/L Anion Gap 8 MEQ/L Estimat Glomerular Filtration Rate 69 ML/MIN Objective Remarks GENERAL: Well-nourished, well-developed male patient, in no apparent distress. Awake and alert. Sitting up at nurses station. Appears comfortable. SKIN: No rash. Warm and dry. HEENT: Normocephalic. Extraocular motions intact. No scleral icterus. No injection or drainage. Nose without bleeding. MMM. Airway patent. NECK: Trachea midline. Supple. CARDIOVASCULAR: RRR. No murmur appreciated. RESPIRATORY: Nonlabored. Clear to auscultation. Breath sounds equal bilaterally. No wheezes, rales, or rhonchi. GASTROINTESTINAL: Abdomen soft, nondistended and nontender. BS x 4. MUSCULOSKELETAL: Extremities without clubbing, cyanosis, or edema. NEUROLOGICAL: Awake and alert. Oriented to self only. Moves all 4 extremities spontaneously. Motor and sensory function grossly intact. Normal speech. Medications and IVs Current Medications Medications (Trade) Dose Ordered Sig/Nava Route Start Time Stop Time Status Last Admin (Tylenol) 650 mg Q6H PRN PO 10/05/16 02:45 03/07/17 21:12 (Zofran Inj) 4 mg Q6H PRN IV 10/05/16 02:45 11/27/16 23:26 Miscellaneous Information 1 Q361D XX 10/05/16 02:45 10/05/16 02:45 (Pravachol) 40 mg DAILY PO 10/05/16 09:00 03/08/17 08:11 (Lovenox Inj) 40 mg Q24H SQ 10/23/16 21:00 Future hold 03/07/17 21:12 (Trandate) 100 mg Q8H PO 11/03/16 20:00 03/08/17 04:21 (Norvasc) 5 mg DAILY PO 11/04/16 09:00 03/07/17 09:10 (Imodium) 2 mg UNSCH PRN PO 11/09/16 09:45 11/29/16 12:57 (Lomotil Tab) 1 tab Q6H PRN PO 11/09/16 09:45 (Lactulose Liq) 30 ml QID PRN PO 12/09/16 13:45 (Protonix) 40 mg DAILY PO 12/16/16 09:00 03/08/17 08:11 (Benadryl) 50 mg Q6H PRN PO 12/20/16 17:45 03/06/17 23:42 (Colace) 100 mg Q12H PRN PO 02/12/17 00:15 (Duoneb Neb) 1 ampule Q4HR NEB PRN INH 02/12/17 12:00 (KCl) 40 meq DAILY PO 02/13/17 09:00 03/08/17 08:11 (Tonie-Colace) 1 tab BID PO 02/18/17 09:30 03/07/17 21:13 (SEROquel) 200 mg BID@09,12 PO 02/24/17 09:00 03/08/17 08:11 A/P Assessment and Plan Mr. Nunez is a 51 year old male who was brought to the hospital as a trauma alert due to head injury after he fell in the bathroom and hit his head. Patient was unresponsive for approximately 15 minutes by the time ambulance services arrived. His mentation waxed and waned with GCS ranging from [address] head indicated subarachnoid hemorrhage, acute. Auditory hallucinations - Psychiatry consulted, recommended Seroquel, no new Episodes of Hallucinations. Intracranial hemorrhage, status post basilar artery coiling 10/05, Status post EMERGENCY COMMUNICATIONS DISPATCHER shunt on 11/24/2016 Chronic encephalopathy Hydrocephalus Cortical blindness - Neurology signed off. Neuropsychology following patient ultimately for discharge placement and assistance with recommendations. Per neuropsychology note, ongoing areas of concern include behavioral impulsivity, lack of insight and judgement. - Speech therapy recommends regular diet with thin liquids. Patient is eating well. PEG dc'd 01/08/17. - Continue Seroquel 100mg BID per psychiatry HTN - controlled - continue on Norvasc 5mg daily and Labetalol 100mg q8h Acute hypoxic hypercarbic respiratory failure, resolved - Tracheostomy 10/23/16, removed, old trach site healed. - Monitor respiratory status - stable on RA C. difficile colitis, resolved - Completed Flagyl on 10/23 - No diarrhea reported - off Lactinex Hypokalemia, resolved - Continue scheduled KCL 40 meq PO daily. - Follow and replace as needed. - potassium levels stable - monitor intermittently DVT prophylaxis: SCDs, YOUSIF hose, Lovenox. Ambulation. GI prophylaxis: Protonix. No changes to anterior assessment. Discharge Planning Discharge planning ongoing. CM continues to address funding and placement issue. Pending SSI and medicaid. Luciano Gomez MD Mar 08, 2017 08:20
[2017-03-08 10:50] LABS: AUTOMATED NEUTROPHIL # 3.5 TH/MM3 (1.8-7.7); BASOPHIL # 0.1 TH/MM3 (0-0.2); BASOPHIL % 1.3 % (0.0-2.0); EOSINOPHIL # 0.3 TH/MM3 (0-0.4); EOSINOPHIL % 5.2 % (0.0-4.0); HEMATOCRIT 43.2 % (39.0-51.0); HEMOGLOBIN 14.2 GM/DL (13.0-17.0); LYMPH % 25.3 % (9.0-44.0); LYMPHOCYTE # 1.5 TH/MM3 (1.0-4.8); MEAN CELL VOLUME 87.7 FL (80.0-100.0); MEAN CORPUSCULAR HEMOGLOBIN 28.9 PG (27.0-34.0); MEAN PLATELET VOLUME 9.2 FL (7.0-11.0); MONO % 7.2 % (0.0-8.0); MONOCYTE # 0.4 TH/MM3 (0-0.9); PLATELET COUNT 200 TH/MM3 (150-450); RED BLOOD COUNT 4.92 MIL/MM3 (4.50-5.90); RED CELL DISTRIBUTION WIDTH 14.5 % (11.6-17.2); WHITE BLOOD COUNT 5.8 TH/MM3 (4.0-11.0)
[2017-03-08 11:09] LABS: CREATININE 1.3 MG/DL (0.60-1.30); MAGNESIUM 2.2 MG/DL (1.5-2.5)
[2017-03-08 12:00] VITALS: BP 118/72; PULSE 88; RESP 18; TEMP 98.3; O2SAT 93
--- NOTE | 2017-03-08 12:46 | HHI.PR ---
Neuropsych Behavior Behavior: Intact: Coping/Acceptance, Cooperative w/ Treatment, Motivation, Frustration Tolerance/[place] Cognitive Cognitive: Severe: Cognitive, Attention/Concentration, Confused/Orientation, Insight/Awareness, Judgement/Problem-Solving, Memory Psychosocial Psychosocial: Unable to Asses: Psychosocial, Family/Other Adjustment, Realistic Expectation, Self-Esteem/Confidence Progress Notes/Response to Tx Contents of Sessions: Adjustment Time with Patient: 30 minutes Premorbid psychological status Premorbid Cognitive, Emotional and Behavioral Status: Unable to Assess. The patient past history is unknown as there has been no family present. Behavioral Reactions of Patient and Family/Support System: Unable to Assess. The patients family is not present. Emotional/Behavioral Status of Patient and Family/Support System: Unable to Assess. Pertinent issues, if appropriate to this patients clinical care, are described in detail above. Maximizing acute care outcome It is recommended that the patient be monitored for emergent behavioral impulsivity as the medical condition evolves. This patients neuropathological challenges may limit their rehabilitation potential going forward, and these challenges will require specialized therapeutic skills to maximize outcome. Anticipated Problems Ongoing areas of concern will include behavioral impulsivity, lack of insight and judgment, which is expected to improve with time and treatment. Treatment Plan This clinician will continue to follow with you throughout the course of this patients acute care stay, and I will be available to meet with the patients family/support system to facilitate their understanding and the ongoing care of their family member. The goals of neuropsychological intervention shall be both educational and supportive to the family/support system as is deemed clinically appropriate. Impression This patient has suffered a significant traumatic brain injury secondary to a fall on 10/05/2016. 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 A consequence of this is that he is misperceiving objects in his environment, and his altered cognition is "filling in the gaps. Diagnosis: (1) Major neurocognitive disorder due to vascular disease, without behavioral disturbance, severe Status: Acute (2) Cortical blindness Status: Acute Progress Note Narrative Ongoing follow-up of patient seen bedside. Discussion with ANTELMO Alvarez as well as RN regarding this patient's neurobehavioral status. On exam, the patient is conversant, not oriented, and describes a "little man inside my head who tells me what to do." Behaviorally, the patient has been quite compliant and manageable, with no issues of restlessness or agitation. He is managed on Seroquel. While the patient is obviously delusional concerning his misperception, the delusion is not ego-dystonic and as such there is no real reason to treat, unless of course if the delusion becomes troublesome to him. I will certainly continue to follow him to watch for any such changes. Jeremy Workman PhD Mar 08, 2017 12:46 pm
[2017-03-08 16:00] VITALS: BP 123/74; PULSE 93; RESP 18; TEMP 98.2; O2SAT 93
[2017-03-08 20:00] VITALS: BP 114/59; PULSE 103; RESP 20; TEMP 99; O2SAT 91
[2017-03-08] MEDS: ENOXAPARIN SODIUM 40 MG/0.4 ML SYRINGE SQ SCH (22:42)
[2017-03-09] VITALS: BP 116/75; PULSE 75; RESP 20; TEMP 97.2; O2SAT 93
[2017-03-09 04:00] VITALS: BP 129/81; PULSE 73; RESP 20; TEMP 97.4; O2SAT 93
[2017-03-09] MEDS: LABETALOL HCL 100 MG TAB PO SCH ×3 (04:48→20:11)
[2017-03-09] MEDS: PANTOPRAZOLE SOD 40 MG DELAYED RELEASE TAB PO SCH (08:10)
[2017-03-09] MEDS: DOCUSATE SODIUM 50 MG/SENNA 8.6 MG TAB PO SCH ×2 (08:10→20:11)
[2017-03-09] MEDS: PRAVASTATIN SOD 40 MG TAB PO SCH (08:10)
[2017-03-09] MEDS: QUEtiapine FUMARATE 100 MG TAB PO SCH ×2 (08:10→13:09)
[2017-03-09] MEDS: amLODIPine BESYLATE 5 MG TAB PO SCH (08:11)
[2017-03-09] MEDS: POTASSIUM CHLORIDE 20 MEQ CONTROLLED RELEASE TAB PO SCH (08:11)
[2017-03-09 08:21] VITALS: BP 127/81; PULSE 78; RESP 20; TEMP 98; O2SAT 98
[2017-03-09 16:02] VITALS: BP 103/65; PULSE 80; RESP 20; TEMP 98.1; O2SAT 95
--- NOTE | 2017-03-09 16:26 | HHI.PR ---
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 Stable denied any pain. 03/09: Stable in his bedroom resting comfortable Objective Vital Signs Date Time Temp Pulse Resp B/P (MAP) Pulse Ox O2 Delivery O2 Flow Rate FiO2 03/09/17 16:02 98.1 80 20 103/65 (78) 95 03/09/17 08:21 98.0 78 20 127/81 (96) 98 03/09/17 04:00 97.4 73 20 129/81 (97) 93 03/09/17 00:00 97.2 75 20 116/75 (89) 93 03/08/17 20:00 99.0 103 20 114/59 (77) 91 I/O 03/08/17 03/08/17 03/08/17 03/09/17 03/09/17 03/09/17 07:00 15:00 23:00 07:00 15:00 23:00 Intake Total 600 ml 720 ml 790 ml Balance 600 ml 720 ml 790 ml Intake Oral 600 ml 720 ml 790 ml # Voids 2 4 2 3 # Bowel Movements 0 Result Diagram: 03/08/17 0858 03/08/17 0858 Imaging Last Impressions Chest X-Ray 02/18/17 0000 Signed Impressions: Service Date/Time: Saturday, February 18, 2017 10:51 - CONCLUSION: Diminished lung volumes. No infiltrate. Tyrese Raymond MD Abdomen X-Ray 02/18/17 0000 Signed Impressions: Service Date/Time: Saturday, February 18, 2017 10:56 - CONCLUSION: Unremarkable abdomen. Tyrese Raymond MD Gall Bladder Ultrasound 02/17/17 0000 Signed Impressions: Service Date/Time: Friday, February 17, 2017 17:45 - CONCLUSION: Mildly enlarged liver and small amount of gallbladder sludge. Tim Hammonds MD Head CT 12/09/16 0000 Signed Impressions: Service Date/Time: Friday, December 09, 2016 17:36 - CONCLUSION: 1. Right ventriculostomy tube remains in place with decrease in ventricular size since November 24. There is some encephalomalacia around the shunt and a probable small infarct in the left basal ganglia. No new hemorrhage or shift. Tip Harris MD Transcranial Doppler Study Complete 10/26/16 0700 Signed Impressions: Service Date/Time: Wednesday, October 26, 2016 08:20 - CONCLUSION: Minimal interval improvement with no evidence for vasospasm. Christian Song MD FACR Neck CTA 10/19/16 0000 Signed Impressions: Service Date/Time: Wednesday, October 19, 2016 14:19 - CONCLUSION: Negative for dissection or significant stenosis. Christian Song MD FACR Head CTA 10/19/16 0000 Signed Impressions: Service Date/Time: Wednesday, October 19, 2016 14:19 - CONCLUSION: 1. Interval development of significant vasospasm in the left MCA and SRI territories. 2. Mild vasospasm in the basilar artery.. Gume Mckeon MD Cerebral Arteriogram 10/19/16 0000 Signed Impressions: Service Date/Time: Wednesday, October 19, 2016 16:06 - CONCLUSION: 1. Vasospasm in the left MCA and SRI territories 2. Spasmolytic infusion, left internal carotid artery as above.. 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 Gume Mckeon MD Pelvis X-Ray 10/05/16109 Signed Impressions: Service Date/Time: Wednesday, October 05, 2016 01:22 - CONCLUSION: Unremarkable examination of the pelvis. Ruben Acuña Jr., MD Chest CT 10/05/16109 Signed Impressions: Service Date/Time: Wednesday, October 05, 2016 01:46 - CONCLUSION: 1. No acute intrathoracic abnormality. 2. Bibasilar atelectasis. 3. Cardiomegaly. 4. Prior granulomatous disease. Ruben Acuña Jr., MD Cervical Spine CT 10/05/16109 Signed Impressions: Service Date/Time: Wednesday, October 05, 2016 01:40 - CONCLUSION: 1. No fracture or dislocation. 2. Multilevel degenerative changes. Ruben Acuña Jr., MD Abdomen/Pelvis CT 10/05/16109 Signed Impressions: Service Date/Time: Wednesday, October 05, 2016 01:46 - CONCLUSION: 1. No acute trauma. 2. Rounded area of decreased density involving the pancreatic head. I cannot completely exclude pancreatic head mass. At some point MRI of the pancreas is suggested to further evaluate. 3. Focal area of poor enhancement involving the left kidney. This may relate to an area of parenchymal scarring. I cannot completely exclude a mass. This can be further assessed with MRI as well. Ruben Acuña Jr., MD Procedures 10/05/16 right frontal twist drill for ventriculostomy placement 10/20/16 arterial line placement 10/23/16 bedside percutaneous tracheostomy under direct bronchoscopic visualization 10/24/16 PEG tube placement at bedside Other Results Laboratory Tests Test 10/05/16 00:15 10/05/16 02:45 10/05/16 17:15 10/06/16 03:45 Bedside Hemoglobin 15.6 G/DL Bedside Hematocrit 46.0 % Eosinophils % 5 % Basophils % 2 % Atypical Lymphocytes % Activated Partial Thromboplast Time 21.0 SEC Fibrinogen 249 mg/dL Bedside Sodium 146 MMOL/L Bedside Potassium 4.4 MMOL/L Bedside Chloride 105 MMOL/L Bedside Blood Urea Nitrogen 30 MG/DL Bedside Creatinine 1.3 MG/DL Bedside Glucose 145 MG/DL Ethyl Alcohol Level LESS THAN 3 MG/DL Nasal Screen MRSA (PCR) NEGATIVE Urine Opiates Screen NEG Urine Barbiturates Screen NEG Urine Amphetamines Screen NEG Urine Benzodiazepines Screen NEG Urine Cocaine Screen NEG Urine Cannabinoids Screen NEG Blood Gas Puncture Site ART LINE Blood Gas Patient Temperature 98.6 Blood Gas HCO3 23 mmol/L Blood Gas Base Excess -1.0 mmol/L Blood Gas Oxygen Saturation 98 % Arterial Blood pH 7.40 Arterial Blood Partial Pressure CO2 38 mmHg Arterial Blood Partial Pressure O2 235 mmHg Arterial Blood Oxygen Content 17.9 Vol % Arterial Blood Carboxyhemoglobin 1.1 % Arterial Blood Methemoglobin 1.0 % Blood Gas Hemoglobin 12.7 G/DL Oxygen Delivery Device VENTILATOR Blood Gas Ventilator Setting [id number]/VT700/[id number] Blood Gas Inspired Oxygen 80 % Prothrombin Time 10.9 SEC Prothromb Time International Ratio 1.0 RATIO Lactic Acid Level 1.1 mmol/L Test 10/12/16 01:45 10/12/16 04:45 10/14/16 05:15 10/20/16 12:55 Urine WBC Clumps MANY Differential Total Cells Counted 100 Neutrophils % (Manual) 77 % Band Neutrophils % 16 % Lymphocytes % 5 % Monocytes % 2 % Neutrophils # (Manual) 22.6 TH/MM3 Platelet Estimate NORMAL Platelet Morphology Comment NORMAL Red Cell Morphology Comment NORMAL Random Vancomycin Level 7.4 COMMENT Urine Squamous Epithelial Cells <1 /hpf Test 10/21/16 09:20 10/25/16 11:10 11/06/16 20:00 11/08/16 04:45 CSF Volume (Tube 1) 9.0 ML CSF Supernatant Color (tube 1) CLEAR CSF Gross Blood (Tube 1) TRACE CSF WBC (Tube 1) 4 /MM3 CSF RBC (Tube 1) 112 /MM3 CSF Neutrophils 10 % CSF Lymphocytes 60 % CSF Monocytes 30 % CSF Glucose 112 MG/DL CSF Total Protein 28.8 MG/DL Urine Osmolality 290 MOSM/KG Urine Random Sodium 119 MEQ/L Serum Osmolality 303 MOSM/KG Blood Urea Nitrogen 16 MG/DL 10 MG/DL Creatinine 0.71 MG/DL 0.69 MG/DL Random Glucose 127 MG/DL 100 MG/DL Total Protein 6.6 GM/DL Albumin 2.3 GM/DL Calcium Level 7.8 MG/DL 8.2 MG/DL Magnesium Level 2.3 MG/DL 2.0 MG/DL Uric Acid 2.5 MG/DL Alkaline Phosphatase 67 U/L Aspartate Amino Transf (AST/SGOT) 28 U/L Alanine Aminotransferase (ALT/SGPT) 67 U/L Total Bilirubin 0.5 MG/DL Sodium Level 147 MEQ/L 148 MEQ/L Potassium Level 3.4 MEQ/L 3.7 MEQ/L Chloride Level 112 MEQ/L 114 MEQ/L Carbon Dioxide Level 26.0 MEQ/L 27.1 MEQ/L Protein Corrected Calcium 7.8 MG/DL Ovalocytes 1+ Acanthocytes OCC Phosphorus Level 3.0 MG/DL Test 11/14/16 06:00 11/17/16 08:11 01/18/17 18:19 01/20/17 09:35 Urine Transitional Epithelial Cells <1 /hpf Urine Calcium Oxalate Crystals RARE /hpf Urine Bacteria RARE /hpf Urine Hyaline Casts 11 /lpf Stool C. difficile Toxin (PCR) NEGATIVE Stl C. difficile Toxin Epiderm 027 PRESUMPTIVE NEGATIVE Ammonia 26 MCMOL/L Urine Mucus FEW /lpf Test 02/06/17 08:20 02/17/17 09:45 02/17/17 18:04 02/18/17 17:10 Levetiracetam (Keppra) Level <2.0 mcg/mL Urine Color LIGHT-YELLOW Urine Turbidity CLEAR Urine pH 6.5 Urine Specific [place] 1.009 Urine Protein NEG mg/dL Urine Glucose (UA) NEG mg/dL Urine Ketones NEG mg/dL Urine Occult Blood NEG Urine Nitrite NEG Urine Bilirubin NEG Urine Urobilinogen LESS THAN 2.0 MG/DL Urine Leukocyte Esterase NEG Urine RBC LESS THAN 1 /hpf Urine WBC 1 /hpf Microscopic Urinalysis Comment CULT NOT INDICATED Blood Urea Nitrogen 18 MG/DL Creatinine 1.17 MG/DL Random Glucose 81 MG/DL Total Protein 7.1 GM/DL Albumin 3.6 GM/DL Calcium Level 8.5 MG/DL Alkaline Phosphatase 58 U/L Aspartate Amino Transf (AST/SGOT) 11 U/L Alanine Aminotransferase (ALT/SGPT) 24 U/L Total Bilirubin 0.4 MG/DL Sodium Level 141 MEQ/L Potassium Level 4.1 MEQ/L Chloride Level 110 MEQ/L Carbon Dioxide Level 24.8 MEQ/L Lipase 85 U/L Troponin I LESS THAN 0.02 NG/ML Test 03/08/17 08:58 White Blood Count 5.8 TH/MM3 Red Blood Count 4.92 MIL/MM3 Hemoglobin 14.2 GM/DL Hematocrit 43.2 % Mean Corpuscular Volume 87.7 FL Mean Corpuscular Hemoglobin 28.9 PG Mean Corpuscular Hemoglobin Concent 33.0 % Red Cell Distribution Width 14.5 % Platelet Count 200 TH/MM3 Mean Platelet Volume 9.2 FL Neutrophils (%) (Auto) 61.0 % Lymphocytes (%) (Auto) 25.3 % Monocytes (%) (Auto) 7.2 % Eosinophils (%) (Auto) 5.2 % Basophils (%) (Auto) 1.3 % Neutrophils # (Auto) 3.5 TH/MM3 Lymphocytes # (Auto) 1.5 TH/MM3 Monocytes # (Auto) 0.4 TH/MM3 Eosinophils # (Auto) 0.3 TH/MM3 Basophils # (Auto) 0.1 TH/MM3 CBC Comment DIFF FINAL Differential Comment Blood Urea Nitrogen 16 MG/DL Creatinine 1.30 MG/DL Random Glucose 120 MG/DL Calcium Level 9.0 MG/DL Magnesium Level 2.2 MG/DL Sodium Level 143 MEQ/L Potassium Level 4.0 MEQ/L Chloride Level 109 MEQ/L Carbon Dioxide Level 27.0 MEQ/L Anion Gap 7 MEQ/L Estimat Glomerular Filtration Rate 58 ML/MIN Objective Remarks GENERAL: Well-nourished, well-developed male patient, in no apparent distress. Awake and alert. Sitting up at nurses station. Appears comfortable. SKIN: No rash. Warm and dry. HEENT: Normocephalic. Extraocular motions intact. No scleral icterus. No injection or drainage. Nose without bleeding. MMM. Airway patent. NECK: Trachea midline. Supple. CARDIOVASCULAR: RRR. No murmur appreciated. RESPIRATORY: Nonlabored. Clear to auscultation. Breath sounds equal bilaterally. No wheezes, rales, or rhonchi. GASTROINTESTINAL: Abdomen soft, nondistended and nontender. BS x 4. MUSCULOSKELETAL: Extremities without clubbing, cyanosis, or edema. NEUROLOGICAL: Awake and alert. Oriented to self only. Moves all 4 extremities spontaneously. Motor and sensory function grossly intact. Normal speech. Medications and IVs Current Medications Medications (Trade) Dose Ordered Sig/Nava Route Start Time Stop Time Status Last Admin (Tylenol) 650 mg Q6H PRN PO 10/05/16 02:45 03/07/17 21:12 (Zofran Inj) 4 mg Q6H PRN IV 10/05/16 02:45 11/27/16 23:26 Miscellaneous Information 1 Q361D XX 10/05/16 02:45 10/05/16 02:45 (Pravachol) 40 mg DAILY PO 10/05/16 09:00 03/09/17 08:10 (Lovenox Inj) 40 mg Q24H SQ 10/23/16 21:00 Future hold 03/08/17 22:42 (Trandate) 100 mg Q8H PO 11/03/16 20:00 03/09/17 13:09 (Norvasc) 5 mg DAILY PO 11/04/16 09:00 03/09/17 08:11 (Imodium) 2 mg UNSCH PRN PO 11/09/16 09:45 11/29/16 12:57 (Lomotil Tab) 1 tab Q6H PRN PO 11/09/16 09:45 (Lactulose Liq) 30 ml QID PRN PO 12/09/16 13:45 (Protonix) 40 mg DAILY PO 12/16/16 09:00 03/09/17 08:10 (Benadryl) 50 mg Q6H PRN PO 12/20/16 17:45 03/06/17 23:42 (Colace) 100 mg Q12H PRN PO 02/12/17 00:15 (Duoneb Neb) 1 ampule Q4HR NEB PRN INH 02/12/17 12:00 (KCl) 40 meq DAILY PO 02/13/17 09:00 03/09/17 08:11 (Tonie-Colace) 1 tab BID PO 02/18/17 09:30 03/09/17 08:10 (SEROquel) 200 mg BID@09,12 PO 02/24/17 09:00 03/09/17 13:09 A/P Assessment and Plan Mr. Nunez is a 51 year old male who was brought to the hospital as a trauma alert due to head injury after he fell in the bathroom and hit his head. Patient was unresponsive for approximately 15 minutes by the time ambulance services arrived. His mentation waxed and waned with GCS ranging from [address] head indicated subarachnoid hemorrhage, acute. Auditory hallucinations - Psychiatry consulted, recommended Seroquel, no new Episodes of Hallucinations. Intracranial hemorrhage, status post basilar artery coiling 10/05, Status post [employer] shunt on 11/24/2016 Chronic encephalopathy Hydrocephalus Cortical blindness - Neurology signed off. Neuropsychology following patient ultimately for discharge placement and assistance with recommendations. Per neuropsychology note, ongoing areas of concern include behavioral impulsivity, lack of insight and judgement. - Speech therapy recommends regular diet with thin liquids. Patient is eating well. PEG dc'd 01/08/17. - Continue Seroquel 100mg BID per psychiatry HTN - controlled - continue on Norvasc 5mg daily and Labetalol 100mg q8h Acute hypoxic hypercarbic respiratory failure, resolved - Tracheostomy 10/23/16, removed, old trach site healed. - Monitor respiratory status - stable on RA C. difficile colitis, resolved - Completed Flagyl on 10/23 - No diarrhea reported - off Lactinex Hypokalemia, resolved - Continue scheduled KCL 40 meq PO daily. - Follow and replace as needed. - potassium levels stable - monitor intermittently DVT prophylaxis: SCDs, YOUSIF hose, Lovenox. Ambulation. GI prophylaxis: Protonix. No changes to anterior assessment. Discharge Planning Discharge planning ongoing. continues to address funding and placement issue. Pending SSI and medicaid. Luciano Gomez MD Mar 09, 2017 16:26
[2017-03-09 20:00] VITALS: BP 116/69; PULSE 86; RESP 20; TEMP 98; O2SAT 94
[2017-03-09] MEDS: diphenhydrAMINE HCL 50 MG CAP PO PRN (20:11)
[2017-03-09] MEDS: ENOXAPARIN SODIUM 40 MG/0.4 ML SYRINGE SQ SCH (20:11)
[2017-03-10] VITALS: BP 106/66; PULSE 74; RESP 18; TEMP 98.2; O2SAT 92
[2017-03-10 04:00] VITALS: TEMP 97.3
[2017-03-10] MEDS: LABETALOL HCL 100 MG TAB PO SCH ×3 (05:15→21:40)
[2017-03-10 08:00] VITALS: BP 135/75; PULSE 86; RESP 17; TEMP 97.5; O2SAT 97
[2017-03-10] MEDS: PANTOPRAZOLE SOD 40 MG DELAYED RELEASE TAB PO SCH (09:46)
[2017-03-10] MEDS: amLODIPine BESYLATE 5 MG TAB PO SCH (09:46)
[2017-03-10] MEDS: PRAVASTATIN SOD 40 MG TAB PO SCH (09:46)
[2017-03-10] MEDS: DOCUSATE SODIUM 50 MG/SENNA 8.6 MG TAB PO SCH ×2 (09:46→21:40)
[2017-03-10] MEDS: POTASSIUM CHLORIDE 20 MEQ CONTROLLED RELEASE TAB PO SCH (09:46)
[2017-03-10] MEDS: QUEtiapine FUMARATE 100 MG TAB PO SCH ×2 (09:47→12:00)
[2017-03-10 12:00] VITALS: BP 130/91; PULSE 86; RESP 18; TEMP 97.9; O2SAT 98
--- NOTE | 2017-03-10 12:36 | HHI.PR ---
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 Stable denied any pain. 03/10: Stable in his bedroom, discussed with [facility] [employer], no new issues, no nausea, vomit or diarrhea Objective Vital Signs Date Time Temp Pulse Resp B/P (MAP) Pulse Ox O2 Delivery O2 Flow Rate FiO2 03/10/17 08:00 97.5 86 17 135/75 (95) 97 03/10/17 04:00 97.3 03/10/17 00:00 98.2 74 18 106/66 (79) 92 03/09/17 20:00 98.0 86 20 116/69 (85) 94 03/09/17 16:02 98.1 80 20 103/65 (78) 95 I/O 03/09/17 03/09/17 03/09/17 03/10/17 03/10/17 03/10/17 07:00 15:00 23:00 07:00 15:00 23:00 Intake Total 790 ml 120 ml Balance 790 ml 120 ml Intake Oral 790 ml 120 ml # Voids 2 3 3 Result Diagram: 03/08/17 0858 03/08/17 0858 Imaging Last Impressions Chest X-Ray 02/18/17 0000 Signed Impressions: Service Date/Time: Saturday, February 18, 2017 10:51 - CONCLUSION: Diminished lung volumes. No infiltrate. Tyrese Raymond MD Abdomen X-Ray 02/18/17 0000 Signed Impressions: Service Date/Time: Saturday, February 18, 2017 10:56 - CONCLUSION: Unremarkable abdomen. Tyrese Raymond MD Gall Bladder Ultrasound 02/17/17 0000 Signed Impressions: Service Date/Time: Friday, February 17, 2017 17:45 - CONCLUSION: Mildly enlarged liver and small amount of gallbladder sludge. Tim Hammonds MD Head CT 12/09/16 0000 Signed Impressions: Service Date/Time: Friday, December 09, 2016 17:36 - CONCLUSION: 1. Right ventriculostomy tube remains in place with decrease in ventricular size since November 24. There is some encephalomalacia around the shunt and a probable small infarct in the left basal ganglia. No new hemorrhage or shift. Tip Harris MD Transcranial Doppler Study Complete 10/26/16 0700 Signed Impressions: Service Date/Time: Wednesday, October 26, 2016 08:20 - CONCLUSION: Minimal interval improvement with no evidence for vasospasm. Christian Song MD FACR Neck CTA 10/19/16 0000 Signed Impressions: Service Date/Time: Wednesday, October 19, 2016 14:19 - CONCLUSION: Negative for dissection or significant stenosis. Christian Song MD FACR Head CTA 10/19/16 0000 Signed Impressions: Service Date/Time: Wednesday, October 19, 2016 14:19 - CONCLUSION: 1. Interval development of significant vasospasm in the left MCA and SRI territories. 2. Mild vasospasm in the basilar artery.. Gume Mckeon MD Cerebral Arteriogram 10/19/16 Signed Impressions: Service Date/Time: Wednesday, October 19, 2016 16:06 - CONCLUSION: 1. Vasospasm in the left MCA and SRI territories 2. Spasmolytic infusion, left internal carotid artery as above.. 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 Gume Mckeon MD Pelvis X-Ray 10/05/16109 Signed Impressions: Service Date/Time: Wednesday, October 05, 2016 01:22 - CONCLUSION: Unremarkable examination of the pelvis. Ruben Acuña Jr., MD Chest CT 10/05/16109 Signed Impressions: Service Date/Time: Wednesday, October 05, 2016 01:46 - CONCLUSION: 1. No acute intrathoracic abnormality. 2. Bibasilar atelectasis. 3. Cardiomegaly. 4. Prior granulomatous disease. Ruben Acuña Jr., MD Cervical Spine CT 10/05/16109 Signed Impressions: Service Date/Time: Wednesday, October 05, 2016 01:40 - CONCLUSION: 1. No fracture or dislocation. 2. Multilevel degenerative changes. Ruben Acuña Jr., MD Abdomen/Pelvis CT 10/05/16109 Signed Impressions: Service Date/Time: Wednesday, October 05, 2016 01:46 - CONCLUSION: 1. No acute trauma. 2. Rounded area of decreased density involving the pancreatic head. I cannot completely exclude pancreatic head mass. At some point MRI of the pancreas is suggested to further evaluate. 3. Focal area of poor enhancement involving the left kidney. This may relate to an area of parenchymal scarring. I cannot completely exclude a mass. This can be further assessed with MRI as well. Ruben Acuña Jr., MD Procedures 10/05/16 right frontal twist drill for ventriculostomy placement 10/20/16 arterial line placement 10/23/16 bedside percutaneous tracheostomy under direct bronchoscopic visualization 10/24/16 PEG tube placement at bedside Other Results Laboratory Tests Test 10/05/16 00:15 10/05/16 02:45 10/05/16 17:15 10/06/16 03:45 Bedside Hemoglobin 15.6 G/DL Bedside Hematocrit 46.0 % Eosinophils % 5 % Basophils % 2 % Atypical Lymphocytes % Activated Partial Thromboplast Time 21.0 SEC Fibrinogen 249 mg/dL Bedside Sodium 146 MMOL/L Bedside Potassium 4.4 MMOL/L Bedside Chloride 105 MMOL/L Bedside Blood Urea Nitrogen 30 MG/DL Bedside Creatinine 1.3 MG/DL Bedside Glucose 145 MG/DL Ethyl Alcohol Level LESS THAN 3 MG/DL Nasal Screen MRSA (PCR) NEGATIVE Urine Opiates Screen NEG Urine Barbiturates Screen NEG Urine Amphetamines Screen NEG Urine Benzodiazepines Screen NEG Urine Cocaine Screen NEG Urine Cannabinoids Screen NEG Blood Gas Puncture Site ART LINE Blood Gas Patient Temperature 98.6 Blood Gas HCO3 23 mmol/L Blood Gas Base Excess -1.0 mmol/L Blood Gas Oxygen Saturation 98 % Arterial Blood pH 7.40 Arterial Blood Partial Pressure CO2 38 mmHg Arterial Blood Partial Pressure O2 235 mmHg Arterial Blood Oxygen Content 17.9 Vol % Arterial Blood Carboxyhemoglobin 1.1 % Arterial Blood Methemoglobin 1.0 % Blood Gas Hemoglobin 12.7 G/DL Oxygen Delivery Device VENTILATOR Blood Gas Ventilator Setting [id number]/VT700/[id number] Blood Gas Inspired Oxygen 80 % Prothrombin Time 10.9 SEC Prothromb Time International Ratio 1.0 RATIO Lactic Acid Level 1.1 mmol/L Test 10/12/16 01:45 10/12/16 04:45 10/14/16 05:15 10/20/16 12:55 Urine WBC Clumps MANY Differential Total Cells Counted 100 Neutrophils % (Manual) 77 % Band Neutrophils % 16 % Lymphocytes % 5 % Monocytes % 2 % Neutrophils # (Manual) 22.6 TH/MM3 Platelet Estimate NORMAL Platelet Morphology Comment NORMAL Red Cell Morphology Comment NORMAL Random Vancomycin Level 7.4 COMMENT Urine Squamous Epithelial Cells <1 /hpf Test 10/21/16 09:20 10/25/16 11:10 11/06/16 20:00 11/08/16 04:45 CSF Volume (Tube 1) 9.0 ML CSF Supernatant Color (tube 1) CLEAR CSF Gross Blood (Tube 1) TRACE CSF WBC (Tube 1) 4 /MM3 CSF RBC (Tube 1) 112 /MM3 CSF Neutrophils 10 % CSF Lymphocytes 60 % CSF Monocytes 30 % CSF Glucose 112 MG/DL CSF Total Protein 28.8 MG/DL Urine Osmolality 290 MOSM/KG Urine Random Sodium 119 MEQ/L Serum Osmolality 303 MOSM/KG Blood Urea Nitrogen 16 MG/DL 10 MG/DL Creatinine 0.71 MG/DL 0.69 MG/DL Random Glucose 127 MG/DL 100 MG/DL Total Protein 6.6 GM/DL Albumin 2.3 GM/DL Calcium Level 7.8 MG/DL 8.2 MG/DL Magnesium Level 2.3 MG/DL 2.0 MG/DL Uric Acid 2.5 MG/DL Alkaline Phosphatase 67 U/L Aspartate Amino Transf (AST/SGOT) 28 U/L Alanine Aminotransferase (ALT/SGPT) 67 U/L Total Bilirubin 0.5 MG/DL Sodium Level 147 MEQ/L 148 MEQ/L Potassium Level 3.4 MEQ/L 3.7 MEQ/L Chloride Level 112 MEQ/L 114 MEQ/L Carbon Dioxide Level 26.0 MEQ/L 27.1 MEQ/L Protein Corrected Calcium 7.8 MG/DL Ovalocytes 1+ Acanthocytes OCC Phosphorus Level 3.0 MG/DL Test 11/14/16 06:00 11/17/16 08:11 01/18/17 18:19 01/20/17 09:35 Urine Transitional Epithelial Cells <1 /hpf Urine Calcium Oxalate Crystals RARE /hpf Urine Bacteria RARE /hpf Urine Hyaline Casts 11 /lpf Stool C. difficile Toxin (PCR) NEGATIVE Stl C. difficile Toxin Epiderm 027 PRESUMPTIVE NEGATIVE Ammonia 26 MCMOL/L Urine Mucus FEW /lpf Test 02/06/17 08:20 02/17/17 09:45 02/17/17 18:04 02/18/17 17:10 Levetiracetam (Keppra) Level <2.0 mcg/mL Urine Color LIGHT-YELLOW Urine Turbidity CLEAR Urine pH 6.5 Urine Specific [place] 1.009 Urine Protein NEG mg/dL Urine Glucose (UA) NEG mg/dL Urine Ketones NEG mg/dL Urine Occult Blood NEG Urine Nitrite NEG Urine Bilirubin NEG Urine Urobilinogen LESS THAN 2.0 MG/DL Urine Leukocyte Esterase NEG Urine RBC LESS THAN 1 /hpf Urine WBC 1 /hpf Microscopic Urinalysis Comment CULT NOT INDICATED Blood Urea Nitrogen 18 MG/DL Creatinine 1.17 MG/DL Random Glucose 81 MG/DL Total Protein 7.1 GM/DL Albumin 3.6 GM/DL Calcium Level 8.5 MG/DL Alkaline Phosphatase 58 U/L Aspartate Amino Transf (AST/SGOT) 11 U/L Alanine Aminotransferase (ALT/SGPT) 24 U/L Total Bilirubin 0.4 MG/DL Sodium Level 141 MEQ/L Potassium Level 4.1 MEQ/L Chloride Level 110 MEQ/L Carbon Dioxide Level 24.8 MEQ/L Lipase 85 U/L Troponin I LESS THAN 0.02 NG/ML Test 03/08/17 08:58 White Blood Count 5.8 TH/MM3 Red Blood Count 4.92 MIL/MM3 Hemoglobin 14.2 GM/DL Hematocrit 43.2 % Mean Corpuscular Volume 87.7 FL Mean Corpuscular Hemoglobin 28.9 PG Mean Corpuscular Hemoglobin Concent 33.0 % Red Cell Distribution Width 14.5 % Platelet Count 200 TH/MM3 Mean Platelet Volume 9.2 FL Neutrophils (%) (Auto) 61.0 % Lymphocytes (%) (Auto) 25.3 % Monocytes (%) (Auto) 7.2 % Eosinophils (%) (Auto) 5.2 % Basophils (%) (Auto) 1.3 % Neutrophils # (Auto) 3.5 TH/MM3 Lymphocytes # (Auto) 1.5 TH/MM3 Monocytes # (Auto) 0.4 TH/MM3 Eosinophils # (Auto) 0.3 TH/MM3 Basophils # (Auto) 0.1 TH/MM3 CBC Comment DIFF FINAL Differential Comment Blood Urea Nitrogen 16 MG/DL Creatinine 1.30 MG/DL Random Glucose 120 MG/DL Calcium Level 9.0 MG/DL Magnesium Level 2.2 MG/DL Sodium Level 143 MEQ/L Potassium Level 4.0 MEQ/L Chloride Level 109 MEQ/L Carbon Dioxide Level 27.0 MEQ/L Anion Gap 7 MEQ/L Estimat Glomerular Filtration Rate 58 ML/MIN Objective Remarks GENERAL: Well-nourished, well-developed male patient, in no apparent distress. Awake and alert. Sitting up at nurses station. Appears comfortable. SKIN: No rash. Warm and dry. HEENT: Normocephalic. Extraocular motions intact. No scleral icterus. No injection or drainage. Nose without bleeding. MMM. Airway patent. NECK: Trachea midline. Supple. CARDIOVASCULAR: RRR. No murmur appreciated. RESPIRATORY: Nonlabored. Clear to auscultation. Breath sounds equal bilaterally. No wheezes, rales, or rhonchi. GASTROINTESTINAL: Abdomen soft, nondistended and nontender. BS x 4. MUSCULOSKELETAL: Extremities without clubbing, cyanosis, or edema. NEUROLOGICAL: Awake and alert. Oriented to self only. Moves all 4 extremities spontaneously. Motor and sensory function grossly intact. Normal speech. Medications and IVs Current Medications Medications (Trade) Dose Ordered Sig/Nava Route Start Time Stop Time Status Last Admin (Tylenol) 650 mg Q6H PRN PO 10/05/16 02:45 03/07/17 21:12 (Zofran Inj) 4 mg Q6H PRN IV 10/05/16 02:45 11/27/16 23:26 Miscellaneous Information 1 Q361D XX 10/05/16 02:45 10/05/16 02:45 (Pravachol) 40 mg DAILY PO 10/05/16 09:00 03/10/17 09:46 (Lovenox Inj) 40 mg Q24H SQ 10/23/16 21:00 Future hold 03/09/17 20:11 (Trandate) 100 mg Q8H PO 11/03/16 20:00 03/10/17 05:15 (Norvasc) 5 mg DAILY PO 11/04/16 09:00 03/10/17 09:46 (Imodium) 2 mg UNSCH PRN PO 11/09/16 09:45 11/29/16 12:57 (Lomotil Tab) 1 tab Q6H PRN PO 11/09/16 09:45 (Lactulose Liq) 30 ml QID PRN PO 12/09/16 13:45 (Protonix) 40 mg DAILY PO 12/16/16 09:00 03/10/17 09:46 (Benadryl) 50 mg Q6H PRN PO 12/20/16 17:45 03/09/17 20:11 (Colace) 100 mg Q12H PRN PO 02/12/17 00:15 (Duoneb Neb) 1 ampule Q4HR NEB PRN INH 02/12/17 12:00 (KCl) 40 meq DAILY PO 02/13/17 09:00 03/10/17 09:46 (Tonie-Colace) 1 tab BID PO 02/18/17 09:30 03/10/17 09:46 (SEROquel) 200 mg BID@09,12 PO 02/24/17 09:00 03/10/17 09:47 A/P Assessment and Plan Mr. Nunez is a 51 year old male who was brought to the hospital as a trauma alert due to head injury after he fell in the bathroom and hit his head. Patient was unresponsive for approximately 15 minutes by the time ambulance services arrived. His mentation waxed and waned with GCS ranging from [address] head indicated subarachnoid hemorrhage, acute. Auditory hallucinations - Psychiatry consulted, recommended Seroquel, no new Episodes of Hallucinations. Intracranial hemorrhage, status post basilar artery coiling 10/05, Status post [employer]LE COUNSELING AIDE shunt on 11/24/2016 Chronic encephalopathy Hydrocephalus Cortical blindness - Neurology signed off. Neuropsychology following patient ultimately for discharge placement and assistance with recommendations. Per neuropsychology note, ongoing areas of concern include behavioral impulsivity, lack of insight and judgement. - Speech therapy recommends regular diet with thin liquids. Patient is eating well. PEG dc'd 01/08/17. - Continue Seroquel 100mg BID per psychiatry HTN - controlled - continue on Norvasc 5mg daily and Labetalol 100mg q8h Acute hypoxic hypercarbic respiratory failure, resolved - Tracheostomy 10/23/16, removed, old trach site healed. - Monitor respiratory status - stable on RA C. difficile colitis, resolved - Completed Flagyl on 10/23 - No diarrhea reported - off Lactinex Hypokalemia, resolved - Continue scheduled KCL 40 meq PO daily. - Follow and replace as needed. - potassium levels stable - monitor intermittently DVT prophylaxis: SCDs, YOUSIF hose, Lovenox. Ambulation. GI prophylaxis: Protonix. No changes to anterior assessment. Discharge Planning Discharge planning ongoing. continues to address funding and placement issue. Pending SSI and medicaid. Luciano Gomez MD Mar 10, 2017 12:36
[2017-03-10 16:00] VITALS: BP 126/83; PULSE 73; RESP 20; TEMP 98.6; O2SAT 94
[2017-03-10 20:00] VITALS: BP 132/83; PULSE 96; RESP 18; TEMP 97.6; O2SAT 93
[2017-03-10] MEDS: ENOXAPARIN SODIUM 40 MG/0.4 ML SYRINGE SQ SCH (21:40)
[2017-03-11 01:18] VITALS: BP 137/81; PULSE 82; RESP 16; TEMP 98; O2SAT 98
[2017-03-11] MEDS: LABETALOL HCL 100 MG TAB PO SCH ×3 (05:34→20:52)
[2017-03-11 08:00] VITALS: BP 126/80; PULSE 86; RESP 17; TEMP 98.1; O2SAT 94
[2017-03-11] MEDS: QUEtiapine FUMARATE 100 MG TAB PO SCH ×2 (08:11→12:23)
[2017-03-11] MEDS: PRAVASTATIN SOD 40 MG TAB PO SCH (08:11)
[2017-03-11] MEDS: POTASSIUM CHLORIDE 20 MEQ CONTROLLED RELEASE TAB PO SCH (08:11)
[2017-03-11] MEDS: DOCUSATE SODIUM 50 MG/SENNA 8.6 MG TAB PO SCH ×2 (08:11→20:53)
[2017-03-11] MEDS: PANTOPRAZOLE SOD 40 MG DELAYED RELEASE TAB PO SCH (08:11)
[2017-03-11] MEDS: amLODIPine BESYLATE 5 MG TAB PO SCH (08:11)
--- NOTE | 2017-03-11 11:08 | HHI.PR ---
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 Stable denied any pain. 03/11: Stable in his bedroom, discussed with Curing Press Maintainer, no new issues, no nausea, vomit or diarrhea Objective Vital Signs Date Time Temp Pulse Resp B/P (MAP) Pulse Ox O2 Delivery O2 Flow Rate FiO2 03/11/17 08:00 98.1 86 17 126/80 (95) 94 03/11/17 01:18 98.0 82 16 137/81 (99) 98 03/10/17 20:00 97.6 96 18 132/83 (99) 93 03/10/17 16:00 98.6 73 20 126/83 (97) 94 03/10/17 12:00 97.9 86 18 130/91 (104) 98 I/O 03/10/17 03/10/17 03/10/17 03/11/17 03/11/17 03/11/17 06:59 14:59 22:59 06:59 14:59 22:59 Intake Total 120 ml 240 ml Balance 120 ml 240 ml Intake Oral 120 ml 240 ml # Voids 3 3 3 1 # Bowel Movements 0 Result Diagram: 03/08/17 0858 03/08/17 0858 Imaging Last Impressions Chest X-Ray 02/18/17 0000 Signed Impressions: Service Date/Time: Saturday, February 18, 2017 10:51 - CONCLUSION: Diminished lung volumes. No infiltrate. Tyrese Raymond MD Abdomen X-Ray 02/18/17 0000 Signed Impressions: Service Date/Time: Saturday, February 18, 2017 10:56 - CONCLUSION: Unremarkable abdomen. Tyrese Raymond MD Gall Bladder Ultrasound 02/17/17 0000 Signed Impressions: Service Date/Time: Friday, February 17, 2017 17:45 - CONCLUSION: Mildly enlarged liver and small amount of gallbladder sludge. Tim Hammonds MD Head CT 12/09/16 0000 Signed Impressions: Service Date/Time: Friday, December 09, 2016 17:36 - CONCLUSION: 1. Right ventriculostomy tube remains in place with decrease in ventricular size since November 24. There is some encephalomalacia around the shunt and a probable small infarct in the left basal ganglia. No new hemorrhage or shift. Tip Harris MD Transcranial Doppler Study Complete 10/26/16 0700 Signed Impressions: Service Date/Time: Wednesday, October 26, 2016 08:20 - CONCLUSION: Minimal interval improvement with no evidence for vasospasm. Christian Song MD FACR Neck CTA 10/19/16 0000 Signed Impressions: Service Date/Time: Wednesday, October 19, 2016 14:19 - CONCLUSION: Negative for dissection or significant stenosis. Christian Song MD FACR Head CTA 10/19/16 0000 Signed Impressions: Service Date/Time: Wednesday, October 19, 2016 14:19 - CONCLUSION: 1. Interval development of significant vasospasm in the left MCA and SRI territories. 2. Mild vasospasm in the basilar artery.. Gume Mckeon MD Cerebral Arteriogram 10/19/16 0000 Signed Impressions: Service Date/Time: Wednesday, October 19, 2016 16:06 - CONCLUSION: 1. Vasospasm in the left MCA and SRI territories 2. Spasmolytic infusion, left internal carotid artery as above.. 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 Gume Mckeon MD Pelvis X-Ray 10/05/16109 Signed Impressions: Service Date/Time: Wednesday, October 05, 2016 01:22 - CONCLUSION: Unremarkable examination of the pelvis. Ruben Acuña Jr., MD Chest CT 10/05/16109 Signed Impressions: Service Date/Time: Wednesday, October 05, 2016 01:46 - CONCLUSION: 1. No acute intrathoracic abnormality. 2. Bibasilar atelectasis. 3. Cardiomegaly. 4. Prior granulomatous disease. Ruben Acuña Jr., MD Cervical Spine CT 10/05/16109 Signed Impressions: Service Date/Time: Wednesday, October 05, 2016 01:40 - CONCLUSION: 1. No fracture or dislocation. 2. Multilevel degenerative changes. Ruben Acuña Jr., MD Abdomen/Pelvis CT 10/05/16109 Signed Impressions: Service Date/Time: Wednesday, October 05, 2016 01:46 - CONCLUSION: 1. No acute trauma. 2. Rounded area of decreased density involving the pancreatic head. I cannot completely exclude pancreatic head mass. At some point MRI of the pancreas is suggested to further evaluate. 3. Focal area of poor enhancement involving the left kidney. This may relate to an area of parenchymal scarring. I cannot completely exclude a mass. This can be further assessed with MRI as well. Ruben Acuña Jr., MD Procedures 10/05/16 right frontal twist drill for ventriculostomy placement 10/20/16 arterial line placement 10/23/16 bedside percutaneous tracheostomy under direct bronchoscopic visualization 10/24/16 PEG tube placement at bedside Other Results Laboratory Tests Test 10/05/16 00:15 10/05/16 02:45 10/05/16 17:15 10/06/16 03:45 Bedside Hemoglobin 15.6 G/DL Bedside Hematocrit 46.0 % Eosinophils % 5 % Basophils % 2 % Atypical Lymphocytes % Activated Partial Thromboplast Time 21.0 SEC Fibrinogen 249 mg/dL Bedside Sodium 146 MMOL/L Bedside Potassium 4.4 MMOL/L Bedside Chloride 105 MMOL/L Bedside Blood Urea Nitrogen 30 MG/DL Bedside Creatinine 1.3 MG/DL Bedside Glucose 145 MG/DL Ethyl Alcohol Level LESS THAN 3 MG/DL Nasal Screen MRSA (PCR) NEGATIVE Urine Opiates Screen NEG Urine Barbiturates Screen NEG Urine Amphetamines Screen NEG Urine Benzodiazepines Screen NEG Urine Cocaine Screen NEG Urine Cannabinoids Screen NEG Blood Gas Puncture Site ART LINE Blood Gas Patient Temperature 98.6 Blood Gas HCO3 23 mmol/L Blood Gas Base Excess -1.0 mmol/L Blood Gas Oxygen Saturation 98 % Arterial Blood pH 7.40 Arterial Blood Partial Pressure CO2 38 mmHg Arterial Blood Partial Pressure O2 235 mmHg Arterial Blood Oxygen Content 17.9 Vol % Arterial Blood Carboxyhemoglobin 1.1 % Arterial Blood Methemoglobin 1.0 % Blood Gas Hemoglobin 12.7 G/DL Oxygen Delivery Device VENTILATOR Blood Gas Ventilator Setting AC/RR14/VT700/[id number] Blood Gas Inspired Oxygen 80 % Prothrombin Time 10.9 SEC Prothromb Time International Ratio 1.0 RATIO Lactic Acid Level 1.1 mmol/L Test 10/12/16 01:45 10/12/16 04:45 10/14/16 05:15 10/20/16 12:55 Urine WBC Clumps MANY Differential Total Cells Counted 100 Neutrophils % (Manual) 77 % Band Neutrophils % 16 % Lymphocytes % 5 % Monocytes % 2 % Neutrophils # (Manual) 22.6 TH/MM3 Platelet Estimate NORMAL Platelet Morphology Comment NORMAL Red Cell Morphology Comment NORMAL Random Vancomycin Level 7.4 COMMENT Urine Squamous Epithelial Cells <1 /hpf Test 10/21/16 09:20 10/25/16 11:10 11/06/16 20:00 11/08/16 04:45 CSF Volume (Tube 1) 9.0 ML CSF Supernatant Color (tube 1) CLEAR CSF Gross Blood (Tube 1) TRACE CSF WBC (Tube 1) 4 /MM3 CSF RBC (Tube 1) 112 /MM3 CSF Neutrophils 10 % CSF Lymphocytes 60 % CSF Monocytes 30 % CSF Glucose 112 MG/DL CSF Total Protein 28.8 MG/DL Urine Osmolality 290 MOSM/KG Urine Random Sodium 119 MEQ/L Serum Osmolality 303 MOSM/KG Blood Urea Nitrogen 16 MG/DL 10 MG/DL Creatinine 0.71 MG/DL 0.69 MG/DL Random Glucose 127 MG/DL 100 MG/DL Total Protein 6.6 GM/DL Albumin 2.3 GM/DL Calcium Level 7.8 MG/DL 8.2 MG/DL Magnesium Level 2.3 MG/DL 2.0 MG/DL Uric Acid 2.5 MG/DL Alkaline Phosphatase 67 U/L Aspartate Amino Transf (AST/SGOT) 28 U/L Alanine Aminotransferase (ALT/SGPT) 67 U/L Total Bilirubin 0.5 MG/DL Sodium Level 147 MEQ/L 148 MEQ/L Potassium Level 3.4 MEQ/L 3.7 MEQ/L Chloride Level 112 MEQ/L 114 MEQ/L Carbon Dioxide Level 26.0 MEQ/L 27.1 MEQ/L Protein Corrected Calcium 7.8 MG/DL Ovalocytes 1+ Acanthocytes OCC Phosphorus Level 3.0 MG/DL Test 11/14/16 06:00 11/17/16 08:11 01/18/17 18:19 01/20/17 09:35 Urine Transitional Epithelial Cells <1 /hpf Urine Calcium Oxalate Crystals RARE /hpf Urine Bacteria RARE /hpf Urine Hyaline Casts 11 /lpf Stool C. difficile Toxin (PCR) NEGATIVE Stl C. difficile Toxin Epiderm 027 PRESUMPTIVE NEGATIVE Ammonia 26 MCMOL/L Urine Mucus FEW /lpf Test 02/06/17 08:20 02/17/17 09:45 02/17/17 18:04 02/18/17 17:10 Levetiracetam (Keppra) Level <2.0 mcg/mL Urine Color LIGHT-YELLOW Urine Turbidity CLEAR Urine pH 6.5 Urine Specific [place] 1.009 Urine Protein NEG mg/dL Urine Glucose (UA) NEG mg/dL Urine Ketones NEG mg/dL Urine Occult Blood NEG Urine Nitrite NEG Urine Bilirubin NEG Urine Urobilinogen LESS THAN 2.0 MG/DL Urine Leukocyte Esterase NEG Urine RBC LESS THAN 1 /hpf Urine WBC 1 /hpf Microscopic Urinalysis Comment CULT NOT INDICATED Blood Urea Nitrogen 18 MG/DL Creatinine 1.17 MG/DL Random Glucose 81 MG/DL Total Protein 7.1 GM/DL Albumin 3.6 GM/DL Calcium Level 8.5 MG/DL Alkaline Phosphatase 58 U/L Aspartate Amino Transf (AST/SGOT) 11 U/L Alanine Aminotransferase (ALT/SGPT) 24 U/L Total Bilirubin 0.4 MG/DL Sodium Level 141 MEQ/L Potassium Level 4.1 MEQ/L Chloride Level 110 MEQ/L Carbon Dioxide Level 24.8 MEQ/L Lipase 85 U/L Troponin I LESS THAN 0.02 NG/ML Test 03/08/17 08:58 White Blood Count 5.8 TH/MM3 Red Blood Count 4.92 MIL/MM3 Hemoglobin 14.2 GM/DL Hematocrit 43.2 % Mean Corpuscular Volume 87.7 FL Mean Corpuscular Hemoglobin 28.9 PG Mean Corpuscular Hemoglobin Concent 33.0 % Red Cell Distribution Width 14.5 % Platelet Count 200 TH/MM3 Mean Platelet Volume 9.2 FL Neutrophils (%) (Auto) 61.0 % Lymphocytes (%) (Auto) 25.3 % Monocytes (%) (Auto) 7.2 % Eosinophils (%) (Auto) 5.2 % Basophils (%) (Auto) 1.3 % Neutrophils # (Auto) 3.5 TH/MM3 Lymphocytes # (Auto) 1.5 TH/MM3 Monocytes # (Auto) 0.4 TH/MM3 Eosinophils # (Auto) 0.3 TH/MM3 Basophils # (Auto) 0.1 TH/MM3 CBC Comment DIFF FINAL Differential Comment Blood Urea Nitrogen 16 MG/DL Creatinine 1.30 MG/DL Random Glucose 120 MG/DL Calcium Level 9.0 MG/DL Magnesium Level 2.2 MG/DL Sodium Level 143 MEQ/L Potassium Level 4.0 MEQ/L Chloride Level 109 MEQ/L Carbon Dioxide Level 27.0 MEQ/L Anion Gap 7 MEQ/L Estimat Glomerular Filtration Rate 58 ML/MIN Objective Remarks GENERAL: Well-nourished, well-developed male patient, in no apparent distress. Awake and alert. Sitting up at nurses station. Appears comfortable. SKIN: No rash. Warm and dry. HEENT: Normocephalic. Extraocular motions intact. No scleral icterus. No injection or drainage. Nose without bleeding. MMM. Airway patent. NECK: Trachea midline. Supple. CARDIOVASCULAR: RRR. No murmur appreciated. RESPIRATORY: Nonlabored. Clear to auscultation. Breath sounds equal bilaterally. No wheezes, rales, or rhonchi. GASTROINTESTINAL: Abdomen soft, nondistended and nontender. BS x 4. MUSCULOSKELETAL: Extremities without clubbing, cyanosis, or edema. NEUROLOGICAL: Awake and alert. Oriented to self only. Moves all 4 extremities spontaneously. Motor and sensory function grossly intact. Normal speech. Medications and IVs Current Medications Medications (Trade) Dose Ordered Sig/Nava Route Start Time Stop Time Status Last Admin (Tylenol) 650 mg Q6H PRN PO 10/05/16 02:45 03/07/17 21:12 (Zofran Inj) 4 mg Q6H PRN IV 10/05/16 02:45 11/27/16 23:26 Miscellaneous Information 1 Q361D XX 10/05/16 02:45 10/05/16 02:45 (Pravachol) 40 mg DAILY PO 10/05/16 09:00 03/11/17 08:11 (Lovenox Inj) 40 mg Q24H SQ 10/23/16 21:00 Future hold 03/10/17 21:40 (Trandate) 100 mg Q8H PO 11/03/16 20:00 03/11/17 05:34 (Norvasc) 5 mg DAILY PO 11/04/16 09:00 03/11/17 08:11 (Imodium) 2 mg UNSCH PRN PO 11/09/16 09:45 11/29/16 12:57 (Lomotil Tab) 1 tab Q6H PRN PO 11/09/16 09:45 (Lactulose Liq) 30 ml QID PRN PO 12/09/16 13:45 (Protonix) 40 mg DAILY PO 12/16/16 09:00 03/11/17 08:11 (Benadryl) 50 mg Q6H PRN PO 6/20/17 17:45 03/09/17 20:11 (Colace) 100 mg Q12H PRN PO 02/12/17 00:15 (Duoneb Neb) 1 ampule Q4HR NEB PRN INH 02/12/17 12:00 (KCl) 40 meq DAILY PO 02/13/17 09:00 03/11/17 08:11 (Tonie-Colace) 1 tab BID PO 02/18/17 09:30 03/11/17 08:11 (SEROquel) 200 mg BID@09,12 PO 02/24/17 09:00 03/11/17 08:11 A/P Assessment and Plan Mr. Nunez is a 51 year old male who was brought to the hospital as a trauma alert due to head injury after he fell in the bathroom and hit his head. Patient was unresponsive for approximately 15 minutes by the time ambulance services arrived. His mentation waxed and waned with GCS ranging from [address] head indicated subarachnoid hemorrhage, acute. Auditory hallucinations - Psychiatry consulted, recommended Seroquel, no new Episodes of Hallucinations. Intracranial hemorrhage, status post basilar artery coiling 10/05, Status post SMOKING PIPES CLEANER shunt on 11/24/2016 Chronic encephalopathy Hydrocephalus Cortical blindness - Neurology signed off. Neuropsychology following patient ultimately for discharge placement and assistance with recommendations. Per neuropsychology note, ongoing areas of concern include behavioral impulsivity, lack of insight and judgement. - Speech therapy recommends regular diet with thin liquids. Patient is eating well. PEG dc'd 01/08/17. - Continue Seroquel 100mg BID per psychiatry HTN - controlled - continue on Norvasc 5mg daily and Labetalol 100mg q8h Acute hypoxic hypercarbic respiratory failure, resolved - Tracheostomy 10/23/16, removed, old trach site healed. - Monitor respiratory status - stable on RA C. difficile colitis, resolved - Completed Flagyl on 10/23 - No diarrhea reported - off Lactinex Hypokalemia, resolved - Continue scheduled KCL 40 meq PO daily. - Follow and replace as needed. - potassium levels stable - Last laboratory 03/08/17 DVT prophylaxis: SCDs, YOUSIF hose, Lovenox. Ambulation. GI prophylaxis: Protonix. No changes to anterior assessment. Discharge Planning Discharge planning ongoing. continues to address funding and placement issue. Pending SSI and medicaid. Luciano Gomez MD Mar 11, 2017 11:08
[2017-03-11 12:00] VITALS: BP 102/64; PULSE 86; RESP 17; TEMP 97.5; O2SAT 94
[2017-03-11 16:00] VITALS: BP 135/90; PULSE 69; RESP 16; TEMP 97.4; O2SAT 98
[2017-03-11 19:50] VITALS: BP 140/92; PULSE 93; RESP 17; TEMP 98.5; O2SAT 95
[2017-03-11] MEDS: ENOXAPARIN SODIUM 40 MG/0.4 ML SYRINGE SQ SCH (20:53)
[2017-03-12 04:30] VITALS: BP 110/59; PULSE 74; RESP 18; TEMP 98.1; O2SAT 94
[2017-03-12] MEDS: LABETALOL HCL 100 MG TAB PO SCH ×3 (05:06→20:00)
[2017-03-12 08:00] VITALS: BP 139/81; PULSE 103; RESP 18; TEMP 98.8; O2SAT 94
[2017-03-12] MEDS: amLODIPine BESYLATE 5 MG TAB PO SCH (08:05)
[2017-03-12] MEDS: POTASSIUM CHLORIDE 20 MEQ CONTROLLED RELEASE TAB PO SCH (08:05)
[2017-03-12] MEDS: QUEtiapine FUMARATE 100 MG TAB PO SCH ×2 (08:05→12:43)
[2017-03-12] MEDS: DOCUSATE SODIUM 50 MG/SENNA 8.6 MG TAB PO SCH ×2 (08:05→21:00)
[2017-03-12] MEDS: PANTOPRAZOLE SOD 40 MG DELAYED RELEASE TAB PO SCH (08:05)
[2017-03-12] MEDS: PRAVASTATIN SOD 40 MG TAB PO SCH (08:05)
[2017-03-12 12:42] VITALS: BP 122/67; PULSE 83; RESP 18; TEMP 98.2; O2SAT 94
--- NOTE | 2017-03-12 15:13 | HHI.PR ---
Subjective Remarks The pt was resting comfortably. He had no acute complaints. Discussed with nursing. Objective Vitals Vital Signs Date Time Temp Pulse Resp B/P (MAP) Pulse Ox O2 Delivery O2 Flow Rate FiO2 03/12/17 12:42 98.2 83 18 122/67 (85) 94 03/12/17 08:00 98.8 103 18 139/81 (100) 94 03/12/17 04:30 98.1 74 18 110/59 (76) 94 03/11/17 19:50 98.5 93 17 140/92 (108) 95 03/11/17 16:00 97.4 69 16 135/90 (105) 98 I/O 03/11/17 03/11/17 03/11/17 03/12/17 03/12/17 03/12/17 06:59 14:59 22:59 06:59 14:59 22:59 Intake Total 2240 ml 400 ml 1680 ml Balance 2240 ml 400 ml 1680 ml Intake Oral 2240 ml 400 ml 1680 ml # Voids 1 4 1 3 # Bowel Movements 0 0 1 Result Diagram: 03/08/17 0858 03/08/17 0858 Imaging Last Impressions Chest X-Ray 02/18/17 0000 Signed Impressions: Service Date/Time: Saturday, February 18, 2017 10:51 - CONCLUSION: Diminished lung volumes. No infiltrate. Tyrese Raymond MD Abdomen X-Ray 02/18/17 0000 Signed Impressions: Service Date/Time: Saturday, February 18, 2017 10:56 - CONCLUSION: Unremarkable abdomen. Tyrese Raymond MD Gall Bladder Ultrasound 02/17/17 0000 Signed Impressions: Service Date/Time: Friday, February 17, 2017 17:45 - CONCLUSION: Mildly enlarged liver and small amount of gallbladder sludge. Tim Hammonds MD Head CT 12/09/16 0000 Signed Impressions: Service Date/Time: Friday, December 09, 2016 17:36 - CONCLUSION: 1. Right ventriculostomy tube remains in place with decrease in ventricular size since November 24. There is some encephalomalacia around the shunt and a probable small infarct in the left basal ganglia. No new hemorrhage or shift. Tip Harris MD Transcranial Doppler Study Complete 10/26/16 0700 Signed Impressions: Service Date/Time: Wednesday, October 26, 2016 08:20 - CONCLUSION: Minimal interval improvement with no evidence for vasospasm. Christian Song MD FACR Neck CTA 10/19/16 0000 Signed Impressions: Service Date/Time: Wednesday, October 19, 2016 14:19 - CONCLUSION: Negative for dissection or significant stenosis. Christian Song MD FACR Head CTA 10/19/16 0000 Signed Impressions: Service Date/Time: Wednesday, October 19, 2016 14:19 - CONCLUSION: 1. Interval development of significant vasospasm in the left MCA and SRI territories. 2. Mild vasospasm in the basilar artery.. Gmue Mckeon MD Cerebral Arteriogram 10/19/16 0000 Signed Impressions: Service Date/Time: Wednesday, October 19, 2016 16:06 - CONCLUSION: 1. Vasospasm in the left MCA and SRI territories 2. Spasmolytic infusion, left internal carotid artery as above.. 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 Gume Mckeon MD Pelvis X-Ray 10/05/16109 Signed Impressions: Service Date/Time: Wednesday, October 05, 2016 01:22 - CONCLUSION: Unremarkable examination of the pelvis. Ruben Acuña Jr., MD Chest CT 10/05/16109 Signed Impressions: Service Date/Time: Wednesday, October 05, 2016 01:46 - CONCLUSION: 1. No acute intrathoracic abnormality. 2. Bibasilar atelectasis. 3. Cardiomegaly. 4. Prior granulomatous disease. Ruben Acuña Jr., MD Cervical Spine CT 10/05/16109 Signed Impressions: Service Date/Time: Wednesday, October 05, 2016 01:40 - CONCLUSION: 1. No fracture or dislocation. 2. Multilevel degenerative changes. Ruben Acuña Jr., MD Abdomen/Pelvis CT 10/05/16109 Signed Impressions: Service Date/Time: Wednesday, October 05, 2016 01:46 - CONCLUSION: 1. No acute trauma. 2. Rounded area of decreased density involving the pancreatic head. I cannot completely exclude pancreatic head mass. At some point MRI of the pancreas is suggested to further evaluate. 3. Focal area of poor enhancement involving the left kidney. This may relate to an area of parenchymal scarring. I cannot completely exclude a mass. This can be further assessed with MRI as well. Ruben Acuña Jr., MD Objective Remarks GENERAL: Well-nourished, well-developed male patient, in no apparent distress. SKIN: No rash. Warm and dry. HEENT: Normocephalic. Extraocular motions intact. No scleral icterus. No injection or drainage. Nose without bleeding. MMM. Airway patent. NECK: Trachea midline. Supple. CARDIOVASCULAR: RRR. No murmur appreciated. RESPIRATORY: Nonlabored. Clear to auscultation. Breath sounds equal bilaterally. No wheezes, rales, or rhonchi. GASTROINTESTINAL: Abdomen soft, nondistended and nontender. BS x 4. MUSCULOSKELETAL: Extremities without clubbing, cyanosis, or edema. NEUROLOGICAL: Awake and alert. Oriented to self only. Moves all 4 extremities spontaneously. Motor and sensory function grossly intact. Normal speech. PSYCH: Calm Procedures 10/05/16 right frontal twist drill for ventriculostomy placement 10/20/16 arterial line placement 10/23/16 bedside percutaneous tracheostomy under direct bronchoscopic visualization 10/24/16 PEG tube placement at bedside Medications and IVs Current Medications Medications (Trade) Dose Ordered Sig/Nava Route Start Time Stop Time Status Last Admin (Tylenol) 650 mg Q6H PRN PO 10/05/16 02:45 03/07/17 21:12 (Zofran Inj) 4 mg Q6H PRN IV 10/05/16 02:45 11/27/16 23:26 Miscellaneous Information 1 Q361D XX 10/05/16 02:45 10/05/16 02:45 (Pravachol) 40 mg DAILY PO 10/05/16 09:00 03/12/17 08:05 (Lovenox Inj) 40 mg Q24H SQ 10/23/16 21:00 Future hold 03/11/17 20:53 (Trandate) 100 mg Q8H PO 11/03/16 20:00 03/12/17 12:43 (Norvasc) 5 mg DAILY PO 11/04/16 09:00 03/12/17 08:05 (Imodium) 2 mg UNSCH PRN PO 11/09/16 09:45 11/29/16 12:57 (Lomotil Tab) 1 tab Q6H PRN PO 11/09/16 09:45 (Lactulose Liq) 30 ml QID PRN PO 12/09/16 13:45 (Protonix) 40 mg DAILY PO 12/16/16 09:00 03/12/17 08:05 (Benadryl) 50 mg Q6H PRN PO 12/20/16 17:45 03/09/17 20:11 (Colace) 100 mg Q12H PRN PO 02/12/17 00:15 (Duoneb Neb) 1 ampule Q4HR NEB PRN INH 02/12/17 12:00 (KCl) 40 meq DAILY PO 02/13/17 09:00 03/12/17 08:05 (Tonie-Colace) 1 tab BID PO 02/18/17 09:30 03/11/17 20:53 (SEROquel) 200 mg BID@09,12 PO 02/24/17 09:00 03/12/17 12:43 A/P Problem List: (1) 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 ICD Code: I60.8 - Other nontraumatic subarachnoid hemorrhage Status: Acute (2) Hypertension ICD Code: I10 - Essential (primary) hypertension Status: Chronic (3) Major neurocognitive disorder due to vascular disease, without behavioral disturbance, severe ICD Code: F01.50 - Vascular dementia without behavioral disturbance Status: Acute (4) Septic shock ICD Code: A41.9 - Sepsis, unspecified organism; R65.21 - Severe sepsis with septic shock Status: Resolved (5) Hydrocephalus ICD Code: G91.9 - Hydrocephalus, unspecified Status: Acute (6) Intracranial hemorrhage ICD Code: I62.9 - Nontraumatic intracranial hemorrhage, unspecified Status: Acute (7) Major neurocognitive disorder as late effect of traumatic brain injury with behavioral disturbance ICD Code: S06.9X9S - Unspecified intracranial injury with loss of consciousness of unspecified duration, sequela; F02.81 - Dementia in other diseases classified elsewhere with behavioral disturbance Status: Acute (8) Encephalopathy ICD Code: G93.40 - Encephalopathy, unspecified Status: Acute (9) Sepsis ICD Code: A41.9 - Sepsis, unspecified organism Status: Resolved (10) Pneumonia ICD Code: J18.9 - Pneumonia, unspecified organism Status: Acute (11) Protein-calorie malnutrition, mild ICD Code: E44.1 - Mild protein-calorie malnutrition Status: Acute (12) Acute respiratory failure with hypoxia and hypercarbia ICD Code: J96.01 - Acute respiratory failure with hypoxia; J96.02 - Acute respiratory failure with hypercapnia Status: Acute Assessment and Plan Mr. Nunez is a 51 year old male who was brought to the hospital as a trauma alert due to head injury after he fell in the bathroom and hit his head. Patient was unresponsive for approximately 15 minutes by the time ambulance services arrived. His mentation waxed and waned with GCS ranging from [address] head indicated subarachnoid hemorrhage, acute. Auditory hallucinations - Psychiatry consulted, recommended Seroquel, no new episodes of hallucinations. Intracranial hemorrhage, status post basilar artery coiling 10/05, Status post [employer] CLERK shunt on 11/24/2016 Chronic encephalopathy Hydrocephalus Cortical blindness - Neurology signed off. Neuropsychology following patient ultimately for discharge placement and assistance with recommendations. Per neuropsychology note, ongoing areas of concern include behavioral impulsivity, lack of insight and judgement. - Speech therapy recommends regular diet with thin liquids. Patient is eating well. PEG dc'd 01/08/17. - Continue Seroquel 100mg BID per psychiatry HTN - controlled - continue on Norvasc 5mg daily and Labetalol 100mg q8h Acute hypoxic hypercarbic respiratory failure, resolved - Tracheostomy 10/23/16, removed, old trach site healed. - Monitor respiratory status - stable on RA C. difficile colitis, resolved - Completed Flagyl on 10/23 - No diarrhea reported - off Lactinex Hypokalemia, resolved - Continue scheduled KCL 40 meq PO daily. - Follow and replace as needed. - potassium levels stable - Last laboratory 03/08/17 DVT prophylaxis: SCDs, YOUSIF hose, Lovenox. Ambulation. GI prophylaxis: Protonix. Discharge Planning Awaiting placement Problem Qualifiers (1) Hypertension: Teo Perez DO Mar 12, 2017 15:13
[2017-03-12 16:00] VITALS: BP 96/52; PULSE 100; RESP 18; TEMP 98.6; O2SAT 94
[2017-03-12 20:00] VITALS: BP 119/63; PULSE 92; RESP 18; TEMP 98; O2SAT 93
[2017-03-12] MEDS: ENOXAPARIN SODIUM 40 MG/0.4 ML SYRINGE SQ SCH (21:00)
[2017-03-13] MEDS: LABETALOL HCL 100 MG TAB PO SCH ×3 (03:31→21:39)
[2017-03-13 04:00] VITALS: BP 135/87; PULSE 69; RESP 16; TEMP 98.5; O2SAT 97
[2017-03-13] MEDS: PRAVASTATIN SOD 40 MG TAB PO SCH (07:55)
[2017-03-13] MEDS: amLODIPine BESYLATE 5 MG TAB PO SCH (07:55)
[2017-03-13] MEDS: QUEtiapine FUMARATE 100 MG TAB PO SCH ×2 (07:56→12:18)
[2017-03-13] MEDS: DOCUSATE SODIUM 50 MG/SENNA 8.6 MG TAB PO SCH ×2 (07:56→21:33)
[2017-03-13] MEDS: PANTOPRAZOLE SOD 40 MG DELAYED RELEASE TAB PO SCH (07:56)
[2017-03-13] MEDS: POTASSIUM CHLORIDE 20 MEQ CONTROLLED RELEASE TAB PO SCH (07:56)
[2017-03-13 08:00] VITALS: BP 125/83; PULSE 74; RESP 16; TEMP 97.4; O2SAT 94
--- NOTE | 2017-03-13 11:52 | HHI.PR ---
Subjective Remarks The patient was resting in bed. He was making up stories about multiple random events. He had no acute complaints. Objective Vitals Vital Signs Date Time Temp Pulse Resp B/P (MAP) Pulse Ox O2 Delivery O2 Flow Rate FiO2 03/13/17 08:00 97.4 74 16 125/83 (97) 94 03/13/17 04:00 98.5 69 16 135/87 (103) 97 03/12/17 20:00 98.0 92 18 119/63 (81) 93 03/12/17 16:00 98.6 100 18 96/52 (67) 94 03/12/17 12:42 98.2 83 18 122/67 (85) 94 I/O 03/12/17 03/12/17 03/12/17 03/13/17 03/13/17 03/13/17 07:00 15:00 23:00 07:00 15:00 23:00 Intake Total 400 ml 1680 ml 1000 ml 240 ml Balance 400 ml 1680 ml 1000 ml 240 ml Intake Oral 400 ml 1680 ml 1000 ml 240 ml # Voids 1 3 1 2 # Bowel Movements 0 1 Imaging Last Impressions Chest X-Ray 02/18/17 0000 Signed Impressions: Service Date/Time: Saturday, February 18, 2017 10:51 - CONCLUSION: Diminished lung volumes. No infiltrate. Tyrese Raymond MD Abdomen X-Ray 02/18/17 0000 Signed Impressions: Service Date/Time: Saturday, February 18, 2017 10:56 - CONCLUSION: Unremarkable abdomen. Tyrese Raymond MD Gall Bladder Ultrasound 02/17/17 0000 Signed Impressions: Service Date/Time: Friday, February 17, 2017 17:45 - CONCLUSION: Mildly enlarged liver and small amount of gallbladder sludge. Tim Hammonds MD Head CT 12/09/16 0000 Signed Impressions: Service Date/Time: Friday, December 09, 2016 17:36 - CONCLUSION: 1. Right ventriculostomy tube remains in place with decrease in ventricular size since November 24. There is some encephalomalacia around the shunt and a probable small infarct in the left basal ganglia. No new hemorrhage or shift. Tip Harris MD Transcranial Doppler Study Complete 10/26/16 0700 Signed Impressions: Service Date/Time: Wednesday, October 26, 2016 08:20 - CONCLUSION: Minimal interval improvement with no evidence for vasospasm. Christian Song MD FACR Neck CTA 10/19/16 0000 Signed Impressions: Service Date/Time: Wednesday, October 19, 2016 14:19 - CONCLUSION: Negative for dissection or significant stenosis. Christian Song MD FACR Head CTA 10/19/16 0000 Signed Impressions: Service Date/Time: Wednesday, October 19, 2016 14:19 - CONCLUSION: 1. Interval development of significant vasospasm in the left MCA and SRI territories. 2. Mild vasospasm in the basilar artery.. Gume Mckeon MD Cerebral Arteriogram 10/19/16 Signed Impressions: Service Date/Time: Wednesday, October 19, 2016 16:06 - CONCLUSION: 1. Vasospasm in the left MCA and SRI territories 2. Spasmolytic infusion, left internal carotid artery as above.. 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 Gume Mckeon MD Pelvis X-Ray 10/05/16109 Signed Impressions: Service Date/Time: Wednesday, October 05, 2016 01:22 - CONCLUSION: Unremarkable examination of the pelvis. Ruben Acuña Jr., MD Chest CT 10/05/16109 Signed Impressions: Service Date/Time: Wednesday, October 05, 2016 01:46 - CONCLUSION: 1. No acute intrathoracic abnormality. 2. Bibasilar atelectasis. 3. Cardiomegaly. 4. Prior granulomatous disease. Ruben Acuña Jr., MD Cervical Spine CT 10/05/16109 Signed Impressions: Service Date/Time: Wednesday, October 05, 2016 01:40 - CONCLUSION: 1. No fracture or dislocation. 2. Multilevel degenerative changes. Ruben Acuña Jr., MD Abdomen/Pelvis CT 10/05/16109 Signed Impressions: Service Date/Time: Wednesday, October 05, 2016 01:46 - CONCLUSION: 1. No acute trauma. 2. Rounded area of decreased density involving the pancreatic head. I cannot completely exclude pancreatic head mass. At some point MRI of the pancreas is suggested to further evaluate. 3. Focal area of poor enhancement involving the left kidney. This may relate to an area of parenchymal scarring. I cannot completely exclude a mass. This can be further assessed with MRI as well. Ruben Acuña Jr., MD Objective Remarks GENERAL: Well-nourished, well-developed male patient, in no apparent distress. SKIN: No rash. Warm and dry. HEENT: Normocephalic. Extraocular motions intact. No scleral icterus. No injection or drainage. Nose without bleeding. MMM. Airway patent. NECK: Trachea midline. Supple. CARDIOVASCULAR: RRR. No murmur appreciated. RESPIRATORY: Nonlabored. Clear to auscultation. Breath sounds equal bilaterally. No wheezes, rales, or rhonchi. GASTROINTESTINAL: Abdomen soft, nondistended and nontender. BS x 4. MUSCULOSKELETAL: Extremities without clubbing, cyanosis, or edema. NEUROLOGICAL: Awake and alert. Oriented to self only. Moves all 4 extremities spontaneously. Motor and sensory function grossly intact. Normal speech. PSYCH: Calm Procedures 10/05/16 right frontal twist drill for ventriculostomy placement 10/20/16 arterial line placement 10/23/16 bedside percutaneous tracheostomy under direct bronchoscopic visualization 10/24/16 PEG tube placement at bedside Medications and IVs Current Medications Medications (Trade) Dose Ordered Sig/Nava Route Start Time Stop Time Status Last Admin (Tylenol) 650 mg Q6H PRN PO 10/05/16 02:45 03/07/17 21:12 (Zofran Inj) 4 mg Q6H PRN IV 10/05/16 02:45 11/27/16 23:26 Miscellaneous Information 1 Q361D XX 10/05/16 02:45 10/05/16 02:45 (Pravachol) 40 mg DAILY PO 10/05/16 09:00 03/13/17 07:55 (Lovenox Inj) 40 mg Q24H SQ 10/23/16 21:00 Future hold 03/12/17 21:00 (Trandate) 100 mg Q8H PO 11/03/16 20:00 03/13/17 03:31 (Norvasc) 5 mg DAILY PO 11/04/16 09:00 03/13/17 07:55 (Imodium) 2 mg UNSCH PRN PO 11/09/16 09:45 11/29/16 12:57 (Lomotil Tab) 1 tab Q6H PRN PO 11/09/16 09:45 (Lactulose Liq) 30 ml QID PRN PO 12/09/16 13:45 (Protonix) 40 mg DAILY PO 12/16/16 09:00 03/13/17 07:56 (Benadryl) 50 mg Q6H PRN PO 12/20/16 17:45 03/09/17 20:11 (Colace) 100 mg Q12H PRN PO 02/12/17 00:15 (Duoneb Neb) 1 ampule Q4HR NEB PRN INH 02/12/17 12:00 (KCl) 40 meq DAILY PO 02/13/17 09:00 03/13/17 07:56 (Tonie-Colace) 1 tab BID PO 02/18/17 09:30 03/13/17 07:56 (SEROquel) 200 mg BID@09,12 PO 02/24/17 09:00 03/13/17 07:56 A/P Problem List: (1) 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 ICD Code: I60.8 - Other nontraumatic subarachnoid hemorrhage Status: Acute (2) Hypertension ICD Code: I10 - Essential (primary) hypertension Status: Chronic (3) Major neurocognitive disorder due to vascular disease, without behavioral disturbance, severe ICD Code: F01.50 - Vascular dementia without behavioral disturbance Status: Acute (4) Septic shock ICD Code: A41.9 - Sepsis, unspecified organism; R65.21 - Severe sepsis with septic shock Status: Resolved (5) Hydrocephalus ICD Code: G91.9 - Hydrocephalus, unspecified Status: Acute (6) Intracranial hemorrhage ICD Code: I62.9 - Nontraumatic intracranial hemorrhage, unspecified Status: Acute (7) Major neurocognitive disorder as late effect of traumatic brain injury with behavioral disturbance ICD Code: S06.9X9S - Unspecified intracranial injury with loss of consciousness of unspecified duration, sequela; F02.81 - Dementia in other diseases classified elsewhere with behavioral disturbance Status: Acute (8) Encephalopathy ICD Code: G93.40 - Encephalopathy, unspecified Status: Acute (9) Sepsis ICD Code: A41.9 - Sepsis, unspecified organism Status: Resolved (10) Pneumonia ICD Code: J18.9 - Pneumonia, unspecified organism Status: Acute (11) Protein-calorie malnutrition, mild ICD Code: E44.1 - Mild protein-calorie malnutrition Status: Acute (12) Acute respiratory failure with hypoxia and hypercarbia ICD Code: J96.01 - Acute respiratory failure with hypoxia; J96.02 - Acute respiratory failure with hypercapnia Status: Acute Assessment and Plan Mr. Nunez is a 51 year old male who was brought to the hospital as a trauma alert due to head injury after he fell in the bathroom and hit his head. Patient was unresponsive for approximately 15 minutes by the time ambulance services arrived. His mentation waxed and waned with GCS ranging from [address] head indicated subarachnoid hemorrhage, acute. Auditory hallucinations - Psychiatry consulted, recommended Seroquel, no new episodes of hallucinations. Intracranial hemorrhage, status post basilar artery coiling 10/05, Status post [employer]IMMER shunt on 11/24/2016 Chronic encephalopathy Hydrocephalus Cortical blindness - Neurology signed off. Neuropsychology following patient ultimately for discharge placement and assistance with recommendations. Per neuropsychology note, ongoing areas of concern include behavioral impulsivity, lack of insight and judgement. - Speech therapy recommends regular diet with thin liquids. Patient is eating well. PEG dc'd 01/08/17. - Continue Seroquel 100mg BID per psychiatry HTN Controlled 03/13. - continue on Norvasc 5mg daily and Labetalol 100mg q8h Acute hypoxic hypercarbic respiratory failure, resolved - Tracheostomy 10/23/16, removed, old trach site healed. - Monitor respiratory status - stable on RA C. difficile colitis, resolved - Completed Flagyl on 10/23 - No diarrhea reported - off Lactinex Hypokalemia, resolved - Continue scheduled KCL 40 meq PO daily. - Follow and replace as needed. - potassium levels stable - Last laboratory 03/08/17. Repeat 03/13. DVT prophylaxis: SCDs, YOUSIF hose, Lovenox. Ambulation. GI prophylaxis: Protonix. Discharge Planning Awaiting placement Problem Qualifiers (1) Hypertension: Teo Perez DO Mar 13, 2017 11:52
[2017-03-13 12:00] VITALS: BP 123/85; PULSE 87; RESP 20; TEMP 98.2; O2SAT 93
[2017-03-13 16:00] VITALS: BP 122/78; PULSE 85; RESP 16; TEMP 98; O2SAT 93
[2017-03-13 18:06] LABS: BICARBONATE 28.1 MEQ/L (21.0-32.0); CALCIUM 8.9 MG/DL (8.5-10.1); CREATININE 1.25 MG/DL (0.60-1.30)
[2017-03-13 20:00] VITALS: BP 124/76; PULSE 83; RESP 18; TEMP 98.3; O2SAT 94
[2017-03-13] MEDS: ENOXAPARIN SODIUM 40 MG/0.4 ML SYRINGE SQ SCH (21:39)
[2017-03-14] VITALS: BP 127/78; PULSE 86; RESP 18; TEMP 98.1; O2SAT 95
[2017-03-14 04:30] VITALS: BP 125/65; PULSE 88; RESP 16; TEMP 98.1; O2SAT 98
[2017-03-14] MEDS: LABETALOL HCL 100 MG TAB PO SCH ×3 (04:32→21:19)
[2017-03-14 08:09] VITALS: BP 114/69; PULSE 91; RESP 18; TEMP 98; O2SAT 95
[2017-03-14] MEDS: POTASSIUM CHLORIDE 20 MEQ CONTROLLED RELEASE TAB PO SCH (08:36)
[2017-03-14] MEDS: PANTOPRAZOLE SOD 40 MG DELAYED RELEASE TAB PO SCH (08:36)
[2017-03-14] MEDS: PRAVASTATIN SOD 40 MG TAB PO SCH (08:37)
[2017-03-14] MEDS: amLODIPine BESYLATE 5 MG TAB PO SCH (08:37)
[2017-03-14] MEDS: DOCUSATE SODIUM 50 MG/SENNA 8.6 MG TAB PO SCH ×2 (08:37→21:19)
[2017-03-14] MEDS: QUEtiapine FUMARATE 100 MG TAB PO SCH ×2 (08:37→12:43)
--- NOTE | 2017-03-14 11:55 | HHI.PR ---
Neuropsych Behavior Behavior: Moderate: Impulsive/Agitated Cognitive Cognitive: Severe: Cognitive, Attention/Concentration, Confused/Orientation, Insight/Awareness, Judgement/Problem-Solving, Memory Progress Notes/Response to Tx Contents of Sessions: Adjustment Time with Patient: 15 minutes Premorbid psychological status Premorbid Cognitive, Emotional and Behavioral Status: Unable to Assess. The patient past history is unknown as there has been no family present. Behavioral Reactions of Patient and Family/Support System: Unable to Assess. The patients family is not present. Emotional/Behavioral Status of Patient and Family/Support System: Unable to Assess. Pertinent issues, if appropriate to this patients clinical care, are described in detail above. Maximizing acute care outcome It is recommended that the patient be monitored for emergent behavioral impulsivity as the medical condition evolves. This patients neuropathological challenges may limit their rehabilitation potential going forward, and these challenges will require specialized therapeutic skills to maximize outcome. Anticipated Problems Ongoing areas of concern will include behavioral impulsivity, lack of insight and judgment, which is expected to improve with time and treatment. Treatment Plan This clinician will continue to follow with you throughout the course of this patients acute care stay, and I will be available to meet with the patients family/support system to facilitate their understanding and the ongoing care of their family member. The goals of neuropsychological intervention shall be both educational and supportive to the family/support system as is deemed clinically appropriate. Impression This patient has suffered a significant traumatic brain injury secondary to a fall on 10/05/2016. 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 A consequence of this is that he is misperceiving objects in his environment, and his altered cognition is "filling in the gaps. Diagnosis: (1) Major neurocognitive disorder due to vascular disease, without behavioral disturbance, severe Status: Acute (2) Cortical blindness Status: Acute Progress Note Narrative Ongoing follow-up of patient seen on the unit, chart review. The patient is generally reported to be neurobehaviorally stable, with his delusional ideations remaining as egosyntonic and thus manageable. I would suggest continued pharmacological management of his behavior. I will continue to follow. Jeremy Workman PhD Mar 14, 2017 11:55
[2017-03-14 12:36] VITALS: BP 121/75; PULSE 86; RESP 18; TEMP 98.2; O2SAT 97
--- NOTE | 2017-03-14 14:23 | HHI.PR ---
Subjective Remarks The pt was eating lunch at the nurses station. No new concerns reported. Objective Vitals Vital Signs Date Time Temp Pulse Resp B/P (MAP) Pulse Ox O2 Delivery O2 Flow Rate FiO2 03/14/17 12:36 98.2 86 18 121/75 (90) 97 03/14/17 08:09 98.0 91 18 114/69 (84) 95 03/14/17 04:30 98.1 88 16 125/65 (85) 98 03/14/17 00:00 98.1 86 18 127/78 (94) 95 03/13/17 20:00 98.3 83 18 124/76 (92) 94 03/13/17 16:00 98.0 85 16 122/78 (93) 93 I/O 03/13/17 03/13/17 03/13/17 03/14/17 03/14/17 03/14/17 07:00 15:00 23:00 07:00 15:00 23:00 Intake Total 240 ml 480 ml 800 ml Balance 240 ml 480 ml 800 ml Intake Oral 240 ml 480 ml 800 ml # Voids 2 3 2 # Bowel Movements 1 0 Result Diagram: 03/13/17 1713 Imaging Last Impressions Chest X-Ray 02/18/17 0000 Signed Impressions: Service Date/Time: Saturday, February 18, 2017 10:51 - CONCLUSION: Diminished lung volumes. No infiltrate. Tyrese Raymond MD Abdomen X-Ray 02/18/17 0000 Signed Impressions: Service Date/Time: Saturday, February 18, 2017 10:56 - CONCLUSION: Unremarkable abdomen. Tyrese Raymond MD Gall Bladder Ultrasound 02/17/17 0000 Signed Impressions: Service Date/Time: Friday, February 17, 2017 17:45 - CONCLUSION: Mildly enlarged liver and small amount of gallbladder sludge. Tim Hammonds MD Head CT 12/09/16 0000 Signed Impressions: Service Date/Time: Friday, December 09, 2016 17:36 - CONCLUSION: 1. Right ventriculostomy tube remains in place with decrease in ventricular size since November 24. There is some encephalomalacia around the shunt and a probable small infarct in the left basal ganglia. No new hemorrhage or shift. Tip Harris MD Transcranial Doppler Study Complete 10/26/16 0700 Signed Impressions: Service Date/Time: Wednesday, October 26, 2016 08:20 - CONCLUSION: Minimal interval improvement with no evidence for vasospasm. Christian Song MD FACR Neck CTA 10/19/16 0000 Signed Impressions: Service Date/Time: Wednesday, October 19, 2016 14:19 - CONCLUSION: Negative for dissection or significant stenosis. Christian Song MD FACR Head CTA 10/19/16 0000 Signed Impressions: Service Date/Time: Wednesday, October 19, 2016 14:19 - CONCLUSION: 1. Interval development of significant vasospasm in the left MCA and SRI territories. 2. Mild vasospasm in the basilar artery.. Gume Mckeon MD Cerebral Arteriogram 10/19/16 Signed Impressions: Service Date/Time: Wednesday, October 19, 2016 16:06 - CONCLUSION: 1. Vasospasm in the left MCA and SRI territories 2. Spasmolytic infusion, left internal carotid artery as above.. 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 Gume Mckeon MD Pelvis X-Ray 10/05/16109 Signed Impressions: Service Date/Time: Wednesday, October 05, 2016 01:22 - CONCLUSION: Unremarkable examination of the pelvis. Ruben Acuña Jr., MD Chest CT 10/05/16109 Signed Impressions: Service Date/Time: Wednesday, October 05, 2016 01:46 - CONCLUSION: 1. No acute intrathoracic abnormality. 2. Bibasilar atelectasis. 3. Cardiomegaly. 4. Prior granulomatous disease. Ruben Acuña Jr., MD Cervical Spine CT 10/05/16109 Signed Impressions: Service Date/Time: Wednesday, October 05, 2016 01:40 - CONCLUSION: 1. No fracture or dislocation. 2. Multilevel degenerative changes. Ruben Acuña Jr., MD Abdomen/Pelvis CT 10/05/16109 Signed Impressions: Service Date/Time: Wednesday, October 05, 2016 01:46 - CONCLUSION: 1. No acute trauma. 2. Rounded area of decreased density involving the pancreatic head. I cannot completely exclude pancreatic head mass. At some point MRI of the pancreas is suggested to further evaluate. 3. Focal area of poor enhancement involving the left kidney. This may relate to an area of parenchymal scarring. I cannot completely exclude a mass. This can be further assessed with MRI as well. Ruben Acuña Jr., MD Objective Remarks GENERAL: Well-nourished, well-developed male patient, in no apparent distress. SKIN: No rash. Warm and dry. HEENT: Normocephalic. Extraocular motions intact. No scleral icterus. No injection or drainage. Nose without bleeding. MMM. Airway patent. NECK: Trachea midline. Supple. CARDIOVASCULAR: RRR. No murmur appreciated. RESPIRATORY: Nonlabored. Clear to auscultation. Breath sounds equal bilaterally. No wheezes, rales, or rhonchi. GASTROINTESTINAL: Abdomen soft, nondistended and nontender. BS x 4. MUSCULOSKELETAL: Extremities without clubbing, cyanosis, or edema. NEUROLOGICAL: Awake and alert. Oriented to self only. Moves all 4 extremities spontaneously. Motor and sensory function grossly intact. Normal speech. PSYCH: Calm Procedures 10/05/16 right frontal twist drill for ventriculostomy placement 10/20/16 arterial line placement 10/23/16 bedside percutaneous tracheostomy under direct bronchoscopic visualization 10/24/16 PEG tube placement at bedside Medications and IVs Current Medications Medications (Trade) Dose Ordered Sig/Nava Route Start Time Stop Time Status Last Admin (Tylenol) 650 mg Q6H PRN PO 10/05/16 02:45 03/07/17 21:12 (Zofran Inj) 4 mg Q6H PRN IV 10/05/16 02:45 11/27/16 23:26 Miscellaneous Information 1 Q361D XX 10/05/16 02:45 10/05/16 02:45 (Pravachol) 40 mg DAILY PO 10/05/16 09:00 03/14/17 08:37 (Lovenox Inj) 40 mg Q24H SQ 10/23/16 21:00 Future hold 03/13/17 21:39 (Trandate) 100 mg Q8H PO 11/03/16 20:00 03/14/17 12:43 (Norvasc) 5 mg DAILY PO 11/04/16 09:00 03/14/17 08:37 (Imodium) 2 mg UNSCH PRN PO 11/09/16 09:45 11/29/16 12:57 (Lomotil Tab) 1 tab Q6H PRN PO 11/09/16 09:45 (Lactulose Liq) 30 ml QID PRN PO 12/09/16 13:45 (Protonix) 40 mg DAILY PO 12/16/16 09:00 03/14/17 08:36 (Benadryl) 50 mg Q6H PRN PO 12/20/16 17:45 03/09/17 20:11 (Colace) 100 mg Q12H PRN PO 02/12/17 00:15 (Duoneb Neb) 1 ampule Q4HR NEB PRN INH 02/12/17 12:00 (KCl) 40 meq DAILY PO 02/13/17 09:00 03/14/17 08:36 (Tonie-Colace) 1 tab BID PO 02/18/17 09:30 03/14/17 08:37 (SEROquel) 200 mg BID@,12 PO 02/24/17 09:00 03/14/17 12:43 A/P Problem List: (1) 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 ICD Code: I60.8 - Other nontraumatic subarachnoid hemorrhage Status: Acute (2) Hypertension ICD Code: I10 - Essential (primary) hypertension Status: Chronic (3) Major neurocognitive disorder due to vascular disease, without behavioral disturbance, severe ICD Code: F01.50 - Vascular dementia without behavioral disturbance Status: Acute (4) Septic shock ICD Code: A41.9 - Sepsis, unspecified organism; R65.21 - Severe sepsis with septic shock Status: Resolved (5) Hydrocephalus ICD Code: G91.9 - Hydrocephalus, unspecified Status: Acute (6) Intracranial hemorrhage ICD Code: I62.9 - Nontraumatic intracranial hemorrhage, unspecified Status: Acute (7) Major neurocognitive disorder as late effect of traumatic brain injury with behavioral disturbance ICD Code: S06.9X9S - Unspecified intracranial injury with loss of consciousness of unspecified duration, sequela; F02.81 - Dementia in other diseases classified elsewhere with behavioral disturbance Status: Acute (8) Encephalopathy ICD Code: G93.40 - Encephalopathy, unspecified Status: Acute (9) Sepsis ICD Code: A41.9 - Sepsis, unspecified organism Status: Resolved (10) Pneumonia ICD Code: J18.9 - Pneumonia, unspecified organism Status: Acute (11) Protein-calorie malnutrition, mild ICD Code: E44.1 - Mild protein-calorie malnutrition Status: Acute (12) Acute respiratory failure with hypoxia and hypercarbia ICD Code: J96.01 - Acute respiratory failure with hypoxia; J96.02 - Acute respiratory failure with hypercapnia Status: Acute Assessment and Plan Mr. Nunez is a 51 year old male who was brought to the hospital as a trauma alert due to head injury after he fell in the bathroom and hit his head. Patient was unresponsive for approximately 15 minutes by the time ambulance services arrived. His mentation waxed and waned with GCS ranging from [address] head indicated subarachnoid hemorrhage, acute. Auditory hallucinations - Psychiatry consulted, recommended Seroquel, no new episodes of hallucinations. Intracranial hemorrhage, status post basilar artery coiling 10/05, Status post [employer] shunt on 11/24/2016 Chronic encephalopathy Hydrocephalus Cortical blindness - Neurology signed off. Neuropsychology following patient ultimately for discharge placement and assistance with recommendations. Per neuropsychology note, ongoing areas of concern include behavioral impulsivity, lack of insight and judgement. - Speech therapy recommends regular diet with thin liquids. Patient is eating well. PEG dc'd 01/08/17. - Continue Seroquel 100mg BID per psychiatry HTN Controlled 03/13. - continue on Norvasc 5mg daily and Labetalol 100mg q8h Acute hypoxic hypercarbic respiratory failure, resolved - Tracheostomy 10/23/16, removed, old trach site healed. - Monitor respiratory status - stable on RA C. difficile colitis, resolved - Completed Flagyl on 10/23 - No diarrhea reported - off Lactinex Hypokalemia, resolved - Continue scheduled KCL 40 meq PO daily. - Follow and replace as needed. Repeat 03/13 stable at 4. DVT prophylaxis: SCDs, YOUSIF hose, Lovenox. Ambulation. GI prophylaxis: Protonix. Discharge Planning Awaiting placement Problem Qualifiers (1) Hypertension: Teo Perez DO Mar 14, 2017 14:23
[2017-03-14 15:52] VITALS: BP 124/85; PULSE 79; RESP 17; TEMP 97.4; O2SAT 96
[2017-03-14 21:01] VITALS: BP 118/77; PULSE 88; RESP 16; TEMP 98.5; O2SAT 97
[2017-03-14] MEDS: ENOXAPARIN SODIUM 40 MG/0.4 ML SYRINGE SQ SCH (21:20)
[2017-03-15 00:01] VITALS: BP 118/63; PULSE 88; RESP 18; TEMP 97.7; O2SAT 92
[2017-03-15 04:00] VITALS: BP 117/81; PULSE 80; RESP 20; TEMP 97.4; O2SAT 93
[2017-03-15] MEDS: LABETALOL HCL 100 MG TAB PO SCH ×3 (04:15→22:37)
[2017-03-15 08:03] VITALS: BP 128/73; PULSE 84; RESP 20; TEMP 98.7; O2SAT 95
[2017-03-15] MEDS: amLODIPine BESYLATE 5 MG TAB PO SCH (09:04)
[2017-03-15] MEDS: PRAVASTATIN SOD 40 MG TAB PO SCH (09:04)
[2017-03-15] MEDS: QUEtiapine FUMARATE 100 MG TAB PO SCH ×2 (09:04→13:08)
[2017-03-15] MEDS: PANTOPRAZOLE SOD 40 MG DELAYED RELEASE TAB PO SCH (09:04)
[2017-03-15] MEDS: POTASSIUM CHLORIDE 20 MEQ CONTROLLED RELEASE TAB PO SCH (09:04)
[2017-03-15] MEDS: DOCUSATE SODIUM 50 MG/SENNA 8.6 MG TAB PO SCH ×2 (09:05→22:37)
--- NOTE | 2017-03-15 15:14 | HHI.PR ---
Subjective Remarks The patient was resting comfortably in bed. He had no acute complaints. Has been sleeping well. Objective Vitals Vital Signs Date Time Temp Pulse Resp B/P (MAP) Pulse Ox O2 Delivery O2 Flow Rate FiO2 03/15/17 08:03 98.7 84 20 128/73 (91) 95 03/15/17 04:00 97.4 80 20 117/81 (93) 93 03/15/17 00:01 97.7 88 18 118/63 (81) 92 03/14/17 21:01 98.5 88 16 118/77 (91) 97 03/14/17 15:52 97.4 79 17 124/85 (98) 96 I/O 03/14/17 03/14/17 03/14/17 03/15/17 03/15/17 03/15/17 07:00 15:00 23:00 07:00 15:00 23:00 Intake Total 800 ml 1200 ml 240 ml 780 ml Balance 800 ml 1200 ml 240 ml 780 ml Intake Oral 800 ml 1200 ml 240 ml 780 ml # Voids 2 5 2 2 # Bowel Movements 0 0 Result Diagram: 03/13/17 1713 Imaging Last Impressions Chest X-Ray 02/18/17 0000 Signed Impressions: Service Date/Time: Saturday, February 18, 2017 10:51 - CONCLUSION: Diminished lung volumes. No infiltrate. Tyrese Raymond MD Abdomen X-Ray 02/18/17 0000 Signed Impressions: Service Date/Time: Saturday, February 18, 2017 10:56 - CONCLUSION: Unremarkable abdomen. Tyrese Raymond MD Gall Bladder Ultrasound 02/17/17 0000 Signed Impressions: Service Date/Time: Friday, February 17, 2017 17:45 - CONCLUSION: Mildly enlarged liver and small amount of gallbladder sludge. Tim Hammonds MD Head CT 12/09/16 0000 Signed Impressions: Service Date/Time: Friday, December 09, 2016 17:36 - CONCLUSION: 1. Right ventriculostomy tube remains in place with decrease in ventricular size since November 24. There is some encephalomalacia around the shunt and a probable small infarct in the left basal ganglia. No new hemorrhage or shift. Tip Harris MD Transcranial Doppler Study Complete 10/26/16 0700 Signed Impressions: Service Date/Time: Wednesday, October 26, 2016 08:20 - CONCLUSION: Minimal interval improvement with no evidence for vasospasm. Christian Song MD FACR Neck CTA 10/19/16 0000 Signed Impressions: Service Date/Time: Wednesday, October 19, 2016 14:19 - CONCLUSION: Negative for dissection or significant stenosis. Christian Song MD FACR Head CTA 10/19/16 0000 Signed Impressions: Service Date/Time: Wednesday, October 19, 2016 14:19 - CONCLUSION: 1. Interval development of significant vasospasm in the left MCA and SRI territories. 2. Mild vasospasm in the basilar artery.. Gume Mckeon MD Cerebral Arteriogram 10/19/16 0000 Signed Impressions: Service Date/Time: Wednesday, October 19, 2016 16:06 - CONCLUSION: 1. Vasospasm in the left MCA and SRI territories 2. Spasmolytic infusion, left internal carotid artery as above.. 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 Gume Mckeon MD Pelvis X-Ray 10/05/16109 Signed Impressions: Service Date/Time: Wednesday, October 05, 2016 01:22 - CONCLUSION: Unremarkable examination of the pelvis. Ruben Acuña Jr., MD Chest CT 10/05/16109 Signed Impressions: Service Date/Time: Wednesday, October 05, 2016 01:46 - CONCLUSION: 1. No acute intrathoracic abnormality. 2. Bibasilar atelectasis. 3. Cardiomegaly. 4. Prior granulomatous disease. Ruben Acuña Jr., MD Cervical Spine CT 10/05/16109 Signed Impressions: Service Date/Time: Wednesday, October 05, 2016 01:40 - CONCLUSION: 1. No fracture or dislocation. 2. Multilevel degenerative changes. Ruben Acuña Jr., MD Abdomen/Pelvis CT 10/05/16109 Signed Impressions: Service Date/Time: Wednesday, October 05, 2016 01:46 - CONCLUSION: 1. No acute trauma. 2. Rounded area of decreased density involving the pancreatic head. I cannot completely exclude pancreatic head mass. At some point MRI of the pancreas is suggested to further evaluate. 3. Focal area of poor enhancement involving the left kidney. This may relate to an area of parenchymal scarring. I cannot completely exclude a mass. This can be further assessed with MRI as well. Ruben Acuña Jr., MD Objective Remarks GENERAL: Well-nourished, well-developed male patient, in no apparent distress. SKIN: No rash. Warm and dry. HEENT: Normocephalic. Extraocular motions intact. No scleral icterus. No injection or drainage. Nose without bleeding. MMM. Airway patent. NECK: Trachea midline. Supple. CARDIOVASCULAR: RRR. No murmur appreciated. RESPIRATORY: Nonlabored. Clear to auscultation. Breath sounds equal bilaterally. No wheezes, rales, or rhonchi. GASTROINTESTINAL: Abdomen soft, nondistended and nontender. BS x 4. MUSCULOSKELETAL: Extremities without clubbing, cyanosis, or edema. NEUROLOGICAL: Awake and alert. Oriented to self only. Moves all 4 extremities spontaneously. Motor and sensory function grossly intact. Normal speech. PSYCH: Calm Procedures 10/05/16 right frontal twist drill for ventriculostomy placement 10/20/16 arterial line placement 10/23/16 bedside percutaneous tracheostomy under direct bronchoscopic visualization 10/24/16 PEG tube placement at bedside Medications and IVs Current Medications Medications (Trade) Dose Ordered Sig/Nava Route Start Time Stop Time Status Last Admin (Tylenol) 650 mg Q6H PRN PO 10/05/16 02:45 03/07/17 21:12 (Zofran Inj) 4 mg Q6H PRN IV 10/05/16 02:45 11/27/16 23:26 Miscellaneous Information 1 Q361D XX 10/05/16 02:45 10/05/16 02:45 (Pravachol) 40 mg DAILY PO 10/05/16 09:00 03/15/17 09:04 (Lovenox Inj) 40 mg Q24H SQ 10/23/16 21:00 Future hold 03/14/17 21:20 (Trandate) 100 mg Q8H PO 11/03/16 20:00 03/15/17 13:08 (Norvasc) 5 mg DAILY PO 11/04/16 09:00 03/15/17 09:04 (Imodium) 2 mg UNSCH PRN PO 11/09/16 09:45 11/29/16 12:57 (Lomotil Tab) 1 tab Q6H PRN PO 11/09/16 09:45 (Lactulose Liq) 30 ml QID PRN PO 12/09/16 13:45 (Protonix) 40 mg DAILY PO 12/16/16 09:00 03/15/17 09:04 (Benadryl) 50 mg Q6H PRN PO 12/20/16 17:45 03/09/17 20:11 (Colace) 100 mg Q12H PRN PO 02/12/17 00:15 (Duoneb Neb) 1 ampule Q4HR NEB PRN INH 02/12/17 12:00 (KCl) 40 meq DAILY PO 02/13/17 09:00 03/15/17 09:04 (Tonie-Colace) 1 tab BID PO 02/18/17 09:30 03/15/17 09:05 (SEROquel) 200 mg BID@09,12 PO 02/24/17 09:00 03/15/17 13:08 A/P Problem List: (1) 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 ICD Code: I60.8 - Other nontraumatic subarachnoid hemorrhage Status: Acute (2) Hypertension ICD Code: I10 - Essential (primary) hypertension Status: Chronic (3) Major neurocognitive disorder due to vascular disease, without behavioral disturbance, severe ICD Code: F01.50 - Vascular dementia without behavioral disturbance Status: Acute (4) Septic shock ICD Code: A41.9 - Sepsis, unspecified organism; R65.21 - Severe sepsis with septic shock Status: Resolved (5) Hydrocephalus ICD Code: G91.9 - Hydrocephalus, unspecified Status: Acute (6) Intracranial hemorrhage ICD Code: I62.9 - Nontraumatic intracranial hemorrhage, unspecified Status: Acute (7) Major neurocognitive disorder as late effect of traumatic brain injury with behavioral disturbance ICD Code: S06.9X9S - Unspecified intracranial injury with loss of consciousness of unspecified duration, sequela; F02.81 - Dementia in other diseases classified elsewhere with behavioral disturbance Status: Acute (8) Encephalopathy ICD Code: G93.40 - Encephalopathy, unspecified Status: Acute (9) Sepsis ICD Code: A41.9 - Sepsis, unspecified organism Status: Resolved (10) Pneumonia ICD Code: J18.9 - Pneumonia, unspecified organism Status: Acute (11) Protein-calorie malnutrition, mild ICD Code: E44.1 - Mild protein-calorie malnutrition Status: Acute (12) Acute respiratory failure with hypoxia and hypercarbia ICD Code: J96.01 - Acute respiratory failure with hypoxia; J96.02 - Acute respiratory failure with hypercapnia Status: Acute Assessment and Plan Mr. Nunez is a 51 year old male who was brought to the hospital as a trauma alert due to head injury after he fell in the bathroom and hit his head. Patient was unresponsive for approximately 15 minutes by the time ambulance services arrived. His mentation waxed and waned with GCS ranging from [address] head indicated subarachnoid hemorrhage, acute. Auditory hallucinations - Psychiatry consulted, recommended Seroquel, no new episodes of hallucinations. Intracranial hemorrhage, status post basilar artery coiling 10/05, Status post [employer]ELOP[employer]NAGER shunt on 11/24/2016 Chronic encephalopathy Hydrocephalus Cortical blindness - Neurology signed off. Neuropsychology following patient ultimately for discharge placement and assistance with recommendations. Per neuropsychology note, ongoing areas of concern include behavioral impulsivity, lack of insight and judgement. - Speech therapy recommends regular diet with thin liquids. Patient is eating well. PEG dc'd 01/08/17. - Continue Seroquel 100mg BID per psychiatry HTN Controlled 03/15. - continue on Norvasc 5mg daily and Labetalol 100mg q8h Acute hypoxic hypercarbic respiratory failure, resolved - Tracheostomy 10/23/16, removed, old trach site healed. - Monitor respiratory status - stable on RA C. difficile colitis, resolved - Completed Flagyl on 10/23 - No diarrhea reported - off Lactinex Hypokalemia, resolved - Continue scheduled KCL 40 meq PO daily. - Follow and replace as needed. Repeat 03/13 stable at 4. DVT prophylaxis: SCDs, YOUSIF hose, Lovenox. Ambulation. GI prophylaxis: Protonix. Discharge Planning Awaiting placement Problem Qualifiers (1) Hypertension: Teo Perez DO Mar 15, 2017 15:14
[2017-03-15 22:32] VITALS: BP 125/74; PULSE 73; RESP 20; TEMP 97.4; O2SAT 95
[2017-03-15] MEDS: ENOXAPARIN SODIUM 40 MG/0.4 ML SYRINGE SQ SCH (22:37)
[2017-03-16] MEDS: LABETALOL HCL 100 MG TAB PO SCH ×3 (03:51→21:30)
[2017-03-16] MEDS: QUEtiapine FUMARATE 100 MG TAB PO SCH ×2 (08:06→11:40)
[2017-03-16] MEDS: POTASSIUM CHLORIDE 20 MEQ CONTROLLED RELEASE TAB PO SCH (08:06)
[2017-03-16] MEDS: DOCUSATE SODIUM 50 MG/SENNA 8.6 MG TAB PO SCH ×2 (08:06→21:00)
[2017-03-16] MEDS: PRAVASTATIN SOD 40 MG TAB PO SCH (08:06)
[2017-03-16] MEDS: amLODIPine BESYLATE 5 MG TAB PO SCH (08:06)
[2017-03-16] MEDS: PANTOPRAZOLE SOD 40 MG DELAYED RELEASE TAB PO SCH (08:06)
[2017-03-16 08:49] VITALS: BP 119/77; PULSE 76; RESP 20; TEMP 98.6; O2SAT 96
--- NOTE | 2017-03-16 10:48 | HHI.PR ---
Subjective Remarks The patient was resting comfortably in bed. He said he has not had a bowel movement in about 3 days. Discussed with nursing. Objective Vitals Vital Signs Date Time Temp Pulse Resp B/P (MAP) Pulse Ox O2 Delivery O2 Flow Rate FiO2 03/16/17 08:49 98.6 76 20 119/77 (91) 96 03/15/17 22:32 97.4 73 20 125/74 (91) 95 I/O 03/15/17 03/15/17 03/15/17 03/16/17 03/16/17 03/16/17 07:00 15:00 23:00 07:00 15:00 23:00 Intake Total 240 ml 780 ml Balance 240 ml 780 ml Intake Oral 240 ml 780 ml # Voids 2 2 2 # Bowel Movements 0 Result Diagram: 03/13/17 1713 Imaging Last Impressions Chest X-Ray 02/18/17 0000 Signed Impressions: Service Date/Time: Saturday, February 18, 2017 10:51 - CONCLUSION: Diminished lung volumes. No infiltrate. Tyrese Raymond MD Abdomen X-Ray 02/18/17 0000 Signed Impressions: Service Date/Time: Saturday, February 18, 2017 10:56 - CONCLUSION: Unremarkable abdomen. Tyrese Raymond MD Gall Bladder Ultrasound 02/17/17 0000 Signed Impressions: Service Date/Time: Friday, February 17, 2017 17:45 - CONCLUSION: Mildly enlarged liver and small amount of gallbladder sludge. Tim Hammonds MD Head CT 12/09/16 0000 Signed Impressions: Service Date/Time: Friday, December 09, 2016 17:36 - CONCLUSION: 1. Right ventriculostomy tube remains in place with decrease in ventricular size since November 24. There is some encephalomalacia around the shunt and a probable small infarct in the left basal ganglia. No new hemorrhage or shift. Tip Harris MD Transcranial Doppler Study Complete 10/26/16 0700 Signed Impressions: Service Date/Time: Wednesday, October 26, 2016 08:20 - CONCLUSION: Minimal interval improvement with no evidence for vasospasm. Christian Song MD FACR Neck CTA 10/19/16 0000 Signed Impressions: Service Date/Time: Wednesday, October 19, 2016 14:19 - CONCLUSION: Negative for dissection or significant stenosis. Christian Song MD FACR Head CTA 10/19/16 0000 Signed Impressions: Service Date/Time: Wednesday, October 19, 2016 14:19 - CONCLUSION: 1. Interval development of significant vasospasm in the left MCA and SRI territories. 2. Mild vasospasm in the basilar artery.. Gume Mckeon MD Cerebral Arteriogram 10/19/16 0000 Signed Impressions: Service Date/Time: Wednesday, October 19, 2016 16:06 - CONCLUSION: 1. Vasospasm in the left MCA and SRI territories 2. Spasmolytic infusion, left internal carotid artery as above.. 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 Gume Mckeon MD Pelvis X-Ray 10/05/16109 Signed Impressions: Service Date/Time: Wednesday, October 05, 2016 01:22 - CONCLUSION: Unremarkable examination of the pelvis. Ruben Acuña Jr., MD Chest CT 10/05/16109 Signed Impressions: Service Date/Time: Wednesday, October 05, 2016 01:46 - CONCLUSION: 1. No acute intrathoracic abnormality. 2. Bibasilar atelectasis. 3. Cardiomegaly. 4. Prior granulomatous disease. Ruben Acuña Jr., MD Cervical Spine CT 10/05/16109 Signed Impressions: Service Date/Time: Wednesday, October 05, 2016 01:40 - CONCLUSION: 1. No fracture or dislocation. 2. Multilevel degenerative changes. Ruben Acuña Jr., MD Abdomen/Pelvis CT 10/05/16109 Signed Impressions: Service Date/Time: Wednesday, October 05, 2016 01:46 - CONCLUSION: 1. No acute trauma. 2. Rounded area of decreased density involving the pancreatic head. I cannot completely exclude pancreatic head mass. At some point MRI of the pancreas is suggested to further evaluate. 3. Focal area of poor enhancement involving the left kidney. This may relate to an area of parenchymal scarring. I cannot completely exclude a mass. This can be further assessed with MRI as well. Ruben Acuña Jr., MD Objective Remarks GENERAL: Well-nourished, well-developed male patient, in no apparent distress. SKIN: No rash. Warm and dry. HEENT: Normocephalic. Extraocular motions intact. No scleral icterus. No injection or drainage. Nose without bleeding. MMM. Airway patent. NECK: Trachea midline. Supple. CARDIOVASCULAR: RRR. No murmur appreciated. RESPIRATORY: Nonlabored. Clear to auscultation. Breath sounds equal bilaterally. No wheezes, rales, or rhonchi. GASTROINTESTINAL: Abdomen soft, nondistended and nontender. BS x 4. MUSCULOSKELETAL: Extremities without clubbing, cyanosis, or edema. NEUROLOGICAL: Awake and alert. Oriented to self only. Moves all 4 extremities spontaneously. Motor and sensory function grossly intact. Normal speech. PSYCH: Calm Procedures 10/05/16 right frontal twist drill for ventriculostomy placement 10/20/16 arterial line placement 10/23/16 bedside percutaneous tracheostomy under direct bronchoscopic visualization 10/24/16 PEG tube placement at bedside Medications and IVs Current Medications Medications (Trade) Dose Ordered Sig/Nava Route Start Time Stop Time Status Last Admin (Tylenol) 650 mg Q6H PRN PO 10/05/16 02:45 03/07/17 21:12 (Zofran Inj) 4 mg Q6H PRN IV 10/05/16 02:45 11/27/16 23:26 Miscellaneous Information 1 Q361D XX 10/05/16 02:45 10/05/16 02:45 (Pravachol) 40 mg DAILY PO 10/05/16 09:00 03/16/17 08:06 (Lovenox Inj) 40 mg Q24H SQ 10/23/16 21:00 Future hold 03/15/17 22:37 (Trandate) 100 mg Q8H PO 11/03/16 20:00 03/16/17 03:51 (Norvasc) 5 mg DAILY PO 11/04/16 09:00 03/16/17 08:06 (Imodium) 2 mg UNSCH PRN PO 11/09/16 09:45 11/29/16 12:57 (Lomotil Tab) 1 tab Q6H PRN PO 11/09/16 09:45 (Lactulose Liq) 30 ml QID PRN PO 12/09/16 13:45 (Protonix) 40 mg DAILY PO 12/16/16 09:00 03/16/17 08:06 (Benadryl) 50 mg Q6H PRN PO 12/20/16 17:45 03/09/17 20:11 (Colace) 100 mg Q12H PRN PO 02/12/17 00:15 (Duoneb Neb) 1 ampule Q4HR NEB PRN INH 02/12/17 12:00 (KCl) 40 meq DAILY PO 02/13/17 09:00 03/16/17 08:06 (Tonie-Colace) 1 tab BID PO 02/18/17 09:30 03/16/17 08:06 (SEROquel) 200 mg BID@09,12 PO 02/24/17 09:00 03/16/17 08:06 A/P Problem List: (1) 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 ICD Code: I60.8 - Other nontraumatic subarachnoid hemorrhage Status: Acute (2) Hypertension ICD Code: I10 - Essential (primary) hypertension Status: Chronic (3) Major neurocognitive disorder due to vascular disease, without behavioral disturbance, severe ICD Code: F01.50 - Vascular dementia without behavioral disturbance Status: Acute (4) Septic shock ICD Code: A41.9 - Sepsis, unspecified organism; R65.21 - Severe sepsis with septic shock Status: Resolved (5) Hydrocephalus ICD Code: G91.9 - Hydrocephalus, unspecified Status: Acute (6) Intracranial hemorrhage ICD Code: I62.9 - Nontraumatic intracranial hemorrhage, unspecified Status: Acute (7) Major neurocognitive disorder as late effect of traumatic brain injury with behavioral disturbance ICD Code: S06.9X9S - Unspecified intracranial injury with loss of consciousness of unspecified duration, sequela; F02.81 - Dementia in other diseases classified elsewhere with behavioral disturbance Status: Acute (8) Encephalopathy ICD Code: G93.40 - Encephalopathy, unspecified Status: Acute (9) Sepsis ICD Code: A41.9 - Sepsis, unspecified organism Status: Resolved (10) Pneumonia ICD Code: J18.9 - Pneumonia, unspecified organism Status: Acute (11) Protein-calorie malnutrition, mild ICD Code: E44.1 - Mild protein-calorie malnutrition Status: Acute (12) Acute respiratory failure with hypoxia and hypercarbia ICD Code: J96.01 - Acute respiratory failure with hypoxia; J96.02 - Acute respiratory failure with hypercapnia Status: Acute Assessment and Plan Mr. Nunez is a 51 year old male who was brought to the hospital as a trauma alert due to head injury after he fell in the bathroom and hit his head. Patient was unresponsive for approximately 15 minutes by the time ambulance services arrived. His mentation waxed and waned with GCS ranging from [address] head indicated subarachnoid hemorrhage, acute. Auditory hallucinations - Psychiatry consulted, recommended Seroquel, no new episodes of hallucinations. 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 Neuropsychology following patient ultimately for discharge placement and assistance with recommendations. Per neuropsychology note, ongoing areas of concern include behavioral impulsivity, lack of insight and judgement. - Speech therapy recommends regular diet with thin liquids. Patient is eating well. PEG dc'd 01/08/17. - Continue Seroquel 100mg BID per psychiatry HTN Controlled 03/16. - continue on Norvasc 5mg daily and Labetalol 100mg q8h Acute hypoxic hypercarbic respiratory failure, resolved - Tracheostomy 10/23/16, removed, old trach site healed. - Monitor respiratory status - stable on RA C. difficile colitis, resolved - Completed Flagyl on 10/23 - No diarrhea reported - off Lactinex Constipation The patient is not constipated. - Start lactulose daily and monitor. Hypokalemia, resolved - Continue scheduled KCL 40 meq PO daily. - Follow and replace as needed. Repeat 03/13 stable at 4. DVT prophylaxis: SCDs, YOUSIF hose, Lovenox. Ambulation. GI prophylaxis: Protonix. Discharge Planning Awaiting placement Problem Qualifiers (1) Hypertension: Teo Perez DO Mar 16, 2017 10:48
[2017-03-16 11:39] VITALS: BP 106/58; PULSE 70; RESP 18; TEMP 97.8; O2SAT 96
[2017-03-16] MEDS: LACTULOSE SYRUP 20 GM/30 ML CUP PO SCH (11:40)
[2017-03-16 16:32] VITALS: BP 139/95; PULSE 72; RESP 20; TEMP 97.4; O2SAT 97
[2017-03-16 20:38] VITALS: BP 131/76; PULSE 81; RESP 18; TEMP 97.8; O2SAT 94
[2017-03-16] MEDS: ENOXAPARIN SODIUM 40 MG/0.4 ML SYRINGE SQ SCH (21:30)
[2017-03-17] VITALS (7 sets, daily range): BP systolic 104–126; BP diastolic 63–87; PULSE 64–97; RESP 16–20; TEMP 97.8–98.7; O2SAT 93–97
[2017-03-17] MEDS: LABETALOL HCL 100 MG TAB PO SCH ×3 (04:00→20:00)
[2017-03-17] MEDS: LACTULOSE SYRUP 20 GM/30 ML CUP PO SCH (07:57)
[2017-03-17] MEDS: POTASSIUM CHLORIDE 20 MEQ CONTROLLED RELEASE TAB PO SCH (07:58)
[2017-03-17] MEDS: amLODIPine BESYLATE 5 MG TAB PO SCH (07:58)
[2017-03-17] MEDS: DOCUSATE SODIUM 50 MG/SENNA 8.6 MG TAB PO SCH ×2 (07:58→21:00)
[2017-03-17] MEDS: QUEtiapine FUMARATE 100 MG TAB PO SCH ×2 (07:58→11:36)
[2017-03-17] MEDS: PANTOPRAZOLE SOD 40 MG DELAYED RELEASE TAB PO SCH (07:58)
[2017-03-17] MEDS: PRAVASTATIN SOD 40 MG TAB PO SCH (07:58)
--- NOTE | 2017-03-17 15:32 | HHI.PR ---
Subjective Remarks The patient was resting comfortably in bed. He was talking about various nonsensical items. He had no acute complaints. Objective Vitals Vital Signs Date Time Temp Pulse Resp B/P (MAP) Pulse Ox O2 Delivery O2 Flow Rate FiO2 03/17/17 12:05 98.7 97 17 115/76 (89) 96 03/17/17 08:40 98.1 91 20 124/86 (99) 96 03/17/17 04:32 98.1 79 18 124/66 (85) 93 03/17/17 00:00 97.8 86 18 122/87 (99) 95 03/16/17 20:38 97.8 81 18 131/76 (94) 94 03/16/17 16:32 97.4 72 20 139/95 (110) 97 I/O 03/16/17 03/16/17 03/16/17 03/17/17 03/17/17 03/17/17 07:00 15:00 23:00 07:00 15:00 23:00 Intake Total 330 ml Balance 330 ml Intake Oral 330 ml # Voids 2 3 # Bowel Movements 0 1 Result Diagram: 03/13/17 1713 Imaging Last Impressions Chest X-Ray 02/18/17 0000 Signed Impressions: Service Date/Time: Saturday, February 18, 2017 10:51 - CONCLUSION: Diminished lung volumes. No infiltrate. Tyrese Raymond MD Abdomen X-Ray 02/18/17 0000 Signed Impressions: Service Date/Time: Saturday, February 18, 2017 10:56 - CONCLUSION: Unremarkable abdomen. Tyrese Raymond MD Gall Bladder Ultrasound 02/17/17 0000 Signed Impressions: Service Date/Time: Friday, February 17, 2017 17:45 - CONCLUSION: Mildly enlarged liver and small amount of gallbladder sludge. Tim Hammonds MD Head CT 12/09/16 0000 Signed Impressions: Service Date/Time: Friday, December 09, 2016 17:36 - CONCLUSION: 1. Right ventriculostomy tube remains in place with decrease in ventricular size since November 24. There is some encephalomalacia around the shunt and a probable small infarct in the left basal ganglia. No new hemorrhage or shift. Tip Harris MD Transcranial Doppler Study Complete 10/26/16 0700 Signed Impressions: Service Date/Time: Wednesday, October 26, 2016 08:20 - CONCLUSION: Minimal interval improvement with no evidence for vasospasm. Christian Song MD FACR Neck CTA 10/19/16 0000 Signed Impressions: Service Date/Time: Wednesday, October 19, 2016 14:19 - CONCLUSION: Negative for dissection or significant stenosis. Christian Song MD FACR Head CTA 10/19/16 0000 Signed Impressions: Service Date/Time: Wednesday, October 19, 2016 14:19 - CONCLUSION: 1. Interval development of significant vasospasm in the left MCA and SRI territories. 2. Mild vasospasm in the basilar artery.. Gume Mckeon MD Cerebral Arteriogram 10/19/16 0000 Signed Impressions: Service Date/Time: Wednesday, October 19, 2016 16:06 - CONCLUSION: 1. Vasospasm in the left MCA and SRI territories 2. Spasmolytic infusion, left internal carotid artery as above.. 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 Gume Mckeon MD Pelvis X-Ray 10/05/16109 Signed Impressions: Service Date/Time: Wednesday, October 05, 2016 01:22 - CONCLUSION: Unremarkable examination of the pelvis. Ruben Acuña Jr., MD Chest CT 10/05/16109 Signed Impressions: Service Date/Time: Wednesday, October 05, 2016 01:46 - CONCLUSION: 1. No acute intrathoracic abnormality. 2. Bibasilar atelectasis. 3. Cardiomegaly. 4. Prior granulomatous disease. Ruben Acuña Jr., MD Cervical Spine CT 10/05/16109 Signed Impressions: Service Date/Time: Wednesday, October 05, 2016 01:40 - CONCLUSION: 1. No fracture or dislocation. 2. Multilevel degenerative changes. Ruben Acuña Jr., MD Abdomen/Pelvis CT 10/05/16109 Signed Impressions: Service Date/Time: Wednesday, October 05, 2016 01:46 - CONCLUSION: 1. No acute trauma. 2. Rounded area of decreased density involving the pancreatic head. I cannot completely exclude pancreatic head mass. At some point MRI of the pancreas is suggested to further evaluate. 3. Focal area of poor enhancement involving the left kidney. This may relate to an area of parenchymal scarring. I cannot completely exclude a mass. This can be further assessed with MRI as well. Ruben Acuña Jr., MD Objective Remarks GENERAL: Well-nourished, well-developed male patient, in no apparent distress. SKIN: No rash. Warm and dry. HEENT: Normocephalic. Extraocular motions intact. No scleral icterus. No injection or drainage. Nose without bleeding. MMM. Airway patent. NECK: Trachea midline. Supple. CARDIOVASCULAR: RRR. No murmur appreciated. RESPIRATORY: Nonlabored. Clear to auscultation. Breath sounds equal bilaterally. No wheezes, rales, or rhonchi. GASTROINTESTINAL: Abdomen soft, nondistended and nontender. BS x 4. MUSCULOSKELETAL: Extremities without clubbing, cyanosis, or edema. NEUROLOGICAL: Awake and alert. Oriented to self only. Moves all 4 extremities spontaneously. Motor and sensory function grossly intact. Normal speech. PSYCH: Calm Procedures 10/05/16 right frontal twist drill for ventriculostomy placement 10/20/16 arterial line placement 10/23/16 bedside percutaneous tracheostomy under direct bronchoscopic visualization 10/24/16 PEG tube placement at bedside Medications and IVs Current Medications Medications (Trade) Dose Ordered Sig/Nava Route Start Time Stop Time Status Last Admin (Tylenol) 650 mg Q6H PRN PO 10/05/16 02:45 03/07/17 21:12 (Zofran Inj) 4 mg Q6H PRN IV 10/05/16 02:45 11/27/16 23:26 Miscellaneous Information 1 Q361D XX 10/05/16 02:45 10/05/16 02:45 (Pravachol) 40 mg DAILY PO 10/05/16 09:00 03/17/17 07:58 (Lovenox Inj) 40 mg Q24H SQ 10/23/16 21:00 Future hold 03/16/17 21:30 (Trandate) 100 mg Q8H PO 11/03/16 20:00 03/17/17 11:37 (Norvasc) 5 mg DAILY PO 11/04/16 09:00 03/17/17 07:58 (Imodium) 2 mg UNSCH PRN PO 11/09/16 09:45 11/29/16 12:57 (Lomotil Tab) 1 tab Q6H PRN PO 11/09/16 09:45 (Lactulose Liq) 30 ml QID PRN PO 12/09/16 13:45 (Protonix) 40 mg DAILY PO 12/16/16 09:00 03/17/17 07:58 (Benadryl) 50 mg Q6H PRN PO 12/20/16 17:45 03/09/17 20:11 (Colace) 100 mg Q12H PRN PO 02/12/17 00:15 (Duoneb Neb) 1 ampule Q4HR NEB PRN INH 02/12/17 12:00 (KCl) 40 meq DAILY PO 02/13/17 09:00 03/17/17 07:58 (Tonie-Colace) 1 tab BID PO 02/18/17 09:30 03/17/17 07:58 (SEROquel) 200 mg BID@09,12 PO 02/24/17 09:00 03/17/17 11:36 (Lactulose Liq) 30 ml DAILY PO 03/16/17 10:45 03/17/17 07:57 A/P Problem List: (1) 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 ICD Code: I60.8 - Other nontraumatic subarachnoid hemorrhage Status: Acute (2) Hypertension ICD Code: I10 - Essential (primary) hypertension Status: Chronic (3) Major neurocognitive disorder due to vascular disease, without behavioral disturbance, severe ICD Code: F01.50 - Vascular dementia without behavioral disturbance Status: Acute (4) Septic shock ICD Code: A41.9 - Sepsis, unspecified organism; R65.21 - Severe sepsis with septic shock Status: Resolved (5) Hydrocephalus ICD Code: G91.9 - Hydrocephalus, unspecified Status: Acute (6) Intracranial hemorrhage ICD Code: I62.9 - Nontraumatic intracranial hemorrhage, unspecified Status: Acute (7) Major neurocognitive disorder as late effect of traumatic brain injury with behavioral disturbance ICD Code: S06.9X9S - Unspecified intracranial injury with loss of consciousness of unspecified duration, sequela; F02.81 - Dementia in other diseases classified elsewhere with behavioral disturbance Status: Acute (8) Encephalopathy ICD Code: G93.40 - Encephalopathy, unspecified Status: Acute (9) Sepsis ICD Code: A41.9 - Sepsis, unspecified organism Status: Resolved (10) Pneumonia ICD Code: J18.9 - Pneumonia, unspecified organism Status: Acute (11) Protein-calorie malnutrition, mild ICD Code: E44.1 - Mild protein-calorie malnutrition Status: Acute (12) Acute respiratory failure with hypoxia and hypercarbia ICD Code: J96.01 - Acute respiratory failure with hypoxia; J96.02 - Acute respiratory failure with hypercapnia Status: Acute Assessment and Plan Mr. Nunez is a 51 year old male who was brought to the hospital as a trauma alert due to head injury after he fell in the bathroom and hit his head. Patient was unresponsive for approximately 15 minutes by the time ambulance services arrived. His mentation waxed and waned with GCS ranging from [address] head indicated subarachnoid hemorrhage, acute. Auditory hallucinations - Psychiatry consulted, recommended Seroquel, no new episodes of hallucinations. Intracranial hemorrhage, status post basilar artery coiling 10/05, Status post PHLEBOTOMIST [employer] ASSISTANT shunt on 11/24/2016 Chronic encephalopathy Hydrocephalus Cortical blindness - Neurology signed off. Neuropsychology following patient ultimately for discharge placement and assistance with recommendations. Per neuropsychology note, ongoing areas of concern include behavioral impulsivity, lack of insight and judgement. - Speech therapy recommends regular diet with thin liquids. Patient is eating well. PEG dc'd 01/08/17. - Continue Seroquel 100mg BID per psychiatry HTN Controlled 03/17. - continue on Norvasc 5mg daily and Labetalol 100mg q8h Acute hypoxic hypercarbic respiratory failure, resolved - Tracheostomy 10/23/16, removed, old trach site healed. - Monitor respiratory status - stable on RA C. difficile colitis, resolved - Completed Flagyl on 10/23 - No diarrhea reported - off Lactinex Constipation The patient is not constipated. - Start lactulose daily and monitor. Hypokalemia, resolved - Continue scheduled KCL 40 meq PO daily. - Follow and replace as needed. Repeat 03/13 stable at 4. DVT prophylaxis: SCDs, YOUSIF hose, Lovenox. Ambulation. GI prophylaxis: Protonix. Discharge Planning Awaiting placement Problem Qualifiers (1) Hypertension: Teo Perez DO Mar 17, 2017 15:32
[2017-03-17] MEDS: ENOXAPARIN SODIUM 40 MG/0.4 ML SYRINGE SQ SCH (21:00)
[2017-03-18] MEDS: LABETALOL HCL 100 MG TAB PO SCH ×3 (04:47→22:07)
[2017-03-18 08:08] VITALS: BP 131/87; PULSE 73; RESP 19; TEMP 97.6; O2SAT 94
[2017-03-18] MEDS: LACTULOSE SYRUP 20 GM/30 ML CUP PO SCH (09:00)
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
[2017-03-18] MEDS: PRAVASTATIN SOD 40 MG TAB PO SCH (10:39)
[2017-03-18] MEDS: POTASSIUM CHLORIDE 20 MEQ CONTROLLED RELEASE TAB PO SCH (10:39)
[2017-03-18] MEDS: DOCUSATE SODIUM 50 MG/SENNA 8.6 MG TAB PO SCH ×2 (10:39→22:08)
[2017-03-18] MEDS: amLODIPine BESYLATE 5 MG TAB PO SCH (10:40)
[2017-03-18] MEDS: QUEtiapine FUMARATE 100 MG TAB PO SCH ×2 (10:40→12:49)
[2017-03-18] MEDS: PANTOPRAZOLE SOD 40 MG DELAYED RELEASE TAB PO SCH (10:40)
[2017-03-18 12:56] VITALS: BP 113/56; PULSE 84; RESP 18; TEMP 96.8; O2SAT 97
[2017-03-18 16:46] VITALS: BP 106/61; PULSE 80; RESP 16; TEMP 98; O2SAT 94
[2017-03-18] MEDS ORDERED: HALOPERIDOL LACTATE 5 MG/ML AMP IM ONE (20:00)
[2017-03-18 20:05] VITALS: BP 140/76; PULSE 94; RESP 17; TEMP 98; O2SAT 96
[2017-03-18] MEDS: ENOXAPARIN SODIUM 40 MG/0.4 ML SYRINGE SQ SCH (22:08)
[2017-03-19 01:00] VITALS: BP 136/76; PULSE 95; RESP 17; TEMP 97.6; O2SAT 97
[2017-03-19 04:10] VITALS: BP 146/82; PULSE 89; RESP 17; TEMP 98.4; O2SAT 97
[2017-03-19] MEDS: LABETALOL HCL 100 MG TAB PO SCH ×3 (05:21→21:12)
[2017-03-19 08:00] VITALS: BP 130/84; PULSE 77; RESP 16; TEMP 98.1; O2SAT 94
[2017-03-19] MEDS: amLODIPine BESYLATE 5 MG TAB PO SCH (09:47)
[2017-03-19] MEDS: DOCUSATE SODIUM 50 MG/SENNA 8.6 MG TAB PO SCH ×2 (09:47→21:12)
[2017-03-19] MEDS: PRAVASTATIN SOD 40 MG TAB PO SCH (09:47)
[2017-03-19] MEDS: PANTOPRAZOLE SOD 40 MG DELAYED RELEASE TAB PO SCH (09:47)
[2017-03-19] MEDS: POTASSIUM CHLORIDE 20 MEQ CONTROLLED RELEASE TAB PO SCH (09:47)
[2017-03-19] MEDS: QUEtiapine FUMARATE 100 MG TAB PO SCH ×2 (09:47→12:07)
[2017-03-19] MEDS: LACTULOSE SYRUP 20 GM/30 ML CUP PO SCH (09:48)
--- NOTE | 2017-03-19 10:52 | HHI.PR ---
Subjective Remarks No acute events overnight. Afebrile, vital signs stable. Patient confused this morning. States he needs his maid released from underneath his bed. Objective Vitals Vital Signs Date Time Temp Pulse Resp B/P (MAP) Pulse Ox O2 Delivery O2 Flow Rate FiO2 03/19/17 08:00 98.1 77 16 130/84 (99) 94 03/19/17 04:10 98.4 89 17 146/82 (103) 97 03/19/17 01:00 97.6 95 17 136/76 (96) 97 03/18/17 20:05 98.0 94 17 140/76 (97) 96 03/18/17 16:46 98.0 80 16 106/61 (76) 94 03/18/17 12:56 96.8 84 18 113/56 (75) 97 I/O 03/18/17 03/18/17 03/18/17 03/19/17 03/19/17 03/19/17 07:00 15:00 23:00 07:00 15:00 23:00 Intake Total 1160 ml Output Total 1 ml Balance 1160 ml -1 ml Intake Oral 1160 ml Stool Total 1 ml # Voids 2 Objective Remarks GENERAL: Well-nourished, well-developed male patient, in no apparent distress. SKIN: No rash. Warm and dry. HEENT: Normocephalic. Extraocular motions intact. No scleral icterus. No injection or drainage. Nose without bleeding. MMM. Airway patent. NECK: Trachea midline. Supple. CARDIOVASCULAR: RRR. No murmur appreciated. RESPIRATORY: Nonlabored. Clear to auscultation. Breath sounds equal bilaterally. No wheezes, rales, or rhonchi. GASTROINTESTINAL: Abdomen soft, nondistended and nontender. BS x 4. MUSCULOSKELETAL: Extremities without clubbing, cyanosis, or edema. NEUROLOGICAL: Awake and alert. Oriented to self only. Moves all 4 extremities spontaneously. Motor and sensory function grossly intact. Normal speech. PSYCH: Calm 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 ICD Code: I60.8 - Other nontraumatic subarachnoid hemorrhage Status: Acute (2) Hypertension ICD Code: I10 - Essential (primary) hypertension Status: Chronic (3) Major neurocognitive disorder due to vascular disease, without behavioral disturbance, severe ICD Code: F01.50 - Vascular dementia without behavioral disturbance Status: Acute (4) Septic shock ICD Code: A41.9 - Sepsis, unspecified organism; R65.21 - Severe sepsis with septic shock Status: Resolved (5) Hydrocephalus ICD Code: G91.9 - Hydrocephalus, unspecified Status: Acute (6) Intracranial hemorrhage ICD Code: I62.9 - Nontraumatic intracranial hemorrhage, unspecified Status: Acute (7) Major neurocognitive disorder as late effect of traumatic brain injury with behavioral disturbance ICD Code: S06.9X9S - Unspecified intracranial injury with loss of consciousness of unspecified duration, sequela; F02.81 - Dementia in other diseases classified elsewhere with behavioral disturbance Status: Acute (8) Encephalopathy ICD Code: G93.40 - Encephalopathy, unspecified Status: Acute (9) Sepsis ICD Code: A41.9 - Sepsis, unspecified organism Status: Resolved (10) Pneumonia ICD Code: J18.9 - Pneumonia, unspecified organism Status: Acute (11) Protein-calorie malnutrition, mild ICD Code: E44.1 - Mild protein-calorie malnutrition Status: Acute (12) Acute respiratory failure with hypoxia and hypercarbia ICD Code: J96.01 - Acute respiratory failure with hypoxia; J96.02 - Acute respiratory failure with hypercapnia Status: Acute Assessment and Plan Mr. Nunez is a 51 year old male who was brought to the hospital as a trauma alert due to head injury after he fell in the bathroom and hit his head. Patient was unresponsive for approximately 15 minutes by the time ambulance services arrived. His mentation waxed and waned with GCS ranging from [address] head indicated subarachnoid hemorrhage, acute. Auditory hallucinations - Psychiatry consulted, recommended Seroquel, no new episodes of hallucinations. 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 Neuropsychology following patient ultimately for discharge placement and assistance with recommendations. Per neuropsychology note, ongoing areas of concern include behavioral impulsivity, lack of insight and judgement. - Speech therapy recommends regular diet with thin liquids. Patient is eating well. PEG dc'd 01/08/17. - Continue Seroquel 100mg BID per psychiatry HTN Controlled 03/18. - continue on Norvasc 5mg daily and Labetalol 100mg q8h Acute hypoxic hypercarbic respiratory failure, resolved - Tracheostomy 10/23/16, removed, old trach site healed. - Monitor respiratory status - stable on RA C. difficile colitis, resolved - Completed Flagyl on 10/23 - No diarrhea reported - off Lactinex Constipation The patient is not constipated. - Start lactulose daily and monitor. Hypokalemia, resolved - Continue scheduled KCL 40 meq PO daily. - Follow and replace as needed. DVT prophylaxis: SCDs, YOUSIF han, Lovenox. Ambulation. GI prophylaxis: Protonix. Discharge Planning Awaiting placement Problem Qualifiers (1) Hypertension: Areli Lane MD R3 Mar 19, 2017 10:52
[2017-03-19 11:09] LABS: AUTOMATED NEUTROPHIL # 3.6 TH/MM3 (1.8-7.7); BASOPHIL # 0.1 TH/MM3 (0-0.2); BASOPHIL % 1.2 % (0.0-2.0); EOSINOPHIL # 0.2 TH/MM3 (0-0.4); EOSINOPHIL % 3.8 % (0.0-4.0); HEMATOCRIT 42.1 % (39.0-51.0); HEMOGLOBIN 13.9 GM/DL (13.0-17.0); LYMPH % 28.6 % (9.0-44.0); LYMPHOCYTE # 1.7 TH/MM3 (1.0-4.8); MEAN CELL VOLUME 87.9 FL (80.0-100.0); MEAN PLATELET VOLUME 8.7 FL (7.0-11.0); MONO % 6.4 % (0.0-8.0); MONOCYTE # 0.4 TH/MM3 (0-0.9); PLATELET COUNT 191 TH/MM3 (150-450); RED BLOOD COUNT 4.78 MIL/MM3 (4.50-5.90); RED CELL DISTRIBUTION WIDTH 14.8 % (11.6-17.2)
[2017-03-19 11:43] LABS: BICARBONATE 27.6 MEQ/L (21.0-32.0); CALCIUM 8.8 MG/DL (8.5-10.1); CREATININE 1.31 MG/DL (0.60-1.30)
[2017-03-19 12:00] VITALS: BP 134/69; PULSE 84; RESP 18; TEMP 98.2; O2SAT 93
[2017-03-19 16:00] VITALS: BP 138/78; PULSE 88; RESP 18; TEMP 97.7; O2SAT 92
[2017-03-19 20:09] VITALS: BP 126/78; PULSE 82; RESP 17; TEMP 97.6; O2SAT 94
[2017-03-19] MEDS: ENOXAPARIN SODIUM 40 MG/0.4 ML SYRINGE SQ SCH (21:12)
[2017-03-20] MEDS: LABETALOL HCL 100 MG TAB PO SCH ×3 (04:17→20:11)
[2017-03-20 08:09] VITALS: BP 105/87; PULSE 75; RESP 18; TEMP 97.2; O2SAT 94
[2017-03-20] MEDS: PRAVASTATIN SOD 40 MG TAB PO SCH (09:32)
[2017-03-20] MEDS: PANTOPRAZOLE SOD 40 MG DELAYED RELEASE TAB PO SCH (09:32)
[2017-03-20] MEDS: LACTULOSE SYRUP 20 GM/30 ML CUP PO SCH (09:32)
[2017-03-20] MEDS: POTASSIUM CHLORIDE 20 MEQ CONTROLLED RELEASE TAB PO SCH (09:32)
[2017-03-20] MEDS: amLODIPine BESYLATE 5 MG TAB PO SCH (09:32)
[2017-03-20] MEDS: DOCUSATE SODIUM 50 MG/SENNA 8.6 MG TAB PO SCH ×2 (09:32→20:12)
[2017-03-20] MEDS: QUEtiapine FUMARATE 100 MG TAB PO SCH ×2 (09:32→12:15)
[2017-03-20 12:07] VITALS: BP 127/78; PULSE 91; RESP 18; TEMP 98.3; O2SAT 94
--- NOTE | 2017-03-20 13:03 | HHI.PR ---
Subjective Remarks Patient very somnolent, he just had Seroquel as I was told by the nurse I tried to wake him up but he goes right back to sleep Objective Vitals Vital Signs Date Time Temp Pulse Resp B/P (MAP) Pulse Ox O2 Delivery O2 Flow Rate FiO2 03/20/17 12:07 98.3 91 18 127/78 (94) 94 03/20/17 08:09 97.2 75 18 105/87 (93) 94 03/19/17 20:09 97.6 82 17 126/78 (94) 94 03/19/17 16:00 97.7 88 18 138/78 (98) 92 I/O 03/19/17 03/19/17 03/19/17 03/20/17 03/20/17 03/20/17 07:00 15:00 23:00 07:00 15:00 23:00 Intake Total 720 ml 480 ml Balance 720 ml 480 ml Intake Oral 720 ml 480 ml # Voids 3 4 # Bowel Movements 1 Result Diagram: 03/19/17 1044 03/19/17 1044 Objective Remarks - - GENERAL: This is a well-nourished, well-developed patient, somnolent SKIN: No rashes, warm and dry HEAD: Atraumatic. Normocephalic. EYES: Pupils equal round and reactive. Extraocular motions intact. No scleral icterus. ENT: Nose without bleeding, or drainage, Airway patent. NECK: Trachea midline. Supple CARDIOVASCULAR: Regular rate and rhythm without murmurs, gallops, or rubs. RESPIRATORY: Fair air entry bilaterally. No wheezes, rales, or rhonchi. GASTROINTESTINAL: Abdomen soft, non-tender, nondistended. Positive bowel sounds MUSCULOSKELETAL: Extremities without clubbing, cyanosis, or edema. Pedal pulses appreciated NEUROLOGICAL: Somnolent. Moves all extremity. Spontaneously 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 ICD Code: I60.8 - Other nontraumatic subarachnoid hemorrhage Status: Acute (2) Hypertension ICD Code: I10 - Essential (primary) hypertension Status: Chronic (3) Major neurocognitive disorder due to vascular disease, without behavioral disturbance, severe ICD Code: F01.50 - Vascular dementia without behavioral disturbance Status: Acute (4) Septic shock ICD Code: A41.9 - Sepsis, unspecified organism; R65.21 - Severe sepsis with septic shock Status: Resolved (5) Hydrocephalus ICD Code: G91.9 - Hydrocephalus, unspecified Status: Acute (6) Intracranial hemorrhage ICD Code: I62.9 - Nontraumatic intracranial hemorrhage, unspecified Status: Acute (7) Major neurocognitive disorder as late effect of traumatic brain injury with behavioral disturbance ICD Code: S06.9X9S - Unspecified intracranial injury with loss of consciousness of unspecified duration, sequela; F02.81 - Dementia in other diseases classified elsewhere with behavioral disturbance Status: Acute (8) Encephalopathy ICD Code: G93.40 - Encephalopathy, unspecified Status: Acute (9) Sepsis ICD Code: A41.9 - Sepsis, unspecified organism Status: Resolved (10) Pneumonia ICD Code: J18.9 - Pneumonia, unspecified organism Status: Acute (11) Protein-calorie malnutrition, mild ICD Code: E44.1 - Mild protein-calorie malnutrition Status: Acute (12) Acute respiratory failure with hypoxia and hypercarbia ICD Code: J96.01 - Acute respiratory failure with hypoxia; J96.02 - Acute respiratory failure with hypercapnia Status: Acute Assessment and Plan 03/20: Continue current care, check BMP Mr. Nunez is a 51 year old male who was brought to the hospital as a trauma alert due to head injury after he fell in the bathroom and hit his head. Patient was unresponsive for approximately 15 minutes by the time ambulance services arrived. His mentation waxed and waned with GCS ranging from [address] head indicated subarachnoid hemorrhage, acute. Auditory hallucinations - Psychiatry consulted, recommended Seroquel, no new episodes of hallucinations. 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 Neuropsychology following patient ultimately for discharge placement and assistance with recommendations. Per neuropsychology note, ongoing areas of concern include behavioral impulsivity, lack of insight and judgement. - Speech therapy recommends regular diet with thin liquids. Patient is eating well. PEG dc'd 01/08/17. - Continue Seroquel 100mg BID per psychiatry HTN Controlled 03/18. - continue on Norvasc 5mg daily and Labetalol 100mg q8h Acute hypoxic hypercarbic respiratory failure, resolved - Tracheostomy 10/23/16, removed, old trach site healed. - Monitor respiratory status - stable on RA C. difficile colitis, resolved - Completed Flagyl on 10/23 - No diarrhea reported - off Lactinex Constipation The patient is not constipated. - Start lactulose daily and monitor. Hypokalemia, resolved - Continue scheduled KCL 40 meq PO daily. - Follow and replace as needed. DVT prophylaxis: SCDs, YOUSIF han, Lovenox. Ambulation. GI prophylaxis: Protonix. Discharge Planning Difficulty placement shoe parts caser following Problem Qualifiers (1) Hypertension: Maggy Chi MD Mar 20, 2017 13:03
[2017-03-20 16:06] VITALS: BP 125/83; PULSE 103; RESP 18; TEMP 98.6; O2SAT 94
[2017-03-20 20:00] VITALS: BP 110/63; PULSE 92; RESP 18; TEMP 98.2; O2SAT 92
[2017-03-20] MEDS: ENOXAPARIN SODIUM 40 MG/0.4 ML SYRINGE SQ SCH (20:11)
[2017-03-21 04:00] VITALS: BP 129/79; PULSE 72; RESP 18; TEMP 97.5; O2SAT 94
[2017-03-21] MEDS: LABETALOL HCL 100 MG TAB PO SCH ×3 (04:27→21:07)
[2017-03-21 08:09] VITALS: BP 132/85; PULSE 77; RESP 20; TEMP 97.7; O2SAT 95
[2017-03-21] MEDS: POTASSIUM CHLORIDE 20 MEQ CONTROLLED RELEASE TAB PO SCH (08:28)
[2017-03-21] MEDS: PRAVASTATIN SOD 40 MG TAB PO SCH (08:28)
[2017-03-21] MEDS: PANTOPRAZOLE SOD 40 MG DELAYED RELEASE TAB PO SCH (08:28)
[2017-03-21] MEDS: LACTULOSE SYRUP 20 GM/30 ML CUP PO SCH (08:28)
[2017-03-21] MEDS: DOCUSATE SODIUM 50 MG/SENNA 8.6 MG TAB PO SCH ×2 (08:28→21:07)
[2017-03-21] MEDS: amLODIPine BESYLATE 5 MG TAB PO SCH (08:28)
[2017-03-21] MEDS: QUEtiapine FUMARATE 100 MG TAB PO SCH ×2 (08:28→12:02)
[2017-03-21 10:08] LABS: BICARBONATE 28.5 MEQ/L (21.0-32.0); CALCIUM 9.1 MG/DL (8.5-10.1); CREATININE 1.24 MG/DL (0.60-1.30)
[2017-03-21 12:08] VITALS: BP 131/83; PULSE 75; RESP 20; TEMP 97.2; O2SAT 94
--- NOTE | 2017-03-21 15:46 | HHI.PR ---
Subjective Remarks No event overnight No change in clinical picture No fever Looks comfortable Objective Vitals Vital Signs Date Time Temp Pulse Resp B/P (MAP) Pulse Ox O2 Delivery O2 Flow Rate FiO2 03/21/17 12:08 97.2 75 20 131/83 (99) 94 03/21/17 08:09 97.7 77 20 132/85 (101) 95 03/21/17 04:00 97.5 72 18 129/79 (96) 94 03/20/17 20:00 98.2 92 18 110/63 (79) 92 03/20/17 16:06 98.6 103 18 125/83 (97) 94 I/O 03/20/17 03/20/17 03/20/17 03/21/17 03/21/17 03/21/17 07:00 15:00 23:00 07:00 15:00 23:00 Intake Total 480 ml 840 ml 600 ml Balance 480 ml 840 ml 600 ml Intake Oral 480 ml 840 ml 600 ml # Voids 4 5 2 2 # Bowel Movements 0 0 1 Result Diagram: 03/19/17 1044 03/21/17 0849 Objective Remarks - - GENERAL: This is a well-nourished, well-developed patient, somnolent SKIN: No rashes, warm and dry HEAD: Atraumatic. Normocephalic. EYES: Pupils equal round and reactive. Extraocular motions intact. No scleral icterus. ENT: Nose without bleeding, or drainage, Airway patent. NECK: Trachea midline. Supple CARDIOVASCULAR: Regular rate and rhythm without murmurs, gallops, or rubs. RESPIRATORY: Fair air entry bilaterally. No wheezes, rales, or rhonchi. GASTROINTESTINAL: Abdomen soft, non-tender, nondistended. Positive bowel sounds MUSCULOSKELETAL: Extremities without clubbing, cyanosis, or edema. Pedal pulses appreciated NEUROLOGICAL: Somnolent. Moves all extremity. Spontaneously 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 ICD Code: I60.8 - Other nontraumatic subarachnoid hemorrhage Status: Acute (2) Hypertension ICD Code: I10 - Essential (primary) hypertension Status: Chronic (3) Major neurocognitive disorder due to vascular disease, without behavioral disturbance, severe ICD Code: F01.50 - Vascular dementia without behavioral disturbance Status: Acute (4) Septic shock ICD Code: A41.9 - Sepsis, unspecified organism; R65.21 - Severe sepsis with septic shock Status: Resolved (5) Hydrocephalus ICD Code: G91.9 - Hydrocephalus, unspecified Status: Acute (6) Intracranial hemorrhage ICD Code: I62.9 - Nontraumatic intracranial hemorrhage, unspecified Status: Acute (7) Major neurocognitive disorder as late effect of traumatic brain injury with behavioral disturbance ICD Code: S06.9X9S - Unspecified intracranial injury with loss of consciousness of unspecified duration, sequela; F02.81 - Dementia in other diseases classified elsewhere with behavioral disturbance Status: Acute (8) Encephalopathy ICD Code: G93.40 - Encephalopathy, unspecified Status: Acute (9) Sepsis ICD Code: A41.9 - Sepsis, unspecified organism Status: Resolved (10) Pneumonia ICD Code: J18.9 - Pneumonia, unspecified organism Status: Acute (11) Protein-calorie malnutrition, mild ICD Code: E44.1 - Mild protein-calorie malnutrition Status: Acute (12) Acute respiratory failure with hypoxia and hypercarbia ICD Code: J96.01 - Acute respiratory failure with hypoxia; J96.02 - Acute respiratory failure with hypercapnia Status: Acute Assessment and Plan 03/20: Continue current care, check BMP 03/21: BMP reviewed, and normal limits, continue current care Mr. Nunez is a 51 year old male who was brought to the hospital as a trauma alert due to head injury after he fell in the bathroom and hit his head. Patient was unresponsive for approximately 15 minutes by the time ambulance services arrived. His mentation waxed and waned with GCS ranging from [address] head indicated subarachnoid hemorrhage, acute. Auditory hallucinations - Psychiatry consulted, recommended Seroquel, no new episodes of hallucinations. 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 Neuropsychology following patient ultimately for discharge placement and assistance with recommendations. Per neuropsychology note, ongoing areas of concern include behavioral impulsivity, lack of insight and judgement. - Speech therapy recommends regular diet with thin liquids. Patient is eating well. PEG dc'd 01/08/17. - Continue Seroquel 100mg BID per psychiatry HTN Controlled 03/18. - continue on Norvasc 5mg daily and Labetalol 100mg q8h Acute hypoxic hypercarbic respiratory failure, resolved - Tracheostomy 10/23/16, removed, old trach site healed. - Monitor respiratory status - stable on RA C. difficile colitis, resolved - Completed Flagyl on 10/23 - No diarrhea reported - off Lactinex Constipation The patient is not constipated. - Start lactulose daily and monitor. Hypokalemia, resolved - Continue scheduled KCL 40 meq PO daily. - Follow and replace as needed. DVT prophylaxis: SCDs, YOUSIF hose, Lovenox. Ambulation. GI prophylaxis: Protonix. Discharge Planning Difficulty placement shelter case manager following Problem Qualifiers (1) Hypertension: Maggy Chi MD Mar 21, 2017 15:46
[2017-03-21 16:16] VITALS: BP 126/89; PULSE 75; RESP 20; TEMP 98.2; O2SAT 95
[2017-03-21 20:30] VITALS: BP 131/80; PULSE 89; RESP 16; TEMP 97.7; O2SAT 94
[2017-03-21] MEDS: ENOXAPARIN SODIUM 40 MG/0.4 ML SYRINGE SQ SCH (21:07)
[2017-03-22 04:00] VITALS: BP 124/75; PULSE 74; RESP 20; TEMP 98.2; O2SAT 94
[2017-03-22] MEDS: LABETALOL HCL 100 MG TAB PO SCH ×3 (04:09→22:09)
[2017-03-22 08:09] VITALS: BP 129/78; PULSE 74; RESP 20; TEMP 98.3; O2SAT 94
[2017-03-22] MEDS: POTASSIUM CHLORIDE 20 MEQ CONTROLLED RELEASE TAB PO SCH (09:33)
[2017-03-22] MEDS: QUEtiapine FUMARATE 100 MG TAB PO SCH ×2 (09:33→12:15)
[2017-03-22] MEDS: PANTOPRAZOLE SOD 40 MG DELAYED RELEASE TAB PO SCH (09:33)
[2017-03-22] MEDS: LACTULOSE SYRUP 20 GM/30 ML CUP PO SCH (09:33)
[2017-03-22] MEDS: PRAVASTATIN SOD 40 MG TAB PO SCH (09:33)
[2017-03-22] MEDS: DOCUSATE SODIUM 50 MG/SENNA 8.6 MG TAB PO SCH ×2 (09:34→22:09)
[2017-03-22] MEDS: amLODIPine BESYLATE 5 MG TAB PO SCH (09:34)
--- NOTE | 2017-03-22 11:35 | HHI.PR ---
Neuropsych Behavior Behavior: Intact: Behavior, Coping/Acceptance, Cooperative w/ Treatment, Motivation, Frustration Tolerance/[place], Impulsive/Agitated Cognitive Cognitive: Severe: Cognitive, Attention/Concentration, Confused/Orientation, Insight/Awareness, Judgement/Problem-Solving, Memory Psychosocial Psychosocial: Severe: Psychosocial, Family/Other Adjustment, Realistic Expectation, Unable to Asses: Self-Esteem/Confidence Progress Notes/Response to Tx Contents of Sessions: Adjustment, Level of Consciousness Time with Patient: 15 minutes Premorbid psychological status Premorbid Cognitive, Emotional and Behavioral Status: Unable to Assess. The patient past history is unknown as there has been no family present. Behavioral Reactions of Patient and Family/Support System: Unable to Assess. The patients family is not present. Emotional/Behavioral Status of Patient and Family/Support System: Unable to Assess. Pertinent issues, if appropriate to this patients clinical care, are described in detail above. Maximizing acute care outcome It is recommended that the patient be monitored for emergent behavioral impulsivity as the medical condition evolves. This patients neuropathological challenges may limit their rehabilitation potential going forward, and these challenges will require specialized therapeutic skills to maximize outcome. Anticipated Problems Ongoing areas of concern will include behavioral impulsivity, lack of insight and judgment, which is expected to improve with time and treatment. Treatment Plan This clinician will continue to follow with you throughout the course of this patients acute care stay, and I will be available to meet with the patients family/support system to facilitate their understanding and the ongoing care of their family member. The goals of neuropsychological intervention shall be both educational and supportive to the family/support system as is deemed clinically appropriate. Impression This patient has suffered a significant traumatic brain injury secondary to a fall on 10/05/2016. 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 A consequence of this is that he is misperceiving objects in his environment, and his altered cognition is "filling in the gaps. Diagnosis: (1) Major neurocognitive disorder due to vascular disease, without behavioral disturbance, severe Status: Acute (2) Cortical blindness Status: Acute Progress Note Narrative Ongoing follow-up of patient seen bedside. The patient was awake, conversant and calm. He denied previous delusional perceptions described elsewhere in his chart. No new complaints. I will continue to follow. Jeremy Workman PhD Mar 22, 2017 11:35 am
[2017-03-22 12:07] VITALS: BP 122/75; PULSE 88; RESP 20; TEMP 97.6; O2SAT 94
--- NOTE | 2017-03-22 15:54 | HHI.PR ---
Subjective Remarks Resting comfortably in bed No event overnight Denied chest and or short of breath No fever or chills Objective Vitals Vital Signs Date Time Temp Pulse Resp B/P (MAP) Pulse Ox O2 Delivery O2 Flow Rate FiO2 03/22/17 12:07 97.6 88 20 122/75 (91) 94 03/22/17 08:09 98.3 74 20 129/78 (95) 94 03/22/17 04:00 98.2 74 20 124/75 (91) 94 03/21/17 20:30 97.7 89 16 131/80 (97) 94 03/21/17 16:16 98.2 75 20 126/89 (101) 95 I/O 03/21/17 03/21/17 03/21/17 03/22/17 03/22/17 03/22/17 06:59 14:59 22:59 06:59 14:59 22:59 Intake Total 600 ml 840 ml Balance 600 ml 840 ml Intake Oral 600 ml 840 ml # Voids 2 2 4 # Bowel Movements 0 1 0 Result Diagram: 03/19/17 1044 03/21/17 0849 Objective Remarks - - GENERAL: This is a well-nourished, well-developed patient, somnolent SKIN: No rashes, warm and dry HEAD: Atraumatic. Normocephalic. EYES: Pupils equal round and reactive. Extraocular motions intact. No scleral icterus. ENT: Nose without bleeding, or drainage, Airway patent. NECK: Trachea midline. Supple CARDIOVASCULAR: Regular rate and rhythm without murmurs, gallops, or rubs. RESPIRATORY: Fair air entry bilaterally. No wheezes, rales, or rhonchi. GASTROINTESTINAL: Abdomen soft, non-tender, nondistended. Positive bowel sounds MUSCULOSKELETAL: Extremities without clubbing, cyanosis, or edema. Pedal pulses appreciated NEUROLOGICAL: Somnolent. Moves all extremity. Spontaneously 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 ICD Code: I60.8 - Other nontraumatic subarachnoid hemorrhage Status: Acute (2) Hypertension ICD Code: I10 - Essential (primary) hypertension Status: Chronic (3) Major neurocognitive disorder due to vascular disease, without behavioral disturbance, severe ICD Code: F01.50 - Vascular dementia without behavioral disturbance Status: Acute (4) Septic shock ICD Code: A41.9 - Sepsis, unspecified organism; R65.21 - Severe sepsis with septic shock Status: Resolved (5) Hydrocephalus ICD Code: G91.9 - Hydrocephalus, unspecified Status: Acute (6) Intracranial hemorrhage ICD Code: I62.9 - Nontraumatic intracranial hemorrhage, unspecified Status: Acute (7) Major neurocognitive disorder as late effect of traumatic brain injury with behavioral disturbance ICD Code: S06.9X9S - Unspecified intracranial injury with loss of consciousness of unspecified duration, sequela; F02.81 - Dementia in other diseases classified elsewhere with behavioral disturbance Status: Acute (8) Encephalopathy ICD Code: G93.40 - Encephalopathy, unspecified Status: Acute (9) Sepsis ICD Code: A41.9 - Sepsis, unspecified organism Status: Resolved (10) Pneumonia ICD Code: J18.9 - Pneumonia, unspecified organism Status: Acute (11) Protein-calorie malnutrition, mild ICD Code: E44.1 - Mild protein-calorie malnutrition Status: Acute (12) Acute respiratory failure with hypoxia and hypercarbia ICD Code: J96.01 - Acute respiratory failure with hypoxia; J96.02 - Acute respiratory failure with hypercapnia Status: Acute Assessment and Plan 03/20: Continue current care, check BMP 03/21: BMP reviewed, and normal limits, continue current care 03/22: No acute issue, no complaint, continue current care A/P: Mr. Nunez is a 51 year old male who was brought to the hospital as a trauma alert due to head injury after he fell in the bathroom and hit his head. Patient was unresponsive for approximately 15 minutes by the time ambulance services arrived. His mentation waxed and waned with GCS ranging from [address] head indicated subarachnoid hemorrhage, acute. Auditory hallucinations - Psychiatry consulted, recommended Seroquel, no new episodes of hallucinations. 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 Neuropsychology following patient ultimately for discharge placement and assistance with recommendations. Per neuropsychology note, ongoing areas of concern include behavioral impulsivity, lack of insight and judgement. - Speech therapy recommends regular diet with thin liquids. Patient is eating well. PEG dc'd 01/08/17. - Continue Seroquel 100mg BID per psychiatry HTN Controlled 03/18. - continue on Norvasc 5mg daily and Labetalol 100mg q8h Acute hypoxic hypercarbic respiratory failure, resolved - Tracheostomy 10/23/16, removed, old trach site healed. - Monitor respiratory status - stable on RA C. difficile colitis, resolved - Completed Flagyl on 10/23 - No diarrhea reported - off Lactinex Constipation The patient is not constipated. - Start lactulose daily and monitor. Hypokalemia, resolved - Continue scheduled KCL 40 meq PO daily. - Follow and replace as needed. DVT prophylaxis: SCDs, YOUSIF han, Lovenox. Ambulation. GI prophylaxis: Protonix. Discharge Planning Difficulty placement case management specialist following Problem Qualifiers (1) Hypertension: Maggy Chi MD Mar 22, 2017 15:54
[2017-03-22 16:53] VITALS: BP 126/80; PULSE 81; RESP 20; TEMP 97.1; O2SAT 94
[2017-03-22 17:50] VITALS: O2SAT 94
[2017-03-22] MEDS: ENOXAPARIN SODIUM 40 MG/0.4 ML SYRINGE SQ SCH (22:09)
[2017-03-23] VITALS (8 sets, daily range): BP systolic 93–124; BP diastolic 58–76; PULSE 76–94; RESP 18–20; TEMP 94.8–98.6; O2SAT 91–100
[2017-03-23] MEDS: LABETALOL HCL 100 MG TAB PO SCH ×3 (04:52→20:33)
[2017-03-23] MEDS: QUEtiapine FUMARATE 100 MG TAB PO SCH ×2 (08:27→12:07)
[2017-03-23] MEDS: LACTULOSE SYRUP 20 GM/30 ML CUP PO SCH (08:27)
[2017-03-23] MEDS: POTASSIUM CHLORIDE 20 MEQ CONTROLLED RELEASE TAB PO SCH (08:27)
[2017-03-23] MEDS: DOCUSATE SODIUM 50 MG/SENNA 8.6 MG TAB PO SCH ×2 (08:28→20:33)
[2017-03-23] MEDS: PANTOPRAZOLE SOD 40 MG DELAYED RELEASE TAB PO SCH (08:28)
[2017-03-23] MEDS: PRAVASTATIN SOD 40 MG TAB PO SCH (08:28)
[2017-03-23] MEDS: amLODIPine BESYLATE 5 MG TAB PO SCH (08:28)
--- NOTE | 2017-03-23 14:41 | HHI.PR ---
Subjective Remarks Patient sleeping on the chair by the nurse station, no acute issue overnight Woke up to verbal stimuli, as usual he does not converse coherently Objective Vitals Vital Signs Date Time Temp Pulse Resp B/P (MAP) Pulse Ox O2 Delivery O2 Flow Rate FiO2 03/23/17 12:00 97.8 94 20 118/69 (85) 93 03/23/17 09:09 98.3 76 20 114/76 (89) 93 03/23/17 08:48 97 Nasal Cannula 2.00 03/23/17 04:00 94.8 85 20 115/67 (83) 98 03/23/17 00:36 98.6 89 20 93/63 (73) 98 03/22/17 17:50 94 21 03/22/17 16:53 97.1 81 20 126/80 (95) 94 I/O 03/22/17 03/22/17 03/22/17 03/23/17 03/23/17 03/23/17 07:00 15:00 23:00 07:00 15:00 23:00 Intake Total 840 ml Balance 840 ml Intake Oral 840 ml # Voids 4 # Bowel Movements 0 Result Diagram: 03/19/17 1044 03/21/17 0849 Objective Remarks - - GENERAL: This is a well-nourished, well-developed patient, somnolent SKIN: No rashes, warm and dry HEAD: Atraumatic. Normocephalic. EYES: Pupils equal round and reactive. Extraocular motions intact. No scleral icterus. ENT: Nose without bleeding, or drainage, Airway patent. NECK: Trachea midline. Supple CARDIOVASCULAR: Regular rate and rhythm without murmurs, gallops, or rubs. RESPIRATORY: Fair air entry bilaterally. No wheezes, rales, or rhonchi. GASTROINTESTINAL: Abdomen soft, non-tender, nondistended. Positive bowel sounds MUSCULOSKELETAL: Extremities without clubbing, cyanosis, or edema. Pedal pulses appreciated NEUROLOGICAL: Somnolent. Moves all extremity. Spontaneously 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 ICD Code: I60.8 - Other nontraumatic subarachnoid hemorrhage Status: Acute (2) Hypertension ICD Code: I10 - Essential (primary) hypertension Status: Chronic (3) Major neurocognitive disorder due to vascular disease, without behavioral disturbance, severe ICD Code: F01.50 - Vascular dementia without behavioral disturbance Status: Acute (4) Septic shock ICD Code: A41.9 - Sepsis, unspecified organism; R65.21 - Severe sepsis with septic shock Status: Resolved (5) Hydrocephalus ICD Code: G91.9 - Hydrocephalus, unspecified Status: Acute (6) Intracranial hemorrhage ICD Code: I62.9 - Nontraumatic intracranial hemorrhage, unspecified Status: Acute (7) Major neurocognitive disorder as late effect of traumatic brain injury with behavioral disturbance ICD Code: S06.9X9S - Unspecified intracranial injury with loss of consciousness of unspecified duration, sequela; F02.81 - Dementia in other diseases classified elsewhere with behavioral disturbance Status: Acute (8) Encephalopathy ICD Code: G93.40 - Encephalopathy, unspecified Status: Acute (9) Sepsis ICD Code: A41.9 - Sepsis, unspecified organism Status: Resolved (10) Pneumonia ICD Code: J18.9 - Pneumonia, unspecified organism Status: Acute (11) Protein-calorie malnutrition, mild ICD Code: E44.1 - Mild protein-calorie malnutrition Status: Acute (12) Acute respiratory failure with hypoxia and hypercarbia ICD Code: J96.01 - Acute respiratory failure with hypoxia; J96.02 - Acute respiratory failure with hypercapnia Status: Acute Assessment and Plan 03/20: Continue current care, check BMP 03/21: BMP reviewed, and normal limits, continue current care 03/22: No acute issue, no complaint, continue current care 03/23: No acute issue continue ongoing management, placement for ongoing A/P: Mr. Nunez is a 51 year old male who was brought to the hospital as a trauma alert due to head injury after he fell in the bathroom and hit his head. Patient was unresponsive for approximately 15 minutes by the time ambulance services arrived. His mentation waxed and waned with GCS ranging from [address] head indicated subarachnoid hemorrhage, acute. Auditory hallucinations - Psychiatry consulted, recommended Seroquel, no new episodes of hallucinations. 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 Neuropsychology following patient ultimately for discharge placement and assistance with recommendations. Per neuropsychology note, ongoing areas of concern include behavioral impulsivity, lack of insight and judgement. - Speech therapy recommends regular diet with thin liquids. Patient is eating well. PEG dc'd 01/08/17. - Continue Seroquel 100mg BID per psychiatry HTN Controlled 03/18. - continue on Norvasc 5mg daily and Labetalol 100mg q8h Acute hypoxic hypercarbic respiratory failure, resolved - Tracheostomy 10/23/16, removed, old trach site healed. - Monitor respiratory status - stable on RA C. difficile colitis, resolved - Completed Flagyl on 10/23 - No diarrhea reported - off Lactinex Constipation The patient is not constipated. - Start lactulose daily and monitor. Hypokalemia, resolved - Continue scheduled KCL 40 meq PO daily. - Follow and replace as needed. DVT prophylaxis: SCDs, YOUSIF hose, Lovenox. Ambulation. GI prophylaxis: Protonix. Discharge Planning Difficulty placement machine adjuster leader case trim following Problem Qualifiers (1) Hypertension: Maggy Chi MD Mar 23, 2017 14:41
[2017-03-23] MEDS: ENOXAPARIN SODIUM 40 MG/0.4 ML SYRINGE SQ SCH (20:33)
[2017-03-24 04:00] VITALS: BP 131/76; PULSE 74; RESP 18; TEMP 98.5; O2SAT 95
[2017-03-24] MEDS: LABETALOL HCL 100 MG TAB PO SCH ×3 (04:47→20:49)
[2017-03-24 08:00] VITALS: BP 124/77; PULSE 95; RESP 18; TEMP 98.1; O2SAT 94
[2017-03-24] MEDS: LACTULOSE SYRUP 20 GM/30 ML CUP PO SCH (09:53)
[2017-03-24] MEDS: amLODIPine BESYLATE 5 MG TAB PO SCH (09:54)
[2017-03-24] MEDS: PRAVASTATIN SOD 40 MG TAB PO SCH (09:54)
[2017-03-24] MEDS: POTASSIUM CHLORIDE 20 MEQ CONTROLLED RELEASE TAB PO SCH (09:54)
[2017-03-24] MEDS: PANTOPRAZOLE SOD 40 MG DELAYED RELEASE TAB PO SCH (09:55)
[2017-03-24] MEDS: QUEtiapine FUMARATE 100 MG TAB PO SCH ×2 (09:55→12:41)
[2017-03-24] MEDS: DOCUSATE SODIUM 50 MG/SENNA 8.6 MG TAB PO SCH ×2 (09:55→20:49)
[2017-03-24 12:00] VITALS: BP 100/61; PULSE 100; RESP 18; TEMP 98.1; O2SAT 93
[2017-03-24 16:00] VITALS: BP 117/74; PULSE 88; RESP 18; TEMP 97.6; O2SAT 94
--- NOTE | 2017-03-24 16:22 | HHI.PR ---
Subjective Remarks Sitting comfortably on the chair awake alert He is encephalopathic, not engaged into coherent conversation Objective Vitals Vital Signs Date Time Temp Pulse Resp B/P (MAP) Pulse Ox O2 Delivery O2 Flow Rate FiO2 03/24/17 12:00 98.1 100 18 100/61 (74) 93 03/24/17 08:00 98.1 95 18 124/77 (93) 94 03/24/17 04:00 98.5 74 18 131/76 (94) 95 03/23/17 21:29 98.2 89 18 124/74 (91) 93 03/23/17 18:04 100 Nasal Cannula 2.00 I/O 03/23/17 03/23/17 03/23/17 03/24/17 03/24/17 03/24/17 07:00 15:00 23:00 07:00 15:00 23:00 Intake Total 960 ml Balance 960 ml Intake Oral 960 ml # Voids 3 5 # Bowel Movements 1 Result Diagram: 03/21/17 0849 Objective Remarks - - GENERAL: This is a well-nourished, well-developed patient, somnolent SKIN: No rashes, warm and dry HEAD: Atraumatic. Normocephalic. EYES: Pupils equal round and reactive. Extraocular motions intact. No scleral icterus. ENT: Nose without bleeding, or drainage, Airway patent. NECK: Trachea midline. Supple CARDIOVASCULAR: Regular rate and rhythm without murmurs, gallops, or rubs. RESPIRATORY: Fair air entry bilaterally. No wheezes, rales, or rhonchi. GASTROINTESTINAL: Abdomen soft, non-tender, nondistended. Positive bowel sounds MUSCULOSKELETAL: Extremities without clubbing, cyanosis, or edema. Pedal pulses appreciated NEUROLOGICAL: Somnolent. Moves all extremity. Spontaneously 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 ICD Code: I60.8 - Other nontraumatic subarachnoid hemorrhage Status: Acute (2) Hypertension ICD Code: I10 - Essential (primary) hypertension Status: Chronic (3) Major neurocognitive disorder due to vascular disease, without behavioral disturbance, severe ICD Code: F01.50 - Vascular dementia without behavioral disturbance Status: Acute (4) Septic shock ICD Code: A41.9 - Sepsis, unspecified organism; R65.21 - Severe sepsis with septic shock Status: Resolved (5) Hydrocephalus ICD Code: G91.9 - Hydrocephalus, unspecified Status: Acute (6) Intracranial hemorrhage ICD Code: I62.9 - Nontraumatic intracranial hemorrhage, unspecified Status: Acute (7) Major neurocognitive disorder as late effect of traumatic brain injury with behavioral disturbance ICD Code: S06.9X9S - Unspecified intracranial injury with loss of consciousness of unspecified duration, sequela; F02.81 - Dementia in other diseases classified elsewhere with behavioral disturbance Status: Acute (8) Encephalopathy ICD Code: G93.40 - Encephalopathy, unspecified Status: Acute (9) Sepsis ICD Code: A41.9 - Sepsis, unspecified organism Status: Resolved (10) Pneumonia ICD Code: J18.9 - Pneumonia, unspecified organism Status: Acute (11) Protein-calorie malnutrition, mild ICD Code: E44.1 - Mild protein-calorie malnutrition Status: Acute (12) Acute respiratory failure with hypoxia and hypercarbia ICD Code: J96.01 - Acute respiratory failure with hypoxia; J96.02 - Acute respiratory failure with hypercapnia Status: Acute Assessment and Plan 03/20: Continue current care, check BMP 03/21: BMP reviewed, and normal limits, continue current care 03/22: No acute issue, no complaint, continue current care 03/23: No acute issue continue ongoing management, placement for ongoing 03/24: Continue efforts for A/P: Mr. Nunez is a 51 year old male who was brought to the hospital as a trauma alert due to head injury after he fell in the bathroom and hit his head. Patient was unresponsive for approximately 15 minutes by the time ambulance services arrived. His mentation waxed and waned with GCS ranging from [address] head indicated subarachnoid hemorrhage, acute. Auditory hallucinations - Psychiatry consulted, recommended Seroquel, no new episodes of hallucinations. Intracranial hemorrhage, status post basilar artery coiling 10/05, Status post [employer] shunt on 11/24/2016 Chronic encephalopathy Hydrocephalus Cortical blindness - Neurology signed off. Neuropsychology following patient ultimately for discharge placement and assistance with recommendations. Per neuropsychology note, ongoing areas of concern include behavioral impulsivity, lack of insight and judgement. - Speech therapy recommends regular diet with thin liquids. Patient is eating well. PEG dc'd 01/08/17. - Continue Seroquel 100mg BID per psychiatry HTN Controlled 03/18. - continue on Norvasc 5mg daily and Labetalol 100mg q8h Acute hypoxic hypercarbic respiratory failure, resolved - Tracheostomy 10/23/16, removed, old trach site healed. - Monitor respiratory status - stable on RA C. difficile colitis, resolved - Completed Flagyl on 10/23 - No diarrhea reported - off Lactinex Constipation The patient is not constipated. - Start lactulose daily and monitor. Hypokalemia, resolved - Continue scheduled KCL 40 meq PO daily. - Follow and replace as needed. DVT prophylaxis: SCDs, YOUSIF azeeme, Lovenox. Ambulation. GI prophylaxis: Protonix. Discharge Planning Difficulty placement employment evaluator/case manager following Problem Qualifiers (1) Hypertension: Maggy Cih MD Mar 24, 2017 16:22
[2017-03-24 20:00] VITALS: BP 122/78; PULSE 95; RESP 18; TEMP 98.6; O2SAT 97
[2017-03-24] MEDS: ENOXAPARIN SODIUM 40 MG/0.4 ML SYRINGE SQ SCH (20:49)
[2017-03-25] VITALS: BP 127/76; PULSE 82; RESP 18; TEMP 98.3; O2SAT 97
[2017-03-25 04:00] VITALS: BP 123/78; PULSE 73; RESP 18; TEMP 97.5; O2SAT 92
[2017-03-25] MEDS: LABETALOL HCL 100 MG TAB PO SCH ×3 (05:02→21:19)
[2017-03-25 08:20] VITALS: BP 123/72; PULSE 77; RESP 20; TEMP 97.4; O2SAT 95
[2017-03-25] MEDS: LACTULOSE SYRUP 20 GM/30 ML CUP PO SCH (08:39)
[2017-03-25] MEDS: PANTOPRAZOLE SOD 40 MG DELAYED RELEASE TAB PO SCH (08:40)
[2017-03-25] MEDS: POTASSIUM CHLORIDE 20 MEQ CONTROLLED RELEASE TAB PO SCH (08:41)
[2017-03-25] MEDS: PRAVASTATIN SOD 40 MG TAB PO SCH (08:41)
[2017-03-25] MEDS: QUEtiapine FUMARATE 100 MG TAB PO SCH ×2 (08:42→12:20)
[2017-03-25] MEDS: DOCUSATE SODIUM 50 MG/SENNA 8.6 MG TAB PO SCH ×2 (08:43→21:19)
[2017-03-25] MEDS: amLODIPine BESYLATE 5 MG TAB PO SCH (08:43)
[2017-03-25 12:08] VITALS: BP 134/79; PULSE 99; RESP 20; TEMP 97.9; O2SAT 96
--- NOTE | 2017-03-25 13:23 | HHI.PR ---
Subjective Remarks Patient sleeping in bed Looks comfortable No acute issues overnight Objective Vitals Vital Signs Date Time Temp Pulse Resp B/P (MAP) Pulse Ox O2 Delivery O2 Flow Rate FiO2 03/25/17 12:08 97.9 99 20 134/79 (97) 96 03/25/17 08:20 97.4 77 20 123/72 (89) 95 03/25/17 04:00 97.5 73 18 123/78 (93) 92 03/25/17 00:00 98.3 82 18 127/76 (93) 97 03/24/17 20:00 98.6 95 18 122/78 (93) 97 03/24/17 16:00 97.6 88 18 117/74 (88) 94 I/O 03/24/17 03/24/17 03/24/17 03/25/17 03/25/17 03/25/17 07:00 15:00 23:00 07:00 15:00 23:00 Intake Total 720 ml Balance 720 ml Intake Oral 720 ml # Voids 5 4 5 # Bowel Movements 1 Result Diagram: 03/21/17 0849 Objective Remarks - - GENERAL: This is a well-nourished, well-developed patient, somnolent SKIN: No rashes, warm and dry HEAD: Atraumatic. Normocephalic. EYES: Pupils equal round and reactive. Extraocular motions intact. No scleral icterus. ENT: Nose without bleeding, or drainage, Airway patent. NECK: Trachea midline. Supple CARDIOVASCULAR: Regular rate and rhythm without murmurs, gallops, or rubs. RESPIRATORY: Fair air entry bilaterally. No wheezes, rales, or rhonchi. GASTROINTESTINAL: Abdomen soft, non-tender, nondistended. Positive bowel sounds MUSCULOSKELETAL: Extremities without clubbing, cyanosis, or edema. Pedal pulses appreciated NEUROLOGICAL: Somnolent. Moves all extremity. Spontaneously 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 ICD Code: I60.8 - Other nontraumatic subarachnoid hemorrhage Status: Acute (2) Hypertension ICD Code: I10 - Essential (primary) hypertension Status: Chronic (3) Major neurocognitive disorder due to vascular disease, without behavioral disturbance, severe ICD Code: F01.50 - Vascular dementia without behavioral disturbance Status: Acute (4) Septic shock ICD Code: A41.9 - Sepsis, unspecified organism; R65.21 - Severe sepsis with septic shock Status: Resolved (5) Hydrocephalus ICD Code: G91.9 - Hydrocephalus, unspecified Status: Acute (6) Intracranial hemorrhage ICD Code: I62.9 - Nontraumatic intracranial hemorrhage, unspecified Status: Acute (7) Major neurocognitive disorder as late effect of traumatic brain injury with behavioral disturbance ICD Code: S06.9X9S - Unspecified intracranial injury with loss of consciousness of unspecified duration, sequela; F02.81 - Dementia in other diseases classified elsewhere with behavioral disturbance Status: Acute (8) Encephalopathy ICD Code: G93.40 - Encephalopathy, unspecified Status: Acute (9) Sepsis ICD Code: A41.9 - Sepsis, unspecified organism Status: Resolved (10) Pneumonia ICD Code: J18.9 - Pneumonia, unspecified organism Status: Acute (11) Protein-calorie malnutrition, mild ICD Code: E44.1 - Mild protein-calorie malnutrition Status: Acute (12) Acute respiratory failure with hypoxia and hypercarbia ICD Code: J96.01 - Acute respiratory failure with hypoxia; J96.02 - Acute respiratory failure with hypercapnia Status: Acute Assessment and Plan 03/20: Continue current care, check BMP 03/21: BMP reviewed, and normal limits, continue current care 03/22: No acute issue, no complaint, continue current care 03/23: No acute issue continue ongoing management, placement for ongoing 03/24: Continue efforts for 03/25: Patient sleeping, did not want to wake up, continue current care A/P: Mr. Nunez is a 51 year old male who was brought to the hospital as a trauma alert due to head injury after he fell in the bathroom and hit his head. Patient was unresponsive for approximately 15 minutes by the time ambulance services arrived. His mentation waxed and waned with GCS ranging from [address] head indicated subarachnoid hemorrhage, acute. Auditory hallucinations - Psychiatry consulted, recommended Seroquel, no new episodes of hallucinations. 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 Neuropsychology following patient ultimately for discharge placement and assistance with recommendations. Per neuropsychology note, ongoing areas of concern include behavioral impulsivity, lack of insight and judgement. - Speech therapy recommends regular diet with thin liquids. Patient is eating well. PEG dc'd 01/08/17. - Continue Seroquel 100mg BID per psychiatry HTN Controlled 03/18. - continue on Norvasc 5mg daily and Labetalol 100mg q8h Acute hypoxic hypercarbic respiratory failure, resolved - Tracheostomy 10/23/16, removed, old trach site healed. - Monitor respiratory status - stable on RA C. difficile colitis, resolved - Completed Flagyl on 10/23 - No diarrhea reported - off Lactinex Constipation The patient is not constipated. - Start lactulose daily and monitor. Hypokalemia, resolved - Continue scheduled KCL 40 meq PO daily. - Follow and replace as needed. DVT prophylaxis: SCDs, YOUSIF han, Lovenox. Ambulation. GI prophylaxis: Protonix. Discharge Planning Difficulty placement foster care case manager following Problem Qualifiers (1) Hypertension: Maggy Chi MD Mar 25, 2017 13:23
[2017-03-25 16:00] VITALS: BP 128/81; PULSE 75; RESP 20; TEMP 98.2; O2SAT 96
[2017-03-25 21:00] VITALS: BP 118/70; PULSE 68; RESP 19; TEMP 98.1; O2SAT 98
[2017-03-25] MEDS: ENOXAPARIN SODIUM 40 MG/0.4 ML SYRINGE SQ SCH (21:20)
[2017-03-26 00:30] VITALS: BP 120/67; PULSE 67; RESP 18; TEMP 98.8; O2SAT 99
[2017-03-26 05:15] VITALS: BP 127/78; PULSE 72; RESP 18; TEMP 97.7; O2SAT 94
[2017-03-26] MEDS: LABETALOL HCL 100 MG TAB PO SCH ×3 (05:26→21:41)
[2017-03-26 08:00] VITALS: BP 134/79; PULSE 64; RESP 17; TEMP 97.7; O2SAT 94
[2017-03-26] MEDS: PANTOPRAZOLE SOD 40 MG DELAYED RELEASE TAB PO SCH (09:15)
[2017-03-26] MEDS: amLODIPine BESYLATE 5 MG TAB PO SCH (09:15)
[2017-03-26] MEDS: PRAVASTATIN SOD 40 MG TAB PO SCH (09:15)
[2017-03-26] MEDS: DOCUSATE SODIUM 50 MG/SENNA 8.6 MG TAB PO SCH ×2 (09:16→21:41)
[2017-03-26] MEDS: POTASSIUM CHLORIDE 20 MEQ CONTROLLED RELEASE TAB PO SCH (09:16)
[2017-03-26] MEDS: QUEtiapine FUMARATE 100 MG TAB PO SCH ×2 (09:16→11:56)
[2017-03-26] MEDS: LACTULOSE SYRUP 20 GM/30 ML CUP PO SCH (09:20)
[2017-03-26 12:00] VITALS: BP 118/75; PULSE 81; RESP 17; TEMP 98; O2SAT 95
--- NOTE | 2017-03-26 13:49 | HHI.PR ---
Subjective Remarks watching TV in bed his answers to qs are non coherent looks comfortable Objective Vitals Vital Signs Date Time Temp Pulse Resp B/P (MAP) Pulse Ox O2 Delivery O2 Flow Rate FiO2 03/26/17 12:00 98.0 81 17 118/75 (89) 95 03/26/17 08:00 97.7 64 17 134/79 (97) 94 03/26/17 05:15 97.7 72 18 127/78 (94) 94 03/26/17 00:30 98.8 67 18 120/67 (84) 99 03/25/17 21:00 98.1 68 19 118/70 (86) 98 03/25/17 16:00 98.2 75 20 128/81 (97) 96 I/O 03/25/17 03/25/17 03/25/17 03/26/17 03/26/17 03/26/17 07:00 15:00 23:00 07:00 15:00 23:00 Intake Total 720 ml 800 ml 1200 ml Balance 720 ml 800 ml 1200 ml Intake Oral 720 ml 800 ml 1200 ml # Voids 5 3 2 4 # Bowel Movements 1 0 0 Objective Remarks - - GENERAL: This is a well-nourished, well-developed patient, somnolent SKIN: No rashes, warm and dry HEAD: Atraumatic. Normocephalic. EYES: Pupils equal round and reactive. Extraocular motions intact. No scleral icterus. ENT: Nose without bleeding, or drainage, Airway patent. NECK: Trachea midline. Supple CARDIOVASCULAR: Regular rate and rhythm without murmurs, gallops, or rubs. RESPIRATORY: Fair air entry bilaterally. No wheezes, rales, or rhonchi. GASTROINTESTINAL: Abdomen soft, non-tender, nondistended. Positive bowel sounds MUSCULOSKELETAL: Extremities without clubbing, cyanosis, or edema. Pedal pulses appreciated NEUROLOGICAL: Somnolent. Moves all extremity. Spontaneously 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 ICD Code: I60.8 - Other nontraumatic subarachnoid hemorrhage Status: Acute (2) Hypertension ICD Code: I10 - Essential (primary) hypertension Status: Chronic (3) Major neurocognitive disorder due to vascular disease, without behavioral disturbance, severe ICD Code: F01.50 - Vascular dementia without behavioral disturbance Status: Acute (4) Septic shock ICD Code: A41.9 - Sepsis, unspecified organism; R65.21 - Severe sepsis with septic shock Status: Resolved (5) Hydrocephalus ICD Code: G91.9 - Hydrocephalus, unspecified Status: Acute (6) Intracranial hemorrhage ICD Code: I62.9 - Nontraumatic intracranial hemorrhage, unspecified Status: Acute (7) Major neurocognitive disorder as late effect of traumatic brain injury with behavioral disturbance ICD Code: S06.9X9S - Unspecified intracranial injury with loss of consciousness of unspecified duration, sequela; F02.81 - Dementia in other diseases classified elsewhere with behavioral disturbance Status: Acute (8) Encephalopathy ICD Code: G93.40 - Encephalopathy, unspecified Status: Acute (9) Sepsis ICD Code: A41.9 - Sepsis, unspecified organism Status: Resolved (10) Pneumonia ICD Code: J18.9 - Pneumonia, unspecified organism Status: Acute (11) Protein-calorie malnutrition, mild ICD Code: E44.1 - Mild protein-calorie malnutrition Status: Acute (12) Acute respiratory failure with hypoxia and hypercarbia ICD Code: J96.01 - Acute respiratory failure with hypoxia; J96.02 - Acute respiratory failure with hypercapnia Status: Acute Assessment and Plan A/P: Mr. Nunez is a 51 year old male who was brought to the hospital as a trauma alert due to head injury after he fell in the bathroom and hit his head. Patient was unresponsive for approximately 15 minutes by the time ambulance services arrived. His mentation waxed and waned with GCS ranging from [address] head indicated subarachnoid hemorrhage, acute. Auditory hallucinations - Psychiatry consulted, recommended Seroquel, no new episodes of hallucinations. 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 Neuropsychology following patient ultimately for discharge placement and assistance with recommendations. Per neuropsychology note, ongoing areas of concern include behavioral impulsivity, lack of insight and judgement. - Speech therapy recommends regular diet with thin liquids. Patient is eating well. PEG dc'd 01/08/17. - Continue Seroquel 100mg BID per psychiatry HTN Controlled 03/18. - continue on Norvasc 5mg daily and Labetalol 100mg q8h Acute hypoxic hypercarbic respiratory failure, resolved - Tracheostomy 10/23/16, removed, old trach site healed. - Monitor respiratory status - stable on RA C. difficile colitis, resolved - Completed Flagyl on 10/23 - No diarrhea reported - off Lactinex Constipation The patient is not constipated. - Start lactulose daily and monitor. Hypokalemia, resolved - Continue scheduled KCL 40 meq PO daily. - Follow and replace as needed. DVT prophylaxis: SCDs, YOUSIF han, Lovenox. Ambulation. GI prophylaxis: Protonix. Discharge Planning Difficulty placement bilingual patient support caseworker following Problem Qualifiers (1) Hypertension: Maggy Chi MD Mar 26, 2017 13:49
[2017-03-26 16:00] VITALS: BP 119/73; PULSE 95; RESP 17; TEMP 98.4; O2SAT 93
[2017-03-26 20:00] VITALS: BP 123/91; PULSE 97; RESP 20; TEMP 97.9; O2SAT 94
[2017-03-26] MEDS: ENOXAPARIN SODIUM 40 MG/0.4 ML SYRINGE SQ SCH (21:41)
[2017-03-27] MEDS: LABETALOL HCL 100 MG TAB PO SCH ×3 (05:23→21:12)
[2017-03-27 05:47] VITALS: BP 136/85; PULSE 74; RESP 20; TEMP 97.5; O2SAT 94
[2017-03-27 08:08] VITALS: BP 130/83; PULSE 77; RESP 20; TEMP 98.1; O2SAT 93
[2017-03-27] MEDS: LACTULOSE SYRUP 20 GM/30 ML CUP PO SCH (08:14)
[2017-03-27] MEDS: QUEtiapine FUMARATE 100 MG TAB PO SCH ×2 (08:14→12:24)
[2017-03-27] MEDS: DOCUSATE SODIUM 50 MG/SENNA 8.6 MG TAB PO SCH ×2 (08:14→21:12)
[2017-03-27] MEDS: PRAVASTATIN SOD 40 MG TAB PO SCH (08:14)
[2017-03-27] MEDS: POTASSIUM CHLORIDE 20 MEQ CONTROLLED RELEASE TAB PO SCH (08:14)
[2017-03-27] MEDS: PANTOPRAZOLE SOD 40 MG DELAYED RELEASE TAB PO SCH (08:14)
[2017-03-27] MEDS: amLODIPine BESYLATE 5 MG TAB PO SCH (08:14)
--- NOTE | 2017-03-27 10:23 | HHI.PR ---
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 Patient seen and examined. Patient denies any complaints. Confused. Answers to questions are nonsensical. Appears comfortable. Discussed with nursing staff, no acute issues overnight. Objective Vitals Vital Signs Date Time Temp Pulse Resp B/P (MAP) Pulse Ox O2 Delivery O2 Flow Rate FiO2 03/27/17 08:08 98.1 77 20 130/83 (99) 93 03/27/17 05:47 97.5 74 20 136/85 (102) 94 03/26/17 20:00 97.9 97 20 123/91 (102) 94 03/26/17 16:00 98.4 95 17 119/73 (88) 93 03/26/17 12:00 98.0 81 17 118/75 (89) 95 I/O 03/26/17 03/26/17 03/26/17 03/27/17 03/27/17 03/27/17 07:00 15:00 23:00 07:00 15:00 23:00 Intake Total 1200 ml 720 ml Balance 1200 ml 720 ml Intake Oral 1200 ml 720 ml # Voids 4 7 3 # Bowel Movements 0 1 0 Imaging Last Impressions Chest X-Ray 02/18/17 0000 Signed Impressions: Service Date/Time: Saturday, February 18, 2017 10:51 - CONCLUSION: Diminished lung volumes. No infiltrate. Tyrese Raymond MD Abdomen X-Ray 02/18/17 0000 Signed Impressions: Service Date/Time: Saturday, February 18, 2017 10:56 - CONCLUSION: Unremarkable abdomen. Tyrese Raymond MD Gall Bladder Ultrasound 02/17/17 0000 Signed Impressions: Service Date/Time: Friday, February 17, 2017 17:45 - CONCLUSION: Mildly enlarged liver and small amount of gallbladder sludge. Tim Hammonds MD Head CT 12/09/16 0000 Signed Impressions: Service Date/Time: Friday, December 09, 2016 17:36 - CONCLUSION: 1. Right ventriculostomy tube remains in place with decrease in ventricular size since November 24. There is some encephalomalacia around the shunt and a probable small infarct in the left basal ganglia. No new hemorrhage or shift. Tip Harris MD Transcranial Doppler Study Complete 10/26/16 0700 Signed Impressions: Service Date/Time: Wednesday, October 26, 2016 08:20 - CONCLUSION: Minimal interval improvement with no evidence for vasospasm. Christian Song MD FACR Neck CTA 10/19/16 0000 Signed Impressions: Service Date/Time: Wednesday, October 19, 2016 14:19 - CONCLUSION: Negative for dissection or significant stenosis. Christian Song MD FACR Head CTA 10/19/16 0000 Signed Impressions: Service Date/Time: Wednesday, October 19, 2016 14:19 - CONCLUSION: 1. Interval development of significant vasospasm in the left MCA and SRI territories. 2. Mild vasospasm in the basilar artery.. Gume Mckeon MD Cerebral Arteriogram 10/19/16 0000 Signed Impressions: Service Date/Time: Wednesday, October 19, 2016 16:06 - CONCLUSION: 1. Vasospasm in the left MCA and SRI territories 2. Spasmolytic infusion, left internal carotid artery as above.. 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 Gume Mckeon MD Pelvis X-Ray 10/05/16109 Signed Impressions: Service Date/Time: Wednesday, October 05, 2016 01:22 - CONCLUSION: Unremarkable examination of the pelvis. Ruben Aucña Jr., MD Chest CT 10/05/16109 Signed Impressions: Service Date/Time: Wednesday, October 05, 2016 01:46 - CONCLUSION: 1. No acute intrathoracic abnormality. 2. Bibasilar atelectasis. 3. Cardiomegaly. 4. Prior granulomatous disease. Ruben Acuña Jr., MD Cervical Spine CT 10/05/16109 Signed Impressions: Service Date/Time: Wednesday, October 05, 2016 01:40 - CONCLUSION: 1. No fracture or dislocation. 2. Multilevel degenerative changes. Ruben Acuña Jr., MD Abdomen/Pelvis CT 10/05/16109 Signed Impressions: Service Date/Time: Wednesday, October 05, 2016 01:46 - CONCLUSION: 1. No acute trauma. 2. Rounded area of decreased density involving the pancreatic head. I cannot completely exclude pancreatic head mass. At some point MRI of the pancreas is suggested to further evaluate. 3. Focal area of poor enhancement involving the left kidney. This may relate to an area of parenchymal scarring. I cannot completely exclude a mass. This can be further assessed with MRI as well. Ruben Acuña Jr., MD Objective Remarks GENERAL: Well-nourished, well-developed male patient, in no apparent distress. Awake and alert. Lying in hospital bed watching TV. Appears comfortable. SKIN: No rash. Warm and dry. HEENT: Normocephalic. Extraocular motions intact. No scleral icterus. No injection or drainage. Nose without bleeding. MMM. Airway patent. NECK: Trachea midline. Supple. CARDIOVASCULAR: RRR. No murmur appreciated. RESPIRATORY: Nonlabored. Clear to auscultation. Breath sounds equal bilaterally. No wheezes, rales, or rhonchi. GASTROINTESTINAL: Abdomen soft, nondistended and nontender. BS x 4. MUSCULOSKELETAL: Extremities without clubbing, cyanosis, or edema. NEUROLOGICAL: Awake and alert. Oriented to self only. Moves all 4 extremities spontaneously. Motor and sensory function grossly intact. Normal speech. Procedures 10/05/16 right frontal twist drill for ventriculostomy placement 10/20/16 arterial line placement 10/23/16 bedside percutaneous tracheostomy under direct bronchoscopic visualization 10/24/16 PEG tube placement at bedside Medications and IVs Current Medications Medications (Trade) Dose Ordered Sig/Nava Route Start Time Stop Time Status Last Admin (Tylenol) 650 mg Q6H PRN PO 10/05/16 02:45 03/07/17 21:12 (Zofran Inj) 4 mg Q6H PRN IV 10/05/16 02:45 11/27/16 23:26 Miscellaneous Information 1 Q361D XX 10/05/16 02:45 10/05/16 02:45 (Pravachol) 40 mg DAILY PO 10/05/16 09:00 03/27/17 08:14 (Lovenox Inj) 40 mg Q24H SQ 10/23/16 21:00 Future hold 03/26/17 21:41 (Trandate) 100 mg Q8H PO 11/03/16 20:00 03/27/17 05:23 (Norvasc) 5 mg DAILY PO 11/04/16 09:00 03/27/17 08:14 (Imodium) 2 mg UNSCH PRN PO 11/09/16 09:45 11/29/16 12:57 (Lomotil Tab) 1 tab Q6H PRN PO 11/09/16 09:45 (Lactulose Liq) 30 ml QID PRN PO 12/09/16 13:45 (Protonix) 40 mg DAILY PO 12/16/16 09:00 03/27/17 08:14 (Benadryl) 50 mg Q6H PRN PO 12/20/16 17:45 03/09/17 20:11 (Colace) 100 mg Q12H PRN PO 02/12/17 00:15 (Duoneb Neb) 1 ampule Q4HR NEB PRN INH 02/12/17 12:00 (KCl) 40 meq DAILY PO 02/13/17 09:00 03/27/17 08:14 (Tonie-Colace) 1 tab BID PO 02/18/17 09:30 03/26/17 21:41 (SEROquel) 200 mg BID@09,12 PO 02/24/17 09:00 03/27/17 08:14 (Lactulose Liq) 30 ml DAILY PO 03/16/17 10:45 03/27/17 08:14 A/P Problem List: (1) 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 ICD Code: I60.8 - Other nontraumatic subarachnoid hemorrhage Status: Acute (2) Hypertension ICD Code: I10 - Essential (primary) hypertension Status: Chronic (3) Major neurocognitive disorder due to vascular disease, without behavioral disturbance, severe ICD Code: F01.50 - Vascular dementia without behavioral disturbance Status: Acute (4) Septic shock ICD Code: A41.9 - Sepsis, unspecified organism; R65.21 - Severe sepsis with septic shock Status: Resolved (5) Hydrocephalus ICD Code: G91.9 - Hydrocephalus, unspecified Status: Acute (6) Intracranial hemorrhage ICD Code: I62.9 - Nontraumatic intracranial hemorrhage, unspecified Status: Acute (7) Major neurocognitive disorder as late effect of traumatic brain injury with behavioral disturbance ICD Code: S06.9X9S - Unspecified intracranial injury with loss of consciousness of unspecified duration, sequela; F02.81 - Dementia in other diseases classified elsewhere with behavioral disturbance Status: Acute (8) Encephalopathy ICD Code: G93.40 - Encephalopathy, unspecified Status: Acute (9) Sepsis ICD Code: A41.9 - Sepsis, unspecified organism Status: Resolved (10) Pneumonia ICD Code: J18.9 - Pneumonia, unspecified organism Status: Acute (11) Protein-calorie malnutrition, mild ICD Code: E44.1 - Mild protein-calorie malnutrition Status: Acute (12) Acute respiratory failure with hypoxia and hypercarbia ICD Code: J96.01 - Acute respiratory failure with hypoxia; J96.02 - Acute respiratory failure with hypercapnia Status: Acute Assessment and Plan Mr. Nunez is a 51 year old male who was brought to the hospital as a trauma alert due to head injury after he fell in the bathroom and hit his head. Patient was unresponsive for approximately 15 minutes by the time ambulance services arrived. His mentation waxed and waned with GCS ranging from [address] head indicated subarachnoid hemorrhage, acute. Auditory hallucinations - Psychiatry consulted, appreciate their assistance - Continues to have hallucinations - recent episode of increased psychosis likely due to not receiving his evening dose of Seroquel. No recurrence taking Seroquel as prescribed. - Continue to monitor with ADLs Intracranial hemorrhage, status post basilar artery coiling 10/05, Status post [employer] shunt on 11/24/2016 Chronic encephalopathy Hydrocephalus Cortical blindness - Neurology signed off. Neuropsychology following patient ultimately for discharge placement and assistance with recommendations. Per neuropsych note, ongoing areas of concern include behavioral impulsivity, lack of insight and judgement. - Speech therapy recommends regular diet with thin liquids. Patient is eating well. PEG dc'd 01/08/17. - Continue Seroquel 100mg BID per psychiatry HTN - controlled - continue on Norvasc 5mg daily and Labetalol 100mg q8h Acute hypoxic hypercarbic respiratory failure, resolved - Tracheostomy 10/23/16, removed, old trach site healed. - Monitor respiratory status - 95% on RA C. difficile colitis, resolved - Completed Flagyl on 10/23 - No diarrhea reported - off Lactinex Hypokalemia, resolved - Continue scheduled KCL 40 meq PO daily. - Follow and replace as needed. - potassium levels stable - monitor intermittently DVT prophylaxis: SCDs, YOUSIF hose, Lovenox. Ambulation. GI prophylaxis: Protonix. Discussed with patient, nursing staff and Dr. Mclain Discharge Planning Discharge planning ongoing. continues to address funding and placement issue. Pending SSI and medicaid. Problem Qualifiers (1) Hypertension: Debra Krause Mar 27, 2017 10:23
[2017-03-27 12:16] VITALS: BP 126/77; PULSE 88; RESP 20; TEMP 98; O2SAT 94
[2017-03-27 16:07] VITALS: BP 128/72; PULSE 87; RESP 20; TEMP 98.2; O2SAT 95
[2017-03-27 20:09] VITALS: BP 123/84; PULSE 85; RESP 20; TEMP 98; O2SAT 94
[2017-03-27] MEDS: ENOXAPARIN SODIUM 40 MG/0.4 ML SYRINGE SQ SCH (21:12)
[2017-03-28 00:29] VITALS: BP 127/78; PULSE 95; RESP 20; TEMP 97.3; O2SAT 95
[2017-03-28] MEDS: LABETALOL HCL 100 MG TAB PO SCH ×3 (04:47→21:38)
[2017-03-28 05:03] VITALS: BP 124/66; PULSE 79; RESP 19; TEMP 97.6; O2SAT 95
[2017-03-28 07:00] VITALS: BP 127/88; PULSE 84; RESP 20; TEMP 98.2; O2SAT 94
[2017-03-28] MEDS: PRAVASTATIN SOD 40 MG TAB PO SCH (08:34)
[2017-03-28] MEDS: LACTULOSE SYRUP 20 GM/30 ML CUP PO SCH (08:34)
[2017-03-28] MEDS: PANTOPRAZOLE SOD 40 MG DELAYED RELEASE TAB PO SCH (08:34)
[2017-03-28] MEDS: QUEtiapine FUMARATE 100 MG TAB PO SCH ×2 (08:34→11:56)
[2017-03-28] MEDS: amLODIPine BESYLATE 5 MG TAB PO SCH (08:35)
[2017-03-28] MEDS: DOCUSATE SODIUM 50 MG/SENNA 8.6 MG TAB PO SCH ×2 (08:35→21:38)
[2017-03-28] MEDS: POTASSIUM CHLORIDE 20 MEQ CONTROLLED RELEASE TAB PO SCH (08:35)
--- NOTE | 2017-03-28 09:32 | HHI.PR ---
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 Patient seen and examined. Lying in bed comfortably, in no apparent distress. Pleasantly confused. No report of any acute events overnight. Tolerating PO intake well. Denies any recent fever, chills, cough, shortness of breath, ab pain, nausea, vomiting, diarrhea or dysuria. Objective Vitals Vital Signs Date Time Temp Pulse Resp B/P (MAP) Pulse Ox O2 Delivery O2 Flow Rate FiO2 03/28/17 07:00 98.2 84 20 127/88 (101) 94 03/28/17 05:03 97.6 79 19 124/66 (85) 95 03/28/17 00:29 97.3 95 20 127/78 (94) 95 03/27/17 20:09 98.0 85 20 123/84 (97) 94 03/27/17 16:07 98.2 87 20 128/72 (90) 95 03/27/17 12:16 98.0 88 20 126/77 (93) 94 I/O 03/27/17 03/27/17 03/27/17 03/28/17 03/28/17 03/28/17 07:00 15:00 23:00 07:00 15:00 23:00 Intake Total 960 ml 240 ml Output Total 1 ml Balance 960 ml 239 ml Intake Oral 960 ml 240 ml Output Urine Total 1 ml # Voids 3 4 3 # Bowel Movements 0 1 Imaging Last Impressions Chest X-Ray 02/18/17 0000 Signed Impressions: Service Date/Time: Saturday, February 18, 2017 10:51 - CONCLUSION: Diminished lung volumes. No infiltrate. Tyrese Raymond MD Abdomen X-Ray 02/18/17 0000 Signed Impressions: Service Date/Time: Saturday, February 18, 2017 10:56 - CONCLUSION: Unremarkable abdomen. Tyrese Raymond MD Gall Bladder Ultrasound 02/17/17 0000 Signed Impressions: Service Date/Time: Friday, February 17, 2017 17:45 - CONCLUSION: Mildly enlarged liver and small amount of gallbladder sludge. Tim Hammonds MD Head CT 12/09/16 0000 Signed Impressions: Service Date/Time: Friday, December 09, 2016 17:36 - CONCLUSION: 1. Right ventriculostomy tube remains in place with decrease in ventricular size since November 24. There is some encephalomalacia around the shunt and a probable small infarct in the left basal ganglia. No new hemorrhage or shift. Tip Harris MD Transcranial Doppler Study Complete 10/26/16 0700 Signed Impressions: Service Date/Time: Wednesday, October 26, 2016 08:20 - CONCLUSION: Minimal interval improvement with no evidence for vasospasm. Christian Song MD FACR Neck CTA 10/19/16 0000 Signed Impressions: Service Date/Time: Wednesday, October 19, 2016 14:19 - CONCLUSION: Negative for dissection or significant stenosis. Christian Song MD FACR Head CTA 10/19/16 0000 Signed Impressions: Service Date/Time: Wednesday, October 19, 2016 14:19 - CONCLUSION: 1. Interval development of significant vasospasm in the left MCA and SRI territories. 2. Mild vasospasm in the basilar artery.. Gume Mckeon MD Cerebral Arteriogram 10/19/16 0000 Signed Impressions: Service Date/Time: Wednesday, October 19, 2016 16:06 - CONCLUSION: 1. Vasospasm in the left MCA and SRI territories 2. Spasmolytic infusion, left internal carotid artery as above.. 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 Gume Mckeon MD Pelvis X-Ray 10/05/16109 Signed Impressions: Service Date/Time: Wednesday, October 05, 2016 01:22 - CONCLUSION: Unremarkable examination of the pelvis. Ruben Acuña Jr., MD Chest CT 10/05/16109 Signed Impressions: Service Date/Time: Wednesday, October 05, 2016 01:46 - CONCLUSION: 1. No acute intrathoracic abnormality. 2. Bibasilar atelectasis. 3. Cardiomegaly. 4. Prior granulomatous disease. Ruben Acuña Jr., MD Cervical Spine CT 10/05/16109 Signed Impressions: Service Date/Time: Wednesday, October 05, 2016 01:40 - CONCLUSION: 1. No fracture or dislocation. 2. Multilevel degenerative changes. Ruben Acuña Jr., MD Abdomen/Pelvis CT 10/05/16109 Signed Impressions: Service Date/Time: Wednesday, October 05, 2016 01:46 - CONCLUSION: 1. No acute trauma. 2. Rounded area of decreased density involving the pancreatic head. I cannot completely exclude pancreatic head mass. At some point MRI of the pancreas is suggested to further evaluate. 3. Focal area of poor enhancement involving the left kidney. This may relate to an area of parenchymal scarring. I cannot completely exclude a mass. This can be further assessed with MRI as well. Ruben Acuña Jr., MD Objective Remarks GENERAL: Well-nourished, well-developed male patient, in no apparent distress. Awake and alert. Lying in hospital bed watching TV. Appears comfortable. SKIN: No rash. Warm and dry. HEENT: Normocephalic. Extraocular motions intact. No scleral icterus. No injection or drainage. Nose without bleeding. MMM. Airway patent. NECK: Trachea midline. Supple. CARDIOVASCULAR: RRR. No murmur appreciated. RESPIRATORY: Nonlabored. Clear to auscultation. Breath sounds equal bilaterally. No wheezes, rales, or rhonchi. GASTROINTESTINAL: Abdomen soft, nondistended and nontender. BS x 4. MUSCULOSKELETAL: Extremities without clubbing, cyanosis, or edema. NEUROLOGICAL: Awake and alert. Oriented to self only. Moves all 4 extremities spontaneously. Motor and sensory function grossly intact. Normal speech. 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 ICD Code: I60.8 - Other nontraumatic subarachnoid hemorrhage Status: Acute (2) Hypertension ICD Code: I10 - Essential (primary) hypertension Status: Chronic (3) Major neurocognitive disorder due to vascular disease, without behavioral disturbance, severe ICD Code: F01.50 - Vascular dementia without behavioral disturbance Status: Acute (4) Septic shock ICD Code: A41.9 - Sepsis, unspecified organism; R65.21 - Severe sepsis with septic shock Status: Resolved (5) Hydrocephalus ICD Code: G91.9 - Hydrocephalus, unspecified Status: Acute (6) Intracranial hemorrhage ICD Code: I62.9 - Nontraumatic intracranial hemorrhage, unspecified Status: Acute (7) Major neurocognitive disorder as late effect of traumatic brain injury with behavioral disturbance ICD Code: S06.9X9S - Unspecified intracranial injury with loss of consciousness of unspecified duration, sequela; F02.81 - Dementia in other diseases classified elsewhere with behavioral disturbance Status: Acute (8) Encephalopathy ICD Code: G93.40 - Encephalopathy, unspecified Status: Acute (9) Sepsis ICD Code: A41.9 - Sepsis, unspecified organism Status: Resolved (10) Pneumonia ICD Code: J18.9 - Pneumonia, unspecified organism Status: Acute (11) Protein-calorie malnutrition, mild ICD Code: E44.1 - Mild protein-calorie malnutrition Status: Acute (12) Acute respiratory failure with hypoxia and hypercarbia ICD Code: J96.01 - Acute respiratory failure with hypoxia; J96.02 - Acute respiratory failure with hypercapnia Status: Acute Assessment and Plan Mr. Nunez is a 51 year old male who was brought to the hospital as a trauma alert due to head injury after he fell in the bathroom and hit his head. Patient was unresponsive for approximately 15 minutes by the time ambulance services arrived. His mentation waxed and waned with GCS ranging from [address] head indicated subarachnoid hemorrhage, acute. Auditory hallucinations - Psychiatry consulted, appreciate their assistance - Continues to have hallucinations - recent episode of increased psychosis likely due to not receiving his evening dose of Seroquel. No recurrence taking Seroquel as prescribed. - Continue to monitor with ADLs Intracranial hemorrhage, status post basilar artery coiling 10/05, Status post [employer] shunt on 11/24/2016 Chronic encephalopathy Hydrocephalus Cortical blindness - Neurology signed off. Neuropsychology following patient ultimately for discharge placement and assistance with recommendations. Per neuropsych note, ongoing areas of concern include behavioral impulsivity, lack of insight and judgement. - Speech therapy recommends regular diet with thin liquids. Patient is eating well. PEG dc'd 01/08/17. - Continue Seroquel 200mg BID per psychiatry HTN - controlled - continue on Norvasc 5mg daily and Labetalol 100mg q8h, Norvasc 5 mg PO daily. Acute hypoxic hypercarbic respiratory failure, resolved - Tracheostomy 10/23/16, removed, old trach site healed. - Monitor respiratory status - 95% on RA C. difficile colitis, resolved - Completed Flagyl on 10/23 - No diarrhea reported - off Lactinex Hypokalemia, resolved - Continue scheduled KCL 40 meq PO daily. - Follow and replace as needed. - potassium levels stable - monitor intermittently Hyperlipidemia: Pravastatin 40 mg PO daily. DVT prophylaxis: SCDs, YOUSIF han Lovenox. Ambulation. GI prophylaxis: Protonix. Discharge Planning Discharge planning ongoing. CM continues to address funding and placement issue. Pending SSI and medicaid. Problem Qualifiers (1) Hypertension: Dariela Del Cid Mar 28, 2017 09:32
[2017-03-28 20:00] VITALS: BP 150/89; PULSE 92; RESP 20; TEMP 98.5; O2SAT 95
[2017-03-28] MEDS: ENOXAPARIN SODIUM 40 MG/0.4 ML SYRINGE SQ SCH (21:38)
[2017-03-29] VITALS: BP 126/81; PULSE 81; RESP 20; TEMP 97.4; O2SAT 93
[2017-03-29] MEDS: LABETALOL HCL 100 MG TAB PO SCH ×3 (04:00→20:56)
[2017-03-29 04:18] VITALS: BP 102/55; PULSE 73; RESP 19; TEMP 97.5; O2SAT 96
[2017-03-29 08:05] VITALS: BP 128/78; PULSE 77; RESP 20; TEMP 97.9; O2SAT 97
--- NOTE | 2017-03-29 08:37 | HHI.PR ---
Subjective Remarks Follow up on patient with TBI, ICH, chronic encephalopathy. Patient seen and examined. Lying in bed awake, using bedside avatar. Pleasantly confused, states he was awoken today by a bad dream. Denies any new acute complaints. Ambulating well. Denies any abdominal pain, nausea or vomiting. Still complains of visual field loss. No new changes. Objective Vitals Vital Signs Date Time Temp Pulse Resp B/P (MAP) Pulse Ox O2 Delivery O2 Flow Rate FiO2 03/29/17 08:05 97.9 77 20 128/78 (95) 97 03/29/17 04:18 97.5 73 19 102/55 (71) 96 03/29/17 00:00 97.4 81 20 126/81 (96) 93 03/28/17 20:00 98.5 92 20 150/89 (109) 95 I/O 03/28/17 03/28/17 03/28/17 03/29/17 03/29/17 03/29/17 07:00 15:00 23:00 07:00 15:00 23:00 Intake Total 240 ml 240 ml Output Total 1 ml Balance 239 ml 240 ml Intake Oral 240 ml 240 ml Output Urine Total 1 ml # Voids 3 2 2 Imaging Last Impressions Chest X-Ray 02/18/17 0000 Signed Impressions: Service Date/Time: Saturday, February 18, 2017 10:51 - CONCLUSION: Diminished lung volumes. No infiltrate. Tyrese Raymond MD Abdomen X-Ray 02/18/17 0000 Signed Impressions: Service Date/Time: Saturday, February 18, 2017 10:56 - CONCLUSION: Unremarkable abdomen. Tyrese Raymond MD Gall Bladder Ultrasound 02/17/17 0000 Signed Impressions: Service Date/Time: Friday, February 17, 2017 17:45 - CONCLUSION: Mildly enlarged liver and small amount of gallbladder sludge. Tim Hammonds MD Head CT 12/09/16 0000 Signed Impressions: Service Date/Time: Friday, December 09, 2016 17:36 - CONCLUSION: 1. Right ventriculostomy tube remains in place with decrease in ventricular size since November 24. There is some encephalomalacia around the shunt and a probable small infarct in the left basal ganglia. No new hemorrhage or shift. Tip Harris MD Transcranial Doppler Study Complete 10/26/16 0700 Signed Impressions: Service Date/Time: Wednesday, October 26, 2016 08:20 - CONCLUSION: Minimal interval improvement with no evidence for vasospasm. Christian Song MD FACR Neck CTA 10/19/16 0000 Signed Impressions: Service Date/Time: Wednesday, October 19, 2016 14:19 - CONCLUSION: Negative for dissection or significant stenosis. Christian Song MD FACR Head CTA 10/19/16 Signed Impressions: Service Date/Time: Wednesday, October 19, 2016 14:19 - CONCLUSION: 1. Interval development of significant vasospasm in the left MCA and SRI territories. 2. Mild vasospasm in the basilar artery.. Gume Mckeon MD Cerebral Arteriogram 10/19/16 Signed Impressions: Service Date/Time: Wednesday, October 19, 2016 16:06 - CONCLUSION: 1. Vasospasm in the left MCA and SRI territories 2. Spasmolytic infusion, left internal carotid artery as above.. 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 Gume Mckeon MD Pelvis X-Ray 10/05/16109 Signed Impressions: Service Date/Time: Wednesday, October 05, 2016 01:22 - CONCLUSION: Unremarkable examination of the pelvis. Ruben Acuña Jr., MD Chest CT 10/05/16109 Signed Impressions: Service Date/Time: Wednesday, October 05, 2016 01:46 - CONCLUSION: 1. No acute intrathoracic abnormality. 2. Bibasilar atelectasis. 3. Cardiomegaly. 4. Prior granulomatous disease. Ruben Acuña Jr., MD Cervical Spine CT 10/05/16109 Signed Impressions: Service Date/Time: Wednesday, October 05, 2016 01:40 - CONCLUSION: 1. No fracture or dislocation. 2. Multilevel degenerative changes. Ruben Acuña Jr., MD Abdomen/Pelvis CT 10/05/16109 Signed Impressions: Service Date/Time: Wednesday, October 05, 2016 01:46 - CONCLUSION: 1. No acute trauma. 2. Rounded area of decreased density involving the pancreatic head. I cannot completely exclude pancreatic head mass. At some point MRI of the pancreas is suggested to further evaluate. 3. Focal area of poor enhancement involving the left kidney. This may relate to an area of parenchymal scarring. I cannot completely exclude a mass. This can be further assessed with MRI as well. Ruben Acuña Jr., MD Objective Remarks GENERAL: Well-nourished, well-developed male patient, in no apparent distress. Awake and alert. Lying in hospital bed watching TV. Appears comfortable. SKIN: No rash. Warm and dry. HEENT: Normocephalic. Extraocular motions intact. No scleral icterus. No injection or drainage. Nose without bleeding. MMM. Airway patent. NECK: Trachea midline. Supple. CARDIOVASCULAR: RRR. No murmur appreciated. RESPIRATORY: Nonlabored. Clear to auscultation. Breath sounds equal bilaterally. No wheezes, rales, or rhonchi. GASTROINTESTINAL: Abdomen soft, nondistended and nontender. BS x 4. MUSCULOSKELETAL: Extremities without clubbing, cyanosis, or edema. NEUROLOGICAL: Awake and alert. Oriented to self only. Moves all 4 extremities spontaneously. Motor and sensory function grossly intact. Normal speech. 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 ICD Code: I60.8 - Other nontraumatic subarachnoid hemorrhage Status: Acute (2) Hypertension ICD Code: I10 - Essential (primary) hypertension Status: Chronic (3) Major neurocognitive disorder due to vascular disease, without behavioral disturbance, severe ICD Code: F01.50 - Vascular dementia without behavioral disturbance Status: Acute (4) Intracranial hemorrhage ICD Code: I62.9 - Nontraumatic intracranial hemorrhage, unspecified Status: Resolved (5) Major neurocognitive disorder as late effect of traumatic brain injury with behavioral disturbance ICD Code: S06.9X9S - Unspecified intracranial injury with loss of consciousness of unspecified duration, sequela; F02.81 - Dementia in other diseases classified elsewhere with behavioral disturbance Status: Acute (6) Encephalopathy ICD Code: G93.40 - Encephalopathy, unspecified Status: Acute (7) Acute respiratory failure with hypoxia and hypercarbia ICD Code: J96.01 - Acute respiratory failure with hypoxia; J96.02 - Acute respiratory failure with hypercapnia Status: Acute Assessment and Plan Mr. Nunez is a 51 year old male who was brought to the hospital as a trauma alert due to head injury after he fell in the bathroom and hit his head. Patient was unresponsive for approximately 15 minutes by the time ambulance services arrived. His mentation waxed and waned with GCS ranging from [address] head indicated subarachnoid hemorrhage, acute. Auditory hallucinations - Psychiatry consulted, appreciate their assistance - Continues to have hallucinations - recent episode of increased psychosis likely due to not receiving his evening dose of Seroquel. No recurrence taking Seroquel as prescribed. 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 Neuropsychology following patient ultimately for discharge placement and assistance with recommendations. Per neuropsych note, ongoing areas of concern include behavioral impulsivity, lack of insight and judgement. - Speech therapy recommends regular diet with thin liquids. Patient is eating well. PEG dc'd 01/08/17. - Continue Seroquel 200mg BID per psychiatry HTN - controlled - continue on Norvasc 5mg daily and Labetalol 100mg q8h, Norvasc 5 mg PO daily. Acute hypoxic hypercarbic respiratory failure, resolved - Tracheostomy 10/23/16, removed, old trach site healed. - Monitor respiratory status - 95% on RA C. difficile colitis, resolved - Completed Flagyl on 10/23 - No diarrhea reported - off Lactinex Hypokalemia, resolved - Continue scheduled KCL 40 meq PO daily. - Follow and replace as needed. - potassium levels stable - monitor intermittently - Checking CMP and CBC today. Follow. Hyperlipidemia: Pravastatin 40 mg PO daily. DVT prophylaxis: SCDs, YOUSIF hose, Lovenox. Ambulation. GI prophylaxis: Protonix. Discharge Planning Discharge planning ongoing. continues to address funding and placement issue. Pending SSI and medicaid. Problem Qualifiers (1) Hypertension: Dariela Del Cid Mar 29, 2017 08:37
[2017-03-29] MEDS: QUEtiapine FUMARATE 100 MG TAB PO SCH ×2 (09:26→12:06)
[2017-03-29] MEDS: amLODIPine BESYLATE 5 MG TAB PO SCH (09:26)
[2017-03-29] MEDS: DOCUSATE SODIUM 50 MG/SENNA 8.6 MG TAB PO SCH ×2 (09:27→20:56)
[2017-03-29] MEDS: PANTOPRAZOLE SOD 40 MG DELAYED RELEASE TAB PO SCH (09:27)
[2017-03-29] MEDS: PRAVASTATIN SOD 40 MG TAB PO SCH (09:27)
[2017-03-29] MEDS: POTASSIUM CHLORIDE 20 MEQ CONTROLLED RELEASE TAB PO SCH (09:27)
[2017-03-29] MEDS: LACTULOSE SYRUP 20 GM/30 ML CUP PO SCH (09:27)
[2017-03-29 12:04] VITALS: BP 131/69; PULSE 91; RESP 20; TEMP 97.5; O2SAT 95
[2017-03-29 12:06] LABS: BASOPHIL # 0.1 TH/MM3 (0-0.2); BASOPHIL % 1.2 % (0.0-2.0); EOSINOPHIL # 0.2 TH/MM3 (0-0.4); EOSINOPHIL % 2.9 % (0.0-4.0); HEMATOCRIT 41.4 % (39.0-51.0); HEMOGLOBIN 13.9 GM/DL (13.0-17.0); LYMPHOCYTE # 1.4 TH/MM3 (1.0-4.8); MEAN CELL VOLUME 87.8 FL (80.0-100.0); MEAN CORPUSCULAR HEMOGLOBIN 29.6 PG (27.0-34.0); MEAN CORPUSCULAR HGB CONC 33.7 % (32.0-36.0); MEAN PLATELET VOLUME 9.2 FL (7.0-11.0); MONO % 9.3 % (0.0-8.0); MONOCYTE # 0.6 TH/MM3 (0-0.9); NEUT % 63.6 % (16.0-70.0); PLATELET COUNT 183 TH/MM3 (150-450); RED BLOOD COUNT 4.71 MIL/MM3 (4.50-5.90); RED CELL DISTRIBUTION WIDTH 14.3 % (11.6-17.2); WHITE BLOOD COUNT 6.2 TH/MM3 (4.0-11.0)
[2017-03-29 12:28] LABS: CALCIUM 8.9 MG/DL (8.5-10.1); CREATININE 1.27 MG/DL (0.60-1.30)
[2017-03-29 15:52] VITALS: BP 122/75; PULSE 95; RESP 20; TEMP 98.3; O2SAT 96
[2017-03-29 20:11] VITALS: BP 144/82; PULSE 118; RESP 20; TEMP 97.6; O2SAT 93
[2017-03-29] MEDS: ENOXAPARIN SODIUM 40 MG/0.4 ML SYRINGE SQ SCH (20:56)
[2017-03-30 00:29] VITALS: BP 116/75; PULSE 90; RESP 17; TEMP 98.5; O2SAT 98
[2017-03-30] MEDS: LABETALOL HCL 100 MG TAB PO SCH ×3 (04:21→20:00)
[2017-03-30 05:05] VITALS: BP 122/73; PULSE 80; RESP 17; TEMP 98.2; O2SAT 98
[2017-03-30 07:57] VITALS: BP 133/84; PULSE 82; RESP 20; TEMP 97.4; O2SAT 95
[2017-03-30] MEDS: QUEtiapine FUMARATE 100 MG TAB PO SCH ×2 (09:41→12:50)
[2017-03-30] MEDS: PANTOPRAZOLE SOD 40 MG DELAYED RELEASE TAB PO SCH (09:42)
[2017-03-30] MEDS: PRAVASTATIN SOD 40 MG TAB PO SCH (09:42)
[2017-03-30] MEDS: LACTULOSE SYRUP 20 GM/30 ML CUP PO SCH (09:42)
[2017-03-30] MEDS: DOCUSATE SODIUM 50 MG/SENNA 8.6 MG TAB PO SCH ×2 (09:42→21:00)
[2017-03-30] MEDS: amLODIPine BESYLATE 5 MG TAB PO SCH (09:42)
[2017-03-30] MEDS: POTASSIUM CHLORIDE 20 MEQ CONTROLLED RELEASE TAB PO SCH (09:42)
[2017-03-30 12:02] VITALS: BP 134/86; PULSE 88; RESP 20; TEMP 98.6; O2SAT 97
--- NOTE | 2017-03-30 14:33 | HHI.PR ---
Subjective Remarks Follow-up visit TBI, ICH, chronic encephalopathy. Patient seen and examined today. Laying in bed. Confuse but responds to commands. States that he feels "feathery." S2 described that feeling, patient states that it's like having pinprick sharp pain but it goes away and feels like a feather. Otherwise, denies SOB/ dyspnea. Denies chest pain, palpitations, headaches, dizziness. Denies fevers, n/v/d. Objective Vitals Vital Signs Date Time Temp Pulse Resp B/P (MAP) Pulse Ox O2 Delivery O2 Flow Rate FiO2 03/30/17 12:02 98.6 88 20 134/86 (102) 97 03/30/17 07:57 97.4 82 20 133/84 (100) 95 03/30/17 05:05 98.2 80 17 122/73 (89) 98 03/30/17 00:29 98.5 90 17 116/75 (89) 98 03/29/17 20:11 97.6 118 20 144/82 (102) 93 03/29/17 15:52 98.3 95 20 122/75 (91) 96 I/O 03/29/17 03/29/17 03/29/17 03/30/17 03/30/17 03/30/17 07:00 15:00 23:00 07:00 15:00 23:00 Intake Total 1440 ml 240 ml 920 ml Balance 1440 ml 240 ml 920 ml Intake Oral 1440 ml 240 ml 920 ml # Voids 2 3 3 3 # Bowel Movements 2 1 Result Diagram: 03/29/17 1100 03/29/17 1100 Imaging Last Impressions Chest X-Ray 02/18/17 0000 Signed Impressions: Service Date/Time: Saturday, February 18, 2017 10:51 - CONCLUSION: Diminished lung volumes. No infiltrate. Tyrese Raymond MD Abdomen X-Ray 02/18/17 0000 Signed Impressions: Service Date/Time: Saturday, February 18, 2017 10:56 - CONCLUSION: Unremarkable abdomen. Tyrese Raymond MD Gall Bladder Ultrasound 02/17/17 0000 Signed Impressions: Service Date/Time: Friday, February 17, 2017 17:45 - CONCLUSION: Mildly enlarged liver and small amount of gallbladder sludge. Tim Hammonds MD Head CT 12/09/16 0000 Signed Impressions: Service Date/Time: Friday, December 09, 2016 17:36 - CONCLUSION: 1. Right ventriculostomy tube remains in place with decrease in ventricular size since November 24. There is some encephalomalacia around the shunt and a probable small infarct in the left basal ganglia. No new hemorrhage or shift. Tip Harris MD Transcranial Doppler Study Complete 10/26/16 0700 Signed Impressions: Service Date/Time: Wednesday, October 26, 2016 08:20 - CONCLUSION: Minimal interval improvement with no evidence for vasospasm. Christian Song MD FACR Neck CTA 10/19/16 0000 Signed Impressions: Service Date/Time: Wednesday, October 19, 2016 14:19 - CONCLUSION: Negative for dissection or significant stenosis. Christian Song MD FACR Head CTA 10/19/16 0000 Signed Impressions: Service Date/Time: Wednesday, October 19, 2016 14:19 - CONCLUSION: 1. Interval development of significant vasospasm in the left MCA and SRI territories. 2. Mild vasospasm in the basilar artery.. Gume Mckeon MD Cerebral Arteriogram 10/19/16 0000 Signed Impressions: Service Date/Time: Wednesday, October 19, 2016 16:06 - CONCLUSION: 1. Vasospasm in the left MCA and SRI territories 2. Spasmolytic infusion, left internal carotid artery as above.. 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 Gume Mckeon MD Pelvis X-Ray 10/05/16109 Signed Impressions: Service Date/Time: Wednesday, October 05, 2016 01:22 - CONCLUSION: Unremarkable examination of the pelvis. Ruben Acuña Jr., MD Chest CT 10/05/16109 Signed Impressions: Service Date/Time: Wednesday, October 05, 2016 01:46 - CONCLUSION: 1. No acute intrathoracic abnormality. 2. Bibasilar atelectasis. 3. Cardiomegaly. 4. Prior granulomatous disease. Ruben Acuña Jr., MD Cervical Spine CT 10/05/16109 Signed Impressions: Service Date/Time: Wednesday, October 05, 2016 01:40 - CONCLUSION: 1. No fracture or dislocation. 2. Multilevel degenerative changes. Ruben Acuña Jr., MD Abdomen/Pelvis CT 10/05/16 0110 Signed Impressions: Service Date/Time: Wednesday, October 05, 2016 01:46 - CONCLUSION: 1. No acute trauma. 2. Rounded area of decreased density involving the pancreatic head. I cannot completely exclude pancreatic head mass. At some point MRI of the pancreas is suggested to further evaluate. 3. Focal area of poor enhancement involving the left kidney. This may relate to an area of parenchymal scarring. I cannot completely exclude a mass. This can be further assessed with MRI as well. Ruben Acuña Jr., MD Objective Remarks GENERAL: This is a well-nourished, well-developed patient, in no apparent distress. SKIN: Warm and dry. HEENT: Normocephalic. Nonicteric. No injection or drainage. Nose without bleeding. Airway patent. NECK: Trachea midline. Supple. CARDIOVASCULAR: Regular rate and rhythm without murmurs, gallops, or rubs. RESPIRATORY: Clear to auscultation. Breath sounds equal bilaterally. No wheezes , rales, or rhonchi. GASTROINTESTINAL: Abdomen soft, non-tender, nondistended. Bowel Sounds normoactive x4.. MUSCULOSKELETAL: Extremities without clubbing, cyanosis, or edema. NEUROLOGICAL: Awake and alert. Oriented to person, periods of confusion. Moves all extremities. Normal speech. 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 ICD Code: I60.8 - Other nontraumatic subarachnoid hemorrhage Status: Acute (2) Hypertension ICD Code: I10 - Essential (primary) hypertension Status: Chronic (3) Major neurocognitive disorder due to vascular disease, without behavioral disturbance, severe ICD Code: F01.50 - Vascular dementia without behavioral disturbance Status: Acute (4) Intracranial hemorrhage ICD Code: I62.9 - Nontraumatic intracranial hemorrhage, unspecified Status: Resolved (5) Major neurocognitive disorder as late effect of traumatic brain injury with behavioral disturbance ICD Code: S06.9X9S - Unspecified intracranial injury with loss of consciousness of unspecified duration, sequela; F02.81 - Dementia in other diseases classified elsewhere with behavioral disturbance Status: Acute (6) Encephalopathy ICD Code: G93.40 - Encephalopathy, unspecified Status: Acute (7) Acute respiratory failure with hypoxia and hypercarbia ICD Code: J96.01 - Acute respiratory failure with hypoxia; J96.02 - Acute respiratory failure with hypercapnia Status: Acute Assessment and Plan Mr. Nunez is a 51 year old male who was brought to the hospital as a trauma alert due to head injury after he fell in the bathroom and hit his head. Patient was unresponsive for approximately 15 minutes by the time ambulance services arrived. His mentation waxed and waned with GCS ranging from [address] head indicated subarachnoid hemorrhage, acute. Auditory hallucinations - Psychiatry consulted - Continues to have hallucinations but patients behavior has been much improved with seroquel use. 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 Neuropsychology following patient ultimately for discharge placement and assistance with recommendations. Per neuropsych note, ongoing areas of concern include behavioral impulsivity, lack of insight and judgement. - Speech therapy recommends regular diet with thin liquids, Patient is eating well. PEG dc'd 01/08/17. - Cont PT/OT. - Continue Seroquel 200mg BID per psychiatry - Continue with reorientation - Encourage daily activities Acute hypoxic hypercarbic respiratory failure, resolved - Tracheostomy 10/23/16, removed, old trach site healed. - Monitor respiratory status C. difficile colitis, resolved - Completed Flagyl on 10/23 - No diarrhea reported - off Lactinex Hypokalemia, resolved: Continue scheduled KCL 40 meq PO BID. Follow and replace as needed. - potassium levels stable - monitor intermittently - Checking CMP and CBC today. Follow. Auditory Hallucinations: Psychiatry consulted, appreciated assistance. DVT prophylaxis: SCDs, YOUSIF hose, Lovenox. Ambulation. GI prophylaxis: Protonix. Discussed with Patient and Dr. Piedra Discharge Planning Discharge planning ongoing. CM continues to address funding and placement issue. Pending SSI. Pt's safety is also in question due to his cognitive status. Neuropsychological testing results in EMR. Insight and awareness are greatly impaired. Problem Qualifiers (1) Hypertension: Tenzin Bronson Mar 30, 2017 14:33
[2017-03-30 16:06] VITALS: BP 126/72; PULSE 94; RESP 20; TEMP 98.8; O2SAT 94
[2017-03-30 20:18] VITALS: BP 107/56; PULSE 94; RESP 17; TEMP 98.5; O2SAT 94
[2017-03-30] MEDS: ENOXAPARIN SODIUM 40 MG/0.4 ML SYRINGE SQ SCH (21:00)
[2017-03-31] VITALS (7 sets, daily range): BP systolic 107–134; BP diastolic 63–81; PULSE 67–97; RESP 16–20; TEMP 97.7–98.6; O2SAT 94–96
[2017-03-31] MEDS: LABETALOL HCL 100 MG TAB PO SCH ×3 (04:00→22:27)
[2017-03-31] MEDS: QUEtiapine FUMARATE 100 MG TAB PO SCH ×2 (09:51→14:07)
[2017-03-31] MEDS: LACTULOSE SYRUP 20 GM/30 ML CUP PO SCH (09:51)
[2017-03-31] MEDS: PANTOPRAZOLE SOD 40 MG DELAYED RELEASE TAB PO SCH (09:51)
[2017-03-31] MEDS: DOCUSATE SODIUM 50 MG/SENNA 8.6 MG TAB PO SCH ×2 (09:51→22:27)
[2017-03-31] MEDS: amLODIPine BESYLATE 5 MG TAB PO SCH (09:51)
[2017-03-31] MEDS: PRAVASTATIN SOD 40 MG TAB PO SCH (09:51)
[2017-03-31] MEDS: POTASSIUM CHLORIDE 20 MEQ CONTROLLED RELEASE TAB PO SCH (09:52)
--- NOTE | 2017-03-31 11:28 | HHI.PR ---
Subjective Remarks Follow-up visit TBI, ICH, chronic encephalopathy. Patient seen and examined today. Laying in bed. Patient states she is not doing well because "my was killed last night here in front of me I saw it." Patient reassurance provided but insistent that his will not come today to visit because she was gone. Appears comfortable. Objective Vital Signs Date Time Temp Pulse Resp B/P (MAP) Pulse Ox O2 Delivery O2 Flow Rate FiO2 03/31/17 08:06 98.2 76 20 129/81 (97) 95 03/31/17 04:19 97.7 67 17 134/79 (97) 96 03/31/17 00:23 98.6 73 17 130/68 (88) 96 03/30/17 20:18 98.5 94 17 107/56 (73) 94 03/30/17 16:06 98.8 94 20 126/72 (90) 94 03/30/17 12:02 98.6 88 20 134/86 (102) 97 I/O 03/30/17 03/30/17 03/30/17 03/31/17 03/31/17 03/31/17 07:00 15:00 23:00 07:00 15:00 23:00 Intake Total 240 ml 920 ml 600 ml Balance 240 ml 920 ml 600 ml Intake Oral 240 ml 920 ml 600 ml # Voids 3 3 5 # Bowel Movements 1 1 Result Diagram: 03/29/17 1100 03/29/17 1100 Imaging Last Impressions Chest X-Ray 02/18/17 0000 Signed Impressions: Service Date/Time: Saturday, February 18, 2017 10:51 - CONCLUSION: Diminished lung volumes. No infiltrate. Tyrese Raymond MD Abdomen X-Ray 02/18/17 0000 Signed Impressions: Service Date/Time: Saturday, February 18, 2017 10:56 - CONCLUSION: Unremarkable abdomen. Tyrese Raymond MD Gall Bladder Ultrasound 02/17/17 0000 Signed Impressions: Service Date/Time: Friday, February 17, 2017 17:45 - CONCLUSION: Mildly enlarged liver and small amount of gallbladder sludge. Tim Hammonds MD Head CT 12/09/16 0000 Signed Impressions: Service Date/Time: Friday, December 09, 2016 17:36 - CONCLUSION: 1. Right ventriculostomy tube remains in place with decrease in ventricular size since November 24. There is some encephalomalacia around the shunt and a probable small infarct in the left basal ganglia. No new hemorrhage or shift. Tip Harris MD Transcranial Doppler Study Complete 10/26/16 0700 Signed Impressions: Service Date/Time: Wednesday, October 26, 2016 08:20 - CONCLUSION: Minimal interval improvement with no evidence for vasospasm. Christian Song MD FACR Neck CTA 10/19/16 0000 Signed Impressions: Service Date/Time: Wednesday, October 19, 2016 14:19 - CONCLUSION: Negative for dissection or significant stenosis. Christian Song MD FACR Head CTA 10/19/16 0000 Signed Impressions: Service Date/Time: Wednesday, October 19, 2016 14:19 - CONCLUSION: 1. Interval development of significant vasospasm in the left MCA and SRI territories. 2. Mild vasospasm in the basilar artery.. Gume Mckeon MD Cerebral Arteriogram 10/19/16 0000 Signed Impressions: Service Date/Time: Wednesday, October 19, 2016 16:06 - CONCLUSION: 1. Vasospasm in the left MCA and SRI territories 2. Spasmolytic infusion, left internal carotid artery as above.. 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 Gume Mckeon MD Pelvis X-Ray 10/05/16109 Signed Impressions: Service Date/Time: Wednesday, October 05, 2016 01:22 - CONCLUSION: Unremarkable examination of the pelvis. Ruben Acuña Jr., MD Chest CT 10/05/16109 Signed Impressions: Service Date/Time: Wednesday, October 05, 2016 01:46 - CONCLUSION: 1. No acute intrathoracic abnormality. 2. Bibasilar atelectasis. 3. Cardiomegaly. 4. Prior granulomatous disease. Ruben Acuña Jr., MD Cervical Spine CT 10/05/16109 Signed Impressions: Service Date/Time: Wednesday, October 05, 2016 01:40 - CONCLUSION: 1. No fracture or dislocation. 2. Multilevel degenerative changes. Ruben Acuña Jr., MD Abdomen/Pelvis CT 10/05/16 0110 Signed Impressions: Service Date/Time: Wednesday, October 05, 2016 01:46 - CONCLUSION: 1. No acute trauma. 2. Rounded area of decreased density involving the pancreatic head. I cannot completely exclude pancreatic head mass. At some point MRI of the pancreas is suggested to further evaluate. 3. Focal area of poor enhancement involving the left kidney. This may relate to an area of parenchymal scarring. I cannot completely exclude a mass. This can be further assessed with MRI as well. Ruben Acuña Jr., MD Procedures 10/05/16 right frontal twist drill for ventriculostomy placement 10/20/16 arterial line placement 10/23/16 bedside percutaneous tracheostomy under direct bronchoscopic visualization 10/24/16 PEG tube placement at bedside Objective Remarks GENERAL: This is a well-nourished, well-developed patient, in no apparent distress. SKIN: Warm and dry. HEENT: Normocephalic. Nonicteric. No injection or drainage. Nose without bleeding. Airway patent. NECK: Trachea midline. Supple. CARDIOVASCULAR: Regular rate and rhythm without murmurs, gallops, or rubs. RESPIRATORY: Clear to auscultation. Breath sounds equal bilaterally. No wheezes , rales, or rhonchi. GASTROINTESTINAL: Abdomen soft, non-tender, nondistended. Bowel Sounds normoactive x4.. MUSCULOSKELETAL: Extremities without clubbing, cyanosis, or edema. NEUROLOGICAL: Awake and alert. Oriented to person, periods of confusion. Moves all extremities. Normal speech. 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 Nunez is a 51 year old male who was brought to the hospital as a trauma alert due to head injury after he fell in the bathroom and hit his head. Patient was unresponsive for approximately 15 minutes by the time ambulance services arrived. His mentation waxed and waned with GCS ranging from [address] head indicated subarachnoid hemorrhage, acute. Auditory hallucinations Visual hallucinations - Psychiatry consulted and recommends continued use of seroquel - Continues to have hallucinations but patients behavior has been much improved with seroquel use. - Continue to monitor with ADLs - Monitor for agitation and increased hallucinations. If increase hallucinations noted, will reconsult psychiatry. Intracranial hemorrhage, status post basilar artery coiling 10/05, Status post [employer]IST shunt on 11/24/2016 Chronic encephalopathy Hydrocephalus Cortical blindness - Neurology signed off. Neuropsychology following patient ultimately for discharge placement and assistance with recommendations. Per neuropsych note, ongoing areas of concern include behavioral impulsivity, lack of insight and judgement. - Speech therapy recommends regular diet with thin liquids, Patient is eating well. PEG dc'd 01/08/17. - Cont PT/OT. - Continue Seroquel 200mg BID per psychiatry - Continue with reorientation - Encourage daily activities Acute hypoxic hypercarbic respiratory failure, resolved - Tracheostomy 10/23/16, removed, old trach site healed. - Monitor respiratory status C. difficile colitis, resolved - Completed Flagyl on 10/23 - No diarrhea reported - off Lactinex DVT prophylaxis: SCDs, YOUSIF hose, Lovenox. Ambulation. GI prophylaxis: Protonix. Discussed with Patient and Dr. Piedra Discharge Planning Discharge planning ongoing. CM continues to address funding and placement issue. Pending SSI. Pt's safety is also in question due to his cognitive status. Neuropsychological testing results in EMR. Insight and awareness are greatly impaired. Problem Qualifiers (1) Hypertension: Tenzin Bronson Mar 31, 2017 11:28
[2017-03-31] MEDS: ENOXAPARIN SODIUM 40 MG/0.4 ML SYRINGE SQ SCH (22:27)
[2017-04-01] MEDS: LABETALOL HCL 100 MG TAB PO SCH ×3 (04:00→21:14)
[2017-04-01 04:49] VITALS: BP 106/69; PULSE 74; RESP 18; TEMP 97.7; O2SAT 98
[2017-04-01 07:59] VITALS: BP 112/71; PULSE 76; RESP 20; TEMP 98; O2SAT 95
[2017-04-01] MEDS: QUEtiapine FUMARATE 100 MG TAB PO SCH ×2 (09:26→12:25)
[2017-04-01] MEDS: PRAVASTATIN SOD 40 MG TAB PO SCH (09:26)
[2017-04-01] MEDS: amLODIPine BESYLATE 5 MG TAB PO SCH (09:26)
[2017-04-01] MEDS: LACTULOSE SYRUP 20 GM/30 ML CUP PO SCH (09:26)
[2017-04-01] MEDS: PANTOPRAZOLE SOD 40 MG DELAYED RELEASE TAB PO SCH (09:26)
[2017-04-01] MEDS: DOCUSATE SODIUM 50 MG/SENNA 8.6 MG TAB PO SCH ×2 (09:26→21:14)
[2017-04-01] MEDS: POTASSIUM CHLORIDE 20 MEQ CONTROLLED RELEASE TAB PO SCH (09:26)
--- NOTE | 2017-04-01 09:26 | HHI.PR ---
Subjective Remarks Follow-up visit TBI, ICH, chronic encephalopathy. Patient seen and examined today. Laying in bed. Able to sit up without difficulty. Confuse but able to follow commands and responds to most questions. Denies any complaints. States he is doing well. Objective Vitals Vital Signs Date Time Temp Pulse Resp B/P (MAP) Pulse Ox O2 Delivery O2 Flow Rate FiO2 04/01/17 07:59 98.0 76 20 112/71 (85) 95 04/01/17 04:49 97.7 74 18 106/69 (81) 98 03/31/17 23:54 98.4 97 16 107/75 (86) 94 03/31/17 19:45 98.3 97 16 118/73 (88) 95 03/31/17 15:49 98.3 97 20 113/63 (80) 94 03/31/17 12:26 98.1 90 20 116/71 (86) 96 I/O 03/31/17 03/31/17 03/31/17 04/01/17 04/01/17 04/01/17 07:00 15:00 23:00 07:00 15:00 23:00 Intake Total 600 ml 1440 ml Balance 600 ml 1440 ml Intake Oral 600 ml 1440 ml # Voids 5 4 4 # Bowel Movements 1 1 0 Result Diagram: 03/29/17 1100 03/29/17 1100 Imaging Last Impressions Chest X-Ray 02/18/17 0000 Signed Impressions: Service Date/Time: Saturday, February 18, 2017 10:51 - CONCLUSION: Diminished lung volumes. No infiltrate. Tyrese Raymond MD Abdomen X-Ray 02/18/17 0000 Signed Impressions: Service Date/Time: Saturday, February 18, 2017 10:56 - CONCLUSION: Unremarkable abdomen. Tyrese Raymond MD Gall Bladder Ultrasound 02/17/17 0000 Signed Impressions: Service Date/Time: Friday, February 17, 2017 17:45 - CONCLUSION: Mildly enlarged liver and small amount of gallbladder sludge. Tim Hammonds MD Head CT 12/09/16 0000 Signed Impressions: Service Date/Time: Friday, December 09, 2016 17:36 - CONCLUSION: 1. Right ventriculostomy tube remains in place with decrease in ventricular size since November 24. There is some encephalomalacia around the shunt and a probable small infarct in the left basal ganglia. No new hemorrhage or shift. Tip Harris MD Transcranial Doppler Study Complete 10/26/16 0700 Signed Impressions: Service Date/Time: Wednesday, October 26, 2016 08:20 - CONCLUSION: Minimal interval improvement with no evidence for vasospasm. Christian Song MD FACR Neck CTA 10/19/16 0000 Signed Impressions: Service Date/Time: Wednesday, October 19, 2016 14:19 - CONCLUSION: Negative for dissection or significant stenosis. Christian Song MD FACR Head CTA 10/19/16 0000 Signed Impressions: Service Date/Time: Wednesday, October 19, 2016 14:19 - CONCLUSION: 1. Interval development of significant vasospasm in the left MCA and SRI territories. 2. Mild vasospasm in the basilar artery.. Gume Mckeon MD Cerebral Arteriogram 10/19/16 0000 Signed Impressions: Service Date/Time: Wednesday, October 19, 2016 16:06 - CONCLUSION: 1. Vasospasm in the left MCA and SRI territories 2. Spasmolytic infusion, left internal carotid artery as above.. 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 Gume Mckeon MD Pelvis X-Ray 10/05/16109 Signed Impressions: Service Date/Time: Wednesday, October 05, 2016 01:22 - CONCLUSION: Unremarkable examination of the pelvis. Ruben Acuña Jr., MD Chest CT 10/05/16109 Signed Impressions: Service Date/Time: Wednesday, October 05, 2016 01:46 - CONCLUSION: 1. No acute intrathoracic abnormality. 2. Bibasilar atelectasis. 3. Cardiomegaly. 4. Prior granulomatous disease. Ruben Acuña Jr., MD Cervical Spine CT 10/05/16109 Signed Impressions: Service Date/Time: Wednesday, October 05, 2016 01:40 - CONCLUSION: 1. No fracture or dislocation. 2. Multilevel degenerative changes. Ruben Acuña Jr., MD Abdomen/Pelvis CT 10/05/16109 Signed Impressions: Service Date/Time: Wednesday, October 05, 2016 01:46 - CONCLUSION: 1. No acute trauma. 2. Rounded area of decreased density involving the pancreatic head. I cannot completely exclude pancreatic head mass. At some point MRI of the pancreas is suggested to further evaluate. 3. Focal area of poor enhancement involving the left kidney. This may relate to an area of parenchymal scarring. I cannot completely exclude a mass. This can be further assessed with MRI as well. Ruben Acuña Jr., MD Objective Remarks GENERAL: This is a well-nourished, well-developed patient, in no apparent distress. SKIN: Warm and dry. HEENT: Normocephalic. Nonicteric. No injection or drainage. Nose without bleeding. Airway patent. NECK: Trachea midline. Supple. CARDIOVASCULAR: Regular rate and rhythm without murmurs, gallops, or rubs. RESPIRATORY: Clear to auscultation. Breath sounds equal bilaterally. No wheezes , rales, or rhonchi. GASTROINTESTINAL: Abdomen soft, non-tender, nondistended. Bowel Sounds normoactive x4.. MUSCULOSKELETAL: Extremities without clubbing, cyanosis, or edema. NEUROLOGICAL: Awake and alert. Oriented to person, periods of confusion. Moves all extremities. Normal speech. 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 ICD Code: I60.8 - Other nontraumatic subarachnoid hemorrhage Status: Acute (2) Hypertension ICD Code: I10 - Essential (primary) hypertension Status: Chronic (3) Major neurocognitive disorder due to vascular disease, without behavioral disturbance, severe ICD Code: F01.50 - Vascular dementia without behavioral disturbance Status: Acute (4) Intracranial hemorrhage ICD Code: I62.9 - Nontraumatic intracranial hemorrhage, unspecified Status: Resolved (5) Major neurocognitive disorder as late effect of traumatic brain injury with behavioral disturbance ICD Code: S06.9X9S - Unspecified intracranial injury with loss of consciousness of unspecified duration, sequela; F02.81 - Dementia in other diseases classified elsewhere with behavioral disturbance Status: Acute (6) Encephalopathy ICD Code: G93.40 - Encephalopathy, unspecified Status: Acute (7) Acute respiratory failure with hypoxia and hypercarbia ICD Code: J96.01 - Acute respiratory failure with hypoxia; J96.02 - Acute respiratory failure with hypercapnia Status: Acute Assessment and Plan Mr. Nunez is a 51 year old male who was brought to the hospital as a trauma alert due to head injury after he fell in the bathroom and hit his head. Patient was unresponsive for approximately 15 minutes by the time ambulance services arrived. His mentation waxed and waned with GCS ranging from [address] head indicated subarachnoid hemorrhage, acute. Auditory hallucinations Visual hallucinations - Psychiatry consulted and recommends continued use of seroquel - Continues to have hallucinations but patients behavior has been much improved with seroquel use. - Continue to monitor with ADLs - Monitor for agitation and increased hallucinations. If increase hallucinations noted, will reconsult psychiatry. 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 Neuropsychology following patient ultimately for discharge placement and assistance with recommendations. Per neuropsych note, ongoing areas of concern include behavioral impulsivity, lack of insight and judgement. - Speech therapy recommends regular diet with thin liquids, Patient is eating well. PEG dc'd 01/08/17. - Cont PT/OT. - Continue Seroquel 200mg BID per psychiatry - Continue with reorientation - Encourage daily activities Acute hypoxic hypercarbic respiratory failure, resolved - Tracheostomy 10/23/16, removed, old trach site healed. - Monitor respiratory status C. difficile colitis, resolved - Completed Flagyl on 10/23 - No diarrhea reported - off Lactinex DVT prophylaxis: SCDs, YOUSIF hose, Lovenox. Ambulation. GI prophylaxis: Protonix. Discussed with Patient and Dr. Santos Discharge Planning Discharge planning ongoing. CM continues to address funding and placement issue. Pending SSI. Pt's safety is also in question due to his cognitive status. Neuropsychological testing results in EMR. Insight and awareness are greatly impaired. Problem Qualifiers (1) Hypertension: Tenzin Bronson Apr 01, 2017 09:26
[2017-04-01 12:13] VITALS: BP 132/78; PULSE 89; RESP 20; TEMP 98.3; O2SAT 93
[2017-04-01 15:56] VITALS: BP 123/80; PULSE 87; RESP 20; TEMP 98; O2SAT 93
[2017-04-01 20:00] VITALS: BP 120/84; PULSE 82; RESP 18; TEMP 97.8; O2SAT 93
[2017-04-01] MEDS: ENOXAPARIN SODIUM 40 MG/0.4 ML SYRINGE SQ SCH (21:14)
[2017-04-02] VITALS: BP 123/76; PULSE 110; RESP 18; TEMP 97.6; O2SAT 92
[2017-04-02 04:00] VITALS: BP 117/77; PULSE 72; RESP 20; TEMP 97.9; O2SAT 95
[2017-04-02] MEDS: LABETALOL HCL 100 MG TAB PO SCH ×3 (04:19→20:00)
[2017-04-02 08:00] VITALS: BP 118/72; PULSE 78; RESP 19; TEMP 97.6; O2SAT 93
[2017-04-02] MEDS: LACTULOSE SYRUP 20 GM/30 ML CUP PO SCH (09:45)
[2017-04-02] MEDS: PRAVASTATIN SOD 40 MG TAB PO SCH (09:49)
[2017-04-02] MEDS: amLODIPine BESYLATE 5 MG TAB PO SCH (09:49)
[2017-04-02] MEDS: QUEtiapine FUMARATE 100 MG TAB PO SCH ×2 (09:49→13:17)
[2017-04-02] MEDS: POTASSIUM CHLORIDE 20 MEQ CONTROLLED RELEASE TAB PO SCH (09:49)
[2017-04-02] MEDS: PANTOPRAZOLE SOD 40 MG DELAYED RELEASE TAB PO SCH (09:50)
[2017-04-02] MEDS: DOCUSATE SODIUM 50 MG/SENNA 8.6 MG TAB PO SCH ×2 (09:50→21:05)
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
[2017-04-02 12:00] VITALS: BP 126/65; PULSE 71; RESP 17; TEMP 97.8; O2SAT 95
[2017-04-02 16:00] VITALS: BP 124/76; PULSE 74; RESP 16; TEMP 98; O2SAT 93
[2017-04-02 19:56] VITALS: BP 118/74; PULSE 84; RESP 16; TEMP 98.1; O2SAT 95
[2017-04-02] MEDS: ENOXAPARIN SODIUM 40 MG/0.4 ML SYRINGE SQ SCH (21:07)
[2017-04-03 00:16] VITALS: BP 127/76; PULSE 80; RESP 18; TEMP 97.6; O2SAT 97
[2017-04-03] MEDS: LABETALOL HCL 100 MG TAB PO SCH ×3 (04:48→20:39)
[2017-04-03 04:51] VITALS: BP 122/78; PULSE 79; RESP 16; TEMP 98.2; O2SAT 98
[2017-04-03 08:33] VITALS: BP 133/80; PULSE 75; RESP 20; TEMP 98; O2SAT 94
[2017-04-03] MEDS: QUEtiapine FUMARATE 100 MG TAB PO SCH ×2 (09:18→12:56)
[2017-04-03] MEDS: DOCUSATE SODIUM 50 MG/SENNA 8.6 MG TAB PO SCH ×2 (09:18→20:39)
[2017-04-03] MEDS: PANTOPRAZOLE SOD 40 MG DELAYED RELEASE TAB PO SCH (09:18)
[2017-04-03] MEDS: PRAVASTATIN SOD 40 MG TAB PO SCH (09:18)
[2017-04-03] MEDS: amLODIPine BESYLATE 5 MG TAB PO SCH (09:19)
[2017-04-03] MEDS: LACTULOSE SYRUP 20 GM/30 ML CUP PO SCH (09:19)
[2017-04-03] MEDS: POTASSIUM CHLORIDE 20 MEQ CONTROLLED RELEASE TAB PO SCH (09:19)
--- NOTE | 2017-04-03 10:54 | HHI.PR ---
Subjective Remarks Follow-up visit TBI, ICH, chronic encephalopathy. Patient seen and examined today walking around his room. Calm. Complied with request to sit down. States he is not doing well "because it rained." Objective Vitals Vital Signs Date Time Temp Pulse Resp B/P (MAP) Pulse Ox O2 Delivery O2 Flow Rate FiO2 04/03/17 08:33 98.0 75 20 133/80 (97) 94 04/03/17 04:51 98.2 79 16 122/78 (93) 98 04/03/17 00:16 97.6 80 18 127/76 (93) 97 04/02/17 19:56 98.1 84 16 118/74 (89) 95 04/02/17 16:00 98.0 74 16 124/76 (92) 93 04/02/17 12:00 97.8 71 17 126/65 (85) 95 I/O 04/02/17 04/02/17 04/02/17 04/03/17 04/03/17 04/03/17 07:00 15:00 23:00 07:00 15:00 23:00 Intake Total 480 ml Balance 480 ml Intake Oral 480 ml # Voids 2 4 2 4 # Bowel Movements 0 Objective Remarks GENERAL: This is a well-nourished, well-developed patient, in no apparent distress. SKIN: Warm and dry. HEENT: Normocephalic. Nonicteric. No injection or drainage. Nose without bleeding. Airway patent. NECK: Trachea midline. Supple. CARDIOVASCULAR: Regular rate and rhythm without murmurs, gallops, or rubs. RESPIRATORY: Clear to auscultation. Breath sounds equal bilaterally. No wheezes , rales, or rhonchi. GASTROINTESTINAL: Abdomen soft, non-tender, nondistended. Bowel Sounds normoactive x4.. MUSCULOSKELETAL: Extremities without clubbing, cyanosis, or edema. NEUROLOGICAL: Awake and alert. Oriented to person, confuse. Moves all extremities. Normal speech. 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 ICD Code: I60.8 - Other nontraumatic subarachnoid hemorrhage Status: Acute (2) Hypertension ICD Code: I10 - Essential (primary) hypertension Status: Chronic (3) Major neurocognitive disorder due to vascular disease, without behavioral disturbance, severe ICD Code: F01.50 - Vascular dementia without behavioral disturbance Status: Acute (4) Intracranial hemorrhage ICD Code: I62.9 - Nontraumatic intracranial hemorrhage, unspecified Status: Resolved (5) Major neurocognitive disorder as late effect of traumatic brain injury with behavioral disturbance ICD Code: S06.9X9S - Unspecified intracranial injury with loss of consciousness of unspecified duration, sequela; F02.81 - Dementia in other diseases classified elsewhere with behavioral disturbance Status: Acute (6) Encephalopathy ICD Code: G93.40 - Encephalopathy, unspecified Status: Acute (7) Acute respiratory failure with hypoxia and hypercarbia ICD Code: J96.01 - Acute respiratory failure with hypoxia; J96.02 - Acute respiratory failure with hypercapnia Status: Acute Assessment and Plan Mr. Nunez is a 51 year old male who was brought to the hospital as a trauma alert due to head injury after he fell in the bathroom and hit his head. Patient was unresponsive for approximately 15 minutes by the time ambulance services arrived. His mentation waxed and waned with GCS ranging from [address] head indicated subarachnoid hemorrhage, acute. Auditory hallucinations Visual hallucinations - Psychiatry consulted and recommends continued use of seroquel - Continues to have hallucinations but patients behavior has been much improved with seroquel use. - Continue to monitor with ADLs - Monitor for agitation and increased hallucinations. If increase hallucinations noted, will reconsult psychiatry. Intracranial hemorrhage, status post basilar artery coiling 10/05, Status post [employer] shunt on 11/24/2016 Chronic encephalopathy Hydrocephalus Cortical blindness - Neurology signed off. Neuropsychology following patient ultimately for discharge placement and assistance with recommendations. Per neuropsych note, ongoing areas of concern include behavioral impulsivity, lack of insight and judgement. - Speech therapy recommends regular diet with thin liquids, Patient is eating well. PEG dc'd 01/08/17. - Cont PT/OT. - Continue Seroquel 200mg BID per psychiatry - Continue with reorientation - Encourage daily activities Acute hypoxic hypercarbic respiratory failure, resolved - Tracheostomy 10/23/16, removed, old trach site healed. - Monitor respiratory status C. difficile colitis, resolved - Completed Flagyl on 10/23 - No diarrhea reported - off Lactinex DVT prophylaxis: SCDs, YOUSIF hose, Lovenox. Ambulation. GI prophylaxis: Protonix. Discussed with Patient and Dr. Santos Discharge Planning Discharge planning ongoing. CM continues to address funding and placement issue. Pending SSI. Pt's safety is also in question due to his cognitive status. Neuropsychological testing results in EMR. Insight and awareness are greatly impaired. Problem Qualifiers (1) Hypertension: Tenzin Bronson Apr 03, 2017 10:54
[2017-04-03 12:02] VITALS: BP 128/75; PULSE 97; RESP 19; TEMP 97.7; O2SAT 94
[2017-04-03 15:39] VITALS: BP 128/68; PULSE 99; RESP 20; TEMP 98.2; O2SAT 94
[2017-04-03 20:00] VITALS: BP 144/90; PULSE 93; RESP 18; TEMP 97.8; O2SAT 94
[2017-04-03] MEDS: ACETAMINOPHEN 325 MG TAB PO PRN (20:38)
[2017-04-03] MEDS: ENOXAPARIN SODIUM 40 MG/0.4 ML SYRINGE SQ SCH (20:39)
[2017-04-03] MEDS: diphenhydrAMINE HCL 50 MG CAP PO PRN (20:39)
[2017-04-04 04:00] VITALS: BP 124/79; PULSE 67; RESP 20; TEMP 97.6; O2SAT 94
[2017-04-04] MEDS: LABETALOL HCL 100 MG TAB PO SCH ×3 (05:01→20:54)
[2017-04-04 07:56] VITALS: BP 128/81; PULSE 67; RESP 20; TEMP 97.5; O2SAT 95
[2017-04-04] MEDS: LACTULOSE SYRUP 20 GM/30 ML CUP PO SCH (09:48)
[2017-04-04] MEDS: amLODIPine BESYLATE 5 MG TAB PO SCH (09:48)
[2017-04-04] MEDS: PANTOPRAZOLE SOD 40 MG DELAYED RELEASE TAB PO SCH (09:48)
[2017-04-04] MEDS: DOCUSATE SODIUM 50 MG/SENNA 8.6 MG TAB PO SCH ×2 (09:48→20:54)
[2017-04-04] MEDS: POTASSIUM CHLORIDE 20 MEQ CONTROLLED RELEASE TAB PO SCH (09:48)
[2017-04-04] MEDS: PRAVASTATIN SOD 40 MG TAB PO SCH (09:48)
[2017-04-04] MEDS: QUEtiapine FUMARATE 100 MG TAB PO SCH ×2 (09:48→12:00)
--- NOTE | 2017-04-04 10:54 | HHI.PR ---
Subjective Remarks Follow-up visit TBI, ICH, chronic encephalopathy. Patient seen and examined today laying in bed. Denies any hallucinations. Denies pain and discomfort. Denies SOB/ dyspnea. Denies chest pain. Denies fevers, chills, n/v/d. Objective Vitals Vital Signs Date Time Temp Pulse Resp B/P (MAP) Pulse Ox O2 Delivery O2 Flow Rate FiO2 04/04/17 07:56 97.5 67 20 128/81 (97) 95 04/04/17 04:00 97.6 67 20 124/79 (94) 94 04/03/17 20:00 97.8 93 18 144/90 (108) 94 04/03/17 15:39 98.2 99 20 128/68 (88) 94 04/03/17 12:02 97.7 97 19 128/75 (92) 94 I/O 04/03/17 04/03/17 04/03/17 04/04/17 04/04/17 04/04/17 07:00 15:00 23:00 07:00 15:00 23:00 Intake Total 600 ml Balance 600 ml Intake Oral 600 ml # Voids 4 3 1 1 # Bowel Movements 0 1 0 Imaging Last Impressions Chest X-Ray 02/18/17 0000 Signed Impressions: Service Date/Time: Saturday, February 18, 2017 10:51 - CONCLUSION: Diminished lung volumes. No infiltrate. Tyrese Raymond MD Abdomen X-Ray 02/18/17 0000 Signed Impressions: Service Date/Time: Saturday, February 18, 2017 10:56 - CONCLUSION: Unremarkable abdomen. Tyrese Raymond MD Gall Bladder Ultrasound 02/17/17 0000 Signed Impressions: Service Date/Time: Friday, February 17, 2017 17:45 - CONCLUSION: Mildly enlarged liver and small amount of gallbladder sludge. Tim Hammonds MD Head CT 12/09/16 0000 Signed Impressions: Service Date/Time: Friday, December 09, 2016 17:36 - CONCLUSION: 1. Right ventriculostomy tube remains in place with decrease in ventricular size since November 24. There is some encephalomalacia around the shunt and a probable small infarct in the left basal ganglia. No new hemorrhage or shift. Tip Harris MD Transcranial Doppler Study Complete 10/26/16 0700 Signed Impressions: Service Date/Time: Wednesday, October 26, 2016 08:20 - CONCLUSION: Minimal interval improvement with no evidence for vasospasm. Christian Song MD FACR Neck CTA 10/19/16 0000 Signed Impressions: Service Date/Time: Wednesday, October 19, 2016 14:19 - CONCLUSION: Negative for dissection or significant stenosis. Christian Song MD FACR Head CTA 10/19/16 0000 Signed Impressions: Service Date/Time: Wednesday, October 19, 2016 14:19 - CONCLUSION: 1. Interval development of significant vasospasm in the left MCA and SRI territories. 2. Mild vasospasm in the basilar artery.. Gume Mckeon MD Cerebral Arteriogram 10/19/16 0000 Signed Impressions: Service Date/Time: Wednesday, October 19, 2016 16:06 - CONCLUSION: 1. Vasospasm in the left MCA and SRI territories 2. Spasmolytic infusion, left internal carotid artery as above.. 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 Gume Mckeon MD Pelvis X-Ray 10/05/16109 Signed Impressions: Service Date/Time: Wednesday, October 05, 2016 01:22 - CONCLUSION: Unremarkable examination of the pelvis. Ruben Acuña Jr., MD Chest CT 10/05/16109 Signed Impressions: Service Date/Time: Wednesday, October 05, 2016 01:46 - CONCLUSION: 1. No acute intrathoracic abnormality. 2. Bibasilar atelectasis. 3. Cardiomegaly. 4. Prior granulomatous disease. Ruben Acuña Jr., MD Cervical Spine CT 10/05/16109 Signed Impressions: Service Date/Time: Wednesday, October 05, 2016 01:40 - CONCLUSION: 1. No fracture or dislocation. 2. Multilevel degenerative changes. Ruben Acuña Jr., MD Abdomen/Pelvis CT 10/05/16109 Signed Impressions: Service Date/Time: Wednesday, October 05, 2016 01:46 - CONCLUSION: 1. No acute trauma. 2. Rounded area of decreased density involving the pancreatic head. I cannot completely exclude pancreatic head mass. At some point MRI of the pancreas is suggested to further evaluate. 3. Focal area of poor enhancement involving the left kidney. This may relate to an area of parenchymal scarring. I cannot completely exclude a mass. This can be further assessed with MRI as well. Ruben Acuña Jr., MD Objective Remarks GENERAL: This is a well-nourished, well-developed patient, in no apparent distress. SKIN: Warm and dry. HEENT: Normocephalic. Nonicteric. No injection or drainage. Nose without bleeding. Airway patent. NECK: Trachea midline. Supple. CARDIOVASCULAR: Regular rate and rhythm without murmurs, gallops, or rubs. RESPIRATORY: Clear to auscultation. Breath sounds equal bilaterally. No wheezes , rales, or rhonchi. GASTROINTESTINAL: Abdomen soft, non-tender, nondistended. Bowel Sounds normoactive x4.. MUSCULOSKELETAL: Extremities without clubbing, cyanosis, or edema. NEUROLOGICAL: Awake and alert. Oriented to person, confuse. Moves all extremities. Normal speech. 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 ICD Code: I60.8 - Other nontraumatic subarachnoid hemorrhage Status: Acute (2) Hypertension ICD Code: I10 - Essential (primary) hypertension Status: Chronic (3) Major neurocognitive disorder due to vascular disease, without behavioral disturbance, severe ICD Code: F01.50 - Vascular dementia without behavioral disturbance Status: Acute (4) Intracranial hemorrhage ICD Code: I62.9 - Nontraumatic intracranial hemorrhage, unspecified Status: Resolved (5) Major neurocognitive disorder as late effect of traumatic brain injury with behavioral disturbance ICD Code: S06.9X9S - Unspecified intracranial injury with loss of consciousness of unspecified duration, sequela; F02.81 - Dementia in other diseases classified elsewhere with behavioral disturbance Status: Acute (6) Encephalopathy ICD Code: G93.40 - Encephalopathy, unspecified Status: Acute (7) Acute respiratory failure with hypoxia and hypercarbia ICD Code: J96.01 - Acute respiratory failure with hypoxia; J96.02 - Acute respiratory failure with hypercapnia Status: Acute Assessment and Plan Mr. Nunez is a 51 year old male who was brought to the hospital as a trauma alert due to head injury after he fell in the bathroom and hit his head. Patient was unresponsive for approximately 15 minutes by the time ambulance services arrived. His mentation waxed and waned with GCS ranging from [address] head indicated subarachnoid hemorrhage, acute. Auditory hallucinations Visual hallucinations - Psychiatry consulted and recommends continued use of seroquel - Continues to have hallucinations but patients behavior has been much improved with seroquel use. - Continue to monitor with ADLs - Monitor for agitation and increased hallucinations. If increase hallucinations noted, will reconsult psychiatry. Intracranial hemorrhage, status post basilar artery coiling 10/05, Status post [employer] shunt on 11/24/2016 Chronic encephalopathy Hydrocephalus Cortical blindness - Neurology signed off. Neuropsychology following patient ultimately for discharge placement and assistance with recommendations. Per neuropsych note, ongoing areas of concern include behavioral impulsivity, lack of insight and judgement. - Speech therapy recommends regular diet with thin liquids, Patient is eating well. PEG dc'd 01/08/17. - Continue Seroquel 200mg BID per psychiatry - Continue with reorientation - Encourage daily activities Acute hypoxic hypercarbic respiratory failure, resolved - Tracheostomy 10/23/16, removed, old trach site healed. - Monitor respiratory status C. difficile colitis, resolved - Completed Flagyl on 10/23 - No diarrhea reported - off Lactinex DVT prophylaxis: SCDs, YOUSIF hose, Lovenox. Ambulation. GI prophylaxis: Protonix. Discussed with Patient and Dr. Robbins Discharge Planning Discharge planning ongoing. CM continues to address funding and placement issue. Pending SSI. May transfer to [place] when bed becomes available Problem Qualifiers (1) Hypertension: Tenzin Bronson Apr 04, 2017 10:54
[2017-04-04 12:11] VITALS: BP 121/79; PULSE 85; RESP 20; TEMP 97.7; O2SAT 93
[2017-04-04 15:52] VITALS: BP 124/77; PULSE 88; RESP 20; TEMP 97.4; O2SAT 94
[2017-04-04 20:50] VITALS: BP 120/77; PULSE 84; RESP 18; TEMP 97.9; O2SAT 99
[2017-04-04] MEDS: ACETAMINOPHEN 325 MG TAB PO PRN (20:54)
[2017-04-04] MEDS: diphenhydrAMINE HCL 50 MG CAP PO PRN (20:54)
[2017-04-04] MEDS: ENOXAPARIN SODIUM 40 MG/0.4 ML SYRINGE SQ SCH (20:55)
[2017-04-05 04:40] VITALS: BP 117/86; PULSE 85; RESP 18; TEMP 97.7; O2SAT 96
[2017-04-05] MEDS: LABETALOL HCL 100 MG TAB PO SCH ×3 (04:44→21:33)
[2017-04-05] MEDS: POTASSIUM CHLORIDE 20 MEQ CONTROLLED RELEASE TAB PO SCH (07:59)
[2017-04-05] MEDS: QUEtiapine FUMARATE 100 MG TAB PO SCH ×2 (07:59→11:41)
[2017-04-05] MEDS: PANTOPRAZOLE SOD 40 MG DELAYED RELEASE TAB PO SCH (07:59)
[2017-04-05] MEDS: LACTULOSE SYRUP 20 GM/30 ML CUP PO SCH (08:00)
[2017-04-05] MEDS: amLODIPine BESYLATE 5 MG TAB PO SCH (08:00)
[2017-04-05] MEDS: PRAVASTATIN SOD 40 MG TAB PO SCH (08:00)
[2017-04-05] MEDS: DOCUSATE SODIUM 50 MG/SENNA 8.6 MG TAB PO SCH ×2 (08:00→21:33)
[2017-04-05 08:07] VITALS: BP 139/90; PULSE 81; RESP 20; TEMP 97.7; O2SAT 95
[2017-04-05 08:38] VITALS: O2SAT 95
--- NOTE | 2017-04-05 09:36 | HHI.PR ---
Subjective Remarks Follow-up visit TBI, ICH, chronic encephalopathy. Patient seen and examined today sitting in chair. Rachel at the bedside. Patient states "IT is lousy in this place, but I took care of it." states "what did you do with IT? Did you kill IT." Patient responds "yes I did, that's what I meant when I said I took care of it." Denies any hallucinations. Denies pain and discomfort. Denies SOB/ dyspnea. Denies chest pain. Denies fevers, chills, n/v /d. Objective Vitals Vital Signs Date Time Temp Pulse Resp B/P (MAP) Pulse Ox O2 Delivery O2 Flow Rate FiO2 04/05/17 08:38 95 04/05/17 08:07 97.7 81 20 139/90 (106) 95 04/05/17 04:40 97.7 85 18 117/86 (96) 96 04/04/17 20:50 97.9 84 18 120/77 (91) 99 04/04/17 15:52 97.4 88 20 124/77 (93) 94 04/04/17 12:11 97.7 85 20 121/79 (93) 93 I/O 04/04/17 04/04/17 04/04/17 04/05/17 04/05/17 04/05/17 06:59 14:59 22:59 06:59 14:59 22:59 Intake Total 1800 ml 1200 ml Balance 1800 ml 1200 ml Intake Oral 1800 ml 1200 ml # Voids 1 4 3 # Bowel Movements 0 0 Imaging Last Impressions Chest X-Ray 02/18/17 0000 Signed Impressions: Service Date/Time: Saturday, February 18, 2017 10:51 - CONCLUSION: Diminished lung volumes. No infiltrate. Tyrese Raymond MD Abdomen X-Ray 02/18/17 0000 Signed Impressions: Service Date/Time: Saturday, February 18, 2017 10:56 - CONCLUSION: Unremarkable abdomen. Tyrese Raymond MD Gall Bladder Ultrasound 02/17/17 0000 Signed Impressions: Service Date/Time: Friday, February 17, 2017 17:45 - CONCLUSION: Mildly enlarged liver and small amount of gallbladder sludge. Tim Hammonds MD Head CT 12/09/16 0000 Signed Impressions: Service Date/Time: Friday, December 09, 2016 17:36 - CONCLUSION: 1. Right ventriculostomy tube remains in place with decrease in ventricular size since November 24. There is some encephalomalacia around the shunt and a probable small infarct in the left basal ganglia. No new hemorrhage or shift. Tip Harris MD Transcranial Doppler Study Complete 10/26/16 0700 Signed Impressions: Service Date/Time: Wednesday, October 26, 2016 08:20 - CONCLUSION: Minimal interval improvement with no evidence for vasospasm. Christian Song MD FACR Neck CTA 10/19/16 0000 Signed Impressions: Service Date/Time: Wednesday, October 19, 2016 14:19 - CONCLUSION: Negative for dissection or significant stenosis. Christian Song MD FACR Head CTA 10/19/16 0000 Signed Impressions: Service Date/Time: Wednesday, October 19, 2016 14:19 - CONCLUSION: 1. Interval development of significant vasospasm in the left MCA and SRI territories. 2. Mild vasospasm in the basilar artery.. Gume Mckeon MD Cerebral Arteriogram 10/19/16 0000 Signed Impressions: Service Date/Time: Wednesday, October 19, 2016 16:06 - CONCLUSION: 1. Vasospasm in the left MCA and SRI territories 2. Spasmolytic infusion, left internal carotid artery as above.. 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 Gume Mckeon MD Pelvis X-Ray 10/05/16109 Signed Impressions: Service Date/Time: Wednesday, October 05, 2016 01:22 - CONCLUSION: Unremarkable examination of the pelvis. Ruben Acuña Jr., MD Chest CT 10/05/16109 Signed Impressions: Service Date/Time: Wednesday, October 05, 2016 01:46 - CONCLUSION: 1. No acute intrathoracic abnormality. 2. Bibasilar atelectasis. 3. Cardiomegaly. 4. Prior granulomatous disease. Ruben Acuña Jr., MD Cervical Spine CT 10/05/16109 Signed Impressions: Service Date/Time: Wednesday, October 05, 2016 01:40 - CONCLUSION: 1. No fracture or dislocation. 2. Multilevel degenerative changes. Ruben Acuña Jr., MD Abdomen/Pelvis CT 10/05/16 0110 Signed Impressions: Service Date/Time: Wednesday, October 05, 2016 01:46 - CONCLUSION: 1. No acute trauma. 2. Rounded area of decreased density involving the pancreatic head. I cannot completely exclude pancreatic head mass. At some point MRI of the pancreas is suggested to further evaluate. 3. Focal area of poor enhancement involving the left kidney. This may relate to an area of parenchymal scarring. I cannot completely exclude a mass. This can be further assessed with MRI as well. Ruben Acuña Jr., MD Objective Remarks GENERAL: This is a well-nourished, well-developed patient, in no apparent distress. SKIN: Warm and dry. HEENT: Normocephalic. Nonicteric. No injection or drainage. Nose without bleeding. Airway patent. NECK: Trachea midline. Supple. CARDIOVASCULAR: Regular rate and rhythm without murmurs, gallops, or rubs. RESPIRATORY: Clear to auscultation. Breath sounds equal bilaterally. No wheezes , rales, or rhonchi. GASTROINTESTINAL: Abdomen soft, non-tender, nondistended. Bowel Sounds normoactive x4.. MUSCULOSKELETAL: Extremities without clubbing, cyanosis, or edema. NEUROLOGICAL: Awake and alert. Oriented to person, confuse, periods of hallucination. Moves all extremities. Normal speech. 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 ICD Code: I60.8 - Other nontraumatic subarachnoid hemorrhage Status: Acute (2) Hypertension ICD Code: I10 - Essential (primary) hypertension Status: Chronic (3) Major neurocognitive disorder due to vascular disease, without behavioral disturbance, severe ICD Code: F01.50 - Vascular dementia without behavioral disturbance Status: Acute (4) Intracranial hemorrhage ICD Code: I62.9 - Nontraumatic intracranial hemorrhage, unspecified Status: Resolved (5) Major neurocognitive disorder as late effect of traumatic brain injury with behavioral disturbance ICD Code: S06.9X9S - Unspecified intracranial injury with loss of consciousness of unspecified duration, sequela; F02.81 - Dementia in other diseases classified elsewhere with behavioral disturbance Status: Acute (6) Encephalopathy ICD Code: G93.40 - Encephalopathy, unspecified Status: Acute (7) Acute respiratory failure with hypoxia and hypercarbia ICD Code: J96.01 - Acute respiratory failure with hypoxia; J96.02 - Acute respiratory failure with hypercapnia Status: Acute Assessment and Plan Mr. Nunez is a 51 year old male who was brought to the hospital as a trauma alert due to head injury after he fell in the bathroom and hit his head. Patient was unresponsive for approximately 15 minutes by the time ambulance services arrived. His mentation waxed and waned with GCS ranging from [address] head indicated subarachnoid hemorrhage, acute. Auditory hallucinations Visual hallucinations - Psychiatry consulted and recommends continued use of seroquel - Continues to have hallucinations but patients behavior has been much improved with seroquel use. - Continue to monitor with ADLs - Monitor for agitation and increased hallucinations. If increase hallucinations noted, will reconsult psychiatry. 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 Neuropsychology following patient ultimately for discharge placement and assistance with recommendations. Per neuropsych note, ongoing areas of concern include behavioral impulsivity, lack of insight and judgement. - Speech therapy recommends regular diet with thin liquids, Patient is eating well. PEG dc'd 01/08/17. - Continue Seroquel 200mg BID per psychiatry - Continue with reorientation - Encourage daily activities Acute hypoxic hypercarbic respiratory failure, resolved - Tracheostomy 10/23/16, removed, old trach site healed. - Monitor respiratory status C. difficile colitis, resolved - Completed Flagyl on 10/23 - No diarrhea reported - off Lactinex DVT prophylaxis: SCDs, YOUSIF hose, Lovenox. Ambulation. GI prophylaxis: Protonix. Discussed with Patient and Dr. Robbins Discharge Planning Discharge planning ongoing. CM continues to address funding and placement issue. Pending SSI. May transfer to [place] when bed becomes available Problem Qualifiers (1) Hypertension: Tenzin Bronson Apr 05, 2017 09:36
[2017-04-05 12:05] VITALS: BP 141/86; PULSE 84; RESP 20; TEMP 98.1; O2SAT 95
[2017-04-05 16:08] VITALS: BP 136/86; PULSE 82; RESP 20; TEMP 98.9; O2SAT 96
[2017-04-05 20:00] VITALS: BP 113/70; PULSE 91; RESP 20; TEMP 98.5; O2SAT 92
[2017-04-05] MEDS: ENOXAPARIN SODIUM 40 MG/0.4 ML SYRINGE SQ SCH (21:34)
[2017-04-06] MEDS: LABETALOL HCL 100 MG TAB PO SCH ×3 (03:09→22:01)
[2017-04-06 04:00] VITALS: BP 127/76; PULSE 84; RESP 18; TEMP 98.3; O2SAT 94
[2017-04-06 08:00] VITALS: BP 140/72; PULSE 79; RESP 20; TEMP 98.4; O2SAT 94
[2017-04-06] MEDS: DOCUSATE SODIUM 50 MG/SENNA 8.6 MG TAB PO SCH ×2 (08:56→22:01)
[2017-04-06] MEDS: PRAVASTATIN SOD 40 MG TAB PO SCH (08:56)
[2017-04-06] MEDS: amLODIPine BESYLATE 5 MG TAB PO SCH (08:56)
[2017-04-06] MEDS: QUEtiapine FUMARATE 100 MG TAB PO SCH ×2 (08:56→11:33)
[2017-04-06] MEDS: POTASSIUM CHLORIDE 20 MEQ CONTROLLED RELEASE TAB PO SCH (08:56)
[2017-04-06] MEDS: PANTOPRAZOLE SOD 40 MG DELAYED RELEASE TAB PO SCH (08:56)
[2017-04-06] MEDS: LACTULOSE SYRUP 20 GM/30 ML CUP PO SCH (08:57)
--- NOTE | 2017-04-06 09:51 | HHI.PR ---
Subjective Remarks Follow-up visit TBI, ICH, chronic encephalopathy. Patient seen and examined todaylaying in bed. 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 Denies pain and discomfort. Denies SOB/ dyspnea. Denies chest pain. Denies fevers, chills, n/v/d. Objective Vitals Vital Signs Date Time Temp Pulse Resp B/P (MAP) Pulse Ox O2 Delivery O2 Flow Rate FiO2 04/06/17 08:00 98.4 79 20 140/72 (94) 94 04/06/17 04:00 98.3 84 18 127/76 (93) 94 04/05/17 20:00 98.5 91 20 113/70 (84) 92 04/05/17 16:08 98.9 82 20 136/86 (103) 96 04/05/17 12:05 98.1 84 20 141/86 (104) 95 I/O 04/05/17 04/05/17 04/05/17 04/06/17 04/06/17 04/06/17 07:00 15:00 23:00 07:00 15:00 23:00 Intake Total 1200 ml 720 ml 0 ml Balance 1200 ml 720 ml 0 ml Intake Oral 1200 ml 720 ml IV Total 0 ml # Voids 3 2 4 # Bowel Movements 0 Imaging Last Impressions Chest X-Ray 02/18/17 0000 Signed Impressions: Service Date/Time: Saturday, February 18, 2017 10:51 - CONCLUSION: Diminished lung volumes. No infiltrate. Tyrese Raymond MD Abdomen X-Ray 02/18/17 0000 Signed Impressions: Service Date/Time: Saturday, February 18, 2017 10:56 - CONCLUSION: Unremarkable abdomen. Tyrese Raymond MD Gall Bladder Ultrasound 02/17/17 0000 Signed Impressions: Service Date/Time: Friday, February 17, 2017 17:45 - CONCLUSION: Mildly enlarged liver and small amount of gallbladder sludge. Tim Hammonds MD Head CT 12/09/16 0000 Signed Impressions: Service Date/Time: Friday, December 09, 2016 17:36 - CONCLUSION: 1. Right ventriculostomy tube remains in place with decrease in ventricular size since May 25. There is some encephalomalacia around the shunt and a probable small infarct in the left basal ganglia. No new hemorrhage or shift. Tip Harris MD Transcranial Doppler Study Complete 10/26/16 0700 Signed Impressions: Service Date/Time: Wednesday, October 26, 2016 08:20 - CONCLUSION: Minimal interval improvement with no evidence for vasospasm. Christian Song MD FACR Neck CTA 10/19/16 0000 Signed Impressions: Service Date/Time: Wednesday, October 19, 2016 14:19 - CONCLUSION: Negative for dissection or significant stenosis. Christian Song MD FACR Head CTA 10/19/16 0000 Signed Impressions: Service Date/Time: Wednesday, October 19, 2016 14:19 - CONCLUSION: 1. Interval development of significant vasospasm in the left MCA and SRI territories. 2. Mild vasospasm in the basilar artery.. Gume Mckeon MD Cerebral Arteriogram 10/19/16 0000 Signed Impressions: Service Date/Time: Wednesday, October 19, 2016 16:06 - CONCLUSION: 1. Vasospasm in the left MCA and SRI territories 2. Spasmolytic infusion, left internal carotid artery as above.. 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 Gume Mckeon MD Pelvis X-Ray 10/05/16109 Signed Impressions: Service Date/Time: Wednesday, October 05, 2016 01:22 - CONCLUSION: Unremarkable examination of the pelvis. Ruben Acuña Jr., MD Chest CT 10/05/16109 Signed Impressions: Service Date/Time: Wednesday, October 05, 2016 01:46 - CONCLUSION: 1. No acute intrathoracic abnormality. 2. Bibasilar atelectasis. 3. Cardiomegaly. 4. Prior granulomatous disease. Ruben Acuña Jr., MD Cervical Spine CT 10/05/16109 Signed Impressions: Service Date/Time: Wednesday, October 05, 2016 01:40 - CONCLUSION: 1. No fracture or dislocation. 2. Multilevel degenerative changes. Ruben Acuña Jr., MD Abdomen/Pelvis CT 10/05/16109 Signed Impressions: Service Date/Time: Wednesday, October 05, 2016 01:46 - CONCLUSION: 1. No acute trauma. 2. Rounded area of decreased density involving the pancreatic head. I cannot completely exclude pancreatic head mass. At some point MRI of the pancreas is suggested to further evaluate. 3. Focal area of poor enhancement involving the left kidney. This may relate to an area of parenchymal scarring. I cannot completely exclude a mass. This can be further assessed with MRI as well. Ruben Acuña Jr., MD Objective Remarks GENERAL: This is a well-nourished, well-developed patient, in no apparent distress. SKIN: Warm and dry. HEENT: Normocephalic. Nonicteric. No injection or drainage. Nose without bleeding. Airway patent. NECK: Trachea midline. Supple. CARDIOVASCULAR: Regular rate and rhythm without murmurs, gallops, or rubs. RESPIRATORY: Clear to auscultation. Breath sounds equal bilaterally. No wheezes , rales, or rhonchi. GASTROINTESTINAL: Abdomen soft, non-tender, nondistended. Bowel Sounds normoactive x4.. MUSCULOSKELETAL: Extremities without clubbing, cyanosis, or edema. NEUROLOGICAL: Awake and alert. Oriented to person, confuse, periods of hallucination. Moves all extremities. Normal speech. 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 ICD Code: I60.8 - Other nontraumatic subarachnoid hemorrhage Status: Acute (2) Hypertension ICD Code: I10 - Essential (primary) hypertension Status: Chronic (3) Major neurocognitive disorder due to vascular disease, without behavioral disturbance, severe ICD Code: F01.50 - Vascular dementia without behavioral disturbance Status: Acute (4) Intracranial hemorrhage ICD Code: I62.9 - Nontraumatic intracranial hemorrhage, unspecified Status: Resolved (5) Major neurocognitive disorder as late effect of traumatic brain injury with behavioral disturbance ICD Code: S06.9X9S - Unspecified intracranial injury with loss of consciousness of unspecified duration, sequela; F02.81 - Dementia in other diseases classified elsewhere with behavioral disturbance Status: Acute (6) Encephalopathy ICD Code: G93.40 - Encephalopathy, unspecified Status: Acute (7) Acute respiratory failure with hypoxia and hypercarbia ICD Code: J96.01 - Acute respiratory failure with hypoxia; J96.02 - Acute respiratory failure with hypercapnia Status: Acute Assessment and Plan Mr. Nunez is a 51 year old male who was brought to the hospital as a trauma alert due to head injury after he fell in the bathroom and hit his head. Patient was unresponsive for approximately 15 minutes by the time ambulance services arrived. His mentation waxed and waned with GCS ranging from [address] head indicated subarachnoid hemorrhage, acute. Auditory hallucinations Visual hallucinations - Psychiatry consulted and recommends continued use of seroquel - Continues to have hallucinations but patients behavior has been much improved with seroquel use. - Continue to monitor with ADLs - Monitor for agitation and increased hallucinations. If increase hallucinations noted, will reconsult psychiatry. 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 Neuropsychology following patient ultimately for discharge placement and assistance with recommendations. Per neuropsych note, ongoing areas of concern include behavioral impulsivity, lack of insight and judgement. - Speech therapy recommends regular diet with thin liquids, Patient is eating well. PEG dc'd 01/08/17. - Continue Seroquel 200mg BID per psychiatry - Continue with reorientation - Encourage daily activities Acute hypoxic hypercarbic respiratory failure, resolved - Tracheostomy 10/23/16, removed, old trach site healed. - Monitor respiratory status C. difficile colitis, resolved - Completed Flagyl on 10/23 - No diarrhea reported - off Lactinex DVT prophylaxis: SCDs, YOUSIF hose, Lovenox. Ambulation. GI prophylaxis: Protonix. Discussed with Patient and Dr. Robbins Discharge Planning Discharge planning ongoing. CM continues to address funding and placement issue. Pending SSI. May transfer to [place] when bed becomes available Problem Qualifiers (1) Hypertension: Tenzin Bronson Apr 06, 2017 09:51
[2017-04-06 12:10] VITALS: BP 127/84; PULSE 81; RESP 20; TEMP 98.1; O2SAT 97
[2017-04-06 16:00] VITALS: BP 135/79; PULSE 102; RESP 20; TEMP 98.6; O2SAT 97
[2017-04-06 20:00] VITALS: BP 116/71; PULSE 102; RESP 18; TEMP 98.2; O2SAT 94
[2017-04-06] MEDS: ENOXAPARIN SODIUM 40 MG/0.4 ML SYRINGE SQ SCH (22:05)
[2017-04-07 04:00] VITALS: BP 124/69; PULSE 81; RESP 18; TEMP 97.2; O2SAT 92
[2017-04-07] MEDS: LABETALOL HCL 100 MG TAB PO SCH ×3 (05:17→20:17)
[2017-04-07 07:54] VITALS: BP 115/84; PULSE 90; RESP 18; TEMP 97.8; O2SAT 94
[2017-04-07] MEDS: LACTULOSE SYRUP 20 GM/30 ML CUP PO SCH (08:47)
[2017-04-07] MEDS: POTASSIUM CHLORIDE 20 MEQ CONTROLLED RELEASE TAB PO SCH (08:47)
[2017-04-07] MEDS: PRAVASTATIN SOD 40 MG TAB PO SCH (08:48)
[2017-04-07] MEDS: DOCUSATE SODIUM 50 MG/SENNA 8.6 MG TAB PO SCH ×2 (08:48→20:17)
[2017-04-07] MEDS: QUEtiapine FUMARATE 100 MG TAB PO SCH ×2 (08:48→12:37)
[2017-04-07] MEDS: PANTOPRAZOLE SOD 40 MG DELAYED RELEASE TAB PO SCH (08:48)
[2017-04-07] MEDS: amLODIPine BESYLATE 5 MG TAB PO SCH (08:49)
--- NOTE | 2017-04-07 10:56 | HHI.PR ---
Subjective Remarks Follow-up visit TBI, ICH, chronic encephalopathy. Patient seen and examined today laying in bed. States "everything is going, nothing new." Denies pain and discomfort. Denies SOB/ dyspnea. Denies chest pain, palpitations, headaches, dizziness. Denies fevers, chills, n/v/d. Denies dysuria. Objective Vitals Vital Signs Date Time Temp Pulse Resp B/P (MAP) Pulse Ox O2 Delivery O2 Flow Rate FiO2 04/07/17 07:54 97.8 90 18 115/84 (94) 94 04/07/17 04:00 97.2 81 18 124/69 (87) 92 04/06/17 20:00 98.2 102 18 116/71 (86) 94 04/06/17 17:11 04/06/17 16:00 98.6 102 20 135/79 (97) 97 04/06/17 12:10 98.1 81 20 127/84 (98) 97 I/O 04/06/17 04/06/17 04/06/17 04/07/17 04/07/17 04/07/17 07:00 15:00 23:00 07:00 15:00 23:00 Intake Total 720 ml Balance 720 ml Intake Oral 720 ml IV Total 0 ml # Voids 4 3 3 # Bowel Movements 1 Imaging Last Impressions Chest X-Ray 02/18/17 0000 Signed Impressions: Service Date/Time: Saturday, February 18, 2017 10:51 - CONCLUSION: Diminished lung volumes. No infiltrate. Tryese Raymond MD Abdomen X-Ray 02/18/17 0000 Signed Impressions: Service Date/Time: Saturday, February 18, 2017 10:56 - CONCLUSION: Unremarkable abdomen. Tyrese Raymond MD Gall Bladder Ultrasound 02/17/17 0000 Signed Impressions: Service Date/Time: Friday, February 17, 2017 17:45 - CONCLUSION: Mildly enlarged liver and small amount of gallbladder sludge. Tim Hammonds MD Head CT 12/09/16 0000 Signed Impressions: Service Date/Time: Friday, December 09, 2016 17:36 - CONCLUSION: 1. Right ventriculostomy tube remains in place with decrease in ventricular size since November 24. There is some encephalomalacia around the shunt and a probable small infarct in the left basal ganglia. No new hemorrhage or shift. Tip Harris MD Transcranial Doppler Study Complete 10/26/16 0700 Signed Impressions: Service Date/Time: Wednesday, October 26, 2016 08:20 - CONCLUSION: Minimal interval improvement with no evidence for vasospasm. Christian Song MD FACR Neck CTA 10/19/16 0000 Signed Impressions: Service Date/Time: Wednesday, October 19, 2016 14:19 - CONCLUSION: Negative for dissection or significant stenosis. Christian Song MD FACR Head CTA 10/19/16 0000 Signed Impressions: Service Date/Time: Wednesday, October 19, 2016 14:19 - CONCLUSION: 1. Interval development of significant vasospasm in the left MCA and SRI territories. 2. Mild vasospasm in the basilar artery.. Gume Mckeon MD Cerebral Arteriogram 10/19/16 0000 Signed Impressions: Service Date/Time: Wednesday, October 19, 2016 16:06 - CONCLUSION: 1. Vasospasm in the left MCA and SRI territories 2. Spasmolytic infusion, left internal carotid artery as above.. 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 Gume Mckeon MD Pelvis X-Ray 10/05/16109 Signed Impressions: Service Date/Time: Wednesday, October 05, 2016 01:22 - CONCLUSION: Unremarkable examination of the pelvis. Ruben Acuña Jr., MD Chest CT 10/05/16109 Signed Impressions: Service Date/Time: Wednesday, October 05, 2016 01:46 - CONCLUSION: 1. No acute intrathoracic abnormality. 2. Bibasilar atelectasis. 3. Cardiomegaly. 4. Prior granulomatous disease. Ruben Acuña Jr., MD Cervical Spine CT 10/05/16109 Signed Impressions: Service Date/Time: Wednesday, October 05, 2016 01:40 - CONCLUSION: 1. No fracture or dislocation. 2. Multilevel degenerative changes. Ruben Acuña Jr., MD Abdomen/Pelvis CT 10/05/16109 Signed Impressions: Service Date/Time: Wednesday, October 05, 2016 01:46 - CONCLUSION: 1. No acute trauma. 2. Rounded area of decreased density involving the pancreatic head. I cannot completely exclude pancreatic head mass. At some point MRI of the pancreas is suggested to further evaluate. 3. Focal area of poor enhancement involving the left kidney. This may relate to an area of parenchymal scarring. I cannot completely exclude a mass. This can be further assessed with MRI as well. Ruben Acuña Jr., MD Objective Remarks GENERAL: This is a well-nourished, well-developed patient, in no apparent distress. SKIN: Warm and dry. HEENT: Normocephalic. Nonicteric. No injection or drainage. Nose without bleeding. Airway patent. NECK: Trachea midline. Supple. CARDIOVASCULAR: Regular rate and rhythm without murmurs, gallops, or rubs. RESPIRATORY: Clear to auscultation. Breath sounds equal bilaterally. No wheezes , rales, or rhonchi. GASTROINTESTINAL: Abdomen soft, non-tender, nondistended. Bowel Sounds normoactive x4.. MUSCULOSKELETAL: Extremities without clubbing, cyanosis, or edema. NEUROLOGICAL: Awake and alert. Oriented to person, confuse, periods of hallucination. Moves all extremities. Normal speech. 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 ICD Code: I60.8 - Other nontraumatic subarachnoid hemorrhage Status: Acute (2) Hypertension ICD Code: I10 - Essential (primary) hypertension Status: Chronic (3) Major neurocognitive disorder due to vascular disease, without behavioral disturbance, severe ICD Code: F01.50 - Vascular dementia without behavioral disturbance Status: Acute (4) Intracranial hemorrhage ICD Code: I62.9 - Nontraumatic intracranial hemorrhage, unspecified Status: Resolved (5) Major neurocognitive disorder as late effect of traumatic brain injury with behavioral disturbance ICD Code: S06.9X9S - Unspecified intracranial injury with loss of consciousness of unspecified duration, sequela; F02.81 - Dementia in other diseases classified elsewhere with behavioral disturbance Status: Acute (6) Encephalopathy ICD Code: G93.40 - Encephalopathy, unspecified Status: Acute (7) Acute respiratory failure with hypoxia and hypercarbia ICD Code: J96.01 - Acute respiratory failure with hypoxia; J96.02 - Acute respiratory failure with hypercapnia Status: Acute Assessment and Plan Mr. Nunez is a 51 year old male who was brought to the hospital as a trauma alert due to head injury after he fell in the bathroom and hit his head. Patient was unresponsive for approximately 15 minutes by the time ambulance services arrived. His mentation waxed and waned with GCS ranging from [address] head indicated subarachnoid hemorrhage, acute. Auditory hallucinations Visual hallucinations - Psychiatry consulted and recommends continued use of seroquel - Continues to have hallucinations but patients behavior has been much improved with seroquel use. - Continue to monitor with ADLs - Monitor for agitation and increased hallucinations. If increase hallucinations noted, will reconsult psychiatry. Intracranial hemorrhage, status post basilar artery coiling 10/05, Status post PRECISION INSTRUMENT MAKER shunt on 11/24/2016 Chronic encephalopathy Hydrocephalus Cortical blindness - Neurology signed off. Neuropsychology following patient ultimately for discharge placement and assistance with recommendations. Per neuropsych note, ongoing areas of concern include behavioral impulsivity, lack of insight and judgement. - Speech therapy recommends regular diet with thin liquids, Patient is eating well. PEG dc'd 01/08/17. - Continue Seroquel 200mg BID per psychiatry - Continue with reorientation - Encourage daily activities Acute hypoxic hypercarbic respiratory failure, resolved - Tracheostomy 10/23/16, removed, old trach site healed. - Monitor respiratory status C. difficile colitis, resolved - Completed Flagyl on 10/23 - No diarrhea reported - off Lactinex DVT prophylaxis: Lovenox. Ambulation. GI prophylaxis: Protonix. Discussed with Patient and Dr. Robbins Discharge Planning Discharge planning ongoing. CM continues to address funding and placement issue. Pending SSI. May transfer to [place] when bed becomes available Problem Qualifiers (1) Hypertension: Tenzin Bronson Apr 07, 2017 10:56
[2017-04-07 11:55] VITALS: BP 135/83; PULSE 106; RESP 20; TEMP 98.2; O2SAT 93
[2017-04-07 16:00] VITALS: BP 110/63; PULSE 117; RESP 20; TEMP 97.4; O2SAT 95
[2017-04-07] MEDS: ENOXAPARIN SODIUM 40 MG/0.4 ML SYRINGE SQ SCH (20:18)
[2017-04-07 21:05] VITALS: BP 113/68; PULSE 94; RESP 18; TEMP 97.6; O2SAT 90
[2017-04-07] MEDS: diphenhydrAMINE HCL 50 MG CAP PO PRN (22:44)
[2017-04-08 04:00] VITALS: BP 111/75; PULSE 73; RESP 18; TEMP 97.7; O2SAT 94
[2017-04-08] MEDS: LABETALOL HCL 100 MG TAB PO SCH ×3 (04:51→20:00)
[2017-04-08 08:00] VITALS: BP 133/80; PULSE 75; RESP 17; TEMP 97.6; O2SAT 96
[2017-04-08] MEDS: LACTULOSE SYRUP 20 GM/30 ML CUP PO SCH (09:00)
[2017-04-08] MEDS: DOCUSATE SODIUM 50 MG/SENNA 8.6 MG TAB PO SCH ×2 (09:40→21:00)
[2017-04-08] MEDS: PANTOPRAZOLE SOD 40 MG DELAYED RELEASE TAB PO SCH (09:40)
[2017-04-08] MEDS: amLODIPine BESYLATE 5 MG TAB PO SCH (09:40)
[2017-04-08] MEDS: POTASSIUM CHLORIDE 20 MEQ CONTROLLED RELEASE TAB PO SCH (09:41)
[2017-04-08] MEDS: PRAVASTATIN SOD 40 MG TAB PO SCH (09:41)
[2017-04-08] MEDS: QUEtiapine FUMARATE 100 MG TAB PO SCH ×2 (09:41→12:00)
--- NOTE | 2017-04-08 10:45 | HHI.PR ---
Subjective Remarks Follow up on patient with intracranial hemorrhage, basilar tip aneurysm s/p SENIOR UNDERWRITING ASSISTANT shunt. Stable denied any pain. Stable in his bedroom, discussed with Windows Server Support Technician, no new issues, no nausea, vomit or diarrhea Objective Vital Signs Date Time Temp Pulse Resp B/P (MAP) Pulse Ox O2 Delivery O2 Flow Rate FiO2 04/08/17 08:00 97.6 75 17 133/80 (97) 96 04/08/17 04:00 97.7 73 18 111/75 (87) 94 04/07/17 21:05 97.6 94 18 113/68 (83) 90 04/07/17 16:00 97.4 117 20 110/63 (79) 95 04/07/17 11:55 98.2 106 20 135/83 (100) 93 I/O 04/07/17 04/07/17 04/07/17 04/08/17 04/08/17 04/08/17 07:00 15:00 23:00 07:00 15:00 23:00 # Voids 3 3 3 # Bowel Movements 1 Imaging Last Impressions Chest X-Ray 02/18/17 0000 Signed Impressions: Service Date/Time: Saturday, February 18, 2017 10:51 - CONCLUSION: Diminished lung volumes. No infiltrate. Tyrese Raymond MD Abdomen X-Ray 02/18/17 0000 Signed Impressions: Service Date/Time: Saturday, February 18, 2017 10:56 - CONCLUSION: Unremarkable abdomen. Tyrese Raymond MD Gall Bladder Ultrasound 02/17/17 0000 Signed Impressions: Service Date/Time: Friday, February 17, 2017 17:45 - CONCLUSION: Mildly enlarged liver and small amount of gallbladder sludge. Tim Hammonds MD Head CT 12/09/16 0000 Signed Impressions: Service Date/Time: Friday, December 09, 2016 17:36 - CONCLUSION: 1. Right ventriculostomy tube remains in place with decrease in ventricular size since November 24. There is some encephalomalacia around the shunt and a probable small infarct in the left basal ganglia. No new hemorrhage or shift. Tip Harris MD Transcranial Doppler Study Complete 10/26/16 0700 Signed Impressions: Service Date/Time: Wednesday, October 26, 2016 08:20 - CONCLUSION: Minimal interval improvement with no evidence for vasospasm. Christian Song MD FACR Neck CTA 10/19/16 0000 Signed Impressions: Service Date/Time: Wednesday, October 19, 2016 14:19 - CONCLUSION: Negative for dissection or significant stenosis. Christian Song MD FACR Head CTA 10/19/16 0000 Signed Impressions: Service Date/Time: Wednesday, October 19, 2016 14:19 - CONCLUSION: 1. Interval development of significant vasospasm in the left MCA and SRI territories. 2. Mild vasospasm in the basilar artery.. Gume Mckeon MD Cerebral Arteriogram 10/19/16 0000 Signed Impressions: Service Date/Time: Wednesday, October 19, 2016 16:06 - CONCLUSION: 1. Vasospasm in the left MCA and SRI territories 2. Spasmolytic infusion, left internal carotid artery as above.. 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 Gume Mckeon MD Pelvis X-Ray 10/05/16109 Signed Impressions: Service Date/Time: Wednesday, October 05, 2016 01:22 - CONCLUSION: Unremarkable examination of the pelvis. Ruben Acuña Jr., MD Chest CT 10/05/16109 Signed Impressions: Service Date/Time: Wednesday, October 05, 2016 01:46 - CONCLUSION: 1. No acute intrathoracic abnormality. 2. Bibasilar atelectasis. 3. Cardiomegaly. 4. Prior granulomatous disease. Ruben Acuña Jr., MD Cervical Spine CT 10/05/16109 Signed Impressions: Service Date/Time: Wednesday, October 05, 2016 01:40 - CONCLUSION: 1. No fracture or dislocation. 2. Multilevel degenerative changes. Ruben Acuña Jr., MD Abdomen/Pelvis CT 10/05/16109 Signed Impressions: Service Date/Time: Wednesday, October 05, 2016 01:46 - CONCLUSION: 1. No acute trauma. 2. Rounded area of decreased density involving the pancreatic head. I cannot completely exclude pancreatic head mass. At some point MRI of the pancreas is suggested to further evaluate. 3. Focal area of poor enhancement involving the left kidney. This may relate to an area of parenchymal scarring. I cannot completely exclude a mass. This can be further assessed with MRI as well. Ruben Acuña Jr., MD Procedures 10/05/16 right frontal twist drill for ventriculostomy placement 10/20/16 arterial line placement 10/23/16 bedside percutaneous tracheostomy under direct bronchoscopic visualization 10/24/16 PEG tube placement at bedside Other Results Laboratory Tests Test 10/05/16 00:15 10/05/16 02:45 10/05/16 17:15 10/06/16 03:45 Bedside Hemoglobin 15.6 G/DL Bedside Hematocrit 46.0 % Eosinophils % 5 % Basophils % 2 % Atypical Lymphocytes % Activated Partial Thromboplast Time 21.0 SEC Fibrinogen 249 mg/dL Bedside Sodium 146 MMOL/L Bedside Potassium 4.4 MMOL/L Bedside Chloride 105 MMOL/L Bedside Blood Urea Nitrogen 30 MG/DL Bedside Creatinine 1.3 MG/DL Bedside Glucose 145 MG/DL Ethyl Alcohol Level LESS THAN 3 MG/DL Nasal Screen MRSA (PCR) NEGATIVE Urine Opiates Screen NEG Urine Barbiturates Screen NEG Urine Amphetamines Screen NEG Urine Benzodiazepines Screen NEG Urine Cocaine Screen NEG Urine Cannabinoids Screen NEG Blood Gas Puncture Site ART LINE Blood Gas Patient Temperature 98.6 Blood Gas HCO3 23 mmol/L Blood Gas Base Excess -1.0 mmol/L Blood Gas Oxygen Saturation 98 % Arterial Blood pH 7.40 Arterial Blood Partial Pressure CO2 38 mmHg Arterial Blood Partial Pressure O2 235 mmHg Arterial Blood Oxygen Content 17.9 Vol % Arterial Blood Carboxyhemoglobin 1.1 % Arterial Blood Methemoglobin 1.0 % Blood Gas Hemoglobin 12.7 G/DL Oxygen Delivery Device VENTILATOR Blood Gas Ventilator Setting AC/RR14/VT700/[id number] Blood Gas Inspired Oxygen 80 % Prothrombin Time 10.9 SEC Prothromb Time International Ratio 1.0 RATIO Lactic Acid Level 1.1 mmol/L Test 10/12/16 01:45 10/12/16 04:45 10/14/16 05:15 10/20/16 12:55 Urine WBC Clumps MANY Differential Total Cells Counted 100 Neutrophils % (Manual) 77 % Band Neutrophils % 16 % Lymphocytes % 5 % Monocytes % 2 % Neutrophils # (Manual) 22.6 TH/MM3 Platelet Estimate NORMAL Platelet Morphology Comment NORMAL Red Cell Morphology Comment NORMAL Random Vancomycin Level 7.4 COMMENT Urine Squamous Epithelial Cells <1 /hpf Test 10/21/16 09:20 10/25/16 11:10 11/06/16 20:00 11/08/16 04:45 CSF Volume (Tube 1) 9.0 ML CSF Supernatant Color (tube 1) CLEAR CSF Gross Blood (Tube 1) TRACE CSF WBC (Tube 1) 4 /MM3 CSF RBC (Tube 1) 112 /MM3 CSF Neutrophils 10 % CSF Lymphocytes 60 % CSF Monocytes 30 % CSF Glucose 112 MG/DL CSF Total Protein 28.8 MG/DL Urine Osmolality 290 MOSM/KG Urine Random Sodium 119 MEQ/L Serum Osmolality 303 MOSM/KG Blood Urea Nitrogen 16 MG/DL 10 MG/DL Creatinine 0.71 MG/DL 0.69 MG/DL Random Glucose 127 MG/DL 100 MG/DL Total Protein 6.6 GM/DL Albumin 2.3 GM/DL Calcium Level 7.8 MG/DL 8.2 MG/DL Magnesium Level 2.3 MG/DL 2.0 MG/DL Uric Acid 2.5 MG/DL Alkaline Phosphatase 67 U/L Aspartate Amino Transf (AST/SGOT) 28 U/L Alanine Aminotransferase (ALT/SGPT) 67 U/L Total Bilirubin 0.5 MG/DL Sodium Level 147 MEQ/L 148 MEQ/L Potassium Level 3.4 MEQ/L 3.7 MEQ/L Chloride Level 112 MEQ/L 114 MEQ/L Carbon Dioxide Level 26.0 MEQ/L 27.1 MEQ/L Protein Corrected Calcium 7.8 MG/DL Ovalocytes 1+ Acanthocytes OCC Phosphorus Level 3.0 MG/DL Test 11/14/16 06:00 11/17/16 08:11 01/18/17 18:19 01/20/17 09:35 Urine Transitional Epithelial Cells <1 /hpf Urine Calcium Oxalate Crystals RARE /hpf Urine Bacteria RARE /hpf Urine Hyaline Casts 11 /lpf Stool C. difficile Toxin (PCR) NEGATIVE Stl C. difficile Toxin Epiderm 027 PRESUMPTIVE NEGATIVE Ammonia 26 MCMOL/L Urine Mucus FEW /lpf Test 02/06/17 08:20 02/17/17 09:45 02/17/17 18:04 02/18/17 17:10 Levetiracetam (Keppra) Level <2.0 mcg/mL Urine Color LIGHT-YELLOW Urine Turbidity CLEAR Urine pH 6.5 Urine Specific [place] 1.009 Urine Protein NEG mg/dL Urine Glucose (UA) NEG mg/dL Urine Ketones NEG mg/dL Urine Occult Blood NEG Urine Nitrite NEG Urine Bilirubin NEG Urine Urobilinogen LESS THAN 2.0 MG/DL Urine Leukocyte Esterase NEG Urine RBC LESS THAN 1 /hpf Urine WBC 1 /hpf Microscopic Urinalysis Comment CULT NOT INDICATED Blood Urea Nitrogen 18 MG/DL Creatinine 1.17 MG/DL Random Glucose 81 MG/DL Total Protein 7.1 GM/DL Albumin 3.6 GM/DL Calcium Level 8.5 MG/DL Alkaline Phosphatase 58 U/L Aspartate Amino Transf (AST/SGOT) 11 U/L Alanine Aminotransferase (ALT/SGPT) 24 U/L Total Bilirubin 0.4 MG/DL Sodium Level 141 MEQ/L Potassium Level 4.1 MEQ/L Chloride Level 110 MEQ/L Carbon Dioxide Level 24.8 MEQ/L Lipase 85 U/L Troponin I LESS THAN 0.02 NG/ML Test 03/08/17 08:58 03/29/17 11:00 Blood Urea Nitrogen 16 MG/DL 18 MG/DL Creatinine 1.30 MG/DL 1.27 MG/DL Random Glucose 120 MG/DL 100 MG/DL Calcium Level 9.0 MG/DL 8.9 MG/DL Magnesium Level 2.2 MG/DL Sodium Level 143 MEQ/L 145 MEQ/L Potassium Level 4.0 MEQ/L 4.1 MEQ/L Chloride Level 109 MEQ/L 111 MEQ/L Carbon Dioxide Level 27.0 MEQ/L 28.0 MEQ/L White Blood Count 6.2 TH/MM3 Red Blood Count 4.71 MIL/MM3 Hemoglobin 13.9 GM/DL Hematocrit 41.4 % Mean Corpuscular Volume 87.8 FL Mean Corpuscular Hemoglobin 29.6 PG Mean Corpuscular Hemoglobin Concent 33.7 % Red Cell Distribution Width 14.3 % Platelet Count 183 TH/MM3 Mean Platelet Volume 9.2 FL Neutrophils (%) (Auto) 63.6 % Lymphocytes (%) (Auto) 23.0 % Monocytes (%) (Auto) 9.3 % Eosinophils (%) (Auto) 2.9 % Basophils (%) (Auto) 1.2 % Neutrophils # (Auto) 4.0 TH/MM3 Lymphocytes # (Auto) 1.4 TH/MM3 Monocytes # (Auto) 0.6 TH/MM3 Eosinophils # (Auto) 0.2 TH/MM3 Basophils # (Auto) 0.1 TH/MM3 CBC Comment DIFF FINAL Differential Comment Anion Gap 6 MEQ/L Estimat Glomerular Filtration Rate 60 ML/MIN Objective Remarks GENERAL: Well-nourished, well-developed male patient, in no apparent distress. Awake and alert. Sitting up at nurses station. Appears comfortable. SKIN: No rash. Warm and dry. HEENT: Normocephalic. Extraocular motions intact. No scleral icterus. No injection or drainage. Nose without bleeding. MMM. Airway patent. NECK: Trachea midline. Supple. CARDIOVASCULAR: RRR. No murmur appreciated. RESPIRATORY: Nonlabored. Clear to auscultation. Breath sounds equal bilaterally. No wheezes, rales, or rhonchi. GASTROINTESTINAL: Abdomen soft, nondistended and nontender. BS x 4. MUSCULOSKELETAL: Extremities without clubbing, cyanosis, or edema. NEUROLOGICAL: Awake and alert. Oriented to self only. Moves all 4 extremities spontaneously. Motor and sensory function grossly intact. Normal speech. Medications and IVs Current Medications Medications (Trade) Dose Ordered Sig/Nava Route Start Time Stop Time Status Last Admin (Tylenol) 650 mg Q6H PRN PO 10/05/16 02:45 04/04/17 20:54 (Zofran Inj) 4 mg Q6H PRN IV 10/05/16 02:45 11/27/16 23:26 Miscellaneous Information 1 Q361D XX 10/05/16 02:45 10/05/16 02:45 (Pravachol) 40 mg DAILY PO 10/05/16 09:00 04/08/17 09:41 (Lovenox Inj) 40 mg Q24H SQ 10/23/16 21:00 Future hold 04/07/17 20:18 (Trandate) 100 mg Q8H PO 11/03/16 20:00 04/08/17 04:51 (Norvasc) 5 mg DAILY PO 11/04/16 09:00 04/08/17 09:40 (Imodium) 2 mg UNSCH PRN PO 11/09/16 09:45 11/29/16 12:57 (Lomotil Tab) 1 tab Q6H PRN PO 11/09/16 09:45 (Lactulose Liq) 30 ml QID PRN PO 12/09/16 13:45 (Protonix) 40 mg DAILY PO 12/16/16 09:00 04/08/17 09:40 (Benadryl) 50 mg Q6H PRN PO 12/20/16 17:45 04/07/17 22:44 (Colace) 100 mg Q12H PRN PO 02/12/17 00:15 (Duoneb Neb) 1 ampule Q4HR NEB PRN INH 02/12/17 12:00 (KCl) 40 meq DAILY PO 02/13/17 09:00 04/08/17 09:41 (Tonie-Colace) 1 tab BID PO 02/18/17 09:30 04/08/17 09:40 (SEROquel) 200 mg BID@09,12 PO 02/24/17 09:00 04/08/17 09:41 (Lactulose Liq) 30 ml DAILY PO 03/16/17 10:45 04/07/17 08:47 A/P Assessment and Plan Mr. Nunez is a 51 year old male who was brought to the hospital as a trauma alert due to head injury after he fell in the bathroom and hit his head. Patient was unresponsive for approximately 15 minutes by the time ambulance services arrived. His mentation waxed and waned with GCS ranging from [address] head indicated subarachnoid hemorrhage, acute. Auditory hallucinations - Psychiatry consulted, recommended Seroquel, no new Episodes of Hallucinations. Intracranial hemorrhage, status post basilar artery coiling 10/05, Status post SENIOR UNDERWRITING ASSISTANT shunt on 11/24/2016 Chronic encephalopathy Hydrocephalus Cortical blindness - Neurology signed off. Neuropsychology following patient ultimately for discharge placement and assistance with recommendations. Per neuropsychology note, ongoing areas of concern include behavioral impulsivity, lack of insight and judgement. - Speech therapy recommends regular diet with thin liquids. Patient is eating well. PEG dc'd 01/08/17. - Continue Seroquel 100mg BID per psychiatry HTN - controlled - continue on Norvasc 5mg daily and Labetalol 100mg q8h Acute hypoxic hypercarbic respiratory failure, resolved - Tracheostomy 10/23/16, removed, old trach site healed. - Monitor respiratory status - stable on RA C. difficile colitis, resolved - Completed Flagyl on 10/23 - No diarrhea reported - off Lactinex Hypokalemia, resolved - Continue scheduled KCL 40 meq PO daily. - Follow and replace as needed. - potassium levels stable - Last laboratory 03/08/17 DVT prophylaxis: SCDs, YOUSIF hose, Lovenox. Ambulation. GI prophylaxis: Protonix. No changes to anterior assessment. Discharge Planning Discharge planning ongoing. CM continues to address funding and placement issue. Pending SSI and medicaid. Luciano Gomez MD Apr 08, 2017 10:45
[2017-04-08 12:00] VITALS: BP 111/79; PULSE 86; RESP 17; TEMP 98; O2SAT 94
[2017-04-08 16:00] VITALS: BP 116/77; PULSE 87; RESP 17; TEMP 97.8; O2SAT 93
[2017-04-08 20:00] VITALS: BP 128/82; PULSE 90; RESP 18; TEMP 98.2; O2SAT 94
[2017-04-08] MEDS: ENOXAPARIN SODIUM 40 MG/0.4 ML SYRINGE SQ SCH (21:00)
[2017-04-09] VITALS: BP 128/78; PULSE 63; RESP 18; TEMP 97.2; O2SAT 93
[2017-04-09 04:00] VITALS: BP 126/85; PULSE 77; RESP 18; TEMP 98; O2SAT 93
[2017-04-09] MEDS: LABETALOL HCL 100 MG TAB PO SCH ×3 (04:11→22:42)
[2017-04-09 08:00] VITALS: BP 125/72; PULSE 76; RESP 17; TEMP 98.1; O2SAT 96
[2017-04-09] MEDS: LACTULOSE SYRUP 20 GM/30 ML CUP PO SCH (08:59)
[2017-04-09] MEDS: DOCUSATE SODIUM 50 MG/SENNA 8.6 MG TAB PO SCH ×2 (08:59→22:43)
[2017-04-09] MEDS: QUEtiapine FUMARATE 100 MG TAB PO SCH ×2 (09:00→12:00)
[2017-04-09] MEDS: amLODIPine BESYLATE 5 MG TAB PO SCH (09:00)
[2017-04-09] MEDS: PANTOPRAZOLE SOD 40 MG DELAYED RELEASE TAB PO SCH (09:00)
[2017-04-09] MEDS: PRAVASTATIN SOD 40 MG TAB PO SCH (09:02)
[2017-04-09] MEDS: POTASSIUM CHLORIDE 20 MEQ CONTROLLED RELEASE TAB PO SCH (09:03)
--- NOTE | 2017-04-09 11:24 | HHI.PR ---
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 Stable denied any pain. Stable in his bedroom, discussed with Nurse Miss Shin no new issues. Objective Vital Signs Date Time Temp Pulse Resp B/P (MAP) Pulse Ox O2 Delivery O2 Flow Rate FiO2 04/09/17 08:00 98.1 76 17 125/72 (89) 96 04/09/17 04:00 98.0 77 18 126/85 (99) 93 04/09/17 00:00 97.2 63 18 128/78 (95) 93 04/08/17 20:00 98.2 90 18 128/82 (97) 94 04/08/17 16:00 97.8 87 17 116/77 (90) 93 04/08/17 12:00 98.0 86 17 111/79 (90) 94 I/O 04/08/17 04/08/17 04/08/17 04/09/17 04/09/17 04/09/17 07:00 15:00 23:00 07:00 15:00 23:00 Intake Total 1200 ml 480 ml Balance 1200 ml 480 ml Intake Oral 1200 ml 480 ml # Voids 3 7 2 # Bowel Movements 0 Imaging Last Impressions Chest X-Ray 02/18/17 0000 Signed Impressions: Service Date/Time: Saturday, February 18, 2017 10:51 - CONCLUSION: Diminished lung volumes. No infiltrate. Tyrese Raymond MD Abdomen X-Ray 02/18/17 0000 Signed Impressions: Service Date/Time: Saturday, February 18, 2017 10:56 - CONCLUSION: Unremarkable abdomen. Tyrese Raymond MD Gall Bladder Ultrasound 02/17/17 0000 Signed Impressions: Service Date/Time: Friday, February 17, 2017 17:45 - CONCLUSION: Mildly enlarged liver and small amount of gallbladder sludge. Tim Hammonds MD Head CT 12/09/16 0000 Signed Impressions: Service Date/Time: Friday, December 09, 2016 17:36 - CONCLUSION: 1. Right ventriculostomy tube remains in place with decrease in ventricular size since November 24. There is some encephalomalacia around the shunt and a probable small infarct in the left basal ganglia. No new hemorrhage or shift. Tip Harris MD Transcranial Doppler Study Complete 10/26/16 0700 Signed Impressions: Service Date/Time: Wednesday, October 26, 2016 08:20 - CONCLUSION: Minimal interval improvement with no evidence for vasospasm. Christian Song MD FACR Neck CTA 10/19/16 0000 Signed Impressions: Service Date/Time: Wednesday, October 19, 2016 14:19 - CONCLUSION: Negative for dissection or significant stenosis. Christian Song MD FACR Head CTA 10/19/16 0000 Signed Impressions: Service Date/Time: Wednesday, October 19, 2016 14:19 - CONCLUSION: 1. Interval development of significant vasospasm in the left MCA and SRI territories. 2. Mild vasospasm in the basilar artery.. Gume Mckeon MD Cerebral Arteriogram 10/19/16 0000 Signed Impressions: Service Date/Time: Wednesday, October 19, 2016 16:06 - CONCLUSION: 1. Vasospasm in the left MCA and SRI territories 2. Spasmolytic infusion, left internal carotid artery as above.. 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 Gume Mckeon MD Pelvis X-Ray 10/05/16109 Signed Impressions: Service Date/Time: Wednesday, October 05, 2016 01:22 - CONCLUSION: Unremarkable examination of the pelvis. Ruben Acuña Jr., MD Chest CT 10/05/16109 Signed Impressions: Service Date/Time: Wednesday, October 05, 2016 01:46 - CONCLUSION: 1. No acute intrathoracic abnormality. 2. Bibasilar atelectasis. 3. Cardiomegaly. 4. Prior granulomatous disease. Ruben Acuña Jr., MD Cervical Spine CT 10/05/16109 Signed Impressions: Service Date/Time: Wednesday, October 05, 2016 01:40 - CONCLUSION: 1. No fracture or dislocation. 2. Multilevel degenerative changes. Ruben Acuña Jr., MD Abdomen/Pelvis CT 10/05/16109 Signed Impressions: Service Date/Time: Wednesday, October 05, 2016 01:46 - CONCLUSION: 1. No acute trauma. 2. Rounded area of decreased density involving the pancreatic head. I cannot completely exclude pancreatic head mass. At some point MRI of the pancreas is suggested to further evaluate. 3. Focal area of poor enhancement involving the left kidney. This may relate to an area of parenchymal scarring. I cannot completely exclude a mass. This can be further assessed with MRI as well. Ruben Acuña Jr., MD Procedures 10/05/16 right frontal twist drill for ventriculostomy placement 10/20/16 arterial line placement 10/23/16 bedside percutaneous tracheostomy under direct bronchoscopic visualization 10/24/16 PEG tube placement at bedside Other Results Laboratory Tests Test 10/05/16 00:15 10/05/16 02:45 10/05/16 17:15 10/06/16 03:45 Bedside Hemoglobin 15.6 G/DL Bedside Hematocrit 46.0 % Eosinophils % 5 % Basophils % 2 % Atypical Lymphocytes % Activated Partial Thromboplast Time 21.0 SEC Fibrinogen 249 mg/dL Bedside Sodium 146 MMOL/L Bedside Potassium 4.4 MMOL/L Bedside Chloride 105 MMOL/L Bedside Blood Urea Nitrogen 30 MG/DL Bedside Creatinine 1.3 MG/DL Bedside Glucose 145 MG/DL Ethyl Alcohol Level LESS THAN 3 MG/DL Nasal Screen MRSA (PCR) NEGATIVE Urine Opiates Screen NEG Urine Barbiturates Screen NEG Urine Amphetamines Screen NEG Urine Benzodiazepines Screen NEG Urine Cocaine Screen NEG Urine Cannabinoids Screen NEG Blood Gas Puncture Site ART LINE Blood Gas Patient Temperature 98.6 Blood Gas HCO3 23 mmol/L Blood Gas Base Excess -1.0 mmol/L Blood Gas Oxygen Saturation 98 % Arterial Blood pH 7.40 Arterial Blood Partial Pressure CO2 38 mmHg Arterial Blood Partial Pressure O2 235 mmHg Arterial Blood Oxygen Content 17.9 Vol % Arterial Blood Carboxyhemoglobin 1.1 % Arterial Blood Methemoglobin 1.0 % Blood Gas Hemoglobin 12.7 G/DL Oxygen Delivery Device VENTILATOR Blood Gas Ventilator Setting [id number]/RR14/VT700/[id number] Blood Gas Inspired Oxygen 80 % Prothrombin Time 10.9 SEC Prothromb Time International Ratio 1.0 RATIO Lactic Acid Level 1.1 mmol/L Test 10/12/16 01:45 10/12/16 04:45 10/14/16 05:15 10/20/16 12:55 Urine WBC Clumps MANY Differential Total Cells Counted 100 Neutrophils % (Manual) 77 % Band Neutrophils % 16 % Lymphocytes % 5 % Monocytes % 2 % Neutrophils # (Manual) 22.6 TH/MM3 Platelet Estimate NORMAL Platelet Morphology Comment NORMAL Red Cell Morphology Comment NORMAL Random Vancomycin Level 7.4 COMMENT Urine Squamous Epithelial Cells <1 /hpf Test 10/21/16 09:20 10/25/16 11:10 11/06/16 20:00 11/08/16 04:45 CSF Volume (Tube 1) 9.0 ML CSF Supernatant Color (tube 1) CLEAR CSF Gross Blood (Tube 1) TRACE CSF WBC (Tube 1) 4 /MM3 CSF RBC (Tube 1) 112 /MM3 CSF Neutrophils 10 % CSF Lymphocytes 60 % CSF Monocytes 30 % CSF Glucose 112 MG/DL CSF Total Protein 28.8 MG/DL Urine Osmolality 290 MOSM/KG Urine Random Sodium 119 MEQ/L Serum Osmolality 303 MOSM/KG Blood Urea Nitrogen 16 MG/DL 10 MG/DL Creatinine 0.71 MG/DL 0.69 MG/DL Random Glucose 127 MG/DL 100 MG/DL Total Protein 6.6 GM/DL Albumin 2.3 GM/DL Calcium Level 7.8 MG/DL 8.2 MG/DL Magnesium Level 2.3 MG/DL 2.0 MG/DL Uric Acid 2.5 MG/DL Alkaline Phosphatase 67 U/L Aspartate Amino Transf (AST/SGOT) 28 U/L Alanine Aminotransferase (ALT/SGPT) 67 U/L Total Bilirubin 0.5 MG/DL Sodium Level 147 MEQ/L 148 MEQ/L Potassium Level 3.4 MEQ/L 3.7 MEQ/L Chloride Level 112 MEQ/L 114 MEQ/L Carbon Dioxide Level 26.0 MEQ/L 27.1 MEQ/L Protein Corrected Calcium 7.8 MG/DL Ovalocytes 1+ Acanthocytes OCC Phosphorus Level 3.0 MG/DL Test 11/14/16 06:00 11/17/16 08:11 01/18/17 18:19 01/20/17 09:35 Urine Transitional Epithelial Cells <1 /hpf Urine Calcium Oxalate Crystals RARE /hpf Urine Bacteria RARE /hpf Urine Hyaline Casts 11 /lpf Stool C. difficile Toxin (PCR) NEGATIVE Stl C. difficile Toxin Epiderm 027 PRESUMPTIVE NEGATIVE Ammonia 26 MCMOL/L Urine Mucus FEW /lpf Test 02/06/17 08:20 02/17/17 09:45 02/17/17 18:04 02/18/17 17:10 Levetiracetam (Keppra) Level <2.0 mcg/mL Urine Color LIGHT-YELLOW Urine Turbidity CLEAR Urine pH 6.5 Urine Specific [place] 1.009 Urine Protein NEG mg/dL Urine Glucose (UA) NEG mg/dL Urine Ketones NEG mg/dL Urine Occult Blood NEG Urine Nitrite NEG Urine Bilirubin NEG Urine Urobilinogen LESS THAN 2.0 MG/DL Urine Leukocyte Esterase NEG Urine RBC LESS THAN 1 /hpf Urine WBC 1 /hpf Microscopic Urinalysis Comment CULT NOT INDICATED Blood Urea Nitrogen 18 MG/DL Creatinine 1.17 MG/DL Random Glucose 81 MG/DL Total Protein 7.1 GM/DL Albumin 3.6 GM/DL Calcium Level 8.5 MG/DL Alkaline Phosphatase 58 U/L Aspartate Amino Transf (AST/SGOT) 11 U/L Alanine Aminotransferase (ALT/SGPT) 24 U/L Total Bilirubin 0.4 MG/DL Sodium Level 141 MEQ/L Potassium Level 4.1 MEQ/L Chloride Level 110 MEQ/L Carbon Dioxide Level 24.8 MEQ/L Lipase 85 U/L Troponin I LESS THAN 0.02 NG/ML Test 03/08/17 08:58 03/29/17 11:00 Blood Urea Nitrogen 16 MG/DL 18 MG/DL Creatinine 1.30 MG/DL 1.27 MG/DL Random Glucose 120 MG/DL 100 MG/DL Calcium Level 9.0 MG/DL 8.9 MG/DL Magnesium Level 2.2 MG/DL Sodium Level 143 MEQ/L 145 MEQ/L Potassium Level 4.0 MEQ/L 4.1 MEQ/L Chloride Level 109 MEQ/L 111 MEQ/L Carbon Dioxide Level 27.0 MEQ/L 28.0 MEQ/L White Blood Count 6.2 TH/MM3 Red Blood Count 4.71 MIL/MM3 Hemoglobin 13.9 GM/DL Hematocrit 41.4 % Mean Corpuscular Volume 87.8 FL Mean Corpuscular Hemoglobin 29.6 PG Mean Corpuscular Hemoglobin Concent 33.7 % Red Cell Distribution Width 14.3 % Platelet Count 183 TH/MM3 Mean Platelet Volume 9.2 FL Neutrophils (%) (Auto) 63.6 % Lymphocytes (%) (Auto) 23.0 % Monocytes (%) (Auto) 9.3 % Eosinophils (%) (Auto) 2.9 % Basophils (%) (Auto) 1.2 % Neutrophils # (Auto) 4.0 TH/MM3 Lymphocytes # (Auto) 1.4 TH/MM3 Monocytes # (Auto) 0.6 TH/MM3 Eosinophils # (Auto) 0.2 TH/MM3 Basophils # (Auto) 0.1 TH/MM3 CBC Comment DIFF FINAL Differential Comment Anion Gap 6 MEQ/L Estimat Glomerular Filtration Rate 60 ML/MIN Objective Remarks GENERAL: Well-nourished, well-developed male patient, in no apparent distress. Awake and alert. Sitting up at nurses station. Appears comfortable. SKIN: No rash. Warm and dry. HEENT: Normocephalic. Extraocular motions intact. No scleral icterus. No injection or drainage. Nose without bleeding. MMM. Airway patent. NECK: Trachea midline. Supple. CARDIOVASCULAR: RRR. No murmur appreciated. RESPIRATORY: Nonlabored. Clear to auscultation. Breath sounds equal bilaterally. No wheezes, rales, or rhonchi. GASTROINTESTINAL: Abdomen soft, nondistended and nontender. BS x 4. MUSCULOSKELETAL: Extremities without clubbing, cyanosis, or edema. NEUROLOGICAL: Awake and alert. Oriented to self only. Moves all 4 extremities spontaneously. Motor and sensory function grossly intact. Normal speech. Medications and IVs Current Medications Medications (Trade) Dose Ordered Sig/Nava Route Start Time Stop Time Status Last Admin (Tylenol) 650 mg Q6H PRN PO 10/05/16 02:45 04/04/17 20:54 (Zofran Inj) 4 mg Q6H PRN IV 10/05/16 02:45 11/27/16 23:26 Miscellaneous Information 1 Q361D XX 10/05/16 02:45 10/05/16 02:45 (Pravachol) 40 mg DAILY PO 10/05/16 09:00 04/09/17 09:02 (Lovenox Inj) 40 mg Q24H SQ 10/23/16 21:00 Future hold 04/08/17 21:00 (Trandate) 100 mg Q8H PO 11/03/16 20:00 04/09/17 04:11 (Norvasc) 5 mg DAILY PO 11/04/16 09:00 04/09/17 09:00 (Imodium) 2 mg UNSCH PRN PO 11/09/16 09:45 11/29/16 12:57 (Lomotil Tab) 1 tab Q6H PRN PO 11/09/16 09:45 (Lactulose Liq) 30 ml QID PRN PO 12/09/16 13:45 (Protonix) 40 mg DAILY PO 12/16/16 09:00 04/09/17 09:00 (Benadryl) 50 mg Q6H PRN PO 12/20/16 17:45 04/07/17 22:44 (Colace) 100 mg Q12H PRN PO 02/12/17 00:15 (Duoneb Neb) 1 ampule Q4HR NEB PRN INH 02/12/17 12:00 (KCl) 40 meq DAILY PO 02/13/17 09:00 04/09/17 09:03 (Tonie-Colace) 1 tab BID PO 02/18/17 09:30 04/08/17 21:00 (SEROquel) 200 mg BID@09,12 PO 02/24/17 09:00 04/09/17 09:00 (Lactulose Liq) 30 ml DAILY PO 03/16/17 10:45 04/07/17 08:47 A/P Assessment and Plan Mr. Nunez is a 51 year old male who was brought to the hospital as a trauma alert due to head injury after he fell in the bathroom and hit his head. Patient was unresponsive for approximately 15 minutes by the time ambulance services arrived. His mentation waxed and waned with GCS ranging from [address] head indicated subarachnoid hemorrhage, acute. Auditory hallucinations - Psychiatry consulted, recommended Seroquel, no new Episodes of Hallucinations. Intracranial hemorrhage, status post basilar artery coiling 10/05, Status post [employer] shunt on 11/24/2016 Chronic encephalopathy Hydrocephalus Cortical blindness - Neurology signed off. Neuropsychology following patient ultimately for discharge placement and assistance with recommendations. Per neuropsychology note, ongoing areas of concern include behavioral impulsivity, lack of insight and judgement. - Speech therapy recommends regular diet with thin liquids. Patient is eating well. PEG dc'd 01/08/17. - Continue Seroquel 100mg BID per psychiatry HTN - controlled - continue on Norvasc 5mg daily and Labetalol 100mg q8h Acute hypoxic hypercarbic respiratory failure, resolved - Tracheostomy 10/23/16, removed, old trach site healed. - Monitor respiratory status - stable on RA C. difficile colitis, resolved - Completed Flagyl on 10/23 - No diarrhea reported - off Lactinex Hypokalemia, resolved - Continue scheduled KCL 40 meq PO daily. - Follow and replace as needed. - potassium levels stable - Last laboratory 03/08/17 DVT prophylaxis: SCDs, YOUSIF hose, Lovenox. Ambulation. GI prophylaxis: Protonix. No changes to anterior assessment. Discharge Planning 04/07/17- Pt now has [facility] Medicaid. Josiah Aguirre/[place] (the plan in previous CM notes)- he is unaware of this pt. Opened the portal and submitted to [employer] for review. Luciano Gomez MD Apr 09, 2017 11:24
[2017-04-09 12:00] VITALS: BP 111/64; PULSE 81; RESP 17; TEMP 98.3; O2SAT 94
[2017-04-09 20:00] VITALS: BP 119/81; PULSE 89; RESP 18; TEMP 98.3; O2SAT 92
[2017-04-09] MEDS: diphenhydrAMINE HCL 50 MG CAP PO PRN (22:42)
[2017-04-09] MEDS: ENOXAPARIN SODIUM 40 MG/0.4 ML SYRINGE SQ SCH (22:43)
[2017-04-10] VITALS (8 sets, daily range): BP systolic 110–138; BP diastolic 59–89; PULSE 74–110; RESP 18–20; TEMP 97–98.3; O2SAT 90–97
[2017-04-10] MEDS: LABETALOL HCL 100 MG TAB PO SCH ×3 (04:52→21:03)
--- NOTE | 2017-04-10 08:22 | HHI.PR ---
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 Stable denied any pain. seen in his bedroom, making jokes, no complaint, Objective Vital Signs Date Time Temp Pulse Resp B/P (MAP) Pulse Ox O2 Delivery O2 Flow Rate FiO2 04/10/17 07:44 98.2 74 20 110/70 (83) 92 04/10/17 04:30 97.4 81 20 131/82 (98) 04/10/17 04:00 97.7 86 18 138/76 (96) 97 04/10/17 00:00 97.1 91 18 131/59 (83) 97 04/09/17 20:00 98.3 89 18 119/81 (94) 92 04/09/17 12:00 98.3 81 17 111/64 (80) 94 I/O 04/09/17 04/09/17 04/09/17 04/10/17 04/10/17 04/10/17 07:00 15:00 23:00 07:00 15:00 23:00 Intake Total 480 ml 960 ml Balance 480 ml 960 ml Intake Oral 480 ml 960 ml # Voids 2 3 4 # Bowel Movements 0 Imaging Last Impressions Chest X-Ray 02/18/17 0000 Signed Impressions: Service Date/Time: Saturday, February 18, 2017 10:51 - CONCLUSION: Diminished lung volumes. No infiltrate. Tyrese Raymond MD Abdomen X-Ray 02/18/17 0000 Signed Impressions: Service Date/Time: Saturday, February 18, 2017 10:56 - CONCLUSION: Unremarkable abdomen. Tyrese Raymond MD Gall Bladder Ultrasound 02/17/17 0000 Signed Impressions: Service Date/Time: Friday, February 17, 2017 17:45 - CONCLUSION: Mildly enlarged liver and small amount of gallbladder sludge. Tim Hammonds MD Head CT 12/09/16 0000 Signed Impressions: Service Date/Time: Friday, December 09, 2016 17:36 - CONCLUSION: 1. Right ventriculostomy tube remains in place with decrease in ventricular size since November 24. There is some encephalomalacia around the shunt and a probable small infarct in the left basal ganglia. No new hemorrhage or shift. Tip Harris MD Transcranial Doppler Study Complete 10/26/16 0700 Signed Impressions: Service Date/Time: Wednesday, October 26, 2016 08:20 - CONCLUSION: Minimal interval improvement with no evidence for vasospasm. Christian Song MD FACR Neck CTA 10/19/16 0000 Signed Impressions: Service Date/Time: Wednesday, October 19, 2016 14:19 - CONCLUSION: Negative for dissection or significant stenosis. Christian Song MD FACR Head CTA 10/19/16 0000 Signed Impressions: Service Date/Time: Wednesday, October 19, 2016 14:19 - CONCLUSION: 1. Interval development of significant vasospasm in the left MCA and SRI territories. 2. Mild vasospasm in the basilar artery.. Gume Mckeon MD Cerebral Arteriogram 10/19/16 0000 Signed Impressions: Service Date/Time: Wednesday, October 19, 2016 16:06 - CONCLUSION: 1. Vasospasm in the left MCA and SRI territories 2. Spasmolytic infusion, left internal carotid artery as above.. 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 Gume Mckeon MD Pelvis X-Ray 10/05/16109 Signed Impressions: Service Date/Time: Wednesday, October 05, 2016 01:22 - CONCLUSION: Unremarkable examination of the pelvis. Ruben Acuña Jr., MD Chest CT 10/05/16109 Signed Impressions: Service Date/Time: Wednesday, October 05, 2016 01:46 - CONCLUSION: 1. No acute intrathoracic abnormality. 2. Bibasilar atelectasis. 3. Cardiomegaly. 4. Prior granulomatous disease. Ruben Acuña Jr., MD Cervical Spine CT 10/05/16109 Signed Impressions: Service Date/Time: Wednesday, October 05, 2016 01:40 - CONCLUSION: 1. No fracture or dislocation. 2. Multilevel degenerative changes. Ruben Acuña Jr., MD Abdomen/Pelvis CT 10/05/16109 Signed Impressions: Service Date/Time: Wednesday, October 05, 2016 01:46 - CONCLUSION: 1. No acute trauma. 2. Rounded area of decreased density involving the pancreatic head. I cannot completely exclude pancreatic head mass. At some point MRI of the pancreas is suggested to further evaluate. 3. Focal area of poor enhancement involving the left kidney. This may relate to an area of parenchymal scarring. I cannot completely exclude a mass. This can be further assessed with MRI as well. Ruben Acuña Jr., MD Procedures 10/05/16 right frontal twist drill for ventriculostomy placement 10/20/16 arterial line placement 10/23/16 bedside percutaneous tracheostomy under direct bronchoscopic visualization 10/24/16 PEG tube placement at bedside Other Results Laboratory Tests Test 10/05/16 00:15 10/05/16 02:45 10/05/16 17:15 10/06/16 03:45 Bedside Hemoglobin 15.6 G/DL Bedside Hematocrit 46.0 % Eosinophils % 5 % Basophils % 2 % Atypical Lymphocytes % Activated Partial Thromboplast Time 21.0 SEC Fibrinogen 249 mg/dL Bedside Sodium 146 MMOL/L Bedside Potassium 4.4 MMOL/L Bedside Chloride 105 MMOL/L Bedside Blood Urea Nitrogen 30 MG/DL Bedside Creatinine 1.3 MG/DL Bedside Glucose 145 MG/DL Ethyl Alcohol Level LESS THAN 3 MG/DL Nasal Screen MRSA (PCR) NEGATIVE Urine Opiates Screen NEG Urine Barbiturates Screen NEG Urine Amphetamines Screen NEG Urine Benzodiazepines Screen NEG Urine Cocaine Screen NEG Urine Cannabinoids Screen NEG Blood Gas Puncture Site ART LINE Blood Gas Patient Temperature 98.6 Blood Gas HCO3 23 mmol/L Blood Gas Base Excess -1.0 mmol/L Blood Gas Oxygen Saturation 98 % Arterial Blood pH 7.40 Arterial Blood Partial Pressure CO2 38 mmHg Arterial Blood Partial Pressure O2 235 mmHg Arterial Blood Oxygen Content 17.9 Vol % Arterial Blood Carboxyhemoglobin 1.1 % Arterial Blood Methemoglobin 1.0 % Blood Gas Hemoglobin 12.7 G/DL Oxygen Delivery Device VENTILATOR Blood Gas Ventilator Setting [id number]/RR14/VT700/[id number] Blood Gas Inspired Oxygen 80 % Prothrombin Time 10.9 SEC Prothromb Time International Ratio 1.0 RATIO Lactic Acid Level 1.1 mmol/L Test 10/12/16 01:45 10/12/16 04:45 10/14/16 05:15 10/20/16 12:55 Urine WBC Clumps MANY Differential Total Cells Counted 100 Neutrophils % (Manual) 77 % Band Neutrophils % 16 % Lymphocytes % 5 % Monocytes % 2 % Neutrophils # (Manual) 22.6 TH/MM3 Platelet Estimate NORMAL Platelet Morphology Comment NORMAL Red Cell Morphology Comment NORMAL Random Vancomycin Level 7.4 COMMENT Urine Squamous Epithelial Cells <1 /hpf Test 10/21/16 09:20 10/25/16 11:10 11/06/16 20:00 11/08/16 04:45 CSF Volume (Tube 1) 9.0 ML CSF Supernatant Color (tube 1) CLEAR CSF Gross Blood (Tube 1) TRACE CSF WBC (Tube 1) 4 /MM3 CSF RBC (Tube 1) 112 /MM3 CSF Neutrophils 10 % CSF Lymphocytes 60 % CSF Monocytes 30 % CSF Glucose 112 MG/DL CSF Total Protein 28.8 MG/DL Urine Osmolality 290 MOSM/KG Urine Random Sodium 119 MEQ/L Serum Osmolality 303 MOSM/KG Blood Urea Nitrogen 16 MG/DL 10 MG/DL Creatinine 0.71 MG/DL 0.69 MG/DL Random Glucose 127 MG/DL 100 MG/DL Total Protein 6.6 GM/DL Albumin 2.3 GM/DL Calcium Level 7.8 MG/DL 8.2 MG/DL Magnesium Level 2.3 MG/DL 2.0 MG/DL Uric Acid 2.5 MG/DL Alkaline Phosphatase 67 U/L Aspartate Amino Transf (AST/SGOT) 28 U/L Alanine Aminotransferase (ALT/SGPT) 67 U/L Total Bilirubin 0.5 MG/DL Sodium Level 147 MEQ/L 148 MEQ/L Potassium Level 3.4 MEQ/L 3.7 MEQ/L Chloride Level 112 MEQ/L 114 MEQ/L Carbon Dioxide Level 26.0 MEQ/L 27.1 MEQ/L Protein Corrected Calcium 7.8 MG/DL Ovalocytes 1+ Acanthocytes OCC Phosphorus Level 3.0 MG/DL Test 11/14/16 06:00 11/17/16 08:11 01/18/17 18:19 01/20/17 09:35 Urine Transitional Epithelial Cells <1 /hpf Urine Calcium Oxalate Crystals RARE /hpf Urine Bacteria RARE /hpf Urine Hyaline Casts 11 /lpf Stool C. difficile Toxin (PCR) NEGATIVE Stl C. difficile Toxin Epiderm 027 PRESUMPTIVE NEGATIVE Ammonia 26 MCMOL/L Urine Mucus FEW /lpf Test 02/06/17 08:20 02/17/17 09:45 02/17/17 18:04 02/18/17 17:10 Levetiracetam (Keppra) Level <2.0 mcg/mL Urine Color LIGHT-YELLOW Urine Turbidity CLEAR Urine pH 6.5 Urine Specific [place] 1.009 Urine Protein NEG mg/dL Urine Glucose (UA) NEG mg/dL Urine Ketones NEG mg/dL Urine Occult Blood NEG Urine Nitrite NEG Urine Bilirubin NEG Urine Urobilinogen LESS THAN 2.0 MG/DL Urine Leukocyte Esterase NEG Urine RBC LESS THAN 1 /hpf Urine WBC 1 /hpf Microscopic Urinalysis Comment CULT NOT INDICATED Blood Urea Nitrogen 18 MG/DL Creatinine 1.17 MG/DL Random Glucose 81 MG/DL Total Protein 7.1 GM/DL Albumin 3.6 GM/DL Calcium Level 8.5 MG/DL Alkaline Phosphatase 58 U/L Aspartate Amino Transf (AST/SGOT) 11 U/L Alanine Aminotransferase (ALT/SGPT) 24 U/L Total Bilirubin 0.4 MG/DL Sodium Level 141 MEQ/L Potassium Level 4.1 MEQ/L Chloride Level 110 MEQ/L Carbon Dioxide Level 24.8 MEQ/L Lipase 85 U/L Troponin I LESS THAN 0.02 NG/ML Test 03/08/17 08:58 03/29/17 11:00 Blood Urea Nitrogen 16 MG/DL 18 MG/DL Creatinine 1.30 MG/DL 1.27 MG/DL Random Glucose 120 MG/DL 100 MG/DL Calcium Level 9.0 MG/DL 8.9 MG/DL Magnesium Level 2.2 MG/DL Sodium Level 143 MEQ/L 145 MEQ/L Potassium Level 4.0 MEQ/L 4.1 MEQ/L Chloride Level 109 MEQ/L 111 MEQ/L Carbon Dioxide Level 27.0 MEQ/L 28.0 MEQ/L White Blood Count 6.2 TH/MM3 Red Blood Count 4.71 MIL/MM3 Hemoglobin 13.9 GM/DL Hematocrit 41.4 % Mean Corpuscular Volume 87.8 FL Mean Corpuscular Hemoglobin 29.6 PG Mean Corpuscular Hemoglobin Concent 33.7 % Red Cell Distribution Width 14.3 % Platelet Count 183 TH/MM3 Mean Platelet Volume 9.2 FL Neutrophils (%) (Auto) 63.6 % Lymphocytes (%) (Auto) 23.0 % Monocytes (%) (Auto) 9.3 % Eosinophils (%) (Auto) 2.9 % Basophils (%) (Auto) 1.2 % Neutrophils # (Auto) 4.0 TH/MM3 Lymphocytes # (Auto) 1.4 TH/MM3 Monocytes # (Auto) 0.6 TH/MM3 Eosinophils # (Auto) 0.2 TH/MM3 Basophils # (Auto) 0.1 TH/MM3 CBC Comment DIFF FINAL Differential Comment Anion Gap 6 MEQ/L Estimat Glomerular Filtration Rate 60 ML/MIN Objective Remarks GENERAL: Well-nourished, well-developed male patient, in no apparent distress. Awake and alert. Sitting up at nurses station. Appears comfortable. SKIN: No rash. Warm and dry. HEENT: Normocephalic. Extraocular motions intact. No scleral icterus. No injection or drainage. Nose without bleeding. MMM. Airway patent. NECK: Trachea midline. Supple. CARDIOVASCULAR: RRR. No murmur appreciated. RESPIRATORY: Nonlabored. Clear to auscultation. Breath sounds equal bilaterally. No wheezes, rales, or rhonchi. GASTROINTESTINAL: Abdomen soft, nondistended and nontender. BS x 4. MUSCULOSKELETAL: Extremities without clubbing, cyanosis, or edema. NEUROLOGICAL: Awake and alert. Oriented to self only. Moves all 4 extremities spontaneously. Motor and sensory function grossly intact. Normal speech. Medications and IVs Current Medications Medications (Trade) Dose Ordered Sig/Nava Route Start Time Stop Time Status Last Admin (Tylenol) 650 mg Q6H PRN PO 10/05/16 02:45 04/04/17 20:54 (Zofran Inj) 4 mg Q6H PRN IV 10/05/16 02:45 11/27/16 23:26 Miscellaneous Information 1 Q361D XX 10/05/16 02:45 10/05/16 02:45 (Pravachol) 40 mg DAILY PO 10/05/16 09:00 04/09/17 09:02 (Lovenox Inj) 40 mg Q24H SQ 10/23/16 21:00 Future hold 04/09/17 22:43 (Trandate) 100 mg Q8H PO 11/03/16 20:00 04/10/17 04:52 (Norvasc) 5 mg DAILY PO 11/04/16 09:00 04/09/17 09:00 (Imodium) 2 mg UNSCH PRN PO 11/09/16 09:45 11/29/16 12:57 (Lomotil Tab) 1 tab Q6H PRN PO 11/09/16 09:45 (Lactulose Liq) 30 ml QID PRN PO 12/09/16 13:45 (Protonix) 40 mg DAILY PO 12/16/16 09:00 04/09/17 09:00 (Benadryl) 50 mg Q6H PRN PO 12/20/16 17:45 04/09/17 22:42 (Colace) 100 mg Q12H PRN PO 02/12/17 00:15 (Duoneb Neb) 1 ampule Q4HR NEB PRN INH 02/12/17 12:00 (KCl) 40 meq DAILY PO 02/13/17 09:00 04/09/17 09:03 (Tonie-Colace) 1 tab BID PO 02/18/17 09:30 04/09/17 22:43 (SEROquel) 200 mg BID@09,12 PO 02/24/17 09:00 04/09/17 12:00 (Lactulose Liq) 30 ml DAILY PO 03/16/17 10:45 04/07/17 08:47 A/P Assessment and Plan Mr. Nunez is a 51 year old male who was brought to the hospital as a trauma alert due to head injury after he fell in the bathroom and hit his head. Patient was unresponsive for approximately 15 minutes by the time ambulance services arrived. His mentation waxed and waned with GCS ranging from [address] head indicated subarachnoid hemorrhage, acute. Auditory hallucinations - Psychiatry consulted, recommended Seroquel, no new Episodes of Hallucinations. Intracranial hemorrhage, status post basilar artery coiling 10/05, Status post HOME CHILD CARE PROVIDER shunt on 11/24/2016 Chronic encephalopathy Hydrocephalus Cortical blindness - Neurology signed off. Neuropsychology following patient ultimately for discharge placement and assistance with recommendations. Per neuropsychology note, ongoing areas of concern include behavioral impulsivity, lack of insight and judgement. - Speech therapy recommends regular diet with thin liquids. Patient is eating well. PEG dc'd 01/08/17. - Continue Seroquel 100mg BID per psychiatry HTN - controlled - continue on Norvasc 5mg daily and Labetalol 100mg q8h Acute hypoxic hypercarbic respiratory failure, resolved - Tracheostomy 10/23/16, removed, old trach site healed. - Monitor respiratory status - stable on RA C. difficile colitis, resolved - Completed Flagyl on 10/23 - No diarrhea reported - off Lactinex Hypokalemia, resolved - Continue scheduled KCL 40 meq PO daily. - Follow and replace as needed. - potassium levels stable - Last laboratory 03/08/17 DVT prophylaxis: SCDs, YOUSIF hose, Lovenox. Ambulation. GI prophylaxis: Protonix. No changes to anterior assessment. Discharge Planning 04/07/17- Pt now has [facility] Medicaid. Josiah Aguirre/[place] (the plan in previous CM notes)- he is unaware of this pt. Opened the portal and submitted to [employer] for review. Luciano Gomez MD Apr 10, 2017 8:22 am
[2017-04-10] MEDS: amLODIPine BESYLATE 5 MG TAB PO SCH (09:45)
[2017-04-10] MEDS: PANTOPRAZOLE SOD 40 MG DELAYED RELEASE TAB PO SCH (09:45)
[2017-04-10] MEDS: QUEtiapine FUMARATE 100 MG TAB PO SCH ×2 (09:45→12:11)
[2017-04-10] MEDS: LACTULOSE SYRUP 20 GM/30 ML CUP PO SCH (09:45)
[2017-04-10] MEDS: PRAVASTATIN SOD 40 MG TAB PO SCH (09:45)
[2017-04-10] MEDS: POTASSIUM CHLORIDE 20 MEQ CONTROLLED RELEASE TAB PO SCH (09:46)
[2017-04-10] MEDS: DOCUSATE SODIUM 50 MG/SENNA 8.6 MG TAB PO SCH ×2 (09:46→21:02)
[2017-04-10 09:55] LABS: HEMATOCRIT 41.1 % (39.0-51.0); HEMOGLOBIN 13.7 GM/DL (13.0-17.0); MEAN CELL VOLUME 88.1 FL (80.0-100.0); MEAN CORPUSCULAR HEMOGLOBIN 29.5 PG (27.0-34.0); MEAN CORPUSCULAR HGB CONC 33.5 % (32.0-36.0); MEAN PLATELET VOLUME 9.3 FL (7.0-11.0); PLATELET COUNT 196 TH/MM3 (150-450); RED BLOOD COUNT 4.66 MIL/MM3 (4.50-5.90); RED CELL DISTRIBUTION WIDTH 14.3 % (11.6-17.2); WHITE BLOOD COUNT 5.7 TH/MM3 (4.0-11.0)
[2017-04-10 10:25] LABS: BICARBONATE 26.1 MEQ/L (21.0-32.0); CREATININE 1.36 MG/DL (0.60-1.30)
[2017-04-10] MEDS: ENOXAPARIN SODIUM 40 MG/0.4 ML SYRINGE SQ SCH (21:03)
[2017-04-11] VITALS: BP 124/73; PULSE 56; RESP 18; TEMP 97.1; O2SAT 99
[2017-04-11] MEDS: LABETALOL HCL 100 MG TAB PO SCH ×3 (03:33→21:34)
[2017-04-11 05:48] VITALS: BP 101/61; PULSE 71; RESP 18; TEMP 97.6; O2SAT 93
[2017-04-11 07:50] VITALS: BP 132/78; PULSE 75; RESP 20; TEMP 97.6; O2SAT 94
[2017-04-11] MEDS: DOCUSATE SODIUM 50 MG/SENNA 8.6 MG TAB PO SCH ×2 (09:05→21:33)
[2017-04-11] MEDS: PRAVASTATIN SOD 40 MG TAB PO SCH (09:05)
[2017-04-11] MEDS: POTASSIUM CHLORIDE 20 MEQ CONTROLLED RELEASE TAB PO SCH (09:05)
[2017-04-11] MEDS: LACTULOSE SYRUP 20 GM/30 ML CUP PO SCH (09:05)
[2017-04-11] MEDS: QUEtiapine FUMARATE 100 MG TAB PO SCH ×2 (09:05→12:23)
[2017-04-11] MEDS: amLODIPine BESYLATE 5 MG TAB PO SCH (09:05)
[2017-04-11] MEDS: PANTOPRAZOLE SOD 40 MG DELAYED RELEASE TAB PO SCH (09:06)
--- NOTE | 2017-04-11 09:24 | HHI.PR ---
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 Watching television in his bedroom, discussed with nurse Miss Jenny no new issues no nausea, vomit or diarrhea. Objective Vital Signs Date Time Temp Pulse Resp B/P (MAP) Pulse Ox O2 Delivery O2 Flow Rate FiO2 04/11/17 07:50 97.6 75 20 132/78 (96) 94 04/11/17 05:48 97.6 71 18 101/61 (74) 93 04/11/17 00:00 97.1 56 18 124/73 (90) 99 04/10/17 21:00 97.2 97 18 97 04/10/17 20:00 97.0 97 18 121/76 (91) 90 04/10/17 16:28 98.3 110 20 113/83 (93) 95 04/10/17 11:50 98.3 83 20 121/83 (96) 93 I/O 04/10/17 04/10/17 04/10/17 04/11/17 04/11/17 04/11/17 07:00 15:00 23:00 07:00 15:00 23:00 Intake Total 960 ml 500 ml Balance 960 ml 500 ml Intake Oral 960 ml 500 ml # Voids 4 3 Result Diagram: 04/10/17 0747 04/10/17 0747 Imaging Last Impressions Chest X-Ray 02/18/17 0000 Signed Impressions: Service Date/Time: Saturday, February 18, 2017 10:51 - CONCLUSION: Diminished lung volumes. No infiltrate. Tyrese Raymond MD Abdomen X-Ray 02/18/17 0000 Signed Impressions: Service Date/Time: Saturday, February 18, 2017 10:56 - CONCLUSION: Unremarkable abdomen. Tyrese Raymond MD Gall Bladder Ultrasound 02/17/17 0000 Signed Impressions: Service Date/Time: Friday, February 17, 2017 17:45 - CONCLUSION: Mildly enlarged liver and small amount of gallbladder sludge. Tim Hammonds MD Head CT 12/09/16 0000 Signed Impressions: Service Date/Time: Friday, December 09, 2016 17:36 - CONCLUSION: 1. Right ventriculostomy tube remains in place with decrease in ventricular size since November 24. There is some encephalomalacia around the shunt and a probable small infarct in the left basal ganglia. No new hemorrhage or shift. Tip Harris MD Transcranial Doppler Study Complete 10/26/16 0700 Signed Impressions: Service Date/Time: Wednesday, October 26, 2016 08:20 - CONCLUSION: Minimal interval improvement with no evidence for vasospasm. Christian Song MD FACR Neck CTA 10/19/16 0000 Signed Impressions: Service Date/Time: Wednesday, October 19, 2016 14:19 - CONCLUSION: Negative for dissection or significant stenosis. Christian Song MD FACR Head CTA 10/19/16 0000 Signed Impressions: Service Date/Time: Wednesday, October 19, 2016 14:19 - CONCLUSION: 1. Interval development of significant vasospasm in the left MCA and SRI territories. 2. Mild vasospasm in the basilar artery.. Gume Mckeon MD Cerebral Arteriogram 10/19/16 0000 Signed Impressions: Service Date/Time: Wednesday, October 19, 2016 16:06 - CONCLUSION: 1. Vasospasm in the left MCA and SRI territories 2. Spasmolytic infusion, left internal carotid artery as above.. 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 Gume Mckeon MD Pelvis X-Ray 10/05/16109 Signed Impressions: Service Date/Time: Wednesday, October 05, 2016 01:22 - CONCLUSION: Unremarkable examination of the pelvis. Ruben Acuña Jr., MD Chest CT 10/05/16109 Signed Impressions: Service Date/Time: Wednesday, October 05, 2016 01:46 - CONCLUSION: 1. No acute intrathoracic abnormality. 2. Bibasilar atelectasis. 3. Cardiomegaly. 4. Prior granulomatous disease. Ruben Acuña Jr., MD Cervical Spine CT 10/05/16109 Signed Impressions: Service Date/Time: Wednesday, October 05, 2016 01:40 - CONCLUSION: 1. No fracture or dislocation. 2. Multilevel degenerative changes. Ruben Acuña Jr., MD Abdomen/Pelvis CT 10/05/16109 Signed Impressions: Service Date/Time: Wednesday, October 05, 2016 01:46 - CONCLUSION: 1. No acute trauma. 2. Rounded area of decreased density involving the pancreatic head. I cannot completely exclude pancreatic head mass. At some point MRI of the pancreas is suggested to further evaluate. 3. Focal area of poor enhancement involving the left kidney. This may relate to an area of parenchymal scarring. I cannot completely exclude a mass. This can be further assessed with MRI as well. Ruben Acuña Jr., MD Procedures 10/05/16 right frontal twist drill for ventriculostomy placement 10/20/16 arterial line placement 10/23/16 bedside percutaneous tracheostomy under direct bronchoscopic visualization 10/24/16 PEG tube placement at bedside Other Results Laboratory Tests Test 10/05/16 00:15 10/05/16 02:45 10/05/16 17:15 10/06/16 03:45 Bedside Hemoglobin 15.6 G/DL Bedside Hematocrit 46.0 % Eosinophils % 5 % Basophils % 2 % Atypical Lymphocytes % Activated Partial Thromboplast Time 21.0 SEC Fibrinogen 249 mg/dL Bedside Sodium 146 MMOL/L Bedside Potassium 4.4 MMOL/L Bedside Chloride 105 MMOL/L Bedside Blood Urea Nitrogen 30 MG/DL Bedside Creatinine 1.3 MG/DL Bedside Glucose 145 MG/DL Ethyl Alcohol Level LESS THAN 3 MG/DL Nasal Screen MRSA (PCR) NEGATIVE Urine Opiates Screen NEG Urine Barbiturates Screen NEG Urine Amphetamines Screen NEG Urine Benzodiazepines Screen NEG Urine Cocaine Screen NEG Urine Cannabinoids Screen NEG Blood Gas Puncture Site ART LINE Blood Gas Patient Temperature 98.6 Blood Gas HCO3 23 mmol/L Blood Gas Base Excess -1.0 mmol/L Blood Gas Oxygen Saturation 98 % Arterial Blood pH 7.40 Arterial Blood Partial Pressure CO2 38 mmHg Arterial Blood Partial Pressure O2 235 mmHg Arterial Blood Oxygen Content 17.9 Vol % Arterial Blood Carboxyhemoglobin 1.1 % Arterial Blood Methemoglobin 1.0 % Blood Gas Hemoglobin 12.7 G/DL Oxygen Delivery Device VENTILATOR Blood Gas Ventilator Setting [id number]/RR14/VT700/[id number] Blood Gas Inspired Oxygen 80 % Prothrombin Time 10.9 SEC Prothromb Time International Ratio 1.0 RATIO Lactic Acid Level 1.1 mmol/L Test 10/12/16 01:45 10/12/16 04:45 10/14/16 05:15 10/20/16 12:55 Urine WBC Clumps MANY Differential Total Cells Counted 100 Neutrophils % (Manual) 77 % Band Neutrophils % 16 % Lymphocytes % 5 % Monocytes % 2 % Neutrophils # (Manual) 22.6 TH/MM3 Platelet Estimate NORMAL Platelet Morphology Comment NORMAL Red Cell Morphology Comment NORMAL Random Vancomycin Level 7.4 COMMENT Urine Squamous Epithelial Cells <1 /hpf Test 10/21/16 09:20 10/25/16 11:10 11/06/16 20:00 11/08/16 04:45 CSF Volume (Tube 1) 9.0 ML CSF Supernatant Color (tube 1) CLEAR CSF Gross Blood (Tube 1) TRACE CSF WBC (Tube 1) 4 /MM3 CSF RBC (Tube 1) 112 /MM3 CSF Neutrophils 10 % CSF Lymphocytes 60 % CSF Monocytes 30 % CSF Glucose 112 MG/DL CSF Total Protein 28.8 MG/DL Urine Osmolality 290 MOSM/KG Urine Random Sodium 119 MEQ/L Serum Osmolality 303 MOSM/KG Blood Urea Nitrogen 16 MG/DL 10 MG/DL Creatinine 0.71 MG/DL 0.69 MG/DL Random Glucose 127 MG/DL 100 MG/DL Total Protein 6.6 GM/DL Albumin 2.3 GM/DL Calcium Level 7.8 MG/DL 8.2 MG/DL Magnesium Level 2.3 MG/DL 2.0 MG/DL Uric Acid 2.5 MG/DL Alkaline Phosphatase 67 U/L Aspartate Amino Transf (AST/SGOT) 28 U/L Alanine Aminotransferase (ALT/SGPT) 67 U/L Total Bilirubin 0.5 MG/DL Sodium Level 147 MEQ/L 148 MEQ/L Potassium Level 3.4 MEQ/L 3.7 MEQ/L Chloride Level 112 MEQ/L 114 MEQ/L Carbon Dioxide Level 26.0 MEQ/L 27.1 MEQ/L Protein Corrected Calcium 7.8 MG/DL Ovalocytes 1+ Acanthocytes OCC Phosphorus Level 3.0 MG/DL Test 11/14/16 06:00 11/17/16 08:11 01/18/17 18:19 01/20/17 09:35 Urine Transitional Epithelial Cells <1 /hpf Urine Calcium Oxalate Crystals RARE /hpf Urine Bacteria RARE /hpf Urine Hyaline Casts 11 /lpf Stool C. difficile Toxin (PCR) NEGATIVE Stl C. difficile Toxin Epiderm 027 PRESUMPTIVE NEGATIVE Ammonia 26 MCMOL/L Urine Mucus FEW /lpf Test 02/06/17 08:20 02/17/17 09:45 02/17/17 18:04 02/18/17 17:10 Levetiracetam (Keppra) Level <2.0 mcg/mL Urine Color LIGHT-YELLOW Urine Turbidity CLEAR Urine pH 6.5 Urine Specific [place] 1.009 Urine Protein NEG mg/dL Urine Glucose (UA) NEG mg/dL Urine Ketones NEG mg/dL Urine Occult Blood NEG Urine Nitrite NEG Urine Bilirubin NEG Urine Urobilinogen LESS THAN 2.0 MG/DL Urine Leukocyte Esterase NEG Urine RBC LESS THAN 1 /hpf Urine WBC 1 /hpf Microscopic Urinalysis Comment CULT NOT INDICATED Blood Urea Nitrogen 18 MG/DL Creatinine 1.17 MG/DL Random Glucose 81 MG/DL Total Protein 7.1 GM/DL Albumin 3.6 GM/DL Calcium Level 8.5 MG/DL Alkaline Phosphatase 58 U/L Aspartate Amino Transf (AST/SGOT) 11 U/L Alanine Aminotransferase (ALT/SGPT) 24 U/L Total Bilirubin 0.4 MG/DL Sodium Level 141 MEQ/L Potassium Level 4.1 MEQ/L Chloride Level 110 MEQ/L Carbon Dioxide Level 24.8 MEQ/L Lipase 85 U/L Troponin I LESS THAN 0.02 NG/ML Test 03/08/17 08:58 03/29/17 11:00 04/10/17 07:47 Blood Urea Nitrogen 16 MG/DL 18 MG/DL Creatinine 1.30 MG/DL 1.36 MG/DL Random Glucose 120 MG/DL 72 MG/DL Calcium Level 9.0 MG/DL 9.0 MG/DL Magnesium Level 2.2 MG/DL Sodium Level 143 MEQ/L 144 MEQ/L Potassium Level 4.0 MEQ/L 3.8 MEQ/L Chloride Level 109 MEQ/L 108 MEQ/L Carbon Dioxide Level 27.0 MEQ/L 26.1 MEQ/L Neutrophils (%) (Auto) 63.6 % Lymphocytes (%) (Auto) 23.0 % Monocytes (%) (Auto) 9.3 % Eosinophils (%) (Auto) 2.9 % Basophils (%) (Auto) 1.2 % Neutrophils # (Auto) 4.0 TH/MM3 Lymphocytes # (Auto) 1.4 TH/MM3 Monocytes # (Auto) 0.6 TH/MM3 Eosinophils # (Auto) 0.2 TH/MM3 Basophils # (Auto) 0.1 TH/MM3 CBC Comment DIFF FINAL Differential Comment White Blood Count 5.7 TH/MM3 Red Blood Count 4.66 MIL/MM3 Hemoglobin 13.7 GM/DL Hematocrit 41.1 % Mean Corpuscular Volume 88.1 FL Mean Corpuscular Hemoglobin 29.5 PG Mean Corpuscular Hemoglobin Concent 33.5 % Red Cell Distribution Width 14.3 % Platelet Count 196 TH/MM3 Mean Platelet Volume 9.3 FL Anion Gap 10 MEQ/L Estimat Glomerular Filtration Rate 55 ML/MIN Objective Remarks GENERAL: Well-nourished, well-developed male patient, in no apparent distress. Awake and alert. Sitting up at nurses station. Appears comfortable. SKIN: No rash. Warm and dry. HEENT: Normocephalic. Extraocular motions intact. No scleral icterus. No injection or drainage. Nose without bleeding. MMM. Airway patent. NECK: Trachea midline. Supple. CARDIOVASCULAR: RRR. No murmur appreciated. RESPIRATORY: Nonlabored. Clear to auscultation. Breath sounds equal bilaterally. No wheezes, rales, or rhonchi. GASTROINTESTINAL: Abdomen soft, nondistended and nontender. BS x 4. MUSCULOSKELETAL: Extremities without clubbing, cyanosis, or edema. NEUROLOGICAL: Awake and alert. Oriented to self only. Moves all 4 extremities spontaneously. Motor and sensory function grossly intact. Normal speech. Medications and IVs Current Medications Medications (Trade) Dose Ordered Sig/Nava Route Start Time Stop Time Status Last Admin (Tylenol) 650 mg Q6H PRN PO 10/05/16 02:45 04/04/17 20:54 (Zofran Inj) 4 mg Q6H PRN IV 10/05/16 02:45 11/27/16 23:26 Miscellaneous Information 1 Q361D XX 10/05/16 02:45 10/05/16 02:45 (Pravachol) 40 mg DAILY PO 10/05/16 09:00 04/11/17 09:05 (Lovenox Inj) 40 mg Q24H SQ 10/23/16 21:00 Future hold 04/10/17 21:03 (Trandate) 100 mg Q8H PO 11/03/16 20:00 04/11/17 03:33 (Norvasc) 5 mg DAILY PO 11/04/16 09:00 04/11/17 09:05 (Imodium) 2 mg UNSCH PRN PO 11/09/16 09:45 11/29/16 12:57 (Lomotil Tab) 1 tab Q6H PRN PO 11/09/16 09:45 (Lactulose Liq) 30 ml QID PRN PO 12/09/16 13:45 (Protonix) 40 mg DAILY PO 12/16/16 09:00 04/11/17 09:06 (Benadryl) 50 mg Q6H PRN PO 12/20/16 17:45 04/09/17 22:42 (Colace) 100 mg Q12H PRN PO 02/12/17 00:15 (Duoneb Neb) 1 ampule Q4HR NEB PRN INH 02/12/17 12:00 (KCl) 40 meq DAILY PO 02/13/17 09:00 04/11/17 09:05 (Tonie-Colace) 1 tab BID PO 02/18/17 09:30 04/11/17 09:05 (SEROquel) 200 mg BID@09,12 PO 02/24/17 09:00 04/11/17 09:05 (Lactulose Liq) 30 ml DAILY PO 03/16/17 10:45 04/11/17 09:05 A/P Assessment and Plan Mr. Nunez is a 51 year old male who was brought to the hospital as a trauma alert due to head injury after he fell in the bathroom and hit his head. Patient was unresponsive for approximately 15 minutes by the time ambulance services arrived. His mentation waxed and waned with GCS ranging from [address] head indicated subarachnoid hemorrhage, acute. Intracranial hemorrhage, status post basilar artery coiling 10/05, Status post ART TEACHER shunt on 11/24/2016 Chronic encephalopathy Hydrocephalus Cortical blindness - Neurology signed off. Neuropsychology following patient ultimately for discharge placement and assistance with recommendations. Per neuropsychology note, ongoing areas of concern include behavioral impulsivity, lack of insight and judgement. - Speech therapy recommends regular diet with thin liquids. Patient is eating well. PEG dc'd 01/08/17. - Continue Seroquel 100mg BID per psychiatry HTN - controlled - continue on Norvasc 5mg daily and Labetalol 100mg q8h Acute hypoxic hypercarbic respiratory failure, resolved - Tracheostomy 10/23/16, removed, old trach site healed. - Monitor respiratory status - stable on RA C. difficile colitis, resolved - Completed Flagyl on 10/23 - No diarrhea reported - off Lactinex DVT prophylaxis: SCDs, YOUSIF hose, Lovenox. Ambulation. GI prophylaxis: Protonix. No changes to anterior assessment. Discharge Planning 04/07/17- Pt now has [facility] Medicaid. Josiah Aguirre/[place] (the plan in previous CM notes)- he is unaware of this pt. Opened the portal and submitted to [employer] for review. Luciano Gomez MD Apr 11, 2017 09:24
[2017-04-11 11:59] VITALS: BP_SYST 127; BP_SYST 128; BP_DIAS 66; BP_DIAS 76; PULSE 77; PULSE 91; RESP 20; TEMP 97.6; TEMP 98; O2SAT 93; O2SAT 95
[2017-04-11 16:38] VITALS: BP 113/72; PULSE 88; RESP 20; TEMP 97.9; O2SAT 92
[2017-04-11 20:10] VITALS: BP 129/77; PULSE 99; RESP 17; TEMP 98.3; O2SAT 95
[2017-04-11] MEDS: ENOXAPARIN SODIUM 40 MG/0.4 ML SYRINGE SQ SCH (21:34)
[2017-04-12 00:18] VITALS: BP 123/78; PULSE 94; RESP 17; TEMP 98.6; O2SAT 95
[2017-04-12 04:43] VITALS: BP 131/75; PULSE 82; RESP 17; TEMP 97.9; O2SAT 95
[2017-04-12] MEDS: LABETALOL HCL 100 MG TAB PO SCH ×3 (04:45→21:38)
[2017-04-12 08:00] VITALS: BP 139/77; PULSE 84; RESP 20; TEMP 97.2; O2SAT 95
[2017-04-12] MEDS: LACTULOSE SYRUP 20 GM/30 ML CUP PO SCH (08:40)
[2017-04-12] MEDS: PANTOPRAZOLE SOD 40 MG DELAYED RELEASE TAB PO SCH (08:40)
[2017-04-12] MEDS: QUEtiapine FUMARATE 100 MG TAB PO SCH ×2 (08:40→11:59)
[2017-04-12] MEDS: POTASSIUM CHLORIDE 20 MEQ CONTROLLED RELEASE TAB PO SCH (08:40)
[2017-04-12] MEDS: DOCUSATE SODIUM 50 MG/SENNA 8.6 MG TAB PO SCH ×2 (08:41→21:38)
[2017-04-12] MEDS: PRAVASTATIN SOD 40 MG TAB PO SCH (08:41)
[2017-04-12] MEDS: amLODIPine BESYLATE 5 MG TAB PO SCH (08:41)
--- NOTE | 2017-04-12 09:16 | HHI.PR ---
Subjective Remarks Follow up on patient with intracranial hemorrhage, basilar tip aneurysm s/p C[employer]ODIAL SERVICES MANAGER shunt. Stable no new issues, Objective Vital Signs Date Time Temp Pulse Resp B/P (MAP) Pulse Ox O2 Delivery O2 Flow Rate FiO2 04/12/17 08:00 97.2 84 20 139/77 (97) 95 04/12/17 04:43 97.9 82 17 131/75 (93) 95 04/12/17 00:18 98.6 94 17 123/78 (93) 95 04/11/17 20:10 98.3 99 17 129/77 (94) 95 04/11/17 16:38 97.9 88 20 113/72 (86) 92 04/11/17 11:59 97.6 91 20 127/76 (93) 93 I/O 04/11/17 04/11/17 04/11/17 04/12/17 04/12/17 04/12/17 07:00 15:00 23:00 07:00 15:00 23:00 Intake Total 500 ml 1320 ml 240 ml Balance 500 ml 1320 ml 240 ml Intake Oral 500 ml 1320 ml 240 ml # Voids 3 5 3 # Bowel Movements 1 Result Diagram: 04/10/17 0747 04/10/17 0747 Imaging Last Impressions Chest X-Ray 02/18/17 0000 Signed Impressions: Service Date/Time: Saturday, February 18, 2017 10:51 - CONCLUSION: Diminished lung volumes. No infiltrate. Tyrese Raymond MD Abdomen X-Ray 02/18/17 0000 Signed Impressions: Service Date/Time: Saturday, February 18, 2017 10:56 - CONCLUSION: Unremarkable abdomen. Tyrese Raymond MD Gall Bladder Ultrasound 02/17/17 0000 Signed Impressions: Service Date/Time: Friday, February 17, 2017 17:45 - CONCLUSION: Mildly enlarged liver and small amount of gallbladder sludge. Tim Hammonds MD Head CT 12/09/16 0000 Signed Impressions: Service Date/Time: Friday, December 09, 2016 17:36 - CONCLUSION: 1. Right ventriculostomy tube remains in place with decrease in ventricular size since November 24. There is some encephalomalacia around the shunt and a probable small infarct in the left basal ganglia. No new hemorrhage or shift. Tip Harris MD Transcranial Doppler Study Complete 10/26/16 0700 Signed Impressions: Service Date/Time: Wednesday, October 26, 2016 08:20 - CONCLUSION: Minimal interval improvement with no evidence for vasospasm. Christian Song MD FACR Neck CTA 10/19/16 0000 Signed Impressions: Service Date/Time: Wednesday, October 19, 2016 14:19 - CONCLUSION: Negative for dissection or significant stenosis. Christian Song MD FACR Head CTA 10/19/16 0000 Signed Impressions: Service Date/Time: Wednesday, October 19, 2016 14:19 - CONCLUSION: 1. Interval development of significant vasospasm in the left MCA and SRI territories. 2. Mild vasospasm in the basilar artery.. Gume Mckeon MD Cerebral Arteriogram 10/19/16 0000 Signed Impressions: Service Date/Time: Wednesday, October 19, 2016 16:06 - CONCLUSION: 1. Vasospasm in the left MCA and SRI territories 2. Spasmolytic infusion, left internal carotid artery as above.. 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 Gume Mckeon MD Pelvis X-Ray 10/05/16109 Signed Impressions: Service Date/Time: Wednesday, October 05, 2016 01:22 - CONCLUSION: Unremarkable examination of the pelvis. Ruben Acuña Jr., MD Chest CT 10/05/16109 Signed Impressions: Service Date/Time: Wednesday, October 05, 2016 01:46 - CONCLUSION: 1. No acute intrathoracic abnormality. 2. Bibasilar atelectasis. 3. Cardiomegaly. 4. Prior granulomatous disease. Ruben Acuña Jr., MD Cervical Spine CT 10/05/16109 Signed Impressions: Service Date/Time: Wednesday, October 05, 2016 01:40 - CONCLUSION: 1. No fracture or dislocation. 2. Multilevel degenerative changes. Ruben Acuña Jr., MD Abdomen/Pelvis CT 10/05/16109 Signed Impressions: Service Date/Time: Wednesday, October 05, 2016 01:46 - CONCLUSION: 1. No acute trauma. 2. Rounded area of decreased density involving the pancreatic head. I cannot completely exclude pancreatic head mass. At some point MRI of the pancreas is suggested to further evaluate. 3. Focal area of poor enhancement involving the left kidney. This may relate to an area of parenchymal scarring. I cannot completely exclude a mass. This can be further assessed with MRI as well. Ruben Acuña Jr., MD Procedures 10/05/16 right frontal twist drill for ventriculostomy placement 10/20/16 arterial line placement 10/23/16 bedside percutaneous tracheostomy under direct bronchoscopic visualization 10/24/16 PEG tube placement at bedside Other Results Laboratory Tests Test 10/05/16 00:15 10/05/16 02:45 10/05/16 17:15 10/06/16 03:45 Bedside Hemoglobin 15.6 G/DL Bedside Hematocrit 46.0 % Eosinophils % 5 % Basophils % 2 % Atypical Lymphocytes % Activated Partial Thromboplast Time 21.0 SEC Fibrinogen 249 mg/dL Bedside Sodium 146 MMOL/L Bedside Potassium 4.4 MMOL/L Bedside Chloride 105 MMOL/L Bedside Blood Urea Nitrogen 30 MG/DL Bedside Creatinine 1.3 MG/DL Bedside Glucose 145 MG/DL Ethyl Alcohol Level LESS THAN 3 MG/DL Nasal Screen MRSA (PCR) NEGATIVE Urine Opiates Screen NEG Urine Barbiturates Screen NEG Urine Amphetamines Screen NEG Urine Benzodiazepines Screen NEG Urine Cocaine Screen NEG Urine Cannabinoids Screen NEG Blood Gas Puncture Site ART LINE Blood Gas Patient Temperature 98.6 Blood Gas HCO3 23 mmol/L Blood Gas Base Excess -1.0 mmol/L Blood Gas Oxygen Saturation 98 % Arterial Blood pH 7.40 Arterial Blood Partial Pressure CO2 38 mmHg Arterial Blood Partial Pressure O2 235 mmHg Arterial Blood Oxygen Content 17.9 Vol % Arterial Blood Carboxyhemoglobin 1.1 % Arterial Blood Methemoglobin 1.0 % Blood Gas Hemoglobin 12.7 G/DL Oxygen Delivery Device VENTILATOR Blood Gas Ventilator Setting [id number]/RR14/VT700/[id number] Blood Gas Inspired Oxygen 80 % Prothrombin Time 10.9 SEC Prothromb Time International Ratio 1.0 RATIO Lactic Acid Level 1.1 mmol/L Test 10/12/16 01:45 10/12/16 04:45 10/14/16 05:15 10/20/16 12:55 Urine WBC Clumps MANY Differential Total Cells Counted 100 Neutrophils % (Manual) 77 % Band Neutrophils % 16 % Lymphocytes % 5 % Monocytes % 2 % Neutrophils # (Manual) 22.6 TH/MM3 Platelet Estimate NORMAL Platelet Morphology Comment NORMAL Red Cell Morphology Comment NORMAL Random Vancomycin Level 7.4 COMMENT Urine Squamous Epithelial Cells <1 /hpf Test 10/21/16 09:20 10/25/16 11:10 11/06/16 20:00 11/08/16 04:45 CSF Volume (Tube 1) 9.0 ML CSF Supernatant Color (tube 1) CLEAR CSF Gross Blood (Tube 1) TRACE CSF WBC (Tube 1) 4 /MM3 CSF RBC (Tube 1) 112 /MM3 CSF Neutrophils 10 % CSF Lymphocytes 60 % CSF Monocytes 30 % CSF Glucose 112 MG/DL CSF Total Protein 28.8 MG/DL Urine Osmolality 290 MOSM/KG Urine Random Sodium 119 MEQ/L Serum Osmolality 303 MOSM/KG Blood Urea Nitrogen 16 MG/DL 10 MG/DL Creatinine 0.71 MG/DL 0.69 MG/DL Random Glucose 127 MG/DL 100 MG/DL Total Protein 6.6 GM/DL Albumin 2.3 GM/DL Calcium Level 7.8 MG/DL 8.2 MG/DL Magnesium Level 2.3 MG/DL 2.0 MG/DL Uric Acid 2.5 MG/DL Alkaline Phosphatase 67 U/L Aspartate Amino Transf (AST/SGOT) 28 U/L Alanine Aminotransferase (ALT/SGPT) 67 U/L Total Bilirubin 0.5 MG/DL Sodium Level 147 MEQ/L 148 MEQ/L Potassium Level 3.4 MEQ/L 3.7 MEQ/L Chloride Level 112 MEQ/L 114 MEQ/L Carbon Dioxide Level 26.0 MEQ/L 27.1 MEQ/L Protein Corrected Calcium 7.8 MG/DL Ovalocytes 1+ Acanthocytes OCC Phosphorus Level 3.0 MG/DL Test 11/14/16 06:00 11/17/16 08:11 01/18/17 18:19 01/20/17 09:35 Urine Transitional Epithelial Cells <1 /hpf Urine Calcium Oxalate Crystals RARE /hpf Urine Bacteria RARE /hpf Urine Hyaline Casts 11 /lpf Stool C. difficile Toxin (PCR) NEGATIVE Stl C. difficile Toxin Epiderm 027 PRESUMPTIVE NEGATIVE Ammonia 26 MCMOL/L Urine Mucus FEW /lpf Test 02/06/17 08:20 02/17/17 09:45 02/17/17 18:04 02/18/17 17:10 Levetiracetam (Keppra) Level <2.0 mcg/mL Urine Color LIGHT-YELLOW Urine Turbidity CLEAR Urine pH 6.5 Urine Specific Bruni 1.009 Urine Protein NEG mg/dL Urine Glucose (UA) NEG mg/dL Urine Ketones NEG mg/dL Urine Occult Blood NEG Urine Nitrite NEG Urine Bilirubin NEG Urine Urobilinogen LESS THAN 2.0 MG/DL Urine Leukocyte Esterase NEG Urine RBC LESS THAN 1 /hpf Urine WBC 1 /hpf Microscopic Urinalysis Comment CULT NOT INDICATED Blood Urea Nitrogen 18 MG/DL Creatinine 1.17 MG/DL Random Glucose 81 MG/DL Total Protein 7.1 GM/DL Albumin 3.6 GM/DL Calcium Level 8.5 MG/DL Alkaline Phosphatase 58 U/L Aspartate Amino Transf (AST/SGOT) 11 U/L Alanine Aminotransferase (ALT/SGPT) 24 U/L Total Bilirubin 0.4 MG/DL Sodium Level 141 MEQ/L Potassium Level 4.1 MEQ/L Chloride Level 110 MEQ/L Carbon Dioxide Level 24.8 MEQ/L Lipase 85 U/L Troponin I LESS THAN 0.02 NG/ML Test 03/08/17 08:58 03/29/17 11:00 04/10/17 07:47 Blood Urea Nitrogen 16 MG/DL 18 MG/DL Creatinine 1.30 MG/DL 1.36 MG/DL Random Glucose 120 MG/DL 72 MG/DL Calcium Level 9.0 MG/DL 9.0 MG/DL Magnesium Level 2.2 MG/DL Sodium Level 143 MEQ/L 144 MEQ/L Potassium Level 4.0 MEQ/L 3.8 MEQ/L Chloride Level 109 MEQ/L 108 MEQ/L Carbon Dioxide Level 27.0 MEQ/L 26.1 MEQ/L Neutrophils (%) (Auto) 63.6 % Lymphocytes (%) (Auto) 23.0 % Monocytes (%) (Auto) 9.3 % Eosinophils (%) (Auto) 2.9 % Basophils (%) (Auto) 1.2 % Neutrophils # (Auto) 4.0 TH/MM3 Lymphocytes # (Auto) 1.4 TH/MM3 Monocytes # (Auto) 0.6 TH/MM3 Eosinophils # (Auto) 0.2 TH/MM3 Basophils # (Auto) 0.1 TH/MM3 CBC Comment DIFF FINAL Differential Comment White Blood Count 5.7 TH/MM3 Red Blood Count 4.66 MIL/MM3 Hemoglobin 13.7 GM/DL Hematocrit 41.1 % Mean Corpuscular Volume 88.1 FL Mean Corpuscular Hemoglobin 29.5 PG Mean Corpuscular Hemoglobin Concent 33.5 % Red Cell Distribution Width 14.3 % Platelet Count 196 TH/MM3 Mean Platelet Volume 9.3 FL Anion Gap 10 MEQ/L Estimat Glomerular Filtration Rate 55 ML/MIN Objective Remarks GENERAL: Well-nourished, well-developed male patient, in no apparent distress. Awake and alert. Sitting up at nurses station. Appears comfortable. SKIN: No rash. Warm and dry. HEENT: Normocephalic. Extraocular motions intact. No scleral icterus. No injection or drainage. Nose without bleeding. MMM. Airway patent. NECK: Trachea midline. Supple. CARDIOVASCULAR: RRR. No murmur appreciated. RESPIRATORY: Nonlabored. Clear to auscultation. Breath sounds equal bilaterally. No wheezes, rales, or rhonchi. GASTROINTESTINAL: Abdomen soft, nondistended and nontender. BS x 4. MUSCULOSKELETAL: Extremities without clubbing, cyanosis, or edema. NEUROLOGICAL: Awake and alert. Oriented to self only. Moves all 4 extremities spontaneously. Motor and sensory function grossly intact. Normal speech. Medications and IVs Current Medications Medications (Trade) Dose Ordered Sig/Nava Route Start Time Stop Time Status Last Admin (Tylenol) 650 mg Q6H PRN PO 10/05/16 02:45 04/04/17 20:54 (Zofran Inj) 4 mg Q6H PRN IV 10/05/16 02:45 11/27/16 23:26 Miscellaneous Information 1 Q361D XX 10/05/16 02:45 10/05/16 02:45 (Pravachol) 40 mg DAILY PO 10/05/16 09:00 04/12/17 08:41 (Lovenox Inj) 40 mg Q24H SQ 10/23/16 21:00 Future hold 04/11/17 21:34 (Trandate) 100 mg Q8H PO 11/03/16 20:00 04/12/17 04:45 (Norvasc) 5 mg DAILY PO 11/04/16 09:00 04/12/17 08:41 (Imodium) 2 mg UNSCH PRN PO 11/09/16 09:45 11/29/16 12:57 (Lomotil Tab) 1 tab Q6H PRN PO 11/09/16 09:45 (Lactulose Liq) 30 ml QID PRN PO 12/09/16 13:45 (Protonix) 40 mg DAILY PO 12/16/16 09:00 04/12/17 08:40 (Benadryl) 50 mg Q6H PRN PO 12/20/16 17:45 04/09/17 22:42 (Colace) 100 mg Q12H PRN PO 02/12/17 00:15 (Duoneb Neb) 1 ampule Q4HR NEB PRN INH 02/12/17 12:00 (KCl) 40 meq DAILY PO 02/13/17 09:00 04/12/17 08:40 (Tonie-Colace) 1 tab BID PO 02/18/17 09:30 04/12/17 08:41 (SEROquel) 200 mg BID@09,12 PO 02/24/17 09:00 04/12/17 08:40 (Lactulose Liq) 30 ml DAILY PO 03/16/17 10:45 04/12/17 08:40 A/P Assessment and Plan Mr. Nunez is a 51 year old male who was brought to the hospital as a trauma alert due to head injury after he fell in the bathroom and hit his head. Patient was unresponsive for approximately 15 minutes by the time ambulance services arrived. His mentation waxed and waned with GCS ranging from [address] head indicated subarachnoid hemorrhage, acute. Intracranial hemorrhage, status post basilar artery coiling 10/05, Status post CUSTODIAL SERVICES MANAGER shunt on 11/24/2016 Chronic encephalopathy Hydrocephalus Cortical blindness - Neurology signed off. Neuropsychology following patient ultimately for discharge placement and assistance with recommendations. Per neuropsychology note, ongoing areas of concern include behavioral impulsivity, lack of insight and judgement. - Speech therapy recommends regular diet with thin liquids. Patient is eating well. PEG dc'd 01/08/17. - Continue Seroquel 100mg BID per psychiatry HTN - controlled - continue on Norvasc 5mg daily and Labetalol 100mg q8h Acute hypoxic hypercarbic respiratory failure, resolved - Tracheostomy 10/23/16, removed, old trach site healed. - Monitor respiratory status - stable on RA C. difficile colitis, resolved - Completed Flagyl on 10/23 - No diarrhea reported - off Lactinex DVT prophylaxis: SCDs, YOUSIF hose, Lovenox. Ambulation. GI prophylaxis: Protonix. No changes to anterior assessment. Discharge Planning 04/07/17- Pt now has [facility] Medicaid. Josiah Aguirre/[place] (the plan in previous CM notes)- he is unaware of this pt. Opened the portal and submitted to [employer] for review. Luciano Gomez MD Apr 12, 2017 09:16
[2017-04-12 11:51] VITALS: BP 127/83; PULSE 100; RESP 20; TEMP 97.9; O2SAT 93
[2017-04-12 15:36] VITALS: BP 107/68; PULSE 104; RESP 20; TEMP 98.3; O2SAT 96
[2017-04-12 20:00] VITALS: BP 120/80; PULSE 97; RESP 18; TEMP 98.2; O2SAT 91
[2017-04-12] MEDS: diphenhydrAMINE HCL 50 MG CAP PO PRN (21:00)
[2017-04-12] MEDS: ENOXAPARIN SODIUM 40 MG/0.4 ML SYRINGE SQ SCH (21:38)
[2017-04-13] VITALS: BP 120/80; PULSE 97; RESP 18; TEMP 98.2; O2SAT 91
[2017-04-13 04:00] VITALS: BP 136/80; PULSE 64; RESP 18; TEMP 97.6; O2SAT 95
[2017-04-13] MEDS: LABETALOL HCL 100 MG TAB PO SCH ×3 (04:46→21:20)
[2017-04-13] MEDS: PRAVASTATIN SOD 40 MG TAB PO SCH (08:00)
[2017-04-13] MEDS: POTASSIUM CHLORIDE 20 MEQ CONTROLLED RELEASE TAB PO SCH (08:00)
[2017-04-13] MEDS: QUEtiapine FUMARATE 100 MG TAB PO SCH ×2 (08:00→12:18)
[2017-04-13] MEDS: amLODIPine BESYLATE 5 MG TAB PO SCH (08:00)
[2017-04-13] MEDS: DOCUSATE SODIUM 50 MG/SENNA 8.6 MG TAB PO SCH ×2 (08:00→21:20)
[2017-04-13] MEDS: LACTULOSE SYRUP 20 GM/30 ML CUP PO SCH (08:00)
[2017-04-13] MEDS: PANTOPRAZOLE SOD 40 MG DELAYED RELEASE TAB PO SCH (08:01)
[2017-04-13 08:16] VITALS: BP 130/85; PULSE 93; RESP 20; TEMP 98.2; O2SAT 95
[2017-04-13 11:35] VITALS: BP 125/79; PULSE 88; RESP 20; TEMP 97.3; O2SAT 94
--- NOTE | 2017-04-13 13:18 | HHI.PR ---
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 Seen in his bedroom, discussed with nurse Miss Shin no new issues. Objective Vital Signs Date Time Temp Pulse Resp B/P (MAP) Pulse Ox O2 Delivery O2 Flow Rate FiO2 04/13/17 11:35 97.3 88 20 125/79 (94) 94 04/13/17 08:16 98.2 93 20 130/85 (100) 95 04/13/17 04:00 97.6 64 18 136/80 (98) 95 04/13/17 00:00 98.2 97 18 120/80 (93) 91 04/12/17 20:00 98.2 97 18 120/80 (93) 91 04/12/17 15:36 98.3 104 20 107/68 (81) 96 I/O 04/12/17 04/12/17 04/12/17 04/13/17 04/13/17 04/13/17 06:59 14:59 22:59 06:59 14:59 22:59 Intake Total 240 ml 720 ml Balance 240 ml 720 ml Intake Oral 240 ml 720 ml # Voids 3 2 3 2 # Bowel Movements 0 Result Diagram: 04/10/17 0747 04/10/17 0747 Imaging Last Impressions Chest X-Ray 02/18/17 0000 Signed Impressions: Service Date/Time: Saturday, February 18, 2017 10:51 - CONCLUSION: Diminished lung volumes. No infiltrate. Tyrese Raymond MD Abdomen X-Ray 02/18/17 0000 Signed Impressions: Service Date/Time: Saturday, February 18, 2017 10:56 - CONCLUSION: Unremarkable abdomen. Tyrese Raymond MD Gall Bladder Ultrasound 02/17/17 0000 Signed Impressions: Service Date/Time: Friday, February 17, 2017 17:45 - CONCLUSION: Mildly enlarged liver and small amount of gallbladder sludge. Tim Hammonds MD Head CT 12/09/16 0000 Signed Impressions: Service Date/Time: Friday, December 09, 2016 17:36 - CONCLUSION: 1. Right ventriculostomy tube remains in place with decrease in ventricular size since November 24. There is some encephalomalacia around the shunt and a probable small infarct in the left basal ganglia. No new hemorrhage or shift. Tip Harris MD Transcranial Doppler Study Complete 10/26/16 0700 Signed Impressions: Service Date/Time: Wednesday, October 26, 2016 08:20 - CONCLUSION: Minimal interval improvement with no evidence for vasospasm. Christian Song MD FACR Neck CTA 10/19/16 0000 Signed Impressions: Service Date/Time: Wednesday, October 19, 2016 14:19 - CONCLUSION: Negative for dissection or significant stenosis. Christian Song MD FACR Head CTA 10/19/16 0000 Signed Impressions: Service Date/Time: Wednesday, October 19, 2016 14:19 - CONCLUSION: 1. Interval development of significant vasospasm in the left MCA and SRI territories. 2. Mild vasospasm in the basilar artery.. Gume Mckeon MD Cerebral Arteriogram 10/19/16 0000 Signed Impressions: Service Date/Time: Wednesday, October 19, 2016 16:06 - CONCLUSION: 1. Vasospasm in the left MCA and SRI territories 2. Spasmolytic infusion, left internal carotid artery as above.. 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 Gume Mckeon MD Pelvis X-Ray 10/05/16109 Signed Impressions: Service Date/Time: Wednesday, October 05, 2016 01:22 - CONCLUSION: Unremarkable examination of the pelvis. Ruben Acuña Jr., MD Chest CT 10/05/16109 Signed Impressions: Service Date/Time: Wednesday, October 05, 2016 01:46 - CONCLUSION: 1. No acute intrathoracic abnormality. 2. Bibasilar atelectasis. 3. Cardiomegaly. 4. Prior granulomatous disease. Ruben Acuña Jr., MD Cervical Spine CT 10/05/16109 Signed Impressions: Service Date/Time: Wednesday, October 05, 2016 01:40 - CONCLUSION: 1. No fracture or dislocation. 2. Multilevel degenerative changes. Ruben Acuña Jr., MD Abdomen/Pelvis CT 10/05/16109 Signed Impressions: Service Date/Time: Wednesday, October 05, 2016 01:46 - CONCLUSION: 1. No acute trauma. 2. Rounded area of decreased density involving the pancreatic head. I cannot completely exclude pancreatic head mass. At some point MRI of the pancreas is suggested to further evaluate. 3. Focal area of poor enhancement involving the left kidney. This may relate to an area of parenchymal scarring. I cannot completely exclude a mass. This can be further assessed with MRI as well. Ruben Acuña Jr., MD Procedures 10/05/16 right frontal twist drill for ventriculostomy placement 10/20/16 arterial line placement 10/23/16 bedside percutaneous tracheostomy under direct bronchoscopic visualization 10/24/16 PEG tube placement at bedside Other Results Laboratory Tests Test 10/05/16 00:15 10/05/16 02:45 10/05/16 17:15 10/06/16 03:45 Bedside Hemoglobin 15.6 G/DL Bedside Hematocrit 46.0 % Eosinophils % 5 % Basophils % 2 % Atypical Lymphocytes % Activated Partial Thromboplast Time 21.0 SEC Fibrinogen 249 mg/dL Bedside Sodium 146 MMOL/L Bedside Potassium 4.4 MMOL/L Bedside Chloride 105 MMOL/L Bedside Blood Urea Nitrogen 30 MG/DL Bedside Creatinine 1.3 MG/DL Bedside Glucose 145 MG/DL Ethyl Alcohol Level LESS THAN 3 MG/DL Nasal Screen MRSA (PCR) NEGATIVE Urine Opiates Screen NEG Urine Barbiturates Screen NEG Urine Amphetamines Screen NEG Urine Benzodiazepines Screen NEG Urine Cocaine Screen NEG Urine Cannabinoids Screen NEG Blood Gas Puncture Site ART LINE Blood Gas Patient Temperature 98.6 Blood Gas HCO3 23 mmol/L Blood Gas Base Excess -1.0 mmol/L Blood Gas Oxygen Saturation 98 % Arterial Blood pH 7.40 Arterial Blood Partial Pressure CO2 38 mmHg Arterial Blood Partial Pressure O2 235 mmHg Arterial Blood Oxygen Content 17.9 Vol % Arterial Blood Carboxyhemoglobin 1.1 % Arterial Blood Methemoglobin 1.0 % Blood Gas Hemoglobin 12.7 G/DL Oxygen Delivery Device VENTILATOR Blood Gas Ventilator Setting [id number]/VT700/[id number] Blood Gas Inspired Oxygen 80 % Prothrombin Time 10.9 SEC Prothromb Time International Ratio 1.0 RATIO Lactic Acid Level 1.1 mmol/L Test 10/12/16 01:45 10/12/16 04:45 10/14/16 05:15 10/20/16 12:55 Urine WBC Clumps MANY Differential Total Cells Counted 100 Neutrophils % (Manual) 77 % Band Neutrophils % 16 % Lymphocytes % 5 % Monocytes % 2 % Neutrophils # (Manual) 22.6 TH/MM3 Platelet Estimate NORMAL Platelet Morphology Comment NORMAL Red Cell Morphology Comment NORMAL Random Vancomycin Level 7.4 COMMENT Urine Squamous Epithelial Cells <1 /hpf Test 10/21/16 09:20 10/25/16 11:10 11/06/16 20:00 11/08/16 04:45 CSF Volume (Tube 1) 9.0 ML CSF Supernatant Color (tube 1) CLEAR CSF Gross Blood (Tube 1) TRACE CSF WBC (Tube 1) 4 /MM3 CSF RBC (Tube 1) 112 /MM3 CSF Neutrophils 10 % CSF Lymphocytes 60 % CSF Monocytes 30 % CSF Glucose 112 MG/DL CSF Total Protein 28.8 MG/DL Urine Osmolality 290 MOSM/KG Urine Random Sodium 119 MEQ/L Serum Osmolality 303 MOSM/KG Blood Urea Nitrogen 16 MG/DL 10 MG/DL Creatinine 0.71 MG/DL 0.69 MG/DL Random Glucose 127 MG/DL 100 MG/DL Total Protein 6.6 GM/DL Albumin 2.3 GM/DL Calcium Level 7.8 MG/DL 8.2 MG/DL Magnesium Level 2.3 MG/DL 2.0 MG/DL Uric Acid 2.5 MG/DL Alkaline Phosphatase 67 U/L Aspartate Amino Transf (AST/SGOT) 28 U/L Alanine Aminotransferase (ALT/SGPT) 67 U/L Total Bilirubin 0.5 MG/DL Sodium Level 147 MEQ/L 148 MEQ/L Potassium Level 3.4 MEQ/L 3.7 MEQ/L Chloride Level 112 MEQ/L 114 MEQ/L Carbon Dioxide Level 26.0 MEQ/L 27.1 MEQ/L Protein Corrected Calcium 7.8 MG/DL Ovalocytes 1+ Acanthocytes OCC Phosphorus Level 3.0 MG/DL Test 11/14/16 06:00 11/17/16 08:11 01/18/17 18:19 01/20/17 09:35 Urine Transitional Epithelial Cells <1 /hpf Urine Calcium Oxalate Crystals RARE /hpf Urine Bacteria RARE /hpf Urine Hyaline Casts 11 /lpf Stool C. difficile Toxin (PCR) NEGATIVE Stl C. difficile Toxin Epiderm 027 PRESUMPTIVE NEGATIVE Ammonia 26 MCMOL/L Urine Mucus FEW /lpf Test 02/06/17 08:20 02/17/17 09:45 02/17/17 18:04 02/18/17 17:10 Levetiracetam (Keppra) Level <2.0 mcg/mL Urine Color LIGHT-YELLOW Urine Turbidity CLEAR Urine pH 6.5 Urine Specific [place] 1.009 Urine Protein NEG mg/dL Urine Glucose (UA) NEG mg/dL Urine Ketones NEG mg/dL Urine Occult Blood NEG Urine Nitrite NEG Urine Bilirubin NEG Urine Urobilinogen LESS THAN 2.0 MG/DL Urine Leukocyte Esterase NEG Urine RBC LESS THAN 1 /hpf Urine WBC 1 /hpf Microscopic Urinalysis Comment CULT NOT INDICATED Blood Urea Nitrogen 18 MG/DL Creatinine 1.17 MG/DL Random Glucose 81 MG/DL Total Protein 7.1 GM/DL Albumin 3.6 GM/DL Calcium Level 8.5 MG/DL Alkaline Phosphatase 58 U/L Aspartate Amino Transf (AST/SGOT) 11 U/L Alanine Aminotransferase (ALT/SGPT) 24 U/L Total Bilirubin 0.4 MG/DL Sodium Level 141 MEQ/L Potassium Level 4.1 MEQ/L Chloride Level 110 MEQ/L Carbon Dioxide Level 24.8 MEQ/L Lipase 85 U/L Troponin I LESS THAN 0.02 NG/ML Test 03/08/17 08:58 03/29/17 11:00 04/10/17 07:47 Blood Urea Nitrogen 16 MG/DL 18 MG/DL Creatinine 1.30 MG/DL 1.36 MG/DL Random Glucose 120 MG/DL 72 MG/DL Calcium Level 9.0 MG/DL 9.0 MG/DL Magnesium Level 2.2 MG/DL Sodium Level 143 MEQ/L 144 MEQ/L Potassium Level 4.0 MEQ/L 3.8 MEQ/L Chloride Level 109 MEQ/L 108 MEQ/L Carbon Dioxide Level 27.0 MEQ/L 26.1 MEQ/L Neutrophils (%) (Auto) 63.6 % Lymphocytes (%) (Auto) 23.0 % Monocytes (%) (Auto) 9.3 % Eosinophils (%) (Auto) 2.9 % Basophils (%) (Auto) 1.2 % Neutrophils # (Auto) 4.0 TH/MM3 Lymphocytes # (Auto) 1.4 TH/MM3 Monocytes # (Auto) 0.6 TH/MM3 Eosinophils # (Auto) 0.2 TH/MM3 Basophils # (Auto) 0.1 TH/MM3 CBC Comment DIFF FINAL Differential Comment White Blood Count 5.7 TH/MM3 Red Blood Count 4.66 MIL/MM3 Hemoglobin 13.7 GM/DL Hematocrit 41.1 % Mean Corpuscular Volume 88.1 FL Mean Corpuscular Hemoglobin 29.5 PG Mean Corpuscular Hemoglobin Concent 33.5 % Red Cell Distribution Width 14.3 % Platelet Count 196 TH/MM3 Mean Platelet Volume 9.3 FL Anion Gap 10 MEQ/L Estimat Glomerular Filtration Rate 55 ML/MIN Objective Remarks GENERAL: Well-nourished, well-developed male patient, in no apparent distress. Awake and alert. Sitting up at nurses station. Appears comfortable. SKIN: No rash. Warm and dry. HEENT: Normocephalic. Extraocular motions intact. No scleral icterus. No injection or drainage. Nose without bleeding. MMM. Airway patent. NECK: Trachea midline. Supple. CARDIOVASCULAR: RRR. No murmur appreciated. RESPIRATORY: Nonlabored. Clear to auscultation. Breath sounds equal bilaterally. No wheezes, rales, or rhonchi. GASTROINTESTINAL: Abdomen soft, nondistended and nontender. BS x 4. MUSCULOSKELETAL: Extremities without clubbing, cyanosis, or edema. NEUROLOGICAL: Awake and alert. Oriented to self only. Moves all 4 extremities spontaneously. Motor and sensory function grossly intact. Normal speech. Medications and IVs Current Medications Medications (Trade) Dose Ordered Sig/Nava Route Start Time Stop Time Status Last Admin (Tylenol) 650 mg Q6H PRN PO 10/05/16 02:45 04/04/17 20:54 (Zofran Inj) 4 mg Q6H PRN IV 10/05/16 02:45 11/27/16 23:26 Miscellaneous Information 1 Q361D XX 10/05/16 02:45 10/05/16 02:45 (Pravachol) 40 mg DAILY PO 10/05/16 09:00 04/13/17 08:00 (Lovenox Inj) 40 mg Q24H SQ 10/23/16 21:00 Future hold 04/12/17 21:38 (Trandate) 100 mg Q8H PO 11/03/16 20:00 04/13/17 12:18 (Norvasc) 5 mg DAILY PO 11/04/16 09:00 04/13/17 08:00 (Imodium) 2 mg UNSCH PRN PO 11/09/16 09:45 11/29/16 12:57 (Lomotil Tab) 1 tab Q6H PRN PO 11/09/16 09:45 (Lactulose Liq) 30 ml QID PRN PO 12/09/16 13:45 (Protonix) 40 mg DAILY PO 12/16/16 09:00 04/13/17 08:01 (Benadryl) 50 mg Q6H PRN PO 12/20/16 17:45 04/12/17 21:00 (Colace) 100 mg Q12H PRN PO 02/12/17 00:15 (Duoneb Neb) 1 ampule Q4HR NEB PRN INH 02/12/17 12:00 (KCl) 40 meq DAILY PO 02/13/17 09:00 04/13/17 08:00 (Tonie-Colace) 1 tab BID PO 02/18/17 09:30 04/13/17 08:00 (SEROquel) 200 mg BID@09,12 PO 02/24/17 09:00 04/13/17 12:18 (Lactulose Liq) 30 ml DAILY PO 03/16/17 10:45 04/13/17 08:00 A/P Assessment and Plan Mr. Nunez is a 51 year old male who was brought to the hospital as a trauma alert due to head injury after he fell in the bathroom and hit his head. Patient was unresponsive for approximately 15 minutes by the time ambulance services arrived. His mentation waxed and waned with GCS ranging from [address] head indicated subarachnoid hemorrhage, acute. Intracranial hemorrhage, status post basilar artery coiling 10/05, Status post [employer]MINISTR[employer] ASSISTANT FRONT DESK shunt on 11/24/2016 Chronic encephalopathy Hydrocephalus Cortical blindness - Neurology signed off. Neuropsychology following patient ultimately for discharge placement and assistance with recommendations. Per neuropsychology note, ongoing areas of concern include behavioral impulsivity, lack of insight and judgement. - Speech therapy recommends regular diet with thin liquids. Patient is eating well. PEG dc'd 01/08/17. - Continue Seroquel 100mg BID per psychiatry HTN - controlled - continue on Norvasc 5mg daily and Labetalol 100mg q8h Acute hypoxic hypercarbic respiratory failure, resolved - Tracheostomy 10/23/16, removed, old trach site healed. - Monitor respiratory status - stable on RA C. difficile colitis, resolved - Completed Flagyl on 10/23 - No diarrhea reported - off Lactinex DVT prophylaxis: SCDs, YOUSIF hose, Lovenox. Ambulation. GI prophylaxis: Protonix. No changes to anterior assessment. Discharge Planning Not yet found placement. Luciano Gomez MD Apr 13, 2017 13:17
[2017-04-13 16:00] VITALS: BP 107/69; PULSE 90; RESP 20; TEMP 98; O2SAT 95
[2017-04-13 20:00] VITALS: BP 134/80; PULSE 99; RESP 18; TEMP 98; O2SAT 94
[2017-04-13] MEDS: ENOXAPARIN SODIUM 40 MG/0.4 ML SYRINGE SQ SCH (21:20)
[2017-04-13] MEDS: diphenhydrAMINE HCL 50 MG CAP PO PRN (21:20)
[2017-04-14] VITALS: BP 138/74; PULSE 78; RESP 18; TEMP 97.6; O2SAT 93
[2017-04-14 04:00] VITALS: BP 137/78; PULSE 87; RESP 18; TEMP 98.2; O2SAT 94
[2017-04-14] MEDS: LABETALOL HCL 100 MG TAB PO SCH ×3 (04:25→22:46)
[2017-04-14 08:03] VITALS: BP 126/79; PULSE 74; RESP 20; TEMP 98.3; O2SAT 96
[2017-04-14] MEDS: LACTULOSE SYRUP 20 GM/30 ML CUP PO SCH (08:53)
[2017-04-14] MEDS: amLODIPine BESYLATE 5 MG TAB PO SCH (08:54)
[2017-04-14] MEDS: DOCUSATE SODIUM 50 MG/SENNA 8.6 MG TAB PO SCH ×2 (08:54→22:46)
[2017-04-14] MEDS: QUEtiapine FUMARATE 100 MG TAB PO SCH ×2 (08:54→13:07)
[2017-04-14] MEDS: POTASSIUM CHLORIDE 20 MEQ CONTROLLED RELEASE TAB PO SCH (08:54)
[2017-04-14] MEDS: PRAVASTATIN SOD 40 MG TAB PO SCH (08:54)
[2017-04-14] MEDS: PANTOPRAZOLE SOD 40 MG DELAYED RELEASE TAB PO SCH (08:54)
--- NOTE | 2017-04-14 09:59 | HHI.PR ---
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 Stable in his bedroom, discussed with nurse Miss Aleida diaz. Objective Vital Signs Date Time Temp Pulse Resp B/P (MAP) Pulse Ox O2 Delivery O2 Flow Rate FiO2 04/14/17 08:03 98.3 74 20 126/79 (95) 96 04/14/17 04:00 98.2 87 18 137/78 (97) 94 04/14/17 00:00 97.6 78 18 138/74 (95) 93 04/13/17 20:00 98.0 99 18 134/80 (98) 94 04/13/17 16:00 98.0 90 20 107/69 (82) 95 04/13/17 11:35 97.3 88 20 125/79 (94) 94 I/O 04/13/17 04/13/17 04/13/17 04/14/17 04/14/17 04/14/17 07:00 15:00 23:00 07:00 15:00 23:00 Intake Total 920 ml Balance 920 ml Intake Oral 920 ml # Voids 2 6 5 # Bowel Movements 2 Result Diagram: 04/10/17 0747 04/10/17 0747 Imaging Last Impressions Chest X-Ray 02/18/17 0000 Signed Impressions: Service Date/Time: Saturday, February 18, 2017 10:51 - CONCLUSION: Diminished lung volumes. No infiltrate. Tyrese Raymond MD Abdomen X-Ray 02/18/17 0000 Signed Impressions: Service Date/Time: Saturday, February 18, 2017 10:56 - CONCLUSION: Unremarkable abdomen. Tyrese Raymond MD Gall Bladder Ultrasound 02/17/17 0000 Signed Impressions: Service Date/Time: Friday, February 17, 2017 17:45 - CONCLUSION: Mildly enlarged liver and small amount of gallbladder sludge. Tim Hammonds MD Head CT 12/09/16 0000 Signed Impressions: Service Date/Time: Friday, December 09, 2016 17:36 - CONCLUSION: 1. Right ventriculostomy tube remains in place with decrease in ventricular size since November 24. There is some encephalomalacia around the shunt and a probable small infarct in the left basal ganglia. No new hemorrhage or shift. Tip Harris MD Transcranial Doppler Study Complete 10/26/16 0700 Signed Impressions: Service Date/Time: Wednesday, October 26, 2016 08:20 - CONCLUSION: Minimal interval improvement with no evidence for vasospasm. Christian Song MD FACR Neck CTA 10/19/16 0000 Signed Impressions: Service Date/Time: Wednesday, October 19, 2016 14:19 - CONCLUSION: Negative for dissection or significant stenosis. Christian Song MD FACR Head CTA 10/19/16 0000 Signed Impressions: Service Date/Time: Wednesday, October 19, 2016 14:19 - CONCLUSION: 1. Interval development of significant vasospasm in the left MCA and SRI territories. 2. Mild vasospasm in the basilar artery.. Gume Mckeon MD Cerebral Arteriogram 10/19/16 0000 Signed Impressions: Service Date/Time: Wednesday, October 19, 2016 16:06 - CONCLUSION: 1. Vasospasm in the left MCA and SRI territories 2. Spasmolytic infusion, left internal carotid artery as above.. 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 Gume Mckeon MD Pelvis X-Ray 10/05/16109 Signed Impressions: Service Date/Time: Wednesday, October 05, 2016 01:22 - CONCLUSION: Unremarkable examination of the pelvis. Ruben Acuña Jr., MD Chest CT 10/05/16109 Signed Impressions: Service Date/Time: Wednesday, October 05, 2016 01:46 - CONCLUSION: 1. No acute intrathoracic abnormality. 2. Bibasilar atelectasis. 3. Cardiomegaly. 4. Prior granulomatous disease. Ruben Acuña Jr., MD Cervical Spine CT 10/05/16109 Signed Impressions: Service Date/Time: Wednesday, October 05, 2016 01:40 - CONCLUSION: 1. No fracture or dislocation. 2. Multilevel degenerative changes. Ruben Acuña Jr., MD Abdomen/Pelvis CT 10/05/16109 Signed Impressions: Service Date/Time: Wednesday, October 05, 2016 01:46 - CONCLUSION: 1. No acute trauma. 2. Rounded area of decreased density involving the pancreatic head. I cannot completely exclude pancreatic head mass. At some point MRI of the pancreas is suggested to further evaluate. 3. Focal area of poor enhancement involving the left kidney. This may relate to an area of parenchymal scarring. I cannot completely exclude a mass. This can be further assessed with MRI as well. Ruben Acuña Jr., MD Procedures 10/05/16 right frontal twist drill for ventriculostomy placement 10/20/16 arterial line placement 10/23/16 bedside percutaneous tracheostomy under direct bronchoscopic visualization 10/24/16 PEG tube placement at bedside Other Results Laboratory Tests Test 10/05/16 00:15 10/05/16 02:45 10/05/16 17:15 10/06/16 03:45 Bedside Hemoglobin 15.6 G/DL Bedside Hematocrit 46.0 % Eosinophils % 5 % Basophils % 2 % Atypical Lymphocytes % Activated Partial Thromboplast Time 21.0 SEC Fibrinogen 249 mg/dL Bedside Sodium 146 MMOL/L Bedside Potassium 4.4 MMOL/L Bedside Chloride 105 MMOL/L Bedside Blood Urea Nitrogen 30 MG/DL Bedside Creatinine 1.3 MG/DL Bedside Glucose 145 MG/DL Ethyl Alcohol Level LESS THAN 3 MG/DL Nasal Screen MRSA (PCR) NEGATIVE Urine Opiates Screen NEG Urine Barbiturates Screen NEG Urine Amphetamines Screen NEG Urine Benzodiazepines Screen NEG Urine Cocaine Screen NEG Urine Cannabinoids Screen NEG Blood Gas Puncture Site ART LINE Blood Gas Patient Temperature 98.6 Blood Gas HCO3 23 mmol/L Blood Gas Base Excess -1.0 mmol/L Blood Gas Oxygen Saturation 98 % Arterial Blood pH 7.40 Arterial Blood Partial Pressure CO2 38 mmHg Arterial Blood Partial Pressure O2 235 mmHg Arterial Blood Oxygen Content 17.9 Vol % Arterial Blood Carboxyhemoglobin 1.1 % Arterial Blood Methemoglobin 1.0 % Blood Gas Hemoglobin 12.7 G/DL Oxygen Delivery Device VENTILATOR Blood Gas Ventilator Setting [id number]/RR14/VT700/[id number] Blood Gas Inspired Oxygen 80 % Prothrombin Time 10.9 SEC Prothromb Time International Ratio 1.0 RATIO Lactic Acid Level 1.1 mmol/L Test 10/12/16 01:45 10/12/16 04:45 10/14/16 05:15 10/20/16 12:55 Urine WBC Clumps MANY Differential Total Cells Counted 100 Neutrophils % (Manual) 77 % Band Neutrophils % 16 % Lymphocytes % 5 % Monocytes % 2 % Neutrophils # (Manual) 22.6 TH/MM3 Platelet Estimate NORMAL Platelet Morphology Comment NORMAL Red Cell Morphology Comment NORMAL Random Vancomycin Level 7.4 COMMENT Urine Squamous Epithelial Cells <1 /hpf Test 10/21/16 09:20 10/25/16 11:10 11/06/16 20:00 11/08/16 04:45 CSF Volume (Tube 1) 9.0 ML CSF Supernatant Color (tube 1) CLEAR CSF Gross Blood (Tube 1) TRACE CSF WBC (Tube 1) 4 /MM3 CSF RBC (Tube 1) 112 /MM3 CSF Neutrophils 10 % CSF Lymphocytes 60 % CSF Monocytes 30 % CSF Glucose 112 MG/DL CSF Total Protein 28.8 MG/DL Urine Osmolality 290 MOSM/KG Urine Random Sodium 119 MEQ/L Serum Osmolality 303 MOSM/KG Blood Urea Nitrogen 16 MG/DL 10 MG/DL Creatinine 0.71 MG/DL 0.69 MG/DL Random Glucose 127 MG/DL 100 MG/DL Total Protein 6.6 GM/DL Albumin 2.3 GM/DL Calcium Level 7.8 MG/DL 8.2 MG/DL Magnesium Level 2.3 MG/DL 2.0 MG/DL Uric Acid 2.5 MG/DL Alkaline Phosphatase 67 U/L Aspartate Amino Transf (AST/SGOT) 28 U/L Alanine Aminotransferase (ALT/SGPT) 67 U/L Total Bilirubin 0.5 MG/DL Sodium Level 147 MEQ/L 148 MEQ/L Potassium Level 3.4 MEQ/L 3.7 MEQ/L Chloride Level 112 MEQ/L 114 MEQ/L Carbon Dioxide Level 26.0 MEQ/L 27.1 MEQ/L Protein Corrected Calcium 7.8 MG/DL Ovalocytes 1+ Acanthocytes OCC Phosphorus Level 3.0 MG/DL Test 11/14/16 06:00 11/17/16 08:11 01/18/17 18:19 01/20/17 09:35 Urine Transitional Epithelial Cells <1 /hpf Urine Calcium Oxalate Crystals RARE /hpf Urine Bacteria RARE /hpf Urine Hyaline Casts 11 /lpf Stool C. difficile Toxin (PCR) NEGATIVE Stl C. difficile Toxin Epiderm 027 PRESUMPTIVE NEGATIVE Ammonia 26 MCMOL/L Urine Mucus FEW /lpf Test 02/06/17 08:20 02/17/17 09:45 02/17/17 18:04 02/18/17 17:10 Levetiracetam (Keppra) Level <2.0 mcg/mL Urine Color LIGHT-YELLOW Urine Turbidity CLEAR Urine pH 6.5 Urine Specific [place] 1.009 Urine Protein NEG mg/dL Urine Glucose (UA) NEG mg/dL Urine Ketones NEG mg/dL Urine Occult Blood NEG Urine Nitrite NEG Urine Bilirubin NEG Urine Urobilinogen LESS THAN 2.0 MG/DL Urine Leukocyte Esterase NEG Urine RBC LESS THAN 1 /hpf Urine WBC 1 /hpf Microscopic Urinalysis Comment CULT NOT INDICATED Blood Urea Nitrogen 18 MG/DL Creatinine 1.17 MG/DL Random Glucose 81 MG/DL Total Protein 7.1 GM/DL Albumin 3.6 GM/DL Calcium Level 8.5 MG/DL Alkaline Phosphatase 58 U/L Aspartate Amino Transf (AST/SGOT) 11 U/L Alanine Aminotransferase (ALT/SGPT) 24 U/L Total Bilirubin 0.4 MG/DL Sodium Level 141 MEQ/L Potassium Level 4.1 MEQ/L Chloride Level 110 MEQ/L Carbon Dioxide Level 24.8 MEQ/L Lipase 85 U/L Troponin I LESS THAN 0.02 NG/ML Test 03/08/17 08:58 03/29/17 11:00 04/10/17 07:47 Blood Urea Nitrogen 16 MG/DL 18 MG/DL Creatinine 1.30 MG/DL 1.36 MG/DL Random Glucose 120 MG/DL 72 MG/DL Calcium Level 9.0 MG/DL 9.0 MG/DL Magnesium Level 2.2 MG/DL Sodium Level 143 MEQ/L 144 MEQ/L Potassium Level 4.0 MEQ/L 3.8 MEQ/L Chloride Level 109 MEQ/L 108 MEQ/L Carbon Dioxide Level 27.0 MEQ/L 26.1 MEQ/L Neutrophils (%) (Auto) 63.6 % Lymphocytes (%) (Auto) 23.0 % Monocytes (%) (Auto) 9.3 % Eosinophils (%) (Auto) 2.9 % Basophils (%) (Auto) 1.2 % Neutrophils # (Auto) 4.0 TH/MM3 Lymphocytes # (Auto) 1.4 TH/MM3 Monocytes # (Auto) 0.6 TH/MM3 Eosinophils # (Auto) 0.2 TH/MM3 Basophils # (Auto) 0.1 TH/MM3 CBC Comment DIFF FINAL Differential Comment White Blood Count 5.7 TH/MM3 Red Blood Count 4.66 MIL/MM3 Hemoglobin 13.7 GM/DL Hematocrit 41.1 % Mean Corpuscular Volume 88.1 FL Mean Corpuscular Hemoglobin 29.5 PG Mean Corpuscular Hemoglobin Concent 33.5 % Red Cell Distribution Width 14.3 % Platelet Count 196 TH/MM3 Mean Platelet Volume 9.3 FL Anion Gap 10 MEQ/L Estimat Glomerular Filtration Rate 55 ML/MIN Objective Remarks GENERAL: Well-nourished, well-developed male patient, in no apparent distress. Awake and alert. Sitting up at nurses station. Appears comfortable. SKIN: No rash. Warm and dry. HEENT: Normocephalic. Extraocular motions intact. No scleral icterus. No injection or drainage. Nose without bleeding. MMM. Airway patent. NECK: Trachea midline. Supple. CARDIOVASCULAR: RRR. No murmur appreciated. RESPIRATORY: Nonlabored. Clear to auscultation. Breath sounds equal bilaterally. No wheezes, rales, or rhonchi. GASTROINTESTINAL: Abdomen soft, nondistended and nontender. BS x 4. MUSCULOSKELETAL: Extremities without clubbing, cyanosis, or edema. NEUROLOGICAL: Awake and alert. Oriented to self only. Moves all 4 extremities spontaneously. Motor and sensory function grossly intact. Normal speech. Medications and IVs Current Medications Medications (Trade) Dose Ordered Sig/Nava Route Start Time Stop Time Status Last Admin (Tylenol) 650 mg Q6H PRN PO 10/05/16 02:45 04/04/17 20:54 (Zofran Inj) 4 mg Q6H PRN IV 10/05/16 02:45 11/27/16 23:26 Miscellaneous Information 1 Q361D XX 10/05/16 02:45 10/05/16 02:45 (Pravachol) 40 mg DAILY PO 10/05/16 09:00 04/14/17 08:54 (Lovenox Inj) 40 mg Q24H SQ 10/23/16 21:00 Future hold 04/13/17 21:20 (Trandate) 100 mg Q8H PO 11/03/16 20:00 04/14/17 04:25 (Norvasc) 5 mg DAILY PO 11/04/16 09:00 04/14/17 08:54 (Imodium) 2 mg UNSCH PRN PO 11/09/16 09:45 11/29/16 12:57 (Lomotil Tab) 1 tab Q6H PRN PO 11/09/16 09:45 (Lactulose Liq) 30 ml QID PRN PO 12/09/16 13:45 (Protonix) 40 mg DAILY PO 12/16/16 09:00 04/14/17 08:54 (Benadryl) 50 mg Q6H PRN PO 12/20/16 17:45 04/13/17 21:20 (Colace) 100 mg Q12H PRN PO 02/12/17 00:15 (Duoneb Neb) 1 ampule Q4HR NEB PRN INH 02/12/17 12:00 (KCl) 40 meq DAILY PO 02/13/17 09:00 04/14/17 08:54 (Tonie-Colace) 1 tab BID PO 02/18/17 09:30 04/14/17 08:54 (SEROquel) 200 mg BID@09,12 PO 02/24/17 09:00 04/14/17 08:54 (Lactulose Liq) 30 ml DAILY PO 03/16/17 10:45 04/14/17 08:53 A/P Assessment and Plan Mr. Nunez is a 51 year old male who was brought to the hospital as a trauma alert due to head injury after he fell in the bathroom and hit his head. Patient was unresponsive for approximately 15 minutes by the time ambulance services arrived. His mentation waxed and waned with GCS ranging from [address] head indicated subarachnoid hemorrhage, acute. Intracranial hemorrhage, status post basilar artery coiling 10/05, Status post [employer] shunt on 11/24/2016 Chronic encephalopathy Hydrocephalus Cortical blindness - Neurology signed off. Neuropsychology following patient ultimately for discharge placement and assistance with recommendations. Per neuropsychology note, ongoing areas of concern include behavioral impulsivity, lack of insight and judgement. - Speech therapy recommends regular diet with thin liquids. Patient is eating well. PEG dc'd 01/08/17. - Continue Seroquel 100mg BID per psychiatry HTN - controlled - continue on Norvasc 5mg daily and Labetalol 100mg q8h Acute hypoxic hypercarbic respiratory failure, resolved - Tracheostomy 10/23/16, removed, old trach site healed. - Monitor respiratory status - stable on RA C. difficile colitis, resolved - Completed Flagyl on 10/23 - No diarrhea reported - off Lactinex DVT prophylaxis: SCDs, YOUSIF hose, Lovenox. Ambulation. GI prophylaxis: Protonix. No changes to anterior assessment. Discharge Planning Not yet found placement. Luciano Gomez MD Apr 14, 2017 09:58
[2017-04-14 11:56] VITALS: BP 105/57; PULSE 91; RESP 20; TEMP 98.2; O2SAT 93
[2017-04-14 15:49] VITALS: BP 113/70; PULSE 80; RESP 20; TEMP 97.9; O2SAT 94
[2017-04-14 20:00] VITALS: BP 110/74; PULSE 77; RESP 18; TEMP 97.8; O2SAT 96
[2017-04-14] MEDS: ENOXAPARIN SODIUM 40 MG/0.4 ML SYRINGE SQ SCH (22:46)
[2017-04-15 04:00] VITALS: BP 119/70; PULSE 90; RESP 20; TEMP 97.7; O2SAT 95
[2017-04-15] MEDS: LABETALOL HCL 100 MG TAB PO SCH ×3 (04:00→20:00)
[2017-04-15 08:20] VITALS: BP 137/84; PULSE 76; RESP 18; TEMP 98; O2SAT 93
[2017-04-15] MEDS: DOCUSATE SODIUM 50 MG/SENNA 8.6 MG TAB PO SCH ×2 (09:00→21:00)
--- NOTE | 2017-04-15 09:19 | HHI.PR ---
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 Seen in his bedroom, recommended to get more Water he states he likes to drink another kind of beverages but no water, his Renal function was decreased on last BMP will follow another one. No nausea, vomit or diarrhea. Objective Vital Signs Date Time Temp Pulse Resp B/P (MAP) Pulse Ox O2 Delivery O2 Flow Rate FiO2 04/15/17 08:20 98.0 76 18 137/84 (101) 93 04/15/17 04:00 97.7 90 20 119/70 (86) 95 04/14/17 20:00 97.8 77 18 110/74 (86) 96 04/14/17 15:49 97.9 80 20 113/70 (84) 94 04/14/17 11:56 98.2 91 20 105/57 (73) 93 I/O 04/14/17 04/14/17 04/14/17 04/15/17 04/15/17 04/15/17 07:00 15:00 23:00 07:00 15:00 23:00 Intake Total 960 ml Balance 960 ml Intake Oral 960 ml # Voids 5 3 5 # Bowel Movements 0 1 Imaging Last Impressions Chest X-Ray 02/18/17 0000 Signed Impressions: Service Date/Time: Saturday, February 18, 2017 10:51 - CONCLUSION: Diminished lung volumes. No infiltrate. Tyrese Raymond MD Abdomen X-Ray 02/18/17 0000 Signed Impressions: Service Date/Time: Saturday, February 18, 2017 10:56 - CONCLUSION: Unremarkable abdomen. Tyrese Raymond MD Gall Bladder Ultrasound 02/17/17 0000 Signed Impressions: Service Date/Time: Friday, February 17, 2017 17:45 - CONCLUSION: Mildly enlarged liver and small amount of gallbladder sludge. Tim Hammonds MD Head CT 12/09/16 0000 Signed Impressions: Service Date/Time: Friday, December 09, 2016 17:36 - CONCLUSION: 1. Right ventriculostomy tube remains in place with decrease in ventricular size since November 24. There is some encephalomalacia around the shunt and a probable small infarct in the left basal ganglia. No new hemorrhage or shift. Tip Harris MD Transcranial Doppler Study Complete 10/26/16 0700 Signed Impressions: Service Date/Time: Wednesday, October 26, 2016 08:20 - CONCLUSION: Minimal interval improvement with no evidence for vasospasm. Christian Song MD FACR Neck CTA 10/19/16 0000 Signed Impressions: Service Date/Time: Wednesday, October 19, 2016 14:19 - CONCLUSION: Negative for dissection or significant stenosis. Christian Song MD FACR Head CTA 10/19/16 Signed Impressions: Service Date/Time: Wednesday, October 19, 2016 14:19 - CONCLUSION: 1. Interval development of significant vasospasm in the left MCA and SRI territories. 2. Mild vasospasm in the basilar artery.. Gume Mckeon MD Cerebral Arteriogram 10/19/16 Signed Impressions: Service Date/Time: Wednesday, October 19, 2016 16:06 - CONCLUSION: 1. Vasospasm in the left MCA and SRI territories 2. Spasmolytic infusion, left internal carotid artery as above.. 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 Gume Mckeon MD Pelvis X-Ray 10/05/16109 Signed Impressions: Service Date/Time: Wednesday, October 05, 2016 01:22 - CONCLUSION: Unremarkable examination of the pelvis. Ruben Acuña Jr., MD Chest CT 10/05/16109 Signed Impressions: Service Date/Time: Wednesday, October 05, 2016 01:46 - CONCLUSION: 1. No acute intrathoracic abnormality. 2. Bibasilar atelectasis. 3. Cardiomegaly. 4. Prior granulomatous disease. Ruben Acuña Jr., MD Cervical Spine CT 10/05/16109 Signed Impressions: Service Date/Time: Wednesday, October 05, 2016 01:40 - CONCLUSION: 1. No fracture or dislocation. 2. Multilevel degenerative changes. Ruben Acuña Jr., MD Abdomen/Pelvis CT 10/05/16109 Signed Impressions: Service Date/Time: Wednesday, October 05, 2016 01:46 - CONCLUSION: 1. No acute trauma. 2. Rounded area of decreased density involving the pancreatic head. I cannot completely exclude pancreatic head mass. At some point MRI of the pancreas is suggested to further evaluate. 3. Focal area of poor enhancement involving the left kidney. This may relate to an area of parenchymal scarring. I cannot completely exclude a mass. This can be further assessed with MRI as well. Ruben Acuña Jr., MD Procedures 10/05/16 right frontal twist drill for ventriculostomy placement 10/20/16 arterial line placement 10/23/16 bedside percutaneous tracheostomy under direct bronchoscopic visualization 10/24/16 PEG tube placement at bedside Other Results Laboratory Tests Test 10/05/16 00:15 10/05/16 02:45 10/05/16 17:15 10/06/16 03:45 Bedside Hemoglobin 15.6 G/DL Bedside Hematocrit 46.0 % Eosinophils % 5 % Basophils % 2 % Atypical Lymphocytes % Activated Partial Thromboplast Time 21.0 SEC Fibrinogen 249 mg/dL Bedside Sodium 146 MMOL/L Bedside Potassium 4.4 MMOL/L Bedside Chloride 105 MMOL/L Bedside Blood Urea Nitrogen 30 MG/DL Bedside Creatinine 1.3 MG/DL Bedside Glucose 145 MG/DL Ethyl Alcohol Level LESS THAN 3 MG/DL Nasal Screen MRSA (PCR) NEGATIVE Urine Opiates Screen NEG Urine Barbiturates Screen NEG Urine Amphetamines Screen NEG Urine Benzodiazepines Screen NEG Urine Cocaine Screen NEG Urine Cannabinoids Screen NEG Blood Gas Puncture Site ART LINE Blood Gas Patient Temperature 98.6 Blood Gas HCO3 23 mmol/L Blood Gas Base Excess -1.0 mmol/L Blood Gas Oxygen Saturation 98 % Arterial Blood pH 7.40 Arterial Blood Partial Pressure CO2 38 mmHg Arterial Blood Partial Pressure O2 235 mmHg Arterial Blood Oxygen Content 17.9 Vol % Arterial Blood Carboxyhemoglobin 1.1 % Arterial Blood Methemoglobin 1.0 % Blood Gas Hemoglobin 12.7 G/DL Oxygen Delivery Device VENTILATOR Blood Gas Ventilator Setting AC/RR14/VT700/[id number] Blood Gas Inspired Oxygen 80 % Prothrombin Time 10.9 SEC Prothromb Time International Ratio 1.0 RATIO Lactic Acid Level 1.1 mmol/L Test 10/12/16 01:45 10/12/16 04:45 10/14/16 05:15 10/20/16 12:55 Urine WBC Clumps MANY Differential Total Cells Counted 100 Neutrophils % (Manual) 77 % Band Neutrophils % 16 % Lymphocytes % 5 % Monocytes % 2 % Neutrophils # (Manual) 22.6 TH/MM3 Platelet Estimate NORMAL Platelet Morphology Comment NORMAL Red Cell Morphology Comment NORMAL Random Vancomycin Level 7.4 COMMENT Urine Squamous Epithelial Cells <1 /hpf Test 10/21/16 09:20 10/25/16 11:10 11/06/16 20:00 11/08/16 04:45 CSF Volume (Tube 1) 9.0 ML CSF Supernatant Color (tube 1) CLEAR CSF Gross Blood (Tube 1) TRACE CSF WBC (Tube 1) 4 /MM3 CSF RBC (Tube 1) 112 /MM3 CSF Neutrophils 10 % CSF Lymphocytes 60 % CSF Monocytes 30 % CSF Glucose 112 MG/DL CSF Total Protein 28.8 MG/DL Urine Osmolality 290 MOSM/KG Urine Random Sodium 119 MEQ/L Serum Osmolality 303 MOSM/KG Blood Urea Nitrogen 16 MG/DL 10 MG/DL Creatinine 0.71 MG/DL 0.69 MG/DL Random Glucose 127 MG/DL 100 MG/DL Total Protein 6.6 GM/DL Albumin 2.3 GM/DL Calcium Level 7.8 MG/DL 8.2 MG/DL Magnesium Level 2.3 MG/DL 2.0 MG/DL Uric Acid 2.5 MG/DL Alkaline Phosphatase 67 U/L Aspartate Amino Transf (AST/SGOT) 28 U/L Alanine Aminotransferase (ALT/SGPT) 67 U/L Total Bilirubin 0.5 MG/DL Sodium Level 147 MEQ/L 148 MEQ/L Potassium Level 3.4 MEQ/L 3.7 MEQ/L Chloride Level 112 MEQ/L 114 MEQ/L Carbon Dioxide Level 26.0 MEQ/L 27.1 MEQ/L Protein Corrected Calcium 7.8 MG/DL Ovalocytes 1+ Acanthocytes OCC Phosphorus Level 3.0 MG/DL Test 11/14/16 06:00 11/17/16 08:11 01/18/17 18:19 01/20/17 09:35 Urine Transitional Epithelial Cells <1 /hpf Urine Calcium Oxalate Crystals RARE /hpf Urine Bacteria RARE /hpf Urine Hyaline Casts 11 /lpf Stool C. difficile Toxin (PCR) NEGATIVE Stl C. difficile Toxin Epiderm 027 PRESUMPTIVE NEGATIVE Ammonia 26 MCMOL/L Urine Mucus FEW /lpf Test 02/06/17 08:20 02/17/17 09:45 02/17/17 18:04 02/18/17 17:10 Levetiracetam (Keppra) Level <2.0 mcg/mL Urine Color LIGHT-YELLOW Urine Turbidity CLEAR Urine pH 6.5 Urine Specific [place] 1.009 Urine Protein NEG mg/dL Urine Glucose (UA) NEG mg/dL Urine Ketones NEG mg/dL Urine Occult Blood NEG Urine Nitrite NEG Urine Bilirubin NEG Urine Urobilinogen LESS THAN 2.0 MG/DL Urine Leukocyte Esterase NEG Urine RBC LESS THAN 1 /hpf Urine WBC 1 /hpf Microscopic Urinalysis Comment CULT NOT INDICATED Blood Urea Nitrogen 18 MG/DL Creatinine 1.17 MG/DL Random Glucose 81 MG/DL Total Protein 7.1 GM/DL Albumin 3.6 GM/DL Calcium Level 8.5 MG/DL Alkaline Phosphatase 58 U/L Aspartate Amino Transf (AST/SGOT) 11 U/L Alanine Aminotransferase (ALT/SGPT) 24 U/L Total Bilirubin 0.4 MG/DL Sodium Level 141 MEQ/L Potassium Level 4.1 MEQ/L Chloride Level 110 MEQ/L Carbon Dioxide Level 24.8 MEQ/L Lipase 85 U/L Troponin I LESS THAN 0.02 NG/ML Test 03/08/17 08:58 03/29/17 11:00 04/10/17 07:47 Blood Urea Nitrogen 16 MG/DL 18 MG/DL Creatinine 1.30 MG/DL 1.36 MG/DL Random Glucose 120 MG/DL 72 MG/DL Calcium Level 9.0 MG/DL 9.0 MG/DL Magnesium Level 2.2 MG/DL Sodium Level 143 MEQ/L 144 MEQ/L Potassium Level 4.0 MEQ/L 3.8 MEQ/L Chloride Level 109 MEQ/L 108 MEQ/L Carbon Dioxide Level 27.0 MEQ/L 26.1 MEQ/L Neutrophils (%) (Auto) 63.6 % Lymphocytes (%) (Auto) 23.0 % Monocytes (%) (Auto) 9.3 % Eosinophils (%) (Auto) 2.9 % Basophils (%) (Auto) 1.2 % Neutrophils # (Auto) 4.0 TH/MM3 Lymphocytes # (Auto) 1.4 TH/MM3 Monocytes # (Auto) 0.6 TH/MM3 Eosinophils # (Auto) 0.2 TH/MM3 Basophils # (Auto) 0.1 TH/MM3 CBC Comment DIFF FINAL Differential Comment White Blood Count 5.7 TH/MM3 Red Blood Count 4.66 MIL/MM3 Hemoglobin 13.7 GM/DL Hematocrit 41.1 % Mean Corpuscular Volume 88.1 FL Mean Corpuscular Hemoglobin 29.5 PG Mean Corpuscular Hemoglobin Concent 33.5 % Red Cell Distribution Width 14.3 % Platelet Count 196 TH/MM3 Mean Platelet Volume 9.3 FL Anion Gap 10 MEQ/L Estimat Glomerular Filtration Rate 55 ML/MIN Objective Remarks GENERAL: Well-nourished, well-developed male patient, in no apparent distress. Awake and alert. Sitting up at nurses station. Appears comfortable. SKIN: No rash. Warm and dry. HEENT: Normocephalic. Extraocular motions intact. No scleral icterus. No injection or drainage. Nose without bleeding. MMM. Airway patent. NECK: Trachea midline. Supple. CARDIOVASCULAR: RRR. No murmur appreciated. RESPIRATORY: Nonlabored. Clear to auscultation. Breath sounds equal bilaterally. No wheezes, rales, or rhonchi. GASTROINTESTINAL: Abdomen soft, nondistended and nontender. BS x 4. MUSCULOSKELETAL: Extremities without clubbing, cyanosis, or edema. NEUROLOGICAL: Awake and alert. Oriented to self only. Moves all 4 extremities spontaneously. Motor and sensory function grossly intact. Normal speech. Medications and IVs Current Medications Medications (Trade) Dose Ordered Sig/Nava Route Start Time Stop Time Status Last Admin (Tylenol) 650 mg Q6H PRN PO 10/05/16 02:45 04/04/17 20:54 (Zofran Inj) 4 mg Q6H PRN IV 10/05/16 02:45 11/27/16 23:26 Miscellaneous Information 1 Q361D XX 10/05/16 02:45 10/05/16 02:45 (Pravachol) 40 mg DAILY PO 10/05/16 09:00 04/14/17 08:54 (Lovenox Inj) 40 mg Q24H SQ 10/23/16 21:00 Future hold 04/14/17 22:46 (Trandate) 100 mg Q8H PO 11/03/16 20:00 04/14/17 22:46 (Norvasc) 5 mg DAILY PO 11/04/16 09:00 04/14/17 08:54 (Imodium) 2 mg UNSCH PRN PO 11/09/16 09:45 11/29/16 12:57 (Lomotil Tab) 1 tab Q6H PRN PO 11/09/16 09:45 (Lactulose Liq) 30 ml QID PRN PO 12/09/16 13:45 (Protonix) 40 mg DAILY PO 12/16/16 09:00 04/14/17 08:54 (Benadryl) 50 mg Q6H PRN PO 12/20/16 17:45 04/13/17 21:20 (Colace) 100 mg Q12H PRN PO 02/12/17 00:15 (Duoneb Neb) 1 ampule Q4HR NEB PRN INH 02/12/17 12:00 (KCl) 40 meq DAILY PO 02/13/17 09:00 04/14/17 08:54 (Tonie-Colace) 1 tab BID PO 02/18/17 09:30 04/14/17 22:46 (SEROquel) 200 mg BID@09,12 PO 02/24/17 09:00 04/14/17 13:07 (Lactulose Liq) 30 ml DAILY PO 03/16/17 10:45 04/14/17 08:53 A/P Assessment and Plan Mr. Nunez is a 51 year old male who was brought to the hospital as a trauma alert due to head injury after he fell in the bathroom and hit his head. Patient was unresponsive for approximately 15 minutes by the time ambulance services arrived. His mentation waxed and waned with GCS ranging from [address] head indicated subarachnoid hemorrhage, acute. Intracranial hemorrhage, status post basilar artery coiling 10/05, Status post TRAY CASTING MACHINE OPERATOR shunt on 11/24/2016 Chronic encephalopathy Hydrocephalus Cortical blindness - Neurology signed off. Neuropsychology following patient ultimately for discharge placement and assistance with recommendations. Per neuropsychology note, ongoing areas of concern include behavioral impulsivity, lack of insight and judgement. - Speech therapy recommends regular diet with thin liquids. Patient is eating well. PEG dc'd 01/08/17. - Continue Seroquel 100mg BID per psychiatry HTN - controlled - continue on Norvasc 5mg daily and Labetalol 100mg q8h Acute hypoxic hypercarbic respiratory failure, resolved - Tracheostomy 10/23/16, removed, old trach site healed. - Monitor respiratory status - stable on RA C. difficile colitis, resolved - Completed Flagyl on 10/23 - No diarrhea reported - off Lactinex DVT prophylaxis: SCDs, YOUSIF hose, Lovenox. Ambulation. GI prophylaxis: Protonix. Discussed with patient asked to increase water intake. follow new BMP Discharge Planning Not yet found placement. Luciano Gomez MD Apr 15, 2017 09:19
[2017-04-15] MEDS: PANTOPRAZOLE SOD 40 MG DELAYED RELEASE TAB PO SCH (09:34)
[2017-04-15] MEDS: QUEtiapine FUMARATE 100 MG TAB PO SCH ×2 (09:34→12:17)
[2017-04-15] MEDS: PRAVASTATIN SOD 40 MG TAB PO SCH (09:35)
[2017-04-15] MEDS: LACTULOSE SYRUP 20 GM/30 ML CUP PO SCH (09:35)
[2017-04-15] MEDS: amLODIPine BESYLATE 5 MG TAB PO SCH (09:35)
[2017-04-15] MEDS: POTASSIUM CHLORIDE 20 MEQ CONTROLLED RELEASE TAB PO SCH (09:38)
[2017-04-15 11:20] LABS: CREATININE 1.37 MG/DL (0.60-1.30)
[2017-04-15 12:18] VITALS: BP 129/83; PULSE 101; RESP 16; TEMP 98.1; O2SAT 93
[2017-04-15 15:55] VITALS: BP 113/76; PULSE 105; RESP 18; TEMP 97.5; O2SAT 94
[2017-04-15 20:00] VITALS: BP 96/68; PULSE 84; RESP 18; TEMP 97.8; O2SAT 92
[2017-04-15] MEDS: ENOXAPARIN SODIUM 40 MG/0.4 ML SYRINGE SQ SCH (22:13)
[2017-04-16] VITALS: BP 102/60; PULSE 80; RESP 20; TEMP 97.2; O2SAT 94
[2017-04-16 04:00] VITALS: BP 108/63; PULSE 75; RESP 19; TEMP 97.4; O2SAT 96
[2017-04-16] MEDS: LABETALOL HCL 100 MG TAB PO SCH ×3 (04:00→22:31)
[2017-04-16 08:07] VITALS: BP 122/82; PULSE 92; RESP 16; TEMP 97.9; O2SAT 95
[2017-04-16] MEDS: amLODIPine BESYLATE 5 MG TAB PO SCH (09:03)
[2017-04-16] MEDS: POTASSIUM CHLORIDE 20 MEQ CONTROLLED RELEASE TAB PO SCH (09:03)
[2017-04-16] MEDS: DOCUSATE SODIUM 50 MG/SENNA 8.6 MG TAB PO SCH ×2 (09:03→22:31)
[2017-04-16] MEDS: QUEtiapine FUMARATE 100 MG TAB PO SCH ×2 (09:03→12:26)
[2017-04-16] MEDS: PRAVASTATIN SOD 40 MG TAB PO SCH (09:03)
[2017-04-16] MEDS: PANTOPRAZOLE SOD 40 MG DELAYED RELEASE TAB PO SCH (09:03)
[2017-04-16] MEDS: LACTULOSE SYRUP 20 GM/30 ML CUP PO SCH (09:06)
[2017-04-16 12:06] VITALS: BP 139/76; PULSE 83; RESP 18; TEMP 97.7; O2SAT 95
--- NOTE | 2017-04-16 12:57 | HHI.PR ---
Subjective Remarks NO NEW COMPLAINTS STILL AWAITS SAFE PLACEMENT DW RN AND PT TOLERATING A DIET LISTENING TO TELEVISION Objective Vitals Vital Signs Date Time Temp Pulse Resp B/P (MAP) Pulse Ox O2 Delivery O2 Flow Rate FiO2 04/16/17 12:06 97.7 83 18 139/76 (97) 95 04/16/17 08:07 97.9 92 16 122/82 (95) 95 04/16/17 04:00 97.4 75 19 108/63 (78) 96 04/16/17 00:00 97.2 80 20 102/60 (74) 94 04/15/17 20:00 97.8 84 18 96/68 (77) 92 04/15/17 15:55 97.5 105 18 113/76 (88) 94 I/O 04/15/17 04/15/17 04/15/17 04/16/17 04/16/17 04/16/17 07:00 15:00 23:00 07:00 15:00 23:00 Intake Total 1260 ml Output Total 4 ml Balance 1256 ml Intake Oral 1260 ml Output Urine Total 4 ml # Voids 5 4 # Bowel Movements 1 2 Result Diagram: 04/15/17 1026 Other Results Laboratory Tests Test 04/15/17 10:26 Blood Urea Nitrogen 18 MG/DL Creatinine 1.37 MG/DL Random Glucose 136 MG/DL Calcium Level 9.0 MG/DL Sodium Level 142 MEQ/L Potassium Level 3.5 MEQ/L Chloride Level 108 MEQ/L Carbon Dioxide Level 27.0 MEQ/L Anion Gap 7 MEQ/L Estimat Glomerular Filtration Rate 55 ML/MIN Imaging Last Impressions Chest X-Ray 02/18/17 0000 Signed Impressions: Service Date/Time: Saturday, February 18, 2017 10:51 - CONCLUSION: Diminished lung volumes. No infiltrate. Tyrese Raymond MD Abdomen X-Ray 02/18/17 0000 Signed Impressions: Service Date/Time: Saturday, February 18, 2017 10:56 - CONCLUSION: Unremarkable abdomen. Tyrese Raymond MD Gall Bladder Ultrasound 02/17/17 0000 Signed Impressions: Service Date/Time: Friday, February 17, 2017 17:45 - CONCLUSION: Mildly enlarged liver and small amount of gallbladder sludge. Tim Hammonds MD Head CT 12/09/16 0000 Signed Impressions: Service Date/Time: Friday, December 09, 2016 17:36 - CONCLUSION: 1. Right ventriculostomy tube remains in place with decrease in ventricular size since November 24. There is some encephalomalacia around the shunt and a probable small infarct in the left basal ganglia. No new hemorrhage or shift. Tip Harris MD Transcranial Doppler Study Complete 10/26/16 0700 Signed Impressions: Service Date/Time: Wednesday, October 26, 2016 08:20 - CONCLUSION: Minimal interval improvement with no evidence for vasospasm. Christian Song MD FACR Neck CTA 10/19/16 0000 Signed Impressions: Service Date/Time: Wednesday, October 19, 2016 14:19 - CONCLUSION: Negative for dissection or significant stenosis. Christian Song MD FACR Head CTA 10/19/16 0000 Signed Impressions: Service Date/Time: Wednesday, October 19, 2016 14:19 - CONCLUSION: 1. Interval development of significant vasospasm in the left MCA and SRI territories. 2. Mild vasospasm in the basilar artery.. Gume Mckeon MD Cerebral Arteriogram 10/19/16 0000 Signed Impressions: Service Date/Time: Wednesday, October 19, 2016 16:06 - CONCLUSION: 1. Vasospasm in the left MCA and SRI territories 2. Spasmolytic infusion, left internal carotid artery as above.. 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 Gume Mckeon MD Pelvis X-Ray 10/05/16109 Signed Impressions: Service Date/Time: Wednesday, October 05, 2016 01:22 - CONCLUSION: Unremarkable examination of the pelvis. Ruben Acuña Jr., MD Chest CT 10/05/16109 Signed Impressions: Service Date/Time: Wednesday, October 05, 2016 01:46 - CONCLUSION: 1. No acute intrathoracic abnormality. 2. Bibasilar atelectasis. 3. Cardiomegaly. 4. Prior granulomatous disease. Ruben Acuña Jr., MD Cervical Spine CT 10/05/16109 Signed Impressions: Service Date/Time: Wednesday, October 05, 2016 01:40 - CONCLUSION: 1. No fracture or dislocation. 2. Multilevel degenerative changes. Ruben Acuña Jr., MD Abdomen/Pelvis CT 10/05/16 0110 Signed Impressions: Service Date/Time: Wednesday, October 05, 2016 01:46 - CONCLUSION: 1. No acute trauma. 2. Rounded area of decreased density involving the pancreatic head. I cannot completely exclude pancreatic head mass. At some point MRI of the pancreas is suggested to further evaluate. 3. Focal area of poor enhancement involving the left kidney. This may relate to an area of parenchymal scarring. I cannot completely exclude a mass. This can be further assessed with MRI as well. Ruben Acuña Jr., MD Objective Remarks GENERAL: AWAKE AND ALERT SKIN: Warm and dry. HEAD: Atraumatic. Normocephalic. EYES: Pupils equal and round. No scleral icterus. No injection or drainage. BLINDNESS ENT: No nasal bleeding or discharge. Mucous membranes pink and moist.TONGUE MIDLINE NECK: Trachea midline. No JVD. SUPPLE CARDIOVASCULAR: Regular rate and rhythm. S1, S2 NO S3 OR S4 RESPIRATORY: No accessory muscle use. Clear to auscultation. Breath sounds equal bilaterally. GASTROINTESTINAL: Abdomen soft, non-tender, nondistended. Hepatic and splenic margins not palpable. MUSCULOSKELETAL: Extremities without clubbing, cyanosis, or edema. No obvious deformities. NEUROLOGICAL: Awake and alert. No obvious cranial nerve deficits. Motor grossly within normal limits. 4 out of 5 muscle strength in the arms and legs. Normal speech. PSYCHIATRIC: INAppropriate mood and affect; insight and judgment ABnormal. Procedures 10/05/16 right frontal twist drill for ventriculostomy placement 10/20/16 arterial line placement 10/23/16 bedside percutaneous tracheostomy under direct bronchoscopic visualization 10/24/16 PEG tube placement at bedside Medications and IVs Laboratory Tests Test 04/15/17 10:26 Blood Urea Nitrogen 18 MG/DL Creatinine 1.37 MG/DL Random Glucose 136 MG/DL Calcium Level 9.0 MG/DL Sodium Level 142 MEQ/L Potassium Level 3.5 MEQ/L Chloride Level 108 MEQ/L Carbon Dioxide Level 27.0 MEQ/L Anion Gap 7 MEQ/L Estimat Glomerular Filtration Rate 55 ML/MIN Urinary Catheter: No Vascular Central Line Catheter: No A/P Problem List: (1) 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 ICD Code: I60.8 - Other nontraumatic subarachnoid hemorrhage Status: Acute (2) Hypertension ICD Code: I10 - Essential (primary) hypertension Status: Chronic (3) Major neurocognitive disorder due to vascular disease, without behavioral disturbance, severe ICD Code: F01.50 - Vascular dementia without behavioral disturbance Status: Acute (4) Intracranial hemorrhage ICD Code: I62.9 - Nontraumatic intracranial hemorrhage, unspecified Status: Resolved (5) Major neurocognitive disorder as late effect of traumatic brain injury with behavioral disturbance ICD Code: S06.9X9S - Unspecified intracranial injury with loss of consciousness of unspecified duration, sequela; F02.81 - Dementia in other diseases classified elsewhere with behavioral disturbance Status: Acute (6) Encephalopathy ICD Code: G93.40 - Encephalopathy, unspecified Status: Acute (7) Acute respiratory failure with hypoxia and hypercarbia ICD Code: J96.01 - Acute respiratory failure with hypoxia; J96.02 - Acute respiratory failure with hypercapnia Status: Acute Assessment and Plan Mr. Nunez is a 51 year old male who was brought to the hospital as a trauma alert due to head injury after he fell in the bathroom and hit his head. Patient was unresponsive for approximately 15 minutes by the time ambulance services arrived. His mentation waxed and waned with GCS ranging from [address] head indicated subarachnoid hemorrhage, acute. 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 Neuropsychology following patient ultimately for discharge placement and assistance with recommendations. Per neuropsychology note, ongoing areas of concern include behavioral impulsivity, lack of insight and judgement. - Speech therapy recommends regular diet with thin liquids. Patient is eating well. PEG dc'd 01/08/17. - Continue Seroquel 100mg BID per psychiatry HTN - controlled - continue on Norvasc 5mg daily and Labetalol 100mg q8h Acute hypoxic hypercarbic respiratory failure, resolved - Tracheostomy 10/23/16, removed, old trach site healed. - Monitor respiratory status - stable on RA C. difficile colitis, resolved - Completed Flagyl on 10/23 - No diarrhea reported - off Lactinex RENAL INSUFFICIENCY APPEARS CHRONIC NOW DVT prophylaxis: SCDs, YOUSIF hose, Lovenox. Ambulation. GI prophylaxis: Protonix. Discussed with patient asked to increase water intake. Discharge Planning AWAIT SAFE PLACEMENT Problem Qualifiers (1) Hypertension: Grieper,Christian M. DO Apr 16, 2017 12:57
[2017-04-16 16:09] VITALS: BP 112/73; PULSE 97; RESP 18; TEMP 97.4; O2SAT 92
[2017-04-16 20:00] VITALS: BP 123/76; PULSE 92; RESP 18; TEMP 97.1; O2SAT 91
[2017-04-16] MEDS: ENOXAPARIN SODIUM 40 MG/0.4 ML SYRINGE SQ SCH (22:31)
[2017-04-17] VITALS: BP 135/73; PULSE 91; RESP 18; TEMP 98; O2SAT 93
[2017-04-17 04:00] VITALS: BP 134/83; PULSE 83; RESP 18; TEMP 98.2; O2SAT 94
[2017-04-17] MEDS: LABETALOL HCL 100 MG TAB PO SCH ×3 (04:00→23:04)
[2017-04-17 08:38] VITALS: BP 140/83; PULSE 83; RESP 20; TEMP 97.8; O2SAT 94
[2017-04-17] MEDS: POTASSIUM CHLORIDE 20 MEQ CONTROLLED RELEASE TAB PO SCH (09:10)
[2017-04-17] MEDS: amLODIPine BESYLATE 5 MG TAB PO SCH (09:11)
[2017-04-17] MEDS: DOCUSATE SODIUM 50 MG/SENNA 8.6 MG TAB PO SCH ×2 (09:11→23:04)
[2017-04-17] MEDS: QUEtiapine FUMARATE 100 MG TAB PO SCH ×2 (09:11→12:32)
[2017-04-17] MEDS: PRAVASTATIN SOD 40 MG TAB PO SCH (09:11)
[2017-04-17] MEDS: LACTULOSE SYRUP 20 GM/30 ML CUP PO SCH (09:12)
[2017-04-17] MEDS: PANTOPRAZOLE SOD 40 MG DELAYED RELEASE TAB PO SCH (09:12)
[2017-04-17 12:12] VITALS: BP 154/92; PULSE 89; RESP 20; TEMP 98.3; O2SAT 96
--- NOTE | 2017-04-17 12:58 | HHI.PR ---
Subjective Remarks NO NEW COMPLAINTS STILL AWAITS SAFE PLACEMENT DW RN AND PT TOLERATING A DIET LISTENING TO TELEVISION 04-17 patient is SITTING ON SIDE OF BED NO SOB, NO CHEST PAIN, NO PALPITATIONS HAVING BOWEL MOVEMENTS DW RN AND PT Objective Vitals Vital Signs Date Time Temp Pulse Resp B/P (MAP) Pulse Ox O2 Delivery O2 Flow Rate FiO2 04/17/17 12:12 98.3 89 20 154/92 (112) 96 04/17/17 08:38 97.8 83 20 140/83 (102) 94 04/17/17 04:00 98.2 83 18 134/83 (100) 94 04/17/17 00:00 98.0 91 18 135/73 (93) 93 04/16/17 20:00 97.1 92 18 123/76 (92) 91 04/16/17 16:09 97.4 97 18 112/73 (86) 92 I/O 04/16/17 04/16/17 04/16/17 04/17/17 04/17/17 04/17/17 07:00 15:00 23:00 07:00 15:00 23:00 Intake Total 960 ml 480 ml Balance 960 ml 480 ml Intake Oral 960 ml 480 ml # Voids 4 5 3 4 # Bowel Movements 1 1 1 Result Diagram: 04/15/17 1026 Other Results Laboratory Tests Test 04/15/17 10:26 Blood Urea Nitrogen 18 MG/DL Creatinine 1.37 MG/DL Random Glucose 136 MG/DL Calcium Level 9.0 MG/DL Sodium Level 142 MEQ/L Potassium Level 3.5 MEQ/L Chloride Level 108 MEQ/L Carbon Dioxide Level 27.0 MEQ/L Anion Gap 7 MEQ/L Estimat Glomerular Filtration Rate 55 ML/MIN Imaging Last Impressions Chest X-Ray 02/18/17 0000 Signed Impressions: Service Date/Time: Saturday, February 18, 2017 10:51 - CONCLUSION: Diminished lung volumes. No infiltrate. Tyrese Raymond MD Abdomen X-Ray 02/18/17 0000 Signed Impressions: Service Date/Time: Saturday, February 18, 2017 10:56 - CONCLUSION: Unremarkable abdomen. Tyrese Raymond MD Gall Bladder Ultrasound 02/17/17 0000 Signed Impressions: Service Date/Time: Friday, February 17, 2017 17:45 - CONCLUSION: Mildly enlarged liver and small amount of gallbladder sludge. Tim Hammonds MD Head CT 12/09/16 0000 Signed Impressions: Service Date/Time: Friday, December 09, 2016 17:36 - CONCLUSION: 1. Right ventriculostomy tube remains in place with decrease in ventricular size since November 24. There is some encephalomalacia around the shunt and a probable small infarct in the left basal ganglia. No new hemorrhage or shift. Tip Harris MD Transcranial Doppler Study Complete 10/26/16 0700 Signed Impressions: Service Date/Time: Wednesday, October 26, 2016 08:20 - CONCLUSION: Minimal interval improvement with no evidence for vasospasm. Christian Song MD FACR Neck CTA 10/19/16 0000 Signed Impressions: Service Date/Time: Wednesday, October 19, 2016 14:19 - CONCLUSION: Negative for dissection or significant stenosis. Christian Song MD FACR Head CTA 10/19/16 0000 Signed Impressions: Service Date/Time: Wednesday, October 19, 2016 14:19 - CONCLUSION: 1. Interval development of significant vasospasm in the left MCA and SRI territories. 2. Mild vasospasm in the basilar artery.. Gume Mckeon MD Cerebral Arteriogram 10/19/16 0000 Signed Impressions: Service Date/Time: Wednesday, October 19, 2016 16:06 - CONCLUSION: 1. Vasospasm in the left MCA and SRI territories 2. Spasmolytic infusion, left internal carotid artery as above.. 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 Gume Mckeon MD Pelvis X-Ray 10/05/16 0110 Signed Impressions: Service Date/Time: Wednesday, October 05, 2016 01:22 - CONCLUSION: Unremarkable examination of the pelvis. Ruben Acuña Jr., MD Chest CT 10/05/16 0110 Signed Impressions: Service Date/Time: Wednesday, October 05, 2016 01:46 - CONCLUSION: 1. No acute intrathoracic abnormality. 2. Bibasilar atelectasis. 3. Cardiomegaly. 4. Prior granulomatous disease. Ruben Acuña Jr., MD Cervical Spine CT 10/05/16109 Signed Impressions: Service Date/Time: Wednesday, October 05, 2016 01:40 - CONCLUSION: 1. No fracture or dislocation. 2. Multilevel degenerative changes. Ruben Acuña Jr., MD Abdomen/Pelvis CT 10/05/16109 Signed Impressions: Service Date/Time: Wednesday, October 05, 2016 01:46 - CONCLUSION: 1. No acute trauma. 2. Rounded area of decreased density involving the pancreatic head. I cannot completely exclude pancreatic head mass. At some point MRI of the pancreas is suggested to further evaluate. 3. Focal area of poor enhancement involving the left kidney. This may relate to an area of parenchymal scarring. I cannot completely exclude a mass. This can be further assessed with MRI as well. Ruben Acuña Jr., MD Objective Remarks GENERAL: AWAKE AND ALERT SKIN: Warm and dry. HEAD: Atraumatic. Normocephalic. EYES: Pupils equal and round. No scleral icterus. No injection or drainage. BLINDNESS-SEES SHADOWS ENT: No nasal bleeding or discharge. Mucous membranes pink and moist.TONGUE MIDLINE NECK: Trachea midline. No JVD. SUPPLE CARDIOVASCULAR: Regular rate and rhythm. S1, S2 NO S3 OR S4 RESPIRATORY: No accessory muscle use. Clear to auscultation. Breath sounds equal bilaterally. GASTROINTESTINAL: Abdomen soft, non-tender, nondistended. Hepatic and splenic margins not palpable. MUSCULOSKELETAL: Extremities without clubbing, cyanosis, or edema. No obvious deformities. NEUROLOGICAL: Awake and alert. No obvious cranial nerve deficits. Motor grossly within normal limits. 4 out of 5 muscle strength in the arms and legs. Normal speech. PSYCHIATRIC: INAppropriate mood and affect; insight and judgment ABnormal. Procedures 10/05/16 right frontal twist drill for ventriculostomy placement 10/20/16 arterial line placement 10/23/16 bedside percutaneous tracheostomy under direct bronchoscopic visualization 10/24/16 PEG tube placement at bedside Medications and IVs Current Medications Propofol 100 ml @ As Directed STK-MED ONCE .ROUTE ; Start 10/05/16 at 01:16; Stop 10/05/16 at :17; Status DC Cefazolin Sodium/ Dextrose 50 ml @ As Directed STK-MED ONCE .ROUTE ; Start at 01:23; Stop 10/05/16 at 01:24; Status DC Cefazolin Sodium/ Dextrose 50 ml @ 100 mls/hr ONCE STAT IV ; Start 10/05/16 at 01:26; Stop 10/05/16 at 01:55; Status DC Diphtheria/ Tetanus/Acell Pertussis (Boostrix Inj) 0.5 ml ONCE ONCE IM ; Start 10/05/16 at 01:26; Stop 10/05/16 at 01:28; Status DC Nicardipine HCl (Cardene Inj) 25 mg STK-MED ONCE .ROUTE ; Start 10/05/16 at 01:26 ; Stop 10/05/16 at 01:27; Status DC Nicardipine HCl (Cardene Inj) 25 mg STK-MED ONCE .ROUTE ; Start 10/05/16 at 01:27 ; Stop 10/05/16 at 01:28; Status DC Sodium Chloride 1,000 ml @ 0 mls/hr Q0M IV ; Start 10/05/16 at 01:30; Stop at 02:57; Status DC Nicardipine HCl 25 mg/Sodium Chloride 260 ml @ 0 mls/hr TITRATE ONCE IV Last administered on 10/05/16 02:00; Start 10/05/16 at 02:00; Stop 10/05/16 at 02:01; Status DC Iohexol (Omnipaque 350 Inj) 97 ml STK-MED ONCE IV Last administered on 02:11; Start 10/05/16 at 02:11; Stop 10/05/16 at 02:12; Status DC Etomidate (Amidate Inj) 20 mg STK-MED ONCE .ROUTE ; Start 10/05/16 at 02:13; Stop 10/05/16 at 02:14; Status DC Epinephrine HCl (EPINEPHrine (1:10,000) INJ) 1 mg STK-MED ONCE .ROUTE ; Start at 02:32; Stop 10/05/16 at 02:33; Status DC Atropine Sulfate (Atropine Inj) 1 mg STK-MED ONCE .ROUTE ; Start 10/05/16 at 02: 33; Stop 10/05/16 at 02:34; Status DC Lidocaine HCl (Xylocaine 2% Inj) 100 mg STK-MED ONCE .ROUTE ; Start 10/05/16 at 02:33; Stop 10/05/16 at 02:34; Status DC Sodium Chloride 1,000 ml @ 84 mls/hr [id number] IV Last administered on 23:55; Start 10/05/16 at 02:31; Stop 10/15/16 at 22:17; Status DC Acetaminophen (Tylenol) 650 mg Q6H PRN PO PAIN 1-10 AND/OR FEVER >101F Last administered on 04/04/17 20:54; Start 10/05/16 at 02:45 Morphine Sulfate (Morphine Inj) 2 mg Q2H PRN IV PAIN SCALE 6 TO 10 Last administered on 10/15/16 19:04; Start 10/05/16 at 02:45; Stop 10/22/16 at 06:04 ; Status DC Pantoprazole Sodium (Protonix Inj) 40 mg DAILY IV Last administered on 08:37; Start 10/05/16 at 09:00; Stop 12/15/16 at 12:50; Status DC Lorazepam (Ativan Inj) 2 mg Q4H PRN IV Agitation/Sedation Last administered on 10/11/16 12:27; Start 10/05/16 at 02:45; Stop 10/18/16 at 14:41; Status DC Artificial Tears (Tears Naturale Opth Soln) 1 drop TID EACH EYE Last administered on 02/11/17 18:00; Start 10/05/16 at 09:00; Stop 02/12/17 at 09:41 ; Status DC Ondansetron HCl (Zofran Inj) 4 mg Q6H PRN IV NAUSEA OR VOMITING Last administered on 11/27/16 23:26; Start 10/05/16 at 02:45 Metoclopramide HCl (Reglan Inj) 10 mg Q6H PRN IV NAUSEA OR VOMITING Last administered on 10/13/16 09:48; Start 10/05/16 at 02:45; Stop 10/19/16 at 07:38 ; Status DC Docusate Sodium (Colace) 100 mg Q12H G-TUBE Last administered on 10/30/16 05: 12; Start 10/05/16 at 04:00; Stop 10/31/16 at 16:41; Status DC Albuterol/ Ipratropium (Duoneb Neb) 1 ampule Q2HR NEB PRN INH WHEEZING Last administered on 10/31/16 13:41; Start 10/05/16 at 02:45; Stop 02/12/17 at 09:42; Status DC Miscellaneous Information 1 [id number] Last administered on 10/05/16 02:45; Start 10/05/16 at 02:45 Chlorhexidine Gluconate (Chlorhexidine 2% Cloth) Taper DAILY@04 TOP Last administered on 01/02/17 04:00; Start 10/05/16 at 04:00; Stop 02/12/17 at 09:41; Status DC Chlorhexidine Gluconate (Chlorhexidine 2% Cloth) 3 pack UNSCH PRN TOP HYGIENIC CARE; Start 10/05/16 at 02:45; Stop 02/12/17 at 09:41; Status DC Propofol 100 ml @ 0 mls/hr TITRATE IV Last administered on 10/13/16 16:58; Start 10/05/16 at 02:45; Stop 10/18/16 at 14:41; Status DC Nimodipine (Nimotop) 60 mg Q4HR PO ; Start 10/05/16 at 04:00; Stop 10/05/16 at 04: 00; Status DC Potassium Chloride/Sodium Chloride 1,000 ml @ 100 mls/hr Q10H IV ; Start at 02:15; Stop 10/05/16 at 02:56; Status DC Levetriacetam 500 mg/Sodium Chloride 105 ml @ 420 mls/hr Q12HR IV Last administered on 11/26/16 20:08; Start 10/05/16 at 09:00; Stop 11/26/16 at 22:02 ; Status DC Nicardipine HCl 25 mg/Sodium Chloride 260 ml @ 0 mls/hr TITRATE IV Last administered on 10/18/16 11:23; Start 10/05/16 at 02:45; Stop 11/05/16 at 13:47; Status DC Labetalol HCl (Trandate Inj) 10 mg Q4H PRN IV PUSH SBP>140, DBP>90 Last administered on 11/03/16 05:45; Start 10/05/16 at 02:45; Stop 11/05/16 at 13:47; Status DC Nimodipine (Nimotop) 60 mg Q4HR PO Last administered on 10/17/16 07:16; Start 10/05/16 at 04:00; Stop 10/17/16 at 10:55; Status DC Pravastatin Sodium (Pravachol) 40 mg DAILY PO Last administered on 04/17/17 09:11; Start 10/05/16 at 09:00 Iohexol (Omnipaque 350 Inj) 75 ml STK-MED ONCE IV Last administered on 04:15; Start 10/05/16 at 04:15; Stop 10/05/16 at 04:16; Status DC Verapamil HCl (Isoptin Inj) 10 mg STK-MED ONCE .ROUTE Last administered on 13:04; Start 10/05/16 at 13:04; Stop 10/05/16 at 13:05; Status DC Heparin Sodium (Porcine) (*HEPARIN INJ Periprocedural ONLY) 10,000 units STK- MED ONCE .ROUTE Last administered on 10/05/16 14:16; Start 10/05/16 at 15:05; Stop 10/05/16 at 15:06; Status DC Iodixanol (Visipaque 320 Inj) 120 ml STK-MED ONCE I-ARTERIAL Last administered on 10/05/16 16:18; Start 10/05/16 at 16:18; Stop 10/05/16 at 16:19; Status DC Fentanyl Citrate (fentaNYL INJ) 100 mcg STK-MED ONCE .ROUTE ; Start 10/05/16 at 16:49; Stop 10/05/16 at 16:50; Status DC Fentanyl Citrate 250 ml @ 0 mls/hr TITRATE IV Last administered on 10/17/16 00 :29; Start 10/05/16 at 22:15; Stop 10/17/16 at 11:30; Status DC Norepinephrine Bitartrate (Levophed Inj) 4 mg STK-MED ONCE .ROUTE ; Start at 04:03; Stop 10/06/16 at 04:04; Status DC Sodium Chloride 999 ml @ 0 mls/hr BOLUS ONCE IV Last administered on 10/06/16 06:38; Start 10/06/16 at 06:45; Stop 10/06/16 at 06:46; Status DC Sodium Chloride (NS Flush) See Protocol DAILY IV FLUSH Last administered on 12/05 09:00; Start 10/07/16 at 09:00; Stop 12/05/16 at 10:21; Status DC Sodium Chloride (NS Flush) See Protocol UNSCH PRN IV FLUSH SEE PROTOCOL TABLE; Start 10/06/16 at 12:00; Stop 12/05/16 at 10:21; Status DC Heparin Sodium (Porcine) (Heparin Central Flush) See Protocol DAILY IV FLUSH Last administered on 10/13/16 09:00; Start 10/07/16 at 09:00; Stop 10/18/16 at 14:41; Status DC Heparin Sodium (Porcine) (Heparin Central Flush) See Protocol UNSCH PRN IV FLUSH SEE PROTOCOL TABLE Last administered on 10/11/16 08:00; Start 10/06/16 at 12:00; Stop 10/18/16 at 14:41; Status DC Sodium Chloride (NS Flush) UNSCH PRN IV FLUSH SEE PROTOCOL TABLE Last administered on 11/21/16 19:37; Start 10/06/16 at 12:00; Stop 12/05/16 at 10:21; Status DC Norepinephrine Bitartrate (Levophed Inj) 4 mg STK-MED ONCE .ROUTE ; Start at 17:30; Stop 10/06/16 at 17:31; Status DC Norepinephrine Bitartrate 4 mg/ Sodium Chloride 254 ml @ 0 mls/hr TITRATE IV Last administered on 10/28/16 20:14; Start 10/06/16 at 18:00; Stop 11/26/16 at 22:03; Status DC Potassium Chloride 100 ml @ 50 mls/hr Q2H PRN IV For Potassium 2.8 - 3.2 mEq/L ; Start 10/07/16 at 08:00; Stop 10/12/16 at 13:11; Status DC Potassium Chloride 100 ml @ 50 mls/hr Q2H PRN IV For Potassium 2.8 - 3.2 mEq/L ; Start 10/07/16 at 08:00; Stop 10/12/16 at 13:11; Status DC Potassium Chloride 100 ml @ 25 mls/hr UNSCH PRN IV For Potassium 3.3 - 3.5 mEq /L Last administered on 10/07/16 15:56; Start 10/07/16 at 08:00; Stop 10/12/16 at 13:11; Status DC Potassium Chloride 100 ml @ 50 mls/hr Q2H PRN IV For Potassium 3.3 - 3.5 mEq/ L Last administered on 10/11/16 07:41; Start 10/07/16 at 08:00; Stop 10/12/16 at 13:11; Status DC Magnesium Sulfate 4 gm/Sodium Chloride 100 ml @ 50 mls/hr UNSCH PRN IV For Magnesium 0.9 - 1.1 mg/dL; Start 10/07/16 at 08:00; Stop 10/12/16 at 13:11; Status DC Magnesium Oxide (Mag-Ox) 800 mg UNSCH PRN PO For Magnesium 1.2 - 1.6 mg/dL; Start 10/07/16 at 08:00; Stop 10/12/16 at 13:11; Status DC Magnesium Sulfate 2 gm/Sodium Chloride 100 ml @ 50 mls/hr UNSCH PRN IV For Magnesium 1.2 - 1.6 mg/dL; Start 10/07/16 at 08:00; Stop 10/12/16 at 13:11; Status DC Potassium Phosphate (K-Phos) 2,000 mg Q4H PRN PO For Phosphorus < 2.5 mg/dL; Start 10/07/16 at 08:00; Stop 10/12/16 at 13:11; Status DC Sodium Phosphate 30 mmol/Sodium Chloride 250 ml @ 42 mls/hr UNSCH PRN IV For Phosphorus < 2.5 mg/dL; Start 10/07/16 at 08:00; Stop 10/12/16 at 13:11; Status DC Potassium Phosphate (K-Phos) 2,000 mg UNSCH PRN PO/TUBE SEE LABEL COMMENTS Last administered on 10/07/16 15:56; Start 10/07/16 at 08:00; Stop 10/12/16 at 13 :11; Status DC Potassium Phosphate 30 mmol/ Sodium Chloride 260 ml @ 42 mls/hr UNSCH PRN IV SEE LABEL COMMENTS Last administered on 10/08/16 11:23; Start 10/07/16 at 08:00; Stop 10/12/16 at 13:11; Status DC Clonidine (Catapres) 0.1 mg Q8H PRN NG SBP>170, DBP>90 Last administered on 00:28; Start 10/09/16 at 16:15; Stop 10/18/16 at 14:41; Status DC Polyethylene Glycol (Miralax) 17 gm DAILY PO Last administered on 10/28/16 09: 09; Start 10/10/16 at 14:00; Stop 10/30/16 at 15:12; Status DC Lactulose (Lactulose Liq) 30 ml DAILY PO Last administered on 10/28/16 09:09; Start 10/10/16 at 14:00; Stop 10/30/16 at 15:12; Status DC Metoprolol Tartrate (Lopressor) 25 mg Q6H PO Last administered on 10/18/16 09: 36; Start 10/10/16 at 14:00; Stop 10/18/16 at 14:41; Status DC Labetalol HCl 500 mg/Sodium Chloride 250 ml @ 0 mls/hr TITRATE IV ; Start at 17:00; Stop 10/18/16 at 14:41; Status DC Sodium Chloride 250 ml @ As Directed STK-MED ONCE .ROUTE ; Start 10/11/16 at 02 :29; Stop 10/11/16 at 02:30; Status DC Nicardipine HCl (Cardene Inj) 25 mg STK-MED ONCE .ROUTE ; Start 10/11/16 at 02: 29; Stop 10/11/16 at 02:30; Status DC Tamsulosin HCl (Flomax) 0.4 mg Q12HR PO Last administered on 10/17/16 07:16; Start 10/11/16 at 09:00; Stop 10/18/16 at 14:41; Status DC Epinephrine HCl (EPINEPHrine (1:10,000) INJ) 1 mg STK-MED ONCE .ROUTE ; Start at 09:51; Stop 10/11/16 at 09:52; Status DC Atropine Sulfate (Atropine Inj) 1 mg STK-MED ONCE .ROUTE ; Start 10/11/16 at 09: 51; Stop 10/11/16 at 09:52; Status DC Lidocaine HCl (Xylocaine 2% Inj) 100 mg STK-MED ONCE .ROUTE ; Start 10/11/16 at 09:51; Stop 10/11/16 at 09:52; Status DC Iohexol (Omnipaque 350 Inj) 100 ml STK-MED ONCE IV Last administered on 10:56; Start 10/11/16 at 10:56; Stop 10/11/16 at 10:57; Status DC Norepinephrine Bitartrate (Levophed Inj) 4 mg STK-MED ONCE .ROUTE ; Start at 20:25; Stop 10/11/16 at 20:26; Status DC Aztreonam 2000 mg/ Sodium Chloride 100 ml @ 200 mls/hr Q8H IV Last administered on 10/19/16 01:39; Start 10/12/16 at 02:00; Stop 10/19/16 at 07:38 ; Status DC Pharmacy Profile Note 0 ml @ 0 mls/hr UNSCH OTHER ; Start 10/12/16 at 02:15; Stop 10/13/16 at 17:17; Status DC Metronidazole 100 ml @ 100 mls/hr Q6H IV Last administered on 10/19/16 03:33 ; Start 10/12/16 at 03:00; Stop 10/19/16 at 07:39; Status DC Vancomycin HCl 2500 mg/Sodium Chloride 525 ml @ 250 mls/hr ONCE ONCE IV Last administered on 10/12/16 04:00; Start 10/12/16 at 04:00; Stop 10/12/16 at 06:05 ; Status DC Vancomycin HCl 2000 mg/Sodium Chloride 520 ml @ 250 mls/hr ONCE ONCE IV Last administered on 10/13/16 11:30; Start 10/13/16 at 11:00; Stop 10/13/16 at 17:17 ; Status DC Epinephrine HCl (EPINEPHrine (1:10,000) INJ) 1 mg STK-MED ONCE .ROUTE ; Start at 03:26; Stop 10/14/16 at 03:27; Status DC Atropine Sulfate (Atropine Inj) 1 mg STK-MED ONCE .ROUTE ; Start 10/14/16 at 03: 26; Stop 10/14/16 at 03:27; Status DC Lidocaine HCl (Xylocaine 2% Inj) 100 mg STK-MED ONCE .ROUTE ; Start 10/14/16 at 03:27; Stop 10/14/16 at 03:28; Status DC Potassium Chloride 100 ml @ 50 mls/hr Q2H PRN IV For Potassium 2.8 - 3.2 mEq/ L Last administered on 10/30/16 05:12; Start 10/14/16 at 16:00; Stop 10/30/16 at 15:11; Status DC Potassium Chloride 100 ml @ 50 mls/hr Q2H PRN IV For Potassium 2.8 - 3.2 mEq/ L Last administered on 10/30/16 13:40; Start 10/14/16 at 16:00; Stop 10/30/16 at 15:11; Status DC Potassium Bicarb/ Potassium Chloride (K-Lyte Cl Eff) 50 meq UNSCH PRN PO For Potassium 3.3 - 3.5 mEq/L Last administered on 10/30/16 05:12; Start 10/14/16 at 16:00; Stop 10/30/16 at 15:11; Status DC Potassium Chloride 100 ml @ 25 mls/hr UNSCH PRN IV For Potassium 3.3 - 3.5 mEq /L Last administered on 10/18/16 06:50; Start 10/14/16 at 16:00; Stop 10/30/16 at 15:11; Status DC Potassium Chloride 100 ml @ 50 mls/hr Q2H PRN IV For Potassium 3.3 - 3.5 mEq/ L Last administered on 10/27/16 07:41; Start 10/14/16 at 16:00; Stop 10/30/16 at 15:11; Status DC Magnesium Sulfate 4 gm/Sodium Chloride 100 ml @ 50 mls/hr UNSCH PRN IV For Magnesium 0.9 - 1.1 mg/dL; Start 10/14/16 at 16:00; Stop 10/30/16 at 15:11; Status DC Magnesium Oxide (Mag-Ox) 800 mg UNSCH PRN PO For Magnesium 1.2 - 1.6 mg/dL; Start 10/14/16 at 16:00; Stop 10/30/16 at 15:11; Status DC Magnesium Sulfate 2 gm/Sodium Chloride 100 ml @ 50 mls/hr UNSCH PRN IV For Magnesium 1.2 - 1.6 mg/dL; Start 10/14/16 at 16:00; Stop 10/30/16 at 15:11; Status DC Potassium Phosphate (K-Phos) 2,000 mg Q4H PRN PO For Phosphorus < 2.5 mg/dL Last administered on 10/17/16 02:00; Start 10/14/16 at 16:00; Stop 10/30/16 at 15:11; Status DC Sodium Phosphate 30 mmol/Sodium Chloride 250 ml @ 42 mls/hr UNSCH PRN IV For Phosphorus < 2.5 mg/dL Last administered on 10/24/16 20:31; Start 10/14/16 at 16:00; Stop 10/30/16 at 15:11; Status DC Potassium Phosphate (K-Phos) 2,000 mg UNSCH PRN PO/TUBE SEE LABEL COMMENTS Last administered on 10/18/16 06:51; Start 10/14/16 at 16:00; Stop 10/30/16 at 15:11; Status DC Potassium Phosphate 30 mmol/ Sodium Chloride 260 ml @ 42 mls/hr UNSCH PRN IV SEE LABEL COMMENTS; Start 10/14/16 at 16:00; Stop 10/30/16 at 15:11; Status DC Verapamil HCl (Isoptin Inj) 15 mg STK-MED ONCE .ROUTE Last administered on 10/15 12:55; Start 10/15/16 at 12:55; Stop 10/15/16 at 12:56; Status DC Verapamil HCl (Isoptin Inj) 5 mg STK-MED ONCE .ROUTE Last administered on 13:33; Start 10/15/16 at 13:33; Stop 10/15/16 at 13:34; Status DC Iodixanol (Visipaque 320 Inj) 75 ml STK-MED ONCE I-ARTERIAL Last administered on 10/15/16 13:52; Start 10/15/16 at 13:52; Stop 10/15/16 at 13:53; Status DC Sodium Chloride 250 ml @ As Directed STK-MED ONCE .ROUTE ; Start 10/15/16 at 20 :40; Stop 10/15/16 at 20:41; Status DC Nicardipine HCl (Cardene Inj) 25 mg STK-MED ONCE .ROUTE ; Start 10/15/16 at 20: 40; Stop 10/15/16 at 20:41; Status DC Sodium Chloride 250 ml @ As Directed STK-MED ONCE .ROUTE ; Start 10/15/16 at 22 :51; Stop 10/15/16 at 22:52; Status DC Nicardipine HCl (Cardene Inj) 25 mg STK-MED ONCE .ROUTE ; Start 10/15/16 at 22: 51; Stop 10/15/16 at 22:52; Status DC Sodium Chloride 250 ml @ As Directed STK-MED ONCE .ROUTE ; Start 10/16/16 at 01 :03; Stop 10/16/16 at 01:04; Status DC Nicardipine HCl (Cardene Inj) 25 mg STK-MED ONCE .ROUTE ; Start 10/16/16 at 01: 03; Stop 10/16/16 at 01:05; Status DC Sodium Chloride 250 ml @ As Directed STK-MED ONCE .ROUTE ; Start 10/16/16 at 01 :47; Stop 10/16/16 at 01:48; Status DC Nicardipine HCl (Cardene Inj) 25 mg STK-MED ONCE .ROUTE ; Start 10/16/16 at 01: 47; Stop 10/16/16 at 01:48; Status DC Nicardipine HCl (Cardene Inj) 25 mg STK-MED ONCE .ROUTE ; Start 10/16/16 at 03: 51; Stop 10/16/16 at 03:52; Status DC Epinephrine HCl (EPINEPHrine (1:10,000) INJ) 1 mg STK-MED ONCE .ROUTE ; Start at 03:57; Stop 10/16/16 at 03:58; Status DC Atropine Sulfate (Atropine Inj) 1 mg STK-MED ONCE .ROUTE ; Start 10/16/16 at 03: 57; Stop 10/16/16 at 03:58; Status DC Lidocaine HCl (Xylocaine 2% Inj) 100 mg STK-MED ONCE .ROUTE ; Start 10/16/16 at 03:57; Stop 10/16/16 at 03:58; Status DC Diphenhydramine HCl (Benadryl Inj) 25 mg Q6H PRN IV RASH Last administered on 03:12; Start 10/16/16 at 08:15; Stop 10/18/16 at 14:41; Status DC Nimodipine (Nimotop) 30 mg Q2H PO Last administered on 10/26/16 06:53; Start 10/17/16 at 11:00; Stop 10/26/16 at 08:46; Status DC Iohexol (Omnipaque 350 Inj) 70 ml STK-MED ONCE IV Last administered on 14:36; Start 10/19/16 at 14:36; Stop 10/19/16 at 14:37; Status DC Phenylephrine HCl 40 mg/Sodium Chloride 500 ml @ 0 mls/hr TITRATE IV Last administered on 10/20/16 16:29; Start 10/19/16 at 16:30; Stop 10/23/16 at 10:42 ; Status DC Alteplase, Recombinant (Cathflo Activase Inj) 2 mg UNSCH PRN IV FLUSH PICC LINE OCCLUSION Last administered on 11/01/16 21:47; Start 10/19/16 at 16:15; Stop 11/05/16 at 13:47; Status DC Verapamil HCl (Isoptin Inj) 5 mg STK-MED ONCE .ROUTE Last administered on 17:20; Start 10/19/16 at 16:05; Stop 10/19/16 at 16:06; Status DC Midazolam HCl (Versed Inj) 2 mg STK-MED ONCE .ROUTE Last administered on 17:18; Start 10/19/16 at 17:18; Stop 10/19/16 at 17:19; Status DC Verapamil HCl (Isoptin Inj) 5 mg STK-MED ONCE .ROUTE Last administered on 17:27; Start 10/19/16 at 17:27; Stop 10/19/16 at 17:28; Status DC Iodixanol (Visipaque 320 Inj) 100 ml STK-MED ONCE I-ARTERIAL Last administered on 10/19/16 18:08; Start 10/19/16 at 18:08; Stop 10/19/16 at 18:09; Status DC Diphenhydramine HCl (Benadryl Inj) 6.25 mg Q4H PRN IV PUSH itching, rash Last administered on 11/04/16 20:45; Start 10/19/16 at 19:15; Stop 11/05/16 at 13:47; Status DC Vancomycin HCl 1250 mg/Sodium Chloride 262.5 ml @ 250 mls/hr ONCE ONCE IV ; Start 10/20/16 at 12:30; Stop 10/20/16 at 12:33; Status DC Cefepime HCl 2000 mg/Sodium Chloride 100 ml @ 200 mls/hr Q8H IV Last administered on 10/29/16 21:00; Start 10/20/16 at 13:00; Stop 10/29/16 at 23:59 ; Status DC Metronidazole 100 ml @ 100 mls/hr Q6H IV Last administered on 10/23/16 08:13 ; Start 10/20/16 at 14:00; Stop 10/23/16 at 10:43; Status DC Vancomycin HCl 1250 mg/Sodium Chloride 262.5 ml @ 250 mls/hr ONCE ONCE IV Last administered on 10/20/16 15:00; Start 10/20/16 at 15:00; Stop 10/20/16 at 16:02; Status DC Vasopressin 40 units/Dextrose 100 ml @ 6 mls/hr [id number] IV Last administered on 10/23/16 04:16; Start 10/20/16 at 15:23; Stop 10/23/16 at 10:43; Status DC Dextrose (D50w (Vial) Inj) 25 ml UNSCH PRN IV PUSH HYPOGLYCEMIA-SEE COMMENTS; Start 10/20/16 at 17:15; Stop 10/30/16 at 15:07; Status DC Insulin Human Regular (NovoLIN R SUPPLEMENTAL SCALE) 1 Q6HR SQ Last administered on 10/23/16 05:39; Start 10/20/16 at 18:00; Stop 10/30/16 at 15:07 ; Status DC Sodium Chloride 500 ml @ 500 mls/hr BOLUS ONCE IV Last administered on 18:27; Start 10/20/16 at 17:15; Stop 10/20/16 at 18:14; Status DC Sodium Chloride 1,000 ml @ 999 mls/hr BOLUS ONCE IV Last administered on 10/21 10:01; Start 10/21/16 at 08:30; Stop 10/21/16 at 09:30; Status DC Sodium Chloride 1,000 ml @ 60 mls/hr [id number] IV Last administered on 00:21; Start 10/21/16 at 08:30; Stop 11/18/16 at 08:54; Status DC Sodium Chloride (Sodium Chloride) 2 gm Q8HR PO Last administered on 10/22/16 04:56; Start 10/21/16 at 08:30; Stop 10/22/16 at 10:01; Status DC Sodium Chloride 500 ml @ 500 mls/hr BOLUS ONCE IV Last administered on 20:06; Start 10/21/16 at 19:15; Stop 10/21/16 at 20:14; Status DC Fludrocortisone Acetate (Florinef) 0.1 mg Q12HR PO Last administered on 09:13; Start 10/22/16 at 09:00; Stop 10/22/16 at 16:26; Status DC Sodium Chloride 500 ml @ 20 mls/hr ONCE ONCE IV Last administered on 06:15; Start 10/22/16 at 06:15; Stop 10/23/16 at 07:14; Status DC Sodium Chloride 1,000 ml @ 999 mls/hr BOLUS ONCE IV Last administered on 10/22 06:15; Start 10/22/16 at 06:15; Stop 10/22/16 at 07:15; Status DC Sodium Chloride (Sodium Chloride) 3 gm Q8HR PO Last administered on 11/16/16 05:48; Start 10/22/16 at 14:00; Stop 11/16/16 at 09:16; Status DC Fludrocortisone Acetate (Florinef) 0.2 mg Q12HR PO Last administered on 09:01; Start 10/22/16 at 21:00; Stop 12/19/16 at 15:24; Status DC Sodium Chloride 1,000 ml @ 999 mls/hr BOLUS ONCE IV Last administered on 10/22 16:49; Start 10/22/16 at 16:30; Stop 10/22/16 at 17:30; Status DC Sodium Chloride 500 ml @ 40 mls/hr CONTINUOUS IV Last administered on 18:50; Start 10/22/16 at 16:30; Stop 10/23/16 at 19:54; Status DC Sodium Chloride 500 ml @ 500 mls/hr BOLUS ONCE IV Last administered on 06:46; Start 10/23/16 at 06:45; Stop 10/23/16 at 07:44; Status DC Cisatracurium Besylate (Nimbex Inj) 20 mg STAT ONCE IV Last administered on 11:35; Start 10/23/16 at 10:30; Stop 10/23/16 at 11:01; Status DC Propofol 100 ml @ 0 mls/hr TITRATE IV ; Start 10/23/16 at 10:30; Stop 10/25/16 at 11:27; Status DC Fentanyl Citrate (fentaNYL INJ) 100 mcg STAT ONCE IV PUSH Last administered on 10/23/16 11:35; Start 10/23/16 at 10:30; Stop 10/23/16 at 11:02; Status DC Enoxaparin Sodium (Lovenox Inj) 40 mg Q24H SQ Last administered on 04/16/17 22:31; Start 10/23/16 at 21:00; Status Future hold Sodium Chloride 500 ml @ 20 mls/hr CONTINUOUS IV Last administered on 10:32; Start 10/23/16 at 20:00; Stop 10/25/16 at 20:01; Status DC Propofol (Diprivan 200 Mg/20 ml Inj) 130 mg STK-MED ONCE IV ; Start 10/24/16 at 08:53; Stop 10/24/16 at 10:11; Status DC Potassium Chloride 100 ml @ 50 mls/hr Q2H PRN IV For Potassium 2.8 - 3.2 mEq/ L Last administered on 11/03/16 05:17; Start 10/24/16 at 15:15; Stop 11/04/16 at 12:19; Status DC Potassium Chloride 100 ml @ 50 mls/hr Q2H PRN IV For Potassium 2.8 - 3.2 mEq/ L Last administered on 10/31/16 16:39; Start 10/24/16 at 15:15; Stop 11/04/16 at 12:19; Status DC Potassium Bicarb/ Potassium Chloride (K-Lyte Cl Eff) 50 meq UNSCH PRN PO For Potassium 3.3 - 3.5 mEq/L; Start 10/24/16 at 15:15; Stop 11/04/16 at 12:19; Status DC Potassium Chloride 100 ml @ 25 mls/hr UNSCH PRN IV For Potassium 3.3 - 3.5 mEq /L Last administered on 10/26/16 21:47; Start 10/24/16 at 15:15; Stop 11/04/16 at 12:19; Status DC Potassium Chloride 100 ml @ 50 mls/hr Q2H PRN IV For Potassium 3.3 - 3.5 mEq/L ; Start 10/24/16 at 15:15; Stop 11/04/16 at 12:19; Status DC Magnesium Sulfate 4 gm/Sodium Chloride 100 ml @ 50 mls/hr UNSCH PRN IV For Magnesium 0.9 - 1.1 mg/dL; Start 10/24/16 at 15:15; Stop 11/04/16 at 12:19; Status DC Magnesium Oxide (Mag-Ox) 800 mg UNSCH PRN PO For Magnesium 1.2 - 1.6 mg/dL; Start 10/24/16 at 15:15; Stop 11/04/16 at 12:19; Status DC Magnesium Sulfate 2 gm/Sodium Chloride 100 ml @ 50 mls/hr UNSCH PRN IV For Magnesium 1.2 - 1.6 mg/dL; Start 10/24/16 at 15:15; Stop 11/04/16 at 12:19; Status DC Potassium Phosphate (K-Phos) 2,000 mg Q4H PRN PO For Phosphorus < 2.5 mg/dL; Start 10/24/16 at 15:15; Stop 11/04/16 at 12:19; Status DC Sodium Phosphate 30 mmol/Sodium Chloride 250 ml @ 42 mls/hr UNSCH PRN IV For Phosphorus < 2.5 mg/dL; Start 10/24/16 at 15:15; Stop 11/04/16 at 12:19; Status DC Potassium Phosphate (K-Phos) 2,000 mg UNSCH PRN PO/TUBE SEE LABEL COMMENTS; Start 10/24/16 at 15:15; Stop 11/04/16 at 12:19; Status DC Potassium Phosphate 30 mmol/ Sodium Chloride 260 ml @ 42 mls/hr UNSCH PRN IV SEE LABEL COMMENTS; Start 10/24/16 at 15:15; Stop 12/05/16 at 10:20; Status DC Sodium Chloride 500 ml @ 10 mls/hr Q24H IV Last administered on 10/29/16 20: 54; Start 10/25/16 at 21:00; Stop 10/30/16 at 12:48; Status DC Cefepime HCl 2000 mg/Sodium Chloride 100 ml @ 200 mls/hr Q8HR IV Last administered on 11/06/16 05:05; Start 10/30/16 at 14:00; Stop 11/06/16 at 12:00; Status DC Fentanyl Citrate (fentaNYL INJ) 50 mcg Q3H PRN IV PAIN 1-10 Last administered on 11/05/16 05:07; Start 10/30/16 at 15:15; Stop 11/05/16 at 13:47; Status DC Docusate Sodium (Colace Liq) 100 mg Q12H G-TUBE Last administered on 11/03/16 17:00; Start 10/31/16 at 17:00; Stop 11/06/16 at 16:48; Status DC Potassium Chloride 100 ml @ 50 mls/hr Q2H PRN IV For Potassium 2.8 - 3.2 mEq/ L Last administered on 11/20/16 07:31; Start 11/03/16 at 05:15; Stop 12/05/16 at 10:20; Status DC Potassium Chloride 100 ml @ 50 mls/hr Q2H PRN IV For Potassium 2.8 - 3.2 mEq/ L Last administered on 11/29/16 06:01; Start 11/03/16 at 05:15; Stop 12/05/16 at 10:20; Status DC Potassium Bicarb/ Potassium Chloride (K-Lyte Cl Eff) 50 meq UNSCH PRN PO For Potassium 3.3 - 3.5 mEq/L Last administered on 11/22/16 07:07; Start 11/03/16 at 05:15; Stop 12/05/16 at 10:21; Status DC Potassium Chloride 100 ml @ 25 mls/hr UNSCH PRN IV For Potassium 3.3 - 3.5 mEq /L Last administered on 11/19/16 01:44; Start 11/03/16 at 05:15; Stop 12/05/16 at 10:21; Status DC Potassium Chloride 100 ml @ 50 mls/hr Q2H PRN IV For Potassium 3.3 - 3.5 mEq/ L Last administered on 11/25/16 08:51; Start 11/03/16 at 05:15; Stop 12/05/16 at 10:21; Status DC Magnesium Sulfate 4 gm/Sodium Chloride 100 ml @ 50 mls/hr UNSCH PRN IV For Magnesium 0.9 - 1.1 mg/dL; Start 11/03/16 at 05:15; Stop 12/05/16 at 10:21; Status DC Magnesium Oxide (Mag-Ox) 800 mg UNSCH PRN PO For Magnesium 1.2 - 1.6 mg/dL; Start 11/03/16 at 05:15; Stop 12/05/16 at 10:21; Status DC Magnesium Sulfate 2 gm/Sodium Chloride 100 ml @ 50 mls/hr UNSCH PRN IV For Magnesium 1.2 - 1.6 mg/dL; Start 11/03/16 at 05:15; Stop 12/05/16 at 10:21; Status DC Potassium Phosphate (K-Phos) 2,000 mg Q4H PRN PO For Phosphorus < 2.5 mg/dL; Start 11/03/16 at 05:15; Stop 12/05/16 at 10:22; Status DC Sodium Phosphate 30 mmol/Sodium Chloride 250 ml @ 42 mls/hr UNSCH PRN IV For Phosphorus < 2.5 mg/dL; Start 11/03/16 at 05:15; Stop 12/05/16 at 10:22; Status DC Potassium Phosphate (K-Phos) 2,000 mg UNSCH PRN PO/TUBE SEE LABEL COMMENTS; Start 11/03/16 at 05:15; Stop 12/05/16 at 10:22; Status DC Furosemide (Lasix Inj) 40 mg ONCE ONCE IV PUSH Last administered on 11/03/16 18:16; Start 11/03/16 at 18:15; Stop 11/03/16 at 18:16; Status DC Potassium Chloride 30 meq/ Sodium Chloride 115 ml @ 38.333 mls/ hr Q3H IV- CENTRAL Last administered on 11/03/16 22:53; Start 11/03/16 at 20:00; Stop at 01:59; Status DC Labetalol HCl (Trandate) 100 mg Q8H PO Last administered on 04/17/17 12:32; Start 11/03/16 at 20:00 Hydralazine HCl (Apresoline) 50 mg Q12HR PO Last administered on 12/19/16 09: 01; Start 11/03/16 at 19:00; Stop 12/19/16 at 15:24; Status DC Amlodipine Besylate (Norvasc) 5 mg DAILY PO Last administered on 04/17/17 09: 11; Start 11/04/16 at 09:00 Nystatin (Mycostatin Powder) 1 applic TID TOPICAL Last administered on 18:00; Start 11/06/16 at 09:00; Stop 02/12/17 at 09:42; Status DC Lactobacillus Acidophilus (Lactinex) 1 tab Q12HR PO Last administered on 09:17; Start 11/06/16 at 21:00; Stop 02/07/17 at 10:54; Status DC Quetiapine Fumarate (SEROquel) 25 mg BID@,12 PO Last administered on 09:19; Start 11/07/16 at 09:00; Stop 01/30/17 at 11:56; Status DC Multi-Ingredient Mouthwash/Gargle (Magic Mouthwash Adult Liq) 5 ml QID SWISH- SWAL Last administered on 11/16/16 13:00; Start 11/06/16 at 18:00; Stop at 17:59; Status DC Docusate Sodium (Colace Liq) 100 mg Q12H PRN G-TUBE constipation Last administered on 12/11/16 21:59; Start 11/06/16 at 17:00; Stop 02/12/17 at 00:02 ; Status DC Potassium Bicarbonate (Effer-K Eff) 25 meq DAILY PO Last administered on 09:00; Start 11/06/16 at 17:00; Stop 11/09/16 at 16:59; Status DC Diphenhydramine HCl (Benadryl Inj) 25 mg ONCE ONCE IV PUSH Last administered on 11/08/16 01:55; Start 11/08/16 at 01:45; Stop 11/08/16 at 01:46; Status DC Loperamide HCl (Imodium) 2 mg UNSCH PRN PO DIARRHEA Last administered on 12:57; Start 11/09/16 at 09:45 Diphenoxylate HCl/ Atropine (Lomotil Tab) 1 tab Q6H PRN PO severe diarrhea ; Start 11/09/16 at 09:45 Metronidazole (Flagyl) 500 mg Q8H PO Last administered on 11/30/16 09:28; Start 11/09/16 at 16:00; Stop 11/30/16 at 14:47; Status DC Thrombin (Thrombin Top Soln) 10,000 units STK-MED ONCE .ROUTE ; Start 11/10/16 at 08:31; Stop 11/10/16 at 08:32; Status DC Gelatin (Gelfoam 100 Top) 1 foam STK-MED ONCE .ROUTE ; Start 11/10/16 at 08:31; Stop 11/10/16 at 08:32; Status DC Potassium Bicarb/ Potassium Chloride (K-Lyte Cl Eff) 50 meq NOW ONCE NG Last administered on 11/15/16 20:42; Start 11/15/16 at 20:45; Stop 11/15/16 at 20:46 ; Status DC Potassium Chloride 100 ml @ 25 mls/hr Q4H IV Last administered on 11/16/16 01 :13; Start 11/15/16 at 21:00; Stop 11/16/16 at 04:59; Status DC Sodium Chloride (Sodium Chloride) 2 gm Q8HR PO Last administered on 11/21/16 13:21; Start 11/16/16 at 14:00; Stop 11/21/16 at 17:30; Status DC Diphenhydramine HCl (Benadryl Inj) 50 mg Q6H PRN IV ITCHING Last administered on 11/29/16 23:29; Start 11/16/16 at 23:00; Stop 12/20/16 at 17:44; Status DC Diphenhydramine HCl (Benadryl Inj) 50 mg STK-MED ONCE .ROUTE ; Start 11/16/16 at 22:55; Stop 11/16/16 at 22:56; Status DC Quetiapine Fumarate (SEROquel) 25 mg HS PO Last administered on 01/17/17 22:26 ; Start 11/20/16 at 21:00; Stop 01/19/17 at 12:17; Status DC Sodium Chloride (Sodium Chloride) 2 gm BID PO Last administered on 11/23/16 07 :28; Start 11/22/16 at 09:00; Stop 11/23/16 at 11:40; Status DC Potassium Chloride (KCl) 20 meq BID PO Last administered on 11/24/16 20:18; Start 11/23/16 at 09:00; Stop 11/25/16 at 14:47; Status DC Sodium Chloride (Sodium Chloride) 2 gm DAILY PO Last administered on 12/19/16 09:00; Start 11/24/16 at 09:00; Stop 12/19/16 at 15:24; Status DC Thrombin (Thrombin Top Soln) 10,000 units STK-MED ONCE .ROUTE Last administered on 11/24/16 15:50; Start 11/24/16 at 07:55; Stop 11/24/16 at 07:56 ; Status DC Gelatin (Gelfoam 100 Top) 1 foam STK-MED ONCE .ROUTE Last administered on 15:50; Start 11/24/16 at 07:56; Stop 11/24/16 at 07:57; Status DC Lidocaine/ Epinephrine (Xylocaine-Epi 1%-1:100,000 Inj) 50 ml STK-MED ONCE .ROUTE Last administered on 11/24/16 15:50; Start 11/24/16 at 07:56; Stop at 07:57; Status DC Gentamicin Sulfate (Gentamicin Inj) 240 mg STK-MED ONCE .ROUTE Last administered on 11/24/16 15:50; Start 11/24/16 at 07:56; Stop 11/24/16 at 07:57 ; Status DC Vancomycin HCl (Vancomycin Inj) 1,000 mg STK-MED ONCE .ROUTE Last administered on 11/24/16 15:40; Start 11/24/16 at 14:41; Stop 11/24/16 at 14:42; Status DC Sodium Chloride 250 ml @ As Directed STK-MED ONCE .ROUTE ; Start 11/24/16 at 14 :41; Stop 11/24/16 at 14:42; Status DC Fentanyl Citrate (fentaNYL INJ) 250 mcg STK-MED ONCE .ROUTE ; Start 11/24/16 at 17:28; Stop 11/24/16 at 17:29; Status DC Potassium Chloride/Sodium Chloride 1,000 ml @ 84 mls/hr [id number] IV Last administered on 11/24/16 20:52; Start 11/24/16 at 17:45; Stop 11/24/16 at 23:44 ; Status DC Miscellaneous Information ALL NURSING DEPARTME... UNSCH PRN .XX SEE LABEL COMMENTS; Start 11/24/16 at 18:15; Stop 11/25/16 at 18:14; Status DC Potassium Bicarb/ Potassium Chloride (K-Lyte Cl Eff) 25 meq Q12HR NG Last administered on 12/12/16 22:08; Start 11/25/16 at 21:00; Stop 12/13/16 at 08:26 ; Status DC Propofol (Diprivan 200 Mg/20 ml Inj) 200 mg STK-MED ONCE IV ; Start 11/24/16 at 14:31; Stop 11/29/16 at 14:34; Status DC Ephedrine Sulfate (ePHEDrine/NS 25 MG/5 ML SYR) 25 mg STK-MED ONCE IV ; Start at 14:31; Stop 11/29/16 at 14:34; Status DC Neostigmine Methylsulfate (Prostigmin Inj) 3 mg STK-MED ONCE IV ; Start at 14:31; Stop 11/29/16 at 14:34; Status DC Phenylephrine HCl (Neosynephrine/ NS 1000 Mcg/10ml Syr) 2,000 mcg STK-MED ONCE IV ; Start 11/24/16 at 14:31; Stop 11/29/16 at 14:34; Status DC Ondansetron HCl (Zofran Inj) 4 mg STK-MED ONCE IV PUSH ; Start 11/24/16 at 14:31 ; Stop 11/29/16 at 14:34; Status DC Vasopressin (Pitressin Inj) 20 units STK-MED ONCE IV ; Start 11/24/16 at 14:31; Stop 11/29/16 at 14:34; Status DC Potassium Bicarb/ Potassium Chloride (K-Lyte Cl Eff) 25 meq ONCE ONCE PO Last administered on 12/08/16 10:10; Start 12/08/16 at 08:00; Stop 12/08/16 at 08: 06; Status DC Lactulose (Lactulose Liq) 30 ml QID PRN PO high ammonia level; Start 12/09/16 at 13:45 Potassium Chloride (KCl) 20 meq ONCE ONCE PO Last administered on 12/12/16 13 :40; Start 12/12/16 at 12:30; Stop 12/12/16 at 12:31; Status DC Potassium Bicarb/ Potassium Chloride (K-Lyte Cl Eff) 50 meq Q12HR NG Last administered on 02/11/17 20:53; Start 12/13/16 at 09:00; Stop 02/12/17 at 00:03 ; Status DC Potassium Chloride (KCl) 30 meq ONCE ONCE PO Last administered on 12/14/16 08 :36; Start 12/14/16 at 07:45; Stop 12/14/16 at 07:52; Status DC Pantoprazole Sodium (Protonix) 40 mg DAILY PO Last administered on 04/17/17 09:12; Start 12/16/16 at 09:00 Fludrocortisone Acetate (Florinef) 0.2 mg DAILY PO Last administered on 08:51; Start 12/20/16 at 09:00; Stop 01/13/17 at 18:35; Status DC Diphenhydramine HCl (Benadryl) 50 mg Q6H PRN PO Itchiness. Last administered on 04/13/17 21:20; Start 12/20/16 at 17:45 Haloperidol Lactate (Haldol Inj) 5 mg ONCE ONCE IM Last administered on 22:52; Start 12/22/16 at 22:30; Stop 12/22/16 at 22:48; Status DC Fludrocortisone Acetate (Florinef) 0.2 mg Q48H PO Last administered on 08:15; Start 01/15/17 at 09:00; Stop 01/25/17 at 07:37; Status DC Quetiapine Fumarate (SEROquel) 50 mg HS PO Last administered on 01/29/17 20:15 ; Start 01/19/17 at 21:00; Stop 01/30/17 at 11:56; Status DC Haloperidol Lactate (Haldol Inj) 5 mg ONCE ONCE IM Last administered on 22:05; Start 01/19/17 at 22:00; Stop 01/19/17 at 22:01; Status DC Quetiapine Fumarate (SEROquel) 100 mg BID@,12 PO Last administered on 12:38; Start 01/30/17 at 12:00; Stop 02/23/17 at 12:59; Status DC Lactobacillus Acidophilus (Lactinex) 1 tab DAILY PO Last administered on 09:07; Start 02/08/17 at 09:00; Stop 02/12/17 at 07:39; Status DC Docusate Sodium (Colace) 100 mg Q12H PRN PO CONSTIPATION; Start 02/12/17 at 00: 15 Potassium Bicarb/ Potassium Chloride (K-Lyte Cl Eff) 50 meq Q12HR PO ; Start at 09:00; Stop 02/12/17 at 09:44; Status DC Albuterol/ Ipratropium (Duoneb Neb) 1 ampule Q4HR NEB PRN INH WHEEZING; Start 02/12/17 at 12:00 Potassium Chloride (KCl) 40 meq DAILY PO Last administered on 04/17/17 09:10 ; Start 02/13/17 at 09:00 Senna/Docusate Sodium (Tonie-Colace) 1 tab BID PO Last administered on 09:11; Start 02/18/17 at 09:30 Quetiapine Fumarate (SEROquel) 200 mg BID@,12 PO Last administered on 12:32; Start 02/24/17 at 09:00 Haloperidol Lactate (Haldol Inj) 2 mg ONCE ONCE IM Last administered on 03:15; Start 02/27/17 at 03:15; Stop 02/27/17 at 03:16; Status DC Lactulose (Lactulose Liq) 30 ml DAILY PO Last administered on 04/17/17 09:12 ; Start 03/16/17 at 10:45 Haloperidol Lactate (Haldol Inj) 2 mg ONCE ONCE IM Last administered on 22:08; Start 03/18/17 at 20:00; Stop 03/18/17 at 20:01; Status DC Urinary Catheter: No Vascular Central Line Catheter: No A/P Problem List: (1) 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 ICD Code: I60.8 - Other nontraumatic subarachnoid hemorrhage Status: Acute (2) Hypertension ICD Code: I10 - Essential (primary) hypertension Status: Chronic (3) Major neurocognitive disorder due to vascular disease, without behavioral disturbance, severe ICD Code: F01.50 - Vascular dementia without behavioral disturbance Status: Acute (4) Intracranial hemorrhage ICD Code: I62.9 - Nontraumatic intracranial hemorrhage, unspecified Status: Resolved (5) Major neurocognitive disorder as late effect of traumatic brain injury with behavioral disturbance ICD Code: S06.9X9S - Unspecified intracranial injury with loss of consciousness of unspecified duration, sequela; F02.81 - Dementia in other diseases classified elsewhere with behavioral disturbance Status: Acute (6) Encephalopathy ICD Code: G93.40 - Encephalopathy, unspecified Status: Acute (7) Acute respiratory failure with hypoxia and hypercarbia ICD Code: J96.01 - Acute respiratory failure with hypoxia; J96.02 - Acute respiratory failure with hypercapnia Status: Acute Assessment and Plan Mr. Nunez is a 51 year old male who was brought to the hospital as a trauma alert due to head injury after he fell in the bathroom and hit his head. Patient was unresponsive for approximately 15 minutes by the time ambulance services arrived. His mentation waxed and waned with GCS ranging from [address] head indicated subarachnoid hemorrhage, acute. 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 Neuropsychology following patient ultimately for discharge placement and assistance with recommendations. Per neuropsychology note, ongoing areas of concern include behavioral impulsivity, lack of insight and judgement. - Speech therapy recommends regular diet with thin liquids. Patient is eating well. PEG dc'd 01/08/17. - Continue Seroquel 100mg BID per psychiatry HTN - controlled - continue on Norvasc 5mg daily and Labetalol 100mg q8h Acute hypoxic hypercarbic respiratory failure, resolved - Tracheostomy 10/23/16, removed, old trach site healed. - Monitor respiratory status - stable on RA C. difficile colitis, resolved - Completed Flagyl on 10/23 - No diarrhea reported - off Lactinex RENAL INSUFFICIENCY APPEARS CHRONIC NOW DVT prophylaxis: SCDs, YOUSIF hose, Lovenox. Ambulation. GI prophylaxis: Protonix. Discussed with patient asked to increase water intake. AWAIT SAFE PLACEMENT Discharge Planning AWAIT SAFE PLACEMENT Problem Qualifiers (1) Hypertension: Christian Cain DO Apr 17, 2017 12:58
[2017-04-17 16:08] VITALS: BP 133/91; PULSE 101; RESP 20; TEMP 98.1; O2SAT 94
[2017-04-17 20:00] VITALS: BP 120/71; PULSE 92; RESP 18; TEMP 97.5; O2SAT 90
[2017-04-17] MEDS: ENOXAPARIN SODIUM 40 MG/0.4 ML SYRINGE SQ SCH (23:04)
[2017-04-18 04:00] VITALS: BP 137/84; PULSE 89; RESP 18; TEMP 98; O2SAT 94
[2017-04-18] MEDS: LABETALOL HCL 100 MG TAB PO SCH ×3 (04:57→20:33)
[2017-04-18 08:37] VITALS: BP 131/74; PULSE 73; RESP 20; TEMP 97.9; O2SAT 94
[2017-04-18] MEDS: POTASSIUM CHLORIDE 20 MEQ CONTROLLED RELEASE TAB PO SCH (09:59)
[2017-04-18] MEDS: amLODIPine BESYLATE 5 MG TAB PO SCH (09:59)
[2017-04-18] MEDS: PANTOPRAZOLE SOD 40 MG DELAYED RELEASE TAB PO SCH (10:00)
[2017-04-18] MEDS: QUEtiapine FUMARATE 100 MG TAB PO SCH ×2 (10:00→14:11)
[2017-04-18] MEDS: LACTULOSE SYRUP 20 GM/30 ML CUP PO SCH (10:00)
[2017-04-18] MEDS: DOCUSATE SODIUM 50 MG/SENNA 8.6 MG TAB PO SCH ×2 (10:00→20:33)
[2017-04-18] MEDS: PRAVASTATIN SOD 40 MG TAB PO SCH (10:00)
[2017-04-18 12:26] VITALS: BP 121/76; PULSE 97; RESP 20; TEMP 97.6; O2SAT 97
--- NOTE | 2017-04-18 13:26 | HHI.PR ---
Subjective Remarks NO NEW COMPLAINTS STILL AWAITS SAFE PLACEMENT DW RN AND PT TOLERATING A DIET LISTENING TO TELEVISION 04-17 patient is SITTING ON SIDE OF BED NO SOB, NO CHEST PAIN, NO PALPITATIONS HAVING BOWEL MOVEMENTS DW RN AND PT 04-18 SISTER IS PLANNING TO SHAVE HIM TODAY NO NEW COMPLAINTS NO SOB, NO CHEST PAIN DW PT AND RN Objective Vitals Vital Signs Date Time Temp Pulse Resp B/P (MAP) Pulse Ox O2 Delivery O2 Flow Rate FiO2 04/18/17 12:26 97.6 97 20 121/76 (91) 97 04/18/17 08:37 97.9 73 20 131/74 (93) 94 04/18/17 04:00 98.0 89 18 137/84 (101) 94 04/17/17 20:00 97.5 92 18 120/71 (87) 90 04/17/17 16:08 98.1 101 20 133/91 (105) 94 I/O 04/17/17 04/17/17 04/17/17 04/18/17 04/18/17 04/18/17 07:00 15:00 23:00 07:00 15:00 23:00 Intake Total 840 ml Balance 840 ml Intake Oral 840 ml # Voids 4 5 4 # Bowel Movements 1 2 1 Result Diagram: 04/15/17 1026 Imaging Last Impressions Chest X-Ray 02/18/17 0000 Signed Impressions: Service Date/Time: Saturday, February 18, 2017 10:51 - CONCLUSION: Diminished lung volumes. No infiltrate. Tyrese Raymond MD Abdomen X-Ray 02/18/17 0000 Signed Impressions: Service Date/Time: Saturday, February 18, 2017 10:56 - CONCLUSION: Unremarkable abdomen. Tyrese Raymond MD Gall Bladder Ultrasound 02/17/17 0000 Signed Impressions: Service Date/Time: Friday, February 17, 2017 17:45 - CONCLUSION: Mildly enlarged liver and small amount of gallbladder sludge. iTm Hammonds MD Head CT 12/09/16 0000 Signed Impressions: Service Date/Time: Friday, December 09, 2016 17:36 - CONCLUSION: 1. Right ventriculostomy tube remains in place with decrease in ventricular size since November 24. There is some encephalomalacia around the shunt and a probable small infarct in the left basal ganglia. No new hemorrhage or shift. Tip Harris MD Transcranial Doppler Study Complete 10/26/16 0700 Signed Impressions: Service Date/Time: Wednesday, October 26, 2016 08:20 - CONCLUSION: Minimal interval improvement with no evidence for vasospasm. Christian Song MD FACR Neck CTA 10/19/16 0000 Signed Impressions: Service Date/Time: Wednesday, October 19, 2016 14:19 - CONCLUSION: Negative for dissection or significant stenosis. Christian Song MD FACR Head CTA 10/19/16 0000 Signed Impressions: Service Date/Time: Wednesday, October 19, 2016 14:19 - CONCLUSION: 1. Interval development of significant vasospasm in the left MCA and SRI territories. 2. Mild vasospasm in the basilar artery.. Gume Mckeon MD Cerebral Arteriogram 10/19/16 0000 Signed Impressions: Service Date/Time: Wednesday, October 19, 2016 16:06 - CONCLUSION: 1. Vasospasm in the left MCA and SRI territories 2. Spasmolytic infusion, left internal carotid artery as above.. 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 Gume Mckeon MD Pelvis X-Ray 10/05/16109 Signed Impressions: Service Date/Time: Wednesday, October 05, 2016 01:22 - CONCLUSION: Unremarkable examination of the pelvis. Ruben Acuña Jr., MD Chest CT 10/05/16109 Signed Impressions: Service Date/Time: Wednesday, October 05, 2016 01:46 - CONCLUSION: 1. No acute intrathoracic abnormality. 2. Bibasilar atelectasis. 3. Cardiomegaly. 4. Prior granulomatous disease. Ruben Acuña Jr., MD Cervical Spine CT 10/05/16109 Signed Impressions: Service Date/Time: Wednesday, October 05, 2016 01:40 - CONCLUSION: 1. No fracture or dislocation. 2. Multilevel degenerative changes. Ruben Acuña Jr., MD Abdomen/Pelvis CT 10/05/16109 Signed Impressions: Service Date/Time: Wednesday, October 05, 2016 01:46 - CONCLUSION: 1. No acute trauma. 2. Rounded area of decreased density involving the pancreatic head. I cannot completely exclude pancreatic head mass. At some point MRI of the pancreas is suggested to further evaluate. 3. Focal area of poor enhancement involving the left kidney. This may relate to an area of parenchymal scarring. I cannot completely exclude a mass. This can be further assessed with MRI as well. Ruben Acuña Jr., MD Objective Remarks GENERAL: AWAKE AND ALERT SKIN: Warm and dry. HEAD: Atraumatic. Normocephalic. EYES: Pupils equal and round. No scleral icterus. No injection or drainage. BLINDNESS-SEES SHADOWS ENT: No nasal bleeding or discharge. Mucous membranes pink and moist.TONGUE MIDLINE NECK: Trachea midline. No JVD. SUPPLE CARDIOVASCULAR: Regular rate and rhythm. S1, S2 NO S3 OR S4 RESPIRATORY: No accessory muscle use. Clear to auscultation. Breath sounds equal bilaterally. GASTROINTESTINAL: Abdomen soft, non-tender, nondistended. Hepatic and splenic margins not palpable. MUSCULOSKELETAL: Extremities without clubbing, cyanosis, or edema. No obvious deformities. NEUROLOGICAL: Awake and alert. No obvious cranial nerve deficits. Motor grossly within normal limits. 4 out of 5 muscle strength in the arms and legs. Normal speech. PSYCHIATRIC: INAppropriate mood and affect; insight and judgment ABnormal. Procedures 10/05/16 right frontal twist drill for ventriculostomy placement 10/20/16 arterial line placement 10/23/16 bedside percutaneous tracheostomy under direct bronchoscopic visualization 10/24/16 PEG tube placement at bedside Medications and IVs Current Medications Propofol 100 ml @ As Directed STK-MED ONCE .ROUTE ; Start 10/05/16 at 01:16; Stop 10/05/16 at 01:17; Status DC Cefazolin Sodium/ Dextrose 50 ml @ As Directed STK-MED ONCE .ROUTE ; Start at 01:23; Stop 10/05/16 at 01:24; Status DC Cefazolin Sodium/ Dextrose 50 ml @ 100 mls/hr ONCE STAT IV ; Start 10/05/16 at 01:26; Stop 10/05/16 at 01:55; Status DC Diphtheria/ Tetanus/Acell Pertussis (Boostrix Inj) 0.5 ml ONCE ONCE IM ; Start 10/05/16 at 01:26; Stop 10/05/16 at 01:28; Status DC Nicardipine HCl (Cardene Inj) 25 mg STK-MED ONCE .ROUTE ; Start 10/05/16 at 01:26 ; Stop 10/05/16 at 01:27; Status DC Nicardipine HCl (Cardene Inj) 25 mg STK-MED ONCE .ROUTE ; Start 10/05/16 at 01:27 ; Stop 10/05/16 at 01:28; Status DC Sodium Chloride 1,000 ml @ 0 mls/hr Q0M IV ; Start 10/05/16 at 01:30; Stop at 02:57; Status DC Nicardipine HCl 25 mg/Sodium Chloride 260 ml @ 0 mls/hr TITRATE ONCE IV Last administered on 10/05/16 02:00; Start 10/05/16 at 02:00; Stop 10/05/16 at 02:01; Status DC Iohexol (Omnipaque 350 Inj) 97 ml STK-MED ONCE IV Last administered on 02:11; Start 10/05/16 at 02:11; Stop 10/05/16 at 02:12; Status DC Etomidate (Amidate Inj) 20 mg STK-MED ONCE .ROUTE ; Start 10/05/16 at 02:13; Stop 10/05/16 at 02:14; Status DC Epinephrine HCl (EPINEPHrine (1:10,000) INJ) 1 mg STK-MED ONCE .ROUTE ; Start at 02:32; Stop 10/05/16 at 02:33; Status DC Atropine Sulfate (Atropine Inj) 1 mg STK-MED ONCE .ROUTE ; Start 10/05/16 at 02: 33; Stop 10/05/16 at 02:34; Status DC Lidocaine HCl (Xylocaine 2% Inj) 100 mg STK-MED ONCE .ROUTE ; Start 10/05/16 at 02:33; Stop 10/05/16 at 02:34; Status DC Sodium Chloride 1,000 ml @ 84 mls/hr [id number] IV Last administered on 23:55; Start 10/05/16 at 02:31; Stop 10/15/16 at 22:17; Status DC Acetaminophen (Tylenol) 650 mg Q6H PRN PO PAIN 1-10 AND/OR FEVER >101F Last administered on 04/04/17 20:54; Start 10/05/16 at 02:45 Morphine Sulfate (Morphine Inj) 2 mg Q2H PRN IV PAIN SCALE 6 TO 10 Last administered on 10/15/16 19:04; Start 10/05/16 at 02:45; Stop 10/22/16 at 06:04 ; Status DC Pantoprazole Sodium (Protonix Inj) 40 mg DAILY IV Last administered on 08:37; Start 10/05/16 at 09:00; Stop 12/15/16 at 12:50; Status DC Lorazepam (Ativan Inj) 2 mg Q4H PRN IV Agitation/Sedation Last administered on 10/11/16 12:27; Start 10/05/16 at 02:45; Stop 10/18/16 at 14:41; Status DC Artificial Tears (Tears Naturale Opth Soln) 1 drop TID EACH EYE Last administered on 02/11/17 18:00; Start 10/05/16 at 09:00; Stop 02/12/17 at 09:41 ; Status DC Ondansetron HCl (Zofran Inj) 4 mg Q6H PRN IV NAUSEA OR VOMITING Last administered on 11/27/16 23:26; Start 10/05/16 at 02:45 Metoclopramide HCl (Reglan Inj) 10 mg Q6H PRN IV NAUSEA OR VOMITING Last administered on 10/13/16 09:48; Start 10/05/16 at 02:45; Stop 10/19/16 at 07:38 ; Status DC Docusate Sodium (Colace) 100 mg Q12H G-TUBE Last administered on 10/30/16 05: 12; Start 10/05/16 at 04:00; Stop 10/31/16 at 16:41; Status DC Albuterol/ Ipratropium (Duoneb Neb) 1 ampule Q2HR NEB PRN INH WHEEZING Last administered on 10/31/16 13:41; Start 10/05/16 at 02:45; Stop 02/12/17 at 09:42; Status DC Miscellaneous Information 1 [id number] Last administered on 10/05/16 02:45; Start 10/05/16 at 02:45 Chlorhexidine Gluconate (Chlorhexidine 2% Cloth) Taper DAILY@04 TOP Last administered on 01/02/17 04:00; Start 10/05/16 at 04:00; Stop 02/12/17 at 09:41; Status DC Chlorhexidine Gluconate (Chlorhexidine 2% Cloth) 3 pack UNSCH PRN TOP HYGIENIC CARE; Start 10/05/16 at 02:45; Stop 02/12/17 at 09:41; Status DC Propofol 100 ml @ 0 mls/hr TITRATE IV Last administered on 10/13/16 16:58; Start 10/05/16 at 02:45; Stop 10/18/16 at 14:41; Status DC Nimodipine (Nimotop) 60 mg Q4HR PO ; Start 10/05/16 at 04:00; Stop 10/05/16 at 04: 00; Status DC Potassium Chloride/Sodium Chloride 1,000 ml @ 100 mls/hr Q10H IV ; Start at 02:15; Stop 10/05/16 at 02:56; Status DC Levetriacetam 500 mg/Sodium Chloride 105 ml @ 420 mls/hr Q12HR IV Last administered on 11/26/16 20:08; Start 10/05/16 at 09:00; Stop 11/26/16 at 22:02 ; Status DC Nicardipine HCl 25 mg/Sodium Chloride 260 ml @ 0 mls/hr TITRATE IV Last administered on 10/18/16 11:23; Start 10/05/16 at 02:45; Stop 11/05/16 at 13:47; Status DC Labetalol HCl (Trandate Inj) 10 mg Q4H PRN IV PUSH SBP>140, DBP>90 Last administered on 11/03/16 05:45; Start 10/05/16 at 02:45; Stop 11/05/16 at 13:47; Status DC Nimodipine (Nimotop) 60 mg Q4HR PO Last administered on 10/17/16 07:16; Start 10/05/16 at 04:00; Stop 10/17/16 at 10:55; Status DC Pravastatin Sodium (Pravachol) 40 mg DAILY PO Last administered on 04/18/17 10:00; Start 10/05/16 at 09:00 Iohexol (Omnipaque 350 Inj) 75 ml STK-MED ONCE IV Last administered on 04:15; Start 10/05/16 at 04:15; Stop 10/05/16 at 04:16; Status DC Verapamil HCl (Isoptin Inj) 10 mg STK-MED ONCE .ROUTE Last administered on 13:04; Start 10/05/16 at 13:04; Stop 10/05/16 at 13:05; Status DC Heparin Sodium (Porcine) (*HEPARIN INJ Periprocedural ONLY) 10,000 units STK- MED ONCE .ROUTE Last administered on 10/05/16 14:16; Start 10/05/16 at 15:05; Stop 10/05/16 at 15:06; Status DC Iodixanol (Visipaque 320 Inj) 120 ml STK-MED ONCE I-ARTERIAL Last administered on 10/05/16 16:18; Start 10/05/16 at 16:18; Stop 10/05/16 at 16:19; Status DC Fentanyl Citrate (fentaNYL INJ) 100 mcg STK-MED ONCE .ROUTE ; Start 10/05/16 at 16:49; Stop 10/05/16 at 16:50; Status DC Fentanyl Citrate 250 ml @ 0 mls/hr TITRATE IV Last administered on 10/17/16 00 :29; Start 10/05/16 at 22:15; Stop 10/17/16 at 11:30; Status DC Norepinephrine Bitartrate (Levophed Inj) 4 mg STK-MED ONCE .ROUTE ; Start at 04:03; Stop 10/06/16 at 04:04; Status DC Sodium Chloride 999 ml @ 0 mls/hr BOLUS ONCE IV Last administered on 10/06/16 06:38; Start 10/06/16 at 06:45; Stop 10/06/16 at 06:46; Status DC Sodium Chloride (NS Flush) See Protocol DAILY IV FLUSH Last administered on 12/05 09:00; Start 10/07/16 at 09:00; Stop 12/05/16 at 10:21; Status DC Sodium Chloride (NS Flush) See Protocol UNSCH PRN IV FLUSH SEE PROTOCOL TABLE; Start 10/06/16 at 12:00; Stop 12/05/16 at 10:21; Status DC Heparin Sodium (Porcine) (Heparin Central Flush) See Protocol DAILY IV FLUSH Last administered on 10/13/16 09:00; Start 10/07/16 at 09:00; Stop 10/18/16 at 14:41; Status DC Heparin Sodium (Porcine) (Heparin Central Flush) See Protocol UNSCH PRN IV FLUSH SEE PROTOCOL TABLE Last administered on 10/11/16 08:00; Start 10/06/16 at 12:00; Stop 10/18/16 at 14:41; Status DC Sodium Chloride (NS Flush) UNSCH PRN IV FLUSH SEE PROTOCOL TABLE Last administered on 11/21/16 19:37; Start 10/06/16 at 12:00; Stop 12/05/16 at 10:21; Status DC Norepinephrine Bitartrate (Levophed Inj) 4 mg STK-MED ONCE .ROUTE ; Start at 17:30; Stop 10/06/16 at 17:31; Status DC Norepinephrine Bitartrate 4 mg/ Sodium Chloride 254 ml @ 0 mls/hr TITRATE IV Last administered on 10/28/16 20:14; Start 10/06/16 at 18:00; Stop 11/26/16 at 22:03; Status DC Potassium Chloride 100 ml @ 50 mls/hr Q2H PRN IV For Potassium 2.8 - 3.2 mEq/L ; Start 10/07/16 at 08:00; Stop 10/12/16 at 13:11; Status DC Potassium Chloride 100 ml @ 50 mls/hr Q2H PRN IV For Potassium 2.8 - 3.2 mEq/L ; Start 10/07/16 at 08:00; Stop 10/12/16 at 13:11; Status DC Potassium Chloride 100 ml @ 25 mls/hr UNSCH PRN IV For Potassium 3.3 - 3.5 mEq /L Last administered on 10/07/16 15:56; Start 10/07/16 at 08:00; Stop 10/12/16 at 13:11; Status DC Potassium Chloride 100 ml @ 50 mls/hr Q2H PRN IV For Potassium 3.3 - 3.5 mEq/ L Last administered on 10/11/16 07:41; Start 10/07/16 at 08:00; Stop 10/12/16 at 13:11; Status DC Magnesium Sulfate 4 gm/Sodium Chloride 100 ml @ 50 mls/hr UNSCH PRN IV For Magnesium 0.9 - 1.1 mg/dL; Start 10/07/16 at 08:00; Stop 10/12/16 at 13:11; Status DC Magnesium Oxide (Mag-Ox) 800 mg UNSCH PRN PO For Magnesium 1.2 - 1.6 mg/dL; Start 10/07/16 at 08:00; Stop 10/12/16 at 13:11; Status DC Magnesium Sulfate 2 gm/Sodium Chloride 100 ml @ 50 mls/hr UNSCH PRN IV For Magnesium 1.2 - 1.6 mg/dL; Start 10/07/16 at 08:00; Stop 10/12/16 at 13:11; Status DC Potassium Phosphate (K-Phos) 2,000 mg Q4H PRN PO For Phosphorus < 2.5 mg/dL; Start 10/07/16 at 08:00; Stop 10/12/16 at 13:11; Status DC Sodium Phosphate 30 mmol/Sodium Chloride 250 ml @ 42 mls/hr UNSCH PRN IV For Phosphorus < 2.5 mg/dL; Start 10/07/16 at 08:00; Stop 10/12/16 at 13:11; Status DC Potassium Phosphate (K-Phos) 2,000 mg UNSCH PRN PO/TUBE SEE LABEL COMMENTS Last administered on 10/07/16 15:56; Start 10/07/16 at 08:00; Stop 10/12/16 at 13 :11; Status DC Potassium Phosphate 30 mmol/ Sodium Chloride 260 ml @ 42 mls/hr UNSCH PRN IV SEE LABEL COMMENTS Last administered on 10/08/16 11:23; Start 10/07/16 at 08:00; Stop 10/12/16 at 13:11; Status DC Clonidine (Catapres) 0.1 mg Q8H PRN NG SBP>170, DBP>90 Last administered on 00:28; Start 10/09/16 at 16:15; Stop 10/18/16 at 14:41; Status DC Polyethylene Glycol (Miralax) 17 gm DAILY PO Last administered on 10/28/16 09: 09; Start 10/10/16 at 14:00; Stop 10/30/16 at 15:12; Status DC Lactulose (Lactulose Liq) 30 ml DAILY PO Last administered on 10/28/16 09:09; Start 10/10/16 at 14:00; Stop 10/30/16 at 15:12; Status DC Metoprolol Tartrate (Lopressor) 25 mg Q6H PO Last administered on 10/18/16 09: 36; Start 10/10/16 at 14:00; Stop 10/18/16 at 14:41; Status DC Labetalol HCl 500 mg/Sodium Chloride 250 ml @ 0 mls/hr TITRATE IV ; Start at 17:00; Stop 10/18/16 at 14:41; Status DC Sodium Chloride 250 ml @ As Directed STK-MED ONCE .ROUTE ; Start 10/11/16 at 02 :29; Stop 10/11/16 at 02:30; Status DC Nicardipine HCl (Cardene Inj) 25 mg STK-MED ONCE .ROUTE ; Start 10/11/16 at 02: 29; Stop 10/11/16 at 02:30; Status DC Tamsulosin HCl (Flomax) 0.4 mg Q12HR PO Last administered on 10/17/16 07:16; Start 10/11/16 at 09:00; Stop 10/18/16 at 14:41; Status DC Epinephrine HCl (EPINEPHrine (1:10,000) INJ) 1 mg STK-MED ONCE .ROUTE ; Start at 09:51; Stop 10/11/16 at 09:52; Status DC Atropine Sulfate (Atropine Inj) 1 mg STK-MED ONCE .ROUTE ; Start 10/11/16 at 09: 51; Stop 10/11/16 at 09:52; Status DC Lidocaine HCl (Xylocaine 2% Inj) 100 mg STK-MED ONCE .ROUTE ; Start 10/11/16 at 09:51; Stop 10/11/16 at 09:52; Status DC Iohexol (Omnipaque 350 Inj) 100 ml STK-MED ONCE IV Last administered on 10:56; Start 10/11/16 at 10:56; Stop 10/11/16 at 10:57; Status DC Norepinephrine Bitartrate (Levophed Inj) 4 mg STK-MED ONCE .ROUTE ; Start at 20:25; Stop 10/11/16 at 20:26; Status DC Aztreonam 2000 mg/ Sodium Chloride 100 ml @ 200 mls/hr Q8H IV Last administered on 10/19/16 01:39; Start 10/12/16 at 02:00; Stop 10/19/16 at 07:38 ; Status DC Pharmacy Profile Note 0 ml @ 0 mls/hr UNSCH OTHER ; Start 10/12/16 at 02:15; Stop 10/13/16 at 17:17; Status DC Metronidazole 100 ml @ 100 mls/hr Q6H IV Last administered on 10/19/16 03:33 ; Start 10/12/16 at 03:00; Stop 10/19/16 at 07:39; Status DC Vancomycin HCl 2500 mg/Sodium Chloride 525 ml @ 250 mls/hr ONCE ONCE IV Last administered on 10/12/16 04:00; Start 10/12/16 at 04:00; Stop 10/12/16 at 06:05 ; Status DC Vancomycin HCl 2000 mg/Sodium Chloride 520 ml @ 250 mls/hr ONCE ONCE IV Last administered on 10/13/16 11:30; Start 10/13/16 at 11:00; Stop 10/13/16 at 17:17 ; Status DC Epinephrine HCl (EPINEPHrine (1:10,000) INJ) 1 mg STK-MED ONCE .ROUTE ; Start at 03:26; Stop 10/14/16 at 03:27; Status DC Atropine Sulfate (Atropine Inj) 1 mg STK-MED ONCE .ROUTE ; Start 10/14/16 at 03: 26; Stop 10/14/16 at 03:27; Status DC Lidocaine HCl (Xylocaine 2% Inj) 100 mg STK-MED ONCE .ROUTE ; Start 10/14/16 at 03:27; Stop 10/14/16 at 03:28; Status DC Potassium Chloride 100 ml @ 50 mls/hr Q2H PRN IV For Potassium 2.8 - 3.2 mEq/ L Last administered on 10/30/16 05:12; Start 10/14/16 at 16:00; Stop 10/30/16 at 15:11; Status DC Potassium Chloride 100 ml @ 50 mls/hr Q2H PRN IV For Potassium 2.8 - 3.2 mEq/ L Last administered on 10/30/16 13:40; Start 10/14/16 at 16:00; Stop 10/30/16 at 15:11; Status DC Potassium Bicarb/ Potassium Chloride (K-Lyte Cl Eff) 50 meq UNSCH PRN PO For Potassium 3.3 - 3.5 mEq/L Last administered on 10/30/16 05:12; Start 10/14/16 at 16:00; Stop 10/30/16 at 15:11; Status DC Potassium Chloride 100 ml @ 25 mls/hr UNSCH PRN IV For Potassium 3.3 - 3.5 mEq /L Last administered on 10/18/16 06:50; Start 10/14/16 at 16:00; Stop 10/30/16 at 15:11; Status DC Potassium Chloride 100 ml @ 50 mls/hr Q2H PRN IV For Potassium 3.3 - 3.5 mEq/ L Last administered on 10/27/16 07:41; Start 10/14/16 at 16:00; Stop 10/30/16 at 15:11; Status DC Magnesium Sulfate 4 gm/Sodium Chloride 100 ml @ 50 mls/hr UNSCH PRN IV For Magnesium 0.9 - 1.1 mg/dL; Start 10/14/16 at 16:00; Stop 10/30/16 at 15:11; Status DC Magnesium Oxide (Mag-Ox) 800 mg UNSCH PRN PO For Magnesium 1.2 - 1.6 mg/dL; Start 10/14/16 at 16:00; Stop 10/30/16 at 15:11; Status DC Magnesium Sulfate 2 gm/Sodium Chloride 100 ml @ 50 mls/hr UNSCH PRN IV For Magnesium 1.2 - 1.6 mg/dL; Start 10/14/16 at 16:00; Stop 10/30/16 at 15:11; Status DC Potassium Phosphate (K-Phos) 2,000 mg Q4H PRN PO For Phosphorus < 2.5 mg/dL Last administered on 10/17/16 02:00; Start 10/14/16 at 16:00; Stop 10/30/16 at 15:11; Status DC Sodium Phosphate 30 mmol/Sodium Chloride 250 ml @ 42 mls/hr UNSCH PRN IV For Phosphorus < 2.5 mg/dL Last administered on 10/24/16 20:31; Start 10/14/16 at 16:00; Stop 10/30/16 at 15:11; Status DC Potassium Phosphate (K-Phos) 2,000 mg UNSCH PRN PO/TUBE SEE LABEL COMMENTS Last administered on 10/18/16 06:51; Start 10/14/16 at 16:00; Stop 10/30/16 at 15:11; Status DC Potassium Phosphate 30 mmol/ Sodium Chloride 260 ml @ 42 mls/hr UNSCH PRN IV SEE LABEL COMMENTS; Start 10/14/16 at 16:00; Stop 10/30/16 at 15:11; Status DC Verapamil HCl (Isoptin Inj) 15 mg STK-MED ONCE .ROUTE Last administered on 10/15 12:55; Start 10/15/16 at 12:55; Stop 10/15/16 at 12:56; Status DC Verapamil HCl (Isoptin Inj) 5 mg STK-MED ONCE .ROUTE Last administered on 13:33; Start 10/15/16 at 13:33; Stop 10/15/16 at 13:34; Status DC Iodixanol (Visipaque 320 Inj) 75 ml STK-MED ONCE I-ARTERIAL Last administered on 10/15/16 13:52; Start 10/15/16 at 13:52; Stop 10/15/16 at 13:53; Status DC Sodium Chloride 250 ml @ As Directed STK-MED ONCE .ROUTE ; Start 10/15/16 at 20 :40; Stop 10/15/16 at 20:41; Status DC Nicardipine HCl (Cardene Inj) 25 mg STK-MED ONCE .ROUTE ; Start 10/15/16 at 20: 40; Stop 10/15/16 at 20:41; Status DC Sodium Chloride 250 ml @ As Directed STK-MED ONCE .ROUTE ; Start 10/15/16 at 22 :51; Stop 10/15/16 at 22:52; Status DC Nicardipine HCl (Cardene Inj) 25 mg STK-MED ONCE .ROUTE ; Start 10/15/16 at 22: 51; Stop 10/15/16 at 22:52; Status DC Sodium Chloride 250 ml @ As Directed STK-MED ONCE .ROUTE ; Start 10/16/16 at 01 :03; Stop 10/16/16 at 01:04; Status DC Nicardipine HCl (Cardene Inj) 25 mg STK-MED ONCE .ROUTE ; Start 10/16/16 at 01: 03; Stop 10/16/16 at 01:05; Status DC Sodium Chloride 250 ml @ As Directed STK-MED ONCE .ROUTE ; Start 10/16/16 at 01 :47; Stop 10/16/16 at 01:48; Status DC Nicardipine HCl (Cardene Inj) 25 mg STK-MED ONCE .ROUTE ; Start 10/16/16 at 01: 47; Stop 10/16/16 at 01:48; Status DC Nicardipine HCl (Cardene Inj) 25 mg STK-MED ONCE .ROUTE ; Start 10/16/16 at 03: 51; Stop 10/16/16 at 03:52; Status DC Epinephrine HCl (EPINEPHrine (1:10,000) INJ) 1 mg STK-MED ONCE .ROUTE ; Start at 03:57; Stop 10/16/16 at 03:58; Status DC Atropine Sulfate (Atropine Inj) 1 mg STK-MED ONCE .ROUTE ; Start 10/16/16 at 03: 57; Stop 10/16/16 at 03:58; Status DC Lidocaine HCl (Xylocaine 2% Inj) 100 mg STK-MED ONCE .ROUTE ; Start 10/16/16 at 03:57; Stop 10/16/16 at 03:58; Status DC Diphenhydramine HCl (Benadryl Inj) 25 mg Q6H PRN IV RASH Last administered on 03:12; Start 10/16/16 at 08:15; Stop 10/18/16 at 14:41; Status DC Nimodipine (Nimotop) 30 mg Q2H PO Last administered on 10/26/16 06:53; Start 10/17/16 at 11:00; Stop 10/26/16 at 08:46; Status DC Iohexol (Omnipaque 350 Inj) 70 ml STK-MED ONCE IV Last administered on 14:36; Start 10/19/16 at 14:36; Stop 10/19/16 at 14:37; Status DC Phenylephrine HCl 40 mg/Sodium Chloride 500 ml @ 0 mls/hr TITRATE IV Last administered on 10/20/16 16:29; Start 10/19/16 at 16:30; Stop 10/23/16 at 10:42 ; Status DC Alteplase, Recombinant (Cathflo Activase Inj) 2 mg UNSCH PRN IV FLUSH PICC LINE OCCLUSION Last administered on 11/01/16 21:47; Start 10/19/16 at 16:15; Stop 11/05/16 at 13:47; Status DC Verapamil HCl (Isoptin Inj) 5 mg STK-MED ONCE .ROUTE Last administered on 17:20; Start 10/19/16 at 16:05; Stop 10/19/16 at 16:06; Status DC Midazolam HCl (Versed Inj) 2 mg STK-MED ONCE .ROUTE Last administered on 17:18; Start 10/19/16 at 17:18; Stop 10/19/16 at 17:19; Status DC Verapamil HCl (Isoptin Inj) 5 mg STK-MED ONCE .ROUTE Last administered on 17:27; Start 10/19/16 at 17:27; Stop 10/19/16 at 17:28; Status DC Iodixanol (Visipaque 320 Inj) 100 ml STK-MED ONCE I-ARTERIAL Last administered on 10/19/16 18:08; Start 10/19/16 at 18:08; Stop 10/19/16 at 18:09; Status DC Diphenhydramine HCl (Benadryl Inj) 6.25 mg Q4H PRN IV PUSH itching, rash Last administered on 11/04/16 20:45; Start 10/19/16 at 19:15; Stop 11/05/16 at 13:47; Status DC Vancomycin HCl 1250 mg/Sodium Chloride 262.5 ml @ 250 mls/hr ONCE ONCE IV ; Start 10/20/16 at 12:30; Stop 10/20/16 at 12:33; Status DC Cefepime HCl 2000 mg/Sodium Chloride 100 ml @ 200 mls/hr Q8H IV Last administered on 10/29/16 21:00; Start 10/20/16 at 13:00; Stop 10/29/16 at 23:59 ; Status DC Metronidazole 100 ml @ 100 mls/hr Q6H IV Last administered on 10/23/16 08:13 ; Start 10/20/16 at 14:00; Stop 10/23/16 at 10:43; Status DC Vancomycin HCl 1250 mg/Sodium Chloride 262.5 ml @ 250 mls/hr ONCE ONCE IV Last administered on 10/20/16 15:00; Start 10/20/16 at 15:00; Stop 10/20/16 at 16:02; Status DC Vasopressin 40 units/Dextrose 100 ml @ 6 mls/hr [id number] IV Last administered on 10/23/16 04:16; Start 10/20/16 at 15:23; Stop 10/23/16 at 10:43; Status DC Dextrose (D50w (Vial) Inj) 25 ml UNSCH PRN IV PUSH HYPOGLYCEMIA-SEE COMMENTS; Start 10/20/16 at 17:15; Stop 10/30/16 at 15:07; Status DC Insulin Human Regular (NovoLIN R SUPPLEMENTAL SCALE) 1 Q6HR SQ Last administered on 10/23/16 05:39; Start 10/20/16 at 18:00; Stop 10/30/16 at 15:07 ; Status DC Sodium Chloride 500 ml @ 500 mls/hr BOLUS ONCE IV Last administered on 18:27; Start 10/20/16 at 17:15; Stop 10/20/16 at 18:14; Status DC Sodium Chloride 1,000 ml @ 999 mls/hr BOLUS ONCE IV Last administered on 10/21 10:01; Start 10/21/16 at 08:30; Stop 10/21/16 at 09:30; Status DC Sodium Chloride 1,000 ml @ 60 mls/hr [id number] IV Last administered on 00:21; Start 10/21/16 at 08:30; Stop 11/18/16 at 08:54; Status DC Sodium Chloride (Sodium Chloride) 2 gm Q8HR PO Last administered on 10/22/16 04:56; Start 10/21/16 at 08:30; Stop 10/22/16 at 10:01; Status DC Sodium Chloride 500 ml @ 500 mls/hr BOLUS ONCE IV Last administered on 20:06; Start 10/21/16 at 19:15; Stop 10/21/16 at 20:14; Status DC Fludrocortisone Acetate (Florinef) 0.1 mg Q12HR PO Last administered on 09:13; Start 10/22/16 at 09:00; Stop 10/22/16 at 16:26; Status DC Sodium Chloride 500 ml @ 20 mls/hr ONCE ONCE IV Last administered on 06:15; Start 10/22/16 at 06:15; Stop 10/23/16 at 07:14; Status DC Sodium Chloride 1,000 ml @ 999 mls/hr BOLUS ONCE IV Last administered on 10/22 06:15; Start 10/22/16 at 06:15; Stop 10/22/16 at 07:15; Status DC Sodium Chloride (Sodium Chloride) 3 gm Q8HR PO Last administered on 11/16/16 05:48; Start 10/22/16 at 14:00; Stop 11/16/16 at 09:16; Status DC Fludrocortisone Acetate (Florinef) 0.2 mg Q12HR PO Last administered on 09:01; Start 10/22/16 at 21:00; Stop 12/19/16 at 15:24; Status DC Sodium Chloride 1,000 ml @ 999 mls/hr BOLUS ONCE IV Last administered on 10/22 16:49; Start 10/22/16 at 16:30; Stop 10/22/16 at 17:30; Status DC Sodium Chloride 500 ml @ 40 mls/hr CONTINUOUS IV Last administered on 18:50; Start 10/22/16 at 16:30; Stop 10/23/16 at 19:54; Status DC Sodium Chloride 500 ml @ 500 mls/hr BOLUS ONCE IV Last administered on 06:46; Start 10/23/16 at 06:45; Stop 10/23/16 at 07:44; Status DC Cisatracurium Besylate (Nimbex Inj) 20 mg STAT ONCE IV Last administered on 11:35; Start 10/23/16 at 10:30; Stop 10/23/16 at 11:01; Status DC Propofol 100 ml @ 0 mls/hr TITRATE IV ; Start 10/23/16 at 10:30; Stop 10/25/16 at 11:27; Status DC Fentanyl Citrate (fentaNYL INJ) 100 mcg STAT ONCE IV PUSH Last administered on 10/23/16 11:35; Start 10/23/16 at 10:30; Stop 10/23/16 at 11:02; Status DC Enoxaparin Sodium (Lovenox Inj) 40 mg Q24H SQ Last administered on 04/17/17 23:04; Start 10/23/16 at 21:00; Status Future hold Sodium Chloride 500 ml @ 20 mls/hr CONTINUOUS IV Last administered on 10:32; Start 10/23/16 at 20:00; Stop 10/25/16 at 20:01; Status DC Propofol (Diprivan 200 Mg/20 ml Inj) 130 mg STK-MED ONCE IV ; Start 10/24/16 at 08:53; Stop 10/24/16 at 10:11; Status DC Potassium Chloride 100 ml @ 50 mls/hr Q2H PRN IV For Potassium 2.8 - 3.2 mEq/ L Last administered on 11/03/16 05:17; Start 10/24/16 at 15:15; Stop 11/04/16 at 12:19; Status DC Potassium Chloride 100 ml @ 50 mls/hr Q2H PRN IV For Potassium 2.8 - 3.2 mEq/ L Last administered on 10/31/16 16:39; Start 10/24/16 at 15:15; Stop 11/04/16 at 12:19; Status DC Potassium Bicarb/ Potassium Chloride (K-Lyte Cl Eff) 50 meq UNSCH PRN PO For Potassium 3.3 - 3.5 mEq/L; Start 10/24/16 at 15:15; Stop 11/04/16 at 12:19; Status DC Potassium Chloride 100 ml @ 25 mls/hr UNSCH PRN IV For Potassium 3.3 - 3.5 mEq /L Last administered on 10/26/16 21:47; Start 10/24/16 at 15:15; Stop 11/04/16 at 12:19; Status DC Potassium Chloride 100 ml @ 50 mls/hr Q2H PRN IV For Potassium 3.3 - 3.5 mEq/L ; Start 10/24/16 at 15:15; Stop 11/04/16 at 12:19; Status DC Magnesium Sulfate 4 gm/Sodium Chloride 100 ml @ 50 mls/hr UNSCH PRN IV For Magnesium 0.9 - 1.1 mg/dL; Start 10/24/16 at 15:15; Stop 11/04/16 at 12:19; Status DC Magnesium Oxide (Mag-Ox) 800 mg UNSCH PRN PO For Magnesium 1.2 - 1.6 mg/dL; Start 10/24/16 at 15:15; Stop 11/04/16 at 12:19; Status DC Magnesium Sulfate 2 gm/Sodium Chloride 100 ml @ 50 mls/hr UNSCH PRN IV For Magnesium 1.2 - 1.6 mg/dL; Start 10/24/16 at 15:15; Stop 11/04/16 at 12:19; Status DC Potassium Phosphate (K-Phos) 2,000 mg Q4H PRN PO For Phosphorus < 2.5 mg/dL; Start 10/24/16 at 15:15; Stop 11/04/16 at 12:19; Status DC Sodium Phosphate 30 mmol/Sodium Chloride 250 ml @ 42 mls/hr UNSCH PRN IV For Phosphorus < 2.5 mg/dL; Start 10/24/16 at 15:15; Stop 11/04/16 at 12:19; Status DC Potassium Phosphate (K-Phos) 2,000 mg UNSCH PRN PO/TUBE SEE LABEL COMMENTS; Start 10/24/16 at 15:15; Stop 11/04/16 at 12:19; Status DC Potassium Phosphate 30 mmol/ Sodium Chloride 260 ml @ 42 mls/hr UNSCH PRN IV SEE LABEL COMMENTS; Start 10/24/16 at 15:15; Stop 12/05/16 at 10:20; Status DC Sodium Chloride 500 ml @ 10 mls/hr Q24H IV Last administered on 10/29/16 20: 54; Start 10/25/16 at 21:00; Stop 10/30/16 at 12:48; Status DC Cefepime HCl 2000 mg/Sodium Chloride 100 ml @ 200 mls/hr Q8HR IV Last administered on 11/06/16 05:05; Start 10/30/16 at 14:00; Stop 11/06/16 at 12:00; Status DC Fentanyl Citrate (fentaNYL INJ) 50 mcg Q3H PRN IV PAIN 1-10 Last administered on 11/05/16 05:07; Start 10/30/16 at 15:15; Stop 11/05/16 at 13:47; Status DC Docusate Sodium (Colace Liq) 100 mg Q12H G-TUBE Last administered on 11/03/16 17:00; Start 10/31/16 at 17:00; Stop 11/06/16 at 16:48; Status DC Potassium Chloride 100 ml @ 50 mls/hr Q2H PRN IV For Potassium 2.8 - 3.2 mEq/ L Last administered on 11/20/16 07:31; Start 11/03/16 at 05:15; Stop 12/05/16 at 10:20; Status DC Potassium Chloride 100 ml @ 50 mls/hr Q2H PRN IV For Potassium 2.8 - 3.2 mEq/ L Last administered on 11/29/16 06:01; Start 11/03/16 at 05:15; Stop 12/05/16 at 10:20; Status DC Potassium Bicarb/ Potassium Chloride (K-Lyte Cl Eff) 50 meq UNSCH PRN PO For Potassium 3.3 - 3.5 mEq/L Last administered on 11/22/16 07:07; Start 11/03/16 at 05:15; Stop 12/05/16 at 10:21; Status DC Potassium Chloride 100 ml @ 25 mls/hr UNSCH PRN IV For Potassium 3.3 - 3.5 mEq /L Last administered on 11/19/16 01:44; Start 11/03/16 at 05:15; Stop 12/05/16 at 10:21; Status DC Potassium Chloride 100 ml @ 50 mls/hr Q2H PRN IV For Potassium 3.3 - 3.5 mEq/ L Last administered on 11/25/16 08:51; Start 11/03/16 at 05:15; Stop 12/05/16 at 10:21; Status DC Magnesium Sulfate 4 gm/Sodium Chloride 100 ml @ 50 mls/hr UNSCH PRN IV For Magnesium 0.9 - 1.1 mg/dL; Start 11/03/16 at 05:15; Stop 12/05/16 at 10:21; Status DC Magnesium Oxide (Mag-Ox) 800 mg UNSCH PRN PO For Magnesium 1.2 - 1.6 mg/dL; Start 11/03/16 at 05:15; Stop 12/05/16 at 10:21; Status DC Magnesium Sulfate 2 gm/Sodium Chloride 100 ml @ 50 mls/hr UNSCH PRN IV For Magnesium 1.2 - 1.6 mg/dL; Start 11/03/16 at 05:15; Stop 12/05/16 at 10:21; Status DC Potassium Phosphate (K-Phos) 2,000 mg Q4H PRN PO For Phosphorus < 2.5 mg/dL; Start 11/03/16 at 05:15; Stop 12/05/16 at 10:22; Status DC Sodium Phosphate 30 mmol/Sodium Chloride 250 ml @ 42 mls/hr UNSCH PRN IV For Phosphorus < 2.5 mg/dL; Start 11/03/16 at 05:15; Stop 12/05/16 at 10:22; Status DC Potassium Phosphate (K-Phos) 2,000 mg UNSCH PRN PO/TUBE SEE LABEL COMMENTS; Start 11/03/16 at 05:15; Stop 12/05/16 at 10:22; Status DC Furosemide (Lasix Inj) 40 mg ONCE ONCE IV PUSH Last administered on 11/03/16 18:16; Start 11/03/16 at 18:15; Stop 11/03/16 at 18:16; Status DC Potassium Chloride 30 meq/ Sodium Chloride 115 ml @ 38.333 mls/ hr Q3H IV- CENTRAL Last administered on 11/03/16 22:53; Start 11/03/16 at 20:00; Stop at 01:59; Status DC Labetalol HCl (Trandate) 100 mg Q8H PO Last administered on 04/18/17 04:57; Start 11/03/16 at 20:00 Hydralazine HCl (Apresoline) 50 mg Q12HR PO Last administered on 12/19/16 09: 01; Start 11/03/16 at 19:00; Stop 12/19/16 at 15:24; Status DC Amlodipine Besylate (Norvasc) 5 mg DAILY PO Last administered on 04/18/17 09: 59; Start 11/04/16 at 09:00 Nystatin (Mycostatin Powder) 1 applic TID TOPICAL Last administered on 18:00; Start 11/06/16 at 09:00; Stop 02/12/17 at 09:42; Status DC Lactobacillus Acidophilus (Lactinex) 1 tab Q12HR PO Last administered on 09:17; Start 11/06/16 at 21:00; Stop 02/07/17 at 10:54; Status DC Quetiapine Fumarate (SEROquel) 25 mg BID@09,12 PO Last administered on 09:19; Start 11/07/16 at 09:00; Stop 01/30/17 at 11:56; Status DC Multi-Ingredient Mouthwash/Gargle (Magic Mouthwash Adult Liq) 5 ml QID SWISH- SWAL Last administered on 11/16/16 13:00; Start 11/06/16 at 18:00; Stop at 17:59; Status DC Docusate Sodium (Colace Liq) 100 mg Q12H PRN G-TUBE constipation Last administered on 12/11/16 21:59; Start 11/06/16 at 17:00; Stop 02/12/17 at 00:02 ; Status DC Potassium Bicarbonate (Effer-K Eff) 25 meq DAILY PO Last administered on 09:00; Start 11/06/16 at 17:00; Stop 11/09/16 at 16:59; Status DC Diphenhydramine HCl (Benadryl Inj) 25 mg ONCE ONCE IV PUSH Last administered on 11/08/16 01:55; Start 11/08/16 at 01:45; Stop 11/08/16 at 01:46; Status DC Loperamide HCl (Imodium) 2 mg UNSCH PRN PO DIARRHEA Last administered on 12:57; Start 11/09/16 at 09:45 Diphenoxylate HCl/ Atropine (Lomotil Tab) 1 tab Q6H PRN PO severe diarrhea ; Start 11/09/16 at 09:45 Metronidazole (Flagyl) 500 mg Q8H PO Last administered on 11/30/16 09:28; Start 11/09/16 at 16:00; Stop 11/30/16 at 14:47; Status DC Thrombin (Thrombin Top Soln) 10,000 units STK-MED ONCE .ROUTE ; Start 11/10/16 at 08:31; Stop 11/10/16 at 08:32; Status DC Gelatin (Gelfoam 100 Top) 1 foam STK-MED ONCE .ROUTE ; Start 11/10/16 at 08:31; Stop 11/10/16 at 08:32; Status DC Potassium Bicarb/ Potassium Chloride (K-Lyte Cl Eff) 50 meq NOW ONCE NG Last administered on 11/15/16 20:42; Start 11/15/16 at 20:45; Stop 11/15/16 at 20:46 ; Status DC Potassium Chloride 100 ml @ 25 mls/hr Q4H IV Last administered on 11/16/16 01 :13; Start 11/15/16 at 21:00; Stop 11/16/16 at 04:59; Status DC Sodium Chloride (Sodium Chloride) 2 gm Q8HR PO Last administered on 11/21/16 13:21; Start 11/16/16 at 14:00; Stop 11/21/16 at 17:30; Status DC Diphenhydramine HCl (Benadryl Inj) 50 mg Q6H PRN IV ITCHING Last administered on 11/29/16 23:29; Start 11/16/16 at 23:00; Stop 12/20/16 at 17:44; Status DC Diphenhydramine HCl (Benadryl Inj) 50 mg STK-MED ONCE .ROUTE ; Start 11/16/16 at 22:55; Stop 11/16/16 at 22:56; Status DC Quetiapine Fumarate (SEROquel) 25 mg HS PO Last administered on 01/17/17 22:26 ; Start 11/20/16 at 21:00; Stop 01/19/17 at 12:17; Status DC Sodium Chloride (Sodium Chloride) 2 gm BID PO Last administered on 11/23/16 07 :28; Start 11/22/16 at 09:00; Stop 11/23/16 at 11:40; Status DC Potassium Chloride (KCl) 20 meq BID PO Last administered on 11/24/16 20:18; Start 11/23/16 at 09:00; Stop 11/25/16 at 14:47; Status DC Sodium Chloride (Sodium Chloride) 2 gm DAILY PO Last administered on 12/19/16 09:00; Start 11/24/16 at 09:00; Stop 12/19/16 at 15:24; Status DC Thrombin (Thrombin Top Soln) 10,000 units STK-MED ONCE .ROUTE Last administered on 11/24/16 15:50; Start 11/24/16 at 07:55; Stop 11/24/16 at 07:56 ; Status DC Gelatin (Gelfoam 100 Top) 1 foam STK-MED ONCE .ROUTE Last administered on 15:50; Start 11/24/16 at 07:56; Stop 11/24/16 at 07:57; Status DC Lidocaine/ Epinephrine (Xylocaine-Epi 1%-1:100,000 Inj) 50 ml STK-MED ONCE .ROUTE Last administered on 11/24/16 15:50; Start 11/24/16 at 07:56; Stop at 07:57; Status DC Gentamicin Sulfate (Gentamicin Inj) 240 mg STK-MED ONCE .ROUTE Last administered on 11/24/16 15:50; Start 11/24/16 at 07:56; Stop 11/24/16 at 07:57 ; Status DC Vancomycin HCl (Vancomycin Inj) 1,000 mg STK-MED ONCE .ROUTE Last administered on 11/24/16 15:40; Start 11/24/16 at 14:41; Stop 11/24/16 at 14:42; Status DC Sodium Chloride 250 ml @ As Directed STK-MED ONCE .ROUTE ; Start 11/24/16 at 14 :41; Stop 11/24/16 at 14:42; Status DC Fentanyl Citrate (fentaNYL INJ) 250 mcg STK-MED ONCE .ROUTE ; Start 11/24/16 at 17:28; Stop 11/24/16 at 17:29; Status DC Potassium Chloride/Sodium Chloride 1,000 ml @ 84 mls/hr [id number] IV Last administered on 11/24/16 20:52; Start 11/24/16 at 17:45; Stop 11/24/16 at 23:44 ; Status DC Miscellaneous Information ALL NURSING DEPARTME... UNSCH PRN .XX SEE LABEL COMMENTS; Start 11/24/16 at 18:15; Stop 11/25/16 at 18:14; Status DC Potassium Bicarb/ Potassium Chloride (K-Lyte Cl Eff) 25 meq Q12HR NG Last administered on 12/12/16 22:08; Start 11/25/16 at 21:00; Stop 12/13/16 at 08:26 ; Status DC Propofol (Diprivan 200 Mg/20 ml Inj) 200 mg STK-MED ONCE IV ; Start 11/24/16 at 14:31; Stop 11/29/16 at 14:34; Status DC Ephedrine Sulfate (ePHEDrine/NS 25 MG/5 ML SYR) 25 mg STK-MED ONCE IV ; Start at 14:31; Stop 11/29/16 at 14:34; Status DC Neostigmine Methylsulfate (Prostigmin Inj) 3 mg STK-MED ONCE IV ; Start at 14:31; Stop 11/29/16 at 14:34; Status DC Phenylephrine HCl (Neosynephrine/ NS 1000 Mcg/10ml Syr) 2,000 mcg STK-MED ONCE IV ; Start 11/24/16 at 14:31; Stop 11/29/16 at 14:34; Status DC Ondansetron HCl (Zofran Inj) 4 mg STK-MED ONCE IV PUSH ; Start 11/24/16 at 14:31 ; Stop 11/29/16 at 14:34; Status DC Vasopressin (Pitressin Inj) 20 units STK-MED ONCE IV ; Start 11/24/16 at 14:31; Stop 11/29/16 at 14:34; Status DC Potassium Bicarb/ Potassium Chloride (K-Lyte Cl Eff) 25 meq ONCE ONCE PO Last administered on 12/08/16 10:10; Start 12/08/16 at 08:00; Stop 12/08/16 at 08: 06; Status DC Lactulose (Lactulose Liq) 30 ml QID PRN PO high ammonia level; Start 12/09/16 at 13:45 Potassium Chloride (KCl) 20 meq ONCE ONCE PO Last administered on 12/12/16 13 :40; Start 12/12/16 at 12:30; Stop 12/12/16 at 12:31; Status DC Potassium Bicarb/ Potassium Chloride (K-Lyte Cl Eff) 50 meq Q12HR NG Last administered on 02/11/17 20:53; Start 12/13/16 at 09:00; Stop 02/12/17 at 00:03 ; Status DC Potassium Chloride (KCl) 30 meq ONCE ONCE PO Last administered on 12/14/16 08 :36; Start 12/14/16 at 07:45; Stop 12/14/16 at 07:52; Status DC Pantoprazole Sodium (Protonix) 40 mg DAILY PO Last administered on 04/18/17 10:00; Start 12/16/16 at 09:00 Fludrocortisone Acetate (Florinef) 0.2 mg DAILY PO Last administered on 08:51; Start 12/20/16 at 09:00; Stop 01/13/17 at 18:35; Status DC Diphenhydramine HCl (Benadryl) 50 mg Q6H PRN PO Itchiness. Last administered on 04/13/17 21:20; Start 12/20/16 at 17:45 Haloperidol Lactate (Haldol Inj) 5 mg ONCE ONCE IM Last administered on 22:52; Start 12/22/16 at 22:30; Stop 12/22/16 at 22:48; Status DC Fludrocortisone Acetate (Florinef) 0.2 mg Q48H PO Last administered on 08:15; Start 01/15/17 at 09:00; Stop 01/25/17 at 07:37; Status DC Quetiapine Fumarate (SEROquel) 50 mg HS PO Last administered on 01/29/17 20:15 ; Start 01/19/17 at 21:00; Stop 01/30/17 at 11:56; Status DC Haloperidol Lactate (Haldol Inj) 5 mg ONCE ONCE IM Last administered on 22:05; Start 01/19/17 at 22:00; Stop 01/19/17 at 22:01; Status DC Quetiapine Fumarate (SEROquel) 100 mg BID@09,12 PO Last administered on 12:38; Start 01/30/17 at 12:00; Stop 02/23/17 at 12:59; Status DC Lactobacillus Acidophilus (Lactinex) 1 tab DAILY PO Last administered on 09:07; Start 02/08/17 at 09:00; Stop 02/12/17 at 07:39; Status DC Docusate Sodium (Colace) 100 mg Q12H PRN PO CONSTIPATION; Start 02/12/17 at 00: 15 Potassium Bicarb/ Potassium Chloride (K-Lyte Cl Eff) 50 meq Q12HR PO ; Start at 09:00; Stop 02/12/17 at 09:44; Status DC Albuterol/ Ipratropium (Duoneb Neb) 1 ampule Q4HR NEB PRN INH WHEEZING; Start 02/12/17 at 12:00 Potassium Chloride (KCl) 40 meq DAILY PO Last administered on 04/18/17 09:59 ; Start 02/13/17 at 09:00 Senna/Docusate Sodium (Tonie-Colace) 1 tab BID PO Last administered on 10:00; Start 02/18/17 at 09:30 Quetiapine Fumarate (SEROquel) 200 mg BID@09,12 PO Last administered on 10:00; Start 02/24/17 at 09:00 Haloperidol Lactate (Haldol Inj) 2 mg ONCE ONCE IM Last administered on 03:15; Start 02/27/17 at 03:15; Stop 02/27/17 at 03:16; Status DC Lactulose (Lactulose Liq) 30 ml DAILY PO Last administered on 04/18/17 10:00 ; Start 03/16/17 at 10:45 Haloperidol Lactate (Haldol Inj) 2 mg ONCE ONCE IM Last administered on 22:08; Start 03/18/17 at 20:00; Stop 03/18/17 at 20:01; Status DC Urinary Catheter: No Vascular Central Line Catheter: No A/P Problem List: (1) 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 ICD Code: I60.8 - Other nontraumatic subarachnoid hemorrhage Status: Acute (2) Hypertension ICD Code: I10 - Essential (primary) hypertension Status: Chronic (3) Major neurocognitive disorder due to vascular disease, without behavioral disturbance, severe ICD Code: F01.50 - Vascular dementia without behavioral disturbance Status: Acute (4) Intracranial hemorrhage ICD Code: I62.9 - Nontraumatic intracranial hemorrhage, unspecified Status: Resolved (5) Major neurocognitive disorder as late effect of traumatic brain injury with behavioral disturbance ICD Code: S06.9X9S - Unspecified intracranial injury with loss of consciousness of unspecified duration, sequela; F02.81 - Dementia in other diseases classified elsewhere with behavioral disturbance Status: Acute (6) Encephalopathy ICD Code: G93.40 - Encephalopathy, unspecified Status: Acute (7) Acute respiratory failure with hypoxia and hypercarbia ICD Code: J96.01 - Acute respiratory failure with hypoxia; J96.02 - Acute respiratory failure with hypercapnia Status: Acute Assessment and Plan Mr. Nunez is a 51 year old male who was brought to the hospital as a trauma alert due to head injury after he fell in the bathroom and hit his head. Patient was unresponsive for approximately 15 minutes by the time ambulance services arrived. His mentation waxed and waned with GCS ranging from [address] head indicated subarachnoid hemorrhage, acute. Intracranial hemorrhage, status post basilar artery coiling 10/05, Status post [employer] shunt on 11/24/2016 Chronic encephalopathy Hydrocephalus Cortical blindness - Neurology signed off. Neuropsychology following patient ultimately for discharge placement and assistance with recommendations. Per neuropsychology note, ongoing areas of concern include behavioral impulsivity, lack of insight and judgement. - Speech therapy recommends regular diet with thin liquids. Patient is eating well. PEG dc'd 01/08/17. - Continue Seroquel 100mg BID per psychiatry HTN - controlled - continue on Norvasc 5mg daily and Labetalol 100mg q8h Acute hypoxic hypercarbic respiratory failure, resolved - Tracheostomy 10/23/16, removed, old trach site healed. - Monitor respiratory status - stable on RA C. difficile colitis, resolved - Completed Flagyl on 10/23 - No diarrhea reported - off Lactinex RENAL INSUFFICIENCY APPEARS CHRONIC NOW DVT prophylaxis: SCDs, YOUSIF hose, Lovenox. Ambulation. GI prophylaxis: Protonix. Discussed with patient asked to increase water intake. AWAIT SAFE PLACEMENT Discharge Planning AWAIT SAFE PLACEMENT Problem Qualifiers (1) Hypertension: Christian Cain DO Apr 18, 2017 13:26
[2017-04-18 15:04] VITALS: BP 119/78; PULSE 108; RESP 20; TEMP 97.8; O2SAT 94
[2017-04-18 20:00] VITALS: BP 133/86; PULSE 94; RESP 18; TEMP 98.7; O2SAT 93
[2017-04-18] MEDS: ENOXAPARIN SODIUM 40 MG/0.4 ML SYRINGE SQ SCH (20:34)
[2017-04-19] VITALS: BP 123/76; PULSE 81; RESP 18; TEMP 97.2; O2SAT 94
[2017-04-19] MEDS: diphenhydrAMINE HCL 50 MG CAP PO PRN ×2 (01:03→21:04)
[2017-04-19 04:00] VITALS: BP_SYST 118; BP_SYST 126; BP_DIAS 77; BP_DIAS 79; PULSE 70; PULSE 72; RESP 16; RESP 20; TEMP 97.5; TEMP 97.7; O2SAT 95
[2017-04-19] MEDS: LABETALOL HCL 100 MG TAB PO SCH ×3 (05:34→20:58)
[2017-04-19 08:00] VITALS: BP 120/79; PULSE 86; RESP 18; TEMP 97.6; O2SAT 93
[2017-04-19] MEDS: LACTULOSE SYRUP 20 GM/30 ML CUP PO SCH (09:26)
[2017-04-19] MEDS: PANTOPRAZOLE SOD 40 MG DELAYED RELEASE TAB PO SCH (09:26)
[2017-04-19] MEDS: POTASSIUM CHLORIDE 20 MEQ CONTROLLED RELEASE TAB PO SCH (09:26)
[2017-04-19] MEDS: PRAVASTATIN SOD 40 MG TAB PO SCH (09:26)
[2017-04-19] MEDS: DOCUSATE SODIUM 50 MG/SENNA 8.6 MG TAB PO SCH ×2 (09:26→20:58)
[2017-04-19] MEDS: QUEtiapine FUMARATE 100 MG TAB PO SCH ×2 (09:26→12:41)
[2017-04-19] MEDS: amLODIPine BESYLATE 5 MG TAB PO SCH (09:26)
--- NOTE | 2017-04-19 11:36 | HHI.PR ---
Subjective Remarks NO NEW COMPLAINTS STILL AWAITS SAFE PLACEMENT DW RN AND PT TOLERATING A DIET LISTENING TO TELEVISION 04-17 patient is SITTING ON SIDE OF BED NO SOB, NO CHEST PAIN, NO PALPITATIONS HAVING BOWEL MOVEMENTS DW RN AND PT 04-18 SISTER IS PLANNING TO SHAVE HIM TODAY NO NEW COMPLAINTS NO SOB, NO CHEST PAIN DW PT AND RN 04-19 NO NEW COMPLAINTS HAD SHAVE AND HAIRCUT YESTERDAY DW PT AND RN Objective Vitals Vital Signs Date Time Temp Pulse Resp B/P (MAP) Pulse Ox O2 Delivery O2 Flow Rate FiO2 04/19/17 08:00 97.6 86 18 120/79 (93) 93 04/19/17 04:00 97.7 72 16 126/77 (93) 95 04/19/17 00:00 97.2 81 18 123/76 (92) 94 04/18/17 20:00 98.7 94 18 133/86 (102) 93 04/18/17 15:04 97.8 108 20 119/78 (92) 94 04/18/17 12:26 97.6 97 20 121/76 (91) 97 I/O 04/18/17 04/18/17 04/18/17 04/19/17 04/19/17 04/19/17 07:00 15:00 23:00 07:00 15:00 23:00 Intake Total 930 ml Balance 930 ml Intake Oral 930 ml # Voids 4 3 4 # Bowel Movements 1 1 1 Result Diagram: 04/15/17 1026 Imaging Last Impressions Chest X-Ray 02/18/17 0000 Signed Impressions: Service Date/Time: Saturday, February 18, 2017 10:51 - CONCLUSION: Diminished lung volumes. No infiltrate. Tyrese Raymond MD Abdomen X-Ray 02/18/17 0000 Signed Impressions: Service Date/Time: Saturday, February 18, 2017 10:56 - CONCLUSION: Unremarkable abdomen. Tyrese Raymond MD Gall Bladder Ultrasound 02/17/17 0000 Signed Impressions: Service Date/Time: Friday, February 17, 2017 17:45 - CONCLUSION: Mildly enlarged liver and small amount of gallbladder sludge. Tim Hammonds MD Head CT 12/09/16 0000 Signed Impressions: Service Date/Time: Friday, December 09, 2016 17:36 - CONCLUSION: 1. Right ventriculostomy tube remains in place with decrease in ventricular size since November 24. There is some encephalomalacia around the shunt and a probable small infarct in the left basal ganglia. No new hemorrhage or shift. Tip Harris MD Transcranial Doppler Study Complete 10/26/16 0700 Signed Impressions: Service Date/Time: Wednesday, October 26, 2016 08:20 - CONCLUSION: Minimal interval improvement with no evidence for vasospasm. Christian Song MD FACR Neck CTA 10/19/16 0000 Signed Impressions: Service Date/Time: Wednesday, October 19, 2016 14:19 - CONCLUSION: Negative for dissection or significant stenosis. Christian Song MD FACR Head CTA 10/19/16 0000 Signed Impressions: Service Date/Time: Wednesday, October 19, 2016 14:19 - CONCLUSION: 1. Interval development of significant vasospasm in the left MCA and SRI territories. 2. Mild vasospasm in the basilar artery.. Gume Mckeon MD Cerebral Arteriogram 10/19/16 0000 Signed Impressions: Service Date/Time: Wednesday, October 19, 2016 16:06 - CONCLUSION: 1. Vasospasm in the left MCA and SRI territories 2. Spasmolytic infusion, left internal carotid artery as above.. 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 Gume Mckeon MD Pelvis X-Ray 10/05/16109 Signed Impressions: Service Date/Time: Wednesday, October 05, 2016 01:22 - CONCLUSION: Unremarkable examination of the pelvis. Ruben Acuña Jr., MD Chest CT 10/05/16109 Signed Impressions: Service Date/Time: Wednesday, October 05, 2016 01:46 - CONCLUSION: 1. No acute intrathoracic abnormality. 2. Bibasilar atelectasis. 3. Cardiomegaly. 4. Prior granulomatous disease. Ruben Acuña Jr., MD Cervical Spine CT 10/05/16109 Signed Impressions: Service Date/Time: Wednesday, October 05, 2016 01:40 - CONCLUSION: 1. No fracture or dislocation. 2. Multilevel degenerative changes. Ruben Acuña Jr., MD Abdomen/Pelvis CT 10/05/16 0110 Signed Impressions: Service Date/Time: Wednesday, October 05, 2016 01:46 - CONCLUSION: 1. No acute trauma. 2. Rounded area of decreased density involving the pancreatic head. I cannot completely exclude pancreatic head mass. At some point MRI of the pancreas is suggested to further evaluate. 3. Focal area of poor enhancement involving the left kidney. This may relate to an area of parenchymal scarring. I cannot completely exclude a mass. This can be further assessed with MRI as well. Ruben Acuña Jr., MD Objective Remarks GENERAL: AWAKE AND ALERT SKIN: Warm and dry. HEAD: Atraumatic. Normocephalic. EYES: Pupils equal and round. No scleral icterus. No injection or drainage. BLINDNESS-SEES SHADOWS ENT: No nasal bleeding or discharge. Mucous membranes pink and moist.TONGUE MIDLINE NECK: Trachea midline. No JVD. SUPPLE CARDIOVASCULAR: Regular rate and rhythm. S1, S2 NO S3 OR S4 RESPIRATORY: No accessory muscle use. Clear to auscultation. Breath sounds equal bilaterally. GASTROINTESTINAL: Abdomen soft, non-tender, nondistended. Hepatic and splenic margins not palpable. MUSCULOSKELETAL: Extremities without clubbing, cyanosis, or edema. No obvious deformities. NEUROLOGICAL: Awake and alert. No obvious cranial nerve deficits. Motor grossly within normal limits. 4 out of 5 muscle strength in the arms and legs. Normal speech. PSYCHIATRIC: INAppropriate mood and affect; insight and judgment ABnormal. Procedures 10/05/16 right frontal twist drill for ventriculostomy placement 10/20/16 arterial line placement 10/23/16 bedside percutaneous tracheostomy under direct bronchoscopic visualization 10/24/16 PEG tube placement at bedside Medications and IVs Current Medications Propofol 100 ml @ As Directed STK-MED ONCE .ROUTE ; Start 10/05/16 at 01:16; Stop 10/05/16 at 01:17; Status DC Cefazolin Sodium/ Dextrose 50 ml @ As Directed STK-MED ONCE .ROUTE ; Start at 01:23; Stop 10/05/16 at 01:24; Status DC Cefazolin Sodium/ Dextrose 50 ml @ 100 mls/hr ONCE STAT IV ; Start 10/05/16 at 01:26; Stop 10/05/16 at 01:55; Status DC Diphtheria/ Tetanus/Acell Pertussis (Boostrix Inj) 0.5 ml ONCE ONCE IM ; Start 10/05/16 at 01:26; Stop 10/05/16 at 01:28; Status DC Nicardipine HCl (Cardene Inj) 25 mg STK-MED ONCE .ROUTE ; Start 10/05/16 at 01:26 ; Stop 10/05/16 at 01:27; Status DC Nicardipine HCl (Cardene Inj) 25 mg STK-MED ONCE .ROUTE ; Start 10/05/16 at 01:27 ; Stop 10/05/16 at 01:28; Status DC Sodium Chloride 1,000 ml @ 0 mls/hr Q0M IV ; Start 10/05/16 at 01:30; Stop at 02:57; Status DC Nicardipine HCl 25 mg/Sodium Chloride 260 ml @ 0 mls/hr TITRATE ONCE IV Last administered on 10/05/16 02:00; Start 10/05/16 at 02:00; Stop 10/05/16 at 02:01; Status DC Iohexol (Omnipaque 350 Inj) 97 ml STK-MED ONCE IV Last administered on 02:11; Start 10/05/16 at 02:11; Stop 10/05/16 at 02:12; Status DC Etomidate (Amidate Inj) 20 mg STK-MED ONCE .ROUTE ; Start 10/05/16 at 02:13; Stop 10/05/16 at 02:14; Status DC Epinephrine HCl (EPINEPHrine (1:10,000) INJ) 1 mg STK-MED ONCE .ROUTE ; Start at 02:32; Stop 10/05/16 at 02:33; Status DC Atropine Sulfate (Atropine Inj) 1 mg STK-MED ONCE .ROUTE ; Start 10/05/16 at 02: 33; Stop 10/05/16 at 02:34; Status DC Lidocaine HCl (Xylocaine 2% Inj) 100 mg STK-MED ONCE .ROUTE ; Start 10/05/16 at 02:33; Stop 10/05/16 at 02:34; Status DC Sodium Chloride 1,000 ml @ 84 mls/hr [id number] IV Last administered on 23:55; Start 10/05/16 at 02:31; Stop 10/15/16 at 22:17; Status DC Acetaminophen (Tylenol) 650 mg Q6H PRN PO PAIN 1-10 AND/OR FEVER >101F Last administered on 04/04/17 20:54; Start 10/05/16 at 02:45 Morphine Sulfate (Morphine Inj) 2 mg Q2H PRN IV PAIN SCALE 6 TO 10 Last administered on 10/15/16 19:04; Start 10/05/16 at 02:45; Stop 10/22/16 at 06:04 ; Status DC Pantoprazole Sodium (Protonix Inj) 40 mg DAILY IV Last administered on 08:37; Start 10/05/16 at 09:00; Stop 12/15/16 at 12:50; Status DC Lorazepam (Ativan Inj) 2 mg Q4H PRN IV Agitation/Sedation Last administered on 10/11/16 12:27; Start 10/05/16 at 02:45; Stop 10/18/16 at 14:41; Status DC Artificial Tears (Tears Naturale Opth Soln) 1 drop TID EACH EYE Last administered on 02/11/17 18:00; Start 10/05/16 at 09:00; Stop 02/12/17 at 09:41 ; Status DC Ondansetron HCl (Zofran Inj) 4 mg Q6H PRN IV NAUSEA OR VOMITING Last administered on 11/27/16 23:26; Start 10/05/16 at 02:45 Metoclopramide HCl (Reglan Inj) 10 mg Q6H PRN IV NAUSEA OR VOMITING Last administered on 10/13/16 09:48; Start 10/05/16 at 02:45; Stop 10/19/16 at 07:38 ; Status DC Docusate Sodium (Colace) 100 mg Q12H G-TUBE Last administered on 10/30/16 05: 12; Start 10/05/16 at 04:00; Stop 10/31/16 at 16:41; Status DC Albuterol/ Ipratropium (Duoneb Neb) 1 ampule Q2HR NEB PRN INH WHEEZING Last administered on 10/31/16 13:41; Start 10/05/16 at 02:45; Stop 02/12/17 at 09:42; Status DC Miscellaneous Information 1 [id number] Last administered on 10/05/16 02:45; Start 10/05/16 at 02:45 Chlorhexidine Gluconate (Chlorhexidine 2% Cloth) Taper DAILY@04 TOP Last administered on 01/02/17 04:00; Start 10/05/16 at 04:00; Stop 02/12/17 at 09:41; Status DC Chlorhexidine Gluconate (Chlorhexidine 2% Cloth) 3 pack UNSCH PRN TOP HYGIENIC CARE; Start 10/05/16 at 02:45; Stop 02/12/17 at 09:41; Status DC Propofol 100 ml @ 0 mls/hr TITRATE IV Last administered on 10/13/16 16:58; Start 10/05/16 at 02:45; Stop 10/18/16 at 14:41; Status DC Nimodipine (Nimotop) 60 mg Q4HR PO ; Start 10/05/16 at 04:00; Stop 10/05/16 at 04: 00; Status DC Potassium Chloride/Sodium Chloride 1,000 ml @ 100 mls/hr Q10H IV ; Start at 02:15; Stop 10/05/16 at 02:56; Status DC Levetriacetam 500 mg/Sodium Chloride 105 ml @ 420 mls/hr Q12HR IV Last administered on 11/26/16 20:08; Start 10/05/16 at 09:00; Stop 11/26/16 at 22:02 ; Status DC Nicardipine HCl 25 mg/Sodium Chloride 260 ml @ 0 mls/hr TITRATE IV Last administered on 10/18/16 11:23; Start 10/05/16 at 02:45; Stop 11/05/16 at 13:47; Status DC Labetalol HCl (Trandate Inj) 10 mg Q4H PRN IV PUSH SBP>140, DBP>90 Last administered on 11/03/16 05:45; Start 10/05/16 at 02:45; Stop 11/05/16 at 13:47; Status DC Nimodipine (Nimotop) 60 mg Q4HR PO Last administered on 10/17/16 07:16; Start 10/05/16 at 04:00; Stop 10/17/16 at 10:55; Status DC Pravastatin Sodium (Pravachol) 40 mg DAILY PO Last administered on 04/19/17 09:26; Start 10/05/16 at 09:00 Iohexol (Omnipaque 350 Inj) 75 ml STK-MED ONCE IV Last administered on 04:15; Start 10/05/16 at 04:15; Stop 10/05/16 at 04:16; Status DC Verapamil HCl (Isoptin Inj) 10 mg STK-MED ONCE .ROUTE Last administered on 13:04; Start 10/05/16 at 13:04; Stop 10/05/16 at 13:05; Status DC Heparin Sodium (Porcine) (*HEPARIN INJ Periprocedural ONLY) 10,000 units STK- MED ONCE .ROUTE Last administered on 10/05/16 14:16; Start 10/05/16 at 15:05; Stop 10/05/16 at 15:06; Status DC Iodixanol (Visipaque 320 Inj) 120 ml STK-MED ONCE I-ARTERIAL Last administered on 10/05/16 16:18; Start 10/05/16 at 16:18; Stop 10/05/16 at 16:19; Status DC Fentanyl Citrate (fentaNYL INJ) 100 mcg STK-MED ONCE .ROUTE ; Start 10/05/16 at 16:49; Stop 10/05/16 at 16:50; Status DC Fentanyl Citrate 250 ml @ 0 mls/hr TITRATE IV Last administered on 10/17/16 00 :29; Start 10/05/16 at 22:15; Stop 10/17/16 at 11:30; Status DC Norepinephrine Bitartrate (Levophed Inj) 4 mg STK-MED ONCE .ROUTE ; Start at 04:03; Stop 10/06/16 at 04:04; Status DC Sodium Chloride 999 ml @ 0 mls/hr BOLUS ONCE IV Last administered on 10/06/16 06:38; Start 10/06/16 at 06:45; Stop 10/06/16 at 06:46; Status DC Sodium Chloride (NS Flush) See Protocol DAILY IV FLUSH Last administered on 12/05 09:00; Start 10/07/16 at 09:00; Stop 12/05/16 at 10:21; Status DC Sodium Chloride (NS Flush) See Protocol UNSCH PRN IV FLUSH SEE PROTOCOL TABLE; Start 10/06/16 at 12:00; Stop 12/05/16 at 10:21; Status DC Heparin Sodium (Porcine) (Heparin Central Flush) See Protocol DAILY IV FLUSH Last administered on 10/13/16 09:00; Start 10/07/16 at 09:00; Stop 10/18/16 at 14:41; Status DC Heparin Sodium (Porcine) (Heparin Central Flush) See Protocol UNSCH PRN IV FLUSH SEE PROTOCOL TABLE Last administered on 10/11/16 08:00; Start 10/06/16 at 12:00; Stop 10/18/16 at 14:41; Status DC Sodium Chloride (NS Flush) UNSCH PRN IV FLUSH SEE PROTOCOL TABLE Last administered on 11/21/16 19:37; Start 10/06/16 at 12:00; Stop 12/05/16 at 10:21; Status DC Norepinephrine Bitartrate (Levophed Inj) 4 mg STK-MED ONCE .ROUTE ; Start at 17:30; Stop 10/06/16 at 17:31; Status DC Norepinephrine Bitartrate 4 mg/ Sodium Chloride 254 ml @ 0 mls/hr TITRATE IV Last administered on 10/28/16 20:14; Start 10/06/16 at 18:00; Stop 11/26/16 at 22:03; Status DC Potassium Chloride 100 ml @ 50 mls/hr Q2H PRN IV For Potassium 2.8 - 3.2 mEq/L ; Start 10/07/16 at 08:00; Stop 10/12/16 at 13:11; Status DC Potassium Chloride 100 ml @ 50 mls/hr Q2H PRN IV For Potassium 2.8 - 3.2 mEq/L ; Start 10/07/16 at 08:00; Stop 10/12/16 at 13:11; Status DC Potassium Chloride 100 ml @ 25 mls/hr UNSCH PRN IV For Potassium 3.3 - 3.5 mEq /L Last administered on 10/07/16 15:56; Start 10/07/16 at 08:00; Stop 10/12/16 at 13:11; Status DC Potassium Chloride 100 ml @ 50 mls/hr Q2H PRN IV For Potassium 3.3 - 3.5 mEq/ L Last administered on 10/11/16 07:41; Start 10/07/16 at 08:00; Stop 10/12/16 at 13:11; Status DC Magnesium Sulfate 4 gm/Sodium Chloride 100 ml @ 50 mls/hr UNSCH PRN IV For Magnesium 0.9 - 1.1 mg/dL; Start 10/07/16 at 08:00; Stop 10/12/16 at 13:11; Status DC Magnesium Oxide (Mag-Ox) 800 mg UNSCH PRN PO For Magnesium 1.2 - 1.6 mg/dL; Start 10/07/16 at 08:00; Stop 10/12/16 at 13:11; Status DC Magnesium Sulfate 2 gm/Sodium Chloride 100 ml @ 50 mls/hr UNSCH PRN IV For Magnesium 1.2 - 1.6 mg/dL; Start 10/07/16 at 08:00; Stop 10/12/16 at 13:11; Status DC Potassium Phosphate (K-Phos) 2,000 mg Q4H PRN PO For Phosphorus < 2.5 mg/dL; Start 10/07/16 at 08:00; Stop 10/12/16 at 13:11; Status DC Sodium Phosphate 30 mmol/Sodium Chloride 250 ml @ 42 mls/hr UNSCH PRN IV For Phosphorus < 2.5 mg/dL; Start 10/07/16 at 08:00; Stop 10/12/16 at 13:11; Status DC Potassium Phosphate (K-Phos) 2,000 mg UNSCH PRN PO/TUBE SEE LABEL COMMENTS Last administered on 10/07/16 15:56; Start 10/07/16 at 08:00; Stop 10/12/16 at 13 :11; Status DC Potassium Phosphate 30 mmol/ Sodium Chloride 260 ml @ 42 mls/hr UNSCH PRN IV SEE LABEL COMMENTS Last administered on 10/08/16 11:23; Start 10/07/16 at 08:00; Stop 10/12/16 at 13:11; Status DC Clonidine (Catapres) 0.1 mg Q8H PRN NG SBP>170, DBP>90 Last administered on 00:28; Start 10/09/16 at 16:15; Stop 10/18/16 at 14:41; Status DC Polyethylene Glycol (Miralax) 17 gm DAILY PO Last administered on 10/28/16 09: 09; Start 10/10/16 at 14:00; Stop 10/30/16 at 15:12; Status DC Lactulose (Lactulose Liq) 30 ml DAILY PO Last administered on 10/28/16 09:09; Start 10/10/16 at 14:00; Stop 10/30/16 at 15:12; Status DC Metoprolol Tartrate (Lopressor) 25 mg Q6H PO Last administered on 10/18/16 09: 36; Start 10/10/16 at 14:00; Stop 10/18/16 at 14:41; Status DC Labetalol HCl 500 mg/Sodium Chloride 250 ml @ 0 mls/hr TITRATE IV ; Start at 17:00; Stop 10/18/16 at 14:41; Status DC Sodium Chloride 250 ml @ As Directed STK-MED ONCE .ROUTE ; Start 10/11/16 at 02 :29; Stop 10/11/16 at 02:30; Status DC Nicardipine HCl (Cardene Inj) 25 mg STK-MED ONCE .ROUTE ; Start 10/11/16 at 02: 29; Stop 10/11/16 at 02:30; Status DC Tamsulosin HCl (Flomax) 0.4 mg Q12HR PO Last administered on 10/17/16 07:16; Start 10/11/16 at 09:00; Stop 10/18/16 at 14:41; Status DC Epinephrine HCl (EPINEPHrine (1:10,000) INJ) 1 mg STK-MED ONCE .ROUTE ; Start at 09:51; Stop 10/11/16 at 09:52; Status DC Atropine Sulfate (Atropine Inj) 1 mg STK-MED ONCE .ROUTE ; Start 10/11/16 at 09: 51; Stop 10/11/16 at 09:52; Status DC Lidocaine HCl (Xylocaine 2% Inj) 100 mg STK-MED ONCE .ROUTE ; Start 10/11/16 at 09:51; Stop 10/11/16 at 09:52; Status DC Iohexol (Omnipaque 350 Inj) 100 ml STK-MED ONCE IV Last administered on 10:56; Start 10/11/16 at 10:56; Stop 10/11/16 at 10:57; Status DC Norepinephrine Bitartrate (Levophed Inj) 4 mg STK-MED ONCE .ROUTE ; Start at 20:25; Stop 10/11/16 at 20:26; Status DC Aztreonam 2000 mg/ Sodium Chloride 100 ml @ 200 mls/hr Q8H IV Last administered on 10/19/16 01:39; Start 10/12/16 at 02:00; Stop 10/19/16 at 07:38 ; Status DC Pharmacy Profile Note 0 ml @ 0 mls/hr UNSCH OTHER ; Start 10/12/16 at 02:15; Stop 10/13/16 at 17:17; Status DC Metronidazole 100 ml @ 100 mls/hr Q6H IV Last administered on 10/19/16 03:33 ; Start 10/12/16 at 03:00; Stop 10/19/16 at 07:39; Status DC Vancomycin HCl 2500 mg/Sodium Chloride 525 ml @ 250 mls/hr ONCE ONCE IV Last administered on 10/12/16 04:00; Start 10/12/16 at 04:00; Stop 10/12/16 at 06:05 ; Status DC Vancomycin HCl 2000 mg/Sodium Chloride 520 ml @ 250 mls/hr ONCE ONCE IV Last administered on 10/13/16 11:30; Start 10/13/16 at 11:00; Stop 10/13/16 at 17:17 ; Status DC Epinephrine HCl (EPINEPHrine (1:10,000) INJ) 1 mg STK-MED ONCE .ROUTE ; Start at 03:26; Stop 10/14/16 at 03:27; Status DC Atropine Sulfate (Atropine Inj) 1 mg STK-MED ONCE .ROUTE ; Start 10/14/16 at 03: 26; Stop 10/14/16 at 03:27; Status DC Lidocaine HCl (Xylocaine 2% Inj) 100 mg STK-MED ONCE .ROUTE ; Start 10/14/16 at 03:27; Stop 10/14/16 at 03:28; Status DC Potassium Chloride 100 ml @ 50 mls/hr Q2H PRN IV For Potassium 2.8 - 3.2 mEq/ L Last administered on 10/30/16 05:12; Start 10/14/16 at 16:00; Stop 10/30/16 at 15:11; Status DC Potassium Chloride 100 ml @ 50 mls/hr Q2H PRN IV For Potassium 2.8 - 3.2 mEq/ L Last administered on 10/30/16 13:40; Start 10/14/16 at 16:00; Stop 10/30/16 at 15:11; Status DC Potassium Bicarb/ Potassium Chloride (K-Lyte Cl Eff) 50 meq UNSCH PRN PO For Potassium 3.3 - 3.5 mEq/L Last administered on 10/30/16 05:12; Start 10/14/16 at 16:00; Stop 10/30/16 at 15:11; Status DC Potassium Chloride 100 ml @ 25 mls/hr UNSCH PRN IV For Potassium 3.3 - 3.5 mEq /L Last administered on 10/18/16 06:50; Start 10/14/16 at 16:00; Stop 10/30/16 at 15:11; Status DC Potassium Chloride 100 ml @ 50 mls/hr Q2H PRN IV For Potassium 3.3 - 3.5 mEq/ L Last administered on 10/27/16 07:41; Start 10/14/16 at 16:00; Stop 10/30/16 at 15:11; Status DC Magnesium Sulfate 4 gm/Sodium Chloride 100 ml @ 50 mls/hr UNSCH PRN IV For Magnesium 0.9 - 1.1 mg/dL; Start 10/14/16 at 16:00; Stop 10/30/16 at 15:11; Status DC Magnesium Oxide (Mag-Ox) 800 mg UNSCH PRN PO For Magnesium 1.2 - 1.6 mg/dL; Start 10/14/16 at 16:00; Stop 10/30/16 at 15:11; Status DC Magnesium Sulfate 2 gm/Sodium Chloride 100 ml @ 50 mls/hr UNSCH PRN IV For Magnesium 1.2 - 1.6 mg/dL; Start 10/14/16 at 16:00; Stop 10/30/16 at 15:11; Status DC Potassium Phosphate (K-Phos) 2,000 mg Q4H PRN PO For Phosphorus < 2.5 mg/dL Last administered on 10/17/16 02:00; Start 10/14/16 at 16:00; Stop 10/30/16 at 15:11; Status DC Sodium Phosphate 30 mmol/Sodium Chloride 250 ml @ 42 mls/hr UNSCH PRN IV For Phosphorus < 2.5 mg/dL Last administered on 10/24/16 20:31; Start 10/14/16 at 16:00; Stop 10/30/16 at 15:11; Status DC Potassium Phosphate (K-Phos) 2,000 mg UNSCH PRN PO/TUBE SEE LABEL COMMENTS Last administered on 10/18/16 06:51; Start 10/14/16 at 16:00; Stop 10/30/16 at 15:11; Status DC Potassium Phosphate 30 mmol/ Sodium Chloride 260 ml @ 42 mls/hr UNSCH PRN IV SEE LABEL COMMENTS; Start 10/14/16 at 16:00; Stop 10/30/16 at 15:11; Status DC Verapamil HCl (Isoptin Inj) 15 mg STK-MED ONCE .ROUTE Last administered on 10/15 12:55; Start 10/15/16 at 12:55; Stop 10/15/16 at 12:56; Status DC Verapamil HCl (Isoptin Inj) 5 mg STK-MED ONCE .ROUTE Last administered on 13:33; Start 10/15/16 at 13:33; Stop 10/15/16 at 13:34; Status DC Iodixanol (Visipaque 320 Inj) 75 ml STK-MED ONCE I-ARTERIAL Last administered on 10/15/16 13:52; Start 10/15/16 at 13:52; Stop 10/15/16 at 13:53; Status DC Sodium Chloride 250 ml @ As Directed STK-MED ONCE .ROUTE ; Start 10/15/16 at 20 :40; Stop 10/15/16 at 20:41; Status DC Nicardipine HCl (Cardene Inj) 25 mg STK-MED ONCE .ROUTE ; Start 10/15/16 at 20: 40; Stop 10/15/16 at 20:41; Status DC Sodium Chloride 250 ml @ As Directed STK-MED ONCE .ROUTE ; Start 10/15/16 at 22 :51; Stop 10/15/16 at 22:52; Status DC Nicardipine HCl (Cardene Inj) 25 mg STK-MED ONCE .ROUTE ; Start 10/15/16 at 22: 51; Stop 10/15/16 at 22:52; Status DC Sodium Chloride 250 ml @ As Directed STK-MED ONCE .ROUTE ; Start 10/16/16 at 01 :03; Stop 10/16/16 at 01:04; Status DC Nicardipine HCl (Cardene Inj) 25 mg STK-MED ONCE .ROUTE ; Start 10/16/16 at 01: 03; Stop 10/16/16 at 01:05; Status DC Sodium Chloride 250 ml @ As Directed STK-MED ONCE .ROUTE ; Start 10/16/16 at 01 :47; Stop 10/16/16 at 01:48; Status DC Nicardipine HCl (Cardene Inj) 25 mg STK-MED ONCE .ROUTE ; Start 10/16/16 at 01: 47; Stop 10/16/16 at 01:48; Status DC Nicardipine HCl (Cardene Inj) 25 mg STK-MED ONCE .ROUTE ; Start 10/16/16 at 03: 51; Stop 10/16/16 at 03:52; Status DC Epinephrine HCl (EPINEPHrine (1:10,000) INJ) 1 mg STK-MED ONCE .ROUTE ; Start at 03:57; Stop 10/16/16 at 03:58; Status DC Atropine Sulfate (Atropine Inj) 1 mg STK-MED ONCE .ROUTE ; Start 10/16/16 at 03: 57; Stop 10/16/16 at 03:58; Status DC Lidocaine HCl (Xylocaine 2% Inj) 100 mg STK-MED ONCE .ROUTE ; Start 10/16/16 at 03:57; Stop 10/16/16 at 03:58; Status DC Diphenhydramine HCl (Benadryl Inj) 25 mg Q6H PRN IV RASH Last administered on 03:12; Start 10/16/16 at 08:15; Stop 10/18/16 at 14:41; Status DC Nimodipine (Nimotop) 30 mg Q2H PO Last administered on 10/26/16 06:53; Start 10/17/16 at 11:00; Stop 10/26/16 at 08:46; Status DC Iohexol (Omnipaque 350 Inj) 70 ml STK-MED ONCE IV Last administered on 14:36; Start 10/19/16 at 14:36; Stop 10/19/16 at 14:37; Status DC Phenylephrine HCl 40 mg/Sodium Chloride 500 ml @ 0 mls/hr TITRATE IV Last administered on 10/20/16 16:29; Start 10/19/16 at 16:30; Stop 10/23/16 at 10:42 ; Status DC Alteplase, Recombinant (Cathflo Activase Inj) 2 mg UNSCH PRN IV FLUSH PICC LINE OCCLUSION Last administered on 11/01/16 21:47; Start 10/19/16 at 16:15; Stop 11/05/16 at 13:47; Status DC Verapamil HCl (Isoptin Inj) 5 mg STK-MED ONCE .ROUTE Last administered on 17:20; Start 10/19/16 at 16:05; Stop 10/19/16 at 16:06; Status DC Midazolam HCl (Versed Inj) 2 mg STK-MED ONCE .ROUTE Last administered on 17:18; Start 10/19/16 at 17:18; Stop 10/19/16 at 17:19; Status DC Verapamil HCl (Isoptin Inj) 5 mg STK-MED ONCE .ROUTE Last administered on 17:27; Start 10/19/16 at 17:27; Stop 10/19/16 at 17:28; Status DC Iodixanol (Visipaque 320 Inj) 100 ml STK-MED ONCE I-ARTERIAL Last administered on 10/19/16 18:08; Start 10/19/16 at 18:08; Stop 10/19/16 at 18:09; Status DC Diphenhydramine HCl (Benadryl Inj) 6.25 mg Q4H PRN IV PUSH itching, rash Last administered on 11/04/16 20:45; Start 10/19/16 at 19:15; Stop 11/05/16 at 13:47; Status DC Vancomycin HCl 1250 mg/Sodium Chloride 262.5 ml @ 250 mls/hr ONCE ONCE IV ; Start 10/20/16 at 12:30; Stop 10/20/16 at 12:33; Status DC Cefepime HCl 2000 mg/Sodium Chloride 100 ml @ 200 mls/hr Q8H IV Last administered on 10/29/16 21:00; Start 10/20/16 at 13:00; Stop 10/29/16 at 23:59 ; Status DC Metronidazole 100 ml @ 100 mls/hr Q6H IV Last administered on 10/23/16 08:13 ; Start 10/20/16 at 14:00; Stop 10/23/16 at 10:43; Status DC Vancomycin HCl 1250 mg/Sodium Chloride 262.5 ml @ 250 mls/hr ONCE ONCE IV Last administered on 10/20/16 15:00; Start 10/20/16 at 15:00; Stop 10/20/16 at 16:02; Status DC Vasopressin 40 units/Dextrose 100 ml @ 6 mls/hr [id number] IV Last administered on 10/23/16 04:16; Start 10/20/16 at 15:23; Stop 10/23/16 at 10:43; Status DC Dextrose (D50w (Vial) Inj) 25 ml UNSCH PRN IV PUSH HYPOGLYCEMIA-SEE COMMENTS; Start 10/20/16 at 17:15; Stop 10/30/16 at 15:07; Status DC Insulin Human Regular (NovoLIN R SUPPLEMENTAL SCALE) 1 Q6HR SQ Last administered on 10/23/16 05:39; Start 10/20/16 at 18:00; Stop 10/30/16 at 15:07 ; Status DC Sodium Chloride 500 ml @ 500 mls/hr BOLUS ONCE IV Last administered on 18:27; Start 10/20/16 at 17:15; Stop 10/20/16 at 18:14; Status DC Sodium Chloride 1,000 ml @ 999 mls/hr BOLUS ONCE IV Last administered on 10/21 10:01; Start 10/21/16 at 08:30; Stop 10/21/16 at 09:30; Status DC Sodium Chloride 1,000 ml @ 60 mls/hr [id number] IV Last administered on 00:21; Start 10/21/16 at 08:30; Stop 11/18/16 at 08:54; Status DC Sodium Chloride (Sodium Chloride) 2 gm Q8HR PO Last administered on 10/22/16 04:56; Start 10/21/16 at 08:30; Stop 10/22/16 at 10:01; Status DC Sodium Chloride 500 ml @ 500 mls/hr BOLUS ONCE IV Last administered on 20:06; Start 10/21/16 at 19:15; Stop 10/21/16 at 20:14; Status DC Fludrocortisone Acetate (Florinef) 0.1 mg Q12HR PO Last administered on 09:13; Start 10/22/16 at 09:00; Stop 10/22/16 at 16:26; Status DC Sodium Chloride 500 ml @ 20 mls/hr ONCE ONCE IV Last administered on 06:15; Start 10/22/16 at 06:15; Stop 10/23/16 at 07:14; Status DC Sodium Chloride 1,000 ml @ 999 mls/hr BOLUS ONCE IV Last administered on 10/22 06:15; Start 10/22/16 at 06:15; Stop 10/22/16 at 07:15; Status DC Sodium Chloride (Sodium Chloride) 3 gm Q8HR PO Last administered on 11/16/16 05:48; Start 10/22/16 at 14:00; Stop 11/16/16 at 09:16; Status DC Fludrocortisone Acetate (Florinef) 0.2 mg Q12HR PO Last administered on 09:01; Start 10/22/16 at 21:00; Stop 12/19/16 at 15:24; Status DC Sodium Chloride 1,000 ml @ 999 mls/hr BOLUS ONCE IV Last administered on 10/22 16:49; Start 10/22/16 at 16:30; Stop 10/22/16 at 17:30; Status DC Sodium Chloride 500 ml @ 40 mls/hr CONTINUOUS IV Last administered on 18:50; Start 10/22/16 at 16:30; Stop 10/23/16 at 19:54; Status DC Sodium Chloride 500 ml @ 500 mls/hr BOLUS ONCE IV Last administered on 06:46; Start 10/23/16 at 06:45; Stop 10/23/16 at 07:44; Status DC Cisatracurium Besylate (Nimbex Inj) 20 mg STAT ONCE IV Last administered on 11:35; Start 10/23/16 at 10:30; Stop 10/23/16 at 11:01; Status DC Propofol 100 ml @ 0 mls/hr TITRATE IV ; Start 10/23/16 at 10:30; Stop 10/25/16 at 11:27; Status DC Fentanyl Citrate (fentaNYL INJ) 100 mcg STAT ONCE IV PUSH Last administered on 10/23/16 11:35; Start 10/23/16 at 10:30; Stop 10/23/16 at 11:02; Status DC Enoxaparin Sodium (Lovenox Inj) 40 mg Q24H SQ Last administered on 04/18/17 20:34; Start 10/23/16 at 21:00; Status Future hold Sodium Chloride 500 ml @ 20 mls/hr CONTINUOUS IV Last administered on 10:32; Start 10/23/16 at 20:00; Stop 10/25/16 at 20:01; Status DC Propofol (Diprivan 200 Mg/20 ml Inj) 130 mg STK-MED ONCE IV ; Start 10/24/16 at 08:53; Stop 10/24/16 at 10:11; Status DC Potassium Chloride 100 ml @ 50 mls/hr Q2H PRN IV For Potassium 2.8 - 3.2 mEq/ L Last administered on 11/03/16 05:17; Start 10/24/16 at 15:15; Stop 11/04/16 at 12:19; Status DC Potassium Chloride 100 ml @ 50 mls/hr Q2H PRN IV For Potassium 2.8 - 3.2 mEq/ L Last administered on 10/31/16 16:39; Start 10/24/16 at 15:15; Stop 11/04/16 at 12:19; Status DC Potassium Bicarb/ Potassium Chloride (K-Lyte Cl Eff) 50 meq UNSCH PRN PO For Potassium 3.3 - 3.5 mEq/L; Start 10/24/16 at 15:15; Stop 11/04/16 at 12:19; Status DC Potassium Chloride 100 ml @ 25 mls/hr UNSCH PRN IV For Potassium 3.3 - 3.5 mEq /L Last administered on 10/26/16 21:47; Start 10/24/16 at 15:15; Stop 11/04/16 at 12:19; Status DC Potassium Chloride 100 ml @ 50 mls/hr Q2H PRN IV For Potassium 3.3 - 3.5 mEq/L ; Start 10/24/16 at 15:15; Stop 11/04/16 at 12:19; Status DC Magnesium Sulfate 4 gm/Sodium Chloride 100 ml @ 50 mls/hr UNSCH PRN IV For Magnesium 0.9 - 1.1 mg/dL; Start 10/24/16 at 15:15; Stop 11/04/16 at 12:19; Status DC Magnesium Oxide (Mag-Ox) 800 mg UNSCH PRN PO For Magnesium 1.2 - 1.6 mg/dL; Start 10/24/16 at 15:15; Stop 11/04/16 at 12:19; Status DC Magnesium Sulfate 2 gm/Sodium Chloride 100 ml @ 50 mls/hr UNSCH PRN IV For Magnesium 1.2 - 1.6 mg/dL; Start 10/24/16 at 15:15; Stop 11/04/16 at 12:19; Status DC Potassium Phosphate (K-Phos) 2,000 mg Q4H PRN PO For Phosphorus < 2.5 mg/dL; Start 10/24/16 at 15:15; Stop 11/04/16 at 12:19; Status DC Sodium Phosphate 30 mmol/Sodium Chloride 250 ml @ 42 mls/hr UNSCH PRN IV For Phosphorus < 2.5 mg/dL; Start 10/24/16 at 15:15; Stop 11/04/16 at 12:19; Status DC Potassium Phosphate (K-Phos) 2,000 mg UNSCH PRN PO/TUBE SEE LABEL COMMENTS; Start 10/24/16 at 15:15; Stop 11/04/16 at 12:19; Status DC Potassium Phosphate 30 mmol/ Sodium Chloride 260 ml @ 42 mls/hr UNSCH PRN IV SEE LABEL COMMENTS; Start 10/24/16 at 15:15; Stop 12/05/16 at 10:20; Status DC Sodium Chloride 500 ml @ 10 mls/hr Q24H IV Last administered on 10/29/16 20: 54; Start 10/25/16 at 21:00; Stop 10/30/16 at 12:48; Status DC Cefepime HCl 2000 mg/Sodium Chloride 100 ml @ 200 mls/hr Q8HR IV Last administered on 11/06/16 05:05; Start 10/30/16 at 14:00; Stop 11/06/16 at 12:00; Status DC Fentanyl Citrate (fentaNYL INJ) 50 mcg Q3H PRN IV PAIN 1-10 Last administered on 11/05/16 05:07; Start 10/30/16 at 15:15; Stop 11/05/16 at 13:47; Status DC Docusate Sodium (Colace Liq) 100 mg Q12H G-TUBE Last administered on 11/03/16 17:00; Start 10/31/16 at 17:00; Stop 11/06/16 at 16:48; Status DC Potassium Chloride 100 ml @ 50 mls/hr Q2H PRN IV For Potassium 2.8 - 3.2 mEq/ L Last administered on 11/20/16 07:31; Start 11/03/16 at 05:15; Stop 12/05/16 at 10:20; Status DC Potassium Chloride 100 ml @ 50 mls/hr Q2H PRN IV For Potassium 2.8 - 3.2 mEq/ L Last administered on 11/29/16 06:01; Start 11/03/16 at 05:15; Stop 12/05/16 at 10:20; Status DC Potassium Bicarb/ Potassium Chloride (K-Lyte Cl Eff) 50 meq UNSCH PRN PO For Potassium 3.3 - 3.5 mEq/L Last administered on 11/22/16 07:07; Start 11/03/16 at 05:15; Stop 12/05/16 at 10:21; Status DC Potassium Chloride 100 ml @ 25 mls/hr UNSCH PRN IV For Potassium 3.3 - 3.5 mEq /L Last administered on 11/19/16 01:44; Start 11/03/16 at 05:15; Stop 12/05/16 at 10:21; Status DC Potassium Chloride 100 ml @ 50 mls/hr Q2H PRN IV For Potassium 3.3 - 3.5 mEq/ L Last administered on 11/25/16 08:51; Start 11/03/16 at 05:15; Stop 12/05/16 at 10:21; Status DC Magnesium Sulfate 4 gm/Sodium Chloride 100 ml @ 50 mls/hr UNSCH PRN IV For Magnesium 0.9 - 1.1 mg/dL; Start 11/03/16 at 05:15; Stop 12/05/16 at 10:21; Status DC Magnesium Oxide (Mag-Ox) 800 mg UNSCH PRN PO For Magnesium 1.2 - 1.6 mg/dL; Start 11/03/16 at 05:15; Stop 12/05/16 at 10:21; Status DC Magnesium Sulfate 2 gm/Sodium Chloride 100 ml @ 50 mls/hr UNSCH PRN IV For Magnesium 1.2 - 1.6 mg/dL; Start 11/03/16 at 05:15; Stop 12/05/16 at 10:21; Status DC Potassium Phosphate (K-Phos) 2,000 mg Q4H PRN PO For Phosphorus < 2.5 mg/dL; Start 11/03/16 at 05:15; Stop 12/05/16 at 10:22; Status DC Sodium Phosphate 30 mmol/Sodium Chloride 250 ml @ 42 mls/hr UNSCH PRN IV For Phosphorus < 2.5 mg/dL; Start 11/03/16 at 05:15; Stop 12/05/16 at 10:22; Status DC Potassium Phosphate (K-Phos) 2,000 mg UNSCH PRN PO/TUBE SEE LABEL COMMENTS; Start 11/03/16 at 05:15; Stop 12/05/16 at 10:22; Status DC Furosemide (Lasix Inj) 40 mg ONCE ONCE IV PUSH Last administered on 11/03/16 18:16; Start 11/03/16 at 18:15; Stop 11/03/16 at 18:16; Status DC Potassium Chloride 30 meq/ Sodium Chloride 115 ml @ 38.333 mls/ hr Q3H IV- CENTRAL Last administered on 11/03/16 22:53; Start 11/03/16 at 20:00; Stop at 01:59; Status DC Labetalol HCl (Trandate) 100 mg Q8H PO Last administered on 04/19/17 05:34; Start 11/03/16 at 20:00 Hydralazine HCl (Apresoline) 50 mg Q12HR PO Last administered on 12/19/16 09: 01; Start 11/03/16 at 19:00; Stop 12/19/16 at 15:24; Status DC Amlodipine Besylate (Norvasc) 5 mg DAILY PO Last administered on 04/19/17 09: 26; Start 11/04/16 at 09:00 Nystatin (Mycostatin Powder) 1 applic TID TOPICAL Last administered on 18:00; Start 11/06/16 at 09:00; Stop 02/12/17 at 09:42; Status DC Lactobacillus Acidophilus (Lactinex) 1 tab Q12HR PO Last administered on 09:17; Start 11/06/16 at 21:00; Stop 02/07/17 at 10:54; Status DC Quetiapine Fumarate (SEROquel) 25 mg BID@09,12 PO Last administered on 09:19; Start 11/07/16 at 09:00; Stop 01/30/17 at 11:56; Status DC Multi-Ingredient Mouthwash/Gargle (Magic Mouthwash Adult Liq) 5 ml QID SWISH- SWAL Last administered on 11/16/16 13:00; Start 11/06/16 at 18:00; Stop at 17:59; Status DC Docusate Sodium (Colace Liq) 100 mg Q12H PRN G-TUBE constipation Last administered on 12/11/16 21:59; Start 11/06/16 at 17:00; Stop 02/12/17 at 00:02 ; Status DC Potassium Bicarbonate (Effer-K Eff) 25 meq DAILY PO Last administered on 09:00; Start 11/06/16 at 17:00; Stop 11/09/16 at 16:59; Status DC Diphenhydramine HCl (Benadryl Inj) 25 mg ONCE ONCE IV PUSH Last administered on 11/08/16 01:55; Start 11/08/16 at 01:45; Stop 11/08/16 at 01:46; Status DC Loperamide HCl (Imodium) 2 mg UNSCH PRN PO DIARRHEA Last administered on 12:57; Start 11/09/16 at 09:45 Diphenoxylate HCl/ Atropine (Lomotil Tab) 1 tab Q6H PRN PO severe diarrhea ; Start 11/09/16 at 09:45 Metronidazole (Flagyl) 500 mg Q8H PO Last administered on 11/30/16 09:28; Start 11/09/16 at 16:00; Stop 11/30/16 at 14:47; Status DC Thrombin (Thrombin Top Soln) 10,000 units STK-MED ONCE .ROUTE ; Start 11/10/16 at 08:31; Stop 11/10/16 at 08:32; Status DC Gelatin (Gelfoam 100 Top) 1 foam STK-MED ONCE .ROUTE ; Start 11/10/16 at 08:31; Stop 11/10/16 at 08:32; Status DC Potassium Bicarb/ Potassium Chloride (K-Lyte Cl Eff) 50 meq NOW ONCE NG Last administered on 11/15/16 20:42; Start 11/15/16 at 20:45; Stop 11/15/16 at 20:46 ; Status DC Potassium Chloride 100 ml @ 25 mls/hr Q4H IV Last administered on 11/16/16 01 :13; Start 11/15/16 at 21:00; Stop 11/16/16 at 04:59; Status DC Sodium Chloride (Sodium Chloride) 2 gm Q8HR PO Last administered on 11/21/16 13:21; Start 11/16/16 at 14:00; Stop 11/21/16 at 17:30; Status DC Diphenhydramine HCl (Benadryl Inj) 50 mg Q6H PRN IV ITCHING Last administered on 11/29/16 23:29; Start 11/16/16 at 23:00; Stop 12/20/16 at 17:44; Status DC Diphenhydramine HCl (Benadryl Inj) 50 mg STK-MED ONCE .ROUTE ; Start 11/16/16 at 22:55; Stop 11/16/16 at 22:56; Status DC Quetiapine Fumarate (SEROquel) 25 mg HS PO Last administered on 01/17/17 22:26 ; Start 11/20/16 at 21:00; Stop 01/19/17 at 12:17; Status DC Sodium Chloride (Sodium Chloride) 2 gm BID PO Last administered on 11/23/16 07 :28; Start 11/22/16 at 09:00; Stop 11/23/16 at 11:40; Status DC Potassium Chloride (KCl) 20 meq BID PO Last administered on 11/24/16 20:18; Start 11/23/16 at 09:00; Stop 11/25/16 at 14:47; Status DC Sodium Chloride (Sodium Chloride) 2 gm DAILY PO Last administered on 12/19/16 09:00; Start 11/24/16 at 09:00; Stop 12/19/16 at 15:24; Status DC Thrombin (Thrombin Top Soln) 10,000 units STK-MED ONCE .ROUTE Last administered on 11/24/16 15:50; Start 11/24/16 at 07:55; Stop 11/24/16 at 07:56 ; Status DC Gelatin (Gelfoam 100 Top) 1 foam STK-MED ONCE .ROUTE Last administered on 15:50; Start 11/24/16 at 07:56; Stop 11/24/16 at 07:57; Status DC Lidocaine/ Epinephrine (Xylocaine-Epi 1%-1:100,000 Inj) 50 ml STK-MED ONCE .ROUTE Last administered on 11/24/16 15:50; Start 11/24/16 at 07:56; Stop at 07:57; Status DC Gentamicin Sulfate (Gentamicin Inj) 240 mg STK-MED ONCE .ROUTE Last administered on 11/24/16 15:50; Start 11/24/16 at 07:56; Stop 11/24/16 at 07:57 ; Status DC Vancomycin HCl (Vancomycin Inj) 1,000 mg STK-MED ONCE .ROUTE Last administered on 11/24/16 15:40; Start 11/24/16 at 14:41; Stop 11/24/16 at 14:42; Status DC Sodium Chloride 250 ml @ As Directed STK-MED ONCE .ROUTE ; Start 11/24/16 at 14 :41; Stop 11/24/16 at 14:42; Status DC Fentanyl Citrate (fentaNYL INJ) 250 mcg STK-MED ONCE .ROUTE ; Start 11/24/16 at 17:28; Stop 11/24/16 at 17:29; Status DC Potassium Chloride/Sodium Chloride 1,000 ml @ 84 mls/hr [id number] IV Last administered on 11/24/16 20:52; Start 11/24/16 at 17:45; Stop 11/24/16 at 23:44 ; Status DC Miscellaneous Information ALL NURSING DEPARTME... UNSCH PRN .XX SEE LABEL COMMENTS; Start 11/24/16 at 18:15; Stop 11/25/16 at 18:14; Status DC Potassium Bicarb/ Potassium Chloride (K-Lyte Cl Eff) 25 meq Q12HR NG Last administered on 12/12/16 22:08; Start 11/25/16 at 21:00; Stop 12/13/16 at 08:26 ; Status DC Propofol (Diprivan 200 Mg/20 ml Inj) 200 mg STK-MED ONCE IV ; Start 11/24/16 at 14:31; Stop 11/29/16 at 14:34; Status DC Ephedrine Sulfate (ePHEDrine/NS 25 MG/5 ML SYR) 25 mg STK-MED ONCE IV ; Start at 14:31; Stop 11/29/16 at 14:34; Status DC Neostigmine Methylsulfate (Prostigmin Inj) 3 mg STK-MED ONCE IV ; Start at 14:31; Stop 11/29/16 at 14:34; Status DC Phenylephrine HCl (Neosynephrine/ NS 1000 Mcg/10ml Syr) 2,000 mcg STK-MED ONCE IV ; Start 11/24/16 at 14:31; Stop 11/29/16 at 14:34; Status DC Ondansetron HCl (Zofran Inj) 4 mg STK-MED ONCE IV PUSH ; Start 11/24/16 at 14:31 ; Stop 11/29/16 at 14:34; Status DC Vasopressin (Pitressin Inj) 20 units STK-MED ONCE IV ; Start 11/24/16 at 14:31; Stop 11/29/16 at 14:34; Status DC Potassium Bicarb/ Potassium Chloride (K-Lyte Cl Eff) 25 meq ONCE ONCE PO Last administered on 12/08/16 10:10; Start 12/08/16 at 08:00; Stop 12/08/16 at 08: 06; Status DC Lactulose (Lactulose Liq) 30 ml QID PRN PO high ammonia level; Start 12/09/16 at 13:45 Potassium Chloride (KCl) 20 meq ONCE ONCE PO Last administered on 12/12/16 13 :40; Start 12/12/16 at 12:30; Stop 12/12/16 at 12:31; Status DC Potassium Bicarb/ Potassium Chloride (K-Lyte Cl Eff) 50 meq Q12HR NG Last administered on 02/11/17 20:53; Start 12/13/16 at 09:00; Stop 02/12/17 at 00:03 ; Status DC Potassium Chloride (KCl) 30 meq ONCE ONCE PO Last administered on 12/14/16 08 :36; Start 12/14/16 at 07:45; Stop 12/14/16 at 07:52; Status DC Pantoprazole Sodium (Protonix) 40 mg DAILY PO Last administered on 04/19/17 09:26; Start 12/16/16 at 09:00 Fludrocortisone Acetate (Florinef) 0.2 mg DAILY PO Last administered on 08:51; Start 12/20/16 at 09:00; Stop 01/13/17 at 18:35; Status DC Diphenhydramine HCl (Benadryl) 50 mg Q6H PRN PO Itchiness. Last administered on 04/19/17 01:03; Start 12/20/16 at 17:45 Haloperidol Lactate (Haldol Inj) 5 mg ONCE ONCE IM Last administered on 22:52; Start 12/22/16 at 22:30; Stop 12/22/16 at 22:48; Status DC Fludrocortisone Acetate (Florinef) 0.2 mg Q48H PO Last administered on 08:15; Start 01/15/17 at 09:00; Stop 01/25/17 at 07:37; Status DC Quetiapine Fumarate (SEROquel) 50 mg HS PO Last administered on 01/29/17 20:15 ; Start 01/19/17 at 21:00; Stop 01/30/17 at 11:56; Status DC Haloperidol Lactate (Haldol Inj) 5 mg ONCE ONCE IM Last administered on 22:05; Start 01/19/17 at 22:00; Stop 01/19/17 at 22:01; Status DC Quetiapine Fumarate (SEROquel) 100 mg BID@,12 PO Last administered on 12:38; Start 01/30/17 at 12:00; Stop 02/23/17 at 12:59; Status DC Lactobacillus Acidophilus (Lactinex) 1 tab DAILY PO Last administered on 09:07; Start 02/08/17 at 09:00; Stop 02/12/17 at 07:39; Status DC Docusate Sodium (Colace) 100 mg Q12H PRN PO CONSTIPATION; Start 02/12/17 at 00: 15 Potassium Bicarb/ Potassium Chloride (K-Lyte Cl Eff) 50 meq Q12HR PO ; Start at 09:00; Stop 02/12/17 at 09:44; Status DC Albuterol/ Ipratropium (Duoneb Neb) 1 ampule Q4HR NEB PRN INH WHEEZING; Start 02/12/17 at 12:00 Potassium Chloride (KCl) 40 meq DAILY PO Last administered on 04/19/17 09:26 ; Start 02/13/17 at 09:00 Senna/Docusate Sodium (Tonie-Colace) 1 tab BID PO Last administered on 09:26; Start 02/18/17 at 09:30 Quetiapine Fumarate (SEROquel) 200 mg BID@09,12 PO Last administered on 09:26; Start 02/24/17 at 09:00 Haloperidol Lactate (Haldol Inj) 2 mg ONCE ONCE IM Last administered on 03:15; Start 02/27/17 at 03:15; Stop 02/27/17 at 03:16; Status DC Lactulose (Lactulose Liq) 30 ml DAILY PO Last administered on 04/19/17 09:26 ; Start 03/16/17 at 10:45 Haloperidol Lactate (Haldol Inj) 2 mg ONCE ONCE IM Last administered on 22:08; Start 03/18/17 at 20:00; Stop 03/18/17 at 20:01; Status DC Urinary Catheter: No Vascular Central Line Catheter: No A/P Problem List: (1) 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 ICD Code: I60.8 - Other nontraumatic subarachnoid hemorrhage Status: Acute (2) Hypertension ICD Code: I10 - Essential (primary) hypertension Status: Chronic (3) Major neurocognitive disorder due to vascular disease, without behavioral disturbance, severe ICD Code: F01.50 - Vascular dementia without behavioral disturbance Status: Acute (4) Intracranial hemorrhage ICD Code: I62.9 - Nontraumatic intracranial hemorrhage, unspecified Status: Resolved (5) Major neurocognitive disorder as late effect of traumatic brain injury with behavioral disturbance ICD Code: S06.9X9S - Unspecified intracranial injury with loss of consciousness of unspecified duration, sequela; F02.81 - Dementia in other diseases classified elsewhere with behavioral disturbance Status: Acute (6) Encephalopathy ICD Code: G93.40 - Encephalopathy, unspecified Status: Acute (7) Acute respiratory failure with hypoxia and hypercarbia ICD Code: J96.01 - Acute respiratory failure with hypoxia; J96.02 - Acute respiratory failure with hypercapnia Status: Acute Assessment and Plan Mr. Nunez is a 51 year old male who was brought to the hospital as a trauma alert due to head injury after he fell in the bathroom and hit his head. Patient was unresponsive for approximately 15 minutes by the time ambulance services arrived. His mentation waxed and waned with GCS ranging from [address] head indicated subarachnoid hemorrhage, acute. Intracranial hemorrhage, status post basilar artery coiling 10/05, Status post [employer] shunt on 11/24/2016 Chronic encephalopathy Hydrocephalus Cortical blindness - Neurology signed off. Neuropsychology following patient ultimately for discharge placement and assistance with recommendations. Per neuropsychology note, ongoing areas of concern include behavioral impulsivity, lack of insight and judgement. - Speech therapy recommends regular diet with thin liquids. Patient is eating well. PEG dc'd 01/08/17. - Continue Seroquel 100mg BID per psychiatry HTN - controlled - continue on Norvasc 5mg daily and Labetalol 100mg q8h Acute hypoxic hypercarbic respiratory failure, resolved - Tracheostomy 10/23/16, removed, old trach site healed. - Monitor respiratory status - stable on RA C. difficile colitis, resolved - Completed Flagyl on 10/23 - No diarrhea reported - off Lactinex RENAL INSUFFICIENCY APPEARS CHRONIC NOW DVT prophylaxis: SCDs, YOUSIF hose, Lovenox. Ambulation. GI prophylaxis: Protonix. Discussed with patient asked to increase water intake. AWAIT SAFE PLACEMENT Discharge Planning AWAIT SAFE PLACEMENT Problem Qualifiers (1) Hypertension: Christian Cain DO Apr 19, 2017 11:36
[2017-04-19 12:00] VITALS: BP 127/91; PULSE 95; RESP 18; TEMP 97.6; O2SAT 91
[2017-04-19 20:00] VITALS: BP 126/80; PULSE 91; RESP 20; TEMP 97.7; O2SAT 93
[2017-04-19] MEDS: ENOXAPARIN SODIUM 40 MG/0.4 ML SYRINGE SQ SCH (20:58)
[2017-04-20] VITALS: BP 119/85; PULSE 80; RESP 20; TEMP 97.9; O2SAT 94
[2017-04-20] MEDS: LABETALOL HCL 100 MG TAB PO SCH ×3 (05:01→20:23)
[2017-04-20 07:54] VITALS: BP 125/79; PULSE 79; RESP 20; TEMP 97.9; O2SAT 93
[2017-04-20] MEDS: POTASSIUM CHLORIDE 20 MEQ CONTROLLED RELEASE TAB PO SCH (08:15)
[2017-04-20] MEDS: amLODIPine BESYLATE 5 MG TAB PO SCH (08:15)
[2017-04-20] MEDS: QUEtiapine FUMARATE 100 MG TAB PO SCH ×2 (08:15→12:21)
[2017-04-20] MEDS: PRAVASTATIN SOD 40 MG TAB PO SCH (08:15)
[2017-04-20] MEDS: DOCUSATE SODIUM 50 MG/SENNA 8.6 MG TAB PO SCH ×2 (08:15→20:23)
[2017-04-20] MEDS: PANTOPRAZOLE SOD 40 MG DELAYED RELEASE TAB PO SCH (08:15)
[2017-04-20] MEDS: LACTULOSE SYRUP 20 GM/30 ML CUP PO SCH (08:15)
[2017-04-20 12:25] VITALS: BP 155/90; PULSE 95; RESP 20; TEMP 97.5; O2SAT 93
--- NOTE | 2017-04-20 15:31 | HHI.PR ---
Subjective Remarks Denies cp/sob. stable vital signs. Objective Vitals Vital Signs Date Time Temp Pulse Resp B/P (MAP) Pulse Ox O2 Delivery O2 Flow Rate FiO2 04/20/17 12:25 97.5 95 20 155/90 (111) 93 04/20/17 07:54 97.9 79 20 125/79 (94) 93 04/20/17 00:00 97.9 80 20 119/85 (96) 94 04/19/17 20:00 97.7 91 20 126/80 (95) 93 I/O 04/19/17 04/19/17 04/19/17 04/20/17 04/20/17 04/20/17 07:00 15:00 23:00 07:00 15:00 23:00 Intake Total 1000 ml Output Total 240 ml Balance 1000 ml -240 ml Intake Oral 1000 ml Output Urine Total 240 ml # Voids 4 3 4 # Bowel Movements 1 Imaging Last Impressions Chest X-Ray 02/18/17 0000 Signed Impressions: Service Date/Time: Saturday, February 18, 2017 10:51 - CONCLUSION: Diminished lung volumes. No infiltrate. Tyrese Raymond MD Abdomen X-Ray 02/18/17 0000 Signed Impressions: Service Date/Time: Saturday, February 18, 2017 10:56 - CONCLUSION: Unremarkable abdomen. Tyrese Raymond MD Gall Bladder Ultrasound 02/17/17 0000 Signed Impressions: Service Date/Time: Friday, February 17, 2017 17:45 - CONCLUSION: Mildly enlarged liver and small amount of gallbladder sludge. Tim Hammonds MD Head CT 12/09/16 0000 Signed Impressions: Service Date/Time: Friday, December 09, 2016 17:36 - CONCLUSION: 1. Right ventriculostomy tube remains in place with decrease in ventricular size since November 24. There is some encephalomalacia around the shunt and a probable small infarct in the left basal ganglia. No new hemorrhage or shift. Tip Harris MD Transcranial Doppler Study Complete 10/26/16 0700 Signed Impressions: Service Date/Time: Wednesday, October 26, 2016 08:20 - CONCLUSION: Minimal interval improvement with no evidence for vasospasm. Christian Song MD FACR Neck CTA 10/19/16 0000 Signed Impressions: Service Date/Time: Wednesday, October 19, 2016 14:19 - CONCLUSION: Negative for dissection or significant stenosis. Christian Song MD FACR Head CTA 10/19/16 0000 Signed Impressions: Service Date/Time: Wednesday, October 19, 2016 14:19 - CONCLUSION: 1. Interval development of significant vasospasm in the left MCA and SRI territories. 2. Mild vasospasm in the basilar artery.. Gume Mckeon MD Cerebral Arteriogram 10/19/16 0000 Signed Impressions: Service Date/Time: Wednesday, October 19, 2016 16:06 - CONCLUSION: 1. Vasospasm in the left MCA and SRI territories 2. Spasmolytic infusion, left internal carotid artery as above.. 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 Guem Mckeon MD Pelvis X-Ray 10/05/16109 Signed Impressions: Service Date/Time: Wednesday, October 05, 2016 01:22 - CONCLUSION: Unremarkable examination of the pelvis. Ruben Acuña Jr., MD Chest CT 10/05/16109 Signed Impressions: Service Date/Time: Wednesday, October 05, 2016 01:46 - CONCLUSION: 1. No acute intrathoracic abnormality. 2. Bibasilar atelectasis. 3. Cardiomegaly. 4. Prior granulomatous disease. Ruben Acuña Jr., MD Cervical Spine CT 10/05/16109 Signed Impressions: Service Date/Time: Wednesday, October 05, 2016 01:40 - CONCLUSION: 1. No fracture or dislocation. 2. Multilevel degenerative changes. Ruben Acuña Jr., MD Abdomen/Pelvis CT 10/05/16109 Signed Impressions: Service Date/Time: Wednesday, October 05, 2016 01:46 - CONCLUSION: 1. No acute trauma. 2. Rounded area of decreased density involving the pancreatic head. I cannot completely exclude pancreatic head mass. At some point MRI of the pancreas is suggested to further evaluate. 3. Focal area of poor enhancement involving the left kidney. This may relate to an area of parenchymal scarring. I cannot completely exclude a mass. This can be further assessed with MRI as well. Ruben Acuña Jr., MD Objective Remarks GENERAL: AAOx3 SKIN: Warm and dry. HEAD: Atraumatic. Normocephalic. EYES: Pupils equal and round. No scleral icterus. No injection or drainage. BLINDNESS-SEES SHADOWS ENT: No nasal bleeding or discharge. Mucous membranes pink and moist.TONGUE MIDLINE NECK: Trachea midline. No JVD. SUPPLE CARDIOVASCULAR: Regular rate and rhythm. S1, S2 NO S3 OR S4 RESPIRATORY: No accessory muscle use. Clear to auscultation. Breath sounds equal bilaterally. GASTROINTESTINAL: Abdomen soft, non-tender, nondistended. Hepatic and splenic margins not palpable. MUSCULOSKELETAL: Extremities without clubbing, cyanosis, or edema. No obvious deformities. NEUROLOGICAL: Awake and alert. No obvious cranial nerve deficits. Motor grossly within normal limits. 4 out of 5 muscle strength in the arms and legs. Normal speech. PSYCHIATRIC: INAppropriate mood and affect; insight and judgment Abnormal. Procedures 10/05/16 right frontal twist drill for ventriculostomy placement 10/20/16 arterial line placement 10/23/16 bedside percutaneous tracheostomy under direct bronchoscopic visualization 10/24/16 PEG tube placement at bedside Medications and IVs Current Medications Medications (Trade) Dose Ordered Sig/Nava Route Start Time Stop Time Status Last Admin (Tylenol) 650 mg Q6H PRN PO 10/05/16 02:45 04/04/17 20:54 (Zofran Inj) 4 mg Q6H PRN IV 10/05/16 02:45 11/27/16 23:26 Miscellaneous Information 1 Q361D XX 10/05/16 02:45 10/05/16 02:45 (Pravachol) 40 mg DAILY PO 10/05/16 09:00 04/20/17 08:15 (Lovenox Inj) 40 mg Q24H SQ 10/23/16 21:00 Future hold 04/20/17 20:24 (Trandate) 100 mg Q8H PO 11/03/16 20:00 04/20/17 20:23 (Norvasc) 5 mg DAILY PO 11/04/16 09:00 04/20/17 08:15 (Imodium) 2 mg UNSCH PRN PO 11/09/16 09:45 11/29/16 12:57 (Lomotil Tab) 1 tab Q6H PRN PO 11/09/16 09:45 (Lactulose Liq) 30 ml QID PRN PO 12/09/16 13:45 (Protonix) 40 mg DAILY PO 12/16/16 09:00 04/20/17 08:15 (Benadryl) 50 mg Q6H PRN PO 12/20/16 17:45 04/19/17 21:04 (Colace) 100 mg Q12H PRN PO 02/12/17 00:15 (Duoneb Neb) 1 ampule Q4HR NEB PRN INH 02/12/17 12:00 (KCl) 40 meq DAILY PO 02/13/17 09:00 04/20/17 08:15 (Tonie-Colace) 1 tab BID PO 02/18/17 09:30 04/20/17 20:23 (SEROquel) 200 mg BID@09,12 PO 02/24/17 09:00 04/20/17 12:21 (Lactulose Liq) 30 ml DAILY PO 03/16/17 10:45 04/20/17 08:15 A/P Problem List: (1) 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 ICD Code: I60.8 - Other nontraumatic subarachnoid hemorrhage Status: Resolved (2) Hypertension ICD Code: I10 - Essential (primary) hypertension Status: Chronic (3) Intracranial hemorrhage ICD Code: I62.9 - Nontraumatic intracranial hemorrhage, unspecified Status: Resolved (4) Major neurocognitive disorder as late effect of traumatic brain injury with behavioral disturbance ICD Code: S06.9X9S - Unspecified intracranial injury with loss of consciousness of unspecified duration, sequela; F02.81 - Dementia in other diseases classified elsewhere with behavioral disturbance Status: Chronic (5) Encephalopathy ICD Code: G93.40 - Encephalopathy, unspecified Status: Resolved (6) Acute respiratory failure with hypoxia and hypercarbia ICD Code: J96.01 - Acute respiratory failure with hypoxia; J96.02 - Acute respiratory failure with hypercapnia Status: Resolved Assessment and Plan Mr. Nunez is a 51 year old male who was brought to the hospital as a trauma alert due to head injury after he fell in the bathroom and hit his head. Patient was unresponsive for approximately 15 minutes by the time ambulance services arrived. His mentation waxed and waned with GCS ranging from [address] head indicated subarachnoid hemorrhage, acute. Intracranial hemorrhage, status post basilar artery coiling 4/5, Status post [employer] shunt on 11/24/2016 Chronic encephalopathy Hydrocephalus Cortical blindness - Neurology signed off. Neuropsychology following patient ultimately for discharge placement and assistance with recommendations. Per neuropsychology note, ongoing areas of concern include behavioral impulsivity, lack of insight and judgement. - Speech therapy recommends regular diet with thin liquids. Patient is eating well. PEG dc'd 01/08/17. - Continue Seroquel 100mg BID per psychiatry HTN - controlled - continue on Norvasc 5mg daily and Labetalol 100mg q8h Acute hypoxic hypercarbic respiratory failure, resolved - Tracheostomy 10/23/16, removed, old trach site healed. - Monitor respiratory status - stable on RA C. difficile colitis, resolved - Completed Flagyl on 10/23 - No diarrhea reported - off Lactinex JONH - Continue monitor BUN/Creatinine. - Possible CKD, encourage po intake. DVT prophylaxis: SCDs, YOUSIF han, Lovenox. Ambulation. GI prophylaxis: Protonix. Discharge Planning Awaiting safe placement. Problem Qualifiers (1) Hypertension: Urbano Marshall MD Apr 20, 2017 15:31
[2017-04-20 16:23] VITALS: BP 102/65; PULSE 94; RESP 20; TEMP 98; O2SAT 94
[2017-04-20 20:00] VITALS: BP 136/76; PULSE 83; RESP 20; TEMP 98.5; O2SAT 93
[2017-04-20] MEDS: ENOXAPARIN SODIUM 40 MG/0.4 ML SYRINGE SQ SCH (20:24)
[2017-04-21] VITALS: BP 126/74; PULSE 78; RESP 20; TEMP 97.5; O2SAT 93
[2017-04-21] MEDS: LABETALOL HCL 100 MG TAB PO SCH ×3 (03:32→20:00)
[2017-04-21 04:00] VITALS: BP 123/79; PULSE 72; RESP 18; TEMP 97.8; O2SAT 94
[2017-04-21 08:08] VITALS: BP 124/82; PULSE 80; RESP 20; TEMP 97.4; O2SAT 95
[2017-04-21] MEDS: QUEtiapine FUMARATE 100 MG TAB PO SCH ×2 (08:26→12:33)
[2017-04-21] MEDS: PANTOPRAZOLE SOD 40 MG DELAYED RELEASE TAB PO SCH (08:26)
[2017-04-21] MEDS: PRAVASTATIN SOD 40 MG TAB PO SCH (08:27)
[2017-04-21] MEDS: amLODIPine BESYLATE 5 MG TAB PO SCH (08:27)
[2017-04-21] MEDS: POTASSIUM CHLORIDE 20 MEQ CONTROLLED RELEASE TAB PO SCH (08:27)
[2017-04-21] MEDS: LACTULOSE SYRUP 20 GM/30 ML CUP PO SCH (08:28)
[2017-04-21] MEDS: DOCUSATE SODIUM 50 MG/SENNA 8.6 MG TAB PO SCH ×2 (08:28→21:00)
--- NOTE | 2017-04-21 11:27 | HHI.PR ---
Subjective Remarks Follow-up visit TBI, ICH, chronic encephalopathy. Patient seen and examined today laying in bed. States he went to [place], and got into trouble. When asked what was a trouble patient states "I have a hard time finding my way home." The he states "but I am okay, now." Denies pain or discomfort. Denies abdominal pain, cramping. Denies chest pain, palpitations. Denies fevers, chills. Objective Vitals Vital Signs Date Time Temp Pulse Resp B/P (MAP) Pulse Ox O2 Delivery O2 Flow Rate FiO2 04/21/17 08:08 97.4 80 20 124/82 (96) 95 04/21/17 04:00 97.8 72 18 123/79 (94) 94 04/21/17 00:00 97.5 78 20 126/74 (91) 93 04/20/17 20:00 98.5 83 20 136/76 (96) 93 04/20/17 16:23 98.0 94 20 102/65 (77) 94 04/20/17 12:25 97.5 95 20 155/90 (111) 93 I/O 04/20/17 04/20/17 04/20/17 04/21/17 04/21/17 04/21/17 07:00 15:00 23:00 07:00 15:00 23:00 Intake Total 960 ml Output Total 240 ml Balance -240 ml 960 ml Intake Oral 960 ml Output Urine Total 240 ml # Voids 4 2 2 Imaging Last Impressions Chest X-Ray 02/18/17 0000 Signed Impressions: Service Date/Time: Saturday, February 18, 2017 10:51 - CONCLUSION: Diminished lung volumes. No infiltrate. Tyrese Raymond MD Abdomen X-Ray 02/18/17 0000 Signed Impressions: Service Date/Time: Saturday, February 18, 2017 10:56 - CONCLUSION: Unremarkable abdomen. Tyrese Raymond MD Gall Bladder Ultrasound 02/17/17 0000 Signed Impressions: Service Date/Time: Friday, February 17, 2017 17:45 - CONCLUSION: Mildly enlarged liver and small amount of gallbladder sludge. Tim Hammonds MD Head CT 12/09/16 0000 Signed Impressions: Service Date/Time: Friday, December 09, 2016 17:36 - CONCLUSION: 1. Right ventriculostomy tube remains in place with decrease in ventricular size since November 24. There is some encephalomalacia around the shunt and a probable small infarct in the left basal ganglia. No new hemorrhage or shift. Tip Harris MD Transcranial Doppler Study Complete 10/26/16 0700 Signed Impressions: Service Date/Time: Wednesday, October 26, 2016 08:20 - CONCLUSION: Minimal interval improvement with no evidence for vasospasm. Christian Song MD FACR Neck CTA 10/19/16 0000 Signed Impressions: Service Date/Time: Wednesday, October 19, 2016 14:19 - CONCLUSION: Negative for dissection or significant stenosis. Christian Song MD FACR Head CTA 10/19/16 0000 Signed Impressions: Service Date/Time: Wednesday, October 19, 2016 14:19 - CONCLUSION: 1. Interval development of significant vasospasm in the left MCA and SRI territories. 2. Mild vasospasm in the basilar artery.. Gume Mckeon MD Cerebral Arteriogram 10/19/16 0000 Signed Impressions: Service Date/Time: Wednesday, October 19, 2016 16:06 - CONCLUSION: 1. Vasospasm in the left MCA and SRI territories 2. Spasmolytic infusion, left internal carotid artery as above.. 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 Gume Mckeon MD Pelvis X-Ray 10/05/16109 Signed Impressions: Service Date/Time: Wednesday, October 05, 2016 01:22 - CONCLUSION: Unremarkable examination of the pelvis. Ruben Acuña Jr., MD Chest CT 10/05/16109 Signed Impressions: Service Date/Time: Wednesday, October 05, 2016 01:46 - CONCLUSION: 1. No acute intrathoracic abnormality. 2. Bibasilar atelectasis. 3. Cardiomegaly. 4. Prior granulomatous disease. Ruben Acuña Jr., MD Cervical Spine CT 10/05/16109 Signed Impressions: Service Date/Time: Wednesday, October 05, 2016 01:40 - CONCLUSION: 1. No fracture or dislocation. 2. Multilevel degenerative changes. Ruben Acuña Jr., MD Abdomen/Pelvis CT 10/05/16 0110 Signed Impressions: Service Date/Time: Wednesday, October 05, 2016 01:46 - CONCLUSION: 1. No acute trauma. 2. Rounded area of decreased density involving the pancreatic head. I cannot completely exclude pancreatic head mass. At some point MRI of the pancreas is suggested to further evaluate. 3. Focal area of poor enhancement involving the left kidney. This may relate to an area of parenchymal scarring. I cannot completely exclude a mass. This can be further assessed with MRI as well. Ruben Acuña Jr., MD Objective Remarks GENERAL: This is a well-nourished, well-developed patient, in no apparent distress. SKIN: Warm and dry. HEENT: Normocephalic. Nonicteric. No injection or drainage. Nose without bleeding. Airway patent. NECK: Trachea midline. Supple. CARDIOVASCULAR: Regular rate and rhythm without murmurs, gallops, or rubs. RESPIRATORY: Clear to auscultation. Breath sounds equal bilaterally. No wheezes , rales, or rhonchi. GASTROINTESTINAL: Abdomen soft, non-tender, nondistended. Bowel Sounds normoactive x4.. MUSCULOSKELETAL: Extremities without clubbing, cyanosis, or edema. NEUROLOGICAL: Awake and alert. Oriented to person, confuse, periods of hallucination. Moves all extremities. Normal speech. 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 ICD Code: I60.8 - Other nontraumatic subarachnoid hemorrhage Status: Resolved (2) Hypertension ICD Code: I10 - Essential (primary) hypertension Status: Chronic (3) Intracranial hemorrhage ICD Code: I62.9 - Nontraumatic intracranial hemorrhage, unspecified Status: Resolved (4) Major neurocognitive disorder as late effect of traumatic brain injury with behavioral disturbance ICD Code: S06.9X9S - Unspecified intracranial injury with loss of consciousness of unspecified duration, sequela; F02.81 - Dementia in other diseases classified elsewhere with behavioral disturbance Status: Chronic (5) Encephalopathy ICD Code: G93.40 - Encephalopathy, unspecified Status: Resolved (6) Acute respiratory failure with hypoxia and hypercarbia ICD Code: J96.01 - Acute respiratory failure with hypoxia; J96.02 - Acute respiratory failure with hypercapnia Status: Resolved Assessment and Plan Mr. Nunez is a 51 year old male who was brought to the hospital as a trauma alert due to head injury after he fell in the bathroom and hit his head. Patient was unresponsive for approximately 15 minutes by the time ambulance services arrived. His mentation waxed and waned with GCS ranging from [address] head indicated subarachnoid hemorrhage, acute. Auditory hallucinations Visual hallucinations - Psychiatry consulted and recommends continued use of seroquel - Continues to have hallucinations but patients behavior has been much improved with seroquel use. - Continue to monitor with ADLs - Monitor for agitation and increased hallucinations. If increase hallucinations noted, will reconsult psychiatry. Intracranial hemorrhage, status post basilar artery coiling 10/05, Status post [employer] shunt on 11/24/2016 Chronic encephalopathy Hydrocephalus Cortical blindness - Neurology signed off. Neuropsychology following patient ultimately for discharge placement and assistance with recommendations. Per neuropsych note, ongoing areas of concern include behavioral impulsivity, lack of insight and judgement. - Speech therapy recommends regular diet with thin liquids, Patient is eating well. PEG dc'd 01/08/17. - Continue Seroquel 200mg BID per psychiatry - Continue with reorientation - Encourage daily activities Acute hypoxic hypercarbic respiratory failure, resolved - Tracheostomy 10/23/16, removed, old trach site healed. - Monitor respiratory status C. difficile colitis, resolved - Completed Flagyl on 10/23 - No diarrhea reported - off Lactinex DVT prophylaxis: Lovenox. Ambulation. GI prophylaxis: Protonix. Discussed with Patient and Dr. Robbins Discharge Planning Denied by select specialty due to not meeting medical criteria for long-term care. Discharge planning ongoing. CM continues to address funding and placement issue. Pending SSI. Transfer to [facility] when bed becomes available. Problem Qualifiers (1) Hypertension: Tenzin Bronson Apr 21, 2017 11:27
[2017-04-21 12:26] VITALS: BP 120/76; PULSE 83; RESP 19; TEMP 97.5; O2SAT 93
[2017-04-21 16:07] VITALS: BP 121/78; PULSE 92; RESP 20; TEMP 97.9; O2SAT 94
[2017-04-21 20:00] VITALS: BP 109/69; PULSE 84; RESP 20; TEMP 98.3; O2SAT 92
[2017-04-21] MEDS: ENOXAPARIN SODIUM 40 MG/0.4 ML SYRINGE SQ SCH (21:00)
[2017-04-22 00:29] VITALS: BP 124/79; PULSE 80; RESP 20; TEMP 97.8; O2SAT 93
[2017-04-22] MEDS: LABETALOL HCL 100 MG TAB PO SCH ×2 (04:00→12:22)
[2017-04-22 05:08] VITALS: BP 126/81; PULSE 73; RESP 20; TEMP 97.4; O2SAT 92
[2017-04-22 08:03] VITALS: BP 119/72; PULSE 71; RESP 18; TEMP 98.5; O2SAT 94
[2017-04-22] MEDS: amLODIPine BESYLATE 5 MG TAB PO SCH (08:36)
[2017-04-22] MEDS: PRAVASTATIN SOD 40 MG TAB PO SCH (08:36)
[2017-04-22] MEDS: DOCUSATE SODIUM 50 MG/SENNA 8.6 MG TAB PO SCH (08:36)
[2017-04-22] MEDS: POTASSIUM CHLORIDE 20 MEQ CONTROLLED RELEASE TAB PO SCH (08:36)
[2017-04-22] MEDS: PANTOPRAZOLE SOD 40 MG DELAYED RELEASE TAB PO SCH (08:37)
[2017-04-22] MEDS: LACTULOSE SYRUP 20 GM/30 ML CUP PO SCH (08:37)
[2017-04-22] MEDS: QUEtiapine FUMARATE 100 MG TAB PO SCH ×2 (08:37→12:23)
--- NOTE | 2017-04-22 09:14 | HHI.PR ---
Subjective Remarks Follow-up visit TBI, ICH, chronic encephalopathy. Patient seen and examined today laying in bed. Reports he is doing well. No medical issues or concern. Objective Vitals Vital Signs Date Time Temp Pulse Resp B/P (MAP) Pulse Ox O2 Delivery O2 Flow Rate FiO2 04/22/17 08:03 98.5 71 18 119/72 (88) 94 04/22/17 05:08 97.4 73 20 126/81 (96) 92 04/22/17 00:29 97.8 80 20 124/79 (94) 93 04/21/17 20:00 98.3 84 20 109/69 (82) 92 04/21/17 16:07 97.9 92 20 121/78 (92) 94 04/21/17 12:26 97.5 83 19 120/76 (91) 93 I/O 04/21/17 04/21/17 04/21/17 04/22/17 04/22/17 04/22/17 07:00 15:00 23:00 07:00 15:00 23:00 Intake Total 720 ml Balance 720 ml Intake Oral 720 ml # Voids 2 3 3 Imaging Last Impressions Chest X-Ray 02/18/17 0000 Signed Impressions: Service Date/Time: Saturday, February 18, 2017 10:51 - CONCLUSION: Diminished lung volumes. No infiltrate. Tyrese Raymond MD Abdomen X-Ray 02/18/17 0000 Signed Impressions: Service Date/Time: Saturday, February 18, 2017 10:56 - CONCLUSION: Unremarkable abdomen. Tyrese Raymond MD Gall Bladder Ultrasound 02/17/17 0000 Signed Impressions: Service Date/Time: Friday, February 17, 2017 17:45 - CONCLUSION: Mildly enlarged liver and small amount of gallbladder sludge. Tim Hammonds MD Head CT 12/09/16 0000 Signed Impressions: Service Date/Time: Friday, December 09, 2016 17:36 - CONCLUSION: 1. Right ventriculostomy tube remains in place with decrease in ventricular size since November 24. There is some encephalomalacia around the shunt and a probable small infarct in the left basal ganglia. No new hemorrhage or shift. Tip Harris MD Transcranial Doppler Study Complete 10/26/16 0700 Signed Impressions: Service Date/Time: Wednesday, October 26, 2016 08:20 - CONCLUSION: Minimal interval improvement with no evidence for vasospasm. Christian Song MD FACR Neck CTA 10/19/16 0000 Signed Impressions: Service Date/Time: Wednesday, October 19, 2016 14:19 - CONCLUSION: Negative for dissection or significant stenosis. Christian Song MD FACR Head CTA 10/19/16 0000 Signed Impressions: Service Date/Time: Wednesday, October 19, 2016 14:19 - CONCLUSION: 1. Interval development of significant vasospasm in the left MCA and SRI territories. 2. Mild vasospasm in the basilar artery.. Gume Mckeon MD Cerebral Arteriogram 10/19/16 0000 Signed Impressions: Service Date/Time: Wednesday, October 19, 2016 16:06 - CONCLUSION: 1. Vasospasm in the left MCA and SRI territories 2. Spasmolytic infusion, left internal carotid artery as above.. 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 Gume Mckeon MD Pelvis X-Ray 10/05/16109 Signed Impressions: Service Date/Time: Wednesday, October 05, 2016 01:22 - CONCLUSION: Unremarkable examination of the pelvis. Ruben Acuña Jr., MD Chest CT 10/05/16109 Signed Impressions: Service Date/Time: Wednesday, October 05, 2016 01:46 - CONCLUSION: 1. No acute intrathoracic abnormality. 2. Bibasilar atelectasis. 3. Cardiomegaly. 4. Prior granulomatous disease. Ruben Acuña Jr., MD Cervical Spine CT 10/05/16109 Signed Impressions: Service Date/Time: Wednesday, October 05, 2016 01:40 - CONCLUSION: 1. No fracture or dislocation. 2. Multilevel degenerative changes. Ruben Acuña Jr., MD Abdomen/Pelvis CT 10/05/16109 Signed Impressions: Service Date/Time: Wednesday, October 05, 2016 01:46 - CONCLUSION: 1. No acute trauma. 2. Rounded area of decreased density involving the pancreatic head. I cannot completely exclude pancreatic head mass. At some point MRI of the pancreas is suggested to further evaluate. 3. Focal area of poor enhancement involving the left kidney. This may relate to an area of parenchymal scarring. I cannot completely exclude a mass. This can be further assessed with MRI as well. Ruben Acuña Jr., MD Objective Remarks GENERAL: This is a well-nourished, well-developed patient, in no apparent distress. SKIN: Warm and dry. HEENT: Normocephalic. Nonicteric. No injection or drainage. Nose without bleeding. Airway patent. NECK: Trachea midline. Supple. CARDIOVASCULAR: Regular rate and rhythm without murmurs, gallops, or rubs. RESPIRATORY: Clear to auscultation. Breath sounds equal bilaterally. No wheezes , rales, or rhonchi. GASTROINTESTINAL: Abdomen soft, non-tender, nondistended. Bowel Sounds normoactive x4.. MUSCULOSKELETAL: Extremities without clubbing, cyanosis, or edema. NEUROLOGICAL: Awake and alert. Oriented to person, confuse, periods of hallucination. Moves all extremities. Normal speech. 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 ICD Code: I60.8 - Other nontraumatic subarachnoid hemorrhage Status: Resolved (2) Hypertension ICD Code: I10 - Essential (primary) hypertension Status: Chronic (3) Intracranial hemorrhage ICD Code: I62.9 - Nontraumatic intracranial hemorrhage, unspecified Status: Resolved (4) Major neurocognitive disorder as late effect of traumatic brain injury with behavioral disturbance ICD Code: S06.9X9S - Unspecified intracranial injury with loss of consciousness of unspecified duration, sequela; F02.81 - Dementia in other diseases classified elsewhere with behavioral disturbance Status: Chronic (5) Encephalopathy ICD Code: G93.40 - Encephalopathy, unspecified Status: Resolved (6) Acute respiratory failure with hypoxia and hypercarbia ICD Code: J96.01 - Acute respiratory failure with hypoxia; J96.02 - Acute respiratory failure with hypercapnia Status: Resolved Assessment and Plan Mr. Nunez is a 51 year old male who was brought to the hospital as a trauma alert due to head injury after he fell in the bathroom and hit his head. Patient was unresponsive for approximately 15 minutes by the time ambulance services arrived. His mentation waxed and waned with GCS ranging from [address] head indicated subarachnoid hemorrhage, acute. Auditory hallucinations Visual hallucinations - Psychiatry consulted and recommends continued use of seroquel - Continues to have hallucinations but patients behavior has been much improved with seroquel use. - Continue to monitor with ADLs - Monitor for agitation and increased hallucinations. If increase hallucinations noted, will reconsult psychiatry. - Behavior is improving. 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 Neuropsychology following patient ultimately for discharge placement and assistance with recommendations. Per neuropsych note, ongoing areas of concern include behavioral impulsivity, lack of insight and judgement. - Speech therapy recommends regular diet with thin liquids, Patient is eating well. PEG dc'd 01/08/17. - Continue Seroquel 200mg BID per psychiatry - Continue with reorientation - Encourage daily activities Acute hypoxic hypercarbic respiratory failure, resolved - Tracheostomy 10/23/16, removed, old trach site healed. - Monitor respiratory status C. difficile colitis, resolved - Completed Flagyl on 10/23 - No diarrhea reported - off Lactinex DVT prophylaxis: Lovenox. Ambulation. GI prophylaxis: Protonix. Discussed with Patient and Dr. Robbins Discharge Planning Denied by select specialty due to not meeting medical criteria for long-term care. Discharge planning ongoing. CM continues to address funding and placement issue. Pending SSI. Transfer to [place] when bed becomes available. Problem Qualifiers (1) Hypertension: Tenzin Bronson Apr 22, 2017 09:14
[2017-04-22 12:00] VITALS: BP 137/83; PULSE 77; RESP 18; TEMP 98; O2SAT 95
[2017-04-22 16:10] VITALS: BP 118/61; PULSE 72; RESP 18; TEMP 98.7; O2SAT 94
[2017-04-22 20:15] VITALS: BP 120/88; PULSE 80; RESP 18; TEMP 97.9; O2SAT 95
[2017-04-23] MEDS: LABETALOL HCL 100 MG TAB PO SCH ×4 (00:36→20:10)
[2017-04-23] MEDS: ENOXAPARIN SODIUM 40 MG/0.4 ML SYRINGE SQ SCH ×2 (00:36→20:09)
[2017-04-23] MEDS: DOCUSATE SODIUM 50 MG/SENNA 8.6 MG TAB PO SCH ×3 (00:36→20:09)
[2017-04-23 04:48] VITALS: BP 123/86; PULSE 91; RESP 17; TEMP 98.1; O2SAT 95
[2017-04-23 08:00] VITALS: BP 128/62; PULSE 72; RESP 16; TEMP 97.4; O2SAT 94
[2017-04-23] MEDS: QUEtiapine FUMARATE 100 MG TAB PO SCH ×2 (09:00→12:00)
[2017-04-23] MEDS: LACTULOSE SYRUP 20 GM/30 ML CUP PO SCH (09:00)
[2017-04-23] MEDS: POTASSIUM CHLORIDE 20 MEQ CONTROLLED RELEASE TAB PO SCH (09:07)
[2017-04-23] MEDS: PRAVASTATIN SOD 40 MG TAB PO SCH (09:07)
[2017-04-23] MEDS: amLODIPine BESYLATE 5 MG TAB PO SCH (09:07)
[2017-04-23] MEDS: PANTOPRAZOLE SOD 40 MG DELAYED RELEASE TAB PO SCH (09:07)
[2017-04-23 12:00] VITALS: BP 106/68; PULSE 68; RESP 19; TEMP 98.1; O2SAT 94
--- NOTE | 2017-04-23 14:37 | HHI.PR ---
Subjective Remarks patient pleasantly confused but ff all commands ambulating steadily, good po intake no pain complains Objective Vitals Vital Signs Date Time Temp Pulse Resp B/P (MAP) Pulse Ox O2 Delivery O2 Flow Rate FiO2 04/23/17 12:00 98.1 68 19 106/68 (81) 94 04/23/17 08:00 97.4 72 16 128/62 (84) 94 04/23/17 04:48 98.1 91 17 123/86 (98) 95 04/22/17 20:15 97.9 80 18 120/88 (99) 95 04/22/17 16:10 98.7 72 18 118/61 (80) 94 I/O 04/22/17 04/22/17 04/22/17 04/23/17 04/23/17 04/23/17 06:59 14:59 22:59 06:59 14:59 22:59 Intake Total 960 ml 1000 ml 950 ml Balance 960 ml 1000 ml 950 ml Intake Oral 960 ml 1000 ml 950 ml # Voids 3 3 2 6 # Bowel Movements 0 0 0 Imaging Last Impressions Chest X-Ray 02/18/17 0000 Signed Impressions: Service Date/Time: Saturday, February 18, 2017 10:51 - CONCLUSION: Diminished lung volumes. No infiltrate. Tyrese Raymond MD Abdomen X-Ray 02/18/17 0000 Signed Impressions: Service Date/Time: Saturday, February 18, 2017 10:56 - CONCLUSION: Unremarkable abdomen. Tyrese Raymond MD Gall Bladder Ultrasound 02/17/17 0000 Signed Impressions: Service Date/Time: Friday, February 17, 2017 17:45 - CONCLUSION: Mildly enlarged liver and small amount of gallbladder sludge. Tim Hammonds MD Head CT 12/09/16 0000 Signed Impressions: Service Date/Time: Friday, December 09, 2016 17:36 - CONCLUSION: 1. Right ventriculostomy tube remains in place with decrease in ventricular size since November 24. There is some encephalomalacia around the shunt and a probable small infarct in the left basal ganglia. No new hemorrhage or shift. Tip Harris MD Transcranial Doppler Study Complete 10/26/16 0700 Signed Impressions: Service Date/Time: Wednesday, October 26, 2016 08:20 - CONCLUSION: Minimal interval improvement with no evidence for vasospasm. Christian Song MD FACR Neck CTA 10/19/16 0000 Signed Impressions: Service Date/Time: Wednesday, October 19, 2016 14:19 - CONCLUSION: Negative for dissection or significant stenosis. Christian Song MD FACR Head CTA 10/19/16 0000 Signed Impressions: Service Date/Time: Wednesday, October 19, 2016 14:19 - CONCLUSION: 1. Interval development of significant vasospasm in the left MCA and SRI territories. 2. Mild vasospasm in the basilar artery.. Gume Mckeon MD Cerebral Arteriogram 10/19/16 0000 Signed Impressions: Service Date/Time: Wednesday, October 19, 2016 16:06 - CONCLUSION: 1. Vasospasm in the left MCA and SRI territories 2. Spasmolytic infusion, left internal carotid artery as above.. 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 Gume Mckeon MD Pelvis X-Ray 10/05/16109 Signed Impressions: Service Date/Time: Wednesday, October 05, 2016 01:22 - CONCLUSION: Unremarkable examination of the pelvis. Ruben Acuña Jr., MD Chest CT 10/05/16109 Signed Impressions: Service Date/Time: Wednesday, October 05, 2016 01:46 - CONCLUSION: 1. No acute intrathoracic abnormality. 2. Bibasilar atelectasis. 3. Cardiomegaly. 4. Prior granulomatous disease. Ruben Acuña Jr., MD Cervical Spine CT 10/05/16109 Signed Impressions: Service Date/Time: Wednesday, October 05, 2016 01:40 - CONCLUSION: 1. No fracture or dislocation. 2. Multilevel degenerative changes. Ruben Acuña Jr., MD Abdomen/Pelvis CT 10/05/16109 Signed Impressions: Service Date/Time: Wednesday, October 05, 2016 01:46 - CONCLUSION: 1. No acute trauma. 2. Rounded area of decreased density involving the pancreatic head. I cannot completely exclude pancreatic head mass. At some point MRI of the pancreas is suggested to further evaluate. 3. Focal area of poor enhancement involving the left kidney. This may relate to an area of parenchymal scarring. I cannot completely exclude a mass. This can be further assessed with MRI as well. Ruben Acuña Jr., MD Objective Remarks awake and alert, oriented to person, speech soft but clear, cooperative no acute distress anicteric, vision impaired no nuchal rigidity lungs clear regular rhythm abdomen soft, nontender moves all extremities spontaneously, no calf swelling, no eema 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 ICD Code: I60.8 - Other nontraumatic subarachnoid hemorrhage Status: Resolved (2) Hypertension ICD Code: I10 - Essential (primary) hypertension Status: Chronic (3) Intracranial hemorrhage ICD Code: I62.9 - Nontraumatic intracranial hemorrhage, unspecified Status: Resolved (4) Major neurocognitive disorder as late effect of traumatic brain injury with behavioral disturbance ICD Code: S06.9X9S - Unspecified intracranial injury with loss of consciousness of unspecified duration, sequela; F02.81 - Dementia in other diseases classified elsewhere with behavioral disturbance Status: Chronic (5) Encephalopathy ICD Code: G93.40 - Encephalopathy, unspecified Status: Resolved (6) Acute respiratory failure with hypoxia and hypercarbia ICD Code: J96.01 - Acute respiratory failure with hypoxia; J96.02 - Acute respiratory failure with hypercapnia Status: Resolved Assessment and Plan Mr. Nunez is a 51 year old male who was brought to the hospital as a trauma alert due to head injury after he fell in the bathroom and hit his head. Patient was unresponsive for approximately 15 minutes by the time ambulance services arrived. His mentation waxed and waned with GCS ranging from [address] head indicated subarachnoid hemorrhage, acute. Auditory hallucinations Visual hallucinations - On seroquel - Continues to have hallucinations but patients behavior has been much improved with seroquel use. - Continue to monitor with ADLs - Monitor for agitation and increased hallucinations. If increase hallucinations noted, will reconsult psychiatry. - Behavior is improving. 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 Neuropsychology following patient ultimately for discharge placement and assistance with recommendations. Per neuropsych note, ongoing areas of concern include behavioral impulsivity, lack of insight and judgement. - Speech therapy recommends regular diet with thin liquids, Patient is eating well. PEG dc'd 01/08/17. - Continue Seroquel 200mg BID per psychiatry - Continue with reorientation - Encourage daily activities Acute hypoxic hypercarbic respiratory failure, resolved - Tracheostomy 10/23/16, removed, old trach site healed. - Monitor respiratory status C. difficile colitis, resolved - Completed Flagyl on 10/23 - No diarrhea reported - off Lactinex DVT prophylaxis: Lovenox. Ambulation. GI prophylaxis: Protonix. Discharge Planning Denied by select specialty due to not meeting medical criteria for long-term care. Discharge planning ongoing. CM continues to address funding and placement issue. Pending SSI. Transfer to [place] when bed becomes available. Problem Qualifiers (1) Hypertension: Kulwinder Giraldo MD Apr 23, 2017 14:37
[2017-04-23 16:00] VITALS: BP 128/65; PULSE 74; RESP 19; TEMP 98.7; O2SAT 94
[2017-04-23] MEDS: diphenhydrAMINE HCL 50 MG CAP PO PRN (20:09)
[2017-04-23 20:30] VITALS: BP 129/85; PULSE 81; RESP 17; TEMP 98.1; O2SAT 93
[2017-04-24 00:15] VITALS: BP 120/88; PULSE 74; RESP 18; TEMP 97.4; O2SAT 94
[2017-04-24] MEDS: diphenhydrAMINE HCL 50 MG CAP PO PRN ×2 (02:36→20:00)
[2017-04-24] MEDS: LABETALOL HCL 100 MG TAB PO SCH ×3 (03:16→20:00)
[2017-04-24 04:20] VITALS: BP 119/88; PULSE 67; RESP 18; TEMP 98.8; O2SAT 94
[2017-04-24] MEDS: LACTULOSE SYRUP 20 GM/30 ML CUP PO SCH (08:14)
[2017-04-24] MEDS: QUEtiapine FUMARATE 100 MG TAB PO SCH ×2 (08:15→12:32)
[2017-04-24] MEDS: PANTOPRAZOLE SOD 40 MG DELAYED RELEASE TAB PO SCH (08:15)
[2017-04-24] MEDS: POTASSIUM CHLORIDE 20 MEQ CONTROLLED RELEASE TAB PO SCH (08:15)
[2017-04-24] MEDS: DOCUSATE SODIUM 50 MG/SENNA 8.6 MG TAB PO SCH ×2 (08:16→20:00)
[2017-04-24] MEDS: PRAVASTATIN SOD 40 MG TAB PO SCH (08:16)
[2017-04-24] MEDS: amLODIPine BESYLATE 5 MG TAB PO SCH (08:16)
[2017-04-24 09:06] VITALS: BP 129/83; PULSE 68; RESP 18; TEMP 97.9; O2SAT 95
[2017-04-24 12:25] VITALS: BP 131/84; PULSE 79; RESP 18; TEMP 99; O2SAT 94
--- NOTE | 2017-04-24 13:15 | HHI.PR ---
Subjective Remarks no complains good po up and active Objective Vitals Vital Signs Date Time Temp Pulse Resp B/P (MAP) Pulse Ox O2 Delivery O2 Flow Rate FiO2 04/24/17 12:25 99.0 79 18 131/84 (100) 94 04/24/17 09:06 97.9 68 18 129/83 (98) 95 04/24/17 04:20 98.8 67 18 119/88 (98) 94 04/24/17 00:15 97.4 74 18 120/88 (99) 94 04/23/17 20:30 98.1 81 17 129/85 (100) 93 04/23/17 16:00 98.7 74 19 128/65 (86) 94 I/O 04/23/17 04/23/17 04/23/17 04/24/17 04/24/17 04/24/17 07:00 15:00 23:00 07:00 15:00 23:00 Intake Total 950 ml 560 ml 900 ml 1250 ml Balance 950 ml 560 ml 900 ml 1250 ml Intake Oral 950 ml 560 ml 900 ml 1250 ml # Voids 6 3 1 5 # Bowel Movements 0 1 0 0 Imaging Last Impressions Chest X-Ray 02/18/17 0000 Signed Impressions: Service Date/Time: Saturday, February 18, 2017 10:51 - CONCLUSION: Diminished lung volumes. No infiltrate. Tyrese Raymond MD Abdomen X-Ray 02/18/17 0000 Signed Impressions: Service Date/Time: Saturday, February 18, 2017 10:56 - CONCLUSION: Unremarkable abdomen. Tyrese Raymond MD Gall Bladder Ultrasound 02/17/17 0000 Signed Impressions: Service Date/Time: Friday, February 17, 2017 17:45 - CONCLUSION: Mildly enlarged liver and small amount of gallbladder sludge. Tim Hammonds MD Head CT 12/09/16 0000 Signed Impressions: Service Date/Time: Friday, December 09, 2016 17:36 - CONCLUSION: 1. Right ventriculostomy tube remains in place with decrease in ventricular size since November 24. There is some encephalomalacia around the shunt and a probable small infarct in the left basal ganglia. No new hemorrhage or shift. Tip Harris MD Transcranial Doppler Study Complete 10/26/16 0700 Signed Impressions: Service Date/Time: Wednesday, October 26, 2016 08:20 - CONCLUSION: Minimal interval improvement with no evidence for vasospasm. Christian Song MD FACR Neck CTA 10/19/16 0000 Signed Impressions: Service Date/Time: Wednesday, October 19, 2016 14:19 - CONCLUSION: Negative for dissection or significant stenosis. Christian Song MD FACR Head CTA 10/19/16 0000 Signed Impressions: Service Date/Time: Wednesday, October 19, 2016 14:19 - CONCLUSION: 1. Interval development of significant vasospasm in the left MCA and SRI territories. 2. Mild vasospasm in the basilar artery.. Gume Mckeon MD Cerebral Arteriogram 10/19/16 0000 Signed Impressions: Service Date/Time: Wednesday, October 19, 2016 16:06 - CONCLUSION: 1. Vasospasm in the left MCA and SRI territories 2. Spasmolytic infusion, left internal carotid artery as above.. 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 Gume Mckeon MD Pelvis X-Ray 10/05/16109 Signed Impressions: Service Date/Time: Wednesday, October 05, 2016 01:22 - CONCLUSION: Unremarkable examination of the pelvis. Ruben Acuña Jr., MD Chest CT 10/05/16109 Signed Impressions: Service Date/Time: Wednesday, October 05, 2016 01:46 - CONCLUSION: 1. No acute intrathoracic abnormality. 2. Bibasilar atelectasis. 3. Cardiomegaly. 4. Prior granulomatous disease. Ruben Acuña Jr., MD Cervical Spine CT 10/05/16109 Signed Impressions: Service Date/Time: Wednesday, October 05, 2016 01:40 - CONCLUSION: 1. No fracture or dislocation. 2. Multilevel degenerative changes. Ruben Acuña Jr., MD Abdomen/Pelvis CT 10/05/16109 Signed Impressions: Service Date/Time: Wednesday, October 05, 2016 01:46 - CONCLUSION: 1. No acute trauma. 2. Rounded area of decreased density involving the pancreatic head. I cannot completely exclude pancreatic head mass. At some point MRI of the pancreas is suggested to further evaluate. 3. Focal area of poor enhancement involving the left kidney. This may relate to an area of parenchymal scarring. I cannot completely exclude a mass. This can be further assessed with MRI as well. Ruben Acuña Jr., MD Objective Remarks awake and alert, oriented to person, speech clear, cooperative no acute distress anicteric, vision impaired no nuchal rigidity lungs clear regular rhythm abdomen soft, nontender moves all extremities spontaneously, no calf swelling, no edema 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 ICD Code: I60.8 - Other nontraumatic subarachnoid hemorrhage Status: Resolved (2) Hypertension ICD Code: I10 - Essential (primary) hypertension Status: Chronic (3) Intracranial hemorrhage ICD Code: I62.9 - Nontraumatic intracranial hemorrhage, unspecified Status: Resolved (4) Major neurocognitive disorder as late effect of traumatic brain injury with behavioral disturbance ICD Code: S06.9X9S - Unspecified intracranial injury with loss of consciousness of unspecified duration, sequela; F02.81 - Dementia in other diseases classified elsewhere with behavioral disturbance Status: Chronic (5) Encephalopathy ICD Code: G93.40 - Encephalopathy, unspecified Status: Resolved (6) Acute respiratory failure with hypoxia and hypercarbia ICD Code: J96.01 - Acute respiratory failure with hypoxia; J96.02 - Acute respiratory failure with hypercapnia Status: Resolved Assessment and Plan Mr. Nunez is a 51 year old male who was brought to the hospital as a trauma alert due to head injury after he fell in the bathroom and hit his head. Patient was unresponsive for approximately 15 minutes by the time ambulance services arrived. His mentation waxed and waned with GCS ranging from [address] head indicated subarachnoid hemorrhage, acute. Auditory hallucinations Visual hallucinations - On seroquel - Continues to have hallucinations but patients behavior has been much improved with seroquel use. - Continue to monitor with ADLs - Monitor for agitation and increased hallucinations. If increase hallucinations noted, will reconsult psychiatry. 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 Neuropsychology following patient ultimately for discharge placement and assistance with recommendations. Per neuropsych note, ongoing areas of concern include behavioral impulsivity, lack of insight and judgement. - Speech therapy recommends regular diet with thin liquids, Patient is eating well. PEG dc'd 01/08/17. - Continue Seroquel 200mg BID per psychiatry - Continue with reorientation - Encourage daily activities Acute hypoxic hypercarbic respiratory failure, resolved - Tracheostomy 10/23/16, removed, old trach site healed. - Monitor respiratory status C. difficile colitis, resolved - Completed Flagyl on 10/23 - No diarrhea reported - off Lactinex Renal insufficiency- creatinine stable DVT prophylaxis: Lovenox. Ambulation. GI prophylaxis: Protonix. Discharge Planning Denied by select specialty due to not meeting medical criteria for long-term care. Discharge planning ongoing. CM continues to address funding and placement issue. Pending SSI. Transfer to [place] when bed becomes available. Problem Qualifiers (1) Hypertension: Kulwinder Giraldo MD Apr 24, 2017 13:15
[2017-04-24 16:41] VITALS: BP 124/79; PULSE 65; RESP 16; TEMP 98.6; O2SAT 98
[2017-04-24] MEDS: ENOXAPARIN SODIUM 40 MG/0.4 ML SYRINGE SQ SCH (20:00)
[2017-04-24 20:12] VITALS: BP 121/72; PULSE 78; RESP 17; TEMP 97.8; O2SAT 94
[2017-04-25] VITALS (7 sets, daily range): BP systolic 121–134; BP diastolic 68–84; PULSE 63–93; RESP 16–20; TEMP 97.9–99; O2SAT 94–97
[2017-04-25] MEDS: LABETALOL HCL 100 MG TAB PO SCH ×3 (03:00→22:44)
[2017-04-25] MEDS: DOCUSATE SODIUM 50 MG/SENNA 8.6 MG TAB PO SCH ×2 (08:42→22:44)
[2017-04-25] MEDS: amLODIPine BESYLATE 5 MG TAB PO SCH (08:42)
[2017-04-25] MEDS: QUEtiapine FUMARATE 100 MG TAB PO SCH ×2 (08:42→12:41)
[2017-04-25] MEDS: PRAVASTATIN SOD 40 MG TAB PO SCH (08:42)
[2017-04-25] MEDS: PANTOPRAZOLE SOD 40 MG DELAYED RELEASE TAB PO SCH (08:42)
[2017-04-25] MEDS: POTASSIUM CHLORIDE 20 MEQ CONTROLLED RELEASE TAB PO SCH (08:43)
[2017-04-25] MEDS: LACTULOSE SYRUP 20 GM/30 ML CUP PO SCH (08:43)
--- NOTE | 2017-04-25 12:56 | HHI.PR ---
Subjective Remarks o complains good po 100% up and ambulating around- did this am - entire floor Objective Vitals Vital Signs Date Time Temp Pulse Resp B/P (MAP) Pulse Ox O2 Delivery O2 Flow Rate FiO2 04/25/17 12:33 98.8 83 16 132/82 (99) 95 04/25/17 08:12 98.0 77 16 133/84 (100) 97 04/25/17 04:23 98.4 63 17 122/78 (93) 94 04/25/17 00:41 98.6 77 17 121/68 (85) 94 04/24/17 20:12 97.8 78 17 121/72 (88) 94 04/24/17 16:41 98.6 65 16 124/79 (94) 98 I/O 04/24/17 04/24/17 04/24/17 04/25/17 04/25/17 04/25/17 07:00 15:00 23:00 07:00 15:00 23:00 Intake Total 1250 ml 480 ml 720 ml 240 ml Balance 1250 ml 480 ml 720 ml 240 ml Intake Oral 1250 ml 480 ml 720 ml 240 ml # Voids 5 3 5 2 # Bowel Movements 0 Imaging Last Impressions Chest X-Ray 02/18/17 0000 Signed Impressions: Service Date/Time: Saturday, February 18, 2017 10:51 - CONCLUSION: Diminished lung volumes. No infiltrate. Tyrese Raymond MD Abdomen X-Ray 02/18/17 0000 Signed Impressions: Service Date/Time: Saturday, February 18, 2017 10:56 - CONCLUSION: Unremarkable abdomen. Tyrese Raymond MD Gall Bladder Ultrasound 02/17/17 0000 Signed Impressions: Service Date/Time: Friday, February 17, 2017 17:45 - CONCLUSION: Mildly enlarged liver and small amount of gallbladder sludge. Tim Hammonds MD Head CT 12/09/16 0000 Signed Impressions: Service Date/Time: Friday, December 09, 2016 17:36 - CONCLUSION: 1. Right ventriculostomy tube remains in place with decrease in ventricular size since November 24. There is some encephalomalacia around the shunt and a probable small infarct in the left basal ganglia. No new hemorrhage or shift. Tip Harris MD Transcranial Doppler Study Complete 10/26/16 0700 Signed Impressions: Service Date/Time: Wednesday, October 26, 2016 08:20 - CONCLUSION: Minimal interval improvement with no evidence for vasospasm. Christian Song MD FACR Neck CTA 10/19/16 0000 Signed Impressions: Service Date/Time: Wednesday, October 19, 2016 14:19 - CONCLUSION: Negative for dissection or significant stenosis. Christian Song MD FACR Head CTA 10/19/16 0000 Signed Impressions: Service Date/Time: Wednesday, October 19, 2016 14:19 - CONCLUSION: 1. Interval development of significant vasospasm in the left MCA and SRI territories. 2. Mild vasospasm in the basilar artery.. Gume Mckeon MD Cerebral Arteriogram 10/19/16 0000 Signed Impressions: Service Date/Time: Wednesday, October 19, 2016 16:06 - CONCLUSION: 1. Vasospasm in the left MCA and SRI territories 2. Spasmolytic infusion, left internal carotid artery as above.. 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 Gume Mckeon MD Pelvis X-Ray 10/05/16109 Signed Impressions: Service Date/Time: Wednesday, October 05, 2016 01:22 - CONCLUSION: Unremarkable examination of the pelvis. Ruben Acuña Jr., MD Chest CT 10/05/16109 Signed Impressions: Service Date/Time: Wednesday, October 05, 2016 01:46 - CONCLUSION: 1. No acute intrathoracic abnormality. 2. Bibasilar atelectasis. 3. Cardiomegaly. 4. Prior granulomatous disease. Ruben Acuña Jr., MD Cervical Spine CT 10/05/16109 Signed Impressions: Service Date/Time: Wednesday, October 05, 2016 01:40 - CONCLUSION: 1. No fracture or dislocation. 2. Multilevel degenerative changes. Ruben Acuña Jr., MD Abdomen/Pelvis CT 10/05/16109 Signed Impressions: Service Date/Time: Wednesday, October 05, 2016 01:46 - CONCLUSION: 1. No acute trauma. 2. Rounded area of decreased density involving the pancreatic head. I cannot completely exclude pancreatic head mass. At some point MRI of the pancreas is suggested to further evaluate. 3. Focal area of poor enhancement involving the left kidney. This may relate to an area of parenchymal scarring. I cannot completely exclude a mass. This can be further assessed with MRI as well. Ruben Acuña Jr., MD Objective Remarks awake and alert, oriented to person, place speech clear, cooperative no acute distress anicteric, vision impaired no nuchal rigidity lungs clear regular rhythm abdomen soft, nontender moves all extremities spontaneously, no calf swelling, no edema 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 ICD Code: I60.8 - Other nontraumatic subarachnoid hemorrhage Status: Resolved (2) Hypertension ICD Code: I10 - Essential (primary) hypertension Status: Chronic (3) Intracranial hemorrhage ICD Code: I62.9 - Nontraumatic intracranial hemorrhage, unspecified Status: Resolved (4) Major neurocognitive disorder as late effect of traumatic brain injury with behavioral disturbance ICD Code: S06.9X9S - Unspecified intracranial injury with loss of consciousness of unspecified duration, sequela; F02.81 - Dementia in other diseases classified elsewhere with behavioral disturbance Status: Chronic (5) Encephalopathy ICD Code: G93.40 - Encephalopathy, unspecified Status: Resolved (6) Acute respiratory failure with hypoxia and hypercarbia ICD Code: J96.01 - Acute respiratory failure with hypoxia; J96.02 - Acute respiratory failure with hypercapnia Status: Resolved Assessment and Plan Mr. Nunez is a 51 year old male who was brought to the hospital as a trauma alert due to head injury after he fell in the bathroom and hit his head. Patient was unresponsive for approximately 15 minutes by the time ambulance services arrived. His mentation waxed and waned with GCS ranging from [address] head indicated subarachnoid hemorrhage, acute. Auditory hallucinations- improved Visual hallucinations - On seroquel - Continue to monitor with ADLs - Monitor for agitation and increased hallucinations. If increase hallucinations noted, will reconsult psychiatry. 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 Neuropsychology following patient ultimately for discharge placement and assistance with recommendations. Per neuropsych note, ongoing areas of concern include behavioral impulsivity, lack of insight and judgement. - Speech therapy recommends regular diet with thin liquids, Patient is eating well. PEG dc'd 01/08/17. - Continue Seroquel 200mg BID per psychiatry - Continue with reorientation - Encourage daily activities Acute hypoxic hypercarbic respiratory failure, resolved - Tracheostomy 10/23/16, removed, old trach site healed. - Monitor respiratory status C. difficile colitis, resolved - Completed Flagyl on 10/23 - No diarrhea reported - off Lactinex Renal insufficiency- creatinine stable DVT prophylaxis: Lovenox. Ambulation. GI prophylaxis: Protonix. Discharge Planning Denied by select specialty due to not meeting medical criteria for long-term care. Discharge planning ongoing. CM continues to address funding and placement issue. Pending SSI. Transfer to [place] when bed becomes available. Problem Qualifiers (1) Hypertension: Kulwinder Giraldo MD Apr 25, 2017 12:56
[2017-04-25] MEDS: ENOXAPARIN SODIUM 40 MG/0.4 ML SYRINGE SQ SCH (22:44)
[2017-04-26] MEDS: LABETALOL HCL 100 MG TAB PO SCH ×3 (04:15→21:03)
[2017-04-26 04:55] VITALS: BP 110/82; PULSE 86; RESP 16; TEMP 97.7; O2SAT 98
[2017-04-26 07:42] VITALS: BP 128/80; PULSE 74; RESP 20; TEMP 97.1; O2SAT 96
[2017-04-26] MEDS: POTASSIUM CHLORIDE 20 MEQ CONTROLLED RELEASE TAB PO SCH (08:58)
[2017-04-26] MEDS: PRAVASTATIN SOD 40 MG TAB PO SCH (08:58)
[2017-04-26] MEDS: DOCUSATE SODIUM 50 MG/SENNA 8.6 MG TAB PO SCH ×2 (08:58→21:03)
[2017-04-26] MEDS: QUEtiapine FUMARATE 100 MG TAB PO SCH ×2 (08:59→12:12)
[2017-04-26] MEDS: PANTOPRAZOLE SOD 40 MG DELAYED RELEASE TAB PO SCH (08:59)
[2017-04-26] MEDS: amLODIPine BESYLATE 5 MG TAB PO SCH (08:59)
[2017-04-26] MEDS: LACTULOSE SYRUP 20 GM/30 ML CUP PO SCH (08:59)
[2017-04-26 10:17] LABS: BICARBONATE 27.4 MEQ/L (21.0-32.0); CALCIUM 9.3 MG/DL (8.5-10.1); CREATININE 1.36 MG/DL (0.60-1.30)
--- NOTE | 2017-04-26 10:35 | HHI.PR ---
Subjective Remarks no complains, good po up and ambulated this am "I already did" confirmed by staff nurse but still needs to be motivated Objective Vitals Vital Signs Date Time Temp Pulse Resp B/P (MAP) Pulse Ox O2 Delivery O2 Flow Rate FiO2 04/26/17 07:42 97.1 74 20 128/80 (96) 96 04/26/17 04:55 97.7 86 16 110/82 (91) 98 04/25/17 23:15 97.9 90 16 134/71 (92) 95 04/25/17 20:01 98.1 93 16 132/81 (98) 96 04/25/17 16:09 99.0 85 20 128/83 (98) 94 04/25/17 12:33 98.8 83 16 132/82 (99) 95 I/O 04/25/17 04/25/17 04/25/17 04/26/17 04/26/17 04/26/17 07:00 15:00 23:00 07:00 15:00 23:00 Intake Total 240 ml 960 ml Balance 240 ml 960 ml Intake Oral 240 ml 960 ml # Voids 2 3 1 Result Diagram: 04/26/17 0825 Imaging Last Impressions Chest X-Ray 02/18/17 0000 Signed Impressions: Service Date/Time: Saturday, February 18, 2017 10:51 - CONCLUSION: Diminished lung volumes. No infiltrate. Tyrese Raymond MD Abdomen X-Ray 02/18/17 0000 Signed Impressions: Service Date/Time: Saturday, February 18, 2017 10:56 - CONCLUSION: Unremarkable abdomen. Tyrese Raymond MD Gall Bladder Ultrasound 02/17/17 0000 Signed Impressions: Service Date/Time: Friday, February 17, 2017 17:45 - CONCLUSION: Mildly enlarged liver and small amount of gallbladder sludge. Tim Hammonds MD Head CT 12/09/16 0000 Signed Impressions: Service Date/Time: Friday, December 09, 2016 17:36 - CONCLUSION: 1. Right ventriculostomy tube remains in place with decrease in ventricular size since November 24. There is some encephalomalacia around the shunt and a probable small infarct in the left basal ganglia. No new hemorrhage or shift. Tip Harris MD Transcranial Doppler Study Complete 10/26/16 0700 Signed Impressions: Service Date/Time: Wednesday, October 26, 2016 08:20 - CONCLUSION: Minimal interval improvement with no evidence for vasospasm. Christian Song MD FACR Neck CTA 10/19/16 0000 Signed Impressions: Service Date/Time: Wednesday, October 19, 2016 14:19 - CONCLUSION: Negative for dissection or significant stenosis. Christian Song MD FACR Head CTA 10/19/16 0000 Signed Impressions: Service Date/Time: Wednesday, October 19, 2016 14:19 - CONCLUSION: 1. Interval development of significant vasospasm in the left MCA and SIR territories. 2. Mild vasospasm in the basilar artery.. Gume Mckeon MD Cerebral Arteriogram 10/19/16 0000 Signed Impressions: Service Date/Time: Wednesday, October 19, 2016 16:06 - CONCLUSION: 1. Vasospasm in the left MCA and SRI territories 2. Spasmolytic infusion, left internal carotid artery as above.. 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 Gume Mckeon MD Pelvis X-Ray 10/05/16109 Signed Impressions: Service Date/Time: Wednesday, October 05, 2016 01:22 - CONCLUSION: Unremarkable examination of the pelvis. Ruben Acuña Jr., MD Chest CT 10/05/16109 Signed Impressions: Service Date/Time: Wednesday, October 05, 2016 01:46 - CONCLUSION: 1. No acute intrathoracic abnormality. 2. Bibasilar atelectasis. 3. Cardiomegaly. 4. Prior granulomatous disease. Ruben Acuña Jr., MD Cervical Spine CT 10/05/16109 Signed Impressions: Service Date/Time: Wednesday, October 05, 2016 01:40 - CONCLUSION: 1. No fracture or dislocation. 2. Multilevel degenerative changes. Ruben Acuña Jr., MD Abdomen/Pelvis CT 10/05/16109 Signed Impressions: Service Date/Time: Wednesday, October 05, 2016 01:46 - CONCLUSION: 1. No acute trauma. 2. Rounded area of decreased density involving the pancreatic head. I cannot completely exclude pancreatic head mass. At some point MRI of the pancreas is suggested to further evaluate. 3. Focal area of poor enhancement involving the left kidney. This may relate to an area of parenchymal scarring. I cannot completely exclude a mass. This can be further assessed with MRI as well. Ruben Acuña Jr., MD Objective Remarks awake and alert, oriented to person, place speech clear, cooperative no acute distress anicteric, no nuchal rigidity lungs clear moves all extremities spontaneously, no calf swelling, no edema 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 ICD Code: I60.8 - Other nontraumatic subarachnoid hemorrhage Status: Resolved (2) Hypertension ICD Code: I10 - Essential (primary) hypertension Status: Chronic (3) Intracranial hemorrhage ICD Code: I62.9 - Nontraumatic intracranial hemorrhage, unspecified Status: Resolved (4) Major neurocognitive disorder as late effect of traumatic brain injury with behavioral disturbance ICD Code: S06.9X9S - Unspecified intracranial injury with loss of consciousness of unspecified duration, sequela; F02.81 - Dementia in other diseases classified elsewhere with behavioral disturbance Status: Chronic (5) Encephalopathy ICD Code: G93.40 - Encephalopathy, unspecified Status: Resolved (6) Acute respiratory failure with hypoxia and hypercarbia ICD Code: J96.01 - Acute respiratory failure with hypoxia; J96.02 - Acute respiratory failure with hypercapnia Status: Resolved Assessment and Plan Mr. Nunez is a 51 year old male who was brought to the hospital as a trauma alert due to head injury after he fell in the bathroom and hit his head. Patient was unresponsive for approximately 15 minutes by the time ambulance services arrived. His mentation waxed and waned with GCS ranging from [address] head indicated subarachnoid hemorrhage, acute. Auditory hallucinations Visual hallucinations - On seroquel - Continues to have hallucinations but patients behavior has been much improved with seroquel use. - Continue to monitor with ADLs - Monitor for agitation and increased hallucinations. If increase hallucinations noted, will reconsult psychiatry. - Pleasant behavior Hypertension. stable . on amlodpine 5 mg daily and Labetalol 100 mg po q 8. 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 Neuropsychology following patient ultimately for discharge placement and assistance with recommendations. Per neuropsych note, ongoing areas of concern include behavioral impulsivity, lack of insight and judgement. - Speech therapy recommends regular diet with thin liquids, Patient is eating well. PEG dc'd 01/08/17. - Continue Seroquel 200mg BID per psychiatry - Continue with reorientation - Encourage daily activities Acute hypoxic hypercarbic respiratory failure, resolved - Tracheostomy 10/23/16, removed, old trach site healed. - Monitor respiratory status C. difficile colitis, resolved - Completed Flagyl on 10/23 - No diarrhea reported - off Lactinex Renal insufficiency- creatinine stable DVT prophylaxis: Lovenox. Ambulation. GI prophylaxis: Protonix. Discharge Planning Denied by select specialty due to not meeting medical criteria for long-term care. Discharge planning ongoing. CM continues to address funding and placement issue. Pending SSI. Transfer to [facility] when bed becomes available. Problem Qualifiers (1) Hypertension: Kulwinder Giraldo MD Apr 26, 2017 10:35
[2017-04-26 11:31] VITALS: BP 122/80; PULSE 92; RESP 20; TEMP 98.2; O2SAT 95
[2017-04-26 15:57] VITALS: BP 105/63; PULSE 84; RESP 20; TEMP 97.8; O2SAT 92
[2017-04-26 20:14] VITALS: BP 112/79; PULSE 87; RESP 16; TEMP 98.4; O2SAT 93
[2017-04-26] MEDS: ENOXAPARIN SODIUM 40 MG/0.4 ML SYRINGE SQ SCH (21:03)
[2017-04-27 04:00] VITALS: BP 118/75; PULSE 73; RESP 16; TEMP 98.3; O2SAT 94
[2017-04-27] MEDS: LABETALOL HCL 100 MG TAB PO SCH ×2 (04:55→20:35)
[2017-04-27 08:05] VITALS: BP 127/72; PULSE 75; RESP 20; TEMP 98.9; O2SAT 94
[2017-04-27] MEDS: PANTOPRAZOLE SOD 40 MG DELAYED RELEASE TAB PO SCH (08:20)
[2017-04-27] MEDS: LACTULOSE SYRUP 20 GM/30 ML CUP PO SCH (08:20)
[2017-04-27] MEDS: POTASSIUM CHLORIDE 20 MEQ CONTROLLED RELEASE TAB PO SCH (08:21)
[2017-04-27] MEDS: amLODIPine BESYLATE 5 MG TAB PO SCH (08:21)
[2017-04-27] MEDS: PRAVASTATIN SOD 40 MG TAB PO SCH (08:21)
[2017-04-27] MEDS: DOCUSATE SODIUM 50 MG/SENNA 8.6 MG TAB PO SCH ×2 (08:21→20:34)
[2017-04-27] MEDS: QUEtiapine FUMARATE 100 MG TAB PO SCH ×2 (08:24→11:39)
--- NOTE | 2017-04-27 10:18 | HHI.PR ---
Subjective Remarks no complains good po up and ambulating good BM Objective Vitals Vital Signs Date Time Temp Pulse Resp B/P (MAP) Pulse Ox O2 Delivery O2 Flow Rate FiO2 04/27/17 08:05 98.9 75 20 127/72 (90) 94 04/27/17 04:00 98.3 73 16 118/75 (89) 94 04/26/17 20:14 98.4 87 16 112/79 (90) 93 04/26/17 15:57 97.8 84 20 105/63 (77) 92 04/26/17 11:31 98.2 92 20 122/80 (94) 95 I/O 04/26/17 04/26/17 04/26/17 04/27/17 04/27/17 04/27/17 07:00 15:00 23:00 07:00 15:00 23:00 Intake Total 840 ml Balance 840 ml Intake Oral 840 ml # Voids 3 1 3 # Bowel Movements 0 Result Diagram: 04/26/17 0825 Objective Remarks awake and alert, oriented to person, place speech clear, cooperative no acute distress anicteric, no nuchal rigidity lungs clear moves all extremities spontaneously, no calf swelling, no edema gait steady 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 ICD Code: I60.8 - Other nontraumatic subarachnoid hemorrhage Status: Resolved (2) Hypertension ICD Code: I10 - Essential (primary) hypertension Status: Chronic (3) Intracranial hemorrhage ICD Code: I62.9 - Nontraumatic intracranial hemorrhage, unspecified Status: Resolved (4) Major neurocognitive disorder as late effect of traumatic brain injury with behavioral disturbance ICD Code: S06.9X9S - Unspecified intracranial injury with loss of consciousness of unspecified duration, sequela; F02.81 - Dementia in other diseases classified elsewhere with behavioral disturbance Status: Chronic (5) Encephalopathy ICD Code: G93.40 - Encephalopathy, unspecified Status: Resolved (6) Acute respiratory failure with hypoxia and hypercarbia ICD Code: J96.01 - Acute respiratory failure with hypoxia; J96.02 - Acute respiratory failure with hypercapnia Status: Resolved Assessment and Plan Mr. Nunez is a 51 year old male who was brought to the hospital as a trauma alert due to head injury after he fell in the bathroom and hit his head. Patient was unresponsive for approximately 15 minutes by the time ambulance services arrived. His mentation waxed and waned with GCS ranging from [address] head indicated subarachnoid hemorrhage, acute. Auditory hallucinations- none for a while Visual hallucinations - On seroquel - Continues to have hallucinations but patients behavior has been much improved with seroquel use. - Continue to monitor with ADLs - Monitor for agitation and increased hallucinations. If increase hallucinations noted, will reconsult psychiatry. 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 Neuropsychology following patient ultimately for discharge placement and assistance with recommendations. Per neuropsych note, ongoing areas of concern include behavioral impulsivity, lack of insight and judgement. - Speech therapy recommends regular diet with thin liquids, Patient is eating well. PEG dc'd 01/08/17. - Continue Seroquel 200mg BID per psychiatry - Continue with reorientation - Encourage daily activities HYpertension- stable on amlodipine 5 mg po daily decrease Labetalol to 100 mg po q 12 Acute hypoxic hypercarbic respiratory failure, resolved - Tracheostomy 10/23/16, removed, old trach site healed. - Monitor respiratory status C. difficile colitis, resolved - Completed Flagyl on 10/23 - No diarrhea reported - off Lactinex Renal insufficiency- creatinine stable DVT prophylaxis: Lovenox. Ambulation. GI prophylaxis: Protonix. Discharge Planning Denied by select specialty due to not meeting medical criteria for long-term care. Discharge planning ongoing. CM continues to address funding and placement issue. Pending SSI. Transfer to [place] when bed becomes available. Problem Qualifiers (1) Hypertension: Kulwinder Giraldo MD Apr 27, 2017 10:18
[2017-04-27 12:07] VITALS: BP 116/71; PULSE 100; RESP 20; TEMP 97.5; O2SAT 94
[2017-04-27 15:54] VITALS: BP 119/72; PULSE 94; RESP 20; TEMP 97.6; O2SAT 93
[2017-04-27 20:13] VITALS: BP 146/91; PULSE 77; RESP 16; TEMP 97.9; O2SAT 94
[2017-04-27] MEDS: ENOXAPARIN SODIUM 40 MG/0.4 ML SYRINGE SQ SCH (20:35)
[2017-04-28 04:08] VITALS: BP 138/92; PULSE 69; RESP 18; TEMP 97.9; O2SAT 93
[2017-04-28] MEDS: LACTULOSE SYRUP 20 GM/30 ML CUP PO SCH (07:24)
[2017-04-28] MEDS: PRAVASTATIN SOD 40 MG TAB PO SCH (07:24)
[2017-04-28] MEDS: PANTOPRAZOLE SOD 40 MG DELAYED RELEASE TAB PO SCH (07:24)
[2017-04-28] MEDS: LABETALOL HCL 100 MG TAB PO SCH ×2 (07:25→20:22)
[2017-04-28] MEDS: POTASSIUM CHLORIDE 20 MEQ CONTROLLED RELEASE TAB PO SCH (07:25)
[2017-04-28] MEDS: QUEtiapine FUMARATE 100 MG TAB PO SCH ×2 (07:25→11:28)
[2017-04-28] MEDS: DOCUSATE SODIUM 50 MG/SENNA 8.6 MG TAB PO SCH ×2 (07:25→20:22)
[2017-04-28] MEDS: amLODIPine BESYLATE 5 MG TAB PO SCH (07:25)
[2017-04-28 07:45] VITALS: BP 100/62; PULSE 75; RESP 20; TEMP 98; O2SAT 94
--- NOTE | 2017-04-28 11:03 | HHI.PR ---
Subjective Remarks no complain po 100% Objective Vitals Vital Signs Date Time Temp Pulse Resp B/P (MAP) Pulse Ox O2 Delivery O2 Flow Rate FiO2 04/28/17 07:45 98.0 75 20 100/62 (75) 94 04/28/17 04:08 97.9 69 18 138/92 (107) 93 04/27/17 20:13 97.9 77 16 146/91 (109) 94 04/27/17 15:54 97.6 94 20 119/72 (88) 93 04/27/17 12:07 97.5 100 20 116/71 (86) 94 I/O 04/27/17 04/27/17 04/27/17 04/28/17 04/28/17 04/28/17 07:00 15:00 23:00 07:00 15:00 23:00 Intake Total 900 ml Balance 900 ml Intake Oral 900 ml # Voids 3 4 2 # Bowel Movements 0 0 Result Diagram: 04/26/17 0825 Objective Remarks awake and alert, oriented to person, place speech clear, cooperative lungs clear moves all extremities spontaneously, no calf swelling, no edema gait steady 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 ICD Code: I60.8 - Other nontraumatic subarachnoid hemorrhage Status: Resolved (2) Hypertension ICD Code: I10 - Essential (primary) hypertension Status: Chronic (3) Intracranial hemorrhage ICD Code: I62.9 - Nontraumatic intracranial hemorrhage, unspecified Status: Resolved (4) Major neurocognitive disorder as late effect of traumatic brain injury with behavioral disturbance ICD Code: S06.9X9S - Unspecified intracranial injury with loss of consciousness of unspecified duration, sequela; F02.81 - Dementia in other diseases classified elsewhere with behavioral disturbance Status: Chronic (5) Encephalopathy ICD Code: G93.40 - Encephalopathy, unspecified Status: Resolved (6) Acute respiratory failure with hypoxia and hypercarbia ICD Code: J96.01 - Acute respiratory failure with hypoxia; J96.02 - Acute respiratory failure with hypercapnia Status: Resolved Assessment and Plan Mr. Nunez is a 51 year old male who was brought to the hospital as a trauma alert due to head injury after he fell in the bathroom and hit his head. Patient was unresponsive for approximately 15 minutes by the time ambulance services arrived. His mentation waxed and waned with GCS ranging from [address] head indicated subarachnoid hemorrhage, acute. Auditory hallucinations- improved Visual hallucinations- reoslved - On seroquel - Continues to have hallucinations but patients behavior has been much improved with seroquel use. - Continue to monitor with ADLs - Monitor for agitation and increased hallucinations. If increase hallucinations noted, will reconsult psychiatry. - Pleasant and cooperative Hypertension. stable . on amlodpine 5 mg daily and Labetalol 100 mg po q 8. 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 Neuropsychology following patient ultimately for discharge placement and assistance with recommendations. Per neuropsych note, ongoing areas of concern include behavioral impulsivity, lack of insight and judgement. - Speech therapy recommends regular diet with thin liquids, Patient is eating well. PEG dc'd 01/08/17. - Continue Seroquel 200mg BID per psychiatry - Continue with reorientation - Encourage daily activities Acute hypoxic hypercarbic respiratory failure, resolved - Tracheostomy 10/23/16, removed, old trach site healed. - Monitor respiratory status C. difficile colitis, resolved - Completed Flagyl on 10/23 - No diarrhea reported - off Lactinex Renal insufficiency- creatinine stable DVT prophylaxis: Lovenox. Ambulation. GI prophylaxis: Protonix. Discharge Planning Denied by select specialty due to not meeting medical criteria for long-term care. Discharge planning ongoing. CM continues to address funding and placement issue. Pending SSI. Transfer to [place] when bed becomes available. Problem Qualifiers (1) Hypertension: Kulwinder Giraldo MD Apr 28, 2017 11:03
[2017-04-28 11:47] VITALS: BP 129/71; PULSE 83; RESP 20; TEMP 98.1; O2SAT 95
[2017-04-28 15:51] VITALS: BP 128/78; PULSE 87; RESP 20; TEMP 97.2; O2SAT 95
[2017-04-28 20:00] VITALS: BP 121/84; PULSE 91; RESP 18; TEMP 98.1; O2SAT 92
[2017-04-28] MEDS: ENOXAPARIN SODIUM 40 MG/0.4 ML SYRINGE SQ SCH (20:22)
[2017-04-29] VITALS: BP 124/78; PULSE 87; RESP 18; TEMP 98.2; O2SAT 93
[2017-04-29 04:00] VITALS: BP 127/78; PULSE 84; RESP 18; TEMP 98; O2SAT 95
[2017-04-29] MEDS: PRAVASTATIN SOD 40 MG TAB PO SCH (07:13)
[2017-04-29] MEDS: LABETALOL HCL 100 MG TAB PO SCH ×2 (07:13→22:49)
[2017-04-29] MEDS: amLODIPine BESYLATE 5 MG TAB PO SCH (07:13)
[2017-04-29] MEDS: PANTOPRAZOLE SOD 40 MG DELAYED RELEASE TAB PO SCH (07:13)
[2017-04-29] MEDS: DOCUSATE SODIUM 50 MG/SENNA 8.6 MG TAB PO SCH ×2 (07:13→22:51)
[2017-04-29] MEDS: LACTULOSE SYRUP 20 GM/30 ML CUP PO SCH (07:13)
[2017-04-29] MEDS: QUEtiapine FUMARATE 100 MG TAB PO SCH ×2 (07:13→11:07)
[2017-04-29] MEDS: POTASSIUM CHLORIDE 20 MEQ CONTROLLED RELEASE TAB PO SCH (07:14)
[2017-04-29 08:00] VITALS: BP 119/67; PULSE 85; RESP 18; TEMP 97.6; O2SAT 95
--- NOTE | 2017-04-29 11:20 | HHI.PR ---
Subjective Remarks pleasant and cooperative no complains good po Objective Vitals Vital Signs Date Time Temp Pulse Resp B/P (MAP) Pulse Ox O2 Delivery O2 Flow Rate FiO2 04/29/17 08:00 97.6 85 18 119/67 (84) 95 04/29/17 04:00 98.0 84 18 127/78 (94) 95 04/29/17 00:00 98.2 87 18 124/78 (93) 93 04/28/17 20:00 98.1 91 18 121/84 (96) 92 04/28/17 15:51 97.2 87 20 128/78 (95) 95 04/28/17 11:47 98.1 83 20 129/71 (90) 95 I/O 04/28/17 04/28/17 04/28/17 04/29/17 04/29/17 04/29/17 07:00 15:00 23:00 07:00 15:00 23:00 Intake Total 900 ml Balance 900 ml Intake Oral 900 ml # Voids 2 3 4 # Bowel Movements 0 0 Result Diagram: 04/26/17 0825 Objective Remarks awake and alert, oriented to person, place speech clear, cooperative lungs clear moves all extremities spontaneously, no calf swelling, no edema gait steady 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 ICD Code: I60.8 - Other nontraumatic subarachnoid hemorrhage Status: Resolved (2) Hypertension ICD Code: I10 - Essential (primary) hypertension Status: Chronic (3) Intracranial hemorrhage ICD Code: I62.9 - Nontraumatic intracranial hemorrhage, unspecified Status: Resolved (4) Major neurocognitive disorder as late effect of traumatic brain injury with behavioral disturbance ICD Code: S06.9X9S - Unspecified intracranial injury with loss of consciousness of unspecified duration, sequela; F02.81 - Dementia in other diseases classified elsewhere with behavioral disturbance Status: Chronic (5) Encephalopathy ICD Code: G93.40 - Encephalopathy, unspecified Status: Resolved (6) Acute respiratory failure with hypoxia and hypercarbia ICD Code: J96.01 - Acute respiratory failure with hypoxia; J96.02 - Acute respiratory failure with hypercapnia Status: Resolved Assessment and Plan Mr. Nunez is a 51 year old male who was brought to the hospital as a trauma alert due to head injury after he fell in the bathroom and hit his head. Patient was unresponsive for approximately 15 minutes by the time ambulance services arrived. His mentation waxed and waned with GCS ranging from [address] head indicated subarachnoid hemorrhage, acute. Auditory hallucinations- improved Visual hallucinations- reoslved - On seroquel - Continues to have hallucinations but patients behavior has been much improved with seroquel use. - Continue to monitor with ADLs - Monitor for agitation and increased hallucinations. If increase hallucinations noted, will reconsult psychiatry. - Pleasant and cooperative Hypertension. stable . on amlodpine 5 mg daily and Labetalol 100 mg po q 8. monitor Intracranial hemorrhage, status post basilar artery coiling 10/05, Status post STEAM TANK OPERATOR shunt on 11/24/2016 Chronic encephalopathy Hydrocephalus Cortical blindness - Neurology signed off. Neuropsychology following patient ultimately for discharge placement and assistance with recommendations. Per neuropsych note, ongoing areas of concern include behavioral impulsivity, lack of insight and judgement. - Speech therapy recommends regular diet with thin liquids, Patient is eating well. PEG dc'd 01/08/17. - Continue Seroquel 200mg BID per psychiatry - Continue with reorientation - Encourage daily activities Acute hypoxic hypercarbic respiratory failure, resolved - Tracheostomy 10/23/16, removed, old trach site healed. - Monitor respiratory status C. difficile colitis, resolved - Completed Flagyl on 10/23 - No diarrhea reported - off Lactinex Renal insufficiency- creatinine stable DVT prophylaxis: Lovenox. Ambulation. GI prophylaxis: Protonix. Discharge Planning Denied by select specialty due to not meeting medical criteria for long-term care. Discharge planning ongoing. CM continues to address funding and placement issue. Pending SSI. Transfer to [facility] when bed becomes available. Problem Qualifiers (1) Hypertension: Kulwinder Giraldo MD Apr 29, 2017 11:20
[2017-04-29 12:00] VITALS: BP 94/50; PULSE 84; RESP 18; TEMP 97.7; O2SAT 92
[2017-04-29 16:00] VITALS: BP 118/67; PULSE 102; RESP 18; TEMP 97.6; O2SAT 94
[2017-04-29 20:00] VITALS: BP 134/83; PULSE 51; RESP 20; TEMP 98.3; O2SAT 93
[2017-04-29] MEDS: ENOXAPARIN SODIUM 40 MG/0.4 ML SYRINGE SQ SCH (22:49)
[2017-04-30 02:10] VITALS: BP 100/56; PULSE 76; RESP 20; TEMP 97.4; O2SAT 92
[2017-04-30 04:54] VITALS: BP 118/75; PULSE 75; RESP 20; TEMP 97.7; O2SAT 94
[2017-04-30 08:11] VITALS: BP 123/83; PULSE 77; RESP 20; TEMP 97.4; O2SAT 95
[2017-04-30] MEDS: DOCUSATE SODIUM 50 MG/SENNA 8.6 MG TAB PO SCH ×2 (08:55→21:11)
[2017-04-30] MEDS: QUEtiapine FUMARATE 100 MG TAB PO SCH ×2 (08:55→11:34)
[2017-04-30] MEDS: amLODIPine BESYLATE 5 MG TAB PO SCH (08:55)
[2017-04-30] MEDS: LABETALOL HCL 100 MG TAB PO SCH ×2 (08:55→21:11)
[2017-04-30] MEDS: PANTOPRAZOLE SOD 40 MG DELAYED RELEASE TAB PO SCH (08:55)
[2017-04-30] MEDS: POTASSIUM CHLORIDE 20 MEQ CONTROLLED RELEASE TAB PO SCH (08:55)
[2017-04-30] MEDS: PRAVASTATIN SOD 40 MG TAB PO SCH (08:55)
[2017-04-30] MEDS: LACTULOSE SYRUP 20 GM/30 ML CUP PO SCH (08:55)
--- NOTE | 2017-04-30 11:29 | HHI.PR ---
Subjective Remarks no complains Objective Vitals Vital Signs Date Time Temp Pulse Resp B/P (MAP) Pulse Ox O2 Delivery O2 Flow Rate FiO2 04/30/17 08:11 97.4 77 20 123/83 (96) 95 04/30/17 04:54 97.7 75 20 118/75 (89) 94 04/30/17 02:10 97.4 76 20 100/56 (71) 92 04/29/17 20:00 98.3 51 20 134/83 (100) 93 04/29/17 16:00 97.6 102 18 118/67 (84) 94 04/29/17 12:00 97.7 84 18 94/50 (65) 92 I/O 04/29/17 04/29/17 04/29/17 04/30/17 04/30/17 04/30/17 07:00 15:00 23:00 07:00 15:00 23:00 Intake Total 480 ml Balance 480 ml Intake Oral 480 ml # Voids 4 3 2 # Bowel Movements 0 Result Diagram: 04/26/17 0825 Objective Remarks awake and alert, oriented to person, place speech clear, cooperative lungs clear moves all extremities spontaneously, no calf swelling, no edema abdomen soft 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 ICD Code: I60.8 - Other nontraumatic subarachnoid hemorrhage Status: Resolved (2) Hypertension ICD Code: I10 - Essential (primary) hypertension Status: Chronic (3) Intracranial hemorrhage ICD Code: I62.9 - Nontraumatic intracranial hemorrhage, unspecified Status: Resolved (4) Major neurocognitive disorder as late effect of traumatic brain injury with behavioral disturbance ICD Code: S06.9X9S - Unspecified intracranial injury with loss of consciousness of unspecified duration, sequela; F02.81 - Dementia in other diseases classified elsewhere with behavioral disturbance Status: Chronic (5) Encephalopathy ICD Code: G93.40 - Encephalopathy, unspecified Status: Resolved (6) Acute respiratory failure with hypoxia and hypercarbia ICD Code: J96.01 - Acute respiratory failure with hypoxia; J96.02 - Acute respiratory failure with hypercapnia Status: Resolved Assessment and Plan Mr. Nunez is a 51 year old male who was brought to the hospital as a trauma alert due to head injury after he fell in the bathroom and hit his head. Patient was unresponsive for approximately 15 minutes by the time ambulance services arrived. His mentation waxed and waned with GCS ranging from [address] head indicated subarachnoid hemorrhage, acute. Auditory hallucinations- improved Visual hallucinations- reoslved - On seroquel - Continues to have hallucinations but patients behavior has been much improved with seroquel use. - Continue to monitor with ADLs - Monitor for agitation and increased hallucinations. If increase hallucinations noted, will reconsult psychiatry. - Pleasant and cooperative Hypertension. stable . on amlodpine 5 mg daily and Labetalol 100 mg po q 8. monitor Intracranial hemorrhage, status post basilar artery coiling 10/05, Status post CASH CONTROL SPECIALIST shunt on 11/24/2016 Chronic encephalopathy Hydrocephalus Cortical blindness - Neurology signed off. Neuropsychology following patient ultimately for discharge placement and assistance with recommendations. Per neuropsych note, ongoing areas of concern include behavioral impulsivity, lack of insight and judgement. - Speech therapy recommends regular diet with thin liquids, Patient is eating well. PEG dc'd 01/08/17. - Continue Seroquel 200mg BID per psychiatry - Continue with reorientation - Encourage daily activities Acute hypoxic hypercarbic respiratory failure, resolved - Tracheostomy 10/23/16, removed, old trach site healed. - Monitor respiratory status C. difficile colitis, resolved - Completed Flagyl on 10/23 - No diarrhea reported - off Lactinex Renal insufficiency- creatinine stable DVT prophylaxis: Lovenox. Ambulation. GI prophylaxis: Protonix. Discharge Planning Denied by select specialty due to not meeting medical criteria for long-term care. Discharge planning ongoing. CM continues to address funding and placement issue. Pending SSI. Transfer to [facility] when bed becomes available. Problem Qualifiers (1) Hypertension: Kulwinder Giraldo MD Apr 30, 2017 11:29
[2017-04-30 12:21] VITALS: BP 104/56; PULSE 86; RESP 20; TEMP 97.7; O2SAT 94
[2017-04-30 16:12] VITALS: BP 126/67; PULSE 79; RESP 20; TEMP 97.8; O2SAT 94
[2017-04-30 20:12] VITALS: BP 136/84; PULSE 92; RESP 20; TEMP 97.5; O2SAT 93
[2017-04-30] MEDS: ENOXAPARIN SODIUM 40 MG/0.4 ML SYRINGE SQ SCH (21:11)
[2017-05-01 00:41] VITALS: BP 126/83; PULSE 93; RESP 20; TEMP 97.9; O2SAT 93
[2017-05-01 04:43] VITALS: BP 132/84; PULSE 89; RESP 20; TEMP 98.2; O2SAT 93
[2017-05-01 08:08] VITALS: BP 127/88; PULSE 80; RESP 20; TEMP 98.3; O2SAT 94
--- NOTE | 2017-05-01 08:32 | HHI.PR ---
Subjective Remarks awake and alert no complains po 100% ambulating- states "cane will help" Objective Vitals Vital Signs Date Time Temp Pulse Resp B/P (MAP) Pulse Ox O2 Delivery O2 Flow Rate FiO2 05/01/17 08:08 98.3 80 20 127/88 (101) 94 05/01/17 04:43 98.2 89 20 132/84 (100) 93 05/01/17 00:41 97.9 93 20 126/83 (97) 93 04/30/17 20:12 97.5 92 20 136/84 (101) 93 04/30/17 16:12 97.8 79 20 126/67 (86) 94 04/30/17 12:21 97.7 86 20 104/56 (72) 94 I/O 04/30/17 04/30/17 04/30/17 05/01/17 05/01/17 05/01/17 07:00 15:00 23:00 07:00 15:00 23:00 Intake Total 600 ml Balance 600 ml Intake Oral 600 ml # Voids 2 3 3 # Bowel Movements 1 Imaging Last Impressions Chest X-Ray 02/18/17 0000 Signed Impressions: Service Date/Time: Saturday, February 18, 2017 10:51 - CONCLUSION: Diminished lung volumes. No infiltrate. Tyrese Raymond MD Abdomen X-Ray 02/18/17 0000 Signed Impressions: Service Date/Time: Saturday, February 18, 2017 10:56 - CONCLUSION: Unremarkable abdomen. Tyrese Raymond MD Gall Bladder Ultrasound 02/17/17 0000 Signed Impressions: Service Date/Time: Friday, February 17, 2017 17:45 - CONCLUSION: Mildly enlarged liver and small amount of gallbladder sludge. Tim Hammonds MD Head CT 12/09/16 0000 Signed Impressions: Service Date/Time: Friday, December 09, 2016 17:36 - CONCLUSION: 1. Right ventriculostomy tube remains in place with decrease in ventricular size since November 24. There is some encephalomalacia around the shunt and a probable small infarct in the left basal ganglia. No new hemorrhage or shift. Tip Harris MD Transcranial Doppler Study Complete 10/26/16 0700 Signed Impressions: Service Date/Time: Wednesday, October 26, 2016 08:20 - CONCLUSION: Minimal interval improvement with no evidence for vasospasm. Christian Song MD FACR Neck CTA 10/19/16 0000 Signed Impressions: Service Date/Time: Wednesday, October 19, 2016 14:19 - CONCLUSION: Negative for dissection or significant stenosis. Christian Song MD FACR Head CTA 10/19/16 0000 Signed Impressions: Service Date/Time: Wednesday, October 19, 2016 14:19 - CONCLUSION: 1. Interval development of significant vasospasm in the left MCA and SRI territories. 2. Mild vasospasm in the basilar artery.. Gume Mckeon MD Cerebral Arteriogram 10/19/16 0000 Signed Impressions: Service Date/Time: Wednesday, October 19, 2016 16:06 - CONCLUSION: 1. Vasospasm in the left MCA and SRI territories 2. Spasmolytic infusion, left internal carotid artery as above.. 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 Gume Mckeon MD Pelvis X-Ray 10/05/16109 Signed Impressions: Service Date/Time: Wednesday, October 05, 2016 01:22 - CONCLUSION: Unremarkable examination of the pelvis. Ruben Acuña Jr., MD Chest CT 10/05/16109 Signed Impressions: Service Date/Time: Wednesday, October 05, 2016 01:46 - CONCLUSION: 1. No acute intrathoracic abnormality. 2. Bibasilar atelectasis. 3. Cardiomegaly. 4. Prior granulomatous disease. Ruben Acuña Jr., MD Cervical Spine CT 10/05/16109 Signed Impressions: Service Date/Time: Wednesday, October 05, 2016 01:40 - CONCLUSION: 1. No fracture or dislocation. 2. Multilevel degenerative changes. Ruben Acuña Jr., MD Abdomen/Pelvis CT 10/05/16109 Signed Impressions: Service Date/Time: Wednesday, October 05, 2016 01:46 - CONCLUSION: 1. No acute trauma. 2. Rounded area of decreased density involving the pancreatic head. I cannot completely exclude pancreatic head mass. At some point MRI of the pancreas is suggested to further evaluate. 3. Focal area of poor enhancement involving the left kidney. This may relate to an area of parenchymal scarring. I cannot completely exclude a mass. This can be further assessed with MRI as well. Ruben Acuña Jr., MD Objective Remarks awake and alert, oriented to person, place speech clear, cooperative lungs clear regular rhythm abdomen soft, non tender moves all extremities spontaneously, no calf swelling, no edema 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 ICD Code: I60.8 - Other nontraumatic subarachnoid hemorrhage Status: Resolved (2) Hypertension ICD Code: I10 - Essential (primary) hypertension Status: Chronic (3) Intracranial hemorrhage ICD Code: I62.9 - Nontraumatic intracranial hemorrhage, unspecified Status: Resolved (4) Major neurocognitive disorder as late effect of traumatic brain injury with behavioral disturbance ICD Code: S06.9X9S - Unspecified intracranial injury with loss of consciousness of unspecified duration, sequela; F02.81 - Dementia in other diseases classified elsewhere with behavioral disturbance Status: Chronic (5) Encephalopathy ICD Code: G93.40 - Encephalopathy, unspecified Status: Resolved (6) Acute respiratory failure with hypoxia and hypercarbia ICD Code: J96.01 - Acute respiratory failure with hypoxia; J96.02 - Acute respiratory failure with hypercapnia Status: Resolved Assessment and Plan Mr. Nunez is a 51 year old male who was brought to the hospital as a trauma alert due to head injury after he fell in the bathroom and hit his head. Patient was unresponsive for approximately 15 minutes by the time ambulance services arrived. His mentation waxed and waned with GCS ranging from [address] head indicated subarachnoid hemorrhage, acute. Auditory hallucinations- improved Visual hallucinations- resolved - On seroquel - Continue to monitor with ADLs - Monitor for agitation and increased hallucinations. If increase hallucinations noted, will reconsult psychiatry. - Pleasant and cooperative Hypertension. stable . on amlodpine 5 mg daily and Labetalol 100 mg po q 12. monitor Intracranial hemorrhage, status post basilar artery coiling 10/05, Status post SHOTGUN SHELL LOADING MACHINE OPERATOR shunt on 11/24/2016 Chronic encephalopathy Hydrocephalus Cortical blindness - Neurology signed off. Neuropsychology following patient ultimately for discharge placement and assistance with recommendations. Per neuropsych note, ongoing areas of concern include behavioral impulsivity, lack of insight and judgement. - Speech therapy recommends regular diet with thin liquids, Patient is eating well. PEG dc'd 01/08/17. - Continue Seroquel 200mg BID per psychiatry - Continue with reorientation - Encourage daily activities Acute hypoxic hypercarbic respiratory failure, resolved - Tracheostomy 10/23/16, removed, old trach site healed. - Monitor respiratory status C. difficile colitis, resolved - Completed Flagyl on 10/23 - No diarrhea reported - off Lactinex Renal insufficiency- creatinine stable DVT prophylaxis: Lovenox. Ambulation. GI prophylaxis: Protonix. Discharge Planning Denied by select specialty due to not meeting medical criteria for long-term care. Discharge planning ongoing. CM continues to address funding and placement issue. Pending SSI. Transfer to [facility] when bed becomes available. Problem Qualifiers (1) Hypertension: Kulwinder Giraldo MD May 01, 2017 08:32
[2017-05-01] MEDS: POTASSIUM CHLORIDE 20 MEQ CONTROLLED RELEASE TAB PO SCH (09:11)
[2017-05-01] MEDS: LACTULOSE SYRUP 20 GM/30 ML CUP PO SCH (09:11)
[2017-05-01] MEDS: amLODIPine BESYLATE 5 MG TAB PO SCH (09:11)
[2017-05-01] MEDS: PANTOPRAZOLE SOD 40 MG DELAYED RELEASE TAB PO SCH (09:11)
[2017-05-01] MEDS: DOCUSATE SODIUM 50 MG/SENNA 8.6 MG TAB PO SCH ×2 (09:12→21:22)
[2017-05-01] MEDS: LABETALOL HCL 100 MG TAB PO SCH ×2 (09:12→21:23)
[2017-05-01] MEDS: PRAVASTATIN SOD 40 MG TAB PO SCH (09:12)
[2017-05-01] MEDS: QUEtiapine FUMARATE 100 MG TAB PO SCH ×2 (09:12→12:21)
[2017-05-01 12:20] VITALS: BP 107/75; PULSE 104; RESP 20; TEMP 98; O2SAT 94
[2017-05-01 16:07] VITALS: BP 127/84; PULSE 89; RESP 20; TEMP 97.7; O2SAT 94
[2017-05-01 20:32] VITALS: BP 115/73; PULSE 90; RESP 20; TEMP 97.5; O2SAT 95
[2017-05-01] MEDS: ENOXAPARIN SODIUM 40 MG/0.4 ML SYRINGE SQ SCH (21:22)
[2017-05-02 00:14] VITALS: BP 108/69; PULSE 79; RESP 19; TEMP 97.6; O2SAT 93
[2017-05-02 04:39] VITALS: BP 101/52; PULSE 64; RESP 20; TEMP 97.4; O2SAT 93
[2017-05-02 07:53] VITALS: BP 122/78; PULSE 78; RESP 19; TEMP 97.6; O2SAT 95
[2017-05-02] MEDS: amLODIPine BESYLATE 5 MG TAB PO SCH (08:10)
[2017-05-02] MEDS: QUEtiapine FUMARATE 100 MG TAB PO SCH ×2 (08:11→11:49)
[2017-05-02] MEDS: PANTOPRAZOLE SOD 40 MG DELAYED RELEASE TAB PO SCH (08:12)
[2017-05-02] MEDS: LABETALOL HCL 100 MG TAB PO SCH ×2 (08:12→21:19)
[2017-05-02] MEDS: DOCUSATE SODIUM 50 MG/SENNA 8.6 MG TAB PO SCH ×2 (08:12→21:19)
[2017-05-02] MEDS: POTASSIUM CHLORIDE 20 MEQ CONTROLLED RELEASE TAB PO SCH (08:12)
[2017-05-02] MEDS: PRAVASTATIN SOD 40 MG TAB PO SCH (08:12)
[2017-05-02] MEDS: LACTULOSE SYRUP 20 GM/30 ML CUP PO SCH (08:12)
--- NOTE | 2017-05-02 09:11 | HHI.PR ---
Subjective Remarks doing really well interactive and appropriate eating by himself up and ambulating on his own standby assist only during showers Objective Vitals Vital Signs Date Time Temp Pulse Resp B/P (MAP) Pulse Ox O2 Delivery O2 Flow Rate FiO2 05/02/17 07:53 97.6 78 19 122/78 (93) 95 05/02/17 04:39 97.4 64 20 101/52 (68) 93 05/02/17 00:14 97.6 79 19 108/69 (82) 93 05/01/17 20:32 97.5 90 20 115/73 (87) 95 05/01/17 16:07 97.7 89 20 127/84 (98) 94 05/01/17 12:20 98.0 104 20 107/75 (86) 94 I/O 05/01/17 05/01/17 05/01/17 05/02/17 05/02/17 05/02/17 07:00 15:00 23:00 07:00 15:00 23:00 Intake Total 820 ml Balance 820 ml Intake Oral 820 ml # Voids 3 3 2 # Bowel Movements 1 Imaging Last Impressions Chest X-Ray 02/18/17 0000 Signed Impressions: Service Date/Time: Saturday, February 18, 2017 10:51 - CONCLUSION: Diminished lung volumes. No infiltrate. Tyrese Raymond MD Abdomen X-Ray 02/18/17 0000 Signed Impressions: Service Date/Time: Saturday, February 18, 2017 10:56 - CONCLUSION: Unremarkable abdomen. Tyrese Raymond MD Gall Bladder Ultrasound 02/17/17 0000 Signed Impressions: Service Date/Time: Friday, February 17, 2017 17:45 - CONCLUSION: Mildly enlarged liver and small amount of gallbladder sludge. Tim Hammonds MD Head CT 12/09/16 0000 Signed Impressions: Service Date/Time: Friday, December 09, 2016 17:36 - CONCLUSION: 1. Right ventriculostomy tube remains in place with decrease in ventricular size since November 24. There is some encephalomalacia around the shunt and a probable small infarct in the left basal ganglia. No new hemorrhage or shift. Tip Harris MD Transcranial Doppler Study Complete 10/26/16 0700 Signed Impressions: Service Date/Time: Wednesday, October 26, 2016 08:20 - CONCLUSION: Minimal interval improvement with no evidence for vasospasm. Christian Song MD FACR Neck CTA 10/19/16 0000 Signed Impressions: Service Date/Time: Wednesday, October 19, 2016 14:19 - CONCLUSION: Negative for dissection or significant stenosis. Christian Song MD FACR Head CTA 10/19/16 0000 Signed Impressions: Service Date/Time: Wednesday, October 19, 2016 14:19 - CONCLUSION: 1. Interval development of significant vasospasm in the left MCA and SRI territories. 2. Mild vasospasm in the basilar artery.. Gume Mckeon MD Cerebral Arteriogram 10/19/16 0000 Signed Impressions: Service Date/Time: Wednesday, October 19, 2016 16:06 - CONCLUSION: 1. Vasospasm in the left MCA and SRI territories 2. Spasmolytic infusion, left internal carotid artery as above.. 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 Gume Mckeon MD Pelvis X-Ray 10/05/16109 Signed Impressions: Service Date/Time: Wednesday, October 05, 2016 01:22 - CONCLUSION: Unremarkable examination of the pelvis. Ruben Acuña Jr., MD Chest CT 10/05/16109 Signed Impressions: Service Date/Time: Wednesday, October 05, 2016 01:46 - CONCLUSION: 1. No acute intrathoracic abnormality. 2. Bibasilar atelectasis. 3. Cardiomegaly. 4. Prior granulomatous disease. Ruben Acuña Jr., MD Cervical Spine CT 10/05/16109 Signed Impressions: Service Date/Time: Wednesday, October 05, 2016 01:40 - CONCLUSION: 1. No fracture or dislocation. 2. Multilevel degenerative changes. Ruben Acuña Jr., MD Abdomen/Pelvis CT 10/05/16109 Signed Impressions: Service Date/Time: Wednesday, October 05, 2016 01:46 - CONCLUSION: 1. No acute trauma. 2. Rounded area of decreased density involving the pancreatic head. I cannot completely exclude pancreatic head mass. At some point MRI of the pancreas is suggested to further evaluate. 3. Focal area of poor enhancement involving the left kidney. This may relate to an area of parenchymal scarring. I cannot completely exclude a mass. This can be further assessed with MRI as well. Ruben Acuña Jr., MD Objective Remarks awake and alert, oriented to person, and place place speech clear, cooperative and interactive lungs clear regular rhythm abdomen soft, non tender moves all extremities spontaneously, no calf swelling, no edema 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 ICD Code: I60.8 - Other nontraumatic subarachnoid hemorrhage Status: Resolved (2) Hypertension ICD Code: I10 - Essential (primary) hypertension Status: Chronic (3) Intracranial hemorrhage ICD Code: I62.9 - Nontraumatic intracranial hemorrhage, unspecified Status: Resolved (4) Major neurocognitive disorder as late effect of traumatic brain injury with behavioral disturbance ICD Code: S06.9X9S - Unspecified intracranial injury with loss of consciousness of unspecified duration, sequela; F02.81 - Dementia in other diseases classified elsewhere with behavioral disturbance Status: Chronic (5) Encephalopathy ICD Code: G93.40 - Encephalopathy, unspecified Status: Resolved (6) Acute respiratory failure with hypoxia and hypercarbia ICD Code: J96.01 - Acute respiratory failure with hypoxia; J96.02 - Acute respiratory failure with hypercapnia Status: Resolved Assessment and Plan Mr. Nunez is a 51 year old male who was brought to the hospital as a trauma alert due to head injury after he fell in the bathroom and hit his head. Patient was unresponsive for approximately 15 minutes by the time ambulance services arrived. His mentation waxed and waned with GCS ranging from [address] head indicated subarachnoid hemorrhage, acute. Auditory hallucinations-REsolved Visual hallucinations- resolved - On seroquel - Continue to monitor with ADLs - Monitor for agitation and increased hallucinations. If increase hallucinations noted, will reconsult psychiatry. - Pleasant and cooperative Hypertension. stable . on amlodipine 5 mg daily and Labetalol 100 mg po q 12. monitor Intracranial hemorrhage, status post basilar artery coiling 10/05, Status post ANIMAL HUSBANDRY MANAGER shunt on 11/24/2016 Chronic encephalopathy Hydrocephalus Cortical blindness - Neurology signed off. Neuropsychology following patient ultimately for discharge placement and assistance with recommendations. Per neuropsych note, ongoing areas of concern include behavioral impulsivity , lack of insight and judgement. - Speech therapy recommends regular diet with thin liquids, Patient is eating well. PEG dc'd 01/08/17. - Continue Seroquel 200mg BID per psychiatry - Continue with reorientation - Encourage daily activities Acute hypoxic hypercarbic respiratory failure, resolved - Tracheostomy 10/23/16, removed, old trach site healed. - Monitor respiratory status C. difficile colitis, resolved - Completed Flagyl on 10/23 - No diarrhea reported - off Lactinex Renal insufficiency- creatinine stable DVT prophylaxis: Lovenox. Ambulation. GI prophylaxis: Protonix. Discharge Planning Denied by select specialty due to not meeting medical criteria for long-term care. Discharge planning ongoing. CM continues to address funding and placement issue. Pending SSI. Transfer to [facility] when bed becomes available. Problem Qualifiers (1) Hypertension: Kulwinder Giraldo MD May 02, 2017 09:11
[2017-05-02 12:02] VITALS: BP 122/72; PULSE 75; RESP 20; TEMP 98.1; O2SAT 75
[2017-05-02 16:05] VITALS: BP 110/76; PULSE 103; RESP 20; TEMP 97.7; O2SAT 93
[2017-05-02 20:00] VITALS: BP 116/70; PULSE 94; RESP 20; TEMP 98.5; O2SAT 94
[2017-05-02] MEDS: ENOXAPARIN SODIUM 40 MG/0.4 ML SYRINGE SQ SCH (21:20)
[2017-05-03 00:01] VITALS: BP 123/75; PULSE 79; RESP 20; TEMP 98.4; O2SAT 94
[2017-05-03 04:22] VITALS: BP 122/79; PULSE 79; RESP 20; TEMP 97.6; O2SAT 96
[2017-05-03 08:21] VITALS: BP 129/79; PULSE 76; RESP 19; TEMP 98.4; O2SAT 94
[2017-05-03] MEDS: amLODIPine BESYLATE 5 MG TAB PO SCH (08:41)
[2017-05-03] MEDS: LABETALOL HCL 100 MG TAB PO SCH ×2 (08:41→23:39)
[2017-05-03] MEDS: DOCUSATE SODIUM 50 MG/SENNA 8.6 MG TAB PO SCH ×2 (08:41→23:39)
[2017-05-03] MEDS: LACTULOSE SYRUP 20 GM/30 ML CUP PO SCH (08:41)
[2017-05-03] MEDS: QUEtiapine FUMARATE 100 MG TAB PO SCH ×2 (08:41→12:52)
[2017-05-03] MEDS: PANTOPRAZOLE SOD 40 MG DELAYED RELEASE TAB PO SCH (08:41)
[2017-05-03] MEDS: PRAVASTATIN SOD 40 MG TAB PO SCH (08:41)
[2017-05-03] MEDS: POTASSIUM CHLORIDE 20 MEQ CONTROLLED RELEASE TAB PO SCH (08:41)
--- NOTE | 2017-05-03 09:35 | HHI.PR ---
Subjective Remarks Follow-up visit TBI, ICH, chronic encephalopathy. Patient seen and examined today sitting in a chair. Reports he is doing well. States "he got rid of the night nurse and made her bloated." Denies chest pain, palpitations. Denies pain and discomfort. Denies SOB/ dyspnea. Denies fevers, chills, n/v/d. Objective Vitals Vital Signs Date Time Temp Pulse Resp B/P (MAP) Pulse Ox O2 Delivery O2 Flow Rate FiO2 05/03/17 08:21 98.4 76 19 129/79 (96) 94 05/03/17 04:22 97.6 79 20 122/79 (93) 96 05/03/17 00:01 98.4 79 20 123/75 (91) 94 05/02/17 20:00 98.5 94 20 116/70 (85) 94 05/02/17 16:05 97.7 103 20 110/76 (87) 93 05/02/17 12:02 98.1 75 20 122/72 (89) 75 I/O 05/02/17 05/02/17 05/02/17 05/03/17 05/03/17 05/03/17 07:00 15:00 23:00 07:00 15:00 23:00 Intake Total 600 ml Balance 600 ml Intake Oral 600 ml # Voids 2 2 2 # Bowel Movements 1 0 Imaging Last Impressions Chest X-Ray 02/18/17 0000 Signed Impressions: Service Date/Time: Saturday, February 18, 2017 10:51 - CONCLUSION: Diminished lung volumes. No infiltrate. Tyrese Raymond MD Abdomen X-Ray 02/18/17 0000 Signed Impressions: Service Date/Time: Saturday, February 18, 2017 10:56 - CONCLUSION: Unremarkable abdomen. Tyrese Raymond MD Gall Bladder Ultrasound 02/17/17 0000 Signed Impressions: Service Date/Time: Friday, February 17, 2017 17:45 - CONCLUSION: Mildly enlarged liver and small amount of gallbladder sludge. Tim Hammonds MD Head CT 12/09/16 0000 Signed Impressions: Service Date/Time: Friday, December 09, 2016 17:36 - CONCLUSION: 1. Right ventriculostomy tube remains in place with decrease in ventricular size since November 24. There is some encephalomalacia around the shunt and a probable small infarct in the left basal ganglia. No new hemorrhage or shift. Tip Harris MD Transcranial Doppler Study Complete 10/26/16 0700 Signed Impressions: Service Date/Time: Wednesday, October 26, 2016 08:20 - CONCLUSION: Minimal interval improvement with no evidence for vasospasm. Christian Song MD FACR Neck CTA 10/19/16 0000 Signed Impressions: Service Date/Time: Wednesday, October 19, 2016 14:19 - CONCLUSION: Negative for dissection or significant stenosis. Christian Song MD FACR Head CTA 10/19/16 0000 Signed Impressions: Service Date/Time: Wednesday, October 19, 2016 14:19 - CONCLUSION: 1. Interval development of significant vasospasm in the left MCA and SRI territories. 2. Mild vasospasm in the basilar artery.. Gume Mckeon MD Cerebral Arteriogram 10/19/16 0000 Signed Impressions: Service Date/Time: Wednesday, October 19, 2016 16:06 - CONCLUSION: 1. Vasospasm in the left MCA and SRI territories 2. Spasmolytic infusion, left internal carotid artery as above.. 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 Gume Mckeon MD Pelvis X-Ray 10/05/16109 Signed Impressions: Service Date/Time: Wednesday, October 05, 2016 01:22 - CONCLUSION: Unremarkable examination of the pelvis. Ruben Acuña Jr., MD Chest CT 10/05/16109 Signed Impressions: Service Date/Time: Wednesday, October 05, 2016 01:46 - CONCLUSION: 1. No acute intrathoracic abnormality. 2. Bibasilar atelectasis. 3. Cardiomegaly. 4. Prior granulomatous disease. Ruben Acuña Jr., MD Cervical Spine CT 10/05/16109 Signed Impressions: Service Date/Time: Wednesday, October 05, 2016 01:40 - CONCLUSION: 1. No fracture or dislocation. 2. Multilevel degenerative changes. Ruben Acuña Jr., MD Abdomen/Pelvis CT 10/05/16109 Signed Impressions: Service Date/Time: Wednesday, October 05, 2016 01:46 - CONCLUSION: 1. No acute trauma. 2. Rounded area of decreased density involving the pancreatic head. I cannot completely exclude pancreatic head mass. At some point MRI of the pancreas is suggested to further evaluate. 3. Focal area of poor enhancement involving the left kidney. This may relate to an area of parenchymal scarring. I cannot completely exclude a mass. This can be further assessed with MRI as well. Ruben Acuña Jr., MD Objective Remarks GENERAL: This is a well-nourished, well-developed patient, in no apparent distress. SKIN: Warm and dry. HEENT: Normocephalic. Nonicteric. No injection or drainage. Nose without bleeding. Airway patent. NECK: Trachea midline. Supple. CARDIOVASCULAR: Regular rate and rhythm without murmurs, gallops, or rubs. RESPIRATORY: Clear to auscultation. Breath sounds equal bilaterally. No wheezes , rales, or rhonchi. GASTROINTESTINAL: Abdomen soft, non-tender, nondistended. Bowel Sounds normoactive x4.. MUSCULOSKELETAL: Extremities without clubbing, cyanosis, or edema. NEUROLOGICAL: Awake and alert. Oriented to person, confuse, periods of hallucination. Moves all extremities. Normal speech. 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 ICD Code: I60.8 - Other nontraumatic subarachnoid hemorrhage Status: Resolved (2) Hypertension ICD Code: I10 - Essential (primary) hypertension Status: Chronic (3) Intracranial hemorrhage ICD Code: I62.9 - Nontraumatic intracranial hemorrhage, unspecified Status: Resolved (4) Major neurocognitive disorder as late effect of traumatic brain injury with behavioral disturbance ICD Code: S06.9X9S - Unspecified intracranial injury with loss of consciousness of unspecified duration, sequela; F02.81 - Dementia in other diseases classified elsewhere with behavioral disturbance Status: Chronic (5) Encephalopathy ICD Code: G93.40 - Encephalopathy, unspecified Status: Resolved (6) Acute respiratory failure with hypoxia and hypercarbia ICD Code: J96.01 - Acute respiratory failure with hypoxia; J96.02 - Acute respiratory failure with hypercapnia Status: Resolved Assessment and Plan Mr. Nunez is a 51 year old male who was brought to the hospital as a trauma alert due to head injury after he fell in the bathroom and hit his head. Patient was unresponsive for approximately 15 minutes by the time ambulance services arrived. His mentation waxed and waned with GCS ranging from [address] head indicated subarachnoid hemorrhage, acute. Auditory hallucinations Visual hallucinations - Psychiatry consulted and recommends continued use of seroquel - Continues to have hallucinations but patients behavior has been much improved with seroquel use. - Continue to monitor with ADLs - Monitor for agitation and increased hallucinations. If increase hallucinations noted, will reconsult psychiatry. - Behavior is improving. 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 Neuropsychology following patient ultimately for discharge placement and assistance with recommendations. Per neuropsych note, ongoing areas of concern include behavioral impulsivity, lack of insight and judgement. - Speech therapy recommends regular diet with thin liquids, Patient is eating well. PEG dc'd 01/08/17. - Continue Seroquel 200mg BID per psychiatry - Continue with reorientation - Encourage daily activities Acute hypoxic hypercarbic respiratory failure, resolved - Tracheostomy 10/23/16, removed, old trach site healed. - Monitor respiratory status C. difficile colitis, resolved - Completed Flagyl on 10/23 - No diarrhea reported - off Lactinex DVT prophylaxis: Lovenox. Ambulation. GI prophylaxis: Protonix. Discussed with Patient and Discharge Planning Pending Placement. Patient is [facility]. Problem Qualifiers (1) Hypertension: Tenzin Bronson May 03, 2017 09:35
[2017-05-03 12:21] VITALS: BP 110/61; PULSE 81; RESP 20; TEMP 97.4; O2SAT 94
[2017-05-03 16:11] VITALS: BP 117/73; PULSE 73; RESP 20; TEMP 97.3; O2SAT 96
[2017-05-03 20:19] VITALS: BP 137/85; PULSE 96; RESP 16; TEMP 98.3; O2SAT 96
[2017-05-03] MEDS: ENOXAPARIN SODIUM 40 MG/0.4 ML SYRINGE SQ SCH (23:39)
[2017-05-04 00:30] VITALS: BP 112/57; PULSE 80; RESP 17; TEMP 98.4; O2SAT 94
[2017-05-04 04:56] VITALS: BP 116/73; PULSE 77; RESP 17; TEMP 98.2; O2SAT 94
[2017-05-04 07:59] VITALS: BP 141/84; PULSE 77; RESP 20; TEMP 97.8; O2SAT 95
[2017-05-04] MEDS: PRAVASTATIN SOD 40 MG TAB PO SCH (08:45)
[2017-05-04] MEDS: QUEtiapine FUMARATE 100 MG TAB PO SCH ×2 (08:45→11:58)
[2017-05-04] MEDS: LABETALOL HCL 100 MG TAB PO SCH ×2 (08:45→21:53)
[2017-05-04] MEDS: LACTULOSE SYRUP 20 GM/30 ML CUP PO SCH (08:45)
[2017-05-04] MEDS: amLODIPine BESYLATE 5 MG TAB PO SCH (08:46)
[2017-05-04] MEDS: PANTOPRAZOLE SOD 40 MG DELAYED RELEASE TAB PO SCH (08:46)
[2017-05-04] MEDS: POTASSIUM CHLORIDE 20 MEQ CONTROLLED RELEASE TAB PO SCH (08:46)
[2017-05-04] MEDS: DOCUSATE SODIUM 50 MG/SENNA 8.6 MG TAB PO SCH ×2 (08:46→21:53)
[2017-05-04 11:58] VITALS: BP 125/63; PULSE 79; RESP 20; TEMP 97; O2SAT 95
[2017-05-04 16:08] VITALS: BP 122/69; PULSE 79; RESP 20; TEMP 98.5; O2SAT 94
--- NOTE | 2017-05-04 18:05 | HHI.PR ---
Subjective Remarks Follow up visit patient with TIB with ICH and chronic encephalopathy. Patient seen today in room asleep in no acute distress easily abusable. Cooperative able to follow simple commands, oriented to self and place. Denies pain, discomfort, chest pain, SOB, fever, chills, nausea or vomiting. Objective Vitals Vital Signs Date Time Temp Pulse Resp B/P (MAP) Pulse Ox O2 Delivery O2 Flow Rate FiO2 05/04/17 16:08 98.5 79 20 122/69 (86) 94 05/04/17 11:58 97.0 79 20 125/63 (83) 95 05/04/17 07:59 97.8 77 20 141/84 (103) 95 05/04/17 04:56 98.2 77 17 116/73 (87) 94 05/04/17 00:30 98.4 80 17 112/57 (75) 94 05/03/17 20:19 98.3 96 16 137/85 (102) 96 I/O 05/03/17 05/03/17 05/03/17 05/04/17 05/04/17 05/04/17 07:00 15:00 23:00 07:00 15:00 23:00 Intake Total 960 ml 840 ml 240 ml 960 ml Balance 960 ml 840 ml 240 ml 960 ml Intake Oral 960 ml 840 ml 240 ml 960 ml # Voids 2 3 4 2 4 # Bowel Movements 0 2 Imaging Last Impressions Chest X-Ray 02/18/17 0000 Signed Impressions: Service Date/Time: Saturday, February 18, 2017 10:51 - CONCLUSION: Diminished lung volumes. No infiltrate. Tyrese Raymond MD Abdomen X-Ray 02/18/17 0000 Signed Impressions: Service Date/Time: Saturday, February 18, 2017 10:56 - CONCLUSION: Unremarkable abdomen. Tyrese Raymond MD Gall Bladder Ultrasound 02/17/17 0000 Signed Impressions: Service Date/Time: Friday, February 17, 2017 17:45 - CONCLUSION: Mildly enlarged liver and small amount of gallbladder sludge. Tim Hammonds MD Head CT 12/09/16 0000 Signed Impressions: Service Date/Time: Friday, December 09, 2016 17:36 - CONCLUSION: 1. Right ventriculostomy tube remains in place with decrease in ventricular size since November 24. There is some encephalomalacia around the shunt and a probable small infarct in the left basal ganglia. No new hemorrhage or shift. Tip Harris MD Transcranial Doppler Study Complete 10/26/16 0700 Signed Impressions: Service Date/Time: Wednesday, October 26, 2016 08:20 - CONCLUSION: Minimal interval improvement with no evidence for vasospasm. Christian Song MD FACR Neck CTA 10/19/16 0000 Signed Impressions: Service Date/Time: Wednesday, October 19, 2016 14:19 - CONCLUSION: Negative for dissection or significant stenosis. Christian Song MD FACR Head CTA 10/19/16 0000 Signed Impressions: Service Date/Time: Wednesday, October 19, 2016 14:19 - CONCLUSION: 1. Interval development of significant vasospasm in the left MCA and SRI territories. 2. Mild vasospasm in the basilar artery.. Gume Mckeon MD Cerebral Arteriogram 10/19/16 0000 Signed Impressions: Service Date/Time: Wednesday, October 19, 2016 16:06 - CONCLUSION: 1. Vasospasm in the left MCA and SRI territories 2. Spasmolytic infusion, left internal carotid artery as above.. 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 Gume Mckeon MD Pelvis X-Ray 10/05/16109 Signed Impressions: Service Date/Time: Wednesday, October 05, 2016 01:22 - CONCLUSION: Unremarkable examination of the pelvis. Ruben Acuña Jr., MD Chest CT 10/05/16109 Signed Impressions: Service Date/Time: Wednesday, October 05, 2016 01:46 - CONCLUSION: 1. No acute intrathoracic abnormality. 2. Bibasilar atelectasis. 3. Cardiomegaly. 4. Prior granulomatous disease. Ruben Acuña Jr., MD Cervical Spine CT 10/05/16109 Signed Impressions: Service Date/Time: Wednesday, October 05, 2016 01:40 - CONCLUSION: 1. No fracture or dislocation. 2. Multilevel degenerative changes. Ruben Acuña Jr., MD Abdomen/Pelvis CT 10/05/16109 Signed Impressions: Service Date/Time: Wednesday, October 05, 2016 01:46 - CONCLUSION: 1. No acute trauma. 2. Rounded area of decreased density involving the pancreatic head. I cannot completely exclude pancreatic head mass. At some point MRI of the pancreas is suggested to further evaluate. 3. Focal area of poor enhancement involving the left kidney. This may relate to an area of parenchymal scarring. I cannot completely exclude a mass. This can be further assessed with MRI as well. Ruben Acuña Jr., MD Objective Remarks GENERAL: This is a well-nourished, well-developed patient, in no apparent distress, asleep in bed. SKIN: Warm and dry. HEENT: Normocephalic. Nonicteric. No injection or drainage. Nose without bleeding. NECK: Trachea midline. Supple. CARDIOVASCULAR: Regular rate and rhythm without murmurs, gallops, or rubs. RESPIRATORY: Clear to auscultation. Breath sounds equal bilaterally. No wheezes , rales, or rhonchi. GASTROINTESTINAL: Abdomen soft, non-tender, nondistended. Bowel Sounds normoactive x4.. MUSCULOSKELETAL: Extremities without clubbing, cyanosis, or edema. NEUROLOGICAL: Easily abusable. Oriented to person, and place confuse, periods of hallucination. Moves all extremities. Normal speech. 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 ICD Code: I60.8 - Other nontraumatic subarachnoid hemorrhage Status: Resolved (2) Hypertension ICD Code: I10 - Essential (primary) hypertension Status: Chronic (3) Intracranial hemorrhage ICD Code: I62.9 - Nontraumatic intracranial hemorrhage, unspecified Status: Resolved (4) Major neurocognitive disorder as late effect of traumatic brain injury with behavioral disturbance ICD Code: S06.9X9S - Unspecified intracranial injury with loss of consciousness of unspecified duration, sequela; F02.81 - Dementia in other diseases classified elsewhere with behavioral disturbance Status: Chronic (5) Encephalopathy ICD Code: G93.40 - Encephalopathy, unspecified Status: Resolved (6) Acute respiratory failure with hypoxia and hypercarbia ICD Code: J96.01 - Acute respiratory failure with hypoxia; J96.02 - Acute respiratory failure with hypercapnia Status: Resolved Assessment and Plan Mr. Nunez is a 51 year old male who was brought to the hospital as a trauma alert due to head injury after he fell in the bathroom and hit his head. Patient was unresponsive for approximately 15 minutes by the time ambulance services arrived. His mentation waxed and waned with GCS ranging from [address] head indicated subarachnoid hemorrhage, acute. Auditory hallucinations Visual hallucinations - Psychiatry consulted and recommends continued use of seroquel - Continues to have hallucinations but patients behavior has been much improved with seroquel use. - Continue to monitor with ADLs - Monitor for agitation and increased hallucinations. If increase hallucinations noted, will reconsult psychiatry. - Behavior is improving, calm when seen today. HTN, chronic - Continue amlodipine 5 mg daily, continue labetalol 100 mg every 12 hours - Stable. 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 Neuropsychology following patient ultimately for discharge placement and assistance with recommendations. Per neuropsych note, ongoing areas of concern include behavioral impulsivity, lack of insight and judgement. - Speech therapy recommends regular diet with thin liquids, Patient is eating well. PEG dc'd 01/08/17. - Continue Seroquel 200mg BID per psychiatry - Continue with reorientation - Encourage daily activities and up to chair. Acute hypoxic hypercarbic respiratory failure, resolved - Tracheostomy 10/23/16, removed, old trach site healed. - Monitor respiratory status C. difficile colitis, resolved - Completed Flagyl on 10/23 - No diarrhea reported - off Lactinex DVT prophylaxis: Lovenox. Ambulation. GI prophylaxis: Protonix. [facility], both are assessing payment. Case management following as there is an issue regarding child support deductions. Problem Qualifiers (1) Hypertension: Balbina Wilhelm May 04, 2017 18:05
[2017-05-04 20:00] VITALS: BP 123/70; PULSE 80; RESP 18; TEMP 97.9; O2SAT 95
[2017-05-04] MEDS: ENOXAPARIN SODIUM 40 MG/0.4 ML SYRINGE SQ SCH (21:54)
[2017-05-05 00:27] VITALS: BP 134/79; PULSE 81; RESP 20; TEMP 97.5; O2SAT 94
[2017-05-05 07:39] VITALS: BP 136/86; PULSE 72; RESP 20; TEMP 97.6; O2SAT 95
[2017-05-05] MEDS: amLODIPine BESYLATE 5 MG TAB PO SCH (08:41)
[2017-05-05] MEDS: LABETALOL HCL 100 MG TAB PO SCH ×2 (08:41→21:14)
[2017-05-05] MEDS: DOCUSATE SODIUM 50 MG/SENNA 8.6 MG TAB PO SCH ×2 (08:41→21:14)
[2017-05-05] MEDS: QUEtiapine FUMARATE 100 MG TAB PO SCH ×2 (08:41→11:10)
[2017-05-05] MEDS: PRAVASTATIN SOD 40 MG TAB PO SCH (08:41)
[2017-05-05] MEDS: PANTOPRAZOLE SOD 40 MG DELAYED RELEASE TAB PO SCH (08:41)
[2017-05-05] MEDS: LACTULOSE SYRUP 20 GM/30 ML CUP PO SCH (08:41)
[2017-05-05] MEDS: POTASSIUM CHLORIDE 20 MEQ CONTROLLED RELEASE TAB PO SCH (08:41)
[2017-05-05 11:10] VITALS: BP 117/74; PULSE 94; RESP 20; TEMP 97.5; O2SAT 95
--- NOTE | 2017-05-05 13:22 | HHI.PR ---
Subjective Remarks Follow up visit for patient with TBI, ICH and chronic encephalopathy. Patient seen in room in bed resting, awake watching TV. He is pleasant and oriented to self and place. States he "just got here" when I shared with him that we have found a rehab center to place him at. He denies any pain, SOB, chest pain, constipation, diarrhea, nausea, vomiting, fever or chills. Objective Vitals Vital Signs Date Time Temp Pulse Resp B/P (MAP) Pulse Ox O2 Delivery O2 Flow Rate FiO2 05/05/17 11:10 97.5 94 20 117/74 (88) 95 05/05/17 07:39 97.6 72 20 136/86 (103) 95 05/05/17 00:27 97.5 81 20 134/79 (97) 94 05/04/17 20:00 97.9 80 18 123/70 (87) 95 05/04/17 16:08 98.5 79 20 122/69 (86) 94 I/O 05/04/17 05/04/17 05/04/17 05/05/17 05/05/17 05/05/17 07:00 15:00 23:00 07:00 15:00 23:00 Intake Total 240 ml 1680 ml Balance 240 ml 1680 ml Intake Oral 240 ml 1680 ml # Voids 2 5 2 # Bowel Movements 0 0 Imaging Last Impressions Chest X-Ray 02/18/17 0000 Signed Impressions: Service Date/Time: Saturday, February 18, 2017 10:51 - CONCLUSION: Diminished lung volumes. No infiltrate. Tyrese Raymond MD Abdomen X-Ray 02/18/17 0000 Signed Impressions: Service Date/Time: Saturday, February 18, 2017 10:56 - CONCLUSION: Unremarkable abdomen. Tyrese Raymond MD Gall Bladder Ultrasound 02/17/17 0000 Signed Impressions: Service Date/Time: Friday, February 17, 2017 17:45 - CONCLUSION: Mildly enlarged liver and small amount of gallbladder sludge. Tim Hammonds MD Head CT 12/09/16 0000 Signed Impressions: Service Date/Time: Friday, December 09, 2016 17:36 - CONCLUSION: 1. Right ventriculostomy tube remains in place with decrease in ventricular size since November 24. There is some encephalomalacia around the shunt and a probable small infarct in the left basal ganglia. No new hemorrhage or shift. Tip Harris MD Transcranial Doppler Study Complete 10/26/16 0700 Signed Impressions: Service Date/Time: Wednesday, October 26, 2016 08:20 - CONCLUSION: Minimal interval improvement with no evidence for vasospasm. Christian Song MD FACR Neck CTA 10/19/16 0000 Signed Impressions: Service Date/Time: Wednesday, October 19, 2016 14:19 - CONCLUSION: Negative for dissection or significant stenosis. Christian Song MD FACR Head CTA 10/19/16 0000 Signed Impressions: Service Date/Time: Wednesday, October 19, 2016 14:19 - CONCLUSION: 1. Interval development of significant vasospasm in the left MCA and SRI territories. 2. Mild vasospasm in the basilar artery.. Gume Mckeon MD Cerebral Arteriogram 10/19/16 0000 Signed Impressions: Service Date/Time: Wednesday, October 19, 2016 16:06 - CONCLUSION: 1. Vasospasm in the left MCA and SRI territories 2. Spasmolytic infusion, left internal carotid artery as above.. 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 Gume Mckeon MD Pelvis X-Ray 10/05/16109 Signed Impressions: Service Date/Time: Wednesday, October 05, 2016 01:22 - CONCLUSION: Unremarkable examination of the pelvis. Ruben Acuña Jr., MD Chest CT 10/05/16109 Signed Impressions: Service Date/Time: Wednesday, October 05, 2016 01:46 - CONCLUSION: 1. No acute intrathoracic abnormality. 2. Bibasilar atelectasis. 3. Cardiomegaly. 4. Prior granulomatous disease. Ruben Acuña Jr., MD Cervical Spine CT 10/05/16109 Signed Impressions: Service Date/Time: Wednesday, October 05, 2016 01:40 - CONCLUSION: 1. No fracture or dislocation. 2. Multilevel degenerative changes. Ruben Acuña Jr., MD Abdomen/Pelvis CT 10/05/16109 Signed Impressions: Service Date/Time: Wednesday, October 05, 2016 01:46 - CONCLUSION: 1. No acute trauma. 2. Rounded area of decreased density involving the pancreatic head. I cannot completely exclude pancreatic head mass. At some point MRI of the pancreas is suggested to further evaluate. 3. Focal area of poor enhancement involving the left kidney. This may relate to an area of parenchymal scarring. I cannot completely exclude a mass. This can be further assessed with MRI as well. Ruben Acuña Jr., MD Objective Remarks GENERAL: This is a well-nourished, well-developed patient, in no apparent distress. SKIN: Warm and dry. HEENT: Normocephalic. Nonicteric. No injection or drainage. Nose without bleeding. NECK: Trachea midline. Supple. CARDIOVASCULAR: Regular rate and rhythm without murmurs, gallops, or rubs. RESPIRATORY: Clear to auscultation. Breath sounds equal bilaterally. No wheezes , rales, or rhonchi. GASTROINTESTINAL: Abdomen soft, non-tender, nondistended. Bowel Sounds normoactive x4.. MUSCULOSKELETAL: Extremities without clubbing, cyanosis, or edema. NEUROLOGICAL: Easily abusable. Oriented to person, and place confuse, periods of hallucination. Moves all extremities spontaneously, +5 strength in all extremities. Normal speech. 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 ICD Code: I60.8 - Other nontraumatic subarachnoid hemorrhage Status: Resolved (2) Hypertension ICD Code: I10 - Essential (primary) hypertension Status: Chronic (3) Intracranial hemorrhage ICD Code: I62.9 - Nontraumatic intracranial hemorrhage, unspecified Status: Resolved (4) Major neurocognitive disorder as late effect of traumatic brain injury with behavioral disturbance ICD Code: S06.9X9S - Unspecified intracranial injury with loss of consciousness of unspecified duration, sequela; F02.81 - Dementia in other diseases classified elsewhere with behavioral disturbance Status: Chronic (5) Encephalopathy ICD Code: G93.40 - Encephalopathy, unspecified Status: Resolved (6) Acute respiratory failure with hypoxia and hypercarbia ICD Code: J96.01 - Acute respiratory failure with hypoxia; J96.02 - Acute respiratory failure with hypercapnia Status: Resolved Assessment and Plan Mr. Nunez is a 51 year old male who was brought to the hospital as a trauma alert due to head injury after he fell in the bathroom and hit his head. Patient was unresponsive for approximately 15 minutes by the time ambulance services arrived. His mentation waxed and waned with GCS ranging from [address] head indicated subarachnoid hemorrhage, acute. No acute issues, doing well with plans to discharge soon as facility has been established. Auditory hallucinations Visual hallucinations - Psychiatry consulted and recommends continued use of seroquel - Continues to have hallucinations but patients behavior has been much improved with seroquel use. - Continue to monitor with ADLs - Monitor for agitation and increased hallucinations. - Behavior has been stable, calm when seen today. HTN, chronic - Continue amlodipine 5 mg daily, continue labetalol 100 mg every 12 hours - Stable. 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 Neuropsychology following patient ultimately for discharge placement and assistance with recommendations. Per neuropsych note, ongoing areas of concern include behavioral impulsivity, lack of insight and judgement. - Speech therapy recommends regular diet with thin liquids, Patient is eating well. PEG dc'd 01/08/17. - Continue Seroquel 200mg BID per psychiatry - Continue with reorientation - Encourage daily activities and up to chair. Acute hypoxic hypercarbic respiratory failure, resolved - Tracheostomy 10/23/16, removed, old trach site healed. - Monitor respiratory status C. difficile colitis, resolved - Completed Flagyl on 10/23 - No diarrhea reported - off Lactinex DVT prophylaxis: Lovenox. Ambulation. GI prophylaxis: Protonix. Discharge Planning Placement to [facility], paperwork has been faxed to who is currently out of state. Awaiting paperwork to be signed for transfer if not today Monday, CM following. Problem Qualifiers (1) Hypertension: Balbina Wilhelm May 05, 2017 13:22
[2017-05-05 20:06] VITALS: BP 129/77; PULSE 99; RESP 18; TEMP 98.1; O2SAT 95
[2017-05-05] MEDS: ENOXAPARIN SODIUM 40 MG/0.4 ML SYRINGE SQ SCH (21:20)
[2017-05-06 00:05] VITALS: BP 128/81; PULSE 88; RESP 18; TEMP 97.9; O2SAT 95
[2017-05-06 05:09] VITALS: BP 116/65; PULSE 74; RESP 18; TEMP 97.6; O2SAT 96
[2017-05-06 08:00] VITALS: BP 122/81; PULSE 84; RESP 18; TEMP 98.3; O2SAT 94
[2017-05-06] MEDS: LACTULOSE SYRUP 20 GM/30 ML CUP PO SCH (08:35)
[2017-05-06] MEDS: DOCUSATE SODIUM 50 MG/SENNA 8.6 MG TAB PO SCH ×2 (08:36→22:20)
[2017-05-06] MEDS: QUEtiapine FUMARATE 100 MG TAB PO SCH ×2 (08:36→12:00)
[2017-05-06] MEDS: PANTOPRAZOLE SOD 40 MG DELAYED RELEASE TAB PO SCH (08:36)
[2017-05-06] MEDS: POTASSIUM CHLORIDE 20 MEQ CONTROLLED RELEASE TAB PO SCH (08:36)
[2017-05-06] MEDS: LABETALOL HCL 100 MG TAB PO SCH ×2 (08:36→22:20)
[2017-05-06] MEDS: amLODIPine BESYLATE 5 MG TAB PO SCH (08:36)
[2017-05-06] MEDS: PRAVASTATIN SOD 40 MG TAB PO SCH (08:36)
[2017-05-06 12:00] VITALS: BP 129/81; PULSE 102; RESP 18; TEMP 97.4; O2SAT 96
--- NOTE | 2017-05-06 13:18 | HHI.PR ---
Subjective Remarks Follow up visit for patient with TBI, ICH and chronic encephalopathy. Patient seen today at nurses station, he ambulates back to his room without difficulties. He is oriented to self and able to follow simple, he is also able to recognize family members including his and daughter from photographs that he has in his room. He is not able to state their names, does not know where he is at or how long he has been here for. Patient sates he is waiting for a train ride. He denies any pain, SOB, fever, chills, nausea, vomiting, or diarrhea. Objective Vitals Vital Signs Date Time Temp Pulse Resp B/P (MAP) Pulse Ox O2 Delivery O2 Flow Rate FiO2 05/06/17 12:00 97.4 102 18 129/81 (97) 96 05/06/17 08:00 98.3 84 18 122/81 (95) 94 05/06/17 05:09 97.6 74 18 116/65 (82) 96 05/06/17 00:05 97.9 88 18 128/81 (97) 95 05/05/17 20:06 98.1 99 18 129/77 (94) 95 I/O 05/05/17 05/05/17 05/05/17 05/06/17 05/06/17 05/06/17 07:00 15:00 23:00 07:00 15:00 23:00 Intake Total 960 ml Balance 960 ml Intake Oral 960 ml # Voids 2 4 # Bowel Movements 0 Imaging Last Impressions Chest X-Ray 02/18/17 0000 Signed Impressions: Service Date/Time: Saturday, February 18, 2017 10:51 - CONCLUSION: Diminished lung volumes. No infiltrate. Tyrese Raymond MD Abdomen X-Ray 02/18/17 0000 Signed Impressions: Service Date/Time: Saturday, February 18, 2017 10:56 - CONCLUSION: Unremarkable abdomen. Tyrese Raymond MD Gall Bladder Ultrasound 02/17/17 0000 Signed Impressions: Service Date/Time: Friday, February 17, 2017 17:45 - CONCLUSION: Mildly enlarged liver and small amount of gallbladder sludge. Tim Hammonds MD Head CT 12/09/16 0000 Signed Impressions: Service Date/Time: Friday, December 09, 2016 17:36 - CONCLUSION: 1. Right ventriculostomy tube remains in place with decrease in ventricular size since November 24. There is some encephalomalacia around the shunt and a probable small infarct in the left basal ganglia. No new hemorrhage or shift. Tip Harris MD Transcranial Doppler Study Complete 10/26/16 0700 Signed Impressions: Service Date/Time: Wednesday, October 26, 2016 08:20 - CONCLUSION: Minimal interval improvement with no evidence for vasospasm. Christian Song MD FACR Neck CTA 10/19/16 0000 Signed Impressions: Service Date/Time: Wednesday, October 19, 2016 14:19 - CONCLUSION: Negative for dissection or significant stenosis. Christian Song MD FACR Head CTA 10/19/16 0000 Signed Impressions: Service Date/Time: Wednesday, October 19, 2016 14:19 - CONCLUSION: 1. Interval development of significant vasospasm in the left MCA and SRI territories. 2. Mild vasospasm in the basilar artery.. Gume Mckeon MD Cerebral Arteriogram 10/19/16 0000 Signed Impressions: Service Date/Time: Wednesday, October 19, 2016 16:06 - CONCLUSION: 1. Vasospasm in the left MCA and SRI territories 2. Spasmolytic infusion, left internal carotid artery as above.. 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 Gume Mckeon MD Pelvis X-Ray 10/05/16109 Signed Impressions: Service Date/Time: Wednesday, October 05, 2016 01:22 - CONCLUSION: Unremarkable examination of the pelvis. Ruben Acuña Jr., MD Chest CT 10/05/16109 Signed Impressions: Service Date/Time: Wednesday, October 05, 2016 01:46 - CONCLUSION: 1. No acute intrathoracic abnormality. 2. Bibasilar atelectasis. 3. Cardiomegaly. 4. Prior granulomatous disease. Ruben Acuña Jr., MD Cervical Spine CT 10/05/16109 Signed Impressions: Service Date/Time: Wednesday, October 05, 2016 01:40 - CONCLUSION: 1. No fracture or dislocation. 2. Multilevel degenerative changes. Ruben Acuña Jr., MD Abdomen/Pelvis CT 10/05/16 0110 Signed Impressions: Service Date/Time: Wednesday, October 05, 2016 01:46 - CONCLUSION: 1. No acute trauma. 2. Rounded area of decreased density involving the pancreatic head. I cannot completely exclude pancreatic head mass. At some point MRI of the pancreas is suggested to further evaluate. 3. Focal area of poor enhancement involving the left kidney. This may relate to an area of parenchymal scarring. I cannot completely exclude a mass. This can be further assessed with MRI as well. Ruben Acuña Jr., MD Objective Remarks GENERAL: This is a well-nourished, well-developed patient, in no apparent distress. SKIN: Warm and dry. HEENT: Normocephalic. Nonicteric. No injection or drainage. Nose without bleeding. NECK: Trachea midline. Supple. CARDIOVASCULAR: Regular rate and rhythm without murmurs, gallops, or rubs. RESPIRATORY: Clear to auscultation. Breath sounds equal bilaterally. No wheezes , rales, or rhonchi. GASTROINTESTINAL: Abdomen soft, non-tender, nondistended. Bowel Sounds normoactive x4.. MUSCULOSKELETAL: Extremities without clubbing, cyanosis, or edema. NEUROLOGICAL: Oriented to person, periods of hallucination, but calm and cooperative. Moves all extremities spontaneously, +5 strength in all extremities, ambulating without difficulty. Normal speech. 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 ICD Code: I60.8 - Other nontraumatic subarachnoid hemorrhage Status: Resolved (2) Hypertension ICD Code: I10 - Essential (primary) hypertension Status: Chronic (3) Intracranial hemorrhage ICD Code: I62.9 - Nontraumatic intracranial hemorrhage, unspecified Status: Resolved (4) Major neurocognitive disorder as late effect of traumatic brain injury with behavioral disturbance ICD Code: S06.9X9S - Unspecified intracranial injury with loss of consciousness of unspecified duration, sequela; F02.81 - Dementia in other diseases classified elsewhere with behavioral disturbance Status: Chronic (5) Encephalopathy ICD Code: G93.40 - Encephalopathy, unspecified Status: Resolved (6) Acute respiratory failure with hypoxia and hypercarbia ICD Code: J96.01 - Acute respiratory failure with hypoxia; J96.02 - Acute respiratory failure with hypercapnia Status: Resolved Assessment and Plan Mr. Nunez is a 51 year old male who was brought to the hospital as a trauma alert due to head injury after he fell in the bathroom and hit his head. Patient was unresponsive for approximately 15 minutes by the time ambulance services arrived. His mentation waxed and waned with GCS ranging from [address] head indicated subarachnoid hemorrhage, acute. No acute issues, calm and cooperative, doing well with plans to discharge soon as facility Monday. Auditory hallucinations Visual hallucinations - Psychiatry consulted and recommends continued use of seroquel - Continues to have hallucinations but patients behavior has been much improved with seroquel use. - Continue to monitor with ADLs - Monitor for agitation and increased hallucinations. - Behavior has been stable, calm and cooperative while seen today. HTN, chronic - Continue amlodipine 5 mg daily, continue labetalol 100 mg every 12 hours - Stable. 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 Neuropsychology following patient ultimately for discharge placement and assistance with recommendations. Per neuropsych note, ongoing areas of concern include behavioral impulsivity, lack of insight and judgement. - Speech therapy recommends regular diet with thin liquids, Patient is eating well. PEG dc'd 01/08/17. - Continue Seroquel 200mg BID per psychiatry - Continue with reorientation - Encourage daily activities with ambulation and up to chair. Acute hypoxic hypercarbic respiratory failure, resolved - Tracheostomy 10/23/16, removed, old trach site healed. - Monitor respiratory status C. difficile colitis, resolved - Completed Flagyl on 10/23 - No diarrhea reported - off Lactinex DVT prophylaxis: Lovenox. Ambulation. GI prophylaxis: Protonix. Discharge Planning Placement to [facility], paperwork has been faxed to who is currently out of state. Awaiting paperwork to be signed for transfer on Monday, CM following. Problem Qualifiers (1) Hypertension: Balbina Wilhelm May 06, 2017 13:18
[2017-05-06 16:00] VITALS: BP 115/63; PULSE 94; RESP 18; TEMP 98.4; O2SAT 94
[2017-05-06 20:20] VITALS: BP 120/68; PULSE 80; RESP 17; TEMP 98.8; O2SAT 98
[2017-05-06] MEDS: ENOXAPARIN SODIUM 40 MG/0.4 ML SYRINGE SQ SCH (22:20)
[2017-05-07] VITALS: BP 125/69; PULSE 64; RESP 18; TEMP 97.8; O2SAT 97
[2017-05-07 04:00] VITALS: BP 118/80; PULSE 80; RESP 19; TEMP 98.6; O2SAT 98
[2017-05-07 08:00] VITALS: BP 130/71; PULSE 80; RESP 16; TEMP 97.8; O2SAT 94
[2017-05-07] MEDS: LACTULOSE SYRUP 20 GM/30 ML CUP PO SCH (09:00)
[2017-05-07] MEDS: DOCUSATE SODIUM 50 MG/SENNA 8.6 MG TAB PO SCH ×2 (10:08→22:27)
[2017-05-07] MEDS: PRAVASTATIN SOD 40 MG TAB PO SCH (10:09)
[2017-05-07] MEDS: QUEtiapine FUMARATE 100 MG TAB PO SCH ×2 (10:09→12:00)
[2017-05-07] MEDS: POTASSIUM CHLORIDE 20 MEQ CONTROLLED RELEASE TAB PO SCH (10:09)
[2017-05-07] MEDS: amLODIPine BESYLATE 5 MG TAB PO SCH (10:09)
[2017-05-07] MEDS: LABETALOL HCL 100 MG TAB PO SCH ×2 (10:09→22:27)
[2017-05-07] MEDS: PANTOPRAZOLE SOD 40 MG DELAYED RELEASE TAB PO SCH (10:09)
[2017-05-07 12:00] VITALS: BP 124/67; PULSE 104; RESP 16; TEMP 97.2; O2SAT 92
--- NOTE | 2017-05-07 14:40 | HHI.PR ---
Subjective Remarks Follow up visit for patient with TBI, ICH and chronic encephalopathy. Patient seen and examined in room resting in no acute distress. He is abusable oriented to self with confusion. Denies chest pain, SOB, fever, chills, diarrhea, or constipation. He voices no acute concerns. Objective Vitals Vital Signs Date Time Temp Pulse Resp B/P (MAP) Pulse Ox O2 Delivery O2 Flow Rate FiO2 05/07/17 12:00 97.2 104 16 124/67 (86) 92 05/07/17 08:00 97.8 80 16 130/71 (90) 94 05/07/17 04:00 98.6 80 19 118/80 (93) 98 05/07/17 00:00 97.8 64 18 125/69 (87) 97 05/06/17 20:20 98.8 80 17 120/68 (85) 98 05/06/17 16:00 98.4 94 18 115/63 (80) 94 I/O 05/06/17 05/06/17 05/06/17 05/07/17 05/07/17 05/07/17 06:59 14:59 22:59 06:59 14:59 22:59 Intake Total 600 ml 1000 ml 1200 ml Balance 600 ml 1000 ml 1200 ml Intake Oral 600 ml 1000 ml 1200 ml # Voids 2 2 4 # Bowel Movements 1 0 0 Imaging Last Impressions Chest X-Ray 02/18/17 0000 Signed Impressions: Service Date/Time: Saturday, February 18, 2017 10:51 - CONCLUSION: Diminished lung volumes. No infiltrate. Tyrese Raymond MD Abdomen X-Ray 02/18/17 0000 Signed Impressions: Service Date/Time: Saturday, February 18, 2017 10:56 - CONCLUSION: Unremarkable abdomen. Tyrese Raymond MD Gall Bladder Ultrasound 02/17/17 0000 Signed Impressions: Service Date/Time: Friday, February 17, 2017 17:45 - CONCLUSION: Mildly enlarged liver and small amount of gallbladder sludge. Tim Hammonds MD Head CT 12/09/16 0000 Signed Impressions: Service Date/Time: Friday, December 09, 2016 17:36 - CONCLUSION: 1. Right ventriculostomy tube remains in place with decrease in ventricular size since November 24. There is some encephalomalacia around the shunt and a probable small infarct in the left basal ganglia. No new hemorrhage or shift. Tip Harris MD Transcranial Doppler Study Complete 10/26/16 0700 Signed Impressions: Service Date/Time: Wednesday, October 26, 2016 08:20 - CONCLUSION: Minimal interval improvement with no evidence for vasospasm. Christian Song MD FACR Neck CTA 10/19/16 0000 Signed Impressions: Service Date/Time: Wednesday, October 19, 2016 14:19 - CONCLUSION: Negative for dissection or significant stenosis. Christian Song MD FACR Head CTA 10/19/16 0000 Signed Impressions: Service Date/Time: Wednesday, October 19, 2016 14:19 - CONCLUSION: 1. Interval development of significant vasospasm in the left MCA and SRI territories. 2. Mild vasospasm in the basilar artery.. Gume Mckeon MD Cerebral Arteriogram 10/19/16 0000 Signed Impressions: Service Date/Time: Wednesday, October 19, 2016 16:06 - CONCLUSION: 1. Vasospasm in the left MCA and SRI territories 2. Spasmolytic infusion, left internal carotid artery as above.. 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 Gume Mckeon MD Pelvis X-Ray 10/05/16109 Signed Impressions: Service Date/Time: Wednesday, October 05, 2016 01:22 - CONCLUSION: Unremarkable examination of the pelvis. Ruben Acuña Jr., MD Chest CT 10/05/16109 Signed Impressions: Service Date/Time: Wednesday, October 05, 2016 01:46 - CONCLUSION: 1. No acute intrathoracic abnormality. 2. Bibasilar atelectasis. 3. Cardiomegaly. 4. Prior granulomatous disease. Ruben Acuña Jr., MD Cervical Spine CT 10/05/16109 Signed Impressions: Service Date/Time: Wednesday, October 05, 2016 01:40 - CONCLUSION: 1. No fracture or dislocation. 2. Multilevel degenerative changes. Ruben Acuña Jr., MD Abdomen/Pelvis CT 10/05/16109 Signed Impressions: Service Date/Time: Wednesday, October 05, 2016 01:46 - CONCLUSION: 1. No acute trauma. 2. Rounded area of decreased density involving the pancreatic head. I cannot completely exclude pancreatic head mass. At some point MRI of the pancreas is suggested to further evaluate. 3. Focal area of poor enhancement involving the left kidney. This may relate to an area of parenchymal scarring. I cannot completely exclude a mass. This can be further assessed with MRI as well. Ruben Acuña Jr., MD Objective Remarks GENERAL: This is a well-nourished, well-developed patient, in no apparent distress. SKIN: Warm and dry. HEENT: Normocephalic. Nonicteric. No injection or drainage. Nose without bleeding. NECK: Trachea midline. Supple. CARDIOVASCULAR: Regular rate and rhythm without murmurs, gallops, or rubs. RESPIRATORY: Clear to auscultation. Breath sounds equal bilaterally. No wheezes , rales, or rhonchi. GASTROINTESTINAL: Abdomen soft, non-tender, nondistended. Bowel Sounds normoactive x4.. MUSCULOSKELETAL: Extremities without clubbing, cyanosis, or edema. NEUROLOGICAL: Oriented to person, periods of hallucination, but calm and cooperative. Moves all extremities spontaneously, +5 strength in all extremities. Normal speech. 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 ICD Code: I60.8 - Other nontraumatic subarachnoid hemorrhage Status: Resolved (2) Hypertension ICD Code: I10 - Essential (primary) hypertension Status: Chronic (3) Intracranial hemorrhage ICD Code: I62.9 - Nontraumatic intracranial hemorrhage, unspecified Status: Resolved (4) Major neurocognitive disorder as late effect of traumatic brain injury with behavioral disturbance ICD Code: S06.9X9S - Unspecified intracranial injury with loss of consciousness of unspecified duration, sequela; F02.81 - Dementia in other diseases classified elsewhere with behavioral disturbance Status: Chronic (5) Encephalopathy ICD Code: G93.40 - Encephalopathy, unspecified Status: Resolved (6) Acute respiratory failure with hypoxia and hypercarbia ICD Code: J96.01 - Acute respiratory failure with hypoxia; J96.02 - Acute respiratory failure with hypercapnia Status: Resolved Assessment and Plan Mr. Nunez is a 51 year old male who was brought to the hospital as a trauma alert due to head injury after he fell in the bathroom and hit his head. Patient was unresponsive for approximately 15 minutes by the time ambulance services arrived. His mentation waxed and waned with GCS ranging from [address] head indicated subarachnoid hemorrhage, acute. No acute issues, calm and cooperative, doing well with plans to discharge soon as facility Tomorrow. Auditory hallucinations Visual hallucinations - Psychiatry consulted and recommends continued use of seroquel - Continues to have hallucinations but patients behavior has been much improved with seroquel use. - Continue to monitor with ADLs - Monitor for agitation and increased hallucinations. - Behavior has been stable, resting and cooperative while seen today. HTN, chronic - Continue amlodipine 5 mg daily, continue labetalol 100 mg every 12 hours - Stable. Intracranial hemorrhage, status post basilar artery coiling 10/05, Status post [employer]IOGEOGR[employer] shunt on 11/24/2016 Chronic encephalopathy Hydrocephalus Cortical blindness - Neurology signed off. Neuropsychology following patient ultimately for discharge placement and assistance with recommendations. Per neuropsych note, ongoing areas of concern include behavioral impulsivity, lack of insight and judgement. - Speech therapy recommends regular diet with thin liquids, Patient is eating well. PEG dc'd 01/08/17. - Continue Seroquel 200mg BID per psychiatry - Continue with reorientation - Encourage daily activities with ambulation and up to chair. Acute hypoxic hypercarbic respiratory failure, resolved - Tracheostomy 10/23/16, removed, old trach site healed. - Monitor respiratory status C. difficile colitis, resolved - Completed Flagyl on 10/23 - No diarrhea reported - off Lactinex DVT prophylaxis: Lovenox. Ambulation. GI prophylaxis: Protonix. Discharge Planning Placement to [facility], paperwork has been faxed to who [place] of [place]. Awaiting paperwork to be signed for transfer tomorrow, CM following. Problem Qualifiers (1) Hypertension: Balbina Wilhelm May 07, 2017 14:40
[2017-05-07] MEDS ORDERED: PRAV40TA PO (14:49)
[2017-05-07] MEDS ORDERED: QUET1TAB8 PO (14:49)
[2017-05-07] MEDS ORDERED: PANT40TA3 PO (14:49)
[2017-05-07] MEDS ORDERED: AMLO5 PO (14:49)
[2017-05-07] MEDS ORDERED: LABE100T2 PO (14:49)
[2017-05-07 16:00] VITALS: BP 156/86; PULSE 93; RESP 16; TEMP 98.4; O2SAT 93
[2017-05-07 20:00] VITALS: BP 136/71; PULSE 92; RESP 20; TEMP 98.4; O2SAT 96
[2017-05-07] MEDS: ENOXAPARIN SODIUM 40 MG/0.4 ML SYRINGE SQ SCH (22:27)
[2017-05-08] VITALS: BP 131/96; PULSE 86; RESP 20; TEMP 97.5; O2SAT 96
[2017-05-08 04:00] VITALS: BP 133/94; PULSE 88; RESP 20; TEMP 97.8; O2SAT 95
[2017-05-08 07:36] VITALS: BP 135/79; PULSE 88; RESP 18; TEMP 97.4; O2SAT 94
[2017-05-08] MEDS: QUEtiapine FUMARATE 100 MG TAB PO SCH ×2 (09:08→12:14)
[2017-05-08] MEDS: PRAVASTATIN SOD 40 MG TAB PO SCH (09:08)
[2017-05-08] MEDS: PANTOPRAZOLE SOD 40 MG DELAYED RELEASE TAB PO SCH (09:08)
[2017-05-08] MEDS: LACTULOSE SYRUP 20 GM/30 ML CUP PO SCH (09:08)
[2017-05-08] MEDS: amLODIPine BESYLATE 5 MG TAB PO SCH (09:08)
[2017-05-08] MEDS: DOCUSATE SODIUM 50 MG/SENNA 8.6 MG TAB PO SCH (09:08)
[2017-05-08] MEDS: LABETALOL HCL 100 MG TAB PO SCH (09:08)
[2017-05-08] MEDS: POTASSIUM CHLORIDE 20 MEQ CONTROLLED RELEASE TAB PO SCH (09:08)
--- NOTE | 2017-05-08 09:36 | HHI.PR ---
Subjective Remarks Follow-up visit TBI, ICH, chronic encephalopathy. Patient seen and examined today at the bedside. Patient states he is doing well. He just had a shower and now he is ready for his nails to be clipped. Spoke with and states that she is waiting for [facility] rehabilitation person to contact her back so she is able to sign all the papers for discharge for him and transferred there today. Patient denies any pain or discomfort. Objective Vitals Vital Signs Date Time Temp Pulse Resp B/P (MAP) Pulse Ox O2 Delivery O2 Flow Rate FiO2 05/08/17 07:36 97.4 88 18 135/79 (97) 94 05/08/17 04:00 97.8 88 20 133/94 (107) 95 05/08/17 00:00 97.5 86 20 131/96 (108) 96 05/07/17 20:00 98.4 92 20 136/71 (92) 96 05/07/17 16:00 98.4 93 16 156/86 (109) 93 05/07/17 12:00 97.2 104 16 124/67 (86) 92 I/O 05/07/17 05/07/17 05/07/17 05/08/17 05/08/17 05/08/17 07:00 15:00 23:00 07:00 15:00 23:00 Intake Total 1200 ml 1080 ml Balance 1200 ml 1080 ml Intake Oral 1200 ml 1080 ml # Voids 4 4 2 # Bowel Movements 0 0 Other Results Last Impressions Chest X-Ray 02/18/17 0000 Signed Impressions: Service Date/Time: Saturday, February 18, 2017 10:51 - CONCLUSION: Diminished lung volumes. No infiltrate. Tyrese Raymond MD Abdomen X-Ray 02/18/17 0000 Signed Impressions: Service Date/Time: Saturday, February 18, 2017 10:56 - CONCLUSION: Unremarkable abdomen. Tyrese Raymond MD Gall Bladder Ultrasound 02/17/17 0000 Signed Impressions: Service Date/Time: Friday, February 17, 2017 17:45 - CONCLUSION: Mildly enlarged liver and small amount of gallbladder sludge. Tim Hammonds MD Head CT 12/09/16 0000 Signed Impressions: Service Date/Time: Friday, December 09, 2016 17:36 - CONCLUSION: 1. Right ventriculostomy tube remains in place with decrease in ventricular size since November 24. There is some encephalomalacia around the shunt and a probable small infarct in the left basal ganglia. No new hemorrhage or shift. Tip Harris MD Transcranial Doppler Study Complete 10/26/16 0700 Signed Impressions: Service Date/Time: Wednesday, October 26, 2016 08:20 - CONCLUSION: Minimal interval improvement with no evidence for vasospasm. Christian Song MD FACR Neck CTA 10/19/16 0000 Signed Impressions: Service Date/Time: Wednesday, October 19, 2016 14:19 - CONCLUSION: Negative for dissection or significant stenosis. Christian Song MD FACR Head CTA 10/19/16 0000 Signed Impressions: Service Date/Time: Wednesday, October 19, 2016 14:19 - CONCLUSION: 1. Interval development of significant vasospasm in the left MCA and SRI territories. 2. Mild vasospasm in the basilar artery.. Gume Mckeon MD Cerebral Arteriogram 10/19/16 0000 Signed Impressions: Service Date/Time: Wednesday, October 19, 2016 16:06 - CONCLUSION: 1. Vasospasm in the left MCA and SRI territories 2. Spasmolytic infusion, left internal carotid artery as above.. 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 Gume Mckeon MD Pelvis X-Ray 10/05/16109 Signed Impressions: Service Date/Time: Wednesday, October 05, 2016 01:22 - CONCLUSION: Unremarkable examination of the pelvis. Ruben Acuña Jr., MD Chest CT 10/05/16109 Signed Impressions: Service Date/Time: Wednesday, October 05, 2016 01:46 - CONCLUSION: 1. No acute intrathoracic abnormality. 2. Bibasilar atelectasis. 3. Cardiomegaly. 4. Prior granulomatous disease. Ruben Acuña Jr., MD Cervical Spine CT 10/05/16109 Signed Impressions: Service Date/Time: Wednesday, October 05, 2016 01:40 - CONCLUSION: 1. No fracture or dislocation. 2. Multilevel degenerative changes. Ruben Acuña Jr., MD Abdomen/Pelvis CT 10/05/16 0110 Signed Impressions: Service Date/Time: Wednesday, October 05, 2016 01:46 - CONCLUSION: 1. No acute trauma. 2. Rounded area of decreased density involving the pancreatic head. I cannot completely exclude pancreatic head mass. At some point MRI of the pancreas is suggested to further evaluate. 3. Focal area of poor enhancement involving the left kidney. This may relate to an area of parenchymal scarring. I cannot completely exclude a mass. This can be further assessed with MRI as well. Ruben Acuña Jr., MD Imaging Last Impressions Chest X-Ray 02/18/17 0000 Signed Impressions: Service Date/Time: Saturday, February 18, 2017 10:51 - CONCLUSION: Diminished lung volumes. No infiltrate. Tyrese Raymond MD Abdomen X-Ray 02/18/17 0000 Signed Impressions: Service Date/Time: Saturday, February 18, 2017 10:56 - CONCLUSION: Unremarkable abdomen. Tyrese Raymond MD Gall Bladder Ultrasound 02/17/17 0000 Signed Impressions: Service Date/Time: Friday, February 17, 2017 17:45 - CONCLUSION: Mildly enlarged liver and small amount of gallbladder sludge. Tim Hammonds MD Head CT 12/09/16 0000 Signed Impressions: Service Date/Time: Friday, December 09, 2016 17:36 - CONCLUSION: 1. Right ventriculostomy tube remains in place with decrease in ventricular size since November 24. There is some encephalomalacia around the shunt and a probable small infarct in the left basal ganglia. No new hemorrhage or shift. Tip Harris MD Transcranial Doppler Study Complete 10/26/16 0700 Signed Impressions: Service Date/Time: Wednesday, October 26, 2016 08:20 - CONCLUSION: Minimal interval improvement with no evidence for vasospasm. Christian Song MD FACR Neck CTA 10/19/16 0000 Signed Impressions: Service Date/Time: Wednesday, October 19, 2016 14:19 - CONCLUSION: Negative for dissection or significant stenosis. Christian Song MD FACR Head CTA 10/19/16 0000 Signed Impressions: Service Date/Time: Wednesday, October 19, 2016 14:19 - CONCLUSION: 1. Interval development of significant vasospasm in the left MCA and SRI territories. 2. Mild vasospasm in the basilar artery.. Gume Mckeon MD Cerebral Arteriogram 10/19/16 0000 Signed Impressions: Service Date/Time: Wednesday, October 19, 2016 16:06 - CONCLUSION: 1. Vasospasm in the left MCA and SRI territories 2. Spasmolytic infusion, left internal carotid artery as above.. 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 Gume Mckeon MD Pelvis X-Ray 10/05/16109 Signed Impressions: Service Date/Time: Wednesday, October 05, 2016 01:22 - CONCLUSION: Unremarkable examination of the pelvis. Ruben Acuña Jr., MD Chest CT 10/05/16109 Signed Impressions: Service Date/Time: Wednesday, October 05, 2016 01:46 - CONCLUSION: 1. No acute intrathoracic abnormality. 2. Bibasilar atelectasis. 3. Cardiomegaly. 4. Prior granulomatous disease. Ruben Acuña Jr., MD Cervical Spine CT 10/05/16109 Signed Impressions: Service Date/Time: Wednesday, October 05, 2016 01:40 - CONCLUSION: 1. No fracture or dislocation. 2. Multilevel degenerative changes. Ruben Acuña Jr., MD Abdomen/Pelvis CT 10/05/16109 Signed Impressions: Service Date/Time: Wednesday, October 05, 2016 01:46 - CONCLUSION: 1. No acute trauma. 2. Rounded area of decreased density involving the pancreatic head. I cannot completely exclude pancreatic head mass. At some point MRI of the pancreas is suggested to further evaluate. 3. Focal area of poor enhancement involving the left kidney. This may relate to an area of parenchymal scarring. I cannot completely exclude a mass. This can be further assessed with MRI as well. Ruben Acuña Jr., MD Objective Remarks GENERAL: This is a well-nourished, well-developed patient, in no apparent distress. SKIN: Warm and dry. HEENT: Normocephalic. Nonicteric. No injection or drainage. Nose without bleeding. Airway patent. NECK: Trachea midline. Supple. CARDIOVASCULAR: Regular rate and rhythm without murmurs, gallops, or rubs. RESPIRATORY: Clear to auscultation. Breath sounds equal bilaterally. No wheezes , rales, or rhonchi. GASTROINTESTINAL: Abdomen soft, non-tender, nondistended. Bowel Sounds normoactive x4.. MUSCULOSKELETAL: Extremities without clubbing, cyanosis, or edema. NEUROLOGICAL: Awake and alert. Oriented to person, confuse. Moves all extremities. Normal speech. 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 ICD Code: I60.8 - Other nontraumatic subarachnoid hemorrhage Status: Resolved (2) Hypertension ICD Code: I10 - Essential (primary) hypertension Status: Chronic (3) Intracranial hemorrhage ICD Code: I62.9 - Nontraumatic intracranial hemorrhage, unspecified Status: Resolved (4) Major neurocognitive disorder as late effect of traumatic brain injury with behavioral disturbance ICD Code: S06.9X9S - Unspecified intracranial injury with loss of consciousness of unspecified duration, sequela; F02.81 - Dementia in other diseases classified elsewhere with behavioral disturbance Status: Chronic (5) Encephalopathy ICD Code: G93.40 - Encephalopathy, unspecified Status: Resolved (6) Acute respiratory failure with hypoxia and hypercarbia ICD Code: J96.01 - Acute respiratory failure with hypoxia; J96.02 - Acute respiratory failure with hypercapnia Status: Resolved Assessment and Plan Mr. Nunez is a 51 year old male who was brought to the hospital as a trauma alert due to head injury after he fell in the bathroom and hit his head. Patient was unresponsive for approximately 15 minutes by the time ambulance services arrived. His mentation waxed and waned with GCS ranging from [address] head indicated subarachnoid hemorrhage, acute. Auditory hallucinations Visual hallucinations - Psychiatry consulted and recommends continued use of seroquel - Continues to have hallucinations but patients behavior has been much improved with seroquel use. - Continue to monitor with ADLs - Monitor for agitation and increased hallucinations. If increase hallucinations noted, will reconsult psychiatry. - Behavior is improved. HTN, chronic - Continue amlodipine 5 mg daily, continue labetalol 100 mg every 12 hours - Monitor BP trend Intracranial hemorrhage, status post basilar artery coiling 10/05, Status post [employer] shunt on 11/24/2016 Chronic encephalopathy Hydrocephalus Cortical blindness - Neurology signed off. Neuropsychology following patient ultimately for discharge placement and assistance with recommendations. Per neuropsych note, ongoing areas of concern include behavioral impulsivity, lack of insight and judgement. - Speech therapy recommends regular diet with thin liquids, Patient is eating well. PEG dc'd 01/08/17. - Continue Seroquel 200mg BID per psychiatry - Continue with reorientation - Encourage daily activities Acute hypoxic hypercarbic respiratory failure, resolved - Tracheostomy 10/23/16, removed, old trach site healed. - Monitor respiratory status C. difficile colitis, resolved - Completed Flagyl on 10/23 - No diarrhea reported - off Lactinex DVT prophylaxis: Lovenox. Ambulation. GI prophylaxis: Protonix. Discussed with Patient, , nursing, CM and Dr. Perez Discharge Planning Patient is going to [facility] today. CM following. Problem Qualifiers (1) Hypertension: Tenzin Bronson May 08, 2017 09:36
--- NOTE | 2017-05-08 10:52 | HHI.DS ---
Discharge Summary Admission Date Oct 05, 2016 at 02:26 Discharge Date: May 08, 2017 Admitting Diagnosis Intracranial hemorrhage (1) Subarachnoid hemorrhage due to ruptured aneurysm ICD Code: I60.8 - Other nontraumatic subarachnoid hemorrhage Status: Resolved (2) Hypertension ICD Code: I10 - Essential (primary) hypertension Status: Chronic (3) Intracranial hemorrhage ICD Code: I62.9 - Nontraumatic intracranial hemorrhage, unspecified Status: Resolved (4) Major neurocognitive disorder as late effect of traumatic brain injury with behavioral disturbance ICD Code: S06.9X9S - Unspecified intracranial injury with loss of consciousness of unspecified duration, sequela; F02.81 - Dementia in other diseases classified elsewhere with behavioral disturbance Status: Chronic (5) Encephalopathy ICD Code: G93.40 - Encephalopathy, unspecified Status: Resolved (6) Acute respiratory failure with hypoxia and hypercarbia ICD Code: J96.01 - Acute respiratory failure with hypoxia; J96.02 - Acute respiratory failure with hypercapnia Status: Resolved Procedures 10/05/16 right frontal twist drill for ventriculostomy placement 10/20/16 arterial line placement 10/23/16 bedside percutaneous tracheostomy under direct bronchoscopic visualization 10/24/16 PEG tube placement at bedside Brief History - From Admission 51 year old male presents with being brought in as a trauma alert due to a head injury with altered mental status and a diminished GCS. The patient was in the bathroom and fell and hit his head. This was an unwitnessed fall. According to the patient's the patient had been unresponsive for approximately 15 minutes by the time ambulance services arrived. When they arrived the patient was noted to be a GCS of 14, however his mentation would wax and wane and go down as low as 3 again. On arrival to the emergency department he felt extremely nauseated. The CT of the head revealed diffuse subarachnoid bleed. Imaging Last Impressions Chest X-Ray 02/18/17 0000 Signed Impressions: Service Date/Time: Saturday, February 18, 2017 10:51 - CONCLUSION: Diminished lung volumes. No infiltrate. Tyrese Raymond MD Abdomen X-Ray 02/18/17 0000 Signed Impressions: Service Date/Time: Saturday, February 18, 2017 10:56 - CONCLUSION: Unremarkable abdomen. Tyrese Raymond MD Gall Bladder Ultrasound 02/17/17 0000 Signed Impressions: Service Date/Time: Friday, February 17, 2017 17:45 - CONCLUSION: Mildly enlarged liver and small amount of gallbladder sludge. Tim Hammonds MD Head CT 12/09/16 0000 Signed Impressions: Service Date/Time: Friday, December 09, 2016 17:36 - CONCLUSION: 1. Right ventriculostomy tube remains in place with decrease in ventricular size since November 24. There is some encephalomalacia around the shunt and a probable small infarct in the left basal ganglia. No new hemorrhage or shift. Tip Harris MD Transcranial Doppler Study Complete 10/26/16 0700 Signed Impressions: Service Date/Time: Wednesday, October 26, 2016 08:20 - CONCLUSION: Minimal interval improvement with no evidence for vasospasm. Christian Song MD FACR Neck CTA 10/19/16 0000 Signed Impressions: Service Date/Time: Wednesday, October 19, 2016 14:19 - CONCLUSION: Negative for dissection or significant stenosis. Christian Song MD FACR Head CTA 10/19/16 0000 Signed Impressions: Service Date/Time: Wednesday, October 19, 2016 14:19 - CONCLUSION: 1. Interval development of significant vasospasm in the left MCA and SRI territories. 2. Mild vasospasm in the basilar artery.. Gume Mckeon MD Cerebral Arteriogram 10/19/16 0000 Signed Impressions: Service Date/Time: Wednesday, October 19, 2016 16:06 - CONCLUSION: 1. Vasospasm in the left MCA and SRI territories 2. Spasmolytic infusion, left internal carotid artery as above.. 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 Gume Mckeon MD Pelvis X-Ray 10/05/16 0110 Signed Impressions: Service Date/Time: Wednesday, October 05, 2016 01:22 - CONCLUSION: Unremarkable examination of the pelvis. Ruben Acuña Jr., MD Chest CT 10/05/16109 Signed Impressions: Service Date/Time: Wednesday, October 05, 2016 01:46 - CONCLUSION: 1. No acute intrathoracic abnormality. 2. Bibasilar atelectasis. 3. Cardiomegaly. 4. Prior granulomatous disease. Ruben Acuña Jr., MD Cervical Spine CT 10/05/16109 Signed Impressions: Service Date/Time: Wednesday, October 05, 2016 01:40 - CONCLUSION: 1. No fracture or dislocation. 2. Multilevel degenerative changes. Ruben Acuña Jr., MD Abdomen/Pelvis CT 10/05/16109 Signed Impressions: Service Date/Time: Wednesday, October 05, 2016 01:46 - CONCLUSION: 1. No acute trauma. 2. Rounded area of decreased density involving the pancreatic head. I cannot completely exclude pancreatic head mass. At some point MRI of the pancreas is suggested to further evaluate. 3. Focal area of poor enhancement involving the left kidney. This may relate to an area of parenchymal scarring. I cannot completely exclude a mass. This can be further assessed with MRI as well. Ruben Acuña Jr., MD PE at Discharge GENERAL: This is a well-nourished, well-developed patient, in no apparent distress. SKIN: Warm and dry. HEENT: Normocephalic. Nonicteric. No injection or drainage. Nose without bleeding. NECK: Trachea midline. Supple. CARDIOVASCULAR: Regular rate and rhythm without murmurs, gallops, or rubs. RESPIRATORY: Clear to auscultation. Breath sounds equal bilaterally. No wheezes , rales, or rhonchi. GASTROINTESTINAL: Abdomen soft, non-tender, nondistended. Bowel Sounds normoactive x4.. MUSCULOSKELETAL: Extremities without clubbing, cyanosis, or edema. NEUROLOGICAL: Oriented to person, periods of hallucination, but calm and cooperative. Moves all extremities spontaneously, +5 strength in all extremities. Normal speech. Transfer Summary Medical record has been reviewed. Pt update on day of discharge Follow-up visit TBI, ICH, chronic encephalopathy. Patient seen and examined today at the bedside. Patient states he is doing well. He just had a shower and now he is ready for his nails to be clipped. Spoke with and states that she is waiting for [facility] and rehabilitation person to contact her back so she is able to sign all the papers for discharge for him and transferred there today. Patient denies any pain or discomfort. Hospital Course Patient is a 51-year-old male who was brought to the hospital as a trauma allergic to head injury after a fall in the bathroom and hit his head. Patient was found unresponsive for approximately 15 minutes but at time ambulance services arrived. His mentation has walks and waned with GCS from 14-3. CT of the head indicated subarachnoid hemorrhage. Patient is status post basilar artery coiling 10/05/16, he is also status post [employer] shunt that was placed 11/26/16. Neurology and neurosurgery has signed off on the patient. He was followed by neuropsychology would recommendation of placement for safer discharge for patient. Patient has behavioral impulsivity and lack of insight and judgment. He occasionally has some auditory and visual hallucinations which is being managed by cervical medication. During his hospitalization he had carbonate respiratory failure where in he had tracheostomy placement 10/23/16. Patient has been decannulated and failure has resolved. He also developed C. difficile colitis wherein he completed a dose of Flagyl since 10/23/16. He has not had any diarrhea reported even off of Lactinex medication. Patient has met maximal benefits of hospitalization. Clinically stable for discharge. Pt Condition on Discharge: Good Discharge Disposition: Discharge to SNF Discharge Time: > 30 minutes Discharge Instructions DIET: Follow Instructions for: Heart Healthy Diet Speech Therapy-Diet Recommends: Regular Activities you can perform: Regular-No Restrictions Follow up Referrals: PCP Follow-up - 2-3 Days New Medications: Amlodipine (Norvasc) 5 Mg Tab 5 MG PO DAILY for Blood Pressure Management, #30 TAB Labetalol (Labetalol) 100 Mg Tab 100 MG PO Q12HR for Blood Pressure Management, #30 TAB Pantoprazole (Pantoprazole) 40 Mg Tab 40 MG PO DAILY for Stomach, #30 TAB Pravastatin (Pravachol) 40 Mg Tab 40 MG PO DAILY for Cholesterol Management, #30 TAB Quetiapine (Quetiapine) 100 Mg Tab 200 MG PO BID@09,12 for Agitation, #60 TAB Tenzin Bronson May 08, 2017 10:52
--- NOTE | 2017-05-08 11:01 | HHI.DCPOC ---
Discharge Care Plan Diagnosis: (1) Encephalopathy (2) Subarachnoid hemorrhage due to ruptured aneurysm (3) Major neurocognitive disorder as late effect of traumatic brain injury with behavioral disturbance (4) Hypertension Your Health Problems Are: Difficulty with ADL Goals to Promote Your Health * To prevent worsening of your condition and complications * To maintain your health at the optimal level Directions to Meet Your Goals Take your medications as prescribed Follow your dietary instruction Follow activity as directed Keep your appointments as scheduled Take your immunizations and boosters as scheduled If your symptoms worsen call your PCP, if no PCP go to Urgent Care Center or Emergency Room Smoking is Dangerous to Your Health. Avoid second hand smoke Call the 24-hour hour crisis hotline for domestic abuse at Tenzin Bronson May 08, 2017 11:01
--- NOTE | 2017-05-08 11:01 | HHI.DCPOC ---
Discharge Care Plan Diagnosis: (1) Encephalopathy (2) Subarachnoid hemorrhage due to ruptured aneurysm (3) Major neurocognitive disorder as late effect of traumatic brain injury with behavioral disturbance (4) Hypertension Your Health Problems Are: Difficulty with ADL Goals to Promote Your Health * To prevent worsening of your condition and complications * To maintain your health at the optimal level Directions to Meet Your Goals Take your medications as prescribed Follow your dietary instruction Follow activity as directed Keep your appointments as scheduled Take your immunizations and boosters as scheduled If your symptoms worsen call your PCP, if no PCP go to Urgent Care Center or Emergency Room Smoking is Dangerous to Your Health. Avoid second hand smoke Call the 24-hour hour crisis hotline for domestic abuse at Tenzin Bronson May 08, 2017 11:01
--- NOTE | 2017-05-08 11:01 | HHI.DCPOC ---
Discharge Care Plan Diagnosis: (1) Encephalopathy (2) Subarachnoid hemorrhage due to ruptured aneurysm (3) Major neurocognitive disorder as late effect of traumatic brain injury with behavioral disturbance (4) Hypertension Your Health Problems Are: Difficulty with ADL Goals to Promote Your Health * To prevent worsening of your condition and complications * To maintain your health at the optimal level Directions to Meet Your Goals Take your medications as prescribed Follow your dietary instruction Follow activity as directed Keep your appointments as scheduled Take your immunizations and boosters as scheduled If your symptoms worsen call your PCP, if no PCP go to Urgent Care Center or Emergency Room Smoking is Dangerous to Your Health. Avoid second hand smoke Call the 24-hour hour crisis hotline for domestic abuse at Tenzin Bronson May 08, 2017 11:01
[2017-05-08] MEDS ORDERED: POTA20TA5 PO (11:03)
[2017-05-08 11:38] VITALS: BP 131/83; PULSE 90; RESP 17; TEMP 98.1; O2SAT 95
== END 2017-05-08 13:32 | DRG 3 ==
LOC: NEPI 01:08 → NEDA 02:26 → MERGE 02:26 → EDBD 02:26 → N03A 02:33 → N05B 12-06 17:09
PROVIDERS: ADMIT Internal Medicine Critical Care Medicine; ATTEND Hospitalist
PROC: 009630Z Drainage of Cerebral Ventricle with Drainage Device, Percutaneous Approach (ICD-10-PCS; principal; 2016-10-05)
PROC: 03VG3DZ Restriction of Intracranial Artery with Intraluminal Device, Percutaneous Approach (ICD-10-PCS; 2016-10-05)
PROC: B31R1ZZ Fluoroscopy of Intracranial Arteries using Low Osmolar Contrast (ICD-10-PCS; 2016-10-05)
PROC: 0BH18EZ Insertion of Endotracheal Airway into Trachea, Via Natural or Artificial Opening Endoscopic (ICD-10-PCS; 2016-10-05)
PROC: B34 Imaging, Upper Arteries, Ultrasonography (ICD-10-PCS; 2016-10-07)
PROC: B31R1ZZ Fluoroscopy of Intracranial Arteries using Low Osmolar Contrast (ICD-10-PCS; 2016-10-15)
PROC: B31G1ZZ Fluoroscopy of Bilateral Vertebral Arteries using Low Osmolar Contrast (ICD-10-PCS; 2016-10-15)
PROC: 3E053GC Introduction of Other Therapeutic Substance into Peripheral Artery, Percutaneous Approach (ICD-10-PCS; 2016-10-15)
PROC: B3171ZZ Fluoroscopy of Left Internal Carotid Artery using Low Osmolar Contrast (ICD-10-PCS; 2016-10-19)
PROC: 3E053GC Introduction of Other Therapeutic Substance into Peripheral Artery, Percutaneous Approach (ICD-10-PCS; 2016-10-19)
PROC: 03HY32Z Insertion of Monitoring Device into Upper Artery, Percutaneous Approach (ICD-10-PCS; 2016-10-20)
PROC: 0B113F4 Bypass Trachea to Cutaneous with Tracheostomy Device, Percutaneous Approach (ICD-10-PCS; 2016-10-23)
PROC: 5A1955Z Respiratory Ventilation, Greater than 96 Consecutive Hours (ICD-10-PCS; 2016-10-23)
PROC: 0BJ08ZZ Inspection of Tracheobronchial Tree, Via Natural or Artificial Opening Endoscopic (ICD-10-PCS; 2016-10-23)
PROC: 0DH63UZ Insertion of Feeding Device into Stomach, Percutaneous Approach (ICD-10-PCS; 2016-10-24)
PROC: 0DH63UZ Insertion of Feeding Device into Stomach, Percutaneous Approach (ICD-10-PCS; 2016-10-24)
PROC: 30233N1 Transfusion of Nonautologous Red Blood Cells into Peripheral Vein, Percutaneous Approach (ICD-10-PCS; 2016-10-31)
PROC: 00160J6 Bypass Cerebral Ventricle to Peritoneal Cavity with Synthetic Substitute, Open Approach (ICD-10-PCS; 2016-11-24)
DX: I60.4 Nontraumatic subarachnoid hemorrhage from basilar artery (principal); R65.21 Severe sepsis with septic shock; A41.9 Sepsis, unspecified organism; G93.49 Other encephalopathy; J18.9 Pneumonia, unspecified organism; N17.9 Acute kidney failure, unspecified; E87.0 Hyperosmolality and hypernatremia; J96.01 Acute respiratory failure with hypoxia; J96.02 Acute respiratory failure with hypercapnia; E86.1 Hypovolemia; G91.9 Hydrocephalus, unspecified; B37.0 Candidal stomatitis; N39.0 Urinary tract infection, site not specified; E44.1 Mild protein-calorie malnutrition; A04.72 Enterocolitis due to Clostridium difficile, not specified as recurrent; R44.0 Auditory hallucinations; I10 Essential (primary) hypertension; R73.9 Hyperglycemia, unspecified; N32.89 Other specified disorders of bladder; F01.50 Vascular dementia, unspecified severity, without behavioral disturbance, psychotic disturbance, mood disturbance, and anxiety; R44.1 Visual hallucinations; E78.5 Hyperlipidemia, unspecified; D64.9 Anemia, unspecified; E87.6 Hypokalemia; H47.619 Cortical blindness, unspecified side of brain; J40 Bronchitis, not specified as acute or chronic; K59.00 Constipation, unspecified; R10.32 Left lower quadrant pain; K21.9 Gastro-esophageal reflux disease without esophagitis; R21 Rash and other nonspecific skin eruption; B96.89 Other specified bacterial agents as the cause of diseases classified elsewhere; T83.098A Other mechanical complication of other urinary catheter, initial encounter; Z75.1 Person awaiting admission to adequate facility elsewhere; Y84.6 Urinary catheterization as the cause of abnormal reaction of the patient, or of later complication, without mention of misadventure at the time of the procedure; Z86.73 Personal history of transient ischemic attack (TIA), and cerebral infarction without residual deficits; Z88.0 Allergy status to penicillin; Z88.2 Allergy status to sulfonamides
CPT/HCPCS: 31500; 31600; 31624; 36226; 36430; 36556; 36569; 36600; 36620; 61210; 61624; 61650; 61651; 70450; 70496; 70498; 71010; 71260; 72125; 72170; 74000; 74177; 75894; 75898; 76705; 76937; 80048; 80053; 80177; 80202; 80307; 81001; 81003; 82140; 82435; 82565; 82805; 82945; 82947; 82948; 83605; 83690; 83735; 83930; 83935; 84100; 84132; 84155; 84157; 84295; 84300; 84484; 84520; 84550; 85007; 85025; 85027; 85384; 85610; 85730; 86403; 86850; 86900; 86901; 86920; 87015; 87040; 87070; 87077; 87086; 87116; 87186; 87205; 87206; 87493; 87641; 89051; 90471; 93005; 93886; 94002; 94003; 94640; 94664; 94770; 96374; 99152; 99153; 99291; A7520; C1760; C1769; C1887; C1894; C9113; G0269; G0390; J0171; J0461; J0690; J0692; J1200; J1580; J1630; J1642; J1644; J1650; J1940; J1953; J2060; J2250; J2270; J2370; J2405; J2710; J2765; J2997; J3010; J3370; J3480; J7030; J7040; J7050; P9016; Q0163; Q9967